=== PATIENT | female | born 1995 | race Caucasian/White ===

== ENCOUNTER 2020-07-07 15:47 | Emergency (ER) | payer BC, MEDICAID, SELFPAY ==
[2020-07-07] VITALS (8 sets, daily range): BP systolic 118–209; BP diastolic 83–124; PULSE 107–139; RESP 14–20; TEMP 36.2; O2SAT 93–100
--- NOTE | 2020-07-07 16:00 | ED.NAVMDI ---
HPI - Nausea/Vomiting/Diarrhea General Chief complaint: Nausea/Vomiting/Diarrhea Stated complaint: n/v Source: patient, EMS and RN notes reviewed Mode of arrival: EMS Limitations: no limitations History of Present Illness HPI Narrative: Patient is 25 years old white female presents with nausea, vomiting, stomach pain started yesterday. Patient had recurrent similar symptoms secondary to cyclic vomiting syndrome. Patient usually gets better on Haldol, Benadryl and morphine. Patient denies any fever, chills. History of type 1 diabetes, gastroparesis and cyclic vomiting syndrome Patient's mother told me that patient lost her job 1 week ago, been to 4 emergency room in the last 4 days for the same symptoms, sleeps on a mattress on the floor because no rooms available, severely depressed. Related Data Allergies Allergy/AdvReac Type Severity Reaction Status Date / Time hydralazine Allergy Hives Verified 07/07/20 15:51 Review of Systems Review of Systems: Narrative: CONSTITUTIONAL: Denies fever, chills, or sweats. EYES: Denies visual changes, redness, or discharge. ENT: Denies rhinorrhea, congestion, sore throat, or otalgia. CARDIOVASCULAR: Denies chest pain, palpitations, or edema. RESPIRATORY: Denies cough or dyspnea. GASTROINTESTINAL: Patient complaining of abdominal pain, nausea and vomiting GENITOURINARY: Denies dysuria or hematuria. SKIN: Denies rash or itching. MUSCULOSKELETAL: Denies back pain, joint pain, or myalgia. NEUROLOGIC: Denies headache, numbness, or weakness. PSYCHIATRIC: Denies anxiety or depression. PMFSH Family History Family History Other Family history of cardiovascular disease Social History Social History Smoking status: Never smoker Alcohol intake: never Exam Narrative: Exam Narrative: General appearance: Well-developed, well-nourished Skin: Normal color, right chest Port-A-Cath in place Head: Normocephalic, nontraumatic Eyes: Clear conjunctiva ENT: Oropharynx normal, ears normal, nose normal Neck: Supple, nontender Chest and respiratory: Airway patent, no respiratory distress, no accessory muscle use Heart: Regular rate/rhythm Abdomen: Soft, mild diffuse tenderness, no organomegaly, quiet bowel sounds Vascular: Normal peripheral pulses, normal capillary refill. Neurologic: Alert and oriented ?3, JAVA TECHNICAL MANAGER is normal as tested, no gross motor deficit Course Course Emergency Course: Stable, improving Vital Signs Vital signs: Vital Signs Temperature 36.2 C L 07/07/20 15:43 Pulse Rate 134 H 07/07/20 15:43 Respiratory Rate 20 07/07/20 15:43 Blood Pressure 209/124 H 07/07/20 15:43 Pulse Oximetry 93 07/07/20 15:43 Temperature 36.2 C L 07/07/20 16:35 Pulse Rate 109 H 07/07/20 17:53 Respiratory Rate 15 07/07/20 17:53 Blood Pressure 118/83 07/07/20 17:53 Pulse Oximetry 100 07/07/20 17:53 MDM - Nausea/Vomiting/Diarrhea MDM Narrative Medical decision making narrative: Cyclic vomiting syndrome is my concern Lab Data Result diagrams: 07/07/20 16:00 07/07/20 16:00 Labs: Lab Results 07/07/20 07/07/20 07/07/20 Range/Units 16:00 16:00 17:11 WBC 13.6 H (4.5-10.0) K/mm3 RBC 4.25 (4.2-5.4) M/mm3 Hgb 11.3 L (12.0-15.0) g/dL Hct 34.5 L (37.0-47.0) % MCV 81.2 (80-100) fl MCH 26.6 (26-34) pg MCHC 32.8 (32-36) g/dl RDW 13.1 (11.5-14.5) % Plt Count 435 H (150-375) k/mm3 MPV 10.1 (7.4-10.4) fl Immature Gran % (Auto) 0.2 (0-0.5) % Neut % (Auto) 70.0 (45.5-73.1) % Lymph % (Auto) 22.7 (18.3-44.2) %
[2020-07-07] MEDS: ONDANSETRON INJ 4 MG/2 ML VIAL IV PUSH (16:02)
[2020-07-07] MEDS: diphenhydrAMINE HCl INJ 50 MG/ML VIAL IV PUSH (16:03)
[2020-07-07] MEDS: MORPHINE SULFATE (*CRX) 4 MG/ML INJ IV PUSH (16:05)
[2020-07-07] MEDS: HALOPERIDOL LACTATE 5 MG/ML VIAL IM (16:05)
[2020-07-07 16:06] LABS: Basophils Percent Auto 0.3 % (0.2-1.2); Eosinophils Absolute Auto 0.1 K/mm3 (0-0.3); Eosinophils Percent Auto 0.5 % (0-4.4); Hematocrit 34.5 % (37.0-47.0); Hemoglobin 11.3 g/dL (12.0-15.0); Immature Granulocyte Absolute 0.03 K/mm3 (0.00-0.031); Immature Granulocyte Percent A 0.2 % (0-0.5); Lymphocytes Absolute Auto 3.09 K/mm3 (0.9-3.2); Lymphocytes Percent Auto 22.7 % (18.3-44.2); Mean Corpuscular HGB Conc 32.8 g/dl (32-36); Mean Corpuscular Hemoglobin 26.6 pg (26-34); Mean Corpuscular Volume 81.2 fl (80-100); Mean Platelet Volume 10.1 fl (7.4-10.4); Monocytes Absolute Auto 0.9 K/mm3 (0.1-0.6); Monocytes Percent Auto 6.3 % (2.6-8.5); Neutrophils Absolute Auto 9.5 K/mm3 (1.3-6.7); Platelet Count Result 435 k/mm3 (150-375); Red Blood Count 4.25 M/mm3 (4.2-5.4); Red Cell Distribution Width 13.1 % (11.5-14.5); White Blood Count 13.6 K/mm3 (4.5-10.0)
[2020-07-07] MEDS: SODIUM CHLORIDE 0.9% IV 1,000 ML 999 ML IV CONT (16:07)
[2020-07-07 16:19] LABS: Alanine Aminotransferase 14 U/L (4-35); Albumin Level 3.3 g/dL (3.5-5.1); Alkaline Phosphatase 104 U/L (38-126); Anion Gap 16 mmol/L (8-16); Aspartate Amino Transferase 16 U/L (14-36); Bilirubin,Total 0.5 mg/dL (0.2-1.3); Blood Urea Nitrogen 11 mg/dL (7-17); Calcium 8.8 mg/dL (8.4-10.2); Carbon Dioxide 17 mmol/L (22-30); Chloride 102 mmol/L (98-107); Estimated CRCL calculation 55 ml/min; Estimated Glomerular Filt Rate 55; Glucose 441 mg/dL (65-105); Lipase 65 U/L (23-300); Sodium 135 mmol/L (137-145)
[2020-07-07 17:23] LABS: Add Urine Microscopic? YES; Appearance Urine Clear (Clear); Bacteria Urine Trace /hpf; Bilirubin Urine Negative (Negative); Blood Urine 1+ (Negative); Color Urine Straw (Yellow); Glucose Urine UA 3+ mg/dL (Negative); Ketones Urine 2+ mg/dL (Negative); Leukocyte Esterase Ur Negative LEU/UL (Negative); Mucus Urine Rare /lpf; Nitrate Urine Negative (Negative); Protein Urine 3+ mg/dL (Negative); RBC Urine 0-2 /hpf (0-2); Specific Grav Ur 1.017 (1.001-1.035); Squamous Epithelial Cell Urine Moderate /hpf (Few); Urobilinogen Urine Negative mg/dL (<2.0); WBC Urine 0-3 /hpf
[2020-07-07] MEDS: INSULIN HUMAN REGULAR (*BKC) 100 UNITS/ML 6 UNITS SUB-Q (18:40)
--- NOTE | 2020-07-07 18:58 | PC.NURSE ---
Patient tolerated PO challenge well at this time.
== END 2020-07-07 19:27 | disposition home or self-care (01) ==
PROVIDERS: Emergency Provider Emergency Medicine; PCP Family Medicine
DX: R11.15 Cyclical vomiting syndrome unrelated to migraine (principal); E10.43 Type 1 diabetes mellitus with diabetic autonomic (poly)neuropathy; K31.84 Gastroparesis; E10.65 Type 1 diabetes mellitus with hyperglycemia; F32.9 Major depressive disorder, single episode, unspecified
CPT/HCPCS: 36415; 80053; 81001; 83690; 85025; 96361; 96372; 96374; 96375; 99284; J1200; J1630; J1815; J2270; J2405; J7030

== ENCOUNTER 2021-08-12 06:56 | Emergency (ER) | payer OTHER, SELFPAY ==
[2021-08-12] VITALS (8 sets, daily range): BP systolic 144–208; BP diastolic 86–122; PULSE 106–134; RESP 13–29; TEMP 36.8; O2SAT 98–100
[2021-08-12 07:08] LABS: Glucose Point of Care 408 mg/dl (65-105)
[2021-08-12] MEDS: INSULIN HUMAN REGULAR (*BKC) 100 UNITS/ML IV PUSH (07:43)
[2021-08-12] MEDS: METOCLOPRAMIDE HCL INJ 10 MG/2 ML VIAL IV PUSH (07:44)
[2021-08-12] MEDS: SODIUM CHLORIDE 0.9% IV 1,000 ML 999 ML IV CONT ×2 (07:44→09:43)
[2021-08-12] MEDS: diphenhydrAMINE HCl INJ 50 MG/ML VIAL IV PUSH (07:44)
[2021-08-12] MEDS: MORPHINE SULFATE (*CRX) 4 MG/ML INJ IV PUSH (07:44)
--- NOTE | 2021-08-12 07:48 | ED.NAVMDI ---
HPI - Nausea/Vomiting/Diarrhea General Chief complaint: Nausea/Vomiting/Diarrhea Stated complaint: nausea/vomiting Time Seen by Provider: 08/12/21 07:13 Source: patient Mode of arrival: ambulatory Limitations: no limitations History of Present Illness HPI Narrative: Patient is 26 years old white female presented to the ED with intractable vomiting. History of type 1 diabetes since 9 years old, cyclic vomiting syndrome. Patient was hospitalized at [facility] for 4 days and was discharged 2 days ago for cyclic vomiting syndrome. Patient reports that her symptoms did not get better at the time of discharge. Brought to the emergency room by private car. Patient lives with her mom with a lot of stress. She denies any fever, chills, chest pain or headache. She is telling me that usually Haldol and morphine usually gets the vomiting to quit Related Data Allergies Allergy/AdvReac Type Severity Reaction Status Date / Time hydralazine Allergy Hives Verified 08/12/21 06:59 Review of Systems Review of Systems: All systems reviewed & are unremarkable except as noted in HPI and below PMFSH Family History Family History Other Family history of cardiovascular disease Social History Social History Smoking status: Never smoker Alcohol intake: never Gender identity (if verbalized by the patient): Female Exam Narrative: General appearance: Well-developed, well-nourished, sick looking Skin: Pale Head: Normocephalic, nontraumatic Eyes: Clear conjunctiva ENT: Oropharynx normal, ears normal, nose normal Neck: Supple, nontender Chest and respiratory: Airway patent, no respiratory distress, no accessory muscle use Heart: Regular rate/rhythm Abdomen: Soft, mild diffuse abdominal tenderness, no guarding or rebound, no organomegaly, quiet bowel sounds Vascular: Normal peripheral pulses, normal capillary refill. Musculoskeletal: Normal range of motion, nontender back Neurologic: Alert and oriented ?3, BOTTLING LINE ATTENDANT is normal as tested, no gross motor deficit Course Course Emergency Course: Work-up today showed hyperglycemia, Diagnosis anxiety/inducing vomiting, cyclic vomiting syndrome, gastroparesis. Patient received 2 L of normal saline IV, 5 mg of Haldol IM, 10 mg of Reglan IV, 50 mg of Benadryl IV. Prior to discharge, Patient was able to keep fluids and crackers down prior to discharge Vital Signs Vital signs: Vital Signs Temperature 36.8 C 08/12/21 07:03 Pulse Rate 127 H 08/12/21 07:03 Respiratory Rate 20 08/12/21 07:03 Blood Pressure 170/114 H 08/12/21 07:03 Pulse Oximetry 100 08/12/21 07:03 Temperature 36.8 C 08/12/21 07:03 Pulse Rate 106 H 08/12/21 09:30 Respiratory Rate 13 08/12/21 09:30 Blood Pressure 144/86 H 08/12/21 09:30 Pulse Oximetry 98 08/12/21 09:30 MDM - Nausea/Vomiting/Diarrhea Differential Diagnosis Differential diagnosis: Likely other (Cyclic vomiting syndrome, gastroparesis, electrolyte imbalance, stress/depression) Lab Data Result diagrams: 08/12/21 08:13 08/12/21 08:13 Labs: Lab Results 08/12/21 08/12/21 08/12/21 Range/Units 07:06 08:13 08:13 WBC 10.6 H (4.5-10.0) K/mm3 RBC 4.41 (4.2-5.4) M/mm3 Hgb 10.5 L (12.0-15.0) g/dL Hct 33.7 L (37.0-47.0) % MCV 76.4 L (80-100) fl MCH 23.8 L (26-34) pg MCHC 31.2 L (32-36) g/dl RDW 16.8 H (11.5-14.5) % Plt Count 584 H (150-375) k/mm3 MPV 9.6 (7.4-10.4) fl Immature Gran % (Auto) 0.4 (0-0.5) % Neut % (Auto) 84.8 H (45.5-73.1) % Lymph % (Auto) 13.6 L
[2021-08-12] MEDS: HALOPERIDOL LACTATE 5 MG/ML VIAL IM (07:49)
[2021-08-12] MEDS: INSULIN HUMAN REGULAR (*BKC) 100 UNITS in SODIUM CHLORIDE 0.9% IV 99 ML 7 UNITS IV CONT (08:24)
[2021-08-12 08:25] LABS: Basophils Percent Auto 0.1 % (0.2-1.2); Eosinophils Percent Auto 0.2 % (0-4.4); Hematocrit 33.7 % (37.0-47.0); Hemoglobin 10.5 g/dL (12.0-15.0); Immature Granulocyte Absolute 0.04 K/mm3 (0.00-0.031); Immature Granulocyte Percent A 0.4 % (0-0.5); Lymphocytes Absolute Auto 1.44 K/mm3 (0.9-3.2); Lymphocytes Percent Auto 13.6 % (18.3-44.2); Mean Corpuscular HGB Conc 31.2 g/dl (32-36); Mean Corpuscular Hemoglobin 23.8 pg (26-34); Mean Corpuscular Volume 76.4 fl (80-100); Mean Platelet Volume 9.6 fl (7.4-10.4); Monocytes Absolute Auto 0.1 K/mm3 (0.1-0.6); Monocytes Percent Auto 0.9 % (2.6-8.5); Neutrophils Percent Auto 84.8 % (45.5-73.1); Platelet Count Result 584 k/mm3 (150-375); Red Blood Count 4.41 M/mm3 (4.2-5.4); Red Cell Distribution Width 16.8 % (11.5-14.5); White Blood Count 10.6 K/mm3 (4.5-10.0)
[2021-08-12 08:28] LABS: Glucose Point of Care 418 mg/dl (65-105)
[2021-08-12 08:29] LABS: Add Urine Microscopic? YES; Appearance Urine Cloudy (Clear); Bilirubin Urine Negative (Negative); Blood Urine 1+ (Negative); Color Urine Straw (Yellow); Glucose Urine UA 3+ mg/dL (Negative); Ketones Urine 1+ mg/dL (Negative); Leukocyte Esterase Ur Negative LEU/UL (Negative); Mucus Urine Rare /lpf; Nitrate Urine Negative (Negative); Protein Urine 3+ mg/dL (Negative); Specific Grav Ur 1.017 (1.001-1.035); Squamous Epithelial Cell Urine Many /hpf (Few); Urobilinogen Urine Negative mg/dL (<2.0)
[2021-08-12 08:35] LABS: Alanine Aminotransferase 18 U/L (4-35); Albumin Level 3.3 g/dL (3.5-5.1); Alkaline Phosphatase 121 U/L (38-126); Anion Gap 14 mmol/L (8-16); Aspartate Amino Transferase 22 U/L (14-36); Bilirubin,Total 0.2 mg/dL (0.2-1.3); Blood Urea Nitrogen 20 mg/dL (7-17); Calcium 8.6 mg/dL (8.4-10.2); Carbon Dioxide 18 mmol/L (22-30); Chloride 108 mmol/L (98-107); Estimated CRCL calculation 50 ml/min; Estimated Glomerular Filt Rate 50; Glucose 436 mg/dL (65-110); Phosphorus 4.2 mg/dL (2.5-4.5); Potassium 3.9 mmol/L (3.4-5.0); Sodium 140 mmol/L (137-145)
[2021-08-12 08:39] LABS: Beta-Hydroxybutyrate/Acetoacetate 4.14 mmol/L (0.02-0.27)
[2021-08-12 08:41] LABS: Alveolar/Arterial O2 Gradient 12.4 mmHg; Carboxyhemoglobin 0.3 % THb (0-2.0); Fractional Inspired Oxygen 21 %; HCO3 ABG 18.8 mEq/l (22.0-26.0); Methemoglobin ABG 0.3 %THb (0-1.5); Oxygen Content ABG 14.3 %vol (16.0-22.0); Oxygen Saturation ABG 97.8 % (95.0-100.0); Oxyhemoglobin 96.7 % THb (90.0-100.0); PCO2 ABG 30.2 mmHg (35.0-45.0); PO2 ABG 101.2 mmHg (80.0-100.0); PO2 FiO2 Ratio Arterial Blood 4.82 %; Reduced Hemoglobin 2.7 %THb (0-5.0); Total Hemoglobin 10.4 g/dL (12.0-18.0); pH ABG 7.411 (7.350-7.450)
[2021-08-12 08:43] LABS: Modified Allen's Test Pass; Site Drawn LEFT RADIAL
--- NOTE | 2021-08-12 08:58 | PC.NURSE ---
Per Dr. Babin, discontinuing insulin drip
[2021-08-12 09:36] LABS: Glucose Point of Care 301 mg/dl (65-105)
[2021-08-12] MEDS: HEPARIN SODIUM LOCK FLUSH 500 UNITS/5 ML VIAL IV PUSH (12:03)
== END 2021-08-12 12:04 | disposition home or self-care (01) ==
PROVIDERS: Emergency Provider Emergency Medicine; PCP Family Medicine
DX: R11.15 Cyclical vomiting syndrome unrelated to migraine (principal); E10.43 Type 1 diabetes mellitus with diabetic autonomic (poly)neuropathy; K31.84 Gastroparesis
CPT/HCPCS: 36415; 36600; 80053; 81001; 81025; 82010; 82375; 82805; 82948; 83050; 83735; 84100; 85025; 87086; 87088; 96361; 96365; 96372; 96375; 96376; 99284; J1200; J1630; J1642; J1815; J2270; J2765; J7030

== ENCOUNTER 2021-08-13 18:05 | Emergency (ER) | payer OTHER, SELFPAY ==
[2021-08-13] VITALS (7 sets, daily range): BP systolic 102–183; BP diastolic 88–110; PULSE 109–128; RESP 18; TEMP 37.1; O2SAT 98–100
[2021-08-13 18:12] LABS: Glucose Point of Care 218 mg/dl (65-105)
[2021-08-13] MEDS: METOCLOPRAMIDE HCL INJ 10 MG/2 ML VIAL IV PUSH (18:59)
[2021-08-13] MEDS: diphenhydrAMINE HCl INJ 50 MG/ML VIAL 25 MG IV PUSH (18:59)
[2021-08-13] MEDS: SODIUM CHLORIDE 0.9% IV 1,000 ML 999 ML IV CONT ×2 (18:59→21:26)
--- NOTE | 2021-08-13 19:00 | PC.NURSE ---
Port A cath accessed by RN. Unable to get blood return. This RN and ED phleb attempted x 1. Unable to obtain. Lab called for blood draw attempt.
[2021-08-13 19:47] LABS: Basophils Percent Auto 0.4 % (0.2-1.2); Eosinophils Absolute Auto 0.1 K/mm3 (0-0.3); Eosinophils Percent Auto 0.8 % (0-4.4); Hematocrit 33.6 % (37.0-47.0); Hemoglobin 10.4 g/dL (12.0-15.0); Immature Granulocyte Absolute 0.03 K/mm3 (0.00-0.031); Immature Granulocyte Percent A 0.4 % (0-0.5); Lymphocytes Absolute Auto 2.75 K/mm3 (0.9-3.2); Lymphocytes Percent Auto 33.2 % (18.3-44.2); Mean Corpuscular Volume 77.6 fl (80-100); Monocytes Absolute Auto 0.6 K/mm3 (0.1-0.6); Monocytes Percent Auto 6.9 % (2.6-8.5); Neutrophils Absolute Auto 4.8 K/mm3 (1.3-6.7); Neutrophils Percent Auto 58.3 % (45.5-73.1); Platelet Count Result 519 k/mm3 (150-375); Red Blood Count 4.33 M/mm3 (4.2-5.4); Red Cell Distribution Width 16.6 % (11.5-14.5); White Blood Count 8.3 K/mm3 (4.5-10.0)
[2021-08-13 19:59] LABS: Alanine Aminotransferase 14 U/L (4-35); Albumin Level 3.1 g/dL (3.5-5.1); Alkaline Phosphatase 113 U/L (38-126); Anion Gap 12 mmol/L (8-16); Aspartate Amino Transferase 23 U/L (14-36); Bilirubin,Total 0.4 mg/dL (0.2-1.3); Blood Urea Nitrogen 13 mg/dL (7-17); Calcium 8.3 mg/dL (8.4-10.2); Carbon Dioxide 18 mmol/L (22-30); Chloride 106 mmol/L (98-107); Estimated CRCL calculation 51 ml/min; Estimated Glomerular Filt Rate 50; Glucose 234 mg/dL (65-110); Lipase 17 U/L (23-300); Potassium 3.3 mmol/L (3.4-5.0); Sodium 136 mmol/L (137-145)
--- NOTE | 2021-08-13 19:59 | PC.NURSE ---
Pt reports abdominal pain. ALTON Reyes made aware.
[2021-08-13 20:08] LABS: Add Urine Microscopic? YES; Appearance Urine Cloudy (Clear); Bilirubin Urine Negative (Negative); Blood Urine 1+ (Negative); Color Urine Yellow (Yellow); Glucose Urine UA 3+ mg/dL (Negative); Ketones Urine 1+ mg/dL (Negative); Leukocyte Esterase Ur Negative LEU/UL (Negative); Mucus Urine Rare /lpf; Nitrate Urine Negative (Negative); Protein Urine 3+ mg/dL (Negative); Specific Grav Ur 1.011 (1.001-1.035); Squamous Epithelial Cell Urine Many /hpf (Few); Urobilinogen Urine Negative mg/dL (<2.0)
--- NOTE | 2021-08-13 21:14 | PC.NURSE ---
Pt up to [facility] . States she took a few sips of diet rafa mist and was unable to tolerate liquids at this time, no nausea or vomiting.
[2021-08-13] MEDS: MORPHINE SULFATE (*CRX) 4 MG/ML INJ IV PUSH (21:26)
--- NOTE | 2021-08-13 21:36 | ED.NAVMDI ---
HPI - Nausea/Vomiting/Diarrhea General Chief complaint: Nausea/Vomiting/Diarrhea Stated complaint: nausea, lightheaded Time Seen by Provider: 08/13/21 18:21 History of Present Illness HPI Narrative: Patient is a 26-year-old female with history of type 1 diabetes and gastroparesis who presents ER with nausea and vomiting. Patient reports that she is currently in town from [place] visiting her mother. Her underwriting support manager is located in [place]. Patient reports that she receives a cocktail of Reglan, morphine, and Benadryl and this helps her symptoms. Blood sugars have been running in the 200s. She has been able to give herself medication. She just reports her vomiting has been intense and she cannot control at home with Zofran. Related Data Allergies Allergy/AdvReac Type Severity Reaction Status Date / Time hydralazine Allergy Hives Verified 08/12/21 06:59 Review of Systems Review of Systems: All systems reviewed & are unremarkable except as noted in HPI and below Constitutional: Constitutional: Denies chills, Reports fatigue, Denies fever(s) and Reports weakness ENT: Denies nasal congestion and Denies sore throat Cardiovascular: Cardiovascular: Denies chest pain, Denies rapid heart rate and Denies radiating jaw, neck or arm pain Respiratory: Respiratory: Denies cough and Denies dyspnea Gastrointestinal: Gastrointestinal: Reports abdominal pain, Denies diarrhea, Reports nausea and Reports vomiting PMFSH Past Medical History Medical History (Updated 08/14/21 @ 00:00 by Background Daemon) Depression Diabetic gastroparesis Port-A-Cath in place Type 1 diabetes Surgical History Surgical History (Updated 08/13/21 @ 21:42 by Leo Reyes MD) History of cholecystectomy Family History Family History Other Family history of cardiovascular disease Social History Social History Smoking status: Never smoker Alcohol intake: never Gender identity (if verbalized by the patient): Female Exam Narrative: GENERAL: Chronically ill-appearing, well-nourished, and in no acute distress. HEAD: Normocephalic, atraumatic. EYES: PERRL and EOMI. NECK: Supple. CHEST: Clear to auscultation. No respiratory distress. Port-A-Cath in right chest wall. HEART: Regular rate and rhythm. Normal peripheral pulses. ABDOMEN: Soft, mild diffuse discomfort worse in the epigastrium, nondistended. EXTREMITIES: Normal range of motion. No edema. SKIN: Warm, dry, no rash. NEURO: Alert and oriented x3. PSYCH: Normal mood and affect. Course Course Emergency Course: Patient hydrated. She received some Reglan and Benadryl and she was not vomiting in the room. She was accusing the nurse of leaking some of her medications. Patient had persistent tachycardia. However her symptoms significantly improved after she received her morphine. Suspect that patient is having issues with narcotic withdrawal as opposed to gastroparesis. She will be discharged. Vital Signs Vital signs: Vital Signs Temperature 98.7 F 08/13/21 18:12 Pulse Rate 120 H 08/13/21 18:12 Respiratory Rate 18 08/13/21 18:12 Blood Pressure 174/100 H 08/13/21 18:12 Pulse Oximetry 100 08/13/21 18:12 Temperature 98.7 F 08/13/21 18:12 Pulse Rate 110 H 08/13/21 22:30 Respiratory Rate 18 08/13/21 22:30 Blood Pressure 168/98 H 08/13/21 22:30 Pulse Oximetry 98 08/13/21 22:30 MDM - Nausea/Vomiting/Diarrhea Lab Data Result diagrams: 08/13/21 19:43 08/13/21 19:43 Labs: Lab Results 08/13/21 08/13/21 08/13/21 Range/Units 18:09 19:43 19:43 WBC 8.3 (4.5-10.0) K/mm3 RBC 4.33 (4.2-5.4) M/mm3 Hgb 10.4 L (12.0-15.0) g/dL Hct 33.6 L (37.0-47.0) % MCV 77.6 L (80-100) fl MCH 24.0 L (26-34) pg MCHC 31.0 L (32-36) g/dl RDW 16.6 H (11.5-14.5) % Plt Count 519 H (150-375)
--- NOTE | 2021-08-13 21:54 | PC.NURSE ---
Pt laying on stretcher, reports relief of s/s.
== END 2021-08-13 22:31 | disposition home or self-care (01) ==
PROVIDERS: Emergency Provider Emergency Medicine; PCP Family Medicine
DX: E10.43 Type 1 diabetes mellitus with diabetic autonomic (poly)neuropathy (principal); K31.84 Gastroparesis; Z76.5 Malingerer [conscious simulation]
CPT/HCPCS: 36415; 80053; 81001; 81025; 82948; 83690; 85025; 87086; 87088; 96361; 96374; 96375; 99284; J1200; J2270; J2765; J7030

== ENCOUNTER 2022-02-23 10:51 | Emergency (ER) | payer OTHER, SELFPAY ==
[2022-02-23 11:22] VITALS: BP 155/100; PULSE 115; RESP 16; TEMP 36.8; O2SAT 100
[2022-02-23 12:26] LABS: Basophils Percent Auto 0.3 % (0.2-1.2); Eosinophils Absolute Auto 0.1 K/mm3 (0-0.3); Eosinophils Percent Auto 1.8 % (0-4.4); Hemoglobin 12.5 g/dL (12.0-15.0); Immature Granulocyte Absolute 0.01 K/mm3 (0.00-0.031); Immature Granulocyte Percent A 0.1 % (0-0.5); Lymphocytes Absolute Auto 2.36 K/mm3 (0.9-3.2); Lymphocytes Percent Auto 30.3 % (18.3-44.2); Mean Corpuscular HGB Conc 32.9 g/dl (32-36); Mean Corpuscular Hemoglobin 25.9 pg (26-34); Mean Corpuscular Volume 78.7 fl (80-100); Mean Platelet Volume 10.1 fl (7.4-10.4); Monocytes Absolute Auto 0.4 K/mm3 (0.1-0.6); Monocytes Percent Auto 4.9 % (2.6-8.5); Neutrophils Absolute Auto 4.9 K/mm3 (1.3-6.7); Neutrophils Percent Auto 62.6 % (45.5-73.1); Platelet Count Result 451 k/mm3 (150-375); Red Blood Count 4.83 M/mm3 (4.2-5.4); Red Cell Distribution Width 13.6 % (11.5-14.5); White Blood Count 7.8 K/mm3 (4.5-10.0)
[2022-02-23 12:27] LABS: Appearance Urine Clear (Clear); Bilirubin Urine Negative (Negative); Blood Urine 1+ (Negative); Glucose Urine UA 2+ mg/dL (Negative); Ketones Urine Trace mg/dL (Negative); Leukocyte Esterase Ur Negative LEU/UL (Negative); Nitrate Urine Negative (Negative); Protein Urine 3+ mg/dL (Negative); Specific Grav Ur 1.015 (1.001-1.035); Urobilinogen Urine 0.2 mg/dL (<2.0); pH Urine 5.5 (5.0-9.0)
[2022-02-23 12:36] LABS: Alanine Aminotransferase 26 U/L (6-35); Albumin Level 3.8 g/dL (3.5-5.1); Alkaline Phosphatase 221 U/L (38-126); Anion Gap 12 mmol/L (8-16); Aspartate Amino Transferase 20 U/L (14-36); Bilirubin,Total 0.5 mg/dL (0.2-1.3); Blood Urea Nitrogen 25 mg/dL (7-17); Calcium 8.7 mg/dL (8.4-10.2); Carbon Dioxide 20 mmol/L (22-30); Chloride 102 mmol/L (98-107); Estimated CRCL calculation 30 ml/min; Estimated Glomerular Filt Rate 28; Glucose 433 mg/dL (65-110); Lipase 90 U/L (23-300); Potassium 4.7 mmol/L (3.4-5.0); Sodium 134 mmol/L (137-145)
[2022-02-23 12:47] LABS: Add Urine Microscopic? YES; Color Urine Light Yellow (Yellow)
[2022-02-23 12:50] LABS: Bacteria Urine Trace /hpf; Mucus Urine Rare /lpf; RBC Urine 0-2 /hpf (0-2); Squamous Epithelial Cell Urine Rare /hpf (Few)
[2022-02-23] MEDS: SODIUM CHLORIDE 0.9% IV 1,000 ML 999 ML IV CONT (12:53)
[2022-02-23] MEDS: METOCLOPRAMIDE HCL INJ 10 MG/2 ML VIAL 5 MG IV PUSH (12:53)
[2022-02-23] MEDS: MORPHINE SULFATE (*CRX) 4 MG/ML INJ IV PUSH (12:54)
[2022-02-23 14:22] VITALS: BP 139/94; PULSE 112; RESP 16; O2SAT 98
[2022-02-23] MEDS: INSULIN HUMAN REGULAR (*BKC) 100 UNITS/ML 10 UNITS IV PUSH (14:27)
[2022-02-23] MEDS: SODIUM CHLORIDE 0.9% IV 1,000 ML 999 ML (14:59)
[2022-02-23 16:42] VITALS: BP 139/92; PULSE 89; RESP 16; O2SAT 98
--- NOTE | 2022-03-16 17:12 | ED.GENADULT ---
HPI - General Adult General Chief complaint: Abdominal Pain Stated complaint: abd pain, vomiting Time Seen by Provider: 02/23/22 12:19 Source: patient Mode of arrival: ambulatory Limitations: no limitations History of Present Illness HPI narrative: 26-year-old with a history of diabetic gastroparesis here with complaints of nausea, vomiting and abdominal pain Onset (ago): day(s) (2) Radiation: non-radiation and proximal Quality: aching Pain Consistency: constant Exacerbating factors: none Associated symptoms: nausea/vomiting Treatments prior to arrival: none Related Data Allergies Allergy/AdvReac Type Severity Reaction Status Date / Time hydralazine Allergy Hives Verified 02/23/22 11:21 Review of Systems Review of Systems: All systems reviewed & are unremarkable except as noted in HPI and below Constitutional: Constitutional: Reports no additional constitutional complaints Eyes: Eyes: Reports no additional eye complaints ENT: Reports system reviewed and no additional complaints, except as documented Cardiovascular: Cardiovascular: Reports no additional cardiovascular complaints Respiratory: Respiratory: Reports no additional respiratory complaints Gastrointestinal: Gastrointestinal: Reports as per HPI Musculoskeletal: Musculoskeletal: Reports no additional musculoskeletal complaints [facility] Past Medical History Medical History (Updated 08/14/21 @ 00:00 by [facility] Nelsy) Depression Diabetic gastroparesis Port-A-Cath in place Type 1 diabetes Surgical History Surgical History (Updated 08/13/21 @ 21:42 by Leo Reyes MD) History of cholecystectomy Family History Family History Other Family history of cardiovascular disease Social History Social History Smoking status: Never smoker Alcohol intake: never Gender identity (if verbalized by the patient): Female Exam Narrative: GENERAL: Well-appearing, well-nourished, and in no acute distress. HEAD: Normocephalic, atraumatic. EYES: PERRLA and EOMI.. NECK: Supple. CHEST: Clear to auscultation. No respiratory distress. HEART: Regular rate and rhythm. No murmur heard. Normal peripheral pulses. ABDOMEN: Soft, nontender, nondistended, normal active bowel sounds. EXTREMITIES: Normal range of motion. No edema. SKIN: Warm, dry, no rash. NEURO: No focal deficits. Alert and oriented x3. PSYCH: Normal mood and affect. Course Course Emergency Course: pt left AMA Vital Signs Vital signs: Vital Signs Temperature 36.8 C 02/23/22 11:22 Pulse Rate 115 H 02/23/22 11:22 Respiratory Rate 16 02/23/22 11:22 Blood Pressure 155/100 H 02/23/22 11:22 Pulse Oximetry 100 02/23/22 11:22 Temperature 36.8 C 02/23/22 11:22 Pulse Rate 89 02/23/22 16:42 Respiratory Rate 16 02/23/22 16:42 Blood Pressure 139/92 H 02/23/22 16:42 Pulse Oximetry 98 02/23/22 16:42 Medical Decision Making Vital Signs Vital Signs: Vital Signs Temperature 36.8 C 02/23/22 11: Pulse Rate 115 H 02/23/22 11:22 Respiratory Rate 16 02/23/22 11:22 Blood Pressure 155/100 H 02/23/22 11:22 Pulse Oximetry 100 02/23/22 11:22 Temperature 36.8 C 02/23/22 11:22 Pulse Rate 89 02/23/22 16:42 Respiratory Rate 16 02/23/22 16:42 Blood Pressure 139/92 H 02/23/22 16:42 Pulse Oximetry 98 02/23/22 16:42 Lab Data Result diagrams: 02/23/22 12:16 02/23/22 12:16 Labs: Lab Results 02/23/22 02/23/22 02/23/22 Range/Units 12:16 12:16 12:16 WBC 7.8 (4.5-10.0) K/mm3 RBC 4.83 (4.2-5.4) M/mm3 Hgb 12.5 (12.0-15.0) g/dL Hct 38.0 (37.0-47.0) % MCV 78.7 L (80-100) fl MCH 25.9 L (26-34) pg MCHC 32.9 (32-36) g/dl RDW 13.6 (11.5-14.5) % Plt Count 451 H (150-375) k/mm3 MPV 10.1 (7.4-10.4) fl Immature Gran % (Auto) 0.1 (0-0.5) % Ne
== END 2022-02-23 16:45 | disposition left against medical advice (07) ==
PROVIDERS: Emergency Medicine; Emergency Provider Family Medicine; PCP Family Medicine
DX: E10.43 Type 1 diabetes mellitus with diabetic autonomic (poly)neuropathy (principal); K31.84 Gastroparesis
CPT/HCPCS: 36415; 80053; 81001; 81025; 83690; 85025; 96361; 96374; 96375; 99284; J1642; J1815; J2270; J2765; J7030

== ENCOUNTER 2022-06-02 07:21 | Emergency (ER) | payer OTHER, SELFPAY ==
[2022-06-02 07:25] VITALS: BP 211/133; PULSE 114; RESP 18; TEMP 36.7; O2SAT 99
[2022-06-02 07:28] LABS: Glucose Point of Care > 500 mg/dl (65-105)
--- NOTE | 2022-06-02 07:32 | ED.GENADULT ---
HPI - General Adult General Chief complaint: Recheck/Abnormal Lab/Rx Stated complaint: stomach pain, DM type 1 Time Seen by Provider: 06/02/22 07:23 History of Present Illness HPI narrative: 26-year-old female with history of type 1 diabetes and gastroparesis presenting to the emergency department for evaluation of persistent upper abdominal pain that she suspects is a gastroparesis flare. Patient states for the last 5 days she has had upper abdominal pain and poorly controlled blood sugars. Patient states her blood sugars have been running greater than 500 at home. Patient does report associated nausea and vomiting. Patient denies any fevers. Related Data Home Medications Medication Instructions Recorded Confirmed diazepam 10 mg tablet mg PRN Nausea And Vomiting 06/02/22 fluconazole 150 mg tablet mg 06/02/22 hydroxyzine HCl 25 mg tablet mg 06/02/22 insulin glargine 100 unit/mL (3 27 unit subcut HS 06/02/22 mL) subcutaneous pen (Lantus Solostar U-100 Insulin) insulin lispro 100 unit/mL subcut 06/02/22 subcutaneous pen losartan 25 mg tablet mg 06/02/22 ondansetron 4 mg disintegrating 4 mg PO Q4H PRN Nausea And Vomiting 06/02/22 tablet promethazine 25 mg tablet 25 mg PRN Nausea And Vomiting 06/02/22 Allergies Allergy/AdvReac Type Severity Reaction Status Date / Time hydralazine Allergy Hives Verified 06/02/22 07:31 Review of Systems Review of Systems: CONSTITUTIONAL: Denies fever, chills, or sweats. EYES: Denies visual changes, redness, or discharge. ENT: Denies rhinorrhea, congestion, sore throat, or otalgia. CARDIOVASCULAR: Denies chest pain, palpitations, or edema. RESPIRATORY: Denies cough or dyspnea. GASTROINTESTINAL: See HPI GENITOURINARY: Denies dysuria or hematuria. SKIN: Denies rash or itching. MUSCULOSKELETAL: Denies back pain, joint pain, or myalgia. NEUROLOGIC: Denies headache, numbness, or weakness. [facility] Past Medical History Medical History (Updated 06/02/22 @ 10:39 by Darwin Roman MD) Depression Diabetic gastroparesis Port-A-Cath in place Type 1 diabetes Surgical History Surgical History (Updated 08/13/21 @ 21:42 by Leo Reyes MD) History of cholecystectomy Family History Family History Other Family history of cardiovascular disease Social History Social History Smoking status: Never smoker Alcohol intake: never Gender identity (if verbalized by the patient): Female Exam Narrative: APPEARANCE: Well appearing, no pain, no distress, well-nourished. HEAD: normocephalic, atraumatic. EYES: PERRLA/EOMI, conjunctivae clear. NOSE: Normal no drainage NECK: Supple. No adenopathy, no masses. RESPIRATORY: Airway patent, respirations nonlabored. Clear to auscultation bilaterally, no rales, rhonchi, wheezing. CARDIOVASCULAR: Regular rate and rhythm without murmurs rubs or gallops. ABDOMINAL: Soft, nontender, nondistended, normal bowel sounds MUSCULOSKELETAL: Moves all extremities. Strength/ROM intact, No edema, No calf tenderness. NEURO: Alert. Cranial nerves II through XII intact. Grossly intact SKIN: Warm, dry. Normal Color Course Course Emergency Course: Patient states that Haldol morphine and Benadryl typically help with her gastroparesis flares. Patient was treated with 2 L of IV saline in addition to IM Haldol, IV morphine and IV Benadryl. Beta hydroxybutyrate and lactic acid were ordered to evaluate for possible DKA. 8:40 AM patient's blood sugar was 535 on the CMP. Patient does not have an anion gap and patient does not have an elevated lactic acid or beta hydroxybutyrate. No concern for DKA. Patient's sliding scale for a blood sugar of 530 is approximately 8 units per patient's recollection. Patient will be treated with 6 units of IV insulin along with the 2 L of normal saline. On reevaluation patient states she does feel improved and pat
[2022-06-02 07:48] LABS: Basophils Percent Auto 0.3 % (0.2-1.2); Eosinophils Absolute Auto 0.2 K/mm3 (0-0.3); Eosinophils Percent Auto 2.5 % (0-4.4); Hematocrit 32.7 % (37.0-47.0); Immature Granulocyte Absolute 0.03 K/mm3 (0.00-0.031); Immature Granulocyte Percent A 0.4 % (0-0.5); Lymphocytes Absolute Auto 2.43 K/mm3 (0.9-3.2); Lymphocytes Percent Auto 31.5 % (18.3-44.2); Mean Corpuscular HGB Conc 33.6 g/dl (32-36); Mean Corpuscular Hemoglobin 26.5 pg (26-34); Mean Corpuscular Volume 78.8 fl (80-100); Mean Platelet Volume 10.2 fl (7.4-10.4); Monocytes Absolute Auto 0.5 K/mm3 (0.1-0.6); Monocytes Percent Auto 6.7 % (2.6-8.5); Neutrophils Absolute Auto 4.5 K/mm3 (1.3-6.7); Neutrophils Percent Auto 58.6 % (45.5-73.1); Platelet Count Result 418 k/mm3 (150-375); Red Blood Count 4.15 M/mm3 (4.2-5.4); White Blood Count 7.7 K/mm3 (4.5-10.0)
[2022-06-02] MEDS: SODIUM CHLORIDE 0.9% IV 1,000 ML 999 ML IV CONT ×2 (07:55→07:56)
[2022-06-02] MEDS: MORPHINE SULFATE (*CRX) 4 MG/ML INJ IV PUSH (07:56)
[2022-06-02] MEDS: diphenhydrAMINE HCl INJ 50 MG/ML VIAL 25 MG IV PUSH (07:56)
[2022-06-02] MEDS: HALOPERIDOL LACTATE 5 MG/ML VIAL IM (08:01)
[2022-06-02 08:03] LABS: Beta-Hydroxybutyrate/Acetoacetate 0.27 mmol/L (0.02-0.27)
[2022-06-02 08:04] LABS: Alanine Aminotransferase 42 U/L (6-35); Albumin Level 3.3 g/dL (3.5-5.1); Alkaline Phosphatase 277 U/L (38-126); Anion Gap 7 mmol/L (8-16); Aspartate Amino Transferase 37 U/L (14-36); Bilirubin,Total 0.3 mg/dL (0.2-1.3); Blood Urea Nitrogen 26 mg/dL (7-17); Calcium 7.6 mg/dL (8.4-10.2); Carbon Dioxide 23 mmol/L (22-30); Chloride 100 mmol/L (98-107); Estimated CRCL calculation 28 ml/min; Estimated Glomerular Filt Rate 26; Glucose 535 mg/dL (65-110); Potassium 4.1 mmol/L (3.4-5.0); Sodium 130 mmol/L (137-145)
[2022-06-02 08:31] LABS: Appearance Urine Clear (Clear); Bilirubin Urine Negative (Negative); Blood Urine Trace-intact (Negative); Color Urine Yellow (Yellow); Glucose Urine UA 2+ mg/dL (Negative); Ketones Urine Negative (Negative); Leukocyte Esterase Ur Negative LEU/UL (Negative); Nitrate Urine Negative (Negative); Protein Urine 3+ mg/dL (Negative); Urobilinogen Urine 0.2 mg/dL (<2.0)
[2022-06-02 08:33] LABS: Mucus Urine Rare /lpf; RBC Urine 0-2 /hpf (0-2); Squamous Epithelial Cell Urine Rare /hpf (Few); WBC Urine 0-3 /hpf
[2022-06-02 08:35] LABS: Add Urine Microscopic? YES
[2022-06-02 08:39] VITALS: BP 152/103; PULSE 87; RESP 18; O2SAT 100
[2022-06-02 08:45] VITALS: BP 140/94; PULSE 84; RESP 14; O2SAT 100
[2022-06-02] MEDS: INSULIN HUMAN REGULAR (*BKC) 100 UNITS/ML 6 UNITS IV PUSH (08:57)
[2022-06-02 09:15] VITALS: BP 117/82; PULSE 80; RESP 16; O2SAT 100
[2022-06-02 09:56] LABS: Glucose Point of Care 288 mg/dl (65-105)
[2022-06-02 10:07] VITALS: BP 113/82; PULSE 77; RESP 14; O2SAT 100
[2022-06-02 10:48] VITALS: BP 114/82; PULSE 90; RESP 16; O2SAT 96
== END 2022-06-02 10:49 | disposition home or self-care (01) ==
PROVIDERS: Emergency Provider Emergency Medicine
DX: E10.65 Type 1 diabetes mellitus with hyperglycemia (principal); E10.43 Type 1 diabetes mellitus with diabetic autonomic (poly)neuropathy; K31.84 Gastroparesis; Z79.4 Long term (current) use of insulin
CPT/HCPCS: 36415; 80053; 81001; 81025; 82010; 82948; 83605; 85025; 96361; 96372; 96374; 96375; 99284; J1200; J1630; J1642; J1815; J2270; J7030

== ENCOUNTER 2024-12-22 18:03 | Emergency (ER) | payer MEDICARE, MEDICAID, SELFPAY ==
--- NOTE | ~2024-12-22 | XR_ITS ---
EXAMINATION: XR chest 2V 12/22/2024 19:15 INDICATION: Chest pain with vomiting PROCEDURE: 2 view chest COMPARISON: No prior studies for comparison. FINDINGS: The lungs are clear. The cardiomediastinal silhouette is within normal limits. There are no pleural effusions. There is no pneumothorax suspected. Portacatheter tip in the SVC. Right IJ central line tip in the right atrium. IMPRESSION: 1: NO ACUTE CARDIOPULMONARY DISEASE. Reviewed, dictated and finalized at location O.
--- NOTE | ~2024-12-22 | CT_ITS ---
EXAMINATION: CTA chest PE abdomen pel DATE: 12/22/2024 23:15 INDICATION: Chest pain TECHNIQUE: Computed tomography (CT) pulmonary angiogram of the chest was performed with 100 mL Omnipaque-350 intravenous contrast. Additional 3D reconstructions utilizing coronal maximum intensity projection (MIP) were performed. CT of the abdomen and pelvis was performed with intravenous contrast utilizing the same contrast bolus following a short delay. Automated exposure control and iterative reconstruction technique were employed. The dose-length product was 584.84 mGy-cm. COMPARISON: None FINDINGS: Chest: No pulmonary embolism. Consolidation in the superior segment and posterior basilar segment of the left lower lobe with some intervening tree-in-bud opacities consistent with pneumonia. No pulmonary edema, pleural effusion or pneumothorax. Heart size is normal. No pericardial effusion. Thoracic aorta is normal in caliber with no dissection. Diffuse wall thickening with the distal esophagus.. Large bore tunneled right internal jugular central venous catheter with distal tip at the level of the tricuspid valve plane. There is a second left internal jugular central venous port catheter with distal tip at the caudal superior vena cava. Bones are unremarkable. Abdomen/pelvis: Cholecystectomy clips at the gallbladder fossa. Liver, spleen, pancreas, bilateral adrenal glands and kidneys are normal. Bowels are normal. The appendix is not visualized. No pericecal inflammatory change to suggest acute appendicitis. Bladder, anteverted uterus and and bilateral adnexa are unremarkab le. Small amount of likely physiologic free fluid in the cul-de-sac. No abscess or free intraperitoneal gas. Stimulator leads likely for treatment of reported gastroparesis terminate along the greater curvature of the stomach with prominent supply located in the subcutaneous fat at the anterior left abdomen. There are extensive vascular calcifications along many of the arteries in the abdomen and pelvis extending to the proximal thighs chronic appearing L3 compression fracture with 20% anterior vertebral body height loss with additional Schmorl's node along the anterior superior endplate of L3. IMPRESSION: 1. No pulmonary embolism or acute intra-abdominal/pelvic process. 2. Left lower lobe pneumonia. 3. Distal esophageal wall thickening suggestive of esophagitis such as in the setting of reflux. Reviewed, dictated and finalized at location A. IMPRESSION: 1. No pulmonary embolism or acute intra-abdominal/pelvic process. 2. Left lower lobe pneumonia. 3. Distal esophageal wall thickening suggestive of esophagitis such as in the s etting of reflux.
[2024-12-22 18:03] VITALS: BP 217/129; PULSE 119; RESP 18; O2SAT 99
[2024-12-22 18:14] VITALS: RESP 17; O2SAT 100
--- NOTE | 2024-12-22 18:29 | ECG_ITS ---
Test Date: 2024-12-22 18:46:47 Measurements Intervals [place] Rate: 112 P: 38 IA: 148 QRS: -10 QRSD: 85 T: 50 QT: 351 QTc: 481 Interpretive Statements SINUS RHYTHM WITH BASELINE ARTIFACT No previous ECG available for comparison Electronically Signed On 12-23-2024 10:49:04 CDT by Shaq Pretty M.D.
[2024-12-22 19:17] VITALS: PULSE 113; RESP 18; O2SAT 99
--- NOTE | 2024-12-22 19:59 | ED.GENADULT ---
HPI - General Adult General Chief complaint: Unspecified <Jacob Izaguirre MD - Last Filed: 12/23/24 01:36> Stated complaint: CP w/ N/V <Jacob Izaguirre MD - Last Filed: 12/23/24 01:36> Time Seen by Provider: 12/22/24 19:42 <Jacob Izaguirre MD - Last Filed: 12/23/24 01:36> History of Present Illness HPI narrative: Patient is a 29-year-old female who presents to the emergency department this evening complaining of chest pain in her mid chest radiating to her back. Also complaining of abdominal pain. States that this is a chronic condition for her and initially they thought it was due to gastroparesis, however, she is currently pending in upper and lower endoscopy as they are trying to rule out Crohn's disease. Patient is a dialysis patient and she has her dialysis sessions on Tuesdays, and Saturdays but she missed her session secondary to a doctor's appointment. <Jacob Izaguirre MD - Last Filed: 12/23/24 01:36> Related Data Home medications: Home Medications ?Medication ?Instructions ?Recorded ?Confirmed ?Last Taken ?Type diazepam 10 mg tablet mg PRN Nausea And Vomiting 06/02/22 Unknown History fluconazole 150 mg tablet mg 06/02/22 Unknown History hydroxyzine HCl 25 mg tablet mg 06/02/22 Unknown History insulin glargine 100 unit/mL (3 27 unit subcut HS 06/02/22 Unknown History mL) subcutaneous pen (Lantus Solostar U-100 Insulin) insulin lispro 100 unit/mL subcut 06/02/22 Unknown History subcutaneous pen losartan 25 mg tablet mg 06/02/22 Unknown History ondansetron 4 mg disintegrating 4 mg PO Q4H PRN Nausea And Vomiting 06/02/22 Unknown History tablet promethazine 25 mg tablet 25 mg PRN Nausea And Vomiting 06/02/22 Unknown History <Jacob Izaguirre MD - Last Filed: 12/23/24 01:36> Allergies/adverse reactions: Allergies Allergy/AdvReac Type Severity Reaction Status Date / Time metoclopramide (From Reglan) Allergy Intermediate Muscle Verified 12/22/24 18:17 Spasms hydralazine Allergy Hives Verified 12/22/24 18:17 <Jacob Izaguirre MD - Last Filed: 12/23/24 01:36> Review of Systems Review of Systems: All systems are reviewed and are negative unless stated otherwise in the HPI. <Jacob Izaguirre MD - Last Filed: 12/23/24 01:36> PMFSH Past Medical History Medical History: Medical History Port-A-Cath in place Type 1 diabetes Diabetic gastroparesis Depression <Jacob Izaguirre MD - Last Filed: 12/23/24 01:36> Surgical History Surgical History: Surgical History History of cholecystectomy <Jacob Izaguirre MD - Last Filed: 12/23/24 01:36> Family History Family History: Family History Other Family history of cardiovascular disease <Jacob Izaguirre MD - Last Filed: 12/23/24 01:36> Social History Social History: Social History Smoking status: Never smoker Alcohol intake: never Gender identity (if verbalized by the patient): Female <Jacob Izaguirre MD - Last Filed: 12/23/24 01:36> Exam Narrative: General: Alert, awake, afebrile, in no acute distress. HEENT: PERRL, no rhinorrhea, no post nasal drip, oropharynx clear. Neck: Trachea midline, no JVD, no lymphadenopathy. Cardiovascular: Regular rate and rhythm, no murmurs, rubs or gallops, no peripheral edema, hemodialysis catheter to the right upper chest, Port-A-Cath left upper chest. Respiratory: Clear to auscultation bilaterally, no tachypnea, no wheezing, no rhonchi, no rubs, no respiratory distress. Abdomen: Soft, nontender, nondistended, no rebound, no guarding, no peritoneal signs. Musculoskeletal: No joint swelling or deformity, normal muscle tone. Skin: No rashes or petechia, no signs of infection. Psychiatric: Alert and oriented, normal behavior and judgment for situation. Neurological: Alert and oriented to person, place, and time. Follows all commands. No focal deficits, speech is clear and fluent. <Jacob Izaguirre MD - Last Filed: 12/23/24 01:36> Course Vital Signs Vital signs: Vital Signs Pulse Rate 119 H 12/22/24 18:03 Respiratory Rate 18 12/22/24 18:03 Blood Pressure 217/129 H 12/22/24 18:03 Pulse Oximetry 99 12/22/24 18:03 Pulse Rate 113 H 12/22/24 19:17 Respiratory Rate 18 12/22/24 19:17 Blood Pressure 217/129 H 12/22/24 18:03 Pulse Oximetry 99 12/22/24 19:17 <Jacob Izaguirre MD - Last Filed: 12/23/24 01:36> Vital Signs Pulse Rate 119 H 12/22/24 18:03 Respiratory Rate 18 12/22/24 18:03 Blood Pressure 217/129 H 12/22/24 18:03 Pulse Oximetry 99 12/22/24 18:03 Pulse Rate 113 H 12/22/24 19:17 Respiratory Rate 18 12/22/24 19:17 Blood Pressure 217/129 H 12/22/24 18:03 Pulse Oximetry 99 12/22/24 19:17 <Samanta Gasca MD - Last Filed: 12/22/24 22:14> Procedures Other Procedure Procedure 1: Other Procedure: Procedure Note: Ultrasound-guided peripheral venous catheter insertion performed by Dr Samanta Gasca on 12/22/24 at 22:05. An ultrasound-guided peripheral venous catheter is required in order to obtain vascular access in this patient. Prep pad is used to sterilize the area and a 20 gauge catheter was successfully inserted into the Left AC under ultrasound visualization. The catheter flushes and draws back without difficulty or signs of extravasation. Catheter secured in place with Tegaderm. <Samanta Gasca MD - Last Filed: 12/22/24 22:14> Medical Decision Making MDM Narrative Medical decision making narrative: The patient was evaluated by myself in the emergency department. History is obtained from patient who is an independent historian and physical exam was performed. External medical records were reviewed at this time. IV was established and pertinent tests were ordered. Patient refused IV fluids, she was administered 20 mg of IV labetalol for her hypertension with improvement of her blood pressure to 170 systolic. She was also administered a total dose of 6 mg of IV morphine and 4 mg of IV Zofran with improvement of her symptoms. EKG was obtained which revealed sinus tachycardia rate of 112 beats per minute, no evidence of acute ischemia. EKG was independently interpreted by me and is currently pending official cardiology read. Laboratory results obtained revealing a BUN of 43 and a creatinine of 10.29. Patient did miss her dialysis session on but has a session scheduled this morning. Imaging studies obtained included CXR which was independently interpreted by me revealing no acute cardiopulmonary process, which is pending final radiology interpretation. CT angio chest abdomen pelvis was also obtained at this time and include interpreted by me revealing left lower lobe atelectasis otherwise no acute process. Differential diagnosis considerations include oil well services superintendent, dehydration, electrolyte derangements. Comorbidities impacting this visit include history of chronic abdominal pain. I have evaluated and discussed social determinants of health with the patient that could potentially impact subsequent diagnosis and treatment plans. On repeat assessment of the patient, reevaluation revealed that the patient is doing well and is in no acute distress. Patient symptoms have improved since she arrived to our emergency department. Currently denying any nausea vomiting or abdominal pain, states the morphine has helped with her symptoms. Patient has not had any vomiting episodes in the emergency department during her 6 hour ED stay. Repeat vital signs were all reviewed and noted to be stable. Differential diagnosis and treatment plan were discussed with the patient at bedside. Patient agrees with discussion and after shared medical decision making agrees with discharge. All questions were answered to the patient's satisfaction. Patient will follow up with GI as scheduled for her upcoming appointment next week. Was also instructed that she cannot miss her dialysis session this morning and patient is in agreement. Patient was provided with strict return precautions and instructed to return to the emergency department if any new or worsening symptoms develop. The patient was discharged in stable condition. <Jacob Izaguirre MD - Last Filed: 12/23/24 01:36> Vital Signs Vital Signs: Vital Signs Pulse Rate 119 H 12/22/24 18:03 Respiratory Rate 18 12/22/24 18:03 Blood Pressure 217/129 H 12/22/24 18:03 Pulse Oximetry 99 12/22/24 18:03 Pulse Rate 113 H 12/22/24 19:17 Respiratory Rate 18 12/22/24 19:17 Blood Pressure 217/129 H 12/22/24 18:03 Pulse Oximetry 99 12/22/24 19:17 <Jacob Izaguirre MD - Last Filed: 12/23/24 01:36> Vital Signs Pulse Rate 119 H 12/22/24 18:03 Respiratory Rate 18 12/22/24 18:03 Blood Pressure 217/129 H 12/22/24 18:03 Pulse Oximetry 99 12/22/24 18:03 Pulse Rate 113 H 12/22/24 19:17 Respiratory Rate 18 12/22/24 19:17 Blood Pressure 217/129 H 12/22/24 18:03 Pulse Oximetry 99 12/22/24 19:17 <Samanta Gasca MD - Last Filed: 12/22/24 22:14> Lab Data Result diagrams: 12/22/24 22:13 12/22/24 22:13 <Jacob Izaguirre MD - Last Filed: 12/23/24 01:36> Labs: Lab Results 12/22/24 12/22/24 Range/Units 18:27 22:13 WBC 6.4 (4.5-10.0) K/mm3 RBC 3.95 L (4.2-5.4) M/mm3 Hgb 11.0 L (12.0-15.0) g/dL Hct 35.5 L (37.0-47.0) % MCV 89.9 (80-100) fl MCH 27.8 (26-34) pg MCHC 31.0 L (32-36) g/dl RDW 14.9 H (11.5-14.5) % Plt Count 278 (150-375) k/mm3 MPV 10.9 H (7.4-10.4) fl Immature Gran % (Auto) 0.2 (0-0.5) % Neut % (Auto) 59.5 (45.5-73.1) % Lymph % (Auto) 29.6 (18.3-44.2) % [place] % (Auto) 7.6 (2.6-8.5) % Eos % (Auto) 2.8 (0-4.4) % Baso % (Auto) 0.3 (0.2-1.2) % Lymph # (Auto) 1.88 (0.9-3.2) K/mm3 [place] # (Auto) 0.5 (0.1-0.6) K/mm3 Eos # (Auto) 0.2 (0-0.3) K/mm3 Baso # (Auto) 0.0 (0.0-0.1) K/mm3 Abs Immat Gran (auto) 0.01 (0.00-0.031) K/mm3 Absolute Neuts (auto) 3.8 (1.3-6.7) K/mm3 Absolute Nucleated RBC 0.000 (0.0-0.012) K/mm3 Nucleated RBC % 0.0 (0.0-0.2) % PT 15.2 H (11.1-14.7) Seconds INR 1.2 APTT 29.3 (22.3-36.8) Seconds Sodium 133 L (137-145) mmol/L Potassium 5.4 H (3.4-5.0) mmol/L Chloride 101 (98-107) mmol/L Carbon Dioxide 13 L (22-30) mmol/L Anion Gap 19 H (4-12) mmol/L BUN 43 H D (7-17) mg/dL Creatinine 10.29 H (0.7-1.0) mg/dL Estim Creat Clear Calc 7 ml/min Estimated GFR 4 L (59 - ) Glucose 384 H (65-110) mg/dL POC Capillary Glucose 319 H (65-105) mg/dl Lactic Acid 0.8 (0.7-2.0) mmol/L Calcium 7.8 L (8.4-10.2) mg/dL Magnesium 2.2 (1.6-2.3) mg/dL Total Bilirubin 0.6 (0.2-1.3) mg/dL AST 25 (14-36) U/L ALT 17 (6-35) U/L Alkaline Phosphatase 134 H (38-126) U/L Troponin I 0.015 (0.000-0.034) ng/mL Total Protein 8.1 (6.3-8.2) g/dL Albumin 4.2 (3.5-5.1) g/dL Lipase 149 (23-300) U/L Beta-Hydroxybutyrate/Acetoacetate 4.16 H (0.02-0.27) mmol/L Serum HCG, Qual Negative <Jacob Izaguirre MD - Last Filed: 12/23/24 01:36> Lab Results 12/22/24 12/22/24 Range/Units 18:27 22:13 WBC 6.4 (4.5-10.0) K/mm3 RBC 3.95 L (4.2-5.4) M/mm3 Hgb 11.0 L (12.0-15.0) g/dL Hct 35.5 L (37.0-47.0) % MCV 89.9 (80-100) fl MCH 27.8 (26-34) pg MCHC 31.0 L (32-36) g/dl RDW 14.9 H (11.5-14.5) % Plt Count 278 (150-375) k/mm3 MPV 10.9 H (7.4-10.4) fl Immature Gran % (Auto) 0.2 (0-0.5) % Neut % (Auto) 59.5 (45.5-73.1) % Lymph % (Auto) 29.6 (18.3-44.2) % [place] % (Auto) 7.6 (2.6-8.5) % Eos % (Auto) 2.8 (0-4.4) % Baso % (Auto) 0.3 (0.2-1.2) % Lymph # (Auto) 1.88 (0.9-3.2) K/mm3 [place] # (Auto) 0.5 (0.1-0.6) K/mm3 Eos # (Auto) 0.2 (0-0.3) K/mm3 Baso # (Auto) 0.0 (0.0-0.1) K/mm3 Abs Immat Gran (auto) 0.01 (0.00-0.031) K/mm3 Absolute Neuts (auto) 3.8 (1.3-6.7) K/mm3 Absolute Nucleated RBC 0.000 (0.0-0.012) K/mm3 Nucleated RBC % 0.0 (0.0-0.2) % PT 15.2 H (11.1-14.7) Seconds INR 1.2 APTT 29.3 (22.3-36.8) Seconds Sodium 133 L (137-145) mmol/L Potassium 5.4 H (3.4-5.0) mmol/L Chloride 101 (98-107) mmol/L Carbon Dioxide 13 L (22-30) mmol/L Anion Gap 19 H (4-12) mmol/L BUN 43 H D (7-17) mg/dL Creatinine 10.29 H (0.7-1.0) mg/dL Estim Creat Clear Calc 7 ml/min Estimated GFR 4 L (59 - ) Glucose 384 H (65-110) mg/dL POC Capillary Glucose 319 H (65-105) mg/dl Lactic Acid 0.8 (0.7-2.0) mmol/L Calcium 7.8 L (8.4-10.2) mg/dL Magnesium 2.2 (1.6-2.3) mg/dL Total Bilirubin 0.6 (0.2-1.3) mg/dL AST 25 (14-36) U/L ALT 17 (6-35) U/L Alkaline Phosphatase 134 H (38-126) U/L Troponin I 0.015 (0.000-0.034) ng/mL Total Protein 8.1 (6.3-8.2) g/dL Albumin 4.2 (3.5-5.1) g/dL Lipase 149 (23-300) U/L Beta-Hydroxybutyrate/Acetoacetate 4.16 H (0.02-0.27) mmol/L Serum HCG, Qual Negative <Samanta Gasca MD - Last Filed: 12/22/24 22:14> Discharge Plan Discharge Clinical Impression: Chronic abdominal pain <Jacob Izaguirre MD - Last Filed: 12/23/24 01:36> Patient Disposition: Home <Jacob Izaguirre MD - Last Filed: 12/23/24 01:36> Condition: Improved <Jacob Izaguirre MD - Last Filed: 12/23/24 01:36> Instructions: Antibiotic Form, Abdominal Pain (ED) <Jacob Izaguirre MD - Last Filed: 12/23/24 01:36> Additional Instructions: Please follow-up with year oil well services superintendent as scheduled for upcoming appointment next week regarding chronic abdominal pain. Return to the ED if any new or worsening symptoms develop. <Jacob Izaguirre MD - Last Filed: 12/23/24 01:36> Patient Language: Indian <Jacob Izaguirre MD - Last Filed: 12/23/24 01:36> Prescriptions: No Action insulin glargine [Lantus Solostar U-100 Insulin] 100 unit/mL (3 mL) insulin pen 27 unit SUBCUT HS fluconazole 150 mg tablet promethazine 25 mg tablet 25 mg PRN (Reason: Nausea And Vomiting) losartan 25 mg tablet hydroxyzine HCl 25 mg tablet diazepam 10 mg tablet PRN (Reason: Nausea And Vomiting) insulin lispro 100 unit/mL insulin pen SUBCUT ondansetron 4 mg tablet,disintegrating 4 mg PO Q4H PRN (Reason: Nausea And Vomiting) Rx Instructions: 1st dose 1-2 hr before radiation clonazepam 0.5 mg tablet 0.5 mg PO BID Qty: 14 0RF promethazine 25 mg suppository 25 mg RECTAL Q6H PRN (Reason: nausea and vomiting) Qty: 12 0RF <Jacob Izaguirre MD - Last Filed: 12/23/24 01:36> Follow-up/Referrals: PHYSICIAN NOT ON STAFF,NONSTAFF [Non-Staff] - 3 Days <Jacob Izaguirre MD - Last Filed: 12/23/24 01:36> Time of Disposition: 01:31 <Jacob Izaguirre MD - Last Filed: 12/23/24 01:36> 01:31 <Samanta Gasca MD - Last Filed: 12/22/24 22:14>
[2024-12-22] MEDS: MORPHINE SULFATE (*CRX) 2 MG/ML INJ IV PUSH ×2 (20:15→22:22)
--- NOTE | 2024-12-22 20:15 | PC.NURSE ---
This RN called to pt's room to assess port that was just placed by KADY Townsend. Pt states that it was last accessed approx 1 week ago, that it was a little sluggish to flush at that time, but with positive blood return. At this time, unable to obtain blood and port is sluggish. Discussed options with pt and my hesitation to use port as is. Pt agreeable to having port replaced by myself. Port replaced under sterile conditions. Still unable to obtain blood and port remains sluggish. Pt also reports that she missed her dialysis d/t a dr wasserman. States that she is hesitant to take the fluids ordered by ERP d/t missing dialysis. Discussed with provider who cancelled fluids for now. Provider requesting straight stick for blood at this time. Pt states that she is just really wanting her medication first.
[2024-12-22] MEDS: ONDANSETRON INJ 4 MG/2 ML VIAL IV PUSH (20:17)
--- NOTE | 2024-12-22 21:15 | PC.NURSE ---
Unsuccessful IV attempt x 1 by this RN. Pt has already be stuck x 4 for IV/labs by two other staff members. Discussed with Dr Gasca the necessity for possible US IV.
[2024-12-22 22:19] LABS: Hematocrit 35.5 % (37.0-47.0); Hemoglobin 11.0 g/dL (12.0-15.0); Immature Granulocyte Percent A 0.2 % (0-0.5); Lymphocytes Absolute Auto 1.88 K/mm3 (0.9-3.2); Mean Corpuscular HGB Conc 31.0 g/dl (32-36); Mean Corpuscular Hemoglobin 27.8 pg (26-34); Mean Corpuscular Volume 89.9 fl (80-100); Nucleated Red Blood Cells Absolute Auto 0.000 K/mm3 (0.0-0.012); Nucleated Red Blood Cells Perc 0.0 % (0.0-0.2); Platelet Count Result 278 k/mm3 (150-375); Red Blood Count 3.95 M/mm3 (4.2-5.4); White Blood Count 6.4 K/mm3 (4.5-10.0)
[2024-12-22 22:27] LABS: SPREG INTERNAL CONTROL Positive; Serum Qual hCG Negative
[2024-12-22 22:30] LABS: INR 1.2; Prothrombin Time 15.2 Seconds (11.1-14.7)
[2024-12-22 22:31] LABS: Partial Thromboplastin Time 29.3 Seconds (22.3-36.8)
[2024-12-22 22:34] LABS: Alanine Aminotransferase 17 U/L (6-35); Albumin Level 4.2 g/dL (3.5-5.1); Alkaline Phosphatase 134 U/L (38-126); Anion Gap 19 mmol/L (4-12); Aspartate Amino Transferase 25 U/L (14-36); Bilirubin,Total 0.6 mg/dL (0.2-1.3); Blood Urea Nitrogen 43 mg/dL (7-17); Calcium 7.8 mg/dL (8.4-10.2); Carbon Dioxide 13 mmol/L (22-30); Chloride 101 mmol/L (98-107); Estimated CRCL calculation 7 ml/min; Estimated Glomerular Filt Rate 4; Glucose 384 mg/dL (65-110); Lipase 149 U/L (23-300); Magnesium 2.2 mg/dL (1.6-2.3); Potassium 5.4 mmol/L (3.4-5.0); Sodium 133 mmol/L (137-145); Total Protein 8.1 g/dL (6.3-8.2)
[2024-12-22 22:38] LABS: Beta-Hydroxybutyrate/Acetoacetate 4.16 mmol/L (0.02-0.27)
[2024-12-22 22:45] LABS: Troponin I 0.015 ng/mL (0.000-0.034)
--- NOTE | 2024-12-23 00:52 | PC.NURSE ---
Phlebotomy notified for repeat troponin.
[2024-12-23] MEDS: MORPHINE SULFATE (*CRX) 2 MG/ML INJ IV PUSH (01:16)
== END 2024-12-23 02:09 | disposition home or self-care (01) ==
PROVIDERS: Student in an Organized Health Care Education/Training Program; Emergency Provider Emergency Medicine; PCP Family Medicine
DX: R10.9 Unspecified abdominal pain (principal); G89.29 Other chronic pain; E10.22 Type 1 diabetes mellitus with diabetic chronic kidney disease; N18.6 End stage renal disease; Z99.2 Dependence on renal dialysis; F32.A Depression, unspecified; Z90.49 Acquired absence of other specified parts of digestive tract; Z79.4 Long term (current) use of insulin; Z79.899 Other long term (current) drug therapy
CPT/HCPCS: 36415; 71046; 71275; 74177; 80053; 82010; 82948; 83605; 83690; 83735; 84484; 84703; 85025; 85610; 85730; 93005; 96361; 96374; 96375; 96376; 99284; J1642; J2270; J2405; Q9967

== ENCOUNTER 2025-01-01 11:22 | Inpatient (IN) | payer MEDICARE, MEDICAID, SELFPAY ==
[2025-01-01] VITALS (9 sets, daily range): BP systolic 164–197; BP diastolic 95–115; PULSE 96–109; RESP 14–24; TEMP 36.8–37.1; O2SAT 96–100; BMI 24.5
--- NOTE | ~2025-01-01 | CT_ITS ---
CTA CHEST ABDOMEN PELVIS CLINICAL HISTORY: chest and abd pain . COMPARISON: X-rays the same day CTA chest and CT abdomen and pelvis 12/22/2024 TECHNIQUE: Helical CT performed from thoracic inlet to symphysis pubis 100 mL Omnipaque 350 Coronal, sagittal reformats. Multiplanar MIPS CT images acquired with automatic exposure control for dose reduction DLP: 325 mGy-cm FINDINGS: CHEST- Thoracic Aorta: No dissection. No aneurysm. Pulmonary arteries: Normal caliber. No PE. Lungs/Pleura: Left lower lobe airspace disease. Heart: Unremarkable. Tracheobronchial tree: Patent. Nodes: Small mediastinal nodes. Bones: No acute bony abnormality. Soft tissues: Patulous esophagus. ABDOMEN/PELVIS- CTA Abdominal aorta: No aneurysm or dissection. Common iliac arteries: Patent. External iliac arteries: Patent. Hypogastric arteries: Patent. CFAs: Patent. Atherosclerotic disease. Proximal visualized SFAs and profundas: Patent. Atherosclerotic disease. Celiac: Patent. SMA: Patent. EDILSON: Patent. Renal arteries: Patent. NON-CTA Liver: Enlarged. Gallbladder: Removed. Spleen: Unremarkable. Pancreas: Unremarkable. Adrenal glands: Unremarkable. Kidneys: Right kidney- No hydronephrosis. Small stones. Right lower lobe cortical mass suspected. Left kidney- No hydronephrosis. Small stones. Distal esophagus/stomach: Unremarkable. Small bowel loops: Normal caliber and wall thickness. Colon: Normal caliber and wall thickness. Normal RLQ appendix. Nodes: Small retroperitoneal lymph nodes. Small inguinal nodes. Peritoneum: Trace ascites. No free air. Urinary bladder: Unremarkable. Uterus: Unremarkable. Adnexa: No masses. Bones: No acute bony abnormality. Soft tissues: Unremarkable. Case discussed via telephone by myself with Dr. Babin at 9:37 AM EST on 01/02/2025. IMPRESSION: CHEST- 1. Left lower lobe atelectasis, aspiration, and/or airspace disease. Improving but persists. 2. Patulous esophagus with wall thickening. Consider endoscopy. 3. Small mediastinal nodes persist. 4. No other acute abnormality. ABDOMEN/PELVIS- 1. Right kidney mass not excluded. Recommend ultrasound and/or MRI. 2. Small scattered nonspecific lymph nodes. Recommend surveillance. 3. No other acute abnormality. Reviewed, dictated and finalized at location R.
--- NOTE | ~2025-01-01 | XR_ITS ---
EXAMINATION: XR abdomen/kub 1V DATE: 01/03/2025 14:20 INDICATION: Nausea and vomiting. Assess for fecal impaction. TECHNIQUE: A supine view of the abdomen on 2 radiographs was obtained. COMPARISON: CT dated 01/01/2025 FINDINGS: Interval advancement of some residual oral contrast material in the colon, now seen in the descending and sigmoid colon. No dilated loops of gas-filled bowel to suggest obstruction. Cholecystectomy clips in right upper quadrant. A pair of stimulator leads extend from a power supply projecting over the left lower quadrant with lead tips projecting over the distal gastric body. IMPRESSION: 1. There is small amount of residual oral contrast material in the distal colon. No dilated loops of gas-filled bowel to suggest obstruction. Reviewed, dictated and finalized at location A. IMPRESSION: 1. There is small amount of residual oral contrast material in the distal colon . No dilated loops of gas-filled bowel to suggest obstruction.
--- NOTE | ~2025-01-01 | XR_ITS ---
EXAMINATION: XR chest 2V, 01/01/2025 12:15 CDT HISTORY: NAUSEA/SOB COMPARISON: No comparisons available. Technique: 2 views obtained. Findings: The lungs are clear, no effusion. No pneumothorax. Heart is normal size. Mediastinal and hilar contours are within normal limits. Bony thorax no acute abnormality. Right central line SVC, left central line in the SVC Impression: No acute cardiopulmonary abnormality. Reviewed, dictated and finalized at location A. Impression: No acute cardiopulmonary abnormality.
--- NOTE | ~2025-01-01 | US_ITS ---
EXAMINATION: US renal BI DATE: 01/04/2025 17:43 INDICATION: Renal mass TECHNIQUE: Multiple ultrasound grayscale images of the kidneys were obtained. COMPARISON: CT dated 01/01/2025 FINDINGS: The right kidney measures 8.7 x 3.9 x 5.3 cm. The left kidney measures 9.3 x 4.9 x 5.1 cm. Kidneys demonstrate diffuse increased cortical echogenicity consistent with medical renal disease. 1.6 cm anechoic cyst at the lower pole the right kidney which appears to correspond in size and location to the lesion on prior CT suggesting this represents a proteinaceous/hemorrhagic cyst.. There is an additional 6 mm anechoic cyst at the lower pole the left kidney. There is no hydronephrosis in either kidney. No stones identified. The bladder is normal. IMPRESSION: 1. Bilateral renal cysts including a 1.6 cm cyst at the lower pole the right kidney which appear to correspond in size and location to the soft tissue density lesion on prior CT consistent with a proteinaceous/hemorrhagic cyst. 2. Bilateral diffuse increased renal cortical echogenicity consistent with medical renal disease. Reviewed, dictated and finalized at location A. IMPRESSION: 1. Bilateral renal cysts including a 1.6 cm cyst at the lower pole the right ki dney which appear to correspond in size and location to the soft tissue density lesion on prior CT consistent with a proteinaceous/hemorrhagic cyst. 2. Bilateral diffuse increased renal cortical echogenicity consistent with medi amy renal disease.
--- NOTE | 2025-01-01 11:33 | ECG_ITS ---
Test Date: 2025-01-01 11:38:12 Measurements Intervals [place] Rate: 102 P: 32 RI: 145 QRS: 3 QRSD: 87 T: 47 QT: 373 QTc: 488 Interpretive Statements NORMAL SINUS RHYTHM PROLONGED QT INTERVAL ARTIFACT ABNORMAL ECG Electronically Signed On 01-01-2025 12:53:20 CDT by Odilon Gilman M.D.
--- NOTE | 2025-01-01 12:11 | PC.NURSE ---
Pt. vomiting in room. Pt. asked for time alone before accessing port.
[2025-01-01] MEDS: ONDANSETRON INJ 4 MG/2 ML VIAL IM (12:18)
--- NOTE | 2025-01-01 12:23 | PC.NURSE ---
Pt. to x-ray.
[2025-01-01 13:17] LABS: Hematocrit 35.4 % (37.0-47.0); Hemoglobin 11.1 g/dL (12.0-15.0); Immature Granulocyte Percent A 0.5 % (0-0.5); Lymphocytes Absolute Auto 1.11 K/mm3 (0.9-3.2); Mean Corpuscular HGB Conc 31.4 g/dl (32-36); Mean Corpuscular Hemoglobin 27.5 pg (26-34); Mean Corpuscular Volume 87.6 fl (80-100); Nucleated Red Blood Cells Absolute Auto 0.000 K/mm3 (0.0-0.012); Nucleated Red Blood Cells Perc 0.0 % (0.0-0.2); Platelet Count Result 195 k/mm3 (150-375); Red Blood Count 4.04 M/mm3 (4.2-5.4); White Blood Count 5.6 K/mm3 (4.5-10.0)
[2025-01-01] MEDS: FAMOTIDINE 20 MG/2 ML VIAL IV PUSH (13:19)
[2025-01-01] MEDS: PROCHLORPERAZINE EDISYLATE 10 MG/2 ML VIAL IV PUSH (13:19)
[2025-01-01] MEDS: MORPHINE SULFATE (*CRX) 4 MG/ML INJ IV PUSH ×2 (13:19→15:52)
[2025-01-01 13:33] LABS: Alanine Aminotransferase 22 U/L (6-35); Albumin Level 4.0 g/dL (3.5-5.1); Alkaline Phosphatase 179 U/L (38-126); Anion Gap 18 mmol/L (4-12); Aspartate Amino Transferase 22 U/L (14-36); Bilirubin,Total 0.5 mg/dL (0.2-1.3); Blood Urea Nitrogen 24 mg/dL (7-17); Calcium 7.2 mg/dL (8.4-10.2); Carbon Dioxide 17 mmol/L (22-30); Chloride 97 mmol/L (98-107); Estimated CRCL calculation 9 ml/min; Estimated Glomerular Filt Rate 6; Glucose 433 mg/dL (65-110); Lipase 65 U/L (23-300); Potassium 4.5 mmol/L (3.4-5.0); Sodium 132 mmol/L (137-145); Total Protein 7.6 g/dL (6.3-8.2)
--- OUTSIDE RECORDS SUMMARY | 2025-01-01 13:38 | XMS_ITS | Patient Health Record ---
Author Organization [facility] Address [address] [place] [address] Care Team Providers Care Axminster Weaver Name Role Phone Daxa Hill Unavailable [phone] Reason For Referral No Information Plan Of Treatment No Information
--- OUTSIDE RECORDS SUMMARY | 2025-01-01 13:38 | XMS_ITS ---
Author Organization [facility] Address [address] [place] [address] Phone Care Team Providers Care Control Operator Flow Coat Name Role Phone Eun Camacho Primary Care Provider Lindsey Chronic Condition Monitoring Status:Enrolled (Active) Start date:03/08/2024 Enrollment date:03/08/2024 Related social drivers of health:Intimate Partner Violence, Social Connections, Financial Resource Strain, Depression, Stress, Physical Activity, Food Insecurity, Transportation Needs, Housing Stability, Utilities Continued Care and Services Coordination
--- OUTSIDE RECORDS SUMMARY | 2025-01-01 13:38 | XMS_ITS | Encounter Summary ---
Author Organization [facility] Facility Care Team Providers Care Commodity Analyst Name Role Phone Unknown, Notinfile Primary Care Provider Unavail able Lay Villalta MD Primary Care Provider [phone] Tremayne Kebede MD Unavailable [phone] Georgia Mcbride AGRICULTURAL INSPECTOR Unavailable [phone] Miscellaneous, Not In File Unavailable Unava ilable Eun Camacho Primary Care Provider + Cony Pemberton BALLING HEAD TENDER Unavailable [phone] Antonette Vernon RN Unavailable [phone] Andrei Chaves MD PhD Unavailable [phone] Olivia Phelps MD Unavailable [phone] Edgardo Aldridge MD Primary Care Provider [phone] Odilon Tellez MD Unavailable [phone] Miscellaneous, Not In File Unavailable Unava ilable Ct Boggs BALLING HEAD TENDER Unavailable [phone] Odilon Tellez MD Unavailable [phone] Tracey Felix RN Unavailable [phone] Ayaka Thomas MD Unavailable [phone] Yumi Jones NP Unavailable [phone] TosinRuthy wilder BALLING HEAD TENDER Unavailable Unavaila Feli Dominguez RN Unavailable [phone] Mendel Bowling RN Unavailable [phone] Leslie Baptiste [facility] Unavailable Mendel Bowling RN Unavailable [phone] Odilon Tellez MD Unavailable [phone] Mavis Barahona RN Unavailable [phone] Encounter Details Date Type Department Care Team (Latest Contact Info) Description 04/07/2016 Orders Only [facility] CLINCONV ProviderSotero MD [address] [place] [address] Social History Tobacco Use Types Packs/Day Years Used Date Smoking Tobacco: Never Comments Unknown Sex and Gender Information Value Date Recorded Sex Assigned at Not on file Legal Sex Female 9:16 AM EXPELLER OPERATOR Gender Identity Not on file Sexual Orientation Not on file documented as of this encounter Plan of Treatment Not on file documented as of this encounter Procedures Procedure Name Priority Date/Time Associated Diagnosis Comments CARDIOLOGY REPORT 04/07/2016 12: 00 AM EXPELLER OPERATOR documented in this encounter Results * CARDIOLOGY REPORT (04/07/2016 12:00 AM EXPELLER OPERATOR) Anatomical Region Laterality Modality Other Narrative 04/07/2016 12:00 AM EXPELLER OPERATOR Ordered by an unspecified provider. Historical Provider [facility]O SENIOR Final Result documented in this encounter Visit Diagnoses Not on filedocumented in this encounter Additional Health Concerns Infection Onset Date Last Indicated Resolved Time COVID: Suspected 12/21/2019 12/21/2019 12/22/2019 6:21 AM CDT Respiratory Infection (JASEN), contact + droplet Comment:Automatically added due to negative COVID-19 result. 12/22/2019 12/22/2019 01/05/2020 3:0 5 AM CDT COVID: Suspected 12/23/2019 12/24/2019 12/24/2019 11:10 PM CDT COVID19 02/02/2020 02/02/2020 02/19/2020 3:05 AM EXPELLER OPERATOR COVID: Recovered Comment:Added based on recent COVID infection. 02/19/2020 03/15/2020 06/18/2020 3:[address] COVID19 Comment:02/0504/22/2020 04/21/2020 07/15/2021 12:04 PM CDT COVID: Recovered 07/14/2021 07/14/2021 11/11/2021 3:05 AM CDT COVID: Suspected 07/28/2021 07/28/2021 07/28/2021 5:46 PM CDT COVID: Suspected 02/05/2022 02/05/2022 02/05/2022 8:29 AM CDT COVID: Suspected 02/05/2022 02/05/2022 02/05/2022 5:17 PM CDT Tuberculosis (rule out) Comment:02/16/2023 IP Review: 12/04 BAL negative. Zuleyka Morrison RN 12/02/2022 12/02/202202/16 1:05 PM CDT COVID: Suspected 12/02/2022 12/03/2022 12/03/2022 2:08 AM CDT COVID: Suspected 06/15/2023 06/15/2023 06/15/2023 5:53 PM EXPELLER OPERATOR C. difficile suspected 06/24/2023 06/24/202306/26 6:03 AM CDT COVID: Suspected 06/27/2023 06/27/2023 06/27/2023 7:07 PM CDT COVID: Suspected 07/10/2023 07/10/2023 07/10/2023 6:50 AM CDT COVID: Suspected 07/13/2023 07/13/2023 07/13/2023 9:45 PM CDT MRSA Comment:MRSA Isolation Assisted 06/21/24 10/23/2023 02/09/2024 06/21/2024 6:[address] C. 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 Source: [facility]. 08/20/2024 Carbapenemase, Unspecified Comment:Added from external infection. Source: [facility]. Kleb pneumo KPC 09/23/2024 10/31/2024 3:07 PM C DT CP-ENGRAVER COPPERPLATE Comment:Added from external infection. Source: [facility]. Kleb pneumo KPC 10/31/2024 10/31/2024 documented as of this encounter Care Teams Commodity Analyst Relationship Specialty Start Date End Date Unknown, Notinfile PCP - General 12/28/16 08/23/18 Lay Villalta MD PCP - General Family Medicine 08/24/18 07/17/21 Eun Camacho PA PCP - General Family Medicine 07/18/21 03/08/23 Edgardo Aldridge MD [address] [facility] [address] 4 [place] [address] PCP - General Family Medicine 04/02/23 Tremayne Kebede MD Consulting Physician Gastroenterology 02/05/20 3 Georgia Mcbride LPN [address] [facility] [address] [place] [address] ACO Care Cannery Tender Engineer 11/28/20 12/19/20 Miscellaneous, Not In File 07/17/21 03/16/23 Cony Pemberton, BALLING HEAD TENDER [address] [facility] ([facility] Mailstop [phone] [place] [address] SHOP Outpatient Molding Supervisor 12/07/22 12/07/22 Antonette Vernon, KADY [address] [place] [address] SHOP Outpatient Molding Supervisor 12/08/22 01/05/23 Andrei Chaves MD PhD [address] [facility] [address] [place] [address] Referring Physician General Surgery 03/17/23 Olivia Phelps MD [address] [facility] [address] [place], [place] [address] Consulting Physician Nephrology 03/17/23 Odilon Tellez MD [address] [facility] [address] 4 [place], [place] [address] Consulting Physician Nephrology 05/01/23 12/04/24 Miscellaneous, Not In File 07/08/23 01/24/24 Ct Boggs, [facility] [address] [facility] ([facility] Mailstop [phone] [place] [address] [facility] Outpatient Molding Supervisor 07/09/23 08/05/23 Odilon Tellez MD [address] [facility] [address] [place] [address] Referring Physician Nephrology 11/12/23 Tracey Felix, KADY [address] [place] [address] Continuous Process Machine Operator 11/12/23 11/17/23 Ayaka Thomas MD [address] [place] [address] Fellow Internal Medicine 12/17/23 Yumi Jones NP [address] [facility] [address] [place] [address] Nurse Practitioner Hospice and Palliative Medicine 08/16/23 Ruthy Leahy LCSW Coke Worker 12/31/23 02/22/24 Feli Boggs RN [address] [place] [address] [address] [place] [address] Client Specialist 12/31/23 01/02/24 Mendel Bowling, KADY [address] [place] [address] [address] [place] [address] Client Specialist 01/03/24 03/23/24 Leslie Baptiste [address] [place] [address] Pharmacist Pharmacy 01/13/24 02/03/24 Mendel Bowling, KADY [address] [place] [address] [address] [place] [address] Client Specialist 11/07/24 Odilon Tellez MD [address] [facility] [address] [place] [address] Consulting Physician Nephrology 12/05/24 Mavis Barahona, RN [address] [facility] [address] [place] [address] Continuous Process Machine Operator 12/20/24 documented as of this encounter
--- OUTSIDE RECORDS SUMMARY | 2025-01-01 13:38 | XMS_ITS | Encounter Summary ---
Author Organization [facility] Facility Care Team Providers Care Putty Glazer Name Role Phone Unknown, Notinfile Primary Care Provider Unavail able Lay Villalta MD Primary Care Provider [phone] Tremayne Kebede MD Unavailable [phone] Georgia Mcbride CIGARETTE MAKING MACHINE OPERATOR Unavailable [phone] Miscellaneous, Not In File Unavailable Unava ilable Eun Camacho Primary Care Provider + Cony Pemberton SPANNER OPERATOR Unavailable [phone] Antonette Vernon RN Unavailable [phone] Andrei Chaves MD PhD Unavailable [phone] Olivia Phelps MD Unavailable [phone] Edgardo Aldridge MD Primary Care Provider [phone] Odilon Tellez MD Unavailable [phone] Miscellaneous, Not In File Unavailable Unava ilable Ct Boggs SPANNER OPERATOR Unavailable [phone] Odilon Tellez MD Unavailable [phone] Tracey Felix RN Unavailable [phone] Ayaka Thomas MD Unavailable [phone] Yumi Jones NP Unavailable Ruthy Leahy SPANNER OPERATOR Unavailable Unavaila Feli Dominguez RN Unavailable [phone] Mendel Bowling RN Unavailable [phone] Leslie Baptiste [facility] Unavailable Mendel Bowling RN Unavailable [phone] Odilon Tellez MD Unavailable [phone] Mavis Barahona RN Unavailable [phone] Encounter Details Date Type Department Care Team (Latest Contact Info) Description 09/13/2016 Orders Only [facility] CLINCONV Provider, MD Sotero [address] [place] [address] Social History Tobacco Use Types Packs/Day Years Used Date Smoking Tobacco: Never Comments Unknown Sex and Gender Information Value Date Recorded Sex Assigned at Not on file Legal Sex Female 9:16 AM BI DEVELOPER Gender Identity Not on file Sexual Orientation Not on file documented as of this encounter Plan of Treatment Not on file documented as of this encounter Procedures Procedure Name Priority Date/Time Associated Diagnosis Comments SCAN - LABS 09/22/2016 12:00 AM CDT documented in this encounter Results * SCAN - LABS (09/22/2016 12:00 AM CDT) Narrative 09/22/2016 12:00 AM CDT Ordered by an unspecified provider. Historical Provider Final Res ult documented in this encounter Visit Diagnoses Not [...] CDT COVID19 02/02/2020 02/02/2020 02/19/2020 3:05 AM BI DEVELOPER COVID: Recovered Comment:Added based on recent COVID [...] COVID: Suspected 06/15/2023 06/15/2023 06/15/2023 5:53 PM BI DEVELOPER C. difficile suspected 06/24/2023 06/24/202306/26 6:03 AM CDT COVID: Suspected 06/27/2023 06/27/2023 06/27/2023 7:07 PM CDT COVID: Suspected 07/10/2023 07/10/2023 07/10/2023 6:50 AM CDT COVID: Suspected 07/13/2023 07/13/2023 07/13/2023 9:45 PM CDT MRSA Comment:MRSA Isolation Long-Term 06/21/24 10/23/2023 02/09/2024 06/21/2024 6:[address] C. 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 Source: [facility]. 08/20/2024 Carbapenemase, Unspecified Comment:Added from external infection. Source: [facility]. Kleb pneumo KPC 09/23/2024 10/31/2024 3:07 PM C DT CP-ORTHODONTIST ASSISTANT Comment:Added from external infection. Source: [facility]. Kleb pneumo KPC 10/31/2024 10/31/2024 documented as of this encounter Care Teams Putty Glazer Relationship Specialty Start Date End Date Unknown, Notinfile PCP - General 12/28/16 08/23/18 Lay Villalta MD PCP - General Family Medicine 08/24/18 07/17/21 Eun Camacho PA PCP - General Family Medicine 07/18/21 03/08/23 Edgardo Aldridge MD [address] [facility] [address] [place] [address] PCP - General Family Medicine 04/02/23 Tremayne Kebede MD Consulting Physician Gastroenterology 02/05/20 3 Georgia Mcbride LPN [address] [facility] [place] [facility] [address] [place] [address] ACO Care Flour Broker 11/28/20 12/19/20 Miscellaneous, Not In File 07/17/21 03/16/23 Cony Pemberton, SPANNER OPERATOR [address] [facility] ([facility] Mailstop [phone] [place] [address] SHOP Outpatient Gold Miner 12/07/22 12/07/22 Antonette Vernon, KADY [address] [place] [address] SHOP Outpatient Gold Miner 12/08/22 01/05/23 Andrei Chaves MD PhD [address] [facility] [address] [place] [address] Referring Physician General Surgery 03/17/23 Olivia Phelps MD [address] [place], [place] [address] Consulting Physician Nephrology 03/17/23 Odilon Tellez MD [address] [facility] [address] [place] [address] Consulting Physician Nephrology 05/01/23 12/04/24 Miscellaneous, Not In File 07/08/23 01/24/24 Ct Boggs, [facility] [address] [facility] ([facility]) Mailstop [phone] [place] [address] SHOP Outpatient Gold Miner 07/09/23 08/05/23 Odilon Tellez MD [address] [facility] [address] [place] [address] Referring Physician Nephrology 11/12/23 Tracey Felix, RN [address] [place] [address] Wheel Grinder 11/12/23 11/17/23 Ayaka Thomas MD [address] [place] [address] Fellow Internal Medicine 12/17/23 Yumi Jones NP [address] [facility] [address] [place] [address] Nurse Practitioner Hospice and Palliative Medicine 08/16/23 Ruthy Leahy LCSW Heating And Blending Supervisor 12/31/23 02/22/24 Feli Boggs RN [address] [place] [address] [address] [place] [address] Cowlman 12/31/23 01/02/24 Mendel Bowling, KADY [address] [place] [address] [address] [place] [address] Cowlman 01/03/24 03/23/24 Leslie Baptiste [address] [place] [address] Pharmacist Pharmacy 01/13/24 02/03/24 Mendel Bowling, KADY [address] [place] [address] [address] [place] [address] Cowlman 11/07/24 Odilon Tellez MD [address] [facility] [address] [place] [address] Consulting Physician Nephrology 12/05/24 Mavis Barahona, RN [address] [facility] [address] [place] [address] Wheel Grinder 12/20/24 documented as of this encounter
--- OUTSIDE RECORDS SUMMARY | 2025-01-01 13:38 | XMS_ITS | Encounter Summary ---
Author Organization [facility] Address [address] [place] [address] Care Team Providers Care Special Warfare Operator Name Role Phone Lay Villalta MD Primary Care Provider [phone] Edgardo Aldridge MD Primary Care Provider [phone] Encounter Details Date Type Department Care Team (Late st Contact Info) Description 07/17/2019 Lab Requisition [facility] [address] [place] [address] Unknown, Provider Social History Tobacco Use Types Packs/Day Years Used Date Smoking Tobacco: Never Smokeless Tobacco: Never Alcohol Use Standard Drinks/Week Comments No 0 (1 standard drink = 0.6 oz pur e alcohol) Comments Unknown Sex and Gender Information Value Date Recorded Sex Assigned at Not on file Legal Sex Female 5:44 AM THERMOSTAT MECHANIC Gender Identity Not on file Sexual Orientation Not on file 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 Answer Date of Assessment Author No 06/08/2018 6:53 AM Gilbert Guadalupe RN * Is person blind or have serious difficulty seeing? Answer Date of Assessment Author No 06/08/2018 6:53 AM Gilbert Guadalupe RN * Does person have serious difficulty walking/climbing stairs? Answer Date of Assessment Author No 06/08/2018 6:53 AM Gilbert Guadalupe RN * Does person have difficulty dressing/bathing? Answer Date of Assessment Author No 06/08/2018 6:53 AM Gilbert Guadalupe RN * Does person have difficulty doing errands alone? Answer Date of Assessment Author No 06/08/2018 6:53 AM Gilbert Guadalupe RN documented as of this encounter Mental Status * Does person have difficulty concentrating/remembering/making decisions? Answer Entry Date Author No 06/08/2018 6:53 AM Gilbert Guadalupe RN documented in this encounter Plan of Treatment Not on file documented as of this encounter Procedures Procedure Name Priority Date/Time Associated Diagnosis Comments SARS-COV-2 (COVID-19) IN HOUSE Routine 07/16/2019 3:17 PM CDT documented in this encounter Results * SARS-COV-2 (COVID-19) IN HOUSE (07/16/2019 3:17 PM CDT) COVID-19 PCR Not detected Not detected, Invalid 07/17/2019 11:51 PM CDT [facility] Microbiology SPECIMEN FROM NASOPHARYNGEAL STRUCTURE / Unknown Collection / Unknown 07/16/2019 3:17 PM CDT 07/17/2019 11:09 AM CDT Narrative [facility] - 07/17/2019 11:51 PM CDT This Real Time RT-PCR assay was developed and its performance characteristics determined by [facility]. This test has been authorized by the Food and Drug administration (FDA)under an Emergency Use Authorization (EUA). This test has been validated in accordance with the FDA's guidance document Policy for Diagnostic Testing in Laboratories Certified to perform High Complexity Testing under CLIA prior to Emergency Use Authorization for Coronavirus Disease-2019 during the Public Health Emergency issued on 2019. FDA independent review of this validation is pending. This test is only authorized for the duration of time the declaration that circumstances exist justifying the authorization of emergency use of in vitro diagnostic tests for detection of SARS-CoV-2 virus and/or diagnosis of COVID-19 infection under section 564(b)(1) of the Act, 21 U.S.C 360bbb-3 (b)(1), unless the authorization is terminated or revoked sooner. us Provider Unknown LAB - MICROBIOLOGY ORDERABLES F inal Result [facility] [address] [place] [address], [facility] [[email or web address]] [phone] documented in this encounter Visit Diagnoses Not on filedocumented in this encounter Care Teams Special Warfare Operator Relationship Specialty Start Date End Date Lay Villalta MD [address] [facility] [address] [place] [phone] PCP - General Family Medicine 07/07/15 12/27/23 Edgardo Aldridge MD [address] [facility] [address] [place] [address] PCP - General Family Medicine 12/28/23 documented as of this encounter
--- OUTSIDE RECORDS SUMMARY | 2025-01-01 13:38 | XMS_ITS | Encounter Summary ---
Author Organization [facility] Address [address] [place] [address] Phone Care Team Providers Care Sales Representative Facility Services Name Role Phone Lay Villalta MD Primary Care Provider [phone] Eun Camacho Primary Care Provider [phone] Encounter Details Date Type Department Care Team (Late st Contact Info) Description 07/30/2021 Telephone [facility] Med Surg [address] [phone] Kyleigh Thornton, RN [place] Social History Tobacco Use Types Packs/Day Years Used Date Smoking Tobacco: Never Smokeless Tobacco: Never Alcohol Use Standard Drinks/Week Comments Not Currently 0 (1 standard drink = 0.6 oz pur e alcohol) rarely AUDIT-C Answer Date Recorded Q1: How often do you have a drink containing alc ohol? Never 02/15/2020 Average Number of Drinks Not on file 020 Frequency of Binge Drinking Not on file 01/18 Sexually Active Control Partners Comments Not Currently Comments No Sex and Gender Information Value Date Recorded Sex Assigned at Not on file Legal Sex Female 8:47 PM CDT Gender Identity Not on file Sexual Orientation Not on file COVID-19 Exposure Response Date Recorded In the last 10 days, have yo u been in contact with someone who was confirmed or suspected to have Coronavirus/COVID-19? No / Unsure 07/10/2021 6:28 AM CDT documented as of this encounter Plan of Treatment Not on file documented as of this encounter Visit Diagnoses Not on filedocumented in this encounter Care Teams Sales Representative Facility Services Relationship Specialty Start Date End Date Lay Villalta MD [address] [facility] [address] [place] [address] PCP - General Family Medicine 07/10/21 06/27/22 Eun Camacho PAC [address] [facility] [address] [place] [address] PCP - General Family Medicine 06/28/22 documented as of this encounter
--- OUTSIDE RECORDS SUMMARY | 2025-01-01 13:39 | XMS_ITS ---
Author Organization [facility] Address [address] [place] [address] Care Team Providers Care C++ Professor Name Role Phone Andrei Chaves MD PhD Unavailable [phone] Olivia Phelps MD Unavailable [phone] Edgardo Aldridge MD Primary Care Provider Odilon Tellez MD Unavailable Ayaka Thomas MD Unavailable Yumi Jones NP Unavailable [phone] Mendel Bowling RN Unavailable [phone] Odilon Tellez MD Unavailable [phone] Mavis Barahona RN Unavailable [phone] Dialysis Access Sites Type Status Location Placement Date Removal Da te Hemodialysis Cath Double 11/03/23 Right Internal Jugular Active Right Neck (side) - Anterior 11/03/2023 Hemodialysis Cath Triple 10/27/23 Right Femoral Inactive Right Thigh - Anterior 10/27/2023 Hemodialysis Cath Double 09/17/22 Left Subclavian Inactive Left Breast - Upper 09/17/202201/2024 Hemodialysis AV Access 09/17/22 Subclavian Inactive Left Breast - Upper 09/17/2022 11/22/19 Procedures Procedure Name Priority Date/Time Associated Diagnosis Comments POCT GLUCOSE DEVICE Routine 12/26/2024 9:47 AM CDT COLONOSCOPY 12/26/2024 9:16 AM CDT ND AN PROCEDURE PLACEHOLDER Routine 12/2024 9:02 AM CDT ND AN ELECTIVE ENDOTRACHEAL AIRWAY Routine 12/26/2024 9:02 AM CDT SURGICAL PATHOLOGY Routine 12/26/2024 9:00 AM CDT Perirectal fistula Gastroparesis EGD 12/26/2024 8:55 AM CDT ESOPHAGOGASTRODUODENOSCOPY BIOPSY 12/26/2024 8:47 AM CDT Perirectal fistula Gastroparesis Special Needs POTASSIUM LEVEL 3RD FLOOR PRIOR TO COMING UP COLON BIOPSY 12/26/2024 8:47 AM CDT Perirectal fistula Gastroparesis Special Needs POTASSIUM LEVEL 3RD FLOOR PRIOR TO COMING UP POCT HCG, URINE Routine 12/26/2024 8:43 AM CDT POCT GLUCOSE DEVICE Routine 12/26/2024 8:41 AM CDT POCT GLUCOSE DEVICE Routine 12/26/2024 7:53 AM CDT EGFR Routine 12/26/2024 7:03 AM CDT Dialysis patient Pre-procedure lab exam COMPREHENSIVE METABOLIC PANEL Routine 7:03 AM CDT Dialysis patient Pre-procedure lab exam CT ENTEROGRAPHY W CONTRAST Schedule Routine, Read Routine (OP Routine) 12/25/2024 1:21 PM CDT Perirectal fistula CT ANKLE RIGHT WO CONTRAST Schedule Routine, Read Routine (OP Routine) 12/22/2024 12:45 PM CDT Closed displaced trimalleolar fracture of right ankle, initial encounter Acute right ankle pain Flat foot (pes planus) (acquired), right foot CT FOOT RIGHT WO CONTRAST Schedule Routine, Read Routine (OP Routine) 12/22/2024 12:45 PM CDT Lisfranc dislocation, right, initial encounter Acute pain of right foot Flat foot (pes planus) (acquired), right foot SCAN - RADIOLOGY/IMAGING 12/22/2024 XR ANKLE RIGHT 3 OR MORE VIEWS Schedule Routine, Read Routine (OP Routine) 12/07/2024 1:00 PM CDT Right ankle pain, unspecified chronicity XR FOOT RIGHT 3 OR MORE VIEWS Schedule Routine, Read Routine (OP Routine) 12/07/2024 1:00 PM CDT Right ankle pain, unspecified chronicity XR ANKLE RIGHT 3 OR MORE VIEWS Schedule Routine, Read Routine (OP Routine) 11/21/2024 5:34 PM CDT Crushing injury of right foot and ankle, subsequent encounter XR TRANSFER OF OUTSIDE FILMS Routine 12:05 AM CDT XR TRANSFER OF OUTSIDE FILMS Routine 12:00 AM CDT SCAN - RADIOLOGY/IMAGING 11/16/2024 CT CHEST WO CONTRAST Schedule Routine, Read Routine (OP Routine) 11/11/2024 POCT GLUCOSE DEVICE Routine 11/05/2024 7:20 AM CDT POCT GLUCOSE DEVICE Routine 11/05/2024 2:37 AM CDT EGFR Routine 11/04/2024 9:18 PM CDT DIFFERENTIAL AUTO Routine 11/04/2024 9:18 PM CDT CBC WITH AUTO DIFFERENTIAL Routine 11/04 9:18 PM CDT BASIC METABOLIC PANEL Routine 11/04/2024 9:18 PM CDT POCT GLUCOSE DEVICE Routine 11/04/2024 9:16 PM CDT POCT GLUCOSE DEVICE Routine 11/04/2024 6:50 PM CDT POCT GLUCOSE DEVICE Routine 11/04/2024 3:55 PM CDT POCT GLUCOSE DEVICE Routine 11/04/2024 12:51 PM CDT POCT GLUCOSE DEVICE Routine 11/04/2024 7:16 AM CDT POCT GLUCOSE DEVICE Routine 11/04/2024 2:03 AM CDT EGFR Routine 11/03/2024 10:59 PM CDT DIFFERENTIAL AUTO Routine 11/03/2024 10:59 PM CDT CBC WITH AUTO DIFFERENTIAL Routine 11/03 10:59 PM CDT BASIC METABOLIC PANEL Routine 11/03/2024 10:59 PM CDT POCT GLUCOSE DEVICE Routine 11/03/2024 8:37 PM CDT HEMODIALYSIS Routine 11/03/2024 6:43 PM CDT POCT GLUCOSE DEVICE Routine 11/03/2024 4:17 PM CDT POCT GLUCOSE DEVICE Routine 11/03/2024 11:20 AM CDT POCT GLUCOSE DEVICE Routine 11/03/2024 9:35 AM CDT POCT GLUCOSE DEVICE Routine 11/03/2024 8:21 AM CDT POCT GLUCOSE DEVICE Routine 11/03/2024 7:21 AM CDT POCT GLUCOSE DEVICE Routine 11/03/2024 6:49 AM CDT POCT GLUCOSE DEVICE Routine 11/03/2024 5:37 AM CDT POCT GLUCOSE DEVICE Routine 11/03/2024 3:39 AM CDT CRITICAL RESULT CALLBACK CHEMISTRY Routine 11/03/2024 2:25 AM CDT EGFR Routine 11/03/2024 2:25 AM CDT DIFFERENTIAL AUTO Routine 11/03/2024 2:25 AM CDT CBC WITH AUTO DIFFERENTIAL Routine 11/03 2:25 AM CDT BASIC METABOLIC PANEL Routine 11/03/2024 2:25 AM CDT POCT GLUCOSE DEVICE Routine 11/03/2024 2:03 AM CDT POCT GLUCOSE DEVICE Routine 11/02/2024 8:42 PM CDT POCT GLUCOSE DEVICE Routine 11/02/2024 6:19 PM CDT POCT GLUCOSE DEVICE Routine 11/02/2024 12:54 PM CDT POST-DIALYSIS BUN STAT 11/02/2024 11:27 AM CDT PRE-DIALYSIS BUN STAT 11/02/2024 8:37 AM CDT HEMODIALYSIS Routine 11/02/2024 8:35 AM CDT POCT GLUCOSE DEVICE Routine 11/02/2024 7:39 AM CDT POCT GLUCOSE DEVICE Routine 11/02/2024 3:12 AM CDT EGFR Routine 11/01/2024 9:45 PM CDT DIFFERENTIAL AUTO Routine 11/01/2024 9:45 PM CDT CBC WITH AUTO DIFFERENTIAL Routine 11/01 9:45 PM CDT BASIC METABOLIC PANEL Routine 11/01/2024 9:45 PM CDT POCT GLUCOSE DEVICE Routine 11/01/2024 9:30 PM CDT POCT GLUCOSE DEVICE Routine 11/01/2024 4:50 PM CDT POCT GLUCOSE DEVICE Routine 11/01/2024 11:49 AM CDT POCT GLUCOSE DEVICE Routine 11/01/2024 8:12 AM CDT POCT GLUCOSE DEVICE Routine 11/01/2024 1:38 AM CDT EGFR Routine 10/31/2024 11:30 PM CDT DIFFERENTIAL AUTO Routine 10/31/2024 11:30 PM CDT CBC WITH AUTO DIFFERENTIAL Routine 10/31 11:30 PM CDT BASIC METABOLIC PANEL Routine 10/31/2024 11:30 PM CDT POCT GLUCOSE DEVICE Routine 10/31/2024 8:07 PM CDT POCT GLUCOSE DEVICE Routine 10/31/2024 5:26 PM CDT POCT GLUCOSE DEVICE Routine 10/31/2024 1:18 PM CDT HEPATITIS B SURFACE ANTIGEN STAT 10/17 9:31 AM CDT POCT GLUCOSE DEVICE Routine 10/31/2024 7:50 AM CDT POCT GLUCOSE DEVICE Routine 10/31/2024 1:56 AM CDT EGFR Routine 10/30/2024 9:57 PM CDT DIFFERENTIAL AUTO Routine 10/30/2024 9:57 PM CDT CBC WITH AUTO DIFFERENTIAL Routine 10/30 9:57 PM CDT BASIC METABOLIC PANEL Routine 10/30/2024 9:57 PM CDT BETA-HYDROXYBUTYRATE Routine 10/30/2024 9:57 PM CDT POCT GLUCOSE DEVICE Routine 10/30/2024 8:29 PM CDT HEMODIALYSIS Routine 10/30/2024 7:33 PM CDT POCT GLUCOSE DEVICE Routine 10/30/2024 5:10 PM CDT POCT GLUCOSE DEVICE Routine 10/30/2024 1:08 PM CDT POCT GLUCOSE DEVICE Routine 10/30/2024 11:19 AM CDT EGFR Routine 10/30/2024 9:10 AM CDT BETA-HYDROXYBUTYRATE Timed 10/30/2024 9:10 AM CDT BASIC METABOLIC PANEL Routine 10/30/2024 9:10 AM CDT POCT GLUCOSE DEVICE Routine 10/30/2024 8:07 AM CDT POCT GLUCOSE DEVICE Routine 10/30/2024 6:31 AM CDT POCT GLUCOSE DEVICE Routine 10/30/2024 4:02 AM CDT POCT GLUCOSE DEVICE Routine 10/30/2024 2:30 AM CDT HEMOGLOBIN A1C Routine 10/30/2024 2:24 AM CDT EGFR Routine 10/30/2024 2:24 AM CDT DIFFERENTIAL AUTO Routine 10/30/2024 2:24 AM CDT BLOOD GAS, VENOUS Routine 10/30/2024 2:24 AM CDT BASIC METABOLIC PANEL Routine 10/30/2024 2:24 AM CDT CBC WITH AUTO DIFFERENTIAL Routine 10/30 2:24 AM CDT POCT GLUCOSE DEVICE Routine 10/30/2024 12:01 AM CDT POCT GLUCOSE DEVICE Routine 10/29/2024 10:01 PM CDT POCT GLUCOSE DEVICE Routine 10/29/2024 8:26 PM CDT LIPID PANEL STAT 10/29/2024 8:13 PM CDT EGFR STAT 10/29/2024 8:13 PM CDT BASIC METABOLIC PANEL STAT 10/29/2024 8:13 PM CDT POCT GLUCOSE DEVICE Routine 10/29/2024 4:00 PM CDT POCT GLUCOSE DEVICE Routine 10/29/2024 12:58 PM CDT POCT GLUCOSE DEVICE Routine 10/29/2024 11:55 AM CDT XR CHEST PA LATERAL 2 VIEWS ED 10/17 11:49 AM CDT POCT LACTATE - DEVICE Routine 10/29/2024 11:14 AM CDT HEMOGLOBIN A1C STAT 10/29/2024 11:03 AM CDT EGFR STAT 10/29/2024 11:03 AM CDT DIFFERENTIAL AUTO STAT 10/29/2024 11:03 AM CDT POTASSIUM, WHOLE BLOOD STAT 11:03 AM CDT LIPASE STAT 10/29/2024 11:03 AM CDT BLOOD GAS, VENOUS STAT 10/29/2024 11:03 AM CDT HEPATIC FUNCTION PANEL STAT 11:03 AM CDT BASIC METABOLIC PANEL STAT 10/29/2024 11:03 AM CDT CBC WITH AUTO DIFFERENTIAL STAT 10/29 11:03 AM CDT POCT KETONE, BLOOD Routine 10/29/2024 10:22 AM CDT POCT GLUCOSE DEVICE Routine 10/29/2024 10:21 AM CDT XR ABDOMEN AP 1 VIEW Schedule RED, Read RED (Appt Today, Awaiting Results) 10/27/2024 9:35 AM CDT Gastroparesis due to secondary diabetes (HCC) Presence of neurostimulator Encounter for adjustment and management of neurostimulator TSH Routine 01/09/2024 3:52 PM CDT HEPATITIS PANEL, ACUTE Routine 7:26 AM CDT from Last 3 Months or Most Recently Relevant to Health Maintenance Allergies Active Allergy Reactions Criticality Noted Date Comments Adhesive Unknown,Rash Medium 03/11/2017 Adhesive Tape-Silicones Rash Medium 03/11/2017 Hydralazine Anaphylaxis,Hives ,Urticaria High 06/29/2018 Hives on face and was not able to swallow Other reaction(s): Hives Hives on face and was not able to swallow Hives on face and was not able to swallow Hives on face and was not able to swallow Other reaction(s): Hives Hives on face and was not able to swallow Other reaction(s): Hives Hives on face and was not able to swallow Latex Rash Medium 06/07/2018 Patient states that she has NO latex allergy Metoclopramide Other (See comments),Unknown Low 03/29/2020 Uncontrolled movements Extrapyramidal symptoms Uncontrolled movements Uncontrolled movements Extrapyramidal symptoms Extrapyramidal symptoms Uncontrolled movements Extrapyramidal symptoms Uncontrolled movements Uncontrolled movements Extrapyramidal symptoms Extrapyramidal symptoms Uncontrolled movements Extrapyramidal symptoms Uncontrolled movements Extrapyramidal symptoms Uncontrolled movements Uncontrolled movements Extrapyramidal symptoms Extrapyramidal symptoms Uncontrolled movements Extrapyramidal symptoms Trimethobenzamide Swelling Medium 01/11/2024 Medications blood-glucose meter,continuous (Dexcom G6 Head Of Design) miscIndications:U ncontrolled type 1 diabetes mellitus with hyperglycemia, with long-term current use of insulin (HCC) 1 Dexcom G6 Head Of Design 1 each 023 Active OneTouch Delica Plus Lancet 33 gauge misc Use to test BG 4x/day 100 each 11 024 Active OneTouch Verio Flex meter misc Use as directed to check BG 1 each 024 Active insulin syringe-needle U-100 (BD Insulin Syringe Ultra-Fine) 0.3 mL 31 gauge x 5/16 syringe Use to inject insulin 4 times per day as back up to insulin pump. 100 each 11 Active insulin syr/ndl U100 half sharlene 0.3 mL 31 gauge x 15/64 syringe Use as directed 3 times a day 50 each 1 024 Active alcohol swabs (Alcohol Wipes) pads, medicated Use as directed. 100 each 024 Active escitalopram (LEXAPRO) 10 mg tablet Take 1 tablet (10 mg total) by mouth daily 90 tablet 3 2024 Active gabapentin (NEURONTIN) 100 mg capsule Take 1 capsule (100 mg total) by mouth 3 (three) times a day 270 capsule 3 2024 Active losartan (COZAAR) 100 mg tablet Take 1 tablet (100 mg total) by mouth daily 90 tablet 3 2024 Active Omnipod 5 G6-G7 Pods, Gen 5, cartridge USE DIRECTED AND CHANGE POD EVERY 3 DAYS Active OLANZapine (ZyPREXA) 5 mg tablet Take 1 tablet (5 mg total) by mouth nightly Active loperamide (IMODIUM) 2 mg capsule Take 1 capsule (2 mg total) by mouth 4 (four) times a day as needed for diarrhea 15 capsule Active blood-glucose sensor (Dexcom G6 Sensor) deviceIndications :Uncontrolled type 1 diabetes mellitus with hyperglycemia, with long-term current use of insulin ([facility]) Will use 1 sensor every 10 days. 1 box = 3 sensors. 3 each Active blood-glucose transmitter (Dexcom G6 Transmitter) deviceIndications :Uncontrolled type 1 diabetes mellitus with hyperglycemia, with long-term current use of insulin ([facility]) Will use 1 transmitter every 90 days 1 each 3 Active amLODIPine (NORVASC) 10 mg tablet Take 1 tablet (10 mg total) by mouth daily 30 tablet Active Additional Information Patient taking differently: 5 mgoral2 times daily, Reported on 12/26/2024 lidocaine (LIDODERM) 5 % Place 3 patches on the skin daily for 12 hours Remove & discard patch within 12 hours or as directed by . 30 patch Active Additional Information Patient not taking.Reported on 11/07/[address] (PROTONIX) 40 mg EC tablet Take 1 tablet (40 mg total) by mouth 2 (two) times a day 60 tablet Active doxazosin (CARDURA) 8 mg tablet Take 1 tablet (8 mg total) by mouth nightly 30 tablet Active insulin lispro (HumaLOG, ADMELOG) 100 unit/mL pen for injection Inject 10 Units under the skin 3 (three) times a day with meals 9 mL Active Additional Information Patient taking differently:10 Units subcutaneous 3 times daily with meals, Inject 0-7 Units into the skin 4 (four) times daily with meals and nightly. [Less than 70: Initiate Hypoglycemia Standing Orders][71-180: 0 units][181-220: 2 units][221-260: 3 units][261-300: 4 units][301-350: 5 units][351-400: 6 units][Greater than 400: 7 units and Call Physician], Reported on 11/28/2024 insulin glargine 100 unit/mL (3 mL) pen for injection Inject 20 Units under the skin daily 6 mL 025 Active metoprolol XL (TOPROL-XL) 200 mg extended release tablet Take 1 tablet (200 mg total) by mouth daily 30 tablet Active Saccharomyces boulardii (FLORASTOR) 250 mg capsule Take 1 capsule (250 mg total) by mouth 2 (two) times a day Active cholestyramine (QUESTRAN) 4 gram packet Take 1 packet by mouth daily Active L.acidoph-B.anima lis-B.longum 15 billion cell capsule Take 1 capsule by mouth navigation officer before breakfast Active albuterol 2.5 mg /3 mL (0.083 %) nebulizer solution Take 3 mL (2.5 mg total) by nebulization every 4 (four) hours as needed for wheezing Active diphenhydrAMINE 25 mg capsule Take 1 tablet/capsule (25 mg total) by mouth every 6 (six) hours as needed for itching or other (nausea) Active furosemide (LASIX) 40 mg tablet Take 1 tablet (40 mg total) by mouth 2 (two) times a day Indications: Fluid Overload Two times daily on Wednesday Active insulin NPH (HumuLIN N, NovoLIN N) 100 unit/mL vial for injection Inject 10 Units under the skin with evening meal Inject 10 Units into the skin daily with supper. Indications: Diabetes Active insulin NPH (HumuLIN N, NovoLIN N) 100 unit/mL vial for injection Inject 15 Units under the skin every morning Inject 15 Units into the skin every morning. Indications: Diabetes Active isosorbide mononitrate ER (IMDUR) 30 mg 24 hr tablet Take 1 tablet (30 mg total) by mouth daily Active ondansetron ODT (ZOFRAN-ODT) 4 mg disintegrating tablet Take 1 tablet (4 mg total) by mouth every 8 (eight) hours as needed for nausea or vomiting Active ramelteon (ROZEREM) 8 mg tabletIndications :Sleep-Onset Insomnia Take 1 tablet (8 mg total) by mouth nightly as needed for sleep Active buprenorphine (SUBUTEX) 2 mg tablet, sublingual Place 0.5 tablets (1 mg total) under the tongue every 8 (eight) hours as needed Active insulin glargine 100 unit/mL (3 mL) pen for injection Inject under the skin 3 times daily Active naloxone (NARCAN) 4 mg/actuation spray,non-aerosol Administer 1 spray into affected nostril(s) as needed 2025 Active NovoLIN N 100 unit/mL (3 mL) pen for injection TAKE 15 UNITS OF NPH IN THE MORNING WITH BREAKFAST AND 10 UNITS IN THE EVENING WITH DINNER Active oxyCODONE (ROXICODONE) solution 5 mg/5 mL TAKE 5 MLS BY MOUTH EVERY 6 (SIX) HOURS NEEDED FOR ACUTE PAIN < 3 DAY SUPPLY Active prochlorperazine (COMPAZINE) 5 mg tablet Active prochlorperazine (COMPAZINE) 10 mg tablet Take 1 tablet (10 mg total) by mouth 3 (three) times a day as needed for nausea 60 tablet 2024 Discontinued oxyCODONE (ROXICODONE) 5 mg immediate release tabletIndications :Pain Take 1 tablet (5 mg total) by mouth every 6 (six) hours as needed for pain 2024 Discontinued Active Problems Problem Noted Date Diagnosed Date 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 States that no pain medication other than iv dilaudid works. I have offered her alternative pain medications and she has refused all of them. In addition, compazine has been working well for her nausea but she consistently requests for iv benadryl. In addition consistently refuses any dietary recommendations or other medical management Assessment & Plan (11/04/2024 10:48 AM CDT): Patient has consistently been asking for iv dilaudid and iv benadryl. States that no pain medication other than iv dilaudid works. I have offered her alternative pain medications and she has refused all of them. In addition, compazine has been working well for her nausea but she consistently requests for iv benadryl. In addition consistently refuses any dietary recommendations or other medical management Assessment & Plan (11/03/2024 10:15 AM CDT): Patient has consistently been asking for iv dilaudid and iv benadryl. States that no pain medication other than iv dilaudid works. I have offered her alternative pain medications and she has refused all of them. In addition, compazine has been working well for her nausea but she consistently requests for iv benadryl. In addition consistently refuses any dietary recommendations or other medical management Assessment & Plan (11/02/2024 2:47 PM CDT): Patient has consistently been asking for iv dilaudid and iv benadryl. States that no pain medication other than iv dilaudid works. I have offered her alternative pain medications and she has refused all of them. In addition, compazine has been working well for her nausea but she consistently requests for iv benadryl. In addition consistently refuses any dietary recommendations or other medical management Nausea and vomiting, unspecified vomiting type 0 10/29/2024 Assessment & Plan (11/05/2024 8:57 AM CDT): Patient continues to have bouts of recurrent nausea/vomiting associated with abdominal pain since her diagnosis of gastroparesis. Patient underwent gastric stimulator and pyloromyotomy in the past but seems like her symptoms is persistent. This current episode started over a week ago since her hospitalization for DKA patient has not been able to eat or keep anything down per patient's report. Patient says she usually gets these sxs when in DKA, previously given IV benadryl and dilaudid. - continue Scopolamine patch q72h, Tylenol 650 q6h, we will DC scopolamine patch on discharge - can continue with just iv compazine 10 mg q6h prn for nausea - s/p iv fluids - Patient underwent her stimulator setting change; 11/04 - strict glycemic control Assessment & Plan (11/04/2024 10:48 AM CDT): Patient continues to have bouts of recurrent nausea/vomiting associated with abdominal pain since her diagnosis of gastroparesis. Patient underwent gastric stimulator and pyloromyotomy in the past but seems like her symptoms is persistent. This current episode started over a week ago since her hospitalization for DKA patient has not been able to eat or keep anything down per patient's report. Patient says she usually gets these sxs when in DKA, previously given IV benadryl and dilaudid. - continue Scopolamine patch q72h, Tylenol 650 q6h, we will DC scopolamine patch - can continue with just iv compazine 10 mg q6h prn for nausea - s/p iv fluids - Patient underwent her stimulator setting change yesterday; 11/04 - strict glycemic control Assessment & Plan (11/03/2024 11:57 AM CDT): Patient continues to have bouts of recurrent nausea/vomiting associated with abdominal pain since her diagnosis of gastroparesis. Patient underwent gastric stimulator and pyloromyotomy in the past but seems like her symptoms is persistent. This current episode started over a week ago since her hospitalization for DKA patient has not been able to eat or keep anything down per patient's report. Patient says she usually gets these sxs when in DKA, previously given IV benadryl and dilaudid. - continue Scopolamine patch q72h, Tylenol 650 q6h - can continue with just iv compazine 10 mg q6h prn for nausea - s/p iv fluids - awaiting MIS for setting change in her stimulator - strict glycemic control Assessment & Plan (11/02/2024 12:11 PM CDT): Patient continues to have bouts of recurrent nausea/vomiting associated with abdominal pain since her diagnosis of gastroparesis. Patient underwent gastric stimulator and pyloromyotomy in the past but seems like her symptoms is persistent. This current episode started over a week ago since her hospitalization for DKA patient has not been able to eat or keep anything down per patient's report. Patient says she usually gets these sxs when in DKA, previously given IV benadryl and dilaudid. - continue Scopolamine patch q72h, Tylenol 650 q6h - can continue with just iv compazine for nausea - s/p iv fluids - consult MIS for setting change in her stimulator - strict glycemic control Assessment & Plan (11/01/2024 11:12 AM CDT): Patient continues to have bouts of recurrent nausea/vomiting associated with abdominal pain since her diagnosis of gastroparesis. Patient underwent gastric stimulator and pyloromyotomy in the past but seems like her symptoms is persistent. This current episode started over a week ago since her hospitalization for DKA patient has not been able to eat or keep anything down per patient's report. Patient says she usually gets these sxs when in DKA, previously given IV benadryl and dilaudid. - continue Scopolamine patch q72h, Tylenol 650 q6h - benadryl iv x1 on 11/01 for Nausea - dc iv fluids - consult MIS for setting change in her stimulator - strict glycemic control Assessment & Plan (10/31/2024 12:24 PM CDT): Patient continues to have bouts of recurrent nausea/vomiting associated with abdominal pain since her diagnosis of gastroparesis. Patient underwent gastric stimulator and pyloromyotomy in the past but seems like her symptoms is persistent. This current episode started over a week ago since her hospitalization for DKA patient has not been able to eat or keep anything down per patient's report. Patient says she usually gets these sxs when in DKA, previously given IV benadryl and dilaudid. - continue Scopolamine patch q72h, Tylenol 650 q6h - dc iv fluids - consult MIS for setting change in her stimulator - strict glycemic control Assessment & Plan (10/30/2024 3:21 PM CDT): Patient continues to have bouts of recurrent nausea/vomiting associated with abdominal pain since her diagnosis of gastroparesis. Patient underwent gastric stimulator and pyloromyotomy in the past but seems like her symptoms is persistent. This current episode started over a week ago since her hospitalization for DKA patient has not been able to eat or keep anything down per patient's report. Patient says she usually gets these sxs when in DKA, previously given IV benadryl and dilaudid. - Will manage conservatively with IV fluids and Scopolamine patch q72h, Tylenol 650 q6h - Control blood sugars and we will make sure it is below 180 Assessment & Plan (10/29/2024 8:35 PM CDT): Patient continues to have bouts of recurrent nausea/vomiting associated with abdominal pain since her diagnosis of gastroparesis. Patient underwent gastric stimulator and pyloromyotomy in the past but seems like her symptoms is persistent. This current episode started over a week ago since her hospitalization for DKA patient has not been able to eat or keep anything down per patient's report. - Will manage conservatively with IV fluids and Zofran/Compazine - Control blood sugars and we will make sure it is below 180 DKA (diabetic ketoacidosis) 10/29/2024 Assessment & Plan (11/05/2024 8:57 AM CDT): Patient takes insulin NPH 15 units in the morning and 10 units at night in addition to sliding scale. Patient stated that he is compliant with her medications. Blood sugar initially noted to be elevated over 358 status post multiple doses of insulin lispro. Her beta hydroxy butyrate was slightly elevated at 1.2 now 0.6, anion gap was also elevated at 18 now at 13 with normal bicarbonate. - Insulin glargine 12 U +lispro 5 U+ slide scale-> increased to 20 units with 10 units TID with meals - on reg carb diet, counseled regarding strict adherence to diet - continuing to monitor POCT glucose and adjust insulin as warranted Assessment & Plan (11/04/2024 10:48 AM CDT): Patient takes insulin NPH 15 units in the morning and 10 units at night in addition to sliding scale. Patient stated that he is compliant with her medications. Blood sugar initially noted to be elevated over 358 status post multiple doses of insulin lispro. Her beta hydroxy butyrate was slightly elevated at 1.2 now 0.6, anion gap was also elevated at 18 now at 13 with normal bicarbonate. - Insulin glargine 12 U +lispro 5 U+ slide scale - on reg carb diet - continuing to monitor POCT glucose and adjust insulin as warranted Assessment & Plan (11/03/2024 10:15 AM CDT): Patient takes insulin NPH 15 units in the morning and 10 units at night in addition to sliding scale. Patient stated that he is compliant with her medications. Blood sugar initially noted to be elevated over 358 status post multiple doses of insulin lispro. Her beta hydroxy butyrate was slightly elevated at 1.2 now 0.6, anion gap was also elevated at 18 now at 13 with normal bicarbonate. - Insulin glargine 12 U +lispro 5 U+ slide scale - on reg carb diet - continuing to monitor POCT glucose and adjust insulin as warranted Assessment & Plan (11/02/2024 10:52 AM CDT): Patient takes insulin NPH 15 units in the morning and 10 units at night in addition to sliding scale. Patient stated that he is compliant with her medications. Blood sugar initially noted to be elevated over 358 status post multiple doses of insulin lispro. Her beta hydroxy butyrate was slightly elevated at 1.2 now 0.6, anion gap was also elevated at 18 now at 13 with normal bicarbonate. - Insulin glargine 12 U +lispro 5 U+ slide scale - on reg carb diet - continuing to monitor POCT glucose and adjust insulin as warranted Assessment & Plan (11/01/2024 11:12 AM CDT): Patient takes insulin NPH 15 units in the morning and 10 units at night in addition to sliding scale. Patient stated that he is compliant with her medications. Blood sugar initially noted to be elevated over 358 status post multiple doses of insulin lispro. Her beta hydroxy butyrate was slightly elevated at 1.2 now 0.6, anion gap was also elevated at 18 now at 13 with normal bicarbonate. - Insulin glargine 12 U +lispro 5 U+ slide scale - on reg carb diet - continuing to monitor POCT glucose and adjust insulin as warranted Assessment & Plan (10/31/2024 12:24 PM CDT): Patient takes insulin NPH 15 units in the morning and 10 units at night in addition to sliding scale. Patient stated that he is compliant with her medications. Blood sugar initially noted to be elevated over 358 status post multiple doses of insulin lispro. Her beta hydroxy butyrate was slightly elevated at 1.2 now 0.6, anion gap was also elevated at 18 now at 13 with normal bicarbonate. - Insulin glargine 12 U +lispro 5 U+ slide scale - on reg carb diet - continuing to monitor POCT glucose; currently well controlled Assessment & Plan (10/30/2024 3:21 PM CDT): Patient takes insulin NPH 15 units in the morning and 10 units at night in addition to sliding scale. Patient stated that he is compliant with her medications. Blood sugar initially noted to be elevated over 358 status post multiple doses of insulin lispro. Her beta hydroxy butyrate was slightly elevated at 1.2 now 0.6, anion gap was also elevated at 18 now at 13 with normal bicarbonate. - Insulin glargine 12 +lispro 5 + slide - on reg carb diet Assessment & Plan (10/29/2024 8:35 PM CDT): Patient takes insulin NPH 15 units in the morning and 10 units at night in addition to sliding scale. Patient stated that he is compliant with her medications. Blood sugar initially noted to be elevated over 358 status post multiple doses of insulin lispro. Her beta hydroxy butyrate was slightly elevated at 1.2, anion gap also elevated at 18 with normal bicarbonate. - Will treat with squid protocol for now - IV fluids Hypoglycemia, unspecified 09/16/2024 Chronic respiratory failure with hypoxia 025 Type 1 diabetes mellitus with hyperglycemia 10/2024 Anemia due to chronic kidney disease, on chronic dialysis 06/23/2024 Abnormal finding on GI tract imaging 06/20/2024 Hypoglycemia 2024 Abnormal gait 06/08/2024 Asthenia 06/08/2024 Eustachian tube disorder 06/07/2024 Acute sinusitis 06/07/2024 Esophagitis 06/07/2024 Gastroparesis 06/02/2024 Essential hypertension 06/02/2024 Bronchitis 06/02/2024 Gastroesophageal reflux disease without esophagi tis 06/02/2024 Hyperlipidemia 06/02/2024 Hypertensive heart and chronic kidney disease Moderate protein-calorie mal nutrition (weight for age 60-74% of standard) 06/02/2024 Pulmonary embolism 06/02/2024 Hydronephrosis 06/02/2024 Type 2 diabetes mellitus wit h diabetic chronic kidney disease 05/27/2024 Sepsis 03/12/2024 Nausea 02/16/2024 Diabetic ketoacidosis withou t coma associated with type 1 diabetes mellitus 02/09/2024 Fluid overload, unspecified 02/07/2024 Headache, unspecified 01/07/2024 Gastroparesis 12/23/2023 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 - Nephrology on board for dialysis Assessment & Plan (11/04/2024 10:48 AM CDT): On hemodialysis Wednesday, Wednesday and most recently had hemodialysis done yesterday. - Nephrology on board for dialysis Assessment & Plan (11/03/2024 10:15 AM CDT): On hemodialysis Wednesday, Wednesday and most recently had hemodialysis done yesterday. - Nephrology on board for dialysis Assessment & Plan (11/02/2024 10:52 AM CDT): On hemodialysis Wednesday, Wednesday and most recently had hemodialysis done yesterday. - Nephrology on board for dialysis Assessment & Plan (11/01/2024 11:12 AM CDT): On hemodialysis Wednesday, Wednesday and most recently had hemodialysis done yesterday. - Nephrology on board for dialysis Assessment & Plan (10/31/2024 12:24 PM CDT): On hemodialysis Wednesday, Wednesday and most recently had hemodialysis done yesterday. - Nephrology on board for dialysis Assessment & Plan (10/30/2024 3:21 PM CDT): On hemodialysis Wednesday, Wednesday and most recently had hemodialysis done yesterday. - Consult nephrology for HD on Wednesday-done - No indication for urgent HD at this time Assessment & Plan (10/29/2024 8:35 PM CDT): On hemodialysis Wednesday, Wednesday and most recently had hemodialysis done yesterday. - Consult nephrology for HD on Wednesday - No indication for urgent HD at this time Nausea 09/15/2023 End-stage renal disease 08/10/2023 Mild protein-calorie malnutrition 07/20/2023 Pain, unspecified 07/16/2023 Thompson's esophagus without dysplasia 07/10/2023 Type 1 diabetes mellitus wit h diabetic chronic kidney disease 07/09/2023 Old myocardial infarction 06/16/2023 Chronic kidney disease 06/16/2023 Hypertensive chronic kidney disease with stage 5 chronic kidney disease or end stage renal disease 06/16/2023 Recurrent major depression 06/16/2023 Candidal esophagitis 06/15/2023 Assessment & Plan (07/07/2023 12:17 PM CDT): Recent OP EGD on 06/09/23 with esophageal plaques biopsy consistent with candidal esophagitis. Completed 2 weeks of fluconazole RESOLVED. Multiple fractures of ribs, left side, subsequent encounter for fracture with routine healing 02/17/2023 Compression fracture of L3 l umbar vertebra, closed, initial encounter 10/27/2022 Hypertensive heart and chron ic kidney disease without heart failure, with stage 5 chronic kidney disease, or end stage renal disease 10/27/2022 Dependence on renal dialysis 10/26/2022 Retention of urine, unspecified 04/19/2022 Diabetic nephropathy associa tin with type 1 diabetes mellitus 08/07/2021 Assessment & Plan (05/13/2022 9:19 AM [employer]'): Glucose overall improved Continue current regimen Given info for endo referral to call for appointment. Assessment & Plan (08/07/2021 9:58 AM CDT): Pt presented w/ an RODRIGUEZ and was tx w/ IVF NS that resolved the matter. She has a h/o insulin non-compliance and has had proteinuria on multiple occasions. Per nephrology, she likely has DM nephropathy and will follow up as an OP. Status post laparoscopic cholecystectomy 022 Depressive disorder 06/03/2021 Generalized anxiety disorder 05/13/2020 Assessment & Plan (07/08/2023 11:25 AM CDT): Used to take Atarax at home for anxiety. Currently on Benadryl for nausea and abdominal pain (?), see weaning plan. Spot atarax during admit. Continue lexapro 5mg/d and advance to 10mg 07/07. F/u with PCP for ongoing management and further titration as needed. Assessment & Plan (08/09/2021 2:13 PM CDT): Pt is obviously uncomfortable and anxious, though difficult to assess whether this is Munchausen's or true discomfort. Has been seen at times to be completely fine but will change her persona in the presence of staff. Was given 1mg of ativan in the ED, states that she takes ativan on a daily basis. Her UDS was neg though here in the hospital. - will continue to monitor - discussed f/u w/ pcp for further management and proper care of her anxiety - started Zoloft on 08/09 and will d/c on Lexapro 20mg Assessment & Plan (08/04/2020 4:14 PM CDT): Chronic Cont klonopin rather than xanx Assessment & Plan (05/15/2020 6:30 AM [employer]'): Uncontrolled Start cymbalta, xanax Odynophagia 04/09/2020 DKA (diabetic ketoacidosis) 02/05/2020 Iron deficiency anemia, unspecified 08/09/2019 Microcytic anemia 08/06/2019 Assessment & Plan (07/08/2023 11:24 AM CDT): Progressive anemia with bL 7-8, down to 6.7 on 06/16. No bleeding seen, likely related to ESRD and VELVET based on iron labs from 05/19 (folate/b12 normal 04/2023). Transfused 1 unit PRBC 06/16 and iron low. Transfused 2nd PRBC 06/17 with f/u hgb 8.8. Received IV iron with 6 dialysis sessions per nephro (first 06/17). Not given in dialysis 07/05, so given on floor and completed course. Monitored serial counts. Keep Hb>7 goal. Remains hemodynamically stable. Hb 8.5 prior to discharge. F/u with renal clinic and PCP as OP. Assessment & Plan (08/07/2021 7:25 AM CDT): Stable. Nothing to do Assessment & Plan (07/16/2021 8:38 AM CDT): Will monitor with daily CBC. On admission, Hgb 9.7. Assessment & Plan (07/14/2021 6:24 PM CDT): Will monitor with daily CBC. On admission, Hgb 9.7. Assessment & Plan (08/06/2019 6:17 AM CDT): Appears to be intermittent. Patient's hemoglobin was 9.8 2 months ago, 12.2 1 month ago and 10.4 a month ago. Currently it is at 10.4. Patient is not menstruating. She has a history of gastritis and has not had an EGD in 4 years. Will check a guaiac. Review of chart shows patient had a CT of the abdomen last month which showed distal esophagus thickened. Will order IV Protonix. 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 Continue to monitor. Hold any anticoagulation for now. Moderate malnutrition 04/26/2019 Assessment & Plan (11/05/2024 8:57 AM CDT): RD consult Assessment & Plan (11/04/2024 10:48 AM CDT): RD consult Assessment & Plan (11/03/2024 10:15 AM CDT): RD consult Assessment & Plan (11/02/2024 10:52 AM CDT): RD consult Assessment & Plan (11/01/2024 11:12 AM CDT): RD consult Assessment & Plan (10/31/2024 12:24 PM CDT): RD consult Assessment & Plan (10/30/2024 3:21 PM CDT): RD consult Assessment & Plan (10/29/2024 8:35 PM CDT): RD consult Assessment & Plan (05/15/2020 6:30 AM [employer]'): PICC line in place because of need for recurrent IVF Assessment & Plan (06/27/2019 8:49 AM CDT): - 2/2 diabeters and chronic poor control and long standing cyclic vomiting and gastroperesis. Diet as tolerated, diabetic diet. Assessment & Plan (06/12/2019 12:12 PM [employer]'): -Continue supplements as tolerated Diabetic gastroparalysis 11/08/2018 Major depression, recurrent, chronic 07/07/2018 Assessment & Plan (11/05/2024 8:57 AM CDT): Continue home Lexapro Assessment & Plan (11/04/2024 10:48 AM CDT): Continue home Lexapro Assessment & Plan (11/03/2024 10:15 AM CDT): Continue home Lexapro Assessment & Plan (11/02/2024 10:52 AM CDT): Continue home Lexapro Assessment & Plan (11/01/2024 11:12 AM CDT): Continue home Lexapro Assessment & Plan (10/31/2024 12:24 PM CDT): Continue home Lexapro Assessment & Plan (10/30/2024 3:21 PM CDT): Continue home Lexapro Assessment & Plan (10/29/2024 8:35 PM CDT): Continue home Lexapro GERD (gastroesophageal reflux disease) Assessment & Plan (11/05/2024 8:57 AM CDT): Continue home PPI Assessment & Plan (11/04/2024 10:48 AM CDT): Continue home PPI Assessment & Plan (11/03/2024 10:15 AM CDT): Continue home PPI Assessment & Plan (11/02/2024 10:52 AM CDT): Continue home PPI Assessment & Plan (11/01/2024 11:12 AM CDT): Continue home PPI Assessment & Plan (10/31/2024 12:24 PM CDT): Continue home PPI Assessment & Plan (10/30/2024 3:21 PM CDT): Continue home PPI Assessment & Plan (10/29/2024 8:35 PM CDT): Continue home PPI Gastroparesis due to secondary diabetes 10/27/19 18 Assessment & Plan (11/05/2024 8:57 AM CDT): Patient continues to have bouts of recurrent nausea/vomiting associated with abdominal pain since her diagnosis of gastroparesis. Patient underwent gastric stimulator and pyloromyotomy in the past but seems like her symptoms is persistent. This current episode started over a week ago since her hospitalization for DKA patient has not been able to eat or keep anything down per patient's report. Patient says she usually gets these sxs when in DKA, previously given IV benadryl and dilaudid. - continue Scopolamine patch q72h, Tylenol 650 q6h, we will DC scopolamine patch on discharge - can continue with just iv compazine 10 mg q6h prn for nausea - s/p iv fluids - Patient underwent her stimulator setting change; 11/04 - strict glycemic control Assessment & Plan (11/04/2024 10:48 AM CDT): Patient continues to have bouts of recurrent nausea/vomiting associated with abdominal pain since her diagnosis of gastroparesis. Patient underwent gastric stimulator and pyloromyotomy in the past but seems like her symptoms is persistent. This current episode started over a week ago since her hospitalization for DKA patient has not been able to eat or keep anything down per patient's report. Patient says she usually gets these sxs when in DKA, previously given IV benadryl and dilaudid. - continue Scopolamine patch q72h, Tylenol 650 q6h, we will DC scopolamine patch - can continue with just iv compazine 10 mg q6h prn for nausea - s/p iv fluids - Patient underwent her stimulator setting change yesterday; 11/04 - strict glycemic control Assessment & Plan (11/03/2024 11:57 AM CDT): Patient continues to have bouts of recurrent nausea/vomiting associated with abdominal pain since her diagnosis of gastroparesis. Patient underwent gastric stimulator and pyloromyotomy in the past but seems like her symptoms is persistent. This current episode started over a week ago since her hospitalization for DKA patient has not been able to eat or keep anything down per patient's report. Patient says she usually gets these sxs when in DKA, previously given IV benadryl and dilaudid. - continue Scopolamine patch q72h, Tylenol 650 q6h - can continue with just iv compazine 10 mg q6h prn for nausea - s/p iv fluids - awaiting MIS for setting change in her stimulator - strict glycemic control Assessment & Plan (11/02/2024 12:11 PM CDT): Patient continues to have bouts of recurrent nausea/vomiting associated with abdominal pain since her diagnosis of gastroparesis. Patient underwent gastric stimulator and pyloromyotomy in the past but seems like her symptoms is persistent. This current episode started over a week ago since her hospitalization for DKA patient has not been able to eat or keep anything down per patient's report. Patient says she usually gets these sxs when in DKA, previously given IV benadryl and dilaudid. - continue Scopolamine patch q72h, Tylenol 650 q6h - can continue with just iv compazine for nausea - s/p iv fluids - consult MIS for setting change in her stimulator - strict glycemic control Assessment & Plan (11/01/2024 11:12 AM CDT): Patient continues to have bouts of recurrent nausea/vomiting associated with abdominal pain since her diagnosis of gastroparesis. Patient underwent gastric stimulator and pyloromyotomy in the past but seems like her symptoms is persistent. This current episode started over a week ago since her hospitalization for DKA patient has not been able to eat or keep anything down per patient's report. Patient says she usually gets these sxs when in DKA, previously given IV benadryl and dilaudid. - continue Scopolamine patch q72h, Tylenol 650 q6h - benadryl iv x1 on 11/01 for Nausea - dc iv fluids - consult MIS for setting change in her stimulator - strict glycemic control Assessment & Plan (10/31/2024 12:24 PM CDT): Patient continues to have bouts of recurrent nausea/vomiting associated with abdominal pain since her diagnosis of gastroparesis. Patient underwent gastric stimulator and pyloromyotomy in the past but seems like her symptoms is persistent. This current episode started over a week ago since her hospitalization for DKA patient has not been able to eat or keep anything down per patient's report. Patient says she usually gets these sxs when in DKA, previously given IV benadryl and dilaudid. - continue Scopolamine patch q72h, Tylenol 650 q6h - dc iv fluids - consult MIS for setting change in her stimulator - strict glycemic control Assessment & Plan (10/30/2024 3:21 PM CDT): Patient continues to have bouts of recurrent nausea/vomiting associated with abdominal pain since her diagnosis of gastroparesis. Patient underwent gastric stimulator and pyloromyotomy in the past but seems like her symptoms is persistent. This current episode started over a week ago since her hospitalization for DKA patient has not been able to eat or keep anything down per patient's report. Patient says she usually gets these sxs when in DKA, previously given IV benadryl and dilaudid. - Will manage conservatively with IV fluids and Scopolamine patch q72h, Tylenol 650 q6h - Control blood sugars and we will make sure it is below 180 Assessment & Plan (10/29/2024 8:35 PM CDT): Patient continues to have bouts of recurrent nausea/vomiting associated with abdominal pain since her diagnosis of gastroparesis. Patient underwent gastric stimulator and pyloromyotomy in the past but seems like her symptoms is persistent. This current episode started over a week ago since her hospitalization for DKA patient has not been able to eat or keep anything down per patient's report. - Will manage conservatively with IV fluids and Zofran/Compazine - Control blood sugars and we will make sure it is below 180 Assessment & Plan (07/08/2023 11:21 AM CDT): Severe gastroparesis, failed several antiemetics, erythromycin and gastric stimulator placement (10/05/22). Admitted to OSH with worsening pain and nausea vomiting, gastric stimular increased without improvement prior to transfer. EGD on 06/09 showed large amount of food in the stomach and biopsy with candidal esophagitis as below. Transferred for MIS evaluation given refractory gastroparesis. Had been followed by palliative care at OSH, pain managed with mostly IV dilaudid and was on a REGULATOR OPERATOR briefly. - continues to have severe abdominal pain, currently dilaudid IV PRN , Lyrica po. She has attempted other agents such as erythromycin, Carafate, Doxycycline, Rifaximin, Montegrity (prucalopride),, Bentyl, PPis/ H2B, TCAs, Domperidone, B12, CoQ10, L-carnitine, alpha lipoic acid as per GI note without improvement - Initially she was able to eat although reported regular vomiting which subsequently improved. Initially was on benadryl 50mg IV as reports this is the only option for control, reports acute dystonic reaction or EPS relating to antiemetics such as zofran, compazine, reglan, or tigan and has refused further attempts regarding these. Zyprexa increased to 10mg nightly 06/16. She was able to consistently eat and weight has been stable so no indication for feeding tube .She was recommended a diet by Dr. Chaves which she does not adhere to including a diabetic diet Underwent G POEMS with MIS on 06/23. MIS explained that she might be having ongoing pain for 2-4 weeks post procedure, they signed off. MIS recommended pureed diet as tolerated x 2 weeks, then can advance to esophageal soft diet 07/07 for another 2 weeks. They Counseled on adherence to this diet. She requested to advance the diet multiple times across multiple providers and ongoing explanations for the need for adherence, requested to speak with surgeons, they came and reiterated the same. Plan change to esophageal diet today. Lace Winder to review prior to dc Plan f/u with Dr Chaves in GI as OP Assessment & Plan (03/31/2022 5:47 PM [employer]'): Type 1 diabetic Cyclical vomiting, gastroparesis - undergoing eval for possible device placement by surgeon for gastroparesis. Uncontrolled nausea/vomiting currently. Restart valium PRN - helps with muscle spasms and relaxes GI. IV fluids given today for dehydration. Follow up 1 week. Labs ordered Assessment & Plan (08/08/2021 1:29 PM CDT): Pt has a h/o uncontrolled DM1, A1c has never been <10 for the last 6yrs, and has developed gastroparesis for the last year. Has an appointment for GI in [place] next month. Currently is on SSI, but BG are not well controlled. Her NV is likely 2/2 her gastroparesis due to her uncontrolled DM. In the past, she has requested IV benadryl and morphine, saying that those medications are the ones that work for her. Did seem to improve w/ administration of Haldol. - will continue w/ current management - avoid narcotics - Endocrinology consulted due to alternating hypo[heyper]glycemic events - daily BMP and CBC - glucose monitoring q1hr Assessment & Plan (05/15/2020 2:56 PM [employer]'): Needs letter for another 2 weeks off and when returns needs intermittent restrictions on return with no more than 3 days per week, but not consecutive 3 days Assessment & Plan (05/15/2020 6:29 AM [employer]'): Uncontrolled Cont treatment per GI Cont reglan Has PICC line Assessment & Plan (06/27/2019 8:44 AM CDT): - Chronic emesis which triggers DKA. No active symptoms now. - PCP follow up. - Glucose control as above. Assessment & Plan (04/21/2019 1:24 PM [employer]'): -Patient reports h/o positive gastric emptying study as well as retained food on EGDs -GI consulted for further recs. D/w GI fellow, there may be component of [facility] as well. They recommend starting amitriptyline 25mg QHS and prucalopride 2mg daily -Patient reports extrapyramidal side effects (jerking, restless leg) on high dose reglan but is willing to retry a lower dose 5mg TID. Will assess response today -Continue PRN zofran and phenergan -N/V will be chronic issue for patient so I don't plan on keeping her hospitalized for further inpatient evaluation of this. D/c home if tolerating some clears or solids -I had discussion with patient regarding pain control. senior living opioids would be a very poor choice for her, given her gastroparesis, young age, and potential for developing dependence/addiction. Will not discharge on opioids. Assessment & Plan (04/20/2019 6:16 PM [employer]'): -Patient reports h/o positive gastric emptying study as well as retained food on EGDs -GI consulted for further recs -Patient reports extrapyramidal side effects (jerking, restless leg) on high dose reglan but is willing to retry a lower dose 5mg TID -Continue PRN zofran and phenergan Assessment & Plan (08/24/2018 2:42 PM CDT): Diabetes is worsening. Medication changes per orders. Diabetes will be reassessed in 6 months. Restart Reglan Type 1 diabetes mellitus wit h stage 5 chronic kidney disease not on chronic dialysis 05/22/2017 Overview (01/08/2020): Last Assessment & Plan: -Brittle DM1 -Home regimen Lantus 25 units, humalog carb count with sliding scale -Received lantus 25 units yesterday AM and 2 units with lunch and had some hypoglycemia (53) yesterday Lantus dose reduced to 22 Units now with elevated BG 388. -NPO this am while BG improved now 180s Will advance diet, increase Lantus, continue prandial and SSI Last Assessment & Plan: Not in DKA at the moment Start SSI and follow glucose levels with frequent accuchecks Glucose is improving compared to earlier Last Assessment & Plan: - Chronic emesis which triggers DKA. No active symptoms now. - PCP follow up. - Glucose control as above. Assessment & Plan (11/05/2024 8:57 AM CDT): Patient takes insulin NPH 15 units in the morning and 10 units at night in addition to sliding scale. Patient stated that he is compliant with her medications. Blood sugar initially noted to be elevated over 358 status post multiple doses of insulin lispro. Her beta hydroxy butyrate was slightly elevated at 1.2 now 0.6, anion gap was also elevated at 18 now at 13 with normal bicarbonate. - Insulin glargine 12 U +lispro 5 U+ slide scale-> increased to 20 units with 10 units TID with meals - on reg carb diet, counseled regarding strict adherence to diet - continuing to monitor POCT glucose and adjust insulin as warranted Assessment & Plan (11/04/2024 10:48 AM CDT): Patient takes insulin NPH 15 units in the morning and 10 units at night in addition to sliding scale. Patient stated that he is compliant with her medications. Blood sugar initially noted to be elevated over 358 status post multiple doses of insulin lispro. Her beta hydroxy butyrate was slightly elevated at 1.2 now 0.6, anion gap was also elevated at 18 now at 13 with normal bicarbonate. - Insulin glargine 12 U +lispro 5 U+ slide scale - on reg carb diet - continuing to monitor POCT glucose and adjust insulin as warranted Assessment & Plan (11/03/2024 10:15 AM CDT): Patient takes insulin NPH 15 units in the morning and 10 units at night in addition to sliding scale. Patient stated that he is compliant with her medications. Blood sugar initially noted to be elevated over 358 status post multiple doses of insulin lispro. Her beta hydroxy butyrate was slightly elevated at 1.2 now 0.6, anion gap was also elevated at 18 now at 13 with normal bicarbonate. - Insulin glargine 12 U +lispro 5 U+ slide scale - on reg carb diet - continuing to monitor POCT glucose and adjust insulin as warranted Assessment & Plan (11/02/2024 10:52 AM CDT): Patient takes insulin NPH 15 units in the morning and 10 units at night in addition to sliding scale. Patient stated that he is compliant with her medications. Blood sugar initially noted to be elevated over 358 status post multiple doses of insulin lispro. Her beta hydroxy butyrate was slightly elevated at 1.2 now 0.6, anion gap was also elevated at 18 now at 13 with normal bicarbonate. - Insulin glargine 12 U +lispro 5 U+ slide scale - on reg carb diet - continuing to monitor POCT glucose and adjust insulin as warranted Assessment & Plan (11/01/2024 11:12 AM CDT): Patient takes insulin NPH 15 units in the morning and 10 units at night in addition to sliding scale. Patient stated that he is compliant with her medications. Blood sugar initially noted to be elevated over 358 status post multiple doses of insulin lispro. Her beta hydroxy butyrate was slightly elevated at 1.2 now 0.6, anion gap was also elevated at 18 now at 13 with normal bicarbonate. - Insulin glargine 12 U +lispro 5 U+ slide scale - on reg carb diet - continuing to monitor POCT glucose and adjust insulin as warranted Assessment & Plan (10/31/2024 12:24 PM CDT): Patient takes insulin NPH 15 units in the morning and 10 units at night in addition to sliding scale. Patient stated that he is compliant with her medications. Blood sugar initially noted to be elevated over 358 status post multiple doses of insulin lispro. Her beta hydroxy butyrate was slightly elevated at 1.2 now 0.6, anion gap was also elevated at 18 now at 13 with normal bicarbonate. - Insulin glargine 12 U +lispro 5 U+ slide scale - on reg carb diet - continuing to monitor POCT glucose; currently well controlled Assessment & Plan (10/30/2024 3:21 PM CDT): Patient takes insulin NPH 15 units in the morning and 10 units at night in addition to sliding scale. Patient stated that he is compliant with her medications. Blood sugar initially noted to be elevated over 358 status post multiple doses of insulin lispro. Her beta hydroxy butyrate was slightly elevated at 1.2 now 0.6, anion gap was also elevated at 18 now at 13 with normal bicarbonate. - Insulin glargine 12 +lispro 5 + slide - on reg carb diet Assessment & Plan (10/29/2024 8:35 PM CDT): Patient takes insulin NPH 15 units in the morning and 10 units at night in addition to sliding scale. Patient stated that he is compliant with her medications. Blood sugar initially noted to be elevated over 358 status post multiple doses of insulin lispro. Her beta hydroxy butyrate was slightly elevated at 1.2, anion gap also elevated at 18 with normal bicarbonate. 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 - We will continue home meds including doxazosin, metoprolol and losartan - uncontrolled on 11/01 as she was refusing oral medications; added iv labetalol. - Coreg was dc'd as she is also on metoprolol - switched lopressor to Toprol 200 mg - increased doxazosin to 8 mg Assessment & Plan (11/04/2024 10:48 AM CDT): Blood pressure was noted to be elevated initially in the ED likely secondary to abdominal pain and nausea/vomiting. - We will continue home meds including Coreg, doxazosin, metoprolol and losartan - uncontrolled on 11/01 as she was refusing oral medications; added iv labetalol. -Patient's blood pressure stays controlled if she continues to take her medications Assessment & Plan (11/03/2024 10:15 AM CDT): Blood pressure was noted to be elevated initially in the ED likely secondary to abdominal pain and nausea/vomiting. - We will continue home meds including Coreg, doxazosin, metoprolol and losartan - uncontrolled on 11/01 as she was refusing oral medications; added iv labetalol Assessment & Plan (11/02/2024 10:52 AM CDT): Blood pressure was noted to be elevated initially in the ED likely secondary to abdominal pain and nausea/vomiting. - We will continue home meds including Coreg, doxazosin, metoprolol and losartan - uncontrolled on 11/01 as she was refusing oral medications; added iv labetalol Assessment & Plan (11/01/2024 11:12 AM CDT): Blood pressure was noted to be elevated initially in the ED likely secondary to abdominal pain and nausea/vomiting. - We will continue home meds including Coreg, doxazosin, metoprolol and losartan - uncontrolled on 11/01 as she was refusing oral medications; added iv labetalol Assessment & Plan (10/31/2024 12:24 PM CDT): Blood pressure was noted to be elevated initially in the ED likely secondary to abdominal pain and nausea/vomiting. - We will continue home meds including Coreg, doxazosin, metoprolol and losartan Assessment & Plan (10/30/2024 3:21 PM CDT): Blood pressure was noted to be elevated initially in the ED likely secondary to abdominal pain and nausea/vomiting. - We will continue home meds including Coreg, doxazosin, metoprolol and losartan Assessment & Plan (10/29/2024 8:35 PM CDT): Blood pressure was noted to be elevated initially in the ED likely secondary to abdominal pain and nausea/vomiting. - We will continue home meds including Coreg, doxazosin, metoprolol and losartan Assessment & Plan (03/31/2022 5:47 PM [employer]'): Not at goal Pt left office today before BP recheck could be completed. F/u 1 week Assessment & Plan (08/07/2021 10:01 AM CDT): Pt has a h/o uncontrolled HTN. Has been SBP >200 at times during admission. She was restarted on home metoprolol and norvasc but has continued to be elevated. This could be 2/2 uncontrolled DM. - clonidine 1x given on 08/07 - continue home medications Assessment & Plan (07/16/2021 8:39 AM CDT): Patient with elevated BPs since admission. Blood pressure controlled with prn meds, still fluctuating. Home meds reordered. - continue labetalol (increased to 20mg), clonidine prn - home med metoprolol XL increased to 50mg on 07/16/2021 - home med lisinopril increased to 20mg on 07/16/2021 Assessment & Plan (07/15/2021 8:27 AM CDT): Patient with elevated BPs since admission. As high as 209/115. Blood pressure controlled with prn meds, still fluctuating. Home meds reordered. - continue labetalol, clonidine prn - home med metoprolol XL - home med lisinopril increased to 10mg Assessment & Plan (03/29/2020 5:24 AM [employer]'): Stable Cont lisinopril, amlodipine Assessment & Plan (08/06/2019 6:15 AM CDT): Blood pressures were elevated on presentation, likely secondary to discomfort. Continue metoprolol on lisinopril with hold parameters. Patient states normally her blood pressures are 140s over 90s. Assessment & Plan (07/04/2019 12:56 PM CDT): -Clonidine patch and metoprolol XL 25mg -Home lisinopril 5mg held, BP stable so will resume on discharge Assessment & Plan (07/03/2019 6:07 PM CDT): -Clonidine patch and metoprolol XL 25mg -Home lisinopril 5mg held, BP stable so will resume on discharge Assessment & Plan (06/27/2019 8:48 AM CDT): - BP stable with home clonidine, lisinopril. Assessment & Plan (06/12/2019 12:12 PM [employer]'): continue lisinopril and toprol xl , clonidine patch Assessment & Plan (06/11/2019 1:52 PM [employer]'): _BP better today , continue lisinopril and toprol xl Assessment & Plan (05/07/2019 2:03 PM [employer]'): On clonidine, metoprolol and lisinopril at home. - continue home clonidine and metoprolol - hold lisinopril for now (? EUGENIE related intestinal angioedema). May need to consider alternative anti-hypertensive if needed as a trial. Assessment & Plan (04/28/2019 4:43 PM [employer]'): - Cont home meds Assessment & Plan (04/27/2019 2:59 PM [employer]'): - Cont home meds Assessment & Plan (04/21/2019 12:59 PM [employer]'): Clonidine patch and metoprolol XL -BP stable Assessment & Plan (04/11/2019 12:43 PM [employer]'): Cont lisinopril and Toprol XL, and due for change of clonidine patch Assessment & Plan (04/10/2019 11:29 AM [employer]'): BP elevated this am but improved after receiving home meds. Also has a clonidine patch which is due to be changed on Assessment & Plan (02/03/2019 9:53 AM CDT): Stable Assessment & Plan (08/24/2018 2:44 PM CDT): Hypertension is stable. Continue current medications. Blood pressure will be reassessed at the next regular appointment Cont lisinopril. Acute respiratory failure 11/30/2011 Immunizations Immunization Administration Dates Next Due DTP / HiB 07/10/1996, 6,1995,09/14 DTaP 12/03/2000,01/17/1998 Hep B, Unspecified 1995,1995, 996 Heplisav-b (Hepatitis B) 09/02/2023,07/20/2023 Hib (PRP-T) 01/17/1998 Influenza, Quadrivalent, Spl it, Preservative Free, Intramuscular 02/16/2023,02/14/2021 Influenza, Trivalent, Cell Culture-based MDCK, Preservative Free, Antibiotic Free, Intramuscular 02/02/2024 Influenza, Unspecified 01/17/2022(Deferr ed: Patient decision),01/17/2022(Deferred: Patient decision),02/27/2020,02/28/2019 MMR 12/03/2000,10/12/1996 OPV 01/21/1996,1995 PPD TEST 05/22/2016 Polio, Unspecified 01/17/1998,07/10/1996, 996 Varicella 10/12/1996 Social History Tobacco Use Types Packs/Day Years Used Date Smoking Tobacco: Never Smokeless Tobacco: Never Tobacco Cessation:Counseling Given: Not Answered Alcohol Use Standard Drinks/Week Comments Not Currently 0 (1 standard drink = 0.6 oz pur e alcohol) [facility] Utilities Answer Date Recorded In the past 12 months has e electric, gas, oil, or water [employer] threatened to shut off services in your home? No 11/07/2024 Social Connection and Isolation Panel Answer Date Recorded In a typical week, how many times do you talk on the phone with family, friends, or neighbors? More than three times a week 11/07/2024 How often do you get togethe r with friends or relatives? More than three times a week 11/07/2024 How often do you attend chur ch or anabaptism services? Never 11/07/2024 Do you belong to any clubs o r organizations such as voodoo groups, unions, fraternal or athletic groups, or school groups? No 11/07/2024 How often do you attend meet ings of the clubs or organizations you belong to? Never 11/07/2024 Are you , , di vorced, , never , or living with a partner? Never 11/07/2024 Overall Financial Resource Strain (CARDIA) Answe r Date Recorded How hard is it for you to pa y for the very basics like food, housing, medical care, and heating? Not hard at all 11/07/2024 PHQ-2 Answer Date Recorded PHQ-2 Total Score 0 11/01/2024 [facility] Occupat ional Health - Occupational Stress Questionnaire Answer Date Recorded Do you feel stress - tense, restless, nervous, or anxious, or unable to sleep at night because your mind is troubled all the time - these days? Very much 11/07/2024 Hunger Vital Sign Answer Date Recorded Within the past 12 months, y ou worried that your food would run out before you got the money to buy more. Never true 11/08/19 25 Within the past 12 months, t he food you bought just didn't last and you didn't have money to get more. Never true 11/07/2024 PRAPARE - Transportation Answer Date Re corded In the past 12 months, has l ack of transportation kept you from medical appointments or from getting medications? No 10/18 In the past 12 months, has l ack of transportation kept you from meetings, work, or from getting things needed for daily living? No 11/07/2024 Housing Stability Vital Sign Answer Pablo e Recorded In the last 12 months, was t here a time when you were not able to pay the mortgage or rent on time? No 08/30/2023 In the last 12 months, how many places have you lived? 2 08/30/2023 In the last 12 months, was t here a time when you did not have a steady place to sleep or slept in a long-term (including now)? No 08/30/2023 PHQ-9 Answer Date Recorded PHQ-9 Total Score 3 06/19/2024 Housing Stability Vital Sign Answer Pablo e Recorded In the last 12 months, was t here a time when you were not able to pay the mortgage or rent on time? No 11/07/2024 In the past 12 months, how m any times have you moved where you were living? 0 11/07/2024 At any time in the past 12 m [facility], were you homeless or living in a long-term (including now)? No 11/07/2024 AUDIT-C Answer Date Recorded Q1: How often do you have a drink containing alc ohol? Never 12/26/2024 Average Number of Drinks Not on file 025 Frequency of Binge Drinking Not on file 12/2024 Personal Safety Answer Date Recorded Have you ever been in or are you currently in a harmful physical or emotional relationship or is someone making you feel afraid or unsafe? Denies 12/26/2024 Comments Unknown Sex and Gender Information Value Date Recorded Sex Assigned at Not on file Legal Sex Female 9:16 AM [employer]' Gender Identity Not on file Sexual Orientation Not on file Last Filed Vital Signs Vital Sign Reading Time Taken Comments Blood Pressure 148/90 12/26/2024 11:03 AM CDT Pulse 84 12/26/2024 11:03 AM CDT Temperature 36 C (96.8 F) 12/26/2024 9:43 AM CDT Respiratory Rate 20 12/26/2024 11:03 AM CDT Oxygen Saturation 98% 12/26/2024 11:03 AM CDT Inhaled Oxygen Concentration - - Weight 61.2 kg (135 lb) 12/26/2024 8:17 AM CDT Height 162.6 cm (5' 4) 12/26/2024 8:17 AM CDT Body Mass Index 23.17 12/26/2024 8:17 AM CDT Results * POCT glucose (12/26/2024 9:47 AM CDT) Glucose, POC 197 70 - 199 mg/dL Blood 12/26/2024 9:47 AM CDT 12/26/2024 9:47 AM CDT us Young Vasquez MD LAB POCT ORDERABLES - DEVICE Final Result [facility] [place] [address] * Colonoscopy (12/26/2024 9:16 AM CDT) Anatomical Region Laterality Modality Other Narrative Procedure Note Young Vasquez MD - 12/26/2024 9:16 AM CDT [facility]OS[facility] Patient Name: Brissa Angela Procedure Date: 12/26/2024 9:16 AM Date of : 1995 Admit Type: Outpatient Age: 29 Gender: Female Attending MD: Young Vasquez M.D., Room: [facility] ENDOSCOPY ROOM 8 Note Status: Finalized Procedure: Colonoscopy Indications: Epigastric abdominal pain, Chronic diarrhea,Crohn's disease? Referring MD: Young Vasquez M.D. Providers: Young Vasquez M.D. Medicines: Monitored Anesthesia Care Complications: No immediate complications. Estimated Blood Loss: Estimated blood loss: none. Procedure: Pre-Anesthesia Assessment: - Immediately prior to administration ofmedications, the patient was re-assessed for adequacy to receive sedatives. - The risks and benefits of the procedure and the sedation options and risks were discussed with the patient. All questions were answered and informed consent was obtained. The benefits, risks and alternatives of theprocedure and sedation were discussed and informed consentwas obtained. All questions were answered. Please referto the signed informed consent document in the medical record. The scope was passed under direct vision.The PCF [id number] endoscope was introduced through the anus and advanced to the terminal ileum. The colonoscopy was performed without difficulty. The patient tolerated the procedure well. The qualityof the bowel preparation was adequate to identifypolyps 6 mm and larger in size. The bowel preparation used was GoLYTELY. Findings: The perianal and digital rectal examinations were normal. The terminal ileum appeared normal. Biopsies were taken with a cold forceps for histology. The colon (entire examined portion) appeared normal. Biopsies weretaken with a cold forceps for histology. Impression: - No evidence of ileal or colonic inflammation to suggest Crohn's disaease Recommendation: - Await pathology results. Attending Participation: I was present and participated during the entire procedure, including non-trammell portions. Electronically Signed by Young Vasquez M.D. Young Vasquez M.D. 12/26/2024 9:29:59 AM . Number of Addenda: 0 Note Initiated On: 12/26/2024 9:16 AM Young Vasquez MD ENDOSCOPY PROCEDURES F inal Result * ND AN ELECTIVE ENDOTRACHEAL AIRWAY, ND AN PROCEDURE PLACEHOLDER (12/26/2024 9:02 AM CDT) Narrative Federico Beltran CRNA - 12/26/2024 9:02 AM CDT Federico Beltran CRNA 12/26/2024 9:03 AM Airway Patient location: OR Urgency: elective Indications for airway management: anesthesia Difficult airway: no Staff: Supervising provider: Dylan Frias MD Placed by: LINK TRAINER MAINTENANCE WORKER: Federico Beltran CRNA Emergent airway documentation: Risks and benefits discussed: yes Consent obtained: yes Consent given by: patient Airway prep: Preoxygenated: yes Patient position: sniffing MILS maintained throughout: yes Mask difficulty assessment: 0 - not attempted Sedation level during airway: GA Final airway details: Final airway type: endotracheal airway Tube type: ETT ETT size: 7.0 mm Cuffed: yes Technique used for successful ETT placement: video laryngoscopy Devices/Methods used in placement: stylet Insertion site: oral Blade type: Mari Video blade type: Carbone Blade size: 3 Cormack-Lehane (video): grade IIa - partial view of glottis Initial cuff pressure: 25 cm H2O Cuff volume: 7 mL Cuff inflated with: air ETT to lips: 20 cm Placement verified by: auscultation and CO2 detection Airway secured with: silk tape Number of attempts: 1 us Dylan Frias MD ANESTHESIA ORDERABLES Final Resu lt * Surgical pathology (12/26/2024 9:00 AM CDT) Tissue (Gastric/Stomach biopsy) 12/26/2024 9:00 AM CDT Tissue specimen (specimen) (Gastric/Stomach biopsy) 12/26/2024 9:01 AM CDT Tissue specimen (specimen) (Colon, Biopsy) 12/26/2024 9:23 AM CDT Tissue specimen (specimen) (Colon, Biopsy) 12/26/2024 9:24 AM CDT Tissue specimen (specimen) (Colon, Biopsy) 12/26/2024 9:25 AM CDT Narrative [facility] - 12/27/2024 6:13 PM CDT EPIC results best viewed via link to PDF [facility] [place] [address] Note to Patients: This report may contain a detailed description of human tissue sent by a health care provider to the laboratory for pathologic evaluation. The content of this report is essential for diagnosis and may provide important critical findings. This information may be unfamiliar to patients to review without a medical professional present. It is advised that the patient review this report in the presence of a health care provider who can answer questions and explain the details. SURGICAL PATHOLOGY REPORT FINAL Patient Name: BRISSA ANGELA Gender: F : 1995 (Age: 29) Address: [address] [place] [address] Hospital #: [id number] Taken:12/26/2024 Received:12/26/2024 Reported: 12/27/2024 Patient Type: [facility] Service: Gastro Location: Physician(s): Caesar Ruff M.D. Diagnosis: A. Small intestine, biopsy: - Duodenal mucosa with no significant abnormality. - Negative for intraepithelial lymphocytosis, villous blunting and crypt hyperplasia. B. Stomach, random biopsy: - Antral mucosa with chemical gastritis. - No Helicobacter pylori is seen on H&E stained slides. C. Small intestine, terminal ileum, biopsy: - Ileal mucosa with no significant abnormality. D. Colon, right, biopsy: - Colonic mucosa with no significant abnormality. E. Colon, left, biopsy: - Colonic mucosa with no significant abnormality. 12/27/2024 07:29 By this signature, I attest that the above diagnosis is based upon my personal examination of the slides(and/or other material indicated in the diagnosis). Boyd Magdaleno MD, PHD Report Electronically Reviewed and Signed Out By Boyd Magdaleno MD, PHD 12/27/2024 18:13:20 Kristen Casanova M.D. History: The patient is a 29-year-old woman with T1DM, complicated by ESRD and gastroparesis, and concern for Crohn's disease after she developed a perianal fistula/abscess, prompting endoscopy. Operative procedure: Colonoscopy and upper endoscopy with biopsy. Specimen(s) Received: A: Small bowel biopsies B: Random gastric biopsies C: Terminal ileum biopsies D: Right colon biopsies E: Left colon biopsies Gross Description: Received in five formalin jars labeled with the patient's identifiers. A. Labeled small bowel biopsies and consists of multiple soliman-pink go forward with an aggregate measurement of 0.9 x 0.5 x 0.1 cm fragment(s) of soft tissue measuring. Labeled A1. Jar 0. B. Labeled random gastric biopsies and consists of one soliman-pink fragment(s) of soft tissue measuring 0.5 cm in greatest dimension. Labeled B1. Jar 0. C. Labeled terminal ileum biopsies and consists of two yellow fragment(s) of soft tissue measuring 0.5 cm each in greatest dimension. Labeled C1. Jar 0. D. Labeled right colon biopsies and consists of multiple soliman-yellow fragment(s) of soft tissue with an aggregate measurement of 0.9 x 0.4 x 0.1 cm. Labeled D1. Jar 0. E. Labeled left colon biopsies and consists of two soliman fragment(s) of soft tissue each measuring 0.5 cm in greatest dimension. Labeled E1. Jar 0. [facility]12/26/2024 11:42 PA(s): Samia Gtz By this signature, I attest that the above diagnosis is based upon my personal examination of the slides(and/or other material). Addenda/Procedures The performance characteristics of some immunohistochemical stains, fluorescence in-situ hybridization tests and immunophenotyping by flow cytometry cited in this report (if any) were determined by the Surgical Pathology and Flow Cytometry Departments at [facility] as part of an ongoing quality assurance manager program and in compliance with federally mandated regulations drawn from the Clinical Laboratory Improvement Act of 1988 (CLIA '88). Some of these tests rely on the use of analyte specific reagents and are subject to specific labeling requirements by the US Food and Drug Administration. Such diagnostic tests may only be performed in a facility that is certified by the Department of Health and Human Services as a high complexity laboratory under CLIA '88. The FDA has determined that such clearance or approval is not necessary. This test is used for clinical purposes. It should not be regarded as investigational or for research. Nevertheless, federal rules concerning the medical use of analyte specific reagents require that the following disclaimer be attached to the report: This test was developed and its performance characteristics determined by the Surgical Pathology and Flow Cytometry Departments of [facility]. It has not been cleared or approved by the U. S. Food and Drug Administration. IMAGES AND SCANNED DOCUMENTS, IF INCLUDED, ONLY VIEWABLE IN PDF VERSION OF REPORT us Young Vasquez MD LAB PATHOLOGY ORDERABL ES Final Result PATHOLOGY [facility] 3rd Floor [place], [place] [phone] * EGD (12/26/2024 8:55 AM CDT) Anatomical Region Laterality Modality Other Narrative Procedure Note Young Vasquez MD - 12/26/2024 8:55 AM CDT GI ENDOSCOPY [facility] Patient Name: Brissa Angela Procedure Date: 12/26/2024 8:55 AM Date of : 1995 Admit Type: Outpatient Age: 29 Gender: Female Attending MD: Young Vasquez M.D., Room: [facility] ENDOSCOPY ROOM 8 Note Status: Finalized Procedure: Upper GI endoscopy Indications: Epigastric abdominal pain Referring MD: Young Vasquez M.D. Providers: Young Vasquez M.D., Ethan Blair M.D. Medicines: Monitored Anesthesia Care Complications: No immediate complications. Estimated Blood Loss: Estimated blood loss: none. Procedure: Pre-Anesthesia Assessment: - Immediately prior to administration ofmedications, the patient was re-assessed for adequacy to receive sedatives. The benefits, risks, and alternatives to theprocedure and sedation were discussed and informed consentwas obtained. The scope was passed under direct vision. The [id number] endoscope was introduced through the mouth, and advanced to the second partof duodenum. The upper GI endoscopy was accomplished without difficulty. The patient tolerated the procedure well. Findings: The duodenal bulb, first portion of the duodenum and second portionof the duodenum were normal. Biopsies were taken with a cold forceps for histology. Localized mildly erythematous mucosa without bleeding was found inthe gastric fundus and on the greater curvature of the gastric body. Biopsies were taken with a cold forceps for histology. LA Grade A (one or more mucosal breaks less than 5 mm, not extending between tops of 2 mucosal folds) esophagitis with no bleeding wasfound in the distal esophagus. Impression: - Mild esophagitis - Gastric erythema, biopsied - Normal duodenum, biopsied Recommendation: - Await pathology results. Attending Participation: I was present and participated during the entire procedure, including non-trammell portions. Electronically Signed by Young Vasquez M.D. Young Vasquez M.D. 12/26/2024 9:31:40 AM . Number of Addenda: 0 Note Initiated On: 12/26/2024 8:55 AM us Young Vasquez MD ENDOSCOPY PROCEDURES F inal Result * (ABNORMAL) POCT hCG, urine (12/26/2024 8:43 AM CDT) HCG, ur, POC Negative Negative Lot Number [id number] QC Backgroud Clear Acceptable QC Control Line Acceptable Urine 12/26/2024 8:43 AM CDT Young Vasquez MD POINT OF CARE TEST ORD ERABLES Final Result * POCT glucose (12/26/2024 8:41 AM CDT) Glucose, POC 102 70 - 199 mg/dL Blood 12/26/2024 8:41 AM CDT 12/26/2024 8:41 AM CDT Young Vasquez MD LAB POCT ORDERABLES - DEVICE Final Result Performing Organization Address [facility] Co de Phone Number [facility] [place] [address] * (ABNORMAL) POCT glucose (12/26/2024 7:53 AM CDT) Glucose, POC 67(L) 70 - 199 mg/dL Blood 12/26/2024 7:53 AM CDT 12/26/2024 7:53 AM CDT us Young Vasquez MD LAB POCT ORDERABLES - DEVICE Final Result Performing Organization Address [facility] Co de Phone Number [facility] [place] [address] * (ABNORMAL) eGFR (12/26/2024 7:03 AM CDT) eGFR 8(L) >=60 mL/min/1. 73 m2 Comment: Interpretive Data Reference Interval Normal >/= 90 mL/min/1.73m2 Mildly decreased* 60 - 89 mL/min/1.73m2 Mildly to moderately decreased 45 - 59 mL/min/1.73m2 Moderately to severely decreased 30 - 44 mL/min/1.73m2 Severely decreased 15 - 29 mL/min/1.73m2 Kidney Failure < 15 mL/min/1.73m2 *Relative to young adult level Estimated glomerular filtration rate is determined by the 2020 CKD-EPI equation recommended by the National Kidney [employer] (A Unifying Approach to GFR Estimation: Recommendations of the NKF-ASK Task Force on Reassessing the Inclusion of Race in Diagnosing Kidney Disease, JASN 2020). The CKD-EPI equation should not be used for patients with unstable renal function and has not been validated in children and those over 70. Current interpretive data was last reviewed 2021. Blood 12/26/2024 7:03 AM CDT 12/26/2024 7:04 AM CDT us Young Vasquez MD LAB BLOOD ORDERABLES F inal Result [facility] [place] [address] * (ABNORMAL) Comprehensive metabolic panel (12/26/2024 7:03 AM CDT) Sodium 129(L) 135 - 145 mmol/L Potassium, pl 4.8 3.3 - 4.9 mmol/L [facility] Comment:Hemolyzed; Potassium value may be falsely elevated by as much as 0.6-1.0 mmol/L. Suggest redraw and reanalysis. Chloride 94(L) 97 - 110 mmol/L [facility] CO2 25 22 - 32 mmol/L [facility] Anion gap 10 2 - 15 mmol/L [facility] BUN 18 6 - 25 mg/dL [facility] Creatinine 6.44(H) 0.60 - 1.10 mg/dL [facility] Glucose 110 70 - 199 mg/dL [facility] Comment: Interpretive Data Fasting glucose >/= 126 mg/dl is diagnostic for diabetes. Fasting is defined as no caloric intake for at least 8 hours. Fasting glucose between 100 mg/dl to 125 mg/dl is diagnostic of prediabetes. In a patient with classic symptoms of hyperglycemia or hyperglycemic crisis, a random glucose >/= 200 mg/dl is diagnostic for diabetes. In the absence of unequivocal hyperglycemia, results should be confirmed by repeat testing. The classification and Diagnosis of Diabetes Diabetes Care 202; 46: S19-S40. Current interpretive data was last revised 2022. Calcium 8.2(L) 8.5 - 10.3 mg/dL [facility] Bilirubin, total 0.4 0.1 - 1.2 mg/dL [facility] Protein, pl 7.9 6.5 - 8.5 g/dL [facility] Albumin 3.7 3.5 - 5.0 g/dL [facility] Alk phos 181(H) 40 - 130 Units/L [facility] ALT 18 7 - 45 Units/L [facility] AST 31 10 - 45 Units/L [facility] Comment:Hemolyzed; result ma y be falsely elevated Blood 12/26/2024 7:03 AM CDT 12/26/2024 7:04 AM CDT Young Vasquez MD LAB BLOOD ORDERABLES F inal Result [facility] [place] [address] * CT Abdomen and Pelvis Enterography W Contrast (12/25/2024 1:21 PM CDT) Anatomical Region Laterality Modality Abdomen N/A Computed Tomogra phy 12/25/2024 2:14 PM CDT Impressions 12/25/2024 2:14 PM CDT 1. Distal esophageal thickening consistent with esophagitis. 2. Tree-in-bud nodularity and mild patchy groundglass opacity in the left lower lobe, likely infectious or inflammatory, such as related to aspiration. 3. No evidence of active inflammatory bowel disease within the limitations of suboptimal distention of portions of the small bowel. 4. Suspected splenic infarct. 5. Subcentimeter hepatic and splenic lesions are noted, some of which in the spleen are stable, and some of which are new/more conspicuous. The findings are nonspecific, this could potentially be related to granulomatous disease. If clinically indicated, an MRI could be considered for further evaluation. 6. No perianal abscess. Linear areas of soft tissue thickening in the perianal region likely reflects sequelae of reported perianal fistula. Electronically signed by: Arielle Sharpe M.D. 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 Patient was only able to tolerate one bottle of Citra select due to nausea. COMPARISON: 12/07/2023 FINDINGS: There is tree-in-bud nodularity in the left lower lobe with a small area of volume loss likely related to aspiration. The tip of a central venous catheter terminates low in the right atrium near the level of the tricuspid valve. The heart is normal in size. There is no pericardial effusion. There is distal esophageal thickening circumferentially. There are subcentimeter hypoattenuating foci in hepatic segments 2 and 4 which are too small to characterize, though are new from prior CT August 2023. There are postoperative changes of cholecystectomy. There is mild intrahepatic biliary ductal dilation which is similar to the prior examination. The portal and hepatic veins are patent. There are multiple hypoattenuating foci in the spleen which are subcentimeter and incompletely characterized, some of these is stable from prior and consistent with a benign etiology and some of which are new. There is a wedge-shaped/bandlike area of hypoenhancement within the central aspect of the spleen suspicious for infarct. Adrenal glands and pancreas are normal. Symmetric renal enhancement. Hypoattenuating focus in the left superior kidney too small to characterize. No hydronephrosis. Urinary bladder contains hyperdense fluid, which may be related to delayed excretion of IV contrast from recent prior CT the setting of impaired renal function. The uterus and adnexa are normal. There is trace pelvic free fluid. There is no pneumoperitoneum. There is a gastric stimulator device in place. There is atherosclerosis of the branch visceral vessels as well as external iliac and femoral arteries. Mildly prominent though subcentimeter in short axis pelvic lymph nodes are unchanged from prior. Colon contains hyperdense contrast material. The colon is normal in course and caliber. The terminal ileum is normal. Portions of the small bowel are incompletely distended, though no specific areas of bowel wall thickening or perienteric inflammatory changes noted. There is no bowel obstruction. No suspicious osseous lesion. Diffuse sclerosis of the bones may be related to renal osteodystrophy. There is no drainable perianal collection. There is linear enhancing soft tissue thickening in the right aspect of the perianal region which could reflect sequelae of reported perianal fistula. 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 Patient was only able to tolerate one bottle of Citra select due to nausea. COMPARISON: 12/07/2023 FINDINGS: There is tree-in-bud nodularity in the left lower lobe with a small area of volume loss likely related to aspiration. The tip of a central venous catheter terminates low in the right atrium near the level of the tricuspid valve. The heart is normal in size. There is no pericardial effusion. There is distal esophageal thickening circumferentially. There are subcentimeter hypoattenuating foci in hepatic segments 2 and 4 which are too small to characterize, though are new from prior CT August 2023. There are postoperative changes of cholecystectomy. There is mild intrahepatic biliary ductal dilation which is similar to the prior examination. The portal and hepatic veins are patent. There are multiple hypoattenuating foci in the spleen which are subcentimeter and incompletely characterized, some of these is stable from prior and consistent with a benign etiology and some of which are new. There is a wedge-shaped/bandlike area of hypoenhancement within the central aspect of the spleen suspicious for infarct. Adrenal glands and pancreas are normal. Symmetric renal enhancement. Hypoattenuating focus in the left superior kidney too small to characterize. No hydronephrosis. Urinary bladder contains hyperdense fluid, which may be related to delayed excretion of IV contrast from recent prior CT the setting of impaired renal function. The uterus and adnexa are normal. There is trace pelvic free fluid. There is no pneumoperitoneum. There is a gastric stimulator device in place. There is atherosclerosis of the branch visceral vessels as well as external iliac and femoral arteries. Mildly prominent though subcentimeter in short axis pelvic lymph nodes are unchanged from prior. Colon contains hyperdense contrast material. The colon is normal in course and caliber. The terminal ileum is normal. Portions of the small bowel are incompletely distended, though no specific areas of bowel wall thickening or perienteric inflammatory changes noted. There is no bowel obstruction. No suspicious osseous lesion. Diffuse sclerosis of the bones may be related to renal osteodystrophy. There is no drainable perianal collection. There is linear enhancing soft tissue thickening in the right aspect of the perianal region which could reflect sequelae of reported perianal fistula. IMPRESSION: 1. Distal esophageal thickening consistent with esophagitis. 2. Tree-in-bud nodularity and mild patchy groundglass opacity in the left lower lobe, likely infectious or inflammatory, such as related to aspiration. 3. No evidence of active inflammatory bowel disease within the limitations of suboptimal distention of portions of the small bowel. 4. Suspected splenic infarct. 5. Subcentimeter hepatic and splenic lesions are noted, some of which in the spleen are stable, and some of which are new/more conspicuous. The findings are nonspecific, this could potentially be related to granulomatous disease. If clinically indicated, an MRI could be considered for further evaluation. 6. No perianal abscess. Linear areas of soft tissue thickening in the perianal region likely reflects sequelae of reported perianal fistula. Electronically signed by: Arielle Sharpe M.D. Young Vasquez MD IMG CT PROCEDURES Marli l Result * CT Ankle Right WO Contrast (12/22/2024 12:45 PM CDT) Anatomical Region Laterality Modality Ankle Right Computed Tomogra phy 12/22/2024 1:55 PM CDT Narrative 12/22/2024 2:09 PM CDT EXAM DESCRIPTION: CT ANKLE RIGHT WO CONTRAST; CT FOOT RIGHT WO CONTRAST REASON FOR STUDY: Ankle trauma, fracture, xray done (Age >= 5y), triamalleolar ankle fracture Trimalleolar ankle fracture 1.5 yr. Ago. Flat foot. No sx hx ; Fracture, foot, missed lisfranc fracture/injury, acquired flat foot Trimalleolar ankle fracture 1.5 yr. Ago. Flat foot. No sx hx TECHNIQUE: Multidetector CT scan of the right ankle and right foot was performed. coronal and sagittal images were reconstructed. Dose modulation adjustment of the mA and/or kV has been performed per [facility] protocols according to patient size and indication. COMPARISON: Radiograph dated December 07, 2024 FINDINGS: Bones: There is evidence of a prior distal fibular shaft fracture. There is a old posterior malleolar fracture. Several well corticated fragments are seen adjacent to lateral malleolus. Moderate arthritic changes of the tibiotalar articulation is seen. There is diffuse hindfoot valgus deformity. Moderate arthritic changes of the midfoot is seen most pronounced at the tarsometatarsal articulations. Question old fracture deformity medial navicular Soft Tissues: No soft tissue swelling or foreign body. No fluid collection. Other: No other finding. IMPRESSION: 1. Evidence of prior distal fibular shaft fracture. 2. Old posterior malleolar fracture. 3. Several well corticated fragments adjacent to lateral malleolus. 4. Moderate arthritic changes of the tibiotalar articulation. 5. Diffuse hindfoot valgus deformity. 6. Moderate arthritic changes of the midfoot most pronounced at the tarsometatarsal articulations. 7. Question old fracture deformity medial navicular. THIS IS AN ELECTRONICALLY VERIFIED FINAL REPORT 12/22/2024 2:09 PM - Electronically signed by Mahin CORDOVA T: Report ID: [id number] Reading Location: [id number] Procedure Note Mahin Balderrama MD - 12/22/2024 EXAM DESCRIPTION: CT ANKLE RIGHT WO CONTRAST; CT FOOT RIGHT WO CONTRAST REASON FOR STUDY: Ankle trauma, fracture, xray done (Age >= 5y), triamalleolar ankle fracture Trimalleolar ankle fracture 1.5 yr. Ago. Flat foot. No sx hx ;Fracture, foot, missed lisfranc fracture/injury, acquired flat foot Trimalleolar ankle fracture 1.5 yr. Ago. Flat foot. No sx hx TECHNIQUE: Multidetector CT scan of the right ankle and right foot was performed. coronal and sagittal images were reconstructed. Dose modulation adjustment of the mA and/or kV has been performed per [facility] protocols according to patient size and indication. COMPARISON: Radiograph dated December 07, 2024 FINDINGS: Bones: There is evidence of a prior distal fibular shaftfracture. There is a old posterior malleolar fracture. Several well corticated fragments are seen adjacent to lateral malleolus. Moderate arthriticchanges of the tibiotalar articulation is seen. There is diffuse hindfoot valgus deformity. Moderate arthritic changes of the midfoot is seen mostpronounced at the tarsometatarsal articulations. Question old fracture deformitymedial navicular Soft Tissues: No soft tissue swelling or foreign body. No fluidcollection. Other: No other finding. IMPRESSION: 1. Evidence of prior distal fibular shaft fracture. 2. Old posterior malleolar fracture. 3. Several well corticated fragments adjacent to lateral malleolus. 4. Moderate arthritic changes of the tibiotalar articulation. 5. Diffuse hindfoot valgus deformity. 6. Moderate arthritic changes of the midfoot most pronounced at the tarsometatarsal articulations. 7. Question old fracture deformity medial navicular. THIS IS AN ELECTRONICALLY VERIFIED FINAL REPORT 12/22/2024 2:09 PM - Electronically signed by Mahin CORDOVA T: Report ID: [id number] Reading Location: [place] [address] Raul Clark DO IMG CT PROCEDURES Final Result * CT Foot Right WO Contrast (12/22/2024 12:45 PM CDT) Anatomical Region Laterality Modality Lower Extremities Right Computed Tomog quentin 12/22/2024 1:55 PM CDT Narrative 12/22/2024 2:09 PM CDT EXAM DESCRIPTION: CT ANKLE RIGHT WO CONTRAST; CT FOOT RIGHT WO CONTRAST REASON FOR STUDY: Ankle trauma, fracture, xray done (Age >= 5y), triamalleolar ankle fracture Trimalleolar ankle fracture 1.5 yr. Ago. Flat foot. No sx hx ; Fracture, foot, missed lisfranc fracture/injury, acquired flat foot Trimalleolar ankle fracture 1.5 yr. Ago. Flat foot. No sx hx TECHNIQUE: Multidetector CT scan of the right ankle and right foot was performed. coronal and sagittal images were reconstructed. Dose modulation adjustment of the mA and/or kV has been performed per [facility] protocols according to patient size and indication. COMPARISON: Radiograph dated December 07, 2024 FINDINGS: Bones: There is evidence of a prior distal fibular shaft fracture. There is a old posterior malleolar fracture. Several well corticated fragments are seen adjacent to lateral malleolus. Moderate arthritic changes of the tibiotalar articulation is seen. There is diffuse hindfoot valgus deformity. Moderate arthritic changes of the midfoot is seen most pronounced at the tarsometatarsal articulations. Question old fracture deformity medial navicular Soft Tissues: No soft tissue swelling or foreign body. No fluid collection. Other: No other finding. IMPRESSION: 1. Evidence of prior distal fibular shaft fracture. 2. Old posterior malleolar fracture. 3. Several well corticated fragments adjacent to lateral malleolus. 4. Moderate arthritic changes of the tibiotalar articulation. 5. Diffuse hindfoot valgus deformity. 6. Moderate arthritic changes of the midfoot most pronounced at the tarsometatarsal articulations. 7. Question old fracture deformity medial navicular. THIS IS AN ELECTRONICALLY VERIFIED FINAL REPORT 12/22/2024 2:09 PM - Electronically signed by Mahin CORDOVA T: Report ID: [id number] Reading Location: [id number] Procedure Note Mahin Balderrama MD - 12/22/2024 EXAM DESCRIPTION: CT ANKLE RIGHT WO CONTRAST; CT FOOT RIGHT WO CONTRAST REASON FOR STUDY: Ankle trauma, fracture, xray done (Age >= 5y), triamalleolar ankle fracture Trimalleolar ankle fracture 1.5 yr. Ago. Flat foot. No sx hx ;Fracture, foot, missed lisfranc fracture/injury, acquired flat foot Trimalleolar ankle fracture 1.5 yr. Ago. Flat foot. No sx hx TECHNIQUE: Multidetector CT scan of the right ankle and right foot was performed. coronal and sagittal images were reconstructed. Dose modulation adjustment of the mA and/or kV has been performed per [facility] protocols according to patient size and indication. COMPARISON: Radiograph dated December 07, 2024 FINDINGS: Bones: There is evidence of a prior distal fibular shaftfracture. There is a old posterior malleolar fracture. Several well corticated fragments are seen adjacent to lateral malleolus. Moderate arthriticchanges of the tibiotalar articulation is seen. There is diffuse hindfoot valgus deformity. Moderate arthritic changes of the midfoot is seen mostpronounced at the tarsometatarsal articulations. Question old fracture deformitymedial navicular Soft Tissues: No soft tissue swelling or foreign body. No fluidcollection. Other: No other finding. IMPRESSION: 1. Evidence of prior distal fibular shaft fracture. 2. Old posterior malleolar fracture. 3. Several well corticated fragments adjacent to lateral malleolus. 4. Moderate arthritic changes of the tibiotalar articulation. 5. Diffuse hindfoot valgus deformity. 6. Moderate arthritic changes of the midfoot most pronounced at the tarsometatarsal articulations. 7. Question old fracture deformity medial navicular. THIS IS AN ELECTRONICALLY VERIFIED FINAL REPORT 12/22/2024 2:09 PM - Electronically signed by Mahin CORDOVA T: Report ID: [id number] Reading Location: [place] [address] Raul Clark DO IMG CT PROCEDURES Final Result * SCAN - RADIOLOGY/IMAGING (12/22/2024) Anatomical Region Laterality Modality Other us Edgardo Aldridge MD Edited Result - Final * XR Foot Right 3 or More Views (12/07/2024 1:00 PM CDT) Anatomical Region Laterality Modality Lower Extremities, Foot Right Computed Radiography 12/10/2024 8:38 AM CDT Narrative 12/10/2024 8:43 AM CDT EXAM DESCRIPTION: 1. XR FOOT RIGHT 3 OR MORE VIEWS; 2. XR ANKLE RIGHT 3 OR MORE VIEWS REASON FOR STUDY: pain General pain rt foot and ankle with rt foot turning outward since trimalleolar fx 1 yr ago FINDINGS: Three views right foot and three views right ankle submitted with comparison 11/16/2024. Old healed right ankle fracture. No acute fracture identified. Mild right ankle osteoarthritis. Genu valgus alignment is present. Ankle effusion is present. Polyarticular midfoot osteoarthritis, greatest at the 1st and 2nd tarsometatarsal joints, with dorsal fragmentation at the medial cuneiform. Pes planus alignment is present. Mild hallux valgus with 1st metatarsophalangeal joint osteoarthritis. Arterial atherosclerosis noted. IMPRESSION: 1. Old healed right ankle fracture. No acute fracture identified. 2. Mild right ankle osteoarthritis with genu valgus and an ankle effusion. 3. 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 Findings can be associated with neuropathic arthropathy. 4. Right pes planus alignment. 5. Arterial atherosclerosis, greater than expected for age. This can be correlated with patient medical history. THIS IS AN ELECTRONICALLY VERIFIED FINAL REPORT 12/10/2024 8:43 AM - Electronically signed by Andrei Nguyen M.D. T: Report ID: [id number] Reading Location: [id number] Procedure Note Andrei Nguyen MD - 12/10/2024 EXAM DESCRIPTION: 1. XR FOOT RIGHT 3 OR MORE VIEWS; 2. XR ANKLE RIGHT 3 OR MORE VIEWS REASON FOR STUDY: pain General pain rt foot and ankle with rt foot turning outward sincetrimalleolar fx 1 yr ago FINDINGS: Three views right foot and three views right ankle submittedwith comparison 11/16/2024. Old healed right ankle fracture. No acute fracture identified. Mildright ankle osteoarthritis. Genu valgus alignment is present. Ankle effusionis present. 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 Pes planus alignment is present. Mild hallux valgus with 1st metatarsophalangeal joint osteoarthritis. Arterial atherosclerosis noted. IMPRESSION: 1. Old healed right ankle fracture. No acute fracture identified. 2. Mild right ankle osteoarthritis with genu valgus and an ankleeffusion. 3. 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 Findings can be associated with neuropathic arthropathy. 4. Right pes planus alignment. 5. Arterial atherosclerosis, greater than expected for age. This can be correlated with patient medical history. THIS IS AN ELECTRONICALLY VERIFIED FINAL REPORT 12/10/2024 8:43 AM - Electronically signed by Andrei Nguyen M.D. T: Report ID: [id number] Reading Location: [id number] Raul Clark DO IMG XR PROCEDURES Final Result * XR Ankle Right 3 or More Views (12/07/2024 1:00 PM CDT) Anatomical Region Laterality Modality Lower Extremities, Ankle Right Compute d Radiography 12/10/2024 8:38 AM CDT Narrative 12/10/2024 8:43 AM CDT EXAM DESCRIPTION: 1. XR FOOT RIGHT 3 OR MORE VIEWS; 2. XR ANKLE RIGHT 3 OR MORE VIEWS REASON FOR STUDY: pain General pain rt foot and ankle with rt foot turning outward since trimalleolar fx 1 yr ago FINDINGS: Three views right foot and three views right ankle submitted with comparison 11/16/2024. Old healed right ankle fracture. No acute fracture identified. Mild right ankle osteoarthritis. Genu valgus alignment is present. Ankle effusion is present. Polyarticular midfoot osteoarthritis, greatest at the 1st and 2nd tarsometatarsal joints, with dorsal fragmentation at the medial cuneiform. Pes planus alignment is present. Mild hallux valgus with 1st metatarsophalangeal joint osteoarthritis. Arterial atherosclerosis noted. IMPRESSION: 1. Old healed right ankle fracture. No acute fracture identified. 2. Mild right ankle osteoarthritis with genu valgus and an ankle effusion. 3. 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 Findings can be associated with neuropathic arthropathy. 4. Right pes planus alignment. 5. Arterial atherosclerosis, greater than expected for age. This can be correlated with patient medical history. THIS IS AN ELECTRONICALLY VERIFIED FINAL REPORT 12/10/2024 8:43 AM - Electronically signed by Andrei Nguyen M.D. T: Report ID: [id number] Reading Location: [id number] Procedure Note Andrei Nguyen MD - 12/10/2024 EXAM DESCRIPTION: 1. XR FOOT RIGHT 3 OR MORE VIEWS; 2. XR ANKLE RIGHT 3 OR MORE VIEWS REASON FOR STUDY: pain General pain rt foot and ankle with rt foot turning outward sincetrimalleolar fx 1 yr ago FINDINGS: Three views right foot and three views right ankle submittedwith comparison 11/16/2024. Old healed right ankle fracture. No acute fracture identified. Mildright ankle osteoarthritis. Genu valgus alignment is present. Ankle effusionis present. 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 Pes planus alignment is present. Mild hallux valgus with 1st metatarsophalangeal joint osteoarthritis. Arterial atherosclerosis noted. IMPRESSION: 1. Old healed right ankle fracture. No acute fracture identified. 2. Mild right ankle osteoarthritis with genu valgus and an ankleeffusion. 3. 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 Findings can be associated with neuropathic arthropathy. 4. Right pes planus alignment. 5. Arterial atherosclerosis, greater than expected for age. This can be correlated with patient medical history. THIS IS AN ELECTRONICALLY VERIFIED FINAL REPORT 12/10/2024 8:43 AM - Electronically signed by Andrei Nguyen M.D. T: Report ID: [id number] Reading Location: [id number] Raul Clark DO IMG XR PROCEDURES Final Result * XR Ankle Right 3+ Vw (11/21/2024 5:34 PM CDT) Anatomical Region Laterality Modality Lower Extremities, Ankle Right Radiogr aphic Imaging Edgardo Aldridge MD IMG XR PROCEDURES Final Resul t * XR Outside Reference (11/16/2024 12:05 AM CDT) Narrative RADPAT_MARKELLE - 12/07/2024 1:05 PM CDT This order has been auto-finalized and does not contain a result. Provider Transcribed Order IMG XR PROCEDURES Fin al Result Performing Organization Address City/[facility]/ZIP Co de Phone Number [email or web address] * SCAN - RADIOLOGY/IMAGING (11/16/2024) Anatomical Region Laterality Modality Other Edgardo Aldridge MD Final Result * XR Outside Reference (11/16/2024 12:00 AM CDT) Narrative RADSONJA_[email or web address]_MHE - 12/07/2024 1:05 PM CDT This order has been auto-finalized and does not contain a result. Provider Transcribed Order IMG XR PROCEDURES Fin al Result Performing Organization Address City/[facility]/ZIP Co de Phone Number [email or web address] * CT Chest WO Contrast (11/11/2024) Anatomical Region Laterality Modality Body N/A Computed Tomogra phy [facility] Provider IMG CT PROCEDURES Final R esult * (ABNORMAL) POCT glucose (11/05/2024 7:20 AM CDT) Glucose, POC 366(H) 70 - 199 mg/dL Blood 11/05/2024 7:20 AM CDT 11/05/2024 7:20 AM CDT Dutch Blake MD LAB POCT ORDERABLES - DEVICE Final Result [facility] [place] [address] * POCT glucose (11/05/2024 2:37 AM CDT) Glucose, POC 175 70 - 199 mg/dL Blood 11/05/2024 2:37 AM CDT 11/05/2024 2:37 AM CDT Dutch Blake MD LAB POCT ORDERABLES - DEVICE Final Result Performing Organization Address [facility] de Phone Number [facility] [place] [address] * (ABNORMAL) eGFR (11/04/2024 9:18 PM CDT) eGFR 19(L) >=60 mL/min/1. 73 m2 Comment: Interpretive Data Reference Interval Normal >/= 90 mL/min/1.73m2 Mildly decreased* 60 - 89 mL/min/1.73m2 Mildly to moderately decreased 45 - 59 mL/min/1.73m2 Moderately to severely decreased 30 - 44 mL/min/1.73m2 Severely decreased 15 - 29 mL/min/1.73m2 Kidney Failure < 15 mL/min/1.73m2 *Relative to young adult level Estimated glomerular filtration rate is determined by the 2020 CKD-EPI equation recommended by the National Kidney Foundation (A Unifying Approach to GFR Estimation: Recommendations of the NKF-ASK Task Force on Reassessing the Inclusion of Race in Diagnosing Kidney Disease, JASN 2020). The CKD-EPI equation should not be used for patients with unstable renal function and has not been validated in children and those over 70. Current interpretive data was last reviewed 2021. Blood 11/04/2024 9:18 PM CDT 11/04/2024 10:06 PM CDT us Luciano Hayes MD PhD LAB BLOOD ORDERABLES Final Result [facility] [place] [address] * Differential, auto (11/04/2024 9:18 PM CDT) Neutrophil abs 5.81 1.50 - 6.50 K/cumm Imm gran abs 0.04 0.00 - 0.10 K/cumm [facility] Lymphocyte abs 1.45 0.80 - 3.30 K/cumm [facility] Monocyte abs 0.63 0.20 - 0.80 K/cumm [facility] Eosinophil abs 0.33 0.00 - 0.50 K/cumm [facility] Basophil abs 0.02 0.00 - 0.10 K/cumm [facility] Neutrophil pct 70.2 % [facility] Comment: Interpretive Data Percent cell count reference ranges are not reported, since discordance with absolute values may lead to misinterpretation of CBC data. Current Interpretive Data was last revised on 2017. Imm gran pct 0.5 % [facility] Comment: Interpretive Data Percent cell count reference ranges are not reported, since discordance with absolute values may lead to misinterpretation of CBC data. Current Interpretive Data was last revised on 2017. Lymphocyte pct 17.5 % [facility] Comment: Interpretive Data Percent cell count reference ranges are not reported, since discordance with absolute values may lead to misinterpretation of CBC data. Current Interpretive Data was last revised on 2017. Monocyte pct 7.6 % [facility] Comment: Interpretive Data Percent cell count reference ranges are not reported, since discordance with absolute values may lead to misinterpretation of CBC data. Current Interpretive Data was last revised on 2017. Eosinophil pct 4.0 % [facility] Comment: Interpretive Data Percent cell count reference ranges are not reported, since discordance with absolute values may lead to misinterpretation of CBC data. Current Interpretive Data was last revised on 2017. Basophil pct 0.2 % [facility] Comment: Interpretive Data Percent cell count reference ranges are not reported, since discordance with absolute values may lead to misinterpretation of CBC data. Current Interpretive Data was last revised on 2017. Blood 11/04/2024 9:18 PM CDT 11/04/2024 10:29 PM CDT Luciano Hayes MD PhD LAB BLOOD ORDERABLES Final Result Performing Organization Address City/[facility]/ZIP Co de Phone Number [facility] [place] [address] * (ABNORMAL) CBC with auto differential (11/04/2024 9:18 PM CDT) Pathologist [facility] WBC 8.28 3.80 - 9.90 K/cumm Hgb 8.8(L) 11.9 - 15.5 g/dL [facility] Hct 27.1(L) 35.6 - 45.5 % [facility] Plt 218 150 - 400 K/cumm [facility] MPV 11.1 9.1 - 12.3 fL [facility] RBC 3.15(L) 3.90 - 5.20 M/cumm [facility] MCV 86.0 81.3 - 96.4 fL [facility] MCH 27.9 27.1 - 33.3 pg [facility] MCHC 32.5 32.3 - 35.7 g/dL [facility] RDW CV 16.2(H) 11.1 - 14.9 % [facility] RDW SD 51.3(H) 35.7 - 48.1 fL [facility] NRBC abs 0.00 0.00 - 0.01 K/cumm [facility] Blood 11/04/2024 9:18 PM CDT 11/04/2024 10:29 PM CDT Luciano Hayes MD PhD LAB BLOOD ORDERABLES Final Result Performing Organization Address City/[facility]/ZIP Co de Phone Number [facility] [place] [address] * (ABNORMAL) Basic metabolic panel (11/04/2024 9:18 PM CDT) Sodium 141 135 - 145 mmol/L Potassium, pl 4.2 3.3 - 4.9 mmol/L [facility] Chloride 100 97 - 110 mmol/L [facility] CO2 30 22 - 32 mmol/L [facility] Anion gap 11 2 - 15 mmol/L [facility] BUN 13 6 - 25 mg/dL [facility] Creatinine 3.27(H) 0.60 - 1.10 mg/dL [facility] Glucose 241(H) 70 - 199 mg/dL [facility] Comment: Interpretive Data Fasting glucose >/= 126 mg/dl is diagnostic for diabetes. Fasting is defined as no caloric intake for at least 8 hours. Fasting glucose between 100 mg/dl to 125 mg/dl is diagnostic of prediabetes. In a patient with classic symptoms of hyperglycemia or hyperglycemic crisis, a random glucose >/= 200 mg/dl is diagnostic for diabetes. In the absence of unequivocal hyperglycemia, results should be confirmed by repeat testing. The classification and Diagnosis of Diabetes Diabetes Care 2021; 46: S19-S40. Current interpretive data was last revised 2022. Calcium 8.2(L) 8.5 - 10.3 mg/dL [facility] Blood 11/04/2024 9:18 PM CDT 11/04/2024 10:06 PM CDT us Luciano Hayes MD PhD LAB BLOOD ORDERABLES Final Result [facility] [place] [address] * (ABNORMAL) POCT glucose (11/04/2024 9:16 PM CDT) Glucose, POC 231(H) 70 - 199 mg/dL Blood 11/04/2024 9:16 PM CDT 11/04/2024 9:16 PM CDT us Dutch Blake MD LAB POCT ORDERABLES - DEVICE Final Result [facility] [place] [address] * (ABNORMAL) POCT glucose (11/04/2024 6:50 PM CDT) Glucose, POC 380(H) 70 - 199 mg/dL Blood 11/04/2024 6:50 PM CDT 11/04/2024 6:50 PM CDT us Dutch Blake MD LAB POCT ORDERABLES - DEVICE Final Result Performing Organization Address [facility] [place] [place] [address] * POCT glucose (11/04/2024 3:55 PM CDT) Glucose, POC 184 70 - 199 mg/dL Blood 11/04/2024 3:55 PM CDT 11/04/2024 3:55 PM CDT us Dutch Blake MD LAB POCT ORDERABLES - DEVICE Final Result Performing Organization Address [facility] Co de Phone Number [facility] [place] [address] * POCT glucose (11/04/2024 12:51 PM CDT) Glucose, POC 122 70 - 199 mg/dL Blood 11/04/2024 12:5 1 PM CDT 11/04/2024 12:51 PM CDT us Dutch Blake MD LAB POCT ORDERABLES - DEVICE Final Result Performing Organization Address [facility] Co de Phone Number [facility] [place] [address] * POCT glucose (11/04/2024 7:16 AM CDT) Glucose, POC 107 70 - 199 mg/dL Blood 11/04/2024 7:16 AM CDT 11/04/2024 7:16 AM CDT Dutch Blake MD LAB POCT ORDERABLES - DEVICE Final Result Performing Organization Address City/[facility] Co de Phone Number [facility] [place] [address] * POCT glucose (11/04/2024 2:03 AM CDT) Glucose, POC 145 70 - 199 mg/dL Comment:Glu2: RN/MD Notified Glucose comment 1 Glu2: RN/MD Notified [facility] Blood 11/04/2024 2:03 AM CDT 11/04/2024 2:03 AM CDT us Dutch Blake MD LAB POCT ORDERABLES - DEVICE Final Result Performing Organization Address [facility] Co de Phone Number [facility] [place] [address] * (ABNORMAL) eGFR (11/03/2024 10:59 PM CDT) eGFR 9(L) >=60 mL/min/1. 73 m2 Comment: Interpretive Data Reference Interval Normal >/= 90 mL/min/1.73m2 Mildly decreased* 60 - 89 mL/min/1.73m2 Mildly to moderately decreased 45 - 59 mL/min/1.73m2 Moderately to severely decreased 30 - 44 mL/min/1.73m2 Severely decreased 15 - 29 mL/min/1.73m2 Kidney Failure < 15 mL/min/1.73m2 *Relative to young adult level Estimated glomerular filtration rate is determined by the 2020 CKD-EPI equation recommended by the National Kidney Foundation (A Unifying Approach to GFR Estimation: Recommendations of the NKF-ASK Task Force on Reassessing the Inclusion of Race in Diagnosing Kidney Disease, JASN 2020). The CKD-EPI equation should not be used for patients with unstable renal function and has not been validated in children and those over 70. Current interpretive data was last reviewed 2021. Blood 11/03/2024 10:5 9 PM CDT 11/04/2024 12:06 AM CDT Luciano Hayes MD PhD LAB BLOOD ORDERABLES Final Result [facility] [place] [address] * Differential, auto (11/03/2024 10:59 PM CDT) Neutrophil abs 3.37 1.50 - 6.50 K/cumm Imm gran abs 0.01 0.00 - 0.10 K/cumm [facility] Lymphocyte abs 2.13 0.80 - 3.30 K/cumm [facility] Monocyte abs 0.62 0.20 - 0.80 K/cumm [facility] Eosinophil abs 0.34 0.00 - 0.50 K/cumm [facility] Basophil abs 0.02 0.00 - 0.10 K/cumm [facility] Neutrophil pct 51.9 % [facility] Comment: Interpretive Data Percent cell count reference ranges are not reported, since discordance with absolute values may lead to misinterpretation of CBC data. Current Interpretive Data was last revised on 2017. Imm gran pct 0.2 % [facility] Comment: Interpretive Data Percent cell count reference ranges are not reported, since discordance with absolute values may lead to misinterpretation of CBC data. Current Interpretive Data was last revised on 2017. Lymphocyte pct 32.8 % [facility] Comment: Interpretive Data Percent cell count reference ranges are not reported, since discordance with absolute values may lead to misinterpretation of CBC data. Current Interpretive Data was last revised on 2017. Monocyte pct 9.6 % [facility] Comment: Interpretive Data Percent cell count reference ranges are not reported, since discordance with absolute values may lead to misinterpretation of CBC data. Current Interpretive Data was last revised on 2017. Eosinophil pct 5.2 % [facility] Comment: Interpretive Data Percent cell count reference ranges are not reported, since discordance with absolute values may lead to misinterpretation of CBC data. Current Interpretive Data was last revised on 2017. Basophil pct 0.3 % [facility] Comment: Interpretive Data Percent cell count reference ranges are not reported, since discordance with absolute values may lead to misinterpretation of CBC data. Current Interpretive Data was last revised on 2017. Blood 11/03/2024 10:5 9 PM CDT 11/04/2024 12:07 AM CDT Luciano Hayes MD PhD LAB BLOOD ORDERABLES Final Result [facility] [place] [address] * (ABNORMAL) CBC with auto differential (11/03/2024 10:59 PM CDT) Pathologist [facility] WBC 6.49 3.80 - 9.90 K/cumm Hgb 8.5(L) 11.9 - 15.5 g/dL [facility] Hct 27.2(L) 35.6 - 45.5 % [facility] Plt 219 150 - 400 K/cumm [facility] MPV 11.1 9.1 - 12.3 fL [facility] RBC 3.04(L) 3.90 - 5.20 M/cumm [facility] MCV 89.5 81.3 - 96.4 fL [facility] MCH 28.0 27.1 - 33.3 pg [facility] MCHC 31.3(L) 32.3 - 35.7 g/dL [facility] RDW CV 16.4(H) 11.1 - 14.9 % [facility] RDW SD 53.7(H) 35.7 - 48.1 fL [facility] NRBC abs 0.00 0.00 - 0.01 K/cumm [facility] Blood 11/03/2024 10:5 9 PM CDT 11/04/2024 12:07 AM CDT Luciano Hayes MD PhD LAB BLOOD ORDERABLES Final Result Performing Organization Address City/[facility]/ZIP Co de Phone Number [facility] [place] [address] * (ABNORMAL) Basic metabolic panel (11/03/2024 10:59 PM CDT) Pathologist [facility] Sodium 141 135 - 145 mmol/L Potassium, pl 4.3 3.3 - 4.9 mmol/L [facility] Chloride 103 97 - 110 mmol/L [facility] CO2 28 22 - 32 mmol/L [facility] Anion gap 10 2 - 15 mmol/L [facility] BUN 38(H) 6 - 25 mg/dL [facility] Creatinine 6.03(H) 0.60 - 1.10 mg/dL [facility] Glucose 224(H) 70 - 199 mg/dL [facility] Comment: Interpretive Data Fasting glucose >/= 126 mg/dl is diagnostic for diabetes. Fasting is defined as no caloric intake for at least 8 hours. Fasting glucose between 100 mg/dl to 125 mg/dl is diagnostic of prediabetes. In a patient with classic symptoms of hyperglycemia or hyperglycemic crisis, a random glucose >/= 200 mg/dl is diagnostic for diabetes. In the absence of unequivocal hyperglycemia, results should be confirmed by repeat testing. The classification and Diagnosis of Diabetes Diabetes Care 2021; 46: S19-S40. Current interpretive data was last revised 2022. Calcium 7.9(L) 8.5 - 10.3 mg/dL [facility] Blood 11/03/2024 10:5 9 PM CDT 11/04/2024 12:06 AM CDT us Luciano Hayes MD PhD LAB BLOOD ORDERABLES Final Result Performing Organization Address [facility]/ZIP Co de Phone Number [facility] [place] [address] * (ABNORMAL) POCT glucose (11/03/2024 8:37 PM CDT) Glucose, POC 254(H) 70 - 199 mg/dL Comment:Glu2: RN/MD Notified Glucose comment 1 Glu2: RN/MD Notified [facility] Blood 11/03/2024 8:37 PM CDT 11/03/2024 8:37 PM CDT us Dutch Blake MD LAB POCT ORDERABLES - DEVICE Final Result Performing Organization Address City/[facility] Co de Phone Number [facility] [place] [address] * (ABNORMAL) POCT glucose (11/03/2024 4:17 PM CDT) Glucose, POC 290(H) 70 - 199 mg/dL Blood 11/03/2024 4:17 PM CDT 11/03/2024 4:17 PM CDT Dutch Blake MD LAB POCT ORDERABLES - DEVICE Final Result Performing Organization Address [facility] de Phone Number [facility] [address] * (ABNORMAL) POCT glucose (11/03/2024 11:20 AM CDT) Glucose, POC 222(H) 70 - 199 mg/dL Comment:Glu2: RN/ Notified Glucose comment 1 Glu2: RN/MD Notified [facility] Blood 11/03/2024 11:2 0 AM CDT 11/03/2024 11:20 AM CDT us Dutch Blake MD LAB POCT ORDERABLES - DEVICE Final Result Performing Organization Address City/[facility] Co de Phone Number [facility] [place] [address] * (ABNORMAL) POCT glucose (11/03/2024 9:35 AM CDT) Glucose, POC 224(H) 70 - 199 mg/dL Blood 11/03/2024 9:35 AM CDT 11/03/2024 9:35 AM CDT Dutch Blake MD LAB POCT ORDERABLES - DEVICE Final Result Performing Organization Address City/[facility] Co de Phone Number [facility] [place] [address] * (ABNORMAL) POCT glucose (11/03/2024 8:21 AM CDT) Glucose, POC 64(L) 70 - 199 mg/dL Blood 11/03/2024 8:21 AM CDT 11/03/2024 8:21 AM CDT Dutch Blake MD LAB POCT ORDERABLES - DEVICE Final Result Performing Organization Address [facility] de Phone Number [facility] [place] [address] * POCT glucose (11/03/2024 7:21 AM CDT) Glucose, POC 125 70 - 199 mg/dL Blood 11/03/2024 7:21 AM CDT 11/03/2024 7:21 AM CDT Dutch Blake MD LAB POCT ORDERABLES - DEVICE Final Result Performing Organization Address [facility] de Phone Number [facility] [place] [address] * (ABNORMAL) POCT glucose (11/03/2024 6:49 AM CDT) Glucose, POC 231(H) 70 - 199 mg/dL Blood 11/03/2024 6:49 AM CDT 11/03/2024 6:49 AM CDT Dutch Blake MD LAB POCT ORDERABLES - DEVICE Final Result Performing Organization Address [facility] Co de Phone Number [facility] [place] [address] * (ABNORMAL) POCT glucose (11/03/2024 5:37 AM CDT) Glucose, POC 467(C) 70 - 199 mg/dL Comment: Glu2: RN/MD Notified Critical Value Noted Glucose comment 1 Glu2: RN/MD Notified [facility] Glucose comment 2 Critical Value Noted [facility] Blood 11/03/2024 5:37 AM CDT 11/03/2024 5:37 AM CDT Dutch Blake MD LAB POCT ORDERABLES - DEVICE Final Result Performing Organization Address [facility] Co de Phone Number [facility] [place] [address] * (ABNORMAL) POCT glucose (11/03/2024 3:39 AM CDT) Glucose, POC 536(C) 70 - 199 mg/dL Comment: Glu2: Critical Value Noted RN/MD Notified Glucose comment 2 RN/MD Notified [facility] Blood 11/03/2024 3:39 AM CDT 11/03/2024 3:39 AM CDT Dutch Blake MD LAB POCT ORDERABLES - DEVICE Final Result Performing Organization Address [facility] Co de Phone Number [facility] [place] [address] * (ABNORMAL) eGFR (11/03/2024 2:25 AM CDT) eGFR 14(L) >=60 mL/min/1. 73 m2 Comment: Interpretive Data Reference Interval Normal >/= 90 mL/min/1.73m2 Mildly decreased* 60 - 89 mL/min/1.73m2 Mildly to moderately decreased 45 - 59 mL/min/1.73m2 Moderately to severely decreased 30 - 44 mL/min/1.73m2 Severely decreased 15 - 29 mL/min/1.73m2 Kidney Failure < 15 mL/min/1.73m2 *Relative to young adult level Estimated glomerular filtration rate is determined by the 2020 CKD-EPI equation recommended by the National Kidney Foundation (A Unifying Approach to GFR Estimation: Recommendations of the NKF-ASK Task Force on Reassessing the Inclusion of Race in Diagnosing Kidney Disease, JASN 2020). The CKD-EPI equation should not be used for patients with unstable renal function and has not been validated in children and those over 70. Current interpretive data was last reviewed 2021. Blood 11/03/2024 2:25 AM CDT 11/03/2024 4:02 AM CDT Luciano Hayes MD PhD LAB BLOOD ORDERABLES Final Result [facility] [place] [address] * Differential, auto (11/03/2024 2:25 AM CDT) Pathologist [facility] Neutrophil abs 3.18 1.50 - 6.50 K/cumm Imm gran abs 0.02 0.00 - 0.10 K/cumm [facility] Lymphocyte abs 1.48 0.80 - 3.30 K/cumm [facility] Monocyte abs 0.57 0.20 - 0.80 K/cumm [facility] Eosinophil abs 0.21 0.00 - 0.50 K/cumm [facility] Basophil abs 0.01 0.00 - 0.10 K/cumm [facility] Neutrophil pct 58.1 % [facility] Comment: Interpretive Data Percent cell count reference ranges are not reported, since discordance with absolute values may lead to misinterpretation of CBC data. Current Interpretive Data was last revised on 2017. Imm gran pct 0.4 % [facility] Comment: Interpretive Data Percent cell count reference ranges are not reported, since discordance with absolute values may lead to misinterpretation of CBC data. Current Interpretive Data was last revised on 2017. Lymphocyte pct 27.1 % [facility] Comment: Interpretive Data Percent cell count reference ranges are not reported, since discordance with absolute values may lead to misinterpretation of CBC data. Current Interpretive Data was last revised on 2017. Monocyte pct 10.4 % [facility] Comment: Interpretive Data Percent cell count reference ranges are not reported, since discordance with absolute values may lead to misinterpretation of CBC data. Current Interpretive Data was last revised on 2017. Eosinophil pct 3.8 % [facility] Comment: Interpretive Data Percent cell count reference ranges are not reported, since discordance with absolute values may lead to misinterpretation of CBC data. Current Interpretive Data was last revised on 2017. Basophil pct 0.2 % [facility] Comment: Interpretive Data Percent cell count reference ranges are not reported, since discordance with absolute values may lead to misinterpretation of CBC data. Current Interpretive Data was last revised on 2017. Blood 11/03/2024 2:25 AM CDT 11/03/2024 4:01 AM CDT Luciano Hayes MD PhD LAB BLOOD ORDERABLES Final Result [facility] [place] [address] * Critical Result Callback Chemistry (11/03/2024 2:25 AM CDT) Pathologist [facility] Date Notified [id number] Time Notified 435 HERBER JIMENEZ TestName Glucose HERBER JIMENEZ Called/Read Back Aaron JIMENEZ Credentials RN HERBER JIM[facility]Z Called By [email or web address] JIMENEZ Blood 11/03/2024 2:25 AM CDT 11/03/2024 4:02 AM CDT Luciano Hayes MD PhD LAB BLOOD ORDERABLES Final Result Performing Organization Address [facility] Co de Phone Number [facility] [place] [address] * (ABNORMAL) CBC with auto differential (11/03/2024 2:25 AM CDT) [facility] WBC 5.47 3.80 - 9.90 K/cumm Hgb 8.9(L) 11.9 - 15.5 g/dL [facility] Hct 28.5(L) 35.6 - 45.5 % [facility] Plt 233 150 - 400 K/cumm [facility] MPV 10.9 9.1 - 12.3 fL [facility] RBC 3.23(L) 3.90 - 5.20 M/cumm [facility] MCV 88.2 81.3 - 96.4 fL [facility] MCH 27.6 27.1 - 33.3 pg [facility] MCHC 31.2(L) 32.3 - 35.7 g/dL [facility] RDW CV 16.4(H) 11.1 - 14.9 % [facility] RDW SD 53.1(H) 35.7 - 48.1 fL [facility] NRBC abs 0.00 0.00 - 0.01 K/cumm [facility] Blood 11/03/2024 2:25 AM CDT 11/03/2024 4:01 AM CDT Luciano Hayes MD PhD LAB BLOOD ORDERABLES Final Result Performing Organization Address [facility] Co de Phone Number [facility] [place] [address] * (ABNORMAL) Basic metabolic panel (11/03/2024 2:25 AM CDT) Pathologist [facility] Sodium 135 135 - 145 mmol/L Comment:Sample investigated and found to be analytically accurate. If results do not match clinical presentation, improper collection (e.g., IV fluid contamination, improper tube type, mislabel) should be considered and re-collection recommended. Potassium, pl 4.7 3.3 - 4.9 mmol/L [facility] Comment:Sample investigated and found to be analytically accurate. If results do not match clinical presentation, improper collection (e.g., IV fluid contamination, improper tube type, mislabel) should be considered and re-collection recommended. Chloride 95(L) 97 - 110 mmol/L [facility] Comment:Sample investigated and found to be analytically accurate. If results do not match clinical presentation, improper collection (e.g., IV fluid contamination, improper tube type, mislabel) should be considered and re-collection recommended. CO2 29 22 - 32 mmol/L [facility] Comment:Sample investigated and found to be analytically accurate. If results do not match clinical presentation, improper collection (e.g., IV fluid contamination, improper tube type, mislabel) should be considered and re-collection recommended. Anion gap 11 2 - 15 mmol/L [facility] Comment:Sample investigated and found to be analytically accurate. If results do not match clinical presentation, improper collection (e.g., IV fluid contamination, improper tube type, mislabel) should be considered and re-collection recommended. BUN 21 6 - 25 mg/dL [facility] Comment:Sample investigated and found to be analytically accurate. If results do not match clinical presentation, improper collection (e.g., IV fluid contamination, improper tube type, mislabel) should be considered and re-collection recommended. Creatinine 4.22(H) 0.60 - 1.10 mg/dL [facility] Comment:Sample investigated and found to be analytically accurate. If results do not match clinical presentation, improper collection (e.g., IV fluid contamination, improper tube type, mislabel) should be considered and re-collection recommended. Glucose 700(C) 70 - 199 mg/dL [facility] Comment: Sample investigated and found to be analytically accurate. If results do not match clinical presentation, improper collection (e.g., IV fluid contamination, improper tube type, mislabel) should be considered and re-collection recommended. Reviewed Interpretive Data Fasting glucose >/= 126 mg/dl is diagnostic for diabetes. Fasting is defined as no caloric intake for at least 8 hours. Fasting glucose between 100 mg/dl to 125 mg/dl is diagnostic of prediabetes. In a patient with classic symptoms of hyperglycemia or hyperglycemic crisis, a random glucose >/= 200 mg/dl is diagnostic for diabetes. In the absence of unequivocal hyperglycemia, results should be confirmed by repeat testing. The classification and Diagnosis of Diabetes Diabetes Care 2021; 46: S19-S40. Current interpretive data was last revised 2022. Calcium 7.4(L) 8.5 - 10.3 mg/dL [facility] Comment:Sample investigated and found to be analytically accurate. If results do not match clinical presentation, improper collection (e.g., IV fluid contamination, improper tube type, mislabel) should be considered and re-collection recommended. Blood 11/03/2024 2:25 AM CDT 11/03/2024 4:02 AM CDT us Luciano Hayes MD PhD LAB BLOOD ORDERABLES Final Result Performing Organization Address [facility] Co de Phone Number [facility] [place] [address] * (ABNORMAL) POCT glucose (11/03/2024 2:03 AM CDT) Glucose, POC >600(C) 70 - 199 mg/dL Comment:Glu2: KADY/ Notified Glucose comment 1 Glu2: RN/ Notified [facility] Blood 11/03/2024 2:03 AM CDT 11/03/2024 2:03 AM CDT Dutch Blake MD LAB POCT ORDERABLES - DEVICE Final Result Performing Organization Address [facility] Co de Phone Number [facility] [place] [address] * (ABNORMAL) POCT glucose (11/02/2024 8:42 PM CDT) Glucose, POC 204(H) 70 - 199 mg/dL Comment:Glu2: RN/MD Notified Glucose comment 1 Glu2: RN/MD Notified [facility] Blood 11/02/2024 8:42 PM CDT 11/02/2024 8:42 PM CDT us Dutch Blake MD LAB POCT ORDERABLES - DEVICE Final Result Performing Organization Address [facility] Co de Phone Number [facility] [address] * (ABNORMAL) POCT glucose (11/02/2024 6:19 PM CDT) Glucose, POC 236(H) 70 - 199 mg/dL Blood 11/02/2024 6:19 PM CDT 11/02/2024 6:19 PM CDT us Dutch Blake MD LAB POCT ORDERABLES - DEVICE Final Result Performing Organization Address [facility] Co de Phone Number [facility] [place] [address] * (ABNORMAL) POCT glucose (11/02/2024 12:54 PM CDT) Glucose, POC 281(H) 70 - 199 mg/dL Blood 11/02/2024 12:5 4 PM CDT 11/02/2024 12:54 PM CDT Dutch Blake MD LAB POCT ORDERABLES - DEVICE Final Result Performing Organization Address [facility] Co de Phone Number [facility] [place] [address] * Post Dialysis BUN (11/02/2024 11:27 AM CDT) BUN Post 9 6 - 25 mg/dL Blood 11/02/2024 11:2 7 AM CDT 11/02/2024 12:06 PM CDT [facility] LAB BLOOD ORDERABLES Marli l Result Performing Organization Address [facility] de Phone Number [facility] [place] [address] * (ABNORMAL) Pre Dialysis BUN (11/02/2024 8:37 AM CDT) BUN Pre 37(H) 6 - 25 mg/dL Blood 11/02/2024 8:37 AM CDT 11/02/2024 8:49 AM CDT [facility] LAB BLOOD ORDERABLES Marli l Result Performing Organization Address [facility] de Phone Number [facility] [address] * POCT glucose (11/02/2024 7:39 AM CDT) Glucose, POC 198 70 - 199 mg/dL Blood 11/02/2024 7:39 AM CDT 11/02/2024 7:39 AM CDT Dutch Blake MD LAB POCT ORDERABLES - DEVICE Final Result Performing Organization Address [facility] de Phone Number [facility] [place] [address] * (ABNORMAL) POCT glucose (11/02/2024 3:12 AM CDT) Glucose, POC 268(H) 70 - 199 mg/dL Blood 11/02/2024 3:12 AM CDT 11/02/2024 3:12 AM CDT Dutch Blake MD LAB POCT ORDERABLES - DEVICE Final Result Performing Organization Address [facility] de Phone Number [facility] [place] [address] * (ABNORMAL) eGFR (11/01/2024 9:45 PM CDT) Pathologist [facility] eGFR 9(L) >=60 mL/min/1. 73 m2 Comment: Interpretive Data Reference Interval Normal >/= 90 mL/min/1.73m2 Mildly decreased* 60 - 89 mL/min/1.73m2 Mildly to moderately decreased 45 - 59 mL/min/1.73m2 Moderately to severely decreased 30 - 44 mL/min/1.73m2 Severely decreased 15 - 29 mL/min/1.73m2 Kidney Failure < 15 mL/min/1.73m2 *Relative to young adult level Estimated glomerular filtration rate is determined by the 2020 CKD-EPI equation recommended by the National Kidney Foundation (A Unifying Approach to GFR Estimation: Recommendations of the NKF-ASK Task Force on Reassessing the Inclusion of Race in Diagnosing Kidney Disease, JASN 2020). The CKD-EPI equation should not be used for patients with unstable renal function and has not been validated in children and those over 70. Current interpretive data was last reviewed 2021. Blood 11/01/2024 9:45 PM CDT 11/01/2024 10:31 PM CDT Luciano Hayes MD PhD LAB BLOOD ORDERABLES Final Result Performing Organization Address [facility] Co de Phone Number [facility] [place] [address] * Differential, auto (11/01/2024 9:45 PM CDT) Neutrophil abs 2.74 1.50 - 6.50 K/cumm Imm gran abs 0.01 0.00 - 0.10 K/cumm [facility] Lymphocyte abs 1.86 0.80 - 3.30 K/cumm [facility] Monocyte abs 0.71 0.20 - 0.80 K/cumm [facility] Eosinophil abs 0.17 0.00 - 0.50 K/cumm [facility] Basophil abs 0.02 0.00 - 0.10 K/cumm [facility] Neutrophil pct 49.6 % [facility] Comment: Interpretive Data Percent cell count reference ranges are not reported, since discordance with absolute values may lead to misinterpretation of CBC data. Current Interpretive Data was last revised on 2017. Imm gran pct 0.2 % [facility] Comment: Interpretive Data Percent cell count reference ranges are not reported, since discordance with absolute values may lead to misinterpretation of CBC data. Current Interpretive Data was last revised on 2017. Lymphocyte pct 33.8 % [facility] Comment: Interpretive Data Percent cell count reference ranges are not reported, since discordance with absolute values may lead to misinterpretation of CBC data. Current Interpretive Data was last revised on 2017. Monocyte pct 12.9 % [facility] Comment: Interpretive Data Percent cell count reference ranges are not reported, since discordance with absolute values may lead to misinterpretation of CBC data. Current Interpretive Data was last revised on 2017. Eosinophil pct 3.1 % [facility] Comment: Interpretive Data Percent cell count reference ranges are not reported, since discordance with absolute values may lead to misinterpretation of CBC data. Current Interpretive Data was last revised on 2017. Basophil pct 0.4 % [facility] Comment: Interpretive Data Percent cell count reference ranges are not reported, since discordance with absolute values may lead to misinterpretation of CBC data. Current Interpretive Data was last revised on 2017. Blood 11/01/2024 9:45 PM CDT 11/01/2024 10:31 PM CDT us Luciano Hayes MD PhD LAB BLOOD ORDERABLES Final Result HER[facility] JIMENE[facility] [place] [address] * (ABNORMAL) CBC with auto differential (11/01/2024 9:45 PM CDT) WBC 5.51 3.80 - 9.90 K/cumm Hgb 9.0(L) 11.9 - 15.5 g/dL [facility] Hct 28.1(L) 35.6 - 45.5 % [facility] Plt 286 150 - 400 K/cumm [facility] MPV 11.0 9.1 - 12.3 fL [facility] RBC 3.28(L) 3.90 - 5.20 M/cumm [facility] MCV 85.7 81.3 - 96.4 fL [facility] MCH 27.4 27.1 - 33.3 pg [facility] MCHC 32.0(L) 32.3 - 35.7 g/dL [facility] RDW CV 16.4(H) 11.1 - 14.9 % [facility] RDW SD 50.9(H) 35.7 - 48.1 fL [facility] NRBC abs 0.00 0.00 - 0.01 K/cumm [facility] Blood 11/01/2024 9:45 PM CDT 11/01/2024 10:31 PM CDT Luciano Hayes MD PhD LAB BLOOD ORDERABLES Final Result [facility] [place] [address] * (ABNORMAL) Basic metabolic panel (11/01/2024 9:45 PM CDT) Sodium 142 135 - 145 mmol/L Potassium, pl 3.9 3.3 - 4.9 mmol/L [facility] Chloride 102 97 - 110 mmol/L [facility] CO2 27 22 - 32 mmol/L [facility] Anion gap 13 2 - 15 mmol/L [facility] BUN 36(H) 6 - 25 mg/dL [facility] Creatinine 6.00(H) 0.60 - 1.10 mg/dL [facility] Glucose 197 70 - 199 mg/dL [facility] Comment: Interpretive Data Fasting glucose >/= 126 mg/dl is diagnostic for diabetes. Fasting is defined as no caloric intake for at least 8 hours. Fasting glucose between 100 mg/dl to 125 mg/dl is diagnostic of prediabetes. In a patient with classic symptoms of hyperglycemia or hyperglycemic crisis, a random glucose >/= 200 mg/dl is diagnostic for diabetes. In the absence of unequivocal hyperglycemia, results should be confirmed by repeat testing. The classification and Diagnosis of Diabetes Diabetes Care 2021; 46: S19-S40. Current interpretive data was last revised 2022. Calcium 6.9(L) 8.5 - 10.3 mg/dL [facility] Blood 11/01/2024 9:45 PM CDT 11/01/2024 10:31 PM CDT us Luciano Hayes MD PhD LAB BLOOD ORDERABLES Final Result Performing Organization Address [facility] de Phone Number [facility] [place] [address] * POCT glucose (11/01/2024 9:30 PM CDT) Glucose, POC 184 70 - 199 mg/dL Blood 11/01/2024 9:30 PM CDT 11/01/2024 9:30 PM CDT Dutch Blake MD LAB POCT ORDERABLES - DEVICE Final Result Performing Organization Address [facility] de Phone Number [facility] [place] [address] * POCT glucose (11/01/2024 4:50 PM CDT) Glucose, POC 130 70 - 199 mg/dL Comment:Glu2: RN/MD Notified Glucose comment 1 Glu2: RN/MD Notified [facility] Blood 11/01/2024 4:50 PM CDT 11/01/2024 4:50 PM CDT Dutch Blake MD LAB POCT ORDERABLES - DEVICE Final Result Performing Organization Address [facility]/State/ZIP Co de Phone Number [facility] [address] * (ABNORMAL) POCT glucose (11/01/2024 11:49 AM CDT) Glucose, POC 201(H) 70 - 199 mg/dL Comment:Glu2: RN/ Notified Glucose comment 1 Glu2: RN/MD Notified [facility] Blood 11/01/2024 11:4 9 AM CDT 11/01/2024 11:49 AM CDT us Dutch Blake MD LAB POCT ORDERABLES - DEVICE Final Result Performing Organization Address [facility] Co de Phone Number [facility] [place] [address] * (ABNORMAL) POCT glucose (11/01/2024 8:12 AM CDT) Glucose, POC 338(H) 70 - 199 mg/dL Comment:Glu2: KADY/ Notified Glucose comment 1 Glu2: RN/ Notified [facility] Blood 11/01/2024 8:12 AM CDT 11/01/2024 8:12 AM CDT us Dutch Blake MD LAB POCT ORDERABLES - DEVICE Final Result Performing Organization Address [facility] Co de Phone Number [facility] [address] * (ABNORMAL) POCT glucose (11/01/2024 1:38 AM CDT) Glucose, POC 232(H) 70 - 199 mg/dL Comment:Glu2: RN/ Notified Glucose comment 1 Glu2: RN/ Notified [facility] Blood 11/01/2024 1:38 AM CDT 11/01/2024 1:38 AM CDT Dutch Blake MD LAB POCT ORDERABLES - DEVICE Final Result Performing Organization Address [facility] Co de Phone Number [facility] [place] [address] * (ABNORMAL) eGFR (10/31/2024 11:30 PM CDT) eGFR 14(L) >=60 mL/min/1. 73 m2 Comment: Interpretive Data Reference Interval Normal >/= 90 mL/min/1.73m2 Mildly decreased* 60 - 89 mL/min/1.73m2 Mildly to moderately decreased 45 - 59 mL/min/1.73m2 Moderately to severely decreased 30 - 44 mL/min/1.73m2 Severely decreased 15 - 29 mL/min/1.73m2 Kidney Failure < 15 mL/min/1.73m2 *Relative to young adult level Estimated glomerular filtration rate is determined by the 2020 CKD-EPI equation recommended by the National Kidney Foundation (A Unifying Approach to GFR Estimation: Recommendations of the NKF-ASK Task Force on Reassessing the Inclusion of Race in Diagnosing Kidney Disease, JASN 2020). The CKD-EPI equation should not be used for patients with unstable renal function and has not been validated in children and those over 70. Current interpretive data was last reviewed 2021. Blood 10/31/2024 11:3 0 PM CDT 10/31/2024 11:56 PM CDT us Luciano Hayes MD PhD LAB BLOOD ORDERABLES Final Result Performing Organization Address [facility]/ZIP Co de Phone Number [facility] [place] [address] * (ABNORMAL) Differential, auto (10/31/2024 11:30 PM CDT) Neutrophil abs 7.04(H) 1.50 - 6.50 K/cumm Imm gran abs 0.03 0.00 - 0.10 K/cumm [facility] Lymphocyte abs 0.83 0.80 - 3.30 K/cumm [facility] Monocyte abs 0.28 0.20 - 0.80 K/cumm [facility] Eosinophil abs 0.09 0.00 - 0.50 K/cumm [facility] Basophil abs 0.02 0.00 - 0.10 K/cumm [facility] Neutrophil pct 84.9 % [facility] Comment: Interpretive Data Percent cell count reference ranges are not reported, since discordance with absolute values may lead to misinterpretation of CBC data. Current Interpretive Data was last revised on 2017. Imm gran pct 0.4 % [facility] Comment: Interpretive Data Percent cell count reference ranges are not reported, since discordance with absolute values may lead to misinterpretation of CBC data. Current Interpretive Data was last revised on 2017. Lymphocyte pct 10.0 % [facility] Comment: Interpretive Data Percent cell count reference ranges are not reported, since discordance with absolute values may lead to misinterpretation of CBC data. Current Interpretive Data was last revised on 2017. Monocyte pct 3.4 % [facility] Comment: Interpretive Data Percent cell count reference ranges are not reported, since discordance with absolute values may lead to misinterpretation of CBC data. Current Interpretive Data was last revised on 2017. Eosinophil pct 1.1 % [facility] Comment: Interpretive Data Percent cell count reference ranges are not reported, since discordance with absolute values may lead to misinterpretation of CBC data. Current Interpretive Data was last revised on 2017. Basophil pct 0.2 % [facility] Comment: Interpretive Data Percent cell count reference ranges are not reported, since discordance with absolute values may lead to misinterpretation of CBC data. Current Interpretive Data was last revised on 2017. Blood 10/31/2024 11:3 0 PM CDT 10/31/2024 11:57 PM CDT Luciano Hayes MD PhD LAB BLOOD ORDERABLES Final Result [facility] [place] [address] * (ABNORMAL) CBC with auto differential (10/31/2024 11:30 PM CDT) [facility] WBC 8.29 3.80 - 9.90 K/cumm Hgb 10.4(L) 11.9 - 15.5 g/dL [facility] Hct 31.4(L) 35.6 - 45.5 % [facility] Plt 304 150 - 400 K/cumm [facility] MPV 11.2 9.1 - 12.3 fL [facility] RBC 3.72(L) 3.90 - 5.20 M/cumm [facility] MCV 84.4 81.3 - 96.4 fL [facility] MCH 28.0 27.1 - 33.3 pg [facility] MCHC 33.1 32.3 - 35.7 g/dL [facility] RDW CV 16.2(H) 11.1 - 14.9 % [facility] RDW SD 50.7(H) 35.7 - 48.1 fL [facility] NRBC abs 0.00 0.00 - 0.01 K/cumm [facility] Blood 10/31/2024 11:3 0 PM CDT 10/31/2024 11:57 PM CDT Luciano Hayes MD PhD LAB BLOOD ORDERABLES Final Result [facility] [place] [address] * (ABNORMAL) Basic metabolic panel (10/31/2024 11:30 PM CDT) [facility] Sodium 137 135 - 145 mmol/L Potassium, pl 3.8 3.3 - 4.9 mmol/L [facility] Chloride 97 97 - 110 mmol/L [facility] CO2 25 22 - 32 mmol/L [facility] Anion gap 15 2 - 15 mmol/L [facility] BUN 20 6 - 25 mg/dL [facility] Creatinine 4.28(H) 0.60 - 1.10 mg/dL [facility] Glucose 230(H) 70 - 199 mg/dL [facility] Comment: Interpretive Data Fasting glucose >/= 126 mg/dl is diagnostic for diabetes. Fasting is defined as no caloric intake for at least 8 hours. Fasting glucose between 100 mg/dl to 125 mg/dl is diagnostic of prediabetes. In a patient with classic symptoms of hyperglycemia or hyperglycemic crisis, a random glucose >/= 200 mg/dl is diagnostic for diabetes. In the absence of unequivocal hyperglycemia, results should be confirmed by repeat testing. The classification and Diagnosis of Diabetes Diabetes Care 2021; 46: S19-S40. Current interpretive data was last revised 2022. Calcium 7.8(L) 8.5 - 10.3 mg/dL [facility] Blood 10/31/2024 11:3 0 PM CDT 10/31/2024 11:56 PM CDT Luciano Hayes MD PhD LAB BLOOD ORDERABLES Final Result Performing Organization Address [facility] Co de Phone Number [facility] [place] [address] * POCT glucose (10/31/2024 8:07 PM CDT) Glucose, POC 191 70 - 199 mg/dL Blood 10/31/2024 8:07 PM CDT 10/31/2024 8:07 PM CDT Dutch Blake MD LAB POCT ORDERABLES - DEVICE Final Result Performing Organization Address [facility] Co de Phone Number [facility] [place] [address] * POCT glucose (10/31/2024 5:26 PM CDT) Glucose, POC 108 70 - 199 mg/dL Blood 10/31/2024 5:26 PM CDT 10/31/2024 5:26 PM CDT Dutch Blake MD LAB POCT ORDERABLES - DEVICE Final Result Performing Organization Address [facility]/ZIP Co de Phone Number [facility] [place] [address] * POCT glucose (10/31/2024 1:18 PM CDT) Glucose, POC 96 70 - 199 mg/dL Blood 10/31/2024 1:18 PM CDT 10/31/2024 1:18 PM CDT us Dutch Blake MD LAB POCT ORDERABLES - DEVICE Final Result Performing Organization Address [facility] Co de Phone Number [facility] [place] [address] * Hepatitis B Surface Antigen Blood (10/31/2024 9:31 AM CDT) HepBsAg Nonreactive Nonreactive Blood 10/31/2024 9:31 AM CDT 10/31/2024 9:57 AM CDT us Francisco Middleton DO LAB MICROBIOLOGY - GENERA L ORDERABLES Final Result Performing Organization Address [facility] Co de Phone Number [facility] [place] [address] * POCT glucose (10/31/2024 7:50 AM CDT) Glucose, POC 79 70 - 199 mg/dL Comment:Glu2: RN/MD Notified Glucose comment 1 Glu2: RN/MD Notified [facility] Blood 10/31/2024 7:50 AM CDT 10/31/2024 7:50 AM CDT us Dutch Blake MD LAB POCT ORDERABLES - DEVICE Final Result Performing Organization Address City/[facility]/ZIP Co de Phone Number [facility] [place] [address] * POCT glucose (10/31/2024 1:56 AM CDT) Glucose, POC 87 70 - 199 mg/dL Blood 10/31/2024 1:56 AM CDT 10/31/2024 1:56 AM CDT Dutch Blake MD LAB POCT ORDERABLES - DEVICE Final Result Performing Organization Address City/[facility] Co de Phone Number [facility] [place] [address] * (ABNORMAL) eGFR (10/30/2024 9:57 PM CDT) Pathologist [facility] eGFR 8(L) >=60 mL/min/1. 73 m2 Comment: Interpretive Data Reference Interval Normal >/= 90 mL/min/1.73m2 Mildly decreased* 60 - 89 mL/min/1.73m2 Mildly to moderately decreased 45 - 59 mL/min/1.73m2 Moderately to severely decreased 30 - 44 mL/min/1.73m2 Severely decreased 15 - 29 mL/min/1.73m2 Kidney Failure < 15 mL/min/1.73m2 *Relative to young adult level Estimated glomerular filtration rate is determined by the 2020 CKD-EPI equation recommended by the National Kidney Foundation (A Unifying Approach to GFR Estimation: Recommendations of the NKF-ASK Task Force on Reassessing the Inclusion of Race in Diagnosing Kidney Disease, JASN 2020). The CKD-EPI equation should not be used for patients with unstable renal function and has not been validated in children and those over 70. Current interpretive data was last reviewed 2021. Blood 10/30/2024 9:57 PM CDT 10/30/2024 10:39 PM CDT us Luciano Hayes MD PhD LAB BLOOD ORDERABLES Final Result Performing Organization Address City/[facility]/ZIP Co de Phone Number [facility] [place] [address] * Differential, auto (10/30/2024 9:57 PM CDT) Neutrophil abs 2.96 1.50 - 6.50 K/cumm Imm gran abs 0.02 0.00 - 0.10 K/cumm [facility] Lymphocyte abs 2.18 0.80 - 3.30 K/cumm [facility] Monocyte abs 0.55 0.20 - 0.80 K/cumm [facility] Eosinophil abs 0.29 0.00 - 0.50 K/cumm [facility] Basophil abs 0.03 0.00 - 0.10 K[facility] Neutrophil pct 49.1 % [facility] Comment: Interpretive Data Percent cell count reference ranges are not reported, since discordance with absolute values may lead to misinterpretation of CBC data. Current Interpretive Data was last revised on 2017. Imm gran pct 0.3 % [facility] Comment: Interpretive Data Percent cell count reference ranges are not reported, since discordance with absolute values may lead to misinterpretation of CBC data. Current Interpretive Data was last revised on 2017. Lymphocyte pct 36.2 % [facility] Comment: Interpretive Data Percent cell count reference ranges are not reported, since discordance with absolute values may lead to misinterpretation of CBC data. Current Interpretive Data was last revised on 2017. Monocyte pct 9.1 % [facility] Comment: Interpretive Data Percent cell count reference ranges are not reported, since discordance with absolute values may lead to misinterpretation of CBC data. Current Interpretive Data was last revised on 2017. Eosinophil pct 4.8 % [facility] Comment: Interpretive Data Percent cell count reference ranges are not reported, since discordance with absolute values may lead to misinterpretation of CBC data. Current Interpretive Data was last revised on 2017. Basophil pct 0.5 % [facility] Comment: Interpretive Data Percent cell count reference ranges are not reported, since discordance with absolute values may lead to misinterpretation of CBC data. Current Interpretive Data was last revised on 2017. Blood 10/30/2024 9:57 PM CDT 10/30/2024 10:39 PM CDT Luciano Hayes MD PhD LAB BLOOD ORDERABLES Final Result [facility] [place] [address] * Beta-hydroxybutyrate (10/30/2024 9:57 PM CDT) [facility] Beta-Hydroxybut yrate 0.1 0.0 - 0.5 mmol/L Blood 10/30/2024 9:57 PM CDT 10/30/2024 10:28 PM CDT Luciano Hayes MD PhD LAB BLOOD ORDERABLES Edited Result - Final Performing Organization Address City/[facility]/ZIP Co de Phone Number [facility] [place] [address] * (ABNORMAL) CBC with auto differential (10/30/2024 9:57 PM CDT) [facility] WBC 6.03 3.80 - 9.90 K/cumm Hgb 8.9(L) 11.9 - 15.5 g/dL [facility] Hct 27.6(L) 35.6 - 45.5 % [facility] Plt 277 150 - 400 K/cumm [facility] MPV 11.0 9.1 - 12.3 fL [facility] RBC 3.17(L) 3.90 - 5.20 M/cumm [facility] MCV 87.1 81.3 - 96.4 fL [facility] MCH 28.1 27.1 - 33.3 pg [facility] MCHC 32.2(L) 32.3 - 35.7 g/dL [facility] RDW CV 16.4(H) 11.1 - 14.9 % [facility] RDW SD 52.3(H) 35.7 - 48.1 fL [facility] NRBC abs 0.00 0.00 - 0.01 K/cumm [facility] Blood 10/30/2024 9:57 PM CDT 10/30/2024 10:39 PM CDT Luciano Hayes MD PhD LAB BLOOD ORDERABLES Final Result Performing Organization Address City/[facility]/ZIP Co de Phone Number [facility] [place] [address] * (ABNORMAL) Basic metabolic panel (10/30/2024 9:57 PM CDT) [facility] Sodium 138 135 - 145 mmol/L Potassium, pl 4.2 3.3 - 4.9 mmol/L [facility] Chloride 100 97 - 110 mmol/L [facility] CO2 26 22 - 32 mmol/L [facility] Anion gap 12 2 - 15 mmol/L [facility] BUN 45(H) 6 - 25 mg/dL [facility] Creatinine 6.91(H) 0.60 - 1.10 mg/dL [facility] Glucose 252(H) 70 - 199 mg/dL [facility] Comment: Interpretive Data Fasting glucose >/= 126 mg/dl is diagnostic for diabetes. Fasting is defined as no caloric intake for at least 8 hours. Fasting glucose between 100 mg/dl to 125 mg/dl is diagnostic of prediabetes. In a patient with classic symptoms of hyperglycemia or hyperglycemic crisis, a random glucose >/= 200 mg/dl is diagnostic for diabetes. In the absence of unequivocal hyperglycemia, results should be confirmed by repeat testing. The classification and Diagnosis of Diabetes Diabetes Care 2021; 46: S19-S40. Current interpretive data was last revised 2022. Calcium 8.1(L) 8.5 - 10.3 mg/dL [facility] Blood 10/30/2024 9:57 PM CDT 10/30/2024 10:39 PM CDT us Luciano Hayes MD PhD LAB BLOOD ORDERABLES Final Result Performing Organization Address [facility]/ZIP Co de Phone Number [facility] [place] [address] * (ABNORMAL) POCT glucose (10/30/2024 8:29 PM CDT) Glucose, POC 361(H) 70 - 199 mg/dL Comment:Glu2: RN/MD Notified Glucose comment 1 Glu2: RN/MD Notified [facility] Blood 10/30/2024 8:29 PM CDT 10/30/2024 8:29 PM CDT Dennis Cadet MD LAB POCT ORDERABLES - DEV ICE Final Result [facility] [place] [address] * (ABNORMAL) POCT glucose (10/30/2024 5:10 PM CDT) Glucose, POC 292(H) 70 - 199 mg/dL Blood 10/30/2024 5:10 PM CDT 10/30/2024 5:10 PM CDT Dennis Cadet MD LAB POCT ORDERABLES - DEV ICE Final Result Performing Organization Address City/[facility] Co de Phone Number [facility] [place] [address] * (ABNORMAL) POCT glucose (10/30/2024 1:08 PM CDT) Glucose, POC 251(H) 70 - 199 mg/dL Blood 10/30/2024 1:08 PM CDT 10/30/2024 1:08 PM CDT Luciano Hayes MD PhD LAB POCT ORDERABLES - DEVIC E Final Result Performing Organization Address City/[facility] Co de Phone Number [facility] [place] [address] * (ABNORMAL) POCT glucose (10/30/2024 11:19 AM CDT) Glucose, POC 270(H) 70 - 199 mg/dL Blood 10/30/2024 11:1 9 AM CDT 10/30/2024 11:19 AM CDT Luciano Hayes MD PhD LAB POCT ORDERABLES - DEVIC E Final Result Performing Organization Address City/[facility]/ZIP Co de Phone Number [facility] [place] [address] * (ABNORMAL) eGFR (10/30/2024 9:10 AM CDT) Pathologist [facility] eGFR 10(L) >=60 mL/min/1. 73 m2 Comment: Interpretive Data Reference Interval Normal >/= 90 mL/min/1.73m2 Mildly decreased* 60 - 89 mL/min/1.73m2 Mildly to moderately decreased 45 - 59 mL/min/1.73m2 Moderately to severely decreased 30 - 44 mL/min/1.73m2 Severely decreased 15 - 29 mL/min/1.73m2 Kidney Failure < 15 mL/min/1.73m2 *Relative to young adult level Estimated glomerular filtration rate is determined by the 2020 CKD-EPI equation recommended by the National Kidney Foundation (A Unifying Approach to GFR Estimation: Recommendations of the NKF-ASK Task Force on Reassessing the Inclusion of Race in Diagnosing Kidney Disease, JASN 2020). The CKD-EPI equation should not be used for patients with unstable renal function and has not been validated in children and those over 70. Current interpretive data was last reviewed 2021. Blood 10/30/2024 9:10 AM CDT 10/30/2024 9:27 AM CDT us Crystal Schuster MD LAB BLOOD ORDERABLES Fi nal Result Performing Organization Address City/[facility]/ZIP Co de Phone Number [facility] [place] [address] * (ABNORMAL) Beta-hydroxybutyrate (10/30/2024 9:10 AM CDT) Pathologist [facility] Beta-Hydroxybut yrate 0.6(H) 0.0 - 0.5 mmol/L Blood 10/30/2024 9:10 AM CDT 10/30/2024 9:23 AM CDT us Dennis Cadet MD LAB BLOOD ORDERABLES Marli l Result [facility] [place] [address] * (ABNORMAL) Basic metabolic panel (10/30/2024 9:10 AM CDT) [facility] Sodium 139 135 - 145 mmol/L Potassium, pl 4.7 3.3 - 4.9 mmol/L [facility] Comment:Hemolyzed; Potassium value may be falsely elevated by as much as 0.6-1.0 mmol/L. Suggest redraw and reanalysis. Chloride 102 97 - 110 mmol/L [facility] CO2 24 22 - 32 mmol/L [facility] Anion gap 13 2 - 15 mmol/L [facility] BUN 37(H) 6 - 25 mg/dL [facility] Creatinine 5.68(H) 0.60 - 1.10 mg/dL [facility] Glucose 214(H) 70 - 199 mg/dL [facility] Comment: Interpretive Data Fasting glucose >/= 126 mg/dl is diagnostic for diabetes. Fasting is defined as no caloric intake for at least 8 hours. Fasting glucose between 100 mg/dl to 125 mg/dl is diagnostic of prediabetes. In a patient with classic symptoms of hyperglycemia or hyperglycemic crisis, a random glucose >/= 200 mg/dl is diagnostic for diabetes. In the absence of unequivocal hyperglycemia, results should be confirmed by repeat testing. The classification and Diagnosis of Diabetes Diabetes Care 202; 46: S19-S40. Current interpretive data was last revised 2022. Calcium 7.9(L) 8.5 - 10.3 mg/dL [facility] Blood 10/30/2024 9:10 AM CDT 10/30/2024 9:27 AM CDT Crystal Schuster MD LAB BLOOD ORDERABLES Fi nal Result Performing Organization Address City/[facility] Co de Phone Number [facility] [address] * POCT glucose (10/30/2024 8:07 AM CDT) Glucose, POC 172 70 - 199 mg/dL Blood 10/30/2024 8:07 AM CDT 10/30/2024 8:07 AM CDT Luciano Hayes MD PhD LAB POCT ORDERABLES - DEVIC E Final Result Performing Organization Address [facility] Co de Phone Number [facility] [place] [address] * POCT glucose (10/30/2024 6:31 AM CDT) Glucose, POC 173 70 - 199 mg/dL Blood 10/30/2024 6:31 AM CDT 10/30/2024 6:31 AM CDT Dennis Cadet MD LAB POCT ORDERABLES - DEV ICE Final Result Performing Organization Address [facility] Co de Phone Number [facility] [place] [address] * POCT glucose (10/30/2024 4:02 AM CDT) Glucose, POC 88 70 - 199 mg/dL Blood 10/30/2024 4:02 AM CDT 10/30/2024 4:02 AM CDT Dennis Cadet MD LAB POCT ORDERABLES - DEV ICE Final Result Performing Organization Address [facility] Co de Phone Number [facility] [place] [address] * POCT glucose (10/30/2024 2:30 AM CDT) Glucose, POC 95 70 - 199 mg/dL Blood 10/30/2024 2:30 AM CDT 10/30/2024 2:30 AM CDT us Dennis Cadet MD LAB POCT ORDERABLES - DEV ICE Final Result [facility] [place] [address] * (ABNORMAL) eGFR (10/30/2024 2:24 AM CDT) eGFR 10(L) >=60 mL/min/1. 73 m2 Comment: Interpretive Data Reference Interval Normal >/= 90 mL/min/1.73m2 Mildly decreased* 60 - 89 mL/min/1.73m2 Mildly to moderately decreased 45 - 59 mL/min/1.73m2 Moderately to severely decreased 30 - 44 mL/min/1.73m2 Severely decreased 15 - 29 mL/min/1.73m2 Kidney Failure < 15 mL/min/1.73m2 *Relative to young adult level Estimated glomerular filtration rate is determined by the 2020 CKD-EPI equation recommended by the National Kidney Foundation (A Unifying Approach to GFR Estimation: Recommendations of the NKF-ASK Task Force on Reassessing the Inclusion of Race in Diagnosing Kidney Disease, JASN 2020). The CKD-EPI equation should not be used for patients with unstable renal function and has not been validated in children and those over 70. Current interpretive data was last reviewed 2021. Blood 10/30/2024 2:24 AM CDT 10/30/2024 2:43 AM CDT us Crystal Schuster MD LAB BLOOD ORDERABLES Fi nal Result Performing Organization Address City/[facility]/ZIP Co de Phone Number [facility] [place] [address] * (ABNORMAL) Differential, auto (10/30/2024 2:24 AM CDT) Neutrophil abs 7.45(H) 1.50 - 6.50 K/cumm Imm gran abs 0.03 0.00 - 0.10 K/cumm [facility] Lymphocyte abs 2.30 0.80 - 3.30 K/cumm [facility] Monocyte abs 0.93(H) 0.20 - 0.80 K/cumm [facility] Eosinophil abs 0.09 0.00 - 0.50 K/cumm [facility] Basophil abs 0.03 0.00 - 0.10 K/cumm [facility] Neutrophil pct 68.8 % [facility] Comment: Interpretive Data Percent cell count reference ranges are not reported, since discordance with absolute values may lead to misinterpretation of CBC data. Current Interpretive Data was last revised on 2017. Imm gran pct 0.3 % [facility] Comment: Interpretive Data Percent cell count reference ranges are not reported, since discordance with absolute values may lead to misinterpretation of CBC data. Current Interpretive Data was last revised on 2017. Lymphocyte pct 21.2 % [facility] Comment: Interpretive Data Percent cell count reference ranges are not reported, since discordance with absolute values may lead to misinterpretation of CBC data. Current Interpretive Data was last revised on 2017. Monocyte pct 8.6 % [facility] Comment: Interpretive Data Percent cell count reference ranges are not reported, since discordance with absolute values may lead to misinterpretation of CBC data. Current Interpretive Data was last revised on 2017. Eosinophil pct 0.8 % [facility] Comment: Interpretive Data Percent cell count reference ranges are not reported, since discordance with absolute values may lead to misinterpretation of CBC data. Current Interpretive Data was last revised on 2017. Basophil pct 0.3 % [facility] Comment: Interpretive Data Percent cell count reference ranges are not reported, since discordance with absolute values may lead to misinterpretation of CBC data. Current Interpretive Data was last revised on 2017. Blood 10/30/2024 2:24 AM CDT 10/30/2024 2:44 AM CDT Sandra Eddy MD LAB BLOOD ORDERABLES Final Resul t Performing Organization Address [facility] de Phone Number [facility] [place] [address] * (ABNORMAL) CBC with auto differential (10/30/2024 2:24 AM CDT) WBC 10.83(H) 3.80 - 9.90 K/cumm Hgb 9.3(L) 11.9 - 15.5 g/dL [facility] Hct 28.7(L) 35.6 - 45.5 % [facility] Plt 292 150 - 400 K/cumm [facility] MPV 11.0 9.1 - 12.3 fL [facility] RBC 3.34(L) 3.90 - 5.20 M/cumm [facility] MCV 85.9 81.3 - 96.4 fL [facility] MCH 27.8 27.1 - 33.3 pg [facility] MCHC 32.4 32.3 - 35.7 g/dL [facility] RDW CV 16.9(H) 11.1 - 14.9 % [facility] RDW SD 52.8(H) 35.7 - 48.1 fL [facility] NRBC abs 0.00 0.00 - 0.01 K/cumm [facility] Blood 10/30/2024 2:24 AM CDT 10/30/2024 2:44 AM CDT us Sandra Eddy MD LAB BLOOD ORDERABLES Final Resul t Performing Organization Address [facility] Co de Phone Number [facility] [place] [address] * (ABNORMAL) Hemoglobin A1c (10/30/2024 2:24 AM CDT) Hgb A1C 8.8(H) 4.0 - 5.6 % Estimated Average Glucose 206 mg/dL [facility] Comment: The ADA recommends reporting an estimated Average Glucose (eAG) with all Hemoglobin A1c results using the equation derived from a study of 507 normal and diabetic adults. Minority populations were underrepresented and children were not included. (Diabetes Care 2020; 43(S1): S66-S76). The eAG is not equivalent to a fasting glucose. Blood 10/30/2024 2:24 AM CDT 10/30/2024 2:48 AM CDT Dennis Cadet MD LAB BLOOD ORDERABLES Marli l Result Performing Organization Address City/[facility]/ZIP Co de Phone Number [facility] [employer] [place], [place] [id number] * Blood gas, venous (10/30/2024 2:24 AM CDT) pH, Venous 7.34 7.32 - 7.43 PCO2, Venous 50 40 - 50 mmHg [facility] PO2, Venous 41 mmHg [facility] Comment: Interpretive Data No Reference Range Established Current Interpretive Data was last revised on 2017. HCO3 Venous, Calculated 28 20 - 30 mmol/L [facility] BE, venous 1 mmol/L [facility] Comment: Interpretive Data No Reference Range Established Current Interpretive Data was last revised on 2017. Blood 10/30/2024 2:24 AM CDT 10/30/2024 2:31 AM CDT Crystal Schuster MD LAB BLOOD ORDERABLES Fi nal Result Performing Organization Address [facility]/ZIP Co de Phone Number [facility] [place] [address] * (ABNORMAL) Basic metabolic panel (10/30/2024 2:24 AM CDT) Sodium 143 135 - 145 mmol/L Potassium, pl 3.6 3.3 - 4.9 mmol/L [facility] Chloride 106 97 - 110 mmol/L [facility] CO2 28 22 - 32 mmol/L [facility] Anion gap 9 2 - 15 mmol/L [facility] BUN 35(H) 6 - 25 mg/dL [facility] Creatinine 5.56(H) 0.60 - 1.10 mg/dL [facility] Glucose 112 70 - 199 mg/dL [facility] Comment: Interpretive Data Fasting glucose >/= 126 mg/dl is diagnostic for diabetes. Fasting is defined as no caloric intake for at least 8 hours. Fasting glucose between 100 mg/dl to 125 mg/dl is diagnostic of prediabetes. In a patient with classic symptoms of hyperglycemia or hyperglycemic crisis, a random glucose >/= 200 mg/dl is diagnostic for diabetes. In the absence of unequivocal hyperglycemia, results should be confirmed by repeat testing. The classification and Diagnosis of Diabetes Diabetes Care 2021; 46: S19-S40. Current interpretive data was last revised 2022. Calcium 7.8(L) 8.5 - 10.3 mg/dL [facility] Blood 10/30/2024 2:24 AM CDT 10/30/2024 2:43 AM CDT us Crystal Schuster MD LAB BLOOD ORDERABLES Fi nal Result Performing Organization Address City/[facility]/ZIP Co de Phone Number [facility] [place] [address] * POCT glucose (10/30/2024 12:01 AM CDT) [facility] Glucose, POC 181 70 - 199 mg/dL Blood 10/30/2024 12:0 1 AM CDT 10/30/2024 12:01 AM CDT us Dennis Cadet MD LAB POCT ORDERABLES - DEV ICE Final Result Performing Organization Address City/[facility]/ZIP Co de Phone Number [facility] [place] [address] * (ABNORMAL) POCT glucose (10/29/2024 10:01 PM CDT) Glucose, POC 297(H) 70 - 199 mg/dL Blood 10/29/2024 10:0 1 PM CDT 10/29/2024 10:01 PM CDT Dennis Cadet MD LAB POCT ORDERABLES - DEV ICE Final Result Performing Organization Address City/[facility] Co de Phone Number [facility] [place] [address] * (ABNORMAL) POCT glucose (10/29/2024 8:26 PM CDT) Glucose, POC 290(H) 70 - 199 mg/dL Blood 10/29/2024 8:26 PM CDT 10/29/2024 8:26 PM CDT Dennis Cadet MD LAB POCT ORDERABLES - DEV ICE Final Result Performing Organization Address City/[facility] Co de Phone Number [facility] [place] [address] * (ABNORMAL) eGFR (10/29/2024 8:13 PM CDT) eGFR 11(L) >=60 mL/min/1. 73 m2 Comment: Interpretive Data Reference Interval Normal >/= 90 mL/min/1.73m2 Mildly decreased* 60 - 89 mL/min/1.73m2 Mildly to moderately decreased 45 - 59 mL/min/1.73m2 Moderately to severely decreased 30 - 44 mL/min/1.73m2 Severely decreased 15 - 29 mL/min/1.73m2 Kidney Failure < 15 mL/min/1.73m2 *Relative to young adult level Estimated glomerular filtration rate is determined by the 2020 CKD-EPI equation recommended by the National Kidney Foundation (A Unifying Approach to GFR Estimation: Recommendations of the NKF-ASK Task Force on Reassessing the Inclusion of Race in Diagnosing Kidney Disease, JASN 2020). The CKD-EPI equation should not be used for patients with unstable renal function and has not been validated in children and those over 70. Current interpretive data was last reviewed 2021. Blood 10/29/2024 8:13 PM CDT 10/29/2024 8:27 PM CDT us Ari Us MD LAB BLOOD ORDERABLES Final R esult [facility] [place] [address] * Lipid panel (10/29/2024 8:13 PM CDT) Cholesterol 124 30 - 199 mg/dL Comment: Interpretive Data Ages < or = 19 years Acceptable: <170 mg/dL Borderline high: 170-199 mg/dL High: >or= 200 mg/dL Ages > or = 20 years Desirable: <200 mg/dL Borderline high: 200-239 mg/dL High: >or= 240 mg/dL Literature References: 1. Expert Panel on Integrated Guidelines for Cardiovascular Health and Risk Reduction in Children and Adolescents. Pediatrics 2011;128:S213 2. NCEP Expert Panel. Circulation 2004;110:227 Current Interpretive Data was last revised on 2017. Triglycerides 92 <=149 mg/dL [facility] Comment: Interpretive Data Ages < or = 9 years Acceptable: <75 mg/dL Borderline high: 75-99 mg/dL High: >or= 100 mg/dL Ages 10 to 20 years Acceptable: <90 mg/dL Borderline high: 90-129 mg/dL High: >or= 130 mg/dL Ages > or = 20 years Desirable: <150 mg/dL Borderline high: 150-199 mg/dL High: 200-499 mg/dL Very high: >or= 499 mg/dL Literature References: 1. Expert Panel on Integrated Guidelines for Cardiovascular Health and Risk Reduction in Children and Adolescents. Pediatrics 2011;128:S213 2. NCEP Expert Panel. Circulation 2004;110:227 Current Interpretive Data was last revised on 2017. HDL 49 >=40 mg/dL [facility] Comment: Interpretive Data Ages < or = 19 years Acceptable: >45 mg/dL Borderline low: 40-45 mg/dL Low: <40 mg/dL Ages > or = 20 years Desirable: >or= 60 mg/dL Low: <40 mg/dL Literature References: 1. Expert Panel on Integrated Guidelines for Cardiovascular Health and Risk Reduction in Children and Adolescents. Pediatrics 2011;128:S213 2. NCEP Expert Panel. Circulation 2004;110:227 Current Interpretive Data was last revised on 2017. LDL, calculated 58 <=129 mg/dL [facility] Comment: Interpretive Data Ages < or = 19 years Acceptable: <110 mg/dL Borderline high: 110-129 mg/dL High: >or= 130 mg/dL Ages > or = 20 years Optimal: <100 mg/dL Near optimal: 100-129 mg/dL Borderline high: 130-159 mg/dL High: >160 mg/dL Calculated using the Giovanni LDL-C estimating equation. This equation was implemented on 2023. Prior to this date LDL-C was estimated using the Friedewald equation. Literature References: 1. Expert Panel on Integrated Guidelines for Cardiovascular Health and Risk Reduction in Children and Adolescents. Pediatrics 2011;128:S213 2. NCEP Expert Panel. Circulation 2004;110:227 3. Giovanni Lucas et al. CARLOS Cardiol. 2020 August 17;5(5):540-548. doi: 10.1001/[email or web address] Current Interpretive Data was last revised on 2023. Non-HDL Cholesterol 75 mg/dL [facility] Comment: Interpretive Data Ages < or = 19 years Acceptable: <120 mg/dL Borderline high: 120-144 mg/dL High: >145 mg/dL Ages > or = 20 years When triglycerides are >200 mg/dL, Non-HDL cholesterol is a secondary target of therapy with treatment goals that are 30 mg/dL greater than the LDL cholesterol target. Literature References: 1. Expert Panel on Integrated Guidelines for Cardiovascular Health and Risk Reduction in Children and Adolescents. Pediatrics 2011;128:S213 2. NCEP Expert Panel. Circulation 2004;110:227 Current Interpretive Data was last revised on 2017. Chol/HDL ratio 3 [facility] Blood 10/29/2024 8:13 PM CDT 10/29/2024 8:27 PM CDT us Dennis Cadet MD LAB BLOOD ORDERABLES Marli l Result [facility] [place] [address] * (ABNORMAL) Basic metabolic panel (10/29/2024 8:13 PM CDT) Pathologist [facility] Sodium 143 135 - 145 mmol/L Potassium, pl 4.1 3.3 - 4.9 mmol/L [facility] Chloride 102 97 - 110 mmol/L [facility] CO2 23 22 - 32 mmol/L [facility] Anion gap 18(H) 2 - 15 mmol/L [facility] BUN 31(H) 6 - 25 mg/dL [facility] Creatinine 5.00(H) 0.60 - 1.10 mg/dL [facility] Glucose 266(H) 70 - 199 mg/dL [facility] Comment: Interpretive Data Fasting glucose >/= 126 mg/dl is diagnostic for diabetes. Fasting is defined as no caloric intake for at least 8 hours. Fasting glucose between 100 mg/dl to 125 mg/dl is diagnostic of prediabetes. In a patient with classic symptoms of hyperglycemia or hyperglycemic crisis, a random glucose >/= 200 mg/dl is diagnostic for diabetes. In the absence of unequivocal hyperglycemia, results should be confirmed by repeat testing. The classification and Diagnosis of Diabetes Diabetes Care 2021; 46: S19-S40. Current interpretive data was last revised 2022. Calcium 7.7(L) 8.5 - 10.3 mg/dL [facility] Blood 10/29/2024 8:13 PM CDT 10/29/2024 8:27 PM CDT us Ari Us MD LAB BLOOD ORDERABLES Final R esult Performing Organization Address [facility]/ZIP Co de Phone Number [facility] [place] [address] * (ABNORMAL) POCT glucose (10/29/2024 4:00 PM CDT) Glucose, POC 290(H) 70 - 199 mg/dL Comment:Glu2: RN/MD Notified Glucose comment 1 Glu2: RN/MD Notified [facility] Blood 10/29/2024 4:00 PM CDT 10/29/2024 4:00 PM CDT us Ciaran Medina MD LAB POCT ORDERABLES - DEVICE Final Result Performing Organization Address City/[facility]/ZIP Co de Phone Number [facility] [place] [address] * (ABNORMAL) POCT glucose (10/29/2024 12:58 PM CDT) Glucose, POC 299(H) 70 - 199 mg/dL Blood 10/29/2024 12:5 8 PM CDT 10/29/2024 12:58 PM CDT us Nathan Moore MD LAB POCT ORDERABLES - DE VICE Final Result Performing Organization Address [facility] Co de Phone Number [facility] [place] [address] * (ABNORMAL) POCT glucose (10/29/2024 11:55 AM CDT) Glucose, POC 309(H) 70 - 199 mg/dL Comment:Glu2: RN/ Notified Glucose comment 1 Glu2: RN/MD Notified [facility] Blood 10/29/2024 11:5 5 AM CDT 10/29/2024 11:55 AM CDT us Nathan Moore MD LAB POCT ORDERABLES - DE VICE Final Result Performing Organization Address City/[facility] Co de Phone Number [facility] [place] [address] * XR Chest PA Lateral 2 Views (If patient hemodynamically stable and ambulatory) (10/29/2024 11:49 AMCDT) Anatomical Region Laterality Modality Body, Chest N/A Computed Radiogr aphy 10/29/2024 12:0 7 PM CDT Impressions 10/29/2024 12:09 PM CDT Comparison is made to chest radiograph of 06/24/2024. There is a right internal jugular approach central venous catheter with tip projecting over the right atrium. There is a left internal jugular approach chest wall port in place with tip projecting over the superior vena cava. Patient is rotated. No pulmonary consolidation or edema. No pleural effusion or pneumothorax. Cardiac mediastinal silhouette is within normal limits. Dictated by: Kevin Richardson M.D. The radiology attending physician has personally reviewed this study, and had reviewed and/or edited this written report and agrees with it. Electronically signed by: Damon Crook M.D. Narrative 10/29/2024 12:09 PM CDT EXAMINATION: 2 view chest radiograph Procedure Note Damon Crook MD - 10/29/2024 EXAMINATION: 2 view chest radiograph IMPRESSION: Comparison is made to chest radiograph of 06/24/2024. There is a right internal jugular approach central venous catheter with tip projecting over the right atrium. There is a left internal jugular approach chest wall port in place with tip projecting over the superior vena cava. Patient is rotated. No pulmonary consolidation or edema. No pleural effusion or pneumothorax. Cardiac mediastinal silhouette is within normal limits. Dictated by: Kevin Richardson M.D. The radiology attending physician has personally reviewed this study, and had reviewed and/or edited this written report and agrees with it. Electronically signed by: Damon Crook M.D. us Nathan Moore MD IMG XR PROCEDURES Final Result * POCT lactate (10/29/2024 11:14 AM CDT) Lactate POC i-STAT 1.6 0.7 - 2.0 mmol/L Blood 10/29/2024 11:1 4 AM CDT 10/29/2024 11:14 AM CDT us Nathan Moore MD LAB POCT ORDERABLES - DE VICE Final Result Performing Organization Address City/[facility]/ZIP Co de Phone Number [facility] [address] * Potassium, whole blood (10/29/2024 11:03 AM CDT) Potassium, bld 4.2 3.3 - 4.9 mmol/L Blood 10/29/2024 11:0 3 AM CDT 10/29/2024 11:15 AM CDT us Ari Us MD LAB BLOOD ORDERABLES Final R esult Performing Organization Address [facility] Co de Phone Number [facility] [place] [address] * (ABNORMAL) eGFR (10/29/2024 11:03 AM CDT) eGFR 12(L) >=60 mL/min/1. 73 m2 Comment: Interpretive Data Reference Interval Normal >/= 90 mL/min/1.73m2 Mildly decreased* 60 - 89 mL/min/1.73m2 Mildly to moderately decreased 45 - 59 mL/min/1.73m2 Moderately to severely decreased 30 - 44 mL/min/1.73m2 Severely decreased 15 - 29 mL/min/1.73m2 Kidney Failure < 15 mL/min/1.73m2 *Relative to young adult level Estimated glomerular filtration rate is determined by the 2020 CKD-EPI equation recommended by the National Kidney Foundation (A Unifying Approach to GFR Estimation: Recommendations of the NKF-ASK Task Force on Reassessing the Inclusion of Race in Diagnosing Kidney Disease, JASN 2020). The CKD-EPI equation should not be used for patients with unstable renal function and has not been validated in children and those over 70. Current interpretive data was last reviewed 2021. Blood 10/29/2024 11:0 3 AM CDT 10/29/2024 11:21 AM CDT us Ari Us MD LAB BLOOD ORDERABLES Final R esult [facility] [place] [address] * (ABNORMAL) Differential, auto (10/29/2024 11:03 AM CDT) Neutrophil abs 8.42(H) 1.50 - 6.50 K/cumm Imm gran abs 0.04 0.00 - 0.10 K/cumm [facility] Lymphocyte abs 1.17 0.80 - 3.30 K/cumm [facility] Monocyte abs 0.52 0.20 - 0.80 K/cumm [facility] Eosinophil abs 0.17 0.00 - 0.50 K/cumm [facility] Basophil abs 0.04 0.00 - 0.10 K/cumm [facility] Neutrophil pct 81.3 % [facility] Comment: Interpretive Data Percent cell count reference ranges are not reported, since discordance with absolute values may lead to misinterpretation of CBC data. Current Interpretive Data was last revised on 2017. Imm gran pct 0.4 % [facility] Comment: Interpretive Data Percent cell count reference ranges are not reported, since discordance with absolute values may lead to misinterpretation of CBC data. Current Interpretive Data was last revised on 2017. Lymphocyte pct 11.3 % [facility] Comment: Interpretive Data Percent cell count reference ranges are not reported, since discordance with absolute values may lead to misinterpretation of CBC data. Current Interpretive Data was last revised on 2017. Monocyte pct 5.0 % [facility] Comment: Interpretive Data Percent cell count reference ranges are not reported, since discordance with absolute values may lead to misinterpretation of CBC data. Current Interpretive Data was last revised on 2017. Eosinophil pct 1.6 % [facility] Comment: Interpretive Data Percent cell count reference ranges are not reported, since discordance with absolute values may lead to misinterpretation of CBC data. Current Interpretive Data was last revised on 2017. Basophil pct 0.4 % [facility] Comment: Interpretive Data Percent cell count reference ranges are not reported, since discordance with absolute values may lead to misinterpretation of CBC data. Current Interpretive Data was last revised on 2017. Blood 10/29/2024 11:0 3 AM CDT 10/29/2024 11:21 AM CDT Nathan Moore MD LAB BLOOD ORDERABLES Fin al Result Performing Organization Address City/[facility]/ZIP Co de Phone Number [facility] [place] [address] * (ABNORMAL) CBC with auto differential (10/29/2024 11:03 AM CDT) WBC 10.36(H) 3.80 - 9.90 K/cumm Hgb 11.5(L) 11.9 - 15.5 g/dL [facility] Hct 35.0(L) 35.6 - 45.5 % [facility] Plt 345 150 - 400 K/cumm [facility] MPV 11.2 9.1 - 12.3 fL [facility] RBC 4.14 3.90 - 5.20 M/cumm [facility] MCV 84.5 81.3 - 96.4 fL [facility] MCH 27.8 27.1 - 33.3 pg [facility] MCHC 32.9 32.3 - 35.7 g/dL [facility] RDW CV 16.6(H) 11.1 - 14.9 % [facility] RDW SD 50.8(H) 35.7 - 48.1 fL [facility] NRBC abs 0.00 0.00 - 0.01 K/cumm [facility] Blood 10/29/2024 11:0 3 AM CDT 10/29/2024 11:21 AM CDT Nathan Moore MD LAB BLOOD ORDERABLES Fin al Result Performing Organization Address City/[facility]/ZIP Co de Phone Number [facility] [place] [address] * Lipase (10/29/2024 11:03 AM CDT) [facility] Lipase 49 10 - 99 Units/L Blood 10/29/2024 11:0 3 AM CDT 10/29/2024 11:21 AM CDT Ari Us MD LAB BLOOD ORDERABLES Final R esult Performing Organization Address [facility] de Phone Number [facility] [place] [address] * (ABNORMAL) Hemoglobin A1c (10/29/2024 11:03 AM CDT) [facility] Hgb A1C 9.1(H) 4.0 - 5.6 % Estimated Average Glucose 214 mg/dL [facility] Comment: The ADA recommends reporting an estimated Average Glucose (eAG) with all Hemoglobin A1c results using the equation derived from a study of 507 normal and diabetic adults. Minority populations were underrepresented and children were not included. (Diabetes Care 2020; 43(S1): S66-S76). The eAG is not equivalent to a fasting glucose. Blood 10/29/2024 11:0 3 AM CDT 10/29/2024 11:24 AM CDT Dennis Cadet MD LAB BLOOD ORDERABLES Marli l Result Performing Organization Address [facility] Co de Phone Number [facility] [place] [address] * Blood gas, venous (10/29/2024 11:03 AM CDT) [facility] pH, Venous 7.35 7.32 - 7.43 PCO2, Venous 50 40 - 50 mmHg [facility] PO2, Venous 41 mmHg [facility] Comment: Interpretive Data No Reference Range Established Current Interpretive Data was last revised on 2017. HCO3 Venous, Calculated 28 20 - 30 mmol/L [facility] BE, venous 1 mmol/L [facility] Comment: Interpretive Data No Reference Range Established Current Interpretive Data was last revised on 2017. Blood 10/29/2024 11:0 3 AM CDT 10/29/2024 11:15 AM CDT Ari Us MD LAB BLOOD ORDERABLES Final R esult Performing Organization Address [facility] de Phone Number [facility] [place] [address] * (ABNORMAL) Hepatic function panel (10/29/2024 11:03 AM CDT) [facility] Bilirubin, total 0.4 0.1 - 1.2 mg/dL Bilirubin, direct <0.2 0.1 - 0.3 mg/dL [facility] Protein, pl 8.5 6.5 - 8.5 g/dL [facility] Albumin 4.4 3.5 - 5.0 g/dL [facility] Alk phos 336(H) 40 - 130 Units/L [facility] ALT 42 7 - 45 Units/L [facility] AST 39 10 - 45 Units/L [facility] Blood 10/29/2024 11:0 3 AM CDT 10/29/2024 11:21 AM CDT us Ari Us MD LAB BLOOD ORDERABLES Final R esult Performing Organization Address [facility] Co de Phone Number [facility] [place] [address] * (ABNORMAL) Basic metabolic panel (10/29/2024 11:03 AM CDT) [facility] Sodium 138 135 - 145 mmol/L Potassium, pl 4.0 3.3 - 4.9 mmol/L [facility] Chloride 94(L) 97 - 110 mmol/L [facility] CO2 26 22 - 32 mmol/L [facility] Anion gap 18(H) 2 - 15 mmol/L [facility] BUN 28(H) 6 - 25 mg/dL [facility] Creatinine 4.75(H) 0.60 - 1.10 mg/dL [facility] Glucose 358(H) 70 - 199 mg/dL [facility] Comment: Interpretive Data Fasting glucose >/= 126 mg/dl is diagnostic for diabetes. Fasting is defined as no caloric intake for at least 8 hours. Fasting glucose between 100 mg/dl to 125 mg/dl is diagnostic of prediabetes. In a patient with classic symptoms of hyperglycemia or hyperglycemic crisis, a random glucose >/= 200 mg/dl is diagnostic for diabetes. In the absence of unequivocal hyperglycemia, results should be confirmed by repeat testing. The classification and Diagnosis of Diabetes Diabetes Care 2021; 46: S19-S40. Current interpretive data was last revised 2022. Calcium 8.5 8.5 - 10.3 mg/dL [facility] Blood 10/29/2024 11:0 3 AM CDT 10/29/2024 11:21 AM CDT us Ari Us MD LAB BLOOD ORDERABLES Final R esult [facility] [place] [address] * (ABNORMAL) POCT ketone, blood (10/29/2024 10:22 AM CDT) [facility] Beta-Hydroxybut yrate, POC 1.2(H) 0.0 - 0.5 mmol/L Blood 10/29/2024 10:2 2 AM CDT 10/29/2024 10:22 AM CDT us Nathan Moore MD LAB POCT ORDERABLES - DE VICE Final Result [facility] [place] [address] * (ABNORMAL) POCT glucose (10/29/2024 10:21 AM CDT) Glucose, POC 274(H) 70 - 199 mg/dL Blood 10/29/2024 10:2 1 AM CDT 10/29/2024 10:21 AM CDT us Nathan Moore MD LAB POCT ORDERABLES - DE VICE Final Result [facility] [place] [address] * XR Abdomen 1 View AP (10/27/2024 9:35 AM CDT) Anatomical Region Laterality Modality Body, Abdomen N/A Computed Radiogr aphy 10/27/2024 10:1 6 AM CDT Impressions 10/27/2024 10:26 AM CDT Gastric stimulator leads projected over the left upper quadrant. Gastric stimulator device projected over the left lower quadrant. Intact appearance gastric stimulator leads with no discontinuity. Normal bowel gas pattern. Cholecystectomy clips projected in the right upper quadrant. Bibasilar airspace opacities. A right internal jugular hemodialysis catheter tip projected over the midline. Dictated by: Juliana Rome M.D. The radiology attending physician has personally reviewed this study, and had reviewed and/or edited this written report and agrees with it. Electronically signed by: Rony Rodriguez M.D. Narrative 10/27/2024 10:26 AM CDT EXAMINATION: Abdomen, one view. HISTORY: Abdominal pain. COMPARISON: None Procedure Note Rony Rodriguez MD - 10/27/2024 EXAMINATION: Abdomen, one view. HISTORY: Abdominal pain. COMPARISON: None IMPRESSION: Gastric stimulator leads projected over the left upper quadrant. Gastric stimulator device projected over the left lower quadrant. Intact appearance gastric stimulator leads with no discontinuity. Normal bowel gas pattern. Cholecystectomy clips projected in the right upper quadrant. Bibasilar airspace opacities. A right internal jugular hemodialysis catheter tip projected over the midline. Dictated by: Juliana Rome M.D. The radiology attending physician has personally reviewed this study, and had reviewed and/or edited this written report and agrees with it. Electronically signed by: Rony Rodriguez M.D. us Micaela Suero [facility] IMG XR PROCEDURES Final Re sult * TSH (01/09/2024 3:52 PM CDT) Thyroid Stimulating Hormone 2.46 0.30 - 4.20 mcIUnit/mL Blood 01/09/2024 3:52 PM CDT 01/09/2024 4:46 PM CDT us Sailaja Ramos MD LAB BLOOD ORDERABLES Final Result [facility] [place] [address] * Hepatitis panel, acute Blood (12/24/2023 7:26 AM CDT) Hep A IgM Nonreactive Nonreactive Comment: Interpretive Data: If Hep A IgM Ab is reported as Equivocal, a new sample should be drawn in two weeks for testing. Current interpretive data was last revised on 19. Hep B core IgM Nonreactive Nonreactive [facility] Comment: Interpretive Data If HepB Core IgM Ab is reported as Equivocal, a new sample should be drawn in two weeks for testing. Current interpretive data was last revised on 19. Hep C Ab Nonreactive Nonreactive [facility] Comment: Antibodies to HCV not detected. Does NOT exclude the possibility of recent exposure to HCV. Current interpretive data was last revised on 21 Interpretive Data Nonreactive: Antibodies to HCV not detected. Does NOT exclude the possibility of recent exposure to HCV. Equivocal: Equivocal for HCV antibodies. Supplemental molecular testing will be automatically performed to determine infection status in accordance with current CDC screening recommendations. Reactive: Positive for HCV antibodies. This may represent current or past HCV infection. Supplemental molecular testing will be automatically performed to determine current infection status in accordance with current CDC screening recommendations. Interpretive data was last revised on 2019. HepBsAg Nonreactive Nonreactive [facility] Blood 12/24/2023 7:26 AM CDT 12/24/2023 10:33 AM CDT us Odilon Tellez MD LAB MICROBIOLOGY - GENERAL OR DERABLES Final Result [facility] [id number] [facility] Department [place] [address] from Last 3 Months or Most Recently Relevant to Health Maintenance
--- OUTSIDE RECORDS SUMMARY | 2025-01-01 13:39 | XMS_ITS | Clinical Summary ---
Author Organization [facility] Address [address] [place] [address] Care Team Providers Care Exhibits Coordinator Name Role Phone Andrei Chaves MD PhD Unavailable [phone] Olivia Phelps MD Unavailable [phone] Edgardo Aldridge MD Primary Care Provider Odilon Tellez MD Unavailable [phone] Ayaka Thomas MD Unavailable [phone] Yumi Jones NP Unavailable [phone] Mendel Bowling RN Unavailable [phone] Odilon Tellez MD Unavailable [phone] Mavis Barahona RN Unavailable [phone] Allergies Active Allergy Reactions Criticality Noted Date [...] Medium 01/11/2024 Medications blood-glucose meter,continuous (Dexcom G6 Machine Builder) miscIndications:U ncontrolled type 1 diabetes mellitus with hyperglycemia, with long-term current use of insulin (HCC) 1 Dexcom G6 Machine Builder 1 each 023 Active OneTouch Delica Plus Lancet 33 gauge misc Use to test BG 4x/day 100 each Active OneTouch Verio Flex meter misc Use as directed to check BG 1 each Active insulin syringe-needle U-100 (BD Insulin Syringe Ultra-Fine) 0.3 mL 31 gauge x 5/16 syringe Use to inject insulin 4 times per day as back up to insulin pump. 100 each 11 Active insulin syr/ndl U100 half sharlene 0.3 mL 31 gauge x 15/64 syringe Use as directed 3 times a day 50 each 1 Active alcohol swabs (Alcohol Wipes) pads, medicated Use as directed. 100 each Active escitalopram (LEXAPRO) 10 mg tablet Take 1 tablet (10 mg total) by mouth daily 90 tablet 3 024 2024 Active gabapentin (NEURONTIN) 100 mg capsule Take 1 capsule (100 mg total) by mouth 3 (three) times a day 270 capsule 3 2024 Active losartan (COZAAR) 100 mg tablet Take 1 tablet (100 mg total) by mouth daily 90 tablet 3 024 2024 Active Omnipod 5 G6-G7 Pods, Gen [...] hyperglycemia, with long-term current use of insulin ([facility]) Will use 1 sensor every 10 days. 1 box = 3 sensors. 3 each Active blood-glucose transmitter (Dexcom G6 Transmitter) deviceIndications :Uncontrolled type 1 diabetes mellitus with hyperglycemia, with long-term current use of insulin ([facility]) Will use 1 transmitter every 90 days [...] within 12 hours or as directed by MD. 30 patch Active Additional Information Patient not [...] Units under the skin daily 6 mL Active metoprolol XL (TOPROL-XL) 200 mg extended [...] cell capsule Take 1 capsule by mouth bi specialist before breakfast Active albuterol 2.5 mg /3 [...] 08/07/2021 Assessment & Plan (05/13/2022 9:19 AM HISTOLOGY TECHNOLOGIST): Glucose overall improved Continue current regimen Given [...] xanx Assessment & Plan (05/15/2020 6:30 AM HISTOLOGY TECHNOLOGIST): Uncontrolled Start cymbalta, xanax Odynophagia 04/09/2020 DKA [...] not be able to see her own human resources associate until September. Continue to monitor. Hold any [...] consult Assessment & Plan (05/15/2020 6:30 AM HISTOLOGY TECHNOLOGIST): PICC line in place because of need for recurrent IVF Assessment & Plan (06/27/2019 8:49 AM CDT): - 2/2 diabeters and chronic poor control and long standing cyclic vomiting and gastroperesis. Diet as tolerated, diabetic diet. Assessment & Plan (06/12/2019 12:12 PM HISTOLOGY TECHNOLOGIST): -Continue supplements as tolerated Diabetic gastroparalysis 11/08/2018 [...] mostly IV dilaudid and was on a INVENTORY CONTROL COORDINATOR briefly. - continues to have severe abdominal [...] same. Plan change to esophageal diet today. Facility Maintenance Mechanic to review prior to dc Plan f/u with Dr Chaves in GI as OP Assessment & Plan (03/31/2022 5:47 PM HISTOLOGY TECHNOLOGIST): Type 1 diabetic Cyclical vomiting, gastroparesis - [...] year. Has an appointment for GI in [place] next month. Currently is on SSI, but [...] q1hr Assessment & Plan (05/15/2020 2:56 PM HISTOLOGY TECHNOLOGIST): Needs letter for another 2 weeks off and when returns needs intermittent restrictions on return with no more than 3 days per week, but not consecutive 3 days Assessment & Plan (05/15/2020 6:29 AM HISTOLOGY TECHNOLOGIST): Uncontrolled Cont treatment per GI Cont reglan Has PICC line Assessment & Plan (06/27/2019 8:44 AM CDT): - Chronic emesis which triggers DKA. No active symptoms now. - PCP follow up. - Glucose control as above. Assessment & Plan (04/21/2019 1:24 PM HISTOLOGY TECHNOLOGIST): -Patient reports h/o positive gastric emptying study [...] had discussion with patient regarding pain control. watermelon inspector opioids would be a very poor choice for her, given her gastroparesis, young age, and potential for developing dependence/addiction. Will not discharge on opioids. Assessment & Plan (04/20/2019 6:16 PM HISTOLOGY TECHNOLOGIST): -Patient reports h/o positive gastric emptying study [...] fluids Assessment & Plan (03/29/2020 5:23 AM HISTOLOGY TECHNOLOGIST): Uncontrolled Cont long acting insulin with SSI F/u with penetration tester Assessment & Plan (03/20/2020 5:26 AM HISTOLOGY TECHNOLOGIST): Uncontrolled Cont insulin pump per endocrinology Vitamin [...] losartan Assessment & Plan (03/31/2022 5:47 PM HISTOLOGY TECHNOLOGIST): Not at goal Pt left office today [...] 10mg Assessment & Plan (03/29/2020 5:24 AM HISTOLOGY TECHNOLOGIST): Stable Cont lisinopril, amlodipine Assessment & Plan [...] lisinopril. Assessment & Plan (06/12/2019 12:12 PM HISTOLOGY TECHNOLOGIST): continue lisinopril and toprol xl , clonidine patch Assessment & Plan (06/11/2019 1:52 PM HISTOLOGY TECHNOLOGIST): _BP better today , continue lisinopril and toprol xl Assessment & Plan (05/07/2019 2:03 PM HISTOLOGY TECHNOLOGIST): On clonidine, metoprolol and lisinopril at home. - continue home clonidine and metoprolol - hold lisinopril for now (? EUGENIE related intestinal angioedema). May need to consider alternative anti-hypertensive if needed as a trial. Assessment & Plan (04/28/2019 4:43 PM HISTOLOGY TECHNOLOGIST): - Cont home meds Assessment & Plan (04/27/2019 2:59 PM HISTOLOGY TECHNOLOGIST): - Cont home meds Assessment & Plan (04/21/2019 12:59 PM HISTOLOGY TECHNOLOGIST): Clonidine patch and metoprolol XL -BP stable Assessment & Plan (04/11/2019 12:43 PM HISTOLOGY TECHNOLOGIST): Cont lisinopril and Toprol XL, and due for change of clonidine patch Assessment & Plan (04/10/2019 11:29 AM HISTOLOGY TECHNOLOGIST): BP elevated this am but improved after receiving home meds. Also has a clonidine patch which is due to be changed on Assessment & Plan (02/03/2019 9:53 AM CDT): Stable Assessment & Plan (08/24/2018 2:44 PM CDT): Hypertension is stable. Continue current medications. Blood pressure will be reassessed at the next regular appointment Cont lisinopril. Acute respiratory failure 11/30/2011 Resolved Problems Problem Noted Date Diagnosed Date Resolved Date Nonintractable headache, uns pecified chronicity pattern, unspecified headache type 01/08/2024 02/16/2024 Hypoxia 11/29/2023 02/16/2024 Gastroparesis due to DM 11/22/2023 07/0 12/2024 Abdominal pain 11/10/2023 02/16/2024 MRSA bacteremia 10/27/2023 02/16/2024 Shortness of breath 10/23/2023 02/16/20 Perirectal abscess 10/23/2023 Anemia 10/23/2023 02/16/2024 ESRD (end stage renal disease) 10/23/2023 02/16/2024 Type 1 diabetes mellitus wit h ketoacidosis without coma 09/23/2023 10/19/2023 Disorder of phosphorus metab olism, unspecified 09/03/2023 02/16/2024 Hyperglycemia due to diabetes mellitus 08/28/2023 10/19/2023 Diarrhea, unspecified 08/19/20232023 Gastroparesis due to DM 07/31/2023 07/0 05/2023 Hypocalcemia 07/25/2023 10/19/2023 Hyponatremia 07/25/2023 10/19/2023 Abdominal pain 07/25/2023 10/19/2023 Nausea and vomiting 07/25/2023 10/19/19 24 Uncontrolled hypertension 07/25/2023 Hyperglycemia 07/25/2023 10/19/[address] 07/19/2023 07/0 05/2023 Shortness of breath 07/14/2023 07/19/19 24 Allergy, unspecified, initial encounter 07/09/2023 02/16/2024 Counseling regarding advance care planning and goals of care 2023 02/16/2024 Assessment & Plan (07/08/2023 11:29 AM CDT): Patient refused dialysis , wanting to consider hospice care and having further conversations with her mother. She has considered hospice in the past, including at OSH prior to transfer with palliative care. Options including a home IV pump were discussed by OSH palliative care, not likely to be an option per palliative consult at [facility]. She is no longer wishing for hospice, remains FULL CODE, but continues to consider this as an option if she were wishing to not undergo further dialysis. Palliative care following & updated MD 07/05, 07/06. Plan OP follow up for ongoing support. Fever 06/16/2023 07/19/2023 Assessment & Plan (07/08/2023 11:30 AM CDT): 06/15 pt with worsening tachcyardia and new fever, not much other symptoms at the time other than cough. RVP negative, blood cultures NGTD, but XR with possible pneumonia vs aspiration which is subtle. Received IV vancomycin/cefepime 06/15. Repeat fever on 06/25 and 06/26. Repeat blood culture negative, cxr clear, RVP neg, UA c/f infection->CTX 06/26-06/27 but urine culture was negative. RESOLVED. Palliative care by specialist 06/07/2023 07/19/2023 Acute hyperkalemia 05/16/2023 Intractable cyclical vomiting with nausea 05/15/2023 06/15/2023 Nausea and vomiting, unspeci fied vomiting type 05/03/2023 06/15/2023 Chest pain, unspecified type 04/29/2023 07/19/2023 Abdominal pain, generalized 04/05/2023 07/19/2023 Assessment & Plan (07/08/2023 11:30 AM CDT): Patient has been on IV opiates with IV Benadryl for long time. Multiple ongoing discussions about weaning down IV opiates, she was not receptive to the idea for a long time and finally agreed for weaning process. In the past she said that she has not able to keep p.o. meds down and that she will throw up, although she did not have any episodes of vomiting for couple of days at the time. -started suboxone on 06/24 and discontinued on 07/02 -Dilaudid wean started on 06/29. Decreased Dilaudid from 1q3 to 1Q4 along with IV Benadryl on 06/29. Her pain is worse after Dilaudid is decreased from 1Q3 to 1q4, pt requested dose decrease rather than frequency. So decreased the dose from 1q3 to 0.5 q3 .Then patient requested to keep her Benadryl at her previous dose of 25 mg q.3. When I brought up decreasing the frequency of IV Benadryl from 25 mg q.3 to q.4 patient became tearful and wanted to speak to palliative care to seek for hospice as she can not bear the pain without the current regime of IV medications. She refused decreasing the frequency or decreasing the dose of IV narcotics further. Palliative recommended obtaining pain management consult for weaning IV narcotics. Had a long conversation with pain management, initially they suggested palliative or toxicology to be involved but later agreed to help with weaning IV Dilaudid. Toxicology consulted for Suboxone management and IV Benadryl dependence. - Patient said that Suboxone is helping her to toxicology and that it has not helping her to hospitalist & pain management MD, given inconsistency arranged team meeting with Toxicology & pain management 07/02 with patient and set up goals for weaning IV Dilaudid, Benadryl and Suboxone management. Patient expressed her main concern that she will not absorb p.o. medications which is addressed by all the teams that since she is tolerating diet and is requesting to advance diet and also having regular bowel movements, everyone explained to her that she will absorb medications well . Since Suboxone is not helping the patient as per her, it was discontinued. She agreed to decrease the frequency of IV Dilaudid and Benadryl slowly. I spoke with patient's mother and explained the plan. She is agreeable. Further complicated by recurrent severe urinary retention, likely adding to abdominal pain. PVR 1400mL 07/06, but pt refusing catheterization. On FUEL INJECTION SERVICER already, but at risk for bladder perforation. See below. Cont narcotic wean. PLAN -decreasing the frequency of IV Dilaudid everyday from Q 3 to Q 4-> Q 5-> q.6 -> currently 0.2mg IV q8h PRN -> q12h vs spot dose -Add one time toradol dose 07/06 -Add lidocaine patch 07/06 -decrease the frequency of IV Benadryl everyday from Q 3 to q.4-> Q 5-> q.6=>q8h ->currently 12.5mg q12h PRN (once it is q.12 can change to p.o.) If patient withdraws from Benadryl like increased salivation which is unlikely with the current dose, can use scopolamine patch. -Advanced Lyrica 25=>50mg (07/06), Continue Flexeril 10 mg -coordinating multiple disciplines for consistent plan and messaging, discussed with nursing in [facility] 07/05, 07/06 & 07/07. Also coordinating [facility], as well. -Consulted urology for bladder decompression options & hess placed. Pt wishes to go home today, BG now controlled. Plan dc home today with [facility], orders placed 07/07. Transition meds to PO at discharge, as pt tolerating diet. Discharge Planning I have spent 30 minutes on discharge planning activities. Time spent was on Coordination of care, Follow up , Counselling with patient/family, discharge exam, parent/patient education, PCP communication, and Other provider communication. Assessment & Plan (06/15/2023 3:17 AM HISTOLOGY TECHNOLOGIST): Related with gastroparesis. See gastroparesis section Type 1 diabetes mellitus wit h other specified complication 04/05/2023 10/19/2023 Assessment & Plan (07/08/2023 11:28 AM CDT): Brittle diabetic in setting of T1D, Hemodialysis, and gastroparesis. Initially the diet has been variable and pt refusing consistent carbs so DM management has been challenging. Continues to have large swings in sugars, denies additional snacking, but food at bedside being consumed day to day. Adjust insulin and close monitoring. Encourage diet and med compliance, with poor results. Diabetes team following and titrating further PRN. Gastroparesis likely related to underlying diabetes and concern for neurogenic bladder as well, related to diabetes. Counseled on exterminator helper termite effects of poorly controlled diabetes by multiple providers this admit. Anticipate poor prognosis without significant changes in habits. Plan OP follow up. Esophageal dysphagia 04/05/2023 024 End stage chronic kidney disease 03/27/2023 07/19/2023 Assessment & Plan (07/08/2023 11:29 AM CDT): On MWF HD via tunneled catheter. Nephrology following for dialysis needs. Hyperkalemia in setting of hyperglycemia 07/05, emergent dialysis with resolution. Persistent hyperphosphatemia, resolved with ongoing treatments. Patient Volume appropriate on exam. Given large urine losses 07/06 post obstruction, routine dialysis held 07/07 per renal. Nausea & vomiting 03/26/2023 06/15/2023 Anaphylactic shock, unspecif ied, initial encounter 02/01/2023 03/15/2023 Pneumonia 12/02/2022 07/19/2023 Overview (03/15/2023): 27YO w hx T1DM (A1c 11.5%) c/b gastroparesis s/p gastric pacemaker, ESRD newly on HD (M/W/F), HTN admitted with N/V on 11/21. More recently new fevers and CT 12/01 with focal consolidation in LLL with tree in bud nodules, mediastinal and axillary lymphadenopathy . Consult for possible bronchoscopy. Per review of her imaging, there is a chest x-ray available in our system from September which shows hilar lymphadenopathy/opacity adjacent to the descending aorta as well as LLL opacity. Does not appear she was treated for pneumonia normal bulk tone mood per outside hospital report only, she had a chest CT in October 18 with left lower lobe opacity read as atelectasis versus pneumonia. She received azithromycin and ceftriaxone for CT treatment at that time. Repeat imaging outside hospital with CT PE October 29 negative for PE but showed persistent consolidation in the superior left lower lobe with hilar lymphadenopathy. ASSESSMENT: Patient's history is notable for night sweats, intermittent fevers/chills at home as well as a 15 lb weight loss. Given the presence of abnormal imaging findings since at least September or earlier, concern for motor subacute or atypical infectious process contributing to patient's presentation. Endemic fungal or less likely mycobacterial infection is on the differential. Lymphoma should be considered but is less likely. Would expect bacterial infection to behave differently however patient is at risk for ongoing aspiration. PLAN: -continue antibiotics, agree with broad-spectrum -please check RVP, MRSA swab, pneumonia PCR, sputum fungal culture, sputum mycobacterial culture -follow fungal serologies, ensure urine histo also sent -Obtain TTE given elevated PASP on OSH study -if possible please obtain outside hospital CT scan images from 10/18 and CTA 10/29 -Continuous pulse ox -Aspiration precautions Assessment & Plan (12/07/2022 3:28 PM CDT): 27YO w hx T1DM (A1c 11.5%) c/b gastroparesis s/p gastric pacemaker, ESRD newly on HD (M/W/F), admitted with N/V on 11/21. More recently new fevers and CT 12/01 with focal consolidation in LLL with tree in bud nodules, mediastinal and axillary lymphadenopathy. Left hilar lymphadenopathy/opacity adjacent to the descending aorta as well as LLL opacity present for a few months, with resolving infiltrates but some persistent adenopathy. Had azithromycin and ceftriaxone for CAP treatment in October. +night sweats, intermittent fevers/chills, 15 lb weight loss. 12/04 bronch BAL cloudy, 183 nucs 39% macrophages, 33% ruddy, PNA Pcr with too many squamous cells, RVP negative, fungal and AFB cultures NGTD; LN with no orgs, polymoprhonuclear leuks, cyto negative for monoclonal B cell population, TB PCR negative Blood crypto, legionella, aspergillus and urine histo Ag all negative PLAN: -Finish 7 day course of cefepime (or similar Abx) -today is day 6 -Aspiration precautions. -Continue to follow cultures. -Oxygen assessment w exertion prior to discharge. -Repeat imaging and PFT as outpatient, pulmonary follow-up, will arrange Assessment & Plan (12/06/2022 10:19 PM CDT): 27YO w hx T1DM (A1c 11.5%) c/b gastroparesis s/p gastric pacemaker, ESRD newly on HD (M/W/F), admitted with N/V on 11/21. More recently new fevers and CT 12/01 with focal consolidation in LLL with tree in bud nodules, mediastinal and axillary lymphadenopathy. Left hilar lymphadenopathy/opacity adjacent to the descending aorta as well as LLL opacity present for a few months, with resolving infiltrates but some persistent adenopathy. Had azithromycin and ceftriaxone for CAP treatment in October. +night sweats, intermittent fevers/chills, 15 lb weight loss. 12/04 bronch BAL cloudy, 183 nucs 39% macrophages, 33% ruddy, PNA Pcr with too many squamous cells, RVP negative, fungal and AFB cultures pending; LN with no orgs, polymoprhonuclear leuks, cyto pending Blood crypto, legionella, aspergillus and urine histo Ag all negative PLAN: Finish 7 day course of cefepime (or similar Abx). Aspiration precautions. Call cytology for results on Wednesday. Follow cultures. Oxygen assessment w exertion prior to discharge. Repeat imaging and PFT as outpatient, pulmonary followup. Type 1 diabetes mellitus wit h neurological complications 10/26/2022 10/19/2023 ESRD on hemodialysis 10/26/2022 024 Pulmonary hypertension, unspecified 10/26/2022 10/19/2023 Unspecified hydronephrosis 10/26/2022 0 10/19/2023 Gastroparesis 10/05/2022 10/19/2023 Uncontrolled type 1 diabetes mellitus with hyperglycemia 09/18/2022 10/19/2023 Acute kidney injury superimposed on CKD 07/11/2022 07/19/2023 Chronic kidney disease 05/29/202207/18 Personal history of COVID-19 04/19/2022 02/16/2024 Hypoglycemia 08/08/2021 10/19/2023 Assessment & Plan (08/09/2021 2:13 PM CDT): Pt had a significant episode on 08/08 at 0630 where her glucose was 31 and a rapid response was called. Two bolus pushes were given of dextrose via IV were given and mentation normalized. Her last witness normal was at 0430. Overnight pt received 18u of lispro from the time of 1700 and 2130, and lantus 20u at 2130. Lantus last only about 4hrs in duration, so it is unlikely this was the culprit of her hypoglycemia. Pt was under 24hr 1:1 observation, were able to r/o [place]unch[place]en. Per endocrinology she likely has delayed gastric emptying 2/2 gastroparesis, such delaying administration of insulin after meals and to decrease Lantus dose. She continues to have dips of her glucose into the 60's. - Psych eval placed - endocrinology consulted - continue to follow hypoglycemia protocol - will continue to monitor Hypertensive urgency 07/31/2021 024 Assessment & Plan (07/31/2021 11:02 AM CDT): Likely due to patient being unable to take her HTN meds at home as she was nauseated/ vomiting Presented with BP of 185/123, received labetalol 20 mg iv X 2 and enalaprilat 1.25 mg iv X 1 in the ED Now able to take po, BP is much improved with home meds resumed If patient continues to be hemodynamically stable then anticipate discharge later today. Other chest pain 07/30/2021 03/31/2022 Assessment & Plan (07/31/2021 10:55 AM CDT): Musculoskeletal pain due to hitting chest on edge of bath tub when pt passed out No skin tears/ bruises noted. CT chest negative for rib fractures. EKG done yesterday was negative for any acute ST/T changes Lidocaine patch ordered, along with po Tylenol Pain is currently well controlled Cyclic vomiting syndrome 07/14/2021 Assessment & Plan (07/31/2021 10:58 AM CDT): Pt has h/o gastroparesis, again presents with severe nausea and vomiting She even has a tequila cath on her chest for iv fluids due to difficult veins Treated with antiemetics and iv fluids Symptoms now almost resolved, tolerating food Will dc iv fluids, continue prn anti- emetics If continues to do well, anticipate discharge later today Assessment & Plan (07/16/2021 8:40 AM CDT): Patient had been recently seen at [facility] for same complaints. Was admitted 07/02- 07/06. Returned to [facility] again on 07/10, where she was discharged from ED. Came to [facility] ED on 07/12, again discharged from ED. Returned to [facility] on 07/13 with same symptoms and admitted for nausea/vomiting, pain control. Patient reported repetitive movements c/w tardive dyskinesia with Reglan. - Zofran, compazine for prn nausea control - GI soft, avoiding dairy; advance as tolerated - IVF discontinued Assessment & Plan (07/15/2021 8:28 AM CDT): Patient had been recently seen at [facility] for same complaints. Was admitted 07/02- 07/06. Returned to [facility] again on 07/10, where she was discharged from ED. Came to [facility] ED on 07/12, again discharged from ED. Returned to [facility] on 07/13 with same symptoms and admitted for nausea/vomiting, pain control. Patient reported repetitive movements c/w tardive dyskinesia with Reglan. - Zofran, Benadryl, Haldol, and Morphine for prn nausea control. Per patient, combination of these medications works for her - continue IVNS - NPO, will eat ice chips, hold down meds; advance as tolerated HLD (hyperlipidemia) 06/03/2021 023 Anxiety 06/03/2021 02/16/2024 Intractable vomiting with nausea 07/04/2020 03/31/2022 PICC (peripherally inserted central catheter) in place 05/15/2020 12/22/2022 Assessment & Plan (05/15/2020 6:30 AM HISTOLOGY TECHNOLOGIST): Will need to get flushed Weight loss 04/09/2020 12/22/2022 Chronic cough 04/09/2020 12/22/2022 Elevated d-dimer 02/05/2020 03/31/2022 Leg wound, left 02/05/2020 03/31/2022 COVID-19 virus infection 01/18/202012/2024 Assessment & Plan (01/26/2020 9:28 AM CDT): New Having patient go to the ER because of respiratory symptoms, especially because she has uncontrolled diabetes Abscess or cellulitis of scalp 11/26/2019 03/31/2022 Type 1 diabetes mellitus 08/09/2019 Assessment & Plan (08/07/2021 9:55 AM CDT): Last HbA1c: 2 years ago was 13; BG has been high 313 - Pt placed on SSI - DM educator consulted - diet and nutrition discused w/ pt. Stressed importance of exercise - DM complications present on admission: gastroparesis and DM nephropathy Assessment & Plan (01/09/2020 7:57 PM CDT): Uncontrolled diabetic with A1c>18 when hospitalized. Feeling improved now. Urged patient to re-establish with previous penetration tester for management. Need back on insulin pump Hypokalemia 08/09/2019 12/22/2022 Assessment & Plan (07/16/2021 8:37 AM CDT): Patient with K 3.2 on admission. Secondary to vomiting. - monitor with daily CMP Assessment & Plan (07/15/2021 8:25 AM CDT): Patient with K 3.2 on admission. Secondary to vomiting. - monitor with daily CMP Respiratory alkalosis 08/06/20192021 Assessment & Plan (08/06/2019 6:18 AM CDT): Likely secondary to hyperventilation. Patient's ABG on presentation was 7.66/16/121. Currently resolved. Sinus tachycardia 08/06/2019 08/07/2021 Assessment & Plan (08/06/2021 11:33 AM CDT): Likely 2/2 gastroparesis Assessment & Plan (07/16/2021 8:37 AM CDT): Patient has been consistently in sinus tach since admission. Continue home meds. - Metoprolol XL 25mg daily increased to 50mg on 07/16/2021 Assessment & Plan (07/14/2021 6:22 PM CDT): Patient has been consistently in sinus tach since admission. Continue home meds. - Metoprolol XL 25mg daily Assessment & Plan (08/06/2019 6:20 AM CDT): Patient has chronic tachycardia that she is aware of. She is on metoprolol which has been resumed. Patient has been referred to Cardiology by her PCP but has not had her appointment yet. Her baseline heart rate is in the low 100s. Will continue to monitor. Severe malnutrition (CMS/HCC) 05/19/2019 08/08/2021 Assessment & Plan (07/31/2021 3:08 PM CDT): Dietitian recx appreciated Assessment & Plan (06/07/2020 3:17 PM HISTOLOGY TECHNOLOGIST): Persistent Cont regjonny martinez, compazine Refer to new gi Nausea & vomiting 05/07/2019 06/15/2023 Assessment & Plan (03/29/2020 5:23 AM HISTOLOGY TECHNOLOGIST): Uncontrolled Secondary to severe gastroparesis Will try scopolamine patch Cont perla fullerazine prn Assessment & Plan (06/12/2019 12:13 PM HISTOLOGY TECHNOLOGIST): -resolved -continue home meds, tolerating diet -has h/o cyclical vomiting and follows with GI -Reports benefit from recently added Motegrity and amitriptyline. She is on a low dose amitriptyline 25mg QHS. Will increase to 50mg QHS. Pt reports some restless leg side effects, advised her to watch carefully and reduce dose if RLS worsens. Assessment & Plan (06/11/2019 1:55 PM HISTOLOGY TECHNOLOGIST): -resolved -continue home meds, tolerating diet -has h/o cyclical vomiting and follows with GI Assessment & Plan (05/07/2019 1:59 PM HISTOLOGY TECHNOLOGIST): Previously seen by GI and felt to be due to cyclic vomiting syndrome (history of attacks q6 months which have now escalated in frequency) with likely component of delayed gastric emptying in the setting of poorly controlled diabetes as well as element of constipation. Last gastric emptying study 07/2017 [facility] ([facility]) was normal. Previous admissions for DKA likely contributing to nausea/vomiting however she does not currently appear to be in DKA. May need to consider evaluating for hereditary angioedema or medication induced intestinal angioedema given that she is on an EUGENIE-I. - will attempt symptomatic control with scheduled antiemetics, IVF, NPO until able to tolerate PO intake - continue home TCA - may need to consider adding IV ativan for acute management of nausea/vomiting - low stimulation environment - pain control with IV toradol for now - send complement levels, consider sending C1 esterase inhibitor - notify GI in AM Cyclical vomiting syndrome 04/27/2019 0 07/19/2023 Assessment & Plan (03/31/2022 5:48 PM HISTOLOGY TECHNOLOGIST): Seen by GI Fluids given Assessment & Plan (08/06/2021 11:38 AM CDT): Likely 2/2 gastroparesis and uncontrolled DM. Though there might be a kidney component to this due to he worsening GFR and persistently having elevated protein in her UA over the last few months. - due to the worsening GFR, nephrology was consulted from the ED, will follow their recs - will continue to monitor Assessment & Plan (08/04/2020 4:13 PM CDT): Chronic Cont klonopin, zofran Has f/u with GI Assessment & Plan (06/07/2020 3:17 PM HISTOLOGY TECHNOLOGIST): Persistent Cont reglan, zofran, compazine Refer to new gi Assessment & Plan (05/31/2020 2:18 PM HISTOLOGY TECHNOLOGIST): Uncontrolled Cont treatment per GI Has PICC line Assessment & Plan (05/15/2020 6:29 AM HISTOLOGY TECHNOLOGIST): Uncontrolled Cont treatment per GI Has PICC line Assessment & Plan (03/20/2020 5:26 AM HISTOLOGY TECHNOLOGIST): Uncontrolled Cont treatment per GI To refer to [facility] to get port placed for recurrent, incessant nausea/vomiting causing dehydration Assessment & Plan (08/06/2019 6:14 AM CDT): Patient follows with Dr. Moura and next has an appointment in September. She is not currently on any medications other than p.r.n. Compazine. Amitriptyline stopped working for her so that was discontinued. Continue with p.r.n. Compazine. Patient states Haldol helps with her nausea as well, will order p.r.n. Haldol. Continue to monitor. Assessment & Plan (07/04/2019 12:57 PM CDT): -Currently tolerating diet with some nausea, but no vomiting, which is about baseline for patient -continue Motegrity (home meds) -Discussed increasing amitriptyline to 75mg QHS, patient agreeable. Follow up with Dr Moura as scheduled. Appears to be plans for emptying study as outpatient Assessment & Plan (07/03/2019 6:03 PM CDT): -Currently tolerating diet with some nausea, but no vomiting, which is about baseline for patient -Will see if we can continue patient's motegrity, as she has her own pills -Discussed increasing amitriptyline to 75mg QHS, patient agreeable. Assessment & Plan (06/27/2019 8:51 AM CDT): - Possible trigger for current DKA. Symptoms resolved now. - PRN conservative therapy. PCP follow up. Assessment & Plan (04/28/2019 4:43 PM HISTOLOGY TECHNOLOGIST): - Seen by GI last admission. Thought that available data and history more consistent with CVS. - Started on low dose amitriptyline, will increase to 50mg - Uses promethazine for N/V Assessment & Plan (04/27/2019 2:53 PM HISTOLOGY TECHNOLOGIST): - Seen by GI last admission. Thought that available data and history more consistent with [facility]. - Started on low dose amitriptyline, will increase to 50mg - Uses promethazine for N/V Constipation by delayed colonic transit 04/27/2019 07/19/2023 Assessment & Plan (06/27/2019 8:50 AM CDT): - Chronic. - Mild colitis noted on CT, but no diarrhea, and abdominal pain and other symptoms have resolved. - Possibly from chronic constipation. Start miralax daily. - Added on ESR, CRP, though inflammatory bowel is less likely. PCP follow up. If symptoms persist, an outpatient colonoscopy can be considered. Assessment & Plan (05/07/2019 2:02 PM HISTOLOGY TECHNOLOGIST): Has not yet started Motegrity at home due to issues with pharmacy. No BM in 3 days per patient. - start motegrity 2mg qd Assessment & Plan (04/28/2019 4:43 PM HISTOLOGY TECHNOLOGIST): - Had BM after none for 5 days. Rx'd prucalopride last admission, just today arrived to pharmacy so not taken. She reports that she received opioids for the first time last admission - Will hold for now as she says she alternates with diarreha. Assessment & Plan (04/27/2019 3:00 PM HISTOLOGY TECHNOLOGIST): - Had BM after none for 5 days. Rx'd prucalopride last admission, just today arrived to pharmacy so not taken. She reports that she received opioids for the first time last admission - Will hold for now as she says she alternates with diarreha. Dehydration 04/25/2019 07/19/2023 Assessment & Plan (07/31/2021 11:05 AM CDT): Secondary to nausea and vomiting Presented with HR 139, treated with iv fluids and anti emetics HR now improved to normal. Nausea and vomiting resolved, pt is taking po diet well. Will dc iv fluids. Severe malnutrition 04/11/2019 07/19/19 Assessment & Plan (08/07/2021 7:24 AM CDT): Nutrition consulted, will follow recs Assessment & Plan (04/21/2019 12:59 PM HISTOLOGY TECHNOLOGIST): -Facility Maintenance Mechanic consult, supplements as recommended. Patient doesn't like taste of many supplements Assessment & Plan (04/11/2019 12:43 PM HISTOLOGY TECHNOLOGIST): Treating nausea and encourage more regular food intake DKA (diabetic ketoacidoses) 04/10/2019 03/31/2022 Assessment & Plan (08/06/2019 6:15 AM CDT): Likely secondary to cyclic vomiting. Currently resolved. Patient was transitioned off the insulin drip earlier in the evening. She was given 10 units of Lantus. Normally patient takes 25 units in the morning, will resume at 12 units tomorrow morning as patient is NPO due to nausea and vomiting. Continue mid dose sliding scale. Continue to monitor. Sugars are controlled at this time. Assessment & Plan (07/04/2019 12:56 PM CDT): -Resolved after IV insulin and aggressive IVF per DKA protocol Assessment & Plan (07/03/2019 6:02 PM CDT): -Resolved after IV insulin and aggressive IVF per DKA protocol Assessment & Plan (06/27/2019 8:47 AM CDT): - Frequent admissions for DKA. This ICU stay was short with a gap of 20, elevated ketones that closed with insulin gtt. - Now on lantus 25 units and lispro 3 units plus slide. Glucose well controlled. - Resume carb counting at home. Follows with Dr. Mcfarland in clinic. - DM education ordered, but they have seen her many times. - Trigger is often cyclic vomiting, gastroparesis. Assessment & Plan (06/12/2019 12:11 PM HISTOLOGY TECHNOLOGIST): - weaned off isulin drip , now on subQ - home dose of lantus 25 units qam, sliding scale of 1 unit for every 50 over 150, and mealtime insulin 1 unit for 5 gm carb. - seen by endocrine last admission, has brittle diabetes and fluctuating sugars. Reduced lantus to 20 units due to hypoglycemia, added LDSSI and mealtime of 4 units- adjust as needed. -BG high in middle of night on BMP, but no gap, and improved by 7AM fasting BG. -Likely discharge home today Assessment & Plan (06/11/2019 1:55 PM HISTOLOGY TECHNOLOGIST): - weaned off onsulin drip , now on sub , home dose of lantus 25 units qam, sliding scale of 1 unit for every 50 over 150, and mealtime insulin 1 unit for 5 gm carb. - seen by endocrine last admission , , has brittle diabetes and fluctuating sugars. Hypoglycemic last evening. Reduced lantus to 20 units, added LDSSI and mealtime of 4 units- adjust as needed. If sugars remain high , repeat BMP to ensure gap hasnt opened up . Assessment & Plan (04/28/2019 4:43 PM HISTOLOGY TECHNOLOGIST): - Recurrent admissions, seem to be brought on by CVS episodes, though occurring more frequently than to be expected - Mild AG and acidosis on arrival, resolved in ICU on insulin drip - Now back on basal/bolus Lantus 30U, lispro 10 TIDAC. Appetite and PO intake not very consistent, expects to restart carb counting at home - Endocrine following, appreciate recs. Will be followed by them as outpatient - Encourage PO fluid intake Assessment & Plan (04/27/2019 2:59 PM HISTOLOGY TECHNOLOGIST): - Recurrent admissions, seem to be brought on by CVS episodes, though occurring more frequently than to be expected - Mild AG and acidosis on arrival, resolved in ICU on insulin drip - Now back on basal/bolus Lantus 30U, lispro 10 TIDAC. Appetite and PO intake not very consistent - Endocrine following, appreciate recs. Will be followed by them as outpatient Assessment & Plan (04/21/2019 1:02 PM HISTOLOGY TECHNOLOGIST): -DKA resolved after IV insulin, IVF and electrolyte repletion in ICU Assessment & Plan (04/20/2019 6:13 PM HISTOLOGY TECHNOLOGIST): -DKA resolved after IV insulin, IVF and electrolyte repletion in ICU Assessment & Plan (04/11/2019 12:48 PM HISTOLOGY TECHNOLOGIST): Presented with N/V which she felt was due to gastroparesis flare, in DKA on admission. Anion gap closed, and remained normal at 10 yesterday evening despite hyperglycemia Poor control overnight due to inadequate short-acting insulin dosing earlier in the day as well as her eating frequent meals yesterday evening Cont Lantus 20 Units, she takes 24 units at home but didn't want extra today given her nausea Cont Lispro 4 Units with meals, or more if she is eating more with carb counting Cont to monitor sugars closely Assessment & Plan (04/10/2019 11:28 AM HISTOLOGY TECHNOLOGIST): Presented with N/V which she felt was due to gastroparesis flare, in DKA on admission. Anion gap closed, received 18 Units Lantus before midnight. Cont present SQ insulin orders, monitor sugars closely Diabetes education ordered Discharge home once tolerating po later today or tomorrow Concussion with loss of consciousness 11/08/2018 03/31/2022 Polyneuropathy 11/08/2018 12/22/2022 Diabetes mellitus 11/08/2018 03/31/2022 Diabetes mellitus with gastr oparesis ([facility]) 07/07/2018 03/31/2022 Assessment & Plan (07/31/2021 11:00 AM CDT): Pt wears an insulin pump at home, had removed it as she was sick Started on basal and SSI per hospital protocol Sugars were low in 60s this morning, but now eating well, sugars improved Continue to monitor accuchecks Assessment & Plan (07/16/2021 8:38 AM CDT): Patient had been on insulin pump but stopped using it once she was admitted to [facility] on 07/02. Was previously on Reglan but discontinued due to repetitive movements c/w tardive dyskinesia. - nurse educator - Stenotype Operator - on sliding scale only for now, will add on basal+bolus regimen if necessary - follow POC glucose checks Assessment & Plan (07/14/2021 6:35 PM CDT): Patient had been on insulin pump but stopped using it once she was admitted to [facility] on 07/02. Was previously on Reglan but discontinued due to repetitive movements c/w tardive dyskinesia. - nurse educator - Stenotype Operator - on sliding scale only for now, will add on basal+bolus regimen if necessary - follow POC glucose checks Assessment & Plan (04/11/2019 12:42 PM HISTOLOGY TECHNOLOGIST): Longstanding gastroparesis per patient. Recently admitted at [facility] but left 2-3 days prior to admission here as she says she was unhappy with her care. Nausea recurred this am but no vomiting. Will resume IVF if she doesn't tolerate lunch. I reviewed some records from [facility] and found a gastric emptying study done in [place] which was normal, though this doesn't exclude gastroparesis I wonder if there is a functional component as well Regardless, cont supportive care with prn Zofran and added prn Compazine Assessment & Plan (04/10/2019 11:29 AM HISTOLOGY TECHNOLOGIST): Longstanding gastroparesis per patient. Recently admitted at [facility] but left 2-3 days prior to admission here as she says she was unhappy with her care. Cont prn antiemetics, she says Reglan didn't help in the past Outpatient GI F/U Resume IVF if she starts vomiting again Assessment & Plan (02/03/2019 9:53 AM CDT): Well controlled now since seeing penetration tester and using OmniPod. She is cleared to drive RODRIGUEZ (acute kidney injury) 10/26/2017 Assessment & Plan (08/06/2021 11:41 AM CDT): Has had worsenign GFR over the last 6mo and has a h/o proteinuria. Per Dr. Sanchez, likely RODRIGUEZ 2/2 volume depletion but could be from DM nephropathy. Assessment & Plan (07/31/2021 3:10 PM CDT): Cr 1.56 (improved from 1.85 three days ago), but still not at her baseline Likely pre renal from the nausea/ vomiting, which has now subsided S/p iv fluids, pt encouraged to drink adequate water Assessment & Plan (07/16/2021 8:40 AM CDT): Baseline creatinine 0.87. On admission, 1.12. Mild RODRIGUEZ. 0.98 on 07/15. - IVF discontinued - monitor with daily CMP Assessment & Plan (07/15/2021 8:27 AM CDT): Baseline creatinine 0.87. On admission, 1.12. Mild RODRIGUEZ. 0.98 today. - continue IVF hydration - monitor with daily CMP Urinary tract infection with hematuria 10/26/2017 03/31/2022 Diabetes mellitus type I 10/18/2017 Assessment & Plan (07/04/2019 12:56 PM CDT): -Brittle DM1 -Home regimen Lantus 25 units, humalog carb count with sliding scale -Received lantus 25 units yesterday AM and 2 units with lunch and had some hypoglycemia (53) yesterday Lantus dose reduced to 22 Units now with elevated BG 388. -NPO this am while BG improved now 180s Will advance diet, increase Lantus, continue prandial and SSI Assessment & Plan (07/03/2019 6:06 PM CDT): -Brittle DM1 -Home regimen Lantus 25 units, humalog carb count with sliding scale -Received lantus 25 units this AM and 2 units with lunch and had some hypoglycemia -Will decrease lantus to 22 units, continue humalog 2 units TID with meals, mid dose SSI Assessment & Plan (06/27/2019 8:47 AM CDT): - As above, resume carb counting and basal bolus home regimen at discharge, no planned change to current regimen. - Good control this AM. Assessment & Plan (05/07/2019 1:58 PM HISTOLOGY TECHNOLOGIST): History of brittle diabetes with multiple recent and past admissions for DKA. Does not appear to be in DKA currently though has an elevated anion gap. Previously followed by endocrine and at last discharge was on lantus 30qhs and lispro sliding scale with meals. - dose reduce lantus to 20qhs as will be NPO and already low blood sugars - QID accuchecks - notify endocrine in AM Assessment & Plan (04/21/2019 1:21 PM HISTOLOGY TECHNOLOGIST): -Home regimen lantus 24u QAM, humalog 1 unit per 5 gram carb, SSI -Hospital regimen lantus 30units QAM, lispro 5 unit TID, Mid dose SSI -Discussed above insulin regimen with Dr. Chambers of endocrine today -BG are in 200's. Her A1c of 12.4% suggests an average of 300, so she is doing better -Her diet intake has been very unpredictable 2/2 gastroparesis. -I suspect she can actually achieve tighter control at home using a carb count (which we do not do at [facility]) -D/c home, close f/u as outpatient Assessment & Plan (04/20/2019 6:14 PM HISTOLOGY TECHNOLOGIST): -Home regimen lantus 24u QAM, humalog 1 unit per 5 gram carb, SSI -Hospital regimen lantus 15units QAM, lispro 3 unit TID, Mid dose SSI -Her diet intake has been very unpredictable 2/2 gastroparesis, so I am intentionally underdosing mealtime insulin to avoid hypoglycemia. Assessment & Plan (08/24/2018 2:44 PM CDT): Diabetes is unchanged. cont long acting insulin until sees penetration tester ETD (Eustachian tube dysfunction), bilateral 8 07/19/2023 Diabetic gastroparesis (CMS/HCC) 05/22/2017 03/31/2022 Overview (01/08/2020): Last Assessment & Plan: Longstanding gastroparesis per patient. Recently admitted at [facility] but left 2-3 days prior to admission here as she says she was unhappy with her care. Nausea recurred this am but no vomiting. Will resume IVF if she doesn't tolerate lunch. I reviewed some records from [facility] and found a gastric emptying study done in [place] which was normal, though this doesn't exclude gastroparesis I wonder if there is a functional component as well Regardless, cont supportive care with prn Zofran and added prn Compazine Assessment & Plan (08/04/2020 4:13 PM CDT): Chronic Cont regjonny martinez Has f/u with GI Assessment & Plan (06/07/2020 3:16 PM HISTOLOGY TECHNOLOGIST): Persistent Cont reglan, zofran, compazine Refer to new gi Assessment & Plan (03/29/2020 5:22 AM HISTOLOGY TECHNOLOGIST): Severely uncontrolled To f/u with Gi Recommended patient d/w GI about tube feedings She agrees to do so Assessment & Plan (03/20/2020 5:26 AM HISTOLOGY TECHNOLOGIST): Uncontrolled Cont treatment per GI To refer to GS to get port placed for recurrent, incessant nausea/vomiting causing dehydration Diabetic ketoacidosis withou t coma associated with type 1 diabetes mellitus 02/02/2017 03/31/2022 Overview (01/08/2020): Last Assessment & Plan: Likely secondary to cyclic vomiting. Currently resolved. Patient was transitioned off the insulin drip earlier in the evening. She was given 10 units of Lantus. Normally patient takes 25 units in the morning, will resume at 12 units tomorrow morning as patient is NPO due to nausea and vomiting. Continue mid dose sliding scale. Continue to monitor. Sugars are controlled at this time. Myopia 10/28/2010 02/16/2024 Encounters Date Type Department Care Team Description 12/29/2024 Results Follow-Up [facility] Family Medicine at [address] [place] [address] Edgardo Aldridge MD SCAN - RADIOLOGY/IMAGING 12/28/2024 Documentation [facility] Gastroenterology [address] [facility] Medical Office Building [address] [place] [phone] Jaimie Manriquez, KADY Consult from Peg-[facility] 12/28/2024 Results Follow-Up [facility] Gastroenterology [address] [place] [address] 12th [place] [address] [place] [phone] Young Vasquez MD Surgical pathology 12/26/2024 8:46 AM CDT Anesthesia Event [facility] Digestive [address] [address] Dylan Frias MD Kandachar, Suman Subbaraya, MD 12/26/2024 8:45 AM CDT - 12/26/2024 9:45 AM CDT Surgery [facility] Digestive Disease [address] [address] Young Vasquez MD COLON BIOPSY 12/26/2024 6:53 AM CDT - 12/26/2024 11:18 AM CDT Hospital Encounter [address] [address] Young Vasquez MD Perirectal fistula; Gastroparesis Discharge Disposition: Discharge to home or self care 12/26/2024 6:40 AM CDT Lab [facility] [address] [place] [phone] Dialysis patient; Pre-procedure lab exam 12/26/2024 Results Follow-Up [facility] Gastroenterology [address] [place] [address] 12th [place] [address] [place] [address] Abdomen and Pelvis Enterography W Contrast 12/25/2024 11:57 AM CDT - 12/25/2024 11:59 PM CDT Hospital Encounter [facility] [address] [place] [address] Perirectal fistula Discharge Disposition: Discharge to home or self care 12/22/2024 12:28 PM CDT - 12/22/2024 11:59 PM CDT Hospital Encounter [address] [address] Closed displaced trimalleolar fracture of right ankle, initial encounter; Acute right ankle pain; Flat foot (pes planus) (acquired), right foot Discharge Disposition: Discharge to home or self care 12/22/2024 12:27 PM CDT - 12/22/2024 11:59 PM CDT Hospital Encounter [address] [address] Lisfranc dislocation, right, initial encounter; Acute pain of right foot; Flat foot (pes planus) (acquired), right foot Discharge Disposition: Discharge to home or self care 12/22/2024 Orders Only [facility] Health Information Management [address] [place] [address] Edgardo Aldridge MD 12/20/2024 Telephone [facility] Transplant Kidney [address] [facility] [address] Mailstop [phone] [place] [address] Julissa Urban Referral - Kidney Txp 12/19/2024 Telephone [facility] Specialty Services [address] [place] [phone] Bri Anton RN GI PROCEDURE 7 DAY PRE CALL 12/07/2024 1:00 PM CDT Office Visit [facility] Orthopedics and Sports Medicine [address] [place] [address] [address] [place] [phone] Raul Clark DO Acute pain of right foot (Primary Dx); Right ankle pain, unspecified chronicity; Lisfranc dislocation, right, initial encounter; Closed displaced trimalleolar fracture of right ankle, initial encounter; Acute right ankle pain; Flat foot (pes planus) (acquired), right foot 12/07/2024 12:51 PM CDT - 12/07/2024 11:59 PM CDT Hospital Encounter [facility] Di[facility] Imaging [address] [place] [address] Right ankle pain, unspecified chronicity Discharge Disposition: Discharge to home or self care 12/05/2024 Telephone [facility] Transplant Kidney [address] [facility] [address] Mailstop [phone] [place] [address] Julissa Urban Referral - Kidney Txp 11/28/2024 Telephone [facility] Nephrology at [address] [place] [address] Odilon Tellez MD 11/23/2024 Results Follow-Up [facility] Family Medicine at [address] [place] [address] Edgardo Aldridge MD SCAN - RADIOLOGY/IMAGING 11/22/2024 Results Follow-Up [facility] Family Medicine at [address] [place] [address] Edgardo Aldridge MD XR Ankle Right 3+ Vw 11/21/2024 Orders Only [facility] Family Medicine at [address] [place] [address] Edgardo Aldridge MD Crushing injury of right foot and ankle, subsequent encounter 11/16/2024 12:05 AM CDT - 11/16/2024 11:59 PM CDT Hospital Encounter [facility] [address] [place] [address] Discharge Disposition: Discharge to home or self care 11/16/2024 - 11/16/2024 11:59 PM CDT Hospital Encounter [facility] [address] [place] [address] Discharge Disposition: Discharge to home or self care 11/16/2024 Orders Only [facility] Health Information Management [address] [place] [address] Edgardo Aldridge MD 11/14/2024 Telephone [facility] at [address] [place] [address] Edgardo Aldridge MD 11/13/2024 Telephone [facility] Medicine at [address] [place] [phone] Edgardo Aldridge MD 3rd No Show Letter sent to patient 11/13/2024 Results Follow-Up [facility] at [address] [place] [address] Chest WO Contrast 11/09/2024 Telephone [facility] at [address] [place] [phone] Edgardo Aldridge MD Additional Services Or Orders 11/09/2024 Telephone [facility] at [address] [place] [phone] Edgardo Aldridge MD Medical Question/Miscellaneou s 11/08/2024 Orders Only [facility] [address] 12th [place] [address] [place] [address] Yareli Jones CMA Perirectal fistula (Primary Dx) 11/06/2024 9:00 AM CDT Office Visit [facility] [address] 12th [place] [address] [place] [address] Young Vasquez MD Gastroparesis (Primary Dx); Perirectal fistula; Diabetic gastroparesis (HCC); Diarrhea, unspecified type 11/03/2024 Telephone [facility] at [address] [place] [phone] Edgardo Aldridge MD Medical Question/Miscellaneou s 11/02/2024 Telephone [facility] at [address] [place] [phone] Edgardo Aldridge MD JACKELYN Questions 10/29/2024 10:16 AM CDT - 11/05/2024 10:34 AM CDT Hospital Encounter [facility] [address] [facility] [place] [address] Nathan Moore MD Griffey, MD Helio Guevara, MD Freddy Villagran Edward, MD PhD Dutch Blake MD Nausea and vomiting, unspecified vomiting type (Primary Dx); Gastroparesis; Type 1 diabetes mellitus with other specified complication (HCC) Discharge Disposition: Discharge to home or self care 10/27/2024 9:15 AM CDT - 10/27/2024 11:59 PM CDT Hospital Encounter [facility] [address] [place] [address] Gastroparesis due to secondary diabetes (HCC); Presence of neurostimulator; Encounter for adjustment and management of neurostimulator Discharge Disposition: Discharge to home or self care 10/27/2024 8:45 AM CDT Office Visit [facility] - [facility] [address] [place] [address] 12th Floor, [place] [address] Micaela Suero NP Gastroparesis due to secondary diabetes (HCC) (Primary Dx); Presence of neurostimulator; Encounter for adjustment and management of neurostimulator 10/27/2024 Telephone [facility] - [facility] [address] [place] [address] 12th Floor, [place] [address] Micaela Suero NP 10/26/2024 Telephone [facility]) - [facility] [address] [place] [address] 12th Floor, [place] [address] Andrei Chaves MD PhD Medical Question/Miscellaneou s 10/25/2024 10:45 AM CDT Office Visit [facility] at [address] [place] [address] Edgardo Aldridge MD Diabetic ketoacidosis without coma associated with type 1 diabetes mellitus (HCC) (Primary Dx); ESRD on dialysis (HCC); Gastroparesis; Crushing injury of right foot and ankle, subsequent encounter; Osteoporosis without current pathological fracture, unspecified osteoporosis type; Exocrine pancreatic insufficiency 10/13/2024 Telephone [facility] Medicine at [address] [place] [address] Edgardo Aldridge MD JACKELYN Questions 10/05/2024 Telephone [facility] Metabolism and Lipid [address] 13th [place] [address] [place] [phone] 10/05/2024 Telephone [facility] at [address] [place] [phone] Edgardo Aldridge MD Medical Question/Miscellaneou s 10/03/2024 Orders Only [facility] - [facility] [address] 12th [address], [place] [address] Tonia Ramos RMA from Last 3 Months Immunizations Immunization Administration Dates Next Due DTP [...] 05/22/2016 Polio, Unspecified 01/17/1998,07/10/1996, 996 Varicella 10/12/1996 Surgical History Surgery Date Site/Laterality Comments PORTACATH PLACEMENT PORTACATH PLACEMENT 04/22/2020 [employer] CHOLECYSTECTOMY TUNNELED VENOUS CATHETER PLACEMENT 11/03/2023 Right RIJ permacath - Dr. Skip Huddleston US GUIDED THORACENTESIS 10/19/2022 N/A Medical History Medical History Date Comments Insulin dependent diabetes mellitus Gastroparesis Irritable bowel syndrome Tachycardia Hypertension History of transfusion Covid-19 01/26/2020 Concussion with loss of consciousness 11/08/2018 Anemia Chronic kidney disease Nausea & vomiting 05/07/2019 Abdominal pain, generalized 04/05/2023 Nausea and vomiting, unspecified vomiting type 0 05/03/2023 Intractable cyclical vomiting with nausea 2023 Nausea & vomiting 03/26/2023 Nausea and vomiting 07/25/2023 Acute respiratory failure 11/30/2011 GERD (gastroesophageal reflux disease) Thompson esophagus Family History Medical History Relation Name Comments Epilepsy Brother 1 No Known Problems Brother 2 Hypertension Father's Brother Heart disease Maternal Grandmother Molly Hypertension Mother's Sister Diabetes Paternal Grandmother Heart disease Paternal Grandmother Hypertension Paternal Grandmother Anesthesia problems Neg Hx Relation Name Status Comments Brother 1 Alive Brother 2 Alive Father Alive Father's Brother Maternal Grandmother Molly Mother Alive Mother's Sister Paternal Grandmother Social History Tobacco Use Types Packs/Day Years Used Date Smoking Tobacco: Never Smokeless Tobacco: Never Tobacco Cessation:Counseling Given: Not Answered Alcohol Use Standard Drinks/Week Comments Not Currently 0 (1 standard drink = 0.6 oz pur e alcohol) [facility] Utilities Answer Date Recorded In the past 12 months has [employer] electric, gas, oil, or water company threatened to shut off services in your [...] often do you attend chur ch or roman catholic services? Never 11/07/2024 Do you belong to any clubs o r organizations such as denominational groups, unions, fraternal or athletic groups, or [...] Date Recorded PHQ-2 Total Score 0 11/01/2024 [facility] - Occupational Stress [...] place to sleep or slept in a skilled nursing (including now)? No 08/30/2023 PHQ-9 Answer Date [...] any time in the past 12 m [facility], were you homeless or living in a skilled nursing (including now)? 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 Gender Identity Not on file Sexual Orientation Not on file Obstetrics History Para Term AB IAB SAB Ectopic Multiple Livin g Live Births 0 0 0 0 0 0 0 0 0 0 0 Last Filed Vital Signs Vital Sign Reading [...] Mass Index 23.17 12/26/2024 8:17 AM CDT Plan of Treatment Health Maintenance Due Date Last Done Comments Albumin Creatinine Ratio, Urine 1995 Cervical Cancer Screening 1995 Foot Exam 1995 Varicella Vaccines (2 of 2 - 2-dose childhood series) 12/31/2000 10/12/1996 Dilated Eye Exam 06/16/2005 DTaP/Tdap/Td Vaccine (6 - Tdap) 06/16/2006 12/03/2000, 01/17/1998, 07/10/1996, Additional history exists Regular Well Visit/Exam 18-64 06/16/2013 Pneumococcal vaccine <65 (1 of 2 - PCV) 06/16/2014 HPV Vaccines (1 - 3-dose SCD M series) 06/16/2022 Covid-19 Vaccine (2 - 2024-2 6 season) 2024 01/24/2021 Influenza Vaccine (#1) 2024 , 02/16/2023, 02/14/2021, Additional history exists Hemoglobin A1C 05/02/2025 10/30/2024, 10/17, 07/28/2024, Additional history exists Depression Screening 10/29/2025 10/29/2024, 2024, 2024, Additional history exists Lipid Panel 12/04/2025 12/04/2024, 10/17, 09/23/2023, Additional history exists TSH Level 12/10/2025 12/10/2024, 07/0 05/2024, 08/20/2024, Additional history exists eGFR 12/26/2025 12/26/2024, 10/17, 11/03/2024, Additional history exists Hepatitis C Screening Completed 12/24/2023 , 11/29/2023, 05/25/2023, Additional history exists Hepatitis B Screening Completed 10/31/2024 , 09/02/2023, 07/20/2023, Additional history exists Goals Goal Patient Goal Type Associated Problems Recent Progress Patient-Stated? Author JACKELYN General Goal - Patient schedules and keeps appointments with all recommended providers ACO Care Management On track(2024 9:00 AM CDT) Mendel Jerez, KADY Note: Problem: Potential for medical complications and readmission if follow-up appointments are not scheduled Interventions: - Ensure all follow-up appointments are scheduled, all prescribed medications have been received. - Address any barriers for keeping scheduled appointment. - Coordinate with patient/caregiver(s) to ensure patient is able to keep scheduled appointment. - Emphasize importance of keeping scheduled appointments. - Identify and discuss questions for next provider visit. - Follow up with patient after scheduled appointment(s) to review any new orders or changes made to medication regimen. JACKELYN General Goal - Patient will have no medication-related complications due to new high risk medication usage (narcotics) ACO Care Management On track(2024 9:00 AM CDT) Mendel Jerez, RN Note: Problem: High Risk medication - Narcotics Interventions: - Review narcotic order with patient in detail and ensure patient is taking the medication correctly. - Assess pain level compared to narcotic pain medication administration. - Report any significant pain or medication side effects to physician for recommendations. - Provide education on potential side effects of narcotic usage: unsteady gait, falls, decreased respiratory rate, decreased oxygen levels, confusion, lightheadedness and drowsiness. - Common side effect is constipation; ensure patient is taking a stool softener/laxative to prevent bowel issues. Medical Devices Implanted Type Area Internet Developer Device Identifier Shelf Expiration Date Model / Serial / Lot Raquel Lyric Trialysis 13fr 24cm Dialysis Tray Catheter Sterile Short Term [id number] - [id number] Implanted:Qty: 1 on 10/27/2023 by Juan Long MD at [facility] Catheter Right: Groin Raquel Yuba [id number] 07/17/2024 [id number] / / [id number] [employer] Symmetry Vesolock Large Clip Internal [id number] - Sn/A - [id number] Implanted:Qty: 1 on 10/05/2022 by Andrei Chaves MD PhD at [facility] Clip N/A: Abdomen [employer] 04/19/2025 [id number] / N/A / [employer] Enterra 35cm Lead Unipolar Kit Stimulator 4351-35 - [id number] - [id number] Implanted:Qty: 1 on 10/05/2022 by Andrei Chaves MD PhD at [facility] Stimulator N/A: Abdomen [employer] 06/04/2024 4351-35 / [id number] / [employer] Enterra 35cm Lead Unipolar Kit Stimulator 4351-35 - [id number] - [id number] Implanted:Qty: 1 on 10/05/2022 by Andrei Chaves MD PhD at [facility] Stimulator N/A: Abdomen [employer] 08/10/2024 4351-35 / [id number] 2V / [employer] Inc Neurostimulator Implantable 2.4inx2.2in Enterra Ii Gastric 24798 - [id number] - [id number] Implanted:Qty: 1 on 10/05/2022 by Andrei Chaves MD PhD at [facility] Stimulator N/A: Abdomen [employer] 11/30/2022 [id number] / [id number] / N/A [employer] Dur[employer]low Embosafe 15.5fr 24cm Basic 2 Lumen Kit Catheter [id number] - [id number] Implanted:Qty: 1 on 11/03/2023 by Skip Huddleston MD at [facility] [employer] 01/16/2026 [id number] / / Procedures Procedure Name Priority Date/Time Associated Diagnosis Comments POCT GLUCOSE DEVICE Routine 12/26/2024 9:47 AM CDT COLONOSCOPY 12/26/2024 9:16 AM CDT OK AN PROCEDURE PLACEHOLDER Routine 12/2024 9:02 AM CDT OK AN ELECTIVE ENDOTRACHEAL AIRWAY Routine 12/26/2024 9:02 [...] PM CDT CBC WITH AUTO DIFFERENTIAL Routine 07/18 /2025 10:59 PM CDT BASIC METABOLIC PANEL Routine [...] or Most Recently Relevant to Health Maintenance Results * POCT glucose (12/26/2024 9:47 AM CDT) Glucose, POC 197 70 - 199 mg/dL Blood 12/26/2024 9:47 AM CDT 12/26/2024 9:47 AM CDT Young Vasquez MD LAB POCT ORDERABLES - DEVICE Final Result [facility] Department [place] [address] * Colonoscopy (12/26/2024 9:16 AM CDT) Anatomical Region Laterality Modality Other Narrative Procedure Note Young Vasquez MD - 12/26/2024 9:16 AM CDT [facility] ENDOSCOPY [facility] Patient Name: Brissa Angela Procedure Date: 12/26/2024 9:16 AM Date of : 1995 Admit Type: Outpatient Age: 29 Gender: Female Attending MD: Young Vasquez M.D., Room: [facility] ENDOSCOPY ROOM 8 Note Status: Finalized Procedure: [...] was passed under direct vision.The PCF [id number] endoscope was introduced through the anus and [...] 0 Note Initiated On: 12/26/2024 9:16 AM us Young Vasquez MD ENDOSCOPY PROCEDURES F inal Result * OK AN ELECTIVE ENDOTRACHEAL AIRWAY, OK AN PROCEDURE PLACEHOLDER (12/26/2024 9:02 AM CDT) Narrative Federico Beltran CRNA - 12/26/2024 9:02 AM CDT Federico Beltran CRNA 12/26/2024 9:03 AM Airway Patient location: OR Urgency: elective Indications for airway management: anesthesia Difficult airway: no Staff: Supervising provider: Dylan Frias MD Placed by: STAINED GLASS ARTIST: Federico Beltran CRNA Emergent airway documentation: Risks [...] Biopsy) 12/26/2024 9:25 AM CDT Narrative [facility] - 12/27/2024 6:13 PM CDT EPIC results best viewed via link to PDF [facility] [place] [address] Note to Patients: This report may contain [...] Gender: F : 1995 (Age: 29) Address: [address] [place] [address] Hospital #: [id number] Taken:12/26/2024 Received:12/26/2024 Reported: 12/27/2024 Patient Type: [facility] Service: Gastro Location: Physician(s): Young Vasquez M.D. Edgardo Aldridge M.D. Diagnosis: A. Small intestine, biopsy: - [...] - Colonic mucosa with no significant abnormality. talia12/27/2024 07:29 By this signature, I attest that [...] in greatest dimension. Labeled E1. Jar 0. elsw12/26/2024 11:42 PA(s): Saima Gtz By this signature, I attest that the above diagnosis is based upon my personal examination of the slides(and/or other material). Addenda/Procedures The performance characteristics of some immunohistochemical stains, fluorescence in-situ hybridization tests and immunophenotyping by flow cytometry cited in this report (if any) were determined by the Surgical Pathology and Flow Cytometry Departments at [facility] as part of an ongoing quality control technician program and in compliance with federally mandated [...] Surgical Pathology and Flow Cytometry Departments of [facility]. It has not been cleared or approved by the U. S. Food and Drug Administration. IMAGES AND SCANNED DOCUMENTS, IF INCLUDED, ONLY VIEWABLE IN PDF VERSION OF REPORT Young Vasquez MD LAB PATHOLOGY ORDERABL ES Final Result PATHOLOGY [facility] 3rd Floor [place], [place] [phone] * EGD (12/26/2024 8:55 AM CDT) Anatomical Region Laterality Modality Other Narrative Procedure Note Young Vasquez MD - 12/26/2024 8:55 AM CDT GI [facility] Patient Name: Brissa Angela Procedure Date: 12/26/2024 8:55 AM Date of : 1995 Admit Type: Outpatient Age: 29 Gender: Female Attending MD: Young Vasquez M.D., Room: [facility] ENDOSCOPY ROOM 8 Note Status: Finalized Procedure: [...] 0 Note Initiated On: 12/26/2024 8:55 AM Young Vasquez MD ENDOSCOPY PROCEDURES F inal Result * (ABNORMAL) POCT hCG, urine (12/26/2024 8:43 AM CDT) HCG, ur, POC Negative Negative Lot Number [id number] QC Backgroud Clear Acceptable QC Control Line Acceptable Urine 12/26/2024 8:43 AM CDT Young Vasquez MD POINT OF CARE TEST ORD ERABLES Final Result * POCT glucose (12/26/2024 8:41 AM CDT) Glucose, POC 102 70 - 199 mg/dL Blood 12/26/2024 8:41 AM CDT 12/26/2024 8:41 AM CDT Young Vasquez MD LAB POCT ORDERABLES - DEVICE Final Result Performing Organization Address City/State/[facility] de Phone Number [facility] Department [place] [address] * (ABNORMAL) POCT glucose (12/26/2024 7:53 AM CDT) Glucose, POC 67(L) 70 - 199 mg/dL Blood 12/26/2024 7:53 AM CDT 12/26/2024 7:53 AM CDT Young Vasquez MD LAB POCT ORDERABLES - DEVICE Final Result Performing Organization Address City/[facility] Co de Phone Number [facility] Department [place] [address] * (ABNORMAL) eGFR (12/26/2024 7:03 AM CDT) [...] MD LAB BLOOD ORDERABLES F inal Result Performing Organization Address City/[facility]/ZIP Co de Phone Number [facility] Department [place] [address] * (ABNORMAL) Comprehensive metabolic panel (12/26/2024 7:03 AM CDT) Sodium 129(L) 135 - 145 mmol/L Potassium, pl 4.8 3.3 - 4.9 mmol/L [facility] Comment:Hemolyzed; Potassium value may be falsely elevated by as much as 0.6-1.0 mmol/L. Suggest redraw and reanalysis. Chloride 94(L) 97 - 110 mmol/L [facility] CO2 25 22 - 32 mmol/L [facility] Anion gap 10 2 - 15 mmol/L [facility] BUN 18 6 - 25 mg/dL [facility] Creatinine 6.44(H) 0.60 - 1.10 mg/dL [facility] Glucose 110 70 - 199 mg/dL [facility] Comment: Interpretive Data Fasting glucose >/= 126 [...] 2022. Calcium 8.2(L) 8.5 - 10.3 mg/dL [facility] Bilirubin, total 0.4 0.1 - 1.2 mg/dL [facility] Protein, pl 7.9 6.5 - 8.5 g/dL [facility] Albumin 3.7 3.5 - 5.0 g/dL [facility] Alk phos 181(H) 40 - 130 Units/L [facility] ALT 18 7 - 45 Units/L [facility] AST 31 10 - 45 Units/L [facility] Comment:Hemolyzed; result ma y be falsely elevated Blood 12/26/2024 7:03 AM CDT 12/26/2024 7:04 AM CDT us Young Vasquez MD LAB BLOOD ORDERABLES F inal Result [facility] Department [place] [address] * CT Abdomen and Pelvis Enterography W [...] 2:09 PM - Electronically signed by Mahin WalkerD. JA T: Report ID: [id number] Reading Location: [place] [address] Procedure Note Mahin Balderrama MD - 12/22/2024 [...] signed by Mahin CORDOVA T: Report ID: [id number] Reading Location: [place] [address] Raul Clark DO IMG CT PROCEDURES Final [...] 2:09 PM - Electronically signed by Mahin Balderrama M.D. JA T: Report ID: [id number] Reading Location: [id number] Procedure Note Mahin Balderrama MD - 12/22/2024 [...] signed by Mahin CORDOVA T: Report ID: [id number] Reading Location: [id number] Raul Clark DO IMG CT PROCEDURES Final Result * SCAN - RADIOLOGY/IMAGING (12/22/2024) Anatomical Region Laterality Modality Other Edgardo Aldridge MD Edited Result - Final [...] by Andrei Nguyen M.D. T: Report ID: [id number] Reading Location: [id number] Procedure Note Andrei Nguyen MD - 12/10/2024 [...] by Andrei Nguyen M.D. T: Report ID: [id number] Reading Location: [place] [address] Raul Clark DO IMG XR PROCEDURES Final [...] by Andrei Nguyen M.D. T: Report ID: [id number] Reading Location: [id number] Procedure Note Anderi Nguyen MD - 12/10/2024 EXAM DESCRIPTION: 1. [...] by Andrei Nguyen M.D. T: Report ID: [id number] Reading Location: [id number] Raul Silvanoyani DO IMG XR PROCEDURES Final Result * XR Ankle Right 3+ Vw (11/21/2024 5:34 PM CDT) Anatomical Region Laterality Modality Lower Extremities, Ankle Right Radiogr aphic Imaging Edgardo Aldridge MD IMG XR PROCEDURES Final Resul t * XR Outside Reference (11/16/2024 12:05 AM CDT) Narrative RAD_CLARTAMAR_[email or web address]_MHE - 12/07/2024 1:05 PM CDT This order has been auto-finalized and does not contain a result. Provider Transcribed Order IMG XR PROCEDURES Fin al Result Performing Organization Address [facility] Co de Phone Number [email or web address] * SCAN - RADIOLOGY/IMAGING (11/16/2024) Anatomical Region Laterality Modality Other Edgardo Aldridge MD Final Result * XR Outside Reference (11/16/2024 12:00 AM CDT) Narrative RAD_MELISSA_MARKELLB_MHE - 12/07/2024 1:05 PM CDT This order has been auto-finalized and does not contain a result. us Provider Transcribed Order IMG XR PROCEDURES Fin al Result Performing Organization Address [facility]/ZIP Co de Phone Number [email or web address] * CT Chest WO Contrast (11/11/2024) Anatomical Region Laterality Modality Body N/A Computed Tomogra phy Sotero Jarvis MD IMG CT PROCEDURES Final R esult * (ABNORMAL) POCT glucose (11/05/2024 7:20 AM CDT) Glucose, POC 366(H) 70 - 199 mg/dL Blood 11/05/2024 7:20 AM CDT 11/05/2024 7:20 AM CDT Dutch Blake MD LAB POCT ORDERABLES - DEVICE Final Result Performing Organization Address City/[facility] Co de Phone Number [facility] [place] [address] * POCT glucose (11/05/2024 2:37 AM CDT) Glucose, POC 175 70 - 199 mg/dL Blood 11/05/2024 2:37 AM CDT 11/05/2024 2:37 AM CDT Dutch Blake MD LAB POCT ORDERABLES - DEVICE Final Result Performing Organization Address [facility] de Phone Number [facility] Department [place] [employer] [place] [place] [address] * (ABNORMAL) eGFR (11/04/2024 9:18 PM CDT) [...] 9:18 PM CDT 11/04/2024 10:06 PM CDT Luciano Hayes MD PhD LAB BLOOD ORDERABLES Final Result [facility] [place] [address] * Differential, auto (11/04/2024 9:18 PM CDT) Neutrophil abs 5.81 1.50 - 6.50 K/cumm Imm gran abs 0.04 0.00 - 0.10 K/cumm [facility] Lymphocyte abs 1.45 0.80 - 3.30 K/cumm [facility] Monocyte abs 0.63 0.20 - 0.80 K/cumm [facility] Eosinophil abs 0.33 0.00 - 0.50 K/cumm [facility] Basophil abs 0.02 0.00 - 0.10 K/cumm [facility] Neutrophil pct 70.2 % [facility] Comment: Interpretive Data Percent cell count reference ranges are not reported, since discordance with absolute values may lead to misinterpretation of CBC data. Current Interpretive Data was last revised on 2017. Imm gran pct 0.5 % [facility] Comment: Interpretive Data Percent cell count reference ranges are not reported, since discordance with absolute values may lead to misinterpretation of CBC data. Current Interpretive Data was last revised on 2017. Lymphocyte pct 17.5 % [facility] Comment: Interpretive Data Percent cell count reference ranges are not reported, since discordance with absolute values may lead to misinterpretation of CBC data. Current Interpretive Data was last revised on 2017. Monocyte pct 7.6 % [facility] Comment: Interpretive Data Percent cell count reference ranges are not reported, since discordance with absolute values may lead to misinterpretation of CBC data. Current Interpretive Data was last revised on 2017. Eosinophil pct 4.0 % [facility] Comment: Interpretive Data Percent cell count reference ranges are not reported, since discordance with absolute values may lead to misinterpretation of CBC data. Current Interpretive Data was last revised on 2017. Basophil pct 0.2 % [facility] Comment: Interpretive Data Percent cell count reference ranges are not reported, since discordance with absolute values may lead to misinterpretation of CBC data. Current Interpretive Data was last revised on 2017. Blood 11/04/2024 9:18 PM CDT 11/04/2024 10:29 PM CDT us Luciano Hayes MD PhD LAB BLOOD ORDERABLES Final Result Performing Organization Address City/[facility]/ZIP Co de Phone Number [facility] [place] [address] * (ABNORMAL) CBC with auto differential (11/04/2024 9:18 PM CDT) WBC 8.28 3.80 - 9.90 K/cumm Hgb 8.8(L) 11.9 - 15.5 g/dL [facility] Hct 27.1(L) 35.6 - 45.5 % [facility] Plt 218 150 - 400 K/cumm [facility] MPV 11.1 9.1 - 12.3 fL [facility] RBC 3.15(L) 3.90 - 5.20 M/cumm [facility] MCV 86.0 81.3 - 96.4 fL [facility] MCH 27.9 27.1 - 33.3 pg [facility] MCHC 32.5 32.3 - 35.7 g/dL [facility] RDW CV 16.2(H) 11.1 - 14.9 % [facility] RDW SD 51.3(H) 35.7 - 48.1 fL [facility] NRBC abs 0.00 0.00 - 0.01 K/cumm [facility] Blood 11/04/2024 9:18 PM CDT 11/04/2024 10:29 PM CDT Luciano Hayes MD PhD LAB BLOOD ORDERABLES Final Result [facility] [place] [address] * (ABNORMAL) Basic metabolic panel (11/04/2024 9:18 PM CDT) Pathologist [facility] Sodium 141 135 - 145 mmol/L Potassium, pl 4.2 3.3 - 4.9 mmol/L [facility] Chloride 100 97 - 110 mmol/L [facility] CO2 30 22 - 32 mmol/L [facility] Anion gap 11 2 - 15 mmol/L [facility] BUN 13 6 - 25 mg/dL [facility] Creatinine 3.27(H) 0.60 - 1.10 mg/dL [facility] Glucose 241(H) 70 - 199 mg/dL [facility] Comment: Interpretive Data Fasting glucose >/= 126 [...] 2022. Calcium 8.2(L) 8.5 - 10.3 mg/dL [facility] Blood 11/04/2024 9:18 PM CDT 11/04/2024 10:06 PM CDT Luciano Hayes MD PhD LAB BLOOD ORDERABLES Final Result [facility] Department [place] [address] * (ABNORMAL) POCT glucose (11/04/2024 9:16 PM CDT) Glucose, POC 231(H) 70 - 199 mg/dL Blood 11/04/2024 9:16 PM CDT 11/04/2024 9:16 PM CDT Dutch Blake MD LAB POCT ORDERABLES - DEVICE Final Result Performing Organization Address [facility] de Phone Number [facility] [place] [address] * (ABNORMAL) POCT glucose (11/04/2024 6:50 PM CDT) Glucose, POC 380(H) 70 - 199 mg/dL Blood 11/04/2024 6:50 PM CDT 11/04/2024 6:50 PM CDT Dutch Blake MD LAB POCT ORDERABLES - DEVICE Final Result Performing Organization Address [facility] Phone Number [facility] [place] [address] * POCT glucose (11/04/2024 3:55 PM CDT) Glucose, POC 184 70 - 199 mg/dL Blood 11/04/2024 3:55 PM CDT 11/04/2024 3:55 PM CDT Dutch Blake MD LAB POCT ORDERABLES - DEVICE Final Result Performing Organization Address [facility] Phone Number [facility] [place] [place] [address] * POCT glucose (11/04/2024 12:51 PM CDT) Glucose, POC 122 70 - 199 mg/dL Blood 11/04/2024 12:5 1 PM CDT 11/04/2024 12:51 PM CDT Dutch Blake MD LAB POCT ORDERABLES - DEVICE Final Result Performing Organization Address [facility]/ZIP Co de Phone Number [facility] Department [place] [address] * POCT glucose (11/04/2024 7:16 AM CDT) [facility] Glucose, POC 107 70 - 199 mg/dL Blood 11/04/2024 7:16 AM CDT 11/04/2024 7:16 AM CDT Dutch Blake MD LAB POCT ORDERABLES - DEVICE Final Result Performing Organization Address City/[facility]/ZIP Co de Phone Number [facility] [place] [address] * POCT glucose (11/04/2024 2:03 AM CDT) [facility] Glucose, POC 145 70 - 199 mg/dL Comment:Glu2: RN/MD Notified Glucose comment 1 Glu2: RN/MD Notified [facility] Blood 11/04/2024 2:03 AM CDT 11/04/2024 2:03 AM CDT Dutch Blake MD LAB POCT ORDERABLES - DEVICE Final Result Performing Organization Address City/[facility] Co de Phone Number [facility] [place] [address] * (ABNORMAL) eGFR (11/03/2024 10:59 PM CDT) [facility] eGFR 9(L) >=60 mL/min/1. 73 m2 Comment: [...] of Race in Diagnosing Kidney Disease, JASN 202). The CKD-EPI equation should not be used for patients with unstable renal function and has not been validated in children and those over 70. Current interpretive data was last reviewed 2021. Blood 11/03/2024 10:5 9 PM CDT 11/04/2024 12:06 AM CDT us Luciano Hayes MD PhD LAB BLOOD ORDERABLES Final Result [facility] [place] [address] * Differential, auto (11/03/2024 10:59 PM CDT) Neutrophil abs 3.37 1.50 - 6.50 K/cumm Imm gran abs 0.01 0.00 - 0.10 K/cumm [facility] Lymphocyte abs 2.13 0.80 - 3.30 K/cumm [facility] Monocyte abs 0.62 0.20 - 0.80 K/cumm [facility] Eosinophil abs 0.34 0.00 - 0.50 K/cumm [facility] Basophil abs 0.02 0.00 - 0.10 K/cumm [facility] Neutrophil pct 51.9 % [facility] Comment: Interpretive Data Percent cell count reference ranges are not reported, since discordance with absolute values may lead to misinterpretation of CBC data. Current Interpretive Data was last revised on 2017. Imm gran pct 0.2 % [facility] Comment: Interpretive Data Percent cell count reference ranges are not reported, since discordance with absolute values may lead to misinterpretation of CBC data. Current Interpretive Data was last revised on 2017. Lymphocyte pct 32.8 % [facility] Comment: Interpretive Data Percent cell count reference ranges are not reported, since discordance with absolute values may lead to misinterpretation of CBC data. Current Interpretive Data was last revised on 2017. Monocyte pct 9.6 % [facility] Comment: Interpretive Data Percent cell count reference ranges are not reported, since discordance with absolute values may lead to misinterpretation of CBC data. Current Interpretive Data was last revised on 2017. Eosinophil pct 5.2 % [facility] Comment: Interpretive Data Percent cell count reference ranges are not reported, since discordance with absolute values may lead to misinterpretation of CBC data. Current Interpretive Data was last revised on 2017. Basophil pct 0.3 % [facility] Comment: Interpretive Data Percent cell count reference ranges are not reported, since discordance with absolute values may lead to misinterpretation of CBC data. Current Interpretive Data was last revised on 2017. Blood 11/03/2024 10:5 9 PM CDT 11/04/2024 12:07 AM CDT us Luciano Hayes MD PhD LAB BLOOD ORDERABLES Final Result [facility] [place] [address] * (ABNORMAL) CBC with auto differential (11/03/2024 10:59 PM CDT) WBC 6.49 3.80 - 9.90 K/cumm Hgb 8.5(L) 11.9 - 15.5 g/dL [facility] Hct 27.2(L) 35.6 - 45.5 % [facility] Plt 219 150 - 400 K/cumm [facility] MPV 11.1 9.1 - 12.3 fL [facility] RBC 3.04(L) 3.90 - 5.20 M/cumm [facility] MCV 89.5 81.3 - 96.4 fL [facility] MCH 28.0 27.1 - 33.3 pg [facility] MCHC 31.3(L) 32.3 - 35.7 g/dL [facility] RDW CV 16.4(H) 11.1 - 14.9 % [facility] RDW SD 53.7(H) 35.7 - 48.1 fL [facility] NRBC abs 0.00 0.00 - 0.01 K/cumm [facility] Blood 11/03/2024 10:5 9 PM CDT 11/04/2024 12:07 AM CDT us Luciano Hayes MD PhD LAB BLOOD ORDERABLES Final Result [facility] Department [place] [address] * (ABNORMAL) Basic metabolic panel (11/03/2024 10:59 PM CDT) [facility] Sodium 141 135 - 145 mmol/L Potassium, pl 4.3 3.3 - 4.9 mmol/L [facility] Chloride 103 97 - 110 mmol/L [facility] CO2 28 22 - 32 mmol/L [facility] Anion gap 10 2 - 15 mmol/L [facility] BUN 38(H) 6 - 25 mg/dL [facility] Creatinine 6.03(H) 0.60 - 1.10 mg/dL [facility] Glucose 224(H) 70 - 199 mg/dL [facility] Comment: Interpretive Data Fasting glucose >/= 126 [...] 2022. Calcium 7.9(L) 8.5 - 10.3 mg/dL [facility] Blood 11/03/2024 10:5 9 PM CDT 11/04/2024 12:06 AM CDT us Luciano Hayes MD PhD LAB BLOOD ORDERABLES Final Result [facility] [place] [address] * (ABNORMAL) POCT glucose (11/03/2024 8:37 PM CDT) Glucose, POC 254(H) 70 - 199 mg/dL Comment:Glu2: RN/ Notified Glucose comment 1 Glu2: RN/MD Notified [facility] Blood 11/03/2024 8:37 PM CDT 11/03/2024 8:37 PM CDT Dutch Blake MD LAB POCT ORDERABLES - DEVICE Final Result Performing Organization Address [facility] Co de Phone Number [facility] [place] [address] * (ABNORMAL) POCT glucose (11/03/2024 4:17 PM CDT) Glucose, POC 290(H) 70 - 199 mg/dL Blood 11/03/2024 4:17 PM CDT 11/03/2024 4:17 PM CDT Dutch Blake MD LAB POCT ORDERABLES - DEVICE Final Result Performing Organization Address [facility] Co de Phone Number [facility] Department [place] [address] * (ABNORMAL) POCT glucose (11/03/2024 11:20 AM CDT) Glucose, POC 222(H) 70 - 199 mg/dL Comment:Glu2: RN/ Notified Glucose comment 1 Glu2: RN/ Notified [facility] Blood 11/03/2024 11:2 0 AM CDT 11/03/2024 11:20 AM CDT Dutch Blake MD LAB POCT ORDERABLES - DEVICE Final Result [facility] [place] [address] * (ABNORMAL) POCT glucose (11/03/2024 9:35 AM CDT) Glucose, POC 224(H) 70 - 199 mg/dL Blood 11/03/2024 9:35 AM CDT 11/03/2024 9:35 AM CDT us Dutch Blake MD LAB POCT ORDERABLES - DEVICE Final Result Performing Organization Address [facility] [place] [address] * (ABNORMAL) POCT glucose (11/03/2024 8:21 AM CDT) Glucose, POC 64(L) 70 - 199 mg/dL Blood 11/03/2024 8:21 AM CDT 11/03/2024 8:21 AM CDT us Dutch Blake MD LAB POCT ORDERABLES - DEVICE Final Result Performing Organization Address [facility] Co de Phone Number [facility] [place] [address] * POCT glucose (11/03/2024 7:21 AM CDT) Glucose, POC 125 70 - 199 mg/dL Blood 11/03/2024 7:21 AM CDT 11/03/2024 7:21 AM CDT us Dutch Blake MD LAB POCT ORDERABLES - DEVICE Final Result Performing Organization Address City/[facility] Co de Phone Number [facility] [place] [address] * (ABNORMAL) POCT glucose (11/03/2024 6:49 AM CDT) Glucose, POC 231(H) 70 - 199 mg/dL Blood 11/03/2024 6:49 AM CDT 11/03/2024 6:49 AM CDT Dutch Blake MD LAB POCT ORDERABLES - DEVICE Final Result Performing Organization Address [facility] Co de Phone Number [facility] [place] [address] * (ABNORMAL) POCT glucose (11/03/2024 5:37 AM CDT) Glucose, POC 467(C) 70 - 199 mg/dL Comment: Glu2: RN/MD Notified Critical Value Noted Glucose comment 1 Glu2: RN/MD Notified [facility] Glucose comment 2 Critical Value Noted [facility] Blood 11/03/2024 5:37 AM CDT 11/03/2024 5:37 AM CDT us Dutch Blake MD LAB POCT ORDERABLES - DEVICE Final Result Performing Organization Address [facility] de Phone Number [facility] [place] [address] * (ABNORMAL) POCT glucose (11/03/2024 3:39 AM CDT) Glucose, POC 536(C) 70 - 199 mg/dL Comment: Glu2: Critical Value Noted RN/MD Notified Glucose comment 2 RN/MD Notified [facility] Blood 11/03/2024 3:39 AM CDT 11/03/2024 3:39 AM CDT us Dutch Blake MD LAB POCT ORDERABLES - DEVICE Final Result Performing Organization Address City/[facility] Co de Phone Number [facility] [place] [address] * (ABNORMAL) eGFR (11/03/2024 2:25 AM CDT) Pathologist [facility] eGFR 14(L) >=60 mL/min/1. 73 m2 Comment: [...] MD PhD LAB BLOOD ORDERABLES Final Result [facility] [place] [address] * Differential, auto (11/03/2024 2:25 AM CDT) Pathologist [facility] Neutrophil abs 3.18 1.50 - 6.50 K/cumm Imm gran abs 0.02 0.00 - 0.10 K/cumm [facility] Lymphocyte abs 1.48 0.80 - 3.30 K/cumm [facility] Monocyte abs 0.57 0.20 - 0.80 K/cumm [facility] Eosinophil abs 0.21 0.00 - 0.50 K/cumm [facility] Basophil abs 0.01 0.00 - 0.10 K/cumm [facility] Neutrophil pct 58.1 % [facility] Comment: Interpretive Data Percent cell count reference ranges are not reported, since discordance with absolute values may lead to misinterpretation of CBC data. Current Interpretive Data was last revised on 2017. Imm gran pct 0.4 % [facility] Comment: Interpretive Data Percent cell count reference ranges are not reported, since discordance with absolute values may lead to misinterpretation of CBC data. Current Interpretive Data was last revised on 2017. Lymphocyte pct 27.1 % [facility] Comment: Interpretive Data Percent cell count reference ranges are not reported, since discordance with absolute values may lead to misinterpretation of CBC data. Current Interpretive Data was last revised on 2017. Monocyte pct 10.4 % [facility] Comment: Interpretive Data Percent cell count reference ranges are not reported, since discordance with absolute values may lead to misinterpretation of CBC data. Current Interpretive Data was last revised on 2017. Eosinophil pct 3.8 % [facility] Comment: Interpretive Data Percent cell count reference ranges are not reported, since discordance with absolute values may lead to misinterpretation of CBC data. Current Interpretive Data was last revised on 2017. Basophil pct 0.2 % [facility] Comment: Interpretive Data Percent cell count reference ranges are not reported, since discordance with absolute values may lead to misinterpretation of CBC data. Current Interpretive Data was last revised on 2017. Blood 11/03/2024 2:25 AM CDT 11/03/2024 4:01 AM CDT Luciano Hayes MD PhD LAB BLOOD ORDERABLES Final Result [facility] [place] [address] * Critical Result Callback Chemistry (11/03/2024 2:25 AM CDT) Date Notified [id number] Time Notified 435 HERBER JIMENEZ TestName Glucose [facility] JIMENEZ Called/Read Back Aaron JIMENEZ Credentials RN [facility] Called By [email or web address] [facility] Blood 11/03/2024 2:25 AM CDT 11/03/2024 4:02 AM CDT Luciano Hayes MD PhD LAB BLOOD ORDERABLES Final Result Performing Organization Address [facility] Co de Phone Number [facility] [place] [address] * (ABNORMAL) CBC with auto differential (11/03/2024 2:25 AM CDT) Pathologist [facility] WBC 5.47 3.80 - 9.90 K/cumm Hgb 8.9(L) 11.9 - 15.5 g/dL [facility] Hct 28.5(L) 35.6 - 45.5 % [facility] Plt 233 150 - 400 K/cumm [facility] MPV 10.9 9.1 - 12.3 fL [facility] RBC 3.23(L) 3.90 - 5.20 M/cumm [facility] MCV 88.2 81.3 - 96.4 fL [facility] MCH 27.6 27.1 - 33.3 pg [facility] MCHC 31.2(L) 32.3 - 35.7 g/dL [facility] RDW CV 16.4(H) 11.1 - 14.9 % [facility] RDW SD 53.1(H) 35.7 - 48.1 fL [facility] NRBC abs 0.00 0.00 - 0.01 K/cumm [facility] Blood 11/03/2024 2:25 AM CDT 11/03/2024 4:01 AM CDT Luciano Hayes MD PhD LAB BLOOD ORDERABLES Final Result Performing Organization Address City/[facility]/ZIP Co de Phone Number [facility] [place] [place] [address] * (ABNORMAL) Basic metabolic panel (11/03/2024 2:25 AM CDT) Sodium 135 135 - 145 mmol/L Comment:Sample investigated and found to be analytically accurate. If results do not match clinical presentation, improper collection (e.g., IV fluid contamination, improper tube type, mislabel) should be considered and re-collection recommended. Potassium, pl 4.7 3.3 - 4.9 mmol/L [facility] Comment:Sample investigated and found to be analytically accurate. If results do not match clinical presentation, improper collection (e.g., IV fluid contamination, improper tube type, mislabel) should be considered and re-collection recommended. Chloride 95(L) 97 - 110 mmol/L [facility] Comment:Sample investigated and found to be analytically accurate. If results do not match clinical presentation, improper collection (e.g., IV fluid contamination, improper tube type, mislabel) should be considered and re-collection recommended. CO2 29 22 - 32 mmol/L [facility] Comment:Sample investigated and found to be analytically accurate. If results do not match clinical presentation, improper collection (e.g., IV fluid contamination, improper tube type, mislabel) should be considered and re-collection recommended. Anion gap 11 2 - 15 mmol/L [facility] Comment:Sample investigated and found to be analytically accurate. If results do not match clinical presentation, improper collection (e.g., IV fluid contamination, improper tube type, mislabel) should be considered and re-collection recommended. BUN 21 6 - 25 mg/dL [facility] Comment:Sample investigated and found to be analytically accurate. If results do not match clinical presentation, improper collection (e.g., IV fluid contamination, improper tube type, mislabel) should be considered and re-collection recommended. Creatinine 4.22(H) 0.60 - 1.10 mg/dL [facility] Comment:Sample investigated and found to be analytically accurate. If results do not match clinical presentation, improper collection (e.g., IV fluid contamination, improper tube type, mislabel) should be considered and re-collection recommended. Glucose 700(C) 70 - 199 mg/dL [facility] Comment: Sample investigated and found to be [...] 2022. Calcium 7.4(L) 8.5 - 10.3 mg/dL [facility] Comment:Sample investigated and found to be analytically accurate. If results do not match clinical presentation, improper collection (e.g., IV fluid contamination, improper tube type, mislabel) should be considered and re-collection recommended. Blood 11/03/2024 2:25 AM CDT 11/03/2024 4:02 AM CDT Luciano Hayes MD PhD LAB BLOOD ORDERABLES Final Result Performing Organization Address City/[facility]/ZIP Co de Phone Number [facility] [place] [address] * (ABNORMAL) POCT glucose (11/03/2024 2:03 AM CDT) [facility] Glucose, POC >600(C) 70 - 199 mg/dL Comment:Glu2: RN/MD Notified Glucose comment 1 Glu2: RN/MD Notified [facility] Blood 11/03/2024 2:03 AM CDT 11/03/2024 2:03 AM CDT Dutch Blake MD LAB POCT ORDERABLES - DEVICE Final Result Performing Organization Address City/[facility]/ZIP Co de Phone Number [facility] [place] [employer] [place] [place] [address] * (ABNORMAL) POCT glucose (11/02/2024 8:42 PM CDT) Glucose, POC 204(H) 70 - 199 mg/dL Comment:Glu2: RN/MD Notified Glucose comment 1 Glu2: RN/MD Notified [facility] Blood 11/02/2024 8:42 PM CDT 11/02/2024 8:42 PM CDT us Dutch Blake MD LAB POCT ORDERABLES - DEVICE Final Result Performing Organization Address City/[facility]/ZIP Co de Phone Number [facility] [place] [address] * (ABNORMAL) POCT glucose (11/02/2024 6:19 PM CDT) Glucose, POC 236(H) 70 - 199 mg/dL Blood 11/02/2024 6:19 PM CDT 11/02/2024 6:19 PM CDT Dutch Blake MD LAB POCT ORDERABLES - DEVICE Final Result Performing Organization Address City/[facility] Co de Phone Number [facility] [place] [address] * (ABNORMAL) POCT glucose (11/02/2024 12:54 PM CDT) Glucose, POC 281(H) 70 - 199 mg/dL Blood 11/02/2024 12:5 4 PM CDT 11/02/2024 12:54 PM CDT Dutch Blake MD LAB POCT ORDERABLES - DEVICE Final Result Performing Organization Address City/[facility]/ZIP Co de Phone Number [facility] [place] [address] * Post Dialysis BUN (11/02/2024 11:27 AM CDT) BUN Post 9 6 - 25 mg/dL Blood 11/02/2024 11:2 7 AM CDT 11/02/2024 12:06 PM CDT [facility] LAB BLOOD ORDERABLES Marli l Result Performing Organization Address City/[facility] Co de Phone Number [facility] [place] [employer] [place] [place] [address] * (ABNORMAL) Pre Dialysis BUN (11/02/2024 8:37 AM CDT) BUN Pre 37(H) 6 - 25 mg/dL Blood 11/02/2024 8:37 AM CDT 11/02/2024 8:49 AM CDT [facility] LAB BLOOD ORDERABLES Marli l Result Performing Organization Address [facility] Co de Phone Number [facility] [place] [address] * POCT glucose (11/02/2024 7:39 AM CDT) Glucose, POC 198 70 - 199 mg/dL Blood 11/02/2024 7:39 AM CDT 11/02/2024 7:39 AM CDT Dutch Blake MD LAB POCT ORDERABLES - DEVICE Final Result Performing Organization Address City/[facility] [place] [address] * (ABNORMAL) POCT glucose (11/02/2024 3:12 AM CDT) Glucose, POC 268(H) 70 - 199 mg/dL Blood 11/02/2024 3:12 AM CDT 11/02/2024 3:12 AM CDT Dutch Blake MD LAB POCT ORDERABLES - DEVICE Final Result Performing Organization Address [facility] Co de Phone Number [facility] [place] [address] * (ABNORMAL) eGFR (11/01/2024 9:45 PM CDT) Pathologist [facility] eGFR 9(L) >=60 mL/min/1. 73 m2 Comment: [...] BLOOD ORDERABLES Final Result Performing Organization Address City/[facility]/ZIP Co de Phone Number [facility] [place] [address] * Differential, auto (11/01/2024 9:45 PM CDT) [facility] Neutrophil abs 2.74 1.50 - 6.50 K/cumm Imm gran abs 0.01 0.00 - 0.10 K/cumm [facility] Lymphocyte abs 1.86 0.80 - 3.30 K/cumm [facility] Monocyte abs 0.71 0.20 - 0.80 K/cumm [facility] Eosinophil abs 0.17 0.00 - 0.50 K/cumm [facility] Basophil abs 0.02 0.00 - 0.10 K/cumm [facility] Neutrophil pct 49.6 % [facility] Comment: Interpretive Data Percent cell count reference ranges are not reported, since discordance with absolute values may lead to misinterpretation of CBC data. Current Interpretive Data was last revised on 2017. Imm gran pct 0.2 % [facility] Comment: Interpretive Data Percent cell count reference ranges are not reported, since discordance with absolute values may lead to misinterpretation of CBC data. Current Interpretive Data was last revised on 2017. Lymphocyte pct 33.8 % [facility] Comment: Interpretive Data Percent cell count reference ranges are not reported, since discordance with absolute values may lead to misinterpretation of CBC data. Current Interpretive Data was last revised on 2017. Monocyte pct 12.9 % [facility] Comment: Interpretive Data Percent cell count reference ranges are not reported, since discordance with absolute values may lead to misinterpretation of CBC data. Current Interpretive Data was last revised on 2017. Eosinophil pct 3.1 % [facility] Comment: Interpretive Data Percent cell count reference ranges are not reported, since discordance with absolute values may lead to misinterpretation of CBC data. Current Interpretive Data was last revised on 2017. Basophil pct 0.4 % [facility] Comment: Interpretive Data Percent cell count reference ranges are not reported, since discordance with absolute values may lead to misinterpretation of CBC data. Current Interpretive Data was last revised on 2017. Blood 11/01/2024 9:45 PM CDT 11/01/2024 10:31 PM CDT us Luciano Hayes MD PhD LAB BLOOD ORDERABLES Final Result [facility] [place] [address] * (ABNORMAL) CBC with auto differential (11/01/2024 9:45 PM CDT) [facility] WBC 5.51 3.80 - 9.90 K/cumm Hgb 9.0(L) 11.9 - 15.5 g/dL [facility] Hct 28.1(L) 35.6 - 45.5 % [facility] Plt 286 150 - 400 K/cumm [facility] MPV 11.0 9.1 - 12.3 fL [facility] RBC 3.28(L) 3.90 - 5.20 M/cumm [facility] MCV 85.7 81.3 - 96.4 fL [facility] MCH 27.4 27.1 - 33.3 pg [facility] MCHC 32.0(L) 32.3 - 35.7 g/dL [facility] RDW CV 16.4(H) 11.1 - 14.9 % [facility] RDW SD 50.9(H) 35.7 - 48.1 fL [facility] NRBC abs 0.00 0.00 - 0.01 K/cumm [facility] Blood 11/01/2024 9:45 PM CDT 11/01/2024 10:31 PM CDT Luciano Hayes MD PhD LAB BLOOD ORDERABLES Final Result [facility] [place] [address] * (ABNORMAL) Basic metabolic panel (11/01/2024 9:45 PM CDT) [facility] Sodium 142 135 - 145 mmol/L Potassium, pl 3.9 3.3 - 4.9 mmol/L [facility] Chloride 102 97 - 110 mmol/L [facility] CO2 27 22 - 32 mmol/L [facility] Anion gap 13 2 - 15 mmol/L [facility] BUN 36(H) 6 - 25 mg/dL [facility] Creatinine 6.00(H) 0.60 - 1.10 mg/dL [facility] Glucose 197 70 - 199 mg/dL [facility] Comment: Interpretive Data Fasting glucose >/= 126 [...] 2022. Calcium 6.9(L) 8.5 - 10.3 mg/dL [facility] Blood 11/01/2024 9:45 PM CDT 11/01/2024 10:31 PM CDT us Luciano Hayes MD PhD LAB BLOOD ORDERABLES Final Result Performing Organization Address [facility]/ZIP Co de Phone Number [facility] Department [place] [place] [address] * POCT glucose (11/01/2024 9:30 PM CDT) Glucose, POC 184 70 - 199 mg/dL Blood 11/01/2024 9:30 PM CDT 11/01/2024 9:30 PM CDT Dutch Blake MD LAB POCT ORDERABLES - DEVICE Final Result Performing Organization Address City/[facility]/ZIP Co de Phone Number [facility] Department [place] [place] [address] * POCT glucose (11/01/2024 4:50 PM CDT) Glucose, POC 130 70 - 199 mg/dL Comment:Glu2: RN/MD Notified Glucose comment 1 Glu2: RN/MD Notified [facility] Blood 11/01/2024 4:50 PM CDT 11/01/2024 4:50 PM CDT Dutch Blake MD LAB POCT ORDERABLES - DEVICE Final Result Performing Organization Address [facility] Co de Phone Number [facility] [place] [address] * (ABNORMAL) POCT glucose (11/01/2024 11:49 AM CDT) Glucose, POC 201(H) 70 - 199 mg/dL Comment:Glu2: RN/ Notified Glucose comment 1 Glu2: RN/ Notified [facility] Blood 11/01/2024 11:4 9 AM CDT 11/01/2024 11:49 AM CDT Dutch Blake MD LAB POCT ORDERABLES - DEVICE Final Result Performing Organization Address [facility] de Phone Number [facility] [place] [address] * (ABNORMAL) POCT glucose (11/01/2024 8:12 AM CDT) Glucose, POC 338(H) 70 - 199 mg/dL Comment:Glu2: RN/ Notified Glucose comment 1 Glu2: RN/ Notified [facility] Blood 11/01/2024 8:12 AM CDT 11/01/2024 8:12 AM CDT Dutch Blake MD LAB POCT ORDERABLES - DEVICE Final Result Performing Organization Address [facility] Co de Phone Number [facility] [place] [address] * (ABNORMAL) POCT glucose (11/01/2024 1:38 AM CDT) Glucose, POC 232(H) 70 - 199 mg/dL Comment:Glu2: KADY/ Notified Glucose comment 1 Glu2: RN/ Notified [facility] Blood 11/01/2024 1:38 AM CDT 11/01/2024 1:38 AM CDT Dutch Blake MD LAB POCT ORDERABLES - DEVICE Final Result Performing Organization Address [facility] Co de Phone Number [facility] [place] [address] * (ABNORMAL) eGFR (10/31/2024 11:30 PM CDT) [...] BLOOD ORDERABLES Final Result Performing Organization Address City/[facility]/ZIP Co de Phone Number [facility] [place] [address] * (ABNORMAL) Differential, auto (10/31/2024 11:30 PM CDT) Neutrophil abs 7.04(H) 1.50 - 6.50 K/cumm Imm gran abs 0.03 0.00 - 0.10 K/cumm [facility] Lymphocyte abs 0.83 0.80 - 3.30 K/cumm [facility] Monocyte abs 0.28 0.20 - 0.80 K/cumm [facility] Eosinophil abs 0.09 0.00 - 0.50 K/cumm [facility] Basophil abs 0.02 0.00 - 0.10 K/cumm [facility] Neutrophil pct 84.9 % [facility] Comment: Interpretive Data Percent cell count reference ranges are not reported, since discordance with absolute values may lead to misinterpretation of CBC data. Current Interpretive Data was last revised on 2017. Imm gran pct 0.4 % [facility] Comment: Interpretive Data Percent cell count reference ranges are not reported, since discordance with absolute values may lead to misinterpretation of CBC data. Current Interpretive Data was last revised on 2017. Lymphocyte pct 10.0 % [facility] Comment: Interpretive Data Percent cell count reference ranges are not reported, since discordance with absolute values may lead to misinterpretation of CBC data. Current Interpretive Data was last revised on 2017. Monocyte pct 3.4 % [facility] Comment: Interpretive Data Percent cell count reference ranges are not reported, since discordance with absolute values may lead to misinterpretation of CBC data. Current Interpretive Data was last revised on 2017. Eosinophil pct 1.1 % [facility] Comment: Interpretive Data Percent cell count reference ranges are not reported, since discordance with absolute values may lead to misinterpretation of CBC data. Current Interpretive Data was last revised on 2017. Basophil pct 0.2 % [facility] Comment: Interpretive Data Percent cell count reference ranges are not reported, since discordance with absolute values may lead to misinterpretation of CBC data. Current Interpretive Data was last revised on 2017. Blood 10/31/2024 11:3 0 PM CDT 10/31/2024 11:57 PM CDT Luciano Hayes MD PhD LAB BLOOD ORDERABLES Final Result [facility] Department [place] [address] * (ABNORMAL) CBC with auto differential (10/31/2024 11:30 PM CDT) [facility] WBC 8.29 3.80 - 9.90 K/cumm Hgb 10.4(L) 11.9 - 15.5 g/dL [facility] Hct 31.4(L) 35.6 - 45.5 % [facility] Plt 304 150 - 400 K/cumm [facility] MPV 11.2 9.1 - 12.3 fL [facility] RBC 3.72(L) 3.90 - 5.20 M/cumm [facility] MCV 84.4 81.3 - 96.4 fL [facility] MCH 28.0 27.1 - 33.3 pg [facility] MCHC 33.1 32.3 - 35.7 g/dL [facility] RDW CV 16.2(H) 11.1 - 14.9 % [facility] RDW SD 50.7(H) 35.7 - 48.1 fL [facility] NRBC abs 0.00 0.00 - 0.01 K/cumm [facility] Blood 10/31/2024 11:3 0 PM CDT 10/31/2024 11:57 PM CDT Luciano Hayes MD PhD LAB BLOOD ORDERABLES Final Result [facility] [place] [address] * (ABNORMAL) Basic metabolic panel (10/31/2024 11:30 PM CDT) [facility] Sodium 137 135 - 145 mmol/L Potassium, pl 3.8 3.3 - 4.9 mmol/L [facility] Chloride 97 97 - 110 mmol/L [facility] CO2 25 22 - 32 mmol/L [facility] Anion gap 15 2 - 15 mmol/L [facility] BUN 20 6 - 25 mg/dL [facility] Creatinine 4.28(H) 0.60 - 1.10 mg/dL [facility] Glucose 230(H) 70 - 199 mg/dL [facility] Comment: Interpretive Data Fasting glucose >/= 126 [...] 2022. Calcium 7.8(L) 8.5 - 10.3 mg/dL [facility] Blood 10/31/2024 11:3 0 PM CDT 10/31/2024 11:56 PM CDT us Luciano Hayes MD PhD LAB BLOOD ORDERABLES Final Result [facility] [place] [address] * POCT glucose (10/31/2024 8:07 PM CDT) Glucose, POC 191 70 - 199 mg/dL Blood 10/31/2024 8:07 PM CDT 10/31/2024 8:07 PM CDT us Dutch Blake MD LAB POCT ORDERABLES - DEVICE Final Result [facility] [place] [address] * POCT glucose (10/31/2024 5:26 PM CDT) Glucose, POC 108 70 - 199 mg/dL Blood 10/31/2024 5:26 PM CDT 10/31/2024 5:26 PM CDT us Dutch Blake MD LAB POCT ORDERABLES - DEVICE Final Result Performing Organization Address [facility] Co de Phone Number [facility] [place] [address] * POCT glucose (10/31/2024 1:18 PM CDT) Glucose, POC 96 70 - 199 mg/dL Blood 10/31/2024 1:18 PM CDT 10/31/2024 1:18 PM CDT us Dutch Blake MD LAB POCT ORDERABLES - DEVICE Final Result Performing Organization Address [facility] de Phone Number [facility] [place] [address] * Hepatitis B Surface Antigen Blood (10/31/2024 9:31 AM CDT) HepBsAg Nonreactive Nonreactive Blood 10/31/2024 9:31 AM CDT 10/31/2024 9:57 AM CDT us Francisco Middleton DO LAB MICROBIOLOGY - GENERA L ORDERABLES Final Result Performing Organization Address [facility] [place] [address] * POCT glucose (10/31/2024 7:50 AM CDT) Glucose, POC 79 70 - 199 mg/dL Comment:Glu2: RN/MD Notified Glucose comment 1 Glu2: RN/MD Notified [facility] Blood 10/31/2024 7:50 AM CDT 10/31/2024 7:50 AM CDT us Dutch Blake MD LAB POCT ORDERABLES - DEVICE Final Result [facility] [place] [employer] [place] [address] * POCT glucose (10/31/2024 1:56 AM CDT) Glucose, POC 87 70 - 199 mg/dL Blood 10/31/2024 1:56 AM CDT 10/31/2024 1:56 AM CDT us Dutch Blake MD LAB POCT ORDERABLES - DEVICE Final Result Performing Organization Address [facility] de Phone Number HERBER [facility] [place] [employer] [place] [address] * (ABNORMAL) eGFR (10/30/2024 9:57 PM CDT) eGFR 8(L) >=60 mL/min/1. 73 m2 [...] PhD LAB BLOOD ORDERABLES Final Result [facility] [place] [address] * Differential, auto (10/30/2024 9:57 PM CDT) Neutrophil abs 2.96 1.50 - 6.50 K/cumm Imm gran abs 0.02 0.00 - 0.10 K/cumm [facility] Lymphocyte abs 2.18 0.80 - 3.30 K/cumm [facility] Monocyte abs 0.55 0.20 - 0.80 K/cumm [facility] Eosinophil abs 0.29 0.00 - 0.50 K/cumm [facility] Basophil abs 0.03 0.00 - 0.10 K/cumm [facility] Neutrophil pct 49.1 % [facility] Comment: Interpretive Data Percent cell count reference ranges are not reported, since discordance with absolute values may lead to misinterpretation of CBC data. Current Interpretive Data was last revised on 2017. Imm gran pct 0.3 % [facility] Comment: Interpretive Data Percent cell count reference ranges are not reported, since discordance with absolute values may lead to misinterpretation of CBC data. Current Interpretive Data was last revised on 2017. Lymphocyte pct 36.2 % [facility] Comment: Interpretive Data Percent cell count reference ranges are not reported, since discordance with absolute values may lead to misinterpretation of CBC data. Current Interpretive Data was last revised on 2017. Monocyte pct 9.1 % [facility] Comment: Interpretive Data Percent cell count reference ranges are not reported, since discordance with absolute values may lead to misinterpretation of CBC data. Current Interpretive Data was last revised on 2017. Eosinophil pct 4.8 % [facility] Comment: Interpretive Data Percent cell count reference ranges are not reported, since discordance with absolute values may lead to misinterpretation of CBC data. Current Interpretive Data was last revised on 2017. Basophil pct 0.5 % [facility] Comment: Interpretive Data Percent cell count reference ranges are not reported, since discordance with absolute values may lead to misinterpretation of CBC data. Current Interpretive Data was last revised on 2017. Blood 10/30/2024 9:57 PM CDT 10/30/2024 10:39 PM CDT Luciano Hayes MD PhD LAB BLOOD ORDERABLES Final Result Performing Organization Address City/[facility]/ZIP Co de Phone Number [facility] [place] [address] * Beta-hydroxybutyrate (10/30/2024 9:57 PM CDT) [facility] Beta-Hydroxybut yrate 0.1 0.0 - 0.5 mmol/L Blood 10/30/2024 9:57 PM CDT 10/30/2024 10:28 PM CDT Luciano Hayes MD PhD LAB BLOOD ORDERABLES Edited Result - Final Performing Organization Address City/[facility] Co de Phone Number [facility] [place] [address] * (ABNORMAL) CBC with auto differential (10/30/2024 9:57 PM CDT) [facility] WBC 6.03 3.80 - 9.90 K/cumm Hgb 8.9(L) 11.9 - 15.5 g/dL [facility] Hct 27.6(L) 35.6 - 45.5 % [facility] Plt 277 150 - 400 K/cumm [facility] MPV 11.0 9.1 - 12.3 fL [facility] RBC 3.17(L) 3.90 - 5.20 M/cumm [facility] MCV 87.1 81.3 - 96.4 fL [facility] MCH 28.1 27.1 - 33.3 pg [facility] MCHC 32.2(L) 32.3 - 35.7 g/dL [facility] RDW CV 16.4(H) 11.1 - 14.9 % [facility] RDW SD 52.3(H) 35.7 - 48.1 fL [facility] NRBC abs 0.00 0.00 - 0.01 K/cumm [facility] Blood 10/30/2024 9:57 PM CDT 10/30/2024 10:39 PM CDT us Luciano Hayes MD PhD LAB BLOOD ORDERABLES Final Result [facility] [place] [address] * (ABNORMAL) Basic metabolic panel (10/30/2024 9:57 PM CDT) Pathologist [facility] Sodium 138 135 - 145 mmol/L Potassium, pl 4.2 3.3 - 4.9 mmol/L [facility] Chloride 100 97 - 110 mmol/L [facility] CO2 26 22 - 32 mmol/L [facility] Anion gap 12 2 - 15 mmol/L [facility] BUN 45(H) 6 - 25 mg/dL [facility] Creatinine 6.91(H) 0.60 - 1.10 mg/dL [facility] Glucose 252(H) 70 - 199 mg/dL [facility] Comment: Interpretive Data Fasting glucose >/= 126 [...] 2022. Calcium 8.1(L) 8.5 - 10.3 mg/dL [facility] Blood 10/30/2024 9:57 PM CDT 10/30/2024 10:39 PM CDT us Luciano Hayes MD PhD LAB BLOOD ORDERABLES Final Result [facility] [place] [address] * (ABNORMAL) POCT glucose (10/30/2024 8:29 PM CDT) Glucose, POC 361(H) 70 - 199 mg/dL Comment:Glu2: RN/MD Notified Glucose comment 1 Glu2: RN/MD Notified [facility] Blood 10/30/2024 8:29 PM CDT 10/30/2024 8:29 PM CDT us Dennis Cadet MD LAB POCT ORDERABLES - DEV ICE Final Result Performing Organization Address [facility] [place] [address] * (ABNORMAL) POCT glucose (10/30/2024 5:10 PM CDT) Glucose, POC 292(H) 70 - 199 mg/dL Blood 10/30/2024 5:10 PM CDT 10/30/2024 5:10 PM CDT us Dennis Cadet MD LAB POCT ORDERABLES - DEV ICE Final Result Performing Organization Address [facility] Co de Phone Number [facility] [place] [address] * (ABNORMAL) POCT glucose (10/30/2024 1:08 PM CDT) Glucose, POC 251(H) 70 - 199 mg/dL Blood 10/30/2024 1:08 PM CDT 10/30/2024 1:08 PM CDT us Luciano Hayes MD PhD LAB POCT ORDERABLES - DEVIC E Final Result Performing Organization Address City/[facility]/ZIP Co de Phone Number [facility] [place] [address] * (ABNORMAL) POCT glucose (10/30/2024 11:19 AM CDT) Glucose, POC 270(H) 70 - 199 mg/dL Blood 10/30/2024 11:1 9 AM CDT 10/30/2024 11:19 AM CDT Luciano Hayes MD PhD LAB POCT ORDERABLES - DEVIC E Final Result Performing Organization Address City/[facility]/ZIP Co de Phone Number HERBER [facility] [place] [address] * (ABNORMAL) eGFR (10/30/2024 9:10 AM CDT) eGFR 10(L) >=60 mL/min/1. 73 [...] MD LAB BLOOD ORDERABLES Fi nal Result HERBER [facility] [place] [address] * (ABNORMAL) Beta-hydroxybutyrate (10/30/2024 9:10 AM CDT) [facility] Beta-Hydroxybut yrate 0.6(H) 0.0 - 0.5 mmol/L Blood 10/30/2024 9:10 AM CDT 10/30/2024 9:23 AM CDT us Dennis Cadet MD LAB BLOOD ORDERABLES Marli l Result [facility] [place] [address] * (ABNORMAL) Basic metabolic panel (10/30/2024 9:10 AM CDT) [facility] Sodium 139 135 - 145 mmol/L Potassium, pl 4.7 3.3 - 4.9 mmol/L [facility] Comment:Hemolyzed; Potassium value may be falsely elevated by as much as 0.6-1.0 mmol/L. Suggest redraw and reanalysis. Chloride 102 97 - 110 mmol/L [facility] CO2 24 22 - 32 mmol/L [facility] Anion gap 13 2 - 15 mmol/L [facility] BUN 37(H) 6 - 25 mg/dL [facility] Creatinine 5.68(H) 0.60 - 1.10 mg/dL [facility] Glucose 214(H) 70 - 199 mg/dL [facility] Comment: Interpretive Data Fasting glucose >/= 126 [...] 2022. Calcium 7.9(L) 8.5 - 10.3 mg/dL [facility] Blood 10/30/2024 9:10 AM CDT 10/30/2024 9:27 AM CDT Crystal Schuster MD LAB BLOOD ORDERABLES Fi nal Result Performing Organization Address City/[facility] Co de Phone Number [facility] [place] [address] * POCT glucose (10/30/2024 8:07 AM CDT) Glucose, POC 172 70 - 199 mg/dL Blood 10/30/2024 8:07 AM CDT 10/30/2024 8:07 AM CDT Luciano Hayes MD PhD LAB POCT ORDERABLES - DEVIC E Final Result Performing Organization Address City/[facility] Co de Phone Number [facility] [place] [place] [address] * POCT glucose (10/30/2024 6:31 AM CDT) Glucose, POC 173 70 - 199 mg/dL Blood 10/30/2024 6:31 AM CDT 10/30/2024 6:31 AM CDT Dennis Cadet MD LAB POCT ORDERABLES - DEV ICE Final Result [facility] [place] [address] * POCT glucose (10/30/2024 4:02 AM CDT) Glucose, POC 88 70 - 199 mg/dL Blood 10/30/2024 4:02 AM CDT 10/30/2024 4:02 AM CDT us Dennis Cadet MD LAB POCT ORDERABLES - DEV ICE Final Result HERBER JIMENE[facility] [place] [address] * POCT glucose (10/30/2024 2:30 AM CDT) Glucose, POC 95 70 - 199 mg/dL Blood 10/30/2024 2:30 AM CDT 10/30/2024 2:30 AM CDT Dennis Cadet MD LAB POCT ORDERABLES - DEV ICE Final Result Performing Organization Address [facility] Co de Phone Number [facility] [place] [address] * (ABNORMAL) eGFR (10/30/2024 2:24 AM CDT) [...] of Race in Diagnosing Kidney Disease, JASN 202). The CKD-EPI equation should not be used for patients with unstable renal function and has not been validated in children and those over 70. Current interpretive data was last reviewed 2021. Blood 10/30/2024 2:24 AM CDT 10/30/2024 2:43 AM CDT Crystal Schuster MD LAB BLOOD ORDERABLES Fi nal Result [facility] [place] [address] * (ABNORMAL) Differential, auto (10/30/2024 2:24 AM CDT) Neutrophil abs 7.45(H) 1.50 - 6.50 K/cumm Imm gran abs 0.03 0.00 - 0.10 K/cumm [facility] Lymphocyte abs 2.30 0.80 - 3.30 K/cumm [facility] Monocyte abs 0.93(H) 0.20 - 0.80 K/cumm [facility] Eosinophil abs 0.09 0.00 - 0.50 K[facility]umm [facility] Basophil abs 0.03 0.00 - 0.10 K/cumm [facility] Neutrophil pct 68.8 % [facility] Comment: Interpretive Data Percent cell count reference ranges are not reported, since discordance with absolute values may lead to misinterpretation of CBC data. Current Interpretive Data was last revised on 2017. Imm gran pct 0.3 % [facility] Comment: Interpretive Data Percent cell count reference ranges are not reported, since discordance with absolute values may lead to misinterpretation of CBC data. Current Interpretive Data was last revised on 2017. Lymphocyte pct 21.2 % [facility] Comment: Interpretive Data Percent cell count reference ranges are not reported, since discordance with absolute values may lead to misinterpretation of CBC data. Current Interpretive Data was last revised on 2017. Monocyte pct 8.6 % [facility] Comment: Interpretive Data Percent cell count reference ranges are not reported, since discordance with absolute values may lead to misinterpretation of CBC data. Current Interpretive Data was last revised on 2017. Eosinophil pct 0.8 % [facility] Comment: Interpretive Data Percent cell count reference ranges are not reported, since discordance with absolute values may lead to misinterpretation of CBC data. Current Interpretive Data was last revised on 2017. Basophil pct 0.3 % [facility] Comment: Interpretive Data Percent cell count reference ranges are not reported, since discordance with absolute values may lead to misinterpretation of CBC data. Current Interpretive Data was last revised on 2017. Blood 10/30/2024 2:24 AM CDT 10/30/2024 2:44 AM CDT Sandra Eddy MD LAB BLOOD ORDERABLES Final Resul t Performing Organization Address [facility] Co de Phone Number [facility] Department [place] [address] * (ABNORMAL) CBC with auto differential (10/30/2024 2:24 AM CDT) WBC 10.83(H) 3.80 - 9.90 K/cumm Hgb 9.3(L) 11.9 - 15.5 g/dL [facility] Hct 28.7(L) 35.6 - 45.5 % [facility] Plt 292 150 - 400 K/cumm [facility] MPV 11.0 9.1 - 12.3 fL [facility] RBC 3.34(L) 3.90 - 5.20 M/cumm [facility] MCV 85.9 81.3 - 96.4 fL [facility] MCH 27.8 27.1 - 33.3 pg [facility] MCHC 32.4 32.3 - 35.7 g/dL [facility] RDW CV 16.9(H) 11.1 - 14.9 % [facility] RDW SD 52.8(H) 35.7 - 48.1 fL [facility] NRBC abs 0.00 0.00 - 0.01 K/cumm [facility] Blood 10/30/2024 2:24 AM CDT 10/30/2024 2:44 AM CDT Sandra Eddy MD LAB BLOOD ORDERABLES Final Resul t Performing Organization Address [facility] Co de Phone Number [facility] [place] [address] * (ABNORMAL) Hemoglobin A1c (10/30/2024 2:24 AM CDT) Hgb A1C 8.8(H) 4.0 - 5.6 % Estimated Average Glucose 206 mg/dL [facility] Comment: The ADA recommends reporting an estimated [...] ORDERABLES Marli l Result Performing Organization Address [facility] de Phone Number [facility] [place] [address] * Blood gas, venous (10/30/2024 2:24 AM CDT) pH, Venous 7.34 7.32 - 7.43 PCO2, Venous 50 40 - 50 mmHg [facility] PO2, Venous 41 mmHg [facility] Comment: Interpretive Data No Reference Range Established Current Interpretive Data was last revised on 2017. HCO3 Venous, Calculated 28 20 - 30 mmol/L [facility] BE, venous 1 mmol/L [facility] Comment: Interpretive Data No Reference Range Established Current Interpretive Data was last revised on 2017. Blood 10/30/2024 2:24 AM CDT 10/30/2024 2:31 AM CDT Crystal Schuster MD LAB BLOOD ORDERABLES Fi nal Result Performing Organization Address [facility] Co de Phone Number [facility] [place] [address] * (ABNORMAL) Basic metabolic panel (10/30/2024 2:24 AM CDT) Sodium 143 135 - 145 mmol/L Potassium, pl 3.6 3.3 - 4.9 mmol/L [facility] Chloride 106 97 - 110 mmol/L [facility] CO2 28 22 - 32 mmol/L [facility] Anion gap 9 2 - 15 mmol/L [facility] BUN 35(H) 6 - 25 mg/dL [facility] Creatinine 5.56(H) 0.60 - 1.10 mg/dL [facility] Glucose 112 70 - 199 mg/dL [facility] Comment: Interpretive Data Fasting glucose >/= 126 [...] 2022. Calcium 7.8(L) 8.5 - 10.3 mg/dL [facility] Blood 10/30/2024 2:24 AM CDT 10/30/2024 2:43 AM CDT us Crystal Schuster MD LAB BLOOD ORDERABLES Fi nal Result Performing Organization Address City/[facility]/ZIP Co de Phone Number [facility] [place] [address] * POCT glucose (10/30/2024 12:01 AM CDT) Glucose, POC 181 70 - 199 mg/dL Blood 10/30/2024 12:0 1 AM CDT 10/30/2024 12:01 AM CDT us Dennis Cadet MD LAB POCT ORDERABLES - DEV ICE Final Result Performing Organization Address [facility]/ZIP Co de Phone Number [facility] [place] [address] * (ABNORMAL) POCT glucose (10/29/2024 10:01 PM CDT) Glucose, POC 297(H) 70 - 199 mg/dL Blood 10/29/2024 10:0 1 PM CDT 10/29/2024 10:01 PM CDT Dennis Cadet MD LAB POCT ORDERABLES - DEV ICE Final Result [facility] [place] [address] * (ABNORMAL) POCT glucose (10/29/2024 8:26 PM CDT) [facility] Glucose, POC 290(H) 70 - 199 mg/dL Blood 10/29/2024 8:26 PM CDT 10/29/2024 8:26 PM CDT Dennis Cadet MD LAB POCT ORDERABLES - DEV ICE Final Result [facility] [place] [address] * (ABNORMAL) eGFR (10/29/2024 8:13 PM CDT) [facility] eGFR 11(L) >=60 mL/min/1. 73 m2 Comment: [...] of Race in Diagnosing Kidney Disease, JASN 202). The CKD-EPI equation should not be used for patients with unstable renal function and has not been validated in children and those over 70. Current interpretive data was last reviewed 2021. Blood 10/29/2024 8:13 PM CDT 10/29/2024 8:27 PM CDT us Ari Us MD LAB BLOOD ORDERABLES Final R esult [facility] [place] [address] * Lipid panel (10/29/2024 8:13 PM CDT) [...] on 2017. Triglycerides 92 <=149 mg/dL [facility] Comment: Interpretive Data Ages < or = [...] revised on 2017. HDL 49 >=40 mg/dL [facility] Comment: Interpretive Data Ages < or = [...] on 2017. LDL, calculated 58 <=129 mg/dL [facility] Comment: Interpretive Data Ages < or = [...] revised on 2023. Non-HDL Cholesterol 75 mg/dL [facility] Comment: Interpretive Data Ages < or = [...] last revised on 2017. Chol/HDL ratio 3 [facility] Blood 10/29/2024 8:13 PM CDT 10/29/2024 8:27 PM CDT us Dennis Cadet MD LAB BLOOD ORDERABLES Marli l Result Performing Organization Address City/[facility]/ZIP Co de Phone Number [facility] Department [place] [address] * (ABNORMAL) Basic metabolic panel (10/29/2024 8:13 PM CDT) Pathologist [facility] Sodium 143 135 - 145 mmol/L Potassium, pl 4.1 3.3 - 4.9 mmol/L [facility] Chloride 102 97 - 110 mmol/L [facility] CO2 23 22 - 32 mmol/L [facility] Anion gap 18(H) 2 - 15 mmol/L [facility] BUN 31(H) 6 - 25 mg/dL [facility] Creatinine 5.00(H) 0.60 - 1.10 mg/dL [facility] Glucose 266(H) 70 - 199 mg/dL [facility] Comment: Interpretive Data Fasting glucose >/= 126 [...] 2022. Calcium 7.7(L) 8.5 - 10.3 mg/dL [facility] Blood 10/29/2024 8:13 PM CDT 10/29/2024 8:27 PM CDT us Ari Us MD LAB BLOOD ORDERABLES Final R esult Performing Organization Address [facility]/ZIP Co de Phone Number [facility] [place] [address] * (ABNORMAL) POCT glucose (10/29/2024 4:00 PM CDT) Glucose, POC 290(H) 70 - 199 mg/dL Comment:Glu2: RN/ Notified Glucose comment 1 Glu2: RN/MD Notified [facility] Blood 10/29/2024 4:00 PM CDT 10/29/2024 4:00 PM CDT us Ciaran Medina MD LAB POCT ORDERABLES - DEVICE Final Result Performing Organization Address [facility] Co de Phone Number [facility] [place] [address] * (ABNORMAL) POCT glucose (10/29/2024 12:58 PM CDT) Glucose, POC 299(H) 70 - 199 mg/dL Blood 10/29/2024 12:5 8 PM CDT 10/29/2024 12:58 PM CDT us Nathan Moore MD LAB POCT ORDERABLES - DE VICE Final Result Performing Organization Address [facility] Co de Phone Number [facility] [place] [address] * (ABNORMAL) POCT glucose (10/29/2024 11:55 AM CDT) Glucose, POC 309(H) 70 - 199 mg/dL Comment:Glu2: RN/ Notified Glucose comment 1 Glu2: RN/ Notified [facility] Blood 10/29/2024 11:5 5 AM CDT 10/29/2024 11:55 AM CDT us Nathan Moore MD LAB POCT ORDERABLES - DE VICE Final Result [facility] [place] [address] * XR Chest PA Lateral 2 Views [...] silhouette is within normal limits. Dictated by: Kvein Richardson M.D. The radiology attending physician has personally reviewed this study, and had reviewed and/or edited this written report and agrees with it. Electronically signed by: Damon Crook M.D. us Nathan Moore MD IMG XR PROCEDURES Final Result * POCT lactate (10/29/2024 11:14 AM CDT) [facility] Lactate POC i-STAT 1.6 0.7 - 2.0 mmol/L Blood 10/29/2024 11:1 4 AM CDT 10/29/2024 11:14 AM CDT us Nathan Moore MD LAB POCT ORDERABLES - DE VICE Final Result Performing Organization Address City/[facility]/ZIP Co de Phone Number [facility] [place] [address] * Potassium, whole blood (10/29/2024 11:03 AM CDT) [facility] Potassium, bld 4.2 3.3 - 4.9 mmol/L Blood 10/29/2024 11:0 3 AM CDT 10/29/2024 11:15 AM CDT us Ari Us MD LAB BLOOD ORDERABLES Final R esult Performing Organization Address City/[facility]/ZIP Co de Phone Number [facility] [place] [address] * (ABNORMAL) eGFR (10/29/2024 11:03 AM CDT) [facility] eGFR 12(L) >=60 mL/min/1. 73 m2 Comment: [...] MD LAB BLOOD ORDERABLES Final R esult [facility] [place] [address] * (ABNORMAL) Differential, auto (10/29/2024 11:03 AM CDT) Neutrophil abs 8.42(H) 1.50 - 6.50 K/cumm Imm gran abs 0.04 0.00 - 0.10 K/cumm [facility] Lymphocyte abs 1.17 0.80 - 3.30 K/cumm [facility] Monocyte abs 0.52 0.20 - 0.80 K/cumm [facility] Eosinophil abs 0.17 0.00 - 0.50 K/cumm [facility] Basophil abs 0.04 0.00 - 0.10 K/cumm [facility] Neutrophil pct 81.3 % [facility] Comment: Interpretive Data Percent cell count reference ranges are not reported, since discordance with absolute values may lead to misinterpretation of CBC data. Current Interpretive Data was last revised on 2017. Imm gran pct 0.4 % [facility] Comment: Interpretive Data Percent cell count reference ranges are not reported, since discordance with absolute values may lead to misinterpretation of CBC data. Current Interpretive Data was last revised on 2017. Lymphocyte pct 11.3 % [facility] Comment: Interpretive Data Percent cell count reference ranges are not reported, since discordance with absolute values may lead to misinterpretation of CBC data. Current Interpretive Data was last revised on 2017. Monocyte pct 5.0 % [facility] Comment: Interpretive Data Percent cell count reference ranges are not reported, since discordance with absolute values may lead to misinterpretation of CBC data. Current Interpretive Data was last revised on 2017. Eosinophil pct 1.6 % [facility] Comment: Interpretive Data Percent cell count reference ranges are not reported, since discordance with absolute values may lead to misinterpretation of CBC data. Current Interpretive Data was last revised on 2017. Basophil pct 0.4 % [facility] Comment: Interpretive Data Percent cell count reference ranges are not reported, since discordance with absolute values may lead to misinterpretation of CBC data. Current Interpretive Data was last revised on 2017. Blood 10/29/2024 11:0 3 AM CDT 10/29/2024 11:21 AM CDT us Nathan Moore MD LAB BLOOD ORDERABLES Fin al Result [facility] [place] [address] * (ABNORMAL) CBC with auto differential (10/29/2024 11:03 AM CDT) WBC 10.36(H) 3.80 - 9.90 K/cumm Hgb 11.5(L) 11.9 - 15.5 g/dL [facility] Hct 35.0(L) 35.6 - 45.5 % [facility] Plt 345 150 - 400 K/cumm [facility] MPV 11.2 9.1 - 12.3 fL [facility] RBC 4.14 3.90 - 5.20 M/cumm [facility] MCV 84.5 81.3 - 96.4 fL [facility] MCH 27.8 27.1 - 33.3 pg [facility] MCHC 32.9 32.3 - 35.7 g/dL [facility] RDW CV 16.6(H) 11.1 - 14.9 % [facility] RDW SD 50.8(H) 35.7 - 48.1 fL [facility] NRBC abs 0.00 0.00 - 0.01 K/cumm [facility] Blood 10/29/2024 11:0 3 AM CDT 10/29/2024 11:21 AM CDT Nathan Moore MD LAB BLOOD ORDERABLES Fin al Result Performing Organization Address City/[facility] Co de Phone Number [facility] [place] [address] * Lipase (10/29/2024 11:03 AM CDT) Pathologist [facility] Lipase 49 10 - 99 Units/L Blood 10/29/2024 11:0 3 AM CDT 10/29/2024 11:21 AM CDT Ari Us MD LAB BLOOD ORDERABLES Final R esult Performing Organization Address [facility] [place] [address] * (ABNORMAL) Hemoglobin A1c (10/29/2024 11:03 AM CDT) [facility] Hgb A1C 9.1(H) 4.0 - 5.6 % Estimated Average Glucose 214 mg/dL [facility] Comment: The ADA recommends reporting an estimated [...] ORDERABLES Marli l Result Performing Organization Address [facility] Co de Phone Number [facility] [place] [address] * Blood gas, venous (10/29/2024 11:03 AM CDT) [facility] pH, Venous 7.35 7.32 - 7.43 PCO2, Venous 50 40 - 50 mmHg [facility] PO2, Venous 41 mmHg [facility] Comment: Interpretive Data No Reference Range Established Current Interpretive Data was last revised on 2017. HCO3 Venous, Calculated 28 20 - 30 mmol/L [facility] BE, venous 1 mmol/L [facility] Comment: Interpretive Data No Reference Range Established Current Interpretive Data was last revised on 2017. Blood 10/29/2024 11:0 3 AM CDT 10/29/2024 11:15 AM CDT us Ari Us MD LAB BLOOD ORDERABLES Final R esult [facility] [place] [address] * (ABNORMAL) Hepatic function panel (10/29/2024 11:03 AM CDT) Bilirubin, total 0.4 0.1 - 1.2 mg/dL Bilirubin, direct <0.2 0.1 - 0.3 mg/dL [facility] Protein, pl 8.5 6.5 - 8.5 g/dL [facility] Albumin 4.4 3.5 - 5.0 g/dL [facility] Alk phos 336(H) 40 - 130 Units/L [facility] ALT 42 7 - 45 Units/L [facility] AST 39 10 - 45 Units/L [facility] Blood 10/29/2024 11:0 3 AM CDT 10/29/2024 11:21 AM CDT us Ari Us MD LAB BLOOD ORDERABLES Final R esult [facility] [place] [address] * (ABNORMAL) Basic metabolic panel (10/29/2024 11:03 AM CDT) Sodium 138 135 - 145 mmol/L Potassium, pl 4.0 3.3 - 4.9 mmol/L [facility] Chloride 94(L) 97 - 110 mmol/L [facility] CO2 26 22 - 32 mmol/L [facility] Anion gap 18(H) 2 - 15 mmol/L [facility] BUN 28(H) 6 - 25 mg/dL [facility] Creatinine 4.75(H) 0.60 - 1.10 mg/dL [facility] Glucose 358(H) 70 - 199 mg/dL [facility] Comment: Interpretive Data Fasting glucose >/= 126 [...] 2022. Calcium 8.5 8.5 - 10.3 mg/dL [facility] Blood 10/29/2024 11:0 3 AM CDT 10/29/2024 11:21 AM CDT us Ari Us MD LAB BLOOD ORDERABLES Final R esult [facility] [place] [address] * (ABNORMAL) POCT ketone, blood (10/29/2024 10:22 AM CDT) Beta-Hydroxybut yrate, POC 1.2(H) 0.0 - 0.5 mmol/L Blood 10/29/2024 10:2 2 AM CDT 10/29/2024 10:22 AM CDT us Nathan Moore MD LAB POCT ORDERABLES - DE VICE Final Result [facility] [place] [address] * (ABNORMAL) POCT glucose (10/29/2024 10:21 AM CDT) Glucose, POC 274(H) 70 - 199 mg/dL Blood 10/29/2024 10:2 1 AM CDT 10/29/2024 10:21 AM CDT us Nathan Moore MD LAB POCT ORDERABLES - DE VICE Final Result [facility] [place] [address] * XR Abdomen 1 View AP (10/27/2024 [...] by: Rony Rodriguez M.D. us Micaela Suero [employer]OCK [employer]SE WORK[employer] IMG XR PROCEDURES Final Re sult * TSH (01/09/2024 3:52 PM CDT) Thyroid Stimulating Hormone 2.46 0.30 - 4.20 mcIUnit/mL Blood 01/09/2024 3:52 PM CDT 01/09/2024 4:46 PM CDT us Sailaja Ramos MD LAB BLOOD ORDERABLES Final Result Performing Organization Address City/State/[facility] Co de Phone Number [facility] [place] [address] * Hepatitis panel, acute Blood (12/24/2023 7:26 AM CDT) Pathologist [facility] Hep A IgM Nonreactive Nonreactive Comment: Interpretive Data: If Hep A IgM Ab is reported as Equivocal, a new sample should be drawn in two weeks for testing. Current interpretive data was last revised on 19. Hep B core IgM Nonreactive Nonreactive [facility] Comment: Interpretive Data If HepB Core IgM Ab is reported as Equivocal, a new sample should be drawn in two weeks for testing. Current interpretive data was last revised on 19. Hep C Ab Nonreactive [facility]reactive [facility] Comment: Antibodies to HCV not detected. Does [...] last revised on 2019. 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 Source: [facility]. 08/20/2024 [facility] Comment:Added from external infection. Source: [facility]. [facility] 10/31/2024 10/31/2024 Insurance MEDICARE [facility] Address: [address] [address] [place] [address] [place] Advance Directives For more information, please contact: [phone] * Full Code (Latest Code Status on File) Date Activated Date Inactivated Comments 12/26/2024 8:03 AM 12/26/2024 3:18 PM * Full Code Date Activated Date Inactivated Comments 10/29/2024 8:40 PM 11/05/2024 2:34 PM * Full Code Date Activated Date Inactivated Comments 2024 2:03 PM 06/28/2024 7:52 PM * Full Code Date Activated Date Inactivated Comments 2024 1:44 PM 2024 2:03 PM * Full Code Date Activated Date Inactivated Comments 02/09/2024 4:42 PM 02/14/2024 8:55 PM Care Teams Exhibits Coordinator Relationship Specialty Start Date End Date Edgardo Aldridge MD [address] [facility] [address] [place] [address] PCP - General Family Medicine 04/02/23 Andrei Chaves MD PhD [address] [address] Referring Physician General Surgery 03/17/23 Olivia Phelps MD [address] [facility] [address] [place] [address] Consulting Physician Nephrology 03/17/23 Odilon Tellez MD [address] [facility] [address] [place] [address] Referring Physician Nephrology 11/12/23 Ayaka Thomas MD [address] [facility] [address] [place] [address] Fellow Internal Medicine 12/17/23 Yumi Jones NP [address] [facility] [address] [place] [address] Nurse Practitioner Hospice and Palliative Medicine 08/16/23 Mendel Bowling RN [address] [facility] [address] [place] [address] Stock Puller 11/07/24 Odilon Tellez MD [address] [facility] [address] [place] [address] Consulting Physician Nephrology 12/05/24 Mavis Barahona, RN [address] [facility] [address] [place] [address] Dress Designer 12/20/24
[2025-01-01 13:40] LABS: Troponin I < 0.012 ng/mL (0.000-0.034)
--- OUTSIDE RECORDS SUMMARY | 2025-01-01 13:40 | XMS_ITS | Encounter Summary ---
Author Organization [facility] Facility Care Team Providers Care Manager Wireless Name Role Phone Unknown, Notinfile Primary Care Provider Unavail able Lay Villalta MD Primary Care Provider [phone] Tremayne Kebede MD Unavailable [phone] Georgia Mcbride CARBON LAMP CLEANER Unavailable [phone] Miscellaneous, Not In File Unavailable Unava ilable Eun Camacho Primary Care Provider + Cony Pemberton GETTER OPERATOR Unavailable [phone] Antonette Vernon RN Unavailable [phone] Andrei Chaves MD PhD Unavailable [phone] Olivia Phelps MD Unavailable [phone] Edgardo Aldridge MD Primary Care Provider [phone] Odilon Tellez MD Unavailable [phone] Miscellaneous, Not In File Unavailable Unava ilable Ct Boggs GETTER OPERATOR Unavailable [phone] Odilon Tellez MD Unavailable [phone] Tracey Felix RN Unavailable [phone] Ayaka Thomas MD Unavailable [phone] Yumi Jones NP Unavailable [phone] Ruthy Leahy GETTER OPERATOR Unavailable Unavaila ble Feli Boggs RN Unavailable [phone] Mendel Bowling RN Unavailable [phone] Leslie Baptiste [facility] Unavailable [phone] Mendel Bowling RN Unavailable [phone] Odilon Tellez MD Unavailable [phone] Mavis Barahona RN Unavailable [phone] Encounter Details Date Type Department Care Team (Latest Contact Info) Description 06/07/2018 Orders Only [facility] CLINCONV ProviderSotero MD [address] [place] [id number] Social History Tobacco Use Types Packs/Day Years Used Date Smoking Tobacco: Never Comments Unknown Sex and Gender Information Value Date Recorded Sex Assigned at Not on file Legal Sex Female 9:16 AM ATHLETIC INSTRUCTOR Gender Identity Not on file Sexual Orientation Not on file documented as of this encounter Plan of Treatment Not on file documented as of this encounter Procedures Procedure Name Priority Date/Time Associated Diagnosis Comments SCAN - LABS 2018 12:00 AM ATHLETIC INSTRUCTOR SCAN - LABS 06/13/2018 12:00 AM ATHLETIC INSTRUCTOR SCAN - LABS 06/08/2018 12:00 AM ATHLETIC INSTRUCTOR documented in this encounter Results * SCAN - LABS (2018 12:00 AM ATHLETIC INSTRUCTOR) Narrative 2018 12:00 AM ATHLETIC INSTRUCTOR Ordered by an unspecified provider. Historical Provider Final Res ult * SCAN - LABS (06/13/2018 12:00 AM ATHLETIC INSTRUCTOR) Narrative 06/13/2018 12:00 AM ATHLETIC INSTRUCTOR Ordered by an unspecified provider. Historical Provider Final Res ult * SCAN - LABS (06/08/2018 12:00 AM ATHLETIC INSTRUCTOR) Narrative 06/08/2018 12:00 AM ATHLETIC INSTRUCTOR Ordered by an unspecified provider. us Historical Provider MD Final Res ult documented in this encounter [...] CDT COVID19 02/02/2020 02/02/2020 02/19/2020 3:05 AM ATHLETIC INSTRUCTOR COVID: Recovered Comment:Added based on recent COVID [...] COVID: Suspected 06/15/2023 06/15/2023 06/15/2023 5:53 PM ATHLETIC INSTRUCTOR C. difficile suspected 06/24/2023 06/24/202306/26 6:03 AM CDT COVID: Suspected 06/27/2023 06/27/202306/2606/27/2023 7:07 PM CDT COVID: Suspected 07/10/2023 07/10/2023 07/10/2023 6:50 AM CDT COVID: Suspected 07/13/2023 07/13/2023 07/13/2023 9:45 PM CDT MRSA Comment:MRSA Isolation Residential 06/21/24 10/23/2023 02/09/2024 06/21/2024 6:[address] C. 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 Source: [facility]. 08/20/2024 Carbapenemase, Unspecified Comment:Added from external infection. Source: [facility]. Kleb pneumo KPC 09/23/2024 10/31/2024 3:07 PM C DT CP-DECORATING MACHINE TENDER Comment:Added from external infection. Source: [facility]. Kleb pneumo KPC 10/31/2024 10/31/2024 documented as of this encounter Care Teams Manager Wireless Relationship Specialty Start Date End Date Unknown, Notinfile PCP - General 12/28/16 08/23/18 Lay Villalta MD PCP - General Family Medicine 08/24/18 07/17/21 Eun Camacho PA PCP - General Family Medicine 07/18/21 03/08/23 Edgardo Aldridge MD [address] [facility] [address] [place] [address] PCP - General Family Medicine 04/02/23 Tremayne Kebede MD Consulting Physician Gastroenterology 02/05/20 3 Georgia Mcbride LPN [address] [place] [address] DR [facility] [address] [place] [address] ACO Care Retail Commission Sales Associate 11/28/20 12/19/20 Miscellaneous, Not In File 07/17/21 03/16/23 Cony Pemberton, GETTER OPERATOR [address] [facility] ([facility]) Mailstop [phone] [place] [address] SHOP Outpatient Assistant Basketball Coach 12/07/22 12/07/22 Antonette Vernon, RN [address] [facility] [address] [place] [address] SHOP Outpatient Assistant Basketball Coach 12/08/22 01/05/23 [place] [address] [place] [address] [address] [place] [address] Referring Physician General Surgery 03/17/23 Olivia Phelps MD [address] [facility] [address] [place] [address] Consulting Physician Nephrology 03/17/23 Odilon Tellez MD [address] [facility] [address] 4 [place] [id number] Consulting Physician Nephrology 05/01/23 12/04/24 Miscellaneous, Not In File 07/08/23 01/24/24 Ct Boggs, GETTER OPERATOR [address] [facility] ([facility]) Mailstop [phone] [place] [address] SHOP Outpatient Assistant Basketball Coach 07/09/23 08/05/23 Odilon Tellez MD [address] [facility] [address] [place] [address] Referring Physician Nephrology 11/12/23 Tracey Felix, RN [address] [place] [address] Material Flow Analyst 11/12/23 11/17/23 Ayaka Thomas MD [address] [place] [address] Fellow Internal Medicine 12/17/23 Yumi Jones NP [address] [facility] [address] [place] [address] Nurse Practitioner Hospice and Palliative Medicine 08/16/23 Ruthy Leahy LCSW Stock Feeder 12/31/23 02/22/24 Feli Boggs RN [address] [place] [address] [facility] [address] [place] [address] Salesforce Specialist 12/31/23 01/02/24 Mendel Bowling, KADY [address] [place] [address] [facility] [address] [place] [address] Salesforce Specialist 01/03/24 03/23/24 Leslie Baptiste [address] [facility] [address] [place] [address] Pharmacist Pharmacy 01/13/24 02/03/24 Mendel Bowling RN [address] [place] [address] [address] [place] [address] Salesforce Specialist 11/07/24 Odilon Tellez MD [address] [facility] [address] [place] [address] Consulting Physician Nephrology 12/05/24 Mavis Barahona, RN [address] [address] Material Flow Analyst 12/20/24 documented as of this encounter
--- OUTSIDE RECORDS SUMMARY | 2025-01-01 13:40 | XMS_ITS ---
Author Organization [facility] ([facility]) Address [facility] [address] [address] Care Team Providers Care Stripping Shovel Operator Name Role Phone Unavailable Unavailable Unavailable Allergies, Adverse Reactions, Alerts Allergy Name Allergy Type Status Severity Reaction(s) Onset Date Inactive Date Treating Clinician Comments Metoclopramide Allergy Active Unknown 10-13 18:34: 20 hydrALAZINE Allergy Active Moderate Allergy Hives 4 05:00: 00 Latex Allergy Active Mild Allergy Rash 302 06:00: 00 Medications Ordered Medication Name Filled Medication Name Start Date Stop Date Current Medication? Ordering Clinician Indication Dosage Frequency Signature (SIG) Comments Components Normal Saline Solution 0.9% NaCl 10-16 05:00: 00 Yes [id number] Number of Repeats Allowed: Frequency: Pre-dialys isDosesOrd ered: Arterial Lumen 10 mL Route: Intracathe terDosesOr dered: Venous Lumen 10 mL Route: Intracathe ter diphenhydra mine hydrochlori de 10-16 05:00: 00 Yes [id number] Number of Repeats Allowed: Frequency: Every 4 hours as needed acetaminoph en 10-16 05:00: 00 Yes [id number] Number of Repeats Allowed: Frequency: Every 4 hours as needed Insta-Gluco se 10-16 05:00: 00 Yes [id number] Number of Repeats Allowed: Frequency: Every 30 minutes as needed Tubersol 10-16 05:00: 00 Yes [id number] Number of Repeats Allowed: Frequency: One Time Only on Admission Nitrostat 10-16 05:00: 00 Yes [id number] Number of Repeats Allowed: Frequency: Every 5 minutes as needed loperamide hydrochlori de 10-16 05:00: 00 Yes [id number] Number of Repeats Allowed: Frequency: Every 4 hours as needed ondansetron hydrochlori de 10-16 05:00: 00 Yes [id number] Number of Repeats Allowed: Frequency: Every 4 hours as needed Oxygen 10-16 05:00: 00 Yes [id number] Number of Repeats Allowed: Frequency: As needed Normal Saline Solution 0.9% NaCl 10-13 18:37: 01 Yes [id number] Number of Repeats Allowed: Frequency: Post-dialy sisDosesOr dered: Arterial Lumen 10 mL Route: Intracathe terDosesOr dered: Venous Lumen 10 mL Route: Intracathe ter heparin sodium, porcine 10-13 18:36: 13 Yes [id number] Number of Repeats Allowed: Frequency: Every Dialysis TreatmentD osesOrdere d: Hourly Dose 500 Units/Hr 1:1000 Units/mLRo shinnecock: Intravenou s heparin sodium, porcine 10-13 18:36: 13 Yes [id number] Number of Repeats Allowed: Frequency: Every Dialysis TreatmentD osesOrdere d: Loading Dose 1000 Units 1:1000 Units/mLRo shinnecock: Intravenou s Problems This patient has no known problems. Procedures Procedure Date / Time Performed Performing Clinician Genevieve ce Details Central Venous Catheter (CVC) 2024-09-18 05:00:00 Access Site Chest (Right) DIALYSIS TREATMENT INFORMATION Conventional Hemodialysis Date Type Treatment Start Date Treatment End Date Pre-Treatment Vitals Post-Treatment Vitals Weight Gain BFR DFR Actual UF Dialysis Access October 16, 2024 In-Ce nter Hemod ialys is Treat ment 400 mL/min 800 mL/min DIALYSIS ORDER Dialysis Procedure Orders Type of Dialysis Procedure Order Order Date/Time Observations In-Center Hemodialysis Treatment September Target Weight 69.5 kg Dialysate Flow Rate 800 mL/min Blood Flow Rate 400 mL/min Treatment Time 180 min(total) Max UF Rate 13 mL/kg/hr Base Sodium Dialysate Base Sodium 137 mE q/L dialysate_temp 37 C BiCarb Dialysate BiCarbonate 35 mEq/L Access Concurrent No Arterial Access Central Venous [address] ter (CVC) (Chest (Right)) Venous Access Central Venous [address] ter (CVC) (Chest (Right)) Dialyzer [employer] Optiflux F 180NRe 1218 treatment_bath_code_id Dialysate Bath Potassium Potassium 2 mEq /L Dialysate Bath Calcium Calcium 2.5 mEq/L Encounters No encounter information to report Plan of Treatment Planned Activity Provider Planned Date Details Commen ts Diagnostic Test Pending Odilon Tellez 2024-10-16 05:00:00 Potassium [Moles/volume] in Serum or Plasma [code = 2823-3] Diagnostic Test Pending Odilon Tellez 2024-10-16 05:00:00 Parathyrin.intact [Mass/volume] in Serum or Plasma [code = 2731-8] Diagnostic Test Pending Odilon Tellez 2024-10-16 05:00:00 Sodium [Moles/volume] in Serum or Plasma [code = 2951-2] Diagnostic Test Pending Odilon Tellez 2024-10-17 06:29:41 Hemoglobin [Mass/volume] in Blood [code = 718-7] Diagnostic Test Pending Odilon Tellez 2024-10-16 06:13:15 Ferritin [Mass/volume] in Serum or Plasma [code = 2276-4] Diagnostic Test Pending Odilon Tellez 2024-10-16 06:13:22 Alanine aminotransferase [Enzymatic activity/volume] in Serum or Plasma [code = 1742-6] Diagnostic Test Pending Odilon Tellez 2024-10-16 06:13:22 Parathyrin.intact [Mass/volume] in Serum or Plasma [code = 2731-8] Diagnostic Test Pending Odilon Tellez 2024-10-16 05:00:00 Creatinine [Mass/volume] in Serum or Plasma [code = 2160-0] Diagnostic Test Pending Odilon Tellez 2024-10-16 05:00:00 Ferritin [Mass/volume] in Serum or Plasma [code = 2276-4] Diagnostic Test Pending Odilon Tellez 2024-10-16 05:00:00 Aluminum [Mass/volume] in Serum or Plasma [code = 5574-9] Diagnostic Test Pending Odilon Tellez 2024-10-16 05:00:00 Alanine aminotransferase [Enzymatic activity/volume] in Serum or Plasma [code = 1742-6] Diagnostic Test Pending Odilon Gerber [facility] 2024-10-16 05:00:00 In-Center Hemodialysis Treatment [code = WCO730]
--- OUTSIDE RECORDS SUMMARY | 2025-01-01 13:40 | XMS_ITS | Clinical Summary ---
Author Organization [facility] Address [address] [place] [address] Care Team Providers Care Ecg Technician Name Role Phone Edgardo Aldridge MD Primary Care Provider [phone] Source Comments [facility],non-owned Affiliates and Associated Physician Practices is amultiple site organization consisting of ambulatory clinics and hospital sitesin [place], [place], [place] and [place]. This disclosure is being madepursuant to the Care Everywhere program and may not contain all information available regarding this patient. Last updated 18.[facility] Allergies Active Allergy Reactions Criticality Noted Date Comments Adhesive Sensitivity Rash Medium 03/11/2017 Hydralazine Anaphylaxis,Urticaria High 06/29/2018 Other reaction(s): Hives Hives on face and was not able to swallow Hydroxyzine Anaphylaxis High 09/08/2021 Latex Rash Medium 06/07/2018 Metoclopramide Other,Unknown Low 03/29/2020 Uncontrolled movements Extrapyramidal symptoms Trimethobenzamide Swelling Medium 01/11/2024 Medications * Be aware that medications may not be up to date on this document. Alwaysverify current medications with the patient. insulin glargine (LANTUS) vial Inject 37 Units subcutaneously at bedtime 1 vial 9 Active acetaminophen (TYLENOL) 500 MG tabletIndicati ons:Pain Take 2 (two) tablets by mouth every 6 hours as needed for Pain Reasons: Pain Active carvedilol (Coreg) 6.25 MG tabletIndicati ons:Hypertensi on Take 2 (two) tablets by mouth 2 times daily with morning and evening meal Reasons: High Blood Pressure Active hydrOXYzine HCl (Atarax) 25 MG tabletIndicati ons:Pruritus Take 1 (one) tablet by mouth 3 times daily as needed for Itching Reasons: Itching Active insulin glargine (Lantus SoloStar) penIndications :Type 2 Diabetes Mellitus Inject 15 (fifteen) Units subcutaneously 2 times daily When pt is off insulin pump Reasons: Type 2 Diabetes Active insulin lispro (HumaLOG) 100 UNIT/ML vialIndication s:Type 1 Diabetes Mellitus Inject 1 (one) Units to 3 (three) Units subcutaneously 4 times daily - before meals & nightly 1 unit for every 50 mg/dl blood glucose greater than 200 mg/dl up to max 3 units. 2 units for snack >30g carbs. Reasons: Insulin-Dependent Diabetes Active losartan (Cozaar) 25 MG tabletIndicati ons:Hypertensi on Take 4 (four) tablets by mouth once daily Reasons: High Blood Pressure Active ondansetron (Zofran) 4 MG tabletIndicati ons:Nausea and Vomiting Take 1 (one) tablet by mouth every 6 hours as needed for Nausea/Vomiting Reasons: Nausea and Vomiting Active prochlorperazi ne (Compazine) 10 MG tabletIndicati ons:Nausea and Vomiting Take 1 (one) tablet by mouth every 6 hours as needed for Nausea/Vomiting Reasons: Nausea and Vomiting Active promethazine (Phenergan) 25 MG tabletIndicati ons:Nausea and Vomiting Take 1 (one) tablet by mouth 2 times daily as needed for Nausea/Vomiting Reasons: Nausea and Vomiting Active amLODIPine (Norvasc) 10 MG tablet Take 1 (one) tablet by mouth once daily 4 Active calcitriol (Rocaltrol) 0.5 MCG capsule Take 1 (one) capsule by mouth SEE ADMIN INSTRUCTIONS 3 times per week 4 Active Continuous Glucose Sensor (Dexcom G6 Sensor) MISC USE ONE transmitter FOR 90 DAYS 4 Active Continuous Glucose Sensor (Dexcom G6 Sensor) MISC CHANGE EVERY 10 DAYS 4 Active Continuous Glucose Telephone Operators Supervisor (Dexcom G6 Telephone Operators Supervisor) MARIANNA as directed 3 Active escitalopram (Lexapro) 10 MG tablet Take 1 (one) tablet by mouth once daily 4 Active gabapentin (Neurontin) 100 MG capsule Take 1 (one) capsule by mouth 3 times daily 4 Active Gvoke HypoPen 2-Pack 1 MG/0.2ML SOAJ 4 Active OneTouch Verio test strip TEST FOUR TIMES DAILY BEFORE MEALS AND AT BEDTIME Active Glucose 4-6 GM-MG Take 16 g by mouth as needed 4 025 Active insulin aspart (NovoLOG) vial Inject subcutaneously continuous Active Insulin Disposable Pump (Omnipod 5 G6 Intro, Gen 5,) KIT CHANGE EVERY 3 DAYS 3 Active Insulin Disposable Pump (Omnipod 5 G6 Pods, Gen 5,) MISC To change POD every 3 days. 4 Active insulin lispro Protamine & lispro (HumaLOG Mix 50/50) pen insulin lispro protamin-lispro 100 unit/mL (50-50) 3 Active BD Pen Needle Diandra U/F 32G X 4 MM MISC 4 Active TRUEplus 5-Bevel Pen Mershon 31G X 5 MM needle USE TO INJECT 5 TIMES PER DAY 3 Active BD Veo Insulin Syr U/F /Unit 31G X 15/64 0.3 ML syringe 3 times daily as needed DIRECTED 4 Active Isopropyl Alcohol Wipes (RA Isopropyl Alcohol Wipes) 70 % MISC as directed 4 Active Lancets (ONETOUCH DELICA PLUS 33G EXTRA FINE LANCET) USE THREE TIMES DAILY AND AT BEDTIME 3 Active scopolamine (Transderm-Sco p) 1 MG patch Apply 1 (one) patch to skin every 72 hours as needed Active omeprazole (PriLOSEC) 40 MG capsuleIndicat ions:Ulcer of esophagus without bleeding TAKE 1 CAPSULE BY MOUTH TWICE A DAY - BEFORE BREAKFAST AND SUPPER 180 capsule 1 4 Active Active Problems Problem Noted Date Diagnosed Date Intractable vomiting without nausea 06/09/2018 Diabetic ketoacidosis withou t coma associated with type 1 diabetes mellitus 02/02/2017 Metabolic acidosis 10/07/2015 Assessment & Plan (10/07/2015 7:44 AM CDT): Correct ketosis as outlined above Resolved Problems Problem Noted Date Diagnosed Date Resolved Date DKA (diabetic ketoacidoses) 10/07/2015 10/21/2015 Overview (01/17/2021): IMO 2020 Assessment & Plan (10/07/2015 7:43 AM CDT): Insulin drip IVF Serial electrolytes DKA (diabetic ketoacidoses) 02/26/2015 03/12/2015 Overview (01/17/2021): IMO 2020 Family History Medical History Relation Name Comments Seizures Brother CAD (Coronary Artery Disease) Maternal Grandmother Cancer Mother Relation Name Status Comments Brother Maternal Grandmother Mother Other Social History Tobacco Use Types Packs/Day Years Used Date Smoking Tobacco: Never Smokeless Tobacco: Never Tobacco Cessation:Counseling Given: Not Answered Alcohol Use Standard Drinks/Week Comments Yes 0 (1 standard drink = 0.6 oz pur e alcohol) very seldom OASIS D0700: Social Isolation Answer Da te Recorded Frequency of experiencing loneliness or isolatio n Sometimes 12/15/2022 OASIS A1250: Transportation Answer Date Recorded Lack of Transportation (Medical) No 12/15/2022 Lack of Transportation (Non-Medical) No 12/15/2022 Patient Unable or Declines to Respond No 12/15/2022 OASIS B1300: Health Literacy Answer Pablo e Recorded Frequency of needing help to read materials from doctor or pharmacy Never 12/15/2022 Comments No Sex and Gender Information Value Date Recorded Sex Assigned at Not on file Legal Sex Female 5:44 AM IT ASSOCIATE Gender Identity Not on file Sexual Orientation Not on file 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 Not on file Not on file Not o n file Last Filed Vital Signs Vital Sign Reading Time Taken Comments Blood Pressure 118/75 02/03/2024 10:30 AM CDT Pulse 45 02/03/2024 10:30 AM CDT Temperature 35.9 C (96.6 F) 02/03/2024 10:18 AM CDT Respiratory Rate 11 02/03/2024 10:30 AM CDT Oxygen Saturation 94% 02/03/2024 10:30 AM CDT Inhaled Oxygen Concentration - - Weight 67.2 kg (148 lb 1.6 oz) 02/03/2024 7:23 A M CDT Height 162.6 cm (5' 4) 02/03/2024 7:23 AM CDT Body Mass Index 25.42 02/03/2024 7:23 AM CDT Plan of Treatment Health Maintenance Due Date Last Done Comments MEDICARE AWV 12 MONTHS 1995 HIV SCREENING 06/16/2010 DTAP/TDAP/TD VACCINES (1 - Tdap) 06/16/2014 PNEUMOCOCCAL VACCINE (1 of 2 - PCV) 06/16/2014 HEPATITIS B VACCINE (1 of 3 - Risk Dialysis 4-dose series) 2015 PAP SMEAR 06/16/2016 DIABETES RETINOPATHY SCREENING 06/07/2018 DIABETES-FOOT EXAM WITH MONOFILAMENT 06/07/2018 HPV VACCINE (1 - 3-dose SCDM series) 06/16/2022 DEPRESSION SCREENING 04/19/2024 DIABETES - URINE PROTEIN SCREENING 04/19/2024 10/17/2022, 09/18/2022, 02/12/2021, Additional history exists DIABETES-HGB A1C 06/21/2024 12/23/2023, 09/2023, 09/23/2023, Additional history exists COVID-19 VACCINE (2 - season) 2024 01/24/2021 INFLUENZA VACCINE (#1) 2024 , 02/16/2023, 02/14/2021, Additional history exists DIABETES-SERUM CREATININE 01/31/20252023, 02/26/2023, 02/26/2023, Additional history exists ZOSTER VACCINE (1 of 2) 06/16/2045 HEPATITIS C SCREENING Completed 01/22/2024 , 09/23/2023, 02/09/2023, Additional history exists HIB VACCINE Aged Out No longer eligi ble based on patient's age to complete this topic MENINGOCOCCAL (Group B) VACCINE SHARED DECISION-MAKING Aged Out No longer eligible based on patient's age to complete this topic MENINGOCOCCAL GROUPS A/C/Y/W VACCINE Aged Out No longer eligible based on patient's age to complete this topic Goals Goal Patient Goal Type Associated Problems Recent Progress Patient-Stated? Author Medication Management General On track( 024 12:22 PM CDT) Ari Chow, KADY Note: Expected end date: ongoing Interventions: Take all medications as prescribed Let your doctor know right away about any changes in your medications Make sure to request a refill of your medication at least one week prior to your last dose Procedures Procedure Name Priority Date/Time Associated Diagnosis Comments BASIC METABOLIC PANEL (CALCIUM TOTAL) STAT 02/01/2024 9:01 AM CDT Preop examination HEMOGLOBIN A1C Routine 06/08/2018 7:21 AM IT ASSOCIATE from Last 3 Months or Most Recently Relevant to Health Maintenance Results * (ABNORMAL) BASIC METABOLIC PANEL (CALCIUM TOTAL) (02/01/2024 9:01 AM CDT) BUN 54(H) 7 - 26 mg/dL 02/01/2024 9:58 AM [facility] Creatinine 6.37(H) 0.56 - 0.96 mg/dL 02/01/2024 9:58 AM [facility] Sodium 136 136 - 145 mmol/L 02/01/2024 9:58 AM [facility] Potassium 5.8(H) 3.5 - 4.5 mmol/L 02/01/2024 9:58 AM [facility] Chloride 106 98 - 107 mmol/L 02/01/2024 9:58 AM [facility] CO2 20(L) 22 - 29 mmol/L 02/01/2024 9:58 AM [facility] Glucose 35(LL) 70 - 115 mg/dL 02/01/2024 9:58 AM [facility] Calcium 8.4 8.4 - 10.2 mg/dL 02/01/2024 9:58 AM [facility] Anion Gap 10 6 - 16 02/01/2024 9:58 AM [facility] BUN/Creatinine Ratio 8 7 - 23 02/01/2024 9:58 AM [facility] Osmolality Calculated 293 275 - 295 mOsm/kg 02/01/2024 9:58 AM CDT [facility] eGFR by CKD-EPI 9(L) >=90 mL/min/1.7 3 m2 02/01/2024 9:58 AM CDT [facility] Blood BLOOD SPECIMEN / Unknown Venipuncture / Unknown 02/01/2024 9:01 AM CDT 02/01/2024 9:08 AM CDT Tess Dunham MD LAB - CHEMISTRY ORDERABLES Final Result [facility] [address] [place] [address], [facility] [phone] * (ABNORMAL) HEMOGLOBIN A1C (06/08/2018 7:21 AM IT ASSOCIATE) [facility] Hemoglobin A1c 14.5(H) 4.2 - 6.3 % 06/08/2018 8:06 AM IT ASSOCIATE [facility] Estimated Average Glucose 369 mg/dL 06/08/2018 8:06 AM IT ASSOCIATE [facility] Blood BLOOD SPECIMEN / Unknown Lab Venipuncture / Unknown 06/08/2018 7:21 AM IT ASSOCIATE 06/08/2018 7:37 AM IT ASSOCIATE Corina Simmons MD LAB - CHEMISTRY ORDERABLES Final Result [facility] [address] [place] [address] from Last 3 Months or Most Recently Relevant to Health [place] [address] [place] [address] MEDICAID [place] [facility] MEDICAID - [place] MEDICARE MEDICAID [facility] Advance Directives * Full Code (Latest Code Status on File) Date Activated Date Inactivated Comments 06/08/2018 12:18 AM 06/10/2018 6:03 PM * Full Code Date Activated Date Inactivated Comments 06/07/2018 11:35 PM 06/08/2018 12:18 AM * Full Code Date Activated Date Inactivated Comments 02/02/2017 3:16 AM 02/08/2017 3:21 PM * Full Code Date Activated Date Inactivated Comments 10/07/2015 12:58 AM 10/08/2015 8:27 AM * Full Code Date Activated Date Inactivated Comments 07/07/2015 10:29 AM 07/09/2015 1:11 PM Care Teams Ecg Technician Relationship Specialty Start Date End Date Edgardo Aldridge MD [address] [place] [address] PCP - General Family Medicine 12/28/23
--- OUTSIDE RECORDS SUMMARY | 2025-01-01 13:40 | XMS_ITS ---
Author Organization [facility] Address [address] [place] [address] Care Team Providers Care Exchange Operator Name Role Phone Andrei Chaves MD PhD Unavailable [phone] Olivia Phelps MD Unavailable [phone] Edgardo Aldridge MD Primary Care Provider [phone] Odilon Tellez MD Unavailable [phone] Ayaka Thomas MD Unavailable [phone] Yumi Jones NP Unavailable [phone] Mendel Bowling RN Unavailable [phone] Odilon Tellez MD Unavailable [phone] Mavis Barahona RN Unavailable [phone] Transplant Episode Kidney Candidate [facility] ([place], [place]) - [facility] Referred on 12/05/2024 Marked as Active on 12/28/2024 Reason: Finance Approved Ready for Evaluation Kidney CoordinatorMavis Barahona RN Fax: N/A Email: N/A Scores Score Value Updated Exceptions/Reas ons CPRA Not available EPTS (Calc) 24 01/01/2025 Care Team Name Role Phone Fax Email Mavis Barahona RN Kidney Coordinator [phone] N/A N/A Kristine Leyva Miniature Train Driver [phone] N/A N/A Gely Bates Primary Wheel Worker N/A N/A N/A Odilon Tellez MD Referring Physician [phone] N/A Events Pre-Transplant Referred: 12/05/2024 Dialysis History Dialysis History Start End Type Comments Center 10/23/[address] [facility] - [facility] Dialysis Center Information Center Phone Fax Address [facility] [phone] [place] [id number]
--- OUTSIDE RECORDS SUMMARY | 2025-01-01 13:40 | XMS_ITS | Encounter Summary ---
Author Organization [facility] Address [address] [place] [address] Care Team Providers Care Manual Equipment Mechanic Name Role Phone Andrei Chaves MD PhD Unavailable [phone] Olivia Phelps MD Unavailable [phone] Edgardo Aldridge MD Primary Care Provider Odilon Tellez MD Unavailable [phone] Odilon Tellez MD Unavailable [phone] Ayaka Thomas MD Unavailable Yumi Jones NP Unavailable [phone] Mendel Bowling RN Unavailable [phone] Odilon Tellez MD Unavailable [phone] Mavis Barahona RN Unavailable [phone] Encounter Details Date Type Department Care Team (Late st Contact Info) Description 11/23/2024 Results Follow-Up [facility] Family Medicine at [address] [place] [address] Edgardo Aldridge MD [address] [place] [address] [address] [place] [address] SCAN - RADIOLOGY/IMAGING Social History Tobacco Use Types Packs/Day Years Used Date Smoking Tobacco: Never Smokeless Tobacco: Never Alcohol Use Standard Drinks/Week Comments Not Currently 0 (1 standard drink = 0.6 oz pur e alcohol) [facility] Utilities Answer Date Recorded In the past 12 months has th e electric, gas, oil, or water company threatened [...] often do you attend chur ch or yazidism services? Never 11/07/2024 Do you belong to any clubs o r organizations such as uatsdin groups, unions, fraternal or athletic groups, or school groups? No 11/07/2024 How often do you attend meet ings of the clubs or organizations you belong to? Never 11/07/2024 Are you , , di vorced, , never , or living with a partner? Never 11/07/2024 AUDIT-C Answer Date Recorded Q1: How often do you have a drink containing alcohol? Never 10/25/2024 Q2: How many drinks containi ng alcohol do you have on a typical day when you are drinking? Patient does not drink Q3: How often do you have si x or more drinks on one occasion? Never 10/25/2024 Overall Financial Resource Strain (CARDIA) Answe r Date Recorded How hard is it for you to pa y for the very basics like food, housing, medical care, and heating? Not hard at all 11/07/2024 PHQ-2 Answer Date Recorded PHQ-2 Total Score 0 11/01/2024 [facility] [place] [facility] Occupat ional Health - Occupational Stress [...] the money to buy more. Never true 07/22/20 25 Within the past 12 months, t [...] place to sleep or slept in a penitentiary (including now)? No 08/30/2023 PHQ-9 Answer Date [...] any time in the past 12 m [facility], were you homeless or living in a penitentiary (including now)? No 11/07/2024 Personal Safety Answer Date Recorded Have you ever been in or are you currently in a harmful physical or emotional relationship or is someone making you feel afraid or unsafe? Denies 10/30/2024 Comments Unknown Sex and Gender Information Value Date Recorded Sex Assigned at Not on file Legal Sex Female 9:16 AM COMMERCIAL LINES MANAGER Gender Identity Not on file Sexual Orientation Not on file documented as of this encounter Plan of Treatment Not on file documented as of this encounter Goals Goal Patient Goal Type Associated Problems Recent Progress Patient-Stated? Author JACKELYN General Goal - Patient schedules and keeps appointments with all recommended providers ACO Care Management On track(2024 9:00 AM CDT) No Mendel Bowling, KADY Note: Problem: Potential for medical complications [...] Management On track(2024 9:00 AM CDT) Mendel Jerez RN Note: Problem: High Risk medication - [...] a stool softener/laxative to prevent bowel issues. 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 Source: [facility]. 08/20/2024 CP-MOTION PICTURE DIRECTOR Comment:Added from external infection. Source: [facility]. Kleb pneumo [facility] 10/31/2024 10/31/2024 documented as of this encounter Care Teams Manual Equipment Mechanic Relationship Specialty Start Date End Date Edgardo Aldridge MD [address] [facility] [address] [place] [address] PCP - General Family Medicine 04/02/23 Andrei Chaves MD PhD [address] [place] [address] Referring Physician General Surgery 03/17/23 Olivia Phelps MD [address] [facility] [address] [place] [address] Consulting Physician Nephrology 03/17/23 Odilon Tellez MD [address] [facility] [address] [place] [address] Consulting Physician Nephrology 05/01/23 12/04/24 Odilon Tellez MD [address] [facility] [address] [place] [address] Referring Physician Nephrology 11/12/23 Ayaka Thomas MD [address] [facility] [address] [place] [address] Fellow Internal Medicine 12/17/23 Yumi Jones NP [address] [place] [address] Nurse Practitioner Hospice and Palliative Medicine 08/16/23 Mendel Bowling, KADY [address] [place] [address] Metal Casket Assembler 11/07/24 Odilon Tellez MD [address] [place] [address] Consulting Physician Nephrology 12/05/24 Mavis Barahona, RN [address] [facility] [address] [place] [address] Leadership Development Manager 12/20/24 documented as of this encounter
--- OUTSIDE RECORDS SUMMARY | 2025-01-01 13:40 | XMS_ITS | Encounter Summary ---
Author Organization [facility] Facility Care Team Providers Care Social Science Teacher Name Role Phone Unknown, Notinfile Primary Care Provider Unavail able Lay Villalta MD Primary Care Provider [phone] Tremayne Kebede MD Unavailable [phone] Georgia Mcbride WIND FARM ELECTRICAL SYSTEMS DESIGNER Unavailable [phone] Miscellaneous, Not In File Unavailable Unava ilable Eun Camacho Primary Care Provider + Cony Pemberton LINE MAINTAINER Unavailable [phone] Antonette Vernon RN Unavailable [phone] Andrei Chaves MD PhD Unavailable [phone] Olivia Phelps MD Unavailable [phone] Edgardo Aldridge MD Primary Care Provider [phone] Odilon Tellez MD Unavailable [phone] Miscellaneous, Not In File Unavailable Unava ilable Ct Boggs LINE MAINTAINER Unavailable [phone] Odilon Tellez MD Unavailable [phone] Tracey Felix RN Unavailable [phone] Ayaka Thomas MD Unavailable [phone] Yumi Jones NP Unavailable [phone] Ruthy Leahy LINE MAINTAINER Unavailable Unavaila Feli Dominguez RN Unavailable Mendel Bowling RN Unavailable [phone] Leslie Baptiste [facility] Unavailable Mendel Bowling RN Unavailable [phone] Odilon Tellez MD Unavailable [phone] Mavis Barahona RN Unavailable [phone] Encounter Details Date Type Department Care Team (Latest Contact Info) Description 06/10/2018 Orders Only [facility] CLINCONV Provider, MD Sotero [address] [place] [id number] Social History Tobacco Use Types Packs/Day Years Used Date Smoking Tobacco: Never Comments Unknown Sex and Gender Information Value Date Recorded Sex Assigned at Not on file Legal Sex Female 9:16 AM MACHINE HAND Gender Identity Not on file Sexual Orientation Not on file documented as of this encounter Plan of Treatment Not on file documented as of this encounter Procedures Procedure Name Priority Date/Time Associated Diagnosis Comments SCAN - LABS 06/15/2018 12:00 AM MACHINE HAND documented in this encounter Results * SCAN - LABS (06/15/2018 12:00 AM MACHINE HAND) Narrative 06/15/2018 12:00 AM MACHINE HAND Ordered by an unspecified provider. Historical Provider [...] CDT COVID19 02/02/2020 02/02/2020 02/19/2020 3:05 AM MACHINE HAND COVID: Recovered Comment:Added based on recent COVID [...] COVID: Suspected 06/15/2023 06/15/2023 06/15/2023 5:53 PM MACHINE HAND C. difficile suspected 06/24/2023 06/24/202306/26 6:03 AM CDT COVID: Suspected 06/27/2023 06/27/2023 06/27/2023 7:07 PM CDT COVID: Suspected 07/10/2023 07/10/2023 07/10/2023 6:50 AM CDT COVID: Suspected 07/13/2023 07/13/2023 07/13/2023 9:45 PM CDT MRSA Comment:MRSA Isolation Longterm 06/21/24 10/23/2023 02/09/2024 06/21/2024 6:[address] C. 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 Source: [facility]. 08/20/2024 Carbapenemase, Unspecified Comment:Added from external infection. Source: [facility]. Kleb pneumo [facility] 09/23/2024 10/31/2024 3:07 PM C DT CP-TOLL TEST WORKER Comment:Added from external infection. Source: [facility]. Kleb pneumo [facility] 10/31/2024 10/31/2024 documented as of this encounter Care Teams Social Science Teacher Relationship Specialty Start Date End Date Unknown, Notinfile PCP - General 12/28/16 08/23/18 Lay Villalta MD PCP - General Family Medicine 08/24/18 07/17/21 Eun Camacho PA PCP - General Family Medicine 07/18/21 03/08/23 Edgardo Aldridge MD [address] [facility] [address] or [address] [place] [address] PCP - General Family Medicine 04/02/23 Tremayne Kebede MD Consulting Physician Gastroenterology 02/05/20 3 Georgia Mcbride LPN [address] [place] [address] ACO Care Envelope Machine Operator 11/28/20 12/19/20 Miscellaneous, Not In File 07/17/21 03/16/23 Cony Pemberton, LINE MAINTAINER [address] [facility] ([facility] Mailstop [phone] [place] [address] SHOP Outpatient Application Architect 12/07/22 12/07/22 Antonette Vernon, KADY [address] [place] [address] SHOP Outpatient Application Architect 12/08/22 01/05/23 Andrei Chaves MD PhD [address] [place] [address] Referring Physician General Surgery 03/17/23 Olviia Phelps MD [address] [place], [place] [address] Consulting Physician Nephrology 03/17/23 Odilon Tellez MD [address] [place], [place] [id number] Consulting Physician Nephrology 05/01/23 12/04/24 Miscellaneous, Not In File 07/08/23 01/24/24 Ct Boggs, [facility] [address] [facility] ([facility]) Mailstop [phone] [place] [address] SHOP Outpatient Application Architect 07/09/23 08/05/23 Odilon Tellez MD [address] [place] [address] Referring Physician Nephrology 11/12/23 Tracey Felix, KADY [address] [place] [address] Quality Tech 11/12/23 11/17/23 Ayaka Thomas MD [address] [place] [address] Fellow Internal Medicine 12/17/23 Yumi Jones NP [address] [place] [address] Nurse Practitioner Hospice and Palliative Medicine 08/16/23 Ruthy Leahy LCSW Spray Machine Tender 12/31/23 02/22/24 Feli Boggs, RN [address] [place] [address] Cook Frozen Dessert 12/31/23 01/02/24 Mendel Bowling, KADY [address] [place] [address] Cook Frozen Dessert 01/03/24 03/23/24 Leslie Baptiste [address] [place] [address] Pharmacist Pharmacy 01/13/24 02/03/24 Mendel Bowling, KADY [address] [place] [address] Cook Frozen Dessert 11/07/24 Odilon Tellez MD [address] [place] [address] Consulting Physician Nephrology 12/05/24 Mavis Barahona, RN [address] [facility] [address] [place] [address] Quality Tech 12/20/24 documented as of this encounter
--- OUTSIDE RECORDS SUMMARY | 2025-01-01 13:40 | XMS_ITS | Encounter Summary ---
Author Organization [facility] Address [address] [place] [address] Phone Care Team Providers Care High School Assistant Principal Name Role Phone Andrei Chaves MD PhD Unavailable [phone] Olivia Phelps MD Unavailable [phone] Edgardo Aldridge MD Primary Care Provider Odilon Tellez MD Unavailable [phone] Ayaka Thomas MD Unavailable [phone] Yumi Jones NP Unavailable [phone] Mendel Bowling RN Unavailable [phone] Odilon Tellez MD Unavailable [phone] Mavis Barahona RN Unavailable [phone] Encounter Details Date Type Department Care Team (Late st Contact Info) Description 12/28/2024 Results Follow-Up [facility] Medicine Gastroenterology [address] [facility] 12th [place] [address] [place] [id number] Young Vasquez MD [address] [facility] [address] [address] [place] [address] Surgical pathology Social History Tobacco Use Types Packs/Day Years Used Date Smoking Tobacco: Never Smokeless Tobacco: Never Alcohol Use Standard Drinks/Week Comments Not Currently 0 (1 standard drink = 0.6 oz pur e alcohol) [facility] Utilities Answer Date Recorded In the past [...] often do you attend chur ch or nondenominational services? Never 11/07/2024 Do you belong to any clubs o r organizations such as zoroastrianism groups, unions, fraternal or athletic groups, or [...] Date Recorded PHQ-2 Total Score 0 11/01/2024 [facility] - Occupational Stress Questionnaire Answer Date Recorded [...] place to sleep or slept in a senior living (including now)? No 08/30/2023 PHQ-9 Answer Date [...] any time in the past [address] [facility], were you homeless or living in a senior living (including now)? 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 The plan for PEG-J documented in this encounter Plan of Treatment Not on file documented as of this encounter Goals Goal Patient Goal Type Associated Problems Recent Progress Patient-Stated? Author JACKELYN General Goal - Patient schedules and keeps appointments with all recommended providers ACO Care Management On track(2024 9:00 AM CDT) No Mendel Bowling, RN Note: Problem: Potential for medical complications and [...] On track(2024 9:00 AM CDT) No Mendel Bowling RN Note: Problem: High Risk medication - [...] Time 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 Source: [facility]. 08/20/2024 CP-PROCESS COACH Comment:Added from external infection. Source: [facility]. Kleb pneumo [facility] 10/31/2024 10/31/2024 documented as of this encounter Care Teams High School Assistant Principal Relationship Specialty Start Date End Date Edgardo Aldridge MD [address] [facility] [address] [place] [address] PCP - General Family Medicine 04/02/23 Andrei Chaves MD PhD [address] [facility] [address] [place] [address] Referring Physician General Surgery 03/17/23 Olivia Phelps MD [address] [facility] [address] [place] [address] Consulting Physician Nephrology 03/17/23 Odilon Tellez MD [address] [facility] [address] [place] [address] Referring Physician Nephrology 11/12/23 Ayaka Thomas MD [address] [facility] [address] [place] [address] Fellow Internal Medicine 12/17/23 Yumi Jones NP [address] [place] [address] Nurse Practitioner Hospice and Palliative Medicine 08/16/23 Mendel Bowling RN [address] [address] [place] [address] Welding Instructor 11/07/24 Odilon Tellez MD [address] [place] [address] Consulting Physician Nephrology 12/05/24 Mavis Barahona, RN [address] [facility] [address] [place] [address] Building Supervisor 12/20/24 documented as of this encounter
--- OUTSIDE RECORDS SUMMARY | 2025-01-01 13:40 | XMS_ITS | Clinical Summary ---
Author Organization [facility] Address [address] [place] [address] Phone Care Team Providers Care Printer Slotter Operator Name Role Phone Eun Camacho Primary Care Provider [phone] Allergies Active Allergy Reactions Criticality Noted Date Comments Hydralazine Hives 02/14/2020 Metoclopramide Other (see Comments) 07/06/2021 Extrapyramidal symptoms Medications clonazePAM (KlonoPIN) 0.5 MG Tablet Take 0.5 mg by mouth 2 times daily. Active promethazine (PHENERGAN) 25 MG Tablet Take 25 mg by mouth every 6 hours as needed. Active ondansetron (Zofran) 4 MG Tablet Take 1 Tablet by mouth every 8 hours as needed for Nausea - 1st line. 15 Tablet 2 Active insulin glargine (LANTUS) 100 UNIT/ML Solution 25 Units by Subcutaneous route nightly. 10 mL 2 Active losartan (COZAAR) 50 MG Tablet Take 1 Tablet by mouth daily. 90 Tablet 2 Active prochlorperazin e (COMPAZINE) 10 MG Tablet Take 1 Tablet by mouth every 6 hours as needed for Nausea - 1st line. 10 Tablet 2 Active traMADol (ULTRAM) 50 MG TabletIndicatio ns:Musculoskele carolyn pain Take 1 Tablet by mouth every 8 hours as needed for Severe pain. 12 Tablet 2 Active Insulin Aspart (NovoLOG) 100 UNIT/ML Solution 0-15 Units by Subcutaneous route 3 times daily (after meals). Sliding Scale 1 unit for every 25 carbs eaten +1 unit for every 50 for sugar over 150 2 Active diazePAM (VALIUM) 10 MG Tablet Take 10 mg by mouth every 6 hours as needed for Muscle spasms (helps me stop vomiting). Active hydrOXYzine (ATARAX) 25 MG Tablet 3 Active amLODIPine (NORVASC) 5 MG Tablet Take 1 Tablet by mouth daily. 90 Tablet 3 Active Active Problems Problem Noted Date Diagnosed Date Hyperglycemia 08/24/2022 Dehydration 08/24/2022 Acute kidney injury superimposed on CKD 07/12/19 Diabetic ketosis without coma 07/11/2022 Intractable vomiting with nausea 07/03/2021 Leukocytosis 2021 Chronic anemia 2021 Thrombocytosis 2021 Epigastric pain 2021 Status post laparoscopic cholecystectomy 022 HLD (hyperlipidemia) 06/03/2021 Gastroparesis 06/03/2021 Anxiety 06/03/2021 Depression 06/03/2021 Malnutrition 06/03/2021 Exhausted vascular access 03/11/2020 Cyclic vomiting syndrome 03/11/2020 GERD (gastroesophageal reflux disease) 0 HTN (hypertension) 03/11/2020 Diabetic ketoacidosis withou t coma associated with type 1 diabetes mellitus 02/14/2020 Nausea & vomiting 02/14/2020 Wound of left ankle 02/14/2020 COVID-19 virus infection 01/18/2020 Diabetes mellitus type 1 Resolved Problems Problem Noted Date Diagnosed Date Resolved Date Cyclical vomiting 06/03/2021 06/08/2021 Diabetic ketoacidosis withou t coma associated with type 1 diabetes mellitus 04/02/2020 04/04/2020 Family History Medical History Relation Name Comments Seizures Brother 1 No Known Problems Brother 2 No Known Problems Father No Known Problems Mother Hypertension Other Aunt Hypertension Paternal Grandmother Relation Name Status Comments Brother 1 Alive Brother 2 Alive Father Alive Mother Alive Other Paternal Grandmother Social History Tobacco Use Types [...] Sign Reading Time Taken Comments Blood Pressure 177/124 09/04/2022 6:00 PM CDT Pulse 107 09/04/2022 6:00 PM CDT Temperature 36.1 C (97 F) 09/04/2022 7:04 AM CDT Respiratory Rate 16 09/04/2022 3:00 PM CDT Oxygen Saturation 100% 09/04/2022 6:00 PM CDT Inhaled Oxygen Concentration - - Weight 54.4 kg (120 lb) 09/04/2022 7:04 AM CDT Height 162.6 cm (5' 4) 09/04/2022 7:04 AM CDT Body Mass Index 20.6 09/04/2022 7:04 AM CDT Plan of Treatment Health Maintenance Due Date Last Done Comments Diabetes: Eye Exam 1995 Diabetes: Foot Exam 1995 TdaP Immunization 1995 Pneumococcal Immunization Combined (1 of 2 - PCV) 06/16/2014 Pap Smear 06/16/2016 Human Papillomavirus (HPV) Immunization (1 - 3-dose SCDM series) 06/16/2022 Diabetes: Nephropathy Screening 09/05/2023 09/04/2022, 08/25/2022, 07/15/2022, Additional history exists Diabetes: Hemoglobin A1c 09/10/202403/13/2 024, 03/07/2024, 02/09/2024, Additional history exists Influenza Immunization (#1) 12/18/202401/17, 02/16/2023, 02/14/2021, Additional history exists SARS-COV-2 Immunization (2 - 2024- season) 2024 01/24/2021 Respiratory Syncytial Virus (RSV) Immunization (Adult) (1 - 1-dose 75+ series) 06/16/2070 DTaP/Tdap/Td Immunization Discontinued 2000, 01/17/1998, 07/10/1996, Additional history exists Hepatitis C Virus (HCV) Screening Completed 08/10/2020 Hepatitis B Immunization Completed 024, 07/20/2023, 1995, Additional history exists Meningococcal Immunization (ACWY) Aged Out No longer eligible based on patient's age to complete this topic Rotavirus Immunization Aged Out No lo nger eligible based on patient's age to complete this topic Procedures Procedure Name Priority Date/Time Associated Diagnosis Comments CMP (COMPREHENSIVE METABOLIC PANEL) STAT 09/04/2022 8:08 AM CDT HEMOGLOBIN A1C W/ ESTIMATED GLUCOSE STAT 08/23/2022 9:39 PM CDT from Last 3 Months or Most Recently Relevant to Health Maintenance Results * (ABNORMAL) CMP (Comprehensive Metabolic Panel) (09/04/2022 8:08 AM CDT) SODIUM 139 136 - 144 mmol/L 09/04/2022 9:18 AM CDT [facility] POTASSIUM 4.7 3.5 - 5.1 mmol/L 09/04/2022 9:18 AM CDT [facility] CHLORIDE 96(L) 100 - 110 mmol/L 09/04/2022 9:18 AM CDT [facility] CO2, VENOUS 24 22 - 32 mmol/L 09/04/2022 9:18 AM CDT [facility] ANION GAP 23.7(H) 8.0 - 20.0 mmol/L 09/04/2022 9:18 AM CDT [facility] GLUCOSE 443(HH) 70 - 99 mg/dL 09/04/2022 9:18 AM CDT [facility] BUN 28(H) 6 - 20 mg/dL 09/04/2022 9:18 AM CDT [facility] CREATININE, BLOOD 2.94(H) 0.60 - 1.10 mg/dL 09/04/2022 9:18 AM CDT [facility] BUN/CREATININE RATIO 10(L) 12 - 20 ratio 09/04/2022 9:18 AM CDT [facility] TOTAL PROTEIN 8.9(H) 6.0 - 8.3 g/dL 09/04/2022 9:18 AM [facility] ALBUMIN 3.9 3.5 - 5.2 g/dL 09/04/2022 9:18 AM [facility] Comment: The colormetric methods used for the determination of Albumin may lead to falsely elevated test results in patients suffering from renal failure or insufficiency due to interference with other proteins. A/G RATIO 0.8(L) 1.0 - 2.0 09/04/2022 9:18 AM CDT [facility] CALCIUM 9.7 8.9 - 10.3 mg/dL 09/04/2022 9:18 AM [facility] T BILI 0.3 <=1.2 mg/dL 09/04/2022 9:18 AM [facility] SGOT (AST) 11 <=32 U/L 09/04/2022 9:18 AM [facility] SGPT (ALT) 18 <=41 U/L 09/04/2022 9:18 AM [facility] ALKALINE PHOSPHATASE 196(H) 35 - 105 U/L 09/04/2022 9:18 AM [facility] GFR, ESTIMATED 22(L) >=60 09/04/2022 9:18 AM [facility] Comment: Creatinine Clearance is the preferred criteria for selecting drug dose adjustments in renally impaired patients. The GFR is provided as additional pertinent clinical information. GFR is reported in mL/min/1.73 sq m. Calculation based on the Chronic Kidney Disease Epidemiology Collaboration (CKD- EPI) equation refit without adjustment for race. GFR, EST. 23(L) >=60 023 9:18 AM [facility] GFR, EST. NONAFRICAN 19(L) >=60 09/04/2022 9:18 AM [facility] Blood Venipuncture / Unknown 09/04/2022 8:08 AM CDT 09/04/2022 8:39 AM CDT us Giovanni Faith DO CHEMISTRY ORDERABLES Fi nal Result Performing Organization Address City/[facility]/ZIP Co de Phone Number [facility] [place] [address] * (ABNORMAL) Hemoglobin A1C (08/23/2022 9:39 PM CDT) HGB-A1C 9.0(H) 4.0 - 6.0 % 08/23/2022 10:04 PM CDT [facility] Est Average Glucose 211.6 mg/dL 08/23/2022 10:04 PM CDT [facility] Blood Venipuncture / Unknown 08/23/2022 9:39 PM CDT 08/23/2022 9:45 PM CDT Narrative [facility] - 08/23/2022 10:04 PM CDT HEMOGLOBIN A1C: DIABETIC PATIENTS: WELL-CONTROLLED: 6.2 - 7.0 INTERMEDIATE WELL-CONTROLLED: 7.0 - 9.0 POORLY-CONTROLLED: >9.0 us Celia Samuels APRN, PIERCING MACHINE OPERATOR CHEMISTRY ORDERABLES Final Result Performing Organization Address [facility] Co de Phone Number [facility] [place] [address] from Last 3 Months or Most Recently Relevant to Health Maintenance Insurance MEDICAID [place] Advance Directives * Full Code (Latest Code Status on File) Date Activated Date Inactivated Comments 08/24/2022 12:07 AM 08/25/2022 5:21 PM CPR-Full Deepa tment: FULL ARREST: Attempt Resuscitation/CPR wit intubation and mechanical ventilation. PRE-ARREST: Use entire range of life support measures to stabilize the patient. * Full Code Date Activated Date Inactivated Comments 07/11/2022 1:50 PM 07/12/2022 6:16 PM CPR-Full Donavan atment: FULL ARREST: Attempt Resuscitation/CPR wit intubation and mechanical ventilation. PRE-ARREST: Use entire range of life support measures to stabilize the patient. * Full Code Date Activated Date Inactivated Comments 07/03/2021 1:17 AM 07/06/2021 2:17 PM CPR-Full Donavan atment: FULL ARREST: Attempt Resuscitation/CPR wit intubation and mechanical ventilation. PRE-ARREST: Use entire range of life support measures to stabilize the patient. * Full Code Date Activated Date Inactivated Comments 06/16/2021 8:40 PM 06/19/2021 3:02 PM CPR-Full Deepa tment: FULL ARREST: Attempt Resuscitation/CPR wit intubation and mechanical ventilation. PRE-ARREST: Use entire range of life support measures to stabilize the patient. * Full Code Date Activated Date Inactivated Comments 06/03/2021 9:30 PM 06/08/2021 3:30 PM CPR-Full Donavan atment: FULL ARREST: Attempt Resuscitation/CPR wit intubation and mechanical ventilation. PRE-ARREST: Use entire range of life support measures to stabilize the patient. Care Teams Printer Slotter Operator Relationship Specialty Start Date End Date Eun Camacho PAC [address] [place] [address] PCP - General Family Medicine 06/28/22
--- OUTSIDE RECORDS SUMMARY | 2025-01-01 13:40 | XMS_ITS | Encounter Summary ---
Author Organization [facility] Healthcare Address [address] [place] [address] Care Team Providers Care Plug Cutting Machine Operator Name Role Phone Andrei Chaves MD PhD Unavailable [phone] Olivia Phelps MD Unavailable [phone] Edgardo Aldridge MD Primary Care Provider Odilon Tellez MD Unavailable [phone] Odilon Tellez MD Unavailable [phone] Ayaka Thomas MD Unavailable [phone] Yumi Jones NP Unavailable [phone] Mendel Bowling RN Unavailable [phone] Odilon Tellez MD Unavailable [phone] Mavis Barahona RN Unavailable [phone] Encounter Details Date Type Department Care Team (Late st Contact Info) Description 11/13/2024 Results Follow-Up [facility] Medical Group Family Medicine at [address] [place] [address] Edgardo Aldridge MD [address] [place] [address] [address] [place] [address] CT Chest WO Contrast Social History Tobacco Use Types Packs/Day Years Used Date Smoking Tobacco: Never Smokeless Tobacco: Never Alcohol Use Standard Drinks/Week Comments Not Currently 0 (1 standard drink = 0.6 oz pur e alcohol) [facility] Utilities Answer Date Recorded In the [...] often do you attend chur ch or religion services? Never 11/07/2024 Do you belong to any clubs o r organizations such as mu-ism groups, unions, fraternal or athletic groups, or [...] Date Recorded PHQ-2 Total Score 0 11/01/2024 [facility] [place] of Occupat ional Health - Occupational Stress [...] place to sleep or slept in a prison (including now)? No 08/30/2023 PHQ-9 Answer Date [...] any time in the past 12 m onths, were you homeless or living in a prison (including now)? No 11/07/2024 Personal Safety Answer Date Recorded Have you ever been in or are you currently in a harmful physical or emotional relationship or is someone making you feel afraid or unsafe? 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 Source: [facility]. 08/20/2024 CP-CHIEF PETROLEUM ENGINEER Comment:Added from external infection. Source: [facility]. Kleb pneumo [facility] 10/31/2024 10/31/2024 documented as of this encounter Care Teams Plug Cutting Machine Operator Relationship Specialty Start Date End Date Edgardo Aldridge MD [address] [facility] 2 or 4 [place] [address] PCP - General Family Medicine 04/02/23 Andrei Chaves MD PhD [address] [facility] [address] [place] [address] Referring Physician General Surgery 03/17/23 Olivia Phelps MD [address] [facility] 2 or 4 [place] [address] Consulting Physician Nephrology 03/17/23 Odilon Tellez MD [address] [facility] 2 or 4 [place] [address] Consulting Physician Nephrology 05/01/23 12/04/24 Odilon Tellez MD [address] [facility] 2 or 4 [place] [address] Referring Physician Nephrology 11/12/23 Ayaka Thomas MD [address] [facility] 2 or 4 [place] [address] Fellow Internal Medicine 12/17/23 Yumi Jones NP [address] [facility] [address] [place] [address] Nurse Practitioner Hospice and Palliative Medicine 08/16/23 Mendel Bowling RN [address] [facility] [address] [place] [address] Yarn Weight And Strength Tester 11/07/24 Odilon Tellez MD [address] [facility] [address] [place] [address] Consulting Physician Nephrology 12/05/24 Mavis Barahona, RN 45[address] [facility] [address]01 [place] [address] Market Superintendent 12/20/24 documented as of this encounter
--- OUTSIDE RECORDS SUMMARY | 2025-01-01 13:40 | XMS_ITS | Encounter Summary ---
Author Organization [facility] Healthcare Address [address] [place] [address] Care Team Providers Care Athletic Events Scorer Name Role Phone Andrei Chaves MD PhD Unavailable [phone] Olivia Phelps MD Unavailable [phone] Edgardo Aldridge MD Primary Care Provider [phone] Odilon Tellez MD Unavailable [phone] Odilon Tellez MD Unavailable [phone] Ayaka Thomas MD Unavailable [phone] Yumi Jones NP Unavailable [phone] Mendel Bowling RN Unavailable [phone] Odilon Tellez MD Unavailable [phone] Mavis Barahona RN Unavailable [phone] Encounter Details Date Type Department Care Team (Late st Contact Info) Description 11/22/2024 Results Follow-Up [facility] Medical Group Family Medicine at [address] [place] [address] Edgardo Aldridge MD [address] [place] [address] [address] [place] [address] XR Ankle Right 3+ Vw Social History Tobacco Use Types Packs/Day Years Used Date Smoking Tobacco: Never Smokeless Tobacco: Never Alcohol Use Standard Drinks/Week Comments Not Currently 0 (1 standard drink = 0.6 oz pur e alcohol) [facility] Utilities Answer Date Recorded In the [...] often do you attend chur ch or congregation services? Never 11/07/2024 Do you belong to any clubs o r organizations such as anabaptist groups, unions, fraternal or athletic groups, or [...] Date Recorded PHQ-2 Total Score 0 11/01/2024 [facility] of Occupat ional Health - Occupational Stress [...] place to sleep or slept in a half-way (including now)? No 08/30/2023 PHQ-9 Answer Date [...] any time in the past 12 m [facility], were you homeless or living in a half-way (including now)? No 11/07/2024 Personal Safety Answer Date Recorded Have you ever been in or are you currently in a harmful physical or emotional relationship or is someone making you feel afraid or unsafe? 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 Source: [facility]. 08/20/2024 CP-WARP DOFFER Comment:Added from external infection. Source: [facility]. Kleb pneumo [facility] 10/31/2024 10/31/2024 documented as of this encounter Care Teams Athletic Events Scorer Relationship Specialty Start Date End Date Edgardo Aldridge MD [address] [facility] 2 or 4 [place] [address] PCP - General Family Medicine 04/02/23 Andrei Chaves MD PhD [address] [facility] [address] [place] [address] Referring Physician General Surgery 03/17/23 Olivia Phelps MD [address] [facility] 2 or 4 [place] [address] Consulting Physician Nephrology 03/17/23 Odilon Tellez MD [address] [facility] 2 or 4 [place] [address] Consulting Physician Nephrology 05/01/23 12/04/24 Odilon Tellez MD [address] [facility] 2 or 4 [place] [address] Referring Physician Nephrology 11/12/23 Ayaka Thomas MD [address] [facility] 2 or 4 [place] [address] Fellow Internal Medicine 12/17/23 Yumi Jones NP [address] [facility] [address] [place] [address] Nurse Practitioner Hospice and Palliative Medicine 08/16/23 Mendel Bowling RN [address] [facility] [address] [place] [address] Mri Assistant 11/07/24 Odilon Tellez MD [address] [facility] [address] [place] [address] Consulting Physician Nephrology 12/05/24 Mavis Barahona, RN [address] [facility] [address] [place] [address] Back End Engineer 12/20/24 documented as of this encounter
--- OUTSIDE RECORDS SUMMARY | 2025-01-01 13:40 | XMS_ITS | Encounter Summary ---
Author Organization [facility] Facility Care Team Providers Care Business Dean Name Role Phone Unknown, Notinfile Primary Care Provider Unavail able Lay Villalta MD Primary Care Provider [phone] Tremayne Kebede MD Unavailable [phone] Georgia Mcbride SURVEYOR INSTRUMENT ASSISTANT Unavailable [phone] Miscellaneous, Not In File Unavailable Unava ilable Eun Camacho Primary Care Provider + Cony Pemberton CORONER TECHNICIAN Unavailable [phone] Antonette Vernon RN Unavailable [phone] Andrei Chaves MD PhD Unavailable [phone] Olivia Phelps MD Unavailable [phone] Edgardo Aldridge MD Primary Care Provider [phone] Odilon Tellez MD Unavailable [phone] Miscellaneous, Not In File Unavailable Unava ilable Ct Boggs CORONER TECHNICIAN Unavailable [phone] Odilon Tellez MD Unavailable [phone] Tracey Felix RN Unavailable [phone] Ayaka Thomas MD Unavailable [phone] Yumi Jones NP Unavailable [phone] Ruthy Leahy CORONER TECHNICIAN Unavailable Unavaila Feli Dominguez RN Unavailable Mendel Bowling RN Unavailable [phone] Leslie Baptiste [facility] Unavailable Mendel Bowling RN Unavailable [phone] Odilon Tellez MD Unavailable [phone] Mavis Barahona RN Unavailable [phone] Encounter Details Date Type Department Care Team (Latest Contact Info) Description 02/01/2017 Orders Only [facility]INCONV Provider, MD Sotero [address] [place] [address] Social History Tobacco Use Types Packs/Day Years Used Date Smoking Tobacco: Never Comments Unknown Sex and Gender Information Value Date Recorded Sex Assigned at Not on file 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 Gender Identity Not on file Sexual Orientation Not on file documented as of this encounter Plan of Treatment Not on file documented as of this encounter Procedures Procedure Name Priority Date/Time Associated Diagnosis Comments SCAN - LABS 02/01/2017 12:00 AM CDT documented in this encounter Results * SCAN - LABS (02/01/2017 12:00 AM CDT) Narrative 02/01/2017 12:00 AM CDT Ordered by an unspecified [...] CDT COVID19 02/02/2020 02/02/2020 02/19/2020 3:05 AM OXYGEN EQUIPMENT PREPARER COVID: Recovered Comment:Added based on recent COVID [...] COVID: Suspected 06/15/2023 06/15/2023 06/15/2023 5:53 PM OXYGEN EQUIPMENT PREPARER C. difficile suspected 06/24/2023 06/24/202306/26 6:03 AM CDT COVID: Suspected 06/27/2023 06/27/2023 06/27/2023 7:07 PM CDT COVID: Suspected 07/10/2023 07/10/2023 07/10/2023 6:50 AM CDT COVID: Suspected 07/13/2023 07/13/2023 07/13/2023 9:45 PM CDT MRSA Comment:MRSA Isolation Custodial 06/21/24 10/23/2023 02/09/2024 06/21/2024 6:[address] C. 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 Source: [facility]. 08/20/2024 Carbapenemase, Unspecified Comment:Added from external infection. Source: [facility]. Kleb pneumo [facility] 09/23/2024 10/31/2024 3:07 PM C DT CP-SET OFF PRESS OPERATOR Comment:Added from external infection. Source: [facility]. Kleb pneumo [facility] 10/31/2024 10/31/2024 documented as of this encounter Care Teams Business Dean Relationship Specialty Start Date End Date Unknown, Notinfile PCP - General 12/28/16 08/23/18 Lay Villalta MD PCP - General Family Medicine 08/24/18 07/17/21 Eun Camacho PA PCP - General Family Medicine 07/18/21 03/08/23 Edgardo Aldridge MD [address] [facility] 2 or 4 [place] [address] PCP - General Family Medicine 04/02/23 Tremayne Kebede MD Consulting Physician Gastroenterology 02/05/20 3 Georgia Mcbride LPN [address] [facility] [address] [place] [address] ACO Care Bad Work Gatherer 11/28/20 12/19/20 Miscellaneous, Not In File 07/17/21 03/16/23 Cony Pemberton, CORONER TECHNICIAN 0[address] [facility] Mailstop [phone] [place] [address] SHOP Outpatient Package Car Driver 12/07/22 12/07/22 Antonette Vernon, KADY [address] [place] [address] SHOP Outpatient Package Car Driver 12/08/22 01/05/23 Andrei Chaves MD PhD [address] [facility] [address] [place] [address] Referring Physician General Surgery 03/17/23 Olivia Phelps MD [address] [employer] [facility] [address] [place], [place] [address] Consulting Physician Nephrology 03/17/23 Odilon Tellez MD 9515 [facility] [address] or 4 [place] [address] Consulting Physician Nephrology 05/01/23 12/04/24 Miscellaneous, Not In File 07/08/23 01/24/24 Ct Boggs, [facility] 45[address] [facility] ([facility] Mailstop [phone] [place] [address] SHOP Outpatient Package Car Driver 07/09/23 08/05/23 Odilon Tellez MD 9515 [facility] [address] or 4 [place] [address] Referring Physician Nephrology 11/12/23 Tracey Felix, RN [address] [place] [address] Fruit Shipper 11/12/23 11/17/23 Ayaka Thomas MD [address] [place] [address] Fellow Internal Medicine 12/17/23 Yumi Jones NP [address] [facility] [address] [place] [address] Nurse Practitioner Hospice and Palliative Medicine 08/16/23 Ruthy Leahy LCSW Portable Sawyer 12/31/23 02/22/24 Feli Boggs RN [address] [place] [address] [address] [place] [address] Automobile Body Repairer Helper 12/31/23 01/02/24 Mendel Bowling, KADY [address] [place] [address] [address] [place] [address] Automobile Body Repairer Helper 01/03/24 03/23/24 Leslie Baptiste [address] [place] [address] Pharmacist Pharmacy 01/13/24 02/03/24 Mendel Bowling, KADY [address] [place] [address] [address] [place] [address] Automobile Body Repairer Helper 11/07/24 Odilon Tellez MD [address] [facility] [address] [place] [address] Consulting Physician Nephrology 12/05/24 Mavis Barahona, RN 45[address] [facility] 3401 [place] [address] Fruit Shipper 12/20/24 documented as of this encounter
--- OUTSIDE RECORDS SUMMARY | 2025-01-01 13:40 | XMS_ITS | Encounter Summary ---
Author Organization [facility] Healthcare Address [address] [place] [address] Care Team Providers Care Program Management Professional Name Role Phone Andrei Chaves MD PhD Unavailable [phone] Olivia Phelps MD Unavailable [phone] Edgardo Aldridge MD Primary Care Provider [phone] Odilon Tellez MD Unavailable [phone] Ayaka Thomas MD Unavailable [phone] Yumi Jones NP Unavailable [phone] Mendel Bowling RN Unavailable [phone] Odilon Tellez MD Unavailable [phone] Mavis Barahona RN Unavailable [phone] Encounter Details Date Type Department Care Team (Late st Contact Info) Description 12/29/2024 Results Follow-Up [facility] Medical Group Family Medicine at [address] [place] [address] Edgardo Aldridge MD [address] [place] [address] [address] [place] [address] SCAN - RADIOLOGY/IMAGING Social History Tobacco Use Types Packs/Day Years Used Date Smoking Tobacco: Never Smokeless Tobacco: Never Alcohol Use Standard Drinks/Week Comments Not Currently 0 (1 standard drink = 0.6 oz pur e alcohol) [facility] Utilities Answer Date Recorded In the [...] often do you attend chur ch or faith services? Never 11/07/2024 Do you belong to [...] place to sleep or slept in a fpc (including now)? No 08/30/2023 PHQ-9 Answer Date [...] any time in the past 12 m [facility], were you homeless or living in a fpc (including now)? 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 Source: [facility]. 08/20/2024 CP-FREIGHT CAR CLEANER DELTA SYSTEM Comment:Added from external infection. Source: [facility]. Kleb pneumo [facility] 10/31/2024 10/31/2024 documented as of this encounter Care Teams Program Management Professional Relationship Specialty Start Date End Date Edgardo Aldridge MD [address] [facility] 2 or 4 [place] [address] PCP - General Family Medicine 04/02/23 Andrei Chaves MD PhD [address] [place] [address] Referring Physician General Surgery 03/17/23 Olivia Phelps MD [address] [facility] 2 or 4 [place] [address] Consulting Physician Nephrology 03/17/23 Odilon Tellez MD [address] [facility] [address] 4 [place] [address] Referring Physician Nephrology 11/12/23 Ayaka Thomas MD [address] [facility] 2 or 4 [place] [address] Fellow Internal Medicine 12/17/23 Yumi Jones NP [address] [facility] [address] [place] [address] Nurse Practitioner Hospice and Palliative Medicine 08/16/23 Mendel Bowling RN [address] [facility] [address] [place] [address] Pig Furnace Operator 11/07/24 Odilon Tellez MD [address] [facility] [address] [place] [address] Consulting Physician Nephrology 12/05/24 Mavis Barahona, RN 4590 [facility] [address] [place] [address] Echometer Engineer 12/20/24 documented as of this encounter
--- OUTSIDE RECORDS SUMMARY | 2025-01-01 13:40 | XMS_ITS | Encounter Summary ---
Author Organization [facility] Address [address] [place] [address] Phone Care Team Providers Care Cdc Associate Name Role Phone Andrei Chaves MD PhD Unavailable [phone] Olivia Phelps MD Unavailable [phone] Edgardo Aldridge MD Primary Care Provider [phone] Odilon Tellez MD Unavailable [phone] Ayaka Thomas MD Unavailable [phone] Yumi Jones NP Unavailable [phone] Mendel Bowling RN Unavailable [phone] Odilon Tellez MD Unavailable [phone] Mavis Barahona RN Unavailable [phone] Encounter Details Date Type Department Care Team (Late st Contact Info) Description 12/26/2024 Results Follow-Up [facility] Medicine Gastroenterology [address] [facility] 12th [place] [address] [place] [address] Young Vasquez MD [address] [facility] [address] [place] [address] CT Abdomen and Pelvis Enterography W Contrast Social History Tobacco Use Types Packs/Day Years Used Date Smoking Tobacco: Never Smokeless Tobacco: Never Alcohol Use Standard Drinks/Week Comments Not Currently 0 (1 standard drink = 0.6 oz pur e alcohol) [facility] Utilities Answer Date Recorded In the [...] often do you attend chur ch or christianity services? Never 11/07/2024 Do you belong to any clubs o r organizations such as buddhism groups, unions, fraternal or athletic groups, or [...] Date Recorded PHQ-2 Total Score 0 11/01/2024 [facility] of Occupat ional [facility] - Occupational Stress Questionnaire Answer Date Recorded [...] place to sleep or slept in a detention (including now)? No 08/30/2023 PHQ-9 Answer Date [...] time in the past 12 m [facility], were you homeless or living in a detention (including now)? 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 No evidence of Crohn's disease documented in this encounter Plan of Treatment Not on file documented as of this encounter Goals Goal Patient Goal Type Associated Problems Recent Progress Patient-Stated? Author JACKELYN General Goal - Patient schedules and keeps appointments with all recommended providers ACO Care Management On track(2024 9:00 AM CDT) Mendel Jerez RN Note: Problem: Potential for medical complications [...] Time 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 Source: [facility]. 08/20/2024 CP-TRACK CAR OPERATOR Comment:Added from external infection. Source: [facility]. Kleb pneumo [facility] 10/31/2024 10/31/2024 documented as of this encounter Care Teams Cdc Associate Relationship Specialty Start Date End Date Edgardo Aldridge MD 95[address] [facility] [address] or 4 [place] [address] PCP - General Family Medicine 04/02/23 Andrei Chaves MD PhD [address] [facility] [address] [place] [address] Referring Physician General Surgery 03/17/23 Olivia Phelps MD 9515 [facility] [address] or 4 [place] [address] Consulting Physician Nephrology 03/17/23 Odilon Tellez MD [address] [facility] 2 or 4 [place] [address] Referring Physician Nephrology 11/12/23 Ayaka Thomas MD [address] [facility] [address] or 4 [place] [address] Fellow Internal Medicine 12/17/23 Yumi Jones NP [address] [facility] [address] [place] [address] Nurse Practitioner Hospice and Palliative Medicine 08/16/23 eMndel Bowling RN [address] [place] [address] [address] [place] [address] Stem Teacher 11/07/24 Odilon Tellez MD [address] [facility] [address] [place] [address] Consulting Physician Nephrology 12/05/24 Mavis Barahona, RN 45[address] [facility] [address] [place] [address] Sealing And Canceling Machine Operator 12/20/24 documented as of this encounter
[2025-01-01] MEDS: CENTRAL LINE FLUSH 10 ML IV PUSH ×2 (14:00→21:05)
--- NOTE | 2025-01-01 14:00 | ED.GENADULT ---
HPI - General Adult General Chief complaint: Chest Pain Stated complaint: chest pain Time Seen by Provider: 01/01/25 12:20 History of Present Illness HPI narrative: Lynette Bellamy is a 29-year-old female who presents today with past medical history end-stage renal disease receives her dialysis Wednesday she is due tomorrow, also reports of having a history of severe gastroparesis cyclic vomiting syndrome Related Data Home Medications ?Medication ?Instructions ?Recorded ?Confirmed ?Last Taken ?Type insulin glargine 100 unit/mL (3 15 unit subcut HS 06/02/22 01/01/25 12/31/24 History mL) subcutaneous pen (Lantus Solostar U-100 Insulin) insulin lispro 100 unit/mL 1 sliding scale dose subcut PRN 06/02/22 01/01/25 01/01/25 History subcutaneous pen losartan 25 mg tablet 25 mg PO DAILY 06/02/22 01/01/25 12/31/24 History ondansetron 4 mg disintegrating 4 mg PO Q4H PRN Nausea And Vomiting 06/02/22 01/01/25 Unknown History tablet amlodipine 10 mg tablet 10 mg PO DAILY 01/01/25 01/01/25 Unknown History carvedilol 12.5 mg tablet 12.5 mg PO Q12H 01/01/25 01/01/25 12/31/24 History diphenhydramine HCl 25 mg capsule 25 mg PO Q8H PRN nausea and 01/01/25 01/01/25 Unknown History (Banophen) vomiting escitalopram oxalate 10 mg tablet 10 mg PO DAILY 01/01/25 01/01/25 12/31/24 History gabapentin 100 mg capsule 100 mg PO TID 01/01/25 01/01/25 01/01/25 History glucagon 0.5 mg/0.1 mL 0.5 mg subcut PRN PRN hypoglycemia 01/01/25 01/01/25 Unknown History subcutaneous auto-injector (Gvoke HypoPen 2-Pack) metoprolol succinate 200 mg 200 mg PO DAILY 01/01/25 01/01/25 Unknown History tablet,extended release 24 hr Allergies Allergy/AdvReac Type Severity Reaction Status Date / Time metoclopramide (From Reglan) Allergy Intermediate Muscle Verified 01/01/25 16:47 Spasms hydralazine Allergy Hives Verified 01/01/25 16:47 Review of Systems Review of Systems: All systems reviewed & are unremarkable except as noted in HPI and below PMFSH Past Medical History Medical History Diabetic gastroparesis Port-A-Cath in place Type 1 diabetes Depression Surgical History Surgical History History of cholecystectomy Family History Family History Other Family history of cardiovascular disease Social History Social History Smoking status: Never smoker Alcohol intake: never Substance use: never Lack of Transportation: No Lack of Food: Never True Current Housing: I Have Housing Concerned About Future Housing: No Difficulty Paying Gas/Electric Bills: No Difficulty Paying for Meds: No Currently Unemployed: YES Education: High School Diploma/GED Difficulty w/ Childcare or Family Care: No Gender identity (if verbalized by the patient): Female Spiritual care concerns: No Exam Narrative: GENERAL: no acute distress, but appears to not feel well HEAD: Normocephalic, atraumatic. EYES: PERRLA and EOMI. ENT: Nares clear, no rhinorrhea or epistaxis. Mucous membranes moist. Oropharynx without tonsillar hypertrophy exudate or other lesions. NECK: Supple. No adenopathy or masses. No carotid bruits or JVD CHEST: Clear to auscultation. No respiratory distress. No wheezes rales or rhonchi HEART: Regular rate and rhythm. No murmur heard. Normal peripheral pulses. ABDOMEN: Soft,nondistended, normal active bowel sounds. EXTREMITIES: Normal range of motion. No edema. SKIN: Warm, dry, no rash. NEURO: No focal deficits. Alert and oriented x3. PSYCH: Normal mood and affect. Course Vital Signs Vital signs: Vital Signs Temperature 36.8 C 01/01/25 11:47 Pulse Rate 101 H 01/01/25 11:47 Respiratory Rate 16 01/01/25 11:47 Blood Pressure 197/112 H 01/01/25 11:47 Pulse Oximetry 100 01/01/25 11:47 Oxygen Delivery Room Air 01/01/25 11:47 Temperature 36.8 C 01/01/25 11:47 Pulse Rate 99 01/01/25 16:05 Respiratory Rate 24 H 01/01/25 16:05 Blood Pressure 197/107 H 01/01/25 16:05 Pulse Oximetry 97 01/01/25 16:05 Oxygen Delivery Room Air 01/01/25 11:55 Medical Decision Making MDM Narrative Medical decision making narrative: 29-year-old female with past medical history of type 1 diabetes, hemodialysis patient her received dialysis Wednesday and is due tomorrow, history of cyclic vomiting, gastroparesis. She presents today with complaints of having increased nausea vomiting that started a couple days ago. She states that she has not been able to keep anything down for the past day or so. She states this feels just like her usual cyclic vomiting any gastroparesis and typically if she is given medications she gets better he can go home. Based on her history I am concerned for DKA, dehydration, cyclic vomiting Labs resulted showing concern for DKA with an elevated anion gap, low bicarb, blood glucose in 400s so we added on that a beta hydroxybutyrate that is elevated at 5.1 with a VBG with a pH is 7.2 With patient being on hemodialysis and having DKA consulted with screen making technician , keira regarding treatment recommend giving 1 L of normal saline and started on insulin drip and admit to the ICU here. This was ordered and I discussed admission with hospitalist Celia who accepts admission to the ICU as well. I updated patient the concerns and need for admission for DKA she is agreeable to this and states that she has been through this several times and is aware. Medical Records Medical records reviewed: Yes I reviewed the external patient's medical records. Vital Signs Vital Signs: Vital Signs Temperature 36.8 C 01/01/25 11:47 Pulse Rate 101 H 01/01/25 11:47 Respiratory Rate 16 01/01/25 11:47 Blood Pressure 197/112 H 01/01/25 11:47 Pulse Oximetry 100 01/01/25 11:47 Oxygen Delivery Room Air 01/01/25 11:47 Temperature 36.8 C 01/01/25 11:47 Pulse Rate 99 01/01/25 16:05 Respiratory Rate 24 H 01/01/25 16:05 Blood Pressure 197/107 H 01/01/25 16:05 Pulse Oximetry 97 01/01/25 16:05 Oxygen Delivery Room Air 01/01/25 11:55 Vitals reviewed Lab Data Lab results reviewed: Yes I reviewed the patient's lab results. 01/01/25 13:06 01/01/25 15:47 Labs: Lab Results 01/01/25 01/01/25 01/01/25 Range/Units 13:06 14:04 14:33 WBC 5.6 (4.5-10.0) K/mm3 RBC 4.04 L (4.2-5.4) M/mm3 Hgb 11.1 L (12.0-15.0) g/dL Hct 35.4 L (37.0-47.0) % MCV 87.6 (80-100) fl MCH 27.5 (26-34) pg MCHC 31.4 L (32-36) g/dl RDW 14.0 (11.5-14.5) % Plt Count 195 (150-375) k/mm3 MPV 11.3 H (7.4-10.4) fl Immature Gran % (Auto) 0.5 (0-0.5) % Neut % (Auto) 72.0 (45.5-73.1) % Lymph % (Auto) 19.8 (18.3-44.2) % Eaton % (Auto) 5.5 (2.6-8.5) % Eos % (Auto) 2.0 (0-4.4) % Baso % (Auto) 0.2 (0.2-1.2) % Lymph # (Auto) 1.11 (0.9-3.2) K/mm3 Eaton # (Auto) 0.3 (0.1-0.6) K/mm3 Eos # (Auto) 0.1 (0-0.3) K/mm3 Baso # (Auto) 0.0 (0.0-0.1) K/mm3 Abs Immat Gran (auto) 0.03 (0.00-0.031) K/mm3 Absolute Neuts (auto) 4.0 (1.3-6.7) K/mm3 Absolute Nucleated RBC 0.000 (0.0-0.012) K/mm3 Nucleated RBC % 0.0 (0.0-0.2) % PT 15.3 H (11.1-14.7) Seconds INR 1.2 APTT 28.5 (22.3-36.8) Seconds Sodium 132 L (137-145) mmol/L Potassium 4.5 (3.4-5.0) mmol/L Chloride 97 L (98-107) mmol/L Carbon Dioxide 17 L (22-30) mmol/L Anion Gap 18 H (4-12) mmol/L BUN 24 H D (7-17) mg/dL Creatinine 7.71 H (0.7-1.0) mg/dL Estim Creat Clear Calc 9 ml/min Estimated GFR 6 L (59 - ) Glucose 433 H (65-110) mg/dL Lactic Acid 1.0 (0.7-2.0) mmol/L Calcium 7.2 L (8.4-10.2) mg/dL Total Bilirubin 0.5 (0.2-1.3) mg/dL AST 22 (14-36) U/L ALT 22 (6-35) U/L Alkaline Phosphatase 179 H (38-126) U/L Troponin I < 0.012 (0.000-0.034) ng/mL Total Protein 7.6 (6.3-8.2) g/dL Albumin 4.0 (3.5-5.1) g/dL Lipase 65 (23-300) U/L Beta-Hydroxybutyrate/Acetoacetate 5.16 H (0.02-0.27) mmol/L ABG Data ABG results: 01/01/25 14:33 VBG pH 7.272 L VBG pCO2 35.6 L VBG pO2 46.3 H VBG HCO3 16.1 L O2 Delivery Device Room air O2 Liters/Min Not Reportable FiO2 21 Imaging Data Radiologist's impression: Impressions Chest X-Ray 01/01/25 12:30 Impression: No acute cardiopulmonary abnormality. Discharge Plan Discharge Clinical Impression: End stage renal disease on dialysis Type 1 diabetes Qualifiers: Diabetes mellitus complication status: with hyperglycemia Qualified Code(s): E10.65 - Type 1 diabetes mellitus with hyperglycemia DKA (diabetic ketoacidosis) Qualifiers: Diabetes mellitus type: type 1 Diabetes mellitus complication detail: without coma Qualified Code(s): E10.10 - Type 1 diabetes mellitus with ketoacidosis without coma Nausea & vomiting Qualifiers: Vomiting type: unspecified Qualified Code(s): R11.2 - Nausea with vomiting, unspecified Patient Disposition: Still a Patient Condition: Serious Time of Disposition: 18:32
[2025-01-01 14:40] LABS: INR 1.2; Prothrombin Time 15.3 Seconds (11.1-14.7)
--- NOTE | 2025-01-01 14:40 | PC.NURSE ---
No episodes of vomiting since medication administration. Pt. reports improvement in nausea and pain. Now rates pain 7/10.
[2025-01-01 14:41] LABS: Partial Thromboplastin Time 28.5 Seconds (22.3-36.8)
[2025-01-01 14:42] LABS: Fractional Inspired Oxygen 21 %; HCO3 VBG 16.1 mEq/l (24.0-30.0); PCO2 VBG 35.6 mmHg (42.0-48.0); PO2 VBG 46.3 mmHg (35.0-45.0); pH VBG 7.272 (7.300-7.400)
[2025-01-01 15:07] LABS: Beta-Hydroxybutyrate/Acetoace. 5.16 mmol/L (0.02-0.27)
--- NOTE | 2025-01-01 15:38 | P.HP_ITS ---
H&P: HPI History of Present Illness Date/Time: 01/01/25 15:38 Chief Complaint: Cyclical vomiting and malaise Narrative: 29-year-old female with type 1 diabetes, end-stage renal disease on dialysis presents the hospital with cyclical vomiting. Patient also complains of chest pain belly pain. Patient states that this is not her usual pain from cyclical vomiting. She states that she was surprised when she was told she was in DKA. Chest pain is n not reproducible. She describes abdominal pain as stabbing sharp like and constant. Patient states that she did have diarrhea few days ago but also did a bowel prep for at colonoscopy. She denies fever chills. Lab work in the ED shows hemoglobin 11.1 which is baseline, VBG 7.27, pCO2 35, PO2 46, bicarb 16, on room air sodium 132, chloride 97, carbon dioxide 17, anion gap 18, BUN 24, creatinine 7.72 glucose 433, calcium 7.2, beta hydroxybutyrate 5.6, chest x-ray with no acute findings. UA pending. EKG shows sinus rhythm with prolonged QT interval. Insulin drip ordered with antiemetics, and 1 L normal saline. Patient will be admitted to the ICU for DKA. Review of Systems Review of Systems: 12 systems were reviewed and are negativ e except for as per HPI. [facility] Past Medical History Medical History Diabetic gastroparesis Port-A-Cath in place Type 1 diabetes Depression Surgical History Surgical History History of cholecystectomy Family History Family History Other Family history of cardiovascular disease Social History Social History Smoking status: Never smoker Alcohol intake: never Substance use: never Lack of Transportation: No Lack of Food: Never True Current Housing: I Have Housing Concerned About Future Housing: No Difficulty Paying Gas/Electric Bills: No Difficulty Paying for Meds: No Currently Unemployed: YES Education: High School Diploma/GED Difficulty w/ Childcare or Family Care: No Gender identity (if verbalized by the patient): Female Spiritual care concerns: No Meds Home Medications and Allergies Home Medications ?Medication ?Instructions ?Recorded ?Confirmed ?Type insulin glargine 100 unit/mL (3 15 unit subcut HS 05/2001/01/25 History mL) subcutaneous pen (Lantus Solostar U-100 Insulin) insulin lispro 100 unit/mL 1 sliding scale dose subcut PRN 06/02/22 01/01/25 History subcutaneous pen losartan 25 mg tablet 25 mg PO DAILY 06/02/2212/18 History ondansetron 4 mg disintegrating 4 mg PO Q4H PRN Nausea And Vomiting 06/02/22 01/01/25 History tablet amlodipine 10 mg tablet 10 mg PO DAILY 01/01/2512/18 History carvedilol 12.5 mg tablet 12.5 mg PO Q12H 01/01/25 History diphenhydramine HCl 25 mg capsule 25 mg PO Q8H PRN [place] and 01/01/25 01/01/25 History (Banophen) vomiting escitalopram oxalate 10 mg tablet 10 mg PO DAILY 01/0101/01/25 History gabapentin 100 mg capsule 100 mg PO TID 01/01/2501/01 History glucagon 0.5 mg/0.1 mL 0.5 mg subcut PRN PRN hypogl ycemia 01/01/25 01/01/25 History subcutaneous auto-injector (Gvoke HypoPen 2-Pack) metoprolol succinate 200 mg 200 mg PO DAILY 01/01/25 0 01/01/25 History tablet,extended release 24 hr Allergies Allergy/AdvReac Type Severity Reaction Status Date / Time metoclopramide (From Reglan) Allergy Intermediate Muscle Verified 01/01/25 16:47 Spasms hydralazine Allergy Hives Verified 01/01/25 16:47 Vital Signs Vital Signs - 24 hr 01/01/25 11:47 01/01/25 11:55 01/01/25 13:31 Temperature 98.3 F Pulse Rate 101 H 109 H Respiratory Rate 16 16 Blood Pressure 197/112 H 195/115 H Pulse Oximetry 100 100 Oxygen Delivery Room Air Room Air 01/01/25 13:59 01/01/25 14:40 Temperature Pulse Rate 97 96 Respiratory Rate 14 16 Blood Pressure 176/98 H 164/101 H Pulse Oximetry 100 98 Oxygen Delivery Exam Narrative: General: well appearing, appears stated age. HEENT: normocephalic, atraumatic. Mucous membranes moist. EOMI, PERRLA, bilateral sclera anicteric, no conjunctival injection. Neck supple without JVD, lymphadenopathy, or bruit. Respiratory: clear to ascultation bilaterally. No rales/rhonic/wheezes. Cardiovascular: Regular rate and rhythm, normal S1-S2 upon ascultation. No murmurs, rubs, or clicks. PMI is nondisplaced, capillary refill less than 3 second. Abdomen: Soft, round, no pulsatile masses, nondistended and nontender. No rebound, no guarding. No CVA tenderness, no hepatosplenomegaly. Bowel sounds present to all four quadrants. No high pitch or tinkling sounds, resonant to percussion. Extremities: No cyanosis, clubbing, or edema present. Pulses are palpable 2/2. Active ROM to all four extremities. Neuro: Alert and orientated x 4. PERRLA. Cranial nerves 2-12 intact without focal deficit. Skin: Warm, dry, and intact, without rash, erythema, or lesion. Psych: pleasant, cooperative, normal speech, normal affect, no hallucinations, no dysarthia H&P: Results Labs Labs: Short CBC 01/01/25 Range/Units 13:06 WBC 5.6 (4.5-10.0) K/mm3 Hgb 11.1 L (12.0-15.0) g/dL Hct 35.4 L (37.0-47.0) % Plt Count 195 (150-375) k/mm3 BMP 01/01/25 13:06 Sodium 132 L Potassium 4.5 Chloride 97 L Carbon Dioxide 17 L BUN 24 H D Creatinine 7.71 H Glucose 433 H Calcium 7.2 L Cardiac Enzymes 01/01/25 Range/Units 13:06 Troponin I < 0.012 (0.000-0.034) ng/mL Liver Function 01/01/25 Range/Units 13:06 Total Bilirubin 0.5 (0.2-1.3) mg/dL AST 22 (14-36) U/L ALT 22 (6-35) U/L Alkaline Phosphatase 179 H (38-126) U/L Albumin 4.0 (3.5-5.1) g/dL Assessment and Plan Assessment and plan (1) DKA (diabetic ketoacidosis): Code(s): E11.10 - Type 2 diabetes mellitus with ketoacidosis without coma Status: Acute Assessment and Plan: Secondary to cyclical vomiting in a type 1 diabetic DKA protocol ICU admission Due to patient being a hemodialysis patient not being able to receive dialysis tomorrow will do 1 L bolus and IVF at 75 mL monitor for fluid overload BMP Q 4 (2) Diabetic gastroparesis: Code(s): E11.43 - Type 2 diabetes mellitus with diabetic autonomic (poly)neuropathy; K31.84 - Gastroparesis Status: Acute Assessment and Plan: Unable to do schedule Reglan at this time due to prolonged QTC Compazine and Benadryl (3) Type 1 diabetes: Code(s): E10.9 - Type 1 diabetes mellitus without complications Status: Acute Assessment and Plan: Currently holding home meds (4) End stage renal disease on dialysis: Code(s): N18.6 - End stage renal disease; Z99.2 - Dependence on renal dialysis Status: Acute Assessment and Plan: Nephrology consulted Hemodialysis on Wednesday, Wednesday (5) Hypocalcemia: Code(s): E83.51 - Hypocalcemia Status: Acute Assessment and Plan: 2 g calcium BMP q.4 (6) Acute abdominal pain: Code(s): R10.9 - Unspecified abdominal pain Status: Acute Assessment and Plan: CT chest abdomen and pelvis pending Quality VTE Prophylaxis VTE prophylaxis: mechanical ordered Hospitalist MIPS Advance Care Plan I have confirmed that the patient's Advanced Care Plan is present, code status is documented, or surrogate decision maker is listed in patient medical record.: Yes Medication Reconciliation I have utilized all available resources to obtain, update and review the patients current medications (includes all prescriptions, OTC, herbals, cannabis, and nutritional supplements).: Yes
--- OUTSIDE RECORDS SUMMARY | 2025-01-01 15:39 | XMS_ITS | Encounter Summary ---
Author Organization [facility] Facility Care Team Providers Care Athletic Events Scorer Name Role Phone Unknown, Notinfile Primary Care Provider Unavail able Lay Villalta MD Primary Care Provider [phone] Tremayne Kebede MD Unavailable [phone] Georgia Mcbride [employer] BLOCKS PRESS OPERATOR Unavailable [phone] Miscellaneous, Not In File Unavailable Unava ilable Eun Camacho Primary Care Provider + Cony Pemberton CHESS INSTRUCTOR Unavailable [phone] Antonette Vernon RN Unavailable [phone] Andrei Chaves MD PhD Unavailable [phone] Olivia Phelps MD Unavailable [phone] Edgardo Aldridge MD Primary Care Provider [phone] Odilon Tellez MD Unavailable [phone] Miscellaneous, Not In File Unavailable Unava ilable Ct Boggs CHESS INSTRUCTOR Unavailable [phone] Odilon Tellez MD Unavailable [phone] Tracey Felix RN Unavailable [phone] Ayaka Thomas MD Unavailable [phone] Yumi Jones NP Unavailable [phone] Ruthy Leahy CHESS INSTRUCTOR Unavailable Unavaila Feli Dominguez RN Unavailable [phone] Mendel Bowling RN Unavailable [phone] Leslie Baptiste [facility] Unavailable [phone] Mendel Bowling RN Unavailable [phone] Odilon Tellez MD Unavailable [phone] Mavis Barahona RN Unavailable [phone] Encounter Details Date Type Department Care Team (Latest Contact Info) Description 09/13/2016 Orders Only [facility] CLINCONV Provider, MD [facility] [address] [place] [id number] Social History Tobacco Use Types Packs/Day Years Used Date Smoking Tobacco: Never Comments Unknown Sex and Gender Information Value Date Recorded Sex Assigned at Not on file Legal Sex Female 9:16 AM ACCOUNTS PAYABLE OR RECEIVABLE CLERK Gender Identity Not on file Sexual Orientation [...] CDT COVID19 02/02/2020 02/02/2020 02/19/2020 3:05 AM ACCOUNTS PAYABLE OR RECEIVABLE CLERK COVID: Recovered Comment:Added based on recent COVID [...] COVID: Suspected 06/15/2023 06/15/2023 06/15/2023 5:53 PM ACCOUNTS PAYABLE OR RECEIVABLE CLERK C. difficile suspected 06/24/2023 06/24/202306/26 6:03 AM CDT COVID: Suspected 06/27/2023 06/27/2023 06/27/2023 7:07 PM CDT COVID: Suspected 07/10/2023 07/10/2023 07/10/2023 6:50 AM CDT COVID: Suspected 07/13/2023 07/13/2023 07/13/2023 9:45 PM CDT MRSA Comment:MRSA Isolation Half-Way 06/21/24 10/23/2023 02/09/2024 06/21/2024 6:[address] C. 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 Source: [facility]. 08/20/2024 Carbapenemase, Unspecified Comment:Added from external infection. Source: [facility]. Kleb pneumo KPC 09/23/2024 10/31/2024 3:07 PM C DT CP-TRAY CASTING MACHINE OPERATOR Comment:Added from external infection. Source: [facility]. Kleb pneumo KPC 10/31/2024 10/31/2024 documented as of this encounter Care Teams Athletic Events Scorer Relationship Specialty Start Date End Date Unknown, Notinfile PCP - General 12/28/16 08/23/18 Lay Villalta MD PCP - General Family Medicine 08/24/18 07/17/21 Eun Camacho PA PCP - General Family Medicine 07/18/21 03/08/23 Edgardo Aldridge MD [address] [facility] [address] [place] [address] PCP - General Family Medicine 04/02/23 Tremayne Kebede MD Consulting Physician Gastroenterology 02/05/20 3 Georgia Mcbride LPN [address] [place] [address] ACO Care Certified Medical Transcriptionist 11/28/20 12/19/20 Miscellaneous, Not In File 07/17/21 03/16/23 Cony Pemberton, CHESS INSTRUCTOR [address] [facility] ([facility] Mailstop [phone] [place] [address] SHOP Outpatient Osteopathic Physician 12/07/22 12/07/22 Antonette Vernon, KADY [address] [place] [address] SHOP Outpatient Osteopathic Physician 12/08/22 01/05/23 Andrei Chaves MD PhD [address] [facility] [address] [place] [address] Referring Physician General Surgery 03/17/23 Olivia Phelps MD [address] [place], [place] [address] Consulting Physician Nephrology 03/17/23 Odilon Tellez MD [address] [facility] [address] [place] [address] Consulting Physician Nephrology 05/01/23 12/04/24 Miscellaneous, Not In File 07/08/23 01/24/24 Ct Bog[address], [facility] [address] [facility] ([facility] Mailstop [phone] [place] [address] SHOP Outpatient Osteopathic Physician 07/09/23 08/05/23 dOilon Tellez MD [address] [facility] [address] [place] [address] Referring Physician Nephrology 11/12/23 Tracey Felix, RN [address] [place] [address] Donor Relations Manager 11/12/23 11/17/23 Ayaka Thomas MD [address] [place] [address] Fellow Internal Medicine 12/17/23 Yumi Jones NP [address] [facility] [address] [place] [address] Nurse Practitioner Hospice and Palliative Medicine 08/16/23 Ruthy Leahy LCSW [place] Machine Operator 12/31/23 02/22/24 Feli Boggs RN [address] [place] [address] [address] [place] [address] Sand Blaster 12/31/23 01/02/24 Mendel Bowling, KADY [address] [place] [address] [address] [place] [address] Sand Blaster 01/03/24 03/23/24 Leslie Baptiste [address] [place] [address] Pharmacist Pharmacy 01/13/24 02/03/24 Mendel Bowling, KADY [address] [place] [address] [address] [place] [address] Sand Blaster 11/07/24 Odilon Tellez MD [address] [facility] [address] [place] [address] Consulting Physician Nephrology 12/05/24 Mavis Barahona, RN [address] [facility] [address] [place] [address] Donor Relations Manager 12/20/24 documented as of this encounter
--- OUTSIDE RECORDS SUMMARY | 2025-01-01 15:39 | XMS_ITS | Encounter Summary ---
Author Organization [facility] Address [address] [place] [address] Care Team Providers Care Manufacturing Support Engineer Name Role Phone Lay Villalta MD Primary Care Provider [phone] Edgardo Aldridge MD Primary Care Provider [phone] Encounter Details Date Type Department Care Team (Late st Contact Info) Description 07/17/2019 Lab Requisition [facility] [address] [place] [address] Unknown, Provider Social History Tobacco Use Types Packs/Day Years Used Date Smoking Tobacco: Never Smokeless Tobacco: Never Alcohol Use Standard Drinks/Week Comments No 0 (1 standard drink = 0.6 oz pur e alcohol) Comments Unknown Sex and Gender Information Value Date Recorded Sex Assigned at Not on file Legal Sex Female 5:44 AM PRODUCTION BORING MACHINE OPERATOR Gender Identity Not on file Sexual Orientation Not on file 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 This test has been authorized [...] LAB - MICROBIOLOGY ORDERABLES F inal Result [facility] [address] [place] [address], [facility] [phone] documented in this encounter Visit Diagnoses Not on filedocumented in this encounter Care Teams Manufacturing Support Engineer Relationship Specialty Start Date End Date Lay Villalta MD [address] [facility] [address] [place] [phone] PCP - General Family Medicine 07/07/15 12/27/23 Edgardo Aldridge MD [address] [facility] [address] [place] [id number] PCP - General Family Medicine 12/28/23 documented as of this encounter
--- OUTSIDE RECORDS SUMMARY | 2025-01-01 15:39 | XMS_ITS | Encounter Summary ---
Author Organization [facility] Address [address] [address] Phone Care Team Providers Care Developer Evangelist Name Role Phone Lay Villalta MD Primary Care Provider [phone] Eun Camacho Primary Care Provider [phone] Encounter Details Date Type Department Care Team (Late st Contact Info) Description 07/30/2021 Telephone [facility] Med Surg [address] [phone] Kyleigh Thornton, RN [place] Social History Tobacco [...] on filedocumented in this encounter Care Teams Developer Evangelist Relationship Specialty Start Date End Date Lay Villalta MD [address]ONY [address] [place] [id number] PCP - General Family Medicine 07/10/21 06/27/22 Eun Camacho PAC [address] ANTHONY [address] [place] [address] PCP - General Family Medicine 06/28/22 documented as of this encounter
--- OUTSIDE RECORDS SUMMARY | 2025-01-01 15:39 | XMS_ITS | Encounter Summary ---
Author Organization [facility] Facility Care Team Providers Care Clerical Dentist Assistant Name Role Phone Unknown, Notinfile Primary Care Provider Unavail able Lay Villalta MD Primary Care Provider [phone] Tremayne Kebede MD Unavailable [phone] Georgia Mcbride PROFILING MACHINE SETUP OPERATOR Unavailable [phone] Miscellaneous, Not In File Unavailable Unava ilable Eun Camacho Primary Care Provider + Cony Pemberton RETAIL LEADER Unavailable [phone] Antonette Vernon RN Unavailable [phone] Andrei Chaves MD PhD Unavailable [phone] Olivia Phelps MD Unavailable [phone] Edgardo Aldridge MD Primary Care Provider [phone] Odilon Tellez MD Unavailable [phone] Miscellaneous, Not In File Unavailable Unava ilable Ct Boggs RETAIL LEADER Unavailable [phone] Odilon Tellez MD Unavailable [phone] Tracey Felix RN Unavailable [phone] Ayaka Thomas MD Unavailable [phone] Yumi Jones NP Unavailable [phone] TosinRuthy wilder RETAIL LEADER Unavailable Unavaila Feli Dominguez RN Unavailable [phone] Mendel Bowling RN Unavailable [phone] Leslie Baptiste [facility] Unavailable Mendel Bowling RN Unavailable [phone] Odilon Tellez MD Unavailable [phone] Mavis Barahona RN Unavailable [phone] Encounter Details Date Type Department Care Team (Latest Contact Info) Description 04/07/2016 Orders Only [facility] ProviderSotero MD [address] [place] [address] Social History Tobacco Use Types Packs/Day Years Used Date Smoking Tobacco: Never Comments Unknown Sex and Gender Information Value Date Recorded Sex Assigned at Not on file Legal Sex Female 9:16 AM FUNERAL HOME DIRECTOR Gender Identity Not on file Sexual Orientation Not on file documented as of this encounter Plan of Treatment Not on file documented as of this encounter Procedures Procedure Name Priority Date/Time Associated Diagnosis Comments CARDIOLOGY REPORT 04/07/2016 12: 00 AM FUNERAL HOME DIRECTOR documented in this encounter Results * CARDIOLOGY REPORT (04/07/2016 12:00 AM FUNERAL HOME DIRECTOR) Anatomical Region Laterality Modality Other Narrative 04/07/2016 12:00 AM FUNERAL HOME DIRECTOR Ordered by an unspecified provider. Historical Provider [...] CDT COVID19 02/02/2020 02/02/2020 02/19/2020 3:05 AM FUNERAL HOME DIRECTOR COVID: Recovered Comment:Added based on recent COVID [...] COVID: Suspected 06/15/2023 06/15/2023 06/15/2023 5:53 PM FUNERAL HOME DIRECTOR C. difficile suspected 06/24/2023 06/24/202306/26 6:03 AM CDT COVID: Suspected 06/27/2023 06/27/2023 06/27/2023 7:07 PM CDT COVID: Suspected 07/10/2023 07/10/2023 07/10/2023 6:50 AM CDT COVID: Suspected 07/13/2023 07/13/2023 07/13/2023 9:45 PM CDT MRSA Comment:MRSA Isolation Fdc 06/21/24 10/23/2023 02/09/2024 06/21/2024 6:[address] C. 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 Source: [facility]. 08/20/2024 Carbapenemase, Unspecified Comment:Added from external infection. Source: [facility]. Kleb pneumo KPC 09/23/2024 10/31/2024 3:07 PM C DT CP-PRODUCTION LINE ASSEMBLER Comment:Added from external infection. Source: [facility]. Kleb pneumo KPC 10/31/2024 10/31/2024 documented as of this encounter Care Teams Clerical Dentist Assistant Relationship Specialty Start Date End Date Unknown, Notinfile PCP - General 12/28/16 08/23/18 Lay Villalta MD PCP - General Family Medicine 08/24/18 07/17/21 Eun Camacho PA PCP - General Family Medicine 07/18/21 03/08/23 Edgardo Aldridge MD [address] [facility] [address] [place] [address] PCP - General Family Medicine 04/02/23 Tremayne Kebede MD Consulting Physician Gastroenterology 02/05/20 3 Georgia Mcbride LPN [address] [place] [address] ACO Care Senior Enterprise Architect 11/28/20 12/19/20 Miscellaneous, Not In File 07/17/21 03/16/23 Cony Pemberton, RETAIL LEADER [address] [facility] [place] Mailstop [phone] [place] [address] SHOP Outpatient Heading Up Machine Operator 12/07/22 12/07/22 Antonette Vernon, KADY [address] [place] [address] SHOP Outpatient Heading Up Machine Operator 12/08/22 01/05/23 Andrei Chaves MD PhD [address] [place] [address] Referring Physician General Surgery 03/17/23 Olivia Phelps MD [address] [facility] [address] [place], [place] [address] Consulting Physician Nephrology 03/17/23 Odilon Tellez MD [address] [facility] [address] [place], [place] [id number] Consulting Physician Nephrology 05/01/23 12/04/24 Miscellaneous, Not In File 07/08/23 01/24/24 Ct Boggs, [facility] [address] [facility] [place] Mailstop [phone] [place] [address] [facility] Outpatient Heading Up Machine Operator 07/09/23 08/05/23 Odilon Tellez MD [address] [facility] [address] [place] [address] Referring Physician Nephrology 11/12/23 Tracey Felix, KADY [address] [place] [address] Regional Forester 11/12/23 11/17/23 Ayaka Thomas MD [address] [place] [address] Fellow Internal Medicine 12/17/23 Yumi Jones NP [address] [facility] [address] [place] [address] Nurse Practitioner Hospice and Palliative Medicine 08/16/23 Ruthy Leahy LCSW Retinal Surgeon 12/31/23 02/22/24 Feli Boggs RN [address] [place] [address] [address] [place] [address] [employer] Inspector 12/31/23 01/02/24 Mendel Bowling, KADY [address] [place] [address] [address] [place] [address] [employer] Inspector 01/03/24 03/23/24 Leslie Baptiste [address] [place] [address] Pharmacist Pharmacy 01/13/24 02/03/24 Mendel Bowling, KADY [address] [place] [address] [address] [place] [address] [employer] Inspector 11/07/24 Odilon Tellez MD [address] [facility] [address] [place] [address] Consulting Physician Nephrology 12/05/24 Mavis Barahona, RN [address] [facility] [address] [place] [address] Regional Forester 12/20/24 documented as of this encounter
--- OUTSIDE RECORDS SUMMARY | 2025-01-01 15:39 | XMS_ITS | Clinical Summary ---
Author Organization [facility] Address [address] [place] [address] Care Team Providers Care Medical Technologist Chief Name Role Phone Andrei Chaves MD PhD Unavailable [phone] Olivia Phelps MD Unavailable [phone] Edgardo Aldridge MD Primary Care Provider Odilon Tellez MD Unavailable [phone] Ayaka Thomas MD Unavailable [phone] Yumi Jones NP Unavailable [phone] Mendel Bowling RN Unavailable [phone] Odilon Tellez MD Unavailable [phone] Mavis Barahona RN Unavailable [phone] Allergies Active Allergy Reactions Criticality Noted [...] Medium 01/11/2024 Medications blood-glucose meter,continuous (Dexcom G6 Skoog Patching Machine Operator) miscIndications:U ncontrolled type 1 diabetes mellitus with hyperglycemia, with long-term current use of insulin (HCC) 1 Dexcom G6 Skoog Patching Machine Operator 1 each 023 Active OneTouch Delica Plus [...] hyperglycemia, with long-term current use of insulin ([facility]) Will use 1 sensor every 10 days. 1 box = 3 sensors. 3 each Active blood-glucose transmitter (Dexcom G6 Transmitter) deviceIndications :Uncontrolled type 1 diabetes mellitus with hyperglycemia, with long-term current use of insulin ([facility]) Will use 1 transmitter every 90 days [...] cell capsule Take 1 capsule by mouth wire weaver before breakfast Active albuterol 2.5 mg /3 [...] 08/07/2021 Assessment & Plan (05/13/2022 9:19 AM ELECTRICAL APPLIANCE SERVICER): Glucose overall improved Continue current regimen Given [...] xanx Assessment & Plan (05/15/2020 6:30 AM ELECTRICAL APPLIANCE SERVICER): Uncontrolled Start cymbalta, xanax Odynophagia 04/09/2020 DKA [...] not be able to see her own yard switch operator until September. Continue to monitor. Hold any [...] consult Assessment & Plan (05/15/2020 6:30 AM ELECTRICAL APPLIANCE SERVICER): PICC line in place because of need for recurrent IVF Assessment & Plan (06/27/2019 8:49 AM CDT): - 2/2 diabeters and chronic poor control and long standing cyclic vomiting and gastroperesis. Diet as tolerated, diabetic diet. Assessment & Plan (06/12/2019 12:12 PM ELECTRICAL APPLIANCE SERVICER): -Continue supplements as tolerated Diabetic gastroparalysis 11/08/2018 [...] mostly IV dilaudid and was on a SCORING MACHINE OPERATOR briefly. - continues to have severe [...] same. Plan change to esophageal diet today. Ux Researcher to review prior to dc Plan f/u with Dr Chaves in GI as OP Assessment & Plan (03/31/2022 5:47 PM ELECTRICAL APPLIANCE SERVICER): Type 1 diabetic Cyclical vomiting, gastroparesis - [...] year. Has an appointment for GI in [place] next month. Currently is on SSI, but [...] q1hr Assessment & Plan (05/15/2020 2:56 PM ELECTRICAL APPLIANCE SERVICER): Needs letter for another 2 weeks off and when returns needs intermittent restrictions on return with no more than 3 days per week, but not consecutive 3 days Assessment & Plan (05/15/2020 6:29 AM ELECTRICAL APPLIANCE SERVICER): Uncontrolled Cont treatment per GI Cont reglan Has PICC line Assessment & Plan (06/27/2019 8:44 AM CDT): - Chronic emesis which triggers DKA. No active symptoms now. - PCP follow up. - Glucose control as above. Assessment & Plan (04/21/2019 1:24 PM ELECTRICAL APPLIANCE SERVICER): -Patient reports h/o positive gastric emptying study [...] had discussion with patient regarding pain control. parts counterman opioids would be a very poor choice for her, given her gastroparesis, young age, and potential for developing dependence/addiction. Will not discharge on opioids. Assessment & Plan (04/20/2019 6:16 PM ELECTRICAL APPLIANCE SERVICER): -Patient reports h/o positive gastric emptying study [...] fluids Assessment & Plan (03/29/2020 5:23 AM ELECTRICAL APPLIANCE SERVICER): Uncontrolled Cont long acting insulin with SSI F/u with yard switch operator Assessment & Plan (03/20/2020 5:26 AM ELECTRICAL APPLIANCE SERVICER): Uncontrolled Cont insulin pump per endocrinology Vitamin [...] losartan Assessment & Plan (03/31/2022 5:47 PM ELECTRICAL APPLIANCE SERVICER): Not at goal Pt left office today [...] 10mg Assessment & Plan (03/29/2020 5:24 AM ELECTRICAL APPLIANCE SERVICER): Stable Cont lisinopril, amlodipine Assessment & Plan [...] lisinopril. Assessment & Plan (06/12/2019 12:12 PM ELECTRICAL APPLIANCE SERVICER): continue lisinopril and toprol xl , clonidine patch Assessment & Plan (06/11/2019 1:52 PM ELECTRICAL APPLIANCE SERVICER): _BP better today , continue lisinopril and toprol xl Assessment & Plan (05/07/2019 2:03 PM ELECTRICAL APPLIANCE SERVICER): On clonidine, metoprolol and lisinopril at home. - continue home clonidine and metoprolol - hold lisinopril for now (? EUGENIE related intestinal angioedema). May need to consider alternative anti-hypertensive if needed as a trial. Assessment & Plan (04/28/2019 4:43 PM ELECTRICAL APPLIANCE SERVICER): - Cont home meds Assessment & Plan (04/27/2019 2:59 PM ELECTRICAL APPLIANCE SERVICER): - Cont home meds Assessment & Plan (04/21/2019 12:59 PM ELECTRICAL APPLIANCE SERVICER): Clonidine patch and metoprolol XL -BP stable Assessment & Plan (04/11/2019 12:43 PM ELECTRICAL APPLIANCE SERVICER): Cont lisinopril and Toprol XL, and due for change of clonidine patch Assessment & Plan (04/10/2019 11:29 AM ELECTRICAL APPLIANCE SERVICER): BP elevated this am but improved after [...] be an option per palliative consult at [facility]. She is no longer wishing for hospice, [...] 1400mL 07/06, but pt refusing catheterization. On PLEXIGLAS FORMER already, but at risk for bladder perforation. [...] 07/05, 07/06 & 07/07. [facility], as well. -Consulted urology for bladder decompression options & hess placed. Pt wishes to go home today, BG now controlled. Plan dc home today with [facility], orders placed 07/07. Transition meds to PO at discharge, as pt tolerating diet. Discharge Planning I have spent 30 minutes on discharge planning activities. Time spent was on Coordination of care, Follow up , Counselling with patient/family, discharge exam, parent/patient education, PCP communication, and Other provider communication. Assessment & Plan (06/15/2023 3:17 AM ELECTRICAL APPLIANCE SERVICER): Related with gastroparesis. See gastroparesis section Type [...] as well, related to diabetes. Counseled on terminal superintendent effects of poorly controlled diabetes by multiple [...] she was discharged from ED. Came to [facility] ED on 07/12, again discharged from ED. Returned to [facility] on 07/13 with same symptoms and admitted [...] she was discharged from ED. Came to [facility] ED on 07/12, again discharged from ED. Returned to [facility] on 07/13 with same symptoms and admitted [...] 12/22/2022 Assessment & Plan (05/15/2020 6:30 AM ELECTRICAL APPLIANCE SERVICER): Will need to get flushed Weight loss [...] now. Urged patient to re-establish with previous yard switch operator for management. Need back on insulin pump [...] appreciated Assessment & Plan (06/07/2020 3:17 PM ELECTRICAL APPLIANCE SERVICER): Persistent Cont regjonny martinez, compazine Refer to new gi Nausea & vomiting 05/07/2019 06/15/2023 Assessment & Plan (03/29/2020 5:23 AM ELECTRICAL APPLIANCE SERVICER): Uncontrolled Secondary to severe gastroparesis Will try scopolamine patch Cont perla fullerazine prn Assessment & Plan (06/12/2019 12:13 PM ELECTRICAL APPLIANCE SERVICER): -resolved -continue home meds, tolerating diet -has h/o cyclical vomiting and follows with GI -Reports benefit from recently added Motegrity and amitriptyline. She is on a low dose amitriptyline 25mg QHS. Will increase to 50mg QHS. Pt reports some restless leg side effects, advised her to watch carefully and reduce dose if RLS worsens. Assessment & Plan (06/11/2019 1:55 PM ELECTRICAL APPLIANCE SERVICER): -resolved -continue home meds, tolerating diet -has h/o cyclical vomiting and follows with GI Assessment & Plan (05/07/2019 1:59 PM ELECTRICAL APPLIANCE SERVICER): Previously seen by GI and felt to [...] 07/19/2023 Assessment & Plan (03/31/2022 5:48 PM ELECTRICAL APPLIANCE SERVICER): Seen by GI Fluids given Assessment & [...] GI Assessment & Plan (06/07/2020 3:17 PM ELECTRICAL APPLIANCE SERVICER): Persistent Cont reglan, zofran, compazine Refer to new gi Assessment & Plan (05/31/2020 2:18 PM ELECTRICAL APPLIANCE SERVICER): Uncontrolled Cont treatment per GI Has PICC line Assessment & Plan (05/15/2020 6:29 AM ELECTRICAL APPLIANCE SERVICER): Uncontrolled Cont treatment per GI Has PICC line Assessment & Plan (03/20/2020 5:26 AM ELECTRICAL APPLIANCE SERVICER): Uncontrolled Cont treatment per GI To refer [...] up. Assessment & Plan (04/28/2019 4:43 PM ELECTRICAL APPLIANCE SERVICER): - Seen by GI last admission. Thought that available data and history more consistent with [facility]. - Started on low dose amitriptyline, will increase to 50mg - Uses promethazine for N/V Assessment & Plan (04/27/2019 2:53 PM ELECTRICAL APPLIANCE SERVICER): - Seen by GI last admission. Thought [...] considered. Assessment & Plan (05/07/2019 2:02 PM ELECTRICAL APPLIANCE SERVICER): Has not yet started Motegrity at home due to issues with pharmacy. No BM in 3 days per patient. - start motegrity 2mg qd Assessment & Plan (04/28/2019 4:43 PM ELECTRICAL APPLIANCE SERVICER): - Had BM after none for 5 days. Rx'd prucalopride last admission, just today arrived to pharmacy so not taken. She reports that she received opioids for the first time last admission - Will hold for now as she says she alternates with diarreha. Assessment & Plan (04/27/2019 3:00 PM ELECTRICAL APPLIANCE SERVICER): - Had BM after none for 5 [...] recs Assessment & Plan (04/21/2019 12:59 PM ELECTRICAL APPLIANCE SERVICER): -Ux Researcher consult, supplements as recommended. Patient doesn't like taste of many supplements Assessment & Plan (04/11/2019 12:43 PM ELECTRICAL APPLIANCE SERVICER): Treating nausea and encourage more regular food [...] gastroparesis. Assessment & Plan (06/12/2019 12:11 PM ELECTRICAL APPLIANCE SERVICER): - weaned off isulin drip , now [...] today Assessment & Plan (06/11/2019 1:55 PM ELECTRICAL APPLIANCE SERVICER): - weaned off onsulin drip , now [...] . Assessment & Plan (04/28/2019 4:43 PM ELECTRICAL APPLIANCE SERVICER): - Recurrent admissions, seem to be brought [...] intake Assessment & Plan (04/27/2019 2:59 PM ELECTRICAL APPLIANCE SERVICER): - Recurrent admissions, seem to be brought [...] outpatient Assessment & Plan (04/21/2019 1:02 PM ELECTRICAL APPLIANCE SERVICER): -DKA resolved after IV insulin, IVF and electrolyte repletion in ICU Assessment & Plan (04/20/2019 6:13 PM ELECTRICAL APPLIANCE SERVICER): -DKA resolved after IV insulin, IVF and electrolyte repletion in ICU Assessment & Plan (04/11/2019 12:48 PM ELECTRICAL APPLIANCE SERVICER): Presented with N/V which she felt was [...] closely Assessment & Plan (04/10/2019 11:28 AM ELECTRICAL APPLIANCE SERVICER): Presented with N/V which she felt was due to gastroparesis flare, in DKA on admission. Anion gap closed, received 18 Units Lantus before midnight. Cont present SQ insulin orders, monitor sugars closely Diabetes education ordered Discharge home once tolerating po later today or tomorrow Concussion with loss of consciousness 11/08/2018 03/31/2022 Polyneuropathy 11/08/2018 12/22/2022 Diabetes mellitus 11/08/2018 03/31/2022 Diabetes mellitus with gastr oparesis ([facility]) 07/07/2018 03/31/2022 Assessment & Plan (07/31/2021 11:00 [...] to repetitive movements c/w tardive dyskinesia. 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 Was previously on Reglan but discontinued due to repetitive movements c/w tardive dyskinesia. - unit educator - Fish Bait Processing Supervisor - on sliding scale only for now, will add on basal+bolus regimen if necessary - follow POC glucose checks Assessment & Plan (04/11/2019 12:42 PM ELECTRICAL APPLIANCE SERVICER): Longstanding gastroparesis per patient. Recently admitted at [facility] but left 2-3 days prior to admission here as she says she was unhappy with her care. Nausea recurred this am but no vomiting. Will resume IVF if she doesn't tolerate lunch. I reviewed some records from [facility] and found a gastric emptying study done in [place] which was normal, though this doesn't exclude gastroparesis I wonder if there is a functional component as well Regardless, cont supportive care with prn Zofran and added prn Compazine Assessment & Plan (04/10/2019 11:29 AM ELECTRICAL APPLIANCE SERVICER): Longstanding gastroparesis per patient. Recently admitted at [facility] but left 2-3 days prior to admission here as she says she was unhappy with her care. Cont prn antiemetics, she says Reglan didn't help in the past Outpatient GI F/U Resume IVF if she starts vomiting again Assessment & Plan (02/03/2019 9:53 AM CDT): Well controlled now since seeing yard switch operator and using OmniPod. She is cleared to [...] AM. Assessment & Plan (05/07/2019 1:58 PM ELECTRICAL APPLIANCE SERVICER): History of brittle diabetes with multiple recent [...] AM Assessment & Plan (04/21/2019 1:21 PM ELECTRICAL APPLIANCE SERVICER): -Home regimen lantus 24u QAM, humalog 1 [...] count (which we do not do at [facility]) -D/c home, close f/u as outpatient Assessment & Plan (04/20/2019 6:14 PM ELECTRICAL APPLIANCE SERVICER): -Home regimen lantus 24u QAM, humalog 1 unit per 5 gram carb, SSI -Hospital regimen lantus 15units QAM, lispro 3 unit TID, Mid dose SSI -Her diet intake has been very unpredictable 2/2 gastroparesis, so I am intentionally underdosing mealtime insulin to avoid hypoglycemia. Assessment & Plan (08/24/2018 2:44 PM CDT): Diabetes is unchanged. cont long acting insulin until sees yard switch operator ETD (Eustachian tube dysfunction), bilateral 8 07/19/2023 Diabetic gastroparesis (CMS/HCC) 05/22/2017 03/31/2022 Overview (01/08/2020): Last Assessment & Plan: Longstanding gastroparesis per patient. Recently admitted at [facility] but left 2-3 days prior to admission here as she says she was unhappy with her care. Nausea recurred this am but no vomiting. Will resume IVF if she doesn't tolerate lunch. I reviewed some records from [facility] and found a gastric emptying study done in [place] which was normal, though this doesn't exclude gastroparesis I wonder if there is a functional component as well Regardless, cont supportive care with prn Zofran and added prn Compazine Assessment & Plan (08/04/2020 4:13 PM CDT): Chronic Cont regjnony martinez Has f/u with GI Assessment & Plan (06/07/2020 3:16 PM ELECTRICAL APPLIANCE SERVICER): Persistent Cont reglan, zofran, compazine Refer to new gi Assessment & Plan (03/29/2020 5:22 AM ELECTRICAL APPLIANCE SERVICER): Severely uncontrolled To f/u with Gi Recommended patient d/w GI about tube feedings She agrees to do so Assessment & Plan (03/20/2020 5:26 AM ELECTRICAL APPLIANCE SERVICER): Uncontrolled Cont treatment per GI To refer [...] Department Care Team Description 12/29/2024 Results Follow-Up [facility] Family Medicine at [address] [place] [address] Edgardo Aldridge MD SCAN - RADIOLOGY/IMAGING 12/28/2024 Documentation [facility] Medicine Gastroenterology [address] [facility] [address] [place] [phone] Jaimie Manriquez, KADY Consult from Peg-J 12/28/2024 Results Follow-Up [facility] Medicine Gastroenterology [address] [place] [address] [address]th [place] [address] [place] [phone] Young Vasquez MD Surgical pathology 12/26/2024 8:46 AM CDT Anesthesia Event [facility] Digestive [address] [address] Dylan Frias MD Kandachar, Suman Subbaraya, MD 12/26/2024 8:45 AM CDT - 12/26/2024 9:45 AM CDT Surgery [facility]estive Disease [address] [address] Young Vasquez MD COLON BIOPSY 12/26/2024 6:53 AM CDT - 12/26/2024 11:18 AM CDT Hospital Encounter [address] [address] Young Vasquez MD Perirectal fistula; Gastroparesis Discharge Disposition: Discharge to home or self care 12/26/2024 6:40 AM CDT Lab [facility] [address] [place] [phone] Dialysis patient; Pre-procedure lab exam 12/26/2024 Results Follow-Up [facility] Medicine Gastroenterology [address] [place] [address] [address]th [place] [address] [place] [address] Abdomen and Pelvis Enterography W Contrast 12/25/2024 11:57 AM CDT - 12/25/2024 11:59 PM CDT Hospital Encounter [facility] [address] [place] [address] Perirectal fistula Discharge Disposition: Discharge to home or self care 12/22/2024 12:28 PM CDT - 12/22/2024 11:59 PM CDT Hospital Encounter [address] [address] Closed displaced trimalleolar fracture of right ankle, initial encounter; Acute right ankle pain; Flat foot (pes planus) (acquired), right foot Discharge Disposition: Discharge to home or self care 12/22/2024 12:27 PM CDT - 12/22/2024 11:59 PM CDT Hospital Encounter [address] [address] Lisfranc dislocation, right, initial encounter; Acute pain of right foot; Flat foot (pes planus) (acquired), right foot Discharge Disposition: Discharge to home or self care 12/22/2024 Orders Only [facility] Health Information Management [address] [place] [address] Edgardo Aldridge MD 12/20/2024 Telephone [facility] Transplant Kidney [address] [facility] [address] Mailstop [phone] [place] [address] Julissa Urban Referral - Kidney Txp 12/19/[address] [facility] Specialty Services [address] [place] [phone] Bri Anton RN GI PROCEDURE 7 DAY PRE CALL 12/07/2024 1:00 PM CDT Office Visit [facility] Orthopedics and Sports Medicine [address] [place] [address] [address] [place] [phone] Raul Clark DO Acute pain of right foot (Primary Dx); Right ankle pain, unspecified chronicity; Lisfranc dislocation, right, initial encounter; Closed displaced trimalleolar fracture of right ankle, initial encounter; Acute right ankle pain; Flat foot (pes planus) (acquired), right foot 12/07/2024 12:51 PM CDT - 12/07/2024 11:59 PM CDT Hospital Encounter [facility] Diag Imaging [address] [place] [address] Right ankle pain, unspecified chronicity Discharge Disposition: Discharge to home or self care 12/05/2024 Telephone [facility] Transplant Kidney [address] [facility] [address] Mailstop [phone] [place] [address] Julissa Urban Referral - Kidney Txp 11/28/2024 Telephone [facility] Nephrology at [address] [place] [address] Odilon Tellez MD 11/23/2024 Results Follow-Up [facility] Family Medicine at [address] [place] [address] Egdardo Aldridge MD SCAN - RADIOLOGY/IMAGING 11/22/2024 Results Follow-Up [facility] Family Medicine at [address] [place] [address] Edgardo Aldridge MD XR Ankle Right 3+ Vw 11/21/2024 Orders Only [facility] at [address] [place] [address] Edgardo Aldridge MD Crushing injury of right foot and ankle, subsequent encounter 11/16/2024 12:05 AM CDT - 11/16/2024 11:59 PM CDT Hospital Encounter [facility] [employer] [address] [facility] [place] [address] Discharge Disposition: Discharge to home or self care 11/16/2024 - 11/16/2024 11:59 PM CDT Hospital Encounter [facility] [employer] [address] [facility] [place] [address] Discharge Disposition: Discharge to home or self care 11/16/2024 Orders Only [facility] Health Information Management [address] [place] [address] Edgardo Aldridge MD 11/14/2024 Telephone [facility] Family Medicine at [address] [place] [address] Edgardo Aldridge MD 11/13/2024 Telephone [facility] Medicine at [address] [place] [phone] Edgardo Aldridge MD 3rd No Show Letter sent to patient 11/13/2024 Results Follow-Up [facility] Medicine at [address] [place] [address] Chest WO Contrast 11/09/2024 Telephone [facility] at [address] [place] [address] Edgardo Aldridge MD Additional Services Or Orders 11/09/2024 Telephone [facility] at [address] [place] [phone] Edgardo Aldridge MD Medical Question/Miscellaneou s 11/08/[address] [facility] Gastroenterology [address] [facility] 12th [place] [address] [place] [address] Yareli Jones CMA Perirectal fistula (Primary Dx) 11/06/2024 9:00 AM CDT Office Visit [facility] Gastroenterology [address] [facility] [address]th [place] [address] [place] [address] Young Vasquez MD Gastroparesis (Primary Dx); Perirectal fistula; Diabetic gastroparesis (HCC); Diarrhea, unspecified type 11/03/2024 Telephone [facility] Family Medicine at [address] [place] [phone] Edgardo Aldridge MD Medical Question/Miscellaneou s 11/02/2024 Telephone [facility] at [address] [place] [phone] Edgardo Aldridge MD JACKELYN Questions 10/29/2024 10:16 AM CDT - 11/05/2024 10:34 AM CDT Hospital Encounter [facility] [address] [facility] [place] [address] Nathan Moore MD Griffey, MD Helio Guevara, MD Freddy Villagran Edward, MD PhD Dutch Blake MD Nausea and vomiting, unspecified vomiting type (Primary Dx); Gastroparesis; Type 1 diabetes mellitus with other specified complication (HCC) Discharge Disposition: Discharge to home or self care 10/27/2024 9:15 AM CDT - 10/27/2024 11:59 PM CDT Hospital Encounter [facility] [address] [place] [address] Gastroparesis due to secondary diabetes (HCC); Presence of neurostimulator; Encounter for adjustment and management of neurostimulator Discharge Disposition: Discharge to home or self care 10/27/2024 8:45 AM CDT Office Visit [facility] Minimally Invasive Surgery [address] [place] [address] [address]th [address], [place] [address] Micaela Suero NP Gastroparesis due to secondary diabetes (HCC) (Primary Dx); Presence of neurostimulator; Encounter for adjustment and management of neurostimulator 10/27/2024 Telephone [facility] Minimally Invasive Surgery [address] [place] [address] [address]th [address], [place] [address] Micaela Suero NP 10/26/2024 Telephone [facility]) - [facility] Minimally Invasive Surgery [address] [place] [address] 12th Floor, [place] [address] Andrei Chaves MD PhD Medical Question/Miscellaneou s 10/25/2024 10:45 AM CDT Office Visit [facility] Family Medicine at [address] [address] [place] [address] Edgardo Aldridge MD Diabetic ketoacidosis without coma associated with type 1 diabetes mellitus (HCC) (Primary Dx); ESRD on dialysis (HCC); Gastroparesis; Crushing injury of right foot and ankle, subsequent encounter; Osteoporosis without current pathological fracture, unspecified osteoporosis type; Exocrine pancreatic insufficiency 10/13/2024 Telephone [facility] Medicine at [address] [place] [address] Edgardo Aldridge MD JACKELYN Questions 10/05/[address] [facility] Endocrinology Metabolism and Lipid [address] 13th [place] [address] [place] [id number] 10/05/2024 Telephone [facility] at [address] [place] [phone] Edgardo Aldridge MD Medical Question/Miscellaneou s 10/03/2024 Orders Only [facility] - [facility] Minimally Invasive Surgery [address], [place] [address] Tonia Ramos RMA from Last 3 Months [...] drink = 0.6 oz pur e alcohol) [facility] Utilities Answer Date Recorded In the past 12 months has [employer] electric, gas, oil, or water company threatened [...] often do you attend chur ch or zoroastrian services? Never 11/07/2024 Do you belong to any clubs o r organizations such as yarsani groups, unions, fraternal or athletic groups, or [...] Date Recorded PHQ-2 Total Score 0 11/01/2024 [employer] [facility] Occupat ional Health - Occupational Stress [...] any time in the past 12 m [facility], were you homeless or living in a prison (including now)? No 11/07/2024 AUDIT-C Answer Date [...] on file Legal Sex Female 9:16 AM ELECTRICAL APPLIANCE SERVICER Gender Identity Not on file Sexual Orientation [...] bowel issues. Medical Devices Implanted Type Area Asset Management Analyst Device Identifier Shelf Expiration Date Model / Serial / Lot Raquel Lyric Trialysis 13fr 24cm Dialysis Tray Catheter Sterile Short Term [id number] - [id number] Implanted:Qty: 1 on 10/27/2023 by Juan Long MD at [facility] Catheter Right: Groin Raquel [facility] [id number] 07/17/2024 [id number] / / [id number] [employer] Symmetry Vesolock Large Clip Internal 14308m - Sn/A - [id number] Implanted:Qty: 1 on 10/05/2022 by Andrei Chaves MD PhD at [facility] Clip N/A: Abdomen [employer] 04/19/2025 [id number] / N/A / Med[employer] Enterra 35cm Lead Unipolar Kit Stimulator 4351-35 - [id number] - [id number] Implanted:Qty: 1 on 10/05/2022 by Andrei Chaves MD PhD at [facility] Stimulator N/A: Abdomen [employer] 06/04/2024 4351-35 / [id number] / [employer] Enterra 35cm Lead Unipolar Kit Stimulator 4351-35 - [id number] - [id number] Implanted:Qty: 1 on 10/05/2022 by Andrei Chaves MD PhD at [facility] Stimulator N/A: Abdomen [employer] 08/10/2024 4351-35 / [id number] 2V / Medtronic Inc Neurostimulator Implantable 2.4inx2.2in Enterra Ii Gastric 31534 - [id number] - [id number] Implanted:Qty: 1 on 10/05/2022 by Andrei Chaves MD PhD at [facility] Stimulator N/A: Abdomen [employer] 11/30/2022 [id number] / [id number] / N/A [employer] Embosafe 15.5fr 24cm Basic 2 Lumen Kit Catheter [id number] - [id number] Implanted:Qty: 1 on 11/03/2023 by Skip Huddleston MD at [facility] [employer] 01/16/2026 [id number] / / Procedures Procedure Name Priority Date/Time Associated Diagnosis Comments POCT GLUCOSE DEVICE Routine 12/26/2024 9:47 AM CDT COLONOSCOPY 12/26/2024 9:16 AM CDT AK AN PROCEDURE PLACEHOLDER Routine 12/2024 9:02 AM CDT AK AN ELECTIVE ENDOTRACHEAL AIRWAY Routine 12/26/2024 9:02 [...] LAB POCT ORDERABLES - DEVICE Final Result [facility] Department [place] [address] * Colonoscopy (12/26/2024 9:16 AM CDT) Anatomical Region Laterality Modality Other Narrative Procedure Note Young Vasquez MD - 12/26/2024 9:16 AM CDT [facility] ENDOSCOPY [facility] Patient Name: Brissa Angela Procedure Date: 12/26/2024 9:16 AM Date of : 1995 Admit Type: Outpatient Age: 29 Gender: Female Attending MD: Young Vasquez M.D., Room: [facility] ENDOSCOPY ROOM 8 Note Status: Finalized [...] was passed under direct vision.The PCF [id number] endoscope was introduced through the anus and [...] MD ENDOSCOPY PROCEDURES F inal Result * AK AN ELECTIVE ENDOTRACHEAL AIRWAY, AK AN PROCEDURE PLACEHOLDER (12/26/2024 9:02 AM CDT) Narrative Federico Beltran CRNA - 12/26/2024 9:02 AM CDT Federico Beltran CRNA 12/26/2024 9:03 AM Airway Patient location: OR Urgency: elective Indications for airway management: anesthesia Difficult airway: no Staff: Supervising provider: Dylan Frias MD Placed by: ASSEMBLER MECHANICAL ORDNANCE: Federico Beltran CRNA Emergent airway documentation: Risks [...] Biopsy) 12/26/2024 9:25 AM CDT Narrative PATHOLOGY [facility] - 12/27/2024 6:13 PM CDT EPIC results best viewed via link to PDF [facility] [place] [address] Note to Patients: This report may contain [...] Gender: F : 1995 (Age: 29) Address: [address] [place] [address] Hospital #: [id number] Taken:12/26/2024 Received:12/26/2024 Reported: 12/27/2024 Patient Type: [facility] Service: Gastro Location: Physician(s): Young Vasquez [...] Labeled E1. Jar 0. elsw12/26/2024 11:42 PA(s): Samia Gtz By this signature, I attest that the above diagnosis is based upon my personal examination of the slides(and/or other material). Addenda/Procedures The performance characteristics of some immunohistochemical stains, fluorescence in-situ hybridization tests and immunophenotyping by flow cytometry cited in this report (if any) were determined by the Surgical Pathology and Flow Cytometry Departments at [facility] as part of an ongoing supplier quality program and in compliance with federally mandated [...] Surgical Pathology and Flow Cytometry Departments of [facility]. It has not been cleared or approved by the U. S. Food and Drug Administration. IMAGES AND SCANNED DOCUMENTS, IF INCLUDED, ONLY VIEWABLE IN PDF VERSION OF REPORT Young Vasquez MD LAB PATHOLOGY ORDERABL ES Final Result PATHOLOGY [facility] 3rd Floor [place], [place] [phone] * EGD (12/26/2024 8:55 AM CDT) Anatomical Region Laterality Modality Other Narrative Procedure Note Young Vasquez MD - 12/26/2024 8:55 AM CDT [facility] Patient Name: Brissa Angela Procedure Date: 12/26/2024 8:55 AM Date of : 1995 Admit Type: Outpatient Age: 29 Gender: Female Attending MD: Young Vasquez M.D., Room: [facility] ENDOSCOPY ROOM 8 Note Status: Finalized [...] HCG, ur, POC Negative Negative Lot Number \[id number] QC Backgroud Clear Acceptable QC Control Line Acceptable Urine 12/26/2024 8:43 AM CDT Young Vasquez MD POINT OF CARE TEST ORD ERABLES Final Result * POCT glucose (12/26/2024 8:41 AM CDT) Glucose, POC 102 70 - 199 mg/dL Blood 12/26/2024 8:41 AM CDT 12/26/2024 8:41 AM CDT Young Vasquez MD LAB POCT ORDERABLES - DEVICE Final Result Performing Organization Address City/State/[facility] de Phone Number [facility] Department [place] [address] * (ABNORMAL) POCT glucose (12/26/2024 7:53 AM CDT) Glucose, POC 67(L) 70 - 199 mg/dL Blood 12/26/2024 7:53 AM CDT 12/26/2024 7:53 AM CDT Young Vasquez MD LAB POCT ORDERABLES - DEVICE Final Result Performing Organization Address City/[facility] Co de Phone Number [facility] Department [place] [address] * (ABNORMAL) eGFR (12/26/2024 7:03 AM CDT) [...] ORDERABLES F inal Result Performing Organization Address City/[facility]/ZIP Co de Phone Number [facility] Department [place] [address] * (ABNORMAL) Comprehensive metabolic panel (12/26/2024 7:03 AM CDT) Sodium 129(L) 135 - 145 mmol/L Potassium, pl 4.8 3.3 - 4.9 mmol/L [facility] Comment:Hemolyzed; Potassium value may be falsely elevated by as much as 0.6-1.0 mmol/L. Suggest redraw and reanalysis. Chloride 94(L) 97 - 110 mmol/L [facility] CO2 25 22 - 32 mmol/L [facility] Anion gap 10 2 - 15 mmol/L [facility] BUN 18 6 - 25 mg/dL [facility] Creatinine 6.44(H) 0.60 - 1.10 mg/dL [facility] Glucose 110 70 - 199 mg/dL [facility] Comment: Interpretive Data Fasting glucose >/= [...] 2022. Calcium 8.2(L) 8.5 - 10.3 mg/dL [facility] Bilirubin, total 0.4 0.1 - 1.2 mg/dL [facility] Protein, pl 7.9 6.5 - 8.5 g/dL [facility] Albumin 3.7 3.5 - 5.0 g/dL [facility] Alk phos 181(H) 40 - 130 Units/L [facility] ALT 18 7 - 45 Units/L [facility] AST 31 10 - 45 Units/L [facility] Comment:Hemolyzed; result ma y be falsely elevated Blood 12/26/2024 7:03 AM CDT 12/26/2024 7:04 AM CDT us Young Vasquez MD LAB BLOOD ORDERABLES F inal Result [facility] Department [place] [address] * CT Abdomen and Pelvis Enterography W [...] by Mahin WalkerD. JA T: Report ID: [id number] Reading Location: [place] [address] Procedure Note Mahin Balderrama MD - 12/22/2024 [...] signed by Mahin CORDOVA T: Report ID: [id number] Reading Location: [place] [address] Raul Clark DO IMG CT PROCEDURES Final [...] Mahin Balderrama M.D. JA T: Report ID: [id number] Reading Location: [id number] Procedure Note Mahin Balderrama MD - 12/22/2024 [...] signed by Mahin CORDOVA T: Report ID: [id number] Reading Location: [id number] Raul Clark DO IMG CT PROCEDURES Final [...] by Andrei Nguyen M.D. T: Report ID: [id number] Reading Location: [id number] Procedure Note Andrei Nguyen MD - 12/10/2024 [...] 12/10/2024 8:43 AM - Electronically signed by Adnrei Nguyen M.D. T: Report ID: [id number] Reading Location: [place] [address] Raul Clark DO IMG XR PROCEDURES Final [...] by Andrei Nguyen M.D. T: Report ID: [id number] Reading Location: [id number] Procedure Note Andrei Nguyen MD - 12/10/2024 [...] by Andrei Nguyen M.D. T: Report ID: [id number] Reading Location: [id number] Raul Silvanoyani DO IMG XR PROCEDURES Final [...] PROCEDURES Fin al Result Performing Organization Address [facility] Co de Phone Number [email or web address] * SCAN - RADIOLOGY/IMAGING (11/16/2024) Anatomical Region Laterality Modality Other Edgardo Aldridge MD Final Result * XR Outside Reference (11/16/2024 12:00 AM CDT) Narrative RAD_MELISSA_[email or web address] - 12/07/2024 1:05 PM CDT This order has been auto-finalized and does not contain a result. us Provider Transcribed Order IMG XR PROCEDURES Fin al Result Performing Organization Address [facility]/ZIP Co de Phone Number [email or web address] * [...] - DEVICE Final Result Performing Organization Address City/[facility] Co de Phone Number [facility] [place] [address] * POCT glucose (11/05/2024 2:37 AM CDT) Glucose, POC 175 70 - 199 mg/dL Blood 11/05/2024 2:37 AM CDT 11/05/2024 2:37 AM CDT Dutch Blake MD LAB POCT ORDERABLES - DEVICE Final Result Performing Organization Address [facility] de Phone Number [facility] Department [place] [facility] [place] [address] * (ABNORMAL) eGFR (11/04/2024 9:18 PM CDT) [...] PM CDT 11/04/2024 10:06 PM CDT Luciano Hyaes MD PhD LAB BLOOD ORDERABLES Final Result [facility] [place] [address] * Differential, auto (11/04/2024 9:18 PM CDT) Neutrophil abs 5.81 1.50 - 6.50 K/cumm Imm gran abs 0.04 0.00 - 0.10 K/cumm [facility] Lymphocyte abs 1.45 0.80 - 3.30 K/cumm [facility] Monocyte abs 0.63 0.20 - 0.80 K/cumm [facility] Eosinophil abs 0.33 0.00 - 0.50 K/cumm [facility] Basophil abs 0.02 0.00 - 0.10 K/cumm [facility] Neutrophil pct 70.2 % [facility] Comment: Interpretive Data Percent cell count reference ranges are not reported, since discordance with absolute values may lead to misinterpretation of CBC data. Current Interpretive Data was last revised on 2017. Imm gran pct 0.5 % [facility] Comment: Interpretive Data Percent cell count reference ranges are not reported, since discordance with absolute values may lead to misinterpretation of CBC data. Current Interpretive Data was last revised on 2017. Lymphocyte pct 17.5 % [facility] Comment: Interpretive Data Percent cell count reference ranges are not reported, since discordance with absolute values may lead to misinterpretation of CBC data. Current Interpretive Data was last revised on 2017. Monocyte pct 7.6 % [facility] Comment: Interpretive Data Percent cell count reference ranges are not reported, since discordance with absolute values may lead to misinterpretation of CBC data. Current Interpretive Data was last revised on 2017. Eosinophil pct 4.0 % [facility] Comment: Interpretive Data Percent cell count reference ranges are not reported, since discordance with absolute values may lead to misinterpretation of CBC data. Current Interpretive Data was last revised on 2017. Basophil pct 0.2 % [facility] Comment: Interpretive Data Percent cell count reference ranges are not reported, since discordance with absolute values may lead to misinterpretation of CBC data. Current Interpretive Data was last revised on 2017. Blood 11/04/2024 9:18 PM CDT 11/04/2024 10:29 PM CDT us Luciano Hayes MD PhD LAB BLOOD ORDERABLES Final Result Performing Organization Address City/[facility]/ZIP Co de Phone Number [facility] [place] [address] * (ABNORMAL) CBC with auto differential (11/04/2024 9:18 PM CDT) WBC 8.28 3.80 - 9.90 K/cumm Hgb 8.8(L) 11.9 - 15.5 g/dL [facility] Hct 27.1(L) 35.6 - 45.5 % [facility] Plt 218 150 - 400 K/cumm [facility] MPV 11.1 9.1 - 12.3 fL [facility] RBC 3.15(L) 3.90 - 5.20 M/cumm [facility] MCV 86.0 81.3 - 96.4 fL [facility] MCH 27.9 27.1 - 33.3 pg [facility] MCHC 32.5 32.3 - 35.7 g/dL [facility] RDW CV 16.2(H) 11.1 - 14.9 % [facility] RDW SD 51.3(H) 35.7 - 48.1 fL [facility] NRBC abs 0.00 0.00 - 0.01 K/cumm [facility] Blood 11/04/2024 9:18 PM CDT 11/04/2024 10:29 PM CDT Luciano Hayes MD PhD LAB BLOOD ORDERABLES Final Result [facility] Department [place] [address] * (ABNORMAL) Basic metabolic panel (11/04/2024 9:18 PM CDT) Pathologist [facility] Sodium 141 135 - 145 mmol/L Potassium, pl 4.2 3.3 - 4.9 mmol/L [facility] Chloride 100 97 - 110 mmol/L [facility] CO2 30 22 - 32 mmol/L [facility] Anion gap 11 2 - 15 mmol/L [facility] BUN 13 6 - 25 mg/dL [facility] Creatinine 3.27(H) 0.60 - 1.10 mg/dL [facility] Glucose 241(H) 70 - 199 mg/dL [facility] Comment: Interpretive Data Fasting glucose >/= [...] 2022. Calcium 8.2(L) 8.5 - 10.3 mg/dL [facility] Blood 11/04/2024 9:18 PM CDT 11/04/2024 10:06 PM CDT Luciano Hayes MD PhD LAB BLOOD ORDERABLES Final Result [facility] Department [place] [address] * (ABNORMAL) POCT glucose (11/04/2024 9:16 PM CDT) Glucose, POC 231(H) 70 - 199 mg/dL Blood 11/04/2024 9:16 PM CDT 11/04/2024 9:16 PM CDT Dutch Blake MD LAB POCT ORDERABLES - DEVICE Final Result Performing Organization Address [facility] de Phone Number [facility] [place] [address] * (ABNORMAL) POCT glucose (11/04/2024 6:50 PM CDT) Glucose, POC 380(H) 70 - 199 mg/dL Blood 11/04/2024 6:50 PM CDT 11/04/2024 6:50 PM CDT Dutch Blake MD LAB POCT ORDERABLES - DEVICE Final Result Performing Organization Address [facility] Phone Number [facility] [place] [address] * POCT glucose (11/04/2024 3:55 PM CDT) Glucose, POC 184 70 - 199 mg/dL Blood 11/04/2024 3:55 PM CDT 11/04/2024 3:55 PM CDT Dutch Blake MD LAB POCT ORDERABLES - DEVICE Final Result Performing Organization Address [facility] Phone Number [facility] [place] [address] * POCT glucose (11/04/2024 12:51 PM CDT) Glucose, POC 122 70 - 199 mg/dL Blood 11/04/2024 12:5 1 PM CDT 11/04/2024 12:51 PM CDT Dutch Blake MD LAB POCT ORDERABLES - DEVICE Final Result Performing Organization Address [facility]/ZIP Co de Phone Number [facility] Department [place] [address] * POCT glucose (11/04/2024 7:16 AM CDT) [facility] Glucose, POC 107 70 - 199 mg/dL Blood 11/04/2024 7:16 AM CDT 11/04/2024 7:16 AM CDT Dutch Blake MD LAB POCT ORDERABLES - DEVICE Final Result Performing Organization Address City/[facility]/ZIP Co de Phone Number [facility] [place] [address] * POCT glucose (11/04/2024 2:03 AM CDT) [facility] Glucose, POC 145 70 - 199 mg/dL Comment:Glu2: RN/MD Notified Glucose comment 1 Glu2: RN/MD Notified [facility] Blood 11/04/2024 2:03 AM CDT 11/04/2024 2:03 AM CDT Dutch Blake MD LAB POCT ORDERABLES - DEVICE Final Result Performing Organization Address City/[facility] Co de Phone Number [facility] Department [place] [address] * (ABNORMAL) eGFR (11/03/2024 10:59 PM CDT) [facility] eGFR 9(L) >=60 mL/min/1. 73 m2 Comment: [...] MD PhD LAB BLOOD ORDERABLES Final Result [facility] [place] [address] * Differential, auto (11/03/2024 10:59 PM CDT) Neutrophil abs 3.37 1.50 - 6.50 K/cumm Imm gran abs 0.01 0.00 - 0.10 K/cumm [facility] Lymphocyte abs 2.13 0.80 - 3.30 K/cumm [facility] Monocyte abs 0.62 0.20 - 0.80 K/cumm [facility] Eosinophil abs 0.34 0.00 - 0.50 K/cumm [facility] Basophil abs 0.02 0.00 - 0.10 K/cumm [facility] Neutrophil pct 51.9 % [facility] Comment: Interpretive Data Percent cell count reference ranges are not reported, since discordance with absolute values may lead to misinterpretation of CBC data. Current Interpretive Data was last revised on 2017. Imm gran pct 0.2 % [facility] Comment: Interpretive Data Percent cell count reference ranges are not reported, since discordance with absolute values may lead to misinterpretation of CBC data. Current Interpretive Data was last revised on 2017. Lymphocyte pct 32.8 % [facility] Comment: Interpretive Data Percent cell count reference ranges are not reported, since discordance with absolute values may lead to misinterpretation of CBC data. Current Interpretive Data was last revised on 2017. Monocyte pct 9.6 % [facility] Comment: Interpretive Data Percent cell count reference ranges are not reported, since discordance with absolute values may lead to misinterpretation of CBC data. Current Interpretive Data was last revised on 2017. Eosinophil pct 5.2 % [facility] Comment: Interpretive Data Percent cell count reference ranges are not reported, since discordance with absolute values may lead to misinterpretation of CBC data. Current Interpretive Data was last revised on 2017. Basophil pct 0.3 % [facility] Comment: Interpretive Data Percent cell count reference ranges are not reported, since discordance with absolute values may lead to misinterpretation of CBC data. Current Interpretive Data was last revised on 2017. Blood 11/03/2024 10:5 9 PM CDT 11/04/2024 12:07 AM CDT us Luciano Hayes MD PhD LAB BLOOD ORDERABLES Final Result [facility] [place] [address] * (ABNORMAL) CBC with auto differential (11/03/2024 10:59 PM CDT) WBC 6.49 3.80 - 9.90 K/cumm Hgb 8.5(L) 11.9 - 15.5 g/dL [facility] Hct 27.2(L) 35.6 - 45.5 % [facility] Plt 219 150 - 400 K/cumm [facility] MPV 11.1 9.1 - 12.3 fL [facility] RBC 3.04(L) 3.90 - 5.20 M/cumm [facility] MCV 89.5 81.3 - 96.4 fL [facility] MCH 28.0 27.1 - 33.3 pg [facility] MCHC 31.3(L) 32.3 - 35.7 g/dL [facility] RDW CV 16.4(H) 11.1 - 14.9 % [facility] RDW SD 53.7(H) 35.7 - 48.1 fL [facility] NRBC abs 0.00 0.00 - 0.01 K/cumm [facility] Blood 11/03/2024 10:5 9 PM CDT 11/04/2024 12:07 AM CDT us Luciano Hayes MD PhD LAB BLOOD ORDERABLES Final Result [facility] [place] [address] * (ABNORMAL) Basic metabolic panel (11/03/2024 10:59 PM CDT) [facility] Sodium 141 135 - 145 mmol/L Potassium, pl 4.3 3.3 - 4.9 mmol/L [facility] Chloride 103 97 - 110 mmol/L [facility] CO2 28 22 - 32 mmol/L [facility] Anion gap 10 2 - 15 mmol/L [facility] BUN 38(H) 6 - 25 mg/dL [facility] Creatinine 6.03(H) 0.60 - 1.10 mg/dL [facility] Glucose 224(H) 70 - 199 mg/dL [facility] Comment: Interpretive Data Fasting glucose >/= [...] 2022. Calcium 7.9(L) 8.5 - 10.3 mg/dL [facility] Blood 11/03/2024 10:5 9 PM CDT 11/04/2024 12:06 AM CDT us Luciano Hayes MD PhD LAB BLOOD ORDERABLES Final Result [facility] [place] [address] * (ABNORMAL) POCT glucose (11/03/2024 8:37 PM CDT) Glucose, POC 254(H) 70 - 199 mg/dL Comment:Glu2: RN/ Notified Glucose comment 1 Glu2: RN/MD Notified [facility] Blood 11/03/2024 8:37 PM CDT 11/03/2024 8:37 PM CDT Dutch Blake MD LAB POCT ORDERABLES - DEVICE Final Result Performing Organization Address [facility] Co de Phone Number [facility] [place] [address] * (ABNORMAL) POCT glucose (11/03/2024 4:17 PM CDT) Glucose, POC 290(H) 70 - 199 mg/dL Blood 11/03/2024 4:17 PM CDT 11/03/2024 4:17 PM CDT Dutch Blake MD LAB POCT ORDERABLES - DEVICE Final Result Performing Organization Address [facility] Co de Phone Number [facility] [place] [address] * (ABNORMAL) POCT glucose (11/03/2024 11:20 AM CDT) Glucose, POC 222(H) 70 - 199 mg/dL Comment:Glu2: RN/ Notified Glucose comment 1 Glu2: RN/ Notified [facility] Blood 11/03/2024 11:2 0 AM CDT 11/03/2024 11:20 AM CDT Dutch Blake MD LAB POCT ORDERABLES - DEVICE Final Result [facility] [place] [address] * (ABNORMAL) POCT glucose (11/03/2024 9:35 AM CDT) Glucose, POC 224(H) 70 - 199 mg/dL Blood 11/03/2024 9:35 AM CDT 11/03/2024 9:35 AM CDT us Dutch Blake MD LAB POCT ORDERABLES - DEVICE Final Result Performing Organization Address [facility] [place] [address] * (ABNORMAL) POCT glucose (11/03/2024 8:21 AM CDT) Glucose, POC 64(L) 70 - 199 mg/dL Blood 11/03/2024 8:21 AM CDT 11/03/2024 8:21 AM CDT us Dutch Blake MD LAB POCT ORDERABLES - DEVICE Final Result Performing Organization Address [facility] Co de Phone Number [facility] [place] [address] * POCT glucose (11/03/2024 7:21 AM CDT) Glucose, POC 125 70 - 199 mg/dL Blood 11/03/2024 7:21 AM CDT 11/03/2024 7:21 AM CDT us Dutch Blake MD LAB POCT ORDERABLES - DEVICE Final Result Performing Organization Address City/[facility] Co de Phone Number [facility] [address] * (ABNORMAL) POCT glucose (11/03/2024 6:49 AM CDT) Glucose, POC 231(H) 70 - 199 mg/dL Blood 11/03/2024 6:49 AM CDT 11/03/2024 6:49 AM CDT Dutch Blake MD LAB POCT ORDERABLES - DEVICE Final Result Performing Organization Address [facility] Co de Phone Number [facility] [place] [address] * (ABNORMAL) POCT glucose (11/03/2024 5:37 AM CDT) Glucose, POC 467(C) 70 - 199 mg/dL Comment: Glu2: RN/MD Notified Critical Value Noted Glucose comment 1 Glu2: RN/MD Notified [facility] Glucose comment 2 Critical Value Noted [facility] Blood 11/03/2024 5:37 AM CDT 11/03/2024 5:37 AM CDT us Dutch Blake MD LAB POCT ORDERABLES - DEVICE Final Result Performing Organization Address [facility] de Phone Number [facility] [place] [address] * (ABNORMAL) POCT glucose (11/03/2024 3:39 AM CDT) Glucose, POC 536(C) 70 - 199 mg/dL Comment: Glu2: Critical Value Noted RN/MD Notified Glucose comment 2 RN/MD Notified [facility] Blood 11/03/2024 3:39 AM CDT 11/03/2024 3:39 AM CDT us Dutch Blake MD LAB POCT ORDERABLES - DEVICE Final Result Performing Organization Address City/[facility] Co de Phone Number [facility] Department [place] [address] * (ABNORMAL) eGFR (11/03/2024 2:25 AM CDT) Pathologist [facility] eGFR 14(L) >=60 mL/min/1. 73 m2 Comment: [...] MD PhD LAB BLOOD ORDERABLES Final Result [facility] Department [place] [address] * Differential, auto (11/03/2024 2:25 AM CDT) Pathologist [facility] Neutrophil abs 3.18 1.50 - 6.50 K/cumm Imm gran abs 0.02 0.00 - 0.10 K/cumm [facility] Lymphocyte abs 1.48 0.80 - 3.30 K/cumm [facility] Monocyte abs 0.57 0.20 - 0.80 K/cumm [facility] Eosinophil abs 0.21 0.00 - 0.50 K/cumm [facility] Basophil abs 0.01 0.00 - 0.10 K/cumm [facility] Neutrophil pct 58.1 % [facility] Comment: Interpretive Data Percent cell count reference ranges are not reported, since discordance with absolute values may lead to misinterpretation of CBC data. Current Interpretive Data was last revised on 2017. Imm gran pct 0.4 % [facility] Comment: Interpretive Data Percent cell count reference ranges are not reported, since discordance with absolute values may lead to misinterpretation of CBC data. Current Interpretive Data was last revised on 2017. Lymphocyte pct 27.1 % [facility] Comment: Interpretive Data Percent cell count reference ranges are not reported, since discordance with absolute values may lead to misinterpretation of CBC data. Current Interpretive Data was last revised on 2017. Monocyte pct 10.4 % [facility] Comment: Interpretive Data Percent cell count reference ranges are not reported, since discordance with absolute values may lead to misinterpretation of CBC data. Current Interpretive Data was last revised on 2017. Eosinophil pct 3.8 % [facility] Comment: Interpretive Data Percent cell count reference ranges are not reported, since discordance with absolute values may lead to misinterpretation of CBC data. Current Interpretive Data was last revised on 2017. Basophil pct 0.2 % [facility] Comment: Interpretive Data Percent cell count reference ranges are not reported, since discordance with absolute values may lead to misinterpretation of CBC data. Current Interpretive Data was last revised on 2017. Blood 11/03/2024 2:25 AM CDT 11/03/2024 4:01 AM CDT Luciano Hayes MD PhD LAB BLOOD ORDERABLES Final Result [facility] Department [place] [address] * Critical Result Callback Chemistry (11/03/2024 2:25 AM CDT) Date Notified [id number] Time Notified 435 HERBER JIMENEZ TestName Glucose [facility] JIMENEZ Called/Read Back Aaron JIMENEZ Credentials RN [facility] Called By [email or web address] [facility] Blood 11/03/2024 2:25 AM CDT 11/03/2024 4:02 AM CDT Luciano Hayes MD PhD LAB BLOOD ORDERABLES Final Result Performing Organization Address [facility] Co de Phone Number [facility] Department [place] [address] * (ABNORMAL) CBC with auto differential (11/03/2024 2:25 AM CDT) Pathologist [facility] WBC 5.47 3.80 - 9.90 K/cumm Hgb 8.9(L) 11.9 - 15.5 g/dL [facility] Hct 28.5(L) 35.6 - 45.5 % [facility] Plt 233 150 - 400 K/cumm [facility] MPV 10.9 9.1 - 12.3 fL [facility] RBC 3.23(L) 3.90 - 5.20 M/cumm [facility] MCV 88.2 81.3 - 96.4 fL [facility] MCH 27.6 27.1 - 33.3 pg [facility] MCHC 31.2(L) 32.3 - 35.7 g/dL [facility] RDW CV 16.4(H) 11.1 - 14.9 % [facility] RDW SD 53.1(H) 35.7 - 48.1 fL [facility] NRBC abs 0.00 0.00 - 0.01 K/cumm [facility] Blood 11/03/2024 2:25 AM CDT 11/03/2024 4:01 AM CDT Luciano Hayes MD PhD LAB BLOOD ORDERABLES Final Result Performing Organization Address City/[facility]/ZIP Co de Phone Number [facility] Department [place] [address] * (ABNORMAL) Basic metabolic panel (11/03/2024 2:25 AM CDT) Sodium 135 135 - 145 mmol/L Comment:Sample investigated and found to be analytically accurate. If results do not match clinical presentation, improper collection (e.g., IV fluid contamination, improper tube type, mislabel) should be considered and re-collection recommended. Potassium, pl 4.7 3.3 - 4.9 mmol/L [facility] Comment:Sample investigated and found to be analytically accurate. If results do not match clinical presentation, improper collection (e.g., IV fluid contamination, improper tube type, mislabel) should be considered and re-collection recommended. Chloride 95(L) 97 - 110 mmol/L [facility] Comment:Sample investigated and found to be analytically accurate. If results do not match clinical presentation, improper collection (e.g., IV fluid contamination, improper tube type, mislabel) should be considered and re-collection recommended. CO2 29 22 - 32 mmol/L [facility] Comment:Sample investigated and found to be analytically accurate. If results do not match clinical presentation, improper collection (e.g., IV fluid contamination, improper tube type, mislabel) should be considered and re-collection recommended. Anion gap 11 2 - 15 mmol/L [facility] Comment:Sample investigated and found to be analytically accurate. If results do not match clinical presentation, improper collection (e.g., IV fluid contamination, improper tube type, mislabel) should be considered and re-collection recommended. BUN 21 6 - 25 mg/dL [facility] Comment:Sample investigated and found to be analytically accurate. If results do not match clinical presentation, improper collection (e.g., IV fluid contamination, improper tube type, mislabel) should be considered and re-collection recommended. Creatinine 4.22(H) 0.60 - 1.10 mg/dL [facility] Comment:Sample investigated and found to be analytically accurate. If results do not match clinical presentation, improper collection (e.g., IV fluid contamination, improper tube type, mislabel) should be considered and re-collection recommended. Glucose 700(C) 70 - 199 mg/dL [facility] Comment: Sample investigated and found to be [...] 2022. Calcium 7.4(L) 8.5 - 10.3 mg/dL [facility] Comment:Sample investigated and found to be analytically accurate. If results do not match clinical presentation, improper collection (e.g., IV fluid contamination, improper tube type, mislabel) should be considered and re-collection recommended. Blood 11/03/2024 2:25 AM CDT 11/03/2024 4:02 AM CDT Luciano Hayes MD PhD LAB BLOOD ORDERABLES Final Result Performing Organization Address City/[facility]/ZIP Co de Phone Number [facility] [place] [address] * (ABNORMAL) POCT glucose (11/03/2024 2:03 AM CDT) [facility] Glucose, POC >600(C) 70 - 199 mg/dL Comment:Glu2: RN/MD Notified Glucose comment 1 Glu2: RN/MD Notified [facility] Blood 11/03/2024 2:03 AM CDT 11/03/2024 2:03 AM CDT Dutch Blake MD LAB POCT ORDERABLES - DEVICE Final Result Performing Organization Address City/[facility]/ZIP Co de Phone Number [facility] [place] [address] * (ABNORMAL) POCT glucose (11/02/2024 8:42 PM CDT) Glucose, POC 204(H) 70 - 199 mg/dL Comment:Glu2: RN/MD Notified Glucose comment 1 Glu2: RN/MD Notified [facility] Blood 11/02/2024 8:42 PM CDT 11/02/2024 8:42 PM CDT us Dutch Blake MD LAB POCT ORDERABLES - DEVICE Final Result Performing Organization Address City/[facility]/ZIP Co de Phone Number [facility] [address] * (ABNORMAL) POCT glucose (11/02/2024 6:19 PM CDT) Glucose, POC 236(H) 70 - 199 mg/dL Blood 11/02/2024 6:19 PM CDT 11/02/2024 6:19 PM CDT Dutch Blake MD LAB POCT ORDERABLES - DEVICE Final Result Performing Organization Address City/[facility] Co de Phone Number [facility] [place] [address] * (ABNORMAL) POCT glucose (11/02/2024 12:54 PM CDT) Glucose, POC 281(H) 70 - 199 mg/dL Blood 11/02/2024 12:5 4 PM CDT 11/02/2024 12:54 PM CDT Dutch Blake MD LAB POCT ORDERABLES - DEVICE Final Result Performing Organization Address City/[facility]/ZIP Co de Phone Number [facility] [place] [address] * Post Dialysis BUN (11/02/2024 11:27 AM CDT) BUN Post 9 6 - 25 mg/dL Blood 11/02/2024 11:2 7 AM CDT 11/02/2024 12:06 PM CDT [facility] LAB BLOOD ORDERABLES Marli l Result Performing Organization Address City/[facility] Co de Phone Number [facility] [place] [address] * (ABNORMAL) Pre Dialysis BUN (11/02/2024 8:37 AM CDT) BUN Pre 37(H) 6 - 25 mg/dL Blood 11/02/2024 8:37 AM CDT 11/02/2024 8:49 AM CDT [facility] LAB BLOOD ORDERABLES Marli l Result Performing Organization Address [facility] Co de Phone Number [facility] [place] [address] * POCT glucose (11/02/2024 7:39 AM CDT) Glucose, POC 198 70 - 199 mg/dL Blood 11/02/2024 7:39 AM CDT 11/02/2024 7:39 AM CDT Dutch Blake MD LAB POCT ORDERABLES - DEVICE Final Result Performing Organization Address City/[facility] [place] [address] * (ABNORMAL) POCT glucose (11/02/2024 3:12 AM CDT) Glucose, POC 268(H) 70 - 199 mg/dL Blood 11/02/2024 3:12 AM CDT 11/02/2024 3:12 AM CDT Dutch Blake MD LAB POCT ORDERABLES - DEVICE Final Result Performing Organization Address [facility] Co de Phone Number [facility] Department [place] [address] * (ABNORMAL) eGFR (11/01/2024 9:45 PM CDT) Pathologist [facility] eGFR 9(L) >=60 mL/min/1. 73 m2 Comment: [...] BLOOD ORDERABLES Final Result Performing Organization Address City/[facility]/ZIP Co de Phone Number [facility] Department [place] [address] * Differential, auto (11/01/2024 9:45 PM CDT) [facility] Neutrophil abs 2.74 1.50 - 6.50 K/cumm Imm gran abs 0.01 0.00 - 0.10 K/cumm [facility] Lymphocyte abs 1.86 0.80 - 3.30 K/cumm [facility] Monocyte abs 0.71 0.20 - 0.80 K/cumm [facility] Eosinophil abs 0.17 0.00 - 0.50 K/cumm [facility] Basophil abs 0.02 0.00 - 0.10 K/cumm [facility] Neutrophil pct 49.6 % [facility] Comment: Interpretive Data Percent cell count reference ranges are not reported, since discordance with absolute values may lead to misinterpretation of CBC data. Current Interpretive Data was last revised on 2017. Imm gran pct 0.2 % [facility] Comment: Interpretive Data Percent cell count reference ranges are not reported, since discordance with absolute values may lead to misinterpretation of CBC data. Current Interpretive Data was last revised on 2017. Lymphocyte pct 33.8 % [facility] Comment: Interpretive Data Percent cell count reference ranges are not reported, since discordance with absolute values may lead to misinterpretation of CBC data. Current Interpretive Data was last revised on 2017. Monocyte pct 12.9 % [facility] Comment: Interpretive Data Percent cell count reference ranges are not reported, since discordance with absolute values may lead to misinterpretation of CBC data. Current Interpretive Data was last revised on 2017. Eosinophil pct 3.1 % [facility] Comment: Interpretive Data Percent cell count reference ranges are not reported, since discordance with absolute values may lead to misinterpretation of CBC data. Current Interpretive Data was last revised on 2017. Basophil pct 0.4 % [facility] Comment: Interpretive Data Percent cell count reference ranges are not reported, since discordance with absolute values may lead to misinterpretation of CBC data. Current Interpretive Data was last revised on 2017. Blood 11/01/2024 9:45 PM CDT 11/01/2024 10:31 PM CDT us Luciano Hayes MD PhD LAB BLOOD ORDERABLES Final Result [facility] [place] [address] * (ABNORMAL) CBC with auto differential (11/01/2024 9:45 PM CDT) [facility] WBC 5.51 3.80 - 9.90 K/cumm Hgb 9.0(L) 11.9 - 15.5 g/dL [facility] Hct 28.1(L) 35.6 - 45.5 % [facility] Plt 286 150 - 400 K/cumm [facility] MPV 11.0 9.1 - 12.3 fL [facility] RBC 3.28(L) 3.90 - 5.20 M/cumm [facility] MCV 85.7 81.3 - 96.4 fL [facility] MCH 27.4 27.1 - 33.3 pg [facility] MCHC 32.0(L) 32.3 - 35.7 g/dL [facility] RDW CV 16.4(H) 11.1 - 14.9 % [facility] RDW SD 50.9(H) 35.7 - 48.1 fL [facility] NRBC abs 0.00 0.00 - 0.01 K/cumm [facility] Blood 11/01/2024 9:45 PM CDT 11/01/2024 10:31 PM CDT Luciano Hayes MD PhD LAB BLOOD ORDERABLES Final Result [facility] [place] [address] * (ABNORMAL) Basic metabolic panel (11/01/2024 9:45 PM CDT) [facility] Sodium 142 135 - 145 mmol/L Potassium, pl 3.9 3.3 - 4.9 mmol/L [facility] Chloride 102 97 - 110 mmol/L [facility] CO2 27 22 - 32 mmol/L [facility] Anion gap 13 2 - 15 mmol/L [facility] BUN 36(H) 6 - 25 mg/dL [facility] Creatinine 6.00(H) 0.60 - 1.10 mg/dL [facility] Glucose 197 70 - 199 mg/dL [facility] Comment: Interpretive Data Fasting glucose >/= [...] 2022. Calcium 6.9(L) 8.5 - 10.3 mg/dL [facility] Blood 11/01/2024 9:45 PM CDT 11/01/2024 10:31 PM CDT us Luciano Hayes MD PhD LAB BLOOD ORDERABLES Final Result Performing Organization Address [facility]/ZIP Co de Phone Number [facility] Department [place] [address] * POCT glucose (11/01/2024 9:30 PM CDT) Glucose, POC 184 70 - 199 mg/dL Blood 11/01/2024 9:30 PM CDT 11/01/2024 9:30 PM CDT Dutch Blake MD LAB POCT ORDERABLES - DEVICE Final Result Performing Organization Address City/[facility]/ZIP Co de Phone Number [facility] Department [place] [address] * POCT glucose (11/01/2024 4:50 PM CDT) Glucose, POC 130 70 - 199 mg/dL Comment:Glu2: RN/MD Notified Glucose comment 1 Glu2: RN/MD Notified [facility] Blood 11/01/2024 4:50 PM CDT 11/01/2024 4:50 PM CDT Dutch Blake MD LAB POCT ORDERABLES - DEVICE Final Result Performing Organization Address [facility] Co de Phone Number [facility] [place] [address] * (ABNORMAL) POCT glucose (11/01/2024 11:49 AM CDT) Glucose, POC 201(H) 70 - 199 mg/dL Comment:Glu2: RN/ Notified Glucose comment 1 Glu2: RN/ Notified [facility] Blood 11/01/2024 11:4 9 AM CDT 11/01/2024 11:49 AM CDT Dutch Blake MD LAB POCT ORDERABLES - DEVICE Final Result Performing Organization Address [facility] de Phone Number [facility] [place] [address] * (ABNORMAL) POCT glucose (11/01/2024 8:12 AM CDT) Glucose, POC 338(H) 70 - 199 mg/dL Comment:Glu2: RN/ Notified Glucose comment 1 Glu2: RN/ Notified [facility] Blood 11/01/2024 8:12 AM CDT 11/01/2024 8:12 AM CDT Dutch Blake MD LAB POCT ORDERABLES - DEVICE Final Result Performing Organization Address [facility] Co de Phone Number [facility] [address] * (ABNORMAL) POCT glucose (11/01/2024 1:38 AM CDT) Glucose, POC 232(H) 70 - 199 mg/dL Comment:Glu2: KADY/ Notified Glucose comment 1 Glu2: RN/ Notified [facility] Blood 11/01/2024 1:38 AM CDT 11/01/2024 1:38 AM CDT Dutch Blake MD LAB POCT ORDERABLES - DEVICE Final Result Performing Organization Address [facility] Co de Phone Number [facility] [place] [address] * (ABNORMAL) eGFR (10/31/2024 11:30 PM CDT) [...] BLOOD ORDERABLES Final Result Performing Organization Address City/[facility]/ZIP Co de Phone Number [facility] [place] [address] * (ABNORMAL) Differential, auto (10/31/2024 11:30 PM CDT) Neutrophil abs 7.04(H) 1.50 - 6.50 K/cumm Imm gran abs 0.03 0.00 - 0.10 K/cumm [facility] Lymphocyte abs 0.83 0.80 - 3.30 K/cumm [facility] Monocyte abs 0.28 0.20 - 0.80 K/cumm [facility] Eosinophil abs 0.09 0.00 - 0.50 K/cumm [facility] Basophil abs 0.02 0.00 - 0.10 K/cumm [facility] Neutrophil pct 84.9 % [facility] Comment: Interpretive Data Percent cell count reference ranges are not reported, since discordance with absolute values may lead to misinterpretation of CBC data. Current Interpretive Data was last revised on 2017. Imm gran pct 0.4 % [facility] Comment: Interpretive Data Percent cell count reference ranges are not reported, since discordance with absolute values may lead to misinterpretation of CBC data. Current Interpretive Data was last revised on 2017. Lymphocyte pct 10.0 % [facility] Comment: Interpretive Data Percent cell count reference ranges are not reported, since discordance with absolute values may lead to misinterpretation of CBC data. Current Interpretive Data was last revised on 2017. Monocyte pct 3.4 % [facility] Comment: Interpretive Data Percent cell count reference ranges are not reported, since discordance with absolute values may lead to misinterpretation of CBC data. Current Interpretive Data was last revised on 2017. Eosinophil pct 1.1 % [facility] Comment: Interpretive Data Percent cell count reference ranges are not reported, since discordance with absolute values may lead to misinterpretation of CBC data. Current Interpretive Data was last revised on 2017. Basophil pct 0.2 % [facility] Comment: Interpretive Data Percent cell count reference ranges are not reported, since discordance with absolute values may lead to misinterpretation of CBC data. Current Interpretive Data was last revised on 2017. Blood 10/31/2024 11:3 0 PM CDT 10/31/2024 11:57 PM CDT Luciano Hayes MD PhD LAB BLOOD ORDERABLES Final Result [facility] [place] [address] * (ABNORMAL) CBC with auto differential (10/31/2024 11:30 PM CDT) [facility] WBC 8.29 3.80 - 9.90 K/cumm Hgb 10.4(L) 11.9 - 15.5 g/dL [facility] Hct 31.4(L) 35.6 - 45.5 % [facility] Plt 304 150 - 400 K/cumm [facility] MPV 11.2 9.1 - 12.3 fL [facility] RBC 3.72(L) 3.90 - 5.20 M/cumm [facility] MCV 84.4 81.3 - 96.4 fL [facility] [facility] MCH 28.0 27.1 - 33.3 pg [facility] MCHC 33.1 32.3 - 35.7 g/dL [facility] RDW CV 16.2(H) 11.1 - 14.9 % [facility] RDW SD 50.7(H) 35.7 - 48.1 fL [facility] NRBC abs 0.00 0.00 - 0.01 K/cumm [facility] Blood 10/31/2024 11:3 0 PM CDT 10/31/2024 11:57 PM CDT Luciano Hayes MD PhD LAB BLOOD ORDERABLES Final Result [facility] Department [place] [address] * (ABNORMAL) Basic metabolic panel (10/31/2024 11:30 PM CDT) [facility] Sodium 137 135 - 145 mmol/L Potassium, pl 3.8 3.3 - 4.9 mmol/L [facility] Chloride 97 97 - 110 mmol/L [facility] CO2 25 22 - 32 mmol/L [facility] Anion gap 15 2 - 15 mmol/L [facility] BUN 20 6 - 25 mg/dL [facility] Creatinine 4.28(H) 0.60 - 1.10 mg/dL [facility] Glucose 230(H) 70 - 199 mg/dL [facility] Comment: Interpretive Data Fasting glucose >/= [...] 2022. Calcium 7.8(L) 8.5 - 10.3 mg/dL [facility] Blood 10/31/2024 11:3 0 PM CDT 10/31/2024 11:56 PM CDT us Luciano Hayes MD PhD LAB BLOOD ORDERABLES Final Result [facility] Department [place] [facility] [place] [address] * POCT glucose (10/31/2024 8:07 PM CDT) Glucose, POC 191 70 - 199 mg/dL Blood 10/31/2024 8:07 PM CDT 10/31/2024 8:07 PM CDT us Dutch Blake MD LAB POCT ORDERABLES - DEVICE Final Result [facility] [place] [address] * POCT glucose (10/31/2024 5:26 PM CDT) Glucose, POC 108 70 - 199 mg/dL Blood 10/31/2024 5:26 PM CDT 10/31/2024 5:26 PM CDT us Dutch Blake MD LAB POCT ORDERABLES - DEVICE Final Result Performing Organization Address [facility] Co de Phone Number [facility] [place] [address] * POCT glucose (10/31/2024 1:18 PM CDT) Glucose, POC 96 70 - 199 mg/dL Blood 10/31/2024 1:18 PM CDT 10/31/2024 1:18 PM CDT us Dutch Blake MD LAB POCT ORDERABLES - DEVICE Final Result Performing Organization Address [facility] de Phone Number [facility] [place] [address] * Hepatitis B Surface Antigen Blood (10/31/2024 9:31 AM CDT) HepBsAg Nonreactive Nonreactive Blood 10/31/2024 9:31 AM CDT 10/31/2024 9:57 AM CDT us Francisco Middleton DO LAB MICROBIOLOGY - GENERA L ORDERABLES Final Result Performing Organization Address [facility] [place] [address] * POCT glucose (10/31/2024 7:50 AM CDT) Glucose, POC 79 70 - 199 mg/dL Comment:Glu2: RN/MD Notified Glucose comment 1 Glu2: RN/MD Notified [facility] Blood 10/31/2024 7:50 AM CDT 10/31/2024 7:50 AM CDT us Dutch Blake MD LAB POCT ORDERABLES - DEVICE Final Result [facility] [place] [address] * POCT glucose (10/31/2024 1:56 AM CDT) Glucose, POC 87 70 - 199 mg/dL Blood 10/31/2024 1:56 AM CDT 10/31/2024 1:56 AM CDT us Dutch Blake MD LAB POCT ORDERABLES - DEVICE Final Result Performing Organization Address [facility] de Phone Number [facility] [place] [address] * (ABNORMAL) eGFR (10/30/2024 9:57 PM CDT) [...] PhD LAB BLOOD ORDERABLES Final Result [facility] [place] [address] * Differential, auto (10/30/2024 9:57 PM CDT) Neutrophil abs 2.96 1.50 - 6.50 K/cumm Imm gran abs 0.02 0.00 - 0.10 K/cumm [facility] Lymphocyte abs 2.18 0.80 - 3.30 K/cumm [facility] Monocyte abs 0.55 0.20 - 0.80 K/cumm [facility] Eosinophil abs 0.29 0.00 - 0.50 K/cumm [facility] Basophil abs 0.03 0.00 - 0.10 K/cumm [facility] Neutrophil pct 49.1 % [facility] Comment: Interpretive Data Percent cell count reference ranges are not reported, since discordance with absolute values may lead to misinterpretation of CBC data. Current Interpretive Data was last revised on 2017. Imm gran pct 0.3 % [facility] Comment: Interpretive Data Percent cell count reference ranges are not reported, since discordance with absolute values may lead to misinterpretation of CBC data. Current Interpretive Data was last revised on 2017. Lymphocyte pct 36.2 % [facility] Comment: Interpretive Data Percent cell count reference ranges are not reported, since discordance with absolute values may lead to misinterpretation of CBC data. Current Interpretive Data was last revised on 2017. Monocyte pct 9.1 % [facility] Comment: Interpretive Data Percent cell count reference ranges are not reported, since discordance with absolute values may lead to misinterpretation of CBC data. Current Interpretive Data was last revised on 2017. Eosinophil pct 4.8 % [facility] Comment: Interpretive Data Percent cell count reference ranges are not reported, since discordance with absolute values may lead to misinterpretation of CBC data. Current Interpretive Data was last revised on 2017. Basophil pct 0.5 % [facility] Comment: Interpretive Data Percent cell count reference ranges are not reported, since discordance with absolute values may lead to misinterpretation of CBC data. Current Interpretive Data was last revised on 2017. Blood 10/30/2024 9:57 PM CDT 10/30/2024 10:39 PM CDT Luciano Hayes MD PhD LAB BLOOD ORDERABLES Final Result Performing Organization Address City/[facility]/ZIP Co de Phone Number [facility] [place] [address] * Beta-hydroxybutyrate (10/30/2024 9:57 PM CDT) [facility] Beta-Hydroxybut yrate 0.1 0.0 - 0.5 mmol/L Blood 10/30/2024 9:57 PM CDT 10/30/2024 10:28 PM CDT Luciano Hayes MD PhD LAB BLOOD ORDERABLES Edited Result - Final Performing Organization Address City/[facility] Co de Phone Number [facility] [place] [address] * (ABNORMAL) CBC with auto differential (10/30/2024 9:57 PM CDT) [facility] WBC 6.03 3.80 - 9.90 K/cumm Hgb 8.9(L) 11.9 - 15.5 g/dL [facility] Hct 27.6(L) 35.6 - 45.5 % [facility] Plt 277 150 - 400 K/cumm [facility] MPV 11.0 9.1 - 12.3 fL [facility] RBC 3.17(L) 3.90 - 5.20 M/cumm [facility] MCV 87.1 81.3 - 96.4 fL [facility] MCH 28.1 27.1 - 33.3 pg [facility] MCHC 32.2(L) 32.3 - 35.7 g/dL [facility] RDW CV 16.4(H) 11.1 - 14.9 % [facility] RDW SD 52.3(H) 35.7 - 48.1 fL [facility] NRBC abs 0.00 0.00 - 0.01 K/cumm [facility] Blood 10/30/2024 9:57 PM CDT 10/30/2024 10:39 PM CDT us Luciano Hayes MD PhD LAB BLOOD ORDERABLES Final Result [facility] Department [place] [address] * (ABNORMAL) Basic metabolic panel (10/30/2024 9:57 PM CDT) Pathologist [facility] Sodium 138 135 - 145 mmol/L Potassium, pl 4.2 3.3 - 4.9 mmol/L [facility] Chloride 100 97 - 110 mmol/L [facility] CO2 26 22 - 32 mmol/L [facility] Anion gap 12 2 - 15 mmol/L [facility] BUN 45(H) 6 - 25 mg/dL [facility] Creatinine 6.91(H) 0.60 - 1.10 mg/dL [facility] Glucose 252(H) 70 - 199 mg/dL [facility] Comment: Interpretive Data Fasting glucose >/= [...] 2022. Calcium 8.1(L) 8.5 - 10.3 mg/dL [facility] Blood 10/30/2024 9:57 PM CDT 10/30/2024 10:39 PM CDT us Luciano Hayes MD PhD LAB BLOOD ORDERABLES Final Result [facility] [place] [address] * (ABNORMAL) POCT glucose (10/30/2024 8:29 PM CDT) Glucose, POC 361(H) 70 - 199 mg/dL Comment:Glu2: RN/MD Notified Glucose comment 1 Glu2: RN/MD Notified [facility] Blood 10/30/2024 8:29 PM CDT 10/30/2024 8:29 PM CDT us Dennis Cadet MD LAB POCT ORDERABLES - DEV ICE Final Result Performing Organization Address [facility] [place] [address] * (ABNORMAL) POCT glucose (10/30/2024 5:10 PM CDT) Glucose, POC 292(H) 70 - 199 mg/dL Blood 10/30/2024 5:10 PM CDT 10/30/2024 5:10 PM CDT us Dennis Cadet MD LAB POCT ORDERABLES - DEV ICE Final Result Performing Organization Address [facility] Co de Phone Number [facility] [place] [address] * (ABNORMAL) POCT glucose (10/30/2024 1:08 PM CDT) Glucose, POC 251(H) 70 - 199 mg/dL Blood 10/30/2024 1:08 PM CDT 10/30/2024 1:08 PM CDT us Luciano Hayes MD PhD LAB POCT ORDERABLES - DEVIC E Final Result Performing Organization Address City/[facility]/ZIP Co de Phone Number [facility] [place] [address] * (ABNORMAL) POCT glucose (10/30/2024 11:19 AM CDT) Glucose, POC 270(H) 70 - 199 mg/dL Blood 10/30/2024 11:1 9 AM CDT 10/30/2024 11:19 AM CDT Luciano Hayes MD PhD LAB POCT ORDERABLES - DEVIC E Final Result Performing Organization Address City/[facility]/ZIP Co de Phone Number [facility] [place] [address] * (ABNORMAL) eGFR (10/30/2024 9:10 AM CDT) [...] LAB BLOOD ORDERABLES Fi nal Result [facility] Department [place] [address] * (ABNORMAL) Beta-hydroxybutyrate (10/30/2024 9:10 AM CDT) [facility] Beta-Hydroxybut yrate 0.6(H) 0.0 - 0.5 mmol/L Blood 10/30/2024 9:10 AM CDT 10/30/2024 9:23 AM CDT us Dennis Cadet MD LAB BLOOD ORDERABLES Marli l Result [facility] [place] [address] * (ABNORMAL) Basic metabolic panel (10/30/2024 9:10 AM CDT) [facility] Sodium 139 135 - 145 mmol/L Potassium, pl 4.7 3.3 - 4.9 mmol/L [facility] Comment:Hemolyzed; Potassium value may be falsely elevated by as much as 0.6-1.0 mmol/L. Suggest redraw and reanalysis. Chloride 102 97 - 110 mmol/L [facility] CO2 24 22 - 32 mmol/L [facility] Anion gap 13 2 - 15 mmol/L [facility] BUN 37(H) 6 - 25 mg/dL [facility] Creatinine 5.68(H) 0.60 - 1.10 mg/dL [facility] Glucose 214(H) 70 - 199 mg/dL [facility] Comment: Interpretive Data Fasting glucose >/= [...] 2022. Calcium 7.9(L) 8.5 - 10.3 mg/dL [facility] Blood 10/30/2024 9:10 AM CDT 10/30/2024 9:27 AM CDT Crystal Schuster MD LAB BLOOD ORDERABLES Fi nal Result Performing Organization Address City/[facility] Co de Phone Number [facility] [place] [address] * POCT glucose (10/30/2024 8:07 AM CDT) Glucose, POC 172 70 - 199 mg/dL Blood 10/30/2024 8:07 AM CDT 10/30/2024 8:07 AM CDT Luciano Hayes MD PhD LAB POCT ORDERABLES - DEVIC E Final Result Performing Organization Address City/[facility] Co de Phone Number [facility] [place] [address] * POCT glucose (10/30/2024 6:31 AM CDT) Glucose, POC 173 70 - 199 mg/dL Blood 10/30/2024 6:31 AM CDT 10/30/2024 6:31 AM CDT Dennis Cadet MD LAB POCT ORDERABLES - DEV ICE Final Result [facility] [address] * POCT glucose (10/30/2024 4:02 AM CDT) Glucose, POC 88 70 - 199 mg/dL Blood 10/30/2024 4:02 AM CDT 10/30/2024 4:02 AM CDT us Dennis Cadet MD LAB POCT ORDERABLES - DEV ICE Final Result [facility] [place] [address] * POCT glucose (10/30/2024 2:30 AM CDT) Glucose, POC 95 70 - 199 mg/dL Blood 10/30/2024 2:30 AM CDT 10/30/2024 2:30 AM CDT Dennis Cadet MD LAB POCT ORDERABLES - DEV ICE Final Result Performing Organization Address [facility] Co de Phone Number [facility] [place] [address] * (ABNORMAL) eGFR (10/30/2024 2:24 AM CDT) [...] MD LAB BLOOD ORDERABLES Fi nal Result [facility] [place] [address] * (ABNORMAL) Differential, auto (10/30/2024 2:24 AM CDT) Neutrophil abs 7.45(H) 1.50 - 6.50 K/cumm Imm gran abs 0.03 0.00 - 0.10 K/cumm [facility] Lymphocyte abs 2.30 0.80 - 3.30 K/cumm [facility] Monocyte abs 0.93(H) 0.20 - 0.80 K/cumm [facility] Eosinophil abs 0.09 0.00 - 0.50 K/cumm [facility] Basophil abs 0.03 0.00 - 0.10 K/cumm [facility] Neutrophil pct 68.8 % [facility] Comment: Interpretive Data Percent cell count reference ranges are not reported, since discordance with absolute values may lead to misinterpretation of CBC data. Current Interpretive Data was last revised on 2017. Imm gran pct 0.3 % [facility] Comment: Interpretive Data Percent cell count reference ranges are not reported, since discordance with absolute values may lead to misinterpretation of CBC data. Current Interpretive Data was last revised on 2017. Lymphocyte pct 21.2 % [facility] Comment: Interpretive Data Percent cell count reference ranges are not reported, since discordance with absolute values may lead to misinterpretation of CBC data. Current Interpretive Data was last revised on 2017. Monocyte pct 8.6 % [facility] Comment: Interpretive Data Percent cell count reference ranges are not reported, since discordance with absolute values may lead to misinterpretation of CBC data. Current Interpretive Data was last revised on 2017. Eosinophil pct 0.8 % [facility] Comment: Interpretive Data Percent cell count reference ranges are not reported, since discordance with absolute values may lead to misinterpretation of CBC data. Current Interpretive Data was last revised on 2017. Basophil pct 0.3 % [facility] Comment: Interpretive Data Percent cell count reference ranges are not reported, since discordance with absolute values may lead to misinterpretation of CBC data. Current Interpretive Data was last revised on 2017. Blood 10/30/2024 2:24 AM CDT 10/30/2024 2:44 AM CDT Sandra Eddy MD LAB BLOOD ORDERABLES Final Resul t Performing Organization Address [facility] Co de Phone Number [facility] Department [place] [address] * (ABNORMAL) CBC with auto differential (10/30/2024 2:24 AM CDT) WBC 10.83(H) 3.80 - 9.90 K/cumm Hgb 9.3(L) 11.9 - 15.5 g/dL [facility] Hct 28.7(L) 35.6 - 45.5 % [facility] Plt 292 150 - 400 K/cumm [facility] MPV 11.0 9.1 - 12.3 fL [facility] RBC 3.34(L) 3.90 - 5.20 M/cumm [facility] MCV 85.9 81.3 - 96.4 fL [facility] MCH 27.8 27.1 - 33.3 pg [facility] MCHC 32.4 32.3 - 35.7 g/dL [facility] RDW CV 16.9(H) 11.1 - 14.9 % [facility] RDW SD 52.8(H) 35.7 - 48.1 fL [facility] NRBC abs 0.00 0.00 - 0.01 K/cumm [facility] Blood 10/30/2024 2:24 AM CDT 10/30/2024 2:44 AM CDT Sandra Eddy MD LAB BLOOD ORDERABLES Final Resul t Performing Organization Address [facility] Co de Phone Number [facility] Department [place] [address] * (ABNORMAL) Hemoglobin A1c (10/30/2024 2:24 AM CDT) Hgb A1C 8.8(H) 4.0 - 5.6 % Estimated Average Glucose 206 mg/dL [facility] Comment: The ADA recommends reporting an [...] ORDERABLES Marli l Result Performing Organization Address [facility] de Phone Number [facility] Department [place] [address] * Blood gas, venous (10/30/2024 2:24 AM CDT) pH, Venous 7.34 7.32 - 7.43 PCO2, Venous 50 40 - 50 mmHg [facility] PO2, Venous 41 mmHg [facility] Comment: Interpretive Data No Reference Range Established Current Interpretive Data was last revised on 2017. HCO3 Venous, Calculated 28 20 - 30 mmol/L [facility] BE, venous 1 mmol/L [facility] Comment: Interpretive Data No Reference Range Established Current Interpretive Data was last revised on 2017. Blood 10/30/2024 2:24 AM CDT 10/30/2024 2:31 AM CDT Crystal Schuster MD LAB BLOOD ORDERABLES Fi nal Result Performing Organization Address [facility] Co de Phone Number [facility] Department [place] [address] * (ABNORMAL) Basic metabolic panel (10/30/2024 2:24 AM CDT) Sodium 143 135 - 145 mmol/L Potassium, pl 3.6 3.3 - 4.9 mmol/L [facility] Chloride 106 97 - 110 mmol/L [facility] CO2 28 22 - 32 mmol/L [facility] Anion gap 9 2 - 15 mmol/L [facility] BUN 35(H) 6 - 25 mg/dL [facility] Creatinine 5.56(H) 0.60 - 1.10 mg/dL [facility] Glucose 112 70 - 199 mg/dL [facility] Comment: Interpretive Data Fasting glucose >/= [...] 2022. Calcium 7.8(L) 8.5 - 10.3 mg/dL [facility] Blood 10/30/2024 2:24 AM CDT 10/30/2024 2:43 AM CDT us Crystal Schuster MD LAB BLOOD ORDERABLES Fi nal Result Performing Organization Address City/[facility]/ZIP Co de Phone Number [facility] [place] [address] * POCT glucose (10/30/2024 12:01 AM CDT) Glucose, POC 181 70 - 199 mg/dL Blood 10/30/2024 12:0 1 AM CDT 10/30/2024 12:01 AM CDT us Dennis Cadet MD LAB POCT ORDERABLES - DEV ICE Final Result Performing Organization Address [facility]/ZIP Co de Phone Number [facility] [place] [address] * (ABNORMAL) POCT glucose (10/29/2024 10:01 PM CDT) Glucose, POC 297(H) 70 - 199 mg/dL Blood 10/29/2024 10:0 1 PM CDT 10/29/2024 10:01 PM CDT Dennis Cadet MD LAB POCT ORDERABLES - DEV ICE Final Result [facility] [place] [address] * (ABNORMAL) POCT glucose (10/29/2024 8:26 PM CDT) [facility] Glucose, POC 290(H) 70 - 199 mg/dL Blood 10/29/2024 8:26 PM CDT 10/29/2024 8:26 PM CDT Dennis Cadet MD LAB POCT ORDERABLES - DEV ICE Final Result [facility] [place] [address] * (ABNORMAL) eGFR (10/29/2024 8:13 PM CDT) [facility] eGFR 11(L) >=60 mL/min/1. 73 m2 Comment: [...] MD LAB BLOOD ORDERABLES Final R esult [facility] [place] [address] * Lipid panel (10/29/2024 8:13 PM CDT) [...] revised on 2017. HDL 49 >=40 mg/dL [facility] Comment: Interpretive Data Ages < or [...] on 2017. LDL, calculated 58 <=129 mg/dL [facility] Comment: Interpretive Data Ages < or = [...] revised on 2023. Non-HDL Cholesterol 75 mg/dL [facility] Comment: Interpretive Data Ages < or [...] last revised on 2017. Chol/HDL ratio 3 [facility] Blood 10/29/2024 8:13 PM CDT 10/29/2024 8:27 PM CDT us Dennis Cadet MD LAB BLOOD ORDERABLES Marli l Result Performing Organization Address City/[facility]/ZIP Co de Phone Number [facility] [place] [address] * (ABNORMAL) Basic metabolic panel (10/29/2024 8:13 PM CDT) Pathologist [facility] Sodium 143 135 - 145 mmol/L Potassium, pl 4.1 3.3 - 4.9 mmol/L [facility] Chloride 102 97 - 110 mmol/L [facility] CO2 23 22 - 32 mmol/L [facility] Anion gap 18(H) 2 - 15 mmol/L [facility] BUN 31(H) 6 - 25 mg/dL [facility] Creatinine 5.00(H) 0.60 - 1.10 mg/dL [facility] Glucose 266(H) 70 - 199 mg/dL [facility] Comment: Interpretive Data Fasting glucose >/= [...] 2022. Calcium 7.7(L) 8.5 - 10.3 mg/dL [facility] Blood 10/29/2024 8:13 PM CDT 10/29/2024 8:27 PM CDT us Ari Us MD LAB BLOOD ORDERABLES Final R esult Performing Organization Address [facility]/ZIP Co de Phone Number [facility] [place] [address] * (ABNORMAL) POCT glucose (10/29/2024 4:00 PM CDT) Glucose, POC 290(H) 70 - 199 mg/dL Comment:Glu2: RN/ Notified Glucose comment 1 Glu2: RN/MD Notified [facility] Blood 10/29/2024 4:00 PM CDT 10/29/2024 4:00 PM CDT us Ciaran Medina MD LAB POCT ORDERABLES - DEVICE Final Result Performing Organization Address [facility] Co de Phone Number [facility] [place] [address] * (ABNORMAL) POCT glucose (10/29/2024 12:58 PM CDT) Glucose, POC 299(H) 70 - 199 mg/dL Blood 10/29/2024 12:5 8 PM CDT 10/29/2024 12:58 PM CDT us Nathan Moore MD LAB POCT ORDERABLES - DE VICE Final Result Performing Organization Address [facility] Co de Phone Number [facility] [place] [address] * (ABNORMAL) POCT glucose (10/29/2024 11:55 AM CDT) Glucose, POC 309(H) 70 - 199 mg/dL Comment:Glu2: RN/ Notified Glucose comment 1 Glu2: RN/ Notified [facility] Blood 10/29/2024 11:5 5 AM CDT 10/29/2024 11:55 AM CDT us Nathan Moore MD LAB POCT ORDERABLES - DE VICE Final Result [facility] [place] [address] * XR Chest PA Lateral 2 Views [...] * POCT lactate (10/29/2024 11:14 AM CDT) [facility] Lactate POC i-STAT 1.6 0.7 - 2.0 mmol/L Blood 10/29/2024 11:1 4 AM CDT 10/29/2024 11:14 AM CDT us Nathan Moore MD LAB POCT ORDERABLES - DE VICE Final Result Performing Organization Address City/[facility]/ZIP Co de Phone Number [facility] [place] [address] * Potassium, whole blood (10/29/2024 11:03 AM CDT) [facility] Potassium, bld 4.2 3.3 - 4.9 mmol/L Blood 10/29/2024 11:0 3 AM CDT 10/29/2024 11:15 AM CDT us Ari Us MD LAB BLOOD ORDERABLES Final R esult Performing Organization Address City/[facility]/ZIP Co de Phone Number [facility] [place] [address] * (ABNORMAL) eGFR (10/29/2024 11:03 AM CDT) [facility] eGFR 12(L) >=60 mL/min/1. 73 m2 Comment: [...] MD LAB BLOOD ORDERABLES Final R esult [facility] [place] [address] * (ABNORMAL) Differential, auto (10/29/2024 11:03 AM CDT) Neutrophil abs 8.42(H) 1.50 - 6.50 K/cumm Imm gran abs 0.04 0.00 - 0.10 K/cumm [facility] Lymphocyte abs 1.17 0.80 - 3.30 K/cumm [facility] Monocyte abs 0.52 0.20 - 0.80 K/cumm [facility] Eosinophil abs 0.17 0.00 - 0.50 K/cumm [facility] Basophil abs 0.04 0.00 - 0.10 K/cumm [facility] Neutrophil pct 81.3 % [facility] Comment: Interpretive Data Percent cell count reference ranges are not reported, since discordance with absolute values may lead to misinterpretation of CBC data. Current Interpretive Data was last revised on 2017. Imm gran pct 0.4 % [facility] Comment: Interpretive Data Percent cell count reference ranges are not reported, since discordance with absolute values may lead to misinterpretation of CBC data. Current Interpretive Data was last revised on 2017. Lymphocyte pct 11.3 % [facility] Comment: Interpretive Data Percent cell count reference ranges are not reported, since discordance with absolute values may lead to misinterpretation of CBC data. Current Interpretive Data was last revised on 2017. Monocyte pct 5.0 % [facility] Comment: Interpretive Data Percent cell count reference ranges are not reported, since discordance with absolute values may lead to misinterpretation of CBC data. Current Interpretive Data was last revised on 2017. Eosinophil pct 1.6 % [facility] Comment: Interpretive Data Percent cell count reference ranges are not reported, since discordance with absolute values may lead to misinterpretation of CBC data. Current Interpretive Data was last revised on 2017. Basophil pct 0.4 % [facility] Comment: Interpretive Data Percent cell count reference ranges are not reported, since discordance with absolute values may lead to misinterpretation of CBC data. Current Interpretive Data was last revised on 2017. Blood 10/29/2024 11:0 3 AM CDT 10/29/2024 11:21 AM CDT us Nathan Moore MD LAB BLOOD ORDERABLES Fin al Result [facility] [place] [address] * (ABNORMAL) CBC with auto differential (10/29/2024 11:03 AM CDT) WBC 10.36(H) 3.80 - 9.90 K/cumm Hgb 11.5(L) 11.9 - 15.5 g/dL [facility] Hct 35.0(L) 35.6 - 45.5 % [facility] Plt 345 150 - 400 K/cumm [facility] MPV 11.2 9.1 - 12.3 fL [facility] RBC 4.14 3.90 - 5.20 M/cumm [facility] MCV 84.5 81.3 - 96.4 fL [facility] MCH 27.8 27.1 - 33.3 pg [facility] MCHC 32.9 32.3 - 35.7 g/dL [facility] RDW CV 16.6(H) 11.1 - 14.9 % [facility] RDW SD 50.8(H) 35.7 - 48.1 fL [facility] NRBC abs 0.00 0.00 - 0.01 K/cumm [facility] Blood 10/29/2024 11:0 3 AM CDT 10/29/2024 11:21 AM CDT Nathan Moore MD LAB BLOOD ORDERABLES Fin al Result Performing Organization Address City/[facility] Co de Phone Number [facility] [place] [address] * Lipase (10/29/2024 11:03 AM CDT) Pathologist [facility] Lipase 49 10 - 99 Units/L Blood 10/29/2024 11:0 3 AM CDT 10/29/2024 11:21 AM CDT Ari Us MD LAB BLOOD ORDERABLES Final R esult Performing Organization Address [facility] [place] [address] * (ABNORMAL) Hemoglobin A1c (10/29/2024 11:03 AM CDT) [facility] Hgb A1C 9.1(H) 4.0 - 5.6 % Estimated Average Glucose 214 mg/dL [facility] Comment: The ADA recommends reporting an [...] ORDERABLES Marli l Result Performing Organization Address [facility] Co de Phone Number [facility] [place] [address] * Blood gas, venous (10/29/2024 11:03 AM CDT) [facility] pH, Venous 7.35 7.32 - 7.43 PCO2, Venous 50 40 - 50 mmHg [facility] PO2, Venous 41 mmHg [facility] Comment: Interpretive Data No Reference Range Established Current Interpretive Data was last revised on 2017. HCO3 Venous, Calculated 28 20 - 30 mmol/L [facility] BE, venous 1 mmol/L [facility] Comment: Interpretive Data No Reference Range Established Current Interpretive Data was last revised on 2017. Blood 10/29/2024 11:0 3 AM CDT 10/29/2024 11:15 AM CDT us Ari Us MD LAB BLOOD ORDERABLES Final R esult [facility] [place] [address] * (ABNORMAL) Hepatic function panel (10/29/2024 11:03 AM CDT) Bilirubin, total 0.4 0.1 - 1.2 mg/dL Bilirubin, direct <0.2 0.1 - 0.3 mg/dL [facility] Protein, pl 8.5 6.5 - 8.5 g/dL [facility] Albumin 4.4 3.5 - 5.0 g/dL [facility] Alk phos 336(H) 40 - 130 Units/L [facility] ALT 42 7 - 45 Units/L [facility] AST 39 10 - 45 Units/L [facility] Blood 10/29/2024 11:0 3 AM CDT 10/29/2024 11:21 AM CDT us Ari Us MD LAB BLOOD ORDERABLES Final R esult [facility] Department [place] [address] * (ABNORMAL) Basic metabolic panel (10/29/2024 11:03 AM CDT) Sodium 138 135 - 145 mmol/L Potassium, pl 4.0 3.3 - 4.9 mmol/L [facility] Chloride 94(L) 97 - 110 mmol/L [facility] CO2 26 22 - 32 mmol/L [facility] Anion gap 18(H) 2 - 15 mmol/L [facility] BUN 28(H) 6 - 25 mg/dL [facility] Creatinine 4.75(H) 0.60 - 1.10 mg/dL [facility] Glucose 358(H) 70 - 199 mg/dL [facility] Comment: Interpretive Data Fasting glucose >/= [...] 2022. Calcium 8.5 8.5 - 10.3 mg/dL [facility] Blood 10/29/2024 11:0 3 AM CDT 10/29/2024 11:21 AM CDT us Ari Us MD LAB BLOOD ORDERABLES Final R esult [facility] [place] [address] * (ABNORMAL) POCT ketone, blood (10/29/2024 10:22 AM CDT) Beta-Hydroxybut yrate, POC 1.2(H) 0.0 - 0.5 mmol/L Blood 10/29/2024 10:2 2 AM CDT 10/29/2024 10:22 AM CDT us Nathan Moore MD LAB POCT ORDERABLES - DE VICE Final Result [facility] [place] [address] * (ABNORMAL) POCT glucose (10/29/2024 10:21 AM CDT) Glucose, POC 274(H) 70 - 199 mg/dL Blood 10/29/2024 10:2 1 AM CDT 10/29/2024 10:21 AM CDT us Nathan Moore MD LAB POCT ORDERABLES - DE VICE Final Result [facility] [place] [address] * XR Abdomen 1 View AP (10/27/2024 [...] by: Rony Rodriguez M.D. us Micaela Suero ROCK BREAKER IMG XR PROCEDURES Final Re sult * TSH (01/09/2024 3:52 PM CDT) Thyroid Stimulating Hormone 2.46 0.30 - 4.20 mcIUnit/mL Blood 01/09/2024 3:52 PM CDT 01/09/2024 4:46 PM CDT us Sailaja Ramos MD LAB BLOOD ORDERABLES Final Result Performing Organization Address City/State/[facility] Co de Phone Number [facility] Department [place] [address] * Hepatitis panel, acute Blood (12/24/2023 7:26 AM CDT) Pathologist [facility] Hep A IgM Nonreactive Nonreactive Comment: Interpretive Data: If Hep A IgM Ab is reported as Equivocal, a new sample should be drawn in two weeks for testing. Current interpretive data was last revised on 19. Hep B core IgM Nonreactive Nonreactive [facility] Comment: Interpretive Data If HepB Core IgM Ab is reported as Equivocal, a new sample should be drawn in two weeks for testing. Current interpretive data was last revised on 19. Hep C Ab Nonreactive Nonreactive [facility] Comment: Antibodies to HCV not detected. 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 Source: [facility]. 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 Source: [facility]. Kleb pneumo [facility] 10/31/2024 10/31/2024 Insurance MEDICARE [facility] Address: [address] [address] [place] [address] [employer] MED[employer] [address] Advance Directives For more information, please contact: [phone] * Full Code (Latest Code Status on [...] 4:42 PM 02/14/2024 8:55 PM Care Teams Medical Technologist Chief Relationship Specialty Start Date End Date Edgardo Aldridge MD [address] [facility] [address] or [address] [place] [address] PCP - General Family Medicine 04/02/23 Andrei Chaves MD PhD [address] [address] Referring Physician General Surgery 03/17/23 Olivia Phelps MD [address] [facility] [address] [place] [address] Consulting Physician Nephrology 03/17/23 Odilon Tellez MD [address] [facility] [address] [place] [address] Referring Physician Nephrology 11/12/23 Ayaka Thomas MD [address] [facility] [address] [place] [address] Fellow Internal Medicine 12/17/23 Yumi Jones NP [address] [place] [address] Nurse Practitioner Hospice and Palliative Medicine 08/16/23 Mendel Bowling RN [address] [facility] [place] [address] Forestry Technician 11/07/24 Odilon Tellez MD [address] [place] [address] Consulting Physician Nephrology 12/05/24 Mavis Barahona, RN [address] [facility] [address] [place] [address] Erector Operator 12/20/24
--- OUTSIDE RECORDS SUMMARY | 2025-01-01 15:39 | XMS_ITS ---
Author Organization [facility] Address [address] [place] [address] Phone Care Team Providers Care Landcare Officer Name Role Phone Eun Camacho Primary Care Provider [phone] Lindsey Chronic Condition Monitoring Status:Enrolled (Active) Start date:03/08/2024 Enrollment date:03/08/2024 Related social drivers of health:Intimate Partner Violence, Social Connections, Financial Resource Strain, Depression, Stress, Physical Activity, Food Insecurity, Transportation Needs, Housing Stability, Utilities Continued Care and Services Coordination
--- OUTSIDE RECORDS SUMMARY | 2025-01-01 15:40 | XMS_ITS | Encounter Summary ---
Author Organization [facility] Healthcare Address [address] [place] [address] Care Team Providers Care It Help Desk Manager Name Role Phone Andrei Chaves MD PhD Unavailable [phone] Olivia Phelps MD Unavailable [phone] Edgardo Aldridge MD Primary Care Provider [phone] Odilon Tellez MD Unavailable [phone] Odilon Tellez MD Unavailable [phone] Ayaka Thomas MD Unavailable Yumi Jones NP Unavailable [phone] Mendel Bowling RN Unavailable [phone] Odilon Tellez MD Unavailable [phone] Mavis Barahona RN Unavailable [phone] Encounter Details Date Type Department Care Team (Late st Contact Info) Description 11/23/2024 Results Follow-Up [facility] Family Medicine at [address] [place] [address] Edgardo Aldridge MD [address] [place] [address] [address] [place] [address] SCAN - RADIOLOGY/IMAGING Social History Tobacco Use Types Packs/Day Years Used Date Smoking Tobacco: Never Smokeless Tobacco: Never Alcohol Use Standard Drinks/Week Comments Not Currently 0 (1 standard drink = 0.6 oz pur e alcohol) [facility] Utilities Answer Date Recorded In the past [...] often do you attend chur ch or jehovah's witness services? Never 11/07/2024 Do you belong to any clubs o r organizations such as pentecostal groups, unions, fraternal or athletic groups, or [...] Date Recorded PHQ-2 Total Score 0 11/01/2024 [facility] [place] [facility] Occupat ional [facility] - Occupational Stress [...] place to sleep or slept in a custodial (including now)? No 08/30/2023 PHQ-9 Answer Date [...] any time in the past 12 m [facility], were you homeless or living in a custodial (including now)? No 11/07/2024 Personal Safety Answer Date Recorded Have you ever been in or are you currently in a harmful physical or emotional relationship or is someone making you feel afraid or unsafe? 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 Source: [facility]. 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 Source: [facility]. Kleb pneumo [facility] 10/31/2024 10/31/2024 documented as of this encounter Care Teams It Help Desk Manager Relationship Specialty Start Date End Date Edgardo Aldridge MD [address] [facility] [address] [place] [address] PCP - General Family Medicine 04/02/23 Andrei Chaves MD PhD [address] [facility] [address] [place] [address] Referring Physician General Surgery 03/17/23 Olivia Phelps MD [address] [facility] [address] [place] [address] Consulting Physician Nephrology 03/17/23 Odilon Tellez MD [address] [facility] [address] [place] [address] Consulting Physician Nephrology 05/01/23 12/04/24 Odilon Tellez MD [address] [facility] [address] [place] [address] Referring Physician Nephrology 11/12/23 Ayaka Thomas MD [address] [facility] [address] [place] [address] Fellow Internal Medicine 12/17/23 Yumi Jones NP [address] [facility] [address] [place] [address] Nurse Practitioner Hospice and Palliative Medicine 08/16/23 Mendel Bowling, KADY [address] [facility] [address] [place] [address] Deputy Of Counter Intelligence 11/07/24 Odilon Tellez MD [address] [facility] [address] [place] [address] Consulting Physician Nephrology 12/05/24 Mavis Barahona, RN [address] [facility] [address] [place] [address] [employer] Executive Director 12/20/24 documented as of this encounter
--- OUTSIDE RECORDS SUMMARY | 2025-01-01 15:40 | XMS_ITS | Clinical Summary ---
Author Organization [facility] Address [address] [facility] [address] Phone Care Team Providers Care Industrial Waste Treatment Technician Name Role Phone Unavailable Primary Care Provider Unavailabl e Allergies Active Allergy Reactions Criticality Noted Date Comments Adhesive Tape-Silicones 03/11/2017 Hydralazine 06/29/2018 Hives on face and was not able to swallow Latex Rash Medium 06/07/2018 Medications * This document contains information received from the source organization and may not represent a complete record from that organization. medroxyPROGESTERo ne (DEPO-PROVERA) 150 mg/mL IM injection Inject 150 mg into the muscle Active clonazePAM (KLONOPIN) 0.5 MG tabletIndications :Generalized anxiety disorder Take one tablet (0.5 mg total) by mouth 2 (two) times a day 60 tablet 5 1 Active lisinopriL (PRINIVIL) 10 MG tabletIndications :Essential hypertension Take one tablet (10 mg total) by mouth one (1) time a day 30 tablet 1 1 Active buPROPion (WELLBUTRIN) 75 MG tablet Take one tablet (75 mg total) by mouth one (1) time a day 2 Active carvediloL (COREG) 25 MG tablet Take one tablet (25 mg total) by mouth 2 (two) times a day 2 Active FEROSUL 325 mg (65 mg iron) tablet Take one tablet (325 mg total) by mouth one (1) time a day 2 Active SUMAtriptan (IMITREX) 50 MG tablet SMARTSIG:By Mouth 2 Active insulin aspart U-100 (NOVOLOG) 100 unit/mL SC injectionIndicati ons:Type 1 diabetes mellitus with diabetic neuropathy (HCC ) Sliding Scale as directed 10 mL 2 2 Active pantoprazole (PROTONIX) [address] tabletIndications :Gastroparesis due to secondary diabetes (HCC ) Take one tablet (40 mg total) by mouth 2 (two) times a day 60 tablet 5 2 Active scopolamine patch (TRANSDERM-SCOP 1.5 MG;DELIVERS) 1 mg over 3 days (72 hr patch)Indications :Gastroparesis due to secondary diabetes (HCC ) Place one patch onto the skin every third day 10 patch 2 Active amLODIPine (NORVASC) 10 MG tabletIndications :Essential hypertension Take one tablet (10 mg total) by mouth one (1) time a day 30 tablet 2 2 Active prochlorperazine (COMPAZINE) 5 MG tabletIndications :Gastroparesis due to secondary diabetes (HCC ) TAKE 1 TABLET(5 MG) BY MOUTH EVERY 6 HOURS NEEDED FOR NAUSEA 90 tablet 2 Active insulin glargine (LANTUS) 100 unit/mL (3 mL) SC pen Inject twenty Units under the skin every evening 18 mL 2 Active Active Problems Problem Noted Date Diagnosed Date Chronic idiopathic constipation 02/12/2021 Generalized anxiety disorder 05/13/2020 Overview (11/12/2020): Last Assessment & Plan: Chronic Cont klonopin rather than xanx Hypokalemia 08/09/2019 Iron deficiency anemia 08/09/2019 Cyclic vomiting syndrome 04/27/2019 Overview (11/12/2020): Last Assessment & Plan: Chronic Cont klonopinjonny Has f/u with GI Last Assessment & Plan: Patient follows with Dr. Moura and next has an appointment in September. She is not currently on any medications other than p.r.n. Compazine. Amitriptyline stopped working for her so that was discontinued. Continue with p.r.n. Compazine. Patient states Haldol helps with her nausea as well, will order p.r.n. Haldol. Continue to monitor. Polyneuropathy 11/08/2018 Major depression, recurrent, chronic 07/07/2018 Gastroparesis due to secondary diabetes 10/27/19 Overview (11/12/2020): Last Assessment & Plan: Needs letter for another 2 weeks off and when returns needs intermittent restrictions on return with no more than 3 days per week, but not consecutive 3 days Type 1 diabetes mellitus 05/22/2017 Overview (11/12/2020): Last Assessment & Plan: -Brittle DM1 -Home [...] prandial and SSI Last Assessment & Plan: Uncontrolled diabetic with A1c>18 when hospitalized. Feeling improved now. Urged patient to re-establish with previous upper cutter for management. Need back on insulin pump Last Assessment & Plan: -Brittle DM1 -Home [...] follow up. - Glucose control as above. Last Assessment & Plan: Uncontrolled Cont long acting insulin with SSI F/u with upper cutter Last Assessment & Plan: -Brittle DM1 -Home [...] follow up. - Glucose control as above. Essential hypertension 03/20/2016 Overview (11/12/2020): Last Assessment & Plan: Titrate her Metoprolol to help her BP and HR. Last Assessment & Plan: Stable Cont lisinopril, amlodipine Last Assessment & Plan: Hypotensive earlier likely from dehydration Will only order prn meds for now, hold scheduled meds Last Assessment & Plan: Blood pressures were elevated on presentation, likely secondary to discomfort. Continue metoprolol on lisinopril with hold parameters. Patient states normally her blood pressures are 140s over 90s. Last Assessment & Plan: Hypotensive earlier likely from dehydration Will only order prn meds for now, hold scheduled meds Last Assessment & Plan: Titrate her Metoprolol to help her BP and HR. Resolved Problems Problem Noted Date Diagnosed Date Resolved Date Diabetes insipidus 06/30/2018 2 Intractable vomiting with na usea, unspecified vomiting type 06/29/2018 11/12/2020 Dehydration 06/29/2018 07/01/2018 DKA (diabetic ketoacidoses) 03/11/2017 11/12/2020 Immunizations Immunization Administration Dates Next Due DTP/HiB 07/10/1996, 6,1995,1995 DTaP 12/03/2000,01/17/1998 Hep B (Historical) 1995,1995, 996 HiB PRP-T 01/17/1998 Influenza (Historical) 02/27/2020,02/28/2019 Influenza Inj. QIV (PF) 02/14/2021 MMR 12/03/2000,10/12/1996 PPD Test 05/22/2016 Snapette COVID-19 Vaccine 01/24/2021 Poliovirus Trivalent Vaccine , Live (PO) 01/21/1996,1995 Poliovirus Vaccine (Historical) 01/17/1998,07/10,1995 Varicella 10/12/1996 Family History Medical History Relation Name Comments Heart disease Maternal Grandmother No Known Problems Mother Relation Name Status Comments Maternal Grandmother Alive Mother Alive Social History Tobacco Use Types Packs/Day Years Used Date Smoking Tobacco: Never Smokeless Tobacco: Never Tobacco Cessation:Counseling Given: Yes Alcohol Use Standard Drinks/Week Comments No 0 (1 standard drink = 0.6 oz pur e alcohol) Comments No Sex and Gender Information Value Date Recorded Sex Assigned at Female 11/05/2020 3:34 PM CDT Legal Sex Female 12:26 PM PICK UP OPERATOR Gender Identity Female 11/05/2020 3:34 PM CDT Sexual Orientation Straight 11/05/2020 3: 34 PM CDT Last Filed Vital Signs Vital Sign Reading Time Taken Comments Blood Pressure 138/78 06/24/2022 7:47 PM PICK UP OPERATOR Pulse 95 06/24/2022 7:47 PM PICK UP OPERATOR Temperature 37 C (98.6 F) 06/24/2022 6:25 PM PICK UP OPERATOR Respiratory Rate 22 06/24/2022 7:47 PM PICK UP OPERATOR Oxygen Saturation 100% 06/24/2022 7:47 PM PICK UP OPERATOR Inhaled Oxygen Concentration - - Weight 54.4 kg (120 lb) 06/24/2022 4:51 PM PICK UP OPERATOR Height 162.6 cm (5' 4) 12/03/2021 10:40 AM CDT Body Mass Index 20.6 12/03/2021 10:40 AM CDT Plan of Treatment Health Maintenance Due Date Last Done Comments DTap/Tdap/Td Vaccines (6 - Tdap) 06/16/2006 12/03/2000, 01/17/1998, 07/10/1996, Additional history exists Diabetic Eye Exam WITHOUT Retinopathy 06/16/2013 Cervical Cancer Screening 06/16/2016 Diabetic Foot Exam 03/11/2017 Glycosylated Hemoglobin 01/16/2022 01/16/2021, 08/12 Annual Depression Screening 02/12/2022 02/12/2021 Kidney Health Eval - uACR 02/12/2022 02/12/2021 Annual Physical 02/25/2022 02/25/2021 Kidney Health Eval - eGFR 06/25/20232022, 02/25/2022, 08/26/2021, Additional history exists COVID-19 Vaccine (2 - 2024-2 6 season) 2024 01/24/2021 Flu Vaccine (#1) 12/18/2024 02/14/2021, 01/2020, 02/28/2019 Influenza Vaccine 12/18/2024 02/14/2021, , 02/28/2019 Hepatitis C Antibody Screen Completed 08/10/2020 Diabetic Annual Microalbumin Discontinued 02/12/2021 Procedures Procedure Name Priority Date/Time Associated Diagnosis Comments COMPREHENSIVE METABOLIC PANEL STAT 06/24/2022 5:05 PM PICK UP OPERATOR MICROALBUMIN/CREATININ E URINE RANDOM Routine 02/12/2021 3:35 PM CDT Type 1 diabetes mellitus with diabetic neuropathy (HCC ) HEMOGLOBIN A1C Routine 01/16/2021 3:32 AM CDT HEPATITIS PANEL, ACUTE STAT 8:38 PM CDT from Last 3 Months or Most Recently Relevant to Health Maintenance Results * (ABNORMAL) Comprehensive metabolic panel (06/24/2022 5:05 PM PICK UP OPERATOR) Sodium 139 135 - 145 mmol/L 06/24/2022 5:38 PM PICK UP OPERATOR [facility] Potassium 4.4 3.5 - 5.0 mmol/L 06/24/2022 5:38 PM [facility] Chloride 108(H) 98 - 107 mmol/L 06/24/2022 5:38 PM [facility] Carbon Dioxide 23 21 - 32 mmol/L 06/24/2022 5:38 PM [facility] Anion Gap 8 6 - 16 mmol/L 06/24/2022 5:38 PM [facility] Glucose 421(HH) 70 - 110 mg/dL 06/24/2022 5:38 PM [facility] BUN 33(H) 7 - 18 mg/dL 06/24/2022 5:38 PM [facility] Creatinine 2.70(H) 0.60 - 1.30 mg/dL 06/24/2022 5:38 PM [facility] BUN/Creatinine Ratio 12.2 11.7 - 13.9 06/24/2022 5:38 PM [facility] Calcium 8.9 8.5 - 10.1 mg/dL 06/24/2022 5:38 PM [facility] Comment:Calcium measurements are adversely affected by the use of Omniscan during MRI. Analysis of calcium is not recommended for 12 to 24 hours after the use of the contrast agent. Protein total 7.5 6.4 - 8.2 g/dL 06/24/2022 5:38 PM [facility] Albumin 2.8(L) 3.4 - 5.0 g/dL 06/24/2022 5:38 PM [facility] Bilirubin Total 0.2 0.0 - 1.0 mg/dL 06/24/2022 5:38 PM [facility] Comment:Use of this assay is not recommended for patients undergoing treatment with eltrombopag due to the potential for falsely elevated results. AST 39(H) 7 - 34 U/L 06/24/2022 5:38 PM [facility] ALT 77(H) 16 - 62 U/L 06/24/2022 5:38 PM [facility] ALP 224(H) 50 - 136 U/L 06/24/2022 5:38 PM [facility] eGFR non- 21.1(L) >=60.0 mL/min/1.7 3m2 06/24/2022 5:38 PM [facility] eGFR 25.6(L) >=60.0 mL/min/1.7 3m2 06/24/2022 5:38 PM [facility] Comment:The estimated GFR is based on the Modification of Diet in Renal Disease Study (MDRD) equation using average adult body surface area. This equation has not been validated for use with age groups below 18 or over 70, women, patients with serious co-morbid conditions, or persons with extremes of body size, muscle mass or nutritional status. Blood 06/24/2022 5:05 PM PICK UP OPERATOR 06/24/2022 5:05 PM PICK UP OPERATOR us Cony Alexander DO LAB BLOOD ORDERABLES Fin al Result Performing Organization Address City/[facility]/ZIP Co de Phone Number [facility] [address] [address] * (ABNORMAL) Microalbumin/Creatinine Urine (02/12/2021 3:35 PM CDT) Pathologist [facility] Creatinine Urine 10.00 10.00 - 300.00 mg/dL 02/13/2021 11:03 AM CDT [facility] Microalbumin urine 150(H) <=20 mg/L 02/13/2021 11:03 AM CDT [facility] Microalbumin/cre atinine urine >300 mg/g creatinine 02/13/2021 11:03 AM CDT [facility] Urine URINE SPECIMEN / Unknown Collection / Unknown 02/12/2021 3:35 PM CDT 02/12/2021 3:35 PM CDT us Devang Fan DO URINE ORDERABLES Final Re sult [facility] [address] [address] * (ABNORMAL) Hemoglobin A1c (01/16/2021 3:32 AM CDT) Hemoglobin A1c >14.0(H) 4.5 - 6.2 % 01/16/2021 7:05 AM CDT [facility] Blood Venipuncture / Unknown 01/16/2021 3:32 AM CDT 01/16/2021 3:34 AM CDT us Betty Johansen MD LAB BLOOD ORDERABLES Fin al Result [facility] [address] [place] [address] * Hepatitis Panel, Acute (08/10/2020 8:38 PM CDT) Hepatitis A Virus IgM Antibody Negative Negative 08/11/2020 10:54 PM CDT [facility] Hepatitis B Virus Surface Antigen Negative Negative 08/11/2020 10:54 PM CDT [facility] Hepatitis B Virus Core IgM Antibody Negative Negative 08/11/2020 10:54 PM CDT [facility] Hepatitis C Virus Antibody Negative Negative 08/11/2020 10:54 PM CDT [facility] Comment: Unless otherwise indicated, all testing performed at: [facility] [address] [place] [address] [employer] Department Supervisor: IZA GILES [facility]# [id number] Blood Venipuncture / Unknown 08/10/2020 8:38 PM CDT 08/10/2020 8:44 PM CDT us Xin Alejandre MD LAB BLOOD ORDERABLES Final Result [address] [address] from Last 3 Months or Most Recently Relevant to Health Maintenance Insurance MEDICAID [place] Advance Directives For more information, please contact: [phone] (7AM - 5PM [facility], 7 days a week) * Full Code (Latest Code Status on File) Date Activated Date Inactivated Comments 01/13/2021 1:53 PM 01/17/2021 3:33 PM * Full Code Date Activated Date Inactivated Comments 09/03/2020 2:49 PM 09/05/2020 5:25 PM * Full Code Date Activated Date Inactivated Comments 08/10/2020 8:20 PM 08/12/2020 12:03 PM * Full Code Date Activated Date Inactivated Comments 06/29/2018 6:47 PM 07/01/2018 3:09 PM * Full Code Date Activated Date Inactivated Comments 03/11/2017 4:42 PM 03/15/2017 3:09 PM
--- OUTSIDE RECORDS SUMMARY | 2025-01-01 15:40 | XMS_ITS | Encounter Summary ---
Author Organization [facility] Address [address] [place] [address] Phone Care Team Providers Care Lime Spreader Name Role Phone Andrei Chaves MD PhD Unavailable [phone] Olivia Phelps MD Unavailable [phone] Edgardo Aldridge MD Primary Care Provider [phone] Odilon Tellez MD Unavailable [phone] Ayaka Thomas MD Unavailable Yumi Jones NP Unavailable [phone] Mendel Bowling RN Unavailable [phone] Odilon Tellez MD Unavailable [phone] Mavis Barahona RN Unavailable [phone] Encounter Details Date Type Department Care Team (Late st Contact Info) Description 12/28/2024 Results Follow-Up [facility] Medicine Gastroenterology [address] [facility] 12th [place] [address] [place] [id number] Young Vasquez MD [address] [facility] [address] [place] [address] Surgical pathology Social History Tobacco Use Types Packs/Day Years Used Date Smoking Tobacco: Never Smokeless Tobacco: Never Alcohol Use Standard Drinks/Week Comments Not Currently 0 (1 standard drink = 0.6 oz pur e alcohol) [facility] Utilities Answer Date Recorded In the [...] often do you attend chur ch or hinduism services? 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 Source: [facility]. 08/20/2024 CP-RESEARCH PROFESSIONAL Comment:Added from external infection. Source: [facility]. Kleb pneumo [facility] 10/31/2024 10/31/2024 documented as of this encounter Care Teams Lime Spreader Relationship Specialty Start Date End Date Edgardo Aldridge MD [address] [facility] [address] [place] [address] PCP - General Family Medicine 04/02/23 Andrei Chaves MD PhD [address] [facility] [address] [place] [address] Referring Physician General Surgery 03/17/23 Olivia Phelps MD [address] [facility] [address] [place] [address] Consulting Physician Nephrology 03/17/23 Odilon Tellez MD [address] [facility] [address] [place] [address] Referring Physician Nephrology 11/12/23 Ayaka Thomas MD [address] [facility] [address] [place] [address] Fellow Internal Medicine 12/17/23 Yumi Jones NP [address] [facility] [address] [place] [address] Nurse Practitioner Hospice and Palliative Medicine 08/16/23 Mendel Bowling RN [address] [facility] [address] [place] [address] Special Delivery Clerk 11/07/24 Odilon Tellez MD [address] [facility] [address] [place] [address] Consulting Physician Nephrology 12/05/24 Mavis Barahona, RN [address] [facility] [address] [place] [address] Repair Electric Motor Assembler 12/20/24 documented as of this encounter
--- OUTSIDE RECORDS SUMMARY | 2025-01-01 15:40 | XMS_ITS | Encounter Summary ---
Author Organization [facility] Address [address] [place] [address] Phone Care Team Providers Care Orchestra Teacher Name Role Phone Andrei Chaves MD PhD Unavailable [phone] Olivia Phelps MD Unavailable [phone] Edgardo Aldridge MD Primary Care Provider Odilon Tellez MD Unavailable [phone] Ayaka Thomas MD Unavailable [phone] Yumi Jones NP Unavailable [phone] Mendel Bowling RN Unavailable [phone] Odilon Tellez MD Unavailable [phone] Mavis Barahona RN Unavailable [phone] Encounter Details Date Type Department Care Team (Late st Contact Info) Description 12/26/2024 Results Follow-Up [facility] Medicine Gastroenterology [address] [facility] 12th [place] [address] [place] [address] Young Vasquez MD [address] [facility] [address] [place] [address] CT Abdomen and Pelvis Enterography [...] often do you attend chur ch or methodist services? Never 11/07/2024 Do you belong to any clubs o r organizations such as christian groups, unions, fraternal or athletic groups, or [...] Date Recorded PHQ-2 Total Score 0 11/01/2024 [facility] - Occupational Stress Questionnaire Answer Date Recorded [...] in the past 12 m [facility], were you homeless or living in a custodial (including now)? 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 Source: [facility]. 08/20/2024 CP-REGULATORY COMPLIANCE COORDINATOR Comment:Added from external infection. Source: [facility]. Kleb pneumo [facility] 10/31/2024 10/31/2024 documented as of this encounter Care Teams Orchestra Teacher Relationship Specialty Start Date End Date Edgardo Aldridge MD [address] [facility] [address] [place] [address] PCP - General Family Medicine 04/02/23 Andrei Chaves MD PhD [address] [facility] [address] [place] [address] Referring Physician General Surgery 03/17/23 Olivia Phelps MD [address] [facility] [address] [place] [address] Consulting Physician Nephrology 03/17/23 Odilon Tellez MD [address] [facility] [address] [place] [address] Referring Physician Nephrology 11/12/23 Ayaka Thomas MD [address] [facility] [address] [place] [address] Fellow Internal Medicine 12/17/23 Yumi Jones NP [address] [facility] [address] [place] [address] Nurse Practitioner Hospice and Palliative Medicine 08/16/23 Mendel Bowling RN [address] [place] [address] [address] [place] [address] Livestock Counter 11/07/24 Odilon Tellez MD [address] [facility] [address] [place] [address] Consulting Physician Nephrology 12/05/24 Mavis Barahona, RN [address] [facility] [address] [place] [address] Grounds And Nursery Specialist 12/20/24 documented as of this encounter
--- OUTSIDE RECORDS SUMMARY | 2025-01-01 15:40 | XMS_ITS ---
Author Organization [facility] Address [address] [place] [address] Care Team Providers Care Eight Section Blower Name Role Phone Andrei Chaves MD PhD Unavailable [phone] Olivia Phelps MD Unavailable [phone] Edgardo Aldridge MD Primary Care Provider Odilon Tellez MD Unavailable [phone] Ayaka Thomas MD Unavailable [phone] Yumi Jones NP Unavailable [phone] Mendel Bowling RN Unavailable [phone] Odilon Tellez MD Unavailable [phone] Mavis Barahona RN Unavailable [phone] Dialysis Access Sites Type Status Location [...] AM CDT COLONOSCOPY 12/26/2024 9:16 AM CDT MI AN PROCEDURE PLACEHOLDER Routine 12/2024 9:02 AM CDT MI AN ELECTIVE ENDOTRACHEAL AIRWAY Routine 12/26/2024 9:02 [...] CDT XR ABDOMEN AP 1 VIEW Schedule RDE, Read RED (Appt Today, Awaiting Results) 10/27/2024 [...] Medium 01/11/2024 Medications blood-glucose meter,continuous (Dexcom G6 Call Out Clerk) miscIndications:U ncontrolled type 1 diabetes mellitus with hyperglycemia, with long-term current use of insulin (HCC) 1 Dexcom G6 Call Out Clerk 1 each 023 Active OneTouch Delica Plus [...] hyperglycemia, with long-term current use of insulin ([facility]) Will use 1 sensor every 10 days. 1 box = 3 sensors. 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 Continue to monitor. Hold any [...] consult Assessment & Plan (05/15/2020 6:30 AM POLE INCISOR OPERATOR): PICC line in place because of need for recurrent IVF Assessment & Plan (06/27/2019 8:49 AM CDT): - 2/2 diabeters and chronic poor control and long standing cyclic vomiting and gastroperesis. Diet as tolerated, diabetic diet. Assessment & Plan (06/12/2019 12:12 PM POLE INCISOR OPERATOR): -Continue supplements as tolerated Diabetic gastroparalysis 11/08/2018 [...] mostly IV dilaudid and was on a COMMUNICATIONS ANALYST briefly. - continues to have severe abdominal [...] same. Plan change to esophageal diet today. Rn Pediatric to review prior to dc Plan f/u with Dr Chaves in GI as OP Assessment & Plan (03/31/2022 5:47 PM POLE INCISOR OPERATOR): Type 1 diabetic Cyclical vomiting, gastroparesis - [...] year. Has an appointment for GI in [place] next month. Currently is on SSI, but [...] q1hr Assessment & Plan (05/15/2020 2:56 PM POLE INCISOR OPERATOR): Needs letter for another 2 weeks off and when returns needs intermittent restrictions on return with no more than 3 days per week, but not consecutive 3 days Assessment & Plan (05/15/2020 6:29 AM POLE INCISOR OPERATOR): Uncontrolled Cont treatment per GI Cont reglan Has PICC line Assessment & Plan (06/27/2019 8:44 AM CDT): - Chronic emesis which triggers DKA. No active symptoms now. - PCP follow up. - Glucose control as above. Assessment & Plan (04/21/2019 1:24 PM POLE INCISOR OPERATOR): -Patient reports h/o positive gastric emptying study [...] had discussion with patient regarding pain control. snf opioids would be a very poor choice for her, given her gastroparesis, young age, and potential for developing dependence/addiction. Will not discharge on opioids. 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 Assessment & Plan (06/12/2019 12:12 PM POLE INCISOR OPERATOR): continue lisinopril and toprol xl , clonidine patch Assessment & Plan (06/11/2019 1:52 PM POLE INCISOR OPERATOR): _BP better today , continue lisinopril and toprol xl Assessment & Plan (05/07/2019 2:03 PM POLE INCISOR OPERATOR): On clonidine, metoprolol and lisinopril at home. - continue home clonidine and metoprolol - hold lisinopril for now (? EUGENIE related intestinal angioedema). May need to consider alternative anti-hypertensive if needed as a trial. Assessment & Plan (04/28/2019 4:43 PM POLE INCISOR OPERATOR): - Cont home meds Assessment & Plan (04/27/2019 2:59 PM POLE INCISOR OPERATOR): - Cont home meds Assessment & Plan (04/21/2019 12:59 PM POLE INCISOR OPERATOR): Clonidine patch and metoprolol XL -BP stable Assessment & Plan (04/11/2019 12:43 PM POLE INCISOR OPERATOR): Cont lisinopril and Toprol XL, and due for change of clonidine patch Assessment & Plan (04/10/2019 11:29 AM POLE INCISOR OPERATOR): BP elevated this am but improved after [...] drink = 0.6 oz pur e alcohol) [facility] Utilities Answer Date Recorded In the past 12 months has e electric, gas, oil, or water [employer] threatened to shut off services in your [...] Date Recorded PHQ-2 Total Score 0 11/01/2024 [facility] [place] of Occupat ional Health - Occupational Stress [...] place to sleep or slept in a group home (including now)? No 08/30/2023 PHQ-9 Answer Date [...] [facility] the [facility] or living in a group home (including now)? No 11/07/2024 AUDIT-C Answer Date [...] on file Legal Sex Female 9:16 AM POLE INCISOR OPERATOR Gender Identity Not on file Sexual [...] LAB POCT ORDERABLES - DEVICE Final Result [facility] Department [place] [address] * Colonoscopy (12/26/2024 9:16 AM CDT) Anatomical Region Laterality Modality Other Narrative Procedure Note Young Vasquez MD - 12/26/2024 9:16 AM CDT GI ENDOS[facility] Patient Name: Brissa Angela Procedure Date: 12/26/2024 9:16 AM Date of : 1995 Admit Type: Outpatient Age: 29 Gender: Female Attending MD: Young Vasquez M.D., Room: [facility] ENDOSCOPY ROOM 8 Note Status: Finalized Procedure: [...] was passed under direct vision.The PCF [id number] endoscope was introduced through the anus and [...] MD ENDOSCOPY PROCEDURES F inal Result * MI AN ELECTIVE ENDOTRACHEAL AIRWAY, MI AN PROCEDURE PLACEHOLDER (12/26/2024 9:02 AM CDT) Narrative Federico Beltran CRNA - 12/26/2024 9:02 AM CDT Federico Beltran CRNA 12/26/2024 9:03 AM Airway Patient location: OR Urgency: elective Indications for airway management: anesthesia Difficult airway: no Staff: Supervising provider: Dylan Frias MD Placed by: BUSINESS PRACTICES OFFICER: Federico Beltran CRNA Emergent airway documentation: Risks [...] Biopsy) 12/26/2024 9:25 AM CDT Narrative PATHOLOGY [facility] - 12/27/2024 6:13 PM CDT EPIC results best viewed via link to PDF [facility] Gud[facility] [place] [address] Note to Patients: This report may contain [...] Gender: F : 1995 (Age: 29) Address: [address] [place] [address] Hospital #: [id number] Taken:12/26/2024 Received:12/26/2024 Reported: 12/27/2024 Patient Type: [facility] Service: Gastro Location: Physician(s): Caesar Ruff [...] in greatest dimension. Labeled E1. Jar [facility]. [facility]12/26/2024 11:42 PA(s): Samia Gtz By this signature, I attest that the above diagnosis is based upon my personal examination of the slides(and/or other material). Addenda/Procedures The performance characteristics of some immunohistochemical stains, fluorescence in-situ hybridization tests and immunophenotyping by flow cytometry cited in this report (if any) were determined by the Surgical Pathology and Flow Cytometry Departments at [facility] as part of an ongoing quality control tech program and in compliance with federally mandated [...] Surgical Pathology and Flow Cytometry Departments of [facility]. It has not been cleared or approved by the U. S. Food and Drug Administration. IMAGES AND SCANNED DOCUMENTS, IF INCLUDED, ONLY VIEWABLE IN PDF VERSION OF REPORT us Young Vasquez MD LAB PATHOLOGY ORDERABL ES Final Result PATHOLOGY [facility] [address]rd Floor [place], [place] [phone] * EGD (12/26/2024 8:55 AM CDT) Anatomical Region Laterality Modality Other Narrative Procedure Note Young Vasquez MD - 12/26/2024 8:55 AM CDT [facility] Patient Name: Brissa Angela Procedure Date: 12/26/2024 8:55 AM Date of : 1995 Admit Type: Outpatient Age: 29 Gender: Female Attending MD: Young Vasquez M.D., Room: [facility] ENDOSCOPY ROOM 8 Note Status: Finalized Procedure: [...] HCG, ur, POC Negative Negative Lot Number [id number] QC Backgroud Clear Acceptable QC Control Line Acceptable Urine 12/26/2024 8:43 AM CDT Young Vasquez MD POINT OF CARE TEST ORD ERABLES Final Result * POCT glucose (12/26/2024 8:41 AM CDT) Glucose, POC 102 70 - 199 mg/dL Blood 12/26/2024 8:41 AM CDT 12/26/2024 8:41 AM CDT Young Vasquez MD LAB POCT ORDERABLES - DEVICE Final Result Performing Organization Address [facility] Co de Phone Number [facility] Department [place] [address] [place] [address] * (ABNORMAL) POCT glucose (12/26/2024 7:53 AM CDT) Glucose, POC 67(L) 70 - 199 mg/dL Blood 12/26/2024 7:53 AM CDT 12/26/2024 7:53 AM CDT us Young Vasquez MD LAB POCT ORDERABLES - DEVICE Final Result Performing Organization Address [facility] Co de Phone Number [facility] Department [place] [address] * (ABNORMAL) eGFR (12/26/2024 7:03 AM CDT) [...] MD LAB BLOOD ORDERABLES F inal Result [facility] Department [place] [address] * (ABNORMAL) Comprehensive metabolic panel (12/26/2024 7:03 AM CDT) Sodium 129(L) 135 - 145 mmol/L Potassium, pl 4.8 3.3 - 4.9 mmol/L [facility] Comment:Hemolyzed; Potassium value may be falsely elevated by as much as 0.6-1.0 mmol/L. Suggest redraw and reanalysis. Chloride 94(L) 97 - 110 mmol/L [facility] CO2 25 22 - 32 mmol/L [facility] Anion gap 10 2 - 15 mmol/L [facility] BUN 18 6 - 25 mg/dL [facility] Creatinine 6.44(H) 0.60 - 1.10 mg/dL [facility] Glucose 110 70 - 199 mg/dL [facility] Comment: Interpretive Data Fasting glucose >/= [...] 2022. Calcium 8.2(L) 8.5 - 10.3 mg/dL [facility] Bilirubin, total 0.4 0.1 - 1.2 mg/dL [facility] Protein, pl 7.9 6.5 - 8.5 g/dL [facility] Albumin 3.7 3.5 - 5.0 g/dL [facility] Alk phos 181(H) 40 - 130 Units/L [facility] ALT 18 7 - 45 Units/L [facility] AST 31 10 - 45 Units/L [facility] Comment:Hemolyzed; result ma y be falsely elevated Blood 12/26/2024 7:03 AM CDT 12/26/2024 7:04 AM CDT Young Vasquez MD LAB BLOOD ORDERABLES F inal Result [facility] [place] [address] * CT Abdomen and Pelvis Enterography W [...] signed by Mahin CORDOVA T: Report ID: [id number] Reading Location: [id number] Procedure Note Mahin Balderrama MD - 12/22/2024 [...] signed by Mahin CORDOVA T: Report ID: [id number] Reading Location: [place] [address] Raul Clark DO IMG CT PROCEDURES Final [...] signed by Mahin CORDOVA T: Report ID: [id number] Reading Location: [id number] Procedure Note Mahin Balderrama MD - 12/22/2024 [...] signed by Mahin CORDOVA T: Report ID: [id number] Reading Location: [place] [address] Raul Clark DO IMG CT PROCEDURES Final [...] by Andrei Nguyen M.D. T: Report ID: [id number] Reading Location: [id number] Procedure Note Andrei Nguyen MD - 12/10/2024 [...] by Andrei Nguyen M.D. T: Report ID: [id number] Reading Location: [id number] Raul Clark DO IMG XR PROCEDURES Final [...] by Andrei Nguyen M.D. T: Report ID: [id number] Reading Location: [id number] Procedure Note Andrei Nguyen MD - 12/10/2024 [...] by Andrei Nguyen M.D. T: Report ID: [id number] Reading Location: [id number] Raul Clark DO IMG XR PROCEDURES Final [...] PROCEDURES Fin al Result Performing Organization Address City/[facility]/ZIP Co de Phone Number RAD_[email or web address] * SCAN - RADIOLOGY/IMAGING (11/16/2024) Anatomical Region Laterality Modality Other Edgardo Aldridge MD Final Result * XR Outside Reference (11/16/2024 12:00 AM CDT) Narrative RADSONJA_MARKELLB_MHE - 12/07/2024 1:05 PM CDT This order has been auto-finalized and does not contain a result. Provider Transcribed Order IMG XR PROCEDURES Fin al Result Performing Organization Address City/[facility]/ZIP Co de Phone Number RAD_[email or web address] * CT Chest WO Contrast (11/11/2024) Anatomical Region Laterality Modality Body N/A Computed Tomogra phy [employer] Provider IMG CT PROCEDURES Final R esult * (ABNORMAL) POCT glucose (11/05/2024 7:20 AM CDT) Glucose, POC 366(H) 70 - 199 mg/dL Blood 11/05/2024 7:20 AM CDT 11/05/2024 7:20 AM CDT Dutch Blake MD LAB POCT ORDERABLES - DEVICE Final Result [facility] Department [place] [address] * POCT glucose (11/05/2024 2:37 AM CDT) Glucose, POC 175 70 - 199 mg/dL Blood 11/05/2024 2:37 AM CDT 11/05/2024 2:37 AM CDT Dutch Blake MD LAB POCT ORDERABLES - DEVICE Final Result Performing Organization Address [facility] de Phone Number [facility] Department [place] [address] * (ABNORMAL) eGFR (11/04/2024 9:18 PM CDT) [...] MD PhD LAB BLOOD ORDERABLES Final Result [facility] Department [place] [address] * Differential, auto (11/04/2024 9:18 PM CDT) Neutrophil abs 5.81 1.50 - 6.50 K/cumm Imm gran abs 0.04 0.00 - 0.10 K/cumm [facility] Lymphocyte abs 1.45 0.80 - 3.30 K/cumm [facility] Monocyte abs 0.63 0.20 - 0.80 K/cumm [facility] Eosinophil abs 0.33 0.00 - 0.50 K/cumm [facility] Basophil abs 0.02 0.00 - 0.10 K/cumm [facility] Neutrophil pct 70.2 % [facility] Comment: Interpretive Data Percent cell count reference ranges are not reported, since discordance with absolute values may lead to misinterpretation of CBC data. Current Interpretive Data was last revised on 2017. Imm gran pct 0.5 % [facility] Comment: Interpretive Data Percent cell count reference ranges are not reported, since discordance with absolute values may lead to misinterpretation of CBC data. Current Interpretive Data was last revised on 2017. Lymphocyte pct 17.5 % [facility] Comment: Interpretive Data Percent cell count reference ranges are not reported, since discordance with absolute values may lead to misinterpretation of CBC data. Current Interpretive Data was last revised on 2017. Monocyte pct 7.6 % [facility] Comment: Interpretive Data Percent cell count reference ranges are not reported, since discordance with absolute values may lead to misinterpretation of CBC data. Current Interpretive Data was last revised on 2017. Eosinophil pct 4.0 % [facility] Comment: Interpretive Data Percent cell count reference ranges are not reported, since discordance with absolute values may lead to misinterpretation of CBC data. Current Interpretive Data was last revised on 2017. Basophil pct 0.2 % [facility] Comment: Interpretive Data Percent cell count reference ranges are not reported, since discordance with absolute values may lead to misinterpretation of CBC data. Current Interpretive Data was last revised on 2017. Blood 11/04/2024 9:18 PM CDT 11/04/2024 10:29 PM CDT Luciano Hayes MD PhD LAB BLOOD ORDERABLES Final Result Performing Organization Address City/[facility]/ZIP Co de Phone Number [facility] Department [place] [address] * (ABNORMAL) CBC with auto differential (11/04/2024 9:18 PM CDT) Pathologist [facility] WBC 8.28 3.80 - 9.90 K/cumm Hgb 8.8(L) 11.9 - 15.5 g/dL [facility] Hct 27.1(L) 35.6 - 45.5 % [facility] Plt 218 150 - 400 K/cumm [facility] MPV 11.1 9.1 - 12.3 fL [facility] RBC 3.15(L) 3.90 - 5.20 M/cumm [facility] MCV 86.0 81.3 - 96.4 fL [facility] MCH 27.9 27.1 - 33.3 pg [facility] MCHC 32.5 32.3 - 35.7 g/dL [facility] RDW CV 16.2(H) 11.1 - 14.9 % [facility] RDW SD 51.3(H) 35.7 - 48.1 fL [facility] NRBC abs 0.00 0.00 - 0.01 K/cumm [facility] Blood 11/04/2024 9:18 PM CDT 11/04/2024 10:29 PM CDT Luciano Hayes MD PhD LAB BLOOD ORDERABLES Final Result Performing Organization Address City/[facility]/ZIP Co de Phone Number [facility] Department [place] [address] * (ABNORMAL) Basic metabolic panel (11/04/2024 9:18 PM CDT) Sodium 141 135 - 145 mmol/L Potassium, pl 4.2 3.3 - 4.9 mmol/L [facility] Chloride 100 97 - 110 mmol/L [facility] CO2 30 22 - 32 mmol/L [facility] Anion gap 11 2 - 15 mmol/L [facility] BUN 13 6 - 25 mg/dL [facility] Creatinine 3.27(H) 0.60 - 1.10 mg/dL [facility] Glucose 241(H) 70 - 199 mg/dL [facility] Comment: Interpretive Data Fasting glucose >/= [...] 2022. Calcium 8.2(L) 8.5 - 10.3 mg/dL [facility] Blood 11/04/2024 9:18 PM CDT 11/04/2024 10:06 PM CDT us Luciano Hayes MD PhD LAB BLOOD ORDERABLES Final Result [facility] Department [place] [address] * (ABNORMAL) POCT glucose (11/04/2024 9:16 PM CDT) Glucose, POC 231(H) 70 - 199 mg/dL Blood 11/04/2024 9:16 PM CDT 11/04/2024 9:16 PM CDT us Dutch Blake MD LAB POCT ORDERABLES - DEVICE Final Result [facility] [address] [place] [address] * (ABNORMAL) POCT glucose (11/04/2024 6:50 PM CDT) Glucose, POC 380(H) 70 - 199 mg/dL Blood 11/04/2024 6:50 PM CDT 11/04/2024 6:50 PM CDT us Dutch Blake MD LAB POCT ORDERABLES - DEVICE Final Result Performing Organization Address [facility] [place] [address] * POCT glucose (11/04/2024 3:55 PM CDT) Glucose, POC 184 70 - 199 mg/dL Blood 11/04/2024 3:55 PM CDT 11/04/2024 3:55 PM CDT us Dutch Blake MD LAB POCT ORDERABLES - DEVICE Final Result Performing Organization Address [facility] Co de Phone Number [facility] [address] [place] [address] * POCT glucose (11/04/2024 12:51 PM CDT) Glucose, POC 122 70 - 199 mg/dL Blood 11/04/2024 12:5 1 PM CDT 11/04/2024 12:51 PM CDT us Dutch Blake MD LAB POCT ORDERABLES - DEVICE Final Result Performing Organization Address [facility] Co de Phone Number [facility] [place] [address] * POCT glucose (11/04/2024 7:16 AM CDT) Glucose, POC 107 70 - 199 mg/dL Blood 11/04/2024 7:16 AM CDT 11/04/2024 7:16 AM CDT Dutch Blake MD LAB POCT ORDERABLES - DEVICE Final Result Performing Organization Address City/[facility] Co de Phone Number [facility] [address] [place] [address] * POCT glucose (11/04/2024 2:03 AM CDT) Glucose, POC 145 70 - 199 mg/dL Comment:Glu2: RN/MD Notified Glucose comment 1 Glu2: RN/MD Notified [facility] Blood 11/04/2024 2:03 AM CDT 11/04/2024 2:03 AM CDT us Dutch Blake MD LAB POCT ORDERABLES - DEVICE Final Result Performing Organization Address [facility] Co de Phone Number [facility] [address] [place] [address] * (ABNORMAL) eGFR (11/03/2024 10:59 PM CDT) [...] MD PhD LAB BLOOD ORDERABLES Final Result [facility] Department [place] [address] * Differential, auto (11/03/2024 10:59 PM CDT) Neutrophil abs 3.37 1.50 - 6.50 K/cumm Imm gran abs 0.01 0.00 - 0.10 K/cumm [facility] Lymphocyte abs 2.13 0.80 - 3.30 K/cumm [facility] Monocyte abs 0.62 0.20 - 0.80 K/cumm [facility] Eosinophil abs 0.34 0.00 - 0.50 K/cumm [facility] Basophil abs 0.02 0.00 - 0.10 K/cumm [facility] Neutrophil pct 51.9 % [facility] Comment: Interpretive Data Percent cell count reference ranges are not reported, since discordance with absolute values may lead to misinterpretation of CBC data. Current Interpretive Data was last revised on 2017. Imm gran pct 0.2 % [facility] Comment: Interpretive Data Percent cell count reference ranges are not reported, since discordance with absolute values may lead to misinterpretation of CBC data. Current Interpretive Data was last revised on 2017. Lymphocyte pct 32.8 % [facility] Comment: Interpretive Data Percent cell count reference ranges are not reported, since discordance with absolute values may lead to misinterpretation of CBC data. Current Interpretive Data was last revised on 2017. Monocyte pct 9.6 % [facility] Comment: Interpretive Data Percent cell count reference ranges are not reported, since discordance with absolute values may lead to misinterpretation of CBC data. Current Interpretive Data was last revised on 2017. Eosinophil pct 5.2 % [facility] Comment: Interpretive Data Percent cell count reference ranges are not reported, since discordance with absolute values may lead to misinterpretation of CBC data. Current Interpretive Data was last revised on 2017. Basophil pct 0.3 % [facility] Comment: Interpretive Data Percent cell count reference ranges are not reported, since discordance with absolute values may lead to misinterpretation of CBC data. Current Interpretive Data was last revised on 2017. Blood 11/03/2024 10:5 9 PM CDT 11/04/2024 12:07 AM CDT Luciano Hayes MD PhD LAB BLOOD ORDERABLES Final Result [facility] Department [place] [address] * (ABNORMAL) CBC with auto differential (11/03/2024 10:59 PM CDT) Pathologist [facility] WBC 6.49 3.80 - 9.90 K/cumm Hgb 8.5(L) 11.9 - 15.5 g/dL [facility] Hct 27.2(L) 35.6 - 45.5 % [facility] Plt 219 150 - 400 K/cumm [facility] MPV 11.1 9.1 - 12.3 fL [facility] RBC 3.04(L) 3.90 - 5.20 M/cumm [facility] MCV 89.5 81.3 - 96.4 fL [facility] MCH 28.0 27.1 - 33.3 pg [facility] MCHC 31.3(L) 32.3 - 35.7 g/dL [facility] RDW CV 16.4(H) 11.1 - 14.9 % [facility] RDW SD 53.7(H) 35.7 - 48.1 fL [facility] NRBC abs 0.00 0.00 - 0.01 K/cumm [facility] Blood 11/03/2024 10:5 9 PM CDT 11/04/2024 12:07 AM CDT Luciano Hayes MD PhD LAB BLOOD ORDERABLES Final Result Performing Organization Address City/[facility]/ZIP Co de Phone Number HERBER [facility] Department [place] [address] * (ABNORMAL) Basic metabolic panel (11/03/2024 10:59 PM CDT) Pathologist [facility] Sodium 141 135 - 145 mmol/L Potassium, pl 4.3 3.3 - 4.9 mmol/L [facility] Chloride 103 97 - 110 mmol/L [facility] CO2 28 22 - 32 mmol/L [facility] Anion gap 10 2 - 15 mmol/L [facility] BUN 38(H) 6 - 25 mg/dL [facility] Creatinine 6.03(H) 0.60 - 1.10 mg/dL [facility] Glucose 224(H) 70 - 199 mg/dL [facility] Comment: Interpretive Data Fasting glucose >/= [...] 2022. Calcium 7.9(L) 8.5 - 10.3 mg/dL [facility] Blood 11/03/2024 10:5 9 PM CDT 11/04/2024 12:06 AM CDT us Luciano Hayes MD PhD LAB BLOOD ORDERABLES Final Result Performing Organization Address [facility]/ZIP Co de Phone Number HERBER [facility] Renate [facility] Department [place] [address] * (ABNORMAL) POCT glucose (11/03/2024 8:37 PM CDT) Glucose, POC 254(H) 70 - 199 mg/dL Comment:Glu2: RN/MD Notified Glucose comment 1 Glu2: RN/MD Notified [facility] Blood 11/03/2024 8:37 PM CDT 11/03/2024 8:37 PM CDT us Dutch Blake MD LAB POCT ORDERABLES - DEVICE Final Result Performing Organization Address City/[facility] Co de Phone Number [facility] [place] [address] * (ABNORMAL) POCT glucose (11/03/2024 4:17 PM CDT) Glucose, POC 290(H) 70 - 199 mg/dL Blood 11/03/2024 4:17 PM CDT 11/03/2024 4:17 PM CDT Dutch Blake MD LAB POCT ORDERABLES - DEVICE Final Result Performing Organization Address [facility] de Phone Number [facility] of [address] [place] [address] * (ABNORMAL) POCT glucose (11/03/2024 11:20 AM CDT) Glucose, POC 222(H) 70 - 199 mg/dL Comment:Glu2: RN/ Notified Glucose comment 1 Glu2: RN/MD Notified [facility] Blood 11/03/2024 11:2 0 AM CDT 11/03/2024 11:20 AM CDT us Dutch Blake MD LAB POCT ORDERABLES - DEVICE Final Result Performing Organization Address City/[facility] Co de Phone Number [facility] [place] [address] * (ABNORMAL) POCT glucose (11/03/2024 9:35 AM CDT) Glucose, POC 224(H) 70 - 199 mg/dL Blood 11/03/2024 9:35 AM CDT 11/03/2024 9:35 AM CDT Dutch Blake MD LAB POCT ORDERABLES - DEVICE Final Result Performing Organization Address City/[facility] Co de Phone Number [facility] [address] [place] [address] * (ABNORMAL) POCT glucose (11/03/2024 8:21 AM CDT) Glucose, POC 64(L) 70 - 199 mg/dL Blood 11/03/2024 8:21 AM CDT 11/03/2024 8:21 AM CDT Dutch Blake MD LAB POCT ORDERABLES - DEVICE Final Result Performing Organization Address [facility] de Phone Number [facility] [address] [place] [address] * POCT glucose (11/03/2024 7:21 AM CDT) Glucose, POC 125 70 - 199 mg/dL Blood 11/03/2024 7:21 AM CDT 11/03/2024 7:21 AM CDT Dutch Blake MD LAB POCT ORDERABLES - DEVICE Final Result Performing Organization Address [facility] de Phone Number [facility] [address] [place] [address] * (ABNORMAL) POCT glucose (11/03/2024 6:49 AM CDT) Glucose, POC 231(H) 70 - 199 mg/dL Blood 11/03/2024 6:49 AM CDT 11/03/2024 6:49 AM CDT Dutch Blake MD LAB POCT ORDERABLES - DEVICE Final Result Performing Organization Address [facility] Co de Phone Number [facility] [place] [address] * (ABNORMAL) POCT glucose (11/03/2024 5:37 AM CDT) Glucose, POC 467(C) 70 - 199 mg/dL Comment: Glu2: RN/MD Notified Critical Value Noted Glucose comment 1 Glu2: RN/MD Notified [facility] Glucose comment 2 Critical Value Noted [facility] Blood 11/03/2024 5:37 AM CDT 11/03/2024 5:37 AM CDT Dutch Blake MD LAB POCT ORDERABLES - DEVICE Final Result Performing Organization Address [facility] Co de Phone Number [facility] [place] [address] * (ABNORMAL) POCT glucose (11/03/2024 3:39 AM CDT) Glucose, POC 536(C) 70 - 199 mg/dL Comment: Glu2: Critical Value Noted RN/MD Notified Glucose comment 2 RN/MD Notified [facility] Blood 11/03/2024 3:39 AM CDT 11/03/2024 3:39 AM CDT Dutch Blake MD LAB POCT ORDERABLES - DEVICE Final Result Performing Organization Address [facility] Co de Phone Number [facility] [place] [address] * (ABNORMAL) eGFR (11/03/2024 2:25 AM CDT) [...] MD PhD LAB BLOOD ORDERABLES Final Result [facility] One [facility] Department [place] [address] * Differential, auto (11/03/2024 2:25 AM CDT) Pathologist [facility] Neutrophil abs 3.18 1.50 - 6.50 K/cumm Imm gran abs 0.02 0.00 - 0.10 K/cumm [facility] Lymphocyte abs 1.48 0.80 - 3.30 K/cumm [facility] Monocyte abs 0.57 0.20 - 0.80 K/cumm [facility] Eosinophil abs 0.21 0.00 - 0.50 K/cumm [facility] Basophil abs 0.01 0.00 - 0.10 K/cumm [facility] Neutrophil pct 58.1 % [facility] Comment: Interpretive Data Percent cell count reference ranges are not reported, since discordance with absolute values may lead to misinterpretation of CBC data. Current Interpretive Data was last revised on 2017. Imm gran pct 0.4 % [facility] Comment: Interpretive Data Percent cell count reference ranges are not reported, since discordance with absolute values may lead to misinterpretation of CBC data. Current Interpretive Data was last revised on 2017. Lymphocyte pct 27.1 % [facility] Comment: Interpretive Data Percent cell count reference ranges are not reported, since discordance with absolute values may lead to misinterpretation of CBC data. Current Interpretive Data was last revised on 2017. Monocyte pct 10.4 % [facility] Comment: Interpretive Data Percent cell count reference ranges are not reported, since discordance with absolute values may lead to misinterpretation of CBC data. Current Interpretive Data was last revised on 2017. Eosinophil pct 3.8 % [facility] Comment: Interpretive Data Percent cell count reference ranges are not reported, since discordance with absolute values may lead to misinterpretation of CBC data. Current Interpretive Data was last revised on 2017. Basophil pct 0.2 % [facility] Comment: Interpretive Data Percent cell count reference ranges are not reported, since discordance with absolute values may lead to misinterpretation of CBC data. Current Interpretive Data was last revised on 2017. Blood 11/03/2024 2:25 AM CDT 11/03/2024 4:01 AM CDT Luciano Hayes MD PhD LAB BLOOD ORDERABLES Final Result [facility] One [facility] Department [place] [address] * Critical Result Callback Chemistry (11/03/2024 2:25 AM CDT) Pathologist [facility] Date Notified [id number] Time Notified 435 HERBER JIMENEZ TestName Glucose HERBER JIMENEZ Called/Read Back Aaron JIMENEZ Credentials RN HERBER JIMENEZ Called By [email or web address] JIMENEZ Blood 11/03/2024 2:25 AM CDT 11/03/2024 4:02 AM CDT Luciano Hayes MD PhD LAB BLOOD ORDERABLES Final Result Performing Organization Address [facility] Co de Phone Number [facility] Department of [address] [place] [address] * (ABNORMAL) CBC with auto differential (11/03/2024 2:25 AM CDT) [facility] WBC 5.47 3.80 - 9.90 K/cumm Hgb 8.9(L) 11.9 - 15.5 g/dL [facility] Hct 28.5(L) 35.6 - 45.5 % [facility] Plt 233 150 - 400 K/cumm [facility] MPV 10.9 9.1 - 12.3 fL [facility] RBC 3.23(L) 3.90 - 5.20 M/cumm [facility] MCV 88.2 81.3 - 96.4 fL [facility] MCH 27.6 27.1 - 33.3 pg [facility] MCHC 31.2(L) 32.3 - 35.7 g/dL [facility] RDW CV 16.4(H) 11.1 - 14.9 % [facility] RDW SD 53.1(H) 35.7 - 48.1 fL [facility] NRBC abs 0.00 0.00 - 0.01 K/cumm [facility] Blood 11/03/2024 2:25 AM CDT 11/03/2024 4:01 AM CDT Luciano Hayes MD PhD LAB BLOOD ORDERABLES Final Result Performing Organization Address [facility] Co de Phone Number [facility] Department of [address] [place] [address] * (ABNORMAL) Basic metabolic panel (11/03/2024 2:25 AM CDT) Pathologist [facility] Sodium 135 135 - 145 mmol/L Comment:Sample investigated and found to be analytically accurate. If results do not match clinical presentation, improper collection (e.g., IV fluid contamination, improper tube type, mislabel) should be considered and re-collection recommended. Potassium, pl 4.7 3.3 - 4.9 mmol/L [facility] Comment:Sample investigated and found to be analytically accurate. If results do not match clinical presentation, improper collection (e.g., IV fluid contamination, improper tube type, mislabel) should be considered and re-collection recommended. Chloride 95(L) 97 - 110 mmol/L [facility] Comment:Sample investigated and found to be analytically accurate. If results do not match clinical presentation, improper collection (e.g., IV fluid contamination, improper tube type, mislabel) should be considered and re-collection recommended. CO2 29 22 - 32 mmol/L [facility] Comment:Sample investigated and found to be analytically accurate. If results do not match clinical presentation, improper collection (e.g., IV fluid contamination, improper tube type, mislabel) should be considered and re-collection recommended. Anion gap 11 2 - 15 mmol/L [facility] Comment:Sample investigated and found to be analytically accurate. If results do not match clinical presentation, improper collection (e.g., IV fluid contamination, improper tube type, mislabel) should be considered and re-collection recommended. BUN 21 6 - 25 mg/dL [facility] Comment:Sample investigated and found to be analytically accurate. If results do not match clinical presentation, improper collection (e.g., IV fluid contamination, improper tube type, mislabel) should be considered and re-collection recommended. Creatinine 4.22(H) 0.60 - 1.10 mg/dL [facility] Comment:Sample investigated and found to be analytically accurate. If results do not match clinical presentation, improper collection (e.g., IV fluid contamination, improper tube type, mislabel) should be considered and re-collection recommended. Glucose 700(C) 70 - 199 mg/dL [facility] Comment: Sample investigated and found to [...] 2022. Calcium 7.4(L) 8.5 - 10.3 mg/dL [facility] Comment:Sample investigated and found to be analytically accurate. If results do not match clinical presentation, improper collection (e.g., IV fluid contamination, improper tube type, mislabel) should be considered and re-collection recommended. Blood 11/03/2024 2:25 AM CDT 11/03/2024 4:02 AM CDT us Luciano Hayes MD PhD LAB BLOOD ORDERABLES Final Result Performing Organization Address City/[facility] Co de Phone Number [facility] Department [place] [address] * (ABNORMAL) POCT glucose (11/03/2024 2:03 AM CDT) Glucose, POC >600(C) 70 - 199 mg/dL Comment:Glu2: KADY/ Notified Glucose comment 1 Glu2: RN/ Notified [facility] Blood 11/03/2024 2:03 AM CDT 11/03/2024 2:03 AM CDT Dutch Blake MD LAB POCT ORDERABLES - DEVICE Final Result Performing Organization Address City/[facility] Co de Phone Number [facility] Department [place] [address] * (ABNORMAL) POCT glucose (11/02/2024 8:42 PM CDT) Glucose, POC 204(H) 70 - 199 mg/dL Comment:Glu2: RN/MD Notified Glucose comment 1 Glu2: RN/MD Notified [facility] Blood 11/02/2024 8:42 PM CDT 11/02/2024 8:42 PM CDT us Dutch Blake MD LAB POCT ORDERABLES - DEVICE Final Result Performing Organization Address City/[facility] Co de Phone Number [facility] of [address] [place] [address] * (ABNORMAL) POCT glucose (11/02/2024 6:19 PM CDT) Glucose, POC 236(H) 70 - 199 mg/dL Blood 11/02/2024 6:19 PM CDT 11/02/2024 6:19 PM CDT us Dutch Blake MD LAB POCT ORDERABLES - DEVICE Final Result Performing Organization Address [facility] Co de Phone Number [facility] [address] [place] [address] * (ABNORMAL) POCT glucose (11/02/2024 12:54 PM CDT) Glucose, POC 281(H) 70 - 199 mg/dL Blood 11/02/2024 12:5 4 PM CDT 11/02/2024 12:54 PM CDT Dutch Blake MD LAB POCT ORDERABLES - DEVICE Final Result Performing Organization Address [facility] Co de Phone Number [facility] [address] [place] [address] * Post Dialysis BUN (11/02/2024 11:27 AM CDT) BUN Post 9 6 - 25 mg/dL Blood 11/02/2024 11:2 7 AM CDT 11/02/2024 12:06 PM CDT [facility] LAB BLOOD ORDERABLES Marli l Result Performing Organization Address [facility] de Phone Number [facility] [place] [address] * (ABNORMAL) Pre Dialysis BUN (11/02/2024 8:37 AM CDT) BUN Pre 37(H) 6 - 25 mg/dL Blood 11/02/2024 8:37 AM CDT 11/02/2024 8:49 AM CDT [facility] LAB BLOOD ORDERABLES Marli l Result Performing Organization Address [facility] de Phone Number [facility] [place] [address] * POCT glucose (11/02/2024 7:39 AM CDT) Glucose, POC 198 70 - 199 mg/dL Blood 11/02/2024 7:39 AM CDT 11/02/2024 7:39 AM CDT Dutch Blake MD LAB POCT ORDERABLES - DEVICE Final Result Performing Organization Address [facility] de Phone Number [facility] [address] [place] [address] * (ABNORMAL) POCT glucose (11/02/2024 3:12 AM CDT) Glucose, POC 268(H) 70 - 199 mg/dL Blood 11/02/2024 3:12 AM CDT 11/02/2024 3:12 AM CDT Dutch Blake MD LAB POCT ORDERABLES - DEVICE Final Result Performing Organization Address [facility] de Phone Number [facility] Department [place] [address] * (ABNORMAL) eGFR (11/01/2024 9:45 PM CDT) [...] BLOOD ORDERABLES Final Result Performing Organization Address [facility] Co de Phone Number [facility] Department [place] [address] * Differential, auto (11/01/2024 9:45 PM CDT) Neutrophil abs 2.74 1.50 - 6.50 K/cumm Imm gran abs 0.01 0.00 - 0.10 K/cumm [facility] Lymphocyte abs 1.86 0.80 - 3.30 K/cumm [facility] Monocyte abs 0.71 0.20 - 0.80 K/cumm [facility] Eosinophil abs 0.17 0.00 - 0.50 K/cumm [facility] Basophil abs 0.02 0.00 - 0.10 K/cumm [facility] Neutrophil pct 49.6 % [facility] Comment: Interpretive Data Percent cell count reference ranges are not reported, since discordance with absolute values may lead to misinterpretation of CBC data. Current Interpretive Data was last revised on 2017. Imm gran pct 0.2 % [facility] Comment: Interpretive Data Percent cell count reference ranges are not reported, since discordance with absolute values may lead to misinterpretation of CBC data. Current Interpretive Data was last revised on 2017. Lymphocyte pct 33.8 % [facility] Comment: Interpretive Data Percent cell count reference ranges are not reported, since discordance with absolute values may lead to misinterpretation of CBC data. Current Interpretive Data was last revised on 2017. Monocyte pct 12.9 % [facility] Comment: Interpretive Data Percent cell count reference ranges are not reported, since discordance with absolute values may lead to misinterpretation of CBC data. Current Interpretive Data was last revised on 2017. Eosinophil pct 3.1 % [facility] Comment: Interpretive Data Percent cell count reference ranges are not reported, since discordance with absolute values may lead to misinterpretation of CBC data. Current Interpretive Data was last revised on 2017. Basophil pct 0.4 % [facility] Comment: Interpretive Data Percent cell count reference ranges are not reported, since discordance with absolute values may lead to misinterpretation of CBC data. Current Interpretive Data was last revised on 2017. Blood 11/01/2024 9:45 PM CDT 11/01/2024 10:31 PM CDT us Luciano Hayes MD PhD LAB BLOOD ORDERABLES Final Result HERBER JIMENEZ One [facility] [place] [address] * (ABNORMAL) CBC with auto differential (11/01/2024 9:45 PM CDT) WBC 5.51 3.80 - 9.90 K/cumm Hgb 9.0(L) 11.9 - 15.5 g/dL [facility] Hct 28.1(L) 35.6 - 45.5 % [facility] Plt 286 150 - 400 K/cumm [facility] MPV 11.0 9.1 - 12.3 fL [facility] RBC 3.28(L) 3.90 - 5.20 M/cumm [facility] MCV 85.7 81.3 - 96.4 fL [facility] MCH 27.4 27.1 - 33.3 pg [facility] MCHC 32.0(L) 32.3 - 35.7 g/dL [facility] RDW CV 16.4(H) 11.1 - 14.9 % [facility] RDW SD 50.9(H) 35.7 - 48.1 fL [facility] NRBC abs 0.00 0.00 - 0.01 K/cumm [facility] Blood 11/01/2024 9:45 PM CDT 11/01/2024 10:31 PM CDT Luciano Hayes MD PhD LAB BLOOD ORDERABLES Final Result [facility] One [facility] Department [place] [address] * (ABNORMAL) Basic metabolic panel (11/01/2024 9:45 PM CDT) Sodium 142 135 - 145 mmol/L Potassium, pl 3.9 3.3 - 4.9 mmol/L [facility] Chloride 102 97 - 110 mmol/L [facility] CO2 27 22 - 32 mmol/L [facility] Anion gap 13 2 - 15 mmol/L [facility] BUN 36(H) 6 - 25 mg/dL [facility] Creatinine 6.00(H) 0.60 - 1.10 mg/dL [facility] Glucose 197 70 - 199 mg/dL [facility] Comment: Interpretive Data Fasting glucose >/= [...] 2022. Calcium 6.9(L) 8.5 - 10.3 mg/dL [facility] Blood 11/01/2024 9:45 PM CDT 11/01/2024 10:31 PM CDT us Luciano Hayes MD PhD LAB BLOOD ORDERABLES Final Result Performing Organization Address [facility] de Phone Number [facility] [place] [address] * POCT glucose (11/01/2024 9:30 PM CDT) Glucose, POC 184 70 - 199 mg/dL Blood 11/01/2024 9:30 PM CDT 11/01/2024 9:30 PM CDT Dutch Blake MD LAB POCT ORDERABLES - DEVICE Final Result Performing Organization Address [facility] de Phone Number [facility] Department [place] [address] * POCT glucose (11/01/2024 4:50 PM CDT) Glucose, POC 130 70 - 199 mg/dL Comment:Glu2: RN/MD Notified Glucose comment 1 Glu2: RN/MD Notified [facility] Blood 11/01/2024 4:50 PM CDT 11/01/2024 4:50 PM CDT Dutch Blake MD LAB POCT ORDERABLES - DEVICE Final Result Performing Organization Address [facility]/State/ZIP Co de Phone Number [facility] [place] [address] * (ABNORMAL) POCT glucose (11/01/2024 11:49 AM CDT) Glucose, POC 201(H) 70 - 199 mg/dL Comment:Glu2: RN/ Notified Glucose comment 1 Glu2: RN/MD Notified [facility] Blood 11/01/2024 11:4 9 AM CDT 11/01/2024 11:49 AM CDT us Dutch Blake MD LAB POCT ORDERABLES - DEVICE Final Result Performing Organization Address [facility] Co de Phone Number [facility] [place] [address] * (ABNORMAL) POCT glucose (11/01/2024 8:12 AM CDT) Glucose, POC 338(H) 70 - 199 mg/dL Comment:Glu2: KADY/ Notified Glucose comment 1 Glu2: RN/ Notified [facility] Blood 11/01/2024 8:12 AM CDT 11/01/2024 8:12 AM CDT us Dutch Blake MD LAB POCT ORDERABLES - DEVICE Final Result Performing Organization Address [facility] Co de Phone Number [facility] [place] [address] * (ABNORMAL) POCT glucose (11/01/2024 1:38 AM CDT) Glucose, POC 232(H) 70 - 199 mg/dL Comment:Glu2: RN/ Notified Glucose comment 1 Glu2: RN/ Notified [facility] Blood 11/01/2024 1:38 AM CDT 11/01/2024 1:38 AM CDT Dutch Blake MD LAB POCT ORDERABLES - DEVICE Final Result Performing Organization Address [facility] Co de Phone Number [facility] Department [place] [address] * (ABNORMAL) eGFR (10/31/2024 11:30 PM CDT) [...] BLOOD ORDERABLES Final Result Performing Organization Address City/[facility]/ZIP Co de Phone Number [facility] One [facility] [place] [address] * (ABNORMAL) Differential, auto (10/31/2024 11:30 PM CDT) Neutrophil abs 7.04(H) 1.50 - 6.50 K/cumm Imm gran abs 0.03 0.00 - 0.10 K/cumm [facility] Lymphocyte abs 0.83 0.80 - 3.30 K/cumm [facility] Monocyte abs 0.28 0.20 - 0.80 K/cumm [facility] Eosinophil abs 0.09 0.00 - 0.50 K/cumm [facility] Basophil abs 0.02 0.00 - 0.10 K/cumm [facility] Neutrophil pct 84.9 % [facility] Comment: Interpretive Data Percent cell count reference ranges are not reported, since discordance with absolute values may lead to misinterpretation of CBC data. Current Interpretive Data was last revised on 2017. Imm gran pct 0.4 % [facility] Comment: Interpretive Data Percent cell count reference ranges are not reported, since discordance with absolute values may lead to misinterpretation of CBC data. Current Interpretive Data was last revised on 2017. Lymphocyte pct 10.0 % [facility] Comment: Interpretive Data Percent cell count reference ranges are not reported, since discordance with absolute values may lead to misinterpretation of CBC data. Current Interpretive Data was last revised on 2017. Monocyte pct 3.4 % [facility] Comment: Interpretive Data Percent cell count reference ranges are not reported, since discordance with absolute values may lead to misinterpretation of CBC data. Current Interpretive Data was last revised on 2017. Eosinophil pct 1.1 % [facility] Comment: Interpretive Data Percent cell count reference ranges are not reported, since discordance with absolute values may lead to misinterpretation of CBC data. Current Interpretive Data was last revised on 2017. Basophil pct 0.2 % [facility] Comment: Interpretive Data Percent cell count reference ranges are not reported, since discordance with absolute values may lead to misinterpretation of CBC data. Current Interpretive Data was last revised on 2017. Blood 10/31/2024 11:3 0 PM CDT 10/31/2024 11:57 PM CDT Luciano Hayes MD PhD LAB BLOOD ORDERABLES Final Result [facility] Department [place] [address] * (ABNORMAL) CBC with auto differential (10/31/2024 11:30 PM CDT) [facility] WBC 8.29 3.80 - 9.90 K/cumm Hgb 10.4(L) 11.9 - 15.5 g/dL [facility] Hct 31.4(L) 35.6 - 45.5 % [facility] Plt 304 150 - 400 K/cumm [facility] MPV 11.2 9.1 - 12.3 fL [facility] RBC 3.72(L) 3.90 - 5.20 M/cumm [facility] MCV 84.4 81.3 - 96.4 fL [facility] MCH 28.0 27.1 - 33.3 pg [facility] MCHC 33.1 32.3 - 35.7 g/dL [facility] RDW CV 16.2(H) 11.1 - 14.9 % [facility] RDW SD 50.7(H) 35.7 - 48.1 fL [facility] NRBC abs 0.00 0.00 - 0.01 K/cumm [facility] Blood 10/31/2024 11:3 0 PM CDT 10/31/2024 11:57 PM CDT Luciano Hayes MD PhD LAB BLOOD ORDERABLES Final Result [facility] Department [place] [address] * (ABNORMAL) Basic metabolic panel (10/31/2024 11:30 PM CDT) [facility] Sodium 137 135 - 145 mmol/L Potassium, pl 3.8 3.3 - 4.9 mmol/L [facility] Chloride 97 97 - 110 mmol/L [facility] CO2 25 22 - 32 mmol/L [facility] Anion gap 15 2 - 15 mmol/L [facility] BUN 20 6 - 25 mg/dL [facility] Creatinine 4.28(H) 0.60 - 1.10 mg/dL [facility] Glucose 230(H) 70 - 199 mg/dL [facility] Comment: Interpretive Data Fasting glucose >/= [...] 2022. Calcium 7.8(L) 8.5 - 10.3 mg/dL [facility] Blood 10/31/2024 11:3 0 PM CDT 10/31/2024 11:56 PM CDT Luciano Hayes MD PhD LAB BLOOD ORDERABLES Final Result Performing Organization Address [facility] Co de Phone Number [facility] Department [place] [address] * POCT glucose (10/31/2024 8:07 PM CDT) Glucose, POC 191 70 - 199 mg/dL Blood 10/31/2024 8:07 PM CDT 10/31/2024 8:07 PM CDT Dutch Blake MD LAB POCT ORDERABLES - DEVICE Final Result Performing Organization Address [facility] Co de Phone Number [facility] Department of [address] [place] [address] * POCT glucose (10/31/2024 5:26 PM CDT) Glucose, POC 108 70 - 199 mg/dL Blood 10/31/2024 5:26 PM CDT 10/31/2024 5:26 PM CDT Dutch Blake MD LAB POCT ORDERABLES - DEVICE Final Result Performing Organization Address [facility]/ZIP Co de Phone Number [facility] [place] [address] * POCT glucose (10/31/2024 1:18 PM CDT) Glucose, POC 96 70 - 199 mg/dL Blood 10/31/2024 1:18 PM CDT 10/31/2024 1:18 PM CDT us Dutch Blake MD LAB POCT ORDERABLES - DEVICE Final Result Performing Organization Address [facility] Co de Phone Number [facility] [place] [address] * Hepatitis B Surface Antigen Blood (10/31/2024 9:31 AM CDT) HepBsAg Nonreactive Nonreactive Blood 10/31/2024 9:31 AM CDT 10/31/2024 9:57 AM CDT us Francisco Middleton DO LAB MICROBIOLOGY - GENERA L ORDERABLES Final Result Performing Organization Address [facility] Co de Phone Number [facility] [place] [address] * POCT glucose (10/31/2024 7:50 AM CDT) Glucose, POC 79 70 - 199 mg/dL Comment:Glu2: RN/MD Notified Glucose comment 1 Glu2: RN/MD Notified [facility] Blood 10/31/2024 7:50 AM CDT 10/31/2024 7:50 AM CDT us Dutch Blake MD LAB POCT ORDERABLES - DEVICE Final Result Performing Organization Address City/[facility]/ZIP Co de Phone Number [facility] [place] [address] * POCT glucose (10/31/2024 1:56 AM CDT) Glucose, POC 87 70 - 199 mg/dL Blood 10/31/2024 1:56 AM CDT 10/31/2024 1:56 AM CDT Dutch Blake MD LAB POCT ORDERABLES - DEVICE Final Result Performing Organization Address City/[facility] Co de Phone Number [facility] [place] [address] * (ABNORMAL) eGFR (10/30/2024 9:57 PM CDT) Pathologist [facility] eGFR 8(L) >=60 mL/min/1. 73 m2 Comment: [...] BLOOD ORDERABLES Final Result Performing Organization Address City/[facility]/ZIP Co de Phone Number [facility] [place] [address] * Differential, auto (10/30/2024 9:57 PM CDT) Neutrophil abs 2.96 1.50 - 6.50 K/cumm Imm gran abs 0.02 0.00 - 0.10 K/cumm [facility] Lymphocyte abs 2.18 0.80 - 3.30 K/cumm [facility] Monocyte abs 0.55 0.20 - 0.80 K/cumm [facility] Eosinophil abs 0.29 0.00 - 0.50 K/cumm [facility] Basophil abs 0.03 0.00 - 0.10 K/cumm [facility] Neutrophil pct 49.1 % [facility] Comment: Interpretive Data Percent cell count reference ranges are not reported, since discordance with absolute values may lead to misinterpretation of CBC data. Current Interpretive Data was last revised on 2017. Imm gran pct 0.3 % [facility] Comment: Interpretive Data Percent cell count reference ranges are not reported, since discordance with absolute values may lead to misinterpretation of CBC data. Current Interpretive Data was last revised on 2017. Lymphocyte pct 36.2 % [facility] Comment: Interpretive Data Percent cell count reference ranges are not reported, since discordance with absolute values may lead to misinterpretation of CBC data. Current Interpretive Data was last revised on 2017. Monocyte pct 9.1 % [facility] Comment: Interpretive Data Percent cell count reference ranges are not reported, since discordance with absolute values may lead to misinterpretation of CBC data. Current Interpretive Data was last revised on 2017. Eosinophil pct 4.8 % [facility] Comment: Interpretive Data Percent cell count reference ranges are not reported, since discordance with absolute values may lead to misinterpretation of CBC data. Current Interpretive Data was last revised on 2017. Basophil pct 0.5 % [facility] Comment: Interpretive Data Percent cell count reference ranges are not reported, since discordance with absolute values may lead to misinterpretation of CBC data. Current Interpretive Data was last revised on 2017. Blood 10/30/2024 9:57 PM CDT 10/30/2024 10:39 PM CDT Luciano Hayes MD PhD LAB BLOOD ORDERABLES Final Result [facility] Department [place] [address] * Beta-hydroxybutyrate (10/30/2024 9:57 PM CDT) [facility] Beta-Hydroxybut yrate 0.1 0.0 - 0.5 mmol/L Blood 10/30/2024 9:57 PM CDT 10/30/2024 10:28 PM CDT Luciano Hayes MD PhD LAB BLOOD ORDERABLES Edited Result - Final Performing Organization Address City/[facility]/ZIP Co de Phone Number [facility] [place] [address] * (ABNORMAL) CBC with auto differential (10/30/2024 9:57 PM CDT) [facility] WBC 6.03 3.80 - 9.90 K/cumm Hgb 8.9(L) 11.9 - 15.5 g/dL [facility] Hct 27.6(L) 35.6 - 45.5 % [facility] Plt 277 150 - 400 K/cumm [facility] MPV 11.0 9.1 - 12.3 fL [facility] RBC 3.17(L) 3.90 - 5.20 M/cumm [facility] MCV 87.1 81.3 - 96.4 fL [facility] MCH 28.1 27.1 - 33.3 pg [facility] MCHC 32.2(L) 32.3 - 35.7 g/dL [facility] RDW CV 16.4(H) 11.1 - 14.9 % [facility] RDW SD 52.3(H) 35.7 - 48.1 fL [facility] NRBC abs 0.00 0.00 - 0.01 K/cumm [facility] Blood 10/30/2024 9:57 PM CDT 10/30/2024 10:39 PM CDT Luciano Hayes MD PhD LAB BLOOD ORDERABLES Final Result Performing Organization Address City/[facility]/ZIP Co de Phone Number [facility] Department [place] [address] * (ABNORMAL) Basic metabolic panel (10/30/2024 9:57 PM CDT) [facility] Sodium 138 135 - 145 mmol/L Potassium, pl 4.2 3.3 - 4.9 mmol/L [facility] Chloride 100 97 - 110 mmol/L [facility] CO2 26 22 - 32 mmol/L [facility] Anion gap 12 2 - 15 mmol/L [facility] BUN 45(H) 6 - 25 mg/dL [facility] Creatinine 6.91(H) 0.60 - 1.10 mg/dL [facility] Glucose 252(H) 70 - 199 mg/dL [facility] Comment: Interpretive Data Fasting glucose >/= [...] 2022. Calcium 8.1(L) 8.5 - 10.3 mg/dL [facility] Blood 10/30/2024 9:57 PM CDT 10/30/2024 10:39 PM CDT us Luciano Hayes MD PhD LAB BLOOD ORDERABLES Final Result Performing Organization Address [facility]/ZIP Co de Phone Number [facility] Department [place] [address] * (ABNORMAL) POCT glucose (10/30/2024 8:29 PM CDT) Glucose, POC 361(H) 70 - 199 mg/dL Comment:Glu2: RN/MD Notified Glucose comment 1 Glu2: RN/MD Notified [facility] Blood 10/30/2024 8:29 PM CDT 10/30/2024 8:29 PM CDT Dennis Cadet MD LAB POCT ORDERABLES - DEV ICE Final Result [facility] [place] [address] * (ABNORMAL) POCT glucose (10/30/2024 5:10 PM CDT) Glucose, POC 292(H) 70 - 199 mg/dL Blood 10/30/2024 5:10 PM CDT 10/30/2024 5:10 PM CDT Dennis Cadet MD LAB POCT ORDERABLES - DEV ICE Final Result Performing Organization Address City/[facility] Co de Phone Number [facility] Department [place] [address] * (ABNORMAL) POCT glucose (10/30/2024 1:08 PM CDT) Glucose, POC 251(H) 70 - 199 mg/dL Blood 10/30/2024 1:08 PM CDT 10/30/2024 1:08 PM CDT Luciano Hayes MD PhD LAB POCT ORDERABLES - DEVIC E Final Result Performing Organization Address City/[facility] Co de Phone Number [facility] [place] [address] * (ABNORMAL) POCT glucose (10/30/2024 11:19 AM CDT) Glucose, POC 270(H) 70 - 199 mg/dL Blood 10/30/2024 11:1 9 AM CDT 10/30/2024 11:19 AM CDT Luciano Hayes MD PhD LAB POCT ORDERABLES - DEVIC E Final Result Performing Organization Address City/[facility]/ZIP Co de Phone Number [facility] Department [place] [address] [place] [address] * (ABNORMAL) eGFR (10/30/2024 9:10 AM CDT) Pathologist [facility] eGFR 10(L) >=60 mL/min/1. 73 m2 Comment: [...] ORDERABLES Fi nal Result Performing Organization Address City/[facility]/ZIP Co de Phone Number [facility] Department [place] [address] * (ABNORMAL) Beta-hydroxybutyrate (10/30/2024 9:10 AM CDT) Pathologist [facility] Beta-Hydroxybut yrate 0.6(H) 0.0 - 0.5 mmol/L Blood 10/30/2024 9:10 AM CDT 10/30/2024 9:23 AM CDT us Dennis Cadet MD LAB BLOOD ORDERABLES Marli l Result [facility] Department [place] [address] * (ABNORMAL) Basic metabolic panel (10/30/2024 9:10 AM CDT) [facility] Sodium 139 135 - 145 mmol/L Potassium, pl 4.7 3.3 - 4.9 mmol/L [facility] Comment:Hemolyzed; Potassium value may be falsely elevated by as much as 0.6-1.0 mmol/L. Suggest redraw and reanalysis. Chloride 102 97 - 110 mmol/L [facility] CO2 24 22 - 32 mmol/L [facility] Anion gap 13 2 - 15 mmol/L [facility] BUN 37(H) 6 - 25 mg/dL [facility] Creatinine 5.68(H) 0.60 - 1.10 mg/dL [facility] Glucose 214(H) 70 - 199 mg/dL [facility] Comment: Interpretive Data Fasting glucose >/= [...] 2022. Calcium 7.9(L) 8.5 - 10.3 mg/dL [facility] Blood 10/30/2024 9:10 AM CDT 10/30/2024 9:27 AM CDT Crystal Schuster MD LAB BLOOD ORDERABLES Fi nal Result Performing Organization Address City/[facility] Co de Phone Number [facility] [place] [address] [place] [address] * POCT glucose (10/30/2024 8:07 AM CDT) Glucose, POC 172 70 - 199 mg/dL Blood 10/30/2024 8:07 AM CDT 10/30/2024 8:07 AM CDT Luciano Hayes MD PhD LAB POCT ORDERABLES - DEVIC E Final Result Performing Organization Address [facility] Co de Phone Number [facility] [address] [place] [address] * POCT glucose (10/30/2024 6:31 AM CDT) Glucose, POC 173 70 - 199 mg/dL Blood 10/30/2024 6:31 AM CDT 10/30/2024 6:31 AM CDT Dennis Cadet MD LAB POCT ORDERABLES - DEV ICE Final Result Performing Organization Address [facility] Co de Phone Number [facility] of [address] [place] [address] * POCT glucose (10/30/2024 4:02 AM CDT) Glucose, POC 88 70 - 199 mg/dL Blood 10/30/2024 4:02 AM CDT 10/30/2024 4:02 AM CDT Dennis Cadet MD LAB POCT ORDERABLES - DEV ICE Final Result Performing Organization Address [facility] Co de Phone Number [facility] Department [place] [address] * POCT glucose (10/30/2024 2:30 AM CDT) Glucose, POC 95 70 - 199 mg/dL Blood 10/30/2024 2:30 AM CDT 10/30/2024 2:30 AM CDT us Dennis Cadet MD LAB POCT ORDERABLES - DEV ICE Final Result [facility] [address] [place] [address] * (ABNORMAL) eGFR (10/30/2024 2:24 AM CDT) [...] ORDERABLES Fi nal Result Performing Organization Address City/[facility]/ZIP Co de Phone Number [facility] Department [place] [address] * (ABNORMAL) Differential, auto (10/30/2024 2:24 AM [...] 2017. Imm gran pct 0.3 % [facility] Comment: Interpretive Data Percent cell count reference ranges are not reported, since discordance with absolute values may lead to misinterpretation of CBC data. Current Interpretive Data was last revised on 2017. Lymphocyte pct 21.2 % [facility] Comment: Interpretive Data Percent cell count [...] on 2017. Eosinophil pct 0.8 % [facility] Comment: Interpretive Data Percent cell count [...] ORDERABLES Final Resul t Performing Organization Address [facility] de Phone Number [facility] Department [place] [address] * (ABNORMAL) CBC with auto differential (10/30/2024 2:24 AM CDT) WBC 10.83(H) 3.80 - 9.90 K/cumm Hgb 9.3(L) 11.9 - 15.5 g/dL [facility] Hct 28.7(L) 35.6 - 45.5 % [facility] Plt 292 150 - 400 K/cumm [facility] MPV 11.0 9.1 - 12.3 fL [facility] RBC 3.34(L) 3.90 - 5.20 M/cumm [facility] MCV 85.9 81.3 - 96.4 fL [facility] MCH 27.8 27.1 - 33.3 pg [facility] MCHC 32.4 32.3 - 35.7 g/dL [facility] RDW CV 16.9(H) 11.1 - 14.9 % [facility] RDW SD 52.8(H) 35.7 - 48.1 fL [facility] NRBC abs 0.00 0.00 - 0.01 K/cumm [facility] Blood 10/30/2024 2:24 AM CDT 10/30/2024 2:44 AM CDT us Sandra Eddy MD LAB BLOOD ORDERABLES Final Resul t Performing Organization Address [facility] Co de Phone Number [facility] Department [place] [address] * (ABNORMAL) Hemoglobin A1c (10/30/2024 2:24 AM CDT) Hgb A1C 8.8(H) 4.0 - 5.6 % Estimated Average Glucose 206 mg/dL [facility] Comment: The ADA recommends reporting an [...] ORDERABLES Marli l Result Performing Organization Address City/[facility]/ZIP Co de Phone Number [facility] [employer] [place], [place] [id number] * Blood gas, venous (10/30/2024 2:24 AM CDT) pH, Venous 7.34 7.32 - 7.43 PCO2, Venous 50 40 - 50 mmHg [facility] PO2, Venous 41 mmHg [facility] Comment: Interpretive Data No Reference Range Established Current Interpretive Data was last revised on 2017. HCO3 Venous, Calculated 28 20 - 30 mmol/L [facility] BE, venous 1 mmol/L [facility] Comment: Interpretive Data No Reference Range Established Current Interpretive Data was last revised on 2017. Blood 10/30/2024 2:24 AM CDT 10/30/2024 2:31 AM CDT Crystal Schuster MD LAB BLOOD ORDERABLES Fi nal Result Performing Organization Address [facility]/ZIP Co de Phone Number [facility] [place] [place] [address] * (ABNORMAL) Basic metabolic panel (10/30/2024 2:24 AM CDT) Sodium 143 135 - 145 mmol/L Potassium, pl 3.6 3.3 - 4.9 mmol/L [facility] Chloride 106 97 - 110 mmol/L [facility] CO2 28 22 - 32 mmol/L [facility] Anion gap 9 2 - 15 mmol/L [facility] BUN 35(H) 6 - 25 mg/dL [facility] Creatinine 5.56(H) 0.60 - 1.10 mg/dL [facility] Glucose 112 70 - 199 mg/dL [facility] Comment: Interpretive Data Fasting glucose >/= [...] 2022. Calcium 7.8(L) 8.5 - 10.3 mg/dL [facility] Blood 10/30/2024 2:24 AM CDT 10/30/2024 2:43 AM CDT us Crystal Schuster MD LAB BLOOD ORDERABLES Fi nal Result Performing Organization Address City/[facility]/ZIP Co de Phone Number [facility] Department [place] [address] * POCT glucose (10/30/2024 12:01 AM CDT) [facility] Glucose, POC 181 70 - 199 mg/dL Blood 10/30/2024 12:0 1 AM CDT 10/30/2024 12:01 AM CDT us Dennis Cadet MD LAB POCT ORDERABLES - DEV ICE Final Result Performing Organization Address City/[facility]/ZIP Co de Phone Number [facility] Department [place] [address] * (ABNORMAL) POCT glucose (10/29/2024 10:01 PM CDT) Glucose, POC 297(H) 70 - 199 mg/dL Blood 10/29/2024 10:0 1 PM CDT 10/29/2024 10:01 PM CDT Dennis Cadet MD LAB POCT ORDERABLES - DEV ICE Final Result Performing Organization Address City/[facility] Co de Phone Number [facility] Department [place] [address] * (ABNORMAL) POCT glucose (10/29/2024 8:26 PM CDT) Glucose, POC 290(H) 70 - 199 mg/dL Blood 10/29/2024 8:26 PM CDT 10/29/2024 8:26 PM CDT Dennis Cadet MD LAB POCT ORDERABLES - DEV ICE Final Result Performing Organization Address City/[facility] Co de Phone Number [facility] [place] [address] * (ABNORMAL) eGFR (10/29/2024 8:13 PM CDT) [...] MD LAB BLOOD ORDERABLES Final R esult [facility] [place] [address] * Lipid panel (10/29/2024 8:13 PM CDT) [...] on 2017. Triglycerides 92 <=149 mg/dL [facility] Comment: Interpretive Data Ages < or [...] on 2017. LDL, calculated 58 <=129 mg/dL [facility] Comment: Interpretive Data Ages < or [...] revised on 2023. Non-HDL Cholesterol 75 mg/dL [facility] Comment: Interpretive Data Ages < or [...] last revised on 2017. Chol/HDL ratio 3 [facility] Blood 10/29/2024 8:13 PM CDT 10/29/2024 8:27 PM CDT us Dennis Cadet MD LAB BLOOD ORDERABLES Marli l Result [facility] Department [place] [address] * (ABNORMAL) Basic metabolic panel (10/29/2024 8:13 PM CDT) Pathologist [facility] Sodium 143 135 - 145 mmol/L Potassium, pl 4.1 3.3 - 4.9 mmol/L [facility] Chloride 102 97 - 110 mmol/L [facility] CO2 23 22 - 32 mmol/L [facility] Anion gap 18(H) 2 - 15 mmol/L [facility] BUN 31(H) 6 - 25 mg/dL [facility] Creatinine 5.00(H) 0.60 - 1.10 mg/dL [facility] Glucose 266(H) 70 - 199 mg/dL [facility] Comment: Interpretive Data Fasting glucose >/= [...] 2022. Calcium 7.7(L) 8.5 - 10.3 mg/dL [facility] Blood 10/29/2024 8:13 PM CDT 10/29/2024 8:27 PM CDT us Ari Us MD LAB BLOOD ORDERABLES Final R esult Performing Organization Address [facility]/ZIP Co de Phone Number [facility] Department [place] [address] * (ABNORMAL) POCT glucose (10/29/2024 4:00 PM CDT) Glucose, POC 290(H) 70 - 199 mg/dL Comment:Glu2: RN/MD Notified Glucose comment 1 Glu2: RN/MD Notified [facility] Blood 10/29/2024 4:00 PM CDT 10/29/2024 4:00 PM CDT us Ciaran Medina MD LAB POCT ORDERABLES - DEVICE Final Result Performing Organization Address City/[facility]/ZIP Co de Phone Number [facility] [place] [address] * (ABNORMAL) POCT glucose (10/29/2024 12:58 PM CDT) Glucose, POC 299(H) 70 - 199 mg/dL Blood 10/29/2024 12:5 8 PM CDT 10/29/2024 12:58 PM CDT us Nathan Moore MD LAB POCT ORDERABLES - DE VICE Final Result Performing Organization Address [facility] Co de Phone Number [facility] [address] [place] [address] * (ABNORMAL) POCT glucose (10/29/2024 11:55 AM CDT) Glucose, POC 309(H) 70 - 199 mg/dL Comment:Glu2: RN/ Notified Glucose comment 1 Glu2: RN/MD Notified [facility] Blood 10/29/2024 11:5 5 AM CDT 10/29/2024 11:55 AM CDT us Nathan Moore MD LAB POCT ORDERABLES - DE VICE Final Result Performing Organization Address City/[facility] Co de Phone Number [facility] [address] [place] [address] * XR Chest PA Lateral 2 Views [...] DE VICE Final Result Performing Organization Address City/[facility]/ZIP Co de Phone Number [facility] [address] [place] [address] * Potassium, whole blood (10/29/2024 11:03 AM CDT) Potassium, bld 4.2 3.3 - 4.9 mmol/L Blood 10/29/2024 11:0 3 AM CDT 10/29/2024 11:15 AM CDT us Ari Us MD LAB BLOOD ORDERABLES Final R esult Performing Organization Address [facility] Co de Phone Number [facility] [place] [address] * (ABNORMAL) eGFR (10/29/2024 11:03 AM CDT) [...] MD LAB BLOOD ORDERABLES Final R esult [facility] Department [place] [address] * (ABNORMAL) Differential, auto (10/29/2024 11:03 AM CDT) Neutrophil abs 8.42(H) 1.50 - 6.50 K/cumm Imm gran abs 0.04 0.00 - 0.10 K/cumm [facility] Lymphocyte abs 1.17 0.80 - 3.30 K/cumm [facility] Monocyte abs 0.52 0.20 - 0.80 K/cumm [facility] Eosinophil abs 0.17 0.00 - 0.50 K/cumm [facility] Basophil abs 0.04 0.00 - 0.10 K/cumm [facility] Neutrophil pct 81.3 % [facility] Comment: Interpretive Data Percent cell count reference ranges are not reported, since discordance with absolute values may lead to misinterpretation of CBC data. Current Interpretive Data was last revised on 2017. Imm gran pct 0.4 % [facility] Comment: Interpretive Data Percent cell count reference ranges are not reported, since discordance with absolute values may lead to misinterpretation of CBC data. Current Interpretive Data was last revised on 2017. Lymphocyte pct 11.3 % [facility] Comment: Interpretive Data Percent cell count reference ranges are not reported, since discordance with absolute values may lead to misinterpretation of CBC data. Current Interpretive Data was last revised on 2017. Monocyte pct 5.0 % [facility] Comment: Interpretive Data Percent cell count reference ranges are not reported, since discordance with absolute values may lead to misinterpretation of CBC data. Current Interpretive Data was last revised on 2017. Eosinophil pct 1.6 % [facility] Comment: Interpretive Data Percent cell count reference ranges are not reported, since discordance with absolute values may lead to misinterpretation of CBC data. Current Interpretive Data was last revised on 2017. Basophil pct 0.4 % [facility] Comment: Interpretive Data Percent cell count reference ranges are not reported, since discordance with absolute values may lead to misinterpretation of CBC data. Current Interpretive Data was last revised on 2017. Blood 10/29/2024 11:0 3 AM CDT 10/29/2024 11:21 AM CDT Nathan Moore MD LAB BLOOD ORDERABLES Fin al Result Performing Organization Address City/[facility]/ZIP Co de Phone Number [facility] Department [place] [address] * (ABNORMAL) CBC with auto differential (10/29/2024 11:03 AM CDT) WBC 10.36(H) 3.80 - 9.90 K/cumm Hgb 11.5(L) 11.9 - 15.5 g/dL [facility] Hct 35.0(L) 35.6 - 45.5 % [facility] Plt 345 150 - 400 K/cumm [facility] MPV 11.2 9.1 - 12.3 fL [facility] RBC 4.14 3.90 - 5.20 M/cumm [facility] MCV 84.5 81.3 - 96.4 fL [facility] MCH 27.8 27.1 - 33.3 pg [facility] MCHC 32.9 32.3 - 35.7 g/dL [facility] RDW CV 16.6(H) 11.1 - 14.9 % [facility] RDW SD 50.8(H) 35.7 - 48.1 fL [facility] NRBC abs 0.00 0.00 - 0.01 K/cumm [facility] Blood 10/29/2024 11:0 3 AM CDT 10/29/2024 11:21 AM CDT Nathan Moore MD LAB BLOOD ORDERABLES Fin al Result Performing Organization Address City/[facility]/ZIP Co de Phone Number [facility] Department [place] [address] * Lipase (10/29/2024 11:03 AM CDT) [facility] Lipase 49 10 - 99 Units/L Blood 10/29/2024 11:0 3 AM CDT 10/29/2024 11:21 AM CDT Ari Us MD LAB BLOOD ORDERABLES Final R esult Performing Organization Address [facility] de Phone Number [facility] [place] [address] * (ABNORMAL) Hemoglobin A1c (10/29/2024 11:03 AM CDT) [facility] Hgb A1C 9.1(H) 4.0 - 5.6 % Estimated Average Glucose 214 mg/dL [facility] Comment: The ADA recommends reporting an [...] ORDERABLES Marli l Result Performing Organization Address [facility] Co de Phone Number [facility] Department [place] [address] * Blood gas, venous (10/29/2024 11:03 AM CDT) [facility] pH, Venous 7.35 7.32 - 7.43 PCO2, Venous 50 40 - 50 mmHg [facility] PO2, Venous 41 mmHg [facility] Comment: Interpretive Data No Reference Range Established Current Interpretive Data was last revised on 2017. HCO3 Venous, Calculated 28 20 - 30 mmol/L [facility] BE, venous 1 mmol/L [facility] Comment: Interpretive Data No Reference Range Established Current Interpretive Data was last revised on 2017. Blood 10/29/2024 11:0 3 AM CDT 10/29/2024 11:15 AM CDT Ari Us MD LAB BLOOD ORDERABLES Final R esult Performing Organization Address [facility] de Phone Number [facility] Department [place] [address] * (ABNORMAL) Hepatic function panel (10/29/2024 11:03 AM CDT) [facility] Bilirubin, total 0.4 0.1 - 1.2 mg/dL Bilirubin, direct <0.2 0.1 - 0.3 mg/dL [facility] Protein, pl 8.5 6.5 - 8.5 g/dL [facility] Albumin 4.4 3.5 - 5.0 g/dL [facility] Alk phos 336(H) 40 - 130 Units/L [facility] ALT 42 7 - 45 Units/L [facility] AST 39 10 - 45 Units/L [facility] Blood 10/29/2024 11:0 3 AM CDT 10/29/2024 11:21 AM CDT us Ari Us MD LAB BLOOD ORDERABLES Final R esult Performing Organization Address [facility] Co de Phone Number [facility] Department [place] [address] * (ABNORMAL) Basic metabolic panel (10/29/2024 11:03 AM CDT) [facility] Sodium 138 135 - 145 mmol/L Potassium, pl 4.0 3.3 - 4.9 mmol/L [facility] Chloride 94(L) 97 - 110 mmol/L [facility] CO2 26 22 - 32 mmol/L [facility] Anion gap 18(H) 2 - 15 mmol/L [facility] BUN 28(H) 6 - 25 mg/dL [facility] Creatinine 4.75(H) 0.60 - 1.10 mg/dL [facility] Glucose 358(H) 70 - 199 mg/dL [facility] Comment: Interpretive Data Fasting glucose >/= [...] 2022. Calcium 8.5 8.5 - 10.3 mg/dL [facility] Blood 10/29/2024 11:0 3 AM CDT 10/29/2024 11:21 AM CDT us Ari Us MD LAB BLOOD ORDERABLES Final R esult [facility] Department [place] [address] [place] [address] * (ABNORMAL) POCT ketone, blood (10/29/2024 10:22 AM CDT) [facility] Beta-Hydroxybut yrate, POC 1.2(H) 0.0 - 0.5 mmol/L Blood 10/29/2024 10:2 2 AM CDT 10/29/2024 10:22 AM CDT us Nahtan Moore MD LAB POCT ORDERABLES - DE VICE Final Result [facility] [place] [address] * (ABNORMAL) POCT glucose (10/29/2024 10:21 AM CDT) Glucose, POC 274(H) 70 - 199 mg/dL Blood 10/29/2024 10:2 1 AM CDT 10/29/2024 10:21 AM CDT us Nathan Moore MD LAB POCT ORDERABLES - DE VICE Final Result [facility] [place] [address] * XR Abdomen 1 View AP (10/27/2024 [...] by: Rony Rodriguez M.D. us Micaela Suero FURNITURE RESTORER IMG XR PROCEDURES Final Re sult * TSH (01/09/2024 3:52 PM CDT) Thyroid Stimulating Hormone 2.46 0.30 - 4.20 mcIUnit/mL Blood 01/09/2024 3:52 PM CDT 01/09/2024 4:46 PM CDT us Sailaja Ramos MD LAB BLOOD ORDERABLES Final Result [facility] [place] [address] * Hepatitis panel, acute Blood (12/24/2023 7:26 AM CDT) Hep A IgM Nonreactive Nonreactive Comment: Interpretive Data: If Hep A IgM Ab is reported as Equivocal, a new sample should be drawn in two weeks for testing. Current interpretive data was last revised on 19. Hep B core IgM Nonreactive Nonreactive [facility] Comment: Interpretive Data If HepB Core IgM Ab is reported as Equivocal, a new sample should be drawn in two weeks for testing. Current interpretive data was last revised on 19. Hep C Ab Nonreactive Nonreactive [facility] Comment: Antibodies to HCV not detected. Does [...] last revised on 2019. HepBsAg Nonreactive Nonreactive [facility] Blood 12/24/2023 7:26 AM CDT 12/24/2023 10:33 AM CDT us Odilon Tellez MD LAB MICROBIOLOGY - GENERAL OR DERABLES Final Result [facility] [address] [facility] [place] [address] from Last 3 Months or Most Recently Relevant to Health Maintenance
--- OUTSIDE RECORDS SUMMARY | 2025-01-01 15:40 | XMS_ITS | Encounter Summary ---
Author Organization [facility] Healthcare Address [address] [place] [address] Care Team Providers Care Automotive Instructor Name Role Phone Andrei Chaves MD PhD Unavailable [phone] Olivia Phelps MD Unavailable [phone] Edgardo Aldridge MD Primary Care Provider Odilon Tellez MD Unavailable [phone] Ayaka Thomas MD Unavailable [phone] Yumi Jones NP Unavailable [phone] Mendel Bowling RN Unavailable [phone] Odilon Tellez MD Unavailable [phone] Mavis Barahona RN Unavailable [phone] Encounter Details Date Type Department Care Team (Late st Contact Info) Description 12/29/2024 Results Follow-Up [facility] Family Medicine at [address] [place] [address] Edgardo Aldridge MD [address] [place] [address] [address] [place] [address] SCAN - RADIOLOGY/IMAGING Social History Tobacco Use Types Packs/Day Years Used Date Smoking Tobacco: Never Smokeless Tobacco: Never Alcohol Use Standard Drinks/Week Comments Not Currently 0 (1 standard drink = 0.6 oz pur e alcohol) [facility] Utilities Answer Date Recorded In the [...] often do you attend chur ch or church services? 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 Source: [facility]. 08/20/2024 CP-OVERHEAD DISTRIBUTION ENGINEER Comment:Added from external infection. Source: [facility]. Kleb pneumo [facility] 10/31/2024 10/31/2024 documented as of this encounter Care Teams Automotive Instructor Relationship Specialty Start Date End Date Edagrdo Aldridge MD [address] [facility] [address] [place] [address] PCP - General Family Medicine 04/02/23 Andrei Chaves MD PhD [address] [place] [address] Referring Physician General Surgery 03/17/23 Olivia Phelps MD [address] [facility] [address] [place] [address] Consulting Physician Nephrology 03/17/23 Odilon Tellez MD [address] [facility] [address] [place] [address] Referring Physician Nephrology 11/12/23 Ayaka Thomas MD [address] [facility] [address] [place] [address] Fellow Internal Medicine 12/17/23 Yumi Jones NP [address] [facility] [place] [address] Nurse Practitioner Hospice and Palliative Medicine 08/16/23 Mendel Bowling RN [address] [place] [address] Cigarette And Filter Chief Inspector 11/07/24 Odilon Tellez MD [address] [facility] [address] [place] [address] Consulting Physician Nephrology 12/05/24 Mavis Barahona, RN [address] [facility] [address] [place] [address] Art Objects Supervisor 12/20/24 documented as of this encounter
--- OUTSIDE RECORDS SUMMARY | 2025-01-01 15:40 | XMS_ITS ---
Author Organization [facility] Address [address] [place] [address] Care Team Providers Care Boring Mill Operator Name Role Phone Andrei Chaves MD PhD Unavailable [phone] Olivia Phelps MD Unavailable [phone] Edgardo Aldridge MD Primary Care Provider [phone] Odilon Tellez MD Unavailable [phone] Ayaka Thomas MD Unavailable [phone] Yumi Jones NP Unavailable [phone] Mendel Bowling RN Unavailable [phone] Odilon Tellez MD Unavailable [phone] Mavis Barahona RN Unavailable [phone] Transplant Episode Kidney Candidate [facility] ([place], [place]) - [facility] Referred on 12/05/2024 Marked as Active on 12/28/2024 Reason: Finance Approved Ready for Evaluation Kidney CoordinatorMavis Barahona RN Fax: N/A Email: N/A Scores Score Value Updated Exceptions/Reas ons CPRA Not available EPTS (Calc) 24 01/01/2025 Care Team Name Role Phone Fax Email Mavis Barahona RN Kidney Coordinator [phone] N/A N/A Kristine Leyva School Child Care Attendant [phone] N/A N/A Gely Bates Primary Mica Builder N/A N/A N/A Odilon Tellez MD Referring Physician [phone] N/A Events Pre-Transplant Referred: 12/05/2024 Dialysis History Dialysis History Start End Type Comments Center 10/23/[address] Vera - [facility] Dialysis Center Information Center Phone Fax Address [facility] [phone] [place] [id number]
--- OUTSIDE RECORDS SUMMARY | 2025-01-01 15:40 | XMS_ITS | Encounter Summary ---
Author Organization [facility] Care Team Providers Care Denitrator Operator Name Role Phone Unknown, Notinfile Primary Care Provider Unavail able Lay Villalta MD Primary Care Provider [phone] Tremayne Kebede MD Unavailable [phone] Georgia Mcbride INTERSTATE BUS DRIVER Unavailable [phone] Miscellaneous, Not In File Unavailable Unava ilable Eun Camacho Primary Care Provider + Cony Pemberton POCKET MAKER Unavailable [phone] Antonette Vernon RN Unavailable [phone] Andrei Chaves MD PhD Unavailable [phone] Olivia Phelps MD Unavailable [phone] Edgardo Aldridge MD Primary Care Provider [phone] Odilon Tellez MD Unavailable [phone] Miscellaneous, Not In File Unavailable Unava ilable Ct Bog[address] POCKET MAKER Unavailable [phone] Odilon Tellez MD Unavailable [phone] Tracey Felix RN Unavailable [phone] Ayaka Thomas MD Unavailable [phone] Yumi Jones NP Unavailable [phone] Ruthy Leahy POCKET MAKER Unavailable Unavaila Feli Dominguez RN Unavailable [phone] Mendel Bowling RN Unavailable [phone] Leslie Baptiste [facility] Unavailable [phone] Mendel Bowling RN Unavailable [phone] Odilon Tellez MD Unavailable Mavis Barahona RN Unavailable [phone] Encounter Details Date Type Department Care Team (Latest Contact Info) Description 06/10/2018 Orders Only [facility] CLINCONV Provider, MD [facility] [address] [place] [address] Social History Tobacco Use Types Packs/Day Years Used Date Smoking Tobacco: Never Comments Unknown Sex and Gender Information Value Date Recorded Sex Assigned at Not on file Legal Sex Female 9:16 AM CLINICAL UNIT COORDINATOR Gender Identity Not on file Sexual Orientation Not on file documented as of this encounter Plan of Treatment Not on file documented as of this encounter Procedures Procedure Name Priority Date/Time Associated Diagnosis Comments SCAN - LABS 06/15/2018 12:00 AM CLINICAL UNIT COORDINATOR documented in this encounter Results * SCAN - LABS (06/15/2018 12:00 AM CLINICAL UNIT COORDINATOR) Narrative 06/15/2018 12:00 AM CLINICAL UNIT COORDINATOR Ordered by an unspecified provider. Historical Provider [...] CDT COVID19 02/02/2020 02/02/2020 02/19/2020 3:05 AM CLINICAL UNIT COORDINATOR COVID: Recovered Comment:Added based on recent COVID [...] COVID: Suspected 06/15/2023 06/15/2023 06/15/2023 5:53 PM CLINICAL UNIT COORDINATOR C. difficile suspected 06/24/2023 06/24/202306/26 6:03 AM CDT COVID: Suspected 06/27/2023 06/27/2023 06/27/2023 7:07 PM CDT COVID: Suspected 07/10/2023 07/10/2023 07/10/2023 6:50 AM CDT COVID: Suspected 07/13/2023 07/13/2023 07/13/2023 9:45 PM CDT MRSA Comment:[facility] 06/21/24 10/23/2023 02/09/2024 06/21/2024 6:[address] C. 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 Source: [facility]. 08/20/2024 Carbapenemase, Unspecified Comment:Added from external infection. Source[facility] Kleb pneumo [facility] 09/23/2024 10/31/2024 3:07 PM C DT CP-MACHINE ICER Comment:Added from external infection. Source: [facility]. Kleb pneumo [facility] 10/31/2024 10/31/2024 documented as of this encounter Care Teams Denitrator Operator Relationship Specialty Start Date End Date Unknown, Notinfile PCP - General 12/28/16 08/23/18 Lay Villalta MD PCP - General Family Medicine 08/24/18 07/17/21 Eun Camacho PA PCP - General Family Medicine 07/18/21 03/08/23 Edgardo Aldridge MD [address] [facility] [address] [place] [address] PCP - General Family Medicine 04/02/23 Tremayne Kebede MD Consulting Physician Gastroenterology 02/05/20 3 Georgia Mcbride LPN [address] [facility] [address] [place] [address] ACO Care Tuberculosis Specialist 11/28/20 12/19/20 Miscellaneous, Not In File 07/17/21 03/16/23 Cony Pemberton, POCKET MAKER [address] [facility] ([facility] Mailstop [phone] [place] [address] SHOP Outpatient Hand Trucker 12/07/22 12/07/22 Antonette Vernon, KADY [address] [place] [address] SHOP Outpatient Hand Trucker 12/08/22 01/05/23 Andrei Chaves MD PhD [address] [facility] [address] [place] [address] Referring Physician General Surgery 03/17/23 Olivia Phelps MD [address] [place], [place] [address] Consulting Physician Nephrology 03/17/23 Odilon Tellez MD [address] [place], [place] [address] Consulting Physician Nephrology 05/01/23 12/04/24 Miscellaneous, Not In File 07/08/23 01/24/24 Ct [place], [facility] [address] [facility] ([facility]) Mailstop [phone] [place] [address] SHOP Outpatient Hand Trucker 07/09/23 08/05/23 Odilon Tellez MD [address] [place] [address] Referring Physician Nephrology 11/12/23 Tracey Felix, KADY [address] [place] [address] Historic Interpreter 11/12/23 11/17/23 Ayaka Thomas MD [address] [place] [address] Fellow Internal Medicine 12/17/23 Yumi Jones NP [address] [facility] [address] [place] [address] Nurse Practitioner Hospice and Palliative Medicine 08/16/23 Ruthy Leahy LCSW Border Measurer And Cutter 12/31/23 02/22/24 Feli Boggs, RN [address] [facility] [address] [place] [address] Senior Java J2Ee Developer 12/31/23 01/02/24 Mendel Bowling, KADY [address] [place] [address] Senior Java J2Ee Developer 01/03/24 03/23/24 Leslie Baptiste [address] [place] [address] Pharmacist Pharmacy 01/13/24 02/03/24 Mendel Bowling, KADY [address] [place] [address] Senior Java J2Ee Developer 11/07/24 Odilon Tellez MD [address] [facility] [address] [place] [address] Consulting Physician Nephrology 12/05/24 Mavis Barahona, RN [address] [facility] [address] [place] [address] Historic Interpreter 12/20/24 documented as of this encounter
--- OUTSIDE RECORDS SUMMARY | 2025-01-01 15:40 | XMS_ITS | Clinical Summary ---
Author Organization [facility] Address [address] [address] Phone Care Team Providers Care Composer Teaching Artist Name Role Phone Eun Camacho Primary Care Provider Allergies Active Allergy Reactions Criticality Noted Date [...] - 144 mmol/L 09/04/2022 9:18 AM CDT [facility] POTASSIUM 4.7 3.5 - 5.1 mmol/L 09/04/2022 9:18 AM CDT [facility] CHLORIDE 96(L) 100 - 110 mmol/L 09/04/2022 9:18 AM CDT [facility] CO2, VENOUS 24 22 - 32 mmol/L 09/04/2022 9:18 AM CDT [facility] ANION GAP 23.7(H) 8.0 - 20.0 mmol/L 09/04/2022 9:18 AM CDT [facility] GLUCOSE 443(HH) 70 - 99 mg/dL 09/04/2022 9:18 AM CDT [facility] BUN 28(H) 6 - 20 mg/dL 09/04/2022 9:18 AM CDT [facility] CREATININE, BLOOD 2.94(H) 0.60 - 1.10 mg/dL 09/04/2022 9:18 AM CDT [facility] BUN/CREATININE RATIO 10(L) 12 - 20 ratio 09/04/2022 9:18 AM CDT [facility] TOTAL PROTEIN 8.9(H) 6.0 - 8.3 g/dL 09/04/2022 9:18 AM [facility] ALBUMIN 3.9 3.5 - 5.2 g/dL 09/04/2022 9:18 AM [facility] Comment: The colormetric methods used for the determination of Albumin may lead to falsely elevated test results in patients suffering from renal failure or insufficiency due to interference with other proteins. A/G RATIO 0.8(L) 1.0 - 2.0 09/04/2022 9:18 AM CDT [facility] CALCIUM 9.7 8.9 - 10.3 mg/dL 09/04/2022 9:18 AM [facility] T BILI 0.3 <=1.2 mg/dL 09/04/2022 9:18 AM [facility] SGOT (AST) 11 <=32 U/L 09/04/2022 9:18 AM [facility] SGPT (ALT) 18 <=41 U/L 09/04/2022 9:18 AM [facility] ALKALINE PHOSPHATASE 196(H) 35 - 105 U/L 09/04/2022 9:18 AM [facility] GFR, ESTIMATED 22(L) >=60 09/04/2022 9:18 AM [facility] Comment: Creatinine Clearance is the preferred criteria for selecting drug dose adjustments in renally impaired patients. The GFR is provided as additional pertinent clinical information. GFR is reported in mL/min/1.73 sq m. Calculation based on the Chronic Kidney Disease Epidemiology Collaboration (CKD- EPI) equation refit without adjustment for race. GFR, EST. 23(L) >=60 023 9:18 AM [facility] GFR, EST. NONAFRICAN 19(L) >=60 09/04/2022 9:18 AM [facility] Blood Venipuncture / Unknown 09/04/2022 8:08 AM CDT 09/04/2022 8:39 AM CDT us Giovanni Faith DO CHEMISTRY ORDERABLES Fi nal Result Performing Organization Address City/[facility]/ZIP Co de Phone Number [facility] [address] [place] [address] * (ABNORMAL) Hemoglobin A1C (08/23/2022 9:39 PM CDT) HGB-A1C 9.0(H) 4.0 - 6.0 % 08/23/2022 10:04 PM CDT [facility] Est Average Glucose 211.6 mg/dL 08/23/2022 10:04 PM CDT [facility] Blood Venipuncture / Unknown 08/23/2022 9:39 PM CDT 08/23/2022 9:45 PM CDT Narrative [facility] - 08/23/2022 10:04 PM CDT HEMOGLOBIN A1C: DIABETIC PATIENTS: WELL-CONTROLLED: 6.2 - 7.0 INTERMEDIATE WELL-CONTROLLED: 7.0 - 9.0 POORLY-CONTROLLED: >9.0 us Celia Samuels APRN, TESTING COORDINATOR CHEMISTRY ORDERABLES Final Result Performing Organization Address [facility] Co de Phone Number [facility] [address] [place] [address] from Last 3 Months or Most Recently [...] measures to stabilize the patient. Care Teams Composer Teaching Artist Relationship Specialty Start Date End Date Eun Camacho PAC [address] [facility] [address] [address] ANTHONY [address] [place] [address] PCP - General Family Medicine 06/28/22
--- OUTSIDE RECORDS SUMMARY | 2025-01-01 15:40 | XMS_ITS | Encounter Summary ---
Author Organization [facility] Healthcare Address [address] [place] [address] Care Team Providers Care Grants Director Name Role Phone Andrei Chaves MD PhD Unavailable [phone] Olivia Phelps MD Unavailable [phone] Edgardo Aldridge MD Primary Care Provider Odilon Tellez MD Unavailable [phone] Odilon Tellez MD Unavailable [phone] Ayaka Thomas MD Unavailable Yumi Jones NP Unavailable [phone] Mendel Bowling RN Unavailable [phone] Odilon Tellez MD Unavailable [phone] Mavis Barahona RN Unavailable [phone] Encounter Details Date Type Department Care Team (Late st Contact Info) Description 11/13/2024 Results Follow-Up [facility] Family Medicine at [address] [place] [address] Edgardo Aldridge MD [address] [place] [address] [address] [place] [address] CT Chest WO Contrast Social History Tobacco Use Types Packs/Day Years Used Date Smoking Tobacco: Never Smokeless Tobacco: Never Alcohol Use Standard Drinks/Week Comments Not Currently 0 (1 standard drink = 0.6 oz pur e alcohol) [facility] Utilities Answer Date Recorded In the past [...] often do you attend chur ch or mosque services? Never 11/07/2024 Do you belong to any clubs o r organizations such as restorationist groups, unions, fraternal or athletic groups, or [...] Date Recorded PHQ-2 Total Score 0 11/01/2024 [facility] [place] of Occupat ional Health - Occupational Stress [...] on file Legal Sex Female 9:16 AM BEEF LUGGER Gender Identity Not on file Sexual Orientation [...] 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 Source: [facility]. 08/20/2024 CP-MEDIA LAW FACULTY MEMBER Comment:Added from external infection. Source: [facility]. Kleb pneumo [facility] 10/31/2024 10/31/2024 documented as of this encounter Care Teams Grants Director Relationship Specialty Start Date End Date Edgardo Aldridge MD [address] [facility] [address] 4 [place] [address] PCP - General Family Medicine 04/02/23 Andrei Chaves MD PhD [address] [facility] [address] [place] [address] Referring Physician General Surgery 03/17/23 Olivia Phelps MD [address] [facility] [address] 4 [place] [address] Consulting Physician Nephrology 03/17/23 Odilon Tellez MD [address] [facility] [address] or 4 [place] [address] Consulting Physician Nephrology 05/01/23 12/04/24 Odilon Tellez MD [address] [facility] 2 or 4 [place] [address] Referring Physician Nephrology 11/12/23 Ayaka Thomas MD [address] [facility] [address] or 4 [place] [address] Fellow Internal Medicine 12/17/23 Yumi Jones NP [address] [facility] [address] [place] [address] Nurse Practitioner Hospice and Palliative Medicine 08/16/23 Mendel Bowling RN [address] [facility] [address] [place] [address] Metal Turner 11/07/24 Odilon Tellez MD [address] [facility] [address] [place] [address] Consulting Physician Nephrology 12/05/24 Mavis Barahona, RN [address] [facility] [address] [place] [address] Director Of Emergency Nursing 12/20/24 documented as of this encounter
--- OUTSIDE RECORDS SUMMARY | 2025-01-01 15:40 | XMS_ITS | Encounter Summary ---
Author Organization [facility] Healthcare Address [address] [place] [address] Care Team Providers Care Bakery Worker Name Role Phone Andrei Chaves MD PhD Unavailable [phone] Olivia Phelps MD Unavailable [phone] Edgardo Aldridge MD Primary Care Provider Odilon Tellez MD Unavailable [phone] Odilon Tellez MD Unavailable [phone] Ayaka Thomas MD Unavailable [phone] Yumi Jones NP Unavailable [phone] Mendel Bowling RN Unavailable [phone] Odilon Tellez MD Unavailable [phone] Mavis Barahona RN Unavailable [phone] Encounter Details Date Type Department Care Team (Late st Contact Info) Description 11/22/2024 Results Follow-Up [facility] Family Medicine at [address] [place] [address] Edgardo Aldridge MD [address] [place] [address] [address] [place] [address] XR Ankle Right 3+ Vw Social History Tobacco Use Types Packs/Day Years Used Date Smoking Tobacco: Never Smokeless Tobacco: Never Alcohol Use Standard Drinks/Week Comments Not Currently 0 (1 standard drink = 0.6 oz pur e alcohol) [facility] Utilities Answer Date Recorded In [...] any clubs o r organizations such as quaker groups, unions, fraternal or athletic groups, or [...] Date Recorded PHQ-2 Total Score 0 11/01/2024 [facility] [place] of Occupat ional Health - Occupational Stress [...] place to sleep or slept in a alf (including now)? No 08/30/2023 PHQ-9 Answer Date [...] any time in the past 12 m [facility], were you homeless or living in a alf (including now)? No 11/07/2024 Personal Safety Answer Date Recorded Have you ever been in or are you currently in a harmful physical or emotional relationship or is someone making you feel afraid or unsafe? Denies 10/30/2024 Comments Unknown Sex and Gender Information Value Date Recorded Sex Assigned at Not on file Legal Sex Female 9:16 AM ENGINEERING INSTRUCTOR Gender Identity Not on file Sexual [...] infection. Source: [facility]. 08/20/2024 CP-SHOT CORE DRILL OPERATOR Comment:Added from external infection. Source: [facility]. Kleb pneumo [facility] 10/31/2024 10/31/2024 documented as of this encounter Care Teams Bakery Worker Relationship Specialty Start Date End Date Edgardo Aldridge MD [address] [facility] [address] or 4 [place] [address] PCP - General Family Medicine 04/02/23 Andrei Chaves MD PhD [address] [facility] [address] [place] [address] Referring Physician General Surgery 03/17/23 Olivia Phelps MD [address] [facility] 2 [address] 4 [place] [address] Consulting Physician Nephrology 03/17/23 Odilon Tellez MD [address] [facility] 2 or 4 [place] [address] Consulting Physician Nephrology 05/01/23 12/04/24 Odilon Tellez MD [address] [facility] 2 or 4 [place] [address] Referring Physician Nephrology 11/12/23 Ayaka Thomas MD [address] [facility] 2 or 4 [place] [address] Fellow Internal Medicine 12/17/23 Yumi Jones NP [address] [facility] [address] [place] [address] Nurse Practitioner Hospice and Palliative Medicine 08/16/23 Mendel Bowling RN [address] [facility] [address] [place] [address] Banking Specialist 11/07/24 Odilon Tellez MD [address] [facility] [address] [place] [address] Consulting Physician Nephrology 12/05/24 Mavis Barahona, RN [address] [facility] [address] [place] [address] Entry Level Marketing Representative 12/20/24 documented as of this encounter
--- OUTSIDE RECORDS SUMMARY | 2025-01-01 15:40 | XMS_ITS | Encounter Summary ---
Author Organization [facility] Facility Care Team Providers Care Veterinary Nurse Name Role Phone Unknown, Notinfile Primary Care Provider Unavail able Lay Villalta MD Primary Care Provider [phone] Tremayne Kebede MD Unavailable [phone] Georgia Mcbride SPOOLER Unavailable [phone] Miscellaneous, Not In File Unavailable Unava ilable Eun Camacho Primary Care Provider + Cony Pemberton OIL HEATER INSTALLER Unavailable [phone] Antonette Vernon RN Unavailable [phone] Andrei Chaves MD PhD Unavailable [phone] Olivia Phelps MD Unavailable [phone] Edgardo Aldridge MD Primary Care Provider [phone] Odilon Tellez MD Unavailable [phone] Miscellaneous, Not In File Unavailable Unava ilable Ct Boggs OIL HEATER INSTALLER Unavailable [phone] Odilon Tellez MD Unavailable [phone] Tracey Felix RN Unavailable [phone] Ayaka Thomas MD Unavailable [phone] Yumi Jones NP Unavailable [phone] Ruthy Leahy OIL HEATER INSTALLER Unavailable Unavaila ble Feli Boggs RN Unavailable [phone] Mendel Bowling RN Unavailable [phone] Leslie Baptiste [facility] Unavailable Mendel Bowling RN Unavailable [phone] Odilon Tellez MD Unavailable [phone] Maivs Barahona RN Unavailable [phone] Encounter Details Date Type Department Care Team (Latest Contact Info) Description 06/07/2018 Orders Only [facility]INCON[facility] ProviderSotero MD [address] [place] [address] Social History Tobacco Use Types Packs/Day Years Used Date Smoking Tobacco: Never Comments Unknown Sex and Gender Information Value Date Recorded Sex Assigned at Not on file Legal Sex Female 9:16 AM HAND TUBE WINDER Gender Identity Not on file Sexual Orientation Not on file documented as of this encounter Plan of Treatment Not on file documented as of this encounter Procedures Procedure Name Priority Date/Time Associated Diagnosis Comments SCAN - LABS 2018 12:00 AM HAND TUBE WINDER SCAN - LABS 06/13/2018 12:00 AM HAND TUBE WINDER SCAN - LABS 06/08/2018 12:00 AM HAND TUBE WINDER documented in this encounter Results * SCAN - LABS (2018 12:00 AM HAND TUBE WINDER) Narrative 2018 12:00 AM HAND TUBE WINDER Ordered by an unspecified provider. Historical Provider Final Res ult * SCAN - LABS (06/13/2018 12:00 AM HAND TUBE WINDER) Narrative 06/13/2018 12:00 AM HAND TUBE WINDER Ordered by an unspecified provider. Historical Provider Final Res ult * SCAN - LABS (06/08/2018 12:00 AM HAND TUBE WINDER) Narrative 06/08/2018 12:00 AM HAND TUBE WINDER Ordered by an unspecified provider. us Historical [...] CDT COVID19 02/02/2020 02/02/2020 02/19/2020 3:05 AM HAND TUBE WINDER COVID: Recovered Comment:Added based on recent COVID [...] COVID: Suspected 06/15/2023 06/15/2023 06/15/2023 5:53 PM HAND TUBE WINDER C. difficile suspected 06/24/2023 06/24/202306/26 6:03 AM CDT COVID: Suspected 06/27/2023 06/27/202306/2606/27/2023 7:07 PM CDT COVID: Suspected 07/10/2023 07/10/2023 07/10/2023 6:50 AM CDT COVID: Suspected 07/13/2023 07/13/2023 07/13/2023 9:45 PM CDT MRSA Comment:MRSA Isolation Alf 06/21/24 10/23/2023 02/09/2024 06/21/2024 6:[address] C. 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 Source: [facility]. 08/20/2024 Carbapenemase, Unspecified Comment:Added from external infection. Source: [facility]. Kleb pneumo [facility] 09/23/2024 10/31/2024 3:07 PM C DT CP-AIRDOX FITTER Comment:Added from external infection. Source: [facility]. Kleb pneumo [facility] 10/31/2024 10/31/2024 documented as of this encounter Care Teams Veterinary Nurse Relationship Specialty Start Date End Date Unknown, Notinfile PCP - General 12/28/16 08/23/18 Lay Villalta MD PCP - General Family Medicine 08/24/18 07/17/21 Eun Camacho PA PCP - General Family Medicine 07/18/21 03/08/23 Edgardo Aldridge MD [address] [facility] [place] [address] or 4 [place] [address] PCP - General Family Medicine 04/02/23 Tremayne Kebede MD Consulting Physician Gastroenterology 02/05/20 3 Georgia Mcbride LPN [address] [place] [address] [address] [facility] [address] [place] [address] ACO Care Inserter Promotional Item 11/28/20 12/19/20 Miscellaneous, Not In File 07/17/21 03/16/23 Cony Pemberton, OIL HEATER INSTALLER [address] [facility] ([facility] Mailstop [phone] [place] [address] SHOP Outpatient Integration Developer 12/07/22 12/07/22 Antonette Vernon, RN [address] [facility] [address] [place] [address] SHOP Outpatient Integration Developer 12/08/22 01/05/23 [place] PhD [address] [place] [address] [address] [place] [address] Referring Physician General Surgery 03/17/23 Olivia Phelps MD [address] [facility] [place] [address] or 4 [place] [address] Consulting Physician Nephrology 03/17/23 Odilon Tellez MD [address] [facility] [place] 2 or 4 [place] [id number] Consulting Physician Nephrology 05/01/23 12/04/24 Miscellaneous, Not In File 07/08/23 01/24/24 Ct Boggs, OIL HEATER INSTALLER [address] [facility] ([facility] Mailstop [phone] [place] [address] SHOP Outpatient Integration Developer 07/09/23 08/05/23 Odilon Tellez MD [address] [facility] [place] 2 or 4 [place] [address] Referring Physician Nephrology 11/12/23 Tracey Felix, RN [address] [facility] [address] [place] [address] Missile Facilities Repairer 11/12/23 11/17/23 Ayaka Thomas MD [address] [facility] [address] [place] [address] Fellow Internal Medicine 12/17/23 Yumi Jones NP [address] [facility] [address] [place] [address] Nurse Practitioner Hospice and Palliative Medicine 08/16/23 Ruthy Leahy LCSW Optometrist 12/31/23 02/22/24 Feli Boggs RN [address] [place] [address] [facility] [address] [place] [address] Marketing Outreach Coordinator 12/31/23 01/02/24 Mendel Bowling, KADY [address] [place] [address] [facility] [address] [place] [address] Marketing Outreach Coordinator 01/03/24 03/23/24 Leslie Baptiste [address] [facility] [address] [place] [address] Pharmacist Pharmacy 01/13/24 02/03/24 Mendel Bowling RN [address] [place] [address] [facility] [address] [place] [address] Marketing Outreach Coordinator 11/07/24 Oidlon Tellez MD [address] [facility] [address] [place] [address] Consulting Physician Nephrology 12/05/24 Mavis Barahona, RN [address] [address] Missile Facilities Repairer 12/20/24 documented as of this encounter
--- OUTSIDE RECORDS SUMMARY | 2025-01-01 15:40 | XMS_ITS | Clinical Summary ---
Author Organization [facility] [employer] Address [address] [facility] [place] [address] Care Team Providers Care Elastic Assembler Name Role Phone Edgardo Aldridge MD Primary Care Provider [phone] Source Comments [facility],non-owned Affiliates and Associated Physician Practices is amultiple site organization consisting of ambulatory clinics and hospital sitesin [place]. This disclosure is being madepursuant to the Care Everywhere program and may not contain all information available regarding this patient. 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 Not on file Not on file [...] examination HEMOGLOBIN A1C Routine 06/08/2018 7:21 AM APPARATUS OPERATOR from Last 3 Months or Most Recently Relevant to Health Maintenance Results * (ABNORMAL) BASIC METABOLIC PANEL (CALCIUM TOTAL) (02/01/2024 9:01 AM CDT) BUN 54(H) 7 - 26 mg/dL 02/01/2024 9:58 AM [facility] Creatinine 6.37(H) 0.56 - 0.96 mg/dL 02/01/2024 9:58 AM [facility] Sodium 136 136 - 145 mmol/L 02/01/2024 9:58 AM [facility] Potassium 5.8(H) 3.5 - 4.5 mmol/L 02/01/2024 9:58 AM [facility] Chloride 106 98 - 107 mmol/L 02/01/2024 9:58 AM [facility] CO2 20(L) 22 - 29 mmol/L 02/01/2024 9:58 AM [facility] Glucose 35(LL) 70 - 115 mg/dL 02/01/2024 9:58 AM [facility] Calcium 8.4 8.4 - 10.2 mg/dL 02/01/2024 9:58 AM [facility] Anion Gap 10 6 - 16 02/01/2024 9:58 AM [facility] BUN/Creatinine Ratio 8 7 - 23 02/01/2024 9:58 AM [facility] Osmolality Calculated 293 275 - 295 mOsm/kg 02/01/2024 9:58 AM CDT [facility] eGFR by CKD-EPI 9(L) >=90 mL/min/1.7 3 m2 02/01/2024 9:58 AM CDT [facility] Blood BLOOD SPECIMEN / Unknown Venipuncture / Unknown 02/01/2024 9:01 AM CDT 02/01/2024 9:08 AM CDT Tess Dunham MD LAB - CHEMISTRY ORDERABLES Final Result [facility] [address] [place] [address], [facility] [phone] * (ABNORMAL) HEMOGLOBIN A1C (06/08/2018 7:21 AM APPARATUS OPERATOR) [facility] Hemoglobin A1c 14.5(H) 4.2 - 6.3 % 06/08/2018 8:06 AM APPARATUS OPERATOR [facility] Estimated Average Glucose 369 mg/dL 06/08/2018 8:06 AM APPARATUS OPERATOR [facility] Blood BLOOD SPECIMEN / Unknown Lab Venipuncture / Unknown 06/08/2018 7:21 AM APPARATUS OPERATOR 06/08/2018 7:37 AM APPARATUS OPERATOR Corina Simmons MD LAB - CHEMISTRY ORDERABLES Final Result [facility] [address] [place] [address] from Last 3 Months or Most Recently Relevant to Health [place] [address] MEDICAID - [place] [facility] MEDICAID - [place] MEDICARE MEDICAID [facility] Advance Directives * Full Code (Latest [...] 10:29 AM 07/09/2015 1:11 PM Care Teams Elastic Assembler Relationship Specialty Start Date End Date Edgardo Aldridge MD [address] [facility] [place] [address] PCP - General Family Medicine 12/28/23
--- OUTSIDE RECORDS SUMMARY | 2025-01-01 15:40 | XMS_ITS | Encounter Summary ---
Author Organization [facility] Facility Care Team Providers Care Workers Compensation Paralegal Name Role Phone Unknown, Notinfile Primary Care Provider Unavail able Lay Villalta MD Primary Care Provider [phone] Tremayne Kebede MD Unavailable [phone] Georgia Mcbride [place] Unavailable [phone] Miscellaneous, Not In File Unavailable Unava ilable Eun Camacho Primary Care Provider + Cony Pemberton LOADER UNLOADER Unavailable [phone] Antonette Vernon RN Unavailable [phone] Andrei Chaves MD PhD Unavailable [phone] Olivia Phelps MD Unavailable [phone] Edgardo Aldridge MD Primary Care Provider [phone] Odilon Tellez MD Unavailable [phone] Miscellaneous, Not In File Unavailable Unava ilable Ct Boggs LOADER UNLOADER Unavailable [phone] Odilon Tellez MD Unavailable [phone] Tracey Felix RN Unavailable [phone] Ayaka Thomas MD Unavailable [phone] Yumi Jones NP Unavailable [phone] Ruthy Leahy LOADER UNLOADER Unavailable Unavaila Feli Dominguez RN Unavailable Mendel Bowling RN Unavailable [phone] Leslie Baptiste [facility] Unavailable [phone] Mendel Bowling RN Unavailable [phone] Odilon Tellez MD Unavailable [phone] Mavis Barahona RN Unavailable [phone] Encounter Details Date Type Department Care Team (Latest Contact Info) Description 02/01/2017 Orders Only [facility] CLINCONV Provider, MD [facility] [address] [place] [id number] Social History Tobacco Use Types Packs/Day Years Used Date Smoking Tobacco: Never Comments Unknown Sex and Gender Information Value Date Recorded Sex Assigned at Not on file Legal Sex Female 9:16 AM WASTEWATER DESIGN ENGINEER Gender Identity Not on file Sexual Orientation [...] CDT COVID19 02/02/2020 02/02/2020 02/19/2020 3:05 AM WASTEWATER DESIGN ENGINEER COVID: Recovered Comment:Added based on recent COVID [...] COVID: Suspected 06/15/2023 06/15/2023 06/15/2023 5:53 PM WASTEWATER DESIGN ENGINEER C. 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 Source: [facility]. 08/20/2024 Carbapenemase, Unspecified Comment:Added from external infection. Source: [facility]. Kleb pneumo KPC 09/23/2024 10/31/2024 3:07 PM C DT CP-MANAGER GALLERY Comment:Added from external infection. Source: [facility]. Kleb pneumo KPC 10/31/2024 10/31/2024 documented as of this encounter Care Teams Workers Compensation Paralegal Relationship Specialty Start Date End Date Unknown, Notinfile PCP - General 12/28/16 08/23/18 Lay Villalta MD PCP - General Family Medicine 08/24/18 07/17/21 Eun Camacho PA PCP - General Family Medicine 07/18/21 03/08/23 Edgardo Aldridge MD [address] [facility] [address] [place] [address] PCP - General Family Medicine 04/02/23 Tremayne Kebede MD Consulting Physician Gastroenterology 02/05/20 3 Georgia Mcbride LPN [address] [facility] [address] [place] [address] ACO Care Wood Heel Flap Trimmer 11/28/20 12/19/20 Miscellaneous, Not In File 07/17/21 03/16/23 Cony Pemberton, LOADER UNLOADER [address] [facility] ([facility]) Mailstop [id number] [place] [address] SHOP Outpatient After School Program Director 12/07/22 12/07/22 Antonette Vernon, KADY [address] [place] [address] SHOP Outpatient After School Program Director 12/08/22 01/05/23 Andrei Chaves MD PhD [address] [facility] [address] [place] [address] Referring Physician General Surgery 03/17/23 Olivia Phelps MD [address] [employer] [address] [place], [place] [address] Consulting Physician Nephrology 03/17/23 Odilon Tellez MD [address] [facility] [address] [place] [address] Consulting Physician Nephrology 05/01/23 12/04/24 Miscellaneous, Not In File 07/08/23 01/24/24 Ct Bog[address], [facility] [address] [facility] ([facility]) Mailstop [phone] [place] [address] SHOP Outpatient After School Program Director 07/09/23 08/05/23 Odilon Tellez MD [address] [facility] [address] [place] [address] Referring Physician Nephrology 11/12/23 Tracey Felix, RN [address] [place] [address] Income Tax Consultant 11/12/23 11/17/23 Ayaka Thomas MD [address] [place] [address] Fellow Internal Medicine 12/17/23 Yumi Jones NP [address] [facility] [address] [place] [address] Nurse Practitioner Hospice and Palliative Medicine 08/16/23 Ruthy Leahy LCSW Fishing Vessel Captain 12/31/23 02/22/24 Feli Boggs RN [address] [place] [address] [address] [place] [address] Machine Sorter 12/31/23 01/02/24 Mendel Bowling, KADY [address] [place] [address] [address] [place] [address] Machine Sorter 01/03/24 03/23/24 Leslie Baptiste [address] [place] [address] Pharmacist Pharmacy 01/13/24 02/03/24 Mendel Bowling, KADY [address] [place] [address] [address] [place] [address] Machine Sorter 11/07/24 Odilon Tellez MD [address] [facility] [address] [place] [address] Consulting Physician Nephrology 12/05/24 Mavis Barahona, RN [address] [facility] [address] [place] [address] Income Tax Consultant 12/20/24 documented as of this encounter
--- OUTSIDE RECORDS SUMMARY | 2025-01-01 15:40 | XMS_ITS | Encounter Summary ---
Author Organization [facility] Address [address] [place] [address] Phone Care Team Providers Care Extension Worker Name Role Phone Shown, Devang Alegre DO Primary Care Provider [phone] Encounter Details Date Type Department Care Team (Late st Contact Info) Description 12/03/2021 Telephone [place] [id number] [place] [id number] Leslie Pruitt Social History Tobacco Use Types Packs/Day Years Used Date Smoking Tobacco: Never Smokeless Tobacco: Never Alcohol Use Standard Drinks/Week Comments No 0 (1 standard drink = 0.6 oz pur e alcohol) Comments No Sex and Gender Information Value Date Recorded Sex Assigned at Female 11/05/2020 3:34 PM CDT Legal Sex Female 12:26 PM CREATIVE DESIGNER Gender Identity Female 11/05/2020 3:34 PM CDT Sexual Orientation Straight 11/05/2020 3: 34 PM CDT COVID-19 Exposure Response Date Recorded In the last 10 days, have yo u been in contact with someone who was confirmed or suspected to have Coronavirus/COVID-19? No / Unsure 12/03/2021 10:01 AM CDT documented as of this encounter Plan of Treatment Not on file documented as of this encounter Visit Diagnoses Not on filedocumented in this encounter Additional Health Concerns Assessment Noted Time A fall risk assessment has been complete d for the patient 03/29/2021 7:04 AM CREATIVE DESIGNER documented as of this encounter Care Teams Extension Worker Relationship Specialty Start Date End Date Shown, Devang Alegre DO [address] [address] PCP - General Family Medicine 09/11/21 12/06/24 documented as of this encounter
[2025-01-01] MEDS: SODIUM CHLORIDE 0.9% IV 1,000 ML 999 ML IV CONT (16:00)
--- NOTE | 2025-01-01 16:00 | PC.NURSE ---
Pt. denies any current CP.
--- NOTE | 2025-01-01 16:01 | ECG_ITS ---
Test Date: 2025-01-01 16:06:48 Measurements Intervals Hailey Rate: 98 P: 23 MO: 164 QRS: 4 QRSD: 86 T: 40 QT: 386 QTc: 494 Interpretive Statements SINUS RHYTHM PROLONGED QT INTERVAL ABNORMAL ECG Compared to ECG 01/01/2025 11:38:12 Prolonged QT interval no longer present Electronically Signed On 01-02-2025 08:05:36 CDT by Odilon Gilman M.D.
[2025-01-01 16:12] LABS: Anion Gap 20 mmol/L (4-12); Blood Urea Nitrogen 26 mg/dL (7-17); Calcium 7.0 mg/dL (8.4-10.2); Carbon Dioxide 15 mmol/L (22-30); Chloride 97 mmol/L (98-107); Estimated CRCL calculation 9 ml/min; Estimated Glomerular Filt Rate 6; Glucose 512 mg/dL (65-110); Magnesium 1.9 mg/dL (1.6-2.3); Potassium 4.5 mmol/L (3.4-5.0); Sodium 132 mmol/L (137-145)
[2025-01-01 16:14] LABS: Hemoglobin A1C 8.4 % (<5.7)
[2025-01-01 16:23] LABS: Troponin I < 0.012 ng/mL (0.000-0.034)
[2025-01-01] MEDS: CALCIUM GLUC 2,000 MG/NS 100ML 2,000 MG/100 ML BAG 100 MG IVPB (16:23)
[2025-01-01] MEDS: INSULIN HUMAN REGULAR (*BKC) 100 UNITS/ML 9.7 UNITS IV PUSH (17:17)
[2025-01-01] MEDS: INSULIN HUMAN REGULAR (*BKC) 100 UNITS in SODIUM CHLORIDE 0.9% IV 99 ML 6.5 UNITS IV CONT (17:18)
[2025-01-01 17:59] LABS: MRSA (PCR) NOT DETECTED (NOT DETECTE)
[2025-01-01] MEDS: HYDROmorphone HCL INJ (*CRX) 1 MG/ML SYR IV PUSH ×2 (18:09→21:04)
[2025-01-01] MEDS: SODIUM CHLORIDE 0.9% IV 1,000 ML 75 ML IV CONT (18:16)
--- NOTE | 2025-01-01 18:37 | P.CONNP_ITS ---
Assessment and Plan Assessment and plan (1) End stage renal disease: Code(s): N18.6 - End stage renal disease Status: Chronic Assessment and Plan: * HD tomorrow * continue //Wednesday dialyis schedule while hospitalized * follow electrolytes, volume status, and clearance * outpatient dialysis clinic = [facility] in * primary operational trainer = Dr. Odilon Tellez (2) DKA (diabetic ketoacidosis): Qualifiers: Diabetes mellitus complication detail: without coma Diabetes mellitus type: type 1 Qualified Code(s): E10.10 - Type 1 diabetes mellitus with ketoacidosis without coma Code(s): E11.10 - Type 2 diabetes mellitus with ketoacidosis without coma Status: Acute Assessment and Plan: * as noted by evaluation in ER * recurrent and multiple ER visits/hospitalizations for this use (usually gets most of her care at [facility]) * 1L IVFs in ER and initiated on insulin gtt * dialysis should help correct this as well (3) Hypertension: Code(s): I10 - Essential (primary) hypertension Status: Chronic Assessment and Plan: * quite elevated on admission * resume home medications * follow trend of hemodyanmics (4) Anemia: Code(s): D64.9 - Anemia, unspecified Status: Chronic Assessment and Plan: * due to ESRD * may drop with IVFs given * Epogen with HD * follow trend of H/H (5) Abdominal pain: Code(s): R10.9 - Unspecified abdominal pain Status: Acute Assessment and Plan: * presumably related to nausea/vomiting and gastroparesis * CT of C/A/P ordered * previous CTA of C/A/P noted (done on 12/22/24) (6) Nausea & vomiting: Qualifiers: Vomiting type: unspecified Qualified Code(s): R11.2 - Nausea with vomiting, unspecified Code(s): R11.2 - Nausea with vomiting, unspecified Status: Acute Assessment and Plan: * chronic and long standing issue (per patient and review of records) * cyclic in nature * thought to be secondary to diabetic gastroparesis * apparently, there was some discussion about placing J-tube to ensure adequate nutrition given this issue (7) Diabetic gastroparesis: Code(s): E11.43 - Type 2 diabetes mellitus with diabetic autonomic (poly)neuropathy; K31.84 - Gastroparesis Status: Acute Assessment and Plan: * known and long standing issue * likely precipiting factor for admission symptoms (8) Type 1 diabetes: Qualifiers: Diabetes mellitus complication status: with hyperglycemia Qualified Code(s): E10.65 - Type 1 diabetes mellitus with hyperglycemia Code(s): E10.9 - Type 1 diabetes mellitus without complications Status: Chronic Assessment and Plan: * follow accu-chek * plan transition to SSI and Lantus once DKA resolved * glycemic control per can filling and closing machine tender/hospitalist I will continue to follow the patient with you while she remains hospitalized and make further recommendations as deemed necessary. Thank you for allowing me to participate in the care of this patient. L History of Present Illness Reason for Consult Consult date: 01/01/25 Reason for consult: end stage renal disease Chief Complaint Chief complaint: dka History of Present Illness Narrative: The patient is a 29-year-old female with extensive past medical history as outlined below who presented to [facility] Emergency Room with nausea and vomiting. Apparently, the patient has a chronic history of nausea and cyclical vomiting complicated by diabetic gastroparesis and has been seen in the emergency room of several different hospitals including [facility] in [place] and [facility] in [place] for similar symptoms. Some of these ER visits resulted admission due to her recurrent episodes of DKA as well. From what I can tell in reviewing the electronic medical records from these to hospitals, along with 3 ER visits, as well as her hospitalizations, she also has several episodes of leaving the hospital against medical advice as well. She was last seen at [facility] ER on 12/28 and left AMA; she was apparently found to have DKA during that ER visit as well. Her nausea and vomiting seem to worsen in the last couple of days although has been present for longer than this. She reports that she has been unable to tolerate any oral intake for the past 24-48 hours and her symptoms seem to be somewhat consistent with her usual cyclic vomiting and gastroparesis symptoms. Apparently, it has been recommended that she get a J-tube placement for adequate nutrition given her recurrent bouts of DKA, nausea, and vomiting but I am unclear on the status of this intervention. Along with these GI symptoms she also described some nonspecific chest pain as well. As the symptoms continued to progress she presented to the emergency room for further assessment. Workup and evaluation emergency room demonstrated the patient be hemodynamically stable if not hypertensive with a systolic BP in the 190s, slightly tachycardic, but afebrile. Routine testing demonstrated a white blood count of 5.6, hemoglobin 11.1, platelet count 195, sodium 132, potassium 4.5, bicarb 15, BUN 26 creatinine 7.81 with a glucose of 512 and a calcium of 7.2. Beta hydroxybutyrate was 5.6 and VBG showed a pH of 7.27, pCO2 of 35 and PO2 of 46 with a bicarb of 16 on room air. Given these findings suggestive of DKA, the patient received 1 L normal saline bolus and was subsequently instituted on insulin drip. She was subsequently transferred to the ICU for further evaluation therapy. Renal consultation was requested due to her end-stage renal disease. The patient normally dialyzes on a Wednesday, , Wednesday schedule at [facility] [place] under the care of Dr. Odilon Tellez. She states that she has been on dialysis for about a year or so and that her kidney disease is secondary to her type 1 diabetes. As far as I am aware, she received her last dialysis treatment on Wednesday but have been unable to confirm this. As already mentioned above, she has had multiple admissions for nausea and cyclic vomiting in association with a diabetic gastroparesis as well as diabetic ketoacidosis. She usually gets most of her care at [facility] and not entirely clear why she presented to [facility] this time. Her ER visits and hospitalizations are somewhat complicated by her leaving against medical advice on numerous occasions and there has been some concern that she exhibits drug- seeking behavior for some of her symptoms as well. In spite of her known history of end-stage renal disease, she has no critical electrolyte abnormalities and her volume status appears to be stable although of course she has an acidosis secondary to her DKA. She is due for dialysis tomorrow. Currently, the time my evaluation, she does not appear to be in any acute distress. Review of Systems 2 Review of Systems: As per HPI. [facility] Past Medical History Medical History Diabetic gastroparesis Port-A-Cath in place Type 1 diabetes Depression Surgical History Surgical History History of cholecystectomy Family History Family History Other Family history of cardiovascular disease Social History Social History Smoking status: Never smoker Alcohol intake: never Substance use: never Lack of Transportation: No Lack of Food: Never True Current Housing: I Have Housing Concerned About Future Housing: No Difficulty Paying Gas/Electric Bills: No Difficulty Paying for Meds: No Currently Unemployed: YES Education: High School Diploma/GED Difficulty w/ Childcare or Family Care: No Gender identity (if verbalized by the patient): Female Spiritual care concerns: No Meds Home Medications and Allergies Home Medications ?Medication ?Instructions ?Recorded ?Confirmed ?Type insulin glargine 100 unit/mL (3 15 unit subcut HS 05/2001/01/25 History mL) subcutaneous pen (Lantus Solostar U-100 Insulin) insulin lispro 100 unit/mL 1 sliding scale dose subcut PRN 06/02/22 01/01/25 History subcutaneous pen losartan 25 mg tablet 25 mg PO DAILY 06/02/2212/18 History ondansetron 4 mg disintegrating 4 mg PO Q4H PRN Nausea And Vomiting 06/02/22 01/01/25 History tablet amlodipine 10 mg tablet 10 mg PO DAILY 01/01/2512/18 History carvedilol 12.5 mg tablet 12.5 mg PO Q12H 01/01/25 History diphenhydramine HCl 25 mg capsule 25 mg PO Q8H PRN [place] and 01/01/25 01/01/25 History (Banophen) vomiting escitalopram oxalate 10 mg tablet 10 mg PO DAILY 01/0101/01/25 History gabapentin 100 mg capsule 100 mg PO TID 01/01/2501/01 History glucagon 0.5 mg/0.1 mL 0.5 mg subcut PRN PRN hypogl ycemia 01/01/25 01/01/25 History subcutaneous auto-injector (Gvoke HypoPen 2-Pack) metoprolol succinate 200 mg 200 mg PO DAILY 01/01/25 0 01/01/25 History tablet,extended release 24 hr Allergies Allergy/AdvReac Type Severity Reaction Status Date / Time metoclopramide (From Reglan) Allergy Intermediate Muscle Verified 01/01/25 16:47 Spasms hydralazine Allergy Hives Verified 01/01/25 16:47 Vital Signs Vital Signs Temp Pulse Resp BP Pulse Ox O2 Del Method 01/01/25 18:00 98 18 165/97 H 96 01/01/25 16:05 99 24 H 197/107 H 97 01/01/25 14:40 96 16 164/101 H 98 01/01/25 13:59 97 14 176/98 H 100 01/01/25 13:31 109 H 16 195/115 H 100 01/01/25 11:55 Room Air 01/01/25 11:47 98.3 F 101 H 16 197/112 H 100 Room Air Exam 2 Narrative: GENERAL APPEARANCE: well developed well nourished female in no acute distress HEENT: normocephalic, atraumatic, normal conjunctiva and sclera, nares patient NECK: no lymphadenopathy, thyromegaly, or JVD MOUTH: normal lips, teeth, and gums CARDIOVASCULAR: RRR, normal S1 and S2, no rub RESPIRATORY: clear to auscultation bilaterally ABDOMEN: soft, nontender, nondistended, positive bowel sounds present EXTREMITIES: no evidence of cyanosis, clubbing, or edema NEUROLOGICAL: alert and oriented x 3; CN II - XII intact bilaterally; no focal deficits noted Results Lab Results 01/02/25 05:50 01/02/25 05:50 Lab results: Most recent lab results Calcium 7.4 mg/dL (8.4-10.2) L 01/01/25 23:50 Phosphorus 6.3 mg/dL (2.5-4.5) H 01/01/25 15:47 Phosphorus Cancelled 01/01/25 15:47 Magnesium 1.9 mg/dL (1.6-2.3) 01/01/25 15:47 Magnesium Cancelled 01/01/25 15:47
[2025-01-01 20:11] LABS: Add Urine Microscopic? YES; Appearance Urine Cloudy (Clear); Glucose Urine UA 3+ mg/dL (Negative); Leukocyte Esterase Ur Negative LEU/UL (Negative); Need Manual Microscopic Reviewed; Nitrate Urine Negative (Negative); Specific Grav Ur 1.019 (1.001-1.035)
[2025-01-01 20:13] LABS: Pregnancy On Board Control Positive
[2025-01-01 20:23] LABS: Anion Gap 16 mmol/L (4-12); Blood Urea Nitrogen 27 mg/dL (7-17); Calcium 7.1 mg/dL (8.4-10.2); Carbon Dioxide 17 mmol/L (22-30); Chloride 103 mmol/L (98-107); Estimated CRCL calculation 9 ml/min; Estimated Glomerular Filt Rate 7; Glucose 320 mg/dL (65-110); Potassium 3.3 mmol/L (3.4-5.0); Sodium 136 mmol/L (137-145)
[2025-01-01 20:36] LABS: Troponin I < 0.012 ng/mL (0.000-0.034)
[2025-01-01] MEDS: GABAPENTIN 100 MG CAPSULE PO (21:04)
[2025-01-01] MEDS: KCL 20 MEQ/D5/0.45% SOD CHL 1,000 ML 75 ML IV CONT (21:12)
[2025-01-01] MEDS: DEXTROSE 50% 25 GM/50 ML SYRINGE IV PUSH (23:33)
[2025-01-02] VITALS (26 sets, daily range): BP systolic 116–194; BP diastolic 72–107; PULSE 82–103; RESP 11–25; TEMP 36.4–37.1; O2SAT 93–100; BMI 24.3
[2025-01-02 00:12] LABS: Anion Gap 11 mmol/L (4-12); Blood Urea Nitrogen 30 mg/dL (7-17); Calcium 7.4 mg/dL (8.4-10.2); Carbon Dioxide 22 mmol/L (22-30); Chloride 102 mmol/L (98-107); Estimated CRCL calculation 9 ml/min; Estimated Glomerular Filt Rate 6; Glucose 89 mg/dL (65-110); Potassium 3.9 mmol/L (3.4-5.0); Sodium 135 mmol/L (137-145)
[2025-01-02] MEDS: DEXTROSE 50% 25 GM/50 ML SYRINGE IV PUSH (00:30)
[2025-01-02] MEDS: CALCIUM GLUC 2,000 MG/NS 100ML 2,000 MG/100 ML BAG 100 MG IVPB (01:03)
[2025-01-02] MEDS: INSULIN GLARGINE (*BKC) 100 UNITS/ML 15 UNITS SUB-Q ×2 (01:14→20:12)
[2025-01-02] MEDS: HYDROmorphone HCL INJ (*CRX) 1 MG/ML SYR IV PUSH ×5 (01:17→21:56)
[2025-01-02] MEDS: PROCHLORPERAZINE EDISYLATE 10 MG/2 ML VIAL IV PUSH (04:14)
[2025-01-02 06:07] LABS: Hematocrit 29.4 % (37.0-47.0); Hemoglobin 9.1 g/dL (12.0-15.0); Immature Granulocyte Percent A 0.4 % (0-0.5); Lymphocytes Absolute Auto 1.43 K/mm3 (0.9-3.2); Mean Corpuscular HGB Conc 31.0 g/dl (32-36); Mean Corpuscular Hemoglobin 27.7 pg (26-34); Mean Corpuscular Volume 89.4 fl (80-100); Nucleated Red Blood Cells Absolute Auto 0.000 K/mm3 (0.0-0.012); Nucleated Red Blood Cells Perc 0.0 % (0.0-0.2); Platelet Count Result 178 k/mm3 (150-375); Red Blood Count 3.29 M/mm3 (4.2-5.4); White Blood Count 5.5 K/mm3 (4.5-10.0)
[2025-01-02] MEDS: CENTRAL LINE FLUSH 10 ML IV PUSH ×3 (06:22→20:22)
[2025-01-02 06:29] LABS: Alanine Aminotransferase 21 U/L (6-35); Albumin Level 3.4 g/dL (3.5-5.1); Alkaline Phosphatase 127 U/L (38-126); Anion Gap 12 mmol/L (4-12); Aspartate Amino Transferase 18 U/L (14-36); Bilirubin,Total 0.4 mg/dL (0.2-1.3); Blood Urea Nitrogen 30 mg/dL (7-17); Calcium 7.7 mg/dL (8.4-10.2); Carbon Dioxide 22 mmol/L (22-30); Chloride 101 mmol/L (98-107); Estimated CRCL calculation 8 ml/min; Estimated Glomerular Filt Rate 6; Glucose 109 mg/dL (65-110); Magnesium 1.9 mg/dL (1.6-2.3); Potassium 4.4 mmol/L (3.4-5.0); Sodium 135 mmol/L (137-145); Total Protein 6.5 g/dL (6.3-8.2)
[2025-01-02 06:59] LABS: Hepatitis B Surface Antigen Negative (Negative)
[2025-01-02 07:18] LABS: Hepatitis B Surface Anti Res Positive
[2025-01-02] MEDS: GABAPENTIN 100 MG CAPSULE PO ×2 (08:09→20:17)
[2025-01-02] MEDS: cefTRIAXone 1 GM in SODIUM CHLORIDE 0.9% IV 50 ML 100 ML IVPB (08:10)
--- NOTE | 2025-01-02 09:00 | P.CONIN_ITS ---
Assessment and Plan Assessment and plan (1) DKA (diabetic ketoacidosis): Qualifiers: Diabetes mellitus complication detail: without coma Diabetes mellitus type: type 1 Qualified Code(s): E10.10 - Type 1 diabetes mellitus with ketoacidosis without coma Code(s): E11.10 - Type 2 diabetes mellitus with ketoacidosis without coma Status: Acute Assessment and Plan: Pt was given cautious IVF bolus and started on infusion due to her history of end-stage renal disease Insulin infusion started and Q1H glucose monitoring was done Serial labs were ordered Patient's anion gap has closed and symptoms have improved. Patient has been transition to subcutaneous insulin. Diet has been ordered and patient is tolerating p.o. diet I will continue subcutaneous Lantus along with sliding scale. Patient does have a Dexcom on for continuous glucose monitoring (2) Hypertension: Code(s): I10 - Essential (primary) hypertension Status: Chronic Assessment and Plan: Continue amlodipine Coreg and losartan (3) Abdominal pain: Code(s): R10.9 - Unspecified abdominal pain Status: Acute Assessment and Plan: Patient presented with abdominal pain which is likely secondary to combination of gastroparesis and DKA Her lipase was normal CT scan was negative except suggestion of esophagitis. I will start her on Protonix She had a recent EGD and colonoscopy at [facility]. I will request records from [facility] Pain control (4) Nausea & vomiting: Qualifiers: Vomiting type: unspecified Qualified Code(s): R11.2 - Nausea with vomiting, unspecified Code(s): R11.2 - Nausea with vomiting, unspecified Status: Acute Assessment and Plan: Appears to have resolved as patient is now eating breakfast (5) End stage renal disease on dialysis: Code(s): N18.6 - End stage renal disease; Z99.2 - Dependence on renal dialysis Status: Acute Assessment and Plan: Nephrology consulted for initiation of dialysis (6) Diabetic gastroparesis: Code(s): E11.43 - Type 2 diabetes mellitus with diabetic autonomic (poly)neuropathy; K31.84 - Gastroparesis Status: Acute Plan DVT prophylaxis -anticipate patient will ambulate today. Stress ulcer prophylaxis -Protonix Nutrition -diabetic diet Code Status - Full Code Transfer out of ICU today [employer] Consult Note Consult date: 01/02/25 Reason for consult: DKA HPI: Lynette Bellamy is a 29 year old female with past medical history of end-stage renal disease on dialysis Wednesday and type 1 diabetes presented with abdominal pain nausea and vomiting that started 2 days ago. Patient had EGD and colonoscopy a week ago but 2 days ago she started having nausea vomiting abdominal pain and chest pain. Abdominal pain was epigastric in location and chest pain was on the left side of chest and worse with deep breathing and coughing. She denies any fever hematochezia melena dysuria hematuria. She does have history of UTIs in the past but has not had UTI recently. She denies eating anything out of ordinary. All other systems were reviewed and were negative Workup in the ER showed shows hemoglobin 11.1 which is baseline, VBG 7.27, pCO2 35, PO2 46, bicarb 16, on room air sodium 132, chloride 97, carbon dioxide 17, anion gap 18, BUN 24, creatinine 7.72 glucose 433, calcium 7.2, beta hydroxybutyrate 5.6, chest x-ray with no acute findings. UA was pending but later was showed evidence of UTI EKG shows sinus rhythm with prolonged QT interval. Patient was started insulin drip IV fluids and admitted to ICU Overnight anion gap was closed and she was transition to subcutaneous insulin. This morning she states she feels better. Abdominal pain is better along with the chest pain. Her nausea vomiting has resolved. She is eating breakfast this morning. All other systems were reviewed and were negative. Review of Systems 2 Review of Systems: All systems reviewed & are unremarkable except as noted in HPI and below (HPI) [facility] Past Medical History Medical History Diabetic gastroparesis Port-A-Cath in place Type 1 diabetes Depression Surgical History Surgical History History of cholecystectomy Family History Family History Other Family history of cardiovascular disease Social History Social History Smoking status: Never smoker Alcohol intake: never Substance use: never Lack of Transportation: No Lack of Food: Never True Current Housing: I Have Housing Concerned About Future Housing: No Difficulty Paying Gas/Electric Bills: No Difficulty Paying for Meds: No Currently Unemployed: YES Education: High School Diploma/GED Difficulty w/ Childcare or Family Care: No Gender identity (if verbalized by the patient): Female Spiritual care concerns: No Meds Home Medications and Allergies Home Medications ?Medication ?Instructions ?Recorded ?Confirmed ?Type insulin glargine 100 unit/mL (3 15 unit subcut HS 05/2001/01/25 History mL) subcutaneous pen (Lantus Solostar U-100 Insulin) insulin lispro 100 unit/mL 1 sliding scale dose subcut PRN 06/02/22 01/01/25 History subcutaneous pen losartan 25 mg tablet 25 mg PO DAILY 06/02/2212/18 History ondansetron 4 mg disintegrating 4 mg PO Q4H PRN Nausea And Vomiting 06/02/22 01/01/25 History tablet amlodipine 10 mg tablet 10 mg PO DAILY 01/01/2512/18 History carvedilol 12.5 mg tablet 12.5 mg PO Q12H 01/01/25 History diphenhydramine HCl 25 mg capsule 25 mg PO Q8H PRN [place] and 01/01/25 01/01/25 History (Banophen) vomiting escitalopram oxalate 10 mg tablet 10 mg PO DAILY 01/0101/01/25 History gabapentin 100 mg capsule 100 mg PO TID 01/01/2501/01 History glucagon 0.5 mg/0.1 mL 0.5 mg subcut PRN PRN hypogl ycemia 01/01/25 01/01/25 History subcutaneous auto-injector (Gvoke HypoPen 2-Pack) metoprolol succinate 200 mg 200 mg PO DAILY 01/01/25 0 01/01/25 History tablet,extended release 24 hr Allergies Allergy/AdvReac Type Severity Reaction Status Date / Time metoclopramide (From Reglan) Allergy Intermediate Muscle Verified 01/01/25 16:47 Spasms hydralazine Allergy Hives Verified 01/01/25 16:47 Vital Signs Vital Signs - 24 hr 01/01/25 11:47 01/01/25 11:55 01/01/25 13:31 Temperature 36.8 C Pulse Rate 101 H 109 H Respiratory Rate 16 16 Blood Pressure 197/112 H 195/115 H Pulse Oximetry 100 100 Oxygen Delivery Room Air Room Air 01/01/25 13:59 01/01/25 14:40 01/01/25 16:05 Temperature Pulse Rate 97 96 99 Respiratory Rate 14 16 24 H Blood Pressure 176/98 H 164/101 H 197/107 H Pulse Oximetry 100 98 97 Oxygen Delivery 01/01/25 18:00 01/01/25 18:00 01/01/25 20:00 Temperature Pulse Rate 100 98 Respiratory Rate 18 Blood Pressure 165/97 H Pulse Oximetry 96 Oxygen Delivery Room Air 01/01/25 20:00 01/01/25 20:00 01/01/25 21:04 Temperature 37.1 C Pulse Rate 100 100 98 Respiratory Rate 18 Blood Pressure 176/97 H Pulse Oximetry 98 Oxygen Delivery 01/01/25 22:00 01/01/25 22:00 01/02/25 00:00 Temperature Pulse Rate 97 97 Respiratory Rate 20 Blood Pressure 175/95 H Pulse Oximetry 97 Oxygen Delivery Room Air 01/02/25 00:00 01/02/25 00:00 01/02/25 01:48 Temperature 36.9 C Pulse Rate 87 87 82 Respiratory Rate 20 18 Blood Pressure 138/94 H 138/94 H Pulse Oximetry 93 97 Oxygen Delivery 01/02/25 03:54 01/02/25 04:00 01/02/25 04:00 Temperature 37.1 C Pulse Rate 83 86 Respiratory Rate 25 H Blood Pressure 117/77 Pulse Oximetry 97 Oxygen Delivery Room Air 01/02/25 06:00 01/02/25 08:00 01/02/25 08:00 Temperature 36.4 C Pulse Rate 87 92 92 Respiratory Rate 25 H 12 Blood Pressure 116/79 Pulse Oximetry 95 100 Oxygen Delivery Room Air 01/02/25 08:00 Temperature 36.7 C Pulse Rate 92 Respiratory Rate 12 Blood Pressure 147/93 H Pulse Oximetry 100 Oxygen Delivery Exam 2 Narrative: General: Pt is alert awake and in NAD Lungs/Chest: Trachea central Clear BS B/L, No crackles or wheezing. Right Chest Tunnelled Cath Cardiac: RRR. Normal S1 S2. No murmurs, Left Anterior Chest Tender on Ribs Circulation: Pedal pulses are intact and symmetrical. Abdomen: Normal bowel sounds.. Soft.Mild TTP Epigastric, Non distended Extremities: No clubbing, cyanosis or edema. Warm : [place] in place Neurologic: Follows commands. Moves all 4 extremities PERRL AO x 3 Skin: No Rash Results Labs 01/02/25 05:50 01/02/25 05:50 Labs: Short CBC 01/01/25 01/02/25 Range/Units 13:06 05:50 WBC 5.6 5.5 (4.5-10.0) K/mm3 Hgb 11.1 L 9.1 L (12.0-15.0) g/dL Hct 35.4 L 29.4 L (37.0-47.0) % Plt Count 195 178 (150-375) k/mm3 BMP 01/01/25 01/01/25 01/01/25 13:06 15:47 20:01 Sodium 132 L 132 L 136 L Potassium 4.5 4.5 3.3 L Chloride 97 L 97 L 103 Carbon Dioxide 17 L 15 L 17 L BUN 24 H D 26 H 27 H Creatinine 7.71 H 7.81 H 7.33 H Glucose 433 H 512 H* 320 H Calcium 7.2 L 7.0 L 7.1 L 01/01/25 01/02/25 23:50 05:50 Sodium 135 L 135 L Potassium 3.9 4.4 Chloride 102 101 Carbon Dioxide 22 22 BUN 30 H 30 H Creatinine 7.51 H 7.96 H Glucose 89 109 Calcium 7.4 L 7.7 L Cardiac Enzymes 01/01/25 01/01/25 01/01/25 Range/Units 13:06 15:47 20:01 Troponin I < 0.012 < 0.012 < 0.012 (0.000-0.034) ng/mL Liver Function 01/01/25 01/02/25 Range/Units 13:06 05:50 Total Bilirubin 0.5 0.4 (0.2-1.3) mg/dL AST 22 18 (14-36) U/L ALT 22 21 (6-35) U/L Alkaline Phosphatase 179 H 127 H (38-126) U/L Albumin 4.0 3.4 L (3.5-5.1) g/dL Urine 01/01/25 Range/Units 19:33 Urine Color Yellow (Yellow) Urine Appearance Cloudy H (Clear) Urine pH 7.0 (5.0-9.0) Ur Specific [place] 1.019 (1.001-1.035) Urine Protein 4+ H (Negative) mg/dL Urine Glucose (UA) 3+ H (Negative) mg/dL
--- NOTE | 2025-01-02 10:30 | P.PNNP_ITS ---
Progress Note: A&P Assessment and Plan (1) End stage renal disease: Code(s): N18.6 - End stage renal disease Status: Chronic Assessment and Plan: * HD today * continue //Wednesday dialyis schedule while hospitalized * follow electrolytes, volume status, and clearance * outpatient dialysis clinic = [facility] in [place] * primary account strategist = Dr. Odilon Tellez (2) DKA (diabetic ketoacidosis): Qualifiers: Diabetes mellitus complication detail: without coma Diabetes mellitus type: type 1 Qualified Code(s): E10.10 - Type 1 diabetes mellitus with ketoacidosis without coma Code(s): E11.10 - Type 2 diabetes mellitus with ketoacidosis without coma Status: Acute Assessment and Plan: * resolved * as noted by evaluation in ER * recurrent and multiple ER visits/hospitalizations for this use (usually gets most of her care at [facility]) * s/p 1L IVFs in ER and insulin gtt * transitioned to Lantus and SSI (3) Hypertension: Code(s): I10 - Essential (primary) hypertension Status: Chronic Assessment and Plan: * better control at this time * resumed on home medications * follow trend of hemodynamics (4) Anemia: Code(s): D64.9 - Anemia, unspecified Status: Chronic Assessment and Plan: * due to ESRD * Epogen with HD * follow trend of H/H (5) Abdominal pain: Code(s): R10.9 - Unspecified abdominal pain Status: Acute Assessment and Plan: * clinically better * presumably related to nausea/vomiting and gastroparesis * CT of C/A/P results noted (6) Nausea & vomiting: Qualifiers: Vomiting type: unspecified Qualified Code(s): R11.2 - Nausea with vomiting, unspecified Code(s): R11.2 - Nausea with vomiting, unspecified Status: Acute Assessment and Plan: * improvement noted * chronic and long standing issue (per patient and review of records) * cyclic in nature * thought to be secondary to diabetic gastroparesis * apparently, there was some discussion about placing J-tube to ensure adequate nutrition given this issue (7) Diabetic gastroparesis: Code(s): E11.43 - Type 2 diabetes mellitus with diabetic autonomic (poly)neuropathy; K31.84 - Gastroparesis Status: Acute Assessment and Plan: * known and long standing issue * likely precipiting factor for admission symptoms (8) Type 1 diabetes: Qualifiers: Diabetes mellitus complication status: with hyperglycemia Qualified Code(s): E10.65 - Type 1 diabetes mellitus with hyperglycemia Code(s): E10.9 - Type 1 diabetes mellitus without complications Status: Chronic Assessment and Plan: * follow accu-cheks * transitioned to SSI and Lantus * glycemic control per health insurance assessor/hospitalist Will continue to follow. L Subjective Date/time seen: 01/02/25 10:30 Interval history: Follow-up for end stage renal disease on hemodialysis. Tolerating dialysis treatment at the time of my visit (seen on HD at 10:20AM); no apparent distress noted when seen; off insulin gtt at this time and transitioned to Lantus and SSI; chest and abdominal pain doing better; no other issues/events overnight or earlier this morning. Exam 2 Narrative: General: WD/WN female in NAD Heart: normal S1 and S2; no rub Lungs: clear to auscultation Abdomen: soft, nontender, nondistended, positive bowel sounds Extremities: no cyanosis or clubbing; no edema Skin: warm and dry Objective Data Vital Signs Vital Signs: Vital Signs Temp Pulse Resp BP Pulse Ox O2 Del Method 01/02/25 10:30 93 151/87 H 01/02/25 10:15 91 153/90 H 01/02/25 10:00 91 15 151/87 H 01/02/25 10:00 91 01/02/25 10:00 90 153/90 H 01/02/25 09:50 89 148/93 H 01/02/25 09:30 98.1 F 90 19 145/93 H 95 01/02/25 08:00 98.1 F 92 12 147/93 H 100 01/02/25 08:00 92 01/02/25 08:00 92 12 100 Room Air 01/02/25 06:00 97.6 F 87 25 H 116/79 95 01/02/25 04:00 86 01/02/25 04:00 98.7 F 83 25 H 117/77 97 01/02/25 03:54 Room Air 01/02/25 01:48 82 18 138/94 H 97 01/02/25 00:00 98.5 F 87 20 138/94 H 93 01/02/25 00:00 87 01/02/25 00:00 Room Air 01/01/25 22:00 97 20 175/95 H 97 01/01/25 22:00 97 01/01/25 21:04 98 01/01/25 20:00 98.8 F 100 18 176/97 H 98 01/01/25 20:00 100 01/01/25 20:00 Room Air 01/01/25 18:00 98 18 165/97 H 96 01/01/25 18:00 100 01/01/25 16:05 99 24 H 197/107 H 97 01/01/25 14:40 96 16 164/101 H 98 Intake/Output Intake/Output: Intake & Output 12/30/24 12/31/24 01/01/25 01/02/25 23:59 23:59 23:59 23:59 Intake Total 442.4 390.5 Output Total 150 1900 Balance 292.4 -1509.5 Meds/Results Medications: Active Medications Generic Name Dose Route Start Last Admin Trade Name Freq PRN Reason Stop Dose Admin Amlodipine Besylate 10 mg 01/01/25 17:40 01/02/25 13:21 Amlodipine Besylate 10 Mg Tablet PO 10 mg DAILY JAYME Administration Carvedilol 12.5 mg 01/01/25 21:00 01/02/25 13:20 Carvedilol 12.5 Mg Tablet PO 12.5 mg Q12H JAYME Administration Dextrose 12.5 gm 01/01/25 15:42 01/02/25 00:30 Dextrose 50% 25 Gm/50 Ml Syringe IV PUSH 12.5 gm PRN PRN Administration Hypoglycemia Protocol Diphenhydramine HCl 25 mg 01/01/25 15:46 01/02/25 11:53 Diphenhydramine Hcl Inj 50 Mg/Ml Vial IV PUSH 25 mg Q6HR PRN Administration Vomiting Epoetin Live-epbx 10,000 units 01/02/25 18:00 01/02/25 11:27 Epoetin Live-Epbx 10,000 Units/Ml Vial IV PUSH 01/02/25 18:01 10,000 units ONCE ONE Administration Gabapentin 100 mg 01/01/25 22:00 01/02/25 08:09 Gabapentin 100 Mg Capsule PO 100 mg Q8HR JAYME Administration Glucagon 1 mg 01/01/25 15:42 Glucagon For Inj 1 Mg Vial IM PRN PRN Hypoglycemia Protocol Glucose 15 gm 01/01/25 15:42 Glucose Oral Gel 15 Gm Of Glucse In 37.5 Gm Tube PO PRN PRN Hypoglycemia Protocol Heparin Sodium (Beef Lung) 50 units 01/02/25 09:00 01/02/25 13:21 Heparin Flush 50 Units/5 Ml Syringe IV PUSH 50 units QAM JAYME Administration Heparin Sodium (Beef Lung) 50 units 01/01/25 13:14 Heparin Flush 50 Units/5 Ml Syringe IV PUSH PRN PRN after intermittent infusion Heparin Sodium (Beef Lung) 50 units 01/01/25 13:14 Heparin Flush 50 Units/5 Ml Syringe IV PUSH PRN PRN after blood draws Heparin Sodium (Porcine) 500 units 01/01/25 13:14 Heparin Sodium Lock Flush 500 Units/5 Ml Syringe IV PUSH PRN PRN see comments below Hydromorphone HCl 1 mg 01/01/25 18:02 01/02/25 13:35 Hydromorphone Hcl Inj (*Crx) 1 Mg/Ml Syr IV PUSH 1 mg Q3H PRN Administration Pain Rated 7-10 Dextrose 1,000 mls @ 100 mls/hr 01/01/25 15:42 Dextrose 5% 1,000 Ml IVPB PRN PRN Hypoglycemia Protocol Albumin Human 50 mls @ 999 mls/hr 01/02/25 05:35 Albutein IVPB 01/03/25 05:34 Q10M PRN HYPOTENSION Ceftriaxone Sodium 1 gm/ 50 mls @ 100 mls/hr 01/02/25 08:00 01/02/25 08:40 Sodium Chloride IVPB Infused Q24H JAMYE Infusion Insulin Aspart 3 - 6 units 01/02/25 08:00 01/02/25 13:31 Insulin Aspart (*Bkc) 100 Units/Ml SUB-Q Not Given TIDWM [facility] Protocol Insulin Aspart 1 - 3 units 01/02/25 21:00 Insulin Aspart (*Bkc) 100 Units/Ml SUB-Q HS [facility] Protocol Insulin Glargine 15 units 01/02/25 21:00 Insulin Glargine (*Bkc) 100 Units/Ml SUB-Q HS [facility] Labetalol HCl 20 mg 01/01/25 17:40 Labetalol Hcl Inj 100 Mg/20 Ml Vial IV PUSH Q6HR PRN Blood Pressure - High Losartan Potassium 25 mg 01/02/25 09:00 01/02/25 13:21 Losartan Potassium 25 Mg Tablet PO 25 mg DAILY JAYME Administration Metoprolol Succinate 200 mg 01/02/25 09:00 01/02/25 13:20 Metoprolol Succinate Ext Rel 100 Mg Tabcr PO 200 mg DAILY JAYME Administration Pantoprazole Sodium 40 mg 01/02/25 09:00 01/02/25 13:21 Pantoprazole 40 Mg Tablet PO 40 mg QAM JAYME Administration Prochlorperazine Edisylate 10 mg 01/01/25 15:46 01/02/25 04:14 Prochlorperazine Edisylate 10 Mg/2 Ml Vial IV PUSH 10 mg Q6H PRN Administration Nausea And Vomiting Sodium Chloride 10 ml 01/01/25 14:00 01/02/25 06:22 Central Line Flush IV PUSH 10 ml Q8HR JAYME Administration Radiology Results: ITS Impressions Chest X-Ray 01/01/25 12:30 Impression: No acute cardiopulmonary abnormality. Chest/Abdomen/Pelvis CTA 01/02/25 08:21 IMPRESSION: CHEST- 1. Left lower lobe atelectasis, aspiration, and/or airspace disease. Improving but persists. 2. Patulous esophagus with wall thickening. Consider endoscopy. 3. Small mediastinal nodes persist. 4. No other acute abnormality. ABDOMEN/PELVIS- 1. Right kidney mass not excluded. Recommend ultrasound and/or MRI. 2. Small scattered nonspecific lymph nodes. Recommend surveillance. 3. No other acute abnormality. Labs Labs: Laboratory Tests 01/02/25 05:50 01/02/25 05:50 Calcium 7.7 L Phosphorus 7.0 H Magnesium 1.9 Total Bilirubin 0.4 AST 18 ALT 21 Alkaline Phosphatase 127 H Total Protein 6.5 Albumin 3.4 L Hep Bs Antigen Negative Hep Bs Antibody Positive
[2025-01-02] MEDS: EPOETIN ALFA-EPBX 10,000 UNITS/ML VIAL 10000 UNITS IV PUSH (11:27)
[2025-01-02] MEDS: METOPROLOL SUCCINATE EXT REL 100 MG TABCR 200 MG PO (13:20)
[2025-01-02] MEDS: LOSARTAN POTASSIUM 25 MG TABLET PO (13:21)
[2025-01-02] MEDS: PANTOPRAZOLE 40 MG TABLET PO (13:21)
--- NOTE | 2025-01-02 15:14 | P.PNIM_ITS ---
Progress Note: A&P Assessment and Plan (1) DKA (diabetic ketoacidosis): Qualifiers: Diabetes mellitus complication detail: without coma Diabetes mellitus type: type 1 Qualified Code(s): E10.10 - Type 1 diabetes mellitus with ketoacidosis without coma Code(s): E11.10 - Type 2 diabetes mellitus with ketoacidosis without coma Status: Acute Assessment and Plan: S/p IVF and insulin infusion Now on lantus 15 units, continue SSI with accucheks (2) Hypertension: Code(s): I10 - Essential (primary) hypertension Status: Chronic Assessment and Plan: Continue amlodipine Coreg and losartan (3) Abdominal pain: Code(s): R10.9 - Unspecified abdominal pain Status: Acute Assessment and Plan: Patient presented with abdominal pain which is likely secondary to combination of gastroparesis and DKA Her lipase was normal CT scan was negative except suggestion of esophagitis. I will start her on Protonix She had a recent EGD and colonoscopy at [facility]. I will request records from [facility] Pain control (4) Nausea & vomiting: Qualifiers: Vomiting type: unspecified Qualified Code(s): R11.2 - Nausea with vomiting, unspecified Code(s): R11.2 - Nausea with vomiting, unspecified Status: Acute Assessment and Plan: Appears to have resolved as patient is now eating breakfast (5) End stage renal disease on dialysis: Code(s): N18.6 - End stage renal disease; Z99.2 - Dependence on renal dialysis Status: Acute Assessment and Plan: Nephrology consulted for initiation of dialysis (6) Diabetic gastroparesis: Code(s): E11.43 - Type 2 diabetes mellitus with diabetic autonomic (poly)neuropathy; K31.84 - Gastroparesis Status: Acute Plan DVT prophylaxis - Sq Heparin Stress ulcer prophylaxis -Protonix Nutrition -diabetic diet Code Status - Full Code Subjective Date/time seen: 01/02/25 15:14 Interval history: Follow-up for end stage renal disease on hemodialysis. Tolerating dialysis treatment at the time of my visit Review of Systems Review of Systems: 12 systems were reviewed and are negativ e except for as per HPI. All systems reviewed & are unremarkable except as noted in HPI and below (HPI) Exam Narrative: General: Pt is alert awake and in NAD Lungs/Chest: Trachea central Clear BS B/L, No crackles or wheezing. Right Chest Tunnelled Cath Cardiac: RRR. Normal S1 S2. No murmurs, Left Anterior Chest Tender on Ribs Circulation: Pedal pulses are intact and symmetrical. Abdomen: Normal bowel sounds.. Soft.Mild TTP Epigastric, Non distended Extremities: No clubbing, cyanosis or edema. Warm : [place] in place Neurologic: Follows commands. Moves all 4 extremities PERRL AO x 3 Skin: No Rash Objective Data Vital Signs Vital Signs: Vital Signs - 24 hr 01/01/25 16:05 01/01/25 18:00 01/01/25 18:00 Temperature Pulse Rate 99 100 98 Respiratory Rate 24 H 18 Blood Pressure 197/107 H 165/97 H Pulse Oximetry 97 96 Oxygen Delivery 01/01/25 20:00 01/01/25 20:00 01/01/25 20:00 Temperature 98.8 F Pulse Rate 100 100 Respiratory Rate 18 Blood Pressure 176/97 H Pulse Oximetry 98 Oxygen Delivery Room Air 01/01/25 21:04 01/01/25 22:00 01/01/25 22:00 Temperature Pulse Rate 98 97 97 Respiratory Rate 20 Blood Pressure 175/95 H Pulse Oximetry 97 Oxygen Delivery 01/02/25 00:00 01/02/25 00:00 01/02/25 00:00 Temperature 98.5 F Pulse Rate 87 87 Respiratory Rate 20 Blood Pressure 138/94 H Pulse Oximetry 93 Oxygen Delivery Room Air 01/02/25 01:48 01/02/25 03:54 01/02/25 04:00 Temperature 98.7 F Pulse Rate 82 83 Respiratory Rate 18 25 H Blood Pressure 138/94 H 117/77 Pulse Oximetry 97 97 Oxygen Delivery Room Air 01/02/25 04:00 01/02/25 06:00 01/02/25 08:00 Temperature 97.6 F Pulse Rate 86 87 92 Respiratory Rate 25 H 12 Blood Pressure 116/79 Pulse Oximetry 95 100 Oxygen Delivery Room Air 01/02/25 08:00 01/02/25 08:00 01/02/25 09:30 Temperature 98.1 F 98.1 F Pulse Rate 92 92 90 Respiratory Rate 12 19 Blood Pressure 147/93 H 145/93 H Pulse Oximetry 100 95 Oxygen Delivery 01/02/25 09:50 01/02/25 10:00 01/02/25 10:00 Temperature Pulse Rate 89 90 91 Respiratory Rate Blood Pressure 148/93 H 153/90 H Pulse Oximetry Oxygen Delivery 01/02/25 10:00 01/02/25 10:15 01/02/25 10:30 Temperature Pulse Rate 91 91 93 Respiratory Rate 15 Blood Pressure 151/87 H 153/90 H 151/87 H Pulse Oximetry Oxygen Delivery 01/02/25 10:46 01/02/25 11:00 01/02/25 11:17 Temperature Pulse Rate 92 94 94 Respiratory Rate Blood Pressure 157/92 H 151/87 H 155/96 H Pulse Oximetry Oxygen Delivery 01/02/25 11:29 01/02/25 11:44 01/02/25 12:00 Temperature Pulse Rate 94 94 92 Respiratory Rate Blood Pressure 151/94 H 154/89 H 162/99 H Pulse Oximetry Oxygen Delivery 01/02/25 12:00 01/02/25 12:00 01/02/25 12:00 Temperature Pulse Rate 94 93 93 Respiratory Rate 16 Blood Pressure 178/101 H Pulse Oximetry Oxygen Delivery Room Air 01/02/25 12:00 01/02/25 12:16 01/02/25 12:31 Temperature Pulse Rate 93 92 93 Respiratory Rate 16 Blood Pressure 162/99 H 160/101 H 167/104 H Pulse Oximetry Oxygen Delivery 01/02/25 12:55 01/02/25 13:01 01/02/25 13:20 Temperature 98.1 F Pulse Rate 94 98 103 H Respiratory Rate 11 L Blood Pressure 181/101 H 194/107 H Pulse Oximetry Oxygen Delivery 01/02/25 13:20 01/02/25 14:00 01/02/25 14:00 Temperature Pulse Rate 103 H 100 100 Respiratory Rate 13 Blood Pressure 184/101 H Pulse Oximetry Oxygen Delivery Intake/Output Intake/Output: Intake & Output 12/30/24 12/31/24 01/01/25 01/02/25 23:59 23:59 23:59 23:59 Intake Total 442.4 490.5 Output Total 150 1900 Balance 292.4 -1409.5 Meds/Results Medications: Active Medications Generic Name Dose Route Start Last Admin Trade Name Freq PRN Reason Stop Dose Admin Amlodipine Besylate 10 mg 01/01/25 17:40 01/02/25 13:21 Amlodipine Besylate 10 Mg Tablet PO 10 mg DAILY JAYME Administration Carvedilol 12.5 mg 01/01/25 21:00 01/02/25 13:20 Carvedilol 12.5 Mg Tablet PO 12.5 mg Q12H JAYME Administration Dextrose 12.5 gm 01/01/25 15:42 01/02/25 00:30 Dextrose 50% 25 Gm/50 Ml Syringe IV PUSH 12.5 gm PRN PRN Administration Hypoglycemia Protocol Diphenhydramine HCl 25 mg 01/01/25 15:46 01/02/25 11:53 Diphenhydramine Hcl Inj 50 Mg/Ml Vial IV PUSH 25 mg Q6HR PRN Administration Vomiting Epoetin Live-epbx 10,000 units 01/02/25 18:00 01/02/25 11:27 Epoetin Live-Epbx 10,000 Units/Ml Vial IV PUSH 01/02/25 18:01 10,000 units ONCE ONE Administration Gabapentin 100 mg 01/01/25 22:00 01/02/25 08:09 Gabapentin 100 Mg Capsule PO 100 mg Q8HR JAYME Administration Glucagon 1 mg 01/01/25 15:42 Glucagon For Inj 1 Mg Vial IM PRN PRN Hypoglycemia Protocol Glucose 15 gm 01/01/25 15:42 Glucose Oral Gel 15 Gm Of Glucse In 37.5 Gm Tube PO PRN PRN Hypoglycemia Protocol Heparin Sodium (Beef Lung) 50 units 01/02/25 09:00 01/02/25 13:21 Heparin Flush 50 Units/5 Ml Syringe IV PUSH 50 units QAM JAYME Administration Heparin Sodium (Beef Lung) 50 units 01/01/25 13:14 Heparin Flush 50 Units/5 Ml Syringe IV PUSH PRN PRN after intermittent infusion Heparin Sodium (Beef Lung) 50 units 01/01/25 13:14 Heparin Flush 50 Units/5 Ml Syringe IV PUSH PRN PRN after blood draws Heparin Sodium (Porcine) 500 units 01/01/25 13:14 Heparin Sodium Lock Flush 500 Units/5 Ml Syringe IV PUSH PRN PRN see comments below Hydromorphone HCl 1 mg 01/01/25 18:02 01/02/25 13:35 Hydromorphone Hcl Inj (*Crx) 1 Mg/Ml Syr IV PUSH 1 mg Q3H PRN Administration Pain Rated 7-10 Dextrose 1,000 mls @ 100 mls/hr 01/01/25 15:42 Dextrose 5% 1,000 Ml IVPB PRN PRN Hypoglycemia Protocol Ceftriaxone Sodium 1 gm/ 50 mls @ 100 mls/hr 01/02/25 08:00 01/02/25 08:40 Sodium Chloride IVPB Infused Q24H JAYME Infusion Insulin Aspart 3 - 6 units 01/02/25 08:00 01/02/25 13:31 Insulin Aspart (*Bkc) 100 Units/Ml SUB-Q Not Given [facility] Protocol Insulin Aspart 1 - 3 units 01/02/25 21:00 Insulin Aspart (*Bkc) 100 Units/Ml SUB-Q HS [facility] Protocol Insulin Glargine 15 units 01/02/25 21:00 Insulin Glargine (*Bkc) 100 Units/Ml SUB-Q HS [facility] Labetalol HCl 20 mg 01/01/25 17:40 Labetalol Hcl Inj 100 Mg/20 Ml Vial IV PUSH Q6HR PRN Blood Pressure - High Losartan Potassium 25 mg 01/02/25 09:00 01/02/25 13:21 Losartan Potassium 25 Mg Tablet PO 25 mg DAILY JAYME Administration Metoprolol Succinate 200 mg 01/02/25 09:00 01/02/25 13:20 Metoprolol Succinate Ext Rel 100 Mg Tabcr PO 200 mg DAILY JAYME Administration Pantoprazole Sodium 40 mg 01/02/25 09:00 01/02/25 13:21 Pantoprazole 40 Mg Tablet PO 40 mg QAM JAYME Administration Prochlorperazine Edisylate 10 mg 01/01/25 15:46 01/02/25 04:14 Prochlorperazine Edisylate 10 Mg/2 Ml Vial IV PUSH 10 mg Q6H PRN Administration Nausea And Vomiting Sodium Chloride 10 ml 01/01/25 14:00 01/02/25 06:22 Central Line Flush IV PUSH 10 ml Q8HR JAYME Administration Radiology Results: ITS Impressions Chest X-Ray 01/01/25 12:30 Impression: No acute cardiopulmonary abnormality. Chest/Abdomen/Pelvis CTA 01/02/25 08:21 IMPRESSION: CHEST- 1. Left lower lobe atelectasis, aspiration, and/or airspace disease. Improving but persists. 2. Patulous esophagus with wall thickening. Consider endoscopy. 3. Small mediastinal nodes persist. 4. No other acute abnormality. ABDOMEN/PELVIS- 1. Right kidney mass not excluded. Recommend ultrasound and/or MRI. 2. Small scattered nonspecific lymph nodes. Recommend surveillance. 3. No other acute abnormality. Labs Labs: Laboratory Results - last 24 hr 01/01/25 01/01/25 01/01/25 15:36 15:47 15:47 WBC RBC Hgb Hct MCV MCH MCHC RDW Plt Count MPV Immature Gran % (Auto) Neut % (Auto) Lymph % (Auto) [place] % (Auto) Eos % (Auto) Baso % (Auto) Lymph # (Auto) [place] # (Auto) Eos # (Auto) Baso # (Auto) Abs Immat Gran (auto) Absolute Neuts (auto) Absolute Nucleated RBC Nucleated RBC % Sodium 132 L Potassium 4.5 Chloride 97 L Carbon Dioxide 15 L Anion Gap 20 H BUN 26 H Creatinine 7.81 H Estim Creat Clear Calc 9 Estimated GFR 6 L Glucose 512 H* POC Capillary Glucose 468 H Hemoglobin A1c 8.4 H Calcium 7.0 L Phosphorus Cancelled 6.3 H Magnesium Cancelled Total Bilirubin AST ALT Alkaline Phosphatase Troponin I Total Protein Albumin Urine Color Urine Appearance Urine pH Ur Specific [place] Urine Protein Urine Glucose (UA) Urine Ketones Ur Blood (Man) Urine Nitrate Urine Bilirubin Urine Urobilinogen Add Ur Microanalysis Leukocyte Esterase Rfl Urine RBC Urine WBC Ur Squamous Epith Cells Urine Bacteria Urine Casts Urine Test Nasal MRSA (PCR) Hep Bs Antigen Hep Bs Antibody 01/01/25 01/01/25 01/01/25 15:47 16:05 16:41 WBC RBC Hgb Hct MCV MCH MCHC RDW Plt Count MPV Immature Gran % (Auto) Neut % (Auto) Lymph % (Auto) [place] % (Auto) Eos % (Auto) Baso % (Auto) Lymph # (Auto) [place] # (Auto) Eos # (Auto) Baso # (Auto) Abs Immat Gran (auto) Absolute Neuts (auto) Absolute Nucleated RBC Nucleated RBC % Sodium Potassium Chloride Carbon Dioxide Anion Gap BUN Creatinine Estim Creat Clear Calc Estimated GFR Glucose POC Capillary Glucose > 500 H* Hemoglobin A1c Calcium Phosphorus Magnesium 1.9 Total Bilirubin AST ALT Alkaline Phosphatase Troponin I < 0.012 Total Protein Albumin Urine Color Urine Appearance Urine pH Ur Specific [place] Urine Protein Urine Glucose (UA) Urine Ketones Ur Blood (Man) Urine Nitrate Urine Bilirubin Urine Urobilinogen Add Ur Microanalysis Leukocyte Esterase Rfl Urine RBC Urine WBC Ur Squamous Epith Cells Urine Bacteria Urine Casts Urine Test Nasal MRSA (PCR) Not detected Hep Bs Antigen Hep Bs Antibody 01/01/25 01/01/25 01/01/25 17:07 18:03 19:12 WBC RBC Hgb Hct MCV MCH MCHC RDW Plt Count MPV Immature Gran % (Auto) Neut % (Auto) Lymph % (Auto) [place] % (Auto) Eos % (Auto) Baso % (Auto) Lymph # (Auto) [place] # (Auto) Eos # (Auto) Baso # (Auto) Abs Immat Gran (auto) Absolute Neuts (auto) Absolute Nucleated RBC Nucleated RBC % Sodium Potassium Chloride Carbon Dioxide Anion Gap BUN Creatinine Estim Creat Clear Calc Estimated GFR Glucose POC Capillary Glucose 499 H 498 H 380 H Hemoglobin A1c Calcium Phosphorus Magnesium Total Bilirubin AST ALT Alkaline Phosphatase Troponin I Total Protein Albumin Urine Color Urine Appearance Urine pH Ur Specific [place] Urine Protein Urine Glucose (UA) Urine Ketones Ur Blood (Man) Urine Nitrate Urine Bilirubin Urine Urobilinogen Add Ur Microanalysis Leukocyte Esterase Rfl Urine RBC Urine WBC Ur Squamous Epith Cells Urine Bacteria Urine Casts Urine Test Nasal MRSA (PCR) Hep Bs Antigen Hep Bs Antibody 01/01/25 01/01/25 01/01/25 19:33 20:01 21:10 WBC RBC Hgb Hct MCV MCH MCHC RDW Plt Count MPV Immature Gran % (Auto) Neut % (Auto) Lymph % (Auto) [place] % (Auto) Eos % (Auto) Baso % (Auto) Lymph # (Auto) [place] # (Auto) Eos # (Auto) Baso # (Auto) Abs Immat Gran (auto) Absolute Neuts (auto) Absolute Nucleated RBC Nucleated RBC % Sodium 136 L Potassium 3.3 L Chloride 103 Carbon Dioxide 17 L Anion Gap 16 H BUN 27 H Creatinine 7.33 H Estim Creat Clear Calc 9 Estimated GFR 7 L Glucose 320 H POC Capillary Glucose 235 H Hemoglobin A1c Calcium 7.1 L Phosphorus Magnesium Total Bilirubin AST ALT Alkaline Phosphatase Troponin I < 0.012 Total Protein Albumin Urine Color Yellow Urine Appearance Cloudy H Urine pH 7.0 Ur Specific [place] 1.019 Urine Protein 4+ H Urine Glucose (UA) 3+ H Urine Ketones 1+ H Ur Blood (Man) 1+ H Urine Nitrate Negative Urine Bilirubin Negative Urine Urobilinogen 0.2 Add Ur Microanalysis Reviewed Leukocyte Esterase Rfl Negative Urine RBC 6-10 H Urine WBC 21-50 H Ur Squamous Epith Cells Few Urine Bacteria 2+ H Urine Casts 6-10 Urine Test Negative Nasal MRSA (PCR) Hep Bs Antigen Hep Bs Antibody 01/01/25 01/01/25 01/01/25 22:27 23:25 23:48 WBC RBC Hgb Hct MCV MCH MCHC RDW Plt Count MPV Immature Gran % (Auto) Neut % (Auto) Lymph % (Auto) [place] % (Auto) Eos % (Auto) Baso % (Auto) Lymph # (Auto) [place] # (Auto) Eos # (Auto) Baso # (Auto) Abs Immat Gran (auto) Absolute Neuts (auto) Absolute Nucleated RBC Nucleated RBC % Sodium Potassium Chloride Carbon Dioxide Anion Gap BUN Creatinine Estim Creat Clear Calc Estimated GFR Glucose POC Capillary Glucose 121 H 54 L* 103 Hemoglobin A1c Calcium Phosphorus Magnesium Total Bilirubin AST ALT Alkaline Phosphatase Troponin I Total Protein Albumin Urine Color Urine Appearance Urine pH Ur Specific [place] Urine Protein Urine Glucose (UA) Urine Ketones Ur Blood (Man) Urine Nitrate Urine Bilirubin Urine Urobilinogen Add Ur Microanalysis Leukocyte Esterase Rfl Urine RBC Urine WBC Ur Squamous Epith Cells Urine Bacteria Urine Casts Urine Test Nasal MRSA (PCR) Hep Bs Antigen Hep Bs Antibody 01/01/25 01/02/25 01/02/25 23:50 00:25 00:49 WBC RBC Hgb Hct MCV MCH MCHC RDW Plt Count MPV Immature Gran % (Auto) Neut % (Auto) Lymph % (Auto) [place] % (Auto) Eos % (Auto) Baso % (Auto) Lymph # (Auto) [place] # (Auto) Eos # (Auto) Baso # (Auto) Abs Immat Gran (auto) Absolute Neuts (auto) Absolute Nucleated RBC Nucleated RBC % Sodium 135 L Potassium 3.9 Chloride 102 Carbon Dioxide 22 Anion Gap 11 BUN 30 H Creatinine 7.51 H Estim Creat Clear Calc 9 Estimated GFR 6 L Glucose 89 POC Capillary Glucose 64 L 148 H Hemoglobin A1c Calcium 7.4 L Phosphorus Magnesium Total Bilirubin AST ALT Alkaline Phosphatase Troponin I Total Protein Albumin Urine Color Urine Appearance Urine pH Ur Specific [place] Urine Protein Urine Glucose (UA) Urine Ketones Ur Blood (Man) Urine Nitrate Urine Bilirubin Urine Urobilinogen Add Ur Microanalysis Leukocyte Esterase Rfl Urine RBC Urine WBC Ur Squamous Epith Cells Urine Bacteria Urine Casts Urine Test Nasal MRSA (PCR) Hep Bs Antigen Hep Bs Antibody 01/02/25 05:50 WBC 5.5 RBC 3.29 L Hgb 9.1 L Hct 29.4 L MCV 89.4 MCH 27.7 MCHC 31.0 L RDW 14.3 Plt Count 178 MPV 11.6 H Immature Gran % (Auto) 0.4 Neut % (Auto) 60.0 Lymph % (Auto) 26.0 [place] % (Auto) 10.5 H Eos % (Auto) 2.9 Baso % (Auto) 0.2 Lymph # (Auto) 1.43 [place] # (Auto) 0.6 Eos # (Auto) 0.2 Baso # (Auto) 0.0 Abs Immat Gran (auto) 0.02 Absolute Neuts (auto) 3.3 Absolute Nucleated RBC 0.000 Nucleated RBC % 0.0 Sodium 135 L Potassium 4.4 Chloride 101 Carbon Dioxide 22 Anion Gap 12 BUN 30 H Creatinine 7.96 H Estim Creat Clear Calc 8 Estimated GFR 6 L Glucose 109 POC Capillary Glucose Hemoglobin A1c Calcium 7.7 L Phosphorus 7.0 H Magnesium 1.9 Total Bilirubin 0.4 AST 18 ALT 21 Alkaline Phosphatase 127 H Troponin I Total Protein 6.5 Albumin 3.4 L Urine Color Urine Appearance Urine pH Ur Specific [place] Urine Protein Urine Glucose (UA) Urine Ketones Ur Blood (Man) Urine Nitrate Urine Bilirubin Urine Urobilinogen Add Ur Microanalysis Leukocyte Esterase Rfl Urine RBC Urine WBC Ur Squamous Epith Cells Urine Bacteria Urine Casts Urine Test Nasal MRSA (PCR) Hep Bs Antigen Negative Hep Bs Antibody Positive Quality VTE Prophylaxis VTE prophylaxis: mechanical ordered
--- NOTE | 2025-01-02 17:16 | PC.NURSE ---
Patient transfered to room 300. Report called to KADY Feliz. All questions answered. Belongings sent with patient.
--- NOTE | 2025-01-02 17:24 | PC.NURSE ---
This patient, Lynette Bellamy, was received from ICU on 01/02/25 at 1724. Patient/family oriented to unit policies and routines
[2025-01-02] MEDS: INSULIN ASPART (*BKC) 100 UNITS/ML SUB-Q (20:16)
[2025-01-03] VITALS (12 sets, daily range): BP systolic 120–143; BP diastolic 75–89; PULSE 75–91; RESP 15–18; TEMP 35.6–35.9; O2SAT 98–100; BMI 25.1
[2025-01-03] MEDS: HYDROmorphone HCL INJ (*CRX) 1 MG/ML SYR IV PUSH ×3 (00:29→07:39)
[2025-01-03 05:37] LABS: Hematocrit 31.2 % (37.0-47.0); Hemoglobin 9.5 g/dL (12.0-15.0); Mean Corpuscular HGB Conc 30.4 g/dl (32-36); Mean Corpuscular Hemoglobin 27.9 pg (26-34); Mean Corpuscular Volume 91.5 fl (80-100); Platelet Count Result 182 k/mm3 (150-375); Red Blood Count 3.41 M/mm3 (4.2-5.4); White Blood Count 4.7 K/mm3 (4.5-10.0)
[2025-01-03] MEDS: CENTRAL LINE FLUSH 10 ML IV PUSH ×3 (05:48→20:52)
[2025-01-03] MEDS: GABAPENTIN 100 MG CAPSULE PO ×3 (05:48→20:04)
[2025-01-03 06:20] LABS: Alanine Aminotransferase 24 U/L (6-35); Albumin Level 3.5 g/dL (3.5-5.1); Alkaline Phosphatase 147 U/L (38-126); Anion Gap 10 mmol/L (4-12); Aspartate Amino Transferase 25 U/L (14-36); Bilirubin,Total 0.3 mg/dL (0.2-1.3); Blood Urea Nitrogen 13 mg/dL (7-17); Calcium 7.8 mg/dL (8.4-10.2); Carbon Dioxide 26 mmol/L (22-30); Chloride 101 mmol/L (98-107); Estimated CRCL calculation 14 ml/min; Estimated Glomerular Filt Rate 10; Glucose 294 mg/dL (65-110); Magnesium 2.1 mg/dL (1.6-2.3); Potassium 4.2 mmol/L (3.4-5.0); Sodium 137 mmol/L (137-145); Total Protein 6.8 g/dL (6.3-8.2)
[2025-01-03] MEDS: cefTRIAXone 1 GM in SODIUM CHLORIDE 0.9% IV 50 ML 100 ML IVPB (07:39)
--- NOTE | 2025-01-03 08:46 | P.PNIM_ITS ---
Progress Note: A&P Assessment and Plan (1) DKA (diabetic ketoacidosis): Qualifiers: Diabetes mellitus complication detail: without coma Diabetes mellitus type: type 1 Qualified Code(s): E10.10 - Type 1 diabetes mellitus with ketoacidosis without coma Code(s): E11.10 - Type 2 diabetes mellitus with ketoacidosis without coma Status: Acute Assessment and Plan: Glucose > 500 on admission, likely secondary to cyclical vomiting in the setting of type 1 diabetic Admitted to the ICU where she recieved cautious IVF bolus and started on infusion due to her history of end-stage renal disease Insulin infusion started and Q1H glucose monitoring was done Patient's anion gap has closed and symptoms improved before transitioning back to subcutaneous insulin. - hypoglycemia protocol - POC blood glucose ACHS - correct regimen ordered - SSI and lantus - A1C 8.4 Dicussed diabetes regimen with patient and she states that she has not been on lantus for quite some time. She then pulled up her MyChart with [facility] and showed that she is on NPH 15 units in the am and 10 units in the pm per her insulation power unit tender Dr. Saucedo She states that glucose has been well controlled on this regimen. Will transition patient to the NPH lowering the dose by 20% given hospitalizati on. NPH 12 units AM and 8 units HS Continue to closely monitor glucose levels. Patient has continuous dexcom (2) Abdominal pain: Code(s): R10.9 - Unspecified abdominal pain Status: Acute Assessment and Plan: Patient presented with abdominal pain which is likely secondary to combination of gastroparesis and DKA CT scan showed small mediastinal nodes persisting, atelectasis and possible right kidney mass otherwise unremarkable Continues to endorse epigastric pain wrapping to the back Her lipase was normal History of gastroparesis, no BM for past 2-3 days and decreased flatus KUB ordered Encouraged adequate hydration Started on Protonix She had a recent EGD and colonoscopy at [facility]. Requested records from [facility] (3) Hypertension: Code(s): I10 - Essential (primary) hypertension Status: Chronic Assessment and Plan: Chronic, continue home medications - amlodipine 10 mg daily - coreg 12.5 mg BID - losartan 25 mg daily - metoprolol 200 mg daialy - blood pressures stable, continue to monitor (4) End stage renal disease on dialysis: Code(s): N18.6 - End stage renal disease; Z99.2 - Dependence on renal dialysis Status: Acute Assessment and Plan: Nephrology consulted * continue //Wednesday dialyis schedule while hospitalized * follow electrolytes, volume status, and clearance * outpatient dialysis clinic = [facility] in [place] * primary land leveler = Dr. Odilon Tellez Time Spent With Patient Time with patient: 25 - 35 minutes Subjective Date/time seen: 01/03/25 08:46 Interval history: 29-year-old female with type 1 diabetes, end-stage renal disease on dialysis presents to the hospital with cyclical vomiting. Patient is pleasant sitting up comfortably in bed. She continues to endorse epigastric pain that wraps around his her mid back. She had associated nausea but no vomiting. She states she has not had a bowel movement in 2-3 days and does note decreased fullness. Will obtain a KUB to reassess for any fecal impaction. [facility] home patient is current diabetes regimen when she noted that she has been off Lantus for some time. She then pulled up her MyChart with [facility] and show that she has been taking NPH 15 units in the am and 10 units in the pm per her insulation power unit tender Dr. Saucedo. She states that glucose has been well controlled on this regimen. Patient has no other complaints denying chest pain, shortness a breath, palpitations. Review of Systems Review of Systems: All systems reviewed & are unremarkable except as noted in HPI and below (HPI) Exam Narrative: AF HR 91 RR 18 Spo2 98 BP 122/75 General: female in no acute respiratory distress who is nontoxic appearing, sitting up in bed HEENT: Normocephalic. Atraumatic. Extraocular movement intact. Sclera clear and anicteric. No facial asymmetry. Chest: Lungs are clear to auscultation bilaterally. No wheezes or crackles. CV: Heart was regular rate and rhythm. S1-S2. No murmurs, gallops, or rubs. Abd: Abdomen was soft. Tender to epigastric region. Nondistended. Positive bowel sounds. Ext: No clubbing, cyanosis, or edema. DP pulses bilaterally. Neuro: Patient is alert and oriented x4. Speech is clear. Objective Data Vital Signs Vital Signs: Vital Signs - 24 hr 01/02/25 09:30 01/02/25 09:50 01/02/25 10:00 Temperature 98.1 F Pulse Rate 90 89 90 Respiratory Rate 19 Blood Pressure 145/93 H 148/93 H 153/90 H Pulse Oximetry 95 Oxygen Delivery 01/02/25 10:00 01/02/25 10:00 01/02/25 10:15 Temperature Pulse Rate 91 91 91 Respiratory Rate 15 Blood Pressure 151/87 H 153/90 H Pulse Oximetry Oxygen Delivery 01/02/25 10:30 01/02/25 10:46 01/02/25 11:00 Temperature Pulse Rate 93 92 94 Respiratory Rate Blood Pressure 151/87 H 157/92 H 151/87 H Pulse Oximetry Oxygen Delivery 01/02/25 11:17 01/02/25 11:29 01/02/25 11:44 Temperature Pulse Rate 94 94 94 Respiratory Rate Blood Pressure 155/96 H 151/94 H 154/89 H Pulse Oximetry Oxygen Delivery 01/02/25 12:00 01/02/25 12:00 01/02/25 12:00 Temperature Pulse Rate 92 94 93 Respiratory Rate 16 Blood Pressure 162/99 H 178/101 H Pulse Oximetry Oxygen Delivery Room Air 01/02/25 12:00 01/02/25 12:00 01/02/25 12:16 Temperature Pulse Rate 93 93 92 Respiratory Rate 16 Blood Pressure 162/99 H 160/101 H Pulse Oximetry Oxygen Delivery 01/02/25 12:31 01/02/25 12:55 01/02/25 13:01 Temperature 98.1 F Pulse Rate 93 94 98 Respiratory Rate 11 L Blood Pressure 167/104 H 181/101 H 194/107 H Pulse Oximetry Oxygen Delivery 01/02/25 13:20 01/02/25 13:20 01/02/25 14:00 Temperature Pulse Rate 103 H 103 H 100 Respiratory Rate Blood Pressure Pulse Oximetry Oxygen Delivery 01/02/25 14:00 01/02/25 16:00 01/02/25 16:00 Temperature Pulse Rate 100 91 91 Respiratory Rate 13 15 Blood Pressure 184/101 H 172/99 H Pulse Oximetry 100 Oxygen Delivery 01/02/25 20:00 01/02/25 20:11 01/02/25 20:22 Temperature Pulse Rate 87 86 Respiratory Rate Blood Pressure Pulse Oximetry Oxygen Delivery Room Air 01/02/25 20:55 01/03/25 00:00 01/03/25 04:00 Temperature 97.6 F Pulse Rate 87 82 80 Respiratory Rate 16 Blood Pressure 119/72 Pulse Oximetry 98 Oxygen Delivery 01/03/25 05:31 01/03/25 08:00 Temperature 96.1 F L Pulse Rate 91 Respiratory Rate 18 Blood Pressure 122/75 Pulse Oximetry 98 Oxygen Delivery Room Air Intake/Output Intake/Output: Intake & Output 12/31/24 01/01/25 01/02/25 01/03/25 23:59 23:59 23:59 23:59 Intake Total 442.4 490.5 Output Total 150 1900 Balance 292.4 -1409.5 Meds/Results Medications: Active Medications Generic Name Dose Route Start Last Admin Trade Name Freq PRN Reason Stop Dose Admin Amlodipine Besylate 10 mg 01/01/25 17:40 01/02/25 13:21 Amlodipine Besylate 10 Mg Tablet PO 10 mg DAILY JAYME Administration Carvedilol 12.5 mg 01/01/25 21:00 01/02/25 20:11 Carvedilol 12.5 Mg Tablet PO 12.5 mg Q12H JAYME Administration Dextrose 12.5 gm 01/01/25 15:42 01/02/25 00:30 Dextrose 50% 25 Gm/50 Ml Syringe IV PUSH 12.5 gm PRN PRN Administration Hypoglycemia Protocol Diphenhydramine HCl 25 mg 01/01/25 15:46 01/03/25 05:51 Diphenhydramine Hcl Inj 50 Mg/Ml Vial IV PUSH 25 mg Q6HR PRN Administration Vomiting Gabapentin 100 mg 01/01/25 22:00 01/03/25 05:48 Gabapentin 100 Mg Capsule PO 100 mg Q8HR JAYME Administration Glucagon 1 mg 01/01/25 15:42 Glucagon For Inj 1 Mg Vial IM PRN PRN Hypoglycemia Protocol Glucose 15 gm 01/01/25 15:42 Glucose Oral Gel 15 Gm Of Glucse In 37.5 Gm Tube PO PRN PRN Hypoglycemia Protocol Heparin Sodium (Beef Lung) 50 units 01/02/25 09:00 01/03/25 07:40 Heparin Flush 50 Units/5 Ml Syringe IV PUSH 50 units QAM JAYME Administration Heparin Sodium (Beef Lung) 50 units 01/01/25 13:14 Heparin Flush 50 Units/5 Ml Syringe IV PUSH PRN PRN after intermittent infusion Heparin Sodium (Beef Lung) 50 units 01/01/25 13:14 Heparin Flush 50 Units/5 Ml Syringe IV PUSH PRN PRN after blood draws Heparin Sodium (Porcine) 500 units 01/01/25 13:14 Heparin Sodium Lock Flush 500 Units/5 Ml Syringe IV PUSH PRN PRN see comments below Hydromorphone HCl 1 mg 01/01/25 18:02 01/03/25 07:39 Hydromorphone Hcl Inj (*Crx) 1 Mg/Ml Syr IV PUSH 1 mg Q3H PRN Administration Pain Rated 7-10 Dextrose 1,000 mls @ 100 mls/hr 01/01/25 15:42 Dextrose 5% 1,000 Ml IVPB PRN PRN Hypoglycemia Protocol Ceftriaxone Sodium 1 gm/ 50 mls @ 100 mls/hr 01/02/25 08:00 01/03/25 07:39 Sodium Chloride IVPB 100 mls/hr Q24H JAYME Administration Insulin Aspart 3 - 6 units 01/02/25 08:00 01/02/25 17:31 Insulin Aspart (*Bkc) 100 Units/Ml SUB-Q Not Given TIDWM JAYME Protocol Insulin Aspart 1 - 3 units 01/02/25 21:00 01/02/25 20:16 Insulin Aspart (*Bkc) 100 Units/Ml SUB-Q 1 units HS JAYME Administration Protocol Insulin Glargine 15 units 01/02/25 21:00 01/02/25 20:12 Insulin Glargine (*Bkc) 100 Units/Ml SUB-Q 15 units HS JAYME Administration Labetalol HCl 20 mg 01/01/25 17:40 Labetalol Hcl Inj 100 Mg/20 Ml Vial IV PUSH Q6HR PRN Blood Pressure - High Losartan Potassium 25 mg 01/02/25 09:00 01/02/25 13:21 Losartan Potassium 25 Mg Tablet PO 25 mg DAILY JAYME Administration Metoprolol Succinate 200 mg 01/02/25 09:00 01/02/25 13:20 Metoprolol Succinate Ext Rel 100 Mg Tabcr PO 200 mg DAILY JAYME Administration Pantoprazole Sodium 40 mg 01/02/25 09:00 01/02/25 13:21 Pantoprazole 40 Mg Tablet PO 40 mg QAM JAYME Administration Prochlorperazine Edisylate 10 mg 01/01/25 15:46 01/02/25 04:14 Prochlorperazine Edisylate 10 Mg/2 Ml Vial IV PUSH 10 mg Q6H PRN Administration Nausea And Vomiting Sodium Chloride 10 ml 01/01/25 14:00 01/03/25 05:48 Central Line Flush IV PUSH 10 ml Q8HR JAYME Administration Radiology Results: ITS Impressions Chest X-Ray 01/01/25 12:30 Impression: No acute cardiopulmonary abnormality. Chest/Abdomen/Pelvis CTA 01/02/25 08:21 IMPRESSION: CHEST- 1. Left lower lobe atelectasis, aspiration, and/or airspace disease. Improving but persists. 2. Patulous esophagus with wall thickening. Consider endoscopy. 3. Small mediastinal nodes persist. 4. No other acute abnormality. ABDOMEN/PELVIS- 1. Right kidney mass not excluded. Recommend ultrasound and/or MRI. 2. Small scattered nonspecific lymph nodes. Recommend surveillance. 3. No other acute abnormality. Labs Labs: Laboratory Results - last 24 hr 01/02/25 01/02/25 01/03/25 17:30 19:27 04:47 WBC RBC Hgb Hct MCV MCH MCHC RDW Plt Count MPV Sodium Potassium Chloride Carbon Dioxide Anion Gap BUN Creatinine Estim Creat Clear Calc Estimated GFR Glucose POC Capillary Glucose 173 H 245 H 257 H Calcium Phosphorus Magnesium Total Bilirubin AST ALT Alkaline Phosphatase Total Protein Albumin 01/03/25 01/03/25 05:29 07:44 WBC 4.7 RBC 3.41 L Hgb 9.5 L Hct 31.2 L MCV 91.5 MCH 27.9 MCHC 30.4 L RDW 14.6 H Plt Count 182 MPV 11.5 H Sodium 137 Potassium 4.2 Chloride 101 Carbon Dioxide 26 Anion Gap 10 BUN 13 D Creatinine 4.90 H Estim Creat Clear Calc 14 Estimated GFR 10 L Glucose 294 H POC Capillary Glucose 285 H Calcium 7.8 L Phosphorus 5.4 H Magnesium 2.1 Total Bilirubin 0.3 AST 25 ALT 24 Alkaline Phosphatase 147 H Total Protein 6.8 Albumin 3.5 Quality VTE Prophylaxis VTE prophylaxis: mechanical ordered
[2025-01-03] MEDS: INSULIN ASPART (*BKC) 100 UNITS/ML SUB-Q ×2 (09:10→11:51)
[2025-01-03] MEDS: PANTOPRAZOLE 40 MG TABLET PO (09:13)
[2025-01-03] MEDS: METOPROLOL SUCCINATE EXT REL 100 MG TABCR 200 MG PO (09:13)
[2025-01-03] MEDS: LOSARTAN POTASSIUM 25 MG TABLET PO (09:14)
[2025-01-03] MEDS: HYDROmorphone HCL INJ (*CRX) 1 MG/ML SYR 0.5 MG IV PUSH ×4 (11:50→23:17)
--- NOTE | 2025-01-03 12:30 | P.PNNP_ITS ---
Progress Note: A&P Assessment and Plan (1) End stage renal disease: Code(s): N18.6 - End stage renal disease Status: Chronic Assessment and Plan: * HD tomorrow * continue //Wednesday dialyis schedule while hospitalized * follow electrolytes, volume status, and clearance * outpatient dialysis clinic = [facility] in [place] * primary assembling fabricator = Dr. Odilon Tellez (2) DKA (diabetic ketoacidosis): Qualifiers: Diabetes mellitus complication detail: without coma Diabetes mellitus type: type 1 Qualified Code(s): E10.10 - Type 1 diabetes mellitus with ketoacidosis without coma Code(s): E11.10 - Type 2 diabetes mellitus with ketoacidosis without coma Status: Acute Assessment and Plan: * resolved * as noted by evaluation in ER * recurrent and multiple ER visits/hospitalizations for this issue (usually gets most of her care at [facility]) * s/p 1L IVFs in ER and insulin gtt * transitioned to Lantus and SSI (3) Hypertension: Code(s): I10 - Essential (primary) hypertension Status: Chronic Assessment and Plan: * better control at this time * resumed on home medications * follow trend of hemodynamics (4) Anemia: Code(s): D64.9 - Anemia, unspecified Status: Chronic Assessment and Plan: * due to ESRD * Epogen with HD * follow trend of H/H (5) Abdominal pain: Code(s): R10.9 - Unspecified abdominal pain Status: Acute Assessment and Plan: * clinically better * however, apparently a chronic issue/problem * presumably related to nausea/vomiting and gastroparesis * CT of C/A/P results noted (6) Nausea & vomiting: Qualifiers: Vomiting type: unspecified Qualified Code(s): R11.2 - Nausea with vomiting, unspecified Code(s): R11.2 - Nausea with vomiting, unspecified Status: Acute Assessment and Plan: * improvement noted * chronic and long standing issue (per patient and review of records) * cyclic in nature * thought to be secondary to diabetic gastroparesis * apparently, there was some discussion about placing J-tube to ensure adequate nutrition given this issue in the past... (7) Diabetic gastroparesis: Code(s): E11.43 - Type 2 diabetes mellitus with diabetic autonomic (poly)neuropathy; K31.84 - Gastroparesis Status: Acute Assessment and Plan: * known and long standing issue * likely precipiting factor for admission symptoms (8) Type 1 diabetes: Qualifiers: Diabetes mellitus complication status: with hyperglycemia Qualified Code(s): E10.65 - Type 1 diabetes mellitus with hyperglycemia Code(s): E10.9 - Type 1 diabetes mellitus without complications Status: Chronic Assessment and Plan: * follow accu-cheks * transitioned to SSI and Lantus * glycemic control per hospitalist Will continue to follow. L Subjective Date/time seen: 01/03/25 12:30 Interval history: Follow-up for end stage renal disease on hemodialysis. Tolerated dialysis treatment yesterday without any issue or problems; no apparent distress noted at this time although still has on/off mid epigastric pain that comes and goes; no other issues/events overnight or earlier this morning. Exam 2 Narrative: General: WD/WN female in NAD Heart: normal S1 and S2; no rub Lungs: clear to auscultation Abdomen: soft, nontender, nondistended, positive bowel sounds Extremities: no cyanosis or clubbing; no edema Skin: warm and intact Objective Data Vital Signs Vital Signs: Vital Signs Temp Pulse Resp BP Pulse Ox O2 Del Method 01/03/25 12:00 96.7 F L 79 16 120/80 98 01/03/25 09:14 81 01/03/25 09:13 81 01/03/25 08:00 81 01/03/25 08:00 Room Air 01/03/25 05:31 96.1 F L 91 18 122/75 98 01/03/25 04:00 80 01/03/25 00:00 82 01/02/25 20:55 97.6 F 87 16 119/72 98 01/02/25 20:22 Room Air 01/02/25 20:11 86 01/02/25 20:00 87 Intake/Output Intake/Output: Intake & Output 12/31/24 01/01/25 01/02/25 01/03/25 23:59 23:59 23:59 23:59 Intake Total 442.4 490.5 418 Output Total 150 1900 Balance 292.4 -1409.5 418 Meds/Results Medications: Active Medications Generic Name Dose Route Start Last Admin Trade Name Freq PRN Reason Stop Dose Admin Hydrocodone Bitart/Acetaminophen 1 tab 01/03/25 13:28 Hydrocodone/Acetaminophen (*Crx) 5-325 Mg Tablet PO Q6H PRN Pain Rated 4-6 Amlodipine Besylate 10 mg 01/01/25 17:40 01/03/25 09:14 Amlodipine Besylate 10 Mg Tablet PO 10 mg DAILY JAYME Administration Carvedilol 12.5 mg 01/01/25 21:00 01/03/25 09:14 Carvedilol 12.5 Mg Tablet PO 12.5 mg Q12H JAYME Administration Dextrose 12.5 gm 01/01/25 15:42 01/02/25 00:30 Dextrose 50% 25 Gm/50 Ml Syringe IV PUSH 12.5 gm PRN PRN Administration Hypoglycemia Protocol Diphenhydramine HCl 25 mg 01/01/25 15:46 01/03/25 10:53 Diphenhydramine Hcl Inj 50 Mg/Ml Vial IV PUSH 25 mg Q6HR PRN Administration Vomiting Gabapentin 100 mg 01/01/25 22:00 01/03/25 13:30 Gabapentin 100 Mg Capsule PO 100 mg Q8HR JAYME Administration Glucagon 1 mg 01/01/25 15:42 Glucagon For Inj 1 Mg Vial IM PRN PRN Hypoglycemia Protocol Glucose 15 gm 01/01/25 15:42 Glucose Oral Gel 15 Gm Of Glucse In 37.5 Gm Tube PO PRN PRN Hypoglycemia Protocol Heparin Sodium (Beef Lung) 50 units 01/02/25 09:00 01/03/25 07:40 Heparin Flush 50 Units/5 Ml Syringe IV PUSH 50 units QAM JAYME Administration Heparin Sodium (Beef Lung) 50 units 01/01/25 13:14 Heparin Flush 50 Units/5 Ml Syringe IV PUSH PRN PRN after intermittent infusion Heparin Sodium (Beef Lung) 50 units 01/01/25 13:14 Heparin Flush 50 Units/5 Ml Syringe IV PUSH PRN PRN after blood draws Heparin Sodium (Porcine) 500 units 01/01/25 13:14 Heparin Sodium Lock Flush 500 Units/5 Ml Syringe IV PUSH PRN PRN see comments below Hydromorphone HCl 0.5 mg 01/03/25 11:03 01/03/25 14:57 Hydromorphone Hcl Inj (*Crx) 1 Mg/Ml Syr IV PUSH 0.5 mg Q3H PRN Administration Pain Rated 7-10 Dextrose 1,000 mls @ 100 mls/hr 01/01/25 15:42 Dextrose 5% 1,000 Ml IVPB PRN PRN Hypoglycemia Protocol Insulin Aspart 3 - 6 units 01/02/25 08:00 01/03/25 15:43 Insulin Aspart (*Bkc) 100 Units/Ml SUB-Q Not Given TIDWM [facility] Protocol Insulin Aspart 2 - 5 units 01/03/25 17:00 01/03/25 16:32 Insulin Aspart (*Bkc) 100 Units/Ml SUB-Q Not Given TIDWM [facility] Protocol Insulin Human NPH 12 units 01/04/25 06:30 Insulin Human Nph (*Bkc) 100 Units/Ml SUB-Q DAILY@0630 [facility] Insulin Human NPH 8 units 01/03/25 21:00 Insulin Human Nph (*Bkc) 100 Units/Ml SUB-Q HS [facility] Labetalol HCl 20 mg 01/01/25 17:40 Labetalol Hcl Inj 100 Mg/20 Ml Vial IV PUSH Q6HR PRN Blood Pressure - High Losartan Potassium 25 mg 01/02/25 09:00 01/03/25 09:14 Losartan Potassium 25 Mg Tablet PO 25 mg DAILY JAYME Administration Metoprolol Succinate 200 mg 01/02/25 09:00 01/03/25 09:13 Metoprolol Succinate Ext Rel 100 Mg Tabcr PO 200 mg DAILY JAYME Administration Pantoprazole Sodium 40 mg 01/02/25 09:00 01/03/25 09:13 Pantoprazole 40 Mg Tablet PO 40 mg QAM JAYME Administration Prochlorperazine Edisylate 10 mg 01/01/25 15:46 01/02/25 04:14 Prochlorperazine Edisylate 10 Mg/2 Ml Vial IV PUSH 10 mg Q6H PRN Administration Nausea And Vomiting Sodium Chloride 10 ml 01/01/25 14:00 01/03/25 11:54 Central Line Flush IV PUSH 10 ml Q8HR JAYME Administration Radiology Results: ITS Impressions Chest X-Ray 01/01/25 12:30 Impression: No acute cardiopulmonary abnormality. Chest/Abdomen/Pelvis CTA 01/02/25 08:21 IMPRESSION: CHEST- 1. Left lower lobe atelectasis, aspiration, and/or airspace disease. Improving but persists. 2. Patulous esophagus with wall thickening. Consider endoscopy. 3. Small mediastinal nodes persist. 4. No other acute abnormality. ABDOMEN/PELVIS- 1. Right kidney mass not excluded. Recommend ultrasound and/or MRI. 2. Small scattered nonspecific lymph nodes. Recommend surveillance. 3. No other acute abnormality. Labs Labs: Laboratory Tests 01/03/25 05:29 01/03/25 05:29 Calcium 7.8 L Phosphorus 5.4 H Magnesium 2.1 Total Bilirubin 0.3 AST 25 ALT 24 Alkaline Phosphatase 147 H Total Protein 6.8 Albumin 3.5 Microbiology 01/02/25 06:02 Blood Blood Culture - Preliminary 01/02/25 06:04 Blood Blood Culture - Preliminary
[2025-01-03] MEDS: INSULIN HUMAN NPH (*BKC) 100 UNITS/ML 8 UNITS SUB-Q (21:09)
[2025-01-04] VITALS (27 sets, daily range): BP systolic 127–177; BP diastolic 73–103; PULSE 73–94; RESP 12–16; TEMP 35.8–37.5; O2SAT 95–97
[2025-01-04] MEDS: HYDROmorphone HCL INJ (*CRX) 1 MG/ML SYR 0.5 MG IV PUSH ×7 (02:49→22:07)
[2025-01-04] MEDS: GABAPENTIN 100 MG CAPSULE PO ×3 (06:06→20:55)
[2025-01-04] MEDS: CENTRAL LINE FLUSH 10 ML IV PUSH ×3 (06:07→20:55)
[2025-01-04] MEDS: INSULIN HUMAN NPH (*BKC) 100 UNITS/ML 12 UNITS SUB-Q (06:23)
[2025-01-04 06:39] LABS: Hematocrit 30.9 % (37.0-47.0); Hemoglobin 9.3 g/dL (12.0-15.0); Mean Corpuscular HGB Conc 30.1 g/dl (32-36); Mean Corpuscular Hemoglobin 27.8 pg (26-34); Mean Corpuscular Volume 92.2 fl (80-100); Platelet Count Result 203 k/mm3 (150-375); Red Blood Count 3.35 M/mm3 (4.2-5.4); White Blood Count 6.3 K/mm3 (4.5-10.0)
[2025-01-04 07:07] LABS: Alanine Aminotransferase 24 U/L (6-35); Albumin Level 3.3 g/dL (3.5-5.1); Alkaline Phosphatase 158 U/L (38-126); Anion Gap 8 mmol/L (4-12); Aspartate Amino Transferase 26 U/L (14-36); Bilirubin,Total 0.3 mg/dL (0.2-1.3); Blood Urea Nitrogen 19 mg/dL (7-17); Calcium 7.6 mg/dL (8.4-10.2); Carbon Dioxide 28 mmol/L (22-30); Chloride 101 mmol/L (98-107); Estimated CRCL calculation 10 ml/min; Estimated Glomerular Filt Rate 7; Glucose 319 mg/dL (65-110); Magnesium 2.3 mg/dL (1.6-2.3); Potassium 4.3 mmol/L (3.4-5.0); Sodium 137 mmol/L (137-145); Total Protein 6.6 g/dL (6.3-8.2)
[2025-01-04] MEDS: INSULIN ASPART (*BKC) 100 UNITS/ML SUB-Q (08:39)
[2025-01-04] MEDS: METOPROLOL SUCCINATE EXT REL 100 MG TABCR 200 MG PO (08:40)
[2025-01-04] MEDS: PANTOPRAZOLE 40 MG TABLET PO (08:40)
[2025-01-04] MEDS: LOSARTAN POTASSIUM 25 MG TABLET PO (08:41)
--- NOTE | 2025-01-04 13:05 | PC.NURSE ---
to dialysis per hospital bed.
--- NOTE | 2025-01-04 14:07 | P.PNNP_ITS ---
Progress Note: A&P Assessment and Plan (1) End stage renal disease: Code(s): N18.6 - End stage renal disease Status: Chronic Assessment and Plan: * HD today * continue //Wednesday dialyis schedule while hospitalized * follow electrolytes, volume status, and clearance * outpatient dialysis clinic = [facility] in [place] * primary municipal court magistrate = Dr. Odilon Tellez (2) DKA (diabetic ketoacidosis): Qualifiers: Diabetes mellitus complication detail: without coma Diabetes mellitus type: type 1 Qualified Code(s): E10.10 - Type 1 diabetes mellitus with ketoacidosis without coma Code(s): E11.10 - Type 2 diabetes mellitus with ketoacidosis without coma Status: Acute Assessment and Plan: * resolved * as noted by evaluation in ER * recurrent and multiple ER visits/hospitalizations for this issue (usually gets most of her care at [facility]) * s/p 1L IVFs in ER and insulin gtt * transitioned to Lantus and SSI (3) Hypertension: Code(s): I10 - Essential (primary) hypertension Status: Chronic Assessment and Plan: * somewhat erratic * resumed on home medications * consider titrating losartan * may improve with dialysis * follow trend of hemodynamics (4) Anemia: Code(s): D64.9 - Anemia, unspecified Status: Chronic Assessment and Plan: * due to ESRD * Epogen with HD * follow trend of H/H (5) Abdominal pain: Code(s): R10.9 - Unspecified abdominal pain Status: Acute Assessment and Plan: * clinically better * however, apparently a chronic issue/problem * presumably related to nausea/vomiting and gastroparesis * CT of C/A/P results noted (6) Nausea & vomiting: Qualifiers: Vomiting type: unspecified Qualified Code(s): R11.2 - Nausea with vomiting, unspecified Code(s): R11.2 - Nausea with vomiting, unspecified Status: Acute Assessment and Plan: * improvement noted * chronic and long standing issue (per patient and review of records) * cyclic in nature * thought to be secondary to diabetic gastroparesis * apparently, there was some discussion about placing J-tube to ensure adequate nutrition given this issue in the past... (7) Diabetic gastroparesis: Code(s): E11.43 - Type 2 diabetes mellitus with diabetic autonomic (poly)neuropathy; K31.84 - Gastroparesis Status: Acute Assessment and Plan: * known and long standing issue * likely precipiting factor for admission symptoms (8) Type 1 diabetes: Qualifiers: Diabetes mellitus complication status: with hyperglycemia Qualified Code(s): E10.65 - Type 1 diabetes mellitus with hyperglycemia Code(s): E10.9 - Type 1 diabetes mellitus without complications Status: Chronic Assessment and Plan: * follow accu-cheks * transitioned to SSI and Lantus * glycemic control per hospitalist Will continue to follow. L Subjective Date/time seen: 01/04/25 13:55 Interval history: Follow-up for end stage renal disease on hemodialysis. Tolerating dialysis treatment at the time of my visit (seen on HD at 1:45pm - just started treatment); no apparent distress voiced when seen; no apparent abdominal pain but does state some on/off nausea; erratic BP noted but asymptomatic. Exam 2 Narrative: General: WD/WN female in NAD Heart: normal S1 and S2; no rub Lungs: clear to auscultation Abdomen: soft, nontender, nondistended, positive bowel sounds Extremities: no cyanosis or clubbing; no edema Skin: no rash Objective Data Vital Signs Vital Signs: Vital Signs Temp Pulse Resp BP Pulse Ox O2 Del Method 01/04/25 13:45 85 161/94 H 01/04/25 13:41 84 150/96 H 01/04/25 13:09 98.6 F 86 16 177/101 H 97 01/04/25 12:00 83 01/04/25 08:41 73 01/04/25 08:40 73 01/04/25 08:10 Room Air 01/04/25 08:00 78 01/04/25 04:25 96.5 F L 73 15 127/76 95 01/04/25 04:00 88 01/04/25 00:00 77 01/03/25 21:42 96.5 F L 77 15 143/89 H 100 01/03/25 20:03 80 01/03/25 20:00 Room Air 01/03/25 20:00 78 Intake/Output Intake/Output: Intake & Output 01/01/25 01/02/25 01/03/25 01/04/25 23:59 23:59 23:59 23:59 Intake Total 442.4 490.5 778 1200 Output Total 150 1900 Balance 292.4 -1409.5 778 1200 Meds/Results Medications: Active Medications Generic Name Dose Route Start Last Admin Trade Name Freq PRN Reason Stop Dose Admin Hydrocodone Bitart/Acetaminophen 1 tab 01/03/25 13:28 Hydrocodone/Acetaminophen (*Crx) 5-325 Mg Tablet PO Q6H PRN Pain Rated 4-6 Amlodipine Besylate 10 mg 01/01/25 17:40 01/04/25 08:41 Amlodipine Besylate 10 Mg Tablet PO 10 mg DAILY JAYME Administration Carvedilol 12.5 mg 01/01/25 21:00 01/04/25 08:41 Carvedilol 12.5 Mg Tablet PO 12.5 mg Q12H JAYME Administration Dextrose 12.5 gm 01/01/25 15:42 01/02/25 00:30 Dextrose 50% 25 Gm/50 Ml Syringe IV PUSH 12.5 gm PRN PRN Administration Hypoglycemia Protocol Diphenhydramine HCl 25 mg 01/01/25 15:46 01/04/25 14:27 Diphenhydramine Hcl Inj 50 Mg/Ml Vial IV PUSH 25 mg Q6HR PRN Administration Vomiting Epoetin Live-epbx 10,000 units 01/04/25 18:16 01/04/25 15:43 Epoetin Live-Epbx 10,000 Units/Ml Vial IV PUSH 01/04/25 18:17 10,000 units ONCE ONE Administration Gabapentin 100 mg 01/01/25 22:00 01/04/25 14:27 Gabapentin 100 Mg Capsule PO 100 mg Q8HR JAYME Administration Glucagon 1 mg 01/01/25 15:42 Glucagon For Inj 1 Mg Vial IM PRN PRN Hypoglycemia Protocol Glucose 15 gm 01/01/25 15:42 Glucose Oral Gel 15 Gm Of Glucse In 37.5 Gm Tube PO PRN PRN Hypoglycemia Protocol Heparin Sodium (Beef Lung) 50 units 01/02/25 09:00 01/04/25 08:41 Heparin Flush 50 Units/5 Ml Syringe IV PUSH Not Given QAM JAYME Heparin Sodium (Beef Lung) 50 units 01/01/25 13:14 Heparin Flush 50 Units/5 Ml Syringe IV PUSH PRN PRN after intermittent infusion Heparin Sodium (Beef Lung) 50 units 01/01/25 13:14 Heparin Flush 50 Units/5 Ml Syringe IV PUSH PRN PRN after blood draws Heparin Sodium (Porcine) 500 units 01/01/25 13:14 Heparin Sodium Lock Flush 500 Units/5 Ml Syringe IV PUSH PRN PRN see comments below Hydromorphone HCl 0.5 mg 01/03/25 11:03 01/04/25 15:38 Hydromorphone Hcl Inj (*Crx) 1 Mg/Ml Syr IV PUSH 0.5 mg Q3H PRN Administration Pain Rated 7-10 Dextrose 1,000 mls @ 100 mls/hr 01/01/25 15:42 Dextrose 5% 1,000 Ml IVPB PRN PRN Hypoglycemia Protocol Albumin Human 50 mls @ 999 mls/hr 01/04/25 06:16 Albutein IVPB 02/03/25 06:15 Q10M PRN HYPOTENSION Insulin Aspart 2 - 5 units 01/03/25 17:00 01/04/25 11:58 Insulin Aspart (*Bkc) 100 Units/Ml SUB-Q Not Given TIDWM JAYME Protocol Insulin Human NPH 12 units 01/04/25 06:30 01/04/25 06:23 Insulin Human Nph (*Bkc) 100 Units/Ml SUB-Q 12 units DAILY@0630 JAYME Administration Insulin Human NPH 8 units 01/03/25 21:00 01/03/25 21:09 Insulin Human Nph (*Bkc) 100 Units/Ml SUB-Q 8 units HS JAYME Administration Isosorbide Mononitrate 30 mg 01/04/25 15:40 Isosorbide Mononitrate 30 Mg Tab.Er.24h PO QAM JAYME Labetalol HCl 20 mg 01/01/25 17:40 Labetalol Hcl Inj 100 Mg/20 Ml Vial IV PUSH Q6HR PRN Blood Pressure - High Losartan Potassium 25 mg 01/02/25 09:00 01/04/25 08:41 Losartan Potassium 25 Mg Tablet PO 25 mg DAILY JAYME Administration Metoprolol Succinate 200 mg 01/02/25 09:00 01/04/25 08:40 Metoprolol Succinate Ext Rel 100 Mg Tabcr PO 200 mg DAILY JAYEM Administration Pantoprazole Sodium 40 mg 01/02/25 09:00 01/04/25 08:40 Pantoprazole 40 Mg Tablet PO 40 mg QAM JAYME Administration Prochlorperazine Edisylate 10 mg 01/01/25 15:46 01/02/25 04:14 Prochlorperazine Edisylate 10 Mg/2 Ml Vial IV PUSH 10 mg Q6H PRN Administration Nausea And Vomiting Sodium Chloride 10 ml 01/01/25 14:00 01/04/25 14:00 Central Line Flush IV PUSH 10 ml Q8HR JAYME Administration Radiology Results: ITS Impressions Chest X-Ray 01/01/25 12:30 Impression: No acute cardiopulmonary abnormality. Chest/Abdomen/Pelvis CTA 01/02/25 08:21 IMPRESSION: CHEST- 1. Left lower lobe atelectasis, aspiration, and/or airspace disease. Improving but persists. 2. Patulous esophagus with wall thickening. Consider endoscopy. 3. Small mediastinal nodes persist. 4. No other acute abnormality. ABDOMEN/PELVIS- 1. Right kidney mass not excluded. Recommend ultrasound and/or MRI. 2. Small scattered nonspecific lymph nodes. Recommend surveillance. 3. No other acute abnormality. Abdomen X-Ray 01/03/25 20:54 IMPRESSION: 1. There is small amount of residual oral contrast material in the distal colon. No dilated loops of gas-filled bowel to suggest obstruction. Labs Labs: Laboratory Tests 01/04/25 06:06 01/04/25 06:06 Calcium 7.6 L Phosphorus 6.1 H Magnesium 2.3 Total Bilirubin 0.3 AST 26 ALT 24 Alkaline Phosphatase 158 H Total Protein 6.6 Albumin 3.3 L Microbiology 01/02/25 06:02 Blood Blood Culture - Preliminary 01/02/25 06:04 Blood Blood Culture - Preliminary
--- NOTE | 2025-01-04 15:40 | PM.IMPN ---
Progress Note: A&P Assessment and Plan (1) DKA (diabetic ketoacidosis): Qualifiers: Diabetes mellitus complication detail: without coma Diabetes mellitus type: type 1 Qualified Code(s): E10.10 - Type 1 diabetes mellitus with ketoacidosis without coma Code(s): E11.10 - Type 2 diabetes mellitus with ketoacidosis without coma Status: Acute Assessment and Plan: Glucose > 500 on admission, likely secondary to cyclical vomiting in the setting of type 1 diabetic Admitted to the ICU where she recieved cautious IVF bolus and started on infusion due to her history of end-stage renal disease Insulin infusion started and Q1H glucose monitoring was done Patient's anion gap has closed and symptoms improved before transitioning back to subcutaneous insulin. - hypoglycemia protocol - POC blood glucose ACHS - correct regimen ordered - SSI and lantus - A1C 8.4 Dicussed diabetes regimen with patient and she states that she has not been on lantus for quite some time. She then pulled up her MyChart with [facility] and showed that she is on NPH 15 units in the am and 10 units in the pm per her director of spa and guest experience Dr. Saucedo She states that glucose has been well controlled on this regimen. Will transition patient to the NPH lowering the dose by 20% given hospitalization. NPH 12 units AM and 8 units HS Continue to closely monitor glucose levels. Patient has continuous dexcom (2) Abdominal pain: Code(s): R10.9 - Unspecified abdominal pain Status: Acute Assessment and Plan: Patient presented with abdominal pain which is likely secondary to combination of gastroparesis and DKA CT scan showed small mediastinal nodes persisting, atelectasis and possible right kidney mass otherwise unremarkable Continues to endorse epigastric pain wrapping to the back Her lipase was normal History of gastroparesis, no BM for past 2-3 days and decreased flatus KUB ordered Encouraged adequate hydration Started on Protonix She had a recent EGD and colonoscopy at [facility]. Requested records from [facility] (3) Hypertension: Code(s): I10 - Essential (primary) hypertension Status: Chronic Assessment and Plan: Chronic, continue home medications BP still 171/96 today - amlodipine 10 mg daily - coreg 12.5 mg BID - losartan 25 mg daily - metoprolol 200 mg daialy - added isosorbide mononitrate monitor ine more day (4) End stage renal disease on dialysis: Code(s): N18.6 - End stage renal disease; Z99.2 - Dependence on renal dialysis Status: Acute Assessment and Plan: Nephrology consulted continue //Wednesday dialyis schedule while hospitalized follow electrolytes, volume status, and clearance outpatient dialysis clinic = [facility] in [place] primary heel lift gouger = Dr. Odilon Tellez Plan Right Renal mass US renal ordered monitor DVT prophylaxis on Sq Heparin Subjective Date/time seen: 01/04/25 15:40 Interval history: Patient comfortable at bedside althought she did report nausea Today Blood pressure 171/96, added Isosorbide mononitrate monitor one more day Review of Systems Review of Systems: 12 systems were reviewed and are negative except for as per HPI. All systems reviewed & are unremarkable except as noted in HPI and below (HPI) Exam Narrative: AF HR 91 RR 18 Spo2 98 BP 122/75 General: female in no acute respiratory distress who is nontoxic appearing, sitting up in bed HEENT: Normocephalic. Atraumatic. Extraocular movement intact. Sclera clear and anicteric. No facial asymmetry. Chest: Lungs are clear to auscultation bilaterally. No wheezes or crackles. CV: Heart was regular rate and rhythm. S1-S2. No murmurs, gallops, or rubs. Abd: Abdomen was soft. Tender to epigastric region. Nondistended. Positive bowel sounds. Ext: No clubbing, cyanosis, or edema. DP pulses bilaterally. Neuro: Patient is alert and oriented x4. Speech is clear. Objective Data Vital Signs Vital Signs: Vital Signs - 24 hr 01/03/25 16:00 01/03/25 20:00 01/03/25 20:00 Temperature Pulse Rate 75 78 Respiratory Rate Blood Pressure Pulse Oximetry Oxygen Delivery Room Air 01/03/25 20:03 01/03/25 21:42 01/04/25 00:00 Temperature 96.5 F L Pulse Rate 80 77 77 Respiratory Rate 15 Blood Pressure 143/89 H Pulse Oximetry 100 Oxygen Delivery 01/04/25 04:00 01/04/25 04:25 01/04/25 08:00 Temperature 96.5 F L Pulse Rate 88 73 78 Respiratory Rate 15 Blood Pressure 127/76 Pulse Oximetry 95 Oxygen Delivery 01/04/25 08:10 01/04/25 08:40 01/04/25 08:41 Temperature Pulse Rate 73 73 Respiratory Rate Blood Pressure Pulse Oximetry Oxygen Delivery Room Air 01/04/25 13:09 01/04/25 13:41 01/04/25 13:45 Temperature 98.6 F Pulse Rate 86 84 85 Respiratory Rate 16 Blood Pressure 177/101 H 150/96 H 161/94 H Pulse Oximetry 97 Oxygen Delivery 01/04/25 14:00 01/04/25 14:15 01/04/25 14:30 Temperature Pulse Rate 88 87 87 Respiratory Rate Blood Pressure 153/103 H 163/95 H 167/98 H Pulse Oximetry Oxygen Delivery 01/04/25 14:45 01/04/25 15:00 01/04/25 15:15 Temperature Pulse Rate 87 87 87 Respiratory Rate Blood Pressure 167/99 H 167/96 H 173/92 H Pulse Oximetry Oxygen Delivery 01/04/25 15:30 Temperature Pulse Rate 89 Respiratory Rate Blood Pressure 171/96 H Pulse Oximetry Oxygen Delivery Intake/Output Intake/Output: Intake & Output 01/01/25 01/02/25 01/03/25 01/04/25 23:59 23:59 23:59 23:59 Intake Total 442.4 490.5 778 720 Output Total 150 1900 Balance 292.4 -1409.5 778 720 Meds/Results Medications: Active Medications Generic Name Dose Route Start Last Admin Trade Name Freq PRN Reason Stop Dose Admin Hydrocodone Bitart/Acetaminophen 1 tab 01/03/25 13:28 Hydrocodone/Acetaminophen (*Crx) 5-325 Mg Tablet PO Q6H PRN Pain Rated 4-6 Amlodipine Besylate 10 mg 01/01/25 17:40 01/04/25 08:41 Amlodipine Besylate 10 Mg Tablet PO 10 mg DAILY JAYME Administration Carvedilol 12.5 mg 01/01/25 21:00 01/04/25 08:41 Carvedilol 12.5 Mg Tablet PO 12.5 mg Q12H JAYME Administration Dextrose 12.5 gm 01/01/25 15:42 01/02/25 00:30 Dextrose 50% 25 Gm/50 Ml Syringe IV PUSH 12.5 gm PRN PRN Administration Hypoglycemia Protocol Diphenhydramine HCl 25 mg 01/01/25 15:46 01/04/25 14:27 Diphenhydramine Hcl Inj 50 Mg/Ml Vial IV PUSH 25 mg Q6HR PRN Administration Vomiting Epoetin Live-epbx 10,000 units 01/04/25 18:16 Epoetin Live-Epbx 10,000 Units/Ml Vial IV PUSH 01/04/25 18:17 ONCE ONE Gabapentin 100 mg 01/01/25 22:00 01/04/25 14:27 Gabapentin 100 Mg Capsule PO 100 mg Q8HR JAYME Administration Glucagon 1 mg 01/01/25 15:42 Glucagon For Inj 1 Mg Vial IM PRN PRN Hypoglycemia Protocol Glucose 15 gm 01/01/25 15:42 Glucose Oral Gel 15 Gm Of Glucse In 37.5 Gm Tube PO PRN PRN Hypoglycemia Protocol Heparin Sodium (Beef Lung) 50 units 01/02/25 09:00 01/04/25 08:41 Heparin Flush 50 Units/5 Ml Syringe IV PUSH Not Given QAM JAYME Heparin Sodium (Beef Lung) 50 units 01/01/25 13:14 Heparin Flush 50 Units/5 Ml Syringe IV PUSH PRN PRN after intermittent infusion Heparin Sodium (Beef Lung) 50 units 01/01/25 13:14 Heparin Flush 50 Units/5 Ml Syringe IV PUSH PRN PRN after blood draws Heparin Sodium (Porcine) 500 units 01/01/25 13:14 Heparin Sodium Lock Flush 500 Units/5 Ml Syringe IV PUSH PRN PRN see comments below Hydromorphone HCl 0.5 mg 01/03/25 11:03 01/04/25 15:38 Hydromorphone Hcl Inj (*Crx) 1 Mg/Ml Syr IV PUSH 0.5 mg Q3H PRN Administration Pain Rated 7-10 Dextrose 1,000 mls @ 100 mls/hr 01/01/25 15:42 Dextrose 5% 1,000 Ml IVPB PRN PRN Hypoglycemia Protocol Albumin Human 50 mls @ 999 mls/hr 01/04/25 06:16 Albutein IVPB 02/03/25 06:15 Q10M PRN HYPOTENSION Insulin Aspart 2 - 5 units 01/03/25 17:00 01/04/25 11:58 Insulin Aspart (*Bkc) 100 Units/Ml SUB-Q Not Given TIDWM JAYME Protocol Insulin Human NPH 12 units 01/04/25 06:30 01/04/25 06:23 Insulin Human Nph (*Bkc) 100 Units/Ml SUB-Q 12 units DAILY@0630 JAYME Administration Insulin Human NPH 8 units 01/03/25 21:00 01/03/25 21:09 Insulin Human Nph (*Bkc) 100 Units/Ml SUB-Q 8 units HS JAYME Administration Labetalol HCl 20 mg 01/01/25 17:40 Labetalol Hcl Inj 100 Mg/20 Ml Vial IV PUSH Q6HR PRN Blood Pressure - High Losartan Potassium 25 mg 01/02/25 09:00 01/04/25 08:41 Losartan Potassium 25 Mg Tablet PO 25 mg DAILY JAYME Administration Metoprolol Succinate 200 mg 01/02/25 09:00 01/04/25 08:40 Metoprolol Succinate Ext Rel 100 Mg Tabcr PO 200 mg DAILY JAYME Administration Pantoprazole Sodium 40 mg 01/02/25 09:00 01/04/25 08:40 Pantoprazole 40 Mg Tablet PO 40 mg QAM JAYME Administration Prochlorperazine Edisylate 10 mg 01/01/25 15:46 01/02/25 04:14 Prochlorperazine Edisylate 10 Mg/2 Ml Vial IV PUSH 10 mg Q6H PRN Administration Nausea And Vomiting Sodium Chloride 10 ml 01/01/25 14:00 01/04/25 06:07 Central Line Flush IV PUSH 10 ml Q8HR JAYME Administration Radiology Results: ITS Impressions Chest X-Ray 01/01/25 12:30 Impression: No acute cardiopulmonary abnormality. Chest/Abdomen/Pelvis CTA 01/02/25 08:21 IMPRESSION: CHEST- 1. Left lower lobe atelectasis, aspiration, and/or airspace disease. Improving but persists. 2. Patulous esophagus with wall thickening. Consider endoscopy. 3. Small mediastinal nodes persist. 4. No other acute abnormality. ABDOMEN/PELVIS- 1. Right kidney mass not excluded. Recommend ultrasound and/or MRI. 2. Small scattered nonspecific lymph nodes. Recommend surveillance. 3. No other acute abnormality. Abdomen X-Ray 01/03/25 20:54 IMPRESSION: 1. There is small amount of residual oral contrast material in the distal colon. No dilated loops of gas-filled bowel to suggest obstruction. Labs Labs: Laboratory Results - last 24 hr 01/03/25 01/03/25 01/04/25 16:23 20:34 06:06 WBC 6.3 RBC 3.35 L Hgb 9.3 L Hct 30.9 L MCV 92.2 MCH 27.8 MCHC 30.1 L RDW 14.6 H Plt Count 203 MPV 11.7 H Sodium 137 Potassium 4.3 Chloride 101 Carbon Dioxide 28 Anion Gap 8 BUN 19 H Creatinine 6.77 H Estim Creat Clear Calc 10 Estimated GFR 7 L Glucose 319 H POC Capillary Glucose 133 H 166 H Calcium 7.6 L Phosphorus 6.1 H Magnesium 2.3 Total Bilirubin 0.3 AST 26 ALT 24 Alkaline Phosphatase 158 H Total Protein 6.6 Albumin 3.3 L 01/04/25 01/04/25 01/04/25 06:25 08:00 11:23 WBC RBC Hgb Hct MCV MCH MCHC RDW Plt Count MPV Sodium Potassium Chloride Carbon Dioxide Anion Gap BUN Creatinine Estim Creat Clear Calc Estimated GFR Glucose POC Capillary Glucose 296 H 294 H 191 H Calcium Phosphorus Magnesium Total Bilirubin AST ALT Alkaline Phosphatase Total Protein Albumin Quality VTE Prophylaxis VTE prophylaxis: mechanical ordered
[2025-01-04] MEDS: EPOETIN ALFA-EPBX 10,000 UNITS/ML VIAL 10000 UNITS IV PUSH (15:43)
[2025-01-04] MEDS: ISOSORBIDE MONONITRATE 30 MG TAB.ER.24H PO (17:07)
[2025-01-04] MEDS: INSULIN HUMAN NPH (*BKC) 100 UNITS/ML 8 UNITS SUB-Q (20:54)
[2025-01-05] VITALS: PULSE 88
[2025-01-05] MEDS: HYDROmorphone HCL INJ (*CRX) 1 MG/ML SYR 0.5 MG IV PUSH ×3 (01:38→08:09)
[2025-01-05 04:00] VITALS: PULSE 85
[2025-01-05] MEDS: GLUCOSE ORAL GEL 15 GM OF GLUCSE IN 37.5 GM TUBE PO (04:08)
[2025-01-05 04:10] VITALS: BP 126/76; PULSE 84; RESP 16; TEMP 36.2; O2SAT 100
[2025-01-05] MEDS: GABAPENTIN 100 MG CAPSULE PO (06:01)
[2025-01-05] MEDS: CENTRAL LINE FLUSH 10 ML IV PUSH ×2 (06:01→12:59)
[2025-01-05 06:23] LABS: Hematocrit 28.0 % (37.0-47.0); Hemoglobin 8.4 g/dL (12.0-15.0); Immature Granulocyte Percent A 0.3 % (0-0.5); Lymphocytes Absolute Auto 2.22 K/mm3 (0.9-3.2); Mean Corpuscular HGB Conc 30.0 g/dl (32-36); Mean Corpuscular Hemoglobin 27.6 pg (26-34); Mean Corpuscular Volume 92.1 fl (80-100); Nucleated Red Blood Cells Absolute Auto 0.000 K/mm3 (0.0-0.012); Nucleated Red Blood Cells Perc 0.0 % (0.0-0.2); Platelet Count Result 207 k/mm3 (150-375); Red Blood Count 3.04 M/mm3 (4.2-5.4); White Blood Count 6.2 K/mm3 (4.5-10.0)
[2025-01-05] MEDS: INSULIN HUMAN NPH (*BKC) 100 UNITS/ML 12 UNITS SUB-Q (06:24)
[2025-01-05 06:53] LABS: Alanine Aminotransferase 25 U/L (6-35); Albumin Level 3.2 g/dL (3.5-5.1); Alkaline Phosphatase 121 U/L (38-126); Anion Gap 2 mmol/L (4-12); Aspartate Amino Transferase 27 U/L (14-36); Bilirubin,Total 0.1 mg/dL (0.2-1.3); Blood Urea Nitrogen 9 mg/dL (7-17); Calcium 8.0 mg/dL (8.4-10.2); Carbon Dioxide 33 mmol/L (22-30); Chloride 101 mmol/L (98-107); Estimated CRCL calculation 16 ml/min; Estimated Glomerular Filt Rate 13; Glucose 93 mg/dL (65-110); Magnesium 2.0 mg/dL (1.6-2.3); Potassium 3.7 mmol/L (3.4-5.0); Sodium 136 mmol/L (137-145); Total Protein 6.4 g/dL (6.3-8.2)
[2025-01-05 08:13] VITALS: PULSE 78
[2025-01-05] MEDS: PANTOPRAZOLE 40 MG TABLET PO (08:13)
[2025-01-05] MEDS: METOPROLOL SUCCINATE EXT REL 100 MG TABCR 200 MG PO (08:13)
[2025-01-05 08:15] VITALS: BP 135/70; PULSE 78; PULSE 80; O2SAT 97
[2025-01-05] MEDS: ISOSORBIDE MONONITRATE 30 MG TAB.ER.24H PO (08:15)
[2025-01-05] MEDS: LOSARTAN POTASSIUM 25 MG TABLET PO (08:15)
--- NOTE | 2025-01-05 09:50 | PM.PNNEP ---
Progress Note: A&P Assessment and Plan (1) End stage renal disease: Code(s): N18.6 - End stage renal disease Status: Chronic Assessment and Plan: HD tomorrow continue //Wednesday dialyis schedule while hospitalized follow electrolytes, volume status, and clearance outpatient dialysis clinic = [facility] primary paper conservator = Dr. Odilon Tellez (2) DKA (diabetic ketoacidosis): Qualifiers: Diabetes mellitus complication detail: without coma Diabetes mellitus type: type 1 Qualified Code(s): E10.10 - Type 1 diabetes mellitus with ketoacidosis without coma Code(s): E11.10 - Type 2 diabetes mellitus with ketoacidosis without coma Status: Acute Assessment and Plan: resolved as noted by evaluation in ER recurrent and multiple ER visits/hospitalizations for this issue (usually gets most of her care at [facility]) s/p 1L IVFs in ER and insulin gtt transitioned to Lantus and SSI (3) Hypertension: Code(s): I10 - Essential (primary) hypertension Status: Chronic Assessment and Plan: somewhat erratic resumed on home medications consider titrating losartan may improve with dialysis follow trend of hemodynamics (4) Anemia: Code(s): D64.9 - Anemia, unspecified Status: Chronic Assessment and Plan: due to ESRD Epogen with HD follow trend of H/H (5) Abdominal pain: Code(s): R10.9 - Unspecified abdominal pain Status: Acute Assessment and Plan: clinically better however, apparently a chronic issue/problem presumably related to nausea/vomiting and gastroparesis CT of C/A/P results noted (6) Nausea & vomiting: Qualifiers: Vomiting type: unspecified Qualified Code(s): R11.2 - Nausea with vomiting, unspecified Code(s): R11.2 - Nausea with vomiting, unspecified Status: Acute Assessment and Plan: improvement noted chronic and long standing issue (per patient and review of records) cyclic in nature thought to be secondary to diabetic gastroparesis apparently, there was some discussion about placing J-tube to ensure adequate nutrition given this issue in the past... (7) Diabetic gastroparesis: Code(s): E11.43 - Type 2 diabetes mellitus with diabetic autonomic (poly)neuropathy; K31.84 - Gastroparesis Status: Acute Assessment and Plan: known and long standing issue likely precipiting factor for admission symptoms (8) Type 1 diabetes: Qualifiers: Diabetes mellitus complication status: with hyperglycemia Qualified Code(s): E10.65 - Type 1 diabetes mellitus with hyperglycemia Code(s): E10.9 - Type 1 diabetes mellitus without complications Status: Chronic Assessment and Plan: follow accu-cheks transitioned to SSI and Lantus glycemic control per hospitalist Not opposed to discharge from renal perspective if otherwise medically stable -- she can follow-up with her primary paper conservator at her outpatient dialysis center for ongoing management of her ESRD. Will continue to follow. Subjective Date/time seen: 01/05/25 09:50 Interval history: Follow-up for end stage renal disease on hemodialysis. Tolerated dialysis treatment yesterday without any issue or problems; BP seems to be doing better at this time; no other issues/events overnight or earlier this morning; no further nausea/vomiting or abdominal pain voiced when seen. Exam Narrative: General: WD/WN female in NAD Heart: normal S1 and S2; no rub Lungs: clear to auscultation Abdomen: soft, nontender, nondistended, positive bowel sounds Extremities: no cyanosis or clubbing; no edema Skin: no nodules Objective Data Vital Signs Vital Signs: Vital Signs Temp Pulse Resp BP Pulse Ox O2 Del Method 01/05/25 08:15 78 135/70 97 01/05/25 08:15 80 01/05/25 08:15 78 97 Room Air 01/05/25 08:15 78 01/05/25 08:13 78 01/05/25 04:10 97.2 F L 84 16 126/76 100 01/05/25 04:00 85 01/05/25 00:00 88 01/04/25 20:55 94 01/04/25 20:00 94 16 96 Room Air 01/04/25 20:00 91 01/04/25 19:23 98.1 F 91 16 143/73 H 96 01/04/25 16:51 98.8 F 89 12 143/86 H 95 01/04/25 16:45 89 143/86 H 01/04/25 16:30 88 158/86 H 01/04/25 16:15 88 161/94 H 01/04/25 16:00 86 01/04/25 16:00 88 168/90 H 01/04/25 15:45 88 166/93 H 01/04/25 15:30 89 171/96 H 01/04/25 15:15 87 173/92 H 01/04/25 15:00 87 167/96 H 01/04/25 14:45 87 167/99 H Intake/Output Intake/Output: Intake & Output 01/02/25 01/03/25 01/04/25 01/05/25 23:59 23:59 23:59 23:59 Intake Total 490.5 778 2380 700 Output Total 1900 1500 Balance -1409.5 778 880 700 Meds/Results Medications: Active Medications Generic Name Dose Route Start Trade Name Freq PRN Reason Stop Hydrocodone Bitart/Acetaminophen 1 tab 01/03/25 13:28 Hydrocodone/Acetaminophen (*Crx) 5-325 Mg Tablet PO Q6H PRN Pain Rated 4-6 Amlodipine Besylate 10 mg 01/01/25 17:40 Amlodipine Besylate 10 Mg Tablet PO DAILY [facility] Carvedilol 12.5 mg 01/01/25 21:00 Carvedilol 12.5 Mg Tablet PO Q12H [facility] Dextrose 12.5 gm 01/01/25 15:42 Dextrose 50% 25 Gm/50 Ml Syringe IV PUSH PRN PRN Hypoglycemia Protocol Diphenhydramine HCl 25 mg 01/01/25 15:46 Diphenhydramine Hcl Inj 50 Mg/Ml Vial IV PUSH Q6HR PRN Vomiting Epoetin Live-epbx 10,000 units 01/04/25 18:16 Epoetin Live-Epbx 10,000 Units/Ml Vial IV PUSH 01/04/25 18:17 ONCE ONE Gabapentin 100 mg 01/01/25 22:00 Gabapentin 100 Mg Capsule PO Q8HR [facility] Glucagon 1 mg 01/01/25 15:42 Glucagon For Inj 1 Mg Vial IM PRN PRN Hypoglycemia Protocol Glucose 15 gm 01/01/25 15:42 Glucose Oral Gel 15 Gm Of Glucse In 37.5 Gm Tube PO PRN PRN Hypoglycemia Protocol Heparin Sodium (Beef Lung) 50 units 01/02/25 09:00 Heparin Flush 50 Units/5 Ml Syringe IV PUSH QAM JAYME Heparin Sodium (Beef Lung) 50 units 01/01/25 13:14 Heparin Flush 50 Units/5 Ml Syringe IV PUSH PRN PRN after intermittent infusion Heparin Sodium (Beef Lung) 50 units 01/01/25 13:14 Heparin Flush 50 Units/5 Ml Syringe IV PUSH PRN PRN after blood draws Heparin Sodium (Porcine) 500 units 01/01/25 13:14 Heparin Sodium Lock Flush 500 Units/5 Ml Syringe IV PUSH PRN PRN see comments below Hydromorphone HCl 0.5 mg 01/03/25 11:03 Hydromorphone Hcl Inj (*Crx) 1 Mg/Ml Syr IV PUSH Q3H PRN Pain Rated 7-10 Dextrose 1,000 mls @ 100 mls/hr 01/01/25 15:42 Dextrose 5% 1,000 Ml IVPB PRN PRN Hypoglycemia Protocol Albumin Human 50 mls @ 999 mls/hr 01/04/25 06:16 Albutein IVPB 02/03/25 06:15 Q10M PRN HYPOTENSION Insulin Aspart 2 - 5 units 01/03/25 17:00 Insulin Aspart (*Bkc) 100 Units/Ml SUB-Q TIDWM [facility] Protocol Insulin Human NPH 12 units 01/04/25 06:30 Insulin Human Nph (*Bkc) 100 Units/Ml SUB-Q DAILY@0630 [facility] Insulin Human NPH 8 units 01/03/25 21:00 Insulin Human Nph (*Bkc) 100 Units/Ml SUB-Q HS [facility] Isosorbide Mononitrate 30 mg 01/04/25 15:40 Isosorbide Mononitrate 30 Mg Tab.Er.24h PO QAM [facility] Labetalol HCl 20 mg 01/01/25 17:40 Labetalol Hcl Inj 100 Mg/20 Ml Vial IV PUSH Q6HR PRN Blood Pressure - High Losartan Potassium 25 mg 01/02/25 09:00 Losartan Potassium 25 Mg Tablet PO DAILY [facility] Metoprolol Succinate 200 mg 01/02/25 09:00 Metoprolol Succinate Ext Rel 100 Mg Tabcr PO DAILY [facility] Pantoprazole Sodium 40 mg 01/02/25 09:00 Pantoprazole 40 Mg Tablet PO QAM [facility] Prochlorperazine Edisylate 10 mg 01/01/25 15:46 Prochlorperazine Edisylate 10 Mg/2 Ml Vial IV PUSH Q6H PRN Nausea And Vomiting Sodium Chloride 10 ml 01/01/25 14:00 Central Line Flush IV PUSH Q8HR [facility] Radiology Results: ITS Impressions Chest X-Ray 01/01/25 12:30 Impression: No acute cardiopulmonary abnormality. Chest/Abdomen/Pelvis CTA 01/02/25 08:21 IMPRESSION: CHEST- 1. Left lower lobe atelectasis, aspiration, and/or airspace disease. Improving but persists. 2. Patulous esophagus with wall thickening. Consider endoscopy. 3. Small mediastinal nodes persist. 4. No other acute abnormality. ABDOMEN/PELVIS- 1. Right kidney mass not excluded. Recommend ultrasound and/or MRI. 2. Small scattered nonspecific lymph nodes. Recommend surveillance. 3. No other acute abnormality. Abdomen X-Ray 01/03/25 20:54 IMPRESSION: 1. There is small amount of residual oral contrast material in the distal colon. No dilated loops of gas-filled bowel to suggest obstruction. Renal Ultrasound 01/04/25 18:08 IMPRESSION: 1. Bilateral renal cysts including a 1.6 cm cyst at the lower pole the right kidney which appear to correspond in size and location to the soft tissue density lesion on prior CT consistent with a proteinaceous/hemorrhagic cyst. 2. Bilateral diffuse increased renal cortical echogenicity consistent with medical renal disease. Labs Labs: Laboratory Tests 01/05/25 06:13 01/05/25 06:13 Calcium 8.0 L Phosphorus 3.8 Magnesium 2.0 Total Bilirubin 0.1 L AST 27 ALT 25 Alkaline Phosphatase 121 Total Protein 6.4 Albumin 3.2 L Microbiology 01/02/25 06:02 Blood Blood Culture - Preliminary 01/02/25 06:04 Blood Blood Culture - Preliminary 01/01/25 19:33 Urine Catheterized - Preliminary
[2025-01-05 12:00] VITALS: PULSE 82
[2025-01-05] MEDS: INSULIN ASPART (*BKC) 100 UNITS/ML SUB-Q (12:16)
--- NOTE | 2025-01-05 12:39 | PM.DS ---
DS: Admitting Diagnosis Discharge Date 01/05/2025 Admitting Diagnosis Cyclical vomiting and malaise DS: Discharge Diagnosis Discharge Diagnosis (1) DKA (diabetic ketoacidosis): Qualifiers: Diabetes mellitus complication detail: without coma Diabetes mellitus type: type 1 Qualified Code(s): E10.10 - Type 1 diabetes mellitus with ketoacidosis without coma Code(s): E11.10 - Type 2 diabetes mellitus with ketoacidosis without coma Status: Acute (2) Acute abdominal pain: Code(s): R10.9 - Unspecified abdominal pain Status: Acute DS: Summary Hospital Course Hospital Course: HPI per Admitting provider: 29-year-old female with type 1 diabetes, end-stage renal disease on dialysis presents the hospital with cyclical vomiting. Patient also complains of chest pain belly pain. Patient states that this is not her usual pain from cyclical vomiting. She states that she was surprised when she was told she was in DKA. Chest pain is n not reproducible. She describes abdominal pain as stabbing sharp like and constant. Patient states that she did have diarrhea few days ago but also did a bowel prep for at colonoscopy. She denies fever chills. Lab work in the ED shows hemoglobin 11.1 which is baseline, VBG 7.27, pCO2 35, PO2 46, bicarb 16, on room air sodium 132, chloride 97, carbon dioxide 17, anion gap 18, BUN 24, creatinine 7.72 glucose 433, calcium 7.2, beta hydroxybutyrate 5.6, chest x-ray with no acute findings. UA pending. EKG shows sinus rhythm with prolonged QT interval. Insulin drip ordered with antiemetics, and 1 L normal saline. Patient will be admitted to the ICU for DKA. Patient was managed for DKA in the ICU and and eventually transitioned to her home insulin regimen. Vomiting resolved. However she complained of abd pain and has been on IV Dilaudid. Discussed with Nephrology who noted that he received information patient has a pattern of drug seeking behaviour and has been declined admission to hospital in her vicinity which prompted her to present to our facility. Also while here she has been insisted on IV dilaudid. Patient was counseled today and discharged to [place] 5/325mg [address] AP showed rihgt renal mass, US renal showed bilateral cysts and no CVA tenderness. No evidence for abd pain from imaging, however amado was discharged on Protonix and norco as noted above. Patient will continue her home insulin regimen, due to elevated Blood pressure Isosorbide mononitrate 30mg which controlled her BP. Nephrology was consulted and patient was on dialysis while admitted Continue other home meds F/u with PCP in 3-5 day, F/u with Nephrology as instructed Time Spent with Patient Time attestation: Total time spent providing and/or coordinating discharge services: DS: Data Data Completed and Pending Labs on day of discharge: Labs from last 24 hours 01/05/25 01/05/25 01/05/25 11:27 07:22 06:22 WBC RBC Hgb Hct MCV MCH MCHC RDW Plt Count MPV Immature Gran % (Auto) Neut % (Auto) Lymph % (Auto) [place] % (Auto) Eos % (Auto) Baso % (Auto) Lymph # (Auto) [place] # (Auto) Eos # (Auto) Baso # (Auto) Abs Immat Gran (auto) Absolute Neuts (auto) Absolute Nucleated RBC Nucleated RBC % Sodium Potassium Chloride Carbon Dioxide Anion Gap BUN Creatinine Estim Creat Clear Calc Estimated GFR Glucose POC Capillary Glucose 304 H 137 H 93 Calcium Phosphorus Magnesium Total Bilirubin AST ALT Alkaline Phosphatase Total Protein Albumin Renin Activity Aldosterone Aldosterone/Renin Ratio 01/05/25 01/05/25 01/05/25 06:13 06:13 04:37 WBC 6.2 RBC 3.04 L Hgb 8.4 L Hct 28.0 L MCV 92.1 MCH 27.6 MCHC 30.0 L RDW 14.8 H Plt Count 207 MPV 10.9 H Immature Gran % (Auto) 0.3 Neut % (Auto) 49.4 Lymph % (Auto) 36.0 [place] % (Auto) 12.0 H Eos % (Auto) 2.1 Baso % (Auto) 0.2 Lymph # (Auto) 2.22 [place] # (Auto) 0.7 H Eos # (Auto) 0.1 Baso # (Auto) 0.0 Abs Immat Gran (auto) 0.02 Absolute Neuts (auto) 3.1 Absolute Nucleated RBC 0.000 Nucleated RBC % 0.0 Sodium 136 L Potassium 3.7 Chloride 101 Carbon Dioxide 33 H Anion Gap 2 L BUN 9 D Creatinine 4.16 H Estim Creat Clear Calc 16 Estimated GFR 13 L Glucose 93 POC Capillary Glucose 91 Calcium 8.0 L Phosphorus 3.8 Magnesium 2.0 Total Bilirubin 0.1 L AST 27 ALT 25 Alkaline Phosphatase 121 Total Protein 6.4 Albumin 3.2 L Renin Activity Pending Pending Aldosterone Pending Aldosterone/Renin Ratio Pending 01/05/25 01/05/25 01/04/25 03:51 03:28 19:21 WBC RBC Hgb Hct MCV MCH MCHC RDW Plt Count MPV Immature Gran % (Auto) Neut % (Auto) Lymph % (Auto) [place] % (Auto) Eos % (Auto) Baso % (Auto) Lymph # (Auto) [place] # (Auto) Eos # (Auto) Baso # (Auto) Abs Immat Gran (auto) Absolute Neuts (auto) Absolute Nucleated RBC Nucleated RBC % Sodium Potassium Chloride Carbon Dioxide Anion Gap BUN Creatinine Estim Creat Clear Calc Estimated GFR Glucose POC Capillary Glucose 47 L* 62 L 82 Calcium Phosphorus Magnesium Total Bilirubin AST ALT Alkaline Phosphatase Total Protein Albumin Renin Activity Aldosterone Aldosterone/Renin Ratio 01/04/25 17:06 WBC RBC Hgb Hct MCV MCH MCHC RDW Plt Count MPV Immature Gran % (Auto) Neut % (Auto) Lymph % (Auto) [place] % (Auto) Eos % (Auto) Baso % (Auto) Lymph # (Auto) [place] # (Auto) Eos # (Auto) Baso # (Auto) Abs Immat Gran (auto) Absolute Neuts (auto) Absolute Nucleated RBC Nucleated RBC % Sodium Potassium Chloride Carbon Dioxide Anion Gap BUN Creatinine Estim Creat Clear Calc Estimated GFR Glucose POC Capillary Glucose 103 Calcium Phosphorus Magnesium Total Bilirubin AST ALT Alkaline Phosphatase Total Protein Albumin Renin Activity Aldosterone Aldosterone/Renin Ratio Preliminary micro results at discharge 01/01/25 19:33 - Preliminary Urine Catheterized 01/02/25 06:02 Blood Culture - Preliminary Blood 01/02/25 06:04 Blood Culture - Preliminary Blood Discharge Plan Discharge Attending physician on discharge: Zach Delcid Consulting providers: Deangelo Romeo; Lisa Franks; Saba Huber Discharging Clinician: Zach Delcid Anticipated Discharge Date/Time: 01/05/25 11:58 Patient Disposition: Home Activity: as tolerated Diet: as tolerated and diabetic Patient Instructions: Antibiotic Form, Isosorbide Mononitrate (By mouth), Pain Management (DC), Diabetic Ketoacidosis (DC), End Stage Kidney Disease (DC), Diabetes Type 1: Management (DC) Patient Language: Yakut Stand Alone Forms: General Discharge Information Follow-up/Referrals: Lisa Franks MD [Physician, Nephrology] Referral Note: F/u with Nephrology as instructed Luis Carlos,Edgardo Mak MD [Primary Care Provider, Unknown] Referral Note: F?u with PCP in 3-5 days Discharge Medications: New hydrocodone-acetaminophen 5-325 mg Tablet 1 tablet PO Q6H PRN (Reason: Pain Rated 4-6) 5 Days Qty: 8 0RF isosorbide mononitrate 30 mg Tablet Extended Release 24 Hr 30 mg PO QAM 30 Days Qty: 30 1RF pantoprazole 40 mg Tablet,Delayed Release (Dr/Ec) 40 mg PO QAM 30 Days Qty: 30 0RF ondansetron 4 mg tablet,disintegrating 4 mg PO Q8H PRN (Reason: nausea and vomiting) Qty: 14 0RF Continued insulin glargine [Lantus Solostar U-100 Insulin] 100 unit/mL (3 mL) insulin pen 15 unit SUBCUT HS losartan 25 mg tablet 25 mg PO DAILY insulin lispro 100 unit/mL insulin pen 1 sliding scale dose SUBCUT PRN ondansetron 4 mg tablet,disintegrating 4 mg PO Q4H PRN (Reason: Nausea And Vomiting) Rx Instructions: 1st dose 1-2 hr before radiation carvedilol 12.5 mg tablet 12.5 mg PO Q12H amlodipine 10 mg tablet 10 mg PO DAILY diphenhydramine HCl [Banophen] 25 mg capsule 25 mg PO Q8H PRN (Reason: nausea and vomiting) escitalopram oxalate 10 mg tablet 10 mg PO DAILY gabapentin 100 mg capsule 100 mg PO TID Gvoke HypoPen 2-Pack 0.5 mg/0.1 mL auto-injector 0.5 mg SUBCUT PRN PRN (Reason: hypoglycemia) metoprolol succinate 200 mg tablet extended release 24 hr 200 mg PO DAILY Date of admission: 01/01/25 15:33 Primary Care Provider: Luis Carlos,Edgardo Mak Admitting Provider: Jaciel Haley Attending physician on admission: Jaciel Haley Condition: Serious
[2025-01-05] MEDS: HEPARIN SODIUM LOCK FLUSH 500 UNITS/5 ML SYRINGE IV PUSH (12:59)
--- NOTE | 2025-01-08 15:06 | PCCDE ---
01/08/25: Courtesy DM educator message left including call back number.
[2025-01-09 11:09] LABS: Renin Activity, Plasma 0.349 ng/mL/hr (0.167-5.380); Renin Activity, Plasma 0.400 ng/mL/hr (0.167-5.380)
== END 2025-01-05 13:25 | disposition home or self-care (01) | DRG 637 ==
LOC: ANHED 13:09 → ANHICU 16:30 → ANH3MEDSUR 01-03 06:53 → ANHICU 01-08 11:01
PROVIDERS: Internal Medicine; Internal Medicine Nephrology; Nurse Practitioner Gerontology; Student in an Organized Health Care Education/Training Program; Admitting Provider Family Medicine; Emergency Provider Nurse Practitioner Family; PCP Family Medicine; Visit Provider Internal Medicine
DX: E10.10 Type 1 diabetes mellitus with ketoacidosis without coma (principal); N18.6 End stage renal disease; I12.0 Hypertensive chronic kidney disease with stage 5 chronic kidney disease or end stage renal disease; E83.51 Hypocalcemia; E10.43 Type 1 diabetes mellitus with diabetic autonomic (poly)neuropathy; E10.22 Type 1 diabetes mellitus with diabetic chronic kidney disease; K31.84 Gastroparesis; Z99.2 Dependence on renal dialysis; Z79.4 Long term (current) use of insulin; Z90.49 Acquired absence of other specified parts of digestive tract; Z76.5 Malingerer [conscious simulation]
CPT/HCPCS: 36415; 71046; 71275; 74018; 74174; 76770; 80048; 80053; 81001; 81025; 82010; 82088; 82803; 82948; 83036; 83605; 83690; 83735; 84100; 84244; 84484; 85025; 85027; 85610; 85730; 86706; 87040; 87086; 87186; 87340; 87641; 93005; 96372; 96374; 96375; 99285; A9270; G0257; J0613; J0696; J0780; J1171; J1200; J1642; J1644; J1815; J2270; J2405; J3480; J7030; Q5105; Q9967

== ENCOUNTER 2025-01-29 14:14 | Inpatient (IN) | payer MEDICARE, MEDICAID, SELFPAY ==
[2025-01-29] VITALS (22 sets, daily range): BP systolic 134–194; BP diastolic 65–106; PULSE 89–116; RESP 14–26; TEMP 36.7–37; O2SAT 93–100; BMI 26.2
--- NOTE | ~2025-01-29 | CT_ITS ---
EXAMINATION: CT chest abdomen pelvis wo con DATE: 02/04/2025 13:13 INDICATION: Chest pain. Abdominal pain. TECHNIQUE: Computed tomography (CT) of the chest, abdomen, and pelvis was performed without intravenous contrast. Automated exposure control and iterative reconstruction technique were employed. The dose-length product was 422.90 mGy-cm. COMPARISON: CT 01/01/2025, kidney ultrasound 01/04/2025 FINDINGS: CHEST CT: The lungs demonstrate mild atelectasis. There are airspace and groundglass opacities in left lower lobe with volume loss. No pleural effusion. The heart size is normal. No pericardial effusion. There is material in the esophagus. There is mild mediastinal lymphadenopathy. A real estate representative node measures 11 x 19 mm. There is a left internal jugular port with tip at superior cavoatrial junction. A right internal jugular central venous catheter is seen with tip in the right atrium. ABDOMEN/PELVIS CT: The liver is normal. There are changes of cholecystectomy. There is a gastrojejunostomy tube in expected position. The spleen, pancreas, and adrenal glands are normal. There is a 1.7 cm hemorrhagic cyst in right kidney. There are no dilated loops of bowel. The appendix is normal. There is physiologic fluid in the pelvis. Vascular calcifications are noted. There is mild right external iliac, left common iliac, and aortocaval lymphadenopathy. There are electrodes in the stomach. There is a chronic compression fracture of L3. IMPRESSION: 1. Persistent airspace and groundglass opacities in left lung lower lobe with volume loss, consistent with pneumonia versus atelectasis/scarring. 2. Mild mediastinal, retroperitoneal, and pelvic lymphadenopathy, likely reactive. Reviewed, dictated and finalized at location E. IMPRESSION: 1. Persistent airspace and groundglass opacities in left lung lower lobe with v olume loss, consistent with pneumonia versus atelectasis/scarring. 2. Mild mediastinal, retroperitoneal, and pelvic lymphadenopathy, likely reacti ve.
--- NOTE | ~2025-01-29 | XR_ITS ---
XR chest 1V portable INDICATION:CHF . REFERENCE: None FINDINGS: A single AP of the chest demonstrates normal heart size. The lungs are clear. There is no evidence of pneumothorax or pleural effusion. Right dialysis catheter and left Port-A-Cath are in place. IMPRESSION: No acute pulmonary findings. Reviewed, dictated and finalized at location S.
--- NOTE | ~2025-01-29 | XR_ITS ---
EXAMINATION: XR chest 1V portable COMPARISON: No comparisons available. HISTORY: SOB FINDINGS: Mild pulmonary venous congestion. No pneumothorax. Mild cardiomegaly. Mediastinal and hilar contours are within normal limits. Bony thorax no acute abnormality. Miscellaneous: Right central line in the SVC, left central line in the SVC. Impression: CHF Reviewed, dictated and finalized at location P. Impression: CHF
--- NOTE | ~2025-01-29 | XR_ITS ---
EXAMINATION: XR chest 2V, 01/29/2025 15:30 CDT HISTORY: CP COMPARISON: No comparisons available. Technique: 2 views obtained. Findings: The lungs are clear, no effusion. No pneumothorax. Heart is normal size. Mediastinal and hilar contours are within normal limits. Bony thorax no acute abnormality. Right central line in the SVC, left central line in the SVC Impression: No acute cardiopulmonary abnormality. Reviewed, dictated and finalized at location P. Impression: No acute cardiopulmonary abnormality.
--- NOTE | 2025-01-29 14:17 | ECG_ITS ---
Test Date: 2025-01-29 14:34:09 Measurements Intervals [place] Rate: 101 P: 52 OK: 132 QRS: 3 QRSD: 97 T: 56 QT: 369 QTc: 480 Interpretive Statements SINUS TACHYCARDIA INCOMPLETE RIGHT BUNDLE BRANCH BLOCK PROLONGED QT INTERVAL BASELINE ARTIFACT- I, II, III, AVR, AVL, AVF, V1-V6 Compared to ECG 01/01/2025 16:06:48 NO SIGNIFICANT CHANGE Electronically Signed On 01-29-2025 15:37:50 CDT by Davy Torres D.O.
--- OUTSIDE RECORDS SUMMARY | 2025-01-29 15:18 | XMS_ITS | Clinical Summary ---
Author Organization [facility] Address [address] [place] [address] Phone Care Team Providers Care Photogravure Press Operator Name Role Phone Eun Camacho Primary [...] 6.0 - 8.3 g/dL 09/04/2022 9:[address] [facility] ALBUMIN 3.9 3.5 - 5.2 g/dL 09/04/2022 9:[address] [facility] Comment: The colormetric methods used for the determination of Albumin may lead to falsely elevated test results in patients suffering from renal failure or insufficiency due to interference with other proteins. A/G RATIO 0.8(L) 1.0 - 2.0 09/04/2022 9:18 AM CDT [facility] CALCIUM 9.7 8.9 - 10.3 mg/dL 09/04/2022 9:[address] [facility] T BILI 0.3 <=1.2 mg/dL 09/04/2022 9:[address] [facility] SGOT (AST) 11 <=32 U/L 09/04/2022 9:[address] [facility] SGPT (ALT) 18 <=41 U/L 09/04/2022 9:[address] [facility] ALKALINE PHOSPHATASE 196(H) 35 - 105 U/L 09/04/2022 9:[address] [facility] GFR, ESTIMATED 22(L) >=60 09/04/2022 9:[address] [facility] Comment: Creatinine Clearance is the preferred criteria for selecting drug dose adjustments in renally impaired patients. The GFR is provided as additional pertinent clinical information. GFR is reported in mL/min/1.73 sq m. Calculation based on the Chronic Kidney Disease Epidemiology Collaboration (CKD- EPI) equation refit without adjustment for race. GFR, EST. 23(L) >=60 023 9:[address] [facility] GFR, EST. NONAFRICAN 19(L) >=60 09/04/2022 9:[address] [facility] Blood Venipuncture / Unknown 09/04/2022 8:08 AM CDT 09/04/2022 8:39 AM CDT us Giovanni Faith DO CHEMISTRY ORDERABLES Fi nal Result Performing Organization Address City/[facility]/ZIP Co de Phone Number [facility] [place] [address] * (ABNORMAL) Hemoglobin A1C (08/23/2022 9:39 PM [...] 9.0 POORLY-CONTROLLED: >9.0 us Celia Samuels APRN, GEOSCIENCE PROFESSOR CHEMISTRY ORDERABLES Final Result Performing Organization Address [facility] Co de Phone Number [facility] [place] [address] from Last 3 Months or Most Recently [...] measures to stabilize the patient. Care Teams Photogravure Press Operator Relationship Specialty Start Date End Date Eun Camacho PAC [address] [place] [address] [place] [phone] PCP - General Family Medicine 06/28/22
--- OUTSIDE RECORDS SUMMARY | 2025-01-29 15:18 | XMS_ITS ---
Author Organization [facility] Address [address] [place] [address] Phone Care Team Providers Care Casino Gaming Inspector Name Role Phone Eun Camacho Primary Care Provider Lindsey Chronic Condition Monitoring Status:Enrolled (Active) Start date:03/08/2024 Enrollment date:03/08/2024 Related social drivers of health:Intimate Partner Violence, Social Connections, Financial Resource Strain, Depression, Stress, Physical Activity, Food Insecurity, Transportation Needs, Housing Stability, Utilities Continued Care and Services Coordination
--- OUTSIDE RECORDS SUMMARY | 2025-01-29 15:18 | XMS_ITS | Encounter Summary ---
Author Organization [facility] Address [address] [address] Phone Care Team Providers Care Music Video Producer Name Role Phone Lay Villalta MD Primary Care Provider [phone] Eun Camacho Primary Care Provider [phone] Encounter Details Date Type Department Care Team (Late st Contact Info) Description 07/30/[address] [facility] Med Surg [address] [phone] Kyleigh Thornton, RN [place] Social History Tobacco [...] on filedocumented in this encounter Care Teams Music Video Producer Relationship Specialty Start Date End Date Lay Villalta MD [address] [place] [address] [place] [phone] PCP - General Family Medicine 07/10/21 06/27/22 Eun Camacho PAC [address] [place] [address] [place] [phone] PCP - General Family Medicine 06/28/22 documented as of this encounter
--- OUTSIDE RECORDS SUMMARY | 2025-01-29 15:18 | XMS_ITS | Encounter Summary ---
Author Organization [facility] Address [address] [place] [address] Care Team Providers Care Video Control Engineer Name Role Phone Lay Villalta MD Primary Care Provider [phone] Edgardo Aldridge MD Primary Care Provider [phone] Encounter Details Date Type Department Care Team (Late st Contact Info) Description 07/17/2019 Lab Requisition [facility] [address] [place] [address] Unknown, Provider Social History Tobacco Use Types Packs/Day Years Used Date Smoking Tobacco: Never Smokeless Tobacco: Never Alcohol Use Standard Drinks/Week Comments No 0 (1 standard drink = 0.6 oz pur e alcohol) Comments Unknown Sex and Gender Information Value Date Recorded Sex Assigned at Not on file Legal Sex Female 5:44 AM FIRE DEPARTMENT BATTALION 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 Gender Identity Not on file Sexual Orientation Not on file 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 Not on file [...] Entry Date Author No 06/08/2018 6:53 AM Gilbetr Guadalupe RN documented in this encounter Plan of Treatment Not on file documented as of this encounter Procedures Procedure Name Priority Date/Time Associated Diagnosis Comments SARS-COV-2 (COVID-19) IN HOUSE Routine 07/16/2019 3:17 PM CDT documented in this encounter Results * SARS-COV-2 (COVID-19) IN HOUSE (07/16/2019 3:17 PM CDT) COVID-19 PCR Not detected Not detected, Invalid 07/17/2019 11:51 PM CDT [facility] Microbiology SPECIMEN FROM NASOPHARYNGEAL STRUCTURE / Unknown Collection / Unknown 07/16/2019 3:17 PM CDT 07/17/2019 11:09 AM CDT Narrative [facility] - 07/17/2019 11:51 PM CDT This Real Time RT-PCR assay was developed and its performance characteristics determined by [facility]. This test has been [...] LAB - MICROBIOLOGY ORDERABLES F inal Result [facility] [address] [place] [address], [facility] [phone] documented in this encounter Visit Diagnoses Not on filedocumented in this encounter Care Teams Video Control Engineer Relationship Specialty Start Date End Date Lay Villalta MD [address] [place] [phone] PCP - General Family Medicine 07/07/15 12/27/23 Edgardo Aldridge MD [address] [place] [id number] PCP - General Family Medicine 12/28/23 documented as of this encounter
--- OUTSIDE RECORDS SUMMARY | 2025-01-29 15:18 | XMS_ITS | Encounter Summary ---
Author Organization [facility] Address [facility] [place] [address] Care Team Providers Care Park Landscape Architect Name Role Phone Lay Cota MD Primary Care Provider [phone] Eun Camacho Primary Care Provider [phone] None, Provider Primary Care Provider [facility] Lay Cota MD Primary Care Provider [phone] Edgardo Aldridge MD Primary Care Provider [phone] Keely Ugalde ORACLE FINANCIAL APPLICATION DEVELOPER Unavailable [phone] Keely Ugalde ORACLE FINANCIAL APPLICATION DEVELOPER Unavailable [phone] Odilon Tellez MD Unavailable [phone] Leonardo Washburn MD Unavailable [phone] Young Vasquez MD Unavailable [phone] Andrei Chaves MD Unavailable [phone] Encounter Details Date Type Department Care Team (Late st Contact Info) Description 01/03/2020 Telephone [facility] [address] [place] [address] Re Yeager CNA Social History Tobacco Use Types Packs/Day Years Used Date Smoking Tobacco: Never Smokeless Tobacco: Never Alcohol Use Standard Drinks/Week Comments Yes 0 (1 standard drink = 0.6 oz pur e alcohol) occasionally AUDIT-C Answer Date Recorded Frequency of Alcohol Consumption Never 11/16/2018 Average Number of Drinks Not on file 019 Frequency of Binge Drinking Not on file 10/19 PHQ-2 Answer Date Recorded PHQ-2 Score - If the patient scores above 3, please move on to questions 3-9 0 11/16/2019 Comments No Sex and Gender Information Value Date Recorded Sex Assigned at Female 11/16/2019 8:56 AM CDT Legal Sex Female 5:15 PM CDT Gender Identity Female 11/16/2019 8:56 AM CDT Sexual Orientation Straight 11/16/2019 8: 56 AM CDT COVID-19 Exposure Response Date Recorded In the last month, have you been in contact with someone who was confirmed or suspected to have Coronavirus / COVID-19? No / Unsure 01/05/2020 1:01 PM CDT documented as of this encounter Functional Status * RETIRED Are you deaf or do you have serious difficulty hearing Answer Date of Assessment Author Status No 12/31/2019 10:45 AM CDT Acti ve * RETIRED Are you blind or do you have serious difficulty seeing, even when wearing glasses? Answer Date of Assessment Author Status No 12/31/2019 10:45 AM CDT Acti ve * Do you have serious difficulty walking or climbing stairs? Answer Date of Assessment Author Status No 12/31/2019 10:45 AM CDT Vidya Bautista RN Active * Do you have difficulty dressing or bathing? Answer Date of Assessment Author Status No 12/31/2019 10:45 AM CDT Vidya Bautista RN Active * Because of a physical, mental, or emotional condition, do you have difficulty doing errands alone such as visiting a doctor's office or shopping? Answer Date of Assessment Author Status No 12/31/2019 10:45 AM CDT Vidya Bautista RN Active documented as of this encounter Mental Status * Because of a physical, mental, or emotional condition, do you have serious difficulty concentrating, remembering, or making decisions? Answer Entry Date Author Status No 12/31/2019 10:45 AM CDT Vidya Bautista RN Active documented in this encounter Plan of Treatment Upcoming Encounters Date Type Department Care Team (Late st Contact Info) Description 05/24/2025 10:20 AM ROLLER STRUCTURAL MILL Office Visit [facility] [address] [place] [address] Leonardo Washburn MD [address] [place] [address] documented as of this encounter Goals Goal Patient Goal Type Associated Problems Recent Progress Patient-Stated? Author HOME TO INDEPENDENT [facility]IV[facility]. General No Chiquis Alicia RN documented as of this encounter Visit Diagnoses Not on filedocumented in this encounter Additional Health Concerns Infection Onset Date Last Indicated Resolved Time MRSA Comment:First MRSA negative 09/28/2022 (and 09/29/22-which is not 72 hours apart), 2nd MRSA negative on 10/16/22 (JJ) 01/19/2020 01/23/2020 10/19/2022 8:10 AM CDT COVID-19 Rule Out 10/24/2022 10/24/2022 10/25/2022 7:31 AM CDT COVID-19 Rule Out 01/06/2023 01/06/2023 01/06/2023 4:51 PM CDT COVID-19 Rule Out 02/21/2023 02/21/2023 02/21/2023 11:06 AM ROLLER STRUCTURAL MILL MRSA Comment:04/27/23 +MRSA Urine 10/23/23 +MRSA from [facility]. Added from external infection. Source: [facility]. 02/09/24 +MRSA Nares from [facility]. 05/08/24 +MRSA Nares 10/23/2023 12/04/2024 COVID-19 Rule Out 03/12/2024 03/12/2024 03/12/2024 3:51 PM ROLLER STRUCT[employer] MILL COVID-19 Rule Out 04/04/2024 04/04/2024 04/04/2024 5:10 PM ROLLER STRUCT[employer] MILL COVID-19 Rule Out 04/24/2024 04/24/2024 04/24/2024 8:24 PM ROLLER STRUCTURAL MILL RSV 04/24/2024 04/24/2024 05/04/2024 12:3 2 AM ROLLER STRU[employer]URAL MILL COVID-19 Rule Out 05/08/2024 05/08/2024 05/08/2024 4:15 PM [employer]LLER STRU[employer] MILL Tuberculosis Rule-Out 05/09/2024 05/09/20242024 10:09 AM ROLLER STRU[employer] MILL COVID-19 Rule Out 05/17/2024 05/17/2024 05/17/2024 4:44 PM ROLLER STRU[employer] MILL Respiratory Rule Out 07/05/2024 07/05/2024 025 10:03 AM CDT Respiratory Rule Out 08/11/2024 08/11/2024 025 5:18 PM CDT VRE Comment:08/20/24 +VRE Perirectal abscess 09/23/24 +VRE Perirectal wound 08/20/2024 09/23/2024 Respiratory Rule Out 09/18/2024 09/18/2024 025 7:41 AM CDT Respiratory Rule Out 09/18/2024 09/18/2024 025 8:23 AM CDT 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 +CRE perirectal wound 09/23/2024 09/23/2024 Tuberculosis Rule-Out 11/21/2024 11/21/20242024 12:48 PM CDT Respiratory Rule Out 11/23/2024 11/23/2024 025 1:39 PM CDT COVID-19 Rule Out 12/17/2024 12/17/2024 12/17/2024 6:37 PM CDT Respiratory Rule Out 12/17/2024 12/17/2024 025 6:38 PM CDT documented as of this encounter Care Teams Park Landscape Architect Relationship Specialty Start Date End Date Lay Cota MD PCP - General FAMILY PRACTICE 02/19/19 10/26/22 Eun Camacho PA PCP - General PHYSICIAN DEMONSTRATOR SALES 10/27/22 11/18/22 None, Simona, PCP - General UNKNOWN PHYSICIAN SPECIALTY 11/19/22 12/09/22 Lay Cota MD PCP - General FAMILY PRACTICE 12/10/22 07/02/24 Edgardo Aldridge MD [address] [facility] [address] [place] [address] PCP - General FAMILY PRACTICE 07/03/24 Keely Ugalde APRN [address] [place] [address] PCP - Hospice Attending 10/06/24 Keely Ugalde APRN [address] [place] [address] Nurse Practitioner PALLIATIVE CARE 10/09/24 Odilon Tellez MD [address] [address] Consulting Physician NEPHROLOGY 11/17/24 Leonardo Washburn MD [address] [address] Consulting Physician Internal Medicine Pulmonary Disease 11/17/24 Young Vasquez MD [address] [facility] [address] [place] [address] GASTROENTEROLOGY 11/17/24 Andrei Chaves MD [address] [facility] [address] [place] [address] SURGERY 11/17/24 documented as of this encounter
--- OUTSIDE RECORDS SUMMARY | 2025-01-29 15:18 | XMS_ITS | Patient Health Record ---
Author Organization [facility] Address [address] [facility] [address] [place] [address] Care Team Providers Care Maintenance Shop Laborer Name Role Phone Daxa Hill Unavailable [phone] Reason For Referral No Information Plan Of Treatment No Information
--- OUTSIDE RECORDS SUMMARY | 2025-01-29 15:19 | XMS_ITS | Clinical Summary ---
Author Organization [facility] Address [address] [place] [address] Phone Care Team Providers Care Rn Endocrinology Name Role Phone Unavailable Primary Care Provider [...] now. 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 Need back on insulin pump [...] long acting insulin with SSI F/u with cullet trucker Last Assessment & Plan: -Brittle DM1 -Home [...] (PF) 02/14/2021 MMR 12/03/2000,10/12/1996 PPD Test 05/22/2016 Osurv COVID-19 Vaccine 01/24/2021 Poliovirus Trivalent Vaccine , [...] PM CDT Legal Sex Female 12:26 PM SENIOR ENGINEERING MANAGER Gender Identity Female 11/05/2020 3:34 PM CDT Sexual Orientation Straight 11/05/2020 3: 34 PM CDT Last Filed Vital Signs Vital Sign Reading Time Taken Comments Blood Pressure 138/78 06/24/2022 7:47 PM SENIOR ENGINEERING MANAGER Pulse 95 06/24/2022 7:47 PM SENIOR ENGINEERING MANAGER Temperature 37 C (98.6 F) 06/24/2022 6:25 PM SENIOR ENGINEERING MANAGER Respiratory Rate 22 06/24/2022 7:47 PM SENIOR ENGINEERING MANAGER Oxygen Saturation 100% 06/24/2022 7:47 PM SENIOR ENGINEERING MANAGER Inhaled Oxygen Concentration - - Weight 54.4 kg (120 lb) 06/24/2022 4:51 PM SENIOR ENGINEERING MANAGER Height 162.6 cm (5' 4) 12/03/2021 10:40 [...] COMPREHENSIVE METABOLIC PANEL STAT 06/24/2022 5:05 PM SENIOR ENGINEERING MANAGER MICROALBUMIN/CREATININ E URINE RANDOM Routine 02/12/2021 3:35 PM CDT Type 1 diabetes mellitus with diabetic neuropathy (HCC ) HEMOGLOBIN A1C Routine 01/16/2021 3:32 AM CDT HEPATITIS PANEL, ACUTE STAT 8:38 PM CDT from Last 3 Months or Most Recently Relevant to Health Maintenance Results * (ABNORMAL) Comprehensive metabolic panel (06/24/2022 5:05 PM SENIOR ENGINEERING MANAGER) Sodium 139 135 - 145 mmol/L 06/24/2022 5:38 PM SENIOR ENGINEERING MANAGER [facility] Potassium 4.4 3.5 - 5.0 mmol/L 06/24/2022 5:38 PM [facility] Chloride 108(H) 98 - 107 mmol/L 06/24/2022 5:38 PM [facility] Carbon Dioxide 23 21 - 32 mmol/L 06/24/2022 5:38 PM [facility] Anion Gap 8 6 - 16 mmol/L 06/24/2022 5:38 PM [facility] Glucose 421(HH) 70 - 110 mg/dL 06/24/2022 5:38 PM [facility] BUN 33(H) 7 - 18 mg/dL 06/24/2022 5:38 PM [facility] Creatinine 2.70(H) 0.60 - 1.30 mg/dL 06/24/2022 5:38 PM [facility] BUN/Creatinine Ratio 12.2 11.7 - 13.9 06/24/2022 5:38 PM [facility] Calcium 8.9 8.5 - 10.1 mg/dL 06/24/2022 5:38 PM [facility] Comment:Calcium measurements are adversely affected by the use of Omniscan during MRI. Analysis of calcium is not recommended for 12 to 24 hours after the use of the contrast agent. Protein total 7.5 6.4 - 8.2 g/dL 06/24/2022 5:38 PM [facility] Albumin 2.8(L) 3.4 - 5.0 g/dL 06/24/2022 5:38 PM [facility] Bilirubin Total 0.2 0.0 - 1.0 mg/dL 06/24/2022 5:38 PM [facility] Comment:Use of this assay is not recommended for patients undergoing treatment with eltrombopag due to the potential for falsely elevated results. AST 39(H) 7 - 34 U/L 06/24/2022 5:38 PM [facility] ALT 77(H) 16 - 62 U/L 06/24/2022 5:38 PM [facility] ALP 224(H) 50 - 136 U/L 06/24/2022 5:38 PM [facility] eGFR non- 21.1(L) >=60.0 mL/min/1.7 3m2 06/24/2022 5:38 PM [facility] eGFR 25.6(L) >=60.0 mL/min/1.7 3m2 06/24/2022 5:38 PM [facility] Comment:The estimated GFR is based on the Modification of Diet in Renal Disease Study (MDRD) equation using average adult body surface area. This equation has not been validated for use with age groups below 18 or over 70, women, patients with serious co-morbid conditions, or persons with extremes of body size, muscle mass or nutritional status. Blood 06/24/2022 5:05 PM SENIOR ENGINEERING MANAGER 06/24/2022 5:05 PM SENIOR ENGINEERING MANAGER us Cony Alexander DO LAB BLOOD ORDERABLES Fin al Result Performing Organization Address City/[facility]/ZIP Co de Phone Number [facility] [address] [address] * (ABNORMAL) Microalbumin/Creatinine Urine (02/12/2021 3:35 PM CDT) Pathologist [facility] Creatinine Urine 10.00 10.00 - 300.00 mg/dL 02/13/2021 11:03 AM CDT [facility] Microalbumin urine 150(H) <=20 mg/L 02/13/2021 11:03 AM CDT [facility] Microalbumin/cre atinine urine >300 mg/g creatinine 02/13/2021 11:03 AM CDT [facility] Urine URINE SPECIMEN / Unknown Collection / Unknown 02/12/2021 3:35 PM CDT 02/12/2021 3:35 PM CDT us Devang Fan DO URINE ORDERABLES Final Re sult [facility] [address] [address] * (ABNORMAL) Hemoglobin A1c (01/16/2021 3:32 AM CDT) Hemoglobin A1c >14.0(H) 4.5 - 6.2 % 01/16/2021 7:05 AM CDT [facility] Blood Venipuncture / Unknown 01/16/2021 3:32 AM CDT 01/16/2021 3:34 AM CDT us Betty Johansen MD LAB BLOOD ORDERABLES Fin al Result [facility] [address] [place] [address] * Hepatitis Panel, Acute (08/10/2020 8:38 PM [...] Unless otherwise indicated, all testing performed at: [facility] [address] [place] [address] [place] Specialist: IZA GILES M.D. [facility]# [id number] Blood Venipuncture / Unknown 08/10/2020 8:38 PM CDT 08/10/2020 8:44 PM CDT us Xin Alejandre MD LAB BLOOD ORDERABLES Final Result [address] [address] from Last 3 Months or Most Recently Relevant to Health Maintenance Insurance MEDICAID [place] Advance Directives For more information, please contact: [phone] (7AM - 5PM [facility], 7 days a week) * Full [...]
--- OUTSIDE RECORDS SUMMARY | 2025-01-29 15:19 | XMS_ITS | Encounter Summary ---
Author Organization [facility] Address [address] [place] [address] Phone Care Team Providers Care Automobile Mechanic Name Role Phone Shown, Devang Alegre DO Primary Care Provider [phone] Encounter Details Date Type Department Care Team (Late st Contact Info) Description 12/03/[address] [facility] [address] [place] [phone] Leslie Pruitt Social History Tobacco Use Types Packs/Day Years Used Date Smoking Tobacco: Never Smokeless Tobacco: Never Alcohol Use Standard Drinks/Week Comments No 0 (1 standard drink = 0.6 oz pur e alcohol) Comments No Sex and Gender Information Value Date Recorded Sex Assigned at Female 11/05/2020 3:34 PM CDT Legal Sex Female 12:26 PM SALES CLERK Gender Identity Female 11/05/2020 3:34 PM CDT [...] d for the patient 03/29/2021 7:04 AM SALES CLERK documented as of this encounter Care Teams Automobile Mechanic Relationship Specialty Start Date End Date Shown, Devang Alegre DO [address] [address] PCP - General Family Medicine 09/11/21 12/06/24 documented as of this encounter
--- OUTSIDE RECORDS SUMMARY | 2025-01-29 15:19 | XMS_ITS | Encounter Summary ---
Author Organization [facility] Address [address] [place] [address] Care Team Providers Care Moving Worker Name Role Phone Edgardo Aldridge MD Primary Care Provider [phone] Keely Ugalde JOINT CREASER Unavailable [phone] Keely Ugalde JOINT CREASER Unavailable [phone] Odilon Tellez MD Unavailable [phone] Leonardo Washburn MD Unavailable [phone] Young Vasquez MD Unavailable [phone] Andrei Chaves MD Unavailable [phone] Encounter Details Date Type Department Care Team (Latest Contact Info) Description 12/13/2024 Results Follow-Up [facility] - [address], [address] [place] [phone] Leonardo Washburn MD [address] [facility] [address] [place] [address] Complete PFT (pre/post Daljit, Lung Vol, Diff Capacity) (34461, 20137, 70014, 76862) Social History Tobacco Use Types Packs/Day Years Used Date Smoking Tobacco: Never Smokeless Tobacco: Never Alcohol Use Standard Drinks/Week Comments Not Currently 0 (1 standard drink = 0.6 oz pur e alcohol) occasionally B1300 Health Literacy Answer Date Recor ded How often do you need to hav e someone help you when you read instructions, pamphlets, or other written material from your doctor or pharmacy? Never 11/23/2024 [facility] Utilities Answer Date Recorded In the past 12 months has th e electric, gas, oil, or water company threatened to shut off services in your home? No 12/10/2024 Humiliation, Afraid, Rape, and Kick questionnair e Answer Date Recorded Within the last year, have y ou been afraid of your partner or ex-partner? No 12/10/2024 Within the last year, have y ou been humiliated or emotionally abused in other ways by your partner or ex-partner? No Within the last year, have y ou been kicked, hit, slapped, or otherwise physically hurt by your partner or ex-partner? No 12/10/2024 Within the last year, have y ou been raped or forced to have any kind of sexual activity by your partner or ex-partner? No 12/10/2024 Social Connection and Isolation Panel Answer Date Recorded In a typical week, how many times do you talk on the phone with family, friends, or neighbors? More than three times a week 11/23/2024 How often do you get togethe r with friends or relatives? More than three times a week 11/23/2024 How often do you attend [facility] or episcopal services? Never 11/23/2024 Do you belong to any clubs o r organizations such as temple groups, unions, fraternal or athletic groups, or school groups? No 11/23/2024 How often do you attend meet ings of the clubs or organizations you belong to? Never 11/23/2024 Are you , , di vorced, , never , or living with a partner? Never 11/23/2024 AUDIT-C Answer Date Recorded Q1: How often do you have a drink containing alcohol? Never 11/23/2024 Q2: How many drinks containi ng alcohol do you have on a typical day when you are drinking? Patient does not drink Q3: How often do you have si x or more drinks on one occasion? Never 11/23/2024 Overall Financial Resource Strain (CARDIA) Answe r Date Recorded How hard is it for you to pa y for the very basics like food, housing, medical care, and heating? Not hard at all 12/10/2024 PHQ-2 Answer Date Recorded Patient Health Questionnaire-2 Score 0 11/23/2024 [facility] [place] of Occupat ional Health - Occupational Stress Questionnaire Answer Date Recorded Do you feel stress - tense, restless, nervous, or anxious, or unable to sleep at night because your mind is troubled all the time - these days? Only a little 11/23/2024 Exercise Vital Sign Answer Date Recorde d On average, how many days pe r week do you engage in moderate to strenuous exercise (like a brisk walk)? 3 days 11/23/2024 On average, how many minutes do you engage in exercise at this level? 60 min 11/23/2024 Hunger Vital Sign Answer Date Recorded Within the past 12 months, y ou worried that your food would run out before you got the money to buy more. Never true 12/11/19 25 Within the past 12 months, t he food you bought just didn't last and you didn't have money to get more. Never true 12/10/2024 PRAPARE - Transportation Answer Date Re corded In the past 12 months, has l ack of transportation kept you from medical appointments or from getting medications? No 11/18 In the past 12 months, has l ack of transportation kept you from meetings, work, or from getting things needed for daily living? No 12/10/2024 Housing Stability Vital Sign Answer Pablo e Recorded In the last 12 months, was t here a time when you were not able to pay the mortgage or rent on time? No 03/20/2023 In the last 12 months, how many places have you lived? 1 03/20/2023 In the last 12 months, was t here a time when you did not have a steady place to sleep or slept in a fpc (including now)? No 03/20/2023 Housing Stability Vital Sign Answer Pablo e Recorded In the last 12 months, was t here a time when you were not able to pay the mortgage or rent on time? No 12/10/2024 In the past 12 months, how m any times have you moved where you were living? 0 12/10/2024 At any time in the past 12 m [facility], were you homeless or living in a fpc (including now)? No 12/10/2024 Comments No Sex and Gender Information Value Date Recorded Sex Assigned at Female 11/16/2019 8:56 AM CDT Legal Sex Female 5:15 PM CDT Gender Identity Female 11/16/2019 8:56 AM CDT Sexual Orientation Straight 11/16/2019 8: 56 AM CDT documented as of this encounter Functional Status * Are you deaf or do you have serious difficulty hearing Answer Date of Assessment Author Status No 12/10/2024 9:26 PM CDT Elidia Harry R N Active * Are you blind or do you have serious difficulty seeing, even when wearing glasses? Answer Date of Assessment Author Status No 12/10/2024 9:26 PM CDT Elidia Harry R N Active * Do you have serious difficulty walking or climbing stairs? Answer Date of Assessment Author Status No 12/10/2024 9:26 PM CDT Elidia Harry R N Active * Do you have difficulty dressing or bathing? Answer Date of Assessment Author Status No 12/10/2024 9:26 PM CDT Elidia Harry R N Active * Because of a physical, mental, or emotional condition, do you have difficulty doing errands alone such as visiting a doctor's office or shopping? Answer Date of Assessment Author Status No 12/10/2024 9:26 PM CDT Elidia Harry R N Active documented as of this encounter Mental Status * Because of a physical, mental, or emotional condition, do you have serious difficulty concentrating, remembering, or making decisions? Answer Entry Date Author Status No 12/10/2024 9:26 PM CDT Elidia Harry R N Active documented in this encounter Progress Notes * Leonardo Washburn MD - 12/13/2024 10:15 AM CDT Ms. Bellamy, I reviewed your lung function testing. It does show that your lung volumes are lower than expected,this is not surprising given that your left lower lobe is not fully expanded. There is nothing we need to do different right now, we will likely repeat this at some point in the future. When you follow-up with me we can go over this in more detail. Leonardo Washburn MD documented in this encounter Plan of Treatment Upcoming Encounters Date Type Department Care Team (Late st Contact Info) Description 05/24/2025 10:20 AM SITECORE DEVELOPER Office Visit [facility] - [facility] [address] [place] [address] Leonardo Washburn MD [address] [place] [address] documented as of this encounter Goals Goal Patient Goal Type Associated Problems Recent Progress Patient-Stated? Author HOME TO INDEPENDENT LIVING. General No Chiquis Alicia RN Patient will return to prior living situation and remain independent in ADLs upon discharge from hospital Lifestyle No Jeri Lara LSW Health - patient able to perform ADLs independently Lifestyle No Latrice Marie BOAT PAINTER Health - patient able to perform ADLs independently Lifestyle No Latrice Marie BOAT PAINTER Patient will return to prior living situation and remain independent in ADLs upon discharge from hospital Lifestyle No Joanne Luu transportation logistics internship - family caregiver with be involved in care transitions and discharge planning Lifestyle No Latrice Marie BOAT PAINTER documented as of this encounter Visit Diagnoses Not on filedocumented in this encounter Additional Health Concerns Infection Onset Date Last Indicated Resolved Time MRSA Comment:04/27/23 +MRSA Urine 10/23/23 +MRSA from [facility]. Added from external infection. Source: [facility]. 02/09/24 +MRSA Nares from [facility]. 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 09/23/2024 09/23/2024 COVID-19 Rule Out 12/17/2024 12/17/2024 12/17/2024 6:37 PM CDT Respiratory Rule Out 12/17/2024 12/17/2024 025 6:38 PM CDT documented as of this encounter Care Teams Moving Worker Relationship Specialty Start Date End Date Edgardo Aldridge MD [address] [address] PCP - General FAMILY PRACTICE 07/03/24 Keely Ugalde APRN [address] [place] [address] PCP - Hospice Attending 10/06/24 Keely Ugalde APRN [address] [place] [address] Nurse Practitioner PALLIATIVE CARE 10/09/24 Odilon Tellez MD [address] [address] Consulting Physician NEPHROLOGY 11/17/24 Leonardo Washburn MD [address] [address] Consulting Physician Internal Medicine Pulmonary Disease 11/17/24 [place] [address] [place] [address] GASTROENTEROLOGY 11/17/24 Andrei Chaves MD [address] [facility] [address] [place], [place] [address] SURGERY 11/17/24 documented as of this encounter
--- OUTSIDE RECORDS SUMMARY | 2025-01-29 15:19 | XMS_ITS | Encounter Summary ---
Author Organization [facility] Care Team Providers Care Filling Station Equipment Mechanic Name Role Phone Unknown, Notinfile Primary Care Provider Unavail able Lay Villalta MD Primary Care Provider [phone] Tremayne Kebede MD Unavailable [phone] Georgia Mcbride RADIO TOWER TECHNICIAN Unavailable [phone] Miscellaneous, Not In File Unavailable Unava ilable Eun Camacho Primary Care Provider + Cony Pemberton DIAPER FOLDER Unavailable [phone] Antonette Vernon RN Unavailable [phone] Andrei Chaves MD PhD Unavailable [phone] Olivia Phelps MD Unavailable [phone] Edgardo Aldridge MD Primary Care Provider [phone] Odilon Tellez MD Unavailable [phone] Miscellaneous, Not In File Unavailable Unava ilable Ct Boggs DIAPER FOLDER Unavailable [phone] Odilon Tellez MD Unavailable [phone] Tracey Felix RN Unavailable [phone] Ayaka Thomas MD Unavailable [phone] Yumi Jones NP Unavailable [phone] TosinRogersRuthy DIAPER FOLDER Unavailable Unavaila ble Feli Boggs RN Unavailable [phone] Mendel Bowling RN Unavailable [phone] Leslie Baptiste [facility] Unavailable Mendel Bowling RN Unavailable [phone] Odilon Tellez MD Unavailable [phone] Mavis Barahona RN Unavailable [phone] Mahnaz Garcia RN Unavailable [phone] Jaimie Glez RN Unavailable [phone] Encounter Details Date Type Department Care Team (Latest Contact Info) Description 09/13/2016 Orders Only [facility]INCONV Provider, MD [facility] [address] [place] [address] Social History Tobacco Use Types Packs/Day Years Used Date Smoking Tobacco: Never Comments Unknown Sex and Gender Information Value Date Recorded Sex Assigned at Not on file Legal Sex Female 9:16 AM PULMONOLOGY TECHNICIAN Gender Identity Not on file Sexual [...] CDT COVID19 02/02/2020 02/02/2020 02/19/2020 3:05 AM PULMONOLOGY TECHNICIAN COVID: Recovered Comment:Added based on recent COVID [...] COVID: Suspected 06/15/2023 06/15/2023 06/15/2023 5:53 PM PULMONOLOGY TECHNICIAN C. 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 Source: [facility]. 08/20/2024 Carbapenemase, Unspecified Comment:Added from external infection. Source: [facility]. Kleb pneumo KPC 09/23/2024 10/31/2024 3:07 PM C DT CP-ATHLETIC INSTRUCTOR Comment:Added from external infection. Source: [facility]. Kleb pneumo KPC 10/31/2024 10/31/2024 documented as of this encounter Care Teams Filling Station Equipment Mechanic Relationship Specialty Start Date End Date Unknown, Notinfile PCP - General 12/28/16 08/23/18 Lay Villalta MD PCP - General Family Medicine 08/24/18 07/17/21 Eun Camacho PA PCP - General Family Medicine 07/18/21 03/08/23 Edgardo Aldridge MD [address] [facility] [address] [place] [address] PCP - General Family Medicine 04/02/23 Tremayne Kebede MD Consulting Physician Gastroenterology 02/05/20 3 Georgia Mcbride LPN [address] [place] [address] [address] [place] [address] ACO Care Garbage Collector 11/28/20 12/19/20 Miscellaneous, Not In File 07/17/21 03/16/23 Cony Pemberton, DIAPER FOLDER [address] [facility] ([facility] Mailstop [phone] [place] [address] SHOP Outpatient Wine Blender 12/07/22 12/07/22 Antonette Vernon, KADY [address] [place] [address] SHOP Outpatient Wine Blender 12/08/22 01/05/23 Andrei Chaves MD PhD [address] [facility] [address] [place] [address] Referring Physician General Surgery 03/17/23 Olivia Phelps MD [address] [employer] [address] [place], [place] [address] Consulting Physician Nephrology 03/17/23 Odilon Tellez MD [address] [facility] [address] [place], [place] [address] Consulting Physician Nephrology 05/01/23 12/04/24 Miscellaneous, Not In File 07/08/23 01/24/24 Ct Boggs, [facility] [address] [facility] ([facility]) Mailstop [phone] [place] [address] SHOP Outpatient Wine Blender 07/09/23 08/05/23 Odilon Tellez MD [address] [employer] [address] [place] [address] Referring Physician Nephrology 11/12/23 Tracye Felix, KADY [address] [place] [address] Photovoltaic Installation Technician 11/12/23 11/17/23 Ayaka Thomas MD [address] [facility] [address] [place] [address] Fellow Internal Medicine 12/17/23 Yumi Jones NP [address] [facility] [address] [place] [address] Nurse Practitioner Hospice and Palliative Medicine 08/16/23 Ruthy Leahy LCSW Medical Billing Manager 12/31/23 02/22/24 Feli Boggs, RN [address] [place] [address] [address] [place] [address] Principal Biostatistician 12/31/23 01/02/24 Mendel Bowling, KADY [address] [place] [address] [address] [place] [address] Principal Biostatistician 01/03/24 03/23/24 Leslie Baptiste, [address] [place] [address] Pharmacist Pharmacy 01/13/24 02/03/24 Mendel Bowling, KADY [address] [place] [address] [address] [place] [address] Principal Biostatistician 11/07/24 01/04/25 Odilon Tellez MD [address] [facility] [address] [place] [address] Consulting Physician Nephrology 12/05/24 Mavis Barahona, RN [address] [facility] [address] [place] [address] Photovoltaic Installation Technician 12/20/24 01/08/25 Mahnaz Garcia, KADY [address] [place] [address] [address] [place] [address] Principal Biostatistician 01/15/25 01/15/25 Jaimie Glez RN [address] [place] [address] [address] [place] [address] Principal Biostatistician 01/29/25 documented as of this encounter
--- OUTSIDE RECORDS SUMMARY | 2025-01-29 15:19 | XMS_ITS | Encounter Summary ---
Author Organization [facility] Address [facility] [place] [address] Care Team Providers Care Tool And Die Engineer Name Role Phone Edgardo Aldridge MD Primary Care Provider [phone] Keely Ugalde REMOVABLE PROSTHODONTIST Unavailable [phone] Keely Ugalde REMOVABLE PROSTHODONTIST Unavailable [phone] Odilon Tellez MD Unavailable [phone] Leonardo Washburn MD Unavailable [phone] Young Vasquez MD Unavailable [phone] Andrei Chaves MD Unavailable [phone] Encounter Details Date Type Department Care Team (Late st Contact Info) Description 11/30/2024 Results Follow-Up [facility] Endo/GI [place], [place] [id number] Leonardo Washburn MD [address] [facility] [address] [place], [place] [id number] Pathology, CYTOLOGY GENERIC, CULTURE, TISSUE W/GRAM STAIN, Additional followed-up results: 8 Social History Tobacco Use Types Packs/Day Years [...] from your doctor or pharmacy? Never 11/23/[address] [facility] Utilities Answer Date Recorded In the past 12 months has e [employer], gas, oil, or water [employer] threatened to shut off services in your home? No 12/04/2024 Humiliation, Afraid, Rape, and Kick questionnair e Answer Date Recorded Within the last year, have y ou been afraid of your partner or ex-partner? No 12/04/2024 Within the last year, have y ou been humiliated or emotionally abused in other ways by your partner or ex-partner? No Within the last year, have y ou been kicked, hit, slapped, or otherwise physically hurt by your partner or ex-partner? No 12/04/2024 Within the last year, have y ou been raped or forced to have any kind of sexual activity by your partner or ex-partner? No 12/04/2024 Social Connection and Isolation Panel Answer Date Recorded In a typical week, how many times do you talk on the phone with family, friends, or neighbors? More than three times a week 11/23/2024 How often do you get togethe r with friends or relatives? More than three times a week 11/23/2024 How often do you attend chur ch or confucianism services? Never 11/23/2024 Do you belong to any clubs o r organizations such as buddhist groups, unions, fraternal or athletic groups, or [...] care, and heating? Not hard at all 12/04/2024 PHQ-2 Answer Date Recorded Patient Health Questionnaire-2 Score 0 11/23/2024 [facility] of Occupat ional Health - Occupational Stress [...] the money to buy more. Never true 12/05/19 25 Within the past 12 months, t he food you bought just didn't last and you didn't have money to get more. Never true 12/04/2024 PRAPARE - Transportation Answer Date Re corded In the past 12 months, has l ack of transportation kept you from medical appointments or from getting medications? No 11/17 In the past 12 months, has l ack of transportation kept you from meetings, work, or from getting things needed for daily living? No 12/04/2024 Housing Stability Vital Sign Answer Pablo e [...] place to sleep or slept in a long term (including now)? No 03/20/2023 Housing Stability Vital Sign Answer Pablo e Recorded In the last 12 months, was t here a time when you were not able to pay the mortgage or rent on time? No 12/04/2024 In the past 12 months, how m any times have you moved where you were living? 0 12/04/2024 At any time in the past 12 m [facility], were you homeless or living in a long term (including now)? No 12/04/2024 Comments No Sex and Gender Information Value Date Recorded Sex Assigned at Female 11/16/2019 8:56 AM CDT Legal Sex Female 5:15 PM CDT Gender Identity Female 11/16/2019 8:56 AM CDT Sexual Orientation Straight 11/16/2019 8: 56 AM CDT documented as of this encounter Functional Status * Question Answer Date of Assessment Author Status Do you have serious difficulty walking or climbing stairs? No 11/30/2024 2:00 PM Gladys Stephen RN A ctive * Question Answer Date of Assessment Author Status Do you have difficulty dressing or bathing? No 11/30/2024 2:00 PM Gladys Stephen RN Active Because of a physical, mental, or emotional condition, do you have difficulty doing errands alone such as visiting a doctor's office or shopping? No 11/30/2024 2:00 PM Gladys Stephen RN Ac tive * Are you deaf or do you have serious difficulty hearing Answer Date of Assessment Author Status No 11/30/2024 2:00 PM Gladys Stephen RN Active * Are you blind or do you have serious difficulty seeing, even when wearing glasses? Answer Date of Assessment Author Status No 11/30/2024 2:00 PM Gladys Stephen RN Active * Do you have serious difficulty walking or climbing stairs? Answer Date of Assessment Author Status No 11/30/2024 2:00 PM Gladys Stephen RN Active * Do you have difficulty dressing or bathing? Answer Date of Assessment Author Status No 11/30/2024 2:00 PM Gladys Stephen RN Active * Because of a physical, mental, or emotional condition, do you have difficulty doing errands alone such as visiting a doctor's office or shopping? Answer Date of Assessment Author Status No 11/30/2024 2:00 PM Gladys Stephen RN Active * Question Answer Date of Assessment Author Status Are you deaf or do you have serious difficulty hearing No 11/30/2024 2:00 PM Gladys Stephen RN Ac tive Are you blind or do you have serious difficulty seeing, even when wearing glasses? No 11/30/2024 2:00 PM CDT Gladys Jesus RN Ac tive * Calculated C-SSRS Risk Score (Lifetime/Recent) Answer Date of Assessment Author Status No Risk Indicated 12/03/2024 10:58 PM CDT Celina Lara RN Active * [place] Suicide Severity Rating Scale (Screener/Recent Self-Report) Question Answer Date of Assessment Author Status 1. Wish to be (Past 1 Month) No 12/03/2024 10:58 PM CDT Sudha Lara, RN Himanshu esqueda 2. Non-Specific Active Suicidal Thoughts (Past 1 Month) No 12/03/2024 10:58 PM CDT Sudha Lara, RN Himanshu esqueda 6. Suicidal Behavior (Lifetime) No 12/03/2024 10:58 PM CDT Sudha Lara, KADY esqueda documented as of this encounter Mental Status * Question Answer Entry Date Author Status Because of a physical, mental, or emotional condition, do you have serious difficulty concentrating, remembering, or making decisions? No 11/30/2024 2:00 PM CDT Gladys Jesus RN Active * Because of a physical, mental, or emotional condition, do you have serious difficulty concentrating, remembering, or making decisions? Answer Entry Date Author Status No 11/30/2024 2:00 PM Gladys Stephen RN Active documented in this encounter Progress Notes * Leonardo Washburn MD - 11/30/2024 10:42 AM CDT Mrs. Ojeda, The fungal culture from your bronchoscopy was identified as Ju. This organism, when present, is almost always a contaminant, and not an actual infection. We can discuss further during your next visit. Leonardo Washburn MD documented in this encounter Plan of Treatment Upcoming Encounters Date Type Department Care Team (Late st Contact Info) Description 05/24/2025 10:20 AM NEONATAL SURGEON Office Visit [facility] Multispecialty Care - [facility] [address] [facility] [place] [address] Leonardo Washburn MD [address] [place] [address] documented as of this encounter Goals Goal Patient Goal Type Associated Problems Recent Progress Patient-Stated? Author HOME TO INDEPENDENT LIVING. General No Chiquis Alicia RN Patient will return to prior living situation and remain independent in ADLs upon discharge from hospital Lifestyle No Jeri Lara LSW Health - patient able to perform ADLs independently Lifestyle No Latrice Marie CASH APPLICATION CLERK Health - patient able to perform ADLs independently Lifestyle No Latrice Maire CASH APPLICATION CLERK Patient will return to prior living situation and remain independent in ADLs upon discharge from hospital Lifestyle No Joanne Luu RN Family - family caregiver with be involved in care transitions and discharge planning Lifestyle No Latrice Marie CASH APPLICATION CLERK documented as of this encounter Visit Diagnoses Not on filedocumented in this encounter Additional Health Concerns Infection Onset Date Last Indicated Resolved Time MRSA Comment:04/27/23 +MRSA Urine 10/23/23 +MRSA from [facility]. Added from external infection. Source: [facility]. 02/09/24 +MRSA Nares from [facility]. 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 09/23/2024 09/23/2024 COVID-19 Rule Out 12/17/2024 12/17/2024 12/17/2024 6:37 PM CDT Respiratory Rule Out 12/17/2024 12/17/2024 025 6:38 PM CDT documented as of this encounter Care Teams Tool And Die Engineer Relationship Specialty Start Date End Date Edgardo Aldridge MD [address] [facility] [address] [place] [address] PCP - General FAMILY PRACTICE 07/03/24 Keely Ugalde APRN [address] [place] [address] PCP - Hospice Attending 10/06/24 Keely Ugalde APRN [address] [place] [id number] Nurse Practitioner PALLIATIVE CARE 10/09/24 Odilon Tellez MD [address] [address] Consulting Physician NEPHROLOGY 11/17/24 Leonardo Washburn MD [address] [address] Consulting Physician Internal Medicine Pulmonary Disease 11/17/24 Young Vasquez MD [address] [facility] [address] [place] [address] GASTROENTEROLOGY 11/17/24 Andrei Chaves MD [facility] [address] [place] [address] SURGERY 11/17/24 documented as of this encounter
--- OUTSIDE RECORDS SUMMARY | 2025-01-29 15:19 | XMS_ITS | Clinical Summary ---
Author Organization [facility] Address [address] [place] [address] Care Team Providers Care Hogshead Filler Name Role Phone Edgardo Aldridge MD Primary Care Provider [phone] Keely Ugalde MANAGER BRAND Unavailable [phone] Keely Ugalde MANAGER BRAND Unavailable [phone] Odilon Tellez MD Unavailable [phone] Sahra Dominguez MD Unavailable [phone] Young Vasquez MD Unavailable [phone] Andrei Chaves MD Unavailable [phone] Allergies Active Allergy Reactions Criticality Noted Date Comments Diphenhydramine Other (see comment) 12/11/2024 IV contraindicated Patient reports not allergic too Hydromorphone Other (see comment) 12/11/2024 Contraindicated with gastroparesis Patient reports no allergy Hydralazine Anaphylaxis,Hives High 06/29/2018 Hives on face and was not able to swallow Latex Rash Medium 06/07/2018 Metoclopramide Other (see comment) Low 03/29/2020 Extrapyramidal symptoms Tape Rash,Unknown Medium 03/11/2017 Trimethobenzamide Swelling Medium 01/11/2024 Medications GVOKE HYPOPEN 2-PACK 1 MG/0.2ML Solution Auto-injectorInd ications:Hypogly cemia Inject 1 mg into the skin as needed. Indications: Disorder with Low Blood Sugar 0.2 mL 2024 Active ondansetron (ZOFRAN-ODT) 4 MG disintegrating tabletIndication s:Nausea Take 1 tablet (4 mg total) by mouth every 8 (eight) hours as needed for Nausea. Indications: Nausea 20 tablet 2024 Active amLODIPine (NORVASC) 5 MG tabletIndication s:Hypertension Take 1 tablet (5 mg total) by mouth 2 (two) times daily. Indications: High Blood Pressure 60 tablet 2024 Active diphenhydrAMINE (BENADRYL) 25 MG tabletIndication s:Urticaria Take 1 tablet (25 mg total) by mouth every 6 (six) hours as needed (Nausea). Indications: Hives 30 tablet 2024 Active Additional Information Patient taking differently: 50 mgOral Every 6 hours PRN, Nausea, Indications: Urticaria, Reported on 12/28/2024 escitalopram (LEXAPRO) 10 MG tabletIndication s:Depression Take 1 tablet (10 mg total) by mouth daily. Indications: Depression 30 tablet 2024 Active gabapentin (NEURONTIN) 100 MG capsuleIndicatio ns:Neuropathy Take 1 capsule (100 mg total) by mouth 3 (three) times daily. Indications: Nerve Disease 90 capsule 2024 Active insulin lispro (HUMALOG/ADMELOG ) 100 UNIT/ML injection (VIAL)Indication s:Diabetes Mellitus Inject 0-7 Units into the skin 4 (four) times daily with meals and nightly. [Less than 70: Initiate Hypoglycemia Standing Orders] [71-180: 0 units] [181-220: 2 units] [221-260: 3 units] [261-300: 4 units] [301-350: 5 units] [351-400: 6 units] [Greater than 400: 7 units and Call Physician] 10 mL 2024 Active insulin NPH (HUMULIN N) 100 UNIT/ML injectionIndicat ions:Diabetes Mellitus Inject 10 Units into the skin daily with supper. Indications: Diabetes 3 mL 2024 Active Additional Information Patient taking differently: 12 UnitsSubcutaneousNightly at bedtime, Indications: Diabetes Mellitus, Reported on 12/28/2024 insulin NPH (HUMULIN N) 100 UNIT/ML injectionIndicat ions:Diabetes Mellitus Inject 15 Units into the skin every morning. Indications: Diabetes 3 mL 2024 Active pantoprazole EC (PROTONIX) 40 MG tabletIndication s:Gastroesophage al Reflux Disease Take 1 tablet (40 mg total) by mouth daily. Indications: Gastroesophageal Reflux Disease 30 tablet 2024 Active metoprolol succinate ER (TOPROL-XL) 200 MG 24 hr tablet Take 1 tablet (200 mg total) by mouth daily. Ac tive prochlorperazine (COMPAZINE) 5 MG tabletIndication s:Nausea Take 1 tablet (5 mg total) by mouth every 6 (six) hours as needed for Nausea. Indications: Nausea 20 tablet 2024 Active naloxone (NARCAN) 4 MG/0.1ML nasal sprayIndications :Reversal of Opioid Effects 1 spray by Nasal route as needed for Opioid reversal. Indications: Reversal of Opioid Drug Effects may repeat every 2 to 3 minutes in alternating nostrils until medical assistance becomes available 1 each 12/06 Active Active Problems Problem Noted Date Diagnosed Date Chest pain 11/30/2024 Acute respiratory failure 09/18/2024 Hypoglycemia 09/11/2024 Intractable nausea and vomiting 08/07/2024 Perirectal abscess 08/07/2024 Acute hypoxic respiratory failure 07/04/2024 DKA (diabetic ketoacidosis) 05/26/2024 Nausea and vomiting 04/24/2024 Sepsis 03/12/2024 End stage chronic kidney disease 03/27/2023 Nausea & vomiting 03/26/2023 Pneumonia 02/21/2023 Gastroparesis due to DM 02/08/2023 Severe pain 12/10/2022 Gastroparesis 12/09/2022 Vomiting 11/20/2022 ESRD (end stage renal disease) 11/20/2022 Compression fracture of L3 l umbar vertebra, closed, initial encounter 10/27/2022 Hypertensive heart and chron ic kidney disease without heart failure, with stage 5 chronic kidney disease, or end stage renal disease 10/27/2022 Anemia in chronic kidney disease 10/26/2022 Unspecified hydronephrosis 10/26/2022 Pulmonary hypertension, unspecified 10/26/2022 terminologist (current) use of insulin 10/26/2022 End stage renal disease 10/26/2022 Dependence on renal dialysis 10/26/2022 RODRIGUEZ (acute kidney injury) 10/13/2022 Uncontrolled type 1 diabetes mellitus with hyperglycemia, with long-term current use of insulin 09/18/2022 Hemoglobin A1C greater than 9%, indicating poor diabetic control 09/18/2022 CKD (chronic kidney disease) stage 3, GFR 30-59 ml/min 05/29/2022 Esophagitis determined by endoscopy 09/08/2021 Diabetic nephropathy associa tin with type 1 diabetes mellitus 08/07/2021 Overview (11/20/2022): Last Assessment & Plan: Glucose overall improved Continue current regimen Given info for endo referral to call for appointment. Chronic anemia 2021 Status post laparoscopic cholecystectomy 022 HLD (hyperlipidemia) 06/03/2021 Depression 06/03/2021 Anxiety 06/03/2021 Chronic idiopathic constipation 02/12/2021 PICC (peripherally inserted central catheter) in place 05/15/2020 Overview (11/20/2022): Last Assessment & Plan: Will need to get flushed Generalized anxiety disorder 05/13/2020 Overview (11/20/2022): Last Assessment & Plan: Pt is obviously uncomfortable and anxious, though [...] 08/09 and will d/c on Lexapro 20mg Last Assessment & Plan: Chronic Cont klonopin rather than xanx Chronic cough 04/09/2020 GERD (gastroesophageal reflux disease) 0 Exhausted vascular access 03/11/2020 COVID-19 virus infection 01/18/2020 Abscess or cellulitis of scalp 11/26/2019 Iron deficiency anemia 08/09/2019 Microcytic anemia 08/06/2019 Overview (11/20/2022): Last Assessment & Plan: Stable. Nothing to do Cyclical vomiting syndrome 04/27/2019 Overview (12/29/2019): Last Assessment & Plan: Patient follows with Dr. Moura and next has an appointment in September. She is not currently on any medications other than p.r.n. Compazine. Amitriptyline stopped working for her so that was discontinued. Continue with p.r.n. Compazine. Patient states Haldol helps with her nausea as well, will order p.r.n. Haldol. Continue to monitor. Constipation 04/27/2019 Overview (12/29/2019): Last Assessment & Plan: - Chronic. - Mild colitis noted on CT, but no diarrhea, and abdominal pain and other symptoms have resolved. - Possibly from chronic constipation. Start miralax daily. - Added on ESR, CRP, though inflammatory bowel is less likely. PCP follow up. If symptoms persist, an outpatient colonoscopy can be considered. Moderate malnutrition 04/26/2019 Overview (11/20/2022): Last Assessment & Plan: PICC line in place because of need for recurrent IVF Concussion with loss of consciousness 11/08/2018 Major depression, recurrent, chronic 07/07/2018 Bronchitis 03/02/2018 Acute renal failure 10/26/2017 Urinary tract infection with hematuria 8 Gastroparesis due to secondary diabetes 10/27/19 18 Overview (11/20/2022): Last Assessment & Plan: Type 1 diabetic Cyclical vomiting, gastroparesis - undergoing eval for possible device placement by surgeon for gastroparesis. Uncontrolled nausea/vomiting currently. Restart valium PRN - helps with muscle spasms and relaxes GI. IV fluids given today for dehydration. Follow up 1 week. Labs ordered Last Assessment & Plan: Needs letter for another 2 weeks off and when returns needs intermittent restrictions on return with no more than 3 days per week, but not consecutive 3 days ETD (Eustachian tube dysfunction), bilateral 05/2017 Uncontrolled type 1 diabetes mellitus with compl ication 05/22/2017 Overview (12/29/2019): Last Assessment & Plan: -Brittle DM1 -Home [...] follow up. - Glucose control as above. Diabetic gastroparesis 05/22/2017 Overview (12/29/2019): Last Assessment & Plan: Longstanding gastroparesis per patient. Recently admitted at [facility] but left 2-3 days prior to admission here as she says she was unhappy with her care. Nausea recurred this am but no vomiting. Will resume IVF if she doesn't tolerate lunch. I reviewed some records from [facility] and found a gastric emptying study done in [place] which was normal, though this doesn't exclude gastroparesis I wonder if there is a functional component as well Regardless, cont supportive care with prn Zofran and added prn Compazine Diabetic ketoacidosis withou t coma associated with type 1 diabetes mellitus 02/02/2017 Overview (12/29/2019): Last Assessment & Plan: Likely secondary to [...] monitor. Sugars are controlled at this time. Essential hypertension 03/20/2016 Overview (12/29/2019): Last Assessment & Plan: Blood pressures were elevated on presentation, likely secondary to discomfort. Continue metoprolol on lisinopril with hold parameters. Patient states normally her blood pressures are 140s over 90s. Last Assessment & Plan: Hypotensive earlier likely from dehydration Will only order prn meds for now, hold scheduled meds Last Assessment & Plan: Titrate her Metoprolol to help her BP and HR. Acute sinusitis 11/30/2011 Resolved Problems Problem Noted Date Diagnosed Date Resolved Date DKA (diabetic ketoacidosis) 09/24/2022 03/20/2023 Encounters Date Type Department Care Team Description 12/28/2024 2:12 PM CDT - 12/28/2024 7:12 PM CDT [facility] [place] [address] Gregory Diaz MD Abdominal Pain Discharge Disposition: Left Against Medical Advice 12/28/2024 Travel 12/24/2024 6:48 PM CDT - 12/24/2024 8:50 PM CDT Emergency [facility] Emergency Room [address] [place] [id number] Starr Porter MD Chest Pain; Abdominal Pain (Patient walked into ED for complaints of chest pain, abdominal pain. Patient reports chest pain started yesterday while lying down and progressively gotten worse. Patient reports generalized abdominal pain has been going on for about a week now. Patient is scheduled for an endoscopy and colonoscopy Wednesday. ) Discharge Disposition: Left Against Medical Advice 12/24/2024 Travel 12/18/2024 1:35 PM CDT - 12/18/2024 5:34 PM CDT Emergency [facility] Emergency Room [address] [place] [address] Cristine Rey MD Vomiting; Nausea Discharge Disposition: Home or Self Care (Routine Discharge) 12/18/2024 Travel 12/17/2024 4:22 PM CDT - 12/17/2024 9:17 PM CDT [facility] [place] [address] Devyn Guadarrama DO Chest Pain; Vomiting Discharge Disposition: Left Against Medical Advice 12/17/2024 Travel 12/13/2024 Results Follow-Up [facility] Multispecialty Care - [facility] [address], [address] [place] [address] Sahra Dominguez MD Complete PFT (pre/post Hyder, Lung Vol, Diff Capacity) (12078, 76820, 54411, 62502) 12/10/2024 1:20 PM CDT - 12/14/2024 4:45 PM CDT Hospital Encounter [facility] Med/Surg 3rd [place] [address] Hung Healy MD Lamonica, Kandace C, MD Suresh, MD Charlie Alamo, MD Gilson Gipson, Kristen Pierson, EDILMA Borja, Catherine Lipscomb, COMPANY MANAGER Vomiting; Chest Pain Discharge Disposition: Home or Self Care (Routine Discharge) 12/10/2024 Travel 12/08/2024 1:35 PM CDT - 12/08/2024 11:59 PM CDT [facility] [place] [address] Sahra Dominguez MD Discharge Disposition: Home or Self Care (Routine Discharge) 12/08/2024 11:00 AM CDT Office Visit [facility] [address] [place] [address] Kya Arias, PT Edgardo Aldridge MD Leach, Danielle N, PIER MASTER Weakness (10/04) 12/08/2024 Scan HEALTH INFO SRVCS Scanned, Doc Med [facility] PFT (SCAN) 12/08/2024 Hospital Follow[facility]up Call [facility] [place] [address] Reva Campbell, DILSHAD Follow Up Call (WYATT 12/03-12/06/24) 12/08/2024 Travel 12/04/2024 Hospital [place] [address] Reva Campbell VOCATIONAL COUNSELOR Follow Up Call (WYATT 11/30-12/01/24) 12/03/2024 11:04 PM CDT - 12/06/2024 1:56 PM CDT Hospital Encounter [facility]urg 3rd [place] [address] Raul Cartagena MD,PHD Nadine Ayala, Lily Ji MD Tran, Isaac T, MD Vomiting Discharge Disposition: Home or Self Care (Routine Discharge) 12/03/2024 Travel 11/30/2024 7:24 AM CDT - 12/01/2024 3:10 PM CDT [facility] [place] [address] Julissa Lawson MD Bismack, Gregory T, MD Chest Pain; Vomiting Discharge Disposition: Home or Self Care (Routine Discharge) 11/30/2024 Results Follow-Up [facility] Endo/[place] [address] Sahra Dominguez MD Pathology, CYTOLOGY GENERIC, CULTURE, TISSUE W/GRAM STAIN, Additional followed-up results: 8 11/29/2024 9:54 AM CDT - 11/29/2024 2:06 PM CDT Emergency [facility] Emergency [place] [address] Julissa Lawson MD Abdominal Pain Discharge Disposition: Home or Self Care (Routine Discharge) 11/29/2024 Travel 11/28/2024 Hospital Follow-[facility] [place] [address] Reva Campbell LPN Follow Up Call (WYATT 11/23-11/25/24) 11/27/2024 9:45 AM CDT Office Visit [facility] [address] [place], [place] [id number] Kya Arias, PT Shellie Sanchez, COMPANY MANAGER Edgardo Aldridge MD Leach, Yareli Anna, PIER MASTER Weakness (09/03) 11/27/2024 Telephone [facility] Medical [facility] Multispecialty Care - [facility] [address] [place] [id number] Sahra Dominguez MD Results 11/27/2024 Travel 11/23/2024 5:12 AM CDT - 11/25/2024 3:56 PM CDT Hospital Encounter [facility] Med/Surg 5th [place] [address] Julissa Lawson MD Jerkovich, Adria, MD Islam, Maaroof, MD Chest Pain; Hyperglycemia Symptomatic Discharge Disposition: Home or Self Care (Routine Discharge) 11/23/2024 Travel 11/21/2024 9:10 AM CDT Anesthesia Event [facility] [address] Silverio Hill MD Jarvis, Brittany L, AUDITING SPECIALIST 11/21/2024 9:00 AM CDT - 11/21/2024 10:00 AM CDT Surgery [facility] [address] Sahra Dominguez MD BRONCHOSCOPY WITH LAVAGE (BAL)-LEFT LOWER LOBE WITH RADIAL PROBE 11/21/2024 7:20 AM CDT - 11/21/2024 11:42 AM CDT Hospital En[facility] [place] [address] Sahra Dominguez MD Discharge Disposition: Home or Self Care (Routine Discharge) 11/20/2024 2:00 PM CDT Office Visit [facility] [address] [place] [address] Kya Arias, PT Shellie Sanchez, COMPANY MANAGER Edgardo Aldridge MD Leach, Danielle N, PIER MASTER Weakness (08/04) 11/20/2024 Travel 11/17/2024 11:00 AM CDT Office Visit [facility] [address] [place] [address] Edgardo Aldridge MD Daniels, Darcy L, COMPANY MANAGER Yareli Barron, PIER MASTER Weakness (07/04) 11/17/2024 Prep for Procedure [facility] [place] [address] Mehnaz Boogie, AUDITING SPECIALIST 11/17/2024 Travel 11/16/2024 11:20 AM CDT Office Visit [facility] Medical Group Multispecialty Care - [facility] [address] [place] [phone] Sahra Dominguez MD Follow Up (Increased SOB and coughing. ) 11/16/2024 10:18 AM CDT - 11/16/2024 11:59 PM CDT Hospital Encounter [facility] [address] [place] [address] Edgardo Aldridge MD Discharge Disposition: Home or Self Care (Routine Discharge) 11/16/2024 Scan HEALTH INFO SRVCS Scanned, Doc Med Group 11/16/2024 [facility]phone [facility] [address], [address] [place] [address] Sahra Dominguez MD Orders 11/16/2024 Travel 11/13/2024 11:00 AM CDT Office Visit [facility] [address] [place] [address] Edgardo Aldridge MD Daniels, Darcy L, COMPANY MANAGER Yareli Barron, PIER MASTER Weakness (06/06) 11/13/2024 Travel 11/13/2024 [facility] [address] [place] [address] CHEST WO CON 11/11/2024 11:03 AM CDT - 11/11/2024 11:59 PM CDT [facility] [place] [address] Sahra Dominguez MD Discharge Disposition: Home or Self Care (Routine Discharge) 11/11/2024 Travel 11/08/2024 2:30 PM CDT Office Visit [facility] [address] [place] [address] Kya Arias, PT Shellie Sanchez, COMPANY MANAGER Edgardo Aldridge MD Weakness (05/06 IE) 11/08/2024 Travel from Last 3 Months Immunizations Immunization Administration Dates Next Due Dtap (Acel-Immune) 12/03/2000,01/17/1998 Dtp/Hib (Tetramune) 07/10/1996, 6,1995,1995 FLUCELVAX (ccIIV3, TRIVALENT, 0.5mL) 02/02/2024 Fluzone 6 Months+ Quad (0.5 mL Prefilled Syringe) 02/16/2023,02/16/2023() Hepatitis B 1995,1995,1995 Hepatitis B Vac Recomb Adj 2 0 Mcg/0.5ml Im Sosy 09/02/2023,07/20/2023 Hib (Omni-Hib) 01/17/1998 Influenza (Generic) 02/27/2020,02/28/2019 Influenza Adult (Generic) 02/14/2021 MMR (MMRII) 12/03/2000,10/12/1996 Polio Opv (Generic) 01/17/1998, 7,01/21/1996,1995,1995 Varicella (Varivax) 10/12/1996 Family History Medical History Relation Comments Seizures Brother None Father Cancer Maternal Aunt Heart Disease Maternal Grandmother Hypertension Maternal Grandmother Hypertension Mother None Mother Relation Status Comments Brother Alive Father Alive Maternal Aunt Alive Maternal Grandmother Alive Mother Alive Social History Tobacco Use Types Packs/Day Years Used Date Smoking Tobacco: Never Smokeless Tobacco: Never Tobacco Cessation:Counseling Given: Yes Alcohol Use Standard Drinks/Week Comments Not Currently 0 (1 standard drink = 0.6 oz pur e alcohol) occasionally B1300 Health Literacy Answer Date Recor ded How often do you need to hav e someone help you when you read instructions, pamphlets, or other written material from your doctor or pharmacy? Never 11/23/2024 24/7 Card Utilities Answer Date Recorded In the past 12 months has [facility] [employer], [employer], or water [employer] threatened to shut off services in your [...] 11/23/2024 How often do you attend chur or tenriism services? Never 11/23/2024 Do you belong to [...] Recorded Patient Health Questionnaire-2 Score 0 11/23/2024 [facility] - [...] slept in a alf (including now)? No 03/20/2023 Housing Stability Vital [...] time in the past 12 m [facility], were you homeless or living in a alf (including now)? No 12/10/2024 Comments No Sex and Gender Information Value Date Recorded Sex Assigned at Female 11/16/2019 8:56 AM CDT Legal Sex Female 5:15 PM CDT Gender Identity Female 11/16/2019 8:56 AM CDT Sexual Orientation Straight 11/16/2019 8: 56 AM CDT Last Filed Vital Signs Vital Sign Reading Time Taken Comments Blood Pressure 171/97 12/28/2024 6:00 PM CDT Pulse 103 12/28/2024 2:17 PM CDT Temperature 36.4 C (97.6 F) 12/24/2024 6:58 PM CDT Respiratory Rate 20 12/28/2024 2:17 PM CDT Oxygen Saturation 96% 12/28/2024 6:00 PM CDT Inhaled Oxygen Concentration - - Weight 65.2 kg (143 lb 11.8 oz) 12/28/2024 2:17 PM CDT Height 162.6 cm (5' 4) 12/28/2024 2:17 PM CDT Body Mass Index 24.67 12/28/2024 2:17 PM CDT Plan of Treatment Upcoming Encounters Date Type Department Care Team (Late st Contact Info) Description 05/24/2025 10:[address] VENDOR Office Visit [facility] Multispecialty Care - [facility] [address] [place] [address] Sahra Dominguez MD [address] [place] [address] Health Maintenance Due Date Last Done Comments Cervical Cancer Screening Pap Smear (Age 21 to 29) Every 3 Years 1995 Cervical Cancer Screening 1995 Annual Physical 06/16/1998 Diabetes: Retinopathy Eye Exam 06/16/2013 DTaP, Tdap and Td Vaccines (3 - Tdap) 06/16/2014 12/03/2000, 01/17/1998, 07/10/1996, Additional history exists Pneumococcal Vaccine: Pediatrics (0 to 5 Years) and At-Risk Patients (6 to 49 Years) (1 of 2 - PCV) 06/16/2014 HPV Vaccines (1 - 3-dose SCDM series) 06/16/2022 COVID-19 Vaccine (2 - season) 2024 01/24/2021 Influenza Adult (#1) 2025 02/02/2024, 02/16/2023, 02/14/2021, Additional history exists Hemoglobin A1C 02/24/2025 11/24/2024, 10/17, 10/29/2024, Additional history exists Lipid Panel 12/04/2025 12/04/2024, 09/19, 02/25/2021, Additional history exists Hepatitis B Vaccines Completed 09/02/2023, 07/20/2023, 1995, Additional history exists Hepatitis C Completed 10/31/2024, 08/17, 06/19/2024, Additional history exists PHQ-2 (Physician [place]) Completed 11/23/2024 Hepatitis A Vaccines Aged Out No long er eligible based on patient's age to complete this topic Meningococcal B Vaccine Aged Out No l onger eligible based on patient's age to complete this topic Meningococcal Vaccine Aged Out No kirk yosef eligible based on patient's age to complete this topic RSV Immunizations Under 20 Months Aged Out No longer eligible based on [...] able to perform ADLs independently Lifestyle No Latriec Marie ROUGHING MILL OPERATOR Health - patient able to perform ADLs independently Lifestyle No Latrice Marie ROUGHING MILL OPERATOR Patient will return to prior living situation and remain independent in ADLs upon discharge from hospital Lifestyle No Joanne Luu asset specialist - family caregiver with be involved in care transitions and discharge planning Lifestyle No Latrice Marie ROUGHING MILL OPERATORbatt machine operator Devices Implanted Type Area Manager Dental Device Identifier Shelf Expiration Date Model / Serial / Lot Catheter Power Port Mri Implanted 8fr - [id number] Implanted:Qty: 1 on 03/07/2024 by Juan Long MD at [facility] Port Left: Chest [employer] - [employer] [id number] 09/16/2025 [id number] / / [id number] Gastric Neurostimulator Implant Stimulator Implant Procedures Procedure Name Priority Date/Time Associated Diagnosis Comments ELECTROCARDIOGRAM REPORT Routine 025 7:14 PM CDT COMPREHENSIVE METABOLIC PANEL STAT 12/28/2024 6:22 PM CDT HC URINALYSIS AUTO W/O MICRO STAT 12/28/2024 6:22 PM CDT XR CHEST PORTABLE STAT 12/28/2024 5:3 7 PM CDT ECG 12-LEAD Routine 12/28/2024 3:18 PM CDT PHOSPHORUS, INORGANIC PHOSPHATE Routine 12/28/2024 2:34 PM CDT MAGNESIUM Routine 12/28/2024 2:34 PM CDT CHORIONIC GONADOTROPIN HCG QL STAT 12/28/2024 2:34 PM CDT LIPASE STAT 12/28/2024 2:34 PM CDT TROPONIN, QUANT STAT 12/28/2024 2:34 PM CDT COMPREHENSIVE METABOLIC PANEL STAT 12/28/2024 2:34 PM CDT CBC W/DIFF AUTOMATED STAT 12/28/2024 2:34 PM CDT CRITICAL CARE Routine 12/24/2024 8:38 PM CDT CBC W/DIFF AUTOMATED STAT 12/24/2024 8:06 PM CDT BLOOD GAS, ARTERIAL LAB STAT 12/25/19 8:04 PM CDT BETA-HYDROXYBUTYRATE STAT 12/24/2024 7:10 PM CDT COMPREHENSIVE METABOLIC PANEL STAT 12/24/2024 7:10 PM CDT ECG 12-LEAD Routine 12/24/2024 6:57 PM CDT XR ABD FLAT+UPRIGHT STAT 12/18/2024 4 :28 PM CDT BETA-HYDROXYBUTYRATE STAT 12/18/2024 3:10 PM CDT BLOOD GAS, VENOUS STAT 12/18/2024 3:1 0 PM CDT TROPONIN, QUANT STAT 12/18/2024 3:10 PM CDT COMPREHENSIVE METABOLIC PANEL STAT 12/18/2024 3:10 PM CDT LACTIC ACID STAT 12/18/2024 3:10 PM CDT MAGNESIUM STAT 12/18/2024 3:10 PM CDT LIPASE STAT 12/18/2024 3:10 PM CDT CBC W/DIFF AUTOMATED STAT 12/18/2024 3:10 PM CDT ECG 12-LEAD Routine 12/18/2024 1:35 PM CDT CORONAVIRUS (COVID 19) STAT 6:02 PM CDT INFLUENZA A & B STAT 12/17/2024 6:01 PM CDT CTA CHEST+ABD+PEL STAT 12/17/2024 5:5 7 PM CDT CHORIONIC GONADOTROPIN HCG QL STAT 12/17/2024 5:22 PM CDT LIPASE STAT 12/17/2024 5:22 PM CDT TROPONIN, QUANT STAT 12/17/2024 5:22 PM CDT COMPREHENSIVE METABOLIC PANEL STAT 12/17/2024 5:22 PM CDT CBC W/DIFF AUTOMATED STAT 12/17/2024 5:22 PM CDT ECG 12-LEAD Routine 12/17/2024 3:28 PM CDT POCT GLUCOSE - DOCKED DEVICE Routine 12/14/2024 3:45 PM CDT BASIC METABOLIC PANEL STAT 12/14/2024 3:18 PM CDT POCT GLUCOSE - DOCKED DEVICE Routine 12/14/2024 10:34 AM CDT CBC W/DIFF AUTOMATED Routine 12/14/2024 8:58 AM CDT BASIC METABOLIC PANEL Routine 12/14/2024 8:58 AM CDT POCT GLUCOSE - DOCKED DEVICE Routine 12/14/2024 7:33 AM CDT POCT GLUCOSE - DOCKED DEVICE Routine 12/13/2024 7:45 PM CDT POCT GLUCOSE - DOCKED DEVICE Routine 12/13/2024 3:23 PM CDT BASIC METABOLIC PANEL Routine 12/13/2024 1:29 PM CDT CBC W/DIFF AUTOMATED Routine 12/13/2024 1:29 PM CDT POCT GLUCOSE - DOCKED DEVICE Routine 12/13/2024 11:31 AM CDT POCT GLUCOSE - DOCKED DEVICE Routine 12/13/2024 8:12 AM CDT POCT GLUCOSE - DOCKED DEVICE Routine 12/12/2024 6:38 PM CDT BASIC METABOLIC PANEL TIMED 12/12/2024 2:29 PM CDT POCT GLUCOSE - DOCKED DEVICE Routine 12/12/2024 11:15 AM CDT POCT GLUCOSE - DOCKED DEVICE Routine 12/12/2024 8:22 AM CDT BASIC METABOLIC PANEL Routine 12/12/2024 6:50 AM CDT CBC W/DIFF AUTOMATED Routine 12/12/2024 6:50 AM CDT POCT GLUCOSE - DOCKED DEVICE Routine 12/12/2024 1:51 AM CDT POCT GLUCOSE - DOCKED DEVICE Routine 12/11/2024 7:25 PM CDT POCT GLUCOSE - DOCKED DEVICE Routine 12/11/2024 4:43 PM CDT HC URINALYSIS AUTO W/O MICRO STAT 12/11/2024 12:[address] ABD+PEL W CON Today 12/11/2024 12:0 7 PM CDT POCT GLUCOSE - DOCKED DEVICE Routine 12/11/2024 10:53 AM CDT POCT GLUCOSE - DOCKED DEVICE Routine 12/11/2024 6:24 AM CDT BASIC METABOLIC PANEL Routine 12/11/2024 5:15 AM CDT CBC W/DIFF AUTOMATED Routine 12/11/2024 5:15 AM CDT POCT GLUCOSE - DOCKED DEVICE Routine 12/11/2024 1:13 AM CDT BASIC METABOLIC PANEL STAT 12/10/2024 10:29 PM CDT POCT GLUCOSE - DOCKED DEVICE Routine 12/10/2024 10:18 PM CDT POCT GLUCOSE - DOCKED DEVICE Routine 12/10/2024 9:12 PM CDT XR CHEST PORTABLE STAT 12/10/2024 4:4 4 PM CDT THYROXINE, FREE (FT4) STAT 12/10/2024 2:03 PM CDT BETA-HYDROXYBUTYRATE STAT 12/10/2024 2:03 PM CDT LACTIC ACID W REFLEX (SEPSIS) STAT 12/10/2024 2:03 PM CDT PHOSPHORUS, INORGANIC PHOSPHATE STAT 12/10/2024 2:03 PM CDT MAGNESIUM STAT 12/10/2024 2:03 PM CDT TSH W/REFLEX STAT 12/10/2024 2:03 PM CDT LIPASE STAT 12/10/2024 2:03 PM CDT TROPONIN, QUANT STAT 12/10/2024 2:03 PM CDT COMPREHENSIVE METABOLIC PANEL STAT 12/10/2024 2:03 PM CDT PARTIAL THROMBOPLASTIN TIME,PTT STAT 12/10/2024 2:03 PM CDT PROTHROMBIN TIME, VENOUS STAT 2:03 PM CDT CBC W/DIFF AUTOMATED STAT 12/10/2024 2:03 PM CDT BLOOD GAS, VENOUS STAT 12/10/2024 2:0 0 PM CDT ECG 12-LEAD Routine 12/10/2024 1:32 PM CDT PULMONARY FUNCTION TEST Routine 12/09/19 2:00 PM CDT Shortness of breath HOME O2 EVAL Routine 12/08/2024 2:00 PM CDT SIX MINUTE WALK Routine 12/08/2024 1:36 PM CDT Shortness of breath PFT GENERIC (SCAN ORDER) 12/08/2024 CBC W/DIFF AUTOMATED Routine 12/06/2024 6:39 AM CDT BASIC METABOLIC PANEL Routine 12/06/2024 6:39 AM CDT POCT GLUCOSE - DOCKED DEVICE Routine 12/05/2024 10:23 PM CDT POCT GLUCOSE - DOCKED DEVICE Routine 12/05/2024 9:51 PM CDT POCT GLUCOSE - DOCKED DEVICE Routine 12/05/2024 8:00 PM CDT POCT GLUCOSE - DOCKED DEVICE Routine 12/05/2024 3:21 PM CDT POCT GLUCOSE - DOCKED DEVICE Routine 12/05/2024 12:13 PM CDT BASIC METABOLIC PANEL STAT 12/05/2024 8:15 AM CDT POCT GLUCOSE - DOCKED DEVICE Routine 12/05/2024 6:53 AM CDT POCT GLUCOSE - DOCKED DEVICE Routine 12/04/2024 7:55 PM CDT POCT GLUCOSE - DOCKED DEVICE Routine 12/04/2024 4:11 PM CDT LIPID PANEL Routine 12/04/2024 11:58 AM CDT BASIC METABOLIC PANEL Routine 12/04/2024 11:58 AM CDT POCT GLUCOSE - DOCKED DEVICE Routine 12/04/2024 10:52 AM CDT POCT GLUCOSE - DOCKED DEVICE Routine 12/04/2024 9:58 AM CDT POCT GLUCOSE - DOCKED DEVICE Routine 12/04/2024 9:01 AM CDT BASIC METABOLIC PANEL STAT 12/04/2024 9:00 AM CDT POCT GLUCOSE - DOCKED DEVICE Routine 12/04/2024 8:03 AM CDT POCT GLUCOSE - DOCKED DEVICE Routine 12/04/2024 7:06 AM CDT POCT GLUCOSE - DOCKED DEVICE Routine 12/04/2024 6:00 AM CDT POCT GLUCOSE - DOCKED DEVICE Routine 12/04/2024 5:08 AM CDT POCT GLUCOSE - DOCKED DEVICE Routine 12/04/2024 4:38 AM CDT CULTURE, BACTERIA, BLOOD STAT 025 4:00 AM CDT BASIC METABOLIC PANEL STAT 12/04/2024 4:00 AM CDT POCT GLUCOSE - DOCKED DEVICE Routine 12/04/2024 3:57 AM CDT CULTURE, BACTERIA, BLOOD STAT 025 3:10 AM CDT LACTIC ACID W REFLEX (SEPSIS) TIMED 12/04/2024 3:10 AM CDT POCT GLUCOSE - DOCKED DEVICE Routine 12/04/2024 3:01 AM CDT MRSA SCREENING Routine 12/04/2024 2:30 AM CDT POCT GLUCOSE - DOCKED DEVICE Routine 12/04/2024 1:57 AM CDT ECG 12-LEAD STAT 12/03/2024 11:52 PM CDT URINE BACTERIA CULTURE Routine 11:50 PM CDT HC URINALYSIS AUTO W/O MICRO STAT 12/03/2024 11:50 PM CDT CHORIONIC GONADOTROPIN HCG QL STAT 12/03/2024 11:48 PM CDT LACTIC ACID W REFLEX (SEPSIS) STAT 12/03/2024 11:48 PM CDT BETA-HYDROXYBUTYRATE STAT 12/03/2024 11:48 PM CDT PHOSPHORUS, INORGANIC PHOSPHATE STAT 12/03/2024 11:48 PM CDT MAGNESIUM STAT 12/03/2024 11:48 PM CDT LIPASE STAT 12/03/2024 11:48 PM CDT TROPONIN, QUANT STAT 12/03/2024 11:48 PM CDT COMPREHENSIVE METABOLIC PANEL STAT 12/03/2024 11:48 PM CDT CBC W/DIFF AUTOMATED STAT 12/03/2024 11:48 PM CDT XR CHEST PORTABLE STAT 12/03/2024 11: 16 PM CDT POCT GLUCOSE - DOCKED DEVICE Routine 12/03/2024 11:00 PM CDT BLOOD GAS, VENOUS STAT 12/03/2024 10: 58 PM CDT POCT GLUCOSE - DOCKED DEVICE Routine 12/01/2024 1:33 PM CDT POCT GLUCOSE - DOCKED DEVICE Routine 12/01/2024 11:11 AM CDT MAGNESIUM Routine 12/01/2024 9:14 AM CDT COMPREHENSIVE METABOLIC PANEL Routine 12/01/2024 9:14 AM CDT CBC W/DIFF AUTOMATED Routine 12/01/2024 9:14 AM CDT POCT GLUCOSE - DOCKED DEVICE Routine 12/01/2024 6:07 AM CDT POCT GLUCOSE - DOCKED DEVICE Routine 11/30/2024 8:53 PM CDT BASIC METABOLIC PANEL STAT 11/30/2024 5:11 PM CDT POCT GLUCOSE - DOCKED DEVICE Routine 11/30/2024 3:14 PM CDT POCT GLUCOSE - DOCKED DEVICE Routine 11/30/2024 9:50 AM CDT CTA CHEST+ABD+PEL STAT 11/30/2024 8:5 7 AM CDT XR CHEST PORTABLE STAT 11/30/2024 8:2 1 AM CDT BLOOD GAS, VENOUS STAT 11/30/2024 8:0 0 AM CDT LIPASE STAT 11/30/2024 7:46 AM CDT TROPONIN, QUANT STAT 11/30/2024 7:46 AM CDT COMPREHENSIVE METABOLIC PANEL STAT 11/30/2024 7:46 AM CDT CBC W/DIFF AUTOMATED STAT 11/30/2024 7:46 AM CDT ECG 12-LEAD STAT 11/30/2024 7:19 AM CDT BETA-HYDROXYBUTYRATE STAT 11/29/2024 10:34 AM CDT LIPASE STAT 11/29/2024 10:34 AM CDT COMPREHENSIVE METABOLIC PANEL STAT 11/29/2024 10:34 AM CDT CBC W/DIFF AUTOMATED STAT 11/29/2024 10:34 AM CDT BLOOD GAS, VENOUS STAT 11/29/2024 9:5 7 AM CDT POCT GLUCOSE - DOCKED DEVICE Routine 11/25/2024 12:22 PM CDT BASIC METABOLIC PANEL Routine 11/25/2024 11:22 AM CDT CBC W/DIFF AUTOMATED Routine 11/25/2024 10:55 AM CDT POCT GLUCOSE - DOCKED DEVICE Routine 11/25/2024 6:32 AM CDT POCT GLUCOSE - DOCKED DEVICE Routine 11/25/2024 12:43 AM CDT POCT GLUCOSE - DOCKED DEVICE Routine 11/24/2024 7:27 PM CDT POCT GLUCOSE - DOCKED DEVICE Routine 11/24/2024 4:49 PM CDT POCT GLUCOSE - DOCKED DEVICE Routine 11/24/2024 1:00 PM CDT BASIC METABOLIC PANEL TIMED 11/24/2024 8:11 AM CDT CBC W/DIFF AUTOMATED Routine 11/24/2024 3:50 AM CDT HEMOGLOBIN, GLYCOSYLATED Routine 025 3:50 AM CDT COMPREHENSIVE METABOLIC PANEL Routine 11/24/2024 3:50 AM CDT MAGNESIUM Routine 11/24/2024 3:50 AM CDT BASIC METABOLIC PANEL STAT 11/24/2024 12:30 AM CDT BASIC METABOLIC PANEL STAT 11/23/2024 9:20 PM CDT POCT GLUCOSE - DOCKED DEVICE Routine 11/23/2024 7:12 PM CDT BASIC METABOLIC PANEL STAT 11/23/2024 5:20 PM CDT POCT GLUCOSE - DOCKED DEVICE Routine 11/23/2024 5:16 PM CDT POCT GLUCOSE - DOCKED DEVICE Routine 11/23/2024 4:19 PM CDT POCT GLUCOSE - DOCKED DEVICE Routine 11/23/2024 3:52 PM CDT POCT GLUCOSE - DOCKED DEVICE Routine 11/23/2024 3:14 PM CDT TROPONIN, QUANT STAT 11/23/2024 3:00 PM CDT BASIC METABOLIC PANEL STAT 11/23/2024 3:00 PM CDT POCT GLUCOSE - DOCKED DEVICE Routine 11/23/2024 2:43 PM CDT POCT GLUCOSE - DOCKED DEVICE Routine 11/23/2024 1:54 PM CDT POCT GLUCOSE - DOCKED DEVICE Routine 11/23/2024 1:24 PM CDT HC URINALYSIS AUTO W/O MICRO STAT 11/23/2024 12:30 PM CDT POCT GLUCOSE - DOCKED DEVICE Routine 11/23/2024 12:16 PM CDT MRSA SCREENING Routine 11/23/2024 12:15 PM CDT RESPIRATORY PCR PANEL 2 STAT 11/24/19 12:15 PM CDT POCT GLUCOSE - DOCKED DEVICE Routine 11/23/2024 11:27 AM CDT POCT GLUCOSE - DOCKED DEVICE Routine 11/23/2024 10:28 AM CDT POCT GLUCOSE - DOCKED DEVICE Routine 11/23/2024 9:31 AM CDT CULTURE, BACTERIA, BLOOD STAT 025 8:43 AM CDT TROPONIN, QUANT STAT 11/23/2024 8:43 AM CDT PROCALCITONIN (PCT) Routine 11/23/2024 8 :43 AM CDT PHOSPHORUS, INORGANIC PHOSPHATE Routine 11/23/2024 8:43 AM CDT MAGNESIUM STAT 11/23/2024 8:43 AM CDT COMPREHENSIVE METABOLIC PANEL STAT 11/23/2024 8:43 AM CDT CBC W/DIFF AUTOMATED STAT 11/23/2024 8:43 AM CDT CULTURE, BACTERIA, BLOOD STAT 025 8:33 AM CDT POCT GLUCOSE - DOCKED DEVICE Routine 11/23/2024 8:11 AM CDT POCT GLUCOSE - DOCKED DEVICE Routine 11/23/2024 6:50 AM CDT CRITICAL CARE Routine 11/23/2024 6:32 AM CDT XR CHEST PORTABLE STAT 11/23/2024 5:4 8 AM CDT BLOOD GAS, VENOUS STAT 11/23/2024 5:4 2 AM CDT TROPONIN, QUANT STAT 11/23/2024 5:37 AM CDT COMPREHENSIVE METABOLIC PANEL STAT 11/23/2024 5:37 AM CDT CBC W/DIFF AUTOMATED STAT 11/23/2024 5:37 AM CDT BETA-HYDROXYBUTYRATE STAT 11/23/2024 5:36 AM CDT POCT GLUCOSE - DOCKED DEVICE Routine 11/23/2024 5:23 AM CDT ECG 12-LEAD Routine 11/23/2024 5:16 AM CDT POCT GLUCOSE - DOCKED DEVICE Routine 11/21/2024 10:20 AM CDT XR CHEST PORTABLE STAT 11/21/2024 10: 16 AM CDT SURG XR BRONCHOSCOPY Routine 11/21/2024 10:01 AM CDT BRONCHOSCOPY PFT Routine 11/21/2024 9:52 AM CDT CULTURE, TB/AFB W/ STAIN Routine 025 9:42 AM CDT CULTURE, FUNGUS W/ STAIN Routine 025 9:42 AM CDT CULTURE, TISSUE W/GRAM STAIN Routine 11/21/2024 9:42 AM CDT CULTURE, TB/AFB W/ STAIN Routine 025 9:30 AM CDT CULTURE LOWER RESPIRATORY W/GRAM STAIN Routine 11/21/2024 9:30 AM CDT CULTURE, FUNGUS W/ STAIN Routine 025 9:30 AM CDT CULTURE, TB/AFB W/ STAIN Routine 025 9:27 AM CDT CULTURE LOWER RESPIRATORY W/GRAM STAIN Routine 11/21/2024 9:27 AM CDT CULTURE, FUNGUS W/ STAIN Routine 025 9:27 AM CDT CELL COUNT W/ DIFF BODY FLUID Routine 11/21/2024 9:27 AM CDT BRONCHOSCOPY,BIOPSY 11/21/2024 9 :10 AM CDT LLL consolidation BRONCHOSCOPY,DIAGNOSTIC W BRUSH 11/21/2024 9:10 AM CDT LLL consolidation BRONCHOSCOPY,DIAGNOSTIC W LAVAGE 11/21/2024 9:10 AM CDT LLL consolidation POCT GLUCOSE - DOCKED DEVICE Routine 11/21/2024 9:05 AM CDT POCT GLUCOSE - DOCKED DEVICE Routine 11/21/2024 8:27 AM CDT CHORIONIC GONADOTROPIN HCG QL Routine 11/21/2024 8:07 AM CDT BASIC METABOLIC PANEL STAT 11/21/2024 8:07 AM CDT Preop examination CBC W/DIFF AUTOMATED STAT 11/21/2024 8:07 AM CDT Preop examination CYTOLOGY GENERIC Routine 11/21/2024 12:0 0 AM CDT PATHOLOGY Routine 11/21/2024 12:00 AM CDT XR FOOT RT 3V Routine 11/16/2024 10:59 AM CDT Crushing injury of foot and ankle, right, subsequent encounter XR ANKLE RT M3V Routine 11/16/2024 10:59 AM CDT Crushing injury of foot and ankle, right, subsequent encounter CT CHEST WO CON Routine 11/11/2024 11:16 AM CDT Pneumonia of left upper lobe due to infectious organism HEPATITIS PANEL,ACUTE Routine 08/27/2024 9:41 AM CDT from Last 3 Months or Most Recently Relevant to Health Maintenance Results * EKG Reading (12/28/2024 7:14 PM CDT) Gregory Oconnor MD - 12/28/2024 7:14 PM CDT Gregory Diaz MD 12/28/2024 7:15 PM EKG Reading Date/Time: 12/28/2024 7:14 PM Performed by: Gregory Diaz MD Authorized by: Gregory Diaz MD Interpreted by ED physician Comparison: compared with previous ECG from 12/24/2024 Rhythm: sinus rhythm Rate: normal BPM: 91 Comments: Normal sinus rhythm. Heart rate 91. Normal axis Norval narrow QRS nonspecific ST-T wave changes compared to EKG from 12/24/2024 Rhythm strip ordered interpreted 1518 Normal sinus rhythm. Heart rate 91. No ectopy us Gregory Diaz MD [place] [facility] Final Result * (ABNORMAL) URINALYSIS (12/28/2024 6:22 PM CDT) Only the most recent of4 resultswithin the time period is included. SPECIMEN TYPE URINE CLEAN CATCH 12/28/2024 6:24 PM CDT [facility] COLOR (U) COLORLESS 12/28/2024 6:55 PM CDT [facility] TRANSPARENCY CLEAR 12/28/2024 6:55 PM CDT [facility] SPECIFIC GRAVITY (U) 1.020 1.001 - 1.030 12/28/2024 6:55 PM CDT [facility] U PH 7.0 5.0 - 9.0 12/28/2024 6:55 PM CDT [facility] LEUKOCYTES (U) NEGATIVE NEGATIVE 12/28/2024 6:55 PM CDT [facility] NITRITES NEGATIVE NEGATIVE 12/28/2024 6:55 PM CDT [facility] PROTEIN RANDOM (U) 300(H) <30 MG/DL 12/28/2024 6:55 PM CDT [facility] GLUCOSE (U) >1000(A) NORMAL MG/DL 12/28/2024 6:55 PM CDT [facility] KETONES MG/DL (U) 20(A) NEGATIVE MG/DL 12/28/2024 6:55 PM T [facility] Comment: Successful Call: DANIEL called 12/28/2024 06:56 PM to EMERGENCY ROOM ([id number]/DAY, JD) by [id number]. UROBILINOGEN NORMAL NORMAL MG/DL 12/28/2024 6:55 PM CDT [facility] BILIRUBIN (U) NEGATIVE NEGATIVE MG/DL 12/28/2024 6:55 PM CDT [facility] BLOOD (U) 3+(A) NEGATIVE 12/28/2024 6:55 PM CDT [facility] MUCUS RARE /LPF 12/28/2024 6:55 PM CDT [facility] WBC/HPF 26(H) <6 /HPF 12/28/2024 6:55 PM CDT [facility] RBC/HPF >100(H) <6 /HPF 12/28/2024 6:55 PM CDT [facility] BACTERIA (U) RARE(A) NONE /HPF 12/28/2024 6:55 PM CDT [facility] SQUAMOUS EPITHELIALS RARE /HPF 12/28/2024 6:55 PM CDT [facility] URINE SPECIMEN OBTAINED BY CLEAN CATCH PROCEDURE / Unknown 12/28/2024 6:22 PM CDT Gregory Diaz MD URINE ORDERABLES Final Result [facility] [address] [place] [address], [place] [phone] * (ABNORMAL) COMPREHENSIVE METABOLIC PANEL (12/28/2024 6:22 PM CDT) Only the most recent of13 resultswithin the time period is included. GLUCOSE 228(H) 70 - 99 MG/DL 12/28/2024 7:15 PM CDT [facility] BUN 29(H) 7 - 18 MG/DL 12/28/2024 7:15 PM CDT [facility] CREATININE S/P/B 9.14(HH) 0.55 - 1.02 MG/DL 12/28/2024 7:15 PM CDT [facility] Comment: Critical Result(s) Called at: 19:14:15 on 12/28/2024 by: MARION CAPONE to and read back by:DESIREE INMAN SODIUM S/P/B 137 136 - 145 MMOL/L 12/28/2024 7:15 PM CDT [facility] POTASSIUM S/P/B 3.3(L) 3.5 - 5.1 MMOL/L 12/28/2024 7:15 PM CDT [facility] CHLORIDE S/P/B 105 97 - 115 MMOL/L 12/28/2024 7:15 PM CDT [facility] CO2 20.5(L) 21 - 32 MMOL/L 12/28/2024 7:15 PM CDT [facility] CALCIUM S/P/B 7.5(L) 8.5 - 10.1 MG/DL 12/28/2024 7:15 PM CDT [facility] BILIRUBIN TOTAL S/P/B 0.4 0.2 - 1.2 MG/DL 12/28/2024 7:15 PM CDT [facility] Comment: THIS ASSAY IS NOT RECOMMENDED FOR PATIENTS UNDERGOING TREATMENT WITH ELTROMBOPAG DUE TO THE POTENTIAL FOR FALSELY ELEVATED RESULTS. TOTAL PROTEIN S/P/B 6.7 6.4 - 8.2 G/DL 12/28/2024 7:15 PM CDT [facility] ALBUMIN S/P/B 2.9(L) 3.4 - 5.0 G/DL 12/28/2024 7:15 PM CDT [facility] AST 28 15 - 37 U/L 12/28/2024 7:15 PM CDT [facility] ALT 16 14 - 55 U/L 12/28/2024 7:15 PM CDT [facility] ALKALINE PHOSPHATASE S/P/B 159(H) 50 - 136 U/L 12/28/2024 7:15 PM CDT [facility] ANION GAP 11.5(H) 2 - 10 MMOL/L 12/28/2024 7:15 PM CDT [facility] BUN CREATININE RATIO 3.2(L) 6 - 26 12/28/2024 7:15 PM CDT [facility] A/G RATIO 0.8(L) 1.0 - 2.0 RATIO 12/28/2024 7:15 PM CDT [facility] GFR ESTIMATE 5(L) >90 ML/MIN/1.7 3 M2 12/28/2024 7:15 PM CDT [facility] Comment: NOTE: eGFR is not calculated for patients <18 years of age or gender unknown. This is an estimated GFR calculation using the new CKD EPI creatinine equation without race and so does not require a correction factor for race. This estimated GFR should not be used for calculating drug doses. 12/28/2024 6:22 PM CDT Gregory Diaz MD LABORATORY Final Result [facility] [address] [place] [address], * XR CHEST PORTABLE (12/28/2024 5:37 PM CDT) Only the most recent of6 resultswithin the time period is included. Anatomical Region Laterality Modality Chest Radiographic Michelle ging 12/28/2024 6:30 PM CDT Impressions 12/28/2024 6:30 PM CDT IMPRESSION: No acute cardiopulmonary process. Referred By: Interpreted By: Aaron Michele MD, 12/28/2024 6:30 PM Narrative 12/28/2024 6:30 PM CDT [facility] [address] [address] EXAM: XR CHEST PORTABLE INDICATION: Chest pain abdominal pain COMPARISON: Chest/abdomen/pelvis CTA, 17 Dec 2024 TECHNIQUE: Single frontal radiographic image of the chest FINDINGS: Infusion port in left chest wall, currently accessed, with IJ catheter tip near the superior cavoatrial junction. Right IJ tunneled dialysis catheter with tip in the right atrium. No pneumothorax, pleural effusion, or focal airspace consolidation. Pulmonary vasculature and cardiomediastinal silhouette within normal limits. No acute osseous abnormality. Cholecystectomy clips. Partially visualized gastric stimulator leads. Procedure Note Aaron Michele MD - 12/28/[address] [address] EXAM: XR CHEST PORTABLE INDICATION: Chest pain abdominal pain COMPARISON: Chest/abdomen/pelvis CTA, 17 Dec 2024 TECHNIQUE: Single frontal radiographic image of the chest FINDINGS: Infusion port in left chest wall, currently accessed, with IJ catheter tipnear the superior cavoatrial junction. Right IJ tunneled dialysis catheterwith tip in the right atrium. No pneumothorax, pleural effusion, or focalairspace consolidation. Pulmonary vasculature and cardiomediastinalsilhouette within normal limits. No acute osseous abnormality.Cholecystectomy clips. Partially visualized gastric stimulator leads. IMPRESSION: No acute cardiopulmonary process. Referred By: Interpreted By: Aaron Michele MD, 12/28/2024 6:30 PM Gregoyr Diaz MD GENERAL IMAGING Final Result * ECG 12 lead (12/28/2024 3:18 PM CDT) Only the most recent of8 resultswithin the time period is included. 12/28/2024 3:18 PM CDT Narrative [facility] - 12/29/2024 9:24 AM CDT [address] Test Date: 2024-12-28 Pat Name: LYNETTE ANGELA Department: 41 Room: RENZO Gender: Female [place] Lead: [id number] : 1995 Requested By: GREGORY DIAZ Order Number: [id number] Reading BEN Delacruz Measurements Intervals [place] Rate: 91 P: 20 VT: 169 QRS: 14 QRSD: 86 T: 41 QT: 397 QTc: 490 Interpretive Statements SINUS RHYTHM MODERATE VOLTAGE CRITERIA FOR LVH, CONSIDER NORMAL VARIANT [MEETS CRITERIA IN ONE OF: R(aVL), S(V1), R(V5), R(V5/V6)+S(V1)].prolonged QTc Compared to ECG 12/24/2024 18:57:55 Sinus tachycardia no longer present Preliminary EKG Interpretation by Gregory Diaz M.D. Procedure Note Dennis Delacruz MD - 12/29/[address] Test Date: 2024-12-28 Pat Name: LYNETTE ANGELA Department: 41 Room: RENZO Gender: Female [place] Lead: [id number] : 1995 Requested By: GREGORY DIAZ Order Number: [id number] Reading : Dennis Delacruz Measurements Intervals [place] Rate: 91 P: 20 VT: 169 QRS: 14 QRSD: 86 T: 41 QT: 397 QTc: 490 Interpretive Statements SINUS RHYTHM MODERATE VOLTAGE CRITERIA FOR LVH, CONSIDER NORMAL VARIANT [MEETSCRITERIA IN ONE OF: R(aVL), S(V1), R(V5), R(V5/V6)+S(V1)].prolonged QTc Compared to ECG 12/24/2024 18:57:55 Sinus tachycardia no longer present Preliminary EKG Interpretation by Gregory Diaz M.D. us Gregory Diaz MD ECG ORDERABLES Final Result [facility] * Qualitative HCG (12/28/2024 2:34 PM CDT) Only the most recent of4 resultswithin the time period is included. Pathologist [facility] PREG SCREEN-SERUM NEGATIVE 12/28/2024 5:10 PM CDT [facility] 12/28/2024 2:34 PM CDT Gregory Diaz MD LABORATORY Final Result [facility] [address] [place] [address], [place] [phone] * (ABNORMAL) CBC W/DIFF AUTOMATED (12/28/2024 2:34 PM CDT) Only the most recent of19 resultswithin the time period is included. [facility] WBC 5.75 4.5 - 11.0 x10'3/uL 12/28/2024 3:24 PM CDT [facility] RBC 3.92(L) 4.20 - 5.40 x10'6/uL 12/28/2024 3:24 PM CDT [facility] HGB 10.7(L) 12.0 - 16.0 G/DL 12/28/2024 3:24 PM CDT [facility] HCT 33.3(L) 38.0 - 48.0 % 12/28/2024 3:24 PM CDT [facility] MCV 84.9 81.0 - 99.0 FL 12/28/2024 3:24 PM CDT [facility] MCH 27.3 27.0 - 31.0 PG 12/28/2024 3:24 PM CDT [facility] MCHC 32.1 32.0 - 36.0 G/DL 12/28/2024 3:24 PM CDT [facility] RDW 14.0 11.5 - 14.5 % 12/28/2024 3:24 PM CDT [facility] PLT 258 130 - 400 x10'3/uL 12/28/2024 3:24 PM CDT [facility] MPV 10.7 9.3 - 12.2 FL 12/28/2024 3:24 PM CDT [facility] DIFFERENTIAL TYPE AUTOMATED DIFFERENTIAL 12/28/2024 3:24 PM CDT [facility] NEUTROPHILS % 70.2 % 12/28/2024 3:24 PM CDT [facility] LYMPHOCYTES % 22.3 % 12/28/2024 3:24 PM CDT [facility] MONOCYTES % 4.2 % 12/28/2024 3:24 PM CDT [facility] EOSINOPHILS 2.8 % 12/28/2024 3:24 PM CDT [facility] BASOPHILS 0.3 % 12/28/2024 3:24 PM CDT [facility] IMMATURE GRANS % 0.2 % 12/29/19 3:24 PM CDT [facility] ABS. NEUTROPHILS 4.04 1.80 - 7.70 x10'3/uL 12/28/2024 3:24 PM CDT [facility] ABS. LYMPHOCYTES 1.28 1.00 - 4.80 x10'3/uL 12/28/2024 3:24 PM CDT [facility] ABS. MONOCYTES 0.24 0.24 - 0.86 x10'3/uL 12/28/2024 3:24 PM CDT [facility] ABS. EOSINOPHILS 0.16 0.04 - 0.36 x10'3/uL 12/28/2024 3:24 PM CDT [facility] ABS. BASOPHILS 0.02 0.01 - 0.08 x10'3/uL 12/28/2024 3:24 PM CDT [facility] ABS. IMMATURE GRANULOCYTES 0.01 0.00 - 0.49 x10'3/uL 12/28/2024 3:24 PM CDT [facility] 12/28/2024 2:34 PM CDT us Gregory Diaz MD LABORATORY Final Result [facility] [address] [place] [address], [place] [phone] * TROPONIN, QUANT (12/28/2024 2:34 PM CDT) Only the most recent of9 resultswithin the time period is included. TROPONIN I HIGH SENSITIVITY 13 <54 ng/L 12/28/2024 3:17 PM CDT [facility] Comment: HIGH DOSES OF BIOTIN, TROPONIN-SPECIFIC AUTOANTIBODIES, AND ANTIBODY THERAPY CONTAINING HAMA MAY INTERFERE WITH THIS TEST RESULT. CORRELATION TO CLINICAL HISTORY AND PRESENTATION RECOMMENDED. 12/28/2024 2:34 PM CDT us Gregory Diaz MD LABORATORY Final Result Performing Organization Address City/[facility]/ZIP Co de Phone Number [facility] [address] [place] [address], [place] [phone] * (ABNORMAL) PHOSPHORUS, INORGANIC PHOSPHATE (12/28/2024 2:34 PM CDT) Only the most recent of4 resultswithin the time period is included. PHOSPHORUS 5.9(H) 2.5 - 4.9 MG/DL 12/28/2024 5:11 PM CDT [facility] 12/28/2024 2:34 PM CDT Gregory Diaz MD LABORATORY Final Result Performing Organization Address City/[facility] Co de Phone Number [facility] [address] [place] [address], [place] [phone] * MAGNESIUM (12/28/2024 2:34 PM CDT) Only the most recent of7 resultswithin the time period is included. MAGNESIUM 2.4 1.8 - 2.4 MG/DL 12/28/2024 5:11 PM CDT [facility] 12/28/2024 2:34 PM CDT Gregory Diaz MD LABORATORY Final Result Performing Organization Address [facility] Co de Phone Number [facility] [address] [place] [address], [place] [phone] * LIPASE (12/28/2024 2:34 PM CDT) Only the most recent of7 resultswithin the time period is included. LIPASE 34 13 - 75 UNITS/L 12/28/2024 3:17 PM CDT [facility] 12/28/2024 2:34 PM CDT us Gregory Diaz MD LABORATORY Final Result Performing Organization Address City/[facility] Co de Phone Number [facility] [address] [place] [address], [place] [phone] * Critical Care (12/24/2024 8:38 PM CDT) Narrative Starr Porter MD - 12/24/2024 8:38 PM CDT Starr Porter MD 12/24/2024 8:50 PM Critical Care Performed by: Starr Porter MD Authorized by: Starr Porter MD Critical care provider statement: Critical care time (minutes): 35 Critical care time was exclusive of: Separately billable procedures and treating other patients and teaching time Critical care was necessary to treat or prevent imminent or life-threatening deterioration of the following conditions: Renal failure (hyperglycemia, hypertensive urgency, esrd) Critical care was time spent personally by me on the following activities: Development of treatment plan with patient or surrogate, evaluation of patient's response to treatment, examination of patient, obtaining history from patient or surrogate, ordering and review of laboratory studies, ordering and performing treatments and interventions, re-evaluation of patient's condition and review of old charts I assumed direction of critical care for this patient from another provider in my specialty: no Comments: I attempted to address the patient's critically elevated hyperglycemia and hypertension. She has a complicated past medical history. However she is refusing treatment and is leaving AGAINST MEDICAL ADVICE. Starr Porter MD PROCEDURE/MINOR SURGI NICOLE ORDERABLES Final Result * (ABNORMAL) ARTERIAL BLOOD GAS (12/24/2024 8:04 PM CDT) PH ARTERIAL 7.41 7.35 - 7.45 12/24/2024 8:13 PM CDT [facility] PCO2 40.0 35 - 45 MMHG 12/24/2024 8:13 PM CDT [facility] PO2 94.0 83 - 108 MMHG 12/24/2024 8:13 PM CDT [facility] TOTAL CO2 ARTERIAL 26.6(H) 19.0 - 24.0 MMOL/L 12/24/2024 8:13 PM CDT [facility] BASE EXCESS 0.7 0.0 - 3.0 MMOL/L 12/24/2024 8:13 PM CDT [facility] O2 SATURATION 97 94.0 - 98.0 % 12/24/2024 8:13 PM CDT [facility] BICARB ARTERIAL 25.4 21.0 - 28.0 MMOL/L 12/24/2024 8:13 PM CDT [facility] RAJAN TEST POSITIVE 12/24/2024 8:10 PM CDT [facility] O2 ADMIN ARTERIAL 21 12/24/2024 8:10 PM CDT [facility] DRAW SITE ARTERIAL RT BRACH 12/24/2024 8:10 PM CDT [facility] 12/24/2024 8:04 PM CDT Starr Porter MD LABORATORY Final Result Performing Organization Address City/[facility]/ZIP Co de Phone Number [facility] [address] [place] [address], [place] [phone] * (ABNORMAL) BETA-HYDROXYBUTYRATE (12/24/2024 7:10 PM CDT) Only the most recent of6 resultswithin the time period is included. BETA-HYDROXYBU TYRATE 0.8(H) <0.6 MMOL/L 12/24/2024 7:55 PM CDT [facility] 12/24/2024 7:10 PM CDT Starr Porter MD LABORATORY Final Result Performing Organization Address City/[facility]/ZIP Co de Phone Number [facility] [address] [place] [address], [place] [phone] * XR ABD FLAT+UPRIGHT (12/18/2024 4:28 PM CDT) Anatomical Region Laterality Modality Abdomen Radiographic Michelle ging 12/18/2024 4:55 PM CDT Impressions 12/18/2024 4:58 PM CDT IMPRESSION: Nonobstructed gas pattern. No free air. Referred By: Interpreted By: Sampson Gustafson MD, 12/18/2024 4:55 PM Narrative 12/18/2024 4:58 [place] [address] EXAMINATION: XR ABD FLAT+UPRIGHT HISTORY: Vomiting, pain DATE: 12/18/2024 4:14 PM COMPARISON: September 28, 2022 TECHNIQUE: Supine and upright AP views of the abdomen. 3 images. FINDINGS: Nonobstructed gas pattern. Gastric stimulator device is noted. Mild gaseous distention of the stomach. Moderate amount of stool density. No acute osseous abnormality. No free air. Procedure Note Sampson Gustafson MD - 12/18/2024 [facility] [address] [place], [place] [id number] EXAMINATION: XR ABD FLAT+UPRIGHT HISTORY: Vomiting, pain DATE: 12/18/2024 4:14 PM COMPARISON: September 28, 2022 TECHNIQUE: Supine and upright AP views of the abdomen. 3 images. FINDINGS: Nonobstructed gas pattern. Gastric stimulator device is noted.Mild gaseous distention of the stomach. Moderate amount of stool density.No acute osseous abnormality. No free air. IMPRESSION: Nonobstructed gas pattern. No free air. Referred By: Interpreted By: Sampson Gustafson MD, 12/18/2024 4:55 PM Cristine Rey MD GENERAL IMAGING Final Result * (ABNORMAL) Blood gas, venous (12/18/2024 3:10 PM CDT) Only the most recent of6 resultswithin the time period is included. PH VENOUS 7.42 7.32 - 7.43 12/18/2024 3:21 PM CDT [facility] PCO2 VENOUS 33.0 MMHG 12/18/2024 3:21 PM CDT [facility] Comment:NO REFERENCE RANGE H BEEN ESTABLISHED PO2 VENOUS 75.0 MM HG 12/18/2024 3:21 PM CDT [facility] Comment:NO REFERENCE RANGE H BEEN ESTABLISHED TOTAL CO2 VENOUS 22.4 22.0 - 26.0 MMOL/L 12/18/2024 3:21 PM CDT [facility] BASE DEFICIT VENOUS 2.4 MMOL/L 12/18/2024 3:21 PM CDT [facility] Comment:NO REFERENCE RANGE H BEEN ESTABLISHED O2 SAT VENOUS 95 % 12/18/2024 3:21 PM CDT [facility] Comment:NO REFERENCE RANGE H BEEN ESTABLISHED BICARB VENOUS 21.4(L) 22.0 - 29.0 MMOL/L 12/18/2024 3:21 PM CDT [facility] O2 ADMIN VENOUS 21 3:21 PM CDT [facility] 12/18/2024 3:10 PM CDT Cristine Rey MD LABORATORY Final Result [facility] [address] [place] [address], * LACTIC ACID (12/18/2024 3:10 PM CDT) LACTIC ACID VENOUS 0.6 0.4 - 2.0 MMOL/L 12/18/2024 3:38 PM CDT [facility] 12/18/2024 3:10 PM CDT us Cristine Rey MD LABORATORY Final Result [facility] [address] [place] [address], [place] [phone] * CORONAVIRUS (COVID 19) (12/17/2024 6:02 PM CDT) CORONAVIRUS SARS COV 2 RNA NEGATIVE NEGATIVE 12/17/2024 6:37 PM CDT [facility] Comment: NEGATIVE RESULTS DO NOT RULE OUT COVID 19 AND SHOULD NOT BE USED THE SOLE BASIS FOR TREATMENT OR PATIENT MANAGEMENT DECISIONS, INCLUDING INFECTION CONTROL DECISIONS. NEGATIVE RESULTS SHOULD BE CONSIDERED IN THE CONTEXT OF A PATIENT'S RECENT EXPOSURES, HISTORY AND THE PRESENCE OF CLINICAL SIGNS AND SYMPTOMS CONSISTENT WITH COVID 19. THE ID NOW COVID-19 2.0 TEST HAS BEEN AUTHORIZED BY THE FDA UNDER EAU FOR USE BY AUTHORIZED LABORATORIES. PERFORMED BY NUCLEIC ACID AMPLIFICATION FOR MOLECULAR QUALITATIVE DETECTION OF SARS-COV-2. SPECIMEN TYPE NASAL 12/17/2024 6:05 PM CDT [facility] NASAL STRUCTURE / Unknown 12/17/2024 6:02 PM CDT Devyn Guadarrama DO MICROBIOLOGY - GENERAL ORDERAB LES Final Result [facility] [address] [place] [address], * INFLUENZA A & B (12/17/2024 6:01 PM CDT) [facility] SPECIMEN TYPE NASAL 12/17/2024 6:15 PM CDT [facility] INFLUENZA A NEGATIVE NEGATIVE 12/17/2024 6:38 PM CDT [facility] INFLUENZA B NEGATIVE NEGATIVE 12/17/2024 6:38 PM CDT [facility] Comment: Interpretation: Negative for Influenza A and B. A negative result does not exclude influenza virus infection. If influenza is circulating in your community, a diagnosis of influenza should be considered based on a patient's clinical presentation and empiric antiviral treatment should be considered, if indicated. If more conclusive testing is needed for hospitalized inpatients, follow-up confirmatory testing with RT-PCR requires a separate order. NASOPHARYNGEAL SWAB / Unknown 12/17/2024 6:01 PM CDT us Devyn Pelon Guadarrama DO MICROBIOLOGY - GENERAL ORDERAB LES Final Result [facility] [address] [place] [address], [place] [phone] * CTA CHEST+ABD+PEL (12/17/2024 5:57 PM CDT) Only the most recent of2 resultswithin the time period is included. Anatomical Region Laterality Modality Chest, Abdomen, Pelvis Computed Tomography 12/17/2024 7:19 PM CDT Impressions 12/17/2024 7:34 PM CDT IMPRESSION: 1. No evidence of aortic dissection or aneurysm. No evidence of pulmonary embolism. 2. Mildly improved consolidation in the left lower lobe compared to 11/30/2024 likely representing pneumonia. 3. Prominent mediastinal lymph nodes, decreased compared to 11/30/2024, likely reactive. 4. Additional findings as above. Referred By: Interpreted By: Porter Rolle MD, 12/17/2024 7:19 PM Narrative 12/17/2024 7:34 PM CDT [facility] [address] [place], [place] [address] EXAMINATION: CTA Chest, Abdomen and Pelvis with contrast EXAM DATE/TIME: 12/17/2024 5:19 PM REASON FOR EXAM: 29-year-old female, chest pain, radiates to back, hypertensive, shortness of breath, nausea and vomiting COMPARISON: CT abdomen pelvis 12/11/2024, chest x-ray 12/10/2024, chest abdomen pelvis CT 11/30/2024 TECHNIQUE: Axial CT images of the chest abdomen and pelvis were obtained following uneventful intravenous administration of 100 cc Isovue-370. Subsequent coronal and sagittal reformatted sequences are created for evaluation. In addition 3-D rotational MIP imaging of the thoracic, abdominal, and pelvic arterial vasculature was created on separate workstation for review. Automated exposure control was utilized for dose reduction. FINDINGS: No evidence of aortic dissection or aneurysm. No evidence of pulmonary embolism. Additional findings: Chest: Heart: No cardiomegaly. No pericardial effusion. Mediastinal/Lymph nodes: Prominent mediastinal lymph nodes, decreased compared to 11/30/2024. Lungs/Pleura: Mildly improved consolidation in the left lower lobe compared to CTA 11/30/2024. No pleural effusion. No pneumothorax. Musculoskeletal: No acute osseous findings. Abdomen/pelvis: Liver/biliary: The liver is mildly enlarged and smooth in surface contour. No focal liver lesion is seen. Gallbladder is absent. No biliary dilatation is seen. Pancreas/adrenals/spleen: Mild splenomegaly. Genitourinary: No hydronephrosis is seen. No renal mass lesion is seen. Urinary bladder is within normal limits. The uterus is unremarkable. Bowel: No bowel obstruction or inflammatory change is seen. No evidence of appendicitis. Peritoneum: No free air or free fluid is seen. Lymph nodes: No lymphadenopathy is seen. Musculoskeletal: No acute osseous findings. Stable mild height loss of the L3 superior endplate secondary to degenerative Schmorl's node. Procedure Note Porter Rolle MD - 12/17/[address] [address] EXAMINATION: CTA Chest, Abdomen and Pelvis with contrast EXAM DATE/TIME: 12/17/2024 5:19 PM REASON FOR EXAM: 29-year-old female, chest pain, radiates to back,hypertensive, shortness of breath, nausea and vomiting COMPARISON: CT abdomen pelvis 12/11/2024, chest x-ray 12/10/2024, chestabdomen pelvis CT 11/30/[address]: [address] images of the chest abdomen and pelvis were obtainedfollowing uneventful intravenous administration of 100 cc Isovue-370.Subsequent coronal and sagittal reformatted sequences are created forevaluation. In addition 3-D rotational MIP imaging of the thoracic,abdominal, and pelvic arterial vasculature was created on separateworkstation for review. Automated exposure control was utilized for dosereduction. FINDINGS: No evidence of aortic dissection or aneurysm. No evidence of pulmonaryembolism. Additional findings: Chest: Heart: No cardiomegaly. No pericardial effusion. Mediastinal/Lymph nodes: Prominent mediastinal lymph nodes, decreasedcompared to 11/30/2024. Lungs/Pleura: Mildly improved consolidation in the left lower lobecompared to CTA 11/30/2024. No pleural effusion. No pneumothorax. Musculoskeletal: No acute osseous findings. Abdomen/pelvis: Liver/biliary: The liver is mildly enlarged and smooth in surface contour.No focal liver lesion is seen. Gallbladder is absent. No biliarydilatation is seen. Pancreas/adrenals/spleen: Mild splenomegaly. Genitourinary: No hydronephrosis is seen. No renal mass lesion is seen.Urinary bladder is within normal limits. The uterus is unremarkable. Bowel: No bowel obstruction or inflammatory change is seen. No evidenceof appendicitis. Peritoneum: No free air or free fluid is seen. Lymph nodes: No lymphadenopathy is seen. Musculoskeletal: No acute osseous findings. Stable mild height loss ofthe L3 superior endplate secondary to degenerative Schmorl's node. IMPRESSION: 1. No evidence of aortic dissection or aneurysm. No evidence of pulmonaryembolism. 2. Mildly improved consolidation in the left lower lobe compared to11/30/2024 likely representing pneumonia. 3. Prominent mediastinal lymph nodes, decreased compared to 11/30/2024,likely reactive. 4. Additional findings as above. Referred By: Interpreted By: Porter Rolle MD, 12/17/2024 7:[address] Final Resul t * (ABNORMAL) POCT glucose (12/14/2024 3:45 PM CDT) Only the most recent of68 resultswithin the time period is included. GLUCOSE POC 256(H) 70 - 99 mg/dL 12/14/2024 4:01 PM CDT [facility] 12/14/2024 3:45 PM CDT Catherine Borja NP POCT ORDERABLES - DEVICE Marli lipscomb Result [facility] [address] [place] [address], [place] [phone] * (ABNORMAL) BASIC METABOLIC PANEL (12/14/2024 3:18 PM CDT) Only the most recent of20 resultswithin the time period is included. GLUCOSE 247(H) 70 - 99 MG/DL 12/14/2024 4:13 PM CDT [facility] BUN 18 7 - 18 MG/DL 12/14/2024 4:13 PM CDT [facility] CREATININE S/P/B 5.19(HH) 0.55 - 1.02 MG/DL 12/14/2024 4:13 PM CDT [facility] Comment:NOT CALLED PER CRITI NICOLE VALUE POLICY SODIUM S/P/B 135(L) 136 - 145 MMOL/L 12/14/2024 4:13 PM CDT [facility] POTASSIUM S/P/B 4.3 3.5 - 5.1 MMOL/L 12/14/2024 4:13 PM CDT [facility] CHLORIDE S/P/B 104 97 - 115 MMOL/L 12/14/2024 4:13 PM CDT [facility] CO2 25.1 21 - 32 MMOL/L 12/14/2024 4:13 PM CDT [facility] CALCIUM S/P/B 8.2(L) 8.5 - 10.1 MG/DL 12/14/2024 4:13 PM CDT [facility] ANION GAP 5.9 2 - 10 MMOL/L 12/14/2024 4:13 PM CDT [facility] BUN CREATININE RATIO 3.5(L) 6 - 26 12/14/2024 4:13 PM CDT [facility] GFR ESTIMATE 11(L) >90 ML/MIN/1.7 3 M2 12/14/2024 4:13 PM CDT [facility] Comment: NOTE: eGFR is not calculated for patients <18 years of age or gender unknown. This is an estimated GFR calculation using the new CKD EPI creatinine equation without race and so does not require a correction factor for race. This estimated GFR should not be used for calculating drug doses. 12/14/2024 3:18 PM CDT Catherine Borja NP LABORATORY Final Result [facility] [address] [place] [address], [place] [phone] * CT ABD+PEL W CON (12/11/2024 12:07 PM CDT) Anatomical Region Laterality Modality Abdomen Computed Tomogra phy 12/11/2024 12:2 8 PM CDT Impressions 12/11/2024 12:50 PM CDT Impression: 1. No convincing acute other significant localizing abdominal pelvic process, findings seen to provide a potential explanation for the patient's symptoms. 2. Nonspecific mild hepatomegaly 3. Left renal lower pole 1.6 cm indeterminate cortical lesion, potentially enhancing concerning for neoplasm, as discussed above. Recommend further evaluation with renal mass protocol CT or MRI. 4. Stable medial left lower lobe irregular opacity suggesting resolving consolidation. 5. Diffuse medium and small vessel arterial calcinosis. 6. Other nonemergent, incidental, stable and potential chronic findings as discussed in the report body above. Ordered By: BEVERLY WRIGHT Interpreted By: Lilo Scott MD, 12/11/2024 12:28 PM Narrative 12/11/2024 12:50 PM CDT [facility] [address] [place], [place] [address] Examination: CT abdomen and pelvis with IV contrast. Exam Date/Time: 12/11/2024 11:59 AM Indication: 29 female. Abdominal pain . History of perirectal abscess Comparison: CTA chest abdomen pelvis 11/30/2024. CT chest abdomen pelvis 09/21/2024 and multiple prior studies. Technique: Computed tomography of the abdomen and pelvis performed following uneventful intravenous administration of 100 mL Isovue-370 contrast. A dose lowering technique was used for this procedure, which may include, but is not limited to, dose reduction technique, automated exposure control, the use of iterative reconstruction, and ALARA (As Low As Reasonably Achievable) / Image Gently techniques. CT Findings: LOWER CHEST Normal cardiac size. No pericardial or pleural effusion. Stable medial left lower lobe irregular opacity that may represent resolving consolidation. No new lung base finding. UPPER ABDOMEN Liver and bile ducts: Stable nonspecific mild hepatomegaly. Left hepatic lobe hypertrophy. Left hepatic lobe subcentimeter hypodensity too small to characterize. No definite suspicious focal lesion. Hepatic and portal venous systems are patent. No intra or extra hepatic biliary tree dilatation. Gallbladder: Cholecystectomy Pancreas: Stable mild volume loss. No acute finding.. Spleen: Normal. RETROPERITONEUM Adrenals: Normal. Kidneys: Normal size contour and enhancement. Left renal anterior lower pole 1.6 cm cortically based lesion within attenuation of 43 Hounsfield units, potential enhancing on retrospective review of the prior study noncontrast images. 3 mm nonobstructing right renal stone. No other focal findings, collecting system obstruction or perinephric stranding Lymph nodes: No lymphadenopathy in the abdomen or pelvis. BOWEL AND PERITONEUM Bowel: Gastric stimulator leads present. Battery pack in the left anterior abdominal wall subcutaneous fat. Normal bowel caliber and thickness. Free air or fluid: None. VASCULATURE Unremarkable abdominal aorta without atherosclerosis or aneurysm. Mesenteric and visceral branches are patent. Diffuse medium and small vessel arterial calcinosis. PELVIS Nonenlarged anteverted uterus. Adnexa are within normal limits. Partially distended unremarkable urinary bladder. BONES/SOFT TISSUES L3 superior endplate degenerative Schmorl's node. Normal bone density. No concerning osteolytic or blastic lesion. Procedure Note Lilo Scott MD - 12/11/[address] [place], [place] [address] Examination: CT abdomen and pelvis with IV contrast. Exam Date/Time: 12/11/2024 11:59 AM Indication: 29 female. Abdominal pain . History of perirectal abscess Comparison: CTA chest abdomen pelvis 11/30/2024. CT chest abdomen pelvis09/21/2024 and multiple prior studies. Technique: Computed tomography of the abdomen and pelvis performedfollowing uneventful intravenous administration of 100 mL Isovue-370contrast. A dose lowering technique was used for this procedure, which mayinclude, but is not limited to, dose reduction technique, automatedexposure control, the use of iterative reconstruction, and ALARA (As LowAs Reasonably Achievable) / Image Gently techniques. CT Findings: LOWER CHEST Normal cardiac size. No pericardial or pleural effusion. Stable medialleft lower lobe irregular opacity that may represent resolvingconsolidation. No new lung base finding. UPPER ABDOMEN Liver and bile ducts: Stable nonspecific mild hepatomegaly. Left hepaticlobe hypertrophy. Left hepatic lobe subcentimeter hypodensity too small tocharacterize. No definite suspicious focal lesion. Hepatic and portalvenous systems are patent. No intra or extra hepatic biliary treedilatation. Gallbladder: Cholecystectomy Pancreas: Stable mild volume loss. No acute finding.. Spleen: Normal. RETROPERITONEUM Adrenals: Normal. Kidneys: Normal size contour and enhancement. Left renal anterior lowerpole 1.6 cm cortically based lesion within attenuation of 43 Hounsfieldunits, potential enhancing on retrospective review of the prior studynoncontrast images. 3 mm nonobstructing right renal stone. No other focalfindings, collecting system obstruction or perinephric stranding Lymph nodes: No lymphadenopathy in the abdomen or pelvis. BOWEL AND PERITONEUM Bowel: Gastric stimulator leads present. Battery pack in the left anteriorabdominal wall subcutaneous fat. Normal bowel caliber and thickness. Free air or fluid: None. VASCULATURE Unremarkable abdominal aorta without atherosclerosis or aneurysm.Mesenteric and visceral branches are patent. Diffuse medium and smallvessel arterial calcinosis. PELVIS Nonenlarged anteverted uterus. Adnexa are within normal limits. Partiallydistended unremarkable urinary bladder. BONES/SOFT TISSUES L3 superior endplate degenerative Schmorl's node. Normal bone density. Noconcerning osteolytic or blastic lesion. Impression: 1. No convincing acute other significant localizing abdominal pelvicprocess, findings seen to provide a potential explanation for thepatient's symptoms. 2. Nonspecific mild hepatomegaly 3. Left renal lower pole 1.6 cm indeterminate cortical lesion,potentially enhancing concerning for neoplasm, as discussed above.Recommend further evaluation with renal mass protocol CT or MRI. 4. Stable medial left lower lobe irregular opacity suggesting resolvingconsolidation. 5. Diffuse medium and small vessel arterial calcinosis. 6. Other nonemergent, incidental, stable and potential chronic findingsas discussed in the report body above. Ordered By: BEVERLY WRIGHT Interpreted By: Lilo Scott MD, 12/11/2024 12:28 PM Beverly Wright MD CT Final R esult * LACTIC ACID W REFLEX (SEPSIS) (12/10/2024 2:03 PM CDT) Only the most recent of3 resultswithin the time period is included. LACTIC ACID VENOUS 1.6 0.4 - 2.0 MMOL/L 12/10/2024 3:27 PM CDT [facility] 12/10/2024 2:03 PM CDT Parag Michaels PA-C LABORATORY Final Resul t [facility] [address] [place] [address], [place] [phone] * (ABNORMAL) TSH W/REFLEX (12/10/2024 2:03 PM CDT) TSH 7.600(H) 0.358 - 3.74 uIU/ML 12/10/2024 3:13 PM CDT [facility] Comment: HIGH DOSES OF BIOTIN MAY INTERFERE WITH THIS TEST RESULT. CORRELATION TO CLINICAL HISTORY AND PRESENTATION RECOMMENDED. 12/10/2024 2:03 PM CDT us Parag Michaels PA-C LABORATORY Final Resul t Performing Organization Address City/[facility] Co de Phone Number [facility] [address] [place] [address], [place] [phone] * PARTIAL THROMBOPLASTIN TIME,PTT (12/10/2024 2:03 PM CDT) PTT 34.8 25.1 - 36.5 SEC 12/10/2024 2:44 PM CDT [facility] 12/10/2024 2:03 PM CDT us Parag Michaels PA-C LABORATORY Final Resul t Performing Organization Address [facility] Co de Phone Number [facility] [address] [place] [address], [place] [phone] * PROTIME/INR, VENOUS (12/10/2024 2:03 PM CDT) PROTIME 11.3 10.2 - 12.9 SEC 12/10/2024 2:44 PM CDT [facility] INR 1.0 12/10/2024 2:44 PM CDT [facility] Comment: Recommended INR Therapeutic Goals: 2.0-3.0 Routine Therapy 2.5-3.5 Mechanical Prosthetic Valves (High Risk) 12/10/2024 2:03 PM CDT us Parag Michaels PA-C LABORATORY Final Resul t Performing Organization Address [facility] Co de Phone Number [facility] [address] [place] [address], [place] [phone] * THYROXINE, FREE (FT4) (12/10/2024 2:03 PM CDT) FREE T4 1.17 0.76 - 1.46 NG/DL 12/10/2024 3:28 PM CDT [facility] 12/10/2024 2:03 PM CDT Parag Michaels PA-C LABORATORY Final Resul t [facility] [address] [place] [address], * Complete PFT (pre/post Daljit, Lung Vol, Diff Capacity) ([id number], [id number], [id number], [id number]) (12/08/2024 2:00 PM CDT) Narrative [facility] - 12/08/2024 2:00 PM CDT Sahra Dominguez MD 12/13/2024 10:14 AM [facility] PULMONARY FUNCTION TESTS Lynette Angela 29-year-old Height 64 inches Weight 145 Lbs 12/13/2024 INTERPRETATION Please see technologist's comments. SPIROMETRY: Prebronchodilator FEV1 2.20 L, 68% predicted. FVC 2.55 L, 67% predicted. FEV1/FVC ratio 86% Postbronchodilator FEV1 2.23 L, 69% predicted. FVC 2.51 L, 66% predicted. FEV1/FVC ratio 89% There is No significant response to bronchodilator administration. Inspection of the patient's flow-volume loops shows normal configuration of the inspiratory and expiratory limbs LUNG VOLUMES: TLC 3.28 L, 64% predicted. RV 0.74 L, 64% predicted. DLCO: Diffusing capacity unadjusted for Hb and COHb is 50% 6-minute walk test: At rest on room air oxygen saturation was 99%. She walked 210 feet. Her lowest oxygen saturation was 96% IMPRESSION: Moderate restrictive ventilatory limitation Moderately reduced unadjusted DLCO There is no significant response to bronchodilator. This does not preclude the use of inhaled bronchodilator if clinically indicated 6-minute walk test without the need for supplemental oxygen Sahra Dominguez MD Sahra Dominguez MD PFT ORDERABLES Final Result Performing Organization Address [facility] Co de Phone Number [facility] [address] [place] [address], * Home O2 eval (12/08/2024 2:00 PM CDT) Narrative [facility] - 12/08/2024 2:00 PM CDT Sahra Dominguez MD 12/13/2024 10:14 AM [facility] PULMONARY FUNCTION TESTS Lynette Angela 29-year-old Height 64 inches Weight 145 Lbs 12/13/2024 INTERPRETATION Please see technologist's comments. SPIROMETRY: Prebronchodilator FEV1 2.20 L, 68% predicted. FVC 2.55 L, 67% predicted. FEV1/FVC ratio 86% Postbronchodilator FEV1 2.23 L, 69% predicted. FVC 2.51 L, 66% predicted. FEV1/FVC ratio 89% There is No significant response to bronchodilator administration. Inspection of the patient's flow-volume loops shows normal configuration of the inspiratory and expiratory limbs LUNG VOLUMES: TLC 3.28 L, 64% predicted. RV 0.74 L, 64% predicted. DLCO: Diffusing capacity unadjusted for Hb and COHb is 50% 6-minute walk test: At rest on room air oxygen saturation was 99%. She walked 210 feet. Her lowest oxygen saturation was 96% IMPRESSION: Moderate restrictive ventilatory limitation Moderately reduced unadjusted DLCO There is no significant response to bronchodilator. This does not preclude the use of inhaled bronchodilator if clinically indicated 6-minute walk test without the need for supplemental oxygen Sahra Dominguez MD Shellie Sanchez NP PFT ORDERABLES Final Result Performing Organization Address [facility] Co de Phone Number [facility] [address] [place] [address], [place] [phone] * PFT GENERIC (SCAN ORDER) (12/08/2024) 12/08/2024 [facility] Scanned SCANNING Final Resu lt * (ABNORMAL) LIPID PANEL (12/04/2024 11:58 AM CDT) CHOLESTEROL 109 <200 MG/DL 12/04/2024 12:39 PM CDT [facility] TRIGLYCERIDES 133 <150 MG/DL 12/04/2024 12:39 PM CDT [facility] HDL 31(L) >40.0 MG/DL 12/04/2024 12:39 PM CDT [facility] LDL (CALCULATED) 51 <100 MG/DL 12/05/19 25 12:39 PM CDT [facility] Comment:CALCULATED USING THE FRIEDEWALD EQUATION NON HDL CHOLESTEROL 78 <130 MG/DL 12/04 12:39 PM CDT [facility] CHOL/HDL RATIO 3.5 0.0 - 4.5 12/04/2024 12:39 PM CDT [facility] VLDL CALCULATION 27 5 - 55 MG/DL 12/04/2024 12:39 PM CDT [facility] LIPID INTERPRETATION 12/04/2024 12:39 PM CDT [facility] Comment: NIH CONCENSUS REPORT RECOMMENDATIONS: ADULT CHILD LOW RISK: CHOLESTEROL <200 <170 TRIGLYCERIDE <150 --- HDL >=60 --- LDL <100 <110 BORDERLINE: CHOLESTEROL 200-239 170-199 TRIGLYCERIDE 150-199 --- HDL 40-59 --- LDL 100-159 110-129 HIGH RISK: CHOLESTEROL >=240 >=200 TRIGLYCERIDE >=200 --- HDL <40 --- LDL >=160 >=130 12/04/2024 11:5 8 AM CDT us Magda Madsen DO LABORATORY Fin al Result [facility] [address] [place] [address], * CULTURE, BACTERIA, BLOOD (12/04/2024 4:00 AM CDT) Only the most recent of4 resultswithin the time period is included. SPEC DESCRIPTION BLOOD 12/04/2024 2:13 AM CDT [facility] SPECIAL REQUESTS NO SPECIAL REQUEST 12/04/2024 2:13 AM CDT [facility] CULTURE RESULT NO GROWTH 5 DAYS 12/09/2024 4:45 AM CDT [facility] BLOOD SPECIMEN OBTAINED FOR BLOOD CULTURE / Unknown 12/04/2024 4:00 AM CDT 12/04/2024 4:28 AM CDT Vee Buckner MD MICROBIOLOGY - GENERAL O RDERABLES Final Result Performing Organization Address City/[facility] Co de Phone Number [facility] [address] [place] [address], * (ABNORMAL) MRSA SCREENING (12/04/2024 2:30 AM CDT) Only the most recent of2 resultswithin the time period is included. SPEC DESCRIPTION NASAL 12/04/2024 2:36 AM CDT [facility] SPECIAL REQUESTS NO SPECIAL REQUEST 12/04/2024 2:36 AM CDT [facility] CULTURE RESULT METHICILLIN RESISTANT STAPHYLOCOCCUS AUREUS ISOLATED(AA) 12/05/2024 6:49 AM CDT [facility] CULTURE RESULT CALLED MRSA RESULT TO AND REPEATED BACK BY LYNETTE MIX RN AT [phone] DY 12/05/2024 6:49 AM CDT [facility] SPECIMEN FROM INTERNAL NOSE / Unknown 12/04/2024 2:30 AM CDT 12/04/2024 2:46 AM CDT Nadine Ayala DO MICROBIOLOGY - GENERAL ORDER SHABNAM Final Result Performing Organization Address [facility] Co de Phone Number [facility] [address] [place] [address], * URINE BACTERIA CULTURE (12/03/2024 11:50 PM CDT) SPEC DESCRIPTION URINE CLEAN CATCH 12/04/2024 2:12 AM CDT [facility] SPECIAL REQUESTS NO SPECIAL REQUEST 12/04/2024 2:12 AM CDT [facility] CULTURE RESULT POLYMICROBIAL GROWTH CONSISTENT WITH NORMAL GENITAL STEPHANIE. SUSCEPTIBILITIES NOT ROUTINELY PERFORMED. 12/05/2024 8:34 AM CDT [facility] URINE SPECIMEN OBTAINED BY CLEAN CATCH PROCEDURE / Unknown 12/03/2024 11:50 PM CDT 12/04/2024 2:49 AM CDT Vee Buckner MD MICROBIOLOGY - GENERAL O RDERABLES Final Result Performing Organization Address [facility] Co de Phone Number [facility] [address] [place] [address], * (ABNORMAL) HEMOGLOBIN, GLYCOSYLATED (11/24/2024 3:50 AM CDT) HGB A1C 9.2(H) <5.7 % 11/24/2024 4:47 AM CDT [facility] Comment: ADA GUIDELINES 2010 5.7 TO 6.4% INCREASED RISK OF DIABETES > OR = 6.5% CONSISTENT WITH DIABETES ESTIMATED AVG GLUCOSE 217 mg/dL 11/24/2024 4:47 AM CDT [facility] 11/24/2024 3:50 AM CDT Diaz Anthony MD LABORATORY Final Result [facility] [address] [place] [address], * RESPIRATORY PCR PANEL 2 (11/23/2024 12:15 PM CDT) ADENOVIRUS PCR (RESP) NOT DETECTED NOT DETECTED 11/23/2024 1:38 PM CDT [facility] CORONAVIRUS 229E PCR (RESP) NOT DETECTED NOT DETECTED 11/23/2024 1:38 PM CDT [facility] CORONAVIRUS HKU1 PCR (RESP) NOT DETECTED NOT DETECTED 11/23/2024 1:38 PM CDT [facility] CORONAVIRUS NL63 PCR (RESP) NOT DETECTED NOT DETECTED 11/23/2024 1:38 PM CDT [facility] CORONAVIRUS OC43 PCR (RESP) NOT DETECTED NOT DETECTED 11/23/2024 1:38 PM CDT [facility] METAPNEUMOVIRUS PCR (RESP) NOT DETECTED NOT DETECTED 11/23/2024 1:38 PM CDT [facility] RHINOVIRUS/ENTEROV IRUS PCR (RESP) NOT DETECTED NOT DETECTED 11/23/2024 1:38 PM CDT [facility] INFLUENZA A PCR (RESP) NOT DETECTED NOT DETECTED 11/23/2024 1:38 PM CDT [facility] INFLUENZA B PCR (RESP) NOT DETECTED NOT DETECTED 11/23/2024 1:38 PM CDT [facility] PARAINFLUENZA 1 PCR (RESP) NOT DETECTED NOT DETECTED 11/23/2024 1:38 PM CDT [facility] PARAINFLUENZA 2 PCR (RESP) NOT DETECTED NOT DETECTED 11/23/2024 1:38 PM CDT [facility] PARAINFLUENZA 3 PCR (RESP) NOT DETECTED NOT DETECTED 11/23/2024 1:38 PM CDT [facility] PARAINFLUENZA 4 PCR (RESP) NOT DETECTED NOT DETECTED 11/23/2024 1:38 PM CDT [facility] RSV PCR (RESP) NOT DETECTED NOT DETECTED 11/23/2024 1:38 PM CDT [facility] B PARAPERTUSIS PCR (RESP) NOT DETECTED NOT DETECTED 11/23/2024 1:38 PM CDT [facility] BORDETELLA PERTUSSIS PCR (RESP) NOT DETECTED NOT DETECTED 11/23/2024 1:38 PM CDT [facility] CHLAMYDOPHILA PNEUMONIAE PCR (RESP) NOT DETECTED NOT DETECTED 11/23/2024 1:38 PM CDT [facility] MYCOPLASMA PNEUMONIAE PCR (RESP) NOT DETECTED NOT DETECTED 11/23/2024 1:38 PM CDT [facility] CORONAVIRUS SARS COV 2 PCR (RESP) NOT DETECTED NOT DETECTED 11/23/2024 1:38 PM CDT [facility] NASOPHARYNGEAL SWAB / Unknown 11/23/2024 12:15 PM CDT Dania LEVINE MICROBIOLOGY - GENERAL OR DERABLES Final Result [facility] [address] [place] [address], [place] [phone] * (ABNORMAL) PROCALCITONIN (PCT) (11/23/2024 8:43 AM CDT) PROCALCITONIN 19.39(H) 0.00 - 0.49 NG/ML 11/23/2024 10:19 AM CDT [facility] 11/23/2024 8:43 AM CDT Dania Ram [facility] LABORATORY Final Res ult [facility] [address] [place] [address], [place] [phone] * Critical Care (11/23/2024 6:32 AM CDT) Narrative Julissa Lawson MD - 11/23/2024 6:32 AM CDT Julissa Lawson MD 11/23/2024 7:23 AM Critical Care Performed by: Julissa Lawson MD Authorized by: Julissa Lawson MD Critical care provider statement: Critical care time (minutes): 35 Critical care time was exclusive of: Separately billable procedures and treating other patients and teaching time Critical care was necessary to treat or prevent imminent or life-threatening deterioration of the following conditions: Endocrine crisis Critical care was time spent personally by me on the following activities: Development of treatment plan with patient or surrogate, discussions with consultants, evaluation of patient's response to treatment, examination of patient, obtaining history from patient or surrogate, ordering and performing treatments and interventions, ordering and review of laboratory studies, pulse oximetry, re-evaluation of patient's condition, review of old charts and ordering and review of radiographic studies Care discussed with: admitting provider Julissa Lawson MD PROCEDURE/MINOR SURGICAL ORDE RABLES Final Result * SURG XR BRONCHOSCOPY (11/21/2024 10:01 AM CDT) Narrative Radiology, Technologist - 11/21/2024 10:01 AM CDT This report does not contain a radiologist's interpretation. Please review associated procedure and/or operative report. Sahra Dominguez MD IMAGES ONLY Final Result * Bronchoscopy (11/21/2024 9:52 AM CDT) Narrative [facility] - 11/21/2024 9:52 AM CDT Sahra Dominguez MD 11/21/2024 9:55 AM [facility] Pulmonary Medicine Bronchoscopy Procedure Note: PreOp Diagnosis: LLL consolidation PostOp Diagnosis: LLL consolidation Pre-procedure verification: Prior to the procedure, the patient's identity was verified by full name, date of and medical record number. The patient's identity was verified on all pertinent medical records. Also prior to the procedure, a History and Physical was performed, and patient medications, allergies and sensitivities were reviewed. The patient's tolerance of previous anesthesia was reviewed. The risks and benefits of the procedure and the sedation options and risks were discussed with the patient. All questions were answered and informed consent was obtained. Time-out: Prior to the start of the procedure, the patient's identification, proposed procedure, accurate signed consent, correctly labeled images and records, and need for prophylactic antibiotics were verified by the physician, the nurse, the anesthesiologist and the locker attendant in the procedure room. Procedure(s): -Radial endobronchial ultrasound -Flexible fiberoptic bronchoscopy with bronchoalveolar lavage within the LLL -Flexible fiberoptic bronchoscopy with cytology brushing and microbrushing within the LLL -Flexible fiberoptic bronchoscopy with transbronchial forceps biopsy within the LLL Description: After obtaning informed consent, calling universal time out, and achieving adequate sedation with an 8.[address] the Olympus bronchoscope was introduced into the airway via the existing existing ETT. Airway surveillance was notable for no secretions. There were no endobronchial lesions observed. Within the superior segment of the left lower lobe there was significant edema/swelling of the airway wall which was causing stenosis of the airway. Radial EBUS was then introduced into the airways. Consolidated lung was confirmed via radial EBUS in both the superior segment of the left lower lobe as well as the posterior basal segment. Next, bronchoalveolar lavage was performed within the superior segment of the left lower lobe. 120 mL instilled with good return Next, micro brushing and cytology brushing both carried out within the superior segment of the left lower lobe. Microbrush was sent for aerobic, AFB, and fungal culture. Cytology were sent for cytology Lastly, transbronchial lung biopsies performed via forcep within the posterior basal segment of the left lower lobe. Sample sent for pathology as well as tissue culture. SNOMED CT(R) 1. Left lower lobe consolidation LUNG CONSOLIDATION 2. Preop examination PREPROCEDURAL EXAMINATION DONE Procedure: Equipment: Olympus Route: existing ETT Medications: Other General Findings: As above Outcome: Complications: None noted at time of procedures conclusion EBL: Scant Patient tolerated procedure well? Yes Sahra Dominguez MD Sahra Dominguez MD PFT ORDERABLES Final Result [facility] [address] [place] [address], * CULTURE, TB/AFB W/ STAIN (11/21/2024 9:42 AM CDT) Only the most recent of3 resultswithin the time period is included. SPECIMEN SOURCE LEFT LOWER LUNG 01/29/2025 11:58 AM CDT [facility] RESULT REPORT 11/23/2024 6:47 PM CDT [employer] [facility] Comment: Mycobacteria, Culture, with Fluorochrome Smear Mycobacteria Stn,AF,Fluor SOURCE : LLL LUNG BIOPSY Result/Comment: No acid-fast bacilli seen. Mycobacteria smear result should be used as an adjunct to culture in diagnosing mycobacterial disease (e.g. tuberculosis). If intended, please ensure an order for Mycobacteria (Rvim-Yyff-Ihxgcmk) culture has also been submitted. Acid Fast Culture SOURCE : LLL LUNG BIOPSY Result/Comment: No Mycobacterium species isolated after 6 weeks incubation. Test Performed by [employer] [employer] [employer] [facility] [place], [address] [place], [place] Tessa Fried M.D., Ph.D., Director of Laboratories , [place] [id number] REPORT STATUS FINAL 01/10/2025 9:06 AM CDT [employer] [facility] TISSUE LEFT LUNG STRUCTURE / Unknown 11/21/2024 9:42 AM CDT Sahra Dominguez MD MICROBIOLOGY - GENERAL ORDERAB LES Final Result Performing Organization Address City/[facility]/ZIP Co de Phone Number [employer] ELIJAH [address] [place], [place] , [place] [phone] [facility] [address] [place] [address], [place] [phone] * CULTURE, FUNGUS W/ STAIN (11/21/2024 9:42 AM CDT) Only the most recent of3 resultswithin the time period is included. SPEC DESCRIPTION LUNG,LEFT 11/21/2024 9:52 AM CDT [facility] SPECIAL REQUESTS NO SPECIAL REQUEST 11/21/2024 9:52 AM CDT [facility] STAIN RESULT: NO YEAST OR FUNGAL ELEMENTS SEEN 11/21/2024 2:45 PM CDT [facility] CULTURE RESULT NO FUNGUS ISOLATED AT 4 WEEKS. 12/23/2024 5:34 PM CDT [facility] TISSUE LEFT LUNG STRUCTURE / Unknown 11/21/2024 9:42 AM CDT Sahra Dominguez MD MICROBIOLOGY - GENERAL ORDERAB LES Final Result [facility] [address] [place] [address], [place] [phone] * CULTURE, TISSUE W/GRAM STAIN (11/21/2024 9:42 AM CDT) SPEC DESCRIPTION LUNG,LEFT 11/21/2024 9:52 AM CDT [facility] SPECIAL REQUESTS NO SPECIAL REQUEST 11/21/2024 9:52 AM CDT [facility] GRAM STAIN RESULT NO WHITE BLOOD CELLS SEEN 11/21/2024 2:44 PM CDT [facility] GRAM STAIN RESULT NO ORGANISMS SEEN 11/21/2024 2:44 PM CDT [facility] CULTURE RESULT NO GROWTH 3 DAYS 11/24/2024 7:39 AM CDT [facility] TISSUE LEFT LUNG STRUCTURE / Unknown 11/21/2024 9:42 AM CDT Sahra Dominguez MD MICROBIOLOGY - GENERAL ORDERAB LES Final Result Performing Organization Address City/[facility]/ZIP Co de Phone Number [facility] [address] [place] [address], [place] [phone] * CULTURE LOWER RESPIRATORY W/GRAM STAIN (11/21/2024 9:30 AM CDT) Only the most recent of2 resultswithin the time period is included. SPEC DESCRIPTION BRONCHIAL BRUSHING,LT 11/21/2024 9:52 AM CDT [facility] SPECIAL REQUESTS NO SPECIAL REQUEST 11/21/2024 9:52 AM CDT [facility] GRAM STAIN RESULT NO WHITE BLOOD CELLS SEEN 11/21/2024 2:44 PM CDT [facility] GRAM STAIN RESULT NO ORGANISMS SEEN 11/21/2024 2:44 PM CDT [facility] CULTURE RESULT NO GROWTH 2 DAYS 11/23/2024 12:16 PM CDT [facility] RESPIRATORY (BRONCHIAL BRUSHING, LT) 11/21/2024 9:30 AM CDT Sahra Dominguez MD MICROBIOLOGY - GENERAL ORDERAB LES Final Result [facility] [address] [place] [address], [place] [phone] * CELL COUNT W/ DIFF BODY FLUID (11/21/2024 9:27 AM CDT) SOURCE (FLUID) BRONCHOALVEO LAVAGE,LT 11/21/2024 9:52 AM CDT [facility] VOLUME (FLUID) 40.0 mL 11/21/2024 11:25 AM CDT [facility] COLOR (FLUID) CLEAR 11/21/2024 11:25 AM CDT [facility] TURBIDITY COLORLESS 11/21/2024 11:25 AM CDT [facility] RBC (FLUID) 19 CELLS/UL 11/21/2024 11:25 AM CDT [facility] Comment: The reference range and other method performance specifications have not been established for this assay on body fluids. The test result should be integrated into the clinical context for interpretation and utilized in comparison to blood concentrations of the analyte as appropriate. TOTAL NUCLEATED CELL COUNT 0 CELLS/UL 11/21/2024 11:25 AM CDT [facility] Comment: The reference range and other method performance specifications have not been established for this assay on body fluids. The test result should be integrated into the clinical context for interpretation and utilized in comparison to blood concentrations of the analyte as appropriate. RESPIRATORY (BRONCHOALVEO LAVAGE, LT) 11/21/2024 9:27 AM CDT us Sahra Dominguez MD BODY FLUIDS AND STOOLS ORDERAB LES Final Result [facility] [address] [place] [address], * CYTOLOGY GENERIC (11/21/2024 12:00 AM CDT) CYTOLOGY OTHER [facility] Department of Laboratory Medicine [address] [place] [address] , extension [phone] Pathology Report Non-gynecologic Cytology Report Name: LYNETTE ANGELA Specimen #: [id number] Age: 2 1995 (Age: 29) Location: [facility] Sex: F Procedure Date: 11/21/2024 [facility] #: [id number] Date Received: 11/22/2024 Date Reported: 11/23/2024 Provider: SAHRA DOMINGUEZ MD Source: A: LUNG, LEFT LOWER LOBE, BRONCHOALVEOLAR LAVAGE B: LUNG, LEFT LOWER LOBE, BRONCHIAL BRUSHING Clinical History: LLL Lung consolidation. Correlate with [id number] FINAL DIAGNOSIS: A. Lung, left lower lobe, bronchoalveolar lavage, cytologic preparation: - Satisfactory for evaluation. - Negative for malignant cells. B. Lung, left lower lobe, bronchial brushing, cytologic preparation: - Satisfactory for evaluation. - Negative for malignant cells. Gross Description: A. LLL BAL SPECIMEN RECEIVED: 28 cc's of clear mucoid fluid SLIDES PREPARED: 1 ThinPrep, all slides were microscopically examined by a pathologist. STAINS: Papanicolaou B. LLL Bronchial brush SPECIMEN RECEIVED: 1 unsheathed brush in cytology fixative SLIDES PREPARED: 1 ThinPrep, all slides were microscopically examined by a pathologist. STAINS: Papanicolaou Initial cytologic screening, interpretation, and sign out were performed at [facility], [address] [place] [address]. Electronically Signed Out TESSA REARDON MD [facility] RESPIRATORY (BRONCHOALVEO LAVAGE, LT) 11/21/2024 9:27 AM CDT Specimen from respiratory system (specimen) (BRONCHIAL BRUSHING, LT) 11/21/2024 9:33 AM CDT us Sahra Dominguez MD PATHOLOGY/CYTOLOGY ORDERABLES Final Result [facility] [address] [place] [address], [phone] * Pathology (11/21/2024 12:00 AM CDT) PATHOLOGY [facility] Department of Laboratory Medicine [address] [place] [address] , extension [phone] Pathology Report Surgical Pathology Report Name: LYNETTE ANGELA Specimen #: [id number] Age: 2 1995 (Age: 29) Location: [facility] Sex: F Procedure Date: 11/21/2024 Hospital #: [id number] Date Received: 11/22/2024 Date Reported: 11/24/2024 Provider: SAHRA DOMINGUEZ MD Source: Lung, left lower lobe, biopsy Clinical History: Left lower lobe consolidation. FINAL DIAGNOSIS: Lung, left lower lobe, transbronchial biopsy: - Nonnecrotizing granulomatous inflammation. Diagnosis Comment: The biopsy contains a focal nonnecrotizing granuloma. There is no malignancy identified. GMS stain is negative for fungal organisms. AFB stain is negative for acid-fast organisms. The finding raises the possibility of sarcoidosis. An underlying infectious etiology cannot be excluded. Clinical correlation is required. Gross Description: Received in formalin, labeled with a patient label and as transbronchial left lower lobe biopsies are 4 pieces of pink-soliman tissue ranging from 0.1 to 0.2 cm. The specimen is entirely submitted in cassette 1. Gross examination (when applicable), interpretation, and sign out were performed at [facility], [address] [place] [address]. All immunohistochemical and histochemical tests were developed by and performed at [facility], [address] [place] [address]. All tests reported here have not been cleared or approved by the U.S. Food and Drug Administration (FDA). This laboratory is regulated under CLIA as qualified to perform high-complexity testing. These tests are used for clinical purposes. They should not be regarded as investigational or for research. Positive and negative controls show appropriate reactivity. Electronically Signed Out TESSA REARDON MD [facility] TISSUE LEFT LUNG STRUCTURE / Unknown 11/21/2024 9:40 AM CDT us Sahra Dominguez MD PATHOLOGY/CYTOLOGY ORDERABLES Final Result [facility] [address] [place] [address], [phone] * XR FOOT RT 3V (11/16/2024 10:59 AM CDT) Anatomical Region Laterality Modality Foot Radiographic Michelle ging 11/21/2024 3:54 PM CDT Impressions 11/21/2024 3:58 PM CDT IMPRESSION: 1. No acute osseous abnormality. 2. 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 CT could be considered for more definitive evaluation of preoperative planning. Referred By: Interpreted By: Abel Cisneros MD, 11/21/2024 3:54 PM Narrative 11/21/2024 3:58 PM [address]T [address] [address] Examination: XR ANKLE RT M3V, XR FOOT RT 3V Exam time: 11/16/2024 10:34 AM Indication: Crushing injury to the right foot and ankle about 1.5 years ago. Evaluation for possible corrective surgery. Comparison: None available. Technique: 3 views of the foot and ankle, 6 images. Findings: No evidence of acute fracture or dislocation. There are chronic appearing fracture deformities of the distal tibia and fibula with resultant degenerative changes of the tibiotalar joint. There is a small ankle joint effusion. Arterial vascular calcifications can be seen throughout the foot, atypical for a patient of this age. Probable old fracture deformity of the first proximal phalanx. There is also significant abnormalities involving the distal ends of the medial and intermediate cuneiforms with deficiency of the distal articular surface which appears notably irregular suggestive of significant posttraumatic osteoarthritis. There is also a prominent dorsal ossification at this location suggestive of a possibly partially fused fracture fragment. Procedure Note Abel Cisneros MD - 11/21/[address] [address] Examination: XR ANKLE RT M3V, XR FOOT RT 3V Exam time: 11/16/2024 10:34 AM Indication: Crushing injury to the right foot and ankle about 1.5 yearsago. Evaluation for possible corrective surgery. Comparison: None available. Technique: 3 views of the foot and ankle, 6 images. Findings: No evidence of acute fracture or dislocation. There are chronicappearing fracture deformities of the distal tibia and fibula withresultant degenerative changes of the tibiotalar joint. There is a smallankle joint effusion. Arterial vascular calcifications can be seenthroughout the foot, atypical for a patient of this age. Probable oldfracture deformity of the first proximal phalanx. There is alsosignificant abnormalities involving the distal ends of the medial andintermediate cuneiforms with deficiency of the distal articular surfacewhich appears notably irregular suggestive of significant posttraumaticosteoarthritis. There is also a prominent dorsal ossification at thislocation suggestive of a possibly partially fused fracture fragment. IMPRESSION: 1. No acute osseous abnormality. 2. Chronic appearing fracture deformities involving the distal fibula,distal tibia, distal aspect of the first proximal phalanx, and the distalaspects of the medial and intermediate cuneiforms with findings suggestiveof associated posttraumatic osteoarthritis. CT could be considered formore definitive evaluation of preoperative planning. Referred By: Interpreted By: Abel Cisneros MD, 11/21/2024 3:54 PM Edgardo Aldridge MD GENERAL IMAGING Final Result * XR ANKLE RT M3V (11/16/2024 10:59 AM CDT) Anatomical Region Laterality Modality Ankle Radiographic Michelle ging 11/21/2024 3:54 PM CDT Impressions 11/21/2024 3:58 PM CDT IMPRESSION: 1. No acute osseous abnormality. 2. 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 CT could be considered for more definitive evaluation of preoperative planning. Referred By: Interpreted By: Abel Cisneros MD, 11/21/2024 3:54 PM Narrative 11/21/2024 3:58 PM [address]T [address] [address] Examination: XR ANKLE RT M3V, XR FOOT RT 3V Exam time: 11/16/2024 10:34 AM Indication: Crushing injury to the right foot and ankle about 1.5 years ago. Evaluation for possible corrective surgery. Comparison: None available. Technique: 3 views of the foot and ankle, 6 images. Findings: No evidence of acute fracture or dislocation. There are chronic appearing fracture deformities of the distal tibia and fibula with resultant degenerative changes of the tibiotalar joint. There is a small ankle joint effusion. Arterial vascular calcifications can be seen throughout the foot, atypical for a patient of this age. Probable old fracture deformity of the first proximal phalanx. There is also significant abnormalities involving the distal ends of the medial and intermediate cuneiforms with deficiency of the distal articular surface which appears notably irregular suggestive of significant posttraumatic osteoarthritis. There is also a prominent dorsal ossification at this location suggestive of a possibly partially fused fracture fragment. Procedure Note Abel Cisneros MD - 11/21/[address] [address] Examination: XR ANKLE RT M3V, XR FOOT RT 3V Exam time: 11/16/2024 10:34 AM Indication: Crushing injury to the right foot and ankle about 1.5 yearsago. Evaluation for possible corrective surgery. Comparison: None available. Technique: 3 views of the foot and ankle, 6 images. Findings: No evidence of acute fracture or dislocation. There are chronicappearing fracture deformities of the distal tibia and fibula withresultant degenerative changes of the tibiotalar joint. There is a smallankle joint effusion. Arterial vascular calcifications can be seenthroughout the foot, atypical for a patient of this age. Probable oldfracture deformity of the first proximal phalanx. There is alsosignificant abnormalities involving the distal ends of the medial andintermediate cuneiforms with deficiency of the distal articular surfacewhich appears notably irregular suggestive of significant posttraumaticosteoarthritis. There is also a prominent dorsal ossification at thislocation suggestive of a possibly partially fused fracture fragment. IMPRESSION: 1. No acute osseous abnormality. 2. Chronic appearing fracture deformities involving the distal fibula,distal tibia, distal aspect of the first proximal phalanx, and the distalaspects of the medial and intermediate cuneiforms with findings suggestiveof associated posttraumatic osteoarthritis. CT could be considered formore definitive evaluation of preoperative planning. Referred By: Interpreted By: Abel Cisneros MD, 11/21/2024 3:54 PM Edgardo Aldridge MD GENERAL IMAGING Final Result * CT CHEST WO CON (11/11/2024 11:16 AM CDT) Anatomical Region Laterality Modality Chest Computed Tomogra phy 11/12/2024 8:15 AM CDT Impressions 11/12/2024 8:22 AM CDT IMPRESSION: 1. Minimally decreased prominence of consolidative opacity in the superior and medial basilar left lower lobe segments. Reticular opacities in the lower lobes are also decreased in prominence compared to the prior examination. Findings are compatible with improving pneumonia. Would consider ongoing follow-up until resolution or stability has been achieved. 2. Mediastinal adenopathy that is likely reactive. 3. Atherosclerotic calcifications of the visualized visceral arteries. Referred By: SAHRA DOMINGUEZ Interpreted By: Broderick Blue DO, 11/12/2024 8:15 AM Narrative 11/12/2024 8:22 AM CDT [address] [address] EXAMINATION: CT CHEST WO CON EXAM DATE: 11/11/2024 11:07 AM CLINICAL HISTORY: Left upper lobe pneumonia. COMPARISON: CTA chest 10/19/2024, CT chest, abdomen, and pelvis 09/21/2024, and chest radiographs 10/17/2024 and 09/24/2024. TECHNIQUE: Axial unenhanced CT of the chest was performed. Coronal and sagittal reformatted images were obtained and reviewed. A radiation dose lowering technique was used for this procedure, which may include, but is not limited to, dose reduction technique, automated exposure control, the use of iterative reconstruction, ALARA (As Low As Reasonably Achievable) techniques, and Image Gently techniques. FINDINGS: MEDIASTINUM: The heart is normal in size without pericardial effusion. The thoracic aorta is normal in caliber. There is a left anterior chest wall internal jugular approach port with the distal tip in the upper superior vena cava. There is also a right internal jugular approach central venous catheter with the tip in the right atrium. There are prominent lymph nodes in the superior mediastinum, predominantly on the left, measuring up to 12 mm short axis appearing similar to the prior examination. No internal mammary chain or axillary adenopathy is seen. PLEURAL SPACES: There is no pleural effusion or pneumothorax. LUNGS: There is persistent consolidative opacity in the superior segment and medial basilar segment of the left lower lobe that appears minimally decreased in prominence compared to the prior examination. Reticular opacities in the basilar left lower lobe and medial basilar right lower lobe are also decreased in prominence compared to the prior examination. ABDOMEN: The gallbladder is surgically absent. There are atherosclerotic calcifications of the visualized visceral arteries. MUSCULOSKELETAL: There is no destructive osseous lesion. Procedure Note Broderick Blue DO - 11/12/[address] [address] EXAMINATION: CT CHEST WO CON EXAM DATE: 11/11/2024 11:07 AM CLINICAL HISTORY: Left upper lobe pneumonia. COMPARISON: CTA chest 10/19/2024, CT chest, abdomen, and pelvis 09/21/2024,and chest radiographs 10/17/2024 and 09/24/2024. TECHNIQUE: Axial unenhanced CT of the chest was performed. Coronal andsagittal reformatted images were obtained and reviewed. A radiation doselowering technique was used for this procedure, which may include, but isnot limited to, dose reduction technique, automated exposure control, theuse of iterative reconstruction, ALARA (As Low As Reasonably Achievable)techniques, and Image Gently techniques. FINDINGS: MEDIASTINUM: The heart is normal in size without pericardial effusion. The thoracicaorta is normal in caliber. There is a left anterior chest wall internaljugular approach port with the distal tip in the upper superior vena cava.There is also a right internal jugular approach central venous catheterwith the tip in the right atrium. There are prominent lymph nodes in thesuperior mediastinum, predominantly on the left, measuring up to 12 mmshort axis appearing similar to the prior examination. No internalmammary chain or axillary adenopathy is seen. PLEURAL SPACES: There is no pleural effusion or pneumothorax. LUNGS: There is persistent consolidative opacity in the superior segment andmedial basilar segment of the left lower lobe that appears minimallydecreased in prominence compared to the prior examination. Reticularopacities in the basilar left lower lobe and medial basilar right lowerlobe are also decreased in prominence compared to the prior examination. ABDOMEN: The gallbladder is surgically absent. There are atheroscleroticcalcifications of the visualized visceral arteries. MUSCULOSKELETAL: There is no destructive osseous lesion. IMPRESSION: 1. Minimally decreased prominence of consolidative opacity in thesuperior and medial basilar left lower lobe segments. Reticular opacitiesin the lower lobes are also decreased in prominence compared to the priorexamination. Findings are compatible with improving pneumonia. Wouldconsider ongoing follow-up until resolution or stability has beenachieved. 2. Mediastinal adenopathy that is likely reactive. 3. Atherosclerotic calcifications of the visualized visceral arteries. Referred By: SAHRA DOMINGUEZ Interpreted By: Broderick Blue DO, 11/12/2024 8:15 AM Sahra Dominguez MD CT Final Result * HEPATITIS PANEL,ACUTE (08/27/2024 9:41 AM CDT) HEPATITIS B SURFACE AG NON-REACTI VE NON-REACTI VE 08/27/2024 12:38 PM CDT [facility] HEP B CORE IGM NON-REACTI VE NON-REACTI VE 08/27/2024 12:38 PM CDT [facility] HAV IGM NON-REACTI VE NON-REACTI VE 08/27/2024 12:38 PM CDT [facility] HEPATITIS C AB NON-REACTI VE NON-REACTI VE 08/27/2024 12:38 PM CDT [facility] 08/27/2024 9:41 AM CDT Lily Louis MD LABORATORY Final Result [facility] [address] [place] [address], from Last 3 Months or Most Recently Relevant to Health Maintenance Additional Health Concerns Infection Onset Date Last Indicated MRSA Comment:04/27/23 +MRSA Urine 10/23/23 +MRSA from [facility]. Added from external infection. Source: [facility]. 02/09/24 +MRSA Nares from [facility]. 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 09/23/2024 09/23/2024 Insurance MEDICARE MEDICAID Advance Directives Documents on File Type Date Recorded Patient General Surgery Physician Assistant Expl anation DNR (Do Not Resuscitate) Documentation 09/13/2024 9:32 AM * Full Code (Latest Code Status on File) Date Activated Date Inactivated Comments 12/10/2024 7:42 PM 12/14/2024 6:56 PM * Full Code Date Activated Date Inactivated Comments 12/04/2024 2:10 AM 12/06/2024 4:07 PM * Full Code Date Activated Date Inactivated Comments 11/30/2024 11:54 AM 12/01/2024 5:15 PM * Full Code Date Activated Date Inactivated Comments 10/19/2024 1:36 AM 10/24/2024 5:04 PM * Full Code Date Activated Date Inactivated Comments 09/18/2024 8:32 AM 10/16/2024 6:48 PM Care Teams Hogshead Filler Relationship Specialty Start Date End Date Edgardo Aldridge MD [address] [facility] [address] [place] [address] PCP - General FAMILY PRACTICE 07/03/24 Keely Ugalde, MANAGER BRAND [address] [place] [address] PCP - Hospice Attending 10/06/24 Keely Ugalde, TAMARA [address] [place] [address] Nurse Practitioner PALLIATIVE CARE 10/09/24 Odilon Tellez MD [address] [facility] [address] [address] Consulting Physician NEPHROLOGY 11/17/24 Sahra Dominguez MD [address] [address] Consulting Physician Internal Medicine Pulmonary Disease 11/17/24 Young Vasquez MD [address] [facility] [address] [place] [address] GASTROENTEROLOGY 11/17/24 Andrei Chaves MD [address] [place] [address] SURGERY 11/17/24
--- OUTSIDE RECORDS SUMMARY | 2025-01-29 15:19 | XMS_ITS | Encounter Summary ---
Author Organization [facility] Facility Care Team Providers Care Hydrochloric Acid Operator Name Role Phone Unknown, Notinfile Primary Care Provider Unavail able Lay Villalta MD Primary Care Provider [phone] Tremayne Kebede MD Unavailable [phone] Georgia Mcbride BURNER MACHINE OPERATOR Unavailable [phone] Miscellaneous, Not In File Unavailable Unava ilable Eun Camacho Primary Care Provider + Cony Pemberton GRANULIZING MACHINE OPERATOR Unavailable [phone] Antonette Vernon RN Unavailable [phone] Andrei Chaves MD PhD Unavailable [phone] Olivia Phelps MD Unavailable [phone] Edgardo Aldridge MD Primary Care Provider [phone] Odilon Tellez MD Unavailable [phone] Miscellaneous, Not In File Unavailable Unava ilable Ct Boggs GRANULIZING MACHINE OPERATOR Unavailable [phone] Odilon Tellez MD Unavailable [phone] Tracey Felix RN Unavailable [phone] Ayaka Thomas MD Unavailable [phone] Yumi Jones NP Unavailable [phone] TosinRogersRuthy GRANULIZING MACHINE OPERATOR Unavailable Unavaila ble Feli Boggs RN Unavailable [phone] Mendel Bowling RN Unavailable [phone] [facility] Unavailable Mendel Bowling RN Unavailable [phone] Odilon Tellez MD Unavailable [phone] Mavis Barahona RN Unavailable [phone] Mahnaz Garcia RN Unavailable [phone] Jaimie Glez RN Unavailable [phone] Encounter Details Date Type Department Care Team (Latest Contact Info) Description 04/07/2016 Orders Only [facility] CLINCONV Provider, MD [facility] [address] [place] [address] Social History Tobacco Use Types Packs/Day Years Used Date Smoking Tobacco: Never Comments Unknown Sex and Gender Information Value Date Recorded Sex Assigned at Not on file Legal Sex Female 9:16 AM POWER BENDER OPERATOR Gender Identity Not on file Sexual Orientation Not on file documented as of this encounter Plan of Treatment Not on file documented as of this encounter Procedures Procedure Name Priority Date/Time Associated Diagnosis Comments CARDIOLOGY REPORT 04/07/2016 12: 00 AM POWER BENDER OPERATOR documented in this encounter Results * CARDIOLOGY REPORT (04/07/2016 12:00 AM POWER BENDER OPERATOR) Anatomical Region Laterality Modality Other Narrative 04/07/2016 12:00 AM POWER BENDER OPERATOR Ordered by an unspecified provider. Historical [...] CDT COVID19 02/02/2020 02/02/2020 02/19/2020 3:05 AM POWER BENDER OPERATOR COVID: Recovered Comment:Added based on recent [...] COVID: Suspected 06/15/2023 06/15/2023 06/15/2023 5:53 PM POWER BENDER OPERATOR C. difficile suspected 06/24/2023 06/24/202306/26 6:03 AM CDT COVID: Suspected 06/27/2023 06/27/2023 06/27/2023 7:07 PM CDT COVID: Suspected 07/10/2023 07/10/2023 07/10/2023 6:50 AM CDT COVID: Suspected 07/13/2023 07/13/2023 07/13/2023 9:45 PM CDT MRSA Comment:MRSA Isolation Intermediate 06/21/24 10/23/2023 02/09/2024 06/21/2024 6:[address] C. 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 Source: [facility]. 08/20/2024 Carbapenemase, Unspecified Comment:Added from external infection. Source: [facility]. Kleb pneumo KPC 09/23/2024 10/31/2024 3:07 PM C DT CP-PRINTING WORKER SUPERVISOR Comment:Added from external infection. Source: [facility]. Kleb pneumo KPC 10/31/2024 10/31/2024 documented as of this encounter Care Teams Hydrochloric Acid Operator Relationship Specialty Start Date End Date Unknown, Notinfile PCP - General 12/28/16 08/23/18 Lay Villalta MD PCP - General Family Medicine 08/24/18 07/17/21 Eun Camacho PA PCP - General Family Medicine 07/18/21 03/08/23 Edgardo Aldridge MD [address] [facility] [address] [place] [address] PCP - General Family Medicine 04/02/23 Tremayne Kebede MD Consulting Physician Gastroenterology 02/05/20 3 Georgia Mcbride LPN [address] [place] [address] [address] [place] [address] ACO Care Tool Engineer 11/28/20 12/19/20 Miscellaneous, Not In File 07/17/21 03/16/23 Cony Pemberton, [facility] [address] [facility] ([facility] Mailstop [phone] [place] [address] SHOP Outpatient Chemist Intern 12/07/22 12/07/22 Antonette Vernon, KADY [address] [place] [address] SHOP Outpatient Chemist Intern 12/08/22 01/05/23 Andrei Chaves MD PhD [address] [facility] [address] [place] [address] Referring Physician General Surgery 03/17/23 Olivia Phelps MD [address] [place], [place] [address] Consulting Physician Nephrology 03/17/23 Odilon Tellez MD [address] [place], [place] [address] Consulting Physician Nephrology 05/01/23 12/04/24 Miscellaneous, Not In File 07/08/23 01/24/24 Ct Boggs, [facility] [address] [facility] ([facility]) Mailstop [phone] [place] [address] SHOP Outpatient Chemist Intern 07/09/23 08/05/23 Odilon Tellez MD [address] [place], [place] [address] Referring Physician Nephrology 11/12/23 Tracey Felix, KADY [address] [place] [address] Night Monitor 11/12/23 11/17/23 Ayaka Thomas MD [address] [facility] [address] [place] [address] Fellow Internal Medicine 12/17/23 Yumi Jones NP [address] [facility] [address] [place] [address] Nurse Practitioner Hospice and Palliative Medicine 08/16/23 Ruthy Leahy LCSW Chief Executive 12/31/23 02/22/24 Feli Boggs, KADY [address] [place] [address] [address] [place] [address] All Around Presser 12/31/23 01/02/24 Mendel Bowling, KADY [address] [place] [address] [address] [place] [address] All Around Presser 01/03/24 03/23/24 Leslie Baptiste, [address] [place] [address] Pharmacist Pharmacy 01/13/24 02/03/24 Mendel Bowling, KADY [address] [place] [address] [address] [place] [address] All Around Presser 11/07/24 01/04/25 Odilon Tellez MD [address] [facility] [address] [place] [address] Consulting Physician Nephrology 12/05/24 Mavis Barahona, KADY [address] [facility] [address] [place] [address] Night Monitor 12/20/24 01/08/25 Mahnaz Garcia, KADY [address] [place] [address] [address] [place] [address] All Around Presser 01/15/25 01/15/25 Jaimie Glez RN [address] [place] [address] [address] [place] [address] All Around Presser 01/29/25 documented as of this encounter
--- OUTSIDE RECORDS SUMMARY | 2025-01-29 15:20 | XMS_ITS | Clinical Summary ---
Author Organization [facility] Address [address] [place] [address] Care Team Providers [facility] Name Role Phone Andrei Chaves MD PhD Unavailable [phone] Olivia Phelps MD Unavailable [phone] Edgardo Aldridge MD Primary Care Provider [phone] Odilon Tellez MD Unavailable [phone] Ayaka Thomas MD Unavailable [phone] Yumi Jones NP Unavailable [phone] Odilon Tellez MD Unavailable [phone] Jaimie Glez RN Unavailable [phone] Allergies Active Allergy Reactions Criticality Noted Date Comments Adhesive Rash Medium 03/11/2017 Adhesive Tape-Silicones Rash Medium 03/11/2017 Hydralazine Anaphylaxis,Hives ,Swelling,Angioed gauri,Urticaria High 06/29/2018 Hives on face and was not able to swallow Metoclopramide Other (See comments),Muscle pain High 03/29/2020 Uncontrolled movements; Extrapyramidal symptoms Trimethobenzamide Swelling Medium 01/11/2024 Medications blood-glucose meter,continuous (Dexcom G6 Bill Adjuster) miscIndications:Unc ontrolled type 1 diabetes mellitus with hyperglycemia, with long-term current use of insulin ([facility]) 1 Dexcom G6 Bill Adjuster 1 each 023 Active OneTouch Delica Plus Lancet 33 gauge misc Use to test BG 4x/day 100 each Active OneTouch Verio Flex meter misc Use as directed to check BG 1 each Active insulin syringe-needle U-100 (BD Insulin Syringe Ultra-Fine) 0.3 mL 31 gauge x 5/16 syringe Use to inject insulin 4 times per day as back up to insulin pump. 100 each Active insulin syr/ndl U100 half sharlene 0.3 mL 31 gauge x 15/64 syringe Use as directed 3 times a day 50 each 1 Active alcohol swabs (Alcohol Wipes) pads, medicated Use as directed. 100 each 024 Active escitalopram (LEXAPRO) 10 mg tablet Take 1 tablet (10 mg total) by mouth daily 90 tablet 3 024 2024 Active losartan (COZAAR) 100 mg tablet [...] capsule Active blood-glucose sensor (Dexcom G6 Sensor) deviceIndications:U ncontrolled type 1 diabetes mellitus with hyperglycemia, with long-term current use of insulin (HCC) Will use 1 sensor every 10 days. 1 box = 3 sensors. 3 each Active blood-glucose transmitter (Dexcom G6 Transmitter) deviceIndications:U ncontrolled type 1 diabetes mellitus with hyperglycemia, with long-term current use of insulin (HCC) Will use 1 transmitter every 90 days 1 each 3 Active amLODIPine (NORVASC) 10 mg tablet Take 1 tablet (10 mg total) by mouth daily 30 tablet Active diphenhydrAMINE 25 mg capsule Take 1 tablet/capsule (25 mg total) by mouth every 6 (six) hours as needed for itching or other (nausea) Active isosorbide mononitrate ER (IMDUR) 30 mg 24 hr tablet Take 1 tablet (30 mg total) by mouth daily Active ondansetron ODT (ZOFRAN-ODT) 4 mg disintegrating tablet Take 1 tablet (4 mg total) by mouth every 8 (eight) hours as needed for nausea or vomiting Active ramelteon (ROZEREM) 8 mg tablet Take 1 tablet (8 mg total) by mouth nightly as needed for sleep Active prochlorperazine (COMPAZINE) 5 mg tablet Take 1 tablet (5 mg total) by mouth every 6 (six) hours as needed for nausea or vomiting Active OneTouch Verio test strips strip Use as directed up to four times a day. 100 each Active acetaminophen 500 mg capsule Take 1 capsule (500 mg total) by mouth every 6 (six) hours as needed for pain or fever Active polyethylene glycol (MIRALAX) 17 gram packet Take 1 packet (17 g total) by mouth daily as needed for constipation Active ammonium lactate (LAC-HYDRIN) 12 % lotion Apply topically 2 (two) times a day 400 g 1 Active insulin lispro (HumaLOG, ADMELOG) 100 unit/mL vial for injection Inject 0-4 Units under the skin nightly 2025 Active pen needle, diabetic (Pen Needle) 32 gauge x 5/32 needle Use as directed once a day. 100 each Active OneTouch Verio test strips strip Use as directed up to four times a day. 100 each Active glucagon (Gvoke HypoPen 2-Pack) 1 mg/0.2 mL auto-injector Inject 1 mg under the skin as directed by provider for low blood sugar. Active insulin lispro (HumaLOG, ADMELOG) 100 unit/mL vial for injectionIndication s:Diabetes Mellitus Inject 3 Units under the skin every 4 (four) hours 10 mL 2025 Active gabapentin (NEURONTIN) solution 250 mg/5 mL Administer 2 mL (100 mg total) per tube 3 (three) times a day 180 mL 2025 Active pantoprazole (PROTONIX) [address] for susp in packet Administer 1 packet (40 mg total) per feeding tube 2 (two) times a day 60 packet Active metoprolol tartrate (LOPRESSOR) 100 mg tablet Take 1 tablet (100 mg total) by mouth 2 (two) times a day 60 tablet 2025 Active sevelamer (RENVELA) 800 mg tabletIndications:R enal Osteodystrophy with Hyperphosphatemia Take 1 tablet (800 mg total) by mouth 3 (three) times a day with meals 90 tablet 2025 Active insulin lispro (HumaLOG, ADMELOG) 100 unit/mL vial for injectionIndication s:Diabetes Mellitus Inject 2 Units under the skin every 4 (four) hours Starting with tube feeds until 4 hours before tube feeds end 3.6 mL Active insulin lispro (HumaLOG, ADMELOG) 100 unit/mL vial for injection Inject 0-5 Units under the skin 3 (three) times a day with meals Inject 1 unit for every 15 grams carbohydrate eaten 10 mL 2025 Active insulin glargine (LANTUS) 100 unit/mL (3 mL) pen for injection Inject 18 Units under the skin daily 15 mL 2 Active gabapentin (NEURONTIN) 100 mg capsule Take 1 capsule (100 mg total) by mouth 3 (three) times a day 270 capsule 3 024 2024 Discontinued( Stop Taking at Discharge) lidocaine (LIDODERM) 5 % Place 3 patches on the skin daily for 12 hours Remove & discard patch within 12 hours or as directed by . 30 patch 2024 Discontinued( Therapy completed) pantoprazole DR (PROTONIX) 40 mg EC tablet Take 1 tablet (40 mg total) by mouth 2 (two) times a day 60 tablet 025 2024 Discontinued( Duplicate order) doxazosin (CARDURA) 8 mg tablet Take 1 tablet (8 mg total) by mouth nightly 30 tablet 025 2024 Discontinued( Therapy completed) insulin lispro (HumaLOG, ADMELOG) 100 unit/mL pen for injection Inject 10 Units under the skin 3 (three) times a day with meals 9 mL 025 2024 Discontinued( Stop Taking at Discharge) insulin glargine 100 unit/mL (3 mL) pen for injection Inject 20 Units under the skin daily 6 mL 2024 Discontinued( Stop Taking at Discharge) metoprolol XL (TOPROL-XL) 200 mg extended release tablet Take 1 tablet (200 mg total) by mouth daily 30 tablet 2024 Discontinued( Duplicate order) Saccharomyces boulardii (FLORASTOR) 250 mg capsule Take 1 capsule (250 mg total) by mouth 2 (two) times a day 2024 Discontinued( Therapy completed) cholestyramine (QUESTRAN) 4 gram packet Take 1 packet by mouth daily 2024 Discontinued( Therapy completed) L.acidoph-B.animali s-B.longum 15 billion cell capsule Take 1 capsule by mouth claims account manager before breakfast 2024 Discontinued( Therapy completed) albuterol 2.5 mg /3 mL (0.083 %) nebulizer solution Take 3 mL (2.5 mg total) by nebulization every 4 (four) hours as needed for wheezing 2024 Discontinued( Therapy completed) furosemide (LASIX) 40 mg tablet Take 1 tablet (40 mg total) by mouth 2 (two) times a day Indications: Fluid Overload Two times daily on Wednesday Discontinued( Therapy completed) insulin NPH (HumuLIN N, NovoLIN N) 100 unit/mL vial for injection Inject 15 Units under the skin with evening meal 2024 Discontinued( Stop Taking at Discharge) insulin NPH (HumuLIN N, NovoLIN N) 100 unit/mL vial for injection Inject 12 Units under the skin every morning 2024 Discontinued( Stop Taking at Discharge) buprenorphine (SUBUTEX) 2 mg tablet, sublingual Place 0.5 tablets (1 mg total) under the tongue every 8 (eight) hours as needed 2024 Discontinued insulin glargine 100 unit/mL (3 mL) pen for injection Inject under the skin 3 times daily 2024 Discontinued( Duplicate order) naloxone (NARCAN) 4 mg/actuation spray,non-aerosol Administer 1 spray into affected nostril(s) as needed 2024 Discontinued NovoLIN N 100 unit/mL (3 mL) pen for injection TAKE 15 UNITS OF NPH IN THE MORNING WITH BREAKFAST AND 10 UNITS IN THE EVENING WITH DINNER 2024 Discontinued( Duplicate order) oxyCODONE (ROXICODONE) solution 5 mg/5 mL TAKE 5 MLS BY MOUTH EVERY 6 (SIX) HOURS NEEDED FOR ACUTE PAIN < 3 DAY SUPPLY 2024 Discontinued( Therapy completed) buprenorphine-nalox one (SUBOXONE) 2-0.5 mg [address] tablet Place 1 mg under the tongue every 8 hours 2024 Discontinued( Therapy completed) HYDROcodone-acetami nophen (NORCO) 5-325 mg per tablet Take 1 tablet by mouth 2024 Discontinued( Therapy completed) pantoprazole DR (PROTONIX) 40 mg EC tablet Take 1 tablet (40 mg total) by mouth 2 (two) times a day 2024 Discontinued( Stop Taking at Discharge) metoprolol XL (TOPROL-XL) 200 mg extended release tablet Take 1 tablet (200 mg total) by mouth daily 2024 Discontinued( Stop Taking at Discharge) insulin lispro (HumaLOG, ADMELOG) 100 unit/mL vial for injection Inject 0-5 Units under the skin 3 (three) times a day with meals 2024 Discontinued insulin lispro (HumaLOG, ADMELOG) 100 unit/mL vial for injectionIndication s:Diabetes Mellitus Inject 6 Units under the skin every 4 (four) hours 2024 Discontinued insulin glargine (LANTUS) 100 unit/mL (3 mL) pen for injection Inject 30 Units under the skin daily 15 mL 2 2024 Discontinued insulin glargine (LANTUS) 100 unit/mL (3 mL) pen for injection Inject 20 Units under the skin daily 15 mL 2 025 2024 Discontinued insulin glargine (LANTUS) 100 unit/mL (3 mL) pen for injection Inject 20 Units under the skin daily 15 mL 2 025 2024 Discontinued Active Problems Problem Noted Date Diagnosed Date Malingering 01/20/2025 Assessment & Plan (01/26/2025 7:31 AM CDT): Concern for secondary gain based on interaction 01/19/2025. Patient was informed of goal to escalate TF from 20 -> 45ml/hr overnight and discharge. Patient says that someone from her outpatient GI team saw her, told her to stay at 30ml/hr for 2+ days (through weekend) and escalate to 45ml/hr on Wednesday. No documentation exists of this interaction. If this interaction occurred, it would have been unprofessional for an outpatient provider to drive inpatient care without documentation. Patient also has said she pushed meds through her tube (her jejunal tube has an order for no crushed meds as they would be ineffective). Would clarify, but taken together, there is some concern for secondary gain amidst expedited outpatient titration of current tube feeds (she has some oral intake by mouth, tube feeds are supposed to be supplement, not definitive nutrition). - patient appealing discharge (favored medically ready 01/21). Assessment & Plan (01/25/2025 12:34 PM CDT): Concern for secondary gain based on interaction 01/19/2025. Patient was informed of goal to escalate TF from 20 -> 45ml/hr overnight and discharge. Patient says that someone from her outpatient GI team saw her, told her to stay at 30ml/hr for 2+ days (through weekend) and escalate to 45ml/hr on Wednesday. No documentation exists of this interaction. If this interaction occurred, it would have been unprofessional for an outpatient provider to drive inpatient care without documentation. Patient also has said she pushed meds through her tube (her jejunal tube has an order for no crushed meds as they would be ineffective). Would clarify, but taken together, there is some concern for secondary gain amidst expedited outpatient titration of current tube feeds (she has some oral intake by mouth, tube feeds are supposed to be supplement, not definitive nutrition). - patient appealing discharge (favored medically ready 01/21). Assessment & Plan (01/24/2025 8:48 AM CDT): Concern for secondary gain based on interaction 01/19/2025. Patient was informed of goal to escalate TF from 20 -> 45ml/hr overnight and discharge. Patient says that someone from her outpatient GI team saw her, told her to stay at 30ml/hr for 2+ days (through weekend) and escalate to 45ml/hr on Wednesday. No documentation exists of this interaction. If this interaction occurred, it would have been unprofessional for an outpatient provider to drive inpatient care without documentation. Patient also has said she pushed meds through her tube (her jejunal tube has an order for no crushed meds as they would be ineffective). Would clarify, but taken together, there is some concern for secondary gain amidst expedited outpatient titration of current tube feeds (she has some oral intake by mouth, tube feeds are supposed to be supplement, not definitive nutrition). - patient appealing discharge (favored medically ready 01/21). Assessment & Plan (01/23/2025 3:57 PM CDT): Concern for secondary gain based on interaction 01/19/2025. Patient was informed of goal to escalate TF from 20 -> 45ml/hr overnight and discharge. Patient says that someone from her outpatient GI team saw her, told her to stay at 30ml/hr for 2+ days (through weekend) and escalate to 45ml/hr on Wednesday. No documentation exists of this interaction. If this interaction occurred, it would have been unprofessional for an outpatient provider to drive inpatient care without documentation. Patient also has said she pushed meds through her tube (her jejunal tube has an order for no crushed meds as they would be ineffective). Would clarify, but taken together, there is some concern for secondary gain amidst expedited outpatient titration of current tube feeds (she has some oral intake by mouth, tube feeds are supposed to be supplement, not definitive nutrition). - patient appealing discharge (favored medically ready 01/21). Assessment & Plan (01/22/2025 3:45 PM CDT): Concern for secondary gain based on interaction 01/19/2025. Patient was informed of goal to escalate TF from 20 -> 45ml/hr overnight and discharge. Patient says that someone from her outpatient GI team saw her, told her to stay at 30ml/hr for 2+ days (through weekend) and escalate to 45ml/hr on Wednesday. No documentation exists of this interaction. If this interaction occurred, it would have been unprofessional for an outpatient provider to drive inpatient care without documentation. Patient also has said she pushed meds through her tube (her jejunal tube has an order for no crushed meds as they would be ineffective). Would clarify, but taken together, there is some concern for secondary gain amidst expedited outpatient titration of current tube feeds (she has some oral intake by mouth, tube feeds are supposed to be supplement, not definitive nutrition). - patient appealing discharge (favored medically ready 01/21). Unclear if patient's insurance allows appeals as she has reached her Medicare limit for the year (unclear if going into lifetime coverage or of other insurance coverage). Assessment & Plan (01/21/2025 12:36 PM CDT): Concern for secondary gain based on interaction 01/19/2025. Patient was informed of goal to escalate TF from 20 -> 45ml/hr overnight and discharge. Patient says that someone from her outpatient GI team saw her, told her to stay at 30ml/hr for 2+ days (through weekend) and escalate to 45ml/hr on Wednesday. No documentation exists of this interaction. If this interaction occurred, it would have been unprofessional for an outpatient provider to drive inpatient care without documentation. Patient also has said she pushed meds through her tube (her jejunal tube has an order for no crushed meds as they would be ineffective). Would clarify, but taken together, there is some concern for secondary gain amidst expedited outpatient titration of current tube feeds (she has some oral intake by mouth, tube feeds are supposed to be supplement, not definitive nutrition). - patient appealing discharge 01/21 Assessment & Plan (01/20/2025 11:11 AM CDT): Concern for secondary gain based on interaction 01/19/2025. Patient was informed of goal to escalate TF from 20 -> 45ml/hr overnight and discharge. Patient says that someone from her outpatient GI team saw her, told her to stay at 30ml/hr for 2+ days (through ) and escalate to 45ml/hr on Wednesday. No documentation exists of this interaction. If this interaction occurred, it would have been unprofessional for an outpatient provider to drive inpatient care without documentation. Patient also has said she pushed meds through her tube (her jejunal tube has an order for no crushed meds as they would be ineffective). Would clarify, but taken together, there is some concern for secondary gain amidst expedited outpatient titration of current tube feeds (she has some oral intake by mouth, tube feeds are supposed to be supplement, not definitive nutrition). Gastrojejunal (GJ) tube in place 01/20/2025 Assessment & Plan (01/26/2025 7:31 AM CDT): Hx GJ tube (G for venting, J for feeds). Per pharmacist consult, extended release meds are absolutely not ok via J-tube, but some meds may be safe with careful consideration listed below. Based on frequency of tube clogging while inpatient, suspect patient should avoid meds via tube, but technically may consider below adjustments in the outpatient setting. - amlodipine, escitalopram, losartan, metoprolol tartrate can be crushed and given to J-tube ONLY IF CRUSHED TO FINE POWDER + SUSPENDED IN AT LEAST 1 OZ WATER, with thorough tube flush after. - sevelamer has powder form, consider at discharge - protonix has powder packets and oral suspension, consider at discharge Assessment & Plan (01/25/2025 12:34 PM CDT): Hx GJ tube (G for venting, J for feeds). Per pharmacist consult, extended release meds are absolutely not ok via J-tube, but some meds may be safe with careful consideration listed below. Based on frequency of tube clogging while inpatient, suspect patient should avoid meds via tube, but technically may consider below adjustments in the outpatient setting. - amlodipine, escitalopram, losartan, metoprolol tartrate can be crushed and given to J-tube ONLY IF CRUSHED TO FINE POWDER + SUSPENDED IN AT LEAST 1 OZ WATER, with thorough tube flush after. - sevelamer has powder form, consider at discharge - protonix has powder packets and oral suspension, consider at discharge Assessment & Plan (01/24/2025 8:48 AM CDT): Hx GJ tube (G for venting, J for feeds). Per pharmacist consult, extended release meds are absolutely not ok via J-tube, but some meds may be safe with careful consideration listed below. Based on frequency of tube clogging while inpatient, suspect patient should avoid meds via tube, but technically may consider below adjustments in the outpatient setting. - amlodipine, escitalopram, losartan, metoprolol tartrate can be crushed and given to J-tube ONLY IF CRUSHED TO FINE POWDER + SUSPENDED IN AT LEAST 1 OZ WATER, with thorough tube flush after. - sevelamer has powder form, consider at discharge - protonix has powder packets and oral suspension, consider at discharge Assessment & Plan (01/23/2025 3:57 PM CDT): Hx GJ tube (G for venting, J for feeds). Per pharmacist consult, extended release meds are absolutely not ok via J-tube, but some meds may be safe with careful consideration listed below. Based on frequency of tube clogging while inpatient, suspect patient should avoid meds via tube, but technically may consider below adjustments in the outpatient setting. - amlodipine, escitalopram, losartan, metoprolol tartrate can be crushed and given to J-tube ONLY IF CRUSHED TO FINE POWDER + SUSPENDED IN AT LEAST 1 OZ WATER, with thorough tube flush after. - sevelamer has powder form, consider at discharge - protonix has powder packets and oral suspension, consider at discharge Assessment & Plan (01/22/2025 3:45 PM CDT): Hx GJ tube (G for venting, J for feeds). Per pharmacist consult, extended release meds are absolutely not ok via J-tube, but some meds may be safe with careful consideration listed below. Based on frequency of tube clogging while inpatient, suspect patient should avoid meds via tube, but technically may consider below adjustments in the outpatient setting. - amlodipine, escitalopram, losartan, metoprolol tartrate can be crushed and given to J-tube ONLY IF CRUSHED TO FINE POWDER + SUSPENDED IN AT LEAST 1 OZ WATER, with thorough tube flush after. - sevelamer has powder form, consider at discharge - protonix has powder packets and oral suspension, consider at discharge Assessment & Plan (01/21/2025 12:36 PM CDT): Hx GJ tube (G for venting, J for feeds). Per pharmacist consult, extended release meds are absolutely not ok via J-tube, but some meds may be safe with careful consideration listed below. May consider on an outpatient basis. - amlodipine, escitalopram, losartan, metoprolol tartrate can be crushed and given to J-tube ONLY IF CRUSHED TO FINE POWDER + SUSPENDED IN AT LEAST 1 OZ WATER, with thorough tube flush after. - sevelamer has powder form, consider at discharge - protonix has powder packets and oral suspension, consider at discharge Assessment & Plan (01/20/2025 6:39 PM CDT): Hx GJ tube (G for venting, J for feeds). Per pharmacist consult, extended release meds are absolutely not ok via J-tube, but some meds may be safe with careful consideration listed below. May consider on an outpatient basis. - amlodipine, escitalopram, losartan, metoprolol tartrate can be crushed and given to J-tube ONLY IF CRUSHED TO FINE POWDER + SUSPENDED IN AT LEAST 1 OZ WATER, with thorough tube flush after. - sevelamer has powder form - protonix has powder packets and oral suspension Renal cyst 01/16/2025 Assessment & Plan (01/26/2025 7:31 AM CDT): Incidental CT finding of increased size and possible hemorrhage of prior cyst in R kidney, consider outpatient followup (e.g. renal US). Assessment & Plan (01/25/2025 12:34 PM CDT): Incidental CT finding of increased size and possible hemorrhage of prior cyst in R kidney, consider outpatient followup (e.g. renal US). Assessment & Plan (01/24/2025 8:48 AM CDT): Incidental CT finding of increased size and possible hemorrhage of prior cyst in R kidney, consider outpatient followup (e.g. renal US). Assessment & Plan (01/23/2025 3:57 PM CDT): Incidental CT finding of increased size and possible hemorrhage of prior cyst in R kidney, consider outpatient followup (e.g. renal US). Assessment & Plan (01/22/2025 3:45 PM CDT): Incidental CT finding of increased size and possible hemorrhage of prior cyst in R kidney, consider outpatient followup (e.g. renal US). Assessment & Plan (01/21/2025 12:36 PM CDT): Incidental CT finding of increased size and possible hemorrhage of prior cyst in R kidney, consider outpatient followup (e.g. renal US). Assessment & Plan (01/20/2025 11:11 AM CDT): Incidental CT finding of increased size and possible hemorrhage of prior cyst in R kidney, consider outpatient followup (e.g. renal US). Assessment & Plan (01/19/2025 1:46 PM CDT): Incidental CT finding of increased size and possible hemorrhage of prior cyst in R kidney, consider outpatient followup (e.g. renal US). Assessment & Plan (01/18/2025 1:59 PM CDT): Incidental CT finding of increased size and possible hemorrhage of prior cyst in R kidney, consider outpatient followup (e.g. renal US). Assessment & Plan (01/17/2025 11:49 AM CDT): Incidental CT finding of increased size and possible hemorrhage of prior cyst in R kidney, consider outpatient followup (e.g. renal US). Assessment & Plan (01/16/2025 1:57 PM CDT): Incidental CT finding of increased size and possible hemorrhage of prior cyst in R kidney, consider outpatient followup (e.g. renal US). 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 Dialyzed 01/09 and resumed usual TTS schedule on 01/11 Assessment & Plan (01/11/2025 1:26 PM CDT): Missed last outpatient session of HD because she was out of town. Dialyzed 01/09 and will resumed usual TTS schedule on 01/11 Assessment & Plan (01/10/2025 12:09 PM CDT): Missed last outpatient session of HD because she was out of town. Dialyzed 01/09 and will resume usual TTS schedule. Assessment & Plan (01/09/2025 2:15 PM CDT): Missed last session of HD because she was out of town. Last dialysis was 01/04/25. -Nephrology consult for HD Assessment & Plan (01/08/2025 8:34 PM CDT): Missed last session of HD because she was out of town. Last dialysis was 01/04/25. -BMP now -Nephrology consult for HD Diabetes mellitus with gastroparesis 01/08/2025 Hypocalcemia 01/08/2025 Diabetes mellitus 01/08/2025 Encounter for feeding tube placement 01/08/2025 Assessment & Plan (01/12/2025 11:21 AM CDT): Patient with severe gastroparesis with prior gastric stimulator and G poem procedure with continued symptoms. Seeing Dr. Vasquez with GI who noted that she has fluctuating oral intake leading to highly variable blood glucose levels with episodes of hypo and hyperglycemia and recommended G-J tube placement. Dr. Vasquez discussed with Dr. Arenas with IR and she was directly admitted today with plans for nutrition consult and G-J placement (per notes placement planned 01/10). -G-J tube placed 01/09, tolerating feeds thus far -Nutrition consult, appreciate assistance Assessment & Plan (01/11/2025 1:26 PM CDT): Patient with severe gastroparesis with prior gastric stimulator and G poem procedure with continued symptoms. Seeing Dr. Vasquez with GI who noted that she has fluctuating oral intake leading to highly variable blood glucose levels with episodes of hypo and hyperglycemia and recommended G-J tube placement. Dr. Vasquez discussed with Dr. Arenas with IR and she was directly admitted today with plans for nutrition consult and G-J placement (per notes placement planned 01/10). -G-J tube placed 01/09, tolerating feeds thus far -Nutrition consult, appreciate assistance Assessment & Plan (01/10/2025 12:09 PM CDT): Patient with severe gastroparesis with prior gastric stimulator and G poem procedure with continued symptoms. Seeing Dr. Vasquez with GI who noted that she has fluctuating oral intake leading to highly variable blood glucose levels with episodes of hypo and hyperglycemia and recommended G-J tube placement. Dr. Vasquez discussed with Dr. rAenas with IR and she was directly admitted today with plans for nutrition consult and G-J placement (per notes placement planned 01/10). -G-J tube placed 01/09, tolerating feeds thus far -Nutrition consult Assessment & Plan (01/09/2025 2:15 PM CDT): Patient with severe gastroparesis with prior gastric stimulator and G poem procedure with continued symptoms. Seeing Dr. Vasquez with GI who noted that she has fluctuating oral intake leading to highly variable blood glucose levels with episodes of hypo and hyperglycemia and recommended G-J tube placement. Dr. Vasquez discussed with Dr. Arenas with IR and she was directly admitted today with plans for nutrition consult and G-J placement (per notes placement planned 01/10). -G-J tube placed 01/09 -GI consult -Nutrition consult Assessment & Plan (01/08/2025 8:34 PM CDT): Patient with severe gastroparesis with prior gastric stimulator and G poem procedure with continued symptoms. Seeing Dr. Vasquez with GI who noted that she has fluctuating oral intake leading to highly variable blood glucose levels with episodes of hypo and hyperglycemia and recommended G-J tube placement. Dr. Vasquez discussed with Dr. Arenas with IR and she was directly admitted today with plans for nutrition consult and G-J placement (per notes placement planned 01/10). 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 Recent GJ tube (01/09/25), with increased output and n/v, likely gastroparesis flare. CT negative for obstruction. Improving, though course c/b tube clog (10 PM). Patient wants to try advancing TF as much as possible while inpatient. Tolerating diet and tube feeds. At this point, with negative CT and ultrasound as well as tolerance of tube feeds and medications, and thorough education with good demonstration by the patient, no further inpatient testing or intervention appears indicated. - ADAT: tolerating some solid food, TF (4- PM) at goal 45ml/hr - if tube is clogged, can try viokace + bicarbonate given response 10/2 AM and 105 PM. - prn antiemetics - RD aware Assessment & Plan (01/25/2025 12:34 PM CDT): Hx of gastroparesis s/p gastric stimulator + G-POEM, likely some cyclic N/V as well. Recent GJ tube (01/09/25), with increased output and n/v, likely gastroparesis flare. CT negative for obstruction. Improving, though course c/b tube clog (01/17 PM). Patient wants to try advancing TF as much as possible while inpatient. Tolerating diet and tube feeds. At this point, with negative CT and ultrasound as well as tolerance of tube feeds and medications, and thorough education with good demonstration by the patient, no further inpatient testing or intervention appears indicated. - ADAT: tolerating some solid food, TF ( PM) at goal 45ml/hr - if tube is clogged, can try viokace + bicarbonate given response 10/2 AM and 10/5 PM. - prn antiemetics - RD aware Assessment & Plan (01/24/2025 1:33 PM CDT): Hx of gastroparesis s/p gastric stimulator + G-POEM, likely some cyclic N/V as well. Recent GJ tube (01/09/25), with increased output and n/v, likely gastroparesis flare. CT negative for obstruction. Improving, though course c/b tube clog (01/17). Patient wants to try advancing TF as much as possible while inpatient. Tolerating diet and tube feeds. At this point, with negative CT and ultrasound as well as tolerance of tube feeds and medications, and thorough education with good demonstration by the patient, no further inpatient testing or intervention appears indicated. - ADAT: tolerating some solid food, TF ( PM) at goal 45ml/hr - if tube is clogged, can try viokace + bicarbonate given response 10/2 AM and 10/5 PM. - prn antiemetics - RD aware Assessment & Plan (01/23/2025 3:57 PM CDT): Hx of gastroparesis s/p gastric stimulator + G-POEM, likely some cyclic N/V as well. Recent GJ tube (01/09/25), with increased output and n/v, likely gastroparesis flare. CT negative for obstruction. Improving, though course c/b tube clog (01/17). Patient wants to try advancing TF as much as possible while inpatient. Tolerating diet and tube feeds. - Will get abdominal ultrasound - ADAT: tolerating some solid food, TF (01/20- PM) at goal 45ml/hr - if tube is clogged, can try viokace + bicarbonate given response 10/2 AM and 10/5 PM. - prn antiemetics - RD aware Assessment & Plan (01/22/2025 3:45 PM CDT): Hx of gastroparesis s/p gastric stimulator + G-POEM, likely some cyclic N/V as well. Recent GJ tube (01/09/25), with increased output and n/v, likely gastroparesis flare. CT negative for obstruction. Improving, though course c/b tube clog (01/17 PM). Patient wants to try advancing TF as much as possible while inpatient. - ADAT: tolerating some solid food, TF ( PM) at goal 45ml/hr - if tube is clogged, can try viokace + bicarbonate given response 10/2 AM and 10/5 PM. - prn antiemetics - RD aware - CT AP (01/15): interval GJ tube without complication, diffuse bladder wall thickening with possible cystitis, diffuse thickening of distal esophageal wall with possible esophagitis, interval increase 1.6cm lesion in R kidney (?hemorrhagic cyst), ?hepatic fibrosis, CVC terminates around tricuspid valve. Assessment & Plan (01/21/2025 12:36 PM CDT): Hx of gastroparesis s/p gastric stimulator + G-POEM, likely some cyclic N/V as well. Recent GJ tube (01/09/25), with increased output and n/v, likely gastroparesis flare. CT negative for obstruction. Improving, though course c/b tube clog (01/17 PM). Patient wants to try advancing TF as much as possible while inpatient. - ADAT: tolerating some solid food, TF ( PM) at goal 45ml/hr - if tube is clogged, can try viokace + bicarbonate given response 10/2 AM. - prn antiemetics - RD aware - CT AP (01/15): interval GJ tube without complication, diffuse bladder wall thickening with possible cystitis, diffuse thickening of distal esophageal wall with possible esophagitis, interval increase 1.6cm lesion in R kidney (?hemorrhagic cyst), ?hepatic fibrosis, CVC terminates around tricuspid valve. Assessment & Plan (01/20/2025 11:11 AM CDT): Hx of gastroparesis s/p gastric stimulator + G-POEM, likely some cyclic N/V as well. Recent GJ tube (01/09/25), with increased output and n/v, likely gastroparesis flare. CT negative for obstruction. Improving, though course c/b tube clog (01/17 PM). Patient wants to try advancing TF as much as possible while inpatient. - ADAT: tolerating some solid food, TF (01/20 PM) at goal 45ml/hr - if tube is clogged, can try viokace + bicarbonate given response 10/2 AM. - prn antiemetics - RD aware - CT AP (01/15): interval GJ tube without complication, diffuse bladder wall thickening with possible cystitis, diffuse thickening of distal esophageal wall with possible esophagitis, interval increase 1.6cm lesion in R kidney (?hemorrhagic cyst), ?hepatic fibrosis, CVC terminates around tricuspid valve. Assessment & Plan (01/19/2025 1:46 PM CDT): Hx of gastroparesis s/p gastric stimulator + G-POEM, likely some cyclic N/V as well. Recent GJ tube (01/09/25), with increased output and n/v, likely gastroparesis flare. CT negative for obstruction. Improving, though course c/b tube clog (01/17 PM). Patient wants to try advancing TF as much as possible while inpatient. - ADAT: tolerating some solid food, TF (01/19 PM) at goal 45ml/hr - if tube is clogged, can try viokace + bicarbonate given response 10/2 AM. - prn antiemetics - RD aware - CT AP (01/15): interval GJ tube without complication, diffuse bladder wall thickening with possible cystitis, diffuse thickening of distal esophageal wall with possible esophagitis, interval increase 1.6cm lesion in R kidney (?hemorrhagic cyst), ?hepatic fibrosis, CVC terminates around tricuspid valve. Assessment & Plan (01/18/2025 1:59 PM CDT): Hx of gastroparesis s/p gastric stimulator + G-POEM, likely some cyclic N/V as well. Recent GJ tube (01/09/25), with increased output and n/v, likely gastroparesis flare. CT negative for obstruction. Improving, though course c/b tube clog (01/17 PM). Patient wants to try advancing TF as much as possible while inpatient. - ADAT: tolerating some solid food, TF (01/18 PM) at 20ml/hr (prior 45ml/hr) - if tube is clogged, can try viokace + bicarbonate given response 01/18 AM. - prn antiemetics - RD aware: nepro 20ml/hr, can escalate to 45ml/hr the following day - CT AP (01/15): interval GJ tube without complication, diffuse bladder wall thickening with possible cystitis, diffuse thickening of distal esophageal wall with possible esophagitis, interval increase 1.6cm lesion in R kidney (?hemorrhagic cyst), ?hepatic fibrosis, CVC terminates around tricuspid valve. Assessment & Plan (01/17/2025 11:49 AM CDT): Hx of gastroparesis s/p gastric stimulator + G-POEM, likely some cyclic N/V as well. Recent GJ tube (01/09/25), was tolerating tube feeds but then went home and decreased N/V. Still nauseated but not vomiting with G tube hooked to drainage. Now with copious G tube output. CT negative for obstruction. Likely her known gastroparesis is contributing to slow transit time. - ADAT: tolerating some solid food, TF at 20ml/hr (prior 45ml/hr) with some nausea, likely can titrate as outpatient - prn antiemetics - RD aware: nepro 20ml/hr - CT AP (01/15): interval GJ tube without complication, diffuse bladder wall thickening with possible cystitis, diffuse thickening of distal esophageal wall with possible esophagitis, interval increase 1.6cm lesion in R kidney (?hemorrhagic cyst), ?hepatic fibrosis, CVC terminates around tricuspid valve. Assessment & Plan (01/16/2025 1:57 PM CDT): Hx of gastroparesis s/p gastric stimulator + G-POEM, likely some cyclic N/V as well. Recent GJ tube (01/09/25), was tolerating tube feeds but then went home and decreased N/V. Still nauseated but not vomiting with G tube hooked to drainage. Now with copious G tube output. CT negative for obstruction. Likely her known gastroparesis is contributing to slow transit time. - ADAT: Plan to try solid food 01/16 AM and tube feeds 01/16 PM - prn antiemetics - RD aware - CT AP (01/15): interval GJ tube without complication, diffuse bladder wall thickening with possible cystitis, diffuse thickening of distal esophageal wall with possible esophagitis, interval increase 1.6cm lesion in R kidney (?hemorrhagic cyst), ?hepatic fibrosis, CVC terminates around tricuspid valve. Assessment & Plan (01/15/2025 6:51 PM CDT): Hx of gastroparesis, likely some cyclic N/V as well. G-J tube placed last week, was tolerating tube feeds but then went home and decreased N/V. Still nauseated but not vomiting with G tube hooked to drainage. Now with copious G tube output. CT negative for obstruction. Likely her known gastroparesis is contributing to slow transit time. - prn antiemetics and IVF - hold tube feeds and make NPO for now - monitor G tube output - consult dietitian and GI in the am Assessment & Plan (11/05/2024 8:57 AM CDT): [...] Type 1 diabetes mellitus with hyperglycemia 10/2024 Assessment & Plan (01/12/2025 11:21 AM CDT): -She reports current home regimen is NPH 12 units AM and 15 units PM plus Novolog SSI -Glucose on arrival 320, 4 units IV insulin ordered -Sugars remain labile - current regimen here Lantus 30 Units in the am + Lispro 6 Units q 4 hrs while receiving feeds + SSI during the day -Monitor glucose and adjust as tolerated -Endocrine consult, appreciate recs Assessment & Plan (01/11/2025 1:26 PM CDT): -She reports current home regimen is NPH 12 units AM and 15 units PM plus Novolog SSI -Glucose on arrival 320, 4 units IV insulin ordered -Sugars remain labile - current regimen here Lantus 30 Units in the am + Lispro 6 Units q 4 hrs while receiving feeds + SSI during the day -Monitor glucose and adjust as tolerated -Endocrine consult, appreciate recs Assessment & Plan (01/10/2025 12:09 PM CDT): -She reports current home regimen is NPH 12 units AM and 15 units PM plus Novolog SSI -Glucose on arrival 320, 4 units IV insulin ordered -Sugars remain labile - current regimen here Lantus 25 Units in the am + Lispro 4 Units with meals -Monitor glucose and adjust as tolerated -Endocrine consult Assessment & Plan (01/09/2025 2:15 PM CDT): -She reports current home regimen is NPH 12 units AM and 15 units PM plus Novolog SSI -Glucose on arrival 320, 4 units IV insulin ordered -Decreased home regimen to NPH 10 units BID + insulin sensitive SSI -Monitor glucose and adjust as tolerated -Endocrine consult Assessment & Plan (01/08/2025 8:34 PM CDT): -She reports current home regimen is NPH 12 units AM and 15 units PM plus Novolog SSI -Glucose on arrival 320, 4 units IV insulin ordered -Decrease home regimen to NPH 10 units BID + insulin sensitive SSI -Monitor glucose and adjust as tolerated -BMP now to r/o DKA Anemia due to chronic kidney disease, on [...] diabetes mellitus 02/09/2024 Fluid overload, unspecified 02/07/2024 Headache 01/07/2024 Assessment & Plan (01/26/2025 7:31 AM CDT): Likely tension type with paraspinal cervical tenderness. - Acetaminophen, oxycodone, ketorolac available for pain - Ondansetron, prochlorperazine available for nausea Assessment & Plan (01/25/2025 12:34 PM CDT): Likely tension type with paraspinal cervical tenderness. - Acetaminophen, oxycodone, ketorolac available for pain - Ondansetron, prochlorperazine available for nausea Gastroparesis 12/23/2023 Autonomic neuropathy due to type 2 diabetes rachid itus 12/20/2023 Pulmonary nodule 11/29/2023 Sepsis due to methicillin resistant Staphylococc us aureus 11/08/2023 ESRD (end stage renal disease) 10/23/2023 Assessment & Plan (01/26/2025 7:31 AM CDT): iHD T/Th/Sat through tunneled line. No symptoms, but position of line appears close to tricuspid valve. Line placed by vascular surgery. - renal c/s: aware - would consider outpatient vascular surgery followup for line close to tricuspid valve Assessment & Plan (01/25/2025 12:34 PM CDT): iHD T/Th/Sat through tunneled line. No symptoms, but position of line appears close to tricuspid valve. Line placed by vascular surgery. - renal c/s: aware - would consider outpatient vascular surgery followup for line close to tricuspid valve Assessment & Plan (01/24/2025 8:48 AM CDT): iHD T/Th/Sat through tunneled line. No symptoms, but position of line appears close to tricuspid valve. Line placed by vascular surgery. - renal c/s: aware - would consider outpatient vascular surgery followup for line close to tricuspid valve Assessment & Plan (01/23/2025 3:57 PM CDT): iHD T/Th/Sat through tunneled line. No symptoms, but position of line appears close to tricuspid valve. Line placed by vascular surgery. - renal c/s: aware - would consider outpatient vascular surgery followup for line close to tricuspid valve Assessment & Plan (01/22/2025 3:45 PM CDT): iHD T/Th/Sat through tunneled line. No symptoms, but position of line appears close to tricuspid valve. Line placed by vascular surgery. - renal c/s: aware - would consider outpatient vascular surgery followup for line close to tricuspid valve Assessment & Plan (01/21/2025 12:36 PM CDT): iHD T/Th/Sat through tunneled line. No symptoms, but position of line appears close to tricuspid valve. Line placed by vascular surgery. - renal c/s: aware - would consider outpatient vascular surgery followup for line close to tricuspid valve Assessment & Plan (01/20/2025 11:11 AM CDT): iHD T/Th/Sat through tunneled line. No symptoms, but position of line appears close to tricuspid valve. Line placed by vascular surgery. - renal c/s: aware - would consider outpatient vascular surgery followup for line close to tricuspid valve Assessment & Plan (01/19/2025 1:46 PM CDT): iHD T/Th/Sat through tunneled line. No symptoms, but position of line appears close to tricuspid valve. Line placed by vascular surgery. - renal c/s: aware - would consider outpatient vascular surgery followup for line close to tricuspid valve Assessment & Plan (01/18/2025 1:59 PM CDT): iHD T/Th/Sat through tunneled line. No symptoms, but position of line appears close to tricuspid valve. Line placed by vascular surgery. - renal c/s: aware - would consider outpatient vascular surgery followup for line close to tricuspid valve Assessment & Plan (01/17/2025 11:49 AM CDT): iHD T/Th/Sat through tunneled line. No symptoms, but position of line appears close to tricuspid valve. Line placed by vascular surgery. - renal c/s: aware - would consider outpatient vascular surgery followup for line close to tricuspid valve Assessment & Plan (01/16/2025 1:57 PM CDT): iHD T/Th/Sat through tunneled line. No symptoms, but position of line appears close to tricuspid valve. Line placed by vascular surgery. - renal c/s: aware - would consider outpatient vascular surgery followup for line. Assessment & Plan (01/15/2025 6:51 PM CDT): Due for HD tomorrow. TTS outpatient schedule. Discussed with Dr. Goff. Secondary hyperparathyroidism of renal origin Coagulation defect, [...] dialysis 10/26/2022 Retention of urine, unspecified 04/19/2022 Type 1 diabetes mellitus with kidney complicatio n 08/07/2021 Assessment & Plan (01/26/2025 12:09 PM CDT): She reports good control at home over the weekend. At last hospitalization endocrinology followed her, discharged on lantus 30u qAM + lispro 6u q4 while on tube feeds (nepro 45ml/hr 6PM-10AM). - lantus 18u qAM - endo c/s: lantus qAM + low-dose slide 5 times a day (1800, 2200, 0200, 0600, 1200) + lispro q4 while on tube feeds (1800, 2200, 0200, 0600) - lispro will be 2 units q4 - Has a POCT check around 1000 that will not have associated sliding-scale insulin order Assessment & Plan (01/25/2025 12:34 PM CDT): She reports good control at home over the weekend. At last hospitalization endocrinology followed her, discharged on lantus 30u qAM + lispro 6u q4 while on tube feeds (nepro 45ml/hr 6PM-10AM). - lantus 20u qAM - endo c/s: lantus qAM + low-dose slide 5 times a day (1800, 2200, 0200, 0600, 1200) + lispro q4 while on tube feeds (1800, 2200, 0200, 0600) - lispro will be 3 units q4 - Has a POCT check around 1000 that will not have associated sliding-scale insulin order Assessment & Plan (01/24/2025 1:33 PM CDT): She reports good control at home over the weekend. At last hospitalization endocrinology followed her, discharged on lantus 30u qAM + lispro 6u q4 while on tube feeds (nepro 45ml/hr 6PM-10AM). - lantus 20u qAM - endo c/s: lantus qAM + low-dose slide 5 times a day (1800, 2200, 0200, 0600, 1200) + lispro q4 while on tube feeds (1800, 2200, 0200, 0600) - lispro will be 3 units q4 - Has a POCT check around 1000 that will not have associated sliding-scale insulin order Assessment & Plan (01/23/2025 3:57 PM CDT): She reports good control at home over the weekend. At last hospitalization endocrinology followed her, discharged on lantus 30u qAM + lispro 6u q4 while on tube feeds (nepro 45ml/hr 6PM-10AM). - lantus 20u qAM - endo c/s: lantus qAM + low-dose slide 5 times a day (1800, 2200, 0200, 0600, 1200) + lispro q4 while on tube feeds (1800, 2200, 0200, 0600) - lispro will be 3 units q4 - Has a POCT check around 1000 that will not have associated sliding-scale insulin order Assessment & Plan (01/22/2025 3:45 PM CDT): She reports good control at home over the weekend. At last hospitalization endocrinology followed her, discharged on lantus 30u qAM + lispro 6u q4 while on tube feeds (nepro 45ml/hr 6PM-10AM). - lantus 20u qAM - endo c/s: lantus qAM + low-dose slide 5 times a day (1800, 2200, 0200, 0600, 1200) + lispro q4 while on tube feeds (1800, 2200, 0200, 0600) - lispro will be 2 units q4 when on nepro 45ml/hr. - Has a POCT check around 1000 that will not have associated sliding-scale insulin order Assessment & Plan (01/21/2025 12:36 PM CDT): She reports good control at home over the weekend. At last hospitalization endocrinology followed her, discharged on lantus 30u qAM + lispro 6u q4 while on tube feeds (nepro 45ml/hr 6PM-10AM). - lantus 20u qAM - endo c/s: lantus qAM + low-dose slide 5 times a day (1800, 2200, 0200, 0600, 1200) + lispro q4 while on tube feeds (1800, 2200, 0200, 0600) - lispro will be 2 units q4 when on nepro 45ml/hr. - Has a POCT check around 1000 that will not have associated sliding-scale insulin order Assessment & Plan (01/20/2025 11:11 AM CDT): She reports good control at home over the weekend. At last hospitalization endocrinology followed her, discharged on lantus 30u qAM + lispro 6u q4 while on tube feeds (nepro 45ml/hr 6PM-10AM). - 01/20: lantus made 20u qAM given hypoglycemia. - endo c/s: lantus qAM + low-dose slide 5 times a day (1800, 2200, 0200, 0600, 1200) + lispro q4 while on tube feeds (1800, 2200, 0200, 0600) - lispro will be 2 units q4 when on nepro 45ml/hr. - Has a POCT check around 1000 that will not have associated sliding-scale insulin order Assessment & Plan (01/19/2025 1:46 PM CDT): She reports good control at home over the weekend. At last hospitalization endocrinology followed her, discharged on lantus 30u qAM + lispro 6u q4 while on tube feeds (nepro 45ml/hr 6PM-10AM). - endo c/s: lantus 23u qAM + low-dose slide 5 times a day (1800, 2200, 0200, 0600, 1200) + lispro q4 while on tube feeds (1800, 2200, 0200, 0600) - lispro will be 2 units q4 when on nepro 45ml/hr. - Has a POCT check around 1000 that will not have associated sliding-scale insulin order Assessment & Plan (01/18/2025 4:43 PM CDT): She reports good control at home over the weekend. At last hospitalization endocrinology followed her, discharged on lantus 30u qAM + lispro 6u q4 while on tube feeds (nepro 45ml/hr 6PM-10AM). - endo c/s: lantus 23u qAM + low-dose slide 5 times a day (1800, 2200, 0200, 0600, 1200) + lispro q4 while on tube feeds (1800, 2200, 0200, 0600) - lispro should be 3 units q4 when on nepro 20ml/hr. (For nepro 45ml/hr would be 6u q4) - Has a POCT check around 1000 that will not have associated sliding-scale insulin order Assessment & Plan (01/17/2025 3:20 PM CDT): She reports good control at home over the weekend. At last hospitalization endocrinology followed her, discharged on lantus 30u qAM + lispro 6u q4 while on tube feeds (nepro 45ml/hr 6PM-10AM). - endo c/s: lantus 25u qAM + low-dose slide 5 times a day (1800, 2200, 0200, 0600, 1200) + lispro q4 while on tube feeds (1800, 2200, 0200, 0600) - lispro should be 3 units q4 when on nepro 20ml/hr. (For nepro 45ml/hr would be 6u q4) - Has a POCT check around 1000 that will not have associated sliding-scale insulin order Assessment & Plan (01/16/2025 1:59 PM CDT): She reports good control at home over the weekend. At last hospitalization endocrinology followed her, discharged on lantus 30u qAM + lispro 6u q4 while on tube feeds (6PM-10AM). - lantus 25u qAM + LDSSI q4 + lispro 6u q4 while on tube feeds (6PM-10AM). - if worse sugar control 01/17 would consult endo Assessment & Plan (01/15/2025 6:51 PM CDT): She reports good control at home over the weekend. Will dose reduce Lantus slightly to 25 Units q am. SSI q 4 hrs, monitor sugars closely. Endocrine consult as needed, they followed her last admission. Assessment & Plan (05/13/2022 9:19 AM ACOUSTICAL LOGGING ENGINEER): Glucose overall improved Continue current regimen Given [...] xanx Assessment & Plan (05/15/2020 6:30 AM ACOUSTICAL LOGGING ENGINEER): Uncontrolled Start cymbalta, xanax Odynophagia 04/09/2020 DKA [...] not be able to see her own field administrator until September. Continue to monitor. Hold any anticoagulation for now. 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 - continues to have severe abdominal [...] same. Plan change to esophageal diet today. Sales Engineer Account Manager to review prior to dc Plan f/u with Dr Chaves in GI as OP Assessment & Plan (03/31/2022 5:47 PM ACOUSTICAL LOGGING ENGINEER): Type 1 diabetic Cyclical vomiting, gastroparesis - [...] q1hr Assessment & Plan (05/15/2020 2:56 PM ACOUSTICAL LOGGING ENGINEER): Needs letter for another 2 weeks off and when returns needs intermittent restrictions on return with no more than 3 days per week, but not consecutive 3 days Assessment & Plan (05/15/2020 6:29 AM ACOUSTICAL LOGGING ENGINEER): Uncontrolled Cont treatment per GI Cont reglan Has PICC line Assessment & Plan (06/27/2019 8:44 AM CDT): - Chronic emesis which triggers DKA. No active symptoms now. - PCP follow up. - Glucose control as above. Assessment & Plan (04/21/2019 1:24 PM ACOUSTICAL LOGGING ENGINEER): -Patient reports h/o positive gastric emptying study [...] had discussion with patient regarding pain control. residential opioids would be a very poor choice for her, given her gastroparesis, young age, and potential for developing dependence/addiction. Will not discharge on opioids. Assessment & Plan (04/20/2019 6:16 PM ACOUSTICAL LOGGING ENGINEER): -Patient reports h/o positive gastric emptying study [...] fluids Assessment & Plan (03/29/2020 5:23 AM ACOUSTICAL LOGGING ENGINEER): Uncontrolled Cont long acting insulin with SSI F/u with professor of biological sciences Assessment & Plan (03/20/2020 5:26 AM ACOUSTICAL LOGGING ENGINEER): Uncontrolled Cont insulin pump per endocrinology Vitamin D deficiency 05/25/2016 Assessment & Plan (02/03/2019 9:53 AM CDT): Will recheck Assessment & Plan (08/24/2018 2:45 PM CDT): Cont vitamin d supplement HTN (hypertension) 03/20/2016 Assessment & Plan (01/26/2025 7:31 AM CDT): Elevated systolic likely secondary to discomfort (with hospitalization) +/- nausea. Imdur XR cannot be crushed for tube. - amlo 10, imdur 30 daily, losartan 100 - metop 200mg XL -> 100mg bid as tartrate theoretically can be crushed for j- tube. Assessment & Plan (01/25/2025 12:34 PM CDT): Elevated systolic likely secondary to discomfort (with hospitalization) +/- nausea. Imdur XR cannot be crushed for tube. - amlo 10, imdur 30 daily, losartan 100 - metop 200mg XL -> 100mg bid as tartrate theoretically can be crushed for j- tube. Assessment & Plan (01/24/2025 8:48 AM CDT): Elevated systolic likely secondary to discomfort (with hospitalization) +/- nausea. Imdur XR cannot be crushed for tube. - amlo 10, imdur 30 daily, losartan 100 - metop 200mg XL -> 100mg bid as tartrate theoretically can be crushed for j- tube. Assessment & Plan (01/23/2025 3:57 PM CDT): Elevated systolic likely secondary to discomfort (with hospitalization) +/- nausea. Imdur XR cannot be crushed for tube. - amlo 10, imdur 30 daily, losartan 100 - metop 200mg XL -> 100mg bid as tartrate theoretically can be crushed for j- tube. Assessment & Plan (01/22/2025 3:45 PM CDT): Elevated systolic likely secondary to discomfort (with hospitalization) +/- nausea. Imdur XR cannot be crushed for tube. - amlo 10, imdur 30 daily, losartan 100 - metop 200mg XL -> 100mg bid as tartrate theoretically can be crushed for j- tube. Assessment & Plan (01/21/2025 12:36 PM CDT): Elevated systolic likely nausea/discomfort and difficulty with keeping down home meds. Imdur XR cannot be crushed for tube. - amlo 10, imdur 30 daily, losartan 100 - metop 200mg XL -> 100mg bid as tartrate can be crushed for j-tube. Assessment & Plan (01/20/2025 6:39 PM CDT): Elevated systolic likely nausea/discomfort and difficulty with keeping down home meds - amlo 10, imdur 30 daily, losartan 100 - metop 200mg XL -> 100mg bid as tartrate can be crushed for j-tube. Assessment & Plan (01/19/2025 1:46 PM CDT): Elevated systolic likely nausea/discomfort and difficulty with keeping down home meds - amlo 10, imdur 30 daily, losartan 100, metop XL 200 daily Assessment & Plan (01/18/2025 1:59 PM CDT): Elevated systolic likely nausea/discomfort and difficulty with keeping down home meds - amlo 10, imdur 30 daily, losartan 100, metop XL 200 daily Assessment & Plan (01/17/2025 11:49 AM CDT): Elevated systolic likely nausea/discomfort and difficulty with keeping down home meds - amlo 10, imdur 30 daily, losartan 100, metop XL 200 daily Assessment & Plan (01/16/2025 1:57 PM CDT): Elevated systolic likely nausea/discomfort and difficulty with keeping down home meds - amlo 10, imdur 30 daily, losartan 100, metop XL 200 daily Assessment & Plan (01/15/2025 6:51 PM CDT): BP elevated in the ER likely due to nausea and not being able to keep down her home meds. Cont home meds, monitor BP closely. Assessment & Plan (01/12/2025 11:21 AM CDT): -Continue home meds Assessment & Plan (01/11/2025 1:26 PM CDT): -Continue home meds Assessment & Plan (01/10/2025 12:09 PM CDT): -Continue home meds Assessment & Plan (01/09/2025 2:15 PM CDT): -Continue home meds Assessment & Plan (01/08/2025 8:34 PM CDT): -Continue home meds Assessment & Plan (11/05/2024 8:57 AM CDT): [...] losartan Assessment & Plan (03/31/2022 5:47 PM ACOUSTICAL LOGGING ENGINEER): Not at goal Pt left office today [...] 10mg Assessment & Plan (03/29/2020 5:24 AM ACOUSTICAL LOGGING ENGINEER): Stable Cont lisinopril, amlodipine Assessment & Plan [...] lisinopril. Assessment & Plan (06/12/2019 12:12 PM ACOUSTICAL LOGGING ENGINEER): continue lisinopril and toprol xl , clonidine patch Assessment & Plan (06/11/2019 1:52 PM ACOUSTICAL LOGGING ENGINEER): _BP better today , continue lisinopril and toprol xl Assessment & Plan (05/07/2019 2:03 PM ACOUSTICAL LOGGING ENGINEER): On clonidine, metoprolol and lisinopril at home. - continue home clonidine and metoprolol - hold lisinopril for now (? EUGENIE related intestinal angioedema). May need to consider alternative anti-hypertensive if needed as a trial. Assessment & Plan (04/28/2019 4:43 PM ACOUSTICAL LOGGING ENGINEER): - Cont home meds Assessment & Plan (04/27/2019 2:59 PM ACOUSTICAL LOGGING ENGINEER): - Cont home meds Assessment & Plan (04/21/2019 12:59 PM ACOUSTICAL LOGGING ENGINEER): Clonidine patch and metoprolol XL -BP stable Assessment & Plan (04/11/2019 12:43 PM ACOUSTICAL LOGGING ENGINEER): Cont lisinopril and Toprol XL, and due for change of clonidine patch Assessment & Plan (04/10/2019 11:29 AM ACOUSTICAL LOGGING ENGINEER): BP elevated this am but improved after [...] 10/27/2023 02/16/2024 Shortness of breath 10/23/2023 02/16/20 24 Perirectal abscess 10/23/2023 Anemia 10/23/2023 02/16/2024 Type 1 diabetes mellitus wit h ketoacidosis without coma 09/23/2023 10/19/2023 Disorder of phosphorus metab olism, unspecified 09/03/2023 02/16/2024 Hyperglycemia due to diabetes mellitus 08/28/2023 10/19/2023 Diarrhea, unspecified 08/19/20232023 Gastroparesis due to DM 07/31/2023 07/0 05/2023 Hypocalcemia 07/25/2023 10/19/2023 Hyponatremia 07/25/2023 10/19/2023 Abdominal pain 07/25/2023 10/19/2023 Nausea and vomiting 07/25/2023 10/19/19 24 Uncontrolled hypertension 07/25/2023 Hyperglycemia 07/25/2023 10/19/[address] 07/19/2023 070 05/2023 Shortness of breath 07/14/2023 07/19/19 24 [...] be an option per palliative consult at [facility]. She is no longer wishing for hospice, [...] 1400mL 07/06, but pt refusing catheterization. On PARK ACTIVITIES COORDINATOR already, but at risk for bladder perforation. [...] 07/05, 07/06 & 07/07. Also coordinating with [employer], as well. -Consulted urology for bladder decompression options & ferris placed. Pt wishes to go home today, BG now controlled. Plan dc home today with [facility], orders placed 07/07. Transition meds to PO at discharge, as pt tolerating diet. Discharge Planning I have spent 30 minutes on discharge planning activities. Time spent was on Coordination of care, Follow up , Counselling with patient/family, discharge exam, parent/patient education, PCP communication, and Other provider communication. Assessment & Plan (06/15/2023 3:17 AM ACOUSTICAL LOGGING ENGINEER): Related with gastroparesis. See gastroparesis section Type [...] as well, related to diabetes. Counseled on termite control servicer effects of poorly controlled diabetes by multiple [...] s/p gastric pacemaker, ESRD newly on HD (M/W/), admitted with N/V on 11/21. More recently [...] she was discharged from ED. Came to [facility] ED on 07/12, again discharged from ED. Returned to [facility] on 07/13 with same symptoms and admitted [...] she was discharged from ED. Came to [facility] ED on 07/12, again discharged from ED. Returned to [facility] on 07/13 with same symptoms and admitted [...] 12/22/2022 Assessment & Plan (05/15/2020 6:30 AM ACOUSTICAL LOGGING ENGINEER): Will need to get flushed Weight loss [...] now. Urged patient to re-establish with previous professor of biological sciences for management. Need back on insulin pump [...] & Plan (07/31/2021 3:08 PM CDT): Dietitian recgely appreciated Assessment & Plan (06/07/2020 3:17 PM ACOUSTICAL LOGGING ENGINEER): Persistent Cont reglan, zofran, compazine Refer to new gi Nausea & vomiting 05/07/2019 06/15/2023 Assessment & Plan (03/29/2020 5:23 AM ACOUSTICAL LOGGING ENGINEER): Uncontrolled Secondary to severe gastroparesis Will try scopolamine patch Cont zofran, compazine prn Assessment & Plan (06/12/2019 12:13 PM ACOUSTICAL LOGGING ENGINEER): -resolved -continue home meds, tolerating diet -has h/o cyclical vomiting and follows with GI -Reports benefit from recently added Motegrity and amitriptyline. She is on a low dose amitriptyline 25mg QHS. Will increase to 50mg QHS. Pt reports some restless leg side effects, advised her to watch carefully and reduce dose if RLS worsens. Assessment & Plan (06/11/2019 1:55 PM ACOUSTICAL LOGGING ENGINEER): -resolved -continue home meds, tolerating diet -has h/o cyclical vomiting and follows with GI Assessment & Plan (05/07/2019 1:59 PM ACOUSTICAL LOGGING ENGINEER): Previously seen by GI and felt to [...] 07/19/2023 Assessment & Plan (03/31/2022 5:48 PM ACOUSTICAL LOGGING ENGINEER): Seen by GI Fluids given Assessment & [...] Plan (08/04/2020 4:13 PM CDT): Chronic Cont jonny kaur Has f/u with GI Assessment & Plan (06/07/2020 3:17 PM ACOUSTICAL LOGGING ENGINEER): Persistent Cont jonny rodriguez, compazine Refer to new gi Assessment & Plan (05/31/2020 2:18 PM ACOUSTICAL LOGGING ENGINEER): Uncontrolled Cont treatment per GI Has PICC line Assessment & Plan (05/15/2020 6:29 AM ACOUSTICAL LOGGING ENGINEER): Uncontrolled Cont treatment per GI Has PICC line Assessment & Plan (03/20/2020 5:26 AM ACOUSTICAL LOGGING ENGINEER): Uncontrolled Cont treatment per GI To refer [...] up. Assessment & Plan (04/28/2019 4:43 PM ACOUSTICAL LOGGING ENGINEER): - Seen by GI last admission. Thought that available data and history more consistent with [facility]. - Started on low dose amitriptyline, will increase to 50mg - Uses promethazine for N/V Assessment & Plan (04/27/2019 2:53 PM ACOUSTICAL LOGGING ENGINEER): - Seen by GI last admission. Thought [...] considered. Assessment & Plan (05/07/2019 2:02 PM ACOUSTICAL LOGGING ENGINEER): Has not yet started Motegrity at home due to issues with pharmacy. No BM in 3 days per patient. - start motegrity 2mg qd Assessment & Plan (04/28/2019 4:43 PM ACOUSTICAL LOGGING ENGINEER): - Had BM after none for 5 days. Rx'd prucalopride last admission, just today arrived to pharmacy so not taken. She reports that she received opioids for the first time last admission - Will hold for now as she says she alternates with diarreha. Assessment & Plan (04/27/2019 3:00 PM ACOUSTICAL LOGGING ENGINEER): - Had BM after none for 5 days. Rx'd prucalopride last admission, just today arrived to pharmacy so not taken. She reports that she received opioids for the first time last admission - Will hold for now as she says she alternates with diarreha. Moderate malnutrition 04/26/20192024 Assessment & Plan (11/05/2024 8:57 AM CDT): [...] consult Assessment & Plan (05/15/2020 6:30 AM ACOUSTICAL LOGGING ENGINEER): PICC line in place because of need for recurrent IVF Assessment & Plan (06/27/2019 8:49 AM CDT): - 2/2 diabeters and chronic poor control and long standing cyclic vomiting and gastroperesis. Diet as tolerated, diabetic diet. Assessment & Plan (06/12/2019 12:12 PM ACOUSTICAL LOGGING ENGINEER): -Continue supplements as tolerated Dehydration 04/25/2019 07/19/2023 Assessment & Plan (07/31/2021 [...] recs Assessment & Plan (04/21/2019 12:59 PM ACOUSTICAL LOGGING ENGINEER): -Sales Engineer Account Manager consult, supplements as recommended. Patient doesn't like taste of many supplements Assessment & Plan (04/11/2019 12:43 PM ACOUSTICAL LOGGING ENGINEER): Treating nausea and encourage more regular food [...] gastroparesis. Assessment & Plan (06/12/2019 12:11 PM ACOUSTICAL LOGGING ENGINEER): - weaned off isulin drip , now [...] today Assessment & Plan (06/11/2019 1:55 PM ACOUSTICAL LOGGING ENGINEER): - weaned off onsulin drip , now [...] . Assessment & Plan (04/28/2019 4:43 PM ACOUSTICAL LOGGING ENGINEER): - Recurrent admissions, seem to be brought [...] intake Assessment & Plan (04/27/2019 2:59 PM ACOUSTICAL LOGGING ENGINEER): - Recurrent admissions, seem to be brought [...] outpatient Assessment & Plan (04/21/2019 1:02 PM ACOUSTICAL LOGGING ENGINEER): -DKA resolved after IV insulin, IVF and electrolyte repletion in ICU Assessment & Plan (04/20/2019 6:13 PM ACOUSTICAL LOGGING ENGINEER): -DKA resolved after IV insulin, IVF and electrolyte repletion in ICU Assessment & Plan (04/11/2019 12:48 PM ACOUSTICAL LOGGING ENGINEER): Presented with N/V which she felt was [...] closely Assessment & Plan (04/10/2019 11:28 AM ACOUSTICAL LOGGING ENGINEER): Presented with N/V which she felt was [...] with gastr oparesis ([facility] 07/07/2018 03/31/2022 Assessment & Plan (07/31/2021 11:00 [...] to repetitive movements c/w tardive dyskinesia. - religious educator - Stress Analyst - on sliding scale only for now, will add on basal+bolus regimen if necessary - follow POC glucose checks Assessment & Plan (07/14/2021 6:35 PM CDT): Patient had been on insulin pump but stopped using it once she was admitted to [facility] on 07/02. Was previously on Reglan but discontinued due to repetitive movements c/w tardive dyskinesia. - religious educator - Stress Analyst - on sliding scale only for now, will add on basal+bolus regimen if necessary - follow POC glucose checks Assessment & Plan (04/11/2019 12:42 PM ACOUSTICAL LOGGING ENGINEER): Longstanding gastroparesis per patient. Recently admitted at [facility] but left 2-3 days prior to admission here as she says she was unhappy with her care. Nausea recurred this am but no vomiting. Will resume IVF if she doesn't tolerate lunch. I reviewed some records from [facility] and found a gastric emptying study done in [place] which was normal, though this doesn't exclude gastroparesis I wonder if there is a functional component as well Regardless, cont supportive care with prn Zofran and added prn Compazine Assessment & Plan (04/10/2019 11:29 AM ACOUSTICAL LOGGING ENGINEER): Longstanding gastroparesis per patient. Recently admitted at [facility] but left 2-3 days prior to admission here as she says she was unhappy with her care. Cont prn antiemetics, she says Reglan didn't help in the past Outpatient GI F/U Resume IVF if she starts vomiting again Assessment & Plan (02/03/2019 9:53 AM CDT): Well controlled now since seeing professor of biological sciences and using OmniPod. She is cleared to [...] AM. Assessment & Plan (05/07/2019 1:58 PM ACOUSTICAL LOGGING ENGINEER): History of brittle diabetes with multiple recent [...] AM Assessment & Plan (04/21/2019 1:21 PM ACOUSTICAL LOGGING ENGINEER): -Home regimen lantus 24u QAM, humalog 1 [...] count (which we do not do at [facility]) -D/c home, close f/u as outpatient Assessment & Plan (04/20/2019 6:14 PM ACOUSTICAL LOGGING ENGINEER): -Home regimen lantus 24u QAM, humalog 1 unit per 5 gram carb, SSI -Hospital regimen lantus 15units QAM, lispro 3 unit TID, Mid dose SSI -Her diet intake has been very unpredictable 2/2 gastroparesis, so I am intentionally underdosing mealtime insulin to avoid hypoglycemia. Assessment & Plan (08/24/2018 2:44 PM CDT): Diabetes is unchanged. cont long acting insulin until sees professor of biological sciences ETD (Eustachian tube dysfunction), bilateral 8 07/19/2023 Diabetic gastroparesis ([facility]) 05/22/2017 03/31/2022 Overview (01/08/2020): Last Assessment & [...] found a gastric emptying study done in [place] which was normal, though this doesn't exclude gastroparesis I wonder if there is a functional component as well Regardless, cont supportive care with prn Zofran and added prn Compazine Assessment & Plan (08/04/2020 4:13 PM CDT): Chronic Cont regjonny martinez Has f/u with GI Assessment & Plan (06/07/2020 3:16 PM ACOUSTICAL LOGGING ENGINEER): Persistent Cont reglanmarbellafran, compazine Refer to new gi Assessment & Plan (03/29/2020 5:22 AM ACOUSTICAL LOGGING ENGINEER): Severely uncontrolled To f/u with Gi Recommended patient d/w GI about tube feedings She agrees to do so Assessment & Plan (03/20/2020 5:26 AM ACOUSTICAL LOGGING ENGINEER): Uncontrolled Cont treatment per GI To refer [...] Encounters Date Type Department Care Team Description 01/29/2025 Telephone [facility] Family Medicine at [address] [place] [address] Edgardo Aldridge MD 01/29/2025 [facility]phone [facility] [address] [place] [address] Outpatient Health 3rd Floor [address] [place] [address] Chyna Kay MA Scheduling Appointments 01/24/2025 Telephone [facility] Orthopedics and Sports Medicine [address] [place] [address] [address] [place] [address] Sussy Garcia PA req a cb about surg; FYI 01/15/2025 3:03 PM CDT - 01/26/2025 11:15 AM CDT Hospital Encounter [facility] [id number] [facility] [place] [address] Odilon Correa MD PhD Anne-Marie, MD Jo Kennedy Jerry, MD PhD Juvencio, Devang Childers MD Nausea and vomiting, unspecified vomiting type (Primary Dx); History of gastrostomy; Abdominal pain; High anion gap Discharge Disposition: Discharge to home, home health skilled care 01/14/2025 3:48 PM CDT - 01/14/2025 5:25 PM CDT Emergency [facility] Emergency Department [address] [place] [address] Leo August DO Encounter for attention to gastrostomy (HCC) (Primary Dx) Discharge Disposition: Discharge to home or self care 01/12/2025 Telephone [facility] Transplant Kidney [address] [facility] [address] [id number] [place] [address] Mavis Barahona RN 01/09/2025 9:27 AM CDT Anesthesia Event [facility] Imaging [address] [place] [address] Jeferson Pascal MD 01/09/2025 Orders Only Radiology [address] [place] [address] Jamie Bell MD 01/08/2025 5:49 PM CDT - 01/12/2025 2:21 PM CDT Hospital Encounter [facility] [address] [place] [address] Viraj Olivo MD Heath, MD Anne-Marie Hernández, MD Paula Kennedy, Yareli Nelson MD Gastroparesis due to secondary diabetes (HCC) (Primary Dx); Diabetes mellitus with gastroparesis (HCC) Discharge Disposition: Discharge to home or self care 01/08/2025 10:30 AM CDT Office Visit [facility] Orthopedics and Sports Medicine [address] [place] [phone] Raul Clark DO Right ankle pain, unspecified chronicity (Primary Dx); Lisfranc dislocation, left, subsequent encounter; Arthritis of right midfoot; Acquired pes planovalgus of right foot; Arthrosis of right ankle 01/08/2025 10:10 AM CDT - 01/08/2025 11:59 PM CDT Hospital Encounter [facility] Diag Imaging [address] [place] [id number] Right ankle pain, unspecified chronicity; Lisfranc dislocation, left, subsequent encounter Discharge Disposition: Discharge to home or self care 01/08/2025 Telephone [facility] Gastroenterology [address] [facility] 12th [place] [address] [place] [address] Yodit Ayers RN 01/04/2025 Documentation [facility] Medicine Gastroenterology [address] [facility] 12th [place] [address] [place] [address] Young Vasquez MD 01/02/2025 Telephone [facility] Radiology [address] [place] [address] Jaimie Foster RN 12/29/2024 Results Follow-Up [facility] Family Medicine at [address] [place] [address] Edgardo Aldridge MD SCAN - RADIOLOGY/IMAGING 12/28/2024 Documentation [facility] Medicine Gastroenterology [address] [facility] Medical Office Building [address] [place] [phone] Jaimie Manriquez, KADY Consult from [facility] 12/28/2024 Results Follow-Up [facility] Medicine Gastroenterology [address] [facility] 12th [place] [address] [place] [address] Young Vasquez MD Surgical pathology 12/26/2024 8:46 AM CDT Anesthesia Event [facility] Digestive Disease [address] [place] [id number] Dylan Frias MD Kandachar, Suman Subbaraya, MD 12/26/2024 8:45 AM CDT - 12/26/2024 9:45 AM CDT Surgery [facility] [address] [place] [address] Young Vasquez MD COLON BIOPSY 12/26/2024 6:53 AM CDT - 12/26/2024 11:18 AM CDT Hospital Encounter [facility] [place] [address] [facility] [address] [place] [id number] Young Vasquez MD Perirectal fistula; Gastroparesis Discharge Disposition: Discharge to home or self care 12/26/2024 6:40 AM CDT Lab [facility] [address] [place] [address] Dialysis patient; Pre-procedure lab exam 12/26/2024 Results Follow-Up [facility] Medicine Gastroenterology [address] [facility] Advanced Medicine 12th [place] [address] [place] [address] Abdomen and Pelvis Enterography W Contrast 12/25/2024 11:57 AM CDT - 12/25/2024 11:59 PM CDT Hospital Encounter [facility] Radiology [facility] [address] [place] [address] Perirectal fistula Discharge Disposition: Discharge to home or self care 12/22/2024 12:28 PM CDT - 12/22/2024 11:59 PM CDT [place] [address] Closed displaced trimalleolar fracture of right ankle, initial encounter; Acute right ankle pain; Flat foot (pes planus) (acquired), right foot Discharge Disposition: Discharge to home or self care 12/22/2024 12:27 PM CDT - 12/22/2024 11:59 PM CDT [place] [address] Lisfranc dislocation, right, initial encounter; Acute pain of right foot; Flat foot (pes planus) (acquired), right foot Discharge Disposition: Discharge to home or self care 12/22/2024 Orders Only [facility] Health Information Management [address] [place] [address] Edgardo Aldridge MD 12/20/2024 Telephone [facility] Transplant Kidney [address] [facility] 340 Mailstop [phone] [place] [address] Julissa Urban Referral - Kidney Txp 12/19/2024 Telephone [facility] Specialty Services [address] [place] [address] Bir Anton RN GI PROCEDURE 7 DAY PRE CALL 12/07/2024 1:00 PM CDT Office Visit [facility] Medical Group Orthopedics and Sports Medicine [address] [place] [address] [address] [place] [address] Raul Clark DO Acute pain of right foot (Primary Dx); Right ankle pain, unspecified chronicity; Lisfranc dislocation, right, initial encounter; Closed displaced trimalleolar fracture of right ankle, initial encounter; Acute right ankle pain; Flat foot (pes planus) (acquired), right foot 12/07/2024 12:51 PM CDT - 12/07/2024 11:59 PM CDT Hospital Encounter [facility] Diag Imaging [address] [place] [phone] Right ankle pain, unspecified chronicity Discharge Disposition: Discharge to home or self care 12/05/2024 Telephone [facility] Transplant Kidney [address] [facility] [address] [phone] [place] [address] Julissa Urban Referral - Kidney Txp 11/28/2024 Telephone [facility] Medical [facility] Nephrology at [address] [place] [address] Odilon Tellez MD 11/23/2024 Results Follow-Up [facility] Family Medicine at [address] [place] [address] Edgardo Aldridge MD SCAN - RADIOLOGY/IMAGING 11/22/2024 Results Follow-Up [facility] Medical Group Family Medicine at [address] [place] [address] Edgardo Aldridge MD XR Ankle Right 3+ Vw 11/21/2024 Orders Only [facility] Medical Group Family Medicine at [address] [place] [address] Edgardo Aldridge MD Crushing injury of right foot and ankle, subsequent encounter 11/16/2024 12:05 AM CDT - 11/16/2024 11:59 PM CDT Hospital Encounter [facility] [employer] [address] [facility] [place] [address] Discharge Disposition: Discharge to home or self care 11/16/2024 - 11/16/2024 11:59 PM CDT Hospital Encounter [facility] [employer] [facility] [address] [facility] [place] [address] Discharge Disposition: Discharge to home or self care 11/16/2024 Orders Only [facility] Health Information Management [address] [place] [address] Edgardo Aldridge MD 11/14/2024 Telephone [facility] Medical [facility] Family Medicine at [address] [place] [phone] Edgardo Aldridge MD 11/13/2024 Telephone [facility] Family Medicine at [address] [place] [phone] Edgardo Aldridge MD 3rd No Show Letter sent to patient 11/13/2024 Results Follow-Up [facility] Medical [facility] Family Medicine at [address] [place] [phone] Chest WO Contrast 11/09/2024 Telephone [facility] Medical [facility] Family Medicine at [address] [place] [phone] Edgardo Aldridge MD Additional Services Or Orders 11/09/2024 Telephone [facility] Medical [facility] Family Medicine at [address] [place] [phone] Edgardo Aldridge MD Medical Question/Miscellaneo us 11/08/2024 Orders Only [facility] Medicine Gastroenterology [address] [facility] 12th [place] [address] [place] [address] Yareli Jones CMA Perirectal fistula (Primary Dx) 11/06/2024 9:00 AM CDT Office Visit [facility] Medicine Gastroenterology [address] [facility] 12th [place] [address] [place] [address] Young Vasquez MD Gastroparesis (Primary Dx); Perirectal fistula; Diabetic gastroparesis (HCC); Diarrhea, unspecified type 11/03/2024 Telephone [facility] Family Medicine at [address] [place] [phone] Edgardo Aldridge MD Medical Question/Miscellaneo us 11/02/2024 Telephone [facility] Medicine at [address] [place] [phone] Edgardo Aldridge MD JACKELYN Questions 10/29/2024 10:16 AM CDT - 11/05/2024 10:34 AM CDT Hospital Encounter [address] [phone] Nathan Moore MD Griffey, Richard Thomas, MD Hoyt, Thomas William, MD Daniel, Edward, MD PhD Dutch Blake MD Nausea and vomiting, unspecified vomiting type (Primary Dx); Gastroparesis; Type 1 diabetes mellitus with other specified complication (HCC) Discharge Disposition: Discharge to home or self care from Last 3 Months Immunizations Immunization Administration Dates Next Due DTP / HiB 07/10/1996, 6,1995,09/14 DTaP 12/03/2000,01/17/1998 Hep B, Unspecified 1995,1995, 996 Heplisav-b (Hepatitis B) 09/02/2023,07/20/2023 Hib (PRP-T) 01/17/1998 Influenza, Quadrivalent, Spl it, Preservative Free, Intramuscular 02/16/2023,02/14/2021 Influenza, Trivalent, Cell Culture-based MDCK, Preservative Free, Antibiotic Free, Intramuscular 02/02/2024 Influenza, Trivalent, Preser vative Free, Intramuscular 01/18/2025 Influenza, Unspecified 01/17/2022(Deferr ed: Patient decision),01/17/2022(Deferred: Patient decision),02/27/2020,02/28/2019 MMR 12/03/2000,10/12/1996 OPV 01/21/1996,1995 PPD TEST 05/22/2016 Polio, Unspecified 01/17/1998,07/10/1996, 996 Varicella 10/12/1996 Surgical History Surgery Date Site/Laterality Comments PORTACATH PLACEMENT PORTACATH PLACEMENT 04/22/2020 [employer] CHOLECYSTECTOMY TUNNELED VENOUS CATHETER PLACEMENT 11/03/2023 Right RIJ permacath - Dr. Skip Huddleston US GUIDED THORACENTESIS 10/19/2022 N/A G TO GJ-TUBE REPLACEMENT 01/09/2025 N/A Medical History Medical History Date Comments [...] 11/30/2011 GERD (gastroesophageal reflux disease) Thompson esophagus Moderate malnutrition 04/26/2019 Family History Medical History Relation Name Comments [...] drink = 0.6 oz pur e alcohol) Social Connection and Isolation Panel Answer Date Recorded In a typical week, how many times do you talk on the phone with family, friends, or neighbors? More than three times a week 11/07/2024 How often do you get togethe r with friends or relatives? More than three times a week 11/07/2024 How often do you attend chur ch or worship services? Never 11/07/2024 Do you belong to [...] Answer Date Recorded PHQ-2 Total Score 0 01/09/2025 [facility] - Occupational Stress Questionnaire Answer Date Recorded Do you feel stress - tense, restless, nervous, or anxious, or unable to sleep at night because your mind is troubled all the time - these days? Very much 11/07/2024 PRAPARE - Transportation Answer Date Re [...] any time in the past 12 m [facility], were you homeless or living in a detention (including now)? No 11/07/2024 Social Connection and Isolation Panel Answer Date Recorded In a typical week, how many times do you talk on the phone with family, friends, or neighbors? More than three times a week 01/17/2025 How often do you get togethe r with friends or relatives? More than three times a week 01/17/2025 How often do you attend chur ch or worship services? Never 01/17/2025 Do you belong to any clubs o r organizations such as mosque groups, unions, fraternal or athletic groups, or school groups? No 01/17/2025 How often do you attend meet ings of the clubs or organizations you belong to? Never 01/17/2025 Are you , , di vorced, , never , or living with a partner? Never 01/17/2025 AUDIT-C Answer Date Recorded Q1: How often do you have a drink containing alcohol? Never 01/08/2025 Q2: How many drinks containi ng alcohol do you have on a typical day when you are drinking? Patient does not drink Q3: How often do you have si x or more drinks on one occasion? Never 01/08/2025 Overall Financial Resource Strain (CARDIA) Answe r Date Recorded How hard is it for you to pa y for the very basics like food, housing, medical care, and heating? Not very hard 01/17/2025 Hunger Vital Sign Answer Date Recorded Within the past 12 months, y ou worried that your food would run out before you got the money to buy more. Never true 01/18/20 25 Within the past 12 months, t he food you bought just didn't last and you didn't have money to get more. Never true 01/17/2025 PRAPARE - Transportation Answer Date Re corded In the past 12 months, has l ack of transportation kept you from medical appointments or from getting medications? No 04/2024 In the past 12 months, has l ack of transportation kept you from meetings, work, or from getting things needed for daily living? No 01/17/2025 Housing Stability Vital Sign Answer Pablo e Recorded In the last 12 months, was t here a time when you were not able to pay the mortgage or rent on time? No 01/17/2025 In the past 12 months, how m any times have you moved where you were living? 0 01/17/2025 At any time in the past 12 m [facility], were you homeless or living in a detention (including now)? No 01/17/2025 [facility] Utilities Answer Date Recorded In the past 12 months has th e [place], gas, oil, or water [employer] threatened to shut off services in your home? No 01/17/2025 Personal Safety Answer Date Recorded Have you ever been in or are you currently in a harmful physical or emotional relationship or is someone making you feel afraid or unsafe? Denies 01/15/2025 Comments Unknown Sex and Gender Information Value Date Recorded Sex Assigned at Not on file Legal Sex Female 9:16 AM [employer]ING [employer] Gender Identity Not on file Sexual Orientation Not on file Obstetrics History Para Term AB IAB SAB Ectopic Multiple Livin g Live Births 0 0 0 0 0 0 0 0 0 0 0 Last Filed Vital Signs Vital Sign Reading Time Taken Comments Blood Pressure 176/88 01/26/2025 8:18 AM CDT Pulse 79 01/26/2025 8:18 AM CDT Temperature 36.9 C (98.4 F) 01/26/2025 8:18 AM CDT Respiratory Rate 18 01/26/2025 8:18 AM CDT Oxygen Saturation 100% 01/26/2025 8:18 AM CDT Inhaled Oxygen Concentration - - Weight 78.1 kg (172 lb 2.9 oz) 01/23/2025 7:16 A M CDT Height 162.6 cm (5' 4) 01/15/2025 6:11 PM CDT Body Mass Index 29.55 01/15/2025 6:11 PM CDT Plan of Treatment Health Maintenance Due Date Last Done Comments Cervical Cancer Screening 1995 Foot Exam 1995 [...] (2 - 2024-2 6 season) 2024 01/24/2021 Hemoglobin A1C 05/02/2025 10/30/2024, 10/17, 07/28/2024, Additional history exists Lipid Panel 12/04/2025 12/04/2024, 10/17, 09/23/2023, Additional history exists TSH Level 12/10/2025 12/10/2024, 05/2024, 08/20/2024, Additional history exists Depression Screening 01/08/2026 01/08/2025, 10/29/2024, 2024, Additional history exists eGFR 01/25/2026 01/25/2025, 11/2024, 01/23/2025, Additional history exists Hepatitis C Screening Completed 12/24/2023 , 11/29/2023, 05/25/2023, Additional history exists Hepatitis B Screening Completed 01/09/2025 , 09/02/2023, 07/20/2023, Additional history exists Influenza Vaccine Completed 01/18/2025, , 02/16/2023, Additional history exists Albumin Creatinine Ratio, Urine Discontinued Medical Devices Implanted Type Area Time Checker Device Identifier Shelf Expiration Date Model / Serial / Lot Raquel Lyric Trialysis 13fr 24cm Dialysis Tray Catheter Sterile Short Term [id number] - [id number] Implanted:Qty: 1 on 10/27/2023 by Juan Long MD at [facility] Catheter Right: Groin Raquel [employer]ric [id number] 07/17/2024 [id number] / / [id number] [employer] Symmetry Vesolock Large Clip Internal 72480y - Sn/A - [id number] Implanted:Qty: 1 on 10/05/2022 by Andrei Chaves MD PhD at [facility] Clip N/A: Abdomen [employer] 04/19/2025 [id number] / N/A / [employer] Enterra 35cm Lead Unipolar Kit Stimulator 4351-35 - [id number] - [id number] Implanted:Qty: 1 on 10/05/2022 by Andrei Chaves MD PhD at [facility] Stimulator N/A: Abdomen [employer] 06/04/2024 4351-35 / [id number] / [employer] Enterra 35cm Lead Unipolar Kit Stimulator 4351-35 - [id number] - [id number] Implanted:Qty: 1 on 10/05/2022 by Andrei Chaves MD PhD at [facility] Stimulator N/A: Abdomen [employer] 08/10/2024 4351-35 / [id number] / [employer] Inc Neurostimulator Implantable 2.4inx2.2in Enterra Ii Gastric [id number] - [id number] - [id number] Implanted:Qty: 1 on 10/05/2022 by Andrei Chaves MD PhD at [facility] Stimulator N/A: Abdomen [employer] 11/30/2022 [id number] / [id number] / N/A [employer] Embosa[employer] 15.5fr 24cm Basic 2 Lumen Kit Catheter [id number] - [id number] Implanted:Qty: 1 on 11/03/2023 by Skip Huddleston MD at [facility] [employer] 01/16/2026 [id number] / / Procedures Procedure Name Priority Date/Time Associated Diagnosis Comments POCT GLUCOSE DEVICE Routine 01/26/2025 10:36 AM CDT POCT GLUCOSE DEVICE Routine 01/26/2025 8:22 AM CDT POCT GLUCOSE DEVICE Routine 01/26/2025 5:50 AM CDT POCT GLUCOSE DEVICE Routine 01/26/2025 1:53 AM CDT POCT GLUCOSE DEVICE Routine 01/25/2025 9:55 PM CDT POCT GLUCOSE DEVICE Routine 01/25/2025 5:42 PM CDT POCT GLUCOSE DEVICE Routine 01/25/2025 12:57 PM CDT POCT GLUCOSE DEVICE Routine 01/25/2025 12:39 PM CDT POCT GLUCOSE DEVICE Routine 01/25/2025 10:43 AM CDT POCT GLUCOSE DEVICE Routine 01/25/2025 9:08 AM CDT POCT GLUCOSE DEVICE Routine 01/25/2025 7:51 AM CDT POCT GLUCOSE DEVICE Routine 01/25/2025 5:21 AM CDT MAGNESIUM Timed 01/25/2025 5:18 AM CDT EGFR Timed 01/25/2025 5:18 AM CDT RENAL FUNCTION PANEL Timed 01/25/2025 5:18 AM CDT POCT GLUCOSE DEVICE Routine 01/25/2025 2:02 AM CDT POCT GLUCOSE DEVICE Routine 01/24/2025 10:05 PM CDT POCT GLUCOSE DEVICE Routine 01/24/2025 6:13 PM CDT POCT GLUCOSE DEVICE Routine 01/24/2025 12:59 PM CDT POCT GLUCOSE DEVICE Routine 01/24/2025 9:32 AM CDT EGFR Routine 01/24/2025 5:56 AM CDT MAGNESIUM Routine 01/24/2025 5:56 AM CDT RENAL FUNCTION PANEL Routine 01/24/2025 5:56 AM CDT POCT GLUCOSE DEVICE Routine 01/24/2025 5:43 AM CDT POCT GLUCOSE DEVICE Routine 01/24/2025 1:53 AM CDT POCT GLUCOSE DEVICE Routine 01/23/2025 9:51 PM CDT US ABDOMEN COMPLETE IP Routine 01/23/2025 9:18 PM CDT POCT GLUCOSE DEVICE Routine 01/23/2025 4:58 PM CDT POCT GLUCOSE DEVICE Routine 01/23/2025 12:15 PM CDT EGFR Timed 01/23/2025 6:36 AM CDT RENAL FUNCTION PANEL Timed 01/23/2025 6:36 AM CDT POCT GLUCOSE DEVICE Routine 01/23/2025 6:17 AM CDT POCT GLUCOSE DEVICE Routine 01/23/2025 2:08 AM CDT POCT GLUCOSE DEVICE Routine 01/22/2025 11:38 PM CDT POCT GLUCOSE DEVICE Routine 01/22/2025 8:14 PM CDT POCT GLUCOSE DEVICE Routine 01/22/2025 5:25 PM CDT POCT GLUCOSE DEVICE Routine 01/22/2025 2:24 PM CDT POCT GLUCOSE DEVICE Routine 01/22/2025 10:26 AM CDT POCT GLUCOSE DEVICE Routine 01/22/2025 6:07 AM CDT POCT GLUCOSE DEVICE Routine 01/22/2025 2:15 AM CDT POCT GLUCOSE DEVICE Routine 01/21/2025 10:28 PM CDT POCT GLUCOSE DEVICE Routine 01/21/2025 5:23 PM CDT POCT GLUCOSE DEVICE Routine 01/21/2025 12:29 PM CDT POCT GLUCOSE DEVICE Routine 01/21/2025 8:02 AM CDT POCT GLUCOSE DEVICE Routine 01/21/2025 6:05 AM CDT POCT GLUCOSE DEVICE Routine 01/21/2025 1:50 AM CDT POCT GLUCOSE DEVICE Routine 01/20/2025 9:49 PM CDT POCT GLUCOSE DEVICE Routine 01/20/2025 4:28 PM CDT POCT GLUCOSE DEVICE Routine 01/20/2025 1:07 PM CDT EGFR Timed 01/20/2025 10:23 AM CDT DIFFERENTIAL AUTO Timed 01/20/2025 10:23 AM CDT RENAL FUNCTION PANEL Timed 01/20/2025 10:23 AM CDT CBC WITH AUTO DIFFERENTIAL Timed 01/20 10:23 AM CDT POCT GLUCOSE DEVICE Routine 01/20/2025 9:51 AM CDT POCT GLUCOSE DEVICE Routine 01/20/2025 8:45 AM CDT POCT GLUCOSE DEVICE Routine 01/20/2025 8:02 AM CDT POCT GLUCOSE DEVICE Routine 01/20/2025 5:49 AM CDT POCT GLUCOSE DEVICE Routine 01/20/2025 1:57 AM CDT POCT GLUCOSE DEVICE Routine 01/19/2025 10:01 PM CDT POCT GLUCOSE DEVICE Routine 01/19/2025 6:01 PM CDT POCT GLUCOSE DEVICE Routine 01/19/2025 4:18 PM CDT POCT GLUCOSE DEVICE Routine 01/19/2025 11:51 AM CDT POCT GLUCOSE DEVICE Routine 01/19/2025 10:04 AM CDT POCT GLUCOSE DEVICE Routine 01/19/2025 6:33 AM CDT POCT GLUCOSE DEVICE Routine 01/19/2025 2:13 AM CDT POCT GLUCOSE DEVICE Routine 01/18/2025 9:50 PM CDT POCT GLUCOSE DEVICE Routine 01/18/2025 5:59 PM CDT POCT GLUCOSE DEVICE Routine 01/18/2025 12:15 PM CDT POCT GLUCOSE DEVICE Routine 01/18/2025 6:08 AM CDT POCT GLUCOSE DEVICE Routine 01/18/2025 2:09 AM CDT POCT GLUCOSE DEVICE Routine 01/17/2025 7:36 PM CDT POCT GLUCOSE DEVICE Routine 01/17/2025 5:40 PM CDT POCT GLUCOSE DEVICE Routine 01/17/2025 12:02 PM CDT POCT GLUCOSE DEVICE Routine 01/17/2025 8:19 AM CDT POCT GLUCOSE DEVICE Routine 01/17/2025 3:39 AM CDT POCT GLUCOSE DEVICE Routine 01/17/2025 1:03 AM CDT POCT GLUCOSE DEVICE Routine 01/16/2025 11:58 PM CDT POCT GLUCOSE DEVICE Routine 01/16/2025 11:40 PM CDT POCT GLUCOSE DEVICE Routine 01/16/2025 11:23 PM CDT POCT GLUCOSE DEVICE Routine 01/16/2025 11:04 PM CDT POCT GLUCOSE DEVICE Routine 01/16/2025 10:46 PM CDT POCT GLUCOSE DEVICE Routine 01/16/2025 7:48 PM CDT POCT GLUCOSE DEVICE Routine 01/16/2025 4:32 PM CDT POCT GLUCOSE DEVICE Routine 01/16/2025 12:40 PM CDT POCT GLUCOSE DEVICE Routine 01/16/2025 9:13 AM CDT EGFR Routine 01/16/2025 6:49 AM CDT CBC WITHOUT DIFFERENTIAL Routine 025 6:49 AM CDT BASIC METABOLIC PANEL Routine 01/16/2025 6:49 AM CDT POCT GLUCOSE DEVICE Routine 01/16/2025 3:16 AM CDT POCT GLUCOSE DEVICE Routine 01/15/2025 11:41 PM CDT POCT GLUCOSE DEVICE Routine 01/15/2025 8:45 PM CDT POCT GLUCOSE DEVICE Routine 01/15/2025 7:01 PM CDT POCT HCG, URINE Routine 01/15/2025 4:[address] ABDOMEN PELVIS W CONTRAST ED 4:14 PM CDT URINALYSIS, MICROSCOPIC ONLY STAT 4:12 PM CDT URINALYSIS AND REFLEX TO MICROSCOPIC AND CULTURE STAT 01/15/2025 4:12 PM CDT EGFR STAT 01/15/2025 3:18 PM CDT DIFFERENTIAL AUTO STAT 01/15/2025 3:18 PM CDT COMPREHENSIVE METABOLIC PANEL STAT 3:18 PM CDT CBC WITH AUTO DIFFERENTIAL STAT 01/15 3:18 PM CDT POCT GLUCOSE DEVICE Routine 01/12/2025 10:49 AM CDT POCT GLUCOSE DEVICE Routine 01/12/2025 8:11 AM CDT POCT GLUCOSE DEVICE Routine 01/11/2025 11:44 PM CDT POCT GLUCOSE DEVICE Routine 01/11/2025 10:23 PM CDT POCT GLUCOSE DEVICE Routine 01/11/2025 8:33 PM CDT POCT GLUCOSE DEVICE Routine 01/11/2025 7:01 PM CDT POCT GLUCOSE DEVICE Routine 01/11/2025 5:03 PM CDT POCT GLUCOSE DEVICE Routine 01/11/2025 12:02 PM CDT POCT GLUCOSE DEVICE Routine 01/11/2025 9:14 AM CDT EGFR Timed 01/11/2025 8:27 AM CDT PHOSPHORUS Timed 01/11/2025 8:27 AM CDT MAGNESIUM Timed 01/11/2025 8:27 AM CDT BASIC METABOLIC PANEL Timed 01/11/2025 8:27 AM CDT POCT GLUCOSE DEVICE Routine 01/11/2025 7:52 AM CDT POCT GLUCOSE DEVICE Routine 01/11/2025 4:35 AM CDT POCT GLUCOSE DEVICE Routine 01/10/2025 11:36 PM CDT POCT GLUCOSE DEVICE Routine 01/10/2025 9:11 PM CDT POCT GLUCOSE DEVICE Routine 01/10/2025 7:44 PM CDT POCT GLUCOSE DEVICE Routine 01/10/2025 5:29 PM CDT POCT GLUCOSE DEVICE Routine 01/10/2025 1:56 PM CDT POCT GLUCOSE DEVICE Routine 01/10/2025 12:01 PM CDT POCT GLUCOSE DEVICE Routine 01/10/2025 10:22 AM CDT POCT GLUCOSE DEVICE Routine 01/10/2025 7:57 AM CDT POCT GLUCOSE DEVICE Routine 01/10/2025 4:07 AM CDT EGFR Routine 01/10/2025 4:02 AM CDT BASIC METABOLIC PANEL Routine 01/10/2025 4:02 AM CDT CBC WITHOUT DIFFERENTIAL Routine 025 4:02 AM CDT POCT GLUCOSE DEVICE Routine 01/09/2025 11:05 PM CDT POCT GLUCOSE DEVICE Routine 01/09/2025 10:22 PM CDT POCT GLUCOSE DEVICE Routine 01/09/2025 8:46 PM CDT POCT GLUCOSE DEVICE Routine 01/09/2025 6:06 PM CDT POCT GLUCOSE DEVICE Routine 01/09/2025 5:41 PM CDT POCT GLUCOSE DEVICE Routine 01/09/2025 5:05 PM CDT POCT GLUCOSE DEVICE Routine 01/09/2025 2:05 PM CDT HEPATITIS B SURFACE ANTIGEN Routine 12/19 1:16 PM CDT POCT GLUCOSE DEVICE Routine 01/09/2025 12:44 PM CDT POCT GLUCOSE DEVICE Routine 01/09/2025 12:00 PM CDT POCT GLUCOSE DEVICE Routine 01/09/2025 10:55 AM CDT IR GASTROJEJUNOSTOMY TUBE PLACEMENT IP Routine 01/09/2025 10:32 AM CDT [place] AN PROCEDURE PLACEHOLDER Routine 12/19 9:43 AM CDT [place] AN ELECTIVE ENDOTRACHEAL AIRWAY Routine 01/09/2025 9:43 AM CDT POCT GLUCOSE DEVICE Routine 01/09/2025 9:02 AM CDT POCT HCG, URINE Routine 01/09/2025 8:59 AM CDT POCT GLUCOSE DEVICE Routine 01/09/2025 7:09 AM CDT POCT GLUCOSE DEVICE Routine 01/09/2025 4:11 AM CDT BETA-HYDROXYBUTYRATE Timed 01/09/2025 12:50 AM CDT EGFR Timed 01/09/2025 12:49 AM CDT BLOOD GAS, VENOUS Timed 01/09/2025 12:49 AM CDT BASIC METABOLIC PANEL Timed 01/09/2025 12:49 AM CDT POCT GLUCOSE DEVICE Routine 01/09/2025 12:16 AM CDT POCT GLUCOSE DEVICE Routine 01/08/2025 10:21 PM CDT XR CHEST 1 VIEW IP Routine 01/08/2025 9:59 PM CDT BETA-HYDROXYBUTYRATE STAT 01/08/2025 8:57 PM CDT EGFR STAT 01/08/2025 8:57 PM CDT DIFFERENTIAL AUTO STAT 01/08/2025 8:57 PM CDT PROTIME-INR STAT 01/08/2025 8:57 PM CDT CBC WITH AUTO DIFFERENTIAL STAT 01/08 8:57 PM CDT RENAL FUNCTION PANEL STAT 01/08/2025 8:57 PM CDT POCT GLUCOSE DEVICE Routine 01/08/2025 7:44 PM CDT POCT GLUCOSE DEVICE Routine 01/08/2025 6:43 PM CDT XR FOOT RIGHT 3 OR MORE VIEWS Schedule Routine, Read Routine (OP Routine) 01/08/2025 10:22 AM CDT Right ankle pain, unspecified chronicity Lisfranc dislocation, left, subsequent encounter XR ANKLE RIGHT 3 OR MORE VIEWS Schedule Routine, Read Routine (OP Routine) 01/08/2025 10:22 AM CDT Right ankle pain, unspecified chronicity Lisfranc dislocation, left, subsequent encounter POCT GLUCOSE DEVICE Routine 12/26/2024 9:47 AM CDT COLONOSCOPY 12/26/2024 9:16 AM CDT [place] AN PROCEDURE PLACEHOLDER Routine 12/2024 9:02 AM CDT [place] AN ELECTIVE ENDOTRACHEAL AIRWAY Routine 12/26/2024 9:02 [...] GLUCOSE DEVICE Routine 10/29/2024 10:21 AM CDT TSH Routine 01/09/2024 3:52 PM CDT HEPATITIS PANEL, ACUTE Routine 7:26 AM CDT from Last 3 Months or Most Recently Relevant to Health Maintenance Results * POCT glucose (01/26/2025 10:36 AM CDT) [facility] Signature Glucose, POC 135 70 - 199 mg/dL Comment: Interpretive Data Glucose is assumed to be non-fasting. Fasting Glucose reference ranges are: 0 - 150 years: 70 mg/dL - 99 mg/dL Current interpretive data was last revised on 2013. POC Device Number [id number] HERBER MARCANO Blood 01/26/2025 10:3 6 AM CDT 01/26/2025 10:36 AM CDT Devang Henning MD LAB POCT ORDERABLES - DEVICE Final Result Performing Organization Address [facility] Phone Number [facility] [address] [place] [address] * POCT glucose (01/26/2025 8:22 AM CDT) Glucose, POC 81 70 - 199 mg/dL Comment: Interpretive Data Glucose is assumed to be non-fasting. Fasting Glucose reference ranges are: 0 - 150 years: 70 mg/dL - 99 mg/dL Current interpretive data was last revised on 2013. POC Device Number [id number] 1 HERBER MARCANO Blood 01/26/2025 8:22 AM CDT 01/26/2025 8:22 AM CDT Devang Henning MD LAB POCT ORDERABLES - DEVICE Final Result Performing Organization Address [facility] Phone Number [facility] [address] [place] [address] * POCT glucose (01/26/2025 5:50 AM CDT) Glucose, POC 81 70 - 199 mg/dL Comment: Interpretive Data Glucose is assumed to be non-fasting. Fasting Glucose reference ranges are: 0 - 150 years: 70 mg/dL - 99 mg/dL Current interpretive data was last revised on 2013. POC Device Number [id number] 1 HERBER MARCANO Blood 01/26/2025 5:50 AM CDT 01/26/2025 5:50 AM CDT Devang Henning MD LAB POCT ORDERABLES - DEVICE Final Result Performing Organization Address [facility] de Phone Number HERBER JIMENEZCH [address] [facility]. [facility] [employer] [place], [place] [id number] * POCT glucose (01/26/2025 1:53 AM CDT) Glucose, POC 144 70 - 199 mg/dL Comment: Interpretive Data Glucose is assumed to be non-fasting. Fasting Glucose reference ranges are: 0 - 150 years: 70 mg/dL - 99 mg/dL Current interpretive data was last revised on 2013. POC Device Number [id number] 1 HERBER MARCANO Blood 01/26/2025 1:53 AM CDT 01/26/2025 1:53 AM CDT Devang Henning MD LAB POCT ORDERABLES - DEVICE Final Result Performing Organization Address [facility] de Phone Number HERBER JIMENEZCH [address] [facility]. [facility] [place] [address] * POCT glucose (01/25/2025 9:55 PM CDT) Glucose, POC 172 70 - 199 mg/dL Comment: Interpretive Data Glucose is assumed to be non-fasting. Fasting Glucose reference ranges are: 0 - 150 years: 70 mg/dL - 99 mg/dL Current interpretive data was last revised on 2013. POC Device Number [id number] 1 HERBER MARCANO Blood 01/25/2025 9:55 PM CDT 01/25/2025 9:55 PM CDT Devang Henning MD LAB POCT ORDERABLES - DEVICE Final Result Performing Organization Address [facility] de Phone Number HERBER BJWCH [address] [facility]. [facility] [place] [address] * POCT glucose (01/25/2025 5:42 PM CDT) Glucose, POC 110 70 - 199 mg/dL Comment: Interpretive Data Glucose is assumed to be non-fasting. Fasting Glucose reference ranges are: 0 - 150 years: 70 mg/dL - 99 mg/dL Current interpretive data was last revised on 2013. POC Device Number [id number] 1 HERBER MARCANO Blood 01/25/2025 5:42 PM CDT 01/25/2025 5:42 PM CDT Devang Henning MD LAB POCT ORDERABLES - DEVICE Final Result Performing Organization Address [facility] de Phone Number HERBER REINACH [address] [facility] [employer] [place], [place] [id number] * POCT glucose (01/25/2025 12:57 PM CDT) Glucose, POC 81 70 - 199 mg/dL Comment: Interpretive Data Glucose is assumed to be non-fasting. Fasting Glucose reference ranges are: 0 - 150 years: 70 mg/dL - 99 mg/dL Current interpretive data was last revised on 2013. POC Device Number [id number] 1 HERBER MARCANO Blood 01/25/2025 12:5 7 PM CDT 01/25/2025 12:57 PM CDT Devang Henning MD LAB POCT ORDERABLES - DEVICE Final Result Performing Organization Address [facility] de Phone Number HERBER JIMENEZWCH [address] [facility] [place] [address] * (ABNORMAL) POCT glucose (01/25/2025 12:39 PM CDT) Glucose, POC 64(L) 70 - 199 mg/dL Comment: Interpretive Data Glucose is assumed to be non-fasting. Fasting Glucose reference ranges are: 0 - 150 years: 70 mg/dL - 99 mg/dL Current interpretive data was last revised on 2013. POC Device Number [id number] HERBER MARCANO Glucose comment 1 RN/MD Notified HERBER MARCANO Blood 01/25/2025 12:3 9 PM CDT 01/25/2025 12:39 PM CDT Devang Henning MD LAB POCT ORDERABLES - DEVICE Final Result Performing Organization Address [facility] Phone Number HERBER JIMENEZCH [address] [place] [address] * POCT glucose (01/25/2025 10:43 AM CDT) Glucose, POC 84 70 - 199 mg/dL Comment: Interpretive Data Glucose is assumed to be non-fasting. Fasting Glucose reference ranges are: 0 - 150 years: 70 mg/dL - 99 mg/dL Current interpretive data was last revised on 2013. POC Device Number [id number] 3 HERBER MARCANO Blood 01/25/2025 10:4 3 AM CDT 01/25/2025 10:43 AM CDT Devang Henning MD LAB POCT ORDERABLES - DEVICE Final Result Performing Organization Address [facility] Phone Number [facility] [address] [place] [address] * POCT glucose (01/25/2025 9:08 AM CDT) Glucose, POC 90 70 - 199 mg/dL Comment: Interpretive Data Glucose is assumed to be non-fasting. Fasting Glucose reference ranges are: 0 - 150 years: 70 mg/dL - 99 mg/dL Current interpretive data was last revised on 2013. POC Device Number [id number] 3 HERBER MARCANO Blood 01/25/2025 9:08 AM CDT 01/25/2025 9:08 AM CDT Devang Henning MD LAB POCT ORDERABLES - DEVICE Final Result Performing Organization Address [facility]/ZIP Co de Phone Number [facility] [phone] [address] [facility]. [facility] [employer] [place], [place] [id number] * POCT glucose (01/25/2025 7:51 AM CDT) Glucose, POC 99 70 - 199 mg/dL Comment: Interpretive Data Glucose is assumed to be non-fasting. Fasting Glucose reference ranges are: 0 - 150 years: 70 mg/dL - 99 mg/dL Current interpretive data was last revised on 2013. POC Device Number [id number] 3 HERBER MARCANO Blood 01/25/2025 7:51 AM CDT 01/25/2025 7:51 AM CDT Devang Henning MD LAB POCT ORDERABLES - DEVICE Final Result Performing Organization Address [facility] de Phone Number [facility] [address] [facility] [place] [address] * POCT glucose (01/25/2025 5:21 AM CDT) Glucose, POC 129 70 - 199 mg/dL Comment: Interpretive Data Glucose is assumed to be non-fasting. Fasting Glucose reference ranges are: 0 - 150 years: 70 mg/dL - 99 mg/dL Current interpretive data was last revised on 2013. POC Device Number [id number] 3 HERBER MARCANO Blood 01/25/2025 5:21 AM CDT 01/25/2025 5:21 AM CDT Devang Henning MD LAB POCT ORDERABLES - DEVICE Final Result Performing Organization Address [facility] de Phone Number HERBER JIMENEZCH [address] [facility]. [facility] [employer] [place], [place] [id number] * (ABNORMAL) eGFR (01/25/2025 5:18 AM CDT) eGFR 10(L) >=60 mL/min/1. 73 [...] interpretive data was last reviewed 2021. Blood 01/25/2025 5:18 AM CDT 01/25/2025 5:54 AM CDT us Jeffrey Osorio MD PhD LAB BLOOD ORDERABLES Final Res ult Performing Organization Address [facility] Co de Phone Number [facility] [phone] [place] [address] * Magnesium (01/25/2025 5:18 AM CDT) Magnesium 2.4 1.4 - 2.5 mg/dL Comment: Reference Data. Reference values for Labor and Delivery patients: < or = 0.7 mg/dL to > or = 7.3 mg/dL Current reference data last reviewd on 01/16/2015. Blood 01/25/2025 5:18 AM CDT 01/25/2025 5:54 AM CDT Devang Henning MD LAB BLOOD ORDERABLES Final Result Performing Organization Address City/[facility] Co de Phone Number [facility] [phone] [place] [address] * (ABNORMAL) Renal function panel (01/25/2025 5:18 AM CDT) Sodium 137 135 - 145 mmol/L Potassium, pl 5.5(H) 3.3 - 4.9 mmol/L [facility] Chloride 98 97 - 110 mmol/L [facility] CO2 27 22 - 32 mmol/L [facility] B[facility] Anion gap 12 2 - 15 mmol/L [facility] W BUN 50(H) 6 - 25 mg/dL [facility] Creatinine 5.75(H) 0.60 - 1.10 mg/dL [facility] Glucose 112 70 - 199 mg/dL [facility] Comment: Interpretive Data Fasting glucose >/= [...] interpretive data was last revised 2022. Calcium 9.3 8.5 - 10.3 mg/dL [facility] Phosphorus, pl 4.5 2.3 - 4.5 mg/dL [facility] Albumin 4.0 3.5 - 5.0 g/dL [facility] Blood 01/25/2025 5:18 AM CDT 01/25/2025 5:54 AM CDT us Jeffrey Osorio MD PhD LAB BLOOD ORDERABLES Final Res ult [facility] [address] [facility] [place] [address] * POCT glucose (01/25/2025 2:02 AM CDT) Glucose, POC 181 70 - 199 mg/dL Comment: Interpretive Data Glucose is assumed to be non-fasting. Fasting Glucose reference ranges are: 0 - 150 years: 70 mg/dL - 99 mg/dL Current interpretive data was last revised on 2013. POC Device Number [id number] 3 HERBER MARCANO Blood 01/25/2025 2:02 AM CDT 01/25/2025 2:02 AM CDT Devang Henning MD LAB POCT ORDERABLES - DEVICE Final Result Performing Organization Address [facility] de Phone Number HERBER JIMENEZWCH [address] [facility] [place] [address] * (ABNORMAL) POCT glucose (01/24/2025 10:05 PM CDT) Glucose, POC 243(H) 70 - 199 mg/dL Comment: Interpretive Data Glucose is assumed to be non-fasting. Fasting Glucose reference ranges are: 0 - 150 years: 70 mg/dL - 99 mg/dL Current interpretive data was last revised on 2013. POC Device Number [id number] 3 HERBER MARCANO Blood 01/24/2025 10:0 5 PM CDT 01/24/2025 10:05 PM CDT Devang Henning MD LAB POCT ORDERABLES - DEVICE Final Result Performing Organization Address [facility] de Phone Number HERBER BJWCH [address] [facility] [place] [address] * POCT glucose (01/24/2025 6:13 PM CDT) Glucose, POC 134 70 - 199 mg/dL Comment: Interpretive Data Glucose is assumed to be non-fasting. Fasting Glucose reference ranges are: 0 - 150 years: 70 mg/dL - 99 mg/dL Current interpretive data was last revised on 2013. POC Device Number [id number] 3 BERLINNER BARBARAWCH Blood 01/24/2025 6:13 PM CDT 01/24/2025 6:13 PM CDT Devang Henning MD LAB POCT ORDERABLES - DEVICE Final Result Performing Organization Address [facility] Co de Phone Number HERBER REINA [address] [facility]. [facility] [place] [address] * POCT glucose (01/24/2025 12:59 PM CDT) Glucose, POC 110 70 - 199 mg/dL Comment: Interpretive Data Glucose is assumed to be non-fasting. Fasting Glucose reference ranges are: 0 - 150 years: 70 mg/dL - 99 mg/dL Current interpretive data was last revised on 2013. POC Device Number [id number] 3 HERBER MARCANO Blood 01/24/2025 12:5 9 PM CDT 01/24/2025 12:59 PM CDT Devang Henning MD LAB POCT ORDERABLES - DEVICE Final Result Performing Organization Address [facility] Co de Phone Number HERBER JIMENEZCH [address] [facility]. [facility] [place] [address] * POCT glucose (01/24/2025 9:32 AM CDT) Glucose, POC 111 70 - 199 mg/dL Comment: Interpretive Data Glucose is assumed to be non-fasting. Fasting Glucose reference ranges are: 0 - 150 years: 70 mg/dL - 99 mg/dL Current interpretive data was last revised on 2013. POC Device Number [id number] 3 HERBER MARCANO Blood 01/24/2025 9:32 AM CDT 01/24/2025 9:32 AM CDT Devang Henning MD LAB POCT ORDERABLES - DEVICE Final Result Performing Organization Address [facility] Co de Phone Number HERBER JIMENEZCH [address] [facility]. [facility] [place] [address] * (ABNORMAL) eGFR (01/24/2025 5:56 AM CDT) eGFR 13(L) >=60 mL/min/1. 73 m2 Comment: Interpretive Data [...] interpretive data was last reviewed 2021. Blood 01/24/2025 5:56 AM CDT 01/24/2025 6:25 AM CDT Devang Henning MD LAB BLOOD ORDERABLES Final Result Performing Organization Address [facility] de Phone Number HERBER BJWCH [address] [facility]. [place] [address] * Magnesium (01/24/2025 5:56 AM CDT) Magnesium 2.0 1.4 - 2.5 mg/dL Comment: Reference Data. Reference values for Labor and Delivery patients: < or = 0.7 mg/dL to > or = 7.3 mg/dL Current reference data last reviewd on 01/16/2015. Blood 01/24/2025 5:56 AM CDT 01/24/2025 6:25 AM CDT Devang Henning MD LAB BLOOD ORDERABLES Final Result HERBER MARCANO [address] [address] [facility]. [place] [address] * (ABNORMAL) Renal function panel (01/24/2025 5:56 AM CDT) Sodium 134(L) 135 - 145 mmol/L Potassium, pl 4.8 3.3 - 4.9 mmol/L [facility] Chloride 96(L) 97 - 110 mmol/L [facility] CO2 30 22 - 32 mmol/L [facility] Anion gap 8 2 - 15 mmol/L [facility] BUN 34(H) 6 - 25 mg/dL [facility] Creatinine 4.40(H) 0.60 - 1.10 mg/dL [facility] Glucose 115 70 - 199 mg/dL [facility] Comment: Interpretive Data Fasting glucose >/= 126 [...] interpretive data was last revised 2022. Calcium 9.1 8.5 - 10.3 mg/dL [facility] Phosphorus, pl 3.8 2.3 - 4.5 mg/dL [facility] Albumin 3.7 3.5 - 5.0 g/dL [facility] Blood 01/24/2025 5:56 AM CDT 01/24/2025 6:25 AM CDT Devang Henning MD LAB BLOOD ORDERABLES Final Result Performing Organization Address [facility] Co de Phone Number HERBER JIMENEZWCH [phone] [address] [facility]. [place] [address] * POCT glucose (01/24/2025 5:43 AM CDT) Glucose, POC 115 70 - 199 mg/dL Comment: Interpretive Data Glucose is assumed to be non-fasting. Fasting Glucose reference ranges are: 0 - 150 years: 70 mg/dL - 99 mg/dL Current interpretive data was last revised on 2013. POC Device Number [id number] 3 HERBER MARCANO Blood 01/24/2025 5:43 AM CDT 01/24/2025 5:43 AM CDT Devang Henning MD LAB POCT ORDERABLES - DEVICE Final Result Performing Organization Address [facility] de Phone Number [facility] [address] [facility] [employer] [place], [place] [id number] * POCT glucose (01/24/2025 1:53 AM CDT) Glucose, POC 120 70 - 199 mg/dL Comment: Interpretive Data Glucose is assumed to be non-fasting. Fasting Glucose reference ranges are: 0 - 150 years: 70 mg/dL - 99 mg/dL Current interpretive data was last revised on 2013. POC Device Number [id number] 3 HERBER MARCANO Blood 01/24/2025 1:53 AM CDT 01/24/2025 1:53 AM CDT Devang Henning MD LAB POCT ORDERABLES - DEVICE Final Result Performing Organization Address [facility] de Phone Number HERE[facility] B[facility] [address] [facility] [employer] [place], [place] [id number] * POCT glucose (01/23/2025 9:51 PM CDT) Glucose, POC 134 70 - 199 mg/dL Comment: Interpretive Data Glucose is assumed to be non-fasting. Fasting Glucose reference ranges are: 0 - 150 years: 70 mg/dL - 99 mg/dL Current interpretive data was last revised on 2013. POC Device Number [id number] 3 HERBER REINACH Blood 01/23/2025 9:51 PM CDT 01/23/2025 9:51 PM CDT Devang Henning MD LAB POCT ORDERABLES - DEVICE Final Result Performing Organization Address City/State/ZIP Co me Phone Number HERBER REINACH [phone] [facility]. [place] [address] * US Abdomen Complete (01/23/2025 9:18 PM CDT) Anatomical Region Laterality Modality Abdomen N/A Ultrasound 01/24/2025 7:47 AM CDT Impressions 01/24/2025 7:49 AM CDT 1. Echogenic kidneys in keeping with medical renal disease. 2. Simple cyst along the inferior pole of the right kidney. 3. Small volume ascites. Dictated by: Starr Riggs MD, PhD The radiology attending physician has personally reviewed this study, and had reviewed and/or edited this written report and agrees with it. Electronically signed by: Femi Tuttle M.D. Narrative 01/24/2025 7:49 AM CDT EXAMINATION: COMPLETE ABDOMINAL SONOGRAM HISTORY: 29-year-old with abdominal pain of unknown cause COMPARISON: CT abdomen and pelvis dated 01/15/2025 FINDINGS: Liver: The liver is normal in size. The echotexture is normal. The echogenicity is normal. There is no surface nodularity. No focal solid lesions are visualized. Gallbladder: The gallbladder is surgically absent. Bile Duct: There is no intrahepatic bile duct dilatation. The diameter of the common duct is 5 mm in the proximal segment and 4 mm in the mid segment and 4 mm in the distal segment. Kidneys: Bilateral kidneys are echogenic. There is no hydronephrosis in the visualized portions of the kidneys. Within the lower pole of the right kidney is simple cyst measuring 1.5 x 1.7 cm. Pancreas: The pancreas is obscured by overlying bowel gas. Spleen: The spleen is normal in size. Aorta: The proximal aorta is normal. Inferior vena cava: The proximal IVC is normal. Other Findings: There is small volume ascites along the right inferior aspect of the liver. Procedure Note Femi Tuttle MD - 01/24/2025 EXAMINATION: COMPLETE ABDOMINAL SONOGRAM HISTORY: 29-year-old with abdominal pain of unknown cause COMPARISON: CT abdomen and pelvis dated 01/15/2025 FINDINGS: Liver: The liver is normal in size. The echotexture is normal. The echogenicity is normal. There is no surface nodularity. No focal solid lesions are visualized. Gallbladder: The gallbladder is surgically absent. Bile Duct: There is no intrahepatic bile duct dilatation. The diameter of the common duct is 5 mm in the proximal segment and 4 mm in the mid segment and 4 mm in the distal segment. Kidneys: Bilateral kidneys are echogenic. There is no hydronephrosis in the visualized portions of the kidneys. Within the lower pole of the right kidney is simple cyst measuring 1.5 x 1.7 cm. Pancreas: The pancreas is obscured by overlying bowel gas. Spleen: The spleen is normal in size. Aorta: The proximal aorta is normal. Inferior vena cava: The proximal IVC is normal. Other Findings: There is small volume ascites along the right inferior aspect of the liver. IMPRESSION: 1. Echogenic kidneys in keeping with medical renal disease. 2. Simple cyst along the inferior pole of the right kidney. 3. Small volume ascites. Dictated by: Starr Riggs MD, PhD The radiology attending physician has personally reviewed this study, and had reviewed and/or edited this written report and agrees with it. Electronically signed by: Femi Tuttle M.D. us Devang Henning MD IMG US PROCEDURES Fi nal Result * (ABNORMAL) POCT glucose (01/23/2025 4:58 PM CDT) Glucose, POC 219(H) 70 - 199 mg/dL Comment: Interpretive Data Glucose is assumed to be non-fasting. Fasting Glucose reference ranges are: 0 - 150 years: 70 mg/dL - 99 mg/dL Current interpretive data was last revised on 2013. POC Device Number [id number] 3 [facility] Blood 01/23/2025 4:58 PM CDT 01/23/2025 4:58 PM CDT Devang Henning MD LAB POCT ORDERABLES - DEVICE Final Result Performing Organization Address [facility] Co de Phone Number HERBER BJWCH [address] [facility] [place] [address] * POCT glucose (01/23/2025 12:15 PM CDT) Glucose, POC 107 70 - 199 mg/dL Comment: Interpretive Data Glucose is assumed to be non-fasting. Fasting Glucose reference ranges are: 0 - 150 years: 70 mg/dL - 99 mg/dL Current interpretive data was last revised on 2013. POC Device Number [id number] 3 [facility] Blood 01/23/2025 12:1 5 PM CDT 01/23/2025 12:15 PM CDT Devang Henning MD LAB POCT ORDERABLES - DEVICE Final Result Performing Organization Address [facility] de Phone Number HERBER BJWCH [address] [facility] [place] [address] * (ABNORMAL) eGFR (01/23/2025 6:36 AM CDT) eGFR 7(L) >=60 mL/min/1. 73 m2 Comment: Interpretive Data [...] interpretive data was last reviewed 2021. Blood 01/23/2025 6:36 AM CDT 01/23/2025 6:41 AM CDT us Jeffrey Osorio MD PhD LAB BLOOD ORDERABLES Final Res ult [facility] [address] [facility]. [place] [address] * (ABNORMAL) Renal function panel (01/23/2025 6:36 AM CDT) Sodium 136 135 - 145 mmol/L Potassium, pl 6.1(H) 3.3 - 4.9 mmol/L [facility] Chloride 97 97 - 110 mmol/L [facility] CO2 27 22 - 32 mmol/L [facility] Anion gap 12 2 - 15 mmol/L [facility] BUN 76(H) 6 - 25 mg/dL [facility] Creatinine 7.40(H) 0.60 - 1.10 mg/dL [facility] Glucose 190 70 - 199 mg/dL [facility] Comment: Interpretive Data Fasting glucose >/= 126 [...] interpretive data was last revised 2022. Calcium 9.2 8.5 - 10.3 mg/dL [facility] Phosphorus, pl 5.0(H) 2.3 - 4.5 mg/dL [facility] Albumin 3.7 3.5 - 5.0 g/dL [facility] Blood 01/23/2025 6:36 AM CDT 01/23/2025 6:41 AM CDT Jeffrey Osorio MD PhD LAB BLOOD ORDERABLES Final Res ult Performing Organization Address [facility] Co de Phone Number HERBER JIMENEZCH [address] [facility]. [facility] [place] [address] * (ABNORMAL) POCT glucose (01/23/2025 6:17 AM CDT) Glucose, POC 217(H) 70 - 199 mg/dL Comment: Interpretive Data Glucose is assumed to be non-fasting. Fasting Glucose reference ranges are: 0 - 150 years: 70 mg/dL - 99 mg/dL Current interpretive data was last revised on 2013. POC Device Number [id number] 1 HERBER MARCANO Blood 01/23/2025 6:17 AM CDT 01/23/2025 6:17 AM CDT Devang Henning MD LAB POCT ORDERABLES - DEVICE Final Result Performing Organization Address [facility] de Phone Number [facility] [address] [facility] [place] [address] * (ABNORMAL) POCT glucose (01/23/2025 2:08 AM CDT) Glucose, POC 229(H) 70 - 199 mg/dL Comment: Interpretive Data Glucose is assumed to be non-fasting. Fasting Glucose reference ranges are: 0 - 150 years: 70 mg/dL - 99 mg/dL Current interpretive data was last revised on 2013. POC Device Number [id number] 3 CERNER BARBARAWCH Blood 01/23/2025 2:08 AM CDT 01/23/2025 2:08 AM CDT us Jeffrey Osorio MD PhD LAB POCT ORDERABLES - DEVICE F inal Result Performing Organization Address [facility] Co de Phone Number HERBER [facility] [address] [facility]. [facility] [place] [address] * POCT glucose (01/22/2025 11:38 PM CDT) Glucose, POC 195 70 - 199 mg/dL Comment: Interpretive Data Glucose is assumed to be non-fasting. Fasting Glucose reference ranges are: 0 - 150 years: 70 mg/dL - 99 mg/dL Current interpretive data was last revised on 2013. POC Device Number [id number] 3 HERBER MARCANO Blood 01/22/2025 11:3 8 PM CDT 01/22/2025 11:38 PM CDT Jeffrey Osorio MD PhD LAB POCT ORDERABLES - DEVICE F inal Result Performing Organization Address [facility] Co de Phone Number [facility] [phone] [address] [facility] [place] [address] * POCT glucose (01/22/2025 8:14 PM CDT) Glucose, POC 125 70 - 199 mg/dL Comment: Interpretive Data Glucose is assumed to be non-fasting. Fasting Glucose reference ranges are: 0 - 150 years: 70 mg/dL - 99 mg/dL Current interpretive data was last revised on 2013. POC Device Number [id number] 3 HERBER MARCANO Blood 01/22/2025 8:14 PM CDT 01/22/2025 8:14 PM CDT Jeffrey Osorio MD PhD LAB POCT ORDERABLES - DEVICE F inal Result Performing Organization Address [facility]/ZIP Co de Phone Number [facility] [address] [facility] Hospital[facility]. [facility] [place] [address] * POCT glucose (01/22/2025 5:25 PM CDT) Glucose, POC 112 70 - 199 mg/dL Comment: Interpretive Data Glucose is assumed to be non-fasting. Fasting Glucose reference ranges are: 0 - 150 years: 70 mg/dL - 99 mg/dL Current interpretive data was last revised on 2013. POC Device Number [id number] 4 HERBER REINACH Blood 01/22/2025 5:25 PM CDT 01/22/2025 5:25 PM CDT us Jeffrey Osorio MD PhD LAB POCT ORDERABLES - DEVICE F inal Result Performing Organization Address [facility] Phone Number [facility] [address] [facility] [place] [address] * POCT glucose (01/22/2025 2:24 PM CDT) Glucose, POC 129 70 - 199 mg/dL Comment: Interpretive Data Glucose is assumed to be non-fasting. Fasting Glucose reference ranges are: 0 - 150 years: 70 mg/dL - 99 mg/dL Current interpretive data was last revised on 2013. POC Device Number [id number] 4 HERBER MARCANO Blood 01/22/2025 2:24 PM CDT 01/22/2025 2:24 PM CDT us Jeffrey Osorio MD PhD LAB POCT ORDERABLES - DEVICE F inal Result Performing Organization Address [facility] de Phone Number [facility] [address] [facility] [place] [address] * POCT glucose (01/22/2025 10:26 AM CDT) Glucose, POC 133 70 - 199 mg/dL Comment: Interpretive Data Glucose is assumed to be non-fasting. Fasting Glucose reference ranges are: 0 - 150 years: 70 mg/dL - 99 mg/dL Current interpretive data was last revised on 2013. POC Device Number [id number] 3 BERLINNER BARBARAWCH Blood 01/22/2025 10:2 6 AM CDT 01/22/2025 10:26 AM CDT us Jeffrey Osorio MD PhD LAB POCT ORDERABLES - DEVICE F inal Result Performing Organization Address [facility] de Phone Number HERBER JIMENEZCH [address] [facility]. [facility] [place] [address] * POCT glucose (01/22/2025 6:07 AM CDT) Glucose, POC 109 70 - 199 mg/dL Comment: Interpretive Data Glucose is assumed to be non-fasting. Fasting Glucose reference ranges are: 0 - 150 years: 70 mg/dL - 99 mg/dL Current interpretive data was last revised on 2013. POC Device Number [id number] 4 CERLULY JIMENEZWCH Blood 01/22/2025 6:07 AM CDT 01/22/2025 6:07 AM CDT Jeffrey Osorio MD PhD LAB POCT ORDERABLES - DEVICE F inal Result Performing Organization Address [facility] de Phone Number [facility]BER [facility] [address] [facility]. [facility] [place] [address] * POCT glucose (01/22/2025 2:15 AM CDT) Glucose, POC 190 70 - 199 mg/dL Comment: Interpretive Data Glucose is assumed to be non-fasting. Fasting Glucose reference ranges are: 0 - 150 years: 70 mg/dL - 99 mg/dL Current interpretive data was last revised on 2013. POC Device Number [id number] 3 HERBER JIMENEZWCH Blood 01/22/2025 2:15 AM CDT 01/22/2025 2:15 AM CDT us Jeffrey Osorio MD PhD LAB POCT ORDERABLES - DEVICE F inal Result Performing Organization Address [facility] Co de Phone Number HERBER BJWCH [address] [facility]. [facility] [place] [address] * (ABNORMAL) POCT glucose (01/21/2025 10:28 PM CDT) Glucose, POC 340(H) 70 - 199 mg/dL Comment: Interpretive Data Glucose is assumed to be non-fasting. Fasting Glucose reference ranges are: 0 - 150 years: 70 mg/dL - 99 mg/dL Current interpretive data was last revised on 2013. POC Device Number [id number] 4 HERBER MARCANO Blood 01/21/2025 10:2 8 PM CDT 01/21/2025 10:28 PM CDT Jeffrey Osorio MD PhD LAB POCT ORDERABLES - DEVICE F inal Result Performing Organization Address [facility] de Phone Number [facility] [address] [facility] [employer] [place], [place] [id number] * POCT glucose (01/21/2025 5:23 PM CDT) Glucose, POC 195 70 - 199 mg/dL Comment: Interpretive Data Glucose is assumed to be non-fasting. Fasting Glucose reference ranges are: 0 - 150 years: 70 mg/dL - 99 mg/dL Current interpretive data was last revised on 2013. POC Device Number [id number] 4 HERBER MARCANO Blood 01/21/2025 5:23 PM CDT 01/21/2025 5:23 PM CDT Jeffrey Osorio MD PhD LAB POCT ORDERABLES - DEVICE F inal Result Performing Organization Address [facility] de Phone Number [facility] [address] [facility] HospitalnetFactor[facility] [employer] [place], [place] [id number] * POCT glucose (01/21/2025 12:29 PM CDT) Glucose, POC 194 70 - 199 mg/dL Comment: Interpretive Data Glucose is assumed to be non-fasting. Fasting Glucose reference ranges are: 0 - 150 years: 70 mg/dL - 99 mg/dL Current interpretive data was last revised on 2013. POC Device Number [id number] 3 HERBER MARCANO Blood 01/21/2025 12:2 9 PM CDT 01/21/2025 12:29 PM CDT us Jeffrey Osorio MD PhD LAB POCT ORDERABLES - DEVICE F inal Result Performing Organization Address [facility] Phone Number HERBER JIMENEZCH [address] [place] [address] * POCT glucose (01/21/2025 8:02 AM CDT) Glucose, POC 160 70 - 199 mg/dL Comment: Interpretive Data Glucose is assumed to be non-fasting. Fasting Glucose reference ranges are: 0 - 150 years: 70 mg/dL - 99 mg/dL Current interpretive data was last revised on 2013. POC Device Number [id number] 3 HERBER MARCANO Blood 01/21/2025 8:02 AM CDT 01/21/2025 8:02 AM CDT us Jeffrey Osorio MD PhD LAB POCT ORDERABLES - DEVICE F inal Result Performing Organization Address [facility] Phone Number HERBER JIMENEZCH [address] [place] [address] * POCT glucose (01/21/2025 6:05 AM CDT) Glucose, POC 184 70 - 199 mg/dL Comment: Interpretive Data Glucose is assumed to be non-fasting. Fasting Glucose reference ranges are: 0 - 150 years: 70 mg/dL - 99 mg/dL Current interpretive data was last revised on 2013. POC Device Number [id number] 3 HERBER MARCANO Blood 01/21/2025 6:05 AM CDT 01/21/2025 6:05 AM CDT us Jeffrey Osorio MD PhD LAB POCT ORDERABLES - DEVICE F inal Result Performing Organization Address [facility]/ZIP Co de Phone Number HERBER JIMENEZWCH [address] [facility] Hospital[facility] [employer] [place], [place] [id number] * POCT glucose (01/21/2025 1:50 AM CDT) Glucose, POC 78 70 - 199 mg/dL Comment: Interpretive Data Glucose is assumed to be non-fasting. Fasting Glucose reference ranges are: 0 - 150 years: 70 mg/dL - 99 mg/dL Current interpretive data was last revised on 2013. POC Device Number [id number] 3 HERBER MARCANO Blood 01/21/2025 1:50 AM CDT 01/21/2025 1:50 AM CDT us Jeffrey Osorio MD PhD LAB POCT ORDERABLES - DEVICE F inal Result Performing Organization Address [facility] de Phone Number [facility] [address] [facility]. [facility] [employer] [place], [place] [id number] * POCT glucose (01/20/2025 9:49 PM CDT) Glucose, POC 138 70 - 199 mg/dL Comment: Interpretive Data Glucose is assumed to be non-fasting. Fasting Glucose reference ranges are: 0 - 150 years: 70 mg/dL - 99 mg/dL Current interpretive data was last revised on 2013. POC Device Number [id number] 3 HERBER MARCANO Blood 01/20/2025 9:49 PM CDT 01/20/2025 9:49 PM CDT us Jeffrey Osorio MD PhD LAB POCT ORDERABLES - DEVICE F inal Result Performing Organization Address [facility] Co de Phone Number [facility] [address] [facility] [employer] [place], [place] [id number] * POCT glucose (01/20/2025 4:28 PM CDT) Glucose, POC 129 70 - 199 mg/dL Comment: Interpretive Data Glucose is assumed to be non-fasting. Fasting Glucose reference ranges are: 0 - 150 years: 70 mg/dL - 99 mg/dL Current interpretive data was last revised on 2013. POC Device Number [id number] 3 CERLULY REINALumenergi Blood 01/20/2025 4:28 PM CDT 01/20/2025 4:28 PM CDT Jeffrey Osorio MD PhD LAB POCT ORDERABLES - DEVICE F inal Result Performing Organization Address [facility] de Phone Number [facility] [address] [facility] [employer] [place], [place] [id number] * POCT glucose (01/20/2025 1:07 PM CDT) [facility] Glucose, POC 102 70 - 199 mg/dL Comment: Interpretive Data Glucose is assumed to be non-fasting. Fasting Glucose reference ranges are: 0 - 150 years: 70 mg/dL - 99 mg/dL Current interpretive data was last revised on 2013. POC Device Number [id number] 3 BERLINNER BARBARAWCH Blood 01/20/2025 1:07 PM CDT 01/20/2025 1:07 PM CDT us Jeffrey Osorio MD PhD LAB POCT ORDERABLES - DEVICE F inal Result Performing Organization Address [facility] de Phone Number [facility] [address] [facility] netFactorEn[facility] [place] [address] * (ABNORMAL) eGFR (01/20/2025 10:23 AM CDT) eGFR 11(L) >=60 mL/min/1. 73 m2 [...] interpretive data was last reviewed 2021. Blood 01/20/2025 10:2 3 AM CDT 01/20/2025 10:26 AM CDT us Jeffrey Osorio MD PhD LAB BLOOD ORDERABLES Final Res ult [facility] [address] [facility]. [place] [address] * Differential, auto (01/20/2025 10:23 AM CDT) Neutrophil abs 2.98 1.50 - 6.50 K/cumm Imm gran abs 0.01 0.00 - 0.10 K/cumm CERNER B[facility] Lymphocyte abs 1.16 0.80 - 3.30 K/cumm CERNER [facility] Monocyte abs 0.34 0.20 - 0.80 K/cumm CERNER [facility] Eosinophil abs 0.12 0.00 - 0.50 K/cumm CERNER [facility] Basophil abs 0.00 0.00 - 0.10 K/cumm CERNER B[facility] Neutrophil pct 64.6 % CERLULY BJW Comment: Interpretive Data Percent cell count reference ranges are not reported, since discordance with absolute values may lead to misinterpretation of CBC data. Current Interpretive Data was last revised on 2017. Imm gran pct 0.2 % HERBER REINA Comment: Interpretive Data Percent cell count reference ranges are not reported, since discordance with absolute values may lead to misinterpretation of CBC data. Current Interpretive Data was last revised on 2017. Lymphocyte pct 25.2 % [facility] Comment: Interpretive Data Percent cell count reference ranges are not reported, since discordance with absolute values may lead to misinterpretation of CBC data. Current Interpretive Data was last revised on 2017. Monocyte pct 7.4 % [facility] Comment: Interpretive Data Percent cell count reference ranges are not reported, since discordance with absolute values may lead to misinterpretation of CBC data. Current Interpretive Data was last revised on 2017. Eosinophil pct 2.6 % CERNER [facility] Comment: Interpretive Data Percent cell count reference ranges are not reported, since discordance with absolute values may lead to misinterpretation of CBC data. Current Interpretive Data was last revised on 2017. Basophil pct 0.0 % HERBER [facility] Comment: Interpretive Data Percent cell count reference ranges are not reported, since discordance with absolute values may lead to misinterpretation of CBC data. Current Interpretive Data was last revised on 2017. Blood 01/20/2025 10:2 3 AM CDT 01/20/2025 10:26 AM CDT us Jeffrey Osorio MD PhD LAB BLOOD ORDERABLES Final Res ult [facility] [address] [facility]. Department of Laboratories [place], [place] [id number] * (ABNORMAL) CBC with auto differential (01/20/2025 10:23 AM CDT) WBC 4.61 3.80 - 9.90 K/cumm Hgb 8.2(L) 11.9 - 15.5 g/dL [facility] Hct 26.9(L) 35.6 - 45.5 % [facility] Plt 309 150 - 400 K/cumm [facility] MPV 10.8 9.1 - 12.3 fL [facility] RBC 2.89(L) 3.90 - 5.20 M/cumm [facility] MCV 93.1 81.3 - 96.4 fL [facility] MCH 28.4 27.1 - 33.3 pg [facility] MCHC 30.5(L) 32.3 - 35.7 g/dL CERNER [facility] RDW CV 15.2(H) 11.1 - 14.9 % CERNER [facility] RDW SD 51.6(H) 35.7 - 48.1 fL [facility] NRBC abs 0.00 0.00 - 0.01 K/cumm [facility] Blood 01/20/2025 10:2 3 AM CDT 01/20/2025 10:26 AM CDT us Jeffrey Osorio MD PhD LAB BLOOD ORDERABLES Final Res ult [facility] [address] [facility]. [place] [address] * (ABNORMAL) Renal function panel (01/20/2025 10:23 AM CDT) Sodium 137 135 - 145 mmol/L Potassium, pl 5.0(H) 3.3 - 4.9 mmol/L CERNER W Chloride 100 97 - 110 mmol/L [facility] CO2 28 22 - 32 mmol/L CERNER [facility] Anion gap 9 2 - 15 mmol/L [facility] BUN 42(H) 6 - 25 mg/dL [facility] Creatinine 4.95(H) 0.60 - 1.10 mg/dL CERNER [facility] Glucose 110 70 - 199 mg/dL [facility] Comment: Interpretive Data Fasting glucose >/= 126 [...] 2022. Calcium 8.2(L) 8.5 - 10.3 mg/dL CERNER [facility] Phosphorus, pl 3.7 2.3 - 4.5 mg/dL [facility] Albumin 3.6 3.5 - 5.0 g/dL HERBER MARCANO Blood 01/20/2025 10:2 3 AM CDT 01/20/2025 10:26 AM CDT us Jeffrey Osorio MD PhD LAB BLOOD ORDERABLES Final Res ult Performing Organization Address [facility] de Phone Number [facility] [address] [facility] [place] [address] * POCT glucose (01/20/2025 9:51 AM CDT) Glucose, POC 111 70 - 199 mg/dL Comment: Interpretive Data Glucose is assumed to be non-fasting. Fasting Glucose reference ranges are: 0 - 150 years: 70 mg/dL - 99 mg/dL Current interpretive data was last revised on 2013. POC Device Number [id number] 3 HERBER MARCANO Blood 01/20/2025 9:51 AM CDT 01/20/2025 9:51 AM CDT us Jeffrey Osorio MD PhD LAB POCT ORDERABLES - DEVICE F inal Result Performing Organization Address [facility] Phone Number [facility] [address] [facility] [place] [address] * POCT glucose (01/20/2025 8:45 AM CDT) Glucose, POC 115 70 - 199 mg/dL Comment: Interpretive Data Glucose is assumed to be non-fasting. Fasting Glucose reference ranges are: 0 - 150 years: 70 mg/dL - 99 mg/dL Current interpretive data was last revised on 2013. POC Device Number [id number] 3 HERBER MARCANO Blood 01/20/2025 8:45 AM CDT 01/20/2025 8:45 AM CDT us Jeffrey Osorio MD PhD LAB POCT ORDERABLES - DEVICE F inal Result Performing Organization Address [facility] de Phone Number HERBER JIMENEZCH [address] [facility]. [facility] [place] [address] * (ABNORMAL) POCT glucose (01/20/2025 8:02 AM CDT) Glucose, POC 67(L) 70 - 199 mg/dL Comment: Interpretive Data Glucose is assumed to be non-fasting. Fasting Glucose reference ranges are: 0 - 150 years: 70 mg/dL - 99 mg/dL Current interpretive data was last revised on 2013. POC Device Number [id number] 3 HERBER MARCANO Blood 01/20/2025 8:02 AM CDT 01/20/2025 8:02 AM CDT Jeffrey Osorio MD PhD LAB POCT ORDERABLES - DEVICE F inal Result Performing Organization Address [facility] de Phone Number [facility] [address] [facility]. [facility] [place] [address] * POCT glucose (01/20/2025 5:49 AM CDT) Glucose, POC 122 70 - 199 mg/dL Comment: Interpretive Data Glucose is assumed to be non-fasting. Fasting Glucose reference ranges are: 0 - 150 years: 70 mg/dL - 99 mg/dL Current interpretive data was last revised on 2013. POC Device Number [id number] 3 HERBER MARCANO Blood 01/20/2025 5:49 AM CDT 01/20/2025 5:49 AM CDT us Jeffrey Osorio MD PhD LAB POCT ORDERABLES - DEVICE F inal Result Performing Organization Address [facility] de Phone Number [facility] [address] [facility]. [facility] [place] [address] * POCT glucose (01/20/2025 1:57 AM CDT) Glucose, POC 127 70 - 199 mg/dL Comment: Interpretive Data Glucose is assumed to be non-fasting. Fasting Glucose reference ranges are: 0 - 150 years: 70 mg/dL - 99 mg/dL Current interpretive data was last revised on 2013. POC Device Number [id number] 4 HERBER MARCANO Blood 01/20/2025 1:57 AM CDT 01/20/2025 1:57 AM CDT us Jeffrey Osorio MD PhD LAB POCT ORDERABLES - DEVICE F inal Result Performing Organization Address [facility] de Phone Number HERBER iovationWCH [address] [employer]. [facility] [place] [address] * (ABNORMAL) POCT glucose (01/19/2025 10:01 PM CDT) Glucose, POC 243(H) 70 - 199 mg/dL Comment: Interpretive Data Glucose is assumed to be non-fasting. Fasting Glucose reference ranges are: 0 - 150 years: 70 mg/dL - 99 mg/dL Current interpretive data was last revised on 2013. POC Device Number [id number] HERBER JIMENEZWCH Glucose comment 1 RN/MD Notified HERBER MARCANO Blood 01/19/2025 10:0 1 PM CDT 01/19/2025 10:01 PM CDT us Jeffrey Osorio MD PhD LAB POCT ORDERABLES - DEVICE F inal Result Performing Organization Address [facility] de Phone Number HERBER BJW[facility] [phone] [employer]. [facility] [place] [address] * POCT glucose (01/19/2025 6:01 PM CDT) Glucose, POC 98 70 - 199 mg/dL Comment: Interpretive Data Glucose is assumed to be non-fasting. Fasting Glucose reference ranges are: 0 - 150 years: 70 mg/dL - 99 mg/dL Current interpretive data was last revised on 2013. POC Device Number [id number] 4 HERBER MARCANO Blood 01/19/2025 6:01 PM CDT 01/19/2025 6:01 PM CDT us Jeffrey Osorio MD PhD LAB POCT ORDERABLES - DEVICE F inal Result Performing Organization Address [facility] de Phone Number [facility] [address] [facility] [place] [address] * POCT glucose (01/19/2025 4:18 PM CDT) Glucose, POC 75 70 - 199 mg/dL Comment: Interpretive Data Glucose is assumed to be non-fasting. Fasting Glucose reference ranges are: 0 - 150 years: 70 mg/dL - 99 mg/dL Current interpretive data was last revised on 2013. POC Device Number [id number] 4 HERBER MARCANO Blood 01/19/2025 4:18 PM CDT 01/19/2025 4:18 PM CDT us Jeffrey Osorio MD PhD LAB POCT ORDERABLES - DEVICE F inal Result Performing Organization Address [facility] Phone Number [facility]BER [facility] [address] [place] [address] * POCT glucose (01/19/2025 11:51 AM CDT) Glucose, POC 114 70 - 199 mg/dL Comment: Interpretive Data Glucose is assumed to be non-fasting. Fasting Glucose reference ranges are: 0 - 150 years: 70 mg/dL - 99 mg/dL Current interpretive data was last revised on 2013. POC Device Number [id number] 4 HERBER MARCANO Blood 01/19/2025 11:5 1 AM CDT 01/19/2025 11:51 AM CDT us Jeffrey Osorio MD PhD LAB POCT ORDERABLES - DEVICE F inal Result Performing Organization Address [facility]/ZIP Co de Phone Number HERBER REINACH [address] [facility]. [facility] [place] [address] * POCT glucose (01/19/2025 10:04 AM CDT) Glucose, POC 137 70 - 199 mg/dL Comment: Interpretive Data Glucose is assumed to be non-fasting. Fasting Glucose reference ranges are: 0 - 150 years: 70 mg/dL - 99 mg/dL Current interpretive data was last revised on 2013. POC Device Number [id number] 4 HERBER JIMENEZWCYDNEY Blood 01/19/2025 10:0 4 AM CDT 01/19/2025 10:04 AM CDT us Jeffrey Osorio MD PhD LAB POCT ORDERABLES - DEVICE F inal Result Performing Organization Address [facility] Co de Phone Number [facility] [address] [facility]. [facility] [place] [address] * POCT glucose (01/19/2025 6:33 AM CDT) Glucose, POC 71 70 - 199 mg/dL Comment: Interpretive Data Glucose is assumed to be non-fasting. Fasting Glucose reference ranges are: 0 - 150 years: 70 mg/dL - 99 mg/dL Current interpretive data was last revised on 2013. POC Device Number [id number] 3 HERBER MARCANO Blood 01/19/2025 6:33 AM CDT 01/19/2025 6:33 AM CDT us Jeffrey Osorio MD PhD LAB POCT ORDERABLES - DEVICE F inal Result Performing Organization Address [facility] Co de Phone Number [facility] B[facility] [address] [facility]. [facility] [place] [address] * POCT glucose (01/19/2025 2:13 AM CDT) Glucose, POC 104 70 - 199 mg/dL Comment: Interpretive Data Glucose is assumed to be non-fasting. Fasting Glucose reference ranges are: 0 - 150 years: 70 mg/dL - 99 mg/dL Current interpretive data was last revised on 2013. POC Device Number [id number] 3 HERBER REINACH Blood 01/19/2025 2:13 AM CDT 01/19/2025 2:13 AM CDT Jeffrey Osorio MD PhD LAB POCT ORDERABLES - DEVICE F inal Result Performing Organization Address [facility] de Phone Number [facility] [address] [facility] [place] [address] * POCT glucose (01/18/2025 9:50 PM CDT) Glucose, POC 97 70 - 199 mg/dL Comment: Interpretive Data Glucose is assumed to be non-fasting. Fasting Glucose reference ranges are: 0 - 150 years: 70 mg/dL - 99 mg/dL Current interpretive data was last revised on 2013. POC Device Number [id number] 3 HERBER JIMENEZWCH Blood 01/18/2025 9:50 PM CDT 01/18/2025 9:50 PM CDT us Jeffrey Osorio MD PhD LAB POCT ORDERABLES - DEVICE F inal Result Performing Organization Address [facility] de Phone Number [facility] [address] [facility] [place] [address] * POCT glucose (01/18/2025 5:59 PM CDT) Glucose, POC 171 70 - 199 mg/dL Comment: Interpretive Data Glucose is assumed to be non-fasting. Fasting Glucose reference ranges are: 0 - 150 years: 70 mg/dL - 99 mg/dL Current interpretive data was last revised on 2013. POC Device Number [id number] 1 CERNER BARBARAWCH Blood 01/18/2025 5:59 PM CDT 01/18/2025 5:59 PM CDT us Jeffrey Osorio MD PhD LAB POCT ORDERABLES - DEVICE F inal Result Performing Organization Address [facility] Co de Phone Number HERBER REINA [address] [facility]. [facility] [place] [address] * POCT glucose (01/18/2025 12:15 PM CDT) Glucose, POC 143 70 - 199 mg/dL Comment: Interpretive Data Glucose is assumed to be non-fasting. Fasting Glucose reference ranges are: 0 - 150 years: 70 mg/dL - 99 mg/dL Current interpretive data was last revised on 2013. POC Device Number [id number] 3 HERBER MARCANO Blood 01/18/2025 12:1 5 PM CDT 01/18/2025 12:15 PM CDT Jeffrey Osorio MD PhD LAB POCT ORDERABLES - DEVICE F inal Result Performing Organization Address [facility] de Phone Number HERBER JIMENEZCH [phone] [facility]. [facility] [place] [address] * POCT glucose (01/18/2025 6:08 AM CDT) Glucose, POC 92 70 - 199 mg/dL Comment: Interpretive Data Glucose is assumed to be non-fasting. Fasting Glucose reference ranges are: 0 - 150 years: 70 mg/dL - 99 mg/dL Current interpretive data was last revised on 2013. POC Device Number [id number] 1 HERBER MARCANO Blood 01/18/2025 6:08 AM CDT 01/18/2025 6:08 AM CDT us Jeffrey Osorio MD PhD LAB POCT ORDERABLES - DEVICE F inal Result Performing Organization Address [facility] Co de Phone Number HERBER BJCH [address] [facility] [place] [address] * POCT glucose (01/18/2025 2:09 AM CDT) Glucose, POC 107 70 - 199 mg/dL Comment: Interpretive Data Glucose is assumed to be non-fasting. Fasting Glucose reference ranges are: 0 - 150 years: 70 mg/dL - 99 mg/dL Current interpretive data was last revised on 2013. POC Device Number [id number] 4 HERBER MARCANO Blood 01/18/2025 2:09 AM CDT 01/18/2025 2:09 AM CDT Jeffrey Osorio MD PhD LAB POCT ORDERABLES - DEVICE F inal Result Performing Organization Address [facility] de Phone Number [facility] [address] [facility] [place] [address] * POCT glucose (01/17/2025 7:36 PM CDT) Glucose, POC 131 70 - 199 mg/dL Comment: Interpretive Data Glucose is assumed to be non-fasting. Fasting Glucose reference ranges are: 0 - 150 years: 70 mg/dL - 99 mg/dL Current interpretive data was last revised on 2013. POC Device Number [id number] 4 HERBER MARCANO Blood 01/17/2025 7:36 PM CDT 01/17/2025 7:36 PM CDT Jeffrey Osorio MD PhD LAB POCT ORDERABLES - DEVICE F inal Result Performing Organization Address [facility] de Phone Number [facility] BJWCH [address] [facility] [place] [address] * POCT glucose (01/17/2025 5:40 PM CDT) Glucose, POC 161 70 - 199 mg/dL Comment: Interpretive Data Glucose is assumed to be non-fasting. Fasting Glucose reference ranges are: 0 - 150 years: 70 mg/dL - 99 mg/dL Current interpretive data was last revised on 2013. POC Device Number [id number] 3 BERLINNER BARBARAWCH Blood 01/17/2025 5:40 PM CDT 01/17/2025 5:40 PM CDT us Jeffrey Osorio MD PhD LAB POCT ORDERABLES - DEVICE F inal Result Performing Organization Address [facility] de Phone Number [facility] [address] [place] [address] * POCT glucose (01/17/2025 12:02 PM CDT) Glucose, POC 149 70 - 199 mg/dL Comment: Interpretive Data Glucose is assumed to be non-fasting. Fasting Glucose reference ranges are: 0 - 150 years: 70 mg/dL - 99 mg/dL Current interpretive data was last revised on 2013. POC Device Number [id number] 4 BERLINNER BARBARAWCH Blood 01/17/2025 12:0 2 PM CDT 01/17/2025 12:02 PM CDT us Jeffrey Osorio MD PhD LAB POCT ORDERABLES - DEVICE F inal Result Performing Organization Address [facility] Phone Number [facility] [address] [place] [address] * POCT glucose (01/17/2025 8:19 AM CDT) Glucose, POC 198 70 - 199 mg/dL Comment: Interpretive Data Glucose is assumed to be non-fasting. Fasting Glucose reference ranges are: 0 - 150 years: 70 mg/dL - 99 mg/dL Current interpretive data was last revised on 2013. POC Device Number [id number] 1 CERNER BARBARAWCH Blood 01/17/2025 8:19 AM CDT 01/17/2025 8:19 AM CDT us Jeffrey Osorio MD PhD LAB POCT ORDERABLES - DEVICE F inal Result Performing Organization Address [facility] de Phone Number HERBER JIMENEZCH [address] [facility] [employer] [place], [place] [id number] * POCT glucose (01/17/2025 3:39 AM CDT) Glucose, POC 98 70 - 199 mg/dL Comment: Interpretive Data Glucose is assumed to be non-fasting. Fasting Glucose reference ranges are: 0 - 150 years: 70 mg/dL - 99 mg/dL Current interpretive data was last revised on 2013. POC Device Number [id number] 1 HERBER MARCANO Blood 01/17/2025 3:39 AM CDT 01/17/2025 3:39 AM CDT Jeffrey Osorio MD PhD LAB POCT ORDERABLES - DEVICE F inal Result Performing Organization Address [facility] de Phone Number HERBER JIMENEZCH [address] [facility]. [facility] [place] [address] * POCT glucose (01/17/2025 1:03 AM CDT) Glucose, POC 101 70 - 199 mg/dL Comment: Interpretive Data Glucose is assumed to be non-fasting. Fasting Glucose reference ranges are: 0 - 150 years: 70 mg/dL - 99 mg/dL Current interpretive data was last revised on 2013. POC Device Number [id number] 4 HERBER JIMENEZWCYDNEY Blood 01/17/2025 1:03 AM CDT 01/17/2025 1:03 AM CDT us Jeffrey Osorio MD PhD LAB POCT ORDERABLES - DEVICE F inal Result Performing Organization Address [facility] de Phone Number HERBER BJWCH [address] [facility]. [facility] [place] [address] * POCT glucose (01/16/2025 11:58 PM CDT) Glucose, POC 110 70 - 199 mg/dL Comment: Interpretive Data Glucose is assumed to be non-fasting. Fasting Glucose reference ranges are: 0 - 150 years: 70 mg/dL - 99 mg/dL Current interpretive data was last revised on 2013. POC Device Number [id number] 4 HERBER REINACH Blood 01/16/2025 11:5 8 PM CDT 01/16/2025 11:58 PM CDT Jeffrey Osorio MD PhD LAB POCT ORDERABLES - DEVICE F inal Result Performing Organization Address [facility] de Phone Number [facility] [address] [facility] [employer] [place], [place] [id number] * POCT glucose (01/16/2025 11:40 PM CDT) Glucose, POC 98 70 - 199 mg/dL Comment: Interpretive Data Glucose is assumed to be non-fasting. Fasting Glucose reference ranges are: 0 - 150 years: 70 mg/dL - 99 mg/dL Current interpretive data was last revised on 2013. POC Device Number [id number] 4 HERBER JIMENEZWCH Blood 01/16/2025 11:4 0 PM CDT 01/16/2025 11:40 PM CDT Jeffrey Osorio MD PhD LAB POCT ORDERABLES - DEVICE F inal Result Performing Organization Address [facility] de Phone Number [facility] [address] [facility] [place] [address] * POCT glucose (01/16/2025 11:23 PM CDT) Glucose, POC 93 70 - 199 mg/dL Comment: Interpretive Data Glucose is assumed to be non-fasting. Fasting Glucose reference ranges are: 0 - 150 years: 70 mg/dL - 99 mg/dL Current interpretive data was last revised on 2013. POC Device Number [id number] 4 BERLINNER BARBARAWCH Blood 01/16/2025 11:2 3 PM CDT 01/16/2025 11:23 PM CDT us Jeffrey Osorio MD PhD LAB POCT ORDERABLES - DEVICE F inal Result Performing Organization Address [facility] Co de Phone Number [facility] [address] [facility] [place] [address] * (ABNORMAL) POCT glucose (01/16/2025 11:04 PM CDT) Glucose, POC 57(L) 70 - 199 mg/dL Comment: Interpretive Data Glucose is assumed to be non-fasting. Fasting Glucose reference ranges are: 0 - 150 years: 70 mg/dL - 99 mg/dL Current interpretive data was last revised on 2013. POC Device Number [id number] 4 BERLINNER BARBARAWCH Blood 01/16/2025 11:0 4 PM CDT 01/16/2025 11:04 PM CDT us Jeffrey Osorio MD PhD LAB POCT ORDERABLES - DEVICE F inal Result Performing Organization Address [facility] de Phone Number HERBER [facility] [address] [facility] [place] [address] * (ABNORMAL) POCT glucose (01/16/2025 10:46 PM CDT) Glucose, POC 58(L) 70 - 199 mg/dL Comment: Interpretive Data Glucose is assumed to be non-fasting. Fasting Glucose reference ranges are: 0 - 150 years: 70 mg/dL - 99 mg/dL Current interpretive data was last revised on 2013. POC Device Number [id number] 4 HERBER JIMENEZWCH Blood 01/16/2025 10:4 6 PM CDT 01/16/2025 10:46 PM CDT us Jeffrey Osorio MD PhD LAB POCT ORDERABLES - DEVICE F inal Result Performing Organization Address [facility] Co de Phone Number HERBER [facility] [address] [facility]. [facility] [place] [address] * POCT glucose (01/16/2025 7:48 PM CDT) Glucose, POC 186 70 - 199 mg/dL Comment: Interpretive Data Glucose is assumed to be non-fasting. Fasting Glucose reference ranges are: 0 - 150 years: 70 mg/dL - 99 mg/dL Current interpretive data was last revised on 2013. POC Device Number [id number] 4 HERBER REINA Blood 01/16/2025 7:48 PM CDT 01/16/2025 7:48 PM CDT Jeffrey Osorio MD PhD LAB POCT ORDERABLES - DEVICE F inal Result Performing Organization Address [facility] Co de Phone Number [facility] [address] [facility]. [facility] [place] [address] * POCT glucose (01/16/2025 4:32 PM CDT) Glucose, POC 134 70 - 199 mg/dL Comment: Interpretive Data Glucose is assumed to be non-fasting. Fasting Glucose reference ranges are: 0 - 150 years: 70 mg/dL - 99 mg/dL Current interpretive data was last revised on 2013. POC Device Number [id number] 4 [facility] Blood 01/16/2025 4:32 PM CDT 01/16/2025 4:32 PM CDT Jeffrey Osorio MD PhD LAB POCT ORDERABLES - DEVICE F inal Result Performing Organization Address City/[facility]/ZIP Co de Phone Number [facility] [address] [facility] [place] [address] * POCT glucose (01/16/2025 12:40 PM CDT) Glucose, POC 195 70 - 199 mg/dL Comment: Interpretive Data Glucose is assumed to be non-fasting. Fasting Glucose reference ranges are: 0 - 150 years: 70 mg/dL - 99 mg/dL Current interpretive data was last revised on 2013. POC Device Number [id number] 4 CERNER BARBARAWCH Blood 01/16/2025 12:4 0 PM CDT 01/16/2025 12:40 PM CDT us Jeffrey Osorio MD PhD LAB POCT ORDERABLES - DEVICE F inal Result Performing Organization Address [facility] de Phone Number [facility] [address] [facility] [employer] [place], [place] [id number] * (ABNORMAL) POCT glucose (01/16/2025 9:13 AM CDT) Pathologist [facility] Glucose, POC 210(H) 70 - 199 mg/dL Comment: Interpretive Data Glucose is assumed to be non-fasting. Fasting Glucose reference ranges are: 0 - 150 years: 70 mg/dL - 99 mg/dL Current interpretive data was last revised on 2013. POC Device Number [id number] 4 Le CicogneWLumenergi Blood 01/16/2025 9:13 AM CDT 01/16/2025 9:13 AM CDT us Jeffrey Osorio MD PhD LAB POCT ORDERABLES - DEVICE F inal Result Performing Organization Address [facility] Phone Number [facility] B[facility]WCH [address] [facility] [employer] [place], [place] [id number] * (ABNORMAL) eGFR (01/16/2025 6:49 AM CDT) eGFR 7(L) >=60 mL/min/1. 73 m2 Comment: Interpretive Data [...] interpretive data was last reviewed 2021. Blood 01/16/2025 6:49 AM CDT 01/16/2025 7:02 AM CDT us Parag Xie MD LAB BLOOD ORDERABLES Marli lipscomb Result HERBER REINA [address] [facility] [address] * (ABNORMAL) CBC without differential (01/16/2025 6:49 AM CDT) WBC 5.02 3.80 - 9.90 K/cumm Hgb 10.1(L) 11.9 - 15.5 g/dL [facility] BJW Hct 32.7(L) 35.6 - 45.5 % [facility] Plt 396 150 - 400 K/cumm [facility] BJW MPV 10.3 9.1 - 12.3 fL [facility] RBC 3.61(L) 3.90 - 5.20 M/cumm [facility] MCV 90.6 81.3 - 96.4 fL [facility] MCH 28.0 27.1 - 33.3 pg [facility] MCHC 30.9(L) 32.3 - 35.7 g/dL [facility] RDW CV 15.4(H) 11.1 - 14.9 % CERNER [facility] RDW SD 50.6(H) 35.7 - 48.1 fL [facility] B[facility] NRBC abs 0.00 0.00 - 0.01 K/cumm [facility] Blood 01/16/2025 6:49 AM CDT 01/16/2025 7:01 AM CDT Parag Xie MD LAB BLOOD ORDERABLES Marli lipscomb Result Performing Organization Address [facility]/ZIP Co de Phone Number HERBER MARCANO [address] [facility] [place] [address] * (ABNORMAL) Basic metabolic panel (01/16/2025 6:49 AM CDT) [facility] Sodium 137 135 - 145 mmol/L Potassium, pl 4.5 3.3 - 4.9 mmol/L CERNER BJW Chloride 97 97 - 110 mmol/L C[facility]ER [facility] CO2 26 22 - 32 mmol/L [facility] Anion gap 14 2 - 15 mmol/L [facility] BUN 68(H) 6 - 25 mg/dL CERNER [facility] Creatinine 7.90(H) 0.60 - 1.10 mg/dL [facility] Glucose 126 70 - 199 mg/dL [facility] Comment: Interpretive Data Fasting glucose >/= [...] interpretive data was last revised 2022. Calcium 8.7 8.5 - 10.3 mg/dL [facility] Blood 01/16/2025 6:49 AM CDT 01/16/2025 7:01 AM CDT Parag Xie MD LAB BLOOD ORDERABLES Marli lipscomb Result Performing Organization Address [facility] Co de Phone Number HERBER JIMENEZWCH [address] [facility] [place] [address] * POCT glucose (01/16/2025 3:16 AM CDT) Glucose, POC 112 70 - 199 mg/dL Comment: Interpretive Data Glucose is assumed to be non-fasting. Fasting Glucose reference ranges are: 0 - 150 years: 70 mg/dL - 99 mg/dL Current interpretive data was last revised on 2013. POC Device Number [id number] 1 HERBER MARCANO Blood 01/16/2025 3:16 AM CDT 01/16/2025 3:16 AM CDT Parag Xie MD LAB POCT ORDERABLES - DEV ICE Final Result Performing Organization Address [facility] de Phone Number [facility] [address] [facility] [employer] [place], [place] [id number] * POCT glucose (01/15/2025 11:41 PM CDT) Glucose, POC 72 70 - 199 mg/dL Comment: Interpretive Data Glucose is assumed to be non-fasting. Fasting Glucose reference ranges are: 0 - 150 years: 70 mg/dL - 99 mg/dL Current interpretive data was last revised on 2013. POC Device Number [id number] 1 HERBER MARCANO Blood 01/15/2025 11:4 1 PM CDT 01/15/2025 11:41 PM CDT Parag Xie MD LAB POCT ORDERABLES - DEV ICE Final Result Performing Organization Address [facility] de Phone Number [facility] [address] [facility] [employer] [place], [place] [id number] * POCT glucose (01/15/2025 8:45 PM CDT) Glucose, POC 85 70 - 199 mg/dL Comment: Interpretive Data Glucose is assumed to be non-fasting. Fasting Glucose reference ranges are: 0 - 150 years: 70 mg/dL - 99 mg/dL Current interpretive data was last revised on 2013. POC Device Number [id number] 1 HERBER MARCANO Blood 01/15/2025 8:45 PM CDT 01/15/2025 8:45 PM CDT Parag Xie MD LAB POCT ORDERABLES - DEV ICE Final Result Performing Organization Address [facility] Phone Number HERBER JIMENEZCH [address] [facility] [place] [address] * POCT glucose (01/15/2025 7:01 PM CDT) Glucose, POC 121 70 - 199 mg/dL Comment: Interpretive Data Glucose is assumed to be non-fasting. Fasting Glucose reference ranges are: 0 - 150 years: 70 mg/dL - 99 mg/dL Current interpretive data was last revised on 2013. POC Device Number [id number] 1 HERBER MARCANO Blood 01/15/2025 7:01 PM CDT 01/15/2025 7:01 PM CDT Parag Xie MD LAB POCT ORDERABLES - DEV ICE Final Result Performing Organization Address [facility] Phone Number HERBER JIMENEZCH [address] [facility] [place] [address] * POCT hCG, urine (01/15/2025 4:15 PM CDT) HCG, ur, POC Negative Negative Lot Number [id number] QC Backgroud Clear Acceptable QC Control Line Acceptable Urine 01/15/2025 4:15 PM CDT Odilon Correa MD PhD POINT OF CARE TEST ORDERABLES Final Result * CT Abdomen Pelvis W Contrast (01/15/2025 4:14 PM CDT) Anatomical Region Laterality Modality Body N/A Computed Tomogra phy 01/15/2025 5:02 PM CDT Impressions 01/16/2025 8:34 PM CDT 1. Interval placement of a percutaneous gastrojejunostomy without CT evidence of complication. 2. Diffuse bladder wall thickening, suggestive of cystitis. 3. Diffuse thickening of the distal esophageal wall, suggestive of esophagitis. 4. Interval increased density of a 1.6 cm lesion at the inferior pole of the right kidney, likely representing a hemorrhagic cyst, although indeterminate. Nonemergent/outpatient ultrasound can be obtained for further evaluation, if clinically indicated. 5. Heterogenous liver parenchyma, which is non-specific. 6. Superior approach central venous catheter terminates in the region of the tricuspid valve. Dictated by: Francisco Mendoza MD The radiology attending physician has personally reviewed this study, and had reviewed and/or edited this written report and agrees with it. Electronically signed by: Arielle Sharpe M.D. Narrative 01/16/2025 8:34 PM CDT EXAMINATION: Computed tomography of the abdomen and pelvis with intravenous contrast HISTORY: Patient is 29 years old and Female. Provided reason for study is epigastric abdominal pain s/p G-tube placement 1 week prior. TECHNIQUE: Transaxial computed tomographic images of the abdomen and pelvis were obtained with intravenous contrast according to the standard protocol after the administration of 100 mL Opti-Ray 350 intravenous contrast. COMPARISON: 01/09/2025 IR study and 12/25/2024 CT FINDINGS: There is a small cyst nodule in the L3 superior endplate. A left abdominal wall gastric stimulator generator is present with leads in similar position along the anterior stomach wall. There is interval placement of a percutaneous gastro-jejunostomy tube terminating in the jejunum with cuff inflated in the lumen of the stomach. A superior approach catheter terminates in the region of the tricuspid valve. There is similar scarring along the medial left lower lobe. There is persistent diffuse circumferential thickening of the distal esophagus. There are similar few tiny hypodense lesions in the liver, too small to further characterize. Mild diffuse heterogenous enhancement of the liver is present, as well as mild periportal space widening. Cholecystectomy clips are present. There is similar minimal prominence of the bile ducts, likely reservoir effect. The pancreas is normal. 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 A tiny hypodensities present in the left kidney, too small to further characterize. There is interval development of a 1.6 cm intermediate density lesion at the inferior pole of the right kidney. There is mild diffuse bladder wall thickening. The uterus is normal. Trace free fluid is present in the pelvis. There are mildly prominent retroperitoneal and bilateral iliac lymph nodes measuring up to 1.2 cm in short axis at the right external iliac chain. Prominent atherosclerotic calcifications are present in the peripheral arteries. Procedure Note Arielle Sharpe MD - 01/16/2025 EXAMINATION: Computed tomography of the abdomen and pelvis with intravenous contrast HISTORY: Patient is 29 years old and Female. Provided reason for study is epigastric abdominal pain s/p G-tube placement 1 week prior. TECHNIQUE: Transaxial computed tomographic images of the abdomen and pelvis were obtained with intravenous contrast according to the standard protocol after the administration of 100 mL Opti-Ray 350 intravenous contrast. COMPARISON: 01/09/2025 IR study and 12/25/2024 CT FINDINGS: There is a small cyst nodule in the L3 superior endplate. A left abdominal wall gastric stimulator generator is present with leads in similar position along the anterior stomach wall. There is interval placement of a percutaneous gastro-jejunostomy tube terminating in the jejunum with cuff inflated in the lumen of the stomach. A superior approach catheter terminates in the region of the tricuspid valve. There is similar scarring along the medial left lower lobe. There is persistent diffuse circumferential thickening of the distal esophagus. There are similar few tiny hypodense lesions in the liver, too small to further characterize. Mild diffuse heterogenous enhancement of the liver is present, as well as mild periportal space widening. Cholecystectomy clips are present. There is similar minimal prominence of the bile ducts, likely reservoir effect. The pancreas is normal. 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 A tiny hypodensities present in the left kidney, too small to further characterize. There is interval development of a 1.6 cm intermediate density lesion at the inferior pole of the right kidney. There is mild diffuse bladder wall thickening. The uterus is normal. Trace free fluid is present in the pelvis. There are mildly prominent retroperitoneal and bilateral iliac lymph nodes measuring up to 1.2 cm in short axis at the right external iliac chain. Prominent atherosclerotic calcifications are present in the peripheral arteries. IMPRESSION: 1. Interval placement of a percutaneous gastrojejunostomy without CT evidence of complication. 2. Diffuse bladder wall thickening, suggestive of cystitis. 3. Diffuse thickening of the distal esophageal wall, suggestive of esophagitis. 4. Interval increased density of a 1.6 cm lesion at the inferior pole of the right kidney, likely representing a hemorrhagic cyst, although indeterminate. Nonemergent/outpatient ultrasound can be obtained for further evaluation, if clinically indicated. 5. Heterogenous liver parenchyma, which is non-specific. 6. Superior approach central venous catheter terminates in the region of the tricuspid valve. Dictated by: Francisco Mendoza MD The radiology attending physician has personally reviewed this study, and had reviewed and/or edited this written report and agrees with it. Electronically signed by: Arielle Sharpe M.D. us Odilon Correa MD PhD IMG CT PROCEDURES F inal Result * (ABNORMAL) Urinalysis reflex to microscopic and culture Urine (01/15/2025 4:12 PM CDT) Color, ur Straw Yellow Clarity, ur Clear Clear [facility] Specific gravity, ur 1.013 1.003 - 1.030 [facility] pH, urine 8.0 [facility] Comment: Interpretive Data U rine pH is affected by diet, medications, systemic acid-base disturbances, and renal tubular function. pH may affect urinary stone formation. For example, urine pH below 6.0 may help reduce the tendency for calcium phosphate stones and pH greater than 6.0 may reduce the tendency for uric acid stone formation. Source: [employer] Current Interpretive Data was last revised on 2017 Protein, ur ql 3+(A) Negative [facility] Glucose, ur ql 3+(A) Negative [facility] Ketones, ur Negative Negative [facility] Bilirubin, ur Negative Negative [facility] Blood, ur Trace(A) Negative [facility] Urobilinogen, ur <2.0 <2.0 mg/dL [facility] Nitrite, ur Negative Negative [facility] Leukocyte esterase, ur Negative Negative [facility] UA reflex comment Reflex to microscopic UA will be performed. [facility] Urine 01/15/2025 4:12 PM CDT 01/15/2025 4:14 PM CDT Odilon Correa MD PhD LAB MICROBIOLOGY - GENERAL ORDERABLES Final Result Performing Organization Address [facility] de Phone Number HERBER REINACH [address] [facility] [place] [address] * (ABNORMAL) Urinalysis, microscopic only (01/15/2025 4:12 PM CDT) WBC, ur 0-5 0 - 5 /HPF RBC, ur 6-10(A) 0 - 2 /HPF [facility] Epithelial cells, squamous, ur 6-10(A) 0 - 5 /HPF [facility] Bacteria, ur 3+(A) [facility] Mucous, ur Present(A) [facility] Culture Reflex Comment Reflex conditions for urine culture (WBC >10) not met. [facility] Urine 01/15/2025 4:12 PM CDT 01/15/2025 4:14 PM CDT Odilon Correa MD PhD LAB URINE ORDERABLE S Final Result Performing Organization Address [facility] de Phone Number [facility] [address] [facility] [place] [address] * (ABNORMAL) eGFR (01/15/2025 3:18 PM CDT) eGFR 7(L) >=60 mL/min/1. 73 m2 Comment: Interpretive Data [...] interpretive data was last reviewed 2021. Blood 01/15/2025 3:18 PM CDT 01/15/2025 3:21 PM CDT us Ashlee FRANCE LAB BLOOD ORDERABLES Fin al Result [facility] [id number] [facility]. [place] [address] * Differential, auto (01/15/2025 3:18 PM CDT) Neutrophil abs 2.90 1.50 - 6.50 K/cumm Imm gran abs 0.02 0.00 - 0.10 K/cumm [facility] Lymphocyte abs 1.39 0.80 - 3.30 K/cumm [facility] Monocyte abs 0.37 0.20 - 0.80 K/cumm [facility] Eosinophil abs 0.07 0.00 - 0.50 K/cumm [facility] Basophil abs 0.01 0.00 - 0.10 K/cumm [facility] Neutrophil pct 60.9 % [facility] Comment: Interpretive Data Percent cell count reference ranges are not reported, since discordance with absolute values may lead to misinterpretation of CBC data. Current Interpretive Data was last revised on 2017. Imm gran pct 0.4 % [facility] Comment: Interpretive Data Percent cell count reference ranges are not reported, since discordance with absolute values may lead to misinterpretation of CBC data. Current Interpretive Data was last revised on 2017. Lymphocyte pct 29.2 % [facility] Comment: Interpretive Data Percent cell count reference ranges are not reported, since discordance with absolute values may lead to misinterpretation of CBC data. Current Interpretive Data was last revised on 2017. Monocyte pct 7.8 % [facility] Comment: Interpretive Data Percent cell count reference ranges are not reported, since discordance with absolute values may lead to misinterpretation of CBC data. Current Interpretive Data was last revised on 2017. Eosinophil pct 1.5 % [facility] Comment: Interpretive Data Percent cell count reference ranges are not reported, since discordance with absolute values may lead to misinterpretation of CBC data. Current Interpretive Data was last revised on 2017. Basophil pct 0.2 % [facility] Comment: Interpretive Data Percent cell count reference ranges are not reported, since discordance with absolute values may lead to misinterpretation of CBC data. Current Interpretive Data was last revised on 2017. Blood 01/15/2025 3:18 PM CDT 01/15/2025 3:21 PM CDT Ashlee FRANCE LAB BLOOD ORDERABLES Fin al Result [facility] [address] [facility]. Department [place] [address] * (ABNORMAL) CBC with auto differential (01/15/2025 3:18 PM CDT) WBC 4.76 3.80 - 9.90 K/cumm Hgb 9.5(L) 11.9 - 15.5 g/dL [facility] Hct 30.9(L) 35.6 - 45.5 % [facility] Plt 372 150 - 400 K/cumm [facility] MPV 10.4 9.1 - 12.3 fL [facility] RBC 3.40(L) 3.90 - 5.20 M/cumm [facility] MCV 90.9 81.3 - 96.4 fL [facility] MCH 27.9 27.1 - 33.3 pg [facility] MCHC 30.7(L) 32.3 - 35.7 g/dL [facility] RDW CV 15.5(H) 11.1 - 14.9 % [facility] RDW SD 50.7(H) 35.7 - 48.1 fL [facility] NRBC abs 0.00 0.00 - 0.01 K/cumm [facility] Blood Venous blood specimen / Unknown 01/15/2025 3:18 PM CDT 01/15/2025 3:21 PM CDT us Odilon Correa MD PhD LAB BLOOD ORDERABLE S Final Result HERBER REINA [address] [facility]. Department [place] [address] * (ABNORMAL) Comprehensive metabolic panel (01/15/2025 3:18 PM CDT) Sodium 139 135 - 145 mmol/L Potassium, pl 4.8 3.3 - 4.9 mmol/L [facility] Chloride 98 97 - 110 mmol/L [facility] CO2 23 22 - 32 mmol/L [facility] Anion gap 18(H) 2 - 15 mmol/L [facility] BUN 67(H) 6 - 25 mg/dL [facility] Creatinine 7.31(H) 0.60 - 1.10 mg/dL [facility] Glucose 176 70 - 199 mg/dL [facility] Comment: Interpretive Data Fasting glucose >/= 126 [...] interpretive data was last revised 2022. Calcium 8.9 8.5 - 10.3 mg/dL [facility] Bilirubin, total 0.3 0.1 - 1.2 mg/dL [facility] Protein, pl 7.0 6.5 - 8.5 g/dL [facility] Albumin 3.8 3.5 - 5.0 g/dL [facility] Alk phos 147(H) 40 - 130 Units/L [facility] ALT 36 7 - 45 Units/L [facility] AST 21 10 - 45 Units/L [facility]BER JIM[facility]W Blood Venous blood specimen / Unknown 01/15/2025 3:18 PM CDT 01/15/2025 3:21 PM CDT Odilon Correa MD PhD LAB BLOOD ORDERABLE S Final Result Performing Organization Address [facility] de Phone Number [facility] [address] [facility] [place] [address] * (ABNORMAL) POCT glucose (01/12/2025 10:49 AM CDT) Glucose, POC 270(H) 70 - 199 mg/dL Comment: Interpretive Data Glucose is assumed to be non-fasting. Fasting Glucose reference ranges are: 0 - 150 years: 70 mg/dL - 99 mg/dL Current interpretive data was last revised on 2013. POC Device Number [id number] HERBER MARCANO Blood 01/12/2025 10:4 9 AM CDT 01/12/2025 10:49 AM CDT Parag Xie MD LAB POCT ORDERABLES - DEV ICE Final Result Performing Organization Address [facility] de Phone Number [facility] [address] [facility] [place] [address] * (ABNORMAL) POCT glucose (01/12/2025 8:11 AM CDT) Glucose, POC 343(H) 70 - 199 mg/dL Comment: Interpretive Data Glucose is assumed to be non-fasting. Fasting Glucose reference ranges are: 0 - 150 years: 70 mg/dL - 99 mg/dL Current interpretive data was last revised on 2013. POC Device Number [id number] HERBER MARCANO Blood 01/12/2025 8:11 AM CDT 01/12/2025 8:11 AM CDT Parag Xie MD LAB POCT ORDERABLES - DEV ICE Final Result Performing Organization Address [facility] Co de Phone Number HERBER REINACH [address] [facility]. [facility] [place] [address] * POCT glucose (01/11/2025 11:44 PM CDT) Glucose, POC 129 70 - 199 mg/dL Comment: Interpretive Data Glucose is assumed to be non-fasting. Fasting Glucose reference ranges are: 0 - 150 years: 70 mg/dL - 99 mg/dL Current interpretive data was last revised on 2013. POC Device Number [id number] HERBER MARCANO Blood 01/11/2025 11:4 4 PM CDT 01/11/2025 11:44 PM CDT Parag Xie MD LAB POCT ORDERABLES - DEV ICE Final Result Performing Organization Address [facility] de Phone Number [facility] [address] [facility] [place] [address] * POCT glucose (01/11/2025 10:23 PM CDT) Glucose, POC 170 70 - 199 mg/dL Comment: Interpretive Data Glucose is assumed to be non-fasting. Fasting Glucose reference ranges are: 0 - 150 years: 70 mg/dL - 99 mg/dL Current interpretive data was last revised on 2013. POC Device Number [id number] HERBER MARCANO Blood 01/11/2025 10:2 3 PM CDT 01/11/2025 10:23 PM CDT Parag Xie MD LAB POCT ORDERABLES - DEV ICE Final Result Performing Organization Address City/[facility] Co de Phone Number [facility] [address] [facility]. [facility] [place] [address] * (ABNORMAL) POCT glucose (01/11/2025 8:33 PM CDT) Glucose, POC 225(H) 70 - 199 mg/dL Comment: Interpretive Data Glucose is assumed to be non-fasting. Fasting Glucose reference ranges are: 0 - 150 years: 70 mg/dL - 99 mg/dL Current interpretive data was last revised on 2013. POC Device Number [id number] 4 HERBER MARCANO Blood 01/11/2025 8:33 PM CDT 01/11/2025 8:33 PM CDT Parag Xie MD LAB POCT ORDERABLES - DEV ICE Final Result Performing Organization Address [facility] de Phone Number [facility] [address] [facility] [place] [address] * (ABNORMAL) POCT glucose (01/11/2025 7:01 PM CDT) Glucose, POC 203(H) 70 - 199 mg/dL Comment: Interpretive Data Glucose is assumed to be non-fasting. Fasting Glucose reference ranges are: 0 - 150 years: 70 mg/dL - 99 mg/dL Current interpretive data was last revised on 2013. POC Device Number [id number] 4 HERBER REINA Blood 01/11/2025 7:01 PM CDT 01/11/2025 7:01 PM CDT Parag Xie MD LAB POCT ORDERABLES - DEV ICE Final Result Performing Organization Address [facility] Co de Phone Number [facility] [address] [facility] [place] [address] * POCT glucose (01/11/2025 5:03 PM CDT) Glucose, POC 142 70 - 199 mg/dL Comment: Interpretive Data Glucose is assumed to be non-fasting. Fasting Glucose reference ranges are: 0 - 150 years: 70 mg/dL - 99 mg/dL Current interpretive data was last revised on 2013. POC Device Number [id number] 4 HERBER MARCANO Blood 01/11/2025 5:03 PM CDT 01/11/2025 5:03 PM CDT Parag Xie MD LAB POCT ORDERABLES - DEV ICE Final Result Performing Organization Address [facility] de Phone Number [facility] [address] [facility] [place] [address] * POCT glucose (01/11/2025 12:02 PM CDT) Glucose, POC 87 70 - 199 mg/dL Comment: Interpretive Data Glucose is assumed to be non-fasting. Fasting Glucose reference ranges are: 0 - 150 years: 70 mg/dL - 99 mg/dL Current interpretive data was last revised on 2013. POC Device Number [id number] 9 HERBER MARCANO Blood 01/11/2025 12:0 2 PM CDT 01/11/2025 12:02 PM CDT Parag Xie MD LAB POCT ORDERABLES - DEV ICE Final Result Performing Organization Address [facility] de Phone Number [facility] [address] [facility] [place] [address] * POCT glucose (01/11/2025 9:14 AM CDT) Glucose, POC 194 70 - 199 mg/dL Comment: Interpretive Data Glucose is assumed to be non-fasting. Fasting Glucose reference ranges are: 0 - 150 years: 70 mg/dL - 99 mg/dL Current interpretive data was last revised on 2013. POC Device Number [id number] 9 HERBER MARCANO Blood 01/11/2025 9:14 AM CDT 01/11/2025 9:14 AM CDT Parag Xie MD LAB POCT ORDERABLES - DEV ICE Final Result Performing Organization Address [facility] Co de Phone Number HERBER IJMENEZWCH [phone] [address] [facility] [employer] [place], [place] [id number] * (ABNORMAL) eGFR (01/11/2025 8:27 AM CDT) eGFR 8(L) >=60 mL/min/1. 73 [...] interpretive data was last reviewed 2021. Blood 01/11/2025 8:27 AM CDT 01/11/2025 8:35 AM CDT Lisbet Franz MD LAB BLOOD ORDERABLES Final Re sult Performing Organization Address [facility]/ZIP Co de Phone Number [facility] [phone] [address] [place] [address] * (ABNORMAL) Phosphorus (01/11/2025 8:27 AM CDT) Phosphorus, pl 6.9(H) 2.3 - 4.5 mg/dL Blood 01/11/2025 8:27 AM CDT 01/11/2025 8:35 AM CDT Narrative HERBER MARCANO - 01/11/2025 8:53 AM CDT Please draw with dialysis Lisbet Franz MD LAB BLOOD ORDERABLES Final Re sult Performing Organization Address [facility] Co de Phone Number HERBER REINACH [address] [facility] [place] [address] * Magnesium (01/11/2025 8:27 AM CDT) Pathologist [facility] Magnesium 2.4 1.4 - 2.5 mg/dL Comment: Reference Data. Reference values for Labor and Delivery patients: < or = 0.7 mg/dL to > or = 7.3 mg/dL Current reference data last reviewd on 01/16/2015. Blood 01/11/2025 8:27 AM CDT 01/11/2025 8:35 AM CDT Narrative BERLINLULY JIMENEZIramCYDNEY - 01/11/2025 8:53 AM CDT Please draw with dialysis Lisbet Franz MD LAB BLOOD ORDERABLES Final Re sult Performing Organization Address [facility] de Phone Number HERBER REINACH [address] [facility] [place] [address] * (ABNORMAL) Basic metabolic panel (01/11/2025 8:27 AM CDT) Pathologist [facility] Sodium 139 135 - 145 mmol/L Potassium, pl 4.1 3.3 - 4.9 mmol/L [facility] Chloride 103 97 - 110 mmol/L [facility] CO2 23 22 - 32 mmol/L [facility] Anion gap 13 2 - 15 mmol/L [facility] BUN 45(H) 6 - 25 mg/dL [facility] Creatinine 6.97(H) 0.60 - 1.10 mg/dL [facility] Glucose 237(H) 70 - 199 mg/dL [facility] Comment: Interpretive Data Fasting glucose >/= [...] interpretive data was last revised 2022. Calcium 7.1(L) 8.5 - 10.3 mg/dL [facility] Blood 01/11/2025 8:27 AM CDT 01/11/2025 8:35 AM CDT Narrative [facility] - 01/11/2025 8:53 AM CDT Please draw with dialysis us Lisbet Franz MD LAB BLOOD ORDERABLES Final Re sult Performing Organization Address [facility] Co de Phone Number [facility] [phone] [place] [address] * (ABNORMAL) POCT glucose (01/11/2025 7:52 AM CDT) Glucose, POC 249(H) 70 - 199 mg/dL Comment: Interpretive Data Glucose is assumed to be non-fasting. Fasting Glucose reference ranges are: 0 - 150 years: 70 mg/dL - 99 mg/dL Current interpretive data was last revised on 2013. POC Device Number [id number] 9 [facility] Blood 01/11/2025 7:52 AM CDT 01/11/2025 7:52 AM CDT us Parag Xie MD LAB POCT ORDERABLES - DEV ICE Final Result Performing Organization Address City/[facility]/ZIP Co de Phone Number [facility] [address] [facility] [place] [address] * (ABNORMAL) POCT glucose (01/11/2025 4:35 AM CDT) Glucose, POC 267(H) 70 - 199 mg/dL Comment: Interpretive Data Glucose is assumed to be non-fasting. Fasting Glucose reference ranges are: 0 - 150 years: 70 mg/dL - 99 mg/dL Current interpretive data was last revised on 2013. POC Device Number [id number] HERBER MARCANO Glucose comment 1 RN/ Notified HERBER MARCANO Blood 01/11/2025 4:35 AM CDT 01/11/2025 4:35 AM CDT Parag Xie MD LAB POCT ORDERABLES - DEV ICE Final Result Performing Organization Address [facility] de Phone Number HERBER JIMENEZWCH [phone] [facility] [employer] [place], [place] [id number] * (ABNORMAL) POCT glucose (01/10/2025 11:36 PM CDT) Glucose, POC 220(H) 70 - 199 mg/dL Comment: Interpretive Data Glucose is assumed to be non-fasting. Fasting Glucose reference ranges are: 0 - 150 years: 70 mg/dL - 99 mg/dL Current interpretive data was last revised on 2013. POC Device Number [id number] HERBER MARCANO Glucose comment 1 RN/ Notified HERBER MARCANO Blood 01/10/2025 11:3 6 PM CDT 01/10/2025 11:36 PM CDT Parag Xie MD LAB POCT ORDERABLES - DEV ICE Final Result Performing Organization Address [facility] de Phone Number HERBER JIMENEZWCH [address] [facility] [place] [address] * POCT glucose (01/10/2025 9:11 PM CDT) Glucose, POC 142 70 - 199 mg/dL Comment: Interpretive Data Glucose is assumed to be non-fasting. Fasting Glucose reference ranges are: 0 - 150 years: 70 mg/dL - 99 mg/dL Current interpretive data was last revised on 2013. POC Device Number [id number] 9 HERBER MARCANO Blood 01/10/2025 9:11 PM CDT 01/10/2025 9:11 PM CDT Parag Xie MD LAB POCT ORDERABLES - DEV ICE Final Result Performing Organization Address [facility] Co de Phone Number [facility] [address] [facility] [place] [address] * POCT glucose (01/10/2025 7:44 PM CDT) Glucose, POC 159 70 - 199 mg/dL Comment: Interpretive Data Glucose is assumed to be non-fasting. Fasting Glucose reference ranges are: 0 - 150 years: 70 mg/dL - 99 mg/dL Current interpretive data was last revised on 2013. POC Device Number [id number] 9 HERBER MARCANO Blood 01/10/2025 7:44 PM CDT 01/10/2025 7:44 PM CDT Parag Xie MD LAB POCT ORDERABLES - DEV ICE Final Result Performing Organization Address [facility] Phone Number HERBER JIMENEZCH [address] [facility] [place] [address] * (ABNORMAL) POCT glucose (01/10/2025 5:29 PM CDT) Glucose, POC 230(H) 70 - 199 mg/dL Comment: Interpretive Data Glucose is assumed to be non-fasting. Fasting Glucose reference ranges are: 0 - 150 years: 70 mg/dL - 99 mg/dL Current interpretive data was last revised on 2013. POC Device Number [id number] 9 HERBER MARCANO Blood 01/10/2025 5:29 PM CDT 01/10/2025 5:29 PM CDT Parag Xie MD LAB POCT ORDERABLES - DEV ICE Final Result Performing Organization Address [facility] Co de Phone Number [facility] [address] [facility]. [facility] [place] [address] * (ABNORMAL) POCT glucose (01/10/2025 1:56 PM CDT) Glucose, POC 233(H) 70 - 199 mg/dL Comment: Interpretive Data Glucose is assumed to be non-fasting. Fasting Glucose reference ranges are: 0 - 150 years: 70 mg/dL - 99 mg/dL Current interpretive data was last revised on 2013. POC Device Number [id number] 9 HERBER MARCANO Blood 01/10/2025 1:56 PM CDT 01/10/2025 1:56 PM CDT Parag Xie MD LAB POCT ORDERABLES - DEV ICE Final Result Performing Organization Address [facility] de Phone Number [facility] [address] [facility]. [facility] [place] [address] * (ABNORMAL) POCT glucose (01/10/2025 12:01 PM CDT) Glucose, POC 331(H) 70 - 199 mg/dL Comment: Interpretive Data Glucose is assumed to be non-fasting. Fasting Glucose reference ranges are: 0 - 150 years: 70 mg/dL - 99 mg/dL Current interpretive data was last revised on 2013. POC Device Number [id number] 4 HERBER MARCANO Blood 01/10/2025 12:0 1 PM CDT 01/10/2025 12:01 PM CDT Parag Xie MD LAB POCT ORDERABLES - DEV ICE Final Result Performing Organization Address [facility] de Phone Number [facility] [address] [facility]. [facility] [place] [address] * (ABNORMAL) POCT glucose (01/10/2025 10:22 AM CDT) Glucose, POC 335(H) 70 - 199 mg/dL Comment: Interpretive Data Glucose is assumed to be non-fasting. Fasting Glucose reference ranges are: 0 - 150 years: 70 mg/dL - 99 mg/dL Current interpretive data was last revised on 2013. POC Device Number [id number] HERBER MARCANO Glucose comment 1 RN/MD Notified HERBER MARCANO Blood 01/10/2025 10:2 2 AM CDT 01/10/2025 10:22 AM CDT Parag Xie MD LAB POCT ORDERABLES - DEV ICE Final Result Performing Organization Address [facility] de Phone Number [facility] [address] [facility] [employer] [place], [place] [id number] * POCT glucose (01/10/2025 7:57 AM CDT) Glucose, POC 185 70 - 199 mg/dL Comment: Interpretive Data Glucose is assumed to be non-fasting. Fasting Glucose reference ranges are: 0 - 150 years: 70 mg/dL - 99 mg/dL Current interpretive data was last revised on 2013. POC Device Number [id number] 4 HERBER MARCANO Blood 01/10/2025 7:57 AM CDT 01/10/2025 7:57 AM CDT Parag Xie MD LAB POCT ORDERABLES - DEV ICE Final Result Performing Organization Address [facility] de Phone Number [facility] [address] [facility] [place] [address] * POCT glucose (01/10/2025 4:07 AM CDT) Glucose, POC 114 70 - 199 mg/dL Comment: Interpretive Data Glucose is assumed to be non-fasting. Fasting Glucose reference ranges are: 0 - 150 years: 70 mg/dL - 99 mg/dL Current interpretive data was last revised on 2013. POC Device Number [id number] 4 HERBER MARCANO Blood 01/10/2025 4:07 AM CDT 01/10/2025 4:07 AM CDT Parag Xie MD LAB POCT ORDERABLES - DEV ICE Final Result Performing Organization Address [facility] Co de Phone Number HERBER REINACH [address] [address] [facility] [employer] [place], [place] [id number] * (ABNORMAL) eGFR (01/10/2025 4:02 AM CDT) eGFR 11(L) >=60 mL/min/1. 73 m2 [...] interpretive data was last reviewed 2021. Blood 01/10/2025 4:02 AM CDT 01/10/2025 4:20 AM CDT Parag Xie MD LAB BLOOD ORDERABLES Marli l Result Performing Organization Address City/[facility]/ZIP Co de Phone Number HERBER REINACH [phone] [facility] [employer] [place], [place] [id number] * (ABNORMAL) CBC without differential (01/10/2025 4:02 AM CDT) WBC 4.58 3.80 - 9.90 K/cumm Hgb 9.0(L) 11.9 - 15.5 g/dL [facility] Hct 28.2(L) 35.6 - 45.5 % [facility] Plt 274 150 - 400 K/cumm [facility] MPV 10.6 9.1 - 12.3 fL [facility] RBC 3.18(L) 3.90 - 5.20 M/cumm [facility] MCV 88.7 81.3 - 96.4 fL [facility] MCH 28.3 27.1 - 33.3 pg [facility] MCHC 31.9(L) 32.3 - 35.7 g/dL [facility] RDW CV 15.2(H) 11.1 - 14.9 % [facility] RDW SD 48.3(H) 35.7 - 48.1 fL [facility] NRBC abs 0.00 0.00 - 0.01 K/cumm [facility] Blood 01/10/2025 4:02 AM CDT 01/10/2025 4:20 AM CDT us Parag Xie MD LAB BLOOD ORDERABLES Marli lipscomb Result [facility] [address] [facility]. [place] [address] * (ABNORMAL) Basic metabolic panel (01/10/2025 4:02 AM CDT) [facility] Sodium 136 135 - 145 mmol/L Potassium, pl 3.5 3.3 - 4.9 mmol/L [facility] Chloride 98 97 - 110 mmol/L [facility] CO2 24 22 - 32 mmol/L [facility] Anion gap 14 2 - 15 mmol/L [facility] BUN 22 6 - 25 mg/dL [facility] Creatinine 5.00(H) 0.60 - 1.10 mg/dL [facility] Glucose 109 70 - 199 mg/dL [facility] Comment: Interpretive Data Fasting glucose >/= [...] 2022. Calcium 7.7(L) 8.5 - 10.3 mg/dL HERBER REINA Blood 01/10/2025 4:02 AM CDT 01/10/2025 4:20 AM CDT Parag Xie MD LAB BLOOD ORDERABLES Marli l Result Performing Organization Address [facility] Co de Phone Number [facility] [phone] [place] [address] * POCT glucose (01/09/2025 11:05 PM CDT) Glucose, POC 159 70 - 199 mg/dL Comment: Interpretive Data Glucose is assumed to be non-fasting. Fasting Glucose reference ranges are: 0 - 150 years: 70 mg/dL - 99 mg/dL Current interpretive data was last revised on 2013. POC Device Number [id number] HERBER REINA Blood 01/09/2025 11:0 5 PM CDT 01/09/2025 11:05 PM CDT Parag Xie MD LAB POCT ORDERABLES - DEV ICE Final Result Performing Organization Address [facility] Co de Phone Number [facility] [phone] [facility] [place] [address] * (ABNORMAL) POCT glucose (01/09/2025 10:22 PM CDT) Glucose, POC 60(L) 70 - 199 mg/dL Comment: Interpretive Data Glucose is assumed to be non-fasting. Fasting Glucose reference ranges are: 0 - 150 years: 70 mg/dL - 99 mg/dL Current interpretive data was last revised on 2013. POC Device Number [id number] HERBER MARCANO Blood 01/09/2025 10:2 2 PM CDT 01/09/2025 10:22 PM CDT Parag Xie MD LAB POCT ORDERABLES - DEV ICE Final Result Performing Organization Address [facility] Phone Number [facility] [phone] [facility] [place] [address] * POCT glucose (01/09/2025 8:46 PM CDT) Glucose, POC 80 70 - 199 mg/dL Comment: Interpretive Data Glucose is assumed to be non-fasting. Fasting Glucose reference ranges are: 0 - 150 years: 70 mg/dL - 99 mg/dL Current interpretive data was last revised on 2013. POC Device Number [id number] HERBER MARCANO Blood 01/09/2025 8:46 PM CDT 01/09/2025 8:46 PM CDT Parag Xie MD LAB POCT ORDERABLES - DEV ICE Final Result Performing Organization Address [facility] Phone Number [facility] [phone] [facility] [place] [address] * POCT glucose (01/09/2025 6:06 PM CDT) Glucose, POC 193 70 - 199 mg/dL Comment: Interpretive Data Glucose is assumed to be non-fasting. Fasting Glucose reference ranges are: 0 - 150 years: 70 mg/dL - 99 mg/dL Current interpretive data was last revised on 2013. POC Device Number [id number] CERNER BARBARAWCH Blood 01/09/2025 6:06 PM CDT 01/09/2025 6:06 PM CDT Parag Xie MD LAB POCT ORDERABLES - DEV ICE Final Result Performing Organization Address [facility] de Phone Number HERBER JIMENEZCH [phone] [facility]. [facility] [place] [address] * (ABNORMAL) POCT glucose (01/09/2025 5:41 PM CDT) Glucose, POC 64(L) 70 - 199 mg/dL Comment: Interpretive Data Glucose is assumed to be non-fasting. Fasting Glucose reference ranges are: 0 - 150 years: 70 mg/dL - 99 mg/dL Current interpretive data was last revised on 2013. POC Device Number [id number] HERBER MARCANO Blood 01/09/2025 5:41 PM CDT 01/09/2025 5:41 PM CDT Parag Xie MD LAB POCT ORDERABLES - DEV ICE Final Result Performing Organization Address [facility] de Phone Number HERBER [facility] [phone] [facility]. [facility] [place] [address] * POCT glucose (01/09/2025 5:05 PM CDT) Glucose, POC 100 70 - 199 mg/dL Comment: Interpretive Data Glucose is assumed to be non-fasting. Fasting Glucose reference ranges are: 0 - 150 years: 70 mg/dL - 99 mg/dL Current interpretive data was last revised on 2013. POC Device Number [id number] 4 HERBER REINA Blood 01/09/2025 5:05 PM CDT 01/09/2025 5:05 PM CDT Parag Xie MD LAB POCT ORDERABLES - DEV ICE Final Result Performing Organization Address [facility] Co de Phone Number HERBER [facility] [phone] [facility]. [facility] [place] [address] * (ABNORMAL) POCT glucose (01/09/2025 2:05 PM CDT) Glucose, POC 228(H) 70 - 199 mg/dL Comment: Interpretive Data Glucose is assumed to be non-fasting. Fasting Glucose reference ranges are: 0 - 150 years: 70 mg/dL - 99 mg/dL Current interpretive data was last revised on 2013. POC Device Number [id number] CERNER BARBARAW Blood 01/09/2025 2:05 PM CDT 01/09/2025 2:05 PM CDT us Parag Xie MD LAB POCT ORDERABLES - DEV ICE Final Result Performing Organization Address City/[facility]/ZIP Co de Phone Number [facility] [phone] [address] [employer] [place], [place] [id number] * Hepatitis B Surface Antigen Blood (01/09/2025 1:16 PM CDT) [facility] HepBsAg Nonreactive Nonreactive Comment:Testing performed by : [facility], [facility] [facility], [place]., [address] Blood 01/09/2025 1:16 PM CDT 01/09/2025 2:13 PM CDT us Russell Weller MD LAB MICROBIOLOGY - GENER AL ORDERABLES Final Result Performing Organization Address City/[facility]/ZIP Co de Phone Number [facility] [phone] [address] [employer] [place], [place] [id number] * (ABNORMAL) POCT glucose (01/09/2025 12:44 PM CDT) Glucose, POC 298(H) 70 - 199 mg/dL Comment: Interpretive Data Glucose is assumed to be non-fasting. Fasting Glucose reference ranges are: 0 - 150 years: 70 mg/dL - 99 mg/dL Current interpretive data was last revised on 2013. POC Device Number [id number] 4 CERNER BJWCH Blood 01/09/2025 12:4 4 PM CDT 01/09/2025 12:44 PM CDT Parag Xie MD LAB POCT ORDERABLES - DEV ICE Final Result Performing Organization Address [facility] de Phone Number HERBER REINA [phone] [facility] [place] [address] * (ABNORMAL) POCT glucose (01/09/2025 12:00 PM CDT) Glucose, POC 342(H) 70 - 199 mg/dL Comment: Interpretive Data Glucose is assumed to be non-fasting. Fasting Glucose reference ranges are: 0 - 150 years: 70 mg/dL - 99 mg/dL Current interpretive data was last revised on 2013. POC Device Number [id number] HERBER JIMENEZWCH Blood 01/09/2025 12:0 0 PM CDT 01/09/2025 12:00 PM CDT Parag Xie MD LAB POCT ORDERABLES - DEV ICE Final Result Performing Organization Address [facility] de Phone Number HERBER JIMENEZCH [phone] [facility]. [facility] [place] [address] * (ABNORMAL) POCT glucose (01/09/2025 10:55 AM CDT) Glucose, POC 358(H) 70 - 199 mg/dL Comment: Interpretive Data Glucose is assumed to be non-fasting. Fasting Glucose reference ranges are: 0 - 150 years: 70 mg/dL - 99 mg/dL Current interpretive data was last revised on 2013. POC Device Number [id number] 4 HERBER JIMENEZWCH Blood 01/09/2025 10:5 5 AM CDT 01/09/2025 10:55 AM CDT Parag Xie MD LAB POCT ORDERABLES - DEV ICE Final Result Performing Organization Address [facility] de Phone Number HERBER JIMENEZCH [phone] [facility]. [place] [address] * IR Gastrojejunostomy Tube Placement (01/09/2025 10:32 AM CDT) Anatomical Region Laterality Modality Body N/A X-Ray Angiograph y 01/09/2025 4:17 PM CDT Impressions 01/09/2025 4:17 PM CDT Successful placement of a 18 Trinidadian Arlene single lumen gastrojejunostomy catheter. PLAN: The catheter is ready for feeding immediately through the jejunal port. Please flush the catheter with 20 cc of water after every feed and once each shift. Never attempt to administer crushed pills through the jejunal lumen. Electronically signed by: Jamie Bell M.D. Narrative 01/09/2025 4:17 PM CDT EXAMINATION: SINGLE LUMEN PERCUTANEOUS GASTROJEJUNOSTOMY TUBE PLACEMENT HISTORY/INDICATION: 29 year old with gastroparesis who needs jejunal access ATTENDING PRESENCE: Jamie Bell M.D., the attending radiologist was present from the beginning to the end of the procedure. SEDATION: The procedure was performed under general anesthesia TECHNIQUE: The risks, benefits and alternatives were discussed and informed consent was obtained. Prior to beginning the procedure, [place] Protocol was performed to confirm the patient's identity and the planned procedure. For procedures that utilize fluoroscopy, the fluoroscopy time has been recorded in the electronic medical record. Maximum sterile barriers including cap, mask, hand hygiene, sterile gloves, sterile gown, large sterile drape and 2% chlorhexidine for cutaneous antisepsis were used. The skin over the stomach was sterilely prepped, draped and infiltrated with 1% lidocaine and 1 mg of intravenous glucagon was administered. A nasogastric tube was advanced into the stomach under fluoroscopic control and was used to inject air to distend the stomach and fluoroscopy was used to determine a safe tract to the stomach. The stomach was then accessed under fluoroscopic guidance and 2 T-tacs deployed and sutured to the skin. The stomach was then accessed with a 18 gauge needle and a guidewire passed into the stomach. Using fluoroscopic guidance an angiographic catheter was then advanced over the guidewire and manipulated through the pylorus into the proximal jejunum. Over the guidewire the tract was then dilated and a peel away sheath placed into the stomach. A 18fr 45 cm Arlene dual lumen gastrojejunostomy catheter was then advanced into the proximal jejunum under fluoroscopic guidance. The gastric balloon of the Arlene catheter was filled with saline and the catheter was secured to the skin. The dermatotomy was closed with 4-0 Monocryl. ESTIMATED BLOOD LOSS: Minimal. CONDITION: Stable DISCHARGED TO:patient care division FINDINGS: Final fluoroscopic image demonstrates the gastrojejunostomy catheter with its tip in the proximal jejunum. Procedure Note Jamie Bell MD - 01/09/2025 EXAMINATION: SINGLE LUMEN PERCUTANEOUS GASTROJEJUNOSTOMY TUBE PLACEMENT HISTORY/INDICATION: 29 year old with gastroparesis who needs jejunal access ATTENDING PRESENCE: Jamie Bell M.D., the attending radiologist was present from the beginning to the end of the procedure. SEDATION: The procedure was performed under general anesthesia TECHNIQUE: The risks, benefits and alternatives were discussed and informed consent was obtained. Prior to beginning the procedure, [place] Protocol was performed to confirm the patient's identity and the planned procedure. For procedures that utilize fluoroscopy, the fluoroscopy time has been recorded in the electronic medical record. Maximum sterile barriers including cap, mask, hand hygiene, sterile gloves, sterile gown, large sterile drape and 2% chlorhexidine for cutaneous antisepsis were used. The skin over the stomach was sterilely prepped, draped and infiltrated with 1% lidocaine and 1 mg of intravenous glucagon was administered. A nasogastric tube was advanced into the stomach under fluoroscopic control and was used to inject air to distend the stomach and fluoroscopy was used to determine a safe tract to the stomach. The stomach was then accessed under fluoroscopic guidance and 2 T-tacs deployed and sutured to the skin. The stomach was then accessed with a 18 gauge needle and a guidewire passed into the stomach. Using fluoroscopic guidance an angiographic catheter was then advanced over the guidewire and manipulated through the pylorus into the proximal jejunum. Over the guidewire the tract was then dilated and a peel away sheath placed into the stomach. A 18fr 45 cm Arlene dual lumen gastrojejunostomy catheter was then advanced into the proximal jejunum under fluoroscopic guidance. The gastric balloon of the Arlene catheter was filled with saline and the catheter was secured to the skin. The dermatotomy was closed with 4-0 Monocryl. ESTIMATED BLOOD LOSS: Minimal. CONDITION: Stable DISCHARGED TO:patient care division FINDINGS: Final fluoroscopic image demonstrates the gastrojejunostomy catheter with its tip in the proximal jejunum. IMPRESSION: Successful placement of a 18 Trinid[place] Arlene single lumen gastrojejunostomy catheter. PLAN: The catheter is ready for feeding immediately through the jejunal port. Please flush the catheter with 20 cc of water after every feed and once each shift. Never attempt to administer crushed pills through the jejunal lumen. Electronically signed by: Jamie Bell M.D. Yessenia Dominguez MD IMG IR PROCEDURES Final Res ult * [place] AN ELECTIVE ENDOTRACHEAL AIRWAY, [place] AN PROCEDURE PLACEHOLDER (01/09/2025 9:43 AM CDT) Narrative Emily Sousa CRNA - 01/09/2025 9:43 AM CDT Emily Sousa CRNA 01/09/2025 9:44 AM Airway Patient location: OR Urgency: elective Date/time: 01/09/2025 9:43 AM Indications for airway management: anesthesia Difficult airway: no Emergent airway documentation: Risks and benefits discussed: yes Consent obtained: yes Consent given by: patient Airway prep: Preoxygenated: yes Patient position: sniffing Mask difficulty assessment: 0 - not attempted Spontaneous ventilation during airway: absent Sedation level during airway: GA Final airway details: Final airway type: endotracheal airway Tube type: ETT ETT size: 6.0 mm Cuffed: yes Technique used for successful ETT placement: video laryngoscopy Devices/Methods used in placement: intubating stylet Blade type: Mari Video blade type: Carbone Blade size: 3 Cormack-Lehane (video): grade I - full view of glottis Cuff volume: 7 mL Cuff inflated with: air ETT to teeth: 22 cm Placement verified by: auscultation Airway secured with: silk tape Number of attempts: 1 Additional comments: Lips,teeth, braces,and tongue remain unchanged from preop assessment. Jeferson Pascal MD ANESTHESIA ORDERABLES F inal Result * POCT glucose (01/09/2025 9:02 AM CDT) [facility] Signature Glucose, POC 120 70 - 199 mg/dL Comment: Interpretive Data Glucose is assumed to be non-fasting. Fasting Glucose reference ranges are: 0 - 150 years: 70 mg/dL - 99 mg/dL Current interpretive data was last revised on 2013. POC Device Number [id number] HERBER MARCANO Blood 01/09/2025 9:02 AM CDT 01/09/2025 9:02 AM CDT Parag Xie MD LAB POCT ORDERABLES - DEV ICE Final Result Performing Organization Address [facility] Co de Phone Number [facility] [phone] [address] [facility] [place] [address] * POCT hCG, urine (01/09/2025 8:59 AM CDT) HCG, ur, POC Negative Negative Lot Number [id number] QC Backgroud Clear Acceptable QC Control Line Acceptable Urine 01/09/2025 8:59 AM CDT Jamie Bell MD POINT OF CARE TEST ORDERAB LES Final Result * POCT glucose (01/09/2025 7:09 AM CDT) Glucose, POC 92 70 - 199 mg/dL Comment: Interpretive Data Glucose is assumed to be non-fasting. Fasting Glucose reference ranges are: 0 - 150 years: 70 mg/dL - 99 mg/dL Current interpretive data was last revised on 2013. POC Device Number [id number] HERBER MARCANO Blood 01/09/2025 7:09 AM CDT 01/09/2025 7:09 AM CDT Parag Xie MD LAB POCT ORDERABLES - DEV ICE Final Result Performing Organization Address City/[facility]/ZIP Co de Phone Number [facility] [phone] [address] [facility] [employer] [place], [place] [phone] * POCT glucose (01/09/2025 4:11 AM CDT) Pathologist [facility] Glucose, POC 130 70 - 199 mg/dL Comment: Interpretive Data Glucose is assumed to be non-fasting. Fasting Glucose reference ranges are: 0 - 150 years: 70 mg/dL - 99 mg/dL Current interpretive data was last revised on 2013. POC Device Number [id number] [facility] Blood 01/09/2025 4:11 AM CDT 01/09/2025 4:11 AM CDT Yessenia Dominguez MD LAB POCT ORDERABLES - DEVIC E Final Result Performing Organization Address [facility]/ZIP Co de Phone Number [facility] [phone] [address] [employer] [place], [place] [phone] * Beta-hydroxybutyrate (01/09/2025 12:50 AM CDT) [facility] Beta-Hydroxybut yrate <0.5 0.0 - 0.5 mmol/L Blood 01/09/2025 12:5 0 AM CDT 01/09/2025 12:57 AM CDT Yessenia Dominguez MD LAB BLOOD ORDERABLES Edited Result - Final Performing Organization Address [facility] Co de Phone Number [facility] [phone] [facility] [place] [address] * (ABNORMAL) eGFR (01/09/2025 12:49 AM CDT) Pathologist [facility] eGFR 5(L) >=60 mL/min/1. 73 m2 Comment: Interpretive Data [...] interpretive data was last reviewed 2021. Blood 01/09/2025 12:4 9 AM CDT 01/09/2025 12:57 AM CDT Yessenia Dominguez MD LAB BLOOD ORDERABLES Final Result Performing Organization Address [facility] Co de Phone Number HERBER REINA [phone] [address] [employer] [place], [place] [id number] * Blood gas, venous (01/09/2025 12:49 AM CDT) pH, Venous 7.34 7.32 - 7.43 PCO2, Venous 42 40 - [address] [facility] PO2, Venous 60 mmHg C[facility]ER [facility] Comment: Interpretive Data No reference range established. Current interpretive data was last revised 2019. HCO3 Venous, Calculated 23 20 - 30 mmol/L [facility] BE, venous -3 mmol/L CERNER [facility] Comment: Interpretive Data No Reference Range Established Current Interpretive Data was last revised on 2017. Blood 01/09/2025 12:4 9 AM CDT 01/09/2025 12:57 AM CDT Yessenia Dominguez MD LAB BLOOD ORDERABLES Final Result Performing Organization Address [facility] Co de Phone Number [facility] [phone] [facility] [employer] [place], [place] [phone] * (ABNORMAL) Basic metabolic panel (01/09/2025 12:49 AM CDT) Sodium 138 135 - 145 mmol/L Potassium, pl 4.4 3.3 - 4.9 mmol/L [facility] Chloride 101 97 - 110 mmol/L [facility] CO2 22 22 - 32 mmol/L [facility] Anion gap 15 2 - 15 mmol/L [facility] BUN 55(H) 6 - 25 mg/dL [facility] Creatinine 9.20(H) 0.60 - 1.10 mg/dL [facility] Glucose 292(H) 70 - 199 mg/dL [facility] Comment: Interpretive Data Fasting glucose >/= [...] interpretive data was last revised 2022. Calcium 7.2(L) 8.5 - 10.3 mg/dL [facility] Blood 01/09/2025 12:4 9 AM CDT 01/09/2025 12:57 AM CDT Yessenia Dominguez MD LAB BLOOD ORDERABLES Final Result Performing Organization Address City/State/[facility] Phone Number [facility] [phone] [facility] [place] [address] * (ABNORMAL) POCT glucose (01/09/2025 12:16 AM CDT) [facility] Glucose, POC 322(H) 70 - 199 mg/dL Comment: Interpretive Data Glucose is assumed to be non-fasting. Fasting Glucose reference ranges are: 0 - 150 years: 70 mg/dL - 99 mg/dL Current interpretive data was last revised on 2013. POC Device Number [id number] CERNER [facility] Blood 01/09/2025 12:1 6 AM CDT 01/09/2025 12:16 AM CDT Yessenia Dominguez MD LAB POCT ORDERABLES - DEVIC E Final Result Performing Organization Address [facility] de Phone Number HER[facility] [address] [facility] [place] [address] * (ABNORMAL) POCT glucose (01/08/2025 10:21 PM CDT) [facility] Glucose, POC 399(H) 70 - 199 mg/dL Comment: Interpretive Data Glucose is assumed to be non-fasting. Fasting Glucose reference ranges are: 0 - 150 years: 70 mg/dL - 99 mg/dL Current interpretive data was last revised on 2013. POC Device Number [id number] 9 HERBER [facility] Blood 01/08/2025 10:2 1 PM CDT 01/08/2025 10:21 PM CDT Yessenia Dominguez MD LAB POCT ORDERABLES - DEVIC E Final Result Performing Organization Address [facility] Phone Number [facility] [address] [facility] [place] [address] * XR Chest 1 View (01/08/2025 9:59 PM CDT) Anatomical Region Laterality Modality Body, Chest N/A Computed Radiogr aphy 01/09/2025 8:09 AM CDT Impressions 01/09/2025 8:25 AM CDT Comparison 10/29/2024. Left chest port catheter tip overlies the superior vena cava. Right internal jugular central venous catheter tip overlies the right atrium. Small lung volumes. No consolidation, pleural effusion, or pneumothorax. Normal heart size and mediastinal contours. Dictated by: Jemal Ha MD PHD The radiology attending physician has personally reviewed this study, and had reviewed and/or edited this written report and agrees with it. Electronically signed by: Femi Tuttle M.D. Narrative 01/09/2025 8:25 AM CDT EXAMINATION: 1 view chest radiograph Procedure Note Femi Tuttle MD - 01/09/2025 EXAMINATION: 1 view chest radiograph IMPRESSION: Comparison 10/29/2024. Left chest port catheter tip overlies the superior vena cava. Right internal jugular central venous catheter tip overlies the right atrium. Small lung volumes. No consolidation, pleural effusion, or pneumothorax. Normal heart size and mediastinal contours. Dictated by: Jemal Ha MD PHD The radiology attending physician has personally reviewed this study, and had reviewed and/or edited this written report and agrees with it. Electronically signed by: Femi Tuttle M.D. us Yessenia Dominguez MD IMG XR PROCEDURES Final Res ult * (ABNORMAL) eGFR (01/08/2025 8:57 PM CDT) eGFR 6(L) >=60 mL/min/1. 73 m2 Comment: Interpretive Data [...] interpretive data was last reviewed 2021. Blood 01/08/2025 8:57 PM CDT 01/08/2025 9:02 PM CDT us Yareli Mitchell MD LAB BLOOD ORDERABLES F inal Result [facility] [address] [facility]. [place] [address] * Differential, auto (01/08/2025 8:57 PM CDT) Neutrophil abs 3.57 1.50 - 6.50 K/cumm Imm gran abs 0.02 0.00 - 0.10 K/cumm [facility] Lymphocyte abs 1.68 0.80 - 3.30 K/cumm [facility] Monocyte abs 0.66 0.20 - 0.80 K/cumm [facility] Eosinophil abs 0.22 0.00 - 0.50 K/cumm [facility] Basophil abs 0.01 0.00 - 0.10 K/cumm [facility] Neutrophil pct 57.9 % [facility] Comment: Interpretive Data Percent cell count reference ranges are not reported, since discordance with absolute values may lead to misinterpretation of CBC data. Current Interpretive Data was last revised on 2017. Imm gran pct 0.3 % [facility] Comment: Interpretive Data Percent cell count reference ranges are not reported, since discordance with absolute values may lead to misinterpretation of CBC data. Current Interpretive Data was last revised on 2017. Lymphocyte pct 27.3 % [facility] Comment: Interpretive Data Percent cell count reference ranges are not reported, since discordance with absolute values may lead to misinterpretation of CBC data. Current Interpretive Data was last revised on 2017. Monocyte pct 10.7 % [facility] Comment: Interpretive Data Percent cell count reference ranges are not reported, since discordance with absolute values may lead to misinterpretation of CBC data. Current Interpretive Data was last revised on 2017. Eosinophil pct 3.6 % [facility] Comment: Interpretive Data Percent cell count reference ranges are not reported, since discordance with absolute values may lead to misinterpretation of CBC data. Current Interpretive Data was last revised on 2017. Basophil pct 0.2 % [facility] Comment: Interpretive Data Percent cell count reference ranges are not reported, since discordance with absolute values may lead to misinterpretation of CBC data. Current Interpretive Data was last revised on 2017. Blood 01/08/2025 8:57 PM CDT 01/08/2025 9:02 PM CDT Yareli Mitchell MD LAB BLOOD ORDERABLES F inal Result Performing Organization Address [facility] Co de Phone Number [facility] [address] [facility] [employer] [place], [place] [phone] * Beta-hydroxybutyrate (01/08/2025 8:57 PM CDT) [facility] Beta-Hydroxybut yrate <0.5 0.0 - 0.5 mmol/L Blood 01/08/2025 8:57 PM CDT 01/08/2025 9:02 PM CDT Yessenia Dominguez MD LAB BLOOD ORDERABLES Final Result Performing Organization Address [facility] de Phone Number [facility] [address] [facility] [place] [address] * (ABNORMAL) CBC with auto differential (01/08/2025 8:57 PM CDT) [facility] WBC 6.16 3.80 - 9.90 K/cumm Hgb 9.2(L) 11.9 - 15.5 g/dL [facility] Hct 29.0(L) 35.6 - 45.5 % [facility] Plt 320 150 - 400 K/cumm [facility] MPV 10.6 9.1 - 12.3 fL [facility] RBC 3.25(L) 3.90 - 5.20 M/cumm [facility] MCV 89.2 81.3 - 96.4 fL [facility] MCH 28.3 27.1 - 33.3 pg [facility] MCHC 31.7(L) 32.3 - 35.7 g/dL [facility] RDW CV 14.9 11.1 - 14.9 % [facility] RDW SD 48.1 35.7 - 48.1 fL [facility] NRBC abs 0.00 0.00 - 0.01 K/cumm [facility] Blood 01/08/2025 8:57 PM CDT 01/08/2025 9:02 PM CDT Yareli Mitchell MD LAB BLOOD ORDERABLES F inal Result Performing Organization Address [facility]/ZIP Co de Phone Number [facility] [address] [facility] [place] [address] * Protime-INR (01/08/2025 8:57 PM CDT) PT 11.7 10.2 - 13.5 sec INR 1.04 0.90 - 1.20 [facility] Comment: Interpretive data Oral anticoagulant therapeutic ranges: Venous thromboembolism prophylaxis or treatment: 2.0-3.0 CARDIOLOGY Standard range: 2.0-3.0 High-intensity range: 2.5-3.5 Refer to indication-specific guidelines for appropriate target ranges for prosthetic heart valve replacement. Current interpretive data was last revised on 2019. Blood 01/08/2025 8:57 PM CDT 01/08/2025 9:02 PM CDT Yareli Mitchell MD LAB BLOOD ORDERABLES F inal Result Performing Organization Address [facility] Co de Phone Number [facility] [address] [facility] [place] [address] * (ABNORMAL) Renal function panel (01/08/2025 8:57 PM CDT) Sodium 136 135 - 145 mmol/L Potassium, pl 5.1(H) 3.3 - 4.9 mmol/L [facility] Chloride 99 97 - 110 mmol/L [facility] CO2 19(L) 22 - 32 mmol/L [facility] Anion gap 19(H) 2 - 15 mmol/L [facility] BUN 50(H) 6 - 25 mg/dL [facility] Creatinine 8.90(H) 0.60 - 1.10 mg/dL [facility] Glucose 420(H) 70 - 199 mg/dL [facility] Comment: Interpretive Data Fasting glucose >/= [...] 2022. Calcium 7.7(L) 8.5 - 10.3 mg/dL [facility] Phosphorus, pl 6.6(H) 2.3 - 4.5 mg/dL [facility] Albumin 4.0 3.5 - 5.0 g/dL [facility] Blood 01/08/2025 8:57 PM CDT 01/08/2025 9:02 PM CDT Yareli Mitchell MD LAB BLOOD ORDERABLES F inal Result [facility] [address] [facility] Department [place] [address] * (ABNORMAL) POCT glucose (01/08/2025 7:44 PM CDT) [facility] Glucose, POC 320(H) 70 - 199 mg/dL Comment: Interpretive Data Glucose is assumed to be non-fasting. Fasting Glucose reference ranges are: 0 - 150 years: 70 mg/dL - 99 mg/dL Current interpretive data was last revised on 2013. POC Device Number [id number] Blood 01/08/2025 7:44 PM CDT 01/08/2025 7:44 PM CDT Yessenia Dominguez MD LAB POCT ORDERABLES - DEVIC E Final Result Performing Organization Address [facility] de Phone Number [facility] [address] [facility] [place] [address] * (ABNORMAL) POCT glucose (01/08/2025 6:43 PM CDT) Glucose, POC 320(H) 70 - 199 mg/dL Comment: Interpretive Data Glucose is assumed to be non-fasting. Fasting Glucose reference ranges are: 0 - 150 years: 70 mg/dL - 99 mg/dL Current interpretive data was last revised on 2013. POC Device Number [id number] [facility] Blood 01/08/2025 6:43 PM CDT 01/08/2025 6:43 PM CDT Viraj Olivo MD LAB POCT ORDERABLES - DEVICE Fin al Result Performing Organization Address [facility] de Phone Number [facility] [address] [facility] [place] [address] * XR Foot Right 3 or More Views (01/08/2025 10:22 AM CDT) Anatomical Region Laterality Modality Lower Extremities, Foot Right Computed Radiography 01/09/2025 4:24 PM CDT Narrative 01/09/2025 4:28 PM CDT EXAM DESCRIPTION: 1. XR ANKLE RIGHT 3 OR MORE VIEWS; 2. XR FOOT RIGHT 3 OR MORE VIEWS REASON FOR STUDY: Right ankle and foot pain. Scheduled for total reconstruction rt foot/ankle per patient, general pain x 2 yrs, NRI FINDINGS: Three views right ankle and three views right foot submitted with comparison 12/07/2024. No acute fracture. Old healed distal tibia and fibular fractures are present with hindfoot valgus. Moderate to severe secondary right ankle osteoarthritis. Small effusion. Sggt-lr-ybmowubm pes planus with old healed midfoot fractures, polyarticular midfoot osteoarthritis and fragmentation. Soft tissue swelling is present. Arterial atherosclerosis is noted. Mild 1st metatarsophalangeal joint osteoarthritis. IMPRESSION: 1. Old healed distal right tibia and fibular fractures with hindfoot valgus and moderate to severe secondary right ankle osteoarthritis. 2. Qlnh-pd-aqbqupnw right pes planus with old healed midfoot fractures, polyarticular midfoot osteoarthritis and fragmentation. THIS IS AN ELECTRONICALLY VERIFIED FINAL REPORT 01/09/2025 4:28 PM - Electronically signed by Andrei Nguyen M.D. T: Report ID: [id number] Reading Location: [id number] Procedure Note Andrei Nguyen MD - 01/09/2025 EXAM DESCRIPTION: 1. XR ANKLE RIGHT 3 OR MORE VIEWS; 2. XR FOOT RIGHT 3 OR MORE VIEWS REASON FOR STUDY: Right ankle and foot pain. Scheduled for total reconstruction rt foot/ankle per patient, general painx 2 yrs, NRI FINDINGS: Three views right ankle and three views right foot submittedwith comparison 12/07/2024. No acute fracture. Old healed distal tibia and fibular fractures arepresent with hindfoot valgus. Moderate to severe secondary right ankle osteoarthritis. Small effusion. Hdxw-ws-vtacetix pes planus with oldhealed midfoot fractures, polyarticular midfoot osteoarthritis and fragmentation. Soft tissue swelling is present. Arterial atherosclerosis is noted. [id number] metatarsophalangeal joint osteoarthritis. IMPRESSION: 1. Old healed distal right tibia and fibular fractures with hindfootvalgus and moderate to severe secondary right ankle osteoarthritis. 2. Zgru-mq-zjfbvsky right pes planus with old healed midfoot fractures, polyarticular midfoot osteoarthritis and fragmentation. THIS IS AN ELECTRONICALLY VERIFIED FINAL REPORT 01/09/2025 4:28 PM - Electronically signed by Andrei Nguyen M.D. T: Report ID: [id number] Reading Location: [id number] us Raul Clark DO IMG XR PROCEDURES Final Result * XR Ankle Right 3 or More Views (01/08/2025 10:22 AM CDT) Anatomical Region Laterality Modality Lower Extremities, Ankle Right Compute d Radiography 01/09/2025 4:24 PM CDT Narrative 01/09/2025 4:28 PM CDT EXAM DESCRIPTION: 1. XR ANKLE RIGHT 3 OR MORE VIEWS; 2. XR FOOT RIGHT 3 OR MORE VIEWS REASON FOR STUDY: Right ankle and foot pain. Scheduled for total reconstruction rt foot/ankle per patient, general pain x 2 yrs, NRI FINDINGS: Three views right ankle and three views right foot submitted with comparison 12/07/2024. No acute fracture. Old healed distal tibia and fibular fractures are present with hindfoot valgus. Moderate to severe secondary right ankle osteoarthritis. Small effusion. Dwkh-rn-mfryuyvz pes planus with old healed midfoot fractures, polyarticular midfoot osteoarthritis and fragmentation. Soft tissue swelling is present. Arterial atherosclerosis is noted. Mild 1st metatarsophalangeal joint osteoarthritis. IMPRESSION: 1. Old healed distal right tibia and fibular fractures with hindfoot valgus and moderate to severe secondary right ankle osteoarthritis. 2. Ddjw-zf-fkoczoot right pes planus with old healed midfoot fractures, polyarticular midfoot osteoarthritis and fragmentation. THIS IS AN ELECTRONICALLY VERIFIED FINAL REPORT 01/09/2025 4:28 PM - Electronically signed by Andrei Nguyen M.D. T: Report ID: [id number] Reading Location: [id number] Procedure Note Andrei Nguyen MD - 01/09/2025 EXAM DESCRIPTION: 1. XR ANKLE RIGHT 3 OR MORE VIEWS; 2. XR FOOT RIGHT 3 OR MORE VIEWS REASON FOR STUDY: Right ankle and foot pain. Scheduled for total reconstruction rt foot/ankle per patient, general painx 2 yrs, NRI FINDINGS: Three views right ankle and three views right foot submittedwith comparison 12/07/2024. No acute fracture. Old healed distal tibia and fibular fractures arepresent with hindfoot valgus. Moderate to severe secondary right ankle osteoarthritis. Small effusion. Ngyj-pi-guerxbim pes planus with oldhealed midfoot fractures, polyarticular midfoot osteoarthritis and fragmentation. Soft tissue swelling is present. Arterial atherosclerosis is noted. Qmww9fz metatarsophalangeal joint osteoarthritis. IMPRESSION: 1. Old healed distal right tibia and fibular fractures with hindfootvalgus and moderate to severe secondary right ankle osteoarthritis. 2. Kejw-zr-wbgqhqur right pes planus with old healed midfoot fractures, polyarticular midfoot osteoarthritis and fragmentation. THIS IS AN ELECTRONICALLY VERIFIED FINAL REPORT 01/09/2025 4:28 PM - Electronically signed by Andrei Nguyen M.D. T: Report ID: [id number] Reading Location: [id number] us Raul Floresaceyani DO IMG XR PROCEDURES Final Result * POCT glucose (12/26/2024 9:47 AM CDT) Glucose, POC 197 70 - 199 mg/dL Blood 12/26/2024 9:47 AM CDT 12/26/2024 9:47 AM CDT us Young Vasquez MD LAB POCT ORDERABLES - DEVICE Final Result [facility] Department [place] [address] * Colonoscopy (12/26/2024 9:16 AM CDT) Anatomical Region Laterality Modality Other Narrative Procedure Note Young Vasquez MD - 12/26/2024 9:16 AM CDT [facility]OS[facility] Patient Name: Brissa Angela Procedure Date: 12/26/2024 9:16 AM Date of : 1995 Admit Type: Outpatient Age: 29 Gender: Female Attending MD: Young Vasquez M.D., Room: [facility] ENDOSCOPY ROOM 8 Note Status: Finalized [...] was passed under direct vision.The PCF [id number] endoscope was introduced through the anus and [...] MD ENDOSCOPY PROCEDURES F inal Result * [place] AN ELECTIVE ENDOTRACHEAL AIRWAY, [place] AN PROCEDURE PLACEHOLDER (12/26/2024 9:02 AM CDT) Narrative Federico Beltran CRNA - 12/26/2024 9:02 AM CDT Federico Beltran CRNA 12/26/2024 9:03 AM Airway Patient location: OR Urgency: elective Indications for airway management: anesthesia Difficult airway: no Staff: Supervising provider: Dylan Frias MD Placed by: MANAGER PLAN: Federico Beltran CRNA Emergent airway documentation: Risks [...] with: silk tape Number of attempts: 1 Dylan Frias MD ANESTHESIA ORDERABLES Final Resu lt * Surgical pathology (12/26/2024 9:00 AM CDT) Tissue (Gastric/Stomach biopsy) 12/26/2024 9:00 AM CDT Tissue specimen (specimen) (Gastric/Stomach biopsy) 12/26/2024 9:01 AM CDT Tissue specimen (specimen) (Colon, Biopsy) 12/26/2024 9:23 AM CDT Tissue specimen (specimen) (Colon, Biopsy) 12/26/2024 9:24 AM CDT Tissue specimen (specimen) (Colon, Biopsy) 12/26/2024 9:25 AM CDT Narrative PATHOLOGY [facility] - 12/27/2024 6:13 PM CDT EPIC results best viewed via link to PDF [facility] Gud[facility] [place] [address] Note to Patients: This report may contain [...] Gender: F : 1995 (Age: 29) Address: [address] [place], [place] [id number] Hospital #: [id number] Taken:12/26/2024 Received:12/26/2024 Reported: 12/27/2024 Patient Type: [facility] Service: Gastro Location: Physician(s): Caesar Ruff M.D. [...] in greatest dimension. Labeled E1. Jar 0. els/12/26/2024 11:42 PA(s): Samia Gtz By this signature, I attest that the above diagnosis is based upon my personal examination of the slides(and/or other material). Addenda/Procedures The performance characteristics of some immunohistochemical stains, fluorescence in-situ hybridization tests and immunophenotyping by flow cytometry cited in this report (if any) were determined by the Surgical Pathology and Flow Cytometry Departments at [facility] as part of an ongoing water quality manager program and in compliance with federally [...] Surgical Pathology and Flow Cytometry Departments of [facility]. It has not been cleared or approved by the U. S. Food and Drug Administration. IMAGES AND SCANNED DOCUMENTS, IF INCLUDED, ONLY VIEWABLE IN PDF VERSION OF REPORT us Young Vasquez MD LAB PATHOLOGY ORDERABL ES Final Result PATHOLOGY [facility] 3rd Floor [place], [place] [phone] * EGD (12/26/2024 8:55 AM CDT) Anatomical Region Laterality Modality Other Narrative Procedure Note Young Vasquez MD - 12/26/2024 8:55 AM CDT [facility] Patient Name: Brissa Angela Procedure Date: 12/26/2024 8:55 AM Date of : 1995 Admit Type: Outpatient Age: 29 Gender: Female Attending MD: Young Vasquez M.D., Room: [facility] ENDOSCOPY ROOM 8 Note Status: Finalized [...] HCG, ur, POC Negative Negative Lot Number \[id number] QC Backgroud Clear Acceptable QC Control Line Acceptable Urine 12/26/2024 8:43 AM CDT Young Vasquez MD POINT OF CARE TEST ORD ERABLES Final Result * POCT glucose (12/26/2024 8:41 AM CDT) Glucose, POC 102 70 - 199 mg/dL Blood 12/26/2024 8:41 AM CDT 12/26/2024 8:41 AM CDT Young Vasquez MD LAB POCT ORDERABLES - DEVICE Final Result Performing Organization Address City/[facility] Co de Phone Number [facility] [place] [address] * (ABNORMAL) POCT glucose (12/26/2024 7:53 AM CDT) Glucose, POC 67(L) 70 - 199 mg/dL Blood 12/26/2024 7:53 AM CDT 12/26/2024 7:53 AM CDT Young Vasquez MD LAB POCT ORDERABLES - DEVICE Final Result [facility] Department [place] [address] * (ABNORMAL) eGFR (12/26/2024 7:03 AM CDT) Pathologist [facility] eGFR 8(L) >=60 mL/min/1. [...] LAB BLOOD ORDERABLES F inal Result [facility] Department [place] [address] * (ABNORMAL) Comprehensive metabolic panel (12/26/2024 7:03 AM CDT) Pathologist [facility] Sodium 129(L) 135 - 145 mmol/L Potassium, pl 4.8 3.3 - 4.9 mmol/L [facility] Comment:Hemolyzed; Potassium value may be falsely elevated by as much as 0.6-1.0 mmol/L. Suggest redraw and reanalysis. Chloride 94(L) 97 - 110 mmol/L [facility] CO2 25 22 - 32 mmol/L [facility] Anion gap 10 2 - 15 mmol/L [facility] BUN 18 6 - 25 mg/dL [facility] Creatinine 6.44(H) 0.60 - 1.10 mg/dL [facility] Glucose 110 70 - 199 mg/dL [facility] Comment: Interpretive Data Fasting glucose [...] Calcium 8.2(L) 8.5 - 10.3 mg/dL [facility] Bilirubin, total 0.4 0.1 - 1.2 mg/dL [facility] Protein, pl 7.9 6.5 - 8.5 g/dL [facility] Albumin 3.7 3.5 - 5.0 g/dL [facility] Alk phos 181(H) 40 - 130 Units/L [facility] ALT 18 7 - 45 Units/L [facility] AST 31 10 - 45 Units/L [facility] Comment:Hemolyzed; result ma y be falsely elevated Blood 12/26/2024 7:03 AM CDT 12/26/2024 7:04 AM CDT Young Vasquez MD LAB BLOOD ORDERABLES F inal Result [facility] Department [place] [address] * CT Abdomen and Pelvis Enterography W [...] fistula. Electronically signed by: Arielle Sharpe M.D. us Young Vasquez MD IMG CT PROCEDURES Marli [...] signed by Mahin CORDOVA T: Report ID: [id number] Reading Location: [id number] Procedure Note Mahin Balderrama MD - 12/22/2024 [...] signed by Mahin CORDOVA T: Report ID: [id number] Reading Location: [id number] us Raul Clark DO IMG CT PROCEDURES Final [...] signed by Mahin CORDOVA T: Report ID: [id number] Reading Location: [id number] Procedure Note Mahin Balderrama MD - 12/22/2024 [...] signed by Mahin CORDOVA T: Report ID: [id number] Reading Location: [id number] Raul Clark DO IMG CT PROCEDURES Final [...] by Andrei Nguyen M.D. T: Report ID: [id number] Reading Location: [id number] Procedure Note Andrei Nguyen MD - 12/10/2024 [...] by Andrei Nguyen M.D. T: Report ID: [id number] Reading Location: [place] [address] Raul Clark DO IMG XR PROCEDURES Final [...] by Andrei Nguyen M.D. T: Report ID: [id number] Reading Location: [id number] Procedure Note Andrei Nguyen MD - 12/10/2024 [...] by Andrei Nguyen M.D. T: Report ID: [id number] Reading Location: [id number] us Raul Clark DO IMG XR PROCEDURES Final Result * XR Ankle Right 3+ Vw (11/21/2024 5:34 PM CDT) Anatomical Region Laterality Modality Lower Extremities, Ankle Right Radiogr aphic Imaging Edgardo Aldridge MD IMG XR PROCEDURES Final Resul t * XR Outside Reference (11/16/2024 12:05 AM CDT) Narrative RAD_MELISSA_MARKELLB_MHE - 12/07/2024 1:05 PM CDT This order has been auto-finalized and does not contain a result. us Provider Transcribed Order IMG XR PROCEDURES Fin al Result Performing Organization Address [facility]/ZIP Co de Phone Number [email or web address] * SCAN - RADIOLOGY/IMAGING (11/16/2024) Anatomical Region Laterality Modality Other Edgardo Aldridge MD Final Result * XR Outside Reference (11/16/2024 12:00 AM CDT) Narrative RAD_MELISSA_ARABELAL_MHE - 12/07/2024 1:05 PM CDT This order has been auto-finalized and does not contain a result. us Provider Transcribed Order IMG XR PROCEDURES Fin al Result Performing Organization Address [facility]/ZIP Co de Phone Number [email or web address] * CT Chest WO Contrast (11/11/2024) Anatomical Region Laterality Modality Body N/A Computed Tomogra phy Historical Provider IMG CT PROCEDURES Final R esult * (ABNORMAL) POCT glucose (11/05/2024 7:20 AM CDT) Glucose, POC 366(H) 70 - 199 mg/dL Blood 11/05/2024 7:20 AM CDT 11/05/2024 7:20 AM CDT Dutch Blake MD LAB POCT ORDERABLES - DEVICE Final Result [facility] [place] [address] * POCT glucose (11/05/2024 2:37 AM CDT) Glucose, POC 175 70 - 199 mg/dL Blood 11/05/2024 2:37 AM CDT 11/05/2024 2:37 AM CDT Dutch Blake MD LAB POCT ORDERABLES - DEVICE Final Result Performing Organization Address [facility] Co de Phone Number [facility] [place] [address] * (ABNORMAL) eGFR (11/04/2024 9:18 PM CDT) [...] PhD LAB BLOOD ORDERABLES Final Result [facility] Department [place] [address] * Differential, auto (11/04/2024 9:18 PM CDT) Neutrophil abs 5.81 1.50 - 6.50 K/cumm Imm gran abs 0.04 0.00 - 0.10 K/cumm [facility] Lymphocyte abs 1.45 0.80 - 3.30 K/cumm [facility] Monocyte abs 0.63 0.20 - 0.80 K/cumm [facility] Eosinophil abs 0.33 0.00 - 0.50 K/cumm [facility] Basophil abs 0.02 0.00 - 0.10 K/cumm [facility] Neutrophil pct 70.2 % [facility] Comment: Interpretive Data Percent cell count reference ranges are not reported, since discordance with absolute values may lead to misinterpretation of CBC data. Current Interpretive Data was last revised on 2017. Imm gran pct 0.5 % [facility] Comment: Interpretive Data Percent cell count reference ranges are not reported, since discordance with absolute values may lead to misinterpretation of CBC data. Current Interpretive Data was last revised on 2017. Lymphocyte pct 17.5 % [facility] Comment: Interpretive Data Percent cell count reference ranges are not reported, since discordance with absolute values may lead to misinterpretation of CBC data. Current Interpretive Data was last revised on 2017. Monocyte pct 7.6 % [facility] Comment: Interpretive Data Percent cell count reference ranges are not reported, since discordance with absolute values may lead to misinterpretation of CBC data. Current Interpretive Data was last revised on 2017. Eosinophil pct 4.0 % [facility] Comment: Interpretive Data Percent cell count reference ranges are not reported, since discordance with absolute values may lead to misinterpretation of CBC data. Current Interpretive Data was last revised on 2017. Basophil pct 0.2 % [facility] Comment: Interpretive Data Percent cell count reference ranges are not reported, since discordance with absolute values may lead to misinterpretation of CBC data. Current Interpretive Data was last revised on 2017. Blood 11/04/2024 9:18 PM CDT 11/04/2024 10:29 PM CDT Luciano Hayes MD PhD LAB BLOOD ORDERABLES Final Result Performing Organization Address City/[facility] Co de Phone Number [facility] Department [place] [address] * (ABNORMAL) CBC with auto differential (11/04/2024 9:18 PM CDT) [facility] WBC 8.28 3.80 - 9.90 K/cumm Hgb 8.8(L) 11.9 - 15.5 g/dL [facility] Hct 27.1(L) 35.6 - 45.5 % [facility] Plt 218 150 - 400 K/cumm [facility] MPV 11.1 9.1 - 12.3 fL [facility] RBC 3.15(L) 3.90 - 5.20 M/cumm [facility] MCV 86.0 81.3 - 96.4 fL [facility] MCH 27.9 27.1 - 33.3 pg [facility] MCHC 32.5 32.3 - 35.7 g/dL [facility] RDW CV 16.2(H) 11.1 - 14.9 % [facility] RDW SD 51.3(H) 35.7 - 48.1 fL [facility] NRBC abs 0.00 0.00 - 0.01 K/cumm [facility] Blood 11/04/2024 9:18 PM CDT 11/04/2024 10:29 PM CDT Luciano Hayes MD PhD LAB BLOOD ORDERABLES Final Result Performing Organization Address City/[facility]/ZIP Co de Phone Number [facility] Department [place] [address] * (ABNORMAL) Basic metabolic panel (11/04/2024 9:18 PM CDT) Pathologist [facility] Sodium 141 135 - 145 mmol/L Potassium, pl 4.2 3.3 - 4.9 mmol/L [facility] Chloride 100 97 - 110 mmol/L [facility] CO2 30 22 - 32 mmol/L [facility] Anion gap 11 2 - 15 mmol/L [facility] BUN 13 6 - 25 mg/dL [facility] Creatinine 3.27(H) 0.60 - 1.10 mg/dL [facility] Glucose 241(H) 70 - 199 mg/dL [facility] Comment: Interpretive Data Fasting glucose [...] Calcium 8.2(L) 8.5 - 10.3 mg/dL [facility] Blood 11/04/2024 9:18 PM CDT 11/04/2024 10:06 PM CDT us Luciano Hayes MD PhD LAB BLOOD ORDERABLES Final Result Performing Organization Address [facility]/ZIP Co de Phone Number [facility] Department [place] [address] * (ABNORMAL) POCT glucose (11/04/2024 9:16 PM CDT) Pathologist [facility] Glucose, POC 231(H) 70 - 199 mg/dL Blood 11/04/2024 9:16 PM CDT 11/04/2024 9:16 PM CDT Dutch Blake MD LAB POCT ORDERABLES - DEVICE Final Result Performing Organization Address City/[facility]/[place]IP [place] [address] * (ABNORMAL) POCT glucose (11/04/2024 6:50 PM CDT) Glucose, POC 380(H) 70 - 199 mg/dL Blood 11/04/2024 6:50 PM CDT 11/04/2024 6:50 PM CDT Dutch Blake MD LAB POCT ORDERABLES - DEVICE Final Result Performing Organization Address City/[facility] [place] [address] * POCT glucose (11/04/2024 3:55 PM CDT) Glucose, POC 184 70 - 199 mg/dL Blood 11/04/2024 3:55 PM CDT 11/04/2024 3:55 PM CDT us Dutch Blake MD LAB POCT ORDERABLES - DEVICE Final Result Performing Organization Address City/[facility] [place] [address] * POCT glucose (11/04/2024 12:51 PM CDT) Glucose, POC 122 70 - 199 mg/dL Blood 11/04/2024 12:5 1 PM CDT 11/04/2024 12:51 PM CDT Dutch Blake MD LAB POCT ORDERABLES - DEVICE Final Result Performing Organization Address City/[facility] [place] [address] * POCT glucose (11/04/2024 7:16 AM CDT) Glucose, POC 107 70 - 199 mg/dL Blood 11/04/2024 7:16 AM CDT 11/04/2024 7:16 AM CDT Dutch Blake MD LAB POCT ORDERABLES - DEVICE Final Result Performing Organization Address City/[facility]/ZIP Co de Phone Number [facility] [place] [address] * POCT glucose (11/04/2024 2:03 AM CDT) Glucose, POC 145 70 - 199 mg/dL Comment:Glu2: RN/MD Notified Glucose comment 1 Glu2: RN/MD Notified [facility] Blood 11/04/2024 2:03 AM CDT 11/04/2024 2:03 AM CDT Dutch Blake MD LAB POCT ORDERABLES - DEVICE Final Result Performing Organization Address City/[facility] Co de Phone Number [facility] [place] [address] * (ABNORMAL) eGFR (11/03/2024 10:59 PM CDT) Pathologist [facility] eGFR 9(L) >=60 [...] PhD LAB BLOOD ORDERABLES Final Result [facility] Department [place] [address] * Differential, auto (11/03/2024 10:59 PM CDT) Pathologist [facility] Neutrophil abs 3.37 1.50 - 6.50 K/cumm Imm gran abs 0.01 0.00 - 0.10 K/cumm [facility] Lymphocyte abs 2.13 0.80 - 3.30 K/cumm [facility] Monocyte abs 0.62 0.20 - 0.80 K/cumm [facility] Eosinophil abs 0.34 0.00 - 0.50 K/cumm [facility] Basophil abs 0.02 0.00 - 0.10 K/cumm [facility] Neutrophil pct 51.9 % [facility] Comment: Interpretive Data Percent cell count reference ranges are not reported, since discordance with absolute values may lead to misinterpretation of CBC data. Current Interpretive Data was last revised on 2017. Imm gran pct 0.2 % [facility] Comment: Interpretive Data Percent cell count reference ranges are not reported, since discordance with absolute values may lead to misinterpretation of CBC data. Current Interpretive Data was last revised on 2017. Lymphocyte pct 32.8 % [facility] Comment: Interpretive Data Percent cell count reference ranges are not reported, since discordance with absolute values may lead to misinterpretation of CBC data. Current Interpretive Data was last revised on 2017. Monocyte pct 9.6 % [facility] Comment: Interpretive Data Percent cell count reference ranges are not reported, since discordance with absolute values may lead to misinterpretation of CBC data. Current Interpretive Data was last revised on 2017. Eosinophil pct 5.2 % [facility] Comment: Interpretive Data Percent cell count reference ranges are not reported, since discordance with absolute values may lead to misinterpretation of CBC data. Current Interpretive Data was last revised on 2017. Basophil pct 0.3 % [facility] Comment: Interpretive Data Percent cell count reference ranges are not reported, since discordance with absolute values may lead to misinterpretation of CBC data. Current Interpretive Data was last revised on 2017. Blood 11/03/2024 10:5 9 PM CDT 11/04/2024 12:07 AM CDT us Luciano Hayes MD PhD LAB BLOOD ORDERABLES Final Result [facility] Department [place] [address] * (ABNORMAL) CBC with auto differential (11/03/2024 10:59 PM CDT) WBC 6.49 3.80 - 9.90 K/cumm Hgb 8.5(L) 11.9 - 15.5 g/dL [facility] Hct 27.2(L) 35.6 - 45.5 % [facility] Plt 219 150 - 400 K/cumm [facility] MPV 11.1 9.1 - 12.3 fL [facility] RBC 3.04(L) 3.90 - 5.20 M/cumm [facility] MCV 89.5 81.3 - 96.4 fL [facility] MCH 28.0 27.1 - 33.3 pg [facility] MCHC 31.3(L) 32.3 - 35.7 g/dL [facility] RDW CV 16.4(H) 11.1 - 14.9 % [facility] RDW SD 53.7(H) 35.7 - 48.1 fL [facility] NRBC abs 0.00 0.00 - 0.01 K/cumm [facility] Blood 11/03/2024 10:5 9 PM CDT 11/04/2024 12:07 AM CDT Luciano Hayes MD PhD LAB BLOOD ORDERABLES Final Result [facility] Department [place] [address] * (ABNORMAL) Basic metabolic panel (11/03/2024 10:59 PM CDT) [facility] Sodium 141 135 - 145 mmol/L Potassium, pl 4.3 3.3 - 4.9 mmol/L [facility] Chloride 103 97 - 110 mmol/L [facility] CO2 28 22 - 32 mmol/L [facility] Anion gap 10 2 - 15 mmol/L [facility] BUN 38(H) 6 - 25 mg/dL [facility] Creatinine 6.03(H) 0.60 - 1.10 mg/dL [facility] Glucose 224(H) 70 - 199 mg/dL [facility] Comment: Interpretive Data Fasting glucose [...] Calcium 7.9(L) 8.5 - 10.3 mg/dL [facility] Blood 11/03/2024 10:5 9 PM CDT 11/04/2024 12:06 AM CDT Luciano Hayes MD PhD LAB BLOOD ORDERABLES Final Result Performing Organization Address City/[facility]/ZIP Co de Phone [facility] [place] [address] * (ABNORMAL) POCT glucose (11/03/2024 8:37 PM CDT) Glucose, POC 254(H) 70 - 199 mg/dL Comment:Glu2: RN/MD Notified Glucose comment 1 Glu2: RN/MD Notified [facility] Blood 11/03/2024 8:37 PM CDT 11/03/2024 8:37 PM CDT Dutch Blake MD LAB POCT ORDERABLES - DEVICE Final Result Performing Organization Address [facility] Co de Phone Number [facility] [place] [address] * (ABNORMAL) POCT glucose (11/03/2024 4:17 PM CDT) Glucose, POC 290(H) 70 - 199 mg/dL Blood 11/03/2024 4:17 PM CDT 11/03/2024 4:17 PM CDT us Dutch Blake MD LAB POCT ORDERABLES - DEVICE Final Result Performing Organization Address [facility] de Phone Number [facility] [place] [address] * (ABNORMAL) POCT glucose (11/03/2024 11:20 AM CDT) Glucose, POC 222(H) 70 - 199 mg/dL Comment:Glu2: RN/ Notified Glucose comment 1 Glu2: RN/MD Notified [facility] Blood 11/03/2024 11:2 0 AM CDT 11/03/2024 11:20 AM CDT us Dutch Blake MD LAB POCT ORDERABLES - DEVICE Final Result Performing Organization Address City/[facility] Co de Phone Number [facility] [place] [address] * (ABNORMAL) POCT glucose (11/03/2024 9:35 AM CDT) Glucose, POC 224(H) 70 - 199 mg/dL Blood 11/03/2024 9:35 AM CDT 11/03/2024 9:35 AM CDT Dutch Blake MD LAB POCT ORDERABLES - DEVICE Final Result Performing Organization Address [facility] Co de Phone Number [facility] [place] [address] * (ABNORMAL) POCT glucose (11/03/2024 8:21 AM CDT) Glucose, POC 64(L) 70 - 199 mg/dL Blood 11/03/2024 8:21 AM CDT 11/03/2024 8:21 AM CDT Dutch Blake MD LAB POCT ORDERABLES - DEVICE Final Result Performing Organization Address [facility] Co de Phone Number [facility] [place] [address] * POCT glucose (11/03/2024 7:21 AM CDT) Glucose, POC 125 70 - 199 mg/dL Blood 11/03/2024 7:21 AM CDT 11/03/2024 7:21 AM CDT Dutch Blake MD LAB POCT ORDERABLES - DEVICE Final Result Performing Organization Address [facility] de Phone Number [facility] [place] [address] * (ABNORMAL) POCT glucose (11/03/2024 6:49 AM CDT) Glucose, POC 231(H) 70 - 199 mg/dL Blood 11/03/2024 6:49 AM CDT 11/03/2024 6:49 AM CDT Dutch Blake MD LAB POCT ORDERABLES - DEVICE Final Result Performing Organization Address [facility] de Phone Number [facility] [place] [address] * (ABNORMAL) POCT glucose (11/03/2024 5:37 AM CDT) Glucose, POC 467(C) 70 - 199 mg/dL Comment: Glu2: RN/MD Notified Critical Value Noted Glucose comment 1 Glu2: RN/MD Notified [facility] Glucose comment 2 Critical Value Noted [facility] Blood 11/03/2024 5:37 AM CDT 11/03/2024 5:37 AM CDT us Dutch Blake MD LAB POCT ORDERABLES - DEVICE Final Result Performing Organization Address [facility] de Phone Number [facility] [place] [address] * (ABNORMAL) POCT glucose (11/03/2024 3:39 AM CDT) Glucose, POC 536(C) 70 - 199 mg/dL Comment: Glu2: Critical Value Noted RN/MD Notified Glucose comment 2 RN/MD Notified [facility] Blood 11/03/2024 3:39 AM CDT 11/03/2024 3:39 AM CDT Dutch Blake MD LAB POCT ORDERABLES - DEVICE Final Result Performing Organization Address [facility] Co de Phone Number [facility] [place] [address] * (ABNORMAL) eGFR (11/03/2024 2:25 AM CDT) [...] PhD LAB BLOOD ORDERABLES Final Result [facility] Department [place] [address] * Differential, auto (11/03/2024 2:25 AM CDT) Neutrophil abs 3.18 1.50 - 6.50 K/cumm Imm gran abs 0.02 0.00 - 0.10 K/cumm [facility] Lymphocyte abs 1.48 0.80 - 3.30 K/cumm [facility] Monocyte abs 0.57 0.20 - 0.80 K/cumm [facility] Eosinophil abs 0.21 0.00 - 0.50 K/cumm [facility] Basophil abs 0.01 0.00 - 0.10 K/cumm [facility] Neutrophil pct 58.1 % [facility] Comment: Interpretive Data Percent cell count reference ranges are not reported, since discordance with absolute values may lead to misinterpretation of CBC data. Current Interpretive Data was last revised on 2017. Imm gran pct 0.4 % [facility] Comment: Interpretive Data Percent cell count reference ranges are not reported, since discordance with absolute values may lead to misinterpretation of CBC data. Current Interpretive Data was last revised on 2017. Lymphocyte pct 27.1 % [facility] Comment: Interpretive Data Percent cell count reference ranges are not reported, since discordance with absolute values may lead to misinterpretation of CBC data. Current Interpretive Data was last revised on 2017. Monocyte pct 10.4 % [facility] Comment: Interpretive Data Percent cell count reference ranges are not reported, since discordance with absolute values may lead to misinterpretation of CBC data. Current Interpretive Data was last revised on 2017. Eosinophil pct 3.8 % [facility] Comment: Interpretive Data Percent cell count reference ranges are not reported, since discordance with absolute values may lead to misinterpretation of CBC data. Current Interpretive Data was last revised on 2017. Basophil pct 0.2 % [facility] Comment: Interpretive Data Percent cell count reference ranges are not reported, since discordance with absolute values may lead to misinterpretation of CBC data. Current Interpretive Data was last revised on 2017. Blood 11/03/2024 2:25 AM CDT 11/03/2024 4:01 AM CDT Luciano Hayes MD PhD LAB BLOOD ORDERABLES Final Result [facility] Department [place] [address] * Critical Result Callback Chemistry (11/03/2024 2:25 AM CDT) Date Notified [id number] Time Notified 435 HERBER JIMENEZ TestName Glucose HERBER KENNEDY Called/Read Back Aaron JIMENEZ Credentials RN HERBER JIMENEZ Called By abdulkadir JIMENEZ Blood 11/03/2024 2:25 AM CDT 11/03/2024 4:02 AM CDT Luciano Hayes MD PhD LAB BLOOD ORDERABLES Final Result Performing Organization Address [facility] Co de Phone Number [facility] [place] [address] * (ABNORMAL) CBC with auto differential (11/03/2024 2:25 AM CDT) [facility] WBC 5.47 3.80 - 9.90 K/cumm Hgb 8.9(L) 11.9 - 15.5 g/dL [facility] Hct 28.5(L) 35.6 - 45.5 % [facility] Plt 233 150 - 400 K/cumm [facility] MPV 10.9 9.1 - 12.3 fL [facility] RBC 3.23(L) 3.90 - 5.20 M/cumm [facility] MCV 88.2 81.3 - 96.4 fL [facility] MCH 27.6 27.1 - 33.3 pg [facility] MCHC 31.2(L) 32.3 - 35.7 g/dL [facility] RDW CV 16.4(H) 11.1 - 14.9 % [facility] RDW SD 53.1(H) 35.7 - 48.1 fL [facility] NRBC abs 0.00 0.00 - 0.01 K/cumm [facility] Blood 11/03/2024 2:25 AM CDT 11/03/2024 4:01 AM CDT Luciano Hayes MD PhD LAB BLOOD ORDERABLES Final Result Performing Organization Address City/[facility]/ZIP Co de Phone Number [facility] [place] [address] * (ABNORMAL) Basic metabolic panel (11/03/2024 2:25 AM CDT) [facility] Sodium 135 135 - 145 mmol/L Comment:Sample investigated and found to be analytically accurate. If results do not match clinical presentation, improper collection (e.g., IV fluid contamination, improper tube type, mislabel) should be considered and re-collection recommended. Potassium, pl 4.7 3.3 - 4.9 mmol/L [facility] Comment:Sample investigated and found to be analytically accurate. If results do not match clinical presentation, improper collection (e.g., IV fluid contamination, improper tube type, mislabel) should be considered and re-collection recommended. Chloride 95(L) 97 - 110 mmol/L [facility] Comment:Sample investigated and found to be analytically accurate. If results do not match clinical presentation, improper collection (e.g., IV fluid contamination, improper tube type, mislabel) should be considered and re-collection recommended. CO2 29 22 - 32 mmol/L [facility] Comment:Sample investigated and found to be analytically accurate. If results do not match clinical presentation, improper collection (e.g., IV fluid contamination, improper tube type, mislabel) should be considered and re-collection recommended. Anion gap 11 2 - 15 mmol/L [facility] Comment:Sample investigated and found to be analytically accurate. If results do not match clinical presentation, improper collection (e.g., IV fluid contamination, improper tube type, mislabel) should be considered and re-collection recommended. BUN 21 6 - 25 mg/dL [facility] Comment:Sample investigated and found to be analytically accurate. If results do not match clinical presentation, improper collection (e.g., IV fluid contamination, improper tube type, mislabel) should be considered and re-collection recommended. Creatinine 4.22(H) 0.60 - 1.10 mg/dL [facility] Comment:Sample investigated and found to be analytically accurate. If results do not match clinical presentation, improper collection (e.g., IV fluid contamination, improper tube type, mislabel) should be considered and re-collection recommended. Glucose 700(C) 70 - 199 mg/dL [facility] Comment: Sample investigated and found to be [...] Calcium 7.4(L) 8.5 - 10.3 mg/dL [facility] Comment:Sample investigated and found to be analytically accurate. If results do not match clinical presentation, improper collection (e.g., IV fluid contamination, improper tube type, mislabel) should be considered and re-collection recommended. Blood 11/03/2024 2:25 AM CDT 11/03/2024 4:02 AM CDT us Luciano Hayes MD PhD LAB BLOOD ORDERABLES Final Result Performing Organization Address City/[facility]/ZIP Co de Phone Number [facility] Department [place] [address] * (ABNORMAL) POCT glucose (11/03/2024 2:03 AM CDT) Glucose, POC >600(C) 70 - 199 mg/dL Comment:Glu2: KADY/ Notified Glucose comment 1 Glu2: KADY/ Notified [facility] Blood 11/03/2024 2:03 AM CDT 11/03/2024 2:03 AM CDT us Dutch Blake MD LAB POCT ORDERABLES - DEVICE Final Result [facility] [place] [address] * (ABNORMAL) POCT glucose (11/02/2024 8:42 PM CDT) Glucose, POC 204(H) 70 - 199 mg/dL Comment:Glu2: KADY/ Notified Glucose comment 1 Glu2: RN/MD Notified [facility] Blood 11/02/2024 8:42 PM CDT 11/02/2024 8:42 PM CDT Dutch Blake MD LAB POCT ORDERABLES - DEVICE Final Result Performing Organization Address [facility] de Phone Number [facility] [place] [address] * (ABNORMAL) POCT glucose (11/02/2024 6:19 PM CDT) Glucose, POC 236(H) 70 - 199 mg/dL Blood 11/02/2024 6:19 PM CDT 11/02/2024 6:19 PM CDT Dutch Blake MD LAB POCT ORDERABLES - DEVICE Final Result Performing Organization Address [facility] de Phone Number [facility] [place] [address] * (ABNORMAL) POCT glucose (11/02/2024 12:54 PM CDT) Glucose, POC 281(H) 70 - 199 mg/dL Blood 11/02/2024 12:5 4 PM CDT 11/02/2024 12:54 PM CDT Dutch Blake MD LAB POCT ORDERABLES - DEVICE Final Result Performing Organization Address [facility] [place] [address] * Post Dialysis BUN (11/02/2024 11:27 AM CDT) BUN Post 9 6 - 25 mg/dL Blood 11/02/2024 11:2 7 AM CDT 11/02/2024 12:06 PM CDT Patel-Cathy Rodri Middleton LAB BLOOD ORDERABLES Marli l Result Performing Organization Address [facility] Co de Phone Number [facility] [place] [address] * (ABNORMAL) Pre Dialysis BUN (11/02/2024 8:37 AM CDT) BUN Pre 37(H) 6 - 25 mg/dL Blood 11/02/2024 8:37 AM CDT 11/02/2024 8:49 AM CDT Replaced by [facility] LAB BLOOD ORDERABLES Marli l Result Performing Organization Address [facility] de Phone Number [facility] [place] [address] * POCT glucose (11/02/2024 7:39 AM CDT) Glucose, POC 198 70 - 199 mg/dL Blood 11/02/2024 7:39 AM CDT 11/02/2024 7:39 AM CDT Duthc Blake MD LAB POCT ORDERABLES - DEVICE Final Result Performing Organization Address [facility] de Phone Number [facility] Department [place] [address] * (ABNORMAL) POCT glucose (11/02/2024 3:12 AM CDT) Glucose, POC 268(H) 70 - 199 mg/dL Blood 11/02/2024 3:12 AM CDT 11/02/2024 3:12 AM CDT Dutch Blake MD LAB POCT ORDERABLES - DEVICE Final Result Performing Organization Address [facility] Co de Phone Number [facility] [place] [address] * (ABNORMAL) eGFR (11/01/2024 9:45 PM CDT) [...] LAB BLOOD ORDERABLES Final Result HERBER JIMENEZ [facility] Department [place] [address] * Differential, auto (11/01/2024 9:45 PM CDT) Pathologist [facility] Neutrophil abs 2.74 1.50 - 6.50 K/cumm Imm gran abs 0.01 0.00 - 0.10 K/cumm [facility] Lymphocyte abs 1.86 0.80 - 3.30 K/cumm [facility] Monocyte abs 0.71 0.20 - 0.80 K/cumm [facility] Eosinophil abs 0.17 0.00 - 0.50 K/cumm [facility] Basophil abs 0.02 0.00 - 0.10 K/cumm [facility] Neutrophil pct 49.6 % [facility] Comment: Interpretive Data Percent cell count reference ranges are not reported, since discordance with absolute values may lead to misinterpretation of CBC data. Current Interpretive Data was last revised on 2017. Imm gran pct 0.2 % [facility] Comment: Interpretive Data Percent cell count reference ranges are not reported, since discordance with absolute values may lead to misinterpretation of CBC data. Current Interpretive Data was last revised on 2017. Lymphocyte pct 33.8 % [facility] Comment: Interpretive Data Percent cell count reference ranges are not reported, since discordance with absolute values may lead to misinterpretation of CBC data. Current Interpretive Data was last revised on 2017. Monocyte pct 12.9 % [facility] Comment: Interpretive Data Percent cell count reference ranges are not reported, since discordance with absolute values may lead to misinterpretation of CBC data. Current Interpretive Data was last revised on 2017. Eosinophil pct 3.1 % [facility] Comment: Interpretive Data Percent cell count reference ranges are not reported, since discordance with absolute values may lead to misinterpretation of CBC data. Current Interpretive Data was last revised on 2017. Basophil pct 0.4 % [facility] Comment: Interpretive Data Percent cell count reference ranges are not reported, since discordance with absolute values may lead to misinterpretation of CBC data. Current Interpretive Data was last revised on 2017. Blood 11/01/2024 9:45 PM CDT 11/01/2024 10:31 PM CDT us Luciano Hayes MD PhD LAB BLOOD ORDERABLES Final Result [facility] Department [place] [address] * (ABNORMAL) CBC with auto differential (11/01/2024 9:45 PM CDT) WBC 5.51 3.80 - 9.90 K/cumm Hgb 9.0(L) 11.9 - 15.5 g/dL [facility] Hct 28.1(L) 35.6 - 45.5 % [facility] Plt 286 150 - 400 K/cumm [facility] MPV 11.0 9.1 - 12.3 fL [facility] RBC 3.28(L) 3.90 - 5.20 M/cumm [facility] MCV 85.7 81.3 - 96.4 fL [facility] MCH 27.4 27.1 - 33.3 pg [facility] MCHC 32.0(L) 32.3 - 35.7 g/dL [facility] RDW CV 16.4(H) 11.1 - 14.9 % [facility] RDW SD 50.9(H) 35.7 - 48.1 fL [facility] NRBC abs 0.00 0.00 - 0.01 K/cumm [facility] Blood 11/01/2024 9:45 PM CDT 11/01/2024 10:31 PM CDT Luciano Hayes MD PhD LAB BLOOD ORDERABLES Final Result [facility] [place] [address] * (ABNORMAL) Basic metabolic panel (11/01/2024 9:45 PM CDT) Sodium 142 135 - 145 mmol/L Potassium, pl 3.9 3.3 - 4.9 mmol/L [facility] Chloride 102 97 - 110 mmol/L [facility] CO2 27 22 - 32 mmol/L [facility] Anion gap 13 2 - 15 mmol/L [facility] BUN 36(H) 6 - 25 mg/dL [facility] Creatinine 6.00(H) 0.60 - 1.10 mg/dL [facility] Glucose 197 70 - 199 mg/dL [facility] Comment: Interpretive Data Fasting glucose [...] Calcium 6.9(L) 8.5 - 10.3 mg/dL [facility] Blood 11/01/2024 9:45 PM CDT 11/01/2024 10:31 PM CDT us Luciano Hayes MD PhD LAB BLOOD ORDERABLES Final Result Performing Organization Address [facility] Co de Phone Number [facility] [place] [address] * POCT glucose (11/01/2024 9:30 PM CDT) Glucose, POC 184 70 - 199 mg/dL Blood 11/01/2024 9:30 PM CDT 11/01/2024 9:30 PM CDT Dutch Blake MD LAB POCT ORDERABLES - DEVICE Final Result Performing Organization Address [facility] de Phone Number [facility] [place] [address] * POCT glucose (11/01/2024 4:50 PM CDT) Glucose, POC 130 70 - 199 mg/dL Comment:Glu2: RN/MD Notified Glucose comment 1 Glu2: RN/MD Notified [facility] Blood 11/01/2024 4:50 PM CDT 11/01/2024 4:50 PM CDT Dutch Blake MD LAB POCT ORDERABLES - DEVICE Final Result Performing Organization Address [facility] Co de Phone Number [facility] Department [place] [address] * (ABNORMAL) POCT glucose (11/01/2024 11:49 AM CDT) Glucose, POC 201(H) 70 - 199 mg/dL Comment:Glu2: KADY/ Notified Glucose comment 1 Glu2: KADY/ Notified [facility] Blood 11/01/2024 11:4 9 AM CDT 11/01/2024 11:49 AM CDT us Dutch Blake MD LAB POCT ORDERABLES - DEVICE Final Result Performing Organization Address City/[facility]/ZIP Co de Phone Number [facility] [place] [address] * (ABNORMAL) POCT glucose (11/01/2024 8:12 AM CDT) Glucose, POC 338(H) 70 - 199 mg/dL Comment:Glu2: ARIANA Notified Glucose comment 1 Glu2: KADY/ Notified [facility] Blood 11/01/2024 8:12 AM CDT 11/01/2024 8:12 AM CDT us Dutch Blake MD LAB POCT ORDERABLES - DEVICE Final Result Performing Organization Address City/[facility]/ZIP Co de Phone Number [facility] [place] [address] * (ABNORMAL) POCT glucose (11/01/2024 1:38 AM CDT) Glucose, POC 232(H) 70 - 199 mg/dL Comment:Glu2: ARIANA Notified Glucose comment 1 Glu2: KADY/ Notified [facility] Blood 11/01/2024 1:38 AM CDT 11/01/2024 1:38 AM CDT us Dutch Blake MD LAB POCT ORDERABLES - DEVICE Final Result Performing Organization Address [facility] Co de Phone Number [facility] Department [place] [address] * (ABNORMAL) eGFR (10/31/2024 11:30 PM CDT) Pathologist [facility] eGFR 14(L) >=60 mL/min/1. [...] BLOOD ORDERABLES Final Result Performing Organization Address City/[facility] Co de Phone Number [facility] [place] [address] * (ABNORMAL) Differential, auto (10/31/2024 11:30 PM CDT) Pathologist [facility] Neutrophil abs 7.04(H) 1.50 - 6.50 K/cumm Imm gran abs 0.03 0.00 - 0.10 K/cumm [facility] Lymphocyte abs 0.83 0.80 - 3.30 K/cumm [facility] Monocyte abs 0.28 0.20 - 0.80 K/cumm [facility] Eosinophil abs 0.09 0.00 - 0.50 K/cumm [facility] Basophil abs 0.02 0.00 - 0.10 K/cumm [facility] Neutrophil pct 84.9 % [facility] Comment: Interpretive Data Percent cell count reference ranges are not reported, since discordance with absolute values may lead to misinterpretation of CBC data. Current Interpretive Data was last revised on 2017. Imm gran pct 0.4 % [facility] Comment: Interpretive Data Percent cell count reference ranges are not reported, since discordance with absolute values may lead to misinterpretation of CBC data. Current Interpretive Data was last revised on 2017. Lymphocyte pct 10.0 % [facility] Comment: Interpretive Data Percent cell count reference ranges are not reported, since discordance with absolute values may lead to misinterpretation of CBC data. Current Interpretive Data was last revised on 2017. Monocyte pct 3.4 % [facility] Comment: Interpretive Data Percent cell count reference ranges are not reported, since discordance with absolute values may lead to misinterpretation of CBC data. Current Interpretive Data was last revised on 2017. Eosinophil pct 1.1 % [facility] Comment: Interpretive Data Percent cell count reference ranges are not reported, since discordance with absolute values may lead to misinterpretation of CBC data. Current Interpretive Data was last revised on 2017. Basophil pct 0.2 % [facility] Comment: Interpretive Data Percent cell count reference ranges are not reported, since discordance with absolute values may lead to misinterpretation of CBC data. Current Interpretive Data was last revised on 2017. Blood 10/31/2024 11:3 0 PM CDT 10/31/2024 11:57 PM CDT Luciano Hayes MD PhD LAB BLOOD ORDERABLES Final Result [facility] Department [place] [address] * (ABNORMAL) CBC with auto differential (10/31/2024 11:30 PM CDT) [facility] WBC 8.29 3.80 - 9.90 K/cumm Hgb 10.4(L) 11.9 - 15.5 g/dL [facility] Hct 31.4(L) 35.6 - 45.5 % [facility] Plt 304 150 - 400 K/cumm [facility] MPV 11.2 9.1 - 12.3 fL [facility] RBC 3.72(L) 3.90 - 5.20 M/cumm [facility] MCV 84.4 81.3 - 96.4 fL [facility] MCH 28.0 27.1 - 33.3 pg [facility] MCHC 33.1 32.3 - 35.7 g/dL [facility] RDW CV 16.2(H) 11.1 - 14.9 % [facility] RDW SD 50.7(H) 35.7 - 48.1 fL [facility] NRBC abs 0.00 0.00 - 0.01 K/cumm [facility] Blood 10/31/2024 11:3 0 PM CDT 10/31/2024 11:57 PM CDT Luciano Hayes MD PhD LAB BLOOD ORDERABLES Final Result [facility] Department [place] [address] * (ABNORMAL) Basic metabolic panel (10/31/2024 11:30 PM CDT) [facility] Sodium 137 135 - 145 mmol/L Potassium, pl 3.8 3.3 - 4.9 mmol/L [facility] Chloride 97 97 - 110 mmol/L [facility] CO2 25 22 - 32 mmol/L [facility] Anion gap 15 2 - 15 mmol/L [facility] BUN 20 6 - 25 mg/dL [facility] Creatinine 4.28(H) 0.60 - 1.10 mg/dL [facility] Glucose 230(H) 70 - 199 mg/dL [facility] Comment: Interpretive Data Fasting glucose [...] Calcium 7.8(L) 8.5 - 10.3 mg/dL [facility] Blood 10/31/2024 11:3 0 PM CDT 10/31/2024 11:56 PM CDT Luciano Hayes MD PhD LAB BLOOD ORDERABLES Final Result Performing Organization Address [facility] de Phone Number [facility] Department [place] [address] * POCT glucose (10/31/2024 8:07 PM CDT) Glucose, POC 191 70 - 199 mg/dL Blood 10/31/2024 8:07 PM CDT 10/31/2024 8:07 PM CDT Dutch Blake MD LAB POCT ORDERABLES - DEVICE Final Result Performing Organization Address [facility] de Phone Number [facility] Department [place] [address] * POCT glucose (10/31/2024 5:26 PM CDT) Glucose, POC 108 70 - 199 mg/dL Blood 10/31/2024 5:26 PM CDT 10/31/2024 5:26 PM CDT Dutch Blake MD LAB POCT ORDERABLES - DEVICE Final Result Performing Organization Address [facility]/ZIP Co de Phone Number [facility] [place] [address] * POCT glucose (10/31/2024 1:18 PM CDT) Glucose, POC 96 70 - 199 mg/dL Blood 10/31/2024 1:18 PM CDT 10/31/2024 1:18 PM CDT Dutch Blake MD LAB POCT ORDERABLES - DEVICE Final Result Performing Organization Address City/[facility] Co de Phone Number [facility] [place] [address] * Hepatitis B Surface Antigen Blood (10/31/2024 9:31 AM CDT) [facility] HepBsAg Nonreactive Nonreactive Blood 10/31/2024 9:31 AM CDT 10/31/2024 9:57 AM CDT Francisco Middleton DO LAB MICROBIOLOGY - GENERA L ORDERABLES Final Result Performing Organization Address [facility] [place] [address] * POCT glucose (10/31/2024 7:50 AM CDT) Glucose, POC 79 70 - 199 mg/dL Comment:Glu2: RN/MD Notified Glucose comment 1 Glu2: RN/MD Notified [facility] Blood 10/31/2024 7:50 AM CDT 10/31/2024 7:50 AM CDT Dutch Blake MD LAB POCT ORDERABLES - DEVICE Final Result Performing Organization Address City/[facility]/ZIP Co de Phone Number [facility] [place] [address] * POCT glucose (10/31/2024 1:56 AM CDT) Glucose, POC 87 70 - 199 mg/dL Blood 10/31/2024 1:56 AM CDT 10/31/2024 1:56 AM CDT Dutch Blake MD LAB POCT ORDERABLES - DEVICE Final Result Performing Organization Address City/[facility]/ZIP Co de Phone Number [facility] [place] [address] * (ABNORMAL) eGFR (10/30/2024 9:57 PM CDT) [...] BLOOD ORDERABLES Final Result Performing Organization Address City/[facility]/ZIP Co de Phone Number [facility] Department [place] [address] * Differential, auto (10/30/2024 9:57 PM CDT) Neutrophil abs 2.96 1.50 - 6.50 K/cumm Imm gran abs 0.02 0.00 - 0.10 K/cumm [facility] Lymphocyte abs 2.18 0.80 - 3.30 K/cumm [facility] Monocyte abs 0.55 0.20 - 0.80 K/cumm [facility] Eosinophil abs 0.29 0.00 - 0.50 K/cumm [facility] Basophil abs 0.03 0.00 - 0.10 K/cumm [facility] Neutrophil pct 49.1 % [facility] Comment: Interpretive Data Percent cell count reference ranges are not reported, since discordance with absolute values may lead to misinterpretation of CBC data. Current Interpretive Data was last revised on 2017. Imm gran pct 0.3 % [facility] Comment: Interpretive Data Percent cell count reference ranges are not reported, since discordance with absolute values may lead to misinterpretation of CBC data. Current Interpretive Data was last revised on 2017. Lymphocyte pct 36.2 % [facility] Comment: Interpretive Data Percent cell count reference ranges are not reported, since discordance with absolute values may lead to misinterpretation of CBC data. Current Interpretive Data was last revised on 2017. Monocyte pct 9.1 % [facility] Comment: Interpretive Data Percent cell count reference ranges are not reported, since discordance with absolute values may lead to misinterpretation of CBC data. Current Interpretive Data was last revised on 2017. Eosinophil pct 4.8 % [facility] Comment: Interpretive Data Percent cell count reference ranges are not reported, since discordance with absolute values may lead to misinterpretation of CBC data. Current Interpretive Data was last revised on 2017. Basophil pct 0.5 % [facility] Comment: Interpretive Data Percent cell count reference ranges are not reported, since discordance with absolute values may lead to misinterpretation of CBC data. Current Interpretive Data was last revised on 2017. Blood 10/30/2024 9:57 PM CDT 10/30/2024 10:39 PM CDT Luciano Hayes MD PhD LAB BLOOD ORDERABLES Final Result [facility] Department [place] [address] * Beta-hydroxybutyrate (10/30/2024 9:57 PM CDT) [facility] Beta-Hydroxybut yrate 0.1 0.0 - 0.5 mmol/L Blood 10/30/2024 9:57 PM CDT 10/30/2024 10:28 PM CDT Luciano Hayes MD PhD LAB BLOOD ORDERABLES Edited Result - Final Performing Organization Address City/[facility] Co de Phone Number [facility] [place] [address] * (ABNORMAL) CBC with auto differential (10/30/2024 9:57 PM CDT) [facility] WBC 6.03 3.80 - 9.90 K/cumm Hgb 8.9(L) 11.9 - 15.5 g/dL [facility] Hct 27.6(L) 35.6 - 45.5 % [facility] Plt 277 150 - 400 K/cumm [facility] MPV 11.0 9.1 - 12.3 fL [facility] RBC 3.17(L) 3.90 - 5.20 M/cumm [facility] MCV 87.1 81.3 - 96.4 fL [facility] MCH 28.1 27.1 - 33.3 pg [facility] MCHC 32.2(L) 32.3 - 35.7 g/dL [facility] RDW CV 16.4(H) 11.1 - 14.9 % [facility] RDW SD 52.3(H) 35.7 - 48.1 fL [facility] NRBC abs 0.00 0.00 - 0.01 K/cumm [facility] Blood 10/30/2024 9:57 PM CDT 10/30/2024 10:39 PM CDT Luciano Hayes MD PhD LAB BLOOD ORDERABLES Final Result [facility] Department [place] [address] * (ABNORMAL) Basic metabolic panel (10/30/2024 9:57 PM CDT) [facility] Sodium 138 135 - 145 mmol/L Potassium, pl 4.2 3.3 - 4.9 mmol/L [facility] Chloride 100 97 - 110 mmol/L [facility] CO2 26 22 - 32 mmol/L [facility] Anion gap 12 2 - 15 mmol/L [facility] BUN 45(H) 6 - 25 mg/dL [facility] Creatinine 6.91(H) 0.60 - 1.10 mg/dL [facility] Glucose 252(H) 70 - 199 mg/dL [facility] Comment: Interpretive Data Fasting glucose [...] Calcium 8.1(L) 8.5 - 10.3 mg/dL [facility] Blood 10/30/2024 9:57 PM CDT 10/30/2024 10:39 PM CDT Luciano Hayes MD PhD LAB BLOOD ORDERABLES Final Result Performing Organization Address [facility]/ZIP Co de Phone Number [facility] Department [place] [address] * (ABNORMAL) POCT glucose (10/30/2024 8:29 PM CDT) Glucose, POC 361(H) 70 - 199 mg/dL Comment:Glu2: RN/MD Notified Glucose comment 1 Glu2: RN/MD Notified [facility] Blood 10/30/2024 8:29 PM CDT 10/30/2024 8:29 PM CDT Dennis Cadet MD LAB POCT ORDERABLES - DEV ICE Final Result Performing Organization Address City/[facility]/ZIP Co de Phone Number [facility] [place] [address] * (ABNORMAL) POCT glucose (10/30/2024 5:10 PM CDT) Glucose, POC 292(H) 70 - 199 mg/dL Blood 10/30/2024 5:10 PM CDT 10/30/2024 5:10 PM CDT Dennis Cadet MD LAB POCT ORDERABLES - DEV ICE Final Result Performing Organization Address [facility] Co de Phone Number [facility] [place] [address] * (ABNORMAL) POCT glucose (10/30/2024 1:08 PM CDT) Glucose, POC 251(H) 70 - 199 mg/dL Blood 10/30/2024 1:08 PM CDT 10/30/2024 1:08 PM CDT Luciano Hayes MD PhD LAB POCT ORDERABLES - DEVIC E Final Result Performing Organization Address City/[facility] Co de Phone Number [facility] [place] [address] * (ABNORMAL) POCT glucose (10/30/2024 11:19 AM CDT) Glucose, POC 270(H) 70 - 199 mg/dL Blood 10/30/2024 11:1 9 AM CDT 10/30/2024 11:19 AM CDT Luciano Hayes MD PhD LAB POCT ORDERABLES - DEVIC E Final Result Performing Organization Address [facility] Co de Phone Number [facility] [place] [address] * (ABNORMAL) eGFR (10/30/2024 9:10 AM CDT) [...] ORDERABLES Fi nal Result Performing Organization Address [facility]/ZIP Co de Phone Number [facility] Department [place] [address] * (ABNORMAL) Beta-hydroxybutyrate (10/30/2024 9:10 AM CDT) Beta-Hydroxybut yrate 0.6(H) 0.0 - 0.5 mmol/L Blood 10/30/2024 9:10 AM CDT 10/30/2024 9:23 AM CDT Dennis Cadet MD LAB BLOOD ORDERABLES Marli l Result [facility] Department [place] [address] * (ABNORMAL) Basic metabolic panel (10/30/2024 9:10 AM CDT) [facility] Sodium 139 135 - 145 mmol/L Potassium, pl 4.7 3.3 - 4.9 mmol/L [facility] Comment:Hemolyzed; Potassium value may be falsely elevated by as much as 0.6-1.0 mmol/L. Suggest redraw and reanalysis. Chloride 102 97 - 110 mmol/L [facility] CO2 24 22 - 32 mmol/L [facility] Anion gap 13 2 - 15 mmol/L [facility] BUN 37(H) 6 - 25 mg/dL [facility] Creatinine 5.68(H) 0.60 - 1.10 mg/dL [facility] Glucose 214(H) 70 - 199 mg/dL [facility] Comment: Interpretive Data Fasting glucose [...] Calcium 7.9(L) 8.5 - 10.3 mg/dL [facility] Blood 10/30/2024 9:10 AM CDT 10/30/2024 9:27 AM CDT Crystal Schuster MD LAB BLOOD ORDERABLES Fi nal Result Performing Organization Address City/[facility]/ZIP Co de Phone Number [facility] [place] [address] * POCT glucose (10/30/2024 8:07 AM CDT) Glucose, POC 172 70 - 199 mg/dL Blood 10/30/2024 8:07 AM CDT 10/30/2024 8:07 AM CDT Luciano Hayes MD PhD LAB POCT ORDERABLES - DEVIC E Final Result Performing Organization Address [facility] Co de Phone Number [facility] [place] [address] * POCT glucose (10/30/2024 6:31 AM CDT) Glucose, POC 173 70 - 199 mg/dL Blood 10/30/2024 6:31 AM CDT 10/30/2024 6:31 AM CDT Dennis Cadet MD LAB POCT ORDERABLES - DEV ICE Final Result Performing Organization Address City/[facility]/ZIP Co de Phone Number [facility] [place] [address] * POCT glucose (10/30/2024 4:02 AM CDT) Glucose, POC 88 70 - 199 mg/dL Blood 10/30/2024 4:02 AM CDT 10/30/2024 4:02 AM CDT Dennis Cadet MD LAB POCT ORDERABLES - DEV ICE Final Result Performing Organization Address City/[facility]/ZIP Co de Phone Number [facility] [place] [address] * POCT glucose (10/30/2024 2:30 AM CDT) Glucose, POC 95 70 - 199 mg/dL Blood 10/30/2024 2:30 AM CDT 10/30/2024 2:30 AM CDT Dennis Cadet MD LAB POCT ORDERABLES - DEV ICE Final Result Performing Organization Address City/[facility]/ZIP Co de Phone Number [facility] [place] [address] * (ABNORMAL) eGFR (10/30/2024 2:24 AM CDT) Pathologist [facility] eGFR 10(L) >=60 [...] ORDERABLES Fi nal Result Performing Organization Address City/[facility]/ZIP Co de Phone Number [facility] Department [place] [address] * (ABNORMAL) Differential, auto (10/30/2024 2:24 AM CDT) Neutrophil abs 7.45(H) 1.50 - 6.50 K/cumm Imm gran abs 0.03 0.00 - 0.10 K/cumm [facility] Lymphocyte abs 2.30 0.80 - 3.30 K/cumm [facility] Monocyte abs 0.93(H) 0.20 - 0.80 K/cumm [facility] Eosinophil abs 0.09 0.00 - 0.50 K/cumm [facility] Basophil abs 0.03 0.00 - 0.10 K/cumm [facility] Neutrophil pct 68.8 % [facility] Comment: Interpretive Data Percent cell count reference ranges are not reported, since discordance with absolute values may lead to misinterpretation of CBC data. Current Interpretive Data was last revised on 2017. Imm gran pct 0.3 % [facility] Comment: Interpretive Data Percent cell count reference ranges are not reported, since discordance with absolute values may lead to misinterpretation of CBC data. Current Interpretive Data was last revised on 2017. Lymphocyte pct 21.2 % [facility] Comment: Interpretive Data Percent cell count reference ranges are not reported, since discordance with absolute values may lead to misinterpretation of CBC data. Current Interpretive Data was last revised on 2017. Monocyte pct 8.6 % [facility] Comment: Interpretive Data Percent cell count reference ranges are not reported, since discordance with absolute values may lead to misinterpretation of CBC data. Current Interpretive Data was last revised on 2017. Eosinophil pct 0.8 % [facility] Comment: Interpretive Data Percent cell count reference ranges are not reported, since discordance with absolute values may lead to misinterpretation of CBC data. Current Interpretive Data was last revised on 2017. Basophil pct 0.3 % [facility] Comment: Interpretive Data Percent cell count reference ranges are not reported, since discordance with absolute values may lead to misinterpretation of CBC data. Current Interpretive Data was last revised on 2017. Blood 10/30/2024 2:24 AM CDT 10/30/2024 2:44 AM CDT Sandra Eddy MD LAB BLOOD ORDERABLES Final Resul t Performing Organization Address [facility] Co de Phone Number [facility] [place] [address] * (ABNORMAL) CBC with auto differential (10/30/2024 2:24 AM CDT) WBC 10.83(H) 3.80 - 9.90 K/cumm Hgb 9.3(L) 11.9 - 15.5 g/dL [facility] Hct 28.7(L) 35.6 - 45.5 % [facility] Plt 292 150 - 400 K/cumm [facility] MPV 11.0 9.1 - 12.3 fL [facility] RBC 3.34(L) 3.90 - 5.20 M/cumm [facility] MCV 85.9 81.3 - 96.4 fL [facility] MCH 27.8 27.1 - 33.3 pg [facility] MCHC 32.4 32.3 - 35.7 g/dL [facility] RDW CV 16.9(H) 11.1 - 14.9 % [facility] RDW SD 52.8(H) 35.7 - 48.1 fL [facility] NRBC abs 0.00 0.00 - 0.01 K/cumm [facility] Blood 10/30/2024 2:24 AM CDT 10/30/2024 2:44 AM CDT us Sandra Eddy MD LAB BLOOD ORDERABLES Final Resul t Performing Organization Address [facility]/ZIP Co de Phone Number [facility] [place] [address] * (ABNORMAL) Hemoglobin A1c (10/30/2024 2:24 AM CDT) Hgb A1C 8.8(H) 4.0 - 5.6 % Estimated Average Glucose 206 mg/dL [facility] Comment: The ADA recommends reporting [...] ORDERABLES Marli l Result Performing Organization Address [facility] Co de Phone Number [facility] [place] [address] * Blood gas, venous (10/30/2024 2:24 AM CDT) pH, Venous 7.34 7.32 - 7.43 PCO2, Venous 50 40 - 50 mmHg [facility] PO2, Venous 41 mmHg [facility] Comment: Interpretive Data No Reference Range Established Current Interpretive Data was last revised on 2017. HCO3 Venous, Calculated 28 20 - 30 mmol/L [facility] BE, venous 1 mmol/L [facility] Comment: Interpretive Data No Reference Range Established Current Interpretive Data was last revised on 2017. Blood 10/30/2024 2:24 AM CDT 10/30/2024 2:31 AM CDT Crystal Schuster MD LAB BLOOD ORDERABLES Fi nal Result Performing Organization Address City/[facility]/ZIP Co de Phone Number [facility] [place] [address] * (ABNORMAL) Basic metabolic panel (10/30/2024 2:24 AM CDT) Sodium 143 135 - 145 mmol/L Potassium, pl 3.6 3.3 - 4.9 mmol/L [facility] Chloride 106 97 - 110 mmol/L [facility] CO2 28 22 - 32 mmol/L [facility] Anion gap 9 2 - 15 mmol/L [facility] BUN 35(H) 6 - 25 mg/dL [facility] Creatinine 5.56(H) 0.60 - 1.10 mg/dL [facility] Glucose 112 70 - 199 mg/dL [facility] Comment: Interpretive Data Fasting glucose [...] Calcium 7.8(L) 8.5 - 10.3 mg/dL [facility] Blood 10/30/2024 2:24 AM CDT 10/30/2024 2:43 AM CDT Crystal Schuster MD LAB BLOOD ORDERABLES Fi nal Result [facility] Department [place] [address] * POCT glucose (10/30/2024 12:01 AM CDT) Glucose, POC 181 70 - 199 mg/dL Blood 10/30/2024 12:0 1 AM CDT 10/30/2024 12:01 AM CDT us Dennis Cadet MD LAB POCT ORDERABLES - DEV ICE Final Result Performing Organization Address [facility]/ZIP Co de Phone Number [facility] Department [place] [address] * (ABNORMAL) POCT glucose (10/29/2024 10:01 PM CDT) Glucose, POC 297(H) 70 - 199 mg/dL Blood 10/29/2024 10:0 1 PM CDT 10/29/2024 10:01 PM CDT Dennis Cadet MD LAB POCT ORDERABLES - DEV ICE Final Result Performing Organization Address City/[facility] Co de Phone Number [facility] Department [place] [address] * (ABNORMAL) POCT glucose (10/29/2024 8:26 PM CDT) Pathologist [facility] Glucose, POC 290(H) 70 - 199 mg/dL Blood 10/29/2024 8:26 PM CDT 10/29/2024 8:26 PM CDT Dennis Cadet MD LAB POCT ORDERABLES - DEV ICE Final Result Performing Organization Address [facility] de Phone Number [facility] Department [place] [address] * (ABNORMAL) eGFR (10/29/2024 8:13 PM CDT) [facility] eGFR 11(L) >=60 mL/min/1. 73 m2 [...] LAB BLOOD ORDERABLES Final R esult [facility] Department [place] [address] * Lipid panel (10/29/2024 8:13 PM CDT) [...] revised on 2017. Triglycerides 92 <=149 mg/dL [facility] Comment: Interpretive Data Ages < or = [...] on 2017. HDL 49 >=40 mg/dL [facility] Comment: Interpretive Data Ages < or = [...] on 2017. LDL, calculated 58 <=129 mg/dL [facility] Comment: Interpretive Data Ages < or = [...] on 2023. Non-HDL Cholesterol 75 mg/dL [facility] Comment: Interpretive Data Ages < [...] revised on 2017. Chol/HDL ratio 3 [facility] Blood 10/29/2024 8:13 PM CDT 10/29/2024 8:27 PM CDT Dennis aCdet MD LAB BLOOD ORDERABLES Marli l Result [facility] Department [place] [address] * (ABNORMAL) Basic metabolic panel (10/29/2024 8:13 PM CDT) Sodium 143 135 - 145 mmol/L Potassium, pl 4.1 3.3 - 4.9 mmol/L [facility] Chloride 102 97 - 110 mmol/L [facility] CO2 23 22 - 32 mmol/L [facility] Anion gap 18(H) 2 - 15 mmol/L [facility] BUN 31(H) 6 - 25 mg/dL [facility] Creatinine 5.00(H) 0.60 - 1.10 mg/dL [facility] Glucose 266(H) 70 - 199 mg/dL [facility] Comment: Interpretive Data Fasting glucose [...] Calcium 7.7(L) 8.5 - 10.3 mg/dL [facility] Blood 10/29/2024 8:13 PM CDT 10/29/2024 8:27 PM CDT us Ari Us MD LAB BLOOD ORDERABLES Final R esult [facility] Department [place] [address] * (ABNORMAL) POCT glucose (10/29/2024 4:00 PM CDT) Glucose, POC 290(H) 70 - 199 mg/dL Comment:Glu2: RN/ Notified Glucose comment 1 Glu2: RN/MD Notified [facility] Blood 10/29/2024 4:00 PM CDT 10/29/2024 4:00 PM CDT us Ciaran Medina MD LAB POCT ORDERABLES - DEVICE Final Result Performing Organization Address [facility] Co de Phone Number [facility] [place] [address] * (ABNORMAL) POCT glucose (10/29/2024 12:58 PM CDT) Glucose, POC 299(H) 70 - 199 mg/dL Blood 10/29/2024 12:5 8 PM CDT 10/29/2024 12:58 PM CDT us Nathan Moore MD LAB POCT ORDERABLES - DE VICE Final Result Performing Organization Address [facility] de Phone Number [facility] [place] [address] * (ABNORMAL) POCT glucose (10/29/2024 11:55 AM CDT) Glucose, POC 309(H) 70 - 199 mg/dL Comment:Glu2: RN/ Notified Glucose comment 1 Glu2: RN/MD Notified [facility] Blood 10/29/2024 11:5 5 AM CDT 10/29/2024 11:55 AM CDT us Nathan Moore MD LAB POCT ORDERABLES - DE VICE Final Result Performing Organization Address [facility] Co de Phone Number [facility] [place] [address] * XR Chest PA Lateral 2 Views [...] DE VICE Final Result Performing Organization Address City/[facility]/ZIP Co de Phone Number [facility] Department [place] [address] * Potassium, whole blood (10/29/2024 11:03 AM CDT) Potassium, bld 4.2 3.3 - 4.9 mmol/L Blood 10/29/2024 11:0 3 AM CDT 10/29/2024 11:15 AM CDT us Ari Us MD LAB BLOOD ORDERABLES Final R esult Performing Organization Address [facility] Co de Phone Number [facility] [place] [address] * (ABNORMAL) eGFR (10/29/2024 11:03 AM CDT) [...] MD LAB BLOOD ORDERABLES Final R esult [facility] Department [place] [address] * (ABNORMAL) Differential, auto (10/29/2024 11:03 AM CDT) Neutrophil abs 8.42(H) 1.50 - 6.50 K/cumm Imm gran abs 0.04 0.00 - 0.10 K/cumm [facility] Lymphocyte abs 1.17 0.80 - 3.30 K/cumm [facility] Monocyte abs 0.52 0.20 - 0.80 K/cumm [facility] Eosinophil abs 0.17 0.00 - 0.50 K/cumm [facility] Basophil abs 0.04 0.00 - 0.10 K/cumm [facility] Neutrophil pct 81.3 % [facility] Comment: Interpretive Data Percent cell count reference ranges are not reported, since discordance with absolute values may lead to misinterpretation of CBC data. Current Interpretive Data was last revised on 2017. Imm gran pct 0.4 % [facility] Comment: Interpretive Data Percent cell count reference ranges are not reported, since discordance with absolute values may lead to misinterpretation of CBC data. Current Interpretive Data was last revised on 2017. Lymphocyte pct 11.3 % [facility] Comment: Interpretive Data Percent cell count reference ranges are not reported, since discordance with absolute values may lead to misinterpretation of CBC data. Current Interpretive Data was last revised on 2017. Monocyte pct 5.0 % [facility] Comment: Interpretive Data Percent cell count reference ranges are not reported, since discordance with absolute values may lead to misinterpretation of CBC data. Current Interpretive Data was last revised on 2017. Eosinophil pct 1.6 % [facility] Comment: Interpretive Data Percent cell count reference ranges are not reported, since discordance with absolute values may lead to misinterpretation of CBC data. Current Interpretive Data was last revised on 2017. Basophil pct 0.4 % [facility] Comment: Interpretive Data Percent cell count reference ranges are not reported, since discordance with absolute values may lead to misinterpretation of CBC data. Current Interpretive Data was last revised on 2017. Blood 10/29/2024 11:0 3 AM CDT 10/29/2024 11:21 AM CDT Nathan Moore MD LAB BLOOD ORDERABLES Fin al Result Performing Organization Address City/[facility]/ZIP Co de Phone Number [facility] Department [place] [address] * (ABNORMAL) CBC with auto differential (10/29/2024 11:03 AM CDT) WBC 10.36(H) 3.80 - 9.90 K/cumm Hgb 11.5(L) 11.9 - 15.5 g/dL [facility] Hct 35.0(L) 35.6 - 45.5 % [facility] Plt 345 150 - 400 K/cumm [facility] MPV 11.2 9.1 - 12.3 fL [facility] RBC 4.14 3.90 - 5.20 M/cumm [facility] MCV 84.5 81.3 - 96.4 fL [facility] MCH 27.8 27.1 - 33.3 pg [facility] MCHC 32.9 32.3 - 35.7 g/dL [facility] RDW CV 16.6(H) 11.1 - 14.9 % [facility] RDW SD 50.8(H) 35.7 - 48.1 fL [facility] NRBC abs 0.00 0.00 - 0.01 K/cumm [facility] Blood 10/29/2024 11:0 3 AM CDT 10/29/2024 11:21 AM CDT Nathan Moore MD LAB BLOOD ORDERABLES Fin al Result Performing Organization Address City/[facility]/ZIP Co de Phone Number [facility] Department [place] [address] * Lipase (10/29/2024 11:03 AM CDT) Pathologist [facility] Lipase 49 10 - 99 Units/L Blood 10/29/2024 11:0 3 AM CDT 10/29/2024 11:21 AM CDT Ari Us MD LAB BLOOD ORDERABLES Final R esult Performing Organization Address [facility] [place] [address] * (ABNORMAL) Hemoglobin A1c (10/29/2024 11:03 AM CDT) [facility] Hgb A1C 9.1(H) 4.0 - 5.6 % Estimated Average Glucose 214 mg/dL [facility] Comment: The ADA recommends reporting [...] ORDERABLES Marli l Result Performing Organization Address [facility] [place] [address] * Blood gas, venous (10/29/2024 11:03 AM CDT) [facility] pH, Venous 7.35 7.32 - 7.43 PCO2, Venous 50 40 - 50 mmHg [facility] PO2, Venous 41 mmHg [facility] Comment: Interpretive Data No Reference Range Established Current Interpretive Data was last revised on 2017. HCO3 Venous, Calculated 28 20 - 30 mmol/L [facility] BE, venous 1 mmol/L [facility] Comment: Interpretive Data No Reference Range Established Current Interpretive Data was last revised on 2017. Blood 10/29/2024 11:0 3 AM CDT 10/29/2024 11:15 AM CDT Ari Us MD LAB BLOOD ORDERABLES Final R esult Performing Organization Address [facility] de Phone Number [facility] [place] [address] * (ABNORMAL) Hepatic function panel (10/29/2024 11:03 AM CDT) Pathologist [facility] Bilirubin, total 0.4 0.1 - 1.2 mg/dL Bilirubin, direct <0.2 0.1 - 0.3 mg/dL [facility] Protein, pl 8.5 6.5 - 8.5 g/dL [facility] Albumin 4.4 3.5 - 5.0 g/dL [facility] Alk phos 336(H) 40 - 130 Units/L [facility] ALT 42 7 - 45 Units/L [facility] AST 39 10 - 45 Units/L [facility] Blood 10/29/2024 11:0 3 AM CDT 10/29/2024 11:21 AM CDT us Ari Us MD LAB BLOOD ORDERABLES Final R esult Performing Organization Address [facility] de Phone Number [facility] [place] [address] * (ABNORMAL) Basic metabolic panel (10/29/2024 11:03 AM CDT) Pathologist [facility] Sodium 138 135 - 145 mmol/L Potassium, pl 4.0 3.3 - 4.9 mmol/L [facility] Chloride 94(L) 97 - 110 mmol/L [facility] CO2 26 22 - 32 mmol/L [facility] Anion gap 18(H) 2 - 15 mmol/L [facility] BUN 28(H) 6 - 25 mg/dL [facility] Creatinine 4.75(H) 0.60 - 1.10 mg/dL [facility] Glucose 358(H) 70 - 199 mg/dL [facility] Comment: Interpretive Data Fasting glucose [...] Calcium 8.5 8.5 - 10.3 mg/dL [facility] Blood 10/29/2024 11:0 3 AM CDT 10/29/2024 11:21 AM CDT us Ari Us MD LAB BLOOD ORDERABLES Final R esult [facility] [place] [address] * (ABNORMAL) POCT ketone, blood (10/29/2024 10:22 AM CDT) Beta-Hydroxybut yrate, POC 1.2(H) 0.0 - 0.5 mmol/L Blood 10/29/2024 10:2 2 AM CDT 10/29/2024 10:22 AM CDT us Nathan Moore MD LAB POCT ORDERABLES - DE VICE Final Result [facility] [place] [address] * (ABNORMAL) POCT glucose (10/29/2024 10:21 AM CDT) Glucose, POC 274(H) 70 - 199 mg/dL Blood 10/29/2024 10:2 1 AM CDT 10/29/2024 10:21 AM CDT Nathan Moore MD LAB POCT ORDERABLES - DE VICE Final Result Performing Organization Address [facility] Co de Phone Number [facility] [place] [address] * TSH (01/09/2024 3:52 PM CDT) Thyroid Stimulating Hormone 2.46 0.30 - 4.20 mcIUnit/mL Blood 01/09/2024 3:52 PM CDT 01/09/2024 4:46 PM CDT Sailaja Ramos MD LAB BLOOD ORDERABLES Final Result Performing Organization Address [facility] Co me Phone Number [facility] [place] [address] * Hepatitis panel, acute Blood (12/24/2023 7:26 AM CDT) [facility] Hep A IgM Nonreactive Nonreactive Comment: Interpretive Data: If Hep A IgM Ab is reported as Equivocal, a new sample should be drawn in two weeks for testing. Current interpretive data was last revised on 19. Hep B core IgM Nonreactive Nonreactive [facility] Comment: Interpretive Data If HepB Core IgM Ab is reported as Equivocal, a new sample should be drawn in two weeks for testing. Current interpretive data was last revised on 19. Hep C Ab Nonreactive Nonreactive [facility] Comment: Antibodies to HCV not detected. Does [...] GENERAL OR DERABLES Final Result [facility] [address] 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 Source: [facility] [place]. 08/20/2024 [employer] Comment:Added from external infection. Source: [facility]. [facility]b pneumo [facility] 10/31/2024 10/31/2024 Insurance MEDICARE [facility] Address: [facility] [address] [place] [address] [facility] MEDICARE [employer] MEDICARE IDPA Advance Directives For more information, please contact: [phone] * Full Code (Latest Code Status on File) Date Activated Date Inactivated Comments 01/15/2025 6:38 PM 01/26/2025 3:20 PM * Full Code Date Activated Date Inactivated Comments 01/08/2025 5:57 PM 01/12/2025 6:22 PM * Full Code Date Activated Date Inactivated Comments 12/26/2024 8:03 AM 12/26/2024 3:18 PM * Full Code Date Activated Date Inactivated Comments 10/29/2024 8:40 PM 11/05/2024 2:34 PM * Full Code Date Activated Date Inactivated Comments 2024 2:03 PM 06/28/2024 7:52 PM Care Teams Psychiatric Lpn Relationship Specialty Start Date End Date Edgardo Aldridge MD [address] [facility] [address] [place] [address] PCP - General Family Medicine 04/02/23 Andrei Chaves MD PhD [address] [address] Referring Physician General Surgery 03/17/23 Olivia Phelps MD [address] [facility] [address] [place] [address] Consulting Physician Nephrology 03/17/23 Odilon Tellez MD [address] [facility] [address] [place] [address] Referring Physician Nephrology 11/12/23 Ayaka Thomas [facility] [address] [facility] [address] [place] [address] Fellow Internal Medicine 12/17/23 Yumi Jones NP [address] [place] [address] Nurse Practitioner Hospice and Palliative Medicine 08/16/23 Odilon Tellez MD [address] [place] [address] Consulting Physician Nephrology 12/05/24 Jaimie Glez, RN [address] [place] [address] [address] [place] [address] [facility] Pricing Consultant 01/29/25
--- OUTSIDE RECORDS SUMMARY | 2025-01-29 15:21 | XMS_ITS ---
Author Organization [facility] Address [address] [place] [address] Care Team Providers Care Fruit Or Nut Grower Name Role Phone Andrei Chaves MD PhD Unavailable [phone] Olivia Phelps MD Unavailable [phone] Edgardo Aldridge MD Primary Care Provider [phone] Odilon Tellez MD Unavailable [phone] Ayaka Thomas MD Unavailable [phone] Yumi Jones NP Unavailable [phone] Odilon Tellez MD Unavailable [phone] Jaimie Glez RN Unavailable [phone] Dialysis Access Sites Type Status Location Placement Date Removal Da te Hemodialysis Cath Double 11/03/23 Right Internal Jugular Active Right Neck (side) - Anterior 11/03/2023 Hemodialysis Cath Triple 10/27/23 Right Femoral Inactive Right Thigh - Anterior 10/27/2023 Hemodialysis Cath Double 09/17/22 Left Subclavian Inactive Left Breast - Upper 09/17/202201/2024 Hemodialysis AV Access 09/17/22 Subclavian Inactive Left Breast - Upper 09/17/2022 11/22/19 Historical Dialysis Procedures Date BP Pre BP Post Weight Pre Weight Post Treatment Duration Start Time End Time Achieved BFR Vascular Access from Last 30 Days Procedures Procedure Name Priority Date/Time Associated Diagnosis [...] 6:49 AM CDT CBC WITHOUT DIFFERENTIAL Routine 6:49 AM CDT BASIC METABOLIC PANEL Routine [...] PLACEMENT IP Routine 01/09/2025 10:32 AM CDT MN AN PROCEDURE PLACEHOLDER Routine 12/19 9:43 AM CDT MN AN ELECTIVE ENDOTRACHEAL AIRWAY Routine 01/09/2025 9:43 [...] AM CDT COLONOSCOPY 12/26/2024 9:16 AM CDT MN AN PROCEDURE PLACEHOLDER Routine 12/2024 9:02 AM CDT MN AN ELECTIVE ENDOTRACHEAL AIRWAY Routine 12/26/2024 9:02 [...] Medium 01/11/2024 Medications blood-glucose meter,continuous (Dexcom G6 Facility Manager) miscIndications:Unc ontrolled type 1 diabetes mellitus with hyperglycemia, with long-term current use of insulin (HCC) 1 Dexcom G6 Facility Manager 1 each 023 Active OneTouch Delica Plus Lancet 33 gauge misc Use to test BG 4x/day 100 each 11 Active OneTouch Verio Flex meter misc Use [...] mouth daily 90 tablet 3 2024 Active losartan (COZAAR) 100 mg tablet Take 1 tablet (100 mg total) by mouth daily 90 tablet 3 024 2024 Active Omnipod 5 G6-G7 Pods, Gen 5, cartridge USE DIRECTED AND CHANGE POD EVERY 3 DAYS 11/06/2 024 Active OLANZapine (ZyPREXA) 5 mg tablet Take 1 tablet (5 mg total) by mouth nightly Active loperamide (IMODIUM) 2 mg capsule Take 1 capsule (2 mg total) by mouth 4 (four) times a day as needed for diarrhea 15 capsule 025 Active blood-glucose sensor (Dexcom G6 Sensor) deviceIndications:U ncontrolled type 1 diabetes mellitus with hyperglycemia, with long-term current use of insulin ([facility]) Will use 1 sensor every 10 days. 1 box = 3 sensors. 3 each 11 025 Active blood-glucose transmitter (Dexcom G6 Transmitter) deviceIndications:U ncontrolled type 1 diabetes mellitus with hyperglycemia, with long-term current use of insulin ([facility]) Will use 1 transmitter every 90 days 1 each 3 025 Active amLODIPine (NORVASC) 10 mg tablet Take 1 tablet (10 mg total) by mouth daily 30 tablet 025 Active diphenhydrAMINE 25 mg capsule Take 1 [...] hours as needed for nausea or vomiting 025 Active OneTouch Verio test strips strip Use as directed up to four times a day. 100 each 1 025 Active acetaminophen 500 mg capsule Take 1 capsule (500 mg total) by mouth every 6 (six) hours as needed for pain or fever 025 Active polyethylene glycol (MIRALAX) 17 gram packet Take 1 packet (17 g total) by mouth daily as needed for constipation 025 Active ammonium lactate (LAC-HYDRIN) 12 % lotion [...] to four times a day. 100 each 1 Active glucagon (Gvoke HypoPen 2-Pack) 1 mg/0.2 mL auto-injector Inject 1 mg under the skin as directed by provider for low blood sugar. Active insulin lispro (HumaLOG, ADMELOG) 100 unit/mL vial for injectionIndication s:Diabetes Mellitus Inject 3 Units under the skin every 4 (four) hours 10 mL 025 2025 Active gabapentin (NEURONTIN) solution 250 mg/5 [...] times a day with meals 90 tablet 025 2025 Active insulin lispro (HumaLOG, ADMELOG) 100 [...] every 15 grams carbohydrate eaten 10 mL 025 2025 Active insulin glargine (LANTUS) 100 unit/mL [...] or as directed by MD. 30 patch 2024 Discontinued( Therapy completed) pantoprazole DR (PROTONIX) 40 mg EC tablet Take 1 tablet (40 mg total) by mouth 2 (two) times a day 60 tablet 2024 Discontinued( Duplicate order) doxazosin (CARDURA) 8 mg tablet Take 1 tablet (8 mg total) by mouth nightly 30 tablet 2024 Discontinued( Therapy completed) insulin lispro (HumaLOG, ADMELOG) 100 unit/mL pen for injection Inject 10 Units under the skin 3 (three) times a day with meals 9 mL 2024 Discontinued( Stop Taking at Discharge) insulin glargine 100 unit/mL (3 mL) pen for injection Inject 20 Units under the skin daily 6 mL 025 2024 Discontinued( Stop Taking at Discharge) metoprolol XL (TOPROL-XL) 200 mg extended release tablet Take 1 tablet (200 mg total) by mouth daily 30 tablet 025 2024 Discontinued( Duplicate order) Saccharomyces boulardii (FLORASTOR) 250 mg capsule Take 1 capsule (250 mg total) by mouth 2 (two) times a day 2024 Discontinued( Therapy completed) cholestyramine (QUESTRAN) 4 gram packet Take 1 packet by mouth daily 025 2024 Discontinued( Therapy completed) L.acidoph-B.animali s-B.longum 15 billion cell capsule Take 1 capsule by mouth early education teacher before breakfast 2024 Discontinued( Therapy completed) albuterol [...] 3 (three) times a day with meals 025 2024 Discontinued insulin lispro (HumaLOG, ADMELOG) 100 unit/mL vial for injectionIndication s:Diabetes Mellitus Inject 6 Units under the skin every 4 (four) hours 025 2024 Discontinued insulin glargine (LANTUS) 100 [...] kidney, consider outpatient followup (e.g. renal US). 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 - prn antiemetics - RD aware: [...] - ADAT: Plan to try solid food 30 AM and tube feeds 01/16 PM - [...] admission. Assessment & Plan (05/13/2022 9:19 AM POLE SANDER OPERATOR): Glucose overall improved Continue current regimen [...] Assessment & Plan (05/15/2020 6:30 AM POLE SANDER OPERATOR): Uncontrolled Start cymbalta, xanax Odynophagia 04/09/2020 [...] not be able to see her own bottom polisher until September. Continue to monitor. 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 - continues to have severe abdominal [...] a diabetic diet Underwent G POEMS with DINESH on 06/23. MIS explained that she might [...] same. Plan change to esophageal diet today. Inclusion Manager to review prior to dc Plan f/u with Dr Chaves in GI as OP Assessment & Plan (03/31/2022 5:47 PM POLE SANDER OPERATOR): Type 1 diabetic Cyclical vomiting, gastroparesis [...] year. Has an appointment for GI in [place] next month. Currently is on SSI, but [...] Assessment & Plan (05/15/2020 2:56 PM POLE SANDER OPERATOR): Needs letter for another 2 weeks off and when returns needs intermittent restrictions on return with no more than 3 days per week, but not consecutive 3 days Assessment & Plan (05/15/2020 6:29 AM POLE SANDER OPERATOR): Uncontrolled Cont treatment per GI Cont reglan Has PICC line Assessment & Plan (06/27/2019 8:44 AM CDT): - Chronic emesis which triggers DKA. No active symptoms now. - PCP follow up. - Glucose control as above. Assessment & Plan (04/21/2019 1:24 PM POLE SANDER OPERATOR): -Patient reports h/o positive gastric emptying [...] had discussion with patient regarding pain control. shelter opioids would be a very poor choice for her, given her gastroparesis, young age, and potential for developing dependence/addiction. Will not discharge on opioids. 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 Assessment & Plan (03/20/2020 5:26 AM POLE SANDER OPERATOR): Uncontrolled Cont insulin pump per endocrinology [...] Assessment & Plan (03/31/2022 5:47 PM POLE SANDER OPERATOR): Not at goal Pt left office [...] Assessment & Plan (03/29/2020 5:24 AM POLE SANDER OPERATOR): Stable Cont lisinopril, amlodipine Assessment & [...] Assessment & Plan (06/12/2019 12:12 PM POLE SANDER OPERATOR): continue lisinopril and toprol xl , clonidine patch Assessment & Plan (06/11/2019 1:52 PM POLE SANDER OPERATOR): _BP better today , continue lisinopril and toprol xl Assessment & Plan (05/07/2019 2:03 PM POLE SANDER OPERATOR): On clonidine, metoprolol and lisinopril at home. - continue home clonidine and metoprolol - hold lisinopril for now (? EUGENIE related intestinal angioedema). May need to consider alternative anti-hypertensive if needed as a trial. Assessment & Plan (04/28/2019 4:43 PM POLE SANDER OPERATOR): - Cont home meds Assessment & Plan (04/27/2019 2:59 PM POLE SANDER OPERATOR): - Cont home meds Assessment & Plan (04/21/2019 12:59 PM POLE SANDER OPERATOR): Clonidine patch and metoprolol XL -BP stable Assessment & Plan (04/11/2019 12:43 PM POLE SANDER OPERATOR): Cont lisinopril and Toprol XL, and due for change of clonidine patch Assessment & Plan (04/10/2019 11:29 AM POLE SANDER OPERATOR): BP elevated this am but improved [...] often do you attend chur ch or episcopal services? Never 11/07/2024 Do you belong to any clubs o r organizations such as bahai groups, unions, fraternal or athletic groups, or [...] Date Recorded PHQ-2 Total Score 0 01/09/2025 [facility] [place] of Occupat ional Health - Occupational Stress [...] place to sleep or slept in a snf (including now)? No 08/30/2023 PHQ-9 Answer Date [...] any time in the past 12 m [facility], were you homeless or living in a snf (including now)? No 11/07/2024 Social Connection and Isolation Panel Answer Date Recorded In a typical week, how many times do you talk on the phone with family, friends, or neighbors? More than three times a week 01/17/2025 How often do you get togethe r with friends or relatives? More than three times a week 01/17/2025 How often do you attend chur ch or episcopal services? Never 01/17/2025 Do you belong to any clubs o r organizations such as bahai groups, unions, fraternal or athletic groups, or [...] any time in the past 12 m [facility], were you homeless or living in a snf (including now)? No 01/17/2025 [facility] Utilities Answer Date Recorded In the past [...] file Legal Sex Female 9:16 AM POLE SANDER OPERATOR Gender Identity Not on file Sexual [...] Mass Index 29.55 01/15/2025 6:11 PM CDT Results * POCT glucose (01/26/2025 10:36 AM CDT) Glucose, POC 135 70 - 199 mg/dL Comment: Interpretive Data Glucose is assumed to be non-fasting. Fasting Glucose reference ranges are: 0 - 150 years: 70 mg/dL - 99 mg/dL Current interpretive data was last revised on 2013. POC Device Number [id number] 1 HERBER MARCANO Blood 01/26/2025 10:3 6 AM CDT 01/26/2025 10:36 AM CDT Devang Henning MD LAB POCT ORDERABLES - DEVICE Final Result Performing Organization Address [facility] Co de Phone Number [facility] [address] [facility] [place] [address] * POCT glucose (01/26/2025 8:22 AM CDT) Glucose, POC 81 70 - 199 mg/dL Comment: Interpretive Data Glucose is assumed to be non-fasting. Fasting Glucose reference ranges are: 0 - 150 years: 70 mg/dL - 99 mg/dL Current interpretive data was last revised on 2013. POC Device Number [id number] 1 HERBER MARCANO Blood 01/26/2025 8:22 AM CDT 01/26/2025 8:22 AM CDT Devang Henning MD LAB POCT ORDERABLES - DEVICE Final Result Performing Organization Address [facility] Co de Phone Number [facility] [address] [employer]. [facility] [address] [place], [place] [id number] * POCT glucose (01/26/2025 5:50 AM CDT) Glucose, POC 81 70 - 199 mg/dL Comment: Interpretive Data Glucose is assumed to be non-fasting. Fasting Glucose reference ranges are: 0 - 150 years: 70 mg/dL - 99 mg/dL Current interpretive data was last revised on 2013. POC Device Number [id number] 1 HERBER MARCANO Blood 01/26/2025 5:50 AM CDT 01/26/2025 5:50 AM CDT Devang Henning MD LAB POCT ORDERABLES - DEVICE Final Result Performing Organization Address [facility] de Phone Number [facility] [address] [facility] [address] [place], [place] [phone] * POCT glucose (01/26/2025 1:53 AM CDT) Glucose, POC 144 70 - 199 mg/dL Comment: Interpretive Data Glucose is assumed to be non-fasting. Fasting Glucose reference ranges are: 0 - 150 years: 70 mg/dL - 99 mg/dL Current interpretive data was last revised on 2013. POC Device Number [id number] 1 HERBER MARCANO Blood 01/26/2025 1:53 AM CDT 01/26/2025 1:53 AM CDT Devang Henning MD LAB POCT ORDERABLES - DEVICE Final Result Performing Organization Address [facility] de Phone Number [facility] [address] [facility] [address] [place], [place] [phone] * POCT glucose (01/25/2025 9:55 PM CDT) Glucose, POC 172 70 - 199 mg/dL Comment: Interpretive Data Glucose is assumed to be non-fasting. Fasting Glucose reference ranges are: 0 - 150 years: 70 mg/dL - 99 mg/dL Current interpretive data was last revised on 2013. POC Device Number [id number] 1 HERBER MARCANO Blood 01/25/2025 9:55 PM CDT 01/25/2025 9:55 PM CDT Devang Henning MD LAB POCT ORDERABLES - DEVICE Final Result Performing Organization Address [facility] Phone Number [facility] [address] [facility] [place] [address] * POCT glucose (01/25/2025 5:42 PM CDT) Glucose, POC 110 70 - 199 mg/dL Comment: Interpretive Data Glucose is assumed to be non-fasting. Fasting Glucose reference ranges are: 0 - 150 years: 70 mg/dL - 99 mg/dL Current interpretive data was last revised on 2013. POC Device Number [id number] 1 HERBER MARCANO Blood 01/25/2025 5:42 PM CDT 01/25/2025 5:42 PM CDT Devang Henning MD LAB POCT ORDERABLES - DEVICE Final Result Performing Organization Address [facility] Phone Number HERBER [facility] [address] [place] [address] * POCT glucose (01/25/2025 12:57 PM CDT) Glucose, POC 81 70 - 199 mg/dL Comment: Interpretive Data Glucose is assumed to be non-fasting. Fasting Glucose reference ranges are: 0 - 150 years: 70 mg/dL - 99 mg/dL Current interpretive data was last revised on 2013. POC Device Number [id number] 1 HERBER MARCANO Blood 01/25/2025 12:5 7 PM CDT 01/25/2025 12:57 PM CDT Devang Henning MD LAB POCT ORDERABLES - DEVICE Final Result Performing Organization Address [facility] de Phone Number HERBER [facility] [address] [facility]. [facility] [place] [address] * (ABNORMAL) POCT glucose (01/25/2025 12:39 PM CDT) Glucose, POC 64(L) 70 - 199 mg/dL Comment: Interpretive Data Glucose is assumed to be non-fasting. Fasting Glucose reference ranges are: 0 - 150 years: 70 mg/dL - 99 mg/dL Current interpretive data was last revised on 2013. POC Device Number [id number] [facility] Glucose comment 1 RN/MD Notified [facility] Blood 01/25/2025 12:3 9 PM CDT 01/25/2025 12:39 PM CDT Devang Henning MD LAB POCT ORDERABLES - DEVICE Final Result Performing Organization Address [facility] Phone Number [facility] [phone] [facility] [place] [address] * POCT glucose (01/25/2025 10:43 AM CDT) Glucose, POC 84 70 - 199 mg/dL Comment: Interpretive Data Glucose is assumed to be non-fasting. Fasting Glucose reference ranges are: 0 - 150 years: 70 mg/dL - 99 mg/dL Current interpretive data was last revised on 2013. POC Device Number [id number] 3 HERBER JIMENEZWCH Blood 01/25/2025 10:4 3 AM CDT 01/25/2025 10:43 AM CDT Devang Henning MD LAB POCT ORDERABLES - DEVICE Final Result Performing Organization Address [facility] Co de Phone Number [facility] [address] [facility]. [facility] [place] [address] * POCT glucose (01/25/2025 9:08 AM CDT) Glucose, POC 90 70 - 199 mg/dL Comment: Interpretive Data Glucose is assumed to be non-fasting. Fasting Glucose reference ranges are: 0 - 150 years: 70 mg/dL - 99 mg/dL Current interpretive data was last revised on 2013. POC Device Number [id number] 3 HERBER MARCANO Blood 01/25/2025 9:08 AM CDT 01/25/2025 9:08 AM CDT Devang Henning MD LAB POCT ORDERABLES - DEVICE Final Result Performing Organization Address [facility] de Phone Number HERBER [facility] [address] [facility] [address] [place], [place] [phone] * POCT glucose (01/25/2025 7:51 AM CDT) Glucose, POC 99 70 - 199 mg/dL Comment: Interpretive Data Glucose is assumed to be non-fasting. Fasting Glucose reference ranges are: 0 - 150 years: 70 mg/dL - 99 mg/dL Current interpretive data was last revised on 2013. POC Device Number [id number] 3 HERBER MARCANO Blood 01/25/2025 7:51 AM CDT 01/25/2025 7:51 AM CDT Devang Henning MD LAB POCT ORDERABLES - DEVICE Final Result Performing Organization Address [facility] de Phone Number [facility] [address] [facility] [address] [place], [place] [phone] * POCT glucose (01/25/2025 5:21 AM CDT) Glucose, POC 129 70 - 199 mg/dL Comment: Interpretive Data Glucose is assumed to be non-fasting. Fasting Glucose reference ranges are: 0 - 150 years: 70 mg/dL - 99 mg/dL Current interpretive data was last revised on 2013. POC Device Number [id number] 3 [facility]BER [facility] Blood 01/25/2025 5:21 AM CDT 01/25/2025 5:21 AM CDT us Devang Henning MD LAB POCT ORDERABLES - DEVICE Final Result Performing Organization Address [facility] Co de Phone Number [facility] [address] [facility] [employer] [place], [place] [phone] * (ABNORMAL) eGFR (01/25/2025 5:18 AM CDT) [...] ORDERABLES Final Res ult Performing Organization Address [facility]/ZIP Co de Phone Number [facility] [phone] [facility] [place] [address] * Magnesium (01/25/2025 5:18 AM CDT) Magnesium 2.4 1.4 - 2.5 mg/dL Comment: Reference Data. Reference values for Labor and Delivery patients: < or = 0.7 mg/dL to > or = 7.3 mg/dL Current reference data last reviewd on 01/16/2015. Blood 01/25/2025 5:18 AM CDT 01/25/2025 5:54 AM CDT Devang Henning MD LAB BLOOD ORDERABLES Final Result [facility] [address] [facility]. [place] [address] * (ABNORMAL) Renal function panel (01/25/2025 5:18 AM CDT) Sodium 137 135 - 145 mmol/L Potassium, pl 5.5(H) 3.3 - 4.9 mmol/L [facility] Chloride 98 97 - 110 mmol/L [facility] CO2 27 22 - 32 mmol/L [facility] Anion gap 12 2 - 15 mmol/L [facility] BUN 50(H) 6 - 25 mg/dL [facility] Creatinine 5.75(H) 0.60 - 1.10 mg/dL [facility] Glucose 112 70 - 199 mg/dL [facility] Comment: Interpretive Data Fasting glucose >/= 126 [...] 2022. Calcium 9.3 8.5 - 10.3 mg/dL [facility] Phosphorus, pl 4.5 2.3 - 4.5 mg/dL [facility] Albumin 4.0 3.5 - 5.0 g/dL [facility] Blood 01/25/2025 5:18 AM CDT 01/25/2025 5:54 AM CDT Jeffrey Osorio MD PhD LAB BLOOD ORDERABLES Final Res ult Performing Organization Address [facility] Co de Phone Number [facility] [address] [facility] [place] [address] * POCT glucose (01/25/2025 2:02 AM CDT) Glucose, POC 181 70 - 199 mg/dL Comment: Interpretive Data Glucose is assumed to be non-fasting. Fasting Glucose reference ranges are: 0 - 150 years: 70 mg/dL - 99 mg/dL Current interpretive data was last revised on 2013. POC Device Number [id number] 3 HERBER MARCANO Blood 01/25/2025 2:02 AM CDT 01/25/2025 2:02 AM CDT Devang Henning MD LAB POCT ORDERABLES - DEVICE Final Result Performing Organization Address [facility] Phone Number [facility] J[facility]ENEZ[facility] [address] [facility] [place] [address] * (ABNORMAL) POCT glucose (01/24/2025 10:05 PM CDT) Glucose, POC 243(H) 70 - 199 mg/dL Comment: Interpretive Data Glucose is assumed to be non-fasting. Fasting Glucose reference ranges are: 0 - 150 years: 70 mg/dL - 99 mg/dL Current interpretive data was last revised on 2013. POC Device Number [id number] 3 HERBER MARCANO Blood 01/24/2025 10:0 5 PM CDT 01/24/2025 10:05 PM CDT Devang Henning MD LAB POCT ORDERABLES - DEVICE Final Result Performing Organization Address [facility] Co de Phone Number [facility] [phone] [employer]. [facility] [place] [address] * POCT glucose (01/24/2025 6:13 PM CDT) Glucose, POC 134 70 - 199 mg/dL Comment: Interpretive Data Glucose is assumed to be non-fasting. Fasting Glucose reference ranges are: 0 - 150 years: 70 mg/dL - 99 mg/dL Current interpretive data was last revised on 2013. POC Device Number [id number] 3 HERBER MARCANO Blood 01/24/2025 6:13 PM CDT 01/24/2025 6:13 PM CDT Devang Henning MD LAB POCT ORDERABLES - DEVICE Final Result Performing Organization Address [facility] de Phone Number [facility] [address] [facility] [employer] [place] [address] * POCT glucose (01/24/2025 12:59 PM CDT) Glucose, POC 110 70 - 199 mg/dL Comment: Interpretive Data Glucose is assumed to be non-fasting. Fasting Glucose reference ranges are: 0 - 150 years: 70 mg/dL - 99 mg/dL Current interpretive data was last revised on 2013. POC Device Number [id number] 3 HERBER MARCANO Blood 01/24/2025 12:5 9 PM CDT 01/24/2025 12:59 PM CDT Devang Henning MD LAB POCT ORDERABLES - DEVICE Final Result Performing Organization Address [facility] de Phone Number [facility] [address] [facility]. [facility] [place] [address] * POCT glucose (01/24/2025 9:32 AM CDT) Glucose, POC 111 70 - 199 mg/dL Comment: Interpretive Data Glucose is assumed to be non-fasting. Fasting Glucose reference ranges are: 0 - 150 years: 70 mg/dL - 99 mg/dL Current interpretive data was last revised on 2013. POC Device Number [id number] 3 BERLINLULY BARBARASIGRID Blood 01/24/2025 9:32 AM CDT 01/24/2025 9:32 AM CDT Devang Henning MD LAB POCT ORDERABLES - DEVICE Final Result Performing Organization Address [facility] Co de Phone Number [facility] [phone] [employer] [place] [address] * (ABNORMAL) eGFR (01/24/2025 5:56 AM CDT) [...] BLOOD ORDERABLES Final Result Performing Organization Address City/[facility]/ZIP Co de Phone Number [facility] [phone] [employer] [place] [address] * Magnesium (01/24/2025 5:56 AM CDT) Magnesium 2.0 1.4 - 2.5 mg/dL Comment: Reference Data. Reference values for Labor and Delivery patients: < or = 0.7 mg/dL to > or = 7.3 mg/dL Current reference data last reviewd on 01/16/2015. Blood 01/24/2025 5:56 AM CDT 01/24/2025 6:25 AM CDT Devang Henning MD LAB BLOOD ORDERABLES Final Result [facility] [address] [facility]. [place] [address] * (ABNORMAL) Renal function panel (01/24/2025 5:56 AM CDT) Pathologist [facility] Sodium 134(L) 135 - 145 mmol/L Potassium, pl 4.8 3.3 - 4.9 mmol/L [place] [facility] Chloride 96(L) 97 - 110 mmol/L [facility] CO2 30 22 - 32 mmol/L [facility] Anion gap 8 2 - 15 mmol/L [facility] BUN 34(H) 6 - 25 mg/dL [facility] Creatinine 4.40(H) 0.60 - 1.10 mg/dL [facility] Glucose 115 70 - 199 mg/dL [facility] Comment: Interpretive Data Fasting glucose >/= [...] 2022. Calcium 9.1 8.5 - 10.3 mg/dL [facility] Phosphorus, pl 3.8 2.3 - 4.5 mg/dL CERNER W Albumin 3.7 3.5 - 5.0 g/dL [facility] Blood 01/24/2025 5:56 AM CDT 01/24/2025 6:25 AM CDT Devang Henning MD LAB BLOOD ORDERABLES Final Result Performing Organization Address [facility] de Phone Number HERBER JIMENEZCH [address] [facility] [place] [address] * POCT glucose (01/24/2025 5:43 AM CDT) Glucose, POC 115 70 - 199 mg/dL Comment: Interpretive Data Glucose is assumed to be non-fasting. Fasting Glucose reference ranges are: 0 - 150 years: 70 mg/dL - 99 mg/dL Current interpretive data was last revised on 2013. POC Device Number [id number] 3 [facility] Blood 01/24/2025 5:43 AM CDT 01/24/2025 5:43 AM CDT Devang Henning MD LAB POCT ORDERABLES - DEVICE Final Result Performing Organization Address [facility] de Phone Number HERBER WCH [address] [facility] [place] [address] * POCT glucose (01/24/2025 1:53 AM CDT) Glucose, POC 120 70 - 199 mg/dL Comment: Interpretive Data Glucose is assumed to be non-fasting. Fasting Glucose reference ranges are: 0 - 150 years: 70 mg/dL - 99 mg/dL Current interpretive data was last revised on 2013. POC Device Number [id number] 3 HERBER REINA Blood 01/24/2025 1:53 AM CDT 01/24/2025 1:53 AM CDT Devang Henning MD LAB POCT ORDERABLES - DEVICE Final Result Performing Organization Address [facility] de Phone Number HERBER BJWCH [address] [facility] [place] [address] * POCT glucose (01/23/2025 9:51 PM CDT) [facility] Glucose, POC 134 70 - 199 mg/dL Comment: Interpretive Data Glucose is assumed to be non-fasting. Fasting Glucose reference ranges are: 0 - 150 years: 70 mg/dL - 99 mg/dL Current interpretive data was last revised on 2013. POC Device Number [id number] 3 BERLINLULY BJWCH Blood 01/23/2025 9:51 PM CDT 01/23/2025 9:51 PM CDT Dveang Henning MD LAB POCT ORDERABLES - DEVICE Final Result Performing Organization Address [facility] Phone Number HERBER BJWCH [address] [facility] [place] [address] * US Abdomen Complete (01/23/2025 9:18 PM [...] agrees with it. Electronically signed by: Femi P. Parag, M.D. Devang Henning MD IMG US PROCEDURES Fi nal Result * (ABNORMAL) POCT glucose (01/23/2025 4:58 PM CDT) Glucose, POC 219(H) 70 - 199 mg/dL Comment: Interpretive Data Glucose is assumed to be non-fasting. Fasting Glucose reference ranges are: 0 - 150 years: 70 mg/dL - 99 mg/dL Current interpretive data was last revised on 2013. POC Device Number [id number] 3 HERBER JIMENEZWCYDNEY Blood 01/23/2025 4:58 PM CDT 01/23/2025 4:58 PM CDT Devang Henning MD LAB POCT ORDERABLES - DEVICE Final Result Performing Organization Address [facility] de Phone Number [facility] [address] [employer] [place] [address] * POCT glucose (01/23/2025 12:15 PM CDT) Glucose, POC 107 70 - 199 mg/dL Comment: Interpretive Data Glucose is assumed to be non-fasting. Fasting Glucose reference ranges are: 0 - 150 years: 70 mg/dL - 99 mg/dL Current interpretive data was last revised on 2013. POC Device Number [id number] 3 HERBER JIMENEZWCH Blood 01/23/2025 12:1 5 PM CDT 01/23/2025 12:15 PM CDT Devang Henning MD LAB POCT ORDERABLES - DEVICE Final Result Performing Organization Address [facility] Co de Phone Number [facility] [employer] [address] [employer] [place] [address] * (ABNORMAL) eGFR (01/23/2025 6:36 AM CDT) [...] PhD LAB BLOOD ORDERABLES Final Res ult [facility] [address] [facility]. [place] [address] * (ABNORMAL) Renal function panel (01/23/2025 6:36 AM CDT) Sodium 136 135 - 145 mmol/L Potassium, pl 6.1(H) 3.3 - 4.9 mmol/L [facility] Chloride 97 97 - 110 mmol/L [facility] CO[facility] 27 22 - 32 mmol/L CERNER W Anion gap 12 2 - 15 mmol/L [facility] BUN 76(H) 6 - 25 mg/dL [facility] Creatinine 7.40(H) 0.60 - 1.10 mg/dL [facility]ER [facility] Glucose 190 70 - 199 mg/dL [facility] Comment: Interpretive Data Fasting glucose >/= [...] Albumin 3.7 3.5 - 5.0 g/dL CERNER W Blood 01/23/2025 6:36 AM CDT 01/23/2025 6:41 AM CDT Jeffrey Osorio MD PhD LAB BLOOD ORDERABLES Final Res ult Performing Organization Address [facility] Co de Phone Number [facility] [address] [facility] [employer] [place], [place] [id number] * (ABNORMAL) POCT glucose (01/23/2025 6:17 AM CDT) Glucose, POC 217(H) 70 - 199 mg/dL Comment: Interpretive Data Glucose is assumed to be non-fasting. Fasting Glucose reference ranges are: 0 - 150 years: 70 mg/dL - 99 mg/dL Current interpretive data was last revised on 2013. POC Device Number [id number] 1 [facility] Blood 01/23/2025 6:17 AM CDT 01/23/2025 6:17 AM CDT Devang Henning MD LAB POCT ORDERABLES - DEVICE Final Result Performing Organization Address [facility] Co de Phone Number [facility] [address] [facility] [employer] [place], [place] [phone] * (ABNORMAL) POCT glucose (01/23/2025 2:08 AM CDT) Glucose, POC 229(H) 70 - 199 mg/dL Comment: Interpretive Data Glucose is assumed to be non-fasting. Fasting Glucose reference ranges are: 0 - 150 years: 70 mg/dL - 99 mg/dL Current interpretive data was last revised on 2013. POC Device Number [id number] 3 HERBER MARCANO Blood 01/23/2025 2:08 AM CDT 01/23/2025 2:08 AM CDT Jeffrey Osorio MD PhD LAB POCT ORDERABLES - DEVICE F inal Result Performing Organization Address [facility] de Phone Number [facility] [address] [facility] [place] [address] * POCT glucose (01/22/2025 11:38 PM CDT) Glucose, POC 195 70 - 199 mg/dL Comment: Interpretive Data Glucose is assumed to be non-fasting. Fasting Glucose reference ranges are: 0 - 150 years: 70 mg/dL - 99 mg/dL Current interpretive data was last revised on 2013. POC Device Number [id number] 3 HERBER MARCANO Blood 01/22/2025 11:3 8 PM CDT 01/22/2025 11:38 PM CDT Jeffrey Osorio MD PhD LAB POCT ORDERABLES - DEVICE F inal Result Performing Organization Address [facility] de Phone Number [facility] [address] [facility] [address] [place], [place] [phone] * POCT glucose (01/22/2025 8:14 PM CDT) Glucose, POC 125 70 - 199 mg/dL Comment: Interpretive Data Glucose is assumed to be non-fasting. Fasting Glucose reference ranges are: 0 - 150 years: 70 mg/dL - 99 mg/dL Current interpretive data was last revised on 2013. POC Device Number [id number] 3 HERBER REINACH Blood 01/22/2025 8:14 PM CDT 01/22/2025 8:14 PM CDT us Jeffrey Osorio MD PhD LAB POCT ORDERABLES - DEVICE F inal Result Performing Organization Address [facility] Co de Phone Number HERBER JIMENEZCH [address] [facility]. [facility] [place] [address] * POCT glucose (01/22/2025 5:25 PM CDT) Glucose, POC 112 70 - 199 mg/dL Comment: Interpretive Data Glucose is assumed to be non-fasting. Fasting Glucose reference ranges are: 0 - 150 years: 70 mg/dL - 99 mg/dL Current interpretive data was last revised on 2013. POC Device Number [id number] 4 HERBER JIMENEZWCH Blood 01/22/2025 5:25 PM CDT 01/22/2025 5:25 PM CDT us Jeffrey Osorio MD PhD LAB POCT ORDERABLES - DEVICE F inal Result Performing Organization Address [facility] de Phone Number HERBER JIMENEZCH [address] [facility] [address] * POCT glucose (01/22/2025 2:24 PM CDT) Glucose, POC 129 70 - 199 mg/dL Comment: Interpretive Data Glucose is assumed to be non-fasting. Fasting Glucose reference ranges are: 0 - 150 years: 70 mg/dL - 99 mg/dL Current interpretive data was last revised on 2013. POC Device Number [id number] 4 BERLINNER BARBARAWCH Blood 01/22/2025 2:24 PM CDT 01/22/2025 2:24 PM CDT us Jeffrey Osorio MD PhD LAB POCT ORDERABLES - DEVICE F inal Result Performing Organization Address [facility] Co de Phone Number HERBER JIMENEZCH [address] [facility]. [facility] [place] [address] * POCT glucose (01/22/2025 10:26 AM CDT) Glucose, POC 133 70 - 199 mg/dL Comment: Interpretive Data Glucose is assumed to be non-fasting. Fasting Glucose reference ranges are: 0 - 150 years: 70 mg/dL - 99 mg/dL Current interpretive data was last revised on 2013. POC Device Number [id number] 3 HERBER MARCANO Blood 01/22/2025 10:2 6 AM CDT 01/22/2025 10:26 AM CDT Jeffrey Osoiro MD PhD LAB POCT ORDERABLES - DEVICE F inal Result Performing Organization Address [facility] Co de Phone Number [facility] [address] [facility] [place] [address] * POCT glucose (01/22/2025 6:07 AM CDT) Glucose, POC 109 70 - 199 mg/dL Comment: Interpretive Data Glucose is assumed to be non-fasting. Fasting Glucose reference ranges are: 0 - 150 years: 70 mg/dL - 99 mg/dL Current interpretive data was last revised on 2013. POC Device Number [id number] 4 HERBER MARCANO Blood 01/22/2025 6:07 AM CDT 01/22/2025 6:07 AM CDT Jeffrey Osorio MD PhD LAB POCT ORDERABLES - DEVICE F inal Result Performing Organization Address [facility]/ZIP Co de Phone Number [facility] [address] [facility] [place] [address] * POCT glucose (01/22/2025 2:15 AM CDT) Glucose, POC 190 70 - 199 mg/dL Comment: Interpretive Data Glucose is assumed to be non-fasting. Fasting Glucose reference ranges are: 0 - 150 years: 70 mg/dL - 99 mg/dL Current interpretive data was last revised on 2013. POC Device Number [id number] 3 CERNER BARBARAWCH Blood 01/22/2025 2:15 AM CDT 01/22/2025 2:15 AM CDT Jeffrey Osorio MD PhD LAB POCT ORDERABLES - DEVICE F inal Result Performing Organization Address [facility] Phone Number [facility] [address] [facility] [place] [address] * (ABNORMAL) POCT glucose (01/21/2025 10:28 PM CDT) Glucose, POC 340(H) 70 - 199 mg/dL Comment: Interpretive Data Glucose is assumed to be non-fasting. Fasting Glucose reference ranges are: 0 - 150 years: 70 mg/dL - 99 mg/dL Current interpretive data was last revised on 2013. POC Device Number [id number] 4 CERNER BARBARAWCH Blood 01/21/2025 10:2 8 PM CDT 01/21/2025 10:28 PM CDT Jeffrey Osorio MD PhD LAB POCT ORDERABLES - DEVICE F inal Result Performing Organization Address [facility] Phone Number [facility] [address] [facility] [place] [address] * POCT glucose (01/21/2025 5:23 PM CDT) Glucose, POC 195 70 - 199 mg/dL Comment: Interpretive Data Glucose is assumed to be non-fasting. Fasting Glucose reference ranges are: 0 - 150 years: 70 mg/dL - 99 mg/dL Current interpretive data was last revised on 2013. POC Device Number [id number] 4 CERNER BJWCH Blood 01/21/2025 5:23 PM CDT 01/21/2025 5:23 PM CDT us Jeffrey Osorio MD PhD LAB POCT ORDERABLES - DEVICE F inal Result Performing Organization Address [facility] Phone Number [facility] [address] [facility]. [facility] [place] [address] * POCT glucose (01/21/2025 12:29 PM CDT) Glucose, POC 194 70 - 199 mg/dL Comment: Interpretive Data Glucose is assumed to be non-fasting. Fasting Glucose reference ranges are: 0 - 150 years: 70 mg/dL - 99 mg/dL Current interpretive data was last revised on 2013. POC Device Number [id number] 3 HERBER REINAJag.ag Blood 01/21/2025 12:2 9 PM CDT 01/21/2025 12:29 PM CDT us Jeffrey Osorio MD PhD LAB POCT ORDERABLES - DEVICE F inal Result Performing Organization Address [facility] de Phone Number [facility] [address] [facility]. [facility] [place] [address] * POCT glucose (01/21/2025 8:02 AM CDT) Glucose, POC 160 70 - 199 mg/dL Comment: Interpretive Data Glucose is assumed to be non-fasting. Fasting Glucose reference ranges are: 0 - 150 years: 70 mg/dL - 99 mg/dL Current interpretive data was last revised on 2013. POC Device Number [id number] 3 HERBER JIMENEZSpark CRMCYDNEY Blood 01/21/2025 8:02 AM CDT 01/21/2025 8:02 AM CDT us Jeffrey Osorio MD PhD LAB POCT ORDERABLES - DEVICE F inal Result Performing Organization Address [facility] Co de Phone Number [facility] BJWCH [address] [facility]. [facility] [place] [address] * POCT glucose (01/21/2025 6:05 AM CDT) Glucose, POC 184 70 - 199 mg/dL Comment: Interpretive Data Glucose is assumed to be non-fasting. Fasting Glucose reference ranges are: 0 - 150 years: 70 mg/dL - 99 mg/dL Current interpretive data was last revised on 2013. POC Device Number [id number] 3 HERBER MARCANO Blood 01/21/2025 6:05 AM CDT 01/21/2025 6:05 AM CDT Jeffrey Osorio MD PhD LAB POCT ORDERABLES - DEVICE F inal Result Performing Organization Address [facility] de Phone Number [facility] [address] [facility] [address] [place], [place] [id number] * POCT glucose (01/21/2025 1:50 AM CDT) Glucose, POC 78 70 - 199 mg/dL Comment: Interpretive Data Glucose is assumed to be non-fasting. Fasting Glucose reference ranges are: 0 - 150 years: 70 mg/dL - 99 mg/dL Current interpretive data was last revised on 2013. POC Device Number [id number] 3 HERBER MARCANO Blood 01/21/2025 1:50 AM CDT 01/21/2025 1:50 AM CDT Jeffrey Osorio MD PhD LAB POCT ORDERABLES - DEVICE F inal Result Performing Organization Address [facility] Phone Number [facility] [address] [facility] [address] [place], [place] [phone] * POCT glucose (01/20/2025 9:49 PM CDT) Glucose, POC 138 70 - 199 mg/dL Comment: Interpretive Data Glucose is assumed to be non-fasting. Fasting Glucose reference ranges are: 0 - 150 years: 70 mg/dL - 99 mg/dL Current interpretive data was last revised on 2013. POC Device Number [id number] 3 HERBER MARCANO Blood 01/20/2025 9:49 PM CDT 01/20/2025 9:49 PM CDT us Jeffrey Osorio MD PhD LAB POCT ORDERABLES - DEVICE F inal Result Performing Organization Address [facility] Phone Number HERBER REINACH [address] [facility] [place] [address] * POCT glucose (01/20/2025 4:28 PM CDT) Glucose, POC 129 70 - 199 mg/dL Comment: Interpretive Data Glucose is assumed to be non-fasting. Fasting Glucose reference ranges are: 0 - 150 years: 70 mg/dL - 99 mg/dL Current interpretive data was last revised on 2013. POC Device Number [id number] 3 HERBER MARCANO Blood 01/20/2025 4:28 PM CDT 01/20/2025 4:28 PM CDT us Jeffrey Osorio MD PhD LAB POCT ORDERABLES - DEVICE F inal Result Performing Organization Address [facility] Phone Number HERBER JIMENEZWCH [address] [facility] [place] [address] * POCT glucose (01/20/2025 1:07 PM CDT) Glucose, POC 102 70 - 199 mg/dL Comment: Interpretive Data Glucose is assumed to be non-fasting. Fasting Glucose reference ranges are: 0 - 150 years: 70 mg/dL - 99 mg/dL Current interpretive data was last revised on 2013. POC Device Number [id number] 3 HERBER MARCANO Blood 01/20/2025 1:07 PM CDT 01/20/2025 1:07 PM CDT us Jeffrey Osorio MD PhD LAB POCT ORDERABLES - DEVICE F inal Result Performing Organization Address [facility]/ZIP Co de Phone Number HERBER REINACH [address] [employer]. [place] [address] * (ABNORMAL) eGFR (01/20/2025 10:23 AM CDT) [...] LAB BLOOD ORDERABLES Final Res ult HERBER MARCANO [address] [employer]. [place] [address] * Differential, auto (01/20/2025 10:23 AM CDT) Neutrophil abs 2.98 1.50 - 6.50 K/cumm Imm gran abs 0.01 0.00 - 0.10 K/cumm [facility] Lymphocyte abs 1.16 0.80 - 3.30 K/cumm [facility] Monocyte abs 0.34 0.20 - 0.80 K/cumm BANNERNER [facility] Eosinophil abs 0.12 0.00 - 0.50 K/cumm HERBER MARCANO Basophil abs 0.00 0.00 - 0.10 K/cumm HERBER MARCANO Neutrophil pct 64.6 % [facility] Comment: Interpretive Data Percent cell count reference ranges are not reported, since discordance with absolute values may lead to misinterpretation of CBC data. Current Interpretive Data was last revised on 2017. Imm gran pct 0.2 % HERBER MARCANO Comment: Interpretive Data Percent cell count reference ranges are not reported, since discordance with absolute values may lead to misinterpretation of CBC data. Current Interpretive Data was last revised on 2017. Lymphocyte pct 25.2 % HERBER MARCANO Comment: Interpretive Data Percent cell count reference ranges are not reported, since discordance with absolute values may lead to misinterpretation of CBC data. Current Interpretive Data was last revised on 2017. Monocyte pct 7.4 % HERBER REINA Comment: Interpretive Data Percent cell count reference ranges are not reported, since discordance with absolute values may lead to misinterpretation of CBC data. Current Interpretive Data was last revised on 2017. Eosinophil pct 2.6 % HERBER REINA Comment: Interpretive Data Percent cell count reference ranges are not reported, since discordance with absolute values may lead to misinterpretation of CBC data. Current Interpretive Data was last revised on 2017. Basophil pct 0.0 % [facility] Comment: Interpretive Data Percent cell count reference ranges are not reported, since discordance with absolute values may lead to misinterpretation of CBC data. Current Interpretive Data was last revised on 2017. Blood 01/20/2025 10:2 3 AM CDT 01/20/2025 10:26 AM CDT us Jeffrey Osorio MD PhD LAB BLOOD ORDERABLES Final Res ult HERBER JIMENEZWCH [address] [facility]. [place] [address] * (ABNORMAL) CBC with auto differential (01/20/2025 10:23 AM CDT) WBC 4.61 3.80 - 9.90 K/cumm Hgb 8.2(L) 11.9 - 15.5 g/dL [facility] Hct 26.9(L) 35.6 - 45.5 % [facility] Plt 309 150 - 400 K/cumm [facility] MPV 10.8 9.1 - 12.3 fL [facility] RBC 2.89(L) 3.90 - 5.20 M/cumm [facility] MCV 93.1 81.3 - 96.4 fL [facility] MCH 28.4 27.1 - 33.3 pg [facility] MCHC 30.5(L) 32.3 - 35.7 g/dL [facility] RDW CV 15.2(H) 11.1 - 14.9 % [facility] RDW SD 51.6(H) 35.7 - 48.1 fL [facility] NRBC abs 0.00 0.00 - 0.01 K/cumm [facility] Blood 01/20/2025 10:2 3 AM CDT 01/20/2025 10:26 AM CDT us Jeffrey Osorio MD PhD LAB BLOOD ORDERABLES Final Res ult [facility] [address] [facility]. [place] [address] * (ABNORMAL) Renal function panel (01/20/2025 10:23 AM CDT) [facility] Sodium 137 135 - 145 mmol/L Potassium, pl 5.0(H) 3.3 - 4.9 mmol/L [facility] Chloride 100 97 - 110 mmol/L [facility] CO2 28 22 - 32 mmol/L [facility] Anion gap 9 2 - 15 mmol/L [facility] BUN 42(H) 6 - 25 mg/dL [facility] Creatinine 4.95(H) 0.60 - 1.10 mg/dL [facility] Glucose 110 70 - 199 mg/dL [facility] Comment: Interpretive Data Fasting glucose >/= [...] Calcium 8.2(L) 8.5 - 10.3 mg/dL [facility] Phosphorus, pl 3.7 2.3 - 4.5 mg/dL CERNER [facility] Albumin 3.6 3.5 - 5.0 g/dL CERNER [facility] Blood 01/20/2025 10:2 3 AM CDT 01/20/2025 10:26 AM CDT Jeffrey Osorio MD PhD LAB BLOOD ORDERABLES Final Res ult Performing Organization Address [facility] Co de Phone Number [facility] [address] [employer] [place] [address] * POCT glucose (01/20/2025 9:51 AM CDT) [facility] Glucose, POC 111 70 - 199 mg/dL Comment: Interpretive Data Glucose is assumed to be non-fasting. Fasting Glucose reference ranges are: 0 - 150 years: 70 mg/dL - 99 mg/dL Current interpretive data was last revised on 2013. POC Device Number [id number] 3 [facility] Blood 01/20/2025 9:51 AM CDT 01/20/2025 9:51 AM CDT us Jeffrey Osorio MD PhD LAB POCT ORDERABLES - DEVICE F inal Result Performing Organization Address [facility] Co de Phone Number [facility] [address] [facility] [employer] [place], [place] [id number] * POCT glucose (01/20/2025 8:45 AM CDT) Glucose, POC 115 70 - 199 mg/dL Comment: Interpretive Data Glucose is assumed to be non-fasting. Fasting Glucose reference ranges are: 0 - 150 years: 70 mg/dL - 99 mg/dL Current interpretive data was last revised on 2013. POC Device Number [id number] 3 HERBER MARCANO Blood 01/20/2025 8:45 AM CDT 01/20/2025 8:45 AM CDT Jeffrey Osorio MD PhD LAB POCT ORDERABLES - DEVICE F inal Result Performing Organization Address [facility] de Phone Number [facility] [address] [address] [employer] [facility] [place] [address] * (ABNORMAL) POCT glucose (01/20/2025 8:02 AM CDT) Glucose, POC 67(L) 70 - 199 mg/dL Comment: Interpretive Data Glucose is assumed to be non-fasting. Fasting Glucose reference ranges are: 0 - 150 years: 70 mg/dL - 99 mg/dL Current interpretive data was last revised on 2013. POC Device Number [id number] 3 HERBER MARCANO Blood 01/20/2025 8:02 AM CDT 01/20/2025 8:02 AM CDT Jeffrey Osorio MD PhD LAB POCT ORDERABLES - DEVICE F inal Result Performing Organization Address [facility] de Phone Number [facility] [address] [facility] Hospital[facility] Power[facility] [place] [address] * POCT glucose (01/20/2025 5:49 AM CDT) Glucose, POC 122 70 - 199 mg/dL Comment: Interpretive Data Glucose is assumed to be non-fasting. Fasting Glucose reference ranges are: 0 - 150 years: 70 mg/dL - 99 mg/dL Current interpretive data was last revised on 2013. POC Device Number [id number] 3 HERBER MARCANO Blood 01/20/2025 5:49 AM CDT 01/20/2025 5:49 AM CDT Jeffrey Osorio MD PhD LAB POCT ORDERABLES - DEVICE F inal Result Performing Organization Address [facility] Phone Number HERBER JIMENEZCH [address] [facility] [place] [address] * POCT glucose (01/20/2025 1:57 AM CDT) Glucose, POC 127 70 - 199 mg/dL Comment: Interpretive Data Glucose is assumed to be non-fasting. Fasting Glucose reference ranges are: 0 - 150 years: 70 mg/dL - 99 mg/dL Current interpretive data was last revised on 2013. POC Device Number [id number] 4 HERBER MARCANO Blood 01/20/2025 1:57 AM CDT 01/20/2025 1:57 AM CDT Jeffrey Osorio MD PhD LAB POCT ORDERABLES - DEVICE F inal Result Performing Organization Address [facility] Phone Number HERBER JIMENEZWCH [address] [place] [address] * (ABNORMAL) POCT glucose (01/19/2025 10:01 PM CDT) Glucose, POC 243(H) 70 - 199 mg/dL Comment: Interpretive Data Glucose is assumed to be non-fasting. Fasting Glucose reference ranges are: 0 - 150 years: 70 mg/dL - 99 mg/dL Current interpretive data was last revised on 2013. POC Device Number [id number] HERBER JIMENEZWCH Glucose comment 1 RN/MD Notified HERBER MARCANO Blood 01/19/2025 10:0 1 PM CDT 01/19/2025 10:01 PM CDT Jeffrey Osorio MD PhD LAB POCT ORDERABLES - DEVICE F inal Result Performing Organization Address [facility] de Phone Number HERBER JIMENEZCH [address] [facility]. [facility] [place] [address] * POCT glucose (01/19/2025 6:01 PM CDT) Glucose, POC 98 70 - 199 mg/dL Comment: Interpretive Data Glucose is assumed to be non-fasting. Fasting Glucose reference ranges are: 0 - 150 years: 70 mg/dL - 99 mg/dL Current interpretive data was last revised on 2013. POC Device Number [id number] 4 HERBER REINAJag.ag Blood 01/19/2025 6:01 PM CDT 01/19/2025 6:01 PM CDT Jeffrey Osorio MD PhD LAB POCT ORDERABLES - DEVICE F inal Result Performing Organization Address [facility] de Phone Number [facility] [address] [facility]. [facility] [place] [address] * POCT glucose (01/19/2025 4:18 PM CDT) Glucose, POC 75 70 - 199 mg/dL Comment: Interpretive Data Glucose is assumed to be non-fasting. Fasting Glucose reference ranges are: 0 - 150 years: 70 mg/dL - 99 mg/dL Current interpretive data was last revised on 2013. POC Device Number [id number] 4 HERBER MARCANO Blood 01/19/2025 4:18 PM CDT 01/19/2025 4:18 PM CDT us Jeffrey Osorio MD PhD LAB POCT ORDERABLES - DEVICE F inal Result Performing Organization Address [facility] de Phone Number HERBER BJWCH [address] [facility]. [facility] [place] [address] * POCT glucose (01/19/2025 11:51 AM CDT) Glucose, POC 114 70 - 199 mg/dL Comment: Interpretive Data Glucose is assumed to be non-fasting. Fasting Glucose reference ranges are: 0 - 150 years: 70 mg/dL - 99 mg/dL Current interpretive data was last revised on 2013. POC Device Number [id number] 4 HERBER MARCANO Blood 01/19/2025 11:5 1 AM CDT 01/19/2025 11:51 AM CDT Jeffrey Osorio MD PhD LAB POCT ORDERABLES - DEVICE F inal Result Performing Organization Address [facility] de Phone Number [facility] [address] [facility] [address] [place], [place] [id number] * POCT glucose (01/19/2025 10:04 AM CDT) Glucose, POC 137 70 - 199 mg/dL Comment: Interpretive Data Glucose is assumed to be non-fasting. Fasting Glucose reference ranges are: 0 - 150 years: 70 mg/dL - 99 mg/dL Current interpretive data was last revised on 2013. POC Device Number [id number] 4 HERBER MARCANO Blood 01/19/2025 10:0 4 AM CDT 01/19/2025 10:04 AM CDT Jeffrey Osorio MD PhD LAB POCT ORDERABLES - DEVICE F inal Result Performing Organization Address [facility] Phone [facility] [address] [facility] [address] [place], [place] [phone] * POCT glucose (01/19/2025 6:33 AM CDT) Glucose, POC 71 70 - 199 mg/dL Comment: Interpretive Data Glucose is assumed to be non-fasting. Fasting Glucose reference ranges are: 0 - 150 years: 70 mg/dL - 99 mg/dL Current interpretive data was last revised on 2013. POC Device Number [id number] 3 HERBER MARCANO Blood 01/19/2025 6:33 AM CDT 01/19/2025 6:33 AM CDT us Jeffrey Osorio MD PhD LAB POCT ORDERABLES - DEVICE F inal Result Performing Organization Address [facility] Phone Number HERBER JIMENEZCH [address] [place] [address] * POCT glucose (01/19/2025 2:13 AM CDT) Glucose, POC 104 70 - 199 mg/dL Comment: Interpretive Data Glucose is assumed to be non-fasting. Fasting Glucose reference ranges are: 0 - 150 years: 70 mg/dL - 99 mg/dL Current interpretive data was last revised on 2013. POC Device Number [id number] 3 HERBER MARCANO Blood 01/19/2025 2:13 AM CDT 01/19/2025 2:13 AM CDT us Jeffrey Osorio MD PhD LAB POCT ORDERABLES - DEVICE F inal Result Performing Organization Address [facility] Phone Number HERBER JIMENEZCH [address] [facility] [place] [address] * POCT glucose (01/18/2025 9:50 PM CDT) Glucose, POC 97 70 - 199 mg/dL Comment: Interpretive Data Glucose is assumed to be non-fasting. Fasting Glucose reference ranges are: 0 - 150 years: 70 mg/dL - 99 mg/dL Current interpretive data was last revised on 2013. POC Device Number [id number] 3 HERBER MARCANO Blood 01/18/2025 9:50 PM CDT 01/18/2025 9:50 PM CDT us Jeffrey Osorio MD PhD LAB POCT ORDERABLES - DEVICE F inal Result Performing Organization Address [facility]/ZIP Co de Phone Number HERBER JIMENEZCH [address] [facility]. [facility] [address] [place], [place] [id number] * POCT glucose (01/18/2025 5:59 PM CDT) Glucose, POC 171 70 - 199 mg/dL Comment: Interpretive Data Glucose is assumed to be non-fasting. Fasting Glucose reference ranges are: 0 - 150 years: 70 mg/dL - 99 mg/dL Current interpretive data was last revised on 2013. POC Device Number [id number] 1 HERBER JIMENEZWCYDNEY Blood 01/18/2025 5:59 PM CDT 01/18/2025 5:59 PM CDT us Jeffrey Osorio MD PhD LAB POCT ORDERABLES - DEVICE F inal Result Performing Organization Address [facility] de Phone Number [facility] [address] [facility]. [facility] [address] [place], [place] [id number] * POCT glucose (01/18/2025 12:15 PM CDT) Glucose, POC 143 70 - 199 mg/dL Comment: Interpretive Data Glucose is assumed to be non-fasting. Fasting Glucose reference ranges are: 0 - 150 years: 70 mg/dL - 99 mg/dL Current interpretive data was last revised on 2013. POC Device Number [id number] 3 HERBER MARCANO Blood 01/18/2025 12:1 5 PM CDT 01/18/2025 12:15 PM CDT us Jeffrey Osorio MD PhD LAB POCT ORDERABLES - DEVICE F inal Result Performing Organization Address [facility] de Phone Number HERBER JIMENEZWCH [address] [facility]. [facility] [address] [place], [place] [phone] * POCT glucose (01/18/2025 6:08 AM CDT) Glucose, POC 92 70 - 199 mg/dL Comment: Interpretive Data Glucose is assumed to be non-fasting. Fasting Glucose reference ranges are: 0 - 150 years: 70 mg/dL - 99 mg/dL Current interpretive data was last revised on 2013. POC Device Number [id number] 1 HERBER MARCANO Blood 01/18/2025 6:08 AM CDT 01/18/2025 6:08 AM CDT Jeffrey Osorio MD PhD LAB POCT ORDERABLES - DEVICE F inal Result Performing Organization Address [facility] de Phone Number [facility] [address] [facility] [address] [place], [place] [id number] * POCT glucose (01/18/2025 2:09 AM CDT) Glucose, POC 107 70 - 199 mg/dL Comment: Interpretive Data Glucose is assumed to be non-fasting. Fasting Glucose reference ranges are: 0 - 150 years: 70 mg/dL - 99 mg/dL Current interpretive data was last revised on 2013. POC Device Number [id number] 4 HERBER MARCANO Blood 01/18/2025 2:09 AM CDT 01/18/2025 2:09 AM CDT Jeffrey Osorio MD PhD LAB POCT ORDERABLES - DEVICE F inal Result Performing Organization Address [facility] de Phone Number [facility] [address] [facility] [place] [address] * POCT glucose (01/17/2025 7:36 PM CDT) Glucose, POC 131 70 - 199 mg/dL Comment: Interpretive Data Glucose is assumed to be non-fasting. Fasting Glucose reference ranges are: 0 - 150 years: 70 mg/dL - 99 mg/dL Current interpretive data was last revised on 2013. POC Device Number [id number] 4 BERLINNER BARBARAWCH Blood 01/17/2025 7:36 PM CDT 01/17/2025 7:36 PM CDT us Jeffrey Osorio MD PhD LAB POCT ORDERABLES - DEVICE F inal Result Performing Organization Address [facility] Co de Phone Number HERBER JIMENEZCH [address] [facility]. [facility] [place] [address] * POCT glucose (01/17/2025 5:40 PM CDT) Glucose, POC 161 70 - 199 mg/dL Comment: Interpretive Data Glucose is assumed to be non-fasting. Fasting Glucose reference ranges are: 0 - 150 years: 70 mg/dL - 99 mg/dL Current interpretive data was last revised on 2013. POC Device Number [id number] 3 BERLINNER BARBARAWCH Blood 01/17/2025 5:40 PM CDT 01/17/2025 5:40 PM CDT us Jeffrey Osorio MD PhD LAB POCT ORDERABLES - DEVICE F inal Result Performing Organization Address [facility] de Phone Number HERBER JIMENEZWCH [address] [facility] [address] * POCT glucose (01/17/2025 12:02 PM CDT) Glucose, POC 149 70 - 199 mg/dL Comment: Interpretive Data Glucose is assumed to be non-fasting. Fasting Glucose reference ranges are: 0 - 150 years: 70 mg/dL - 99 mg/dL Current interpretive data was last revised on 2013. POC Device Number [id number] 4 HERBER JIMENEZWCH Blood 01/17/2025 12:0 2 PM CDT 01/17/2025 12:02 PM CDT us Jeffrey Osorio MD PhD LAB POCT ORDERABLES - DEVICE F inal Result Performing Organization Address [facility] Co de Phone Number HERBER JIMENEZCH [address] [facility] [address] * POCT glucose (01/17/2025 8:19 AM CDT) Glucose, POC 198 70 - 199 mg/dL Comment: Interpretive Data Glucose is assumed to be non-fasting. Fasting Glucose reference ranges are: 0 - 150 years: 70 mg/dL - 99 mg/dL Current interpretive data was last revised on 2013. POC Device Number [id number] 1 HERBER MARCANO Blood 01/17/2025 8:19 AM CDT 01/17/2025 8:19 AM CDT Jeffrey Osorio MD PhD LAB POCT ORDERABLES - DEVICE F inal Result Performing Organization Address [facility] de Phone Number [facility] [address] [facility] [address] [place], [place] [phone] * POCT glucose (01/17/2025 3:39 AM CDT) Glucose, POC 98 70 - 199 mg/dL Comment: Interpretive Data Glucose is assumed to be non-fasting. Fasting Glucose reference ranges are: 0 - 150 years: 70 mg/dL - 99 mg/dL Current interpretive data was last revised on 2013. POC Device Number [id number] 1 HERBER MARCANO Blood 01/17/2025 3:39 AM CDT 01/17/2025 3:39 AM CDT Jeffrey Osorio MD PhD LAB POCT ORDERABLES - DEVICE F inal Result Performing Organization Address [facility] Co de Phone Number [facility] [address] [facility] [address] [place], [place] [phone] * POCT glucose (01/17/2025 1:03 AM CDT) Glucose, POC 101 70 - 199 mg/dL Comment: Interpretive Data Glucose is assumed to be non-fasting. Fasting Glucose reference ranges are: 0 - 150 years: 70 mg/dL - 99 mg/dL Current interpretive data was last revised on 2013. POC Device Number [id number] 4 HERBER MARCANO Blood 01/17/2025 1:03 AM CDT 01/17/2025 1:03 AM CDT Jeffrey Osorio MD PhD LAB POCT ORDERABLES - DEVICE F inal Result Performing Organization Address [facility] Phone Number [facility] [address] [facility] [place] [address] * POCT glucose (01/16/2025 11:58 PM CDT) Glucose, POC 110 70 - 199 mg/dL Comment: Interpretive Data Glucose is assumed to be non-fasting. Fasting Glucose reference ranges are: 0 - 150 years: 70 mg/dL - 99 mg/dL Current interpretive data was last revised on 2013. POC Device Number [id number] 4 HERBER MARCANO Blood 01/16/2025 11:5 8 PM CDT 01/16/2025 11:58 PM CDT Jeffrey Osorio MD PhD LAB POCT ORDERABLES - DEVICE F inal Result Performing Organization Address [facility] Phone Number [facility] [address] [place] [address] * POCT glucose (01/16/2025 11:40 PM CDT) Glucose, POC 98 70 - 199 mg/dL Comment: Interpretive Data Glucose is assumed to be non-fasting. Fasting Glucose reference ranges are: 0 - 150 years: 70 mg/dL - 99 mg/dL Current interpretive data was last revised on 2013. POC Device Number [id number] 4 BERLINNER LATOSHACH Blood 01/16/2025 11:4 0 PM CDT 01/16/2025 11:40 PM CDT us Jeffrey Osorio MD PhD LAB POCT ORDERABLES - DEVICE F inal Result Performing Organization Address [facility] de Phone Number HERBER JIMENEZCH [address] [facility]. [facility] [place] [address] * POCT glucose (01/16/2025 11:23 PM CDT) Glucose, POC 93 70 - 199 mg/dL Comment: Interpretive Data Glucose is assumed to be non-fasting. Fasting Glucose reference ranges are: 0 - 150 years: 70 mg/dL - 99 mg/dL Current interpretive data was last revised on 2013. POC Device Number [id number] 4 CERNER BARBARAWCH Blood 01/16/2025 11:2 3 PM CDT 01/16/2025 11:23 PM CDT Jeffrey Osorio MD PhD LAB POCT ORDERABLES - DEVICE F inal Result Performing Organization Address [facility] de Phone Number [facility] [address] [facility]. [facility] [place] [address] * (ABNORMAL) POCT glucose (01/16/2025 11:04 PM CDT) Glucose, POC 57(L) 70 - 199 mg/dL Comment: Interpretive Data Glucose is assumed to be non-fasting. Fasting Glucose reference ranges are: 0 - 150 years: 70 mg/dL - 99 mg/dL Current interpretive data was last revised on 2013. POC Device Number [id number] 4 CERNER BARBARAWCH Blood 01/16/2025 11:0 4 PM CDT 01/16/2025 11:04 PM CDT us Jeffrey Osorio MD PhD LAB POCT ORDERABLES - DEVICE F inal Result Performing Organization Address [facility] de Phone Number HERBER BJWCH [address] [facility]. [facility] [place] [address] * (ABNORMAL) POCT glucose (01/16/2025 10:46 PM CDT) Glucose, POC 58(L) 70 - 199 mg/dL Comment: Interpretive Data Glucose is assumed to be non-fasting. Fasting Glucose reference ranges are: 0 - 150 years: 70 mg/dL - 99 mg/dL Current interpretive data was last revised on 2013. POC Device Number [id number] 4 HERBER MARCANO Blood 01/16/2025 10:4 6 PM CDT 01/16/2025 10:46 PM CDT Jeffrey Osorio MD PhD LAB POCT ORDERABLES - DEVICE F inal Result Performing Organization Address [facility] Co de Phone Number [facility] [address] [facility] [place] [address] * POCT glucose (01/16/2025 7:48 PM CDT) Glucose, POC 186 70 - 199 mg/dL Comment: Interpretive Data Glucose is assumed to be non-fasting. Fasting Glucose reference ranges are: 0 - 150 years: 70 mg/dL - 99 mg/dL Current interpretive data was last revised on 2013. POC Device Number [id number] 4 HERBER MARCANO Blood 01/16/2025 7:48 PM CDT 01/16/2025 7:48 PM CDT Jeffrey Osorio MD PhD LAB POCT ORDERABLES - DEVICE F inal Result Performing Organization Address [facility] de Phone Number [facility] [address] [facility] [address] [place], [place] [phone] * POCT glucose (01/16/2025 4:32 PM CDT) Glucose, POC 134 70 - 199 mg/dL Comment: Interpretive Data Glucose is assumed to be non-fasting. Fasting Glucose reference ranges are: 0 - 150 years: 70 mg/dL - 99 mg/dL Current interpretive data was last revised on 2013. POC Device Number [id number] 4 HERBER MARCANO Blood 01/16/2025 4:32 PM CDT 01/16/2025 4:32 PM CDT us Jeffrey Osorio MD PhD LAB POCT ORDERABLES - DEVICE F inal Result Performing Organization Address [facility] Co de Phone Number [facility] [address] [place] [address] * POCT glucose (01/16/2025 12:40 PM CDT) Glucose, POC 195 70 - 199 mg/dL Comment: Interpretive Data Glucose is assumed to be non-fasting. Fasting Glucose reference ranges are: 0 - 150 years: 70 mg/dL - 99 mg/dL Current interpretive data was last revised on 2013. POC Device Number [id number] 4 HERBER MARCANO Blood 01/16/2025 12:4 0 PM CDT 01/16/2025 12:40 PM CDT us Jeffrey Osorio MD PhD LAB POCT ORDERABLES - DEVICE F inal Result Performing Organization Address [facility] Phone Number HERBER JIMENEZCH [address] [place] [address] * (ABNORMAL) POCT glucose (01/16/2025 9:13 AM CDT) Glucose, POC 210(H) 70 - 199 mg/dL Comment: Interpretive Data Glucose is assumed to be non-fasting. Fasting Glucose reference ranges are: 0 - 150 years: 70 mg/dL - 99 mg/dL Current interpretive data was last revised on 2013. POC Device Number [id number] 4 HERBER MARCANO Blood 01/16/2025 9:13 AM CDT 01/16/2025 9:13 AM CDT us Jeffrey Osorio MD PhD LAB POCT ORDERABLES - DEVICE F inal Result Performing Organization Address [facility]/ZIP Co de Phone Number HERBER JIMENEZWCH [address] [employer] [address] * (ABNORMAL) eGFR (01/16/2025 6:49 AM CDT) Pathologist [facility] eGFR 7(L) >=60 mL/min/1. 73 m2 Comment: [...] 6:49 AM CDT 01/16/2025 7:02 AM CDT Parag Xie MD LAB BLOOD ORDERABLES Marli lipscomb Result HERBER JIMENEZWCH [address] [employer] [address] * (ABNORMAL) CBC without differential (01/16/2025 6:49 AM CDT) WBC 5.02 3.80 - 9.90 K/cumm Hgb 10.1(L) 11.9 - 15.5 g/dL [facility] Hct 32.7(L) 35.6 - 45.5 % [facility] Plt 396 150 - 400 K/cumm [facility] MPV 10.3 9.1 - 12.3 fL [facility] RBC 3.61(L) 3.90 - 5.20 M/cumm [facility] MCV 90.6 81.3 - 96.4 fL [facility] MCH 28.0 27.1 - 33.3 pg [facility] MCHC 30.9(L) 32.3 - 35.7 g/dL [facility] RDW CV 15.4(H) 11.1 - 14.9 % [facility] RDW SD 50.6(H) 35.7 - 48.1 fL [facility] NRBC abs 0.00 0.00 - 0.01 K/cumm [facility] Blood 01/16/2025 6:49 AM CDT 01/16/2025 7:01 AM CDT Parag Xie MD LAB BLOOD ORDERABLES Marli l Result [facility] [address] [facility] [place] [address] * (ABNORMAL) Basic metabolic panel (01/16/2025 6:49 AM CDT) Sodium 137 135 - 145 mmol/L Potassium, pl 4.5 3.3 - 4.9 mmol/L [facility] Chloride 97 97 - 110 mmol/L [facility] CO2 26 22 - 32 mmol/L [facility] Anion gap 14 2 - 15 mmol/L [facility] BUN 68(H) 6 - 25 mg/dL [facility] Creatinine 7.90(H) 0.60 - 1.10 mg/dL [facility] Glucose 126 70 - 199 mg/dL [facility] Comment: Interpretive Data Fasting glucose >/= [...] 2022. Calcium 8.7 8.5 - 10.3 mg/dL HERBER MARCANO Blood 01/16/2025 6:49 AM CDT 01/16/2025 7:01 AM CDT Parag Xie MD LAB BLOOD ORDERABLES Marli l Result Performing Organization Address [facility] de Phone Number [facility] [address] [facility] [place] [address] * POCT glucose (01/16/2025 3:16 AM CDT) Glucose, POC 112 70 - 199 mg/dL Comment: Interpretive Data Glucose is assumed to be non-fasting. Fasting Glucose reference ranges are: 0 - 150 years: 70 mg/dL - 99 mg/dL Current interpretive data was last revised on 2013. POC Device Number [id number] 1 HERBER MARCANO Blood 01/16/2025 3:16 AM CDT 01/16/2025 3:16 AM CDT Parag Xie MD LAB POCT ORDERABLES - DEV ICE Final Result Performing Organization Address [facility] de Phone Number [facility] [address] [facility] [place] [address] * POCT glucose (01/15/2025 11:41 PM CDT) Glucose, POC 72 70 - 199 mg/dL Comment: Interpretive Data Glucose is assumed to be non-fasting. Fasting Glucose reference ranges are: 0 - 150 years: 70 mg/dL - 99 mg/dL Current interpretive data was last revised on 2013. POC Device Number [id number] 1 HERBER JIMENEZWCYDNEY Blood 01/15/2025 11:4 1 PM CDT 01/15/2025 11:41 PM CDT Parag Xie MD LAB POCT ORDERABLES - DEV ICE Final Result Performing Organization Address [facility] de Phone Number [facility] [address] [facility]. [facility] [place] [address] * POCT glucose (01/15/2025 8:45 PM CDT) Glucose, POC 85 70 - 199 mg/dL Comment: Interpretive Data Glucose is assumed to be non-fasting. Fasting Glucose reference ranges are: 0 - 150 years: 70 mg/dL - 99 mg/dL Current interpretive data was last revised on 2013. POC Device Number [id number] 1 HERBER MARCANO Blood 01/15/2025 8:45 PM CDT 01/15/2025 8:45 PM CDT Parag Xie MD LAB POCT ORDERABLES - DEV ICE Final Result Performing Organization Address [facility] de Phone Number [facility] [address] [facility]. [facility] [place] [address] * POCT glucose (01/15/2025 7:01 PM CDT) Glucose, POC 121 70 - 199 mg/dL Comment: Interpretive Data Glucose is assumed to be non-fasting. Fasting Glucose reference ranges are: 0 - 150 years: 70 mg/dL - 99 mg/dL Current interpretive data was last revised on 2013. POC Device Number [id number] 1 HERBER MARCANO Blood 01/15/2025 7:01 PM CDT 01/15/2025 7:01 PM CDT Parag Xie MD LAB POCT ORDERABLES - DEV ICE Final Result Performing Organization Address [facility] de Phone Number [facility] [address] [facility]. [facility] [place] [address] * POCT hCG, urine (01/15/2025 4:15 PM [...] it. Electronically signed by: Arielle Sharpe M.D. Odilon Correa MD PhD IMG CT PROCEDURES [...] tendency for uric acid stone formation. Source: [facility] Current Interpretive Data was last revised on [...] GENERAL ORDERABLES Final Result Performing Organization Address [facility] de Phone Number [facility] [address] [place] [address] * (ABNORMAL) Urinalysis, microscopic only (01/15/2025 4:12 PM CDT) WBC, ur 0-5 0 - 5 /HPF RBC, ur 6-10(A) 0 - 2 /HPF [facility] Epithelial cells, squamous, ur 6-10(A) 0 - 5 /HPF [facility] Bacteria, ur 3+(A) [facility] Mucous, ur Present(A) [facility] Culture Reflex Comment Reflex conditions for urine culture (WBC >10) not met. [facility] Urine 01/15/2025 4:12 PM CDT 01/15/2025 4:14 PM CDT Odilon Correa MD PhD LAB URINE ORDERABLE S Final Result Performing Organization Address [facility] Co de Phone Number HERBER JMIENEZCH [address] [employer] [place] [address] * (ABNORMAL) eGFR (01/15/2025 3:18 PM CDT) Pathologist [facility] eGFR 7(L) >=60 mL/min/1. 73 m2 Comment: [...] LAB BLOOD ORDERABLES Fin al Result [facility] [address] [facility]. [place] [address] * Differential, auto (01/15/2025 3:18 PM CDT) Pathologist [facility] Neutrophil abs 2.90 1.50 - 6.50 K/cumm [...] 2017. Imm gran pct 0.4 % HERBER MARCANO Comment: Interpretive Data Percent cell count reference ranges are not reported, since discordance with absolute values may lead to misinterpretation of CBC data. Current Interpretive Data was last revised on 2017. Lymphocyte pct 29.2 % HERBER MARCANO Comment: Interpretive Data Percent cell count reference ranges are not reported, since discordance with absolute values may lead to misinterpretation of CBC data. Current Interpretive Data was last revised on 2017. Monocyte pct 7.8 % HERBER MARCANO Comment: Interpretive Data Percent cell count reference ranges are not reported, since discordance with absolute values may lead to misinterpretation of CBC data. Current Interpretive Data was last revised on 2017. Eosinophil pct 1.5 % HERBER MARCANO Comment: Interpretive Data Percent cell count reference ranges are not reported, since discordance with absolute values may lead to misinterpretation of CBC data. Current Interpretive Data was last revised on 2017. Basophil pct 0.2 % HERBER MARCANO Comment: Interpretive Data Percent cell count reference ranges are not reported, since discordance with absolute values may lead to misinterpretation of CBC data. Current Interpretive Data was last revised on 2017. Blood 01/15/2025 3:18 PM CDT 01/15/2025 3:21 PM CDT Ashlee FRANCE LAB BLOOD ORDERABLES Fin al Result [facility] [address] [facility]. [place] [address] * (ABNORMAL) CBC with auto differential (01/15/2025 3:18 PM CDT) WBC 4.76 3.80 - 9.90 K/cumm Hgb 9.5(L) 11.9 - 15.5 g/dL HERBER MARCANO Hct 30.9(L) 35.6 - 45.5 % [facility] Plt 372 150 - 400 K/cumm [facility] MPV 10.4 9.1 - 12.3 fL [facility] RBC 3.40(L) 3.90 - 5.20 M/cumm [facility] MCV 90.9 81.3 - 96.4 fL [facility] MCH 27.9 27.1 - 33.3 pg [facility] MCHC 30.7(L) 32.3 - 35.7 g/dL [facility] RDW CV 15.5(H) 11.1 - 14.9 % [facility] RDW SD 50.7(H) 35.7 - 48.1 fL [facility] NRBC abs 0.00 0.00 - 0.01 K/cumm [facility] Blood Venous blood specimen / Unknown 01/15/2025 3:18 PM CDT 01/15/2025 3:21 PM CDT us Odilon Correa MD PhD LAB BLOOD ORDERABLE S Final Result [facility] [address] [facility] Department [place] [address] * (ABNORMAL) Comprehensive metabolic panel (01/15/2025 3:18 PM CDT) Sodium 139 135 - 145 mmol/L Potassium, pl 4.8 3.3 - 4.9 mmol/L [facility] Chloride 98 97 - 110 mmol/L [facility] CO2 23 22 - 32 mmol/L [facility] Anion gap 18(H) 2 - 15 mmol/L [facility] BUN 67(H) 6 - 25 mg/dL [facility] Creatinine 7.31(H) 0.60 - 1.10 mg/dL [facility] Glucose 176 70 - 199 mg/dL [facility] Comment: Interpretive Data Fasting glucose >/= [...] Alk phos 147(H) 40 - 130 Units/L [facility] ALT 36 7 - 45 Units/L [facility] AST 21 10 - 45 Units/L [facility] Blood Venous blood specimen / Unknown 01/15/2025 3:18 PM CDT 01/15/2025 3:21 PM CDT us Odilon Correa MD PhD LAB BLOOD ORDERABLE S Final Result Performing Organization Address City/State/[facility] Co de Phone Number HERBER REINACH [address] [facility]. [place] [address] * (ABNORMAL) POCT glucose (01/12/2025 10:49 AM CDT) [facility] Signature Glucose, POC 270(H) 70 - 199 mg/dL Comment: Interpretive Data Glucose is assumed to be non-fasting. Fasting Glucose reference ranges are: 0 - 150 years: 70 mg/dL - 99 mg/dL Current interpretive data was last revised on 2013. POC Device Number [id number] [facility] Blood 01/12/2025 10:4 9 AM CDT 01/12/2025 10:49 AM CDT us Parag Xie MD LAB POCT ORDERABLES - DEV ICE Final Result HERBER REINACH [address] [facility]. [facility] [place] [address] * (ABNORMAL) POCT glucose (01/12/2025 8:11 AM CDT) Glucose, POC 343(H) 70 - 199 mg/dL Comment: Interpretive Data Glucose is assumed to be non-fasting. Fasting Glucose reference ranges are: 0 - 150 years: 70 mg/dL - 99 mg/dL Current interpretive data was last revised on 2013. POC Device Number [id number] 1 HERBER MARCANO Blood 01/12/2025 8:11 AM CDT 01/12/2025 8:11 AM CDT us Parag Xie MD LAB POCT ORDERABLES - DEV ICE Final Result Performing Organization Address [facility] de Phone Number HERBER JIMENEZWCH [address] [facility]. [facility] [place] [address] * POCT glucose (01/11/2025 11:44 PM CDT) Glucose, POC 129 70 - 199 mg/dL Comment: Interpretive Data Glucose is assumed to be non-fasting. Fasting Glucose reference ranges are: 0 - 150 years: 70 mg/dL - 99 mg/dL Current interpretive data was last revised on 2013. POC Device Number [id number] 1 HERBER MARCANO Blood 01/11/2025 11:4 4 PM CDT 01/11/2025 11:44 PM CDT Parag Xie MD LAB POCT ORDERABLES - DEV ICE Final Result Performing Organization Address [facility] de Phone Number HERBER BJWCH [address] [facility]. [facility] [place] [address] * POCT glucose (01/11/2025 10:23 PM CDT) Glucose, POC 170 70 - 199 mg/dL Comment: Interpretive Data Glucose is assumed to be non-fasting. Fasting Glucose reference ranges are: 0 - 150 years: 70 mg/dL - 99 mg/dL Current interpretive data was last revised on 2013. POC Device Number [id number] 1 HERBER MARCANO Blood 01/11/2025 10:2 3 PM CDT 01/11/2025 10:23 PM CDT Parag Xie MD LAB POCT ORDERABLES - DEV ICE Final Result Performing Organization Address [facility] de Phone Number [facility] [address] [facility] [address] [place], [place] [id number] * (ABNORMAL) POCT glucose (01/11/2025 8:33 PM CDT) Glucose, POC 225(H) 70 - 199 mg/dL Comment: Interpretive Data Glucose is assumed to be non-fasting. Fasting Glucose reference ranges are: 0 - 150 years: 70 mg/dL - 99 mg/dL Current interpretive data was last revised on 2013. POC Device Number [id number] HERBER MARCANO Blood 01/11/2025 8:33 PM CDT 01/11/2025 8:33 PM CDT Parag Xie MD LAB POCT ORDERABLES - DEV ICE Final Result Performing Organization Address [facility] de Phone Number HERBER JIMENEZWCH [address] [employer]. [facility] [place] [address] * (ABNORMAL) POCT glucose (01/11/2025 7:01 PM CDT) Glucose, POC 203(H) 70 - 199 mg/dL Comment: Interpretive Data Glucose is assumed to be non-fasting. Fasting Glucose reference ranges are: 0 - 150 years: 70 mg/dL - 99 mg/dL Current interpretive data was last revised on 2013. POC Device Number [id number] HERBER MARCANO Blood 01/11/2025 7:01 PM CDT 01/11/2025 7:01 PM CDT Parag Xie MD LAB POCT ORDERABLES - DEV ICE Final Result Performing Organization Address [facility] Co de Phone Number HERBER REINACH [address] [facility]. [facility] [place] [address] * POCT glucose (01/11/2025 5:03 PM CDT) Glucose, POC 142 70 - 199 mg/dL Comment: Interpretive Data Glucose is assumed to be non-fasting. Fasting Glucose reference ranges are: 0 - 150 years: 70 mg/dL - 99 mg/dL Current interpretive data was last revised on 2013. POC Device Number [id number] HERBER JIMENEZWCH Blood 01/11/2025 5:03 PM CDT 01/11/2025 5:03 PM CDT Parag Xie MD LAB POCT ORDERABLES - DEV ICE Final Result Performing Organization Address [facility] de Phone Number HERBER JIMENEZCH [phone] [facility] [address] * POCT glucose (01/11/2025 12:02 PM CDT) Glucose, POC 87 70 - 199 mg/dL Comment: Interpretive Data Glucose is assumed to be non-fasting. Fasting Glucose reference ranges are: 0 - 150 years: 70 mg/dL - 99 mg/dL Current interpretive data was last revised on 2013. POC Device Number [id number] CERNER BARBARAWCH Blood 01/11/2025 12:0 2 PM CDT 01/11/2025 12:02 PM CDT Parag Xie MD LAB POCT ORDERABLES - DEV ICE Final Result Performing Organization Address [facility] de Phone Number [facility] [address] [facility]. [place] [address] * POCT glucose (01/11/2025 9:14 AM CDT) Glucose, POC 194 70 - 199 mg/dL Comment: Interpretive Data Glucose is assumed to be non-fasting. Fasting Glucose reference ranges are: 0 - 150 years: 70 mg/dL - 99 mg/dL Current interpretive data was last revised on 2013. POC Device Number [id number] 9 HERBER REINACH Blood 01/11/2025 9:14 AM CDT 01/11/2025 9:14 AM CDT us Parag Xie MD LAB POCT ORDERABLES - DEV ICE Final Result [facility] [address] [facility] [place] [address] * (ABNORMAL) eGFR (01/11/2025 8:27 AM CDT) [facility] eGFR 8(L) >=60 mL/min/1. 73 m2 Comment: [...] ORDERABLES Final Re sult Performing Organization Address [facility] Co de Phone Number HERBER JIMENEZCH [address] [address] [facility] [place] [address] * (ABNORMAL) Phosphorus (01/11/2025 8:27 AM CDT) Phosphorus, pl 6.9(H) 2.3 - 4.5 mg/dL Blood 01/11/2025 8:27 AM CDT 01/11/2025 8:35 AM CDT Narrative HERBER MARCANO - 01/11/2025 8:53 AM CDT Please draw with dialysis Lisbet Franz MD LAB BLOOD ORDERABLES Final Re sult Performing Organization Address [facility] de Phone Number HERBER BJCH [phone] [employer]. [facility] [place] [address] * Magnesium (01/11/2025 8:27 AM CDT) Magnesium 2.4 1.4 - 2.5 mg/dL Comment: Reference Data. Reference values for Labor and Delivery patients: < or = 0.7 mg/dL to > or = 7.3 mg/dL Current reference data last reviewd on 01/16/2015. Blood 01/11/2025 8:2 7 AM CDT 01/11/2025 8:35 AM CDT Narrative HERBER MARCANO - 01/11/2025 8:53 AM CDT Please draw with dialysis Lisbet Franz MD LAB BLOOD ORDERABLES Final Re sult Performing Organization Address [facility] Co de Phone Number HERBER JIMENEZWCH [phone] [facility] [employer] [facility] [place] [address] * (ABNORMAL) Basic metabolic panel (01/11/2025 8:27 AM CDT) Sodium 139 135 - 145 mmol/L Potassium, pl 4.1 3.3 - 4.9 mmol/L [facility] Chloride 103 97 - 110 mmol/L [facility] CO2 23 22 - 32 mmol/L [facility] Anion gap 13 2 - 15 mmol/L [facility] BUN 45(H) 6 - 25 mg/dL [facility] Creatinine 6.97(H) 0.60 - 1.10 mg/dL [facility] Glucose 237(H) 70 - 199 mg/dL [facility] Comment: Interpretive Data Fasting glucose >/= [...] 2022. Calcium 7.1(L) 8.5 - 10.3 mg/dL [facility] Blood 01/11/2025 8:27 AM CDT 01/11/2025 8:35 AM CDT Narrative [facility] - 01/11/2025 8:53 AM CDT Please draw with dialysis us Lisbet Franz MD LAB BLOOD ORDERABLES Final Re sult [facility] [address] [facility]. Department of Laboratories [place], [place] [id number] * (ABNORMAL) POCT glucose (01/11/2025 7:52 AM CDT) [facility] Glucose, POC 249(H) 70 - 199 mg/dL Comment: Interpretive Data Glucose is assumed to be non-fasting. Fasting Glucose reference ranges are: 0 - 150 years: 70 mg/dL - 99 mg/dL Current interpretive data was last revised on 2013. POC Device Number [id number] HERBER MARCANO Blood 01/11/2025 7:52 AM CDT 01/11/2025 7:52 AM CDT Parag Xie MD LAB POCT ORDERABLES - DEV ICE Final Result Performing Organization Address [facility] Phone Number HERBER JIMENEZCH [address] [facility] [place] [address] * (ABNORMAL) POCT glucose (01/11/2025 4:35 AM CDT) Glucose, POC 267(H) 70 - 199 mg/dL Comment: Interpretive Data Glucose is assumed to be non-fasting. Fasting Glucose reference ranges are: 0 - 150 years: 70 mg/dL - 99 mg/dL Current interpretive data was last revised on 2013. POC Device Number [id number] BERLINLULY JIMENEZWCH Glucose comment 1 RN/MD Notified HERBER MARCANO Blood 01/11/2025 4:35 AM CDT 01/11/2025 4:35 AM CDT Parag Xie MD LAB POCT ORDERABLES - DEV ICE Final Result Performing Organization Address [facility] Phone Number HERBER REINACH [address] [place] [address] * (ABNORMAL) POCT glucose (01/10/2025 11:36 PM CDT) Glucose, POC 220(H) 70 - 199 mg/dL Comment: Interpretive Data Glucose is assumed to be non-fasting. Fasting Glucose reference ranges are: 0 - 150 years: 70 mg/dL - 99 mg/dL Current interpretive data was last revised on 2013. POC Device Number [id number] BERLINNER BARBARAWCH Glucose comment 1 RN/MD Notified HERBER MARCANO Blood 01/10/2025 11:3 6 PM CDT 01/10/2025 11:36 PM CDT Parag Xie MD LAB POCT ORDERABLES - DEV ICE Final Result Performing Organization Address [facility] de Phone Number [facility] [address] [facility] [address] [place], [place] [id number] * POCT glucose (01/10/2025 9:11 PM CDT) Glucose, POC 142 70 - 199 mg/dL Comment: Interpretive Data Glucose is assumed to be non-fasting. Fasting Glucose reference ranges are: 0 - 150 years: 70 mg/dL - 99 mg/dL Current interpretive data was last revised on 2013. POC Device Number [id number] 9 HERBER MARCANO Blood 01/10/2025 9:11 PM CDT 01/10/2025 9:11 PM CDT Parag Xie MD LAB POCT ORDERABLES - DEV ICE Final Result Performing Organization Address [facility] de Phone Number HERBER JIMENEZCH [address] [facility]. [facility] [place] [address] * POCT glucose (01/10/2025 7:44 PM CDT) Glucose, POC 159 70 - 199 mg/dL Comment: Interpretive Data Glucose is assumed to be non-fasting. Fasting Glucose reference ranges are: 0 - 150 years: 70 mg/dL - 99 mg/dL Current interpretive data was last revised on 2013. POC Device Number [id number] 9 HERBER MARCANO Blood 01/10/2025 7:44 PM CDT 01/10/2025 7:44 PM CDT Parag Xie MD LAB POCT ORDERABLES - DEV ICE Final Result Performing Organization Address [facility] de Phone Number HERBER BJW[facility] [address] [facility]. [facility] [place] [address] * (ABNORMAL) POCT glucose (01/10/2025 5:29 PM CDT) Glucose, POC 230(H) 70 - 199 mg/dL Comment: Interpretive Data Glucose is assumed to be non-fasting. Fasting Glucose reference ranges are: 0 - 150 years: 70 mg/dL - 99 mg/dL Current interpretive data was last revised on 2013. POC Device Number [id number] 9 HERBER MARCANO Blood 01/10/2025 5:29 PM CDT 01/10/2025 5:29 PM CDT Parag Xie MD LAB POCT ORDERABLES - DEV ICE Final Result Performing Organization Address [facility] de Phone Number [facility] [address] [facility] [address] [place], [place] [id number] * (ABNORMAL) POCT glucose (01/10/2025 1:56 PM CDT) Glucose, POC 233(H) 70 - 199 mg/dL Comment: Interpretive Data Glucose is assumed to be non-fasting. Fasting Glucose reference ranges are: 0 - 150 years: 70 mg/dL - 99 mg/dL Current interpretive data was last revised on 2013. POC Device Number [id number] 9 HERBER REINA Blood 01/10/2025 1:56 PM CDT 01/10/2025 1:56 PM CDT Parag Xie MD LAB POCT ORDERABLES - DEV ICE Final Result Performing Organization Address [facility] de Phone Number [facility] [address] [facility] [address] [place], [place] [address] * (ABNORMAL) POCT glucose (01/10/2025 12:01 PM CDT) Glucose, POC 331(H) 70 - 199 mg/dL Comment: Interpretive Data Glucose is assumed to be non-fasting. Fasting Glucose reference ranges are: 0 - 150 years: 70 mg/dL - 99 mg/dL Current interpretive data was last revised on 2013. POC Device Number [id number] HERBER MARCANO Blood 01/10/2025 12:0 1 PM CDT 01/10/2025 12:01 PM CDT Parag Xie MD LAB POCT ORDERABLES - DEV ICE Final Result Performing Organization Address [facility] Phone Number HERBER JIMENEZWCH [address] [facility] [place] [address] * (ABNORMAL) POCT glucose (01/10/2025 10:22 AM CDT) Glucose, POC 335(H) 70 - 199 mg/dL Comment: Interpretive Data Glucose is assumed to be non-fasting. Fasting Glucose reference ranges are: 0 - 150 years: 70 mg/dL - 99 mg/dL Current interpretive data was last revised on 2013. POC Device Number [id number] HERBER JIMENEZWCH Glucose comment 1 RN/MD Notified HERBER MARCANO Blood 01/10/2025 10:2 2 AM CDT 01/10/2025 10:22 AM CDT Parag Xie MD LAB POCT ORDERABLES - DEV ICE Final Result Performing Organization Address [facility] Phone Number HERBER BJWCH [address] [place] [address] * POCT glucose (01/10/2025 7:57 AM CDT) Glucose, POC 185 70 - 199 mg/dL Comment: Interpretive Data Glucose is assumed to be non-fasting. Fasting Glucose reference ranges are: 0 - 150 years: 70 mg/dL - 99 mg/dL Current interpretive data was last revised on 2013. POC Device Number [id number] 4 HERBER MARCANO Blood 01/10/2025 7:57 AM CDT 01/10/2025 7:57 AM CDT Parag Xie MD LAB POCT ORDERABLES - DEV ICE Final Result Performing Organization Address [facility] de Phone Number HERBER B[facility] [address] [facility] [place] [address] * POCT glucose (01/10/2025 4:07 AM CDT) Glucose, POC 114 70 - 199 mg/dL Comment: Interpretive Data Glucose is assumed to be non-fasting. Fasting Glucose reference ranges are: 0 - 150 years: 70 mg/dL - 99 mg/dL Current interpretive data was last revised on 2013. POC Device Number [id number] [facility] Blood 01/10/2025 4:07 AM CDT 01/10/2025 4:07 AM CDT Parag Xie MD LAB POCT ORDERABLES - DEV ICE Final Result Performing Organization Address [facility] de Phone Number HERBER BJW[facility] [address] [facility] [place] [address] * (ABNORMAL) eGFR (01/10/2025 4:02 AM CDT) [...] ORDERABLES Marli lipscomb Result Performing Organization Address [facility] Co de Phone Number HERBER MARCANO [address] [facility] [place] [address] * (ABNORMAL) CBC without differential (01/10/2025 4:02 AM CDT) WBC 4.58 3.80 - 9.90 K/cumm Hgb 9.0(L) 11.9 - 15.5 g/dL [facility] Hct 28.2(L) 35.6 - 45.5 % [facility] Plt 274 150 - 400 K/cumm [facility] MPV 10.6 9.1 - 12.3 fL [facility] RBC 3.18(L) 3.90 - 5.20 M/cumm [facility] MCV 88.7 81.3 - 96.4 fL [facility] MCH 28.3 27.1 - 33.3 pg [facility] MCHC 31.9(L) 32.3 - 35.7 g/dL [facility] RDW CV 15.2(H) 11.1 - 14.9 % [facility] RDW SD 48.3(H) 35.7 - 48.1 fL [facility] NRBC abs 0.00 0.00 - 0.01 K/cumm [facility] Blood 01/10/2025 4:02 AM CDT 01/10/2025 4:20 AM CDT Parag Xie MD LAB BLOOD ORDERABLES Marli lipscomb Result Performing Organization Address [facility] Co de Phone Number HERBER MARCANO [phone] [employer]. [facility] [place] [address] * (ABNORMAL) Basic metabolic panel (01/10/2025 4:02 AM CDT) Sodium 136 135 - 145 mmol/L Potassium, pl 3.5 3.3 - 4.9 mmol/L [facility] Chloride 98 97 - 110 mmol/L [facility] CO2 24 22 - 32 mmol/L [facility] Anion gap 14 2 - 15 mmol/L [facility] BUN 22 6 - 25 mg/dL [facility] Creatinine 5.00(H) 0.60 - 1.10 mg/dL [facility] Glucose 109 70 - 199 mg/dL [facility] Comment: Interpretive Data Fasting glucose >/= [...] 2022. Calcium 7.7(L) 8.5 - 10.3 mg/dL [facility] Blood 01/10/2025 4:02 AM CDT 01/10/2025 4:20 AM CDT Parag Xie MD LAB BLOOD ORDERABLES Marli l Result [facility] J[facility]ENEZWCH [address] [facility]. [place] [address] * POCT glucose (01/09/2025 11:05 PM CDT) Glucose, POC 159 70 - 199 mg/dL Comment: Interpretive Data Glucose is assumed to be non-fasting. Fasting Glucose reference ranges are: 0 - 150 years: 70 mg/dL - 99 mg/dL Current interpretive data was last revised on 2013. POC Device Number [id number] [facility] Blood 01/09/2025 11:0 5 PM CDT 01/09/2025 11:05 PM CDT Parag Xie MD LAB POCT ORDERABLES - DEV ICE Final Result Performing Organization Address [facility] Co de Phone Number HERBER MARCANO [address] [facility] [place] [address] * (ABNORMAL) POCT glucose (01/09/2025 10:22 PM CDT) Glucose, POC 60(L) 70 - 199 mg/dL Comment: Interpretive Data Glucose is assumed to be non-fasting. Fasting Glucose reference ranges are: 0 - 150 years: 70 mg/dL - 99 mg/dL Current interpretive data was last revised on 2013. POC Device Number [id number] HERBER MARCANO Blood 01/09/2025 10:2 2 PM CDT 01/09/2025 10:22 PM CDT Parag Xie MD LAB POCT ORDERABLES - DEV ICE Final Result Performing Organization Address [facility] de Phone Number HERBER JIMENEZCH [address] [facility] [place] [address] * POCT glucose (01/09/2025 8:46 PM CDT) Glucose, POC 80 70 - 199 mg/dL Comment: Interpretive Data Glucose is assumed to be non-fasting. Fasting Glucose reference ranges are: 0 - 150 years: 70 mg/dL - 99 mg/dL Current interpretive data was last revised on 2013. POC Device Number [id number] 1 HERBER MARCANO Blood 01/09/2025 8:46 PM CDT 01/09/2025 8:46 PM CDT Parag Xie MD LAB POCT ORDERABLES - DEV ICE Final Result Performing Organization Address City/[facility] Co de Phone Number HERBER JIMENEZCH [address] [facility] [place] [address] * POCT glucose (01/09/2025 6:06 PM CDT) Glucose, POC 193 70 - 199 mg/dL Comment: Interpretive Data Glucose is assumed to be non-fasting. Fasting Glucose reference ranges are: 0 - 150 years: 70 mg/dL - 99 mg/dL Current interpretive data was last revised on 2013. POC Device Number [id number] HERBER REINA Blood 01/09/2025 6:06 PM CDT 01/09/2025 6:06 PM CDT Parag Xie MD LAB POCT ORDERABLES - DEV ICE Final Result Performing Organization Address [facility] de Phone Number [facility] [address] [facility]. [facility] [place] [address] * (ABNORMAL) POCT glucose (01/09/2025 5:41 PM CDT) Glucose, POC 64(L) 70 - 199 mg/dL Comment: Interpretive Data Glucose is assumed to be non-fasting. Fasting Glucose reference ranges are: 0 - 150 years: 70 mg/dL - 99 mg/dL Current interpretive data was last revised on 2013. POC Device Number [id number] [facility] Blood 01/09/2025 5:41 PM CDT 01/09/2025 5:41 PM CDT Parag Xie MD LAB POCT ORDERABLES - DEV ICE Final Result Performing Organization Address [facility] Co de Phone Number [facility] [address] [facility]. [facility] [place] [address] * POCT glucose (01/09/2025 5:05 PM CDT) Glucose, POC 100 70 - 199 mg/dL Comment: Interpretive Data Glucose is assumed to be non-fasting. Fasting Glucose reference ranges are: 0 - 150 years: 70 mg/dL - 99 mg/dL Current interpretive data was last revised on 2013. POC Device Number [id number] HERBER REINACH Blood 01/09/2025 5:05 PM CDT 01/09/2025 5:05 PM CDT us Parag Xie MD LAB POCT ORDERABLES - DEV ICE Final Result Performing Organization Address [facility] de Phone Number [facility] [address] [place] [address] * (ABNORMAL) POCT glucose (01/09/2025 2:05 PM CDT) Pathologist [facility] Glucose, POC 228(H) 70 - 199 mg/dL Comment: Interpretive Data Glucose is assumed to be non-fasting. Fasting Glucose reference ranges are: 0 - 150 years: 70 mg/dL - 99 mg/dL Current interpretive data was last revised on 2013. POC Device Number [id number] [facility] Blood 01/09/2025 2:05 PM CDT 01/09/2025 2:05 PM CDT us Parag Xie MD LAB POCT ORDERABLES - DEV ICE Final Result Performing Organization Address [facility] de Phone Number [facility] [address] [facility] [employer] [address] * Hepatitis B Surface Antigen Blood (01/09/2025 1:16 PM CDT) Pathologist [facility] HepBsAg Nonreactive Nonreactive Comment:Testing performed by : [facility], [facility] [facility], [place]., [address] Blood 01/09/2025 1:16 PM CDT 01/09/2025 2:13 PM CDT us Russell Weller MD LAB MICROBIOLOGY - GENER AL ORDERABLES Final Result Performing Organization Address [facility] de Phone Number [facility] [address] [facility]. [facility] [place] [address] * (ABNORMAL) POCT glucose (01/09/2025 12:44 PM CDT) Glucose, POC 298(H) 70 - 199 mg/dL Comment: Interpretive Data Glucose is assumed to be non-fasting. Fasting Glucose reference ranges are: 0 - 150 years: 70 mg/dL - 99 mg/dL Current interpretive data was last revised on 2013. POC Device Number [id number] [facility] Blood 01/09/2025 12:4 4 PM CDT 01/09/2025 12:44 PM CDT Parag Xie MD LAB POCT ORDERABLES - DEV ICE Final Result Performing Organization Address [facility] Phone Number [facility] [address] [facility]. [facility] [place] [address] * (ABNORMAL) POCT glucose (01/09/2025 12:00 PM CDT) Glucose, POC 342(H) 70 - 199 mg/dL Comment: Interpretive Data Glucose is assumed to be non-fasting. Fasting Glucose reference ranges are: 0 - 150 years: 70 mg/dL - 99 mg/dL Current interpretive data was last revised on 2013. POC Device Number [id number] CERNER BARBARAW Blood 01/09/2025 12:0 0 PM CDT 01/09/2025 12:00 PM CDT Parag Xie MD LAB POCT ORDERABLES - DEV ICE Final Result Performing Organization Address [facility] de Phone Number [facility] [address] [facility]. [facility] [place] [address] * (ABNORMAL) POCT glucose (01/09/2025 10:55 AM CDT) Glucose, POC 358(H) 70 - 199 mg/dL Comment: Interpretive Data Glucose is assumed to be non-fasting. Fasting Glucose reference ranges are: 0 - 150 years: 70 mg/dL - 99 mg/dL Current interpretive data was last revised on 2013. POC Device Number [id number] [facility] Blood 01/09/2025 10:5 5 AM CDT 01/09/2025 10:55 AM CDT us Parag Xie MD LAB POCT ORDERABLES - DEV ICE Final Result HERBER REINACH [id number] [facility]. [place] [address] * IR Gastrojejunostomy Tube Placement (01/09/2025 10:32 AM CDT) Anatomical Region Laterality Modality Body N/A X-Ray Angiograph y 01/09/2025 4:17 PM CDT Impressions 01/09/2025 4:17 PM CDT Successful placement of a 18 Mongol[place] Arlene single lumen gastrojejunostomy catheter. PLAN: The [...] was obtained. Prior to beginning the procedure, [place] Protocol was performed to confirm the patient's [...] was obtained. Prior to beginning the procedure, [place] Protocol was performed to confirm the patient's [...] jejunum. IMPRESSION: Successful placement of a 18 Mongol[place] Arlene single lumen gastrojejunostomy catheter. PLAN: The catheter is ready for feeding immediately through the jejunal port. Please flush the catheter with 20 cc of water after every feed and once each shift. Never attempt to administer crushed pills through the jejunal lumen. Electronically signed by: Jamie Bell M.D. Yessenia Dominguez MD [facility] IR PROCEDURES Final Res ult * MN AN ELECTIVE ENDOTRACHEAL AIRWAY, MN AN PROCEDURE PLACEHOLDER (01/09/2025 9:43 AM CDT) [...] * POCT glucose (01/09/2025 9:02 AM CDT) Glucose, POC 120 70 - 199 mg/dL Comment: Interpretive Data Glucose is assumed to be non-fasting. Fasting Glucose reference ranges are: 0 - 150 years: 70 mg/dL - 99 mg/dL Current interpretive data was last revised on 2013. POC Device Number [id number] [facility] Blood 01/09/2025 9:02 AM CDT 01/09/2025 9:02 AM CDT Parag Xie MD LAB POCT ORDERABLES - DEV ICE Final Result [facility] [id number] [facility]. [place] [address] * POCT hCG, urine (01/09/2025 8:59 AM [...] last revised on 2013. POC Device Number [id number] HERBER MARCANO Blood 01/09/2025 7:09 AM CDT 01/09/2025 7:09 AM CDT Parag Xie MD LAB POCT ORDERABLES - DEV ICE Final Result Performing Organization Address [facility] de Phone Number [facility] [phone] [employer]. [facility] [place] [address] * POCT glucose (01/09/2025 4:11 AM CDT) Glucose, POC 130 70 - 199 mg/dL Comment: Interpretive Data Glucose is assumed to be non-fasting. Fasting Glucose reference ranges are: 0 - 150 years: 70 mg/dL - 99 mg/dL Current interpretive data was last revised on 2013. POC Device Number [id number] [facility]BER JIMENEZW[facility] Blood 01/09/2025 4:11 AM CDT 01/09/2025 4:11 AM CDT Yessenia Dominguez MD LAB POCT ORDERABLES - DEVIC E Final Result Performing Organization Address [facility] de Phone Number [facility] [phone] [employer] [place] [address] * Beta-hydroxybutyrate (01/09/2025 12:50 AM CDT) Beta-Hydroxybut yrate <0.5 0.0 - 0.5 mmol/L Blood 01/09/2025 12:5 0 AM CDT 01/09/2025 12:57 AM CDT Yessenia Dominguez MD LAB BLOOD ORDERABLES Edited Result - Final Performing Organization Address [facility] de Phone Number [facility] [address] [facility]. [place] [address] * (ABNORMAL) eGFR (01/09/2025 12:49 AM CDT) eGFR 5(L) >=60 mL/min/1. 73 m2 Comment: [...] 9 AM CDT 01/09/2025 12:57 AM CDT us Yessenia Dominguez MD LAB BLOOD ORDERABLES Final Result Performing Organization Address City/State/ZIP Co id Phone Number [facility] [phone] [facility]. [facility] [place] [address] * Blood gas, venous (01/09/2025 12:49 AM CDT) pH, Venous 7.34 7.32 - 7.43 PCO2, Venous 42 40 - 50 mmHg [facility] PO2, Venous 60 mmHg [facility] Comment: Interpretive Data No reference range established. Current interpretive data was last revised 2019. HCO3 Venous, Calculated 23 20 - 30 mmol/L [facility] BE, venous -3 mmol/L [facility] Comment: Interpretive Data No Reference Range Established Current Interpretive Data was last revised on 2017. Blood 01/09/2025 12:4 9 AM CDT 01/09/2025 12:57 AM CDT Yessenia Dominguez MD LAB BLOOD ORDERABLES Final Result [facility] [address] [facility] [place] [address] * (ABNORMAL) Basic metabolic panel (01/09/2025 12:49 AM CDT) Pathologist [facility] Sodium 138 135 - 145 mmol/L Potassium, pl 4.4 3.3 - 4.9 mmol/L [facility] Chloride 101 97 - 110 mmol/L [facility] CO2 22 22 - 32 mmol/L [facility] Anion gap 15 2 - 15 mmol/L [facility] BUN 55(H) 6 - 25 mg/dL [facility] Creatinine 9.20(H) 0.60 - 1.10 mg/dL [facility] Glucose 292(H) 70 - 199 mg/dL [facility] Comment: Interpretive Data Fasting glucose >/= 126 [...] 2022. Calcium 7.2(L) 8.5 - 10.3 mg/dL [facility] Blood 01/09/2025 12:4 9 AM CDT 01/09/2025 12:57 AM CDT Yessenia Dominguez MD LAB BLOOD ORDERABLES Final Result HERBER REINACH [address] [facility]. [facility] [place] [address] * (ABNORMAL) POCT glucose (01/09/2025 12:16 AM CDT) Glucose, POC 322(H) 70 - 199 mg/dL Comment: Interpretive Data Glucose is assumed to be non-fasting. Fasting Glucose reference ranges are: 0 - 150 years: 70 mg/dL - 99 mg/dL Current interpretive data was last revised on 2013. POC Device Number [id number] HERBER MARCANO Blood 01/09/2025 12:1 6 AM CDT 01/09/2025 12:16 AM CDT Yessenia Dominguez MD LAB POCT ORDERABLES - DEVIC E Final Result Performing Organization Address [facility] Co de Phone Number [facility] [address] [facility]. [facility] [place] [address] * (ABNORMAL) POCT glucose (01/08/2025 10:21 PM CDT) Glucose, POC 399(H) 70 - 199 mg/dL Comment: Interpretive Data Glucose is assumed to be non-fasting. Fasting Glucose reference ranges are: 0 - 150 years: 70 mg/dL - 99 mg/dL Current interpretive data was last revised on 2013. POC Device Number [id number] HERBER MARCANO Blood 01/08/2025 10:2 1 PM CDT 01/08/2025 10:21 PM CDT Yessenia Dominguez MD LAB POCT ORDERABLES - DEVIC E Final Result Performing Organization Address City/[facility] Co de Phone Number [facility] J[facility]ZW[facility] [address] [facility]. [facility] [place] [address] * XR Chest 1 View (01/08/2025 9:59 [...] MD LAB BLOOD ORDERABLES F inal Result [facility] [address] [facility]. [place] [address] * Differential, auto (01/08/2025 8:57 PM CDT) [...] 2017. Imm gran pct 0.3 % [facility] Comment: Interpretive Data Percent cell count reference ranges are not reported, since discordance with absolute values may lead to misinterpretation of CBC data. Current Interpretive Data was last revised on 2017. Lymphocyte pct 27.3 % [facility] Comment: Interpretive Data Percent cell count reference ranges are not reported, since discordance with absolute values may lead to misinterpretation of CBC data. Current Interpretive Data was last revised on 2017. Monocyte pct 10.7 % [facility] Comment: Interpretive Data Percent cell count reference ranges are not reported, since discordance with absolute values may lead to misinterpretation of CBC data. Current Interpretive Data was last revised on 2017. Eosinophil pct 3.6 % [facility] Comment: Interpretive Data Percent cell count reference ranges are not reported, since discordance with absolute values may lead to misinterpretation of CBC data. Current Interpretive Data was last revised on 2017. Basophil pct 0.2 % [facility] Comment: Interpretive Data Percent cell count reference ranges are not reported, since discordance with absolute values may lead to misinterpretation of CBC data. Current Interpretive Data was last revised on 2017. Blood 01/08/2025 8:57 PM CDT 01/08/2025 9:02 PM CDT Yareli Mitchell MD LAB BLOOD ORDERABLES F inal Result Performing Organization Address [facility]/ZIP Co de Phone Number [facility] [address] [employer] [place] [place] [address] * Beta-hydroxybutyrate (01/08/2025 8:57 PM CDT) Pathologist [facility] Beta-Hydroxybut yrate <0.5 0.0 - 0.5 mmol/L Blood 01/08/2025 8:57 PM CDT 01/08/2025 9:02 PM CDT Yessenia Dominguez MD LAB BLOOD ORDERABLES Final Result Performing Organization Address City/[facility]/ZIP Co de Phone Number [facility] [address] [facility] [place] [address] * (ABNORMAL) CBC with auto differential (01/08/2025 8:57 PM CDT) WBC 6.16 3.80 - 9.90 K/cumm Hgb 9.2(L) 11.9 - 15.5 g/dL [facility] Hct 29.0(L) 35.6 - 45.5 % [facility] Plt 320 150 - 400 K/cumm [facility] MPV 10.6 9.1 - 12.3 fL [facility] RBC 3.25(L) 3.90 - 5.20 M/cumm [facility] MCV 89.2 81.3 - 96.4 fL [facility] MCH 28.3 27.1 - 33.3 pg [facility] MCHC 31.7(L) 32.3 - 35.7 g/dL [facility] RDW CV 14.9 11.1 - 14.9 % [facility] RDW SD 48.1 35.7 - 48.1 fL [facility] NRBC abs 0.00 0.00 - 0.01 K/cumm [facility] Blood 01/08/2025 8:57 PM CDT 01/08/2025 9:02 PM CDT Yareli Mitchell MD LAB BLOOD ORDERABLES F inal Result Performing Organization Address [facility] de Phone Number [facility] [address] [facility] [address] [place], [place] [id number] * Protime-INR (01/08/2025 8:57 PM CDT) PT 11.7 10.2 - 13.5 sec INR 1.04 0.90 - 1.20 [facility] Comment: Interpretive data Oral anticoagulant therapeutic ranges: Venous thromboembolism prophylaxis or treatment: 2.0-3.0 CARDIOLOGY Standard range: 2.0-3.0 High-intensity range: 2.5-3.5 Refer to indication-specific guidelines for appropriate target ranges for prosthetic heart valve replacement. Current interpretive data was last revised on 2019. Blood 01/08/2025 8:57 PM CDT 01/08/2025 9:02 PM CDT Yareli Mitchell MD LAB BLOOD ORDERABLES F inal Result Performing Organization Address [facility] Co de Phone Number [facility] [address] [address] [employer]. [place] [address] * (ABNORMAL) Renal function panel (01/08/2025 8:57 PM CDT) Sodium 136 135 - 145 mmol/L Potassium, pl 5.1(H) 3.3 - 4.9 mmol/L [facility] Chloride 99 97 - 110 mmol/L [facility] CO2 19(L) 22 - 32 mmol/L [facility] Anion gap 19(H) 2 - 15 mmol/L [facility] BUN 50(H) 6 - 25 mg/dL [facility] Creatinine 8.90(H) 0.60 - 1.10 mg/dL [facility] Glucose 420(H) 70 - 199 mg/dL [facility] Comment: [...] 2022. Calcium 7.7(L) 8.5 - 10.3 mg/dL [facility] Phosphorus, pl 6.6(H) 2.3 - 4.5 mg/dL [facility] Albumin 4.0 3.5 - 5.0 g/dL [facility] Blood 01/08/2025 8:57 PM CDT 01/08/2025 9:02 PM CDT us Yareli Mitchell MD LAB BLOOD ORDERABLES F inal Result Performing Organization Address [facility] Co de Phone Number [facility] [phone] [employer]. [place] [address] * (ABNORMAL) POCT glucose (01/08/2025 7:44 PM CDT) Glucose, POC 320(H) 70 - 199 mg/dL Comment: Interpretive Data Glucose is assumed to be non-fasting. Fasting Glucose reference ranges are: 0 - 150 years: 70 mg/dL - 99 mg/dL Current interpretive data was last revised on 2013. POC Device Number [id number] 9 [facility] Blood 01/08/2025 7:44 PM CDT 01/08/2025 7:44 PM CDT Yessenia Dominguez MD LAB POCT ORDERABLES - DEVIC E Final Result Performing Organization Address [facility] de Phone Number [facility] [address] [employer] [place], [place] [id number] * (ABNORMAL) POCT glucose (01/08/2025 6:43 PM CDT) Glucose, POC 320(H) 70 - 199 mg/dL Comment: Interpretive Data Glucose is assumed to be non-fasting. Fasting Glucose reference ranges are: 0 - 150 years: 70 mg/dL - 99 mg/dL Current interpretive data was last revised on 2013. POC Device Number [id number] [facility] Blood 01/08/2025 6:43 PM CDT 01/08/2025 6:43 PM CDT Viraj Olivo MD LAB POCT ORDERABLES - DEVICE Fin al Result Performing Organization Address [facility] Co de Phone Number [facility] [address] [facility] [address] [place], [place] [id number] * XR Foot Right 3 or More [...] severe secondary right ankle osteoarthritis. Small effusion. Pgdm-fp-ugbyhftp pes planus with old healed midfoot fractures, polyarticular midfoot osteoarthritis and fragmentation. Soft tissue swelling is present. Arterial atherosclerosis is noted. Mild 1st metatarsophalangeal joint osteoarthritis. IMPRESSION: 1. Old healed distal right tibia and fibular fractures with hindfoot valgus and moderate to severe secondary right ankle osteoarthritis. 2. Bqxh-xn-mjwxbqis right pes planus with old healed midfoot fractures, polyarticular midfoot osteoarthritis and fragmentation. THIS IS AN ELECTRONICALLY VERIFIED FINAL REPORT 01/09/2025 4:28 PM - Electronically signed by Andrei Nguyen M.D. T: Report ID: [id number] Reading Location: [id number] Procedure Note Andrei Nguyen MD - 01/09/2025 [...] severe secondary right ankle osteoarthritis. Small effusion. Nuia-zm-pyluuozk pes planus with oldhealed midfoot fractures, polyarticular midfoot osteoarthritis and fragmentation. Soft tissue swelling is present. Arterial atherosclerosis is noted. Lxsc9hp metatarsophalangeal joint osteoarthritis. IMPRESSION: 1. Old healed distal right tibia and fibular fractures with hindfootvalgus and moderate to severe secondary right ankle osteoarthritis. 2. Eedc-zd-pkvsfnnq right pes planus with old healed midfoot fractures, polyarticular midfoot osteoarthritis and fragmentation. THIS IS AN ELECTRONICALLY VERIFIED FINAL REPORT 01/09/2025 4:28 PM - Electronically signed by Andrei Nguyen M.D. T: Report ID: [id number] Reading Location: [id number] us Raul Clark DO IMG XR PROCEDURES [...] severe secondary right ankle osteoarthritis. Small effusion. Qmvv-ts-shqqeofp pes planus with old healed midfoot fractures, polyarticular midfoot osteoarthritis and fragmentation. Soft tissue swelling is present. Arterial atherosclerosis is noted. Mild 1st metatarsophalangeal joint osteoarthritis. IMPRESSION: 1. Old healed distal right tibia and fibular fractures with hindfoot valgus and moderate to severe secondary right ankle osteoarthritis. 2. Uiuc-zp-jzlpspgs right pes planus with old healed midfoot fractures, polyarticular midfoot osteoarthritis and fragmentation. THIS IS AN ELECTRONICALLY VERIFIED FINAL REPORT 01/09/2025 4:28 PM - Electronically signed by Andrei Nguyen M.D. T: Report ID: [id number] Reading Location: [id number] Procedure Note Andrei Nguyen MD - 01/09/2025 [...] severe secondary right ankle osteoarthritis. Small effusion. Cnju-ak-davbjtro pes planus with oldhealed midfoot fractures, polyarticular midfoot osteoarthritis and fragmentation. Soft tissue swelling is present. Arterial atherosclerosis is noted. Oduv3ez metatarsophalangeal joint osteoarthritis. IMPRESSION: 1. Old healed distal right tibia and fibular fractures with hindfootvalgus and moderate to severe secondary right ankle osteoarthritis. 2. Kqbn-rz-klvkdmvo right pes planus with old healed midfoot fractures, polyarticular midfoot osteoarthritis and fragmentation. THIS IS AN ELECTRONICALLY VERIFIED FINAL REPORT 01/09/2025 4:28 PM - Electronically signed by Andrei Nguyen M.D. T: Report ID: [id number] Reading Location: [id number] us Raul Clark DO IMG XR PROCEDURES Final Result * POCT glucose (12/26/2024 9:47 AM CDT) Glucose, POC 197 70 - 199 mg/dL Blood 12/26/2024 9:47 AM CDT 12/26/2024 9:47 AM CDT us Young Vasquez MD LAB POCT ORDERABLES - DEVICE Final Result Performing Organization Address City/State/[facility] Co de Phone Number [facility] [place] [address] * Colonoscopy (12/26/2024 9:16 AM CDT) Anatomical Region Laterality Modality Other Narrative Procedure Note Young Vasquez MD - 12/26/2024 9:16 AM CDT [facility] ENDOSCOPY [facility] Patient Name: Brissa Angela Procedure Date: 12/26/2024 9:16 AM Date of : 1995 Admit Type: Outpatient Age: 29 Gender: Female Attending MD: Young Vasquez M.D., Room: [facility] ENDOSCOPY ROOM 8 Note Status: [...] The scope was passed under direct vision.The [facility] [id number] endoscope was introduced through the anus and [...] MD ENDOSCOPY PROCEDURES F inal Result * MN AN ELECTIVE ENDOTRACHEAL AIRWAY, MN AN PROCEDURE PLACEHOLDER (12/26/2024 9:02 AM CDT) Narrative Federico Beltran CRNA - 12/26/2024 9:02 AM CDT Federico Beltran CRNA 12/26/2024 9:03 AM Airway Patient location: OR Urgency: elective Indications for airway management: anesthesia Difficult airway: no Staff: Supervising provider: Dylan Frias MD Placed by: LOG WASHER: Federico Beltran CRNA Emergent airway documentation: Risks [...] Biopsy) 12/26/2024 9:25 AM CDT Narrative PATHOLOGY [facility] - 12/27/2024 6:13 PM CDT EPIC results best viewed via link to PDF [facility] [place] [address] Note to Patients: This report may contain [...] Gender: F : 1995 (Age: 29) Address: [address] [place], [place] [id number] Hospital #: [id number] Taken:12/26/2024 Received:12/26/2024 Reported: 12/27/2024 Patient Type: [facility] Service: Gastro Location: Physician(s): Young Vasquez [...] in greatest dimension. Labeled E1. Jar 0. elsw/12/26/2024 11:42 PA(s): Samia Gtz By this signature, I attest that the above diagnosis is based upon my personal examination of the slides(and/or other material). Addenda/Procedures The performance characteristics of some immunohistochemical stains, fluorescence in-situ hybridization tests and immunophenotyping by flow cytometry cited in this report (if any) were determined by the Surgical Pathology and Flow Cytometry Departments at [facility] as part of an ongoing manufacturing quality engineer program and in compliance with federally mandated [...] Surgical Pathology and Flow Cytometry Departments of [facility]. It has not been cleared or approved by the U. S. Food and Drug Administration. IMAGES AND SCANNED DOCUMENTS, IF INCLUDED, ONLY VIEWABLE IN PDF VERSION OF REPORT Young Vasquez MD LAB PATHOLOGY ORDERABL ES Final Result PATHOLOGY [facility] 3rd Floor [place], [place] [phone] * EGD (12/26/2024 8:55 AM CDT) Anatomical Region Laterality Modality Other Narrative Procedure Note Young Vasquez MD - 12/26/2024 8:55 AM CDT [facility] Patient Name: Brissa Angela Procedure Date: 12/26/2024 8:55 AM Date of : 1995 Admit Type: Outpatient Age: 29 Gender: Female Attending MD: Young Vasquez M.D., Room: [facility] ENDOSCOPY ROOM 8 Note Status: [...] passed under direct vision. The GIF [id number] endoscope was introduced through the mouth, and [...] HCG, ur, POC Negative Negative Lot Number [id number] QC Backgroud Clear Acceptable QC Control Line Acceptable Urine 12/26/2024 8:43 AM CDT Young Vasquez MD POINT OF CARE TEST ORD ERABLES Final Result * POCT glucose (12/26/2024 8:41 AM CDT) Glucose, POC 102 70 - 199 mg/dL Blood 12/26/2024 8:41 AM CDT 12/26/2024 8:41 AM CDT Young Vasquez MD LAB POCT ORDERABLES - DEVICE Final Result [facility] [place] [address] * (ABNORMAL) POCT glucose (12/26/2024 7:53 AM CDT) Glucose, POC 67(L) 70 - 199 mg/dL Blood 12/26/2024 7:53 AM CDT 12/26/2024 7:53 AM CDT Young Vasquez MD LAB POCT ORDERABLES - DEVICE Final Result Performing Organization Address [facility] Co de Phone Number [facility] [place] [address] * (ABNORMAL) eGFR (12/26/2024 7:03 AM CDT) Pathologist [facility] eGFR 8(L) >=60 mL/min/1. 73 m2 Comment: [...] ORDERABLES F inal Result Performing Organization Address City/[facility]/ZIP Co de Phone Number [facility] [place] [address] * (ABNORMAL) Comprehensive metabolic panel (12/26/2024 7:03 AM CDT) Sodium 129(L) 135 - 145 mmol/L Potassium, pl 4.8 3.3 - 4.9 mmol/L [facility] Comment:Hemolyzed; Potassium value may be falsely elevated by as much as 0.6-1.0 mmol/L. Suggest redraw and reanalysis. Chloride 94(L) 97 - 110 mmol/L [facility] CO2 25 22 - 32 mmol/L [facility] Anion gap 10 2 - 15 mmol/L [facility] BUN 18 6 - 25 mg/dL [facility] Creatinine 6.44(H) 0.60 - 1.10 mg/dL [facility] Glucose 110 70 - 199 mg/dL [facility] Comment: Interpretive Data Fasting glucose >/= [...] Calcium 8.2(L) 8.5 - 10.3 mg/dL [facility] Bilirubin, total 0.4 0.1 - 1.2 mg/dL [facility] Protein, pl 7.9 6.5 - 8.5 g/dL [facility] Albumin 3.7 3.5 - 5.0 g/dL [facility] Alk phos 181(H) 40 - 130 Units/L [facility] ALT 18 7 - 45 Units/L [facility] AST 31 10 - 45 Units/L [facility] Comment:Hemolyzed; result ma y be falsely elevated Blood 12/26/2024 7:03 AM CDT 12/26/2024 7:04 AM CDT Young Vasquez MD LAB BLOOD ORDERABLES F inal Result [facility] [place] [address] * CT Abdomen and Pelvis Enterography W [...] signed by Mahin CORDOVA T: Report ID: [id number] Reading Location: [id number] Procedure Note Mahin Balderrama MD - 12/22/2024 [...] signed by Mahin CORDOVA T: Report ID: [id number] Reading Location: [id number] Raul Clark DO IMG CT PROCEDURES Final [...] signed by Mahin CORDOVA T: Report ID: [id number] Reading Location: [id number] Procedure Note Mahin Balderrama MD - 12/22/2024 [...] signed by Mahin CORDOVA T: Report ID: [id number] Reading Location: [id number] Raul Clark DO IMG CT PROCEDURES Final [...] by Andrei Nguyen M.D. T: Report ID: [id number] Reading Location: [id number] Procedure Note Andrei Nguyen MD - 12/10/2024 [...] by Andrei Nguyen M.D. T: Report ID: [id number] Reading Location: [id number] us Raul Clark DO IMG XR PROCEDURES [...] by Andrei Nguyen M.D. T: Report ID: [id number] Reading Location: [id number] Procedure Note Andrei Nguyen MD - 12/10/2024 [...] by Andrei Nguyen M.D. T: Report ID: [id number] Reading Location: [id number] Raul Clark DO IMG XR PROCEDURES Final Result * XR Ankle Right 3+ Vw (11/21/2024 5:34 PM CDT) Anatomical Region Laterality Modality Lower Extremities, Ankle Right Radiogr aphic Imaging Edgardo Aldridge MD IMG XR PROCEDURES Final Resul t * XR Outside Reference (11/16/2024 12:05 AM CDT) Narrative RAD_CLARIO_MHB_MHE - 12/07/2024 1:05 PM CDT This order has been auto-finalized and does not contain a result. Provider Transcribed Order IMG XR PROCEDURES Fin al Result Performing Organization Address [facility] Co de Phone Number [email or web address] * SCAN - RADIOLOGY/IMAGING (11/16/2024) Anatomical Region Laterality Modality Other Edgardo Aldridge MD Final Result * XR Outside Reference (11/16/2024 12:00 AM CDT) Narrative RAD_CLARIO_MHB_MHE - 12/07/2024 1:05 PM CDT This order has been auto-finalized and does not contain a result. us Provider Transcribed Order IMG XR PROCEDURES Fin al Result Performing Organization Address [facility]/ZIP Co de Phone Number [email or web address] * CT Chest WO Contrast (11/11/2024) Anatomical Region Laterality Modality Body N/A Computed Tomogra phy Historical Provider IMG CT PROCEDURES Final R esult * (ABNORMAL) POCT glucose (11/05/2024 7:20 AM CDT) Glucose, POC 366(H) 70 - 199 mg/dL Blood 11/05/2024 7:20 AM CDT 11/05/2024 7:20 AM CDT Dutch Blake MD LAB POCT ORDERABLES - DEVICE Final Result [facility] [place] [address] * POCT glucose (11/05/2024 2:37 AM CDT) Glucose, POC 175 70 - 199 mg/dL Blood 11/05/2024 2:37 AM CDT 11/05/2024 2:37 AM CDT Dutch Blake MD LAB POCT ORDERABLES - DEVICE Final Result Performing Organization Address City/[facility]/ZIP Co de Phone Number [facility] [place] [address] * (ABNORMAL) eGFR (11/04/2024 9:18 PM CDT) [...] MD PhD LAB BLOOD ORDERABLES Final Result [facility] [place] [address] * Differential, auto (11/04/2024 9:18 PM CDT) Neutrophil abs 5.81 1.50 - 6.50 K/cumm Imm gran abs 0.04 0.00 - 0.10 K/cumm [facility] Lymphocyte abs 1.45 0.80 - 3.30 K/cumm [facility] Monocyte abs 0.63 0.20 - 0.80 K/cumm [facility] Eosinophil abs 0.33 0.00 - 0.50 K/cumm [facility] Basophil abs 0.02 0.00 - 0.10 K/cumm [facility] Neutrophil pct 70.2 % [facility] Comment: Interpretive Data Percent cell count reference ranges are not reported, since discordance with absolute values may lead to misinterpretation of CBC data. Current Interpretive Data was last revised on 2017. Imm gran pct 0.5 % [facility] Comment: Interpretive Data Percent cell count reference ranges are not reported, since discordance with absolute values may lead to misinterpretation of CBC data. Current Interpretive Data was last revised on 2017. Lymphocyte pct 17.5 % [facility] Comment: Interpretive Data Percent cell count reference ranges are not reported, since discordance with absolute values may lead to misinterpretation of CBC data. Current Interpretive Data was last revised on 2017. Monocyte pct 7.6 % [facility] Comment: Interpretive Data Percent cell count reference ranges are not reported, since discordance with absolute values may lead to misinterpretation of CBC data. Current Interpretive Data was last revised on 2017. Eosinophil pct 4.0 % [facility] Comment: Interpretive Data Percent cell count reference ranges are not reported, since discordance with absolute values may lead to misinterpretation of CBC data. Current Interpretive Data was last revised on 2017. Basophil pct 0.2 % [facility] Comment: Interpretive Data Percent cell count reference ranges are not reported, since discordance with absolute values may lead to misinterpretation of CBC data. Current Interpretive Data was last revised on 2017. Blood 11/04/2024 9:18 PM CDT 11/04/2024 10:29 PM CDT Luciano Hayes MD PhD LAB BLOOD ORDERABLES Final Result [facility] [place] [address] * (ABNORMAL) CBC with auto differential (11/04/2024 9:18 PM CDT) WBC 8.28 3.80 - 9.90 K/cumm Hgb 8.8(L) 11.9 - 15.5 g/dL [facility] Hct 27.1(L) 35.6 - 45.5 % [facility] Plt 218 150 - 400 K/cumm [facility] MPV 11.1 9.1 - 12.3 fL [facility] RBC 3.15(L) 3.90 - 5.20 M/cumm [facility] MCV 86.0 81.3 - 96.4 fL [facility] MCH 27.9 27.1 - 33.3 pg [facility] MCHC 32.5 32.3 - 35.7 g/dL [facility] RDW CV 16.2(H) 11.1 - 14.9 % [facility] RDW SD 51.3(H) 35.7 - 48.1 fL [facility] NRBC abs 0.00 0.00 - 0.01 K/cumm [facility] Blood 11/04/2024 9:18 PM CDT 11/04/2024 10:29 PM CDT Luciano Hayes MD PhD LAB BLOOD ORDERABLES Final Result Performing Organization Address City/[facility]/ZIP Co de Phone Number [facility] [place] [address] * (ABNORMAL) Basic metabolic panel (11/04/2024 9:18 PM CDT) Sodium 141 135 - 145 mmol/L Potassium, pl 4.2 3.3 - 4.9 mmol/L [facility] Chloride 100 97 - 110 mmol/L [facility] CO2 30 22 - 32 mmol/L [facility] Anion gap 11 2 - 15 mmol/L [facility] BUN 13 6 - 25 mg/dL [facility] Creatinine 3.27(H) 0.60 - 1.10 mg/dL [facility] Glucose 241(H) 70 - 199 mg/dL [facility] Comment: Interpretive Data Fasting glucose >/= 126 [...] 2022. Calcium 8.2(L) 8.5 - 10.3 mg/dL [facility] Blood 11/04/2024 9:18 PM CDT 11/04/2024 10:06 PM CDT Luciano Hayes MD PhD LAB BLOOD ORDERABLES Final Result Performing Organization Address City/[facility] Co de Phone Number [facility] [place] [address] * (ABNORMAL) POCT glucose (11/04/2024 9:16 PM CDT) Glucose, POC 231(H) 70 - 199 mg/dL Blood 11/04/2024 9:16 PM CDT 11/04/2024 9:16 PM CDT Dutch Blake MD LAB POCT ORDERABLES - DEVICE Final Result Performing Organization Address [facility] [place] [address] * (ABNORMAL) POCT glucose (11/04/2024 6:50 PM CDT) Glucose, POC 380(H) 70 - 199 mg/dL Blood 11/04/2024 6:50 PM CDT 11/04/2024 6:50 PM CDT Dutch Blake MD LAB POCT ORDERABLES - DEVICE Final Result Performing Organization Address [facility] Co de Phone Number [facility] [place] [address] * POCT glucose (11/04/2024 3:55 PM CDT) Glucose, POC 184 70 - 199 mg/dL Blood 11/04/2024 3:55 PM CDT 11/04/2024 3:55 PM CDT Dutch Blake MD LAB POCT ORDERABLES - DEVICE Final Result Performing Organization Address City/[facility] Co de Phone Number [facility] [place] [address] * POCT glucose (11/04/2024 12:51 PM CDT) Glucose, POC 122 70 - 199 mg/dL Blood 11/04/2024 12:5 1 PM CDT 11/04/2024 12:51 PM CDT Dutch Blake MD LAB POCT ORDERABLES - DEVICE Final Result Performing Organization Address [facility] de Phone Number [facility] [place] [address] * POCT glucose (11/04/2024 7:16 AM CDT) Glucose, POC 107 70 - 199 mg/dL Blood 11/04/2024 7:16 AM CDT 11/04/2024 7:16 AM CDT Dutch Blake MD LAB POCT ORDERABLES - DEVICE Final Result Performing Organization Address [facility] de Phone Number [facility] [place] [address] * POCT glucose (11/04/2024 2:03 AM CDT) Glucose, POC 145 70 - 199 mg/dL Comment:Glu2: RN/MD Notified Glucose comment 1 Glu2: RN/MD Notified [facility] Blood 11/04/2024 2:03 AM CDT 11/04/2024 2:03 AM CDT Dutch Blake MD LAB POCT ORDERABLES - DEVICE Final Result Performing Organization Address [facility] de Phone Number [facility] [place] [address] * (ABNORMAL) eGFR (11/03/2024 10:59 PM CDT) Pathologist [facility] eGFR 9(L) >=60 mL/min/1. 73 m2 [...] MD PhD LAB BLOOD ORDERABLES Final Result [facility] [place] [address] * Differential, auto (11/03/2024 10:59 PM CDT) Neutrophil abs 3.37 1.50 - 6.50 K/cumm Imm gran abs 0.01 0.00 - 0.10 K/cumm [facility] Lymphocyte abs 2.13 0.80 - 3.30 K/cumm [facility] Monocyte abs 0.62 0.20 - 0.80 K/cumm [facility] Eosinophil abs 0.34 0.00 - 0.50 K/cumm [facility] Basophil abs 0.02 0.00 - 0.10 K/cumm [facility] Neutrophil pct 51.9 % [facility] Comment: Interpretive Data Percent cell count reference ranges are not reported, since discordance with absolute values may lead to misinterpretation of CBC data. Current Interpretive Data was last revised on 2017. Imm gran pct 0.2 % [facility] Comment: Interpretive Data Percent cell count reference ranges are not reported, since discordance with absolute values may lead to misinterpretation of CBC data. Current Interpretive Data was last revised on 2017. Lymphocyte pct 32.8 % [facility] Comment: Interpretive Data Percent cell count reference ranges are not reported, since discordance with absolute values may lead to misinterpretation of CBC data. Current Interpretive Data was last revised on 2017. Monocyte pct 9.6 % [facility] Comment: Interpretive Data Percent cell count reference ranges are not reported, since discordance with absolute values may lead to misinterpretation of CBC data. Current Interpretive Data was last revised on 2017. Eosinophil pct 5.2 % [facility] Comment: Interpretive Data Percent cell count reference ranges are not reported, since discordance with absolute values may lead to misinterpretation of CBC data. Current Interpretive Data was last revised on 2017. Basophil pct 0.3 % [facility] Comment: Interpretive Data Percent cell count reference ranges are not reported, since discordance with absolute values may lead to misinterpretation of CBC data. Current Interpretive Data was last revised on 2017. Blood 11/03/2024 10:5 9 PM CDT 11/04/2024 12:07 AM CDT us Luciano Hayes MD PhD LAB BLOOD ORDERABLES Final Result [facility] [place] [address] * (ABNORMAL) CBC with auto differential (11/03/2024 10:59 PM CDT) WBC 6.49 3.80 - 9.90 K/cumm Hgb 8.5(L) 11.9 - 15.5 g/dL [facility] Hct 27.2(L) 35.6 - 45.5 % [facility] Plt 219 150 - 400 K/cumm [facility] MPV 11.1 9.1 - 12.3 fL [facility] RBC 3.04(L) 3.90 - 5.20 M/cumm [facility] MCV 89.5 81.3 - 96.4 fL [facility] MCH 28.0 27.1 - 33.3 pg [facility] MCHC 31.3(L) 32.3 - 35.7 g/dL [facility] RDW CV 16.4(H) 11.1 - 14.9 % [facility] RDW SD 53.7(H) 35.7 - 48.1 fL [facility] NRBC abs 0.00 0.00 - 0.01 K/cumm [facility] Blood 11/03/2024 10:5 9 PM CDT 11/04/2024 12:07 AM CDT Luciano Hayes MD PhD LAB BLOOD ORDERABLES Final Result [facility] [place] [address] * (ABNORMAL) Basic metabolic panel (11/03/2024 10:59 PM CDT) Sodium 141 135 - 145 mmol/L Potassium, pl 4.3 3.3 - 4.9 mmol/L [facility] Chloride 103 97 - 110 mmol/L [facility] CO2 28 22 - 32 mmol/L [facility] Anion gap 10 2 - 15 mmol/L [facility] BUN 38(H) 6 - 25 mg/dL [facility] Creatinine 6.03(H) 0.60 - 1.10 mg/dL [facility] Glucose 224(H) 70 - 199 mg/dL [facility] Comment: Interpretive Data Fasting glucose >/= 126 [...] 2022. Calcium 7.9(L) 8.5 - 10.3 mg/dL [facility] Blood 11/03/2024 10:5 9 PM CDT 11/04/2024 12:06 AM CDT us Luciano Hayes MD PhD LAB BLOOD ORDERABLES Final Result Performing Organization Address City/[facility] Co de Phone Number [facility] [place] [address] * (ABNORMAL) POCT glucose (11/03/2024 8:37 PM CDT) Glucose, POC 254(H) 70 - 199 mg/dL Comment:Glu2: RN/MD Notified Glucose comment 1 Glu2: RN/MD Notified [facility] Blood 11/03/2024 8:37 PM CDT 11/03/2024 8:37 PM CDT us Dutch Blake MD LAB POCT ORDERABLES - DEVICE Final Result Performing Organization Address [facility] de Phone Number [facility] [place] [address] * (ABNORMAL) POCT glucose (11/03/2024 4:17 PM CDT) Glucose, POC 290(H) 70 - 199 mg/dL Blood 11/03/2024 4:17 PM CDT 11/03/2024 4:17 PM CDT Dutch Blake MD LAB POCT ORDERABLES - DEVICE Final Result Performing Organization Address [facility] de Phone Number [facility] [place] [address] * (ABNORMAL) POCT glucose (11/03/2024 11:20 AM CDT) Glucose, POC 222(H) 70 - 199 mg/dL Comment:Glu2: RN/MD Notified Glucose comment 1 Glu2: RN/MD Notified [facility] Blood 11/03/2024 11:2 0 AM CDT 11/03/2024 11:20 AM CDT Dutch Blake MD LAB POCT ORDERABLES - DEVICE Final Result Performing Organization Address City/[facility] Co de Phone Number [facility] [place] [address] * (ABNORMAL) POCT glucose (11/03/2024 9:35 AM CDT) Glucose, POC 224(H) 70 - 199 mg/dL Blood 11/03/2024 9:35 AM CDT 11/03/2024 9:35 AM CDT Dutch Blake MD LAB POCT ORDERABLES - DEVICE Final Result Performing Organization Address [facility] de Phone Number [facility] [place] [address] * (ABNORMAL) POCT glucose (11/03/2024 8:21 AM CDT) Glucose, POC 64(L) 70 - 199 mg/dL Blood 11/03/2024 8:21 AM CDT 11/03/2024 8:21 AM CDT Dutch Blake MD LAB POCT ORDERABLES - DEVICE Final Result Performing Organization Address [facility] de Phone Number [facility] [place] [address] * POCT glucose (11/03/2024 7:21 AM CDT) Glucose, POC 125 70 - 199 mg/dL Blood 11/03/2024 7:21 AM CDT 11/03/2024 7:21 AM CDT us Dutch Blake MD LAB POCT ORDERABLES - DEVICE Final Result Performing Organization Address [facility] Co de Phone Number [facility] [place] [address] * (ABNORMAL) POCT glucose (11/03/2024 6:49 AM CDT) Glucose, POC 231(H) 70 - 199 mg/dL Blood 11/03/2024 6:49 AM CDT 11/03/2024 6:49 AM CDT us Dutch Blake MD LAB POCT ORDERABLES - DEVICE Final Result Performing Organization Address [facility] Co de Phone Number [facility] [place] [address] * (ABNORMAL) POCT glucose (11/03/2024 5:37 AM CDT) Glucose, POC 467(C) 70 - 199 mg/dL Comment: Glu2: RN/MD Notified Critical Value Noted Glucose comment 1 Glu2: RN/MD Notified [facility] Glucose comment 2 Critical Value Noted [facility] Blood 11/03/2024 5:37 AM CDT 11/03/2024 5:37 AM CDT us Dutch Blake MD LAB POCT ORDERABLES - DEVICE Final Result Performing Organization Address [facility] [place] [address] * (ABNORMAL) POCT glucose (11/03/2024 3:39 AM CDT) Glucose, POC 536(C) 70 - 199 mg/dL Comment: Glu2: Critical Value Noted RN/MD Notified Glucose comment 2 RN/MD Notified [facility] Blood 11/03/2024 3:39 AM CDT 11/03/2024 3:39 AM CDT Dutch Blake MD LAB POCT ORDERABLES - DEVICE Final Result Performing Organization Address City/[facility]/ZIP Co de Phone Number [facility] [place] [address] * (ABNORMAL) eGFR (11/03/2024 2:25 AM CDT) [facility] eGFR 14(L) >=60 mL/min/1. 73 m2 Comment: [...] BLOOD ORDERABLES Final Result Performing Organization Address City/[facility]/ZIP Co de Phone Number [facility] [place] [address] * Differential, auto (11/03/2024 2:25 AM CDT) Neutrophil abs 3.18 1.50 - 6.50 K/cumm Imm gran abs 0.02 0.00 - 0.10 K/cumm [facility] Lymphocyte abs 1.48 0.80 - 3.30 K/cumm [facility] Monocyte abs 0.57 0.20 - 0.80 K/cumm [facility] Eosinophil abs 0.21 0.00 - 0.50 K/cumm [facility] Basophil abs 0.01 0.00 - 0.10 K/cumm [facility] Neutrophil pct 58.1 % [facility] Comment: Interpretive Data Percent cell count reference ranges are not reported, since discordance with absolute values may lead to misinterpretation of CBC data. Current Interpretive Data was last revised on 2017. Imm gran pct 0.4 % [facility] Comment: Interpretive Data Percent cell count reference ranges are not reported, since discordance with absolute values may lead to misinterpretation of CBC data. Current Interpretive Data was last revised on 2017. Lymphocyte pct 27.1 % [facility] Comment: Interpretive Data Percent cell count reference ranges are not reported, since discordance with absolute values may lead to misinterpretation of CBC data. Current Interpretive Data was last revised on 2017. Monocyte pct 10.4 % [facility] Comment: Interpretive Data Percent cell count reference ranges are not reported, since discordance with absolute values may lead to misinterpretation of CBC data. Current Interpretive Data was last revised on 2017. Eosinophil pct 3.8 % [facility] Comment: Interpretive Data Percent cell count reference ranges are not reported, since discordance with absolute values may lead to misinterpretation of CBC data. Current Interpretive Data was last revised on 2017. Basophil pct 0.2 % [facility] Comment: Interpretive Data Percent cell count reference ranges are not reported, since discordance with absolute values may lead to misinterpretation of CBC data. Current Interpretive Data was last revised on 2017. Blood 11/03/2024 2:25 AM CDT 11/03/2024 4:01 AM CDT Luciano Hayes MD PhD LAB BLOOD ORDERABLES Final Result [facility] [place] [address] * Critical Result Callback Chemistry (11/03/2024 2:25 AM CDT) Date Notified [id number] Time Notified 435 [facility] TestName Glucose [facility] Called/Read Back Araon Baker [facility] Credentials RN [facility] Called By laurieg [facility] Blood 11/03/2024 2:25 AM CDT 11/03/2024 4:02 AM CDT Luciano Hayes MD PhD LAB BLOOD ORDERABLES Final Result Performing Organization Address [facility] Co de Phone Number [facility] [place] [address] * (ABNORMAL) CBC with auto differential (11/03/2024 2:25 AM CDT) WBC 5.47 3.80 - 9.90 K/cumm Hgb 8.9(L) 11.9 - 15.5 g/dL [facility] Hct 28.5(L) 35.6 - 45.5 % [facility] Plt 233 150 - 400 K/cumm [facility] MPV 10.9 9.1 - 12.3 fL [facility] RBC 3.23(L) 3.90 - 5.20 M/cumm [facility] MCV 88.2 81.3 - 96.4 fL [facility] MCH 27.6 27.1 - 33.3 pg [facility] MCHC 31.2(L) 32.3 - 35.7 g/dL [facility] RDW CV 16.4(H) 11.1 - 14.9 % [facility] RDW SD 53.1(H) 35.7 - 48.1 fL [facility] NRBC abs 0.00 0.00 - 0.01 K/cumm [facility] Blood 11/03/2024 2:25 AM CDT 11/03/2024 4:01 AM CDT Luciano Hayes MD PhD LAB BLOOD ORDERABLES Final Result [facility] [place] [address] * (ABNORMAL) Basic metabolic panel (11/03/2024 2:25 AM CDT) Sodium 135 135 - 145 mmol/L Comment:Sample investigated and found to be analytically accurate. If results do not match clinical presentation, improper collection (e.g., IV fluid contamination, improper tube type, mislabel) should be considered and re-collection recommended. Potassium, pl 4.7 3.3 - 4.9 mmol/L [facility] Comment:Sample investigated and found to be analytically accurate. If results do not match clinical presentation, improper collection (e.g., IV fluid contamination, improper tube type, mislabel) should be considered and re-collection recommended. Chloride 95(L) 97 - 110 mmol/L [facility] Comment:Sample investigated and found to be analytically accurate. If results do not match clinical presentation, improper collection (e.g., IV fluid contamination, improper tube type, mislabel) should be considered and re-collection recommended. CO2 29 22 - 32 mmol/L [facility] Comment:Sample investigated and found to be analytically accurate. If results do not match clinical presentation, improper collection (e.g., IV fluid contamination, improper tube type, mislabel) should be considered and re-collection recommended. Anion gap 11 2 - 15 mmol/L [facility] Comment:Sample investigated and found to be analytically accurate. If results do not match clinical presentation, improper collection (e.g., IV fluid contamination, improper tube type, mislabel) should be considered and re-collection recommended. BUN 21 6 - 25 mg/dL [facility] Comment:Sample investigated and found to be analytically accurate. If results do not match clinical presentation, improper collection (e.g., IV fluid contamination, improper tube type, mislabel) should be considered and re-collection recommended. Creatinine 4.22(H) 0.60 - 1.10 mg/dL [facility] Comment:Sample investigated and found to be analytically accurate. If results do not match clinical presentation, improper collection (e.g., IV fluid contamination, improper tube type, mislabel) should be considered and re-collection recommended. Glucose 700(C) 70 - 199 mg/dL [facility] Comment: Sample investigated and found to be [...] 2022. Calcium 7.4(L) 8.5 - 10.3 mg/dL [facility] Comment:Sample investigated and found to be analytically accurate. If results do not match clinical presentation, improper collection (e.g., IV fluid contamination, improper tube type, mislabel) should be considered and re-collection recommended. Blood 11/03/2024 2:25 AM CDT 11/03/2024 4:02 AM CDT us Luciano Hayes MD PhD LAB BLOOD ORDERABLES Final Result [facility] [place] [address] * (ABNORMAL) POCT glucose (11/03/2024 2:03 AM CDT) Glucose, POC >600(C) 70 - 199 mg/dL Comment:Glu2: RN/ Notified Glucose comment 1 Glu2: RN/ Notified [facility] Blood 11/03/2024 2:03 AM CDT 11/03/2024 2:03 AM CDT us Dutch Blake MD LAB POCT ORDERABLES - DEVICE Final Result Performing Organization Address [facility] Co de Phone Number [facility] [place] [address] * (ABNORMAL) POCT glucose (11/02/2024 8:42 PM CDT) Glucose, POC 204(H) 70 - 199 mg/dL Comment:Glu2: RN/MD Notified Glucose comment 1 Glu2: RN/MD Notified [facility] Blood 11/02/2024 8:42 PM CDT 11/02/2024 8:42 PM CDT us Dutch Blake MD LAB POCT ORDERABLES - DEVICE Final Result Performing Organization Address [facility] Co de Phone Number [facility] [place] [address] * (ABNORMAL) POCT glucose (11/02/2024 6:19 PM CDT) Glucose, POC 236(H) 70 - 199 mg/dL Blood 11/02/2024 6:19 PM CDT 11/02/2024 6:19 PM CDT us Dutch Blake MD LAB POCT ORDERABLES - DEVICE Final Result Performing Organization Address City/[facility] Co de Phone Number [facility] [place] [address] * (ABNORMAL) POCT glucose (11/02/2024 12:54 PM CDT) Glucose, POC 281(H) 70 - 199 mg/dL Blood 11/02/2024 12:5 4 PM CDT 11/02/2024 12:54 PM CDT Dutch Blake MD LAB POCT ORDERABLES - DEVICE Final Result Performing Organization Address [facility] de Phone Number [facility] [place] [address] * Post Dialysis BUN (11/02/2024 11:27 AM CDT) BUN Post 9 6 - 25 mg/dL Blood 11/02/2024 11:2 7 AM CDT 11/02/2024 12:06 PM CDT Francisco Middleton DO LAB BLOOD ORDERABLES Marli l Result Performing Organization Address [facility] de Phone Number [facility] [place] [address] * (ABNORMAL) Pre Dialysis BUN (11/02/2024 8:37 AM CDT) BUN Pre 37(H) 6 - 25 mg/dL Blood 11/02/2024 8:37 AM CDT 11/02/2024 8:49 AM CDT Francisco Middleton DO LAB BLOOD ORDERABLES Marli l Result Performing Organization Address [facility] de Phone Number [facility] [place] [address] * POCT glucose (11/02/2024 7:39 AM CDT) Glucose, POC 198 70 - 199 mg/dL Blood 11/02/2024 7:39 AM CDT 11/02/2024 7:39 AM CDT Dutch Blake MD LAB POCT ORDERABLES - DEVICE Final Result Performing Organization Address [facility] Co de Phone Number [facility] [place] [address] * (ABNORMAL) POCT glucose (11/02/2024 3:12 AM CDT) Glucose, POC 268(H) 70 - 199 mg/dL Blood 11/02/2024 3:12 AM CDT 11/02/2024 3:12 AM CDT us Dutch Blake MD LAB POCT ORDERABLES - DEVICE Final Result Performing Organization Address [facility] Co de Phone Number [facility] [place] [address] * (ABNORMAL) eGFR (11/01/2024 9:45 PM CDT) [facility] eGFR 9(L) >=60 mL/min/1. 73 m2 Comment: [...] PhD LAB BLOOD ORDERABLES Final Result [facility] [place] [address] * Differential, auto (11/01/2024 9:45 PM CDT) Neutrophil abs 2.74 1.50 - 6.50 K/cumm Imm gran abs 0.01 0.00 - 0.10 K/cumm [facility] Lymphocyte abs 1.86 0.80 - 3.30 K/cumm [facility] Monocyte abs 0.71 0.20 - 0.80 K/cumm [facility] Eosinophil abs 0.17 0.00 - 0.50 K/cumm [facility] Basophil abs 0.02 0.00 - 0.10 K/cumm [facility] Neutrophil pct 49.6 % [facility] Comment: Interpretive Data Percent cell count reference ranges are not reported, since discordance with absolute values may lead to misinterpretation of CBC data. Current Interpretive Data was last revised on 2017. Imm gran pct 0.2 % [facility] Comment: Interpretive Data Percent cell count reference ranges are not reported, since discordance with absolute values may lead to misinterpretation of CBC data. Current Interpretive Data was last revised on 2017. Lymphocyte pct 33.8 % [facility] Comment: Interpretive Data Percent cell count reference ranges are not reported, since discordance with absolute values may lead to misinterpretation of CBC data. Current Interpretive Data was last revised on 2017. Monocyte pct 12.9 % [facility] Comment: Interpretive Data Percent cell count reference ranges are not reported, since discordance with absolute values may lead to misinterpretation of CBC data. Current Interpretive Data was last revised on 2017. Eosinophil pct 3.1 % [facility] Comment: Interpretive Data Percent cell count reference ranges are not reported, since discordance with absolute values may lead to misinterpretation of CBC data. Current Interpretive Data was last revised on 2017. Basophil pct 0.4 % [facility] Comment: Interpretive Data Percent cell count reference ranges are not reported, since discordance with absolute values may lead to misinterpretation of CBC data. Current Interpretive Data was last revised on 2017. Blood 11/01/2024 9:45 PM CDT 11/01/2024 10:31 PM CDT Luciano Hayes MD PhD LAB BLOOD ORDERABLES Final Result Performing Organization Address [facility] Co de Phone Number [facility] Department [place] [address] * (ABNORMAL) CBC with auto differential (11/01/2024 9:45 PM CDT) Pathologist [facility] WBC 5.51 3.80 - 9.90 K/cumm Hgb 9.0(L) 11.9 - 15.5 g/dL [facility] Hct 28.1(L) 35.6 - 45.5 % [facility] Plt 286 150 - 400 K/cumm [facility] MPV 11.0 9.1 - 12.3 fL [facility] RBC 3.28(L) 3.90 - 5.20 M/cumm [facility] MCV 85.7 81.3 - 96.4 fL [facility] MCH 27.4 27.1 - 33.3 pg [facility] MCHC 32.0(L) 32.3 - 35.7 g/dL [facility] RDW CV 16.4(H) 11.1 - 14.9 % [facility] RDW SD 50.9(H) 35.7 - 48.1 fL [facility] NRBC abs 0.00 0.00 - 0.01 K/cumm [facility] Blood 11/01/2024 9:45 PM CDT 11/01/2024 10:31 PM CDT Luciano Hayes MD PhD LAB BLOOD ORDERABLES Final Result Performing Organization Address City/[facility]/ZIP Co de Phone Number [facility] [place] [address] * (ABNORMAL) Basic metabolic panel (11/01/2024 9:45 PM CDT) Sodium 142 135 - 145 mmol/L Potassium, pl 3.9 3.3 - 4.9 mmol/L [facility] Chloride 102 97 - 110 mmol/L [facility] CO2 27 22 - 32 mmol/L [facility] Anion gap 13 2 - 15 mmol/L [facility] BUN 36(H) 6 - 25 mg/dL [facility] Creatinine 6.00(H) 0.60 - 1.10 mg/dL [facility] Glucose 197 70 - 199 mg/dL [facility] Comment: Interpretive Data Fasting glucose >/= 126 [...] 2022. Calcium 6.9(L) 8.5 - 10.3 mg/dL [facility] Blood 11/01/2024 9:45 PM CDT 11/01/2024 10:31 PM CDT us Luciano Hayes MD PhD LAB BLOOD ORDERABLES Final Result Performing Organization Address City/[facility]/ZIP Co de Phone Number [facility] [place] [address] * POCT glucose (11/01/2024 9:30 PM CDT) Glucose, POC 184 70 - 199 mg/dL Blood 11/01/2024 9:30 PM CDT 11/01/2024 9:30 PM CDT Dutch Blake MD LAB POCT ORDERABLES - DEVICE Final Result Performing Organization Address City/[facility]/ZIP Co de Phone Number [facility] Department [place] [address] * POCT glucose (11/01/2024 4:50 PM CDT) Glucose, POC 130 70 - 199 mg/dL Comment:Glu2: RN/ Notified Glucose comment 1 Glu2: KADY/ Notified [facility] Blood 11/01/2024 4:50 PM CDT 11/01/2024 4:50 PM CDT us Dutch Blake MD LAB POCT ORDERABLES - DEVICE Final Result Performing Organization Address [facility] Co de Phone Number [facility] [place] [address] * (ABNORMAL) POCT glucose (11/01/2024 11:49 AM CDT) Glucose, POC 201(H) 70 - 199 mg/dL Comment:Glu2: ARIANA Notified Glucose comment 1 Glu2: ARIANA Notified [facility] Blood 11/01/2024 11:4 9 AM CDT 11/01/2024 11:49 AM CDT us Dutch Blake MD LAB POCT ORDERABLES - DEVICE Final Result Performing Organization Address [facility] Co de Phone Number [facility] [place] [address] * (ABNORMAL) POCT glucose (11/01/2024 8:12 AM CDT) Glucose, POC 338(H) 70 - 199 mg/dL Comment:Glu2: ARIANA Notified Glucose comment 1 Glu2: KADY/ Notified [facility] Blood 11/01/2024 8:12 AM CDT 11/01/2024 8:12 AM CDT Dutch Blake MD LAB POCT ORDERABLES - DEVICE Final Result Performing Organization Address [facility] Co de Phone Number [facility] [place] [address] * (ABNORMAL) POCT glucose (11/01/2024 1:38 AM CDT) [facility] Glucose, POC 232(H) 70 - 199 mg/dL Comment:Glu2: RN/MD Notified Glucose comment 1 Glu2: RN/MD Notified [facility] Blood 11/01/2024 1:38 AM CDT 11/01/2024 1:38 AM CDT Dutch Blake MD LAB POCT ORDERABLES - DEVICE Final Result Performing Organization Address [facility] de Phone Number [facility] [place] [address] * (ABNORMAL) eGFR (10/31/2024 11:30 PM CDT) [facility] eGFR 14(L) >=60 mL/min/1. 73 m2 Comment: [...] MD PhD LAB BLOOD ORDERABLES Final Result [facility] [place] [address] * (ABNORMAL) Differential, auto (10/31/2024 11:30 PM CDT) Neutrophil abs 7.04(H) 1.50 - 6.50 K/cumm Imm gran abs 0.03 0.00 - 0.10 K/cumm [facility] Lymphocyte abs 0.83 0.80 - 3.30 K/cumm [facility] Monocyte abs 0.28 0.20 - 0.80 K/cumm [facility] Eosinophil abs 0.09 0.00 - 0.50 K/cumm [facility] Basophil abs 0.02 0.00 - 0.10 K/cumm [facility] Neutrophil pct 84.9 % [facility] Comment: Interpretive Data Percent cell count reference ranges are not reported, since discordance with absolute values may lead to misinterpretation of CBC data. Current Interpretive Data was last revised on 2017. Imm gran pct 0.4 % [facility] Comment: Interpretive Data Percent cell count reference ranges are not reported, since discordance with absolute values may lead to misinterpretation of CBC data. Current Interpretive Data was last revised on 2017. Lymphocyte pct 10.0 % [facility] Comment: Interpretive Data Percent cell count reference ranges are not reported, since discordance with absolute values may lead to misinterpretation of CBC data. Current Interpretive Data was last revised on 2017. Monocyte pct 3.4 % [facility] Comment: Interpretive Data Percent cell count reference ranges are not reported, since discordance with absolute values may lead to misinterpretation of CBC data. Current Interpretive Data was last revised on 2017. Eosinophil pct 1.1 % [facility] Comment: Interpretive Data Percent cell count reference ranges are not reported, since discordance with absolute values may lead to misinterpretation of CBC data. Current Interpretive Data was last revised on 2017. Basophil pct 0.2 % [facility] Comment: Interpretive Data Percent cell count reference ranges are not reported, since discordance with absolute values may lead to misinterpretation of CBC data. Current Interpretive Data was last revised on 2017. Blood 10/31/2024 11:3 0 PM CDT 10/31/2024 11:57 PM CDT Luciano Hayes MD PhD LAB BLOOD ORDERABLES Final Result Performing Organization Address City/[facility]/ZIP Co de Phone Number [facility] [place] [address] * (ABNORMAL) CBC with auto differential (10/31/2024 11:30 PM CDT) WBC 8.29 3.80 - 9.90 K/cumm Hgb 10.4(L) 11.9 - 15.5 g/dL [facility] Hct 31.4(L) 35.6 - 45.5 % [facility] Plt 304 150 - 400 K/cumm [facility] MPV 11.2 9.1 - 12.3 fL [facility] RBC 3.72(L) 3.90 - 5.20 M/cumm [facility] MCV 84.4 81.3 - 96.4 fL [facility] MCH 28.0 27.1 - 33.3 pg [facility] MCHC 33.1 32.3 - 35.7 g/dL [facility] RDW CV 16.2(H) 11.1 - 14.9 % [facility] RDW SD 50.7(H) 35.7 - 48.1 fL [facility] NRBC abs 0.00 0.00 - 0.01 K/cumm [facility] Blood 10/31/2024 11:3 0 PM CDT 10/31/2024 11:57 PM CDT Luciano Hayes MD PhD LAB BLOOD ORDERABLES Final Result Performing Organization Address City/[facility]/ZIP Co de Phone Number [facility] [place] [address] * (ABNORMAL) Basic metabolic panel (10/31/2024 11:30 PM CDT) Pathologist [facility] Sodium 137 135 - 145 mmol/L Potassium, pl 3.8 3.3 - 4.9 mmol/L [facility] Chloride 97 97 - 110 mmol/L [facility] CO2 25 22 - 32 mmol/L [facility] Anion gap 15 2 - 15 mmol/L [facility] BUN 20 6 - 25 mg/dL [facility] Creatinine 4.28(H) 0.60 - 1.10 mg/dL [facility] Glucose 230(H) 70 - 199 mg/dL [facility] Comment: Interpretive Data Fasting glucose >/= 126 [...] 2022. Calcium 7.8(L) 8.5 - 10.3 mg/dL [facility] Blood 10/31/2024 11:3 0 PM CDT 10/31/2024 11:56 PM CDT us Luciano Hayes MD PhD LAB BLOOD ORDERABLES Final Result [facility] [place] [address] * POCT glucose (10/31/2024 8:07 PM CDT) Pathologist [facility] Glucose, POC 191 70 - 199 mg/dL Blood 10/31/2024 8:07 PM CDT 10/31/2024 8:07 PM CDT us Dutch Blake MD LAB POCT ORDERABLES - DEVICE Final Result Performing Organization Address [facility] Co de Phone Number [facility] [place] [address] * POCT glucose (10/31/2024 5:26 PM CDT) Glucose, POC 108 70 - 199 mg/dL Blood 10/31/2024 5:26 PM CDT 10/31/2024 5:26 PM CDT us Dutch Blake MD LAB POCT ORDERABLES - DEVICE Final Result Performing Organization Address [facility] Co de Phone Number [facility] [place] [address] * POCT glucose (10/31/2024 1:18 PM CDT) Glucose, POC 96 70 - 199 mg/dL Blood 10/31/2024 1:18 PM CDT 10/31/2024 1:18 PM CDT us Dutch Blake MD LAB POCT ORDERABLES - DEVICE Final Result Performing Organization Address [facility] Co de Phone Number [facility] [place] [address] * Hepatitis B Surface Antigen Blood (10/31/2024 9:31 AM CDT) HepBsAg Nonreactive Nonreactive Blood 10/31/2024 9:31 AM CDT 10/31/2024 9:57 AM CDT us Francisco Middleton DO LAB MICROBIOLOGY - GENERA L ORDERABLES Final Result Performing Organization Address City/[facility] Co de Phone Number [facility] [place] [address] * POCT glucose (10/31/2024 7:50 AM CDT) Glucose, POC 79 70 - 199 mg/dL Comment:Glu2: RN/MD Notified Glucose comment 1 Glu2: RN/MD Notified [facility] Blood 10/31/2024 7:50 AM CDT 10/31/2024 7:50 AM CDT Dutch Blake MD LAB POCT ORDERABLES - DEVICE Final Result [facility] [place] [address] * POCT glucose (10/31/2024 1:56 AM CDT) Glucose, POC 87 70 - 199 mg/dL Blood 10/31/2024 1:56 AM CDT 10/31/2024 1:56 AM CDT Dutch Blake MD LAB POCT ORDERABLES - DEVICE Final Result Performing Organization Address [facility] Co de Phone Number [facility] [place] [address] * (ABNORMAL) eGFR (10/30/2024 9:57 PM CDT) [...] MD PhD LAB BLOOD ORDERABLES Final Result [facility] [place] [address] * Differential, auto (10/30/2024 9:57 PM CDT) Neutrophil abs 2.96 1.50 - 6.50 K/cumm Imm gran abs 0.02 0.00 - 0.10 K/cumm [facility] Lymphocyte abs 2.18 0.80 - 3.30 K/cumm [facility] Monocyte abs 0.55 0.20 - 0.80 K/cumm [facility] Eosinophil abs 0.29 0.00 - 0.50 K/cumm [facility] Basophil abs 0.03 0.00 - 0.10 K/cumm [facility] Neutrophil pct 49.1 % [facility] Comment: Interpretive Data Percent cell count reference ranges are not reported, since discordance with absolute values may lead to misinterpretation of CBC data. Current Interpretive Data was last revised on 2017. Imm gran pct 0.3 % [facility] Comment: Interpretive Data Percent cell count reference ranges are not reported, since discordance with absolute values may lead to misinterpretation of CBC data. Current Interpretive Data was last revised on 2017. Lymphocyte pct 36.2 % [facility] Comment: Interpretive Data Percent cell count reference ranges are not reported, since discordance with absolute values may lead to misinterpretation of CBC data. Current Interpretive Data was last revised on 2017. Monocyte pct 9.1 % [facility] Comment: Interpretive Data Percent cell count reference ranges are not reported, since discordance with absolute values may lead to misinterpretation of CBC data. Current Interpretive Data was last revised on 2017. Eosinophil pct 4.8 % [facility] Comment: Interpretive Data Percent cell count reference ranges are not reported, since discordance with absolute values may lead to misinterpretation of CBC data. Current Interpretive Data was last revised on 2017. Basophil pct 0.5 % [facility] Comment: Interpretive Data Percent cell count reference ranges are not reported, since discordance with absolute values may lead to misinterpretation of CBC data. Current Interpretive Data was last revised on 2017. Blood 10/30/2024 9:57 PM CDT 10/30/2024 10:39 PM CDT Luciano Hayes MD PhD LAB BLOOD ORDERABLES Final Result Performing Organization Address City/[facility]/ZIP Co de Phone Number [facility] [place] [address] * Beta-hydroxybutyrate (10/30/2024 9:57 PM CDT) Pathologist [facility] Beta-Hydroxybut yrate 0.1 0.0 - 0.5 mmol/L Blood 10/30/2024 9:57 PM CDT 10/30/2024 10:28 PM CDT Luciano Hayes MD PhD LAB BLOOD ORDERABLES Edited Result - Final Performing Organization Address City/[facility]/ZIP Co de Phone Number [facility] [place] [address] * (ABNORMAL) CBC with auto differential (10/30/2024 9:57 PM CDT) Pathologist [facility] WBC 6.03 3.80 - 9.90 K/cumm Hgb 8.9(L) 11.9 - 15.5 g/dL [facility] Hct 27.6(L) 35.6 - 45.5 % [facility] Plt 277 150 - 400 K/cumm [facility] MPV 11.0 9.1 - 12.3 fL [facility] RBC 3.17(L) 3.90 - 5.20 M/cumm [facility] MCV 87.1 81.3 - 96.4 fL [facility] MCH 28.1 27.1 - 33.3 pg [facility] MCHC 32.2(L) 32.3 - 35.7 g/dL [facility] RDW CV 16.4(H) 11.1 - 14.9 % [facility] RDW SD 52.3(H) 35.7 - 48.1 fL [facility] NRBC abs 0.00 0.00 - 0.01 K/cumm [facility] Blood 10/30/2024 9:57 PM CDT 10/30/2024 10:39 PM CDT Luciano Hayes MD PhD LAB BLOOD ORDERABLES Final Result [facility] [place] [address] * (ABNORMAL) Basic metabolic panel (10/30/2024 9:57 PM CDT) Sodium 138 135 - 145 mmol/L Potassium, pl 4.2 3.3 - 4.9 mmol/L [facility] Chloride 100 97 - 110 mmol/L [facility] CO2 26 22 - 32 mmol/L [facility] Anion gap 12 2 - 15 mmol/L [facility] BUN 45(H) 6 - 25 mg/dL [facility] Creatinine 6.91(H) 0.60 - 1.10 mg/dL [facility] Glucose 252(H) 70 - 199 mg/dL [facility] Comment: Interpretive Data Fasting glucose >/= 126 [...] 2022. Calcium 8.1(L) 8.5 - 10.3 mg/dL [facility] Blood 10/30/2024 9:57 PM CDT 10/30/2024 10:39 PM CDT us Luciano Hayes MD PhD LAB BLOOD ORDERABLES Final Result Performing Organization Address City/[facility]/ZIP Co de Phone Number [facility] [place] [address] * (ABNORMAL) POCT glucose (10/30/2024 8:29 PM CDT) Glucose, POC 361(H) 70 - 199 mg/dL Comment:Glu2: RN/MD Notified Glucose comment 1 Glu2: RN/MD Notified [facility] Blood 10/30/2024 8:29 PM CDT 10/30/2024 8:29 PM CDT us Dennis Cadet MD LAB POCT ORDERABLES - DEV ICE Final Result Performing Organization Address [facility] Co de Phone Number [facility] [place] [address] * (ABNORMAL) POCT glucose (10/30/2024 5:10 PM CDT) Glucose, POC 292(H) 70 - 199 mg/dL Blood 10/30/2024 5:10 PM CDT 10/30/2024 5:10 PM CDT Dennis Cadet MD LAB POCT ORDERABLES - DEV ICE Final Result Performing Organization Address [facility] Co de Phone Number [facility] [place] [address] * (ABNORMAL) POCT glucose (10/30/2024 1:08 PM CDT) Glucose, POC 251(H) 70 - 199 mg/dL Blood 10/30/2024 1:08 PM CDT 10/30/2024 1:08 PM CDT Luciano Hayes MD PhD LAB POCT ORDERABLES - DEVIC E Final Result Performing Organization Address City/[facility] Co de Phone Number [facility] [place] [address] * (ABNORMAL) POCT glucose (10/30/2024 11:19 AM CDT) Glucose, POC 270(H) 70 - 199 mg/dL Blood 10/30/2024 11:1 9 AM CDT 10/30/2024 11:19 AM CDT Luciano Hayes MD PhD LAB POCT ORDERABLES - DEVIC E Final Result Performing Organization Address [facility] de Phone Number [facility] [place] [address] * (ABNORMAL) eGFR (10/30/2024 9:10 AM CDT) Pathologist [facility] eGFR 10(L) >=60 mL/min/1. 73 m2 Comment: [...] ORDERABLES Fi nal Result Performing Organization Address City/[facility]/ZIP Co de Phone Number [facility] [place] [address] * (ABNORMAL) Beta-hydroxybutyrate (10/30/2024 9:10 AM CDT) Pathologist [facility] Beta-Hydroxybut yrate 0.6(H) 0.0 - 0.5 mmol/L Blood 10/30/2024 9:10 AM CDT 10/30/2024 9:23 AM CDT Dennis Cadet MD LAB BLOOD ORDERABLES Marli l Result Performing Organization Address [facility] Co de Phone Number [facility] [place] [address] * (ABNORMAL) Basic metabolic panel (10/30/2024 9:10 AM CDT) Sodium 139 135 - 145 mmol/L Potassium, pl 4.7 3.3 - 4.9 mmol/L [facility] Comment:Hemolyzed; Potassium value may be falsely elevated by as much as 0.6-1.0 mmol/L. Suggest redraw and reanalysis. Chloride 102 97 - 110 mmol/L [facility] CO2 24 22 - 32 mmol/L [facility] Anion gap 13 2 - 15 mmol/L [facility] BUN 37(H) 6 - 25 mg/dL [facility] Creatinine 5.68(H) 0.60 - 1.10 mg/dL [facility] Glucose 214(H) 70 - 199 mg/dL [facility] Comment: Interpretive Data Fasting glucose >/= 126 [...] 2022. Calcium 7.9(L) 8.5 - 10.3 mg/dL [facility] Blood 10/30/2024 9:10 AM CDT 10/30/2024 9:27 AM CDT Crystal Schuster MD LAB BLOOD ORDERABLES Fi nal Result Performing Organization Address [facility] de Phone Number [facility] [place] [address] * POCT glucose (10/30/2024 8:07 AM CDT) Glucose, POC 172 70 - 199 mg/dL Blood 10/30/2024 8:07 AM CDT 10/30/2024 8:07 AM CDT Luciano Hayes MD PhD LAB POCT ORDERABLES - DEVIC E Final Result Performing Organization Address [facility] de Phone Number [facility] Department [place] [address] * POCT glucose (10/30/2024 6:31 AM CDT) Glucose, POC 173 70 - 199 mg/dL Blood 10/30/2024 6:31 AM CDT 10/30/2024 6:31 AM CDT Dennis Cadet MD LAB POCT ORDERABLES - DEV ICE Final Result Performing Organization Address [facility] de Phone Number CERNER [facility] [place] [address] * POCT glucose (10/30/2024 4:02 AM CDT) Glucose, POC 88 70 - 199 mg/dL Blood 10/30/2024 4:02 AM CDT 10/30/2024 4:02 AM CDT Dennis Cadet MD LAB POCT ORDERABLES - DEV ICE Final Result [facility] [place] [address] * POCT glucose (10/30/2024 2:30 AM CDT) Glucose, POC 95 70 - 199 mg/dL Blood 10/30/2024 2:30 AM CDT 10/30/2024 2:30 AM CDT Dennis Cadet MD LAB POCT ORDERABLES - DEV ICE Final Result Performing Organization Address City/[facility] Co de Phone Number BANNERLULY [facility] [place] [address] * (ABNORMAL) eGFR (10/30/2024 2:24 AM CDT) [...] CDT Crystal Schuster MD LAB BLOOD ORDERABLES nal Result [facility] [place] [address] * (ABNORMAL) Differential, auto (10/30/2024 2:24 AM CDT) Neutrophil abs 7.45(H) 1.50 - 6.50 K/cumm Imm gran abs 0.03 0.00 - 0.10 K/cumm [facility]ER [facility] Lymphocyte abs 2.30 0.80 - 3.30 K/cumm [facility] Monocyte abs 0.93(H) 0.20 - 0.80 K/cumm [facility] Eosinophil abs 0.09 0.00 - 0.50 K/cumm [facility] Basophil abs 0.03 0.00 - 0.10 K/cumm BANNERNER [facility] Neutrophil pct 68.8 % [facility] Comment: Interpretive Data Percent cell count reference ranges are not reported, since discordance with absolute values may lead to misinterpretation of CBC data. Current Interpretive Data was last revised on 2017. Imm gran pct 0.3 % [facility] Comment: Interpretive Data Percent cell count reference ranges are not reported, since discordance with absolute values may lead to misinterpretation of CBC data. Current Interpretive Data was last revised on 2017. Lymphocyte pct 21.2 % [facility] Comment: Interpretive Data Percent cell count reference ranges are not reported, since discordance with absolute values may lead to misinterpretation of CBC data. Current Interpretive Data was last revised on 2017. Monocyte pct 8.6 % [facility] Comment: Interpretive Data Percent cell count reference ranges are not reported, since discordance with absolute values may lead to misinterpretation of CBC data. Current Interpretive Data was last revised on 2017. Eosinophil pct 0.8 % [facility] Comment: Interpretive Data Percent cell count reference ranges are not reported, since discordance with absolute values may lead to misinterpretation of CBC data. Current Interpretive Data was last revised on 2017. Basophil pct 0.3 % [facility] Comment: Interpretive Data Percent cell count reference ranges are not reported, since discordance with absolute values may lead to misinterpretation of CBC data. Current Interpretive Data was last revised on 2017. Blood 10/30/2024 2:24 AM CDT 10/30/2024 2:44 AM CDT us Sandra Eddy MD LAB BLOOD ORDERABLES Final Resul t [facility] Department [place] [address] * (ABNORMAL) CBC with auto differential (10/30/2024 2:24 AM CDT) WBC 10.83(H) 3.80 - 9.90 K/cumm Hgb 9.3(L) 11.9 - 15.5 g/dL [facility] Hct 28.7(L) 35.6 - 45.5 % [facility] Plt 292 150 - 400 K/cumm [facility] MPV 11.0 9.1 - 12.3 fL [facility] RBC 3.34(L) 3.90 - 5.20 M/cumm [facility] MCV 85.9 81.3 - 96.4 fL [facility] MCH 27.8 27.1 - 33.3 pg [facility] MCHC 32.4 32.3 - 35.7 g/dL [facility] RDW CV 16.9(H) 11.1 - 14.9 % [facility] RDW SD 52.8(H) 35.7 - 48.1 fL [facility] NRBC abs 0.00 0.00 - 0.01 K/cumm [facility] Blood 10/30/2024 2:24 AM CDT 10/30/2024 2:44 AM CDT Sandra Eddy MD LAB BLOOD ORDERABLES Final Resul t Performing Organization Address [facility] [place] [address] * (ABNORMAL) Hemoglobin A1c (10/30/2024 2:24 AM CDT) Hgb A1C 8.8(H) 4.0 - 5.6 % Estimated Average Glucose 206 mg/dL [facility] Comment: The ADA recommends reporting an estimated [...] ORDERABLES Marli l Result Performing Organization Address [facility] [place] [address] * Blood gas, venous (10/30/2024 2:24 AM CDT) pH, Venous 7.34 7.32 - 7.43 PCO2, Venous 50 40 - 50 mmHg [facility] PO2, Venous 41 mmHg [facility] Comment: Interpretive Data No Reference Range Established Current Interpretive Data was last revised on 2017. HCO3 Venous, Calculated 28 20 - 30 mmol/L [facility] BE, venous 1 mmol/L [facility] Comment: Interpretive Data No Reference Range Established Current Interpretive Data was last revised on 2017. Blood 10/30/2024 2:24 AM CDT 10/30/2024 2:31 AM CDT Crystal Schuster MD LAB BLOOD ORDERABLES Fi nal Result Performing Organization Address [facility]/ZIP Co de Phone Number [facility] Department [place] [address] * (ABNORMAL) Basic metabolic panel (10/30/2024 2:24 AM CDT) [facility] Sodium 143 135 - 145 mmol/L Potassium, pl 3.6 3.3 - 4.9 mmol/L [facility] Chloride 106 97 - 110 mmol/L [facility] CO2 28 22 - 32 mmol/L [facility] Anion gap 9 2 - 15 mmol/L [facility] BUN 35(H) 6 - 25 mg/dL [facility] Creatinine 5.56(H) 0.60 - 1.10 mg/dL [facility] Glucose 112 70 - 199 mg/dL [facility] Comment: Interpretive Data Fasting glucose >/= 126 [...] 2022. Calcium 7.8(L) 8.5 - 10.3 mg/dL [facility] Blood 10/30/2024 2:24 AM CDT 10/30/2024 2:43 AM CDT Crystal Schuster MD LAB BLOOD ORDERABLES Fi nal Result Performing Organization Address [facility]/ZIP Co de Phone Number [facility] Department [place] [address] * POCT glucose (10/30/2024 12:01 AM CDT) Glucose, POC 181 70 - 199 mg/dL Blood 10/30/2024 12:0 1 AM CDT 10/30/2024 12:01 AM CDT Dennis Cadet MD LAB POCT ORDERABLES - DEV ICE Final Result Performing Organization Address [facility] Co de Phone Number HERBER [facility] [place] [address] * (ABNORMAL) POCT glucose (10/29/2024 10:01 PM CDT) Glucose, POC 297(H) 70 - 199 mg/dL Blood 10/29/2024 10:0 1 PM CDT 10/29/2024 10:01 PM CDT Dennis Cadet MD LAB POCT ORDERABLES - DEV ICE Final Result Performing Organization Address [facility] de Phone Number [facility] [place] [address] * (ABNORMAL) POCT glucose (10/29/2024 8:26 PM CDT) Glucose, POC 290(H) 70 - 199 mg/dL Blood 10/29/2024 8:26 PM CDT 10/29/2024 8:26 PM CDT Dennis Cadet MD LAB POCT ORDERABLES - DEV ICE Final Result Performing Organization Address [facility] de Phone Number HERBER [facility] [place] [address] * (ABNORMAL) eGFR (10/29/2024 8:13 PM CDT) [...] MD LAB BLOOD ORDERABLES Final R esult [facility] [place] [address] * Lipid panel (10/29/2024 8:13 PM CDT) [...] on 2017. Triglycerides 92 <=149 mg/dL [facility] Comment: Interpretive Data Ages [...] revised on 2017. HDL 49 >=40 mg/dL [facility] Comment: Interpretive Data Ages < or [...] on 2017. LDL, calculated 58 <=129 mg/dL [facility] Comment: Interpretive Data Ages < or [...] NCEP Expert Panel. Circulation 2004;110:227 3. Giovanni Pereira al. CARLOS Cardiol. 2020 August 17;5(5):540-548. doi: 10.1001/jamacardio.2020.0013 Current Interpretive Data was last revised on 2023. Non-HDL Cholesterol 75 mg/dL [facility] Comment: Interpretive Data Ages < or = [...] last revised on 2017. Chol/HDL ratio 3 [facility] Blood 10/29/2024 8:13 PM CDT 10/29/2024 8:27 PM CDT us Dennis Cadet MD LAB BLOOD ORDERABLES Marli lipscomb Result [facility] Department [place] [address] * (ABNORMAL) Basic metabolic panel (10/29/2024 8:13 PM CDT) Pathologist [facility] Sodium 143 135 - 145 mmol/L Potassium, pl 4.1 3.3 - 4.9 mmol/L [facility] Chloride 102 97 - 110 mmol/L [facility] CO2 23 22 - 32 mmol/L [facility] Anion gap 18(H) 2 - 15 mmol/L [facility] BUN 31(H) 6 - 25 mg/dL [facility] Creatinine 5.00(H) 0.60 - 1.10 mg/dL [facility] Glucose 266(H) 70 - 199 mg/dL [facility] Comment: Interpretive Data Fasting glucose >/= 126 [...] 2022. Calcium 7.7(L) 8.5 - 10.3 mg/dL [facility] Blood 10/29/2024 8:13 PM CDT 10/29/2024 8:27 PM CDT us Ari Us MD LAB BLOOD ORDERABLES Final R esult Performing Organization Address City/[facility]/ZIP Co de Phone Number [facility] [place] [address] * (ABNORMAL) POCT glucose (10/29/2024 4:00 PM CDT) Glucose, POC 290(H) 70 - 199 mg/dL Comment:Glu2: RN/MD Notified Glucose comment 1 Glu2: RN/MD Notified [facility] Blood 10/29/2024 4:00 PM CDT 10/29/2024 4:00 PM CDT us Ciaran Medina MD LAB POCT ORDERABLES - DEVICE Final Result Performing Organization Address [facility]/ZIP Co de Phone Number [facility] [place] [address] * (ABNORMAL) POCT glucose (10/29/2024 12:58 PM CDT) Glucose, POC 299(H) 70 - 199 mg/dL Blood 10/29/2024 12:5 8 PM CDT 10/29/2024 12:58 PM CDT us Nathan Moore MD LAB POCT ORDERABLES - DE VICE Final Result Performing Organization Address City/[facility]/ZIP Co de Phone Number [facility] [place] [address] * (ABNORMAL) POCT glucose (10/29/2024 11:55 AM CDT) Glucose, POC 309(H) 70 - 199 mg/dL Comment:Glu2: RN/MD Notified Glucose comment 1 Glu2: RN/ Notified [facility] Blood 10/29/2024 11:5 5 AM CDT 10/29/2024 11:55 AM CDT us Nathan Moore MD LAB POCT ORDERABLES - DE VICE Final Result [facility] [place] [address] * XR Chest PA Lateral 2 Views [...] is within normal limits. Dictated by: Kevin Richardosn M.D. The radiology attending physician has personally reviewed this study, and had reviewed and/or edited this written report and agrees with it. Electronically signed by: Damon Crook M.D. us Nathan Moore MD IMG XR PROCEDURES Final Result * POCT lactate (10/29/2024 11:14 AM CDT) [facility] Lactate POC i-STAT 1.6 0.7 - 2.0 mmol/L Blood 10/29/2024 11:1 4 AM CDT 10/29/2024 11:14 AM CDT us Nathan Moore MD LAB POCT ORDERABLES - DE VICE Final Result Performing Organization Address [facility] Co de Phone Number [facility] [place] [address] * Potassium, whole blood (10/29/2024 11:03 AM CDT) [facility] Potassium, bld 4.2 3.3 - 4.9 mmol/L Blood 10/29/2024 11:0 3 AM CDT 10/29/2024 11:15 AM CDT Ari Us MD LAB BLOOD ORDERABLES Final R esult Performing Organization Address [facility]/ZIP Co de Phone Number [facility] [place] [address] * (ABNORMAL) eGFR (10/29/2024 11:03 AM CDT) [facility] eGFR 12(L) >=60 mL/min/1. 73 m2 Comment: [...] MD LAB BLOOD ORDERABLES Final R esult [facility] [place] [address] * (ABNORMAL) Differential, auto (10/29/2024 11:03 AM CDT) Neutrophil abs 8.42(H) 1.50 - 6.50 K/cumm Imm gran abs 0.04 0.00 - 0.10 K/cumm [facility] Lymphocyte abs 1.17 0.80 - 3.30 K/cumm [facility] Monocyte abs 0.52 0.20 - 0.80 K/cumm [facility] Eosinophil abs 0.17 0.00 - 0.50 K/cumm [facility] Basophil abs 0.04 0.00 - 0.10 K/cumm [facility] Neutrophil pct 81.3 % [facility] Comment: Interpretive Data Percent cell count reference ranges are not reported, since discordance with absolute values may lead to misinterpretation of CBC data. Current Interpretive Data was last revised on 2017. Imm gran pct 0.4 % [facility] Comment: Interpretive Data Percent cell count reference ranges are not reported, since discordance with absolute values may lead to misinterpretation of CBC data. Current Interpretive Data was last revised on 2017. Lymphocyte pct 11.3 % [facility] Comment: Interpretive Data Percent cell count reference ranges are not reported, since discordance with absolute values may lead to misinterpretation of CBC data. Current Interpretive Data was last revised on 2017. Monocyte pct 5.0 % [facility] Comment: Interpretive Data Percent cell count reference ranges are not reported, since discordance with absolute values may lead to misinterpretation of CBC data. Current Interpretive Data was last revised on 2017. Eosinophil pct 1.6 % [facility] Comment: Interpretive Data Percent cell count reference ranges are not reported, since discordance with absolute values may lead to misinterpretation of CBC data. Current Interpretive Data was last revised on 2017. Basophil pct 0.4 % [facility] Comment: Interpretive Data Percent cell count reference ranges are not reported, since discordance with absolute values may lead to misinterpretation of CBC data. Current Interpretive Data was last revised on 2017. Blood 10/29/2024 11:0 3 AM CDT 10/29/2024 11:21 AM CDT us Nathan Moore MD LAB BLOOD ORDERABLES Fin al Result [facility] [place] [address] * (ABNORMAL) CBC with auto differential (10/29/2024 11:03 AM CDT) WBC 10.36(H) 3.80 - 9.90 K/cumm Hgb 11.5(L) 11.9 - 15.5 g/dL [facility] Hct 35.0(L) 35.6 - 45.5 % [facility] Plt 345 150 - 400 K/cumm [facility] MPV 11.2 9.1 - 12.3 fL [facility] RBC 4.14 3.90 - 5.20 M/cumm [facility] MCV 84.5 81.3 - 96.4 fL [facility] MCH 27.8 27.1 - 33.3 pg [facility] MCHC 32.9 32.3 - 35.7 g/dL [facility] RDW CV 16.6(H) 11.1 - 14.9 % [facility] RDW SD 50.8(H) 35.7 - 48.1 fL [facility] NRBC abs 0.00 0.00 - 0.01 K/cumm [facility] Blood 10/29/2024 11:0 3 AM CDT 10/29/2024 11:21 AM CDT Nathan Moore MD LAB BLOOD ORDERABLES Fin al Result Performing Organization Address City/[facility] Co de Phone Number [facility] [place] [address] * Lipase (10/29/2024 11:03 AM CDT) Pathologist [facility] Lipase 49 10 - 99 Units/L Blood 10/29/2024 11:0 3 AM CDT 10/29/2024 11:21 AM CDT Result [facility] Ari Us MD LAB BLOOD ORDERABLES Final R esult Performing Organization Address [facility] de Phone Number [facility] [place] [address] * (ABNORMAL) Hemoglobin A1c (10/29/2024 11:03 AM CDT) Hgb A1C 9.1(H) 4.0 - 5.6 % Estimated Average Glucose 214 mg/dL [facility] Comment: The ADA recommends reporting an estimated [...] ORDERABLES Marli l Result Performing Organization Address [facility] Co de Phone Number [facility] [place] [address] * Blood gas, venous (10/29/2024 11:03 AM CDT) pH, Venous 7.35 7.32 - 7.43 PCO2, Venous 50 40 - 50 mmHg [facility] PO2, Venous 41 mmHg [facility] Comment: Interpretive Data No Reference Range Established Current Interpretive Data was last revised on 2017. HCO3 Venous, Calculated 28 20 - 30 mmol/L [facility] BE, venous 1 mmol/L [facility] Comment: Interpretive Data No Reference Range Established Current Interpretive Data was last revised on 2017. Blood 10/29/2024 11:0 3 AM CDT 10/29/2024 11:15 AM CDT us Ari Us MD LAB BLOOD ORDERABLES Final R esult Performing Organization Address [facility] Co de Phone Number [facility] [place] [address] * (ABNORMAL) Hepatic function panel (10/29/2024 11:03 AM CDT) Bilirubin, total 0.4 0.1 - 1.2 mg/dL Bilirubin, direct <0.2 0.1 - 0.3 mg/dL [facility] Protein, pl 8.5 6.5 - 8.5 g/dL [facility] Albumin 4.4 3.5 - 5.0 g/dL [facility] Alk phos 336(H) 40 - 130 Units/L [facility] ALT 42 7 - 45 Units/L [facility] AST 39 10 - 45 Units/L [facility] Blood 10/29/2024 11:0 3 AM CDT 10/29/2024 11:21 AM CDT Ari Us MD LAB BLOOD ORDERABLES Final R esult [facility] Department [place] [address] * (ABNORMAL) Basic metabolic panel (10/29/2024 11:03 AM CDT) Pathologist [facility] Sodium 138 135 - 145 mmol/L Potassium, pl 4.0 3.3 - 4.9 mmol/L [facility] Chloride 94(L) 97 - 110 mmol/L [facility] CO2 26 22 - 32 mmol/L [facility] Anion gap 18(H) 2 - 15 mmol/L [facility] BUN 28(H) 6 - 25 mg/dL [facility] Creatinine 4.75(H) 0.60 - 1.10 mg/dL [facility] Glucose 358(H) 70 - 199 mg/dL [facility] Comment: Interpretive Data Fasting glucose >/= 126 [...] 2022. Calcium 8.5 8.5 - 10.3 mg/dL [facility] Blood 10/29/2024 11:0 3 AM CDT 10/29/2024 11:21 AM CDT us Ari Us MD LAB BLOOD ORDERABLES Final R esult [facility] [place] [address] * (ABNORMAL) POCT ketone, blood (10/29/2024 10:22 AM CDT) Pathologist [facility] Beta-Hydroxybut yrate, POC 1.2(H) 0.0 - 0.5 mmol/L Blood 10/29/2024 10:2 2 AM CDT 10/29/2024 10:22 AM CDT Nathan Moore MD LAB POCT ORDERABLES - DE VICE Final Result Performing Organization Address [facility] Co de Phone Number [facility] [place] [address] * (ABNORMAL) POCT glucose (10/29/2024 10:21 AM CDT) Pathologist [facility] Glucose, POC 274(H) 70 - 199 mg/dL Blood 10/29/2024 10:2 1 AM CDT 10/29/2024 10:21 AM CDT Nathan Moore MD LAB POCT ORDERABLES - DE VICE Final Result Performing Organization Address [facility] Co de Phone Number [facility] [place] [address] * TSH (01/09/2024 3:52 PM CDT) Pathologist [facility] Thyroid Stimulating Hormone 2.46 0.30 - 4.20 mcIUnit/mL Blood 01/09/2024 3:52 PM CDT 01/09/2024 4:46 PM CDT Sailaja Ramos MD LAB BLOOD ORDERABLES Final Result Performing Organization Address [facility] Co de Phone Number [facility] [place] [address] * Hepatitis panel, acute Blood (12/24/2023 7:26 AM CDT) Pathologist [facility] Hep A IgM Nonreactive Nonreactive Comment: Interpretive Data: If Hep A IgM Ab is reported as Equivocal, a new sample should be drawn in two weeks for testing. Current interpretive data was last revised on 19. Hep B core IgM Nonreactive Nonreactive [facility] Comment: Interpretive Data If HepB Core IgM Ab is reported as Equivocal, a new sample should be drawn in two weeks for testing. Current interpretive data was last revised on 19. Hep C Ab Nonreactive Nonreactive [facility] Comment: Antibodies to HCV not detected. Does [...] GENERAL OR DERABLES Final Result [facility] [address]LL[address] [facility] Department of Laboratories [place], [place] [id number] from Last 3 Months or Most Recently Relevant to Health Maintenance
--- OUTSIDE RECORDS SUMMARY | 2025-01-29 15:21 | XMS_ITS | Encounter Summary ---
Author Organization [facility] Facility Care Team Providers Care Director Oncology Name Role Phone Unknown, Notinfile Primary Care Provider Unavail able Lay Villalta MD Primary Care Provider [phone] Tremayne Kebede MD Unavailable [phone] Georgia Mcbride VIDEO LIBRARY ASSISTANT Unavailable [phone] Miscellaneous, Not In File Unavailable Unava ilable Eun Camacho Primary Care Provider + Cony Pemberton HOUSING COORDINATOR Unavailable [phone] Antonette Vernon RN Unavailable [phone] Andrei Chaves MD PhD Unavailable [phone] Olivia Phelps MD Unavailable [phone] Edgardo Aldridge MD Primary Care Provider [phone] Odilon Tellez MD Unavailable [phone] Miscellaneous, Not In File Unavailable Unava ilable Ct Boggs HOUSING COORDINATOR Unavailable [phone] Odilon Tellez MD Unavailable [phone] Tracey Felix RN Unavailable [phone] Ayaka Thomas MD Unavailable [phone] Yumi Jones NP Unavailable [phone] T[employer]ut[employer] HOUSING COORDINATOR Unavailable Unavaila ble Feli Boggs RN Unavailable [phone] Mendel Bowling RN Unavailable [phone] Leslie Baptiste [facility] Unavailable Mendel Bowling RN Unavailable [phone] Odilon Tellez MD Unavailable [phone] Mavis Barahona RN Unavailable [phone] Mahnaz Garcia RN Unavailable [phone] Jaimie Glez RN Unavailable [phone] Encounter Details Date Type Department Care Team (Latest Contact Info) Description 02/01/2017 Orders Only [facility] CLINCONV Provider, MD [facility] [address] [place] [id number] Social History Tobacco Use Types Packs/Day Years Used Date Smoking Tobacco: Never Comments Unknown Sex and Gender Information Value Date Recorded Sex Assigned at Not on file Legal Sex Female 9:16 AM CATH LAB Gender Identity Not on file Sexual Orientation [...] CDT COVID19 02/02/2020 02/02/2020 02/19/2020 3:05 AM CATH LAB COVID: Recovered Comment:Added based on recent COVID [...] COVID: Suspected 06/15/2023 06/15/2023 06/15/2023 5:53 PM CATH LAB C. difficile suspected 06/24/2023 06/24/202306/26 6:03 AM CDT COVID: Suspected 06/27/2023 06/27/2023 06/27/2023 7:07 PM CDT COVID: Suspected 07/10/2023 07/10/2023 07/10/2023 6:50 AM CDT COVID: Suspected 07/13/2023 07/13/2023 07/13/2023 9:45 PM CDT MRSA Comment:MRSA Isolation Shelter 06/21/24 10/23/2023 02/09/2024 06/21/2024 6:[address] C. 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 Source: [facility]. 08/20/2024 Carbapenemase, Unspecified Comment:Added from external infection. Source: [facility]. Kleb pneumo [facility]PC 09/23/2024 10/31/2024 3:07 PM C DT CP-BLOOD BANK COORDINATOR Comment:Added from external infection. Source: [facility]. Kleb pneumo KPC 10/31/2024 10/31/2024 documented as of this encounter Care Teams Director Oncology Relationship Specialty Start Date End Date Unknown, Notinfile PCP - General 12/28/16 08/23/18 Lay Villalta MD PCP - General Family Medicine 08/24/18 07/17/21 Eun Camacho PA PCP - General Family Medicine 07/18/21 03/08/23 Edgardo Aldridge MD [address] [facility] [address] or 4 [place] [id number] PCP - General Family Medicine 04/02/23 Tremayne Kebede MD Consulting Physician Gastroenterology 02/05/20 3 Georgia Mcbride LPN [address] [place] [address] [address] [place] [address] ACO Care Merchandise Complaint Adjuster 11/28/20 12/19/20 Miscellaneous, Not In File 07/17/21 03/16/23 Cony Pemberton, HOUSING COORDINATOR [address] [facility] ([facility] Mailstop [phone] [place] [address] SHOP Outpatient Counterintelligence Specialist 12/07/22 12/07/22 Antonette Vernon, KADY [address] [place] [address] SHOP Outpatient Counterintelligence Specialist 12/08/22 01/05/23 Andrei Chaves MD PhD [address] [facility] [address] [place] [address] Referring Physician General Surgery 03/17/23 Olivia Phelps MD [address] [place], [place] [address] Consulting Physician Nephrology 03/17/23 Odilon Tellez MD [address] [facility] [address] [place], [place] [address] Consulting Physician Nephrology 05/01/23 12/04/24 Miscellaneous, Not In File 07/08/23 01/24/24 Ct Boggs, [facility] [address] [facility] ([facility] Mailstop [phone] [place] [address] SHOP Outpatient Counterintelligence Specialist 07/09/23 08/05/23 Odilon Tellez MD [address] [place] [address] Referring Physician Nephrology 11/12/23 Tracey Felix, KADY [address] [place] [address] Retirement Consultant 11/12/23 11/17/23 Ayaka Thomas MD [address] [facility] [address] [place] [address] Fellow Internal Medicine 12/17/23 Yumi Jones NP [address] [facility] [address] [place] [address] Nurse Practitioner Hospice and Palliative Medicine 08/16/23 Ruthy Leahy LCSW Church Worker 12/31/23 02/22/24 Feli Boggs, RN [address] [place] [address] [address] [place] [address] Record Changer Assembler 12/31/23 01/02/24 Mendel Bowling, KADY [address] [place] [address] [address] [place] [address] Record Changer Assembler 01/03/24 03/23/24 Leslie Baptiste, [address] [place] [address] Pharmacist Pharmacy 01/13/24 02/03/24 Mendel Bowling, KADY [address] [place] [address] [address] [place] [address] Record Changer Assembler 11/07/24 01/04/25 Odilon Tellez MD [address] [facility] [address] [place] [address] Consulting Physician Nephrology 12/05/24 Mavis Barahona, RN [address] [facility] [address] [place] [address] Retirement Consultant 12/20/24 01/08/25 Mahnaz Garcia, KADY [address] [place] [address] [address] [place] [address] Record Changer Assembler 01/15/25 01/15/25 Jaimie Glez RN [address] [place] [address] [address] [place] [address] Record Changer Assembler 01/29/25 documented as of this encounter
--- OUTSIDE RECORDS SUMMARY | 2025-01-29 15:21 | XMS_ITS | Clinical Summary ---
Author Organization [facility] Address [address] [facility] [place] [address] Care Team Providers Care Athletic Director Name Role Phone Edgardo Aldridge MD Primary Care Provider [phone] Source Comments [facility],non-owned Affiliates and Associated Physician Practices is amultiple site organization consisting of ambulatory clinics and hospital sitesin [place], [place], [place] and [place]. This disclosure is being madepursuant to the Care Everywhere program and may not contain all information available regarding this patient. Last updated 18.[facility] Allergies Active Allergy Reactions Criticality Noted Date [...] EVERY 10 DAYS 4 Active Continuous Glucose Receiving Operator (Dexcom G6 Receiving Operator) MARIANNA as directed 3 Active escitalopram (Lexapro) [...] 16 g by mouth as needed 4 Active insulin aspart (NovoLOG) vial Inject subcutaneously [...] MM MISC 4 Active TRUEplus 5-Bevel Pen [place] 31G X 5 MM needle USE TO INJECT 5 TIMES PER DAY 3 Active BD Veo Insulin Syr U/F 1/2Unit 31G X 15/64 0.3 ML syringe 3 [...] on file Legal Sex Female 5:44 AM [facility] Gender Identity Not on file Sexual Orientation Not on file 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 Not on file Not [...] 04/19/2024 10/17/2022, 09/18/2022, 02/12/2021, Additional history exists COVID-19 VACCINE (2 - season) 2024 01/24/2021 INFLUENZA VACCINE (#1) 2024 , 02/16/2023, 02/14/2021, Additional history exists DIABETES-HGB A1C 05/27/2025 11/24/2024, , 10/29/2024, Additional history exists DIABETES-SERUM CREATININE 12/28/20252024, 12/28/2024, 12/24/2024, Additional history exists ZOSTER VACCINE (1 of 2) 06/16/2045 HEPATITIS C SCREENING Completed 10/31/2024 , 10/06/2024, 10/06/2024, Additional history exists HIB VACCINE Aged Out [...] track( 024 12:22 PM CDT) Ari Chow, RN Note: Expected end date: ongoing Interventions: Take [...] examination HEMOGLOBIN A1C Routine 06/08/2018 7:21 AM M[facility] from Last 3 Months or Most Recently Relevant to Health Maintenance Results * (ABNORMAL) BASIC METABOLIC PANEL (CALCIUM TOTAL) (02/01/2024 9:01 AM CDT) BUN 54(H) 7 - 26 mg/dL 02/01/2024 9:58 AM [facility] Creatinine 6.37(H) 0.56 - 0.96 mg/dL 02/01/2024 9:58 AM [facility] Sodium 136 136 - 145 mmol/L 02/01/2024 9:58 AM [facility] Potassium 5.8(H) 3.5 - 4.5 mmol/L 02/01/2024 9:58 AM [facility] Chloride 106 98 - 107 mmol/L 02/01/2024 9:58 AM [facility] CO2 20(L) 22 - 29 mmol/L 02/01/2024 9:58 AM [facility] Glucose 35(LL) 70 - 115 mg/dL 02/01/2024 9:58 AM [facility] Calcium 8.4 8.4 - 10.2 mg/dL 02/01/2024 9:58 AM [facility] Anion Gap 10 6 - 16 02/01/2024 9:58 AM [facility] BUN/Creatinine Ratio 8 7 - 23 02/01/2024 9:58 AM [facility] Osmolality Calculated 293 275 - 295 mOsm/kg 02/01/2024 9:58 AM CDT [facility] eGFR by CKD-EPI 9(L) >=90 mL/min/1.7 3 m2 02/01/2024 9:58 AM CDT [facility] Blood BLOOD SPECIMEN / Unknown Venipuncture / Unknown 02/01/2024 9:01 AM CDT 02/01/2024 9:08 AM CDT Tess Dunham MD LAB - CHEMISTRY ORDERABLES Final Result [facility] [address] [place] [address], [facility] [phone] * (ABNORMAL) HEMOGLOBIN A1C (06/08/2018 7:21 AM M[facility]) Hemoglobin A1c 14.5(H) 4.2 - 6.3 % 06/08/2018 8:06 AM [facility] Estimated Average Glucose 369 mg/dL 06/08/2018 8:06 AM [facility] Blood BLOOD SPECIMEN / Unknown Lab Venipuncture / Unknown 06/08/2018 7:21 AM [facility] 06/08/2018 7:37 AM [facility] Corina Simmons MD LAB - CHEMISTRY ORDERABLES Final Result [facility] [address] [place] [address] from Last 3 Months or Most Recently Relevant to [place] [address] MEDICAID - [place] [place]ICAID - [place] MED[place] MEDICAID [facility] Advance Directives * Full Code (Latest [...] 10:29 AM 07/09/2015 1:11 PM Care Teams Athletic Director Relationship Specialty Start Date End Date Edgardo Aldridge MD [address] [facility] [address] [place] [id number] PCP - General Family Medicine 12/28/23
--- OUTSIDE RECORDS SUMMARY | 2025-01-29 15:21 | XMS_ITS | Encounter Summary ---
Author Organization [facility] Address Formerly [facility] [place] [address] Care Team Providers Care Airplane Pilot Crop Dusting Name Role Phone Lay Cota MD Primary Care Provider [phone] Edgardo Aldridge MD Primary Care Provider [phone] Keely Ugalde JANITORIAL SERVICES SUPERVISOR Unavailable [phone] Keely Ugalde JANITORIAL SERVICES SUPERVISOR Unavailable [phone] Odilon Tellez MD Unavailable [phone] Leonardo Washburn MD Unavailable [phone] Young Vasquez MD Unavailable [phone] Andrei Chaves MD Unavailable [phone] Encounter Details Date Type Department Care Team (Late st Contact Info) Description 03/07/2024 Prep for Procedure [facility] [place], [place] [id number] Juan Long MD [address] [place] [address] Social History Tobacco Use Types Packs/Day Years Used Date Smoking Tobacco: Never Smokeless Tobacco: Never Alcohol Use Standard Drinks/Week Comments Not Currently 0 (1 standard drink = 0.6 oz pur e alcohol) occasionally [facility] Utilities Answer Date Recorded In the past 12 months has [place] electric, gas, oil, or water company threatened to shut off services in your home? No 03/20/2023 Humiliation, Afraid, Rape, and Kick questionnair e Answer Date Recorded Within the last year, have y ou been afraid of your partner or ex-partner? No 03/20/2023 Within the last year, have y ou been humiliated or emotionally abused in other ways by your partner or ex-partner? No Within the last year, have y ou been kicked, hit, slapped, or otherwise physically hurt by your partner or ex-partner? No 03/20/2023 Within the last year, have y ou been raped or forced to have any kind of sexual activity by your partner or ex-partner? No 03/20/2023 Social Connection and Isolation Panel Answer Date Recorded In a typical week, how many times do you talk on the phone with family, friends, or neighbors? More than three times a week 12/31/2022 How often do you get togethe r with friends or relatives? More than three times a week 12/31/2022 How often do you attend chur or spiritism services? Never 12/31/2022 Do you belong to any clubs o r organizations such as anabaptist groups, unions, fraternal or athletic groups, or school groups? No 12/31/2022 How often do you attend meet ings of the clubs or organizations you belong to? Never 12/31/2022 Are you , , di vorced, , never , or living with a partner? Never 12/31/2022 AUDIT-C Answer Date Recorded Q1: How often do you have a drink containing alcohol? Never 12/31/2022 Q2: How many drinks containi ng alcohol do you have on a typical day when you are drinking? Patient does not drink Q3: How often do you have si x or more drinks on one occasion? Never 12/31/2022 Overall Financial Resource Strain (CARDIA) Answe r Date Recorded How hard is it for you to pa y for the very basics like food, housing, medical care, and heating? Not hard at all 03/20/2023 PHQ-2 Answer Date Recorded Patient Health Questionnaire-2 Score 0 12/31/2022 [facility] of Occupat ional Health - Occupational Stress Questionnaire Answer Date Recorded Do you feel stress - tense, restless, nervous, or anxious, or unable to sleep at night because your mind is troubled all the time - these days? Only a little 12/31/2022 Exercise Vital Sign Answer Date Recorde d On average, how many days pe r week do you engage in moderate to strenuous exercise (like a brisk walk)? 2 days 12/31/2022 On average, how many minutes do you engage in exercise at this level? 30 min 12/31/2022 Hunger Vital Sign Answer Date Recorded Within the past 12 months, y ou worried that your food would run out before you got the money to buy more. Never true 03/20/20 23 Within the past 12 months, t he food you bought just didn't last and you didn't have money to get more. Never true 03/20/2023 PRAPARE - Transportation Answer Date Re corded In the past 12 months, has l ack of transportation kept you from medical appointments or from getting medications? No 05/2022 In the past 12 months, has l ack of transportation kept you from meetings, work, or from getting things needed for daily living? No 03/20/2023 Housing Stability Vital Sign Answer [...] place to sleep or slept in a fdc (including now)? No 03/20/2023 Housing Stability Vital Sign Answer Pablo e Recorded In the last 12 months, was t here a time when you were not able to pay the mortgage or rent on time? No 03/20/2023 Number of Times Moved in the Last Year Not on fi le 03/20/2023 Homeless in the Last Year Not on file 2022 Comments No Sex and Gender Information Value Date Recorded Sex Assigned at Female 11/16/2019 8:56 AM CDT Legal Sex Female 5:15 PM CDT Gender Identity Female 11/16/2019 8:56 AM CDT Sexual Orientation Straight 11/16/2019 8: 56 AM CDT documented as of this encounter Functional Status * Are you deaf or do you have serious difficulty hearing Answer Date of Assessment Author Status No 03/26/2023 2:44 PM Michael Leal RN Active * Are you blind or do you have serious difficulty seeing, even when wearing glasses? Answer Date of Assessment Author Status No 03/26/2023 2:44 PM Michael Leal RN Active * Do you have serious difficulty walking or climbing stairs? Answer Date of Assessment Author Status No 03/26/2023 2:44 PM Michael Leal RN Active * Do you have difficulty dressing or bathing? Answer Date of Assessment Author Status No 03/26/2023 2:44 PM Michael Leal RN Active * Because of a physical, mental, or emotional condition, do you have difficulty doing errands alone such as visiting a doctor's office or shopping? Answer Date of Assessment Author Status No 03/26/2023 2:44 PM Michael Leal RN Active * Calculated C-SSRS Risk Score (Lifetime/Recent) Answer Date of Assessment Author Status No Risk Indicated 03/07/2024 1:51 PM Dunia Wilson RN Active * [place] Suicide Severity Rating Scale (Screener/Recent Self-Report) Question Answer Date of Assessment Author Status 1. Wish to be (Past 1 Month) No 03/07/2024 1:51 PM Dunia Wilson RN Activ e 2. Non-Specific Active Suicidal Thoughts (Past 1 Month) No 03/07/2024 1:51 PM Dunia Wilson RN Activ e 6. Suicidal Behavior (Lifetime) No 03/07/2024 1:51 PM Dunia Wilson RN Activ e documented as of this encounter Mental Status * Because of a physical, mental, or emotional condition, do you have serious difficulty concentrating, remembering, or making decisions? Answer Entry Date Author Status No 03/26/2023 2:44 PM Michael Leal RN Active documented in this encounter Plan of Treatment Upcoming Encounters Date Type Department Care Team (Late st Contact Info) Description 05/24/2025 10:20 AM BENEFITS TECHNICIAN Office Visit [facility] Medical Group Multispecialty Care - [facility] [address] [facility] [place] [phone] Leonardo Washburn MD [address] [facility] [address] [place], [place] [id number] documented as of this encounter Goals Goal Patient Goal Type Associated Problems Recent Progress Patient-Stated? Author HOME TO INDEPENDENT LIVING. General No Chiquis Alicia, RN Patient will return to prior living situation and remain independent in ADLs upon discharge from hospital Lifestyle No Jeri Lara LSW Health - patient able to perform ADLs independently Lifestyle No Latrice Marie, TURN DOWN MAN Health - patient able to perform ADLs independently Lifestyle No Latrice Marie, TURN DOWN MAN documented as of this encounter Results * (ABNORMAL) BASIC METABOLIC PANEL (03/07/2024 11:47 AM BENEFITS TECHNICIAN) GLUCOSE 121(H) 70 - 99 MG/DL 03/07/2024 1:[address] [facility] BUN 36(H) 7 - 18 MG/DL 03/07/2024 1:[address] [facility] CREATININE S/P/B 5.63(HH) 0.55 - 1.02 MG/DL 03/07/2024 1:[address] [facility] Comment: Critical Result(s) Called at: 13:22:32 on 03/07/2024 by: ADRIANA WALLACE to and read back by:BILL HAQUE SODIUM S/P/B 138 136 - 145 MMOL/L 03/07/2024 1:[address] [facility] POTASSIUM S/P/B 3.9 3.5 - 5.1 MMOL/L 03/07/2024 1:[address] [facility] CHLORIDE S/P/B 108 97 - 115 MMOL/L 03/07/2024 1:[address] [facility] CO2 22.3 21 - 32 MMOL/L 03/07/2024 1:23 PM [facility] CALCIUM S/P/B 7.7(L) 8.5 - 10.1 MG/DL 03/07/2024 1:23 PM [facility] ANION GAP 7.7 2 - 10 MMOL/L 03/07/2024 1:23 PM [facility] BUN CREATININE RATIO 6.4 6 - 26 03/07/2024 1:23 PM [facility] GFR ESTIMATE 10(L) >90 ML/MIN/1.7 3 M2 03/07/2024 1:23 PM [facility] Comment: NOTE: eGFR is not calculated for patients <18 years of age or gender unknown. This is an estimated GFR calculation using the new CKD EPI creatinine equation without race and so does not require a correction factor for race. This estimated GFR should not be used for calculating drug doses. 03/07/2024 11:4 7 AM BENEFITS TECHNICIAN Mehnaz Boogie [facility] Final Resu lt [facility] [address] [place] [address], * (ABNORMAL) CBC W/DIFF AUTOMATED (03/07/2024 11:47 AM BENEFITS TECHNICIAN) WBC 7.02 4.5 - 11.0 x10'3/uL 03/07/2024 12:00 PM [facility] RBC 4.76 4.20 - 5.40 x10'6/uL 03/07/2024 12:00 PM [facility] HGB 11.6(L) 12.0 - 16.0 G/DL 03/07/2024 12:00 PM [facility] HCT 37.7(L) 38.0 - 48.0 % 03/07/2024 12:00 PM [facility] MCV 79.2(L) 81.0 - 99.0 FL 03/07/2024 12:00 PM [facility] MCH 24.4(L) 27.0 - 31.0 PG 03/07/2024 12:00 PM [facility] MCHC 30.8(L) 32.0 - 36.0 G/DL 03/07/2024 12:00 PM [facility] RDW 16.5(H) 11.5 - 14.5 % 03/07/2024 12:00 PM [facility] PLT 369 130 - 400 x10'3/uL 03/07/2024 12:00 PM [facility] MPV 10.1 9.3 - 12.2 FL 03/07/2024 12:00 PM [facility] DIFFERENTIAL TYPE AUTOMATED DIFFERENTIAL 03/07/2024 12:00 PM [facility] NEUTROPHILS % 55.0 % 03/07/2024 12:00 PM [facility] LYMPHOCYTES % 29.6 % 03/07/2024 12:00 PM [facility] MONOCYTES % 7.5 % 03/07/2024 12:00 PM [facility] EOSINOPHILS 7.3 % 03/07/2024 12:00 PM [facility] BASOPHILS 0.3 % 03/07/2024 12:00 PM [facility] IMMATURE GRANS % 0.3 % 03/07/20 12:00 PM [facility] ABS. NEUTROPHILS 3.86 1.80 - 7.70 x10'3/uL 03/07/2024 12:[address] [facility] ABS. LYMPHOCYTES 2.08 1.00 - 4.80 x10'3/uL 03/07/2024 12:[address] [facility] ABS. MONOCYTES 0.53 0.24 - 0.86 x10'3/uL 03/07/2024 12:[address] [facility] ABS. EOSINOPHILS 0.51(H) 0.04 - 0.36 x10'3/uL 03/07/2024 12:[address] [facility] ABS. BASOPHILS 0.02 0.01 - 0.08 x10'3/uL 03/07/2024 12:[address] [facility] ABS. IMMATURE GRANULOCYTES 0.02 0.00 - 0.49 x10'3/uL 03/07/2024 12:[address] [facility] 03/07/2024 11:4 7 AM BENEFITS TECHNICIAN Mehnaz Boogie [facility] Final Resu lt [facility] [address] [place] [address], * (ABNORMAL) HEMOGLOBIN, GLYCOSYLATED (03/07/2024 11:47 AM BENEFITS TECHNICIAN) HGB A1C 13.5(H) <5.7 % 03/07/2024 1:[address] [facility] Comment: ADA GUIDELINES 2010 5.7 TO 6.4% INCREASED RISK OF DIABETES > OR = 6.5% CONSISTENT WITH DIABETES ESTIMATED AVG GLUCOSE 341 mg/dL 03/07/2024 1:[address] [facility] 03/07/2024 11:4 7 AM BENEFITS TECHNICIAN us Juan Long MD LABORATORY Final Result [facility] [address] [place] [address], [place] [phone] documented in this encounter Visit Diagnoses Diagnosis Encounter for adjustment and management of vascular access device- Primary Gastroparesis Diabetes mellitus ([facility]) Type II or unspecified type diabetes mellitus without mention of complication, not stated as uncontrolled Uncontrolled type 1 diabetes mellitus with hyperglycemia, with long-term current use of insulin ([facility]) custodial (current) use of insulin ([facility]) documented in this encounter Additional Health Concerns Infection Onset Date Last Indicated Resolved Time MRSA Comment:04/27/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 Added from external infection. Source: [facility]. 02/09/24 +MRSA Nares from [facility]. 05/08/24 +MRSA Nares 10/23/2023 12/04/2024 COVID-19 Rule Out 03/12/2024 03/12/2024 03/12/2024 3:51 PM BENEFITS TECHNICIAN COVID-19 Rule Out 04/04/2024 04/04/2024 04/04/2024 5:10 PM BENEFITS TECHNICIAN COVID-19 Rule Out 04/24/2024 04/24/2024 04/24/2024 8:24 PM BENEFITS TECHNICIAN RSV 04/24/2024 04/24/2024 05/04/2024 12:3 2 AM BENEFITS TECHNICIAN COVID-19 Rule Out 05/08/2024 05/08/2024 05/08/2024 4:15 PM BENEFITS TECHNICIAN Tuberculosis Rule-Out 05/09/2024 05/09/20242024 10:09 AM BENEFITS TECHNICIAN COVID-19 Rule Out 05/17/2024 05/17/2024 05/17/2024 4:44 PM BENEFITS TECHNICIAN Respiratory Rule Out 07/05/2024 07/05/2024 025 10:03 [...] documented as of this encounter Care Teams Airplane Pilot Crop Dusting Relationship Specialty Start Date End Date Lay Cota MD PCP - General FAMILY PRACTICE 12/10/22 07/02/24 Edgardo Aldridge MD [address] [facility] [address] [address] PCP - General FAMILY PRACTICE 07/03/24 Keely Ugalde APRN [address] [place] [address] PCP - Hospice Attending 10/06/24 Keely Ugalde APRN [address] [place] [address] Nurse Practitioner PALLIATIVE CARE 10/09/24 Odilon Tellez MD [address] [address] Consulting Physician NEPHROLOGY 11/17/24 Leonardo Washburn MD [address] [address] Consulting Physician Internal Medicine Pulmonary Disease 11/17/24 Young Vasquez MD [address] [facility] [address] [place] [address] GASTROENTEROLOGY 11/17/24 Andrei Chaves MD [address] [place] [address] SURGERY 11/17/24 documented as of this encounter
--- OUTSIDE RECORDS SUMMARY | 2025-01-29 15:21 | XMS_ITS | Encounter Summary ---
Author Organization [facility] Healthcare Address [address] [place] [address] Care Team Providers Care Manager Community Relations Name Role Phone Andrei Chaves MD PhD Unavailable [phone] Olivia Phelps MD Unavailable Edgardo Aldridge MD Primary Care Provider [phone] Odilon Tellez MD Unavailable [phone] Ayaka Thomas MD Unavailable [phone] Yumi Jones NP Unavailable [phone] Odilon Tellez MD Unavailable [phone] Jaimie Glez RN Unavailable [phone] Reason for Visit * Reason Onset Date Comments req a cb about surg 01/24/2025 FYI 01/24/2025 Encounter Details Date Type Department Care Team (Late st Contact Info) Description 01/24/2025 Telephone [facility] Medical Group Orthopedics and Sports Medicine [address] [facility] [address] [place] [address] Sussy Garcia PA [address] [place] [address] req a cb about surg; FYI Social History Tobacco Use Types Packs/Day Years [...] often do you attend chur ch or anabaptist services? Never 11/07/2024 Do you belong to any clubs o r organizations such as rastafari groups, unions, fraternal or athletic groups, or [...] Date Recorded PHQ-2 Total Score 0 01/09/2025 [facility] of Occupat ional Health - Occupational Stress [...] place to sleep or slept in a mcfp (including now)? No 08/30/2023 PHQ-9 Answer Date [...] any time in the past 12 m [facility], were you homeless or living in a mcfp (including now)? No 11/07/2024 Social Connection and Isolation Panel Answer Date Recorded In a typical week, how many times do you talk on the phone with family, friends, or neighbors? More than three times a week 01/17/2025 How often do you get togethe r with friends or relatives? More than three times a week 01/17/2025 How often do you attend chur ch or anabaptist services? Never 01/17/2025 Do you belong to any clubs o r organizations such as rastafari groups, unions, fraternal or athletic groups, or [...] any time in the past 12 m [facility], were you homeless or living in a mcfp (including now)? 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 States she has been admitted to [facility] since 01/15/25 and they were going to d/c her later today so she could have her surgery tomorrow, not she is not sure when she will be d/c'd since surgery was cx'd. 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 Source: [facility]. 08/20/2024 CP-CAN INTAKE WORKER Comment:Added from external infection. Source: [facility]. Kleb pneumo [facility] 10/31/2024 10/31/2024 documented as of this encounter Care Teams Manager Community Relations Relationship Specialty Start Date End Date Edgardo Aldridge MD [address] [employer] [facility] [address] [place] [address] PCP - General Family Medicine 04/02/23 Andrei Chaves MD PhD [address] [address] Referring Physician General Surgery 03/17/23 Olivia Phelps MD [address] [employer] [facility] [address] 4 [place] [address] Consulting Physician Nephrology 03/17/23 Odilon Tellez MD [address] [facility] [address] 4 [place] [address] Referring Physician Nephrology 11/12/23 Ayaka Thomas MD [address] [facility] [address] 4 [place] [address] Fellow Internal Medicine 12/17/23 Yumi Jones NUCLEAR MEDICINE CHIEF TECHNOLOGIST [address] [facility] [address] [place] [address] Nurse Practitioner Hospice and Palliative Medicine 08/16/23 Odilon Tellez MD [address] [facility] [address] [place] [address] Consulting Physician Nephrology 12/05/24 Jaimie Glez, KADY [address] [place] [address] [address] [place] [address] Automotive Parts Person 01/29/25 documented as of this encounter
--- OUTSIDE RECORDS SUMMARY | 2025-01-29 15:21 | XMS_ITS | Encounter Summary ---
Author Organization [facility] Healthcare Address [address] [place] [address] Care Team Providers Care Automatic Riveting Machine Operator Name Role Phone Andrei Chaves MD PhD Unavailable [phone] Olivia Phelps MD Unavailable [phone] Edgardo Aldridge MD Primary Care Provider [phone] Odilon Tellez MD Unavailable [phone] Ayaka Thomas MD Unavailable Yumi Jones NP Unavailable [phone] Mendel Bowling RN Unavailable [phone] Odilon Tellez MD Unavailable [phone] Mavis Barahona RN Unavailable [phone] Mahnaz Garcia RN Unavailable Jaimie Glez RN Unavailable Encounter Details Date Type Department Care Team (Late st Contact Info) Description 12/29/2024 Results Follow-Up [facility] Medical Group Family Medicine at [address] [place] [address] Edgardo Aldridge MD [address] [place] [address] [address] [place] [address] SCAN - RADIOLOGY/IMAGING Social History Tobacco Use Types Packs/Day Years Used Date Smoking Tobacco: Never Smokeless Tobacco: Never Alcohol Use Standard Drinks/Week Comments Not Currently 0 (1 standard drink = 0.6 oz pur e alcohol) [facility] Utilities Answer Date Recorded In the [...] any clubs o r organizations such as congregational groups, unions, fraternal or athletic groups, or [...] Date Recorded PHQ-2 Total Score 0 11/01/2024 [facility] of Occupat ional Health - Occupational Stress [...] to sleep or slept in a senior care (including now)? No 08/30/2023 PHQ-9 Answer Date [...] any time in the past 12 m [facility], were you homeless or living in a senior care (including now)? 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 Source: [facility]. 08/20/2024 CP-RESTAURANT AND BAR MANAGER Comment:Added from external infection. Source: [facility]. Kleb pneumo C 10/31/2024 10/31/2024 documented as of this encounter Care Teams Automatic Riveting Machine Operator Relationship Specialty Start Date End Date Edgardo Aldridge MD [address] [facility] [address] [place] [address] PCP - General Family Medicine 04/02/23 Andrei Chaves MD PhD [address] [facility] [address] [place] [address] Referring Physician General Surgery 03/17/23 Olivia Phelps MD [address] [facility] [address] [place] [address] Consulting Physician Nephrology 03/17/23 Odilon Tellez MD [address] [facility] [address] [place] [address] Referring Physician Nephrology 11/12/23 Ayaka Thomas MD [address] [facility] [address] [place] [address] Fellow Internal Medicine 12/17/23 Yumi Jones PLANT MANAGER [address] [facility] [address] [place] [address] Nurse Practitioner Hospice and Palliative Medicine 08/16/23 Mendel Bowling, KADY [address] [place] [address] [address] [place] [address] Assistant Corporation Counsel 11/07/24 01/04/25 Odilon Tellez MD [address] [facility] [address] [place] [address] Consulting Physician Nephrology 12/05/24 Mavis Barahona, RN [address] [facility] [address] [place] [address] Management Engineer 12/20/24 Mahnaz Garcia RN [address] [place] [address] [address] [place] [address] Assistant Corporation Counsel 01/15/25 01/15/25 Jaimie Glez RN [address] [place] [address] [address] [place] [address] Assistant Corporation Counsel 01/29/25 documented as of this encounter
--- OUTSIDE RECORDS SUMMARY | 2025-01-29 15:21 | XMS_ITS | Encounter Summary ---
Author Organization [facility] Facility Care Team Providers Care Pharmacy Stock Clerk Name Role Phone Unknown, Notinfile Primary Care Provider Unavail able Lay Villalta MD Primary Care Provider [phone] Tremayne Kebede MD Unavailable [phone] Georgia Mcbride DOG AND CAT FOOD COOK Unavailable [phone] Miscellaneous, Not In File Unavailable Unava ilable Eun Camacho Primary Care Provider + Cony Pemberton GROUND SUPPORT EQUIPMENT ASSEMBLER Unavailable [phone] Antonette Vernon RN Unavailable [phone] Andrei Chaves MD PhD Unavailable [phone] Olivia Phelps MD Unavailable [phone] Edgardo Aldridge MD Primary Care Provider [phone] Odilon Tellez MD Unavailable [phone] Miscellaneous, Not In File Unavailable Unava ilable Ct Boggs GROUND SUPPORT EQUIPMENT ASSEMBLER Unavailable [phone] Odilon Tellez MD Unavailable [phone] Tracey Felix RN Unavailable [phone] Ayaka Thomas MD Unavailable [phone] Yumi Jones NP Unavailable [phone] Ruthy Leahy GROUND SUPPORT EQUIPMENT ASSEMBLER Unavailable Unavaila ble Feli Boggs RN Unavailable [phone] Mendel Bowling RN Unavailable [phone] Leslie Baptiste [facility] Unavailable [phone] Mendel Bowling RN Unavailable [phone] Odilon Tellez MD Unavailable [phone] Mavis Barahona RN Unavailable [phone] Mahnaz Garcia RN Unavailable [phone] Jaimie Glez RN Unavailable [phone] Encounter Details Date Type Department Care Team (Latest Contact Info) Description 06/07/2018 Orders Only [facility] CLINCONV ProviderSotero MD [address] [place] [address] Social History Tobacco Use Types Packs/Day Years Used Date Smoking Tobacco: Never Comments Unknown Sex and Gender Information Value Date Recorded Sex Assigned at Not on file Legal Sex Female 9:16 AM BONE GRINDER Gender Identity Not on file Sexual Orientation Not on file documented as of this encounter Plan of Treatment Not on file documented as of this encounter Procedures Procedure Name Priority Date/Time Associated Diagnosis Comments SCAN - LABS 2018 12:00 AM BONE GRINDER SCAN - LABS 06/13/2018 12:00 AM BONE GRINDER SCAN - LABS 06/08/2018 12:00 AM BONE GRINDER documented in this encounter Results * SCAN - LABS (2018 12:00 AM BONE GRINDER) Narrative 2018 12:00 AM BONE GRINDER Ordered by an unspecified provider. Historical Provider Final Res ult * SCAN - LABS (06/13/2018 12:00 AM BONE GRINDER) Narrative 06/13/2018 12:00 AM BONE GRINDER Ordered by an unspecified provider. Historical Provider Final Res ult * SCAN - LABS (06/08/2018 12:00 AM BONE GRINDER) Narrative 06/08/2018 12:00 AM BONE GRINDER Ordered by an unspecified provider. Historical Provider [...] CDT COVID19 02/02/2020 02/02/2020 02/19/2020 3:05 AM BONE GRINDER COVID: Recovered Comment:Added based on recent COVID [...] COVID: Suspected 06/15/2023 06/15/2023 06/15/2023 5:53 PM BONE GRINDER C. difficile suspected 06/24/2023 06/24/202306/26 6:03 AM CDT COVID: Suspected 06/27/2023 06/27/2023 06/27/2023 7:07 PM CDT COVID: Suspected 07/10/2023 07/10/2023 07/10/2023 6:50 AM CDT COVID: Suspected 07/13/2023 07/13/2023 07/13/2023 9:45 PM CDT MRSA Comment:[facility] 06/21/24 10/23/2023 02/09/2024 06/21/2024 6:[address] C. 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 Source: [facility]. 08/20/2024 Carbapenemase, Unspecified Comment:Added from external infection. Source: [facility]. Kleb pneumo [facility] 09/23/2024 10/31/2024 3:07 PM C DT CP-OFFICER LIEUTENANT Comment:Added from external infection. Source: [facility]. Kleb pneumo [facility] 10/31/2024 10/31/2024 documented as of this encounter Care Teams Pharmacy Stock Clerk Relationship Specialty Start Date End Date Unknown, Notinfile PCP - General 12/28/16 08/23/18 Lay Villalta MD PCP - General Family Medicine 08/24/18 07/17/21 Eun Camacho PA PCP - General Family Medicine 07/18/21 03/08/23 Edgardo Aldridge MD [address] [facility] [address] or 4 [place] [address] PCP - General Family Medicine 04/02/23 Tremayne Kebede MD Consulting Physician Gastroenterology 02/05/20 3 Georgia Mcbride DOG AND CAT FOOD COOK [address] [facility] [address] [place] [address] ACO Care Water Softener Servicer 11/28/20 12/19/20 Miscellaneous, Not In File 07/17/21 03/16/23 Cony Pemberton LCSW 4554 [facility] ([facility]) Mailstop [phone] [place] [address] SHOP Outpatient Clearance Diver 12/07/22 12/07/22 Antonette Vernon RN [address] [facility] [address] [place] [address] SHOP Outpatient Clearance Diver 12/08/22 01/05/23 [place] [address] [place] [address] [address] [place] [address] Referring Physician General Surgery 03/17/23 Olivia Phelps MD [address] [facility] [address] 4 [place] [address] Consulting Physician Nephrology 03/17/23 Odilon Tellez MD [address] [facility] [address] [place], [place] [address] Consulting Physician Nephrology 05/01/23 12/04/24 Miscellaneous, Not In File 07/08/23 01/24/24 Ct Boggs GROUND SUPPORT EQUIPMENT ASSEMBLER [address] [place] [address] ([facility]) Mailstop [phone] [place] [address] SHOP Outpatient Clearance Diver 07/09/23 08/05/23 Odilon Tellez MD [address] [facility] [address] 4 [place] [address] Referring Physician Nephrology 11/12/23 Tracey Felix, KADY [address] [facility] [address] [place] [address] Activated Sludge Attendant 11/12/23 11/17/23 Ayaka Thomas MD [address] [facility] [address] [place] [address] Fellow Internal Medicine 12/17/23 Yumi Jones NP [address] [place] [address] [facility] [address] [place] [address] Nurse Practitioner Hospice and Palliative Medicine 08/16/23 Ruthy Leahy LCSW Cardiac Catheterization Technician 12/31/23 02/22/24 Feli Boggs RN [address] [place] [address] [address] [place] [address] Lockstitch Zipper Setter 12/31/23 01/02/24 Mendel Bowling RN [address] [place] [address] [address] [place] [address] Lockstitch Zipper Setter 01/03/24 03/23/24 Leslie Baptiste [address] [place] [address] Pharmacist Pharmacy 01/13/24 02/03/24 Mendel Bowling RN [address] [place] [address] [address] [place] [address] Lockstitch Zipper Setter 11/07/24 01/04/25 Odilon Tellez MD [address] [facility] [address] [place] [address] Consulting Physician Nephrology 12/05/24 Mavis Barahona, RN [address] [facility] [address] [place] [address] Activated Sludge Attendant 12/20/24 01/08/25 Mahnaz Garcia, KADY [address] [place] [address] [address] [place] [address] Lockstitch Zipper Setter 01/15/25 01/15/25 Jaimie Glez, KADY [address] [place] [address] [address] [place] [address] Lockstitch Zipper Setter 01/29/25 documented as of this encounter
--- OUTSIDE RECORDS SUMMARY | 2025-01-29 15:21 | XMS_ITS | Encounter Summary ---
Author Organization [facility] Address [address] [place] [address] Phone Care Team Providers Care Editor Greeting Card Name Role Phone Andrei Chaves MD PhD Unavailable [phone] Olivia Phelps MD Unavailable [phone] Edgardo Aldridge MD Primary Care Provider [phone] Odilon Tellez MD Unavailable [phone] Ayaka Thomas MD Unavailable [phone] Yumi Jones NP Unavailable [phone] Mendel Bowling RN Unavailable [phone] Odilon Tellez MD Unavailable [phone] Mavis Barahona RN Unavailable [phone] Mahnaz Garcia RN Unavailable [phone] Jaimie Glez RN Unavailable [phone] Encounter Details Date Type Department Care Team (Late st Contact Info) Description 12/28/2024 Results Follow-Up [facility] Medicine Gastroenterology [address] [facility] Advanced Medicine 12th [place] [address] [place] [address] Young Vasquez MD 1 [facility] [address] [place] [address] Surgical pathology Social History Tobacco Use Types Packs/Day Years Used Date Smoking Tobacco: Never Smokeless Tobacco: Never Alcohol Use Standard Drinks/Week Comments Not Currently 0 (1 standard drink = 0.6 oz pur e alcohol) [facility] Utilities Answer Date Recorded In the past 12 months has e electric, gas, oil, or water company [...] often do you attend chur ch or protestant services? 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 Source: [facility]. 08/20/2024 CP-DATA SUPPORT ANALYST Comment:Added from external infection. Source: [facility]. Kleb pneumo [facility] 10/31/2024 10/31/2024 documented as of this encounter Care Teams Editor Greeting Card Relationship Specialty Start Date End Date Edgardo Aldridge MD [address] [facility] [address] 4 [place] [address] PCP - General Family Medicine 04/02/23 Andrei Chaves MD PhD [address] [facility] [address] [address] Referring Physician General Surgery 03/17/23 Olivia Phelps MD [address] [facility] [address] [place] [address] Consulting Physician Nephrology 03/17/23 Odilon Tellez MD [address] [facility] [address] [place] [address] Referring Physician Nephrology 11/12/23 Ayaka Thomas MD [address] [facility] [address] [place] [address] Fellow Internal Medicine 12/17/23 Yumi Jones NP [address] [place] [address] [address] [place] [address] Nurse Practitioner Hospice and Palliative Medicine 08/16/23 Mendel Bowling, RN [address] [place] [address] [address] [place] [address] Computer Game Tester 11/07/24 01/04/25 Odilon Tellez MD [address] [facility] [address] [place] [address] Consulting Physician Nephrology 12/05/24 Mavis Barahona, RN 45[address] [facility] [address] [place] [address] Chair Car Driver 12/20/24 Mahnaz Garcia RN [address] [place] [address] [address] [place] [address] Computer Game Tester 01/15/25 01/15/25 Jaimie Glez RN [address] [place] [address] [address] [place] [address] Computer Game Tester 01/29/25 documented as of this encounter
--- OUTSIDE RECORDS SUMMARY | 2025-01-29 15:21 | XMS_ITS | Encounter Summary ---
Author Organization [facility] Facility Care Team Providers Care Typewriter Assembler Name Role Phone Unknown, Notinfile Primary Care Provider Unavail able Lay Villalta MD Primary Care Provider [phone] Tremayne Kebede MD Unavailable [phone] Georgia Mcbride THREAD TWISTER Unavailable [phone] Miscellaneous, Not In File Unavailable Unava ilable Eun Camacho Primary Care Provider + Cony Pemberton CORPORATE SPECIALIST Unavailable [phone] Antonette Vernon RN Unavailable [phone] Andrei Chaves MD PhD Unavailable [phone] Olivia Phelps MD Unavailable [phone] Edgardo Aldridge MD Primary Care Provider [phone] Odilon Tellez MD Unavailable [phone] Miscellaneous, Not In File Unavailable Unava ilable Ct Boggs CORPORATE SPECIALIST Unavailable [phone] Odilon Tellez MD Unavailable [phone] Tracey Felix RN Unavailable [phone] Ayaka Thomas MD Unavailable [phone] Yumi Jones NP Unavailable [phone] TosinRuthy wilder CORPORATE SPECIALIST Unavailable Unavaila ble Feli Boggs RN Unavailable [phone] Mendel Bowling RN Unavailable [phone] Leslie Baptiste [facility] Unavailable Mendel Bowling RN Unavailable [phone] Odilon Tellez MD Unavailable [phone] Mavis Barahona RN Unavailable [phone] Mahnaz Garcia RN Unavailable [phone] Jaimie Glez RN Unavailable [phone] Encounter Details Date Type Department Care Team (Latest Contact Info) Description 06/10/2018 Orders Only MMG CLINCONV Provider, MD Sotero [address] [place] [address] Social History Tobacco Use Types Packs/Day Years Used Date Smoking Tobacco: Never Comments Unknown Sex and Gender Information Value Date Recorded Sex Assigned at Not on file Legal Sex Female 9:16 AM DIRECTOR MATERNAL CHILD Gender Identity Not on file Sexual Orientation Not on file documented as of this encounter Plan of Treatment Not on file documented as of this encounter Procedures Procedure Name Priority Date/Time Associated Diagnosis Comments SCAN - LABS 06/15/2018 12:00 AM DIRECTOR MATERNAL CHILD documented in this encounter Results * SCAN - LABS (06/15/2018 12:00 AM DIRECTOR MATERNAL CHILD) Narrative 06/15/2018 12:00 AM DIRECTOR MATERNAL CHILD Ordered by an unspecified provider. Historical Provider [...] CDT COVID19 02/02/2020 02/02/2020 02/19/2020 3:05 AM DIRECTOR MATERNAL CHILD COVID: Recovered Comment:Added based on recent COVID [...] COVID: Suspected 06/15/2023 06/15/2023 06/15/2023 5:53 PM DIRECTOR MATERNAL CHILD C. difficile suspected 06/24/2023 06/24/202306/26 6:03 AM CDT COVID: Suspected 06/27/2023 06/27/2023 06/27/2023 7:07 PM CDT COVID: Suspected 07/10/2023 07/10/2023 07/10/2023 6:50 AM CDT COVID: Suspected 07/13/2023 07/13/2023 07/13/2023 9:45 PM CDT MRSA Comment:MRSA Isolation [facility] 06/21/24 10/23/2023 02/09/2024 06/21/2024 6:[address] C. 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 Source: [facility]. 08/20/2024 Carbapenemase, Unspecified Comment:Added from external infection. Source: [facility]. Kleb pneumo [facility] 09/23/2024 10/31/2024 3:07 PM C DT CP-PRESSROOM FOREMAN Comment:Added from external infection. Source: [facility]. Kleb pneumo [facility] 10/31/2024 10/31/2024 documented as of this encounter Care Teams Typewriter Assembler Relationship Specialty Start Date End Date Unknown, Notinfile PCP - General 12/28/16 08/23/18 Lay Villalta MD PCP - General Family Medicine 08/24/18 07/17/21 Eun Camacho PA PCP - General Family Medicine 07/18/21 03/08/23 Edgardo Aldridge MD [address] [facility] [address] 4 [place] [address] PCP - General Family Medicine 04/02/23 Tremayne Kebede MD Consulting Physician Gastroenterology 02/05/20 3 Georgia Mcbride LPN [address] [facility] [address] [place] [address] ACO Care Smutter 11/28/20 12/19/20 Miscellaneous, Not In File 07/17/21 03/16/23 Cony Pemberton LCSW [address] [facility] ([facility]) Mailstop [phone] [place] [address] SHOP Outpatient University Controller 12/07/22 12/07/22 Antonette Vernon, KADY [address] [facility] [address] [place] [address] SHOP Outpatient University Controller 12/08/22 01/05/23 Andrei Chaves MD PhD [address] [facility] [address] [place] [address] Referring Physician General Surgery 03/17/23 Olivia Phelps MD [address] [facility] [address] [place], [place] [address] Consulting Physician Nephrology 03/17/23 Odilon Tellez MD [address] [facility] [facility] [address] [place], [place] [address] Consulting Physician Nephrology 05/01/23 12/04/24 Miscellaneous, Not In File 07/08/23 01/24/24 Ct Boggs, [facility] [address] [facility] ([facility]) Mailstop [phone] [place] [address] SHOP Outpatient University Controller 07/09/23 08/05/23 Odilon Tellez MD [address] [facility] [facility] [place], [place] [address] Referring Physician Nephrology 11/12/23 Tracey Felix, KADY [address] [place] [address] Senior Budget Analyst 11/12/23 11/17/23 Ayaka Thomas MD [address] [facility] [address] [place] [address] Fellow Internal Medicine 12/17/23 Yumi Jones NP 1 [facility] [address] [place] [address] Nurse Practitioner Hospice and Palliative Medicine 08/16/23 Ruthy Leahy LCSW Field Organizer 12/31/23 02/22/24 Feli Boggs, RN [address] [place] [address] [address] [place] [address] Body Coverer 12/31/23 01/02/24 Mendel Bowling, KADY [address] [place] [address] [address] [place] [address] Body Coverer 01/03/24 03/23/24 Leslie Baptiste, [address] [place] [address] Pharmacist Pharmacy 01/13/24 02/03/24 Mendel Bowling, KADY [address] [place] [address] [address] [place] [address] Body Coverer 11/07/24 01/04/25 Odilon Tellez MD [address] [facility] [address] [place] [address] Consulting Physician Nephrology 12/05/24 Mavis Barahona, RN [address] [facility] [address] [place] [address] Senior Budget Analyst 12/20/24 01/08/25 Mahnaz Garcia, RN [address] [place] [address] [address] [place] [address] Body Coverer 01/15/25 01/15/25 Jaimie Glez RN [address] [place] [address] [address] [place] [address] Body Coverer 01/29/25 documented as of this encounter
--- OUTSIDE RECORDS SUMMARY | 2025-01-29 15:21 | XMS_ITS | Encounter Summary ---
Author Organization [facility] Address [address] [place] [address] Phone Care Team Providers Care Milk Collector Name Role Phone Andrei Chaves MD PhD Unavailable [phone] Olivia Phelps MD Unavailable [phone] Edgardo Aldridge MD Primary Care Provider Odilon Tellez MD Unavailable [phone] Ayaka Thomas MD Unavailable Yumi Jones NP Unavailable [phone] Mendel Bowling RN Unavailable [phone] Odilon Tellez MD Unavailable [phone] Mavis Barahona RN Unavailable [phone] Mahnaz Garcia RN Unavailable [phone] Jaimie Glez RN Unavailable [phone] Encounter Details Date Type Department Care Team (Late st Contact Info) Description 12/26/2024 Results Follow-Up [facility] Medicine Gastroenterology [address] [facility] Advanced Medicine 12th [place] [address] [place] [address] Young Vasquez MD 1 [facility] [address] [place] [address] CT Abdomen and Pelvis Enterography W Contrast Social History Tobacco Use Types Packs/Day Years Used Date Smoking Tobacco: Never Smokeless Tobacco: Never Alcohol Use Standard Drinks/Week Comments Not Currently 0 (1 standard drink = 0.6 oz pur e alcohol) [facility] Utilities Answer Date Recorded In the past 12 months has e electric, gas, oil, or water [employer] threatened to shut off services in your [...] often do you attend chur ch or quaker services? Never 11/07/2024 Do you belong to any clubs o r organizations such as hindu groups, unions, fraternal or athletic groups, or [...] Date Recorded PHQ-2 Total Score 0 11/01/2024 [facility] of Occupat ional Health - [...] any time in the past 12 m [facility], were you homeless or living in a half-way (including now)? 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 Source: [facility]. 08/20/2024 CP-OPERATIONS LIAISON Comment:Added from external infection. Source: [facility]. Kleb pneumo [facility] 10/31/2024 10/31/2024 documented as of this encounter Care Teams Milk Collector Relationship Specialty Start Date End Date Edgardo Aldridge MD [address] [facility] [address] 4 [place] [address] PCP - General Family Medicine 04/02/23 Andrei Chaves MD PhD [address] [facility] [address] [address] Referring Physician General Surgery 03/17/23 Olivia Phelps MD [address] [facility] [address] [place] [address] Consulting Physician Nephrology 03/17/23 Odilon Tellez MD [address] [facility] [address] 4 [place] [address] Referring Physician Nephrology 11/12/23 Ayaka Thomas MD [address] [facility] [address] [place] [address] Fellow Internal Medicine 12/17/23 Yumi Jones ASSISTANT SALES MANAGER [address] [place] [address] [address] [place] [address] Nurse Practitioner Hospice and Palliative Medicine 08/16/23 Mendel Bowling, RN [address] [place] [address] [address] [place] [address] Information Security Director 11/07/24 01/04/25 Odilon Tellez MD [address] [facility] [address] [place] [address] Consulting Physician Nephrology 12/05/24 Mavis Barahona, RN 4590 [facility] 3401 [place] [address] Pourer 12/20/24 Mahnaz Garcia, KADY [address] [place] [address] [address] [place] [address] Information Security Director 01/15/25 01/15/25 Jaimie Glez, KADY [address] [place] [address] [address] [place] [address] Information Security Director 01/29/25 documented as of this encounter
--- OUTSIDE RECORDS SUMMARY | 2025-01-29 15:21 | XMS_ITS | Encounter Summary ---
Author Organization [facility] Address [facility] [place] [address] Care Team Providers Care Immunopathologist Name Role Phone Lay Cota MD Primary Care Provider [phone] Edgardo Aldridge MD Primary Care Provider [phone] Keely Ugalde SHERIFF'S SERGEANT Unavailable [phone] Keely Ugalde SHERIFF'S SERGEANT Unavailable [phone] Odilon Tellez MD Unavailable [phone] Leonardo Washburn MD Unavailable [phone] Young Vasquez MD Unavailable [phone] Andrei Chaves MD Unavailable [phone] Encounter Details Date Type Department Care Team (Late st Contact Info) Description 03/07/2024 Prep for Procedure [place] [facility] Pre-Admission Testing [facility] [place] [address] Juan Long MD [address] [place] [id number] Social History Tobacco Use Types Packs/Day Years Used Date Smoking Tobacco: Never Smokeless Tobacco: Never Alcohol Use Standard Drinks/Week Comments Not Currently 0 (1 standard drink = 0.6 oz pur e alcohol) occasionally [facility] Utilities Answer Date Recorded In the past 12 months has [employer] gas, oil, or water Status [employer] threatened to shut off services in your [...] How often do you attend chur or latter-day services? Never 12/31/2022 Do you belong to any clubs o r organizations such as mormon groups, unions, fraternal or athletic groups, or [...] Recorded Patient Health Questionnaire-2 Score 0 12/31/2022 [facility] Occup[facility] ional Health - Occupational Stress [...] 1:51 PM Dunia Wilson RN Active * [place] Suicide Severity Rating Scale (Screener/Recent Self-Report) Question [...] st Contact Info) Description 05/24/2025 10:20 AM INVENTORY MANAGEMENT SPECIALIST Office Visit [facility] Multispecialty Care - [facility] [address] [place] [id number] Leonardo Washburn MD [address] [place] [address] documented as of this encounter Goals Goal Patient Goal Type Associated Problems Recent Progress Patient-Stated? Author HOME TO INDEPENDENT LIVING. General No Chiquis Alicia, RN Patient will return to prior living situation and remain independent in ADLs upon discharge from hospital Lifestyle No Jeri Lara LSW Health - patient able to perform ADLs independently Lifestyle No Latrice Marie, ROD PULLER AND COILER Health - patient able to perform ADLs independently Lifestyle No Latrice Marie, ROD PULLER AND COILER documented as of this encounter Visit Diagnoses Not on filedocumented in this encounter Additional Health Concerns Infection Onset Date Last Indicated Resolved Time MRSA Comment:04/27/23 +MRSA Urine 10/23/23 +MRSA from [facility]. Added from external infection. Source: [facility] Physicians. 02/09/24 +MRSA Nares from [facility]. 05/08/24 +MRSA Nares 10/23/2023 12/04/2024 COVID-19 Rule Out 03/12/2024 03/12/2024 03/12/2024 3:51 PM INVENTORY MANAGEMENT SPECIALIST COVID-19 Rule Out 04/04/2024 04/04/2024 04/04/2024 5:10 PM INVENTORY MANAGEMENT SPECIALIST COVID-19 Rule Out 04/24/2024 04/24/2024 04/24/2024 8:24 PM INVENTORY MANAGEMENT SPECIALIST RSV 04/24/2024 04/24/2024 05/04/2024 12:3 2 AM INVENTORY MANAGEMENT SPECIALIST COVID-19 Rule Out 05/08/2024 05/08/2024 05/08/2024 4:15 PM INVENTORY MANAGEMENT SPECIALIST Tuberculosis Rule-Out 05/09/2024 05/09/20242024 10:09 AM INVENTORY MANAGEMENT SPECIALIST COVID-19 Rule Out 05/17/2024 05/17/2024 05/17/2024 4:44 PM INVENTORY MANAGEMENT SPECIALIST Respiratory Rule Out 07/05/2024 07/05/2024 025 10:03 [...] documented as of this encounter Care Teams Immunopathologist Relationship Specialty Start Date End Date Lay Cota MD PCP - General FAMILY PRACTICE 12/10/22 07/02/24 Edgardo Aldridge MD [address] [address] PCP - General FAMILY PRACTICE 07/03/24 Keely Ugalde, SHERIFF'S SERGEANT [address] [place] [address] PCP - Hospice Attending 10/06/24 Keely Ugalde, SHERIFF'S SERGEANT 1 [place] [address] Nurse Practitioner PALLIATIVE CARE 10/09/24 Odilon Tellez MD [address] [address] Consulting Physician NEPHROLOGY 11/17/24 Leonardo Washburn MD [address] [address] [place] [address] Consulting Physician Internal Medicine Pulmonary Disease 11/17/24 Young Vasquez MD [address] [facility] 8 [place] [address] GASTROENTEROLOGY 11/17/24 Andrei Chaves MD [address] [place] [address] SURGERY 11/17/24 documented as of this encounter
--- OUTSIDE RECORDS SUMMARY | 2025-01-29 15:21 | XMS_ITS | Encounter Summary ---
Author Organization [facility] Healthcare Address [address] [place] [address] Care Team Providers Care Public Affairs Specialist Name Role Phone Andrei Chaves MD PhD Unavailable [phone] Olivia Phelps MD Unavailable [phone] Edgardo Aldridge MD Primary Care Provider [phone] Odilon Tellez MD Unavailable [phone] Ayaka Thomas MD Unavailable [phone] Yumi Jones NP Unavailable [phone] Odilon Tellez MD Unavailable [phone] Jaimie Glez RN Unavailable [phone] Reason for Visit * Reason Onset Date Comments Scheduling Appointments 01/29/2025 Encounter Details Date Type Department Care Team (Late st Contact Info) Description 01/29/2025 Telephone [facility] [address] [facility] Health 3rd Floor [address] [place] [address] Chyna Kay MA Scheduling Appointments Social History Tobacco Use Types Packs/Day Years [...] often do you attend chur ch or jainism services? Never 11/07/2024 Do you belong to [...] Date Recorded PHQ-2 Total Score 0 01/09/2025 [facility] of Occupat ional [facility] - Occupational Stress Questionnaire Answer [...] any time in the past 12 m [facility], were you homeless or living in a penitentiary (including now)? No 11/07/2024 Social Connection and Isolation Panel Answer Date Recorded In a typical week, how many times do you talk on the phone with family, friends, or neighbors? More than three times a week 01/17/2025 How often do you get togethe r with friends or relatives? More than three times a week 01/17/2025 How often do you attend chur ch or jainism services? Never 01/17/2025 Do you belong to [...] any time in the past 12 m [facility], were you homeless or living in a penitentiary (including now)? No 01/17/2025 [facility] Utilities Answer Date Recorded In the [...] on file Legal Sex Female 9:16 AM RECORDS SECTION SUPERVISOR Gender Identity Not on file Sexual Orientation Not on file documented as of this encounter Miscellaneous Notes * Telephone Encounter - Chyna Kay MA - 01/29/2025 10:23 AM CDT I called and LVM for Lynette to call for wound care appt/dmm documented in this encounter Plan of Treatment Not on file documented as of this encounter Visit Diagnoses Not on filedocumented in this encounter Additional Health Concerns Infection Onset Date Last Indicated 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 Source: [facility]. 08/20/2024 CP-BACK SHOE OPERATOR Comment:Added from external infection. Source: [facility]. Kleb pneumo [facility] 10/31/2024 10/31/2024 documented as of this encounter Care Teams Public Affairs Specialist Relationship Specialty Start Date End Date Edgardo Aldridge MD [address] [facility] [address] or 4 [place] [address] PCP - General Family Medicine 04/02/23 Andrei Chaves MD PhD [address] [facility] [address] [place] [address] Referring Physician General Surgery 03/17/23 Olivia Phelps MD [address] [facility] [address] or 4 [place] [address] Consulting Physician Nephrology 03/17/23 Odilon Tellez MD [address] [facility] [address] or 4 [place] [address] Referring Physician Nephrology 11/12/23 Ayaka Thomas MD [address] [facility] [address] or 4 [place] [address] Fellow Internal Medicine 12/17/23 Yumi Jones ACCOUNTANT AUDITOR [address] [facility] [address] [place] [address] Nurse Practitioner Hospice and Palliative Medicine 08/16/23 Odilon Tellez MD [address] [facility] [address] [place] [address] Consulting Physician Nephrology 12/05/24 Jaimie Glez, KADY [address] [place] [address] [address] [place] [address] Manager Contract 01/29/25 documented as of this encounter
--- OUTSIDE RECORDS SUMMARY | 2025-01-29 15:21 | XMS_ITS | Encounter Summary ---
Author Organization [facility] Healthcare Address [address] [place] [address] Care Team Providers Care Rn Physician Office Name Role Phone Andrei Chaves MD PhD Unavailable [phone] Olivia Phelps MD Unavailable [phone] Edgardo Aldridge MD Primary Care Provider Odilon Tellez MD Unavailable [phone] Ayaka Thomas MD Unavailable [phone] Yumi Jones NP Unavailable [phone] Odilon Tellez MD Unavailable [phone] Jaimie Glez RN Unavailable [phone] Encounter Details Date Type Department Care Team (Late st Contact Info) Description 01/29/2025 Telephone [facility] Medical Group Family Medicine at [address] [place] [phone] Edgardo Aldridge MD [address] [place] [address] [address] [place] [address] Social History Tobacco Use Types Packs/Day Years [...] often do you attend chur ch or adventist services? Never 11/07/2024 Do you belong to any clubs o r organizations such as jain groups, unions, fraternal or athletic groups, or [...] Date Recorded PHQ-2 Total Score 0 01/09/2025 [facility] Occupat ional Health [...] in a long term (including now)? No 08/30/2023 PHQ-9 Answer Date [...] any time in the past 12 m [facility], were you homeless or living in a long term (including now)? No 11/07/2024 Social Connection and Isolation Panel Answer Date Recorded In a typical week, how many times do you talk on the phone with family, friends, or neighbors? More than three times a week 01/17/2025 How often do you get togethe r with friends or relatives? More than three times a week 01/17/2025 How often do you attend chur ch or adventist services? Never 01/17/2025 Do you belong to any clubs o r organizations such as jain groups, unions, fraternal or athletic groups, or [...] in a long term (including now)? No 01/17/2025 [facility] Utilities Answer Date Recorded In the [...] on file Legal Sex Female 9:16 AM INTERNATIONAL BANKER Gender Identity Not on file Sexual Orientation Not on file documented as of this encounter Miscellaneous Notes * Telephone Encounter - Jodi Boggs - 01/29/2025 12:13 PM CDT Patient No Showed her appt on 01/29/2025 It would have been her Fired Letter Per Dr Aldridge no Fired is to be sent documented in this encounter Plan of Treatment Not on file documented as of this encounter Visit Diagnoses Not on filedocumented in this encounter Additional Health Concerns Infection Onset Date Last Indicated 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 Source: [facility]. 08/20/2024 CP-CLOTHING DESIGNER Comment:Added from external infection. Source: [facility]. Kleb pneumo C 10/31/2024 10/31/2024 documented as of this encounter Care Teams Rn Physician Office Relationship Specialty Start Date End Date Edgardo Aldridge MD [address] [facility] [address] or [address] [place] [address] PCP - General Family Medicine 04/02/23 Andrei Chaves MD PhD [address] [facility] [address] [place] [address] Referring Physician General Surgery 03/17/23 Olivia Phelps MD [address] [facility] [address] [place] [address] Consulting Physician Nephrology 03/17/23 Odilon Tellez MD [address] [facility] [address] [place] [address] Referring Physician Nephrology 11/12/23 Ayaka Thomas MD [address] [facility] [address] or 4 [place] [address] Fellow Internal Medicine 12/17/23 Yumi Jones CROWN ASSEMBLY MACHINE SET UP MECHANIC 1 [facility] [address] [place] [address] Nurse Practitioner Hospice and Palliative Medicine 08/16/23 Odilon Tellez MD [address] [facility] [address] [place] [address] Consulting Physician Nephrology 12/05/24 Jaimie Glez, KADY [address] [place] [address] [address] [place] [address] Manager Of Internal 01/29/25 documented as of this encounter
[2025-01-29 16:17] LABS: Hematocrit 28.1 % (37.0-47.0); Hemoglobin 8.9 g/dL (12.0-15.0); Immature Granulocyte Percent A 0.4 % (0-0.5); Lymphocytes Absolute Auto 0.97 K/mm3 (0.9-3.2); Mean Corpuscular HGB Conc 31.7 g/dl (32-36); Mean Corpuscular Hemoglobin 28.4 pg (26-34); Mean Corpuscular Volume 89.8 fl (80-100); Nucleated Red Blood Cells Absolute Auto 0.000 K/mm3 (0.0-0.012); Nucleated Red Blood Cells Perc 0.0 % (0.0-0.2); Platelet Count Result 278 k/mm3 (150-375); Red Blood Count 3.13 M/mm3 (4.2-5.4); White Blood Count 13.7 K/mm3 (4.5-10.0)
--- NOTE | 2025-01-29 16:26 | PC.NURSE ---
Pt refused IV fluids said she is on Dialysis and can not fluids
[2025-01-29 16:28] LABS: INR 1.3; Partial Thromboplastin Time 27.6 Seconds (22.3-36.8); Prothrombin Time 15.6 Seconds (11.1-14.7)
[2025-01-29 16:33] LABS: Alanine Aminotransferase 48 U/L (6-35); Albumin Level 4.5 g/dL (3.5-5.1); Alkaline Phosphatase 375 U/L (38-126); Anion Gap 29 mmol/L (4-12); Aspartate Amino Transferase 27 U/L (14-36); Bilirubin,Total 0.8 mg/dL (0.2-1.3); Blood Urea Nitrogen 78 mg/dL (7-17); Calcium 9.1 mg/dL (8.4-10.2); Carbon Dioxide 14 mmol/L (22-30); Chloride 90 mmol/L (98-107); Estimated CRCL calculation 7 ml/min; Estimated Glomerular Filt Rate 4; Glucose 497 mg/dL (65-110); Potassium 5.9 mmol/L (3.4-5.0); Sodium 133 mmol/L (137-145); Total Protein 7.9 g/dL (6.3-8.2)
--- OUTSIDE RECORDS SUMMARY | 2025-01-29 16:39 | XMS_ITS ---
Author Organization [facility] Address [address] [place] [address] Phone Care Team Providers Care Installer Technician Name Role Phone Eun Camacho Primary Care Provider [phone] Lindsey Chronic Condition Monitoring Status:Enrolled (Active) Start date:03/08/2024 Enrollment date:03/08/2024 Related social drivers of health:Intimate Partner Violence, Social Connections, Financial Resource Strain, Depression, Stress, Physical Activity, Food Insecurity, Transportation Needs, Housing Stability, Utilities Continued Care and Services Coordination
--- OUTSIDE RECORDS SUMMARY | 2025-01-29 16:39 | XMS_ITS | Encounter Summary ---
Author Organization [facility] Address [address] [place] [address] Care Team Providers Care Obgyn Nurse Name Role Phone Lay Villalta MD Primary Care Provider [phone] Edgardo Aldridge MD Primary Care Provider [phone] Encounter Details Date Type Department Care Team (Late st Contact Info) Description 07/17/2019 Lab Requisition [facility] [address] [place] [address] Unknown, Provider Social History Tobacco Use Types Packs/Day Years Used Date Smoking Tobacco: Never Smokeless Tobacco: Never Alcohol Use Standard Drinks/Week Comments No 0 (1 standard drink = 0.6 oz pur e alcohol) Comments Unknown Sex and Gender Information Value Date Recorded Sex Assigned at Not on file Legal Sex Female 5:44 AM PIEROGI MAKER Gender Identity Not on file Sexual Orientation Not on file 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 This test has been authorized [...] LAB - MICROBIOLOGY ORDERABLES F inal Result [facility] [address] [place] [address], [facility] [phone] documented in this encounter Visit Diagnoses Not on filedocumented in this encounter Care Teams Obgyn Nurse Relationship Specialty Start Date End Date Lay Villalta MD [address] [facility] [address] [place] [phone] PCP - General Family Medicine 07/07/15 12/27/23 Edgardo Aldridge MD [address] [facility] [address] [place] [phone] PCP - General Family Medicine 12/28/23 documented as of this encounter
[2025-01-29 16:40] LABS: Troponin I < 0.012 ng/mL (0.000-0.034)
--- OUTSIDE RECORDS SUMMARY | 2025-01-29 16:40 | XMS_ITS | Clinical Summary ---
Author Organization [facility] Address [address] [facility] [place] [address] Phone Care Team Providers Care Rug Weaver Name Role Phone Eun Camacho Primary Care [...] - 144 mmol/L 09/04/2022 9:18 AM CDT [facility] POTASSIUM 4.7 3.5 - 5.1 mmol/L 09/04/2022 9:18 AM CDT [facility] CHLORIDE 96(L) 100 - 110 mmol/L 09/04/2022 9:18 AM CDT [facility] CO2, VENOUS 24 22 - 32 mmol/L 09/04/2022 9:18 AM CDT [facility] ANION GAP 23.7(H) 8.0 - 20.0 mmol/L 09/04/2022 9:18 AM CDT [facility] GLUCOSE 443(HH) 70 - 99 mg/dL 09/04/2022 9:18 AM CDT [facility] BUN 28(H) 6 - 20 mg/dL 09/04/2022 9:18 AM CDT [facility] CREATININE, BLOOD 2.94(H) 0.60 - 1.10 mg/dL 09/04/2022 9:18 AM CDT [facility] BUN/CREATININE RATIO 10(L) 12 - 20 ratio 09/04/2022 9:18 AM CDT [facility] TOTAL PROTEIN 8.9(H) 6.0 - 8.3 g/dL 09/04/2022 9:18 AM [facility] ALBUMIN 3.9 3.5 - 5.2 g/dL 09/04/2022 9:18 AM [facility] Comment: The colormetric methods used for the determination of Albumin may lead to falsely elevated test results in patients suffering from renal failure or insufficiency due to interference with other proteins. A/G RATIO 0.8(L) 1.0 - 2.0 09/04/2022 9:18 AM CDT [facility] CALCIUM 9.7 8.9 - 10.3 mg/dL 09/04/2022 9:18 AM [facility] T BILI 0.3 <=1.2 mg/dL 09/04/2022 9:18 AM [facility] SGOT (AST) 11 <=32 U/L 09/04/2022 9:18 AM [facility] SGPT (ALT) 18 <=41 U/L 09/04/2022 9:18 AM [facility] ALKALINE PHOSPHATASE 196(H) 35 - 105 U/L 09/04/2022 9:18 AM [facility] GFR, ESTIMATED 22(L) >=60 09/04/2022 9:18 AM [facility] Comment: Creatinine Clearance is the preferred criteria for selecting drug dose adjustments in renally impaired patients. The GFR is provided as additional pertinent clinical information. GFR is reported in mL/min/1.73 sq m. Calculation based on the Chronic Kidney Disease Epidemiology Collaboration (CKD- EPI) equation refit without adjustment for race. GFR, EST. 23(L) >=60 023 9:18 AM [facility] GFR, EST. NONAFRICAN 19(L) >=60 09/04/2022 9:18 AM [facility] Blood Venipuncture / Unknown 09/04/2022 8:08 AM CDT 09/04/2022 8:39 AM CDT us Giovanni Faith DO CHEMISTRY ORDERABLES Fi nal Result Performing Organization Address City/[facility]/ZIP Co de Phone Number [facility] [address] [place] [address] * (ABNORMAL) Hemoglobin A1C (08/23/2022 9:39 PM CDT) HGB-A1C 9.0(H) 4.0 - 6.0 % 08/23/2022 10:04 PM CDT [facility] Est Average Glucose 211.6 mg/dL 08/23/2022 10:04 PM CDT [facility] Blood Venipuncture / Unknown 08/23/2022 9:39 PM CDT 08/23/2022 9:45 PM CDT Narrative [facility] - 08/23/2022 10:04 PM CDT HEMOGLOBIN A1C: DIABETIC PATIENTS: WELL-CONTROLLED: 6.2 - 7.0 INTERMEDIATE WELL-CONTROLLED: 7.0 - 9.0 POORLY-CONTROLLED: >9.0 us Celia Samuels APRN, FURNISHINGS CONSERVATOR CHEMISTRY ORDERABLES Final Result Performing Organization Address [facility] Co de Phone Number [facility] [address] [place] [address] from Last 3 Months or Most Recently [...] measures to stabilize the patient. Care Teams Rug Weaver Relationship Specialty Start Date End Date Eun Camacho PAC [address] [facility] [address] [place] [address] PCP - General Family Medicine 06/28/22
--- OUTSIDE RECORDS SUMMARY | 2025-01-29 16:40 | XMS_ITS | Clinical Summary ---
Author Organization [facility] Address [address] [facility] [place] [address] Phone Care Team Providers Care Community Development Director Name Role Phone Unavailable Primary Care Provider [...] now. Urged patient to re-establish with previous general assistant for management. Need back on insulin pump [...] long acting insulin with SSI F/u with general assistant Last Assessment & Plan: -Brittle DM1 -Home [...] (PF) 02/14/2021 MMR 12/03/2000,10/12/1996 PPD Test 05/22/2016 [email or web address] COVID-19 Vaccine 01/24/2021 Poliovirus Trivalent Vaccine , [...] PM CDT Legal Sex Female 12:26 PM BUNCHER MACHINE Gender Identity Female 11/05/2020 3:34 PM CDT Sexual Orientation Straight 11/05/2020 3: 34 PM CDT Last Filed Vital Signs Vital Sign Reading Time Taken Comments Blood Pressure 138/78 06/24/2022 7:47 PM BUNCHER MACHINE Pulse 95 06/24/2022 7:47 PM BUNCHER MACHINE Temperature 37 C (98.6 F) 06/24/2022 6:25 PM BUNCHER MACHINE Respiratory Rate 22 06/24/2022 7:47 PM BUNCHER MACHINE Oxygen Saturation 100% 06/24/2022 7:47 PM BUNCHER MACHINE Inhaled Oxygen Concentration - - Weight 54.4 kg (120 lb) 06/24/2022 4:51 PM BUNCHER MACHINE Height 162.6 cm (5' 4) 12/03/2021 10:40 [...] COMPREHENSIVE METABOLIC PANEL STAT 06/24/2022 5:05 PM BUNCHER MACHINE MICROALBUMIN/CREATININ E URINE RANDOM Routine 02/12/2021 3:35 PM CDT Type 1 diabetes mellitus with diabetic neuropathy (HCC ) HEMOGLOBIN A1C Routine 01/16/2021 3:32 AM CDT HEPATITIS PANEL, ACUTE STAT 8:38 PM CDT from Last 3 Months or Most Recently Relevant to Health Maintenance Results * (ABNORMAL) Comprehensive metabolic panel (06/24/2022 5:05 PM BUNCHER MACHINE) Sodium 139 135 - 145 mmol/L 06/24/2022 5:[address] [facility] Potassium 4.4 3.5 - 5.0 mmol/L 06/24/2022 5:38 PM [facility] Chloride 108(H) 98 - 107 mmol/L 06/24/2022 5:38 PM [facility] Carbon Dioxide 23 21 - 32 mmol/L 06/24/2022 5:38 PM [facility] Anion Gap 8 6 - 16 mmol/L 06/24/2022 5:38 PM [facility] Glucose 421(HH) 70 - 110 mg/dL 06/24/2022 5:38 PM [facility] BUN 33(H) 7 - 18 mg/dL 06/24/2022 5:38 PM [facility] Creatinine 2.70(H) 0.60 - 1.30 mg/dL 06/24/2022 5:38 PM [facility] BUN/Creatinine Ratio 12.2 11.7 - 13.9 06/24/2022 5:38 PM [facility] Calcium 8.9 8.5 - 10.1 mg/dL 06/24/2022 5:38 PM [facility] Comment:Calcium measurements are adversely affected by the use of Omniscan during MRI. Analysis of calcium is not recommended for 12 to 24 hours after the use of the contrast agent. Protein total 7.5 6.4 - 8.2 g/dL 06/24/2022 5:38 PM [facility] Albumin 2.8(L) 3.4 - 5.0 g/dL 06/24/2022 5:38 PM [facility] Bilirubin Total 0.2 0.0 - 1.0 mg/dL 06/24/2022 5:38 PM [facility] Comment:Use of this assay is not recommended for patients undergoing treatment with eltrombopag due to the potential for falsely elevated results. AST 39(H) 7 - 34 U/L 06/24/2022 5:38 PM [facility] ALT 77(H) 16 - 62 U/L 06/24/2022 5:38 PM [facility] ALP 224(H) 50 - 136 U/L 06/24/2022 5:38 PM [facility] eGFR non- 21.1(L) >=60.0 mL/min/1.7 3m2 06/24/2022 5:38 PM [facility] eGFR 25.6(L) >=60.0 mL/min/1.7 3m2 06/24/2022 5:38 PM [facility] Comment:The estimated GFR is based on the Modification of Diet in Renal Disease Study (MDRD) equation using average adult body surface area. This equation has not been validated for use with age groups below 18 or over 70, women, patients with serious co-morbid conditions, or persons with extremes of body size, muscle mass or nutritional status. Blood 06/24/2022 5:05 PM BUNCHER MACHINE 06/24/2022 5:05 PM BUNCHER MACHINE us Cony Alexander DO LAB BLOOD ORDERABLES Fin al Result Performing Organization Address City/[facility]/ZIP Co de Phone Number [facility] [address] [address] * (ABNORMAL) Microalbumin/Creatinine Urine (02/12/2021 3:35 PM CDT) Pathologist [facility] Creatinine Urine 10.00 10.00 - 300.00 mg/dL 02/13/2021 11:03 AM CDT [facility] Microalbumin urine 150(H) <=20 mg/L 02/13/2021 11:03 AM CDT [facility] Microalbumin/cre atinine urine >300 mg/g creatinine 02/13/2021 11:03 AM CDT [facility] Urine URINE SPECIMEN / Unknown Collection / Unknown 02/12/2021 3:35 PM CDT 02/12/2021 3:35 PM CDT us Devang Fan DO URINE ORDERABLES Final Re sult [facility] [address] [address] * (ABNORMAL) Hemoglobin A1c (01/16/2021 3:32 AM CDT) Hemoglobin A1c >14.0(H) 4.5 - 6.2 % 01/16/2021 7:[address] [facility] Blood Venipuncture / Unknown 01/16/2021 3:32 AM CDT 01/16/2021 3:34 AM CDT us Betty Johansen MD LAB BLOOD ORDERABLES Fin al Result [facility] [address] [place] [address] * Hepatitis Panel, Acute (08/10/2020 8:38 PM [...] Unless otherwise indicated, all testing performed at: [employer] [address] [place] [id number] Sewing Machinist: IZA GILES M.D. [facility]# [id number] Blood Venipuncture / Unknown 08/10/2020 8:38 PM CDT 08/10/2020 8:44 PM CDT us Xin Alejandre MD LAB BLOOD ORDERABLES Final Result [address] [address] from Last 3 Months or Most Recently Relevant to Health Maintenance Insurance MEDICAID [place] Advance Directives For more information, please contact: [phone] (7AM - 5PM [facility], 7 days a week) * Full Code [...]
--- OUTSIDE RECORDS SUMMARY | 2025-01-29 16:40 | XMS_ITS | Encounter Summary ---
Author Organization [facility] Address [address] [place] [address] Phone Care Team Providers Care Facility Operations Manager Name Role Phone Shown, Devang Alegre DO Primary Care Provider [phone] Encounter Details Date Type Department Care Team (Late st Contact Info) Description 12/03/2021 Telephone [facility] [address] [place] [phone] Leslie Pruitt Social History Tobacco Use Types Packs/Day Years Used Date Smoking Tobacco: Never Smokeless Tobacco: Never Alcohol Use Standard Drinks/Week Comments No 0 (1 standard drink = 0.6 oz pur e alcohol) Comments No Sex and Gender Information Value Date Recorded Sex Assigned at Female 11/05/2020 3:34 PM CDT Legal Sex Female 12:26 PM TIMBER SUPERVISOR Gender Identity Female 11/05/2020 3:34 PM CDT [...] d for the patient 03/29/2021 7:04 AM TIMBER SUPERVISOR documented as of this encounter Care Teams Facility Operations Manager Relationship Specialty Start Date End Date Shown, Devang Alegre DO [address] [address] PCP - General Family Medicine 09/11/21 12/06/24 documented as of this encounter
--- OUTSIDE RECORDS SUMMARY | 2025-01-29 16:40 | XMS_ITS | Encounter Summary ---
Author Organization [facility] Address [address] [address] Phone Care Team Providers Care Ore Trimmer Name Role Phone Lay Villalta MD Primary Care Provider [phone] Eun Camacho Primary Care Provider [phone] Encounter Details Date Type Department Care Team (Late st Contact Info) Description 07/30/2021 Telephone [facility] Med Surg [address] [phone] Kyleigh Thornton, RN [place] Social History Tobacco [...] on filedocumented in this encounter Care Teams Ore Trimmer Relationship Specialty Start Date End Date Lay Villalta MD [address] [place] [address] [place] [id number] PCP - General Family Medicine 07/10/21 06/27/22 Eun Camacho PAC [address] [place] [address] PCP - General Family Medicine 06/28/22 documented as of this encounter
--- OUTSIDE RECORDS SUMMARY | 2025-01-29 16:40 | XMS_ITS | Clinical Summary ---
Author Organization [facility] Address [address] [place] [address] Care Team Providers Care Gluing Machine Offbearer Name Role Phone Edgardo Aldridge MD Primary Care Provider [phone] Keely Ugalde COAL SHOVELER Unavailable [phone] Keely Ugalde COAL SHOVELER Unavailable [phone] Odilon Tellez MD Unavailable [phone] Sahra Dominguez MD Unavailable [phone] Young Vasquez MD Unavailable [phone] Andrei Chaves MD Unavailable [phone] Allergies Active Allergy Reactions Criticality Noted Date [...] Unspecified hydronephrosis 10/26/2022 Pulmonary hypertension, unspecified 10/26/2022 long term (current) use of insulin 10/26/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 Recently admitted at [facility] but left 2-3 days prior to admission here as she says she was unhappy with her care. Nausea recurred this am but no vomiting. Will resume IVF if she doesn't tolerate lunch. I reviewed some records from [facility] Everywhere and found a gastric emptying study done in [place] which was normal, though this doesn't exclude [...] CDT - 12/28/2024 7:12 PM CDT Emergency [facility] [place] [address] Gregory Diaz MD Abdominal Pain Discharge Disposition: Left Against Medical Advice 12/28/2024 Travel 12/24/2024 6:48 PM CDT - 12/24/2024 8:50 PM CDT Emergency [facility] Emergency Room [address] [place] [address] Starr Porter MD Chest Pain; Abdominal Pain [...] CDT - 12/18/2024 5:34 PM CDT Emergency [facility] Emergency Room [address] [place] [address] Cristine Rey MD Vomiting; Nausea Discharge Disposition: Home or Self Care (Routine Discharge) 12/18/2024 Travel 12/17/2024 4:22 PM CDT - 12/17/2024 9:17 PM CDT Emergency [facility] [place] [address] Devyn Guadarrama DO Chest Pain; Vomiting Discharge Disposition: Left Against Medical Advice 12/17/2024 Travel 12/13/2024 Results Follow-Up [facility] - [facility] [address], [address] [place] [address] Sahra Dominguez MD Complete PFT (pre/post [place], Lung Vol, Diff Capacity) ([id number], [id number], [id number], [id number]) 12/10/2024 1:20 PM CDT - 12/14/2024 4:45 PM CDT Hospital Encounter [facility] Med/Surg 3rd [place] [address] Hung Healy MD Lamonica, Kandace C, MD Suresh, MD Charlie Alamo, MD Gilson Gipson, Kristen Pierson, EDILMA Borja, Catherine Lipscomb, WOODS SUPERINTENDENT Vomiting; Chest Pain Discharge Disposition: Home or Self Care (Routine Discharge) 12/10/2024 Travel 12/08/2024 1:35 PM CDT - 12/08/2024 11:59 PM CDT Hospital Encounter [facility] [place] [address] Sahra Dominguez MD Discharge Disposition: Home or Self Care (Routine Discharge) 12/08/2024 11:00 AM CDT Office Visit [facility] Physical Therapy [address] [place] [address] Kya Arias, PT Edgardo Aldridge MD Leach, Danielle N, MATERIALS INTERN Weakness (10/04) 12/08/2024 Scan HEALTH INFO SRVCS Scanned, [facility] PFT (SCAN) 12/08/2024 Hospital [facility] [place] [address] Reva Campbell, DILSHAD Follow Up Call ([facility] 12/03-12/06/24) 12/08/2024 Travel 12/04/2024 Hospital [place] [address] Reva Campbell DESK DIRECTOR Follow Up Call ([facility] 11/30-12/01/24) 12/03/2024 11:04 PM CDT - 12/06/2024 1:56 PM CDT Hospital Encounter [facility] Med/Surg 3rd [place] [address] Raul Cartagena MD,PHD Nadine Ayala, Lily Ji MD Tran, Isaac T, MD Vomiting Discharge Disposition: Home or Self Care (Routine Discharge) 12/03/2024 Travel 11/30/2024 7:24 AM CDT - 12/01/2024 3:10 PM CDT Hospital Encounter [facility] [place] [address] Julissa Lawson MD Bismack, Gregory T, MD Chest Pain; Vomiting Discharge Disposition: Home or Self Care (Routine Discharge) 11/30/2024 Results [facility]-Up [facility] Endo/[place] [address] Sahra Dominguez MD Pathology, CYTOLOGY GENERIC, CULTURE, TISSUE W/GRAM STAIN, Additional followed-up results: 8 11/29/2024 9:54 AM CDT - 11/29/2024 2:06 PM CDT Emergency [facility] [place] [address] Julissa Lawson MD Abdominal Pain Discharge Disposition: Home or Self Care (Routine Discharge) 11/29/2024 Travel 11/28/2024 Hospital Follow-up Call [facility] [place] [address] Reva Campbell LPN Follow Up Call ([facility] 11/23-11/25/24) 11/27/2024 9:45 AM CDT Office Visit [facility] Physical Therapy [address] [place], [place] [id number] Kya Arias, PT Shellie Sanchez, WOODS SUPERINTENDENT Edgardo Aldridge MD Leach, Yareli Anna, MATERIALS INTERN Weakness (09/03) 11/27/[address] [facility] - [facility] [address] [place] [id number] Sahra Dominguez MD Results 11/27/2024 Travel 11/23/2024 5:12 AM CDT - 11/25/2024 3:56 PM CDT Hospital Encounter [facility] Med/Surg 5th [place] [address] Julissa Lawson MD Jerkovich, Adria, MD Islam, Maaroof, MD Chest Pain; Hyperglycemia Symptomatic Discharge Disposition: Home or Self Care (Routine Discharge) 11/23/2024 Travel 11/21/2024 9:10 AM CDT Anesthesia Event [facility] Endo/[place] [address] Silverio Hill MD Jarvis, Brittany L, CONCRETE ROD BUSTER 11/21/2024 9:00 AM CDT - 11/21/2024 10:00 AM CDT Surgery [facility] [place] [address] Sahra Dominguez MD BRONCHOSCOPY WITH LAVAGE (BAL)-LEFT LOWER LOBE WITH RADIAL PROBE 11/21/2024 7:20 AM CDT - 11/21/2024 11:42 AM CDT Hospital Encounter [facility] [place] [address] Sahra Dominguez MD Discharge Disposition: Home or Self Care (Routine Discharge) 11/20/2024 2:00 PM CDT Office Visit [facility] Physical Therapy [address] [place] [address] Kya Arias, PT Shellie Sanchez, WOODS SUPERINTENDENT Edgardo Aldridge MD Leach, Danielle N, MATERIALS INTERN Weakness (08/04) 11/20/2024 Travel 11/17/2024 11:00 AM CDT Office Visit [facility] Physical Therapy [address] [place] [address] Edgardo Aldridge MD Daniels, Darcy L, WOODS SUPERINTENDENT Yareli Barron, MATERIALS INTERN Weakness (07/04) 11/17/2024 Prep for Procedure [facility] [place] [address] Mehnaz Boogie, CONCRETE ROD BUSTER 11/17/2024 Travel 11/16/2024 11:20 AM CDT Office Visit [facility] - [facility] [address] [place] [phone] Sahra Dominguez MD Follow Up (Increased SOB and coughing. ) 11/16/2024 10:18 AM CDT - 11/16/2024 11:59 PM CDT Hospital Encounter [facility] Diagnostic Imaging [address] [place] [address] Edgardo Aldridge MD Discharge Disposition: Home or Self Care (Routine Discharge) 11/16/2024 Scan HEALTH INFO SRVCS Scanned, [facility] 11/16/2024 [facility] [address], [address] [place] [address] Sahra Dominguez MD Orders 11/16/2024 Travel 11/13/2024 11:00 AM CDT Office Visit [facility] Physical Therapy [address] [place] [address] Edgardo Aldridge MD Daniels, Darcy L, WOODS SUPERINTENDENT Yareli Barron, MATERIALS INTERN Weakness (06/06) 11/13/2024 Travel 11/13/2024 [facility] [address] [place] [address] CHEST WO CON 11/11/2024 11:03 AM CDT - 11/11/2024 11:59 PM CDT Hospital Encounter [facility] [place] [address] Sahra Dominguez MD Discharge Disposition: Home or Self Care (Routine Discharge) 11/11/2024 Travel 11/08/2024 2:30 PM CDT Office Visit [facility] Physical Therapy [address] [place] [address] Kya Arias, PT Shellie Sanchez, WOODS SUPERINTENDENT Edgardo Aldridge MD Weakness (05/06 IE) 11/08/2024 [...] from your doctor or pharmacy? Never 11/23/2024 [employer] Util[employer] Answer Date Recorded In the past 12 months has [facility] PaeDae, Mesitis, or water Enabled Employment threatened to shut off services in your [...] How often do you attend chur or protestant services? Never 11/23/2024 Do you belong to [...] Recorded Patient Health Questionnaire-2 Score 0 11/23/2024 [facility] - [...] slept in a long-term (including now)? No 03/20/2023 Housing Stability Vital [...] in the past 12 m [facility], were you homeless or living in a long-term (including now)? 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 - [facility] [address] [place] [address] Sahra Dominguez MD [address] [place] [address] Health Maintenance Due Date Last Done Comments [...] 08/17, 06/19/2024, Additional history exists PHQ-2 (Physician [place]) Completed 11/23/2024 Hepatitis A Vaccines Aged Out [...] perform ADLs independently Lifestyle No Latrice Marie RN HEMATOLOGY Health - patient able to perform ADLs independently Lifestyle No Latrice Marie RN HEMATOLOGY Patient will return to prior living situation and remain independent in ADLs upon discharge from hospital Lifestyle No 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 No ectopy us Gregory Diaz MD [facility] Final Result * (ABNORMAL) URINALYSIS (12/28/2024 6:22 PM CDT) Only the most recent of4 resultswithin the time period is included. SPECIMEN TYPE URINE CLEAN CATCH 12/28/2024 6:24 PM CDT [facility] COLOR (U) COLORLESS 12/28/2024 6:55 PM CDT [facility] TRANSPARENCY CLEAR 12/28/2024 6:55 PM CDT [facility] SPECIFIC GRAVITY (U) 1.020 1.001 - 1.030 12/28/2024 6:55 PM CDT [facility] U PH 7.0 5.0 - 9.0 12/28/2024 6:55 PM CDT [facility] LEUKOCYTES (U) NEGATIVE NEGATIVE 12/28/2024 6:55 PM CDT [facility] NITRITES NEGATIVE NEGATIVE 12/28/2024 6:55 PM CDT [facility] PROTEIN RANDOM (U) 300(H) <30 MG/DL 12/28/2024 6:55 PM CDT [facility] GLUCOSE (U) >1000(A) NORMAL MG/DL 12/28/2024 6:55 PM CDT [facility] KETONES MG/DL (U) 20(A) NEGATIVE MG/DL 12/28/2024 6:55 PM T [facility] Comment: Successful Call: DANIEL called 12/28/2024 06:56 PM to EMERGENCY ROOM ([id number]/DAY, JD) by [id number]. UROBILINOGEN NORMAL NORMAL MG/DL 12/28/2024 6:55 PM CDT [facility] BILIRUBIN (U) NEGATIVE NEGATIVE MG/DL 12/28/2024 6:55 PM CDT [facility] BLOOD (U) 3+(A) NEGATIVE 12/28/2024 6:55 PM CDT [facility] MUCUS RARE /LPF 12/28/2024 6:55 PM CDT [facility] WBC/HPF 26(H) <6 /HPF 12/28/2024 6:55 PM CDT [facility] RBC/HPF >100(H) <6 /HPF 12/28/2024 6:55 PM CDT [facility] BACTERIA (U) RARE(A) NONE /HPF 12/28/2024 6:55 PM CDT [facility] SQUAMOUS EPITHELIALS RARE /HPF 12/28/2024 6:55 PM CDT [facility] URINE SPECIMEN OBTAINED BY CLEAN CATCH PROCEDURE / Unknown 12/28/2024 6:22 PM CDT Gregory Diaz MD URINE ORDERABLES Final Result [facility] [address] [place] [address], [place] [phone] * (ABNORMAL) COMPREHENSIVE METABOLIC PANEL (12/28/2024 6:22 PM CDT) Only the most recent of13 resultswithin the time period is included. GLUCOSE 228(H) 70 - 99 MG/DL 12/28/2024 7:15 PM CDT [facility] BUN 29(H) 7 - 18 MG/DL 12/28/2024 7:15 PM CDT [facility] CREATININE S/P/B 9.14(HH) 0.55 - 1.02 MG/DL 12/28/2024 7:15 PM CDT [facility] Comment: Critical Result(s) Called at: 19:14:15 on 12/28/2024 by: MARION CAPONE to and read back by:DESIREE INMAN SODIUM S/P/B 137 136 - 145 MMOL/L 12/28/2024 7:15 PM CDT [facility] POTASSIUM S/P/B 3.3(L) 3.5 - 5.1 MMOL/L 12/28/2024 7:15 PM CDT [facility] CHLORIDE S/P/B 105 97 - 115 MMOL/L 12/28/2024 7:15 PM CDT [facility] CO2 20.5(L) 21 - 32 MMOL/L 12/28/2024 7:15 PM CDT [facility] CALCIUM S/P/B 7.5(L) 8.5 - 10.1 MG/DL 12/28/2024 7:15 PM CDT [facility] BILIRUBIN TOTAL S/P/B 0.4 0.2 - 1.2 MG/DL 12/28/2024 7:15 PM CDT [facility] Comment: THIS ASSAY IS NOT RECOMMENDED FOR PATIENTS UNDERGOING TREATMENT WITH ELTROMBOPAG DUE TO THE POTENTIAL FOR FALSELY ELEVATED RESULTS. TOTAL PROTEIN S/P/B 6.7 6.4 - 8.2 G/DL 12/28/2024 7:15 PM CDT [facility] ALBUMIN S/P/B 2.9(L) 3.4 - 5.0 G/DL 12/28/2024 7:15 PM CDT [facility] AST 28 15 - 37 U/L 12/28/2024 7:15 PM CDT [facility] ALT 16 14 - 55 U/L 12/28/2024 7:15 PM CDT [facility] ALKALINE PHOSPHATASE S/P/B 159(H) 50 - 136 U/L 12/28/2024 7:15 PM CDT [facility] ANION GAP 11.5(H) 2 - 10 MMOL/L 12/28/2024 7:15 PM CDT [facility] BUN CREATININE RATIO 3.2(L) 6 - 26 12/28/2024 7:15 PM CDT [facility] A/G RATIO 0.8(L) 1.0 - 2.0 RATIO 12/28/2024 7:15 PM CDT [facility] GFR ESTIMATE 5(L) >90 ML/MIN/1.7 3 M2 12/28/2024 7:15 PM CDT [facility] Comment: NOTE: eGFR is [...] CDT Gregory Diaz MD LABORATORY Final Result [facility] [address] [place] [address], * XR CHEST PORTABLE (12/28/2024 5:37 PM CDT) Only the most recent of6 resultswithin the time period is included. Anatomical Region Laterality Modality Chest Radiographic Michelle ging 12/28/2024 6:30 PM CDT Impressions 12/28/2024 6:30 PM CDT IMPRESSION: No acute cardiopulmonary process. Referred By: Interpreted By: Aaron Michele MD, 12/28/2024 6:30 PM Narrative 12/28/2024 6:30 PM CDT [facility] [address] [address] EXAM: XR CHEST PORTABLE INDICATION: Chest pain [...] Procedure Note Aaron Michele MD - 12/28/[address] [address] EXAM: XR CHEST PORTABLE INDICATION: Chest pain [...] By: Aaron Michele MD, 12/28/2024 6:30 PM Gregory Diaz MD GENERAL IMAGING Final Result * ECG 12 lead (12/28/2024 3:18 PM CDT) Only the most recent of8 resultswithin the time period is included. 12/28/2024 3:[address] 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 Procedure Note Dennis Delacruz MD - 12/29/[address] Test Date: 2024-12-28 Pat Name: LYNETTE ANGELA Department: 41 Room: RENZO Gender: Female Second Class Welder: [id number] : 1995 Requested By: GREGORY DIAZ Order Number: [id number] Reading : Dennis Delacruz Measurements Intervals Post Rate: 91 P: 20 UT: 169 QRS: 14 QRSD: 86 T: 41 QT: 397 QTc: 490 Interpretive Statements SINUS RHYTHM MODERATE VOLTAGE CRITERIA FOR LVH, CONSIDER NORMAL VARIANT [MEETSCRITERIA IN ONE OF: R(aVL), S(V1), R(V5), R(V5/V6)+S(V1)].prolonged QTc Compared to ECG 12/24/2024 18:57:55 Sinus tachycardia no longer present Preliminary EKG Interpretation by Gregory Diaz M.D. us Gregory Diaz MD ECG ORDERABLES Final Result [facility] ([facility] * Qualitative HCG (12/28/2024 2:34 PM CDT) Only the most recent of4 resultswithin the time period is included. Pathologist [facility] PREG SCREEN-SERUM NEGATIVE 12/28/2024 5:10 PM CDT [facility] 12/28/2024 2:34 PM CDT Gregory Diaz MD LABORATORY Final Result [facility] [address] [place] [address], [place] [phone] * (ABNORMAL) CBC W/DIFF AUTOMATED (12/28/2024 2:34 PM CDT) Only the most recent of19 resultswithin the time period is included. [facility] WBC 5.75 4.5 - 11.0 x10'3/uL 12/28/2024 3:24 PM CDT [facility] RBC 3.92(L) 4.20 - 5.40 x10'6/uL 12/28/2024 3:24 PM CDT [facility] HGB 10.7(L) 12.0 - 16.0 G/DL 12/28/2024 3:24 PM CDT [facility] HCT 33.3(L) 38.0 - 48.0 % 12/28/2024 3:24 PM CDT [facility] MCV 84.9 81.0 - 99.0 FL 12/28/2024 3:24 PM CDT [facility] MCH 27.3 27.0 - 31.0 PG 12/28/2024 3:24 PM CDT [facility] MCHC 32.1 32.0 - 36.0 G/DL 12/28/2024 3:24 PM CDT [facility] RDW 14.0 11.5 - 14.5 % 12/28/2024 3:24 PM CDT [facility] PLT 258 130 - 400 x10'3/uL 12/28/2024 3:24 PM CDT [facility] MPV 10.7 9.3 - 12.2 FL 12/28/2024 3:24 PM CDT [facility] DIFFERENTIAL TYPE AUTOMATED DIFFERENTIAL 12/28/2024 3:24 PM CDT [facility] NEUTROPHILS % 70.2 % 12/28/2024 3:24 PM CDT [facility] LYMPHOCYTES % 22.3 % 12/28/2024 3:24 PM CDT [facility] MONOCYTES % 4.2 % 12/28/2024 3:24 PM CDT [facility] EOSINOPHILS 2.8 % 12/28/2024 3:24 PM CDT [facility] BASOPHILS 0.3 % 12/28/2024 3:24 PM CDT [facility] IMMATURE GRANS % 0.2 % 12/29/19 3:24 PM CDT [facility] ABS. NEUTROPHILS 4.04 1.80 - 7.70 x10'3/uL 12/28/2024 3:24 PM CDT [facility] ABS. LYMPHOCYTES 1.28 1.00 - 4.80 x10'3/uL 12/28/2024 3:24 PM CDT [facility] ABS. MONOCYTES 0.24 0.24 - 0.86 x10'3/uL 12/28/2024 3:24 PM CDT [facility] ABS. EOSINOPHILS 0.16 0.04 - 0.36 x10'3/uL 12/28/2024 3:24 PM CDT [facility] ABS. BASOPHILS 0.02 0.01 - 0.08 x10'3/uL 12/28/2024 3:24 PM CDT [facility] ABS. IMMATURE GRANULOCYTES 0.01 0.00 - 0.49 x10'3/uL 12/28/2024 3:24 PM CDT [facility] 12/28/2024 2:34 PM CDT us Gregory Diaz MD LABORATORY Final Result [facility] [address] [place] [address], [place] [phone] * TROPONIN, QUANT (12/28/2024 2:34 PM CDT) Only the most recent of9 resultswithin the time period is included. TROPONIN I HIGH SENSITIVITY 13 <54 ng/L 12/28/2024 3:17 PM CDT [facility] Comment: HIGH DOSES OF BIOTIN, TROPONIN-SPECIFIC AUTOANTIBODIES, AND ANTIBODY THERAPY CONTAINING HAMA MAY INTERFERE WITH THIS TEST RESULT. CORRELATION TO CLINICAL HISTORY AND PRESENTATION RECOMMENDED. 12/28/2024 2:34 PM CDT us Gregory Diaz MD LABORATORY Final Result Performing Organization Address City/[facility]/ZIP Co de Phone Number [facility] [address] [place] [address], [place] [phone] * (ABNORMAL) PHOSPHORUS, INORGANIC PHOSPHATE (12/28/2024 2:34 PM CDT) Only the most recent of4 resultswithin the time period is included. PHOSPHORUS 5.9(H) 2.5 - 4.9 MG/DL 12/28/2024 5:11 PM CDT [facility] 12/28/2024 2:34 PM CDT Gregory Diaz MD LABORATORY Final Result Performing Organization Address City/[facility] Co de Phone Number [facility] [address] [place] [address], [place] [phone] * MAGNESIUM (12/28/2024 2:34 PM CDT) Only the most recent of7 resultswithin the time period is included. MAGNESIUM 2.4 1.8 - 2.4 MG/DL 12/28/2024 5:11 PM CDT [facility] 12/28/2024 2:34 PM CDT Gregory Diaz MD LABORATORY Final Result Performing Organization Address [facility] Co de Phone Number [facility] [address] [place] [address], [place] [phone] * LIPASE (12/28/2024 2:34 PM CDT) Only the most recent of7 resultswithin the time period is included. LIPASE 34 13 - 75 UNITS/L 12/28/2024 3:17 PM CDT [facility] 12/28/2024 2:34 PM CDT us Gregory Diaz MD LABORATORY Final Result Performing Organization Address City/[facility] Co de Phone Number [facility] [address] [place] [address], [place] [phone] * Critical Care (12/24/2024 8:38 PM CDT) [...] 7.35 - 7.45 12/24/2024 8:13 PM CDT [facility] PCO2 40.0 35 - 45 MMHG 12/24/2024 8:13 PM CDT [facility] PO2 94.0 83 - 108 MMHG 12/24/2024 8:13 PM CDT [facility] TOTAL CO2 ARTERIAL 26.6(H) 19.0 - 24.0 MMOL/L 12/24/2024 8:13 PM CDT [facility] BASE EXCESS 0.7 0.0 - 3.0 MMOL/L 12/24/2024 8:13 PM CDT [facility] O2 SATURATION 97 94.0 - 98.0 % 12/24/2024 8:13 PM CDT [facility] BICARB ARTERIAL 25.4 21.0 - 28.0 MMOL/L 12/24/2024 8:13 PM CDT [facility] RAJAN TEST POSITIVE 12/24/2024 8:10 PM CDT [facility] O2 ADMIN ARTERIAL 21 12/24/2024 8:10 PM CDT [facility] DRAW SITE ARTERIAL RT BRACH 12/24/2024 8:10 PM CDT [facility] 12/24/2024 8:04 PM CDT Starr Porter MD LABORATORY Final Result Performing Organization Address City/[facility]/ZIP Co de Phone Number [facility] [address] [place] [address], [place] [phone] * (ABNORMAL) BETA-HYDROXYBUTYRATE (12/24/2024 7:10 PM CDT) Only the most recent of6 resultswithin the time period is included. BETA-HYDROXYBU TYRATE 0.8(H) <0.6 MMOL/L 12/24/2024 7:55 PM CDT [facility] 12/24/2024 7:10 PM CDT Starr Porter MD LABORATORY Final Result Performing Organization Address City/[facility]/ZIP Co de Phone Number [facility] [address] [place] [address], [place] [phone] * XR ABD FLAT+UPRIGHT (12/18/2024 4:28 PM CDT) Anatomical Region Laterality Modality Abdomen Radiographic Michelle ging 12/18/2024 4:55 PM CDT Impressions 12/18/2024 4:58 PM CDT IMPRESSION: Nonobstructed gas pattern. No free air. Referred By: Interpreted By: Sampson Gustafson MD, 12/18/2024 4:55 PM Narrative 12/18/2024 4:58 [place] [address] EXAMINATION: XR ABD FLAT+UPRIGHT HISTORY: Vomiting, pain DATE: 12/18/2024 4:14 PM COMPARISON: September 28, 2022 TECHNIQUE: Supine and upright AP views of the abdomen. 3 images. FINDINGS: Nonobstructed gas pattern. Gastric stimulator device is noted. Mild gaseous distention of the stomach. Moderate amount of stool density. No acute osseous abnormality. No free air. Procedure Note Sampson Gustafson MD - 12/18/2024 [facility] [address] [place], [place] [id number] EXAMINATION: XR ABD FLAT+UPRIGHT HISTORY: Vomiting, pain [...] 7.32 - 7.43 12/18/2024 3:21 PM CDT [facility] PCO2 VENOUS 33.0 MMHG 12/18/2024 3:21 PM CDT [facility] Comment:NO REFERENCE RANGE H BEEN ESTABLISHED PO2 VENOUS 75.0 MM HG 12/18/2024 3:21 PM CDT [facility] [facility] Comment:NO REFERENCE RANGE H BEEN ESTABLISHED TOTAL CO2 VENOUS 22.4 22.0 - 26.0 MMOL/L 12/18/2024 3:21 PM CDT [facility] BASE DEFICIT VENOUS 2.4 MMOL/L 12/18/2024 3:21 PM CDT [facility] Comment:NO REFERENCE RANGE H BEEN ESTABLISHED O2 SAT VENOUS 95 % 12/18/2024 3:21 PM CDT [facility] Comment:NO REFERENCE RANGE H BEEN ESTABLISHED BICARB VENOUS 21.4(L) 22.0 - 29.0 MMOL/L 12/18/2024 3:21 PM CDT [facility] O2 ADMIN VENOUS 21 3:21 PM CDT [facility] 12/18/2024 3:10 PM CDT Cristine Rey MD LABORATORY Final Result [facility] [address] [place] [address], * LACTIC ACID (12/18/2024 3:10 PM CDT) LACTIC ACID VENOUS 0.6 0.4 - 2.0 MMOL/L 12/18/2024 3:38 PM CDT [facility] 12/18/2024 3:10 PM CDT us Cristine Rey MD LABORATORY Final Result [facility] [address] [place] [address], [place] [phone] * CORONAVIRUS (COVID 19) (12/17/2024 6:02 PM CDT) CORONAVIRUS SARS COV 2 RNA NEGATIVE NEGATIVE 12/17/2024 6:37 PM CDT [facility] Comment: NEGATIVE RESULTS DO NOT [...] SPECIMEN TYPE NASAL 12/17/2024 6:05 PM CDT [facility] NASAL STRUCTURE / Unknown 12/17/2024 6:02 PM CDT Devyn Guadarrama DO MICROBIOLOGY - GENERAL ORDERAB LES Final Result [facility] [address] [place] [address], * INFLUENZA A & B (12/17/2024 6:01 PM CDT) [facility] SPECIMEN TYPE NASAL 12/17/2024 6:15 PM CDT [facility] INFLUENZA A NEGATIVE NEGATIVE 12/17/2024 6:38 PM CDT [facility] INFLUENZA B NEGATIVE NEGATIVE 12/17/2024 6:38 PM CDT [facility] Comment: Interpretation: Negative for Influenza [...] MICROBIOLOGY - GENERAL ORDERAB LES Final Result [facility] [address] [place] [address], [place] [phone] * CTA CHEST+ABD+PEL (12/17/2024 5:57 PM CDT) [...] 7:19 PM Narrative 12/17/2024 7:34 PM CDT [facility] [address] [place], [place] [address] EXAMINATION: CTA Chest, Abdomen and Pelvis with [...] Procedure Note Porter Rolle MD - 12/17/[address] [address] EXAMINATION: CTA Chest, Abdomen and Pelvis with [...] - 99 mg/dL 12/14/2024 4:01 PM CDT [facility] 12/14/2024 3:45 PM CDT Catherine Borja NP POCT ORDERABLES - DEVICE Marli lipscomb Result [facility] [address] [place] [address], [place] [phone] * (ABNORMAL) BASIC METABOLIC PANEL (12/14/2024 3:18 PM CDT) Only the most recent of20 resultswithin the time period is included. GLUCOSE 247(H) 70 - 99 MG/DL 12/14/2024 4:13 PM CDT [facility] BUN 18 7 - 18 MG/DL 12/14/2024 4:13 PM CDT [facility] CREATININE S/P/B 5.19(HH) 0.55 - 1.02 MG/DL 12/14/2024 4:13 PM CDT [facility] Comment:NOT CALLED PER CRITI NICOLE VALUE POLICY SODIUM S/P/B 135(L) 136 - 145 MMOL/L 12/14/2024 4:13 PM CDT [facility] POTASSIUM S/P/B 4.3 3.5 - 5.1 MMOL/L 12/14/2024 4:13 PM CDT [facility] CHLORIDE S/P/B 104 97 - 115 MMOL/L 12/14/2024 4:13 PM CDT [facility] CO2 25.1 21 - 32 MMOL/L 12/14/2024 4:13 PM CDT [facility] CALCIUM S/P/B 8.2(L) 8.5 - 10.1 MG/DL 12/14/2024 4:13 PM CDT [facility] ANION GAP 5.9 2 - 10 MMOL/L 12/14/2024 4:13 PM CDT [facility] BUN CREATININE RATIO 3.5(L) 6 - 26 12/14/2024 4:13 PM CDT [facility] GFR ESTIMATE 11(L) >90 ML/MIN/1.7 3 M2 12/14/2024 4:[address] [facility] Comment: NOTE: eGFR is not calculated for patients <18 years of age or gender unknown. This is an estimated GFR calculation using the new CKD EPI creatinine equation without race and so does not require a correction factor for race. This estimated GFR should not be used for calculating drug doses. 12/14/2024 3:18 PM CDT Catherine Borja NP LABORATORY Final Result [facility] [address] [place] [address], [place] [phone] * CT ABD+PEL W CON (12/11/2024 12:07 [...] 12:28 PM Narrative 12/11/2024 12:50 PM CDT [facility] [address] [place], [place] [address] Examination: CT abdomen and pelvis with IV [...] Procedure Note Lilo Scott MD - 12/11/[address] [place], [place] [address] Examination: CT abdomen and pelvis with IV [...] - 2.0 MMOL/L 12/10/2024 3:27 PM CDT [facility] 12/10/2024 2:03 PM CDT Parag Michaels PA-C LABORATORY Final Resul t [facility] [address] [place] [address], [place] [phone] * (ABNORMAL) TSH W/REFLEX (12/10/2024 2:03 PM CDT) TSH 7.600(H) 0.358 - 3.74 uIU/ML 12/10/2024 3:13 PM CDT [facility] Comment: HIGH DOSES OF BIOTIN MAY INTERFERE WITH THIS TEST RESULT. CORRELATION TO CLINICAL HISTORY AND PRESENTATION RECOMMENDED. 12/10/2024 2:03 PM CDT us Parag Michaels PA-C LABORATORY Final Resul t Performing Organization Address City/[facility] Co de Phone Number [facility] [address] [place] [address], [place] [phone] * PARTIAL THROMBOPLASTIN TIME,PTT (12/10/2024 2:03 PM CDT) PTT 34.8 25.1 - 36.5 SEC 12/10/2024 2:44 PM CDT [facility] 12/10/2024 2:03 PM CDT us Parag Michaels PA-C LABORATORY Final Resul t Performing Organization Address [facility] Co de Phone Number [facility] [address] [place] [address], [place] [phone] * PROTIME/INR, VENOUS (12/10/2024 2:03 PM CDT) PROTIME 11.3 10.2 - 12.9 SEC 12/10/2024 2:44 PM CDT [facility] INR 1.0 12/10/2024 2:44 PM CDT [facility] Comment: Recommended INR Therapeutic Goals: 2.0-3.0 Routine Therapy 2.5-3.5 Mechanical Prosthetic Valves (High Risk) 12/10/2024 2:03 PM CDT us Parag Michaels PA-C LABORATORY Final Resul t Performing Organization Address [facility] Co de Phone Number [facility] [address] [place] [address], [place] [phone] * THYROXINE, FREE (FT4) (12/10/2024 2:03 PM CDT) FREE T4 1.17 0.76 - 1.46 NG/DL 12/10/2024 3:28 PM CDT [facility] 12/10/2024 2:03 PM CDT Parag Michaels PA-C LABORATORY Final Resul t [facility] [address] [place] [address], * Complete PFT (pre/post Daljit, Lung Vol, Diff Capacity) (10030, [id number], [id number], [id number]) (12/08/2024 2:00 PM CDT) Narrative [facility] - 12/08/2024 2:00 PM CDT Sahra Dominguez MD 12/13/2024 10:[address] [facility] Lynette Angela 29-year-old Height [...] PFT ORDERABLES Final Result Performing Organization Address [facility] Co de Phone Number [facility] [address] [place] [address], * Home O2 eval (12/08/2024 2:00 PM CDT) Narrative [facility] - 12/08/2024 2:00 PM CDT Sahra Dominguez MD 12/13/2024 10:[address] [facility] Lynette Angela 29-year-old Height [...] PFT ORDERABLES Final Result Performing Organization Address [facility] Co de Phone Number [facility] [address] [place] [address], [place] [phone] * PFT GENERIC (SCAN ORDER) (12/08/2024) 12/08/2024 [facility] Scanned SCANNING Final Resu lt * (ABNORMAL) LIPID PANEL (12/04/2024 11:58 AM CDT) CHOLESTEROL 109 <200 MG/DL 12/04/2024 12:39 PM CDT [facility] TRIGLYCERIDES 133 <150 MG/DL 12/04/2024 12:39 PM CDT [facility] HDL 31(L) >40.0 MG/DL 12/04/2024 12:39 PM CDT [facility] LDL (CALCULATED) 51 <100 MG/DL 12/05/19 25 12:39 PM CDT [facility] Comment:CALCULATED USING THE FRIEDEWALD EQUATION NON HDL CHOLESTEROL 78 <130 MG/DL 12/04 12:39 PM CDT [facility] CHOL/HDL RATIO 3.5 0.0 - 4.5 12/04/2024 12:39 PM CDT [facility] VLDL CALCULATION 27 5 - 55 MG/DL 12/04/2024 12:39 PM CDT [facility] LIPID INTERPRETATION 12/04/2024 12:39 PM CDT [facility] Comment: [facility] CON[facility] REPORT RECOMMENDATIONS: ADULT CHILD LOW RISK: CHOLESTEROL <200 <170 TRIGLYCERIDE <150 --- HDL >=60 --- LDL <100 <110 BORDERLINE: CHOLESTEROL 200-239 170-199 TRIGLYCERIDE 150-199 --- HDL 40-59 --- LDL 100-159 110-129 HIGH RISK: CHOLESTEROL >=240 >=200 TRIGLYCERIDE >=200 --- HDL <40 --- LDL >=160 >=130 12/04/2024 11:5 8 AM CDT us Magda Madsen DO LABORATORY Fin al Result [facility] [address] [place] [address], * CULTURE, BACTERIA, BLOOD (12/04/2024 4:00 AM CDT) Only the most recent of4 resultswithin the time period is included. SPEC DESCRIPTION BLOOD 12/04/2024 2:13 AM CDT [facility] SPECIAL REQUESTS NO SPECIAL REQUEST 12/04/2024 2:13 AM CDT [facility] CULTURE RESULT NO GROWTH 5 DAYS 12/09/2024 4:45 AM CDT [facility] BLOOD SPECIMEN OBTAINED FOR BLOOD CULTURE / Unknown 12/04/2024 4:00 AM CDT 12/04/2024 4:28 AM CDT Vee Buckner MD MICROBIOLOGY - GENERAL O RDERABLES Final Result Performing Organization Address City/[facility] Co de Phone Number [facility] [address] [place] [address], * (ABNORMAL) MRSA SCREENING (12/04/2024 2:30 AM CDT) Only the most recent of2 resultswithin the time period is included. SPEC DESCRIPTION NASAL 12/04/2024 2:36 AM CDT [facility] SPECIAL REQUESTS NO SPECIAL REQUEST 12/04/2024 2:36 AM CDT [facility] CULTURE RESULT METHICILLIN RESISTANT STAPHYLOCOCCUS AUREUS ISOLATED(AA) 12/05/2024 6:49 AM CDT [facility] CULTURE RESULT CALLED MRSA RESULT TO AND REPEATED BACK BY LYNETTE MIX RN AT [phone] DY 12/05/2024 6:49 AM CDT [facility] SPECIMEN FROM INTERNAL NOSE / Unknown 12/04/2024 2:30 AM CDT 12/04/2024 2:46 AM CDT Nadine Ayala DO MICROBIOLOGY - GENERAL ORDER SHABNAM Final Result Performing Organization Address [facility] Co de Phone Number [facility] [address] [place] [address], * URINE BACTERIA CULTURE (12/03/2024 11:50 PM CDT) SPEC DESCRIPTION URINE CLEAN CATCH 12/04/2024 2:12 AM CDT [facility] SPECIAL REQUESTS NO SPECIAL REQUEST 12/04/2024 2:12 AM CDT [facility] CULTURE RESULT POLYMICROBIAL GROWTH CONSISTENT WITH NORMAL GENITAL STEPHANIE. SUSCEPTIBILITIES NOT ROUTINELY PERFORMED. 12/05/2024 8:34 AM CDT [facility] URINE SPECIMEN OBTAINED BY CLEAN CATCH PROCEDURE / Unknown 12/03/2024 11:50 PM CDT 12/04/2024 2:49 AM CDT Vee Buckner MD MICROBIOLOGY - GENERAL O RDERABLES Final Result Performing Organization Address [facility] Co de Phone Number [facility] [address] [place] [address], * (ABNORMAL) HEMOGLOBIN, GLYCOSYLATED (11/24/2024 3:50 AM CDT) HGB A1C 9.2(H) <5.7 % 11/24/2024 4:47 AM CDT [facility] Comment: ADA GUIDELINES 2010 5.7 TO 6.4% INCREASED RISK OF DIABETES > OR = 6.5% CONSISTENT WITH DIABETES ESTIMATED AVG GLUCOSE 217 mg/dL 11/24/2024 4:47 AM CDT [facility] 11/24/2024 3:50 AM CDT Diaz Anthony MD LABORATORY Final Result [facility] [address] [place] [address], * RESPIRATORY PCR PANEL 2 (11/23/2024 12:15 PM CDT) ADENOVIRUS PCR (RESP) NOT DETECTED NOT DETECTED 11/23/2024 1:38 PM CDT [facility] CORONAVIRUS 229E PCR (RESP) NOT DETECTED NOT DETECTED 11/23/2024 1:38 PM CDT [facility] CORONAVIRUS HKU1 PCR (RESP) NOT DETECTED NOT DETECTED 11/23/2024 1:38 PM CDT [facility] CORONAVIRUS NL63 PCR (RESP) NOT DETECTED NOT DETECTED 11/23/2024 1:38 PM CDT [facility] CORONAVIRUS OC43 PCR (RESP) NOT DETECTED NOT DETECTED 11/23/2024 1:38 PM CDT [facility] METAPNEUMOVIRUS PCR (RESP) NOT DETECTED NOT DETECTED 11/23/2024 1:38 PM CDT [facility] RHINOVIRUS/ENTEROV IRUS PCR (RESP) NOT DETECTED NOT DETECTED 11/23/2024 1:38 PM CDT [facility] INFLUENZA A PCR (RESP) NOT DETECTED NOT DETECTED 11/23/2024 1:38 PM CDT [facility] INFLUENZA B PCR (RESP) NOT DETECTED NOT DETECTED 11/23/2024 1:38 PM CDT [facility] PARAINFLUENZA 1 PCR (RESP) NOT DETECTED NOT DETECTED 11/23/2024 1:38 PM CDT [facility] PARAINFLUENZA 2 PCR (RESP) NOT DETECTED NOT DETECTED 11/23/2024 1:38 PM CDT [facility] PARAINFLUENZA 3 PCR (RESP) NOT DETECTED NOT DETECTED 11/23/2024 1:38 PM CDT [facility] PARAINFLUENZA 4 PCR (RESP) NOT DETECTED NOT DETECTED 11/23/2024 1:38 PM CDT [facility] RSV PCR (RESP) NOT DETECTED NOT DETECTED 11/23/2024 1:38 PM CDT [facility] B PARAPERTUSIS PCR (RESP) NOT DETECTED NOT DETECTED 11/23/2024 1:38 PM CDT [facility] BORDETELLA PERTUSSIS PCR (RESP) NOT DETECTED NOT DETECTED 11/23/2024 1:38 PM CDT [facility] CHLAMYDOPHILA PNEUMONIAE PCR (RESP) NOT DETECTED NOT DETECTED 11/23/2024 1:38 PM CDT [facility] MYCOPLASMA PNEUMONIAE PCR (RESP) NOT DETECTED NOT DETECTED 11/23/2024 1:38 PM CDT [facility] CORONAVIRUS SARS COV 2 PCR (RESP) NOT DETECTED NOT DETECTED 11/23/2024 1:38 PM CDT [facility] NASOPHARYNGEAL SWAB / Unknown 11/23/2024 12:15 PM CDT Dania LEVINE MICROBIOLOGY - GENERAL OR DERABLES Final Result [facility] [address] [place] [address], [place] [phone] * (ABNORMAL) PROCALCITONIN (PCT) (11/23/2024 8:43 AM CDT) PROCALCITONIN 19.39(H) 0.00 - 0.49 NG/ML 11/23/2024 10:19 AM CDT [facility] 11/23/2024 8:43 AM CDT Daina Ram ROSITANP LABORATORY Final Res ult [facility] [address] [place] [address], [place] [phone] * Critical Care (11/23/2024 6:32 AM CDT) [...] * Bronchoscopy (11/21/2024 9:52 AM CDT) Narrative [facility] - 11/21/2024 9:52 AM CDT Sahra Dominguez MD 11/21/2024 9:[address] [facility] Bronchoscopy Procedure Note: PreOp Diagnosis: [...] physician, the nurse, the anesthesiologist and the general office clerk in the procedure room. Procedure(s): -Radial endobronchial [...] Sahra Dominguez MD PFT ORDERABLES Final Result [facility] [address] [place] [address], * CULTURE, TB/AFB W/ STAIN (11/21/2024 9:42 AM CDT) Only the most recent of3 resultswithin the time period is included. SPECIMEN SOURCE LEFT LOWER LUNG 01/29/2025 11:58 AM CDT [facility] RESULT REPORT 11/23/2024 6:47 PM CDT [employer] Comment: Mycobacteria, Culture, with Fluorochrome Smear Mycobacteria Stn,AF,Fluor SOURCE : LLL LUNG BIOPSY Result/Comment: No acid-fast bacilli seen. Mycobacteria smear result should be used as an adjunct to culture in diagnosing mycobacterial disease (e.g. tuberculosis). If intended, please ensure an order for Mycobacteria (Tomh-Iaib-Tyjcfcu) culture has also been submitted. Acid Fast Culture SOURCE : LLL LUNG BIOPSY Result/Comment: No Mycobacterium species isolated after 6 weeks incubation. Test Performed by [facility] [address], [address] [place], [place] Tessa Fried M.D., Ph.D., Director of Laboratories , [place] [id number] REPORT STATUS FINAL 01/10/2025 9:06 AM CDT [facility] TISSUE LEFT LUNG STRUCTURE / Unknown 11/21/2024 9:42 AM CDT Sahra Dominguez MD MICROBIOLOGY - GENERAL ORDERAB LES Final Result Performing Organization Address City/[facility]/ZIP Co de Phone Number [employer] [place]AH [address] [place], [place] , [place] [phone] [facility] [address] [place] [address], [place] [phone] * CULTURE, FUNGUS W/ STAIN (11/21/2024 9:42 AM CDT) Only the most recent of3 resultswithin the time period is included. SPEC DESCRIPTION LUNG,LEFT 11/21/2024 9:52 AM CDT [facility] SPECIAL REQUESTS NO SPECIAL REQUEST 11/21/2024 9:52 AM CDT [facility] STAIN RESULT: NO YEAST OR FUNGAL ELEMENTS SEEN 11/21/2024 2:45 PM CDT [facility] CULTURE RESULT NO FUNGUS ISOLATED AT 4 WEEKS. 12/23/2024 5:34 PM CDT [facility] TISSUE LEFT LUNG STRUCTURE / Unknown 11/21/2024 9:42 AM CDT Sahra Dominguez MD MICROBIOLOGY - GENERAL ORDERAB LES Final Result [facility] [address] [place] [address], [place] [phone] * CULTURE, TISSUE W/GRAM STAIN (11/21/2024 9:42 AM CDT) SPEC DESCRIPTION LUNG,LEFT 11/21/2024 9:52 AM CDT [facility] SPECIAL REQUESTS NO SPECIAL REQUEST 11/21/2024 9:52 AM CDT [facility] GRAM STAIN RESULT NO WHITE BLOOD CELLS SEEN 11/21/2024 2:44 PM CDT [facility] GRAM STAIN RESULT NO ORGANISMS SEEN 11/21/2024 2:44 PM CDT [facility] CULTURE RESULT NO GROWTH 3 DAYS 11/24/2024 7:39 AM CDT [facility] TISSUE LEFT LUNG STRUCTURE / Unknown 11/21/2024 9:42 AM CDT Sahra Dominguez MD MICROBIOLOGY - GENERAL ORDERAB LES Final Result Performing Organization Address City/[facility]/ZIP Co de Phone Number [facility] [address] [place] [address], [place] [phone] * CULTURE LOWER RESPIRATORY W/GRAM STAIN (11/21/2024 9:30 AM CDT) Only the most recent of2 resultswithin the time period is included. SPEC DESCRIPTION BRONCHIAL BRUSHING,LT 11/21/2024 9:52 AM CDT [facility] SPECIAL REQUESTS NO SPECIAL REQUEST 11/21/2024 9:52 AM CDT [facility] GRAM STAIN RESULT NO WHITE BLOOD CELLS SEEN 11/21/2024 2:44 PM CDT [facility] GRAM STAIN RESULT NO ORGANISMS SEEN 11/21/2024 2:44 PM CDT [facility] CULTURE RESULT NO GROWTH 2 DAYS 11/23/2024 12:16 PM CDT [facility] RESPIRATORY (BRONCHIAL BRUSHING, LT) 11/21/2024 9:30 AM CDT Sahra Dominguez MD MICROBIOLOGY - GENERAL ORDERAB LES Final Result [facility] [address] [place] [address], [place] [phone] * CELL COUNT W/ DIFF BODY FLUID (11/21/2024 9:27 AM CDT) SOURCE (FLUID) BRONCHOALVEO LAVAGE,LT 11/21/2024 9:52 AM CDT [facility] VOLUME (FLUID) 40.0 mL 11/21/2024 11:25 AM CDT [facility] COLOR (FLUID) CLEAR 11/21/2024 11:25 AM CDT [facility] TURBIDITY COLORLESS 11/21/2024 11:25 AM CDT [facility] RBC (FLUID) 19 CELLS/UL 11/21/2024 11:25 AM CDT [facility] Comment: The reference range and other method performance specifications have not been established for this assay on body fluids. The test result should be integrated into the clinical context for interpretation and utilized in comparison to blood concentrations of the analyte as appropriate. TOTAL NUCLEATED CELL COUNT 0 CELLS/UL 11/21/2024 11:25 AM CDT [facility] Comment: The reference range and [...] FLUIDS AND STOOLS ORDERAB LES Final Result [facility] [address] [place] [address], * CYTOLOGY GENERIC (11/21/2024 12:00 AM CDT) CYTOLOGY OTHER [facility] Department of Laboratory Medicine [address] [place] [address] , extension [phone] Pathology Report Non-gynecologic Cytology Report Name: LYNETTE ANGELA Specimen #: [id number] Age: 2 1995 (Age: 29) Location: [facility] Sex: F Procedure Date: 11/21/2024 [facility] #: [id number] Date Received: 11/22/2024 Date Reported: 11/23/2024 Provider: SAHRA DOMINGUEZ MD Source: A: LUNG, LEFT LOWER LOBE, BRONCHOALVEOLAR LAVAGE B: LUNG, LEFT LOWER LOBE, BRONCHIAL BRUSHING Clinical History: LLL Lung consolidation. Correlate with [id number] FINAL DIAGNOSIS: A. Lung, left lower lobe, [...] interpretation, and sign out were performed at [facility], [address] [place] [address]. Electronically Signed Out TESSA REARDON MD [facility] RESPIRATORY (BRONCHOALVEO LAVAGE, LT) 11/21/2024 9:27 AM CDT Specimen from respiratory system (specimen) (BRONCHIAL BRUSHING, LT) 11/21/2024 9:33 AM CDT us Sahra Dominguez MD PATHOLOGY/CYTOLOGY ORDERABLES Final Result [facility] [address] [place] [address], [id number] * Pathology (11/21/2024 12:00 AM CDT) PATHOLOGY [facility] Department of Laboratory Medicine [address] [place] [address] , extension [phone] Pathology Report Surgical Pathology Report Name: LYNETTE ANGELA Specimen #: [id number] Age: 2 1995 (Age: 29) Location: [facility] Sex: F Procedure Date: 11/21/2024 Hospital #: [id number] Date Received: 11/22/2024 Date Reported: 11/24/2024 Provider: [...] interpretation, and sign out were performed at [facility], [address] [place] [address]. All immunohistochemical and histochemical tests were developed by and performed at [facility], [address] [place] [address]. All tests reported here have not been cleared or approved by the U.S. Food and Drug Administration (FDA). This laboratory is regulated under CLIA as qualified to perform high-complexity testing. These tests are used for clinical purposes. They should not be regarded as investigational or for research. Positive and negative controls show appropriate reactivity. Electronically Signed Out TESSA REARDON MD [facility] TISSUE LEFT LUNG STRUCTURE / Unknown 11/21/2024 9:40 AM CDT us Sahra Dominguez MD PATHOLOGY/CYTOLOGY ORDERABLES Final Result [facility] [address] [place] [address], [id number] * XR FOOT RT 3V (11/16/2024 10:59 [...] 3:54 PM Narrative 11/21/2024 3:58 PM CDT [address] [address] Examination: XR ANKLE RT M3V, XR FOOT [...] Procedure Note Abel Cisneros MD - 11/21/[address] [address] Examination: XR ANKLE RT M3V, XR FOOT [...] 3:54 PM Narrative 11/21/2024 3:58 PM CDT [address] [address] Examination: XR ANKLE RT M3V, XR FOOT [...] Procedure Note Abel Cisneros MD - 11/21/[address] [address] Examination: XR ANKLE RT M3V, XR FOOT [...] 8:15 AM Narrative 11/12/2024 8:22 AM CDT [address] [address] EXAMINATION: CT CHEST WO CON EXAM DATE: [...] Procedure Note Broderick Blue DO - 11/12/[address] [address] EXAMINATION: CT CHEST WO CON EXAM DATE: [...] VE NON-REACTI VE 08/27/2024 12:38 PM CDT [facility] HEP B CORE IGM NON-REACTI VE NON-REACTI VE 08/27/2024 12:38 PM CDT [facility] HAV IGM NON-REACTI VE NON-REACTI VE 08/27/2024 12:38 PM CDT [facility] HEPATITIS C AB NON-REACTI VE NON-REACTI VE 08/27/2024 12:38 PM CDT [facility] 08/27/2024 9:41 AM CDT Lily Louis MD LABORATORY Final Result [facility] [address] [place] [address], from Last 3 Months or Most Recently Relevant to Health Maintenance Additional Health Concerns Infection Onset Date Last Indicated MRSA Comment:04/27/23 +MRSA Urine 10/23/23 +MRSA from [facility]. Added from external infection. Source: [facility]. 02/09/24 +MRSA Nares from [facility]. 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 09/23/2024 09/23/2024 Insurance MEDICARE MEDICAID Advance Directives Documents on File Type Date Recorded Patient Frame Operator Expl anation DNR (Do Not Resuscitate) Documentation [...] 8:32 AM 10/16/2024 6:48 PM Care Teams Gluing Machine Offbearer Relationship Specialty Start Date End Date Edgardo Aldridge MD [address] [facility] [address] w[place]ens [address] [place] [id number] PCP - General FAMILY PRACTICE 07/03/24 Keely Ugalde, COAL SHOVELER [address] [place] [address] PCP - Hospice Attending 10/06/24 Keely Ugalde, TAMARA [address] [place] [address] Nurse Practitioner PALLIATIVE CARE 10/09/24 Odilon Tellez MD 4550 [facility] [address] [address] Consulting Physician NEPHROLOGY 11/17/24 Sahra Dominguez MD [address] [address] Consulting Physician Internal Medicine Pulmonary Disease 11/17/24 Young Vasquez MD 4921 [facility] 8 [place] [address] GASTROENTEROLOGY 11/17/24 Andrei Chaves MD [address] [place] [address] SURGERY 11/17/24
--- OUTSIDE RECORDS SUMMARY | 2025-01-29 16:40 | XMS_ITS | Encounter Summary ---
Author Organization [facility] Address Count includes the [facility]6 [place] [address] Care Team Providers Care Wood Borer Name Role Phone Edgardo Aldridge MD Primary Care Provider [phone] Keely Ugalde DATA SECURITY COORDINATOR Unavailable [phone] Keely Ugalde DATA SECURITY COORDINATOR Unavailable [phone] Odilon Tellez MD Unavailable [phone] Leonardo Washburn MD Unavailable [phone] Young Vasquez MD Unavailable [phone] Andrei Chaves MD Unavailable [phone] Encounter Details Date Type Department Care Team (Late st Contact Info) Description 11/30/2024 Results Follow-Up [facility] Endo/GI [place], [place] [id number] Leonardo Washburn MD 3 [facility] [address] [place], [place] [id number] Pathology, CYTOLOGY GENERIC, CULTURE, TISSUE W/GRAM STAIN, [...] doctor or pharmacy? Never 11/23/2024 [facility] Utilities Answer Date Recorded In the past 12 months has e Tut[employer], gas, oil, or water Payoff threatened to shut off services in your [...] often do you attend chur ch or jain services? Never 11/23/2024 Do you belong to [...] Recorded Patient Health Questionnaire-2 Score 0 11/23/2024 [facility] [place] of Occupat ional Health - Occupational Stress [...] place to sleep or slept in a jail (including now)? No 03/20/2023 Housing Stability Vital Sign Answer Pablo e Recorded In the last 12 months, was t here a time when you were not able to pay the mortgage or rent on time? No 12/04/2024 In the past 12 months, how m any times have you moved where you were living? 0 12/04/2024 At any time in the past 12 m [facility], were you homeless or living in a jail (including now)? No 12/04/2024 Comments No Sex [...] PM CDT Celina Lara RN Active * [place] Suicide Severity Rating Scale (Screener/Recent Self-Report) Question [...] st Contact Info) Description 05/24/2025 10:20 AM WORD PROCESSING SPECIALIST Office Visit [facility] Multispecialty Care - [facility] [address] [facility] [address] [place] [address] Leonardo Washburn MD [address] [place] [address] documented as of this encounter Goals Goal Patient Goal Type Associated Problems Recent Progress Patient-Stated? Author HOME TO INDEPENDENT LIVING. General No Chiquis Alicia RN Patient will return to prior living situation and remain independent in ADLs upon discharge from hospital Lifestyle No Jeri Lara LSW Health - patient able to perform ADLs independently Lifestyle No Latrice Marie BROKE BEATER OPERATOR Health - patient able to perform ADLs independently Lifestyle No Latrice Marie BROKE BEATER OPERATOR Patient will return to prior living situation and remain independent in ADLs upon discharge from hospital Lifestyle No Joanne Luu RN Family - family caregiver with be involved in care transitions and discharge planning Lifestyle No Latrice Marie BROKE BEATER OPERATOR documented as of this encounter Visit Diagnoses Not on filedocumented in this encounter Additional Health Concerns Infection Onset Date Last Indicated Resolved Time MRSA Comment:04/27/23 +MRSA Urine 10/23/23 +MRSA from [facility]. Added from external infection. Source: [facility] Physicians. 02/09/24 +MRSA Nares from [facility]. 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 09/23/2024 09/23/2024 COVID-19 Rule Out 12/17/2024 12/17/2024 12/17/2024 6:37 PM CDT Respiratory Rule Out 12/17/2024 12/17/2024 025 6:38 PM CDT documented as of this encounter Care Teams Wood Borer Relationship Specialty Start Date End Date Edgardo Aldridge MD 5600 [facility] [address] [place] [address] PCP - General FAMILY PRACTICE 07/03/24 Keely Ugalde APRN [address] [place] [address] PCP - Hospice Attending 10/06/24 Keely Ugalde APRN [address] [place] [address] Nurse Practitioner PALLIATIVE CARE 10/09/24 Odilno Tellez MD [address] [address] Consulting Physician NEPHROLOGY 11/17/24 Leonardo Washburn MD [address] [address] Consulting Physician Internal Medicine Pulmonary Disease 11/17/24 Young Vasquez MD 4921 [facility] 8 [place] [address] GASTROENTEROLOGY 11/17/[address] [facility] [address] [place] [address] SURGERY 11/17/24 documented as of this encounter
--- OUTSIDE RECORDS SUMMARY | 2025-01-29 16:40 | XMS_ITS | Encounter Summary ---
Author Organization [facility] Address [facility]6 [place] [address] Care Team Providers Care Meter Tester Polyphase Name Role Phone Lay Cota MD Primary Care Provider [phone] Eun Camacho Primary Care Provider [phone] None, Provider Primary Care Provider [facility] Lay Cota MD Primary Care Provider [phone] Edgardo Aldridge MD Primary Care Provider [phone] Keely Ugalde BATH TESTER Unavailable [phone] Keely Ugalde BATH TESTER Unavailable [phone] Odilon Tellez MD Unavailable [phone] Leonardo Washburn MD Unavailable [phone] Young Vasquez MD Unavailable [phone] Andrei Chaves MD Unavailable [phone] Encounter Details Date Type Department Care Team (Late st Contact Info) Description 01/03/2020 Telephone [facility] [address] [place] [address] Re Yeager CNA Social History [...] st Contact Info) Description 05/24/2025 10:20 AM PRESS SMITH HELPER Office Visit [facility] Medical Group Multispecialty Care [address] [place] [address] Leonardo Washburn MD [address] [place] [address] documented as of this encounter Goals Goal [...] Rule Out 02/21/2023 02/21/2023 02/21/2023 11:06 AM PRESS SMITH HELPER MRSA Comment:04/27/23 +MRSA Urine 10/23/23 +MRSA from [facility]. Added from external infection. Source: [facility] Physicians. 02/09/24 +MRSA Nares from [facility]. 05/08/24 +MRSA Nares 10/23/2023 12/04/2024 COVID-19 Rule Out 03/12/2024 03/12/2024 03/12/2024 3:51 PM PRESS SMITH HELPER COVID-19 Rule Out 04/04/2024 04/04/2024 04/04/2024 5:10 PM PRESS SMITH HELPER COVID-19 Rule Out 04/24/2024 04/24/2024 04/24/2024 8:24 PM PRESS SMITH HELPER RSV 04/24/2024 04/24/2024 05/04/2024 12:3 2 AM PRESS SMITH HELPER COVID-19 Rule Out 05/08/2024 05/08/2024 05/08/2024 4:15 PM PRESS SMITH HELPER Tuberculosis Rule-Out 05/09/2024 05/09/20242024 10:09 AM PRESS SMITH HELPER COVID-19 Rule Out 05/17/2024 05/17/2024 05/17/2024 4:44 PM PRESS SMITH HELPER Respiratory Rule Out 07/05/2024 07/05/2024 025 10:03 [...] documented as of this encounter Care Teams Meter Tester Polyphase Relationship Specialty Start Date End Date Lay Cota MD PCP - General FAMILY PRACTICE 02/19/19 10/26/22 Eun Camacho PA PCP - General PHYSICIAN FORENSIC SCIENCE TECHNICIAN 10/27/22 11/18/22 None, Simona, PCP - General UNKNOWN PHYSICIAN SPECIALTY 11/19/22 12/09/22 Lay Cota MD PCP - General FAMILY PRACTICE 12/10/22 07/02/24 Edgardo Aldridge MD [address] [facility] [address] [place] [address] PCP - General FAMILY PRACTICE 07/03/24 Keely Ugalde APRN [address] [place] [address] PCP - Hospice Attending 10/06/24 Keely Ugalde APRN 1 [place] [address] Nurse Practitioner PALLIATIVE CARE 10/09/24 Odilon Tellez MD [address] [address] Consulting Physician NEPHROLOGY 11/17/24 Leonardo Washburn MD [address] [address] Consulting Physician Internal Medicine Pulmonary Disease 11/17/24 Young Vasquez MD 4921 [facility] 8 [place] [address] GASTROENTEROLOGY 11/17/24 Andrei Chaves MD [address] [facility] 8106 [place] [address] SURGERY 11/17/24 documented as of this encounter
--- OUTSIDE RECORDS SUMMARY | 2025-01-29 16:41 | XMS_ITS | Encounter Summary ---
Author Organization [facility] Care Team Providers Care Sales Recruiting Coordinator Name Role Phone Unknown, Notinfile Primary Care Provider Unavail able Lay Villalta MD Primary Care Provider [phone] Tremayne Kebede MD Unavailable [phone] Georgia Mcbride FISHERY BIOLOGIST Unavailable [phone] Miscellaneous, Not In File Unavailable Unava ilable Eun Camacho Primary Care Provider + Cony Pemberton KARATE INSTRUCTOR Unavailable [phone] Antonette Vernon RN Unavailable [phone] Andrei Chaves MD PhD Unavailable [phone] Olivia Phelps MD Unavailable [phone] Edgardo Aldridge MD Primary Care Provider [phone] Odilon Tellez MD Unavailable [phone] Miscellaneous, Not In File Unavailable Unava ilable Ct Boggs KARATE INSTRUCTOR Unavailable [phone] Odilon Tellez MD Unavailable [phone] Tracey Felix RN Unavailable [phone] Ayaka Thomas MD Unavailable [phone] Yumi Jones NP Unavailable [phone] TosinRogersRuthy KARATE INSTRUCTOR Unavailable Unavaila ble Feli Boggs RN Unavailable [phone] Mendel Bowling RN Unavailable [phone] Leslie Baptiste [facility] Unavailable Mendel Bowling RN Unavailable [phone] Odilon Tellez MD Unavailable [phone] Mavis Barahona RN Unavailable [phone] Mahnaz Garcia RN Unavailable [phone] Jaimie Glez RN Unavailable [phone] Encounter Details Date Type Department Care Team (Latest Contact Info) Description 04/07/2016 Orders Only [facility] CLINCONV Provider, MD S[facility] [address] [place] [address] Social History Tobacco Use Types Packs/Day Years Used Date Smoking Tobacco: Never Comments Unknown Sex and Gender Information Value Date Recorded Sex Assigned at Not on file Legal Sex Female 9:16 AM RECEIVER SETTER Gender Identity Not on file Sexual Orientation Not on file documented as of this encounter Plan of Treatment Not on file documented as of this encounter Procedures Procedure Name Priority Date/Time Associated Diagnosis Comments CARDIOLOGY REPORT 04/07/2016 12: 00 AM RECEIVER SETTER documented in this encounter Results * CARDIOLOGY REPORT (04/07/2016 12:00 AM RECEIVER SETTER) Anatomical Region Laterality Modality Other Narrative 04/07/2016 12:00 AM RECEIVER SETTER Ordered by an unspecified provider. Historical Provider [...] CDT COVID19 02/02/2020 02/02/2020 02/19/2020 3:05 AM RECEIVER SETTER COVID: Recovered Comment:Added based on recent COVID [...] COVID: Suspected 06/15/2023 06/15/2023 06/15/2023 5:53 PM RECEIVER SETTER C. 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 Source: [facility]. 08/20/2024 Carbapenemase, Unspecified Comment:Added from external infection. Source: [facility]. Kleb pneumo KPC 09/23/2024 10/31/2024 3:07 PM C DT CP-FEED INSPECTION SUPERVISOR Comment:Added from external infection. Source: [facility]. Kleb pneumo KPC 10/31/2024 10/31/2024 documented as of this encounter Care Teams Sales Recruiting Coordinator Relationship Specialty Start Date End Date Unknown, Notinfile PCP - General 12/28/16 08/23/18 Lay Villalta MD PCP - General Family Medicine 08/24/18 07/17/21 Eun Camacho PA PCP - General Family Medicine 07/18/21 03/08/23 Edgardo Aldridge MD 9515 [facility] 2 or 4 [place] [address] PCP - General Family Medicine 04/02/23 Tremayne Kebede MD Consulting Physician Gastroenterology 02/05/20 3 Georgia Mcbride LPN [address] [place] [address] [address] [place] [address] ACO Care Rfid Systems Engineer 11/28/20 12/19/20 Miscellaneous, Not In File 07/17/21 03/16/23 Cnoy Pemberton, [facility] 4518 [facility] Mailstop [phone] [place] [address] SHOP Outpatient Nick Setter 12/07/22 12/07/22 Antonette Vernon, KADY [address] [place] [address] SHOP Outpatient Nick Setter 12/08/22 01/05/23 Andrei Chaves MD PhD 4921 [facility] [address] [place] [address] Referring Physician General Surgery 03/17/23 Olivia Pehlps MD [address] [place], [place] [address] Consulting Physician Nephrology 03/17/23 Odilon Tellez MD [address] [place], [place] [address] Consulting Physician Nephrology 05/01/23 12/04/24 Miscellaneous, Not In File 07/08/23 01/24/24 Ct Boggs, [facility] 4590 [facility] Mailstop [phone] [place] [address] SHOP Outpatient Nick Setter 07/09/23 08/05/23 Odilon Tellez MD [address] [place], [place] [address] Referring Physician Nephrology 11/12/23 Tracey Felix, KADY [address] [place] [address] Draw End Hand 11/12/23 11/17/23 Ayaka Thomas MD [address] [facility] [address] [place] [address] Fellow Internal Medicine 12/17/23 Yumi Jones NP [address] [facility] [address] [place] [address] Nurse Practitioner Hospice and Palliative Medicine 08/16/23 Ruthy Leahy LCSW Cherry Dipper 12/31/23 02/22/24 Feli Boggs, KADY [address] [place] [address] [address] [place] [address] Commercial Painter 12/31/23 01/02/24 Mendel Bowling, KADY [address] [place] [address] [address] [place] [address] Commercial Painter 01/03/24 03/23/24 Leslie Baptiste, [address] [place] [address] Pharmacist Pharmacy 01/13/24 02/03/24 Mendel Bowling, KADY [address] [place] [address] [address] [place] [address] Commercial Painter 11/07/24 01/04/25 Odilon Tellez MD [address] [facility] [address] [place] [address] Consulting Physician Nephrology 12/05/24 Mavis Barahona, KADY [address] [facility] [address] [place] [address] Draw End Hand 12/20/24 01/08/25 Mahnaz Garcia, KADY [address] [place] [address] [address] [place] [address] Commercial Painter 01/15/25 01/15/25 Jaimie Glez RN [address] [place] [address] [address] [place] [address] Commercial Painter 01/29/25 documented as of this encounter
--- OUTSIDE RECORDS SUMMARY | 2025-01-29 16:41 | XMS_ITS | Encounter Summary ---
Author Organization [facility] Address [address] [place] [address] Care Team Providers Care Developer Programmer Analyst Name Role Phone Edgardo Aldridge MD Primary Care Provider [phone] Keely Ugalde RN STARS Unavailable [phone] Keely Ugalde RN STARS Unavailable [phone] Odilon Tellez MD Unavailable [phone] Leonardo Washburn MD Unavailable [phone] Young Vasquez MD Unavailable [phone] Andrei Chaves MD Unavailable [phone] Encounter Details Date Type Department Care Team (Latest Contact Info) Description 12/13/2024 Results Follow-Up [facility] Medical Group Multispecialty Care - [address], [address] [place] [phone] Leonardo Washburn MD 3 [facility] [address] [place] [address] Complete PFT (pre/post Daljit, Lung Vol, Diff Capacity) (18[address], 65279, [address]64[address], [address]) Social History Tobacco Use Types Packs/Day Years [...] from your doctor or pharmacy? Never 11/23/2024 [facility] Utilities Answer Date Recorded In the [...] week 11/23/2024 How often do you attend [facility] or oriental orthodox services? Never 11/23/2024 Do you belong to [...] Recorded Patient Health Questionnaire-2 Score 0 11/23/2024 [facility] of Occupat ional Health - Occupational Stress [...] any time in the past 12 m [facility], were you homeless or living in a [...] st Contact Info) Description 05/24/2025 10:20 AM SUPERVISOR EDUCATION Office Visit [facility] Medical Group Multispecialty Care - [facility] [address] [facility] [address] [place] [address] Leonardo Washburn MD [address] [facility] [address] [place] [address] documented as of this encounter Goals Goal Patient Goal Type Associated Problems Recent Progress Patient-Stated? Author HOME TO INDEPENDENT LIVING. General No Chiquis Alicia RN Patient will return to prior living situation and remain independent in ADLs upon discharge from hospital Lifestyle No Jeri Lara LSW Health - patient able to perform ADLs independently Lifestyle No Latrice Marie PHYSICAL THERAPY AID Health - patient able to perform ADLs independently Lifestyle No Latrice Marie PHYSICAL THERAPY AID Patient will return to prior living situation and remain independent in ADLs upon discharge from hospital Lifestyle No Joanne Luu casting machine control board operator - family caregiver with be involved in care transitions and discharge planning Lifestyle No Latrice Marie PHYSICAL THERAPY AID documented as of this encounter Visit Diagnoses Not on filedocumented in this encounter Additional Health Concerns Infection Onset Date Last Indicated Resolved Time MRSA Comment:04/27/23 +MRSA Urine 10/23/23 +MRSA from [facility]. Added from external infection. Source: [facility] Physicians. 02/09/24 +MRSA Nares from [facility]. 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 09/23/2024 09/23/2024 COVID-19 Rule Out 12/17/2024 12/17/2024 12/17/2024 6:37 PM CDT Respiratory Rule Out 12/17/2024 12/17/2024 025 6:38 PM CDT documented as of this encounter Care Teams Developer Programmer Analyst Relationship Specialty Start Date End Date Edgardo Aldridge MD [address] [address] PCP - General FAMILY PRACTICE 07/03/24 Keely Ugalde APRN [address] [place] [address] PCP - Hospice Attending 10/06/24 Keely Ugalde APRN [address] [place] [address] Nurse Practitioner PALLIATIVE CARE 10/09/24 Odilon Tellez MD [address] [address] Consulting Physician NEPHROLOGY 11/17/24 Leonardo Washburn MD [address] [address] Consulting Physician Internal Medicine Pulmonary Disease 11/17/24 [place] [address] [place] [address] GASTROENTEROLOGY 11/17/24 Andrei Chaves MD [address] [facility] [address] [place], [place] [address] SURGERY 11/17/24 documented as of this encounter
--- OUTSIDE RECORDS SUMMARY | 2025-01-29 16:41 | XMS_ITS | Encounter Summary ---
Author Organization [facility] Facility Care Team Providers Care Sheet Metal Contractor Name Role Phone Unknown, Notinfile Primary Care Provider Unavail able Lay Villalta MD Primary Care Provider [phone] Tremayne Kebede MD Unavailable [phone] Georgia Mcbride MEDICAL LEADER Unavailable [phone] Miscellaneous, Not In File Unavailable Unava ilable Eun Camacho Primary Care Provider + Cony Pemberton TIRE REGROOVING MACHINE OPERATOR Unavailable [phone] Antonette Vernon RN Unavailable [phone] Andrei Chaves MD PhD Unavailable [phone] Olivia Phelps MD Unavailable [phone] Edgardo Aldridge MD Primary Care Provider [phone] Odilon Tellez MD Unavailable [phone] Miscellaneous, Not In File Unavailable Unava ilable Ct Boggs TIRE REGROOVING MACHINE OPERATOR Unavailable [phone] Odilon Tellez MD Unavailable [phone] Tracey Felix RN Unavailable [phone] Ayaka Thomas MD Unavailable [phone] Yumi Jones NP Unavailable [phone] TosinRogersRuthy TIRE REGROOVING MACHINE OPERATOR Unavailable Unavaila ble Feli Boggs RN Unavailable Mendel Bowling RN Unavailable [phone] Leslie Baptiste [facility] Unavailable [phone] Mendel Bowling RN Unavailable [phone] Odilon Tellez MD Unavailable [phone] Mavis Barahona RN Unavailable [phone] Mahnaz Garcia RN Unavailable [phone] Jaimie Glez RN Unavailable [phone] Encounter Details Date Type Department Care Team (Latest Contact Info) Description 09/13/2016 Orders Only [facility] CLINCONV Provider, MD [facility] [address] [place] [id number] Social History Tobacco Use Types Packs/Day Years Used Date Smoking Tobacco: Never Comments Unknown Sex and Gender Information Value Date Recorded Sex Assigned at Not on file Legal Sex Female 9:16 AM FLIGHT TEACHER Gender Identity Not on file Sexual Orientation [...] CDT COVID19 02/02/2020 02/02/2020 02/19/2020 3:05 AM FLIGHT TEACHER COVID: Recovered Comment:Added based on recent COVID [...] COVID: Suspected 06/15/2023 06/15/2023 06/15/2023 5:53 PM FLIGHT TEACHER C. difficile suspected 06/24/2023 06/24/202306/26 6:03 AM CDT COVID: Suspected 06/27/2023 06/27/2023 06/27/2023 7:07 PM CDT COVID: Suspected 07/10/2023 07/10/2023 07/10/2023 6:50 AM CDT COVID: Suspected 07/13/2023 07/13/2023 07/13/2023 9:45 PM CDT MRSA Comment:MRSA [facility] 06/21/24 10/23/2023 02/09/2024 06/21/2024 6:[address] C. 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 Source: [facility]. 08/20/2024 Carbapenemase, Unspecified Comment:Added from external infection. Source: [facility]. Kleb pneumo [facility]PC 09/23/2024 10/31/2024 3:07 PM C DT CP-CRA OFFICER Comment:Added from external infection. Source: [facility]. Kleb pneumo [facility]PC 10/31/2024 10/31/2024 documented as of this encounter Care Teams Sheet Metal Contractor Relationship Specialty Start Date End Date Unknown, Notinfile PCP - General 12/28/16 08/23/18 Lay Villalta MD PCP - General Family Medicine 08/24/18 07/17/21 Eun Camacho PA PCP - General Family Medicine 07/18/21 03/08/23 Edgardo Aldridge MD [address] [facility] [address] [place] [id number] PCP - General Family Medicine 04/02/23 Tremayne Kebede MD Consulting Physician Gastroenterology 02/05/20 3 Georgia Mcbride LPN [address] [place] [address] [address] [place] [address] ACO Care Manager Diversity 11/28/20 12/19/20 Miscellaneous, Not In File 07/17/21 03/16/23 Cony Pemberton, TIRE REGROOVING MACHINE OPERATOR [address] [facility] [place] Mailstop [phone] [place] [address] SHOP Outpatient Control Systems Technician 12/07/22 12/07/22 Antonette Vernon, KADY [address] [place] [address] SHOP Outpatient Control Systems Technician 12/08/22 01/05/23 Andrei Chaves MD PhD [address] [facility] [address] [place] [address] Referring Physician General Surgery 03/17/23 Olivia Phelps MD [address] [employer] [address] [place], [place] [address] Consulting Physician Nephrology 03/17/23 Odilon Tellez MD [address] [facility] [address] [place], [place] [address] Consulting Physician Nephrology 05/01/23 12/04/24 Miscellaneous, Not In File 07/08/23 01/24/24 Ct Bog[address], [facility] [address] [facility] [place] Mailstop [phone] [place] [address] SHOP Outpatient Control Systems Technician 07/09/23 08/05/23 Odilon Tellez MD [address] [employer] [address] [place] [address] Referring Physician Nephrology 11/12/23 Tracey Felix, KADY [address] [place] [address] Cone Machine Feeder 11/12/23 11/17/23 Ayaka Thomas MD [address] [facility] [address] [place] [address] Fellow Internal Medicine 12/17/23 Yumi Jones NP [address] [facility] [address] [place] [address] Nurse Practitioner Hospice and Palliative Medicine 08/16/23 Ruthy Leahy LCSW Java Technical Architect 12/31/23 02/22/24 Feli Boggs, RN [address] [place] [address] [address] [place] [address] Electric Plater 12/31/23 01/02/24 Mendel Bowling, KADY [address] [place] [address] [address] [place] [address] Electric Plater 01/03/24 03/23/24 Leslie Baptiste, [address] [place] [address] Pharmacist Pharmacy 01/13/24 02/03/24 Mendel Bowling, KADY [address] [place] [address] [address] [place] [address] Electric Plater 11/07/24 01/04/25 Odilon Tellez MD [address] [facility] [address] [place] [address] Consulting Physician Nephrology 12/05/24 Mavis Barahona, RN [address] [facility] [address] [place] [address] Cone Machine Feeder 12/20/24 01/08/25 Mahnaz Garcia, KADY [address] [place] [address] [address] [place] [address] Electric Plater 01/15/25 01/15/25 Jaimie Glez RN [address] [place] [address] [address] [place] [address] Electric Plater 01/29/25 documented as of this encounter
--- OUTSIDE RECORDS SUMMARY | 2025-01-29 16:42 | XMS_ITS | Clinical Summary ---
Author Organization [facility] Address [address] [place] [address] Care Team Providers Care Air Support Operations Operator Name Role Phone Andrei Chaves MD PhD Unavailable [phone] [place] Phelps MD Unavailable [phone] Edgardo Aldridge MD Primary Care Provider Odilon Tellez MD Unavailable [phone] Ayaka Thomas MD Unavailable [phone] Yumi Jones NP Unavailable [phone] Odilon Tellez MD Unavailable [phone] Jaimie Glez RN Unavailable [phone] Allergies Active Allergy Reactions Criticality Noted Date Comments Adhesive Rash Medium 03/11/2017 Adhesive Tape-Silicones Rash Medium 03/11/2017 Hydralazine Anaphylaxis,Hives ,Swelling,Angioed gauri,Urticaria High 06/29/2018 Hives on face and was not able to swallow Metoclopramide Other (See comments),Muscle pain High 03/29/2020 Uncontrolled movements; Extrapyramidal symptoms Trimethobenzamide Swelling Medium 01/11/2024 Medications blood-glucose meter,continuous (Dexcom G6 Pyrometallurgical Engineer) miscIndications:Unc ontrolled type 1 diabetes mellitus with hyperglycemia, with long-term current use of insulin ([facility]) 1 Dexcom G6 Pyrometallurgical Engineer 1 each 023 Active OneTouch Delica Plus [...] cell capsule Take 1 capsule by mouth ethics instructor before breakfast 2024 Discontinued( Therapy completed) albuterol [...] kidney, consider outpatient followup (e.g. renal US). 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 Continue to monitor. Hold any [...] mostly IV dilaudid and was on a GARNISHER briefly. - continues to have severe abdominal [...] same. Plan change to esophageal diet today. Cleaner And Presser to review prior to dc Plan f/u with Dr Chaves in GI as OP Assessment & Plan (03/31/2022 5:47 PM ELECTROMAGNET CRANE OPERATOR): Type 1 diabetic Cyclical vomiting, gastroparesis [...] year. Has an appointment for GI in [place] next month. Currently is on SSI, but [...] q1hr Assessment & Plan (05/15/2020 2:56 PM ELECTROMAGNET CRANE OPERATOR): Needs letter for another 2 weeks off and when returns needs intermittent restrictions on return with no more than 3 days per week, but not consecutive 3 days Assessment & Plan (05/15/2020 6:29 AM ELECTROMAGNET CRANE OPERATOR): Uncontrolled Cont treatment per GI Cont reglan Has PICC line Assessment & Plan (06/27/2019 8:44 AM CDT): - Chronic emesis which triggers DKA. No active symptoms now. - PCP follow up. - Glucose control as above. Assessment & Plan (04/21/2019 1:24 PM ELECTROMAGNET CRANE OPERATOR): -Patient reports h/o positive gastric emptying [...] had discussion with patient regarding pain control. custodial opioids would be a very poor choice for her, given her gastroparesis, young age, and potential for developing dependence/addiction. Will not discharge on opioids. Assessment & Plan (04/20/2019 6:16 PM ELECTROMAGNET CRANE OPERATOR): -Patient reports h/o positive gastric emptying [...] fluids Assessment & Plan (03/29/2020 5:23 AM ELECTROMAGNET CRANE OPERATOR): Uncontrolled Cont long acting insulin with SSI F/u with subcontract administrator Assessment & Plan (03/20/2020 5:26 AM ELECTROMAGNET CRANE OPERATOR): Uncontrolled Cont insulin pump per endocrinology [...] losartan Assessment & Plan (03/31/2022 5:47 PM ELECTROMAGNET CRANE OPERATOR): Not at goal Pt left office [...] 10mg Assessment & Plan (03/29/2020 5:24 AM ELECTROMAGNET CRANE OPERATOR): Stable Cont lisinopril, amlodipine Assessment & [...] lisinopril. Assessment & Plan (06/12/2019 12:12 PM ELECTROMAGNET CRANE OPERATOR): continue lisinopril and toprol xl , clonidine patch Assessment & Plan (06/11/2019 1:52 PM ELECTROMAGNET CRANE OPERATOR): _BP better today , continue lisinopril and toprol xl Assessment & Plan (05/07/2019 2:03 PM ELECTROMAGNET CRANE OPERATOR): On clonidine, metoprolol and lisinopril at home. - continue home clonidine and metoprolol - hold lisinopril for now (? EUGENIE related intestinal angioedema). May need to consider alternative anti-hypertensive if needed as a trial. Assessment & Plan (04/28/2019 4:43 PM ELECTROMAGNET CRANE OPERATOR): - Cont home meds Assessment & Plan (04/27/2019 2:59 PM ELECTROMAGNET CRANE OPERATOR): - Cont home meds Assessment & Plan (04/21/2019 12:59 PM ELECTROMAGNET CRANE OPERATOR): Clonidine patch and metoprolol XL -BP stable Assessment & Plan (04/11/2019 12:43 PM ELECTROMAGNET CRANE OPERATOR): Cont lisinopril and Toprol XL, and due for change of clonidine patch Assessment & Plan (04/10/2019 11:29 AM ELECTROMAGNET CRANE OPERATOR): BP elevated this am but improved [...] be an option per palliative consult at [facility]. She is no longer wishing for [...] 1400mL 07/06, but pt refusing catheterization. On MEDIA SPECIALIST already, but at risk for bladder perforation. [...] now controlled. Plan dc home today with [facility], orders placed 07/07. Transition meds to PO at discharge, as pt tolerating diet. Discharge Planning I have spent 30 minutes on discharge planning activities. Time spent was on Coordination of care, Follow up , Counselling with patient/family, discharge exam, parent/patient education, PCP communication, and Other provider communication. Assessment & Plan (06/15/2023 3:17 AM ELECTROMAGNET CRANE OPERATOR): Related with gastroparesis. See gastroparesis section Type [...] well, related to diabetes. Counseled on exterminator termite effects of poorly controlled diabetes by [...] discharged from ED. Came to [facility] ED on 07/12, again discharged from ED. Returned to [facility] on 07/13 with same symptoms and admitted [...] discharged from ED. Came to [facility] ED on 07/12, again discharged from ED. Returned to [facility] on 07/13 with same symptoms and admitted [...] 12/22/2022 Assessment & Plan (05/15/2020 6:30 AM ELECTROMAGNET CRANE OPERATOR): Will need to get flushed Weight loss [...] now. Urged patient to re-establish with previous subcontract administrator for management. Need back on insulin pump [...] appreciated Assessment & Plan (06/07/2020 3:17 PM ELECTROMAGNET CRANE OPERATOR): Persistent Cont reglan, zofran, compazine Refer to new gi Nausea & vomiting 05/07/2019 06/15/2023 Assessment & Plan (03/29/2020 5:23 AM ELECTROMAGNET CRANE OPERATOR): Uncontrolled Secondary to severe gastroparesis Will try scopolamine patch Cont zofran, compazine prn Assessment & Plan (06/12/2019 12:13 PM ELECTROMAGNET CRANE OPERATOR): -resolved -continue home meds, tolerating diet -has h/o cyclical vomiting and follows with GI -Reports benefit from recently added Motegrity and amitriptyline. She is on a low dose amitriptyline 25mg QHS. Will increase to 50mg QHS. Pt reports some restless leg side effects, advised her to watch carefully and reduce dose if RLS worsens. Assessment & Plan (06/11/2019 1:55 PM ELECTROMAGNET CRANE OPERATOR): -resolved -continue home meds, tolerating diet -has h/o cyclical vomiting and follows with GI Assessment & Plan (05/07/2019 1:59 PM ELECTROMAGNET CRANE OPERATOR): Previously seen by GI and felt to [...] 07/19/2023 Assessment & Plan (03/31/2022 5:48 PM ELECTROMAGNET CRANE OPERATOR): Seen by GI Fluids given Assessment & [...] GI Assessment & Plan (06/07/2020 3:17 PM ELECTROMAGNET CRANE OPERATOR): Persistent Cont jonny rodriguez, compazine Refer to new gi Assessment & Plan (05/31/2020 2:18 PM ELECTROMAGNET CRANE OPERATOR): Uncontrolled Cont treatment per GI Has PICC line Assessment & Plan (05/15/2020 6:29 AM ELECTROMAGNET CRANE OPERATOR): Uncontrolled Cont treatment per GI Has PICC line Assessment & Plan (03/20/2020 5:26 AM ELECTROMAGNET CRANE OPERATOR): Uncontrolled Cont treatment per GI To refer [...] up. Assessment & Plan (04/28/2019 4:43 PM ELECTROMAGNET CRANE OPERATOR): - Seen by GI last admission. Thought that available data and history more consistent with [facility]. - Started on low dose amitriptyline, will increase to 50mg - Uses promethazine for N/V Assessment & Plan (04/27/2019 2:53 PM ELECTROMAGNET CRANE OPERATOR): - Seen by GI last admission. Thought [...] considered. Assessment & Plan (05/07/2019 2:02 PM ELECTROMAGNET CRANE OPERATOR): Has not yet started Motegrity at home due to issues with pharmacy. No BM in 3 days per patient. - start motegrity 2mg qd Assessment & Plan (04/28/2019 4:43 PM ELECTROMAGNET CRANE OPERATOR): - Had BM after none for 5 days. Rx'd prucalopride last admission, just today arrived to pharmacy so not taken. She reports that she received opioids for the first time last admission - Will hold for now as she says she alternates with diarreha. Assessment & Plan (04/27/2019 3:00 PM ELECTROMAGNET CRANE OPERATOR): - Had BM after none for 5 [...] consult Assessment & Plan (05/15/2020 6:30 AM ELECTROMAGNET CRANE OPERATOR): PICC line in place because of need for recurrent IVF Assessment & Plan (06/27/2019 8:49 AM CDT): - 2/2 diabeters and chronic poor control and long standing cyclic vomiting and gastroperesis. Diet as tolerated, diabetic diet. Assessment & Plan (06/12/2019 12:12 PM ELECTROMAGNET CRANE OPERATOR): -Continue supplements as tolerated Dehydration 04/25/2019 07/19/2023 [...] recs Assessment & Plan (04/21/2019 12:59 PM ELECTROMAGNET CRANE OPERATOR): -Cleaner And Presser consult, supplements as recommended. Patient doesn't like taste of many supplements Assessment & Plan (04/11/2019 12:43 PM ELECTROMAGNET CRANE OPERATOR): Treating nausea and encourage more regular food [...] gastroparesis. Assessment & Plan (06/12/2019 12:11 PM ELECTROMAGNET CRANE OPERATOR): - weaned off isulin drip , now [...] today Assessment & Plan (06/11/2019 1:55 PM ELECTROMAGNET CRANE OPERATOR): - weaned off onsulin drip , now [...] . Assessment & Plan (04/28/2019 4:43 PM ELECTROMAGNET CRANE OPERATOR): - Recurrent admissions, seem to be brought [...] intake Assessment & Plan (04/27/2019 2:59 PM ELECTROMAGNET CRANE OPERATOR): - Recurrent admissions, seem to be brought [...] outpatient Assessment & Plan (04/21/2019 1:02 PM ELECTROMAGNET CRANE OPERATOR): -DKA resolved after IV insulin, IVF and electrolyte repletion in ICU Assessment & Plan (04/20/2019 6:13 PM ELECTROMAGNET CRANE OPERATOR): -DKA resolved after IV insulin, IVF and electrolyte repletion in ICU Assessment & Plan (04/11/2019 12:48 PM ELECTROMAGNET CRANE OPERATOR): Presented with N/V which she felt was [...] closely Assessment & Plan (04/10/2019 11:28 AM ELECTROMAGNET CRANE OPERATOR): Presented with N/V which she felt was due to gastroparesis flare, in DKA on admission. Anion gap closed, received 18 Units Lantus before midnight. Cont present SQ insulin orders, monitor sugars closely Diabetes education ordered Discharge home once tolerating po later today or tomorrow Concussion with loss of consciousness 11/08/2018 03/31/2022 Polyneuropathy 11/08/2018 12/22/2022 Diabetes mellitus 11/08/2018 03/31/2022 Diabetes mellitus with gastr oparesis ([facility]) 07/07/2018 03/31/2022 Assessment & Plan (07/31/2021 11:00 [...] to repetitive movements c/w tardive dyskinesia. 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 Was previously on Reglan but discontinued due to repetitive movements c/w tardive dyskinesia. 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 Recently admitted at [facility] but left 2-3 days prior to admission here as she says she was unhappy with her care. Nausea recurred this am but no vomiting. Will resume IVF if she doesn't tolerate lunch. I reviewed some records from [facility] and found a gastric emptying study done in [place] which was normal, though this doesn't exclude gastroparesis I wonder if there is a functional component as well Regardless, cont supportive care with prn Zofran and added prn Compazine Assessment & Plan (04/10/2019 11:29 AM ELECTROMAGNET CRANE OPERATOR): Longstanding gastroparesis per patient. Recently admitted at [facility] but left 2-3 days prior to admission here as she says she was unhappy with her care. Cont prn antiemetics, she says Reglan didn't help in the past Outpatient GI F/U Resume IVF if she starts vomiting again Assessment & Plan (02/03/2019 9:53 AM CDT): Well controlled now since seeing subcontract administrator and using OmniPod. She is cleared to [...] AM. Assessment & Plan (05/07/2019 1:58 PM ELECTROMAGNET CRANE OPERATOR): History of brittle diabetes with multiple recent [...] AM Assessment & Plan (04/21/2019 1:21 PM ELECTROMAGNET CRANE OPERATOR): -Home regimen lantus 24u QAM, humalog 1 [...] (which we do not do at [facility]) -D/c home, close f/u as outpatient Assessment & Plan (04/20/2019 6:14 PM ELECTROMAGNET CRANE OPERATOR): -Home regimen lantus 24u QAM, humalog 1 unit per 5 gram carb, SSI -Hospital regimen lantus 15units QAM, lispro 3 unit TID, Mid dose SSI -Her diet intake has been very unpredictable 2/2 gastroparesis, so I am intentionally underdosing mealtime insulin to avoid hypoglycemia. Assessment & Plan (08/24/2018 2:44 PM CDT): Diabetes is unchanged. cont long acting insulin until sees subcontract administrator ETD (Eustachian tube dysfunction), bilateral 8 07/19/2023 Diabetic gastroparesis ([facility]) 05/22/2017 03/31/2022 Overview (01/08/2020): Last Assessment & Plan: Longstanding gastroparesis per patient. Recently admitted at [facility] but left 2-3 days prior to admission here as she says she was unhappy with her care. Nausea recurred this am but no vomiting. Will resume IVF if she doesn't tolerate lunch. I reviewed some records from [facility] and found a gastric emptying study done in [place] which was normal, though this doesn't exclude gastroparesis I wonder if there is a functional component as well Regardless, cont supportive care with prn Zofran and added prn Compazine Assessment & Plan (08/04/2020 4:13 PM CDT): Chronic Cont regjonny martinez Has f/u with GI Assessment & Plan (06/07/2020 3:16 PM ELECTROMAGNET CRANE OPERATOR): Persistent Cont reglanmarbellafran, compazine Refer to new gi Assessment & Plan (03/29/2020 5:22 AM ELECTROMAGNET CRANE OPERATOR): Severely uncontrolled To f/u with Gi Recommended patient d/w GI about tube feedings She agrees to do so Assessment & Plan (03/20/2020 5:26 AM ELECTROMAGNET CRANE OPERATOR): Uncontrolled Cont treatment per GI To refer [...] Type Department Care Team Description 01/29/2025 Telephone [facility] Family Medicine at [address] [place] [address] Edgardo Aldridge MD 01/29/2025 Telephone [facility] [address] [place] [address] Outpatient Health 3rd Floor [address] [place] [address] Chyna Kay MA Scheduling Appointments 01/24/2025 Telephone [facility] Orthopedics and Sports Medicine [address] [place] [address] [address] [place] [address] Sussy Garcia PA req a cb about surg; FYI 01/15/2025 3:03 PM CDT - 01/26/2025 11:15 AM CDT Hospital Encounter [facility] [address] [place] [address] Odilon Correa MD PhD Anne-Marie, MD Jo Kennedy Jerry, MD PhD Juvencio, Devang Childers MD Nausea and vomiting, unspecified vomiting type (Primary Dx); History of gastrostomy; Abdominal pain; High anion gap Discharge Disposition: Discharge to home, home health skilled care 01/14/2025 3:48 PM CDT - 01/14/2025 5:25 PM CDT Emergency [facility] Emergency Department [address] [place] [address] Leo August DO Encounter for attention to gastrostomy (HCC) (Primary Dx) Discharge Disposition: Discharge to home or self care 01/12/2025 Telephone [facility] Transplant Kidney [address] [facility][1] [address] [phone] [place] [address] Mavis Barahona RN 01/09/2025 9:27 AM CDT Anesthesia Event [facility] [address] [place] [address] Jeferson Pascal MD 01/09/2025 Orders Only Radiology 1 [place] [address] Jamie Bell MD 01/08/2025 5:49 PM CDT - 01/12/2025 2:21 PM CDT Hospital Encounter [facility] [address] [place] [address] Viraj Olivo MD Heath, MD Anne-Marie Hernández, MD Paula Kennedy, Yareli Nelson MD Gastroparesis due to secondary diabetes (HCC) (Primary Dx); Diabetes mellitus with gastroparesis (HCC) Discharge Disposition: Discharge to home or self care 01/08/2025 10:30 AM CDT Office Visit [facility] Orthopedics and Sports Medicine [address] [place] [phone] Raul Clark DO Right ankle pain, unspecified chronicity (Primary Dx); Lisfranc dislocation, left, subsequent encounter; Arthritis of right midfoot; Acquired pes planovalgus of right foot; Arthrosis of right ankle 01/08/2025 10:10 AM CDT - 01/08/2025 11:59 PM CDT Hospital Encounter [facility] Diag Imaging [address] [place] [address] Right ankle pain, unspecified chronicity; Lisfranc dislocation, left, subsequent encounter Discharge Disposition: Discharge to home or self care 01/08/2025 Telephone [facility] Gastroenterology [address] [facility] [address] [place] [address] [place] [address] Yodit Ayers RN 01/04/2025 Documentation [facility] Medicine Gastroenterology [address] [facility] [address] [place] [address] [place] [address] Young Vasquez MD 01/02/2025 Telephone [facility] Radiology [address] [place] [address] Jaimie Foster RN 12/29/2024 Results Follow-Up [facility] Family Medicine at [address] [place] [address] Edgardo Aldridge MD SCAN - RADIOLOGY/IMAGING 12/28/2024 Documentation [facility] Medicine Gastroenterology [address] [facility] Medical Office Building [address] [place] [phone] Jaimie Manriquez, KADY Consult from Peg-[facility] 12/28/2024 Results Follow-Up [facility] Medicine Gastroenterology [address] [facility] [address]th [place] [address] [place] [address] Young Vasquez MD Surgical pathology 12/26/2024 8:46 AM CDT Anesthesia Event [facility] Digestive Disease [address] [place] [address] Dylan Frias MD Kandachar, Suman Subbaraya, MD 12/26/2024 8:45 AM CDT - 12/26/2024 9:45 AM CDT Surgery [facility] Digestive Disease [address] [place] [address] Young Vasquez MD COLON BIOPSY 12/26/2024 6:53 AM CDT - 12/26/2024 11:18 AM CDT Hospital Encounter [facility] Digestive Disease [place] [address] [facility] [address] [place] [address] Young Vasquez MD Perirectal fistula; Gastroparesis Discharge Disposition: Discharge to home or self care 12/26/2024 6:40 AM CDT Lab [facility] [address] [place] [address] Dialysis patient; Pre-procedure lab exam 12/26/2024 Results Follow-Up [facility] Medicine Gastroenterology [address] [facility] Advanced Medicine 12th [place] [address] [place] [address] Abdomen and Pelvis Enterography W Contrast 12/25/2024 11:57 AM CDT - 12/25/2024 11:59 PM CDT Hospital Encounter [facility] Radiology [place] [facility] [address] [place] [address] Perirectal fistula Discharge Disposition: Discharge to home or self care 12/22/2024 12:28 PM CDT - 12/22/2024 11:59 PM [place] [address] Closed displaced trimalleolar fracture of right ankle, initial encounter; Acute right ankle pain; Flat foot (pes planus) (acquired), right foot Discharge Disposition: Discharge to home or self care 12/22/2024 12:27 PM CDT - 12/22/2024 11:59 PM [place] [address] Lisfranc dislocation, right, initial encounter; Acute pain of right foot; Flat foot (pes planus) (acquired), right foot Discharge Disposition: Discharge to home or self care 12/22/2024 Orders Only [facility] Information Management [address] [place] [address] Edgardo Aldridge MD 12/20/2024 Telephone [facility] Transplant Kidney [address] [facility][1] [address] [phone] [place] [address] Julissa Urban Referral - Kidney Txp 12/19/2024 Telephone [facility] Specialty Services [address] [place] [address] Bri Anton RN GI PROCEDURE 7 DAY PRE CALL 12/07/2024 1:00 PM CDT Office Visit [facility] Orthopedics and Sports Medicine [address] [place] [address] [address] [place] [address] Raul Clark DO Acute pain of right foot (Primary Dx); Right ankle pain, unspecified chronicity; Lisfranc dislocation, right, initial encounter; Closed displaced trimalleolar fracture of right ankle, initial encounter; Acute right ankle pain; Flat foot (pes planus) (acquired), right foot 12/07/2024 12:51 PM CDT - 12/07/2024 11:59 PM CDT Hospital Encounter [facility] Diag Imaging [address] [place] [address] Right ankle pain, unspecified chronicity Discharge Disposition: Discharge to home or self care 12/05/2024 Telephone [facility] Transplant Kidney [address] [facility][1] [address] [phone] [place] [address] Julissa Urban Referral - Kidney Txp 11/28/2024 Telephone [facility] Nephrology at [address] [place] [address] Odilon Tellez MD 11/23/2024 Results Follow-Up [facility] Family Medicine at [address] [place] [address] Edgardo Aldridge MD SCAN - RADIOLOGY/IMAGING 11/22/2024 Results Follow-Up [facility] Family Medicine at [address] [place] [address] Edgardo Aldridge MD XR Ankle Right 3+ Vw 11/21/2024 Orders Only [facility] Family Medicine at [address] [place] [address] Edgardo Aldridge MD Crushing injury of right foot and ankle, subsequent encounter 11/16/2024 12:05 AM CDT - 11/16/2024 11:59 PM CDT Hospital Encounter [facility] [employer] [address] [facility] [place] [address] Discharge Disposition: Discharge to home or self care 11/16/2024 - 11/16/2024 11:59 PM CDT Hospital Encounter [facility] [employer] [address] [facility] [address] Discharge Disposition: Discharge to home or self care 11/16/2024 Orders Only [facility] Information Management [address] [place] [address] Edgardo Aldridge MD 11/14/2024 Telephone [facility] Medical [facility] Family Medicine at [address] [place] [address] Edgardo Aldridge MD 11/13/2024 Telephone [facility] Family Medicine at [address] [place] [address] Edgardo Aldridge MD 3rd No Show Letter sent to patient 11/13/2024 Results Follow-Up [facility] Family Medicine at [address] [place] [phone] Chest WO Contrast 11/09/2024 Telephone [facility] Family Medicine at [address] [place] [phone] Edgardo Aldridge MD Additional Services Or Orders 11/09/2024 Telephone [facility] Family Medicine at [address] [place] [phone] Edgardo Aldridge MD Medical Question/Miscellaneo us 11/08/2024 Orders Only [facility] Medicine Gastroenterology [address] [place] [address] [place] [address] Yareli Jones CMA Perirectal fistula (Primary Dx) 11/06/2024 9:00 AM CDT Office Visit [facility] Medicine Gastroenterology [address] [place] [address] [place] [address] Young Vasquez MD Gastroparesis (Primary Dx); Perirectal fistula; Diabetic gastroparesis (HCC); Diarrhea, unspecified type 11/03/2024 Telephone [facility] Family Medicine at [address] [place] [phone] Edgardo Aldridge MD Medical Question/Miscellaneo us 11/02/2024 Telephone [facility] Medicine at [address] [place] [phone] Edgardo Aldridge MD JACKELYN Questions 10/29/2024 10:16 AM CDT - 11/05/2024 10:34 AM CDT Hospital Encounter [address] [phone] Nathan Moore MD Griffey, Richard Thomas, MD [...] often do you attend chur ch or mu-ism services? Never 11/07/2024 Do you belong to any clubs o r organizations such as alevism groups, unions, fraternal or athletic groups, or [...] Date Recorded PHQ-2 Total Score 0 01/09/2025 [facility] - [...] any time in the past 12 m [facility], were you homeless or living in a [...] often do you attend chur ch or mu-ism services? Never 01/17/2025 Do you belong to any clubs o r organizations such as alevism groups, unions, fraternal or athletic groups, or [...] any time in the past 12 m [facility], were you homeless or living in a [facility] (including now)? No 01/17/2025 [facility] Utilities Answer Date Recorded In the past 12 months has th e [employer], gas, oil, or water [employer] threatened to shut off services in your home? No 01/17/2025 Personal Safety Answer Date Recorded Have you ever been in or are you currently in a harmful physical or emotional relationship or is someone making you feel afraid or unsafe? 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 Gender Identity Not on file Sexual [...] Urine Discontinued Medical Devices Implanted Type Area [place] Device Identifier Shelf Expiration Date Model / Serial / Lot Raquel Lyric Trialysis 13fr 24cm Dialysis Tray Catheter Sterile Short Term [id number] - [id number] Implanted:Qty: 1 on 10/27/2023 by Juan Long MD at [facility] Catheter Right: Groin Raquel Lyric [id number] 07/17/2024 [id number] / / [id number] [employer] Symmetry Vesolock Large Clip Internal 03305d - Sn/A - [id number] Implanted:Qty: 1 on 10/05/2022 by Andrei Chaves MD PhD at [facility] Clip N/A: Abdomen [employer] 04/19/2025 [id number] / N/A / Medtr[employer] Inc Enterra 35cm Lead Unipolar Kit Stimulator 4351-35 - [id number] - [id number] Implanted:Qty: 1 on 10/05/2022 by Andrei Chaves MD PhD at [facility] Stimulator N/A: Abdomen [employer] 06/04/2024 4351-35 / [id number] / [employer] Enterra 35cm Lead Unipolar Kit Stimulator 4351-35 - [id number] - [id number] Implanted:Qty: 1 on 10/05/2022 by Andrei Chaves MD PhD at [facility] Stimulator N/A: Abdomen [employer] 08/10/2024 4351-35 / [id number] 2V / Medtronic Inc Neurostimulator Implantable 2.4inx2.2in Enterra Ii Gastric 01423 - [id number] - [id number] Implanted:Qty: 1 on 10/05/2022 by Andrei Chaves MD PhD at [facility] Stimulator N/A: Abdomen [employer] 11/30/2022 [id number] / [id number] 2H / N/A [employer] Duraflow Embosafe 15.5fr 24cm Basic 2 Lumen Kit Catheter [id number] - [id number] Implanted:Qty: 1 on 11/03/2023 by Skip Huddleston MD at [facility] [employer] 01/16/2026 [id number] / / Procedures Procedure Name Priority Date/Time [...] PLACEMENT IP Routine 01/09/2025 10:32 AM CDT MO AN PROCEDURE PLACEHOLDER Routine 12/19 9:43 AM CDT MO AN ELECTIVE ENDOTRACHEAL AIRWAY Routine 01/09/2025 9:43 [...] AM CDT COLONOSCOPY 12/26/2024 9:16 AM CDT MO AN PROCEDURE PLACEHOLDER Routine 12/2024 9:02 AM CDT MO AN ELECTIVE ENDOTRACHEAL AIRWAY Routine 12/26/2024 9:02 [...] * POCT glucose (01/26/2025 10:36 AM CDT) [facility] Signature Glucose, POC 135 70 - 199 mg/dL Comment: Interpretive Data Glucose is assumed to be non-fasting. Fasting Glucose reference ranges are: 0 - 150 years: 70 mg/dL - 99 mg/dL Current interpretive data was last revised on 2013. POC Device Number [id number] 1 HERBER MARCANO Blood 01/26/2025 10:3 6 AM CDT 01/26/2025 10:36 AM CDT Devang Henning MD LAB POCT ORDERABLES - DEVICE Final Result Performing Organization Address [facility] Phone Number [facility] [address] [place] [address] * POCT glucose (01/26/2025 8:22 AM CDT) Glucose, POC 81 70 - 199 mg/dL Comment: Interpretive Data Glucose is assumed to be non-fasting. Fasting Glucose reference ranges are: 0 - 150 years: 70 mg/dL - 99 mg/dL Current interpretive data was last revised on 2013. POC Device Number [id number] 1 HERBER MARCANO Blood 01/26/2025 8:22 AM CDT 01/26/2025 8:22 AM CDT Devang Henning MD LAB POCT ORDERABLES - DEVICE Final Result Performing Organization Address [facility] Phone Number [facility] [address] [place] [address] * POCT glucose (01/26/2025 5:50 AM CDT) Glucose, POC 81 70 - 199 mg/dL Comment: Interpretive Data Glucose is assumed to be non-fasting. Fasting Glucose reference ranges are: 0 - 150 years: 70 mg/dL - 99 mg/dL Current interpretive data was last revised on 2013. POC Device Number [id number] 1 HERBER MARCANO Blood 01/26/2025 5:50 AM CDT 01/26/2025 5:50 AM CDT Devang Henning MD LAB POCT ORDERABLES - DEVICE Final Result Performing Organization Address [facility] de Phone Number HERBER JIMENEZCH [address] [facility]. [facility] [employer] [place], [place] [phone] * POCT glucose (01/26/2025 1:53 AM CDT) Glucose, POC 144 70 - 199 mg/dL Comment: Interpretive Data Glucose is assumed to be non-fasting. Fasting Glucose reference ranges are: 0 - 150 years: 70 mg/dL - 99 mg/dL Current interpretive data was last revised on 2013. POC Device Number [id number] 1 HERBER MARCANO Blood 01/26/2025 1:53 AM CDT 01/26/2025 1:53 AM CDT Devang Henning MD LAB POCT ORDERABLES - DEVICE Final Result Performing Organization Address [facility] de Phone Number HERBER JIMENEZCH [address] [facility]. [facility] [place] [employer] [address] * POCT glucose (01/25/2025 9:55 PM CDT) Glucose, POC 172 70 - 199 mg/dL Comment: Interpretive Data Glucose is assumed to be non-fasting. Fasting Glucose reference ranges are: 0 - 150 years: 70 mg/dL - 99 mg/dL Current interpretive data was last revised on 2013. POC Device Number [id number] 1 HERBER MARCANO Blood 01/25/2025 9:55 PM CDT 01/25/2025 9:55 PM CDT Devang Henning MD LAB POCT ORDERABLES - DEVICE Final Result Performing Organization Address [facility] de Phone Number HERBER BJWCH [address] [facility]. [facility] [place] [employer] [address] * POCT glucose (01/25/2025 5:42 PM CDT) Glucose, POC 110 70 - 199 mg/dL Comment: Interpretive Data Glucose is assumed to be non-fasting. Fasting Glucose reference ranges are: 0 - 150 years: 70 mg/dL - 99 mg/dL Current interpretive data was last revised on 2013. POC Device Number [id number] 1 HERBER MARCANO Blood 01/25/2025 5:42 PM CDT 01/25/2025 5:42 PM CDT Devang Henning MD LAB POCT ORDERABLES - DEVICE Final Result Performing Organization Address [facility] de Phone Number HERBER REINACH [address] [facility] [employer] [place], [place] [id number] * POCT glucose (01/25/2025 12:57 PM CDT) Glucose, POC 81 70 - 199 mg/dL Comment: Interpretive Data Glucose is assumed to be non-fasting. Fasting Glucose reference ranges are: 0 - 150 years: 70 mg/dL - 99 mg/dL Current interpretive data was last revised on 2013. POC Device Number [id number] 1 HERBER MARCANO Blood 01/25/2025 12:5 7 PM CDT 01/25/2025 12:57 PM CDT Devang Henning MD LAB POCT ORDERABLES - DEVICE Final Result Performing Organization Address [facility] de Phone Number HERBER JIMENEZWCH [address] [facility] [place] [address] * (ABNORMAL) POCT glucose (01/25/2025 12:39 PM CDT) Glucose, POC 64(L) 70 - 199 mg/dL Comment: Interpretive Data Glucose is assumed to be non-fasting. Fasting Glucose reference ranges are: 0 - 150 years: 70 mg/dL - 99 mg/dL Current interpretive data was last revised on 2013. POC Device Number [id number] HERBER MARCANO Glucose comment 1 RN/MD Notified HERBER MARCANO Blood 01/25/2025 12:3 9 PM CDT 01/25/2025 12:39 PM CDT Devang Henning MD LAB POCT ORDERABLES - DEVICE Final Result Performing Organization Address [facility] Phone Number HERBER JIMENEZCH [address] [place] [address] * POCT glucose (01/25/2025 10:43 AM CDT) Glucose, POC 84 70 - 199 mg/dL Comment: Interpretive Data Glucose is assumed to be non-fasting. Fasting Glucose reference ranges are: 0 - 150 years: 70 mg/dL - 99 mg/dL Current interpretive data was last revised on 2013. POC Device Number [id number] 3 HERBER MARCANO Blood 01/25/2025 10:4 3 AM CDT 01/25/2025 10:43 AM CDT Devang Henning MD LAB POCT ORDERABLES - DEVICE Final Result Performing Organization Address [facility] Phone Number [facility] [address] [place] [address] * POCT glucose (01/25/2025 9:08 AM CDT) Glucose, POC 90 70 - 199 mg/dL Comment: Interpretive Data Glucose is assumed to be non-fasting. Fasting Glucose reference ranges are: 0 - 150 years: 70 mg/dL - 99 mg/dL Current interpretive data was last revised on 2013. POC Device Number [id number] 3 HERBER MARCANO Blood 01/25/2025 9:08 AM CDT 01/25/2025 9:08 AM CDT Devang Henning MD LAB POCT ORDERABLES - DEVICE Final Result Performing Organization Address [facility]/ZIP Co de Phone Number [facility] [address] [place] [employer]. [facility] [employer] [place], [place] [phone] * POCT glucose (01/25/2025 7:51 AM CDT) Glucose, POC 99 70 - 199 mg/dL Comment: Interpretive Data Glucose is assumed to be non-fasting. Fasting Glucose reference ranges are: 0 - 150 years: 70 mg/dL - 99 mg/dL Current interpretive data was last revised on 2013. POC Device Number [id number] 3 HERBER MARCANO Blood 01/25/2025 7:51 AM CDT 01/25/2025 7:51 AM CDT Devang Henning MD LAB POCT ORDERABLES - DEVICE Final Result Performing Organization Address [facility] de Phone Number [facility] [address] [facility] [place] [address] * POCT glucose (01/25/2025 5:21 AM CDT) Glucose, POC 129 70 - 199 mg/dL Comment: Interpretive Data Glucose is assumed to be non-fasting. Fasting Glucose reference ranges are: 0 - 150 years: 70 mg/dL - 99 mg/dL Current interpretive data was last revised on 2013. POC Device Number [id number] 3 HERBER MARCANO Blood 01/25/2025 5:21 AM CDT 01/25/2025 5:21 AM CDT Devang Henning MD LAB POCT ORDERABLES - DEVICE Final Result Performing Organization Address [facility] de Phone Number HERBER JIMENEZCH [address] [facility]. [facility] [employer] [place], [place] [phone] * (ABNORMAL) eGFR (01/25/2025 5:18 AM CDT) [...] ORDERABLES Final Res ult Performing Organization Address [facility] Co de Phone Number [facility] [address] [place] [place] [address] * Magnesium (01/25/2025 5:18 AM CDT) Magnesium 2.4 1.4 - 2.5 mg/dL Comment: Reference Data. Reference values for Labor and Delivery patients: < or = 0.7 mg/dL to > or = 7.3 mg/dL Current reference data last reviewd on 01/16/2015. Blood 01/25/2025 5:18 AM CDT 01/25/2025 5:54 AM CDT Devang Henning MD LAB BLOOD ORDERABLES Final Result Performing Organization Address [facility] Co de Phone Number [facility] [address] [place] [place] [address] * (ABNORMAL) Renal function panel (01/25/2025 5:18 AM CDT) Sodium 137 135 - 145 mmol/L Potassium, pl 5.5(H) 3.3 - 4.9 mmol/L [facility] Chloride 98 97 - 110 mmol/L [facility] CO2 27 22 - 32 mmol/L CERNER BJW Anion gap 12 2 - 15 mmol/L CERNER W BUN 50(H) 6 - 25 mg/dL CERNER BJWCH Creatinine 5.75(H) 0.60 - 1.10 mg/dL CERNER BJWCH Glucose 112 70 - 199 mg/dL [facility] Comment: Interpretive Data Fasting glucose >/= 126 [...] 2022. Calcium 9.3 8.5 - 10.3 mg/dL [facility] Phosphorus, pl 4.5 2.3 - 4.5 mg/dL [facility] Albumin 4.0 3.5 - 5.0 g/dL [facility] Blood 01/25/2025 5:18 AM CDT 01/25/2025 5:54 AM CDT us Jeffrey Osorio MD PhD LAB BLOOD ORDERABLES Final Res ult [facility] [address] [facility] Department [place] [employer] [place] [address] * POCT glucose (01/25/2025 2:02 AM CDT) Glucose, POC 181 70 - 199 mg/dL Comment: Interpretive Data Glucose is assumed to be non-fasting. Fasting Glucose reference ranges are: 0 - 150 years: 70 mg/dL - 99 mg/dL Current interpretive data was last revised on 2013. POC Device Number [id number] 3 HERBER MARCANO Blood 01/25/2025 2:02 AM CDT 01/25/2025 2:02 AM CDT Devang Henning MD LAB POCT ORDERABLES - DEVICE Final Result Performing Organization Address [facility] de Phone Number HERBER JIMENEZWCH [address] [facility] [employer] [address] * (ABNORMAL) POCT glucose (01/24/2025 10:05 PM CDT) Glucose, POC 243(H) 70 - 199 mg/dL Comment: Interpretive Data Glucose is assumed to be non-fasting. Fasting Glucose reference ranges are: 0 - 150 years: 70 mg/dL - 99 mg/dL Current interpretive data was last revised on 2013. POC Device Number [id number] 3 HERBER MARCANO Blood 01/24/2025 10:0 5 PM CDT 01/24/2025 10:05 PM CDT Devang Henning MD LAB POCT ORDERABLES - DEVICE Final Result Performing Organization Address [facility] de Phone Number HERBER BJWCH [address] [facility] [place] [address] * POCT glucose (01/24/2025 6:13 PM CDT) Glucose, POC 134 70 - 199 mg/dL Comment: Interpretive Data Glucose is assumed to be non-fasting. Fasting Glucose reference ranges are: 0 - 150 years: 70 mg/dL - 99 mg/dL Current interpretive data was last revised on 2013. POC Device Number [id number] 3 BERLINNER BARBARAWCH Blood 01/24/2025 6:13 PM CDT 01/24/2025 6:13 PM CDT Devang Henning MD LAB POCT ORDERABLES - DEVICE Final Result Performing Organization Address [facility] Co de Phone Number HERBER REINA [address] [facility]. [facility] [place] [employer] [address] * POCT glucose (01/24/2025 12:59 PM CDT) Glucose, POC 110 70 - 199 mg/dL Comment: Interpretive Data Glucose is assumed to be non-fasting. Fasting Glucose reference ranges are: 0 - 150 years: 70 mg/dL - 99 mg/dL Current interpretive data was last revised on 2013. POC Device Number [id number] 3 HERBER MARCANO Blood 01/24/2025 12:5 9 PM CDT 01/24/2025 12:59 PM CDT Devang Henning MD LAB POCT ORDERABLES - DEVICE Final Result Performing Organization Address [facility] Co de Phone Number HERBER JIMENEZCH [address] [facility]. [facility] [place] [address] * POCT glucose (01/24/2025 9:32 AM CDT) Glucose, POC 111 70 - 199 mg/dL Comment: Interpretive Data Glucose is assumed to be non-fasting. Fasting Glucose reference ranges are: 0 - 150 years: 70 mg/dL - 99 mg/dL Current interpretive data was last revised on 2013. POC Device Number [id number] 3 HERBER MARCANO Blood 01/24/2025 9:32 AM CDT 01/24/2025 9:32 AM CDT Devang Henning MD LAB POCT ORDERABLES - DEVICE Final Result Performing Organization Address [facility] Co de Phone Number HERBER JIMENEZCH [address] [facility]. [facility] [place] [address] * (ABNORMAL) eGFR (01/24/2025 5:56 AM CDT) [...] BLOOD ORDERABLES Final Result Performing Organization Address [facility] de Phone Number HERBER BJWCH [address] [facility]. [place] [address] * Magnesium (01/24/2025 5:56 AM CDT) Magnesium 2.0 1.4 - 2.5 mg/dL Comment: Reference Data. Reference values for Labor and Delivery patients: < or = 0.7 mg/dL to > or = 7.3 mg/dL Current reference data last reviewd on 01/16/2015. Blood 01/24/2025 5:56 AM CDT 01/24/2025 6:25 AM CDT Devang Henning MD LAB BLOOD ORDERABLES Final Result HERBER MARCANO [address] [place] [employer] Department [place] [employer] [address] * (ABNORMAL) Renal function panel (01/24/2025 5:56 [...] BJWCH Albumin 3.7 3.5 - 5.0 g/dL [facility] Blood 01/24/2025 5:56 AM CDT 01/24/2025 6:25 AM CDT Devang Henning MD LAB BLOOD ORDERABLES Final Result Performing Organization Address [facility] Co de Phone Number HERBER JIMENEZWCH [address] [place] [facility]. [employer] [place] [employer] [place] [address] * POCT glucose (01/24/2025 5:43 AM CDT) Glucose, POC 115 70 - 199 mg/dL Comment: Interpretive Data Glucose is assumed to be non-fasting. Fasting Glucose reference ranges are: 0 - 150 years: 70 mg/dL - 99 mg/dL Current interpretive data was last revised on 2013. POC Device Number [id number] 3 HERBER MARCANO Blood 01/24/2025 5:43 AM CDT 01/24/2025 5:43 AM CDT Devang Henning MD LAB POCT ORDERABLES - DEVICE Final Result Performing Organization Address [facility] de Phone Number [facility] [address] [facility] [employer] [place], [place] [phone] * POCT glucose (01/24/2025 1:53 AM CDT) Glucose, POC 120 70 - 199 mg/dL Comment: Interpretive Data Glucose is assumed to be non-fasting. Fasting Glucose reference ranges are: 0 - 150 years: 70 mg/dL - 99 mg/dL Current interpretive data was last revised on 2013. POC Device Number [id number] 3 HERBER MARCANO Blood 01/24/2025 1:53 AM CDT 01/24/2025 1:53 AM CDT Devang Henning MD LAB POCT ORDERABLES - DEVICE Final Result Performing Organization Address [facility] de Phone Number HERBER BJWCH [address] [facility] [employer] [place], [place] [phone] * POCT glucose (01/23/2025 9:51 PM CDT) Glucose, POC 134 70 - 199 mg/dL Comment: Interpretive Data Glucose is assumed to be non-fasting. Fasting Glucose reference ranges are: 0 - 150 years: 70 mg/dL - 99 mg/dL Current interpretive data was last revised on 2013. POC Device Number [id number] 3 HERBER REINACH Blood 01/23/2025 9:51 PM CDT 01/23/2025 9:51 PM CDT Devang Henning MD LAB POCT ORDERABLES - DEVICE Final Result Performing Organization Address City/State/ZIP Co az Phone Number HERBER REINACH [address] [facility]. Department [place] [employer] [place] [address] * US Abdomen Complete (01/23/2025 9:18 PM [...] last revised on 2013. POC Device Number [id number] 3 [facility] Blood 01/23/2025 4:58 PM CDT 01/23/2025 4:58 PM CDT Devang Henning MD LAB POCT ORDERABLES - DEVICE Final Result Performing Organization Address [facility] Co de Phone Number HERBER BJWCH [address] [facility] [place] [address] * POCT glucose (01/23/2025 12:15 PM CDT) Glucose, POC 107 70 - 199 mg/dL Comment: Interpretive Data Glucose is assumed to be non-fasting. Fasting Glucose reference ranges are: 0 - 150 years: 70 mg/dL - 99 mg/dL Current interpretive data was last revised on 2013. POC Device Number [id number] 3 BERLINLULY BJWCH Blood 01/23/2025 12:1 5 PM CDT 01/23/2025 12:15 PM CDT Devang Henning MD LAB POCT ORDERABLES - DEVICE Final Result Performing Organization Address [facility] de Phone Number HERBER BJWCH [address] [facility] [place] [address] * (ABNORMAL) eGFR (01/23/2025 6:36 AM CDT) [...] PhD LAB BLOOD ORDERABLES Final Res ult [facility] [address] [facility]. [place] [address] * (ABNORMAL) Renal function panel (01/23/2025 6:36 [...] BJWCH Glucose 190 70 - 199 mg/dL [facility] Comment: Interpretive Data Fasting glucose >/= [...] ORDERABLES Final Res ult Performing Organization Address [facility] Co de Phone Number HERBER JIMENEZCH [address] [facility]. [facility] [place] [address] * (ABNORMAL) POCT glucose (01/23/2025 6:17 AM CDT) Glucose, POC 217(H) 70 - 199 mg/dL Comment: Interpretive Data Glucose is assumed to be non-fasting. Fasting Glucose reference ranges are: 0 - 150 years: 70 mg/dL - 99 mg/dL Current interpretive data was last revised on 2013. POC Device Number [id number] 1 HERBER MARCANO Blood 01/23/2025 6:17 AM CDT 01/23/2025 6:17 AM CDT Devang Henning MD LAB POCT ORDERABLES - DEVICE Final Result Performing Organization Address [facility] de Phone Number [facility] [address] [facility] [place] [address] * (ABNORMAL) POCT glucose (01/23/2025 2:08 AM CDT) Glucose, POC 229(H) 70 - 199 mg/dL Comment: Interpretive Data Glucose is assumed to be non-fasting. Fasting Glucose reference ranges are: 0 - 150 years: 70 mg/dL - 99 mg/dL Current interpretive data was last revised on 2013. POC Device Number [id number] 3 CERNER BARBARAWCH Blood 01/23/2025 2:08 AM CDT 01/23/2025 2:08 AM CDT us Jeffrey Osorio MD PhD LAB POCT ORDERABLES - DEVICE F inal Result Performing Organization Address [facility] Co de Phone Number HERBER [facility] [address] [facility]. [facility] [place] [address] * POCT glucose (01/22/2025 11:38 PM CDT) Glucose, POC 195 70 - 199 mg/dL Comment: Interpretive Data Glucose is assumed to be non-fasting. Fasting Glucose reference ranges are: 0 - 150 years: 70 mg/dL - 99 mg/dL Current interpretive data was last revised on 2013. POC Device Number [id number] 3 HERBER MARCANO Blood 01/22/2025 11:3 8 PM CDT 01/22/2025 11:38 PM CDT Jeffrey Osorio MD PhD LAB POCT ORDERABLES - DEVICE F inal Result Performing Organization Address [facility] Co de Phone Number [facility] [address] [address]. [facility] [place] [address] * POCT glucose (01/22/2025 8:14 PM CDT) Glucose, POC 125 70 - 199 mg/dL Comment: Interpretive Data Glucose is assumed to be non-fasting. Fasting Glucose reference ranges are: 0 - 150 years: 70 mg/dL - 99 mg/dL Current interpretive data was last revised on 2013. POC Device Number [id number] 3 HERBER MARCANO Blood 01/22/2025 8:14 PM CDT 01/22/2025 8:14 PM CDT Jeffrey Osorio MD PhD LAB POCT ORDERABLES - DEVICE F inal Result Performing Organization Address [facility]/ZIP Co de Phone Number [facility] [address] [employer] [facility] [place] [employer] [address] * POCT glucose (01/22/2025 5:25 PM CDT) Glucose, POC 112 70 - 199 mg/dL Comment: Interpretive Data Glucose is assumed to be non-fasting. Fasting Glucose reference ranges are: 0 - 150 years: 70 mg/dL - 99 mg/dL Current interpretive data was last revised on 2013. POC Device Number [id number] 4 HERBER REINACH Blood 01/22/2025 5:25 PM CDT 01/22/2025 5:25 PM CDT us Jeffrey Osorio MD PhD LAB POCT ORDERABLES - DEVICE F inal Result Performing Organization Address [facility] Phone Number [facility] [address] [facility] [employer] [place] [address] * POCT glucose (01/22/2025 2:24 PM CDT) Glucose, POC 129 70 - 199 mg/dL Comment: Interpretive Data Glucose is assumed to be non-fasting. Fasting Glucose reference ranges are: 0 - 150 years: 70 mg/dL - 99 mg/dL Current interpretive data was last revised on 2013. POC Device Number [id number] 4 HERBER MARCANO Blood 01/22/2025 2:24 PM CDT 01/22/2025 2:24 PM CDT us Jeffrey Osorio MD PhD LAB POCT ORDERABLES - DEVICE F inal Result Performing Organization Address [facility] de Phone Number [facility] [address] [facility] [employer] [place] [address] * POCT glucose (01/22/2025 10:26 AM CDT) Glucose, POC 133 70 - 199 mg/dL Comment: Interpretive Data Glucose is assumed to be non-fasting. Fasting Glucose reference ranges are: 0 - 150 years: 70 mg/dL - 99 mg/dL Current interpretive data was last revised on 2013. POC Device Number [id number] 3 BERLINNER BARBARAWCH Blood 01/22/2025 10:2 6 AM CDT 01/22/2025 10:26 AM CDT us Jeffrey Osorio MD PhD LAB POCT ORDERABLES - DEVICE F inal Result Performing Organization Address [facility] de Phone Number HERBER JIMENEZCH [address] [facility]. [facility] [place] [employer] [place] [address] * POCT glucose (01/22/2025 6:07 AM CDT) Glucose, POC 109 70 - 199 mg/dL Comment: Interpretive Data Glucose is assumed to be non-fasting. Fasting Glucose reference ranges are: 0 - 150 years: 70 mg/dL - 99 mg/dL Current interpretive data was last revised on 2013. POC Device Number [id number] 4 CERLULY JIMENEZWCH Blood 01/22/2025 6:07 AM CDT 01/22/2025 6:07 AM CDT Jeffrey Osorio MD PhD LAB POCT ORDERABLES - DEVICE F inal Result Performing Organization Address [facility] de Phone Number [facility] [address] [facility]. [facility] [place] [employer] [place] [address] * POCT glucose (01/22/2025 2:15 AM CDT) Glucose, POC 190 70 - 199 mg/dL Comment: Interpretive Data Glucose is assumed to be non-fasting. Fasting Glucose reference ranges are: 0 - 150 years: 70 mg/dL - 99 mg/dL Current interpretive data was last revised on 2013. POC Device Number [id number] 3 HERBER JIMENEZWCH Blood 01/22/2025 2:15 AM CDT 01/22/2025 2:15 AM CDT us Jeffrey Osorio MD PhD LAB POCT ORDERABLES - DEVICE F inal Result Performing Organization Address [facility] Co de Phone Number HERBER BJWCH [address] [facility]. [facility] [place] [employer] [place] [address] * (ABNORMAL) POCT glucose (01/21/2025 10:28 PM CDT) Glucose, POC 340(H) 70 - 199 mg/dL Comment: Interpretive Data Glucose is assumed to be non-fasting. Fasting Glucose reference ranges are: 0 - 150 years: 70 mg/dL - 99 mg/dL Current interpretive data was last revised on 2013. POC Device Number [id number] 4 HERBER MARCANO Blood 01/21/2025 10:2 8 PM CDT 01/21/2025 10:28 PM CDT Jeffrey Osorio MD PhD LAB POCT ORDERABLES - DEVICE F inal Result Performing Organization Address [facility] de Phone Number [facility] [address] [facility] [employer] [place], [place] [id number] * POCT glucose (01/21/2025 5:23 PM CDT) Glucose, POC 195 70 - 199 mg/dL Comment: Interpretive Data Glucose is assumed to be non-fasting. Fasting Glucose reference ranges are: 0 - 150 years: 70 mg/dL - 99 mg/dL Current interpretive data was last revised on 2013. POC Device Number [id number] 4 HERBER MARCANO Blood 01/21/2025 5:23 PM CDT 01/21/2025 5:23 PM CDT Jeffrey Osorio MD PhD LAB POCT ORDERABLES - DEVICE F inal Result Performing Organization Address [facility] de Phone Number [facility] [address] [employer] [employer] [place], [place] [address] * POCT glucose (01/21/2025 12:29 PM CDT) Glucose, POC 194 70 - 199 mg/dL Comment: Interpretive Data Glucose is assumed to be non-fasting. Fasting Glucose reference ranges are: 0 - 150 years: 70 mg/dL - 99 mg/dL Current interpretive data was last revised on 2013. POC Device Number [id number] 3 HERBER MARCANO Blood 01/21/2025 12:2 9 PM CDT 01/21/2025 12:29 PM CDT us Jeffrey Osorio MD PhD LAB POCT ORDERABLES - DEVICE F inal Result Performing Organization Address [facility] Phone Number HERBER JIMENEZCH [address] [place] [address] * POCT glucose (01/21/2025 8:02 AM CDT) Glucose, POC 160 70 - 199 mg/dL Comment: Interpretive Data Glucose is assumed to be non-fasting. Fasting Glucose reference ranges are: 0 - 150 years: 70 mg/dL - 99 mg/dL Current interpretive data was last revised on 2013. POC Device Number [id number] 3 HERBER MARCANO Blood 01/21/2025 8:02 AM CDT 01/21/2025 8:02 AM CDT us Jeffrey Osorio MD PhD LAB POCT ORDERABLES - DEVICE F inal Result Performing Organization Address [facility] Phone Number HERBER JIMENEZCH [address] [place] [address] * POCT glucose (01/21/2025 6:05 AM CDT) Glucose, POC 184 70 - 199 mg/dL Comment: Interpretive Data Glucose is assumed to be non-fasting. Fasting Glucose reference ranges are: 0 - 150 years: 70 mg/dL - 99 mg/dL Current interpretive data was last revised on 2013. POC Device Number [id number] 3 HERBER MARCANO Blood 01/21/2025 6:05 AM CDT 01/21/2025 6:05 AM CDT us Jeffrey Osorio MD PhD LAB POCT ORDERABLES - DEVICE F inal Result Performing Organization Address [facility]/ZIP Co de Phone Number HERBER JIMENEZWCH [address] [employer] [employer] [place], [place] [id number] * POCT glucose (01/21/2025 1:50 AM CDT) Glucose, POC 78 70 - 199 mg/dL Comment: Interpretive Data Glucose is assumed to be non-fasting. Fasting Glucose reference ranges are: 0 - 150 years: 70 mg/dL - 99 mg/dL Current interpretive data was last revised on 2013. POC Device Number [id number] 3 HERBER MARCANO Blood 01/21/2025 1:50 AM CDT 01/21/2025 1:50 AM CDT us Jeffrey Osorio MD PhD LAB POCT ORDERABLES - DEVICE F inal Result Performing Organization Address [facility] de Phone Number [facility] [address] [facility]. [facility] [employer] [place], [place] [phone] * POCT glucose (01/20/2025 9:49 PM CDT) Glucose, POC 138 70 - 199 mg/dL Comment: Interpretive Data Glucose is assumed to be non-fasting. Fasting Glucose reference ranges are: 0 - 150 years: 70 mg/dL - 99 mg/dL Current interpretive data was last revised on 2013. POC Device Number [id number] 3 HERBER MARCANO Blood 01/20/2025 9:49 PM CDT 01/20/2025 9:49 PM CDT us Jeffrey Osorio MD PhD LAB POCT ORDERABLES - DEVICE F inal Result Performing Organization Address [facility] Co de Phone Number [facility] [address] [facility] [employer] [place], [place] [phone] * POCT glucose (01/20/2025 4:28 PM CDT) Glucose, POC 129 70 - 199 mg/dL Comment: Interpretive Data Glucose is assumed to be non-fasting. Fasting Glucose reference ranges are: 0 - 150 years: 70 mg/dL - 99 mg/dL Current interpretive data was last revised on 2013. POC Device Number [id number] 3 CERLULY REINASolar Flow-Through Blood 01/20/2025 4:28 PM CDT 01/20/2025 4:28 PM CDT Jeffrey Osorio MD PhD LAB POCT ORDERABLES - DEVICE F inal Result Performing Organization Address [facility] de Phone Number [facility] [address] [facility] [employer] [place], [place] [phone] * POCT glucose (01/20/2025 1:07 PM CDT) [facility] Glucose, POC 102 70 - 199 mg/dL Comment: Interpretive Data Glucose is assumed to be non-fasting. Fasting Glucose reference ranges are: 0 - 150 years: 70 mg/dL - 99 mg/dL Current interpretive data was last revised on 2013. POC Device Number [id number] 3 BERLINNER BARBARAWCH Blood 01/20/2025 1:07 PM CDT 01/20/2025 1:07 PM CDT us Jeffrey Osorio MD PhD LAB POCT ORDERABLES - DEVICE F inal Result Performing Organization Address [facility] de Phone Number [facility] [address] [address] [place] [address] * (ABNORMAL) eGFR (01/20/2025 10:23 AM CDT) [...] LAB BLOOD ORDERABLES Final Res ult [facility] [address] [facility]. [place] [address] * Differential, auto (01/20/2025 10:23 AM CDT) [...] on 2017. Lymphocyte pct 25.2 % [facility] Comment: Interpretive Data Percent cell count reference ranges are not reported, since discordance with absolute values may lead to misinterpretation of CBC data. Current Interpretive Data was last revised on 2017. Monocyte pct 7.4 % [facility] Comment: Interpretive Data Percent cell count reference ranges are not reported, since discordance with absolute values may lead to misinterpretation of CBC data. Current Interpretive Data was last revised on 2017. Eosinophil pct 2.6 % CERNER [facility] Comment: Interpretive Data Percent cell count reference ranges are not reported, since discordance with absolute values may lead to misinterpretation of CBC data. Current Interpretive Data was last revised on 2017. Basophil pct 0.0 % HERBER [facility] Comment: Interpretive Data Percent cell count reference ranges are not reported, since discordance with absolute values may lead to misinterpretation of CBC data. Current Interpretive Data was last revised on 2017. Blood 01/20/2025 10:2 3 AM CDT 01/20/2025 10:26 AM CDT us Jeffrey Osorio MD PhD LAB BLOOD ORDERABLES Final Res ult [facility] [address] [facility]. Department of Laboratories [place], [place] [phone] * (ABNORMAL) CBC with auto differential (01/20/2025 10:23 AM CDT) WBC 4.61 3.80 - 9.90 K/cumm Hgb 8.2(L) 11.9 - 15.5 g/dL [facility] Hct 26.9(L) 35.6 - 45.5 % [facility] Plt 309 150 - 400 K/cumm [facility] MPV 10.8 9.1 - 12.[address] [facility] RBC 2.89(L) 3.90 - 5.20 M/cumm [facility] MCV 93.1 81.3 - 96.[address] [facility] MCH 28.4 27.1 - 33.[address] [facility] MCHC 30.5(L) 32.3 - 35.7 g/dL CERNER [facility] RDW CV 15.2(H) 11.1 - 14.9 % CERNER [facility] RDW SD 51.6(H) 35.7 - 48.1 fL [facility] NRBC abs 0.00 0.00 - 0.01 K/cumm [facility] Blood 01/20/2025 10:2 3 AM CDT 01/20/2025 10:26 AM CDT us Jeffrey Osorio MD PhD LAB BLOOD ORDERABLES Final Res ult [facility] [address] [facility]. Department [place] [employer] [place] [address] * (ABNORMAL) Renal function panel (01/20/2025 10:23 AM CDT) Sodium 137 135 - 145 mmol/L Potassium, pl 5.0(H) 3.3 - 4.9 mmol/L CERNER W Chloride 100 97 - 110 mmol/L [facility] CO2 28 22 - 32 mmol/L CERNER W[facility] Anion gap 9 2 - 15 mmol/L [facility] BUN 42(H) 6 - 25 mg/dL [facility] Creatinine 4.95(H) 0.60 - 1.10 mg/dL CERNER [facility] Glucose 110 70 - 199 mg/dL [facility] Comment: Interpretive Data Fasting glucose >/= [...] Phosphorus, pl 3.7 2.3 - 4.5 mg/dL [facility] Albumin 3.6 3.5 - 5.0 g/dL HERBER MARCANO Blood 01/20/2025 10:2 3 AM CDT 01/20/2025 10:26 AM CDT us Jeffrey Osorio MD PhD LAB BLOOD ORDERABLES Final Res ult Performing Organization Address [facility] de Phone Number [facility] [address] [facility] [employer] [place] [address] * POCT glucose (01/20/2025 9:51 AM CDT) Glucose, POC 111 70 - 199 mg/dL Comment: Interpretive Data Glucose is assumed to be non-fasting. Fasting Glucose reference ranges are: 0 - 150 years: 70 mg/dL - 99 mg/dL Current interpretive data was last revised on 2013. POC Device Number [id number] 3 HERBER MARCANO Blood 01/20/2025 9:51 AM CDT 01/20/2025 9:51 AM CDT us Jeffrey Osorio MD PhD LAB POCT ORDERABLES - DEVICE F inal Result Performing Organization Address [facility] Phone Number [facility] [address] [facility] [employer] [place] [address] * POCT glucose (01/20/2025 8:45 AM CDT) Glucose, POC 115 70 - 199 mg/dL Comment: Interpretive Data Glucose is assumed to be non-fasting. Fasting Glucose reference ranges are: 0 - 150 years: 70 mg/dL - 99 mg/dL Current interpretive data was last revised on 2013. POC Device Number [id number] 3 HERBER MARCANO Blood 01/20/2025 8:45 AM CDT 01/20/2025 8:45 AM CDT us Jeffrey Osorio MD PhD LAB POCT ORDERABLES - DEVICE F inal Result Performing Organization Address [facility] de Phone Number HERBER JIMENEZCH [address] [facility]. [facility] [place] [employer] [place] [address] * (ABNORMAL) POCT glucose (01/20/2025 8:02 AM CDT) Glucose, POC 67(L) 70 - 199 mg/dL Comment: Interpretive Data Glucose is assumed to be non-fasting. Fasting Glucose reference ranges are: 0 - 150 years: 70 mg/dL - 99 mg/dL Current interpretive data was last revised on 2013. POC Device Number [id number] 3 HERBER MARCANO Blood 01/20/2025 8:02 AM CDT 01/20/2025 8:02 AM CDT Jeffrey Osorio MD PhD LAB POCT ORDERABLES - DEVICE F inal Result Performing Organization Address [facility] de Phone Number [facility] [address] [facility]. [facility] [place] [employer] [place] [address] * POCT glucose (01/20/2025 5:49 AM CDT) Glucose, POC 122 70 - 199 mg/dL Comment: Interpretive Data Glucose is assumed to be non-fasting. Fasting Glucose reference ranges are: 0 - 150 years: 70 mg/dL - 99 mg/dL Current interpretive data was last revised on 2013. POC Device Number [id number] 3 HERBER MARCANO Blood 01/20/2025 5:49 AM CDT 01/20/2025 5:49 AM CDT us Jeffrey Osorio MD PhD LAB POCT ORDERABLES - DEVICE F inal Result Performing Organization Address [facility] de Phone Number [facility] [address] [facility]. [facility] [place] [employer] [place] [address] * POCT glucose (01/20/2025 1:57 AM CDT) Glucose, POC 127 70 - 199 mg/dL Comment: Interpretive Data Glucose is assumed to be non-fasting. Fasting Glucose reference ranges are: 0 - 150 years: 70 mg/dL - 99 mg/dL Current interpretive data was last revised on 2013. POC Device Number [id number] 4 HERBER MARCANO Blood 01/20/2025 1:57 AM CDT 01/20/2025 1:57 AM CDT us Jeffrey Osorio MD PhD LAB POCT ORDERABLES - DEVICE F inal Result Performing Organization Address [facility] de Phone Number HERBER [facility] [address] meets. [facility] [place] [employer] [place] [address] * (ABNORMAL) POCT glucose (01/19/2025 10:01 PM CDT) Glucose, POC 243(H) 70 - 199 mg/dL Comment: Interpretive Data Glucose is assumed to be non-fasting. Fasting Glucose reference ranges are: 0 - 150 years: 70 mg/dL - 99 mg/dL Current interpretive data was last revised on 2013. POC Device Number [id number] HERBER JIMENEZWCH Glucose comment 1 RN/MD Notified HERBER MARCANO Blood 01/19/2025 10:0 1 PM CDT 01/19/2025 10:01 PM CDT us Jeffrey Osorio MD PhD LAB POCT ORDERABLES - DEVICE F inal Result Performing Organization Address [facility] de Phone Number HERBER [facility] [phone] meets. [facility] [place] [address] * POCT glucose (01/19/2025 6:01 PM CDT) Glucose, POC 98 70 - 199 mg/dL Comment: Interpretive Data Glucose is assumed to be non-fasting. Fasting Glucose reference ranges are: 0 - 150 years: 70 mg/dL - 99 mg/dL Current interpretive data was last revised on 2013. POC Device Number [id number] 4 HERBER MARCANO Blood 01/19/2025 6:01 PM CDT 01/19/2025 6:01 PM CDT us Jeffrey Osorio MD PhD LAB POCT ORDERABLES - DEVICE F inal Result Performing Organization Address [facility] de Phone Number [facility] [address] [facility] [place] [address] * POCT glucose (01/19/2025 4:18 PM CDT) Glucose, POC 75 70 - 199 mg/dL Comment: Interpretive Data Glucose is assumed to be non-fasting. Fasting Glucose reference ranges are: 0 - 150 years: 70 mg/dL - 99 mg/dL Current interpretive data was last revised on 2013. POC Device Number [id number] 4 HERBER MARCANO Blood 01/19/2025 4:18 PM CDT 01/19/2025 4:18 PM CDT us Jeffrey Osorio MD PhD LAB POCT ORDERABLES - DEVICE F inal Result Performing Organization Address [facility] Phone Number [facility] [address] [place] [address] * POCT glucose (01/19/2025 11:51 AM CDT) Glucose, POC 114 70 - 199 mg/dL Comment: Interpretive Data Glucose is assumed to be non-fasting. Fasting Glucose reference ranges are: 0 - 150 years: 70 mg/dL - 99 mg/dL Current interpretive data was last revised on 2013. POC Device Number [id number] 4 HERBER MARCANO Blood 01/19/2025 11:5 1 AM CDT 01/19/2025 11:51 AM CDT us Jeffrey Osorio MD PhD LAB POCT ORDERABLES - DEVICE F inal Result Performing Organization Address [facility]/ZIP Co de Phone Number HERBER REINACH [address] [facility]. [facility] [place] [employer] [address] * POCT glucose (01/19/2025 10:04 AM CDT) Glucose, POC 137 70 - 199 mg/dL Comment: Interpretive Data Glucose is assumed to be non-fasting. Fasting Glucose reference ranges are: 0 - 150 years: 70 mg/dL - 99 mg/dL Current interpretive data was last revised on 2013. POC Device Number [id number] 4 HERBER JIMENEZWCYDNEY Blood 01/19/2025 10:0 4 AM CDT 01/19/2025 10:04 AM CDT us Jeffrey Osorio MD PhD LAB POCT ORDERABLES - DEVICE F inal Result Performing Organization Address [facility] Co de Phone Number [facility] [address] [facility]. [facility] [place] [employer] [place] [address] * POCT glucose (01/19/2025 6:33 AM CDT) Glucose, POC 71 70 - 199 mg/dL Comment: Interpretive Data Glucose is assumed to be non-fasting. Fasting Glucose reference ranges are: 0 - 150 years: 70 mg/dL - 99 mg/dL Current interpretive data was last revised on 2013. POC Device Number [id number] 3 HERBER MARCANO Blood 01/19/2025 6:33 AM CDT 01/19/2025 6:33 AM CDT us Jeffrey Osorio MD PhD LAB POCT ORDERABLES - DEVICE F inal Result Performing Organization Address [facility] Co de Phone Number [facility] BJW[facility] [address] [facility]. [facility] [place] [employer] [address] * POCT glucose (01/19/2025 2:13 AM CDT) Glucose, POC 104 70 - 199 mg/dL Comment: Interpretive Data Glucose is assumed to be non-fasting. Fasting Glucose reference ranges are: 0 - 150 years: 70 mg/dL - 99 mg/dL Current interpretive data was last revised on 2013. POC Device Number [id number] 3 HERBER REINACH Blood 01/19/2025 2:13 AM CDT 01/19/2025 2:13 AM CDT Jeffrey Osorio MD PhD LAB POCT ORDERABLES - DEVICE F inal Result Performing Organization Address [facility] de Phone Number [facility] [address] [facility] [place] [address] * POCT glucose (01/18/2025 9:50 PM CDT) Glucose, POC 97 70 - 199 mg/dL Comment: Interpretive Data Glucose is assumed to be non-fasting. Fasting Glucose reference ranges are: 0 - 150 years: 70 mg/dL - 99 mg/dL Current interpretive data was last revised on 2013. POC Device Number [id number] 3 HERBER JIMENEZWCH Blood 01/18/2025 9:50 PM CDT 01/18/2025 9:50 PM CDT us Jeffrey Osorio MD PhD LAB POCT ORDERABLES - DEVICE F inal Result Performing Organization Address [facility] de Phone Number [facility] [address] [facility] [place] [address] * POCT glucose (01/18/2025 5:59 PM CDT) Glucose, POC 171 70 - 199 mg/dL Comment: Interpretive Data Glucose is assumed to be non-fasting. Fasting Glucose reference ranges are: 0 - 150 years: 70 mg/dL - 99 mg/dL Current interpretive data was last revised on 2013. POC Device Number [id number] 1 CERNER BARBARAWCH Blood 01/18/2025 5:59 PM CDT 01/18/2025 5:59 PM CDT us Jeffrey Osorio MD PhD LAB POCT ORDERABLES - DEVICE F inal Result Performing Organization Address [facility] Co de Phone Number HERBER REINA [address] [facility]. [facility] [place] [employer] [address] * POCT glucose (01/18/2025 12:15 PM CDT) Glucose, POC 143 70 - 199 mg/dL Comment: Interpretive Data Glucose is assumed to be non-fasting. Fasting Glucose reference ranges are: 0 - 150 years: 70 mg/dL - 99 mg/dL Current interpretive data was last revised on 2013. POC Device Number [id number] 3 HERBER MARCANO Blood 01/18/2025 12:1 5 PM CDT 01/18/2025 12:15 PM CDT Jeffrey Osorio MD PhD LAB POCT ORDERABLES - DEVICE F inal Result Performing Organization Address [facility] de Phone Number HERBER JIMENEZCH [address] [facility]. [facility] [place] [employer] [address] * POCT glucose (01/18/2025 6:08 AM CDT) Glucose, POC 92 70 - 199 mg/dL Comment: Interpretive Data Glucose is assumed to be non-fasting. Fasting Glucose reference ranges are: 0 - 150 years: 70 mg/dL - 99 mg/dL Current interpretive data was last revised on 2013. POC Device Number [id number] 1 HERBER MARCANO Blood 01/18/2025 6:08 AM CDT 01/18/2025 6:08 AM CDT us Jeffrey Osorio MD PhD LAB POCT ORDERABLES - DEVICE F inal Result Performing Organization Address [facility] Co de Phone Number HERBER BJ[facility] [address] [facility] [place] [address] * POCT glucose (01/18/2025 2:09 AM CDT) Glucose, POC 107 70 - 199 mg/dL Comment: Interpretive Data Glucose is assumed to be non-fasting. Fasting Glucose reference ranges are: 0 - 150 years: 70 mg/dL - 99 mg/dL Current interpretive data was last revised on 2013. POC Device Number [id number] 4 HERBER MARCANO Blood 01/18/2025 2:09 AM CDT 01/18/2025 2:09 AM CDT Jeffrey Osorio MD PhD LAB POCT ORDERABLES - DEVICE F inal Result Performing Organization Address [facility] de Phone Number [facility] [address] [facility] [place] [employer] [address] * POCT glucose (01/17/2025 7:36 PM CDT) Glucose, POC 131 70 - 199 mg/dL Comment: Interpretive Data Glucose is assumed to be non-fasting. Fasting Glucose reference ranges are: 0 - 150 years: 70 mg/dL - 99 mg/dL Current interpretive data was last revised on 2013. POC Device Number [id number] 4 HERBER MARCANO Blood 01/17/2025 7:36 PM CDT 01/17/2025 7:36 PM CDT Jeffrey Osorio MD PhD LAB POCT ORDERABLES - DEVICE F inal Result Performing Organization Address [facility] de Phone Number [facility] BJWCH [address] [facility] [employer] [address] * POCT glucose (01/17/2025 5:40 PM CDT) Glucose, POC 161 70 - 199 mg/dL Comment: Interpretive Data Glucose is assumed to be non-fasting. Fasting Glucose reference ranges are: 0 - 150 years: 70 mg/dL - 99 mg/dL Current interpretive data was last revised on 2013. POC Device Number [id number] 3 BERLINNER BARBARAWCH Blood 01/17/2025 5:40 PM CDT 01/17/2025 5:40 PM CDT us Jeffrey Osorio MD PhD LAB POCT ORDERABLES - DEVICE F inal Result Performing Organization Address [facility] de Phone Number [facility] [address] [place] [address] * POCT glucose (01/17/2025 12:02 PM CDT) Glucose, POC 149 70 - 199 mg/dL Comment: Interpretive Data Glucose is assumed to be non-fasting. Fasting Glucose reference ranges are: 0 - 150 years: 70 mg/dL - 99 mg/dL Current interpretive data was last revised on 2013. POC Device Number [id number] 4 BERLINNER BARBARAWCH Blood 01/17/2025 12:0 2 PM CDT 01/17/2025 12:02 PM CDT us Jeffrey Osorio MD PhD LAB POCT ORDERABLES - DEVICE F inal Result Performing Organization Address [facility] Phone Number [facility] [address] [place] [address] * POCT glucose (01/17/2025 8:19 AM CDT) Glucose, POC 198 70 - 199 mg/dL Comment: Interpretive Data Glucose is assumed to be non-fasting. Fasting Glucose reference ranges are: 0 - 150 years: 70 mg/dL - 99 mg/dL Current interpretive data was last revised on 2013. POC Device Number [id number] 1 CERNER BARBARAWCH Blood 01/17/2025 8:19 AM CDT 01/17/2025 8:19 AM CDT us Jeffrey Osorio MD PhD LAB POCT ORDERABLES - DEVICE F inal Result Performing Organization Address [facility] de Phone Number HERBER JIMENEZCH [address] [facility] [employer] [place], [place] [id number] * POCT glucose (01/17/2025 3:39 AM CDT) Glucose, POC 98 70 - 199 mg/dL Comment: Interpretive Data Glucose is assumed to be non-fasting. Fasting Glucose reference ranges are: 0 - 150 years: 70 mg/dL - 99 mg/dL Current interpretive data was last revised on 2013. POC Device Number [id number] 1 HERBER MARCANO Blood 01/17/2025 3:39 AM CDT 01/17/2025 3:39 AM CDT Jeffrey Osorio MD PhD LAB POCT ORDERABLES - DEVICE F inal Result Performing Organization Address [facility] de Phone Number HERBER JIMENEZCH [address] [facility]. [facility] [place] [employer] [place] [address] * POCT glucose (01/17/2025 1:03 AM CDT) Glucose, POC 101 70 - 199 mg/dL Comment: Interpretive Data Glucose is assumed to be non-fasting. Fasting Glucose reference ranges are: 0 - 150 years: 70 mg/dL - 99 mg/dL Current interpretive data was last revised on 2013. POC Device Number [id number] 4 HERBER JIMENEZWCYDNEY Blood 01/17/2025 1:03 AM CDT 01/17/2025 1:03 AM CDT us Jeffrey Osorio MD PhD LAB POCT ORDERABLES - DEVICE F inal Result Performing Organization Address [facility] de Phone Number HERBER BJWCH [address] [facility]. [facility] [place] [employer] [place] [address] * POCT glucose (01/16/2025 11:58 PM CDT) Glucose, POC 110 70 - 199 mg/dL Comment: Interpretive Data Glucose is assumed to be non-fasting. Fasting Glucose reference ranges are: 0 - 150 years: 70 mg/dL - 99 mg/dL Current interpretive data was last revised on 2013. POC Device Number [id number] 4 HERBER REINACH Blood 01/16/2025 11:5 8 PM CDT 01/16/2025 11:58 PM CDT Jeffrey Osorio MD PhD LAB POCT ORDERABLES - DEVICE F inal Result Performing Organization Address [facility] de Phone Number [facility] [address] [employer] [employer] [place], [place] [id number] * POCT glucose (01/16/2025 11:40 PM CDT) Glucose, POC 98 70 - 199 mg/dL Comment: Interpretive Data Glucose is assumed to be non-fasting. Fasting Glucose reference ranges are: 0 - 150 years: 70 mg/dL - 99 mg/dL Current interpretive data was last revised on 2013. POC Device Number [id number] 4 HERBER JIMENEZWCH Blood 01/16/2025 11:4 0 PM CDT 01/16/2025 11:40 PM CDT Jeffrey Osorio MD PhD LAB POCT ORDERABLES - DEVICE F inal Result Performing Organization Address [facility] de Phone Number [facility] [address] [employer] [place] [address] * POCT glucose (01/16/2025 11:23 PM CDT) Glucose, POC 93 70 - 199 mg/dL Comment: Interpretive Data Glucose is assumed to be non-fasting. Fasting Glucose reference ranges are: 0 - 150 years: 70 mg/dL - 99 mg/dL Current interpretive data was last revised on 2013. POC Device Number [id number] 4 BERLINNER BARBARAWCH Blood 01/16/2025 11:2 3 PM CDT 01/16/2025 11:23 PM CDT us Jeffrey Osorio MD PhD LAB POCT ORDERABLES - DEVICE F inal Result Performing Organization Address [facility] Co de Phone Number [facility] [address] [facility] [place] [employer] [place] [address] * (ABNORMAL) POCT glucose (01/16/2025 11:04 PM CDT) Glucose, POC 57(L) 70 - 199 mg/dL Comment: Interpretive Data Glucose is assumed to be non-fasting. Fasting Glucose reference ranges are: 0 - 150 years: 70 mg/dL - 99 mg/dL Current interpretive data was last revised on 2013. POC Device Number [id number] 4 BERLINNER BARBARAWCH Blood 01/16/2025 11:0 4 PM CDT 01/16/2025 11:04 PM CDT us Jeffrey Osorio MD PhD LAB POCT ORDERABLES - DEVICE F inal Result Performing Organization Address [facility] de Phone Number HERBER [facility] [address] [facility] [place] [address] * (ABNORMAL) POCT glucose (01/16/2025 10:46 PM CDT) Glucose, POC 58(L) 70 - 199 mg/dL Comment: Interpretive Data Glucose is assumed to be non-fasting. Fasting Glucose reference ranges are: 0 - 150 years: 70 mg/dL - 99 mg/dL Current interpretive data was last revised on 2013. POC Device Number [id number] 4 HERBER JIMENEZWCH Blood 01/16/2025 10:4 6 PM CDT 01/16/2025 10:46 PM CDT us Jeffrey Osorio MD PhD LAB POCT ORDERABLES - DEVICE F inal Result Performing Organization Address [facility] Co de Phone Number HERBER [facility] [address] [facility]. [facility] [place] [employer] [place] [address] * POCT glucose (01/16/2025 7:48 PM CDT) Glucose, POC 186 70 - 199 mg/dL Comment: Interpretive Data Glucose is assumed to be non-fasting. Fasting Glucose reference ranges are: 0 - 150 years: 70 mg/dL - 99 mg/dL Current interpretive data was last revised on 2013. POC Device Number [id number] 4 HERBER REINA Blood 01/16/2025 7:48 PM CDT 01/16/2025 7:48 PM CDT Jeffrey Osorio MD PhD LAB POCT ORDERABLES - DEVICE F inal Result Performing Organization Address [facility] Co de Phone Number [facility] [address] [facility]. [facility] [place] [employer] [address] * POCT glucose (01/16/2025 4:32 PM CDT) Glucose, POC 134 70 - 199 mg/dL Comment: Interpretive Data Glucose is assumed to be non-fasting. Fasting Glucose reference ranges are: 0 - 150 years: 70 mg/dL - 99 mg/dL Current interpretive data was last revised on 2013. POC Device Number [id number] [address] [facility] Blood 01/16/2025 4:32 PM CDT 01/16/2025 4:32 PM CDT Jeffrey Osorio MD PhD LAB POCT ORDERABLES - DEVICE F inal Result Performing Organization Address [facility]/ZIP Co de Phone Number [facility] [address] [facility] [place] [address] * POCT glucose (01/16/2025 12:40 PM CDT) Glucose, POC 195 70 - 199 mg/dL Comment: Interpretive Data Glucose is assumed to be non-fasting. Fasting Glucose reference ranges are: 0 - 150 years: 70 mg/dL - 99 mg/dL Current interpretive data was last revised on 2013. POC Device Number [id number] 4 CERNER BARBARAWCH Blood 01/16/2025 12:4 0 PM CDT 01/16/2025 12:40 PM CDT us Jeffrey Osorio MD PhD LAB POCT ORDERABLES - DEVICE F inal Result Performing Organization Address [facility] de Phone Number [facility] [address] [facility] [employer] [place], [place] [phone] * (ABNORMAL) POCT glucose (01/16/2025 9:13 AM CDT) Pathologist [facility] [place] Glucose, POC 210(H) 70 - 199 mg/dL Comment: Interpretive Data Glucose is assumed to be non-fasting. Fasting Glucose reference ranges are: 0 - 150 years: 70 mg/dL - 99 mg/dL Current interpretive data was last revised on 2013. POC Device Number [id number] 4 [employer] Blood 01/16/2025 9:13 AM CDT 01/16/2025 9:13 AM CDT us Jeffrey Osorio MD PhD LAB POCT ORDERABLES - DEVICE F inal Result Performing Organization Address [facility] Phone Number [facility] B[facility] [address] [facility] [employer] [place], [place] [phone] * (ABNORMAL) eGFR (01/16/2025 6:49 AM CDT) [...] BLOOD ORDERABLES Marli lipscomb Result HERBER REINA [address] [facility]. [place] [address] * (ABNORMAL) CBC without differential (01/16/2025 6:49 AM CDT) WBC 5.02 3.80 - 9.90 K/cumm Hgb 10.1(L) 11.9 - 15.5 g/dL [facility] BJW Hct 32.7(L) 35.6 - 45.5 % [facility] Plt 396 150 - 400 K/cumm [facility] BJW MPV 10.3 9.1 - 12.3 fL [facility] RBC 3.61(L) 3.90 - 5.20 M/cumm [facility] MCV 90.6 81.3 - 96.4 fL [facility] MCH 28.0 27.1 - 33.3 pg [facility] MCHC 30.9(L) 32.3 - 35.7 g/dL [facility] RDW CV 15.4(H) 11.1 - 14.9 % CERNER BJW[facility] RDW SD 50.6(H) 35.7 - 48.1 fL [facility] BJW[facility] NRBC abs 0.00 0.00 - 0.01 K/cumm [facility] Blood 01/16/2025 6:49 AM CDT 01/16/2025 7:01 AM CDT Parag Xie MD LAB BLOOD ORDERABLES Marli lipscomb Result Performing Organization Address [facility]/ZIP Co de Phone Number HERBER MARCANO [address] [facility] [address] * (ABNORMAL) Basic metabolic panel (01/16/2025 6:49 AM CDT) [facility] Sodium 137 135 - 145 mmol/L Potassium, pl 4.5 3.3 - 4.9 mmol/L CERNER BJW Chloride 97 97 - 110 mmol/L CERNER B[facility] CO2 26 22 - 32 mmol/L CERNER B[facility] Anion gap 14 2 - 15 mmol/L [facility] BUN 68(H) 6 - 25 mg/dL CERNER [facility] Creatinine 7.90(H) 0.60 - 1.10 mg/dL [facility] Glucose 126 70 - 199 mg/dL [facility] Comment: Interpretive Data Fasting glucose >/= 126 [...] 2022. Calcium 8.7 8.5 - 10.3 mg/dL [facility] Blood 01/16/2025 6:49 AM CDT 01/16/2025 7:01 AM CDT Parag Xie MD LAB BLOOD ORDERABLES Marli lipscomb Result Performing Organization Address [facility] Co de Phone Number HERBER JIMENEZWCH [address] [facility] [place] [address] * POCT glucose (01/16/2025 3:16 AM CDT) Glucose, POC 112 70 - 199 mg/dL Comment: Interpretive Data Glucose is assumed to be non-fasting. Fasting Glucose reference ranges are: 0 - 150 years: 70 mg/dL - 99 mg/dL Current interpretive data was last revised on 2013. POC Device Number [id number] 1 HERBER MARCANO Blood 01/16/2025 3:16 AM CDT 01/16/2025 3:16 AM CDT Parag Xie MD LAB POCT ORDERABLES - DEV ICE Final Result Performing Organization Address [facility] de Phone Number [facility] [address] [facility] [employer] [place], [place] [address] * POCT glucose (01/15/2025 11:41 PM CDT) Glucose, POC 72 70 - 199 mg/dL Comment: Interpretive Data Glucose is assumed to be non-fasting. Fasting Glucose reference ranges are: 0 - 150 years: 70 mg/dL - 99 mg/dL Current interpretive data was last revised on 2013. POC Device Number [id number] 1 HERBER MARCANO Blood 01/15/2025 11:4 1 PM CDT 01/15/2025 11:41 PM CDT Parag Xie MD LAB POCT ORDERABLES - DEV ICE Final Result Performing Organization Address [facility] de Phone Number [facility] [address] [facility] [employer] [place], [place] [address] * POCT glucose (01/15/2025 8:45 PM CDT) Glucose, POC 85 70 - 199 mg/dL Comment: Interpretive Data Glucose is assumed to be non-fasting. Fasting Glucose reference ranges are: 0 - 150 years: 70 mg/dL - 99 mg/dL Current interpretive data was last revised on 2013. POC Device Number [id number] 1 HERBER MARCANO Blood 01/15/2025 8:45 PM CDT 01/15/2025 8:45 PM CDT Parag Xie MD LAB POCT ORDERABLES - DEV ICE Final Result Performing Organization Address [facility] Phone Number HERBER JIMENEZCH [address] [facility] [place] [address] * POCT glucose (01/15/2025 7:01 PM CDT) Glucose, POC 121 70 - 199 mg/dL Comment: Interpretive Data Glucose is assumed to be non-fasting. Fasting Glucose reference ranges are: 0 - 150 years: 70 mg/dL - 99 mg/dL Current interpretive data was last revised on 2013. POC Device Number [id number] 1 HERBER MARCANO Blood 01/15/2025 7:01 PM CDT 01/15/2025 7:01 PM CDT Parag Xie MD LAB POCT ORDERABLES - DEV ICE Final Result Performing Organization Address [facility] Phone Number HERBER JIMENEZCH [address] [facility] [place] [employer] [address] * POCT hCG, urine (01/15/2025 4:15 PM [...] for uric acid stone formation. Source: [employer] Current Interpretive Data was last revised on [...] GENERAL ORDERABLES Final Result Performing Organization Address [facility] de Phone Number HERBER REINACH [address] [facility] [place] [address] * (ABNORMAL) Urinalysis, microscopic only (01/15/2025 4:12 PM CDT) WBC, ur 0-5 0 - 5 /HPF RBC, ur 6-10(A) 0 - 2 /HPF CERNER [facility] Epithelial cells, squamous, ur 6-10(A) 0 - 5 /HPF CERNER B[facility] Bacteria, ur 3+(A) CERNER B[facility] Mucous, ur Present(A) CERNER B[facility] Culture Reflex Comment Reflex conditions for urine culture (WBC >10) not met. [facility] Urine 01/15/2025 4:12 PM CDT 01/15/2025 4:14 PM CDT Odilon Correa MD PhD LAB URINE ORDERABLE S Final Result Performing Organization Address [facility] de Phone Number HERBER JIMENEZWCH [address] [facility] [place] [address] * (ABNORMAL) eGFR (01/15/2025 3:18 PM CDT) [...] LAB BLOOD ORDERABLES Fin al Result HERBER [facility] [address] [facility]. [place] [address] * Differential, auto (01/15/2025 3:18 [...] revised on 2017. Eosinophil pct 1.5 % [facility] Comment: Interpretive Data Percent cell count reference ranges are not reported, since discordance with absolute values may lead to misinterpretation of CBC data. Current Interpretive Data was last revised on 2017. Basophil pct 0.2 % [facility] Comment: Interpretive Data Percent cell count reference ranges are not reported, since discordance with absolute values may lead to misinterpretation of CBC data. Current Interpretive Data was last revised on 2017. Blood 01/15/2025 3:18 PM CDT 01/15/2025 3:21 PM CDT Ashlee FRANCE LAB BLOOD ORDERABLES Fin al Result [facility] [address] [facility]. [place] [address] * (ABNORMAL) CBC with auto differential (01/15/2025 3:18 PM CDT) WBC 4.76 3.80 - 9.90 K/cumm Hgb 9.5(L) 11.9 - 15.5 g/dL [facility] Hct 30.9(L) 35.6 - 45.5 % [facility] Plt 372 150 - 400 K/cumm [facility] MPV 10.4 9.1 - 12.[address] [facility] RBC 3.40(L) 3.90 - 5.20 M/cumm [facility] MCV 90.9 81.3 - 96.[address] [facility] MCH 27.9 27.1 - 33.[address] [facility] MCHC 30.7(L) 32.3 - 35.7 g/dL [facility] RDW CV 15.5(H) 11.1 - 14.9 % [facility] RDW SD 50.7(H) 35.7 - 48.1 fL CERNER BJWCH NRBC abs 0.00 0.00 - 0.01 K/cumm CERNER [facility] Blood Venous blood specimen / Unknown 01/15/2025 3:18 PM CDT 01/15/2025 3:21 PM CDT us Odilon Correa MD PhD LAB BLOOD ORDERABLE S Final Result HERBER REINA [address] [facility]. [place] [address] * (ABNORMAL) Comprehensive metabolic panel (01/15/2025 3:18 [...] Alk phos 147(H) 40 - 130 Units/L [facility] ALT 36 7 - 45 Units/L HERBER JIMENEZWCH AST 21 10 - 45 Units/L HERBER JIMENEZW Blood Venous blood specimen / Unknown 01/15/2025 3:18 PM CDT 01/15/2025 3:21 PM CDT Odilon Correa MD PhD LAB BLOOD ORDERABLE S Final Result Performing Organization Address [facility] de Phone Number [facility] [address] [facility] [place] [address] * (ABNORMAL) POCT glucose (01/12/2025 10:49 AM CDT) Glucose, POC 270(H) 70 - 199 mg/dL Comment: Interpretive Data Glucose is assumed to be non-fasting. Fasting Glucose reference ranges are: 0 - 150 years: 70 mg/dL - 99 mg/dL Current interpretive data was last revised on 2013. POC Device Number [id number] 4 HERBER MARCANO Blood 01/12/2025 10:4 9 AM CDT 01/12/2025 10:49 AM CDT Parag Xie MD LAB POCT ORDERABLES - DEV ICE Final Result Performing Organization Address [facility] de Phone Number [facility] [address] [facility] [place] [address] * (ABNORMAL) POCT glucose (01/12/2025 8:11 AM CDT) Glucose, POC 343(H) 70 - 199 mg/dL Comment: Interpretive Data Glucose is assumed to be non-fasting. Fasting Glucose reference ranges are: 0 - 150 years: 70 mg/dL - 99 mg/dL Current interpretive data was last revised on 2013. POC Device Number [id number] 1 HERBER MARCANO Blood 01/12/2025 8:11 AM CDT 01/12/2025 8:11 AM CDT Parag Xie MD LAB POCT ORDERABLES - DEV ICE Final Result Performing Organization Address [facility] Co de Phone Number HERBER REINACH [address] [facility]. [facility] [place] [employer] [place] [address] * POCT glucose (01/11/2025 11:44 PM CDT) Glucose, POC 129 70 - 199 mg/dL Comment: Interpretive Data Glucose is assumed to be non-fasting. Fasting Glucose reference ranges are: 0 - 150 years: 70 mg/dL - 99 mg/dL Current interpretive data was last revised on 2013. POC Device Number [id number] 1 HERBER MARCANO Blood 01/11/2025 11:4 4 PM CDT 01/11/2025 11:44 PM CDT Parag Xie MD LAB POCT ORDERABLES - DEV ICE Final Result Performing Organization Address [facility] de Phone Number HERBER JIMENEZCH [address] [facility] [place] [address] * POCT glucose (01/11/2025 10:23 PM CDT) Glucose, POC 170 70 - 199 mg/dL Comment: Interpretive Data Glucose is assumed to be non-fasting. Fasting Glucose reference ranges are: 0 - 150 years: 70 mg/dL - 99 mg/dL Current interpretive data was last revised on 2013. POC Device Number [id number] 1 HERBER MARCANO Blood 01/11/2025 10:2 3 PM CDT 01/11/2025 10:23 PM CDT Parag Xie MD LAB POCT ORDERABLES - DEV ICE Final Result Performing Organization Address [facility] Co de Phone Number HERBER JIMENEZCH [address] [facility]. [facility] [place] [employer] [place] [address] * (ABNORMAL) POCT glucose (01/11/2025 8:33 PM CDT) Glucose, POC 225(H) 70 - 199 mg/dL Comment: Interpretive Data Glucose is assumed to be non-fasting. Fasting Glucose reference ranges are: 0 - 150 years: 70 mg/dL - 99 mg/dL Current interpretive data was last revised on 2013. POC Device Number [id number] 4 HERBER MARCANO Blood 01/11/2025 8:33 PM CDT 01/11/2025 8:33 PM CDT Parag Xie MD LAB POCT ORDERABLES - DEV ICE Final Result Performing Organization Address [facility] de Phone Number [facility] [address] [facility] [place] [address] * (ABNORMAL) POCT glucose (01/11/2025 7:01 PM CDT) Glucose, POC 203(H) 70 - 199 mg/dL Comment: Interpretive Data Glucose is assumed to be non-fasting. Fasting Glucose reference ranges are: 0 - 150 years: 70 mg/dL - 99 mg/dL Current interpretive data was last revised on 2013. POC Device Number [id number] 4 HERBER REINA Blood 01/11/2025 7:01 PM CDT 01/11/2025 7:01 PM CDT Parag Xie MD LAB POCT ORDERABLES - DEV ICE Final Result Performing Organization Address [facility] Co de Phone Number [facility] [address] [facility] [place] [address] * POCT glucose (01/11/2025 5:03 PM CDT) Glucose, POC 142 70 - 199 mg/dL Comment: Interpretive Data Glucose is assumed to be non-fasting. Fasting Glucose reference ranges are: 0 - 150 years: 70 mg/dL - 99 mg/dL Current interpretive data was last revised on 2013. POC Device Number [id number] 4 HERBER MARCANO Blood 01/11/2025 5:03 PM CDT 01/11/2025 5:03 PM CDT Parag Xie MD LAB POCT ORDERABLES - DEV ICE Final Result Performing Organization Address [facility] de Phone Number [facility] [address] [facility] [place] [address] * POCT glucose (01/11/2025 12:02 PM CDT) Glucose, POC 87 70 - 199 mg/dL Comment: Interpretive Data Glucose is assumed to be non-fasting. Fasting Glucose reference ranges are: 0 - 150 years: 70 mg/dL - 99 mg/dL Current interpretive data was last revised on 2013. POC Device Number [id number] 9 HERBER MARCANO Blood 01/11/2025 12:0 2 PM CDT 01/11/2025 12:02 PM CDT Parag Xie MD LAB POCT ORDERABLES - DEV ICE Final Result Performing Organization Address [facility] de Phone Number [facility] [address] [facility] [place] [address] * POCT glucose (01/11/2025 9:14 AM CDT) Glucose, POC 194 70 - 199 mg/dL Comment: Interpretive Data Glucose is assumed to be non-fasting. Fasting Glucose reference ranges are: 0 - 150 years: 70 mg/dL - 99 mg/dL Current interpretive data was last revised on 2013. POC Device Number [id number] 9 HERBER MARCANO Blood 01/11/2025 9:14 AM CDT 01/11/2025 9:14 AM CDT Parag Xie MD LAB POCT ORDERABLES - DEV ICE Final Result Performing Organization Address [facility] Co de Phone Number HERBER JIMENEZWCH [address] [address] [employer] [place], [place] [phone] * (ABNORMAL) eGFR (01/11/2025 8:27 AM CDT) [...] ORDERABLES Final Re sult Performing Organization Address [facility]/ZIP Co de Phone Number HERBER B[facility] [address] [address] [employer] [address] * (ABNORMAL) Phosphorus (01/11/2025 8:27 AM CDT) Phosphorus, pl 6.9(H) 2.3 - 4.5 mg/dL Blood 01/11/2025 8:27 AM CDT 01/11/2025 8:35 AM CDT Narrative HERBER MARCANO - 01/11/2025 8:53 AM CDT Please draw with dialysis Lisbet Franz MD LAB BLOOD ORDERABLES Final Re sult Performing Organization Address [facility] Co de Phone Number HERBER REINACH [address] [facility] [employer] [place], [place] [address] * Magnesium (01/11/2025 8:27 AM CDT) Pathologist [facility] [place] Magnesium 2.4 1.4 - 2.5 mg/dL Comment: [...] ORDERABLES Final Re sult Performing Organization Address [facility] de Phone Number HERBER REINACH [address] [facility] [place] [address] * (ABNORMAL) Basic metabolic panel (01/11/2025 8:27 AM CDT) Pathologist [facility] [place] Sodium 139 135 - 145 mmol/L Potassium, pl 4.1 3.3 - 4.9 mmol/L [facility] Chloride 103 97 - 110 mmol/L [facility] CO2 23 22 - 32 mmol/L [facility] Anion gap 13 2 - 15 mmol/L [facility] BUN 45(H) 6 - 25 mg/dL [facility] Creatinine 6.97(H) 0.60 - 1.10 mg/dL [facility] Glucose 237(H) 70 - 199 mg/dL [facility] Comment: Interpretive Data Fasting glucose >/= 126 [...] Calcium 7.1(L) 8.5 - 10.3 mg/dL [facility] Blood 01/11/2025 8:27 AM CDT 01/11/2025 8:35 AM CDT Narrative [facility] 01/11/2025 8:53 AM CDT Please draw with dialysis us Lisbet Franz MD LAB BLOOD ORDERABLES Final Re sult Performing Organization Address [facility] Co de Phone Number [facility] [address] [place] [address] * (ABNORMAL) POCT glucose (01/11/2025 7:52 AM CDT) Glucose, POC 249(H) 70 - 199 mg/dL Comment: Interpretive Data Glucose is assumed to be non-fasting. Fasting Glucose reference ranges are: 0 - 150 years: 70 mg/dL - 99 mg/dL Current interpretive data was last revised on 2013. POC Device Number [id number] [facility] Blood 01/11/2025 7:52 AM CDT 01/11/2025 7:52 AM CDT us Parag Xie MD LAB POCT ORDERABLES - DEV ICE Final Result Performing Organization Address City/[facility]/ZIP Co de Phone Number [facility] [address] [facility] [place] [address] * (ABNORMAL) POCT glucose (01/11/2025 4:35 AM CDT) Glucose, POC 267(H) 70 - 199 mg/dL Comment: Interpretive Data Glucose is assumed to be non-fasting. Fasting Glucose reference ranges are: 0 - 150 years: 70 mg/dL - 99 mg/dL Current interpretive data was last revised on 2013. POC Device Number [id number] HERBER MARCANO Glucose comment 1 RN/ Notified HERBER MARCANO Blood 01/11/2025 4:35 AM CDT 01/11/2025 4:35 AM CDT Parag Xie MD LAB POCT ORDERABLES - DEV ICE Final Result Performing Organization Address [facility] de Phone Number HERBER JIMENEZWCH [phone] [facility] [employer] [place], [place] [phone] * (ABNORMAL) POCT glucose (01/10/2025 11:36 PM CDT) Glucose, POC 220(H) 70 - 199 mg/dL Comment: Interpretive Data Glucose is assumed to be non-fasting. Fasting Glucose reference ranges are: 0 - 150 years: 70 mg/dL - 99 mg/dL Current interpretive data was last revised on 2013. POC Device Number [id number] HERBER MARCANO Glucose comment 1 RN/ Notified HERBER MARCANO Blood 01/10/2025 11:3 6 PM CDT 01/10/2025 11:36 PM CDT Parag Xie MD LAB POCT ORDERABLES - DEV ICE Final Result Performing Organization Address [facility] de Phone Number HERBER JIMENEZWCH [address] [facility] [place] [address] * POCT glucose (01/10/2025 9:11 PM CDT) Glucose, POC 142 70 - 199 mg/dL Comment: Interpretive Data Glucose is assumed to be non-fasting. Fasting Glucose reference ranges are: 0 - 150 years: 70 mg/dL - 99 mg/dL Current interpretive data was last revised on 2013. POC Device Number [id number] 9 HERBER MARCANO Blood 01/10/2025 9:11 PM CDT 01/10/2025 9:11 PM CDT Parag Xie MD LAB POCT ORDERABLES - DEV ICE Final Result Performing Organization Address [facility] Co de Phone Number [facility] [address] [facility] [place] [employer] [address] * POCT glucose (01/10/2025 7:44 PM CDT) Glucose, POC 159 70 - 199 mg/dL Comment: Interpretive Data Glucose is assumed to be non-fasting. Fasting Glucose reference ranges are: 0 - 150 years: 70 mg/dL - 99 mg/dL Current interpretive data was last revised on 2013. POC Device Number [id number] 9 HERBER MARCANO Blood 01/10/2025 7:44 PM CDT 01/10/2025 7:44 PM CDT Parag Xie MD LAB POCT ORDERABLES - DEV ICE Final Result Performing Organization Address [facility] Phone Number HERBER JIMENEZCH [address] [facility] [place] [employer] [address] * (ABNORMAL) POCT glucose (01/10/2025 5:29 PM CDT) Glucose, POC 230(H) 70 - 199 mg/dL Comment: Interpretive Data Glucose is assumed to be non-fasting. Fasting Glucose reference ranges are: 0 - 150 years: 70 mg/dL - 99 mg/dL Current interpretive data was last revised on 2013. POC Device Number [id number] 9 HERBER MARCANO Blood 01/10/2025 5:29 PM CDT 01/10/2025 5:29 PM CDT Parag Xie MD LAB POCT ORDERABLES - DEV ICE Final Result Performing Organization Address [facility] Co de Phone Number [facility] [address] [facility]. [facility] [place] [employer] [place] [address] * (ABNORMAL) POCT glucose (01/10/2025 1:56 PM CDT) Glucose, POC 233(H) 70 - 199 mg/dL Comment: Interpretive Data Glucose is assumed to be non-fasting. Fasting Glucose reference ranges are: 0 - 150 years: 70 mg/dL - 99 mg/dL Current interpretive data was last revised on 2013. POC Device Number [id number] 9 HERBER MARCANO Blood 01/10/2025 1:56 PM CDT 01/10/2025 1:56 PM CDT Parag Xie MD LAB POCT ORDERABLES - DEV ICE Final Result Performing Organization Address [facility] de Phone Number [facility] [address] [facility]. [facility] [place] [employer] [place] [address] * (ABNORMAL) POCT glucose (01/10/2025 12:01 PM CDT) Glucose, POC 331(H) 70 - 199 mg/dL Comment: Interpretive Data Glucose is assumed to be non-fasting. Fasting Glucose reference ranges are: 0 - 150 years: 70 mg/dL - 99 mg/dL Current interpretive data was last revised on 2013. POC Device Number [id number] 4 HERBER MARCANO Blood 01/10/2025 12:0 1 PM CDT 01/10/2025 12:01 PM CDT Parag Xie MD LAB POCT ORDERABLES - DEV ICE Final Result Performing Organization Address [facility] de Phone Number [facility] [address] [facility]. [facility] [place] [employer] [place] [address] * (ABNORMAL) POCT glucose (01/10/2025 10:22 AM CDT) Glucose, POC 335(H) 70 - 199 mg/dL Comment: Interpretive Data Glucose is assumed to be non-fasting. Fasting Glucose reference ranges are: 0 - 150 years: 70 mg/dL - 99 mg/dL Current interpretive data was last revised on 2013. POC Device Number [id number] HERBER MARCANO Glucose comment 1 RN/MD Notified HERBER MARCANO Blood 01/10/2025 10:2 2 AM CDT 01/10/2025 10:22 AM CDT Parag Xie MD LAB POCT ORDERABLES - DEV ICE Final Result Performing Organization Address [facility] de Phone Number [facility] [address] [facility] [employer] [place], [place] [phone] * POCT glucose (01/10/2025 7:57 AM CDT) Glucose, POC 185 70 - 199 mg/dL Comment: Interpretive Data Glucose is assumed to be non-fasting. Fasting Glucose reference ranges are: 0 - 150 years: 70 mg/dL - 99 mg/dL Current interpretive data was last revised on 2013. POC Device Number [id number] 4 HERBER MARCANO Blood 01/10/2025 7:57 AM CDT 01/10/2025 7:57 AM CDT Parag Xie MD LAB POCT ORDERABLES - DEV ICE Final Result Performing Organization Address [facility] de Phone Number [facility] [address] [facility] [place] [employer] [place] [address] * POCT glucose (01/10/2025 4:07 AM CDT) Glucose, POC 114 70 - 199 mg/dL Comment: Interpretive Data Glucose is assumed to be non-fasting. Fasting Glucose reference ranges are: 0 - 150 years: 70 mg/dL - 99 mg/dL Current interpretive data was last revised on 2013. POC Device Number [id number] 4 HERBER MARCANO Blood 01/10/2025 4:07 AM CDT 01/10/2025 4:07 AM CDT Parag Xie MD LAB POCT ORDERABLES - DEV ICE Final Result Performing Organization Address [facility] Co de Phone Number HERBER REINACH [address] [address] [employer] [place], [place] [phone] * (ABNORMAL) eGFR (01/10/2025 4:02 AM CDT) [...] ORDERABLES Marli l Result Performing Organization Address City/[facility]/ZIP Co de Phone Number HERBER REINACH [phone] [facility] [employer] [place], [place] [phone] * (ABNORMAL) CBC without differential (01/10/2025 4:02 AM CDT) WBC 4.58 3.80 - 9.90 K/cumm Hgb 9.0(L) 11.9 - 15.5 g/dL [facility] Hct 28.2(L) 35.6 - 45.5 % [facility] Plt 274 150 - 400 K/cumm [facility] MPV 10.6 9.1 - 12.[address] [facility] RBC 3.18(L) 3.90 - 5.20 M/cumm [facility] MCV 88.7 81.3 - 96.[address] [facility] MCH 28.3 27.1 - 33.[address] [facility] MCHC 31.9(L) 32.3 - 35.7 g/dL [facility] RDW CV 15.2(H) 11.1 - 14.9 % [facility] RDW SD 48.3(H) 35.7 - 48.[address] [facility] NRBC abs 0.00 0.00 - 0.01 K/cumm [facility] Blood 01/10/2025 4:02 AM CDT 01/10/2025 4:20 AM CDT us Parag Xie MD LAB BLOOD ORDERABLES Marli lipscomb Result [facility] [address] [facility]. Department [place] [address] * (ABNORMAL) Basic metabolic panel (01/10/2025 4:02 AM CDT) [facility] Sodium 136 135 - 145 mmol/L Potassium, pl 3.5 3.3 - 4.9 mmol/L [facility] Chloride 98 97 - 110 mmol/L [facility] CO2 24 22 - 32 mmol/L [facility] Anion gap 14 2 - 15 mmol/L [facility] BUN 22 6 - 25 mg/dL [facility] Creatinine 5.00(H) 0.60 - 1.10 mg/dL [facility] Glucose 109 70 - 199 mg/dL [facility] Comment: Interpretive Data Fasting glucose >/= 126 [...] Calcium 7.7(L) 8.5 - 10.3 mg/dL HERBER REIAN Blood 01/10/2025 4:02 AM CDT 01/10/2025 4:20 AM CDT Parag Xie MD LAB BLOOD ORDERABLES Marli l Result Performing Organization Address [facility] Co de Phone Number [facility] [address] [place] [address] * POCT glucose (01/09/2025 11:05 PM CDT) Glucose, POC 159 70 - 199 mg/dL Comment: Interpretive Data Glucose is assumed to be non-fasting. Fasting Glucose reference ranges are: 0 - 150 years: 70 mg/dL - 99 mg/dL Current interpretive data was last revised on 2013. POC Device Number [id number] 1 HERBER REINA Blood 01/09/2025 11:0 5 PM CDT 01/09/2025 11:05 PM CDT Parag Xie MD LAB POCT ORDERABLES - DEV ICE Final Result Performing Organization Address [facility] Co de Phone Number [facility] [address] [facility] [place] [address] * (ABNORMAL) POCT glucose (01/09/2025 10:22 PM CDT) Glucose, POC 60(L) 70 - 199 mg/dL Comment: Interpretive Data Glucose is assumed to be non-fasting. Fasting Glucose reference ranges are: 0 - 150 years: 70 mg/dL - 99 mg/dL Current interpretive data was last revised on 2013. POC Device Number [id number] 1 HERBER MARCANO Blood 01/09/2025 10:2 2 PM CDT 01/09/2025 10:22 PM CDT Parag Xie MD LAB POCT ORDERABLES - DEV ICE Final Result Performing Organization Address [facility] Phone Number [facility] [address] [facility] [place] [employer] [place] [address] * POCT glucose (01/09/2025 8:46 PM CDT) Glucose, POC 80 70 - 199 mg/dL Comment: Interpretive Data Glucose is assumed to be non-fasting. Fasting Glucose reference ranges are: 0 - 150 years: 70 mg/dL - 99 mg/dL Current interpretive data was last revised on 2013. POC Device Number [id number] 1 HERBER MARCANO Blood 01/09/2025 8:46 PM CDT 01/09/2025 8:46 PM CDT Parag Xie MD LAB POCT ORDERABLES - DEV ICE Final Result Performing Organization Address [facility] Phone Number [facility] [address] [facility] [place] [employer] [place] [address] * POCT glucose (01/09/2025 6:06 PM CDT) Glucose, POC 193 70 - 199 mg/dL Comment: Interpretive Data Glucose is assumed to be non-fasting. Fasting Glucose reference ranges are: 0 - 150 years: 70 mg/dL - 99 mg/dL Current interpretive data was last revised on 2013. POC Device Number [id number] 4 [facility] Blood 01/09/2025 6:06 PM CDT 01/09/2025 6:06 PM CDT Parag Xie MD LAB POCT ORDERABLES - DEV ICE Final Result Performing Organization Address [facility] de Phone Number HERBER JIMENEZCH [address] [facility]. [facility] [place] [employer] [place] [address] * (ABNORMAL) POCT glucose (01/09/2025 5:41 PM CDT) Glucose, POC 64(L) 70 - 199 mg/dL Comment: Interpretive Data Glucose is assumed to be non-fasting. Fasting Glucose reference ranges are: 0 - 150 years: 70 mg/dL - 99 mg/dL Current interpretive data was last revised on 2013. POC Device Number [id number] 4 HERBER MARCANO Blood 01/09/2025 5:41 PM CDT 01/09/2025 5:41 PM CDT Parag Xie MD LAB POCT ORDERABLES - DEV ICE Final Result Performing Organization Address [facility] de Phone Number HERBER BJWCH [address] [facility]. [facility] [place] [employer] [place] [address] * POCT glucose (01/09/2025 5:05 PM CDT) Glucose, POC 100 70 - 199 mg/dL Comment: Interpretive Data Glucose is assumed to be non-fasting. Fasting Glucose reference ranges are: 0 - 150 years: 70 mg/dL - 99 mg/dL Current interpretive data was last revised on 2013. POC Device Number [id number] 4 HERBER REINA Blood 01/09/2025 5:05 PM CDT 01/09/2025 5:05 PM CDT Parag Xie MD LAB POCT ORDERABLES - DEV ICE Final Result Performing Organization Address [facility] Co de Phone Number HERBER BJWCH [address] [facility]. [facility] [place] [employer] [place] [address] * (ABNORMAL) POCT glucose (01/09/2025 2:05 PM CDT) Glucose, POC 228(H) 70 - 199 mg/dL Comment: Interpretive Data Glucose is assumed to be non-fasting. Fasting Glucose reference ranges are: 0 - 150 years: 70 mg/dL - 99 mg/dL Current interpretive data was last revised on 2013. POC Device Number [id number] 4 CERNER BARBARAW Blood 01/09/2025 2:05 PM CDT 01/09/2025 2:05 PM CDT us Parag Xie MD LAB POCT ORDERABLES - DEV ICE Final Result Performing Organization Address City[facility]/ZIP Co de Phone Number [facility] [address] meets. [employer] [place], [place] [phone] * Hepatitis B Surface Antigen Blood (01/09/2025 1:16 PM CDT) [facility] HepBsAg Nonreactive Nonreactive Comment:Testing performed by : [facility], [facility], [place]., [address] Blood 01/09/2025 1:16 PM CDT 01/09/2025 2:13 PM CDT us Russell Weller MD LAB MICROBIOLOGY - GENER AL ORDERABLES Final Result Performing Organization Address City/[facility]/ZIP Co de Phone Number [facility] BJWCH [phone] [address]. [employer] [place], [place] [phone] * (ABNORMAL) POCT glucose (01/09/2025 12:44 PM CDT) Glucose, POC 298(H) 70 - 199 mg/dL Comment: Interpretive Data Glucose is assumed to be non-fasting. Fasting Glucose reference ranges are: 0 - 150 years: 70 mg/dL - 99 mg/dL Current interpretive data was last revised on 2013. POC Device Number [id number] 4 CERNER [facility] Blood 01/09/2025 12:4 4 PM CDT 01/09/2025 12:44 PM CDT Parag Xie MD LAB POCT ORDERABLES - DEV ICE Final Result Performing Organization Address [facility] de Phone Number HERBER REINA [address] [facility] [place] [employer] [address] * (ABNORMAL) POCT glucose (01/09/2025 12:00 PM CDT) Glucose, POC 342(H) 70 - 199 mg/dL Comment: Interpretive Data Glucose is assumed to be non-fasting. Fasting Glucose reference ranges are: 0 - 150 years: 70 mg/dL - 99 mg/dL Current interpretive data was last revised on 2013. POC Device Number [id number] 4 HERBER JIMENEZWCH Blood 01/09/2025 12:0 0 PM CDT 01/09/2025 12:00 PM CDT Parag Xie MD LAB POCT ORDERABLES - DEV ICE Final Result Performing Organization Address [facility] de Phone Number HERBER JIMENEZCH [address] [facility]. [facility] [place] [employer] [place] [address] * (ABNORMAL) POCT glucose (01/09/2025 10:55 AM CDT) Glucose, POC 358(H) 70 - 199 mg/dL Comment: Interpretive Data Glucose is assumed to be non-fasting. Fasting Glucose reference ranges are: 0 - 150 years: 70 mg/dL - 99 mg/dL Current interpretive data was last revised on 2013. POC Device Number [id number] 4 HERBER JIMENEZWCH Blood 01/09/2025 10:5 5 AM CDT 01/09/2025 10:55 AM CDT Parag Xie MD LAB POCT ORDERABLES - DEV ICE Final Result Performing Organization Address [facility] de Phone Number HERBER JIMENEZCH [address] [facility]. Department [place] [employer] [place] [address] * IR Gastrojejunostomy Tube Placement (01/09/2025 10:32 AM CDT) Anatomical Region Laterality Modality Body N/A X-Ray Angiograph y 01/09/2025 4:17 PM CDT Impressions 01/09/2025 4:17 PM CDT Successful placement of a 18 Cameroonian Arlene single lumen gastrojejunostomy catheter. PLAN: The [...] was obtained. Prior to beginning the procedure, Hamlin Protocol was performed to confirm the patient's [...] was obtained. Prior to beginning the procedure, Hamlin Protocol was performed to confirm the patient's [...] jejunum. IMPRESSION: Successful placement of a 18 Cameroonian Arlene single lumen gastrojejunostomy catheter. PLAN: The catheter is ready for feeding immediately through the jejunal port. Please flush the catheter with 20 cc of water after every feed and once each shift. Never attempt to administer crushed pills through the jejunal lumen. Electronically signed by: Jamie Bell M.D. Yessenia Dominguez MD IMG IR PROCEDURES Final Res ult * MO AN ELECTIVE ENDOTRACHEAL AIRWAY, MO AN PROCEDURE PLACEHOLDER (01/09/2025 9:43 AM CDT) [...] * POCT glucose (01/09/2025 9:02 AM CDT) [facility] Signature Glucose, POC 120 70 - 199 mg/dL Comment: Interpretive Data Glucose is assumed to be non-fasting. Fasting Glucose reference ranges are: 0 - 150 years: 70 mg/dL - 99 mg/dL Current interpretive data was last revised on 2013. POC Device Number [id number] 9 HERBER MARCANO Blood 01/09/2025 9:02 AM CDT 01/09/2025 9:02 AM CDT Parag Xie MD LAB POCT ORDERABLES - DEV ICE Final Result Performing Organization Address [facility] Co de Phone Number [facility] [address] meets. [facility] [place] [address] * POCT hCG, urine (01/09/2025 [...] last revised on 2013. POC Device Number [id number] 1 HERBER MARCANO Blood 01/09/2025 7:09 AM CDT 01/09/2025 7:09 AM CDT Parag Xie MD LAB POCT ORDERABLES - DEV ICE Final Result Performing Organization Address City/[facility]/ZIP Co de Phone Number [facility] [address] meets. [facility] [employer] [place], [place] [phone] * POCT glucose (01/09/2025 4:11 AM CDT) Pathologist [facility] [place] Glucose, POC 130 70 - 199 mg/dL Comment: Interpretive Data Glucose is assumed to be non-fasting. Fasting Glucose reference ranges are: 0 - 150 years: 70 mg/dL - 99 mg/dL Current interpretive data was last revised on 2013. POC Device Number [id number] 4 [facility] Blood 01/09/2025 4:11 AM CDT 01/09/2025 4:11 AM CDT Yessenia Dominguez MD LAB POCT ORDERABLES - DEVIC E Final Result Performing Organization Address [facility]/ZIP Co de Phone Number [facility] [address] meets [employer] [place], [place] [phone] * Beta-hydroxybutyrate (01/09/2025 12:50 AM CDT) [facility] Beta-Hydroxybut yrate <0.5 0.0 - 0.5 mmol/L Blood 01/09/2025 12:5 0 AM CDT 01/09/2025 12:57 AM CDT Yessenia Dominguez MD LAB BLOOD ORDERABLES Edited Result - Final Performing Organization Address [facility] Co de Phone Number [facility] [address] [facility] [place] [address] * (ABNORMAL) eGFR (01/09/2025 12:49 AM CDT) Pathologist [facility] [place] eGFR 5(L) >=60 mL/min/1. 73 m2 Comment: [...] BLOOD ORDERABLES Final Result Performing Organization Address [facility] Co de Phone Number HERBER REINA [address] [address] [employer] [employer] [place], [place] [phone] * Blood gas, venous (01/09/2025 12:49 AM CDT) pH, Venous 7.34 7.32 - 7.43 PCO2, Venous 42 40 - 50 mmHg [facility] PO2, Venous 60 mmHg CERNER [facility] Comment: Interpretive Data No reference range established. Current interpretive data was last revised 2019. HCO3 Venous, Calculated 23 20 - 30 mmol/L [facility] BE, venous -3 mmol/L CERNER [facility] Comment: Interpretive Data No Reference Range Established Current Interpretive Data was last revised on 2017. Blood 01/09/2025 12:4 9 AM CDT 01/09/2025 12:57 AM CDT Yessenia Dominguez MD LAB BLOOD ORDERABLES Final Result Performing Organization Address [facility] Co de Phone Number [facility] J[facility] [address] [facility] [employer] [place], [place] [phone] * (ABNORMAL) Basic metabolic panel (01/09/2025 12:49 AM CDT) Sodium 138 135 - 145 mmol/L Potassium, pl 4.4 3.3 - 4.9 mmol/L [facility] Chloride 101 97 - 110 mmol/L [facility] CO2 22 22 - 32 mmol/L [facility] Anion gap 15 2 - 15 mmol/L [facility] BUN 55(H) 6 - 25 mg/dL [facility] Creatinine 9.20(H) 0.60 - 1.10 mg/dL [facility] Glucose 292(H) 70 - 199 mg/dL [facility] Comment: Interpretive Data Fasting glucose >/= 126 [...] 2022. Calcium 7.2(L) 8.5 - 10.3 mg/dL [facility] Blood 01/09/2025 12:4 9 AM CDT 01/09/2025 12:57 AM CDT Yessenia Dominguez MD LAB BLOOD ORDERABLES Final Result Performing Organization Address City/State/[facility] Phone Number [facility] [address] [facility] Department [place] [address] * (ABNORMAL) POCT glucose (01/09/2025 12:16 AM CDT) [facility] Glucose, POC 322(H) 70 - 199 mg/dL Comment: Interpretive Data Glucose is assumed to be non-fasting. Fasting Glucose reference ranges are: 0 - 150 years: 70 mg/dL - 99 mg/dL Current interpretive data was last revised on 2013. POC Device Number [id number] 1 CERNER [facility] Blood 01/09/2025 12:1 6 AM CDT 01/09/2025 12:16 AM CDT Yessenia Dominguez MD LAB POCT ORDERABLES - DEVIC E Final Result Performing Organization Address [facility] de Phone Number HERBER BJ[facility] [address] [facility] [place] [address] * (ABNORMAL) POCT glucose (01/08/2025 10:21 PM CDT) [facility] [facility] Glucose, POC 399(H) 70 - 199 mg/dL Comment: Interpretive Data Glucose is assumed to be non-fasting. Fasting Glucose reference ranges are: 0 - 150 years: 70 mg/dL - 99 mg/dL Current interpretive data was last revised on 2013. POC Device Number [id number] HERBER BJW[facility] Blood 01/08/2025 10:2 1 PM CDT 01/08/2025 10:21 PM CDT Yessenia Dominguez MD LAB POCT ORDERABLES - DEVIC E Final Result Performing Organization Address [facility] Phone Number HERBER BJWCH [address] [facility] [employer] [place] [address] * XR Chest 1 View (01/08/2025 9:59 [...] MD LAB BLOOD ORDERABLES F inal Result CERJUL BJWCH [id number] [facility]. Department [place] [address] * Differential, auto (01/08/2025 8:57 PM CDT) [...] ORDERABLES F inal Result Performing Organization Address [facility] Co de Phone Number [facility] [address] [facility] [employer] [place], [place] [id number] * Beta-hydroxybutyrate (01/08/2025 8:57 PM CDT) [facility] Beta-Hydroxybut yrate <0.5 0.0 - 0.5 mmol/L Blood 01/08/2025 8:57 PM CDT 01/08/2025 9:02 PM CDT Yessenia Dominguez MD LAB BLOOD ORDERABLES Final Result Performing Organization Address [facility] de Phone Number [facility] [address] [facility] [place] [employer] [place] [address] * (ABNORMAL) CBC with auto differential (01/08/2025 8:57 PM CDT) [facility] WBC 6.16 3.80 - 9.90 K/cumm Hgb 9.2(L) 11.9 - 15.5 g/dL [facility] Hct 29.0(L) 35.6 - 45.5 % [facility] Plt 320 150 - 400 K/cumm [facility] MPV 10.6 9.1 - 12.[address] [facility] RBC 3.25(L) 3.90 - 5.20 M/cumm [facility] MCV 89.2 81.3 - 96.[address] [facility] MCH 28.3 27.1 - 33.[address] [facility] MCHC 31.7(L) 32.3 - 35.7 g/dL [facility] RDW CV 14.9 11.1 - 14.9 % [facility] RDW SD 48.1 35.7 - 48.[address] [facility] NRBC abs 0.00 0.00 - 0.01 K/cumm [facility] Blood 01/08/2025 8:57 PM CDT 01/08/2025 9:02 PM CDT Yareli Mitchell MD LAB BLOOD ORDERABLES F inal Result Performing Organization Address [facility]/ZIP Co de Phone Number [facility] [address] [facility] [place] [address] * Protime-INR (01/08/2025 8:57 PM CDT) PT 11.7 10.2 - 13.5 sec INR 1.04 0.90 - 1.20 [facility] Comment: Interpretive data Oral anticoagulant therapeutic ranges: Venous thromboembolism prophylaxis or treatment: 2.0-3.0 CARDIOLOGY Standard range: 2.0-3.0 High-intensity range: 2.5-3.5 Refer to indication-specific guidelines for appropriate target ranges for prosthetic heart valve replacement. Current interpretive data was last revised on 2019. Blood 01/08/2025 8:57 PM CDT 01/08/2025 9:02 PM CDT Yareli Mitchell MD LAB BLOOD ORDERABLES F inal Result Performing Organization Address [facility] Co de Phone Number [facility] [address] [facility] [place] [address] * (ABNORMAL) Renal function panel (01/08/2025 8:57 PM CDT) Sodium 136 135 - 145 mmol/L Potassium, pl 5.1(H) 3.3 - 4.9 mmol/L [facility] Chloride 99 97 - 110 mmol/L [facility] CO2 19(L) 22 - 32 mmol/L [facility] Anion gap 19(H) 2 - 15 mmol/L [facility] BUN 50(H) 6 - 25 mg/dL [facility] Creatinine 8.90(H) 0.60 - 1.10 mg/dL [facility] Glucose 420(H) 70 - 199 mg/dL [facility] Comment: Interpretive Data Fasting glucose >/= 126 [...] 2022. Calcium 7.7(L) 8.5 - 10.3 mg/dL [facility] Phosphorus, pl 6.6(H) 2.3 - 4.5 mg/dL [facility] Albumin 4.0 3.5 - 5.0 g/dL [facility] Blood 01/08/2025 8:57 PM CDT 01/08/2025 9:02 PM CDT Yareli Mitchell MD LAB BLOOD ORDERABLES F inal Result [facility] [address] [facility] Department [place] [address] * (ABNORMAL) POCT glucose (01/08/2025 7:44 PM CDT) [facility] Glucose, POC 320(H) 70 - 199 mg/dL Comment: Interpretive Data Glucose is assumed to be non-fasting. Fasting Glucose reference ranges are: 0 - 150 years: 70 mg/dL - 99 mg/dL Current interpretive data was last revised on 2013. POC Device Number [id number] [facility] Blood 01/08/2025 7:44 PM CDT 01/08/2025 7:44 PM CDT Yessenia Dominguez MD LAB POCT ORDERABLES - DEVIC E Final Result Performing Organization Address [facility] de Phone Number CERNER [facility] [address] [facility] [place] [address] * (ABNORMAL) POCT glucose (01/08/2025 6:43 PM CDT) Glucose, POC 320(H) 70 - 199 mg/dL Comment: Interpretive Data Glucose is assumed to be non-fasting. Fasting Glucose reference ranges are: 0 - 150 years: 70 mg/dL - 99 mg/dL Current interpretive data was last revised on 2013. POC Device Number [id number] CERNER [facility]JW[facility] Blood 01/08/2025 6:43 PM CDT 01/08/2025 6:43 PM CDT Viraj Olivo MD LAB POCT ORDERABLES - DEVICE Fin al Result Performing Organization Address [facility] de Phone Number HERBER BJW[facility] [address] [facility] [place] [address] * XR Foot Right 3 or More [...] severe secondary right ankle osteoarthritis. Small effusion. Dkxt-uq-onvcesdy pes planus with old healed midfoot fractures, polyarticular midfoot osteoarthritis and fragmentation. Soft tissue swelling is present. Arterial atherosclerosis is noted. Mild 1st metatarsophalangeal joint osteoarthritis. IMPRESSION: 1. Old healed distal right tibia and fibular fractures with hindfoot valgus and moderate to severe secondary right ankle osteoarthritis. 2. Odxc-qj-xztkolek right pes planus with old healed midfoot fractures, polyarticular midfoot osteoarthritis and fragmentation. THIS IS AN ELECTRONICALLY VERIFIED FINAL REPORT 01/09/2025 4:28 PM - Electronically signed by Andrei Nguyen M.D. T: Report ID: [id number] Reading Location: [id number] Procedure Note Andrei Nguyen MD - 01/09/2025 [...] severe secondary right ankle osteoarthritis. Small effusion. Yirf-wr-sicgliso pes planus with oldhealed midfoot fractures, polyarticular midfoot osteoarthritis and fragmentation. Soft tissue swelling is present. Arterial atherosclerosis is noted. Ohfq4lk metatarsophalangeal joint osteoarthritis. IMPRESSION: 1. Old healed distal right tibia and fibular fractures with hindfootvalgus and moderate to severe secondary right ankle osteoarthritis. 2. Efes-vv-orwakawv right pes planus with old healed midfoot fractures, polyarticular midfoot osteoarthritis and fragmentation. THIS IS AN ELECTRONICALLY VERIFIED FINAL REPORT 01/09/2025 4:28 PM - Electronically signed by Andrei Nguyen M.D. T: Report ID: [id number] Reading Location: [id number] us Raul Clark DO IMG XR PROCEDURES [...] severe secondary right ankle osteoarthritis. Small effusion. Lbot-hu-wpbicvqj pes planus with old healed midfoot fractures, polyarticular midfoot osteoarthritis and fragmentation. Soft tissue swelling is present. Arterial atherosclerosis is noted. Mild 1st metatarsophalangeal joint osteoarthritis. IMPRESSION: 1. Old healed distal right tibia and fibular fractures with hindfoot valgus and moderate to severe secondary right ankle osteoarthritis. 2. Vnvm-xa-rspytnsv right pes planus with old healed midfoot fractures, polyarticular midfoot osteoarthritis and fragmentation. THIS IS AN ELECTRONICALLY VERIFIED FINAL REPORT 01/09/2025 4:28 PM - Electronically signed by Andrei Nguyen M.D. T: Report ID: [id number] Reading Location: [id number] Procedure Note Andrei Nguyen MD - 01/09/2025 [...] severe secondary right ankle osteoarthritis. Small effusion. Smgd-di-zndsrfuw pes planus with oldhealed midfoot fractures, polyarticular midfoot osteoarthritis and fragmentation. Soft tissue swelling is present. Arterial atherosclerosis is noted. Bckf9fs metatarsophalangeal joint osteoarthritis. IMPRESSION: 1. Old healed distal right tibia and fibular fractures with hindfootvalgus and moderate to severe secondary right ankle osteoarthritis. 2. Gwlb-sj-jtpgxmji right pes planus with old healed midfoot fractures, polyarticular midfoot osteoarthritis and fragmentation. THIS IS AN ELECTRONICALLY VERIFIED FINAL REPORT 01/09/2025 4:28 PM - Electronically signed by Andrei Nguyen M.D. T: Report ID: [id number] Reading Location: [id number] us Raul Floresaceyani DO IMG XR PROCEDURES Final Result * POCT glucose (12/26/2024 9:47 AM CDT) Glucose, POC 197 70 - 199 mg/dL Blood 12/26/2024 9:47 AM CDT 12/26/2024 9:47 AM CDT us Young Vasquez MD LAB POCT ORDERABLES - DEVICE Final Result [facility] Department [place] [address] * Colonoscopy (12/26/2024 9:16 AM CDT) Anatomical Region Laterality Modality Other Narrative Procedure Note Young Vasquez MD - 12/26/2024 9:16 AM CDT [facility] Patient Name: Brissa Angela Procedure Date: 12/26/2024 9:16 AM Date of : 1995 Admit Type: Outpatient Age: 29 Gender: Female Attending MD: Young Vasquez M.D., Room: [facility] ENDOSCOPY ROOM 8 Note Status: Finalized [...] was passed under direct vision.The PCF [id number] endoscope was introduced through the anus and [...] MD ENDOSCOPY PROCEDURES F inal Result * MO AN ELECTIVE ENDOTRACHEAL AIRWAY, MO AN PROCEDURE PLACEHOLDER (12/26/2024 9:02 AM CDT) Narrative Federico Beltran CRNA - 12/26/2024 9:02 AM CDT Federico Beltran CRNA 12/26/2024 9:03 AM Airway Patient location: OR Urgency: elective Indications for airway management: anesthesia Difficult airway: no Staff: Supervising provider: Dylan Frias MD Placed by: LAMP TESTER AND INSPECTOR: Federico Beltran CRNA Emergent airway documentation: Risks [...] Biopsy) 12/26/2024 9:25 AM CDT Narrative PATHOLOGY [facility] - 12/27/2024 6:13 PM CDT EPIC results best viewed via link to PDF [facility] [place] [address] Note to Patients: This report may contain [...] Gender: F : 1995 (Age: 29) Address: [address] [place], [place] [id number] Hospital #: [id number] Taken:12/26/2024 Received:12/26/2024 Reported: 12/27/2024 Patient Type: [facility] Service: Gastro Location: Physician(s): Caesar Ruff M.D. [...] Surgical Pathology and Flow Cytometry Departments at [facility] as part of an ongoing food quality tester program and in compliance with federally mandated [...] Surgical Pathology and Flow Cytometry Departments of [facility]. It has not been cleared or approved by the U. S. Food and Drug Administration. IMAGES AND SCANNED DOCUMENTS, IF INCLUDED, ONLY VIEWABLE IN PDF VERSION OF REPORT us Young Vasquez MD LAB PATHOLOGY ORDERABL ES Final Result PATHOLOGY [facility] 3rd Floor [place], [place] [phone] * EGD (12/26/2024 8:55 AM CDT) Anatomical Region Laterality Modality Other Narrative Procedure Note Young Vasquez MD - 12/26/2024 8:55 AM CDT [facility] Patient Name: Brissa Angela Procedure Date: 12/26/2024 8:55 AM Date of : 1995 Admit Type: Outpatient Age: 29 Gender: Female Attending MD: Young Vasquez M.D., Room: [facility] ENDOSCOPY ROOM 8 Note Status: Finalized [...] HCG, ur, POC Negative Negative Lot Number [id number] QC Backgroud Clear Acceptable QC Control Line Acceptable Urine 12/26/2024 8:43 AM CDT Young Vasquez MD POINT OF CARE TEST ORD ERABLES Final Result * POCT glucose (12/26/2024 8:41 AM CDT) Glucose, POC 102 70 - 199 mg/dL Blood 12/26/2024 8:41 AM CDT 12/26/2024 8:41 AM CDT Young Vasquez MD LAB POCT ORDERABLES - DEVICE Final Result Performing Organization Address [facility] Co de Phone Number [facility] Department [place] [employer] [place] [address] * (ABNORMAL) POCT glucose (12/26/2024 7:53 AM CDT) Glucose, POC 67(L) 70 - 199 mg/dL Blood 12/26/2024 7:53 AM CDT 12/26/2024 7:53 AM CDT Young Vasquez MD LAB POCT ORDERABLES - DEVICE Final Result [facility] [place] [address] * (ABNORMAL) eGFR (12/26/2024 7:03 AM CDT) Pathologist [facility] [place] eGFR 8(L) >=60 mL/min/1. 73 m2 Comment: [...] MD LAB BLOOD ORDERABLES F inal Result [facility] Department [place] [address] * (ABNORMAL) Comprehensive metabolic panel (12/26/2024 7:03 AM CDT) Pathologist [facility] Sodium 129(L) 135 - 145 mmol/L Potassium, pl 4.8 3.3 - 4.9 mmol/L [facility] Comment:Hemolyzed; Potassium value may be falsely elevated by as much as 0.6-1.0 mmol/L. Suggest redraw and reanalysis. Chloride 94(L) 97 - 110 mmol/L [facility] CO2 25 22 - 32 mmol/L [facility] Anion gap 10 2 - 15 mmol/L [facility] BUN 18 6 - 25 mg/dL [facility] Creatinine 6.44(H) 0.60 - 1.10 mg/dL [facility] Glucose 110 70 - 199 mg/dL [facility] Comment: Interpretive Data Fasting glucose [...] 2022. Calcium 8.2(L) 8.5 - 10.3 mg/dL [facility] Bilirubin, total 0.4 0.1 - 1.2 mg/dL [facility] Protein, pl 7.9 6.5 - 8.5 g/dL [facility] Albumin 3.7 3.5 - 5.0 g/dL [facility] Alk phos 181(H) 40 - 130 Units/L [facility] ALT 18 7 - 45 Units/L [facility] AST 31 10 - 45 Units/L [facility] Comment:Hemolyzed; result ma y be falsely elevated Blood 12/26/2024 7:03 AM CDT 12/26/2024 7:04 AM CDT Young Vasquez MD LAB BLOOD ORDERABLES F inal Result [facility] Department [place] [address] * CT Abdomen and Pelvis Enterography W [...] signed by Mahin CORDOVA T: Report ID: [id number] Reading Location: [id number] Procedure Note Mahin Balderrama MD - 12/22/2024 [...] signed by Mahin CORDOVA T: Report ID: [id number] Reading Location: [id number] us Raul Clark DO IMG CT PROCEDURES [...] signed by Mahin CORDOVA T: Report ID: [id number] Reading Location: [id number] Procedure Note Mahin Balderrama MD - 12/22/2024 [...] signed by Mahin CORDOVA T: Report ID: [id number] Reading Location: [id number] Raul Clark DO IMG CT PROCEDURES Final [...] by Andrei Nguyen M.D. T: Report ID: [id number] Reading Location: [id number] Procedure Note Andrei Nguyen MD - 12/10/2024 [...] by Andrei Nguyen M.D. T: Report ID: [id number] Reading Location: [place] [address] Raul Clark DO IMG XR PROCEDURES Final [...] by Andrei Nguyen M.D. T: Report ID: [id number] Reading Location: [id number] Procedure Note Andrei Nguyen MD - 12/10/2024 [...] by Andrei Nguyen M.D. T: Report ID: [id number] Reading Location: [id number] us Raul Clark DO IMG XR PROCEDURES [...] PROCEDURES Fin al Result Performing Organization Address [facility]/ZIP Co de Phone Number [email or web address] * SCAN - RADIOLOGY/IMAGING (11/16/2024) Anatomical Region Laterality Modality Other Edgardo Aldridge MD Final Result * XR Outside Reference (11/16/2024 12:00 AM CDT) Narrative RAD_MELISSA_ARABELLA_MHE - 12/07/2024 1:05 PM CDT This order has been auto-finalized and does not contain a result. us Provider Transcribed Order IMG XR PROCEDURES Fin al Result Performing Organization Address [facility]/ZIP Co de Phone Number [email or web address] * CT Chest WO Contrast (11/11/2024) Anatomical Region Laterality Modality Body N/A Computed Tomogra phy Historical Provider IMG CT PROCEDURES Final R esult * (ABNORMAL) POCT glucose (11/05/2024 7:20 AM CDT) Glucose, POC 366(H) 70 - 199 mg/dL Blood 11/05/2024 7:20 AM CDT 11/05/2024 7:20 AM CDT Dutch Blake MD LAB POCT ORDERABLES - DEVICE Final Result [facility] [employer] [address] * POCT glucose (11/05/2024 2:37 AM CDT) Glucose, POC 175 70 - 199 mg/dL Blood 11/05/2024 2:37 AM CDT 11/05/2024 2:37 AM CDT Dutch Blake MD LAB POCT ORDERABLES - DEVICE Final Result Performing Organization Address [facility] Co de Phone Number HERBER [facility] [place] [employer] [place] [address] * (ABNORMAL) eGFR (11/04/2024 9:18 PM CDT) [...] PhD LAB BLOOD ORDERABLES Final Result [facility] [place] [address] * Differential, auto (11/04/2024 9:18 PM CDT) [...] K/cumm CERNER BJ Neutrophil pct 70.2 % [facility] Comment: Interpretive Data Percent cell count reference ranges are not reported, since discordance with absolute values may lead to misinterpretation of CBC data. Current Interpretive Data was last revised on 2017. Imm gran pct 0.5 % [facility] Comment: Interpretive Data Percent cell count reference ranges are not reported, since discordance with absolute values may lead to misinterpretation of CBC data. Current Interpretive Data was last revised on 2017. Lymphocyte pct 17.5 % [facility] Comment: Interpretive Data Percent cell count reference ranges are not reported, since discordance with absolute values may lead to misinterpretation of CBC data. Current Interpretive Data was last revised on 2017. Monocyte pct 7.6 % [facility] Comment: Interpretive Data Percent cell count reference ranges are not reported, since discordance with absolute values may lead to misinterpretation of CBC data. Current Interpretive Data was last revised on 2017. Eosinophil pct 4.0 % [facility] Comment: Interpretive Data Percent cell count reference ranges are not reported, since discordance with absolute values may lead to misinterpretation of CBC data. Current Interpretive Data was last revised on 2017. Basophil pct 0.2 % [facility] Comment: Interpretive Data Percent cell count reference ranges are not reported, since discordance with absolute values may lead to misinterpretation of CBC data. Current Interpretive Data was last revised on 2017. Blood 11/04/2024 9:18 PM CDT 11/04/2024 10:29 PM CDT Luciano Hayes MD PhD LAB BLOOD ORDERABLES Final Result Performing Organization Address [facility] Co de Phone Number [facility] [place] [address] * (ABNORMAL) CBC with auto differential (11/04/2024 9:18 PM CDT) [facility] WBC 8.28 3.80 - 9.90 K/cumm Hgb 8.8(L) 11.9 - 15.5 g/dL [facility] Hct 27.1(L) 35.6 - 45.5 % [facility] Plt 218 150 - 400 K/cumm [facility] MPV 11.1 9.1 - 12.3 fL [facility] RBC 3.15(L) 3.90 - 5.20 M/cumm [facility] MCV 86.0 81.3 - 96.4 fL [facility] MCH 27.9 27.1 - 33.3 pg [facility] MCHC 32.5 32.3 - 35.7 g/dL [facility] RDW CV 16.2(H) 11.1 - 14.9 % [facility] RDW SD 51.3(H) 35.7 - 48.1 fL [facility] NRBC abs 0.00 0.00 - 0.01 K/cumm [facility] Blood 11/04/2024 9:18 PM CDT 11/04/2024 10:29 PM CDT Luciano Hayes MD PhD LAB BLOOD ORDERABLES Final Result Performing Organization Address [facility]/ZIP Co de Phone Number [facility] [place] [address] * (ABNORMAL) Basic metabolic panel (11/04/2024 9:18 PM CDT) Pathologist [facility] [place] Sodium 141 135 - 145 mmol/L Potassium, pl 4.2 3.3 - 4.9 mmol/L [facility] Chloride 100 97 - 110 mmol/L [facility] CO2 30 22 - 32 mmol/L [facility] Anion gap 11 2 - 15 mmol/L [facility] BUN 13 6 - 25 mg/dL [facility] Creatinine 3.27(H) 0.60 - 1.10 mg/dL [facility] Glucose 241(H) 70 - 199 mg/dL [facility] Comment: Interpretive Data Fasting glucose [...] 2022. Calcium 8.2(L) 8.5 - 10.3 mg/dL [facility] Blood 11/04/2024 9:18 PM CDT 11/04/2024 10:06 PM CDT us Luciano Hayes MD PhD LAB BLOOD ORDERABLES Final Result Performing Organization Address [facility]/ZIP Co de Phone Number [facility] [place] [address] * (ABNORMAL) POCT glucose (11/04/2024 9:16 PM CDT) Pathologist [facility] [place] Glucose, POC 231(H) 70 - 199 mg/dL Blood 11/04/2024 9:16 PM CDT 11/04/2024 9:16 PM CDT Dutch Blake MD LAB POCT ORDERABLES - DEVICE Final Result Performing Organization Address [facility]/ZIP [place] [address] * (ABNORMAL) POCT glucose (11/04/2024 6:50 PM CDT) Glucose, POC 380(H) 70 - 199 mg/dL Blood 11/04/2024 6:50 PM CDT 11/04/2024 6:50 PM CDT Dutch Blake MD LAB POCT ORDERABLES - DEVICE Final Result Performing Organization Address [facility] [place] [address] * POCT glucose (11/04/2024 3:55 PM CDT) Glucose, POC 184 70 - 199 mg/dL Blood 11/04/2024 3:55 PM CDT 11/04/2024 3:55 PM CDT us Dutch Blake MD LAB POCT ORDERABLES - DEVICE Final Result Performing Organization Address [facility] [place] [address] * POCT glucose (11/04/2024 12:51 PM CDT) Glucose, POC 122 70 - 199 mg/dL Blood 11/04/2024 12:5 1 PM CDT 11/04/2024 12:51 PM CDT Dutch Blake MD LAB POCT ORDERABLES - DEVICE Final Result Performing Organization Address [facility] [place] [address] * POCT glucose (11/04/2024 7:16 AM CDT) Glucose, POC 107 70 - 199 mg/dL Blood 11/04/2024 7:16 AM CDT 11/04/2024 7:16 AM CDT Dutch Blake MD LAB POCT ORDERABLES - DEVICE Final Result Performing Organization Address [facility]/ZIP Co de Phone Number [facility] Department [place] [employer] [place] [address] * POCT glucose (11/04/2024 2:03 AM CDT) Glucose, POC 145 70 - 199 mg/dL Comment:Glu2: RN/MD Notified Glucose comment 1 Glu2: RN/MD Notified [facility] Blood 11/04/2024 2:03 AM CDT 11/04/2024 2:03 AM CDT Dutch Blake MD LAB POCT ORDERABLES - DEVICE Final Result Performing Organization Address [facility] Co de Phone Number [facility] [place] [address] * (ABNORMAL) eGFR (11/03/2024 10:59 PM CDT) Pathologist [facility] [place] eGFR 9(L) >=60 mL/min/1. 73 m2 Comment: [...] MD PhD LAB BLOOD ORDERABLES Final Result [facility] [place] [address] * Differential, auto (11/03/2024 10:59 PM CDT) Pathologist [facility] [place] Neutrophil abs 3.37 1.50 - 6.50 K/cumm Imm gran abs 0.01 0.00 - 0.10 K/cumm [facility] Lymphocyte abs 2.13 0.80 - 3.30 K/cumm [facility] Monocyte abs 0.62 0.20 - 0.80 K/cumm [facility] Eosinophil abs 0.34 0.00 - 0.50 K/cumm [facility] Basophil abs 0.02 0.00 - 0.10 K/cumm [facility] Neutrophil pct 51.9 % [facility] Comment: Interpretive Data Percent cell count reference ranges are not reported, since discordance with absolute values may lead to misinterpretation of CBC data. Current Interpretive Data was last revised on 2017. Imm gran pct 0.2 % [facility] Comment: Interpretive Data Percent cell count reference ranges are not reported, since discordance with absolute values may lead to misinterpretation of CBC data. Current Interpretive Data was last revised on 2017. Lymphocyte pct 32.8 % [facility] Comment: Interpretive Data Percent cell count reference ranges are not reported, since discordance with absolute values may lead to misinterpretation of CBC data. Current Interpretive Data was last revised on 2017. Monocyte pct 9.6 % [facility] Comment: Interpretive Data Percent cell count reference ranges are not reported, since discordance with absolute values may lead to misinterpretation of CBC data. Current Interpretive Data was last revised on 2017. Eosinophil pct 5.2 % [facility] Comment: Interpretive Data Percent cell count reference ranges are not reported, since discordance with absolute values may lead to misinterpretation of CBC data. Current Interpretive Data was last revised on 2017. Basophil pct 0.3 % [facility] Comment: Interpretive Data Percent cell count reference ranges are not reported, since discordance with absolute values may lead to misinterpretation of CBC data. Current Interpretive Data was last revised on 2017. Blood 11/03/2024 10:5 9 PM CDT 11/04/2024 12:07 AM CDT us Luciano Hayes MD PhD LAB BLOOD ORDERABLES Final Result [facility] Department [place] [address] * (ABNORMAL) CBC with auto differential (11/03/2024 10:59 PM CDT) WBC 6.49 3.80 - 9.90 K/cumm Hgb 8.5(L) 11.9 - 15.5 g/dL [facility] Hct 27.2(L) 35.6 - 45.5 % [facility] Plt 219 150 - 400 K/cumm [facility] MPV 11.1 9.1 - 12.3 fL [facility] RBC 3.04(L) 3.90 - 5.20 M/cumm [facility] MCV 89.5 81.3 - 96.4 fL [facility] MCH 28.0 27.1 - 33.3 pg [facility] MCHC 31.3(L) 32.3 - 35.7 g/dL [facility] RDW CV 16.4(H) 11.1 - 14.9 % [facility] RDW SD 53.7(H) 35.7 - 48.1 fL [facility] NRBC abs 0.00 0.00 - 0.01 K/cumm [facility] Blood 11/03/2024 10:5 9 PM CDT 11/04/2024 12:07 AM CDT Luciano Hayes MD PhD LAB BLOOD ORDERABLES Final Result HERBER [facility] Department [place] [address] * (ABNORMAL) Basic metabolic panel (11/03/2024 10:59 PM CDT) [facility] Sodium 141 135 - 145 mmol/L Potassium, pl 4.3 3.3 - 4.9 mmol/L [facility] Chloride 103 97 - 110 mmol/L [facility] CO2 28 22 - 32 mmol/L [facility] Anion gap 10 2 - 15 mmol/L [facility] BUN 38(H) 6 - 25 mg/dL [facility] Creatinine 6.03(H) 0.60 - 1.10 mg/dL [facility] Glucose 224(H) 70 - 199 mg/dL [facility] Comment: Interpretive Data Fasting glucose [...] 2022. Calcium 7.9(L) 8.5 - 10.3 mg/dL [facility] Blood 11/03/2024 10:5 9 PM CDT 11/04/2024 12:06 AM CDT Luciano Hayes MD PhD LAB BLOOD ORDERABLES Final Result Performing Organization Address City/[facility]/ZIP Co de Phone Number [facility] Department [place] [address] * (ABNORMAL) POCT glucose (11/03/2024 8:37 PM CDT) Glucose, POC 254(H) 70 - 199 mg/dL Comment:Glu2: RN/MD Notified Glucose comment 1 Glu2: RN/MD Notified [facility] Blood 11/03/2024 8:37 PM CDT 11/03/2024 8:37 PM CDT Dutch Blake MD LAB POCT ORDERABLES - DEVICE Final Result Performing Organization Address [facility] Co de Phone Number [facility] [place] [address] * (ABNORMAL) POCT glucose (11/03/2024 4:17 PM CDT) Glucose, POC 290(H) 70 - 199 mg/dL Blood 11/03/2024 4:17 PM CDT 11/03/2024 4:17 PM CDT us Dutch Blake MD LAB POCT ORDERABLES - DEVICE Final Result Performing Organization Address [facility] de Phone Number [facility] [place] [address] * (ABNORMAL) POCT glucose (11/03/2024 11:20 AM CDT) Glucose, POC 222(H) 70 - 199 mg/dL Comment:Glu2: RN/ Notified Glucose comment 1 Glu2: RN/MD Notified [facility] Blood 11/03/2024 11:2 0 AM CDT 11/03/2024 11:20 AM CDT us Dutch Blake MD LAB POCT ORDERABLES - DEVICE Final Result Performing Organization Address City/[facility] Co de Phone Number [facility] [place] [address] * (ABNORMAL) POCT glucose (11/03/2024 9:35 AM CDT) Glucose, POC 224(H) 70 - 199 mg/dL Blood 11/03/2024 9:35 AM CDT 11/03/2024 9:35 AM CDT Dutch Blake MD LAB POCT ORDERABLES - DEVICE Final Result Performing Organization Address [facility] Co de Phone Number [facility] [place] [employer] [place] [address] * (ABNORMAL) POCT glucose (11/03/2024 8:21 AM CDT) Glucose, POC 64(L) 70 - 199 mg/dL Blood 11/03/2024 8:21 AM CDT 11/03/2024 8:21 AM CDT Dutch Blake MD LAB POCT ORDERABLES - DEVICE Final Result Performing Organization Address [facility] Co de Phone Number [facility] [place] [address] * POCT glucose (11/03/2024 7:21 AM CDT) Glucose, POC 125 70 - 199 mg/dL Blood 11/03/2024 7:21 AM CDT 11/03/2024 7:21 AM CDT Dutch Blake MD LAB POCT ORDERABLES - DEVICE Final Result Performing Organization Address [facility] de Phone Number [facility] [place] [address] * (ABNORMAL) POCT glucose (11/03/2024 6:49 AM CDT) Glucose, POC 231(H) 70 - 199 mg/dL Blood 11/03/2024 6:49 AM CDT 11/03/2024 6:49 AM CDT Dutch Blake MD LAB POCT ORDERABLES - DEVICE Final Result Performing Organization Address [facility] de Phone Number [facility] [place] [address] * (ABNORMAL) POCT glucose (11/03/2024 5:37 AM CDT) Glucose, POC 467(C) 70 - 199 mg/dL Comment: Glu2: RN/MD Notified Critical Value Noted Glucose comment 1 Glu2: RN/MD Notified [facility] Glucose comment 2 Critical Value Noted [facility] Blood 11/03/2024 5:37 AM CDT 11/03/2024 5:37 AM CDT us Dutch Blake MD LAB POCT ORDERABLES - DEVICE Final Result Performing Organization Address [facility] de Phone Number [facility] [place] [address] * (ABNORMAL) POCT glucose (11/03/2024 3:39 AM CDT) Glucose, POC 536(C) 70 - 199 mg/dL Comment: Glu2: Critical Value Noted RN/MD Notified Glucose comment 2 RN/MD Notified [facility] Blood 11/03/2024 3:39 AM CDT 11/03/2024 3:39 AM CDT Dutch Blake MD LAB POCT ORDERABLES - DEVICE Final Result Performing Organization Address [facility] Co de Phone Number [facility] [place] [address] * (ABNORMAL) eGFR (11/03/2024 2:25 AM CDT) [...] MD PhD LAB BLOOD ORDERABLES Final Result [facility] Department [place] [address] * Differential, auto (11/03/2024 2:25 AM CDT) Neutrophil abs 3.18 1.50 - 6.50 K/cumm Imm gran abs 0.02 0.00 - 0.10 K/cumm [facility] Lymphocyte abs 1.48 0.80 - 3.30 K/cumm [facility] Monocyte abs 0.57 0.20 - 0.80 K/cumm [facility] Eosinophil abs 0.21 0.00 - 0.50 K/cumm [facility] Basophil abs 0.01 0.00 - 0.10 K/cumm [facility] Neutrophil pct 58.1 % [facility] Comment: Interpretive Data Percent cell count reference ranges are not reported, since discordance with absolute values may lead to misinterpretation of CBC data. Current Interpretive Data was last revised on 2017. Imm gran pct 0.4 % [facility] Comment: Interpretive Data Percent cell count reference ranges are not reported, since discordance with absolute values may lead to misinterpretation of CBC data. Current Interpretive Data was last revised on 2017. Lymphocyte pct 27.1 % [facility] Comment: Interpretive Data Percent cell count reference ranges are not reported, since discordance with absolute values may lead to misinterpretation of CBC data. Current Interpretive Data was last revised on 2017. Monocyte pct 10.4 % [facility] Comment: Interpretive Data Percent cell count reference ranges are not reported, since discordance with absolute values may lead to misinterpretation of CBC data. Current Interpretive Data was last revised on 2017. Eosinophil pct 3.8 % [facility] Comment: Interpretive Data Percent cell count reference ranges are not reported, since discordance with absolute values may lead to misinterpretation of CBC data. Current Interpretive Data was last revised on 2017. Basophil pct 0.2 % [facility] Comment: Interpretive Data Percent cell count reference ranges are not reported, since discordance with absolute values may lead to misinterpretation of CBC data. Current Interpretive Data was last revised on 2017. Blood 11/03/2024 2:25 AM CDT 11/03/2024 4:01 AM CDT Luciano Hayes MD PhD LAB BLOOD ORDERABLES Final Result [facility] Department [place] [address] * Critical Result Callback Chemistry (11/03/2024 2:25 AM CDT) Date Notified [id number] Time Notified 435 HERBER JIMEENZ TestName Glucose HERBER KENNEDY Called/Read Back Aaron JIMENEZ Credentials RN HERBER JIMENEZ Called By abdulkadir JIMENEZ Blood 11/03/2024 2:25 AM CDT 11/03/2024 4:02 AM CDT Luciano Hayes MD PhD LAB BLOOD ORDERABLES Final Result Performing Organization Address [facility] Co de Phone Number [facility] [place] [employer] [place] [address] * (ABNORMAL) CBC with auto differential (11/03/2024 2:25 AM CDT) [facility] WBC 5.47 3.80 - 9.90 K/cumm Hgb 8.9(L) 11.9 - 15.5 g/dL [facility] Hct 28.5(L) 35.6 - 45.5 % [facility] Plt 233 150 - 400 K/cumm [facility] MPV 10.9 9.1 - 12.3 fL [facility] RBC 3.23(L) 3.90 - 5.20 M/cumm [facility] MCV 88.2 81.3 - 96.4 fL [facility] MCH 27.6 27.1 - 33.3 pg [facility] MCHC 31.2(L) 32.3 - 35.7 g/dL [facility] RDW CV 16.4(H) 11.1 - 14.9 % [facility] RDW SD 53.1(H) 35.7 - 48.1 fL [facility] NRBC abs 0.00 0.00 - 0.01 K/cumm [facility] Blood 11/03/2024 2:25 AM CDT 11/03/2024 4:01 AM CDT Luciano Hayes MD PhD LAB BLOOD ORDERABLES Final Result Performing Organization Address City/[facility]/ZIP Co de Phone Number [facility] Department [place] [employer] [place] [address] * (ABNORMAL) Basic metabolic panel (11/03/2024 2:25 AM CDT) [facility] Sodium 135 135 - 145 mmol/L Comment:Sample investigated and found to be analytically accurate. If results do not match clinical presentation, improper collection (e.g., IV fluid contamination, improper tube type, mislabel) should be considered and re-collection recommended. Potassium, pl 4.7 3.3 - 4.9 mmol/L [facility] Comment:Sample investigated and found to be analytically accurate. If results do not match clinical presentation, improper collection (e.g., IV fluid contamination, improper tube type, mislabel) should be considered and re-collection recommended. Chloride 95(L) 97 - 110 mmol/L [facility] Comment:Sample investigated and found to be analytically accurate. If results do not match clinical presentation, improper collection (e.g., IV fluid contamination, improper tube type, mislabel) should be considered and re-collection recommended. CO2 29 22 - 32 mmol/L [facility] Comment:Sample investigated and found to be analytically accurate. If results do not match clinical presentation, improper collection (e.g., IV fluid contamination, improper tube type, mislabel) should be considered and re-collection recommended. Anion gap 11 2 - 15 mmol/L [facility] Comment:Sample investigated and found to be analytically accurate. If results do not match clinical presentation, improper collection (e.g., IV fluid contamination, improper tube type, mislabel) should be considered and re-collection recommended. BUN 21 6 - 25 mg/dL [facility] Comment:Sample investigated and found to be analytically accurate. If results do not match clinical presentation, improper collection (e.g., IV fluid contamination, improper tube type, mislabel) should be considered and re-collection recommended. Creatinine 4.22(H) 0.60 - 1.10 mg/dL [facility] Comment:Sample investigated and found to be [...] 2022. Calcium 7.4(L) 8.5 - 10.3 mg/dL [facility] Comment:Sample investigated and found to be analytically accurate. If results do not match clinical presentation, improper collection (e.g., IV fluid contamination, improper tube type, mislabel) should be considered and re-collection recommended. Blood 11/03/2024 2:25 AM CDT 11/03/2024 4:02 AM CDT us Luciano Hayes MD PhD LAB BLOOD ORDERABLES Final Result Performing Organization Address City/[facility]/ZIP Co de Phone Number [facility] Department [place] [address] * (ABNORMAL) POCT glucose (11/03/2024 2:03 AM CDT) Glucose, POC >600(C) 70 - 199 mg/dL Comment:Glu2: KADY/ Notified Glucose comment 1 Glu2: KADY/ Notified [facility] Blood 11/03/2024 2:03 AM CDT 11/03/2024 2:03 AM CDT us Dutch Blake MD LAB POCT ORDERABLES - DEVICE Final Result [facility] Department [place] [employer] [place] [address] * (ABNORMAL) POCT glucose (11/02/2024 8:42 PM CDT) Glucose, POC 204(H) 70 - 199 mg/dL Comment:Glu2: KADY/ Notified Glucose comment 1 Glu2: RN/MD Notified [facility] Blood 11/02/2024 8:42 PM CDT 11/02/2024 8:42 PM CDT Dutch Blake MD LAB POCT ORDERABLES - DEVICE Final Result Performing Organization Address [facility] de Phone Number [facility] [place] [address] * (ABNORMAL) POCT glucose (11/02/2024 6:19 PM CDT) Glucose, POC 236(H) 70 - 199 mg/dL Blood 11/02/2024 6:19 PM CDT 11/02/2024 6:19 PM CDT Dutch Blake MD LAB POCT ORDERABLES - DEVICE Final Result Performing Organization Address [facility] de Phone Number [facility] [place] [address] * (ABNORMAL) POCT glucose (11/02/2024 12:54 PM CDT) Glucose, POC 281(H) 70 - 199 mg/dL Blood 11/02/2024 12:5 4 PM CDT 11/02/2024 12:54 PM CDT Dutch Blake MD LAB POCT ORDERABLES - DEVICE Final Result Performing Organization Address [facility] [place] [address] * Post Dialysis BUN (11/02/2024 11:27 AM CDT) BUN Post 9 6 - 25 mg/dL Blood 11/02/2024 11:2 7 AM CDT 11/02/2024 12:06 PM CDT Patel-Cathy Rodri Middleton LAB BLOOD ORDERABLES Marli l Result Performing Organization Address [facility] Co de Phone Number [facility] [place] [address] * (ABNORMAL) Pre Dialysis BUN (11/02/2024 8:37 AM CDT) BUN Pre 37(H) 6 - 25 mg/dL Blood 11/02/2024 8:37 AM CDT 11/02/2024 8:49 AM CDT [facility] LAB BLOOD ORDERABLES Marli l Result Performing Organization Address [facility] de Phone Number [facility] [place] [address] * POCT glucose (11/02/2024 7:39 AM CDT) Glucose, POC 198 70 - 199 mg/dL Blood 11/02/2024 7:39 AM CDT 11/02/2024 7:39 AM CDT Dutch Blake MD LAB POCT ORDERABLES - DEVICE Final Result Performing Organization Address [facility] de Phone Number [facility] Department [place] [address] * (ABNORMAL) POCT glucose (11/02/2024 3:12 AM CDT) Glucose, POC 268(H) 70 - 199 mg/dL Blood 11/02/2024 3:12 AM CDT 11/02/2024 3:12 AM CDT Dutch Blake MD LAB POCT ORDERABLES - DEVICE Final Result Performing Organization Address [facility] Co de Phone Number [facility] Department [place] [address] * (ABNORMAL) eGFR (11/01/2024 9:45 PM CDT) Pathologist [facility] [place] eGFR 9(L) >=60 mL/min/1. 73 m2 Comment: [...] BLOOD ORDERABLES Final Result HERBER JIMENEZ [facility] Department [place] [address] * Differential, auto (11/01/2024 9:45 PM CDT) Pathologist [facility] [place] Neutrophil abs 2.74 1.50 - 6.50 K/cumm Imm gran abs 0.01 0.00 - 0.10 K/cumm [facility] Lymphocyte abs 1.86 0.80 - 3.30 K/cumm [facility] Monocyte abs 0.71 0.20 - 0.80 K/cumm [facility] Eosinophil abs 0.17 0.00 - 0.50 K/cumm [facility] Basophil abs 0.02 0.00 - 0.10 K/cumm [facility] Neutrophil pct 49.6 % [facility] Comment: Interpretive Data Percent cell count reference ranges are not reported, since discordance with absolute values may lead to misinterpretation of CBC data. Current Interpretive Data was last revised on 2017. Imm gran pct 0.2 % [facility] Comment: Interpretive Data Percent cell count reference ranges are not reported, since discordance with absolute values may lead to misinterpretation of CBC data. Current Interpretive Data was last revised on 2017. Lymphocyte pct 33.8 % [facility] Comment: Interpretive Data Percent cell count reference ranges are not reported, since discordance with absolute values may lead to misinterpretation of CBC data. Current Interpretive Data was last revised on 2017. Monocyte pct 12.9 % [facility] Comment: Interpretive Data Percent cell count reference ranges are not reported, since discordance with absolute values may lead to misinterpretation of CBC data. Current Interpretive Data was last revised on 2017. Eosinophil pct 3.1 % [facility] Comment: Interpretive Data Percent cell count reference ranges are not reported, since discordance with absolute values may lead to misinterpretation of CBC data. Current Interpretive Data was last revised on 2017. Basophil pct 0.4 % [facility] Comment: Interpretive Data Percent cell count reference ranges are not reported, since discordance with absolute values may lead to misinterpretation of CBC data. Current Interpretive Data was last revised on 2017. Blood 11/01/2024 9:45 PM CDT 11/01/2024 10:31 PM CDT us Luciano Hayes MD PhD LAB BLOOD ORDERABLES Final Result [facility] [place] [address] * (ABNORMAL) CBC with auto differential (11/01/2024 9:45 PM CDT) WBC 5.51 3.80 - 9.90 K/cumm Hgb 9.0(L) 11.9 - 15.5 g/dL [facility] Hct 28.1(L) 35.6 - 45.5 % [facility] Plt 286 150 - 400 K/cumm [facility] MPV 11.0 9.1 - 12.3 fL [facility] RBC 3.28(L) 3.90 - 5.20 M/cumm [facility] MCV 85.7 81.3 - 96.4 fL [facility] MCH 27.4 27.1 - 33.3 pg [facility] MCHC 32.0(L) 32.3 - 35.7 g/dL [facility] RDW CV 16.4(H) 11.1 - 14.9 % [facility] RDW SD 50.9(H) 35.7 - 48.1 fL [facility] NRBC abs 0.00 0.00 - 0.01 K/cumm [facility] Blood 11/01/2024 9:45 PM CDT 11/01/2024 10:31 PM CDT Luciano Hayes MD PhD LAB BLOOD ORDERABLES Final Result [facility] Department [place] [address] * (ABNORMAL) Basic metabolic panel (11/01/2024 9:45 PM CDT) Sodium 142 135 - 145 mmol/L Potassium, pl 3.9 3.3 - 4.9 mmol/L [facility] Chloride 102 97 - 110 mmol/L [facility] CO2 27 22 - 32 mmol/L [facility] Anion gap 13 2 - 15 mmol/L [facility] BUN 36(H) 6 - 25 mg/dL [facility] Creatinine 6.00(H) 0.60 - 1.10 mg/dL [facility] Glucose 197 70 - 199 mg/dL [facility] Comment: Interpretive Data Fasting glucose [...] 2022. Calcium 6.9(L) 8.5 - 10.3 mg/dL [facility] Blood 11/01/2024 9:45 PM CDT 11/01/2024 10:31 PM CDT us Luciano Hayes MD PhD LAB BLOOD ORDERABLES Final Result Performing Organization Address [facility] Co de Phone Number [facility] Department [place] [employer] [place] [address] * POCT glucose (11/01/2024 9:30 PM CDT) Glucose, POC 184 70 - 199 mg/dL Blood 11/01/2024 9:30 PM CDT 11/01/2024 9:30 PM CDT Dutch Blake MD LAB POCT ORDERABLES - DEVICE Final Result Performing Organization Address [facility] de Phone Number [facility] Department [place] [employer] [place] [address] * POCT glucose (11/01/2024 4:50 PM CDT) Glucose, POC 130 70 - 199 mg/dL Comment:Glu2: RN/MD Notified Glucose comment 1 Glu2: RN/MD Notified [facility] Blood 11/01/2024 4:50 PM CDT 11/01/2024 4:50 PM CDT Dutch Blake MD LAB POCT ORDERABLES - DEVICE Final Result Performing Organization Address [facility] Co de Phone Number [facility] [place] [address] * (ABNORMAL) POCT glucose (11/01/2024 11:49 AM CDT) Glucose, POC 201(H) 70 - 199 mg/dL Comment:Glu2: KADY/ Notified Glucose comment 1 Glu2: KADY/ Notified [facility] Blood 11/01/2024 11:4 9 AM CDT 11/01/2024 11:49 AM CDT us Dutch Blake MD LAB POCT ORDERABLES - DEVICE Final Result Performing Organization Address City/[facility]/ZIP Co de Phone Number [facility] [place] [address] * (ABNORMAL) POCT glucose (11/01/2024 8:12 AM CDT) Glucose, POC 338(H) 70 - 199 mg/dL Comment:Glu2: ARIANA Notified Glucose comment 1 Glu2: KADY/ Notified [facility] Blood 11/01/2024 8:12 AM CDT 11/01/2024 8:12 AM CDT us Dutch Blake MD LAB POCT ORDERABLES - DEVICE Final Result Performing Organization Address City/[facility]/ZIP Co de Phone Number [facility] [place] [address] * (ABNORMAL) POCT glucose (11/01/2024 1:38 AM CDT) Glucose, POC 232(H) 70 - 199 mg/dL Comment:Glu2: ARIANA Notified Glucose comment 1 Glu2: KADY/ Notified [facility] Blood 11/01/2024 1:38 AM CDT 11/01/2024 1:38 AM CDT us Dutch Blake MD LAB POCT ORDERABLES - DEVICE Final Result Performing Organization Address [facility] Co de Phone Number HERBER [facility] Department [place] [address] * (ABNORMAL) eGFR (10/31/2024 11:30 PM CDT) Pathologist [facility] [place] eGFR 14(L) >=60 mL/min/1. 73 m2 Comment: [...] BLOOD ORDERABLES Final Result Performing Organization Address City/[facility] Co de Phone Number [facility] [place] [address] * (ABNORMAL) Differential, auto (10/31/2024 11:30 PM CDT) Pathologist [facility] [place] Neutrophil abs 7.04(H) 1.50 - 6.50 K/cumm Imm gran abs 0.03 0.00 - 0.10 K/cumm [facility] Lymphocyte abs 0.83 0.80 - 3.30 K/cumm [facility] Monocyte abs 0.28 0.20 - 0.80 K/cumm [facility] Eosinophil abs 0.09 0.00 - 0.50 K/cumm [facility] Basophil abs 0.02 0.00 - 0.10 K/cumm [facility] Neutrophil pct 84.9 % [facility] Comment: Interpretive Data Percent cell count reference ranges are not reported, since discordance with absolute values may lead to misinterpretation of CBC data. Current Interpretive Data was last revised on 2017. Imm gran pct 0.4 % [facility] Comment: Interpretive Data Percent cell count reference ranges are not reported, since discordance with absolute values may lead to misinterpretation of CBC data. Current Interpretive Data was last revised on 2017. Lymphocyte pct 10.0 % [facility] Comment: Interpretive Data Percent cell count reference ranges are not reported, since discordance with absolute values may lead to misinterpretation of CBC data. Current Interpretive Data was last revised on 2017. Monocyte pct 3.4 % [facility] Comment: Interpretive Data Percent cell count reference ranges are not reported, since discordance with absolute values may lead to misinterpretation of CBC data. Current Interpretive Data was last revised on 2017. Eosinophil pct 1.1 % [facility] Comment: Interpretive Data Percent cell count reference ranges are not reported, since discordance with absolute values may lead to misinterpretation of CBC data. Current Interpretive Data was last revised on 2017. Basophil pct 0.2 % [facility] Comment: Interpretive Data Percent cell count reference ranges are not reported, since discordance with absolute values may lead to misinterpretation of CBC data. Current Interpretive Data was last revised on 2017. Blood 10/31/2024 11:3 0 PM CDT 10/31/2024 11:57 PM CDT Luciano Hayes MD PhD LAB BLOOD ORDERABLES Final Result [facility] Department [place] [address] * (ABNORMAL) CBC with auto differential (10/31/2024 11:30 PM CDT) [facility] WBC 8.29 3.80 - 9.90 K/cumm Hgb 10.4(L) 11.9 - 15.5 g/dL [facility] Hct 31.4(L) 35.6 - 45.5 % [facility] Plt 304 150 - 400 K/cumm [facility] MPV 11.2 9.1 - 12.3 fL [facility] RBC 3.72(L) 3.90 - 5.20 M/cumm [facility] MCV 84.4 81.3 - 96.4 fL [facility] MCH 28.0 27.1 - 33.3 pg [facility] MCHC 33.1 32.3 - 35.7 g/dL [facility] RDW CV 16.2(H) 11.1 - 14.9 % [facility] RDW SD 50.7(H) 35.7 - 48.1 fL [facility] NRBC abs 0.00 0.00 - 0.01 K/cumm [facility] Blood 10/31/2024 11:3 0 PM CDT 10/31/2024 11:57 PM CDT Luciano Hayes MD PhD LAB BLOOD ORDERABLES Final Result [facility] Department [place] [address] * (ABNORMAL) Basic metabolic panel (10/31/2024 11:30 PM CDT) [facility] Sodium 137 135 - 145 mmol/L Potassium, pl 3.8 3.3 - 4.9 mmol/L [facility] Chloride 97 97 - 110 mmol/L [facility] CO2 25 22 - 32 mmol/L [facility] Anion gap 15 2 - 15 mmol/L [facility] BUN 20 6 - 25 mg/dL [facility] Creatinine 4.28(H) 0.60 - 1.10 mg/dL [facility] Glucose 230(H) 70 - 199 mg/dL [facility] Comment: Interpretive Data Fasting glucose [...] 2022. Calcium 7.8(L) 8.5 - 10.3 mg/dL [facility] Blood 10/31/2024 11:3 0 PM CDT 10/31/2024 11:56 PM CDT Luciano Hayes MD PhD LAB BLOOD ORDERABLES Final Result Performing Organization Address [facility] de Phone Number [facility] Department [place] [address] * POCT glucose (10/31/2024 8:07 PM CDT) Glucose, POC 191 70 - 199 mg/dL Blood 10/31/2024 8:07 PM CDT 10/31/2024 8:07 PM CDT Dutch Blake MD LAB POCT ORDERABLES - DEVICE Final Result Performing Organization Address [facility] de Phone Number [facility] [place] [address] * POCT glucose (10/31/2024 5:26 PM CDT) Glucose, POC 108 70 - 199 mg/dL Blood 10/31/2024 5:26 PM CDT 10/31/2024 5:26 PM CDT Dutch Blake MD LAB POCT ORDERABLES - DEVICE Final Result Performing Organization Address [facility]/ZIP Co de Phone Number [facility] [place] [address] * POCT glucose (10/31/2024 1:18 PM CDT) Glucose, POC 96 70 - 199 mg/dL Blood 10/31/2024 1:18 PM CDT 10/31/2024 1:18 PM CDT Dutch Blake MD LAB POCT ORDERABLES - DEVICE Final Result Performing Organization Address [facility] Co de Phone Number [facility] [place] [address] * Hepatitis B Surface Antigen Blood (10/31/2024 9:31 AM CDT) [facility] HepBsAg Nonreactive Nonreactive Blood 10/31/2024 9:31 AM CDT 10/31/2024 9:57 AM CDT Francisco Middleton DO LAB MICROBIOLOGY - GENERA L ORDERABLES Final Result Performing Organization Address [facility] [place] [address] * POCT glucose (10/31/2024 7:50 AM CDT) Glucose, POC 79 70 - 199 mg/dL Comment:Glu2: RN/MD Notified Glucose comment 1 Glu2: RN/MD Notified [facility] Blood 10/31/2024 7:50 AM CDT 10/31/2024 7:50 AM CDT Dutch Blake MD LAB POCT ORDERABLES - DEVICE Final Result Performing Organization Address [facility]/ZIP Co de Phone Number [facility] [place] [address] * POCT glucose (10/31/2024 1:56 AM CDT) Glucose, POC 87 70 - 199 mg/dL Blood 10/31/2024 1:56 AM CDT 10/31/2024 1:56 AM CDT Dutch Blake MD LAB POCT ORDERABLES - DEVICE Final Result Performing Organization Address [facility]/ZIP Co de Phone Number [facility] Department [place] [employer] [place] [address] * (ABNORMAL) eGFR (10/30/2024 9:57 PM CDT) Pathologist [facility] [place] eGFR 8(L) >=60 mL/min/1. 73 m2 Comment: [...] BLOOD ORDERABLES Final Result Performing Organization Address [facility]/ZIP Co de Phone Number [facility] Department [place] [address] * Differential, auto (10/30/2024 9:57 PM CDT) Neutrophil abs 2.96 1.50 - 6.50 K/cumm Imm gran abs 0.02 0.00 - 0.10 K/cumm [facility] Lymphocyte abs 2.18 0.80 - 3.30 K/cumm [facility] Monocyte abs 0.55 0.20 - 0.80 K/cumm [facility] Eosinophil abs 0.29 0.00 - 0.50 K/cumm [facility] Basophil abs 0.03 0.00 - 0.10 K/cumm [facility] Neutrophil pct 49.1 % [facility] Comment: Interpretive Data Percent cell count reference ranges are not reported, since discordance with absolute values may lead to misinterpretation of CBC data. Current Interpretive Data was last revised on 2017. Imm gran pct 0.3 % [facility] Comment: Interpretive Data Percent cell count reference ranges are not reported, since discordance with absolute values may lead to misinterpretation of CBC data. Current Interpretive Data was last revised on 2017. Lymphocyte pct 36.2 % [facility] Comment: Interpretive Data Percent cell count reference ranges are not reported, since discordance with absolute values may lead to misinterpretation of CBC data. Current Interpretive Data was last revised on 2017. Monocyte pct 9.1 % [facility] Comment: Interpretive Data Percent cell count reference ranges are not reported, since discordance with absolute values may lead to misinterpretation of CBC data. Current Interpretive Data was last revised on 2017. Eosinophil pct 4.8 % [facility] Comment: Interpretive Data Percent cell count reference ranges are not reported, since discordance with absolute values may lead to misinterpretation of CBC data. Current Interpretive Data was last revised on 2017. Basophil pct 0.5 % [facility] Comment: Interpretive Data Percent cell count reference ranges are not reported, since discordance with absolute values may lead to misinterpretation of CBC data. Current Interpretive Data was last revised on 2017. Blood 10/30/2024 9:57 PM CDT 10/30/2024 10:39 PM CDT Luciano Hayes MD PhD LAB BLOOD ORDERABLES Final Result [facility] Department [place] [address] * Beta-hydroxybutyrate (10/30/2024 9:57 PM CDT) [facility] Beta-Hydroxybut yrate 0.1 0.0 - 0.5 mmol/L Blood 10/30/2024 9:57 PM CDT 10/30/2024 10:28 PM CDT Luciano Hayes MD PhD LAB BLOOD ORDERABLES Edited Result - Final Performing Organization Address [facility] Co de Phone Number [facility] [place] [address] * (ABNORMAL) CBC with auto differential (10/30/2024 9:57 PM CDT) [facility] WBC 6.03 3.80 - 9.90 K/cumm Hgb 8.9(L) 11.9 - 15.5 g/dL [facility] Hct 27.6(L) 35.6 - 45.5 % [facility] Plt 277 150 - 400 K/cumm [facility] MPV 11.0 9.1 - 12.3 fL [facility] RBC 3.17(L) 3.90 - 5.20 M/cumm [facility] MCV 87.1 81.3 - 96.4 fL [facility] MCH 28.1 27.1 - 33.3 pg [facility] MCHC 32.2(L) 32.3 - 35.7 g/dL [facility] RDW CV 16.4(H) 11.1 - 14.9 % [facility] RDW SD 52.3(H) 35.7 - 48.1 fL [facility] NRBC abs 0.00 0.00 - 0.01 K/cumm [facility] Blood 10/30/2024 9:57 PM CDT 10/30/2024 10:39 PM CDT Luciano Hayes MD PhD LAB BLOOD ORDERABLES Final Result [facility] Department [place] [address] * (ABNORMAL) Basic metabolic panel (10/30/2024 9:57 PM CDT) [facility] Sodium 138 135 - 145 mmol/L Potassium, pl 4.2 3.3 - 4.9 mmol/L [facility] Chloride 100 97 - 110 mmol/L [facility] CO2 26 22 - 32 mmol/L [facility] Anion gap 12 2 - 15 mmol/L [facility] BUN 45(H) 6 - 25 mg/dL [facility] Creatinine 6.91(H) 0.60 - 1.10 mg/dL [facility] Glucose 252(H) 70 - 199 mg/dL [facility] Comment: Interpretive Data Fasting glucose [...] 2022. Calcium 8.1(L) 8.5 - 10.3 mg/dL [facility] Blood 10/30/2024 9:57 PM CDT 10/30/2024 10:39 PM CDT Luciano Hayes MD PhD LAB BLOOD ORDERABLES Final Result Performing Organization Address [facility]/ZIP Co de Phone Number [facility] Department [place] [address] * (ABNORMAL) POCT glucose (10/30/2024 8:29 PM CDT) Glucose, POC 361(H) 70 - 199 mg/dL Comment:Glu2: RN/MD Notified Glucose comment 1 Glu2: RN/MD Notified [facility] Blood 10/30/2024 8:29 PM CDT 10/30/2024 8:29 PM CDT Dennis Cadet MD LAB POCT ORDERABLES - DEV ICE Final Result Performing Organization Address [facility]/ZIP Co de Phone Number [facility] [place] [address] * (ABNORMAL) POCT glucose (10/30/2024 5:10 PM CDT) Glucose, POC 292(H) 70 - 199 mg/dL Blood 10/30/2024 5:10 PM CDT 10/30/2024 5:10 PM CDT Dennis Cadet MD LAB POCT ORDERABLES - DEV ICE Final Result Performing Organization Address [facility] Co de Phone Number [facility] [place] [employer] [place] [address] * (ABNORMAL) POCT glucose (10/30/2024 1:08 PM CDT) Glucose, POC 251(H) 70 - 199 mg/dL Blood 10/30/2024 1:08 PM CDT 10/30/2024 1:08 PM CDT Luciano Hayes MD PhD LAB POCT ORDERABLES - DEVIC E Final Result Performing Organization Address [facility] Co de Phone Number [facility] [place] [address] * (ABNORMAL) POCT glucose (10/30/2024 11:19 AM CDT) Glucose, POC 270(H) 70 - 199 mg/dL Blood 10/30/2024 11:1 9 AM CDT 10/30/2024 11:19 AM CDT Luciano Hayes MD PhD LAB POCT ORDERABLES - DEVIC E Final Result Performing Organization Address [facility] Co de Phone Number [facility] [place] [address] * (ABNORMAL) eGFR (10/30/2024 9:10 AM CDT) [...] ORDERABLES Fi nal Result Performing Organization Address [facility]/ZIP Co de Phone Number [facility] Department [place] [address] * (ABNORMAL) Beta-hydroxybutyrate (10/30/2024 9:10 AM CDT) Beta-Hydroxybut yrate 0.6(H) 0.0 - 0.5 mmol/L Blood 10/30/2024 9:10 AM CDT 10/30/2024 9:23 AM CDT Dennis Cadet MD LAB BLOOD ORDERABLES Marli l Result [facility] Department [place] [address] * (ABNORMAL) Basic metabolic panel (10/30/2024 9:10 AM CDT) [facility] Sodium 139 135 - 145 mmol/L Potassium, pl 4.7 3.3 - 4.9 mmol/L [facility] Comment:Hemolyzed; Potassium value may be falsely elevated by as much as 0.6-1.0 mmol/L. Suggest redraw and reanalysis. Chloride 102 97 - 110 mmol/L [facility] CO2 24 22 - 32 mmol/L [facility] Anion gap 13 2 - 15 mmol/L [facility] BUN 37(H) 6 - 25 mg/dL [facility] Creatinine 5.68(H) 0.60 - 1.10 mg/dL [facility] Glucose 214(H) 70 - 199 mg/dL [facility] Comment: Interpretive Data Fasting glucose [...] 2022. Calcium 7.9(L) 8.5 - 10.3 mg/dL [facility] Blood 10/30/2024 9:10 AM CDT 10/30/2024 9:27 AM CDT Crystal Schuster MD LAB BLOOD ORDERABLES Fi nal Result Performing Organization Address [facility]/ZIP Co de Phone Number [facility] [place] [address] * POCT glucose (10/30/2024 8:07 AM CDT) Glucose, POC 172 70 - 199 mg/dL Blood 10/30/2024 8:07 AM CDT 10/30/2024 8:07 AM CDT Luciano Hayes MD PhD LAB POCT ORDERABLES - DEVIC E Final Result Performing Organization Address [facility] Co de Phone Number [facility] [place] [address] * POCT glucose (10/30/2024 6:31 AM CDT) Glucose, POC 173 70 - 199 mg/dL Blood 10/30/2024 6:31 AM CDT 10/30/2024 6:31 AM CDT Dennis Cadet MD LAB POCT ORDERABLES - DEV ICE Final Result Performing Organization Address [facility]/ZIP Co de Phone Number [facility] [place] [address] * POCT glucose (10/30/2024 4:02 AM CDT) Glucose, POC 88 70 - 199 mg/dL Blood 10/30/2024 4:02 AM CDT 10/30/2024 4:02 AM CDT Dennis Cadet MD LAB POCT ORDERABLES - DEV ICE Final Result Performing Organization Address [facility]/ZIP Co de Phone Number [facility] [place] [employer] [place] [address] * POCT glucose (10/30/2024 2:30 AM CDT) Glucose, POC 95 70 - 199 mg/dL Blood 10/30/2024 2:30 AM CDT 10/30/2024 2:30 AM CDT Dennis Cadet MD LAB POCT ORDERABLES - DEV ICE Final Result Performing Organization Address [facility]/ZIP Co de Phone Number [facility] [place] [address] * (ABNORMAL) eGFR (10/30/2024 2:24 AM CDT) Pathologist [facility] [place] eGFR 10(L) >=60 mL/min/1. 73 m2 Comment: [...] ORDERABLES Fi nal Result Performing Organization Address [facility]/ZIP Co de Phone Number [facility] Department [place] [address] * (ABNORMAL) Differential, auto (10/30/2024 2:24 AM [...] [facility] Neutrophil pct 68.8 % [facility] Comment: Interpretive Data Percent cell count reference ranges are not reported, since discordance with absolute values may lead to misinterpretation of CBC data. Current Interpretive Data was last revised on 2017. Imm gran pct 0.3 % [facility] Comment: Interpretive Data Percent cell count reference ranges are not reported, since discordance with absolute values may lead to misinterpretation of CBC data. Current Interpretive Data was last revised on 2017. Lymphocyte pct 21.2 % [facility] Comment: Interpretive Data Percent cell count reference ranges are not reported, since discordance with absolute values may lead to misinterpretation of CBC data. Current Interpretive Data was last revised on 2017. Monocyte pct 8.6 % [facility] Comment: Interpretive Data Percent cell count reference ranges are not reported, since discordance with absolute values may lead to misinterpretation of CBC data. Current Interpretive Data was last revised on 2017. Eosinophil pct 0.8 % [facility] Comment: Interpretive Data Percent cell count reference ranges are not reported, since discordance with absolute values may lead to misinterpretation of CBC data. Current Interpretive Data was last revised on 2017. Basophil pct 0.3 % [facility] Comment: Interpretive Data Percent cell count reference ranges are not reported, since discordance with absolute values may lead to misinterpretation of CBC data. Current Interpretive Data was last revised on 2017. Blood 10/30/2024 2:24 AM CDT 10/30/2024 2:44 AM CDT Sandra Eddy MD LAB BLOOD ORDERABLES Final Resul t Performing Organization Address [facility] Co de Phone Number [facility] Department [place] [employer] [place] [address] * (ABNORMAL) CBC with auto differential (10/30/2024 2:24 AM CDT) WBC 10.83(H) 3.80 - 9.90 K/cumm Hgb 9.3(L) 11.9 - 15.5 g/dL [facility] Hct 28.7(L) 35.6 - 45.5 % [facility] Plt 292 150 - 400 K/cumm [facility] MPV 11.0 9.1 - 12.3 fL [facility] RBC 3.34(L) 3.90 - 5.20 M/cumm [facility] MCV 85.9 81.3 - 96.4 fL [facility] MCH 27.8 27.1 - 33.3 pg [facility] MCHC 32.4 32.3 - 35.7 g/dL [facility] RDW CV 16.9(H) 11.1 - 14.9 % [facility] RDW SD 52.8(H) 35.7 - 48.1 fL [facility] NRBC abs 0.00 0.00 - 0.01 K/cumm [facility] Blood 10/30/2024 2:24 AM CDT 10/30/2024 2:44 AM CDT us Sandra Eddy MD LAB BLOOD ORDERABLES Final Resul t Performing Organization Address [facility]/ZIP Co de Phone Number [facility] [place] [address] * (ABNORMAL) Hemoglobin A1c (10/30/2024 2:24 AM CDT) Hgb A1C 8.8(H) 4.0 - 5.6 % Estimated Average Glucose 206 mg/dL [facility] Comment: The ADA recommends reporting [...] ORDERABLES Marli l Result Performing Organization Address [facility] Co de Phone Number [facility] [place] [address] * Blood gas, venous (10/30/2024 2:24 AM CDT) pH, Venous 7.34 7.32 - 7.43 PCO2, Venous 50 40 - 50 mmHg [facility] PO2, Venous 41 mmHg [facility] Comment: Interpretive Data No Reference Range Established Current Interpretive Data was last revised on 2017. HCO3 Venous, Calculated 28 20 - 30 mmol/L [facility] BE, venous 1 mmol/L [facility] Comment: Interpretive Data No Reference Range Established Current Interpretive Data was last revised on 2017. Blood 10/30/2024 2:24 AM CDT 10/30/2024 2:31 AM CDT Crystal Schuster MD LAB BLOOD ORDERABLES Fi nal Result Performing Organization Address [facility]/ZIP Co de Phone Number [facility] Department [place] [employer] [place] [address] * (ABNORMAL) Basic metabolic panel (10/30/2024 2:24 AM CDT) Sodium 143 135 - 145 mmol/L Potassium, pl 3.6 3.3 - 4.9 mmol/L [facility] Chloride 106 97 - 110 mmol/L [facility] CO2 28 22 - 32 mmol/L [facility] Anion gap 9 2 - 15 mmol/L [facility] BUN 35(H) 6 - 25 mg/dL [facility] Creatinine 5.56(H) 0.60 - 1.10 mg/dL [facility] Glucose 112 70 - 199 mg/dL [facility] Comment: Interpretive Data Fasting glucose [...] 2022. Calcium 7.8(L) 8.5 - 10.3 mg/dL [facility] Blood 10/30/2024 2:24 AM CDT 10/30/2024 2:43 AM CDT Crystal Schuster MD LAB BLOOD ORDERABLES Fi nal Result [facility] Department [place] [address] * POCT glucose (10/30/2024 12:01 AM CDT) Glucose, POC 181 70 - 199 mg/dL Blood 10/30/2024 12:0 1 AM CDT 10/30/2024 12:01 AM CDT us Dennis Cadet MD LAB POCT ORDERABLES - DEV ICE Final Result Performing Organization Address [facility]/ZIP Co de Phone Number [facility] [place] [address] * (ABNORMAL) POCT glucose (10/29/2024 10:01 PM CDT) Glucose, POC 297(H) 70 - 199 mg/dL Blood 10/29/2024 10:0 1 PM CDT 10/29/2024 10:01 PM CDT Dennis Cadet MD LAB POCT ORDERABLES - DEV ICE Final Result Performing Organization Address [facility] Co de Phone Number [facility] Department [place] [address] * (ABNORMAL) POCT glucose (10/29/2024 8:26 PM CDT) Pathologist [facility] [place] Glucose, POC 290(H) 70 - 199 mg/dL Blood 10/29/2024 8:26 PM CDT 10/29/2024 8:26 PM CDT Dennis Cadet MD LAB POCT ORDERABLES - DEV ICE Final Result Performing Organization Address [facility] de Phone Number [facility] Department [place] [address] * (ABNORMAL) eGFR (10/29/2024 8:13 PM CDT) [facility] eGFR 11(L) >=60 mL/min/1. 73 m2 Comment: [...] MD LAB BLOOD ORDERABLES Final R esult [facility] [place] [address] * Lipid panel (10/29/2024 8:13 PM CDT) [...] revised on 2017. Triglycerides 92 <=149 mg/dL [facility] Comment: Interpretive Data Ages < or [...] on 2017. HDL 49 >=40 mg/dL [facility] Comment: Interpretive Data Ages < or [...] 2017. LDL, calculated 58 <=129 mg/dL [facility] Comment: Interpretive Data Ages < or [...] revised on 2023. Non-HDL Cholesterol 75 mg/dL [facility] Comment: Interpretive Data Ages < [...] last revised on 2017. Chol/HDL ratio 3 [facility] Blood 10/29/2024 8:13 PM CDT 10/29/2024 8:27 PM CDT Dennis Cadet MD LAB BLOOD ORDERABLES Marli l Result [facility] Department [place] [address] * (ABNORMAL) Basic metabolic panel (10/29/2024 8:13 PM CDT) Sodium 143 135 - 145 mmol/L Potassium, pl 4.1 3.3 - 4.9 mmol/L [facility] Chloride 102 97 - 110 mmol/L [facility] CO2 23 22 - 32 mmol/L [facility] Anion gap 18(H) 2 - 15 mmol/L [facility] BUN 31(H) 6 - 25 mg/dL [facility] Creatinine 5.00(H) 0.60 - 1.10 mg/dL [facility] Glucose 266(H) 70 - 199 mg/dL [facility] Comment: Interpretive Data Fasting glucose [...] 2022. Calcium 7.7(L) 8.5 - 10.3 mg/dL [facility] Blood 10/29/2024 8:13 PM CDT 10/29/2024 8:27 PM CDT us Ari Us MD LAB BLOOD ORDERABLES Final R esult [facility] [place] [address] * (ABNORMAL) POCT glucose (10/29/2024 4:00 PM CDT) Glucose, POC 290(H) 70 - 199 mg/dL Comment:Glu2: RN/ Notified Glucose comment 1 Glu2: RN/MD Notified [facility] Blood 10/29/2024 4:00 PM CDT 10/29/2024 4:00 PM CDT us Ciaran Medina MD LAB POCT ORDERABLES - DEVICE Final Result Performing Organization Address [facility] Co de Phone Number [facility] [place] [employer] [place] [address] * (ABNORMAL) POCT glucose (10/29/2024 12:58 PM CDT) Glucose, POC 299(H) 70 - 199 mg/dL Blood 10/29/2024 12:5 8 PM CDT 10/29/2024 12:58 PM CDT us Nathan Moore MD LAB POCT ORDERABLES - DE VICE Final Result Performing Organization Address [facility] de Phone Number [facility] [employer] [place] [address] * (ABNORMAL) POCT glucose (10/29/2024 11:55 AM CDT) Glucose, POC 309(H) 70 - 199 mg/dL Comment:Glu2: RN/ Notified Glucose comment 1 Glu2: RN/MD Notified [facility] Blood 10/29/2024 11:5 5 AM CDT 10/29/2024 11:55 AM CDT us Nathan Moore MD LAB POCT ORDERABLES - DE VICE Final Result Performing Organization Address [facility] Co de Phone Number [facility] [place] [employer] [place] [address] * XR Chest PA Lateral 2 Views [...] DE VICE Final Result Performing Organization Address City/[facility]/ZIP Co de Phone Number [facility] [place] [address] * Potassium, whole blood (10/29/2024 11:03 AM CDT) Potassium, bld 4.2 3.3 - 4.9 mmol/L Blood 10/29/2024 11:0 3 AM CDT 10/29/2024 11:15 AM CDT us Ari Us MD LAB BLOOD ORDERABLES Final R esult Performing Organization Address [facility] Co de Phone Number [facility] [place] [address] * (ABNORMAL) eGFR (10/29/2024 11:03 AM CDT) [...] LAB BLOOD ORDERABLES Final R esult [facility] [place] [address] * (ABNORMAL) Differential, auto (10/29/2024 11:03 AM CDT) Neutrophil abs 8.42(H) 1.50 - 6.50 K/cumm Imm gran abs 0.04 0.00 - 0.10 K/cumm [facility] Lymphocyte abs 1.17 0.80 - 3.30 K/cumm [facility] Monocyte abs 0.52 0.20 - 0.80 K/cumm [facility] Eosinophil abs 0.17 0.00 - 0.50 K/cumm [facility] Basophil abs 0.04 0.00 - 0.10 K/cumm [facility] Neutrophil pct 81.3 % [facility] Comment: Interpretive Data Percent cell count reference ranges are not reported, since discordance with absolute values may lead to misinterpretation of CBC data. Current Interpretive Data was last revised on 2017. Imm gran pct 0.4 % [facility] Comment: Interpretive Data Percent cell count reference ranges are not reported, since discordance with absolute values may lead to misinterpretation of CBC data. Current Interpretive Data was last revised on 2017. Lymphocyte pct 11.3 % [facility] Comment: Interpretive Data Percent cell count reference ranges are not reported, since discordance with absolute values may lead to misinterpretation of CBC data. Current Interpretive Data was last revised on 2017. Monocyte pct 5.0 % [facility] Comment: Interpretive Data Percent cell count reference ranges are not reported, since discordance with absolute values may lead to misinterpretation of CBC data. Current Interpretive Data was last revised on 2017. Eosinophil pct 1.6 % [facility] Comment: Interpretive Data Percent cell count reference ranges are not reported, since discordance with absolute values may lead to misinterpretation of CBC data. Current Interpretive Data was last revised on 2017. Basophil pct 0.4 % [facility] Comment: Interpretive Data Percent cell count reference ranges are not reported, since discordance with absolute values may lead to misinterpretation of CBC data. Current Interpretive Data was last revised on 2017. Blood 10/29/2024 11:0 3 AM CDT 10/29/2024 11:21 AM CDT Nathan Moore MD LAB BLOOD ORDERABLES Fin al Result Performing Organization Address [facility]/ZIP Co de Phone Number [facility] [place] [address] * (ABNORMAL) CBC with auto differential (10/29/2024 11:03 AM CDT) WBC 10.36(H) 3.80 - 9.90 K/cumm Hgb 11.5(L) 11.9 - 15.5 g/dL [facility] Hct 35.0(L) 35.6 - 45.5 % [facility] Plt 345 150 - 400 K/cumm [facility] MPV 11.2 9.1 - 12.3 fL [facility] RBC 4.14 3.90 - 5.20 M/cumm [facility] MCV 84.5 81.3 - 96.4 fL [facility] MCH 27.8 27.1 - 33.3 pg [facility] MCHC 32.9 32.3 - 35.7 g/dL [facility] RDW CV 16.6(H) 11.1 - 14.9 % [facility] RDW SD 50.8(H) 35.7 - 48.1 fL [facility] NRBC abs 0.00 0.00 - 0.01 K/cumm [facility] Blood 10/29/2024 11:0 3 AM CDT 10/29/2024 11:21 AM CDT Nathan Moore MD LAB BLOOD ORDERABLES Fin al Result Performing Organization Address [facility]/ZIP Co de Phone Number [facility] [place] [address] * Lipase (10/29/2024 11:03 AM CDT) Pathologist [facility] Lipase 49 10 - 99 Units/L Blood 10/29/2024 11:0 3 AM CDT 10/29/2024 11:21 AM CDT Ari Us MD LAB BLOOD ORDERABLES Final R esult Performing Organization Address [facility] [place] [address] * (ABNORMAL) Hemoglobin A1c (10/29/2024 11:03 AM CDT) [facility] Hgb A1C 9.1(H) 4.0 - 5.6 % Estimated Average Glucose 214 mg/dL [facility] Comment: The ADA recommends reporting [...] ORDERABLES Marli l Result Performing Organization Address [facility] [place] [address] * Blood gas, venous (10/29/2024 11:03 AM CDT) [facility] pH, Venous 7.35 7.32 - 7.43 PCO2, Venous 50 40 - 50 mmHg [facility] PO2, Venous 41 mmHg [facility] Comment: Interpretive Data No Reference Range Established Current Interpretive Data was last revised on 2017. HCO3 Venous, Calculated 28 20 - 30 mmol/L [facility] BE, venous 1 mmol/L [facility] Comment: Interpretive Data No Reference Range Established Current Interpretive Data was last revised on 2017. Blood 10/29/2024 11:0 3 AM CDT 10/29/2024 11:15 AM CDT Air Us MD LAB BLOOD ORDERABLES Final R esult Performing Organization Address [facility] de Phone Number [facility] [place] [address] * (ABNORMAL) Hepatic function panel (10/29/2024 11:03 AM CDT) Pathologist [facility] Bilirubin, total 0.4 0.1 - 1.2 mg/dL Bilirubin, direct <0.2 0.1 - 0.3 mg/dL [facility] Protein, pl 8.5 6.5 - 8.5 g/dL [facility] Albumin 4.4 3.5 - 5.0 g/dL [facility] Alk phos 336(H) 40 - 130 Units/L [facility] ALT 42 7 - 45 Units/L [facility] AST 39 10 - 45 Units/L [facility] Blood 10/29/2024 11:0 3 AM CDT 10/29/2024 11:21 AM CDT us Ari Us MD LAB BLOOD ORDERABLES Final R esult Performing Organization Address [facility] de Phone Number [facility] [place] [address] * (ABNORMAL) Basic metabolic panel (10/29/2024 11:03 AM CDT) Pathologist [facility] Sodium 138 135 - 145 mmol/L Potassium, pl 4.0 3.3 - 4.9 mmol/L [facility] Chloride 94(L) 97 - 110 mmol/L [facility] CO2 26 22 - 32 mmol/L [facility] Anion gap 18(H) 2 - 15 mmol/L [facility] BUN 28(H) 6 - 25 mg/dL [facility] Creatinine 4.75(H) 0.60 - 1.10 mg/dL [facility] Glucose 358(H) 70 - 199 mg/dL [facility] Comment: Interpretive Data Fasting glucose [...] 2022. Calcium 8.5 8.5 - 10.3 mg/dL [facility] Blood 10/29/2024 11:0 3 AM CDT 10/29/2024 11:21 AM CDT us Ari Us MD LAB BLOOD ORDERABLES Final R esult [facility] Department [place] [employer] [place] [address] * (ABNORMAL) POCT ketone, blood (10/29/2024 10:22 AM CDT) Beta-Hydroxybut yrate, POC 1.2(H) 0.0 - 0.5 mmol/L Blood 10/29/2024 10:2 2 AM CDT 10/29/2024 10:22 AM CDT us Nathan Moore MD LAB POCT ORDERABLES - DE VICE Final Result [facility] [place] [employer] [place] [address] * (ABNORMAL) POCT glucose (10/29/2024 10:21 AM CDT) Glucose, POC 274(H) 70 - 199 mg/dL Blood 10/29/2024 10:2 1 AM CDT 10/29/2024 10:21 AM CDT Nathan Moore MD LAB POCT ORDERABLES - DE VICE Final Result Performing Organization Address [facility] Co de Phone Number [facility] [place] [address] * TSH (01/09/2024 3:52 PM CDT) Thyroid Stimulating Hormone 2.46 0.30 - 4.20 mcIUnit/mL Blood 01/09/2024 3:52 PM CDT 01/09/2024 4:46 PM CDT Sailaja Ramos MD LAB BLOOD ORDERABLES Final Result Performing Organization Address [facility] Co az Phone Number [facility] [place] [address] * Hepatitis panel, acute Blood (12/24/2023 7:26 AM CDT) [facility] Hep A IgM Nonreactive Nonreactive Comment: Interpretive Data: If Hep A IgM Ab is reported as Equivocal, a new sample should be drawn in two weeks for testing. Current interpretive data was last revised on 19. Hep B core IgM Nonreactive Nonreactive [facility] Comment: Interpretive Data If HepB Core IgM Ab is reported as Equivocal, a new sample should be drawn in two weeks for testing. Current interpretive data was last revised on 19. Hep C Ab Nonreactive Nonreactive [facility] Comment: Antibodies to HCV not detected. [...] GENERAL OR DERABLES Final Result [facility] GUILLAUME [address] 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 Source: [facility]. 08/20/2024 CP-CUTTER FIRST Comment:Added from external infection. Source: [facility]. Kleb pneumo [employer] 10/31/2024 10/31/2024 [place] [address] [facility] MEDICARE [place] MEDICARE IDPA Advance Directives For more information, please contact: [phone] * Full Code (Latest Code Status on [...] 2:03 PM 06/28/2024 7:52 PM Care Teams Air Support Operations Operator Relationship Specialty Start Date End Date Edgardo Aldridge MD [address] [facility] 2 [address] 4 [place] [address] PCP - General Family Medicine 04/02/23 Andrei hCaves MD PhD [address] [address] Referring Physician General Surgery 03/17/23 Olivia Phelps MD [address] [facility] 2 [address] 4 [place] [address] Consulting Physician Nephrology 03/17/23 Odilon Tellez MD [address] [facility] 2 or 4 [place] [address] Referring Physician Nephrology 11/12/23 Ayaka Thomas MD [address] [facility] [address] [place] [address] Fellow Internal Medicine 12/17/23 Yumi Jones NP [address] [facility] [address] [place] [address] Nurse Practitioner Hospice and Palliative Medicine 08/16/23 Odilon Tellez MD [address] [facility] [address] [place] [address] Consulting Physician Nephrology 12/05/24 Jaimie Glez, RN [address] [place] [address] [address] [place] [address] Risk Control Manager 01/29/25
--- OUTSIDE RECORDS SUMMARY | 2025-01-29 16:43 | XMS_ITS | Encounter Summary ---
Author Organization [facility] Healthcare Address [address] [place] [address] Care Team Providers Care Incinerator Attendant Name Role Phone Andrei Chaves MD PhD Unavailable [phone] Olivia Phelps MD Unavailable [phone] Edgardo Aldridge MD Primary Care Provider [phone] Odilon Tellez MD Unavailable [phone] Ayaka Thomas MD Unavailable [phone] Yumi Jones NP Unavailable [phone] Odilon Tellez MD Unavailable [phone] Jaimie Glez RN Unavailable [phone] Reason for Visit * Reason Onset Date Comments Scheduling Appointments 01/29/2025 Encounter Details Date Type Department Care Team (Late st Contact Info) Description 01/29/2025 Telephone [facility] [address] [facility] 3rd Floor [address] [place] [address] Chyna Kay MA Scheduling Appointments [...] any clubs o r organizations such as protestant groups, unions, fraternal or athletic groups, or [...] Date Recorded PHQ-2 Total Score 0 01/09/2025 [facility] Occupat ional [facility] - Occupational Stress Questionnaire Answer Date [...] any time in the past 12 m [facility], were you homeless or living in a fpc (including now)? No 11/07/2024 Social Connection and [...] any clubs o r organizations such as protestant groups, unions, fraternal or athletic groups, or [...] any time in the past 12 m [facility], were you homeless or living in a fpc (including now)? 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 Source: [facility]. 08/20/2024 CP-MACHINE TAPER Comment:Added from external infection. Source: [facility]. Kleb pneumo [facility] 10/31/2024 10/31/2024 documented as of this encounter Care Teams Incinerator Attendant Relationship Specialty Start Date End Date Edgardo Aldridge MD [address] [facility] 2 [address] 4 [place] [address] PCP - General Family Medicine 04/02/23 Andrei Chaves MD PhD [address] [facility] [address] [place] [address] Referring Physician General Surgery 03/17/23 Olivia Phelps MD [address] [facility] 2 [address] 4 [place] [address] Consulting Physician Nephrology 03/17/23 Odilon Tellez MD [address] [facility] 2 [address] 4 [place] [address] Referring Physician Nephrology 11/12/23 Ayaka Thomas MD [address] [facility] 2 [address] 4 [place] [address] Fellow Internal Medicine 12/17/23 Yumi Jones COMIC ARTIST [address] [facility] [address] [place] [address] Nurse Practitioner Hospice and Palliative Medicine 08/16/23 Odilon Tellez MD [address] [facility] [address] [place] [address] Consulting Physician Nephrology 12/05/24 Jaimie Glez, KADY [address] [place] [address] [address] [place] [address] Broker 01/29/25 documented as of this encounter
--- OUTSIDE RECORDS SUMMARY | 2025-01-29 16:43 | XMS_ITS | Encounter Summary ---
Author Organization [facility] Healthcare Address [address] [place] [address] Care Team Providers Care Bookseamer Blindstitch Name Role Phone Andrei Chaves MD PhD Unavailable [phone] Olivia Phelps MD Unavailable [phone] Edgardo Aldridge MD Primary Care Provider Odilon Tellez MD Unavailable [phone] Ayaka Thomas MD Unavailable [phone] Yumi Jones NP Unavailable [phone] Odilon Tellez MD Unavailable [phone] Jaimie Glez RN Unavailable [phone] Encounter Details Date Type Department Care Team (Late st Contact Info) Description 01/29/2025 Telephone [facility] Medical Group Family Medicine at [address] [place] [phone] Edgardo Aldridge MD [address] [place] [address] [address] [place] [address] Social History Tobacco Use Types [...] any clubs o r organizations such as tenriism groups, unions, fraternal or athletic groups, or [...] 01/09/2025 [facility]at ional Health - [...] place to sleep or slept in a care home (including now)? No 08/30/2023 PHQ-9 Answer [...] in the past 12 m [facility], were you homeless or living in a care home (including now)? No 11/07/2024 Social Connection and [...] attend chur ch or quaker services? Never 01/17/2025 Do you belong to any clubs o r organizations such as tenriism groups, unions, fraternal or athletic groups, or [...] were you homeless or living in a care home (including now)? 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 Source: [facility]. 08/20/2024 CP-PALEOLOGIST Comment:Added from external infection. Source: [facility]. Kleb pneumo C 10/31/2024 10/31/2024 documented as of this encounter Care Teams Bookseamer Blindstitch Relationship Specialty Start Date End Date Edgardo Aldridge MD [address] [facility] 2 or 4 [place] [address] PCP - General Family Medicine 04/02/23 Andrei Chaves MD PhD [address] [facility] [address] [place] [address] Referring Physician General Surgery 03/17/23 Olivia Phelps MD [address] [facility] [address] 4 [place] [address] Consulting Physician Nephrology 03/17/23 Odilon Tellez MD [address] [facility] [address] 4 [place] [address] Referring Physician Nephrology 11/12/23 Ayaka Thomas MD [address] [facility] [address] [place] [address] Fellow Internal Medicine 12/17/23 Yumi Jones THIRD OFFICER [address] [facility] [address] [place] [address] Nurse Practitioner Hospice and Palliative Medicine 08/16/23 Odilon Tellez MD [address] [facility] [address] [place] [address] Consulting Physician Nephrology 12/05/24 Jaimie Glez, KADY [address] [place] [address] [address] [place] [address] Supervisor Engine Assembly 01/29/25 documented as of this encounter
--- OUTSIDE RECORDS SUMMARY | 2025-01-29 16:43 | XMS_ITS | Encounter Summary ---
Author Organization [facility] Address [address] [place] [address] Phone Care Team Providers Care Box Nailer Name Role Phone Andrei Chaves MD PhD Unavailable [phone] Olivia Phelps MD Unavailable [phone] Edgardo Aldridge MD Primary Care Provider Odilon Tellez MD Unavailable [phone] Ayaka Thomas MD Unavailable [phone] Yumi Jones NP Unavailable [phone] Mendel Bowling RN Unavailable [phone] Odilon Tellez MD Unavailable [phone] Mavis Barahona RN Unavailable [phone] Mahnaz Garcia RN Unavailable Jaimie Glez RN Unavailable [phone] Encounter Details Date Type Department Care Team (Late st Contact Info) Description 12/28/2024 Results Follow-Up [facility] Medicine Gastroenterology [address] [facility] Advanced Medicine 12th [place] [address] [place] [phone] Young Vasquez MD 1 [facility] [address] [place] [address] Surgical pathology Social History Tobacco Use Types Packs/Day Years Used Date Smoking Tobacco: Never Smokeless Tobacco: Never Alcohol Use Standard Drinks/Week Comments Not Currently 0 (1 standard drink = 0.6 oz pur e alcohol) [facility] Utilities Answer Date Recorded In [...] often do you attend chur ch or advent services? Never 11/07/2024 Do you belong to [...] Date Recorded PHQ-2 Total Score 0 11/01/2024 [facility] of Occupat ional Health - Occupational Stress [...] No 11/07/2024 Housing Stability Vital Sign Answer Pabol e Recorded In the last 12 months, [...] in the past [address] 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 Source: [facility]. 08/20/2024 CP-MULTIPLE COIL WINDER Comment:Added from external infection. Source: [facility]. Kleb pneumo [facility] 10/31/2024 10/31/2024 documented as of this encounter Care Teams Box Nailer Relationship Specialty Start Date End Date Edgardo Aldridge MD [address] [facility] [address] 4 [place] [address] PCP - General Family Medicine 04/02/23 Andrei Chaves MD PhD [address] [facility] [address] [place] [address] Referring Physician General Surgery 03/17/23 Olivia Phelps MD [address] [facility] [address] [place] [address] Consulting Physician Nephrology 03/17/23 Odilon Tellez MD [address] [facility] [address] 4 [place] [address] Referring Physician Nephrology 11/12/23 Ayaka Thomas MD [address] [facility] [address] or 4 [place] [address] Fellow Internal Medicine 12/17/23 Yumi Jones NP [address] [place] [address] [address] [place] [address] Nurse Practitioner Hospice and Palliative Medicine 08/16/23 Mendel Bowling, RN [address] [place] [address] [address] [place] [address] Senior Clerk 11/07/24 01/04/25 Odilon Tellez MD [address] [facility] [address] [place] [address] Consulting Physician Nephrology 12/05/24 Mavis Barahona, RN [address] [facility] [address] [place] [address] Trade Mark Examiner 12/20/24 Mahnaz Garcia RN [address] [place] [address] [address] [place] [address] Senior Clerk 01/15/25 01/15/25 Jaimie Glez RN [address] [place] [address] [address] [place] [address] Senior Clerk 01/29/25 documented as of this encounter
--- OUTSIDE RECORDS SUMMARY | 2025-01-29 16:43 | XMS_ITS | Encounter Summary ---
Author Organization [facility] Facility Care Team Providers Care Supervisor Engraving Name Role Phone Unknown, Notinfile Primary Care Provider Unavail able Lay Villalta MD Primary Care Provider [phone] Tremayne Kebede MD Unavailable [phone] Georgia Mcbride MERCHANDISE EXECUTIVE Unavailable [phone] Miscellaneous, Not In File Unavailable Unava ilable Eun Camacho Primary Care Provider + Cony Pemberton FULL FASHIONED GARMENT KNITTER Unavailable [phone] Antonette Vernon RN Unavailable [phone] Andrei Chaves MD PhD Unavailable [phone] Olivia Phelps MD Unavailable [phone] Edgardo Aldridge MD Primary Care Provider [phone] Odilon Tellez MD Unavailable [phone] Miscellaneous, Not In File Unavailable Unava ilable Ct Boggs FULL FASHIONED GARMENT KNITTER Unavailable [phone] Odilon Tellez MD Unavailable [phone] Tracey Felix RN Unavailable [phone] Ayaka Thomas MD Unavailable [phone] Yumi Jones NP Unavailable [phone] TosinRogersRuthy FULL FASHIONED GARMENT KNITTER Unavailable Unavaila ble Feli Boggs RN Unavailable [phone] Mendel Bowling RN Unavailable [phone] Leslie Baptiste [facility] Unavailable Mendel Bowling RN Unavailable [phone] Odilon Tellez MD Unavailable [phone] Mavis Barahona RN Unavailable [phone] Mahnaz Garcia RN Unavailable [phone] Jaimie Glez RN Unavailable [phone] Encounter Details Date Type Department Care Team (Latest Contact Info) Description 02/01/2017 Orders Only [facility] CLINCONV Provider, MD Sotero [address] [place] [address] Social History Tobacco Use Types Packs/Day Years Used Date Smoking Tobacco: Never Comments Unknown Sex and Gender Information Value Date Recorded Sex Assigned at Not on file 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 difficile suspected 06/24/2023 06/24/202306/26 6:03 AM CDT COVID: Suspected 06/27/2023 06/27/2023 06/27/2023 7:07 PM CDT COVID: Suspected 07/10/2023 07/10/2023 07/10/2023 6:50 AM CDT COVID: Suspected 07/13/2023 07/13/2023 07/13/2023 9:45 PM CDT MRSA Comment:MRSA Isolation Detention 06/21/24 10/23/2023 02/09/2024 06/21/2024 6:[address] C. 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 Source: [facility]. 08/20/2024 Carbapenemase, Unspecified Comment:Added from external infection. Source: [facility]. Kleb pneumo KPC 09/23/2024 10/31/2024 3:07 PM C DT CP-SOUND DESIGNER Comment:Added from external infection. Source: [facility]. Kleb pneumo KPC 10/31/2024 10/31/2024 documented as of this encounter Care Teams Supervisor Engraving Relationship Specialty Start Date End Date Unknown, Notinfile PCP - General 12/28/16 08/23/18 Lay Villalta MD PCP - General Family Medicine 08/24/18 07/17/21 Eun Camacho PA PCP - General Family Medicine 07/18/21 03/08/23 Edgardo Aldridge MD [address] [facility] 2 or 4 [place] [id number] PCP - General Family Medicine 04/02/23 Tremayne Kebede MD Consulting Physician Gastroenterology 02/05/20 3 Georgia Mcbride LPN [address] [place] [address] [address] [place] [address] ACO Care Rare/Endangered Species Specialist 11/28/20 12/19/20 Miscellaneous, Not In File 07/17/21 03/16/23 Cony Pemberton, FULL FASHIONED GARMENT KNITTER [address] [facility] ([facility]) Mailstop [phone] [place] [address] SHOP Outpatient Brooch Maker Novelty 12/07/22 12/07/22 Antonette Vernon, KADY [address] [place] [address] SHOP Outpatient Brooch Maker Novelty 12/08/22 01/05/23 Andrei Chaves MD PhD [address] [facility] [address] [place] [address] Referring Physician General Surgery 03/17/23 Olivia Phelps MD [address] [employer] [facility] [address] 2 or 4 [place], [place] [address] Consulting Physician Nephrology 03/17/23 Odilon Tellez MD [address]15 [facility] [address] or 4 [place], [place] [address] Consulting Physician Nephrology 05/01/23 12/04/24 Miscellaneous, Not In File 07/08/23 01/24/24 Ct Boggs, [facility] [address] [facility] ([facility]) Mailstop [phone] [place] [address] SHOP Outpatient Brooch Maker Novelty 07/09/23 08/05/23 Odilon Tellez MD [address] [employer] [address] 4 [place] [address] Referring Physician Nephrology 11/12/23 Tracey Felix, KADY [address] [place] [address] Leather Seasoner 11/12/23 11/17/23 Ayaka Thomas MD [address] [facility] [address] [place] [address] Fellow Internal Medicine 12/17/23 Yumi Jones NP 1 [facility] [address] [place] [address] Nurse Practitioner Hospice and Palliative Medicine 08/16/23 Ruthy Lehay LCSW Cooperative Manager 12/31/23 02/22/24 Feli Boggs, RN [address] [place] [address] [address] [place] [address] Dental Service Technician 12/31/23 01/02/24 Mendel Bowling, KADY [address] [place] [address] [address] [place] [address] Dental Service Technician 01/03/24 03/23/24 Leslie Baptiste, [address] [place] [address] Pharmacist Pharmacy 01/13/24 02/03/24 Mendel Bowling, KADY [address] [place] [address] [address] [place] [address] Dental Service Technician 11/07/24 01/04/25 Odilon Tellez MD [address] [facility] [address] [place] [address] Consulting Physician Nephrology 12/05/24 Mavis Barahona, RN [address] [facility] [address] [place] [address] Leather Seasoner 12/20/24 01/08/25 Mahnaz Garcia, KADY [address] [place] [address] [address] [place] [address] Dental Service Technician 01/15/25 01/15/25 Jaimie Glez RN [address] [place] [address] [address] [place] [address] Dental Service Technician 01/29/25 documented as of this encounter
--- OUTSIDE RECORDS SUMMARY | 2025-01-29 16:43 | XMS_ITS | Encounter Summary ---
Author Organization [facility] Facility Care Team Providers Care Senior Digital Designer Name Role Phone Unknown, Notinfile Primary Care Provider Unavail able Lay Villalta MD Primary Care Provider [phone] Tremayne Kebede MD Unavailable [phone] Georgia Mcbride FEED CRUSHER Unavailable [phone] Miscellaneous, Not In File Unavailable Unava ilable Eun Camacho Primary Care Provider + Cony Pemberton BUN MACHINE OPERATOR Unavailable [phone] Antonette Vernon RN Unavailable [phone] Andrei Chaves MD PhD Unavailable [phone] Olivia Phelps MD Unavailable [phone] Edgardo Aldridge MD Primary Care Provider [phone] Odilon Tellez MD Unavailable [phone] Miscellaneous, Not In File Unavailable Unava ilable Ct Boggs BUN MACHINE OPERATOR Unavailable [phone] Odilon Tellez MD Unavailable [phone] Tracey Felix RN Unavailable [phone] Ayaka Thomas MD Unavailable [phone] Yumi Jones NP Unavailable [phone] TosinRuthy wilder BUN MACHINE OPERATOR Unavailable Unavaila ble Feli Boggs RN Unavailable [phone] Mendel Bowling RN Unavailable [phone] Leslie Baptiste [facility] Unavailable Mendel Bowling RN Unavailable [phone] Odilon Tellez MD Unavailable [phone] Mavis Barahona RN Unavailable [phone] Mahnaz Garcia RN Unavailable [phone] Jaimie Glez RN Unavailable [phone] Encounter Details Date Type Department Care Team (Latest Contact Info) Description 06/10/2018 Orders Only MMG CLINCONV Provider, MD Sotero [address] [place] [address] Social History Tobacco Use Types Packs/Day Years Used Date Smoking Tobacco: Never Comments Unknown Sex and Gender Information Value Date Recorded Sex Assigned at Not on file Legal Sex Female 9:16 AM CULLET CRUSHER AND WASHER Gender Identity Not on file Sexual Orientation Not on file documented as of this encounter Plan of Treatment Not on file documented as of this encounter Procedures Procedure Name Priority Date/Time Associated Diagnosis Comments SCAN - LABS 06/15/2018 12:00 AM CULLET CRUSHER AND WASHER documented in this encounter Results * SCAN - LABS (06/15/2018 12:00 AM CULLET CRUSHER AND WASHER) Narrative 06/15/2018 12:00 AM CULLET CRUSHER AND WASHER Ordered by an unspecified provider. Historical Provider [...] CDT COVID19 02/02/2020 02/02/2020 02/19/2020 3:05 AM CULLET CRUSHER AND WASHER COVID: Recovered Comment:Added based on recent COVID [...] COVID: Suspected 06/15/2023 06/15/2023 06/15/2023 5:53 PM CULLET CRUSHER AND WASHER C. difficile suspected 06/24/2023 06/24/202306/26 6:03 AM CDT COVID: Suspected 06/27/2023 06/27/2023 06/27/2023 7:07 PM CDT COVID: Suspected 07/10/2023 07/10/2023 07/10/2023 6:50 AM CDT COVID: Suspected 07/13/2023 07/13/2023 07/13/2023 9:45 PM CDT MRSA Comment:MRSA Isolation Skilled Nursing 06/21/24 10/23/2023 02/09/2024 06/21/2024 6:[address] C. 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 Source: [facility]. 08/20/2024 Carbapenemase, Unspecified Comment:Added from external infection. Source: [facility]. Kleb pneumo KPC 09/23/2024 10/31/2024 3:07 PM C DT CP-FLAVORING OIL FILTERER Comment:Added from external infection. Source: [facility]. Kleb pneumo KPC 10/31/2024 10/31/2024 documented as of this encounter Care Teams Senior Digital Designer Relationship Specialty Start Date End Date Unknown, Notinfile PCP - General 12/28/16 08/23/18 Lay Villalta MD PCP - General Family Medicine 08/24/18 07/17/21 Eun Camacho PA PCP - General Family Medicine 07/18/21 03/08/23 Edgardo Aldridge MD 9515 [facility] 2 or 4 [place] [address] PCP - General Family Medicine 04/02/23 Tremayne Kebede MD Consulting Physician Gastroenterology 02/05/20 3 Georgia Mcbride LPN [address] [facility] [address] [place] [address] ACO Care Singe Winder 11/28/20 12/19/20 Miscellaneous, Not In File 07/17/21 03/16/23 Cony Pemberton LCSW 7[address] [facility] ([facility]) Mailstop [phone] [place] [address] SHOP Outpatient Strategy Intern 12/07/22 12/07/22 Antonette Vernon, KADY [address] [place] [address] SHOP Outpatient Strategy Intern 12/08/22 01/05/23 Andrei Chaves MD PhD [address] [facility] [address] [place] [address] Referring Physician General Surgery 03/17/23 Olivia Phelps MD [address] [employer] [address] [place], [place] [address] Consulting Physician Nephrology 03/17/23 Odilon Tellez MD [address] [employer] [address] [place], [place] [address] Consulting Physician Nephrology 05/01/23 12/04/24 Miscellaneous, Not In File 07/08/23 01/24/24 Ct Boggs, [facility] 45[address] [facility] ([facility] Mailstop [phone] [place] [address] SHOP Outpatient Strategy Intern 07/09/23 08/05/23 Odilon Tellez MD [address] [employer] [address] 4 [place], [place] [address] Referring Physician Nephrology 11/12/23 Tracey Felix, KADY [address] [place] [address] Electronic Masking System Operator 11/12/23 11/17/23 Ayaka Thomas MD [address] [facility] [address] [place] [address] Fellow Internal Medicine 12/17/23 Yumi Jones NP [address] [facility] [address] [place] [address] Nurse Practitioner Hospice and Palliative Medicine 08/16/23 Ruthy Leahy LCSW Gem Setter 12/31/23 02/22/24 Feli Boggs, RN [address] [place] [address] [address] [place] [address] Logger Driving Horses 12/31/23 01/02/24 Mendel Bowling, KADY [address] [place] [address] [address] [place] [address] Logger Driving Horses 01/03/24 03/23/24 Leslie Baptiste, [address] [place] [address] Pharmacist Pharmacy 01/13/24 02/03/24 Mendel Bowling, KADY [address] [place] [address] DR [address]ONY [address] [place] [address] Logger Driving Horses 11/07/24 01/04/25 Odilon Tellez MD [address] [facility] [address] [place] [address] Consulting Physician Nephrology 12/05/24 Mavis Barahona, RN [address] [facility] [address] [place] [address] Electronic Masking System Operator 12/20/24 01/08/25 Mahnaz Garcia, RN [address] [place] [address] [address] [place] [address] Logger Driving Horses 01/15/25 01/15/25 Jaimie Glez RN [address] [place] [address] [address] [place] [address] Logger Driving Horses 01/29/25 documented as of this encounter
--- OUTSIDE RECORDS SUMMARY | 2025-01-29 16:43 | XMS_ITS | Encounter Summary ---
Author Organization [facility] Healthcare Address [address] [place] [address] Care Team Providers Care Field Director Name Role Phone Andrei Chaves MD PhD Unavailable [phone] Olivia Phelps MD Unavailable [phone] Edgardo Aldridge MD Primary Care Provider [phone] Odilon Tellez MD Unavailable [phone] Ayaak Thomas MD Unavailable Yumi Jones NP Unavailable [phone] Mendel Bowling RN Unavailable [phone] Odilon Tellez MD Unavailable [phone] Mavis Barahona RN Unavailable [phone] Mahnaz Garcia RN Unavailable Jaimie Glez RN Unavailable Encounter Details Date Type Department Care Team (Late st Contact Info) Description 12/29/2024 Results Follow-Up [facility] Family Medicine at [address] [place] [address] Edgardo Aldridge MD [address] [place] [address] [address] [place] [address] SCAN - RADIOLOGY/IMAGING Social History [...] often do you attend chur ch or synagogue services? Never 11/07/2024 Do you belong to any clubs o r organizations such as worship groups, unions, fraternal or athletic groups, or [...] Recorded PHQ-2 Total Score 0 11/01/2024 [facility] [...] any time in the past 12 m [facility], were you homeless or living in [...] on file Legal Sex Female 9:16 AM BILINGUAL COUNTER SALES RETAIL Gender Identity Not on file Sexual Orientation Not on file documented as of this encounter Plan of Treatment Not on file documented as of this encounter Visit Diagnoses Not on filedocumented in this encounter Additional Health Concerns Infection Onset Date Last Indicated 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 Source: [facility]. 08/20/2024 CP-VACCINE KEY CUSTOMER LEADER Comment:Added from external infection. Source: [facility]. Kleb pneumo C 10/31/2024 10/31/2024 documented as of this encounter Care Teams Field Director Relationship Specialty Start Date End Date Edgardo Aldridge MD 9515 [facility] [address] or 4 [place] [address] PCP - General Family Medicine 04/02/23 Andrei Chaves MD PhD [address] [facility] [address] [place] [address] Referring Physician General Surgery 03/17/23 Olivia Phelps MD [address] [facility] [address] 4 [place] [address] Consulting Physician Nephrology 03/17/23 Odilon Tellez MD [address] [facility] [address] 4 [place] [address] Referring Physician Nephrology 11/12/23 Ayaka Thomas MD [address] [facility] [address] 4 [place] [address] Fellow Internal Medicine 12/17/23 Yumi Jones INVESTMENT BANKING ANALYST [address] [facility] [address] [place] [address] Nurse Practitioner Hospice and Palliative Medicine 08/16/23 Mendel Bowling, KADY [address] [place] [address] [address] [place] [address] Lieutenant Fire Fighter 11/07/24 01/04/25 Odilon Tellez MD [address] [facility] [address] [place] [address] Consulting Physician Nephrology 12/05/24 Mavis Barahona, RN 45[address] [facility] [address] [place] [address] Pin Drafter 12/20/24 Mahnaz Garcia RN [address] [place] [address] [address] [place] [address] Lieutenant Fire Fighter 01/15/25 01/15/25 Jaimie Glez RN [address] [place] [address] [address] [place] [address] Lieutenant Fire Fighter 01/29/25 documented as of this encounter
--- OUTSIDE RECORDS SUMMARY | 2025-01-29 16:43 | XMS_ITS | Encounter Summary ---
Author Organization [facility] Address [address] [place] [address] Phone Care Team Providers Care Radio Survey Worker Name Role Phone Andrei Chaves MD PhD Unavailable [phone] Olivia Phelps MD Unavailable [phone] Edgardo Aldridge MD Primary Care Provider [phone] Odilon Tellez MD Unavailable [phone] Ayaka Thomas MD Unavailable [phone] Yumi Jones NP Unavailable [phone] Mendel Bowling RN Unavailable [phone] Odilon Tellez MD Unavailable [phone] Mavis Barahona RN Unavailable [phone] Mahnaz Garcia RN Unavailable Jaimie Glez RN Unavailable [phone] Encounter Details Date Type Department Care Team (Late st Contact Info) Description 12/26/2024 Results Follow-Up [facility] Medicine Gastroenterology [address] [facility] 12th [place] [address] [place] [address] Young Vasquez MD 1 [facility] [address] [place] [address] CT Abdomen and Pelvis Enterography W Contrast Social History Tobacco Use Types Packs/Day Years Used Date Smoking Tobacco: Never Smokeless Tobacco: Never Alcohol Use Standard Drinks/Week Comments Not Currently 0 (1 standard drink = 0.6 oz pur e alcohol) [facility] Utilities Answer Date Recorded In the past 12 months has e electric, gas, oil, or water [employer] threatened to shut off services in your [...] Recorded PHQ-2 Total Score 0 11/01/2024 [facility]at [facility] [...] any time in the past 12 m [facility], were you homeless or living in a long term (including now)? 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 Source: [facility]. 08/20/2024 CP-ICE CREAM VENDOR Comment:Added from external infection. Source: [facility]. Kleb pneumo [facility] 10/31/2024 10/31/2024 documented as of this encounter Care Teams Radio Survey Worker Relationship Specialty Start Date End Date Edgardo Aldridge MD [address] [facility] [address] or 4 [place] [address] PCP - General Family Medicine 04/02/23 Andrei Chaves MD PhD [address] [facility] [address] [address] Referring Physician General Surgery 03/17/23 Olivia Phelps MD [address] [facility] [address] or 4 [place] [address] Consulting Physician Nephrology 03/17/23 Odilon Tellez MD [address] [facility] [address] or 4 [place] [address] Referring Physician Nephrology 11/12/23 Ayaka Thomas MD [address] [facility] [address] or 4 [place] [address] Fellow Internal Medicine 12/17/23 Yumi Jones BLOCK INSPECTOR [address] [place] [address] [address] [place] [address] Nurse Practitioner Hospice and Palliative Medicine 08/16/23 Mendel Bowling, RN [address] [place] [address] [address] [place] [address] Sheet Metal Technician 11/07/24 01/04/25 Odilon Tellez MD [address] [facility] [address] [place] [address] Consulting Physician Nephrology 12/05/24 Mavis Barahona, RN 4590 [facility] [address] [place] [address] Retort Kiln Burner 12/20/24 Mahnaz Garcia, KADY [address] [place] [address] [address] [place] [address] Sheet Metal Technician 01/15/25 01/15/25 Jaimie Glez, KADY [address] [place] [address] [address] [place] [address] Sheet Metal Technician 01/29/25 documented as of this encounter
--- OUTSIDE RECORDS SUMMARY | 2025-01-29 16:43 | XMS_ITS | Encounter Summary ---
Author Organization [facility] Address [facility] [place] [address] Care Team Providers Care Oil Scout Name Role Phone Lay Cota MD Primary Care Provider [phone] Edgardo Aldridge MD Primary Care Provider [phone] Keely Ugalde STEEL FINISHER Unavailable [phone] Keely Ugalde STEEL FINISHER Unavailable [phone] Odilon Tellez MD Unavailable [phone] Leonardo Washburn MD Unavailable [phone] Young Vasquez MD Unavailable [phone] Andrei Chaves MD Unavailable [phone] Encounter Details Date Type Department Care Team (Late st Contact Info) Description 03/07/2024 Prep for Procedure [facility] [place], [place] [id number] Juan Long MD [address] [place] [id number] Social History Tobacco Use Types Packs/Day Years Used Date Smoking Tobacco: Never Smokeless Tobacco: Never Alcohol Use Standard Drinks/Week Comments Not Currently 0 (1 standard drink = 0.6 oz pur e alcohol) occasionally [facility] Utilities Answer Date Recorded In the past 12 months has [employer] electric, gas, oil, or water company threatened [...] How often do you attend chur or orthodoxy services? Never 12/31/2022 Do you belong to any clubs o r organizations such as lutheran groups, unions, fraternal or athletic groups, or [...] Recorded Patient Health Questionnaire-2 Score 0 12/31/2022 [facility] [...] place to sleep or slept in a chcf (including now)? No 03/20/2023 Housing Stability Vital [...] 1:51 PM Dunia Wilson RN Active * [place] Suicide Severity Rating Scale (Screener/Recent Self-Report) Question [...] st Contact Info) Description 05/24/2025 10:20 AM PLASTIC PRESS MOLDER Office Visit [facility] - [facility] [address] [facility] [place] [phone] Leonardo Washburn MD [address] [facility] [address] [place], [place] [id number] documented as of this encounter Goals Goal Patient Goal Type Associated Problems Recent Progress Patient-Stated? Author HOME TO INDEPENDENT LIVING. General No Chiquis Alicia, RN Patient will return to prior living situation and remain independent in ADLs upon discharge from hospital Lifestyle No Jeri Lara LSW Health - patient able to perform ADLs independently Lifestyle No Latrice Marie, NARCOTICS DETECTIVE Health - patient able to perform ADLs independently Lifestyle No Latrice Marie, NARCOTICS DETECTIVE documented as of this encounter Results * (ABNORMAL) BASIC METABOLIC PANEL (03/07/2024 11:47 AM PLASTIC PRESS MOLDER) GLUCOSE 121(H) 70 - 99 MG/DL 03/07/2024 1:[address] [facility] BUN 36(H) 7 - 18 MG/DL 03/07/2024 1:[address] [facility] CREATININE S/P/B 5.63(HH) 0.55 - 1.02 MG/DL 03/07/2024 1:[address] [facility] Comment: Critical Result(s) Called at: 13:22:32 on 03/07/2024 by: ADRIANA WALLACE to and read back by:BILL HAQUE SODIUM S/P/B 138 136 - 145 MMOL/L 03/07/2024 1:[address] [facility] POTASSIUM S/P/B 3.9 3.5 - 5.1 MMOL/L 03/07/2024 1:[address] [facility] CHLORIDE S/P/B 108 97 - 115 MMOL/L 03/07/2024 1:[address] [facility] CO2 22.3 21 - 32 MMOL/L 03/07/2024 1:23 PM [facility] CALCIUM S/P/B 7.7(L) 8.5 - 10.1 MG/DL 03/07/2024 1:23 PM [facility] ANION GAP 7.7 2 - 10 MMOL/L 03/07/2024 1:23 PM [facility] BUN CREATININE RATIO 6.4 6 - 26 03/07/2024 1:23 PM [facility] GFR ESTIMATE 10(L) >90 ML/MIN/1.7 3 M2 03/07/2024 1:23 PM [facility] Comment: NOTE: eGFR is not calculated for patients <18 years of age or gender unknown. This is an estimated GFR calculation using the new CKD EPI creatinine equation without race and so does not require a correction factor for race. This estimated GFR should not be used for calculating drug doses. 03/07/2024 11:4 7 AM PLASTIC PRESS MOLDER Mehnaz Boogie [facility] Final Resu lt [facility] [address] [place] [address], * (ABNORMAL) CBC W/DIFF AUTOMATED (03/07/2024 11:47 AM PLASTIC PRESS MOLDER) WBC 7.02 4.5 - 11.0 x10'3/uL 03/07/2024 12:00 PM [facility] RBC 4.76 4.20 - 5.40 x10'6/uL 03/07/2024 12:00 PM [facility] HGB 11.6(L) 12.0 - 16.0 G/DL 03/07/2024 12:00 PM [facility] HCT 37.7(L) 38.0 - 48.0 % 03/07/2024 12:00 PM [facility] MCV 79.2(L) 81.0 - 99.0 FL 03/07/2024 12:00 PM [facility] MCH 24.4(L) 27.0 - 31.0 PG 03/07/2024 12:00 PM [facility] MCHC 30.8(L) 32.0 - 36.0 G/DL 03/07/2024 12:00 PM [facility] RDW 16.5(H) 11.5 - 14.5 % 03/07/2024 12:00 PM [facility] PLT 369 130 - 400 x10'3/uL 03/07/2024 12:00 PM [facility] MPV 10.1 9.3 - 12.2 FL 03/07/2024 12:00 PM [facility] DIFFERENTIAL TYPE AUTOMATED DIFFERENTIAL 03/07/2024 12:00 PM [facility] NEUTROPHILS % 55.0 % 03/07/2024 12:00 PM [facility] LYMPHOCYTES % 29.6 % 03/07/2024 12:00 PM [facility] MONOCYTES % 7.5 % 03/07/2024 12:00 PM [facility] EOSINOPHILS 7.3 % 03/07/2024 12:00 PM [facility] BASOPHILS 0.3 % 03/07/2024 12:00 PM [facility] IMMATURE GRANS % 0.3 % 03/07/20 12:00 PM [facility] ABS. NEUTROPHILS 3.86 1.80 - 7.70 x10'3/uL 03/07/2024 12:[address] [facility] ABS. LYMPHOCYTES 2.08 1.00 - 4.80 x10'3/uL 03/07/2024 12:[address] [facility] ABS. MONOCYTES 0.53 0.24 - 0.86 x10'3/uL 03/07/2024 12:[address] [facility] ABS. EOSINOPHILS 0.51(H) 0.04 - 0.36 x10'3/uL 03/07/2024 12:[address] [facility] ABS. BASOPHILS 0.02 0.01 - 0.08 x10'3/uL 03/07/2024 12:[address] [facility] ABS. IMMATURE GRANULOCYTES 0.02 0.00 - 0.49 x10'3/uL 03/07/2024 12:[address] [facility] 03/07/2024 11:4 7 AM PLASTIC PRESS MOLDER Mehnaz Boogie [facility] Final Resu lt [facility] [address] [place] [address], * (ABNORMAL) HEMOGLOBIN, GLYCOSYLATED (03/07/2024 11:47 AM PLASTIC PRESS MOLDER) HGB A1C 13.5(H) <5.7 % 03/07/2024 1:55 [address] [facility] Comment: ADA GUIDELINES 2010 5.7 TO 6.4% INCREASED RISK OF DIABETES > OR = 6.5% CONSISTENT WITH DIABETES ESTIMATED AVG GLUCOSE 341 mg/dL 03/07/2024 1:55 [address] [facility] 03/07/2024 11:4 7 AM PLASTIC PRESS MOLDER us Juan Long MD LABORATORY Final Result [facility] [address] [place] [address], [place] [phone] documented in this encounter Visit Diagnoses Diagnosis Encounter for adjustment and management of vascular access device- Primary Gastroparesis Diabetes mellitus ([facility]) Type II or unspecified type diabetes mellitus without mention of complication, not stated as uncontrolled Uncontrolled type 1 diabetes mellitus with hyperglycemia, with long-term current use of insulin ([facility]) shelter (current) use of insulin ([facility]) documented in this encounter Additional Health Concerns Infection Onset Date Last Indicated Resolved Time MRSA Comment:04/27/23 +MRSA Urine 10/23/23 +MRSA from [facility]. Added from external infection. Source: [facility]. 02/09/24 +MRSA Nares from [facility]. 05/08/24 +MRSA Nares 10/23/2023 12/04/2024 COVID-19 Rule Out 03/12/2024 03/12/2024 03/12/2024 3:51 PM PLASTIC PRESS MOLDER COVID-19 Rule Out 04/04/2024 04/04/2024 04/04/2024 5:10 PM PLASTIC PRESS MOLDER COVID-19 Rule Out 04/24/2024 04/24/2024 04/24/2024 8:24 PM PLASTIC PRESS MOLDER RSV 04/24/2024 04/24/2024 05/04/2024 12:3 2 AM PLASTIC PRESS MOLDER COVID-19 Rule Out 05/08/2024 05/08/2024 05/08/2024 4:15 PM PLASTIC PRESS MOLDER Tuberculosis Rule-Out 05/09/2024 05/09/20242024 10:09 AM PLASTIC PRESS MOLDER COVID-19 Rule Out 05/17/2024 05/17/2024 05/17/2024 4:44 PM PLASTIC PRESS MOLDER Respiratory Rule Out 07/05/2024 07/05/2024 025 10:03 [...] documented as of this encounter Care Teams Oil Scout Relationship Specialty Start Date End Date Lay Cota MD PCP - General FAMILY PRACTICE 12/10/22 07/02/24 Edgardo Aldridge MD [address] [facility] [address] [address] PCP - General FAMILY PRACTICE 07/03/24 Keely Ugalde APRN [address] [place] [address] PCP - Hospice Attending 10/06/24 Keely Ugalde APRN [address] [place] [address] Nurse Practitioner PALLIATIVE CARE 10/09/24 Odilon Tellez MD [address] [address] Consulting Physician NEPHROLOGY 11/17/24 Leonardo Washburn MD [address] [address] Consulting Physician Internal Medicine Pulmonary Disease 11/17/24 Young Vasquez MD [address] [facility] [address] [place] [address] GASTROENTEROLOGY 11/17/24 Andrei Chaves MD [address] [place] [address] SURGERY 11/17/24 documented as of this encounter
--- OUTSIDE RECORDS SUMMARY | 2025-01-29 16:43 | XMS_ITS | Clinical Summary ---
Author Organization [facility] Address [address] [facility] [place] [address] Care Team Providers Care Fusing Machine Feeder Name Role Phone Edgardo Aldridge MD Primary Care Provider [phone] Source Comments [facility],non-owned Affiliates and Associated Physician Practices is amultiple site organization consisting of ambulatory clinics and hospital sitesin [place], [place], [place] and [place]. This disclosure is being madepursuant to the Care Everywhere program and may not contain all information available regarding this patient. 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 Not on file [...] examination HEMOGLOBIN A1C Routine 06/08/2018 7:21 AM PODIATRY TEACHER from Last 3 Months or Most Recently Relevant to Health Maintenance Results * (ABNORMAL) BASIC METABOLIC PANEL (CALCIUM TOTAL) (02/01/2024 9:01 AM CDT) BUN 54(H) 7 - 26 mg/dL 02/01/2024 9:58 AM [facility] Creatinine 6.37(H) 0.56 - 0.96 mg/dL 02/01/2024 9:58 AM [facility] Sodium 136 136 - 145 mmol/L 02/01/2024 9:58 AM [facility] Potassium 5.8(H) 3.5 - 4.5 mmol/L 02/01/2024 9:58 AM [facility] Chloride 106 98 - 107 mmol/L 02/01/2024 9:58 AM [facility] CO2 20(L) 22 - 29 mmol/L 02/01/2024 9:58 AM [facility] Glucose 35(LL) 70 - 115 mg/dL 02/01/2024 9:58 AM [facility] Calcium 8.4 8.4 - 10.2 mg/dL 02/01/2024 9:58 AM [facility] Anion Gap 10 6 - 16 02/01/2024 9:58 AM [facility] BUN/Creatinine Ratio 8 7 - 23 02/01/2024 9:58 AM [facility] Osmolality Calculated 293 275 - 295 mOsm/kg 02/01/2024 9:58 AM CDT [facility] eGFR by CKD-EPI 9(L) >=90 mL/min/1.7 3 m2 02/01/2024 9:58 AM CDT [facility] Blood BLOOD SPECIMEN / Unknown Venipuncture / Unknown 02/01/2024 9:01 AM CDT 02/01/2024 9:08 AM CDT Tess Dunham MD LAB - CHEMISTRY ORDERABLES Final Result [facility] [address] [place] [address], [facility] [phone] * (ABNORMAL) HEMOGLOBIN A1C (06/08/2018 7:21 AM PODIATRY TEACHER) Hemoglobin A1c 14.5(H) 4.2 - 6.3 % 06/08/2018 8:06 AM PODIATRY TEACHER [facility] Estimated Average Glucose 369 mg/dL 06/08/2018 8:06 AM PODIATRY TEACHER [facility] Blood BLOOD SPECIMEN / Unknown Lab Venipuncture / Unknown 06/08/2018 7:21 AM PODIATRY TEACHER 06/08/2018 7:37 AM PODIATRY TEACHER Corina Simmons MD LAB - CHEMISTRY ORDERABLES Final Result [facility] [address] [place] [address] from Last 3 Months or Most Recently Relevant to Health [place] [address] [place] [address] MEDICAID - [place] [facility] MEDICAID - [place] MEDICARE MEDICAID [facility] Advance Directives * Full Code (Latest Code [...] 10:29 AM 07/09/2015 1:11 PM Care Teams Fusing Machine Feeder Relationship Specialty Start Date End Date Edgardo Aldridge MD [address] [facility] [address] M[address] [place] [phone] PCP - General Family Medicine 12/28/23
--- OUTSIDE RECORDS SUMMARY | 2025-01-29 16:43 | XMS_ITS | Encounter Summary ---
Author Organization [facility] Facility Care Team Providers Care College Recruiter Name Role Phone Unknown, Notinfile Primary Care Provider Unavail able Lay Villalta MD Primary Care Provider [phone] Tremayne Kebede MD Unavailable [phone] Georgia Mcbride CHARGER TESTER Unavailable [phone] Miscellaneous, Not In File Unavailable Unava ilable Eun Camacho Primary Care Provider + Cony Pemberton SPONGE PRESS OPERATOR Unavailable [phone] Antonette Vernon RN Unavailable [phone] Andrei Chaves MD PhD Unavailable [phone] Olivia Phelps MD Unavailable [phone] Edgardo Aldridge MD Primary Care Provider [phone] Odilon Tellez MD Unavailable [phone] Miscellaneous, Not In File Unavailable Unava ilable Ct Boggs SPONGE PRESS OPERATOR Unavailable [phone] Odilon Tellez MD Unavailable [phone] Tracey Felix RN Unavailable [phone] Ayaka Thomas MD Unavailable [phone] Yumi Jones NP Unavailable [phone] Ruthy Leahy SPONGE PRESS OPERATOR Unavailable Unavaila ble Feli Boggs RN Unavailable Mendel Bowling RN Unavailable [phone] Leslie Baptiste [facility] Unavailable [phone] Mendel Bowling RN Unavailable [phone] Odilon Tellez MD Unavailable [phone] Mavis Barahona RN Unavailable [phone] Mahnaz Garcia RN Unavailable [phone] Jaimie Glez RN Unavailable [phone] Encounter Details Date Type Department Care Team (Latest Contact Info) Description 06/07/2018 Orders Only [facility] CLINCONV ProviderSotero MD [address] [place] [address] Social History Tobacco Use Types Packs/Day Years Used Date Smoking Tobacco: Never Comments Unknown Sex and Gender Information Value Date Recorded Sex Assigned at Not on file 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 Historical Provider Final Res ult * SCAN - LABS (06/13/2018 12:00 AM FORK LIFT TECHNICIAN) Narrative 06/13/2018 12:00 AM FORK LIFT TECHNICIAN Ordered by an unspecified provider. Historical Provider Final Res ult * SCAN - LABS (06/08/2018 12:00 AM FORK LIFT TECHNICIAN) Narrative 06/08/2018 12:00 AM FORK LIFT TECHNICIAN Ordered by an unspecified provider. Historical Provider [...] CDT COVID19 02/02/2020 02/02/2020 02/19/2020 3:05 AM FORK LIFT TECHNICIAN COVID: Recovered Comment:Added based on recent [...] COVID: Suspected 06/15/2023 06/15/2023 06/15/2023 5:53 PM FORK LIFT TECHNICIAN C. difficile suspected 06/24/2023 06/24/202306/26 6:03 AM CDT COVID: Suspected 06/27/2023 06/27/2023 06/27/2023 7:07 PM CDT COVID: Suspected 07/10/2023 07/10/2023 07/10/2023 6:50 AM CDT COVID: Suspected 07/13/2023 07/13/2023 07/13/2023 9:45 PM CDT MRSA Comment:MRSA Isolation Usp 06/21/24 10/23/2023 02/09/2024 06/21/2024 6:[address] C. 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 Source: [facility]. 08/20/2024 Carbapenemase, Unspecified Comment:Added from external infection. Source: [facility]. Kleb pneumo KPC 09/23/2024 10/31/2024 3:07 PM C DT CP-HOUSE CARPENTER Comment:Added from external infection. Source: [facility]. Kleb pneumo KPC 10/31/2024 10/31/2024 documented as of this encounter Care Teams College Recruiter Relationship Specialty Start Date End Date Unknown, Notinfile PCP - General 12/28/16 08/23/18 Lay Villalta MD PCP - General Family Medicine 08/24/18 07/17/21 Eun Camacho PA PCP - General Family Medicine 07/18/21 03/08/23 Edgardo Aldridge MD [address] [facility] [address] [place] [address] PCP - General Family Medicine 04/02/23 Tremayne Kebede MD Consulting Physician Gastroenterology 02/05/20 3 Georgia Mcbride CHARGER TESTER [address] [facility] [address] [place] [address] ACO Care Molded Parts Inspector 11/28/20 12/19/20 Miscellaneous, Not In File 07/17/21 03/16/23 Cony Pemberton LCSW [address] [facility] ([facility] Mailstop [phone] [place] [address] [facility] Outpatient Software Validation Technician 12/07/22 12/07/22 Antonette Vernon RN [address] [facility] [address] [place] [address] SHOP Outpatient Software Validation Technician 12/08/22 01/05/23 [place] [address] [place] [address] [address] [place] [address] Referring Physician General Surgery 03/17/23 Olivia Phelps MD [address] [facility] [address] [place] [address] Consulting Physician Nephrology 03/17/23 Odilon Tellez MD [address] [facility] [address] or [address] [place], [place] [address] Consulting Physician Nephrology 05/01/23 12/04/24 Miscellaneous, Not In File 07/08/23 01/24/24 Ct Boggs SPONGE PRESS OPERATOR [address] [place] [address] ([facility]) Mailstop [phone] [place] [address] SHOP Outpatient Software Validation Technician 07/09/23 08/05/23 Odilon Tellez MD [address] [facility] [address] [place] [address] Referring Physician Nephrology 11/12/23 Tracey Felix, KADY [address] [facility] [address] [place] [address] Machine Chain Maker 11/12/23 11/17/23 Ayaka Thomas MD [address] [facility] [address] [place] [address] Fellow Internal Medicine 12/17/23 Yumi Jones NP [address] [place] [address] [facility] [address] [place] [address] Nurse Practitioner Hospice and Palliative Medicine 08/16/23 Ruthy Leahy LCSW Avionics Manager 12/31/23 02/22/24 Feli Boggs RN [address] [place] [address] [address] [place] [address] Post Anesthesia Nurse 12/31/23 01/02/24 Mendel Bowling RN [address] [place] [address] [address] [place] [address] Post Anesthesia Nurse 01/03/24 03/23/24 Leslie Baptiste [address] [place] [address] Pharmacist Pharmacy 01/13/24 02/03/24 Mendel Bowling RN [address] [place] [address] [address] [place] [address] Post Anesthesia Nurse 11/07/24 01/04/25 Odilon Tellez MD [address] [facility] [address] [place] [address] Consulting Physician Nephrology 12/05/24 Mavis Barahona, RN [address] [facility] [address] [place] [address] Machine Chain Maker 12/20/24 01/08/25 Mahnaz Garcia, KADY [address] [place] [address] [address] [place] [address] Post Anesthesia Nurse 01/15/25 01/15/25 Jaimie Glez, KADY [address] [place] [address] [address] [place] [address] Post Anesthesia Nurse 01/29/25 documented as of this encounter
--- OUTSIDE RECORDS SUMMARY | 2025-01-29 16:43 | XMS_ITS | Encounter Summary ---
Author Organization [facility] Address [facility] [place] [address] Care Team Providers Care Cloth Measurer Machine Name Role Phone Lay Cota MD Primary Care Provider [phone] Edgardo Aldridge MD Primary Care Provider [phone] Keely Ugalde HOME AND SCHOOL VISITOR Unavailable [phone] Keely Ugalde HOME AND SCHOOL VISITOR Unavailable [phone] Odilon Tellez MD Unavailable [phone] Leonardo Washburn MD Unavailable [phone] Young Vasquez MD Unavailable [phone] Andrei Chaves MD Unavailable [phone] Encounter Details Date Type Department Care Team (Late st Contact Info) Description 03/07/2024 Prep for Procedure Caro's Pre-Admission Testing [facility] [place] [address] Juan Long MD [address] [place] [id number] Social History Tobacco Use Types Packs/Day Years Used Date Smoking Tobacco: Never Smokeless Tobacco: Never Alcohol Use Standard Drinks/Week Comments Not Currently 0 (1 standard drink = 0.6 oz pur e alcohol) occasionally [facility] Utilities Answer Date Recorded In the past 12 months has [employer] gas, oil, or water [place] threatened to shut off services in your [...] How often do you attend chur or adventist services? Never 12/31/2022 Do you belong to any clubs o r organizations such as jewish groups, unions, fraternal or athletic groups, or [...] Recorded Patient Health Questionnaire-2 Score 0 12/31/2022 [facility] of Occupat ional Health - Occupational Stress [...] place to sleep or slept in a assisted (including now)? No 03/20/2023 Housing Stability Vital [...] 1:51 PM Dunia Wilson RN Active * [place] Suicide Severity Rating Scale (Screener/Recent Self-Report) Question [...] st Contact Info) Description 05/24/2025 10:20 AM PROJECT PROGRAM MANAGER Office Visit [facility] - [facility] [address] [place] [id number] Leonardo Washburn MD [address] [place] [address] documented as of this encounter Goals Goal Patient Goal Type Associated Problems Recent Progress Patient-Stated? Author HOME TO INDEPENDENT LIVING. General No Chiquis Alicia, RN Patient will return to prior living situation and remain independent in ADLs upon discharge from hospital Lifestyle No Jeri Lara LSW Health - patient able to perform ADLs independently Lifestyle No Latrice Marie, MACHINE I COREMAKER Health - patient able to perform ADLs independently Lifestyle No Latrice Marie, MACHINE I COREMAKER documented as of this encounter Visit Diagnoses Not on filedocumented in this encounter Additional Health Concerns Infection Onset Date Last Indicated Resolved Time MRSA Comment:04/27/23 +MRSA Urine 10/23/23 +MRSA from [facility]. Added from external infection. Source: [facility]. 02/09/24 +MRSA Nares from [facility]. 05/08/24 +MRSA Nares 10/23/2023 12/04/2024 COVID-19 Rule Out 03/12/2024 03/12/2024 03/12/2024 3:51 PM PROJECT PROGRAM MANAGER COVID-19 Rule Out 04/04/2024 04/04/2024 04/04/2024 5:10 PM PROJECT PROGRAM MANAGER COVID-19 Rule Out 04/24/2024 04/24/2024 04/24/2024 8:24 PM PROJECT PROGRAM MANAGER RSV 04/24/2024 04/24/2024 05/04/2024 12:3 2 AM PROJECT PROGRAM MANAGER COVID-19 Rule Out 05/08/2024 05/08/2024 05/08/2024 4:15 PM PROJECT PROGRAM MANAGER Tuberculosis Rule-Out 05/09/2024 05/09/20242024 10:09 AM PROJECT PROGRAM MANAGER COVID-19 Rule Out 05/17/2024 05/17/2024 05/17/2024 4:44 PM PROJECT PROGRAM MANAGER Respiratory Rule Out 07/05/2024 07/05/2024 025 10:03 [...] documented as of this encounter Care Teams Cloth Measurer Machine Relationship Specialty Start Date End Date Lay Cota MD PCP - General FAMILY PRACTICE 12/10/22 07/02/24 Edgardo Aldridge MD [address] [address] PCP - General FAMILY PRACTICE 07/03/24 Keely Ugalde, HOME AND SCHOOL VISITOR [address] [place] [address] PCP - Hospice Attending 10/06/24 Keely Ugalde, HOME AND SCHOOL VISITOR [address] [place] [address] Nurse Practitioner PALLIATIVE CARE 10/09/24 Odilon Tellez MD [address] [address] Consulting Physician NEPHROLOGY 11/17/24 Leonardo Washburn MD [address] [address] [place] [address] Consulting Physician Internal Medicine Pulmonary Disease 11/17/24 Young Vasquez MD [address] [facility] [address] [place] [address] GASTROENTEROLOGY 11/17/24 Andrei Chaves MD [address] [place] [address] SURGERY 11/17/24 documented as of this encounter
--- OUTSIDE RECORDS SUMMARY | 2025-01-29 16:43 | XMS_ITS | Encounter Summary ---
Author Organization [facility] Healthcare Address [address] [place] [address] Care Team Providers Care Dermatology Procedural Physician Name Role Phone Andrei Chaves MD PhD Unavailable [phone] Olivia Phelps MD Unavailable [phone] Edgardo Aldridge MD Primary Care Provider [phone] Odilon Tellez MD Unavailable [phone] Ayaka Thomas MD Unavailable [phone] Yumi Jones NP Unavailable [phone] Odilon Tellez MD Unavailable [phone] Jaimie Glez RN Unavailable [phone] Reason for Visit * Reason Onset Date Comments req a cb about surg 01/24/2025 FYI 01/24/2025 Encounter Details Date Type Department Care Team (Late st Contact Info) Description 01/24/2025 Telephone [facility] Medical Group Orthopedics and Sports Medicine [address] [facility] [address] [place] [address] Sussy Garcia PA [address] [place] [id number] req a cb about surg; FYI [...] often do you attend chur ch or latter-day services? Never 11/07/2024 Do you belong to any clubs o r organizations such as roman catholic groups, unions, fraternal or athletic groups, or [...] Date Recorded PHQ-2 Total Score 0 01/09/2025 [facility] of Occupat ional Health - Occupational Stress [...] any time in the past [facility], were you homeless or living in a group home (including now)? No 11/07/2024 Social Connection [...] often do you attend chur ch or latter-day services? Never 01/17/2025 Do you belong to any clubs o r organizations such as roman catholic groups, unions, fraternal or athletic groups, or [...] any time in the past 12 [facility], were you homeless or living in a group home (including now)? 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 States she has been admitted to [facility] since 01/15/25 and they were going to d/c her later today so she could have her surgery tomorrow, not she is not sure when she will be d/c'd since surgery was cx'd. [facility] * Telephone [...] Time 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 Source: [facility]. 08/20/2024 CP-FLOOR SANDER Comment:Added from external infection. Source: [facility]. Kleb pneumo [facility] 10/31/2024 10/31/2024 documented as of this encounter Care Teams Dermatology Procedural Physician Relationship Specialty Start Date End Date Edgardo Aldridge MD [address] [facility] [address] [place] [address] PCP - General Family Medicine 04/02/23 Andrei Chaves MD PhD [address] [address] Referring Physician General Surgery 03/17/23 Olivia Phelps MD [address] [facility] [address] 4 [place] [address] Consulting Physician Nephrology 03/17/23 Odilon Tellez MD [address] [facility] [address] [place] [address] Referring Physician Nephrology 11/12/23 Ayaka Thomas MD [address] [facility] [address] [place] [address] Fellow Internal Medicine 12/17/23 Yumi Jones MESS ATTENDANT [address] [place] [address] Nurse Practitioner Hospice and Palliative Medicine 08/16/23 Odilon Tellez MD [address] [place] [address] Consulting Physician Nephrology 12/05/24 Jaimie Glez, KADY [address] [place] [address] [address] [place] [address] Program Evaluation Consultant 01/29/25 documented as of this encounter
--- OUTSIDE RECORDS SUMMARY | 2025-01-29 16:43 | XMS_ITS ---
Author Organization [facility] Address [address] [place] [address] Care Team Providers Care Operations Team Leader Name Role Phone Andrei Chaves MD PhD Unavailable [phone] Olivia Phelps MD Unavailable [phone] Edgardo Aldridge MD Primary Care Provider Odilon Tellez MD Unavailable [phone] Ayaka Thomas MD Unavailable [phone] Yumi Jones NP Unavailable [phone] Odilon Tellez MD Unavailable [phone] Jaimie Glez RN Unavailable [phone] Dialysis Access Sites Type Status Location Placement [...] PLACEMENT IP Routine 01/09/2025 10:32 AM CDT TX AN PROCEDURE PLACEHOLDER Routine 12/19 9:43 AM CDT TX AN ELECTIVE ENDOTRACHEAL AIRWAY Routine 01/09/2025 9:43 [...] AM CDT COLONOSCOPY 12/26/2024 9:16 AM CDT TX AN PROCEDURE PLACEHOLDER Routine 12/2024 9:02 AM CDT TX AN ELECTIVE ENDOTRACHEAL AIRWAY Routine 12/26/2024 9:02 [...] Medium 01/11/2024 Medications blood-glucose meter,continuous (Dexcom G6 Resistor Tester) miscIndications:Unc ontrolled type 1 diabetes mellitus with hyperglycemia, with long-term current use of insulin (HCC) 1 Dexcom G6 Resistor Tester 1 each 023 Active OneTouch Delica Plus [...] hyperglycemia, with long-term current use of insulin ([facility]) Will use 1 sensor every 10 days. 1 box = 3 sensors. 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 renal US). 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 Continue to monitor. Hold [...] mostly IV dilaudid and was on a MANUFACTURERS SERVICE REPRESENTATIVE briefly. - continues to have severe abdominal [...] same. Plan change to esophageal diet today. 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 Has an appointment for GI in [place] next month. Currently is on SSI, but [...] q1hr Assessment & Plan (05/15/2020 2:56 PM FINANCIAL SUPERVISOR): Needs letter for another 2 weeks off and when returns needs intermittent restrictions on return with no more than 3 days per week, but not consecutive 3 days Assessment & Plan (05/15/2020 6:29 AM FINANCIAL SUPERVISOR): Uncontrolled Cont treatment per GI Cont reglan Has PICC line Assessment & Plan (06/27/2019 8:44 AM CDT): - Chronic emesis which triggers DKA. No active symptoms now. - PCP follow up. - Glucose control as above. Assessment & Plan (04/21/2019 1:24 PM FINANCIAL SUPERVISOR): -Patient reports h/o positive gastric emptying study [...] had discussion with patient regarding pain control. halfway opioids would be a very poor choice for her, given her gastroparesis, young age, and potential for developing dependence/addiction. Will not discharge on opioids. Assessment & Plan (04/20/2019 6:16 PM FINANCIAL SUPERVISOR): -Patient reports h/o positive gastric emptying study [...] fluids Assessment & Plan (03/29/2020 5:23 AM FINANCIAL SUPERVISOR): Uncontrolled Cont long acting insulin with SSI F/u with customer field representative Assessment & Plan (03/20/2020 5:26 AM FINANCIAL SUPERVISOR): Uncontrolled Cont insulin pump per endocrinology Vitamin [...] losartan Assessment & Plan (03/31/2022 5:47 PM FINANCIAL SUPERVISOR): Not at goal Pt left office today [...] 10mg Assessment & Plan (03/29/2020 5:24 AM FINANCIAL SUPERVISOR): Stable Cont lisinopril, amlodipine Assessment & Plan [...] lisinopril. Assessment & Plan (06/12/2019 12:12 PM FINANCIAL SUPERVISOR): continue lisinopril and toprol xl , clonidine patch Assessment & Plan (06/11/2019 1:52 PM FINANCIAL SUPERVISOR): _BP better today , continue lisinopril and toprol xl Assessment & Plan (05/07/2019 2:03 PM FINANCIAL SUPERVISOR): On clonidine, metoprolol and lisinopril at home. - continue home clonidine and metoprolol - hold lisinopril for now (? EUGENIE related intestinal angioedema). May need to consider alternative anti-hypertensive if needed as a trial. Assessment & Plan (04/28/2019 4:43 PM FINANCIAL SUPERVISOR): - Cont home meds Assessment & Plan (04/27/2019 2:59 PM FINANCIAL SUPERVISOR): - Cont home meds Assessment & Plan (04/21/2019 12:59 PM FINANCIAL SUPERVISOR): Clonidine patch and metoprolol XL -BP stable Assessment & Plan (04/11/2019 12:43 PM FINANCIAL SUPERVISOR): Cont lisinopril and Toprol XL, and due for change of clonidine patch Assessment & Plan (04/10/2019 11:29 AM FINANCIAL SUPERVISOR): BP elevated this am but improved after [...] often do you attend chur ch or sabianist services? Never 11/07/2024 Do you belong to any clubs o r organizations such as adventism groups, unions, fraternal or athletic groups, or [...] Date Recorded PHQ-2 Total Score 0 01/09/2025 [facility] of Occupat ional Health - Occupational Stress [...] place to sleep or slept in a [place] facility (including now)? No 08/30/2023 PHQ-9 Answer Date [...] any time in the past [address] [facility], were you homeless or living in a [place] facility (including now)? No 11/07/2024 Social Connection and Isolation Panel Answer Date Recorded In a typical week, how many times do you talk on the phone with family, friends, or neighbors? More than three times a week 01/17/2025 How often do you get togethe r with friends or relatives? More than three times a week 01/17/2025 How often do you attend chur ch or sabianist services? Never 01/17/2025 Do you belong to any clubs o r organizations such as adventism groups, unions, fraternal or athletic groups, or [...] any time in the past [address] [facility], were you homeless or living in a [place] facility (including now)? No 01/17/2025 [facility] Utilities Answer Date Recorded In the [...] on file Legal Sex Female 9:16 AM FINANCIAL SUPERVISOR Gender Identity Not on file Sexual [...] last revised on 2013. POC Device Number [id number] 1 HERBER MARCANO Blood 01/26/2025 10:3 6 AM CDT 01/26/2025 10:36 AM CDT Devang Henning MD LAB POCT ORDERABLES - DEVICE Final Result Performing Organization Address [facility] Co de Phone Number [facility] [address] [facility] [place] [address] * POCT glucose (01/26/2025 8:22 AM CDT) Glucose, POC 81 70 - 199 mg/dL Comment: Interpretive Data Glucose is assumed to be non-fasting. Fasting Glucose reference ranges are: 0 - 150 years: 70 mg/dL - 99 mg/dL Current interpretive data was last revised on 2013. POC Device Number [id number] 1 HERBER MARCANO Blood 01/26/2025 8:22 AM CDT 01/26/2025 8:22 AM CDT Devang Henning MD LAB POCT ORDERABLES - DEVICE Final Result Performing Organization Address [facility] Co de Phone Number [facility] [address] [address] [employer] [facility] [employer] [place], [place] [id number] * POCT glucose (01/26/2025 5:50 AM CDT) Glucose, POC 81 70 - 199 mg/dL Comment: Interpretive Data Glucose is assumed to be non-fasting. Fasting Glucose reference ranges are: 0 - 150 years: 70 mg/dL - 99 mg/dL Current interpretive data was last revised on 2013. POC Device Number [id number] 1 HERBER MARCANO Blood 01/26/2025 5:50 AM CDT 01/26/2025 5:50 AM CDT Devang Henning MD LAB POCT ORDERABLES - DEVICE Final Result Performing Organization Address [facility] de Phone Number [facility] [address] [facility] [employer] [place], [place] [id number] * POCT glucose (01/26/2025 1:53 AM CDT) Glucose, POC 144 70 - 199 mg/dL Comment: Interpretive Data Glucose is assumed to be non-fasting. Fasting Glucose reference ranges are: 0 - 150 years: 70 mg/dL - 99 mg/dL Current interpretive data was last revised on 2013. POC Device Number [id number] 1 HERBER MARCANO Blood 01/26/2025 1:53 AM CDT 01/26/2025 1:53 AM CDT Devang Henning MD LAB POCT ORDERABLES - DEVICE Final Result Performing Organization Address [facility] de Phone Number [facility] BJW[facility] [address] [facility] [employer] [place], [place] [phone] * POCT glucose (01/25/2025 9:55 PM CDT) Glucose, POC 172 70 - 199 mg/dL Comment: Interpretive Data Glucose is assumed to be non-fasting. Fasting Glucose reference ranges are: 0 - 150 years: 70 mg/dL - 99 mg/dL Current interpretive data was last revised on 2013. POC Device Number [id number] 1 HERBER MARCANO Blood 01/25/2025 9:55 PM CDT 01/25/2025 9:55 PM CDT Devang Henning MD LAB POCT ORDERABLES - DEVICE Final Result Performing Organization Address [facility] Phone Number [facility] [address] [facility] [place] [address] * POCT glucose (01/25/2025 5:42 PM CDT) Glucose, POC 110 70 - 199 mg/dL Comment: Interpretive Data Glucose is assumed to be non-fasting. Fasting Glucose reference ranges are: 0 - 150 years: 70 mg/dL - 99 mg/dL Current interpretive data was last revised on 2013. POC Device Number [id number] 1 HERBER MARCANO Blood 01/25/2025 5:42 PM CDT 01/25/2025 5:42 PM CDT Devang Henning MD LAB POCT ORDERABLES - DEVICE Final Result Performing Organization Address [facility] Phone Number HERBER [facility] [address] [place] [address] * POCT glucose (01/25/2025 12:57 PM CDT) Glucose, POC 81 70 - 199 mg/dL Comment: Interpretive Data Glucose is assumed to be non-fasting. Fasting Glucose reference ranges are: 0 - 150 years: 70 mg/dL - 99 mg/dL Current interpretive data was last revised on 2013. POC Device Number [id number] 1 HERBER MARCANO Blood 01/25/2025 12:5 7 PM CDT 01/25/2025 12:57 PM CDT Devang Henning MD LAB POCT ORDERABLES - DEVICE Final Result Performing Organization Address [facility] de Phone Number HERBER JIMENEZW[facility] [address] [facility] [facility] [place] [address] * (ABNORMAL) POCT glucose (01/25/2025 12:39 PM CDT) Glucose, POC 64(L) 70 - 199 mg/dL Comment: Interpretive Data Glucose is assumed to be non-fasting. Fasting Glucose reference ranges are: 0 - 150 years: 70 mg/dL - 99 mg/dL Current interpretive data was last revised on 2013. POC Device Number [id number] HERBER JIMENEZWCH Glucose comment 1 RN/MD Notified HERBER JIMENEZWCH Blood 01/25/2025 12:3 9 PM CDT 01/25/2025 12:39 PM CDT Devang Henning MD LAB POCT ORDERABLES - DEVICE Final Result Performing Organization Address [facility] Phone Number HERBER [facility] [address] [facility] [place] [address] * POCT glucose (01/25/2025 10:43 AM CDT) Glucose, POC 84 70 - 199 mg/dL Comment: Interpretive Data Glucose is assumed to be non-fasting. Fasting Glucose reference ranges are: 0 - 150 years: 70 mg/dL - 99 mg/dL Current interpretive data was last revised on 2013. POC Device Number [id number] 3 HERBER JIMENEZWCH Blood 01/25/2025 10:4 3 AM CDT 01/25/2025 10:43 AM CDT Dveang Henning MD LAB POCT ORDERABLES - DEVICE Final Result Performing Organization Address [facility] Co de Phone Number HERBER [facility] [address] [facility] [facility] [place] [address] * POCT glucose (01/25/2025 9:08 AM CDT) Glucose, POC 90 70 - 199 mg/dL Comment: Interpretive Data Glucose is assumed to be non-fasting. Fasting Glucose reference ranges are: 0 - 150 years: 70 mg/dL - 99 mg/dL Current interpretive data was last revised on 2013. POC Device Number [id number] 3 HERBER MARCANO Blood 01/25/2025 9:08 AM CDT 01/25/2025 9:08 AM CDT Devang Henning MD LAB POCT ORDERABLES - DEVICE Final Result Performing Organization Address [facility] de Phone Number HERBER W[facility] [address] [facility] [employer] [place], [place] [phone] * POCT glucose (01/25/2025 7:51 AM CDT) Glucose, POC 99 70 - 199 mg/dL Comment: Interpretive Data Glucose is assumed to be non-fasting. Fasting Glucose reference ranges are: 0 - 150 years: 70 mg/dL - 99 mg/dL Current interpretive data was last revised on 2013. POC Device Number [id number] 3 HERBER MARCANO Blood 01/25/2025 7:51 AM CDT 01/25/2025 7:51 AM CDT Devang Henning MD LAB POCT ORDERABLES - DEVICE Final Result Performing Organization Address [facility] de Phone Number [facility] [address] [facility] [employer] [place], [place] [phone] * POCT glucose (01/25/2025 5:21 AM CDT) Glucose, POC 129 70 - 199 mg/dL Comment: Interpretive Data Glucose is assumed to be non-fasting. Fasting Glucose reference ranges are: 0 - 150 years: 70 mg/dL - 99 mg/dL Current interpretive data was last revised on 2013. POC Device Number [id number] 3 HERBER B[facility] Blood 01/25/2025 5:21 AM CDT 01/25/2025 5:21 AM CDT us Devang Henning MD LAB POCT ORDERABLES - DEVICE Final Result Performing Organization Address [facility] Co de Phone Number HERBER JIMENEZWCH [address] [facility] [employer] [place], [place] [phone] * (ABNORMAL) eGFR (01/25/2025 5:18 AM CDT) [...] ORDERABLES Final Res ult Performing Organization Address [facility]/ZIP Co de Phone Number HERBER JIMENEZWCH [address] [facility] [place] [address] * Magnesium (01/25/2025 5:18 AM CDT) Magnesium 2.4 1.4 - 2.5 mg/dL Comment: Reference Data. Reference values for Labor and Delivery patients: < or = 0.7 mg/dL to > or = 7.3 mg/dL Current reference data last reviewd on 01/16/2015. Blood 01/25/2025 5:18 AM CDT 01/25/2025 5:54 AM CDT Devang Henning MD LAB BLOOD ORDERABLES Final Result [facility] [address] [facility] [place] [address] * (ABNORMAL) Renal function panel (01/25/2025 5:18 [...] Glucose 112 70 - 199 mg/dL [facility] Comment: Interpretive Data Fasting glucose [...] ORDERABLES Final Res ult Performing Organization Address [facility] Co de Phone Number HERBER JIMENEZCH [address] [facility] [place] [address] * POCT glucose (01/25/2025 2:02 AM CDT) Glucose, POC 181 70 - 199 mg/dL Comment: Interpretive Data Glucose is assumed to be non-fasting. Fasting Glucose reference ranges are: 0 - 150 years: 70 mg/dL - 99 mg/dL Current interpretive data was last revised on 2013. POC Device Number [id number] 3 HERBER MARCANO Blood 01/25/2025 2:02 AM CDT 01/25/2025 2:02 AM CDT Devang Henning MD LAB POCT ORDERABLES - DEVICE Final Result Performing Organization Address [facility] Phone Number HERBER JIMENEZCH [address] [facility] [place] [address] * (ABNORMAL) POCT glucose (01/24/2025 10:05 PM CDT) Glucose, POC 243(H) 70 - 199 mg/dL Comment: Interpretive Data Glucose is assumed to be non-fasting. Fasting Glucose reference ranges are: 0 - 150 years: 70 mg/dL - 99 mg/dL Current interpretive data was last revised on 2013. POC Device Number [id number] 3 HERBER MARCANO Blood 01/24/2025 10:0 5 PM CDT 01/24/2025 10:05 PM CDT Devang Henning MD LAB POCT ORDERABLES - DEVICE Final Result Performing Organization Address [facility] Co de Phone Number HERBER JIMENEZW[facility] [address] [employer] [facility] [place] [address] * POCT glucose (01/24/2025 6:13 PM CDT) Glucose, POC 134 70 - 199 mg/dL Comment: Interpretive Data Glucose is assumed to be non-fasting. Fasting Glucose reference ranges are: 0 - 150 years: 70 mg/dL - 99 mg/dL Current interpretive data was last revised on 2013. POC Device Number [id number] 3 HERBER MARCANO Blood 01/24/2025 6:13 PM CDT 01/24/2025 6:13 PM CDT Devang Henning MD LAB POCT ORDERABLES - DEVICE Final Result Performing Organization Address [facility] de Phone Number HERBER JIM[facility]ZW[facility] [address] [facility] [place] [address] * POCT glucose (01/24/2025 12:59 PM CDT) Glucose, POC 110 70 - 199 mg/dL Comment: Interpretive Data Glucose is assumed to be non-fasting. Fasting Glucose reference ranges are: 0 - 150 years: 70 mg/dL - 99 mg/dL Current interpretive data was last revised on 2013. POC Device Number [id number] 3 HERBER MARCANO Blood 01/24/2025 12:5 9 PM CDT 01/24/2025 12:59 PM CDT Devang Henning MD LAB POCT ORDERABLES - DEVICE Final Result Performing Organization Address [facility] de Phone Number HERBER [facility] [address] [facility] [place] [address] * POCT glucose (01/24/2025 9:32 AM CDT) Glucose, POC 111 70 - 199 mg/dL Comment: Interpretive Data Glucose is assumed to be non-fasting. Fasting Glucose reference ranges are: 0 - 150 years: 70 mg/dL - 99 mg/dL Current interpretive data was last revised on 2013. POC Device Number [id number] 3 BERLINLULY BARBARASIGRID Blood 01/24/2025 9:32 AM CDT 01/24/2025 9:32 AM CDT Devang Henning MD LAB POCT ORDERABLES - DEVICE Final Result Performing Organization Address [facility] Co de Phone Number HERBER JIMENEZWCH [address] [employer] [place] [address] * (ABNORMAL) eGFR (01/24/2025 5:56 [...] BLOOD ORDERABLES Final Result Performing Organization Address City/[facility]/ZIP Co de Phone Number HERBER JIMENEZWCH [address] [employer] [place] [address] * Magnesium (01/24/2025 5:56 AM CDT) Magnesium 2.0 1.4 - 2.5 mg/dL Comment: Reference Data. Reference values for Labor and Delivery patients: < or = 0.7 mg/dL to > or = 7.3 mg/dL Current reference data last reviewd on 01/16/2015. Blood 01/24/2025 5:56 AM CDT 01/24/2025 6:25 AM CDT Devang Henning MD LAB BLOOD ORDERABLES Final Result [facility] [address] [facility] [place] [address] * (ABNORMAL) Renal function panel (01/24/2025 5:56 AM CDT) Pathologist [facility] Sodium 134(L) 135 - 145 mmol/L Potassium, pl 4.8 3.3 - 4.9 mmol/L [facility] Chloride 96(L) 97 - 110 mmol/L [facility] CO2 30 22 - 32 mmol/L [facility] Anion gap 8 2 - 15 mmol/L [facility] BUN 34(H) 6 - 25 mg/dL [facility] Creatinine 4.40(H) 0.60 - 1.10 mg/dL [facility] Glucose 115 70 - 199 mg/dL [facility] Comment: Interpretive Data Fasting glucose >/= [...] 2022. Calcium 9.1 8.5 - 10.3 mg/dL [facility] Phosphorus, pl 3.8 2.3 - 4.5 mg/dL C[facility]ER W Albumin 3.7 3.5 - 5.0 g/dL [facility] Blood 01/24/2025 5:56 AM CDT 01/24/2025 6:25 AM CDT Devang Henning MD LAB BLOOD ORDERABLES Final Result Performing Organization Address [facility] de Phone Number HERBER JIMENEZCH [address] [facility] [place] [address] * POCT glucose (01/24/2025 5:43 AM CDT) Glucose, POC 115 70 - 199 mg/dL Comment: Interpretive Data Glucose is assumed to be non-fasting. Fasting Glucose reference ranges are: 0 - 150 years: 70 mg/dL - 99 mg/dL Current interpretive data was last revised on 2013. POC Device Number [id number] 3 [facility] Blood 01/24/2025 5:43 AM CDT 01/24/2025 5:43 AM CDT Devang Henning MD LAB POCT ORDERABLES - DEVICE Final Result Performing Organization Address [facility] de Phone Number HERBER WCH [address] [facility] [place] [address] * POCT glucose (01/24/2025 1:53 AM CDT) Glucose, POC 120 70 - 199 mg/dL Comment: Interpretive Data Glucose is assumed to be non-fasting. Fasting Glucose reference ranges are: 0 - 150 years: 70 mg/dL - 99 mg/dL Current interpretive data was last revised on 2013. POC Device Number [id number] 3 HERBER REINA Blood 01/24/2025 1:53 AM CDT 01/24/2025 1:53 AM CDT Devang Henning MD LAB POCT ORDERABLES - DEVICE Final Result Performing Organization Address [facility] de Phone Number HERBER B[facility] [address] [facility] [place] [address] * POCT glucose (01/23/2025 9:51 PM CDT) [facility] Glucose, POC 134 70 - 199 mg/dL Comment: Interpretive Data Glucose is assumed to be non-fasting. Fasting Glucose reference ranges are: 0 - 150 years: 70 mg/dL - 99 mg/dL Current interpretive data was last revised on 2013. POC Device Number [id number] 3 BERLINLULY [facility] Blood 01/23/2025 9:51 PM CDT 01/23/2025 9:51 PM CDT Devang Henning MD LAB POCT ORDERABLES - DEVICE Final Result Performing Organization Address [facility] Phone Number HERBER [facility] [address] [facility] [place] [address] * US Abdomen Complete (01/23/2025 9:18 PM [...] last revised on 2013. POC Device Number [id number] 3 HERBER JIMENEZWCYDNEY Blood 01/23/2025 4:58 PM CDT 01/23/2025 4:58 PM CDT Devang Henning MD LAB POCT ORDERABLES - DEVICE Final Result Performing Organization Address [facility] de Phone Number [facility] [address] [place] [address] * POCT glucose (01/23/2025 12:15 PM CDT) Glucose, POC 107 70 - 199 mg/dL Comment: Interpretive Data Glucose is assumed to be non-fasting. Fasting Glucose reference ranges are: 0 - 150 years: 70 mg/dL - 99 mg/dL Current interpretive data was last revised on 2013. POC Device Number [id number] 3 HERBER JIMENEZWCH Blood 01/23/2025 12:1 5 PM CDT 01/23/2025 12:15 PM CDT Devang Henning MD LAB POCT ORDERABLES - DEVICE Final Result Performing Organization Address [facility] Co de Phone Number [facility] [address] [employer] [place] [address] * (ABNORMAL) eGFR (01/23/2025 6:36 [...] PhD LAB BLOOD ORDERABLES Final Res ult [facility] [address] [facility] [place] [address] * (ABNORMAL) Renal function panel (01/23/2025 6:36 AM CDT) Sodium 136 135 - 145 mmol/L Potassium, pl 6.1(H) 3.3 - 4.9 mmol/L [facility] Chloride 97 97 - 110 mmol/L [facility] CO2 27 22 - 32 mmol/L [facility] W Anion gap 12 2 - 15 mmol/L [facility] BUN 76(H) 6 - 25 mg/dL [facility] Creatinine 7.40(H) 0.60 - 1.10 mg/dL [facility] Glucose 190 70 - 199 mg/dL [facility] Comment: Interpretive Data Fasting glucose >/= [...] ORDERABLES Final Res ult Performing Organization Address [facility] Co de Phone Number [facility] [address] [facility] [employer] [place], [place] [id number] * (ABNORMAL) POCT glucose (01/23/2025 6:17 AM CDT) Glucose, POC 217(H) 70 - 199 mg/dL Comment: Interpretive Data Glucose is assumed to be non-fasting. Fasting Glucose reference ranges are: 0 - 150 years: 70 mg/dL - 99 mg/dL Current interpretive data was last revised on 2013. POC Device Number [id number] [facility] Blood 01/23/2025 6:17 AM CDT 01/23/2025 6:17 AM CDT Devang Henning MD LAB POCT ORDERABLES - DEVICE Final Result Performing Organization Address [facility] Co de Phone Number [facility] [address] [facility] [employer] [place], [place] [id number] * (ABNORMAL) POCT glucose (01/23/2025 2:08 AM CDT) Glucose, POC 229(H) 70 - 199 mg/dL Comment: Interpretive Data Glucose is assumed to be non-fasting. Fasting Glucose reference ranges are: 0 - 150 years: 70 mg/dL - 99 mg/dL Current interpretive data was last revised on 2013. POC Device Number [id number] 3 HERBER MARCANO Blood 01/23/2025 2:08 AM CDT 01/23/2025 2:08 AM CDT Jeffrey Osorio MD PhD LAB POCT ORDERABLES - DEVICE F inal Result Performing Organization Address [facility] de Phone Number [facility] [address] [facility] [place] [address] * POCT glucose (01/22/2025 11:38 PM CDT) Glucose, POC 195 70 - 199 mg/dL Comment: Interpretive Data Glucose is assumed to be non-fasting. Fasting Glucose reference ranges are: 0 - 150 years: 70 mg/dL - 99 mg/dL Current interpretive data was last revised on 2013. POC Device Number [id number] 3 HERBER MARCANO Blood 01/22/2025 11:3 8 PM CDT 01/22/2025 11:38 PM CDT Jeffrey Osorio MD PhD LAB POCT ORDERABLES - DEVICE F inal Result Performing Organization Address [facility] de Phone Number [facility] [address] [facility] [employer] [place], [place] [id number] * POCT glucose (01/22/2025 8:14 PM CDT) Glucose, POC 125 70 - 199 mg/dL Comment: Interpretive Data Glucose is assumed to be non-fasting. Fasting Glucose reference ranges are: 0 - 150 years: 70 mg/dL - 99 mg/dL Current interpretive data was last revised on 2013. POC Device Number [id number] 3 HERBER REINACH Blood 01/22/2025 8:14 PM CDT 01/22/2025 8:14 PM CDT us Jeffrey Osorio MD PhD LAB POCT ORDERABLES - DEVICE F inal Result Performing Organization Address [facility] Co de Phone Number HERBER JIMENEZCH [address] [facility] [place] [address] * POCT glucose (01/22/2025 5:25 PM CDT) Glucose, POC 112 70 - 199 mg/dL Comment: Interpretive Data Glucose is assumed to be non-fasting. Fasting Glucose reference ranges are: 0 - 150 years: 70 mg/dL - 99 mg/dL Current interpretive data was last revised on 2013. POC Device Number [id number] 4 HERBER JIMENEZWCH Blood 01/22/2025 5:25 PM CDT 01/22/2025 5:25 PM CDT us Jeffrey Osorio MD PhD LAB POCT ORDERABLES - DEVICE F inal Result Performing Organization Address [facility] de Phone Number HERBER JIMENEZCH [address] [place] [address] * POCT glucose (01/22/2025 2:24 PM CDT) Glucose, POC 129 70 - 199 mg/dL Comment: Interpretive Data Glucose is assumed to be non-fasting. Fasting Glucose reference ranges are: 0 - 150 years: 70 mg/dL - 99 mg/dL Current interpretive data was last revised on 2013. POC Device Number [id number] 4 BERLINNER BARBARAWCH Blood 01/22/2025 2:24 PM CDT 01/22/2025 2:24 PM CDT us Jeffrey Osorio MD PhD LAB POCT ORDERABLES - DEVICE F inal Result Performing Organization Address [facility] Co de Phone Number HERBER JIMENEZCH [address] [facility] [place] [address] * POCT glucose (01/22/2025 10:26 AM CDT) Glucose, POC 133 70 - 199 mg/dL Comment: Interpretive Data Glucose is assumed to be non-fasting. Fasting Glucose reference ranges are: 0 - 150 years: 70 mg/dL - 99 mg/dL Current interpretive data was last revised on 2013. POC Device Number [id number] 3 HERBER MARCANO Blood 01/22/2025 10:2 6 AM CDT 01/22/2025 10:26 AM CDT Jeffrey Osorio MD PhD LAB POCT ORDERABLES - DEVICE F inal Result Performing Organization Address [facility] Co de Phone Number [facility] [address] [facility] [place] [address] * POCT glucose (01/22/2025 6:07 AM CDT) Glucose, POC 109 70 - 199 mg/dL Comment: Interpretive Data Glucose is assumed to be non-fasting. Fasting Glucose reference ranges are: 0 - 150 years: 70 mg/dL - 99 mg/dL Current interpretive data was last revised on 2013. POC Device Number [id number] 4 HERBER MARCANO Blood 01/22/2025 6:07 AM CDT 01/22/2025 6:07 AM CDT Jeffrey Osorio MD PhD LAB POCT ORDERABLES - DEVICE F inal Result Performing Organization Address [facility]/ZIP Co de Phone Number [facility] [address] [facility] [place] [address] * POCT glucose (01/22/2025 2:15 AM CDT) Glucose, POC 190 70 - 199 mg/dL Comment: Interpretive Data Glucose is assumed to be non-fasting. Fasting Glucose reference ranges are: 0 - 150 years: 70 mg/dL - 99 mg/dL Current interpretive data was last revised on 2013. POC Device Number [id number] 3 CERNER BARBARAWCH Blood 01/22/2025 2:15 AM CDT 01/22/2025 2:15 AM CDT Jeffrey Osorio MD PhD LAB POCT ORDERABLES - DEVICE F inal Result Performing Organization Address [facility] Phone Number [facility] [address] [facility] [place] [address] * (ABNORMAL) POCT glucose (01/21/2025 10:28 PM CDT) Glucose, POC 340(H) 70 - 199 mg/dL Comment: Interpretive Data Glucose is assumed to be non-fasting. Fasting Glucose reference ranges are: 0 - 150 years: 70 mg/dL - 99 mg/dL Current interpretive data was last revised on 2013. POC Device Number [id number] 4 CERNER BARBARAWCH Blood 01/21/2025 10:2 8 PM CDT 01/21/2025 10:28 PM CDT Jeffrey Osorio MD PhD LAB POCT ORDERABLES - DEVICE F inal Result Performing Organization Address [facility] Phone Number [facility] [address] [facility] [place] [address] * POCT glucose (01/21/2025 5:23 PM CDT) Glucose, POC 195 70 - 199 mg/dL Comment: Interpretive Data Glucose is assumed to be non-fasting. Fasting Glucose reference ranges are: 0 - 150 years: 70 mg/dL - 99 mg/dL Current interpretive data was last revised on 2013. POC Device Number [id number] 4 CERNER [facility] Blood 01/21/2025 5:23 PM CDT 01/21/2025 5:23 PM CDT us Jeffrey Osorio MD PhD LAB POCT ORDERABLES - DEVICE F inal Result Performing Organization Address [facility] Phone Number [facility] [address] [facility] [place] [address] * POCT glucose (01/21/2025 12:29 PM CDT) Glucose, POC 194 70 - 199 mg/dL Comment: Interpretive Data Glucose is assumed to be non-fasting. Fasting Glucose reference ranges are: 0 - 150 years: 70 mg/dL - 99 mg/dL Current interpretive data was last revised on 2013. POC Device Number [id number] 3 HERBER [employer]AH[employer] Blood 01/21/2025 12:2 9 PM CDT 01/21/2025 12:29 PM CDT us Jeffrey Osorio MD PhD LAB POCT ORDERABLES - DEVICE F inal Result Performing Organization Address [facility] de Phone Number [facility] [address] [facility] [place] [address] * POCT glucose (01/21/2025 8:02 AM CDT) Glucose, POC 160 70 - 199 mg/dL Comment: Interpretive Data Glucose is assumed to be non-fasting. Fasting Glucose reference ranges are: 0 - 150 years: 70 mg/dL - 99 mg/dL Current interpretive data was last revised on 2013. POC Device Number [id number] 3 HERBER JIMENEZeYekaCYDNEY Blood 01/21/2025 8:02 AM CDT 01/21/2025 8:02 AM CDT us Jeffrey Osorio MD PhD LAB POCT ORDERABLES - DEVICE F inal Result Performing Organization Address [facility] Co de Phone Number [facility] [address] [facility] [place] [address] * POCT glucose (01/21/2025 6:05 AM CDT) Glucose, POC 184 70 - 199 mg/dL Comment: Interpretive Data Glucose is assumed to be non-fasting. Fasting Glucose reference ranges are: 0 - 150 years: 70 mg/dL - 99 mg/dL Current interpretive data was last revised on 2013. POC Device Number [id number] 3 HERBER MARCANO Blood 01/21/2025 6:05 AM CDT 01/21/2025 6:05 AM CDT Jeffrey Osorio MD PhD LAB POCT ORDERABLES - DEVICE F inal Result Performing Organization Address [facility] de Phone Number [facility] [address] [facility] [employer] [place], [place] [id number] * POCT glucose (01/21/2025 1:50 AM CDT) Glucose, POC 78 70 - 199 mg/dL Comment: Interpretive Data Glucose is assumed to be non-fasting. Fasting Glucose reference ranges are: 0 - 150 years: 70 mg/dL - 99 mg/dL Current interpretive data was last revised on 2013. POC Device Number [id number] 3 HERBER MARCANO Blood 01/21/2025 1:50 AM CDT 01/21/2025 1:50 AM CDT Jeffrey Osorio MD PhD LAB POCT ORDERABLES - DEVICE F inal Result Performing Organization Address [facility] Phone Number [facility] [address] [facility] [employer] [place], [place] [id number] * POCT glucose (01/20/2025 9:49 PM CDT) Glucose, POC 138 70 - 199 mg/dL Comment: Interpretive Data Glucose is assumed to be non-fasting. Fasting Glucose reference ranges are: 0 - 150 years: 70 mg/dL - 99 mg/dL Current interpretive data was last revised on 2013. POC Device Number [id number] 3 HERBER MARCANO Blood 01/20/2025 9:49 PM CDT 01/20/2025 9:49 PM CDT us Jeffrey Osorio MD PhD LAB POCT ORDERABLES - DEVICE F inal Result Performing Organization Address [facility] Phone Number HERBER REINACH [address] [facility] [place] [address] * POCT glucose (01/20/2025 4:28 PM CDT) Glucose, POC 129 70 - 199 mg/dL Comment: Interpretive Data Glucose is assumed to be non-fasting. Fasting Glucose reference ranges are: 0 - 150 years: 70 mg/dL - 99 mg/dL Current interpretive data was last revised on 2013. POC Device Number [id number] 3 HERBER MARCANO Blood 01/20/2025 4:28 PM CDT 01/20/2025 4:28 PM CDT us Jeffrey Osorio MD PhD LAB POCT ORDERABLES - DEVICE F inal Result Performing Organization Address [facility] Phone Number HERBER JIMENEZWCH [address] [facility] [place] [address] * POCT glucose (01/20/2025 1:07 PM CDT) Glucose, POC 102 70 - 199 mg/dL Comment: Interpretive Data Glucose is assumed to be non-fasting. Fasting Glucose reference ranges are: 0 - 150 years: 70 mg/dL - 99 mg/dL Current interpretive data was last revised on 2013. POC Device Number [id number] 3 HERBER MARCANO Blood 01/20/2025 1:07 PM CDT 01/20/2025 1:07 PM CDT us Jeffrey Osorio MD PhD LAB POCT ORDERABLES - DEVICE F inal Result Performing Organization Address [facility]/ZIP Co de Phone Number HERBER REINACH [address] [employer] [place] [address] * (ABNORMAL) eGFR (01/20/2025 10:23 AM CDT) [...] BLOOD ORDERABLES Final Res ult HERBER MARCANO [address] [employer] [place] [address] * Differential, auto (01/20/2025 10:23 AM CDT) Neutrophil abs 2.98 1.50 - 6.50 K/cumm Imm gran abs 0.01 0.00 - 0.10 K/cumm [facility] Lymphocyte abs 1.16 0.80 - 3.30 K/cumm [facility] Monocyte abs 0.34 0.20 - 0.80 K/cumm [facility] Eosinophil abs 0.12 0.00 - 0.50 K/cumm HERBER MARCANO Basophil abs 0.00 0.00 - 0.10 K/cumm HERBER MARCANO Neutrophil pct 64.6 % [facility] Comment: Interpretive Data Percent cell count [...] on 2017. Basophil pct 0.0 % [facility] Comment: Interpretive Data Percent cell count reference ranges are not reported, since discordance with absolute values may lead to misinterpretation of CBC data. Current Interpretive Data was last revised on 2017. Blood 01/20/2025 10:2 3 AM CDT 01/20/2025 10:26 AM CDT us Jeffrey Osorio MD PhD LAB BLOOD ORDERABLES Final Res ult HERBER JIMENEZWCH [address] [facility] [place] [address] * (ABNORMAL) CBC with auto differential (01/20/2025 10:23 AM CDT) WBC 4.61 3.80 - 9.90 K/cumm Hgb 8.2(L) 11.9 - 15.5 g/dL [facility] Hct 26.9(L) 35.6 - 45.5 % [facility] Plt 309 150 - 400 K/cumm [facility] MPV 10.8 9.1 - 12.3 fL [facility] RBC 2.89(L) 3.90 - 5.20 M/cumm [facility] MCV 93.1 81.3 - 96.4 fL [facility] MCH 28.4 27.1 - 33.3 pg [facility] MCHC 30.5(L) 32.3 - 35.7 g/dL [facility] RDW CV 15.2(H) 11.1 - 14.9 % [facility] RDW SD 51.6(H) 35.7 - 48.1 fL [facility] NRBC abs 0.00 0.00 - 0.01 K/cumm [facility] Blood 01/20/2025 10:2 3 AM CDT 01/20/2025 10:26 AM CDT us Jeffrey Osorio MD PhD LAB BLOOD ORDERABLES Final Res ult [facility] [address] [facility] [place] [address] * (ABNORMAL) Renal function panel (01/20/2025 10:23 AM CDT) [facility] Sodium 137 135 - 145 mmol/L Potassium, pl 5.0(H) 3.3 - 4.9 mmol/L [facility] Chloride 100 97 - 110 mmol/L [facility] CO2 28 22 - 32 mmol/L [facility] Anion gap 9 2 - 15 mmol/L [facility] BUN 42(H) 6 - 25 mg/dL [facility] Creatinine 4.95(H) 0.60 - 1.10 mg/dL [facility] Glucose 110 70 - 199 mg/dL [facility] Comment: Interpretive Data Fasting glucose >/= [...] ORDERABLES Final Res ult Performing Organization Address [facility] Co de Phone Number [facility] [address] [employer] [place] [address] * POCT glucose (01/20/2025 9:51 AM CDT) [facility] Glucose, POC 111 70 - 199 mg/dL Comment: Interpretive Data Glucose is assumed to be non-fasting. Fasting Glucose reference ranges are: 0 - 150 years: 70 mg/dL - 99 mg/dL Current interpretive data was last revised on 2013. POC Device Number [id number] 3 [facility] Blood 01/20/2025 9:51 AM CDT 01/20/2025 9:51 AM CDT us Jeffrey Osorio MD PhD LAB POCT ORDERABLES - DEVICE F inal Result Performing Organization Address [facility] Co de Phone Number [facility] [address] [facility] [employer] [place], [place] [id number] * POCT glucose (01/20/2025 8:45 AM CDT) Glucose, POC 115 70 - 199 mg/dL Comment: Interpretive Data Glucose is assumed to be non-fasting. Fasting Glucose reference ranges are: 0 - 150 years: 70 mg/dL - 99 mg/dL Current interpretive data was last revised on 2013. POC Device Number [id number] 3 HERBER MARCANO Blood 01/20/2025 8:45 AM CDT 01/20/2025 8:45 AM CDT Jeffrey Osorio MD PhD LAB POCT ORDERABLES - DEVICE F inal Result Performing Organization Address [facility] de Phone Number [facility] [address] [address] [employer] [facility] [place] [address] * (ABNORMAL) POCT glucose (01/20/2025 8:02 AM CDT) Glucose, POC 67(L) 70 - 199 mg/dL Comment: Interpretive Data Glucose is assumed to be non-fasting. Fasting Glucose reference ranges are: 0 - 150 years: 70 mg/dL - 99 mg/dL Current interpretive data was last revised on 2013. POC Device Number [id number] 3 HERBER MARCANO Blood 01/20/2025 8:02 AM CDT 01/20/2025 8:02 AM CDT Jeffrey Osorio MD PhD LAB POCT ORDERABLES - DEVICE F inal Result Performing Organization Address [facility] de Phone Number [facility] [address] [facility] [place] [address] * POCT glucose (01/20/2025 5:49 AM CDT) Glucose, POC 122 70 - 199 mg/dL Comment: Interpretive Data Glucose is assumed to be non-fasting. Fasting Glucose reference ranges are: 0 - 150 years: 70 mg/dL - 99 mg/dL Current interpretive data was last revised on 2013. POC Device Number [id number] 3 HERBER MARCANO Blood 01/20/2025 5:49 AM CDT 01/20/2025 5:49 AM CDT Jeffrey Osorio MD PhD LAB POCT ORDERABLES - DEVICE F inal Result Performing Organization Address [facility] Phone Number HERBER JIMENEZCH [address] [facility] [place] [address] * POCT glucose (01/20/2025 1:57 AM CDT) Glucose, POC 127 70 - 199 mg/dL Comment: Interpretive Data Glucose is assumed to be non-fasting. Fasting Glucose reference ranges are: 0 - 150 years: 70 mg/dL - 99 mg/dL Current interpretive data was last revised on 2013. POC Device Number [id number] 4 HERBER MARCANO Blood 01/20/2025 1:57 AM CDT 01/20/2025 1:57 AM CDT Jeffrey Osorio MD PhD LAB POCT ORDERABLES - DEVICE F inal Result Performing Organization Address [facility] Phone Number HERBER JIMENEZWCH [address] [place] [address] * (ABNORMAL) POCT glucose (01/19/2025 10:01 PM CDT) Glucose, POC 243(H) 70 - 199 mg/dL Comment: Interpretive Data Glucose is assumed to be non-fasting. Fasting Glucose reference ranges are: 0 - 150 years: 70 mg/dL - 99 mg/dL Current interpretive data was last revised on 2013. POC Device Number [id number] HERBER JIMENEZWCH Glucose comment 1 RN/MD Notified HERBER MARCANO Blood 01/19/2025 10:0 1 PM CDT 01/19/2025 10:01 PM CDT Jeffrey Osorio MD PhD LAB POCT ORDERABLES - DEVICE F inal Result Performing Organization Address [facility] de Phone Number HERBER JIMENEZCH [address] [facility] [place] [address] * POCT glucose (01/19/2025 6:01 PM CDT) Glucose, POC 98 70 - 199 mg/dL Comment: Interpretive Data Glucose is assumed to be non-fasting. Fasting Glucose reference ranges are: 0 - 150 years: 70 mg/dL - 99 mg/dL Current interpretive data was last revised on 2013. POC Device Number [id number] 4 HERBER [employer]AH[employer] Blood 01/19/2025 6:01 PM CDT 01/19/2025 6:01 PM CDT Jeffrey Osorio MD PhD LAB POCT ORDERABLES - DEVICE F inal Result Performing Organization Address [facility] de Phone Number [facility] [address] [facility] [place] [address] * POCT glucose (01/19/2025 4:18 PM CDT) Glucose, POC 75 70 - 199 mg/dL Comment: Interpretive Data Glucose is assumed to be non-fasting. Fasting Glucose reference ranges are: 0 - 150 years: 70 mg/dL - 99 mg/dL Current interpretive data was last revised on 2013. POC Device Number [id number] 4 HERBER MARCANO Blood 01/19/2025 4:18 PM CDT 01/19/2025 4:18 PM CDT us Jeffrey Osorio MD PhD LAB POCT ORDERABLES - DEVICE F inal Result Performing Organization Address [facility] de Phone Number HERBER [facility] [address] [facility] [place] [address] * POCT glucose (01/19/2025 11:51 AM CDT) Glucose, POC 114 70 - 199 mg/dL Comment: Interpretive Data Glucose is assumed to be non-fasting. Fasting Glucose reference ranges are: 0 - 150 years: 70 mg/dL - 99 mg/dL Current interpretive data was last revised on 2013. POC Device Number [id number] 4 HERBER MARCANO Blood 01/19/2025 11:5 1 AM CDT 01/19/2025 11:51 AM CDT Jeffrey Osroio MD PhD LAB POCT ORDERABLES - DEVICE F inal Result Performing Organization Address [facility] de Phone Number [facility] [address] [facility] [employer] [place], [place] [phone] * POCT glucose (01/19/2025 10:04 AM CDT) Glucose, POC 137 70 - 199 mg/dL Comment: Interpretive Data Glucose is assumed to be non-fasting. Fasting Glucose reference ranges are: 0 - 150 years: 70 mg/dL - 99 mg/dL Current interpretive data was last revised on 2013. POC Device Number [id number] 4 HERBER MARCANO Blood 01/19/2025 10:0 4 AM CDT 01/19/2025 10:04 AM CDT Jeffrey Osorio MD PhD LAB POCT ORDERABLES - DEVICE F inal Result Performing Organization Address [facility] Phone Number [facility] [address] [facility] [employer] [place], [place] [id number] * POCT glucose (01/19/2025 6:33 AM CDT) Glucose, POC 71 70 - 199 mg/dL Comment: Interpretive Data Glucose is assumed to be non-fasting. Fasting Glucose reference ranges are: 0 - 150 years: 70 mg/dL - 99 mg/dL Current interpretive data was last revised on 2013. POC Device Number [id number] 3 HERBER MARCANO Blood 01/19/2025 6:33 AM CDT 01/19/2025 6:33 AM CDT us Jeffrey Osorio MD PhD LAB POCT ORDERABLES - DEVICE F inal Result Performing Organization Address [facility] Phone Number HERBER JIMENEZCH [address] [place] [address] * POCT glucose (01/19/2025 2:13 AM CDT) Glucose, POC 104 70 - 199 mg/dL Comment: Interpretive Data Glucose is assumed to be non-fasting. Fasting Glucose reference ranges are: 0 - 150 years: 70 mg/dL - 99 mg/dL Current interpretive data was last revised on 2013. POC Device Number [id number] 3 HERBER MARCANO Blood 01/19/2025 2:13 AM CDT 01/19/2025 2:13 AM CDT us Jeffrey Osorio MD PhD LAB POCT ORDERABLES - DEVICE F inal Result Performing Organization Address [facility] Phone Number HERBER JIMENEZCH [address] [facility] [place] [address] * POCT glucose (01/18/2025 9:50 PM CDT) Glucose, POC 97 70 - 199 mg/dL Comment: Interpretive Data Glucose is assumed to be non-fasting. Fasting Glucose reference ranges are: 0 - 150 years: 70 mg/dL - 99 mg/dL Current interpretive data was last revised on 2013. POC Device Number [id number] 3 HERBER MARCANO Blood 01/18/2025 9:50 PM CDT 01/18/2025 9:50 PM CDT us Jeffrey Osorio MD PhD LAB POCT ORDERABLES - DEVICE F inal Result Performing Organization Address [facility]/ZIP Co de Phone Number HERBER JIMENEZCH [address] [facility] [employer] [place], [place] [id number] * POCT glucose (01/18/2025 5:59 PM CDT) Glucose, POC 171 70 - 199 mg/dL Comment: Interpretive Data Glucose is assumed to be non-fasting. Fasting Glucose reference ranges are: 0 - 150 years: 70 mg/dL - 99 mg/dL Current interpretive data was last revised on 2013. POC Device Number [id number] HERBER JIMENEZWCYDNEY Blood 01/18/2025 5:59 PM CDT 01/18/2025 5:59 PM CDT us Jeffrey Osorio MD PhD LAB POCT ORDERABLES - DEVICE F inal Result Performing Organization Address [facility] de Phone Number [facility] [address] [facility] [employer] [place], [place] [id number] * POCT glucose (01/18/2025 12:15 PM CDT) Glucose, POC 143 70 - 199 mg/dL Comment: Interpretive Data Glucose is assumed to be non-fasting. Fasting Glucose reference ranges are: 0 - 150 years: 70 mg/dL - 99 mg/dL Current interpretive data was last revised on 2013. POC Device Number [id number] 3 HERBER MARCANO Blood 01/18/2025 12:1 5 PM CDT 01/18/2025 12:15 PM CDT us Jeffrey Osorio MD PhD LAB POCT ORDERABLES - DEVICE F inal Result Performing Organization Address [facility] de Phone Number HERBER JIMENEZWCH [address] [facility] [employer] [place], [place] [id number] * POCT glucose (01/18/2025 6:08 AM CDT) Glucose, POC 92 70 - 199 mg/dL Comment: Interpretive Data Glucose is assumed to be non-fasting. Fasting Glucose reference ranges are: 0 - 150 years: 70 mg/dL - 99 mg/dL Current interpretive data was last revised on 2013. POC Device Number [id number] 1 HERBER MARCANO Blood 01/18/2025 6:08 AM CDT 01/18/2025 6:08 AM CDT Jeffrey Osorio MD PhD LAB POCT ORDERABLES - DEVICE F inal Result Performing Organization Address [facility] de Phone Number [facility] [address] [facility] [employer] [place], [place] [id number] * POCT glucose (01/18/2025 2:09 AM CDT) Glucose, POC 107 70 - 199 mg/dL Comment: Interpretive Data Glucose is assumed to be non-fasting. Fasting Glucose reference ranges are: 0 - 150 years: 70 mg/dL - 99 mg/dL Current interpretive data was last revised on 2013. POC Device Number [id number] 4 HERBER MARCANO Blood 01/18/2025 2:09 AM CDT 01/18/2025 2:09 AM CDT Jeffrey Osorio MD PhD LAB POCT ORDERABLES - DEVICE F inal Result Performing Organization Address [facility] de Phone Number [facility] [address] [facility] [place] [address] * POCT glucose (01/17/2025 7:36 PM CDT) Glucose, POC 131 70 - 199 mg/dL Comment: Interpretive Data Glucose is assumed to be non-fasting. Fasting Glucose reference ranges are: 0 - 150 years: 70 mg/dL - 99 mg/dL Current interpretive data was last revised on 2013. POC Device Number [id number] 4 BERLINNER BARBARAWCH Blood 01/17/2025 7:36 PM CDT 01/17/2025 7:36 PM CDT us Jeffrey Osorio MD PhD LAB POCT ORDERABLES - DEVICE F inal Result Performing Organization Address [facility] Co de Phone Number HERBER JIMENEZCH [address] [facility] [place] [address] * POCT glucose (01/17/2025 5:40 PM CDT) Glucose, POC 161 70 - 199 mg/dL Comment: Interpretive Data Glucose is assumed to be non-fasting. Fasting Glucose reference ranges are: 0 - 150 years: 70 mg/dL - 99 mg/dL Current interpretive data was last revised on 2013. POC Device Number [id number] BERLINNER BARBARAWCH Blood 01/17/2025 5:40 PM CDT 01/17/2025 5:40 PM CDT us Jeffrey Osorio MD PhD LAB POCT ORDERABLES - DEVICE F inal Result Performing Organization Address [facility] de Phone Number HERBER JIMENEZWCH [address] [place] [address] * POCT glucose (01/17/2025 12:02 PM CDT) Glucose, POC 149 70 - 199 mg/dL Comment: Interpretive Data Glucose is assumed to be non-fasting. Fasting Glucose reference ranges are: 0 - 150 years: 70 mg/dL - 99 mg/dL Current interpretive data was last revised on 2013. POC Device Number [id number] 4 HERBER JIMENEZWCH Blood 01/17/2025 12:0 2 PM CDT 01/17/2025 12:02 PM CDT us Jeffrey Oosrio MD PhD LAB POCT ORDERABLES - DEVICE F inal Result Performing Organization Address [facility] Co de Phone Number HERBER JIMENEZCH [address] [place] [address] * POCT glucose (01/17/2025 8:19 AM CDT) Glucose, POC 198 70 - 199 mg/dL Comment: Interpretive Data Glucose is assumed to be non-fasting. Fasting Glucose reference ranges are: 0 - 150 years: 70 mg/dL - 99 mg/dL Current interpretive data was last revised on 2013. POC Device Number [id number] 1 HERBER MARCANO Blood 01/17/2025 8:19 AM CDT 01/17/2025 8:19 AM CDT Jeffrey Osorio MD PhD LAB POCT ORDERABLES - DEVICE F inal Result Performing Organization Address [facility] de Phone Number [facility] [address] [facility] [employer] [place], [place] [id number] * POCT glucose (01/17/2025 3:39 AM CDT) Glucose, POC 98 70 - 199 mg/dL Comment: Interpretive Data Glucose is assumed to be non-fasting. Fasting Glucose reference ranges are: 0 - 150 years: 70 mg/dL - 99 mg/dL Current interpretive data was last revised on 2013. POC Device Number [id number] 1 HERBER MARCANO Blood 01/17/2025 3:39 AM CDT 01/17/2025 3:39 AM CDT Jeffrey Osorio MD PhD LAB POCT ORDERABLES - DEVICE F inal Result Performing Organization Address [facility] Co de Phone Number [facility] [address] [facility] [employer] [place], [place] [id number] * POCT glucose (01/17/2025 1:03 AM CDT) Glucose, POC 101 70 - 199 mg/dL Comment: Interpretive Data Glucose is assumed to be non-fasting. Fasting Glucose reference ranges are: 0 - 150 years: 70 mg/dL - 99 mg/dL Current interpretive data was last revised on 2013. POC Device Number [id number] 4 HERBER MARCANO Blood 01/17/2025 1:03 AM CDT 01/17/2025 1:03 AM CDT Jeffrey Osorio MD PhD LAB POCT ORDERABLES - DEVICE F inal Result Performing Organization Address [facility] Phone Number [facility] [address] [facility] [place] [address] * POCT glucose (01/16/2025 11:58 PM CDT) Glucose, POC 110 70 - 199 mg/dL Comment: Interpretive Data Glucose is assumed to be non-fasting. Fasting Glucose reference ranges are: 0 - 150 years: 70 mg/dL - 99 mg/dL Current interpretive data was last revised on 2013. POC Device Number [id number] 4 HERBER MARCANO Blood 01/16/2025 11:5 8 PM CDT 01/16/2025 11:58 PM CDT Jeffrey Osorio MD PhD LAB POCT ORDERABLES - DEVICE F inal Result Performing Organization Address [facility] Phone Number [facility] [address] [place] [address] * POCT glucose (01/16/2025 11:40 PM CDT) Glucose, POC 98 70 - 199 mg/dL Comment: Interpretive Data Glucose is assumed to be non-fasting. Fasting Glucose reference ranges are: 0 - 150 years: 70 mg/dL - 99 mg/dL Current interpretive data was last revised on 2013. POC Device Number [id number] 4 BERLINNER LATOSHACH Blood 01/16/2025 11:4 0 PM CDT 01/16/2025 11:40 PM CDT us Jeffrey Osorio MD PhD LAB POCT ORDERABLES - DEVICE F inal Result Performing Organization Address [facility] de Phone Number HERBER JIMENEZCH [address] [facility] [place] [address] * POCT glucose (01/16/2025 11:23 PM CDT) Glucose, POC 93 70 - 199 mg/dL Comment: Interpretive Data Glucose is assumed to be non-fasting. Fasting Glucose reference ranges are: 0 - 150 years: 70 mg/dL - 99 mg/dL Current interpretive data was last revised on 2013. POC Device Number [id number] 4 CERNER BARBARAWCH Blood 01/16/2025 11:2 3 PM CDT 01/16/2025 11:23 PM CDT Jeffrey Osorio MD PhD LAB POCT ORDERABLES - DEVICE F inal Result Performing Organization Address [facility] de Phone Number [facility] [address] [facility] [place] [address] * (ABNORMAL) POCT glucose (01/16/2025 11:04 PM CDT) Glucose, POC 57(L) 70 - 199 mg/dL Comment: Interpretive Data Glucose is assumed to be non-fasting. Fasting Glucose reference ranges are: 0 - 150 years: 70 mg/dL - 99 mg/dL Current interpretive data was last revised on 2013. POC Device Number [id number] 4 CERNER BARBARAWCH Blood 01/16/2025 11:0 4 PM CDT 01/16/2025 11:04 PM CDT us Jeffrey Osorio MD PhD LAB POCT ORDERABLES - DEVICE F inal Result Performing Organization Address [facility] de Phone Number HERBER B[facility] [address] [facility] [place] [address] * (ABNORMAL) POCT glucose (01/16/2025 10:46 PM CDT) Glucose, POC 58(L) 70 - 199 mg/dL Comment: Interpretive Data Glucose is assumed to be non-fasting. Fasting Glucose reference ranges are: 0 - 150 years: 70 mg/dL - 99 mg/dL Current interpretive data was last revised on 2013. POC Device Number [id number] 4 HERBER MARCANO Blood 01/16/2025 10:4 6 PM CDT 01/16/2025 10:46 PM CDT Jeffrey Osorio MD PhD LAB POCT ORDERABLES - DEVICE F inal Result Performing Organization Address [facility] Co de Phone Number [facility] [address] [facility] [place] [address] * POCT glucose (01/16/2025 7:48 PM CDT) Glucose, POC 186 70 - 199 mg/dL Comment: Interpretive Data Glucose is assumed to be non-fasting. Fasting Glucose reference ranges are: 0 - 150 years: 70 mg/dL - 99 mg/dL Current interpretive data was last revised on 2013. POC Device Number [id number] 4 HERBER MARCANO Blood 01/16/2025 7:48 PM CDT 01/16/2025 7:48 PM CDT Jeffrey Osorio MD PhD LAB POCT ORDERABLES - DEVICE F inal Result Performing Organization Address [facility] de Phone Number [facility] [address] [facility] [employer] [place], [place] [id number] * POCT glucose (01/16/2025 4:32 PM CDT) Glucose, POC 134 70 - 199 mg/dL Comment: Interpretive Data Glucose is assumed to be non-fasting. Fasting Glucose reference ranges are: 0 - 150 years: 70 mg/dL - 99 mg/dL Current interpretive data was last revised on 2013. POC Device Number [id number] 4 HERBER MARCANO Blood 01/16/2025 4:32 PM CDT 01/16/2025 4:32 PM CDT us Jeffrey Osorio MD PhD LAB POCT ORDERABLES - DEVICE F inal Result Performing Organization Address [facility] Co de Phone Number [facility] [address] [place] [address] * POCT glucose (01/16/2025 12:40 PM CDT) Glucose, POC 195 70 - 199 mg/dL Comment: Interpretive Data Glucose is assumed to be non-fasting. Fasting Glucose reference ranges are: 0 - 150 years: 70 mg/dL - 99 mg/dL Current interpretive data was last revised on 2013. POC Device Number [id number] 4 HERBER MARCANO Blood 01/16/2025 12:4 0 PM CDT 01/16/2025 12:40 PM CDT us Jeffrey Osorio MD PhD LAB POCT ORDERABLES - DEVICE F inal Result Performing Organization Address [facility] Phone Number HERBER JIMENEZCH [address] [place] [address] * (ABNORMAL) POCT glucose (01/16/2025 9:13 AM CDT) Glucose, POC 210(H) 70 - 199 mg/dL Comment: Interpretive Data Glucose is assumed to be non-fasting. Fasting Glucose reference ranges are: 0 - 150 years: 70 mg/dL - 99 mg/dL Current interpretive data was last revised on 2013. POC Device Number [id number] 4 HERBER MARCANO Blood 01/16/2025 9:13 AM CDT 01/16/2025 9:13 AM CDT us Jeffrey Osorio MD PhD LAB POCT ORDERABLES - DEVICE F inal Result Performing Organization Address [facility]/ZIP Co de Phone Number [facility]BER J[facility]ENEZWCH [address] [employer] Department [place] [address] * (ABNORMAL) eGFR (01/16/2025 6:49 AM CDT) Pathologist [facility] eGFR 7(L) >=60 mL/min/1. 73 m2 Comment: [...] BLOOD ORDERABLES Marli lipscomb Result HERBER JIMENEZWCH [address] [employer] Department [place] [address] * (ABNORMAL) CBC without differential (01/16/2025 6:49 AM CDT) WBC 5.02 3.80 - 9.90 K/cumm Hgb 10.1(L) 11.9 - 15.5 g/dL [facility] Hct 32.7(L) 35.6 - 45.5 % [facility] Plt 396 150 - 400 K/cumm [facility] MPV 10.3 9.1 - 12.3 fL [facility] RBC 3.61(L) 3.90 - 5.20 M/cumm [facility] MCV 90.6 81.3 - 96.4 fL [facility] MCH 28.0 27.1 - 33.3 pg [facility] MCHC 30.9(L) 32.3 - 35.7 g/dL [facility] RDW CV 15.4(H) 11.1 - 14.9 % [facility] RDW SD 50.6(H) 35.7 - 48.1 fL [facility] NRBC abs 0.00 0.00 - 0.01 K/cumm [facility] Blood 01/16/2025 6:49 AM CDT 01/16/2025 7:01 AM CDT Parag Xie MD LAB BLOOD ORDERABLES Marli l Result [facility] [address] [facility] Department [place] [address] * (ABNORMAL) Basic metabolic panel (01/16/2025 6:49 AM CDT) Sodium 137 135 - 145 mmol/L Potassium, pl 4.5 3.3 - 4.9 mmol/L [facility] Chloride 97 97 - 110 mmol/L [facility] CO2 26 22 - 32 mmol/L [facility] Anion gap 14 2 - 15 mmol/L [facility] BUN 68(H) 6 - 25 mg/dL [facility] Creatinine 7.90(H) 0.60 - 1.10 mg/dL [facility] Glucose 126 70 - 199 mg/dL [facility] Comment: Interpretive Data Fasting glucose >/= [...] ORDERABLES Marli l Result Performing Organization Address [facility] de Phone Number [facility] [address] [facility] [place] [address] * POCT glucose (01/16/2025 3:16 AM CDT) Glucose, POC 112 70 - 199 mg/dL Comment: Interpretive Data Glucose is assumed to be non-fasting. Fasting Glucose reference ranges are: 0 - 150 years: 70 mg/dL - 99 mg/dL Current interpretive data was last revised on 2013. POC Device Number [id number] 1 HERBER MARCANO Blood 01/16/2025 3:16 AM CDT 01/16/2025 3:16 AM CDT Parag Xie MD LAB POCT ORDERABLES - DEV ICE Final Result Performing Organization Address [facility] de Phone Number [facility] [address] [facility] [place] [address] * POCT glucose (01/15/2025 11:41 PM CDT) Glucose, POC 72 70 - 199 mg/dL Comment: Interpretive Data Glucose is assumed to be non-fasting. Fasting Glucose reference ranges are: 0 - 150 years: 70 mg/dL - 99 mg/dL Current interpretive data was last revised on 2013. POC Device Number [id number] 1 HERBER JIMENEZWCYDNEY Blood 01/15/2025 11:4 1 PM CDT 01/15/2025 11:41 PM CDT Parag Xie MD LAB POCT ORDERABLES - DEV ICE Final Result Performing Organization Address [facility] de Phone Number [facility] [address] [facility] [place] [address] * POCT glucose (01/15/2025 8:45 PM CDT) Glucose, POC 85 70 - 199 mg/dL Comment: Interpretive Data Glucose is assumed to be non-fasting. Fasting Glucose reference ranges are: 0 - 150 years: 70 mg/dL - 99 mg/dL Current interpretive data was last revised on 2013. POC Device Number [id number] 1 HERBER MARCANO Blood 01/15/2025 8:45 PM CDT 01/15/2025 8:45 PM CDT Parag Xie MD LAB POCT ORDERABLES - DEV ICE Final Result Performing Organization Address [facility] de Phone Number [facility] JIMENEZWCH [address] [facility] [place] [address] * POCT glucose (01/15/2025 7:01 PM CDT) Glucose, POC 121 70 - 199 mg/dL Comment: Interpretive Data Glucose is assumed to be non-fasting. Fasting Glucose reference ranges are: 0 - 150 years: 70 mg/dL - 99 mg/dL Current interpretive data was last revised on 2013. POC Device Number [id number] 1 HERBER MARCANO Blood 01/15/2025 7:01 PM CDT 01/15/2025 7:01 PM CDT Parag Xie MD LAB POCT ORDERABLES - DEV ICE Final Result Performing Organization Address [facility] de Phone Number [facility]BER [facility] [address] [facility] [place] [address] * POCT hCG, urine (01/15/2025 4:15 PM [...] it. Electronically signed by: Arielle Sharpe M.D. Oidlon Correa MD PhD IMG CT PROCEDURES F [...] tendency for uric acid stone formation. Source: [facility] Current Interpretive Data was last revised [...] GENERAL ORDERABLES Final Result Performing Organization Address [facility] de Phone Number [facility] [address] [place] [address] * (ABNORMAL) Urinalysis, microscopic only [...] ORDERABLE S Final Result Performing Organization Address [facility] Co de Phone Number HERBER JIMENEZCH [address] [place] [address] * (ABNORMAL) eGFR (01/15/2025 3:18 PM CDT) Pathologist [facility] eGFR 7(L) >=60 mL/min/1. 73 m2 Comment: [...] LAB BLOOD ORDERABLES Fin al Result [facility] [address] [facility] Department [place] [address] * Differential, auto (01/15/2025 3:18 PM CDT) Pathologist [facility] Neutrophil abs 2.90 1.50 - 6.50 K/cumm [...] LAB BLOOD ORDERABLES Fin al Result [facility] [address] [facility] Department [place] [address] * (ABNORMAL) CBC with auto differential (01/15/2025 3:18 PM CDT) WBC 4.76 3.80 - 9.90 K/cumm Hgb 9.5(L) 11.9 - 15.5 g/dL HERBER MARCANO Hct 30.9(L) 35.6 - 45.5 % [facility] Plt 372 150 - 400 K/cumm [facility] MPV 10.4 9.1 - 12.3 fL [facility] RBC 3.40(L) 3.90 - 5.20 M/cumm [facility] MCV 90.9 81.3 - 96.4 fL [facility] MCH 27.9 27.1 - 33.3 pg [facility] MCHC 30.7(L) 32.3 - 35.7 g/dL [facility] RDW CV 15.5(H) 11.1 - 14.9 % [facility] RDW SD 50.7(H) 35.7 - 48.1 fL [facility] NRBC abs 0.00 0.00 - 0.01 K/cumm [facility] Blood Venous blood specimen / Unknown 01/15/2025 3:18 PM CDT 01/15/2025 3:21 PM CDT us Odilon Correa MD PhD LAB BLOOD ORDERABLE S Final Result [facility] [address] [facility] Department [place] [address] * (ABNORMAL) Comprehensive metabolic panel (01/15/2025 3:18 PM CDT) Sodium 139 135 - 145 mmol/L Potassium, pl 4.8 3.3 - 4.9 mmol/L [facility] Chloride 98 97 - 110 mmol/L [facility] CO2 23 22 - 32 mmol/L [facility] Anion gap 18(H) 2 - 15 mmol/L [facility] BUN 67(H) 6 - 25 mg/dL [facility] Creatinine 7.31(H) 0.60 - 1.10 mg/dL [facility] Glucose 176 70 - 199 mg/dL [facility] Comment: Interpretive Data Fasting glucose >/= [...] ORDERABLE S Final Result Performing Organization Address City/State/[facility] Co de Phone Number HERBER REINACH [address] [facility] Department [place] [address] * (ABNORMAL) POCT glucose (01/12/2025 10:49 AM CDT) [facility] Signature Glucose, POC 270(H) 70 - 199 mg/dL Comment: Interpretive Data Glucose is assumed to be non-fasting. Fasting Glucose reference ranges are: 0 - 150 years: 70 mg/dL - 99 mg/dL Current interpretive data was last revised on 2013. POC Device Number [id number] 4 CERLULY JIMENEZWCH Blood 01/12/2025 10:4 9 AM CDT 01/12/2025 10:49 AM CDT us Parga Xie MD LAB POCT ORDERABLES - DEV ICE Final Result [facility] REIN[facility] [address] [facility] [place] [address] * (ABNORMAL) POCT glucose (01/12/2025 8:11 AM CDT) Glucose, POC 343(H) 70 - 199 mg/dL Comment: Interpretive Data Glucose is assumed to be non-fasting. Fasting Glucose reference ranges are: 0 - 150 years: 70 mg/dL - 99 mg/dL Current interpretive data was last revised on 2013. POC Device Number [id number] 1 HERBER MARCANO Blood 01/12/2025 8:11 AM CDT 01/12/2025 8:11 AM CDT us Parag Xie MD LAB POCT ORDERABLES - DEV ICE Final Result Performing Organization Address [facility] de Phone Number HER[facility] JIMENEZWCH [address] [facility] [place] [address] * POCT glucose (01/11/2025 11:44 PM CDT) Glucose, POC 129 70 - 199 mg/dL Comment: Interpretive Data Glucose is assumed to be non-fasting. Fasting Glucose reference ranges are: 0 - 150 years: 70 mg/dL - 99 mg/dL Current interpretive data was last revised on 2013. POC Device Number [id number] 1 HERBER MARCANO Blood 01/11/2025 11:4 4 PM CDT 01/11/2025 11:44 PM CDT Parag Xie MD LAB POCT ORDERABLES - DEV ICE Final Result Performing Organization Address [facility] de Phone Number HERBER [facility] [address] [facility] [place] [address] * POCT glucose (01/11/2025 10:23 PM CDT) Glucose, POC 170 70 - 199 mg/dL Comment: Interpretive Data Glucose is assumed to be non-fasting. Fasting Glucose reference ranges are: 0 - 150 years: 70 mg/dL - 99 mg/dL Current interpretive data was last revised on 2013. POC Device Number [id number] 1 HERBER MARCANO Blood 01/11/2025 10:2 3 PM CDT 01/11/2025 10:23 PM CDT Parag Xie MD LAB POCT ORDERABLES - DEV ICE Final Result Performing Organization Address [facility] de Phone Number [facility] [address] [facility] [employer] [place], [place] [address] * (ABNORMAL) POCT glucose (01/11/2025 8:33 PM CDT) Glucose, POC 225(H) 70 - 199 mg/dL Comment: Interpretive Data Glucose is assumed to be non-fasting. Fasting Glucose reference ranges are: 0 - 150 years: 70 mg/dL - 99 mg/dL Current interpretive data was last revised on 2013. POC Device Number [id number] 4 HERBER MARCANO Blood 01/11/2025 8:33 PM CDT 01/11/2025 8:33 PM CDT Parag Xie MD LAB POCT ORDERABLES - DEV ICE Final Result Performing Organization Address [facility] de Phone Number [facility] [address] [address] [employer] [facility] [place] [address] * (ABNORMAL) POCT glucose (01/11/2025 7:01 PM CDT) Glucose, POC 203(H) 70 - 199 mg/dL Comment: Interpretive Data Glucose is assumed to be non-fasting. Fasting Glucose reference ranges are: 0 - 150 years: 70 mg/dL - 99 mg/dL Current interpretive data was last revised on 2013. POC Device Number [id number] 4 HERBER MARCANO Blood 01/11/2025 7:01 PM CDT 01/11/2025 7:01 PM CDT Parag Xie MD LAB POCT ORDERABLES - DEV ICE Final Result Performing Organization Address [facility] Co de Phone Number HERBER REINACH [address] [facility] [place] [address] * POCT glucose (01/11/2025 5:03 PM CDT) Glucose, POC 142 70 - 199 mg/dL Comment: Interpretive Data Glucose is assumed to be non-fasting. Fasting Glucose reference ranges are: 0 - 150 years: 70 mg/dL - 99 mg/dL Current interpretive data was last revised on 2013. POC Device Number [id number] 4 HERBER JIMENEZWCH Blood 01/11/2025 5:03 PM CDT 01/11/2025 5:03 PM CDT Parag Xie MD LAB POCT ORDERABLES - DEV ICE Final Result Performing Organization Address [facility] de Phone Number HERBER JIMENEZ[facility] [address] [place] [address] * POCT glucose (01/11/2025 12:02 PM CDT) Glucose, POC 87 70 - 199 mg/dL Comment: Interpretive Data Glucose is assumed to be non-fasting. Fasting Glucose reference ranges are: 0 - 150 years: 70 mg/dL - 99 mg/dL Current interpretive data was last revised on 2013. POC Device Number [id number] 9 CERNER BARBARAWCH Blood 01/11/2025 12:0 2 PM CDT 01/11/2025 12:02 PM CDT Parag Xie MD LAB POCT ORDERABLES - DEV ICE Final Result Performing Organization Address [facility] de Phone Number [facility] [address] [facility] Department [place] [address] * POCT glucose (01/11/2025 9:14 AM CDT) Glucose, POC 194 70 - 199 mg/dL Comment: Interpretive Data Glucose is assumed to be non-fasting. Fasting Glucose reference ranges are: 0 - 150 years: 70 mg/dL - 99 mg/dL Current interpretive data was last revised on 2013. POC Device Number [id number] 9 HERBER REINACH Blood 01/11/2025 9:14 AM CDT 01/11/2025 9:14 AM CDT us Parag Xie MD LAB POCT ORDERABLES - DEV ICE Final Result [facility] [address] [facility] [place] [address] * (ABNORMAL) eGFR (01/11/2025 8:27 AM CDT) [facility] eGFR 8(L) >=60 mL/min/1. 73 m2 Comment: [...] ORDERABLES Final Re sult Performing Organization Address [facility] Co de Phone Number HERBER JIMENEZCH [address] [facility] [place] [address] * (ABNORMAL) Phosphorus (01/11/2025 8:27 AM CDT) Phosphorus, pl 6.9(H) 2.3 - 4.5 mg/dL Blood 01/11/2025 8:27 AM CDT 01/11/2025 8:35 AM CDT Narrative HERBER MARCANO - 01/11/2025 8:53 AM CDT Please draw with dialysis Lisbet Franz MD LAB BLOOD ORDERABLES Final Re sult Performing Organization Address [facility] de Phone Number HERBER BJCH [phone] [employer] [facility] [place] [address] * Magnesium (01/11/2025 8:27 AM CDT) Magnesium [...] ORDERABLES Final Re sult Performing Organization Address [facility] Co de Phone Number HERBER JIMENEZWCH [address] [facility] [place] [address] * (ABNORMAL) Basic metabolic panel (01/11/2025 8:27 AM CDT) Sodium 139 135 - 145 mmol/L Potassium, pl 4.1 3.3 - 4.9 mmol/L [facility] Chloride 103 97 - 110 mmol/L [facility] CO2 23 22 - 32 mmol/L [facility] Anion gap 13 2 - 15 mmol/L [facility] BUN 45(H) 6 - 25 mg/dL [facility] Creatinine 6.97(H) 0.60 - 1.10 mg/dL [facility] Glucose 237(H) 70 - 199 mg/dL [facility] Comment: Interpretive Data Fasting glucose >/= [...] 2022. Calcium 7.1(L) 8.5 - 10.3 mg/dL [facility] Blood 01/11/2025 8:27 AM CDT 01/11/2025 8:35 AM CDT Narrative [facility] - 01/11/2025 8:53 AM CDT Please draw with dialysis us Lisbet Franz MD LAB BLOOD ORDERABLES Final Re sult [facility] [address] [facility]. Department of Laboratories [place], [place] [id number] * (ABNORMAL) POCT glucose (01/11/2025 7:52 AM CDT) [facility] Glucose, POC 249(H) 70 - 199 mg/dL Comment: Interpretive Data Glucose is assumed to be non-fasting. Fasting Glucose reference ranges are: 0 - 150 years: 70 mg/dL - 99 mg/dL Current interpretive data was last revised on 2013. POC Device Number [id number] 9 HERBER MARCANO Blood 01/11/2025 7:52 AM CDT 01/11/2025 7:52 AM CDT Parag Xie MD LAB POCT ORDERABLES - DEV ICE Final Result Performing Organization Address [facility] Phone Number HERBRE JIMENEZCH [address] [facility] [place] [address] * (ABNORMAL) POCT glucose (01/11/2025 4:35 AM CDT) Glucose, POC 267(H) 70 - 199 mg/dL Comment: Interpretive Data Glucose is assumed to be non-fasting. Fasting Glucose reference ranges are: 0 - 150 years: 70 mg/dL - 99 mg/dL Current interpretive data was last revised on 2013. POC Device Number [id number] BERLINLULY JIMENEZWCH Glucose comment 1 RN/MD Notified HERBER MARCANO Blood 01/11/2025 4:35 AM CDT 01/11/2025 4:35 AM CDT Parag Xie MD LAB POCT ORDERABLES - DEV ICE Final Result Performing Organization Address [facility] Phone Number HERBER REINACH [address] [place] [address] * (ABNORMAL) POCT glucose (01/10/2025 11:36 PM CDT) Glucose, POC 220(H) 70 - 199 mg/dL Comment: Interpretive Data Glucose is assumed to be non-fasting. Fasting Glucose reference ranges are: 0 - 150 years: 70 mg/dL - 99 mg/dL Current interpretive data was last revised on 2013. POC Device Number [id number] BERLINNER BARBARAWCH Glucose comment 1 RN/MD Notified HERBER MARCANO Blood 01/10/2025 11:3 6 PM CDT 01/10/2025 11:36 PM CDT Parag Xie MD LAB POCT ORDERABLES - DEV ICE Final Result Performing Organization Address [facility] de Phone Number [facility] [address] [facility] [employer] [place], [place] [id number] * POCT glucose (01/10/2025 9:11 PM CDT) Glucose, POC 142 70 - 199 mg/dL Comment: Interpretive Data Glucose is assumed to be non-fasting. Fasting Glucose reference ranges are: 0 - 150 years: 70 mg/dL - 99 mg/dL Current interpretive data was last revised on 2013. POC Device Number [id number] 9 HERBER MARCANO Blood 01/10/2025 9:11 PM CDT 01/10/2025 9:11 PM CDT Parag Xie MD LAB POCT ORDERABLES - DEV ICE Final Result Performing Organization Address [facility] de Phone Number HERBER JIMENEZCH [address] [facility] [place] [address] * POCT glucose (01/10/2025 7:44 PM CDT) Glucose, POC 159 70 - 199 mg/dL Comment: Interpretive Data Glucose is assumed to be non-fasting. Fasting Glucose reference ranges are: 0 - 150 years: 70 mg/dL - 99 mg/dL Current interpretive data was last revised on 2013. POC Device Number [id number] 9 HERBER MARCANO Blood 01/10/2025 7:44 PM CDT 01/10/2025 7:44 PM CDT Parag Xie MD LAB POCT ORDERABLES - DEV ICE Final Result Performing Organization Address [facility] de Phone Number HERBER BJWCH [address] [facility] [place] [address] * (ABNORMAL) POCT glucose (01/10/2025 5:29 PM CDT) Glucose, POC 230(H) 70 - 199 mg/dL Comment: Interpretive Data Glucose is assumed to be non-fasting. Fasting Glucose reference ranges are: 0 - 150 years: 70 mg/dL - 99 mg/dL Current interpretive data was last revised on 2013. POC Device Number [id number] 9 HERBER MARCANO Blood 01/10/2025 5:29 PM CDT 01/10/2025 5:29 PM CDT Parag Xie MD LAB POCT ORDERABLES - DEV ICE Final Result Performing Organization Address [facility] de Phone Number [facility] [address] [facility] [employer] [place], [place] [id number] * (ABNORMAL) POCT glucose (01/10/2025 1:56 PM CDT) Glucose, POC 233(H) 70 - 199 mg/dL Comment: Interpretive Data Glucose is assumed to be non-fasting. Fasting Glucose reference ranges are: 0 - 150 years: 70 mg/dL - 99 mg/dL Current interpretive data was last revised on 2013. POC Device Number [id number] 9 HERBER REINA Blood 01/10/2025 1:56 PM CDT 01/10/2025 1:56 PM CDT Parag Xie MD LAB POCT ORDERABLES - DEV ICE Final Result Performing Organization Address [facility] de Phone Number [facility] BJW[facility] [address] [facility] [employer] [place], [place] [id number] * (ABNORMAL) POCT glucose (01/10/2025 12:01 PM CDT) Glucose, POC 331(H) 70 - 199 mg/dL Comment: Interpretive Data Glucose is assumed to be non-fasting. Fasting Glucose reference ranges are: 0 - 150 years: 70 mg/dL - 99 mg/dL Current interpretive data was last revised on 2013. POC Device Number [id number] 4 HERBER MARCANO Blood 01/10/2025 12:0 1 PM CDT 01/10/2025 12:01 PM CDT Parag Xie MD LAB POCT ORDERABLES - DEV ICE Final Result Performing Organization Address [facility] Phone Number HERBER JIMENEZWCH [address] [facility] [place] [address] * (ABNORMAL) POCT glucose (01/10/2025 10:22 AM CDT) Glucose, POC 335(H) 70 - 199 mg/dL Comment: Interpretive Data Glucose is assumed to be non-fasting. Fasting Glucose reference ranges are: 0 - 150 years: 70 mg/dL - 99 mg/dL Current interpretive data was last revised on 2013. POC Device Number [id number] HERBER JIMENEZWCH Glucose comment 1 RN/MD Notified HERBER MARCANO Blood 01/10/2025 10:2 2 AM CDT 01/10/2025 10:22 AM CDT Parag Xie MD LAB POCT ORDERABLES - DEV ICE Final Result Performing Organization Address [facility] Phone Number HERBER BJWCH [address] [place] [address] * POCT glucose (01/10/2025 7:57 AM CDT) Glucose, POC 185 70 - 199 mg/dL Comment: Interpretive Data Glucose is assumed to be non-fasting. Fasting Glucose reference ranges are: 0 - 150 years: 70 mg/dL - 99 mg/dL Current interpretive data was last revised on 2013. POC Device Number [id number] 4 HERBER MARCANO Blood 01/10/2025 7:57 AM CDT 01/10/2025 7:57 AM CDT Parag Xie MD LAB POCT ORDERABLES - DEV ICE Final Result Performing Organization Address [facility] de Phone Number HERBER BJWCH [address] [facility] [place] [address] * POCT glucose (01/10/2025 4:07 AM CDT) Glucose, POC 114 70 - 199 mg/dL Comment: Interpretive Data Glucose is assumed to be non-fasting. Fasting Glucose reference ranges are: 0 - 150 years: 70 mg/dL - 99 mg/dL Current interpretive data was last revised on 2013. POC Device Number [id number] 4 [facility] BJW[facility] Blood 01/10/2025 4:07 AM CDT 01/10/2025 4:07 AM CDT Parag Xie MD LAB POCT ORDERABLES - DEV ICE Final Result Performing Organization Address [facility] de Phone Number HERBER BJWCH [phone] [facility] [place] [address] * (ABNORMAL) eGFR (01/10/2025 4:02 AM CDT) [...] ORDERABLES Marli lipscomb Result Performing Organization Address [facility] Co de Phone Number HERBER MARCANO [address] [facility] [place] [address] * (ABNORMAL) CBC without differential (01/10/2025 4:02 AM CDT) WBC 4.58 3.80 - 9.90 K/cumm Hgb 9.0(L) 11.9 - 15.5 g/dL CERNER BJW[facility] Hct 28.2(L) 35.6 - 45.5 % CERNER BJW[facility] Plt 274 150 - 400 K/cumm CERNER B[facility] MPV 10.6 9.1 - 12.3 fL [facility] RBC 3.18(L) 3.90 - 5.20 M/cumm CERNER [facility] MCV 88.7 81.3 - 96.4 fL CERNER B[facility] MCH 28.3 27.1 - 33.3 pg C[facility]ER [facility] MCHC 31.9(L) 32.3 - 35.7 g/dL CERNER [facility] RDW CV 15.2(H) 11.1 - 14.9 % [facility] RDW SD 48.3(H) 35.7 - 48.1 fL [facility] NRBC abs 0.00 0.00 - 0.01 K/cumm [facility] Blood 01/10/2025 4:02 AM CDT 01/10/2025 4:20 AM CDT Parag Xie MD LAB BLOOD ORDERABLES Marli lipscomb Result Performing Organization Address [facility] Co de Phone Number HERBER MARCANO [address] [employer] [facility] [place] [address] * (ABNORMAL) Basic metabolic panel (01/10/2025 4:02 AM CDT) Sodium 136 135 - 145 mmol/L Potassium, pl 3.5 3.3 - 4.9 mmol/L [facility] Chloride 98 97 - 110 mmol/L [facility] CO2 24 22 - 32 mmol/L [facility] Anion gap 14 2 - 15 mmol/L [facility] BUN 22 6 - 25 mg/dL [facility] Creatinine 5.00(H) 0.60 - 1.10 mg/dL [facility] Glucose 109 70 - 199 mg/dL [facility] Comment: Interpretive Data Fasting glucose >/= [...] 2022. Calcium 7.7(L) 8.5 - 10.3 mg/dL [facility] Blood 01/10/2025 4:02 AM CDT 01/10/2025 4:20 AM CDT Parag Xie MD LAB BLOOD ORDERABLES Marli l Result HERBER JIMENEZWCH [address] [facility] [place] [address] * POCT glucose (01/09/2025 11:05 PM CDT) Glucose, POC 159 70 - 199 mg/dL Comment: Interpretive Data Glucose is assumed to be non-fasting. Fasting Glucose reference ranges are: 0 - 150 years: 70 mg/dL - 99 mg/dL Current interpretive data was last revised on 2013. POC Device Number [id number] 1 [facility] Blood 01/09/2025 11:0 5 PM CDT 01/09/2025 11:05 PM CDT Parag Xie MD LAB POCT ORDERABLES - DEV ICE Final Result Performing Organization Address [facility] Co de Phone Number HERBER MARCANO [address] [facility] [place] [address] * (ABNORMAL) POCT glucose (01/09/2025 10:22 PM CDT) Glucose, POC 60(L) 70 - 199 mg/dL Comment: Interpretive Data Glucose is assumed to be non-fasting. Fasting Glucose reference ranges are: 0 - 150 years: 70 mg/dL - 99 mg/dL Current interpretive data was last revised on 2013. POC Device Number [id number] 1 HERBER MARCANO Blood 01/09/2025 10:2 2 PM CDT 01/09/2025 10:22 PM CDT Parag Xie MD LAB POCT ORDERABLES - DEV ICE Final Result Performing Organization Address [facility] de Phone Number HERBER JIMENEZCH [address] [facility] [place] [address] * POCT glucose (01/09/2025 8:46 PM CDT) Glucose, POC 80 70 - 199 mg/dL Comment: Interpretive Data Glucose is assumed to be non-fasting. Fasting Glucose reference ranges are: 0 - 150 years: 70 mg/dL - 99 mg/dL Current interpretive data was last revised on 2013. POC Device Number [id number] 1 HERBER MARCANO Blood 01/09/2025 8:46 PM CDT 01/09/2025 8:46 PM CDT Parag Xie MD LAB POCT ORDERABLES - DEV ICE Final Result Performing Organization Address City/[facility] Co de Phone Number HERBER JIMENEZCH [address] [facility] [place] [address] * POCT glucose (01/09/2025 6:06 PM CDT) Glucose, POC 193 70 - 199 mg/dL Comment: Interpretive Data Glucose is assumed to be non-fasting. Fasting Glucose reference ranges are: 0 - 150 years: 70 mg/dL - 99 mg/dL Current interpretive data was last revised on 2013. POC Device Number [id number] 4 HERBER REINA Blood 01/09/2025 6:06 PM CDT 01/09/2025 6:06 PM CDT Parag Xie MD LAB POCT ORDERABLES - DEV ICE Final Result Performing Organization Address [facility] de Phone Number [facility] [address] [facility] [place] [address] * (ABNORMAL) POCT glucose (01/09/2025 5:41 PM CDT) Glucose, POC 64(L) 70 - 199 mg/dL Comment: Interpretive Data Glucose is assumed to be non-fasting. Fasting Glucose reference ranges are: 0 - 150 years: 70 mg/dL - 99 mg/dL Current interpretive data was last revised on 2013. POC Device Number [id number] 4 [facility] Blood 01/09/2025 5:41 PM CDT 01/09/2025 5:41 PM CDT Parag Xie MD LAB POCT ORDERABLES - DEV ICE Final Result Performing Organization Address [facility] Co de Phone Number [facility] [address] [facility] [place] [address] * POCT glucose (01/09/2025 5:05 PM CDT) Glucose, POC 100 70 - 199 mg/dL Comment: Interpretive Data Glucose is assumed to be non-fasting. Fasting Glucose reference ranges are: 0 - 150 years: 70 mg/dL - 99 mg/dL Current interpretive data was last revised on 2013. POC Device Number [id number] 4 HERBER REINACH Blood 01/09/2025 5:05 PM CDT 01/09/2025 5:05 PM CDT us Parag Xie MD LAB POCT ORDERABLES - DEV ICE Final Result Performing Organization Address [facility] de Phone Number [facility] BJWCH [address] [employer] [place] [address] * (ABNORMAL) POCT glucose (01/09/2025 2:05 PM CDT) Pathologist [facility] Glucose, POC 228(H) 70 - 199 mg/dL Comment: Interpretive Data Glucose is assumed to be non-fasting. Fasting Glucose reference ranges are: 0 - 150 years: 70 mg/dL - 99 mg/dL Current interpretive data was last revised on 2013. POC Device Number [id number] 4 HERBER BJWCH Blood 01/09/2025 2:05 PM CDT 01/09/2025 2:05 PM CDT us Parag Xie MD LAB POCT ORDERABLES - DEV ICE Final Result Performing Organization Address [facility] de Phone Number [facility] BJW[facility] [address] [facility] [place] [address] * Hepatitis B Surface Antigen Blood (01/09/2025 1:16 PM CDT) Pathologist [facility] HepBsAg Nonreactive Nonreactive Comment:Testing performed by : [facility], [facility] [facility], [place]., [address] Blood 01/09/2025 1:16 PM CDT 01/09/2025 2:13 PM CDT us Russell Weller MD LAB MICROBIOLOGY - GENER AL ORDERABLES Final Result Performing Organization Address [facility] de Phone Number HERBER JIMENEZCH [address] [facility] [place] [address] * (ABNORMAL) POCT glucose (01/09/2025 12:44 PM CDT) Glucose, POC 298(H) 70 - 199 mg/dL Comment: Interpretive Data Glucose is assumed to be non-fasting. Fasting Glucose reference ranges are: 0 - 150 years: 70 mg/dL - 99 mg/dL Current interpretive data was last revised on 2013. POC Device Number [id number] 4 CERLULY JIMENEZWCH Blood 01/09/2025 12:4 4 PM CDT 01/09/2025 12:44 PM CDT Parag Xie MD LAB POCT ORDERABLES - DEV ICE Final Result Performing Organization Address [facility] Phone Number [facility] [address] [facility] [place] [address] * (ABNORMAL) POCT glucose (01/09/2025 12:00 PM CDT) Glucose, POC 342(H) 70 - 199 mg/dL Comment: Interpretive Data Glucose is assumed to be non-fasting. Fasting Glucose reference ranges are: 0 - 150 years: 70 mg/dL - 99 mg/dL Current interpretive data was last revised on 2013. POC Device Number [id number] 4 CERNER BARBARAW Blood 01/09/2025 12:0 0 PM CDT 01/09/2025 12:00 PM CDT Parag Xie MD LAB POCT ORDERABLES - DEV ICE Final Result Performing Organization Address [facility] de Phone Number [facility] [address] [facility] [place] [address] * (ABNORMAL) POCT glucose (01/09/2025 10:55 AM CDT) Glucose, POC 358(H) 70 - 199 mg/dL Comment: Interpretive Data Glucose is assumed to be non-fasting. Fasting Glucose reference ranges are: 0 - 150 years: 70 mg/dL - 99 mg/dL Current interpretive data was last revised on 2013. POC Device Number [id number] 4 HERBER BJW[facility] Blood 01/09/2025 10:5 5 AM CDT 01/09/2025 10:55 AM CDT us Parag Xie MD LAB POCT ORDERABLES - DEV ICE Final Result HERBER REINACH [address] [facility]. [place] [address] * IR Gastrojejunostomy Tube Placement (01/09/2025 10:32 AM CDT) Anatomical Region Laterality Modality Body N/A X-Ray Angiograph y 01/09/2025 4:17 PM CDT Impressions 01/09/2025 4:17 PM CDT Successful placement of a 18 Arabic Arlene single lumen gastrojejunostomy catheter. PLAN: The [...] was obtained. Prior to beginning the procedure, [place] Protocol was performed to confirm the patient's [...] was obtained. Prior to beginning the procedure, [place] Protocol was performed to confirm the patient's [...] jejunum. IMPRESSION: Successful placement of a 18 Arabic Arlene single lumen gastrojejunostomy catheter. PLAN: The catheter is ready for feeding immediately through the jejunal port. Please flush the catheter with 20 cc of water after every feed and once each shift. Never attempt to administer crushed pills through the jejunal lumen. Electronically signed by: Jamie Bell M.D. Yessenia Dominguez MD [facility] IR PROCEDURES Final Res ult * TX AN ELECTIVE ENDOTRACHEAL AIRWAY, TX AN PROCEDURE PLACEHOLDER (01/09/2025 9:43 AM CDT) [...] last revised on 2013. POC Device Number [id number] 9 HERBER B[facility] Blood 01/09/2025 9:02 AM CDT 01/09/2025 9:02 AM CDT Parag Xie MD LAB POCT ORDERABLES - DEV ICE Final Result HERBER BJW[facility] [address] [facility] [place] [address] * POCT hCG, urine (01/09/2025 8:59 AM [...] last revised on 2013. POC Device Number [id number] HERBER MARCANO Blood 01/09/2025 7:09 AM CDT 01/09/2025 7:09 AM CDT Parag Xie MD LAB POCT ORDERABLES - DEV ICE Final Result Performing Organization Address [facility] de Phone Number HERBER JIMENEZCH [address] [employer] [facility] [place] [address] * POCT glucose (01/09/2025 4:11 AM CDT) Glucose, POC 130 70 - 199 mg/dL Comment: Interpretive Data Glucose is assumed to be non-fasting. Fasting Glucose reference ranges are: 0 - 150 years: 70 mg/dL - 99 mg/dL Current interpretive data was last revised on 2013. POC Device Number [id number] 4 HERBRE JIMENEZWCH Blood 01/09/2025 4:11 AM CDT 01/09/2025 4:11 AM CDT Yessenia Dominguez MD LAB POCT ORDERABLES - DEVIC E Final Result Performing Organization Address [facility] de Phone Number HERBER BJWCH [address] [employer]. [place] [address] * Beta-hydroxybutyrate (01/09/2025 12:50 AM CDT) Beta-Hydroxybut yrate <0.5 0.0 - 0.5 mmol/L Blood 01/09/2025 12:5 0 AM CDT 01/09/2025 12:57 AM CDT Yessenia Dominguez MD LAB BLOOD ORDERABLES Edited Result - Final Performing Organization Address [facility] de Phone Number HERBER BJWCH [address] [facility] [place] [address] * (ABNORMAL) eGFR (01/09/2025 12:49 AM CDT) [...] Final Result Performing Organization Address City/State/ZIP Co ok Phone Number HERBER BJWCH [address] [facility] [place] [address] * Blood gas, venous (01/09/2025 12:49 AM CDT) pH, Venous 7.34 7.32 - 7.43 PCO2, Venous 42 40 - 50 mmHg [facility] PO2, Venous 60 mmHg [facility] Comment: Interpretive Data No reference range established. Current interpretive data was last revised 2019. HCO3 Venous, Calculated 23 20 - 30 mmol/L HERBER [facility] BE, venous -3 mmol/L [facility] Comment: Interpretive Data No Reference Range Established Current Interpretive Data was last revised on 2017. Blood 01/09/2025 12:4 9 AM CDT 01/09/2025 12:57 AM CDT Yessenia Dominguez MD LAB BLOOD ORDERABLES Final Result HERBER [facility] [address] [facility] Department [place] [address] * (ABNORMAL) Basic metabolic panel (01/09/2025 12:49 AM CDT) Pathologist [facility] Sodium 138 135 - 145 mmol/L Potassium, pl 4.4 3.3 - 4.9 mmol/L [facility] Chloride 101 97 - 110 mmol/L [facility] CO2 22 22 - 32 mmol/L [facility] Anion gap 15 2 - 15 mmol/L [facility] BUN 55(H) 6 - 25 mg/dL [facility] Creatinine 9.20(H) 0.60 - 1.10 mg/dL [facility] Glucose 292(H) 70 - 199 mg/dL [facility] Comment: Interpretive Data Fasting glucose [...] 2022. Calcium 7.2(L) 8.5 - 10.3 mg/dL [facility] Blood 01/09/2025 12:4 9 AM CDT 01/09/2025 12:57 AM CDT Yessenia Dominguez MD LAB BLOOD ORDERABLES Final Result HERBER REINACH [address] [facility] [place] [address] * (ABNORMAL) POCT glucose (01/09/2025 12:16 AM CDT) Glucose, POC 322(H) 70 - 199 mg/dL Comment: Interpretive Data Glucose is assumed to be non-fasting. Fasting Glucose reference ranges are: 0 - 150 years: 70 mg/dL - 99 mg/dL Current interpretive data was last revised on 2013. POC Device Number [id number] HERBER MARCANO Blood 01/09/2025 12:1 6 AM CDT 01/09/2025 12:16 AM CDT Yessenia Dominguez MD LAB POCT ORDERABLES - DEVIC E Final Result Performing Organization Address [facility] Co de Phone Number [facility] [address] [facility] [place] [address] * (ABNORMAL) POCT glucose (01/08/2025 10:21 PM CDT) Glucose, POC 399(H) 70 - 199 mg/dL Comment: Interpretive Data Glucose is assumed to be non-fasting. Fasting Glucose reference ranges are: 0 - 150 years: 70 mg/dL - 99 mg/dL Current interpretive data was last revised on 2013. POC Device Number [id number] HERBER MARCANO Blood 01/08/2025 10:2 1 PM CDT 01/08/2025 10:21 PM CDT Yessenia Dominguez MD LAB POCT ORDERABLES - DEVIC E Final Result Performing Organization Address City/[facility] Co de Phone Number HERBER JIMENEZWCH [address] [facility] [place] [address] * XR Chest 1 View (01/08/2025 9:59 [...] MD LAB BLOOD ORDERABLES F inal Result [facility] [address] [facility] Department [place] [address] * Differential, auto (01/08/2025 8:57 PM CDT) [...] on 2017. Monocyte pct 10.7 % [facility] Comment: Interpretive Data Percent cell count reference ranges are not reported, since discordance with absolute values may lead to misinterpretation of CBC data. Current Interpretive Data was last revised on 2017. Eosinophil pct 3.6 % [facility] Comment: Interpretive Data Percent cell count reference ranges are not reported, since discordance with absolute values may lead to misinterpretation of CBC data. Current Interpretive Data was last revised on 2017. Basophil pct 0.2 % [facility] Comment: Interpretive Data Percent cell count reference ranges are not reported, since discordance with absolute values may lead to misinterpretation of CBC data. Current Interpretive Data was last revised on 2017. Blood 01/08/2025 8:57 PM CDT 01/08/2025 9:02 PM CDT Yareli Mitchell MD LAB BLOOD ORDERABLES F inal Result Performing Organization Address [facility]/ZIP Co de Phone Number [facility] [phone] [employer] [place] [address] * Beta-hydroxybutyrate (01/08/2025 8:57 PM CDT) Pathologist [facility] Beta-Hydroxybut yrate <0.5 0.0 - 0.5 mmol/L Blood 01/08/2025 8:57 PM CDT 01/08/2025 9:02 PM CDT Yessenia Dominguez MD LAB BLOOD ORDERABLES Final Result Performing Organization Address City/[facility]/ZIP Co de Phone Number [facility] [address] [address] [facility] [place] [address] * (ABNORMAL) CBC with auto differential (01/08/2025 8:57 PM CDT) WBC 6.16 3.80 - 9.90 K/cumm Hgb 9.2(L) 11.9 - 15.5 g/dL [facility] Hct 29.0(L) 35.6 - 45.5 % [facility] Plt 320 150 - 400 K/cumm [facility] MPV 10.6 9.1 - 12.3 fL [facility] RBC 3.25(L) 3.90 - 5.20 M/cumm [facility] MCV 89.2 81.3 - 96.4 fL [facility] MCH 28.3 27.1 - 33.3 pg [facility] MCHC 31.7(L) 32.3 - 35.7 g/dL [facility] RDW CV 14.9 11.1 - 14.9 % [facility] RDW SD 48.1 35.7 - 48.1 fL [facility] NRBC abs 0.00 0.00 - 0.01 K/cumm [facility] Blood 01/08/2025 8:57 PM CDT 01/08/2025 9:02 PM CDT Yareli Mitchell MD LAB BLOOD ORDERABLES F inal Result Performing Organization Address [facility] de Phone Number [facility] [phone] [facility] [employer] [place], [place] [phone] * Protime-INR (01/08/2025 8:57 PM CDT) PT 11.7 10.2 - 13.5 sec INR 1.04 0.90 - 1.20 [facility] Comment: Interpretive data Oral anticoagulant therapeutic ranges: Venous thromboembolism prophylaxis or treatment: 2.0-3.0 CARDIOLOGY Standard range: 2.0-3.0 High-intensity range: 2.5-3.5 Refer to indication-specific guidelines for appropriate target ranges for prosthetic heart valve replacement. Current interpretive data was last revised on 2019. Blood 01/08/2025 8:57 PM CDT 01/08/2025 9:02 PM CDT Yareli Mitchell MD LAB BLOOD ORDERABLES F inal Result Performing Organization Address [facility] Co de Phone Number [facility] [address] [employer] [employer] [place] [address] * (ABNORMAL) Renal function panel (01/08/2025 8:57 [...] CDT 01/08/2025 9:02 PM CDT us Yareli Mitchlel MD LAB BLOOD ORDERABLES F inal Result Performing Organization Address [facility] Co de Phone Number [facility] [address] [employer] [place] [address] * (ABNORMAL) POCT glucose (01/08/2025 7:44 PM CDT) Glucose, POC 320(H) 70 - 199 mg/dL Comment: Interpretive Data Glucose is assumed to be non-fasting. Fasting Glucose reference ranges are: 0 - 150 years: 70 mg/dL - 99 mg/dL Current interpretive data was last revised on 2013. POC Device Number [id number] [facility] Blood 01/08/2025 7:44 PM CDT 01/08/2025 7:44 PM CDT Yessenia Dominguez MD LAB POCT ORDERABLES - DEVIC E Final Result Performing Organization Address [facility] de Phone Number [facility] [address] [employer] [place], [place] [id number] * (ABNORMAL) POCT glucose (01/08/2025 6:43 PM CDT) Glucose, POC 320(H) 70 - 199 mg/dL Comment: Interpretive Data Glucose is assumed to be non-fasting. Fasting Glucose reference ranges are: 0 - 150 years: 70 mg/dL - 99 mg/dL Current interpretive data was last revised on 2013. POC Device Number [id number] [facility] Blood 01/08/2025 6:43 PM CDT 01/08/2025 6:43 PM CDT Viraj Olivo MD LAB POCT ORDERABLES - DEVICE Fin al Result Performing Organization Address [facility] Co de Phone Number [facility] [address] [address] [facility] [employer] [place], [place] [id number] * XR Foot Right 3 or More [...] severe secondary right ankle osteoarthritis. Small effusion. Mliy-lq-bzuhbmyo pes planus with old healed midfoot fractures, polyarticular midfoot osteoarthritis and fragmentation. Soft tissue swelling is present. Arterial atherosclerosis is noted. Mild 1st metatarsophalangeal joint osteoarthritis. IMPRESSION: 1. Old healed distal right tibia and fibular fractures with hindfoot valgus and moderate to severe secondary right ankle osteoarthritis. 2. Qjlo-pd-xmzdrumr right pes planus with old healed midfoot fractures, polyarticular midfoot osteoarthritis and fragmentation. THIS IS AN ELECTRONICALLY VERIFIED FINAL REPORT 01/09/2025 4:28 PM - Electronically signed by Andrei Nguyen M.D. T: Report ID: [id number] Reading Location: [id number] Procedure Note Andrei Nguyen MD - 01/09/2025 [...] severe secondary right ankle osteoarthritis. Small effusion. Gjaj-cz-zgaeuqvi pes planus with oldhealed midfoot fractures, polyarticular midfoot osteoarthritis and fragmentation. Soft tissue swelling is present. Arterial atherosclerosis is noted. Snhk8vx metatarsophalangeal joint osteoarthritis. IMPRESSION: 1. Old healed distal right tibia and fibular fractures with hindfootvalgus and moderate to severe secondary right ankle osteoarthritis. 2. Duqi-ej-gfaleprs right pes planus with old healed midfoot fractures, polyarticular midfoot osteoarthritis and fragmentation. THIS IS AN ELECTRONICALLY VERIFIED FINAL REPORT 01/09/2025 4:28 PM - Electronically signed by Andrei Nguyen M.D. T: Report ID: [id number] Reading Location: [id number] us Raul Clark DO IMG XR PROCEDURES [...] severe secondary right ankle osteoarthritis. Small effusion. Knbl-ev-gzezmjpb pes planus with old healed midfoot fractures, polyarticular midfoot osteoarthritis and fragmentation. Soft tissue swelling is present. Arterial atherosclerosis is noted. Mild 1st metatarsophalangeal joint osteoarthritis. IMPRESSION: 1. Old healed distal right tibia and fibular fractures with hindfoot valgus and moderate to severe secondary right ankle osteoarthritis. 2. Qtbt-yo-osthrqha right pes planus with old healed midfoot fractures, polyarticular midfoot osteoarthritis and fragmentation. THIS IS AN ELECTRONICALLY VERIFIED FINAL REPORT 01/09/2025 4:28 PM - Electronically signed by Andrei Nguyen M.D. T: Report ID: [id number] Reading Location: [id number] Procedure Note Andrei Nguyen MD - 01/09/2025 [...] severe secondary right ankle osteoarthritis. Small effusion. Firl-jb-gedmrtdw pes planus with oldhealed midfoot fractures, polyarticular midfoot osteoarthritis and fragmentation. Soft tissue swelling is present. Arterial atherosclerosis is noted. Odno0xr metatarsophalangeal joint osteoarthritis. IMPRESSION: 1. Old healed distal right tibia and fibular fractures with hindfootvalgus and moderate to severe secondary right ankle osteoarthritis. 2. Uozj-om-mypmmeaj right pes planus with old healed midfoot fractures, polyarticular midfoot osteoarthritis and fragmentation. THIS IS AN ELECTRONICALLY VERIFIED FINAL REPORT 01/09/2025 4:28 PM - Electronically signed by Andrei Nguyen M.D. T: Report ID: [id number] Reading Location: [id number] us Raul Clark DO IMG XR PROCEDURES Final Result * POCT glucose (12/26/2024 9:47 AM CDT) Glucose, POC 197 70 - 199 mg/dL Blood 12/26/2024 9:47 AM CDT 12/26/2024 9:47 AM CDT us Young Vasquez MD LAB POCT ORDERABLES - DEVICE Final Result Performing Organization Address City/State/[facility] Co de Phone Number [facility] Department [place] [address] * Colonoscopy (12/26/2024 9:16 AM CDT) Anatomical Region Laterality Modality Other Narrative Procedure Note Young Vasquez MD - 12/26/2024 9:16 AM CDT [facility] ENDOSCOPY [facility] Patient Name: Brissa Angela Procedure Date: 12/26/2024 9:16 AM Date of : 1995 Admit Type: Outpatient Age: 29 Gender: Female Attending MD: Young Vasquez M.D., Room: [facility] ENDOSCOPY ROOM 8 Note Status: Finalized Procedure: [...] The scope was passed under direct vision.The [facility] [id number] endoscope was introduced through the anus and [...] MD ENDOSCOPY PROCEDURES F inal Result * TX AN ELECTIVE ENDOTRACHEAL AIRWAY, TX AN PROCEDURE PLACEHOLDER (12/26/2024 9:02 AM CDT) Narrative Federico Beltran CRNA - 12/26/2024 9:02 AM CDT Federico Beltran CRNA 12/26/2024 9:03 AM Airway Patient location: OR Urgency: elective Indications for airway management: anesthesia Difficult airway: no Staff: Supervising provider: Dylan Frias MD Placed by: DUB ROOM ENGINEER: Federico Beltran CRNA Emergent airway documentation: Risks [...] Biopsy) 12/26/2024 9:25 AM CDT Narrative PATHOLOGY [facility] - 12/27/2024 6:13 PM CDT EPIC results best viewed via link to PDF [facility] [place] [address] Note to Patients: This report may contain [...] Gender: F : 1995 (Age: 29) Address: [address] [place], [place] [id number] Hospital #: [id number] Taken:12/26/2024 Received:12/26/2024 Reported: 12/27/2024 Patient Type: [facility] Service: Gastro Location: Physician(s): Young Vasquez M.D. [...] Surgical Pathology and Flow Cytometry Departments at [facility] as part of an ongoing manager quality program and in compliance with federally [...] Surgical Pathology and Flow Cytometry Departments of [facility]. It has not been cleared or approved by the U. S. Food and Drug Administration. IMAGES AND SCANNED DOCUMENTS, IF INCLUDED, ONLY VIEWABLE IN PDF VERSION OF REPORT Young Vasquez MD LAB PATHOLOGY ORDERABL ES Final Result PATHOLOGY [facility] 3rd Floor [place], [place] [phone] * EGD (12/26/2024 8:55 AM CDT) Anatomical Region Laterality Modality Other Narrative Procedure Note Young Vasquez MD - 12/26/2024 8:55 AM CDT [facility] ENDOSCOPY [facility] Patient Name: Brissa Angela Procedure Date: 12/26/2024 8:55 AM Date of : 1995 Admit Type: Outpatient Age: 29 Gender: Female Attending MD: Young Vasquez M.D., Room: [facility] END[facility]COPY [facility] 8 Note Status: Finalized Procedure: Upper GI endoscopy Indications: Epigastric abdominal pain Referring MD: Young Vasquez M.D. Providers: Young Vasquez M.D., Ethan lBair M.D. Medicines: Monitored Anesthesia Care Complications: No immediate complications. Estimated Blood Loss: Estimated blood loss: none. Procedure: Pre-Anesthesia Assessment: - Immediately prior to administration ofmedications, the patient was re-assessed for adequacy to receive sedatives. The benefits, risks, and alternatives to theprocedure and sedation were discussed and informed consentwas obtained. The scope was passed under direct vision. The GIF [id number] endoscope was introduced through the mouth, and [...] HCG, ur, POC Negative Negative Lot Number [id number] QC Backgroud Clear Acceptable QC Control Line Acceptable Urine 12/26/2024 8:43 AM CDT Young Vasquez MD POINT OF CARE TEST ORD ERABLES Final Result * POCT glucose (12/26/2024 8:41 AM CDT) Glucose, POC 102 70 - 199 mg/dL Blood 12/26/2024 8:41 AM CDT 12/26/2024 8:41 AM CDT Young Vsaquez MD LAB POCT ORDERABLES - DEVICE Final Result [facility] Department [place] [address] * (ABNORMAL) POCT glucose (12/26/2024 7:53 AM CDT) Glucose, POC 67(L) 70 - 199 mg/dL Blood 12/26/2024 7:53 AM CDT 12/26/2024 7:53 AM CDT Young Vasquez MD LAB POCT ORDERABLES - DEVICE Final Result Performing Organization Address [facility] Co de Phone Number [facility] Department [place] [address] * (ABNORMAL) eGFR (12/26/2024 7:03 AM CDT) Pathologist [facility] eGFR 8(L) >=60 mL/min/1. 73 m2 Comment: [...] ORDERABLES F inal Result Performing Organization Address City/[facility]/ZIP Co de Phone Number [facility] [employer] [place] [address] * (ABNORMAL) Comprehensive metabolic panel (12/26/2024 7:03 [...] Glucose 110 70 - 199 mg/dL [facility] Comment: Interpretive Data Fasting glucose >/= 126 [...] ORDERABLES F inal Result [facility] Department [place] [address] * CT Abdomen and Pelvis Enterography W [...] signed by Mahin CORDOVA T: Report ID: [id number] Reading Location: [id number] Procedure Note Mahin Balderrama MD - 12/22/2024 [...] signed by Mahin CORDOVA T: Report ID: [id number] Reading Location: [id number] Raul Clark DO IMG CT PROCEDURES Final [...] signed by Mahin CORDOVA T: Report ID: [id number] Reading Location: [id number] Procedure Note Mahin Balderrama MD - 12/22/2024 [...] signed by Mahin CORDOVA T: Report ID: [id number] Reading Location: [id number] Raul Clark DO IMG CT PROCEDURES Final [...] by Andrei Nguyen M.D. T: Report ID: [id number] Reading Location: [id number] Procedure Note Andrei Nguyen MD - 12/10/2024 [...] by Andrei Nguyen M.D. T: Report ID: [id number] Reading Location: [id number] us Raul Clark DO IMG XR PROCEDURES [...] by Andrei Nguyen M.D. T: Report ID: [id number] Reading Location: [id number] Procedure Note Andrei Nguyen MD - 12/10/2024 [...] by Andrei Nguyen M.D. T: Report ID: [id number] Reading Location: [id number] Raul Clark DO IMG XR PROCEDURES Final [...] PROCEDURES Fin al Result Performing Organization Address [facility] Co de Phone Number [email or web address] * SCAN - RADIOLOGY/IMAGING (11/16/2024) Anatomical Region Laterality Modality Other Edgardo Aldridge MD Final Result * XR Outside Reference (11/16/2024 12:00 AM CDT) Narrative [facility]IO_[facility] - 12/07/2024 1:05 PM CDT This order has been auto-finalized and does not contain a result. us Provider Transcribed Order IMG XR PROCEDURES Fin al Result Performing Organization Address [facility]/ZIP Co de Phone Number [email or web address] * CT Chest WO Contrast (11/11/2024) Anatomical Region Laterality Modality Body N/A Computed Tomogra phy Historical Provider IMG CT PROCEDURES Final R esult * (ABNORMAL) POCT glucose (11/05/2024 7:20 AM CDT) Glucose, POC 366(H) 70 - 199 mg/dL Blood 11/05/2024 7:20 AM CDT 11/05/2024 7:20 AM CDT Dutch Blake MD LAB POCT ORDERABLES - DEVICE Final Result [facility] Department [place] [address] * POCT glucose (11/05/2024 2:37 AM CDT) Glucose, POC 175 70 - 199 mg/dL Blood 11/05/2024 2:37 AM CDT 11/05/2024 2:37 AM CDT Dutch Blake MD LAB POCT ORDERABLES - DEVICE Final Result Performing Organization Address City/[facility]/ZIP Co de Phone Number [facility] Department [place] [address] * (ABNORMAL) eGFR (11/04/2024 9:18 PM CDT) [...] MD PhD LAB BLOOD ORDERABLES Final Result [facility] Department [place] [address] * Differential, auto (11/04/2024 9:18 PM CDT) Neutrophil abs 5.81 1.50 - 6.50 K/cumm Imm gran abs 0.04 0.00 - 0.10 K/cumm [facility] Lymphocyte abs 1.45 0.80 - 3.30 K/cumm [facility] Monocyte abs 0.63 0.20 - 0.80 K/cumm [facility] Eosinophil abs 0.33 0.00 - 0.50 K/cumm [facility] Basophil abs 0.02 0.00 - 0.10 K/cumm [facility] Neutrophil pct 70.2 % [facility] Comment: Interpretive Data Percent cell count reference ranges are not reported, since discordance with absolute values may lead to misinterpretation of CBC data. Current Interpretive Data was last revised on 2017. Imm gran pct 0.5 % [facility] Comment: Interpretive Data Percent cell count reference ranges are not reported, since discordance with absolute values may lead to misinterpretation of CBC data. Current Interpretive Data was last revised on 2017. Lymphocyte pct 17.5 % [facility] Comment: Interpretive Data Percent cell count reference ranges are not reported, since discordance with absolute values may lead to misinterpretation of CBC data. Current Interpretive Data was last revised on 2017. Monocyte pct 7.6 % [facility] Comment: Interpretive Data Percent cell count reference ranges are not reported, since discordance with absolute values may lead to misinterpretation of CBC data. Current Interpretive Data was last revised on 2017. Eosinophil pct 4.0 % [facility] Comment: Interpretive Data Percent cell count reference ranges are not reported, since discordance with absolute values may lead to misinterpretation of CBC data. Current Interpretive Data was last revised on 2017. Basophil pct 0.2 % [facility] Comment: Interpretive Data Percent cell count reference ranges are not reported, since discordance with absolute values may lead to misinterpretation of CBC data. Current Interpretive Data was last revised on 2017. Blood 11/04/2024 9:18 PM CDT 11/04/2024 10:29 PM CDT Luciano Hayes MD PhD LAB BLOOD ORDERABLES Final Result [facility] Department [place] [address] * (ABNORMAL) CBC with auto differential (11/04/2024 9:18 PM CDT) WBC 8.28 3.80 - 9.90 K/cumm Hgb 8.8(L) 11.9 - 15.5 g/dL [facility] Hct 27.1(L) 35.6 - 45.5 % [facility] Plt 218 150 - 400 K/cumm [facility] MPV 11.1 9.1 - 12.3 fL [facility] RBC 3.15(L) 3.90 - 5.20 M/cumm [facility] MCV 86.0 81.3 - 96.4 fL [facility] MCH 27.9 27.1 - 33.3 pg [facility] MCHC 32.5 32.3 - 35.7 g/dL [facility] RDW CV 16.2(H) 11.1 - 14.9 % [facility] RDW SD 51.3(H) 35.7 - 48.1 fL [facility] NRBC abs 0.00 0.00 - 0.01 K/cumm [facility] Blood 11/04/2024 9:18 PM CDT 11/04/2024 10:29 PM CDT Luciano Hayes MD PhD LAB BLOOD ORDERABLES Final Result Performing Organization Address City/[facility]/ZIP Co de Phone Number [facility] Department [place] [address] * (ABNORMAL) Basic metabolic panel (11/04/2024 9:18 PM CDT) Sodium 141 135 - 145 mmol/L Potassium, pl 4.2 3.3 - 4.9 mmol/L [facility] Chloride 100 97 - 110 mmol/L [facility] CO2 30 22 - 32 mmol/L [facility] Anion gap 11 2 - 15 mmol/L [facility] BUN 13 6 - 25 mg/dL [facility] Creatinine 3.27(H) 0.60 - 1.10 mg/dL [facility] Glucose 241(H) 70 - 199 mg/dL [facility] Comment: Interpretive Data Fasting glucose >/= [...] 2022. Calcium 8.2(L) 8.5 - 10.3 mg/dL [facility] Blood 11/04/2024 9:18 PM CDT 11/04/2024 10:06 PM CDT Luciano Hayes MD PhD LAB BLOOD ORDERABLES Final Result Performing Organization Address City/[facility] Co de Phone Number [facility] [place] [address] * (ABNORMAL) POCT glucose (11/04/2024 9:16 PM CDT) Glucose, POC 231(H) 70 - 199 mg/dL Blood 11/04/2024 9:16 PM CDT 11/04/2024 9:16 PM CDT Dutch Blake MD LAB POCT ORDERABLES - DEVICE Final Result Performing Organization Address [facility] [place] [address] * (ABNORMAL) POCT glucose (11/04/2024 6:50 PM CDT) Glucose, POC 380(H) 70 - 199 mg/dL Blood 11/04/2024 6:50 PM CDT 11/04/2024 6:50 PM CDT Dutch Blake MD LAB POCT ORDERABLES - DEVICE Final Result Performing Organization Address [facility] Co de Phone Number [facility] [place] [address] * POCT glucose (11/04/2024 3:55 PM CDT) Glucose, POC 184 70 - 199 mg/dL Blood 11/04/2024 3:55 PM CDT 11/04/2024 3:55 PM CDT Dutch Blake MD LAB POCT ORDERABLES - DEVICE Final Result Performing Organization Address City/[facility] Co de Phone Number [facility] [place] [address] * POCT glucose (11/04/2024 12:51 PM CDT) Glucose, POC 122 70 - 199 mg/dL Blood 11/04/2024 12:5 1 PM CDT 11/04/2024 12:51 PM CDT Dutch Blake MD LAB POCT ORDERABLES - DEVICE Final Result Performing Organization Address [facility] de Phone Number [facility] [place] [address] * POCT glucose (11/04/2024 7:16 AM CDT) Glucose, POC 107 70 - 199 mg/dL Blood 11/04/2024 7:16 AM CDT 11/04/2024 7:16 AM CDT Dutch Blake MD LAB POCT ORDERABLES - DEVICE Final Result Performing Organization Address [facility] de Phone Number [facility] [place] [address] * POCT glucose (11/04/2024 2:03 AM CDT) Glucose, POC 145 70 - 199 mg/dL Comment:Glu2: RN/MD Notified Glucose comment 1 Glu2: RN/MD Notified [facility] Blood 11/04/2024 2:03 AM CDT 11/04/2024 2:03 AM CDT Dutch Blake MD LAB POCT ORDERABLES - DEVICE Final Result Performing Organization Address [facility] de Phone Number [facility] [place] [address] * (ABNORMAL) eGFR (11/03/2024 10:59 PM CDT) Pathologist [facility] eGFR 9(L) >=60 mL/min/1. 73 m2 Comment: [...] MD PhD LAB BLOOD ORDERABLES Final Result [facility] Department [place] [address] * Differential, auto (11/03/2024 10:59 PM CDT) Neutrophil abs 3.37 1.50 - 6.50 K/cumm Imm gran abs 0.01 0.00 - 0.10 K/cumm [facility] Lymphocyte abs 2.13 0.80 - 3.30 K/cumm [facility] Monocyte abs 0.62 0.20 - 0.80 K/cumm [facility] Eosinophil abs 0.34 0.00 - 0.50 K/cumm [facility] Basophil abs 0.02 0.00 - 0.10 K/cumm [facility] Neutrophil pct 51.9 % [facility] Comment: Interpretive Data Percent cell count reference ranges are not reported, since discordance with absolute values may lead to misinterpretation of CBC data. Current Interpretive Data was last revised on 2017. Imm gran pct 0.2 % [facility] Comment: Interpretive Data Percent cell count reference ranges are not reported, since discordance with absolute values may lead to misinterpretation of CBC data. Current Interpretive Data was last revised on 2017. Lymphocyte pct 32.8 % [facility] Comment: Interpretive Data Percent cell count [...] revised on 2017. Eosinophil pct 5.2 % [facility] Comment: Interpretive Data Percent cell count reference ranges are not reported, since discordance with absolute values may lead to misinterpretation of CBC data. Current Interpretive Data was last revised on 2017. Basophil pct 0.3 % [facility] Comment: Interpretive Data Percent cell count reference ranges are not reported, since discordance with absolute values may lead to misinterpretation of CBC data. Current Interpretive Data was last revised on 2017. Blood 11/03/2024 10:5 9 PM CDT 11/04/2024 12:07 AM CDT us Luciano Hayes MD PhD LAB BLOOD ORDERABLES Final Result [facility] Department [place] [address] * (ABNORMAL) CBC with auto differential (11/03/2024 10:59 PM CDT) WBC 6.49 3.80 - 9.90 K/cumm Hgb 8.5(L) 11.9 - 15.5 g/dL [facility] Hct 27.2(L) 35.6 - 45.5 % [facility] Plt 219 150 - 400 K/cumm [facility] MPV 11.1 9.1 - 12.3 fL [facility] RBC 3.04(L) 3.90 - 5.20 M/cumm [facility] MCV 89.5 81.3 - 96.4 fL [facility] MCH 28.0 27.1 - 33.3 pg [facility] MCHC 31.3(L) 32.3 - 35.7 g/dL [facility] RDW CV 16.4(H) 11.1 - 14.9 % [facility] RDW SD 53.7(H) 35.7 - 48.1 fL [facility] NRBC abs 0.00 0.00 - 0.01 K/cumm [facility] Blood 11/03/2024 10:5 9 PM CDT 11/04/2024 12:07 AM CDT Luciano Hayes MD PhD LAB BLOOD ORDERABLES Final Result [facility] Department [place] [address] * (ABNORMAL) Basic metabolic panel (11/03/2024 10:59 PM CDT) Sodium 141 135 - 145 mmol/L Potassium, pl 4.3 3.3 - 4.9 mmol/L [facility] Chloride 103 97 - 110 mmol/L [facility] CO2 28 22 - 32 mmol/L [facility] Anion gap 10 2 - 15 mmol/L [facility] BUN 38(H) 6 - 25 mg/dL [facility] Creatinine 6.03(H) 0.60 - 1.10 mg/dL [facility] Glucose 224(H) 70 - 199 mg/dL [facility] Comment: Interpretive Data Fasting glucose >/= [...] 2022. Calcium 7.9(L) 8.5 - 10.3 mg/dL [facility] Blood 11/03/2024 10:5 9 PM CDT 11/04/2024 12:06 AM CDT us Luciano Hayes MD PhD LAB BLOOD ORDERABLES Final Result Performing Organization Address City/[facility] Co de Phone Number [facility] [place] [place] [address] * (ABNORMAL) POCT glucose (11/03/2024 8:37 PM CDT) Glucose, POC 254(H) 70 - 199 mg/dL Comment:Glu2: RN/MD Notified Glucose comment 1 Glu2: RN/MD Notified [facility] Blood 11/03/2024 8:37 PM CDT 11/03/2024 8:37 PM CDT us Dutch Blake MD LAB POCT ORDERABLES - DEVICE Final Result Performing Organization Address [facility] de Phone Number [facility] [place] [address] * (ABNORMAL) POCT glucose (11/03/2024 4:17 PM CDT) Glucose, POC 290(H) 70 - 199 mg/dL Blood 11/03/2024 4:17 PM CDT 11/03/2024 4:17 PM CDT Dutch Blake MD LAB POCT ORDERABLES - DEVICE Final Result Performing Organization Address [facility] de Phone Number [facility] [place] [place] [address] * (ABNORMAL) POCT glucose (11/03/2024 11:20 AM CDT) Glucose, POC 222(H) 70 - 199 mg/dL Comment:Glu2: RN/MD Notified Glucose comment 1 Glu2: RN/MD Notified [facility] Blood 11/03/2024 11:2 0 AM CDT 11/03/2024 11:20 AM CDT Dutch Blake MD LAB POCT ORDERABLES - DEVICE Final Result Performing Organization Address City/[facility] Co de Phone Number [facility] [place] [address] * (ABNORMAL) POCT glucose (11/03/2024 9:35 AM CDT) Glucose, POC 224(H) 70 - 199 mg/dL Blood 11/03/2024 9:35 AM CDT 11/03/2024 9:35 AM CDT Dutch Blake MD LAB POCT ORDERABLES - DEVICE Final Result Performing Organization Address [facility] de Phone Number [facility] [place] [address] * (ABNORMAL) POCT glucose (11/03/2024 8:21 AM CDT) Glucose, POC 64(L) 70 - 199 mg/dL Blood 11/03/2024 8:21 AM CDT 11/03/2024 8:21 AM CDT Dutch Blake MD LAB POCT ORDERABLES - DEVICE Final Result Performing Organization Address [facility] de Phone Number [facility] [place] [address] * POCT glucose (11/03/2024 7:21 AM CDT) Glucose, POC 125 70 - 199 mg/dL Blood 11/03/2024 7:21 AM CDT 11/03/2024 7:21 AM CDT us Dutch Blake MD LAB POCT ORDERABLES - DEVICE Final Result Performing Organization Address [facility] Co de Phone Number [facility] [place] [address] * (ABNORMAL) POCT glucose (11/03/2024 6:49 AM CDT) Glucose, POC 231(H) 70 - 199 mg/dL Blood 11/03/2024 6:49 AM CDT 11/03/2024 6:49 AM CDT us Dutch Blake MD LAB POCT ORDERABLES - DEVICE Final Result Performing Organization Address [facility] Co de Phone Number [facility] [place] [address] * (ABNORMAL) POCT glucose (11/03/2024 5:37 AM CDT) Glucose, POC 467(C) 70 - 199 mg/dL Comment: Glu2: RN/MD Notified Critical Value Noted Glucose comment 1 Glu2: RN/MD Notified [facility] Glucose comment 2 Critical Value Noted [facility] Blood 11/03/2024 5:37 AM CDT 11/03/2024 5:37 AM CDT us Dutch Blake MD LAB POCT ORDERABLES - DEVICE Final Result Performing Organization Address [facility] [place] [address] * (ABNORMAL) POCT glucose (11/03/2024 3:39 AM CDT) Glucose, POC 536(C) 70 - 199 mg/dL Comment: Glu2: Critical Value Noted RN/MD Notified Glucose comment 2 RN/MD Notified [facility] Blood 11/03/2024 3:39 AM CDT 11/03/2024 3:39 AM CDT Dutch Blake MD LAB POCT ORDERABLES - DEVICE Final Result Performing Organization Address City/[facility]/ZIP Co de Phone Number [facility] Department [place] [address] * (ABNORMAL) eGFR (11/03/2024 2:25 AM CDT) [facility] eGFR 14(L) >=60 mL/min/1. 73 m2 Comment: [...] BLOOD ORDERABLES Final Result Performing Organization Address City/[facility]/ZIP Co de Phone Number [facility] Department [place] [address] * Differential, auto (11/03/2024 2:25 AM CDT) Neutrophil abs 3.18 1.50 - 6.50 K/cumm Imm gran abs 0.02 0.00 - 0.10 K/cumm [facility] Lymphocyte abs 1.48 0.80 - 3.30 K/cumm [facility] Monocyte abs 0.57 0.20 - 0.80 K/cumm [facility] Eosinophil abs 0.21 0.00 - 0.50 K/cumm [facility] Basophil abs 0.01 0.00 - 0.10 K/cumm [facility] Neutrophil pct 58.1 % [facility] Comment: Interpretive Data Percent cell count reference ranges are not reported, since discordance with absolute values may lead to misinterpretation of CBC data. Current Interpretive Data was last revised on 2017. Imm gran pct 0.4 % [facility] Comment: Interpretive Data Percent cell count reference ranges are not reported, since discordance with absolute values may lead to misinterpretation of CBC data. Current Interpretive Data was last revised on 2017. Lymphocyte pct 27.1 % [facility] Comment: Interpretive Data Percent cell count reference ranges are not reported, since discordance with absolute values may lead to misinterpretation of CBC data. Current Interpretive Data was last revised on 2017. Monocyte pct 10.4 % [facility] Comment: Interpretive Data Percent cell count reference ranges are not reported, since discordance with absolute values may lead to misinterpretation of CBC data. Current Interpretive Data was last revised on 2017. Eosinophil pct 3.8 % [facility] Comment: Interpretive Data Percent cell count reference ranges are not reported, since discordance with absolute values may lead to misinterpretation of CBC data. Current Interpretive Data was last revised on 2017. Basophil pct 0.2 % [facility] Comment: Interpretive Data Percent cell count reference ranges are not reported, since discordance with absolute values may lead to misinterpretation of CBC data. Current Interpretive Data was last revised on 2017. Blood 11/03/2024 2:25 AM CDT 11/03/2024 4:01 AM CDT Luciano Hayes MD PhD LAB BLOOD ORDERABLES Final Result [facility] Department [place] [address] * Critical Result Callback Chemistry (11/03/2024 2:25 AM CDT) Date Notified [id number] Time Notified 435 [facility] TestName Glucose [facility] Called/Read Back Aaron Baker [facility] Credentials RN [facility] Called By laurieg [facility] Blood 11/03/2024 2:25 AM CDT 11/03/2024 4:02 AM CDT Luciano Hayes MD PhD LAB BLOOD ORDERABLES Final Result Performing Organization Address [facility] Co de Phone Number [facility] Department [place] [address] * (ABNORMAL) CBC with auto differential (11/03/2024 2:25 AM CDT) WBC 5.47 3.80 - 9.90 K/cumm Hgb 8.9(L) 11.9 - 15.5 g/dL [facility] Hct 28.5(L) 35.6 - 45.5 % [facility] Plt 233 150 - 400 K/cumm [facility] MPV 10.9 9.1 - 12.3 fL [facility] RBC 3.23(L) 3.90 - 5.20 M/cumm [facility] MCV 88.2 81.3 - 96.4 fL [facility] MCH 27.6 27.1 - 33.3 pg [facility] MCHC 31.2(L) 32.3 - 35.7 g/dL [facility] RDW CV 16.4(H) 11.1 - 14.9 % [facility] RDW SD 53.1(H) 35.7 - 48.1 fL [facility] NRBC abs 0.00 0.00 - 0.01 K/cumm [facility] Blood 11/03/2024 2:25 AM CDT 11/03/2024 4:01 AM CDT Luciano Hayes MD PhD LAB BLOOD ORDERABLES Final Result [facility] Department [place] [address] * (ABNORMAL) Basic metabolic panel (11/03/2024 2:25 AM CDT) Sodium 135 135 - 145 mmol/L Comment:Sample investigated and found to be analytically accurate. If results do not match clinical presentation, improper collection (e.g., IV fluid contamination, improper tube type, mislabel) should be considered and re-collection recommended. Potassium, pl 4.7 3.3 - 4.9 mmol/L [facility] Comment:Sample investigated and found to be analytically accurate. If results do not match clinical presentation, improper collection (e.g., IV fluid contamination, improper tube type, mislabel) should be considered and re-collection recommended. Chloride 95(L) 97 - 110 mmol/L [facility] Comment:Sample investigated and found to be analytically accurate. If results do not match clinical presentation, improper collection (e.g., IV fluid contamination, improper tube type, mislabel) should be considered and re-collection recommended. CO2 29 22 - 32 mmol/L [facility] Comment:Sample investigated and found to be [...] recommended. BUN 21 6 - 25 mg/dL [facility] Comment:Sample investigated and found to be analytically accurate. If results do not match clinical presentation, improper collection (e.g., IV fluid contamination, improper tube type, mislabel) should be considered and re-collection recommended. Creatinine 4.22(H) 0.60 - 1.10 mg/dL [facility] Comment:Sample investigated and found to be analytically accurate. If results do not match clinical presentation, improper collection (e.g., IV fluid contamination, improper tube type, mislabel) should be considered and re-collection recommended. Glucose 700(C) 70 - 199 mg/dL [facility] Comment: Sample investigated and found to [...] 2022. Calcium 7.4(L) 8.5 - 10.3 mg/dL [facility] Comment:Sample investigated and found to be analytically accurate. If results do not match clinical presentation, improper collection (e.g., IV fluid contamination, improper tube type, mislabel) should be considered and re-collection recommended. Blood 11/03/2024 2:25 AM CDT 11/03/2024 4:02 AM CDT us Luciano Hayes MD PhD LAB BLOOD ORDERABLES Final Result [facility] Department [place] [address] * (ABNORMAL) POCT glucose (11/03/2024 2:03 AM CDT) Glucose, POC >600(C) 70 - 199 mg/dL Comment:Glu2: RN/ Notified Glucose comment 1 Glu2: RN/ Notified [facility] Blood 11/03/2024 2:03 AM CDT 11/03/2024 2:03 AM CDT us Dutch Blake MD LAB POCT ORDERABLES - DEVICE Final Result Performing Organization Address [facility] Co de Phone Number [facility] [place] [address] * (ABNORMAL) POCT glucose (11/02/2024 8:42 PM CDT) Glucose, POC 204(H) 70 - 199 mg/dL Comment:Glu2: RN/MD Notified Glucose comment 1 Glu2: RN/MD Notified [facility] Blood 11/02/2024 8:42 PM CDT 11/02/2024 8:42 PM CDT us Dutch Blake MD LAB POCT ORDERABLES - DEVICE Final Result Performing Organization Address [facility] Co de Phone Number [facility] [place] [address] * (ABNORMAL) POCT glucose (11/02/2024 6:19 PM CDT) Glucose, POC 236(H) 70 - 199 mg/dL Blood 11/02/2024 6:19 PM CDT 11/02/2024 6:19 PM CDT us Dutch Blake MD LAB POCT ORDERABLES - DEVICE Final Result Performing Organization Address City/[facility] Co de Phone Number [facility] [place] [address] * (ABNORMAL) POCT glucose (11/02/2024 12:54 PM CDT) Glucose, POC 281(H) 70 - 199 mg/dL Blood 11/02/2024 12:5 4 PM CDT 11/02/2024 12:54 PM CDT Dutch Blake MD LAB POCT ORDERABLES - DEVICE Final Result Performing Organization Address [facility] de Phone Number [facility] [place] [address] * Post Dialysis BUN (11/02/2024 11:27 AM CDT) BUN Post 9 6 - 25 mg/dL Blood 11/02/2024 11:2 7 AM CDT 11/02/2024 12:06 PM CDT Francisco Middleton DO LAB BLOOD ORDERABLES Marli l Result Performing Organization Address [facility] de Phone Number [facility] Department [place] [address] * (ABNORMAL) Pre Dialysis BUN (11/02/2024 8:37 AM CDT) BUN Pre 37(H) 6 - 25 mg/dL Blood 11/02/2024 8:37 AM CDT 11/02/2024 8:49 AM CDT Francisco Middleton DO LAB BLOOD ORDERABLES Marli l Result Performing Organization Address [facility] de Phone Number [facility] [place] [address] * POCT glucose (11/02/2024 7:39 AM CDT) Glucose, POC 198 70 - 199 mg/dL Blood 11/02/2024 7:39 AM CDT 11/02/2024 7:39 AM CDT Dutch Blake MD LAB POCT ORDERABLES - DEVICE Final Result Performing Organization Address [facility] Co de Phone Number [facility] Department [place] [address] * (ABNORMAL) POCT glucose (11/02/2024 3:12 AM CDT) Glucose, POC 268(H) 70 - 199 mg/dL Blood 11/02/2024 3:12 AM CDT 11/02/2024 3:12 AM CDT us Dutch Blake MD LAB POCT ORDERABLES - DEVICE Final Result Performing Organization Address [facility] Co de Phone Number [facility] [place] [address] * (ABNORMAL) eGFR (11/01/2024 9:45 PM CDT) [facility] eGFR 9(L) >=60 mL/min/1. 73 m2 Comment: [...] PhD LAB BLOOD ORDERABLES Final Result [facility] Department [place] [address] * Differential, auto (11/01/2024 9:45 PM CDT) Neutrophil abs 2.74 1.50 - 6.50 K/cumm Imm gran abs 0.01 0.00 - 0.10 K/cumm [facility] Lymphocyte abs 1.86 0.80 - 3.30 K/cumm [facility] Monocyte abs 0.71 0.20 - 0.80 K/cumm [facility] Eosinophil abs 0.17 0.00 - 0.50 K/cumm [facility] Basophil abs 0.02 0.00 - 0.10 K/cumm [facility] Neutrophil pct 49.6 % [facility] Comment: Interpretive Data Percent cell count reference ranges are not reported, since discordance with absolute values may lead to misinterpretation of CBC data. Current Interpretive Data was last revised on 2017. Imm gran pct 0.2 % [facility] Comment: Interpretive Data Percent cell count reference ranges are not reported, since discordance with absolute values may lead to misinterpretation of CBC data. Current Interpretive Data was last revised on 2017. Lymphocyte pct 33.8 % [facility] Comment: Interpretive Data Percent cell count [...] on 2017. Basophil pct 0.4 % [facility] Comment: Interpretive Data Percent cell count reference ranges are not reported, since discordance with absolute values may lead to misinterpretation of CBC data. Current Interpretive Data was last revised on 2017. Blood 11/01/2024 9:45 PM CDT 11/01/2024 10:31 PM CDT Luciano Hayes MD PhD LAB BLOOD ORDERABLES Final Result Performing Organization Address [facility] Co de Phone Number [facility] Department [place] [address] * (ABNORMAL) CBC with auto differential (11/01/2024 9:45 PM CDT) Pathologist [facility] WBC 5.51 3.80 - 9.90 K/cumm Hgb 9.0(L) 11.9 - 15.5 g/dL [facility] Hct 28.1(L) 35.6 - 45.5 % [facility] Plt 286 150 - 400 K/cumm [facility] MPV 11.0 9.1 - 12.3 fL [facility] RBC 3.28(L) 3.90 - 5.20 M/cumm [facility] MCV 85.7 81.3 - 96.4 fL [facility] MCH 27.4 27.1 - 33.3 pg [facility] MCHC 32.0(L) 32.3 - 35.7 g/dL [facility] RDW CV 16.4(H) 11.1 - 14.9 % [facility] RDW SD 50.9(H) 35.7 - 48.1 fL [facility] NRBC abs 0.00 0.00 - 0.01 K/cumm [facility] Blood 11/01/2024 9:45 PM CDT 11/01/2024 10:31 PM CDT Luciano Hayes MD PhD LAB BLOOD ORDERABLES Final Result Performing Organization Address City/[facility]/ZIP Co de Phone Number [facility] Department [place] [address] * (ABNORMAL) Basic metabolic panel (11/01/2024 9:45 PM CDT) Sodium 142 135 - 145 mmol/L Potassium, pl 3.9 3.3 - 4.9 mmol/L [facility] Chloride 102 97 - 110 mmol/L [facility] CO2 27 22 - 32 mmol/L [facility] Anion gap 13 2 - 15 mmol/L [facility] BUN 36(H) 6 - 25 mg/dL [facility] Creatinine 6.00(H) 0.60 - 1.10 mg/dL [facility] Glucose 197 70 - 199 mg/dL [facility] Comment: Interpretive Data Fasting glucose >/= [...] 2022. Calcium 6.9(L) 8.5 - 10.3 mg/dL [facility] Blood 11/01/2024 9:45 PM CDT 11/01/2024 10:31 PM CDT us Luciano Hayes MD PhD LAB BLOOD ORDERABLES Final Result Performing Organization Address City/[facility]/ZIP Co de Phone Number [facility] Department [place] [address] * POCT glucose (11/01/2024 9:30 PM CDT) Glucose, POC 184 70 - 199 mg/dL Blood 11/01/2024 9:30 PM CDT 11/01/2024 9:30 PM CDT Dutch Blake MD LAB POCT ORDERABLES - DEVICE Final Result Performing Organization Address City/[facility]/ZIP Co de Phone Number [facility] Department [place] [address] * POCT glucose (11/01/2024 4:50 PM CDT) Glucose, POC 130 70 - 199 mg/dL Comment:Glu2: RN/ Notified Glucose comment 1 Glu2: KADY/ Notified [facility] Blood 11/01/2024 4:50 PM CDT 11/01/2024 4:50 PM CDT us Dutch Blake MD LAB POCT ORDERABLES - DEVICE Final Result Performing Organization Address [facility] Co de Phone Number [facility] [place] [address] * (ABNORMAL) POCT glucose (11/01/2024 11:49 AM CDT) Glucose, POC 201(H) 70 - 199 mg/dL Comment:Glu2: ARIANA Notified Glucose comment 1 Glu2: ARIANA Notified [facility] Blood 11/01/2024 11:4 9 AM CDT 11/01/2024 11:49 AM CDT us Dutch Blake MD LAB POCT ORDERABLES - DEVICE Final Result Performing Organization Address [facility] Co de Phone Number [facility] [place] [address] * (ABNORMAL) POCT glucose (11/01/2024 8:12 AM CDT) Glucose, POC 338(H) 70 - 199 mg/dL Comment:Glu2: ARIANA Notified Glucose comment 1 Glu2: KADY/ Notified [facility] Blood 11/01/2024 8:12 AM CDT 11/01/2024 8:12 AM CDT Dutch Blake MD LAB POCT ORDERABLES - DEVICE Final Result Performing Organization Address [facility] Co de Phone Number [facility] Department of [place] [address] * (ABNORMAL) POCT glucose (11/01/2024 1:38 AM CDT) [facility] Glucose, POC 232(H) 70 - 199 mg/dL Comment:Glu2: RN/MD Notified Glucose comment 1 Glu2: RN/MD Notified [facility] Blood 11/01/2024 1:38 AM CDT 11/01/2024 1:38 AM CDT Dutch Blake MD LAB POCT ORDERABLES - DEVICE Final Result Performing Organization Address [facility] de Phone Number [facility] Department [place] [address] * (ABNORMAL) eGFR (10/31/2024 11:30 PM CDT) [facility] eGFR 14(L) >=60 mL/min/1. 73 m2 Comment: [...] Result [facility] Department [place] [address] * (ABNORMAL) Differential, auto (10/31/2024 11:30 PM CDT) Neutrophil abs 7.04(H) 1.50 - 6.50 K/cumm Imm gran abs 0.03 0.00 - 0.10 K/cumm [facility] Lymphocyte abs 0.83 0.80 - 3.30 K/cumm [facility] Monocyte abs 0.28 0.20 - 0.80 K/cumm [facility] Eosinophil abs 0.09 0.00 - 0.50 K/cumm [facility] Basophil abs 0.02 0.00 - 0.10 K/cumm [facility] Neutrophil pct 84.9 % [facility] Comment: Interpretive Data Percent cell count reference ranges are not reported, since discordance with absolute values may lead to misinterpretation of CBC data. Current Interpretive Data was last revised on 2017. Imm gran pct 0.4 % [facility] Comment: Interpretive Data Percent cell count reference ranges are not reported, since discordance with absolute values may lead to misinterpretation of CBC data. Current Interpretive Data was last revised on 2017. Lymphocyte pct 10.0 % [facility] Comment: Interpretive Data Percent cell count [...] BLOOD ORDERABLES Final Result Performing Organization Address City/[facility]/ZIP Co de Phone Number [facility] Department [place] [place] [address] * (ABNORMAL) CBC with auto differential (10/31/2024 11:30 PM CDT) WBC 8.29 3.80 - 9.90 K/cumm Hgb 10.4(L) 11.9 - 15.5 g/dL [facility] Hct 31.4(L) 35.6 - 45.5 % [facility] Plt 304 150 - 400 K/cumm [facility] MPV 11.2 9.1 - 12.3 fL [facility] RBC 3.72(L) 3.90 - 5.20 M/cumm [facility] MCV 84.4 81.3 - 96.4 fL [facility] MCH 28.0 27.1 - 33.3 pg [facility] MCHC 33.1 32.3 - 35.7 g/dL [facility] RDW CV 16.2(H) 11.1 - 14.9 % [facility] RDW SD 50.7(H) 35.7 - 48.1 fL [facility] NRBC abs 0.00 0.00 - 0.01 K/cumm [facility] Blood 10/31/2024 11:3 0 PM CDT 10/31/2024 11:57 PM CDT Luciano Hayes MD PhD LAB BLOOD ORDERABLES Final Result Performing Organization Address City/[facility]/ZIP Co de Phone Number [facility] Department [place] [address] * (ABNORMAL) Basic metabolic panel (10/31/2024 11:30 PM CDT) Pathologist [facility] Sodium 137 135 - 145 mmol/L Potassium, pl 3.8 3.3 - 4.9 mmol/L [facility] Chloride 97 97 - 110 mmol/L [facility] CO2 25 22 - 32 mmol/L [facility] Anion gap 15 2 - 15 mmol/L [facility] BUN 20 6 - 25 mg/dL [facility] Creatinine 4.28(H) 0.60 - 1.10 mg/dL [facility] Glucose 230(H) 70 - 199 mg/dL [facility] Comment: Interpretive Data Fasting glucose >/= [...] 2022. Calcium 7.8(L) 8.5 - 10.3 mg/dL [facility] Blood 10/31/2024 11:3 0 PM CDT 10/31/2024 11:56 PM CDT us Luciano Hayes MD PhD LAB BLOOD ORDERABLES Final Result [facility] Department [place] [address] * POCT glucose (10/31/2024 8:07 PM CDT) Pathologist [facility] Glucose, POC 191 70 - 199 mg/dL Blood 10/31/2024 8:07 PM CDT 10/31/2024 8:07 PM CDT us Dutch Blake MD LAB POCT ORDERABLES - DEVICE Final Result Performing Organization Address [facility] Co de Phone Number [facility] [place] [address] * POCT glucose (10/31/2024 5:26 PM CDT) Glucose, POC 108 70 - 199 mg/dL Blood 10/31/2024 5:26 PM CDT 10/31/2024 5:26 PM CDT us Dutch Blake MD LAB POCT ORDERABLES - DEVICE Final Result Performing Organization Address [facility] Co de Phone Number [facility] [place] [address] * POCT glucose (10/31/2024 1:18 PM CDT) Glucose, POC 96 70 - 199 mg/dL Blood 10/31/2024 1:18 PM CDT 10/31/2024 1:18 PM CDT us Dutch Blake MD LAB POCT ORDERABLES - DEVICE Final Result Performing Organization Address [facility] Co de Phone Number [facility] Department [place] [address] * Hepatitis B Surface Antigen Blood (10/31/2024 9:31 AM CDT) HepBsAg Nonreactive Nonreactive Blood 10/31/2024 9:31 AM CDT 10/31/2024 9:57 AM CDT us Francisco Middleton DO LAB MICROBIOLOGY - GENERA L ORDERABLES Final Result Performing Organization Address City/[facility] Co de Phone Number [facility] [place] [address] * POCT glucose (10/31/2024 7:50 AM CDT) Glucose, POC 79 70 - 199 mg/dL Comment:Glu2: RN/MD Notified Glucose comment 1 Glu2: RN/MD Notified [facility] Blood 10/31/2024 7:50 AM CDT 10/31/2024 7:50 AM CDT Dutch Blake MD LAB POCT ORDERABLES - DEVICE Final Result [facility] Department [place] [address] * POCT glucose (10/31/2024 1:56 AM CDT) Glucose, POC 87 70 - 199 mg/dL Blood 10/31/2024 1:56 AM CDT 10/31/2024 1:56 AM CDT Dutch Blake MD LAB POCT ORDERABLES - DEVICE Final Result Performing Organization Address City/[facility] Co de Phone Number [facility] Department [place] [address] * (ABNORMAL) eGFR (10/30/2024 9:57 PM CDT) [...] MD PhD LAB BLOOD ORDERABLES Final Result [facility] Department [place] [address] * Differential, auto (10/30/2024 9:57 PM CDT) Neutrophil abs 2.96 1.50 - 6.50 K/cumm Imm gran abs 0.02 0.00 - 0.10 K/cumm [facility] Lymphocyte abs 2.18 0.80 - 3.30 K/cumm [facility] Monocyte abs 0.55 0.20 - 0.80 K/cumm [facility] Eosinophil abs 0.29 0.00 - 0.50 K/cumm [facility] Basophil abs 0.03 0.00 - 0.10 K/cumm [facility] Neutrophil pct 49.1 % [facility] Comment: Interpretive Data Percent cell count reference ranges are not reported, since discordance with absolute values may lead to misinterpretation of CBC data. Current Interpretive Data was last revised on 2017. Imm gran pct 0.3 % [facility] Comment: Interpretive Data Percent cell count reference ranges are not reported, since discordance with absolute values may lead to misinterpretation of CBC data. Current Interpretive Data was last revised on 2017. Lymphocyte pct 36.2 % [facility] Comment: Interpretive Data Percent cell count reference ranges are not reported, since discordance with absolute values may lead to misinterpretation of CBC data. Current Interpretive Data was last revised on 2017. Monocyte pct 9.1 % [facility] Comment: Interpretive Data Percent cell count reference ranges are not reported, since discordance with absolute values may lead to misinterpretation of CBC data. Current Interpretive Data was last revised on 2017. Eosinophil pct 4.8 % [facility] Comment: Interpretive Data Percent cell count reference ranges are not reported, since discordance with absolute values may lead to misinterpretation of CBC data. Current Interpretive Data was last revised on 2017. Basophil pct 0.5 % [facility] Comment: Interpretive Data Percent cell count reference ranges are not reported, since discordance with absolute values may lead to misinterpretation of CBC data. Current Interpretive Data was last revised on 2017. Blood 10/30/2024 9:57 PM CDT 10/30/2024 10:39 PM CDT Luciano Hayes MD PhD LAB BLOOD ORDERABLES Final Result Performing Organization Address City/[facility]/ZIP Co de Phone Number [facility] Department [place] [address] * Beta-hydroxybutyrate (10/30/2024 9:57 PM CDT) Pathologist [facility] Beta-Hydroxybut yrate 0.1 0.0 - 0.5 mmol/L Blood 10/30/2024 9:57 PM CDT 10/30/2024 10:28 PM CDT Luciano Hayes MD PhD LAB BLOOD ORDERABLES Edited Result - Final Performing Organization Address City/[facility]/ZIP Co de Phone Number [facility] Department [place] [address] * (ABNORMAL) CBC with auto differential (10/30/2024 9:57 PM CDT) Pathologist [facility] WBC 6.03 3.80 - 9.90 K/cumm Hgb 8.9(L) 11.9 - 15.5 g/dL [facility] Hct 27.6(L) 35.6 - 45.5 % [facility] Plt 277 150 - 400 K/cumm [facility] MPV 11.0 9.1 - 12.3 fL [facility] RBC 3.17(L) 3.90 - 5.20 M/cumm [facility] MCV 87.1 81.3 - 96.4 fL [facility] MCH 28.1 27.1 - 33.3 pg [facility] MCHC 32.2(L) 32.3 - 35.7 g/dL [facility] RDW CV 16.4(H) 11.1 - 14.9 % [facility] RDW SD 52.3(H) 35.7 - 48.1 fL [facility] NRBC abs 0.00 0.00 - 0.01 K/cumm [facility] Blood 10/30/2024 9:57 PM CDT 10/30/2024 10:39 PM CDT Luciano Hayes MD PhD LAB BLOOD ORDERABLES Final Result [facility] Department [place] [address] * (ABNORMAL) Basic metabolic panel (10/30/2024 9:57 PM CDT) Sodium 138 135 - 145 mmol/L Potassium, pl 4.2 3.3 - 4.9 mmol/L [facility] Chloride 100 97 - 110 mmol/L [facility] CO2 26 22 - 32 mmol/L [facility] Anion gap 12 2 - 15 mmol/L [facility] BUN 45(H) 6 - 25 mg/dL [facility] Creatinine 6.91(H) 0.60 - 1.10 mg/dL [facility] Glucose 252(H) 70 - 199 mg/dL [facility] Comment: Interpretive Data Fasting glucose >/= [...] 2022. Calcium 8.1(L) 8.5 - 10.3 mg/dL [facility] Blood 10/30/2024 9:57 PM CDT 10/30/2024 10:39 PM CDT us Luciano Hayes MD PhD LAB BLOOD ORDERABLES Final Result Performing Organization Address City/[facility]/ZIP Co de Phone Number [facility] Department [place] [address] * (ABNORMAL) POCT glucose (10/30/2024 8:29 PM CDT) Glucose, POC 361(H) 70 - 199 mg/dL Comment:Glu2: RN/MD Notified Glucose comment 1 Glu2: RN/MD Notified [facility] Blood 10/30/2024 8:29 PM CDT 10/30/2024 8:29 PM CDT us Dennis Cadet MD LAB POCT ORDERABLES - DEV ICE Final Result Performing Organization Address [facility] Co de Phone Number [facility] Department [place] [address] * (ABNORMAL) POCT glucose (10/30/2024 5:10 PM CDT) Glucose, POC 292(H) 70 - 199 mg/dL Blood 10/30/2024 5:10 PM CDT 10/30/2024 5:10 PM CDT Dennis Cadet MD LAB POCT ORDERABLES - DEV ICE Final Result Performing Organization Address [facility] Co de Phone Number [facility] [place] [address] * (ABNORMAL) POCT glucose (10/30/2024 1:08 PM CDT) Glucose, POC 251(H) 70 - 199 mg/dL Blood 10/30/2024 1:08 PM CDT 10/30/2024 1:08 PM CDT Luciano Hayes MD PhD LAB POCT ORDERABLES - DEVIC E Final Result Performing Organization Address City/[facility] Co de Phone Number [facility] Department [place] [place] [address] * (ABNORMAL) POCT glucose (10/30/2024 11:19 AM CDT) Glucose, POC 270(H) 70 - 199 mg/dL Blood 10/30/2024 11:1 9 AM CDT 10/30/2024 11:19 AM CDT Luciano Hayes MD PhD LAB POCT ORDERABLES - DEVIC E Final Result Performing Organization Address [facility] de Phone Number [facility] [place] [place] [address] * (ABNORMAL) eGFR (10/30/2024 9:10 AM CDT) Pathologist [facility] eGFR 10(L) >=60 mL/min/1. 73 m2 Comment: [...] ORDERABLES Fi nal Result Performing Organization Address City/[facility]/ZIP Co de Phone Number [facility] [place] [address] * (ABNORMAL) Beta-hydroxybutyrate (10/30/2024 9:10 AM CDT) Pathologist [facility] Beta-Hydroxybut yrate 0.6(H) 0.0 - 0.5 mmol/L Blood 10/30/2024 9:10 AM CDT 10/30/2024 9:23 AM CDT Dennis Cadet MD LAB BLOOD ORDERABLES Marli l Result Performing Organization Address [facility] Co de Phone Number [facility] [place] [address] * (ABNORMAL) Basic metabolic panel (10/30/2024 9:10 AM CDT) Sodium 139 135 - 145 mmol/L Potassium, pl 4.7 3.3 - 4.9 mmol/L [facility] Comment:Hemolyzed; Potassium value may be falsely elevated by as much as 0.6-1.0 mmol/L. Suggest redraw and reanalysis. Chloride 102 97 - 110 mmol/L [facility] CO2 24 22 - 32 mmol/L [facility] Anion gap 13 2 - 15 mmol/L [facility] BUN 37(H) 6 - 25 mg/dL [facility] Creatinine 5.68(H) 0.60 - 1.10 mg/dL [facility] Glucose 214(H) 70 - 199 mg/dL [facility] Comment: Interpretive Data Fasting glucose >/= [...] 2022. Calcium 7.9(L) 8.5 - 10.3 mg/dL [facility] Blood 10/30/2024 9:10 AM CDT 10/30/2024 9:27 AM CDT Crystal Schuster MD LAB BLOOD ORDERABLES Fi nal Result Performing Organization Address [facility] de Phone Number [facility] Department [place] [address] * POCT glucose (10/30/2024 8:07 AM CDT) Glucose, POC 172 70 - 199 mg/dL Blood 10/30/2024 8:07 AM CDT 10/30/2024 8:07 AM CDT Luciano Hayes MD PhD LAB POCT ORDERABLES - DEVIC E Final Result Performing Organization Address [facility] de Phone Number [facility] Department [place] [address] * POCT glucose (10/30/2024 6:31 AM CDT) Glucose, POC 173 70 - 199 mg/dL Blood 10/30/2024 6:31 AM CDT 10/30/2024 6:31 AM CDT Dennis Cadet MD LAB POCT ORDERABLES - DEV ICE Final Result Performing Organization Address [facility] de Phone Number [facility] [place] [address] * POCT glucose (10/30/2024 4:02 AM CDT) Glucose, POC 88 70 - 199 mg/dL Blood 10/30/2024 4:02 AM CDT 10/30/2024 4:02 AM CDT Dennis Cadet MD LAB POCT ORDERABLES - DEV ICE Final Result [facility] [place] [address] * POCT glucose (10/30/2024 2:30 AM CDT) Glucose, POC 95 70 - 199 mg/dL Blood 10/30/2024 2:30 AM CDT 10/30/2024 2:30 AM CDT Dennis Cadet MD LAB POCT ORDERABLES - DEV ICE Final Result Performing Organization Address City/[facility] Co de Phone Number [facility] [place] [address] * (ABNORMAL) eGFR (10/30/2024 2:24 AM CDT) [...] Schuster MD LAB BLOOD ORDERABLES nal Result [facility] Department [place] [address] * (ABNORMAL) Differential, auto (10/30/2024 2:24 AM CDT) Neutrophil abs 7.45(H) 1.50 - 6.50 K/cumm Imm gran abs 0.03 0.00 - 0.10 K/cumm [facility] Lymphocyte abs 2.30 0.80 - 3.30 K/cumm [facility] Monocyte abs 0.93(H) 0.20 - 0.80 K/cumm [facility] Eosinophil abs 0.09 0.00 - 0.50 K/cumm [facility] Basophil abs 0.03 0.00 - 0.10 K/cumm [facility] Neutrophil pct 68.8 % [facility] Comment: Interpretive Data Percent cell count reference ranges are not reported, since discordance with absolute values may lead to misinterpretation of CBC data. Current Interpretive Data was last revised on 2017. Imm gran pct 0.3 % [facility] Comment: Interpretive Data Percent cell count reference ranges are not reported, since discordance with absolute values may lead to misinterpretation of CBC data. Current Interpretive Data was last revised on 2017. Lymphocyte pct 21.2 % [facility] Comment: Interpretive Data Percent cell count reference ranges are not reported, since discordance with absolute values may lead to misinterpretation of CBC data. Current Interpretive Data was last revised on 2017. Monocyte pct 8.6 % [facility] Comment: Interpretive Data Percent cell count reference ranges are not reported, since discordance with absolute values may lead to misinterpretation of CBC data. Current Interpretive Data was last revised on 2017. Eosinophil pct 0.8 % [facility] Comment: Interpretive Data Percent cell count reference ranges are not reported, since discordance with absolute values may lead to misinterpretation of CBC data. Current Interpretive Data was last revised on 2017. Basophil pct 0.3 % [facility] Comment: Interpretive Data Percent cell count reference ranges are not reported, since discordance with absolute values may lead to misinterpretation of CBC data. Current Interpretive Data was last revised on 2017. Blood 10/30/2024 2:24 AM CDT 10/30/2024 2:44 AM CDT us Sandra Eddy MD LAB BLOOD ORDERABLES Final Resul t [facility] Department [place] [address] * (ABNORMAL) CBC with auto differential (10/30/2024 2:24 AM CDT) WBC 10.83(H) 3.80 - 9.90 K/cumm Hgb 9.3(L) 11.9 - 15.5 g/dL [facility] Hct 28.7(L) 35.6 - 45.5 % [facility] Plt 292 150 - 400 K/cumm [facility] MPV 11.0 9.1 - 12.3 fL [facility] RBC 3.34(L) 3.90 - 5.20 M/cumm [facility] MCV 85.9 81.3 - 96.4 fL [facility] MCH 27.8 27.1 - 33.3 pg [facility] MCHC 32.4 32.3 - 35.7 g/dL [facility] RDW CV 16.9(H) 11.1 - 14.9 % [facility] RDW SD 52.8(H) 35.7 - 48.1 fL [facility] NRBC abs 0.00 0.00 - 0.01 K/cumm [facility] Blood 10/30/2024 2:24 AM CDT 10/30/2024 2:44 AM CDT Sandra Eddy MD LAB BLOOD ORDERABLES Final Resul t Performing Organization Address [facility] [place] [address] * (ABNORMAL) Hemoglobin A1c (10/30/2024 2:24 AM CDT) Hgb A1C 8.8(H) 4.0 - 5.6 % Estimated Average Glucose 206 mg/dL [facility] Comment: The ADA recommends reporting an [...] ORDERABLES Marli l Result Performing Organization Address [facility] [place] [address] * Blood gas, venous (10/30/2024 2:24 AM CDT) pH, Venous 7.34 7.32 - 7.43 PCO2, Venous 50 40 - 50 mmHg [facility] PO2, Venous 41 mmHg [facility] Comment: Interpretive Data No Reference Range Established Current Interpretive Data was last revised on 2017. HCO3 Venous, Calculated 28 20 - 30 mmol/L [facility] BE, venous 1 mmol/L [facility] Comment: Interpretive Data No Reference Range Established Current Interpretive Data was last revised on 2017. Blood 10/30/2024 2:24 AM CDT 10/30/2024 2:31 AM CDT Crystal Schuster MD LAB BLOOD ORDERABLES Fi nal Result Performing Organization Address [facility]/ZIP Co de Phone Number [facility] Department [place] [address] * (ABNORMAL) Basic metabolic panel (10/30/2024 2:24 AM CDT) [facility] Sodium 143 135 - 145 mmol/L Potassium, pl 3.6 3.3 - 4.9 mmol/L [facility] Chloride 106 97 - 110 mmol/L [facility] CO2 28 22 - 32 mmol/L [facility] Anion gap 9 2 - 15 mmol/L [facility] BUN 35(H) 6 - 25 mg/dL [facility] Creatinine 5.56(H) 0.60 - 1.10 mg/dL [facility] Glucose 112 70 - 199 mg/dL [facility] Comment: Interpretive Data Fasting glucose >/= [...] 2022. Calcium 7.8(L) 8.5 - 10.3 mg/dL [facility] Blood 10/30/2024 2:24 AM CDT 10/30/2024 2:43 AM CDT Crystal Schuster MD LAB BLOOD ORDERABLES Fi nal Result Performing Organization Address [facility]/ZIP Co de Phone Number [facility] Department [place] [address] * POCT glucose (10/30/2024 12:01 AM CDT) Glucose, POC 181 70 - 199 mg/dL Blood 10/30/2024 12:0 1 AM CDT 10/30/2024 12:01 AM CDT Dennis Cadet MD LAB POCT ORDERABLES - DEV ICE Final Result Performing Organization Address City/[facility] Co de Phone Number [facility] [place] [place] [address] * (ABNORMAL) POCT glucose (10/29/2024 10:01 PM CDT) Glucose, POC 297(H) 70 - 199 mg/dL Blood 10/29/2024 10:0 1 PM CDT 10/29/2024 10:01 PM CDT Dennis Cadet MD LAB POCT ORDERABLES - DEV ICE Final Result Performing Organization Address [facility] de Phone Number [facility] [place] [place] [address] * (ABNORMAL) POCT glucose (10/29/2024 8:26 PM CDT) Glucose, POC 290(H) 70 - 199 mg/dL Blood 10/29/2024 8:26 PM CDT 10/29/2024 8:26 PM CDT Dennis Cadet MD LAB POCT ORDERABLES - DEV ICE Final Result Performing Organization Address City/[facility] de Phone Number HERBER [facility] [place] [place] [address] * (ABNORMAL) eGFR (10/29/2024 8:13 PM CDT) [...] MD LAB BLOOD ORDERABLES Final R esult [facility] Department [place] [address] * Lipid panel (10/29/2024 8:13 PM CDT) [...] on 2017. Triglycerides 92 <=149 mg/dL HERBER JMIENEZ Comment: Interpretive Data Ages < or = [...] revised on 2017. HDL 49 >=40 mg/dL [facility] Comment: Interpretive Data Ages < or [...] on 2017. LDL, calculated 58 <=129 mg/dL [facility] Comment: Interpretive Data Ages < or [...] last revised on 2017. Chol/HDL ratio 3 [facility] Blood 10/29/2024 8:13 PM CDT 10/29/2024 8:27 PM CDT us Dennis Cadet MD LAB BLOOD ORDERABLES Marli lipscomb Result [facility] Department [place] [address] * (ABNORMAL) Basic metabolic panel (10/29/2024 8:13 PM CDT) Pathologist [facility] Sodium 143 135 - 145 mmol/L Potassium, pl 4.1 3.3 - 4.9 mmol/L [facility] Chloride 102 97 - 110 mmol/L [facility] CO2 23 22 - 32 mmol/L [facility] Anion gap 18(H) 2 - 15 mmol/L [facility] BUN 31(H) 6 - 25 mg/dL [facility] Creatinine 5.00(H) 0.60 - 1.10 mg/dL [facility] Glucose 266(H) 70 - 199 mg/dL [facility] Comment: Interpretive Data Fasting glucose >/= [...] 2022. Calcium 7.7(L) 8.5 - 10.3 mg/dL [facility] Blood 10/29/2024 8:13 PM CDT 10/29/2024 8:27 PM CDT us Ari Us MD LAB BLOOD ORDERABLES Final R esult Performing Organization Address City/[facility]/ZIP Co de Phone Number [facility] [place] [address] * (ABNORMAL) POCT glucose (10/29/2024 4:00 PM CDT) Glucose, POC 290(H) 70 - 199 mg/dL Comment:Glu2: RN/MD Notified Glucose comment 1 Glu2: RN/MD Notified [facility] Blood 10/29/2024 4:00 PM CDT 10/29/2024 4:00 PM CDT us Ciaran Medina MD LAB POCT ORDERABLES - DEVICE Final Result Performing Organization Address [facility]/ZIP Co de Phone Number [facility] [place] [place] [address] * (ABNORMAL) POCT glucose (10/29/2024 12:58 PM CDT) Glucose, POC 299(H) 70 - 199 mg/dL Blood 10/29/2024 12:5 8 PM CDT 10/29/2024 12:58 PM CDT us Nathan Moore MD LAB POCT ORDERABLES - DE VICE Final Result Performing Organization Address City/[facility]/ZIP Co de Phone Number [facility] [place] [place] [address] * (ABNORMAL) POCT glucose (10/29/2024 11:55 AM CDT) Glucose, POC 309(H) 70 - 199 mg/dL Comment:Glu2: RN/MD Notified Glucose comment 1 Glu2: RN/ Notified [facility]BER KENNEDY Blood 10/29/2024 11:5 5 AM CDT 10/29/2024 11:55 AM CDT us Nathan Moore MD LAB POCT ORDERABLES - DE VICE Final Result HERBER [facility] Department [place] [address] * XR Chest PA Lateral 2 Views [...] * POCT lactate (10/29/2024 11:14 AM CDT) [facility] Lactate POC i-STAT 1.6 0.7 - 2.0 mmol/L Blood 10/29/2024 11:1 4 AM CDT 10/29/2024 11:14 AM CDT us Nathan Moore MD LAB POCT ORDERABLES - DE VICE Final Result Performing Organization Address [facility] Co de Phone Number [facility] Department [place] [address] * Potassium, whole blood (10/29/2024 11:03 AM CDT) [facility] Potassium, bld 4.2 3.3 - 4.9 mmol/L Blood 10/29/2024 11:0 3 AM CDT 10/29/2024 11:15 AM CDT Ari Us MD LAB BLOOD ORDERABLES Final R esult Performing Organization Address [facility]/ZIP Co de Phone Number [facility] [place] [address] * (ABNORMAL) eGFR (10/29/2024 11:03 AM CDT) [facility] eGFR 12(L) >=60 mL/min/1. 73 m2 Comment: [...] MD LAB BLOOD ORDERABLES Final R esult [facility] Department [place] [address] * (ABNORMAL) Differential, auto (10/29/2024 11:03 AM CDT) Neutrophil abs 8.42(H) 1.50 - 6.50 K/cumm Imm gran abs 0.04 0.00 - 0.10 K/cumm [facility] Lymphocyte abs 1.17 0.80 - 3.30 K/cumm [facility] Monocyte abs 0.52 0.20 - 0.80 K/cumm [facility] Eosinophil abs 0.17 0.00 - 0.50 K/cumm [facility] Basophil abs 0.04 0.00 - 0.10 K/cumm [facility] Neutrophil pct 81.3 % [facility] Comment: Interpretive Data Percent cell count reference ranges are not reported, since discordance with absolute values may lead to misinterpretation of CBC data. Current Interpretive Data was last revised on 2017. Imm gran pct 0.4 % [facility] Comment: Interpretive Data Percent cell count reference ranges are not reported, since discordance with absolute values may lead to misinterpretation of CBC data. Current Interpretive Data was last revised on 2017. Lymphocyte pct 11.3 % [facility] Comment: Interpretive Data Percent cell count reference ranges are not reported, since discordance with absolute values may lead to misinterpretation of CBC data. Current Interpretive Data was last revised on 2017. Monocyte pct 5.0 % [facility] Comment: Interpretive Data Percent cell count reference ranges are not reported, since discordance with absolute values may lead to misinterpretation of CBC data. Current Interpretive Data was last revised on 2017. Eosinophil pct 1.6 % [facility] Comment: Interpretive Data Percent cell count reference ranges are not reported, since discordance with absolute values may lead to misinterpretation of CBC data. Current Interpretive Data was last revised on 2017. Basophil pct 0.4 % [facility] Comment: Interpretive Data Percent cell count reference ranges are not reported, since discordance with absolute values may lead to misinterpretation of CBC data. Current Interpretive Data was last revised on 2017. Blood 10/29/2024 11:0 3 AM CDT 10/29/2024 11:21 AM CDT us Nathan Moore MD LAB BLOOD ORDERABLES Fin al Result [facility] Department [place] [address] * (ABNORMAL) CBC with auto differential (10/29/2024 11:03 AM CDT) WBC 10.36(H) 3.80 - 9.90 K/cumm Hgb 11.5(L) 11.9 - 15.5 g/dL [facility] Hct 35.0(L) 35.6 - 45.5 % [facility] Plt 345 150 - 400 K/cumm [facility] MPV 11.2 9.1 - 12.3 fL [facility] RBC 4.14 3.90 - 5.20 M/cumm [facility] MCV 84.5 81.3 - 96.4 fL [facility] MCH 27.8 27.1 - 33.3 pg [facility] MCHC 32.9 32.3 - 35.7 g/dL [facility] RDW CV 16.6(H) 11.1 - 14.9 % [facility] RDW SD 50.8(H) 35.7 - 48.1 fL [facility] NRBC abs 0.00 0.00 - 0.01 K/cumm [facility] Blood 10/29/2024 11:0 3 AM CDT 10/29/2024 11:21 AM CDT Nathan Moore MD LAB BLOOD ORDERABLES Fin al Result Performing Organization Address City/[facility] Co de Phone Number [facility] [place] [address] * Lipase (10/29/2024 11:03 AM CDT) Pathologist [facility] Lipase 49 10 - 99 Units/L Blood 10/29/2024 11:0 3 AM CDT 10/29/2024 11:21 AM CDT Result [facility] Ari Us MD LAB BLOOD ORDERABLES Final R esult Performing Organization Address [facility] de Phone Number [facility] Department [place] [address] * (ABNORMAL) Hemoglobin A1c (10/29/2024 11:03 AM CDT) Hgb A1C 9.1(H) 4.0 - 5.6 % Estimated Average Glucose 214 mg/dL [facility] Comment: The ADA recommends reporting an [...] ORDERABLES Marli l Result Performing Organization Address [facility] Co de Phone Number [facility] [place] [address] * Blood gas, venous (10/29/2024 11:03 AM CDT) pH, Venous 7.35 7.32 - 7.43 PCO2, Venous 50 40 - 50 mmHg [facility] PO2, Venous 41 mmHg [facility] Comment: Interpretive Data No Reference Range Established Current Interpretive Data was last revised on 2017. HCO3 Venous, Calculated 28 20 - 30 mmol/L [facility] BE, venous 1 mmol/L [facility] Comment: Interpretive Data No Reference Range Established Current Interpretive Data was last revised on 2017. Blood 10/29/2024 11:0 3 AM CDT 10/29/2024 11:15 AM CDT us Ari Us MD LAB BLOOD ORDERABLES Final R esult Performing Organization Address [facility] Co de Phone Number [facility] [place] [address] * (ABNORMAL) Hepatic function panel (10/29/2024 11:03 AM CDT) Bilirubin, total 0.4 0.1 - 1.2 mg/dL Bilirubin, direct <0.2 0.1 - 0.3 mg/dL [facility] Protein, pl 8.5 6.5 - 8.5 g/dL [facility] Albumin 4.4 3.5 - 5.0 g/dL [facility] Alk phos 336(H) 40 - 130 Units/L [facility] ALT 42 7 - 45 Units/L [facility] AST 39 10 - 45 Units/L [facility] Blood 10/29/2024 11:0 3 AM CDT 10/29/2024 11:21 AM CDT Ari Us MD LAB BLOOD ORDERABLES Final R esult [facility] Department [place] [address] * (ABNORMAL) Basic metabolic panel (10/29/2024 11:03 AM CDT) Pathologist [facility] Sodium 138 135 - 145 mmol/L Potassium, pl 4.0 3.3 - 4.9 mmol/L [facility] Chloride 94(L) 97 - 110 mmol/L [facility] CO2 26 22 - 32 mmol/L [facility] Anion gap 18(H) 2 - 15 mmol/L [facility] BUN 28(H) 6 - 25 mg/dL [facility] Creatinine 4.75(H) 0.60 - 1.10 mg/dL [facility] Glucose 358(H) 70 - 199 mg/dL [facility] Comment: Interpretive Data Fasting glucose >/= [...] 2022. Calcium 8.5 8.5 - 10.3 mg/dL [facility] Blood 10/29/2024 11:0 3 AM CDT 10/29/2024 11:21 AM CDT us Ari Us MD LAB BLOOD ORDERABLES Final R esult HER[facility] Department [place] [address] * (ABNORMAL) POCT ketone, blood (10/29/2024 10:22 AM CDT) Pathologist [facility] Beta-Hydroxybut yrate, POC 1.2(H) 0.0 - 0.5 mmol/L Blood 10/29/2024 10:2 2 AM CDT 10/29/2024 10:22 AM CDT Nathan Moore MD LAB POCT ORDERABLES - DE VICE Final Result Performing Organization Address [facility] Co de Phone Number [facility] [place] [address] * (ABNORMAL) POCT glucose (10/29/2024 10:21 AM CDT) Pathologist [facility] Glucose, POC 274(H) 70 - 199 mg/dL Blood 10/29/2024 10:2 1 AM CDT 10/29/2024 10:21 AM CDT Nathan Moore MD LAB POCT ORDERABLES - DE VICE Final Result Performing Organization Address [facility] Co de Phone Number [facility] [place] [place] [address] * TSH (01/09/2024 3:52 PM CDT) Pathologist [facility] Thyroid Stimulating Hormone 2.46 0.30 - 4.20 mcIUnit/mL Blood 01/09/2024 3:52 PM CDT 01/09/2024 4:46 PM CDT Sailaja Ramos MD LAB BLOOD ORDERABLES Final Result Performing Organization Address [facility] Co de Phone Number [facility] [place] [place] [address] * Hepatitis panel, acute Blood (12/24/2023 7:26 AM CDT) Pathologist [facility] Hep A IgM Nonreactive Nonreactive Comment: Interpretive [...] GENERAL OR DERABLES Final Result HERBER GUILLAUME [address] [facility] Department of Laboratories [place], [place] [id number] from Last 3 Months or Most Recently Relevant to Health Maintenance
--- NOTE | 2025-01-29 17:13 | ED.GENADULT ---
HPI - General Adult General Chief complaint: Chest Pain Stated complaint: cp, high BS Time Seen by Provider: 01/29/25 15:02 History of Present Illness HPI narrative: Patient is a 29-year-old female who presents ER with nausea and vomiting. Has history of gastroparesis and type 1 diabetes. The patient underwent JG tube placement at [facility] and was discharged 10 days ago. She has been vomiting for last 2 days and has not been giving herself tube feeds. She has mild discomfort in her central chest. No history of MD. No fevers chills or sweats. She is passing gas. No pain at the stoma site. Patient last had dialysis 2 days ago. She is due for tomorrow. Related Data Home Medications ?Medication ?Instructions ?Recorded ?Confirmed ?Last Taken ?Type insulin glargine 100 unit/mL (3 15 unit subcut HS 06/02/22 01/01/25 12/31/24 History mL) subcutaneous pen (Lantus Solostar U-100 Insulin) insulin lispro 100 unit/mL 1 sliding scale dose subcut PRN 06/02/22 01/01/25 01/01/25 History subcutaneous pen losartan 25 mg tablet 25 mg PO DAILY 06/02/22 01/01/25 12/31/24 History ondansetron 4 mg disintegrating 4 mg PO Q4H PRN Nausea And Vomiting 06/02/22 01/01/25 Unknown History tablet amlodipine 10 mg tablet 10 mg PO DAILY 01/01/25 01/01/25 Unknown History carvedilol 12.5 mg tablet 12.5 mg PO Q12H 01/01/25 01/01/25 12/31/24 History diphenhydramine HCl 25 mg capsule 25 mg PO Q8H PRN nausea and 01/01/25 01/01/25 Unknown History (Banophen) vomiting escitalopram oxalate 10 mg tablet 10 mg PO DAILY 01/01/25 01/01/25 12/31/24 History gabapentin 100 mg capsule 100 mg PO TID 01/01/25 01/01/25 01/01/25 History glucagon 0.5 mg/0.1 mL 0.5 mg subcut PRN PRN hypoglycemia 01/01/25 01/01/25 Unknown History subcutaneous auto-injector (Gvoke HypoPen 2-Pack) metoprolol succinate 200 mg 200 mg PO DAILY 01/01/25 01/01/25 Unknown History tablet,extended release 24 hr Allergies Allergy/AdvReac Type Severity Reaction Status Date / Time metoclopramide (From Reglan) Allergy Intermediate Muscle Verified 01/29/25 14:35 Spasms hydralazine Allergy Hives Verified 01/29/25 14:35 Review of Systems Review of Systems: All systems reviewed & are unremarkable except as noted in HPI and below Constitutional: Constitutional: Reports no additional constitutional complaints Cardiovascular: Cardiovascular: Reports no additional cardiovascular complaints Respiratory: Respiratory: Reports no additional respiratory complaints Gastrointestinal: Gastrointestinal: Reports no additional gastrointestinal complaints Genitourinary: Genitourinary: Reports no additional female genitourinary complaints [facility] Past Medical History Medical History Diabetic gastroparesis Port-A-Cath in place Type 1 diabetes Depression Surgical History Surgical History History of cholecystectomy Family History Family History Other Family history of cardiovascular disease Social History Social History Smoking status: Never smoker Alcohol intake: never Substance use: never Lack of Transportation: No Lack of Food: Never True Current Housing: I Have Housing Concerned About Future Housing: No Difficulty Paying Gas/Electric Bills: No Difficulty Paying for Meds: No Currently Unemployed: YES Education: High School Diploma/GED Difficulty w/ Childcare or Family Care: No Gender identity (if verbalized by the patient): Female Spiritual care concerns: No Exam Narrative: GENERAL: Chronically ill-appearing, well-nourished, and in no acute distress. HEAD: Normocephalic, atraumatic. ENT: Mucous membranes moist. NECK: Supple. CHEST: Clear to auscultation. No respiratory distress. Right chest dialysis catheter. HEART: Regular rate and rhythm. Normal peripheral pulses. ABDOMEN: Soft, nontender, nondistendeds. Feeding tube stoma site appears normal without infection or drainage. EXTREMITIES: Normal range of motion. No edema. SKIN: Warm, dry, no rash. NEURO: Alert and oriented x3. PSYCH: Normal mood and affect. Course Course Emergency Course: Nausea improving with Haldol and Benadryl. 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 Patient will go to the ICU on insulin drip and will also get dialysis tomorrow. Vital Signs Vital signs: Vital Signs Temperature 98.1 F 01/29/25 14:30 Pulse Rate 102 H 01/29/25 14:30 Respiratory Rate 20 01/29/25 14:30 Blood Pressure 187/86 H 01/29/25 14:30 Pulse Oximetry 95 01/29/25 14:30 Oxygen Delivery Room Air 01/29/25 14:30 Temperature 98.1 F 01/29/25 14:30 Pulse Rate 98 01/29/25 21:36 Respiratory Rate 15 01/29/25 21:36 Blood Pressure 157/70 H 01/29/25 21:36 Pulse Oximetry 95 01/29/25 21:36 Oxygen Delivery Room Air 01/29/25 15:09 Medical Decision Making Vital Signs Vital Signs: Vital Signs Temperature 98.1 F 01/29/25 14:30 Pulse Rate 102 H 01/29/25 14:30 Respiratory Rate 20 01/29/25 14:30 Blood Pressure 187/86 H 01/29/25 14:30 Pulse Oximetry 95 01/29/25 14:30 Oxygen Delivery Room Air 01/29/25 14:30 Temperature 98.1 F 01/29/25 14:30 Pulse Rate 98 01/29/25 21:36 Respiratory Rate 15 01/29/25 21:36 Blood Pressure 157/70 H 01/29/25 21:36 Pulse Oximetry 95 01/29/25 21:36 Oxygen Delivery Room Air 01/29/25 15:09 Lab Data 01/29/25 16:06 01/29/25 16:06 Labs: Lab Results 01/29/25 01/29/25 01/29/25 Range/Units 14:17 16:06 17:39 WBC 13.7 H (4.5-10.0) K/mm3 RBC 3.13 L (4.2-5.4) M/mm3 Hgb 8.9 L (12.0-15.0) g/dL Hct 28.1 L (37.0-47.0) % MCV 89.8 (80-100) fl MCH 28.4 (26-34) pg MCHC 31.7 L (32-36) g/dl RDW 15.4 H (11.5-14.5) % Plt Count 278 (150-375) k/mm3 MPV 10.8 H (7.4-10.4) fl Immature Gran % (Auto) 0.4 (0-0.5) % Neut % (Auto) 86.1 H (45.5-73.1) % Lymph % (Auto) 7.1 L (18.3-44.2) % [place] % (Auto) 4.7 (2.6-8.5) % Eos % (Auto) 1.5 (0-4.4) % Baso % (Auto) 0.2 (0.2-1.2) % Lymph # (Auto) 0.97 (0.9-3.2) K/mm3 [place] # (Auto) 0.6 (0.1-0.6) K/mm3 Eos # (Auto) 0.2 (0-0.3) K/mm3 Baso # (Auto) 0.0 (0.0-0.1) K/mm3 Abs Immat Gran (auto) 0.06 H (0.00-0.031) K/mm3 Absolute Neuts (auto) 11.8 H (1.3-6.7) K/mm3 Absolute Nucleated RBC 0.000 (0.0-0.012) K/mm3 Nucleated RBC % 0.0 (0.0-0.2) % PT 15.6 H (11.1-14.7) Seconds INR 1.3 APTT 27.6 (22.3-36.8) Seconds Methemoglobin 0.2 (0-1.5) %THb Sodium 133 L (137-145) mmol/L Potassium 5.9 H (3.4-5.0) mmol/L Chloride 90 L (98-107) mmol/L Carbon Dioxide 14 L (22-30) mmol/L Anion Gap 29 H (4-12) mmol/L BUN 78 H D (7-17) mg/dL Creatinine 10.23 H (0.7-1.0) mg/dL Estim Creat Clear Calc 7 ml/min Estimated GFR 4 L (59 - ) Glucose 497 H (65-110) mg/dL POC Capillary Glucose 394 H (65-105) mg/dl Calcium 9.1 (8.4-10.2) mg/dL Total Bilirubin 0.8 (0.2-1.3) mg/dL AST 27 (14-36) U/L ALT 48 H (6-35) U/L Alkaline Phosphatase 375 H (38-126) U/L Troponin I < 0.012 (0.000-0.034) ng/mL Total Protein 7.9 (6.3-8.2) g/dL Albumin 4.5 (3.5-5.1) g/dL 01/29/25 01/29/25 01/29/25 Range/Units 18:24 19:33 20:39 WBC (4.5-10.0) K/mm3 RBC (4.2-5.4) M/mm3 Hgb (12.0-15.0) g/dL Hct (37.0-47.0) % MCV (80-100) fl MCH (26-34) pg MCHC (32-36) g/dl RDW (11.5-14.5) % Plt Count (150-375) k/mm3 MPV (7.4-10.4) fl Immature Gran % (Auto) (0-0.5) % Neut % (Auto) (45.5-73.1) % Lymph % (Auto) (18.3-44.2) % [place] % (Auto) (2.6-8.5) % Eos % (Auto) (0-4.4) % Baso % (Auto) (0.2-1.2) % Lymph # (Auto) (0.9-3.2) K/mm3 [place] # (Auto) (0.1-0.6) K/mm3 Eos # (Auto) (0-0.3) K/mm3 Baso # (Auto) (0.0-0.1) K/mm3 Abs Immat Gran (auto) (0.00-0.031) K/mm3 Absolute Neuts (auto) (1.3-6.7) K/mm3 Absolute Nucleated RBC (0.0-0.012) K/mm3 Nucleated RBC % (0.0-0.2) % PT (11.1-14.7) Seconds INR APTT (22.3-36.8) Seconds Methemoglobin (0-1.5) %THb Sodium (137-145) mmol/L Potassium (3.4-5.0) mmol/L Chloride (98-107) mmol/L Carbon Dioxide (22-30) mmol/L Anion Gap (4-12) mmol/L BUN (7-17) mg/dL Creatinine (0.7-1.0) mg/dL Estim Creat Clear Calc ml/min Estimated GFR (59 - ) Glucose (65-110) mg/dL POC Capillary Glucose 489 H > 500 H* (65-105) mg/dl Calcium (8.4-10.2) mg/dL Total Bilirubin (0.2-1.3) mg/dL AST (14-36) U/L ALT (6-35) U/L Alkaline Phosphatase (38-126) U/L Troponin I < 0.012 (0.000-0.034) ng/mL Total Protein (6.3-8.2) g/dL Albumin (3.5-5.1) g/dL ABG Data ABG results: 01/29/25 17:39 Puncture Site Left radial ABG pH 7.324 L ABG pCO2 26.3 L ABG pO2 76.8 L ABG PO2/FiO2 Ratio 3.66 ABG HCO3 13.4 L ABG O2 Saturation 94.7 L ABG O2 Content 13.3 L ABG Base Excess -11.3 A-a Gradient 41.4 Oxyhemoglobin 92.7 Carboxyhemoglobin 0.6 Reduced Hemoglobin 6.5 H Total Hemoglobin 10.1 L O2 Delivery Device Room air O2 Liters/Min 0.0 FiO2 21 Imaging Data Radiologist's impression: ITS Impressions Chest X-Ray 01/29/25 15:40 Impression: No acute cardiopulmonary abnormality. Discharge Plan Discharge Clinical Impression: DKA, type 1 Patient Disposition: Still a Patient Condition: Stable
[2025-01-29 17:40] LABS: Alveolar/Arterial O2 Gradient 41.4 mmHg; Carboxyhemoglobin 0.6 % THb (0-2.0); Fractional Inspired Oxygen 21 %; HCO3 ABG 13.4 mEq/l (22.0-26.0); Methemoglobin ABG 0.2 %THb (0-1.5); Oxygen Content ABG 13.3 %vol (16.0-22.0); Oxygen Saturation ABG 94.7 % (95.0-100.0); PCO2 ABG 26.3 mmHg (35.0-45.0); PO2 ABG 76.8 mmHg (80.0-100.0); PO2 FiO2 Ratio Arterial Blood 3.66 %; Reduced Hemoglobin 6.5 %THb (0-5.0)
[2025-01-29] MEDS: HALOPERIDOL LACTATE 5 MG/ML VIAL IV PUSH ×2 (17:43→22:31)
[2025-01-29 17:58] LABS: Modified Allen's Test Pass; Site Drawn LEFT RADIAL
[2025-01-29 17:59] LABS: Liters per Minute 0.0 LPM
--- NOTE | 2025-01-29 18:28 | ECG_ITS ---
Test Date: 2025-01-29 18:41:41 Measurements Intervals [place] Rate: 109 P: 0 [place]: 0 QRS: 22 QRSD: 104 T: 43 QT: 371 QTc: 501 Interpretive Statements SINUS TACHYCARDIA INCOMPLETE RIGHT BUNDLE BRANCH BLOCK PEAKED T WAVES- CONSIDER HYPERKALEMIA PROLONGED QT INTERVAL BASELINE ARTIFACT- I, II, III, AVL, V1-V3 ABNORMAL ECG Compared to ECG 01/29/2025 14:34:09 HEART RATE HAS INCREASED Electronically Signed On 01-29-2025 19:01:55 CDT by Davy Torres D.O.
[2025-01-29 18:51] LABS: Troponin I < 0.012 ng/mL (0.000-0.034)
[2025-01-29] MEDS: INSULIN HUMAN REGULAR (*BKC) 100 UNITS in SODIUM CHLORIDE 0.9% IV 99 ML 6.5 UNITS IV CONT (19:35)
[2025-01-29 22:25] LABS: MRSA (PCR) NOT DETECTED (NOT DETECTE)
[2025-01-29] MEDS: SODIUM BICARBONATE 8.4% 50 MEQ/50 ML SYRINGE IV PUSH (22:35)
--- NOTE | 2025-01-29 22:49 | ADMGEN ---
This patient, Lynette Bellamy, was admitted to Intensive Care Unit-9. Patient/family oriented to hospital policies and general routines including ID bracelet, bed and alarms, visiting hours, pain management, procedures, bathroom and other care routines, personal items, smoking policy, room service/diet, and visiting hours. Information on how to activate the Rapid Response Team has been discussed. Patient/Family are encouraged to report perceived risks to care and to ask questions if they do not understand what they are told or what they should do. Received report from KADY Ballard at [phone], patient arrived via stretcher at 2200 without issue.
[2025-01-29] MEDS: CALCIUM GLUCONATE 1,000 MG/10 ML VIAL 1000 MG IV PUSH (23:16)
--- NOTE | 2025-01-29 23:45 | P.HP_ITS ---
H&P: HPI History of Present Illness Date/Time: 01/29/25 23:45 Chief Complaint: Nausea vomiting for 3 days, left-sided chest pain for a couple of hours, ?I think I am in DKA again? Narrative: 29-year-old female with a past medical history of end-stage renal disease due to type 1 diabetes mellitus with complications including diabetic peripheral neuropathy and gastroparesis status post recent G-tube placement for decompression in J-tube placement for enteral feeds who presented to the ER with 3 days of nausea vomiting and couple of hours of left-sided chest pain. Patient reports that she has not been able to tolerate any tube feeds for the last 3 days. She has continued to give herself her home insulin but her glucoses have continued to climb. She reports that she did not have the appropriate supplies for her G-tube in was unable to aspirate air from her G button for the last 3 days. She has kept her drain bag in place in she did have a proximally 250 mL of drainage. She denied having any fevers or chills. She has been having more dry heaves. She reports that she has been taking her Lantus as directed and has been monitoring her glucoses with her CGM. She has been trying to take p.r.n. doses of insulin but her glucoses were still climbing. She reports that she has been and uric for over a year. She has been on dialysis for 1.5 years in goes to dialysis Wednesday. Her last dialysis session was on Wednesday she has not missed any dialysis. He she denies any hematemesis, coffee-ground emesis or melenic stools. She reports that her stools have been normal. She reports that she has been having some left lower chest pain that is been constant for the last 3 days. She denies any eliciting or relieving factors. Her most recent hemoglobin A1c is 8.4% on January 01, 2025 She reports that the only thing that ever helped with her nausea is Benadryl. She does not tolerate Reglan due to muscle spasms. She does have a history of QT prolongation on prior EKGs. Initial EKG on presentation to the ER demonstrated normal QT interval. Patient received Haldol and Benadryl in the ER. Repeat EKG demonstrated QT prolongation with QTC of 501. She receives all of her care at [facility]. Review of Systems 2 Review of Systems: 12 systems were reviewed with pertinent positives and negatives per HPI. Except as documented in the HPI, all other systems were reviewed and are negative. [facility] Past Medical History Medical History (Updated 01/30/25 @ 03:55 by Yanique Campbell DO) Anemia in chronic kidney disease Diabetic gastroparesis Port-A-Cath in place Type 1 diabetes Diagnosed at age 7 Depression Surgical History Surgical History (Updated 01/30/25 @ 03:49 by Yanique Campbell DO) S/P dialysis catheter insertion (~2022) Status post insertion of percutaneous endoscopic gastrostomy (PEG) tube For gastric drainage Status post jejunostomy (12/2024) For feeds History of cholecystectomy Family History Family History Other Family history of cardiovascular disease Social History Social History (Updated 01/30/25 @ 03:53 by Yanique Campbell DO) Social History: She is not and does not have any children. She lives with her mother and is on disability. She is a lifelong nonsmoker and does not drink alcohol or use illicit substances. Code status: Full code Surrogate decision maker: Mother Smoking status: Never smoker Alcohol intake: never Substance use: never Substance use type: does not use Lack of Transportation: No Lack of Food: Never True Current Housing: I Have Housing Concerned About Future Housing: No Difficulty Paying Gas/Electric Bills: No Difficulty Paying for Meds: No Currently Unemployed: YES Education: High School Diploma/GED Difficulty w/ Childcare or Family Care: No Gender identity (if verbalized by the patient): Female Spiritual care concerns: No Meds Home Medications and Allergies Home Medications ?Medication ?Instructions ?Recorded ?Confirmed ?Type insulin glargine 100 unit/mL (3 15 unit subcut .AM 01/29/25 History mL) subcutaneous pen (Lantus Solostar U-100 Insulin) insulin lispro 100 unit/mL 1 sliding scale dose subcut PRN 06/02/22 01/29/25 History subcutaneous pen losartan 25 mg tablet 25 mg PO DAILY 06/02/2201/17 History amlodipine 10 mg tablet 10 mg PO DAILY 01/01/2501/17 History carvedilol 12.5 mg tablet 12.5 mg PO Q12H 01/01/25 History escitalopram oxalate 10 mg tablet 10 mg PO DAILY 01/0101/29/25 History gabapentin 100 mg capsule 100 mg PO TID 01/01/2501/29 History glucagon 0.5 mg/0.1 mL 0.5 mg subcut PRN PRN hypogl ycemia 01/01/25 01/29/25 History subcutaneous auto-injector (Gvoke HypoPen 2-Pack) metoprolol succinate 200 mg 200 mg PO DAILY 01/01/25 1 History tablet,extended release 24 hr isosorbide mononitrate 30 mg 30 mg PO QAM 30 days #30 tabs 01/05/25 01/29/25 Rx tablet,extended release 24 hr pantoprazole 40 mg tablet,delayed 40 mg PO QAM 30 days #30 tabs 01/05/25 01/29/25 Rx release Allergies Allergy/AdvReac Type Severity Reaction Status Date / Time metoclopramide (From [facility]) Allergy Intermediate Muscle Verified 01/29/25 14:35 Spasms hydralazine Allergy Hives Verified 01/29/25 14:35 Vital Signs Vital Signs - 24 hr 01/29/25 14:30 01/29/25 14:48 01/29/25 15:00 Temperature 98.1 F Pulse Rate 102 H 104 H 113 H Respiratory Rate 20 19 18 Blood Pressure 187/86 H Pulse Oximetry 95 93 99 Oxygen Delivery Room Air 01/29/25 15:05 01/29/25 15:09 01/29/25 15:09 Temperature Pulse Rate 116 H 107 H Respiratory Rate 20 17 Blood Pressure 174/100 H 174/100 H Pulse Oximetry 99 98 100 Oxygen Delivery Room Air Room Air 01/29/25 15:15 01/29/25 15:16 01/29/25 15:37 Temperature Pulse Rate Respiratory Rate Blood Pressure 194/106 H Pulse Oximetry 100 100 100 Oxygen Delivery 01/29/25 15:45 01/29/25 16:00 01/29/25 16:15 Temperature Pulse Rate 112 H Respiratory Rate 26 H Blood Pressure Pulse Oximetry 98 99 97 Oxygen Delivery 01/29/25 17:31 01/29/25 17:45 01/29/25 18:00 Temperature Pulse Rate 106 H 104 H Respiratory Rate 18 19 Blood Pressure Pulse Oximetry 98 100 98 Oxygen Delivery 01/29/25 18:15 01/29/25 18:30 01/29/25 18:45 Temperature Pulse Rate 107 H 113 H 101 H Respiratory Rate 15 20 15 Blood Pressure 162/83 H Pulse Oximetry 99 100 97 Oxygen Delivery 01/29/25 19:55 01/29/25 21:36 01/29/25 22:10 Temperature Pulse Rate 103 H 98 98 Respiratory Rate 14 15 15 Blood Pressure 171/87 H 157/70 H 157/70 H Pulse Oximetry 99 95 95 Oxygen Delivery Exam 2 Narrative: Weight 67.2 kg BMI 25.4 Const: Other: Well-developed well-nourished, mildly ill-appearing HENMT: Other: Mucous membranes are dry, no oral pharyngeal erythema, fair dentition Eyes: Other: Pupils are equal and reactive, no scleral icterus, positive conjunctival pallor Neck: Other: Palpable thyroid, no lymphadenopathy Resp: Other: Clear to auscultation bilaterally, no increased work of breathing Cardio: Other: Regular rate, regular rhythm, 2+ bilateral radial pedal pulses GI: Other: Straight mildly tender to palpation, nondistended, G-button in J-tube in place Skin: Other: He is sharp mild pallor, non jaundice Neuro: Other: Lethargic but arouses easily to verbal stimuli, no localizing neurologic deficits noted during conversation Extrem: Other: Trace edema to all extremities Psych: Other: He flat affect, cooperative H&P: Results Labs Labs: Laboratory Tests 01/29/25 16:06 01/29/25 16:06 01/29/25 01/29/25 01/29/25 14:17 16:06 17:39 WBC 13.7 H RBC 3.13 L Hgb 8.9 L Hct 28.1 L MCV 89.8 MCH 28.4 MCHC 31.7 L RDW 15.4 H Plt Count 278 MPV 10.8 H Immature Gran % (Auto) 0.4 Neut % (Auto) 86.1 H Lymph % (Auto) 7.1 L [place] % (Auto) 4.7 Eos % (Auto) 1.5 Baso % (Auto) 0.2 Lymph # (Auto) 0.97 [place] # (Auto) 0.6 Eos # (Auto) 0.2 Baso # (Auto) 0.0 Abs Immat Gran (auto) 0.06 H Absolute Neuts (auto) 11.8 H Absolute Nucleated RBC 0.000 Nucleated RBC % 0.0 PT 15.6 H INR 1.3 APTT 27.6 Puncture Site Left radial ABG pH 7.324 L ABG pCO2 26.3 L ABG pO2 76.8 L ABG PO2/FiO2 Ratio 3.66 ABG HCO3 13.4 L ABG O2 Saturation 94.7 L ABG O2 Content 13.3 L ABG Base Excess -11.3 A-a Gradient 41.4 Oxyhemoglobin 92.7 Carboxyhemoglobin 0.6 Methemoglobin 0.2 Reduced Hemoglobin 6.5 H Total Hemoglobin 10.1 L O2 Delivery Device Room air O2 Liters/Min 0.0 FiO2 21 Sodium 133 L Potassium 5.9 H Chloride 90 L Carbon Dioxide 14 L Anion Gap 29 H BUN 78 H D Creatinine 10.23 H Estim Creat Clear Calc 7 Estimated GFR 4 L Glucose 497 H POC Capillary Glucose 394 H Calcium 9.1 Total Bilirubin 0.8 AST 27 ALT 48 H Alkaline Phosphatase 375 H Troponin I < 0.012 Total Protein 7.9 Albumin 4.5 Nasal MRSA (PCR) 01/29/25 01/29/25 01/29/25 18:24 19:33 20:39 WBC RBC Hgb Hct MCV MCH MCHC RDW Plt Count MPV Immature Gran % (Auto) Neut % (Auto) Lymph % (Auto) [place] % (Auto) Eos % (Auto) Baso % (Auto) Lymph # (Auto) [place] # (Auto) Eos # (Auto) Baso # (Auto) Abs Immat Gran (auto) Absolute Neuts (auto) Absolute Nucleated RBC Nucleated RBC % PT INR APTT Puncture Site ABG pH ABG pCO2 ABG pO2 ABG PO2/FiO2 Ratio ABG HCO3 ABG O2 Saturation ABG O2 Content ABG Base Excess A-a Gradient Oxyhemoglobin Carboxyhemoglobin Methemoglobin Reduced Hemoglobin Total Hemoglobin O2 Delivery Device O2 Liters/Min FiO2 Sodium Potassium Chloride Carbon Dioxide Anion Gap BUN Creatinine Estim Creat Clear Calc Estimated GFR Glucose POC Capillary Glucose 489 H > 500 H* Calcium Total Bilirubin AST ALT Alkaline Phosphatase Troponin I < 0.012 Total Protein Albumin Nasal MRSA (PCR) 01/29/25 01/29/25 21:05 21:39 WBC RBC Hgb Hct MCV MCH MCHC RDW Plt Count MPV Immature Gran % (Auto) Neut % (Auto) Lymph % (Auto) [place] % (Auto) Eos % (Auto) Baso % (Auto) Lymph # (Auto) [place] # (Auto) Eos # (Auto) Baso # (Auto) Abs Immat Gran (auto) Absolute Neuts (auto) Absolute Nucleated RBC Nucleated RBC % PT INR APTT Puncture Site ABG pH ABG pCO2 ABG pO2 ABG PO2/FiO2 Ratio ABG HCO3 ABG O2 Saturation ABG O2 Content ABG Base Excess A-a Gradient Oxyhemoglobin Carboxyhemoglobin Methemoglobin Reduced Hemoglobin Total Hemoglobin O2 Delivery Device O2 Liters/Min FiO2 Sodium Potassium Chloride Carbon Dioxide Anion Gap BUN Creatinine Estim Creat Clear Calc Estimated GFR Glucose POC Capillary Glucose 470 H Calcium Total Bilirubin AST ALT Alkaline Phosphatase Troponin I Total Protein Albumin Nasal MRSA (PCR) Not detected Impressions Chest X-Ray 01/29/25 15:40 Impression: No acute cardiopulmonary abnormality. EKG:Test Date: 2025-01-29 18:41:41 Measurements Intervals [place] Rate: 109 P: 0 NV: 0 QRS: 22 QRSD: 104 T: 43 QT: 371 QTc: 501 Interpretive Statements SINUS TACHYCARDIA INCOMPLETE RIGHT BUNDLE BRANCH BLOCK PEAKED T WAVES- CONSIDER HYPERKALEMIA PROLONGED QT INTERVAL BASELINE ARTIFACT- I, II, III, AVL, V1-V3 ABNORMAL ECG Compared to ECG 01/29/2025 14:34:09 HEART RATE HAS INCREASED Assessment and Plan Assessment and plan (1) DKA, type 1: Qualifiers: Diabetes mellitus complication detail: without coma Qualified Code(s): E10.10 - Type 1 diabetes mellitus with ketoacidosis without coma Code(s): E10.10 - Type 1 diabetes mellitus with ketoacidosis without coma Status: Acute (2) Diabetic gastroparesis: Code(s): E11.43 - Type 2 diabetes mellitus with diabetic autonomic (poly)neuropathy; K31.84 - Gastroparesis Status: Acute (3) End stage renal disease on dialysis: Code(s): N18.6 - End stage renal disease; Z99.2 - Dependence on renal dialysis Status: Acute Plan Patient presents with DKA the setting of intolerance of G-tube feeds and vomiting. Likely some component of starvation ketosis complicating DKA. There is no evidence of underlying acute infection provoking DKA. Patient been started on insulin drip. The patient is not been started on IV fluids due to status is end-stage renal disease patient who this does not produce urine. Nausea medications have been ordered Benadryl which patient reports is the only medication that works for her. However patient does have a mild prolongation of QTC. Will monitor closely on cafeteria monitor. Will avoid additional QT prolonging medications. The risks benefits of medications including affect dysuria QT prolongation were discussed with patient and she understands risks. Will also provide Ativan as needed for intractable nausea vomiting. The patient reports that she does not feel much improvement compared to admission. Gate Shear Operator and Nephrology have been consulted. Patient is due for hemodialysis 01/30/2025. Her potassium is stable. Patient is being monitored with Q 4 hour BMPs. Will continue insulin drip into the patient is able to tolerate jejunostomy feeds. 40 minutes spent in critical care activities. Due to a high probability of clinically significant, life threatening deterioration, the patient required my highest level of preparedness to intervene emergently and I personally spent this critical care time directly and personally managing the patient. This critical care time included obtaining a history; examining the patient; pulse oximetry; ordering and review of studies; arranging urgent treatment with development of a management plan; evaluation of patient's response to treatment; frequent reassessment; and discussions with other providers. It was exclusive of separately billable procedures and treating other patients and teaching time. Please see Assessment and Plan section and the rest of the note for further information on patient assessment and treatment. Quality VTE Prophylaxis VTE prophylaxis: pharmacologic ordered (Heparin 5000 units subQ q.12 hours.) Hospitalist MIPS Advance Care Plan I have confirmed that the patient's Advanced Care Plan is present, code status is documented, or surrogate decision maker is listed in patient medical record.: Yes Medication Reconciliation I have utilized all available resources to obtain, update and review the patients current medications (includes all prescriptions, OTC, herbals, cannabis, and nutritional supplements).: Yes
[2025-01-29 23:52] LABS: Anion Gap 25 mmol/L (4-12); Blood Urea Nitrogen 84 mg/dL (7-17); Calcium 8.7 mg/dL (8.4-10.2); Carbon Dioxide 19 mmol/L (22-30); Chloride 90 mmol/L (98-107); Estimated CRCL calculation 6 ml/min; Estimated Glomerular Filt Rate 4; Glucose 361 mg/dL (65-110); Magnesium 2.9 mg/dL (1.6-2.3); Potassium 4.6 mmol/L (3.4-5.0); Sodium 134 mmol/L (137-145)
[2025-01-30] VITALS (33 sets, daily range): BP systolic 109–189; BP diastolic 51–105; PULSE 82–109; RESP 12–20; TEMP 36.7–37.1; O2SAT 91–100; BMI 26.4
[2025-01-30] MEDS: INSULIN HUMAN REGULAR (*BKC) 100 UNITS in SODIUM CHLORIDE 0.9% IV 99 ML 12.5 UNITS IV CONT (02:29)
[2025-01-30 02:54] LABS: Anion Gap 16 mmol/L (4-12); Blood Urea Nitrogen 95 mg/dL (7-17); Calcium 9.1 mg/dL (8.4-10.2); Carbon Dioxide 28 mmol/L (22-30); Chloride 92 mmol/L (98-107); Estimated CRCL calculation 7 ml/min; Estimated Glomerular Filt Rate 5; Glucose 141 mg/dL (65-110); Potassium 4.4 mmol/L (3.4-5.0); Sodium 136 mmol/L (137-145)
[2025-01-30] MEDS: DEXTROSE 50% 25 GM/50 ML SYRINGE IV PUSH ×2 (04:15→23:20)
[2025-01-30] MEDS: DEXTROSE 5% IN WATER 500 ML 25 ML IV CONT (05:05)
[2025-01-30 06:24] LABS: Hematocrit 28.0 % (37.0-47.0); Hemoglobin 9.0 g/dL (12.0-15.0); Immature Granulocyte Percent A 0.4 % (0-0.5); Lymphocytes Absolute Auto 2.43 K/mm3 (0.9-3.2); Mean Corpuscular HGB Conc 32.1 g/dl (32-36); Mean Corpuscular Hemoglobin 28.3 pg (26-34); Mean Corpuscular Volume 88.1 fl (80-100); Nucleated Red Blood Cells Absolute Auto 0.000 K/mm3 (0.0-0.012); Nucleated Red Blood Cells Perc 0.0 % (0.0-0.2); Platelet Count Result 287 k/mm3 (150-375); Red Blood Count 3.18 M/mm3 (4.2-5.4); White Blood Count 10.5 K/mm3 (4.5-10.0)
[2025-01-30 06:51] LABS: Anion Gap 14 mmol/L (4-12); Blood Urea Nitrogen 90 mg/dL (7-17); Calcium 9.2 mg/dL (8.4-10.2); Carbon Dioxide 32 mmol/L (22-30); Chloride 90 mmol/L (98-107); Estimated CRCL calculation 7 ml/min; Estimated Glomerular Filt Rate 5; Glucose 125 mg/dL (65-110); Magnesium 2.9 mg/dL (1.6-2.3); Potassium 5.2 mmol/L (3.4-5.0); Sodium 136 mmol/L (137-145)
--- NOTE | 2025-01-30 09:35 | PM.CNNEP ---
Assessment and Plan Assessment and plan (1) End stage renal disease: Code(s): N18.6 - End stage renal disease Status: Chronic Assessment and Plan: HD today continue //Wednesday dialyis schedule while hospitalized follow electrolytes, volume status, and clearance outpatient dialysis clinic = [facility] in [place] primary dairy bar manager = Dr. Odilon Tellez (2) DKA (diabetic ketoacidosis): Qualifiers: Diabetes mellitus complication detail: without coma Diabetes mellitus type: type 1 Qualified Code(s): E10.10 - Type 1 diabetes mellitus with ketoacidosis without coma Code(s): E11.10 - Type 2 diabetes mellitus with ketoacidosis without coma Status: Resolved Assessment and Plan: as noted by evaluation in ER recurrent and multiple ER visits/hospitalizations for this use (usually gets most of her care at [facility] and more recently at [facility]) initiated on insulin gtt dialysis should help correct this as well (3) Nausea & vomiting: Qualifiers: Vomiting type: unspecified Qualified Code(s): R11.2 - Nausea with vomiting, unspecified Code(s): R11.2 - Nausea with vomiting, unspecified Status: Acute Assessment and Plan: chronic and long standing issue (per patient and review of records) cyclic in nature thought to be secondary to diabetic gastroparesis s/p recent G-J-tube placement to ensure adequate/supplemental nutrition given this issue (4) Hyperkalemia: Code(s): E87.5 - Hyperkalemia Status: Acute Assessment and Plan: as noted by admission labs and this AM should correct with dialysis follow trend (5) Diabetic gastroparesis: Code(s): E11.43 - Type 2 diabetes mellitus with diabetic autonomic (poly)neuropathy; K31.84 - Gastroparesis Status: Acute Assessment and Plan: known and long standing issue likely precipiting factor for admission symptoms (6) Anemia: Code(s): D64.9 - Anemia, unspecified Status: Chronic Assessment and Plan: due to ESRD Epogen with HD follow trend of H/H (7) Hypertension: Code(s): I10 - Essential (primary) hypertension Status: Chronic Assessment and Plan: quite elevated on admission resume home medications follow trend of hemodyanmics (8) Type 1 diabetes: Qualifiers: Diabetes mellitus complication status: with hyperglycemia Qualified Code(s): E10.65 - Type 1 diabetes mellitus with hyperglycemia Code(s): E10.9 - Type 1 diabetes mellitus without complications Status: Chronic Assessment and Plan: follow accu-chek plan transition to SSI and Lantus once DKA resolved glycemic control per helper chicken farm/hospitalist I will continue to follow the patient with you while she remains hospitalized and make further recommendations as deemed necessary. Thank you for allowing me to participate in the care of this patient. History of Present Illness Reason for Consult Consult date: 01/30/25 Reason for consult: end stage renal disease Chief Complaint Chief complaint: DKA, Vomiting, ESRD History of Present Illness Narrative: The patient is a 29-year-old female with extensive past medical history as outlined below who presented to [facility] Emergency Room with nausea and vomiting. The patient reports that she has not been able to tolerate any tube feeds for the last 3 days. In spite of her diminished oral intake and lack of tube feeds, she continued her home insulin therapy but her blood sugars have continued to run high. She states that she did not have the appropriate supplies for her G-J tube and had difficulty aspirating for her G-J tube for the last 3 days. Despite the inability to aspirate, she had noted drainage from her G-J tube with she connected a drain bag. She denies any fevers, chills, hematemesis, melena, shortness of breath, palpitations, dizziness, or lightheadedness but does admit to some dry heaves and nausea along with left lower chest discomfort. She has attempted to supplement her chronic insulin therapy with p.r.n. doses in effort to control her blood sugars but this apparently did not help. Given these ongoing constellation of symptoms as mentioned, she presented to the emergency room for further assessment. Workup and evaluation emergency room demonstrated the patient to be hemodynamically stable if not a bit hypertensive and slightly tachycardic but afebrile. Routine blood work demonstrated a white blood cell count of 13.7, hemoglobin 8.9, platelet count 278, sodium 133, potassium 5.9, chloride 90, bicarb 14 BUN 78, creatinine 10.23, with a glucose of 497, calcium 9.9, ALT of 48, alkaline phosphatase of 375, negative troponin, and albumin of 4.5. Her ABG showed a pH of 7.32, pCO2 of 26, PO2 of 76.8 on room air. Given her end-stage renal disease, IV fluids were not initiated but she was started on insulin drip for DKA in the context of her intolerance of GJ tube feedings, nausea, and vomiting. She was given IV Benadryl in effort to alleviate her nausea as reportedly this is the only medication that seems to help her. She was subsequently admitted to the intensive care unit for further evaluation and therapy. She was recently at [facility] where she had a G-J tube placement (done 01/09/25) with subsequent hospitalization there again on 01/11 - 01/26 for nausea/vomiting (with a similar presentation as noted here) although she was not in DKA and she improvement with supportive therapy although there was a concern for malingering per discharge summary. From review of her extensive electronic records, she has had several ER visits and hospitalizations are somewhat complicated by her leaving against medical advice on numerous occasions along with some concern that she exhibits drug-seeking behavior (IV benadryl and IV narcotics) for some of her symptoms as well. Renal consultation was requested due to her end-stage renal disease. The patient normally dialyzes on a Wednesday, , Wednesday schedule at [facility] [place] under the care of Dr. Odilon Tellez. She states that she has been on dialysis for about a year or so and that her kidney disease is secondary to her type 1 diabetes. Her last dialysis treatment was on Wednesday (01/27) by report. As already mentioned above, she has had multiple admissions for nausea and cyclic vomiting in association with a diabetic gastroparesis as well as diabetic ketoacidosis -- he usually gets most of her care at [facility] and more recently at [facility] as mentioned above. Currently, the time my evaluation, she is resting comfortably and tolerating her dialysis treatment (seen on HD at 9:25am) Review of Systems Review of Systems: As per HPI. [facility] Past Medical History Medical History Anemia in chronic kidney disease Diabetic gastroparesis Port-A-Cath in place Type 1 diabetes Diagnosed at age 7 Depression Surgical History Surgical History S/P dialysis catheter insertion (~2022) Status post insertion of percutaneous endoscopic gastrostomy (PEG) tube For gastric drainage Status post jejunostomy (12/2024) For feeds History of cholecystectomy Family History Family History Other Family history of cardiovascular disease Social History Social History Social History: She is not and does not have any children. She lives with her mother and is on disability. She is a lifelong nonsmoker and does not drink alcohol or use illicit substances. Code status: Full code Surrogate decision maker: Mother Smoking status: Never smoker Alcohol intake: never Substance use: never Substance use type: does not use Lack of Transportation: No Lack of Food: Never True Current Housing: I Have Housing Concerned About Future Housing: No Difficulty Paying Gas/Electric Bills: No Difficulty Paying for Meds: No Currently Unemployed: YES Education: High School Diploma/GED Difficulty w/ Childcare or Family Care: No Gender identity (if verbalized by the patient): Female Spiritual care concerns: No Meds Home Medications and Allergies Home Medications ?Medication ?Instructions ?Recorded ?Confirmed ?Type insulin glargine 100 unit/mL (3 15 unit subcut .AM 06/02/22 01/29/25 History mL) subcutaneous pen (Lantus Solostar U-100 Insulin) insulin lispro 100 unit/mL 1 sliding scale dose subcut PRN 06/02/22 01/29/25 History subcutaneous pen losartan 25 mg tablet 25 mg PO DAILY 06/02/22 01/29/25 History amlodipine 10 mg tablet 10 mg PO DAILY 01/01/25 01/29/25 History carvedilol 12.5 mg tablet 12.5 mg PO Q12H 01/01/25 01/29/25 History escitalopram oxalate 10 mg tablet 10 mg PO DAILY 01/01/25 01/29/25 History gabapentin 100 mg capsule 100 mg PO TID 01/01/25 01/29/25 History glucagon 0.5 mg/0.1 mL 0.5 mg subcut PRN PRN hypoglycemia 01/01/25 01/29/25 History subcutaneous auto-injector (Gvoke HypoPen 2-Pack) metoprolol succinate 200 mg 200 mg PO DAILY 01/01/25 01/29/25 History tablet,extended release 24 hr isosorbide mononitrate 30 mg 30 mg PO QAM 30 days #30 tabs 01/05/25 01/29/25 Rx tablet,extended release 24 hr pantoprazole 40 mg tablet,delayed 40 mg PO QAM 30 days #30 tabs 01/05/25 01/29/25 Rx release Allergies Allergy/AdvReac Type Severity Reaction Status Date / Time metoclopramide (From Reglan) Allergy Intermediate Muscle Verified 01/29/25 14:35 Spasms hydralazine Allergy Hives Verified 01/29/25 14:35 Vital Signs Vital Signs Temp Pulse Resp BP Pulse Ox O2 Del Method 01/30/25 09:30 95 166/86 H 01/30/25 09:15 91 169/90 H 01/30/25 09:00 91 15 160/63 H 94 01/30/25 09:00 92 175/91 H 01/30/25 08:57 93 181/90 H 01/30/25 08:48 98.2 F 96 14 186/93 H 94 01/30/25 08:00 87 01/30/25 08:00 87 13 93 Room Air 01/30/25 08:00 85 13 162/87 H 93 01/30/25 07:00 89 13 184/97 H 91 01/30/25 06:00 109 H 19 182/105 H 95 01/30/25 06:00 109 H 01/30/25 05:00 82 13 153/81 H 99 01/30/25 04:00 83 01/30/25 04:00 98.5 F 84 15 154/85 H 97 01/30/25 03:00 86 12 146/86 H 92 01/30/25 02:00 87 01/30/25 02:00 87 13 154/81 H 94 01/30/25 01:00 85 14 134/71 94 01/30/25 00:00 90 01/30/25 00:00 98.7 F 90 18 144/69 H 96 01/29/25 23:00 89 19 134/65 93 01/29/25 22:10 98 15 157/70 H 95 01/29/25 22:00 98 01/29/25 22:00 98.6 F 97 20 148/71 H 97 01/29/25 21:36 98 15 157/70 H 95 01/29/25 19:55 103 H 14 171/87 H 99 01/29/25 18:45 101 H 15 97 01/29/25 18:30 113 H 20 162/83 H 100 01/29/25 18:15 107 H 15 99 01/29/25 18:00 104 H 19 98 01/29/25 17:45 100 01/29/25 17:31 106 H 18 98 01/29/25 16:15 112 H 26 H 97 01/29/25 16:00 99 01/29/25 15:45 98 01/29/25 15:37 100 01/29/25 15:16 100 01/29/25 15:15 194/106 H 100 01/29/25 15:09 107 H 17 174/100 H 100 01/29/25 15:09 98 Room Air 01/29/25 15:05 116 H 20 174/100 H 99 Room Air 01/29/25 15:00 113 H 18 99 01/29/25 14:48 104 H 19 93 01/29/25 14:30 98.1 F 102 H 20 187/86 H 95 Room Air Exam Narrative: GENERAL APPEARANCE: well developed well nourished female in no acute distress HEENT: normocephalic, atraumatic, normal conjunctiva and sclera, nares patient NECK: no lymphadenopathy, thyromegaly, or JVD MOUTH: normal lips, teeth, and gums CARDIOVASCULAR: RRR, normal S1 and S2, no rub RESPIRATORY: clear to auscultation bilaterally ABDOMEN: soft, nontender, nondistended, positive bowel sounds present EXTREMITIES: no evidence of cyanosis, clubbing, or edema NEUROLOGICAL: alert and oriented x 3; CN II - XII intact bilaterally; no focal deficits noted Results Lab Results 01/30/25 06:18 01/30/25 06:18 Lab results: Most recent lab results ABG pH 7.324 (7.350-7.450) L 01/29/25 17:39 ABG pCO2 26.3 mmHg (35.0-45.0) L 01/29/25 17:39 ABG pO2 76.8 mmHg (80.0-100.0) L 01/29/25 17:39 ABG HCO3 13.4 mEq/l (22.0-26.0) L 01/29/25 17:39 ABG O2 Saturation 94.7 % (95.0-100.0) L 01/29/25 17:39 Calcium 9.2 mg/dL (8.4-10.2) 01/30/25 06:18 Phosphorus 4.1 mg/dL (2.5-4.5) 01/30/25 06:18 Magnesium 2.9 mg/dL (1.6-2.3) H 01/30/25 06:18
[2025-01-30] MEDS: EPOETIN ALFA-EPBX 10,000 UNITS/ML VIAL 10000 UNITS IV PUSH (10:17)
[2025-01-30] MEDS: ONDANSETRON INJ 4 MG/2 ML VIAL ×2 (10:39→18:35)
--- NOTE | 2025-01-30 11:13 | WPDCNINT ---
Assessment and Plan Assessment and plan (1) DKA, type 1: Qualifiers: Diabetes mellitus complication detail: without coma Qualified Code(s): E10.10 - Type 1 diabetes mellitus with ketoacidosis without coma Code(s): E10.10 - Type 1 diabetes mellitus with ketoacidosis without coma Status: Acute Assessment and Plan: Pt was not given given IVF due to answer when disease Insulin infusion was started and Q1H glucose monitoring is being done. Currently off due to drop in blood sugars Serial labs are being done Patient is also getting dialyzed Replace electrolytes as needed Her metabolic acidosis anion gap was complicated by history of end-stage renal disease. I will check labs after dialysis and will try to transition her to to subcutaneous insulin after dialysis (2) Nausea & vomiting: Qualifiers: Vomiting type: unspecified Qualified Code(s): R11.2 - Nausea with vomiting, unspecified Code(s): R11.2 - Nausea with vomiting, unspecified Status: Acute Assessment and Plan: History of chronic nausea vomiting. Currently feels better (3) End stage renal disease on dialysis: Code(s): N18.6 - End stage renal disease; Z99.2 - Dependence on renal dialysis Status: Acute Assessment and Plan: Patient is getting dialyzed at this time I have discussed with nephrology regarding not removing additional fluid as patient has had limited p.o. intake over last few days (4) SIRS (systemic inflammatory response syndrome): Code(s): R65.10 - Systemic inflammatory response syndrome (SIRS) of non-infectious origin without acute organ dysfunction Status: Acute Assessment and Plan: Findings suggestive of sirs likely from DKA although blood cultures have been sent and are pending. I will also check procalcitonin level and UA (5) Hypertension: Code(s): I10 - Essential (primary) hypertension Status: Chronic Assessment and Plan: Continue Coreg amlodipine Imdur and Cozaar Plan DVT prophylaxis -heparin subQ Stress ulcer prophylaxis -protonic Nutrition -start Tube Feeds Code Status - Full Code Total Critical Care Time - 30 minutes Due to a high probability of clinically significant, life threatening deterioration, the patient required my highest level of preparedness to intervene emergently and I personally spent this critical care time directly and personally managing the patient. This critical care time included obtaining a history; examining the patient; pulse oximetry; ordering and review of studies; arranging urgent treatment with development of a management plan; evaluation of patient's response to treatment; frequent reassessment; and discussions with other providers. It was exclusive of separately billable procedures and treating other patients and teaching time. Please see Assessment and Plan section and the rest of the note for further information on patient assessment and treatment [employer] Consult Note Consult date: 01/30/25 Reason for consult: DKA, and stated in disease HPI: Lynette Bellamy is a 29 year old female with a past medical history of end-stage renal disease due to type 1 diabetes mellitus with complications including diabetic peripheral neuropathy and gastroparesis status post recent GJ-tube placement for decompression and J-tube placement for enteral feeds who presented to the ER with 3 days of nausea vomiting and couple of hours of left-sided chest pain. Patient reports that she has not been able to tolerate any tube feeds for the last 3 days. She normally is on Nepro at night. She claims she was taking her Lantus and with meals sliding scale during the day regularly. She reported that she did not have the appropriate supplies for her G-tube and was unable to aspirate air from her G button for the last 3 days. She has kept her drain bag in place in she did have a proximally 250 mL of drainage. She denied having any fevers or chills. She has been having nausea and dry heaves. She states her blood glucose was running high. She came she had dialysis on Wednesday and has not missed any session. She is on Wednesday schedule. She denied any hematemesis, coffee-ground emesis or melenic stools. She reports that her stools have been normal. She reports that she has been having some left lower chest pain upper abdominal that is been constant for the last 3 days but has not result. She denied any eliciting or relieving factors. Her most recent hemoglobin A1c is 8.4% on January 01, 2025 Workup in the ER showed elevated blood glucose WBC 13.7, metabolic acidosis on the ABG BUN 78 creatinine 10.23 blood glucose 497 potassium 5.9 CO2 14 She does have a history of QT prolongation on prior EKGs. Initial EKG on presentation to the ER demonstrated normal QT interval. Patient received Haldol and Benadryl in the ER. Repeat EKG demonstrated QT prolongation with QTC of 501. Patient was started on IV insulin infusion admitted to ICU for DKA. Nephrology consulted for dialysis. She was not given sitting on a fluids due to her answering disease overnight her blood sugars improved and insulin drip was turned off. She was hypoglycemic and was started on D5 water at 25 mL/hour This morning she states she feels better and would like to try food. She denies any new complaints and all the systems were reviewed and were negative Review of Systems Review of Systems: All systems reviewed & are unremarkable except as noted in HPI and below (HPI) [facility] Past Medical History Medical History Anemia in chronic kidney disease Diabetic gastroparesis Port-A-Cath in place Type 1 diabetes Diagnosed at age 7 Depression Surgical History Surgical History S/P dialysis catheter insertion (~2022) Status post insertion of percutaneous endoscopic gastrostomy (PEG) tube For gastric drainage Status post jejunostomy (12/2024) For feeds History of cholecystectomy Family History Family History Other Family history of cardiovascular disease Social History Social History Social History: She is not and does not have any children. She lives with her mother and is on disability. She is a lifelong nonsmoker and does not drink alcohol or use illicit substances. Code status: Full code Surrogate decision maker: Mother Smoking status: Never smoker Alcohol intake: never Substance use: never Substance use type: does not use Lack of Transportation: No Lack of Food: Never True Current Housing: I Have Housing Concerned About Future Housing: No Difficulty Paying Gas/Electric Bills: No Difficulty Paying for Meds: No Currently Unemployed: YES Education: High School Diploma/GED Difficulty w/ Childcare or Family Care: No Gender identity (if verbalized by the patient): Female Spiritual care concerns: No Meds Home Medications and Allergies Home Medications ?Medication ?Instructions ?Recorded ?Confirmed ?Type insulin glargine 100 unit/mL (3 15 unit subcut .AM 06/02/22 01/29/25 History mL) subcutaneous pen (Lantus Solostar U-100 Insulin) insulin lispro 100 unit/mL 1 sliding scale dose subcut PRN 06/02/22 01/29/25 History subcutaneous pen losartan 25 mg tablet 25 mg PO DAILY 06/02/22 01/29/25 History amlodipine 10 mg tablet 10 mg PO DAILY 01/01/25 01/29/25 History carvedilol 12.5 mg tablet 12.5 mg PO Q12H 01/01/25 01/29/25 History escitalopram oxalate 10 mg tablet 10 mg PO DAILY 01/01/25 01/29/25 History gabapentin 100 mg capsule 100 mg PO TID 01/01/25 01/29/25 History glucagon 0.5 mg/0.1 mL 0.5 mg subcut PRN PRN hypoglycemia 01/01/25 01/29/25 History subcutaneous auto-injector (Gvoke HypoPen 2-Pack) metoprolol succinate 200 mg 200 mg PO DAILY 01/01/25 01/29/25 History tablet,extended release 24 hr isosorbide mononitrate 30 mg 30 mg PO QAM 30 days #30 tabs 01/05/25 01/29/25 Rx tablet,extended release 24 hr pantoprazole 40 mg tablet,delayed 40 mg PO QAM 30 days #30 tabs 01/05/25 01/29/25 Rx release Allergies Allergy/AdvReac Type Severity Reaction Status Date / Time metoclopramide (From [employer] 1 [employer]) Allergy Intermediate Muscle Verified 01/29/25 14:35 Spasms hydralazine Allergy Hives Verified 01/29/25 14:35 Vital Signs Vital Signs - 24 hr 01/29/25 14:30 01/29/25 14:48 01/29/25 15:00 Temperature 36.7 C Pulse Rate 102 H 104 H 113 H Respiratory Rate 20 19 18 Blood Pressure 187/86 H Pulse Oximetry 95 93 99 Oxygen Delivery Room Air 01/29/25 15:05 01/29/25 15:09 01/29/25 15:09 Temperature Pulse Rate 116 H 107 H Respiratory Rate 20 17 Blood Pressure 174/100 H 174/100 H Pulse Oximetry 99 98 100 Oxygen Delivery Room Air Room Air 01/29/25 15:15 01/29/25 15:16 01/29/25 15:37 Temperature Pulse Rate Respiratory Rate Blood Pressure 194/106 H Pulse Oximetry 100 100 100 Oxygen Delivery 01/29/25 15:45 01/29/25 16:00 01/29/25 16:15 Temperature Pulse Rate 112 H Respiratory Rate 26 H Blood Pressure Pulse Oximetry 98 99 97 Oxygen Delivery 01/29/25 17:31 01/29/25 17:45 01/29/25 18:00 Temperature Pulse Rate 106 H 104 H Respiratory Rate 18 19 Blood Pressure Pulse Oximetry 98 100 98 Oxygen Delivery 01/29/25 18:15 01/29/25 18:30 01/29/25 18:45 Temperature Pulse Rate 107 H 113 H 101 H Respiratory Rate 15 20 15 Blood Pressure 162/83 H Pulse Oximetry 99 100 97 Oxygen Delivery 01/29/25 19:55 01/29/25 21:36 01/29/25 22:00 Temperature 37.0 C Pulse Rate 103 H 98 97 Respiratory Rate 14 15 20 Blood Pressure 171/87 H 157/70 H 148/71 H Pulse Oximetry 99 95 97 Oxygen Delivery 01/29/25 22:00 01/29/25 22:10 01/29/25 23:00 Temperature Pulse Rate 98 98 89 Respiratory Rate 15 19 Blood Pressure 157/70 H 134/65 Pulse Oximetry 95 93 Oxygen Delivery 01/30/25 00:00 01/30/25 00:00 01/30/25 01:00 Temperature 37.1 C Pulse Rate 90 90 85 Respiratory Rate 18 14 Blood Pressure 144/69 H 134/71 Pulse Oximetry 96 94 Oxygen Delivery 01/30/25 02:00 01/30/25 02:00 01/30/25 03:00 Temperature Pulse Rate 87 87 86 Respiratory Rate 13 12 Blood Pressure 154/81 H 146/86 H Pulse Oximetry 94 92 Oxygen Delivery 01/30/25 04:00 01/30/25 04:00 01/30/25 05:00 Temperature 36.9 C Pulse Rate 84 83 82 Respiratory Rate 15 13 Blood Pressure 154/85 H 153/81 H Pulse Oximetry 97 99 Oxygen Delivery 01/30/25 06:00 01/30/25 06:00 01/30/25 07:00 Temperature Pulse Rate 109 H 109 H 89 Respiratory Rate 19 13 Blood Pressure 182/105 H 184/97 H Pulse Oximetry 95 91 Oxygen Delivery 01/30/25 08:00 01/30/25 08:00 01/30/25 08:00 Temperature Pulse Rate 85 87 87 Respiratory Rate 13 13 Blood Pressure 162/87 H Pulse Oximetry 93 93 Oxygen Delivery Room Air 01/30/25 08:48 01/30/25 08:57 01/30/25 09:00 Temperature 36.8 C Pulse Rate 96 93 92 Respiratory Rate 14 Blood Pressure 186/93 H 181/90 H 175/91 H Pulse Oximetry 94 Oxygen Delivery 01/30/25 09:00 01/30/25 09:15 01/30/25 09:30 Temperature Pulse Rate 91 91 95 Respiratory Rate 15 Blood Pressure 160/63 H 169/90 H 166/86 H Pulse Oximetry 94 Oxygen Delivery 01/30/25 09:45 01/30/25 10:00 01/30/25 10:00 Temperature Pulse Rate 91 91 90 Respiratory Rate Blood Pressure 160/80 H 149/78 H Pulse Oximetry Oxygen Delivery 01/30/25 10:00 01/30/25 10:15 01/30/25 10:30 Temperature Pulse Rate 90 90 97 Respiratory Rate 16 Blood Pressure 149/79 H 162/80 H 175/86 H Pulse Oximetry 94 Oxygen Delivery 01/30/25 10:45 01/30/25 11:00 Temperature Pulse Rate 92 92 Respiratory Rate Blood Pressure 175/88 H 183/93 H Pulse Oximetry Oxygen Delivery Exam Narrative: General: Pt is alert awake and in NAD Lungs/Chest: Trachea central Clear BS B/L, No crackles or wheezing. Port-A-Cath in left anterior chest, dialysis catheter in right anterior chest. Cardiac: RRR. Normal S1 S2. No murmurs Circulation: Pedal pulses are intact and symmetrical. Abdomen: Normal bowel sounds.. Soft. NT. ND. Gastric tube in place Extremities: No clubbing, cyanosis or edema. Warm : [place] in place Neurologic: Follows commands. Moves all 4 extremities PERRL Skin: No Rash Results Labs 01/30/25 06:18 01/30/25 06:18 Labs: Short CBC 01/29/25 01/30/25 Range/Units 16:06 06:18 WBC 13.7 H 10.5 H (4.5-10.0) K/mm3 Hgb 8.9 L 9.0 L (12.0-15.0) g/dL Hct 28.1 L 28.0 L (37.0-47.0) % Plt Count 278 287 (150-375) k/mm3 BMP 01/29/25 01/29/25 01/30/25 16:06 23:30 02:28 Sodium 133 L 134 L 136 L Potassium 5.9 H 4.6 4.4 Chloride 90 L 90 L 92 L Carbon Dioxide 14 L 19 L 28 BUN 78 H D 84 H 95 H D Creatinine 10.23 H 10.32 H 10.15 H Glucose 497 H 361 H 141 H Calcium 9.1 8.7 9.1 01/30/25 06:18 Sodium 136 L Potassium 5.2 H Chloride 90 L Carbon Dioxide 32 H BUN 90 H Creatinine 9.98 H Glucose 125 H Calcium 9.2 Cardiac Enzymes 01/29/25 01/29/25 Range/Units 16:06 18:24 Troponin I < 0.012 < 0.012 (0.000-0.034) ng/mL Liver Function 01/29/25 Range/Units 16:06 Total Bilirubin 0.8 (0.2-1.3) mg/dL AST 27 (14-36) U/L ALT 48 H (6-35) U/L Alkaline Phosphatase 375 H (38-126) U/L Albumin 4.5 (3.5-5.1) g/dL
[2025-01-30] MEDS: HYDROmorphone HCL INJ (*CRX) 1 MG/ML SYR 0.5 MG IV PUSH ×3 (11:41→22:50)
[2025-01-30] MEDS: PANTOPRAZOLE SODIUM IV 40 MG VIAL IV PUSH ×2 (12:51→21:09)
[2025-01-30] MEDS: GABAPENTIN 100 MG CAPSULE PO (12:51)
[2025-01-30] MEDS: ESCITALOPRAM OXALATE 10 MG TABLET PO (12:51)
[2025-01-30] MEDS: LOSARTAN POTASSIUM 25 MG TABLET PO (12:52)
[2025-01-30] MEDS: ISOSORBIDE MONONITRATE 30 MG TAB.ER.24H PO (12:52)
--- NOTE | 2025-01-30 12:54 | ECG_ITS ---
Test Date: 2025-01-30 13:02:06 Measurements Intervals [place] Rate: 96 P: 37 [place]: 144 QRS: 13 QRSD: 90 T: 54 QT: 387 QTc: 490 Interpretive Statements SINUS RHYTHM DELAYED PRECORDIAL R/S TRANSITION BORDERLINE ST-T WAVE ABNORMALITY- HIGH LATERAL LEADS BASELINE ARTIFACT- I, II, III, AVR, AVL, AVF, V1-V6 BORDERLINE ECG Compared to ECG 01/29/2025 18:41:41 HEART RATE HAS DECREASED Electronically Signed On 01-30-2025 14:15:57 CDT by Davy Torres D.O.
[2025-01-30 13:15] LABS: Anion Gap 9 mmol/L (4-12); Blood Urea Nitrogen 24 mg/dL (7-17); Calcium 8.7 mg/dL (8.4-10.2); Carbon Dioxide 31 mmol/L (22-30); Chloride 99 mmol/L (98-107); Estimated CRCL calculation 18 ml/min; Estimated Glomerular Filt Rate 15; Glucose 56 mg/dL (65-110); Potassium 3.4 mmol/L (3.4-5.0); Sodium 139 mmol/L (137-145)
[2025-01-30] MEDS: CENTRAL LINE FLUSH 10 ML IV PUSH ×2 (13:31→21:09)
[2025-01-30] MEDS: DEXTROSE 50% 25 GM/50 ML SYRINGE (13:38)
[2025-01-30] MEDS: diazePAM INJ (*CRX) 10 MG/2 ML SYRINGE 5 MG IV PUSH (14:04)
[2025-01-30] MEDS: INSULIN GLARGINE (*BKC) 100 UNITS/ML 20 UNITS SUB-Q (15:39)
[2025-01-30] MEDS: INSULIN ASPART (*BKC) 100 UNITS/ML SUB-Q (17:41)
[2025-01-31] VITALS (9 sets, daily range): BP systolic 131–171; BP diastolic 75–88; PULSE 79–98; RESP 13–19; TEMP 36.4–37.1; O2SAT 92–100
[2025-01-31] MEDS: diazePAM INJ (*CRX) 10 MG/2 ML SYRINGE 5 MG IV PUSH (00:48)
[2025-01-31] MEDS: HYDROmorphone HCL INJ (*CRX) 1 MG/ML SYR 0.5 MG IV PUSH ×5 (04:42→21:11)
[2025-01-31 06:16] LABS: Hematocrit 27.8 % (37.0-47.0); Hemoglobin 8.6 g/dL (12.0-15.0); Mean Corpuscular HGB Conc 30.9 g/dl (32-36); Mean Corpuscular Hemoglobin 28.5 pg (26-34); Mean Corpuscular Volume 92.1 fl (80-100); Platelet Count Result 214 k/mm3 (150-375); Red Blood Count 3.02 M/mm3 (4.2-5.4); White Blood Count 4.9 K/mm3 (4.5-10.0)
[2025-01-31] MEDS: CENTRAL LINE FLUSH 10 ML IV PUSH ×3 (06:21→20:09)
[2025-01-31 06:40] LABS: Alanine Aminotransferase 41 U/L (6-35); Albumin Level 3.7 g/dL (3.5-5.1); Alkaline Phosphatase 247 U/L (38-126); Anion Gap 12 mmol/L (4-12); Aspartate Amino Transferase 31 U/L (14-36); Bilirubin,Total 0.4 mg/dL (0.2-1.3); Blood Urea Nitrogen 35 mg/dL (7-17); Calcium 8.4 mg/dL (8.4-10.2); Carbon Dioxide 30 mmol/L (22-30); Chloride 99 mmol/L (98-107); Estimated CRCL calculation 13 ml/min; Estimated Glomerular Filt Rate 9; Glucose 39 mg/dL (65-110); Magnesium 2.4 mg/dL (1.6-2.3); Potassium 3.9 mmol/L (3.4-5.0); Sodium 141 mmol/L (137-145); Total Protein 6.8 g/dL (6.3-8.2)
[2025-01-31] MEDS: DEXTROSE 50% 25 GM/50 ML SYRINGE IV PUSH (06:45)
[2025-01-31 06:56] LABS: Procalcitonin 2.8 ng/mL
[2025-01-31] MEDS: ISOSORBIDE MONONITRATE 30 MG TAB.ER.24H PO (08:19)
[2025-01-31] MEDS: GABAPENTIN 100 MG CAPSULE PO ×3 (08:19→16:12)
[2025-01-31] MEDS: ESCITALOPRAM OXALATE 10 MG TABLET PO (08:20)
[2025-01-31] MEDS: PANTOPRAZOLE SODIUM IV 40 MG VIAL IV PUSH ×2 (08:20→20:06)
[2025-01-31] MEDS: LOSARTAN POTASSIUM 25 MG TABLET PO (08:20)
--- NOTE | 2025-01-31 09:31 | PM.IMPN ---
Progress Note: A&P Assessment and Plan (1) DKA, type 1: Qualifiers: Diabetes mellitus complication detail: without coma Qualified Code(s): E10.10 - Type 1 diabetes mellitus with ketoacidosis without coma Code(s): E10.10 - Type 1 diabetes mellitus with ketoacidosis without coma Status: Acute Assessment and Plan: Pt was not given given IVF due to ESRD Insulin infusion was started and Q1H glucose monitoring is being done. Currently off due to drop in blood sugars Anion gap has now closed and patient has been transition to subcutaneous insulin Her metabolic acidosis anion gap was complicated by history of end-stage renal disease. I will check labs after dialysis and will try to transition her to to subcutaneous insulin after dialysis (2) Nausea & vomiting: Qualifiers: Vomiting type: unspecified Qualified Code(s): R11.2 - Nausea with vomiting, unspecified Code(s): R11.2 - Nausea with vomiting, unspecified Status: Acute Assessment and Plan: History of chronic nausea vomiting. Currently feels better (3) End stage renal disease on dialysis: Code(s): N18.6 - End stage renal disease; Z99.2 - Dependence on renal dialysis Status: Acute Assessment and Plan: Patient was [id number] and will be dialyzed by Nephrology (4) SIRS (systemic inflammatory response syndrome): Code(s): R65.10 - Systemic inflammatory response syndrome (SIRS) of non-infectious origin without acute organ dysfunction Status: Acute Assessment and Plan: Findings suggestive of sirs likely from DKA although blood cultures have been sent and are pending. Procalcitonin level is 2.5 but patient is afebrile with normal WBC count. Hold any antibiotics and monitor this time UA is pending (5) Hypertension: Code(s): I10 - Essential (primary) hypertension Status: Chronic Assessment and Plan: Continue Coreg amlodipine Imdur and Cozaar (6) Type 1 diabetes: Qualifiers: Diabetes mellitus complication status: with hyperglycemia Qualified Code(s): E10.65 - Type 1 diabetes mellitus with hyperglycemia Code(s): E10.9 - Type 1 diabetes mellitus without complications Status: Chronic Assessment and Plan: Patient was started Lantus and sliding scale and on tube feeds. She had episode of hypoglycemia. I will increase the tube feed rate to 50 mL/hour. She takes 20 units of Lantus at home which will be continued but next dose will be tonight. Continue blood glucose monitoring I anticipate by increasing tube feeds she will not need dextrose infusion. She has not been eating much due to nausea. Plan DVT prophylaxis -heparin subQ Stress ulcer prophylaxis -protonix Nutrition -continue Tube Feeds Code Status - Full Code Subjective Date/time seen: 01/31/25 Overnight events reviewed. Patient had episode of hypoglycemia required D50 administration. She is on tube feeds at 20 mL/hour. She is afebrile. She states she has some pain in epigastric area. She also has had some nausea but no vomiting. She had dialysis yesterday. Vital signs have been stable. All other systems were reviewed and were negative. Review of Systems Review of Systems: All systems reviewed & are unremarkable except as noted in HPI and below (HPI) Exam Narrative: General: Pt is alert awake and in NAD Lungs/Chest: Trachea central Clear BS B/L, No crackles or wheezing. Port-A-Cath in left anterior chest, dialysis catheter in right anterior chest. Cardiac: RRR. Normal S1 S2. No murmurs Circulation: Pedal pulses are intact and symmetrical. Abdomen: Normal bowel sounds.. Soft. Mild tenderness to palpation are on abdomen ND. Gastric tube in place Extremities: No clubbing, cyanosis or edema. Warm : Ferris in place Neurologic: Follows commands. Moves all 4 extremities PERRL Skin: No Rash Objective Data Vital Signs Vital Signs: Vital Signs - 24 hr 01/30/25 09:45 01/30/25 10:00 01/30/25 10:00 Temperature Pulse Rate 91 91 90 Respiratory Rate Blood Pressure 160/80 H 149/78 H Pulse Oximetry Oxygen Delivery 01/30/25 10:00 01/30/25 10:15 01/30/25 10:30 Temperature Pulse Rate 90 90 97 Respiratory Rate 16 Blood Pressure 149/79 H 162/80 H 175/86 H Pulse Oximetry 94 Oxygen Delivery 01/30/25 10:45 01/30/25 11:00 01/30/25 11:00 Temperature Pulse Rate 92 92 92 Respiratory Rate 15 Blood Pressure 175/88 H 183/93 H 183/93 H Pulse Oximetry 94 Oxygen Delivery 01/30/25 11:15 01/30/25 11:30 01/30/25 11:45 Temperature Pulse Rate 92 97 94 Respiratory Rate Blood Pressure 180/86 H 170/90 H 175/89 H Pulse Oximetry Oxygen Delivery 01/30/25 12:00 01/30/25 12:00 01/30/25 12:00 Temperature Pulse Rate 107 H 98 98 Respiratory Rate 20 Blood Pressure 182/92 H Pulse Oximetry 97 Oxygen Delivery Room Air 01/30/25 12:00 01/30/25 12:15 01/30/25 12:51 Temperature 36.7 C 37.1 C Pulse Rate 98 104 H 100 Respiratory Rate 20 18 Blood Pressure 182/92 H 181/99 H Pulse Oximetry 97 100 Oxygen Delivery 01/30/25 13:00 01/30/25 14:00 01/30/25 14:00 Temperature Pulse Rate 98 85 85 Respiratory Rate 20 13 Blood Pressure 189/94 H Pulse Oximetry 97 Oxygen Delivery 01/30/25 14:00 01/30/25 15:00 01/30/25 16:00 Temperature 36.8 C Pulse Rate 83 84 Respiratory Rate 19 15 Blood Pressure 166/90 H 113/57 L 109/51 L Pulse Oximetry Oxygen Delivery 01/30/25 17:53 01/30/25 20:00 01/30/25 20:00 Temperature Pulse Rate 99 Respiratory Rate Blood Pressure Pulse Oximetry 97 Oxygen Delivery Room Air Room Air 01/30/25 21:08 01/31/25 00:00 01/31/25 00:00 Temperature 37.1 C Pulse Rate 97 79 80 Respiratory Rate 13 Blood Pressure 131/77 Pulse Oximetry 92 Oxygen Delivery 01/31/25 04:00 01/31/25 08:00 01/31/25 08:19 Temperature 36.8 C Pulse Rate 80 91 90 Respiratory Rate 19 Blood Pressure 171/88 H Pulse Oximetry 98 Oxygen Delivery Intake/Output Intake/Output: Intake & Output 01/28/25 01/29/25 01/30/25 01/31/25 23:59 23:59 23:59 23:59 Intake Total 37.7 173.7 542 Output Total 300 450 50 Balance -262.3 -276.3 492 Meds/Results Medications: Active Medications Generic Name Dose Route Start Last Admin Trade Name Freq PRN Reason Stop Dose Admin Acetaminophen 650 mg 01/29/25 20:44 Acetaminophen 325 Mg Tablet PO Q4H PRN Mild Pain (1-3) or Fever Amlodipine Besylate 10 mg 01/30/25 09:00 01/31/25 08:20 Amlodipine Besylate 10 Mg Tablet PO 10 mg DAILY JAYME Administration Carvedilol 12.5 mg 01/30/25 09:00 01/31/25 08:19 Carvedilol 12.5 Mg Tablet PO 12.5 mg Q12H JAYME Administration Dextrose 12.5 gm 01/30/25 14:22 01/31/25 06:45 Dextrose 50% 25 Gm/50 Ml Syringe IV PUSH 12.5 gm PRN PRN Administration Hypoglycemia Protocol Diazepam 5 mg 01/29/25 22:29 01/31/25 00:48 Diazepam Inj (*Crx) 10 Mg/2 Ml Syringe IV PUSH 5 mg Q6H PRN Administration Intractable nausea vomiting Diphenhydramine HCl 50 mg 01/29/25 22:10 01/31/25 06:51 Diphenhydramine Hcl Inj 50 Mg/Ml Vial IV PUSH 50 mg Q4H PRN Administration Itching Escitalopram Oxalate 10 mg 01/30/25 09:00 01/31/25 08:20 Escitalopram Oxalate 10 Mg Tablet PO 10 mg DAILY JAYME Administration Gabapentin 100 mg 01/30/25 09:00 01/31/25 08:19 Gabapentin 100 Mg Capsule PO 100 mg TID JAYME Administration Glucagon 1 mg 01/30/25 14:22 Glucagon For Inj 1 Mg Vial IM PRN PRN Hypoglycemia Protocol Glucose 15 gm 01/30/25 14:22 Glucose Oral Gel 15 Gm Of Glucse In 37.5 Gm Tube PO PRN PRN Hypoglycemia Protocol Heparin Sodium (Beef Lung) 50 units 01/31/25 09:00 01/31/25 08:21 Heparin Flush 50 Units/5 Ml Syringe IV PUSH 50 units QAM JAYME Administration Heparin Sodium (Beef Lung) 50 units 01/30/25 10:15 Heparin Flush 50 Units/5 Ml Syringe IV PUSH PRN PRN after intermittent infusion Heparin Sodium (Beef Lung) 50 units 01/30/25 10:15 Heparin Flush 50 Units/5 Ml Syringe IV PUSH PRN PRN after blood draws Heparin Sodium (Porcine) 5,000 units 01/30/25 09:00 01/31/25 08:21 Heparin Sodium 5,000 Units/Ml Vial SUB-Q Not Given Q12HR JAYME Heparin Sodium (Porcine) 500 units 01/30/25 10:15 Heparin Sodium Lock Flush 500 Units/5 Ml Syringe IV PUSH PRN PRN see comments below Hydromorphone HCl 0.5 mg 01/30/25 11:31 01/31/25 08:41 Hydromorphone Hcl Inj (*Crx) 1 Mg/Ml Syr IV PUSH 0.5 mg Q2H PRN Administration Pain Rated 7-10 Albumin Human 50 mls @ 999 mls/hr 01/30/25 05:27 Albutein IVPB 03/01/25 05:26 Q10M PRN HYPOTENSION Dextrose 1,000 mls @ 100 mls/hr 01/30/25 14:22 Dextrose 5% 1,000 Ml IVPB PRN PRN Hypoglycemia Protocol Insulin Aspart 4 - 8 units 01/30/25 17:00 01/31/25 08:21 Insulin Aspart (*Bkc) 100 Units/Ml SUB-Q Not Given Q4HR JAYME Protocol Insulin Glargine 20 units 01/30/25 21:00 01/30/25 15:39 Insulin Glargine (*Bkc) 100 Units/Ml SUB-Q 20 units HS JAYME Administration Isosorbide Mononitrate 30 mg 01/30/25 09:00 01/31/25 08:19 Isosorbide Mononitrate 30 Mg Tab.Er.24h PO 30 mg QAM JAYME Administration Losartan Potassium 25 mg 01/30/25 09:00 01/31/25 08:20 Losartan Potassium 25 Mg Tablet PO 25 mg DAILY JAYME Administration Ondansetron HCl 4 mg 01/30/25 18:35 Ondansetron Inj 4 Mg/2 Ml Vial IV PUSH Q4H PRN Nausea And Vomiting Pantoprazole Sodium 40 mg 01/30/25 09:00 01/31/25 08:20 Pantoprazole Sodium Iv 40 Mg Vial IV PUSH 40 mg Q12HR JAYME Administration Sodium Chloride 10 ml 01/30/25 14:00 01/31/25 06:21 Central Line Flush IV PUSH 10 ml Q8HR JAYME Administration Radiology Results: ITS Impressions Chest X-Ray 01/29/25 15:40 Impression: No acute cardiopulmonary abnormality. Labs Labs: Laboratory Results - last 24 hr 01/30/25 01/30/25 01/30/25 09:32 10:28 11:24 WBC RBC Hgb Hct MCV MCH MCHC RDW Plt Count MPV Sodium Potassium Chloride Carbon Dioxide Anion Gap BUN Creatinine Estim Creat Clear Calc Estimated GFR Glucose POC Capillary Glucose 186 H 163 H 108 H Calcium Magnesium Total Bilirubin AST ALT Alkaline Phosphatase Total Protein Albumin Procalcitonin 01/30/25 01/30/25 01/30/25 12:42 14:02 15:11 WBC RBC Hgb Hct MCV MCH MCHC RDW Plt Count MPV Sodium 139 Potassium 3.4 Chloride 99 Carbon Dioxide 31 H Anion Gap 9 BUN 24 H D Creatinine 3.64 H Estim Creat Clear Calc 18 Estimated GFR 15 L Glucose 56 L* POC Capillary Glucose 156 H 291 H Calcium 8.7 Magnesium Total Bilirubin AST ALT Alkaline Phosphatase Total Protein Albumin Procalcitonin 01/30/25 01/30/25 01/30/25 17:01 21:05 23:14 WBC RBC Hgb Hct MCV MCH MCHC RDW Plt Count MPV Sodium Potassium Chloride Carbon Dioxide Anion Gap BUN Creatinine Estim Creat Clear Calc Estimated GFR Glucose POC Capillary Glucose 340 H 107 H 66 Calcium Magnesium Total Bilirubin AST ALT Alkaline Phosphatase Total Protein Albumin Procalcitonin 01/31/25 01/31/25 01/31/25 00:04 00:45 04:39 WBC 4.9 RBC 3.02 L Hgb 8.6 L Hct 27.8 L MCV 92.1 MCH 28.5 MCHC 30.9 L RDW 15.9 H Plt Count 214 MPV 10.9 H Sodium 141 Potassium 3.9 Chloride 99 Carbon Dioxide 30 Anion Gap 12 BUN 35 H D Creatinine 5.68 H Estim Creat Clear Calc 13 Estimated GFR 9 L Glucose 39 L* POC Capillary Glucose 139 H 94 Calcium 8.4 Magnesium 2.4 H Total Bilirubin 0.4 AST 31 ALT 41 H Alkaline Phosphatase 247 H Total Protein 6.8 Albumin 3.7 Procalcitonin 2.8 01/31/25 01/31/25 06:41 07:04 WBC RBC Hgb Hct MCV MCH MCHC RDW Plt Count MPV Sodium Potassium Chloride Carbon Dioxide Anion Gap BUN Creatinine Estim Creat Clear Calc Estimated GFR Glucose POC Capillary Glucose 47 L* 178 H Calcium Magnesium Total Bilirubin AST ALT Alkaline Phosphatase Total Protein Albumin Procalcitonin Quality VTE Prophylaxis VTE prophylaxis: pharmacologic ordered (Heparin 5000 units subQ q.12 hours.)
[2025-01-31 09:41] LABS: Add Urine Microscopic? YES; Appearance Urine Clear (Clear); Glucose Urine UA 2+ mg/dL (Negative); Leukocyte Esterase Ur Negative LEU/UL (Negative); Need Manual Microscopic Reviewed; Nitrate Urine Negative (Negative); Non Pathogenic Casts 0-2; Specific Grav Ur 1.015 (1.001-1.035)
--- NOTE | 2025-01-31 09:53 | PC.NURSE ---
This patient, Lynette Bellamy, was received from IMU on 01/31/25 at 0953. Patient/family oriented to unit policies and routines
[2025-01-31] MEDS: INSULIN ASPART (*BKC) 100 UNITS/ML SUB-Q ×2 (12:55→21:02)
--- NOTE | 2025-01-31 13:11 | P.PNNP_ITS ---
Progress Note: A&P Assessment and Plan (1) End stage renal disease: Code(s): N18.6 - End stage renal disease Status: Chronic Assessment and Plan: * HD tomorrow * continue //Wednesday dialysis schedule while hospitalized * follow electrolytes, volume status, and clearance * outpatient dialysis clinic = [facility] in * primary ski molder = Dr. Odilon Tellez (2) DKA (diabetic ketoacidosis): Qualifiers: Diabetes mellitus complication detail: without coma Diabetes mellitus type: type 1 Qualified Code(s): E10.10 - Type 1 diabetes mellitus with ketoacidosis without coma Code(s): E11.10 - Type 2 diabetes mellitus with ketoacidosis without coma Status: Resolved Assessment and Plan: * as noted by evaluation in ER * recurrent and multiple ER visits/hospitalizations for this problems (usually gets most of her care at [facility] and more recently at [facility]) * s/p insulin gtt * transitioned to SQ insulin (3) Nausea & vomiting: Qualifiers: Vomiting type: unspecified Qualified Code(s): R11.2 - Nausea with vomiting, unspecified Code(s): R11.2 - Nausea with vomiting, unspecified Status: Acute Assessment and Plan: * chronic and long standing issue (per patient and review of records) * cyclic in nature * thought to be secondary to diabetic gastroparesis * s/p recent G-J-tube placement to ensure adequate/supplemental nutrition given this issue * vomiting better but still with intermittent nausea (4) Hyperkalemia: Code(s): E87.5 - Hyperkalemia Status: Acute Assessment and Plan: * resolved * as noted by admission labs and AM labs on 01/30 * corrected with dialysis * follow trend (5) Diabetic gastroparesis: Code(s): E11.43 - Type 2 diabetes mellitus with diabetic autonomic (poly)neuropathy; K31.84 - Gastroparesis Status: Acute Assessment and Plan: * known and long standing issue * likely precipiting factor for admission symptoms (6) Anemia: Code(s): D64.9 - Anemia, unspecified Status: Chronic Assessment and Plan: * due to ESRD * Epogen with HD * follow trend of H/H (7) Hypertension: Code(s): I10 - Essential (primary) hypertension Status: Chronic Assessment and Plan: * quite elevated on admission * better at this time * resumed on home medications * follow trend of hemodynamics (8) Type 1 diabetes: Qualifiers: Diabetes mellitus complication status: with hyperglycemia Qualified Code(s): E10.65 - Type 1 diabetes mellitus with hyperglycemia Code(s): E10.9 - Type 1 diabetes mellitus without complications Status: Chronic Assessment and Plan: * follow accu-chek * transitioned to SQ insulin (SSI and Lantus) * glycemic control per hospitalist Will continue to follow. L Subjective Date/time seen: 01/31/25 13:11 Interval history: Follow-up for end stage renal disease on hemodialysis. Tolerated dialysis treatment yesterday without any issue or problems; issues with hypoglycemia yesterday/overnight/earlier today requiring IV dextrose administration; some mild nausea but no vomiting; transferred out of ICU earlier today since off insulin gtt; no apparent distress noted at the time of my visit. Exam 2 Narrative: General: WD/WN female in NAD Heart: normal S1 and S2; no rub Lungs: clear to auscultation Abdomen: soft, nontender, nondistended, positive bowel sounds Extremities: no cyanosis or clubbing; no edema Skin: warm and dry Objective Data Vital Signs Vital Signs: Vital Signs Temp Pulse Resp BP Pulse Ox O2 Del Method 01/31/25 12:00 90 01/31/25 10:15 97.6 F 85 16 145/75 H 100 01/31/25 08:19 90 01/31/25 08:00 88 01/31/25 08:00 98.2 F 91 19 171/88 H 98 01/31/25 04:00 80 01/31/25 00:00 80 01/31/25 00:00 98.8 F 79 13 131/77 92 01/30/25 21:08 97 01/30/25 20:00 99 01/30/25 20:00 Room Air 01/30/25 17:53 97 Room Air 01/30/25 16:00 98.3 F 84 15 109/51 L Intake/Output Intake/Output: Intake & Output 01/28/25 01/29/25 01/30/25 01/31/25 23:59 23:59 23:59 23:59 Intake Total 37.7 173.7 542 Output Total 300 450 50 Balance -262.3 -276.3 492 Meds/Results Medications: Active Medications Generic Name Dose Route Start Last Admin Trade Name Freq PRN Reason Stop Dose Admin Acetaminophen 650 mg 01/29/25 20:44 Acetaminophen 325 Mg Tablet PO Q4H PRN Mild Pain (1-3) or Fever Amlodipine Besylate 10 mg 01/30/25 09:00 01/31/25 08:20 Amlodipine Besylate 10 Mg Tablet PO 10 mg DAILY JAYME Administration Carvedilol 12.5 mg 01/30/25 09:00 01/31/25 08:19 Carvedilol 12.5 Mg Tablet PO 12.5 mg Q12H JAYME Administration Dextrose 12.5 gm 01/30/25 14:22 01/31/25 06:45 Dextrose 50% 25 Gm/50 Ml Syringe IV PUSH 12.5 gm PRN PRN Administration Hypoglycemia Protocol Diazepam 5 mg 01/29/25 22:29 01/31/25 00:48 Diazepam Inj (*Crx) 10 Mg/2 Ml Syringe IV PUSH 5 mg Q6H PRN Administration Intractable nausea vomiting Diphenhydramine HCl 50 mg 01/29/25 22:10 01/31/25 11:42 Diphenhydramine Hcl Inj 50 Mg/Ml Vial IV PUSH 50 mg Q4H PRN Administration Itching Escitalopram Oxalate 10 mg 01/30/25 09:00 01/31/25 08:20 Escitalopram Oxalate 10 Mg Tablet PO 10 mg DAILY JAYME Administration Gabapentin 100 mg 01/30/25 09:00 01/31/25 11:42 Gabapentin 100 Mg Capsule PO 100 mg TID JAYME Administration Glucagon 1 mg 01/30/25 14:22 Glucagon For Inj 1 Mg Vial IM PRN PRN Hypoglycemia Protocol Glucose 15 gm 01/30/25 14:22 Glucose Oral Gel 15 Gm Of Glucse In 37.5 Gm Tube PO PRN PRN Hypoglycemia Protocol Heparin Sodium (Beef Lung) 50 units 01/31/25 09:00 01/31/25 08:21 Heparin Flush 50 Units/5 Ml Syringe IV PUSH 50 units QAM JAYME Administration Heparin Sodium (Beef Lung) 50 units 01/30/25 10:15 Heparin Flush 50 Units/5 Ml Syringe IV PUSH PRN PRN after intermittent infusion Heparin Sodium (Beef Lung) 50 units 01/30/25 10:15 Heparin Flush 50 Units/5 Ml Syringe IV PUSH PRN PRN after blood draws Heparin Sodium (Porcine) 5,000 units 01/30/25 09:00 01/31/25 08:21 Heparin Sodium 5,000 Units/Ml Vial SUB-Q Not Given Q12HR JAYME Heparin Sodium (Porcine) 500 units 01/30/25 10:15 Heparin Sodium Lock Flush 500 Units/5 Ml Syringe IV PUSH PRN PRN see comments below Hydromorphone HCl 0.5 mg 01/30/25 11:31 01/31/25 12:55 Hydromorphone Hcl Inj (*Crx) 1 Mg/Ml Syr IV PUSH 0.5 mg Q2H PRN Administration Pain Rated 7-10 Albumin Human 50 mls @ 999 mls/hr 01/30/25 05:27 Albutein IVPB 03/01/25 05:26 Q10M PRN HYPOTENSION Dextrose 1,000 mls @ 100 mls/hr 01/30/25 14:22 Dextrose 5% 1,000 Ml IVPB PRN PRN Hypoglycemia Protocol Insulin Aspart 4 - 8 units 01/31/25 13:00 01/31/25 12:55 Insulin Aspart (*Bkc) 100 Units/Ml SUB-Q 4 units ACHS JAYME Administration Protocol Insulin Glargine 20 units 01/30/25 21:00 01/30/25 15:39 Insulin Glargine (*Bkc) 100 Units/Ml SUB-Q 20 units HS JAYME Administration Isosorbide Mononitrate 30 mg 01/30/25 09:00 01/31/25 08:19 Isosorbide Mononitrate 30 Mg Tab.Er.24h PO 30 mg QAM JAYME Administration Losartan Potassium 25 mg 01/30/25 09:00 01/31/25 08:20 Losartan Potassium 25 Mg Tablet PO 25 mg DAILY JAYME Administration Ondansetron HCl 4 mg 01/30/25 18:35 Ondansetron Inj 4 Mg/2 Ml Vial IV PUSH Q4H PRN Nausea And Vomiting Pantoprazole Sodium 40 mg 01/30/25 09:00 01/31/25 08:20 Pantoprazole Sodium Iv 40 Mg Vial IV PUSH 40 mg Q12HR JAYME Administration Sodium Chloride 10 ml 01/30/25 14:00 01/31/25 11:42 Central Line Flush IV PUSH 10 ml Q8HR JAYME Administration Radiology Results: ITS Impressions Chest X-Ray 01/29/25 15:40 Impression: No acute cardiopulmonary abnormality. Labs Labs: Laboratory Tests 01/31/25 04:39 01/31/25 04:39 Calcium 8.4 Magnesium 2.4 H Total Bilirubin 0.4 AST 31 ALT 41 H Alkaline Phosphatase 247 H Total Protein 6.8 Albumin 3.7 Procalcitonin 2.8
[2025-01-31] MEDS: INSULIN GLARGINE (*BKC) 100 UNITS/ML 20 UNITS SUB-Q (21:02)
[2025-01-31 21:19] LABS: Glucose 670 mg/dL (65-110)
[2025-01-31 21:52] LABS: Anion Gap 17 mmol/L (4-12); Blood Urea Nitrogen 43 mg/dL (7-17); Calcium 7.8 mg/dL (8.4-10.2); Carbon Dioxide 22 mmol/L (22-30); Chloride 95 mmol/L (98-107); Estimated CRCL calculation 12 ml/min; Estimated Glomerular Filt Rate 8; Potassium 4.6 mmol/L (3.4-5.0); Sodium 134 mmol/L (137-145)
[2025-02-01] VITALS (27 sets, daily range): BP systolic 175–212; BP diastolic 88–117; PULSE 82–99; RESP 14–18; TEMP 36.2–37; O2SAT 90–100; BMI 27.1
[2025-02-01] MEDS: HYDROmorphone HCL INJ (*CRX) 1 MG/ML SYR 0.5 MG IV PUSH ×9 (00:17→22:27)
[2025-02-01] MEDS: INSULIN ASPART (*BKC) 100 UNITS/ML SUB-Q ×2 (00:47→18:43)
--- NOTE | 2025-02-01 00:53 | P.PNCROSS_ITS ---
Event Note Event Note Event Note: This is a 29-year-old female patient with diabetes type 1. She also is end-sta ge renal disease and is on hemodialysis. Her blood sugars have been 500-600 today and she has a anion gap of 17. She was given long-acting and short-acting insulin and her blood sugar remains in the 500s. I have a call out to the shredding machine operator Dr. Gonzalez Repeat blood sugars were in the 200s. The patient stated that she does not want to go back to ICU. Her tube feedings are on hold at this time. 0700 blood sugars are now low and i spoke with her, she stated that she did not want to move to another floor, she declined d5 iv fluids and she declined to have her tube feeding restarted. she stated that she would try to eat this am. tube feeding is on hold at this time as well as lantus
[2025-02-01 01:33] LABS: Alveolar/Arterial O2 Gradient 37.8 mmHg; Fractional Inspired Oxygen 21 %; HCO3 ABG 27.3 mEq/l (22.0-26.0); Oxygen Content ABG 12.0 %vol (16.0-22.0); Oxygen Saturation ABG 87.9 % (95.0-100.0); PCO2 ABG 47.4 mmHg (35.0-45.0); PO2 ABG 55.2 mmHg (80.0-100.0); PO2 FiO2 Ratio Arterial Blood 2.63 %
[2025-02-01 01:42] LABS: Modified Allen's Test Pass; Site Drawn RIGHT RADIAL
[2025-02-01] MEDS: DEXTROSE 50% 25 GM/50 ML SYRINGE IV PUSH ×2 (04:39→07:01)
[2025-02-01] MEDS: diazePAM INJ (*CRX) 10 MG/2 ML SYRINGE 5 MG IV PUSH (04:48)
[2025-02-01 04:51] LABS: Hematocrit 28.0 % (37.0-47.0); Hemoglobin 8.7 g/dL (12.0-15.0); Mean Corpuscular HGB Conc 31.1 g/dl (32-36); Mean Corpuscular Hemoglobin 28.3 pg (26-34); Mean Corpuscular Volume 91.2 fl (80-100); Platelet Count Result 184 k/mm3 (150-375); Red Blood Count 3.07 M/mm3 (4.2-5.4); White Blood Count 5.7 K/mm3 (4.5-10.0)
[2025-02-01] MEDS: CENTRAL LINE FLUSH 10 ML IV PUSH ×3 (04:54→21:05)
[2025-02-01 05:24] LABS: Alanine Aminotransferase 45 U/L (6-35); Albumin Level 3.9 g/dL (3.5-5.1); Alkaline Phosphatase 268 U/L (38-126); Anion Gap 12 mmol/L (4-12); Aspartate Amino Transferase 29 U/L (14-36); Bilirubin,Total 0.4 mg/dL (0.2-1.3); Blood Urea Nitrogen 49 mg/dL (7-17); Calcium 8.4 mg/dL (8.4-10.2); Carbon Dioxide 28 mmol/L (22-30); Chloride 97 mmol/L (98-107); Estimated CRCL calculation 11 ml/min; Estimated Glomerular Filt Rate 7; Glucose 63 mg/dL (65-110); Magnesium 2.3 mg/dL (1.6-2.3); Potassium 4.2 mmol/L (3.4-5.0); Sodium 137 mmol/L (137-145); Total Protein 7.3 g/dL (6.3-8.2)
[2025-02-01] MEDS: PANTOPRAZOLE SODIUM IV 40 MG VIAL IV PUSH ×2 (08:33→21:06)
--- NOTE | 2025-02-01 10:20 | P.PNNP_ITS ---
Progress Note: A&P Assessment and Plan (1) End stage renal disease: Code(s): N18.6 - End stage renal disease Status: Chronic Assessment and Plan: * HD today * continue //Wednesday dialysis schedule while hospitalized * follow electrolytes, volume status, and clearance * outpatient dialysis clinic = [facility] in * primary lens blank gauger = Dr. Odilon Tellez (2) DKA (diabetic ketoacidosis): Qualifiers: Diabetes mellitus complication detail: without coma Diabetes mellitus type: type 1 Qualified Code(s): E10.10 - Type 1 diabetes mellitus with ketoacidosis without coma Code(s): E11.10 - Type 2 diabetes mellitus with ketoacidosis without coma Status: Resolved Assessment and Plan: * resolved * as noted by evaluation in ER * recurrent and multiple ER visits/hospitalizations for this problems (usually gets most of her care at [facility] and more recently at [facility]) * s/p insulin gtt and weaned off * transitioned to SQ insulin (3) Nausea & vomiting: Qualifiers: Vomiting type: unspecified Qualified Code(s): R11.2 - Nausea with vomiting, unspecified Code(s): R11.2 - Nausea with vomiting, unspecified Status: Acute Assessment and Plan: * chronic and long standing issue (per patient and review of records) * cyclic in nature * thought to be secondary to diabetic gastroparesis * s/p recent G-J-tube placement to ensure adequate/supplemental nutrition given this issue * continue oral intake and supplement tube feeds as needed (4) Hyperkalemia: Code(s): E87.5 - Hyperkalemia Status: Acute Assessment and Plan: * resolved * as noted by admission labs and AM labs on 01/30 * corrected with dialysis * follow trend (5) Diabetic gastroparesis: Code(s): E11.43 - Type 2 diabetes mellitus with diabetic autonomic (poly)neuropathy; K31.84 - Gastroparesis Status: Acute Assessment and Plan: * known and long standing issue * likely precipiting factor for admission symptoms (6) Anemia: Code(s): D64.9 - Anemia, unspecified Status: Chronic Assessment and Plan: * due to ESRD * Epogen with HD * follow trend of H/H (7) Hypertension: Code(s): I10 - Essential (primary) hypertension Status: Chronic Assessment and Plan: * quite elevated on admission * high this AM (BP medications not given in anticipation of dialysis today) * on home medications * follow trend of hemodynamics (8) Type 1 diabetes: Qualifiers: Diabetes mellitus complication status: with hyperglycemia Qualified Code(s): E10.65 - Type 1 diabetes mellitus with hyperglycemia Code(s): E10.9 - Type 1 diabetes mellitus without complications Status: Chronic Assessment and Plan: * follow accu-chek * transitioned to SQ insulin (SSI and Lantus) * glycemic control per hospitalist Will continue to follow. L Subjective Date/time seen: 02/01/25 10:20 Interval history: Follow-up for end stage renal disease on hemodialysis. Tolerating dialysis treatment at the time of my visit (seen on HD at 10:10am); no acute distress noted when seen; issues with erratic blood sugars noted overnight/earlier this morning; BP quite elevated as well but is getting ultrafiltration with dialysis today; no othe acute complaints when seen. Exam 2 Narrative: General: WD/WN female in NAD Heart: normal S1 and S2; no rub Lungs: decreased at bases Abdomen: soft, nontender, nondistended, positive bowel sounds Extremities: no cyanosis or clubbing; no edema Skin: warm and intact Objective Data Vital Signs Vital Signs: Vital Signs Temp Pulse Resp BP Pulse Ox O2 Del Method O2 Flow Rate 02/01/25 10:15 83 194/101 H 02/01/25 10:00 86 199/111 H 02/01/25 09:45 88 199/105 H 02/01/25 09:30 86 212/110 H 02/01/25 09:15 85 186/103 H 02/01/25 08:56 84 179/99 H 02/01/25 08:45 2 02/01/25 08:45 97.5 F L 85 18 188/102 H 95 02/01/25 08:00 82 02/01/25 08:00 98 Nasal Cannula 2 02/01/25 06:04 97.8 F 96 18 180/93 H 100 02/01/25 04:00 88 02/01/25 01:40 90 Nasal Cannula 2 02/01/25 00:00 97 02/01/25 00:00 97.7 F 92 18 175/88 H 95 01/31/25 20:06 91 01/31/25 20:00 98 01/31/25 20:00 92 18 95 Room Air 01/31/25 16:00 97.6 F 91 17 141/75 H 95 01/31/25 16:00 87 01/31/25 12:00 90 Intake/Output Intake/Output: Intake & Output 01/29/25 01/30/25 01/31/25 02/01/25 23:59 23:59 23:59 23:59 Intake Total 37.7 173.7 1022 Output Total 300 450 50 Balance -262.3 -276.3 972 Meds/Results Medications: Active Medications Generic Name Dose Route Start Last Admin Trade Name Freq PRN Reason Stop Dose Admin Acetaminophen 650 mg 01/29/25 20:44 Acetaminophen 325 Mg Tablet PO Q4H PRN Mild Pain (1-3) or Fever Amlodipine Besylate 10 mg 01/30/25 09:00 02/01/25 10:03 Amlodipine Besylate 10 Mg Tablet PO Not Given DAILY JAYME Carvedilol 12.5 mg 01/30/25 09:00 02/01/25 10:03 Carvedilol 12.5 Mg Tablet PO Not Given Q12H JAYME Dextrose 12.5 gm 01/30/25 14:22 02/01/25 04:39 Dextrose 50% 25 Gm/50 Ml Syringe IV PUSH 12.5 gm PRN PRN Administration Hypoglycemia Protocol Diazepam 5 mg 01/29/25 22:29 02/01/25 04:48 Diazepam Inj (*Crx) 10 Mg/2 Ml Syringe IV PUSH 5 mg Q6H PRN Administration Intractable nausea vomiting Diphenhydramine HCl 50 mg 01/29/25 22:10 02/01/25 08:33 Diphenhydramine Hcl Inj 50 Mg/Ml Vial IV PUSH 50 mg Q4H PRN Administration Itching Epoetin Live-epbx 10,000 units 02/01/25 18:06 Epoetin Live-Epbx 10,000 Units/Ml Vial IV PUSH 02/01/25 18:07 ONCE ONE Escitalopram Oxalate 10 mg 01/30/25 09:00 02/01/25 10:03 Escitalopram Oxalate 10 Mg Tablet PO Not Given DAILY JAYME Gabapentin 100 mg 01/30/25 09:00 02/01/25 10:03 Gabapentin 100 Mg Capsule PO Not Given TID JAYME Glucagon 1 mg 01/30/25 14:22 Glucagon For Inj 1 Mg Vial IM PRN PRN Hypoglycemia Protocol Glucose 15 gm 01/30/25 14:22 Glucose Oral Gel 15 Gm Of Glucse In 37.5 Gm Tube PO PRN PRN Hypoglycemia Protocol Heparin Sodium (Beef Lung) 50 units 01/31/25 09:00 02/01/25 10:04 Heparin Flush 50 Units/5 Ml Syringe IV PUSH Not Given QAM [facility] Heparin Sodium (Beef Lung) 50 units 01/30/25 10:15 Heparin Flush 50 Units/5 Ml Syringe IV PUSH PRN PRN after intermittent infusion Heparin Sodium (Beef Lung) 50 units 01/30/25 10:15 Heparin Flush 50 Units/5 Ml Syringe IV PUSH PRN PRN after blood draws Heparin Sodium (Porcine) 5,000 units 01/30/25 09:00 02/01/25 10:03 Heparin Sodium 5,000 Units/Ml Vial SUB-Q Not Given Q12HR [facility] Heparin Sodium (Porcine) 500 units 01/30/25 10:15 Heparin Sodium Lock Flush 500 Units/5 Ml Syringe IV PUSH PRN PRN see comments below Hydromorphone HCl 0.5 mg 01/30/25 11:31 02/01/25 06:59 Hydromorphone Hcl Inj (*Crx) 1 Mg/Ml Syr IV PUSH 0.5 mg Q2H PRN Administration Pain Rated 7-10 Albumin Human 50 mls @ 999 mls/hr 01/30/25 05:27 Albutein IVPB 03/01/25 05:26 Q10M PRN HYPOTENSION Dextrose 1,000 mls @ 100 mls/hr 01/30/25 14:22 Dextrose 5% 1,000 Ml IVPB PRN PRN Hypoglycemia Protocol Insulin Aspart 4 - 8 units 01/31/25 21:00 02/01/25 07:52 Insulin Aspart (*Bkc) 100 Units/Ml SUB-Q Not Given Q4H [facility] Protocol Insulin Glargine 20 units 01/30/25 21:00 01/31/25 21:02 Insulin Glargine (*Bkc) 100 Units/Ml SUB-Q 20 units HS JAYME Administration Isosorbide Mononitrate 30 mg 01/30/25 09:00 02/01/25 10:04 Isosorbide Mononitrate 30 Mg Tab.Er.24h PO Not Given QAM JAYME Losartan Potassium 25 mg 01/30/25 09:00 02/01/25 10:04 Losartan Potassium 25 Mg Tablet PO Not Given DAILY JAYME Ondansetron HCl 4 mg 01/30/25 18:35 Ondansetron Inj 4 Mg/2 Ml Vial IV PUSH Q4H PRN Nausea And Vomiting Pantoprazole Sodium 40 mg 01/30/25 09:00 02/01/25 08:33 Pantoprazole Sodium Iv 40 Mg Vial IV PUSH 40 mg Q12HR JAYME Administration Sodium Chloride 10 ml 01/30/25 14:00 02/01/25 04:54 Central Line Flush IV PUSH 10 ml Q8HR JAYME Administration Radiology Results: ITS Impressions Chest X-Ray 02/01/25 08:19 Impression: CHF Labs Labs: Laboratory Tests 02/01/25 04:32 02/01/25 04:32 Calcium 8.4 Magnesium 2.3 Total Bilirubin 0.4 AST 29 ALT 45 H Alkaline Phosphatase 268 H Total Protein 7.3 Albumin 3.9
[2025-02-01] MEDS: EPOETIN ALFA-EPBX 10,000 UNITS/ML VIAL 10000 UNITS IV PUSH (10:23)
[2025-02-01] MEDS: SODIUM CHLORIDE 0.9% IV 1,000 ML 999 ML IV CONT (10:24)
--- NOTE | 2025-02-01 10:42 | PCDIET ---
Nutrition consult for tube feeding rate adjustments. Spoke with patient, tube feedings at home reported of [place] at 6pm-10am. Total Nutrition: 1134 kcal/43 gm protein/458 ml water. Flush 100 ml q 4 hours. Providing 65% kcal needs at 25 kcal/kg and 61% protein needs at 1.0 kcal/kg. Patient is able to tolerate a regular diet. Breakfast reported eggs and schumacher. Currently in Dialysis. Ordnance Engineering Technician consult for insulin recommendations. Agree with diet orders at this time.
--- NOTE | 2025-02-01 12:30 | PC.NURSE ---
Patient returned to floor via bed from dialysis. AM meds given at this time. All needs met and no patient complaints at this time.
[2025-02-01] MEDS: LOSARTAN POTASSIUM 25 MG TABLET PO (12:31)
[2025-02-01] MEDS: GABAPENTIN 100 MG CAPSULE PO ×2 (12:31→16:51)
--- NOTE | 2025-02-01 14:56 | PM.IMPN ---
Progress Note: A&P Assessment and Plan (1) DKA, type 1: Qualifiers: Diabetes mellitus complication detail: without coma Qualified Code(s): E10.10 - Type 1 diabetes mellitus with ketoacidosis without coma Code(s): E10.10 - Type 1 diabetes mellitus with ketoacidosis without coma Status: Acute Assessment and Plan: Pt was not given given IVF due to ESRD Insulin infusion was started and Q1H glucose monitoring is being done. Currently off due to drop in blood sugars Anion gap has now closed and patient has been transition to subcutaneous insulin Her metabolic acidosis anion gap was complicated by history of end-stage renal disease. I will check labs after dialysis and will try to transition her to to subcutaneous insulin after dialysis (2) Nausea & vomiting: Qualifiers: Vomiting type: unspecified Qualified Code(s): R11.2 - Nausea with vomiting, unspecified Code(s): R11.2 - Nausea with vomiting, unspecified Status: Acute Assessment and Plan: History of chronic nausea vomiting. Currently feels better (3) End stage renal disease on dialysis: Code(s): N18.6 - End stage renal disease; Z99.2 - Dependence on renal dialysis Status: Acute Assessment and Plan: Patient was [id number] and will be dialyzed by Nephrology (4) SIRS (systemic inflammatory response syndrome): Code(s): R65.10 - Systemic inflammatory response syndrome (SIRS) of non-infectious origin without acute organ dysfunction Status: Acute Assessment and Plan: Findings suggestive of sirs likely from DKA although blood cultures have been sent and are pending. Procalcitonin level is 2.5 but patient is afebrile with normal WBC count. Hold any antibiotics and monitor this time UA is pending (5) Hypertension: Code(s): I10 - Essential (primary) hypertension Status: Chronic Assessment and Plan: Continue Coreg amlodipine Imdur and Cozaar (6) Type 1 diabetes: Qualifiers: Diabetes mellitus complication status: with hyperglycemia Qualified Code(s): E10.65 - Type 1 diabetes mellitus with hyperglycemia Code(s): E10.9 - Type 1 diabetes mellitus without complications Status: Chronic Assessment and Plan: Patient was started Lantus and sliding scale and on tube feeds. She had episode of hypoglycemia. I will increase the tube feed rate to 50 mL/hour. She takes 20 units of Lantus at home which will be continued but next dose will be tonight. Continue blood glucose monitoring I anticipate by increasing tube feeds she will not need dextrose infusion. She has not been eating much due to nausea. Plan 29 y/o female with Type I DM since age of 7, presented with DKA and was admitted in ICU, and was treated with IV insulin and fluids, patient blood sugars fluctuate, we have consulted boarder machine and dobby loom chain pegger help with insulin management, patient is clinically stable, had her dialysis today and was seen by dobby loom chain pegger, will follow her recommendation and patient is instructed to follow boarder machine recommendation avoid fast food. will monitor. DVT prophylaxis -heparin subQ Stress ulcer prophylaxis -protonix Nutrition -continue Tube Feeds Code Status - Full Code Subjective Date/time seen: 02/01/25 14:56 Interval history: Nausea vomiting for 3 days, left-sided chest pain for a couple of hours, ?I think I am in DKA again? H&P-Narrative: 29-year-old female with a past medical history of end-stage renal disease due to type 1 diabetes mellitus with complications including diabetic peripheral neuropathy and gastroparesis status post recent G-tube placement for decompression in J-tube placement for enteral feeds who presented to the ER with 3 days of nausea vomiting and couple of hours of left-sided chest pain. Patient reports that she has not been able to tolerate any tube feeds for the last 3 days. She has continued to give herself her home insulin but her glucoses have continued to climb. She reports that she did not have the appropriate supplies for her G-tube in was unable to aspirate air from her G button for the last 3 days. She has kept her drain bag in place in she did have a proximally 250 mL of drainage. She denied having any fevers or chills. She has been having more dry heaves. She reports that she has been taking her Lantus as directed and has been monitoring her glucoses with her CGM. She has been trying to take p.r.n. doses of insulin but her glucoses were still climbing. She reports that she has been and uric for over a year. She has been on dialysis for 1.5 years in goes to dialysis Wednesday. Her last dialysis session was on Wednesday she has not missed any dialysis. He she denies any hematemesis, coffee-ground emesis or melenic stools. She reports that her stools have been normal. She reports that she has been having some left lower chest pain that is been constant for the last 3 days. She denies any eliciting or relieving factors. Her most recent hemoglobin A1c is 8.4% on January 01, 2025 She reports that the only thing that ever helped with her nausea is Benadryl. She does not tolerate Reglan due to muscle spasms. She does have a history of QT prolongation on prior EKGs. Initial EKG on presentation to the ER demonstrated normal QT interval. Patient received Haldol and Benadryl in the ER. Repeat EKG demonstrated QT prolongation with QTC of 501. 29 y/o female with Type I DM since age of 7, presented with DKA and was admitted in ICU, and was treated with IV insulin and fluids, patient blood sugars fluctuate, we have consulted boarder machine and dobby loom chain pegger help with insulin management, patient is clinically stable, had her dialysis today and was seen by dobby loom chain pegger, will follow her recommendation and patient is instructed to follow boarder machine recommendation avoid fast food. will monitor. Review of Systems Review of Systems: All systems reviewed & are unremarkable except as noted in HPI and below (HPI) Exam Narrative: Patient is comfortable, NAD HEENT: eyes are clear and none icteric LUNGS:CTA HEART: RR S1S2 ABD: BS+, Soft and nontender Lower extremities: no edema SKIN: nonjaundiced Neuro: grossly intact. Objective Data Vital Signs Vital Signs: Vital Signs - 24 hr 01/31/25 16:00 01/31/25 16:00 01/31/25 20:00 Temperature 36.4 C Pulse Rate 87 91 92 Respiratory Rate 17 18 Blood Pressure 141/75 H Pulse Oximetry 95 95 Oxygen Delivery Room Air Oxygen Flow Rate Fraction of Inspired Oxygen 01/31/25 20:00 01/31/25 20:06 02/01/25 00:00 Temperature 36.5 C Pulse Rate 98 91 92 Respiratory Rate 18 Blood Pressure 175/88 H Pulse Oximetry 95 Oxygen Delivery Oxygen Flow Rate Fraction of Inspired Oxygen 02/01/25 00:00 02/01/25 01:40 02/01/25 04:00 Temperature Pulse Rate 97 88 Respiratory Rate Blood Pressure Pulse Oximetry 90 Oxygen Delivery Nasal Cannula Oxygen Flow Rate 2 Fraction of Inspired Oxygen 28 02/01/25 06:04 02/01/25 08:00 02/01/25 08:00 Temperature 36.6 C Pulse Rate 96 82 Respiratory Rate 18 Blood Pressure 180/93 H Pulse Oximetry 100 98 Oxygen Delivery Nasal Cannula Oxygen Flow Rate 2 Fraction of Inspired Oxygen 02/01/25 08:45 02/01/25 08:45 02/01/25 08:56 Temperature 36.4 C L Pulse Rate 85 84 Respiratory Rate 18 Blood Pressure 188/102 H 179/99 H Pulse Oximetry 95 Oxygen Delivery Oxygen Flow Rate 2 Fraction of Inspired Oxygen 02/01/25 09:15 02/01/25 09:30 02/01/25 09:45 Temperature Pulse Rate 85 86 88 Respiratory Rate Blood Pressure 186/103 H 212/110 H 199/105 H Pulse Oximetry Oxygen Delivery Oxygen Flow Rate Fraction of Inspired Oxygen 02/01/25 10:00 02/01/25 10:15 02/01/25 10:30 Temperature Pulse Rate 86 83 84 Respiratory Rate Blood Pressure 199/111 H 194/101 H 195/102 H Pulse Oximetry Oxygen Delivery Oxygen Flow Rate Fraction of Inspired Oxygen 02/01/25 10:45 02/01/25 11:00 02/01/25 11:15 Temperature Pulse Rate 84 85 86 Respiratory Rate Blood Pressure 190/110 H 193/108 H 200/108 H Pulse Oximetry Oxygen Delivery Oxygen Flow Rate Fraction of Inspired Oxygen 02/01/25 11:30 02/01/25 11:45 02/01/25 11:59 Temperature Pulse Rate 87 89 90 Respiratory Rate Blood Pressure 202/112 H 198/111 H 200/107 H Pulse Oximetry Oxygen Delivery Oxygen Flow Rate Fraction of Inspired Oxygen 02/01/25 12:00 02/01/25 12:08 Temperature 36.2 C L Pulse Rate 93 92 Respiratory Rate 18 Blood Pressure 207/117 H Pulse Oximetry 97 Oxygen Delivery Oxygen Flow Rate Fraction of Inspired Oxygen Intake/Output Intake/Output: Intake & Output 01/29/25 01/30/25 01/31/25 02/01/25 23:59 23:59 23:59 23:59 Intake Total 37.7 173.7 1022 240 Output Total 300 648 07 2381 Balance -262.3 -276.3 972 -1810 Meds/Results Medications: Active Medications Generic Name Dose Route Start Last Admin Trade Name Freq PRN Reason Stop Dose Admin Acetaminophen 650 mg 01/29/25 20:44 Acetaminophen 325 Mg Tablet PO Q4H PRN Mild Pain (1-3) or Fever Amlodipine Besylate 10 mg 01/30/25 09:00 02/01/25 12:31 Amlodipine Besylate 10 Mg Tablet PO 10 mg DAILY JAYME Administration Carvedilol 12.5 mg 01/30/25 09:00 02/01/25 10:03 Carvedilol 12.5 Mg Tablet PO Not Given Q12H JAYME Dextrose 12.5 gm 01/30/25 14:22 02/01/25 04:39 Dextrose 50% 25 Gm/50 Ml Syringe IV PUSH 12.5 gm PRN PRN Administration Hypoglycemia Protocol Diazepam 5 mg 01/29/25 22:29 02/01/25 04:48 Diazepam Inj (*Crx) 10 Mg/2 Ml Syringe IV PUSH 5 mg Q6H PRN Administration Intractable nausea vomiting Diphenhydramine HCl 50 mg 01/29/25 22:10 02/01/25 12:31 Diphenhydramine Hcl Inj 50 Mg/Ml Vial IV PUSH 50 mg Q4H PRN Administration Itching Epoetin Live-epbx 10,000 units 02/01/25 18:06 02/01/25 10:23 Epoetin Live-Epbx 10,000 Units/Ml Vial IV PUSH 02/01/25 18:07 10,000 units ONCE ONE Administration Escitalopram Oxalate 10 mg 01/30/25 09:00 02/01/25 10:03 Escitalopram Oxalate 10 Mg Tablet PO Not Given DAILY JAYME Gabapentin 100 mg 01/30/25 09:00 02/01/25 12:31 Gabapentin 100 Mg Capsule PO 100 mg TID JAYME Administration Glucagon 1 mg 01/30/25 14:22 Glucagon For Inj 1 Mg Vial IM PRN PRN Hypoglycemia Protocol Glucose 15 gm 01/30/25 14:22 Glucose Oral Gel 15 Gm Of Glucse In 37.5 Gm Tube PO PRN PRN Hypoglycemia Protocol Heparin Sodium (Beef Lung) 50 units 01/31/25 09:00 02/01/25 10:04 Heparin Flush 50 Units/5 Ml Syringe IV PUSH Not Given QAM JAYME Heparin Sodium (Beef Lung) 50 units 01/30/25 10:15 Heparin Flush 50 Units/5 Ml Syringe IV PUSH PRN PRN after intermittent infusion Heparin Sodium (Beef Lung) 50 units 01/30/25 10:15 Heparin Flush 50 Units/5 Ml Syringe IV PUSH PRN PRN after blood draws Heparin Sodium (Porcine) 5,000 units 01/30/25 09:00 02/01/25 10:03 Heparin Sodium 5,000 Units/Ml Vial SUB-Q Not Given Q12HR JAYME Heparin Sodium (Porcine) 500 units 01/30/25 10:15 Heparin Sodium Lock Flush 500 Units/5 Ml Syringe IV PUSH PRN PRN see comments below Hydromorphone HCl 0.5 mg 01/30/25 11:31 02/01/25 14:39 Hydromorphone Hcl Inj (*Crx) 1 Mg/Ml Syr IV PUSH 0.5 mg Q2H PRN Administration Pain Rated 7-10 Albumin Human 50 mls @ 999 mls/hr 01/30/25 05:27 Albutein IVPB 03/01/25 05:26 Q10M PRN HYPOTENSION Dextrose 1,000 mls @ 100 mls/hr 01/30/25 14:22 Dextrose 5% 1,000 Ml IVPB PRN PRN Hypoglycemia Protocol Insulin Aspart 4 - 8 units 01/31/25 21:00 02/01/25 12:18 Insulin Aspart (*Bkc) 100 Units/Ml SUB-Q Not Given Q4H [facility] Protocol Insulin Glargine 20 units 01/30/25 21:00 01/31/25 21:02 Insulin Glargine (*Bkc) 100 Units/Ml SUB-Q 20 units HS JAYME Administration Isosorbide Mononitrate 30 mg 01/30/25 09:00 02/01/25 10:04 Isosorbide Mononitrate 30 Mg Tab.Er.24h PO Not Given QAM JAYME Losartan Potassium 25 mg 01/30/25 09:00 02/01/25 12:31 Losartan Potassium 25 Mg Tablet PO 25 mg DAILY JAYME Administration Ondansetron HCl 4 mg 01/30/25 18:35 Ondansetron Inj 4 Mg/2 Ml Vial IV PUSH Q4H PRN Nausea And Vomiting Pantoprazole Sodium 40 mg 01/30/25 09:00 02/01/25 08:33 Pantoprazole Sodium Iv 40 Mg Vial IV PUSH 40 mg Q12HR JAYME Administration Sodium Chloride 10 ml 01/30/25 14:00 02/01/25 12:32 Central Line Flush IV PUSH 10 ml Q8HR JAYME Administration Radiology Results: ITS Impressions Chest X-Ray 02/01/25 08:19 Impression: CHF Labs Labs: Laboratory Results - last 24 hr 01/31/25 01/31/25 01/31/25 16:21 20:05 20:39 WBC RBC Hgb Hct MCV MCH MCHC RDW Plt Count MPV Puncture Site ABG pH ABG pCO2 ABG pO2 ABG PO2/FiO2 Ratio ABG HCO3 ABG O2 Saturation ABG O2 Content ABG Base Excess A-a Gradient Oxyhemoglobin Total Hemoglobin O2 Delivery Device O2 Liters/Min FiO2 Sodium 134 L Potassium 4.6 Chloride 95 L Carbon Dioxide 22 Anion Gap 17 H BUN 43 H Creatinine 6.23 H Estim Creat Clear Calc 12 Estimated GFR 8 L Glucose 670 H* POC Capillary Glucose 182 H > 500 H* Calcium 7.8 L Magnesium Total Bilirubin AST ALT Alkaline Phosphatase Total Protein Albumin 02/01/25 02/01/25 02/01/25 00:28 01:29 02:15 WBC RBC Hgb Hct MCV MCH MCHC RDW Plt Count MPV Puncture Site Right radial ABG pH 7.379 ABG pCO2 47.4 H ABG pO2 55.2 L ABG PO2/FiO2 Ratio 2.63 ABG HCO3 27.3 H ABG O2 Saturation 87.9 L ABG O2 Content 12.0 L ABG Base Excess 1.8 A-a Gradient 37.8 Oxyhemoglobin 87.8 L* Total Hemoglobin 9.7 L O2 Delivery Device Room air O2 Liters/Min Not Reportable FiO2 21 Sodium Potassium Chloride Carbon Dioxide Anion Gap BUN Creatinine Estim Creat Clear Calc Estimated GFR Glucose POC Capillary Glucose > 500 H* 276 H Calcium Magnesium Total Bilirubin AST ALT Alkaline Phosphatase Total Protein Albumin 02/01/25 02/01/25 02/01/25 04:07 04:30 04:32 WBC 5.7 RBC 3.07 L Hgb 8.7 L Hct 28.0 L MCV 91.2 MCH 28.3 MCHC 31.1 L RDW 15.6 H Plt Count 184 MPV 9.8 Puncture Site ABG pH ABG pCO2 ABG pO2 ABG PO2/FiO2 Ratio ABG HCO3 ABG O2 Saturation ABG O2 Content ABG Base Excess A-a Gradient Oxyhemoglobin Total Hemoglobin O2 Delivery Device O2 Liters/Min FiO2 Sodium 137 Potassium 4.2 Chloride 97 L Carbon Dioxide 28 Anion Gap 12 BUN 49 H Creatinine 6.85 H Estim Creat Clear Calc 11 Estimated GFR 7 L Glucose 63 L POC Capillary Glucose 60 L 71 Calcium 8.4 Magnesium 2.3 Total Bilirubin 0.4 AST 29 ALT 45 H Alkaline Phosphatase 268 H Total Protein 7.3 Albumin 3.9 02/01/25 02/01/25 02/01/25 05:05 06:46 07:28 WBC RBC Hgb Hct MCV MCH MCHC RDW Plt Count MPV Puncture Site ABG pH ABG pCO2 ABG pO2 ABG PO2/FiO2 Ratio ABG HCO3 ABG O2 Saturation ABG O2 Content ABG Base Excess A-a Gradient Oxyhemoglobin Total Hemoglobin O2 Delivery Device O2 Liters/Min FiO2 Sodium Potassium Chloride Carbon Dioxide Anion Gap BUN Creatinine Estim Creat Clear Calc Estimated GFR Glucose POC Capillary Glucose 105 66 150 H Calcium Magnesium Total Bilirubin AST ALT Alkaline Phosphatase Total Protein Albumin 02/01/25 11:52 WBC RBC Hgb Hct MCV MCH MCHC RDW Plt Count MPV Puncture Site ABG pH ABG pCO2 ABG pO2 ABG PO2/FiO2 Ratio ABG HCO3 ABG O2 Saturation ABG O2 Content ABG Base Excess A-a Gradient Oxyhemoglobin Total Hemoglobin O2 Delivery Device O2 Liters/Min FiO2 Sodium Potassium Chloride Carbon Dioxide Anion Gap BUN Creatinine Estim Creat Clear Calc Estimated GFR Glucose POC Capillary Glucose 121 H Calcium Magnesium Total Bilirubin AST ALT Alkaline Phosphatase Total Protein Albumin Quality VTE Prophylaxis VTE prophylaxis: pharmacologic ordered (Heparin 5000 units subQ q.12 hours.)
[2025-02-01] MEDS: INSULIN GLARGINE (*BKC) 100 UNITS/ML 9 UNITS SUB-Q (21:02)
[2025-02-02] VITALS (11 sets, daily range): BP systolic 148–170; BP diastolic 79–95; PULSE 84–95; RESP 14–18; TEMP 36.2–36.5; O2SAT 92–100; BMI 26.3
[2025-02-02] MEDS: INSULIN ASPART (*BKC) 100 UNITS/ML SUB-Q ×5 (00:05→23:43)
[2025-02-02] MEDS: HYDROmorphone HCL INJ (*CRX) 1 MG/ML SYR 0.5 MG IV PUSH ×8 (01:12→23:38)
[2025-02-02 05:42] LABS: Hematocrit 31.8 % (37.0-47.0); Hemoglobin 9.7 g/dL (12.0-15.0); Mean Corpuscular HGB Conc 30.5 g/dl (32-36); Mean Corpuscular Hemoglobin 28.3 pg (26-34); Mean Corpuscular Volume 92.7 fl (80-100); Platelet Count Result 195 k/mm3 (150-375); Red Blood Count 3.43 M/mm3 (4.2-5.4); White Blood Count 5.5 K/mm3 (4.5-10.0)
[2025-02-02 06:09] LABS: Alanine Aminotransferase 37 U/L (6-35); Albumin Level 3.8 g/dL (3.5-5.1); Alkaline Phosphatase 279 U/L (38-126); Anion Gap 7 mmol/L (4-12); Aspartate Amino Transferase 25 U/L (14-36); Bilirubin,Total 0.4 mg/dL (0.2-1.3); Blood Urea Nitrogen 29 mg/dL (7-17); Calcium 8.3 mg/dL (8.4-10.2); Carbon Dioxide 34 mmol/L (22-30); Chloride 98 mmol/L (98-107); Estimated CRCL calculation 16 ml/min; Estimated Glomerular Filt Rate 11; Glucose 178 mg/dL (65-110); Magnesium 2.1 mg/dL (1.6-2.3); Potassium 3.9 mmol/L (3.4-5.0); Sodium 139 mmol/L (137-145); Total Protein 7.2 g/dL (6.3-8.2)
[2025-02-02] MEDS: CENTRAL LINE FLUSH 10 ML IV PUSH ×3 (06:14→20:59)
[2025-02-02] MEDS: GABAPENTIN 100 MG CAPSULE FEED TUBE ×3 (09:40→17:19)
[2025-02-02] MEDS: LOSARTAN POTASSIUM 25 MG TABLET FEED TUBE (09:41)
[2025-02-02] MEDS: PANTOPRAZOLE SODIUM IV 40 MG VIAL IV PUSH ×2 (09:42→20:59)
[2025-02-02] MEDS: ESCITALOPRAM OXALATE 10 MG TABLET FEED TUBE (09:42)
--- NOTE | 2025-02-02 10:27 | PCNFU ---
Nutrition Follow-Up Complete: Inadequate oral intake related to altered GI function as evidenced by need for full tube feeds Goal: Meet estimated nutrition needs Patient is progressing towards goal. We will continue current goal. Pt current nutrition is Regular diet with Nepro at 45 ml/hr. Last recorded weight is 69.6 kg, down from 70 kg on admit. Bowel Motility: Last reported BM 01/31 Labs Reviewed: Glu 178, BUN 29, Cr 4.53 Meds Noted: Lantus, Heparin, NovoLog, Lexapro, Zofran. Skin: WNL Additional Notes: Patient remains on a regular diet. Tube feedings are being tolerated of Nepro at 6pm-10am and providing 1134 kcal/43 gm protein/453 ml water. Meeting 65% kcal needs at 25 kcal/kg and 61% protein needs at 1.0 kcal/kg. Some nausea reported this morning, nursing giving nausea meds. Agree with diet orders. Monitoring tube feeding tolerance, labs, weights, meds, output, plan of care Follow up Wednesday/Wednesday.
--- NOTE | 2025-02-02 11:22 | P.PNNP_ITS ---
Progress Note: A&P Assessment and Plan (1) End stage renal disease: Code(s): N18.6 - End stage renal disease Status: Chronic Assessment and Plan: * HD tomorrow * continue //Wednesday dialysis schedule while hospitalized * follow electrolytes, volume status, and clearance * outpatient dialysis clinic = [facility] in * primary chronometer assembler = Dr. Odilon Tellez (2) DKA (diabetic ketoacidosis): Qualifiers: Diabetes mellitus complication detail: without coma Diabetes mellitus type: type 1 Qualified Code(s): E10.10 - Type 1 diabetes mellitus with ketoacidosis without coma Code(s): E11.10 - Type 2 diabetes mellitus with ketoacidosis without coma Status: Resolved Assessment and Plan: * resolved * as noted by evaluation in ER * recurrent and multiple ER visits/hospitalizations for this problems (usually gets most of her care at [facility] and more recently at [facility]) * s/p insulin gtt and weaned off * transitioned to SQ insulin (3) Nausea & vomiting: Qualifiers: Vomiting type: unspecified Qualified Code(s): R11.2 - Nausea with vomiting, unspecified Code(s): R11.2 - Nausea with vomiting, unspecified Status: Acute Assessment and Plan: * chronic and long standing issue (per patient and review of records) * cyclic in nature * thought to be secondary to diabetic gastroparesis * s/p recent G-J-tube placement to ensure adequate/supplemental nutrition given this issue * continue oral intake and supplement tube feeds as needed (4) Hyperkalemia: Code(s): E87.5 - Hyperkalemia Status: Acute Assessment and Plan: * resolved * as noted by admission labs and AM labs on 01/30 * corrected with dialysis * follow trend (5) Diabetic gastroparesis: Code(s): E11.43 - Type 2 diabetes mellitus with diabetic autonomic (poly)neuropathy; K31.84 - Gastroparesis Status: Acute Assessment and Plan: * known and long standing issue * likely precipiting factor for admission symptoms (6) Anemia: Code(s): D64.9 - Anemia, unspecified Status: Chronic Assessment and Plan: * due to ESRD * Epogen with HD * follow trend of H/H (7) Hypertension: Code(s): I10 - Essential (primary) hypertension Status: Chronic Assessment and Plan: * quite elevated on admission * high this AM (BP medications not given in anticipation of dialysis today) * on home medications * follow trend of hemodynamics (8) Type 1 diabetes: Qualifiers: Diabetes mellitus complication status: with hyperglycemia Qualified Code(s): E10.65 - Type 1 diabetes mellitus with hyperglycemia Code(s): E10.9 - Type 1 diabetes mellitus without complications Status: Chronic Assessment and Plan: * follow accu-chek * transitioned to SQ insulin (SSI and Lantus) * glycemic control per hospitalist As mentioned on initial consultation, she was usually getting all of her care at [facility] in [place] prior to her recent hospitalizations here at [facility] since December 2024 -- review of records from [facility] mention the concern for drug seeking behavior due to her insistence of the use of IV bendaryl and IV dilaudid for symptom control related to her nausea/vomiting and abdominal pain issues, respectively. As a result, these medication administrations have been limited/reduced when she last presented to [facility] ER (for DKA as well) and seemingly resulting in her leaving AMA. Will continue to follow. L Subjective Date/time seen: 02/02/25 11:22 Interval history: Follow-up for end stage renal disease on hemodialysis. Tolerated dialysis treatment yesterday without any issues or problems; no apparent distress voiced at the time of my visit; trend of blood sugars noted in the last 24 hours; no other acute complaints mentioned when seen. Exam 2 Narrative: General: WD/WN female in NAD Heart: normal S1 and S2; no rub Lungs: decreased at bases Abdomen: soft, nontender, nondistended, positive bowel sounds Extremities: no cyanosis or clubbing; no edema Skin: no rash Objective Data Vital Signs Vital Signs: Vital Signs Temp Pulse Resp BP Pulse Ox O2 Del Method 02/02/25 11:15 88 02/02/25 09:41 95 02/02/25 09:05 Room Air 02/02/25 08:00 86 02/02/25 06:12 97.6 F 91 18 161/95 H 100 02/02/25 04:00 88 02/02/25 00:00 88 02/02/25 00:00 97.5 F L 90 18 170/81 H 100 02/01/25 21:04 98 02/01/25 20:00 92 02/01/25 20:00 Room Air Intake/Output Intake/Output: Intake & Output 01/30/25 01/31/25 02/01/25 02/02/25 23:59 23:59 23:59 23:59 Intake Total 173.7 1022 700 610 Output Total 771 66 4192 Balance -276.3 972 -2500 610 Meds/Results Medications: Active Medications Generic Name Dose Route Start Last Admin Trade Name Freq PRN Reason Stop Dose Admin Acetaminophen 650 mg 02/02/25 09:12 Acetaminophen Elixir 325 Mg/10.15 Ml Udc FEED TUBE Q4H PRN Mild Pain (1-3) or Fever Amlodipine Besylate 10 mg 02/02/25 09:00 02/02/25 09:41 Amlodipine Besylate 10 Mg Tablet FEED TUBE 10 mg DAILY JAYME Administration Carvedilol 12.5 mg 02/02/25 09:00 02/02/25 09:41 Carvedilol 12.5 Mg Tablet FEED TUBE 12.5 mg Q12H JAYME Administration Dextrose 12.5 gm 01/30/25 14:22 02/01/25 04:39 Dextrose 50% 25 Gm/50 Ml Syringe IV PUSH 12.5 gm PRN PRN Administration Hypoglycemia Protocol Diazepam 5 mg 01/29/25 22:29 02/01/25 04:48 Diazepam Inj (*Crx) 10 Mg/2 Ml Syringe IV PUSH 5 mg Q6H PRN Administration Intractable nausea vomiting Diphenhydramine HCl 50 mg 01/29/25 22:10 02/02/25 17:20 Diphenhydramine Hcl Inj 50 Mg/Ml Vial IV PUSH 50 mg Q4H PRN Administration Itching Escitalopram Oxalate 10 mg 02/02/25 09:00 02/02/25 09:42 Escitalopram Oxalate 10 Mg Tablet FEED TUBE 10 mg DAILY JAYME Administration Gabapentin 100 mg 02/02/25 09:00 02/02/25 17:19 Gabapentin 100 Mg Capsule FEED TUBE 100 mg TID JAYME Administration Glucagon 1 mg 01/30/25 14:22 Glucagon For Inj 1 Mg Vial IM PRN PRN Hypoglycemia Protocol Glucose 15 gm 01/30/25 14:22 Glucose Oral Gel 15 Gm Of Glucse In 37.5 Gm Tube PO PRN PRN Hypoglycemia Protocol Heparin Sodium (Beef Lung) 50 units 01/31/25 09:00 02/02/25 09:42 Heparin Flush 50 Units/5 Ml Syringe IV PUSH 50 units QAM JAYME Administration Heparin Sodium (Beef Lung) 50 units 01/30/25 10:15 Heparin Flush 50 Units/5 Ml Syringe IV PUSH PRN PRN after intermittent infusion Heparin Sodium (Beef Lung) 50 units 01/30/25 10:15 Heparin Flush 50 Units/5 Ml Syringe IV PUSH PRN PRN after blood draws Heparin Sodium (Porcine) 5,000 units 01/30/25 09:00 02/02/25 11:29 Heparin Sodium 5,000 Units/Ml Vial SUB-Q Not Given Q12HR JAYME Heparin Sodium (Porcine) 500 units 01/30/25 10:15 Heparin Sodium Lock Flush 500 Units/5 Ml Syringe IV PUSH PRN PRN see comments below Hydromorphone HCl 0.5 mg 01/30/25 11:31 02/02/25 17:59 Hydromorphone Hcl Inj (*Crx) 1 Mg/Ml Syr IV PUSH 0.5 mg Q2H PRN Administration Pain Rated 7-10 Albumin Human 50 mls @ 999 mls/hr 01/30/25 05:27 Albutein IVPB 03/01/25 05:26 Q10M PRN HYPOTENSION Dextrose 1,000 mls @ 100 mls/hr 01/30/25 14:22 Dextrose 5% 1,000 Ml IVPB PRN PRN Hypoglycemia Protocol Insulin Aspart 3 units 02/01/25 18:00 02/02/25 17:57 Insulin Aspart (*Bkc) 100 Units/Ml SUB-Q 3 units TID@0000,0600,1800 JAYME Administration Insulin Aspart 2 - 5 units 02/02/25 08:00 02/02/25 17:58 Insulin Aspart (*Bkc) 100 Units/Ml SUB-Q 2 units TIDWM JAYME Administration Protocol Insulin Aspart 3 units 02/02/25 12:00 Insulin Aspart (*Bkc) 100 Units/Ml SUB-Q DAILY@1200 PRN ONLY IF PT EATS LUNCH Insulin Glargine 9 units 02/01/25 21:00 02/01/25 21:02 Insulin Glargine (*Bkc) 100 Units/Ml SUB-Q 9 units HS JAYME Administration Isosorbide Dinitrate 10 mg 02/02/25 11:10 02/02/25 17:19 Isosorbide Dinitrate 10 Mg Tablet FEED TUBE 10 mg TID JAYME Administration Isosorbide Mononitrate 30 mg 01/30/25 09:00 02/02/25 09:46 Isosorbide Mononitrate 30 Mg Tab.Er.24h PO Not Given On Hold: 02/02/25 11:08 QAM JAYME Comment: SEE ISOSORBIDE DIN ORDER PER FT Losartan Potassium 25 mg 02/02/25 09:00 02/02/25 09:41 Losartan Potassium 25 Mg Tablet FEED TUBE 25 mg DAILY JAYME Administration Miscellaneous Information 1 each 02/02/25 08:57 Pharmacist Communication Order XX 03/04/25 08:56 ONCE JAYME Ondansetron HCl 4 mg 01/30/25 18:35 Ondansetron Inj 4 Mg/2 Ml Vial IV PUSH Q4H PRN Nausea And Vomiting Pantoprazole Sodium 40 mg 01/30/25 09:00 02/02/25 09:42 Pantoprazole Sodium Iv 40 Mg Vial IV PUSH 40 mg Q12HR JAYME Administration Sodium Chloride 10 ml 01/30/25 14:00 02/02/25 13:04 Central Line Flush IV PUSH 10 ml Q8HR JAYME Administration Radiology Results: ITS Impressions Chest X-Ray 02/01/25 08:19 Impression: CHF Labs Labs: Laboratory Tests 02/02/25 05:17 02/02/25 05:18 Calcium 8.3 L Magnesium 2.1 Total Bilirubin 0.4 AST 25 ALT 37 H Alkaline Phosphatase 279 H Total Protein 7.2 Albumin 3.8 Microbiology 01/29/25 23:30 Blood Blood Culture - Preliminary 01/29/25 23:31 Blood Blood Culture - Preliminary 01/31/25 09:15 Urine Clean Catch - Final
[2025-02-02] MEDS: ISOSORBIDE DINITRATE 10 MG TABLET FEED TUBE ×2 (13:03→17:19)
--- NOTE | 2025-02-02 17:04 | P.PNIM_ITS ---
Progress Note: A&P Assessment and Plan (1) DKA, type 1: Qualifiers: Diabetes mellitus complication detail: without coma Qualified Code(s): E10.10 - Type 1 diabetes mellitus with ketoacidosis without coma Code(s): E10.10 - Type 1 diabetes mellitus with ketoacidosis without coma Status: Acute Assessment and Plan: Pt was not given given IVF due to ESRD Insulin infusion was started and Q1H glucose monitoring is being done. Currently off due to drop in blood sugars Anion gap has now closed and patient has been transition to subcutaneous insulin Her metabolic acidosis anion gap was complicated by history of end-stage renal disease. fluctuating blood sugar Currently on Lantus 9 units at bedtime with 3 units t.i.d.. She takes 15 units Lantus at (2) Nausea & vomiting: Qualifiers: Vomiting type: unspecified Qualified Code(s): R11.2 - Nausea with vomiting, unspecified Code(s): R11.2 - Nausea with vomiting, unspecified Status: Acute Assessment and Plan: History of chronic nausea vomiting. Currently feels better History of gastroparesis on GJ tube placement (3) End stage renal disease on dialysis: Code(s): N18.6 - End stage renal disease; Z99.2 - Dependence on renal dialysis Status: Acute Assessment and Plan: Inpatient dialysis per Nephrology (4) SIRS (systemic inflammatory response syndrome): Code(s): R65.10 - Systemic inflammatory response syndrome (SIRS) of non-infectious origin without acute organ dysfunction Status: Acute Assessment and Plan: Findings suggestive of sirs likely from DKA although blood cultures have been sent and are pending. Procalcitonin level is 2.5 but patient is afebrile with normal WBC count. Hold any antibiotics and monitor this time UA with 10-20 WBC. Urine culture mixed urogenital lupe 25-50 K (5) Hypertension: Code(s): I10 - Essential (primary) hypertension Status: Chronic Assessment and Plan: Continue Coreg amlodipine Imdur and Cozaar Imdur has been changed to isosorbide dinitrate per PEG (6) Type 1 diabetes: Qualifiers: Diabetes mellitus complication status: with hyperglycemia Qualified Code(s): E10.65 - Type 1 diabetes mellitus with hyperglycemia Code(s): E10.9 - Type 1 diabetes mellitus without complications Status: Chronic Assessment and Plan: Patient was started Lantus and sliding scale and on tube feeds. Adjust as needed Plan DVT prophylaxis -heparin subQ Stress ulcer prophylaxis -protonix Nutrition -continue Tube Feeds Code Status - Full Code Subjective Date/time seen: 02/02/25 17:04 Interval history: No overnight events. No new complaints. Discussed with nursing staff. Blood sugar trend reviewed. Labs reviewed. Review of Systems Review of Systems: All systems reviewed & are unremarkable except as noted in HPI and below (HPI) Exam Narrative: Patient is comfortable, NAD HEENT: eyes are clear and none icteric LUNGS:CTA HEART: RR S1S2 ABD: BS+, Soft and nontender G-tube in-situ Lower extremities: no edema SKIN: nonjaundiced Neuro: grossly intact. Objective Data Vital Signs Vital Signs: Vital Signs - 24 hr 02/01/25 17:31 02/01/25 18:30 02/01/25 20:00 Temperature Pulse Rate 99 Respiratory Rate Blood Pressure 175/89 H Pulse Oximetry Oxygen Delivery Room Air 02/01/25 20:00 02/01/25 21:04 02/02/25 00:00 Temperature 97.5 F L Pulse Rate 92 98 90 Respiratory Rate 18 Blood Pressure 170/81 H Pulse Oximetry 100 Oxygen Delivery 02/02/25 00:00 02/02/25 04:00 02/02/25 06:12 Temperature 97.6 F Pulse Rate 88 88 91 Respiratory Rate 18 Blood Pressure 161/95 H Pulse Oximetry 100 Oxygen Delivery 02/02/25 08:00 02/02/25 09:05 02/02/25 09:41 Temperature Pulse Rate 86 95 Respiratory Rate Blood Pressure Pulse Oximetry Oxygen Delivery Room Air 02/02/25 12:00 02/02/25 13:41 02/02/25 16:00 Temperature 97.2 F L Pulse Rate 88 90 84 Respiratory Rate 18 Blood Pressure 148/84 H Pulse Oximetry 100 Oxygen Delivery Intake/Output Intake/Output: Intake & Output 01/30/25 01/31/25 02/01/25 02/02/25 23:59 23:59 23:59 23:59 Intake Total 173.7 1022 700 360 Output Total 995 57 0176 Balance -276.3 972 -2500 360 Meds/Results Medications: Active Medications Generic Name Dose Route Start Last Admin Trade Name Freq PRN Reason Stop Dose Admin Acetaminophen 650 mg 02/02/25 09:12 Acetaminophen Elixir 325 Mg/10.15 Ml Udc FEED TUBE Q4H PRN Mild Pain (1-3) or Fever Amlodipine Besylate 10 mg 02/02/25 09:00 02/02/25 09:41 Amlodipine Besylate 10 Mg Tablet FEED TUBE 10 mg DAILY JAYME Administration Carvedilol 12.5 mg 02/02/25 09:00 02/02/25 09:41 Carvedilol 12.5 Mg Tablet FEED TUBE 12.5 mg Q12H JAYME Administration Dextrose 12.5 gm 01/30/25 14:22 02/01/25 04:39 Dextrose 50% 25 Gm/50 Ml Syringe IV PUSH 12.5 gm PRN PRN Administration Hypoglycemia Protocol Diazepam 5 mg 01/29/25 22:29 02/01/25 04:48 Diazepam Inj (*Crx) 10 Mg/2 Ml Syringe IV PUSH 5 mg Q6H PRN Administration Intractable nausea vomiting Diphenhydramine HCl 50 mg 01/29/25 22:10 02/02/25 13:03 Diphenhydramine Hcl Inj 50 Mg/Ml Vial IV PUSH 50 mg Q4H PRN Administration Itching Escitalopram Oxalate 10 mg 02/02/25 09:00 02/02/25 09:42 Escitalopram Oxalate 10 Mg Tablet FEED TUBE 10 mg DAILY JAYME Administration Gabapentin 100 mg 02/02/25 09:00 02/02/25 13:03 Gabapentin 100 Mg Capsule FEED TUBE 100 mg TID JAYME Administration Glucagon 1 mg 01/30/25 14:22 Glucagon For Inj 1 Mg Vial IM PRN PRN Hypoglycemia Protocol Glucose 15 gm 01/30/25 14:22 Glucose Oral Gel 15 Gm Of Glucse In 37.5 Gm Tube PO PRN PRN Hypoglycemia Protocol Heparin Sodium (Beef Lung) 50 units 01/31/25 09:00 02/02/25 09:42 Heparin Flush 50 Units/5 Ml Syringe IV PUSH 50 units QAM JAYME Administration Heparin Sodium (Beef Lung) 50 units 01/30/25 10:15 Heparin Flush 50 Units/5 Ml Syringe IV PUSH PRN PRN after intermittent infusion Heparin Sodium (Beef Lung) 50 units 01/30/25 10:15 Heparin Flush 50 Units/5 Ml Syringe IV PUSH PRN PRN after blood draws Heparin Sodium (Porcine) 5,000 units 01/30/25 09:00 02/02/25 11:29 Heparin Sodium 5,000 Units/Ml Vial SUB-Q Not Given Q12HR [facility] Heparin Sodium (Porcine) 500 units 01/30/25 10:15 Heparin Sodium Lock Flush 500 Units/5 Ml Syringe IV PUSH PRN PRN see comments below Hydromorphone HCl 0.5 mg 01/30/25 11:31 02/02/25 15:04 Hydromorphone Hcl Inj (*Crx) 1 Mg/Ml Syr IV PUSH 0.5 mg Q2H PRN Administration Pain Rated 7-10 Albumin Human 50 mls @ 999 mls/hr 01/30/25 05:27 Albutein IVPB 03/01/25 05:26 Q10M PRN HYPOTENSION Dextrose 1,000 mls @ 100 mls/hr 01/30/25 14:22 Dextrose 5% 1,000 Ml IVPB PRN PRN Hypoglycemia Protocol Insulin Aspart 3 units 02/01/25 18:00 02/02/25 06:54 Insulin Aspart (*Bkc) 100 Units/Ml SUB-Q Not Given TID@0000,0600,1800 [facility] Insulin Aspart 2 - 5 units 02/02/25 08:00 02/02/25 12:26 Insulin Aspart (*Bkc) 100 Units/Ml SUB-Q Not Given TIDWM [facility] Protocol Insulin Aspart 3 units 02/02/25 12:00 Insulin Aspart (*Bkc) 100 Units/Ml SUB-Q DAILY@1200 PRN ONLY IF PT EATS LUNCH Insulin Glargine 9 units 02/01/25 21:00 02/01/25 21:02 Insulin Glargine (*Bkc) 100 Units/Ml SUB-Q 9 units HS [facility] Administration Isosorbide Dinitrate 10 mg 02/02/25 11:10 02/02/25 15:00 Isosorbide Dinitrate 10 Mg Tablet FEED TUBE Not Given TID [facility] Isosorbide Mononitrate 30 mg 01/30/25 09:00 02/02/25 09:46 Isosorbide Mononitrate 30 Mg Tab.Er.24h PO Not Given On Hold: 02/02/25 11:08 QAM [facility] Comment: SEE ISOSORBIDE DIN ORDER PER FT Losartan Potassium 25 mg 02/02/25 09:00 02/02/25 09:41 Losartan Potassium 25 Mg Tablet FEED TUBE 25 mg DAILY [facility] Administration Miscellaneous Information 1 each 02/02/25 08:57 Pharmacist Communication Order XX 03/04/25 08:56 ONCE JAYME Ondansetron HCl 4 mg 01/30/25 18:35 Ondansetron Inj 4 Mg/2 Ml Vial IV PUSH Q4H PRN Nausea And Vomiting Pantoprazole Sodium 40 mg 01/30/25 09:00 02/02/25 09:42 Pantoprazole Sodium Iv 40 Mg Vial IV PUSH 40 mg Q12HR JAYME Administration Sodium Chloride 10 ml 01/30/25 14:00 02/02/25 13:04 Central Line Flush IV PUSH 10 ml Q8HR JAYME Administration Radiology Results: ITS Impressions Chest X-Ray 02/01/25 08:19 Impression: CHF Labs Labs: Laboratory Results - last 24 hr 02/01/25 02/01/25 02/02/25 16:59 20:49 00:03 WBC RBC Hgb Hct MCV MCH MCHC RDW Plt Count MPV Sodium Potassium Chloride Carbon Dioxide Anion Gap BUN Creatinine Estim Creat Clear Calc Estimated GFR Glucose POC Capillary Glucose 151 H 247 H 337 H Calcium Magnesium Total Bilirubin AST ALT Alkaline Phosphatase Total Protein Albumin 02/02/25 02/02/25 02/02/25 04:01 05:17 05:18 WBC 5.5 RBC 3.43 L Hgb 9.7 L Hct 31.8 L MCV 92.7 MCH 28.3 MCHC 30.5 L RDW 15.3 H Plt Count 195 MPV 10.5 H Sodium 139 Potassium 3.9 Chloride 98 Carbon Dioxide 34 H Anion Gap 7 BUN 29 H D Creatinine 4.53 H Estim Creat Clear Calc 16 Estimated GFR 11 L Glucose 178 H POC Capillary Glucose 172 H Calcium 8.3 L Magnesium 2.1 Total Bilirubin 0.4 AST 25 ALT 37 H Alkaline Phosphatase 279 H Total Protein 7.2 Albumin 3.8 02/02/25 02/02/25 02/02/25 06:01 06:51 09:00 WBC RBC Hgb Hct MCV MCH MCHC RDW Plt Count MPV Sodium Potassium Chloride Carbon Dioxide Anion Gap BUN Creatinine Estim Creat Clear Calc Estimated GFR Glucose POC Capillary Glucose 211 H 221 H 230 H Calcium Magnesium Total Bilirubin AST ALT Alkaline Phosphatase Total Protein Albumin 02/02/25 12:22 WBC RBC Hgb Hct MCV MCH MCHC RDW Plt Count MPV Sodium Potassium Chloride Carbon Dioxide Anion Gap BUN Creatinine Estim Creat Clear Calc Estimated GFR Glucose POC Capillary Glucose 179 H Calcium Magnesium Total Bilirubin AST ALT Alkaline Phosphatase Total Protein Albumin
[2025-02-02] MEDS: INSULIN GLARGINE (*BKC) 100 UNITS/ML 9 UNITS SUB-Q (22:22)
[2025-02-03] VITALS (27 sets, daily range): BP systolic 150–192; BP diastolic 81–114; PULSE 87–102; RESP 14–20; TEMP 36.3–37; O2SAT 98–100
[2025-02-03] MEDS: HYDROmorphone HCL INJ (*CRX) 1 MG/ML SYR 0.5 MG IV PUSH ×8 (03:13→23:01)
[2025-02-03] MEDS: INSULIN ASPART (*BKC) 100 UNITS/ML SUB-Q ×3 (05:36→17:24)
[2025-02-03 05:50] LABS: Hematocrit 29.2 % (37.0-47.0); Hemoglobin 9.0 g/dL (12.0-15.0); Mean Corpuscular HGB Conc 30.8 g/dl (32-36); Mean Corpuscular Hemoglobin 28.7 pg (26-34); Mean Corpuscular Volume 93.0 fl (80-100); Platelet Count Result 189 k/mm3 (150-375); Red Blood Count 3.14 M/mm3 (4.2-5.4); White Blood Count 5.8 K/mm3 (4.5-10.0)
[2025-02-03] MEDS: CENTRAL LINE FLUSH 10 ML IV PUSH ×3 (05:58→20:39)
[2025-02-03 06:29] LABS: Alanine Aminotransferase 36 U/L (6-35); Albumin Level 3.7 g/dL (3.5-5.1); Alkaline Phosphatase 294 U/L (38-126); Anion Gap 9 mmol/L (4-12); Aspartate Amino Transferase 29 U/L (14-36); Bilirubin,Total 0.3 mg/dL (0.2-1.3); Blood Urea Nitrogen 45 mg/dL (7-17); Calcium 8.1 mg/dL (8.4-10.2); Carbon Dioxide 33 mmol/L (22-30); Chloride 93 mmol/L (98-107); Estimated CRCL calculation 12 ml/min; Estimated Glomerular Filt Rate 8; Glucose 391 mg/dL (65-110); Magnesium 2.3 mg/dL (1.6-2.3); Potassium 4.6 mmol/L (3.4-5.0); Sodium 135 mmol/L (137-145); Total Protein 6.9 g/dL (6.3-8.2)
[2025-02-03] MEDS: LOSARTAN POTASSIUM 25 MG TABLET FEED TUBE (08:54)
[2025-02-03] MEDS: ESCITALOPRAM OXALATE 10 MG TABLET FEED TUBE (08:54)
[2025-02-03] MEDS: ISOSORBIDE DINITRATE 10 MG TABLET FEED TUBE ×3 (08:54→17:18)
[2025-02-03] MEDS: GABAPENTIN 100 MG CAPSULE FEED TUBE ×3 (08:55→17:18)
[2025-02-03] MEDS: PANTOPRAZOLE SODIUM IV 40 MG VIAL IV PUSH ×2 (08:55→20:38)
[2025-02-03] MEDS: SODIUM CHLORIDE 0.9% IV 1,000 ML 999 ML IV CONT (09:45)
[2025-02-03] MEDS: EPOETIN ALFA-EPBX 10,000 UNITS/ML VIAL 10000 UNITS IV PUSH (09:45)
--- NOTE | 2025-02-03 09:50 | P.PNNP_ITS ---
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 Odilon Tellez (2) DKA (diabetic ketoacidosis): Qualifiers: Diabetes mellitus complication detail: without coma Diabetes mellitus type: type 1 Qualified Code(s): E10.10 - Type 1 diabetes mellitus with ketoacidosis without coma Code(s): E11.10 - Type 2 diabetes mellitus with ketoacidosis without coma Status: Resolved Assessment and Plan: * resolved * as noted by evaluation in ER * recurrent and multiple ER visits/hospitalizations for this problems (usually gets most of her care at [facility] and more recently at [facility]) * s/p insulin gtt and weaned off * transitioned to SQ insulin (3) Nausea & vomiting: Qualifiers: Vomiting type: unspecified Qualified Code(s): R11.2 - Nausea with vomiting, unspecified Code(s): R11.2 - Nausea with vomiting, unspecified Status: Acute Assessment and Plan: * chronic and long standing issue (per patient and review of records) * cyclic in nature * thought to be secondary to diabetic gastroparesis * s/p recent G-J-tube placement to ensure adequate/supplemental nutrition given this issue * continue oral intake and supplement tube feeds as needed (4) Hyperkalemia: Code(s): E87.5 - Hyperkalemia Status: Acute Assessment and Plan: * resolved * as noted by admission labs and AM labs on 01/30 * corrected with dialysis * follow trend (5) Diabetic gastroparesis: Code(s): E11.43 - Type 2 diabetes mellitus with diabetic autonomic (poly)neuropathy; K31.84 - Gastroparesis Status: Acute Assessment and Plan: * known and long standing issue * likely precipiting factor for admission symptoms (6) Anemia: Code(s): D64.9 - Anemia, unspecified Status: Chronic Assessment and Plan: * due to ESRD * Epogen with HD * follow trend of H/H (7) Hypertension: Code(s): I10 - Essential (primary) hypertension Status: Chronic Assessment and Plan: * quite elevated on admission * high this AM (BP medications not given in anticipation of dialysis today) * on home medications * follow trend of hemodynamics (8) Type 1 diabetes: Qualifiers: Diabetes mellitus complication status: with hyperglycemia Qualified Code(s): E10.65 - Type 1 diabetes mellitus with hyperglycemia Code(s): E10.9 - Type 1 diabetes mellitus without complications Status: Chronic Assessment and Plan: * follow accu-chek * transitioned to SQ insulin (SSI and Lantus) * glycemic control per hospitalist As mentioned on initial consultation, she was usually getting all of her care at [facility] in [place] prior to her recent hospitalizations here at [facility] since December 2024 -- review of records from [facility] mention the concern for drug seeking behavior due to her insistence of the use of IV bendaryl and IV dilaudid for symptom control related to her nausea/vomiting and abdominal pain issues, respectively. As a result, these medication administrations have been limited/reduced when she last presented to [facility] ER (for DKA as well) and seemingly resulting in her leaving AMA. Will continue to follow. L Subjective Date/time seen: 02/03/25 09:50 Interval history: Follow-up for end stage renal disease on hemodialysis. Tolerating dialysis treatment at the time of my visit (seen on HD at 9:40am); no apparent distress noted when seen; still having issues with abdominal pain and intermittent nausea; requesting her IV benadryl be changed back to every 4 hours. Exam 2 Narrative: General: WD/WN female in NAD Heart: normal S1 and S2; no rub Lungs: decreased at bases Abdomen: soft, nontender, nondistended, positive bowel sounds Extremities: no cyanosis or clubbing; no edema Skin: no nodules Objective Data Vital Signs Vital Signs: Vital Signs Temp Pulse Resp BP Pulse Ox O2 Del Method O2 Flow Rate 02/03/25 09:45 92 167/90 H 02/03/25 09:30 94 165/93 H 02/03/25 09:15 102 H 175/103 H 02/03/25 09:00 94 191/108 H 02/03/25 08:54 93 02/03/25 08:45 94 189/105 H 02/03/25 08:30 93 182/104 H 02/03/25 08:15 93 179/99 H 02/03/25 08:01 96 189/114 H 02/03/25 07:50 1 02/03/25 07:50 98.4 F 96 16 192/111 H 100 02/03/25 05:29 97.7 F 99 14 179/89 H 100 02/03/25 04:00 89 02/03/25 00:00 87 02/02/25 22:00 97.7 F 86 14 155/79 H 92 02/02/25 20:59 91 02/02/25 20:00 92 02/02/25 20:00 Room Air 02/02/25 16:00 84 Intake/Output Intake/Output: Intake & Output 01/31/25 02/01/25 02/02/25 02/03/25 23:59 23:59 23:59 23:59 Intake Total 1022 700 810 300 Output Total 50 3200 2000 Balance 972 -2500 810 -1700 Meds/Results Medications: Active Medications Generic Name Dose Route Start Last Admin Trade Name Freq PRN Reason Stop Dose Admin Acetaminophen 650 mg 02/02/25 09:12 Acetaminophen Elixir 325 Mg/10.15 Ml Udc FEED TUBE Q4H PRN Mild Pain (1-3) or Fever Amlodipine Besylate 10 mg 02/02/25 09:00 02/03/25 08:54 Amlodipine Besylate 10 Mg Tablet FEED TUBE 10 mg DAILY JAYME Administration Carvedilol 12.5 mg 02/02/25 09:00 02/03/25 08:54 Carvedilol 12.5 Mg Tablet FEED TUBE 12.5 mg Q12H JAYME Administration Dextrose 12.5 gm 01/30/25 14:22 02/01/25 04:39 Dextrose 50% 25 Gm/50 Ml Syringe IV PUSH 12.5 gm PRN PRN Administration Hypoglycemia Protocol Diazepam 5 mg 01/29/25 22:29 02/01/25 04:48 Diazepam Inj (*Crx) 10 Mg/2 Ml Syringe IV PUSH 5 mg Q6H PRN Administration Intractable nausea vomiting Diphenhydramine HCl 50 mg 02/03/25 10:47 02/03/25 12:22 Diphenhydramine Hcl Inj 50 Mg/Ml Vial IV PUSH 50 mg Q4H PRN Administration Itching Epoetin Live-epbx 10,000 units 02/03/25 18:40 02/03/25 09:45 Epoetin Live-Epbx 10,000 Units/Ml Vial IV PUSH 02/03/25 18:41 10,000 units ONCE ONE Administration Escitalopram Oxalate 10 mg 02/02/25 09:00 02/03/25 08:54 Escitalopram Oxalate 10 Mg Tablet FEED TUBE 10 mg DAILY JAYME Administration Gabapentin 100 mg 02/02/25 09:00 02/03/25 12:15 Gabapentin 100 Mg Capsule FEED TUBE 100 mg TID JAYME Administration Glucagon 1 mg 01/30/25 14:22 Glucagon For Inj 1 Mg Vial IM PRN PRN Hypoglycemia Protocol Glucose 15 gm 01/30/25 14:22 Glucose Oral Gel 15 Gm Of Glucse In 37.5 Gm Tube PO PRN PRN Hypoglycemia Protocol Heparin Sodium (Beef Lung) 50 units 01/31/25 09:00 02/03/25 12:16 Heparin Flush 50 Units/5 Ml Syringe IV PUSH 50 units QAM JAYME Administration Heparin Sodium (Beef Lung) 50 units 01/30/25 10:15 Heparin Flush 50 Units/5 Ml Syringe IV PUSH PRN PRN after intermittent infusion Heparin Sodium (Beef Lung) 50 units 01/30/25 10:15 Heparin Flush 50 Units/5 Ml Syringe IV PUSH PRN PRN after blood draws Heparin Sodium (Porcine) 5,000 units 01/30/25 09:00 02/03/25 11:45 Heparin Sodium 5,000 Units/Ml Vial SUB-Q Not Given Q12HR JAYME Heparin Sodium (Porcine) 500 units 01/30/25 10:15 Heparin Sodium Lock Flush 500 Units/5 Ml Syringe IV PUSH PRN PRN see comments below Hydromorphone HCl 0.5 mg 01/30/25 11:31 02/03/25 12:22 Hydromorphone Hcl Inj (*Crx) 1 Mg/Ml Syr IV PUSH 0.5 mg Q2H PRN Administration Pain Rated 7-10 Albumin Human 50 mls @ 999 mls/hr 01/30/25 05:27 Albutein IVPB 03/01/25 05:26 Q10M PRN HYPOTENSION Dextrose 1,000 mls @ 100 mls/hr 01/30/25 14:22 Dextrose 5% 1,000 Ml IVPB PRN PRN Hypoglycemia Protocol Insulin Aspart 3 units 02/01/25 18:00 02/03/25 05:36 Insulin Aspart (*Bkc) 100 Units/Ml SUB-Q 3 units TID@0000,0600,1800 JAYME Administration Insulin Aspart 2 - 5 units 02/02/25 08:00 02/03/25 11:54 Insulin Aspart (*Bkc) 100 Units/Ml SUB-Q Not Given TIDWM JAYME Protocol Insulin Aspart 3 units 02/02/25 12:00 Insulin Aspart (*Bkc) 100 Units/Ml SUB-Q DAILY@1200 PRN ONLY IF PT EATS LUNCH Isosorbide Dinitrate 10 mg 02/02/25 11:10 02/03/25 12:15 Isosorbide Dinitrate 10 Mg Tablet FEED TUBE 10 mg TID JAYME Administration Losartan Potassium 25 mg 02/02/25 09:00 02/03/25 08:54 Losartan Potassium 25 Mg Tablet FEED TUBE 25 mg DAILY JAYME Administration Miscellaneous Information 1 each 02/02/25 08:57 Pharmacist Communication Order XX 03/04/25 08:56 ONCE JAYME Ondansetron HCl 4 mg 01/30/25 18:35 Ondansetron Inj 4 Mg/2 Ml Vial IV PUSH Q4H PRN Nausea And Vomiting Pantoprazole Sodium 40 mg 01/30/25 09:00 02/03/25 08:55 Pantoprazole Sodium Iv 40 Mg Vial IV PUSH 40 mg Q12HR JAYME Administration Sodium Chloride 10 ml 01/30/25 14:00 02/03/25 05:58 Central Line Flush IV PUSH 10 ml Q8HR JAYME Administration Radiology Results: ITS Impressions Chest X-Ray 02/02/25 20:02 IMPRESSION: No acute pulmonary findings. Labs Labs: Laboratory Tests 02/03/25 05:45 02/03/25 05:45 Calcium 8.1 L Magnesium 2.3 Total Bilirubin 0.3 AST 29 ALT 36 H Alkaline Phosphatase 294 H Total Protein 6.9 Albumin 3.7 Microbiology 01/29/25 23:30 Blood Blood Culture - Preliminary 01/29/25 23:31 Blood Blood Culture - Preliminary
[2025-02-03] MEDS: INSULIN GLARGINE (*BKC) 100 UNITS/ML 10 UNITS SUB-Q (12:16)
--- NOTE | 2025-02-03 13:03 | PM.IMPN ---
Progress Note: A&P Assessment and Plan (1) DKA, type 1: Qualifiers: Diabetes mellitus complication detail: without coma Qualified Code(s): E10.10 - Type 1 diabetes mellitus with ketoacidosis without coma Code(s): E10.10 - Type 1 diabetes mellitus with ketoacidosis without coma Status: Acute Assessment and Plan: Pt was not given given IVF due to ESRD Insulin infusion was started and Q1H glucose monitoring is being done. Currently off due to drop in blood sugars Anion gap has now closed and patient has been transition to subcutaneous insulin Her metabolic acidosis anion gap was complicated by history of end-stage renal disease. fluctuating blood sugar Currently on Lantus 9 units at bedtime with 3 units t.i.d.. She takes 15 units Lantus at home Blood sugar trending up. Will give extra Lantus this a.m. and adjust dose as needed. (2) Nausea & vomiting: Qualifiers: Vomiting type: unspecified Qualified Code(s): R11.2 - Nausea with vomiting, unspecified Code(s): R11.2 - Nausea with vomiting, unspecified Status: Acute Assessment and Plan: History of chronic nausea vomiting. Currently feels better History of gastroparesis on GJ tube placement (3) End stage renal disease on dialysis: Code(s): N18.6 - End stage renal disease; Z99.2 - Dependence on renal dialysis Status: Acute Assessment and Plan: Inpatient dialysis per Nephrology (4) SIRS (systemic inflammatory response syndrome): Code(s): R65.10 - Systemic inflammatory response syndrome (SIRS) of non-infectious origin without acute organ dysfunction Status: Acute Assessment and Plan: Findings suggestive of sirs likely from DKA although blood cultures have been sent and are pending. Procalcitonin level is 2.5 but patient is afebrile with normal WBC count. Hold any antibiotics and monitor this time UA with 10-20 WBC. Urine culture mixed urogenital lupe 25-50 K (5) Hypertension: Code(s): I10 - Essential (primary) hypertension Status: Chronic Assessment and Plan: Continue Coreg amlodipine Imdur and Cozaar Imdur has been changed to isosorbide dinitrate per PEG (6) Type 1 diabetes: Qualifiers: Diabetes mellitus complication status: with hyperglycemia Qualified Code(s): E10.65 - Type 1 diabetes mellitus with hyperglycemia Code(s): E10.9 - Type 1 diabetes mellitus without complications Status: Chronic Assessment and Plan: Patient was started Lantus and sliding scale and on tube feeds. Adjust as needed Plan DVT prophylaxis -heparin subQ Stress ulcer prophylaxis -protonix Nutrition -continue Tube Feeds Code Status - Full Code Subjective Date/time seen: 02/03/25 13:03 Interval history: Patient reports some abdominal discomfort and some nausea. Blood sugar trend reviewed. Getting her dialysis done today. Review of Systems Review of Systems: All systems reviewed & are unremarkable except as noted in HPI and below (HPI) Exam Narrative: Patient is comfortable, NAD HEENT: eyes are clear and none icteric LUNGS:CTA HEART: RR S1S2 ABD: BS+, Soft and nontender G-tube in-situ Lower extremities: no edema SKIN: nonjaundiced Neuro: grossly intact. Objective Data Vital Signs Vital Signs: Vital Signs - 24 hr 02/02/25 13:41 02/02/25 16:00 02/02/25 20:00 Temperature 97.2 F L Pulse Rate 90 84 Respiratory Rate 18 Blood Pressure 148/84 H Pulse Oximetry 100 Oxygen Delivery Room Air Oxygen Flow Rate 02/02/25 20:00 02/02/25 20:59 02/02/25 22:00 Temperature 97.7 F Pulse Rate 92 91 86 Respiratory Rate 14 Blood Pressure 155/79 H Pulse Oximetry 92 Oxygen Delivery Oxygen Flow Rate 02/03/25 00:00 02/03/25 04:00 02/03/25 05:29 Temperature 97.7 F Pulse Rate 87 89 99 Respiratory Rate 14 Blood Pressure 179/89 H Pulse Oximetry 100 Oxygen Delivery Oxygen Flow Rate 02/03/25 07:50 02/03/25 07:50 02/03/25 08:01 Temperature 98.4 F Pulse Rate 96 96 Respiratory Rate 16 Blood Pressure 192/111 H 189/114 H Pulse Oximetry 100 Oxygen Delivery Oxygen Flow Rate 1 02/03/25 08:15 02/03/25 08:30 02/03/25 08:45 Temperature Pulse Rate 93 93 94 Respiratory Rate Blood Pressure 179/99 H 182/104 H 189/105 H Pulse Oximetry Oxygen Delivery Oxygen Flow Rate 02/03/25 08:54 02/03/25 09:00 02/03/25 09:15 Temperature Pulse Rate 93 94 102 H Respiratory Rate Blood Pressure 191/108 H 175/103 H Pulse Oximetry Oxygen Delivery Oxygen Flow Rate 02/03/25 09:30 02/03/25 09:45 02/03/25 10:00 Temperature Pulse Rate 94 92 93 Respiratory Rate Blood Pressure 165/93 H 167/90 H 150/90 H Pulse Oximetry Oxygen Delivery Oxygen Flow Rate 02/03/25 10:15 02/03/25 10:30 02/03/25 10:45 Temperature Pulse Rate 88 90 90 Respiratory Rate Blood Pressure 166/89 H 154/83 H 159/85 H Pulse Oximetry Oxygen Delivery Oxygen Flow Rate 02/03/25 11:02 02/03/25 11:09 02/03/25 11:34 Temperature 98.4 F 97.4 F L Pulse Rate 90 90 93 Respiratory Rate 16 16 Blood Pressure 165/91 H 169/89 H 176/90 H Pulse Oximetry 100 100 Oxygen Delivery Oxygen Flow Rate Intake/Output Intake/Output: Intake & Output 01/31/25 02/01/25 02/02/25 02/03/25 23:59 23:59 23:59 23:59 Intake Total 1022 700 810 300 Output Total 50 3200 2000 Balance 972 -2500 810 -1700 Meds/Results Medications: Active Medications Generic Name Dose Route Start Last Admin Trade Name Freq PRN Reason Stop Dose Admin Acetaminophen 650 mg 02/02/25 09:12 Acetaminophen Elixir 325 Mg/10.15 Ml Udc FEED TUBE Q4H PRN Mild Pain (1-3) or Fever Amlodipine Besylate 10 mg 02/02/25 09:00 02/03/25 08:54 Amlodipine Besylate 10 Mg Tablet FEED TUBE 10 mg DAILY JAYME Administration Carvedilol 12.5 mg 02/02/25 09:00 02/03/25 08:54 Carvedilol 12.5 Mg Tablet FEED TUBE 12.5 mg Q12H JAYME Administration Dextrose 12.5 gm 01/30/25 14:22 02/01/25 04:39 Dextrose 50% 25 Gm/50 Ml Syringe IV PUSH 12.5 gm PRN PRN Administration Hypoglycemia Protocol Diazepam 5 mg 01/29/25 22:29 02/01/25 04:48 Diazepam Inj (*Crx) 10 Mg/2 Ml Syringe IV PUSH 5 mg Q6H PRN Administration Intractable nausea vomiting Diphenhydramine HCl 50 mg 02/03/25 10:47 02/03/25 12:22 Diphenhydramine Hcl Inj 50 Mg/Ml Vial IV PUSH 50 mg Q4H PRN Administration Itching Epoetin Live-epbx 10,000 units 02/03/25 18:40 02/03/25 09:45 Epoetin Live-Epbx 10,000 Units/Ml Vial IV PUSH 02/03/25 18:41 10,000 units ONCE ONE Administration Escitalopram Oxalate 10 mg 02/02/25 09:00 02/03/25 08:54 Escitalopram Oxalate 10 Mg Tablet FEED TUBE 10 mg DAILY JAYME Administration Gabapentin 100 mg 02/02/25 09:00 02/03/25 12:15 Gabapentin 100 Mg Capsule FEED TUBE 100 mg TID JAYME Administration Glucagon 1 mg 01/30/25 14:22 Glucagon For Inj 1 Mg Vial IM PRN PRN Hypoglycemia Protocol Glucose 15 gm 01/30/25 14:22 Glucose Oral Gel 15 Gm Of Glucse In 37.5 Gm Tube PO PRN PRN Hypoglycemia Protocol Heparin Sodium (Beef Lung) 50 units 01/31/25 09:00 02/03/25 12:16 Heparin Flush 50 Units/5 Ml Syringe IV PUSH 50 units QAM JAYME Administration Heparin Sodium (Beef Lung) 50 units 01/30/25 10:15 Heparin Flush 50 Units/5 Ml Syringe IV PUSH PRN PRN after intermittent infusion Heparin Sodium (Beef Lung) 50 units 01/30/25 10:15 Heparin Flush 50 Units/5 Ml Syringe IV PUSH PRN PRN after blood draws Heparin Sodium (Porcine) 5,000 units 01/30/25 09:00 02/03/25 11:45 Heparin Sodium 5,000 Units/Ml Vial SUB-Q Not Given Q12HR [facility] Heparin Sodium (Porcine) 500 units 01/30/25 10:15 Heparin Sodium Lock Flush 500 Units/5 Ml Syringe IV PUSH PRN PRN see comments below Hydromorphone HCl 0.5 mg 01/30/25 11:31 02/03/25 12:22 Hydromorphone Hcl Inj (*Crx) 1 Mg/Ml Syr IV PUSH 0.5 mg Q2H PRN Administration Pain Rated 7-10 Albumin Human 50 mls @ 999 mls/hr 01/30/25 05:27 Albutein IVPB 03/01/25 05:26 Q10M PRN HYPOTENSION Dextrose 1,000 mls @ 100 mls/hr 01/30/25 14:22 Dextrose 5% 1,000 Ml IVPB PRN PRN Hypoglycemia Protocol Insulin Aspart 3 units 02/01/25 18:00 02/03/25 05:36 Insulin Aspart (*Bkc) 100 Units/Ml SUB-Q 3 units TID@0000,0600,1800 JAYME Administration Insulin Aspart 2 - 5 units 02/02/25 08:00 02/03/25 11:54 Insulin Aspart (*Bkc) 100 Units/Ml SUB-Q Not Given TIDWM [facility] Protocol Insulin Aspart 3 units 02/02/25 12:00 Insulin Aspart (*Bkc) 100 Units/Ml SUB-Q DAILY@1200 PRN ONLY IF PT EATS LUNCH Isosorbide Dinitrate 10 mg 02/02/25 11:10 02/03/25 12:15 Isosorbide Dinitrate 10 Mg Tablet FEED TUBE 10 mg TID JAYME Administration Isosorbide Mononitrate 30 mg 01/30/25 09:00 02/02/25 09:46 Isosorbide Mononitrate 30 Mg Tab.Er.24h PO Not Given On Hold: 02/02/25 11:08 QAM JAYME Comment: SEE ISOSORBIDE DIN ORDER PER FT Losartan Potassium 25 mg 02/02/25 09:00 02/03/25 08:54 Losartan Potassium 25 Mg Tablet FEED TUBE 25 mg DAILY JAYME Administration Miscellaneous Information 1 each 02/02/25 08:57 Pharmacist Communication Order XX 03/04/25 08:56 ONCE JAYME Ondansetron HCl 4 mg 01/30/25 18:35 Ondansetron Inj 4 Mg/2 Ml Vial IV PUSH Q4H PRN Nausea And Vomiting Pantoprazole Sodium 40 mg 01/30/25 09:00 02/03/25 08:55 Pantoprazole Sodium Iv 40 Mg Vial IV PUSH 40 mg Q12HR JAYME Administration Sodium Chloride 10 ml 01/30/25 14:00 02/03/25 05:58 Central Line Flush IV PUSH 10 ml Q8HR JAYME Administration Radiology Results: ITS Impressions Chest X-Ray 02/02/25 20:02 IMPRESSION: No acute pulmonary findings. Labs Labs: Laboratory Results - last 24 hr 02/02/25 02/02/25 02/02/25 12:22 17:02 22:04 WBC RBC Hgb Hct MCV MCH MCHC RDW Plt Count MPV Sodium Potassium Chloride Carbon Dioxide Anion Gap BUN Creatinine Estim Creat Clear Calc Estimated GFR Glucose POC Capillary Glucose 179 H 230 H 258 H Calcium Magnesium Total Bilirubin AST ALT Alkaline Phosphatase Total Protein Albumin 02/02/25 02/03/25 02/03/25 23:42 05:35 05:45 WBC 5.8 RBC 3.14 L Hgb 9.0 L Hct 29.2 L MCV 93.0 MCH 28.7 MCHC 30.8 L RDW 15.2 H Plt Count 189 MPV 10.7 H Sodium 135 L Potassium 4.6 Chloride 93 L Carbon Dioxide 33 H Anion Gap 9 BUN 45 H D Creatinine 6.21 H Estim Creat Clear Calc 12 Estimated GFR 8 L Glucose 391 H POC Capillary Glucose 363 H 345 H Calcium 8.1 L Magnesium 2.3 Total Bilirubin 0.3 AST 29 ALT 36 H Alkaline Phosphatase 294 H Total Protein 6.9 Albumin 3.7 02/03/25 02/03/25 08:48 11:34 WBC RBC Hgb Hct MCV MCH MCHC RDW Plt Count MPV Sodium Potassium Chloride Carbon Dioxide Anion Gap BUN Creatinine Estim Creat Clear Calc Estimated GFR Glucose POC Capillary Glucose 270 H 167 H Calcium Magnesium Total Bilirubin AST ALT Alkaline Phosphatase Total Protein Albumin
[2025-02-04] VITALS (12 sets, daily range): BP systolic 156–191; BP diastolic 77–98; PULSE 85–102; RESP 16–20; TEMP 36.2–36.9; O2SAT 98–99
[2025-02-04] MEDS: INSULIN ASPART (*BKC) 100 UNITS/ML SUB-Q ×5 (00:05→17:59)
[2025-02-04] MEDS: HYDROmorphone HCL INJ (*CRX) 1 MG/ML SYR 0.5 MG IV PUSH ×7 (02:08→21:21)
[2025-02-04 05:48] LABS: Hematocrit 29.6 % (37.0-47.0); Hemoglobin 9.0 g/dL (12.0-15.0); Mean Corpuscular HGB Conc 30.4 g/dl (32-36); Mean Corpuscular Hemoglobin 28.6 pg (26-34); Mean Corpuscular Volume 94.0 fl (80-100); Platelet Count Result 212 k/mm3 (150-375); Red Blood Count 3.15 M/mm3 (4.2-5.4); White Blood Count 5.9 K/mm3 (4.5-10.0)
[2025-02-04] MEDS: CENTRAL LINE FLUSH 10 ML IV PUSH ×3 (06:03→22:00)
[2025-02-04 06:16] LABS: Alanine Aminotransferase 52 U/L (6-35); Albumin Level 3.7 g/dL (3.5-5.1); Alkaline Phosphatase 346 U/L (38-126); Anion Gap 8 mmol/L (4-12); Aspartate Amino Transferase 56 U/L (14-36); Bilirubin,Total 0.2 mg/dL (0.2-1.3); Blood Urea Nitrogen 33 mg/dL (7-17); Calcium 8.5 mg/dL (8.4-10.2); Carbon Dioxide 30 mmol/L (22-30); Chloride 97 mmol/L (98-107); Estimated CRCL calculation 16 ml/min; Estimated Glomerular Filt Rate 13; Glucose 412 mg/dL (65-110); Magnesium 2.1 mg/dL (1.6-2.3); Potassium 4.7 mmol/L (3.4-5.0); Sodium 135 mmol/L (137-145); Total Protein 7.0 g/dL (6.3-8.2)
[2025-02-04] MEDS: GABAPENTIN 100 MG CAPSULE FEED TUBE ×3 (09:02→17:44)
[2025-02-04] MEDS: PANTOPRAZOLE SODIUM IV 40 MG VIAL IV PUSH ×2 (09:02→20:47)
[2025-02-04] MEDS: ISOSORBIDE DINITRATE 10 MG TABLET FEED TUBE ×2 (09:02→12:40)
[2025-02-04] MEDS: LOSARTAN POTASSIUM 25 MG TABLET FEED TUBE (09:02)
[2025-02-04] MEDS: INSULIN GLARGINE (*BKC) 100 UNITS/ML 18 UNITS SUB-Q (09:03)
[2025-02-04] MEDS: ESCITALOPRAM OXALATE 10 MG TABLET FEED TUBE (09:05)
--- NOTE | 2025-02-04 11:42 | P.PNNP_ITS ---
Progress Note: A&P Assessment and Plan (1) End stage renal disease: Code(s): N18.6 - End stage renal disease Status: Chronic Assessment and Plan: * HD yesterday * continue //Wednesday dialysis schedule while hospitalized * follow electrolytes, volume status, and clearance * outpatient dialysis clinic = [facility] in * primary chairman = Dr. Odilon Tellez (2) DKA (diabetic ketoacidosis): Qualifiers: Diabetes mellitus complication detail: without coma Diabetes mellitus type: type 1 Qualified Code(s): E10.10 - Type 1 diabetes mellitus with ketoacidosis without coma Code(s): E11.10 - Type 2 diabetes mellitus with ketoacidosis without coma Status: Resolved Assessment and Plan: * resolved * as noted by evaluation in ER * recurrent and multiple ER visits/hospitalizations for this problems (usually gets most of her care at [facility] and more recently at [facility]) * s/p insulin gtt and weaned off * transitioned to SQ insulin (3) Nausea & vomiting: Qualifiers: Vomiting type: unspecified Qualified Code(s): R11.2 - Nausea with vomiting, unspecified Code(s): R11.2 - Nausea with vomiting, unspecified Status: Acute Assessment and Plan: * chronic and long standing issue (per patient and review of records) * cyclic in nature * thought to be secondary to diabetic gastroparesis * s/p recent G-J-tube placement to ensure adequate/supplemental nutrition given this issue * continue oral intake and supplement tube feeds as needed (4) Hyperkalemia: Code(s): E87.5 - Hyperkalemia Status: Acute Assessment and Plan: * resolved * as noted by admission labs and AM labs on 01/30 * corrected with dialysis * follow trend (5) Diabetic gastroparesis: Code(s): E11.43 - Type 2 diabetes mellitus with diabetic autonomic (poly)neuropathy; K31.84 - Gastroparesis Status: Acute Assessment and Plan: * known and long standing issue * likely precipiting factor for admission symptoms (6) Anemia: Code(s): D64.9 - Anemia, unspecified Status: Chronic Assessment and Plan: * due to ESRD * Epogen with HD * follow trend of H/H (7) Hypertension: Code(s): I10 - Essential (primary) hypertension Status: Chronic Assessment and Plan: * quite elevated on admission * elevated in AM and improves over the day * on home medications * consider titration of losartan versus isosorbide dinitrate as needed * follow trend of hemodynamics (8) Type 1 diabetes: Qualifiers: Diabetes mellitus complication status: with hyperglycemia Qualified Code(s): E10.65 - Type 1 diabetes mellitus with hyperglycemia Code(s): E10.9 - Type 1 diabetes mellitus without complications Status: Chronic Assessment and Plan: * see #1 * follow accu-cheks * on SQ insulin (SSI and Lantus) * glycemic control per hospitalist Will continue to follow. L Subjective Date/time seen: 02/04/25 11:42 Interval history: Follow-up for end stage renal disease on hemodialysis. Tolerated dialysis treatment yesterday without any issues or problems; still with intermittent abdominal pain and nausea but no apparent vomiting; no other apparent issues voiced when seen. Exam 2 Narrative: General: WD/WN female in NAD Heart: normal S1 and S2; no rub Lungs: decreased at bases Abdomen: soft, nontender, nondistended, positive bowel sounds Extremities: no cyanosis or clubbing; no edema Skin: warm and dry Objective Data Vital Signs Vital Signs: Vital Signs Temp Pulse Resp BP Pulse Ox O2 Del Method FiO2 02/04/25 11:00 88 02/04/25 09:29 97.2 F L 96 18 191/98 H 99 02/04/25 09:02 89 02/04/25 09:02 96 18 99 Room Air 28 02/04/25 09:00 97 02/04/25 06:00 97.6 F 90 16 184/97 H 99 02/04/25 04:00 85 02/04/25 00:00 90 02/03/25 21:57 97.5 F L 88 20 158/81 H 98 02/03/25 20:38 92 02/03/25 20:00 Room Air 02/03/25 20:00 93 02/03/25 16:00 88 Intake/Output Intake/Output: Intake & Output 02/01/25 02/02/25 02/03/25 02/04/25 23:59 23:59 23:59 23:59 Intake Total 720 881 9654 450 Output Total 3200 2000 Balance -2500 810 -650 450 Meds/Results Medications: Active Medications Generic Name Dose Route Start Last Admin Trade Name Freq PRN Reason Stop Dose Admin Acetaminophen 650 mg 02/02/25 09:12 Acetaminophen Elixir 325 Mg/10.15 Ml Udc FEED TUBE Q4H PRN Mild Pain (1-3) or Fever Amlodipine Besylate 10 mg 02/02/25 09:00 02/04/25 09:02 Amlodipine Besylate 10 Mg Tablet FEED TUBE 10 mg DAILY JAYME Administration Carvedilol 12.5 mg 02/02/25 09:00 02/04/25 09:00 Carvedilol 12.5 Mg Tablet FEED TUBE 12.5 mg Q12H JAYME Administration Dextrose 12.5 gm 01/30/25 14:22 02/01/25 04:39 Dextrose 50% 25 Gm/50 Ml Syringe IV PUSH 12.5 gm PRN PRN Administration Hypoglycemia Protocol Diazepam 5 mg 01/29/25 22:29 02/01/25 04:48 Diazepam Inj (*Crx) 10 Mg/2 Ml Syringe IV PUSH 5 mg Q6H PRN Administration Intractable nausea vomiting Diphenhydramine HCl 50 mg 02/03/25 10:47 02/04/25 12:46 Diphenhydramine Hcl Inj 50 Mg/Ml Vial IV PUSH 50 mg Q4H PRN Administration Itching Escitalopram Oxalate 10 mg 02/02/25 09:00 02/04/25 09:05 Escitalopram Oxalate 10 Mg Tablet FEED TUBE 10 mg DAILY JAYME Administration Gabapentin 100 mg 02/02/25 09:00 02/04/25 12:39 Gabapentin 100 Mg Capsule FEED TUBE 100 mg TID JAYME Administration Glucagon 1 mg 01/30/25 14:22 Glucagon For Inj 1 Mg Vial IM PRN PRN Hypoglycemia Protocol Glucose 15 gm 01/30/25 14:22 Glucose Oral Gel 15 Gm Of Glucse In 37.5 Gm Tube PO PRN PRN Hypoglycemia Protocol Heparin Sodium (Beef Lung) 50 units 01/31/25 09:00 02/04/25 12:47 Heparin Flush 50 Units/5 Ml Syringe IV PUSH Not Given QAM JAYME Heparin Sodium (Beef Lung) 50 units 01/30/25 10:15 02/04/25 12:47 Heparin Flush 50 Units/5 Ml Syringe IV PUSH 50 units PRN PRN Administration after intermittent infusion Heparin Sodium (Beef Lung) 50 units 01/30/25 10:15 Heparin Flush 50 Units/5 Ml Syringe IV PUSH PRN PRN after blood draws Heparin Sodium (Porcine) 5,000 units 01/30/25 09:00 02/04/25 11:19 Heparin Sodium 5,000 Units/Ml Vial SUB-Q Not Given Q12HR JAYME Heparin Sodium (Porcine) 500 units 01/30/25 10:15 Heparin Sodium Lock Flush 500 Units/5 Ml Syringe IV PUSH PRN PRN see comments below Hydromorphone HCl 0.5 mg 01/30/25 11:31 02/04/25 14:10 Hydromorphone Hcl Inj (*Crx) 1 Mg/Ml Syr IV PUSH 0.5 mg Q2H PRN Administration Pain Rated 7-10 Albumin Human 50 mls @ 999 mls/hr 01/30/25 05:27 Albutein IVPB 03/01/25 05:26 Q10M PRN HYPOTENSION Dextrose 1,000 mls @ 100 mls/hr 01/30/25 14:22 Dextrose 5% 1,000 Ml IVPB PRN PRN Hypoglycemia Protocol Insulin Aspart 3 units 02/01/25 18:00 02/04/25 05:57 Insulin Aspart (*Bkc) 100 Units/Ml SUB-Q 3 units TID@0000,0600,1800 JAYME Administration Insulin Aspart 2 - 5 units 02/02/25 08:00 02/04/25 12:33 Insulin Aspart (*Bkc) 100 Units/Ml SUB-Q 2 units TIDWM JAYME Administration Protocol Insulin Aspart 3 units 02/02/25 12:00 Insulin Aspart (*Bkc) 100 Units/Ml SUB-Q DAILY@1200 PRN ONLY IF PT EATS LUNCH Insulin Glargine 18 units 02/05/25 09:00 Insulin Glargine (*Bkc) 100 Units/Ml SUB-Q DAILY JAYME Isosorbide Dinitrate 20 mg 02/04/25 17:00 Isosorbide Dinitrate 20 Mg Tablet FEED TUBE TID JAYME Losartan Potassium 25 mg 02/02/25 09:00 02/04/25 09:02 Losartan Potassium 25 Mg Tablet FEED TUBE 25 mg DAILY JAYME Administration Miscellaneous Information 1 each 02/02/25 08:57 Pharmacist Communication Order XX 03/04/25 08:56 ONCE JAYME Ondansetron HCl 4 mg 01/30/25 18:35 Ondansetron Inj 4 Mg/2 Ml Vial IV PUSH Q4H PRN Nausea And Vomiting Pantoprazole Sodium 40 mg 01/30/25 09:00 02/04/25 09:02 Pantoprazole Sodium Iv 40 Mg Vial IV PUSH 40 mg Q12HR JAYME Administration Sodium Chloride 10 ml 01/30/25 14:00 02/04/25 06:03 Central Line Flush IV PUSH 10 ml Q8HR JAYME Administration Radiology Results: ITS Impressions Chest X-Ray 02/02/25 20:02 IMPRESSION: No acute pulmonary findings. Labs Labs: Laboratory Tests 02/04/25 05:36 02/04/25 05:36 Calcium 8.5 Magnesium 2.1 Total Bilirubin 0.2 AST 56 H ALT 52 H Alkaline Phosphatase 346 H Total Protein 7.0 Albumin 3.7
--- NOTE | 2025-02-04 13:05 | PM.IMPN ---
Progress Note: A&P Assessment and Plan (1) DKA, type 1: Qualifiers: Diabetes mellitus complication detail: without coma Qualified Code(s): E10.10 - Type 1 diabetes mellitus with ketoacidosis without coma Code(s): E10.10 - Type 1 diabetes mellitus with ketoacidosis without coma Status: Acute Assessment and Plan: Pt was not given given IVF due to ESRD Insulin infusion was started and Q1H glucose monitoring is being done. Now has been switched to basal bolus regimen Anion gap has now closed and patient has been transition to subcutaneous insulin Her metabolic acidosis anion gap was complicated by history of end-stage renal disease. fluctuating blood sugar Currently on Lantus 9 units at bedtime with 3 units t.i.d.. She takes 15 units Lantus at home Blood sugar trending up. Extra Lantus in a.m. 02/03/2025 Transition to a.m. Lantus 02/04/2025 (2) Nausea & vomiting: Qualifiers: Vomiting type: unspecified Qualified Code(s): R11.2 - Nausea with vomiting, unspecified Code(s): R11.2 - Nausea with vomiting, unspecified Status: Acute Assessment and Plan: History of chronic nausea vomiting. Currently feels better History of gastroparesis on GJ tube placement (3) End stage renal disease on dialysis: Code(s): N18.6 - End stage renal disease; Z99.2 - Dependence on renal dialysis Status: Acute Assessment and Plan: Inpatient dialysis per Nephrology (4) SIRS (systemic inflammatory response syndrome): Code(s): R65.10 - Systemic inflammatory response syndrome (SIRS) of non-infectious origin without acute organ dysfunction Status: Acute Assessment and Plan: Findings suggestive of sirs likely from DKA although blood cultures have been sent and are pending. Procalcitonin level is 2.5 but patient is afebrile with normal WBC count. Hold any antibiotics and monitor this time UA with 10-20 WBC. Urine culture mixed urogenital lupe 25-50 K (5) Hypertension: Code(s): I10 - Essential (primary) hypertension Status: Chronic Assessment and Plan: Continue Coreg amlodipine Imdur and Cozaar Imdur has been changed to isosorbide dinitrate per PEG (6) Type 1 diabetes: Qualifiers: Diabetes mellitus complication status: with hyperglycemia Qualified Code(s): E10.65 - Type 1 diabetes mellitus with hyperglycemia Code(s): E10.9 - Type 1 diabetes mellitus without complications Status: Chronic Assessment and Plan: Patient was started Lantus and sliding scale and on tube feeds. Adjust as needed Plan Abdominal pain persistent persistent nausea. Will get CT to further evaluate DVT prophylaxis -heparin subQ Stress ulcer prophylaxis -protonix Nutrition -continue Tube Feeds Code Status - Full Code Subjective Date/time seen: 02/04/25 13:05 Interval history: Patient reported rough night. Continues to have abdominal pain and some nausea. Blood sugar trend reviewed. Review of Systems Review of Systems: All systems reviewed & are unremarkable except as noted in HPI and below (HPI) Exam Narrative: Patient is comfortable, NAD HEENT: eyes are clear and none icteric LUNGS:CTA HEART: RR S1S2 ABD: BS+, Soft and nontender G-tube in-situ Lower extremities: no edema SKIN: nonjaundiced Neuro: grossly intact. Objective Data Vital Signs Vital Signs: Vital Signs - 24 hr 02/03/25 14:18 02/03/25 16:00 02/03/25 20:00 Temperature 97.4 F L Pulse Rate 95 88 93 Respiratory Rate 18 Blood Pressure 161/83 H Pulse Oximetry 100 Oxygen Delivery Fraction of Inspired Oxygen 02/03/25 20:00 02/03/25 20:38 02/03/25 21:57 Temperature 97.5 F L Pulse Rate 92 88 Respiratory Rate 20 Blood Pressure 158/81 H Pulse Oximetry 98 Oxygen Delivery Room Air Fraction of Inspired Oxygen 02/04/25 00:00 02/04/25 04:00 02/04/25 06:00 Temperature 97.6 F Pulse Rate 90 85 90 Respiratory Rate 16 Blood Pressure 184/97 H Pulse Oximetry 99 Oxygen Delivery Fraction of Inspired Oxygen 02/04/25 09:00 02/04/25 09:02 02/04/25 09:02 Temperature Pulse Rate 97 96 89 Respiratory Rate 18 Blood Pressure Pulse Oximetry 99 Oxygen Delivery Room Air Fraction of Inspired Oxygen 28 02/04/25 09:29 Temperature 97.2 F L Pulse Rate 96 Respiratory Rate 18 Blood Pressure 191/98 H Pulse Oximetry 99 Oxygen Delivery Fraction of Inspired Oxygen Intake/Output Intake/Output: Intake & Output 02/01/25 02/02/25 02/03/25 02/04/25 23:59 23:59 23:59 23:59 Intake Total 635 762 9349 330 Output Total 3200 2000 Balance -2500 810 -650 330 Meds/Results Medications: Active Medications Generic Name Dose Route Start Last Admin Trade Name Freq PRN Reason Stop Dose Admin Acetaminophen 650 mg 02/02/25 09:12 Acetaminophen Elixir 325 Mg/10.15 Ml Udc FEED TUBE Q4H PRN Mild Pain (1-3) or Fever Amlodipine Besylate 10 mg 02/02/25 09:00 02/04/25 09:02 Amlodipine Besylate 10 Mg Tablet FEED TUBE 10 mg DAILY JAYME Administration Carvedilol 12.5 mg 02/02/25 09:00 02/04/25 09:00 Carvedilol 12.5 Mg Tablet FEED TUBE 12.5 mg Q12H JAYME Administration Dextrose 12.5 gm 01/30/25 14:22 02/01/25 04:39 Dextrose 50% 25 Gm/50 Ml Syringe IV PUSH 12.5 gm PRN PRN Administration Hypoglycemia Protocol Diazepam 5 mg 01/29/25 22:29 02/01/25 04:48 Diazepam Inj (*Crx) 10 Mg/2 Ml Syringe IV PUSH 5 mg Q6H PRN Administration Intractable nausea vomiting Diphenhydramine HCl 50 mg 02/03/25 10:47 02/04/25 12:46 Diphenhydramine Hcl Inj 50 Mg/Ml Vial IV PUSH 50 mg Q4H PRN Administration Itching Escitalopram Oxalate 10 mg 02/02/25 09:00 02/04/25 09:05 Escitalopram Oxalate 10 Mg Tablet FEED TUBE 10 mg DAILY JAYME Administration Gabapentin 100 mg 02/02/25 09:00 02/04/25 12:39 Gabapentin 100 Mg Capsule FEED TUBE 100 mg TID JAYME Administration Glucagon 1 mg 01/30/25 14:22 Glucagon For Inj 1 Mg Vial IM PRN PRN Hypoglycemia Protocol Glucose 15 gm 01/30/25 14:22 Glucose Oral Gel 15 Gm Of Glucse In 37.5 Gm Tube PO PRN PRN Hypoglycemia Protocol Heparin Sodium (Beef Lung) 50 units 01/31/25 09:00 02/04/25 12:47 Heparin Flush 50 Units/5 Ml Syringe IV PUSH Not Given QAM JAYME Heparin Sodium (Beef Lung) 50 units 01/30/25 10:15 02/04/25 12:47 Heparin Flush 50 Units/5 Ml Syringe IV PUSH 50 units PRN PRN Administration after intermittent infusion Heparin Sodium (Beef Lung) 50 units 01/30/25 10:15 Heparin Flush 50 Units/5 Ml Syringe IV PUSH PRN PRN after blood draws Heparin Sodium (Porcine) 5,000 units 01/30/25 09:00 02/04/25 11:19 Heparin Sodium 5,000 Units/Ml Vial SUB-Q Not Given Q12HR JAYME Heparin Sodium (Porcine) 500 units 01/30/25 10:15 Heparin Sodium Lock Flush 500 Units/5 Ml Syringe IV PUSH PRN PRN see comments below Hydromorphone HCl 0.5 mg 01/30/25 11:31 02/04/25 11:15 Hydromorphone Hcl Inj (*Crx) 1 Mg/Ml Syr IV PUSH 0.5 mg Q2H PRN Administration Pain Rated 7-10 Albumin Human 50 mls @ 999 mls/hr 01/30/25 05:27 Albutein IVPB 03/01/25 05:26 Q10M PRN HYPOTENSION Dextrose 1,000 mls @ 100 mls/hr 01/30/25 14:22 Dextrose 5% 1,000 Ml IVPB PRN PRN Hypoglycemia Protocol Insulin Aspart 3 units 02/01/25 18:00 02/04/25 05:57 Insulin Aspart (*Bkc) 100 Units/Ml SUB-Q 3 units TID@0000,0600,1800 JAYME Administration Insulin Aspart 2 - 5 units 02/02/25 08:00 02/04/25 12:33 Insulin Aspart (*Bkc) 100 Units/Ml SUB-Q 2 units TIDWM JAYME Administration Protocol Insulin Aspart 3 units 02/02/25 12:00 Insulin Aspart (*Bkc) 100 Units/Ml SUB-Q DAILY@1200 PRN ONLY IF PT EATS LUNCH Isosorbide Dinitrate 10 mg 02/02/25 11:10 02/04/25 12:40 Isosorbide Dinitrate 10 Mg Tablet FEED TUBE 10 mg TID JAYME Administration Losartan Potassium 25 mg 02/02/25 09:00 02/04/25 09:02 Losartan Potassium 25 Mg Tablet FEED TUBE 25 mg DAILY JAYME Administration Miscellaneous Information 1 each 02/02/25 08:57 Pharmacist Communication Order XX 03/04/25 08:56 ONCE JAYME Ondansetron HCl 4 mg 01/30/25 18:35 Ondansetron Inj 4 Mg/2 Ml Vial IV PUSH Q4H PRN Nausea And Vomiting Pantoprazole Sodium 40 mg 01/30/25 09:00 02/04/25 09:02 Pantoprazole Sodium Iv 40 Mg Vial IV PUSH 40 mg Q12HR JAYME Administration Sodium Chloride 10 ml 01/30/25 14:00 02/04/25 06:03 Central Line Flush IV PUSH 10 ml Q8HR JAYME Administration Radiology Results: ITS Impressions Chest X-Ray 02/02/25 20:02 IMPRESSION: No acute pulmonary findings. Labs Labs: Laboratory Results - last 24 hr 02/03/25 02/03/25 02/04/25 16:59 21:25 00:04 WBC RBC Hgb Hct MCV MCH MCHC RDW Plt Count MPV Sodium Potassium Chloride Carbon Dioxide Anion Gap BUN Creatinine Estim Creat Clear Calc Estimated GFR Glucose POC Capillary Glucose 192 H 318 H 436 H Calcium Magnesium Total Bilirubin AST ALT Alkaline Phosphatase Total Protein Albumin 02/04/25 02/04/25 02/04/25 02:01 03:00 05:36 WBC 5.9 RBC 3.15 L Hgb 9.0 L Hct 29.6 L MCV 94.0 MCH 28.6 MCHC 30.4 L RDW 15.5 H Plt Count 212 MPV 10.7 H Sodium 135 L Potassium 4.7 Chloride 97 L Carbon Dioxide 30 Anion Gap 8 BUN 33 H D Creatinine 4.17 H Estim Creat Clear Calc 16 Estimated GFR 13 L Glucose 412 H POC Capillary Glucose 379 H 347 H Calcium 8.5 Magnesium 2.1 Total Bilirubin 0.2 AST 56 H ALT 52 H Alkaline Phosphatase 346 H Total Protein 7.0 Albumin 3.7 02/04/25 02/04/25 02/04/25 05:43 08:10 12:09 WBC RBC Hgb Hct MCV MCH MCHC RDW Plt Count MPV Sodium Potassium Chloride Carbon Dioxide Anion Gap BUN Creatinine Estim Creat Clear Calc Estimated GFR Glucose POC Capillary Glucose 400 H 347 H 223 H Calcium Magnesium Total Bilirubin AST ALT Alkaline Phosphatase Total Protein Albumin
[2025-02-04] MEDS: ISOSORBIDE DINITRATE 20 MG TABLET FEED TUBE (17:45)
[2025-02-05] VITALS (11 sets, daily range): BP systolic 159–185; BP diastolic 83–95; PULSE 85–99; RESP 14–18; TEMP 36.4–36.8; O2SAT 95–100
[2025-02-05] MEDS: HYDROmorphone HCL INJ (*CRX) 1 MG/ML SYR 0.5 MG IV PUSH ×8 (01:21→22:30)
[2025-02-05] MEDS: CENTRAL LINE FLUSH 10 ML IV PUSH ×3 (05:25→21:13)
[2025-02-05] MEDS: INSULIN ASPART (*BKC) 100 UNITS/ML SUB-Q ×4 (05:59→18:36)
[2025-02-05] MEDS: ISOSORBIDE DINITRATE 20 MG TABLET FEED TUBE ×3 (08:56→17:05)
[2025-02-05] MEDS: ESCITALOPRAM OXALATE 10 MG TABLET FEED TUBE (08:56)
[2025-02-05] MEDS: LOSARTAN POTASSIUM 25 MG TABLET FEED TUBE (08:56)
[2025-02-05] MEDS: GABAPENTIN 100 MG CAPSULE FEED TUBE ×3 (08:56→17:05)
[2025-02-05] MEDS: PANTOPRAZOLE SODIUM IV 40 MG VIAL IV PUSH ×2 (08:57→21:08)
[2025-02-05] MEDS: INSULIN GLARGINE (*BKC) 100 UNITS/ML 18 UNITS SUB-Q (09:04)
[2025-02-05 09:21] LABS: Hematocrit 28.6 % (37.0-47.0); Hemoglobin 8.8 g/dL (12.0-15.0); Immature Granulocyte Percent A 0.4 % (0-0.5); Lymphocytes Absolute Auto 1.37 K/mm3 (0.9-3.2); Mean Corpuscular HGB Conc 30.8 g/dl (32-36); Mean Corpuscular Hemoglobin 28.9 pg (26-34); Mean Corpuscular Volume 94.1 fl (80-100); Nucleated Red Blood Cells Absolute Auto 0.000 K/mm3 (0.0-0.012); Nucleated Red Blood Cells Perc 0.0 % (0.0-0.2); Platelet Count Result 235 k/mm3 (150-375); Red Blood Count 3.04 M/mm3 (4.2-5.4); White Blood Count 5.6 K/mm3 (4.5-10.0)
[2025-02-05 09:49] LABS: Alanine Aminotransferase 69 U/L (6-35); Albumin Level 3.7 g/dL (3.5-5.1); Alkaline Phosphatase 327 U/L (38-126); Anion Gap 7 mmol/L (4-12); Aspartate Amino Transferase 68 U/L (14-36); Bilirubin,Total 0.3 mg/dL (0.2-1.3); Blood Urea Nitrogen 52 mg/dL (7-17); Calcium 8.6 mg/dL (8.4-10.2); Carbon Dioxide 30 mmol/L (22-30); Chloride 99 mmol/L (98-107); Estimated CRCL calculation 13 ml/min; Estimated Glomerular Filt Rate 9; Glucose 228 mg/dL (65-110); Magnesium 2.4 mg/dL (1.6-2.3); Potassium 5.1 mmol/L (3.4-5.0); Sodium 136 mmol/L (137-145); Total Protein 7.0 g/dL (6.3-8.2)
--- NOTE | 2025-02-05 11:04 | P.PNNP_ITS ---
Progress Note: A&P Assessment and Plan (1) End stage renal disease: Code(s): N18.6 - End stage renal disease Status: Chronic Assessment and Plan: * HD tomorrow * continue //Wednesday dialysis schedule while hospitalized * follow electrolytes, volume status, and clearance * outpatient dialysis clinic = [facility] in * primary recordings librarian = Dr. Odilon Tellez (2) DKA (diabetic ketoacidosis): Qualifiers: Diabetes mellitus complication detail: without coma Diabetes mellitus type: type 1 Qualified Code(s): E10.10 - Type 1 diabetes mellitus with ketoacidosis without coma Code(s): E11.10 - Type 2 diabetes mellitus with ketoacidosis without coma Status: Resolved Assessment and Plan: * resolved * as noted by evaluation in ER * recurrent and multiple ER visits/hospitalizations for this problems (usually gets most of her care at [facility] and more recently at [facility]) * s/p insulin gtt and weaned off * transitioned to SQ insulin (3) Nausea & vomiting: Qualifiers: Vomiting type: unspecified Qualified Code(s): R11.2 - Nausea with vomiting, unspecified Code(s): R11.2 - Nausea with vomiting, unspecified Status: Acute Assessment and Plan: * chronic and long standing issue (per patient and review of records) * cyclic in nature * thought to be secondary to diabetic gastroparesis * s/p recent G-J-tube placement to ensure adequate/supplemental nutrition given this issue * continue oral intake and supplement tube feeds as needed (4) Hyperkalemia: Code(s): E87.5 - Hyperkalemia Status: Acute Assessment and Plan: * resolved * as noted by admission labs and AM labs on 01/30 * corrected with dialysis * follow trend (5) Diabetic gastroparesis: Code(s): E11.43 - Type 2 diabetes mellitus with diabetic autonomic (poly)neuropathy; K31.84 - Gastroparesis Status: Acute Assessment and Plan: * known and long standing issue * likely precipiting factor for admission symptoms (6) Anemia: Code(s): D64.9 - Anemia, unspecified Status: Chronic Assessment and Plan: * due to ESRD * Epogen with HD * follow trend of H/H (7) Hypertension: Code(s): I10 - Essential (primary) hypertension Status: Chronic Assessment and Plan: * quite elevated on admission * elevated in AM and improves over the day * on home medications * consider titration of losartan versus isosorbide dinitrate as needed * follow trend of hemodynamics (8) Type 1 diabetes: Qualifiers: Diabetes mellitus complication status: with hyperglycemia Qualified Code(s): E10.65 - Type 1 diabetes mellitus with hyperglycemia Code(s): E10.9 - Type 1 diabetes mellitus without complications Status: Chronic Assessment and Plan: * see #1 * follow accu-cheks * on SQ insulin (SSI and Lantus) * glycemic control per hospitalist Will continue to follow. L Subjective Date/time seen: 02/05/25 11:04 Interval history: Follow-up for end stage renal disease on hemodialysis. Still with persistent abdominal discomfort with associated nausea; recent CT scan results noted; no other issues/events overnight or earlier this morning; no other acute complaints voiced. Exam 2 Narrative: General: WD/WN female in NAD Heart: normal S1 and S2; no rub Lungs: decreased at bases Abdomen: soft, nontender, nondistended, positive bowel sounds Extremities: no cyanosis or clubbing; no edema Skin: warm and dry Objective Data Vital Signs Vital Signs: Vital Signs Temp Pulse Resp BP Pulse Ox O2 Del Method 02/05/25 10:14 97.5 F L 92 14 174/92 H 100 02/05/25 09:30 Room Air 02/05/25 08:56 92 02/05/25 08:00 92 02/05/25 06:00 98.2 F 93 18 185/95 H 98 02/05/25 04:00 85 02/05/25 00:00 87 02/04/25 21:23 98.5 F 102 H 20 187/96 H 98 02/04/25 20:46 92 02/04/25 20:00 102 H 02/04/25 20:00 Room Air Intake/Output Intake/Output: Intake & Output 02/02/25 02/03/25 02/04/25 02/05/25 23:59 23:59 23:59 23:59 Intake Total 810 1350 1445 960 Output Total 1999 Balance 810 -650 1445 960 Meds/Results Medications: Active Medications Generic Name Dose Route Start Last Admin Trade Name Freq PRN Reason Stop Dose Admin Acetaminophen 650 mg 10/17/25 09:12 Acetaminophen Elixir 325 Mg/10.15 Ml Udc FEED TUBE Q4H PRN Mild Pain (1-3) or Fever Amlodipine Besylate 10 mg 02/02/25 09:00 02/05/25 08:56 Amlodipine Besylate 10 Mg Tablet FEED TUBE 10 mg DAILY JAYME Administration Carvedilol 12.5 mg 02/02/25 09:00 02/05/25 08:56 Carvedilol 12.5 Mg Tablet FEED TUBE 12.5 mg Q12H JAYME Administration Dextrose 12.5 gm 01/30/25 14:22 02/01/25 04:39 Dextrose 50% 25 Gm/50 Ml Syringe IV PUSH 12.5 gm PRN PRN Administration Hypoglycemia Protocol Diazepam 5 mg 01/29/25 22:29 02/01/25 04:48 Diazepam Inj (*Crx) 10 Mg/2 Ml Syringe IV PUSH 5 mg Q6H PRN Administration Intractable nausea vomiting Diphenhydramine HCl 50 mg 02/03/25 10:47 02/05/25 17:04 Diphenhydramine Hcl Inj 50 Mg/Ml Vial IV PUSH 50 mg Q4H PRN Administration Itching Escitalopram Oxalate 10 mg 02/02/25 09:00 02/05/25 08:56 Escitalopram Oxalate 10 Mg Tablet FEED TUBE 10 mg DAILY JAYME Administration Gabapentin 100 mg 02/02/25 09:00 02/05/25 17:05 Gabapentin 100 Mg Capsule FEED TUBE 100 mg TID JAYME Administration Glucagon 1 mg 01/30/25 14:22 Glucagon For Inj 1 Mg Vial IM PRN PRN Hypoglycemia Protocol Glucose 15 gm 01/30/25 14:22 Glucose Oral Gel 15 Gm Of Glucse In 37.5 Gm Tube PO PRN PRN Hypoglycemia Protocol Heparin Sodium (Beef Lung) 50 units 01/31/25 09:00 02/05/25 08:57 Heparin Flush 50 Units/5 Ml Syringe IV PUSH 50 units QAM JAYME Administration Heparin Sodium (Beef Lung) 50 units 01/30/25 10:15 02/04/25 12:47 Heparin Flush 50 Units/5 Ml Syringe IV PUSH 50 units PRN PRN Administration after intermittent infusion Heparin Sodium (Beef Lung) 50 units 01/30/25 10:15 Heparin Flush 50 Units/5 Ml Syringe IV PUSH PRN PRN after blood draws Heparin Sodium (Porcine) 5,000 units 01/30/25 09:00 02/05/25 08:57 Heparin Sodium 5,000 Units/Ml Vial SUB-Q Not Given Q12HR [facility] Heparin Sodium (Porcine) 500 units 01/30/25 10:15 Heparin Sodium Lock Flush 500 Units/5 Ml Syringe IV PUSH PRN PRN see comments below Hydromorphone HCl 0.5 mg 01/30/25 11:31 02/05/25 17:19 Hydromorphone Hcl Inj (*Crx) 1 Mg/Ml Syr IV PUSH 0.5 mg Q2H PRN Administration Pain Rated 7-10 Albumin Human 50 mls @ 999 mls/hr 01/30/25 05:27 Albutein IVPB 03/01/25 05:26 Q10M PRN HYPOTENSION Dextrose 1,000 mls @ 100 mls/hr 01/30/25 14:22 Dextrose 5% 1,000 Ml IVPB PRN PRN Hypoglycemia Protocol Ceftriaxone Sodium 1 gm/ 50 mls @ 100 mls/hr 02/05/25 15:00 02/05/25 15:29 Sodium Chloride IVPB Infused Q24H [facility] Infusion Doxycycline Hyclate 100 mg/ 100 mls @ 100 mls/hr 02/05/25 21:00 Sodium Chloride IVPB Q12HR [facility] Insulin Aspart 3 units 02/01/25 18:00 02/05/25 18:36 Insulin Aspart (*Bkc) 100 Units/Ml SUB-Q 3 units TID@0000,0600,1800 [facility] Administration Insulin Aspart 2 - 5 units 02/02/25 08:00 02/05/25 17:07 Insulin Aspart (*Bkc) 100 Units/Ml SUB-Q Not Given TIDWM [facility] Protocol Insulin Aspart 3 units 02/02/25 12:00 Insulin Aspart (*Bkc) 100 Units/Ml SUB-Q DAILY@1200 PRN ONLY IF PT EATS LUNCH Insulin Glargine 18 units 02/05/25 09:00 02/05/25 09:04 Insulin Glargine (*Bkc) 100 Units/Ml SUB-Q 18 units DAILY JAYME Administration Isosorbide Dinitrate 20 mg 02/04/25 17:00 02/05/25 17:05 Isosorbide Dinitrate 20 Mg Tablet FEED TUBE 20 mg TID [facility] Administration Losartan Potassium 25 mg 02/02/25 09:00 02/05/25 08:56 Losartan Potassium 25 Mg Tablet FEED TUBE 25 mg DAILY JAYME Administration Miscellaneous Information 1 each 02/02/25 08:57 Pharmacist Communication Order XX 03/04/25 08:56 ONCE JAYME Ondansetron HCl 4 mg 01/30/25 18:35 Ondansetron Inj 4 Mg/2 Ml Vial IV PUSH Q4H PRN Nausea And Vomiting Pantoprazole Sodium 40 mg 01/30/25 09:00 02/05/25 08:57 Pantoprazole Sodium Iv 40 Mg Vial IV PUSH 40 mg Q12HR JAYME Administration Sodium Chloride 10 ml 01/30/25 14:00 02/05/25 13:21 Central Line Flush IV PUSH 10 ml Q8HR JAYME Administration Radiology Results: ITS Impressions Chest X-Ray 02/02/25 20:02 IMPRESSION: No acute pulmonary findings. Chest/Abdomen/Pelvis CT 02/05/25 07:39 IMPRESSION: 1. Persistent airspace and groundglass opacities in left lung lower lobe with volume loss, consistent with pneumonia versus atelectasis/scarring. 2. Mild mediastinal, retroperitoneal, and pelvic lymphadenopathy, likely reactive. Labs Labs: Laboratory Tests 02/05/25 09:15 02/05/25 09:15 Calcium 8.6 Magnesium 2.4 H Total Bilirubin 0.3 AST 68 H ALT 69 H Alkaline Phosphatase 327 H Total Protein 7.0 Albumin 3.7 Microbiology 01/29/25 23:30 Blood Blood Culture - Final 01/29/25 23:31 Blood Blood Culture - Final
--- NOTE | 2025-02-05 12:41 | PC.NURSE ---
On 02/05/25, the student, Reynold Adams, provided care and completed [facility] documentation on this patient. I have reviewed the student's documentation and agree with the findings.
[2025-02-05] MEDS: cefTRIAXone 1 GM in SODIUM CHLORIDE 0.9% IV 50 ML 100 ML IVPB (14:59)
--- NOTE | 2025-02-05 15:50 | P.PNIM_ITS ---
Progress Note: A&P Assessment and Plan (1) DKA, type 1: Qualifiers: Diabetes mellitus complication detail: without coma Qualified Code(s): E10.10 - Type 1 diabetes mellitus with ketoacidosis without coma Code(s): E10.10 - Type 1 diabetes mellitus with ketoacidosis without coma Status: Acute Assessment and Plan: Pt was not given given IVF due to ESRD Insulin infusion was started and Q1H glucose monitoring is being done. Now has been switched to basal bolus regimen Anion gap has now closed and patient has been transition to subcutaneous insulin Her metabolic acidosis anion gap was complicated by history of end-stage renal disease. fluctuating blood sugar Currently on Lantus 9 units at bedtime with 3 units t.i.d.. She takes 15 units Lantus at home Blood sugar trending up. Extra Lantus in a.m. 02/03/2025 Transition to a.m. Lantus 02/04/2025 (2) Nausea & vomiting: Qualifiers: Vomiting type: unspecified Qualified Code(s): R11.2 - Nausea with vomiting, unspecified Code(s): R11.2 - Nausea with vomiting, unspecified Status: Acute Assessment and Plan: History of chronic nausea vomiting. Currently feels better History of gastroparesis on GJ tube placement On tube feeds at night (3) End stage renal disease on dialysis: Code(s): N18.6 - End stage renal disease; Z99.2 - Dependence on renal dialysis Status: Acute Assessment and Plan: Inpatient dialysis per Nephrology (4) SIRS (systemic inflammatory response syndrome): Code(s): R65.10 - Systemic inflammatory response syndrome (SIRS) of non-infectious origin without acute organ dysfunction Status: Acute Assessment and Plan: Findings suggestive of sirs likely from DKA although blood cultures have been sent and are pending. Procalcitonin level is 2.5 but patient is afebrile with normal WBC count. Hold any antibiotics and monitor this time UA with 10-20 WBC. Urine culture mixed urogenital lupe 25-[address] with findings of left lower lobe pneumonia. Start ceftriaxone and doxycycline 02/05/25 (5) Hypertension: Code(s): I10 - Essential (primary) hypertension Status: Chronic Assessment and Plan: Continue Coreg amlodipine Imdur and Cozaar Imdur has been changed to isosorbide dinitrate per PEG Increase dose to 20 b.i.d. (6) Type 1 diabetes: Qualifiers: Diabetes mellitus complication status: with hyperglycemia Qualified Code(s): E10.65 - Type 1 diabetes mellitus with hyperglycemia Code(s): E10.9 - Type 1 diabetes mellitus without complications Status: Chronic Assessment and Plan: Patient was started Lantus and sliding scale and on tube feeds. Adjust as needed Plan Abdominal pain persistent persistent nausea. CT with no acute intra-abdominal findings. Does have left lower lobe pneumonia which could be the reason for epigastric pain. DVT prophylaxis -heparin subQ Stress ulcer prophylaxis -protonix Nutrition -continue Tube Feeds Code Status - Full Code Subjective Date/time seen: 02/05/25 15:50 Interval history: No overnight events continues to have some nausea and bloating sensation. Getting tube feed. CT reviewed with the patient. Review of Systems Review of Systems: All systems reviewed & are unremarkable except as noted in HPI and below (HPI) Exam Narrative: Patient is comfortable, NAD HEENT: eyes are clear and none icteric LUNGS:CTA HEART: RR S1S2 ABD: BS+, Soft and nontender G-tube in-situ Lower extremities: no edema SKIN: nonjaundiced Neuro: grossly intact. Objective Data Vital Signs Vital Signs: Vital Signs - 24 hr 02/04/25 16:00 02/04/25 20:00 02/04/25 20:00 Temperature Pulse Rate 86 102 H Respiratory Rate Blood Pressure Pulse Oximetry Oxygen Delivery Room Air 02/04/25 20:46 02/04/25 21:23 02/05/25 00:00 Temperature 98.5 F Pulse Rate 92 102 H 87 Respiratory Rate 20 Blood Pressure 187/96 H Pulse Oximetry 98 Oxygen Delivery 02/05/25 04:00 02/05/25 06:00 02/05/25 08:00 Temperature 98.2 F Pulse Rate 85 93 92 Respiratory Rate 18 Blood Pressure 185/95 H Pulse Oximetry 98 Oxygen Delivery 02/05/25 08:56 02/05/25 09:30 02/05/25 10:14 Temperature 97.5 F L Pulse Rate 92 92 Respiratory Rate 14 Blood Pressure 174/92 H Pulse Oximetry 100 Oxygen Delivery Room Air 02/05/25 12:00 02/05/25 13:40 Temperature 98.1 F Pulse Rate 99 93 Respiratory Rate Blood Pressure 159/83 H Pulse Oximetry 99 Oxygen Delivery Intake/Output Intake/Output: Intake & Output 02/02/25 02/03/25 02/04/25 02/05/25 23:59 23:59 23:59 23:59 Intake Total 810 1350 1445 600 Output Total 1999 Balance 810 -650 1445 600 Meds/Results Medications: Active Medications Generic Name Dose Route Start Last Admin Trade Name Freq PRN Reason Stop Dose Admin Acetaminophen 650 mg 02/02/25 09:12 Acetaminophen Elixir 325 Mg/10.15 Ml Udc FEED TUBE Q4H PRN Mild Pain (1-3) or Fever Amlodipine Besylate 10 mg 02/02/25 09:00 02/05/25 08:56 Amlodipine Besylate 10 Mg Tablet FEED TUBE 10 mg DAILY JAYME Administration Carvedilol 12.5 mg 02/02/25 09:00 02/05/25 08:56 Carvedilol 12.5 Mg Tablet FEED TUBE 12.5 mg Q12H JAYME Administration Dextrose 12.5 gm 01/30/25 14:22 02/01/25 04:39 Dextrose 50% 25 Gm/50 Ml Syringe IV PUSH 12.5 gm PRN PRN Administration Hypoglycemia Protocol Diazepam 5 mg 01/29/25 22:29 02/01/25 04:48 Diazepam Inj (*Crx) 10 Mg/2 Ml Syringe IV PUSH 5 mg Q6H PRN Administration Intractable nausea vomiting Diphenhydramine HCl 50 mg 02/03/25 10:47 02/05/25 13:20 Diphenhydramine Hcl Inj 50 Mg/Ml Vial IV PUSH 50 mg Q4H PRN Administration Itching Escitalopram Oxalate 10 mg 02/02/25 09:00 02/05/25 08:56 Escitalopram Oxalate 10 Mg Tablet FEED TUBE 10 mg DAILY JAYME Administration Gabapentin 100 mg 02/02/25 09:00 02/05/25 12:25 Gabapentin 100 Mg Capsule FEED TUBE 100 mg TID JAYME Administration Glucagon 1 mg 01/30/25 14:22 Glucagon For Inj 1 Mg Vial IM PRN PRN Hypoglycemia Protocol Glucose 15 gm 01/30/25 14:22 Glucose Oral Gel 15 Gm Of Glucse In 37.5 Gm Tube PO PRN PRN Hypoglycemia Protocol Heparin Sodium (Beef Lung) 50 units 01/31/25 09:00 02/05/25 08:57 Heparin Flush 50 Units/5 Ml Syringe IV PUSH 50 units QAM JAYME Administration Heparin Sodium (Beef Lung) 50 units 01/30/25 10:15 02/04/25 12:47 Heparin Flush 50 Units/5 Ml Syringe IV PUSH 50 units PRN PRN Administration after intermittent infusion Heparin Sodium (Beef Lung) 50 units 01/30/25 10:15 Heparin Flush 50 Units/5 Ml Syringe IV PUSH PRN PRN after blood draws Heparin Sodium (Porcine) 5,000 units 01/30/25 09:00 02/05/25 08:57 Heparin Sodium 5,000 Units/Ml Vial SUB-Q Not Given Q12HR [facility] Heparin Sodium (Porcine) 500 units 01/30/25 10:15 Heparin Sodium Lock Flush 500 Units/5 Ml Syringe IV PUSH PRN PRN see comments below Hydromorphone HCl 0.5 mg 01/30/25 11:31 02/05/25 14:03 Hydromorphone Hcl Inj (*Crx) 1 Mg/Ml Syr IV PUSH 0.5 mg Q2H PRN Administration Pain Rated 7-10 Albumin Human 50 mls @ 999 mls/hr 01/30/25 05:27 Albutein IVPB 03/01/25 05:26 Q10M PRN HYPOTENSION Dextrose 1,000 mls @ 100 mls/hr 01/30/25 14:22 Dextrose 5% 1,000 Ml IVPB PRN PRN Hypoglycemia Protocol Ceftriaxone Sodium 1 gm/ 50 mls @ 100 mls/hr 02/05/25 15:00 02/05/25 15:29 Sodium Chloride IVPB Infused Q24H JAYME Infusion Doxycycline Hyclate 100 mg/ 100 mls @ 100 mls/hr 02/05/25 21:00 Sodium Chloride IVPB Q12HR [facility] Insulin Aspart 3 units 02/01/25 18:00 02/05/25 05:59 Insulin Aspart (*Bkc) 100 Units/Ml SUB-Q 3 units TID@0000,0600,1800 JAYME Administration Insulin Aspart 2 - 5 units 02/02/25 08:00 02/05/25 11:30 Insulin Aspart (*Bkc) 100 Units/Ml SUB-Q Not Given TIDWM [facility] Protocol Insulin Aspart 3 units 02/02/25 12:00 Insulin Aspart (*Bkc) 100 Units/Ml SUB-Q DAILY@1200 PRN ONLY IF PT EATS LUNCH Insulin Glargine 18 units 02/05/25 09:00 02/05/25 09:04 Insulin Glargine (*Bkc) 100 Units/Ml SUB-Q 18 units DAILY JAYME Administration Isosorbide Dinitrate 20 mg 02/04/25 17:00 02/05/25 12:25 Isosorbide Dinitrate 20 Mg Tablet FEED TUBE 20 mg TID JAYME Administration Losartan Potassium 25 mg 02/02/25 09:00 02/05/25 08:56 Losartan Potassium 25 Mg Tablet FEED TUBE 25 mg DAILY JAYME Administration Miscellaneous Information 1 each 02/02/25 08:57 Pharmacist Communication Order XX 03/04/25 08:56 ONCE JAYME Ondansetron HCl 4 mg 01/30/25 18:35 Ondansetron Inj 4 Mg/2 Ml Vial IV PUSH Q4H PRN Nausea And Vomiting Pantoprazole Sodium 40 mg 01/30/25 09:00 02/05/25 08:57 Pantoprazole Sodium Iv 40 Mg Vial IV PUSH 40 mg Q12HR JAYME Administration Sodium Chloride 10 ml 01/30/25 14:00 02/05/25 13:21 Central Line Flush IV PUSH 10 ml Q8HR JAYME Administration Radiology Results: ITS Impressions Chest X-Ray 02/02/25 20:02 IMPRESSION: No acute pulmonary findings. Chest/Abdomen/Pelvis CT 02/05/25 07:39 IMPRESSION: 1. Persistent airspace and groundglass opacities in left lung lower lobe with volume loss, consistent with pneumonia versus atelectasis/scarring. 2. Mild mediastinal, retroperitoneal, and pelvic lymphadenopathy, likely reactive. Labs Labs: Laboratory Results - last 24 hr 02/04/25 02/04/25 02/04/25 16:27 17:57 19:46 WBC RBC Hgb Hct MCV MCH MCHC RDW Plt Count MPV Immature Gran % (Auto) Neut % (Auto) Lymph % (Auto) Johnston % (Auto) Eos % (Auto) Baso % (Auto) Lymph # (Auto) Johnston # (Auto) Eos # (Auto) Baso # (Auto) Abs Immat Gran (auto) Absolute Neuts (auto) Absolute Nucleated RBC Nucleated RBC % Sodium Potassium Chloride Carbon Dioxide Anion Gap BUN Creatinine Estim Creat Clear Calc Estimated GFR Glucose POC Capillary Glucose 88 149 H 158 H Calcium Magnesium Total Bilirubin AST ALT Alkaline Phosphatase Total Protein Albumin 02/04/25 02/05/25 02/05/25 23:35 02:08 03:30 WBC RBC Hgb Hct MCV MCH MCHC RDW Plt Count MPV Immature Gran % (Auto) Neut % (Auto) Lymph % (Auto) Johnston % (Auto) Eos % (Auto) Baso % (Auto) Lymph # (Auto) Johnston # (Auto) Eos # (Auto) Baso # (Auto) Abs Immat Gran (auto) Absolute Neuts (auto) Absolute Nucleated RBC Nucleated RBC % Sodium Potassium Chloride Carbon Dioxide Anion Gap BUN Creatinine Estim Creat Clear Calc Estimated GFR Glucose POC Capillary Glucose 247 H 236 H 153 H Calcium Magnesium Total Bilirubin AST ALT Alkaline Phosphatase Total Protein Albumin 02/05/25 02/05/25 02/05/25 06:07 09:03 09:15 WBC 5.6 RBC 3.04 L Hgb 8.8 L Hct 28.6 L MCV 94.1 MCH 28.9 MCHC 30.8 L RDW 16.0 H Plt Count 235 MPV 10.5 H Immature Gran % (Auto) 0.4 Neut % (Auto) 61.4 Lymph % (Auto) 24.7 Johnston % (Auto) 7.7 Eos % (Auto) 5.6 H Baso % (Auto) 0.2 Lymph # (Auto) 1.37 Johnston # (Auto) 0.4 Eos # (Auto) 0.3 Baso # (Auto) 0.0 Abs Immat Gran (auto) 0.02 Absolute Neuts (auto) 3.4 Absolute Nucleated RBC 0.000 Nucleated RBC % 0.0 Sodium 136 L Potassium 5.1 H Chloride 99 Carbon Dioxide 30 Anion Gap 7 BUN 52 H D Creatinine 5.73 H Estim Creat Clear Calc 13 Estimated GFR 9 L Glucose 228 H POC Capillary Glucose 171 H 210 H Calcium 8.6 Magnesium 2.4 H Total Bilirubin 0.3 AST 68 H ALT 69 H Alkaline Phosphatase 327 H Total Protein 7.0 Albumin 3.7 02/05/25 11:30 WBC RBC Hgb Hct MCV MCH MCHC RDW Plt Count MPV Immature Gran % (Auto) Neut % (Auto) Lymph % (Auto) Johnston % (Auto) Eos % (Auto) Baso % (Auto) Lymph # (Auto) Johnston # (Auto) Eos # (Auto) Baso # (Auto) Abs Immat Gran (auto) Absolute Neuts (auto) Absolute Nucleated RBC Nucleated RBC % Sodium Potassium Chloride Carbon Dioxide Anion Gap BUN Creatinine Estim Creat Clear Calc Estimated GFR Glucose POC Capillary Glucose 151 H Calcium Magnesium Total Bilirubin AST ALT Alkaline Phosphatase Total Protein Albumin
[2025-02-05] MEDS: DOXYCYCLINE IV 100 MG in SODIUM CHLORIDE 0.9% IV 100 ML IVPB (21:13)
[2025-02-06] VITALS (25 sets, daily range): BP systolic 158–200; BP diastolic 79–119; PULSE 85–102; RESP 15–18; TEMP 36.4–37.4; O2SAT 97–99
[2025-02-06 00:28] LABS: Glucose 516 mg/dL (65-110)
[2025-02-06] MEDS: INSULIN ASPART (*BKC) 100 UNITS/ML SUB-Q ×4 (00:35→08:17)
[2025-02-06 06:07] LABS: Hematocrit 27.1 % (37.0-47.0); Hemoglobin 8.2 g/dL (12.0-15.0); Immature Granulocyte Percent A 0.5 % (0-0.5); Lymphocytes Absolute Auto 1.14 K/mm3 (0.9-3.2); Mean Corpuscular HGB Conc 30.3 g/dl (32-36); Mean Corpuscular Hemoglobin 28.6 pg (26-34); Mean Corpuscular Volume 94.4 fl (80-100); Nucleated Red Blood Cells Absolute Auto 0.000 K/mm3 (0.0-0.012); Nucleated Red Blood Cells Perc 0.0 % (0.0-0.2); Platelet Count Result 224 k/mm3 (150-375); Red Blood Count 2.87 M/mm3 (4.2-5.4); White Blood Count 3.9 K/mm3 (4.5-10.0)
[2025-02-06] MEDS: HYDROmorphone HCL INJ (*CRX) 1 MG/ML SYR 0.5 MG IV PUSH ×6 (06:10→20:38)
[2025-02-06] MEDS: CENTRAL LINE FLUSH 10 ML IV PUSH ×3 (06:12→22:08)
[2025-02-06 06:28] LABS: Alanine Aminotransferase 133 U/L (6-35); Albumin Level 3.6 g/dL (3.5-5.1); Alkaline Phosphatase 389 U/L (38-126); Anion Gap 8 mmol/L (4-12); Aspartate Amino Transferase 179 U/L (14-36); Bilirubin,Total 0.3 mg/dL (0.2-1.3); Blood Urea Nitrogen 69 mg/dL (7-17); Calcium 8.6 mg/dL (8.4-10.2); Carbon Dioxide 28 mmol/L (22-30); Chloride 98 mmol/L (98-107); Estimated CRCL calculation 11 ml/min; Estimated Glomerular Filt Rate 7; Glucose 251 mg/dL (65-110); Magnesium 2.6 mg/dL (1.6-2.3); Potassium 5.8 mmol/L (3.4-5.0); Sodium 134 mmol/L (137-145); Total Protein 6.7 g/dL (6.3-8.2)
--- NOTE | 2025-02-06 10:48 | PCNFU ---
Nutrition Follow-Up Complete: Inadequate oral intake related to altered GI function as evidenced by need for full tube feeds Goal: Meet estimated nutrition needs Patient will continue current goal. Pt current nutrition is Regular with Nocturnal TF of Nepro at 45 ml/hr 6pm-10am. Last recorded weight is 73 kg, up from 70 kg on admit. Bowel Motility: Last reported BM 01/31 Labs Reviewed: Glu 251, NA 134, K 5.8, BUN 69, Cr 6.68 Meds Noted: Lantus, NovoLog Skin: WNL Additional Notes: Patient is tolerating regular diet. Oral intake has been intermittent with intake. Tube feedings are being tolerating of Nepro at 45 ml/hr from 6pm-10am and providing 1134 kcal/43 gm protein/458 ml water. Meeting 65% kcal needs at 25 kcal/kg and 62% protein needs at 1.0 gm/kg. Flush 100 ml q 4 hours. Nausea still occurring per nursing. Patient in dialysis today for treatment. Agre with diet orders. Monitoring tube feeding tolerance, labs, weights, meds, output, plan of care Follow up Wednesday/Wednesday.
[2025-02-06] MEDS: EPOETIN ALFA-EPBX 10,000 UNITS/ML VIAL 10000 UNITS IV PUSH (11:11)
--- NOTE | 2025-02-06 11:11 | P.PNNP_ITS ---
Progress Note: A&P Assessment and Plan (1) End stage renal disease: Code(s): N18.6 - End stage renal disease Status: Chronic Assessment and Plan: * HD today * continue //Wednesday dialysis schedule while hospitalized * follow electrolytes, volume status, and clearance * outpatient dialysis clinic = [facility] in [place] * primary erp specialist = Dr. Odilon Tellez (2) DKA (diabetic ketoacidosis): Qualifiers: Diabetes mellitus complication detail: without coma Diabetes mellitus type: type 1 Qualified Code(s): E10.10 - Type 1 diabetes mellitus with ketoacidosis without coma Code(s): E11.10 - Type 2 diabetes mellitus with ketoacidosis without coma Status: Resolved Assessment and Plan: * resolved * as noted by evaluation in ER * recurrent and multiple ER visits/hospitalizations for this problems (usually gets most of her care at [facility] and more recently at [facility]) * s/p insulin gtt and weaned off * transitioned to SQ insulin (3) Nausea & vomiting: Qualifiers: Vomiting type: unspecified Qualified Code(s): R11.2 - Nausea with vomiting, unspecified Code(s): R11.2 - Nausea with vomiting, unspecified Status: Acute Assessment and Plan: * chronic and long standing issue (per patient and review of records) * cyclic in nature * thought to be secondary to diabetic gastroparesis * s/p recent G-J-tube placement to ensure adequate/supplemental nutrition given this issue * continue oral intake and supplement tube feeds as needed (4) Hyperkalemia: Code(s): E87.5 - Hyperkalemia Status: Acute Assessment and Plan: * fluctuates - note more so on the two day stretch (from Wednesday -> Wednesday) with regard to dialysis treatments * as noted by admission labs and AM labs on 01/30 * corrected with dialysis * follow trend (5) Diabetic gastroparesis: Code(s): E11.43 - Type 2 diabetes mellitus with diabetic autonomic (poly)neuropathy; K31.84 - Gastroparesis Status: Acute Assessment and Plan: * known and long standing issue * likely precipiting factor for admission symptoms (6) Anemia: Code(s): D64.9 - Anemia, unspecified Status: Chronic Assessment and Plan: * due to ESRD * Epogen with HD * follow trend of H/H (7) Hypertension: Code(s): I10 - Essential (primary) hypertension Status: Chronic Assessment and Plan: * quite elevated on admission * elevated in AM and improves over the day * on home medications * consider titration of losartan versus isosorbide dinitrate as needed * follow trend of hemodynamics (8) Type 1 diabetes: Qualifiers: Diabetes mellitus complication status: with hyperglycemia Qualified Code(s): E10.65 - Type 1 diabetes mellitus with hyperglycemia Code(s): E10.9 - Type 1 diabetes mellitus without complications Status: Chronic Assessment and Plan: * see #1 * follow accu-cheks * on SQ insulin (SSI and Lantus) * glycemic control per hospitalist Will continue to follow. L Subjective Date/time seen: 02/06/25 11:11 Interval history: Follow-up for end stage renal disease on hemodialysis. Tolerating dialysis treatment at the time of my visit (seen on HD at 11:00am); continud to have persistent abdominal pain as well as nausea; high blood sugars overnight noted as well; no acute distress noted when seen. Exam 2 Narrative: General: WD/WN female in NAD Heart: normal S1 and S2; no rub Lungs: decreased at bases Abdomen: soft, nontender, nondistended, positive bowel sounds Extremities: no cyanosis or clubbing; no edema Skin: warm and intact Objective Data Vital Signs Vital Signs: Vital Signs Temp Pulse Resp BP Pulse Ox O2 Del Method 02/06/25 11:00 91 189/99 H 02/06/25 10:45 90 179/105 H 02/06/25 10:30 91 182/100 H 02/06/25 10:15 90 177/100 H 02/06/25 10:00 95 176/87 H 02/06/25 09:45 94 175/102 H 02/06/25 09:30 94 178/108 H 02/06/25 09:15 96 191/108 H 02/06/25 09:08 93 196/111 H 02/06/25 08:53 98.2 F 95 16 200/119 H 97 02/06/25 08:00 94 02/06/25 08:00 Room Air 02/06/25 04:00 87 02/06/25 00:00 85 02/05/25 22:38 98 02/05/25 21:53 98.1 F 88 18 169/89 H 95 02/05/25 20:00 95 Intake/Output Intake/Output: Intake & Output 02/03/25 02/04/25 02/05/25 02/06/25 23:59 23:59 23:59 23:59 Intake Total 1350 1445 1060 910 Output Total 2000 3000 Balance -650 1445 1060 -2090 Meds/Results Medications: Active Medications Generic Name Dose Route Start Last Admin Trade Name Freq PRN Reason Stop Dose Admin Acetaminophen 650 mg 02/02/25 09:12 Acetaminophen Elixir 325 Mg/10.15 Ml Udc FEED TUBE Q4H PRN Mild Pain (1-3) or Fever Amlodipine Besylate 10 mg 02/02/25 09:00 02/06/25 11:45 Amlodipine Besylate 10 Mg Tablet FEED TUBE 10 mg DAILY JAYME Administration Carvedilol 12.5 mg 02/02/25 09:00 02/06/25 11:46 Carvedilol 12.5 Mg Tablet FEED TUBE 12.5 mg Q12H JAYME Administration Dextrose 12.5 gm 01/30/25 14:22 02/06/25 17:11 Dextrose 50% 25 Gm/50 Ml Syringe IV PUSH 12.5 gm PRN PRN Administration Hypoglycemia Protocol Diazepam 5 mg 01/29/25 22:29 02/01/25 04:48 Diazepam Inj (*Crx) 10 Mg/2 Ml Syringe IV PUSH 5 mg Q6H PRN Administration Intractable nausea vomiting Diphenhydramine HCl 50 mg 02/03/25 10:47 02/06/25 17:04 Diphenhydramine Hcl Inj 50 Mg/Ml Vial IV PUSH 50 mg Q4H PRN Administration Itching Epoetin Live-epbx 10,000 units 02/06/25 18:45 02/06/25 11:11 Epoetin Live-Epbx 10,000 Units/Ml Vial IV PUSH 02/06/25 18:46 10,000 units ONCE ONE Administration Escitalopram Oxalate 10 mg 02/02/25 09:00 02/06/25 11:46 Escitalopram Oxalate 10 Mg Tablet FEED TUBE 10 mg DAILY JAYME Administration Gabapentin 100 mg 02/02/25 09:00 02/06/25 16:50 Gabapentin 100 Mg Capsule FEED TUBE 100 mg TID JAYME Administration Glucagon 1 mg 01/30/25 14:22 Glucagon For Inj 1 Mg Vial IM PRN PRN Hypoglycemia Protocol Glucose 15 gm 01/30/25 14:22 Glucose Oral Gel 15 Gm Of Glucse In 37.5 Gm Tube PO PRN PRN Hypoglycemia Protocol Heparin Sodium (Beef Lung) 50 units 01/31/25 09:00 02/06/25 11:47 Heparin Flush 50 Units/5 Ml Syringe IV PUSH 50 units QAM JAYME Administration Heparin Sodium (Beef Lung) 50 units 01/30/25 10:15 02/04/25 12:47 Heparin Flush 50 Units/5 Ml Syringe IV PUSH 50 units PRN PRN Administration after intermittent infusion Heparin Sodium (Beef Lung) 50 units 01/30/25 10:15 02/06/25 01:25 Heparin Flush 50 Units/5 Ml Syringe IV PUSH 50 units PRN PRN Administration after blood draws Heparin Sodium (Porcine) 5,000 units 01/30/25 09:00 02/06/25 11:57 Heparin Sodium 5,000 Units/Ml Vial SUB-Q Not Given Q12HR [facility] Heparin Sodium (Porcine) 500 units 01/30/25 10:15 Heparin Sodium Lock Flush 500 Units/5 Ml Syringe IV PUSH PRN PRN see comments below Hydromorphone HCl 0.5 mg 01/30/25 11:31 02/06/25 17:34 Hydromorphone Hcl Inj (*Crx) 1 Mg/Ml Syr IV PUSH 0.5 mg Q2H PRN Administration Pain Rated 7-10 Albumin Human 50 mls @ 999 mls/hr 01/30/25 05:27 Albutein IVPB 03/01/25 05:26 Q10M PRN HYPOTENSION Dextrose 1,000 mls @ 100 mls/hr 01/30/25 14:22 Dextrose 5% 1,000 Ml IVPB PRN PRN Hypoglycemia Protocol Ceftriaxone Sodium 1 gm/ 50 mls @ 100 mls/hr 02/05/25 15:00 02/06/25 15:20 Sodium Chloride IVPB 100 mls/hr Q24H JAYME Administration Doxycycline Hyclate 100 mg/ 100 mls @ 100 mls/hr 02/05/25 21:00 02/06/25 13:36 Sodium Chloride IVPB 100 mls/hr Q12HR JAYME Administration Insulin Aspart 3 units 02/01/25 18:00 02/06/25 06:56 Insulin Aspart (*Bkc) 100 Units/Ml SUB-Q 3 units TID@0000,0600,1800 JAYME Administration Insulin Aspart 2 - 5 units 02/02/25 08:00 02/06/25 11:53 Insulin Aspart (*Bkc) 100 Units/Ml SUB-Q Not Given TIDWM [facility] Protocol Insulin Aspart 3 units 02/02/25 12:00 Insulin Aspart (*Bkc) 100 Units/Ml SUB-Q DAILY@1200 PRN ONLY IF PT EATS LUNCH Insulin Glargine 18 units 02/05/25 09:00 02/06/25 11:46 Insulin Glargine (*Bkc) 100 Units/Ml SUB-Q 18 units DAILY JAYME Administration Isosorbide Dinitrate 20 mg 02/04/25 17:00 02/06/25 16:50 Isosorbide Dinitrate 20 Mg Tablet FEED TUBE 20 mg TID JAYME Administration Losartan Potassium 25 mg 02/02/25 09:00 02/06/25 11:46 Losartan Potassium 25 Mg Tablet FEED TUBE 25 mg DAILY JAYME Administration Miscellaneous Information 1 each 02/02/25 08:57 Pharmacist Communication Order XX 03/04/25 08:56 ONCE JAYME Ondansetron HCl 4 mg 01/30/25 18:35 Ondansetron Inj 4 Mg/2 Ml Vial IV PUSH Q4H PRN Nausea And Vomiting Pantoprazole Sodium 40 mg 01/30/25 09:00 02/06/25 11:45 Pantoprazole Sodium Iv 40 Mg Vial IV PUSH 40 mg Q12HR JAYME Administration Sodium Chloride 10 ml 01/30/25 14:00 02/06/25 13:37 Central Line Flush IV PUSH 10 ml Q8HR JAYME Administration Radiology Results: ITS Impressions Chest X-Ray 02/02/25 20:02 IMPRESSION: No acute pulmonary findings. Chest/Abdomen/Pelvis CT 02/05/25 07:39 IMPRESSION: 1. Persistent airspace and groundglass opacities in left lung lower lobe with volume loss, consistent with pneumonia versus atelectasis/scarring. 2. Mild mediastinal, retroperitoneal, and pelvic lymphadenopathy, likely reactive. Labs Labs: Laboratory Tests 02/06/25 05:58 02/06/25 05:58 Calcium 8.6 Magnesium 2.6 H Total Bilirubin 0.3 AST 179 H ALT 133 H Alkaline Phosphatase 389 H Total Protein 6.7 Albumin 3.6 Microbiology 01/29/25 23:30 Blood Blood Culture - Final 01/29/25 23:31 Blood Blood Culture - Final
[2025-02-06] MEDS: PANTOPRAZOLE SODIUM IV 40 MG VIAL IV PUSH ×2 (11:45→20:32)
[2025-02-06] MEDS: ISOSORBIDE DINITRATE 20 MG TABLET FEED TUBE ×2 (11:45→16:50)
[2025-02-06] MEDS: GABAPENTIN 100 MG CAPSULE FEED TUBE ×2 (11:46→16:50)
[2025-02-06] MEDS: INSULIN GLARGINE (*BKC) 100 UNITS/ML 18 UNITS SUB-Q (11:46)
[2025-02-06] MEDS: LOSARTAN POTASSIUM 25 MG TABLET FEED TUBE (11:46)
[2025-02-06] MEDS: ESCITALOPRAM OXALATE 10 MG TABLET FEED TUBE (11:46)
[2025-02-06] MEDS: DOXYCYCLINE IV 100 MG in SODIUM CHLORIDE 0.9% IV 100 ML IVPB ×2 (13:36→20:42)
[2025-02-06] MEDS: cefTRIAXone 1 GM in SODIUM CHLORIDE 0.9% IV 50 ML 100 ML IVPB (15:20)
--- NOTE | 2025-02-06 16:34 | PM.IMPN ---
Progress Note: A&P Assessment and Plan (1) DKA, type 1: Qualifiers: Diabetes mellitus complication detail: without coma Qualified Code(s): E10.10 - Type 1 diabetes mellitus with ketoacidosis without coma Code(s): E10.10 - Type 1 diabetes mellitus with ketoacidosis without coma Status: Acute Assessment and Plan: DKA on presentation Pt was not given given IVF due to ESRD Insulin infusion was started and Q1H glucose monitoring is being done. Anion gap has now closed and patient has been transition to subcutaneous insulin Her metabolic acidosis anion gap was complicated by history of end-stage renal disease. fluctuating blood sugar She takes 15 units Lantus at home fluctuating. currently on 18 unit lantus daily. she gets tube feeds overnight. unsure of the uptrend at night 02/05/25. bs down to 100s during daytime. continue correctional insulin and long acting as ordered. (2) Nausea & vomiting: Qualifiers: Vomiting type: unspecified Qualified Code(s): R11.2 - Nausea with vomiting, unspecified Code(s): R11.2 - Nausea with vomiting, unspecified Status: Acute Assessment and Plan: History of chronic nausea vomiting. Currently feels better History of gastroparesis on GJ tube placement On tube feeds at night (3) End stage renal disease on dialysis: Code(s): N18.6 - End stage renal disease; Z99.2 - Dependence on renal dialysis Status: Acute Assessment and Plan: Inpatient dialysis per Nephrology (4) SIRS (systemic inflammatory response syndrome): Code(s): R65.10 - Systemic inflammatory response syndrome (SIRS) of non-infectious origin without acute organ dysfunction Status: Acute Assessment and Plan: Findings suggestive of sirs likely from DKA although blood cultures have been sent and are pending. Procalcitonin level is 2.5 but patient is afebrile with normal WBC count. Hold any antibiotics and monitor this time UA with 10-20 WBC. Urine culture mixed urogenital lupe 25-[address] with findings of left lower lobe pneumonia. Start ceftriaxone and doxycycline 02/05/25 continue current antibiotics. (5) Hypertension: Code(s): I10 - Essential (primary) hypertension Status: Chronic Assessment and Plan: Continue Coreg amlodipine Imdur and Cozaar Imdur has been changed to isosorbide dinitrate per PEG Increase dose to 20 b.i.d. (6) Type 1 diabetes: Qualifiers: Diabetes mellitus complication status: with hyperglycemia Qualified Code(s): E10.65 - Type 1 diabetes mellitus with hyperglycemia Code(s): E10.9 - Type 1 diabetes mellitus without complications Status: Chronic Assessment and Plan: Patient was started Lantus and sliding scale and on tube feeds. Adjust as needed Plan Abdominal pain persistent persistent nausea. CT with no acute intra-abdominal findings. Does have left lower lobe pneumonia which could be the reason for epigastric pain. DVT prophylaxis -heparin subQ Stress ulcer prophylaxis -protonix Nutrition -continue Tube Feeds Code Status - Full Code Subjective Date/time seen: 02/06/25 16:34 Interval history: patient complains of ongoing abdominal discomfort, some cough , ongoing nausea. patient remains afebrile. blood sugar was up all night. Review of Systems Review of Systems: All systems reviewed & are unremarkable except as noted in HPI and below (HPI) Exam Narrative: Patient is comfortable, NAD HEENT: eyes are clear and none icteric LUNGS:CTA HEART: RR S1S2 ABD: BS+, Soft and mildly distended, G-tube in-situ Lower extremities: no edema SKIN: nonjaundiced Neuro: grossly intact. Objective Data Vital Signs Vital Signs: Vital Signs - 24 hr 02/05/25 20:00 02/05/25 21:53 02/05/25 22:38 Temperature 98.1 F Pulse Rate 95 88 98 Respiratory Rate 18 Blood Pressure 169/89 H Pulse Oximetry 95 Oxygen Delivery 02/06/25 00:00 02/06/25 04:00 02/06/25 08:00 Temperature Pulse Rate 85 87 Respiratory Rate Blood Pressure Pulse Oximetry Oxygen Delivery Room Air 02/06/25 08:00 02/06/25 08:53 02/06/25 09:08 Temperature 98.2 F Pulse Rate 94 95 93 Respiratory Rate 16 Blood Pressure 200/119 H 196/111 H Pulse Oximetry 97 Oxygen Delivery 02/06/25 09:15 02/06/25 09:30 02/06/25 09:45 Temperature Pulse Rate 96 94 94 Respiratory Rate Blood Pressure 191/108 H 178/108 H 175/102 H Pulse Oximetry Oxygen Delivery 02/06/25 10:00 02/06/25 10:15 02/06/25 10:30 Temperature Pulse Rate 95 90 91 Respiratory Rate Blood Pressure 176/87 H 177/100 H 182/100 H Pulse Oximetry Oxygen Delivery 02/06/25 10:45 02/06/25 11:00 02/06/25 11:15 Temperature Pulse Rate 90 91 89 Respiratory Rate Blood Pressure 179/105 H 189/99 H 187/104 H Pulse Oximetry Oxygen Delivery 02/06/25 11:30 02/06/25 11:45 02/06/25 12:00 Temperature Pulse Rate 91 93 95 Respiratory Rate Blood Pressure 197/106 H 178/102 H 176/91 H Pulse Oximetry Oxygen Delivery 02/06/25 12:00 02/06/25 12:11 02/06/25 12:17 Temperature 98.2 F Pulse Rate 94 92 91 Respiratory Rate 16 Blood Pressure 165/89 H 177/94 H Pulse Oximetry 98 Oxygen Delivery 02/06/25 14:00 02/06/25 16:00 Temperature 97.6 F Pulse Rate 91 92 Respiratory Rate 15 Blood Pressure 158/79 H Pulse Oximetry 97 Oxygen Delivery Intake/Output Intake/Output: Intake & Output 02/03/25 02/04/25 02/05/25 02/06/25 23:59 23:59 23:59 23:59 Intake Total 1350 1445 1060 610 Output Total 2000 3000 Balance -650 1445 1060 -2390 Meds/Results Medications: Active Medications Generic Name Dose Route Start Last Admin Trade Name Freq PRN Reason Stop Dose Admin Acetaminophen 650 mg 02/02/25 09:12 Acetaminophen Elixir 325 Mg/10.15 Ml Udc FEED TUBE Q4H PRN Mild Pain (1-3) or Fever Amlodipine Besylate 10 mg 02/02/25 09:00 02/06/25 11:45 Amlodipine Besylate 10 Mg Tablet FEED TUBE 10 mg DAILY JAYME Administration Carvedilol 12.5 mg 02/02/25 09:00 02/06/25 11:46 Carvedilol 12.5 Mg Tablet FEED TUBE 12.5 mg Q12H JAYME Administration Dextrose 12.5 gm 01/30/25 14:22 02/01/25 04:39 Dextrose 50% 25 Gm/50 Ml Syringe IV PUSH 12.5 gm PRN PRN Administration Hypoglycemia Protocol Diazepam 5 mg 01/29/25 22:29 02/01/25 04:48 Diazepam Inj (*Crx) 10 Mg/2 Ml Syringe IV PUSH 5 mg Q6H PRN Administration Intractable nausea vomiting Diphenhydramine HCl 50 mg 02/03/25 10:47 02/06/25 13:33 Diphenhydramine Hcl Inj 50 Mg/Ml Vial IV PUSH 50 mg Q4H PRN Administration Itching Epoetin Live-epbx 10,000 units 02/06/25 18:45 02/06/25 11:11 Epoetin Live-Epbx 10,000 Units/Ml Vial IV PUSH 02/06/25 18:46 10,000 units ONCE ONE Administration Escitalopram Oxalate 10 mg 02/02/25 09:00 02/06/25 11:46 Escitalopram Oxalate 10 Mg Tablet FEED TUBE 10 mg DAILY JAYME Administration Gabapentin 100 mg 02/02/25 09:00 02/06/25 13:28 Gabapentin 100 Mg Capsule FEED TUBE Not Given TID JAYME Glucagon 1 mg 01/30/25 14:22 Glucagon For Inj 1 Mg Vial IM PRN PRN Hypoglycemia Protocol Glucose 15 gm 01/30/25 14:22 Glucose Oral Gel 15 Gm Of Glucse In 37.5 Gm Tube PO PRN PRN Hypoglycemia Protocol Heparin Sodium (Beef Lung) 50 units 01/31/25 09:00 02/06/25 11:47 Heparin Flush 50 Units/5 Ml Syringe IV PUSH 50 units QAM JAYME Administration Heparin Sodium (Beef Lung) 50 units 01/30/25 10:15 02/04/25 12:47 Heparin Flush 50 Units/5 Ml Syringe IV PUSH 50 units PRN PRN Administration after intermittent infusion Heparin Sodium (Beef Lung) 50 units 01/30/25 10:15 02/06/25 01:25 Heparin Flush 50 Units/5 Ml Syringe IV PUSH 50 units PRN PRN Administration after blood draws Heparin Sodium (Porcine) 5,000 units 01/30/25 09:00 02/06/25 11:57 Heparin Sodium 5,000 Units/Ml Vial SUB-Q Not Given Q12HR JAYME Heparin Sodium (Porcine) 500 units 01/30/25 10:15 Heparin Sodium Lock Flush 500 Units/5 Ml Syringe IV PUSH PRN PRN see comments below Hydromorphone HCl 0.5 mg 01/30/25 11:31 02/06/25 15:15 Hydromorphone Hcl Inj (*Crx) 1 Mg/Ml Syr IV PUSH 0.5 mg Q2H PRN Administration Pain Rated 7-10 Albumin Human 50 mls @ 999 mls/hr 01/30/25 05:27 Albutein IVPB 03/01/25 05:26 Q10M PRN HYPOTENSION Dextrose 1,000 mls @ 100 mls/hr 01/30/25 14:22 Dextrose 5% 1,000 Ml IVPB PRN PRN Hypoglycemia Protocol Ceftriaxone Sodium 1 gm/ 50 mls @ 100 mls/hr 02/05/25 15:00 02/06/25 15:20 Sodium Chloride IVPB 100 mls/hr Q24H JAYME Administration Doxycycline Hyclate 100 mg/ 100 mls @ 100 mls/hr 02/05/25 21:00 02/06/25 13:36 Sodium Chloride IVPB 100 mls/hr Q12HR JAYME Administration Insulin Aspart 3 units 02/01/25 18:00 02/06/25 06:56 Insulin Aspart (*Bkc) 100 Units/Ml SUB-Q 3 units TID@0000,0600,1800 JAYME Administration Insulin Aspart 2 - 5 units 02/02/25 08:00 02/06/25 11:53 Insulin Aspart (*Bkc) 100 Units/Ml SUB-Q Not Given TIDWM JAYME Protocol Insulin Aspart 3 units 02/02/25 12:00 Insulin Aspart (*Bkc) 100 Units/Ml SUB-Q DAILY@1200 PRN ONLY IF PT EATS LUNCH Insulin Glargine 18 units 02/05/25 09:00 02/06/25 11:46 Insulin Glargine (*Bkc) 100 Units/Ml SUB-Q 18 units DAILY JAYME Administration Isosorbide Dinitrate 20 mg 02/04/25 17:00 02/06/25 13:29 Isosorbide Dinitrate 20 Mg Tablet FEED TUBE Not Given TID JAYME Losartan Potassium 25 mg 02/02/25 09:00 02/06/25 11:46 Losartan Potassium 25 Mg Tablet FEED TUBE 25 mg DAILY JAYME Administration Miscellaneous Information 1 each 02/02/25 08:57 Pharmacist Communication Order XX 03/04/25 08:56 ONCE JAYME Ondansetron HCl 4 mg 01/30/25 18:35 Ondansetron Inj 4 Mg/2 Ml Vial IV PUSH Q4H PRN Nausea And Vomiting Pantoprazole Sodium 40 mg 01/30/25 09:00 02/06/25 11:45 Pantoprazole Sodium Iv 40 Mg Vial IV PUSH 40 mg Q12HR JAYME Administration Sodium Chloride 10 ml 01/30/25 14:00 02/06/25 13:37 Central Line Flush IV PUSH 10 ml Q8HR JAYME Administration Radiology Results: ITS Impressions Chest X-Ray 02/02/25 20:02 IMPRESSION: No acute pulmonary findings. Chest/Abdomen/Pelvis CT 02/05/25 07:39 IMPRESSION: 1. Persistent airspace and groundglass opacities in left lung lower lobe with volume loss, consistent with pneumonia versus atelectasis/scarring. 2. Mild mediastinal, retroperitoneal, and pelvic lymphadenopathy, likely reactive. Labs Labs: Laboratory Results - last 24 hr 02/05/25 02/05/25 02/05/25 16:39 18:32 20:08 WBC RBC Hgb Hct MCV MCH MCHC RDW Plt Count MPV Immature Gran % (Auto) Neut % (Auto) Lymph % (Auto) [place] % (Auto) Eos % (Auto) Baso % (Auto) Lymph # (Auto) [place] # (Auto) Eos # (Auto) Baso # (Auto) Abs Immat Gran (auto) Absolute Neuts (auto) Absolute Nucleated RBC Nucleated RBC % Sodium Potassium Chloride Carbon Dioxide Anion Gap BUN Creatinine Estim Creat Clear Calc Estimated GFR Glucose POC Capillary Glucose 96 213 H 341 H Calcium Magnesium Total Bilirubin AST ALT Alkaline Phosphatase Total Protein Albumin 02/05/25 02/06/25 02/06/25 23:55 00:08 01:36 WBC RBC Hgb Hct MCV MCH MCHC RDW Plt Count MPV Immature Gran % (Auto) Neut % (Auto) Lymph % (Auto) [place] % (Auto) Eos % (Auto) Baso % (Auto) Lymph # (Auto) [place] # (Auto) Eos # (Auto) Baso # (Auto) Abs Immat Gran (auto) Absolute Neuts (auto) Absolute Nucleated RBC Nucleated RBC % Sodium Potassium Chloride Carbon Dioxide Anion Gap BUN Creatinine Estim Creat Clear Calc Estimated GFR Glucose 516 H* POC Capillary Glucose > 500 H* > 500 H* Calcium Magnesium Total Bilirubin AST ALT Alkaline Phosphatase Total Protein Albumin 02/06/25 02/06/25 02/06/25 03:12 05:58 06:47 WBC 3.9 L RBC 2.87 L Hgb 8.2 L Hct 27.1 L MCV 94.4 MCH 28.6 MCHC 30.3 L RDW 16.6 H Plt Count 224 MPV 10.6 H Immature Gran % (Auto) 0.5 Neut % (Auto) 56.0 Lymph % (Auto) 29.5 [place] % (Auto) 9.6 H Eos % (Auto) 4.4 Baso % (Auto) 0.0 L Lymph # (Auto) 1.14 [place] # (Auto) 0.4 Eos # (Auto) 0.2 Baso # (Auto) 0.0 Abs Immat Gran (auto) 0.02 Absolute Neuts (auto) 2.2 Absolute Nucleated RBC 0.000 Nucleated RBC % 0.0 Sodium 134 L Potassium 5.8 H Chloride 98 Carbon Dioxide 28 Anion Gap 8 BUN 69 H D Creatinine 6.68 H Estim Creat Clear Calc 11 Estimated GFR 7 L Glucose 251 H POC Capillary Glucose 358 H 269 H Calcium 8.6 Magnesium 2.6 H Total Bilirubin 0.3 AST 179 H ALT 133 H Alkaline Phosphatase 389 H Total Protein 6.7 Albumin 3.6 02/06/25 02/06/25 08:06 11:27 WBC RBC Hgb Hct MCV MCH MCHC RDW Plt Count MPV Immature Gran % (Auto) Neut % (Auto) Lymph % (Auto) [place] % (Auto) Eos % (Auto) Baso % (Auto) Lymph # (Auto) [place] # (Auto) Eos # (Auto) Baso # (Auto) Abs Immat Gran (auto) Absolute Neuts (auto) Absolute Nucleated RBC Nucleated RBC % Sodium Potassium Chloride Carbon Dioxide Anion Gap BUN Creatinine Estim Creat Clear Calc Estimated GFR Glucose POC Capillary Glucose 285 H 113 H Calcium Magnesium Total Bilirubin AST ALT Alkaline Phosphatase Total Protein Albumin
[2025-02-06] MEDS: DEXTROSE 50% 25 GM/50 ML SYRINGE IV PUSH (17:11)
[2025-02-06] MEDS: diazePAM INJ (*CRX) 10 MG/2 ML SYRINGE 5 MG IV PUSH (18:44)
[2025-02-07] VITALS: PULSE 90
[2025-02-07] MEDS: HYDROmorphone HCL INJ (*CRX) 1 MG/ML SYR 0.5 MG IV PUSH ×6 (00:22→23:23)
[2025-02-07] MEDS: INSULIN ASPART (*BKC) 100 UNITS/ML SUB-Q ×2 (00:28→05:01)
[2025-02-07 04:00] VITALS: PULSE 92
[2025-02-07 04:43] VITALS: BP 182/91; PULSE 93; RESP 20; TEMP 36.5; O2SAT 97
[2025-02-07] MEDS: CENTRAL LINE FLUSH 10 ML IV PUSH ×3 (05:00→20:17)
[2025-02-07] MEDS: diazePAM INJ (*CRX) 10 MG/2 ML SYRINGE 5 MG IV PUSH ×3 (05:08→23:24)
[2025-02-07 05:16] LABS: Hematocrit 29.1 % (37.0-47.0); Hemoglobin 8.9 g/dL (12.0-15.0); Immature Granulocyte Percent A 0.3 % (0-0.5); Lymphocytes Absolute Auto 1.21 K/mm3 (0.9-3.2); Mean Corpuscular HGB Conc 30.6 g/dl (32-36); Mean Corpuscular Hemoglobin 28.4 pg (26-34); Mean Corpuscular Volume 93.0 fl (80-100); Nucleated Red Blood Cells Absolute Auto 0.000 K/mm3 (0.0-0.012); Nucleated Red Blood Cells Perc 0.0 % (0.0-0.2); Platelet Count Result 250 k/mm3 (150-375); Red Blood Count 3.13 M/mm3 (4.2-5.4); White Blood Count 3.7 K/mm3 (4.5-10.0)
[2025-02-07 05:41] LABS: Alanine Aminotransferase 115 U/L (6-35); Albumin Level 3.7 g/dL (3.5-5.1); Alkaline Phosphatase 343 U/L (38-126); Anion Gap 10 mmol/L (4-12); Aspartate Amino Transferase 78 U/L (14-36); Bilirubin,Total 0.4 mg/dL (0.2-1.3); Blood Urea Nitrogen 36 mg/dL (7-17); Calcium 8.8 mg/dL (8.4-10.2); Carbon Dioxide 28 mmol/L (22-30); Chloride 99 mmol/L (98-107); Estimated CRCL calculation 16 ml/min; Estimated Glomerular Filt Rate 13; Glucose 239 mg/dL (65-110); Magnesium 2.2 mg/dL (1.6-2.3); Potassium 4.8 mmol/L (3.4-5.0); Sodium 137 mmol/L (137-145); Total Protein 7.0 g/dL (6.3-8.2)
[2025-02-07 06:04] LABS: Hypochromasia 1+
[2025-02-07 06:05] LABS: Anisocytosis 1+; Target Cells 1+
[2025-02-07 06:06] LABS: Schistocytes None Seen
[2025-02-07 08:00] VITALS: PULSE 104
[2025-02-07] MEDS: PANTOPRAZOLE SODIUM IV 40 MG VIAL IV PUSH (08:22)
[2025-02-07] MEDS: ONDANSETRON INJ 4 MG/2 ML VIAL IV PUSH (09:53)
[2025-02-07] MEDS: INSULIN GLARGINE (*BKC) 100 UNITS/ML 18 UNITS SUB-Q (09:54)
[2025-02-07 12:00] VITALS: PULSE 110
--- NOTE | 2025-02-07 13:43 | P.PNIM_ITS ---
Progress Note: A&P Assessment and Plan (1) DKA, type 1: Qualifiers: Diabetes mellitus complication detail: without coma Qualified Code(s): E10.10 - Type 1 diabetes mellitus with ketoacidosis without coma Code(s): E10.10 - Type 1 diabetes mellitus with ketoacidosis without coma Status: Acute Assessment and Plan: DKA on presentation Pt was not given given IVF due to ESRD Insulin infusion was started and Q1H glucose monitoring is being done. Anion gap closed and patient was transition to subcutaneous insulin Her metabolic acidosis anion gap was complicated by history of end-stage renal disease. She was transitioned to SQ insulin (2) Type 1 diabetes: Qualifiers: Diabetes mellitus complication status: with hyperglycemia Qualified Code(s): E10.65 - Type 1 diabetes mellitus with hyperglycemia Code(s): E10.9 - Type 1 diabetes mellitus without complications Status: Chronic Assessment and Plan: A1c 8.4 last month. She takes 15 units Lantus at home but currently on 18 unit lantus daily. She gets tube feeds overnight and is on Novolog Q6hr (except at noon which is PRN if she eats). The patient's blood glucose was reviewed on 02/07 Glucose remains reasonably well controlled. Continue AccuCheks covering with sliding scale. Hypoglycemia protocol available as needed. Continue current treatment plan (3) Nausea & vomiting: Qualifiers: Vomiting type: unspecified Qualified Code(s): R11.2 - Nausea with vomiting, unspecified Code(s): R11.2 - Nausea with vomiting, unspecified Status: Acute Assessment and Plan: History of chronic nausea and vomiting with known gastroparesis. History of gastroparesis on GJ tube placement Persistent abdominal pain requiring frequent dilaudid use. CT C/A/P showing persistent LLL airspace disease and mild adenopathy. The LLL PNA noted by CT on 12/23/24 but no rior imaging to review. On tube feeds at night. Narcotics may be contributing to her nausea. Discussed with her at length with plans to begin to wean this down. (4) End stage renal disease on dialysis: Code(s): N18.6 - End stage renal disease; Z99.2 - Dependence on renal dialysis Status: Acute Assessment and Plan: Inpatient dialysis per Nephrology Normally on schedule (5) SIRS (systemic inflammatory response syndrome): Code(s): R65.10 - Systemic inflammatory response syndrome (SIRS) of non-infectious origin without acute organ dysfunction Status: Acute Assessment and Plan: Findings suggestive of sirs likely from DKA. Procalcitonin level is 2.5 but patient was afebrile with normal WBC count. Abx were held. BCX negative. Urine culture mixed urogenital lupe 25-50 K. MRSA nasal swab negative. CT with findings of left lower lobe pneumonia. Start ceftriaxone and doxycycline 02/05/25 continue current antibiotics. (6) Hypertension: Code(s): I10 - Essential (primary) hypertension Status: Chronic Assessment and Plan: Patient's blood pressure was reviewed on 02/07 Blood pressure remains poorly controlled. On Coreg amlodipine Imdur and Cozaar Imdur has been changed to isosorbide dinitrate per PEG Increase Cozaar Plan DVT prophylaxis -heparin subQ Nutrition -continue Tube Feeds Code Status - Full Code Subjective Date/time seen: 02/07/25 13:43 Interval history: 29yo female with a past medical history of ESRD due to type 1 DM with complications including diabetic peripheral neuropathy and gastroparesis status post recent G-tube placement for decompression in J-tube placement for enteral feeds who presented to the ER with 3 days of nausea vomiting and couple of hours of left-sided chest pain. Assuming care. Chart reviewed. She is having TF from 6pm-10am and GTube to gravity. She has chronic nausea but states it has been better since JTube placed until this admission. She is requiring dilaudid frequently for abd pain and states no other medications work for her. She Is hvaing normal BMs with constipation or diarrhea. She has a gastric pacemekar. No dysuria. No hematuria. No change she could be . No CP or SOB. She has recently been set up with a palliative care team Exam Narrative: AF 97.7 182/91 104 20 97% ra Gen - NARD Chest - left upper chest port in place that is accessed. Right upper chest HD catheter in place CV - RRR S1/S2; Tele showing no significnat dysrhythmias. Abd - soft, +BS. G/J tube site clean and dry Ext - trace pedal edema. Neuro - nonfocal Psych - depressed mood Skin - left foot with dry dressing that was removed with dime sized shallow ulcer but no surrounding erythema. Old dried eschars and flaky hyperpigmented skin noted about the toes. Objective Data Vital Signs Vital Signs: Vital Signs - 24 hr 02/06/25 14:00 02/06/25 16:00 02/06/25 20:00 Temperature 97.6 F Pulse Rate 91 92 Respiratory Rate 15 Blood Pressure 158/79 H Pulse Oximetry 97 Oxygen Delivery Room Air 02/06/25 20:00 02/06/25 20:32 02/06/25 21:55 Temperature 98.1 F Pulse Rate 91 102 H 102 H Respiratory Rate 18 Blood Pressure 191/96 H Pulse Oximetry 99 Oxygen Delivery 02/07/25 00:00 02/07/25 04:00 02/07/25 04:43 Temperature 97.7 F Pulse Rate 90 92 93 Respiratory Rate 20 Blood Pressure 182/91 H Pulse Oximetry 97 Oxygen Delivery 02/07/25 08:00 02/07/25 08:25 Temperature Pulse Rate 104 H Respiratory Rate Blood Pressure Pulse Oximetry Oxygen Delivery Room Air Intake/Output Intake/Output: Intake & Output 02/04/25 02/05/25 02/06/25 02/07/25 23:59 23:59 23:59 23:59 Intake Total 1445 1060 1110 0 Output Total 3000 Balance 1445 1060 -1890 0 Meds/Results Medications: Active Medications Generic Name Dose Route Start Last Admin Trade Name Freq PRN Reason Stop Dose Admin Acetaminophen 650 mg 02/02/25 09:12 Acetaminophen Elixir 325 Mg/10.15 Ml Udc FEED TUBE Q4H PRN Mild Pain (1-3) or Fever Amlodipine Besylate 10 mg 02/02/25 09:00 02/06/25 11:45 Amlodipine Besylate 10 Mg Tablet FEED TUBE 10 mg DAILY JAYME Administration Carvedilol 12.5 mg 02/02/25 09:00 02/06/25 20:32 Carvedilol 12.5 Mg Tablet FEED TUBE 12.5 mg Q12H JAYME Administration Dextrose 12.5 gm 01/30/25 14:22 02/06/25 17:11 Dextrose 50% 25 Gm/50 Ml Syringe IV PUSH 12.5 gm PRN PRN Administration Hypoglycemia Protocol Diazepam 5 mg 01/29/25 22:29 02/07/25 11:49 Diazepam Inj (*Crx) 10 Mg/2 Ml Syringe IV PUSH 5 mg Q6H PRN Administration Intractable nausea vomiting Diphenhydramine HCl 50 mg 02/03/25 10:47 02/07/25 12:35 Diphenhydramine Hcl Inj 50 Mg/Ml Vial IV PUSH 50 mg Q4H PRN Administration Itching Doxycycline Hyclate 100 mg 02/07/25 09:00 Doxycycline Hyclate 100 Mg Tablet FEED TUBE 02/10/25 09:01 Q12HR [facility] Escitalopram Oxalate 10 mg 02/02/25 09:00 02/06/25 11:46 Escitalopram Oxalate 10 Mg Tablet FEED TUBE 10 mg DAILY JAYME Administration Gabapentin 100 mg 02/02/25 09:00 02/06/25 16:50 Gabapentin 100 Mg Capsule FEED TUBE 100 mg TID JAYME Administration Glucagon 1 mg 01/30/25 14: Glucagon For Inj 1 Mg Vial IM PRN PRN Hypoglycemia Protocol Glucose 15 gm 01/30/25 14:22 Glucose Oral Gel 15 Gm Of Glucse In 37.5 Gm Tube PO PRN PRN Hypoglycemia Protocol Heparin Sodium (Beef Lung) 50 units 01/31/25 09:00 02/07/25 08:24 Heparin Flush 50 Units/5 Ml Syringe IV PUSH Not Given QAM [facility] Heparin Sodium (Beef Lung) 50 units 01/30/25 10:15 02/04/25 12:47 Heparin Flush 50 Units/5 Ml Syringe IV PUSH 50 units PRN PRN Administration after intermittent infusion Heparin Sodium (Beef Lung) 50 units 01/30/25 10:15 02/06/25 01:25 Heparin Flush 50 Units/5 Ml Syringe IV PUSH 50 units PRN PRN Administration after blood draws Heparin Sodium (Porcine) 5,000 units 01/30/25 09:00 02/07/25 09:52 Heparin Sodium 5,000 Units/Ml Vial SUB-Q Not Given Q12HR [facility] Heparin Sodium (Porcine) 500 units 01/30/25 10:15 Heparin Sodium Lock Flush 500 Units/5 Ml Syringe IV PUSH PRN PRN see comments below Hydromorphone HCl 0.5 mg 01/30/25 11:31 02/07/25 10:25 Hydromorphone Hcl Inj (*Crx) 1 Mg/Ml Syr IV PUSH 0.5 mg Q2H PRN Administration Pain Rated 7-10 Albumin Human 50 mls @ 999 mls/hr 01/30/25 05:27 Albutein IVPB 03/01/25 05:26 Q10M PRN HYPOTENSION Dextrose 1,000 mls @ 100 mls/hr 01/30/25 14:22 Dextrose 5% 1,000 Ml IVPB PRN PRN Hypoglycemia Protocol Ceftriaxone Sodium 1 gm/ 50 mls @ 100 mls/hr 02/05/25 15:00 02/06/25 15:20 Sodium Chloride IVPB 02/09/25 15:29 100 mls/hr Q24H JAYME Administration Insulin Aspart 3 units 02/01/25 18:00 02/07/25 05:01 Insulin Aspart (*Bkc) 100 Units/Ml SUB-Q 3 units TID@0000,0600,1800 JAYME Administration Insulin Aspart 2 - 5 units 02/02/25 08:00 02/07/25 13:26 Insulin Aspart (*Bkc) 100 Units/Ml SUB-Q Not Given TIDWM JAYME Protocol Insulin Aspart 3 units 02/02/25 12:00 Insulin Aspart (*Bkc) 100 Units/Ml SUB-Q DAILY@1200 PRN ONLY IF PT EATS LUNCH Insulin Glargine 18 units 02/05/25 09:00 02/07/25 09:54 Insulin Glargine (*Bkc) 100 Units/Ml SUB-Q 18 units DAILY JAYME Administration Isosorbide Dinitrate 20 mg 02/04/25 17:00 02/07/25 13:25 Isosorbide Dinitrate 20 Mg Tablet FEED TUBE Not Given TID JAYME Losartan Potassium 25 mg 02/02/25 09:00 02/06/25 11:46 Losartan Potassium 25 Mg Tablet FEED TUBE 25 mg DAILY JAYME Administration Miscellaneous Information 1 each 02/02/25 08:57 Pharmacist Communication Order XX 03/04/25 08:56 ONCE JAYME Ondansetron HCl 4 mg 01/30/25 18:35 02/07/25 09:53 Ondansetron Inj 4 Mg/2 Ml Vial IV PUSH 4 mg Q4H PRN Administration Nausea And Vomiting Pantoprazole Sodium 40 mg 01/30/25 09:00 02/07/25 08:22 Pantoprazole Sodium Iv 40 Mg Vial IV PUSH 40 mg Q12HR JAYME Administration Sodium Chloride 10 ml 01/30/25 14:00 02/07/25 05:00 Central Line Flush IV PUSH 10 ml Q8HR JAYME Administration Radiology Results: ITS Impressions Chest X-Ray 02/02/25 20:02 IMPRESSION: No acute pulmonary findings. Chest/Abdomen/Pelvis CT 02/05/25 07:39 IMPRESSION: 1. Persistent airspace and groundglass opacities in left lung lower lobe with volume loss, consistent with pneumonia versus atelectasis/scarring. 2. Mild mediastinal, retroperitoneal, and pelvic lymphadenopathy, likely reactive. Labs Labs: Laboratory Results - last 24 hr 02/06/25 02/06/25 02/06/25 17:05 17:33 20:33 WBC RBC Hgb Hct MCV MCH MCHC RDW Plt Count MPV Immature Gran % (Auto) Neut % (Auto) Lymph % (Auto) Baxter % (Auto) Eos % (Auto) Baso % (Auto) Lymph # (Auto) Baxter # (Auto) Eos # (Auto) Baso # (Auto) Abs Immat Gran (auto) Absolute Neuts (auto) Absolute Nucleated RBC Band Neutrophils % Nucleated RBC % Platelet Estimate Hypochromasia Anisocytosis Target Cells Schistocytes Sodium Potassium Chloride Carbon Dioxide Anion Gap BUN Creatinine Estim Creat Clear Calc Estimated GFR Glucose POC Capillary Glucose 64 L 135 H 155 H Calcium Magnesium Total Bilirubin AST ALT Alkaline Phosphatase Total Protein Albumin 02/07/25 02/07/25 02/07/25 00:25 04:40 05:00 WBC 3.7 L RBC 3.13 L Hgb 8.9 L Hct 29.1 L MCV 93.0 MCH 28.4 MCHC 30.6 L RDW 16.6 H Plt Count 250 MPV 10.7 H Immature Gran % (Auto) 0.3 Neut % (Auto) 51.2 Lymph % (Auto) 32.4 Baxter % (Auto) 9.1 H Eos % (Auto) 6.7 H Baso % (Auto) 0.3 Lymph # (Auto) 1.21 Baxter # (Auto) 0.3 Eos # (Auto) 0.3 Baso # (Auto) 0.0 Abs Immat Gran (auto) 0.01 Absolute Neuts (auto) 1.9 Absolute Nucleated RBC 0.000 Band Neutrophils % Not Reportable Nucleated RBC % 0.0 Platelet Estimate Adequate Hypochromasia 1+ Anisocytosis 1+ Target Cells 1+ Schistocytes None seen Sodium 137 Potassium 4.8 Chloride 99 Carbon Dioxide 28 Anion Gap 10 BUN 36 H D Creatinine 4.09 H Estim Creat Clear Calc 16 Estimated GFR 13 L Glucose 239 H POC Capillary Glucose 281 H 225 H Calcium 8.8 Magnesium 2.2 Total Bilirubin 0.4 AST 78 H ALT 115 H Alkaline Phosphatase 343 H Total Protein 7.0 Albumin 3.7 02/07/25 02/07/25 07:51 11:36 WBC RBC Hgb Hct MCV MCH MCHC RDW Plt Count MPV Immature Gran % (Auto) Neut % (Auto) Lymph % (Auto) Baxter % (Auto) Eos % (Auto) Baso % (Auto) Lymph # (Auto) Baxter # (Auto) Eos # (Auto) Baso # (Auto) Abs Immat Gran (auto) Absolute Neuts (auto) Absolute Nucleated RBC Band Neutrophils % Nucleated RBC % Platelet Estimate Hypochromasia Anisocytosis Target Cells Schistocytes Sodium Potassium Chloride Carbon Dioxide Anion Gap BUN Creatinine Estim Creat Clear Calc Estimated GFR Glucose POC Capillary Glucose 160 H 181 H Calcium Magnesium Total Bilirubin AST ALT Alkaline Phosphatase Total Protein Albumin
[2025-02-07] MEDS: cefTRIAXone 1 GM in SODIUM CHLORIDE 0.9% IV 50 ML 100 ML IVPB (15:19)
--- NOTE | 2025-02-07 22:58 | PC.NURSE ---
PT CONTINUES TO REFUSE VITALS, BLOOD SUGARS CHECKS, AND MOST MEDICATIONS OTHER THAN HER PRN'S. PT ALSO NOT ALLOWING ME TO RESTART HER TUBE FEEDINGS DUE TO NAUSEA. PT ALSO DID NOT ALLOW ME TO DO A FULL PHYSICAL ASSESSMENT STATING SHE DID NOT FEEL GOOD. PT DRY HEAVING AND VOMITING BILE. STATES SHE HAS NOT HAD ANY RELIEF FROM BEING NAUSEOUS ALL DAY.
[2025-02-07 23:30] VITALS: BP 204/116; PULSE 116; RESP 16; TEMP 37; O2SAT 93
[2025-02-08] VITALS (22 sets, daily range): BP systolic 136–179; BP diastolic 76–96; PULSE 90–106; RESP 16–18; TEMP 36.3–37; O2SAT 92–100
[2025-02-08] MEDS: HYDROmorphone HCL INJ (*CRX) 1 MG/ML SYR 0.5 MG IV PUSH ×4 (04:35→19:45)
[2025-02-08] MEDS: CENTRAL LINE FLUSH 10 ML IV PUSH ×3 (04:37→21:36)
[2025-02-08 04:48] LABS: Hematocrit 30.2 % (37.0-47.0); Hemoglobin 9.2 g/dL (12.0-15.0); Immature Granulocyte Percent A 0.6 % (0-0.5); Lymphocytes Absolute Auto 0.58 K/mm3 (0.9-3.2); Mean Corpuscular HGB Conc 30.5 g/dl (32-36); Mean Corpuscular Hemoglobin 28.8 pg (26-34); Mean Corpuscular Volume 94.4 fl (80-100); Nucleated Red Blood Cells Absolute Auto 0.000 K/mm3 (0.0-0.012); Nucleated Red Blood Cells Perc 0.0 % (0.0-0.2); Platelet Count Result 273 k/mm3 (150-375); Red Blood Count 3.20 M/mm3 (4.2-5.4); White Blood Count 4.9 K/mm3 (4.5-10.0)
[2025-02-08 04:56] LABS: SPREG INTERNAL CONTROL Positive
[2025-02-08 04:59] LABS: Serum Qual hCG Negative
[2025-02-08 05:03] LABS: Alanine Aminotransferase 77 U/L (6-35); Albumin Level 3.9 g/dL (3.5-5.1); Alkaline Phosphatase 274 U/L (38-126); Anion Gap 16 mmol/L (4-12); Aspartate Amino Transferase 36 U/L (14-36); Bilirubin,Total 0.5 mg/dL (0.2-1.3); Blood Urea Nitrogen 51 mg/dL (7-17); Calcium 8.9 mg/dL (8.4-10.2); Carbon Dioxide 23 mmol/L (22-30); Chloride 97 mmol/L (98-107); Estimated CRCL calculation 11 ml/min; Estimated Glomerular Filt Rate 8; Glucose 422 mg/dL (65-110); Magnesium 2.5 mg/dL (1.6-2.3); Potassium 5.7 mmol/L (3.4-5.0); Sodium 136 mmol/L (137-145); Total Protein 7.1 g/dL (6.3-8.2)
[2025-02-08] MEDS: INSULIN ASPART (*BKC) 100 UNITS/ML SUB-Q ×4 (05:03→17:40)
[2025-02-08] MEDS: INSULIN GLARGINE (*BKC) 100 UNITS/ML 18 UNITS SUB-Q (09:42)
[2025-02-08] MEDS: GABAPENTIN 100 MG CAPSULE FEED TUBE ×2 (11:26→17:34)
[2025-02-08] MEDS: DOXYCYCLINE HYCLATE 100 MG TABLET FEED TUBE ×2 (11:27→21:37)
[2025-02-08] MEDS: ESCITALOPRAM OXALATE 10 MG TABLET FEED TUBE (11:27)
[2025-02-08] MEDS: ISOSORBIDE DINITRATE 20 MG TABLET FEED TUBE ×2 (11:27→17:34)
[2025-02-08] MEDS: PANTOPRAZOLE SODIUM IV 40 MG VIAL IV PUSH ×2 (11:28→21:45)
[2025-02-08] MEDS: LOSARTAN POTASSIUM 50 MG TABLET FEED TUBE (11:28)
[2025-02-08] MEDS: EUCERIN CREAM 120 GM JAR 1 APPLIC TOPICAL (11:29)
--- NOTE | 2025-02-08 11:40 | PM.IMPN ---
Progress Note: A&P Assessment and Plan (1) Nausea & vomiting: Qualifiers: Vomiting type: unspecified Qualified Code(s): R11.2 - Nausea with vomiting, unspecified Code(s): R11.2 - Nausea with vomiting, unspecified Status: Acute Assessment and Plan: History of chronic nausea and vomiting with known gastroparesis. History of gastroparesis on GJ tube placement and gastric pacemaker Persistent abdominal pain requiring frequent dilaudid use. CT C/A/P showing persistent LLL airspace disease and mild adenopathy. The LLL PNA initally noted by CT on 12/23/24 but no prior imaging to review. On tube feeds at night but now refusing. Narcotics may be contributing to her nausea. Consider recurrent DKA but felt less likely. Discussed with her at length about this with plans to wean narcotics off. Contineu Zofran prn. Add phenergan. Repeat BMP after HD. (2) DKA, type 1: Qualifiers: Diabetes mellitus complication detail: without coma Qualified Code(s): E10.10 - Type 1 diabetes mellitus with ketoacidosis without coma Code(s): E10.10 - Type 1 diabetes mellitus with ketoacidosis without coma Status: Acute Assessment and Plan: DKA on presentation Pt was not given given IVF due to ESRD DKA protocol with insulin infusion and Q1H glucose monitoring Anion gap closed and patient was transition to subcutaneous insulin Her anion gap metabolic acidosis was complicated by history of end-stage renal disease. She remains stable on SQ insulin; gap higher today at 16. Follow (3) Type 1 diabetes: Qualifiers: Diabetes mellitus complication status: with hyperglycemia Qualified Code(s): E10.65 - Type 1 diabetes mellitus with hyperglycemia Code(s): E10.9 - Type 1 diabetes mellitus without complications Status: Chronic Assessment and Plan: A1c 8.4 last month. She takes 15 units Lantus at home but currently on 18 unit lantus daily. She gets tube feeds overnight and is on Novolog Q6hr (except at noon which is PRN if she eats). The patient's blood glucose was reviewed on 02/08 Glucose was higher overnight and this morning despite being off her tube feedings. Probably stress response. Continue AccuCheks covering with sliding scale. Hypoglycemia protocol available as needed. Glucose has since trended down so continue current treatment plan (4) End stage renal disease on dialysis: Code(s): N18.6 - End stage renal disease; Z99.2 - Dependence on renal dialysis Status: Acute Assessment and Plan: Inpatient dialysis per Nephrology Normally on schedule HD planned for today. (5) SIRS (systemic inflammatory response syndrome): Code(s): R65.10 - Systemic inflammatory response syndrome (SIRS) of non-infectious origin without acute organ dysfunction Status: Acute Assessment and Plan: Findings suggestive of sirs likely from DKA. Procalcitonin level is 2.5 but patient was afebrile with normal WBC count. Abx were held. BCX negative. Urine culture mixed urogenital lupe 25-50 K. MRSA nasal swab negative. CT with findings of left lower lobe pneumonia but this seems more of a chronic finding and not much change since Dec. Probably more likely scarring. Started ceftriaxone and doxycycline 02/05/25 continue current antibiotics. (6) Hypertension: Code(s): I10 - Essential (primary) hypertension Status: Chronic Assessment and Plan: Patient's blood pressure was reviewed on 02/08 Blood pressure better controlled. On Coreg amlodipine isosorbide and Cozaar Follow Plan DVT prophylaxis -heparin subQ Nutrition -continue Tube Feeds Code Status - Full Code Subjective Date/time seen: 02/08/25 11:40 Interval history: 29yo female with a past medical history of ESRD due to type 1 DM with complications including diabetic peripheral neuropathy and gastroparesis status post recent G-tube placement for decompression in J-tube placement for enteral feeds who presented to the ER with 3 days of nausea vomiting and couple of hours of left-sided chest pain. Patient has keri refusing vital signs, medications and TF due to her nausea and vomiting. Not been out of bed much. Had nausea and vomiting all night last night. RN has not noted as much today. GTube to intermittent suction. Abd pain better today Exam Narrative: AF 98.0 179/96 106 16 92% ra Gen - NARD Chest - left upper chest port in place that is accessed. Right upper chest HD catheter in place. CTA bilaterally. CV - RRR S1/S2 Abd - soft, +BS. G/J tube dressing with yellowish staining. Nontender. Ext - no pedal edema. Neuro - nonfocal Psych - depressed mood Skin - dried eschars to the left and right dorsal foot Objective Data Vital Signs Vital Signs: Vital Signs - 24 hr 02/07/25 12:00 02/07/25 23:30 02/08/25 00:09 Temperature 98.6 F Pulse Rate 110 H 116 H 104 H Respiratory Rate 16 16 Blood Pressure 204/116 H 154/76 H Pulse Oximetry 93 92 Oxygen Delivery 02/08/25 04:41 02/08/25 09:40 02/08/25 11:23 Temperature 98.0 F Pulse Rate 102 H 106 H Respiratory Rate 16 Blood Pressure 178/96 H 179/96 H Pulse Oximetry 92 Oxygen Delivery Room Air Intake/Output Intake/Output: Intake & Output 02/05/25 02/06/25 02/07/25 02/08/25 23:59 23:59 23:59 23:59 Intake Total 1060 1160 600 50 Output Total 3000 100 Balance 1060 -1840 500 50 Meds/Results Medications: Active Medications Generic Name Dose Route Start Last Admin Trade Name Freq PRN Reason Stop Dose Admin Acetaminophen 650 mg 02/02/25 09:12 Acetaminophen Elixir 325 Mg/10.15 Ml Udc FEED TUBE Q4H PRN Mild Pain (1-3) or Fever Amlodipine Besylate 10 mg 02/02/25 09:00 02/07/25 16:07 Amlodipine Besylate 10 Mg Tablet FEED TUBE Not Given DAILY JAYME Carvedilol 12.5 mg 02/02/25 09:00 02/07/25 22:56 Carvedilol 12.5 Mg Tablet FEED TUBE Not Given Q12H JAYME Dextrose 12.5 gm 01/30/25 14:22 02/06/25 17:11 Dextrose 50% 25 Gm/50 Ml Syringe IV PUSH 12.5 gm PRN PRN Administration Hypoglycemia Protocol Diazepam 5 mg 01/29/25 22:29 02/07/25 23:24 Diazepam Inj (*Crx) 10 Mg/2 Ml Syringe IV PUSH 5 mg Q6H PRN Administration Intractable nausea vomiting Diphenhydramine HCl 25 mg 02/08/25 07:02 02/08/25 09:40 Diphenhydramine Hcl Inj 50 Mg/Ml Vial IV PUSH 25 mg Q4H PRN Administration Itching Doxycycline Hyclate 100 mg 02/07/25 09:00 02/07/25 22:57 Doxycycline Hyclate 100 Mg Tablet FEED TUBE 02/10/25 09:01 Not Given Q12HR JAYME Epoetin Live-epbx 10,000 units 02/08/25 18:00 Epoetin Live-Epbx 10,000 Units/Ml Vial IV PUSH 02/08/25 18:01 ONCE ONE Escitalopram Oxalate 10 mg 02/02/25 09:00 02/07/25 16:07 Escitalopram Oxalate 10 Mg Tablet FEED TUBE Not Given DAILY [facility] Gabapentin 100 mg 02/02/25 09:00 02/07/25 17:52 Gabapentin 100 Mg Capsule FEED TUBE Not Given TID [facility] Glucagon 1 mg 01/30/25 14:22 Glucagon For Inj 1 Mg Vial IM PRN PRN Hypoglycemia Protocol Glucose 15 gm 01/30/25 14:22 Glucose Oral Gel 15 Gm Of Glucse In 37.5 Gm Tube PO PRN PRN Hypoglycemia Protocol Heparin Sodium (Beef Lung) 50 units 01/31/25 09:00 02/08/25 09:31 Heparin Flush 50 Units/5 Ml Syringe IV PUSH Not Given QAM [facility] Heparin Sodium (Beef Lung) 50 units 01/30/25 10:15 02/04/25 12:47 Heparin Flush 50 Units/5 Ml Syringe IV PUSH 50 units PRN PRN Administration after intermittent infusion Heparin Sodium (Beef Lung) 50 units 01/30/25 10:15 02/08/25 04:37 Heparin Flush 50 Units/5 Ml Syringe IV PUSH 50 units PRN PRN Administration after blood draws Heparin Sodium (Porcine) 5,000 units 01/30/25 09:00 02/08/25 09:31 Heparin Sodium 5,000 Units/Ml Vial SUB-Q Not Given Q12HR [facility] Heparin Sodium (Porcine) 500 units 01/30/25 10:15 Heparin Sodium Lock Flush 500 Units/5 Ml Syringe IV PUSH PRN PRN see comments below Hydromorphone HCl 0.5 mg 02/07/25 13:46 02/08/25 09:39 Hydromorphone Hcl Inj (*Crx) 1 Mg/Ml Syr IV PUSH 0.5 mg Q4H PRN Administration Pain Rated 7-10 Albumin Human 50 mls @ 999 mls/hr 01/30/25 05:27 Albutein IVPB 03/01/25 05:26 Q10M PRN HYPOTENSION Dextrose 1,000 mls @ 100 mls/hr 01/30/25 14:22 Dextrose 5% 1,000 Ml IVPB PRN PRN Hypoglycemia Protocol Ceftriaxone Sodium 1 gm/ 50 mls @ 100 mls/hr 02/05/25 15:00 02/07/25 15:49 Sodium Chloride IVPB 02/09/25 15:29 Infused Q24H JAYME Infusion Insulin Aspart 3 units 02/01/25 18:00 02/08/25 05:03 Insulin Aspart (*Bkc) 100 Units/Ml SUB-Q 3 units TID@0000,0600,1800 JAYME Administration Insulin Aspart 2 - 5 units 02/02/25 08:00 02/08/25 09:41 Insulin Aspart (*Bkc) 100 Units/Ml SUB-Q 4 units TIDWM JAYME Administration Protocol Insulin Aspart 3 units 02/02/25 12:00 Insulin Aspart (*Bkc) 100 Units/Ml SUB-Q DAILY@1200 PRN ONLY IF PT EATS LUNCH Insulin Glargine 18 units 02/05/25 09:00 02/08/25 09:42 Insulin Glargine (*Bkc) 100 Units/Ml SUB-Q 18 units DAILY JAYME Administration Isosorbide Dinitrate 20 mg 02/04/25 17:00 02/07/25 17:52 Isosorbide Dinitrate 20 Mg Tablet FEED TUBE Not Given TID JAYME Losartan Potassium 50 mg 02/08/25 09:00 Losartan Potassium 50 Mg Tablet FEED TUBE DAILY JAYME Miscellaneous Information 1 each 02/02/25 08:57 Pharmacist Communication Order XX 03/04/25 08:56 ONCE JAYME Miscellaneous Information 1 each 02/07/25 00:01 Please Renew Diazepam. Per [employer] Procedure, It Will Discontinue If Not Renewed. XX 03/09/25 00:00 CLARIFY JAYME Multi-Ingred Cream/Lotion/Oil/Oint 1 applic 02/08/25 09:00 Eucerin Cream 120 Gm Jar TOPICAL DAILY JAYME Ondansetron HCl 4 mg 01/30/25 18:35 02/07/25 09:53 Ondansetron Inj 4 Mg/2 Ml Vial IV PUSH 4 mg Q4H PRN Administration Nausea And Vomiting Oxycodone/Acetaminophen 1 tablet 02/08/25 07:01 Oxycodone/Acetaminophen (*Crx) 5-325 Mg Tablet FEED TUBE Q4H PRN Pain Rated 4-6 Pantoprazole Sodium 40 mg 01/30/25 09:00 02/07/25 22:57 Pantoprazole Sodium Iv 40 Mg Vial IV PUSH Not Given Q12HR JAYME Sodium Chloride 10 ml 01/30/25 14:00 02/08/25 04:37 Central Line Flush IV PUSH 10 ml Q8HR JAYME Administration Radiology Results: ITS Impressions Chest X-Ray 02/02/25 20:02 IMPRESSION: No acute pulmonary findings. Chest/Abdomen/Pelvis CT 02/05/25 07:39 IMPRESSION: 1. Persistent airspace and groundglass opacities in left lung lower lobe with volume loss, consistent with pneumonia versus atelectasis/scarring. 2. Mild mediastinal, retroperitoneal, and pelvic lymphadenopathy, likely reactive. Labs Labs: Laboratory Results - last 24 hr 02/07/25 02/07/25 02/07/25 11:36 16:03 23:21 WBC RBC Hgb Hct MCV MCH MCHC RDW Plt Count MPV Immature Gran % (Auto) Neut % (Auto) Lymph % (Auto) [place]arrard % (Auto) Eos % (Auto) Baso % (Auto) Lymph # (Auto) [place] # (Auto) Eos # (Auto) Baso # (Auto) Abs Immat Gran (auto) Absolute Neuts (auto) Absolute Nucleated RBC Nucleated RBC % Sodium Potassium Chloride Carbon Dioxide Anion Gap BUN Creatinine Estim Creat Clear Calc Estimated GFR Glucose POC Capillary Glucose 181 H 191 H 291 H Calcium Phosphorus Magnesium Total Bilirubin AST ALT Alkaline Phosphatase Total Protein Albumin Serum HCG, Qual 02/08/25 02/08/25 02/08/25 04:34 04:35 07:49 WBC 4.9 RBC 3.20 L Hgb 9.2 L Hct 30.2 L MCV 94.4 MCH 28.8 MCHC 30.5 L RDW 16.8 H Plt Count 273 MPV 10.7 H Immature Gran % (Auto) 0.6 H Neut % (Auto) 82.2 H Lymph % (Auto) 11.9 L [place]ard % (Auto) 4.5 Eos % (Auto) 0.4 Baso % (Auto) 0.4 Lymph # (Auto) 0.58 L [place] # (Auto) 0.2 Eos # (Auto) 0.0 Baso # (Auto) 0.0 Abs Immat Gran (auto) 0.03 Absolute Neuts (auto) 4.0 Absolute Nucleated RBC 0.000 Nucleated RBC % 0.0 Sodium 136 L Potassium 5.7 H Chloride 97 L Carbon Dioxide 23 Anion Gap 16 H BUN 51 H D Creatinine 6.32 H Estim Creat Clear Calc 11 Estimated GFR 8 L Glucose 422 H POC Capillary Glucose 362 H 403 H 348 H Calcium 8.9 Phosphorus 4.6 H Magnesium 2.5 H Total Bilirubin 0.5 AST 36 ALT 77 H Alkaline Phosphatase 274 H Total Protein 7.1 Albumin 3.9 Serum HCG, Qual Negative
--- NOTE | 2025-02-08 14:40 | P.PNNP_ITS ---
Progress Note: A&P Assessment and Plan (1) End stage renal disease: Code(s): N18.6 - End stage renal disease Status: Chronic Assessment and Plan: * HD today * continue //Wednesday dialysis schedule while hospitalized * follow electrolytes, volume status, and clearance * outpatient dialysis clinic = [facility] in [place] * primary an/ssn 2 4 operator = Dr. Odilon Tellez (2) DKA (diabetic ketoacidosis): Qualifiers: Diabetes mellitus complication detail: without coma Diabetes mellitus type: type 1 Qualified Code(s): E10.10 - Type 1 diabetes mellitus with ketoacidosis without coma Code(s): E11.10 - Type 2 diabetes mellitus with ketoacidosis without coma Status: Resolved Assessment and Plan: * resolved * as noted by evaluation in ER * recurrent and multiple ER visits/hospitalizations for this problems (usually gets most of her care at [facility] and more recently at [facility]) * s/p insulin gtt and weaned off * transitioned to SQ insulin (3) Nausea & vomiting: Qualifiers: Vomiting type: unspecified Qualified Code(s): R11.2 - Nausea with vomiting, unspecified Code(s): R11.2 - Nausea with vomiting, unspecified Status: Acute Assessment and Plan: * chronic and long standing issue (per patient and review of records) * cyclic in nature * thought to be secondary to diabetic gastroparesis * s/p recent G-J-tube placement to ensure adequate/supplemental nutrition given this issue * continue oral intake and supplement tube feeds as needed (4) Hyperkalemia: Code(s): E87.5 - Hyperkalemia Status: Acute Assessment and Plan: * fluctuates - note more so on the two day stretch (from Wednesday -> Wednesday) with regard to dialysis treatments * as noted by admission labs and AM labs on 01/30 * corrected with dialysis * follow trend (5) Diabetic gastroparesis: Code(s): E11.43 - Type 2 diabetes mellitus with diabetic autonomic (poly)neuropathy; K31.84 - Gastroparesis Status: Acute Assessment and Plan: * known and long standing issue * likely precipiting factor for admission symptoms (6) Anemia: Code(s): D64.9 - Anemia, unspecified Status: Chronic Assessment and Plan: * due to ESRD * Epogen with HD * follow trend of H/H (7) Hypertension: Code(s): I10 - Essential (primary) hypertension Status: Chronic Assessment and Plan: * quite elevated on admission * elevated in AM and improves over the day * on home medications * consider titration of losartan versus isosorbide dinitrate as needed * follow trend of hemodynamics (8) Type 1 diabetes: Qualifiers: Diabetes mellitus complication status: with hyperglycemia Qualified Code(s): E10.65 - Type 1 diabetes mellitus with hyperglycemia Code(s): E10.9 - Type 1 diabetes mellitus without complications Status: Chronic Assessment and Plan: * see #1 * follow accu-cheks * on SQ insulin (SSI and Lantus) * glycemic control per hospitalist Will continue to follow. Subjective Date/time seen: 02/08/25 14:40 Interval history: Follow-up for end stage renal disease on hemodialysis. Tolerating dialysis treatment at the time of my visit (seen on HD at 2:30pm); according to nursing, has been refusing vital signs, medications, and tube feeds due to persistent nausea and vomiting; mostly bed bound as well; abdominal pain slightly better when seen. Exam Narrative: General: WD/WN female in NAD Heart: normal S1 and S2; no rub Lungs: decreased at bases Abdomen: soft, nontender, nondistended, positive bowel sounds Extremities: no cyanosis or clubbing; no edema Skin: no rash Objective Data Vital Signs Vital Signs: Vital Signs Temp Pulse Resp BP Pulse Ox O2 Del Method 02/08/25 14:30 95 147/83 H 02/08/25 14:15 93 148/92 H 02/08/25 14:02 93 150/86 H 02/08/25 14:01 98.2 F 92 18 146/84 H 98 02/08/25 11:26 101 H 02/08/25 11:23 106 H 179/96 H 02/08/25 09:40 Room Air 02/08/25 04:41 98.0 F 102 H 16 178/96 H 92 02/08/25 00:09 104 H 16 154/76 H 92 02/07/25 23:30 98.6 F 116 H 16 204/116 H 93 Intake/Output Intake/Output: Intake & Output 02/05/25 02/06/25 02/07/25 02/08/25 23:59 23:59 23:59 23:59 Intake Total 1060 1160 600 340 Output Total 3000 100 1942 Balance 1060 -1840 500 -1602 Meds/Results Medications: Active Medications Generic Name Dose Route Start Last Admin Trade Name Freq PRN Reason Stop Dose Admin Acetaminophen 650 mg 02/02/25 09:12 Acetaminophen Elixir 325 Mg/10.15 Ml Udc FEED TUBE Q4H PRN Mild Pain (1-3) or Fever Amlodipine Besylate 10 mg 02/02/25 09:00 02/08/25 11:26 Amlodipine Besylate 10 Mg Tablet FEED TUBE 10 mg DAILY JAYME Administration Carvedilol 12.5 mg 02/02/25 09:00 02/08/25 11:26 Carvedilol 12.5 Mg Tablet FEED TUBE 12.5 mg Q12H JAYME Administration Dextrose 12.5 gm 01/30/25 14:22 02/06/25 17:11 Dextrose 50% 25 Gm/50 Ml Syringe IV PUSH 12.5 gm PRN PRN Administration Hypoglycemia Protocol Diazepam 5 mg 01/29/25 22:29 02/07/25 23:24 Diazepam Inj (*Crx) 10 Mg/2 Ml Syringe IV PUSH 5 mg Q6H PRN Administration Intractable nausea vomiting Diphenhydramine HCl 25 mg 02/08/25 07:02 02/08/25 17:35 Diphenhydramine Hcl Inj 50 Mg/Ml Vial IV PUSH 25 mg Q4H PRN Administration Itching Doxycycline Hyclate 100 mg 02/07/25 09:00 02/08/25 11:27 Doxycycline Hyclate 100 Mg Tablet FEED TUBE 02/10/25 09:01 100 mg Q12HR JAYME Administration Escitalopram Oxalate 10 mg 02/02/25 09:00 02/08/25 11:27 Escitalopram Oxalate 10 Mg Tablet FEED TUBE 10 mg DAILY JAYME Administration Gabapentin 100 mg 02/02/25 09:00 02/08/25 17:34 Gabapentin 100 Mg Capsule FEED TUBE 100 mg TID JAYME Administration Glucagon 1 mg 01/30/25 14:22 Glucagon For Inj 1 Mg Vial IM PRN PRN Hypoglycemia Protocol Glucose 15 gm 01/30/25 14:22 Glucose Oral Gel 15 Gm Of Glucse In 37.5 Gm Tube PO PRN PRN Hypoglycemia Protocol Heparin Sodium (Beef Lung) 50 units 01/31/25 09:00 02/08/25 09:31 Heparin Flush 50 Units/5 Ml Syringe IV PUSH Not Given QAM JAYME Heparin Sodium (Beef Lung) 50 units 01/30/25 10:15 02/04/25 12:47 Heparin Flush 50 Units/5 Ml Syringe IV PUSH 50 units PRN PRN Administration after intermittent infusion Heparin Sodium (Beef Lung) 50 units 01/30/25 10:15 02/08/25 04:37 Heparin Flush 50 Units/5 Ml Syringe IV PUSH 50 units PRN PRN Administration after blood draws Heparin Sodium (Porcine) 5,000 units 01/30/25 09:00 02/08/25 09:31 Heparin Sodium 5,000 Units/Ml Vial SUB-Q Not Given Q12HR [facility] Heparin Sodium (Porcine) 500 units 01/30/25 10:15 Heparin Sodium Lock Flush 500 Units/5 Ml Syringe IV PUSH PRN PRN see comments below Hydromorphone HCl 0.5 mg 02/08/25 11:41 02/08/25 13:23 Hydromorphone Hcl Inj (*Crx) 1 Mg/Ml Syr IV PUSH 0.5 mg Q6H PRN Administration Pain Rated 7-10 Albumin Human 50 mls @ 999 mls/hr 01/30/25 05:27 Albutein IVPB 03/01/25 05:26 Q10M PRN HYPOTENSION Dextrose 1,000 mls @ 100 mls/hr 01/30/25 14:22 Dextrose 5% 1,000 Ml IVPB PRN PRN Hypoglycemia Protocol Ceftriaxone Sodium 1 gm/ 50 mls @ 100 mls/hr 02/05/25 15:00 02/08/25 17:34 Sodium Chloride IVPB 02/09/25 15:29 100 mls/hr Q24H JAYME Administration Insulin Aspart 3 units 02/01/25 18:00 02/08/25 17:40 Insulin Aspart (*Bkc) 100 Units/Ml SUB-Q 3 units TID@0000,0600,1800 JAYME Administration Insulin Aspart 2 - 5 units 02/02/25 08:00 02/08/25 17:27 Insulin Aspart (*Bkc) 100 Units/Ml SUB-Q Not Given TIDWM [facility] Protocol Insulin Aspart 3 units 02/02/25 12:00 Insulin Aspart (*Bkc) 100 Units/Ml SUB-Q DAILY@1200 PRN ONLY IF PT EATS LUNCH Insulin Glargine 18 units 02/05/25 09:00 02/08/25 09:42 Insulin Glargine (*Bkc) 100 Units/Ml SUB-Q 18 units DAILY JAYME Administration Isosorbide Dinitrate 20 mg 02/04/25 17:00 02/08/25 17:34 Isosorbide Dinitrate 20 Mg Tablet FEED TUBE 20 mg TID JAYME Administration Losartan Potassium 50 mg 02/08/25 09:00 02/08/25 11:28 Losartan Potassium 50 Mg Tablet FEED TUBE 50 mg DAILY JAYME Administration Miscellaneous Information 1 each 02/02/25 08:57 Pharmacist Communication Order XX 03/04/25 08:56 ONCE JAYME Miscellaneous Information 1 each 02/07/25 00:01 Please Renew Diazepam. Per [employer] Procedure, It Will Discontinue If Not Renewed. XX 03/09/25 00:00 CLARIFY JAYME Multi-Ingred Cream/Lotion/Oil/Oint 1 applic 02/08/25 09:00 02/08/25 11:29 Eucerin Cream 120 Gm Jar TOPICAL 1 applic DAILY JAYME Administration Ondansetron HCl 4 mg 01/30/25 18:35 02/07/25 09:53 Ondansetron Inj 4 Mg/2 Ml Vial IV PUSH 4 mg Q4H PRN Administration Nausea And Vomiting Oxycodone/Acetaminophen 1 tablet 02/08/25 07:01 Oxycodone/Acetaminophen (*Crx) 5-325 Mg Tablet FEED TUBE Q4H PRN Pain Rated 4-6 Pantoprazole Sodium 40 mg 01/30/25 09:00 02/08/25 11:28 Pantoprazole Sodium Iv 40 Mg Vial IV PUSH 40 mg Q12HR JAYME Administration Promethazine HCl 25 mg 02/08/25 18:01 Promethazine Hcl 25 Mg Tablet FEED TUBE Q4H PRN Nausea And Vomiting Sodium Chloride 10 ml 01/30/25 14:00 02/08/25 13:24 Central Line Flush IV PUSH 10 ml Q8HR JAYME Administration Radiology Results: ITS Impressions Chest X-Ray 02/02/25 20:02 IMPRESSION: No acute pulmonary findings. Chest/Abdomen/Pelvis CT 02/05/25 07:39 IMPRESSION: 1. Persistent airspace and groundglass opacities in left lung lower lobe with volume loss, consistent with pneumonia versus atelectasis/scarring. 2. Mild mediastinal, retroperitoneal, and pelvic lymphadenopathy, likely reactive. Labs Labs: Laboratory Tests 02/08/25 04:35 WBC 4.9 Hgb 9.2 L Hct 30.2 L Plt Count 273 Sodium 136 L Potassium 5.7 H Chloride 97 L Carbon Dioxide 23 Anion Gap 16 H BUN 51 H D Creatinine 6.32 H Estim Creat Clear Calc 11 Estimated GFR 8 L Glucose 422 H POC Capillary Glucose 403 H Calcium 8.9 Phosphorus 4.6 H Magnesium 2.5 H Total Bilirubin 0.5 AST 36 ALT 77 H Alkaline Phosphatase 274 H Total Protein 7.1 Albumin 3.9 Serum HCG, Qual Negative
[2025-02-08] MEDS: EPOETIN ALFA-EPBX 10,000 UNITS/ML VIAL 10000 UNITS IV PUSH (16:45)
[2025-02-08] MEDS: SODIUM CHLORIDE 0.9% IV 1,000 ML 999 ML IV CONT (17:34)
[2025-02-08] MEDS: cefTRIAXone 1 GM in SODIUM CHLORIDE 0.9% IV 50 ML 100 ML IVPB (17:34)
[2025-02-08 19:52] LABS: Anion Gap 10 mmol/L (4-12); Blood Urea Nitrogen 19 mg/dL (7-17); Calcium 8.7 mg/dL (8.4-10.2); Carbon Dioxide 30 mmol/L (22-30); Chloride 96 mmol/L (98-107); Estimated CRCL calculation 23 ml/min; Estimated Glomerular Filt Rate 19; Glucose 106 mg/dL (65-110); Potassium 3.4 mmol/L (3.4-5.0); Sodium 136 mmol/L (137-145)
[2025-02-09] VITALS (7 sets, daily range): BP systolic 153–207; BP diastolic 79–111; PULSE 96–119; RESP 18–20; TEMP 36.1–37; O2SAT 98–100
[2025-02-09] MEDS: HYDROmorphone HCL INJ (*CRX) 1 MG/ML SYR 0.5 MG IV PUSH ×3 (02:07→21:27)
[2025-02-09] MEDS: diazePAM INJ (*CRX) 10 MG/2 ML SYRINGE 5 MG IV PUSH (03:51)
[2025-02-09] MEDS: CENTRAL LINE FLUSH 10 ML IV PUSH ×3 (05:16→21:17)
[2025-02-09] MEDS: INSULIN ASPART (*BKC) 100 UNITS/ML SUB-Q ×3 (05:18→12:11)
[2025-02-09] MEDS: ONDANSETRON INJ 4 MG/2 ML VIAL IV PUSH ×2 (05:21→09:15)
--- NOTE | 2025-02-09 06:52 | PC.NURSE ---
ATTEMPTED MULTIPLE TIMES TO COLLECT PT MORNING BLOOD DRAW EACH TIME SHE REFUSED AND ASKED ME TO COME BACK. PT HAS DONE THE SAME THING WITH THE PCT TRYING TO OBTAIN HER VITALS. PT CONTINUES TO DRY HEAVE AND VOMIT.
[2025-02-09 07:09] LABS: Hematocrit 33.8 % (37.0-47.0); Hemoglobin 10.4 g/dL (12.0-15.0); Immature Granulocyte Percent A 0.4 % (0-0.5); Lymphocytes Absolute Auto 0.84 K/mm3 (0.9-3.2); Mean Corpuscular HGB Conc 30.8 g/dl (32-36); Mean Corpuscular Hemoglobin 28.7 pg (26-34); Mean Corpuscular Volume 93.1 fl (80-100); Nucleated Red Blood Cells Absolute Auto 0.000 K/mm3 (0.0-0.012); Nucleated Red Blood Cells Perc 0.0 % (0.0-0.2); Platelet Count Result 316 k/mm3 (150-375); Red Blood Count 3.63 M/mm3 (4.2-5.4); White Blood Count 7.5 K/mm3 (4.5-10.0)
[2025-02-09 07:46] LABS: Albumin Level 4.0 g/dL (3.5-5.1); Anion Gap 13 mmol/L (4-12); Blood Urea Nitrogen 30 mg/dL (7-17); Calcium 8.8 mg/dL (8.4-10.2); Carbon Dioxide 27 mmol/L (22-30); Chloride 96 mmol/L (98-107); Estimated CRCL calculation 14 ml/min; Estimated Glomerular Filt Rate 11; Glucose 363 mg/dL (65-110); Magnesium 2.2 mg/dL (1.6-2.3); Potassium 4.3 mmol/L (3.4-5.0); Sodium 136 mmol/L (137-145)
[2025-02-09] MEDS: ESCITALOPRAM OXALATE 10 MG TABLET FEED TUBE (09:13)
[2025-02-09] MEDS: ISOSORBIDE DINITRATE 20 MG TABLET FEED TUBE ×3 (09:13→17:07)
[2025-02-09] MEDS: DOXYCYCLINE HYCLATE 100 MG TABLET FEED TUBE ×2 (09:13→21:17)
[2025-02-09] MEDS: GABAPENTIN 100 MG CAPSULE FEED TUBE ×3 (09:13→17:07)
[2025-02-09] MEDS: LOSARTAN POTASSIUM 50 MG TABLET FEED TUBE (09:13)
[2025-02-09] MEDS: PANTOPRAZOLE SODIUM IV 40 MG VIAL IV PUSH ×2 (09:15→21:15)
[2025-02-09] MEDS: INSULIN GLARGINE (*BKC) 100 UNITS/ML 18 UNITS SUB-Q (09:27)
[2025-02-09] MEDS: EUCERIN CREAM 120 GM JAR 1 APPLIC TOPICAL (09:35)
--- NOTE | 2025-02-09 11:20 | PCNFU ---
Nutrition Follow-Up Complete: Inadequate oral intake related to altered GI function as evidenced by need for full tube feeds Goal:Meet estimated nutrition needs Patient has limited progress towards goals. We will continue current goal. Pt current nutrition is Regular with Nocturnal tube feedings of Nepro at 45 ml/hr. Last recorded weight is 66.7 kg, down from 70 kg. Bowel Motility: Last reported BM 02/08 Labs Reviewed:Glu 363, Cr 4.81, BUN 30, GFR 11, Hct 33.8, Hgb 10.4 Meds Noted: Lantus, Heparin, Protonix, NovoLog, Lexapro, Benadryl Skin: WNL Additional Notes: Patient still having nausea and vomiting. Tube feedings of Nepro at 45 ml/hr stopped at 2am this morning due N/V. She ate about 50% of lunch meal yesterday and did take meds. 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 Flush 30 ml q 4 hours. If oral intake does not improve would recommend running tube feedings continuous at 45 ml/hr, which will provide 1782 kcal and 80 gm protein at 22 hours daily. Monitoring tube feeding tolerance, labs, weights, meds, output, plan of care Follow up Wednesday/Wednesday. Daily rounds
--- NOTE | 2025-02-09 12:16 | P.PNIM_ITS ---
Progress Note: A&P Assessment and Plan (1) Nausea & vomiting: Qualifiers: Vomiting type: unspecified Qualified Code(s): R11.2 - Nausea with vomiting, unspecified Code(s): R11.2 - Nausea with vomiting, unspecified Status: Acute Assessment and Plan: History of chronic nausea and vomiting with known gastroparesis s/p GJ tube placement and gastric pacemaker Persistent abdominal pain requiring frequent dilaudid use. CT C/A/P showing persistent LLL airspace disease and mild adenopathy. The LLL PNA initially noted by CT on 12/23/24 but no prior imaging to review. On tube feeds at night but now refusing at times. Narcotics may be contributing to her nausea as a side effect and slowing her gastric motility. Consider recurrent DKA but felt less likely with normal bicarb today. Discussed with her at length about plan to continue to wean narcotics off. Continue Zofran and phenergan prn. (2) DKA, type 1: Qualifiers: Diabetes mellitus complication detail: without coma Qualified Code(s): E10.10 - Type 1 diabetes mellitus with ketoacidosis without coma Code(s): E10.10 - Type 1 diabetes mellitus with ketoacidosis without coma Status: Acute Assessment and Plan: DKA on presentation Pt was not given given IVF due to ESRD DKA protocol with insulin infusion and Q1H glucose monitoring Anion gap closed and patient was transition to subcutaneous insulin Her anion gap metabolic acidosis was complicated by history of end-stage renal disease. She remains stable on SQ insulin; gap better at 13. Follow (3) Type 1 diabetes: Qualifiers: Diabetes mellitus complication status: with hyperglycemia Qualified Code(s): E10.65 - Type 1 diabetes mellitus with hyperglycemia Code(s): E10.9 - Type 1 diabetes mellitus without complications Status: Chronic Assessment and Plan: A1c 8.4 last month. She takes 15 units Lantus at home but currently on 18U lantus daily. She gets tube feeds overnight and is on Novolog Q6hr (except at noon which is PRN if she eats). The patient's blood glucose was reviewed on 02/09 Glucose higher probably related to improved oral intake. Continue AccuCheks covering with sliding scale. Hypoglycemia protocol available as needed. Advance Novolog and Lantus. (4) End stage renal disease on dialysis: Code(s): N18.6 - End stage renal disease; Z99.2 - Dependence on renal dialysis Status: Acute Assessment and Plan: Inpatient dialysis per Nephrology Normally on schedule HD planned for tomorrow (5) SIRS (systemic inflammatory response syndrome): Code(s): R65.10 - Systemic inflammatory response syndrome (SIRS) of non-infectious origin without acute organ dysfunction Status: Acute Assessment and Plan: Findings suggestive of sirs likely from DKA. Procalcitonin level is 2.5 but patient was afebrile with normal WBC count. Abx were held. BCX negative. Urine culture mixed urogenital lupe 25-50 K. MRSA nasal swab negative. CT with findings of left lower lobe pneumonia but this seems more of a chronic finding and not much change since Dec. Probably more likely scarring. Started ceftriaxone and doxycycline 02/05/25 continue current antibiotics. (6) Hypertension: Code(s): I10 - Essential (primary) hypertension Status: Chronic Assessment and Plan: Patient's blood pressure was reviewed on 02/09 Blood pressure worse today but has been taking her anti-HTN meds intermittently On Coreg, amlodipine, isosorbide and Cozaar Will follow for now since she is feeling better Plan DVT prophylaxis -heparin subQ Nutrition -continue Tube Feeds Code Status - Full Code Subjective Date/time seen: 02/09/25 12:16 Interval history: 29yo female with a past medical history of ESRD due to type 1 DM with complications including diabetic peripheral neuropathy and gastroparesis status post recent G-tube placement for decompression in J-tube placement for enteral feeds who presented to the ER with 3 days of nausea vomiting and couple of hours of left-sided chest pain. Feeling better. Was able to be up walking in the room and able to clean up and take a shower. Did develop recurrent nausea/vomiting overnight. She is able to tolerate some oral intake Exam Narrative: AF 98.6 159/79 111 20 99% ra Gen - NARD Chest - left upper chest port in place that is accessed. Right upper chest HD catheter in place. CTA bilaterally. CV - RRR S1/S2 Abd - soft, +BS. G/J tube in place. Nontender. Ext - no pedal edema. Psych - depressed mood Skin - decreased scale to the feet Objective Data Vital Signs Vital Signs: Vital Signs - 24 hr 02/08/25 14:01 02/08/25 14:02 02/08/25 14:15 Temperature 98.2 F Pulse Rate 92 93 93 Respiratory Rate 18 Blood Pressure 146/84 H 150/86 H 148/92 H Pulse Oximetry 98 Oxygen Delivery 02/08/25 14:30 02/08/25 14:45 02/08/25 15:00 Temperature Pulse Rate 95 95 95 Respiratory Rate Blood Pressure 147/83 H 144/83 H 140/90 Pulse Oximetry Oxygen Delivery 02/08/25 15:15 02/08/25 15:30 02/08/25 15:45 Temperature Pulse Rate 92 93 92 Respiratory Rate Blood Pressure 136/81 136/87 136/82 Pulse Oximetry Oxygen Delivery 02/08/25 16:00 02/08/25 16:15 02/08/25 16:30 Temperature Pulse Rate 93 92 91 Respiratory Rate Blood Pressure 143/81 H 143/93 H 142/88 H Pulse Oximetry Oxygen Delivery 02/08/25 16:45 02/08/25 16:59 02/08/25 17:03 Temperature 98.2 F Pulse Rate 93 92 90 Respiratory Rate 18 Blood Pressure 142/83 H 165/93 H 159/89 H Pulse Oximetry 100 Oxygen Delivery 02/08/25 17:30 02/08/25 20:00 02/08/25 21:38 Temperature 97.3 F L Pulse Rate 94 95 Respiratory Rate 16 Blood Pressure 144/79 H Pulse Oximetry 98 Oxygen Delivery Room Air 02/08/25 21:43 02/09/25 09:00 02/09/25 09:01 Temperature 97.6 F 98.6 F Pulse Rate 95 119 H Respiratory Rate 16 20 Blood Pressure 151/87 H 207/111 H 203/94 H Pulse Oximetry 98 99 Oxygen Delivery 02/09/25 09:05 02/09/25 09:13 02/09/25 10:03 Temperature Pulse Rate 119 H 111 H Respiratory Rate Blood Pressure 159/79 H Pulse Oximetry Oxygen Delivery Room Air Intake/Output Intake/Output: Intake & Output 02/06/25 02/07/25 02/08/25 02/09/25 23:59 23:59 23:59 23:59 Intake Total 1160 600 440 50 Output Total 3000 100 1942 Balance -1840 500 -1502 50 Meds/Results Medications: Active Medications Generic Name Dose Route Start Last Admin Trade Name Freq PRN Reason Stop Dose Admin Acetaminophen 650 mg 02/02/25 09:12 Acetaminophen Elixir 325 Mg/10.15 Ml Udc FEED TUBE Q4H PRN Mild Pain (1-3) or Fever Amlodipine Besylate 10 mg 02/02/25 09:00 02/09/25 09:13 Amlodipine Besylate 10 Mg Tablet FEED TUBE 10 mg DAILY JAYME Administration Carvedilol 12.5 mg 02/02/25 09:00 02/09/25 09:13 Carvedilol 12.5 Mg Tablet FEED TUBE 12.5 mg Q12H JAYME Administration Dextrose 12.5 gm 01/30/25 14:22 02/06/25 17:11 Dextrose 50% 25 Gm/50 Ml Syringe IV PUSH 12.5 gm PRN PRN Administration Hypoglycemia Protocol Diazepam 5 mg 01/29/25 22:29 02/09/25 03:51 Diazepam Inj (*Crx) 10 Mg/2 Ml Syringe IV PUSH 5 mg Q6H PRN Administration Intractable nausea vomiting Diphenhydramine HCl 25 mg 02/08/25 07:02 02/09/25 12:13 Diphenhydramine Hcl Inj 50 Mg/Ml Vial IV PUSH 25 mg Q4H PRN Administration Itching Doxycycline Hyclate 100 mg 02/07/25 09:00 02/09/25 09:13 Doxycycline Hyclate 100 Mg Tablet FEED TUBE 02/10/25 09:01 100 mg Q12HR JAYME Administration Escitalopram Oxalate 10 mg 02/02/25 09:00 02/09/25 09:13 Escitalopram Oxalate 10 Mg Tablet FEED TUBE 10 mg DAILY JAYME Administration Gabapentin 100 mg 02/02/25 09:00 02/09/25 12:13 Gabapentin 100 Mg Capsule FEED TUBE 100 mg TID JAYME Administration Glucagon 1 mg 01/30/25 14:22 Glucagon For Inj 1 Mg Vial IM PRN PRN Hypoglycemia Protocol Glucose 15 gm 01/30/25 14:22 Glucose Oral Gel 15 Gm Of Glucse In 37.5 Gm Tube PO PRN PRN Hypoglycemia Protocol Heparin Sodium (Beef Lung) 50 units 01/31/25 09:00 02/09/25 09:26 Heparin Flush 50 Units/5 Ml Syringe IV PUSH Not Given QAM JAYME Heparin Sodium (Beef Lung) 50 units 01/30/25 10:15 02/04/25 12:47 Heparin Flush 50 Units/5 Ml Syringe IV PUSH 50 units PRN PRN Administration after intermittent infusion Heparin Sodium (Beef Lung) 50 units 01/30/25 10:15 02/08/25 04:37 Heparin Flush 50 Units/5 Ml Syringe IV PUSH 50 units PRN PRN Administration after blood draws Heparin Sodium (Porcine) 5,000 units 01/30/25 09:00 02/09/25 09:31 Heparin Sodium 5,000 Units/Ml Vial SUB-Q Not Given Q12HR JAYME Heparin Sodium (Porcine) 500 units 01/30/25 10:15 Heparin Sodium Lock Flush 500 Units/5 Ml Syringe IV PUSH PRN PRN see comments below Hydromorphone HCl 0.5 mg 02/08/25 11:41 02/09/25 09:09 Hydromorphone Hcl Inj (*Crx) 1 Mg/Ml Syr IV PUSH 0.5 mg Q6H PRN Administration Pain Rated 7-10 Albumin Human 50 mls @ 999 mls/hr 01/30/25 05:27 Albutein IVPB 03/01/25 05:26 Q10M PRN HYPOTENSION Dextrose 1,000 mls @ 100 mls/hr 01/30/25 14:22 Dextrose 5% 1,000 Ml IVPB PRN PRN Hypoglycemia Protocol Ceftriaxone Sodium 1 gm/ 50 mls @ 100 mls/hr 02/05/25 15:00 02/08/25 17:34 Sodium Chloride IVPB 02/09/25 15:29 100 mls/hr Q24H JAYME Administration Insulin Aspart 3 units 02/01/25 18:00 02/09/25 05:18 Insulin Aspart (*Bkc) 100 Units/Ml SUB-Q 3 units TID@0000,0600,1800 JAYME Administration Insulin Aspart 2 - 5 units 02/02/25 08:00 02/09/25 12:11 Insulin Aspart (*Bkc) 100 Units/Ml SUB-Q 4 units TIDWM JAYME Administration Protocol Insulin Aspart 3 units 02/02/25 12:00 Insulin Aspart (*Bkc) 100 Units/Ml SUB-Q DAILY@1200 PRN ONLY IF PT EATS LUNCH Insulin Glargine 18 units 02/05/25 09:00 02/09/25 09:27 Insulin Glargine (*Bkc) 100 Units/Ml SUB-Q 18 units DAILY JAYME Administration Isosorbide Dinitrate 20 mg 02/04/25 17:00 02/09/25 12:13 Isosorbide Dinitrate 20 Mg Tablet FEED TUBE 20 mg TID JAYME Administration Losartan Potassium 50 mg 02/08/25 09:00 02/09/25 09:13 Losartan Potassium 50 Mg Tablet FEED TUBE 50 mg DAILY JAYME Administration Miscellaneous Information 1 each 02/02/25 08:57 Pharmacist Communication Order XX 03/04/25 08:56 ONCE JAYME Miscellaneous Information 1 each 02/07/25 00:01 Please Renew Diazepam. Per [employer] Procedure, It Will Discontinue If Not Renewed. XX 03/09/25 00:00 CLARIFY JAYME Multi-Ingred Cream/Lotion/Oil/Oint 1 applic 02/08/25 09:00 02/09/25 09:35 Eucerin Cream 120 Gm Jar TOPICAL 1 applic DAILY JAYME Administration Ondansetron HCl 4 mg 01/30/25 18:35 02/09/25 09:15 Ondansetron Inj 4 Mg/2 Ml Vial IV PUSH 4 mg Q4H PRN Administration Nausea And Vomiting Oxycodone/Acetaminophen 1 tablet 02/08/25 07:01 Oxycodone/Acetaminophen (*Crx) 5-325 Mg Tablet FEED TUBE Q4H PRN Pain Rated 4-6 Pantoprazole Sodium 40 mg 01/30/25 09:00 02/09/25 09:15 Pantoprazole Sodium Iv 40 Mg Vial IV PUSH 40 mg Q12HR JAYME Administration Promethazine HCl 25 mg 02/08/25 18:01 Promethazine Hcl 25 Mg Tablet FEED TUBE Q4H PRN Nausea And Vomiting Sodium Chloride 10 ml 01/30/25 14:00 02/09/25 09:16 Central Line Flush IV PUSH 10 ml Q8HR JAYME Administration Radiology Results: ITS Impressions Chest X-Ray 02/02/25 20:02 IMPRESSION: No acute pulmonary findings. Chest/Abdomen/Pelvis CT 02/05/25 07:39 IMPRESSION: 1. Persistent airspace and groundglass opacities in left lung lower lobe with volume loss, consistent with pneumonia versus atelectasis/scarring. 2. Mild mediastinal, retroperitoneal, and pelvic lymphadenopathy, likely reactive. Labs Labs: Laboratory Results - last 24 hr 02/08/25 02/08/25 02/08/25 17:26 18:59 19:48 WBC RBC Hgb Hct MCV MCH MCHC RDW Plt Count MPV Immature Gran % (Auto) Neut % (Auto) Lymph % (Auto) [place] % (Auto) Eos % (Auto) Baso % (Auto) Lymph # (Auto) [place] # (Auto) Eos # (Auto) Baso # (Auto) Abs Immat Gran (auto) Absolute Neuts (auto) Absolute Nucleated RBC Nucleated RBC % Sodium 136 L Potassium 3.4 Chloride 96 L Carbon Dioxide 30 Anion Gap 10 BUN 19 H D Creatinine 2.92 H Estim Creat Clear Calc 23 Estimated GFR 19 L Glucose 106 POC Capillary Glucose 107 H 102 Calcium 8.7 Phosphorus Magnesium Albumin 02/08/25 02/09/25 02/09/25 23:54 05:16 07:01 WBC 7.5 RBC 3.63 L Hgb 10.4 L Hct 33.8 L MCV 93.1 MCH 28.7 MCHC 30.8 L RDW 17.0 H Plt Count 316 MPV 10.6 H Immature Gran % (Auto) 0.4 Neut % (Auto) 78.1 H Lymph % (Auto) 11.3 L [place] % (Auto) 6.8 Eos % (Auto) 3.1 Baso % (Auto) 0.3 Lymph # (Auto) 0.84 L [place] # (Auto) 0.5 Eos # (Auto) 0.2 Baso # (Auto) 0.0 Abs Immat Gran (auto) 0.03 Absolute Neuts (auto) 5.8 Absolute Nucleated RBC 0.000 Nucleated RBC % 0.0 Sodium 136 L Potassium 4.3 Chloride 96 L Carbon Dioxide 27 Anion Gap 13 H BUN 30 H D Creatinine 4.81 H Estim Creat Clear Calc 14 Estimated GFR 11 L Glucose 363 H POC Capillary Glucose 243 H 416 H Calcium 8.8 Phosphorus 3.8 Magnesium 2.2 Albumin 4.0 02/09/25 02/09/25 08:52 11:58 WBC RBC Hgb Hct MCV MCH MCHC RDW Plt Count MPV Immature Gran % (Auto) Neut % (Auto) Lymph % (Auto) [place] % (Auto) Eos % (Auto) Baso % (Auto) Lymph # (Auto) [place] # (Auto) Eos # (Auto) Baso # (Auto) Abs Immat Gran (auto) Absolute Neuts (auto) Absolute Nucleated RBC Nucleated RBC % Sodium Potassium Chloride Carbon Dioxide Anion Gap BUN Creatinine Estim Creat Clear Calc Estimated GFR Glucose POC Capillary Glucose 409 H 317 H Calcium Phosphorus Magnesium Albumin
--- NOTE | 2025-02-09 12:28 | P.PNNP_ITS ---
Progress Note: A&P Assessment and Plan (1) End stage renal disease: Code(s): N18.6 - End stage renal disease Status: Chronic Assessment and Plan: * HD tomorrow * continue //Wednesday dialysis schedule while hospitalized * follow electrolytes, volume status, and clearance * outpatient dialysis clinic = [facility] in [place] * primary or nurse manager = Dr. Odilon Tellez (2) DKA (diabetic ketoacidosis): Qualifiers: Diabetes mellitus complication detail: without coma Diabetes mellitus type: type 1 Qualified Code(s): E10.10 - Type 1 diabetes mellitus with ketoacidosis without coma Code(s): E11.10 - Type 2 diabetes mellitus with ketoacidosis without coma Status: Resolved Assessment and Plan: * resolved * as noted by evaluation in ER * recurrent and multiple ER visits/hospitalizations for this problems (usually gets most of her care at [facility] and more recently at [facility]) * s/p insulin gtt and weaned off * transitioned to SQ insulin (3) Nausea & vomiting: Qualifiers: Vomiting type: unspecified Qualified Code(s): R11.2 - Nausea with vomiting, unspecified Code(s): R11.2 - Nausea with vomiting, unspecified Status: Acute Assessment and Plan: * chronic and long standing issue (per patient and review of records) * cyclic in nature * thought to be secondary to diabetic gastroparesis * s/p recent G-J-tube placement to ensure adequate/supplemental nutrition given this issue * continue oral intake and supplement tube feeds as needed (4) Hyperkalemia: Code(s): E87.5 - Hyperkalemia Status: Acute Assessment and Plan: * fluctuates - note more so on the two day stretch (from Wednesday -> Wednesday) with regard to dialysis treatments * as noted by admission labs and AM labs on 01/30 * corrected with dialysis * follow trend (5) Diabetic gastroparesis: Code(s): E11.43 - Type 2 diabetes mellitus with diabetic autonomic (poly)neuropathy; K31.84 - Gastroparesis Status: Acute Assessment and Plan: * known and long standing issue * likely precipiting factor for admission symptoms (6) Anemia: Code(s): D64.9 - Anemia, unspecified Status: Chronic Assessment and Plan: * due to ESRD * Epogen with HD * follow trend of H/H (7) Hypertension: Code(s): I10 - Essential (primary) hypertension Status: Chronic Assessment and Plan: * quite elevated on admission * on home medications * titrate losartan, carvedilol, and isosorbide dinitrate as needed * follow trend of hemodynamics (8) Type 1 diabetes: Qualifiers: Diabetes mellitus complication status: with hyperglycemia Qualified Code(s): E10.65 - Type 1 diabetes mellitus with hyperglycemia Code(s): E10.9 - Type 1 diabetes mellitus without complications Status: Chronic Assessment and Plan: * see #1 * follow accu-cheks * on SQ insulin (SSI and Lantus) * glycemic control per hospitalist Will continue to follow. L Subjective Date/time seen: 02/09/25 12:28 Interval history: Follow-up for end stage renal disease on hemodialysis. Tolerated dialysis treatment yesterday without any issue or problems; some improvement in her symptoms but some recurrence of nausea/vomiting overnight but was able to tolerated some oral intake earlier today. Exam 2 Narrative: General: WD/WN female in NAD Heart: normal S1 and S2; no rub Lungs: decreased at bases Abdomen: soft, nontender, nondistended, positive bowel sounds Extremities: no cyanosis or clubbing; no edema Skin: no nodules Objective Data Vital Signs Vital Signs: Vital Signs Temp Pulse Resp BP Pulse Ox O2 Del Method 02/09/25 10:03 111 H 159/79 H 02/09/25 09:13 119 H 02/09/25 09:05 Room Air 02/09/25 09:01 203/94 H 02/09/25 09:00 98.6 F 119 H 20 207/111 H 99 02/08/25 21:43 97.6 F 95 16 151/87 H 98 02/08/25 21:38 95 02/08/25 20:00 Room Air Intake/Output Intake/Output: Intake & Output 02/06/25 02/07/25 02/08/25 02/09/25 23:59 23:59 23:59 23:59 Intake Total 1160 600 490 255 Output Total 3000 100 1942 Balance -1840 500 -1452 255 Meds/Results Medications: Active Medications Generic Name Dose Route Start Last Admin Trade Name Freq PRN Reason Stop Dose Admin Acetaminophen 650 mg 02/02/25 09:12 Acetaminophen Elixir 325 Mg/10.15 Ml Udc FEED TUBE Q4H PRN Mild Pain (1-3) or Fever Amlodipine Besylate 10 mg 02/02/25 09:00 02/09/25 09:13 Amlodipine Besylate 10 Mg Tablet FEED TUBE 10 mg DAILY JAYME Administration Carvedilol 12.5 mg 02/02/25 09:00 02/09/25 09:13 Carvedilol 12.5 Mg Tablet FEED TUBE 12.5 mg Q12H JAYME Administration Dextrose 12.5 gm 01/30/25 14:22 02/06/25 17:11 Dextrose 50% 25 Gm/50 Ml Syringe IV PUSH 12.5 gm PRN PRN Administration Hypoglycemia Protocol Diazepam 5 mg 01/29/25 22:29 02/09/25 03:51 Diazepam Inj (*Crx) 10 Mg/2 Ml Syringe IV PUSH 5 mg Q6H PRN Administration Intractable nausea vomiting Diphenhydramine HCl 25 mg 02/08/25 07:02 02/09/25 17:12 Diphenhydramine Hcl Inj 50 Mg/Ml Vial IV PUSH 25 mg Q4H PRN Administration Itching Doxycycline Hyclate 100 mg 02/07/25 09:00 02/09/25 09:13 Doxycycline Hyclate 100 Mg Tablet FEED TUBE 02/10/25 09:01 100 mg Q12HR JAYME Administration Escitalopram Oxalate 10 mg 02/02/25 09:00 02/09/25 09:13 Escitalopram Oxalate 10 Mg Tablet FEED TUBE 10 mg DAILY JAYME Administration Gabapentin 100 mg 02/02/25 09:00 02/09/25 17:07 Gabapentin 100 Mg Capsule FEED TUBE 100 mg TID JAYME Administration Glucagon 1 mg 01/30/25 14:22 Glucagon For Inj 1 Mg Vial IM PRN PRN Hypoglycemia Protocol Glucose 15 gm 01/30/25 14:22 Glucose Oral Gel 15 Gm Of Glucse In 37.5 Gm Tube PO PRN PRN Hypoglycemia Protocol Heparin Sodium (Beef Lung) 50 units 01/31/25 09:00 02/09/25 09:26 Heparin Flush 50 Units/5 Ml Syringe IV PUSH Not Given QAM JAYME Heparin Sodium (Beef Lung) 50 units 01/30/25 10:15 02/04/25 12:47 Heparin Flush 50 Units/5 Ml Syringe IV PUSH 50 units PRN PRN Administration after intermittent infusion Heparin Sodium (Beef Lung) 50 units 01/30/25 10:15 02/08/25 04:37 Heparin Flush 50 Units/5 Ml Syringe IV PUSH 50 units PRN PRN Administration after blood draws Heparin Sodium (Porcine) 5,000 units 01/30/25 09:00 02/09/25 09:31 Heparin Sodium 5,000 Units/Ml Vial SUB-Q Not Given Q12HR JAYME Heparin Sodium (Porcine) 500 units 01/30/25 10:15 Heparin Sodium Lock Flush 500 Units/5 Ml Syringe IV PUSH PRN PRN see comments below Hydromorphone HCl 0.5 mg 02/09/25 12:20 Hydromorphone Hcl Inj (*Crx) 1 Mg/Ml Syr IV PUSH Q8H PRN Pain Rated 7-10 Albumin Human 50 mls @ 999 mls/hr 01/30/25 05:27 Albutein IVPB 03/01/25 05:26 Q10M PRN HYPOTENSION Dextrose 1,000 mls @ 100 mls/hr 01/30/25 14:22 Dextrose 5% 1,000 Ml IVPB PRN PRN Hypoglycemia Protocol Insulin Aspart 2 - 5 units 02/02/25 08:00 02/09/25 12:11 Insulin Aspart (*Bkc) 100 Units/Ml SUB-Q 4 units TIDWM JAYME Administration Protocol Insulin Aspart 4 units 02/09/25 18:00 Insulin Aspart (*Bkc) 100 Units/Ml SUB-Q TID@0000,0600,1800 JAYME Insulin Aspart 4 units 02/09/25 12:20 Insulin Aspart (*Bkc) 100 Units/Ml SUB-Q DAILY@1200 PRN ONLY IF PT EATS LUNCH Insulin Glargine 20 units 02/10/25 09:00 Insulin Glargine (*Bkc) 100 Units/Ml SUB-Q DAILY JAYME Isosorbide Dinitrate 20 mg 02/04/25 17:00 02/09/25 17:07 Isosorbide Dinitrate 20 Mg Tablet FEED TUBE 20 mg TID JAYME Administration Losartan Potassium 50 mg 02/08/25 09:00 02/09/25 09:13 Losartan Potassium 50 Mg Tablet FEED TUBE 50 mg DAILY JAYME Administration Miscellaneous Information 1 each 02/02/25 08:57 Pharmacist Communication Order XX 03/04/25 08:56 ONCE JAYME Miscellaneous Information 1 each 02/07/25 00:01 02/09/25 12:19 Please Renew Diazepam. Per [employer] Procedure, It Will Discontinue If Not Renewed. XX 03/09/25 00:00 1 each CLARIFY JAYME Administration Multi-Ingred Cream/Lotion/Oil/Oint 1 applic 02/08/25 09:00 02/09/25 09:35 Eucerin Cream 120 Gm Jar TOPICAL 1 applic DAILY JAYME Administration Ondansetron HCl 4 mg 01/30/25 18:35 02/09/25 09:15 Ondansetron Inj 4 Mg/2 Ml Vial IV PUSH 4 mg Q4H PRN Administration Nausea And Vomiting Oxycodone/Acetaminophen 1 tablet 02/08/25 07:01 Oxycodone/Acetaminophen (*Crx) 5-325 Mg Tablet FEED TUBE Q4H PRN Pain Rated 4-6 Pantoprazole Sodium 40 mg 01/30/25 09:00 02/09/25 09:15 Pantoprazole Sodium Iv 40 Mg Vial IV PUSH 40 mg Q12HR JAYME Administration Promethazine HCl 25 mg 02/08/25 18:01 Promethazine Hcl 25 Mg Tablet FEED TUBE Q4H PRN Nausea And Vomiting Sodium Chloride 10 ml 01/30/25 14:00 02/09/25 09:16 Central Line Flush IV PUSH 10 ml Q8HR JAYME Administration Radiology Results: ITS Impressions Chest X-Ray 02/02/25 20:02 IMPRESSION: No acute pulmonary findings. Chest/Abdomen/Pelvis CT 02/05/25 07:39 IMPRESSION: 1. Persistent airspace and groundglass opacities in left lung lower lobe with volume loss, consistent with pneumonia versus atelectasis/scarring. 2. Mild mediastinal, retroperitoneal, and pelvic lymphadenopathy, likely reactive. Labs Labs: Laboratory Tests 02/09/25 07:01 02/09/25 07:01 Calcium 8.8 Phosphorus 3.8 Magnesium 2.2 Albumin 4.0
[2025-02-09] MEDS: cefTRIAXone 1 GM in SODIUM CHLORIDE 0.9% IV 50 ML 100 ML IVPB (17:07)
--- NOTE | 2025-02-09 17:14 | PC.NURSE ---
Patient has refused all feeds in addition to heparin products today.
--- NOTE | 2025-02-09 17:53 | PC.NURSE ---
RN scanned patient's bladder and got above 300 mL of urine. RN explained the orders of straight catheterization and patient refused to allow RN do that.
[2025-02-10] VITALS (21 sets, daily range): BP systolic 123–176; BP diastolic 57–96; PULSE 85–98; RESP 16; TEMP 36.2–37.3; O2SAT 96–100
[2025-02-10] MEDS: CENTRAL LINE FLUSH 10 ML IV PUSH ×3 (05:10→22:02)
[2025-02-10] MEDS: HYDROmorphone HCL INJ (*CRX) 1 MG/ML SYR 0.5 MG IV PUSH ×3 (05:26→21:45)
[2025-02-10 05:59] LABS: Albumin Level 3.8 g/dL (3.5-5.1); Anion Gap 10 mmol/L (4-12); Blood Urea Nitrogen 40 mg/dL (7-17); Calcium 8.6 mg/dL (8.4-10.2); Carbon Dioxide 29 mmol/L (22-30); Chloride 99 mmol/L (98-107); Estimated CRCL calculation 10 ml/min; Estimated Glomerular Filt Rate 7; Glucose 121 mg/dL (65-110); Potassium 3.9 mmol/L (3.4-5.0); Sodium 138 mmol/L (137-145)
[2025-02-10] MEDS: LOSARTAN POTASSIUM 50 MG TABLET FEED TUBE (08:41)
[2025-02-10] MEDS: ESCITALOPRAM OXALATE 10 MG TABLET FEED TUBE (08:41)
[2025-02-10] MEDS: DOXYCYCLINE HYCLATE 100 MG TABLET FEED TUBE (08:41)
[2025-02-10] MEDS: GABAPENTIN 100 MG CAPSULE FEED TUBE ×3 (08:41→17:26)
[2025-02-10] MEDS: ISOSORBIDE DINITRATE 20 MG TABLET FEED TUBE ×3 (08:41→17:26)
[2025-02-10] MEDS: INSULIN GLARGINE (*BKC) 100 UNITS/ML 20 UNITS SUB-Q (08:48)
[2025-02-10] MEDS: PANTOPRAZOLE SODIUM IV 40 MG VIAL IV PUSH ×2 (09:31→21:43)
[2025-02-10] MEDS: oxyCODONE/ACETAMINOPHEN (*CRX) 5-325 MG TABLET 1 TABLET FEED TUBE ×2 (10:23→17:36)
[2025-02-10] MEDS: ACETAMINOPHEN ELIXIR 325 MG/10.15 ML UDC 650 MG FEED TUBE (12:11)
--- NOTE | 2025-02-10 12:15 | P.PNNP_ITS ---
Progress Note: A&P Assessment and Plan (1) End stage renal disease: Code(s): N18.6 - End stage renal disease Status: Chronic Assessment and Plan: * HD will be done later today * continue //Wednesday dialysis schedule while hospitalized * follow electrolytes, volume status, and clearance * outpatient dialysis clinic = [facility] in [place] * primary supervisor bonding = Dr. Odilon Tellez (2) DKA (diabetic ketoacidosis): Qualifiers: Diabetes mellitus complication detail: without coma Diabetes mellitus type: type 1 Qualified Code(s): E10.10 - Type 1 diabetes mellitus with ketoacidosis without coma Code(s): E11.10 - Type 2 diabetes mellitus with ketoacidosis without coma Status: Resolved Assessment and Plan: * resolved * as noted by evaluation in ER * sugars seem to be a little bit better lately. (3) Nausea & vomiting: Qualifiers: Vomiting type: unspecified Qualified Code(s): R11.2 - Nausea with vomiting, unspecified Code(s): R11.2 - Nausea with vomiting, unspecified Status: Acute Assessment and Plan: * chronic and long standing issue (per patient and review of records) * cyclic in nature * thought to be secondary to diabetic gastroparesis * s/p recent G-J-tube placement to ensure adequate/supplemental nutrition given this issue * continue oral intake and supplement tube feeds as needed (4) Hyperkalemia: Code(s): E87.5 - Hyperkalemia Status: Acute Assessment and Plan: * fluctuates - note more so on the two day stretch (from Wednesday -> Wednesday) with regard to dialysis treatments * Potassium is okay today (5) Diabetic gastroparesis: Code(s): E11.43 - Type 2 diabetes mellitus with diabetic autonomic (poly)neuropathy; K 31.84 - Gastroparesis Status: Acute Assessment and Plan: * known and long standing issue * likely precipiting factor for admission symptoms (6) Anemia: Code(s): D64.9 - Anemia, unspecified Status: Chronic Assessment and Plan: * due to ESRD * Epogen with HD * hemoglobin is target as of yesterday's labs. (7) Hypertension: Code(s): I10 - Essential (primary) hypertension Status: Chronic Assessment and Plan: * quite elevated on admission * Still fairly high with systolic between 150 and 207 * on home medications * on losartan 50, carvedilol 25 b.i.d., adjusted just today, and isosorbide dinitrate. * follow trend of hemodynamics (8) Type 1 diabetes: Qualifiers: Diabetes mellitus complication status: with hyperglycemia Qualified Code(s): E10.65 - Type 1 diabetes mellitus with hyperglycemia Code(s): E10.9 - Type 1 diabetes mellitus without complications Status: Chronic Assessment and Plan: * see #1 * follow accu-cheks * on SQ insulin (SSI and Lantus) * glycemic control per hospitalist Subjective Date/time seen: 02/10/25 12:15 Interval history: patient is lying in bed. She is having intermittent emesis. This was going on all day yesterday and today. She is receiving medications for it. Exam Narrative: General: WD/WN female in NAD Heart: normal S1 and S2; no rub or gallop Lungs: decreased at bases Abdomen: soft, nontender, nondistended, positive bowel sounds Extremities: no cyanosis or clubbing; no edema Skin: no nodules or rash Objective Data Vital Signs Vital Signs: Vital Signs - 24 hr 02/09/25 16:48 02/09/25 21:17 02/09/25 21:17 Temperature 98.2 F Pulse Rate 98 96 Respiratory Rate 18 Blood Pressure 166/90 H Pulse Oximetry 98 Oxygen Delivery Room Air 02/09/25 21:48 02/10/25 05:57 02/10/25 08:41 Temperature 97 F L 97.1 F L Pulse Rate 96 85 88 Respiratory Rate 18 16 Blood Pressure 153/85 H 168/83 H Pulse Oximetry 100 99 Oxygen Delivery 02/10/25 08:55 Temperature Pulse Rate Respiratory Rate Blood Pressure Pulse Oximetry Oxygen Delivery Room Air Intake/Output Intake/Output: Intake & Output 02/07/25 02/08/25 02/09/25 02/10/25 23:59 23:59 23:59 23:59 Intake Total 600 490 255 0 Output Total 100 1942 0 Balance 500 -1452 255 0 Meds/Results Medications: Active Medications Generic Name Dose Route Start Last Admin Trade Name Grayson PRN Reason Stop Dose Admin Acetaminophen 650 mg 02/02/25 09:12 02/10/25 12:11 Acetaminophen Elixir 325 Mg/10.15 Ml Udc FEED TUBE 650 mg Q4H PRN Administration Mild Pain (1-3) or Fever Amlodipine Besylate 10 mg 02/02/25 09:00 02/10/25 08:41 Amlodipine Besylate 10 Mg Tablet FEED TUBE 10 mg DAILY JAYEM Administration Carvedilol 25 mg 02/10/25 09:00 02/10/25 08:41 Carvedilol 25 Mg Tablet FEED TUBE 25 mg Q12H JAYME Administration Dextrose 12.5 gm 01/30/25 14:22 02/06/25 17:11 Dextrose 50% 25 Gm/50 Ml Syringe IV PUSH 12.5 gm PRN PRN Administration Hypoglycemia Protocol Diazepam 5 mg 01/29/25 22:29 02/09/25 03:51 Diazepam Inj (*Crx) 10 Mg/2 Ml Syringe IV PUSH 5 mg Q6H PRN Administration Intractable nausea vomiting Diphenhydramine HCl 25 mg 02/08/25 07:02 02/10/25 09:27 Diphenhydramine Hcl Inj 50 Mg/Ml Vial IV PUSH 25 mg Q4H PRN Administration Itching Epoetin Live-epbx 10,000 units 02/10/25 18:08 Epoetin Live-Epbx 10,000 Units/Ml Vial IV PUSH 02/10/25 18:09 ONCE ONE Escitalopram Oxalate 10 mg 02/02/25 09:00 02/10/25 08:41 Escitalopram Oxalate 10 Mg Tablet FEED TUBE 10 mg DAILY JAYME Administration Gabapentin 100 mg 02/02/25 09:00 02/10/25 12:11 Gabapentin 100 Mg Capsule FEED TUBE 100 mg TID JAYME Administration Glucagon 1 mg 01/30/25 14:22 Glucagon For Inj 1 Mg Vial IM PRN PRN Hypoglycemia Protocol Glucose 15 gm 01/30/25 14:22 Glucose Oral Gel 15 Gm Of Glucse In 37.5 Gm Tube PO PRN PRN Hypoglycemia Protocol Heparin Sodium (Beef Lung) 50 units 01/31/25 09:00 02/10/25 07:34 Heparin Flush 50 Units/5 Ml Syringe IV PUSH Not Given QAM JAYME Heparin Sodium (Beef Lung) 50 units 01/30/25 10:15 02/04/25 12:47 Heparin Flush 50 Units/5 Ml Syringe IV PUSH 50 units PRN PRN Administration after intermittent infusion Heparin Sodium (Beef Lung) 50 units 01/30/25 10:15 02/08/25 04:37 Heparin Flush 50 Units/5 Ml Syringe IV PUSH 50 units PRN PRN Administration after blood draws Heparin Sodium (Porcine) 5,000 units 01/30/25 09:00 02/10/25 07:34 Heparin Sodium 5,000 Units/Ml Vial SUB-Q Not Given Q12HR [facility] Heparin Sodium (Porcine) 500 units 01/30/25 10:15 Heparin Sodium Lock Flush 500 Units/5 Ml Syringe IV PUSH PRN PRN see comments below Hydromorphone HCl 0.5 mg 02/09/25 12:20 02/10/25 05:26 Hydromorphone Hcl Inj (*Crx) 1 Mg/Ml Syr IV PUSH 0.5 mg Q8H PRN Administration Pain Rated 7-10 Albumin Human 50 mls @ 999 mls/hr 01/30/25 05:27 Albutein IVPB 03/01/25 05:26 Q10M PRN HYPOTENSION Dextrose 1,000 mls @ 100 mls/hr 01/30/25 14:22 Dextrose 5% 1,000 Ml IVPB PRN PRN Hypoglycemia Protocol Insulin Aspart 2 - 5 units 02/02/25 08:00 02/10/25 08:49 Insulin Aspart (*Bkc) 100 Units/Ml SUB-Q Not Given TIDWM [facility] Protocol Insulin Aspart 4 units 02/09/25 18:00 02/10/25 05:07 Insulin Aspart (*Bkc) 100 Units/Ml SUB-Q Not Given TID@0000,0600,1800 JAYME Insulin Aspart 4 units 02/09/25 12:20 Insulin Aspart (*Bkc) 100 Units/Ml SUB-Q DAILY@1200 PRN ONLY IF PT EATS LUNCH Insulin Glargine 20 units 02/10/25 09:00 02/10/25 08:48 Insulin Glargine (*Bkc) 100 Units/Ml SUB-Q 20 units DAILY JAYME Administration Isosorbide Dinitrate 20 mg 02/04/25 17:00 02/10/25 12:11 Isosorbide Dinitrate 20 Mg Tablet FEED TUBE 20 mg TID JAYME Administration Losartan Potassium 50 mg 02/08/25 09:00 02/10/25 08:41 Losartan Potassium 50 Mg Tablet FEED TUBE 50 mg DAILY JAYME Administration Miscellaneous Information 1 each 02/02/25 08:57 Pharmacist Communication Order XX 03/04/25 08:56 ONCE JAYME Miscellaneous Information 1 each 02/07/25 00:01 02/10/25 08:51 Please Renew Diazepam. Per [employer] Procedure, It Will Discontinue If Not Renewed. XX 03/09/25 00:00 1 each CLARIFY JAYME Administration Multi-Ingred Cream/Lotion/Oil/Oint 1 applic 02/08/25 09:00 02/09/25 09:35 Eucerin Cream 120 Gm Jar TOPICAL 1 applic DAILY JAYME Administration Ondansetron HCl 4 mg 01/30/25 18:35 02/09/25 09:15 Ondansetron Inj 4 Mg/2 Ml Vial IV PUSH 4 mg Q4H PRN Administration Nausea And Vomiting Oxycodone/Acetaminophen 1 tablet 02/08/25 07:01 02/10/25 10:23 Oxycodone/Acetaminophen (*Crx) 5-325 Mg Tablet FEED TUBE 1 tablet Q4H PRN Administration Pain Rated 4-6 Pantoprazole Sodium 40 mg 01/30/25 09:00 02/10/25 09:31 Pantoprazole Sodium Iv 40 Mg Vial IV PUSH 40 mg Q12HR JAYME Administration Promethazine HCl 25 mg 02/08/25 18:01 Promethazine Hcl 25 Mg Tablet FEED TUBE Q4H PRN Nausea And Vomiting Sodium Chloride 10 ml 01/30/25 14:00 02/10/25 05:10 Central Line Flush IV PUSH 10 ml Q8HR JAYME Administration Radiology Results: ITS Impressions Chest X-Ray 02/02/25 20:02 IMPRESSION: No acute pulmonary findings. Chest/Abdomen/Pelvis CT 02/05/25 07:39 IMPRESSION: 1. Persistent airspace and groundglass opacities in left lung lower lobe with volume loss, consistent with pneumonia versus atelectasis/scarring. 2. Mild mediastinal, retroperitoneal, and pelvic lymphadenopathy, likely reactive. Labs Labs: Laboratory Results - last 24 hr 02/09/25 02/09/25 02/10/25 16:44 21:16 05:10 Sodium 138 Potassium 3.9 Chloride 99 Carbon Dioxide 29 Anion Gap 10 BUN 40 H D Creatinine 6.61 H Estim Creat Clear Calc 10 Estimated GFR 7 L Glucose 121 H POC Capillary Glucose 216 H 154 H Calcium 8.6 Phosphorus 5.2 H Albumin 3.8 02/10/25 02/10/25 02/10/25 05:14 08:04 11:59 Sodium Potassium Chloride Carbon Dioxide Anion Gap BUN Creatinine Estim Creat Clear Calc Estimated GFR Glucose POC Capillary Glucose 108 H 126 H 151 H Calcium Phosphorus Albumin
[2025-02-10] MEDS: EUCERIN CREAM 120 GM JAR 1 APPLIC TOPICAL (12:17)
--- NOTE | 2025-02-10 12:18 | P.PNIM_ITS ---
Progress Note: A&P Assessment and Plan (1) Nausea & vomiting: Qualifiers: Vomiting type: unspecified Qualified Code(s): R11.2 - Nausea with vomiting, unspecified Code(s): R11.2 - Nausea with vomiting, unspecified Status: Acute Assessment and Plan: History of chronic nausea and vomiting with known gastroparesis s/p GJ tube placement and gastric pacemaker Persistent abdominal pain requiring frequent dilaudid use. CT C/A/P showing persistent LLL airspace disease and mild adenopathy. The LLL PNA initially noted by CT on 12/23/24 but no prior imaging to review. On tube feeds at night which she allows at times Narcotics may be contributing to her nausea as a side effect and slowing her gastric motility. Consider recurrent DKA but felt less likely with normal bicarb today. Discussed with her at length about plan to continue to wean narcotics off. Continue Zofran and phenergan prn. (2) DKA, type 1: Qualifiers: Diabetes mellitus complication detail: without coma Qualified Code(s): E10.10 - Type 1 diabetes mellitus with ketoacidosis without coma Code(s): E10.10 - Type 1 diabetes mellitus with ketoacidosis without coma Status: Acute Assessment and Plan: DKA on presentation. Her anion gap metabolic acidosis was complicated by history of end-stage renal disease. Pt was not given given IVF due to ESRD DKA protocol with insulin infusion and Q1H glucose monitoring Anion gap closed and patient was transition to subcutaneous insulin She remains stable on SQ insulin; gap better at 10. Follow (3) Type 1 diabetes: Qualifiers: Diabetes mellitus complication status: with hyperglycemia Qualified Code(s): E10.65 - Type 1 diabetes mellitus with hyperglycemia Code(s): E10.9 - Type 1 diabetes mellitus without complications Status: Chronic Assessment and Plan: A1c 8.4 last month. She takes 15 units Lantus at home She gets tube feeds overnight and is on Novolog Q6hr (except at noon which is PRN if she eats). The patient's blood glucose was reviewed on 02/10 Glucose higher probably related to improved oral intake and/or stress response Continue AccuCheks covering with sliding scale. Hypoglycemia protocol available as needed. Novolog and Lantus advanced and glucose better controlled. Follow. (4) End stage renal disease on dialysis: Code(s): N18.6 - End stage renal disease; Z99.2 - Dependence on renal dialysis Status: Acute Assessment and Plan: Inpatient dialysis per Nephrology Normally on schedule HD planned for today (5) SIRS (systemic inflammatory response syndrome): Code(s): R65.10 - Systemic inflammatory response syndrome (SIRS) of non-infectious origin without acute organ dysfunction Status: Acute Assessment and Plan: Findings suggestive of sirs likely from DKA. Procalcitonin level is 2.5 but patient was afebrile with normal WBC count. Abx were held. BCx negative. Urine culture mixed urogenital lupe 25-50 K. MRSA nasal swab negative. CT with findings of left lower lobe pneumonia but this seems more of a chronic finding and not much change since Dec. Probably more likely scarring. Started ceftriaxone and doxycycline 02/05/25 and completed a 5 days course. continue current antibiotics. (6) Hypertension: Code(s): I10 - Essential (primary) hypertension Status: Chronic Assessment and Plan: Patient's blood pressure was reviewed on 02/10 Blood pressure better today On Coreg, amlodipine, isosorbide and Cozaar Continue to advance medications as needed. Plan DVT prophylaxis -heparin subQ (patient refusing most of the time); add SCD Nutrition -continue Tube Feeds at night Code Status - Full Code Subjective Date/time seen: 02/10/25 12:18 Interval history: 29yo female with a past medical history of ESRD due to type 1 DM with complications including diabetic peripheral neuropathy and gastroparesis status post recent G-tube placement for decompression in J-tube placement for enteral feeds who presented to the ER with 3 days of nausea vomiting and couple of hours of left-sided chest pain. Had recurrent nausea and vomiting with dry heaves throughout the day yesterday. This is better today. She does have increased abdominal pain this morning. Hemodialysis scheduled for later today. She overall feels better. Exam Narrative: AF 97.1 168/83 88 16 99% ra Gen - NARD Chest - left upper chest port in place that is accessed. Right upper chest HD catheter in place. CTA bilaterally. CV - RRR S1/S2 Abd - soft, +BS. G/J tube in place. Nontender. Ext - no pedal edema. Psych -mood is improved. Skin -warm and dry Objective Data Vital Signs Vital Signs: Vital Signs - 24 hr 02/09/25 16:48 02/09/25 21:17 02/09/25 21:17 Temperature 98.2 F Pulse Rate 98 96 Respiratory Rate 18 Blood Pressure 166/90 H Pulse Oximetry 98 Oxygen Delivery Room Air 02/09/25 21:48 02/10/25 05:57 02/10/25 08:41 Temperature 97 F L 97.1 F L Pulse Rate 96 85 88 Respiratory Rate 18 16 Blood Pressure 153/85 H 168/83 H Pulse Oximetry 100 99 Oxygen Delivery 02/10/25 08:55 Temperature Pulse Rate Respiratory Rate Blood Pressure Pulse Oximetry Oxygen Delivery Room Air Intake/Output Intake/Output: Intake & Output 02/07/25 02/08/25 02/09/25 02/10/25 23:59 23:59 23:59 23:59 Intake Total 600 490 255 0 Output Total 100 1942 0 Balance 500 -1452 255 0 Meds/Results Medications: Active Medications Generic Name Dose Route Start Last Admin Trade Name Freq PRN Reason Stop Dose Admin Acetaminophen 650 mg 02/02/25 09:12 02/10/25 12:11 Acetaminophen Elixir 325 Mg/10.15 Ml Udc FEED TUBE 650 mg Q4H PRN Administration Mild Pain (1-3) or Fever Amlodipine Besylate 10 mg 02/02/25 09:00 02/10/25 08:41 Amlodipine Besylate 10 Mg Tablet FEED TUBE 10 mg DAILY JAYME Administration Carvedilol 25 mg 02/10/25 09:00 02/10/25 08:41 Carvedilol 25 Mg Tablet FEED TUBE 25 mg Q12H JAYME Administration Dextrose 12.5 gm 01/30/25 14:22 02/06/25 17:11 Dextrose 50% 25 Gm/50 Ml Syringe IV PUSH 12.5 gm PRN PRN Administration Hypoglycemia Protocol Diazepam 5 mg 01/29/25 22:29 02/09/25 03:51 Diazepam Inj (*Crx) 10 Mg/2 Ml Syringe IV PUSH 5 mg Q6H PRN Administration Intractable nausea vomiting Diphenhydramine HCl 25 mg 02/08/25 07:02 02/10/25 09:27 Diphenhydramine Hcl Inj 50 Mg/Ml Vial IV PUSH 25 mg Q4H PRN Administration Itching Epoetin Live-epbx 10,000 units 02/10/25 18:08 Epoetin Live-Epbx 10,000 Units/Ml Vial IV PUSH 02/10/25 18:09 ONCE ONE Escitalopram Oxalate 10 mg 02/02/25 09:00 02/10/25 08:41 Escitalopram Oxalate 10 Mg Tablet FEED TUBE 10 mg DAILY JAYME Administration Gabapentin 100 mg 02/02/25 09:00 02/10/25 12:11 Gabapentin 100 Mg Capsule FEED TUBE 100 mg TID JAYME Administration Glucagon 1 mg 01/30/25 14:22 Glucagon For Inj 1 Mg Vial IM PRN PRN Hypoglycemia Protocol Glucose 15 gm 01/30/25 14:22 Glucose Oral Gel 15 Gm Of Glucse In 37.5 Gm Tube PO PRN PRN Hypoglycemia Protocol Heparin Sodium (Beef Lung) 50 units 01/31/25 09:00 02/10/25 07:34 Heparin Flush 50 Units/5 Ml Syringe IV PUSH Not Given QAM JAYME Heparin Sodium (Beef Lung) 50 units 01/30/25 10:15 02/04/25 12:47 Heparin Flush 50 Units/5 Ml Syringe IV PUSH 50 units PRN PRN Administration after intermittent infusion Heparin Sodium (Beef Lung) 50 units 01/30/25 10:15 02/08/25 04:37 Heparin Flush 50 Units/5 Ml Syringe IV PUSH 50 units PRN PRN Administration after blood draws Heparin Sodium (Porcine) 5,000 units 01/30/25 09:00 02/10/25 07:34 Heparin Sodium 5,000 Units/Ml Vial SUB-Q Not Given Q12HR JAYME Heparin Sodium (Porcine) 500 units 01/30/25 10:15 Heparin Sodium Lock Flush 500 Units/5 Ml Syringe IV PUSH PRN PRN see comments below Hydromorphone HCl 0.5 mg 02/09/25 12:20 02/10/25 05:26 Hydromorphone Hcl Inj (*Crx) 1 Mg/Ml Syr IV PUSH 0.5 mg Q8H PRN Administration Pain Rated 7-10 Albumin Human 50 mls @ 999 mls/hr 01/30/25 05:27 Albutein IVPB 03/01/25 05:26 Q10M PRN HYPOTENSION Dextrose 1,000 mls @ 100 mls/hr 01/30/25 14:22 Dextrose 5% 1,000 Ml IVPB PRN PRN Hypoglycemia Protocol Insulin Aspart 2 - 5 units 02/02/25 08:00 02/10/25 12:17 Insulin Aspart (*Bkc) 100 Units/Ml SUB-Q Not Given TIDWM [facility] Protocol Insulin Aspart 4 units 02/09/25 18:00 02/10/25 05:07 Insulin Aspart (*Bkc) 100 Units/Ml SUB-Q Not Given TID@0000,0600,1800 [facility] Insulin Aspart 4 units 02/09/25 12:20 Insulin Aspart (*Bkc) 100 Units/Ml SUB-Q DAILY@1200 PRN ONLY IF PT EATS LUNCH Insulin Glargine 20 units 02/10/25 09:00 02/10/25 08:48 Insulin Glargine (*Bkc) 100 Units/Ml SUB-Q 20 units DAILY JAYME Administration Isosorbide Dinitrate 20 mg 02/04/25 17:00 02/10/25 12:11 Isosorbide Dinitrate 20 Mg Tablet FEED TUBE 20 mg TID JAYME Administration Losartan Potassium 50 mg 02/08/25 09:00 02/10/25 08:41 Losartan Potassium 50 Mg Tablet FEED TUBE 50 mg DAILY JAYME Administration Miscellaneous Information 1 each 02/02/25 08:57 Pharmacist Communication Order XX 03/04/25 08:56 ONCE JAYME Miscellaneous Information 1 each 02/07/25 00:01 02/10/25 08:51 Please Renew Diazepam. Per [employer] Procedure, It Will Discontinue If Not Renewed. XX 03/09/25 00:00 1 each CLARIFY JAYME Administration Multi-Ingred Cream/Lotion/Oil/Oint 1 applic 02/08/25 09:00 02/10/25 12:17 Eucerin Cream 120 Gm Jar TOPICAL 1 applic DAILY JAYME Administration Ondansetron HCl 4 mg 01/30/25 18:35 02/09/25 09:15 Ondansetron Inj 4 Mg/2 Ml Vial IV PUSH 4 mg Q4H PRN Administration Nausea And Vomiting Oxycodone/Acetaminophen 1 tablet 02/08/25 07:01 02/10/25 10:23 Oxycodone/Acetaminophen (*Crx) 5-325 Mg Tablet FEED TUBE 1 tablet Q4H PRN Administration Pain Rated 4-6 Pantoprazole Sodium 40 mg 01/30/25 09:00 02/10/25 09:31 Pantoprazole Sodium Iv 40 Mg Vial IV PUSH 40 mg Q12HR JAYME Administration Promethazine HCl 25 mg 02/08/25 18:01 Promethazine Hcl 25 Mg Tablet FEED TUBE Q4H PRN Nausea And Vomiting Sodium Chloride 10 ml 01/30/25 14:00 02/10/25 12:16 Central Line Flush IV PUSH 10 ml Q8HR JAYME Administration Radiology Results: ITS Impressions Chest X-Ray 02/02/25 20:02 IMPRESSION: No acute pulmonary findings. Chest/Abdomen/Pelvis CT 02/05/25 07:39 IMPRESSION: 1. Persistent airspace and groundglass opacities in left lung lower lobe with volume loss, consistent with pneumonia versus atelectasis/scarring. 2. Mild mediastinal, retroperitoneal, and pelvic lymphadenopathy, likely reactive. Labs Labs: Laboratory Results - last 24 hr 02/09/25 02/09/25 02/10/25 16:44 21:16 05:10 Sodium 138 Potassium 3.9 Chloride 99 Carbon Dioxide 29 Anion Gap 10 BUN 40 H D Creatinine 6.61 H Estim Creat Clear Calc 10 Estimated GFR 7 L Glucose 121 H POC Capillary Glucose 216 H 154 H Calcium 8.6 Phosphorus 5.2 H Albumin 3.8 02/10/25 02/10/25 02/10/25 05:14 08:04 11:59 Sodium Potassium Chloride Carbon Dioxide Anion Gap BUN Creatinine Estim Creat Clear Calc Estimated GFR Glucose POC Capillary Glucose 108 H 126 H 151 H Calcium Phosphorus Albumin
[2025-02-10] MEDS: EPOETIN ALFA-EPBX 10,000 UNITS/ML VIAL 10000 UNITS IV PUSH (15:50)
[2025-02-10] MEDS: SODIUM CHLORIDE 0.9% IV 1,000 ML 999 ML IV CONT ×2 (18:10→18:11)
[2025-02-11] MEDS: diazePAM INJ (*CRX) 10 MG/2 ML SYRINGE 5 MG IV PUSH (03:19)
[2025-02-11 05:46] VITALS: BP 186/99; PULSE 106; RESP 14; TEMP 36.7; O2SAT 97
[2025-02-11] MEDS: HYDROmorphone HCL INJ (*CRX) 1 MG/ML SYR 0.5 MG IV PUSH ×2 (05:50→13:00)
[2025-02-11 05:57] LABS: Hematocrit 38.6 % (37.0-47.0); Hemoglobin 11.8 g/dL (12.0-15.0); Mean Corpuscular HGB Conc 30.6 g/dl (32-36); Mean Corpuscular Hemoglobin 28.4 pg (26-34); Mean Corpuscular Volume 93.0 fl (80-100); Platelet Count Result 418 k/mm3 (150-375); Red Blood Count 4.15 M/mm3 (4.2-5.4); White Blood Count 5.4 K/mm3 (4.5-10.0)
[2025-02-11 06:22] LABS: Albumin Level 4.3 g/dL (3.5-5.1); Anion Gap 16 mmol/L (4-12); Blood Urea Nitrogen 19 mg/dL (7-17); Calcium 8.8 mg/dL (8.4-10.2); Carbon Dioxide 31 mmol/L (22-30); Chloride 95 mmol/L (98-107); Estimated CRCL calculation 16 ml/min; Estimated Glomerular Filt Rate 13; Glucose 250 mg/dL (65-110); Potassium 4.1 mmol/L (3.4-5.0); Sodium 142 mmol/L (137-145)
[2025-02-11] MEDS: CENTRAL LINE FLUSH 10 ML IV PUSH ×3 (06:57→21:08)
[2025-02-11] MEDS: PANTOPRAZOLE SODIUM IV 40 MG VIAL IV PUSH ×2 (09:24→20:19)
[2025-02-11] MEDS: LOSARTAN POTASSIUM 100 MG TABLET FEED TUBE (09:24)
[2025-02-11 09:25] VITALS: PULSE 111
[2025-02-11] MEDS: GABAPENTIN 100 MG CAPSULE FEED TUBE ×3 (09:25→17:55)
[2025-02-11] MEDS: ESCITALOPRAM OXALATE 10 MG TABLET FEED TUBE (09:25)
[2025-02-11] MEDS: ISOSORBIDE DINITRATE 20 MG TABLET FEED TUBE ×3 (09:25→17:55)
[2025-02-11] MEDS: INSULIN GLARGINE (*BKC) 100 UNITS/ML 20 UNITS SUB-Q (09:30)
--- NOTE | 2025-02-11 11:35 | P.PNNP_ITS ---
Progress Note: A&P Assessment and Plan (1) End stage renal disease: Code(s): N18.6 - End stage renal disease Status: Chronic Assessment and Plan: * HD will be done Wednesday * yesterday's went well * continue //Wednesday dialysis schedule while hospitalized * volume status looks okay * electrolytes okay today * outpatient dialysis clinic = [facility] in [place] * primary launch engineer = Dr. Odilon Tellez (2) DKA (diabetic ketoacidosis): Qualifiers: Diabetes mellitus complication detail: without coma Diabetes mellitus type: type 1 Qualified Code(s): E10.10 - Type 1 diabetes mellitus with ketoacidosis without coma Code(s): E11.10 - Type 2 diabetes mellitus with ketoacidosis without coma Status: Resolved Assessment and Plan: * DKA resolved * as noted by evaluation in ER * sugars seem to be a little bit better lately. (3) Nausea & vomiting: Qualifiers: Vomiting type: unspecified Qualified Code(s): R11.2 - Nausea with vomiting, unspecified Code(s): R11.2 - Nausea with vomiting, unspecified Status: Acute Assessment and Plan: * chronic and long standing issue (per patient and review of records) * cyclic in nature * thought to be secondary to diabetic gastroparesis * s/p recent G-J-tube placement to ensure adequate/supplemental nutrition given this issue * continue oral intake and supplement tube feeds as needed (4) Hyperkalemia: Code(s): E87.5 - Hyperkalemia Status: Acute Assessment and Plan: * fluctuates - note more so on the two day stretch (from Wednesday -> Wednesday) with regard to dialysis treatments * Potassium is okay today. She is eating well. (5) Diabetic gastroparesis: Code(s): E11.43 - Type 2 diabetes mellitus with diabetic autonomic (poly)neuropathy; K31.84 - Gastroparesis Status: Acute Assessment and Plan: * known and long standing issue * likely precipiting factor for admission symptoms (6) Anemia: Code(s): D64.9 - Anemia, unspecified Status: Chronic Assessment and Plan: * due to ESRD * Hemoglobin 11.8. He may not need Epogen on Wednesday. Will check another 1 tomorrow (7) Hypertension: Code(s): I10 - Essential (primary) hypertension Status: Chronic Assessment and Plan: * quite elevated on admission * Still fairly high with systolic between 150 and 207 * on home medications * on losartan 50, carvedilol 25 b.i.d., adjusted just today, and isosorbide dinitrate. * nifedipine cannot be crushed and meds are given per tube. * Will add a clonidine patch (8) Type 1 diabetes: Qualifiers: Diabetes mellitus complication status: with hyperglycemia Qualified Code(s): E10.65 - Type 1 diabetes mellitus with hyperglycemia Code(s): E10.9 - Type 1 diabetes mellitus without complications Status: Chronic Assessment and Plan: * see #1 * follow accu-cheks * on SQ insulin (SSI and Lantus) * glycemic control per hospitalist Subjective Date/time seen: 02/11/25 11:35 Interval history: the patient feels about the same today. Still has intermittent nausea and vomiting. She received ondansetron this morning she said Exam Narrative: General: WD/WN female in NAD Heart: normal S1 and S2; no rub or gallop Lungs: fairly clear today Abdomen: soft, nontender, nondistended, positive bowel sounds Extremities: no edema Skin: no nodules or rash Objective Data Vital Signs Vital Signs: Vital Signs - 24 hr 02/10/25 12:47 02/10/25 12:47 02/10/25 12:54 Temperature 99.1 F Pulse Rate 96 89 Respiratory Rate 16 Blood Pressure 155/83 H 169/94 H Pulse Oximetry 100 Oxygen Delivery Oxygen Flow Rate 0 Fraction of Inspired Oxygen 0 02/10/25 13:00 02/10/25 13:15 02/10/25 13:30 Temperature Pulse Rate 90 90 90 Respiratory Rate Blood Pressure 161/93 H 151/96 H 160/89 H Pulse Oximetry Oxygen Delivery Oxygen Flow Rate Fraction of Inspired Oxygen 02/10/25 13:45 02/10/25 14:00 02/10/25 14:15 Temperature Pulse Rate 92 91 94 Respiratory Rate Blood Pressure 153/88 H 160/91 H 155/89 H Pulse Oximetry Oxygen Delivery Oxygen Flow Rate Fraction of Inspired Oxygen 02/10/25 14:30 02/10/25 14:45 02/10/25 15:00 Temperature Pulse Rate 95 94 96 Respiratory Rate Blood Pressure 157/57 H 156/87 H 157/87 H Pulse Oximetry Oxygen Delivery Oxygen Flow Rate Fraction of Inspired Oxygen 02/10/25 15:15 02/10/25 15:28 02/10/25 15:30 Temperature Pulse Rate 94 98 96 Respiratory Rate Blood Pressure 153/83 H 123/85 131/83 Pulse Oximetry Oxygen Delivery Oxygen Flow Rate Fraction of Inspired Oxygen 02/10/25 15:45 02/10/25 15:56 02/10/25 20:00 Temperature Pulse Rate 94 95 Respiratory Rate Blood Pressure 158/91 H 151/89 H Pulse Oximetry 96 Oxygen Delivery Room Air Oxygen Flow Rate Fraction of Inspired Oxygen 02/10/25 21:43 02/10/25 21:48 02/11/25 05:46 Temperature 97.7 F 98.0 F Pulse Rate 93 90 106 H Respiratory Rate 16 14 Blood Pressure 176/92 H 186/99 H Pulse Oximetry 96 97 Oxygen Delivery Oxygen Flow Rate Fraction of Inspired Oxygen 02/11/25 09:25 02/11/25 09:25 Temperature Pulse Rate 111 H Respiratory Rate Blood Pressure Pulse Oximetry Oxygen Delivery Room Air Oxygen Flow Rate Fraction of Inspired Oxygen Intake/Output Intake/Output: Intake & Output 02/08/25 02/09/25 02/10/25 02/11/25 23:59 23:59 23:59 23:59 Intake Total 490 255 250 100 Output Total 1942 1221 Balance -1452 255 -971 100 Meds/Results Medications: Active Medications Generic Name Dose Route Start Last Admin Trade Name Freq PRN Reason Stop Dose Admin Acetaminophen 650 mg 02/02/25 09:12 02/10/25 12:11 Acetaminophen Elixir 325 Mg/10.15 Ml Udc FEED TUBE 650 mg Q4H PRN Administration Mild Pain (1-3) or Fever Amlodipine Besylate 10 mg 02/02/25 09:00 02/11/25 09:25 Amlodipine Besylate 10 Mg Tablet FEED TUBE 10 mg DAILY JAYME Administration Carvedilol 25 mg 02/10/25 09:00 02/11/25 09:25 Carvedilol 25 Mg Tablet FEED TUBE 25 mg Q12H JAYME Administration Dextrose 12.5 gm 01/30/25 14:22 02/06/25 17:11 Dextrose 50% 25 Gm/50 Ml Syringe IV PUSH 12.5 gm PRN PRN Administration Hypoglycemia Protocol Diazepam 5 mg 01/29/25 22:29 02/11/25 03:19 Diazepam Inj (*Crx) 10 Mg/2 Ml Syringe IV PUSH 5 mg Q6H PRN Administration Intractable nausea vomiting Diphenhydramine HCl 25 mg 02/08/25 07:02 02/11/25 09:35 Diphenhydramine Hcl Inj 50 Mg/Ml Vial IV PUSH 25 mg Q4H PRN Administration Itching Escitalopram Oxalate 10 mg 02/02/25 09:00 02/11/25 09:25 Escitalopram Oxalate 10 Mg Tablet FEED TUBE 10 mg DAILY JAYME Administration Gabapentin 100 mg 02/02/25 09:00 02/11/25 09:25 Gabapentin 100 Mg Capsule FEED TUBE 100 mg TID JAYME Administration Glucagon 1 mg 01/30/25 14:22 Glucagon For Inj 1 Mg Vial IM PRN PRN Hypoglycemia Protocol Glucose 15 gm 01/30/25 14:22 Glucose Oral Gel 15 Gm Of Glucse In 37.5 Gm Tube PO PRN PRN Hypoglycemia Protocol Heparin Sodium (Beef Lung) 50 units 01/31/25 09:00 02/11/25 09:42 Heparin Flush 50 Units/5 Ml Syringe IV PUSH 50 units QAM JAYME Administration Heparin Sodium (Beef Lung) 50 units 01/30/25 10:15 02/10/25 21:49 Heparin Flush 50 Units/5 Ml Syringe IV PUSH 50 units PRN PRN Administration after intermittent infusion Heparin Sodium (Beef Lung) 50 units 01/30/25 10:15 02/08/25 04:37 Heparin Flush 50 Units/5 Ml Syringe IV PUSH 50 units PRN PRN Administration after blood draws Heparin Sodium (Porcine) 5,000 units 01/30/25 09:00 02/11/25 09:24 Heparin Sodium 5,000 Units/Ml Vial SUB-Q Not Given Q12HR JAYME Heparin Sodium (Porcine) 500 units 01/30/25 10:15 Heparin Sodium Lock Flush 500 Units/5 Ml Syringe IV PUSH PRN PRN see comments below Hydromorphone HCl 0.5 mg 02/09/25 12:20 02/11/25 05:50 Hydromorphone Hcl Inj (*Crx) 1 Mg/Ml Syr IV PUSH 0.5 mg Q8H PRN Administration Pain Rated 7-10 Albumin Human 50 mls @ 999 mls/hr 01/30/25 05:27 Albutein IVPB 03/01/25 05:26 Q10M PRN HYPOTENSION Dextrose 1,000 mls @ 100 mls/hr 01/30/25 14:22 Dextrose 5% 1,000 Ml IVPB PRN PRN Hypoglycemia Protocol Insulin Aspart 2 - 5 units 02/02/25 08:00 02/11/25 09:28 Insulin Aspart (*Bkc) 100 Units/Ml SUB-Q Not Given TIDWM JAYME Protocol Insulin Aspart 4 units 02/09/25 18:00 02/11/25 06:56 Insulin Aspart (*Bkc) 100 Units/Ml SUB-Q Not Given TID@0000,0600,1800 JAYEM Insulin Aspart 4 units 02/09/25 12:20 Insulin Aspart (*Bkc) 100 Units/Ml SUB-Q DAILY@1200 PRN ONLY IF PT EATS LUNCH Insulin Glargine 20 units 02/10/25 09:00 02/11/25 09:30 Insulin Glargine (*Bkc) 100 Units/Ml SUB-Q 20 units DAILY JAYME Administration Isosorbide Dinitrate 20 mg 02/04/25 17:00 02/11/25 09:25 Isosorbide Dinitrate 20 Mg Tablet FEED TUBE 20 mg TID JAYME Administration Losartan Potassium 100 mg 02/11/25 09:00 02/11/25 09:24 Losartan Potassium 100 Mg Tablet FEED TUBE 100 mg DAILY JAYME Administration Miscellaneous Information 1 each 02/02/25 08:57 Pharmacist Communication Order XX 03/04/25 08:56 ONCE JAYME Miscellaneous Information 1 each 02/07/25 00:01 02/10/25 08:51 Please Renew Diazepam. Per [employer] Procedure, It Will Discontinue If Not Renewed. XX 03/09/25 00:00 1 each CLARIFY JAYME Administration Multi-Ingred Cream/Lotion/Oil/Oint 1 applic 02/08/25 09:00 02/10/25 12:17 Eucerin Cream 120 Gm Jar TOPICAL 1 applic DAILY JAYME Administration Ondansetron HCl 4 mg 01/30/25 18:35 02/09/25 09:15 Ondansetron Inj 4 Mg/2 Ml Vial IV PUSH 4 mg Q4H PRN Administration Nausea And Vomiting Oxycodone/Acetaminophen 1 tablet 02/08/25 07:01 02/10/25 17:36 Oxycodone/Acetaminophen (*Crx) 5-325 Mg Tablet FEED TUBE 1 tablet Q4H PRN Administration Pain Rated 4-6 Pantoprazole Sodium 40 mg 01/30/25 09:00 02/11/25 09:24 Pantoprazole Sodium Iv 40 Mg Vial IV PUSH 40 mg Q12HR JAYME Administration Promethazine HCl 25 mg 02/08/25 18:01 Promethazine Hcl 25 Mg Tablet FEED TUBE Q4H PRN Nausea And Vomiting Sodium Chloride 10 ml 01/30/25 14:00 02/11/25 06:57 Central Line Flush IV PUSH 10 ml Q8HR JAYME Administration Radiology Results: ITS Impressions Chest X-Ray 02/02/25 20:02 IMPRESSION: No acute pulmonary findings. Chest/Abdomen/Pelvis CT 02/05/25 07:39 IMPRESSION: 1. Persistent airspace and groundglass opacities in left lung lower lobe with volume loss, consistent with pneumonia versus atelectasis/scarring. 2. Mild mediastinal, retroperitoneal, and pelvic lymphadenopathy, likely reactive. Labs Labs: Laboratory Results - last 24 hr 02/10/25 02/10/25 02/10/25 11:59 16:33 21:46 WBC RBC Hgb Hct MCV MCH MCHC RDW Plt Count MPV Sodium Potassium Chloride Carbon Dioxide Anion Gap BUN Creatinine Estim Creat Clear Calc Estimated GFR Glucose POC Capillary Glucose 151 H 129 H 318 H Calcium Phosphorus Albumin 02/11/25 02/11/25 02/11/25 00:32 05:39 05:46 WBC 5.4 RBC 4.15 L Hgb 11.8 L Hct 38.6 MCV 93.0 MCH 28.4 MCHC 30.6 L RDW 17.6 H Plt Count 418 H MPV 10.0 Sodium 142 Potassium 4.1 Chloride 95 L Carbon Dioxide 31 H Anion Gap 16 H BUN 19 H D Creatinine 4.10 H Estim Creat Clear Calc 16 Estimated GFR 13 L Glucose 250 H POC Capillary Glucose 256 H 233 H Calcium 8.8 Phosphorus 3.9 Albumin 4.3 02/11/25 07:53 WBC RBC Hgb Hct MCV MCH MCHC RDW Plt Count MPV Sodium Potassium Chloride Carbon Dioxide Anion Gap BUN Creatinine Estim Creat Clear Calc Estimated GFR Glucose POC Capillary Glucose 247 H Calcium Phosphorus Albumin
--- NOTE | 2025-02-11 12:23 | P.PNIM_ITS ---
Progress Note: A&P Assessment and Plan (1) Nausea & vomiting: Qualifiers: Vomiting type: unspecified Qualified Code(s): R11.2 - Nausea with vomiting, unspecified Code(s): R11.2 - Nausea with vomiting, unspecified Status: Acute Assessment and Plan: History of chronic nausea and vomiting with known gastroparesis s/p GJ tube placement and gastric pacemaker Persistent abdominal pain requiring frequent dilaudid use. CT C/A/P showing persistent LLL airspace disease and mild adenopathy. The LLL PNA initially noted by CT on 12/23/24 but no prior imaging to review. On tube feeds at night which she allows at times Narcotics may be contributing to her nausea as a side effect and slowing her gastric motility. Consider recurrent DKA but felt less likely Continue to back off on narcotics. Spoke with her about transferring her back to [place] Continue Zofran and phenergan prn. (2) DKA, type 1: Qualifiers: Diabetes mellitus complication detail: without coma Qualified Code(s): E10.10 - Type 1 diabetes mellitus with ketoacidosis without coma Code(s): E10.10 - Type 1 diabetes mellitus with ketoacidosis without coma Status: Acute Assessment and Plan: DKA on presentation. Her anion gap metabolic acidosis was complicated by history of end-stage renal disease. Pt was not given given IVF due to ESRD DKA protocol with insulin infusion and Q1H glucose monitoring Anion gap closed and patient was transition to subcutaneous insulin She remains stable on SQ insulin. Follow (3) Type 1 diabetes: Qualifiers: Diabetes mellitus complication status: with hyperglycemia Qualified Code(s): E10.65 - Type 1 diabetes mellitus with hyperglycemia Code(s): E10.9 - Type 1 diabetes mellitus without complications Status: Chronic Assessment and Plan: A1c 8.4 last month. She takes 15 units Lantus at home She gets tube feeds overnight and is on Novolog Q6hr (except at noon which is PRN if she eats). The patient's blood glucose was reviewed on 02/11 Glucose higher probably related to stress response Continue AccuCheks covering with sliding scale. Hypoglycemia protocol available as needed. Advance Novolog. Follow. (4) End stage renal disease on dialysis: Code(s): N18.6 - End stage renal disease; Z99.2 - Dependence on renal dialysis Status: Acute Assessment and Plan: Inpatient dialysis per Nephrology Normally on schedule HD yesterday with 1200mL removed (5) SIRS (systemic inflammatory response syndrome): Code(s): R65.10 - Systemic inflammatory response syndrome (SIRS) of non-infectious origin without acute organ dysfunction Status: Acute Assessment and Plan: Findings suggestive of sirs likely from DKA. Procalcitonin level is 2.5 but patient was afebrile with normal WBC count. Abx were held. BCx negative. Urine culture mixed urogenital lupe 25-50 K. MRSA nasal swab negative. CT with findings of left lower lobe pneumonia but this seems more of a chronic finding and not much change since Dec. Probably more likely scarring. Started ceftriaxone and doxycycline 02/05/25 and completed a 5 day course. Continue to monitor off abx. (6) Hypertension: Code(s): I10 - Essential (primary) hypertension Status: Chronic Assessment and Plan: Patient's blood pressure was reviewed on 02/11 Blood pressure still elevated On Coreg, amlodipine, isosorbide and Cozaar. Cozaar advanced today. Continue to advance medications as needed. Plan DVT prophylaxis -heparin subQ (patient refusing most of the time); SCD added Nutrition -continue Tube Feeds at night Code Status - Full Code Subjective Date/time seen: 02/11/25 12:23 Interval history: 29yo female with a past medical history of ESRD due to type 1 DM with complications including diabetic peripheral neuropathy and gastroparesis status post recent G-tube placement for decompression in J-tube placement for enteral feeds who presented to the ER with 3 days of nausea vomiting and couple of hours of left-sided chest pain. Up again last night with nausea and vomiting with abd pain. Symptoms better this morning. TF were stopped. Exam Narrative: AF 98.0 186/99 111 14 97% ra Gen - NARD Chest - left upper chest port in place that is accessed. Right upper chest HD catheter in place. CTA bilaterally. CV - RRR S1/S2 Abd - soft, +BS. G/J tube in place. Nontender. Stimulator device left upper abdomen. Ext - no pedal edema. Psych -mood stable Skin -warm and dry Objective Data Vital Signs Vital Signs: Vital Signs - 24 hr 02/10/25 12:47 02/10/25 12:47 02/10/25 12:54 Temperature 99.1 F Pulse Rate 96 89 Respiratory Rate 16 Blood Pressure 155/83 H 169/94 H Pulse Oximetry 100 Oxygen Delivery Oxygen Flow Rate 0 Fraction of Inspired Oxygen 0 02/10/25 13:00 02/10/25 13:15 02/10/25 13:30 Temperature Pulse Rate 90 90 90 Respiratory Rate Blood Pressure 161/93 H 151/96 H 160/89 H Pulse Oximetry Oxygen Delivery Oxygen Flow Rate Fraction of Inspired Oxygen 02/10/25 13:45 02/10/25 14:00 02/10/25 14:15 Temperature Pulse Rate 92 91 94 Respiratory Rate Blood Pressure 153/88 H 160/91 H 155/89 H Pulse Oximetry Oxygen Delivery Oxygen Flow Rate Fraction of Inspired Oxygen 02/10/25 14:30 02/10/25 14:45 02/10/25 15:00 Temperature Pulse Rate 95 94 96 Respiratory Rate Blood Pressure 157/57 H 156/87 H 157/87 H Pulse Oximetry Oxygen Delivery Oxygen Flow Rate Fraction of Inspired Oxygen 02/10/25 15:15 02/10/25 15:28 02/10/25 15:30 Temperature Pulse Rate 94 98 96 Respiratory Rate Blood Pressure 153/83 H 123/85 131/83 Pulse Oximetry Oxygen Delivery Oxygen Flow Rate Fraction of Inspired Oxygen 02/10/25 15:45 02/10/25 15:56 02/10/25 20:00 Temperature Pulse Rate 94 95 Respiratory Rate Blood Pressure 158/91 H 151/89 H Pulse Oximetry 96 Oxygen Delivery Room Air Oxygen Flow Rate Fraction of Inspired Oxygen 02/10/25 21:43 02/10/25 21:48 02/11/25 05:46 Temperature 97.7 F 98.0 F Pulse Rate 93 90 106 H Respiratory Rate 16 14 Blood Pressure 176/92 H 186/99 H Pulse Oximetry 96 97 Oxygen Delivery Oxygen Flow Rate Fraction of Inspired Oxygen 02/11/25 09:25 02/11/25 09:25 Temperature Pulse Rate 111 H Respiratory Rate Blood Pressure Pulse Oximetry Oxygen Delivery Room Air Oxygen Flow Rate Fraction of Inspired Oxygen Intake/Output Intake/Output: Intake & Output 02/08/25 02/09/25 02/10/25 02/11/25 23:59 23:59 23:59 23:59 Intake Total 490 255 250 100 Output Total 1942 1221 Balance -1452 255 -971 100 Meds/Results Medications: Active Medications Generic Name Dose Route Start Last Admin Trade Name Freq PRN Reason Stop Dose Admin Acetaminophen 650 mg 02/02/25 09:12 02/10/25 12:11 Acetaminophen Elixir 325 Mg/10.15 Ml Udc FEED TUBE 650 mg Q4H PRN Administration Mild Pain (1-3) or Fever Amlodipine Besylate 10 mg 02/02/25 09:00 02/11/25 09:25 Amlodipine Besylate 10 Mg Tablet FEED TUBE 10 mg DAILY JAYME Administration Carvedilol 25 mg 02/10/25 09:00 02/11/25 09:25 Carvedilol 25 Mg Tablet FEED TUBE 25 mg Q12H JAYME Administration Clonidine HCl 1 patch 02/11/25 09:00 Clonidine 0.1 Mg/24 Hr Patch TRANSDERM WEEKLY JAYME Dextrose 12.5 gm 01/30/25 14:22 02/06/25 17:11 Dextrose 50% 25 Gm/50 Ml Syringe IV PUSH 12.5 gm PRN PRN Administration Hypoglycemia Protocol Diazepam 5 mg 01/29/25 22:29 02/11/25 03:19 Diazepam Inj (*Crx) 10 Mg/2 Ml Syringe IV PUSH 5 mg Q6H PRN Administration Intractable nausea vomiting Diphenhydramine HCl 25 mg 02/08/25 07:02 02/11/25 09:35 Diphenhydramine Hcl Inj 50 Mg/Ml Vial IV PUSH 25 mg Q4H PRN Administration Itching Escitalopram Oxalate 10 mg 02/02/25 09:00 02/11/25 09:25 Escitalopram Oxalate 10 Mg Tablet FEED TUBE 10 mg DAILY JAYME Administration Gabapentin 100 mg 02/02/25 09:00 02/11/25 09:25 Gabapentin 100 Mg Capsule FEED TUBE 100 mg TID JAYME Administration Glucagon 1 mg 01/30/25 14:22 Glucagon For Inj 1 Mg Vial IM PRN PRN Hypoglycemia Protocol Glucose 15 gm 01/30/25 14:22 Glucose Oral Gel 15 Gm Of Glucse In 37.5 Gm Tube PO PRN PRN Hypoglycemia Protocol Heparin Sodium (Beef Lung) 50 units 01/31/25 09:00 02/11/25 09:42 Heparin Flush 50 Units/5 Ml Syringe IV PUSH 50 units QAM JAYME Administration Heparin Sodium (Beef Lung) 50 units 01/30/25 10:15 02/10/25 21:49 Heparin Flush 50 Units/5 Ml Syringe IV PUSH 50 units PRN PRN Administration after intermittent infusion Heparin Sodium (Beef Lung) 50 units 01/30/25 10:15 02/08/25 04:37 Heparin Flush 50 Units/5 Ml Syringe IV PUSH 50 units PRN PRN Administration after blood draws Heparin Sodium (Porcine) 5,000 units 01/30/25 09:00 02/11/25 09:24 Heparin Sodium 5,000 Units/Ml Vial SUB-Q Not Given Q12HR [facility] Heparin Sodium (Porcine) 500 units 01/30/25 10:15 Heparin Sodium Lock Flush 500 Units/5 Ml Syringe IV PUSH PRN PRN see comments below Hydromorphone HCl 0.5 mg 02/09/25 12:20 02/11/25 05:50 Hydromorphone Hcl Inj (*Crx) 1 Mg/Ml Syr IV PUSH 0.5 mg Q8H PRN Administration Pain Rated 7-10 Albumin Human 50 mls @ 999 mls/hr 01/30/25 05:27 Albutein IVPB 03/01/25 05:26 Q10M PRN HYPOTENSION Dextrose 1,000 mls @ 100 mls/hr 01/30/25 14:22 Dextrose 5% 1,000 Ml IVPB PRN PRN Hypoglycemia Protocol Insulin Aspart 2 - 5 units 02/02/25 08:00 02/11/25 11:52 Insulin Aspart (*Bkc) 100 Units/Ml SUB-Q Not Given TIDWM [facility] Protocol Insulin Aspart 4 units 02/09/25 18:00 02/11/25 06:56 Insulin Aspart (*Bkc) 100 Units/Ml SUB-Q Not Given TID@0000,0600,1800 [facility] Insulin Aspart 4 units 02/09/25 12:20 Insulin Aspart (*Bkc) 100 Units/Ml SUB-Q DAILY@1200 PRN ONLY IF PT EATS LUNCH Insulin Glargine 20 units 02/10/25 09:00 02/11/25 09:30 Insulin Glargine (*Bkc) 100 Units/Ml SUB-Q 20 units DAILY JAYME Administration Isosorbide Dinitrate 20 mg 02/04/25 17:00 02/11/25 09:25 Isosorbide Dinitrate 20 Mg Tablet FEED TUBE 20 mg TID JAYME Administration Losartan Potassium 100 mg 02/11/25 09:00 02/11/25 09:24 Losartan Potassium 100 Mg Tablet FEED TUBE 100 mg DAILY JAYME Administration Miscellaneous Information 1 each 02/02/25 08:57 Pharmacist Communication Order XX 03/04/25 08:56 ONCE JAYME Miscellaneous Information 1 each 02/07/25 00:01 02/10/25 08:51 Please Renew Diazepam. Per [employer] Procedure, It Will Discontinue If Not Renewed. XX 03/09/25 00:00 1 each CLARIFY JAYME Administration Multi-Ingred Cream/Lotion/Oil/Oint 1 applic 02/08/25 09:00 02/10/25 12:17 Eucerin Cream 120 Gm Jar TOPICAL 1 applic DAILY JAYME Administration Ondansetron HCl 4 mg 01/30/25 18:35 02/09/25 09:15 Ondansetron Inj 4 Mg/2 Ml Vial IV PUSH 4 mg Q4H PRN Administration Nausea And Vomiting Oxycodone/Acetaminophen 1 tablet 02/08/25 07:01 02/10/25 17:36 Oxycodone/Acetaminophen (*Crx) 5-325 Mg Tablet FEED TUBE 1 tablet Q4H PRN Administration Pain Rated 4-6 Pantoprazole Sodium 40 mg 01/30/25 09:00 02/11/25 09:24 Pantoprazole Sodium Iv 40 Mg Vial IV PUSH 40 mg Q12HR JAYME Administration Promethazine HCl 25 mg 02/08/25 18:01 Promethazine Hcl 25 Mg Tablet FEED TUBE Q4H PRN Nausea And Vomiting Sodium Chloride 10 ml 01/30/25 14:00 02/11/25 06:57 Central Line Flush IV PUSH 10 ml Q8HR JAYME Administration Radiology Results: ITS Impressions Chest X-Ray 02/02/25 20:02 IMPRESSION: No acute pulmonary findings. Chest/Abdomen/Pelvis CT 02/05/25 07:39 IMPRESSION: 1. Persistent airspace and groundglass opacities in left lung lower lobe with volume loss, consistent with pneumonia versus atelectasis/scarring. 2. Mild mediastinal, retroperitoneal, and pelvic lymphadenopathy, likely reactive. Labs Labs: Laboratory Results - last 24 hr 02/10/25 02/10/25 02/11/25 16:33 21:46 00:32 WBC RBC Hgb Hct MCV MCH MCHC RDW Plt Count MPV Sodium Potassium Chloride Carbon Dioxide Anion Gap BUN Creatinine Estim Creat Clear Calc Estimated GFR Glucose POC Capillary Glucose 129 H 318 H 256 H Calcium Phosphorus Albumin 02/11/25 02/11/25 02/11/25 05:39 05:46 07:53 WBC 5.4 RBC 4.15 L Hgb 11.8 L Hct 38.6 MCV 93.0 MCH 28.4 MCHC 30.6 L RDW 17.6 H Plt Count 418 H MPV 10.0 Sodium 142 Potassium 4.1 Chloride 95 L Carbon Dioxide 31 H Anion Gap 16 H BUN 19 H D Creatinine 4.10 H Estim Creat Clear Calc 16 Estimated GFR 13 L Glucose 250 H POC Capillary Glucose 233 H 247 H Calcium 8.8 Phosphorus 3.9 Albumin 4.3 02/11/25 11:46 WBC RBC Hgb Hct MCV MCH MCHC RDW Plt Count MPV Sodium Potassium Chloride Carbon Dioxide Anion Gap BUN Creatinine Estim Creat Clear Calc Estimated GFR Glucose POC Capillary Glucose 243 H Calcium Phosphorus Albumin
[2025-02-11 14:00] VITALS: BP 126/74; PULSE 95; RESP 16; TEMP 36.6; O2SAT 99
--- NOTE | 2025-02-11 21:49 | PC.NURSE ---
pt c/o of pain on scale of 10/10 Dr. Campbell called at this time and will not change time or dose on medication. pt was notified and also this nurse offered to give pt her oxcy she states it makes her sick this nurse suggested taking it with the prn nausea medication and pt refused. will give Dilaudid at next dose available.
[2025-02-11 21:59] VITALS: BP 121/69; PULSE 84; RESP 16; TEMP 36.9; O2SAT 98
[2025-02-12] MEDS: HYDROmorphone HCL INJ (*CRX) 1 MG/ML SYR 0.5 MG IV PUSH ×2 (02:11→14:17)
[2025-02-12 04:53] VITALS: BP 147/79; PULSE 89; RESP 16; TEMP 36.5; O2SAT 99
[2025-02-12] MEDS: INSULIN ASPART (*BKC) 100 UNITS/ML SUB-Q ×4 (05:03→18:23)
[2025-02-12 05:04] LABS: Hematocrit 35.5 % (37.0-47.0); Hemoglobin 10.8 g/dL (12.0-15.0); Mean Corpuscular HGB Conc 30.4 g/dl (32-36); Mean Corpuscular Hemoglobin 28.8 pg (26-34); Mean Corpuscular Volume 94.7 fl (80-100); Platelet Count Result 393 k/mm3 (150-375); Red Blood Count 3.75 M/mm3 (4.2-5.4); White Blood Count 5.7 K/mm3 (4.5-10.0)
[2025-02-12] MEDS: CENTRAL LINE FLUSH 10 ML IV PUSH ×3 (05:06→22:02)
[2025-02-12 05:17] LABS: Albumin Level 3.7 g/dL (3.5-5.1); Anion Gap 10 mmol/L (4-12); Blood Urea Nitrogen 28 mg/dL (7-17); Calcium 8.3 mg/dL (8.4-10.2); Carbon Dioxide 32 mmol/L (22-30); Chloride 96 mmol/L (98-107); Estimated CRCL calculation 11 ml/min; Estimated Glomerular Filt Rate 8; Glucose 305 mg/dL (65-110); Potassium 4.0 mmol/L (3.4-5.0); Sodium 138 mmol/L (137-145)
[2025-02-12] MEDS: ESCITALOPRAM OXALATE 10 MG TABLET FEED TUBE (08:45)
[2025-02-12] MEDS: PANTOPRAZOLE SODIUM IV 40 MG VIAL IV PUSH ×2 (08:45→20:23)
[2025-02-12] MEDS: INSULIN GLARGINE (*BKC) 100 UNITS/ML 20 UNITS SUB-Q (08:45)
[2025-02-12] MEDS: GABAPENTIN 100 MG CAPSULE FEED TUBE ×3 (08:45→18:23)
[2025-02-12] MEDS: LOSARTAN POTASSIUM 100 MG TABLET FEED TUBE (08:45)
[2025-02-12] MEDS: ISOSORBIDE DINITRATE 20 MG TABLET FEED TUBE ×3 (08:45→18:23)
[2025-02-12 08:47] VITALS: PULSE 98
[2025-02-12] MEDS: diazePAM INJ (*CRX) 10 MG/2 ML SYRINGE 5 MG IV PUSH (10:26)
--- NOTE | 2025-02-12 11:23 | P.PNNP_ITS ---
Progress Note: A&P Assessment and Plan (1) End stage renal disease: Code(s): N18.6 - End stage renal disease Status: Chronic Assessment and Plan: * HD tomorrow * continue //Wednesday dialysis schedule while hospitalized * follow electrolytes, volume status, and clearance * outpatient dialysis clinic = [facility] in [place] * primary qualitative field coordinator = Dr. Odilon Tellez (2) DKA (diabetic ketoacidosis): Qualifiers: Diabetes mellitus complication detail: without coma Diabetes mellitus type: type 1 Qualified Code(s): E10.10 - Type 1 diabetes mellitus with ketoacidosis without coma Code(s): E11.10 - Type 2 diabetes mellitus with ketoacidosis without coma Status: Resolved Assessment and Plan: * resolved * as noted by evaluation in ER * recurrent and multiple ER visits/hospitalizations for this problems (usually gets most of her care at [facility] and more recently at [facility]) * s/p insulin gtt and weaned off * transitioned to SQ insulin (3) Nausea & vomiting: Qualifiers: Vomiting type: unspecified Qualified Code(s): R11.2 - Nausea with vomiting, unspecified Code(s): R11.2 - Nausea with vomiting, unspecified Status: Acute Assessment and Plan: * chronic and long standing issue (per patient and review of records) * cyclic in nature * thought to be secondary to diabetic gastroparesis * narcotics playing a role? * s/p recent G-J-tube placement to ensure adequate/supplemental nutrition given this issue * continue oral intake and supplement tube feeds as needed (4) Hyperkalemia: Code(s): E87.5 - Hyperkalemia Status: Acute Assessment and Plan: * fluctuates - note more so on the two day stretch (from Wednesday -> Wednesday) with regard to dialysis treatments * as noted by admission labs and AM labs on 01/30 * corrected with dialysis * follow trend (5) Diabetic gastroparesis: Code(s): E11.43 - Type 2 diabetes mellitus with diabetic autonomic (poly)neuropathy; K31.84 - Gastroparesis Status: Acute Assessment and Plan: * known and long standing issue * likely precipiting factor for admission symptoms (6) Anemia: Code(s): D64.9 - Anemia, unspecified Status: Chronic Assessment and Plan: * due to ESRD * Epogen with HD * follow trend of H/H (7) Hypertension: Code(s): I10 - Essential (primary) hypertension Status: Chronic Assessment and Plan: * quite elevated on admission * on home medications * titrate losartan, carvedilol, and isosorbide dinitrate as needed * follow trend of hemodynamics (8) Type 1 diabetes: Qualifiers: Diabetes mellitus complication status: with hyperglycemia Qualified Code(s): E10.65 - Type 1 diabetes mellitus with hyperglycemia Code(s): E10.9 - Type 1 diabetes mellitus without complications Status: Chronic Assessment and Plan: * see #1 * follow accu-cheks * on SQ insulin (SSI and Lantus) * glycemic control per hospitalist Will continue to follow. L Subjective Date/time seen: 02/12/25 11:23 Interval history: Follow-up for end stage renal disease on hemodialysis. Chart reviewed since last seen; improvement in nausea noted and apparently tolerated tube feeds overnight; abdominal pain seems better as well; no acute distress noted when seen. Exam 2 Narrative: General: WD/WN female in NAD Heart: normal S1 and S2; no rub Lungs: decreased at bases Abdomen: soft, nontender, nondistended, positive bowel sounds Extremities: no cyanosis or clubbing; no edema Skin: no nodules Objective Data Vital Signs Vital Signs: Vital Signs Temp Pulse Resp BP Pulse Ox O2 Del Method 02/12/25 08:47 98 02/12/25 08:00 Room Air 02/12/25 04:53 97.7 F 89 16 147/79 H 99 02/11/25 21:59 98.4 F 84 16 121/69 98 02/11/25 14:00 97.9 F 95 16 126/74 99 Intake/Output Intake/Output: Intake & Output 02/09/25 02/10/25 02/11/25 02/12/25 23:59 23:59 23:59 23:59 Intake Total 255 250 200 150 Output Total 1221 Balance 255 -971 200 150 Meds/Results Medications: Active Medications Generic Name Dose Route Start Last Admin Trade Name Freq PRN Reason Stop Dose Admin Acetaminophen 650 mg 02/02/25 09:12 02/10/25 12:11 Acetaminophen Elixir 325 Mg/10.15 Ml Udc FEED TUBE 650 mg Q4H PRN Administration Mild Pain (1-3) or Fever Amlodipine Besylate 10 mg 02/02/25 09:00 02/12/25 08:45 Amlodipine Besylate 10 Mg Tablet FEED TUBE 10 mg DAILY JAYME Administration Carvedilol 25 mg 02/10/25 09:00 02/12/25 08:47 Carvedilol 25 Mg Tablet FEED TUBE 25 mg Q12H JAYME Administration Clonidine HCl 1 patch 02/11/25 09:00 02/11/25 12:56 Clonidine 0.1 Mg/24 Hr Patch TRANSDERM 1 patch WEEKLY JAYME Administration Dextrose 12.5 gm 01/30/25 14:22 02/06/25 17:11 Dextrose 50% 25 Gm/50 Ml Syringe IV PUSH 12.5 gm PRN PRN Administration Hypoglycemia Protocol Diazepam 5 mg 01/29/25 22:29 02/12/25 10:26 Diazepam Inj (*Crx) 10 Mg/2 Ml Syringe IV PUSH 5 mg Q6H PRN Administration Intractable nausea vomiting Diphenhydramine HCl 50 mg 02/12/25 13:14 Diphenhydramine Hcl Inj 50 Mg/Ml Vial IV PUSH Q6HR PRN Itching Escitalopram Oxalate 10 mg 02/02/25 09:00 02/12/25 08:45 Escitalopram Oxalate 10 Mg Tablet FEED TUBE 10 mg DAILY JAYME Administration Gabapentin 100 mg 02/02/25 09:00 02/12/25 13:01 Gabapentin 100 Mg Capsule FEED TUBE 100 mg TID JAYME Administration Glucagon 1 mg 01/30/25 14:22 Glucagon For Inj 1 Mg Vial IM PRN PRN Hypoglycemia Protocol Glucose 15 gm 01/30/25 14:22 Glucose Oral Gel 15 Gm Of Glucse In 37.5 Gm Tube PO PRN PRN Hypoglycemia Protocol Heparin Sodium (Beef Lung) 50 units 01/31/25 09:00 02/12/25 08:45 Heparin Flush 50 Units/5 Ml Syringe IV PUSH 50 units QAM JAYME Administration Heparin Sodium (Beef Lung) 50 units 01/30/25 10:15 02/10/25 21:49 Heparin Flush 50 Units/5 Ml Syringe IV PUSH 50 units PRN PRN Administration after intermittent infusion Heparin Sodium (Beef Lung) 50 units 01/30/25 10:15 02/08/25 04:37 Heparin Flush 50 Units/5 Ml Syringe IV PUSH 50 units PRN PRN Administration after blood draws Heparin Sodium (Porcine) 5,000 units 01/30/25 09:00 02/12/25 08:47 Heparin Sodium 5,000 Units/Ml Vial SUB-Q Not Given Q12HR JAYME Heparin Sodium (Porcine) 500 units 01/30/25 10:15 Heparin Sodium Lock Flush 500 Units/5 Ml Syringe IV PUSH PRN PRN see comments below Hydromorphone HCl 0.5 mg 02/11/25 12:27 02/12/25 02:11 Hydromorphone Hcl Inj (*Crx) 1 Mg/Ml Syr IV PUSH 0.5 mg Q12H PRN Administration Pain Rated 7-10 Albumin Human 50 mls @ 999 mls/hr 01/30/25 05:27 Albutein IVPB 03/01/25 05:26 Q10M PRN HYPOTENSION Dextrose 1,000 mls @ 100 mls/hr 01/30/25 14:22 Dextrose 5% 1,000 Ml IVPB PRN PRN Hypoglycemia Protocol Insulin Aspart 2 - 5 units 02/02/25 08:00 02/12/25 12:15 Insulin Aspart (*Bkc) 100 Units/Ml SUB-Q Not Given TIDWM [facility] Protocol Insulin Aspart 5 units 02/11/25 18:00 02/12/25 05:03 Insulin Aspart (*Bkc) 100 Units/Ml SUB-Q 5 units TID@0000,0600,1800 JAYME Administration Insulin Aspart 5 units 02/11/25 12:32 Insulin Aspart (*Bkc) 100 Units/Ml SUB-Q DAILY@1200 PRN ONLY IF PT EATS LUNCH Insulin Glargine 20 units 02/10/25 09:00 02/12/25 08:45 Insulin Glargine (*Bkc) 100 Units/Ml SUB-Q 20 units DAILY JAYME Administration Isosorbide Dinitrate 20 mg 02/04/25 17:00 02/12/25 13:01 Isosorbide Dinitrate 20 Mg Tablet FEED TUBE 20 mg TID JAYME Administration Losartan Potassium 100 mg 02/11/25 09:00 02/12/25 08:45 Losartan Potassium 100 Mg Tablet FEED TUBE 100 mg DAILY JAYME Administration Miscellaneous Information 1 each 02/02/25 08:57 Pharmacist Communication Order XX 03/04/25 08:56 ONCE JAYME Miscellaneous Information 1 each 02/07/25 00:01 02/10/25 08:51 Please Renew Diazepam. Per [employer] Procedure, It Will Discontinue If Not Renewed. XX 03/09/25 00:00 1 each CLARIFY AJYME Administration Multi-Ingred Cream/Lotion/Oil/Oint 1 applic 02/08/25 09:00 02/12/25 10:24 Eucerin Cream 120 Gm Jar TOPICAL Not Given DAILY JAYME Ondansetron HCl 4 mg 01/30/25 18:35 02/09/25 09:15 Ondansetron Inj 4 Mg/2 Ml Vial IV PUSH 4 mg Q4H PRN Administration Nausea And Vomiting Oxycodone/Acetaminophen 1 tablet 02/08/25 07:01 02/10/25 17:36 Oxycodone/Acetaminophen (*Crx) 5-325 Mg Tablet FEED TUBE 1 tablet Q4H PRN Administration Pain Rated 4-6 Pantoprazole Sodium 40 mg 01/30/25 09:00 02/12/25 08:45 Pantoprazole Sodium Iv 40 Mg Vial IV PUSH 40 mg Q12HR JAYME Administration Promethazine HCl 25 mg 02/08/25 18:01 Promethazine Hcl 25 Mg Tablet FEED TUBE Q4H PRN Nausea And Vomiting Sodium Chloride 10 ml 01/30/25 14:00 02/12/25 13:02 Central Line Flush IV PUSH 10 ml Q8HR JAYME Administration Radiology Results: ITS Impressions Chest X-Ray 02/02/25 20:02 IMPRESSION: No acute pulmonary findings. Chest/Abdomen/Pelvis CT 02/05/25 07:39 IMPRESSION: 1. Persistent airspace and groundglass opacities in left lung lower lobe with volume loss, consistent with pneumonia versus atelectasis/scarring. 2. Mild mediastinal, retroperitoneal, and pelvic lymphadenopathy, likely reactive. Labs Labs: Laboratory Tests 02/12/25 04:50 02/12/25 04:50 Calcium 8.3 L Phosphorus 5.2 H Albumin 3.7
--- NOTE | 2025-02-12 13:15 | PC.NURSE ---
Patient refusing chest port needle change at this time. Educated patient on importance, and she stated If I tell you I don't want it, you can't do it.
--- NOTE | 2025-02-12 13:27 | P.PNIM_ITS ---
Progress Note: A&P Assessment and Plan (1) Nausea & vomiting: Qualifiers: Vomiting type: unspecified Qualified Code(s): R11.2 - Nausea with vomiting, unspecified Code(s): R11.2 - Nausea with vomiting, unspecified Status: Acute Assessment and Plan: History of chronic nausea and vomiting with known gastroparesis s/p GJ tube placement and gastric pacemaker Was having persistent abdominal pain requiring frequent dilaudid use but able to wean down. CT C/A/P showing persistent LLL airspace disease and mild adenopathy. The LLL PNA initially noted by CT on 12/23/24 but no prior imaging to review. On tube feeds at night which she tolerates at times Narcotics may be contributing to her nausea as a side effect and slowing her gastric motility. Abd soft with minimal pain and nml BMs; doubt obstructive process Continue to back off on narcotics. Hold off on repeating CT. Tolerated TF so GJ tube is functioning. Continue Zofran and phenergan prn. (2) Type 1 diabetes: Qualifiers: Diabetes mellitus complication status: with hyperglycemia Qualified Code(s): E10.65 - Type 1 diabetes mellitus with hyperglycemia Code(s): E10.9 - Type 1 diabetes mellitus without complications Status: Chronic Assessment and Plan: A1c 8.4 last month. She takes 15 units Lantus at home She gets tube feeds overnight and is on Novolog Q6hr (except at noon which is PRN if she eats). The patient's blood glucose was reviewed on 02/12 Glucose higher this morning (305) since she tolerated TF but only 130 at lunch. Patient also refusing scheduled insulin at times Continue AccuCheks covering with sliding scale. Hypoglycemia protocol available as needed. Will follow and encourage compliance. (3) DKA, type 1: Qualifiers: Diabetes mellitus complication detail: without coma Qualified Code(s): E10.10 - Type 1 diabetes mellitus with ketoacidosis without coma Code(s): E10.10 - Type 1 diabetes mellitus with ketoacidosis without coma Status: Acute Assessment and Plan: DKA on presentation. Her anion gap metabolic acidosis was complicated by history of end-stage renal disease. Pt was not given given IVF due to ESRD DKA protocol with insulin infusion and Q1H glucose monitoring Anion gap closed and patient was transition to subcutaneous insulin DKA resolved. Follow (4) End stage renal disease on dialysis: Code(s): N18.6 - End stage renal disease; Z99.2 - Dependence on renal dialysis Status: Acute Assessment and Plan: Inpatient dialysis per Nephrology Normally on schedule HD planned for tomorrow (5) SIRS (systemic inflammatory response syndrome): Code(s): R65.10 - Systemic inflammatory response syndrome (SIRS) of non-infectious origin without acute organ dysfunction Status: Acute Assessment and Plan: Findings suggestive of sirs likely from DKA. Procalcitonin level is 2.5 but patient was afebrile with normal WBC count. Abx were held. BCx negative. Urine culture mixed urogenital lupe 25-50 K. MRSA nasal swab negative. CT with findings of left lower lobe pneumonia but this seems more of a chronic finding and not much change since Dec. Probably more likely scarring. Started ceftriaxone and doxycycline 02/05/25 and completed a 5 day course. Continue to monitor off abx. (6) Hypertension: Code(s): I10 - Essential (primary) hypertension Status: Chronic Assessment and Plan: Patient's blood pressure was reviewed on 02/12 Blood pressure better controlled On Coreg, amlodipine, isosorbide and Cozaar. Clonidine patch ordered as well Continue to advance medications as needed. Plan DVT prophylaxis -heparin subQ (patient refusing most of the time); SCD added Nutrition -continue Tube Feeds at night Code Status - Full Code Subjective Date/time seen: 02/12/25 13:27 Interval history: 29yo female with a past medical history of ESRD due to type 1 DM with complications including diabetic peripheral neuropathy and gastroparesis status post recent G-tube placement for decompression in J-tube placement for enteral feeds who presented to the ER with 3 days of nausea vomiting and couple of hours of left-sided chest pain. Patient states to provider that she feels better today. Nausea still preent but able to tolerate tube feeding overnight. Abdominal pain better. +BMs. Exam Narrative: AF 97.7 147/79 98 16 99% ra Gen - NARD Chest - left upper chest port in place that is accessed. Right upper chest HD catheter in place. CTA bilaterally. CV - RRR S1/S2 Abd - soft, +BS. G/J tube in place. Nontender. Stimulator device left upper abdomen. Ext - no pedal edema. Psych -mood stable Skin -warm and dry Objective Data Vital Signs Vital Signs: Vital Signs - 24 hr 02/11/25 14:00 02/11/25 21:59 02/12/25 04:53 Temperature 97.9 F 98.4 F 97.7 F Pulse Rate 95 84 89 Respiratory Rate 16 16 16 Blood Pressure 126/74 121/69 147/79 H Pulse Oximetry 99 98 99 Oxygen Delivery 02/12/25 08:00 02/12/25 08:47 Temperature Pulse Rate 98 Respiratory Rate Blood Pressure Pulse Oximetry Oxygen Delivery Room Air Intake/Output Intake/Output: Intake & Output 02/09/25 02/10/25 02/11/25 02/12/25 23:59 23:59 23:59 23:59 Intake Total 255 250 200 150 Output Total 1221 Balance 255 -971 200 150 Meds/Results Medications: Active Medications Generic Name Dose Route Start Last Admin Trade Name Freq PRN Reason Stop Dose Admin Acetaminophen 650 mg 02/02/25 09:12 02/10/25 12:11 Acetaminophen Elixir 325 Mg/10.15 Ml Udc FEED TUBE 650 mg Q4H PRN Administration Mild Pain (1-3) or Fever Amlodipine Besylate 10 mg 02/02/25 09:00 02/12/25 08:45 Amlodipine Besylate 10 Mg Tablet FEED TUBE 10 mg DAILY JAYME Administration Carvedilol 25 mg 02/10/25 09:00 02/12/25 08:47 Carvedilol 25 Mg Tablet FEED TUBE 25 mg Q12H JAYME Administration Clonidine HCl 1 patch 02/11/25 09:00 02/11/25 12:56 Clonidine 0.1 Mg/24 Hr Patch TRANSDERM 1 patch WEEKLY JAYME Administration Dextrose 12.5 gm 01/30/25 14:22 02/06/25 17:11 Dextrose 50% 25 Gm/50 Ml Syringe IV PUSH 12.5 gm PRN PRN Administration Hypoglycemia Protocol Diazepam 5 mg 01/29/25 22:29 02/12/25 10:26 Diazepam Inj (*Crx) 10 Mg/2 Ml Syringe IV PUSH 5 mg Q6H PRN Administration Intractable nausea vomiting Diphenhydramine HCl 50 mg 02/12/25 13:14 Diphenhydramine Hcl Inj 50 Mg/Ml Vial IV PUSH Q6HR PRN Itching Escitalopram Oxalate 10 mg 02/02/25 09:00 02/12/25 08:45 Escitalopram Oxalate 10 Mg Tablet FEED TUBE 10 mg DAILY JAYME Administration Gabapentin 100 mg 02/02/25 09:00 02/12/25 13:01 Gabapentin 100 Mg Capsule FEED TUBE 100 mg TID JAYME Administration Glucagon 1 mg 01/30/25 14:22 Glucagon For Inj 1 Mg Vial IM PRN PRN Hypoglycemia Protocol Glucose 15 gm 01/30/25 14:22 Glucose Oral Gel 15 Gm Of Glucse In 37.5 Gm Tube PO PRN PRN Hypoglycemia Protocol Heparin Sodium (Beef Lung) 50 units 01/31/25 09:00 02/12/25 08:45 Heparin Flush 50 Units/5 Ml Syringe IV PUSH 50 units QAM JAYME Administration Heparin Sodium (Beef Lung) 50 units 01/30/25 10:15 02/10/25 21:49 Heparin Flush 50 Units/5 Ml Syringe IV PUSH 50 units PRN PRN Administration after intermittent infusion Heparin Sodium (Beef Lung) 50 units 01/30/25 10:15 02/08/25 04:37 Heparin Flush 50 Units/5 Ml Syringe IV PUSH 50 units PRN PRN Administration after blood draws Heparin Sodium (Porcine) 5,000 units 01/30/25 09:00 02/12/25 08:47 Heparin Sodium 5,000 Units/Ml Vial SUB-Q Not Given Q12HR [facility] Heparin Sodium (Porcine) 500 units 01/30/25 10:15 Heparin Sodium Lock Flush 500 Units/5 Ml Syringe IV PUSH PRN PRN see comments below Hydromorphone HCl 0.5 mg 02/11/25 12:27 02/12/25 02:11 Hydromorphone Hcl Inj (*Crx) 1 Mg/Ml Syr IV PUSH 0.5 mg Q12H PRN Administration Pain Rated 7-10 Albumin Human 50 mls @ 999 mls/hr 01/30/25 05:27 Albutein IVPB 03/01/25 05:26 Q10M PRN HYPOTENSION Dextrose 1,000 mls @ 100 mls/hr 01/30/25 14:22 Dextrose 5% 1,000 Ml IVPB PRN PRN Hypoglycemia Protocol Insulin Aspart 2 - 5 units 02/02/25 08:00 02/12/25 12:15 Insulin Aspart (*Bkc) 100 Units/Ml SUB-Q Not Given TIDWM JAYME Protocol Insulin Aspart 5 units 02/11/25 18:00 02/12/25 05:03 Insulin Aspart (*Bkc) 100 Units/Ml SUB-Q 5 units TID@0000,0600,1800 JAYME Administration Insulin Aspart 5 units 02/11/25 12:32 Insulin Aspart (*Bkc) 100 Units/Ml SUB-Q DAILY@1200 PRN ONLY IF PT EATS LUNCH Insulin Glargine 20 units 02/10/25 09:00 02/12/25 08:45 Insulin Glargine (*Bkc) 100 Units/Ml SUB-Q 20 units DAILY JAYME Administration Isosorbide Dinitrate 20 mg 02/04/25 17:00 02/12/25 13:01 Isosorbide Dinitrate 20 Mg Tablet FEED TUBE 20 mg TID JAYME Administration Losartan Potassium 100 mg 02/11/25 09:00 02/12/25 08:45 Losartan Potassium 100 Mg Tablet FEED TUBE 100 mg DAILY JAYME Administration Miscellaneous Information 1 each 02/02/25 08:57 Pharmacist Communication Order XX 03/04/25 08:56 ONCE JAYME Miscellaneous Information 1 each 02/07/25 00:01 02/10/25 08:51 Please Renew Diazepam. Per [employer] Procedure, It Will Discontinue If Not Renewed. XX 03/09/25 00:00 1 each CLARIFY JAYME Administration Multi-Ingred Cream/Lotion/Oil/Oint 1 applic 02/08/25 09:00 02/12/25 10:24 Eucerin Cream 120 Gm Jar TOPICAL Not Given DAILY JAYME Ondansetron HCl 4 mg 01/30/25 18:35 02/09/25 09:15 Ondansetron Inj 4 Mg/2 Ml Vial IV PUSH 4 mg Q4H PRN Administration Nausea And Vomiting Oxycodone/Acetaminophen 1 tablet 02/08/25 07:01 02/10/25 17:36 Oxycodone/Acetaminophen (*Crx) 5-325 Mg Tablet FEED TUBE 1 tablet Q4H PRN Administration Pain Rated 4-6 Pantoprazole Sodium 40 mg 01/30/25 09:00 02/12/25 08:45 Pantoprazole Sodium Iv 40 Mg Vial IV PUSH 40 mg Q12HR JAYME Administration Promethazine HCl 25 mg 02/08/25 18:01 Promethazine Hcl 25 Mg Tablet FEED TUBE Q4H PRN Nausea And Vomiting Sodium Chloride 10 ml 01/30/25 14:00 02/12/25 13:02 Central Line Flush IV PUSH 10 ml Q8HR JAYME Administration Radiology Results: ITS Impressions Chest X-Ray 02/02/25 20:02 IMPRESSION: No acute pulmonary findings. Chest/Abdomen/Pelvis CT 02/05/25 07:39 IMPRESSION: 1. Persistent airspace and groundglass opacities in left lung lower lobe with volume loss, consistent with pneumonia versus atelectasis/scarring. 2. Mild mediastinal, retroperitoneal, and pelvic lymphadenopathy, likely reactive. Labs Labs: Laboratory Results - last 24 hr 02/11/25 02/11/25 02/12/25 16:58 21:58 00:27 WBC RBC Hgb Hct MCV MCH MCHC RDW Plt Count MPV Sodium Potassium Chloride Carbon Dioxide Anion Gap BUN Creatinine Estim Creat Clear Calc Estimated GFR Glucose POC Capillary Glucose 135 H 162 H 206 H Calcium Phosphorus Albumin 02/12/25 02/12/25 02/12/25 04:50 04:57 07:52 WBC 5.7 RBC 3.75 L Hgb 10.8 L Hct 35.5 L MCV 94.7 MCH 28.8 MCHC 30.4 L RDW 17.6 H Plt Count 393 H MPV 10.2 Sodium 138 Potassium 4.0 Chloride 96 L Carbon Dioxide 32 H Anion Gap 10 BUN 28 H Creatinine 6.17 H Estim Creat Clear Calc 11 Estimated GFR 8 L Glucose 305 H POC Capillary Glucose 297 H 217 H Calcium 8.3 L Phosphorus 5.2 H Albumin 3.7 02/12/25 11:54 WBC RBC Hgb Hct MCV MCH MCHC RDW Plt Count MPV Sodium Potassium Chloride Carbon Dioxide Anion Gap BUN Creatinine Estim Creat Clear Calc Estimated GFR Glucose POC Capillary Glucose 130 H Calcium Phosphorus Albumin
[2025-02-12 14:00] VITALS: BP 97/51; PULSE 101; TEMP 36.3; O2SAT 99
[2025-02-12 20:21] VITALS: BP 119/69; PULSE 76; RESP 16; TEMP 36.5; O2SAT 98
[2025-02-13] VITALS (19 sets, daily range): BP systolic 140–194; BP diastolic 45–114; PULSE 77–93; RESP 14–16; TEMP 35.8–37; O2SAT 95–100
[2025-02-13] MEDS: INSULIN ASPART (*BKC) 100 UNITS/ML SUB-Q ×4 (00:36→23:35)
[2025-02-13] MEDS: HYDROmorphone HCL INJ (*CRX) 1 MG/ML SYR 0.5 MG IV PUSH ×2 (02:13→13:46)
[2025-02-13] MEDS: CENTRAL LINE FLUSH 10 ML IV PUSH ×3 (05:04→21:00)
[2025-02-13 05:11] LABS: Albumin Level 3.6 g/dL (3.5-5.1); Anion Gap 12 mmol/L (4-12); Blood Urea Nitrogen 39 mg/dL (7-17); Calcium 7.7 mg/dL (8.4-10.2); Carbon Dioxide 32 mmol/L (22-30); Chloride 93 mmol/L (98-107); Estimated CRCL calculation 9 ml/min; Estimated Glomerular Filt Rate 6; Glucose 369 mg/dL (65-110); Potassium 4.1 mmol/L (3.4-5.0); Sodium 137 mmol/L (137-145)
[2025-02-13] MEDS: EPOETIN ALFA-EPBX 10,000 UNITS/ML VIAL 10000 UNITS IV PUSH (08:34)
[2025-02-13] MEDS: PANTOPRAZOLE SODIUM IV 40 MG VIAL IV PUSH (09:06)
[2025-02-13] MEDS: EUCERIN CREAM 120 GM JAR 1 APPLIC TOPICAL (09:12)
[2025-02-13] MEDS: INSULIN GLARGINE (*BKC) 100 UNITS/ML 22 UNITS SUB-Q (09:13)
--- NOTE | 2025-02-13 09:55 | P.PNNP_ITS ---
Progress Note: A&P Assessment and Plan (1) End stage renal disease: Code(s): N18.6 - End stage renal disease Status: Chronic Assessment and Plan: * HD today * continue //Wednesday dialysis schedule while hospitalized * follow electrolytes, volume status, and clearance * outpatient dialysis clinic = [facility] in [place] * primary nail making machine setter = Dr. Odilon Tellez (2) DKA (diabetic ketoacidosis): Qualifiers: Diabetes mellitus complication detail: without coma Diabetes mellitus type: type 1 Qualified Code(s): E10.10 - Type 1 diabetes mellitus with ketoacidosis without coma Code(s): E11.10 - Type 2 diabetes mellitus with ketoacidosis without coma Status: Resolved Assessment and Plan: * resolved * as noted by evaluation in ER * recurrent and multiple ER visits/hospitalizations for this problems (usually gets most of her care at [facility] and more recently at [facility]) * s/p insulin gtt and weaned off * transitioned to SQ insulin (3) Nausea & vomiting: Qualifiers: Vomiting type: unspecified Qualified Code(s): R11.2 - Nausea with vomiting, unspecified Code(s): R11.2 - Nausea with vomiting, unspecified Status: Acute Assessment and Plan: * chronic and long standing issue (per patient and review of records) * cyclic in nature * thought to be secondary to diabetic gastroparesis * narcotics playing a role? * s/p recent G-J-tube placement to ensure adequate/supplemental nutrition given this issue * continue oral intake and supplement tube feeds as needed (4) Hyperkalemia: Code(s): E87.5 - Hyperkalemia Status: Acute Assessment and Plan: * fluctuates - note more so on the two day stretch (from Wednesday -> Wednesday) with regard to dialysis treatments * as noted by admission labs and AM labs on 01/30 * corrected with dialysis * follow trend (5) Diabetic gastroparesis: Code(s): E11.43 - Type 2 diabetes mellitus with diabetic autonomic (poly)neuropathy; K31.84 - Gastroparesis Status: Acute Assessment and Plan: * known and long standing issue * likely precipiting factor for admission symptoms (6) Anemia: Code(s): D64.9 - Anemia, unspecified Status: Chronic Assessment and Plan: * due to ESRD * Epogen with HD * follow trend of H/H (7) Hypertension: Code(s): I10 - Essential (primary) hypertension Status: Chronic Assessment and Plan: * quite elevated on admission * on home medications * titrate losartan, carvedilol, and isosorbide dinitrate as needed * follow trend of hemodynamics (8) Type 1 diabetes: Qualifiers: Diabetes mellitus complication status: with hyperglycemia Qualified Code(s): E10.65 - Type 1 diabetes mellitus with hyperglycemia Code(s): E10.9 - Type 1 diabetes mellitus without complications Status: Chronic Assessment and Plan: * see #1 * follow accu-cheks * on SQ insulin (SSI and Lantus) * glycemic control per hospitalist Will continue to follow. L Subjective Date/time seen: 02/13/25 09:55 Interval history: Follow-up for end stage renal disease on hemodialysis. Tolerating dialysis treatment at the time of my visit (seen on HD at 9:45am); resting comfortably when seen and apparently just received some IV benadryl as well; no apparent distress noted. Exam 2 Narrative: General: WD/WN female in NAD Heart: normal S1 and S2; no rub Lungs: decreased at bases Abdomen: soft, nontender, nondistended, positive bowel sounds Extremities: no cyanosis or clubbing; no edema Skin: warm and dry Objective Data Vital Signs Vital Signs: Vital Signs Temp Pulse Resp BP Pulse Ox O2 Del Method 02/13/25 09:45 91 172/105 H 02/13/25 09:30 90 174/111 H 02/13/25 09:15 88 176/99 H 02/13/25 09:00 80 161/98 H 02/13/25 08:45 88 185/114 H 02/13/25 08:30 90 191/112 H 02/13/25 08:15 86 194/113 H 02/13/25 07:59 88 194/111 H 02/13/25 07:50 98.1 F 88 16 184/102 H 100 02/13/25 07:30 Room Air 02/13/25 04:45 97.8 F 77 16 140/84 96 02/12/25 20:21 97.7 F 76 16 119/69 98 02/12/25 14:00 97.4 F L 101 H 97/51 L 99 Intake/Output Intake/Output: Intake & Output 02/10/25 02/11/25 02/12/25 02/13/25 23:59 23:59 23:59 23:59 Intake Total 250 200 730 350 Output Total 1221 Balance -971 200 730 350 Meds/Results Medications: Active Medications Generic Name Dose Route Start Last Admin Trade Name Freq PRN Reason Stop Dose Admin Acetaminophen 650 mg 02/02/25 09:12 02/10/25 12:11 Acetaminophen Elixir 325 Mg/10.15 Ml Udc FEED TUBE 650 mg Q4H PRN Administration Mild Pain (1-3) or Fever Amlodipine Besylate 10 mg 02/02/25 09:00 02/12/25 08:45 Amlodipine Besylate 10 Mg Tablet FEED TUBE 10 mg DAILY JAYME Administration Carvedilol 25 mg 02/10/25 09:00 02/12/25 20:23 Carvedilol 25 Mg Tablet FEED TUBE 25 mg Q12H JAYME Administration Clonidine HCl 1 patch 02/11/25 09:00 02/11/25 12:56 Clonidine 0.1 Mg/24 Hr Patch TRANSDERM 1 patch WEEKLY JAYME Administration Dextrose 12.5 gm 01/30/25 14:22 02/06/25 17:11 Dextrose 50% 25 Gm/50 Ml Syringe IV PUSH 12.5 gm PRN PRN Administration Hypoglycemia Protocol Diazepam 5 mg 01/29/25 22:29 02/12/25 10:26 Diazepam Inj (*Crx) 10 Mg/2 Ml Syringe IV PUSH 5 mg Q6H PRN Administration Intractable nausea vomiting Diphenhydramine HCl 50 mg 02/12/25 13:14 02/13/25 09:06 Diphenhydramine Hcl Inj 50 Mg/Ml Vial IV PUSH 50 mg Q6HR PRN Administration Itching Epoetin Live-epbx 10,000 units 02/13/25 18:41 02/13/25 08:34 Epoetin Live-Epbx 10,000 Units/Ml Vial IV PUSH 02/13/25 18:42 10,000 units ONCE ONE Administration Escitalopram Oxalate 10 mg 02/02/25 09:00 02/12/25 08:45 Escitalopram Oxalate 10 Mg Tablet FEED TUBE 10 mg DAILY JAYME Administration Gabapentin 100 mg 02/02/25 09:00 02/13/25 09:56 Gabapentin 100 Mg Capsule FEED TUBE Not Given TID JAYME Glucagon 1 mg 01/30/25 14:22 Glucagon For Inj 1 Mg Vial IM PRN PRN Hypoglycemia Protocol Glucose 15 gm 01/30/25 14:22 Glucose Oral Gel 15 Gm Of Glucse In 37.5 Gm Tube PO PRN PRN Hypoglycemia Protocol Heparin Sodium (Beef Lung) 50 units 01/31/25 09:00 02/13/25 09:06 Heparin Flush 50 Units/5 Ml Syringe IV PUSH 50 units QAM JAYME Administration Heparin Sodium (Beef Lung) 50 units 01/30/25 10:15 02/10/25 21:49 Heparin Flush 50 Units/5 Ml Syringe IV PUSH 50 units PRN PRN Administration after intermittent infusion Heparin Sodium (Beef Lung) 50 units 01/30/25 10:15 02/08/25 04:37 Heparin Flush 50 Units/5 Ml Syringe IV PUSH 50 units PRN PRN Administration after blood draws Heparin Sodium (Porcine) 5,000 units 01/30/25 09:00 02/13/25 09:12 Heparin Sodium 5,000 Units/Ml Vial SUB-Q Not Given Q12HR [facility] Heparin Sodium (Porcine) 500 units 01/30/25 10:15 Heparin Sodium Lock Flush 500 Units/5 Ml Syringe IV PUSH PRN PRN see comments below Hydromorphone HCl 0.5 mg 02/13/25 07:27 Hydromorphone Hcl Inj (*Crx) 1 Mg/Ml Syr IV PUSH DAILY PRN Pain Rated 7-10 Albumin Human 50 mls @ 999 mls/hr 01/30/25 05:27 Albutein IVPB 03/01/25 05:26 Q10M PRN HYPOTENSION Dextrose 1,000 mls @ 100 mls/hr 01/30/25 14:22 Dextrose 5% 1,000 Ml IVPB PRN PRN Hypoglycemia Protocol Insulin Aspart 2 - 5 units 02/02/25 08:00 02/13/25 09:12 Insulin Aspart (*Bkc) 100 Units/Ml SUB-Q Not Given TIDWM [facility] Protocol Insulin Aspart 5 units 02/11/25 18:00 02/13/25 05:02 Insulin Aspart (*Bkc) 100 Units/Ml SUB-Q 5 units TID@0000,0600,1800 JAYME Administration Insulin Aspart 5 units 02/11/25 12:32 Insulin Aspart (*Bkc) 100 Units/Ml SUB-Q DAILY@1200 PRN ONLY IF PT EATS LUNCH Insulin Glargine 22 units 02/13/25 09:00 02/13/25 09:13 Insulin Glargine (*Bkc) 100 Units/Ml SUB-Q 22 units DAILY JAYME Administration Isosorbide Dinitrate 20 mg 02/04/25 17:00 02/13/25 09:56 Isosorbide Dinitrate 20 Mg Tablet FEED TUBE Not Given TID JAYME Losartan Potassium 100 mg 02/11/25 09:00 02/12/25 08:45 Losartan Potassium 100 Mg Tablet FEED TUBE 100 mg DAILY JAYME Administration Miscellaneous Information 1 each 02/02/25 08:57 Pharmacist Communication Order XX 03/04/25 08:56 ONCE JAYME Miscellaneous Information 1 each 02/07/25 00:01 02/10/25 08:51 Please Renew Diazepam. Per [employer] Procedure, It Will Discontinue If Not Renewed. XX 03/09/25 00:00 1 each CLARIFY JAYME Administration Multi-Ingred Cream/Lotion/Oil/Oint 1 applic 02/08/25 09:00 02/13/25 09:12 Eucerin Cream 120 Gm Jar TOPICAL 1 applic DAILY JAYME Administration Ondansetron HCl 4 mg 01/30/25 18:35 02/09/25 09:15 Ondansetron Inj 4 Mg/2 Ml Vial IV PUSH 4 mg Q4H PRN Administration Nausea And Vomiting Oxycodone/Acetaminophen 1 tablet 02/08/25 07:01 02/10/25 17:36 Oxycodone/Acetaminophen (*Crx) 5-325 Mg Tablet FEED TUBE 1 tablet Q4H PRN Administration Pain Rated 4-6 Pantoprazole Sodium 40 mg 01/30/25 09:00 02/13/25 09:06 Pantoprazole Sodium Iv 40 Mg Vial IV PUSH 40 mg Q12HR JAYME Administration Promethazine HCl 25 mg 02/08/25 18:01 Promethazine Hcl 25 Mg Tablet FEED TUBE Q4H PRN Nausea And Vomiting Sodium Chloride 10 ml 01/30/25 14:00 02/13/25 05:04 Central Line Flush IV PUSH 10 ml Q8HR JAMYE Administration Radiology Results: ITS Impressions Chest X-Ray 02/02/25 20:02 IMPRESSION: No acute pulmonary findings. Chest/Abdomen/Pelvis CT 02/05/25 07:39 IMPRESSION: 1. Persistent airspace and groundglass opacities in left lung lower lobe with volume loss, consistent with pneumonia versus atelectasis/scarring. 2. Mild mediastinal, retroperitoneal, and pelvic lymphadenopathy, likely reactive. Labs Labs: Laboratory Tests 02/12/25 04:50 02/13/25 04:36 Calcium 7.7 L Phosphorus 6.2 H Albumin 3.6
[2025-02-13] MEDS: ESCITALOPRAM OXALATE 10 MG TABLET FEED TUBE (11:34)
[2025-02-13] MEDS: GABAPENTIN 100 MG CAPSULE FEED TUBE (11:34)
[2025-02-13] MEDS: ISOSORBIDE DINITRATE 20 MG TABLET FEED TUBE (11:34)
[2025-02-13] MEDS: LOSARTAN POTASSIUM 100 MG TABLET FEED TUBE (11:35)
[2025-02-13] MEDS: diazePAM INJ (*CRX) 10 MG/2 ML SYRINGE 5 MG IV PUSH (11:36)
--- NOTE | 2025-02-13 12:50 | PCNFU ---
Nutrition Follow-Up Complete: Inadequate oral intake related to altered GI function as evidenced by need for full tube feeds Goal: Meet estimated nutrition needs Patient will continue current goal. Pt current nutrition is Regular with J tube feedings of Nepro at 45 ml/hr. Last recorded weight is 64.8 kg, down from 70 kg on admit. Dialysis patient. Bowel Motility: Last reported BM per EMR 02/10. Spoke with nursing today. Labs Reviewed: PO4 6.2, BUN 39, Cr 7.42, Glu 369, Hgb 10.8, Hct 35.5 Meds Noted: Heparin, Protonix, Benadryl Skin: WNL Additional Notes:Patient remains on a Regular diet. Intakes has been very inconsistent and patient had been reported refusing tube feedings. She is is currently taking her tube feedings of Nepro at 45 ml/hr her J tube (14 hours, 6pm-10am) providing an additional 1134 kcal/43 gm protein/458 ml water. Flush 30 ml q 4 hours. Dialysis today. Discussions regarding palliative care at discharge. Agree with diet orders at this time. Monitoring tube feeding tolerance, labs, weights, meds, output, plan of care Follow up Wednesday/Wednesday. Daily rounds
--- NOTE | 2025-02-13 16:30 | P.PNIM_ITS ---
Progress Note: A&P Assessment and Plan (1) Nausea & vomiting: Qualifiers: Vomiting type: unspecified Qualified Code(s): R11.2 - Nausea with vomiting, unspecified Code(s): R11.2 - Nausea with vomiting, unspecified Status: Acute Assessment and Plan: History of chronic nausea and vomiting with known gastroparesis s/p GJ tube placement and gastric pacemaker Was having persistent abdominal pain requiring frequent dilaudid use but able to wean down. CT C/A/P showing persistent LLL airspace disease and mild adenopathy. The LLL PNA initially noted by CT on 12/23/24 but no prior imaging to review. On tube feeds at night which she tolerates at times Narcotics may be contributing to her nausea as a side effect and slowing her gastric motility. Abd soft with minimal pain and nml BMs; doubt obstructive process. Tolerated TF so GJ tube is functioning. Probably a component of cyclic vomiting syndrome Will stop dilaudid and percocet. Hold off on repeating CT. Continue Zofran and phenergan prn. Change Benadryl to Q8hr (2) Type 1 diabetes: Qualifiers: Diabetes mellitus complication status: with hyperglycemia Qualified Code(s): E10.65 - Type 1 diabetes mellitus with hyperglycemia Code(s): E10.9 - Type 1 diabetes mellitus without complications Status: Chronic Assessment and Plan: A1c 8.4 last month. She takes 15 units Lantus at home She gets tube feeds overnight and is on Novolog Q6hr (except at noon which is PRN if she eats). The patient's blood glucose was reviewed on 02/13 Glucose higher this morning (369) since she tolerated TF Continue AccuCheks covering with sliding scale. Hypoglycemia protocol available as needed. Advance Lantus this morning. (3) DKA, type 1: Qualifiers: Diabetes mellitus complication detail: without coma Qualified Code(s): E10.10 - Type 1 diabetes mellitus with ketoacidosis without coma Code(s): E10.10 - Type 1 diabetes mellitus with ketoacidosis without coma Status: Acute Assessment and Plan: DKA on presentation. Her anion gap metabolic acidosis was complicated by history of ESRD Pt was not given given IVF due to ESRD DKA protocol with insulin infusion and Q1H glucose monitoring Anion gap closed and patient was transition to subcutaneous insulin DKA resolved. Follow (4) End stage renal disease on dialysis: Code(s): N18.6 - End stage renal disease; Z99.2 - Dependence on renal dialysis Status: Acute Assessment and Plan: Inpatient dialysis per Nephrology Normally on schedule Tolerated HD today. (5) SIRS (systemic inflammatory response syndrome): Code(s): R65.10 - Systemic inflammatory response syndrome (SIRS) of non-infectious origin without acute organ dysfunction Status: Acute Assessment and Plan: Findings suggestive of sirs likely from DKA. Procalcitonin level is 2.5 but patient was afebrile with normal WBC count. Abx were held. BCx negative. Urine culture mixed urogenital lupe 25-50 K. MRSA nasal swab negative. CT with findings of left lower lobe pneumonia but this seems more of a chronic finding and not much change since Dec. Probably more likely scarring. Started ceftriaxone and doxycycline 02/05/25 and completed a 5 day course. Continue to monitor off abx. (6) Hypertension: Code(s): I10 - Essential (primary) hypertension Status: Chronic Assessment and Plan: Patient's blood pressure was reviewed on 02/13 Blood pressure was soft yesterday but remains elevated since On Coreg, amlodipine, isosorbide and Cozaar. Clonidine patch ordered as well BP elevated during HD. Continue to advance medications as needed. Plan DVT prophylaxis -heparin subQ (patient refusing most of the time); SCD added Nutrition -continue Tube Feeds at night as she tolerates Code Status - Full Code Dispostion - explained to patient not much more to offer. She supposedly has been set up with palliative care but [facility] declined the patient referral due to previous unsuccessful attempts to contact patient to admit. Subjective Date/time seen: 02/13/25 16:30 Interval history: 29yo female with a past medical history of ESRD due to type 1 DM with complications including diabetic peripheral neuropathy and gastroparesis status post recent G-tube placement for decompression in J-tube placement for enteral feeds who presented to the ER with 3 days of nausea vomiting and couple of hours of left-sided chest pain. Patient with headache and nausea after HD today. She is vomiting as well. Slight LUQ pain. Exam Narrative: AF 98.5 164/81 87 14 98% ra Gen - NARD Chest - left upper chest port. Right upper chest HD catheter in place. CTA bilaterally. CV - RRR S1/S2 Abd - soft, +BS. G/J tube in place. Nontender. Stimulator device left upper abdomen. Ext - no pedal edema. Psych -depressed mood Skin -warm and dry Objective Data Vital Signs Vital Signs: Vital Signs - 24 hr 02/12/25 20:21 02/13/25 04:45 02/13/25 07:30 Temperature 97.7 F 97.8 F Pulse Rate 76 77 Respiratory Rate 16 16 Blood Pressure 119/69 140/84 Pulse Oximetry 98 96 Oxygen Delivery Room Air 02/13/25 07:50 02/13/25 07:59 02/13/25 08:15 Temperature 98.1 F Pulse Rate 88 88 86 Respiratory Rate 16 Blood Pressure 184/102 H 194/111 H 194/113 H Pulse Oximetry 100 Oxygen Delivery 02/13/25 08:30 02/13/25 08:45 02/13/25 09:00 Temperature Pulse Rate 90 88 80 Respiratory Rate Blood Pressure 191/112 H 185/114 H 161/98 H Pulse Oximetry Oxygen Delivery 02/13/25 09:15 02/13/25 09:30 02/13/25 09:45 Temperature Pulse Rate 88 90 91 Respiratory Rate Blood Pressure 176/99 H 174/111 H 172/105 H Pulse Oximetry Oxygen Delivery 02/13/25 10:00 02/13/25 10:15 02/13/25 10:30 Temperature Pulse Rate 89 92 89 Respiratory Rate Blood Pressure 181/45 H 166/101 H 159/96 H Pulse Oximetry Oxygen Delivery 02/13/25 10:45 02/13/25 11:00 02/13/25 11:09 Temperature 98.1 F Pulse Rate 89 89 90 Respiratory Rate 16 Blood Pressure 155/95 H 140/94 H 158/97 H Pulse Oximetry 99 Oxygen Delivery 02/13/25 11:09 02/13/25 11:34 02/13/25 14:00 Temperature 98.1 F 98.5 F Pulse Rate 90 90 87 Respiratory Rate 16 14 Blood Pressure 158/97 H 164/81 H Pulse Oximetry 99 98 Oxygen Delivery Intake/Output Intake/Output: Intake & Output 02/10/25 02/11/25 02/12/25 02/13/25 23:59 23:59 23:59 23:59 Intake Total 250 026 147 0089 Output Total 1221 2000 Balance -971 200 730 -756 Meds/Results Medications: Active Medications Generic Name Dose Route Start Last Admin Trade Name Freq PRN Reason Stop Dose Admin Acetaminophen 650 mg 02/02/25 09:12 02/10/25 12:11 Acetaminophen Elixir 325 Mg/10.15 Ml Udc FEED TUBE 650 mg Q4H PRN Administration Mild Pain (1-3) or Fever Amlodipine Besylate 10 mg 02/02/25 09:00 02/13/25 11:34 Amlodipine Besylate 10 Mg Tablet FEED TUBE 10 mg DAILY JAYME Administration Carvedilol 25 mg 02/10/25 09:00 02/13/25 11:34 Carvedilol 25 Mg Tablet FEED TUBE 25 mg Q12H JAYME Administration Clonidine HCl 1 patch 02/11/25 09:00 02/11/25 12:56 Clonidine 0.1 Mg/24 Hr Patch TRANSDERM 1 patch WEEKLY JAYME Administration Dextrose 12.5 gm 01/30/25 14:22 02/06/25 17:11 Dextrose 50% 25 Gm/50 Ml Syringe IV PUSH 12.5 gm PRN PRN Administration Hypoglycemia Protocol Diazepam 5 mg 01/29/25 22:29 02/13/25 11:36 Diazepam Inj (*Crx) 10 Mg/2 Ml Syringe IV PUSH 5 mg Q6H PRN Administration Intractable nausea vomiting Diphenhydramine HCl 50 mg 02/12/25 13:14 02/13/25 15:28 Diphenhydramine Hcl Inj 50 Mg/Ml Vial IV PUSH 50 mg Q6HR PRN Administration Itching Epoetin Live-epbx 10,000 units 02/13/25 18:41 02/13/25 08:34 Epoetin Live-Epbx 10,000 Units/Ml Vial IV PUSH 02/13/25 18:42 10,000 units ONCE ONE Administration Escitalopram Oxalate 10 mg 02/02/25 09:00 02/13/25 11:34 Escitalopram Oxalate 10 Mg Tablet FEED TUBE 10 mg DAILY JAYME Administration Gabapentin 100 mg 02/02/25 09:00 02/13/25 11:34 Gabapentin 100 Mg Capsule FEED TUBE 100 mg TID JAYME Administration Glucagon 1 mg 01/30/25 14:22 Glucagon For Inj 1 Mg Vial IM PRN PRN Hypoglycemia Protocol Glucose 15 gm 01/30/25 14:22 Glucose Oral Gel 15 Gm Of Glucse In 37.5 Gm Tube PO PRN PRN Hypoglycemia Protocol Heparin Sodium (Beef Lung) 50 units 01/31/25 09:00 02/13/25 09:06 Heparin Flush 50 Units/5 Ml Syringe IV PUSH 50 units QAM JAYME Administration Heparin Sodium (Beef Lung) 50 units 01/30/25 10:15 02/10/25 21:49 Heparin Flush 50 Units/5 Ml Syringe IV PUSH 50 units PRN PRN Administration after intermittent infusion Heparin Sodium (Beef Lung) 50 units 01/30/25 10:15 02/08/25 04:37 Heparin Flush 50 Units/5 Ml Syringe IV PUSH 50 units PRN PRN Administration after blood draws Heparin Sodium (Porcine) 5,000 units 01/30/25 09:00 02/13/25 09:12 Heparin Sodium 5,000 Units/Ml Vial SUB-Q Not Given Q12HR [facility] Heparin Sodium (Porcine) 500 units 01/30/25 10:15 Heparin Sodium Lock Flush 500 Units/5 Ml Syringe IV PUSH PRN PRN see comments below Hydromorphone HCl 0.5 mg 02/13/25 07:27 02/13/25 13:46 Hydromorphone Hcl Inj (*Crx) 1 Mg/Ml Syr IV PUSH 0.5 mg DAILY PRN Administration Pain Rated 7-10 Albumin Human 50 mls @ 999 mls/hr 01/30/25 05:27 Albutein IVPB 03/01/25 05:26 Q10M PRN HYPOTENSION Dextrose 1,000 mls @ 100 mls/hr 01/30/25 14:22 Dextrose 5% 1,000 Ml IVPB PRN PRN Hypoglycemia Protocol Insulin Aspart 2 - 5 units 02/02/25 08:00 02/13/25 11:47 Insulin Aspart (*Bkc) 100 Units/Ml SUB-Q Not Given TIDWM [facility] Protocol Insulin Aspart 5 units 02/11/25 18:00 02/13/25 05:02 Insulin Aspart (*Bkc) 100 Units/Ml SUB-Q 5 units TID@0000,0600,1800 JAYME Administration Insulin Aspart 5 units 02/11/25 12:32 Insulin Aspart (*Bkc) 100 Units/Ml SUB-Q DAILY@1200 PRN ONLY IF PT EATS LUNCH Insulin Glargine 22 units 02/13/25 09:00 02/13/25 09:13 Insulin Glargine (*Bkc) 100 Units/Ml SUB-Q 22 units DAILY JAYME Administration Isosorbide Dinitrate 20 mg 02/04/25 17:00 02/13/25 11:34 Isosorbide Dinitrate 20 Mg Tablet FEED TUBE 20 mg TID JAYME Administration Losartan Potassium 100 mg 02/11/25 09:00 02/13/25 11:35 Losartan Potassium 100 Mg Tablet FEED TUBE 100 mg DAILY JAYME Administration Miscellaneous Information 1 each 02/02/25 08:57 Pharmacist Communication Order XX 03/04/25 08:56 ONCE JAYME Multi-Ingred Cream/Lotion/Oil/Oint 1 applic 02/08/25 09:00 02/13/25 09:12 Eucerin Cream 120 Gm Jar TOPICAL 1 applic DAILY JAYME Administration Ondansetron HCl 4 mg 01/30/25 18:35 02/09/25 09:15 Ondansetron Inj 4 Mg/2 Ml Vial IV PUSH 4 mg Q4H PRN Administration Nausea And Vomiting Oxycodone/Acetaminophen 1 tablet 02/08/25 07:01 02/10/25 17:36 Oxycodone/Acetaminophen (*Crx) 5-325 Mg Tablet FEED TUBE 1 tablet Q4H PRN Administration Pain Rated 4-6 Pantoprazole Sodium 40 mg 01/30/25 09:00 02/13/25 09:06 Pantoprazole Sodium Iv 40 Mg Vial IV PUSH 40 mg Q12HR JAYME Administration Promethazine HCl 25 mg 02/08/25 18:01 Promethazine Hcl 25 Mg Tablet FEED TUBE Q4H PRN Nausea And Vomiting Sodium Chloride 10 ml 01/30/25 14:00 02/13/25 11:42 Central Line Flush IV PUSH 10 ml Q8HR JAYME Administration Radiology Results: ITS Impressions Chest X-Ray 02/02/25 20:02 IMPRESSION: No acute pulmonary findings. Chest/Abdomen/Pelvis CT 02/05/25 07:39 IMPRESSION: 1. Persistent airspace and groundglass opacities in left lung lower lobe with volume loss, consistent with pneumonia versus atelectasis/scarring. 2. Mild mediastinal, retroperitoneal, and pelvic lymphadenopathy, likely reactive. Labs Labs: Laboratory Results - last 24 hr 02/12/25 02/12/25 02/13/25 16:41 20:19 00:28 Sodium Potassium Chloride Carbon Dioxide Anion Gap BUN Creatinine Estim Creat Clear Calc Estimated GFR Glucose POC Capillary Glucose 310 H 232 H 385 H Calcium Phosphorus Albumin 02/13/25 02/13/25 02/13/25 04:34 04:36 09:11 Sodium 137 Potassium 4.1 Chloride 93 L Carbon Dioxide 32 H Anion Gap 12 BUN 39 H D Creatinine 7.42 H Estim Creat Clear Calc 9 Estimated GFR 6 L Glucose 369 H POC Capillary Glucose 314 H 173 H Calcium 7.7 L Phosphorus 6.2 H Albumin 3.6 02/13/25 02/13/25 11:47 16:14 Sodium Potassium Chloride Carbon Dioxide Anion Gap BUN Creatinine Estim Creat Clear Calc Estimated GFR Glucose POC Capillary Glucose 173 H 293 H Calcium Phosphorus Albumin
[2025-02-13] MEDS: ONDANSETRON INJ 4 MG/2 ML VIAL IV PUSH (17:08)
[2025-02-14 05:14] VITALS: BP 158/91; PULSE 89; RESP 17; TEMP 36.8; O2SAT 99
[2025-02-14] MEDS: CENTRAL LINE FLUSH 10 ML IV PUSH ×3 (05:15→21:14)
[2025-02-14] MEDS: ISOSORBIDE DINITRATE 20 MG TABLET FEED TUBE ×3 (09:18→17:07)
[2025-02-14] MEDS: LOSARTAN POTASSIUM 100 MG TABLET FEED TUBE (09:18)
[2025-02-14] MEDS: INSULIN GLARGINE (*BKC) 100 UNITS/ML 22 UNITS SUB-Q (09:18)
[2025-02-14] MEDS: ESCITALOPRAM OXALATE 10 MG TABLET FEED TUBE (09:18)
[2025-02-14] MEDS: GABAPENTIN 100 MG CAPSULE FEED TUBE ×3 (09:18→17:07)
[2025-02-14] MEDS: diazePAM INJ (*CRX) 10 MG/2 ML SYRINGE 5 MG IV PUSH (09:26)
[2025-02-14] MEDS: INSULIN ASPART (*BKC) 100 UNITS/ML SUB-Q ×2 (12:32→17:07)
[2025-02-14] MEDS: HYDROmorphone HCL INJ (*CRX) 1 MG/ML SYR 0.5 MG IV PUSH ×2 (12:33→17:06)
[2025-02-14 14:00] VITALS: BP 132/72; PULSE 88; RESP 16; TEMP 36.4; O2SAT 97
--- NOTE | 2025-02-14 14:00 | PM.IMPN ---
Progress Note: A&P Assessment and Plan (1) Nausea & vomiting: Qualifiers: Vomiting type: unspecified Qualified Code(s): R11.2 - Nausea with vomiting, unspecified Code(s): R11.2 - Nausea with vomiting, unspecified Status: Acute Assessment and Plan: History of chronic nausea and vomiting with known gastroparesis s/p GJ tube placement and gastric pacemaker Was having persistent abdominal pain requiring frequent dilaudid use but able to wean down. CT C/A/P showing persistent LLL airspace disease and mild adenopathy. The LLL PNA initially noted by CT on 12/23/24 but no prior imaging to review. On tube feeds at night which she tolerates at times Narcotics may be contributing to her nausea as a side effect and slowing her gastric motility. Abd soft with minimal pain and nml BMs; doubt obstructive process. Tolerated TF so GJ tube is functioning. Probably a component of cyclic vomiting syndrome Will stop dilaudid and percocet. Hold off on repeating CT. Continue Zofran and phenergan prn. Change Benadryl to Q8hr 02/14: Pt reporting moderate pain and continued nausea. Pt in acute distress due to both of these things. -Ordered Dilaudid 0.5mg once for break through pain as well as changed Benadryl back to 50mg q6, hopeful these will get her through the night with eventual weaning more / discontinuation tomorrow (2) Type 1 diabetes: Qualifiers: Diabetes mellitus complication status: with hyperglycemia Qualified Code(s): E10.65 - Type 1 diabetes mellitus with hyperglycemia Code(s): E10.9 - Type 1 diabetes mellitus without complications Status: Chronic Assessment and Plan: A1c 8.4 last month. She takes 15 units Lantus at home She gets tube feeds overnight and is on Novolog Q6hr (except at noon which is PRN if she eats). The patient's blood glucose was reviewed on 02/13 Glucose higher this morning (369) since she tolerated TF Continue AccuCheks covering with sliding scale. Hypoglycemia protocol available as needed. Advance Lantus this morning. 02/14: Per pt today, takes 25 units of lantus at home in the AM -FBS today 369 even with no tube feed overnight -Increasing Lantus from 22 to home dose of 25 units of lantus starting tomorrow (3) DKA, type 1: Qualifiers: Diabetes mellitus complication detail: without coma Qualified Code(s): E10.10 - Type 1 diabetes mellitus with ketoacidosis without coma Code(s): E10.10 - Type 1 diabetes mellitus with ketoacidosis without coma Status: Acute Assessment and Plan: DKA on presentation. Her anion gap metabolic acidosis was complicated by history of ESRD Pt was not given given IVF due to ESRD DKA protocol with insulin infusion and Q1H glucose monitoring Anion gap closed and patient was transition to subcutaneous insulin DKA resolved. Follow (4) End stage renal disease on dialysis: Code(s): N18.6 - End stage renal disease; Z99.2 - Dependence on renal dialysis Status: Acute Assessment and Plan: Inpatient dialysis per Nephrology Normally on schedule Tolerated HD today. 02/14: HD planned for (5) SIRS (systemic inflammatory response syndrome): Code(s): R65.10 - Systemic inflammatory response syndrome (SIRS) of non-infectious origin without acute organ dysfunction Status: Acute Assessment and Plan: Findings suggestive of sirs likely from DKA. Procalcitonin level is 2.5 but patient was afebrile with normal WBC count. Abx were held. BCx negative. Urine culture mixed urogenital lupe 25-50 K. MRSA nasal swab negative. CT with findings of left lower lobe pneumonia but this seems more of a chronic finding and not much change since Dec. Probably more likely scarring. Started ceftriaxone and doxycycline 02/05/25 and completed a 5 day course. Continue to monitor off abx. (6) Hypertension: Code(s): I10 - Essential (primary) hypertension Status: Chronic Assessment and Plan: Patient's blood pressure was reviewed on 02/14 On Coreg, amlodipine, isosorbide and Cozaar. Clonidine patch ordered as well Continue to advance medications as needed. Plan DVT prophylaxis -heparin subQ (patient refusing most of the time); SCD added Nutrition -continue Tube Feeds at night as she tolerates Code Status - Full Code Dispostion - explained to patient not much more to offer. She supposedly has been set up with palliative care but [facility] declined the patient referral due to previous unsuccessful attempts to contact patient to admit. -->reports today that she has a palliative care [employer]BI[employer]INE[employer] that is coming out to her house next week to set up care. -->Discharge when pain and nausea better controlled and able tolerate tube feeds Subjective Date/time seen: 02/14/25 1129 Interval history: Upon my visit, pt sleeping and hard to awaken. Pt reports that she did not get any sleep last night and was nauseous so she refused her overnight tube feed. Pt reports moderate pain in her epigastric abd that radiates to her back today. Pt requests a break through pain dose as well as more often benadryl for her pain and nausea. Review of Systems Review of Systems: 12 systems were reviewed with pertinent positives and negatives per HPI. Except as documented in the HPI, all other systems were reviewed and are negative. All systems reviewed & are unremarkable except as noted in HPI and below (HPI) Exam Const: Other: Well-developed well-nourished, mildly ill-appearing HENMT: Other: Mucous membranes are tacky, no oral pharyngeal erythema, fair dentition Eyes: Other: Pupils are equal and reactive, no scleral icterus, positive conjunctival pallor Neck: Other: Palpable thyroid, no lymphadenopathy Resp: Other: Clear to auscultation bilaterally, no increased work of breathing Cardio: Other: Regular rate, regular rhythm, 2+ bilateral radial pedal pulses GI: Other: Mild TTP to epigastric abd, nondistended, G-button in J-tube in place Stimulator device left upper abdomen. Skin: Other: Mild pallor, non jaundice L upper chest port. R upper chest HD catheter in place. Stimulator device left upper abdomen. Neuro: Other: Lethargic, hard to awaken today due to. No localizing neurologic deficits noted during conversation Extrem: Other: Trace edema to all extremities and face Psych: Other: Flat affect, cooperative Objective Data Vital Signs Vital Signs: Vital Signs - 24 hr 02/13/25 20:33 02/14/25 05:14 02/14/25 09:15 Temperature 98.2 F 98.3 F Pulse Rate 93 89 Respiratory Rate 16 17 Blood Pressure 146/78 H 158/91 H Pulse Oximetry 95 99 Oxygen Delivery Room Air Intake/Output Intake/Output: Intake & Output 02/11/25 02/12/25 02/13/25 02/14/25 23:59 23:59 23:59 23:59 Intake Total 085 867 0259 170 Output Total 2000 300 Balance 200 730 -726 -130 Meds/Results Medications: Active Medications Generic Name Dose Route Start Last Admin Trade Name Freq PRN Reason Stop Dose Admin Acetaminophen 650 mg 02/02/25 09:12 02/10/25 12:11 Acetaminophen Elixir 325 Mg/10.15 Ml Udc FEED TUBE 650 mg Q4H PRN Administration Mild Pain (1-5) Or Fever Hydrocodone Bitart/Acetaminophen 1 tab 02/13/25 16:31 Hydrocodone/Acetaminophen (*Crx) 5-325 Mg Tablet FEED TUBE Q6H PRN Pain Rated 6 or Greater Amlodipine Besylate 10 mg 02/02/25 09:00 02/14/25 09:18 Amlodipine Besylate 10 Mg Tablet FEED TUBE 10 mg DAILY JAYME Administration Carvedilol 25 mg 02/10/25 09:00 02/14/25 09:18 Carvedilol 25 Mg Tablet FEED TUBE 25 mg Q12H JAYME Administration Clonidine HCl 1 patch 02/11/25 09:00 02/11/25 12:56 Clonidine 0.1 Mg/24 Hr Patch TRANSDERM 1 patch WEEKLY JAYME Administration Dextrose 12.5 gm 01/30/25 14:22 02/06/25 17:11 Dextrose 50% 25 Gm/50 Ml Syringe IV PUSH 12.5 gm PRN PRN Administration Hypoglycemia Protocol Diazepam 5 mg 01/29/25 22:29 02/14/25 09:26 Diazepam Inj (*Crx) 10 Mg/2 Ml Syringe IV PUSH 5 mg Q6H PRN Administration Intractable nausea vomiting Diphenhydramine HCl 50 mg 02/14/25 11:39 02/14/25 12:34 Diphenhydramine Hcl Inj 50 Mg/Ml Vial IV PUSH 50 mg Q6H PRN Administration Itching Escitalopram Oxalate 10 mg 02/02/25 09:00 02/14/25 09:18 Escitalopram Oxalate 10 Mg Tablet FEED TUBE 10 mg DAILY JAYME Administration Gabapentin 100 mg 02/02/25 09:00 02/14/25 12:33 Gabapentin 100 Mg Capsule FEED TUBE 100 mg TID JAYME Administration Glucagon 1 mg 01/30/25 14:22 Glucagon For Inj 1 Mg Vial IM PRN PRN Hypoglycemia Protocol Glucose 15 gm 01/30/25 14:22 Glucose Oral Gel 15 Gm Of Glucse In 37.5 Gm Tube PO PRN PRN Hypoglycemia Protocol Heparin Sodium (Beef Lung) 50 units 01/31/25 09:00 02/14/25 09:19 Heparin Flush 50 Units/5 Ml Syringe IV PUSH 50 units QAM JAYME Administration Heparin Sodium (Beef Lung) 50 units 01/30/25 10:15 02/10/25 21:49 Heparin Flush 50 Units/5 Ml Syringe IV PUSH 50 units PRN PRN Administration after intermittent infusion Heparin Sodium (Beef Lung) 50 units 01/30/25 10:15 02/08/25 04:37 Heparin Flush 50 Units/5 Ml Syringe IV PUSH 50 units PRN PRN Administration after blood draws Heparin Sodium (Porcine) 5,000 units 01/30/25 09:00 02/14/25 09:10 Heparin Sodium 5,000 Units/Ml Vial SUB-Q Not Given Q12HR JAYME Heparin Sodium (Porcine) 500 units 01/30/25 10:15 Heparin Sodium Lock Flush 500 Units/5 Ml Syringe IV PUSH PRN PRN see comments below Albumin Human 50 mls @ 999 mls/hr 01/30/25 05:27 Albutein IVPB 03/01/25 05:26 Q10M PRN HYPOTENSION Dextrose 1,000 mls @ 100 mls/hr 01/30/25 14:22 Dextrose 5% 1,000 Ml IVPB PRN PRN Hypoglycemia Protocol Insulin Aspart 2 - 5 units 02/02/25 08:00 02/14/25 12:32 Insulin Aspart (*Bkc) 100 Units/Ml SUB-Q 2 units TIDWM JAYME Administration Protocol Insulin Aspart 5 units 02/11/25 18:00 02/14/25 05:16 Insulin Aspart (*Bkc) 100 Units/Ml SUB-Q Not Given TID@0000,0600,1800 [facility] Insulin Aspart 5 units 02/11/25 12:32 Insulin Aspart (*Bkc) 100 Units/Ml SUB-Q DAILY@1200 PRN ONLY IF PT EATS LUNCH Insulin Glargine 22 units 02/13/25 09:00 02/14/25 09:18 Insulin Glargine (*Bkc) 100 Units/Ml SUB-Q 22 units DAILY JAYME Administration Isosorbide Dinitrate 20 mg 02/04/25 17:00 02/14/25 12:33 Isosorbide Dinitrate 20 Mg Tablet FEED TUBE 20 mg TID JAYME Administration Losartan Potassium 100 mg 02/11/25 09:00 02/14/25 09:18 Losartan Potassium 100 Mg Tablet FEED TUBE 100 mg DAILY JAYME Administration Miscellaneous Information 1 each 02/02/25 08:57 Pharmacist Communication Order XX 03/04/25 08:56 ONCE JAYME Multi-Ingred Cream/Lotion/Oil/Oint 1 applic 02/08/25 09:00 02/14/25 09:11 Eucerin Cream 120 Gm Jar TOPICAL Not Given DAILY JAYME Ondansetron HCl 4 mg 01/30/25 18:35 02/13/25 17:08 Ondansetron Inj 4 Mg/2 Ml Vial IV PUSH 4 mg Q4H PRN Administration Nausea And Vomiting Pantoprazole Sodium 40 mg 02/14/25 09:00 02/14/25 09:19 Pantoprazole 40 Mg Tablet PO Not Given QAM JAYME Promethazine HCl 25 mg 02/08/25 18:01 Promethazine Hcl 25 Mg Tablet FEED TUBE Q4H PRN Nausea And Vomiting Sodium Chloride 10 ml 01/30/25 14:00 02/14/25 12:33 Central Line Flush IV PUSH 10 ml Q8HR JAYME Administration Radiology Results: ITS Impressions Chest X-Ray 02/02/25 20:02 IMPRESSION: No acute pulmonary findings. Chest/Abdomen/Pelvis CT 02/05/25 07:39 IMPRESSION: 1. Persistent airspace and groundglass opacities in left lung lower lobe with volume loss, consistent with pneumonia versus atelectasis/scarring. 2. Mild mediastinal, retroperitoneal, and pelvic lymphadenopathy, likely reactive. Labs Labs: Laboratory Results - last 24 hr 02/13/25 02/13/25 02/13/25 16:14 20:31 23:31 POC Capillary Glucose 293 H 204 H 300 H 02/14/25 02/14/25 02/14/25 05:11 07:47 11:33 POC Capillary Glucose 170 H 188 H 217 H Quality VTE Prophylaxis VTE prophylaxis: pharmacologic ordered (Heparin 5000 units subQ q.12 hours.)
--- NOTE | 2025-02-14 14:08 | P.PNNP_ITS ---
Progress Note: A&P Assessment and Plan (1) End stage renal disease: Code(s): N18.6 - End stage renal disease Status: Chronic Assessment and Plan: * HD tomorrow * continue //Wednesday dialysis schedule while hospitalized * follow electrolytes, volume status, and clearance * outpatient dialysis clinic = [facility] in [place] * primary buildings and grounds coordinator = Dr. Odilon Tellez (2) DKA (diabetic ketoacidosis): Qualifiers: Diabetes mellitus complication detail: without coma Diabetes mellitus type: type 1 Qualified Code(s): E10.10 - Type 1 diabetes mellitus with ketoacidosis without coma Code(s): E11.10 - Type 2 diabetes mellitus with ketoacidosis without coma Status: Resolved Assessment and Plan: * resolved * as noted by evaluation in ER * recurrent and multiple ER visits/hospitalizations for this problems (usually gets most of her care at [facility] and more recently at [facility]) * s/p insulin gtt and weaned off * transitioned to SQ insulin (3) Nausea & vomiting: Qualifiers: Vomiting type: unspecified Qualified Code(s): R11.2 - Nausea with vomiting, unspecified Code(s): R11.2 - Nausea with vomiting, unspecified Status: Acute Assessment and Plan: * chronic and long standing issue (per patient and review of records) * cyclic in nature * thought to be secondary to diabetic gastroparesis * narcotics playing a role? * s/p recent G-J-tube placement to ensure adequate/supplemental nutrition given this issue * continue oral intake and supplement tube feeds as needed (4) Hyperkalemia: Code(s): E87.5 - Hyperkalemia Status: Acute Assessment and Plan: * fluctuates - note more so on the two day stretch (from Wednesday -> Wednesday) with regard to dialysis treatments * as noted by admission labs and AM labs on 01/30 * corrected with dialysis * follow trend (5) Diabetic gastroparesis: Code(s): E11.43 - Type 2 diabetes mellitus with diabetic autonomic (poly)neuropathy; K31.84 - Gastroparesis Status: Acute Assessment and Plan: * known and long standing issue * likely precipiting factor for admission symptoms (6) Anemia: Code(s): D64.9 - Anemia, unspecified Status: Chronic Assessment and Plan: * due to ESRD * Epogen with HD * follow trend of H/H (7) Hypertension: Code(s): I10 - Essential (primary) hypertension Status: Chronic Assessment and Plan: * quite elevated on admission * on home medications * titrate losartan, carvedilol, and isosorbide dinitrate as needed * follow trend of hemodynamics (8) Type 1 diabetes: Qualifiers: Diabetes mellitus complication status: with hyperglycemia Qualified Code(s): E10.65 - Type 1 diabetes mellitus with hyperglycemia Code(s): E10.9 - Type 1 diabetes mellitus without complications Status: Chronic Assessment and Plan: * see #1 * follow accu-cheks * on SQ insulin (SSI and Lantus) * glycemic control per hospitalist Will continue to follow. Subjective Date/time seen: 02/14/25 14:08 Interval history: Follow-up for end stage renal disease on hemodialysis. Tolerated dialysis treatment yesterday without any issues or problems; ongoing issues with nausea/vomiting as well as abdominal pain despite multiple interventions to date; resting comfortably when seen. Exam Narrative: General: WD/WN female in NAD Heart: normal S1 and S2; no rub Lungs: decreased at bases Abdomen: soft, nontender, nondistended, positive bowel sounds Extremities: no cyanosis or clubbing; no edema Skin: warm and intact Objective Data Vital Signs Vital Signs: Vital Signs Temp Pulse Resp BP Pulse Ox O2 Del Method 02/14/25 09:15 Room Air 02/14/25 05:14 98.3 F 89 17 158/91 H 99 02/13/25 20:33 98.2 F 93 16 146/78 H 95 Intake/Output Intake/Output: Intake & Output 02/11/25 02/12/25 02/13/25 02/14/25 23:59 23:59 23:59 23:59 Intake Total 335 710 0690 408 Output Total 1999 300 Balance 200 730 -726 108 Meds/Results Medications: Active Medications Generic Name Dose Route Start Last Admin Trade Name Freq PRN Reason Stop Dose Admin Acetaminophen 650 mg 02/02/25 09:12 02/10/25 12:11 Acetaminophen Elixir 325 Mg/10.15 Ml Udc FEED TUBE 650 mg Q4H PRN Administration Mild Pain (1-5) Or Fever Hydrocodone Bitart/Acetaminophen 1 tab 02/13/25 16:31 Hydrocodone/Acetaminophen (*Crx) 5-325 Mg Tablet FEED TUBE Q6H PRN Pain Rated 6 or Greater Amlodipine Besylate 10 mg 02/02/25 09:00 02/14/25 09:18 Amlodipine Besylate 10 Mg Tablet FEED TUBE 10 mg DAILY JAYME Administration Carvedilol 25 mg 02/10/25 09:00 02/14/25 09:18 Carvedilol 25 Mg Tablet FEED TUBE 25 mg Q12H JAYME Administration Clonidine HCl 1 patch 02/11/25 09:00 02/11/25 12:56 Clonidine 0.1 Mg/24 Hr Patch TRANSDERM 1 patch WEEKLY JAYME Administration Dextrose 12.5 gm 01/30/25 14:22 02/06/25 17:11 Dextrose 50% 25 Gm/50 Ml Syringe IV PUSH 12.5 gm PRN PRN Administration Hypoglycemia Protocol Diazepam 5 mg 01/29/25 22:29 02/14/25 09:26 Diazepam Inj (*Crx) 10 Mg/2 Ml Syringe IV PUSH 5 mg Q6H PRN Administration Intractable nausea vomiting Diphenhydramine HCl 50 mg 02/14/25 11:39 02/14/25 12:34 Diphenhydramine Hcl Inj 50 Mg/Ml Vial IV PUSH 50 mg Q6H PRN Administration Itching Escitalopram Oxalate 10 mg 02/02/25 09:00 02/14/25 09:18 Escitalopram Oxalate 10 Mg Tablet FEED TUBE 10 mg DAILY JAYME Administration Gabapentin 100 mg 02/02/25 09:00 02/14/25 12:33 Gabapentin 100 Mg Capsule FEED TUBE 100 mg TID JAYME Administration Glucagon 1 mg 01/30/25 14:22 Glucagon For Inj 1 Mg Vial IM PRN PRN Hypoglycemia Protocol Glucose 15 gm 01/30/25 14:22 Glucose Oral Gel 15 Gm Of Glucse In 37.5 Gm Tube PO PRN PRN Hypoglycemia Protocol Heparin Sodium (Beef Lung) 50 units 01/31/25 09:00 02/14/25 09:19 Heparin Flush 50 Units/5 Ml Syringe IV PUSH 50 units QAM JAYME Administration Heparin Sodium (Beef Lung) 50 units 01/30/25 10:15 02/10/25 21:49 Heparin Flush 50 Units/5 Ml Syringe IV PUSH 50 units PRN PRN Administration after intermittent infusion Heparin Sodium (Beef Lung) 50 units 01/30/25 10:15 02/08/25 04:37 Heparin Flush 50 Units/5 Ml Syringe IV PUSH 50 units PRN PRN Administration after blood draws Heparin Sodium (Porcine) 5,000 units 01/30/25 09:00 02/14/25 09:10 Heparin Sodium 5,000 Units/Ml Vial SUB-Q Not Given Q12HR JAYME Heparin Sodium (Porcine) 500 units 01/30/25 10:15 Heparin Sodium Lock Flush 500 Units/5 Ml Syringe IV PUSH PRN PRN see comments below Albumin Human 50 mls @ 999 mls/hr 01/30/25 05:27 Albutein IVPB 03/01/25 05:26 Q10M PRN HYPOTENSION Dextrose 1,000 mls @ 100 mls/hr 01/30/25 14:22 Dextrose 5% 1,000 Ml IVPB PRN PRN Hypoglycemia Protocol Insulin Aspart 2 - 5 units 02/02/25 08:00 02/14/25 12:32 Insulin Aspart (*Bkc) 100 Units/Ml SUB-Q 2 units TIDWM JAYME Administration Protocol Insulin Aspart 5 units 02/11/25 18:00 02/14/25 05:16 Insulin Aspart (*Bkc) 100 Units/Ml SUB-Q Not Given TID@0000,0600,1800 [facility] Insulin Aspart 5 units 02/11/25 12:32 Insulin Aspart (*Bkc) 100 Units/Ml SUB-Q DAILY@1200 PRN ONLY IF PT EATS LUNCH Insulin Glargine 25 units 02/15/25 08:00 Insulin Glargine (*Bkc) 100 Units/Ml SUB-Q DAILY@0800 JAYME Isosorbide Dinitrate 20 mg 02/04/25 17:00 02/14/25 12:33 Isosorbide Dinitrate 20 Mg Tablet FEED TUBE 20 mg TID JAYME Administration Losartan Potassium 100 mg 02/11/25 09:00 02/14/25 09:18 Losartan Potassium 100 Mg Tablet FEED TUBE 100 mg DAILY JAYME Administration Miscellaneous Information 1 each 02/02/25 08:57 Pharmacist Communication Order XX 03/04/25 08:56 ONCE JAYME Multi-Ingred Cream/Lotion/Oil/Oint 1 applic 02/08/25 09:00 02/14/25 09:11 Eucerin Cream 120 Gm Jar TOPICAL Not Given DAILY JAYME Ondansetron HCl 4 mg 01/30/25 18:35 02/13/25 17:08 Ondansetron Inj 4 Mg/2 Ml Vial IV PUSH 4 mg Q4H PRN Administration Nausea And Vomiting Pantoprazole Sodium 40 mg 02/14/25 09:00 02/14/25 09:19 Pantoprazole 40 Mg Tablet PO Not Given QAM JAYME Promethazine HCl 25 mg 02/08/25 18:01 Promethazine Hcl 25 Mg Tablet FEED TUBE Q4H PRN Nausea And Vomiting Sodium Chloride 10 ml 01/30/25 14:00 02/14/25 12:33 Central Line Flush IV PUSH 10 ml Q8HR JAYME Administration Radiology Results: ITS Impressions Chest X-Ray 02/02/25 20:02 IMPRESSION: No acute pulmonary findings. Chest/Abdomen/Pelvis CT 02/05/25 07:39 IMPRESSION: 1. Persistent airspace and groundglass opacities in left lung lower lobe with volume loss, consistent with pneumonia versus atelectasis/scarring. 2. Mild mediastinal, retroperitoneal, and pelvic lymphadenopathy, likely reactive. Labs Labs: Laboratory Results - last 24 hr 02/13/25 02/13/25 02/13/25 16:14 20:31 23:31 POC Capillary Glucose 293 H 204 H 300 H 02/14/25 02/14/25 02/14/25 05:11 07:47 11:33 POC Capillary Glucose 170 H 188 H 217 H
[2025-02-14] MEDS: INSULIN ASPART (*BKC) 100 UNITS/ML 6 UNITS SUB-Q (17:07)
[2025-02-14 19:58] VITALS: BP 138/68; PULSE 97; RESP 17; TEMP 36.7; O2SAT 98
[2025-02-15] VITALS (20 sets, daily range): BP systolic 133–193; BP diastolic 83–114; PULSE 77–92; RESP 16; TEMP 35.4–37; O2SAT 99–100
[2025-02-15] MEDS: INSULIN ASPART (*BKC) 100 UNITS/ML SUB-Q ×2 (00:05→05:44)
--- NOTE | 2025-02-15 00:16 | PC.NURSE ---
PT blood glucose for 12 am was 554 hospitalist building construction professor notified as this time Jasiel and gave order to give 3 additional units to the scheduled 5u and recheck in a hr this order has been completed and currently awaiting to recheck.
[2025-02-15] MEDS: CENTRAL LINE FLUSH 10 ML IV PUSH ×3 (05:44→22:10)
--- NOTE | 2025-02-15 06:43 | PC.NURSE ---
pt scheduled blood glucose was 308 this am with scheduled 5 units given without difficulty.
[2025-02-15 06:58] LABS: Albumin Level 3.9 g/dL (3.5-5.1); Anion Gap 15 mmol/L (4-12); Blood Urea Nitrogen 45 mg/dL (7-17); Calcium 8.6 mg/dL (8.4-10.2); Carbon Dioxide 24 mmol/L (22-30); Chloride 96 mmol/L (98-107); Estimated CRCL calculation 9 ml/min; Estimated Glomerular Filt Rate 7; Glucose 292 mg/dL (65-110); Potassium 5.1 mmol/L (3.4-5.0); Sodium 135 mmol/L (137-145)
--- NOTE | 2025-02-15 08:15 | PM.IMPN ---
Progress Note: A&P Assessment and Plan (1) Nausea & vomiting: Qualifiers: Vomiting type: unspecified Qualified Code(s): R11.2 - Nausea with vomiting, unspecified Code(s): R11.2 - Nausea with vomiting, unspecified Status: Acute Assessment and Plan: History of chronic nausea and vomiting with known gastroparesis s/p GJ tube placement and gastric pacemaker Was having persistent abdominal pain requiring frequent dilaudid use but able to wean down. CT C/A/P showing persistent LLL airspace disease and mild adenopathy. The LLL PNA initially noted by CT on 12/23/24 but no prior imaging to review. On tube feeds at night which she tolerates at times Narcotics may be contributing to her nausea as a side effect and slowing her gastric motility. Abd soft with minimal pain and nml BMs; doubt obstructive process. Tolerated TF so GJ tube is functioning. Probably a component of cyclic vomiting syndrome Will stop dilaudid and percocet. Hold off on repeating CT. Continue Zofran and phenergan prn. Change Benadryl to Q8hr 02/15: Pt reporting moderate pain and continued nausea. Pt in acute distress due to both of these things. Ordered Dilaudid 0.5mg once for break through pain as well as changed Benadryl back to 50mg q6, hopeful these will get her through the night with eventual weaning more / discontinuation tomorrow (2) Type 1 diabetes: Qualifiers: Diabetes mellitus complication status: with hyperglycemia Qualified Code(s): E10.65 - Type 1 diabetes mellitus with hyperglycemia Code(s): E10.9 - Type 1 diabetes mellitus without complications Status: Chronic Assessment and Plan: A1c 8.4 last month. She takes 15 units Lantus at home She gets tube feeds overnight and is on Novolog Q6hr (except at noon which is PRN if she eats). The patient's blood glucose was reviewed on 02/13 Glucose higher this morning (369) since she tolerated TF Continue AccuCheks covering with sliding scale. Hypoglycemia protocol available as needed. Advance Lantus this morning. Increased Lantus from 22 to home dose of 25 units of lantus starting today (3) DKA, type 1: Qualifiers: Diabetes mellitus complication detail: without coma Qualified Code(s): E10.10 - Type 1 diabetes mellitus with ketoacidosis without coma Code(s): E10.10 - Type 1 diabetes mellitus with ketoacidosis without coma Status: Acute Assessment and Plan: DKA on presentation. Her anion gap metabolic acidosis was complicated by history of ESRD Pt was not given given IVF due to ESRD DKA protocol with insulin infusion and Q1H glucose monitoring Anion gap closed and patient was transition to subcutaneous insulin DKA resolved. Follow (4) End stage renal disease on dialysis: Code(s): N18.6 - End stage renal disease; Z99.2 - Dependence on renal dialysis Status: Acute Assessment and Plan: Inpatient dialysis per Nephrology Normally on schedule Tolerated HD today. 02/15: HD Th (5) SIRS (systemic inflammatory response syndrome): Code(s): R65.10 - Systemic inflammatory response syndrome (SIRS) of non-infectious origin without acute organ dysfunction Status: Acute Assessment and Plan: Findings suggestive of sirs likely from DKA. Procalcitonin level is 2.5 but patient was afebrile with normal WBC count. Abx were held. BCx negative. Urine culture mixed urogenital lupe 25-50 K. MRSA nasal swab negative. CT with findings of left lower lobe pneumonia but this seems more of a chronic finding and not much change since Sept. Probably more likely scarring. Started ceftriaxone and doxycycline 02/05/25 and completed a 5 day course. Continue to monitor off abx. (6) Hypertension: Code(s): I10 - Essential (primary) hypertension Status: Chronic Assessment and Plan: Patient's blood pressure was reviewed on 02/14 On Coreg, amlodipine, isosorbide and Cozaar. Clonidine patch ordered as well Continue to advance medications as needed. Plan DVT prophylaxis -heparin subQ (patient refusing most of the time); SCD added Nutrition -continue Tube Feeds at night as she tolerates Code Status - Full Code Dispostion - explained to patient not much more to offer. She supposedly has been set up with palliative care but [facility] declined the patient referral due to previous unsuccessful attempts to contact patient to admit. -->reports today that she has a palliative care [employer] CLERK that is coming out to her house next week to set up care. -->Discharge when pain and nausea better controlled and able tolerate tube feeds Subjective Date/time seen: 02/15/25 08:15 Interval history: Patient observed and examined after dialysis this morning. Patient endorsing significant nausea and epigastric abdominal discomfort. She is requesting a breakthrough IV Dilaudid dose for pain. Discussed with her the need to replace port catheter tip - she continues to decline wanting this replaced. She denies any chest pain, shortness of breath at this time. Review of Systems Review of Systems: 12 systems were reviewed with pertinent positives and negatives per HPI. Except as documented in the HPI, all other systems were reviewed and are negative. All systems reviewed & are unremarkable except as noted in HPI and below (HPI) Exam Narrative: AF 98.5 164/81 87 14 98% ra Gen - NARD Chest - left upper chest port. Right upper chest HD catheter in place. CTA bilaterally. CV - RRR S1/S2 Abd - soft, +BS. G/J tube in place. Nontender. Stimulator device left upper abdomen. Ext - no pedal edema. Psych -depressed mood Skin -warm and dry Const: Other: Well-developed well-nourished, mildly ill-appearing HENMT: Other: Mucous membranes are tacky, no oral pharyngeal erythema, fair dentition Eyes: Other: Pupils are equal and reactive, no scleral icterus, positive conjunctival pallor Neck: Other: Palpable thyroid, no lymphadenopathy Resp: Other: Clear to auscultation bilaterally, no increased work of breathing Cardio: Other: Regular rate, regular rhythm, 2+ bilateral radial pedal pulses GI: Other: Mild TTP to epigastric abd, nondistended, G-button in J-tube in place Stimulator device left upper abdomen. Skin: Other: Mild pallor, non jaundice L upper chest port. R upper chest HD catheter in place. Stimulator device left upper abdomen. Neuro: Other: Lethargic, hard to awaken today due to. No localizing neurologic deficits noted during conversation Extrem: Other: Trace edema to all extremities and face Psych: Other: Flat affect, cooperative Objective Data Vital Signs Vital Signs: Vital Signs - 24 hr 02/14/25 09:15 02/14/25 14:00 02/14/25 19:58 Temperature 97.6 F 98.1 F Pulse Rate 88 97 Respiratory Rate 16 17 Blood Pressure 132/72 138/68 Pulse Oximetry 97 98 Oxygen Delivery Room Air 02/15/25 04:28 Temperature 97.9 F Pulse Rate 77 Respiratory Rate 16 Blood Pressure 150/83 H Pulse Oximetry 99 Oxygen Delivery Intake/Output Intake/Output: Intake & Output 02/12/25 02/13/25 02/14/25 02/15/25 23:59 23:59 23:59 23:59 Intake Total 730 1274 1018 250 Output Total 2000 300 Balance 730 -726 718 250 Meds/Results Medications: Active Medications Generic Name Dose Route Start Last Admin Trade Name Freq PRN Reason Stop Dose Admin Acetaminophen 650 mg 02/02/25 09:12 02/10/25 12:11 Acetaminophen Elixir 325 Mg/10.15 Ml Udc FEED TUBE 650 mg Q4H PRN Administration Mild Pain (1-5) Or Fever Hydrocodone Bitart/Acetaminophen 1 tab 02/13/25 16:31 Hydrocodone/Acetaminophen (*Crx) 5-325 Mg Tablet FEED TUBE Q6H PRN Pain Rated 6 or Greater Amlodipine Besylate 10 mg 02/02/25 09:00 02/14/25 09:18 Amlodipine Besylate 10 Mg Tablet FEED TUBE 10 mg DAILY JAYME Administration Carvedilol 25 mg 02/10/25 09:00 02/14/25 09:18 Carvedilol 25 Mg Tablet FEED TUBE 25 mg Q12H JAYME Administration Clonidine HCl 1 patch 02/11/25 09:00 02/11/25 12:56 Clonidine 0.1 Mg/24 Hr Patch TRANSDERM 1 patch WEEKLY JAYME Administration Dextrose 12.5 gm 01/30/25 14:22 02/06/25 17:11 Dextrose 50% 25 Gm/50 Ml Syringe IV PUSH 12.5 gm PRN PRN Administration Hypoglycemia Protocol Diazepam 5 mg 01/29/25 22:29 02/14/25 09:26 Diazepam Inj (*Crx) 10 Mg/2 Ml Syringe IV PUSH 5 mg Q6H PRN Administration Intractable nausea vomiting Diphenhydramine HCl 50 mg 02/14/25 11:39 02/15/25 05:44 Diphenhydramine Hcl Inj 50 Mg/Ml Vial IV PUSH 50 mg Q6H PRN Administration Itching Escitalopram Oxalate 10 mg 02/02/25 09:00 02/14/25 09:18 Escitalopram Oxalate 10 Mg Tablet FEED TUBE 10 mg DAILY JAYME Administration Gabapentin 100 mg 02/02/25 09:00 02/14/25 17:07 Gabapentin 100 Mg Capsule FEED TUBE 100 mg TID JAYME Administration Glucagon 1 mg 01/30/25 14:22 Glucagon For Inj 1 Mg Vial IM PRN PRN Hypoglycemia Protocol Glucose 15 gm 01/30/25 14:22 Glucose Oral Gel 15 Gm Of Glucse In 37.5 Gm Tube PO PRN PRN Hypoglycemia Protocol Heparin Sodium (Beef Lung) 50 units 01/31/25 09:00 02/14/25 09:19 Heparin Flush 50 Units/5 Ml Syringe IV PUSH 50 units QAM JAYME Administration Heparin Sodium (Beef Lung) 50 units 01/30/25 10:15 02/10/25 21:49 Heparin Flush 50 Units/5 Ml Syringe IV PUSH 50 units PRN PRN Administration after intermittent infusion Heparin Sodium (Beef Lung) 50 units 01/30/25 10:15 02/08/25 04:37 Heparin Flush 50 Units/5 Ml Syringe IV PUSH 50 units PRN PRN Administration after blood draws Heparin Sodium (Porcine) 5,000 units 01/30/25 09:00 02/14/25 20:40 Heparin Sodium 5,000 Units/Ml Vial SUB-Q Not Given Q12HR [facility] Heparin Sodium (Porcine) 500 units 01/30/25 10:15 Heparin Sodium Lock Flush 500 Units/5 Ml Syringe IV PUSH PRN PRN see comments below Albumin Human 50 mls @ 999 mls/hr 01/30/25 05:27 Albutein IVPB 03/01/25 05:26 Q10M PRN HYPOTENSION Dextrose 1,000 mls @ 100 mls/hr 01/30/25 14:22 Dextrose 5% 1,000 Ml IVPB PRN PRN Hypoglycemia Protocol Insulin Aspart 2 - 5 units 02/02/25 08:00 02/14/25 16:54 Insulin Aspart (*Bkc) 100 Units/Ml SUB-Q Not Given TIDWM [facility] Protocol Insulin Aspart 5 units 02/11/25 18:00 02/15/25 05:44 Insulin Aspart (*Bkc) 100 Units/Ml SUB-Q 5 units TID@0000,0600,1800 [facility] Administration Insulin Aspart 5 units 02/11/25 12:32 Insulin Aspart (*Bkc) 100 Units/Ml SUB-Q DAILY@1200 PRN ONLY IF PT EATS LUNCH Insulin Glargine 25 units 02/15/25 08:00 Insulin Glargine (*Bkc) 100 Units/Ml SUB-Q DAILY@0800 [facility] Isosorbide Dinitrate 20 mg 02/04/25 17:00 02/14/25 17:07 Isosorbide Dinitrate 20 Mg Tablet FEED TUBE 20 mg TID JYAME Administration Losartan Potassium 100 mg 02/11/25 09:00 02/14/25 09:18 Losartan Potassium 100 Mg Tablet FEED TUBE 100 mg DAILY JAYME Administration Miscellaneous Information 1 each 02/02/25 08:57 Pharmacist Communication Order XX 03/04/25 08:56 ONCE JAYME Multi-Ingred Cream/Lotion/Oil/Oint 1 applic 02/08/25 09:00 02/14/25 09:11 Eucerin Cream 120 Gm Jar TOPICAL Not Given DAILY [facility] Ondansetron HCl 4 mg 01/30/25 18:35 02/13/25 17:08 Ondansetron Inj 4 Mg/2 Ml Vial IV PUSH 4 mg Q4H PRN Administration Nausea And Vomiting Pantoprazole Sodium 40 mg 02/14/25 09:00 02/14/25 09:19 Pantoprazole 40 Mg Tablet PO Not Given QAM [facility] Promethazine HCl 25 mg 02/08/25 18:01 Promethazine Hcl 25 Mg Tablet FEED TUBE Q4H PRN Nausea And Vomiting Sodium Chloride 10 ml 01/30/25 14:00 02/15/25 05:44 Central Line Flush IV PUSH 10 ml Q8HR JAYME Administration Radiology Results: ITS Impressions Chest X-Ray 02/02/25 20:02 IMPRESSION: No acute pulmonary findings. Chest/Abdomen/Pelvis CT 02/05/25 07:39 IMPRESSION: 1. Persistent airspace and groundglass opacities in left lung lower lobe with volume loss, consistent with pneumonia versus atelectasis/scarring. 2. Mild mediastinal, retroperitoneal, and pelvic lymphadenopathy, likely reactive. Labs Labs: Laboratory Results - last 24 hr 02/14/25 02/14/25 02/14/25 11:33 16:47 19:54 Sodium Potassium Chloride Carbon Dioxide Anion Gap BUN Creatinine Estim Creat Clear Calc Estimated GFR Glucose POC Capillary Glucose 217 H 459 H 367 H Calcium Phosphorus Albumin 02/14/25 02/15/25 02/15/25 23:41 01:09 03:41 Sodium Potassium Chloride Carbon Dioxide Anion Gap BUN Creatinine Estim Creat Clear Calc Estimated GFR Glucose POC Capillary Glucose > 500 H* > 500 H* 342 H Calcium Phosphorus Albumin 10/30/25 10/30/25 05:42 06:34 Sodium 135 L Potassium 5.1 H Chloride 96 L Carbon Dioxide 24 Anion Gap 15 H BUN 45 H Creatinine 7.32 H Estim Creat Clear Calc 9 Estimated GFR 7 L Glucose 292 H POC Capillary Glucose 308 H Calcium 8.6 Phosphorus 5.1 H Albumin 3.9 Quality VTE Prophylaxis VTE prophylaxis: pharmacologic ordered (Heparin 5000 units subQ q.12 hours.)
[2025-02-15] MEDS: INSULIN GLARGINE (*BKC) 100 UNITS/ML 25 UNITS SUB-Q (08:23)
--- NOTE | 2025-02-15 11:06 | P.PNNP_ITS ---
Progress Note: A&P Assessment and Plan (1) End stage renal disease: Code(s): N18.6 - End stage renal disease Status: Chronic Assessment and Plan: * HD today * continue //Wednesday dialysis schedule while hospitalized * follow electrolytes, volume status, and clearance * outpatient dialysis clinic = [facility] in [place] * primary forest officer = Dr. Odilon Tellez (2) DKA (diabetic ketoacidosis): Qualifiers: Diabetes mellitus complication detail: without coma Diabetes mellitus type: type 1 Qualified Code(s): E10.10 - Type 1 diabetes mellitus with ketoacidosis without coma Code(s): E11.10 - Type 2 diabetes mellitus with ketoacidosis without coma Status: Resolved Assessment and Plan: * resolved * as noted by evaluation in ER * recurrent and multiple ER visits/hospitalizations for this problems (usually gets most of her care at [facility] and more recently at [facility]) * s/p insulin gtt and weaned off * transitioned to SQ insulin (3) Nausea & vomiting: Qualifiers: Vomiting type: unspecified Qualified Code(s): R11.2 - Nausea with vomiting, unspecified Code(s): R11.2 - Nausea with vomiting, unspecified Status: Acute Assessment and Plan: * chronic and long standing issue (per patient and review of records) * cyclic in nature * thought to be secondary to diabetic gastroparesis * narcotics playing a role? * s/p recent G-J-tube placement to ensure adequate/supplemental nutrition given this issue * continue oral intake and supplement tube feeds as needed (4) Hyperkalemia: Code(s): E87.5 - Hyperkalemia Status: Acute Assessment and Plan: * fluctuates * as noted by admission labs and AM labs on 01/30 * corrects with dialysis * follow trend (5) Diabetic gastroparesis: Code(s): E11.43 - Type 2 diabetes mellitus with diabetic autonomic (poly)neuropathy; K31.84 - Gastroparesis Status: Acute Assessment and Plan: * known and long standing issue * likely precipiting factor for admission symptoms (6) Anemia: Code(s): D64.9 - Anemia, unspecified Status: Chronic Assessment and Plan: * due to ESRD * Epogen with HD * follow trend of H/H (7) Hypertension: Code(s): I10 - Essential (primary) hypertension Status: Chronic Assessment and Plan: * quite elevated on admission * on home medications * titrate losartan, carvedilol, and isosorbide dinitrate as needed * follow trend of hemodynamics (8) Type 1 diabetes: Qualifiers: Diabetes mellitus complication status: with hyperglycemia Qualified Code(s): E10.65 - Type 1 diabetes mellitus with hyperglycemia Code(s): E10.9 - Type 1 diabetes mellitus without complications Status: Chronic Assessment and Plan: * see #2 * follow accu-cheks * on SQ insulin (SSI and Lantus) * glycemic control per hospitalist Will continue to follow. L Subjective Date/time seen: 02/15/25 11:06 Interval history: Follow-up for end stage renal disease on hemodialysis. Tolerating dialysis treatment at the time of my visit (seen on HD at 10:55am); resting comfortable when seen with no apparent distress noted; erratic blood sugars noted overnight as well. Exam 2 Narrative: General: WD/WN female in NAD Heart: normal S1 and S2; no rub Lungs: decreased at bases Abdomen: soft, nontender, nondistended, positive bowel sounds Extremities: no cyanosis or clubbing; no edema Skin: no rash Objective Data Vital Signs Vital Signs: Vital Signs Temp Pulse Resp BP Pulse Ox O2 Del Method 02/15/25 11:00 85 157/98 H 02/15/25 10:45 83 157/103 H 02/15/25 10:30 85 174/102 H 02/15/25 10:15 88 185/108 H 02/15/25 10:00 92 193/114 H 02/15/25 09:37 90 185/110 H 02/15/25 09:25 98.6 F 92 16 185/112 H 100 02/15/25 08:25 Room Air 02/15/25 04:28 97.9 F 77 16 150/83 H 99 02/14/25 19:58 98.1 F 97 17 138/68 98 02/14/25 14:00 97.6 F 88 16 132/72 97 Intake/Output Intake/Output: Intake & Output 02/12/25 02/13/25 02/14/25 02/15/25 23:59 23:59 23:59 23:59 Intake Total 730 1274 1018 910 Output Total 2000 300 2000 Balance 730 -159 210 -1097 Meds/Results Medications: Active Medications Generic Name Dose Route Start Last Admin Trade Name Freq PRN Reason Stop Dose Admin Acetaminophen 650 mg 02/02/25 09:12 02/10/25 12:11 Acetaminophen Elixir 325 Mg/10.15 Ml Udc FEED TUBE 650 mg Q4H PRN Administration Mild Pain (1-5) Or Fever Hydrocodone Bitart/Acetaminophen 1 tab 02/13/25 16:31 Hydrocodone/Acetaminophen (*Crx) 5-325 Mg Tablet FEED TUBE Q6H PRN Pain Rated 6 or Greater Amlodipine Besylate 10 mg 02/02/25 09:00 02/15/25 13:13 Amlodipine Besylate 10 Mg Tablet FEED TUBE 10 mg DAILY JAYME Administration Carvedilol 25 mg 02/10/25 09:00 02/15/25 13:12 Carvedilol 25 Mg Tablet FEED TUBE 25 mg Q12H JAYME Administration Clonidine HCl 1 patch 02/11/25 09:00 02/11/25 12:56 Clonidine 0.1 Mg/24 Hr Patch TRANSDERM 1 patch WEEKLY JAYME Administration Dextrose 12.5 gm 01/30/25 14:22 02/06/25 17:11 Dextrose 50% 25 Gm/50 Ml Syringe IV PUSH 12.5 gm PRN PRN Administration Hypoglycemia Protocol Diazepam 5 mg 01/29/25 22:29 02/14/25 09:26 Diazepam Inj (*Crx) 10 Mg/2 Ml Syringe IV PUSH 5 mg Q6H PRN Administration Intractable nausea vomiting Diphenhydramine HCl 50 mg 02/14/25 11:39 02/15/25 13:12 Diphenhydramine Hcl Inj 50 Mg/Ml Vial IV PUSH 50 mg Q6H PRN Administration Itching Escitalopram Oxalate 10 mg 02/02/25 09:00 02/15/25 13:12 Escitalopram Oxalate 10 Mg Tablet FEED TUBE 10 mg DAILY JAYME Administration Gabapentin 100 mg 02/02/25 09:00 02/15/25 13:13 Gabapentin 100 Mg Capsule FEED TUBE 100 mg TID JAYME Administration Glucagon 1 mg 01/30/25 14:22 Glucagon For Inj 1 Mg Vial IM PRN PRN Hypoglycemia Protocol Glucose 15 gm 01/30/25 14:22 Glucose Oral Gel 15 Gm Of Glucse In 37.5 Gm Tube PO PRN PRN Hypoglycemia Protocol Heparin Sodium (Beef Lung) 50 units 01/31/25 09:00 02/15/25 08:23 Heparin Flush 50 Units/5 Ml Syringe IV PUSH 50 units QAM JAYME Administration Heparin Sodium (Beef Lung) 50 units 01/30/25 10:15 02/10/25 21:49 Heparin Flush 50 Units/5 Ml Syringe IV PUSH 50 units PRN PRN Administration after intermittent infusion Heparin Sodium (Beef Lung) 50 units 01/30/25 10:15 02/08/25 04:37 Heparin Flush 50 Units/5 Ml Syringe IV PUSH 50 units PRN PRN Administration after blood draws Heparin Sodium (Porcine) 5,000 units 01/30/25 09:00 02/15/25 08:20 Heparin Sodium 5,000 Units/Ml Vial SUB-Q Not Given Q12HR JAYME Heparin Sodium (Porcine) 500 units 01/30/25 10:15 Heparin Sodium Lock Flush 500 Units/5 Ml Syringe IV PUSH PRN PRN see comments below Albumin Human 50 mls @ 999 mls/hr 01/30/25 05:27 Albutein IVPB 03/01/25 05:26 Q10M PRN HYPOTENSION Dextrose 1,000 mls @ 100 mls/hr 01/30/25 14:22 Dextrose 5% 1,000 Ml IVPB PRN PRN Hypoglycemia Protocol Insulin Aspart 2 - 5 units 02/02/25 08:00 02/15/25 13:16 Insulin Aspart (*Bkc) 100 Units/Ml SUB-Q Not Given TIDWM JAYME Protocol Insulin Aspart 5 units 02/11/25 18:00 02/15/25 05:44 Insulin Aspart (*Bkc) 100 Units/Ml SUB-Q 5 units TID@0000,0600,1800 JAYME Administration Insulin Aspart 5 units 02/11/25 12:32 Insulin Aspart (*Bkc) 100 Units/Ml SUB-Q DAILY@1200 PRN ONLY IF PT EATS LUNCH Insulin Glargine 25 units 02/15/25 08:00 02/15/25 08:23 Insulin Glargine (*Bkc) 100 Units/Ml SUB-Q 25 units DAILY@0800 JAYME Administration Isosorbide Dinitrate 20 mg 02/04/25 17:00 02/15/25 13:12 Isosorbide Dinitrate 20 Mg Tablet FEED TUBE 20 mg TID JAYME Administration Losartan Potassium 100 mg 02/11/25 09:00 02/15/25 13:12 Losartan Potassium 100 Mg Tablet FEED TUBE 100 mg DAILY JAYME Administration Miscellaneous Information 1 each 02/02/25 08:57 Pharmacist Communication Order XX 03/04/25 08:56 ONCE JAYME Multi-Ingred Cream/Lotion/Oil/Oint 1 applic 02/08/25 09:00 02/15/25 08:20 Eucerin Cream 120 Gm Jar TOPICAL Not Given DAILY JAYME Ondansetron HCl 4 mg 01/30/25 18:35 02/13/25 17:08 Ondansetron Inj 4 Mg/2 Ml Vial IV PUSH 4 mg Q4H PRN Administration Nausea And Vomiting Pantoprazole Sodium 40 mg 02/14/25 09:00 02/15/25 08:22 Pantoprazole 40 Mg Tablet PO Not Given QAM JAYME Promethazine HCl 25 mg 02/08/25 18:01 Promethazine Hcl 25 Mg Tablet FEED TUBE Q4H PRN Nausea And Vomiting Sodium Chloride 10 ml 01/30/25 14:00 02/15/25 13:15 Central Line Flush IV PUSH 10 ml Q8HR JAYME Administration Radiology Results: ITS Impressions Chest X-Ray 02/02/25 20:02 IMPRESSION: No acute pulmonary findings. Chest/Abdomen/Pelvis CT 02/05/25 07:39 IMPRESSION: 1. Persistent airspace and groundglass opacities in left lung lower lobe with volume loss, consistent with pneumonia versus atelectasis/scarring. 2. Mild mediastinal, retroperitoneal, and pelvic lymphadenopathy, likely reactive. Labs Labs: Laboratory Tests 02/12/25 04:50 02/15/25 06:34 Calcium 8.6 Phosphorus 5.1 H Albumin 3.9
[2025-02-15] MEDS: ESCITALOPRAM OXALATE 10 MG TABLET FEED TUBE (13:12)
[2025-02-15] MEDS: ISOSORBIDE DINITRATE 20 MG TABLET FEED TUBE (13:12)
[2025-02-15] MEDS: LOSARTAN POTASSIUM 100 MG TABLET FEED TUBE (13:12)
[2025-02-15] MEDS: GABAPENTIN 100 MG CAPSULE FEED TUBE (13:13)
[2025-02-15] MEDS: DEXTROSE 50% 25 GM/50 ML SYRINGE IV PUSH (13:20)
[2025-02-15] MEDS: HYDROmorphone HCL INJ (*CRX) 1 MG/ML SYR 0.5 MG IV PUSH (14:57)
[2025-02-15] MEDS: diazePAM INJ (*CRX) 10 MG/2 ML SYRINGE 5 MG IV PUSH (17:22)
[2025-02-15] MEDS: HYDROcodone/acetaminophen (*CRX) 5-325 MG TABLET 1 TAB FEED TUBE (21:30)
[2025-02-16] MEDS: INSULIN ASPART (*BKC) 100 UNITS/ML SUB-Q ×5 (00:10→20:45)
[2025-02-16] MEDS: HYDROmorphone HCL INJ (*CRX) 1 MG/ML SYR 0.2 MG IV PUSH (00:23)
[2025-02-16 04:17] VITALS: BP 138/80; PULSE 81; RESP 16; TEMP 36.5; O2SAT 100
[2025-02-16 05:20] LABS: Hematocrit 37.9 % (37.0-47.0); Hemoglobin 11.6 g/dL (12.0-15.0); Immature Granulocyte Percent A 0.2 % (0-0.5); Lymphocytes Absolute Auto 1.82 K/mm3 (0.9-3.2); Mean Corpuscular HGB Conc 30.6 g/dl (32-36); Mean Corpuscular Hemoglobin 29.2 pg (26-34); Mean Corpuscular Volume 95.5 fl (80-100); Nucleated Red Blood Cells Absolute Auto 0.000 K/mm3 (0.0-0.012); Nucleated Red Blood Cells Perc 0.0 % (0.0-0.2); Platelet Count Result 340 k/mm3 (150-375); Red Blood Count 3.97 M/mm3 (4.2-5.4); White Blood Count 5.4 K/mm3 (4.5-10.0)
[2025-02-16 05:44] LABS: Alanine Aminotransferase 38 U/L (6-35); Albumin Level 4.0 g/dL (3.5-5.1); Alkaline Phosphatase 231 U/L (38-126); Anion Gap 11 mmol/L (4-12); Aspartate Amino Transferase 42 U/L (14-36); Bilirubin,Total 0.3 mg/dL (0.2-1.3); Blood Urea Nitrogen 29 mg/dL (7-17); Calcium 8.9 mg/dL (8.4-10.2); Carbon Dioxide 25 mmol/L (22-30); Chloride 100 mmol/L (98-107); Estimated CRCL calculation 13 ml/min; Estimated Glomerular Filt Rate 10; Glucose 233 mg/dL (65-110); Potassium 4.9 mmol/L (3.4-5.0); Sodium 136 mmol/L (137-145); Total Protein 7.4 g/dL (6.3-8.2)
--- NOTE | 2025-02-16 06:11 | PC.NURSE ---
Notified Yumi Silva regarding pts BS 205 @0600. Advised to hold 0600 order of 5U Novolog.
[2025-02-16] MEDS: CENTRAL LINE FLUSH 10 ML IV PUSH ×3 (06:14→20:40)
--- NOTE | 2025-02-16 07:17 | PM.IMPN ---
Progress Note: A&P Assessment and Plan (1) Nausea & vomiting: Qualifiers: Vomiting type: unspecified Qualified Code(s): R11.2 - Nausea with vomiting, unspecified Code(s): R11.2 - Nausea with vomiting, unspecified Status: Acute Assessment and Plan: History of chronic nausea and vomiting with known gastroparesis s/p GJ tube placement and gastric pacemaker Was having persistent abdominal pain requiring frequent dilaudid use but able to wean down. CT C/A/P showing persistent LLL airspace disease and mild adenopathy. The LLL PNA initially noted by CT on 12/23/24 but no prior imaging to review. On tube feeds at night which she tolerates at times Narcotics may be contributing to her nausea as a side effect and slowing her gastric motility. Abd soft with minimal pain and nml BMs; doubt obstructive process. Tolerated TF so GJ tube is functioning. Probably a component of cyclic vomiting syndrome Will stop dilaudid and percocet. Hold off on repeating CT. Continue Zofran and phenergan prn. Change Benadryl to Q8hr 02/15: Pt reporting moderate pain and continued nausea. Pt in acute distress due to both of these things. Ordered Dilaudid 0.5mg once for break through pain as well as changed Benadryl back to 50mg q6, hopeful these will get her through the night with eventual weaning more / discontinuation tomorrow (2) Type 1 diabetes: Qualifiers: Diabetes mellitus complication status: with hyperglycemia Qualified Code(s): E10.65 - Type 1 diabetes mellitus with hyperglycemia Code(s): E10.9 - Type 1 diabetes mellitus without complications Status: Chronic Assessment and Plan: A1c 8.4 last month. She takes 15 units Lantus at home She gets tube feeds overnight and is on Novolog Q6hr (except at noon which is PRN if she eats). The patient's blood glucose was reviewed on 02/13 Glucose higher this morning (369) since she tolerated TF Continue AccuCheks covering with sliding scale. Hypoglycemia protocol available as needed. Advance Lantus this morning. Increased Lantus from 22 to home dose of 25 units of lantus starting today (3) DKA, type 1: Qualifiers: Diabetes mellitus complication detail: without coma Qualified Code(s): E10.10 - Type 1 diabetes mellitus with ketoacidosis without coma Code(s): E10.10 - Type 1 diabetes mellitus with ketoacidosis without coma Status: Acute Assessment and Plan: DKA on presentation. Her anion gap metabolic acidosis was complicated by history of ESRD Pt was not given given IVF due to ESRD DKA protocol with insulin infusion and Q1H glucose monitoring Anion gap closed and patient was transition to subcutaneous insulin DKA resolved. Follow (4) End stage renal disease on dialysis: Code(s): N18.6 - End stage renal disease; Z99.2 - Dependence on renal dialysis Status: Acute Assessment and Plan: Inpatient dialysis per Nephrology Normally on schedule Tolerated HD today. 02/15: HD Th (5) SIRS (systemic inflammatory response syndrome): Code(s): R65.10 - Systemic inflammatory response syndrome (SIRS) of non-infectious origin without acute organ dysfunction Status: Acute Assessment and Plan: Findings suggestive of sirs likely from DKA. Procalcitonin level is 2.5 but patient was afebrile with normal WBC count. Abx were held. BCx negative. Urine culture mixed urogenital lupe 25-50 K. MRSA nasal swab negative. CT with findings of left lower lobe pneumonia but this seems more of a chronic finding and not much change since Sept. Probably more likely scarring. Started ceftriaxone and doxycycline 02/05/25 and completed a 5 day course. Continue to monitor off abx. (6) Hypertension: Code(s): I10 - Essential (primary) hypertension Status: Chronic Assessment and Plan: Patient's blood pressure was reviewed on 02/14 On Coreg, amlodipine, isosorbide and Cozaar. Clonidine patch ordered as well Continue to advance medications as needed. Plan DVT prophylaxis -heparin subQ (patient refusing most of the time); SCD added Nutrition -continue Tube Feeds at night as she tolerates Code Status - Full Code Dispostion - explained to patient not much more to offer. She supposedly has been set up with palliative care but [facility] declined the patient referral due to previous unsuccessful attempts to contact patient to admit. -->reports today that she has a palliative care SURGICAL RESIDENT that is coming out to her house next week to set up care. -->Discharge when pain and nausea better controlled and able tolerate tube feeds Subjective Date/time seen: 02/16/25 07:17 Review of Systems Review of Systems: 12 systems were reviewed with pertinent positives and negatives per HPI. Except as documented in the HPI, all other systems were reviewed and are negative. All systems reviewed & are unremarkable except as noted in HPI and below (HPI) Exam Narrative: AF 98.5 164/81 87 14 98% ra Gen - NARD Chest - left upper chest port. Right upper chest HD catheter in place. CTA bilaterally. CV - RRR S1/S2 Abd - soft, +BS. G/J tube in place. Nontender. Stimulator device left upper abdomen. Ext - no pedal edema. Psych -depressed mood Skin -warm and dry Const: Other: Well-developed well-nourished, mildly ill-appearing HENMT: Other: Mucous membranes are tacky, no oral pharyngeal erythema, fair dentition Eyes: Other: Pupils are equal and reactive, no scleral icterus, positive conjunctival pallor Neck: Other: Palpable thyroid, no lymphadenopathy Resp: Other: Clear to auscultation bilaterally, no increased work of breathing Cardio: Other: Regular rate, regular rhythm, 2+ bilateral radial pedal pulses GI: Other: Mild TTP to epigastric abd, nondistended, G-button in J-tube in place Stimulator device left upper abdomen. Skin: Other: Mild pallor, non jaundice L upper chest port. R upper chest HD catheter in place. Stimulator device left upper abdomen. Neuro: Other: Lethargic, hard to awaken today due to. No localizing neurologic deficits noted during conversation Extrem: Other: Trace edema to all extremities and face Psych: Other: Flat affect, cooperative Objective Data Vital Signs Vital Signs: Vital Signs - 24 hr 02/15/25 08:25 02/15/25 09:25 02/15/25 09:37 Temperature 98.6 F Pulse Rate 92 90 Respiratory Rate 16 Blood Pressure 185/112 H 185/110 H Pulse Oximetry 100 Oxygen Delivery Room Air Fraction of Inspired Oxygen 02/15/25 10:00 02/15/25 10:15 02/15/25 10:30 Temperature Pulse Rate 92 88 85 Respiratory Rate Blood Pressure 193/114 H 185/108 H 174/102 H Pulse Oximetry Oxygen Delivery Fraction of Inspired Oxygen 02/15/25 10:45 02/15/25 11:00 02/15/25 11:15 Temperature Pulse Rate 83 85 84 Respiratory Rate Blood Pressure 157/103 H 157/98 H 144/92 H Pulse Oximetry Oxygen Delivery Fraction of Inspired Oxygen 10/30/25 11:30 02/15/25 11:45 02/15/25 12:00 Temperature Pulse Rate 85 87 85 Respiratory Rate Blood Pressure 133/95 H 141/96 H 150/97 H Pulse Oximetry Oxygen Delivery Fraction of Inspired Oxygen 02/15/25 12:15 02/15/25 12:30 02/15/25 12:39 Temperature Pulse Rate 84 85 85 Respiratory Rate Blood Pressure 155/104 H 142/91 H 150/100 H Pulse Oximetry Oxygen Delivery Fraction of Inspired Oxygen 02/15/25 12:49 02/15/25 13:12 02/15/25 14:00 Temperature 97.7 F 97 F L Pulse Rate 92 92 83 Respiratory Rate 16 16 Blood Pressure 156/95 H 142/84 H Pulse Oximetry 100 100 Oxygen Delivery Fraction of Inspired Oxygen 02/15/25 20:00 02/15/25 21:03 02/15/25 21:43 Temperature 97.7 F Pulse Rate 82 83 Respiratory Rate 16 Blood Pressure 142/84 H Pulse Oximetry 100 100 Oxygen Delivery Room Air Room Air Fraction of Inspired Oxygen 02/16/25 04:17 Temperature 97.7 F Pulse Rate 81 Respiratory Rate 16 Blood Pressure 138/80 Pulse Oximetry 100 Oxygen Delivery Fraction of Inspired Oxygen Intake/Output Intake/Output: Intake & Output 02/13/25 02/14/25 02/15/25 02/16/25 23:59 23:59 23:59 23:59 Intake Total 1274 1018 1000 200 Output Total 2000 300 2000 Balance -726 718 -1000 200 Meds/Results Medications: Active Medications Generic Name Dose Route Start Last Admin Trade Name Freq PRN Reason Stop Dose Admin Acetaminophen 650 mg 02/02/25 09:12 02/10/25 12:11 Acetaminophen Elixir 325 Mg/10.15 Ml Udc FEED TUBE 650 mg Q4H PRN Administration Mild Pain (1-5) Or Fever Hydrocodone Bitart/Acetaminophen 1 tab 02/13/25 16:31 02/15/25 21:30 Hydrocodone/Acetaminophen (*Crx) 5-325 Mg Tablet FEED TUBE 1 tab Q6H PRN Administration Pain Rated 6 or Greater Amlodipine Besylate 10 mg 02/02/25 09:00 02/15/25 13:13 Amlodipine Besylate 10 Mg Tablet FEED TUBE 10 mg DAILY JAYME Administration Carvedilol 25 mg 02/10/25 09:00 02/15/25 21:31 Carvedilol 25 Mg Tablet FEED TUBE 25 mg Q12H JAYME Administration Clonidine HCl 1 patch 02/11/25 09:00 02/11/25 12:56 Clonidine 0.1 Mg/24 Hr Patch TRANSDERM 1 patch WEEKLY JAYME Administration Dextrose 12.5 gm 01/30/25 14:22 02/15/25 13:20 Dextrose 50% 25 Gm/50 Ml Syringe IV PUSH 12.5 gm PRN PRN Administration Hypoglycemia Protocol Diazepam 5 mg 01/29/25 22:29 02/15/25 17:22 Diazepam Inj (*Crx) 10 Mg/2 Ml Syringe IV PUSH 5 mg Q6H PRN Administration Intractable nausea vomiting Diphenhydramine HCl 50 mg 02/14/25 11:39 02/16/25 02:14 Diphenhydramine Hcl Inj 50 Mg/Ml Vial IV PUSH 50 mg Q6H PRN Administration Itching Escitalopram Oxalate 10 mg 02/02/25 09:00 02/15/25 13:12 Escitalopram Oxalate 10 Mg Tablet FEED TUBE 10 mg DAILY JAYME Administration Gabapentin 100 mg 02/02/25 09:00 02/15/25 16:24 Gabapentin 100 Mg Capsule FEED TUBE Not Given TID JAYME Glucagon 1 mg 01/30/25 14:22 Glucagon For Inj 1 Mg Vial IM PRN PRN Hypoglycemia Protocol Glucose 15 gm 01/30/25 14:22 Glucose Oral Gel 15 Gm Of Glucse In 37.5 Gm Tube PO PRN PRN Hypoglycemia Protocol Heparin Sodium (Beef Lung) 50 units 01/31/25 09:00 02/15/25 08:23 Heparin Flush 50 Units/5 Ml Syringe IV PUSH 50 units QAM JAYME Administration Heparin Sodium (Beef Lung) 50 units 01/30/25 10:15 02/10/25 21:49 Heparin Flush 50 Units/5 Ml Syringe IV PUSH 50 units PRN PRN Administration after intermittent infusion Heparin Sodium (Beef Lung) 50 units 01/30/25 10:15 02/08/25 04:37 Heparin Flush 50 Units/5 Ml Syringe IV PUSH 50 units PRN PRN Administration after blood draws Heparin Sodium (Porcine) 5,000 units 01/30/25 09:00 02/15/25 21:16 Heparin Sodium 5,000 Units/Ml Vial SUB-Q Not Given Q12HR JAYME Heparin Sodium (Porcine) 500 units 01/30/25 10:15 Heparin Sodium Lock Flush 500 Units/5 Ml Syringe IV PUSH PRN PRN see comments below Albumin Human 50 mls @ 999 mls/hr 01/30/25 05:27 Albutein IVPB 03/01/25 05:26 Q10M PRN HYPOTENSION Dextrose 1,000 mls @ 100 mls/hr 01/30/25 14:22 Dextrose 5% 1,000 Ml IVPB PRN PRN Hypoglycemia Protocol Insulin Aspart 2 - 5 units 02/02/25 08:00 02/15/25 16:56 Insulin Aspart (*Bkc) 100 Units/Ml SUB-Q Not Given TIDWM [facility] Protocol Insulin Aspart 5 units 02/11/25 18:00 02/16/25 06:14 Insulin Aspart (*Bkc) 100 Units/Ml SUB-Q Not Given TID@0000,0600,1800 [facility] Insulin Aspart 5 units 02/11/25 12:32 Insulin Aspart (*Bkc) 100 Units/Ml SUB-Q DAILY@1200 PRN ONLY IF PT EATS LUNCH Insulin Glargine 25 units 02/15/25 08:00 02/15/25 08:23 Insulin Glargine (*Bkc) 100 Units/Ml SUB-Q 25 units DAILY@0800 [facility] Administration Isosorbide Dinitrate 20 mg 02/04/25 17:00 02/15/25 16:24 Isosorbide Dinitrate 20 Mg Tablet FEED TUBE Not Given TID [facility] Losartan Potassium 100 mg 02/11/25 09:00 02/15/25 13:12 Losartan Potassium 100 Mg Tablet FEED TUBE 100 mg DAILY JAYME Administration Miscellaneous Information 1 each 02/02/25 08:57 Pharmacist Communication Order XX 03/04/25 08:56 ONCE [facility] Multi-Ingred Cream/Lotion/Oil/Oint 1 applic 02/08/25 09:00 02/15/25 08:20 Eucerin Cream 120 Gm Jar TOPICAL Not Given DAILY [facility] Ondansetron HCl 4 mg 01/30/25 18:35 02/13/25 17:08 Ondansetron Inj 4 Mg/2 Ml Vial IV PUSH 4 mg Q4H PRN Administration Nausea And Vomiting Pantoprazole Sodium 40 mg 02/14/25 09:00 02/15/25 08:22 Pantoprazole 40 Mg Tablet PO Not Given QAM [facility] Promethazine HCl 25 mg 02/08/25 18:01 Promethazine Hcl 25 Mg Tablet FEED TUBE Q4H PRN Nausea And Vomiting Sodium Chloride 10 ml 01/30/25 14:00 02/16/25 06:14 Central Line Flush IV PUSH 10 ml Q8HR JAYME Administration Radiology Results: ITS Impressions Chest X-Ray 02/02/25 20:02 IMPRESSION: No acute pulmonary findings. Chest/Abdomen/Pelvis CT 02/05/25 07:39 IMPRESSION: 1. Persistent airspace and groundglass opacities in left lung lower lobe with volume loss, consistent with pneumonia versus atelectasis/scarring. 2. Mild mediastinal, retroperitoneal, and pelvic lymphadenopathy, likely reactive. Labs Labs: Laboratory Results - last 24 hr 02/15/25 02/15/25 02/15/25 03:41 08:06 13:14 WBC RBC Hgb Hct MCV MCH MCHC RDW Plt Count MPV Immature Gran % (Auto) Neut % (Auto) Lymph % (Auto) [place] % (Auto) Eos % (Auto) Baso % (Auto) Lymph # (Auto) [place] # (Auto) Eos # (Auto) Baso # (Auto) Abs Immat Gran (auto) Absolute Neuts (auto) Absolute Nucleated RBC Nucleated RBC % Sodium Potassium Chloride Carbon Dioxide Anion Gap BUN Creatinine Estim Creat Clear Calc Estimated GFR Glucose POC Capillary Glucose 342 H 178 H 60 L Calcium Total Bilirubin AST ALT Alkaline Phosphatase Total Protein Albumin 02/15/25 02/15/25 02/15/25 13:52 16:55 21:41 WBC RBC Hgb Hct MCV MCH MCHC RDW Plt Count MPV Immature Gran % (Auto) Neut % (Auto) Lymph % (Auto) [place] % (Auto) Eos % (Auto) Baso % (Auto) Lymph # (Auto) [place] # (Auto) Eos # (Auto) Baso # (Auto) Abs Immat Gran (auto) Absolute Neuts (auto) Absolute Nucleated RBC Nucleated RBC % Sodium Potassium Chloride Carbon Dioxide Anion Gap BUN Creatinine Estim Creat Clear Calc Estimated GFR Glucose POC Capillary Glucose 130 H 92 227 H Calcium Total Bilirubin AST ALT Alkaline Phosphatase Total Protein Albumin 02/15/25 02/16/25 02/16/25 23:56 04:16 05:14 WBC 5.4 RBC 3.97 L Hgb 11.6 L Hct 37.9 MCV 95.5 MCH 29.2 MCHC 30.6 L RDW 17.1 H Plt Count 340 MPV 9.5 Immature Gran % (Auto) 0.2 Neut % (Auto) 52.1 Lymph % (Auto) 33.5 [place] % (Auto) 9.0 H Eos % (Auto) 4.8 H Baso % (Auto) 0.4 Lymph # (Auto) 1.82 [place] # (Auto) 0.5 Eos # (Auto) 0.3 Baso # (Auto) 0.0 Abs Immat Gran (auto) 0.01 Absolute Neuts (auto) 2.8 Absolute Nucleated RBC 0.000 Nucleated RBC % 0.0 Sodium 136 L Potassium 4.9 Chloride 100 Carbon Dioxide 25 Anion Gap 11 BUN 29 H D Creatinine 4.94 H Estim Creat Clear Calc 13 Estimated GFR 10 L Glucose 233 H POC Capillary Glucose 394 H 212 H Calcium 8.9 Total Bilirubin 0.3 AST 42 H ALT 38 H Alkaline Phosphatase 231 H Total Protein 7.4 Albumin 4.0 02/16/25 06:04 WBC RBC Hgb Hct MCV MCH MCHC RDW Plt Count MPV Immature Gran % (Auto) Neut % (Auto) Lymph % (Auto) [place] % (Auto) Eos % (Auto) Baso % (Auto) Lymph # (Auto) [place] # (Auto) Eos # (Auto) Baso # (Auto) Abs Immat Gran (auto) Absolute Neuts (auto) Absolute Nucleated RBC Nucleated RBC % Sodium Potassium Chloride Carbon Dioxide Anion Gap BUN Creatinine Estim Creat Clear Calc Estimated GFR Glucose POC Capillary Glucose 205 H Calcium Total Bilirubin AST ALT Alkaline Phosphatase Total Protein Albumin Quality VTE Prophylaxis VTE prophylaxis: pharmacologic ordered (Heparin 5000 units subQ q.12 hours.)
[2025-02-16] MEDS: INSULIN GLARGINE (*BKC) 100 UNITS/ML 25 UNITS SUB-Q (08:28)
--- NOTE | 2025-02-16 08:46 | PC.NURSE ---
pt did not want a.m meds at this time, she requested IV benadryl prior to meds being administered as she states that helps with nausea, administered and I will check with her in aprox 30 minutes
[2025-02-16] MEDS: diazePAM INJ (*CRX) 10 MG/2 ML SYRINGE 5 MG IV PUSH ×2 (09:21→20:48)
--- NOTE | 2025-02-16 12:34 | PCNFU ---
Addendum entered by Keshia Lyon, RD, LDN 02/16/25 12:39: Nutrition Follow-Up Complete: Inadequate oral intake related to altered GI function as evidenced by need for full tube feeds Meet estimated nutrition needs - Progressing with goals. Continue same goals Goal: Pt current nutrition is Regular diet. Nepro @ 45 ml/h from 6 pm-10 am. . Nutrition recommendation: No nutrition recommendations. Continue current nutrition care plan and orders. Agree with orders Last recorded weight is 65.1 kg. Bowel Motility: +BM 02/08 Labs Reviewed: Hgb 11.6, Na 136, BUN 29, Cre 4.94, Glu 233 Meds Noted: Protonix, heparin Skin: o skin issues Additional Notes: Patient remains on a Regular diet. Intakes has been inconsistent. Refused meals all day yesterday. tube feeds did run overnight, tolerating. She is is currently taking her tube feedings of Nepro at 45 ml/hr her J tube (14 hours, 6pm-10am) providing an additional 1134 kcal/43 gm protein/458 ml water. Flush 30 ml q 4 hours. Discussions regarding palliative care at discharge. Agree with diet orders at this time. Monitoring tube feeding tolerance, labs, weights, meds, output, plan of care Follow up . Original Note: Nutrition Follow-Up Complete: Inadequate oral intake related to altered GI function as evidenced by need for full tube feeds Meet estimated nutrition needs - Progressing with goals. Continue same goals Goal: Pt current nutrition is Regular diet. Nepro @ 45 ml/h from 6 pm-10 am. . Nutrition recommendation: Last recorded weight is 65.1 kg. Bowel Motility: Labs Reviewed: Meds Noted: Skin: Additional Notes: Patient remains on a Regular diet. Intakes has been very inconsistent and patient had been reported refusing tube feedings. She is is currently taking her tube feedings of Nepro at 45 ml/hr her J tube (14 hours, 6pm-10am) providing an additional 1134 kcal/43 gm protein/458 ml water. Flush 30 ml q 4 hours. Dialysis today. Discussions regarding palliative care at discharge. Agree with diet orders at this time. Monitoring tube feeding tolerance, labs, weights, meds, output, plan of care Follow up Wednesday/Wednesday. Daily rounds
--- NOTE | 2025-02-16 13:52 | P.DS_ITS ---
DS: Admitting Diagnosis Discharge Date 02/16/2025 Admitting Diagnosis Nausea and vomiting, DKA DS: Discharge Diagnosis Discharge Diagnosis (1) Nausea & vomiting: Qualifiers: Vomiting type: unspecified Qualified Code(s): R11.2 - Nausea with vomiting, unspecified Code(s): R11.2 - Nausea with vomiting, unspecified Status: Acute Assessment and Plan: * History of chronic nausea and vomiting with known gastroparesis s/p GJ tube placement and gastric pacemaker * Was having persistent abdominal pain requiring frequent dilaudid use but able to wean down. * CT C/A/P showing persistent LLL airspace disease and mild adenopathy. The LLL PNA initially noted by CT on 12/23/24 but no prior imaging to review. * On tube feeds at night which she tolerates at times * Narcotics may be contributing to her nausea as a side effect and slowing her gastric motility. * Abd soft with minimal pain and nml BMs; doubt obstructive process. Tolerated TF so GJ tube is functioning. * Probably a component of cyclic vomiting syndrome * Will stop dilaudid and percocet. Hold off on repeating CT. * Continue Zofran and phenergan prn. Change Benadryl to Q8hr 02/15: * Pt reporting moderate pain and continued nausea. Pt in acute distress due to both of these things. * Ordered Dilaudid 0.5mg once for break through pain as well as changed Benadryl back to 50mg q6, hopeful these will get her through the night with eventual weaning more / discontinuation tomorrow (2) Type 1 diabetes: Qualifiers: Diabetes mellitus complication status: with hyperglycemia Qualified Code(s): E10.65 - Type 1 diabetes mellitus with hyperglycemia Code(s): E10.9 - Type 1 diabetes mellitus without complications Status: Chronic Assessment and Plan: * A1c 8.4 last month. She takes 15 units Lantus at home * She gets tube feeds overnight and is on Novolog Q6hr (except at noon which is PRN if she eats). * The patient's blood glucose was reviewed on 02/13 * Glucose higher this morning (369) since she tolerated TF * Continue AccuCheks covering with sliding scale. Hypoglycemia protocol available as needed. * Advance Lantus this morning. * Increased Lantus from 22 to home dose of 25 units of lantus starting today (3) DKA, type 1: Qualifiers: Diabetes mellitus complication detail: without coma Qualified Code(s): E10.10 - Type 1 diabetes mellitus with ketoacidosis without coma Code(s): E10.10 - Type 1 diabetes mellitus with ketoacidosis without coma Status: Acute Assessment and Plan: * DKA on presentation. Her anion gap metabolic acidosis was complicated by history of ESRD * Pt was not given given IVF due to ESRD * DKA protocol with insulin infusion and Q1H glucose monitoring * Anion gap closed and patient was transition to subcutaneous insulin * DKA resolved. Follow (4) End stage renal disease on dialysis: Code(s): N18.6 - End stage renal disease; Z99.2 - Dependence on renal dialysis Status: Acute Assessment and Plan: * Inpatient dialysis per Nephrology * Normally on schedule * Tolerated HD today. 02/15: HD (5) SIRS (systemic inflammatory response syndrome): Code(s): R65.10 - Systemic inflammatory response syndrome (SIRS) of non-infectious origin without acute organ dysfunction Status: Acute Assessment and Plan: * Findings suggestive of sirs likely from DKA. Procalcitonin level is 2.5 but patient was afebrile with normal WBC count. Abx were held. BCx negative. Urine culture mixed urogenital lupe 25-50 K. * MRSA nasal swab negative. * CT with findings of left lower lobe pneumonia but this seems more of a chronic finding and not much change since Dec. Probably more likely scarring. * Started ceftriaxone and doxycycline 02/05/25 and completed a 5 day course. * Continue to monitor off abx. (6) Hypertension: Code(s): I10 - Essential (primary) hypertension Status: Chronic Assessment and Plan: * Patient's blood pressure was reviewed on 02/14 * On Coreg, amlodipine, isosorbide and Cozaar. Clonidine patch ordered as well * Continue to advance medications as needed. Plan DVT prophylaxis -heparin subQ (patient refusing most of the time); SCD added Nutrition -continue Tube Feeds at night as she tolerates Code Status - Full Code Dispostion - explained to patient not much more to offer. She supposedly has been set up with palliative care but [facility] declined the patient referral due to previous unsuccessful attempts to contact patient to admit. -->reports today that she has a palliative care [employer] that is coming out to her house next week to set up care. -->Discharge when pain and nausea better controlled and able tolerate tube feeds DS: Summary Time Spent with Patient Time attestation: Total time spent providing and/or coordinating discharge services: Exam Narrative: AF 98.5 164/81 87 14 98% ra Gen - NARD Chest - left upper chest port. Right upper chest HD catheter in place. CTA bilaterally. CV - RRR S1/S2 Abd - soft, +BS. G/J tube in place. Nontender. Stimulator device left upper abdomen. Ext - no pedal edema. Psych -depressed mood Skin -warm and dry Const: Other: Well-developed well-nourished, mildly ill-appearing HENMT: Other: Mucous membranes are tacky, no oral pharyngeal erythema, fair dentition Eyes: Other: Pupils are equal and reactive, no scleral icterus, positive conjunctival pallor Neck: Other: Palpable thyroid, no lymphadenopathy Resp: Other: Clear to auscultation bilaterally, no increased work of breathing Cardio: Other: Regular rate, regular rhythm, 2+ bilateral radial pedal pulses GI: Other: Mild TTP to epigastric abd, nondistended, G-button in J-tube in place Stimulator device left upper abdomen. Skin: Other: Mild pallor, non jaundice L upper chest port. R upper chest HD catheter in place. Stimulator device left upper abdomen. Neuro: Other: Lethargic, hard to awaken today due to. No localizing neurologic deficits noted during conversation Extrem: Other: Trace edema to all extremities and face Psych: Other: Flat affect, cooperative DS: Data Data Completed and Pending Labs on day of discharge: Labs from last 24 hours 02/16/25 02/16/25 02/16/25 11:45 07:45 06:04 WBC RBC Hgb Hct MCV MCH MCHC RDW Plt Count MPV Immature Gran % (Auto) Neut % (Auto) Lymph % (Auto) [place] % (Auto) Eos % (Auto) Baso % (Auto) Lymph # (Auto) [place] # (Auto) Eos # (Auto) Baso # (Auto) Abs Immat Gran (auto) Absolute Neuts (auto) Absolute Nucleated RBC Nucleated RBC % Sodium Potassium Chloride Carbon Dioxide Anion Gap BUN Creatinine Estim Creat Clear Calc Estimated GFR Glucose POC Capillary Glucose 120 H 218 H 205 H Calcium Total Bilirubin AST ALT Alkaline Phosphatase Total Protein Albumin 02/16/25 02/16/25 02/15/25 05:14 04:16 23:56 WBC 5.4 RBC 3.97 L Hgb 11.6 L Hct 37.9 MCV 95.5 MCH 29.2 MCHC 30.6 L RDW 17.1 H Plt Count 340 MPV 9.5 Immature Gran % (Auto) 0.2 Neut % (Auto) 52.1 Lymph % (Auto) 33.5 [place] % (Auto) 9.0 H Eos % (Auto) 4.8 H Baso % (Auto) 0.4 Lymph # (Auto) 1.82 [place] # (Auto) 0.5 Eos # (Auto) 0.3 Baso # (Auto) 0.0 Abs Immat Gran (auto) 0.01 Absolute Neuts (auto) 2.8 Absolute Nucleated RBC 0.000 Nucleated RBC % 0.0 Sodium 136 L Potassium 4.9 Chloride 100 Carbon Dioxide 25 Anion Gap 11 BUN 29 H D Creatinine 4.94 H Estim Creat Clear Calc 13 Estimated GFR 10 L Glucose 233 H POC Capillary Glucose 212 H 394 H Calcium 8.9 Total Bilirubin 0.3 AST 42 H ALT 38 H Alkaline Phosphatase 231 H Total Protein 7.4 Albumin 4.0 02/15/25 02/15/25 02/15/25 21:41 16:55 13:52 WBC RBC Hgb Hct MCV MCH MCHC RDW Plt Count MPV Immature Gran % (Auto) Neut % (Auto) Lymph % (Auto) [place] % (Auto) Eos % (Auto) Baso % (Auto) Lymph # (Auto) [place] # (Auto) Eos # (Auto) Baso # (Auto) Abs Immat Gran (auto) Absolute Neuts (auto) Absolute Nucleated RBC Nucleated RBC % Sodium Potassium Chloride Carbon Dioxide Anion Gap BUN Creatinine Estim Creat Clear Calc Estimated GFR Glucose POC Capillary Glucose 227 H 92 130 H Calcium Total Bilirubin AST ALT Alkaline Phosphatase Total Protein Albumin Discharge Plan Discharge Attending physician on discharge: Romario Moy Consulting providers: Lisa Franks; Deangelo Romeo; Nori Lord; Mart Leal Discharging Clinician: Mart Leal Anticipated Discharge Date/Time: 02/16/25 13:49 Patient Disposition: Home Activity: as tolerated Diet: tube feeding Discharge Instructions: Discharge disposition: Home Take medications as prescribed Continue Tube feeds per recommendations from Dietary: regular diet, Nepro @ 45mls/hr 6pm-10am Monitor blood pressures Take caution while standing, rising, or moving Change positions slowly taking a break between each position change If you standing feel dizzy sit back down and take a break Encouraged to continue with yearly vaccinations Return to the emergency department if you develop sudden shortness of breath, chest pain, nausea, vomiting, upset stomach or intractable diarrhea Return to the emergency department if you develop fever greater than 101.5 Follow-up with the primary care physician within 1-2 weeks Thank you for [facility] for your healthcare needs Patient Instructions: Antibiotic Form Patient Language: [place]alander Stand Alone Forms: General Discharge Information Follow-up/Referrals: Rene,Edgardo Mak MD [Primary Care Provider, Unknown] Discharge Medications: Continued insulin glargine [Lantus Solostar U-100 Insulin] 100 unit/mL (3 mL) insulin pen 15 unit SUBCUT .AM losartan 25 mg tablet 25 mg PO DAILY insulin lispro 100 unit/mL insulin pen 1 sliding scale dose SUBCUT PRN carvedilol 12.5 mg tablet 12.5 mg PO Q12H amlodipine 10 mg tablet 10 mg PO DAILY escitalopram oxalate 10 mg tablet 10 mg PO DAILY gabapentin 100 mg capsule 100 mg PO TID Gvoke HypoPen 2-Pack 0.5 mg/0.1 mL auto-injector 0.5 mg SUBCUT PRN PRN (Reason: hypoglycemia) metoprolol succinate 200 mg tablet extended release 24 hr 200 mg PO DAILY isosorbide mononitrate 30 mg Tablet Extended Release 24 Hr 30 mg PO QAM 30 Days Qty: 30 1RF pantoprazole 40 mg Tablet,Delayed Release (Dr/Ec) 40 mg PO QAM 30 Days Qty: 30 0RF Date of admission: 01/30/25 17:52 Primary Care Provider: Luis CarlosEdgardo Admitting Provider: Yanique Campbell Attending physician on admission: Yanique Campbell Condition: Stable Quality VTE Prophylaxis VTE prophylaxis: pharmacologic ordered (Heparin 5000 units subQ q.12 hours.)
[2025-02-16 14:00] VITALS: BP 196/100; PULSE 92; RESP 16; TEMP 36.6; O2SAT 100
--- NOTE | 2025-02-16 14:22 | P.PNIM_ITS ---
Progress Note: A&P Assessment and Plan (1) Nausea & vomiting: Qualifiers: Vomiting type: unspecified Qualified Code(s): R11.2 - Nausea with vomiting, unspecified Code(s): R11.2 - Nausea with vomiting, unspecified Status: Acute Assessment and Plan: * History of chronic nausea and vomiting with known gastroparesis s/p GJ tube placement and gastric pacemaker * Was having persistent abdominal pain requiring frequent dilaudid use but able to wean down. * CT C/A/P showing persistent LLL airspace disease and mild adenopathy. The LLL PNA initially noted by CT on 12/23/24 but no prior imaging to review. * On tube feeds at night which she tolerates at times * Narcotics may be contributing to her nausea as a side effect and slowing her gastric motility. * Abd soft with minimal pain and nml BMs; doubt obstructive process. Tolerated TF so GJ tube is functioning. * Probably a component of cyclic vomiting syndrome * Will stop dilaudid and percocet. Hold off on repeating CT. * Continue Zofran and phenergan prn. Change Benadryl to Q8hr 02/16: * Pt reporting moderate pain and continued nausea. Pt in acute distress due to both of these things. * Was given 1 dose of 0.2 mg IV Dilaudid at 2 a.m. * She is stating only IV Benadryl will curb her nausea/vomiting * Had a long discussion with her regarding plan of care - okay with discharge tomorrow if n/v improves and can tolerate food (2) Type 1 diabetes: Qualifiers: Diabetes mellitus complication status: with hyperglycemia Qualified Code(s): E10.65 - Type 1 diabetes mellitus with hyperglycemia Code(s): E10.9 - Type 1 diabetes mellitus without complications Status: Chronic Assessment and Plan: * A1c 8.4 last month. She takes 15 units Lantus at home * She gets tube feeds overnight and is on Novolog Q6hr (except at noon which is PRN if she eats). * The patient's blood glucose was reviewed on 02/13 * Glucose higher this morning (369) since she tolerated TF * Continue AccuCheks covering with sliding scale. Hypoglycemia protocol available as needed. * Advance Lantus this morning. * Increased Lantus from 22 to home dose of 25 units of lantus starting today (3) DKA, type 1: Qualifiers: Diabetes mellitus complication detail: without coma Qualified Code(s): E10.10 - Type 1 diabetes mellitus with ketoacidosis without coma Code(s): E10.10 - Type 1 diabetes mellitus with ketoacidosis without coma Status: Acute Assessment and Plan: * DKA on presentation. Her anion gap metabolic acidosis was complicated by history of ESRD * Pt was not given given IVF due to ESRD * DKA protocol with insulin infusion and Q1H glucose monitoring * Anion gap closed and patient was transition to subcutaneous insulin * DKA resolved. Follow (4) End stage renal disease on dialysis: Code(s): N18.6 - End stage renal disease; Z99.2 - Dependence on renal dialysis Status: Acute Assessment and Plan: * Inpatient dialysis per Nephrology * Normally on schedule * Tolerated HD today. 02/15: HD (5) SIRS (systemic inflammatory response syndrome): Code(s): R65.10 - Systemic inflammatory response syndrome (SIRS) of non-infectious origin without acute organ dysfunction Status: Acute Assessment and Plan: * Findings suggestive of sirs likely from DKA. Procalcitonin level is 2.5 but patient was afebrile with normal WBC count. Abx were held. BCx negative. Urine culture mixed urogenital lupe 25-50 K. * MRSA nasal swab negative. * CT with findings of left lower lobe pneumonia but this seems more of a chronic finding and not much change since Dec. Probably more likely scarring. * Started ceftriaxone and doxycycline 02/05/25 and completed a 5 day course. * Continue to monitor off abx. (6) Hypertension: Code(s): I10 - Essential (primary) hypertension Status: Chronic Assessment and Plan: * Patient's blood pressure was reviewed on 02/14 * On Coreg, amlodipine, isosorbide and Cozaar. Clonidine patch ordered as well * Continue to advance medications as needed. Plan DVT prophylaxis -heparin subQ (patient refusing most of the time); SCD added Nutrition -continue Tube Feeds at night as she tolerates Code Status - Full Code Dispostion - explained to patient not much more to offer. She supposedly has been set up with palliative care but [facility] declined the patient referral due to previous unsuccessful attempts to contact patient to admit. -->reports today that she has a palliative care [employer] that is coming out to her house next week to set up care. -->Discharge when pain and nausea better controlled and able tolerate tube feeds Subjective Date/time seen: 02/16/25 14:22 Interval history: No acute overnight events. Patient did receive 1 dose of IV Dilaudid at 2:00 a.m. this morning. She is endorsing significant nausea and emesis throughout the day. Pain is under control, I had a long discussion with her regarding transitioning from IV to oral pain medications in preparation for discharge and patient is in agreement at this time. Will continue IV Benadryl as patient states that this is the only thing that helps her nausea/vomiting. Will look to discharge tomorrow morning. She states that she has palliative care set taken not to her house early next week. Review of Systems Review of Systems: 12 systems were reviewed with pertinent positives and negatives per HPI. Except as documented in the HPI, all other systems were reviewed and are negative. Exam Narrative: AF 98.5 164/81 87 14 98% ra Gen - NARD Chest - left upper chest port. Right upper chest HD catheter in place. CTA bilaterally. CV - RRR S1/S2 Abd - soft, +BS. G/J tube in place. Nontender. Stimulator device left upper abdomen. Ext - no pedal edema. Psych -depressed mood Skin -warm and dry Const: Other: Well-developed well-nourished, mildly ill-appearing HENMT: Other: Mucous membranes are tacky, no oral pharyngeal erythema, fair dentition Eyes: Other: Pupils are equal and reactive, no scleral icterus, positive conjunctival pallor Neck: Other: Palpable thyroid, no lymphadenopathy Resp: Other: Clear to auscultation bilaterally, no increased work of breathing Cardio: Other: Regular rate, regular rhythm, 2+ bilateral radial pedal pulses GI: Other: Mild TTP to epigastric abd, nondistended, G-button in J-tube in place Stimulator device left upper abdomen. Skin: Other: Mild pallor, non jaundice L upper chest port. R upper chest HD catheter in place. Stimulator device left upper abdomen. Neuro: Other: Lethargic, hard to awaken today due to. No localizing neurologic deficits noted during conversation Extrem: Other: Trace edema to all extremities and face Psych: Other: Flat affect, cooperative Objective Data Vital Signs Vital Signs: Vital Signs - 24 hr 02/15/25 20:00 02/15/25 21:03 02/15/25 21:43 Temperature 97.7 F Pulse Rate 82 83 Respiratory Rate 16 Blood Pressure 142/84 H Pulse Oximetry 100 100 Oxygen Delivery Room Air Room Air Fraction of Inspired Oxygen 02/16/25 04:17 02/16/25 08:20 Temperature 97.7 F Pulse Rate 81 Respiratory Rate 16 Blood Pressure 138/80 Pulse Oximetry 100 Oxygen Delivery Room Air Fraction of Inspired Oxygen Intake/Output Intake/Output: Intake & Output 02/13/25 02/14/25 02/15/25 02/16/25 23:59 23:59 23:59 23:59 Intake Total 1274 1018 1000 200 Output Total 2000 300 2000 Balance -726 718 -1000 200 Meds/Results Medications: Active Medications Generic Name Dose Route Start Last Admin Trade Name Freq PRN Reason Stop Dose Admin Acetaminophen 650 mg 02/02/25 09:12 02/10/25 12:11 Acetaminophen Elixir 325 Mg/10.15 Ml Udc FEED TUBE 650 mg Q4H PRN Administration Mild Pain (1-5) Or Fever Hydrocodone Bitart/Acetaminophen 1 tab 02/13/25 16:31 02/15/25 21:30 Hydrocodone/Acetaminophen (*Crx) 5-325 Mg Tablet FEED TUBE 1 tab Q6H PRN Administration Pain Rated 6 or Greater Amlodipine Besylate 10 mg 02/02/25 09:00 02/15/25 13:13 Amlodipine Besylate 10 Mg Tablet FEED TUBE 10 mg DAILY JAYME Administration Carvedilol 25 mg 02/10/25 09:00 02/15/25 21:31 Carvedilol 25 Mg Tablet FEED TUBE 25 mg Q12H JAYME Administration Clonidine HCl 1 patch 02/11/25 09:00 02/11/25 12:56 Clonidine 0.1 Mg/24 Hr Patch TRANSDERM 1 patch WEEKLY JAYME Administration Dextrose 12.5 gm 01/30/25 14:22 02/15/25 13:20 Dextrose 50% 25 Gm/50 Ml Syringe IV PUSH 12.5 gm PRN PRN Administration Hypoglycemia Protocol Diazepam 5 mg 01/29/25 22:29 02/16/25 09:21 Diazepam Inj (*Crx) 10 Mg/2 Ml Syringe IV PUSH 5 mg Q6H PRN Administration Intractable nausea vomiting Diphenhydramine HCl 50 mg 02/14/25 11:39 02/16/25 08:34 Diphenhydramine Hcl Inj 50 Mg/Ml Vial IV PUSH 50 mg Q6H PRN Administration Itching Escitalopram Oxalate 10 mg 02/02/25 09:00 02/15/25 13:12 Escitalopram Oxalate 10 Mg Tablet FEED TUBE 10 mg DAILY JAYME Administration Gabapentin 100 mg 02/02/25 09:00 02/15/25 16:24 Gabapentin 100 Mg Capsule FEED TUBE Not Given TID JAYME Glucagon 1 mg 01/30/25 14:22 Glucagon For Inj 1 Mg Vial IM PRN PRN Hypoglycemia Protocol Glucose 15 gm 01/30/25 14:22 Glucose Oral Gel 15 Gm Of Glucse In 37.5 Gm Tube PO PRN PRN Hypoglycemia Protocol Heparin Sodium (Beef Lung) 50 units 01/31/25 09:00 02/16/25 08:36 Heparin Flush 50 Units/5 Ml Syringe IV PUSH 50 units QAM JAYME Administration Heparin Sodium (Beef Lung) 50 units 01/30/25 10:15 02/10/25 21:49 Heparin Flush 50 Units/5 Ml Syringe IV PUSH 50 units PRN PRN Administration after intermittent infusion Heparin Sodium (Beef Lung) 50 units 01/30/25 10:15 02/08/25 04:37 Heparin Flush 50 Units/5 Ml Syringe IV PUSH 50 units PRN PRN Administration after blood draws Heparin Sodium (Porcine) 5,000 units 01/30/25 09:00 02/15/25 21:16 Heparin Sodium 5,000 Units/Ml Vial SUB-Q Not Given Q12HR JAYME Heparin Sodium (Porcine) 500 units 01/30/25 10:15 Heparin Sodium Lock Flush 500 Units/5 Ml Syringe IV PUSH PRN PRN see comments below Albumin Human 50 mls @ 999 mls/hr 01/30/25 05:27 Albutein IVPB 03/01/25 05:26 Q10M PRN HYPOTENSION Dextrose 1,000 mls @ 100 mls/hr 01/30/25 14:22 Dextrose 5% 1,000 Ml IVPB PRN PRN Hypoglycemia Protocol Insulin Aspart 2 - 5 units 02/02/25 08:00 02/16/25 12:37 Insulin Aspart (*Bkc) 100 Units/Ml SUB-Q Not Given TIDWM JAYME Protocol Insulin Aspart 5 units 02/11/25 18:00 02/16/25 06:14 Insulin Aspart (*Bkc) 100 Units/Ml SUB-Q Not Given TID@0000,0600,1800 [facility] Insulin Aspart 5 units 02/11/25 12:32 Insulin Aspart (*Bkc) 100 Units/Ml SUB-Q DAILY@1200 PRN ONLY IF PT EATS LUNCH Insulin Glargine 25 units 02/15/25 08:00 02/16/25 08:28 Insulin Glargine (*Bkc) 100 Units/Ml SUB-Q 25 units DAILY@0800 [facility] Administration Isosorbide Dinitrate 20 mg 02/04/25 17:00 02/15/25 16:24 Isosorbide Dinitrate 20 Mg Tablet FEED TUBE Not Given TID [facility] Losartan Potassium 100 mg 02/11/25 09:00 02/15/25 13:12 Losartan Potassium 100 Mg Tablet FEED TUBE 100 mg DAILY JAYME Administration Miscellaneous Information 1 each 02/02/25 08:57 Pharmacist Communication Order XX 03/04/25 08:56 ONCE [facility] Multi-Ingred Cream/Lotion/Oil/Oint 1 applic 02/08/25 09:00 02/15/25 08:20 Eucerin Cream 120 Gm Jar TOPICAL Not Given DAILY [facility] Ondansetron HCl 4 mg 01/30/25 18:35 02/13/25 17:08 Ondansetron Inj 4 Mg/2 Ml Vial IV PUSH 4 mg Q4H PRN Administration Nausea And Vomiting Pantoprazole Sodium 40 mg 02/14/25 09:00 02/15/25 08:22 Pantoprazole 40 Mg Tablet PO Not Given QAM [facility] Promethazine HCl 25 mg 02/08/25 18:01 Promethazine Hcl 25 Mg Tablet FEED TUBE Q4H PRN Nausea And Vomiting Sodium Chloride 10 ml 01/30/25 14:00 02/16/25 06:14 Central Line Flush IV PUSH 10 ml Q8HR JAYME Administration Radiology Results: ITS Impressions Chest X-Ray 02/02/25 20:02 IMPRESSION: No acute pulmonary findings. Chest/Abdomen/Pelvis CT 02/05/25 07:39 IMPRESSION: 1. Persistent airspace and groundglass opacities in left lung lower lobe with volume loss, consistent with pneumonia versus atelectasis/scarring. 2. Mild mediastinal, retroperitoneal, and pelvic lymphadenopathy, likely reactive. Labs Labs: Laboratory Results - last 24 hr 02/15/25 02/15/25 02/15/25 16:55 21:41 23:56 WBC RBC Hgb Hct MCV MCH MCHC RDW Plt Count MPV Immature Gran % (Auto) Neut % (Auto) Lymph % (Auto) [place] % (Auto) Eos % (Auto) Baso % (Auto) Lymph # (Auto) [place] # (Auto) Eos # (Auto) Baso # (Auto) Abs Immat Gran (auto) Absolute Neuts (auto) Absolute Nucleated RBC Nucleated RBC % Sodium Potassium Chloride Carbon Dioxide Anion Gap BUN Creatinine Estim Creat Clear Calc Estimated GFR Glucose POC Capillary Glucose 92 227 H 394 H Calcium Total Bilirubin AST ALT Alkaline Phosphatase Total Protein Albumin 02/16/25 02/16/25 02/16/25 04:16 05:14 06:04 WBC 5.4 RBC 3.97 L Hgb 11.6 L Hct 37.9 MCV 95.5 MCH 29.2 MCHC 30.6 L RDW 17.1 H Plt Count 340 MPV 9.5 Immature Gran % (Auto) 0.2 Neut % (Auto) 52.1 Lymph % (Auto) 33.5 [place] % (Auto) 9.0 H Eos % (Auto) 4.8 H Baso % (Auto) 0.4 Lymph # (Auto) 1.82 [place] # (Auto) 0.5 Eos # (Auto) 0.3 Baso # (Auto) 0.0 Abs Immat Gran (auto) 0.01 Absolute Neuts (auto) 2.8 Absolute Nucleated RBC 0.000 Nucleated RBC % 0.0 Sodium 136 L Potassium 4.9 Chloride 100 Carbon Dioxide 25 Anion Gap 11 BUN 29 H D Creatinine 4.94 H Estim Creat Clear Calc 13 Estimated GFR 10 L Glucose 233 H POC Capillary Glucose 212 H 205 H Calcium 8.9 Total Bilirubin 0.3 AST 42 H ALT 38 H Alkaline Phosphatase 231 H Total Protein 7.4 Albumin 4.0 02/16/25 02/16/25 07:45 11:45 WBC RBC Hgb Hct MCV MCH MCHC RDW Plt Count MPV Immature Gran % (Auto) Neut % (Auto) Lymph % (Auto) [place] % (Auto) Eos % (Auto) Baso % (Auto) Lymph # (Auto) [place] # (Auto) Eos # (Auto) Baso # (Auto) Abs Immat Gran (auto) Absolute Neuts (auto) Absolute Nucleated RBC Nucleated RBC % Sodium Potassium Chloride Carbon Dioxide Anion Gap BUN Creatinine Estim Creat Clear Calc Estimated GFR Glucose POC Capillary Glucose 218 H 120 H Calcium Total Bilirubin AST ALT Alkaline Phosphatase Total Protein Albumin Quality VTE Prophylaxis VTE prophylaxis: pharmacologic ordered (Heparin 5000 units subQ q.12 hours.)
--- NOTE | 2025-02-16 15:58 | PC.NURSE ---
pt ate 90% of late lunch tray, it was a sandwich and chips and drank a lemonade, I reviewed with pt that she did not get a.m meds, she states she will just get caught up tonight with her meds
--- NOTE | 2025-02-16 17:05 | PC.NURSE ---
VS charted at 1400 were actually taken at 1645, I reviewed with pt that she had not had medications and that it is important to get her blood pressure down, she is agreeable to take some of the meds at this time
[2025-02-16 17:15] VITALS: PULSE 92
[2025-02-16] MEDS: ISOSORBIDE DINITRATE 20 MG TABLET FEED TUBE (17:16)
[2025-02-16] MEDS: GABAPENTIN 100 MG CAPSULE FEED TUBE (17:17)
[2025-02-16 20:00] VITALS: BP 134/80; PULSE 84; RESP 16; TEMP 36.4; O2SAT 100
[2025-02-17] MEDS: INSULIN ASPART (*BKC) 100 UNITS/ML SUB-Q ×2 (00:49→08:28)
[2025-02-17 04:59] VITALS: BP 138/75; PULSE 79; RESP 16; TEMP 36.6; O2SAT 100
[2025-02-17] MEDS: CENTRAL LINE FLUSH 10 ML IV PUSH (05:29)
[2025-02-17 05:37] LABS: Hematocrit 36.7 % (37.0-47.0); Hemoglobin 11.3 g/dL (12.0-15.0); Immature Granulocyte Percent A 0.2 % (0-0.5); Lymphocytes Absolute Auto 2.08 K/mm3 (0.9-3.2); Mean Corpuscular HGB Conc 30.8 g/dl (32-36); Mean Corpuscular Hemoglobin 29.0 pg (26-34); Mean Corpuscular Volume 94.1 fl (80-100); Nucleated Red Blood Cells Absolute Auto 0.000 K/mm3 (0.0-0.012); Nucleated Red Blood Cells Perc 0.0 % (0.0-0.2); Platelet Count Result 337 k/mm3 (150-375); Red Blood Count 3.90 M/mm3 (4.2-5.4); White Blood Count 5.6 K/mm3 (4.5-10.0)
[2025-02-17 05:54] LABS: Alanine Aminotransferase 51 U/L (6-35); Albumin Level 3.9 g/dL (3.5-5.1); Alkaline Phosphatase 267 U/L (38-126); Anion Gap 8 mmol/L (4-12); Aspartate Amino Transferase 57 U/L (14-36); Bilirubin,Total 0.3 mg/dL (0.2-1.3); Blood Urea Nitrogen 50 mg/dL (7-17); Calcium 8.6 mg/dL (8.4-10.2); Carbon Dioxide 25 mmol/L (22-30); Chloride 100 mmol/L (98-107); Estimated CRCL calculation 10 ml/min; Estimated Glomerular Filt Rate 8; Glucose 107 mg/dL (65-110); Potassium 5.3 mmol/L (3.4-5.0); Sodium 133 mmol/L (137-145); Total Protein 7.0 g/dL (6.3-8.2)
[2025-02-17] MEDS: INSULIN GLARGINE (*BKC) 100 UNITS/ML 25 UNITS SUB-Q (08:28)
[2025-02-17] MEDS: diazePAM INJ (*CRX) 10 MG/2 ML SYRINGE 5 MG IV PUSH (08:40)
--- NOTE | 2025-02-17 08:43 | PC.NURSE ---
pt wishes to wait until jie dollcks in before taking a.m meds
--- NOTE | 2025-02-17 08:59 | P.DS_ITS ---
DS: Admitting Diagnosis Discharge Date 02/17/2025 Admitting Diagnosis DKA DS: Discharge Diagnosis Discharge Diagnosis (1) Nausea & vomiting: Qualifiers: Vomiting type: unspecified Qualified Code(s): R11.2 - Nausea with vomiting, unspecified Code(s): R11.2 - Nausea with vomiting, unspecified Status: Acute Assessment and Plan: * History of chronic nausea and vomiting with known gastroparesis s/p GJ tube placement and gastric pacemaker * Was having persistent abdominal pain requiring frequent dilaudid use but able to wean down. * CT C/A/P showing persistent LLL airspace disease and mild adenopathy. The LLL PNA initially noted by CT on 12/23/24 but no prior imaging to review. * On tube feeds at night which she tolerates at times * Narcotics may be contributing to her nausea as a side effect and slowing her gastric motility. * Abd soft with minimal pain and nml BMs; doubt obstructive process. Tolerated TF so GJ tube is functioning. * Probably a component of cyclic vomiting syndrome * Will stop dilaudid and percocet. Hold off on repeating CT. * Continue Zofran and phenergan prn. Change Benadryl to Q8hr 02/16: * Pt reporting moderate pain and continued nausea. Pt in acute distress due to both of these things. * Was given 1 dose of 0.2 mg IV Dilaudid at 2 a.m. * She is stating only IV Benadryl will curb her nausea/vomiting * Had a long discussion with her regarding plan of care - okay with discharge tomorrow if n/v improves and can tolerate food 02/17: Pt reporting better nausea control overnight, moderate this AM but agreeable for discharge with refill of her Zofran ODT (takes at home). -Discussion of CP / prolonged QT with risks of Zofran has been discussed with pt prior to discharge. (2) Type 1 diabetes: Qualifiers: Diabetes mellitus complication status: with hyperglycemia Qualified Code(s): E10.65 - Type 1 diabetes mellitus with hyperglycemia Code(s): E10.9 - Type 1 diabetes mellitus without complications Status: Chronic Assessment and Plan: * A1c 8.4 last month. She takes 15 units Lantus at home * She gets tube feeds overnight and is on Novolog Q6hr (except at noon which is PRN if she eats). * The patient's blood glucose was reviewed on 02/13 * Glucose higher this morning (369) since she tolerated TF * Continue AccuCheks covering with sliding scale. Hypoglycemia protocol av ailable as needed. * Advance Lantus this morning. * Increased Lantus from 22 to home dose of 25 units of lantus starting today 02/18: Pt to be discharged with home dose of 25U Lantus, to f/u with PCP / endo (3) DKA, type 1: Qualifiers: Diabetes mellitus complication detail: without coma Qualified Code(s): E10.10 - Type 1 diabetes mellitus with ketoacidosis without coma Code(s): E10.10 - Type 1 diabetes mellitus with ketoacidosis without coma Status: Acute Assessment and Plan: * DKA on presentation. Her anion gap metabolic acidosis was complicated by history of ESRD * Pt was not given given IVF due to ESRD * DKA protocol with insulin infusion and Q1H glucose monitoring * Anion gap closed and patient was transition to subcutaneous insulin * DKA resolved. Follow (4) End stage renal disease on dialysis: Code(s): N18.6 - End stage renal disease; Z99.2 - Dependence on renal dialysis Status: Acute Assessment and Plan: * Inpatient dialysis per Nephrology * Normally on schedule * Tolerated HD today. 02/15: HD 02/17: Pt to be discharged today in time for chair time HD at 1330. (5) SIRS (systemic inflammatory response syndrome): Code(s): R65.10 - Systemic inflammatory response syndrome (SIRS) of non-infectious origin without acute organ dysfunction Status: Acute Assessment and Plan: * Findings suggestive of sirs likely from DKA. Procalcitonin level is 2.5 but patient was afebrile with normal WBC count. Abx were held. BCx negative. Urine culture mixed urogenital lupe 25-50 K. * MRSA nasal swab negative. * CT with findings of left lower lobe pneumonia but this seems more of a chronic finding and not much change since Dec. Probably more likely scarring. * Started ceftriaxone and doxycycline 02/05/25 and completed a 5 day course. * Continue to monitor off abx. * Resolved (6) Hypertension: Code(s): I10 - Essential (primary) hypertension Status: Chronic Assessment and Plan: * Patient's blood pressure was reviewed on 02/14 * On Coreg, amlodipine, isosorbide and Cozaar. Clonidine patch ordered as well * Continue to advance medications as needed. 02/17: BP this AM before meds: 138/75, will continue on home meds. PCP f/u. Plan Discharge today with Zofran ODT. Plan for HD at normal chair time of 1330 this afternoon. Plan for Palliative care team to make a home visit to establish care this upcoming Wednesday02/21/2025. DS: Summary Hospital Course Reason for hospitalization: DKA Hospital Course: Pt initially to the ED on 01/29/2025 with N/V and was found to be in DKA. Hx of DM1 with gastroparesis. Pt had recently underwent JG tube placement at [facility] on 01/19/2025 and was giving herself nocturnal tube feeds but has not for a couple of days due to N/V/epigastric pain. Pt is on an HD schedule of TuThuSat. Pt nausea initially controlled by Haldol and Benadryl in the ED as well as being started on Insulin drip for her DKA, likely due to starvation ketosis. Pt was admitted to the ICU with nephrology consult. Pt moved to medical floor 01/31 - 02/01. Pt blood sugars have fluctuated since admission as well as her nausea and epigastric pain. She remained on her HD schedule during admission. Pt had been started on IV Benadryl for nausea and IV Dilaudid for pain, which were both appropriately weaned down to baseline administration of none the day of discharge. CT of abd with no acute intra abd findings but positive for LLL PNA, pt treated with ceftriaxone and doxy on 02/05 for full course while inpt. Pt also has been having HTN in the inpt setting and treated with her home Coreg, amlodipine, isosorbide and Cozaar (Cozaar increased on 03/14) with a Clonidine patch added 02/12. Come discharge, pt with tolerable nausea and no pain present. Zofran DOT rx refilled. Discussion of CP / prolonged QT with risks of Zofran has been discussed with pt prior to discharge. Pt with plan to have palliative care establish [place] [facility] visit this upcoming 02/21/2025. Pt also to continue her HD schedule with HD today at 1330 outpt. Pt to also f/u with PCP, endo, and neph outpt. Status at Discharge Overall status at discharge: patient is progressing back to baseline Time Spent with Patient Time attestation: Total time spent providing and/or coordinating discharge services: 40 Exam Const: Other: Well-developed well-nourished, mildly ill-appearing HENMT: Other: Mucous membranes are tacky, no oral pharyngeal erythema, fair dentition Eyes: Other: Pupils are equal and reactive, no scleral icterus, positive conjunctival pallor Neck: Other: Palpable thyroid, no lymphadenopathy Resp: Other: Clear to auscultation bilaterally, no increased work of breathing Cardio: Other: Regular rate, regular rhythm GI: Other: G-button in J-tube in place Stimulator device left upper abdomen. Skin: Other: Mild pallor, non jaundice L upper chest port. R upper chest HD catheter in place. Stimulator device left upper abdomen. Neuro: Other: Easily arouseable. No localizing neurologic deficits noted during conversation Extrem: Other: Trace edema to all extremities and face Psych: Other: Flat affect, cooperative DS: Data Data Completed and Pending Completed studies during hospitalization: Labs, urine, imaging Labs on day of discharge: Labs from last 24 hours 02/17/25 02/17/25 02/17/25 07:48 05:27 05:03 WBC 5.6 RBC 3.90 L Hgb 11.3 L Hct 36.7 L MCV 94.1 MCH 29.0 MCHC 30.8 L RDW 16.9 H Plt Count 337 MPV 9.9 Immature Gran % (Auto) 0.2 Neut % (Auto) 47.3 Lymph % (Auto) 37.3 [place] % (Auto) 10.6 H Eos % (Auto) 4.1 Baso % (Auto) 0.5 Lymph # (Auto) 2.08 [place] # (Auto) 0.6 Eos # (Auto) 0.2 Baso # (Auto) 0.0 Abs Immat Gran (auto) 0.01 Absolute Neuts (auto) 2.6 Absolute Nucleated RBC 0.000 Nucleated RBC % 0.0 Sodium 133 L Potassium 5.3 H Chloride 100 Carbon Dioxide 25 Anion Gap 8 BUN 50 H D Creatinine 6.37 H Estim Creat Clear Calc 10 Estimated GFR 8 L Glucose 107 POC Capillary Glucose 206 H 112 H Calcium 8.6 Total Bilirubin 0.3 AST 57 H ALT 51 H Alkaline Phosphatase 267 H Total Protein 7.0 Albumin 3.9 02/17/25 02/16/25 02/16/25 00:44 20:16 16:51 WBC RBC Hgb Hct MCV MCH MCHC RDW Plt Count MPV Immature Gran % (Auto) Neut % (Auto) Lymph % (Auto) [place] % (Auto) Eos % (Auto) Baso % (Auto) Lymph # (Auto) [place] # (Auto) Eos # (Auto) Baso # (Auto) Abs Immat Gran (auto) Absolute Neuts (auto) Absolute Nucleated RBC Nucleated RBC % Sodium Potassium Chloride Carbon Dioxide Anion Gap BUN Creatinine Estim Creat Clear Calc Estimated GFR Glucose POC Capillary Glucose 293 H 418 H 268 H Calcium Total Bilirubin AST ALT Alkaline Phosphatase Total Protein Albumin 02/16/25 11:45 WBC RBC Hgb Hct MCV MCH MCHC RDW Plt Count MPV Immature Gran % (Auto) Neut % (Auto) Lymph % (Auto) [place] % (Auto) Eos % (Auto) Baso % (Auto) Lymph # (Auto) [place] # (Auto) Eos # (Auto) Baso # (Auto) Abs Immat Gran (auto) Absolute Neuts (auto) Absolute Nucleated RBC Nucleated RBC % Sodium Potassium Chloride Carbon Dioxide Anion Gap BUN Creatinine Estim Creat Clear Calc Estimated GFR Glucose POC Capillary Glucose 120 H Calcium Total Bilirubin AST ALT Alkaline Phosphatase Total Protein Albumin Procedures/Treatments: HD Discharge Plan Discharge Attending physician on discharge: Castro Gustafson Consulting providers: Lisa Franks; Deangelo Romeo; Nori Lord; Mart Leal Discharging Clinician: Nori Lord Anticipated Discharge Date/Time: 02/17/25 11:00 Patient Disposition: Home Activity: as tolerated Diet: tube feeding Discharge Instructions: Discharge disposition: Home Take medications as prescribed Continue Tube feeds per recommendations from Dietary: regular diet, Nepro @ 45mls/hr 6pm-10am Continue taking 25 units of your Insulin Glargine. I have refilled your Zofran ODT today. Monitor blood pressures Take caution while standing, rising, or moving Change positions slowly taking a break between each position change If you standing feel dizzy sit back down and take a break Encouraged to continue with yearly vaccinations Return to the emergency department if you develop sudden shortness of breath, chest pain, nausea, vomiting, upset stomach or intractable diarrhea Return to the emergency department if you develop fever greater than 101.5 Follow-up with the primary care physician within 1-2 weeks Thank you for choosing [facility] for your healthcare needs Patient Instructions: Ondansetron (By mouth), Acute Nausea and Vomiting (DC) Patient Language: Barbadian Stand Alone Forms: General Discharge Information Follow-up/Referrals: Rene,Edgardo Mak MD [Primary Care Provider, Unknown] Discharge Medications: New ondansetron 4 mg tablet,disintegrating 4 mg PO Q6H Qty: 60 0RF Continued losartan 25 mg tablet 25 mg PO DAILY insulin lispro 100 unit/mL insulin pen 1 sliding scale dose SUBCUT PRN carvedilol 12.5 mg tablet 12.5 mg PO Q12H amlodipine 10 mg tablet 10 mg PO DAILY escitalopram oxalate 10 mg tablet 10 mg PO DAILY gabapentin 100 mg capsule 100 mg PO TID Gvoke HypoPen 2-Pack 0.5 mg/0.1 mL auto-injector 0.5 mg SUBCUT PRN PRN (Reason: hypoglycemia) metoprolol succinate 200 mg tablet extended release 24 hr 200 mg PO DAILY isosorbide mononitrate 30 mg Tablet Extended Release 24 Hr 30 mg PO QAM 30 Days Qty: 30 1RF pantoprazole 40 mg Tablet,Delayed Release (Dr/Ec) 40 mg PO QAM 30 Days Qty: 30 0RF Changed insulin glargine [Lantus Solostar U-100 Insulin] 100 unit/mL (3 mL) insulin pen 25 unit SUBCUT .AM Qty: 3 0RF Date of admission: 01/30/25 17:52 Primary Care Provider: Luis Carlos,Edgardo Mak Admitting Provider: Yanique Campbell Attending physician on admission: Yanique Campbell Condition: Stable Quality VTE Prophylaxis VTE prophylaxis: pharmacologic ordered (Heparin 5000 units subQ q.12 hours.) Hospitalist MIPS Heart Failure (Exclusion) Patient has history of Heart Transplant or Left Ventricular Assistive Device?: No IF YES, STOP HERE Heart Failure (Qualifier) Patient has current or prior documentation of LVEF less than or equal to 40%, or mod/servere depressed LVSF?: No IF NO, STOP HERE
[2025-02-17] MEDS: HEPARIN SODIUM LOCK FLUSH 500 UNITS/5 ML SYRINGE IV PUSH (10:19)
--- NOTE | 2025-02-19 13:06 | PCCDE ---
02/19/25: DM educator follow up call attempted, - Msg left including call back number.
== END 2025-02-17 11:29 | disposition home or self-care (01) | DRG 637 ==
LOC: ANHED 16:37 → ANHICU 21:23 → ANH2MED 01-31 09:54
PROVIDERS: General Practice; Internal Medicine; Internal Medicine Nephrology; Nurse Practitioner; Physician Assistant; Admitting Provider Internal Medicine; Emergency Provider Emergency Medicine; PCP Family Medicine
DX: E10.10 Type 1 diabetes mellitus with ketoacidosis without coma (principal); J18.9 Pneumonia, unspecified organism; N18.6 End stage renal disease; I12.0 Hypertensive chronic kidney disease with stage 5 chronic kidney disease or end stage renal disease; D63.1 Anemia in chronic kidney disease; E10.22 Type 1 diabetes mellitus with diabetic chronic kidney disease; E10.42 Type 1 diabetes mellitus with diabetic polyneuropathy; E10.43 Type 1 diabetes mellitus with diabetic autonomic (poly)neuropathy; E87.5 Hyperkalemia; F32.A Depression, unspecified; K31.84 Gastroparesis; Z99.2 Dependence on renal dialysis; Z79.85 Long-term (current) use of injectable non-insulin antidiabetic drugs; Z79.4 Long term (current) use of insulin; Z93.1 Gastrostomy status; Z93.4 Other artificial openings of gastrointestinal tract status; Z90.49 Acquired absence of other specified parts of digestive tract
CPT/HCPCS: 36415; 36600; 71045; 71046; 71250; 74176; 80048; 80053; 80069; 81001; 82375; 82805; 82947; 82948; 83050; 83735; 84100; 84145; 84484; 84703; 85018; 85025; 85027; 85610; 85730; 87040; 87086; 87641; 93005; 96366; 96374; 96375; 96376; 99285; A9270; G0257; G0378; J0612; J0696; J1171; J1200; J1630; J1642; J1644; J1815; J2405; J2470; J3360; J7030; J7060; Q5105

== ENCOUNTER 2025-02-22 08:49 | Inpatient (IN) | payer MEDICARE, MEDICAID, SELFPAY ==
--- OUTSIDE RECORDS SUMMARY | 2025-02-21 11:45 | XMS_ITS | Encounter Summary ---
Author Organization [facility] Healthcare Address [address] [place] [address] Care Team Providers Care Health And Safety Advisor Name Role Phone Andrei Chaves MD PhD Unavailable [phone] Olivia Phelps MD Unavailable [phone] Edgardo Aldridge MD Primary Care Provider [phone] Odilon Tellez MD Unavailable [phone] Ayaka Thomas MD Unavailable [phone] Yumi Jones NP Unavailable [phone] Odilon Tellez MD Unavailable [phone] Reason for Visit * Reason Comments Pain Encounter Details Date Type Department Care Team (Late st Contact Info) Description 02/21/2025 11:45 AM FILM EDITOR Office Visit [facility] Medical Group Orthopedics and Sports Medicine [facility] [address] [place] [phone] Sussy Garcia PA [address] [place] [id number] Right ankle pain, unspecified chronicity (Primary Dx); Arthritis of right midfoot; Acquired pes planovalgus of right foot; Arthrosis of right ankle Social History Tobacco Use Types Packs/Day Years [...] often do you attend chur ch or taoism services? Never 11/07/2024 Do you belong to any clubs o r organizations such as oriental orthodox groups, unions, fraternal or athletic groups, or [...] Date Recorded PHQ-2 Total Score 0 01/09/2025 [facility] [...] any time in the past 12 m [facility], were you homeless or living [...] often do you attend chur ch or taoism services? Never 01/17/2025 Do you belong to any clubs o r organizations such as oriental orthodox groups, unions, fraternal or athletic groups, or [...] any time in the past 12 m [facility], were you homeless or living in a snf (including now)? No 01/17/2025 [facility] Utilities Answer Date Recorded In the [...] on file Legal Sex Female 9:16 AM FILM EDITOR Gender Identity Not on file Sexual Orientation Not on file documented as of this encounter Last Filed Vital Signs Vital Sign Reading Time Taken Comments Blood Pressure - - Pulse - - Temperature - - Respiratory Rate - - Oxygen Saturation - - Inhaled Oxygen Concentration - - Weight 68 kg (150 lb) 02/21/2025 11:55 AM FILM EDITOR Height 162.6 cm (5' 4) 02/21/2025 11:55 AM FILM EDITOR Body Mass Index 25.75 02/21/2025 11:55 AM FILM EDITOR documented in this encounter Plan of Treatment Not on file documented as of this encounter Visit Diagnoses Diagnosis Right ankle pain, unspecified chronicity- Primary Arthritis of right midfoot Acquired pes planovalgus of right foot Arthrosis of right ankle documented in this encounter Additional Health Concerns Infection Onset Date Last Indicated 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 Source: [facility] - [facility]. 08/20/2024 CP-NEWBORN PHOTOGRAPHER Comment:Added from external infection. Source: [facility] - [facility]. Kleb pneumo [facility] 10/31/2024 10/31/2024 documented as of this encounter Care Teams Health And Safety Advisor Relationship Specialty Start Date End Date Edgardo Aldridge MD [address] [facility] [place] [id number] PCP - General Family Medicine 04/02/23 Andrei Chaves MD PhD [address] [facility] [address] [place] [address] Referring Physician General Surgery 03/17/23 Olivia Phelps MD [address] [place] [address] Consulting Physician Nephrology 03/17/23 Odilon Tellez MD [address] [place] [address] Referring Physician Nephrology 11/12/23 Ayaka Thomas MD [address] [place] [address] Fellow Internal Medicine 12/17/23 Yumi Jones TRUCK ENGINE ASSEMBLER [address] [facility] [address] [place] [address] Nurse Practitioner Hospice and Palliative Medicine 08/16/23 Odilon Tellez MD [address] [facility] [address] [place] [address] Consulting Physician Nephrology 12/05/24 documented as of this encounter
--- OUTSIDE RECORDS SUMMARY | 2025-02-21 11:45 | XMS_ITS | Encounter Summary ---
Author Organization [facility] Healthcare Address [address] [place] [address] Care Team Providers Care Bridge Crane Operator Name Role Phone Andrei Chaves MD PhD Unavailable [phone] Olivia Phelps MD Unavailable [phone] Edgardo Aldridge MD Primary Care Provider Odilon Tellez MD Unavailable [phone] Ayaka Thomas MD Unavailable [phone] Yumi Jones NP Unavailable [phone] Odilon Tellez MD Unavailable [phone] Reason for Visit * Reason Comments Pain Encounter Details Date Type Department Care Team (Late st Contact Info) Description 02/21/2025 11:45 AM DISK RECOATER Office Visit [facility] Medical Group Orthopedics and Sports Medicine [facility] [address] [place] [phone] Sussy Garcia PA [address] [place] [phone] Right ankle pain, unspecified chronicity (Primary [...] any clubs o r organizations such as methodist groups, unions, fraternal or athletic groups, or [...] Date Recorded PHQ-2 Total Score 0 01/09/2025 [facility] [...] slept in a fdc (including now)? No 08/30/2023 PHQ-9 Answer Date [...] time in the past 12 m [facility], were you homeless or living in a fdc (including now)? No 11/07/2024 Social Connection and [...] any clubs o r organizations such as methodist groups, unions, fraternal or athletic groups, or [...] any time in the past 12 m [facility], were you homeless or living in a fdc (including now)? No 01/17/2025 [facility] Utilities Answer Date Recorded In the [...] on file Legal Sex Female 9:16 AM DISK RECOATER Gender Identity Not on file Sexual Orientation Not on file documented as of this encounter Last Filed Vital Signs Vital Sign Reading Time Taken Comments Blood Pressure - - Pulse - - Temperature - - Respiratory Rate - - Oxygen Saturation - - Inhaled Oxygen Concentration - - Weight 68 kg (150 lb) 02/21/2025 11:55 AM DISK RECOATER Height 162.6 cm (5' 4) 02/21/2025 11:55 AM DISK RECOATER Body Mass Index 25.75 02/21/2025 11:55 AM DISK RECOATER documented in this encounter Plan of Treatment Not on file documented as of this encounter Visit Diagnoses Diagnosis Right ankle pain, unspecified chronicity- Primary Arthritis of right midfoot Acquired pes planovalgus of right foot Arthrosis of right ankle documented in this encounter Additional Health Concerns Infection Onset Date Last Indicated 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 Source: [facility]. 08/20/2024 CP-HORSE RACER Comment:Added from external infection. Source: [facility] - [facility]. Kleb pneumo [facility] 10/31/2024 10/31/2024 documented as of this encounter Care Teams Bridge Crane Operator Relationship Specialty Start Date End Date Edgardo Aldridge MD [address] [facility] [address] [place] [id number] PCP - General Family Medicine 04/02/23 Andrei Chaves MD PhD [address] [facility] [address], [place] [address] Referring Physician General Surgery 03/17/23 Olivia Phelps MD [address] [facility] [address] [place] [address] Consulting Physician Nephrology 03/17/23 Odilon Tellez MD [address] [facility] [address] [place] [address] Referring Physician Nephrology 11/12/23 Ayaka Thomas MD [address] [facility] [address] [place] [address] Fellow Internal Medicine 12/17/23 Yumi Jones HEALTH EQUIPMENT SERVICER [address] [facility] [address] [address] [place] [address] Nurse Practitioner Hospice and Palliative Medicine 08/16/23 Odilon Tellez MD [address] [facility] [address] [place] [address] Consulting Physician Nephrology 12/05/24 documented as of this encounter
[2025-02-22] VITALS (24 sets, daily range): BP systolic 184–223; BP diastolic 101–137; PULSE 91–123; RESP 12–28; TEMP 36.1–36.2; O2SAT 96–100; BMI 25.7
--- NOTE | ~2025-02-22 | CT_ITS ---
EXAM/PROCEDURE: CT abdomen pelvis w con HISTORY: abd pain(initially epigastric, now generalized) COMPARISON: February 04, 2025 TECHNIQUE: Contrast-enhanced CT of the abdomen and pelvis performed. FINDINGS: The bowel gas pattern is not obstructed with no free air or free fluid or pneumatosis seen. Mild diffuse wall thickening appears to be present in the large intestine and possibly some of the loops of small bowel. No drainable fluid collection. Percutaneous gastrojejunostomy tube unchanged. Cholecystectomy clips. Vascular calcification in the kidneys bilaterally and probable 4 mm nonobstructing upper pole right kidney stone. No hydroureteronephrosis. Urinary bladder appears normal though is mildly distended. Anteflex uterus and adnexal regions unremarkable. No bulky lymphadenopathy or mass is seen. Aorta normal in size. Aeration of the left lung base slightly improved with persisting atelectatic and mild consolidative changes. Mild wall thickening in the distal esophagus noted. Partially visualized wire catheter in the right heart. IMPRESSION: 1. Mild wall thickening in the small and large bowel as well as the distal esophagus could be associated with third spacing; early or mild inflammatory or infectious changes may have a similar appearance. Correlate clinically. 2. The urinary bladder is mildly distended. No acute surgical abnormality identified. 3. Slightly improved aeration in the left lung base. Reviewed, dictated and finalized at location A. UM BOTTLE ASSEMBLER IMPRESSION: 1. Mild wall thickening in the small and large bowel as well as the distal esop hagus could be associated with third spacing; early or mild inflammatory or inf ectious changes may have a similar appearance. Correlate clinically. 2. The urinary bladder is mildly distended. No acute surgical abnormality ident ified. 3. Slightly improved aeration in the left lung base.
--- NOTE | ~2025-02-22 | XR_ITS ---
Examination: XR chest 1V portable Clinical History: epigastric abd pain, hypertensive Comparison: 02/02/2025 Technique: Portable AP Findings: Left MediPort, right permacath. Heart size normal. Lungs clear. No acute bony abnormality. IMPRESSION: 1. No acute cardiopulmonary findings given portable technique. Reviewed, dictated and finalized at location R. TRONICS WORKER
--- NOTE | 2025-02-22 10:11 | ED.NAVMDI ---
HPI - Nausea/Vomiting/Diarrhea General Chief complaint: Nausea/Vomiting/Diarrhea Stated complaint: abd pain, n/v Time Seen by Provider: 02/22/25 09:41 Source: patient Mode of arrival: ambulatory Limitations: no limitations History of Present Illness HPI Narrative: Shannan presents with abdominal pain as well as nausea and vomting. Abdominal pain had been epigastric, now diffuse. Symptoms started 3 d ago. No sick contacts. Has a feeding tube due to gastroparesis due to insulin dependent diabetes mellitus. This was placed at [place] approximately 1 month ago. No issues with the feeding tube itself but she is frustrated as she thought having this placed would help her chronic symptoms. Meeting with palliative care Wednesday to discuss symptom control and being able to get pain and other medications like Benadryl at home. DOes not use marijuana. Has a headache. Blood sugars have been in the 300s. LBM this morning; diarrhea but no constipation or blood. Other abdominal surgery includes cholecystectomy. No fevers but chills. DAMIAN 4 days ago. Has a little appetite. Does tube feeds 6-10pm, Nepro 4.5. Her long acting insulin is 25U , last given last night. Short acting is sliding scale, none today; yesterday was last dose. Patient is on hemodialysis for end-stage renal disease. She typically goes on Tuesdays and Saturdays. She missed Wednesday because she did not feel well. They called her and she went in yesterday and had a full run, 3 hours. They noted she did not have to worry about dialysis today as she was below her dry weight. Related Data Home Medications ?Medication ?Instructions ?Recorded ?Confirmed ?Last Taken ?Type insulin lispro 100 unit/mL 1 sliding scale dose subcut PRN 06/02/22 02/22/25 02/21/25 History subcutaneous pen losartan 25 mg tablet 25 mg PO DAILY 06/02/22 02/22/25 02/21/25 History amlodipine 10 mg tablet 10 mg PO DAILY 01/01/25 02/22/25 02/21/25 History carvedilol 12.5 mg tablet 12.5 mg PO Q12H 01/01/25 02/22/25 02/21/25 History escitalopram oxalate 10 mg tablet 10 mg PO DAILY 01/01/25 02/22/25 02/21/25 History gabapentin 100 mg capsule 100 mg PO TID 01/01/25 02/22/25 02/21/25 History glucagon 0.5 mg/0.1 mL 0.5 mg subcut PRN PRN hypoglycemia 01/01/25 02/22/25 02/21/25 History subcutaneous auto-injector (Gvoke HypoPen 2-Pack) metoprolol succinate 200 mg 200 mg PO DAILY 01/01/25 02/22/25 02/21/25 History tablet,extended release 24 hr Allergies Allergy/AdvReac Type Severity Reaction Status Date / Time metoclopramide (From Reglan) Allergy Intermediate Muscle Verified 02/22/25 18:28 Spasms trimethobenzamide (From Allergy Intermediate hives Verified 02/22/25 18:28 Tigan) hydralazine Allergy Hives Verified 02/22/25 18:28 [facility] [place] Past Medical History Medical History (Updated 02/23/25 @ 15:51 by Grace Collins APRN) Anemia in chronic kidney disease Diabetic gastroparesis Port-A-Cath in place Type 1 diabetes Diagnosed at age 7 Depression Surgical History Surgical History S/P dialysis catheter insertion (~2022) Status post insertion of percutaneous endoscopic gastrostomy (PEG) tube For gastric drainage Status post jejunostomy (12/2024) For feeds History of cholecystectomy Family History Family History Other Family history of cardiovascular disease Social History Social History Social History: She is not and does not have any children. She lives with her mother and is on disability. She is a lifelong nonsmoker and does not drink alcohol or use illicit substances. Code status: Full code Surrogate decision maker: Mother Smoking status: Never smoker Alcohol intake: never Substance use: never Substance use type: does not use Lack of Transportation: No Lack of Food: Never True Current Housing: I Have Housing Concerned About Future Housing: No Difficulty Paying Gas/Electric Bills: No Difficulty Paying for Meds: No Currently Unemployed: YES Education: High School Diploma/GED Difficulty w/ Childcare or Family Care: No Gender identity (if verbalized by the patient): Female Spiritual care concerns: No Exam Narrative: GENERAL: Well-appearing, well-nourished, in mild acute distress. HEAD: Normocephalic, atraumatic. EYES: Non injected, non icteric ENT: Nares clear, no rhinorrhea or epistaxis. Gross auditory acuity intact. Moinst mucous membranes NECK: Supple. No meningismus. CHEST: Speaking in full sentences. No respiratory distress. HEART: Regular rate and rhythm. . ABDOMEN: Soft, nondistended. No rigidity or guarding. Not peritoneal. Feeding tube in place, clean/dry/intact. EXTREMITIES: Normal range of motion. No lower extremity edema. SKIN: Warm, dry, no rash. NEURO: No focal deficits. Alert and oriented. Answering questions. Following commands. Normal speech without aphasia or dysarthria. PSYCH: Congruent mood and affect. Course Vital Signs Vital signs: Vital Signs Temperature 97.0 F L 02/22/25 08:54 Pulse Rate 112 H 02/22/25 08:54 Respiratory Rate 16 02/22/25 08:54 Blood Pressure 184/112 H 02/22/25 08:54 Pulse Oximetry 100 02/22/25 08:54 Oxygen Delivery Room Air 02/22/25 08:54 Temperature 98.4 F 02/25/25 15:32 Pulse Rate 84 02/25/25 15:32 Respiratory Rate 16 02/25/25 15:32 Blood Pressure 130/76 02/25/25 15:32 Pulse Oximetry 98 02/25/25 15:32 Oxygen Delivery Room Air 02/25/25 09:00 MDM - Nausea/Vomiting/Diarrhea MDM Narrative Medical decision making narrative: 29yo female patient with insulin dependent diabetes mellitus complicated by gastroparesis now status post feeding tube (1 month ago [facility]). Also with a Portacath on dialysis presents with epigastric followed by diffuse abdominal pain associated with nausea and vomiting and also had some diarrhea. In the emergency department she is afebrile with vital signs notable for hypertension and tachycardia. Patient given 0.5 mg Dilaudid as well as 25 mg diphenhydramine. CBC without marked abnormalities including no leukocytosis anemia thrombocytopenia. Still having pain per the nurse, 1 mg Dilaudid ordered. Chemistry consistent with ESRD for which she is on dialysis. Patient reassessed at 12:20 p.m. and she reports that her pain is slightly improved although still 7/10 in severity. She notes that normally if her pain gets on a 4/10 in severity this is tolerable. Will order a small IV fluid bolus of 500 cc in addition to small dose Haldol and additional 25 mg of diphenhydramine. She has chronic transaminitis although ALT is more elevated today. She is status post cholecystectomy although I did notice that a lipase had accidentally not been ordered as part of protocol so this is ordered now. She has hyperglycemia with an anion gap and although CO2 is slightly abnormal she is not frankly acidotic as it is greater than 15. She has not had her sliding scale insulin today; will give small dose. Sodium corrects of the setting of her hyperglycemia. test negative. Viral swab negative. CT as below. She is given Bentyl based on these nonspecific findings. Urinalysis with rare bacteria. There are some other abnormalities. I suspect this to be due to stasis of urine more than UTI, especially given she denies any dysuria, hematuria, urgency or frequency and only urinates twice in the setting of her kidney function. Urine culture is in process but will defer giving antibiotics at this time. Discussed this with patient she concurs. Heart rate has improved to 103. Patient is reassessed and notes her pain is much better but nausea persists. When patient is reassessed approximately 4:00 p.m. she notes that she is back to having significant pain and nausea. Will admit for pain/nausea /symptom control. Discussed with financial institution branch manager hospitalist KAUSHAL Weathers. Consult order placed for nephrology to place on HD schedule. While patient was still in the ED, I did note that a critical hypoglycemia of 38mg/dL resulted. I immediately went to bedside and patient is awake alert texting on her phone. I discussed with the tech who notes that she immediately informed the nurse about this result and the RN gave 1/2 an amp of D50 and is informing the in-patient nursing team. Hypoglycemia protocol orders are in place. Repeat POC 109mg/dL. Differential Diagnosis Differential diagnosis: Likely traveler's diarrhea, food poisoning, gastroenteritis, clostridium difficile infection, drug-induced nausea and vomiting, dehydration and other (hyperglycemia; DKA/ HHS; considered feeding tube malfunction; pancreatitis; gastritis) Lab Data 02/25/25 04:59 02/25/25 04:59 Labs: Lab Results 11/06/25 11/06/25 11/06/25 Range/Units 10:07 10:08 10:20 WBC 5.5 (4.5-10.0) K/mm3 RBC 4.55 (4.2-5.4) M/mm3 Hgb 12.9 (12.0-15.0) g/dL Hct 40.2 (37.0-47.0) % MCV 88.4 D (80-100) fl MCH 28.4 (26-34) pg MCHC 32.1 (32-36) g/dl RDW 15.7 H (11.5-14.5) % Plt Count 239 (150-375) k/mm3 MPV 10.4 (7.4-10.4) fl Immature Gran % (Auto) 0.2 (0-0.5) % Neut % (Auto) 69.6 (45.5-73.1) % Lymph % (Auto) 22.0 (18.3-44.2) % Pacific % (Auto) 6.6 (2.6-8.5) % Eos % (Auto) 1.1 (0-4.4) % Baso % (Auto) 0.5 (0.2-1.2) % Lymph # (Auto) 1.20 (0.9-3.2) K/mm3 Pacific # (Auto) 0.4 (0.1-0.6) K/mm3 Eos # (Auto) 0.1 (0-0.3) K/mm3 Baso # (Auto) 0.0 (0.0-0.1) K/mm3 Abs Immat Gran (auto) 0.01 (0.00-0.031) K/mm3 Absolute Neuts (auto) 3.8 (1.3-6.7) K/mm3 Absolute Nucleated RBC 0.000 (0.0-0.012) K/mm3 Nucleated RBC % 0.0 (0.0-0.2) % Sodium 136 L (137-145) mmol/L Potassium 5.2 H (3.4-5.0) mmol/L Chloride 98 (98-107) mmol/L Carbon Dioxide 19 L (22-30) mmol/L Anion Gap 19 H (4-12) mmol/L BUN 35 H D (7-17) mg/dL Creatinine 7.61 H (0.7-1.0) mg/dL Estim Creat Clear Calc 9 ml/min Estimated GFR 6 L (59 - ) Glucose 171 H (65-110) mg/dL POC Capillary Glucose (65-105) mg/dl Calcium 8.3 L (8.4-10.2) mg/dL Phosphorus 5.9 H (2.5-4.5) mg/dL Magnesium 2.3 (1.6-2.3) mg/dL Total Bilirubin 1.1 (0.2-1.3) mg/dL AST 49 H (14-36) U/L ALT 119 H (6-35) U/L Alkaline Phosphatase 221 H (38-126) U/L Total Protein 8.4 H (6.3-8.2) g/dL Albumin 4.8 (3.5-5.1) g/dL Lipase 63 (23-300) U/L Beta-Hydroxybutyrate/Acetoacetate 4.02 H (0.02-0.27) mmol/L Serum HCG, Qual Negative Urine Color (Yellow) Urine Appearance (Clear) Urine pH (5.0-9.0) Ur Specific Cobb (1.001-1.035) Urine Protein (Negative) mg/dL Urine Glucose (UA) (Negative) mg/dL Urine Ketones (Negative) mg/dL Ur Blood (Man) (Negative) Urine Nitrate (Negative) Urine Bilirubin (Negative) Urine Urobilinogen (<2.0) mg/dL Add Ur Microanalysis Leukocyte Esterase Rfl (Negative) BETHANY/UL Urine RBC (0-2) /hpf Urine WBC (0-3) /hpf Ur Squamous Epith Cells (Few) /hpf Urine Bacteria /hpf Urine Casts Nasal MRSA (PCR) (NOT DETECTE) Influenza A (RT-PCR) (Negative) Influenza B (RT-PCR) (Negative) SARS-CoV-2 RNA (RT-PCR) (Negative) 02/22/25 02/22/25 02/22/25 Range/Units 12:30 13:51 17:27 WBC (4.5-10.0) K/mm3 RBC (4.2-5.4) M/mm3 Hgb (12.0-15.0) g/dL Hct (37.0-47.0) % MCV (80-100) fl MCH (26-34) pg MCHC (32-36) g/dl RDW (11.5-14.5) % Plt Count (150-375) k/mm3 MPV (7.4-10.4) fl Immature Gran % (Auto) (0-0.5) % Neut % (Auto) (45.5-73.1) % Lymph % (Auto) (18.3-44.2) % Pacific % (Auto) (2.6-8.5) % Eos % (Auto) (0-4.4) % Baso % (Auto) (0.2-1.2) % Lymph # (Auto) (0.9-3.2) K/mm3 Pacific # (Auto) (0.1-0.6) K/mm3 Eos # (Auto) (0-0.3) K/mm3 Baso # (Auto) (0.0-0.1) K/mm3 Abs Immat Gran (auto) (0.00-0.031) K/mm3 Absolute Neuts (auto) (1.3-6.7) K/mm3 Absolute Nucleated RBC (0.0-0.012) K/mm3 Nucleated RBC % (0.0-0.2) % Sodium (137-145) mmol/L Potassium (3.4-5.0) mmol/L Chloride (98-107) mmol/L Carbon Dioxide (22-30) mmol/L Anion Gap (4-12) mmol/L BUN (7-17) mg/dL Creatinine (0.7-1.0) mg/dL Estim Creat Clear Calc ml/min Estimated GFR (59 - ) Glucose (65-110) mg/dL POC Capillary Glucose 38 L* (65-105) mg/dl Calcium (8.4-10.2) mg/dL Phosphorus (2.5-4.5) mg/dL Magnesium (1.6-2.3) mg/dL Total Bilirubin (0.2-1.3) mg/dL AST (14-36) U/L ALT (6-35) U/L Alkaline Phosphatase (38-126) U/L Total Protein (6.3-8.2) g/dL Albumin (3.5-5.1) g/dL Lipase (23-300) U/L Beta-Hydroxybutyrate/Acetoacetate (0.02-0.27) mmol/L Serum HCG, Qual Urine Color Yellow (Yellow) Urine Appearance Clear (Clear) Urine pH 7.5 (5.0-9.0) Ur Specific Cobb 1.017 (1.001-1.035) Urine Protein 4+ H (Negative) mg/dL Urine Glucose (UA) 2+ H (Negative) mg/dL Urine Ketones Trace H (Negative) mg/dL Ur Blood (Man) 1+ H (Negative) Urine Nitrate Negative (Negative) Urine Bilirubin Negative (Negative) Urine Urobilinogen 0.2 (<2.0) mg/dL Add Ur Microanalysis Reviewed Leukocyte Esterase Rfl Trace H (Negative) BETHANY/UL Urine RBC 11-20 H (0-2) /hpf Urine WBC 6-10 H (0-3) /hpf Ur Squamous Epith Cells Few (Few) /hpf Urine Bacteria Rare /hpf Urine Casts >20 Nasal MRSA (PCR) (NOT DETECTE) Influenza A (RT-PCR) Negative (Negative) Influenza B (RT-PCR) Negative (Negative) SARS-CoV-2 RNA (RT-PCR) Negative (Negative) 02/22/25 02/22/25 02/22/25 Range/Units 18:01 18:53 20:46 WBC (4.5-10.0) K/mm3 RBC (4.2-5.4) M/mm3 Hgb (12.0-15.0) g/dL Hct (37.0-47.0) % MCV (80-100) fl MCH (26-34) pg MCHC (32-36) g/dl RDW (11.5-14.5) % Plt Count (150-375) k/mm3 MPV (7.4-10.4) fl Immature Gran % (Auto) (0-0.5) % Neut % (Auto) (45.5-73.1) % Lymph % (Auto) (18.3-44.2) % Pacific % (Auto) (2.6-8.5) % Eos % (Auto) (0-4.4) % Baso % (Auto) (0.2-1.2) % Lymph # (Auto) (0.9-3.2) K/mm3 Pacific # (Auto) (0.1-0.6) K/mm3 Eos # (Auto) (0-0.3) K/mm3 Baso # (Auto) (0.0-0.1) K/mm3 Abs Immat Gran (auto) (0.00-0.031) K/mm3 Absolute Neuts (auto) (1.3-6.7) K/mm3 Absolute Nucleated RBC (0.0-0.012) K/mm3 Nucleated RBC % (0.0-0.2) % Sodium (137-145) mmol/L Potassium (3.4-5.0) mmol/L Chloride (98-107) mmol/L Carbon Dioxide (22-30) mmol/L Anion Gap (4-12) mmol/L BUN (7-17) mg/dL Creatinine (0.7-1.0) mg/dL Estim Creat Clear Calc ml/min Estimated GFR (59 - ) Glucose (65-110) mg/dL POC Capillary Glucose 109 H 45 L* (65-105) mg/dl Calcium (8.4-10.2) mg/dL Phosphorus (2.5-4.5) mg/dL Magnesium (1.6-2.3) mg/dL Total Bilirubin (0.2-1.3) mg/dL AST (14-36) U/L ALT (6-35) U/L Alkaline Phosphatase (38-126) U/L Total Protein (6.3-8.2) g/dL Albumin (3.5-5.1) g/dL Lipase (23-300) U/L Beta-Hydroxybutyrate/Acetoacetate (0.02-0.27) mmol/L Serum HCG, Qual Urine Color (Yellow) Urine Appearance (Clear) Urine pH (5.0-9.0) Ur Specific Cobb (1.001-1.035) Urine Protein (Negative) mg/dL Urine Glucose (UA) (Negative) mg/dL Urine Ketones (Negative) mg/dL Ur Blood (Man) (Negative) Urine Nitrate (Negative) Urine Bilirubin (Negative) Urine Urobilinogen (<2.0) mg/dL Add Ur Microanalysis Leukocyte Esterase Rfl (Negative) BETHANY/UL Urine RBC (0-2) /hpf Urine WBC (0-3) /hpf Ur Squamous Epith Cells (Few) /hpf Urine Bacteria /hpf Urine Casts Nasal MRSA (PCR) Not detected (NOT DETECTE) Influenza A (RT-PCR) (Negative) Influenza B (RT-PCR) (Negative) SARS-CoV-2 RNA (RT-PCR) (Negative) 02/22/25 02/23/25 02/23/25 Range/Units 21:09 00:38 03:35 WBC (4.5-10.0) K/mm3 RBC (4.2-5.4) M/mm3 Hgb (12.0-15.0) g/dL Hct (37.0-47.0) % MCV (80-100) fl MCH (26-34) pg MCHC (32-36) g/dl RDW (11.5-14.5) % Plt Count (150-375) k/mm3 MPV (7.4-10.4) fl Immature Gran % (Auto) (0-0.5) % Neut % (Auto) (45.5-73.1) % Lymph % (Auto) (18.3-44.2) % Pacific % (Auto) (2.6-8.5) % Eos % (Auto) (0-4.4) % Baso % (Auto) (0.2-1.2) % Lymph # (Auto) (0.9-3.2) K/mm3 Pacific # (Auto) (0.1-0.6) K/mm3 Eos # (Auto) (0-0.3) K/mm3 Baso # (Auto) (0.0-0.1) K/mm3 Abs Immat Gran (auto) (0.00-0.031) K/mm3 Absolute Neuts (auto) (1.3-6.7) K/mm3 Absolute Nucleated RBC (0.0-0.012) K/mm3 Nucleated RBC % (0.0-0.2) % Sodium (137-145) mmol/L Potassium (3.4-5.0) mmol/L Chloride (98-107) mmol/L Carbon Dioxide (22-30) mmol/L Anion Gap (4-12) mmol/L BUN (7-17) mg/dL Creatinine (0.7-1.0) mg/dL Estim Creat Clear Calc ml/min Estimated GFR (59 - ) Glucose (65-110) mg/dL POC Capillary Glucose 110 H 185 H 310 H (65-105) mg/dl Calcium (8.4-10.2) mg/dL Phosphorus (2.5-4.5) mg/dL Magnesium (1.6-2.3) mg/dL Total Bilirubin (0.2-1.3) mg/dL AST (14-36) U/L ALT (6-35) U/L Alkaline Phosphatase (38-126) U/L Total Protein (6.3-8.2) g/dL Albumin (3.5-5.1) g/dL Lipase (23-300) U/L Beta-Hydroxybutyrate/Acetoacetate (0.02-0.27) mmol/L Serum HCG, Qual Urine Color (Yellow) Urine Appearance (Clear) Urine pH (5.0-9.0) Ur Specific Cobb (1.001-1.035) Urine Protein (Negative) mg/dL Urine Glucose (UA) (Negative) mg/dL Urine Ketones (Negative) mg/dL Ur Blood (Man) (Negative) Urine Nitrate (Negative) Urine Bilirubin (Negative) Urine Urobilinogen (<2.0) mg/dL Add Ur Microanalysis Leukocyte Esterase Rfl (Negative) BETHANY/UL Urine RBC (0-2) /hpf Urine WBC (0-3) /hpf Ur Squamous Epith Cells (Few) /hpf Urine Bacteria /hpf Urine Casts Nasal MRSA (PCR) (NOT DETECTE) Influenza A (RT-PCR) (Negative) Influenza B (RT-PCR) (Negative) SARS-CoV-2 RNA (RT-PCR) (Negative) 02/23/25 Range/Units 07:46 WBC (4.5-10.0) K/mm3 RBC (4.2-5.4) M/mm3 Hgb (12.0-15.0) g/dL Hct (37.0-47.0) % MCV (80-100) fl MCH (26-34) pg MCHC (32-36) g/dl RDW (11.5-14.5) % Plt Count (150-375) k/mm3 MPV (7.4-10.4) fl Immature Gran % (Auto) (0-0.5) % Neut % (Auto) (45.5-73.1) % Lymph % (Auto) (18.3-44.2) % Pacific % (Auto) (2.6-8.5) % Eos % (Auto) (0-4.4) % Baso % (Auto) (0.2-1.2) % Lymph # (Auto) (0.9-3.2) K/mm3 Pacific # (Auto) (0.1-0.6) K/mm3 Eos # (Auto) (0-0.3) K/mm3 Baso # (Auto) (0.0-0.1) K/mm3 Abs Immat Gran (auto) (0.00-0.031) K/mm3 Absolute Neuts (auto) (1.3-6.7) K/mm3 Absolute Nucleated RBC (0.0-0.012) K/mm3 Nucleated RBC % (0.0-0.2) % Sodium (137-145) mmol/L Potassium (3.4-5.0) mmol/L Chloride (98-107) mmol/L Carbon Dioxide (22-30) mmol/L Anion Gap (4-12) mmol/L BUN (7-17) mg/dL Creatinine (0.7-1.0) mg/dL Estim Creat Clear Calc ml/min Estimated GFR (59 - ) Glucose (65-110) mg/dL POC Capillary Glucose 240 H (65-105) mg/dl Calcium (8.4-10.2) mg/dL Phosphorus (2.5-4.5) mg/dL Magnesium (1.6-2.3) mg/dL Total Bilirubin (0.2-1.3) mg/dL AST (14-36) U/L ALT (6-35) U/L Alkaline Phosphatase (38-126) U/L Total Protein (6.3-8.2) g/dL Albumin (3.5-5.1) g/dL Lipase (23-300) U/L Beta-Hydroxybutyrate/Acetoacetate (0.02-0.27) mmol/L Serum HCG, Qual Urine Color (Yellow) Urine Appearance (Clear) Urine pH (5.0-9.0) Ur Specific Cobb (1.001-1.035) Urine Protein (Negative) mg/dL Urine Glucose (UA) (Negative) mg/dL Urine Ketones (Negative) mg/dL Ur Blood (Man) (Negative) Urine Nitrate (Negative) Urine Bilirubin (Negative) Urine Urobilinogen (<2.0) mg/dL Add Ur Microanalysis Leukocyte Esterase Rfl (Negative) BETHANY/UL Urine RBC (0-2) /hpf Urine WBC (0-3) /hpf Ur Squamous Epith Cells (Few) /hpf Urine Bacteria /hpf Urine Casts Nasal MRSA (PCR) (NOT DETECTE) Influenza A (RT-PCR) (Negative) Influenza B (RT-PCR) (Negative) SARS-CoV-2 RNA (RT-PCR) (Negative) Imaging Data Radiologist's impression: IMPRESSION: 1. No acute cardiopulmonary findings given portable technique. IMPRESSION: 1. Mild wall thickening in the small and large bowel as well as the distal esophagus could be associated with third spacing; early or mild inflammatory or infectious changes may have a similar appearance. Correlate clinically. 2. The urinary bladder is mildly distended. No acute surgical abnormality identified. 3. Slightly improved aeration in the left lung base. Discharge Plan Discharge Clinical Impression: Nausea & vomiting, Abdominal pain, Hyperphosphatemia due to chronic kidney disease, ESRD on hemodialysis, Abnormal urinalysis, Bowel wall thickening Patient Disposition: Still a Patient Condition: Stable Time of Disposition: 16:24
[2025-02-22 10:23] LABS: Hematocrit 40.2 % (37.0-47.0); Hemoglobin 12.9 g/dL (12.0-15.0); Immature Granulocyte Percent A 0.2 % (0-0.5); Lymphocytes Absolute Auto 1.20 K/mm3 (0.9-3.2); Mean Corpuscular HGB Conc 32.1 g/dl (32-36); Mean Corpuscular Hemoglobin 28.4 pg (26-34); Mean Corpuscular Volume 88.4 fl (80-100); Nucleated Red Blood Cells Absolute Auto 0.000 K/mm3 (0.0-0.012); Nucleated Red Blood Cells Perc 0.0 % (0.0-0.2); Platelet Count Result 239 k/mm3 (150-375); Red Blood Count 4.55 M/mm3 (4.2-5.4); White Blood Count 5.5 K/mm3 (4.5-10.0)
[2025-02-22] MEDS: HYDROmorphone HCL INJ (*CRX) 1 MG/ML SYR 0.5 MG IV PUSH ×2 (10:36→16:51)
[2025-02-22 10:46] LABS: Beta-Hydroxybutyrate/Acetoace. 4.02 mmol/L (0.02-0.27)
[2025-02-22 10:48] LABS: Alanine Aminotransferase 119 U/L (6-35); Albumin Level 4.8 g/dL (3.5-5.1); Alkaline Phosphatase 221 U/L (38-126); Anion Gap 19 mmol/L (4-12); Aspartate Amino Transferase 49 U/L (14-36); Bilirubin,Total 1.1 mg/dL (0.2-1.3); Blood Urea Nitrogen 35 mg/dL (7-17); Calcium 8.3 mg/dL (8.4-10.2); Carbon Dioxide 19 mmol/L (22-30); Chloride 98 mmol/L (98-107); Estimated CRCL calculation 9 ml/min; Estimated Glomerular Filt Rate 6; Glucose 171 mg/dL (65-110); Magnesium 2.3 mg/dL (1.6-2.3); Potassium 5.2 mmol/L (3.4-5.0); Sodium 136 mmol/L (137-145); Total Protein 8.4 g/dL (6.3-8.2)
[2025-02-22 11:38] LABS: SPREG INTERNAL CONTROL Positive; Serum Qual hCG Negative
[2025-02-22] MEDS: FAMOTIDINE 20 MG/2 ML VIAL IV PUSH (12:06)
[2025-02-22] MEDS: HYDROmorphone HCL INJ (*CRX) 1 MG/ML SYR IV PUSH ×2 (12:06→19:15)
--- NOTE | 2025-02-22 12:26 | ECG_ITS ---
Test Date: 2025-02-22 17:33:10 Measurements Intervals Zoe Rate: 106 P: 55 VA: 320 QRS: 5 QRSD: 83 T: 55 QT: 367 QTc: 487 Interpretive Statements SINUS RHYTHM ARTIFACT Electronically Signed On 02-22-2025 18:01:31 [employer] by Claudy Natarajan D.O
[2025-02-22 12:39] LABS: Lipase 63 U/L (23-300)
[2025-02-22] MEDS: HALOPERIDOL LACTATE 5 MG/ML VIAL 2.5 MG IV PUSH ×2 (12:44→15:27)
[2025-02-22] MEDS: INSULIN ASPART (*BKC) 100 UNITS/ML SUB-Q (12:44)
[2025-02-22] MEDS: SODIUM CHLORIDE 0.9% IV 500 ML 999 ML IV CONT (12:44)
[2025-02-22 13:12] LABS: Influenza A QL RT-PCR Negative (Negative); Influenza B QL RT-PCR Negative (Negative); SARS-CoV-2 RNA PCR Negative (Negative)
[2025-02-22] MEDS: CENTRAL LINE FLUSH 10 ML IV PUSH ×2 (14:15→19:11)
[2025-02-22 14:23] LABS: Add Urine Microscopic? YES; Appearance Urine Clear (Clear); Glucose Urine UA 2+ mg/dL (Negative); Leukocyte Esterase Ur Trace LEU/UL (Negative); Need Manual Microscopic Reviewed; Nitrate Urine Negative (Negative); Non Pathogenic Casts >20; Specific Grav Ur 1.017 (1.001-1.035)
[2025-02-22] MEDS: DICYCLOMINE HCL 10 MG CAPSULE FEED TUBE (15:02)
[2025-02-22] MEDS: ONDANSETRON INJ 4 MG/2 ML VIAL IV PUSH (15:25)
[2025-02-22] MEDS: DEXTROSE 50% 25 GM/50 ML SYRINGE IV PUSH ×2 (17:30→20:52)
--- NOTE | 2025-02-22 17:30 | PC.NURSE ---
ACCUCHECK WAS 38. 1/2 AMP OF D50 GIVEN PER HYPOGLYCEMIA PROTOCOL. PT ALERT, NOT DIAPHORETIC, STATES HER SUGARS FLUCTUATE BUT NEVER THAT LOW ON A REGULAR BASIS.
--- OUTSIDE RECORDS SUMMARY | 2025-02-22 17:33 | XMS_ITS | Clinical Summary ---
Author Organization [facility] Address [address] [place] [address] Phone Care Team Providers [facility] Director Name Role Phone Eun Camacho Primary Care [...] - 144 mmol/L 09/04/2022 9:18 AM CDT [facility] POTASSIUM 4.7 3.5 - 5.1 mmol/L 09/04/2022 9:18 AM CDT [facility] CHLORIDE 96(L) 100 - 110 mmol/L 09/04/2022 9:18 AM CDT [facility] CO2, VENOUS 24 22 - 32 mmol/L 09/04/2022 9:18 AM CDT [facility] ANION GAP 23.7(H) 8.0 - 20.0 mmol/L 09/04/2022 9:18 AM CDT [facility] GLUCOSE 443(HH) 70 - 99 mg/dL 09/04/2022 9:18 AM CDT [facility] BUN 28(H) 6 - 20 mg/dL 09/04/2022 9:18 AM CDT [facility] CREATININE, BLOOD 2.94(H) 0.60 - 1.10 mg/dL 09/04/2022 9:18 AM CDT [facility] BUN/CREATININE RATIO 10(L) 12 - 20 ratio 09/04/2022 9:18 AM CDT [facility] TOTAL PROTEIN 8.9(H) 6.0 - 8.3 g/dL 09/04/2022 9:18 AM [facility] ALBUMIN 3.9 3.5 - 5.2 g/dL 09/04/2022 9:18 AM [facility] Comment: The colormetric methods used for the determination of Albumin may lead to falsely elevated test results in patients suffering from renal failure or insufficiency due to interference with other proteins. A/G RATIO 0.8(L) 1.0 - 2.0 09/04/2022 9:18 AM CDT [facility] CALCIUM 9.7 8.9 - 10.3 mg/dL 09/04/2022 9:18 AM [facility] T BILI 0.3 <=1.2 mg/dL 09/04/2022 9:18 AM [facility] SGOT (AST) 11 <=32 U/L 09/04/2022 9:18 AM [facility] SGPT (ALT) 18 <=41 U/L 09/04/2022 9:18 AM [facility] ALKALINE PHOSPHATASE 196(H) 35 - 105 U/L 09/04/2022 9:18 AM [facility] GFR, ESTIMATED 22(L) >=60 09/04/2022 9:18 AM [facility] Comment: Creatinine Clearance is the preferred criteria for selecting drug dose adjustments in renally impaired patients. The GFR is provided as additional pertinent clinical information. GFR is reported in mL/min/1.73 sq m. Calculation based on the Chronic Kidney Disease Epidemiology Collaboration (CKD- EPI) equation refit without adjustment for race. GFR, EST. 23(L) >=60 023 9:18 AM [facility] GFR, EST. NONAFRICAN 19(L) >=60 09/04/2022 9:18 AM [facility] Blood Venipuncture / Unknown 09/04/2022 8:08 AM CDT 09/04/2022 8:39 AM CDT us Giovanni Faith DO CHEMISTRY ORDERABLES Fi nal Result Performing Organization Address City/[facility]/ZIP Co de Phone Number [facility] [place] [address] * (ABNORMAL) Hemoglobin A1C (08/23/2022 9:39 PM CDT) HGB-A1C 9.0(H) 4.0 - 6.0 % 08/23/2022 10:04 PM CDT [facility] Est Average Glucose 211.6 mg/dL 08/23/2022 10:04 PM CDT [facility] Blood Venipuncture / Unknown 08/23/2022 9:39 PM CDT 08/23/2022 9:45 PM CDT Narrative [facility] - 08/23/2022 10:04 PM CDT HEMOGLOBIN A1C: DIABETIC PATIENTS: WELL-CONTROLLED: 6.2 - 7.0 INTERMEDIATE WELL-CONTROLLED: 7.0 - 9.0 POORLY-CONTROLLED: >9.0 us Celia Samuels APRN, RADIATION CONTROL TECHNICIAN CHEMISTRY ORDERABLES Final Result Performing Organization Address [facility] Co de Phone Number [facility] [place] [address] from Last 3 Months or Most Recently [...] measures to stabilize the patient. Care Teams [facility] Director Relationship Specialty Start Date End Date Eun Camacho PAC [address] [facility] [address] [place] [address] [place] [id number] PCP - General Family Medicine 06/28/22
--- OUTSIDE RECORDS SUMMARY | 2025-02-22 17:33 | XMS_ITS | Patient Health Record ---
Author Organization [facility] Address [address] [facility] [address] [place] [address] Care Team Providers Care Protection Officer Name Role Phone Daxa Hill Unavailable [phone] Reason For Referral No Information Plan Of Treatment No Information
--- OUTSIDE RECORDS SUMMARY | 2025-02-22 17:33 | XMS_ITS | Encounter Summary ---
Author Organization [facility] Address [facility] [place] [address] Care Team Providers Care Hand Router Operator Name Role Phone Lay Cota MD Primary Care Provider [phone] Eun Camacho Primary Care Provider [phone] None, Provider Primary Care Provider Unavaila [facility] Lay Cota MD Primary Care Provider [phone] Edgardo Aldridge MD Primary Care Provider [phone] Keely Ugalde EDUCATIONAL AUDIOLOGIST Unavailable [phone] Keely Ugalde EDUCATIONAL AUDIOLOGIST Unavailable [phone] Odilon Tellez MD Unavailable [phone] Leonardo Washburn MD Unavailable [phone] Young Vasquez MD Unavailable [phone] Andrei Chaves MD Unavailable [phone] Encounter Details Date Type Department Care Team (Late st Contact Info) Description 01/03/2020 Telephone [facility] [address] [place] [address] eR Yeager CNA Social History Tobacco Use Types [...] st Contact Info) Description 05/24/2025 10:20 AM CITY EDITOR Office Visit [facility] Mult[facility] [address] [place] [address] Leonardo Washburn MD [address] [place] [address] documented as of this encounter Goals Goal [...] Rule Out 02/21/2023 02/21/2023 02/21/2023 11:06 AM CITY EDITOR MRSA Comment:04/27/23 +MRSA Urine 10/23/23 +MRSA from [facility]. Added from external infection. Source: [facility]. 02/09/24 +MRSA Nares from [facility]. 05/08/24 +MRSA Nares 10/23/2023 12/04/2024 COVID-19 Rule Out 03/12/2024 03/12/2024 03/12/2024 3:51 PM CITY EDITOR COVID-19 Rule Out 04/04/2024 04/04/2024 04/04/2024 5:10 PM CITY EDITOR COVID-19 Rule Out 04/24/2024 04/24/2024 04/24/2024 8:24 PM CITY EDITOR RSV 04/24/2024 04/24/2024 05/04/2024 12:3 2 AM CITY EDITOR COVID-19 Rule Out 05/08/2024 05/08/2024 05/08/2024 4:15 PM CITY EDITOR Tuberculosis Rule-Out 05/09/2024 05/09/20242024 10:09 AM CITY EDITOR COVID-19 Rule Out 05/17/2024 05/17/2024 05/17/2024 4:44 PM CITY EDITOR Respiratory Rule Out 07/05/2024 07/05/2024 025 10:03 [...] documented as of this encounter Care Teams Hand Router Operator Relationship Specialty Start Date End Date Lay Cota MD PCP - General FAMILY PRACTICE 02/19/19 10/26/22 Eun Camacho PA PCP - General PHYSICIAN DECORATION CHECKER 10/27/22 11/18/22 None, Simona, PCP - General UNKNOWN PHYSICIAN SPECIALTY 11/19/22 12/09/22 Lay Cota MD PCP - General FAMILY PRACTICE 12/10/22 07/02/24 Edgardo Aldridge MD [address] [facility] [address] [place] [address] PCP - General FAMILY PRACTICE 07/03/24 Keely Ugalde APRN [address] [place] [address] PCP - Hospice Attending 10/06/24 Keely Ugalde APRN 1 [place] [address] Nurse Practitioner PALLIATIVE CARE 10/09/24 Odilon Tellez MD [address] [address] Consulting Physician NEPHROLOGY 11/17/24 Leonardo Washburn MD [address] [address] Consulting Physician Internal Medicine Pulmonary Disease 11/17/24 Young Vasquez MD [address] [facility] [address] [place] [address] GASTROENTEROLOGY 11/17/24 Andrei Chaves MD [address] [facility] [address] [place] [address] SURGERY 11/17/24 documented as of this encounter
--- OUTSIDE RECORDS SUMMARY | 2025-02-22 17:33 | XMS_ITS ---
Author Organization [facility] Address [address] [place] [address] Phone Care Team Providers Care Director Of Recruitment And Admissions Name Role Phone Eun Camacho Primary Care Provider Lindsey Chronic Condition Monitoring Status:Enrolled (Active) Start date:03/08/2024 Enrollment date:03/08/2024 Related social drivers of health:Intimate Partner Violence, Social Connections, Financial Resource Strain, Depression, Stress, Physical Activity, Food Insecurity, Transportation Needs, Housing Stability, Utilities Continued Care and Services Coordination
--- OUTSIDE RECORDS SUMMARY | 2025-02-22 17:33 | XMS_ITS | Encounter Summary ---
Author Organization [facility] Address [address] [place] [address] Care Team Providers Care Boarder Machine Name Role Phone Lay Villalta MD Primary Care Provider [phone] Edgardo Aldridge MD Primary Care Provider [phone] Encounter Details Date Type Department Care Team (Late st Contact Info) Description 07/17/2019 Lab Requisition [facility] [address] [place] [address] Unknown, Provider Social History Tobacco Use Types Packs/Day Years Used Date Smoking Tobacco: Never Smokeless Tobacco: Never Alcohol Use Standard Drinks/Week Comments No 0 (1 standard drink = 0.6 oz pur e alcohol) Comments Unknown Sex and Gender Information Value Date Recorded Sex Assigned at Not on file Legal Sex Female 5:44 AM CHART CHANGER Gender Identity Not on file Sexual Orientation Not on file 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 This test has been [...] LAB - MICROBIOLOGY ORDERABLES F inal Result [facility] [address] [place] [address], [facility] [phone] documented in this encounter Visit Diagnoses Not on filedocumented in this encounter Care Teams Boarder Machine Relationship Specialty Start Date End Date Lay Villalta MD [address] [facility] [address] [place] [phone] PCP - General Family Medicine 07/07/15 12/27/23 Edgardo Aldridge MD [address] [facility] [address] [place] [address] PCP - General Family Medicine 12/28/23 documented as of this encounter
--- OUTSIDE RECORDS SUMMARY | 2025-02-22 17:33 | XMS_ITS | Encounter Summary ---
Author Organization [facility] Address [address] [place] [address] Phone Care Team Providers Care Manager Book Name Role Phone aLy Villalta MD Primary Care Provider [phone] Eun Camacho Primary Care Provider [phone] Encounter Details Date Type Department Care Team (Late st Contact Info) Description 07/30/2021 Telephone [facility] Med Surg [address] [place] [phone] Kyleigh Thornton, RN [place] Social History Tobacco [...] on filedocumented in this encounter Care Teams Manager Book Relationship Specialty Start Date End Date Lay Villalta MD [address] [facility] [address] [place] [address] PCP - General Family Medicine 07/10/21 06/27/22 Eun Camacho PAC [address] [facility] [address] [place] [address] PCP - General Family Medicine 06/28/22 documented as of this encounter
--- OUTSIDE RECORDS SUMMARY | 2025-02-22 17:34 | XMS_ITS | Encounter Summary ---
Author Organization [facility] Care Team Providers Care Ball Warper Tender Name Role Phone Unknown, Notinfile Primary Care Provider Unavail able Lay Villalta MD Primary Care Provider [phone] Tremayne Kebede MD Unavailable [phone] Georgia Mcbride COLLAR SETTER Unavailable [phone] Miscellaneous, Not In File Unavailable Unava ilable Eun Camacho Primary Care Provider + Cony Pemberton STOCK ANALYST Unavailable [phone] Antonette Vernon RN Unavailable [phone] Andrei Chaves MD PhD Unavailable [phone] Olivia Phelps MD Unavailable [phone] Edgardo Aldridge MD Primary Care Provider [phone] Odilon Tellez MD Unavailable [phone] Miscellaneous, Not In File Unavailable Unava ilable Ct Boggs STOCK ANALYST Unavailable [phone] Odilon Tellez MD Unavailable [phone] Tracey Felix RN Unavailable [phone] Ayaka Thomas MD Unavailable [phone] Yumi Jones NP Unavailable [phone] TosinRogersRuthy STOCK ANALYST Unavailable Unavaila ble Feli Boggs RN Unavailable [phone] Mendel Bowling RN Unavailable [phone] Leslie Baptiste [facility] Unavailable Mendel Bowling RN Unavailable [phone] Odilon Tellez MD Unavailable [phone] Mavis Barahona RN Unavailable [phone] Mahnaz Garcia RN Unavailable [phone] Jaimie Glez RN Unavailable [phone] Encounter Details Date Type Department Care Team (Latest Contact Info) Description 04/07/2016 Orders Only [facility] CLINCONV Provider, MD S[facility] [address] [place] [address] Social History Tobacco Use Types Packs/Day Years Used Date Smoking Tobacco: Never Comments Unknown Sex and Gender Information Value Date Recorded Sex Assigned at Not on file Legal Sex Female 9:16 AM NURSING TEACHER Gender Identity Not on file Sexual Orientation Not on file documented as of this encounter Plan of Treatment Not on file documented as of this encounter Procedures Procedure Name Priority Date/Time Associated Diagnosis Comments CARDIOLOGY REPORT 04/07/2016 12: 00 AM NURSING TEACHER documented in this encounter Results * CARDIOLOGY REPORT (04/07/2016 12:00 AM NURSING TEACHER) Anatomical Region Laterality Modality Other Narrative 04/07/2016 12:00 AM NURSING TEACHER Ordered by an unspecified provider. Historical Provider [...] CDT COVID19 02/02/2020 02/02/2020 02/19/2020 3:05 AM NURSING TEACHER COVID: Recovered Comment:Added based on recent [...] COVID: Suspected 06/15/2023 06/15/2023 06/15/2023 5:53 PM NURSING TEACHER C. difficile suspected 06/24/2023 06/24/202306/26 6:03 [...] CDT 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 Source: [facility]. 08/20/2024 Carbapenemase, Unspecified Comment:Added from external infection. Source: [facility]. Kleb pneumo KPC 09/23/2024 10/31/2024 3:07 PM C DT CP-DISASTER RECOVERY MANAGER Comment:Added from external infection. Source: [facility]. Kleb pneumo KPC 10/31/2024 10/31/2024 documented as of this encounter Care Teams Ball Warper Tender Relationship Specialty Start Date End Date Unknown, Notinfile PCP - General 12/28/16 08/23/18 Lay Villalta MD PCP - General Family Medicine 08/24/18 07/17/21 Eun Camacho PA PCP - General Family Medicine 07/18/21 03/08/23 Edgardo Aldridge MD [address] [facility] [address] [place] [address] PCP - General Family Medicine 04/02/23 Tremayne Kebede MD Consulting Physician Gastroenterology 02/05/20 3 Georgia Mcbride LPN [address] [place] [address] [address] [place] [address] ACO Care Sheet Rocker 11/28/20 12/19/20 Miscellaneous, Not In File 07/17/21 03/16/23 Cony Pemberton, [facility] [address] [facility] Mailstop [phone] [place] [address] SHOP Outpatient Holiday Detector Operator 12/07/22 12/07/22 Antonette Vernon, KADY [address] [place] [address] SHOP Outpatient Holiday Detector Operator 12/08/22 01/05/23 Andrei Chaves MD PhD [address] [facility] [address] [place] [address] Referring Physician General Surgery 03/17/23 Olivia Phelps MD [address] [place], [place] [address] Consulting Physician Nephrology 03/17/23 Odilon Tellez MD [address] [place], [place] [address] Consulting Physician Nephrology 05/01/23 12/04/24 Miscellaneous, Not In File 07/08/23 01/24/24 Ct Boggs, [facility] [address] [facility] ([facility] Mailstop [phone] [place] [address] SHOP Outpatient Holiday Detector Operator 07/09/23 08/05/23 Odilon Tellez MD [address] [place], [place] [address] Referring Physician Nephrology 11/12/23 Tracey Felix, KADY [address] [place] [address] Hay Chopper 11/12/23 11/17/23 Ayaka Thomas MD [address] [facility] [address] [place] [address] Fellow Internal Medicine 12/17/23 Yumi Jones NP [address] [facility] [address] [place] [address] Nurse Practitioner Hospice and Palliative Medicine 08/16/23 Ruthy Leahy LCSW Installation & Maintenance Executive 12/31/23 02/22/24 Feli Boggs, KADY [address] [place] [address] [address] [place] [address] Auto Body Repairman 12/31/23 01/02/24 Mendel Bowling, KADY [address] [place] [address] [address] [place] [address] Auto Body Repairman 01/03/24 03/23/24 Leslie Baptiste, [address] [place] [address] Pharmacist Pharmacy 01/13/24 02/03/24 Mendel Bowling, KADY [address] [place] [address] [address] [place] [address] Auto Body Repairman 11/07/24 01/04/25 Odilon Telelz MD [address] [facility] [address] [place] [address] Consulting Physician Nephrology 12/05/24 Mavis Barahona, KADY [address] [facility] [address] [place] [address] Hay Chopper 12/20/24 01/08/25 Mahnaz Garcia, KADY [address] [place] [address] [address] [place] [address] Auto Body Repairman 01/15/25 01/15/25 Jaimie Glez RN [address] [place] [address] [address] [place] [address] Auto Body Repairman 01/29/25 02/07/25 documented as of this encounter
--- OUTSIDE RECORDS SUMMARY | 2025-02-22 17:34 | XMS_ITS | Clinical Summary ---
Author Organization [facility] Address [address] [place] [address] Care Team Providers Care Cooler Conveyor Loader Name Role Phone Edgardo Aldridge MD Primary Care Provider [phone] Keely Ugalde NAIL SPECIALIST Unavailable [phone] Keely Ugalde NAIL SPECIALIST Unavailable [phone] Odilon Tellez MD Unavailable [phone] Leonardo Washburn MD Unavailable [phone] Young Vasquez MD Unavailable [phone] Andrei Chaves MD Unavailable [phone] Allergies Active Allergy Reactions Criticality Noted Date [...] Unspecified hydronephrosis 10/26/2022 Pulmonary hypertension, unspecified 10/26/2022 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 Recently admitted at [facility] but left 2-3 days prior to admission here as she says she was unhappy with her care. Nausea recurred this am but no vomiting. Will resume IVF if she doesn't tolerate lunch. I reviewed some records from Care Everywhere and found a gastric emptying study done in [place] which was normal, though this doesn't exclude [...] CDT - 12/28/2024 7:12 PM CDT Emergency [facility] [place] [address] Gregory Diaz MD Abdominal Pain Discharge Disposition: Left Against Medical Advice 12/28/2024 Travel 12/24/2024 6:48 PM CDT - 12/24/2024 8:50 PM CDT Emergency [facility] Emergency Room [address] [place] [address] Starr Porter MD Chest Pain; Abdominal Pain [...] CDT - 12/18/2024 5:34 PM CDT Emergency [facility] Emergency Room [address] [place] [address] Cristine Rey MD Vomiting; Nausea Discharge Disposition: Home or Self Care (Routine Discharge) 12/18/2024 Travel 12/17/2024 4:22 PM CDT - 12/17/2024 9:17 PM CDT Emergency [facility] [place] [address] Devyn Guadarrama DO Chest Pain; Vomiting Discharge Disposition: Left Against Medical Advice 12/17/2024 Travel 12/13/2024 Results Follow-Up [facility] - [facility] [address], [address] [place] [address] Leonardo Washburn MD Complete PFT (pre/post Daljit, Lung Vol, Diff Capacity) ([id number], [id number], [id number], [id number]) 12/10/2024 1:20 PM CDT - 12/14/2024 4:45 PM CDT Hospital Encounter [facility] Med/Surg 3rd [place] [address] Hung Healy MD Lamonica, Kandace C, MD Suresh, MD Charlie Alamo, MD Gilson Gipson, Kristen Pierson, EDILMA Borja, Catherine Lipscomb, JANITOR AND CLEANER Vomiting; Chest Pain Discharge Disposition: Home or Self Care (Routine Discharge) 12/10/2024 Travel 12/08/2024 1:35 PM CDT - 12/08/2024 11:59 PM CDT Hospital Encounter [facility] [place] [address] Leonardo Washburn MD Discharge Disposition: Home or Self Care (Routine Discharge) 12/08/2024 11:00 AM CDT Office Visit [facility] Physical Therapy [address] [place] [address] Kya Arias, PT Edgardo Aldridge MD Leach, Danielle N, 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 Weakness (10/04) 12/08/2024 Scan HEALTH INFO SRVCS Scanned, Doc [facility] Group PFT (SCAN) 12/08/2024 [facility] [place] [address] Reva Campbell, DILSHAD Follow Up Call ([facility] 12/03-12/06/24) 12/08/2024 Travel 12/04/2024 [place] [address] 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 Campbell 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 Follow Up Call ([place] 11/30-12/01/24) 12/03/2024 11:04 PM CDT - 12/06/2024 1:56 PM CDT Hospital Encounter [facility] Med/Surg 3rd [place] [address] Raul Cartagena MD,PHD Nadine Ayala, Lily Ji MD Tran, Isaac T, MD Vomiting Discharge Disposition: Home or Self Care (Routine Discharge) 12/03/2024 Travel 11/30/2024 7:24 AM CDT - 12/01/2024 3:10 PM CDT Hospital Encounter [facility] [place] [address] Julissa Lawson MD Bismack, Gregory T, MD Chest Pain; Vomiting Discharge Disposition: Home or Self Care (Routine Discharge) 11/30/2024 Results Follow-Up [facility] Endo/[place] [address] Leonardo Washburn MD Pathology, CYTOLOGY GENERIC, CULTURE, TISSUE W/GRAM STAIN, Additional followed-up results: 8 11/29/2024 9:54 AM CDT - 11/29/2024 2:06 PM CDT Emergency [facility] [place] [address] Julissa Lawson MD Abdominal Pain Discharge Disposition: Home or Self Care (Routine Discharge) 11/29/2024 Travel 11/28/2024 Hospital Follow-up Call [facility] [place] [address] Reva Campbell LPN Follow Up Call ([facility] 11/23-11/25/24) 11/27/2024 9:45 AM CDT Office Visit [facility] Physical Therapy [address], [place] [id number] Kya Arias, PT Shellie Sanchez, JANITOR AND CLEANER Edgardo Aldridge MD Leach, Yareli Anna, WIRED SWEATBAND CUTTER Weakness (09/03) 11/27/2024 Telephone [facility] [address] [place] [id number] Leonardo Washburn MD Results 11/27/2024 Travel 11/23/2024 5:12 AM CDT - 11/25/2024 3:56 PM CDT Hospital Encounter [facility] Med/Surg 5th [place] [address] Julissa Lawson MD Jerkovich, Adria, MD Islam, Maaroof, MD Chest Pain; Hyperglycemia Symptomatic Discharge Disposition: Home or Self Care (Routine Discharge) 11/23/2024 Travel from Last 3 Months Immunizations Immunization [...] from your doctor or pharmacy? Never 11/23/2024 [employer] Answer Date Recorded In the past 12 months has e [employer], [employer], oil, or water [employer] threatened to shut off services in your [...] attend chur ch or episcopal services? Never 11/23/2024 Do you belong to any clubs o r organizations such as shinto groups, unions, fraternal or athletic groups, or [...] Recorded Patient Health Questionnaire-2 Score 0 11/23/2024 [facility] - Occupational [...] living in a jail (including now)? No 12/10/2024 Comments No Sex [...] st Contact Info) Description 05/24/2025 10:20 AM NURSE CLINICIAN Office Visit [facility] - [facility] [address] [place] [address] Leonardo Washburn MD [address] [facility] [address] [place] [address] Health Maintenance Due Date Last Done Comments [...] Vaccines (1 - 3-dose SCDM series) 06/16/2022 Hepatitis B Vaccines (3 of 3 - Risk Dialysis 4-dose series) 09/01/2024 09/02/2023, 07/20/2023, 1995, Additional history exists COVID-19 Vaccine (2 - season) 2024 01/24/2021 Hemoglobin A1C 02/24/2025 11/24/2024, 10/17, 10/29/2024, Additional history exists Lipid Panel 12/04/2025 12/04/2024, 09/19, 02/25/2021, Additional history exists Hepatitis C Completed 08/27/2024, 08/10/2020 PHQ-2 (Physician [place]) Completed 11/23/2024 Influenza Adult Completed 01/18/2025, 01/17, 02/16/2023, Additional history exists Hepatitis A Vaccines Aged Out No long [...] perform ADLs independently Lifestyle No Latrice Marie COUNSELOR SUPERVISOR Health - patient able to perform ADLs independently Lifestyle No Latrice Marie COUNSELOR SUPERVISOR Patient will return to prior living situation and remain independent in ADLs upon discharge from hospital Lifestyle No 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 - family caregiver with be involved in care transitions and discharge planning Lifestyle No 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 Marie 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 Devices Implanted Type Area Dead Mail Checker Device Identifier Shelf Expiration Date Model / Serial / Lot Catheter Power Port Mri Implanted 8fr - [id number] Implanted:Qty: 1 on 03/07/2024 by Juan Long MD at [facility] Port Left: Chest [employer] - [employer] [id number] 09/16/2025 [id number] / / [id number] Gastric Neurostimulator Implant Stimulator Implant Procedures Procedure [...] CDT BLOOD GAS, ARTERIAL LAB STAT 12/25/19 25 8:04 PM CDT BETA-HYDROXYBUTYRATE STAT 12/24/2024 7:10 [...] 2:03 PM CDT PROTHROMBIN TIME, VENOUS STAT 025 2:03 PM CDT CBC W/DIFF AUTOMATED STAT [...] ECG 12-LEAD Routine 11/23/2024 5:16 AM CDT HEPATITIS PANEL,ACUTE Routine 08/27/2024 9:41 AM CDT [...] 91. No ectopy us Gregory Diaz MD [place] CARDIOVASCULAR SYSTEM SERVI CRISTAL Final Result * (ABNORMAL) URINALYSIS (12/28/2024 6:22 PM CDT) Only the most recent of4 resultswithin the time period is included. SPECIMEN TYPE URINE CLEAN CATCH 12/28/2024 6:24 PM CDT [facility] COLOR (U) COLORLESS 12/28/2024 6:55 PM CDT [facility] TRANSPARENCY CLEAR 12/28/2024 6:55 PM CDT [facility] SPECIFIC GRAVITY (U) 1.020 1.001 - 1.030 12/28/2024 6:55 PM CDT [facility] U PH 7.0 5.0 - 9.0 12/28/2024 6:55 PM CDT [facility] LEUKOCYTES (U) NEGATIVE NEGATIVE 12/28/2024 6:55 PM CDT [facility] NITRITES NEGATIVE NEGATIVE 12/28/2024 6:55 PM CDT [facility] PROTEIN RANDOM (U) 300(H) <30 MG/DL 12/28/2024 6:55 PM CDT [facility] GLUCOSE (U) >1000(A) NORMAL MG/DL 12/28/2024 6:55 PM CDT [facility] KETONES MG/DL (U) 20(A) NEGATIVE MG/DL 12/28/2024 6:55 PM CDT [facility] Comment: Successful Call: DANIEL called 12/28/2024 06:56 PM to EMERGENCY ROOM ([id number]/DAY, JD) by [id number]. UROBILINOGEN NORMAL NORMAL MG/DL 12/28/2024 6:55 PM CDT [facility] BILIRUBIN (U) NEGATIVE NEGATIVE MG/DL 12/28/2024 6:55 PM CDT [facility] BLOOD (U) 3+(A) NEGATIVE 12/28/2024 6:55 PM CDT [facility] MUCUS RARE /LPF 12/28/2024 6:55 PM CDT [facility] WBC/HPF 26(H) <6 /HPF 12/28/2024 6:55 PM CDT [facility] RBC/HPF >100(H) <6 /HPF 12/28/2024 6:55 PM CDT [facility] BACTERIA (U) RARE(A) NONE /HPF 12/28/2024 6:55 PM CDT [facility] SQUAMOUS EPITHELIALS RARE /HPF 12/28/2024 6:55 PM CDT [facility] URINE SPECIMEN OBTAINED BY CLEAN CATCH PROCEDURE / Unknown 12/28/2024 6:22 PM CDT Gregory Diaz MD URINE ORDERABLES Final Result [facility] [address] [place] [address], [place] [phone] * (ABNORMAL) COMPREHENSIVE METABOLIC PANEL (12/28/2024 6:22 PM CDT) Only the most recent of13 resultswithin the time period is included. GLUCOSE 228(H) 70 - 99 MG/DL 12/28/2024 7:15 PM CDT [facility] BUN 29(H) 7 - 18 MG/DL 12/28/2024 7:15 PM CDT [facility] CREATININE S/P/B 9.14(HH) 0.55 - 1.02 MG/DL 12/28/2024 7:15 PM CDT [facility] Comment: Critical Result(s) Called at: 19:14:15 on 12/28/2024 by: MARION CAPONE to and read back by:DESIREE INMAN SODIUM S/P/B 137 136 - 145 MMOL/L 12/28/2024 7:15 PM CDT [facility] POTASSIUM S/P/B 3.3(L) 3.5 - 5.1 MMOL/L 12/28/2024 7:15 PM CDT [facility] CHLORIDE S/P/B 105 97 - 115 MMOL/L 12/28/2024 7:15 PM CDT [facility] CO2 20.5(L) 21 - 32 MMOL/L 12/28/2024 7:15 PM CDT [facility] CALCIUM S/P/B 7.5(L) 8.5 - 10.1 MG/DL 12/28/2024 7:15 PM CDT [facility] BILIRUBIN TOTAL S/P/B 0.4 0.2 - 1.2 MG/DL 12/28/2024 7:15 PM CDT [facility] Comment: THIS ASSAY IS NOT RECOMMENDED FOR PATIENTS UNDERGOING TREATMENT WITH ELTROMBOPAG DUE TO THE POTENTIAL FOR FALSELY ELEVATED RESULTS. TOTAL PROTEIN S/P/B 6.7 6.4 - 8.2 G/DL 12/28/2024 7:15 PM CDT [facility] ALBUMIN S/P/B 2.9(L) 3.4 - 5.0 G/DL 12/28/2024 7:15 PM CDT [facility] AST 28 15 - 37 U/L 12/28/2024 7:15 PM CDT [facility] ALT 16 14 - 55 U/L 12/28/2024 7:15 PM CDT [facility] ALKALINE PHOSPHATASE S/P/B 159(H) 50 - 136 U/L 12/28/2024 7:15 PM CDT [facility] ANION GAP 11.5(H) 2 - 10 MMOL/L 12/28/2024 7:15 PM CDT [facility] BUN CREATININE RATIO 3.2(L) 6 - 26 12/28/2024 7:15 PM CDT [facility] A/G RATIO 0.8(L) 1.0 - 2.0 RATIO 12/28/2024 7:15 PM CDT [facility] GFR ESTIMATE 5(L) >90 ML/MIN/1.7 3 M2 12/28/2024 7:15 PM CDT [facility] Comment: NOTE: eGFR is not calculated for patients <18 years of age or gender unknown. This is an estimated GFR calculation using the new CKD EPI creatinine equation without race and so does not require a correction factor for race. This estimated GFR should not be used for calculating drug doses. 12/28/2024 6:22 PM CDT us Gregory Diaz MD LABORATORY Final Result [facility] [address] [place] [address], [place] [phone] * XR CHEST PORTABLE (12/28/2024 5:37 PM CDT) Only the most recent of5 resultswithin the time period is included. Anatomical Region Laterality Modality Chest Radiographic Michelle ging 12/28/2024 6:30 PM CDT Impressions 12/28/2024 6:30 PM CDT IMPRESSION: No acute cardiopulmonary process. Referred By: Interpreted By: Aaron Michele MD, 12/28/2024 6:30 PM Narrative 12/28/2024 6:30 PM CDT [place] [id number] EXAM: XR CHEST PORTABLE INDICATION: Chest pain [...] Procedure Note Aaron Michele MD - 12/28/2024 [place] [id number] EXAM: XR CHEST PORTABLE INDICATION: Chest pain [...] By: Aaron Michele MD, 12/28/2024 6:30 PM us Gregory Diaz MD GENERAL IMAGING Final Result * ECG 12 lead (12/28/2024 3:18 PM CDT) Only the most recent of8 resultswithin the time period is included. 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 Procedure Note Dennis Delacruz MD - 12/29/[address] [address] Test Date: 2024-12-28 Pat Name: LYNETTE JULIO CÉSAR Department: 41 Room: RENZO Gender: Female Telephone Service Representative: [id number] : 1995 Requested By: GREGORY DIAZ Order Number: [id number] Reading : Dennis Delacruz Measurements Intervals [place] Rate: 91 P: 20 MO: 169 QRS: 14 QRSD: 86 T: 41 QT: 397 QTc: 490 Interpretive Statements SINUS RHYTHM MODERATE VOLTAGE CRITERIA FOR LVH, CONSIDER NORMAL VARIANT [MEETSCRITERIA IN ONE OF: R(aVL), S(V1), R(V5), R(V5/V6)+S(V1)].prolonged QTc Compared to ECG 12/24/2024 18:57:55 Sinus tachycardia no longer present Preliminary EKG Interpretation by Gregory Diaz M.D. Gregory Diaz MD ECG ORDERABLES Final Result [facility] ([facility]) RAD * Qualitative HCG (12/28/2024 2:34 PM CDT) Only the most recent of3 resultswithin the time period is included. [facility] PREG SCREEN-SERUM NEGATIVE 12/28/2024 5:10 PM CDT [facility] 12/28/2024 2:34 PM CDT us Gregory Diaz MD LABORATORY Final Result Performing Organization Address City/[facility]/ZIP Co de Phone Number [facility] [address] [place] [address], [place] [phone] * (ABNORMAL) CBC W/DIFF AUTOMATED (12/28/2024 2:34 PM CDT) Only the most recent of18 resultswithin the time period is included. [facility] WBC 5.75 4.5 - 11.0 x10'3/uL 12/28/2024 3:24 PM CDT [facility] RBC 3.92(L) 4.20 - 5.40 x10'6/uL 12/28/2024 3:24 PM CDT [facility] HGB 10.7(L) 12.0 - 16.0 G/DL 12/28/2024 3:24 PM CDT [facility] HCT 33.3(L) 38.0 - 48.0 % 12/28/2024 3:24 PM CDT [facility] MCV 84.9 81.0 - 99.0 FL 12/28/2024 3:24 PM CDT [facility] MCH 27.3 27.0 - 31.0 PG 12/28/2024 3:24 PM CDT [facility] MCHC 32.1 32.0 - 36.0 G/DL 12/28/2024 3:24 PM CDT [facility] RDW 14.0 11.5 - 14.5 % 12/28/2024 3:24 PM CDT [facility] PLT 258 130 - 400 x10'3/uL 12/28/2024 3:24 PM CDT [facility] MPV 10.7 9.3 - 12.2 FL 12/28/2024 3:24 PM CDT [facility] DIFFERENTIAL TYPE AUTOMATED DIFFERENTIAL 12/28/2024 3:24 PM CDT [facility] NEUTROPHILS % 70.2 % 12/28/2024 3:24 PM CDT [facility] LYMPHOCYTES % 22.3 % 12/28/2024 3:24 PM CDT [facility] MONOCYTES % 4.2 % 12/28/2024 3:24 PM CDT [facility] EOSINOPHILS 2.8 % 12/28/2024 3:24 PM CDT [facility] BASOPHILS 0.3 % 12/28/2024 3:24 PM CDT [facility] IMMATURE GRANS % 0.2 % 12/29/19 3:24 PM CDT [facility] ABS. NEUTROPHILS 4.04 1.80 - 7.70 x10'3/uL 12/28/2024 3:24 PM CDT [facility] ABS. LYMPHOCYTES 1.28 1.00 - 4.80 x10'3/uL 12/28/2024 3:24 PM CDT [facility] ABS. MONOCYTES 0.24 0.24 - 0.86 x10'3/uL 12/28/2024 3:24 PM CDT [facility] ABS. EOSINOPHILS 0.16 0.04 - 0.36 x10'3/uL 12/28/2024 3:24 PM CDT [facility] ABS. BASOPHILS 0.02 0.01 - 0.08 x10'3/uL 12/28/2024 3:24 PM CDT [facility] ABS. IMMATURE GRANULOCYTES 0.01 0.00 - 0.49 x10'3/uL 12/28/2024 3:24 PM CDT [facility] 12/28/2024 2:34 PM CDT Gregory Diaz MD LABORATORY Final Result [place] [id number], * TROPONIN, QUANT (12/28/2024 2:34 PM CDT) Only the most recent of9 resultswithin the time period is included. TROPONIN I HIGH SENSITIVITY 13 <54 ng/L 12/28/2024 3:17 PM CDT [facility] Comment: HIGH DOSES OF BIOTIN, TROPONIN-SPECIFIC AUTOANTIBODIES, AND ANTIBODY THERAPY CONTAINING HAMA MAY INTERFERE WITH THIS TEST RESULT. CORRELATION TO CLINICAL HISTORY AND PRESENTATION RECOMMENDED. 12/28/2024 2:34 PM CDT Gregory Diaz MD LABORATORY Final Result [facility] [address] [place] [address], [place] [phone] * (ABNORMAL) PHOSPHORUS, INORGANIC PHOSPHATE (12/28/2024 2:34 PM CDT) Only the most recent of4 resultswithin the time period is included. PHOSPHORUS 5.9(H) 2.5 - 4.9 MG/DL 12/28/2024 5:11 PM CDT [facility] 12/28/2024 2:34 PM CDT us Gregory Diaz MD LABORATORY Final Result [facility] [address] [place] [address], [place] [phone] * MAGNESIUM (12/28/2024 2:34 PM CDT) Only the most recent of7 resultswithin the time period is included. MAGNESIUM 2.4 1.8 - 2.4 MG/DL 12/28/2024 5:11 PM CDT [facility] 12/28/2024 2:34 PM CDT us Gregory Diaz MD LABORATORY Final Result [facility] [address] [place] [address], [place] [phone] * LIPASE (12/28/2024 2:34 PM CDT) Only the most recent of7 resultswithin the time period is included. LIPASE 34 13 - 75 UNITS/L 12/28/2024 3:17 PM CDT [facility] 12/28/2024 2:34 PM CDT Gregory Diaz MD LABORATORY Final Result [facility] [address] [place] [address], [place] [phone] * Critical Care (12/24/2024 8:38 PM CDT) [...] 7.35 - 7.45 12/24/2024 8:13 PM CDT [facility] PCO2 40.0 35 - 45 MMHG 12/24/2024 8:13 PM CDT [facility] PO2 94.0 83 - 108 MMHG 12/24/2024 8:13 PM CDT [facility] TOTAL CO2 ARTERIAL 26.6(H) 19.0 - 24.0 MMOL/L 12/24/2024 8:13 PM CDT [facility] BASE EXCESS 0.7 0.0 - 3.0 MMOL/L 12/24/2024 8:13 PM CDT [facility] O2 SATURATION 97 94.0 - 98.0 % 12/24/2024 8:13 PM CDT [facility] BICARB ARTERIAL 25.4 21.0 - 28.0 MMOL/L 12/24/2024 8:13 PM CDT [facility] RAJAN TEST POSITIVE 12/24/2024 8:10 PM CDT [facility] O2 ADMIN ARTERIAL 21 12/24/2024 8:10 PM CDT [facility] DRAW SITE ARTERIAL RT BRACH 12/24/2024 8:10 PM CDT [facility] 12/24/2024 8:04 PM CDT Starr Porter MD LABORATORY Final Result Performing Organization Address City/[facility]/ZIP Co de Phone Number [facility] [address] [place] [id number], [place] [phone] * (ABNORMAL) BETA-HYDROXYBUTYRATE (12/24/2024 7:10 PM CDT) Only the most recent of6 resultswithin the time period is included. BETA-HYDROXYBU TYRATE 0.8(H) <0.6 MMOL/L 12/24/2024 7:55 PM CDT [facility] 12/24/2024 7:10 PM CDT Starr Porter MD LABORATORY Final Result [facility] [address] [place] [address], [place] [phone] * XR ABD FLAT+UPRIGHT (12/18/2024 4:28 PM CDT) Anatomical Region Laterality Modality Abdomen Radiographic Michelle ging 12/18/2024 4:55 PM CDT Impressions 12/18/2024 4:58 PM CDT IMPRESSION: Nonobstructed gas pattern. No free air. Referred By: Interpreted By: Sampson Gustafson MD, 12/18/2024 4:55 PM Narrative 12/18/2024 4:58 [place] [address] EXAMINATION: XR ABD FLAT+UPRIGHT HISTORY: Vomiting, pain DATE: 12/18/2024 4:14 PM COMPARISON: September 28, 2022 TECHNIQUE: Supine and upright AP views of the abdomen. 3 images. FINDINGS: Nonobstructed gas pattern. Gastric stimulator device is noted. Mild gaseous distention of the stomach. Moderate amount of stool density. No acute osseous abnormality. No free air. Procedure Note Sampson Gustafson MD - 12/18/2024 [place] [address] EXAMINATION: XR ABD FLAT+UPRIGHT HISTORY: Vomiting, pain [...] 7.32 - 7.43 12/18/2024 3:21 PM CDT [facility] PCO2 VENOUS 33.0 MMHG 12/18/2024 3:21 PM CDT [facility] Comment:NO REFERENCE RANGE H BEEN ESTABLISHED PO2 VENOUS 75.0 MM HG 12/18/2024 3:21 PM CDT [facility] Comment:NO REFERENCE RANGE H BEEN ESTABLISHED TOTAL CO2 VENOUS 22.4 22.0 - 26.0 MMOL/L 12/18/2024 3:21 PM CDT [facility] BASE DEFICIT VENOUS 2.4 MMOL/L 12/18/2024 3:21 PM CDT [facility] Comment:NO REFERENCE RANGE H BEEN ESTABLISHED O2 SAT VENOUS 95 % 12/18/2024 3:21 PM CDT [facility] Comment:NO REFERENCE RANGE H BEEN ESTABLISHED BICARB VENOUS 21.4(L) 22.0 - 29.0 MMOL/L 12/18/2024 3:21 PM CDT [facility] O2 ADMIN VENOUS 21 3:21 PM T [facility] 12/18/2024 3:10 PM CDT us Cristine Rey MD LABORATORY Final Result [facility] [address] [place] [address], * LACTIC ACID (12/18/2024 3:10 PM CDT) LACTIC ACID VENOUS 0.6 0.4 - 2.0 MMOL/L 12/18/2024 3:38 PM CDT [facility] 12/18/2024 3:10 PM CDT us Cristine Rey MD LABORATORY Final Result Performing Organization Address City/[facility]/ZIP Co de Phone Number [facility] [address] [place] [address], [place] [phone] * CORONAVIRUS (COVID 19) (12/17/2024 6:02 PM CDT) CORONAVIRUS SARS COV 2 RNA NEGATIVE NEGATIVE 12/17/2024 6:37 PM CDT [facility] Comment: NEGATIVE RESULTS DO NOT RULE [...] SPECIMEN TYPE NASAL 12/17/2024 6:05 PM CDT [facility] NASAL STRUCTURE / Unknown 12/17/2024 6:02 PM CDT us Devyn Guadarrama DO MICROBIOLOGY - GENERAL ORDERAB LES Final Result [facility] [address] [place] [address], [place] [phone] * INFLUENZA A & B (12/17/2024 6:01 PM CDT) SPECIMEN TYPE NASAL 12/17/2024 6:15 PM CDT [facility] [facility] INFLUENZA A NEGATIVE NEGATIVE 12/17/2024 6:38 PM CDT [facility] INFLUENZA B NEGATIVE NEGATIVE 12/17/2024 6:38 PM CDT [facility] Comment: Interpretation: Negative for Influenza A [...] Unknown 12/17/2024 6:01 PM CDT us Devyn Guadarrama DO MICROBIOLOGY - GENERAL ORDERAB LES Final Result [facility] [address] [place] [address], [place] [phone] * CTA CHEST+ABD+PEL (12/17/2024 5:57 PM CDT) [...] 7:19 PM Narrative 12/17/2024 7:34 PM CDT [facility] [address] [place], [place] [address] EXAMINATION: CTA Chest, Abdomen and Pelvis with [...] Procedure Note Porter Rolle MD - 12/17/[address] [address] EXAMINATION: CTA Chest, Abdomen and Pelvis with [...] 3:45 PM CDT) Only the most recent of65 resultswithin the time period is included. GLUCOSE POC 256(H) 70 - 99 mg/dL 12/14/2024 4:01 PM CDT [facility] 12/14/2024 3:45 PM CDT Catherine Borja JANITOR AND CLEANER POCT ORDERABLES - DEVICE Marli lipscomb Result [facility] [address] [place] [address], [place] [phone] * (ABNORMAL) BASIC METABOLIC PANEL (12/14/2024 3:18 PM CDT) Only the most recent of19 resultswithin the time period is included. GLUCOSE 247(H) 70 - 99 MG/DL 12/14/2024 4:13 PM CDT [facility] BUN 18 7 - 18 MG/DL 12/14/2024 4:13 PM CDT [facility] CREATININE S/P/B 5.19(HH) 0.55 - 1.02 MG/DL 12/14/2024 4:13 PM CDT [facility] Comment:NOT CALLED PER CRITI NICOLE VALUE POLICY SODIUM S/P/B 135(L) 136 - 145 MMOL/L 12/14/2024 4:13 PM CDT [facility] POTASSIUM S/P/B 4.3 3.5 - 5.1 MMOL/L 12/14/2024 4:13 PM CDT [facility] CHLORIDE S/P/B 104 97 - 115 MMOL/L 12/14/2024 4:13 PM CDT [facility] CO2 25.1 21 - 32 MMOL/L 12/14/2024 4:13 PM CDT [facility] CALCIUM S/P/B 8.2(L) 8.5 - 10.1 MG/DL 12/14/2024 4:13 PM CDT [facility] ANION GAP 5.9 2 - 10 MMOL/L 12/14/2024 4:13 PM CDT [facility] BUN CREATININE RATIO 3.5(L) 6 - 26 12/14/2024 4:13 PM CDT [facility] GFR ESTIMATE 11(L) >90 ML/MIN/1.7 3 M2 12/14/2024 4:13 PM CDT [facility] Comment: NOTE: eGFR is not calculated for patients <18 years of age or gender unknown. This is an estimated GFR calculation using the new CKD EPI creatinine equation without race and so does not require a correction factor for race. This estimated GFR should not be used for calculating drug doses. 12/14/2024 3:18 PM CDT us Catherine Borja NP LABORATORY Final Result [facility] [address] [place] [address], [place] [phone] * CT ABD+PEL W CON (12/11/2024 12:07 [...] the report body above. Ordered By: BEVERLY SARATHRANDAL WRIGHT Interpreted By: Lilo Scott MD, 12/11/2024 12:28 PM Narrative 12/11/2024 12:50 PM [address] [address] Examination: CT abdomen and pelvis with IV [...] Procedure Note Lilo Scott MD - 12/11/2024 [facility] [address] [place], [place] [address] Examination: CT abdomen and pelvis with IV [...] By: Lilo Scott MD, 12/11/2024 12:28 PM us Beverly Wright MD CT Final R esult * LACTIC ACID W REFLEX (SEPSIS) (12/10/2024 2:03 PM CDT) Only the most recent of3 resultswithin the time period is included. LACTIC ACID VENOUS 1.6 0.4 - 2.0 MMOL/L 12/10/2024 3:27 PM CDT [facility] 12/10/2024 2:03 PM CDT us Parag Michaels PA-C LABORATORY Final Resul t [facility] [address] [place] [address], [place] [phone] * (ABNORMAL) TSH W/REFLEX (12/10/2024 2:03 PM CDT) TSH 7.600(H) 0.358 - 3.74 uIU/ML 12/10/2024 3:13 PM CDT [facility] Comment: HIGH DOSES OF BIOTIN MAY INTERFERE WITH THIS TEST RESULT. CORRELATION TO CLINICAL HISTORY AND PRESENTATION RECOMMENDED. 12/10/2024 2:03 PM CDT us Parag Michaels PA-C LABORATORY Final Resul t Performing Organization Address City/[facility]/ZIP Co de Phone Number [facility] [address] [place] [address], [place] [phone] * PARTIAL THROMBOPLASTIN TIME,PTT (12/10/2024 2:03 PM CDT) PTT 34.8 25.1 - 36.5 SEC 12/10/2024 2:44 PM CDT [facility] 12/10/2024 2:03 PM CDT us Parag Michaels PA-C LABORATORY Final Resul t [facility] [address] [place] [address], [place] [phone] * PROTIME/INR, VENOUS (12/10/2024 2:03 PM CDT) PROTIME 11.3 10.2 - 12.9 SEC 12/10/2024 2:44 PM CDT [facility] INR 1.0 12/10/2024 2:44 PM CDT [facility] Comment: Recommended INR Therapeutic Goals: 2.0-3.0 Routine Therapy 2.5-3.5 Mechanical Prosthetic Valves (High Risk) 12/10/2024 2:03 PM CDT Parag Michaels PA-C LABORATORY Final Resul t Performing Organization Address City/[facility] Co de Phone Number [facility] [address] [place] [address], [place] [phone] * THYROXINE, FREE (FT4) (12/10/2024 2:03 PM CDT) FREE T4 1.17 0.76 - 1.46 NG/DL 12/10/2024 3:28 PM CDT [facility] 12/10/2024 2:03 PM CDT Parag Michaels PA-C LABORATORY Final Resul t Performing Organization Address [facility] Co de Phone Number [facility] [address] [place] [address], [place] [phone] * Complete PFT (pre/post [place], Lung Vol, Diff Capacity) ([id number], [id number], [id number], [id number]) (12/08/2024 2:00 PM CDT) Narrative [facility] - 12/08/2024 2:00 PM CDT Leonardo Washburn MD 12/13/2024 10:14 AM [facility] TESTS Lynette Bellamy 29-year-old Height 64 inches Weight 145 Lbs [...] test without the need for supplemental oxygen Leonardo Washburn MD Leonardo Washburn MD PFT ORDERABLES Final Result [facility] [address] [place] [address], * Home O2 eval (12/08/2024 2:00 PM CDT) Narrative [facility] - 12/08/2024 2:00 PM CDT Leonardo Washburn MD 12/13/2024 10:14 AM [facility] PULMONARY FUNCTION TESTS Lynette Bellamy 29-year-old Height 64 inches Weight 145 Lbs [...] test without the need for supplemental oxygen Leonardo Washburn MD Shellie Sanchez JANITOR AND CLEANER PFT ORDERABLES Final Result [facility] [address] [place] [address], * PFT GENERIC (SCAN ORDER) (12/08/2024) 12/08/2024 [facility] Scanned SCANNING Final Resu lt * (ABNORMAL) LIPID PANEL (12/04/2024 11:58 AM CDT) CHOLESTEROL 109 <200 MG/DL 12/04/2024 12:39 PM CDT [facility] TRIGLYCERIDES 133 <150 MG/DL 12/04/2024 12:39 PM CDT [facility] HDL 31(L) >40.0 MG/DL 12/04/2024 12:39 PM CDT [facility] LDL (CALCULATED) 51 <100 MG/DL 12/05/19 25 12:39 PM T [facility] Comment:CALCULATED USING THE FRIEDEWALD EQUATION NON HDL CHOLESTEROL 78 <130 MG/DL 12/04 12:39 PM CDT [facility] CHOL/HDL RATIO 3.5 0.0 - 4.5 12/04/2024 12:39 PM T [facility] VLDL CALCULATION 27 5 - 55 MG/DL 12/04/2024 12:39 PM CDT [facility] LIPID INTERPRETATION 12/04/2024 12:39 PM T [facility] Comment: [facility] CONCENS[facility] REPORT RECOMMENDATIONS: ADULT CHILD LOW RISK: CHOLESTEROL <200 <170 TRIGLYCERIDE <150 --- HDL >=60 --- LDL <100 <110 BORDERLINE: CHOLESTEROL 200-239 170-199 TRIGLYCERIDE 150-199 --- HDL 40-59 --- LDL 100-159 110-129 HIGH RISK: CHOLESTEROL >=240 >=200 TRIGLYCERIDE >=200 --- HDL <40 --- LDL >=160 >=130 12/04/2024 11:5 8 AM CDT Magda Madsen DO LABORATORY Fin al Result Performing Organization Address City/[facility]/ZIP Co de Phone Number [facility] [address] [place] [address], [place] [phone] * CULTURE, BACTERIA, BLOOD (12/04/2024 4:00 AM CDT) Only the most recent of4 resultswithin the time period is included. SPEC DESCRIPTION BLOOD 12/04/2024 2:13 AM CDT [facility] SPECIAL REQUESTS NO SPECIAL REQUEST 12/04/2024 2:13 AM CDT [facility] CULTURE RESULT NO GROWTH 5 DAYS 12/09/2024 4:45 AM CDT [facility] BLOOD SPECIMEN OBTAINED FOR BLOOD CULTURE / Unknown 12/04/2024 4:00 AM CDT 12/04/2024 4:28 AM CDT Vee Buckner MD MICROBIOLOGY - GENERAL O RDERABLES Final Result Performing Organization Address City/[facility]/ZIP Co de Phone Number [facility] [address] [place] [address], [place] [phone] * (ABNORMAL) MRSA SCREENING (12/04/2024 2:30 AM CDT) Only the most recent of2 resultswithin the time period is included. SPEC DESCRIPTION NASAL 12/04/2024 2:36 AM CDT [facility] SPECIAL REQUESTS NO SPECIAL REQUEST 12/04/2024 2:36 AM CDT [facility] CULTURE RESULT METHICILLIN RESISTANT STAPHYLOCOCCUS AUREUS ISOLATED(AA) 12/05/2024 6:49 AM CDT [facility] CULTURE RESULT CALLED MRSA RESULT TO AND REPEATED BACK BY LYNETTE MIX RN AT [phone] DY 12/05/2024 6:49 AM CDT [facility] SPECIMEN FROM INTERNAL NOSE / Unknown 12/04/2024 2:30 AM CDT 12/04/2024 2:46 AM CDT Nadine Ayala DO MICROBIOLOGY - GENERAL ORDER SHABNAM Final Result [facility] [address] [place] [address], [place] [phone] * URINE BACTERIA CULTURE (12/03/2024 11:50 PM CDT) SPEC DESCRIPTION URINE CLEAN CATCH 12/04/2024 2:12 AM CDT [facility] SPECIAL REQUESTS NO SPECIAL REQUEST 12/04/2024 2:12 AM CDT [facility] CULTURE RESULT POLYMICROBIAL GROWTH CONSISTENT WITH NORMAL GENITAL STEPHANIE. SUSCEPTIBILITIES NOT ROUTINELY PERFORMED. 12/05/2024 8:34 AM CDT [facility] URINE SPECIMEN OBTAINED BY CLEAN CATCH PROCEDURE / Unknown 12/03/2024 11:50 PM CDT 12/04/2024 2:49 AM CDT us Vee Buckner MD MICROBIOLOGY - GENERAL O RDERABLES Final Result [facility] [address] [place] [address], * (ABNORMAL) HEMOGLOBIN, GLYCOSYLATED (11/24/2024 3:50 AM CDT) [facility] HGB A1C 9.2(H) <5.7 % 11/24/2024 4:47 AM CDT [facility] Comment: ADA GUIDELINES 2010 5.7 TO 6.4% INCREASED RISK OF DIABETES > OR = 6.5% CONSISTENT WITH DIABETES ESTIMATED AVG GLUCOSE 217 mg/dL 11/24/2024 4:47 AM CDT [facility] 11/24/2024 3:50 AM CDT Diaz Anthony MD LABORATORY Final Result [facility] [address] [place] [address], * RESPIRATORY PCR PANEL 2 (11/23/2024 12:15 PM CDT) [facility] ADENOVIRUS PCR (RESP) NOT DETECTED NOT DETECTED 11/23/2024 1:38 PM CDT [facility] CORONAVIRUS 229E PCR (RESP) NOT DETECTED NOT DETECTED 11/23/2024 1:38 PM CDT [facility] CORONAVIRUS HKU1 PCR (RESP) NOT DETECTED NOT DETECTED 11/23/2024 1:38 PM CDT [facility] CORONAVIRUS NL63 PCR (RESP) NOT DETECTED NOT DETECTED 11/23/2024 1:38 PM CDT [facility] CORONAVIRUS OC43 PCR (RESP) NOT DETECTED NOT DETECTED 11/23/2024 1:38 PM CDT [facility] METAPNEUMOVIRUS PCR (RESP) NOT DETECTED NOT DETECTED 11/23/2024 1:38 PM CDT [facility] RHINOVIRUS/ENTEROV IRUS PCR (RESP) NOT DETECTED NOT DETECTED 11/23/2024 1:38 PM CDT [facility] INFLUENZA A PCR (RESP) NOT DETECTED NOT DETECTED 11/23/2024 1:38 PM CDT [facility] INFLUENZA B PCR (RESP) NOT DETECTED NOT DETECTED 11/23/2024 1:38 PM CDT [facility] PARAINFLUENZA 1 PCR (RESP) NOT DETECTED NOT DETECTED 11/23/2024 1:38 PM CDT [facility] PARAINFLUENZA 2 PCR (RESP) NOT DETECTED NOT DETECTED 11/23/2024 1:38 PM CDT [facility] PARAINFLUENZA 3 PCR (RESP) NOT DETECTED NOT DETECTED 11/23/2024 1:38 PM CDT [facility] PARAINFLUENZA 4 PCR (RESP) NOT DETECTED NOT DETECTED 11/23/2024 1:38 PM CDT [facility] RSV PCR (RESP) NOT DETECTED NOT DETECTED 11/23/2024 1:38 PM CDT [facility] B PARAPERTUSIS PCR (RESP) NOT DETECTED NOT DETECTED 11/23/2024 1:38 PM CDT [facility] BORDETELLA PERTUSSIS PCR (RESP) NOT DETECTED NOT DETECTED 11/23/2024 1:38 PM CDT [facility] CHLAMYDOPHILA PNEUMONIAE PCR (RESP) NOT DETECTED NOT DETECTED 11/23/2024 1:38 PM CDT [facility] MYCOPLASMA PNEUMONIAE PCR (RESP) NOT DETECTED NOT DETECTED 11/23/2024 1:38 PM CDT [facility] CORONAVIRUS SARS COV 2 PCR (RESP) NOT DETECTED NOT DETECTED 11/23/2024 1:38 PM CDT [facility] NASOPHARYNGEAL SWAB / Unknown 11/23/2024 12:15 PM CDT Dania Westyakelin LEVINE MICROBIOLOGY - GENERAL OR DERABLES Final Result Performing Organization Address City/[facility]/ZIP Co de Phone Number [facility] [address] [place] [address], [place] [phone] * (ABNORMAL) PROCALCITONIN (PCT) (11/23/2024 8:43 AM CDT) PROCALCITONIN 19.39(H) 0.00 - 0.49 NG/ML 11/23/2024 10:19 AM CDT [facility] 11/23/2024 8:43 AM CDT Dania Tierney Leanna LEVINE LABORATORY Final Res ult Performing Organization Address [facility] Co de Phone Number [facility] [address] [place] [address], [place] [phone] * Critical Care (11/23/2024 6:32 AM CDT) [...] admitting provider Julissa Lawson MD PROCEDURE/MINOR SURGICAL CUONG HUNTER Final Result * HEPATITIS PANEL,ACUTE (08/27/2024 9:41 AM CDT) HEPATITIS B SURFACE AG NON-REACTI VE NON-REACTI VE 08/27/2024 12:38 PM CDT [facility] HEP B CORE IGM NON-REACTI VE NON-REACTI VE 08/27/2024 12:38 PM CDT [facility] HAV IGM NON-REACTI VE NON-REACTI VE 08/27/2024 12:38 PM CDT [facility] HEPATITIS C AB NON-REACTI VE NON-REACTI VE 08/27/2024 12:38 PM CDT [facility] 08/27/2024 9:41 AM CDT Lily Louis MD LABORATORY Final Result [facility] [address] [place] [address], from Last 3 Months or Most Recently Relevant to Health Maintenance Additional Health Concerns Infection Onset Date Last Indicated MRSA Comment:04/27/23 +MRSA Urine 10/23/23 +MRSA from [facility]. Added from external infection. Source: [facility]. 02/09/24 +MRSA Nares from [facility]. 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 09/23/2024 09/23/2024 Insurance MEDICARE MEDICAID Advance Directives Documents on File Type Date Recorded Patient Wood Turner Expl anation DNR (Do Not Resuscitate) Documentation [...] 8:32 AM 10/16/2024 6:48 PM Care Teams Cooler Conveyor Loader Relationship Specialty Start Date End Date Edgardo Aldridge MD [address] [address] PCP - General FAMILY PRACTICE 07/03/24 Keely Ugalde APRN [address] [place] [address] PCP - Hospice Attending 10/06/24 Keely Ugalde APRN [address] [place] [address] Nurse Practitioner PALLIATIVE CARE 10/09/24 Odilon Tellez MD [address] [address] Consulting Physician NEPHROLOGY 11/17/24 Leonardo Washburn MD 3 [facility] [address] [place] [address] Consulting Physician Internal Medicine Pulmonary Disease 11/17/24 Young Vasquez MD [address] [facility] [address] [place] [address] GASTROENTEROLOGY 11/17/24 Andrei Chaves MD [address] [place] [address] SURGERY 11/17/24
--- OUTSIDE RECORDS SUMMARY | 2025-02-22 17:34 | XMS_ITS | Clinical Summary ---
Author Organization [facility] Address [address] [facility] [place] [address] Phone Care Team Providers Care Sas Administrator Name Role Phone Unavailable Primary Care Provider [...] now. Urged patient to re-establish with previous paving inspector for management. Need back on insulin pump [...] long acting insulin with SSI F/u with paving inspector Last Assessment & Plan: -Brittle DM1 -Home [...] (PF) 02/14/2021 MMR 12/03/2000,10/12/1996 PPD Test 05/22/2016 [employer] COVID-19 Vaccine 01/24/2021 Poliovirus Trivalent Vaccine , [...] PM CDT Legal Sex Female 12:26 PM [employer] Gender Identity Female 11/05/2020 3:34 PM CDT Sexual Orientation Straight 11/05/2020 3: 34 PM CDT Last Filed Vital Signs Vital Sign Reading Time Taken Comments Blood Pressure 138/78 06/24/2022 7:47 PM [employer] Pulse 95 06/24/2022 7:47 PM [employer] Temperature 37 C (98.6 F) 06/24/2022 6:25 PM [employer] Respiratory Rate 22 06/24/2022 7:47 PM [employer] Oxygen Saturation 100% 06/24/2022 7:47 PM [employer] Inhaled Oxygen Concentration - - Weight 54.4 kg (120 lb) 06/24/2022 4:51 PM [employer] Height 162.6 cm (5' 4) 12/03/2021 10:40 [...] COMPREHENSIVE METABOLIC PANEL STAT 06/24/2022 5:05 PM [employer] MICROALBUMIN/CREATININ E URINE RANDOM Routine 02/12/2021 3:35 PM CDT Type 1 diabetes mellitus with diabetic neuropathy (HCC ) HEMOGLOBIN A1C Routine 01/16/2021 3:32 AM CDT HEPATITIS PANEL, ACUTE STAT 8:38 PM CDT from Last 3 Months or Most Recently Relevant to Health Maintenance Results * (ABNORMAL) Comprehensive metabolic panel (06/24/2022 5:05 PM DIRECT[employer]) Sodium 139 135 - 145 mmol/L 06/24/2022 5:38 PM [employer]TS [facility] Potassium 4.4 3.5 - 5.0 mmol/L 06/24/2022 5:38 PM [facility] Chloride 108(H) 98 - 107 mmol/L 06/24/2022 5:38 PM [facility] Carbon Dioxide 23 21 - 32 mmol/L 06/24/2022 5:38 PM [facility] Anion Gap 8 6 - 16 mmol/L 06/24/2022 5:38 PM [facility] Glucose 421(HH) 70 - 110 mg/dL 06/24/2022 5:38 PM [facility] BUN 33(H) 7 - 18 mg/dL 06/24/2022 5:38 PM [facility] Creatinine 2.70(H) 0.60 - 1.30 mg/dL 06/24/2022 5:38 PM [facility] BUN/Creatinine Ratio 12.2 11.7 - 13.9 06/24/2022 5:38 PM [facility] Calcium 8.9 8.5 - 10.1 mg/dL 06/24/2022 5:38 PM [facility] Comment:Calcium measurements are adversely affected by the use of Omniscan during MRI. Analysis of calcium is not recommended for 12 to 24 hours after the use of the contrast agent. Protein total 7.5 6.4 - 8.2 g/dL 06/24/2022 5:38 PM [facility] Albumin 2.8(L) 3.4 - 5.0 g/dL 06/24/2022 5:38 PM [facility] Bilirubin Total 0.2 0.0 - 1.0 mg/dL 06/24/2022 5:38 PM [facility] Comment:Use of this assay is not recommended for patients undergoing treatment with eltrombopag due to the potential for falsely elevated results. AST 39(H) 7 - 34 U/L 06/24/2022 5:38 PM [facility] ALT 77(H) 16 - 62 U/L 06/24/2022 5:38 PM [facility] ALP 224(H) 50 - 136 U/L 06/24/2022 5:38 PM [facility] eGFR non- 21.1(L) >=60.0 mL/min/1.7 3m2 06/24/2022 5:38 PM [facility] eGFR 25.6(L) >=60.0 mL/min/1.7 3m2 06/24/2022 5:38 PM [facility] Comment:The estimated GFR is based on the Modification of Diet in Renal Disease Study (MDRD) equation using average adult body surface area. This equation has not been validated for use with age groups below 18 or over 70, women, patients with serious co-morbid conditions, or persons with extremes of body size, muscle mass or nutritional status. Blood 06/24/2022 5:05 PM [employer] 06/24/2022 5:05 PM [employer] us Cony Alexander DO LAB BLOOD ORDERABLES Fin al Result Performing Organization Address City/[facility]/ZIP Co de Phone Number [facility] [address] [address] * (ABNORMAL) Microalbumin/Creatinine Urine (02/12/2021 3:35 PM CDT) Pathologist [facility] Creatinine Urine 10.00 10.00 - 300.00 mg/dL 02/13/2021 11:03 AM CDT [facility] Microalbumin urine 150(H) <=20 mg/L 02/13/2021 11:03 AM CDT [facility] Microalbumin/cre atinine urine >300 mg/g creatinine 02/13/2021 11:03 AM CDT [facility] Urine URINE SPECIMEN / Unknown Collection / Unknown 02/12/2021 3:35 PM CDT 02/12/2021 3:35 PM CDT us Devang Fan DO URINE ORDERABLES Final Re sult [facility] [address] [address] * (ABNORMAL) Hemoglobin A1c (01/16/2021 3:32 AM CDT) Hemoglobin A1c >14.0(H) 4.5 - 6.2 % 01/16/2021 7:05 AM CDT [facility] Blood Venipuncture / Unknown 01/16/2021 3:32 AM CDT 01/16/2021 3:34 AM CDT us Betty Johansen MD LAB BLOOD ORDERABLES Fin al Result [facility] [address] [place] [address] * Hepatitis Panel, Acute (08/10/2020 8:38 PM [...] Unless otherwise indicated, all testing performed at: [employer] [address] [place] [address] Commissary Officer: IZA GILES M[facility]# [id number] Blood Venipuncture / Unknown 08/10/2020 8:38 PM CDT 08/10/2020 8:44 PM CDT us Xin Alejandre MD LAB BLOOD ORDERABLES Final Result [address] [address] from Last 3 Months or Most Recently Relevant to Health Maintenance Insurance MEDICAID [place] Advance Directives For more information, please contact: [phone] (7AM - 5PM [facility], 7 days a week) * [...]
--- OUTSIDE RECORDS SUMMARY | 2025-02-22 17:34 | XMS_ITS | Clinical Summary ---
Author Organization [facility] Address [address] [place] [address] Care Team Providers Care What Job Titles Mean Name Role Phone Andrei Chaves MD PhD Unavailable [phone] Olivia Phelps MD Unavailable [phone] Edgardo Aldridge MD Primary Care Provider Odilon Tellez MD Unavailable [phone] Ayaka Thomas MD Unavailable [phone] Yumi Jones NP Unavailable [phone] Odilon Tellez MD Unavailable [phone] Allergies Active Allergy Reactions Criticality Noted Date Comments Adhesive Rash,Unknown Medium 03/11/2017 Adhesive Tape-Silicones Rash Medium 03/11/2017 Diphenhydramine Other (See comments) 12/11/2024 IV contraindicated Patient reports not allergic too Hydralazine Anaphylaxis,Hive s,Swelling,Angio edema,Urticaria High 06/29/2018 Hives on face and was not able to swallow Metoclopramide Muscle pain,Other (See comments) High 03/29/2020 Uncontrolled movements; Extrapyramidal symptoms Extrapyramidal symptoms Trimethobenzamide Swelling Medium 01/11/2024 Medications blood-glucose meter,continuous (Dexcom G6 Investigative Assistant) miscIndications:Unc ontrolled type 1 diabetes mellitus with hyperglycemia, with long-term current use of insulin (HCC) 1 Dexcom G6 Investigative Assistant 1 each 023 Active OneTouch Delica Plus Lancet 33 gauge misc Use to test BG 4x/day 100 each 024 Active OneTouch Verio Flex meter misc Use as directed to check BG 1 each 024 Active insulin syringe-needle U-100 (BD Insulin Syringe Ultra-Fine) 0.3 mL 31 gauge x 5/16 syringe Use to inject insulin 4 times per day as back up to insulin pump. 100 each 024 Active insulin syr/ndl U100 half sharlene 0.3 mL 31 gauge x 15/64 syringe Use as directed 3 times a day 50 each 1 024 Active alcohol swabs (Alcohol Wipes) pads, medicated Use as directed. 100 each 024 Active escitalopram (LEXAPRO) 10 mg tablet Take 1 tablet (10 mg total) by mouth daily 90 tablet 3 024 Active losartan (COZAAR) 100 mg tablet Take 1 tablet (100 mg total) by mouth daily 90 tablet 3 024 Active Omnipod 5 G6-G7 Pods, Gen 5, [...] 1 box = 3 sensors. 3 each 025 Active blood-glucose transmitter (Dexcom G6 Transmitter) [...] 3 (three) times a day 180 mL 025 2025 Active pantoprazole (PROTONIX) 40 mg granules [...] 024 2024 Discontinued( Stop Taking at Discharge) pantoprazole DR (PROTONIX) 40 mg EC tablet [...] day with meals 025 2024 Discontinued insulin glargine (LANTUS) 100 [...] kidney, consider outpatient followup (e.g. renal US). clinical dietetic technician associated with adverse incidents 01/09/2025 Overview (01/09/2025): [...] - ADAT: tolerating some solid food, TF () at goal 45ml/hr - if tube is [...] can try viokace + bicarbonate given response 10 AM. - prn antiemetics - RD aware: [...] admission. Assessment & Plan (05/13/2022 9:19 AM STONE RIGGER): Glucose overall improved Continue current regimen Given [...] xanx Assessment & Plan (05/15/2020 6:30 AM STONE RIGGER): Uncontrolled Start cymbalta, xanax Odynophagia 04/09/2020 DKA [...] not be able to see her own flatbed driver until September. Continue to monitor. Hold any [...] mostly IV dilaudid and was on a CERTIFIED LOW VISION THERAPIST briefly. - continues to have severe abdominal [...] same. Plan change to esophageal diet today. Engine Installer to review prior to dc Plan f/u with Dr Chaves in GI as OP Assessment & Plan (03/31/2022 5:47 PM STONE RIGGER): Type 1 diabetic Cyclical vomiting, gastroparesis - [...] year. Has an appointment for GI in [place] next month. Currently is on SSI, but [...] q1hr Assessment & Plan (05/15/2020 2:56 PM STONE RIGGER): Needs letter for another 2 weeks off and when returns needs intermittent restrictions on return with no more than 3 days per week, but not consecutive 3 days Assessment & Plan (05/15/2020 6:29 AM STONE RIGGER): Uncontrolled Cont treatment per GI Cont reglan Has PICC line Assessment & Plan (06/27/2019 8:44 AM CDT): - Chronic emesis which triggers DKA. No active symptoms now. - PCP follow up. - Glucose control as above. Assessment & Plan (04/21/2019 1:24 PM STONE RIGGER): -Patient reports h/o positive gastric emptying study [...] had discussion with patient regarding pain control. tank terminal gauger opioids would be a very poor choice for her, given her gastroparesis, young age, and potential for developing dependence/addiction. Will not discharge on opioids. Assessment & Plan (04/20/2019 6:16 PM STONE RIGGER): -Patient reports h/o positive gastric emptying study [...] fluids Assessment & Plan (03/29/2020 5:23 AM STONE RIGGER): Uncontrolled Cont long acting insulin with SSI F/u with coal gasification technician Assessment & Plan (03/20/2020 5:26 AM STONE RIGGER): Uncontrolled Cont insulin pump per endocrinology Vitamin [...] losartan Assessment & Plan (03/31/2022 5:47 PM STONE RIGGER): Not at goal Pt left office today [...] 10mg Assessment & Plan (03/29/2020 5:24 AM STONE RIGGER): Stable Cont lisinopril, amlodipine Assessment & Plan [...] lisinopril. Assessment & Plan (06/12/2019 12:12 PM STONE RIGGER): continue lisinopril and toprol xl , clonidine patch Assessment & Plan (06/11/2019 1:52 PM STONE RIGGER): _BP better today , continue lisinopril and toprol xl Assessment & Plan (05/07/2019 2:03 PM STONE RIGGER): On clonidine, metoprolol and lisinopril at home. - continue home clonidine and metoprolol - hold lisinopril for now (? EUGENIE related intestinal angioedema). May need to consider alternative anti-hypertensive if needed as a trial. Assessment & Plan (04/28/2019 4:43 PM STONE RIGGER): - Cont home meds Assessment & Plan (04/27/2019 2:59 PM STONE RIGGER): - Cont home meds Assessment & Plan (04/21/2019 12:59 PM STONE RIGGER): Clonidine patch and metoprolol XL -BP stable Assessment & Plan (04/11/2019 12:43 PM STONE RIGGER): Cont lisinopril and Toprol XL, and due for change of clonidine patch Assessment & Plan (04/10/2019 11:29 AM STONE RIGGER): BP elevated this am but improved after [...] 11/29/2023 02/16/2024 Gastroparesis due to DM 11/22/2023 070 12/2024 Abdominal pain 11/10/2023 02/16/2024 MRSA bacteremia 10/27/2023 02/16/2024 Shortness of breath 10/23/2023 02/16/20 24 Perirectal abscess 10/23/2023 Anemia 10/23/2023 02/16/2024 Type 1 diabetes mellitus wit h ketoacidosis without coma 09/23/2023 10/19/2023 Disorder of phosphorus metab olism, unspecified 09/03/2023 02/16/2024 Hyperglycemia due to diabetes mellitus 08/28/2023 10/19/2023 Diarrhea, unspecified 08/19/20232023 Gastroparesis due to DM 07/31/2023 070 05/2023 Hypocalcemia 07/25/2023 10/19/2023 Hyponatremia 07/25/2023 10/19/2023 [...] be an option per palliative consult at [facility]. She is no longer wishing for [...] 1400mL 07/06, but pt refusing catheterization. On SUSTAINABLE AGRICULTURE FACULTY already, but at risk for bladder perforation. [...] now controlled. Plan dc home today with [facility], orders placed 07/07. Transition meds to PO at discharge, as pt tolerating diet. Discharge Planning I have spent 30 minutes on discharge planning activities. Time spent was on Coordination of care, Follow up , Counselling with patient/family, discharge exam, parent/patient education, PCP communication, and Other provider communication. Assessment & Plan (06/15/2023 3:17 AM STONE RIGGER): Related with gastroparesis. See gastroparesis section Type [...] well, related to diabetes. Counseled on terminal clerk effects of poorly controlled diabetes by multiple [...] discharged from ED. Came to [facility] ED on 07/12, again discharged from ED. Returned to [facility] on 07/13 with same symptoms and admitted [...] discharged from ED. Came to [facility] ED on 07/12, again discharged from ED. Returned to [facility] on 07/13 with same symptoms and admitted [...] 12/22/2022 Assessment & Plan (05/15/2020 6:30 AM STONE RIGGER): Will need to get flushed Weight loss [...] now. Urged patient to re-establish with previous coal gasification technician for management. Need back on insulin pump [...] Assessment & Plan (07/31/2021 3:08 PM CDT): Dietitikobe cody Assessment & Plan (06/07/2020 3:17 PM STONE RIGGER): Persistent Cont reglan, zofran, compazine Refer to new gi Nausea & vomiting 05/07/2019 06/15/2023 Assessment & Plan (03/29/2020 5:23 AM STONE RIGGER): Uncontrolled Secondary to severe gastroparesis Will try scopolamine patch Cont zofran, compazine prn Assessment & Plan (06/12/2019 12:13 PM STONE RIGGER): -resolved -continue home meds, tolerating diet -has h/o cyclical vomiting and follows with GI -Reports benefit from recently added Motegrity and amitriptyline. She is on a low dose amitriptyline 25mg QHS. Will increase to 50mg QHS. Pt reports some restless leg side effects, advised her to watch carefully and reduce dose if RLS worsens. Assessment & Plan (06/11/2019 1:55 PM STONE RIGGER): -resolved -continue home meds, tolerating diet -has h/o cyclical vomiting and follows with GI Assessment & Plan (05/07/2019 1:59 PM STONE RIGGER): Previously seen by GI and felt to [...] 07/19/2023 Assessment & Plan (03/31/2022 5:48 PM STONE RIGGER): Seen by GI Fluids given Assessment & [...] GI Assessment & Plan (06/07/2020 3:17 PM STONE RIGGER): Persistent Cont jonny rodriguez, compazine Refer to new gi Assessment & Plan (05/31/2020 2:18 PM STONE RIGGER): Uncontrolled Cont treatment per GI Has PICC line Assessment & Plan (05/15/2020 6:29 AM STONE RIGGER): Uncontrolled Cont treatment per GI Has PICC line Assessment & Plan (03/20/2020 5:26 AM STONE RIGGER): Uncontrolled Cont treatment per GI To refer [...] up. Assessment & Plan (04/28/2019 4:43 PM STONE RIGGER): - Seen by GI last admission. Thought that available data and history more consistent with [facility]. - Started on low dose amitriptyline, will increase to 50mg - Uses promethazine for N/V Assessment & Plan (04/27/2019 2:53 PM STONE RIGGER): - Seen by GI last admission. Thought [...] considered. Assessment & Plan (05/07/2019 2:02 PM STONE RIGGER): Has not yet started Motegrity at home due to issues with pharmacy. No BM in 3 days per patient. - start motegrity 2mg qd Assessment & Plan (04/28/2019 4:43 PM STONE RIGGER): - Had BM after none for 5 days. Rx'd prucalopride last admission, just today arrived to pharmacy so not taken. She reports that she received opioids for the first time last admission - Will hold for now as she says she alternates with diarreha. Assessment & Plan (04/27/2019 3:00 PM STONE RIGGER): - Had BM after none for 5 [...] consult Assessment & Plan (05/15/2020 6:30 AM STONE RIGGER): PICC line in place because of need for recurrent IVF Assessment & Plan (06/27/2019 8:49 AM CDT): - 2/2 diabeters and chronic poor control and long standing cyclic vomiting and gastroperesis. Diet as tolerated, diabetic diet. Assessment & Plan (06/12/2019 12:12 PM STONE RIGGER): -Continue supplements as tolerated Dehydration 04/25/2019 07/19/2023 [...] recs Assessment & Plan (04/21/2019 12:59 PM STONE RIGGER): -Engine Installer consult, supplements as recommended. Patient doesn't like taste of many supplements Assessment & Plan (04/11/2019 12:43 PM STONE RIGGER): Treating nausea and encourage more regular food [...] gastroparesis. Assessment & Plan (06/12/2019 12:11 PM STONE RIGGER): - weaned off isulin drip , now [...] today Assessment & Plan (06/11/2019 1:55 PM STONE RIGGER): - weaned off onsulin drip , now [...] . Assessment & Plan (04/28/2019 4:43 PM STONE RIGGER): - Recurrent admissions, seem to be brought [...] intake Assessment & Plan (04/27/2019 2:59 PM STONE RIGGER): - Recurrent admissions, seem to be brought [...] outpatient Assessment & Plan (04/21/2019 1:02 PM STONE RIGGER): -DKA resolved after IV insulin, IVF and electrolyte repletion in ICU Assessment & Plan (04/20/2019 6:13 PM STONE RIGGER): -DKA resolved after IV insulin, IVF and electrolyte repletion in ICU Assessment & Plan (04/11/2019 12:48 PM STONE RIGGER): Presented with N/V which she felt was [...] closely Assessment & Plan (04/10/2019 11:28 AM STONE RIGGER): Presented with N/V which she felt was due to gastroparesis flare, in DKA on admission. Anion gap closed, received 18 Units Lantus before midnight. Cont present SQ insulin orders, monitor sugars closely Diabetes education ordered Discharge home once tolerating po later today or tomorrow Concussion with loss of consciousness 11/08/2018 03/31/2022 Polyneuropathy 11/08/2018 12/22/2022 Diabetes mellitus 11/08/2018 03/31/2022 Diabetes mellitus with gastr oparesis ([facility]) 07/07/2018 03/31/2022 Assessment & Plan (07/31/2021 11:00 [...] to repetitive movements c/w tardive dyskinesia. - in service educator - Political Analyst - on sliding scale only for now, will add on basal+bolus regimen if necessary - follow POC glucose checks Assessment & Plan (07/14/2021 6:35 PM CDT): Patient had been on insulin pump but stopped using it once she was admitted to [facility] on 07/02. Was previously on Reglan but discontinued due to repetitive movements c/w tardive dyskinesia. - in service educator - Political Analyst - on sliding scale only for now, will add on basal+bolus regimen if necessary - follow POC glucose checks Assessment & Plan (04/11/2019 12:42 PM STONE RIGGER): Longstanding gastroparesis per patient. Recently admitted at [facility] but left 2-3 days prior to admission here as she says she was unhappy with her care. Nausea recurred this am but no vomiting. Will resume IVF if she doesn't tolerate lunch. I reviewed some records from [facility] and found a gastric emptying study done in [place] which was normal, though this doesn't exclude gastroparesis I wonder if there is a functional component as well Regardless, cont supportive care with prn Zofran and added prn Compazine Assessment & Plan (04/10/2019 11:29 AM STONE RIGGER): Longstanding gastroparesis per patient. Recently admitted at [facility] but left 2-3 days prior to admission here as she says she was unhappy with her care. Cont prn antiemetics, she says Reglan didn't help in the past Outpatient GI F/U Resume IVF if she starts vomiting again Assessment & Plan (02/03/2019 9:53 AM CDT): Well controlled now since seeing coal gasification technician and using OmniPod. She is cleared to [...] AM. Assessment & Plan (05/07/2019 1:58 PM STONE RIGGER): History of brittle diabetes with multiple recent [...] AM Assessment & Plan (04/21/2019 1:21 PM STONE RIGGER): -Home regimen lantus 24u QAM, humalog 1 [...] count (which we do not do at [facility]) -D/c home, close f/u as outpatient Assessment & Plan (04/20/2019 6:14 PM STONE RIGGER): -Home regimen lantus 24u QAM, humalog 1 unit per 5 gram carb, SSI -Hospital regimen lantus 15units QAM, lispro 3 unit TID, Mid dose SSI -Her diet intake has been very unpredictable 2/2 gastroparesis, so I am intentionally underdosing mealtime insulin to avoid hypoglycemia. Assessment & Plan (08/24/2018 2:44 PM CDT): Diabetes is unchanged. cont long acting insulin until sees coal gasification technician ETD (Eustachian tube dysfunction), bilateral 8 07/19/2023 Diabetic gastroparesis ([facility]/HCC) 05/22/2017 03/31/2022 Overview (01/08/2020): Last Assessment & Plan: Longstanding gastroparesis per patient. Recently admitted at [facility] but left 2-3 days prior to admission here as she says she was unhappy with her care. Nausea recurred this am but no vomiting. Will resume IVF if she doesn't tolerate lunch. I reviewed some records from [facility] and found a gastric emptying study done in [place] which was normal, though this doesn't exclude gastroparesis I wonder if there is a functional component as well Regardless, cont supportive care with prn Zofran and added prn Compazine Assessment & Plan (08/04/2020 4:13 PM CDT): Chronic Cont regjonny martinez Has f/u with GI Assessment & Plan (06/07/2020 3:16 PM STONE RIGGER): Persistent Cont reglan, zofran, compazine Refer to new gi Assessment & Plan (03/29/2020 5:22 AM STONE RIGGER): Severely uncontrolled To f/u with Gi Recommended patient d/w GI about tube feedings She agrees to do so Assessment & Plan (03/20/2020 5:26 AM STONE RIGGER): Uncontrolled Cont treatment per GI To refer [...] Encounters Date Type Department Care Team Description 02/21/2025 11:45 AM STONE RIGGER Office Visit [facility] Medicine [address] [place] [address] [address] [place] [address] Sussy Garcia PA Right ankle pain, unspecified chronicity (Primary Dx); Arthritis of right midfoot; Acquired pes planovalgus of right foot; Arthrosis of right ankle 02/19/2025 Telephone [facility] [address] [place] [address] [address] [place] [address] Sussy Garcia PA ICU 01/29/2025 Telephone [facility] Family Medicine at [address] [place] [address] Edgardo Aldridge MD 01/29/2025 Telephone [facility] [address] [place] [address] Outpatient Health 3rd Floor [address] [place] [address] Chyna Kay MA Scheduling Appointments 01/24/2025 Telephone [facility] [address] [place] [address] [address] [place] [address] Sussy Garcia PA req a cb about surg; FYI 01/15/2025 3:03 PM CDT - 01/26/2025 11:15 AM CDT Hospital Encounter [facility] [address] [place] [address] Odilon Correa MD PhD Anne-Marie, MD Jo Kennedy Jerry, MD PhD Juvencio, Devang Childers MD Nausea and vomiting, unspecified vomiting type (Primary Dx); History of gastrostomy; Abdominal pain; High anion gap Discharge Disposition: Discharge to home or self care 01/14/2025 3:48 PM CDT - 01/14/2025 5:25 PM CDT Emergency [facility] Emergency Department [facility] [place] [address] Leo August DO Encounter for attention to gastrostomy (HCC) (Primary Dx) Discharge Disposition: Discharge to home or self care 01/12/2025 Telephone [facility] Transplant Kidney [address] [facility] [phone] [place] [address] Mavis Barahona RN 01/09/2025 9:27 AM CDT Anesthesia Event [facility] Imaging [address] [place] [address] Jeferson Pascal MD 01/09/2025 Orders Only Radiology 1 [place] [address] Jamie Bell MD 01/08/2025 5:49 PM CDT - 01/12/2025 2:21 PM CDT Hospital Encounter [facility] [address] [place] [address] Viraj Olivo MD Heath, MD Anne-Marie Hernández, MD Paula Kennedy, Yareli Nelson MD Gastroparesis due to secondary diabetes (HCC) (Primary Dx); Diabetes mellitus with gastroparesis (HCC) Discharge Disposition: Discharge to home or self care 01/08/2025 10:30 AM CDT Office Visit [facility] Medical Group Orthopedics and Sports Medicine [address] [address] Raul Clark DO Right ankle pain, unspecified chronicity (Primary Dx); Lisfranc dislocation, left, subsequent encounter; Arthritis of right midfoot; Acquired pes planovalgus of right foot; Arthrosis of right ankle 01/08/2025 10:10 AM CDT - 01/08/2025 11:59 PM CDT Hospital Encounter [facility] Diag Imaging [address] [place] [address] Right ankle pain, unspecified chronicity; Lisfranc dislocation, left, subsequent encounter Discharge Disposition: Discharge to home or self care 01/08/[address] [facility] Gastroenterology [address] [place] [address] [place] [address] Yodit Ayers RN 01/04/2025 Documentation [facility] Medicine Gastroenterology [address] [place] [address] [place] [address] Young Vasquez MD 01/02/2025 Telephone [facility] Radiology 1 [place] [address] Jaimie Foster RN 12/29/2024 Results Follow-Up [facility] Medical Group Family Medicine at [address] [place] [address] Edgardo Aldridge MD SCAN - RADIOLOGY/IMAGING 12/28/2024 Documentation [facility] Medicine Gastroenterology [address] [place] [address] Medical Office Building [address] [place] [address] Jaimie Manriquez, KADY Consult from [facility] 12/28/2024 Results Follow-Up [facility] Medicine Gastroenterology [address] [place] [address] [place] [address] Young Vasquez MD Surgical pathology 12/26/2024 8:46 AM CDT Anesthesia Event [facility] [address] [address] Dylan Frias MD Kandachar, Mohan Dubois MD 12/26/2024 8:45 AM CDT - 12/26/2024 9:45 AM CDT Surgery [facility] [address] [facility] [address] [place] [address] Young Vasquez MD COLON BIOPSY 12/26/2024 6:53 AM CDT - 12/26/2024 11:18 AM CDT Hospital Encounter [facility] [place] [id number] [facility] [address] [place] [address] Young Vasquez MD Perirectal fistula; Gastroparesis Discharge Disposition: Discharge to home or self care 12/26/2024 6:40 AM CDT Lab [facility] [address] [place] [phone] Dialysis patient; Pre-procedure lab exam 12/26/2024 Results Follow-Up [facility] Gastroenterology [address] [place] [address] Medicine 12th [place] [address] [place] [address] Abdomen and Pelvis Enterography W Contrast 12/25/2024 11:57 AM CDT - 12/25/2024 11:59 PM CDT Hospital Encounter [facility] Radiology [facility] ([facility]) [address] [place] [address] Perirectal fistula Discharge Disposition: Discharge to home or self care 12/22/2024 12:28 PM CDT - 12/22/2024 11:59 PM [place] [address] Closed displaced trimalleolar fracture of right ankle, initial encounter; Acute right ankle pain; Flat foot (pes planus) (acquired), right foot Discharge Disposition: Discharge to home or self care 12/22/2024 12:27 PM CDT - 12/22/2024 11:59 PM CDT Hospital Encounter [place] [id number] Lisfranc dislocation, right, initial encounter; Acute pain of right foot; Flat foot (pes planus) (acquired), right foot Discharge Disposition: Discharge to home or self care 12/22/2024 Orders Only [facility] Information Management [address] [place] [address] Edgardo Aldridge MD 12/20/2024 Telephone [facility] Transplant Kidney [address] [facility] [address] [phone] [place] [address] Julissa Urban Referral - Kidney Txp 12/19/2024 Telephone [facility] Specialty Services [address] [place] [address] Bri Anton RN GI PROCEDURE 7 DAY PRE CALL 12/07/2024 1:00 PM CDT Office Visit [facility] Medical [facility] Medicine [address] [place] [address] [address] [place] [address] Raul Clark DO Acute pain of right foot (Primary Dx); Right ankle pain, unspecified chronicity; Lisfranc dislocation, right, initial encounter; Closed displaced trimalleolar fracture of right ankle, initial encounter; Acute right ankle pain; Flat foot (pes planus) (acquired), right foot 12/07/2024 12:51 PM CDT - 12/07/2024 11:59 PM CDT Hospital Encounter [facility] Diag Imaging [facility] [place] [address] Right ankle pain, unspecified chronicity Discharge Disposition: Discharge to home or self care 12/05/2024 Telephone [facility] Transplant Kidney [address] [facility] [address] [phone] [place] [address] Julissa Urban Referral - Kidney Txp 11/28/2024 Telephone [facility] Nephrology at [place] [id number] [facility] [address] [place] [id number] Odilon Tellez MD 11/23/2024 Results Follow-Up [facility] Medical [facility] Family Medicine at [address] [place] [address] Edgardo Aldridge MD SCAN - RADIOLOGY/IMAGING 11/22/2024 Results Follow-Up [facility] Medical Group Family Medicine at [address] [place] [address] Edgardo Aldridge MD XR Ankle Right 3+ Vw from Last 3 Months Immunizations Immunization Administration [...] often do you attend chur ch or mormonism services? Never 11/07/2024 Do you belong to [...] Date Recorded PHQ-2 Total Score 0 01/09/2025 [facility] [place] [facility] Occup[facility] ional Health - Occupational Stress [...] any time in the past 12 [facility], were you homeless or living [...] often do you attend chur ch or mormonism services? Never 01/17/2025 Do you belong to [...] any time in the past 12 [facility], were you homeless or living in a snf (including now)? No 01/17/2025 [facility] Utilities Answer Date Recorded In the past 12 months has th e [employer], gas, oil, or water company threatened to [...] on file Legal Sex Female 9:16 AM STONE RIGGER Gender Identity Not on file Sexual Orientation [...] CDT Inhaled Oxygen Concentration - - Weight 68 kg (150 lb) 02/21/2025 11:55 AM STONE RIGGER Height 162.6 cm (5' 4) 02/21/2025 11:55 AM STONE RIGGER Body Mass Index 25.75 02/21/2025 11:55 AM STONE RIGGER Plan of Treatment Health Maintenance Due Date Last Done Comments Cervical Cancer Screening 1995 Foot Exam 1995 Varicella Vaccines (2 of 2 - 2-dose childhood series) 12/31/2000 10/12/1996 Dilated Eye Exam 06/16/2005 DTaP/Tdap/Td Vaccine (6 - Tdap) 06/16/2006 12/03/2000, 01/17/1998, 07/10/1996, Additional history exists Regular Well Visit/Exam 18-64 06/16/2013 Pneumococcal vaccine <65 (1 of 2 - PCV) 06/16/2014 Zoster Vaccine (1 of 2) 06/16/2014 Covid-19 Vaccine (2 - Pfizer risk series) 02/14/2021 01/24/2021 HPV Vaccines (1 - 3-dose SCD M series) 06/16/2022 Hemoglobin A1C 05/02/2025 10/30/2024, 10/17, 07/28/2024, Additional history exists Lipid Panel 12/04/2025 12/04/2024, 10/17, 09/23/2023, Additional history exists TSH Level 12/10/2025 12/10/2024, 07/0 05/2024, 08/20/2024, Additional history exists Depression Screening 01/08/2026 01/08/2025, 10/29/2024, 2024, Additional history exists eGFR 01/25/2026 01/25/2025, 11/2024, 01/23/2025, Additional history exists Hepatitis B Screening Completed 09/02/2023 , 07/20/2023, 1995, Additional history exists Hepatitis C Screening Completed 12/24/2023 , 11/29/2023, 05/25/2023, Additional history exists Influenza Vaccine Completed 01/18/2025, , 02/16/2023, Additional history exists Albumin Creatinine Ratio, Urine Discontinued Medical Devices Implanted Type Area Physical Testing Supervisor Device Identifier Shelf Expiration Date Model / Serial / Lot Raquel [employer] Trialysis 13fr 24cm Dialysis Tray Catheter Sterile Short Term [id number] - [id number] Implanted:Qty: 1 on 10/27/2023 by Juan Long MD at [facility] Catheter Right: Groin Raquel [employer] [id number] 07/17/2024 [id number] / / [id number] [employer] Symmetry Vesolock Large Clip Internal [id number] - Sn/A - [id number] Implanted:Qty: 1 on 10/05/2022 by Andrei Chaves MD PhD at [facility] Clip N/A: Abdomen [employer] 04/19/2025 [id number] / N/A / Med[employer] Enterra 35cm Lead Unipolar Kit Stimulator 4351-35 - [id number] - [id number] Implanted:Qty: 1 on 10/05/2022 by Andrei Chaves MD PhD at [facility] Stimulator N/A: Abdomen [employer] 06/04/2024 4351-35 / [id number] / [employer] Enterra 35cm Lead Unipolar Kit Stimulator 4351-35 - [id number] - [id number] Implanted:Qty: 1 on 10/05/2022 by Andrei Chaves MD PhD at [facility] Stimulator N/A: Abdomen [employer] 08/10/2024 4351-35 / [id number] 2V / Med[employer] Neurostimulator Implantable 2.4inx2.2in Enterra Ii Gastric 97638 - [id number] - [id number] Implanted:Qty: 1 on 10/05/2022 by Andrei Chaves MD PhD at [facility] Stimulator N/A: Abdomen [employer] 11/30/2022 [id number] / [id number] / N/A Stir Duraflow Embosafe 15.5fr 24cm Basic 2 Lumen Kit Catheter [id number] - [id number] Implanted:Qty: 1 on 11/03/2023 by Skip Huddleston MD at [facility] Stir 01/16/2026 [id number] / / Procedures Procedure Name Priority Date/Time [...] PLACEMENT IP Routine 01/09/2025 10:32 AM CDT IN AN PROCEDURE PLACEHOLDER Routine 12/19 9:43 AM CDT IN AN ELECTIVE ENDOTRACHEAL AIRWAY Routine 01/09/2025 9:43 [...] AM CDT COLONOSCOPY 12/26/2024 9:16 AM CDT IN AN PROCEDURE PLACEHOLDER Routine 12/2024 9:02 AM CDT IN AN ELECTIVE ENDOTRACHEAL AIRWAY Routine 12/26/2024 9:02 [...] PM CDT Right ankle pain, unspecified chronicity HEMOGLOBIN A1C Routine 10/30/2024 2:24 AM CDT LIPID PANEL STAT 10/29/2024 8:13 PM CDT TSH Routine 01/09/2024 3:52 PM CDT [...] last revised on 2013. POC Device Number [id number] [employer] Blood 01/26/2025 10:3 6 AM CDT 01/26/2025 10:36 AM CDT Devang Henning MD LAB POCT ORDERABLES - DEVICE Final Result HERBER JIMENEZWCH [address] [facility] Department [place] [address] * POCT glucose (01/26/2025 8:22 AM CDT) Glucose, POC 81 70 - 199 mg/dL Comment: Interpretive Data Glucose is assumed to be non-fasting. Fasting Glucose reference ranges are: 0 - 150 years: 70 mg/dL - 99 mg/dL Current interpretive data was last revised on 2013. POC Device Number [id number] 1 [employer] Blood 01/26/2025 8:22 AM CDT 01/26/2025 8:22 AM CDT Devang Henning MD LAB POCT ORDERABLES - DEVICE Final Result Performing Organization Address [facility] Co de Phone Number HERBER REINACH [address] [facility] [place] [address] * POCT glucose (01/26/2025 5:50 AM CDT) Glucose, POC 81 70 - 199 mg/dL Comment: Interpretive Data Glucose is assumed to be non-fasting. Fasting Glucose reference ranges are: 0 - 150 years: 70 mg/dL - 99 mg/dL Current interpretive data was last revised on 2013. POC Device Number [id number] 1 HERBER MARCANO Blood 01/26/2025 5:50 AM CDT 01/26/2025 5:50 AM CDT Devang Henning MD LAB POCT ORDERABLES - DEVICE Final Result Performing Organization Address [facility] de Phone Number HERBER JIMENEZWCH [address] [facility] [place] [address] * POCT glucose (01/26/2025 1:53 AM CDT) Glucose, POC 144 70 - 199 mg/dL Comment: Interpretive Data Glucose is assumed to be non-fasting. Fasting Glucose reference ranges are: 0 - 150 years: 70 mg/dL - 99 mg/dL Current interpretive data was last revised on 2013. POC Device Number [id number] 1 HERBER MARCANO Blood 01/26/2025 1:53 AM CDT 01/26/2025 1:53 AM CDT Devang Henning MD LAB POCT ORDERABLES - DEVICE Final Result Performing Organization Address City/[facility] Co de Phone Number HERBER JIMENEZWCH [address] [facility] [place] [address] * POCT glucose (01/25/2025 9:55 PM CDT) Glucose, POC 172 70 - 199 mg/dL Comment: Interpretive Data Glucose is assumed to be non-fasting. Fasting Glucose reference ranges are: 0 - 150 years: 70 mg/dL - 99 mg/dL Current interpretive data was last revised on 2013. POC Device Number [id number] 1 HERBER MARCANO Blood 01/25/2025 9:55 PM CDT 01/25/2025 9:55 PM CDT Devang Henning MD LAB POCT ORDERABLES - DEVICE Final Result Performing Organization Address [facility] Co de Phone Number HERBER BJWCH [address] [facility] [place] [address] * POCT glucose (01/25/2025 5:42 PM CDT) Glucose, POC 110 70 - 199 mg/dL Comment: Interpretive Data Glucose is assumed to be non-fasting. Fasting Glucose reference ranges are: 0 - 150 years: 70 mg/dL - 99 mg/dL Current interpretive data was last revised on 2013. POC Device Number [id number] 1 HERBER MARCANO Blood 01/25/2025 5:42 PM CDT 01/25/2025 5:42 PM CDT Devang Henning MD LAB POCT ORDERABLES - DEVICE Final Result Performing Organization Address [facility] Co de Phone Number [facility] BJWCH [address] [facility] [place] [address] * POCT glucose (01/25/2025 12:57 PM CDT) Glucose, POC 81 70 - 199 mg/dL Comment: Interpretive Data Glucose is assumed to be non-fasting. Fasting Glucose reference ranges are: 0 - 150 years: 70 mg/dL - 99 mg/dL Current interpretive data was last revised on 2013. POC Device Number [id number] 1 HERBER MARCANO Blood 01/25/2025 12:5 7 PM CDT 01/25/2025 12:57 PM CDT Devang Henning MD LAB POCT ORDERABLES - DEVICE Final Result Performing Organization Address [facility] Phone Number HERBER JIMENEZCH [address] [facility] [place] [address] * (ABNORMAL) POCT glucose (01/25/2025 12:39 PM CDT) Glucose, POC 64(L) 70 - 199 mg/dL Comment: Interpretive Data Glucose is assumed to be non-fasting. Fasting Glucose reference ranges are: 0 - 150 years: 70 mg/dL - 99 mg/dL Current interpretive data was last revised on 2013. POC Device Number [id number] HERBER JIMENEZWCH Glucose comment 1 RN/ Notified HERBER MARCANO Blood 01/25/2025 12:3 9 PM CDT 01/25/2025 12:39 PM CDT Devang Henning MD LAB POCT ORDERABLES - DEVICE Final Result Performing Organization Address [facility] Phone Number [facility] [address] [facility] [place] [address] * POCT glucose (01/25/2025 10:43 AM CDT) Glucose, POC 84 70 - 199 mg/dL Comment: Interpretive Data Glucose is assumed to be non-fasting. Fasting Glucose reference ranges are: 0 - 150 years: 70 mg/dL - 99 mg/dL Current interpretive data was last revised on 2013. POC Device Number [id number] 3 HERBER JIMENEZWCH Blood 01/25/2025 10:4 3 AM CDT 01/25/2025 10:43 AM CDT Devang Henning MD LAB POCT ORDERABLES - DEVICE Final Result Performing Organization Address [facility] Co de Phone Number HERBER REINACH [address] [facility] [place] [address] * POCT glucose (01/25/2025 9:08 AM CDT) Glucose, POC 90 70 - 199 mg/dL Comment: Interpretive Data Glucose is assumed to be non-fasting. Fasting Glucose reference ranges are: 0 - 150 years: 70 mg/dL - 99 mg/dL Current interpretive data was last revised on 2013. POC Device Number [id number] 3 HERBER MARCANO Blood 01/25/2025 9:08 AM CDT 01/25/2025 9:08 AM CDT Devang Henning MD LAB POCT ORDERABLES - DEVICE Final Result Performing Organization Address [facility] de Phone Number HERBER JIMENEZWCH [address] [facility] [place] [address] * POCT glucose (01/25/2025 7:51 AM CDT) Glucose, POC 99 70 - 199 mg/dL Comment: Interpretive Data Glucose is assumed to be non-fasting. Fasting Glucose reference ranges are: 0 - 150 years: 70 mg/dL - 99 mg/dL Current interpretive data was last revised on 2013. POC Device Number [id number] 3 HERBER JIMENEZWCH Blood 01/25/2025 7:51 AM CDT 01/25/2025 7:51 AM CDT Devang Henning MD LAB POCT ORDERABLES - DEVICE Final Result Performing Organization Address [facility] de Phone Number HERBER JIMENEZWCH [address] [facility] [place] [address] * POCT glucose (01/25/2025 5:21 AM CDT) Glucose, POC 129 70 - 199 mg/dL Comment: Interpretive Data Glucose is assumed to be non-fasting. Fasting Glucose reference ranges are: 0 - 150 years: 70 mg/dL - 99 mg/dL Current interpretive data was last revised on 2013. POC Device Number [id number] 3 HERBER MARCANO Blood 01/25/2025 5:21 AM CDT 01/25/2025 5:21 AM CDT us Devang Henning MD LAB POCT ORDERABLES - DEVICE Final Result HERBER JIMENEZWCH [address] [facility] [place] [address] * (ABNORMAL) eGFR (01/25/2025 5:18 AM CDT) [...] ORDERABLES Final Res ult Performing Organization Address [facility] Co de Phone Number [facility] BJWCH [address] [facility] [place] [address] * Magnesium (01/25/2025 5:18 AM CDT) Pathologist [facility] Magnesium 2.4 1.4 - 2.5 mg/dL Comment: Reference Data. Reference values for Labor and Delivery patients: < or = 0.7 mg/dL to > or = 7.3 mg/dL Current reference data last reviewd on 01/16/2015. Blood 01/25/2025 5:18 AM CDT 01/25/2025 5:54 AM CDT Devang Henning MD LAB BLOOD ORDERABLES Final Result Performing Organization Address [facility] de Phone Number [facility] BJWCH [address] [facility] [place] [address] * (ABNORMAL) Renal function panel (01/25/2025 5:18 AM CDT) Pathologist [facility] Sodium 137 135 - 145 mmol/L Potassium, pl 5.5(H) 3.3 - 4.9 mmol/L [facility] Chloride 98 97 - 110 mmol/L [facility] B[facility]W CO2 27 22 - 32 mmol/L [facility] Anion gap 12 2 - 15 mmol/L [facility] BUN 50(H) 6 - 25 mg/dL BANNERNER BJW Creatinine 5.75(H) 0.60 - 1.10 mg/dL [facility] Glucose 112 70 - 199 mg/dL [facility] Comment: Interpretive Data Fasting glucose >/= 126 [...] 2022. Calcium 9.3 8.5 - 10.3 mg/dL [facility] Phosphorus, pl 4.5 2.3 - 4.5 mg/dL [facility] Albumin 4.0 3.5 - 5.0 g/dL [facility] Blood 01/25/2025 5:18 AM CDT 01/25/2025 5:54 AM CDT Jeffrey Osorio MD PhD LAB BLOOD ORDERABLES Final Res ult Performing Organization Address [facility] Co de Phone Number [facility] [address] [facility] [employer] [place], [place] [id number] * POCT glucose (01/25/2025 2:02 AM CDT) Glucose, POC 181 70 - 199 mg/dL Comment: Interpretive Data Glucose is assumed to be non-fasting. Fasting Glucose reference ranges are: 0 - 150 years: 70 mg/dL - 99 mg/dL Current interpretive data was last revised on 2013. POC Device Number [id number] [facility] Blood 01/25/2025 2:02 AM CDT 01/25/2025 2:02 AM CDT Devang Henning MD LAB POCT ORDERABLES - DEVICE Final Result Performing Organization Address [facility] Co de Phone Number [facility] BJWCH [address] [facility] [place] [address] * (ABNORMAL) POCT glucose (01/24/2025 10:05 PM CDT) Glucose, POC 243(H) 70 - 199 mg/dL Comment: Interpretive Data Glucose is assumed to be non-fasting. Fasting Glucose reference ranges are: 0 - 150 years: 70 mg/dL - 99 mg/dL Current interpretive data was last revised on 2013. POC Device Number [id number] 3 HERBER MARCANO Blood 01/24/2025 10:0 5 PM CDT 01/24/2025 10:05 PM CDT Devang Henning MD LAB POCT ORDERABLES - DEVICE Final Result Performing Organization Address [facility] Phone Number [facility] [address] [place] [address] * POCT glucose (01/24/2025 6:13 PM CDT) Glucose, POC 134 70 - 199 mg/dL Comment: Interpretive Data Glucose is assumed to be non-fasting. Fasting Glucose reference ranges are: 0 - 150 years: 70 mg/dL - 99 mg/dL Current interpretive data was last revised on 2013. POC Device Number [id number] 3 HERBER MARCANO Blood 01/24/2025 6:13 PM CDT 01/24/2025 6:13 PM CDT Devang Henning MD LAB POCT ORDERABLES - DEVICE Final Result Performing Organization Address [facility] Phone Number [facility] [address] [place] [address] * POCT glucose (01/24/2025 12:59 PM CDT) Glucose, POC 110 70 - 199 mg/dL Comment: Interpretive Data Glucose is assumed to be non-fasting. Fasting Glucose reference ranges are: 0 - 150 years: 70 mg/dL - 99 mg/dL Current interpretive data was last revised on 2013. POC Device Number [id number] 3 HERBER MARCANO Blood 01/24/2025 12:5 9 PM CDT 01/24/2025 12:59 PM CDT Devang Henning MD LAB POCT ORDERABLES - DEVICE Final Result Performing Organization Address [facility] Co de Phone Number HERBER JIMENEZWCH [address] [facility] [place] [address] * POCT glucose (01/24/2025 9:32 AM CDT) Glucose, POC 111 70 - 199 mg/dL Comment: Interpretive Data Glucose is assumed to be non-fasting. Fasting Glucose reference ranges are: 0 - 150 years: 70 mg/dL - 99 mg/dL Current interpretive data was last revised on 2013. POC Device Number [id number] 3 [facility]BER BJW[facility] Blood 01/24/2025 9:32 AM CDT 01/24/2025 9:32 AM CDT Devang Henning MD LAB POCT ORDERABLES - DEVICE Final Result Performing Organization Address [facility] de Phone Number HERBER JIMENEZWCH [address] [address] [facility] [place] [address] * (ABNORMAL) eGFR (01/24/2025 5:56 AM CDT) Pathologist [facility] eGFR 13(L) >=60 mL/min/1. 73 m2 Comment: [...] BLOOD ORDERABLES Final Result Performing Organization Address [facility] Co de Phone Number HERBER REINACH [address] [facility] [place] [address] * Magnesium (01/24/2025 5:56 AM CDT) Pathologist [facility] Magnesium 2.0 1.4 - 2.5 mg/dL Comment: Reference Data. Reference values for Labor and Delivery patients: < or = 0.7 mg/dL to > or = 7.3 mg/dL Current reference data last reviewd on 01/16/2015. Blood 01/24/2025 5:56 AM CDT 01/24/2025 6:25 AM CDT Devang Henning MD LAB BLOOD ORDERABLES Final Result Performing Organization Address [facility] de Phone Number HERBER JIMENEZWCH [address] [facility] [place] [address] * (ABNORMAL) Renal function panel (01/24/2025 5:56 AM CDT) Pathologist [facility] Sodium 134(L) 135 - 145 mmol/L Potassium, pl 4.8 3.3 - 4.9 mmol/L [facility] Chloride 96(L) 97 - 110 mmol/L [facility] CO2 30 22 - 32 mmol/L [facility] Anion gap 8 2 - 15 mmol/L [facility] BUN 34(H) 6 - 25 mg/dL [facility] Creatinine 4.40(H) 0.60 - 1.10 mg/dL [facility] Glucose 115 70 - 199 mg/dL [facility] Comment: Interpretive Data Fasting glucose >/= [...] 2022. Calcium 9.1 8.5 - 10.3 mg/dL [facility] Phosphorus, pl 3.8 2.3 - 4.5 mg/dL [facility] Albumin 3.7 3.5 - 5.0 g/dL [facility] Blood 01/24/2025 5:56 AM CDT 01/24/2025 6:25 AM CDT Devang Henning MD LAB BLOOD ORDERABLES Final Result Performing Organization Address [facility] de Phone Number [facility] [address] [facility] [place] [address] * POCT glucose (01/24/2025 5:43 AM CDT) Glucose, POC 115 70 - 199 mg/dL Comment: Interpretive Data Glucose is assumed to be non-fasting. Fasting Glucose reference ranges are: 0 - 150 years: 70 mg/dL - 99 mg/dL Current interpretive data was last revised on 2013. POC Device Number [id number] 3 [facility] Blood 01/24/2025 5:43 AM CDT 01/24/2025 5:43 AM CDT Devang Henning MD LAB POCT ORDERABLES - DEVICE Final Result Performing Organization Address [facility] de Phone Number [facility] [address] [facility] [employer] [place], [place] [address] * POCT glucose (01/24/2025 1:53 AM CDT) Glucose, POC 120 70 - 199 mg/dL Comment: Interpretive Data Glucose is assumed to be non-fasting. Fasting Glucose reference ranges are: 0 - 150 years: 70 mg/dL - 99 mg/dL Current interpretive data was last revised on 2013. POC Device Number [id number] 3 [facility] BARBARAWCH Blood 01/24/2025 1:53 AM CDT 01/24/2025 1:53 AM CDT Devang Henning MD LAB POCT ORDERABLES - DEVICE Final Result Performing Organization Address [facility] de Phone Number HERBER BJWCH [address] [address] [facility] [employer] [place], [place] [id number] * POCT glucose (01/23/2025 9:51 PM CDT) [facility] Glucose, POC 134 70 - 199 mg/dL Comment: Interpretive Data Glucose is assumed to be non-fasting. Fasting Glucose reference ranges are: 0 - 150 years: 70 mg/dL - 99 mg/dL Current interpretive data was last revised on 2013. POC Device Number [id number] 3 BERLINNER BARBARAWCH Blood 01/23/2025 9:51 PM CDT 01/23/2025 9:51 PM CDT Devang Henning MD LAB POCT ORDERABLES - DEVICE Final Result Performing Organization Address [facility] Phone Number [facility] [address] [facility] [employer] [place], [place] [id number] * US Abdomen Complete (01/23/2025 9:18 PM [...] it. Electronically signed by: Femi Tuttle M.D. Devang Henning MD IMG US PROCEDURES Fi nal Result * (ABNORMAL) POCT glucose (01/23/2025 4:58 PM CDT) Glucose, POC 219(H) 70 - 199 mg/dL Comment: Interpretive Data Glucose is assumed to be non-fasting. Fasting Glucose reference ranges are: 0 - 150 years: 70 mg/dL - 99 mg/dL Current interpretive data was last revised on 2013. POC Device Number [id number] 3 HERBER [employer] Blood 01/23/2025 4:58 PM CDT 01/23/2025 4:58 PM CDT Devang Henning MD LAB POCT ORDERABLES - DEVICE Final Result HERBER JIMENEZWCH [address] [facility] [place] [address] * POCT glucose (01/23/2025 12:15 PM CDT) Glucose, POC 107 70 - 199 mg/dL Comment: Interpretive Data Glucose is assumed to be non-fasting. Fasting Glucose reference ranges are: 0 - 150 years: 70 mg/dL - 99 mg/dL Current interpretive data was last revised on 2013. POC Device Number [id number] 3 [facility] JIM[facility] Blood 01/23/2025 12:1 5 PM CDT 01/23/2025 12:15 PM CDT Devang Henning MD LAB POCT ORDERABLES - DEVICE Final Result Performing Organization Address [facility] de Phone Number HERBER REINACH [address] [address] [employer] [place], [place] [phone] * (ABNORMAL) eGFR (01/23/2025 6:36 AM CDT) Pathologist [facility] eGFR 7(L) >=60 mL/min/1. 73 m2 Comment: [...] ORDERABLES Final Res ult Performing Organization Address [facility] Co de Phone Number HERBER REINACH [address] [employer] [place] [address] * (ABNORMAL) Renal function panel (01/23/2025 6:36 AM CDT) Sodium 136 135 - 145 mmol/L Potassium, pl 6.1(H) 3.3 - 4.9 mmol/L [facility] Chloride 97 97 - 110 mmol/L [facility] CO2 27 22 - 32 mmol/L [facility] Anion gap 12 2 - 15 mmol/L [facility] BUN 76(H) 6 - 25 mg/dL [facility] Creatinine 7.40(H) 0.60 - 1.10 mg/dL [facility] Glucose 190 70 - 199 mg/dL [facility] Comment: Interpretive Data Fasting glucose >/= [...] 2022. Calcium 9.2 8.5 - 10.3 mg/dL [facility] Phosphorus, pl 5.0(H) 2.3 - 4.5 mg/dL [facility] Albumin 3.7 3.5 - 5.0 g/dL [facility] Blood 01/23/2025 6:36 AM CDT 01/23/2025 6:41 AM CDT us Jeffrey Osorio MD PhD LAB BLOOD ORDERABLES Final Res ult HERBER REINACH [id number] [facility] [place] [address] * (ABNORMAL) POCT glucose (01/23/2025 6:17 AM CDT) [facility] Signature Glucose, POC 217(H) 70 - 199 mg/dL Comment: Interpretive Data Glucose is assumed to be non-fasting. Fasting Glucose reference ranges are: 0 - 150 years: 70 mg/dL - 99 mg/dL Current interpretive data was last revised on 2013. POC Device Number [id number] 1 [facility] Blood 01/23/2025 6:17 AM CDT 01/23/2025 6:17 AM CDT us Devang Henning MD LAB POCT ORDERABLES - DEVICE Final Result Performing Organization Address [facility] de Phone Number HERBER JIMENEZWCH [address] [facility] [place] [address] * (ABNORMAL) POCT glucose (01/23/2025 2:08 AM CDT) Glucose, POC 229(H) 70 - 199 mg/dL Comment: Interpretive Data Glucose is assumed to be non-fasting. Fasting Glucose reference ranges are: 0 - 150 years: 70 mg/dL - 99 mg/dL Current interpretive data was last revised on 2013. POC Device Number [id number] 3 HERBER MARCANO Blood 01/23/2025 2:08 AM CDT 01/23/2025 2:08 AM CDT Jeffrey Osorio MD PhD LAB POCT ORDERABLES - DEVICE F inal Result Performing Organization Address [facility] de Phone Number HERBER BJWCH [address] [facility] [place] [address] * POCT glucose (01/22/2025 11:38 PM CDT) Glucose, POC 195 70 - 199 mg/dL Comment: Interpretive Data Glucose is assumed to be non-fasting. Fasting Glucose reference ranges are: 0 - 150 years: 70 mg/dL - 99 mg/dL Current interpretive data was last revised on 2013. POC Device Number [id number] 3 HERBER JIMENEZWCH Blood 01/22/2025 11:3 8 PM CDT 01/22/2025 11:38 PM CDT us Jeffrey Osorio MD PhD LAB POCT ORDERABLES - DEVICE F inal Result Performing Organization Address [facility] Co de Phone Number BERLINNER BJWCH [address] [facility] [place] [address] * POCT glucose (01/22/2025 8:14 PM CDT) Glucose, POC 125 70 - 199 mg/dL Comment: Interpretive Data Glucose is assumed to be non-fasting. Fasting Glucose reference ranges are: 0 - 150 years: 70 mg/dL - 99 mg/dL Current interpretive data was last revised on 2013. POC Device Number [id number] 3 HERBER MARCANO Blood 01/22/2025 8:14 PM CDT 01/22/2025 8:14 PM CDT Jeffrey Osorio MD PhD LAB POCT ORDERABLES - DEVICE F inal Result Performing Organization Address [facility] de Phone Number [facility] [address] [facility] [place] [address] * POCT glucose (01/22/2025 5:25 PM CDT) Glucose, POC 112 70 - 199 mg/dL Comment: Interpretive Data Glucose is assumed to be non-fasting. Fasting Glucose reference ranges are: 0 - 150 years: 70 mg/dL - 99 mg/dL Current interpretive data was last revised on 2013. POC Device Number [id number] 4 HERBER MARCANO Blood 01/22/2025 5:25 PM CDT 01/22/2025 5:25 PM CDT Jeffrey Osorio MD PhD LAB POCT ORDERABLES - DEVICE F inal Result Performing Organization Address [facility] Co de Phone Number [facility] BJWCH [address] [facility] [employer] [place], [place] [id number] * POCT glucose (01/22/2025 2:24 PM CDT) Glucose, POC 129 70 - 199 mg/dL Comment: Interpretive Data Glucose is assumed to be non-fasting. Fasting Glucose reference ranges are: 0 - 150 years: 70 mg/dL - 99 mg/dL Current interpretive data was last revised on 2013. POC Device Number [id number] 4 HERBER JIMENEZWCH Blood 01/22/2025 2:24 PM CDT 01/22/2025 2:24 PM CDT us Jeffrey Osorio MD PhD LAB POCT ORDERABLES - DEVICE F inal Result Performing Organization Address [facility] de Phone Number HERBER JIMENEZCH [address] [facility] [place] [address] * POCT glucose (01/22/2025 10:26 AM CDT) Glucose, POC 133 70 - 199 mg/dL Comment: Interpretive Data Glucose is assumed to be non-fasting. Fasting Glucose reference ranges are: 0 - 150 years: 70 mg/dL - 99 mg/dL Current interpretive data was last revised on 2013. POC Device Number [id number] 3 HERBER MARCANO Blood 01/22/2025 10:2 6 AM CDT 01/22/2025 10:26 AM CDT us Jeffrey Osorio MD PhD LAB POCT ORDERABLES - DEVICE F inal Result Performing Organization Address [facility] Phone Number HERBER JIMENEZCH [address] [place] [address] * POCT glucose (01/22/2025 6:07 AM CDT) Glucose, POC 109 70 - 199 mg/dL Comment: Interpretive Data Glucose is assumed to be non-fasting. Fasting Glucose reference ranges are: 0 - 150 years: 70 mg/dL - 99 mg/dL Current interpretive data was last revised on 2013. POC Device Number [id number] 4 HERBER MARCANO Blood 01/22/2025 6:07 AM CDT 01/22/2025 6:07 AM CDT us Jeffrey Osorio MD PhD LAB POCT ORDERABLES - DEVICE F inal Result Performing Organization Address [facility] de Phone Number HERBER JIMENEZCH [address] [facility] [place] [address] * POCT glucose (01/22/2025 2:15 AM CDT) Glucose, POC 190 70 - 199 mg/dL Comment: Interpretive Data Glucose is assumed to be non-fasting. Fasting Glucose reference ranges are: 0 - 150 years: 70 mg/dL - 99 mg/dL Current interpretive data was last revised on 2013. POC Device Number [id number] 3 HERBER MARCANO Blood 01/22/2025 2:15 AM CDT 01/22/2025 2:15 AM CDT us Jeffrey Osorio MD PhD LAB POCT ORDERABLES - DEVICE F inal Result Performing Organization Address [facility] de Phone Number HERBER BJWCH [address] [facility] [place] [address] * (ABNORMAL) POCT glucose (01/21/2025 10:28 PM CDT) Glucose, POC 340(H) 70 - 199 mg/dL Comment: Interpretive Data Glucose is assumed to be non-fasting. Fasting Glucose reference ranges are: 0 - 150 years: 70 mg/dL - 99 mg/dL Current interpretive data was last revised on 2013. POC Device Number [id number] 4 HERBER MARCANO Blood 01/21/2025 10:2 8 PM CDT 01/21/2025 10:28 PM CDT us Jeffrey Osorio MD PhD LAB POCT ORDERABLES - DEVICE F inal Result Performing Organization Address [facility] Co de Phone Number HERBER BJWCH [address] [facility] [place] [address] * POCT glucose (01/21/2025 5:23 PM CDT) Glucose, POC 195 70 - 199 mg/dL Comment: Interpretive Data Glucose is assumed to be non-fasting. Fasting Glucose reference ranges are: 0 - 150 years: 70 mg/dL - 99 mg/dL Current interpretive data was last revised on 2013. POC Device Number [id number] 4 HERBER MARCANO Blood 01/21/2025 5:23 PM CDT 01/21/2025 5:23 PM CDT Jeffrey Osorio MD PhD LAB POCT ORDERABLES - DEVICE F inal Result Performing Organization Address [facility] de Phone Number [facility] [address] [facility] [place] [address] * POCT glucose (01/21/2025 12:29 PM CDT) Glucose, POC 194 70 - 199 mg/dL Comment: Interpretive Data Glucose is assumed to be non-fasting. Fasting Glucose reference ranges are: 0 - 150 years: 70 mg/dL - 99 mg/dL Current interpretive data was last revised on 2013. POC Device Number [id number] 3 HERBER MARCANO Blood 01/21/2025 12:2 9 PM CDT 01/21/2025 12:29 PM CDT Jeffrey Osorio MD PhD LAB POCT ORDERABLES - DEVICE F inal Result Performing Organization Address [facility] de Phone [facility] [address] [facility] [place] [address] * POCT glucose (01/21/2025 8:02 AM CDT) Glucose, POC 160 70 - 199 mg/dL Comment: Interpretive Data Glucose is assumed to be non-fasting. Fasting Glucose reference ranges are: 0 - 150 years: 70 mg/dL - 99 mg/dL Current interpretive data was last revised on 2013. POC Device Number [id number] 3 BERLINNER BARBARAWCH Blood 01/21/2025 8:02 AM CDT 01/21/2025 8:02 AM CDT us Jeffrey Osorio MD PhD LAB POCT ORDERABLES - DEVICE F inal Result Performing Organization Address [facility] Co de Phone Number HERBER JIMENEZCH [address] [facility] [place] [address] * POCT glucose (01/21/2025 6:05 AM CDT) Glucose, POC 184 70 - 199 mg/dL Comment: Interpretive Data Glucose is assumed to be non-fasting. Fasting Glucose reference ranges are: 0 - 150 years: 70 mg/dL - 99 mg/dL Current interpretive data was last revised on 2013. POC Device Number [id number] 3 HERBER MARCANO Blood 01/21/2025 6:05 AM CDT 01/21/2025 6:05 AM CDT us Jeffrey Osorio MD PhD LAB POCT ORDERABLES - DEVICE F inal Result Performing Organization Address [facility] de Phone Number HERBER JIMENEZCH [address] [facility] [place] [address] * POCT glucose (01/21/2025 1:50 AM CDT) Glucose, POC 78 70 - 199 mg/dL Comment: Interpretive Data Glucose is assumed to be non-fasting. Fasting Glucose reference ranges are: 0 - 150 years: 70 mg/dL - 99 mg/dL Current interpretive data was last revised on 2013. POC Device Number [id number] 3 HERBER MARCANO Blood 01/21/2025 1:50 AM CDT 01/21/2025 1:50 AM CDT us Jeffrey Osorio MD PhD LAB POCT ORDERABLES - DEVICE F inal Result Performing Organization Address [facility] Co de Phone Number HERBER BJCH [address] [facility] [place] [address] * POCT glucose (01/20/2025 9:49 PM CDT) Glucose, POC 138 70 - 199 mg/dL Comment: Interpretive Data Glucose is assumed to be non-fasting. Fasting Glucose reference ranges are: 0 - 150 years: 70 mg/dL - 99 mg/dL Current interpretive data was last revised on 2013. POC Device Number [id number] 3 HERBER MARCANO Blood 01/20/2025 9:49 PM CDT 01/20/2025 9:49 PM CDT eJffrey Osorio MD PhD LAB POCT ORDERABLES - DEVICE F inal Result Performing Organization Address [facility] de Phone Number [facility] [address] [facility] [employer] [place], [place] [address] * POCT glucose (01/20/2025 4:28 PM CDT) Glucose, POC 129 70 - 199 mg/dL Comment: Interpretive Data Glucose is assumed to be non-fasting. Fasting Glucose reference ranges are: 0 - 150 years: 70 mg/dL - 99 mg/dL Current interpretive data was last revised on 2013. POC Device Number [id number] 3 HERBER MARCANO Blood 01/20/2025 4:28 PM CDT 01/20/2025 4:28 PM CDT Jeffrey Osorio MD PhD LAB POCT ORDERABLES - DEVICE F inal Result Performing Organization Address [facility] Co de Phone Number [facility] [address] [facility] [employer] [place], [place] [address] * POCT glucose (01/20/2025 1:07 PM CDT) Glucose, POC 102 70 - 199 mg/dL Comment: Interpretive Data Glucose is assumed to be non-fasting. Fasting Glucose reference ranges are: 0 - 150 years: 70 mg/dL - 99 mg/dL Current interpretive data was last revised on 2013. POC Device Number [id number] 3 HERBER [facility] Blood 01/20/2025 1:07 PM CDT 01/20/2025 1:07 PM CDT Jeffrey Osorio MD PhD LAB POCT ORDERABLES - DEVICE F inal Result Performing Organization Address [facility] Co de Phone Number HERBER JIMENEZCH [address] [facility] [place] [address] * (ABNORMAL) eGFR (01/20/2025 10:23 AM CDT) [...] ORDERABLES Final Res ult Performing Organization Address [facility]/ZIP Co de Phone Number HERBER JIMENEZWCH [address] [facility] [place] [address] * Differential, auto (01/20/2025 10:23 AM CDT) Neutrophil abs 2.98 1.50 - 6.50 K/cumm Imm gran abs 0.01 0.00 - 0.10 K/cumm [facility] Lymphocyte abs 1.16 0.80 - 3.30 K/cumm [facility] Monocyte abs 0.34 0.20 - 0.80 K/cumm [facility] Eosinophil abs 0.12 0.00 - 0.50 K/cumm [facility] Basophil abs 0.00 0.00 - 0.10 K/cumm [facility] Neutrophil pct 64.6 % [facility] Comment: Interpretive Data Percent cell count reference ranges are not reported, since discordance with absolute values may lead to misinterpretation of CBC data. Current Interpretive Data was last revised on 2017. Imm gran pct 0.2 % [facility] Comment: Interpretive Data Percent cell count reference ranges are not reported, since discordance with absolute values may lead to misinterpretation of CBC data. Current Interpretive Data was last revised on 2017. Lymphocyte pct 25.2 % [facility] Comment: Interpretive Data Percent cell count reference ranges are not reported, since discordance with absolute values may lead to misinterpretation of CBC data. Current Interpretive Data was last revised on 2017. Monocyte pct 7.4 % [facility] Comment: Interpretive Data Percent cell count reference ranges are not reported, since discordance with absolute values may lead to misinterpretation of CBC data. Current Interpretive Data was last revised on 2017. Eosinophil pct 2.6 % [facility] Comment: Interpretive Data Percent cell count reference ranges are not reported, since discordance with absolute values may lead to misinterpretation of CBC data. Current Interpretive Data was last revised on 2017. Basophil pct 0.0 % [facility] Comment: Interpretive Data Percent cell count reference ranges are not reported, since discordance with absolute values may lead to misinterpretation of CBC data. Current Interpretive Data was last revised on 2017. Blood 01/20/2025 10:2 3 AM CDT 01/20/2025 10:26 AM CDT Jeffrey Osorio MD PhD LAB BLOOD ORDERABLES Final Res ult HERBER MARCANO [id number] [employer] [place] [address] * (ABNORMAL) CBC with auto differential (01/20/2025 10:23 AM CDT) WBC 4.61 3.80 - 9.90 K/cumm Hgb 8.2(L) 11.9 - 15.5 g/dL [facility] Hct 26.9(L) 35.6 - 45.5 % [facility] Plt 309 150 - 400 K/cumm [facility] MPV 10.8 9.1 - 12.3 fL [facility] RBC 2.89(L) 3.90 - 5.20 M/cumm [facility] MCV 93.1 81.3 - 96.4 fL [facility] MCH 28.4 27.1 - 33.3 pg [facility] MCHC 30.5(L) 32.3 - 35.7 g/dL [facility] RDW CV 15.2(H) 11.1 - 14.9 % [facility] RDW SD 51.6(H) 35.7 - 48.1 fL [facility] NRBC abs 0.00 0.00 - 0.01 K/cumm [facility] Blood 01/20/2025 10:2 3 AM CDT 01/20/2025 10:26 AM CDT Jeffrey Osorio MD PhD LAB BLOOD ORDERABLES Final Res ult HERBER MARCANO [address] [employer] [place] [address] * (ABNORMAL) Renal function panel (01/20/2025 10:23 AM CDT) Sodium 137 135 - 145 mmol/L Potassium, pl 5.0(H) 3.3 - 4.9 mmol/L [facility] Chloride 100 97 - 110 mmol/L [facility] CO2 28 22 - 32 mmol/L [facility] Anion gap 9 2 - 15 mmol/L [facility] BUN 42(H) 6 - 25 mg/dL [facility] Creatinine 4.95(H) 0.60 - 1.10 mg/dL [facility] Glucose 110 70 - 199 mg/dL [facility] Comment: Interpretive Data Fasting glucose >/= [...] 2022. Calcium 8.2(L) 8.5 - 10.3 mg/dL [facility] Phosphorus, pl 3.7 2.3 - 4.5 mg/dL [facility] Albumin 3.6 3.5 - 5.0 g/dL [facility] Blood 01/20/2025 10:2 3 AM CDT 01/20/2025 10:26 AM CDT us Jeffrey Osorio MD PhD LAB BLOOD ORDERABLES Final Res ult [facility] [id number] [facility] [place] [address] * POCT glucose (01/20/2025 9:51 AM CDT) [facility] Glucose, POC 111 70 - 199 mg/dL Comment: Interpretive Data Glucose is assumed to be non-fasting. Fasting Glucose reference ranges are: 0 - 150 years: 70 mg/dL - 99 mg/dL Current interpretive data was last revised on 2013. POC Device Number [id number] 3 [facility] Blood 01/20/2025 9:51 AM CDT 01/20/2025 9:51 AM CDT us Jeffrey Osorio MD PhD LAB POCT ORDERABLES - DEVICE F inal Result Performing Organization Address [facility] Co de Phone Number HERBER JIMENEZCH [address] [facility] [place] [address] * POCT glucose (01/20/2025 8:45 AM CDT) Glucose, POC 115 70 - 199 mg/dL Comment: Interpretive Data Glucose is assumed to be non-fasting. Fasting Glucose reference ranges are: 0 - 150 years: 70 mg/dL - 99 mg/dL Current interpretive data was last revised on 2013. POC Device Number [id number] 3 HERBER JIMENEZWCYDNEY Blood 01/20/2025 8:45 AM CDT 01/20/2025 8:45 AM CDT us Jeffrey Osorio MD PhD LAB POCT ORDERABLES - DEVICE F inal Result Performing Organization Address [facility] de Phone Number [facility] [address] [facility] [place] [address] * (ABNORMAL) POCT glucose (01/20/2025 8:02 AM CDT) Glucose, POC 67(L) 70 - 199 mg/dL Comment: Interpretive Data Glucose is assumed to be non-fasting. Fasting Glucose reference ranges are: 0 - 150 years: 70 mg/dL - 99 mg/dL Current interpretive data was last revised on 2013. POC Device Number [id number] 3 [facility] BARBARAW[facility] Blood 01/20/2025 8:02 AM CDT 01/20/2025 8:02 AM CDT us Jeffrey Osorio MD PhD LAB POCT ORDERABLES - DEVICE F inal Result Performing Organization Address [facility] Co de Phone Number [facility] [address] [facility] [place] [address] * POCT glucose (01/20/2025 5:49 AM CDT) Glucose, POC 122 70 - 199 mg/dL Comment: Interpretive Data Glucose is assumed to be non-fasting. Fasting Glucose reference ranges are: 0 - 150 years: 70 mg/dL - 99 mg/dL Current interpretive data was last revised on 2013. POC Device Number [id number] 3 HERBER JIMENEZWCYDNEY Blood 01/20/2025 5:49 AM CDT 01/20/2025 5:49 AM CDT Jeffrey Osorio MD PhD LAB POCT ORDERABLES - DEVICE F inal Result Performing Organization Address [facility] de Phone Number [facility] [address] [employer] [place] [address] * POCT glucose (01/20/2025 1:57 AM CDT) Glucose, POC 127 70 - 199 mg/dL Comment: Interpretive Data Glucose is assumed to be non-fasting. Fasting Glucose reference ranges are: 0 - 150 years: 70 mg/dL - 99 mg/dL Current interpretive data was last revised on 2013. POC Device Number [id number] 4 HERBER MARCANO Blood 01/20/2025 1:57 AM CDT 01/20/2025 1:57 AM CDT us Jeffrey Osorio MD PhD LAB POCT ORDERABLES - DEVICE F inal Result Performing Organization Address [facility] Co de Phone Number [facility] BJWCH [address] [id number] [employer] [place] [address] * (ABNORMAL) POCT glucose (01/19/2025 10:01 PM CDT) Glucose, POC 243(H) 70 - 199 mg/dL Comment: Interpretive Data Glucose is assumed to be non-fasting. Fasting Glucose reference ranges are: 0 - 150 years: 70 mg/dL - 99 mg/dL Current interpretive data was last revised on 2013. POC Device Number [id number] HERBER JIMENEZWCH Glucose comment 1 RN/MD Notified HERBER MARCANO Blood 01/19/2025 10:0 1 PM CDT 01/19/2025 10:01 PM CDT Jeffrey Osorio MD PhD LAB POCT ORDERABLES - DEVICE F inal Result Performing Organization Address [facility] de Phone Number HERBER B[facility] [address] [facility] [place] [address] * POCT glucose (01/19/2025 6:01 PM CDT) Glucose, POC 98 70 - 199 mg/dL Comment: Interpretive Data Glucose is assumed to be non-fasting. Fasting Glucose reference ranges are: 0 - 150 years: 70 mg/dL - 99 mg/dL Current interpretive data was last revised on 2013. POC Device Number [id number] 4 BERLINNER BARBARAWCH Blood 01/19/2025 6:01 PM CDT 01/19/2025 6:01 PM CDT Jeffrey Osorio MD PhD LAB POCT ORDERABLES - DEVICE F inal Result Performing Organization Address [facility] de Phone Number [facility] BJ[facility] [address] [facility] [place] [address] * POCT glucose (01/19/2025 4:18 PM CDT) Glucose, POC 75 70 - 199 mg/dL Comment: Interpretive Data Glucose is assumed to be non-fasting. Fasting Glucose reference ranges are: 0 - 150 years: 70 mg/dL - 99 mg/dL Current interpretive data was last revised on 2013. POC Device Number [id number] 4 BERLINNER BARBARAWCH Blood 01/19/2025 4:18 PM CDT 01/19/2025 4:18 PM CDT us Jeffrey Osorio MD PhD LAB POCT ORDERABLES - DEVICE F inal Result Performing Organization Address [facility] Co de Phone Number HERBER JIMENEZCH [address] [facility] [place] [address] * POCT glucose (01/19/2025 11:51 AM CDT) Glucose, POC 114 70 - 199 mg/dL Comment: Interpretive Data Glucose is assumed to be non-fasting. Fasting Glucose reference ranges are: 0 - 150 years: 70 mg/dL - 99 mg/dL Current interpretive data was last revised on 2013. POC Device Number [id number] 4 HERBER MARCANO Blood 01/19/2025 11:5 1 AM CDT 01/19/2025 11:51 AM CDT us Jeffrey Osorio MD PhD LAB POCT ORDERABLES - DEVICE F inal Result Performing Organization Address [facility] de Phone Number HERBER JIMENEZWCH [address] [facility] [place] [address] * POCT glucose (01/19/2025 10:04 AM CDT) Glucose, POC 137 70 - 199 mg/dL Comment: Interpretive Data Glucose is assumed to be non-fasting. Fasting Glucose reference ranges are: 0 - 150 years: 70 mg/dL - 99 mg/dL Current interpretive data was last revised on 2013. POC Device Number [id number] 4 HERBER MARCANO Blood 01/19/2025 10:0 4 AM CDT 01/19/2025 10:04 AM CDT us Jeffrey Osorio MD PhD LAB POCT ORDERABLES - DEVICE F inal Result Performing Organization Address [facility] Co de Phone Number HERBER JIMENEZCH [address] [facility] [place] [address] * POCT glucose (01/19/2025 6:33 AM CDT) Glucose, POC 71 70 - 199 mg/dL Comment: Interpretive Data Glucose is assumed to be non-fasting. Fasting Glucose reference ranges are: 0 - 150 years: 70 mg/dL - 99 mg/dL Current interpretive data was last revised on 2013. POC Device Number [id number] 3 HERBER MARCANO Blood 01/19/2025 6:33 AM CDT 01/19/2025 6:33 AM CDT Jeffrey Osorio MD PhD LAB POCT ORDERABLES - DEVICE F inal Result Performing Organization Address [facility] de Phone Number [facility] [address] [facility] [place] [address] * POCT glucose (01/19/2025 2:13 AM CDT) Glucose, POC 104 70 - 199 mg/dL Comment: Interpretive Data Glucose is assumed to be non-fasting. Fasting Glucose reference ranges are: 0 - 150 years: 70 mg/dL - 99 mg/dL Current interpretive data was last revised on 2013. POC Device Number [id number] 3 HEREBR MARCANO Blood 01/19/2025 2:13 AM CDT 01/19/2025 2:13 AM CDT Jeffrey Osorio MD PhD LAB POCT ORDERABLES - DEVICE F inal Result Performing Organization Address [facility] de Phone Number [facility] BJWCH [address] [facility] [employer] [place], [place] [phone] * POCT glucose (01/18/2025 9:50 PM CDT) Glucose, POC 97 70 - 199 mg/dL Comment: Interpretive Data Glucose is assumed to be non-fasting. Fasting Glucose reference ranges are: 0 - 150 years: 70 mg/dL - 99 mg/dL Current interpretive data was last revised on 2013. POC Device Number [id number] 3 HERBER MARCANO Blood 01/18/2025 9:50 PM CDT 01/18/2025 9:50 PM CDT us Jeffrey Osorio MD PhD LAB POCT ORDERABLES - DEVICE F inal Result Performing Organization Address [facility] Phone Number [facility] [address] [place] [address] * POCT glucose (01/18/2025 5:59 PM CDT) Glucose, POC 171 70 - 199 mg/dL Comment: Interpretive Data Glucose is assumed to be non-fasting. Fasting Glucose reference ranges are: 0 - 150 years: 70 mg/dL - 99 mg/dL Current interpretive data was last revised on 2013. POC Device Number [id number] 1 HERBER MARCANO Blood 01/18/2025 5:59 PM CDT 01/18/2025 5:59 PM CDT us Jeffrey Osorio MD PhD LAB POCT ORDERABLES - DEVICE F inal Result Performing Organization Address [facility] Phone Number [facility] [address] [place] [address] * POCT glucose (01/18/2025 12:15 PM CDT) Glucose, POC 143 70 - 199 mg/dL Comment: Interpretive Data Glucose is assumed to be non-fasting. Fasting Glucose reference ranges are: 0 - 150 years: 70 mg/dL - 99 mg/dL Current interpretive data was last revised on 2013. POC Device Number [id number] BERLINNER BARBARAWCH Blood 01/18/2025 12:1 5 PM CDT 01/18/2025 12:15 PM CDT us Jeffrey Osorio MD PhD LAB POCT ORDERABLES - DEVICE F inal Result Performing Organization Address [facility] de Phone Number HERBER JIMENEZCH [address] [facility] [employer] [place], [place] [phone] * POCT glucose (01/18/2025 6:08 AM CDT) Glucose, POC 92 70 - 199 mg/dL Comment: Interpretive Data Glucose is assumed to be non-fasting. Fasting Glucose reference ranges are: 0 - 150 years: 70 mg/dL - 99 mg/dL Current interpretive data was last revised on 2013. POC Device Number [id number] 1 HERBER JIMENEZWCH Blood 01/18/2025 6:08 AM CDT 01/18/2025 6:08 AM CDT Jeffrey Osorio MD PhD LAB POCT ORDERABLES - DEVICE F inal Result Performing Organization Address [facility] de Phone Number HERBER JIMENEZCH [address] [facility] [place] [address] * POCT glucose (01/18/2025 2:09 AM CDT) Glucose, POC 107 70 - 199 mg/dL Comment: Interpretive Data Glucose is assumed to be non-fasting. Fasting Glucose reference ranges are: 0 - 150 years: 70 mg/dL - 99 mg/dL Current interpretive data was last revised on 2013. POC Device Number [id number] 4 CERLULY JIMENEZWCH Blood 01/18/2025 2:0 9 AM CDT 01/18/2025 2:09 AM CDT us Jeffrey Osorio MD PhD LAB POCT ORDERABLES - DEVICE F inal Result Performing Organization Address [facility] de Phone Number HERBER BJWCH [address] [facility] [place] [address] * POCT glucose (01/17/2025 7:36 PM CDT) Glucose, POC 131 70 - 199 mg/dL Comment: Interpretive Data Glucose is assumed to be non-fasting. Fasting Glucose reference ranges are: 0 - 150 years: 70 mg/dL - 99 mg/dL Current interpretive data was last revised on 2013. POC Device Number [id number] 4 HERBER JIMENEZWCH Blood 01/17/2025 7:36 PM CDT 01/17/2025 7:36 PM CDT Jeffrey Osorio MD PhD LAB POCT ORDERABLES - DEVICE F inal Result Performing Organization Address [facility] de Phone Number [facility] [address] [facility] [employer] [place], [place] [id number] * POCT glucose (01/17/2025 5:40 PM CDT) Glucose, POC 161 70 - 199 mg/dL Comment: Interpretive Data Glucose is assumed to be non-fasting. Fasting Glucose reference ranges are: 0 - 150 years: 70 mg/dL - 99 mg/dL Current interpretive data was last revised on 2013. POC Device Number [id number] 3 HERBER JIMENEZWCH Blood 01/17/2025 5:40 PM CDT 01/17/2025 5:40 PM CDT Jeffrey Osorio MD PhD LAB POCT ORDERABLES - DEVICE F inal Result Performing Organization Address [facility] de Phone Number [facility] [address] [facility] [place] [address] * POCT glucose (01/17/2025 12:02 PM CDT) Glucose, POC 149 70 - 199 mg/dL Comment: Interpretive Data Glucose is assumed to be non-fasting. Fasting Glucose reference ranges are: 0 - 150 years: 70 mg/dL - 99 mg/dL Current interpretive data was last revised on 2013. POC Device Number [id number] 4 CERNER BARBARAWCH Blood 01/17/2025 12:0 2 PM CDT 01/17/2025 12:02 PM CDT us Jeffrey Osorio MD PhD LAB POCT ORDERABLES - DEVICE F inal Result Performing Organization Address [facility] Co de Phone Number HERBER REINACH [address] [facility] [place] [address] * POCT glucose (01/17/2025 8:19 AM CDT) Glucose, POC 198 70 - 199 mg/dL Comment: Interpretive Data Glucose is assumed to be non-fasting. Fasting Glucose reference ranges are: 0 - 150 years: 70 mg/dL - 99 mg/dL Current interpretive data was last revised on 2013. POC Device Number [id number] 1 HERBER MARCANO Blood 01/17/2025 8:19 AM CDT 01/17/2025 8:19 AM CDT us Jeffrey Osorio MD PhD LAB POCT ORDERABLES - DEVICE F inal Result Performing Organization Address [facility] de Phone Number HERBER JIMENEZCH [address] [facility] [place] [address] * POCT glucose (01/17/2025 3:39 AM CDT) Glucose, POC 98 70 - 199 mg/dL Comment: Interpretive Data Glucose is assumed to be non-fasting. Fasting Glucose reference ranges are: 0 - 150 years: 70 mg/dL - 99 mg/dL Current interpretive data was last revised on 2013. POC Device Number [id number] 1 BERLINNER BARBARAWCYDNEY Blood 01/17/2025 3:39 AM CDT 01/17/2025 3:39 AM CDT us Jeffrey Osorio MD PhD LAB POCT ORDERABLES - DEVICE F inal Result Performing Organization Address [facility] Co de Phone Number HERBER JIMENEZCH [address] [facility] [place] [address] * POCT glucose (01/17/2025 1:03 AM CDT) Glucose, POC 101 70 - 199 mg/dL Comment: Interpretive Data Glucose is assumed to be non-fasting. Fasting Glucose reference ranges are: 0 - 150 years: 70 mg/dL - 99 mg/dL Current interpretive data was last revised on 2013. POC Device Number [id number] 4 HERBER MARCANO Blood 01/17/2025 1:03 AM CDT 01/17/2025 1:03 AM CDT Jeffrey Osorio MD PhD LAB POCT ORDERABLES - DEVICE F inal Result Performing Organization Address [facility] de Phone Number [facility] [address] [facility] [place] [address] * POCT glucose (01/16/2025 11:58 PM CDT) Glucose, POC 110 70 - 199 mg/dL Comment: Interpretive Data Glucose is assumed to be non-fasting. Fasting Glucose reference ranges are: 0 - 150 years: 70 mg/dL - 99 mg/dL Current interpretive data was last revised on 2013. POC Device Number [id number] 4 HERBER MARCANO Blood 01/16/2025 11:5 8 PM CDT 01/16/2025 11:58 PM CDT Jeffrey Osorio MD PhD LAB POCT ORDERABLES - DEVICE F inal Result Performing Organization Address [facility] de Phone Number [facility] BJWCH [address] [facility] [place] [address] * POCT glucose (01/16/2025 11:40 PM CDT) Glucose, POC 98 70 - 199 mg/dL Comment: Interpretive Data Glucose is assumed to be non-fasting. Fasting Glucose reference ranges are: 0 - 150 years: 70 mg/dL - 99 mg/dL Current interpretive data was last revised on 2013. POC Device Number [id number] 4 BERLINNER BARBARAWCH Blood 01/16/2025 11:4 0 PM CDT 01/16/2025 11:40 PM CDT us Jeffrey Osorio MD PhD LAB POCT ORDERABLES - DEVICE F inal Result Performing Organization Address [facility] Phone Number [facility] [address] [facility] [place] [address] * POCT glucose (01/16/2025 11:23 PM CDT) Glucose, POC 93 70 - 199 mg/dL Comment: Interpretive Data Glucose is assumed to be non-fasting. Fasting Glucose reference ranges are: 0 - 150 years: 70 mg/dL - 99 mg/dL Current interpretive data was last revised on 2013. POC Device Number [id number] 4 CERNER BARBARAWCYDNEY Blood 01/16/2025 11:2 3 PM CDT 01/16/2025 11:23 PM CDT us Jeffrey Osorio MD PhD LAB POCT ORDERABLES - DEVICE F inal Result Performing Organization Address [facility] Phone Number [facility] [address] [facility] [place] [address] * (ABNORMAL) POCT glucose (01/16/2025 11:04 PM CDT) Glucose, POC 57(L) 70 - 199 mg/dL Comment: Interpretive Data Glucose is assumed to be non-fasting. Fasting Glucose reference ranges are: 0 - 150 years: 70 mg/dL - 99 mg/dL Current interpretive data was last revised on 2013. POC Device Number [id number] 4 CERNER BARBARAWCH Blood 01/16/2025 11:0 4 PM CDT 01/16/2025 11:04 PM CDT us Jeffrey Osorio MD PhD LAB POCT ORDERABLES - DEVICE F inal Result Performing Organization Address [facility] Co de Phone Number HERBER JIMENEZCH [address] [facility] [place] [address] * (ABNORMAL) POCT glucose (01/16/2025 10:46 PM CDT) Glucose, POC 58(L) 70 - 199 mg/dL Comment: Interpretive Data Glucose is assumed to be non-fasting. Fasting Glucose reference ranges are: 0 - 150 years: 70 mg/dL - 99 mg/dL Current interpretive data was last revised on 2013. POC Device Number [id number] 4 HERBER REINAEstimote Blood 01/16/2025 10:4 6 PM CDT 01/16/2025 10:46 PM CDT Jeffrey Osorio MD PhD LAB POCT ORDERABLES - DEVICE F inal Result Performing Organization Address [facility] de Phone Number HERBER WCH [address] [facility] [place] [address] * POCT glucose (01/16/2025 7:48 PM CDT) Glucose, POC 186 70 - 199 mg/dL Comment: Interpretive Data Glucose is assumed to be non-fasting. Fasting Glucose reference ranges are: 0 - 150 years: 70 mg/dL - 99 mg/dL Current interpretive data was last revised on 2013. POC Device Number [id number] 4 HERBER MARCANO Blood 01/16/2025 7:48 PM CDT 01/16/2025 7:48 PM CDT us Jeffrey Osorio MD PhD LAB POCT ORDERABLES - DEVICE F inal Result Performing Organization Address [facility] Co de Phone Number [facility] [address] [facility] [place] [address] * POCT glucose (01/16/2025 4:32 PM CDT) Glucose, POC 134 70 - 199 mg/dL Comment: Interpretive Data Glucose is assumed to be non-fasting. Fasting Glucose reference ranges are: 0 - 150 years: 70 mg/dL - 99 mg/dL Current interpretive data was last revised on 2013. POC Device Number [id number] 4 HERBER MARCANO Blood 01/16/2025 4:32 PM CDT 01/16/2025 4:32 PM CDT Jeffrey Osorio MD PhD LAB POCT ORDERABLES - DEVICE F inal Result Performing Organization Address [facility] Phone Number [facility] [address] [facility] [employer] [place], [place] [id number] * POCT glucose (01/16/2025 12:40 PM CDT) Glucose, POC 195 70 - 199 mg/dL Comment: Interpretive Data Glucose is assumed to be non-fasting. Fasting Glucose reference ranges are: 0 - 150 years: 70 mg/dL - 99 mg/dL Current interpretive data was last revised on 2013. POC Device Number [id number] 4 HERBER JIMENEZCYDNEY Blood 01/16/2025 12:4 0 PM CDT 01/16/2025 12:40 PM CDT Jeffrey Osorio MD PhD LAB POCT ORDERABLES - DEVICE F inal Result Performing Organization Address [facility] Phone Number [facility] BJWCH [address] [facility] [employer] [place], [place] [phone] * (ABNORMAL) POCT glucose (01/16/2025 9:13 AM CDT) Glucose, POC 210(H) 70 - 199 mg/dL Comment: Interpretive Data Glucose is assumed to be non-fasting. Fasting Glucose reference ranges are: 0 - 150 years: 70 mg/dL - 99 mg/dL Current interpretive data was last revised on 2013. POC Device Number [id number] 4 HERBER BJWCH Blood 01/16/2025 9:13 AM CDT 01/16/2025 9:13 AM CDT Jeffrey Osorio MD PhD LAB POCT ORDERABLES - DEVICE F inal Result Performing Organization Address [facility] Co de Phone Number [facility] [address] [place] [address] * (ABNORMAL) eGFR (01/16/2025 6:49 AM CDT) [...] ORDERABLES Marli l Result Performing Organization Address [facility]/ZIP Co de Phone Number HERBER BJWCH [address] [employer] [facility] [employer] [place], [place] [id number] * (ABNORMAL) CBC without differential (01/16/2025 6:49 AM CDT) WBC 5.02 3.80 - 9.90 K/cumm Hgb 10.1(L) 11.9 - 15.5 g/dL [facility] Hct 32.7(L) 35.6 - 45.5 % [facility] Plt 396 150 - 400 K/cumm [facility] MPV 10.3 9.1 - 12.3 fL [facility] RBC 3.61(L) 3.90 - 5.20 M/cumm [facility] MCV 90.6 81.3 - 96.4 fL [facility] MCH 28.0 27.1 - 33.3 pg [facility] MCHC 30.9(L) 32.3 - 35.7 g/dL [facility] RDW CV 15.4(H) 11.1 - 14.9 % [facility] RDW SD 50.6(H) 35.7 - 48.1 fL [facility] NRBC abs 0.00 0.00 - 0.01 K/cumm [facility] Blood 01/16/2025 6:49 AM CDT 01/16/2025 7:01 AM CDT us Parag Xie MD LAB BLOOD ORDERABLES Marli lipscomb Result HERBER REINA [address] [facility]. [place] [address] * (ABNORMAL) Basic metabolic panel (01/16/2025 6:49 AM CDT) [facility] Sodium 137 135 - 145 mmol/L Potassium, pl 4.5 3.3 - 4.9 mmol/L [facility] Chloride 97 97 - 110 mmol/L [facility] CO2 26 22 - 32 mmol/L [facility] Anion gap 14 2 - 15 mmol/L [facility] BUN 68(H) 6 - 25 mg/dL [facility] Creatinine 7.90(H) 0.60 - 1.10 mg/dL [facility] Glucose 126 70 - 199 mg/dL [facility] Comment: Interpretive Data Fasting glucose >/= [...] Calcium 8.7 8.5 - 10.3 mg/dL HERBER [facility] Blood 01/16/2025 6:49 AM CDT 01/16/2025 7:01 AM CDT Parag Xie MD LAB BLOOD ORDERABLES Marli l Result Performing Organization Address [facility] Co de Phone Number [facility] [address] [place] [address] * POCT glucose (01/16/2025 3:16 AM CDT) Glucose, POC 112 70 - 199 mg/dL Comment: Interpretive Data Glucose is assumed to be non-fasting. Fasting Glucose reference ranges are: 0 - 150 years: 70 mg/dL - 99 mg/dL Current interpretive data was last revised on 2013. POC Device Number [id number] 1 BANNERLULY [facility] Blood 01/16/2025 3:16 AM CDT 01/16/2025 3:16 AM CDT Parag Xie MD LAB POCT ORDERABLES - DEV ICE Final Result Performing Organization Address [facility] Co de Phone Number [facility] [address] [employer] [facility] [employer] [place], [place] [phone] * POCT glucose (01/15/2025 11:41 PM CDT) Glucose, POC 72 70 - 199 mg/dL Comment: Interpretive Data Glucose is assumed to be non-fasting. Fasting Glucose reference ranges are: 0 - 150 years: 70 mg/dL - 99 mg/dL Current interpretive data was last revised on 2013. POC Device Number [id number] 1 HERBER MARCANO Blood 01/15/2025 11:4 1 PM CDT 01/15/2025 11:41 PM CDT Parag Xie MD LAB POCT ORDERABLES - DEV ICE Final Result Performing Organization Address [facility] de Phone Number HERBER JIMENEZWCH [address] [facility] [place] [address] * POCT glucose (01/15/2025 8:45 PM CDT) Glucose, POC 85 70 - 199 mg/dL Comment: Interpretive Data Glucose is assumed to be non-fasting. Fasting Glucose reference ranges are: 0 - 150 years: 70 mg/dL - 99 mg/dL Current interpretive data was last revised on 2013. POC Device Number [id number] 1 HERBER MARCANO Blood 01/15/2025 8:45 PM CDT 01/15/2025 8:45 PM CDT Parag Xie MD LAB POCT ORDERABLES - DEV ICE Final Result Performing Organization Address [facility] de Phone Number [facility] BJWCH [address] [facility] [place] [address] * POCT glucose (01/15/2025 7:01 PM CDT) Glucose, POC 121 70 - 199 mg/dL Comment: Interpretive Data Glucose is assumed to be non-fasting. Fasting Glucose reference ranges are: 0 - 150 years: 70 mg/dL - 99 mg/dL Current interpretive data was last revised on 2013. POC Device Number [id number] 1 HERBER MARCANO Blood 01/15/2025 7:01 PM CDT 01/15/2025 7:01 PM CDT Parag Xie MD LAB POCT ORDERABLES - DEV ICE Final Result HERBER B[facility] [address] [facility]. [place] [address] * POCT hCG, urine (01/15/2025 4:15 PM [...] tendency for uric acid stone formation. Source: [facility] [employer] Current Interpretive Data was last revised on [...] will be performed. CERNER [facility] Urine 01/15/2025 4:1 2 PM CDT 01/15/2025 4:14 PM CDT Odilon Correa MD PhD LAB MICROBIOLOGY - GENERAL ORDERABLES Final Result HERBER JIMENEZCH [address] [facility] [place] [address] * (ABNORMAL) Urinalysis, microscopic only (01/15/2025 4:12 [...] ORDERABLE S Final Result Performing Organization Address [facility] Co de Phone Number HERBER JIMENEZCH [address] [employer] [place] [address] * (ABNORMAL) eGFR (01/15/2025 3:18 PM CDT) [...] CDT us Ashlee FRANCE LAB BLOOD ORDERABLES Final Result Performing Organization Address [facility]/ZIP Co de Phone Number HERBER JIMENEZWCH [address] [employer] [place] [address] * Differential, auto (01/15/2025 3:18 PM CDT) Neutrophil abs 2.90 1.50 - 6.50 K/cumm Imm gran abs 0.02 0.00 - 0.10 K/cumm HERBER MARCANO Lymphocyte abs 1.39 0.80 - 3.30 K/cumm [facility] Monocyte abs 0.37 0.20 - 0.80 K/cumm [facility] Eosinophil abs 0.07 0.00 - 0.50 K/cumm [facility] Basophil abs 0.01 0.00 - 0.10 K/cumm [facility] Neutrophil pct 60.9 % CERLULY [facility] Comment: Interpretive Data Percent cell count reference ranges are not reported, since discordance with absolute values may lead to misinterpretation of CBC data. Current Interpretive Data was last revised on 2017. Imm gran pct 0.4 % HERBER [facility] Comment: Interpretive Data Percent cell count reference ranges are not reported, since discordance with absolute values may lead to misinterpretation of CBC data. Current Interpretive Data was last revised on 2017. Lymphocyte pct 29.2 % HERBER [facility] Comment: Interpretive Data Percent cell count reference ranges are not reported, since discordance with absolute values may lead to misinterpretation of CBC data. Current Interpretive Data was last revised on 2017. Monocyte pct 7.8 % HERBER [facility] Comment: Interpretive Data Percent cell count reference ranges are not reported, since discordance with absolute values may lead to misinterpretation of CBC data. Current Interpretive Data was last revised on 2017. Eosinophil pct 1.5 % HERBER [facility] Comment: Interpretive Data Percent cell count reference ranges are not reported, since discordance with absolute values may lead to misinterpretation of CBC data. Current Interpretive Data was last revised on 2017. Basophil pct 0.2 % HERBER [facility] Comment: Interpretive Data Percent cell count reference ranges are not reported, since discordance with absolute values may lead to misinterpretation of CBC data. Current Interpretive Data was last revised on 2017. Blood 01/15/2025 3:18 PM CDT 01/15/2025 3:21 PM CDT us Ashlee FRANCE LAB BLOOD ORDERABLES Final Result [facility] [address] [place] [address] * (ABNORMAL) CBC with auto differential (01/15/2025 3:18 PM CDT) [facility] WBC 4.76 3.80 - 9.90 K/cumm Hgb 9.5(L) 11.9 - 15.5 g/dL BANNERNER W Hct 30.9(L) 35.6 - 45.5 % [facility] Plt 372 150 - 400 K/cumm [facility] MPV 10.4 9.1 - 12.3 fL [facility] RBC 3.40(L) 3.90 - 5.20 M/cumm [facility] MCV 90.9 81.3 - 96.[address] [facility] MCH 27.9 27.1 - 33.3 pg [facility] MCHC 30.7(L) 32.3 - 35.7 g/dL [facility] RDW CV 15.5(H) 11.1 - 14.9 % [facility] RDW SD 50.7(H) 35.7 - 48.1 fL [facility] NRBC abs 0.00 0.00 - 0.01 K/cumm [facility] Blood Venous blood specimen / Unknown 01/15/2025 3:18 PM CDT 01/15/2025 3:21 PM CDT us Odilon Correa MD PhD LAB BLOOD ORDERABLE S Final Result [facility] [address] [facility] [place] [address] * (ABNORMAL) Comprehensive metabolic panel (01/15/2025 3:18 PM CDT) [facility] Sodium 139 135 - 145 mmol/L Potassium, pl 4.8 3.3 - 4.9 mmol/L [facility] Chloride 98 97 - 110 mmol/L [facility] CO2 23 22 - 32 mmol/L BANN[facility]ER [facility] Anion gap 18(H) 2 - 15 [...] LAB BLOOD ORDERABLE S Final Result HERBER JIMENEZCH [address] [facility]. [place] [address] * (ABNORMAL) POCT glucose (01/12/2025 10:49 AM CDT) [facility] Glucose, POC 270(H) 70 - 199 mg/dL Comment: Interpretive Data Glucose is assumed to be non-fasting. Fasting Glucose reference ranges are: 0 - 150 years: 70 mg/dL - 99 mg/dL Current interpretive data was last revised on 2013. POC Device Number [id number] 4 CERNER BARBARAWCYDNEY Blood 01/12/2025 10:4 9 AM CDT 01/12/2025 10:49 AM CDT Parag Xie MD LAB POCT ORDERABLES - DEV ICE Final Result Performing Organization Address [facility] Phone Number [facility] [address] [facility] [place] [address] * (ABNORMAL) POCT glucose (01/12/2025 8:11 AM CDT) Glucose, POC 343(H) 70 - 199 mg/dL Comment: Interpretive Data Glucose is assumed to be non-fasting. Fasting Glucose reference ranges are: 0 - 150 years: 70 mg/dL - 99 mg/dL Current interpretive data was last revised on 2013. POC Device Number [id number] 1 HERBER MARCANO Blood 01/12/2025 8:11 AM CDT 01/12/2025 8:11 AM CDT Parag Xie MD LAB POCT ORDERABLES - DEV ICE Final Result Performing Organization Address [facility] [facility] de Phone Number [facility] [address] [facility] [place] [address] * POCT glucose (01/11/2025 11:44 PM CDT) Glucose, POC 129 70 - 199 mg/dL Comment: Interpretive Data Glucose is assumed to be non-fasting. Fasting Glucose reference ranges are: 0 - 150 years: 70 mg/dL - 99 mg/dL Current interpretive data was last revised on 2013. POC Device Number [id number] 1 HERBER MARCANO Blood 01/11/2025 11:4 4 PM CDT 01/11/2025 11:44 PM CDT Parag Xie MD LAB POCT ORDERABLES - DEV ICE Final Result Performing Organization Address [facility] de Phone Number HERBER JIMENEZCH [address] [facility] [place], [place] [id number] * POCT glucose (01/11/2025 10:23 PM CDT) Glucose, POC 170 70 - 199 mg/dL Comment: Interpretive Data Glucose is assumed to be non-fasting. Fasting Glucose reference ranges are: 0 - 150 years: 70 mg/dL - 99 mg/dL Current interpretive data was last revised on 2013. POC Device Number [id number] 1 CERLULY MARCANO Blood 01/11/2025 10:2 3 PM CDT 01/11/2025 10:23 PM CDT us Parag Xie MD LAB POCT ORDERABLES - DEV ICE Final Result Performing Organization Address [facility] Phone Number [facility] [address] [facility] [place] [address] * (ABNORMAL) POCT glucose (01/11/2025 8:33 PM CDT) Glucose, POC 225(H) 70 - 199 mg/dL Comment: Interpretive Data Glucose is assumed to be non-fasting. Fasting Glucose reference ranges are: 0 - 150 years: 70 mg/dL - 99 mg/dL Current interpretive data was last revised on 2013. POC Device Number [id number] 4 CERLULY JIMENEZWCYDNEY Blood 01/11/2025 8:33 PM CDT 01/11/2025 8:33 PM CDT Parag Xie MD LAB POCT ORDERABLES - DEV ICE Final Result Performing Organization Address [facility] de Phone Number HERBER BJWCH [address] [facility] [place] [address] * (ABNORMAL) POCT glucose (01/11/2025 7:01 PM CDT) Glucose, POC 203(H) 70 - 199 mg/dL Comment: Interpretive Data Glucose is assumed to be non-fasting. Fasting Glucose reference ranges are: 0 - 150 years: 70 mg/dL - 99 mg/dL Current interpretive data was last revised on 2013. POC Device Number [id number] 4 HERBER MARCANO Blood 01/11/2025 7:01 PM CDT 01/11/2025 7:01 PM CDT Parag Xie MD LAB POCT ORDERABLES - DEV ICE Final Result Performing Organization Address [facility] de Phone Number [facility] [address] [facility] [employer] [place], [place] [id number] * POCT glucose (01/11/2025 5:03 PM CDT) Glucose, POC 142 70 - 199 mg/dL Comment: Interpretive Data Glucose is assumed to be non-fasting. Fasting Glucose reference ranges are: 0 - 150 years: 70 mg/dL - 99 mg/dL Current interpretive data was last revised on 2013. POC Device Number [id number] 4 HERBER MARCANO Blood 01/11/2025 5:03 PM CDT 01/11/2025 5:03 PM CDT Parag Xie MD LAB POCT ORDERABLES - DEV ICE Final Result Performing Organization Address [facility] Co de Phone Number [facility] [address] [facility] [place] [address] * POCT glucose (01/11/2025 12:02 PM CDT) Glucose, POC 87 70 - 199 mg/dL Comment: Interpretive Data Glucose is assumed to be non-fasting. Fasting Glucose reference ranges are: 0 - 150 years: 70 mg/dL - 99 mg/dL Current interpretive data was last revised on 2013. POC Device Number [id number] 9 CERLULY JIMENEZWCH Blood 01/11/2025 12:0 2 PM CDT 01/11/2025 12:02 PM CDT Parag Xie MD LAB POCT ORDERABLES - DEV ICE Final Result Performing Organization Address [facility] de Phone Number [facility] [address] [facility] [employer] [place], [place] [id number] * POCT glucose (01/11/2025 9:14 AM CDT) Glucose, POC 194 70 - 199 mg/dL Comment: Interpretive Data Glucose is assumed to be non-fasting. Fasting Glucose reference ranges are: 0 - 150 years: 70 mg/dL - 99 mg/dL Current interpretive data was last revised on 2013. POC Device Number [id number] 9 HERBER REINA Blood 01/11/2025 9:14 AM CDT 01/11/2025 9:14 AM CDT Parag Xie MD LAB POCT ORDERABLES - DEV ICE Final Result Performing Organization Address [facility] Phone Number HERBER JIMENEZCH [address] [facility] [place] [address] * (ABNORMAL) eGFR (01/11/2025 8:27 AM CDT) [...] ORDERABLES Final Re sult Performing Organization Address [facility] Co de Phone Number HERBER [facility] [address] [facility] [place] [address] * (ABNORMAL) Phosphorus (01/11/2025 8:27 AM CDT) Phosphorus, pl 6.9(H) 2.3 - 4.5 mg/dL Blood 01/11/2025 8:27 AM CDT 01/11/2025 8:35 AM CDT Narrative [facility] - 01/11/2025 8:53 AM CDT Please draw with dialysis Lisbet Franz MD LAB BLOOD ORDERABLES Final Re sult Performing Organization Address [facility] de Phone Number [facility] [id number] [facility]. [facility] [employer] [place], [place] [id number] * Magnesium (01/11/2025 8:27 AM CDT) Magnesium [...] ORDERABLES Final Re sult Performing Organization Address [facility]/ZIP Co de Phone Number HERBER MARCANO [address] [employer] [address] * (ABNORMAL) Basic metabolic panel (01/11/2025 8:27 AM CDT) Sodium 139 135 - 145 mmol/L Potassium, pl 4.1 3.3 - 4.9 mmol/L CERNER BJ[facility] Chloride 103 97 - 110 mmol/L CERNER [facility] CO2 23 22 - 32 mmol/L CERNER [facility] Anion gap 13 2 - 15 mmol/L [facility] BUN 45(H) 6 - 25 mg/dL CERNER [facility] Creatinine 6.97(H) 0.60 - 1.10 mg/dL [facility]ER [facility] Glucose 237(H) 70 - 199 mg/dL [facility] Comment: Interpretive Data Fasting glucose >/= [...] 2022. Calcium 7.1(L) 8.5 - 10.3 mg/dL [facility] Blood 01/11/2025 8:27 AM CDT 01/11/2025 8:35 AM CDT [facility] - 01/11/2025 8:53 AM CDT Please draw with dialysis Lisbet Franz MD LAB BLOOD ORDERABLES Final Re sult Performing Organization Address [facility]/ZIP Co de Phone Number HERBER REINACH [address] [address] [employer] [employer] [place], [place] [phone] * (ABNORMAL) POCT glucose (01/11/2025 7:52 AM CDT) Glucose, POC 249(H) 70 - 199 mg/dL Comment: Interpretive Data Glucose is assumed to be non-fasting. Fasting Glucose reference ranges are: 0 - 150 years: 70 mg/dL - 99 mg/dL Current interpretive data was last revised on 2013. POC Device Number [id number] 9 HERBER MARCANO Blood 01/11/2025 7:52 AM CDT 01/11/2025 7:52 AM CDT Parag Xie MD LAB POCT ORDERABLES - DEV ICE Final Result Performing Organization Address [facility] de Phone Number HERBER JIMENEZCH [address] [address] [facility] [place] [address] * (ABNORMAL) POCT glucose (01/11/2025 4:35 AM CDT) Glucose, POC 267(H) 70 - 199 mg/dL Comment: Interpretive Data Glucose is assumed to be non-fasting. Fasting Glucose reference ranges are: 0 - 150 years: 70 mg/dL - 99 mg/dL Current interpretive data was last revised on 2013. POC Device Number [id number] HERBER MARCANO Glucose comment 1 RN/MD Notified HERBER MARCANO Blood 01/11/2025 4:35 AM CDT 01/11/2025 4:35 AM CDT Parag Xie MD LAB POCT ORDERABLES - DEV ICE Final Result Performing Organization Address [facility] de Phone Number HERBER JIMENEZCH [address] [facility] [place] [address] * (ABNORMAL) POCT glucose (01/10/2025 11:36 PM CDT) Glucose, POC 220(H) 70 - 199 mg/dL Comment: Interpretive Data Glucose is assumed to be non-fasting. Fasting Glucose reference ranges are: 0 - 150 years: 70 mg/dL - 99 mg/dL Current interpretive data was last revised on 2013. POC Device Number [id number] HERBER MARCANO Glucose comment 1 RN/MD Notified HERBER MARCANO Blood 01/10/2025 11:3 6 PM CDT 01/10/2025 11:36 PM CDT Parag Xie MD LAB POCT ORDERABLES - DEV ICE Final Result Performing Organization Address [facility] de Phone Number HERBER JIMENEZWCH [address] [facility] [place] [address] * POCT glucose (01/10/2025 9:11 PM CDT) Glucose, POC 142 70 - 199 mg/dL Comment: Interpretive Data Glucose is assumed to be non-fasting. Fasting Glucose reference ranges are: 0 - 150 years: 70 mg/dL - 99 mg/dL Current interpretive data was last revised on 2013. POC Device Number [id number] 9 HERBER MARCANO Blood 01/10/2025 9:11 PM CDT 01/10/2025 9:11 PM CDT Parag Xie MD LAB POCT ORDERABLES - DEV ICE Final Result Performing Organization Address [facility] de Phone Number [facility] BJWCH [address] [facility] [place] [address] * POCT glucose (01/10/2025 7:44 PM CDT) Glucose, POC 159 70 - 199 mg/dL Comment: Interpretive Data Glucose is assumed to be non-fasting. Fasting Glucose reference ranges are: 0 - 150 years: 70 mg/dL - 99 mg/dL Current interpretive data was last revised on 2013. POC Device Number [id number] 9 BERLINNER BARBARAWCH Blood 01/10/2025 7:44 PM CDT 01/10/2025 7:44 PM CDT Parag Xie MD LAB POCT ORDERABLES - DEV ICE Final Result Performing Organization Address [facility] de Phone Number HERBER REINACH [address] [facility] [place] [address] * (ABNORMAL) POCT glucose (01/10/2025 5:29 PM CDT) Glucose, POC 230(H) 70 - 199 mg/dL Comment: Interpretive Data Glucose is assumed to be non-fasting. Fasting Glucose reference ranges are: 0 - 150 years: 70 mg/dL - 99 mg/dL Current interpretive data was last revised on 2013. POC Device Number [id number] 9 HERBER MARCANO Blood 01/10/2025 5:29 PM CDT 01/10/2025 5:29 PM CDT Parag Xie MD LAB POCT ORDERABLES - DEV ICE Final Result Performing Organization Address [facility] de Phone Number HERBER JIMENEZWCH [address] [address] [facility]. [place] [address] * (ABNORMAL) POCT glucose (01/10/2025 1:56 PM CDT) Glucose, POC 233(H) 70 - 199 mg/dL Comment: Interpretive Data Glucose is assumed to be non-fasting. Fasting Glucose reference ranges are: 0 - 150 years: 70 mg/dL - 99 mg/dL Current interpretive data was last revised on 2013. POC Device Number [id number] 9 HERBER JIMENEZWCH Blood 01/10/2025 1:56 PM CDT 01/10/2025 1:56 PM CDT Parag Xie MD LAB POCT ORDERABLES - DEV ICE Final Result Performing Organization Address [facility] de Phone Number HERBER JIMENEZWCH [address] [facility] [place] [address] * (ABNORMAL) POCT glucose (01/10/2025 12:01 PM CDT) Glucose, POC 331(H) 70 - 199 mg/dL Comment: Interpretive Data Glucose is assumed to be non-fasting. Fasting Glucose reference ranges are: 0 - 150 years: 70 mg/dL - 99 mg/dL Current interpretive data was last revised on 2013. POC Device Number [id number] 4 HERBER MARCANO Blood 01/10/2025 12:0 1 PM CDT 01/10/2025 12:01 PM CDT Parag Xie MD LAB POCT ORDERABLES - DEV ICE Final Result Performing Organization Address [facility] de Phone Number [facility] [address] [facility] [place] [address] * (ABNORMAL) POCT glucose (01/10/2025 10:22 AM CDT) Glucose, POC 335(H) 70 - 199 mg/dL Comment: Interpretive Data Glucose is assumed to be non-fasting. Fasting Glucose reference ranges are: 0 - 150 years: 70 mg/dL - 99 mg/dL Current interpretive data was last revised on 2013. POC Device Number [id number] [facility] Glucose comment 1 RN/MD Notified HERBER MARCANO Blood 01/10/2025 10:2 2 AM CDT 01/10/2025 10:22 AM CDT Paarg Xie MD LAB POCT ORDERABLES - DEV ICE Final Result Performing Organization Address [facility] Co de Phone Number HERBER JIMENEZCH [address] [address] [facility] [place] [address] * POCT glucose (01/10/2025 7:57 AM CDT) Glucose, POC 185 70 - 199 mg/dL Comment: Interpretive Data Glucose is assumed to be non-fasting. Fasting Glucose reference ranges are: 0 - 150 years: 70 mg/dL - 99 mg/dL Current interpretive data was last revised on 2013. POC Device Number [id number] 4 HERBER MARCANO Blood 01/10/2025 7:57 AM CDT 01/10/2025 7:57 AM CDT Parag Xie MD LAB POCT ORDERABLES - DEV ICE Final Result Performing Organization Address [facility] de Phone Number [facility] [address] [facility] [place] [address] * POCT glucose (01/10/2025 4:07 AM CDT) Pathologist [facility] Glucose, POC 114 70 - 199 mg/dL Comment: Interpretive Data Glucose is assumed to be non-fasting. Fasting Glucose reference ranges are: 0 - 150 years: 70 mg/dL - 99 mg/dL Current interpretive data was last revised on 2013. POC Device Number [id number] 4 HERBER MARCANO Blood 01/10/2025 4:07 AM CDT 01/10/2025 4:07 AM CDT Parag Xie MD LAB POCT ORDERABLES - DEV ICE Final Result Performing Organization Address [facility] de Phone Number [facility] BJWCH [address] [facility] [place] [address] * (ABNORMAL) eGFR (01/10/2025 4:02 AM CDT) [...] BLOOD ORDERABLES Marli lipscomb Result HERBER REINA [address] [facility]. [place] [address] * (ABNORMAL) CBC without differential (01/10/2025 4:02 AM CDT) WBC 4.58 3.80 - 9.90 K/cumm Hgb 9.0(L) 11.9 - 15.5 g/dL BANNERNER [facility] Hct 28.2(L) 35.6 - 45.5 % CERNER [facility] Plt 274 150 - 400 K/cumm BANNERNER [facility] MPV 10.6 9.1 - 12.3 fL BANNERNER [facility] RBC 3.18(L) 3.90 - 5.20 M/cumm CERNER [facility] MCV 88.7 81.3 - 96.4 fL CERNER [facility] MCH 28.3 27.1 - 33.3 pg CERNER B[facility] MCHC 31.9(L) 32.3 - 35.7 g/dL CERNER [facility] RDW CV 15.2(H) 11.1 - 14.9 % CERNER [facility] RDW SD 48.3(H) 35.7 - 48.1 fL BANNERNER BJW[facility] NRBC abs 0.00 0.00 - 0.01 K/cumm CERNER [facility] Blood 01/10/2025 4:02 AM CDT 01/10/2025 4:20 AM CDT Parag Xie MD LAB BLOOD ORDERABLES Marli l Result Performing Organization Address City/[facility]/ZIP Co de Phone Number HERBER MARCANO [address] [place] [address] * (ABNORMAL) Basic metabolic panel (01/10/2025 4:02 AM CDT) [facility] Sodium 136 135 - 145 mmol/L Potassium, pl 3.5 3.3 - 4.9 mmol/L [facility] Chloride 98 97 - 110 mmol/L CERNER [facility] CO2 24 22 - 32 mmol/L CERNER [facility] Anion gap 14 2 - 15 mmol/L CERNER [facility] BUN 22 6 - 25 mg/dL [facility] Creatinine 5.00(H) 0.60 - 1.10 mg/dL [facility] Glucose 109 70 - 199 mg/dL [facility] Comment: Interpretive Data Fasting glucose [...] 2022. Calcium 7.7(L) 8.5 - 10.3 mg/dL [facility] Blood 01/10/2025 4:02 AM CDT 01/10/2025 4:20 AM CDT Parag Xie MD LAB BLOOD ORDERABLES Marli l Result Performing Organization Address [facility]/ZIP Co de Phone Number HERBER JIMENEZWCH [phone] [address] [place] [address] * POCT glucose (01/09/2025 11:05 PM CDT) Glucose, POC 159 70 - 199 mg/dL Comment: Interpretive Data Glucose is assumed to be non-fasting. Fasting Glucose reference ranges are: 0 - 150 years: 70 mg/dL - 99 mg/dL Current interpretive data was last revised on 2013. POC Device Number [id number] 1 HERBER MARCANO Blood 01/09/2025 11:0 5 PM CDT 01/09/2025 11:05 PM CDT Parag Xie MD LAB POCT ORDERABLES - DEV ICE Final Result Performing Organization Address [facility] de Phone Number [facility] [address] [facility] [employer] [place], [place] [id number] * (ABNORMAL) POCT glucose (01/09/2025 10:22 PM CDT) Glucose, POC 60(L) 70 - 199 mg/dL Comment: Interpretive Data Glucose is assumed to be non-fasting. Fasting Glucose reference ranges are: 0 - 150 years: 70 mg/dL - 99 mg/dL Current interpretive data was last revised on 2013. POC Device Number [id number] 1 HERBER MARCANO Blood 01/09/2025 10:2 2 PM CDT 01/09/2025 10:22 PM CDT Parag Xie MD LAB POCT ORDERABLES - DEV ICE Final Result Performing Organization Address [facility] de Phone Number HERBER BJWCH [address] [facility] [place] [address] * POCT glucose (01/09/2025 8:46 PM CDT) Glucose, POC 80 70 - 199 mg/dL Comment: Interpretive Data Glucose is assumed to be non-fasting. Fasting Glucose reference ranges are: 0 - 150 years: 70 mg/dL - 99 mg/dL Current interpretive data was last revised on 2013. POC Device Number [id number] 1 HERBER MARCANO Blood 01/09/2025 8:46 PM CDT 01/09/2025 8:46 PM CDT Parag Xie MD LAB POCT ORDERABLES - DEV ICE Final Result Performing Organization Address [facility] de Phone Number [facility] [address] [facility] [place] [address] * POCT glucose (01/09/2025 6:06 PM CDT) Glucose, POC 193 70 - 199 mg/dL Comment: Interpretive Data Glucose is assumed to be non-fasting. Fasting Glucose reference ranges are: 0 - 150 years: 70 mg/dL - 99 mg/dL Current interpretive data was last revised on 2013. POC Device Number [id number] 4 HERBER MARCANO Blood 01/09/2025 6:06 PM CDT 01/09/2025 6:06 PM CDT Parag Xie MD LAB POCT ORDERABLES - DEV ICE Final Result Performing Organization Address [facility] Phone Number HER[facility] [address] [facility] [place] [address] * (ABNORMAL) POCT glucose (01/09/2025 5:41 PM CDT) Glucose, POC 64(L) 70 - 199 mg/dL Comment: Interpretive Data Glucose is assumed to be non-fasting. Fasting Glucose reference ranges are: 0 - 150 years: 70 mg/dL - 99 mg/dL Current interpretive data was last revised on 2013. POC Device Number [id number] 4 HERBER MARCANO Blood 01/09/2025 5:41 PM CDT 01/09/2025 5:41 PM CDT Parag Xie MD LAB POCT ORDERABLES - DEV ICE Final Result Performing Organization Address [facility]/ZIP Co de Phone Number HERBER JIMENEZWCH [address] [employer] [place] [address] * POCT glucose (01/09/2025 5:05 PM CDT) Glucose, POC 100 70 - 199 mg/dL Comment: Interpretive Data Glucose is assumed to be non-fasting. Fasting Glucose reference ranges are: 0 - 150 years: 70 mg/dL - 99 mg/dL Current interpretive data was last revised on 2013. POC Device Number [id number] 4 HERBER REINAEstimote Blood 01/09/2025 5:05 PM CDT 01/09/2025 5:05 PM CDT Parag Xie MD LAB POCT ORDERABLES - DEV ICE Final Result Performing Organization Address [facility] de Phone Number HERBER BJWCH [phone] [employer] [place] [address] * (ABNORMAL) POCT glucose (01/09/2025 2:05 PM CDT) Pathologist [facility] Glucose, POC 228(H) 70 - 199 mg/dL Comment: Interpretive Data Glucose is assumed to be non-fasting. Fasting Glucose reference ranges are: 0 - 150 years: 70 mg/dL - 99 mg/dL Current interpretive data was last revised on 2013. POC Device Number [id number] 4 HERBER MARCANO Blood 01/09/2025 2:05 PM CDT 01/09/2025 2:05 PM CDT Parag Xie MD LAB POCT ORDERABLES - DEV ICE Final Result Performing Organization Address [facility] Co de Phone Number HERBER BJWCH [address] [employer] [place] [address] * Hepatitis B Surface Antigen Blood (01/09/2025 1:16 PM CDT) [facility] HepBsAg Nonreactive Nonreactive Comment:Testing performed by : [facility], [facility] [facility], [place]., [address] Blood 01/09/2025 1:16 PM CDT 01/09/2025 2:13 PM CDT Russell Weller MD LAB MICROBIOLOGY - GENER AL ORDERABLES Final Result Performing Organization Address [facility] Co de Phone Number [facility] BJW[facility] [address] [facility] [place] [address] * (ABNORMAL) POCT glucose (01/09/2025 12:44 PM CDT) Glucose, POC 298(H) 70 - 199 mg/dL Comment: Interpretive Data Glucose is assumed to be non-fasting. Fasting Glucose reference ranges are: 0 - 150 years: 70 mg/dL - 99 mg/dL Current interpretive data was last revised on 2013. POC Device Number [id number] 4 HERBER MARCANO Blood 01/09/2025 12:4 4 PM CDT 01/09/2025 12:44 PM CDT Parag Xie MD LAB POCT ORDERABLES - DEV ICE Final Result Performing Organization Address [facility] Co de Phone Number CERNER BJW[facility] [address] [facility] [place] [address] * (ABNORMAL) POCT glucose (01/09/2025 12:00 PM CDT) Glucose, POC 342(H) 70 - 199 mg/dL Comment: Interpretive Data Glucose is assumed to be non-fasting. Fasting Glucose reference ranges are: 0 - 150 years: 70 mg/dL - 99 mg/dL Current interpretive data was last revised on 2013. POC Device Number [id number] 4 HERBER JIMENEZWCH Blood 01/09/2025 12:0 0 PM CDT 01/09/2025 12:00 PM CDT Parag Xie MD LAB POCT ORDERABLES - DEV ICE Final Result Performing Organization Address [facility] de Phone Number HERBER BJW[facility] [address] [facility] [place] [address] * (ABNORMAL) POCT glucose (01/09/2025 10:55 AM CDT) [facility] Signature Glucose, POC 358(H) 70 - 199 mg/dL Comment: Interpretive Data Glucose is assumed to be non-fasting. Fasting Glucose reference ranges are: 0 - 150 years: 70 mg/dL - 99 mg/dL Current interpretive data was last revised on 2013. POC Device Number [id number] 4 HERBER BJW[facility] Blood 01/09/2025 10:5 5 AM CDT 01/09/2025 10:55 AM CDT Parag Xie MD LAB POCT ORDERABLES - DEV ICE Final Result Performing Organization Address [facility] Phone Number HERBER JIMENEZWCH [address] [facility] [place] [address] * IR Gastrojejunostomy Tube Placement (01/09/2025 10:32 AM CDT) Anatomical Region Laterality Modality Body N/A X-Ray Angiograph y 01/09/2025 4:17 PM CDT Impressions 01/09/2025 4:17 PM CDT Successful placement of a 18 Citizen Of [place] Arlene single lumen gastrojejunostomy catheter. PLAN: The [...] was obtained. Prior to beginning the procedure, [place] Protocol was performed to confirm the patient's [...] was obtained. Prior to beginning the procedure, [place] Protocol was performed to confirm the patient's [...] jejunum. IMPRESSION: Successful placement of a 18 Citizen Of [place] [place] Arlene single lumen gastrojejunostomy catheter. PLAN: The catheter is ready for feeding immediately through the jejunal port. Please flush the catheter with 20 cc of water after every feed and once each shift. Never attempt to administer crushed pills through the jejunal lumen. Electronically signed by: Jamie Bell M.D. Yessenia RAMIREZ IR PROCEDURES Final Res ult * IN AN ELECTIVE ENDOTRACHEAL AIRWAY, IN AN PROCEDURE PLACEHOLDER (01/09/2025 9:43 AM CDT) [...] last revised on 2013. POC Device Number [id number] CERNER [facility] Blood 01/09/2025 9:02 AM CDT 01/09/2025 9:02 AM CDT Parag Xie MD LAB POCT ORDERABLES - DEV ICE Final Result [facility] [address] [facility]. [employer] [place] [address] * POCT hCG, urine (01/09/2025 [...] last revised on 2013. POC Device Number [id number] HERBER MARCANO Blood 01/09/2025 7:09 AM CDT 01/09/2025 7:09 AM CDT Parag Xie MD LAB POCT ORDERABLES - DEV ICE Final Result Performing Organization Address [facility] Co de Phone Number [facility] [address] [place] [address] * POCT glucose (01/09/2025 4:11 AM CDT) Glucose, POC 130 70 - 199 mg/dL Comment: Interpretive Data Glucose is assumed to be non-fasting. Fasting Glucose reference ranges are: 0 - 150 years: 70 mg/dL - 99 mg/dL Current interpretive data was last revised on 2013. POC Device Number [id number] HERBER MARCANO Blood 01/09/2025 4:11 AM CDT 01/09/2025 4:11 AM CDT Yessenia Dominguez MD LAB POCT ORDERABLES - DEVIC E Final Result Performing Organization Address [facility]/ZIP Co de Phone Number [facility] [address] [employer] [place], [place] [id number] * Beta-hydroxybutyrate (01/09/2025 12:50 AM CDT) Beta-Hydroxybut yrate <0.5 0.0 - 0.5 mmol/L Blood 01/09/2025 12:5 0 AM CDT 01/09/2025 12:57 AM CDT Yessenia Dominguez MD LAB BLOOD ORDERABLES Edited Result - Final Performing Organization Address [facility] Co de Phone Number [facility] [address] [facility]. [facility] [employer] [place], [place] [id number] * (ABNORMAL) eGFR (01/09/2025 12:49 AM CDT) [...] BLOOD ORDERABLES Final Result Performing Organization Address [facility]/ZIP Co de Phone Number HERBER [facility] [address] [facility] [employer] [place], [place] [id number] * Blood gas, venous (01/09/2025 12:49 AM CDT) pH, Venous 7.34 7.32 - 7.43 PCO2, Venous 42 40 - 50 mmHg [facility] PO2, Venous 60 mmHg [facility] Comment: Interpretive Data No reference range established. Current interpretive data was last revised 2019. HCO3 Venous, Calculated 23 20 - 30 mmol/L [facility] BE, venous -3 mmol/L [facility] Comment: Interpretive Data No Reference Range Established Current Interpretive Data was last revised on 2017. Blood 01/09/2025 12:4 9 AM CDT 01/09/2025 12:57 AM CDT us Yessenia Dominguez MD LAB BLOOD ORDERABLES Final Result [facility] [address] [facility]. [place] [address] * (ABNORMAL) Basic metabolic panel (01/09/2025 12:49 AM CDT) Pathologist [facility] Sodium 138 135 - 145 mmol/L Potassium, pl 4.4 3.3 - 4.9 mmol/L [facility] Chloride 101 97 - 110 mmol/L [facility] CO2 22 22 - 32 mmol/L [facility] Anion gap 15 2 - 15 mmol/L [facility] BUN 55(H) 6 - 25 mg/dL [facility] Creatinine 9.20(H) 0.60 - 1.10 mg/dL [facility] Glucose 292(H) 70 - 199 mg/dL [facility] Comment: Interpretive Data Fasting glucose >/= [...] 2022. Calcium 7.2(L) 8.5 - 10.3 mg/dL HERBER MARCANO Blood 01/09/2025 12:4 9 AM CDT 01/09/2025 12:57 AM CDT Yessenia Dominguez MD LAB BLOOD ORDERABLES Final Result Performing Organization Address [facility] Phone Number [facility] [address] [facility] [place] [address] * (ABNORMAL) POCT glucose (01/09/2025 12:16 AM CDT) Glucose, POC 322(H) 70 - 199 mg/dL Comment: Interpretive Data Glucose is assumed to be non-fasting. Fasting Glucose reference ranges are: 0 - 150 years: 70 mg/dL - 99 mg/dL Current interpretive data was last revised on 2013. POC Device Number [id number] HERBER MARCANO Blood 01/09/2025 12:1 6 AM CDT 01/09/2025 12:16 AM CDT Yessenia Dominguez MD LAB POCT ORDERABLES - DEVIC E Final Result Performing Organization Address [facility] Phone Number [facility] [address] [place] [address] * (ABNORMAL) POCT glucose (01/08/2025 10:21 PM CDT) Glucose, POC 399(H) 70 - 199 mg/dL Comment: Interpretive Data Glucose is assumed to be non-fasting. Fasting Glucose reference ranges are: 0 - 150 years: 70 mg/dL - 99 mg/dL Current interpretive data was last revised on 2013. POC Device Number [id number] HERBER MARCANO Blood 01/08/2025 10:2 1 PM CDT 01/08/2025 10:21 PM CDT Yessenia Dominguez MD LAB POCT ORDERABLES - DEVIC E Final Result [facility] [address] [facility]. [place] [address] * XR Chest 1 View (01/08/2025 9:59 [...] MD LAB BLOOD ORDERABLES F inal Result [facility] [address] [facility]. [place] [address] * Differential, auto (01/08/2025 8:57 PM CDT) Pathologist [facility] Neutrophil abs 3.57 1.50 - 6.50 K/cumm Imm gran abs 0.02 0.00 - 0.10 K/cumm [facility] Lymphocyte abs 1.68 0.80 - 3.30 K/cumm [facility] Monocyte abs 0.66 0.20 - 0.80 K/cumm C[facility] Eosinophil abs 0.22 0.00 - 0.50 K/cumm [facility] Basophil abs 0.01 0.00 - 0.10 K/cumm [facility] Neutrophil pct 57.9 % [facility] RE[facility] Comment: Interpretive Data Percent cell count reference ranges are not reported, since discordance with absolute values may lead to misinterpretation of CBC data. Current Interpretive Data was last revised on 2017. Imm gran pct 0.3 % [facility] Comment: Interpretive Data Percent cell count [...] on 2017. Basophil pct 0.2 % C[facility]ER [facility] Comment: Interpretive Data Percent cell count reference ranges are not reported, since discordance with absolute values may lead to misinterpretation of CBC data. Current Interpretive Data was last revised on 2017. Blood 01/08/2025 8:57 PM CDT 01/08/2025 9:02 PM CDT Yareli Mitchell MD LAB BLOOD ORDERABLES F inal Result Performing Organization Address City/[facility]/ZIP Co de Phone Number [facility] BJWCH [address] [place] [address] * Beta-hydroxybutyrate (01/08/2025 8:57 PM CDT) Beta-Hydroxybut yrate <0.5 0.0 - 0.5 mmol/L Blood 01/08/2025 8:57 PM CDT 01/08/2025 9:02 PM CDT Yessenia Dominguez MD LAB BLOOD ORDERABLES Final Result Performing Organization Address City/[facility]/ZIP Co de Phone Number [facility] BJ[facility] [address] [employer]. Department of Laboratories [place] [phone] * (ABNORMAL) CBC with auto differential (01/08/2025 8:57 PM CDT) Pathologist [facility] WBC 6.16 3.80 - 9.90 K/cumm Hgb 9.2(L) 11.9 - 15.5 g/dL [facility] Hct 29.0(L) 35.6 - 45.5 % [facility] Plt 320 150 - 400 K/cumm [facility] MPV 10.6 9.1 - 12.3 fL [facility] RBC 3.25(L) 3.90 - 5.20 M/cumm [facility] MCV 89.2 81.3 - 96.4 fL [facility] MCH 28.3 27.1 - 33.3 pg [facility] MCHC 31.7(L) 32.3 - 35.7 g/dL [facility] RDW CV 14.9 11.1 - 14.9 % [facility] RDW SD 48.1 35.7 - 48.1 fL [facility] NRBC abs 0.00 0.00 - 0.01 K/cumm [facility] Blood 01/08/2025 8:57 PM CDT 01/08/2025 9:02 PM CDT us Yareli Mitchell MD LAB BLOOD ORDERABLES F inal Result [facility] [address] [facility]. [place] [address] * Protime-INR (01/08/2025 8:57 PM CDT) Pathologist [facility] PT 11.7 10.2 - 13.5 sec INR 1.04 0.90 - 1.20 [facility] Comment: Interpretive data Oral anticoagulant therapeutic ranges: Venous thromboembolism prophylaxis or treatment: 2.0-3.0 CARDIOLOGY Standard range: 2.0-3.0 High-intensity range: 2.5-3.5 Refer to indication-specific guidelines for appropriate target ranges for prosthetic heart valve replacement. Current interpretive data was last revised on 2019. Blood 01/08/2025 8:57 PM CDT 01/08/2025 9:02 PM CDT us Yareli Mitchell MD LAB BLOOD ORDERABLES F inal Result [facility] [address] [facility] Department [place] [address] * (ABNORMAL) Renal function panel (01/08/2025 8:57 [...] ORDERABLES F inal Result Performing Organization Address [facility] Co de Phone Number [facility] JIMENEZ[facility] [address] [employer] [place] [address] * (ABNORMAL) POCT glucose (01/08/2025 7:44 PM CDT) Glucose, POC 320(H) 70 - 199 mg/dL Comment: Interpretive Data Glucose is assumed to be non-fasting. Fasting Glucose reference ranges are: 0 - 150 years: 70 mg/dL - 99 mg/dL Current interpretive data was last revised on 2013. POC Device Number [id number] CERNER [employer] Blood 01/08/2025 7:44 PM CDT 01/08/2025 7:44 PM CDT us Yessenia Dominguez MD LAB POCT ORDERABLES - DEVIC E Final Result Performing Organization Address [facility] de Phone Number [facility] [address] [facility] [place] [address] * (ABNORMAL) POCT glucose (01/08/2025 6:43 PM CDT) Glucose, POC 320(H) 70 - 199 mg/dL Comment: Interpretive Data Glucose is assumed to be non-fasting. Fasting Glucose reference ranges are: 0 - 150 years: 70 mg/dL - 99 mg/dL Current interpretive data was last revised on 2013. POC Device Number [id number] CERNER Hyper[facility]WCH Blood 01/08/2025 6:43 PM CDT 01/08/2025 6:43 PM CDT Viraj Olivo MD LAB POCT ORDERABLES - DEVICE Fin al Result Performing Organization Address [facility] Co de Phone Number [facility] [address] [facility]. [place] [address] * XR Foot Right 3 or More [...] severe secondary right ankle osteoarthritis. Small effusion. Zhha-wd-hdonkhoc pes planus with old healed midfoot fractures, polyarticular midfoot osteoarthritis and fragmentation. Soft tissue swelling is present. Arterial atherosclerosis is noted. Mild 1st metatarsophalangeal joint osteoarthritis. IMPRESSION: 1. Old healed distal right tibia and fibular fractures with hindfoot valgus and moderate to severe secondary right ankle osteoarthritis. 2. Ybjv-gx-eyqgfxzl right pes planus with old healed midfoot fractures, polyarticular midfoot osteoarthritis and fragmentation. THIS IS AN ELECTRONICALLY VERIFIED FINAL REPORT 01/09/2025 4:28 PM - Electronically signed by Andrei Nguyen M.D. MF T: Report ID: [id number] Reading Location: [id number] Procedure Note Andrei Nguyen MD - 01/09/2025 [...] severe secondary right ankle osteoarthritis. Small effusion. Xjtf-al-xtsmyoom pes planus with oldhealed midfoot fractures, polyarticular midfoot osteoarthritis and fragmentation. Soft tissue swelling is present. Arterial atherosclerosis is noted. Lynm5nq metatarsophalangeal joint osteoarthritis. IMPRESSION: 1. Old healed distal right tibia and fibular fractures with hindfootvalgus and moderate to severe secondary right ankle osteoarthritis. 2. Vrot-yl-gegxemuz right pes planus with old healed midfoot fractures, polyarticular midfoot osteoarthritis and fragmentation. THIS IS AN ELECTRONICALLY VERIFIED FINAL REPORT 01/09/2025 4:28 PM - Electronically signed by Andrei Nguyen M.D. T: Report ID: [id number] Reading Location: [id number] Raul Clark DO IMG XR PROCEDURES Final [...] severe secondary right ankle osteoarthritis. Small effusion. Sdjh-qj-mecmmjar pes planus with old healed midfoot fractures, polyarticular midfoot osteoarthritis and fragmentation. Soft tissue swelling is present. Arterial atherosclerosis is noted. Mild 1st metatarsophalangeal joint osteoarthritis. IMPRESSION: 1. Old healed distal right tibia and fibular fractures with hindfoot valgus and moderate to severe secondary right ankle osteoarthritis. 2. Ucri-tp-xzfixwat right pes planus with old healed midfoot fractures, polyarticular midfoot osteoarthritis and fragmentation. THIS IS AN ELECTRONICALLY VERIFIED FINAL REPORT 01/09/2025 4:28 PM - Electronically signed by Andrei Nguyen M.D. T: Report ID: [id number] Reading Location: [id number] Procedure Note Andrei Nguyen MD - 01/09/2025 [...] severe secondary right ankle osteoarthritis. Small effusion. Ydjd-uu-ucoimmje pes planus with oldhealed midfoot fractures, polyarticular midfoot osteoarthritis and fragmentation. Soft tissue swelling is present. Arterial atherosclerosis is noted. Pmoo3js metatarsophalangeal joint osteoarthritis. IMPRESSION: 1. Old healed distal right tibia and fibular fractures with hindfootvalgus and moderate to severe secondary right ankle osteoarthritis. 2. Okke-lf-lwxeedis right pes planus with old healed midfoot fractures, polyarticular midfoot osteoarthritis and fragmentation. THIS IS AN ELECTRONICALLY VERIFIED FINAL REPORT 01/09/2025 4:28 PM - Electronically signed by Andrei Nguyen M.D. T: Report ID: [id number] Reading Location: [id number] Raul Clark DO IMG XR PROCEDURES Final Result * POCT glucose (12/26/2024 9:47 AM CDT) Glucose, POC 197 70 - 199 mg/dL Blood 12/26/2024 9:47 AM CDT 12/26/2024 9:47 AM CDT us Young Vasquez MD LAB POCT ORDERABLES - DEVICE Final Result [facility] [place] [address] * Colonoscopy (12/26/2024 9:16 AM CDT) Anatomical Region Laterality Modality Other Narrative Procedure Note Young Vasquez MD - 12/26/2024 9:16 AM CDT GI ENDOSCOPY [facility] Patient Name: Brissa Angela Procedure Date: 12/26/2024 9:16 AM Date of : 1995 Admit Type: Outpatient Age: 29 Gender: Female Attending MD: Young Vasquez M.D., Room: [facility] ENDOSCOPY ROOM 8 Note Status: Finalized [...] was passed under direct vision.The PCF [id number] endoscope was introduced through the anus and [...] MD ENDOSCOPY PROCEDURES F inal Result * IN AN ELECTIVE ENDOTRACHEAL AIRWAY, IN AN PROCEDURE PLACEHOLDER (12/26/2024 9:02 AM CDT) Narrative Federico Beltran CRNA - 12/26/2024 9:02 AM CDT Federico Beltran CRNA 12/26/2024 9:03 AM Airway Patient location: OR Urgency: elective Indications for airway management: anesthesia Difficult airway: no Staff: Supervising provider: Dylan Frias MD Placed by: HPLC CHEMIST: Federico Beltran CRNA Emergent airway documentation: Risks [...] Biopsy) 12/26/2024 9:25 AM CDT Narrative PATHOLOGY [facility] - 12/27/2024 6:13 PM CDT EPIC results best viewed via link to PDF [facility] Gudelia Hen[facility] [place] [address] Note to Patients: This report may contain [...] Gender: F : 1995 (Age: 29) Address: [address] [place] [id number] [facility] #: [id number] Taken:12/26/2024 Received:12/26/2024 Reported: 12/27/2024 Patient Type: [facility] Service: Gastro Location: Physician(s): Young Vasquez [...] Surgical Pathology and Flow Cytometry Departments at [facility] as part of an ongoing quality reviewer program and in compliance with federally mandated [...] Surgical Pathology and Flow Cytometry Departments of [facility]. It has not been cleared or approved by the U. S. Food and Drug Administration. IMAGES AND SCANNED DOCUMENTS, IF INCLUDED, ONLY VIEWABLE IN PDF VERSION OF REPORT us Young Vasquez MD LAB PATHOLOGY ORDERABL ES Final Result PATHOLOGY [facility] 3rd Floor [place], [place] [phone] * EGD (12/26/2024 8:55 AM CDT) Anatomical Region Laterality Modality Other Narrative Procedure Note Young Vasquez MD - 12/26/2024 8:55 AM CDT GI ENDOSCOPY [facility] Patient Name: Brissa Angela Procedure Date: 12/26/2024 8:55 AM Date of : 1995 Admit Type: Outpatient Age: 29 Gender: Female Attending MD: Young Vasquez M.D., Room: [facility] ENDOSCOPY ROOM 8 Note Status: Finalized [...] HCG, ur, POC Negative Negative Lot Number [id number] QC Backgroud Clear Acceptable QC Control Line Acceptable Urine 12/26/2024 8:43 AM CDT Young Vasquez MD POINT OF CARE TEST ORD ERABLES Final Result * POCT glucose (12/26/2024 8:41 AM CDT) Glucose, POC 102 70 - 199 mg/dL Blood 12/26/2024 8:41 AM CDT 12/26/2024 8:41 AM CDT Young Vasquez MD LAB POCT ORDERABLES - DEVICE Final Result [facility] [place] [address] * (ABNORMAL) POCT glucose (12/26/2024 7:53 AM CDT) Glucose, POC 67(L) 70 - 199 mg/dL Blood 12/26/2024 7:53 AM CDT 12/26/2024 7:53 AM CDT Young Vasquez MD LAB POCT ORDERABLES - DEVICE Final Result Performing Organization Address City/[facility] Co de Phone Number [facility] [place] [address] * (ABNORMAL) eGFR (12/26/2024 7:03 AM CDT) [...] MD LAB BLOOD ORDERABLES F inal Result [facility] [place] [address] * (ABNORMAL) Comprehensive metabolic panel (12/26/2024 7:03 AM CDT) Sodium 129(L) 135 - 145 mmol/L Potassium, pl 4.8 3.3 - 4.9 mmol/L [facility] Comment:Hemolyzed; Potassium value may be falsely elevated by as much as 0.6-1.0 mmol/L. Suggest redraw and reanalysis. Chloride 94(L) 97 - 110 mmol/L [facility] CO2 25 22 - 32 mmol/L [facility] Anion gap 10 2 - 15 mmol/L [facility] BUN 18 6 - 25 mg/dL [facility] Creatinine 6.44(H) 0.60 - 1.10 mg/dL [facility] Glucose 110 70 - 199 mg/dL [facility] Comment: Interpretive Data Fasting glucose >/= [...] 2022. Calcium 8.2(L) 8.5 - 10.3 mg/dL [facility] Bilirubin, total 0.4 0.1 - 1.2 mg/dL [facility] Protein, pl 7.9 6.5 - 8.5 g/dL [facility] Albumin 3.7 3.5 - 5.0 g/dL [facility] Alk phos 181(H) 40 - 130 Units/L [facility] ALT 18 7 - 45 Units/L [facility] AST 31 10 - 45 Units/L [facility] Comment:Hemolyzed; result ma y be falsely elevated Blood 12/26/2024 7:03 AM CDT 12/26/2024 7:04 AM CDT Young Vasquez MD LAB BLOOD ORDERABLES F inal Result [facility] [place] [address] * CT Abdomen and Pelvis Enterography W [...] signed by Mahin CORDOVA T: Report ID: [id number] Reading Location: [id number] Procedure Note Mahin Balderrama MD - 12/22/2024 [...] signed by Mahin CORDOVA T: Report ID: [id number] Reading Location: [place] [address] Raul Clark DO IMG CT PROCEDURES Final [...] signed by Mahin CORDOVA T: Report ID: [id number] Reading Location: [id number] Procedure Note Mahin Balderrama MD - 12/22/2024 [...] signed by Mahin CORDOVA T: Report ID: [id number] Reading Location: [place] [address] Raul Clark DO IMG CT PROCEDURES Final [...] by Andrei Nguyen M.D. T: Report ID: [id number] Reading Location: [id number] Procedure Note Andrei Nguyen MD - 12/10/2024 [...] by Andrei Nguyen M.D. T: Report ID: [id number] Reading Location: [id number] Raul Wiechert DO IMG XR PROCEDURES Final Result * [...] by Andrei Nguyen M.D. T: Report ID: [id number] Reading Location: [id number] Procedure Note Andrei Nguyen MD - 12/10/2024 [...] by Andrei Nguyen M.D. T: Report ID: [id number] Reading Location: [place] [address] Raul Clark DO IMG XR PROCEDURES Final Result * (ABNORMAL) Hemoglobin A1c (10/30/2024 2:24 AM CDT) Pathologist [facility] Hgb A1C 8.8(H) 4.0 - 5.6 % Estimated Average Glucose 206 mg/dL [facility]BER JIMENEZ Comment: The ADA recommends reporting an estimated [...] MD LAB BLOOD ORDERABLES Marli lipscomb Result [facility] [place] [address] * Lipid panel (10/29/2024 8:13 PM CDT) [...] revised on 2017. Triglycerides 92 <=149 mg/dL [facility] Comment: Interpretive Data Ages < or [...] revised on 2017. HDL 49 >=40 mg/dL [facility] Comment: Interpretive Data Ages < or [...] on 2017. LDL, calculated 58 <=129 mg/dL [facility] Comment: Interpretive Data Ages < or [...] revised on 2023. Non-HDL Cholesterol 75 mg/dL [facility] Comment: Interpretive Data Ages < or [...] last revised on 2017. Chol/HDL ratio 3 [facility] Blood 10/29/2024 8:13 PM CDT 10/29/2024 8:27 PM CDT Dennis Cadet MD LAB BLOOD ORDERABLES Marli lipscomb Result [facility] Department [place] [address] * TSH (01/09/2024 3:52 PM CDT) Thyroid Stimulating Hormone 2.46 0.30 - 4.20 mcIUnit/mL Blood 01/09/2024 3:52 PM CDT 01/09/2024 4:46 PM CDT Sailaja Ramos MD LAB BLOOD ORDERABLES Final Result [facility] [place] [address] * Hepatitis panel, acute Blood (12/24/2023 7:26 [...] revised on 2019. 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 Source: [facility] [place]. 08/20/2024 CP-YARDER PUNCHER Comment:Added from external infection. Source: [facility] [place]. Kleb pneumo [facility] 10/31/2024 10/31/2024 Insurance MEDICARE MEDICARE Advance Directives For more information, please contact: [phone] * Full Code (Latest Code Status on [...] 2:03 PM 06/28/2024 7:52 PM Care Teams What Job Titles Mean Relationship Specialty Start Date End Date Edgardo Aldridge MD [address] [facility] [address] [place] [address] PCP - General Family Medicine 04/02/23 Andrei Chaves MD PhD [address] [address] Referring Physician General Surgery 03/17/23 Olivia Phelps MD [address] [facility] [address] [place], [place] [address] Consulting Physician Nephrology 03/17/23 Odilon Tellez MD [address] [facility] [address] [place] [address] Referring Physician Nephrology 11/12/23 Ayaka Thomas MD [address] [facility] [address] [place] [address] Fellow Internal Medicine 12/17/23 Yumi Jones NP [address] [facility] [address] [place] [address] Nurse Practitioner Hospice and Palliative Medicine 08/16/23 Odilon Tellez MD [address] [facility] [address] [place] [address] Consulting Physician Nephrology 12/05/24
--- OUTSIDE RECORDS SUMMARY | 2025-02-22 17:34 | XMS_ITS | Encounter Summary ---
Author Organization [facility] Address [address] [place] [address] Phone Care Team Providers Care Ic Designer Gate Arrays Name Role Phone Shown, Devang Alegre DO Primary Care Provider [phone] Encounter Details Date Type Department Care Team (Late st Contact Info) Description 12/03/2021 Telephone [facility] [address] [place] [id number] Leslie Pruitt Social History Tobacco Use Types Packs/Day Years Used Date Smoking Tobacco: Never Smokeless Tobacco: Never Alcohol Use Standard Drinks/Week Comments No 0 (1 standard drink = 0.6 oz pur e alcohol) Comments No Sex and Gender Information Value Date Recorded Sex Assigned at Female 11/05/2020 3:34 PM CDT Legal Sex Female 12:26 PM PHYSICAL METEOROLOGIST Gender Identity Female 11/05/2020 3:34 PM CDT [...] d for the patient 03/29/2021 7:04 AM PHYSICAL METEOROLOGIST documented as of this encounter Care Teams Ic Designer Gate Arrays Relationship Specialty Start Date End Date Shown, Devang Alegre DO [address] [place] [address] PCP - General Family Medicine 09/11/21 12/06/24 documented as of this encounter
--- OUTSIDE RECORDS SUMMARY | 2025-02-22 17:34 | XMS_ITS | Encounter Summary ---
Author Organization [facility] Facility Care Team Providers Care Core Checker Name Role Phone Unknown, Notinfile Primary Care Provider Unavail able Lay Villalta MD Primary Care Provider [phone] Tremayne Kebede MD Unavailable [phone] Georgia Mcbride MANAGER MSW Unavailable [phone] Miscellaneous, Not In File Unavailable Unava ilable Eun Camacho Primary Care Provider + Cony Pemberton MANUFACTURING INSPECTOR Unavailable [phone] Antonette Vernon RN Unavailable [phone] Andrei Chaves MD PhD Unavailable [phone] Olivia Phelps MD Unavailable [phone] Edgardo Aldridge MD Primary Care Provider [phone] Odilon Tellez MD Unavailable [phone] Miscellaneous, Not In File Unavailable Unava ilable Ct Boggs MANUFACTURING INSPECTOR Unavailable [phone] Odilon Tellez MD Unavailable [phone] Tracey Felix RN Unavailable [phone] Ayaka Thomas MD Unavailable [phone] Yumi Jones NP Unavailable [phone] TosinRogersRuthy MANUFACTURING INSPECTOR Unavailable Unavaila ble Feli Boggs RN Unavailable [phone] Mendel Bowling RN Unavailable [phone] Leslie Baptiste [facility] Unavailable [phone] Mendel Bowling RN Unavailable [phone] Odilon Tellez MD Unavailable [phone] Mavis Barahona RN Unavailable [phone] Mahnaz Garcia RN Unavailable Jaimie Glez RN Unavailable [phone] Encounter Details Date Type Department Care Team (Latest Contact Info) Description 09/13/2016 Orders Only [facility] CLINCONV Provider, MD S[facility] [address] [place] [address] Social History Tobacco Use Types Packs/Day Years Used Date Smoking Tobacco: Never Comments Unknown Sex and Gender Information Value Date Recorded Sex Assigned at Not on file Legal Sex Female 9:16 AM TRACK INSPECTING SUPERVISOR Gender Identity Not on file Sexual [...] CDT COVID19 02/02/2020 02/02/2020 02/19/2020 3:05 AM TRACK INSPECTING SUPERVISOR COVID: Recovered Comment:Added based on recent COVID [...] COVID: Suspected 06/15/2023 06/15/2023 06/15/2023 5:53 PM TRACK INSPECTING SUPERVISOR C. 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 Source: [facility]. 08/20/2024 Carbapenemase, Unspecified Comment:Added from external infection. Source: [facility]. Kleb pneumo [facility] 09/23/2024 10/31/2024 3:07 PM C DT CP-WAFER MACHINE OPERATOR Comment:Added from external infection. Source: [facility]. Kleb pneumo [facility] 10/31/2024 10/31/2024 documented as of this encounter Care Teams Core Checker Relationship Specialty Start Date End Date Unknown, Notinfile PCP - General 12/28/16 08/23/18 Lay Villalta MD PCP - General Family Medicine 08/24/18 07/17/21 Eun Camacho PA PCP - General Family Medicine 07/18/21 03/08/23 Edgardo Aldridge MD [address] [facility] 2 or 4 [place] [id number] PCP - General Family Medicine 04/02/23 Tremayne Kebede MD Consulting Physician Gastroenterology 02/05/20 3 Georgia Mcbride LPN [address] [place] [address] [address] [place] [address] ACO Care Sidewalk Inspector 11/28/20 12/19/20 Miscellaneous, Not In File 07/17/21 03/16/23 Cony Pemberton, MANUFACTURING INSPECTOR [address] [facility] ([facility]) Mailstop [phone] [place] [address] SHOP Outpatient Automotive Project Engineer 12/07/22 12/07/22 Antonette Vernon, KADY [address] [place] [address] SHOP Outpatient Automotive Project Engineer 12/08/22 01/05/23 Andrei Chaves MD PhD [address] [facility] [address] [place] [address] Referring Physician General Surgery 03/17/23 Olivia Phelps MD [address] [place], [place] [address] Consulting Physician Nephrology 03/17/23 Odilon Tellez MD [address] [facility] [address] or 4 [place], [place] [address] Consulting Physician Nephrology 05/01/23 12/04/24 Miscellaneous, Not In File 07/08/23 01/24/24 Ct Boggs, [facility] [address] [facility] ([facility]) Mailstop [phone] [place] [address] SHOP Outpatient Automotive Project Engineer 07/09/23 08/05/23 Odilon Tellez MD [address] [place] [address] Referring Physician Nephrology 11/12/23 Tracey Felix, KADY [address] [place] [address] Front Maker Lockstitch 11/12/23 11/17/23 Ayaka Thomas MD [address] [facility] [address] [place] [address] Fellow Internal Medicine 12/17/23 Yumi Jones NP [address] [facility] [address] [place] [address] Nurse Practitioner Hospice and Palliative Medicine 08/16/23 Ruthy Leahy LCSW White Sidewall Tire Buffer 12/31/23 02/22/24 Feli Boggs, RN [address] [place] [address] [address] [place] [address] Warp Coiler 12/31/23 01/02/24 Mendel Bowling, KADY [address] [place] [address] [address] [place] [address] Warp Coiler 01/03/24 03/23/24 Leslie Baptiste, [address] [place] [address] Pharmacist Pharmacy 01/13/24 02/03/24 Mendel Bowling, KADY [address] [place] [address] DR [address] [place] [address] Warp Coiler 11/07/24 01/04/25 Odilon Tellez MD [address] [facility] [address] [place] [address] Consulting Physician Nephrology 12/05/24 Mavis Barahona, RN [address] [facility] [address] [place] [address] Front Maker Lockstitch 12/20/24 01/08/25 Mahnaz Garcia, KADY [address] [place] [address] [address] [place] [address] Warp Coiler 01/15/25 01/15/25 Jaimie Glez RN [address] [place] [address] [address] [place] [address] Warp Coiler 01/29/25 02/07/25 documented as of this encounter
--- OUTSIDE RECORDS SUMMARY | 2025-02-22 17:35 | XMS_ITS | Encounter Summary ---
Author Organization [facility] Address [address] [place] [address] Phone Care Team Providers Care Bureau Chief Name Role Phone Andrei Chaves MD PhD Unavailable [phone] Olivia Phelps MD Unavailable [phone] Edgardo Aldridge MD Primary Care Provider Odilon Tellez MD Unavailable [phone] Ayaka Thomas MD Unavailable [phone] Yumi Jones NP Unavailable [phone] Mendel Bowling RN Unavailable [phone] Odilon Tellez MD Unavailable [phone] Mavis Barahona RN Unavailable [phone] Mahnaz Garcia RN Unavailable Jaimie Glez RN Unavailable [phone] Encounter Details Date Type Department Care Team (Late st Contact Info) Description 12/26/2024 Results Follow-Up [facility] Medicine Gastroenterology [address] [facility] Advanced Medicine 12th [place] [address] [place] [phone] Young Vasquez MD 1 [facility] [address] [place] [address] CT Abdomen and Pelvis Enterography W Contrast Social History Tobacco Use Types Packs/Day Years Used Date Smoking Tobacco: Never Smokeless Tobacco: Never Alcohol Use Standard Drinks/Week Comments Not Currently 0 (1 standard drink = 0.6 oz pur e alcohol) [facility] Utilities Answer Date Recorded In the past 12 months has e electric, gas, oil, or water [employer] threatened to shut off services in your [...] often do you attend chur ch or anglican services? Never 11/07/2024 Do you belong to any clubs o r organizations such as jehovah's witness groups, unions, fraternal or athletic groups, or [...] time in the past 12 m [facility], were you homeless or living [...] on file Legal Sex Female 9:16 AM RARE/ENDANGERED SPECIES SPECIALIST Gender Identity Not on file Sexual Orientation Not on file documented as of this encounter Functional Status * Question Answer Date of Assessment Author MAP (mmHg) 105 12/26/2024 11:03 AM CDT Zulema Samayoa RN * Question Answer Date of Assessment Author Brigette Fall Risk Score (Score >= 45 places fall precaution order) 35 12/26/2024 8:00 AM CDT Lance Rivera RN Prior Fall Event (Autopopula tin from EMR) None found 12/26/2024 8:00 AM CDT Eliza Rivera RN * Alcohol Use Question Answer Date of Assessment Author Q1: How often do you have a drink containing alcohol? Never 12/26/2024 8:17 AM CDT Eliza Rivera RN documented as of this encounter Miscellaneous Notes [...] Time 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 Source: [facility]. 08/20/2024 CP-OIL PLANT OPERATOR Comment:Added from external infection. Source: [facility]. Kleb pneumo [facility] 10/31/2024 10/31/2024 documented as of this encounter Care Teams Bureau Chief Relationship Specialty Start Date End Date Edgardo Aldridge MD [address] [facility] 2 or 4 [place] [address] PCP - General Family Medicine 04/02/23 Andrei Chaves MD PhD [address] [facility] [address] [place] [address] Referring Physician General Surgery 03/17/23 Olivia Phelps MD [address] [place] [address] Consulting Physician Nephrology 03/17/23 Odilon Tellez MD [address] [facility] [address] [place] [address] Referring Physician Nephrology 11/12/23 Ayaka Thomas MD [address] [facility] [address] [place] [address] Fellow Internal Medicine 12/17/23 Yumi Jones NP 1 [facility] [address] [place] [address] Nurse Practitioner Hospice and Palliative Medicine 08/16/23 Mendel Bowling, RN [address] [place] [address] [address] [place] [address] Solidworks Drafter 11/07/24 01/04/25 Odilon Tellez MD [address]50 [facility] [address] [place] [address] Consulting Physician Nephrology 12/05/24 Mavis Barahona, RN 4590 [facility] [address] [place] [address] Crop Ranch Hand 12/20/24 Mahnaz Garcia RN [address] [place] [address] [address] [place] [address] Solidworks Drafter 01/15/25 01/15/25 Jaimie Glez, KADY [address] [place] [address] [address] [place] [address] Solidworks Drafter 01/29/25 02/07/25 documented as of this encounter
--- OUTSIDE RECORDS SUMMARY | 2025-02-22 17:35 | XMS_ITS | Encounter Summary ---
Author Organization [facility] Address [facility] [place] [address] Care Team Providers Care Customer Solutions Supervisor Name Role Phone Lay Cota MD Primary Care Provider [phone] Edgardo Aldridge MD Primary Care Provider [phone] Keely Ugalde GLOBAL CTO Unavailable [phone] Keely Ugalde GLOBAL CTO Unavailable [phone] Odilon Tellez MD Unavailable [phone] Leonardo Washburn MD Unavailable [phone] Young Vasquez MD Unavailable [phone] Andrei Chaves MD Unavailable [phone] Encounter Details Date Type Department Care Team (Late st Contact Info) Description 03/07/2024 Prep for Procedure [facility] [place], [place] [id number] Juan Long MD [address] [place] [address] Social History Tobacco Use Types Packs/Day Years Used Date Smoking Tobacco: Never Smokeless Tobacco: Never Alcohol Use Standard Drinks/Week Comments Not Currently 0 (1 standard drink = 0.6 oz pur e alcohol) occasionally [facility] Utilities Answer Date Recorded In the past 12 months has [employer] electric, gas, oil, or water company threatened [...] How often do you attend chur or taoist services? Never 12/31/2022 Do you belong to any clubs o r organizations such as holiness groups, unions, fraternal or athletic groups, or [...] Recorded Patient Health Questionnaire-2 Score 0 12/31/2022 [facility] Occupat ional Health - Occupational Stress [...] slept in a custodial (including now)? No 03/20/2023 Housing Stability Vital [...] 1:51 PM Dunia Wilson RN Active * [place] Suicide Severity Rating Scale (Screener/Recent Self-Report) Question [...] st Contact Info) Description 05/24/2025 10:20 AM MANAGER BEAUTY Office Visit [facility] Multispecialty Care - [facility] [address] [facility] [address] [place] [phone] Leonardo Washburn MD 3 [facility] [address] [place], [place] [id number] documented as of this encounter Goals Goal Patient Goal Type Associated Problems Recent Progress Patient-Stated? Author HOME TO INDEPENDENT LIVING. General No Chiquis Alicia, RN Patient will return to prior living situation and remain independent in ADLs upon discharge from hospital Lifestyle No Jeri Lara LSW Health - patient able to perform ADLs independently Lifestyle No Latrice Marie, DIAGNOSTIC MEDICAL SONOGRAPHER Health - patient able to perform ADLs independently Lifestyle No Latrice Marie, DIAGNOSTIC MEDICAL SONOGRAPHER documented as of this encounter Results * (ABNORMAL) BASIC METABOLIC PANEL (03/07/2024 11:47 AM MANAGER BEAUTY) GLUCOSE 121(H) 70 - 99 MG/DL 03/07/2024 1:23 PM MANAGER BEAUTY [facility] BUN 36(H) 7 - 18 MG/DL 03/07/2024 1:23 PM MANAGER BEAUTY [facility] CREATININE S/P/B 5.63(HH) 0.55 - 1.02 MG/DL 03/07/2024 1:23 PM MANAGER BEAUTY [facility] Comment: Critical Result(s) Called at: 13:22:32 on 03/07/2024 by: ADRIANA WALLACE to and read back by:BILL HAQUE SODIUM S/P/B 138 136 - 145 MMOL/L 03/07/2024 1:23 PM MANAGER BEAUTY [facility] POTASSIUM S/P/B 3.9 3.5 - 5.1 MMOL/L 03/07/2024 1:23 PM MANAGER BEAUTY [facility] CHLORIDE S/P/B 108 97 - 115 MMOL/L 03/07/2024 1:23 PM MANAGER BEAUTY [facility] CO2 22.3 21 - 32 MMOL/L 03/07/2024 1:[address] [facility] CALCIUM S/P/B 7.7(L) 8.5 - 10.1 MG/DL 03/07/2024 1:[address] [facility] ANION GAP 7.7 2 - 10 MMOL/L 03/07/2024 1:[address] [facility] BUN CREATININE RATIO 6.4 6 - 26 03/07/2024 1:[address] [facility] GFR ESTIMATE 10(L) >90 ML/MIN/1.7 3 M2 03/07/2024 1:[address] [facility] Comment: NOTE: eGFR is not calculated for patients <18 years of age or gender unknown. This is an estimated GFR calculation using the new CKD EPI creatinine equation without race and so does not require a correction factor for race. This estimated GFR should not be used for calculating drug doses. 03/07/2024 11:4 7 AM MANAGER BEAUTY Mehnaz Boogie [facility] Final Resu lt [facility] 3 [place] [address], * (ABNORMAL) CBC W/DIFF AUTOMATED (03/07/2024 11:47 AM MANAGER BEAUTY) WBC 7.02 4.5 - 11.0 x10'3/uL 03/07/2024 12:[address] [facility] RBC 4.76 4.20 - 5.40 x10'6/uL 03/07/2024 12:[address] [facility] HGB 11.6(L) 12.0 - 16.0 G/DL 03/07/2024 12:[address] [facility] HCT 37.7(L) 38.0 - 48.0 % 03/07/2024 12:[address] [facility] MCV 79.2(L) 81.0 - 99.0 FL 03/07/2024 12:[address] [facility] MCH 24.4(L) 27.0 - 31.0 PG 03/07/2024 12:[address] [facility] MCHC 30.8(L) 32.0 - 36.0 G/DL 03/07/2024 12:[address] [facility] RDW 16.5(H) 11.5 - 14.5 % 03/07/2024 12:[address] [facility] PLT 369 130 - 400 x10'3/uL 03/07/2024 12:[address] [facility] MPV 10.1 9.3 - 12.2 FL 03/07/2024 12:[address] [facility] DIFFERENTIAL TYPE AUTOMATED DIFFERENTIAL 03/07/2024 12:[address] [facility] NEUTROPHILS % 55.0 % 03/07/2024 12:[address] [facility] LYMPHOCYTES % 29.6 % 03/07/2024 12:[address] [facility] MONOCYTES % 7.5 % 03/07/2024 12:[address] [facility] EOSINOPHILS 7.3 % 03/07/2024 12:[address] [facility] BASOPHILS 0.3 % 03/07/2024 12:[address] [facility] IMMATURE GRANS % 0.3 % 03/07/20 12:[address] [facility] ABS. NEUTROPHILS 3.86 1.80 - 7.70 x10'3/uL 03/07/2024 12:00 PM MANAGER BEAUTY [facility] ABS. LYMPHOCYTES 2.08 1.00 - 4.80 x10'3/uL 03/07/2024 12:00 PM MANAGER BEAUTY [facility] ABS. MONOCYTES 0.53 0.24 - 0.86 x10'3/uL 03/07/2024 12:00 PM MANAGER BEAUTY [facility] ABS. EOSINOPHILS 0.51(H) 0.04 - 0.36 x10'3/uL 03/07/2024 12:00 PM MANAGER BEAUTY [facility] ABS. BASOPHILS 0.02 0.01 - 0.08 x10'3/uL 03/07/2024 12:00 PM MANAGER BEAUTY [facility] ABS. IMMATURE GRANULOCYTES 0.02 0.00 - 0.49 x10'3/uL 03/07/2024 12:00 PM MANAGER BEAUTY [facility] 03/07/2024 11:4 7 AM MANAGER BEAUTY Mehnaz Boogie [facility] Final Resu lt [facility] 3 [place] [address], * (ABNORMAL) HEMOGLOBIN, GLYCOSYLATED (03/07/2024 11:47 AM MANAGER BEAUTY) HGB A1C 13.5(H) <5.7 % 03/07/2024 1:55 PM MANAGER BEAUTY [facility] Comment: ADA GUIDELINES 2010 5.7 TO 6.4% INCREASED RISK OF DIABETES > OR = 6.5% CONSISTENT WITH DIABETES ESTIMATED AVG GLUCOSE 341 mg/dL 03/07/2024 1:55 PM MANAGER BEAUTY [facility] 03/07/2024 11:4 7 AM MANAGER BEAUTY us Juan Long MD LABORATORY Final Result [facility] [address] [place] [address], [place] [phone] documented in this encounter Visit Diagnoses Diagnosis Encounter for adjustment and management of vascular access device- Primary Gastroparesis Diabetes mellitus ([facility]) Type II or unspecified type diabetes mellitus without mention of complication, not stated as uncontrolled Uncontrolled type 1 diabetes mellitus with hyperglycemia, with long-term current use of insulin ([facility]) prison (current) use of insulin ([facility]) documented in this encounter Additional Health Concerns Infection Onset Date Last Indicated Resolved Time MRSA Comment:04/27/23 +MRSA Urine 10/23/23 +MRSA from [facility]. Added from external infection. Source: [facility] Phys[facility]. 02/09/24 +MRSA Nares from [facility]. 05/08/24 +MRSA Nares 10/23/2023 12/04/2024 COVID-19 Rule Out 03/12/2024 03/12/2024 03/12/2024 3:51 PM MANAGER BEAUTY COVID-19 Rule Out 04/04/2024 04/04/2024 04/04/2024 5:10 PM MANAGER BEAUTY COVID-19 Rule Out 04/24/2024 04/24/2024 04/24/2024 8:24 PM MANAGER BEAUTY RSV 04/24/2024 04/24/2024 05/04/2024 12:3 2 AM MANAGER BEAUTY COVID-19 Rule Out 05/08/2024 05/08/2024 05/08/2024 4:15 PM MANAGER BEAUTY Tuberculosis Rule-Out 05/09/2024 05/09/20242024 10:09 AM MANAGER BEAUTY COVID-19 Rule Out 05/17/2024 05/17/2024 05/17/2024 4:44 PM MANAGER BEAUTY Respiratory Rule Out 07/05/2024 07/05/2024 025 10:03 [...] documented as of this encounter Care Teams Customer Solutions Supervisor Relationship Specialty Start Date End Date Lay Cota MD PCP - General FAMILY PRACTICE 12/10/22 07/02/24 Edgardo Aldridge MD [address] [facility] [address] [address] PCP - General FAMILY PRACTICE 07/03/24 Keely Ugalde APRN [address] [place] [address] PCP - Hospice Attending 10/06/24 Keely Ugalde APRN [address] [place] [address] Nurse Practitioner PALLIATIVE CARE 10/09/24 Odilon Tellez MD [address] [address] Consulting Physician NEPHROLOGY 11/17/24 Leonardo Washburn MD [address] [address] Consulting Physician Internal Medicine Pulmonary Disease 11/17/24 Young Vasquez MD 49[address] [facility] 8 [place] [address] GASTROENTEROLOGY 11/17/24 Andrei Chaves MD [address] [place] [address] SURGERY 11/17/24 documented as of this encounter
--- OUTSIDE RECORDS SUMMARY | 2025-02-22 17:35 | XMS_ITS ---
Author Organization [facility] Address [address] [place] [address] Care Team Providers Care Wool Sorter Name Role Phone Andrei Chaves MD PhD Unavailable [phone] Olivia Phelps MD Unavailable [phone] Edgardo Aldridge MD Primary Care Provider Odilon Tellez MD Unavailable [phone] Ayaka Thomas MD Unavailable [phone] Yumi Jones NP Unavailable [phone] Odilon Tellez MD Unavailable [phone] Dialysis Access Sites Type Status Location Placement Date Removal Da te Hemodialysis Cath Double 11/03/23 Right Internal Jugular Active Right Neck (side) - Anterior 11/03/2023 Hemodialysis Cath Triple 10/27/23 Right Femoral Inactive Right Thigh - Anterior 10/27/2023 Hemodialysis Cath Double 09/17/22 Left Subclavian Inactive Left Breast - Upper 09/17/202201/2024 Hemodialysis AV Access 09/17/22 Subclavian Inactive Left Breast - Upper 09/17/2022 11/22/19 23 Historical Dialysis Procedures Date BP Pre BP [...] PLACEMENT IP Routine 01/09/2025 10:32 AM CDT DE AN PROCEDURE PLACEHOLDER Routine 12/19 9:43 AM CDT DE AN ELECTIVE ENDOTRACHEAL AIRWAY Routine 01/09/2025 9:43 [...] AM CDT COLONOSCOPY 12/26/2024 9:16 AM CDT DE AN PROCEDURE PLACEHOLDER Routine 12/2024 9:02 AM CDT DE AN ELECTIVE ENDOTRACHEAL AIRWAY Routine 12/26/2024 9:02 [...] Medium 01/11/2024 Medications blood-glucose meter,continuous (Dexcom G6 Certified Family Mediator) miscIndications:Unc ontrolled type 1 diabetes mellitus with hyperglycemia, with long-term current use of insulin (HCC) 1 Dexcom G6 Certified Family Mediator 1 each 023 Active OneTouch Delica Plus [...] total) by mouth daily 90 tablet 3 Active losartan (COZAAR) 100 mg tablet Take 1 tablet (100 mg total) by mouth daily 90 tablet 3 Active Omnipod 5 G6-G7 Pods, Gen 5, [...] hyperglycemia, with long-term current use of insulin ([facility]) Will use 1 sensor every 10 days. 1 box = 3 sensors. 3 each 11 025 Active blood-glucose transmitter (Dexcom G6 Transmitter) deviceIndications:U ncontrolled type 1 diabetes mellitus with hyperglycemia, with long-term current use of insulin ([facility]) Will use 1 transmitter every [...] to four times a day. 100 each 025 Active acetaminophen 500 mg capsule Take 1 capsule (500 mg total) by mouth every 6 (six) hours as needed for pain or fever 025 Active polyethylene glycol (MIRALAX) 17 gram packet Take 1 packet (17 g total) by mouth daily as needed for constipation 025 Active ammonium lactate (LAC-HYDRIN) 12 % lotion Apply topically 2 (two) times a day 400 g 1 025 Active insulin lispro (HumaLOG, ADMELOG) 100 unit/mL vial for injection Inject 0-4 Units under the skin nightly 025 2025 Active pen needle, diabetic (Pen Needle) [...] consider outpatient followup (e.g. renal US). clinical haematologist associated with adverse incidents 01/09/2025 Overview (01/09/2025): [...] - ADAT: Plan to try solid food 930 AM and tube feeds 01/16 PM - [...] admission. 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 Continue to monitor. Hold any [...] mostly IV dilaudid and was on a ACROBATIC RIGGER briefly. - continues to have severe abdominal [...] 2-4 weeks post procedure, they signed off. DINESH recommended pureed diet as tolerated x 2 weeks, then can advance to esophageal soft diet 07/07 for another 2 weeks. They Counseled on adherence to this diet. She requested to advance the diet multiple times across multiple providers and ongoing explanations for the need for adherence, requested to speak with surgeons, they came and reiterated the same. Plan change to esophageal diet today. 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 Has an appointment for GI in [place] next month. Currently is on SSI, but [...] q1hr Assessment & Plan (05/15/2020 2:56 PM HEALTHCARE RISK CONTROL CONSULTANT): Needs letter for another 2 weeks off and when returns needs intermittent restrictions on return with no more than 3 days per week, but not consecutive 3 days Assessment & Plan (05/15/2020 6:29 AM HEALTHCARE RISK CONTROL CONSULTANT): Uncontrolled Cont treatment per GI Cont reglan Has PICC line Assessment & Plan (06/27/2019 8:44 AM CDT): - Chronic emesis which triggers DKA. No active symptoms now. - PCP follow up. - Glucose control as above. Assessment & Plan (04/21/2019 1:24 PM HEALTHCARE RISK CONTROL CONSULTANT): -Patient reports h/o positive gastric emptying study [...] had discussion with patient regarding pain control. assisted opioids would be a very poor choice for her, given her gastroparesis, young age, and potential for developing dependence/addiction. Will not discharge on opioids. 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 Assessment & Plan (06/12/2019 12:12 PM HEALTHCARE RISK CONTROL CONSULTANT): continue lisinopril and toprol xl , clonidine patch Assessment & Plan (06/11/2019 1:52 PM HEALTHCARE RISK CONTROL CONSULTANT): _BP better today , continue lisinopril and toprol xl Assessment & Plan (05/07/2019 2:03 PM HEALTHCARE RISK CONTROL CONSULTANT): On clonidine, metoprolol and lisinopril at home. - continue home clonidine and metoprolol - hold lisinopril for now (? EUGENIE related intestinal angioedema). May need to consider alternative anti-hypertensive if needed as a trial. Assessment & Plan (04/28/2019 4:43 PM HEALTHCARE RISK CONTROL CONSULTANT): - Cont home meds Assessment & Plan (04/27/2019 2:59 PM HEALTHCARE RISK CONTROL CONSULTANT): - Cont home meds Assessment & Plan (04/21/2019 12:59 PM HEALTHCARE RISK CONTROL CONSULTANT): Clonidine patch and metoprolol XL -BP stable Assessment & Plan (04/11/2019 12:43 PM HEALTHCARE RISK CONTROL CONSULTANT): Cont lisinopril and Toprol XL, and due for change of clonidine patch Assessment & Plan (04/10/2019 11:29 AM HEALTHCARE RISK CONTROL CONSULTANT): BP elevated this am but improved after [...] Date Recorded PHQ-2 Total Score 0 01/09/2025 [facility] [place] [facility] Occupat ional Health - Occupational Stress [...] place to sleep or slept in a fci (including now)? No 08/30/2023 PHQ-9 Answer Date [...] any time in the past 12 m [facility], were you homeless or living in a fci (including now)? No 11/07/2024 Social Connection and [...] attend chur ch or faith services? Never 01/17/2025 Do you belong to [...] any time in the past 12 m [facility], were you homeless or living in a fci (including now)? No 01/17/2025 [facility] Utilities Answer Date Recorded In the [...] on file Legal Sex Female 9:16 AM HEALTHCARE RISK CONTROL CONSULTANT Gender Identity Not on file Sexual Orientation [...] 68 kg (150 lb) 02/21/2025 11:55 AM HEALTHCARE RISK CONTROL CONSULTANT Height 162.6 cm (5' 4) 02/21/2025 11:55 AM HEALTHCARE RISK CONTROL CONSULTANT Body Mass Index 25.75 02/21/2025 11:55 AM HEALTHCARE RISK CONTROL CONSULTANT Results * POCT glucose (01/26/2025 10:36 AM CDT) Glucose, POC 135 70 - 199 mg/dL Comment: Interpretive Data Glucose is assumed to be non-fasting. Fasting Glucose reference ranges are: 0 - 150 years: 70 mg/dL - 99 mg/dL Current interpretive data was last revised on 2013. POC Device Number [id number] 1 BERLINNER BARBARAWCH Blood 01/26/2025 10:3 6 AM CDT 01/26/2025 10:36 AM CDT Devang Henning MD LAB POCT ORDERABLES - DEVICE Final Result Performing Organization Address [facility] Phone Number [facility] [phone] [facility] [address] [place], [place] [id number] * POCT glucose (01/26/2025 8:22 AM CDT) Glucose, POC 81 70 - 199 mg/dL Comment: Interpretive Data Glucose is assumed to be non-fasting. Fasting Glucose reference ranges are: 0 - 150 years: 70 mg/dL - 99 mg/dL Current interpretive data was last revised on 2013. POC Device Number [id number] 1 CERNER BARBARAWCH Blood 01/26/2025 8:22 AM CDT 01/26/2025 8:22 AM CDT Devang Henning MD LAB POCT ORDERABLES - DEVICE Final Result Performing Organization Address [facility] Phone Number [facility] [address] [facility] [address] [place], [place] [phone] * POCT glucose (01/26/2025 5:50 AM CDT) Glucose, POC 81 70 - 199 mg/dL Comment: Interpretive Data Glucose is assumed to be non-fasting. Fasting Glucose reference ranges are: 0 - 150 years: 70 mg/dL - 99 mg/dL Current interpretive data was last revised on 2013. POC Device Number [id number] 1 HERBER MARCANO Blood 01/26/2025 5:50 AM CDT 01/26/2025 5:50 AM CDT Devang Henning MD LAB POCT ORDERABLES - DEVICE Final Result Performing Organization Address [facility] de Phone Number [facility] [address] [facility] [address] [place] [address] * POCT glucose (01/26/2025 1:53 AM CDT) Glucose, POC 144 70 - 199 mg/dL Comment: Interpretive Data Glucose is assumed to be non-fasting. Fasting Glucose reference ranges are: 0 - 150 years: 70 mg/dL - 99 mg/dL Current interpretive data was last revised on 2013. POC Device Number [id number] 1 HERBER MARCANO Blood 01/26/2025 1:53 AM CDT 01/26/2025 1:53 AM CDT Devang Henning MD LAB POCT ORDERABLES - DEVICE Final Result Performing Organization Address [facility] de Phone Number HERBER [facility] [phone] [facility] [address] [place], [place] [id number] * POCT glucose (01/25/2025 9:55 PM CDT) Glucose, POC 172 70 - 199 mg/dL Comment: Interpretive Data Glucose is assumed to be non-fasting. Fasting Glucose reference ranges are: 0 - 150 years: 70 mg/dL - 99 mg/dL Current interpretive data was last revised on 2013. POC Device Number [id number] 1 HERBER MARCANO Blood 01/25/2025 9:55 PM CDT 01/25/2025 9:55 PM CDT Devang Henning MD LAB POCT ORDERABLES - DEVICE Final Result Performing Organization Address [facility] Co de Phone Number HERBER REINACH [phone] [place] [address] * POCT glucose (01/25/2025 5:42 PM CDT) Glucose, POC 110 70 - 199 mg/dL Comment: Interpretive Data Glucose is assumed to be non-fasting. Fasting Glucose reference ranges are: 0 - 150 years: 70 mg/dL - 99 mg/dL Current interpretive data was last revised on 2013. POC Device Number [id number] 1 HERBER MARCANO Blood 01/25/2025 5:42 PM CDT 01/25/2025 5:42 PM CDT Devang Henning MD LAB POCT ORDERABLES - DEVICE Final Result Performing Organization Address [facility] Phone Number HERBER JIMENEZWCH [address] [place] [address] * POCT glucose (01/25/2025 12:57 PM CDT) Glucose, POC 81 70 - 199 mg/dL Comment: Interpretive Data Glucose is assumed to be non-fasting. Fasting Glucose reference ranges are: 0 - 150 years: 70 mg/dL - 99 mg/dL Current interpretive data was last revised on 2013. POC Device Number [id number] 1 HERBER MARCANO Blood 01/25/2025 12:5 7 PM CDT 01/25/2025 12:57 PM CDT Devang Henning MD LAB POCT ORDERABLES - DEVICE Final Result Performing Organization Address [facility] Co de Phone Number HERBER JIMENEZWCH [address] [facility] [address] [place] [address] * (ABNORMAL) POCT glucose (01/25/2025 12:39 PM CDT) Glucose, POC 64(L) 70 - 199 mg/dL Comment: Interpretive Data Glucose is assumed to be non-fasting. Fasting Glucose reference ranges are: 0 - 150 years: 70 mg/dL - 99 mg/dL Current interpretive data was last revised on 2013. POC Device Number [id number] [facility] Glucose comment 1 RN/MD Notified HERBER REINACH Blood 01/25/2025 12:3 9 PM CDT 01/25/2025 12:39 PM CDT Devang Henning MD LAB POCT ORDERABLES - DEVICE Final Result Performing Organization Address [facility] Co de Phone Number [facility] [address] [facility] [address] [place] [address] * POCT glucose (01/25/2025 10:43 AM CDT) Pathologist [facility] Glucose, POC 84 70 - 199 mg/dL Comment: Interpretive Data Glucose is assumed to be non-fasting. Fasting Glucose reference ranges are: 0 - 150 years: 70 mg/dL - 99 mg/dL Current interpretive data was last revised on 2013. POC Device Number [id number] 3 HERBER JIMENEZWCH Blood 01/25/2025 10:4 3 AM CDT 01/25/2025 10:43 AM CDT us Devang Henning MD LAB POCT ORDERABLES - DEVICE Final Result Performing Organization Address City/[facility]/ZIP Co de Phone Number [facility] [address] [facility] [address] [place] [address] * POCT glucose (01/25/2025 9:08 AM CDT) Glucose, POC 90 70 - 199 mg/dL Comment: Interpretive Data Glucose is assumed to be non-fasting. Fasting Glucose reference ranges are: 0 - 150 years: 70 mg/dL - 99 mg/dL Current interpretive data was last revised on 2013. POC Device Number [id number] 3 HERBER MARCANO Blood 01/25/2025 9:08 AM CDT 01/25/2025 9:08 AM CDT Devang Henning MD LAB POCT ORDERABLES - DEVICE Final Result Performing Organization Address [facility] de Phone Number HER[facility] [address] [facility] [address] [place], [place] [phone] * POCT glucose (01/25/2025 7:51 AM CDT) Glucose, POC 99 70 - 199 mg/dL Comment: Interpretive Data Glucose is assumed to be non-fasting. Fasting Glucose reference ranges are: 0 - 150 years: 70 mg/dL - 99 mg/dL Current interpretive data was last revised on 2013. POC Device Number [id number] 3 HERBER MARCANO Blood 01/25/2025 7:51 AM CDT 01/25/2025 7:51 AM CDT Devang Henning MD LAB POCT ORDERABLES - DEVICE Final Result Performing Organization Address [facility] de Phone Number HERBER [facility] [address] [employer] [facility] [place] [address] * POCT glucose (01/25/2025 5:21 AM CDT) Glucose, POC 129 70 - 199 mg/dL Comment: Interpretive Data Glucose is assumed to be non-fasting. Fasting Glucose reference ranges are: 0 - 150 years: 70 mg/dL - 99 mg/dL Current interpretive data was last revised on 2013. POC Device Number [id number] 3 HERBER MARCANO Blood 01/25/2025 5:21 AM CDT 01/25/2025 5:21 AM CDT Devang Henning MD LAB POCT ORDERABLES - DEVICE Final Result Performing Organization Address [facility] Co de Phone Number HERBER JIMENEZWCH [address] [facility]. [facility] [employer] [place], [place] [id number] * (ABNORMAL) eGFR (01/25/2025 5:18 AM CDT) [...] ORDERABLES Final Res ult Performing Organization Address City/[facility]/ZIP Co de Phone Number HERBER [facility] [address] [place] [facility] [employer] [place], [place] [id number] * Magnesium (01/25/2025 5:18 AM CDT) Magnesium 2.4 1.4 - 2.5 mg/dL Comment: Reference Data. Reference values for Labor and Delivery patients: < or = 0.7 mg/dL to > or = 7.3 mg/dL Current reference data last reviewd on 01/16/2015. Blood 01/25/2025 5:18 AM CDT 01/25/2025 5:54 AM CDT us Devang Henning MD LAB BLOOD ORDERABLES Final Result [facility] [address] [facility]. Department [place] [address] * (ABNORMAL) Renal function panel (01/25/2025 5:18 AM CDT) Sodium 137 135 - 145 mmol/L Potassium, pl 5.5(H) 3.3 - 4.9 mmol/L CERNER [facility] Chloride 98 97 - 110 mmol/L C[facility]ER [facility] CO2 27 22 - 32 mmol/L C[facility] Anion gap 12 2 - 15 mmol/L CERNER [facility] BUN 50(H) 6 - 25 mg/dL CERNER [facility] Creatinine 5.75(H) 0.60 - 1.10 mg/dL CERNER [facility] Glucose 112 70 - 199 mg/dL C[facility]ER [facility] Comment: [...] 3.5 - 5.0 g/dL CERNER [facility] Blood 01/25/2025 5:18 AM CDT 01/25/2025 5:54 AM CDT Jeffrey Osorio MD PhD LAB BLOOD ORDERABLES Final Res ult Performing Organization Address [facility] Co de Phone Number HER[facility] JIMENEZCH [address] [facility]. [facility] [address] [place] [address] * POCT glucose (01/25/2025 2:02 AM CDT) Glucose, POC 181 70 - 199 mg/dL Comment: Interpretive Data Glucose is assumed to be non-fasting. Fasting Glucose reference ranges are: 0 - 150 years: 70 mg/dL - 99 mg/dL Current interpretive data was last revised on 2013. POC Device Number [id number] 3 HERBER JIMENEZWCYDNEY Blood 01/25/2025 2:02 AM CDT 01/25/2025 2:02 AM CDT Devang Henning MD LAB POCT ORDERABLES - DEVICE Final Result Performing Organization Address [facility] Co de Phone Number HER[facility] JIMENEZWCH [address] [facility]. [facility] [address] [place] [address] * (ABNORMAL) POCT glucose (01/24/2025 10:05 PM CDT) Glucose, POC 243(H) 70 - 199 mg/dL Comment: Interpretive Data Glucose is assumed to be non-fasting. Fasting Glucose reference ranges are: 0 - 150 years: 70 mg/dL - 99 mg/dL Current interpretive data was last revised on 2013. POC Device Number [id number] 3 BERLINNER BARBARAWCH Blood 01/24/2025 10:0 5 PM CDT 01/24/2025 10:05 PM CDT Devang Henning MD LAB POCT ORDERABLES - DEVICE Final Result Performing Organization Address City/[facility] Co de Phone Number HERBER JIMENEZWCH [address] [facility]. [facility] [address] [place] [address] * POCT glucose (01/24/2025 6:13 PM CDT) Glucose, POC 134 70 - 199 mg/dL Comment: Interpretive Data Glucose is assumed to be non-fasting. Fasting Glucose reference ranges are: 0 - 150 years: 70 mg/dL - 99 mg/dL Current interpretive data was last revised on 2013. POC Device Number [id number] 3 HERBER MARCANO Blood 01/24/2025 6:13 PM CDT 01/24/2025 6:13 PM CDT Devang Henning MD LAB POCT ORDERABLES - DEVICE Final Result Performing Organization Address [facility] de Phone Number [facility] [address] [facility]. [facility] [address] [place] [address] * POCT glucose (01/24/2025 12:59 PM CDT) Glucose, POC 110 70 - 199 mg/dL Comment: Interpretive Data Glucose is assumed to be non-fasting. Fasting Glucose reference ranges are: 0 - 150 years: 70 mg/dL - 99 mg/dL Current interpretive data was last revised on 2013. POC Device Number [id number] 3 HERBER MARCANO Blood 01/24/2025 12:5 9 PM CDT 01/24/2025 12:59 PM CDT Devang Henning MD LAB POCT ORDERABLES - DEVICE Final Result Performing Organization Address [facility] Co de Phone Number [facility] [address] [facility]. [facility] [address] [place] [address] * POCT glucose (01/24/2025 9:32 AM CDT) Glucose, POC 111 70 - 199 mg/dL Comment: Interpretive Data Glucose is assumed to be non-fasting. Fasting Glucose reference ranges are: 0 - 150 years: 70 mg/dL - 99 mg/dL Current interpretive data was last revised on 2013. POC Device Number [id number] 3 HERBER MARCANO Blood 01/24/2025 9:32 AM CDT 01/24/2025 9:32 AM CDT Devang Henning MD LAB POCT ORDERABLES - DEVICE Final Result Performing Organization Address [facility] Co de Phone Number HERBER REINACH [address] [place] [employer] [place], [place] [id number] * (ABNORMAL) eGFR (01/24/2025 5:56 AM CDT) [...] BLOOD ORDERABLES Final Result Performing Organization Address [facility]/ZIP Co de Phone Number HERBER [facility] [address] [employer] [address] * Magnesium (01/24/2025 5:56 AM CDT) Magnesium 2.0 1.4 - 2.5 mg/dL Comment: Reference Data. Reference values for Labor and Delivery patients: < or = 0.7 mg/dL to > or = 7.3 mg/dL Current reference data last reviewd on 01/16/2015. Blood 01/24/2025 5:56 AM CDT 01/24/2025 6:25 AM CDT Devang Henning MD LAB BLOOD ORDERABLES Final Result [facility] [address] [facility]. [employer] [place] [address] * (ABNORMAL) Renal function panel (01/24/2025 5:56 AM CDT) Sodium 134(L) 135 - 145 mmol/L Potassium, pl 4.8 3.3 - 4.9 mmol/L CERNER BJW Chloride 96(L) 97 - 110 mmol/L CERNER [facility] CO2 30 22 - 32 mmol/L C[facility]ER [facility] Anion gap 8 2 - 15 mmol/L [facility] BUN 34(H) 6 - 25 mg/dL CERNER W Creatinine 4.40(H) 0.60 - 1.10 mg/dL CERNER [facility] Glucose 115 70 - 199 mg/dL [facility] Comment: Interpretive Data Fasting glucose >/= [...] pl 3.8 2.3 - 4.5 mg/dL C[facility]ER [facility] Albumin 3.7 3.5 - 5.0 g/dL [facility] Blood 01/24/2025 5:56 AM CDT 01/24/2025 6:25 AM CDT Devang Henning MD LAB BLOOD ORDERABLES Final Result Performing Organization Address [facility] de Phone Number [facility] [address] [facility] [address] [place] [address] * POCT glucose (01/24/2025 5:43 AM CDT) Glucose, POC 115 70 - 199 mg/dL Comment: Interpretive Data Glucose is assumed to be non-fasting. Fasting Glucose reference ranges are: 0 - 150 years: 70 mg/dL - 99 mg/dL Current interpretive data was last revised on 2013. POC Device Number [id number] 3 HERBER REINA Blood 01/24/2025 5:43 AM CDT 01/24/2025 5:43 AM CDT Devang Henning MD LAB POCT ORDERABLES - DEVICE Final Result Performing Organization Address [facility] de Phone Number [facility] [address] [facility] [address] [place] [address] * POCT glucose (01/24/2025 1:53 AM CDT) Glucose, POC 120 70 - 199 mg/dL Comment: Interpretive Data Glucose is assumed to be non-fasting. Fasting Glucose reference ranges are: 0 - 150 years: 70 mg/dL - 99 mg/dL Current interpretive data was last revised on 2013. POC Device Number [id number] 3 HERBER MARCANO Blood 01/24/2025 1:53 AM CDT 01/24/2025 1:53 AM CDT Devang Henning MD LAB POCT ORDERABLES - DEVICE Final Result Performing Organization Address [facility] [facility] de Phone Number HERBER BJWCH [address] [facility] [address] [place] [address] * POCT glucose (01/23/2025 9:51 PM CDT) [facility] Glucose, POC 134 70 - 199 mg/dL Comment: Interpretive Data Glucose is assumed to be non-fasting. Fasting Glucose reference ranges are: 0 - 150 years: 70 mg/dL - 99 mg/dL Current interpretive data was last revised on 2013. POC Device Number [id number] 3 HERBER BJWCH Blood 01/23/2025 9:51 PM CDT 01/23/2025 9:51 PM CDT Devang Henning MD LAB POCT ORDERABLES - DEVICE Final Result Performing Organization Address [facility] Phone Number HERBER BJWCH [address] [facility] [address] [place] [address] * US Abdomen Complete (01/23/2025 9:18 PM [...] last revised on 2013. POC Device Number [id number] 3 HERBER JIMENEZWCYDNEY Blood 01/23/2025 4:58 PM CDT 01/23/2025 4:58 PM CDT Devang Henning MD LAB POCT ORDERABLES - DEVICE Final Result Performing Organization Address [facility] Co de Phone Number [facility] [address] [facility] [place] [address] * POCT glucose (01/23/2025 12:15 PM CDT) Glucose, POC 107 70 - 199 mg/dL Comment: Interpretive Data Glucose is assumed to be non-fasting. Fasting Glucose reference ranges are: 0 - 150 years: 70 mg/dL - 99 mg/dL Current interpretive data was last revised on 2013. POC Device Number [id number] 3 HERBER MARCANO Blood 01/23/2025 12:1 5 PM CDT 01/23/2025 12:15 PM CDT Devang Henning MD LAB POCT ORDERABLES - DEVICE Final Result Performing Organization Address [facility] Co de Phone Number [facility] [address] [facility] [place] [address] [place] [address] * (ABNORMAL) eGFR (01/23/2025 6:36 [...] LAB BLOOD ORDERABLES Final Res ult [facility] [address] [facility] Department [place] [address] * (ABNORMAL) Renal function panel (01/23/2025 6:36 AM CDT) Sodium 136 135 - 145 mmol/L Potassium, pl 6.1(H) 3.3 - 4.9 mmol/L [facility] Chloride 97 97 - 110 mmol/L [facility] CO2 27 22 - 32 mmol/L [facility] Anion gap 12 2 - 15 mmol/L [facility] BUN 76(H) 6 - 25 mg/dL [facility] Creatinine 7.40(H) 0.60 - 1.10 mg/dL [facility] Glucose 190 70 - 199 mg/dL [facility] Comment: Interpretive Data Fasting glucose >/= 126 [...] 2022. Calcium 9.2 8.5 - 10.3 mg/dL [facility] Phosphorus, pl 5.0(H) 2.3 - 4.5 mg/dL [facility] Albumin 3.7 3.5 - 5.0 g/dL [facility] Blood 01/23/2025 6:36 AM CDT 01/23/2025 6:41 AM CDT Jeffrey Osorio MD PhD LAB BLOOD ORDERABLES Final Res ult Performing Organization Address [facility]/ZIP Co de Phone Number [facility] [address] [facility] [address] * (ABNORMAL) POCT glucose (01/23/2025 6:17 AM CDT) Glucose, POC 217(H) 70 - 199 mg/dL Comment: Interpretive Data Glucose is assumed to be non-fasting. Fasting Glucose reference ranges are: 0 - 150 years: 70 mg/dL - 99 mg/dL Current interpretive data was last revised on 2013. POC Device Number [id number] [facility] Blood 01/23/2025 6:17 AM CDT 01/23/2025 6:17 AM CDT us Devang Henning MD LAB POCT ORDERABLES - DEVICE Final Result Performing Organization Address [facility]/ZIP Co de Phone Number [facility] [address] [facility] [place] [address] * (ABNORMAL) POCT glucose (01/23/2025 2:08 AM CDT) Glucose, POC 229(H) 70 - 199 mg/dL Comment: Interpretive Data Glucose is assumed to be non-fasting. Fasting Glucose reference ranges are: 0 - 150 years: 70 mg/dL - 99 mg/dL Current interpretive data was last revised on 2013. POC Device Number [id number] 3 HERBER REINACH Blood 01/23/2025 2:08 AM CDT 01/23/2025 2:08 AM CDT Jeffrey Osorio MD PhD LAB POCT ORDERABLES - DEVICE F inal Result Performing Organization Address [facility] Phone Number [facility] [address] [facility] [address] [address] * POCT glucose (01/22/2025 11:38 PM CDT) Glucose, POC 195 70 - 199 mg/dL Comment: Interpretive Data Glucose is assumed to be non-fasting. Fasting Glucose reference ranges are: 0 - 150 years: 70 mg/dL - 99 mg/dL Current interpretive data was last revised on 2013. POC Device Number [id number] 3 HERBER MARCANO Blood 01/22/2025 11:3 8 PM CDT 01/22/2025 11:38 PM CDT us Jeffrey Osorio MD PhD LAB POCT ORDERABLES - DEVICE F inal Result Performing Organization Address [facility] Phone Number [facility] [address] [facility] [place] [address] * POCT glucose (01/22/2025 8:14 PM CDT) Glucose, POC 125 70 - 199 mg/dL Comment: Interpretive Data Glucose is assumed to be non-fasting. Fasting Glucose reference ranges are: 0 - 150 years: 70 mg/dL - 99 mg/dL Current interpretive data was last revised on 2013. POC Device Number [id number] 3 BERLINNER BARBARAWCH Blood 01/22/2025 8:14 PM CDT 01/22/2025 8:14 PM CDT us Jeffrey Osorio MD PhD LAB POCT ORDERABLES - DEVICE F inal Result Performing Organization Address [facility] de Phone Number HERBER JIMENEZCH [address] [facility]. [facility] [address] [place], [place] [id number] * POCT glucose (01/22/2025 5:25 PM CDT) Glucose, POC 112 70 - 199 mg/dL Comment: Interpretive Data Glucose is assumed to be non-fasting. Fasting Glucose reference ranges are: 0 - 150 years: 70 mg/dL - 99 mg/dL Current interpretive data was last revised on 2013. POC Device Number [id number] 4 HERBER MARCANO Blood 01/22/2025 5:25 PM CDT 01/22/2025 5:25 PM CDT us Jeffrey Osorio MD PhD LAB POCT ORDERABLES - DEVICE F inal Result Performing Organization Address [facility] de Phone Number HERBER JIMENEZWCH [address] [facility] [place] [address] * POCT glucose (01/22/2025 2:24 PM CDT) Glucose, POC 129 70 - 199 mg/dL Comment: Interpretive Data Glucose is assumed to be non-fasting. Fasting Glucose reference ranges are: 0 - 150 years: 70 mg/dL - 99 mg/dL Current interpretive data was last revised on 2013. POC Device Number [id number] 4 HERBER MARCANO Blood 01/22/2025 2:24 PM CDT 01/22/2025 2:24 PM CDT us Jeffrey Osorio MD PhD LAB POCT ORDERABLES - DEVICE F inal Result Performing Organization Address [facility] de Phone Number HERBER BJW[facility] [address] [facility] [place] [address] * POCT glucose (01/22/2025 10:26 AM CDT) Glucose, POC 133 70 - 199 mg/dL Comment: Interpretive Data Glucose is assumed to be non-fasting. Fasting Glucose reference ranges are: 0 - 150 years: 70 mg/dL - 99 mg/dL Current interpretive data was last revised on 2013. POC Device Number [id number] 3 HERBER MARCANO Blood 01/22/2025 10:2 6 AM CDT 01/22/2025 10:26 AM CDT Jeffrey Osorio MD PhD LAB POCT ORDERABLES - DEVICE F inal Result Performing Organization Address [facility] de Phone Number [facility] [address] [facility] [address] [place], [place] [id number] * POCT glucose (01/22/2025 6:07 AM CDT) Glucose, POC 109 70 - 199 mg/dL Comment: Interpretive Data Glucose is assumed to be non-fasting. Fasting Glucose reference ranges are: 0 - 150 years: 70 mg/dL - 99 mg/dL Current interpretive data was last revised on 2013. POC Device Number [id number] 4 HERBER MARCANO Blood 01/22/2025 6:07 AM CDT 01/22/2025 6:07 AM CDT Jeffrey Osorio MD PhD LAB POCT ORDERABLES - DEVICE F inal Result Performing Organization Address [facility] de Phone Number [facility] [address] [facility] [address] [place], [place] [address] * POCT glucose (01/22/2025 2:15 AM CDT) Glucose, POC 190 70 - 199 mg/dL Comment: Interpretive Data Glucose is assumed to be non-fasting. Fasting Glucose reference ranges are: 0 - 150 years: 70 mg/dL - 99 mg/dL Current interpretive data was last revised on 2013. POC Device Number [id number] 3 HERBER REINACH Blood 01/22/2025 2:15 AM CDT 01/22/2025 2:15 AM CDT us Jeffrey Osorio MD PhD LAB POCT ORDERABLES - DEVICE F inal Result Performing Organization Address [facility] Phone Number [facility] [address] [facility] [address] [place] [address] * (ABNORMAL) POCT glucose (01/21/2025 10:28 PM CDT) Glucose, POC 340(H) 70 - 199 mg/dL Comment: Interpretive Data Glucose is assumed to be non-fasting. Fasting Glucose reference ranges are: 0 - 150 years: 70 mg/dL - 99 mg/dL Current interpretive data was last revised on 2013. POC Device Number [id number] 4 HERBER MARCANO Blood 01/21/2025 10:2 8 PM CDT 01/21/2025 10:28 PM CDT us Jeffrey Osorio MD PhD LAB POCT ORDERABLES - DEVICE F inal Result Performing Organization Address [facility] Phone Number [facility] [address] [place] [address] * POCT glucose (01/21/2025 5:23 PM CDT) Glucose, POC 195 70 - 199 mg/dL Comment: Interpretive Data Glucose is assumed to be non-fasting. Fasting Glucose reference ranges are: 0 - 150 years: 70 mg/dL - 99 mg/dL Current interpretive data was last revised on 2013. POC Device Number [id number] 4 BERLINNER LATOSHACH Blood 01/21/2025 5:23 PM CDT 01/21/2025 5:23 PM CDT us Jeffrey Osorio MD PhD LAB POCT ORDERABLES - DEVICE F inal Result Performing Organization Address [facility] de Phone Number HERBER JIMENEZCH [address] [facility] [address] [place] [address] * POCT glucose (01/21/2025 12:29 PM CDT) Glucose, POC 194 70 - 199 mg/dL Comment: Interpretive Data Glucose is assumed to be non-fasting. Fasting Glucose reference ranges are: 0 - 150 years: 70 mg/dL - 99 mg/dL Current interpretive data was last revised on 2013. POC Device Number [id number] 3 CERLULY JIMENEZWCYDNEY Blood 01/21/2025 12:2 9 PM CDT 01/21/2025 12:29 PM CDT Jeffrey Osorio MD PhD LAB POCT ORDERABLES - DEVICE F inal Result Performing Organization Address [facility] de Phone Number [facility] [address] [facility]. [facility] [place] [address] * POCT glucose (01/21/2025 8:02 AM CDT) Glucose, POC 160 70 - 199 mg/dL Comment: Interpretive Data Glucose is assumed to be non-fasting. Fasting Glucose reference ranges are: 0 - 150 years: 70 mg/dL - 99 mg/dL Current interpretive data was last revised on 2013. POC Device Number [id number] 3 CERLULY JIMENEZWCH Blood 01/21/2025 8:02 AM CDT 01/21/2025 8:02 AM CDT Jeffrey Osorio MD PhD LAB POCT ORDERABLES - DEVICE F inal Result Performing Organization Address [facility] de Phone Number [facility] [address] [facility]. [facility] [address] [place] [address] * POCT glucose (01/21/2025 6:05 AM CDT) Glucose, POC 184 70 - 199 mg/dL Comment: Interpretive Data Glucose is assumed to be non-fasting. Fasting Glucose reference ranges are: 0 - 150 years: 70 mg/dL - 99 mg/dL Current interpretive data was last revised on 2013. POC Device Number [id number] 3 HERBER MARCANO Blood 01/21/2025 6:05 AM CDT 01/21/2025 6:05 AM CDT us Jeffrey Osorio MD PhD LAB POCT ORDERABLES - DEVICE F inal Result Performing Organization Address [facility] de Phone Number [facility] [address] [facility] [address] [place], [place] [address] * POCT glucose (01/21/2025 1:50 AM CDT) Glucose, POC 78 70 - 199 mg/dL Comment: Interpretive Data Glucose is assumed to be non-fasting. Fasting Glucose reference ranges are: 0 - 150 years: 70 mg/dL - 99 mg/dL Current interpretive data was last revised on 2013. POC Device Number [id number] 3 HERBER MARCANO Blood 01/21/2025 1:50 AM CDT 01/21/2025 1:50 AM CDT us Jeffrey Osorio MD PhD LAB POCT ORDERABLES - DEVICE F inal Result Performing Organization Address [facility] de Phone Number [facility] B[facility]WCH [address] [facility] [address] [place] [address] * POCT glucose (01/20/2025 9:49 PM CDT) Glucose, POC 138 70 - 199 mg/dL Comment: Interpretive Data Glucose is assumed to be non-fasting. Fasting Glucose reference ranges are: 0 - 150 years: 70 mg/dL - 99 mg/dL Current interpretive data was last revised on 2013. POC Device Number [id number] 3 BERLINNER KRYS Blood 01/20/2025 9:49 PM CDT 01/20/2025 9:49 PM CDT us Jeffrye Osorio MD PhD LAB POCT ORDERABLES - DEVICE F inal Result Performing Organization Address [facility] Co de Phone Number HERBER REINACH [address] [facility]. [facility] [place] [place] [address] * POCT glucose (01/20/2025 4:28 PM CDT) Glucose, POC 129 70 - 199 mg/dL Comment: Interpretive Data Glucose is assumed to be non-fasting. Fasting Glucose reference ranges are: 0 - 150 years: 70 mg/dL - 99 mg/dL Current interpretive data was last revised on 2013. POC Device Number [id number] 3 HERBER JIMENEZWCH Blood 01/20/2025 4:28 PM CDT 01/20/2025 4:28 PM CDT us Jeffrey Osorio MD PhD LAB POCT ORDERABLES - DEVICE F inal Result Performing Organization Address [facility] de Phone Number HERBER JIMENEZCH [address] [facility] [place] [address] * POCT glucose (01/20/2025 1:07 PM CDT) Glucose, POC 102 70 - 199 mg/dL Comment: Interpretive Data Glucose is assumed to be non-fasting. Fasting Glucose reference ranges are: 0 - 150 years: 70 mg/dL - 99 mg/dL Current interpretive data was last revised on 2013. POC Device Number [id number] 3 CERNER BARBARAWCH Blood 01/20/2025 1:07 PM CDT 01/20/2025 1:07 PM CDT us Jeffrey Osorio MD PhD LAB POCT ORDERABLES - DEVICE F inal Result Performing Organization Address [facility] Co de Phone Number HERBER JIMENEZCH [address] [facility] [address] [place] [address] * (ABNORMAL) eGFR (01/20/2025 10:23 AM CDT) [...] LAB BLOOD ORDERABLES Final Res ult [facility] [address] [facility]. Department [place] [address] * Differential, auto (01/20/2025 10:23 AM CDT) Neutrophil abs 2.98 1.50 - 6.50 K/cumm Imm gran abs 0.01 0.00 - 0.10 K/cumm [facility] Lymphocyte abs 1.16 0.80 - 3.30 K/cumm CERNER [facility] Monocyte abs 0.34 0.20 - 0.80 K/cumm CERNER [facility] Eosinophil abs 0.12 0.00 - 0.50 K/cumm CERNER [facility] Basophil abs 0.00 0.00 - 0.10 K/cumm CERNER [facility] Neutrophil pct 64.6 % HERBER MARCANO Comment: Interpretive Data Percent [...] on 2017. Monocyte pct 7.4 % HERBER MARCANO Comment: Interpretive Data Percent cell count reference ranges are not reported, since discordance with absolute values may lead to misinterpretation of CBC data. Current Interpretive Data was last revised on 2017. Eosinophil pct 2.6 % HERBER MARCANO Comment: Interpretive Data Percent cell count reference ranges are not reported, since discordance with absolute values may lead to misinterpretation of CBC data. Current Interpretive Data was last revised on 2017. Basophil pct 0.0 % HERBER MARCANO Comment: Interpretive Data Percent cell count reference ranges are not reported, since discordance with absolute values may lead to misinterpretation of CBC data. Current Interpretive Data was last revised on 2017. Blood 01/20/2025 10:2 3 AM CDT 01/20/2025 10:26 AM CDT us Jeffrey Osorio MD PhD LAB BLOOD ORDERABLES Final Res ult [facility] [address] [facility]. Department [place] [address] * (ABNORMAL) CBC with auto differential (01/20/2025 10:23 AM CDT) WBC 4.61 3.80 - 9.90 K/cumm Hgb 8.2(L) 11.9 - 15.5 g/dL [facility] Hct 26.9(L) 35.6 - 45.5 % [facility] Plt 309 150 - 400 K/cumm [facility] MPV 10.8 9.1 - 12.[address] [facility] RBC 2.89(L) 3.90 - 5.20 M/cumm [facility] MCV 93.1 81.3 - 96.[address] [facility] MCH 28.4 27.1 - 33.[address] [facility] MCHC 30.5(L) 32.3 - 35.7 g/dL [facility] RDW CV 15.2(H) 11.1 - 14.9 % [facility] RDW SD 51.6(H) 35.7 - 48.[address] [facility] NRBC abs 0.00 0.00 - 0.01 K/cumm [facility] Blood 01/20/2025 10:2 3 AM CDT 01/20/2025 10:26 AM CDT us Jeffrey Osorio MD PhD LAB BLOOD ORDERABLES Final Res ult [facility] [address] [facility]. Department [place] [address] * (ABNORMAL) Renal function panel (01/20/2025 10:23 AM CDT) Sodium 137 135 - 145 mmol/L Potassium, pl 5.0(H) 3.3 - 4.9 mmol/L [facility] Chloride 100 97 - 110 mmol/L [facility] CO2 28 22 - 32 mmol/L [facility] Anion gap 9 2 - 15 mmol/L [facility] BUN 42(H) 6 - 25 mg/dL [facility] Creatinine 4.95(H) 0.60 - 1.10 mg/dL [facility] Glucose 110 70 - 199 mg/dL [facility] Comment: Interpretive Data Fasting glucose >/= 126 [...] Albumin 3.6 3.5 - 5.0 g/dL C[facility]ER [facility] Blood 01/20/2025 10:2 3 AM CDT 01/20/2025 10:26 AM CDT us Jeffrey Osorio MD PhD LAB BLOOD ORDERABLES Final Res ult Performing Organization Address [facility] de Phone Number [facility] [address] [facility] [employer] [place], [place] [address] * POCT glucose (01/20/2025 9:51 AM CDT) Glucose, POC 111 70 - 199 mg/dL Comment: Interpretive Data Glucose is assumed to be non-fasting. Fasting Glucose reference ranges are: 0 - 150 years: 70 mg/dL - 99 mg/dL Current interpretive data was last revised on 2013. POC Device Number [id number] 3 CERNER BJWCH Blood 01/20/2025 9:51 AM CDT 01/20/2025 9:51 AM CDT us Jeffrey Osorio MD PhD LAB POCT ORDERABLES - DEVICE F inal Result Performing Organization Address [facility] de Phone Number [facility] [address] [facility] [address] [place] [address] * POCT glucose (01/20/2025 8:45 AM CDT) Glucose, POC 115 70 - 199 mg/dL Comment: Interpretive Data Glucose is assumed to be non-fasting. Fasting Glucose reference ranges are: 0 - 150 years: 70 mg/dL - 99 mg/dL Current interpretive data was last revised on 2013. POC Device Number [id number] 3 HERBER MARCANO Blood 01/20/2025 8:45 AM CDT 01/20/2025 8:45 AM CDT us Jeffrey Osorio MD PhD LAB POCT ORDERABLES - DEVICE F inal Result Performing Organization Address [facility] de Phone Number [facility] [address] [facility] [address] [place] [address] * (ABNORMAL) POCT glucose (01/20/2025 8:02 AM CDT) Glucose, POC 67(L) 70 - 199 mg/dL Comment: Interpretive Data Glucose is assumed to be non-fasting. Fasting Glucose reference ranges are: 0 - 150 years: 70 mg/dL - 99 mg/dL Current interpretive data was last revised on 2013. POC Device Number [id number] 3 HERBER MARCANO Blood 01/20/2025 8:02 AM CDT 01/20/2025 8:02 AM CDT us Jeffrey Osorio MD PhD LAB POCT ORDERABLES - DEVICE F inal Result Performing Organization Address [facility] de Phone Number [facility] [address] [facility] [place] [address] * POCT glucose (01/20/2025 5:49 AM CDT) Glucose, POC 122 70 - 199 mg/dL Comment: Interpretive Data Glucose is assumed to be non-fasting. Fasting Glucose reference ranges are: 0 - 150 years: 70 mg/dL - 99 mg/dL Current interpretive data was last revised on 2013. POC Device Number [id number] 3 HERBER MARCANO Blood 01/20/2025 5:49 AM CDT 01/20/2025 5:49 AM CDT us Jeffrey Osorio MD PhD LAB POCT ORDERABLES - DEVICE F inal Result Performing Organization Address [facility] Phone Number [facility] [address] [place] [address] * POCT glucose (01/20/2025 1:57 AM CDT) Glucose, POC 127 70 - 199 mg/dL Comment: Interpretive Data Glucose is assumed to be non-fasting. Fasting Glucose reference ranges are: 0 - 150 years: 70 mg/dL - 99 mg/dL Current interpretive data was last revised on 2013. POC Device Number [id number] 4 HERBER MARCANO Blood 01/20/2025 1:57 AM CDT 01/20/2025 1:57 AM CDT us Jeffrey Osorio MD PhD LAB POCT ORDERABLES - DEVICE F inal Result Performing Organization Address [facility] Phone Number [facility] [address] [place] [address] * (ABNORMAL) POCT glucose (01/19/2025 10:01 PM CDT) Glucose, POC 243(H) 70 - 199 mg/dL Comment: Interpretive Data Glucose is assumed to be non-fasting. Fasting Glucose reference ranges are: 0 - 150 years: 70 mg/dL - 99 mg/dL Current interpretive data was last revised on 2013. POC Device Number [id number] HERBER MARCANO Glucose comment 1 RN/MD Notified HERBER MARCANO Blood 01/19/2025 10:0 1 PM CDT 01/19/2025 10:01 PM CDT us Jeffrey Osorio MD PhD LAB POCT ORDERABLES - DEVICE F inal Result Performing Organization Address [facility] de Phone Number HERBER JIMENEZCH [address] [facility]. [facility] [address] [place], [place] [id number] * POCT glucose (01/19/2025 6:01 PM CDT) Glucose, POC 98 70 - 199 mg/dL Comment: Interpretive Data Glucose is assumed to be non-fasting. Fasting Glucose reference ranges are: 0 - 150 years: 70 mg/dL - 99 mg/dL Current interpretive data was last revised on 2013. POC Device Number [id number] 4 HERBER MARCANO Blood 01/19/2025 6:01 PM CDT 01/19/2025 6:01 PM CDT Jeffrey Osorio MD PhD LAB POCT ORDERABLES - DEVICE F inal Result Performing Organization Address [facility] de Phone Number [facility] [address] [facility]. [facility] [address] [place] [address] * POCT glucose (01/19/2025 4:18 PM CDT) Glucose, POC 75 70 - 199 mg/dL Comment: Interpretive Data Glucose is assumed to be non-fasting. Fasting Glucose reference ranges are: 0 - 150 years: 70 mg/dL - 99 mg/dL Current interpretive data was last revised on 2013. POC Device Number [id number] 4 HERBER MARCANO Blood 01/19/2025 4:18 PM CDT 01/19/2025 4:18 PM CDT us Jeffrey Osorio MD PhD LAB POCT ORDERABLES - DEVICE F inal Result Performing Organization Address [facility] de Phone Number HERBER BJW[facility] [address] [facility] [place] [address] [place] [address] * POCT glucose (01/19/2025 11:51 AM CDT) Glucose, POC 114 70 - 199 mg/dL Comment: Interpretive Data Glucose is assumed to be non-fasting. Fasting Glucose reference ranges are: 0 - 150 years: 70 mg/dL - 99 mg/dL Current interpretive data was last revised on 2013. POC Device Number [id number] 4 HERBER MARCANO Blood 01/19/2025 11:5 1 AM CDT 01/19/2025 11:51 AM CDT Jeffrey Osorio MD PhD LAB POCT ORDERABLES - DEVICE F inal Result Performing Organization Address [facility] Phone Number [facility] [address] [facility] [address] [place], [place] [id number] * POCT glucose (01/19/2025 10:04 AM CDT) Glucose, POC 137 70 - 199 mg/dL Comment: Interpretive Data Glucose is assumed to be non-fasting. Fasting Glucose reference ranges are: 0 - 150 years: 70 mg/dL - 99 mg/dL Current interpretive data was last revised on 2013. POC Device Number [id number] HERBER MARCANO Blood 01/19/2025 10:0 4 AM CDT 01/19/2025 10:04 AM CDT Jeffrey Osorio MD PhD LAB POCT ORDERABLES - DEVICE F inal Result Performing Organization Address [facility] Phone [facility] [address] [facility] [place] [address] * POCT glucose (01/19/2025 6:33 AM CDT) Glucose, POC 71 70 - 199 mg/dL Comment: Interpretive Data Glucose is assumed to be non-fasting. Fasting Glucose reference ranges are: 0 - 150 years: 70 mg/dL - 99 mg/dL Current interpretive data was last revised on 2013. POC Device Number [id number] CERNER BARBARAWCH Blood 01/19/2025 6:33 AM CDT 01/19/2025 6:33 AM CDT us Jeffrey Osorio MD PhD LAB POCT ORDERABLES - DEVICE F inal Result Performing Organization Address [facility] Co de Phone Number HERBER REINACH [address] [facility]. [facility] [place] [address] [place] [address] * POCT glucose (01/19/2025 2:13 AM CDT) Glucose, POC 104 70 - 199 mg/dL Comment: Interpretive Data Glucose is assumed to be non-fasting. Fasting Glucose reference ranges are: 0 - 150 years: 70 mg/dL - 99 mg/dL Current interpretive data was last revised on 2013. POC Device Number [id number] BERLINNER BARBARAWCH Blood 01/19/2025 2:13 AM CDT 01/19/2025 2:13 AM CDT us Jeffrey Osorio MD PhD LAB POCT ORDERABLES - DEVICE F inal Result Performing Organization Address [facility] de Phone Number HERBER JIMENEZCH [address] [facility] [place] [address] * POCT glucose (01/18/2025 9:50 PM CDT) Glucose, POC 97 70 - 199 mg/dL Comment: Interpretive Data Glucose is assumed to be non-fasting. Fasting Glucose reference ranges are: 0 - 150 years: 70 mg/dL - 99 mg/dL Current interpretive data was last revised on 2013. POC Device Number [id number] 3 CERNER BARBARAWCH Blood 01/18/2025 9:50 PM CDT 01/18/2025 9:50 PM CDT us Jeffrey Osorio MD PhD LAB POCT ORDERABLES - DEVICE F inal Result Performing Organization Address [facility] de Phone Number HER[facility] J[facility]ZCH [address] [facility] [address] [place] [address] * POCT glucose (01/18/2025 5:59 PM CDT) Glucose, POC 171 70 - 199 mg/dL Comment: Interpretive Data Glucose is assumed to be non-fasting. Fasting Glucose reference ranges are: 0 - 150 years: 70 mg/dL - 99 mg/dL Current interpretive data was last revised on 2013. POC Device Number [id number] 1 CERNER BARBARAWCH Blood 01/18/2025 5:59 PM CDT 01/18/2025 5:59 PM CDT Jeffrey Osorio MD PhD LAB POCT ORDERABLES - DEVICE F inal Result Performing Organization Address [facility] de Phone Number [facility] [address] [facility] [place] [address] * POCT glucose (01/18/2025 12:15 PM CDT) Glucose, POC 143 70 - 199 mg/dL Comment: Interpretive Data Glucose is assumed to be non-fasting. Fasting Glucose reference ranges are: 0 - 150 years: 70 mg/dL - 99 mg/dL Current interpretive data was last revised on 2013. POC Device Number [id number] 3 HERBER MARCANO Blood 01/18/2025 12:1 5 PM CDT 01/18/2025 12:15 PM CDT Jeffrey Osorio MD PhD LAB POCT ORDERABLES - DEVICE F inal Result Performing Organization Address [facility] Co de Phone Number [facility] [address] [facility] [place] [address] * POCT glucose (01/18/2025 6:08 AM CDT) Glucose, POC 92 70 - 199 mg/dL Comment: Interpretive Data Glucose is assumed to be non-fasting. Fasting Glucose reference ranges are: 0 - 150 years: 70 mg/dL - 99 mg/dL Current interpretive data was last revised on 2013. POC Device Number [id number] 1 HERBER MARCANO Blood 01/18/2025 6:08 AM CDT 01/18/2025 6:08 AM CDT us Jeffrey Osorio MD PhD LAB POCT ORDERABLES - DEVICE F inal Result Performing Organization Address [facility] Phone Number [facility] [address] [facility] [place] [address] * POCT glucose (01/18/2025 2:09 AM CDT) Glucose, POC 107 70 - 199 mg/dL Comment: Interpretive Data Glucose is assumed to be non-fasting. Fasting Glucose reference ranges are: 0 - 150 years: 70 mg/dL - 99 mg/dL Current interpretive data was last revised on 2013. POC Device Number [id number] 4 HERBER MARCANO Blood 01/18/2025 2:09 AM CDT 01/18/2025 2:09 AM CDT us Jeffrey Osorio MD PhD LAB POCT ORDERABLES - DEVICE F inal Result Performing Organization Address [facility] Phone Number [facility] [address] [facility] [place] [address] * POCT glucose (01/17/2025 7:36 PM CDT) Glucose, POC 131 70 - 199 mg/dL Comment: Interpretive Data Glucose is assumed to be non-fasting. Fasting Glucose reference ranges are: 0 - 150 years: 70 mg/dL - 99 mg/dL Current interpretive data was last revised on 2013. POC Device Number [id number] 4 HERBER MARCANO Blood 01/17/2025 7:36 PM CDT 01/17/2025 7:36 PM CDT us Jeffrey Osorio MD PhD LAB POCT ORDERABLES - DEVICE F inal Result Performing Organization Address [facility] de Phone Number [facility] [address] [facility] [address] [address] * POCT glucose (01/17/2025 5:40 PM CDT) Glucose, POC 161 70 - 199 mg/dL Comment: Interpretive Data Glucose is assumed to be non-fasting. Fasting Glucose reference ranges are: 0 - 150 years: 70 mg/dL - 99 mg/dL Current interpretive data was last revised on 2013. POC Device Number [id number] 3 CERNER BARBARAWCH Blood 01/17/2025 5:40 PM CDT 01/17/2025 5:40 PM CDT us Jeffrey Osorio MD PhD LAB POCT ORDERABLES - DEVICE F inal Result Performing Organization Address [facility] de Phone Number [facility] [address] [facility]. [facility] [place] [address] [place] [address] * POCT glucose (01/17/2025 12:02 PM CDT) Glucose, POC 149 70 - 199 mg/dL Comment: Interpretive Data Glucose is assumed to be non-fasting. Fasting Glucose reference ranges are: 0 - 150 years: 70 mg/dL - 99 mg/dL Current interpretive data was last revised on 2013. POC Device Number [id number] HERBER JIMENEZWCH Blood 01/17/2025 12:0 2 PM CDT 01/17/2025 12:02 PM CDT us Jeffrey Osorio MD PhD LAB POCT ORDERABLES - DEVICE F inal Result Performing Organization Address [facility] de Phone Number [facility] [address] [place] [address] * POCT glucose (01/17/2025 8:19 AM CDT) Glucose, POC 198 70 - 199 mg/dL Comment: Interpretive Data Glucose is assumed to be non-fasting. Fasting Glucose reference ranges are: 0 - 150 years: 70 mg/dL - 99 mg/dL Current interpretive data was last revised on 2013. POC Device Number [id number] 1 HERBER MARCANO Blood 01/17/2025 8:19 AM CDT 01/17/2025 8:19 AM CDT Jeffrey Osorio MD PhD LAB POCT ORDERABLES - DEVICE F inal Result Performing Organization Address [facility] de Phone Number [facility] [address] [facility] [place] [place] [address] * POCT glucose (01/17/2025 3:39 AM CDT) Glucose, POC 98 70 - 199 mg/dL Comment: Interpretive Data Glucose is assumed to be non-fasting. Fasting Glucose reference ranges are: 0 - 150 years: 70 mg/dL - 99 mg/dL Current interpretive data was last revised on 2013. POC Device Number [id number] 1 HERBER MARCANO Blood 01/17/2025 3:39 AM CDT 01/17/2025 3:39 AM CDT Jeffrey Osorio MD PhD LAB POCT ORDERABLES - DEVICE F inal Result Performing Organization Address [facility] de Phone Number [facility] [address] [facility] [address] [place], [place] [address] * POCT glucose (01/17/2025 1:03 AM CDT) Glucose, POC 101 70 - 199 mg/dL Comment: Interpretive Data Glucose is assumed to be non-fasting. Fasting Glucose reference ranges are: 0 - 150 years: 70 mg/dL - 99 mg/dL Current interpretive data was last revised on 2013. POC Device Number [id number] CERNER BARBARAWCH Blood 01/17/2025 1:03 AM CDT 01/17/2025 1:03 AM CDT Jeffrey Osorio MD PhD LAB POCT ORDERABLES - DEVICE F inal Result Performing Organization Address [facility] Co de Phone Number HERBER REINACH [address] [facility]. [facility] [place] [address] [place] [address] * POCT glucose (01/16/2025 11:58 PM CDT) Glucose, POC 110 70 - 199 mg/dL Comment: Interpretive Data Glucose is assumed to be non-fasting. Fasting Glucose reference ranges are: 0 - 150 years: 70 mg/dL - 99 mg/dL Current interpretive data was last revised on 2013. POC Device Number [id number] 4 BERLINNER BARBARAWCH Blood 01/16/2025 11:5 8 PM CDT 01/16/2025 11:58 PM CDT Jeffrey Osorio MD PhD LAB POCT ORDERABLES - DEVICE F inal Result Performing Organization Address [facility] de Phone Number HERBER JIMENEZCH [address] [facility]. [facility] [place] [address] [place] [address] * POCT glucose (01/16/2025 11:40 PM CDT) Glucose, POC 98 70 - 199 mg/dL Comment: Interpretive Data Glucose is assumed to be non-fasting. Fasting Glucose reference ranges are: 0 - 150 years: 70 mg/dL - 99 mg/dL Current interpretive data was last revised on 2013. POC Device Number [id number] 4 CERNER BARBARAWCH Blood 01/16/2025 11:4 0 PM CDT 01/16/2025 11:40 PM CDT us Jeffrey Osorio MD PhD LAB POCT ORDERABLES - DEVICE F inal Result Performing Organization Address [facility] Co de Phone Number HERBER JIMENEZ [address] [facility] [address] [place] [address] * POCT glucose (01/16/2025 11:23 PM CDT) Glucose, POC 93 70 - 199 mg/dL Comment: Interpretive Data Glucose is assumed to be non-fasting. Fasting Glucose reference ranges are: 0 - 150 years: 70 mg/dL - 99 mg/dL Current interpretive data was last revised on 2013. POC Device Number [id number] 4 HERBER REINA Blood 01/16/2025 11:2 3 PM CDT 01/16/2025 11:23 PM CDT us Jeffrey Osorio MD PhD LAB POCT ORDERABLES - DEVICE F inal Result Performing Organization Address [facility] Co de Phone Number [facility] [address] [facility]. [facility] [place] [address] [place] [address] * (ABNORMAL) POCT glucose (01/16/2025 11:04 PM CDT) Glucose, POC 57(L) 70 - 199 mg/dL Comment: Interpretive Data Glucose is assumed to be non-fasting. Fasting Glucose reference ranges are: 0 - 150 years: 70 mg/dL - 99 mg/dL Current interpretive data was last revised on 2013. POC Device Number [id number] 4 HERBER REINA Blood 01/16/2025 11:0 4 PM CDT 01/16/2025 11:04 PM CDT us Jeffrey Osorio MD PhD LAB POCT ORDERABLES - DEVICE F inal Result Performing Organization Address [facility]/ZIP Co de Phone Number [facility] [address] [place] [address] * (ABNORMAL) POCT glucose (01/16/2025 10:46 PM CDT) Glucose, POC 58(L) 70 - 199 mg/dL Comment: Interpretive Data Glucose is assumed to be non-fasting. Fasting Glucose reference ranges are: 0 - 150 years: 70 mg/dL - 99 mg/dL Current interpretive data was last revised on 2013. POC Device Number [id number] 4 HERBER MARCANO Blood 01/16/2025 10:4 6 PM CDT 01/16/2025 10:46 PM CDT Jeffrey Osorio MD PhD LAB POCT ORDERABLES - DEVICE F inal Result Performing Organization Address [facility] de Phone Number [facility] [address] [facility] [address] [place], [place] [id number] * POCT glucose (01/16/2025 7:48 PM CDT) Glucose, POC 186 70 - 199 mg/dL Comment: Interpretive Data Glucose is assumed to be non-fasting. Fasting Glucose reference ranges are: 0 - 150 years: 70 mg/dL - 99 mg/dL Current interpretive data was last revised on 2013. POC Device Number [id number] 4 HERBER MARCANO Blood 01/16/2025 7:48 PM CDT 01/16/2025 7:48 PM CDT Jeffrey Osorio MD PhD LAB POCT ORDERABLES - DEVICE F inal Result Performing Organization Address [facility] Phone Number [facility] [address] [facility] [address] [place] [address] * POCT glucose (01/16/2025 4:32 PM CDT) Glucose, POC 134 70 - 199 mg/dL Comment: Interpretive Data Glucose is assumed to be non-fasting. Fasting Glucose reference ranges are: 0 - 150 years: 70 mg/dL - 99 mg/dL Current interpretive data was last revised on 2013. POC Device Number [id number] 4 HERBER JIMENEZWCH Blood 01/16/2025 4:32 PM CDT 01/16/2025 4:32 PM CDT us Jeffrey Osorio MD PhD LAB POCT ORDERABLES - DEVICE F inal Result Performing Organization Address [facility] Co de Phone Number [facility] [address] [facility]. [facility] [place] [address] [place] [address] * POCT glucose (01/16/2025 12:40 PM CDT) Glucose, POC 195 70 - 199 mg/dL Comment: Interpretive Data Glucose is assumed to be non-fasting. Fasting Glucose reference ranges are: 0 - 150 years: 70 mg/dL - 99 mg/dL Current interpretive data was last revised on 2013. POC Device Number [id number] 4 HERBER JIMENEZWVubiquity Blood 01/16/2025 12:4 0 PM CDT 01/16/2025 12:40 PM CDT us Jeffrey Osorio MD PhD LAB POCT ORDERABLES - DEVICE F inal Result Performing Organization Address [facility] de Phone Number HERBER JIMENEZCH [address] [facility]. [facility] [place] [address] [place] [address] * (ABNORMAL) POCT glucose (01/16/2025 9:13 AM CDT) Glucose, POC 210(H) 70 - 199 mg/dL Comment: Interpretive Data Glucose is assumed to be non-fasting. Fasting Glucose reference ranges are: 0 - 150 years: 70 mg/dL - 99 mg/dL Current interpretive data was last revised on 2013. POC Device Number [id number] 4 HERBER JIMENEZWCH Blood 01/16/2025 9:13 AM CDT 01/16/2025 9:13 AM CDT us Jeffrey Osorio MD PhD LAB POCT ORDERABLES - DEVICE F inal Result Performing Organization Address [facility] Co de Phone Number [facility] [address] [facility]. [facility] [place] [address] [place] [address] * (ABNORMAL) eGFR (01/16/2025 6:49 AM CDT) Pathologist [facility] eGFR 7(L) >=60 mL/min/1. 73 m2 [...] MD LAB BLOOD ORDERABLES Marli lipscomb Result [facility] [address] [facility]. Department [place] [address] * (ABNORMAL) CBC without differential (01/16/2025 6:49 AM CDT) Pathologist [facility] WBC 5.02 3.80 - 9.90 K/cumm Hgb 10.1(L) 11.9 - 15.5 g/dL [facility] Hct 32.7(L) 35.6 - 45.5 % [facility] Plt 396 150 - 400 K/cumm [facility] MPV 10.3 9.1 - 12.[address] [facility] RBC 3.61(L) 3.90 - 5.20 M/cumm [facility] MCV 90.6 81.3 - 96.[address] [facility] MCH 28.0 27.1 - 33.[address] [facility] MCHC 30.9(L) 32.3 - 35.7 g/dL [facility] RDW CV 15.4(H) 11.1 - 14.9 % [facility] RDW SD 50.6(H) 35.7 - 48.[address] [facility] NRBC abs 0.00 0.00 - 0.01 K/cumm [facility] Blood 01/16/2025 6:49 AM CDT 01/16/2025 7:01 AM CDT Parag Xie MD LAB BLOOD ORDERABLES Marli lipscomb Result [facility] [address] [facility]. Department [place] [address] * (ABNORMAL) Basic metabolic panel (01/16/2025 6:49 AM CDT) Pathologist [facility] Sodium 137 135 - 145 mmol/L Potassium, pl 4.5 3.3 - 4.9 mmol/L [facility] Chloride 97 97 - 110 mmol/L [facility] CO2 26 22 - 32 mmol/L [facility] Anion gap 14 2 - 15 mmol/L [facility] BUN 68(H) 6 - 25 mg/dL [facility] Creatinine 7.90(H) 0.60 - 1.10 mg/dL [facility] Glucose 126 70 - 199 mg/dL [facility] Comment: Interpretive Data Fasting glucose >/= 126 [...] ORDERABLES Marli l Result Performing Organization Address [facility] de Phone Number [facility] [address] [facility] [place] [place] [address] * POCT glucose (01/16/2025 3:16 AM CDT) Glucose, POC 112 70 - 199 mg/dL Comment: Interpretive Data Glucose is assumed to be non-fasting. Fasting Glucose reference ranges are: 0 - 150 years: 70 mg/dL - 99 mg/dL Current interpretive data was last revised on 2013. POC Device Number [id number] 1 HERBER MARCANO Blood 01/16/2025 3:16 AM CDT 01/16/2025 3:16 AM CDT Parag Xie MD LAB POCT ORDERABLES - DEV ICE Final Result Performing Organization Address [facility] de Phone Number [facility] [address] [facility] [place] [place] [address] * POCT glucose (01/15/2025 11:41 PM CDT) Glucose, POC 72 70 - 199 mg/dL Comment: Interpretive Data Glucose is assumed to be non-fasting. Fasting Glucose reference ranges are: 0 - 150 years: 70 mg/dL - 99 mg/dL Current interpretive data was last revised on 2013. POC Device Number [id number] 1 HERBER MARCANO Blood 01/15/2025 11:4 1 PM CDT 01/15/2025 11:41 PM CDT Parag Xie MD LAB POCT ORDERABLES - DEV ICE Final Result Performing Organization Address [facility] de Phone Number HERBER JIMENEZCH [address] [facility]. [facility] [place] [address] [place] [address] * POCT glucose (01/15/2025 8:45 PM CDT) Glucose, POC 85 70 - 199 mg/dL Comment: Interpretive Data Glucose is assumed to be non-fasting. Fasting Glucose reference ranges are: 0 - 150 years: 70 mg/dL - 99 mg/dL Current interpretive data was last revised on 2013. POC Device Number [id number] HERBER MARCANO Blood 01/15/2025 8:45 PM CDT 01/15/2025 8:45 PM CDT Parag Xie MD LAB POCT ORDERABLES - DEV ICE Final Result Performing Organization Address [facility] de Phone Number [facility] [address] [facility]. [facility] [place] [address] [place] [address] * POCT glucose (01/15/2025 7:01 PM CDT) Glucose, POC 121 70 - 199 mg/dL Comment: Interpretive Data Glucose is assumed to be non-fasting. Fasting Glucose reference ranges are: 0 - 150 years: 70 mg/dL - 99 mg/dL Current interpretive data was last revised on 2013. POC Device Number [id number] 1 HERBER MARCANO Blood 01/15/2025 7:01 PM CDT 01/15/2025 7:01 PM CDT Parag Xie MD LAB POCT ORDERABLES - DEV ICE Final Result Performing Organization Address [facility] de Phone Number [facility] [address] [facility]. [facility] [place] [address] [place] [address] * POCT hCG, urine (01/15/2025 4:15 PM CDT) HCG, ur, POC Negative Negative Lot Number [id number] QC Backgroud Clear Acceptable QC Control Line Acceptable Urine 01/15/2025 4:15 PM CDT us Odilon Correa MD PhD POINT OF CARE [...] tendency for uric acid stone formation. Source: [facility] Current Interpretive Data was last revised on [...] GENERAL ORDERABLES Final Result Performing Organization Address [facility] de Phone Number HERBER MARCANO [address] [facility] [employer] [place], [place] [id number] * (ABNORMAL) Urinalysis, microscopic only (01/15/2025 4:12 [...] ORDERABLE S Final Result Performing Organization Address [facility] de Phone Number HERBER REINACH [address] [facility] [address] [place], [place] [id number] * (ABNORMAL) eGFR (01/15/2025 3:18 PM CDT) Pathologist [facility] eGFR 7(L) >=60 mL/min/1. 73 m2 [...] FRANCE LAB BLOOD ORDERABLES Final Result HERBER MARCANO [address] [facility]. Department [place] [address] * Differential, auto (01/15/2025 3:18 PM CDT) Pathologist [facility] Neutrophil abs 2.90 1.50 - 6.50 K/cumm Imm gran abs 0.02 0.00 - 0.10 K/cumm [facility] Lymphocyte abs 1.39 0.80 - 3.30 K/cumm [facility] Monocyte abs 0.37 0.20 - 0.80 K/cumm [facility] Eosinophil abs 0.07 0.00 - 0.50 K/cumm [facility] Basophil abs 0.01 0.00 - 0.10 K/cumm [facility] Neutrophil pct 60.9 % [facility] Comment: Interpretive Data Percent cell count reference [...] PM CDT Ashlee FRANCE LAB BLOOD ORDERABLES Final Result [facility] [address] [facility]. Department [place] [address] * (ABNORMAL) CBC with auto differential (01/15/2025 3:18 PM CDT) WBC 4.76 3.80 - 9.90 K/cumm Hgb 9.5(L) 11.9 - 15.5 g/dL [facility] MARCANO Hct 30.9(L) 35.6 - 45.5 % [facility] MARC[facility] Plt 372 150 - 400 K/cumm HERBER [facility] MPV 10.4 9.1 - 12.[address] [facility] RBC 3.40(L) 3.90 - 5.20 M/cumm [facility] MCV 90.9 81.3 - 96.4 fL [facility] MCH 27.9 27.1 - 33.3 pg [facility] MCHC 30.7(L) 32.3 - 35.7 g/dL [facility] RDW CV 15.5(H) 11.1 - 14.9 % [facility] RDW SD 50.7(H) 35.7 - 48.1 fL [facility] NRBC abs 0.00 0.00 - 0.01 K/cumm [facility] Blood Venous blood specimen / Unknown 01/15/2025 3:18 PM CDT 01/15/2025 3:21 PM CDT us Odilon Corrae MD PhD LAB BLOOD ORDERABLE S Final Result [facility] [address] [facility]. Department [place] [address] * (ABNORMAL) Comprehensive metabolic panel (01/15/2025 3:18 PM CDT) Sodium 139 135 - 145 mmol/L Potassium, pl 4.8 3.3 - 4.9 mmol/L [facility] Chloride 98 97 - 110 mmol/L [facility] CO2 23 22 - 32 mmol/L [facility] Anion gap 18(H) 2 - 15 mmol/L [facility] BUN 67(H) 6 - 25 mg/dL [facility] Creatinine 7.31(H) 0.60 - 1.10 mg/dL [facility] Glucose 176 70 - 199 mg/dL [facility] Comment: Interpretive Data Fasting glucose >/= 126 [...] ORDERABLE S Final Result Performing Organization Address [facility] de Phone Number [facility] Shareable [facility] [address] [place] [address] * (ABNORMAL) POCT glucose (01/12/2025 10:49 AM CDT) [facility] Signature Glucose, POC 270(H) 70 - 199 mg/dL Comment: Interpretive Data Glucose is assumed to be non-fasting. Fasting Glucose reference ranges are: 0 - 150 years: 70 mg/dL - 99 mg/dL Current interpretive data was last revised on 2013. POC Device Number [id number] 4 CERNER BJWCH Blood 01/12/2025 10:4 9 AM CDT 01/12/2025 10:49 AM CDT Parag Xie MD LAB POCT ORDERABLES - DEV ICE Final Result Performing Organization Address [facility] Co de Phone Number [facility] [address] [place] [address] * (ABNORMAL) POCT glucose (01/12/2025 8:11 AM CDT) Glucose, POC 343(H) 70 - 199 mg/dL Comment: Interpretive Data Glucose is assumed to be non-fasting. Fasting Glucose reference ranges are: 0 - 150 years: 70 mg/dL - 99 mg/dL Current interpretive data was last revised on 2013. POC Device Number [id number] 1 HERBER MARCANO Blood 01/12/2025 8:11 AM CDT 01/12/2025 8:11 AM CDT Parag Xie MD LAB POCT ORDERABLES - DEV ICE Final Result Performing Organization Address [facility] Co de Phone Number [facility] [address] [place] [employer] [facility] [place] [address] * POCT glucose (01/11/2025 11:44 PM CDT) Glucose, POC 129 70 - 199 mg/dL Comment: Interpretive Data Glucose is assumed to be non-fasting. Fasting Glucose reference ranges are: 0 - 150 years: 70 mg/dL - 99 mg/dL Current interpretive data was last revised on 2013. POC Device Number [id number] 1 HERBER MARCANO Blood 01/11/2025 11:4 4 PM CDT 01/11/2025 11:44 PM CDT Parag Xie MD LAB POCT ORDERABLES - DEV ICE Final Result Performing Organization Address [facility] Co de Phone Number [facility] [address] [employer]. [facility] [place] [address] * POCT glucose (01/11/2025 10:23 PM CDT) Glucose, POC 170 70 - 199 mg/dL Comment: Interpretive Data Glucose is assumed to be non-fasting. Fasting Glucose reference ranges are: 0 - 150 years: 70 mg/dL - 99 mg/dL Current interpretive data was last revised on 2013. POC Device Number [id number] 1 HERBER MARCANO Blood 01/11/2025 10:2 3 PM CDT 01/11/2025 10:23 PM CDT Parag Xie MD LAB POCT ORDERABLES - DEV ICE Final Result Performing Organization Address [facility] Phone Number [facility] [address] [facility] [place] [address] * (ABNORMAL) POCT glucose (01/11/2025 8:33 PM CDT) Glucose, POC 225(H) 70 - 199 mg/dL Comment: Interpretive Data Glucose is assumed to be non-fasting. Fasting Glucose reference ranges are: 0 - 150 years: 70 mg/dL - 99 mg/dL Current interpretive data was last revised on 2013. POC Device Number [id number] 4 HERBER MARCANO Blood 01/11/2025 8:33 PM CDT 01/11/2025 8:33 PM CDT Parag Xie MD LAB POCT ORDERABLES - DEV ICE Final Result Performing Organization Address [facility] Phone Number [facility] [address] [facility] [place] [address] * (ABNORMAL) POCT glucose (01/11/2025 7:01 PM CDT) Glucose, POC 203(H) 70 - 199 mg/dL Comment: Interpretive Data Glucose is assumed to be non-fasting. Fasting Glucose reference ranges are: 0 - 150 years: 70 mg/dL - 99 mg/dL Current interpretive data was last revised on 2013. POC Device Number [id number] 4 CERNER BARBARAWCH Blood 01/11/2025 7:01 PM CDT 01/11/2025 7:01 PM CDT Parag Xie MD LAB POCT ORDERABLES - DEV ICE Final Result Performing Organization Address [facility] de Phone Number [facility] [address] [facility]. [facility] [place] [address] * POCT glucose (01/11/2025 5:03 PM CDT) Glucose, POC 142 70 - 199 mg/dL Comment: Interpretive Data Glucose is assumed to be non-fasting. Fasting Glucose reference ranges are: 0 - 150 years: 70 mg/dL - 99 mg/dL Current interpretive data was last revised on 2013. POC Device Number [id number] 4 HERBER MARCANO Blood 01/11/2025 5:03 PM CDT 01/11/2025 5:03 PM CDT Parag Xie MD LAB POCT ORDERABLES - DEV ICE Final Result Performing Organization Address [facility] de Phone Number [facility] [address] [facility]. [facility] [place] [address] * POCT glucose (01/11/2025 12:02 PM CDT) Glucose, POC 87 70 - 199 mg/dL Comment: Interpretive Data Glucose is assumed to be non-fasting. Fasting Glucose reference ranges are: 0 - 150 years: 70 mg/dL - 99 mg/dL Current interpretive data was last revised on 2013. POC Device Number [id number] 9 HERBER MARCANO Blood 01/11/2025 12:0 2 PM CDT 01/11/2025 12:02 PM CDT Parag Xie MD LAB POCT ORDERABLES - DEV ICE Final Result Performing Organization Address [facility] de Phone Number [facility] [address] [facility]. [facility] [place] [address] * POCT glucose (01/11/2025 9:14 AM CDT) Glucose, POC 194 70 - 199 mg/dL Comment: Interpretive Data Glucose is assumed to be non-fasting. Fasting Glucose reference ranges are: 0 - 150 years: 70 mg/dL - 99 mg/dL Current interpretive data was last revised on 2013. POC Device Number [id number] 9 HERBER REINACH Blood 01/11/2025 9:14 AM CDT 01/11/2025 9:14 AM CDT us Parag Xie MD LAB POCT ORDERABLES - DEV ICE Final Result [facility] JIMENEZWCH [address] [facility]. Department [place] [address] * (ABNORMAL) eGFR (01/11/2025 8:27 AM CDT) [...] 8:27 AM CDT 01/11/2025 8:35 AM CDT us Lisbet Franz MD LAB BLOOD ORDERABLES Final Re sult Performing Organization Address [facility] Co de Phone Number [facility] [address] [place] [employer]. [facility] [address] [place], [place] [address] * (ABNORMAL) Phosphorus (01/11/2025 8:27 AM CDT) Phosphorus, pl 6.9(H) 2.3 - 4.5 mg/dL Blood 01/11/2025 8:27 AM CDT 01/11/2025 8:35 AM CDT Narrative HERBER MARCANO - 01/11/2025 8:53 AM CDT Please draw with dialysis Lisbet Franz MD LAB BLOOD ORDERABLES Final Re sult Performing Organization Address [facility] Co de Phone Number HERBER JIM[facility]ZCH [address] [employer] Department [employer] [place], [place] [address] * Magnesium (01/11/2025 8:27 AM CDT) Magnesium [...] Re sult Performing Organization Address [facility] Co de Phone Number HERBER JIMENEZWCH [address] [employer]. [facility] [address] [place], [place] [address] * (ABNORMAL) Basic metabolic panel (01/11/2025 8:27 AM CDT) Sodium 139 135 - 145 mmol/L Potassium, pl 4.1 3.3 - 4.9 mmol/L [facility] Chloride 103 97 - 110 mmol/L [facility] CO2 23 22 - 32 mmol/L [facility] Anion gap 13 2 - 15 mmol/L [facility] BUN 45(H) 6 - 25 mg/dL [facility] Creatinine 6.97(H) 0.60 - 1.10 mg/dL [facility] Glucose 237(H) 70 - 199 mg/dL [facility] Comment: Interpretive Data Fasting glucose >/= 126 [...] 2022. Calcium 7.1(L) 8.5 - 10.3 mg/dL [facility] Blood 01/11/2025 8:27 AM CDT 01/11/2025 8:35 AM CDT Narrative BERLINLULY JIMENEZCH - 01/11/2025 8:53 AM CDT Please draw with dialysis us Lisbet Franz MD LAB BLOOD ORDERABLES Final Re sult [facility] [address] [facility]. Department [place] [address] * (ABNORMAL) POCT glucose (01/11/2025 7:52 AM CDT) [facility] Signature Glucose, POC 249(H) 70 - 199 mg/dL Comment: Interpretive Data Glucose is assumed to be non-fasting. Fasting Glucose reference ranges are: 0 - 150 years: 70 mg/dL - 99 mg/dL Current interpretive data was last revised on 2013. POC Device Number [id number] 9 [facility]ULY JIM[facility]ZM[facility] Blood 01/11/2025 7:52 AM CDT 01/11/2025 7:52 AM CDT Parag Xie MD LAB POCT ORDERABLES - DEV ICE Final Result Performing Organization Address [facility] de Phone Number HERBER JIMENEZCH [address] [facility] [place] [address] * (ABNORMAL) POCT glucose (01/11/2025 4:35 AM CDT) Glucose, POC 267(H) 70 - 199 mg/dL Comment: Interpretive Data Glucose is assumed to be non-fasting. Fasting Glucose reference ranges are: 0 - 150 years: 70 mg/dL - 99 mg/dL Current interpretive data was last revised on 2013. POC Device Number [id number] HERBER JIMENEZWCH Glucose comment 1 RN/MD Notified HERBER MARCANO Blood 01/11/2025 4:35 AM CDT 01/11/2025 4:35 AM CDT Parag Xie MD LAB POCT ORDERABLES - DEV ICE Final Result Performing Organization Address [facility] de Phone Number [facility]ZCH [address] [place] [address] * (ABNORMAL) POCT glucose (01/10/2025 11:36 PM CDT) Glucose, POC 220(H) 70 - 199 mg/dL Comment: Interpretive Data Glucose is assumed to be non-fasting. Fasting Glucose reference ranges are: 0 - 150 years: 70 mg/dL - 99 mg/dL Current interpretive data was last revised on 2013. POC Device Number [id number] BERLINNER BARBARAWCH Glucose comment 1 RN/MD Notified HERBER MARCANO Blood 01/10/2025 11:3 6 PM CDT 01/10/2025 11:36 PM CDT Parag Xie MD LAB POCT ORDERABLES - DEV ICE Final Result Performing Organization Address [facility] de Phone Number HERBER REINACH [address] [address] [facility]. [facility] [place] [address] * POCT glucose (01/10/2025 9:11 PM CDT) Glucose, POC 142 70 - 199 mg/dL Comment: Interpretive Data Glucose is assumed to be non-fasting. Fasting Glucose reference ranges are: 0 - 150 years: 70 mg/dL - 99 mg/dL Current interpretive data was last revised on 2013. POC Device Number [id number] 9 HERBER MARCANO Blood 01/10/2025 9:11 PM CDT 01/10/2025 9:11 PM CDT Parag Xie MD LAB POCT ORDERABLES - DEV ICE Final Result Performing Organization Address [facility] de Phone Number HERBER JIMENEZWCH [address] [facility]. [facility] [place] [address] * POCT glucose (01/10/2025 7:44 PM CDT) Glucose, POC 159 70 - 199 mg/dL Comment: Interpretive Data Glucose is assumed to be non-fasting. Fasting Glucose reference ranges are: 0 - 150 years: 70 mg/dL - 99 mg/dL Current interpretive data was last revised on 2013. POC Device Number [id number] 9 HERBER MARCANO Blood 01/10/2025 7:44 PM CDT 01/10/2025 7:44 PM CDT Parag Xie MD LAB POCT ORDERABLES - DEV ICE Final Result Performing Organization Address [facility] de Phone Number HERBER JIMENEZWCH [address] [facility]. [facility] [place] [address] * (ABNORMAL) POCT glucose (01/10/2025 5:29 PM CDT) Glucose, POC 230(H) 70 - 199 mg/dL Comment: Interpretive Data Glucose is assumed to be non-fasting. Fasting Glucose reference ranges are: 0 - 150 years: 70 mg/dL - 99 mg/dL Current interpretive data was last revised on 2013. POC Device Number [id number] 9 HERBER MARCANO Blood 01/10/2025 5:29 PM CDT 01/10/2025 5:29 PM CDT Parag Xie MD LAB POCT ORDERABLES - DEV ICE Final Result Performing Organization Address [facility] de Phone Number [facility] [address] [facility] [address] [place], [place] [address] * (ABNORMAL) POCT glucose (01/10/2025 1:56 PM CDT) Glucose, POC 233(H) 70 - 199 mg/dL Comment: Interpretive Data Glucose is assumed to be non-fasting. Fasting Glucose reference ranges are: 0 - 150 years: 70 mg/dL - 99 mg/dL Current interpretive data was last revised on 2013. POC Device Number [id number] 9 HERBER MARCANO Blood 01/10/2025 1:56 PM CDT 01/10/2025 1:56 PM CDT Parag Xie MD LAB POCT ORDERABLES - DEV ICE Final Result Performing Organization Address [facility] de Phone Number [facility] [address] [facility] [place] [address] * (ABNORMAL) POCT glucose (01/10/2025 12:01 PM CDT) Glucose, POC 331(H) 70 - 199 mg/dL Comment: Interpretive Data Glucose is assumed to be non-fasting. Fasting Glucose reference ranges are: 0 - 150 years: 70 mg/dL - 99 mg/dL Current interpretive data was last revised on 2013. POC Device Number [id number] 4 CERNER BARBARAWCH Blood 01/10/2025 12:0 1 PM CDT 01/10/2025 12:01 PM CDT us Parag Xie MD LAB POCT ORDERABLES - DEV ICE Final Result Performing Organization Address [facility] Phone Number HERBER REINACH [address] [facility] [place] [address] * (ABNORMAL) POCT glucose (01/10/2025 10:22 AM CDT) Glucose, POC 335(H) 70 - 199 mg/dL Comment: Interpretive Data Glucose is assumed to be non-fasting. Fasting Glucose reference ranges are: 0 - 150 years: 70 mg/dL - 99 mg/dL Current interpretive data was last revised on 2013. POC Device Number [id number] HERBER MARCANO Glucose comment 1 RN/MD Notified HERBER MARCANO Blood 01/10/2025 10:2 2 AM CDT 01/10/2025 10:22 AM CDT us Parag Xie MD LAB POCT ORDERABLES - DEV ICE Final Result Performing Organization Address [facility] Phone Number HERBER JIMENEZWCH [address] [facility] [place] [address] * POCT glucose (01/10/2025 7:57 AM CDT) Glucose, POC 185 70 - 199 mg/dL Comment: Interpretive Data Glucose is assumed to be non-fasting. Fasting Glucose reference ranges are: 0 - 150 years: 70 mg/dL - 99 mg/dL Current interpretive data was last revised on 2013. POC Device Number [id number] 4 HERBER MARCANO Blood 01/10/2025 7:57 AM CDT 01/10/2025 7:57 AM CDT us Parag Xie MD LAB POCT ORDERABLES - DEV ICE Final Result Performing Organization Address [facility]/State/ZIP Co de Phone Number HERBER BJWCH [address] [employer] [place] [address] * POCT glucose (01/10/2025 4:07 AM CDT) Glucose, POC 114 70 - 199 mg/dL Comment: Interpretive Data Glucose is assumed to be non-fasting. Fasting Glucose reference ranges are: 0 - 150 years: 70 mg/dL - 99 mg/dL Current interpretive data was last revised on 2013. POC Device Number [id number] 4 HERBER BJWCH Blood 01/10/2025 4:07 AM CDT 01/10/2025 4:07 AM CDT Parag Xie MD LAB POCT ORDERABLES - DEV ICE Final Result HERBER [facility] [address] [employer] Department [place] [address] * (ABNORMAL) eGFR (01/10/2025 4:02 AM CDT) Pathologist [facility] eGFR 11(L) >=60 mL/min/1. 73 m2 Comment: [...] LAB BLOOD ORDERABLES Marli lipscomb Result HERBER MARCANO [address] [facility] [employer] [place], [place] [address] * (ABNORMAL) CBC without differential (01/10/2025 4:02 AM CDT) WBC 4.58 3.80 - 9.90 K/cumm Hgb 9.0(L) 11.9 - 15.5 g/dL [facility] Hct 28.2(L) 35.6 - 45.5 % [facility] Plt 274 150 - 400 K/cumm [facility] MPV 10.6 9.1 - 12.3 fL [facility] RBC 3.18(L) 3.90 - 5.20 M/cumm [facility] MCV 88.7 81.3 - 96.4 fL [facility] W MCH 28.3 27.1 - 33.3 pg [facility] MCHC 31.9(L) 32.3 - 35.7 g/dL [facility] BJWCH RDW CV 15.2(H) 11.1 - 14.9 % [facility] RDW SD 48.3(H) 35.7 - 48.1 fL [facility] NRBC abs 0.00 0.00 - 0.01 K/cumm [facility] BJW Blood 01/10/2025 4:02 AM CDT 01/10/2025 4:20 AM CDT Parag Xie MD LAB BLOOD ORDERABLES Marli lipscomb Result HERBER REINACH [address] [employer] [place] [address] * (ABNORMAL) Basic metabolic panel (01/10/2025 4:02 AM CDT) Pathologist [facility] Sodium 136 135 - 145 mmol/L Potassium, pl 3.5 3.3 - 4.9 mmol/L [facility] Chloride 98 97 - 110 mmol/L [facility] CO2 24 22 - 32 mmol/L [facility] Anion gap 14 2 - 15 mmol/L [facility] BUN 22 6 - 25 mg/dL [facility] Creatinine 5.00(H) 0.60 - 1.10 mg/dL [facility] Glucose 109 70 - 199 mg/dL [facility] Comment: Interpretive Data Fasting glucose >/= 126 [...] Calcium 7.7(L) 8.5 - 10.3 mg/dL [facility] Blood 01/10/2025 4:02 AM CDT 01/10/2025 4:20 AM CDT Parag Xie MD LAB BLOOD ORDERABLES Marli l Result [facility]ULY JIM[facility]ZM[facility] [address] [facility] Department [place] [address] * POCT glucose (01/09/2025 11:05 PM CDT) [facility] Signature Glucose, POC 159 70 - 199 mg/dL Comment: Interpretive Data Glucose is assumed to be non-fasting. Fasting Glucose reference ranges are: 0 - 150 years: 70 mg/dL - 99 mg/dL Current interpretive data was last revised on 2013. POC Device Number [id number] 1 CERLULY JIMENEZW Blood 01/09/2025 11:0 5 PM CDT 01/09/2025 11:05 PM CDT Parag Xie MD LAB POCT ORDERABLES - DEV ICE Final Result Performing Organization Address [facility] de Phone Number HERBER REINACH [address] [facility]. [facility] [place] [address] * (ABNORMAL) POCT glucose (01/09/2025 10:22 PM CDT) Glucose, POC 60(L) 70 - 199 mg/dL Comment: Interpretive Data Glucose is assumed to be non-fasting. Fasting Glucose reference ranges are: 0 - 150 years: 70 mg/dL - 99 mg/dL Current interpretive data was last revised on 2013. POC Device Number [id number] 1 HERBER MARCANO Blood 01/09/2025 10:2 2 PM CDT 01/09/2025 10:22 PM CDT Parag Xie MD LAB POCT ORDERABLES - DEV ICE Final Result Performing Organization Address [facility] de Phone Number HERBER JIMENEZWCH [address] [facility]. [facility] [place] [address] * POCT glucose (01/09/2025 8:46 PM CDT) Glucose, POC 80 70 - 199 mg/dL Comment: Interpretive Data Glucose is assumed to be non-fasting. Fasting Glucose reference ranges are: 0 - 150 years: 70 mg/dL - 99 mg/dL Current interpretive data was last revised on 2013. POC Device Number [id number] 1 HERBER MARCANO Blood 01/09/2025 8:46 PM CDT 01/09/2025 8:46 PM CDT Parag Xie MD LAB POCT ORDERABLES - DEV ICE Final Result Performing Organization Address [facility] Co de Phone Number HERBER BJWCH [address] [facility]. [facility] [place] [address] * POCT glucose (01/09/2025 6:06 PM CDT) Glucose, POC 193 70 - 199 mg/dL Comment: Interpretive Data Glucose is assumed to be non-fasting. Fasting Glucose reference ranges are: 0 - 150 years: 70 mg/dL - 99 mg/dL Current interpretive data was last revised on 2013. POC Device Number [id number] 4 HERBER MARCANO Blood 01/09/2025 6:06 PM CDT 01/09/2025 6:06 PM CDT Parag Xie MD LAB POCT ORDERABLES - DEV ICE Final Result Performing Organization Address [facility] de Phone Number [facility] [address] [facility] [place] [address] * (ABNORMAL) POCT glucose (01/09/2025 5:41 PM CDT) Glucose, POC 64(L) 70 - 199 mg/dL Comment: Interpretive Data Glucose is assumed to be non-fasting. Fasting Glucose reference ranges are: 0 - 150 years: 70 mg/dL - 99 mg/dL Current interpretive data was last revised on 2013. POC Device Number [id number] 4 HERBER MARCANO Blood 01/09/2025 5:41 PM CDT 01/09/2025 5:41 PM CDT Parag Xie MD LAB POCT ORDERABLES - DEV ICE Final Result Performing Organization Address [facility] de Phone Number [facility] BJWCH [address] [facility]. [facility] [place] [address] * POCT glucose (01/09/2025 5:05 PM CDT) Glucose, POC 100 70 - 199 mg/dL Comment: Interpretive Data Glucose is assumed to be non-fasting. Fasting Glucose reference ranges are: 0 - 150 years: 70 mg/dL - 99 mg/dL Current interpretive data was last revised on 2013. POC Device Number [id number] 4 HERBER BJWCH Blood 01/09/2025 5:05 PM CDT 01/09/2025 5:05 PM CDT Parag Xie MD LAB POCT ORDERABLES - DEV ICE Final Result Performing Organization Address [facility] Co de Phone Number HERBER JIMENEZWCH [address] [place] [employer] [place] [address] * (ABNORMAL) POCT glucose (01/09/2025 2:05 PM CDT) Pathologist [facility] Glucose, POC 228(H) 70 - 199 mg/dL Comment: Interpretive Data Glucose is assumed to be non-fasting. Fasting Glucose reference ranges are: 0 - 150 years: 70 mg/dL - 99 mg/dL Current interpretive data was last revised on 2013. POC Device Number [id number] 4 HERBER JIMENEZWCH Blood 01/09/2025 2:05 PM CDT 01/09/2025 2:05 PM CDT Parag Xie MD LAB POCT ORDERABLES - DEV ICE Final Result Performing Organization Address [facility] de Phone Number HERBER BJWCH [address] [employer]. [place] [address] * Hepatitis B Surface Antigen Blood (01/09/2025 1:16 PM CDT) [facility] HepBsAg Nonreactive Nonreactive Comment:Testing performed by : [facility], [facility], [place]., [address] Blood 01/09/2025 1:16 PM CDT 01/09/2025 2:13 PM CDT Russell Weller MD LAB MICROBIOLOGY - GENER AL ORDERABLES Final Result Performing Organization Address [facility] Co de Phone Number HERBER BJWCH [address] [employer]. Department [place] [address] * (ABNORMAL) POCT glucose (01/09/2025 12:44 PM CDT) Glucose, POC 298(H) 70 - 199 mg/dL Comment: Interpretive Data Glucose is assumed to be non-fasting. Fasting Glucose reference ranges are: 0 - 150 years: 70 mg/dL - 99 mg/dL Current interpretive data was last revised on 2013. POC Device Number [id number] 4 HERBER REINA Blood 01/09/2025 12:4 4 PM CDT 01/09/2025 12:44 PM CDT Parag Xie MD LAB POCT ORDERABLES - DEV ICE Final Result Performing Organization Address [facility] de Phone [facility] [address] [address] [facility]. [facility] [place] [address] * (ABNORMAL) POCT glucose (01/09/2025 12:00 PM CDT) Glucose, POC 342(H) 70 - 199 mg/dL Comment: Interpretive Data Glucose is assumed to be non-fasting. Fasting Glucose reference ranges are: 0 - 150 years: 70 mg/dL - 99 mg/dL Current interpretive data was last revised on 2013. POC Device Number [id number] [facility] Blood 01/09/2025 12:0 0 PM CDT 01/09/2025 12:00 PM CDT Parag Xie MD LAB POCT ORDERABLES - DEV ICE Final Result Performing Organization Address [facility] de Phone Number [facility] [address] [facility] [place] [address] * (ABNORMAL) POCT glucose (01/09/2025 10:55 AM CDT) Glucose, POC 358(H) 70 - 199 mg/dL Comment: Interpretive Data Glucose is assumed to be non-fasting. Fasting Glucose reference ranges are: 0 - 150 years: 70 mg/dL - 99 mg/dL Current interpretive data was last revised on 2013. POC Device Number [id number] HERBER JIMENEZWCH Blood 01/09/2025 10:5 5 AM CDT 01/09/2025 10:55 AM CDT us Parag Xie MD LAB POCT ORDERABLES - DEV ICE Final Result HERBER REINACH [address] [facility]. Department [place] [address] * IR Gastrojejunostomy Tube Placement (01/09/2025 10:32 AM CDT) Anatomical Region Laterality Modality Body N/A X-Ray Angiograph y 01/09/2025 4:17 PM CDT Impressions 01/09/2025 4:17 PM CDT Successful placement of a 18 Yoruba Arlene single lumen gastrojejunostomy catheter. PLAN: The [...] was obtained. Prior to beginning the procedure, Buena Protocol was performed to confirm the patient's [...] was obtained. Prior to beginning the procedure, Buena Protocol was performed to confirm the patient's [...] jejunum. IMPRESSION: Successful placement of a 18 Yoruba Arlene single lumen gastrojejunostomy catheter. PLAN: The catheter is ready for feeding immediately through the jejunal port. Please flush the catheter with 20 cc of water after every feed and once each shift. Never attempt to administer crushed pills through the jejunal lumen. Electronically signed by: Jamie Bell M.D. Yessenia Dominguez MD IMG IR PROCEDURES Final Res ult * DE AN ELECTIVE ENDOTRACHEAL AIRWAY, DE AN PROCEDURE PLACEHOLDER (01/09/2025 9:43 AM CDT) [...] braces,and tongue remain unchanged from preop assessment. us Jeferson Pascal MD ANESTHESIA ORDERABLES F inal Result * POCT glucose (01/09/2025 9:02 AM CDT) Glucose, POC 120 70 - 199 mg/dL Comment: Interpretive Data Glucose is assumed to be non-fasting. Fasting Glucose reference ranges are: 0 - 150 years: 70 mg/dL - 99 mg/dL Current interpretive data was last revised on 2013. POC Device Number [id number] HERBER BJW[facility] Blood 01/09/2025 9:02 AM CDT 01/09/2025 9:02 AM CDT us Parag Xie MD LAB POCT ORDERABLES - DEV ICE Final Result [facility] [address] [facility]. [facility] [place] [address] * POCT hCG, urine (01/09/2025 8:59 AM CDT) HCG, ur, POC Negative Negative Lot Number [id number] QC Backgroud Clear Acceptable QC Control Line Acceptable Urine 01/09/2025 8:59 AM CDT us Jamie Bell MD POINT OF CARE TEST ORDERAB LES Final Result * POCT glucose (01/09/2025 7:09 AM CDT) Glucose, POC 92 70 - 199 mg/dL Comment: Interpretive Data Glucose is assumed to be non-fasting. Fasting Glucose reference ranges are: 0 - 150 years: 70 mg/dL - 99 mg/dL Current interpretive data was last revised on 2013. POC Device Number [id number] HERBER MARCANO Blood 01/09/2025 7:09 AM CDT 01/09/2025 7:09 AM CDT Parag Xie MD LAB POCT ORDERABLES - DEV ICE Final Result Performing Organization Address [facility] de Phone Number [facility] [address] [facility] [address] [place], [place] [id number] * POCT glucose (01/09/2025 4:11 AM CDT) Glucose, POC 130 70 - 199 mg/dL Comment: Interpretive Data Glucose is assumed to be non-fasting. Fasting Glucose reference ranges are: 0 - 150 years: 70 mg/dL - 99 mg/dL Current interpretive data was last revised on 2013. POC Device Number [id number] HERBER MARCANO Blood 01/09/2025 4:11 AM CDT 01/09/2025 4:11 AM CDT Yessenia Dominguez MD LAB POCT ORDERABLES - DEVIC E Final Result Performing Organization Address [facility] de Phone Number [facility] [address] [facility] [address] [place], [place] [id number] * Beta-hydroxybutyrate (01/09/2025 12:50 AM CDT) Beta-Hydroxybut yrate <0.5 0.0 - 0.5 mmol/L Blood 01/09/2025 12:5 0 AM CDT 01/09/2025 12:57 AM CDT Yessenia Dominguez MD LAB BLOOD ORDERABLES Edited Result - Final Performing Organization Address [facility] de Phone Number [facility] [address] [facility] [address] [place], [place] [id number] * (ABNORMAL) eGFR (01/09/2025 12:49 AM CDT) [...] Dominguez MD LAB BLOOD ORDERABLES Final Result [facility] [address] [facility]. Department [place] [address] * Blood gas, venous (01/09/2025 12:49 AM CDT) pH, Venous 7.34 7.32 - 7.43 PCO2, Venous 42 40 - [address] [facility] PO2, Venous 60 mmHg [facility] Comment: Interpretive Data No reference range established. Current interpretive data was last revised 2019. HCO3 Venous, Calculated 23 20 - 30 mmol/L HERBER [facility] BE, venous -3 mmol/L HERBER W Comment: Interpretive Data No Reference Range Established Current Interpretive Data was last revised on 2017. Blood 01/09/2025 12:4 9 AM CDT 01/09/2025 12:57 AM CDT Yessenia Dominguez MD LAB BLOOD ORDERABLES Final Result HERBER MARCANO [address] [employer]. [place] [address] * (ABNORMAL) Basic metabolic panel (01/09/2025 12:49 AM CDT) Pathologist [facility] Sodium 138 135 - 145 mmol/L Potassium, pl 4.4 3.3 - 4.9 mmol/L [facility] Chloride 101 97 - 110 mmol/L [facility] CO2 22 22 - 32 mmol/L [facility] Anion gap 15 2 - 15 mmol/L [facility] BUN 55(H) 6 - 25 mg/dL [facility] Creatinine 9.20(H) 0.60 - 1.10 mg/dL [facility] Glucose 292(H) 70 - 199 mg/dL [facility] Comment: Interpretive Data Fasting glucose >/= [...] Calcium 7.2(L) 8.5 - 10.3 mg/dL [facility] Blood 01/09/2025 12:4 9 AM CDT 01/09/2025 12:57 AM CDT Yessenia Dominguez MD LAB BLOOD ORDERABLES Final Result Performing Organization Address City/[facility]/ZIP Co de Phone Number HERBER MARCANO [address] [address] [place] [address] * (ABNORMAL) POCT glucose (01/09/2025 12:16 AM CDT) Glucose, POC 322(H) 70 - 199 mg/dL Comment: Interpretive Data Glucose is assumed to be non-fasting. Fasting Glucose reference ranges are: 0 - 150 years: 70 mg/dL - 99 mg/dL Current interpretive data was last revised on 2013. POC Device Number [id number] HERBER MARCANO Blood 01/09/2025 12:1 6 AM CDT 01/09/2025 12:16 AM CDT Yessenia Dominguez MD LAB POCT ORDERABLES - DEVIC E Final Result Performing Organization Address [facility] de Phone Number [facility] [address] [employer] [place] [address] * (ABNORMAL) POCT glucose (01/08/2025 10:21 PM CDT) Glucose, POC 399(H) 70 - 199 mg/dL Comment: Interpretive Data Glucose is assumed to be non-fasting. Fasting Glucose reference ranges are: 0 - 150 years: 70 mg/dL - 99 mg/dL Current interpretive data was last revised on 2013. POC Device Number [id number] HERBER REINA Blood 01/08/2025 10:2 1 PM CDT 01/08/2025 10:21 PM CDT Yessenia Dominguez MD LAB POCT ORDERABLES - DEVIC E Final Result Performing Organization Address [facility] Co de Phone Number [facility] [address] [facility] [place] [address] * XR Chest 1 View [...] it. Electronically signed by: Femi Tuttle M.D. Yessenia Dominguez MD IMG XR PROCEDURES Final [...] Inclusion of Race in Diagnosing Kidney Disease, [employer]OL[employer] 2020). The CKD-EPI equation should not be used for patients with unstable renal function and has not been validated in children and those over 70. Current interpretive data was last reviewed 2021. Blood 01/08/2025 8:57 PM CDT 01/08/2025 9:02 PM CDT us Yareli Mitchell MD LAB BLOOD ORDERABLES F inal Result [facility] [address] [facility]. Department [place] [address] * Differential, auto (01/08/2025 8:57 PM CDT) [...] [facility]ER [facility] Neutrophil pct 57.9 % CERLULY JIMENEZWCH Comment: Interpretive Data Percent cell count reference ranges are not reported, since discordance with absolute values may lead to misinterpretation of CBC data. Current Interpretive Data was last revised on 2017. Imm gran pct 0.3 % CERNER BARBARAW Comment: Interpretive Data Percent cell count reference ranges are not reported, since discordance with absolute values may lead to misinterpretation of CBC data. Current Interpretive Data was last revised on 2017. Lymphocyte pct 27.3 % CERLULY JIMENEZW[facility] Comment: Interpretive Data Percent cell count reference ranges are not reported, since discordance with absolute values may lead to misinterpretation of CBC data. Current Interpretive Data was last revised on 2017. Monocyte pct 10.7 % CERLULY JIMENEZW[facility] Comment: Interpretive Data Percent cell count reference ranges are not reported, since discordance with absolute values may lead to misinterpretation of CBC data. Current Interpretive Data was last revised on 2017. Eosinophil pct 3.6 % [facility] Comment: Interpretive Data Percent cell count reference ranges are not reported, since discordance with absolute values may lead to misinterpretation of CBC data. Current Interpretive Data was last revised on 2017. Basophil pct 0.2 % [facility] Comment: Interpretive Data Percent cell count reference ranges are not reported, since discordance with absolute values may lead to misinterpretation of CBC data. Current Interpretive Data was last revised on 2017. Blood 01/08/2025 8:57 PM CDT 01/08/2025 9:02 PM CDT Yareli Mitchell MD LAB BLOOD ORDERABLES F inal Result Performing Organization Address [facility] Co de Phone Number [facility] [address] [address] [employer] [place] [address] * Beta-hydroxybutyrate (01/08/2025 8:57 PM CDT) Pathologist [facility] Beta-Hydroxybut yrate <0.5 0.0 - 0.5 mmol/L Blood 01/08/2025 8:57 PM CDT 01/08/2025 9:02 PM CDT Yessenia Dominguez MD LAB BLOOD ORDERABLES Final Result Performing Organization Address City/[facility] Co de Phone Number [facility] [address] [place] [employer] [facility] [place] [address] * (ABNORMAL) CBC with auto differential (01/08/2025 8:57 PM CDT) Pathologist [facility] WBC 6.16 3.80 - 9.90 K/cumm Hgb 9.2(L) 11.9 - 15.5 g/dL HERBER [facility] Hct 29.0(L) 35.6 - 45.5 % HERBER [facility] Plt 320 150 - 400 K/cumm [facility] MPV 10.6 9.1 - 12.3 fL [facility] RBC 3.25(L) 3.90 - 5.20 M/cumm [facility] MCV 89.2 81.3 - 96.4 fL [facility] MCH 28.3 27.1 - 33.3 pg [facility] MCHC 31.7(L) 32.3 - 35.7 g/dL [facility] RDW CV 14.9 11.1 - 14.9 % [facility] RDW SD 48.1 35.7 - 48.1 fL [facility] NRBC abs 0.00 0.00 - 0.01 K/cumm [facility] Blood 01/08/2025 8:57 PM CDT 01/08/2025 9:02 PM CDT Yareli Mitchell MD LAB BLOOD ORDERABLES F inal Result Performing Organization Address [facility] de Phone Number [facility] [address] [employer] [place], [place] [id number] * Protime-INR (01/08/2025 8:57 PM CDT) [facility] PT 11.7 10.2 - 13.5 sec INR 1.04 0.90 - 1.20 [facility] Comment: Interpretive data Oral anticoagulant [...] ORDERABLES F inal Result Performing Organization Address [facility] Co de Phone Number [facility] [address] [place] [address] * (ABNORMAL) Renal function panel (01/08/2025 8:57 PM CDT) [facility] Sodium 136 135 - 145 mmol/L Potassium, [...] LAB BLOOD ORDERABLES F inal Result [facility] J[facility]ENEZWCH [address] [facility]. Department [place] [address] * (ABNORMAL) POCT glucose (01/08/2025 7:44 PM CDT) Glucose, POC 320(H) 70 - 199 mg/dL Comment: Interpretive Data Glucose is assumed to be non-fasting. Fasting Glucose reference ranges are: 0 - 150 years: 70 mg/dL - 99 mg/dL Current interpretive data was last revised on 2013. POC Device Number [id number] HERBER MARCANO Blood 01/08/2025 7:44 PM CDT 01/08/2025 7:44 PM CDT Yessenia Dominguez MD LAB POCT ORDERABLES - DEVIC E Final Result Performing Organization Address [facility] Co de Phone Number [facility] [address] [facility] [place] [address] * (ABNORMAL) POCT glucose (01/08/2025 6:43 PM CDT) Glucose, POC 320(H) 70 - 199 mg/dL Comment: Interpretive Data Glucose is assumed to be non-fasting. Fasting Glucose reference ranges are: 0 - 150 years: 70 mg/dL - 99 mg/dL Current interpretive data was last revised on 2013. POC Device Number [id number] HERBER MARCANO Blood 01/08/2025 6:43 PM CDT 01/08/2025 6:43 PM CDT Viraj Olivo MD LAB POCT ORDERABLES - DEVICE Fin al Result Performing Organization Address [facility] Co de Phone Number [facility] [address] [facility] [address] [place], [place] [phone] * XR Foot Right 3 or More [...] severe secondary right ankle osteoarthritis. Small effusion. Rtaq-qg-pnmjbdbj pes planus with old healed midfoot fractures, polyarticular midfoot osteoarthritis and fragmentation. Soft tissue swelling is present. Arterial atherosclerosis is noted. Mild 1st metatarsophalangeal joint osteoarthritis. IMPRESSION: 1. Old healed distal right tibia and fibular fractures with hindfoot valgus and moderate to severe secondary right ankle osteoarthritis. 2. Csbs-ev-puixznjg right pes planus with old healed midfoot fractures, polyarticular midfoot osteoarthritis and fragmentation. THIS IS AN ELECTRONICALLY VERIFIED FINAL REPORT 01/09/2025 4:28 PM - Electronically signed by Andrei Nguyen M.D. T: Report ID: [id number] Reading Location: [id number] Procedure Note Andrei Nguyen MD - 01/09/2025 [...] severe secondary right ankle osteoarthritis. Small effusion. Vazs-yd-hjiyouwz pes planus with oldhealed midfoot fractures, polyarticular midfoot osteoarthritis and fragmentation. Soft tissue swelling is present. Arterial atherosclerosis is noted. Vkua6gp metatarsophalangeal joint osteoarthritis. IMPRESSION: 1. Old healed distal right tibia and fibular fractures with hindfootvalgus and moderate to severe secondary right ankle osteoarthritis. 2. Cdiy-jv-hcvfafhk right pes planus with old healed midfoot fractures, polyarticular midfoot osteoarthritis and fragmentation. THIS IS AN ELECTRONICALLY VERIFIED FINAL REPORT 01/09/2025 4:28 PM - Electronically signed by Andrei Nguyen M.D. T: Report ID: [id number] Reading Location: [id number] Raul Clark DO IMG XR PROCEDURES Final [...] severe secondary right ankle osteoarthritis. Small effusion. Yvmx-gj-hjkviqxn pes planus with old healed midfoot fractures, polyarticular midfoot osteoarthritis and fragmentation. Soft tissue swelling is present. Arterial atherosclerosis is noted. Mild 1st metatarsophalangeal joint osteoarthritis. IMPRESSION: 1. Old healed distal right tibia and fibular fractures with hindfoot valgus and moderate to severe secondary right ankle osteoarthritis. 2. Tjcb-sd-xuqtfsuq right pes planus with old healed midfoot fractures, polyarticular midfoot osteoarthritis and fragmentation. THIS IS AN ELECTRONICALLY VERIFIED FINAL REPORT 01/09/2025 4:28 PM - Electronically signed by Andrei Nguyen M.D. T: Report ID: [id number] Reading Location: [id number] Procedure Note Andrei Nguyen MD - 01/09/2025 [...] severe secondary right ankle osteoarthritis. Small effusion. Jjli-uu-plfnaqji pes planus with oldhealed midfoot fractures, polyarticular midfoot osteoarthritis and fragmentation. Soft tissue swelling is present. Arterial atherosclerosis is noted. Yhvg8tw metatarsophalangeal joint osteoarthritis. IMPRESSION: 1. Old healed distal right tibia and fibular fractures with hindfootvalgus and moderate to severe secondary right ankle osteoarthritis. 2. Kclf-qv-gbtggcqe right pes planus with old healed midfoot fractures, polyarticular midfoot osteoarthritis and fragmentation. THIS IS AN ELECTRONICALLY VERIFIED FINAL REPORT 01/09/2025 4:28 PM - Electronically signed by Andrei Nguyen M.D. T: Report ID: [id number] Reading Location: [place] [address] us Raul Clark DO IMG XR PROCEDURES Final Result * POCT glucose (12/26/2024 9:47 AM CDT) [facility] Signature Glucose, POC 197 70 - 199 mg/dL Blood 12/26/2024 9:47 AM CDT 12/26/2024 9:47 AM CDT us Young Vasquez MD LAB POCT ORDERABLES - DEVICE Final Result Performing Organization Address City/State/[facility] Co de Phone Number [facility] Department [place] [address] * Colonoscopy (12/26/2024 9:16 AM CDT) Anatomical Region Laterality Modality Other Narrative Procedure Note Young Vasquez MD - 12/26/2024 9:16 AM CDT [facility]OSCOPY [facility] Patient Name: Brissa Angela Procedure Date: 12/26/2024 9:16 AM Date of : 1995 Admit Type: Outpatient Age: 29 Gender: Female Attending MD: Young Vasquez M.D., Room: [facility] ENDOSCOPY ROOM 8 Note Status: Finalized [...] was passed under direct vision.The [id number] [id number] endoscope was introduced through the anus and [...] portions. Electronically Signed by Young Vasquez M.D. Yougn Vasquez M.D. 12/26/2024 9:29:59 AM . Number of Addenda: 0 Note Initiated On: 12/26/2024 9:16 AM us Young Vasquez MD ENDOSCOPY PROCEDURES F inal Result * DE AN ELECTIVE ENDOTRACHEAL AIRWAY, DE AN PROCEDURE PLACEHOLDER (12/26/2024 9:02 AM CDT) Narrative Federico Beltran CRNA - 12/26/2024 9:02 AM CDT Federico Beltran CRNA 12/26/2024 9:03 AM Airway Patient location: OR Urgency: elective Indications for airway management: anesthesia Difficult airway: no Staff: Supervising provider: Dylan Frias MD Placed by: REFUND CLERK: Federico Beltran CRNA Emergent airway documentation: Risks [...] Biopsy) 12/26/2024 9:25 AM CDT Narrative PATHOLOGY [facility] - 12/27/2024 6:13 PM CDT EPIC results best viewed via link to PDF [facility] [place] [address] Note to Patients: This report may contain [...] Gender: F : 1995 (Age: 29) Address: [address] [place] [id number] Hospital #: [id number] Taken:12/26/2024 Received:12/26/2024 Reported: 12/27/2024 Patient Type: [facility] Service: Gastro Location: Physician(s): Caesar Ruff M.D. [...] Surgical Pathology and Flow Cytometry Departments at [facility] as part of an ongoing supplier quality specialist program and in compliance with federally mandated [...] Surgical Pathology and Flow Cytometry Departments of [facility]. It has not been cleared or approved by the U. S. Food and Drug Administration. IMAGES AND SCANNED DOCUMENTS, IF INCLUDED, ONLY VIEWABLE IN PDF VERSION OF REPORT us Young Vasquez MD LAB PATHOLOGY ORDERABL ES Final Result PATHOLOGY [facility] 3rd Floor [place], [place] [phone] * EGD (12/26/2024 8:55 AM CDT) Anatomical Region Laterality Modality Other Narrative Procedure Note Young Vasquez MD - 12/26/2024 8:55 AM CDT [facility] Patient Name: Brissa Angela Procedure Date: 12/26/2024 8:55 AM Date of : 1995 Admit Type: Outpatient Age: 29 Gender: Female Attending MD: Young Vasquez M.D., Room: [facility] ENDOSCOPY ROOM 8 Note Status: Finalized [...] passed under direct vision. The [id number] endoscope was introduced through the mouth, and [...] HCG, ur, POC Negative Negative Lot Number [id number] QC Backgroud Clear Acceptable QC Control Line Acceptable Urine 12/26/2024 8:43 AM CDT Young Vasquez MD POINT OF CARE TEST ORD ERABLES Final Result * POCT glucose (12/26/2024 8:41 AM CDT) Glucose, POC 102 70 - 199 mg/dL Blood 12/26/2024 8:41 AM CDT 12/26/2024 8:41 AM CDT Young Vasquez MD LAB POCT ORDERABLES - DEVICE Final Result HERBER [facility] Department [place] [address] * (ABNORMAL) POCT glucose (12/26/2024 7:53 AM CDT) Glucose, POC 67(L) 70 - 199 mg/dL Blood 12/26/2024 7:53 AM CDT 12/26/2024 7:53 AM CDT Young Vasquez MD LAB POCT ORDERABLES - DEVICE Final Result Performing Organization Address City/[facility]/ZIP Co de Phone Number HERBER [facility] Department [place] [address] * (ABNORMAL) eGFR (12/26/2024 7:03 AM CDT) [...] LAB BLOOD ORDERABLES F inal Result HERBER [facility] Department [place] [address] * (ABNORMAL) Comprehensive metabolic panel (12/26/2024 7:03 AM CDT) [facility] Sodium 129(L) 135 - 145 mmol/L Potassium, pl 4.8 3.3 - 4.9 mmol/L [facility] Comment:Hemolyzed; Potassium value may be falsely elevated by as much as 0.6-1.0 mmol/L. Suggest redraw and reanalysis. Chloride 94(L) 97 - 110 mmol/L [facility] CO2 25 22 - 32 mmol/L [facility] Anion gap 10 2 - 15 mmol/L [facility] BUN 18 6 - 25 mg/dL [facility] Creatinine 6.44(H) 0.60 - 1.10 mg/dL [facility] Glucose 110 70 - 199 mg/dL [facility] Comment: Interpretive Data Fasting glucose >/= [...] Calcium 8.2(L) 8.5 - 10.3 mg/dL [facility] Bilirubin, total 0.4 0.1 - 1.2 mg/dL [facility] Protein, pl 7.9 6.5 - 8.5 g/dL [facility] Albumin 3.7 3.5 - 5.0 g/dL [facility] Alk phos 181(H) 40 - 130 Units/L [facility] ALT 18 7 - 45 Units/L [facility] AST 31 10 - 45 Units/L [facility] Comment:Hemolyzed; result ma y be falsely elevated Blood 12/26/2024 7:03 AM CDT 12/26/2024 7:04 AM CDT Young Vasquez MD LAB BLOOD ORDERABLES F inal Result [facility] Department [place] [address] * CT Abdomen and Pelvis Enterography W [...] by: Arielle Sharpe M.D. Young Vasquez MD IM CT PROCEDURES Marli l Result * CT Ankle Right WO Contrast (12/22/2024 12:45 PM CDT) Anatomical Region Laterality Modality Ankle Right Computed Tomogra phy 12/22/2024 1:5 5 PM CDT Narrative 12/22/2024 2:09 PM CDT [...] signed by Mahin CORDOVA T: Report ID: [id number] Reading Location: [id number] Procedure Note Mahin Balderrama MD - 12/22/2024 [...] signed by Mahin CORDOVA T: Report ID: [id number] Reading Location: [place] [address] [address] PROCEDURES Final [...] 2:09 PM - Electronically signed by Mahin CORDOAV T: Report ID: [id number] Reading Location: [id number] Procedure Note Mahin Balderrama MD - 12/22/2024 [...] signed by Mahin CORDOVA T: Report ID: [id number] Reading Location: [place] [address] Raul Clark DO IMG [address] PROCEDURES Final [...] by Andrei Nguyen M.D. T: Report ID: [id number] Reading Location: [id number] Procedure Note Andrei Nguyen MD - 12/10/2024 [...] by Andrei Nguyen M.D. T: Report ID: [id number] Reading Location: [id number] Raul Clark DO IMG XR PROCEDURES Final [...] by Andrei Nguyen M.D. T: Report ID: [id number] Reading Location: [id number] Procedure Note Andrei Nguyen MD - 12/10/2024 [...] by Andrei Nguyen M.D. T: Report ID: [id number] Reading Location: [place] [address] Raul Eduardo DO IMG XR PROCEDURES Final Result * [...] Dennis Cadet MD LAB BLOOD ORDERABLES Marli deisi Result [facility] Department [place] [address] * Lipid panel (10/29/2024 8:13 PM CDT) [...] revised on 2017. Triglycerides 92 <=149 mg/dL [facility] Comment: Interpretive Data Ages < or [...] revised on 2017. HDL 49 >=40 mg/dL [facility] Comment: Interpretive Data Ages < or [...] on 2017. LDL, calculated 58 <=129 mg/dL [facility] Comment: Interpretive Data Ages < or [...] 3. Giovanni Lucas et al. CARLOS Cardiol. 2019August 17;5(5):540541. doi: 10.1001/jamacardio.2020.0013 Current Interpretive Data was last revised on 2023. Non-HDL Cholesterol 75 mg/dL [facility] Comment: Interpretive Data Ages < or [...] revised on 2017. Chol/HDL ratio 3 [facility] Blood 10/29/2024 8:13 PM CDT 10/29/2024 8:27 PM CDT Dennis Cadet MD LAB BLOOD ORDERABLES Marli l Result [facility] Department [place] [address] * TSH (01/09/2024 3:52 PM CDT) Thyroid Stimulating Hormone 2.46 0.30 - 4.20 mcIUnit/mL Blood 01/09/2024 3:52 PM CDT 01/09/2024 4:46 PM CDT Sailaja Ramos MD LAB BLOOD ORDERABLES Final Result Performing Organization Address City/[facility]/ZIP Co de Phone Number [facility] Department [place] [address] * Hepatitis panel, acute Blood (12/24/2023 7:26 [...] - GENERAL OR DERABLES Final Result [facility] [id number] [facility] Department [place] [address] from Last 3 Months or Most Recently Relevant to Health Maintenance
--- OUTSIDE RECORDS SUMMARY | 2025-02-22 17:35 | XMS_ITS | Encounter Summary ---
Author Organization [facility] Facility Care Team Providers Care Auditor Name Role Phone Unknown, Notinfile Primary Care Provider Unavail able Lay Villalta MD Primary Care Provider [phone] Tremayne Kebede MD Unavailable [phone] Georgia Mcbride HHA Unavailable [phone] Miscellaneous, Not In File Unavailable Unava ilable Eun Camacho Primary Care Provider + Cony Pemberton GEOPHYSICAL PROSPECTOR Unavailable [phone] Antonette Vernon RN Unavailable [phone] Andrei Chaves MD PhD Unavailable [phone] Olivia Phelps MD Unavailable [phone] Edgardo Aldridge MD Primary Care Provider [phone] Odilon Tellez MD Unavailable [phone] Miscellaneous, Not In File Unavailable Unava ilable Ct Boggs GEOPHYSICAL PROSPECTOR Unavailable [phone] Odilon Tellez MD Unavailable [phone] Tracey Felix RN Unavailable [phone] Ayaka Thomas MD Unavailable [phone] Yumi Jones NP Unavailable [phone] TosinRogersRuthy GEOPHYSICAL PROSPECTOR Unavailable Unavaila ble Feli Boggs RN Unavailable [phone] Mendel Bowling RN Unavailable [phone] Leslie Baptiste [facility] Unavailable [phone] Mendel Bowling RN Unavailable [phone] Odilon Tellez MD Unavailable [phone] Mavis Barahona RN Unavailable [phone] Mahnaz Garcia RN Unavailable [phone] Jaimie Glez RN Unavailable [phone] Encounter Details Date Type Department Care Team (Latest Contact Info) Description 02/01/2017 Orders Only [facility] CLINCONV Provider, MD [facility] [address] [place] [address] Social History Tobacco Use Types Packs/Day Years Used Date Smoking Tobacco: Never Comments Unknown Sex and Gender Information Value Date Recorded Sex Assigned at Not on file Legal Sex Female 9:16 AM CARETAKER Gender Identity Not on file Sexual Orientation [...] CDT COVID19 02/02/2020 02/02/2020 02/19/2020 3:05 AM CARETAKER COVID: Recovered Comment:Added based on recent COVID [...] COVID: Suspected 06/15/2023 06/15/2023 06/15/2023 5:53 PM CARETAKER C. difficile suspected 06/24/2023 06/24/202306/26 6:03 AM CDT COVID: Suspected 06/27/2023 06/27/2023 06/27/2023 7:07 PM CDT COVID: Suspected 07/10/2023 07/10/2023 07/10/2023 6:50 AM CDT COVID: Suspected 07/13/2023 07/13/2023 07/13/2023 9:45 PM CDT MRSA Comment:MRSA Isolation Prison 06/21/24 10/23/2023 02/09/2024 06/21/2024 6:[address] C. 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 Source: [facility]. 08/20/2024 Carbapenemase, Unspecified Comment:Added from external infection. Source: [facility]. Kleb pneumo KPC 09/23/2024 10/31/2024 3:07 PM C DT CP-SERGEANT OF OFFICERS Comment:Added from external infection. Source: [facility]. Kleb pneumo KPC 10/31/2024 10/31/2024 documented as of this encounter Care Teams Auditor Relationship Specialty Start Date End Date Unknown, Notinfile PCP - General 12/28/16 08/23/18 Lay Villalta MD PCP - General Family Medicine 08/24/18 07/17/21 Eun Camacho PA PCP - General Family Medicine 07/18/21 03/08/23 Edgardo Aldridge MD [address] [facility] [address] or 4 [place] [id number] PCP - General Family Medicine 04/02/23 Tremayne Kebede MD Consulting Physician Gastroenterology 02/05/20 3 Georgia Mcbride LPN [address] [place] [address] [address] [place] [address] ACO Care Managed Care Liaison 11/28/20 12/19/20 Miscellaneous, Not In File 07/17/21 03/16/23 Cony Pemberton, GEOPHYSICAL PROSPECTOR [address] [facility] ([facility] Mailstop [phone] [place] [address] SHOP Outpatient Associate Agent Insurance Sales 12/07/22 12/07/22 Antonette Vernon, KADY [address] [place] [address] SHOP Outpatient Associate Agent Insurance Sales 12/08/22 01/05/23 Andrei Chaves MD PhD [address] [facility] [address] [place] [address] Referring Physician General Surgery 03/17/23 Olivia Phelps MD [address] [employer] [address] [place], [place] [address] Consulting Physician Nephrology 03/17/23 Odilon Tellez MD [address] [facility] [address] [place], [place] [address] Consulting Physician Nephrology 05/01/23 12/04/24 Miscellaneous, Not In File 07/08/23 01/24/24 Ct Boggs, [facility] [address] [facility] ([facility]) Mailstop [phone] [place] [address] SHOP Outpatient Associate Agent Insurance Sales 07/09/23 08/05/23 Odilon Telelz MD [address] [employer] [address] [place] [address] Referring Physician Nephrology 11/12/23 Tracey Felix, KADY [address] [place] [address] Industry Segment Specialist 11/12/23 11/17/23 Ayaka Thomas MD [address] [facility] [address] [place] [address] Fellow Internal Medicine 12/17/23 Yumi Jones NP [address] [facility] [address] [place] [address] Nurse Practitioner Hospice and Palliative Medicine 08/16/23 Ruthy Leahy LCSW [place] Crew Member 12/31/23 02/22/24 Feli Boggs, RN [address] [place] [address] [address] [place] [address] Cytotechnologist 12/31/23 01/02/24 Mendel Bowling, KADY [address] [place] [address] [address] [place] [address] Cytotechnologist 01/03/24 03/23/24 Leslie Baptiste, [address] [place] [address] Pharmacist Pharmacy 01/13/24 02/03/24 Mendel Bowling, KADY [address] [place] [address] [address] [place] [address] Cytotechnologist 11/07/24 01/04/25 Odilon Tellez MD [address] [facility] [address] [place] [address] Consulting Physician Nephrology 12/05/24 Mavis Barahnoa, RN [address] [facility] [address] [place] [address] Industry Segment Specialist 12/20/24 01/08/25 Mahnaz Garcia, KADY [address] [place] [address] [address] [place] [address] Cytotechnologist 01/15/25 01/15/25 Jaimie Glez RN [address] [place] [address] [address] [place] [address] Cytotechnologist 01/29/25 02/07/25 documented as of this encounter
--- OUTSIDE RECORDS SUMMARY | 2025-02-22 17:35 | XMS_ITS | Clinical Summary ---
Author Organization [facility] Address [address] [facility] [place] [address] Care Team Providers Care Survey Project Manager Name Role Phone Edgardo Aldridge MD Primary Care Provider [phone] Source Comments [facility],non-owned Affiliates and Associated Physician Practices is amultiple site organization consisting of ambulatory clinics and hospital sitesin [place], [place], [place] and [place]. This disclosure is being madepursuant to the Care Everywhere program and may not contain all information available regarding this patient. Last updated 18.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 Not on file [...] AWV 12 MONTHS 1995 HIV SCREENING 06/16/2010 HEPATITIS C SCREENING 06/12/2013 DTAP/TDAP/TD VACCINES (1 - Tdap) 06/16/2014 PNEUMOCOCCAL VACCINE (1 of 2 - PCV) 06/16/2014 HEPATITIS B VACCINE (1 of 3 - Risk Dialysis 4-dose series) 2015 PAP SMEAR 06/16/2016 DIABETES RETINOPATHY SCREENING 06/07/2018 DIABETES-FOOT EXAM WITH MONOFILAMENT 06/07/2018 DIABETES-HGB A1C 12/06/2018 06/08/2018, , 10/07/2015, Additional history exists HPV VACCINE (1 - 3-dose SCDM series) 06/16/2022 DEPRESSION SCREENING 04/19/2024 DIABETES - URINE PROTEIN SCREENING 04/19/2024 COVID-19 VACCINE (2 - 2024- season) 2024 01/24/2021 DIABETES-SERUM CREATININE 01/31/20252023, 06/10/2018, 06/09/2018, Additional history exists ZOSTER VACCINE (1 of 2) 06/16/2045 INFLUENZA VACCINE Completed 01/18/2025, , 02/16/2023, Additional history exists HIB VACCINE Aged Out [...] General On track( 024 12:22 PM CDT) No Ari Dumont, RN Note: Expected end date: ongoing Interventions: [...] examination HEMOGLOBIN A1C Routine 06/08/2018 7:21 AM HEAT READER from Last 3 Months or Most Recently Relevant to Health Maintenance Results * (ABNORMAL) BASIC METABOLIC PANEL (CALCIUM TOTAL) (02/01/2024 9:01 AM CDT) BUN 54(H) 7 - 26 mg/dL 02/01/2024 9:58 AM [facility] Creatinine 6.37(H) 0.56 - 0.96 mg/dL 02/01/2024 9:58 AM [facility] Sodium 136 136 - 145 mmol/L 02/01/2024 9:58 AM [facility] Potassium 5.8(H) 3.5 - 4.5 mmol/L 02/01/2024 9:58 AM [facility] Chloride 106 98 - 107 mmol/L 02/01/2024 9:58 AM [facility] CO2 20(L) 22 - 29 mmol/L 02/01/2024 9:58 AM [facility] Glucose 35(LL) 70 - 115 mg/dL 02/01/2024 9:58 AM [facility] Calcium 8.4 8.4 - 10.2 mg/dL 02/01/2024 9:58 AM [facility] Anion Gap 10 6 - 16 02/01/2024 9:58 AM [facility] BUN/Creatinine Ratio 8 7 - 23 02/01/2024 9:58 AM [facility] Osmolality Calculated 293 275 - 295 mOsm/kg 02/01/2024 9:58 AM [facility] eGFR by CKD-EPI 9(L) >=90 mL/min/1.7 3 m2 02/01/2024 9:58 AM [facility] Blood BLOOD SPECIMEN / Unknown Venipuncture / Unknown 02/01/2024 9:01 AM CDT 02/01/2024 9:08 AM CDT Tess Dunham MD LAB - CHEMISTRY ORDERABLES Final Result [place] [id number] [place] [address], [facility] [phone] * (ABNORMAL) HEMOGLOBIN A1C (06/08/2018 7:21 AM HEAT READER) Hemoglobin A1c 14.5(H) 4.2 - 6.3 % 06/08/2018 8:06 AM HEAT READER [facility] Estimated Average Glucose 369 mg/dL 06/08/2018 8:06 AM HEAT READER [facility] Blood BLOOD SPECIMEN / Unknown Lab Venipuncture / Unknown 06/08/2018 7:21 AM HEAT READER 06/08/2018 7:37 AM HEAT READER Corina Simmons MD LAB - CHEMISTRY ORDERABLES Final Result [facility] [address] [place] [address] from Last 3 Months or Most Recently Relevant to Health [place] [address] MEDICAID - [place] [facility] [place]ICAID - [place] MEDICARE MEDICAID - OUT OF STATE Advance Directives * Full Code (Latest Code [...] 10:29 AM 07/09/2015 1:11 PM Care Teams Survey Project Manager Relationship Specialty Start Date End Date Edgardo Aldridge MD [address] [facility] [address] [address] PCP - General Family Medicine 12/28/23
--- OUTSIDE RECORDS SUMMARY | 2025-02-22 17:35 | XMS_ITS | Encounter Summary ---
Author Organization [facility] Address [address] [place] [address] Care Team Providers Care Mechanical Engineering Specialist Name Role Phone Andrei Chaves MD PhD Unavailable [phone] Olivia Phelps MD Unavailable [phone] Edgardo Aldrideg MD Primary Care Provider [phone] Odilon Tellez MD Unavailable [phone] Ayaka Thomas MD Unavailable [phone] Yumi Jones NP Unavailable [phone] Odilon Tellez MD Unavailable [phone] Jaimie Glez RN Unavailable [phone] Reason for Visit * Reason Onset Date Comments req a cb about surg 01/24/2025 FYI 01/24/2025 Encounter Details Date Type Department Care Team (Late st Contact Info) Description 01/24/2025 Telephone [facility] Medical [facility] Orthopedics and Sports Medicine [address] [facility] [address] [place] [address] Sussy Garcia PA [address] [place] [address] req a cb about surg; FYI [...] often do you attend chur ch or rastafari services? Never 11/07/2024 Do you belong to any clubs o r organizations such as taoist groups, unions, fraternal or athletic groups, or [...] Date Recorded PHQ-2 Total Score 0 01/09/2025 [facility] [place] of Occupat ional Health - Occupational Stress [...] any time in the past 12 m [facility], were you homeless or living in a [...] often do you attend chur ch or rastafari services? Never 01/17/2025 Do you belong to any clubs o r organizations such as taoist groups, unions, fraternal or athletic groups, or [...] any time in the past 12 m [facility], were you homeless or living in a [facility] (including now)? No 01/17/2025 [facility] Utilities Answer Date Recorded In [...] on file Legal Sex Female 9:16 AM GEAR SETTER Gender Identity Not on file Sexual Orientation Not on file documented as of this encounter Functional Status * Difference in Last Two Ronal Scores Answer Date of Assessment Author 0 01/26/2025 8:22 AM Mainor Castorena RN * Question Answer Date of Assessment Author BP Location Right arm 01/26/2025 8:18 AM Jody Castorena RN BP Method Automatic 01/26/2025 8:18 AM Jody Castorena RN * Question Answer Date of Assessment Author [place] Fall Risk Score (Score >= 45 places fall precaution order) 15 01/26/2025 8:22 AM Zulema Castorena RN Prior Fall Event (Autopopulated from EMR) None found 01/26/2025 8:22 AM Harvey Castorena RN * Question Answer Date of Assessment Author MAP (mmHg) 101 01/25/2025 11:06 PM CDT Jaime Beckita Rachele * Fall Risk Interventions Question Answer Date of Assessment Author All Low Fall Interventions Applied Yes 01/26/2025 8:22 AM CDT Zulema Bender RN All Moderate Fall Interventions Applied No 01/25/2025 9:20 PM CDT Sho Carr RN All Moderate Fall Risk Interventions EXCEPT: PT eval requested or obtained;OT eval requested or obtained;Remain with patient while toileting 01/25/2025 9:20 PM FELIPET Sho Carr RN Reason For Exception(s) bmat 4 01/26/20 9:20 PM FELIPET Sho Carr RN * B.M.A.T. - Bedside Mobility Assessment Tool for Nurses Question Answer Date of Assessment Author Is patient able to participate in the BMAT? Yes 01/26/2025 8:22 AM FELIPET Harvey Bender RN BMAT Level Level 4 - Green 01/26/2025 8:22 AM CDZulema Ridley RN * Pressure Injury Prevention Question Answer Date of Assessment Author Pressure Ulcer Prevention Interventions Keep skin clean and dry (Sensory Perception/Moistur e) 01/26/2025 8:22 AM Zulema Castorena RN * Integumentary Question Answer Date of Assessment Author Skin Color Appropriate for ethnicity 01/25/2025 9:20 PM Sho Heredia RN Skin Condition/Temp Warm;Dry 01/25/2025 9 :20 PM Sho Heredia RN Skin Integrity Surgical incision;Abrasion 01/26/2025 8:22 AM Zulema Castorena RN Skin Turgor Non-tenting 01/25/2025 9:20 PM FELIPET Sho Carr RN Integumentary Additional Assessments Yes-Ronal 01/25/2025 9:20 PM FELIPET Sho Carr RN Integumentary (WDL) X 01/26/2025 8 :22 AM Zulema Castorena RN Skin Location abdomen, feet 01/26/2025 8:22 AM CDT Zulema Bender RN * Question Answer Date of Assessment Author BP Location Right arm 01/26/2025 8:18 AM CDT Jody Bender RN BP Method Automatic 01/26/2025 8:18 AM CDT Jody Bender RN * Question Answer Date of Assessment Author Percent Meal Eaten (%) 25 01/25/2025 4:06 PM CDT Rohini Soliman * Fall Risk Interventions Question Answer Date of Assessment Author All Low Fall Interventions Applied Yes 01/26/2025 8:22 AM CDT Zulema Bender RN All Moderate Fall Interventions Applied No 01/25/2025 9:20 PM CDT Sho Carr RN All Moderate Fall Risk Interventions EXCEPT: PT eval requested or obtained;OT eval requested or obtained;Remain with patient while toileting 01/25/2025 9:20 PM CDT Sho Carr RN Reason For Exception(s) bmat 4 01/26/20 9:20 PM CDT Sho Carr RN * Hygiene Question Answer Date of Assessment Author Hygiene Level of Assistance Independent 01/26/2025 9:10 AM CDT Zulema Bender RN Reason not bathed/showered with chlorhexidine gluconate (CHG) Patient refused bath/shower with chlorhexidine gluconate (CHG) 01/24/2025 4:30 PM CDT Velma Snider Toileting: Level of assistance Independent 01/25/2025 11:05 PM CDT Henrietta Beck Reason not bathed/showered Patient/family refused bath/shower 01/26/2025 9:10 AM CDT Zulema Bender RN Bath Not bathed/showered 01/26/2025 9 :10 AM FELIPET Zulema Bender RN documented as of this encounter Mental Status * Question Answer Entry Date Author Neuro (WDL) WDL 01/26/2025 8:22 AM FELIPET Jody Bender RN documented in this encounter Miscellaneous Notes * Telephone Encounter [...] cx'd. States she has been admitted to [facility] since 01/15/25 and they were going to d/c her later today so she could have her surgery tomorrow, not she is not sure when she will be d/c'd since surgery was cx'd. She will call [facility] to r/s todays appt * Telephone Encounter [...] Time 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 Source: [facility]. 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 Source: [facility]. Kleb pneumo C 10/31/2024 10/31/2024 documented as of this encounter Care Teams Mechanical Engineering Specialist Relationship Specialty Start Date End Date Edgardo Aldridge MD [address] [facility] [address] [place] [address] PCP - General Family Medicine 04/02/23 Andrei Chaves MD PhD [address] [facility] [address] [place] [address] Referring Physician General Surgery 03/17/23 Olivia Phelps MD [address] [facility] [address] [place] [address] Consulting Physician Nephrology 03/17/23 Odilon Tellez MD [address] [facility] [address] [place] [address] Referring Physician Nephrology 11/12/23 Ayaka Thomas MD [address] [facility] [address] [place] [id number] Fellow Internal Medicine 12/17/23 Yumi Jones MICROBIOLOGY COORDINATOR [address] [facility] [address] [place] [address] Nurse Practitioner Hospice and Palliative Medicine 08/16/23 Odilon Tellez MD [address] [facility] [address] [place] [address] Consulting Physician Nephrology 12/05/24 Jaimie Glez, KADY [address] [place] [address] [address] [place] [address] Dietitian Consultant 01/29/25 02/07/25 documented as of this encounter
--- OUTSIDE RECORDS SUMMARY | 2025-02-22 17:35 | XMS_ITS | Encounter Summary ---
Author Organization [facility] Address [address] [place] [address] Phone Care Team Providers Care Newspaper Subscription Solicitor Name Role Phone Andrei Chaves MD PhD Unavailable [phone] Olivia Phelps MD Unavailable [phone] Edgardo Aldridge MD Primary Care Provider Odilon Tellez MD Unavailable [phone] Ayaka Thomas MD Unavailable [phone] Yumi Jones NP Unavailable [phone] Mendel Bowling RN Unavailable [phone] Odilon Tellez MD Unavailable [phone] Mavis Barahona RN Unavailable [phone] Mahnaz Garcia RN Unavailable Jaimie Glez RN Unavailable [phone] Encounter Details Date Type Department Care Team (Late st Contact Info) Description 12/28/2024 Results Follow-Up [facility] Medicine Gastroenterology [address] [facility] Advanced Medicine 12th [place] [address] [place] [id number] Young Vasquez MD 1 [facility] [address] [place] [address] Surgical pathology Social History Tobacco Use Types Packs/Day Years Used Date Smoking Tobacco: Never Smokeless Tobacco: Never Alcohol Use Standard Drinks/Week Comments Not Currently 0 (1 standard drink = 0.6 oz pur e alcohol) [facility] Utilities Answer Date Recorded [...] often do you attend chur ch or scientology services? Never 11/07/2024 Do you belong to any clubs o r organizations such as jainism groups, unions, fraternal or athletic groups, or [...] Date Recorded PHQ-2 Total Score 0 11/01/2024 [facility] of Occupat ional Health - Occupational [...] any time in the past 12 m [facility], were you homeless or living in a [place] health care facility (including now)? 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 Source: [facility]. 08/20/2024 CP-DROP FORGE OPERATOR Comment:Added from external infection. Source: [facility]. Kleb pneumo [facility] 10/31/2024 10/31/2024 documented as of this encounter Care Teams Newspaper Subscription Solicitor Relationship Specialty Start Date End Date Edgardo lAdridge MD [address] [facility] [address] or 4 [place] [address] PCP - General Family Medicine 04/02/23 Andrei Chaves MD PhD [address] [facility] [address], [place] [address] Referring Physician General Surgery 03/17/23 Olivia Phelps MD [address] [facility] 2 or 4 [place] [address] Consulting Physician Nephrology 03/17/23 Odilon Tellez MD [address] [facility] [address] or 4 [place] [address] Referring Physician Nephrology 11/12/23 Ayaka Thomas MD [address] [facility] [address] or 4 [place] [address] Fellow Internal Medicine 12/17/23 Yumi Jones NP [address] [place] [address] [address] [place] [address] Nurse Practitioner Hospice and Palliative Medicine 08/16/23 Mendel Bowling, RN [address] [place] [address] [address] [place] [address] Survey Instrument Operator 11/07/24 01/04/25 Odilon Tellez MD [address] [facility] [address] [place] [address] Consulting Physician Nephrology 12/05/24 Mavis Barahona, RN 45[address] [facility] [address] [place] [address] Merchant Police 12/20/24 Mahnaz Garcia RN [address] [place] [address] [address] [place] [address] Survey Instrument Operator 01/15/25 01/15/25 Jaimie Glez RN [address] [place] [address] [address] [place] [address] Survey Instrument Operator 01/29/25 02/07/25 documented as of this encounter
--- OUTSIDE RECORDS SUMMARY | 2025-02-22 17:35 | XMS_ITS | Encounter Summary ---
Author Organization [facility] Address [address] [place] [address] Care Team Providers Care Marine Propulsion Technician Name Role Phone nAdrei Chaves MD PhD Unavailable [phone] Olivia Phelps MD Unavailable [phone] Edgardo Aldridge MD Primary Care Provider [phone] Odilon Tellez MD Unavailable [phone] Ayaka Thomas MD Unavailable [phone] Yumi Jones NP Unavailable [phone] Mendel Bowling RN Unavailable [phone] Odilon Tellez MD Unavailable [phone] Mavis Barahona RN Unavailable [phone] Mahnaz Garcia RN Unavailable [phone] Jaimie Glez RN Unavailable Encounter Details Date Type Department Care Team (Late st Contact Info) Description 12/29/2024 Results Follow-Up [facility] Family Medicine at [address] [place] [address] Edgardo Aldridge MD [address] [place] [address] [address] [place] [address] SCAN - RADIOLOGY/IMAGING Social History Tobacco Use Types Packs/Day Years Used Date Smoking Tobacco: Never Smokeless Tobacco: Never Alcohol Use Standard Drinks/Week Comments Not Currently 0 (1 standard drink = 0.6 oz pur e alcohol) [facility] Utilities Answer Date Recorded In [...] often do you attend chur ch or yazdanism services? Never 11/07/2024 Do you belong to any clubs o r organizations such as restoration groups, unions, fraternal or athletic groups, or [...] Date Recorded PHQ-2 Total Score 0 11/01/2024 [facility] of Occupat ional Health - Occupational [...] slept in a assisted (including now)? No 08/30/2023 PHQ-9 Answer Date [...] in the past 12 m [facility], were you homeless or living in a assisted (including now)? 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 Source: [facility]. 08/20/2024 CP-SHOWER DOORS AND PANELS FABRICATOR Comment:Added from external infection. Source: [facility]. Kleb pneumo C 10/31/2024 10/31/2024 documented as of this encounter Care Teams Marine Propulsion Technician Relationship Specialty Start Date End Date Edgardo Aldridge MD [address] [facility] 2 or 4 [place] [address] PCP - General Family Medicine 04/02/23 Andrei Chaves MD PhD [address] [facility] [address] [place] [address] Referring Physician General Surgery 03/17/23 Olivia Phelps MD [address] [facility] [address] 4 [place] [address] Consulting Physician Nephrology 03/17/23 Odilon Tellez MD [address] [facility] 2 or 4 [place] [address] Referring Physician Nephrology 11/12/23 Ayaka Thomas MD [address] [facility] [address] or 4 [place] [address] Fellow Internal Medicine 12/17/23 Yumi Jones PRODUCTION SERVICE MANAGER 1 [facility] [address] [place] [address] Nurse Practitioner Hospice and Palliative Medicine 08/16/23 Mendel Bowling, KADY [address] [place] [address] [address] [place] [address] Brew House Supervisor 11/07/24 01/04/25 Odilon Tellez MD [address] [facility] [address] [place] [address] Consulting Physician Nephrology 12/05/24 Mavis Barahona, RN 4590 [facility] [address] [place] [address] Plant Wrapper 12/20/24 Mahnaz Garcia RN [address] [place] [address] [address] [place] [address] Brew House Supervisor 01/15/25 01/15/25 Jaimie Glez RN [address] [place] [address] [address] [place] [address] Brew House Supervisor 01/29/25 02/07/25 documented as of this encounter
--- OUTSIDE RECORDS SUMMARY | 2025-02-22 17:35 | XMS_ITS | Encounter Summary ---
Author Organization [facility] Address [facility] [place] [address] Care Team Providers Care Pellet Mill Operator Name Role Phone Lay Cota MD Primary Care Provider [phone] Edgardo Aldridge MD Primary Care Provider [phone] Keely Ugalde PREFORMS LAMINATOR Unavailable [phone] Keely Ugalde PREFORMS LAMINATOR Unavailable [phone] Odilon Tellez MD Unavailable [phone] Leonardo Washburn MD Unavailable [phone] Young Vasquez MD Unavailable [phone] Andrei Chaves MD Unavailable [phone] Encounter Details Date Type Department Care Team (Late st Contact Info) Description 03/07/2024 Prep for Procedure [facility] Pre-Admission Testing [facility] [place] [address] Juan Long MD [address] [place] [address] Social History Tobacco Use Types Packs/Day Years Used Date Smoking Tobacco: Never Smokeless Tobacco: Never Alcohol Use Standard Drinks/Week Comments Not Currently 0 (1 standard drink = 0.6 oz pur e alcohol) occasionally [facility] Utilities Answer Date Recorded In the past 12 months has [employer] gas, oil, or water [employer] threatened to shut off services in your [...] any clubs o r organizations such as sabianism groups, unions, fraternal or athletic groups, or [...] Recorded Patient Health Questionnaire-2 Score 0 12/31/2022 [facility] of Occupat ional Health - Occupational [...] slept in a detention (including now)? No 03/20/2023 Housing Stability Vital [...] 1:51 PM Dunia Wilson RN Active * [place] Suicide Severity Rating Scale (Screener/Recent Self-Report) Question [...] st Contact Info) Description 05/24/2025 10:20 AM TONGUE LINING STITCHER Office Visit [facility] Multispecialty Care - [facility] [address] [place] [id number] Leonardo Washburn MD [address] [place] [address] documented as of this encounter Goals Goal Patient Goal Type Associated Problems Recent Progress Patient-Stated? Author HOME TO INDEPENDENT LIVING. General No Chiquis Alicia, RN Patient will return to prior living situation and remain independent in ADLs upon discharge from hospital Lifestyle No Jeri Lara LSW Health - patient able to perform ADLs independently Lifestyle No Latrice Marie, TELEPHOTO INSTALLER Health - patient able to perform ADLs independently Lifestyle No Latrice Marie, TELEPHOTO INSTALLER documented as of this encounter Visit Diagnoses Not on filedocumented in this encounter Additional Health Concerns Infection Onset Date Last Indicated Resolved Time MRSA Comment:04/27/23 +MRSA Urine 10/23/23 +MRSA from [facility]. Added from external infection. Source: [facility]. 02/09/24 +MRSA Nares from [facility]. 05/08/24 +MRSA Nares 10/23/2023 12/04/2024 COVID-19 Rule Out 03/12/2024 03/12/2024 03/12/2024 3:51 PM TONGUE LINING STITCHER COVID-19 Rule Out 04/04/2024 04/04/2024 04/04/2024 5:10 PM TONGUE LINING STITCHER COVID-19 Rule Out 04/24/2024 04/24/2024 04/24/2024 8:24 PM TONGUE LINING STITCHER RSV 04/24/2024 04/24/2024 05/04/2024 12:3 2 AM TONGUE LINING STITCHER COVID-19 Rule Out 05/08/2024 05/08/2024 05/08/2024 4:15 PM TONGUE LINING STITCHER Tuberculosis Rule-Out 05/09/2024 05/09/20242024 10:09 AM TONGUE LINING STITCHER COVID-19 Rule Out 05/17/2024 05/17/2024 05/17/2024 4:44 PM TONGUE LINING STITCHER Respiratory Rule Out 07/05/2024 07/05/2024 025 10:03 [...] documented as of this encounter Care Teams Pellet Mill Operator Relationship Specialty Start Date End Date Lay Cota MD PCP - General FAMILY PRACTICE 12/10/22 07/02/24 Edgardo Aldridge MD [address] [address] PCP - General FAMILY PRACTICE 07/03/24 Keely Ugalde, PREFORMS LAMINATOR [address] [place] [address] PCP - Hospice Attending 10/06/24 Keely Ugalde, PREFORMS LAMINATOR 1 [place] [address] Nurse Practitioner PALLIATIVE CARE 10/09/24 Odilon Tellez MD [address] [address] Consulting Physician NEPHROLOGY 11/17/24 Leonardo Washburn MD [address] [address] [place] [address] Consulting Physician Internal Medicine Pulmonary Disease 11/17/24 Young Vasquez MD 49[address] [facility] 8 [place] [address] GASTROENTEROLOGY 11/17/24 Andrei Chaves MD [address] [place] [address] SURGERY 11/17/24 documented as of this encounter
--- OUTSIDE RECORDS SUMMARY | 2025-02-22 17:35 | XMS_ITS | Encounter Summary ---
Author Organization [facility] Care Team Providers Care Senior Wealth Advisor Name Role Phone Unknown, Notinfile Primary Care Provider Unavail able Lay Villalta MD Primary Care Provider [phone] Tremayne Kebede MD Unavailable [phone] Georgia Mcbride FISCAL OFFICER Unavailable [phone] Miscellaneous, Not In File Unavailable Unava ilable Eun Camacho Primary Care Provider + Cony Pemberton RACKER OCTAVE BOARD Unavailable [phone] Antonette Vernon RN Unavailable [phone] Andrei Chaves MD PhD Unavailable [phone] Olivia Phelps MD Unavailable [phone] Edgardo Aldridge MD Primary Care Provider [phone] Odilon Tellez MD Unavailable [phone] Miscellaneous, Not In File Unavailable Unava ilable Ct Boggs RACKER OCTAVE BOARD Unavailable [phone] Odilon Tellez MD Unavailable [phone] Tracey Felix RN Unavailable [phone] Ayaka Thomas MD Unavailable [phone] Yumi Jones NP Unavailable [phone] Ruthy Leahy RACKER OCTAVE BOARD Unavailable Unavaila ble Feli Boggs RN Unavailable Mendel Bowling RN Unavailable [phone] Leslie Baptiste [facility] Unavailable Mendel Bowling RN Unavailable [phone] Odilon Tellez MD Unavailable [phone] Mavis Barahona RN Unavailable [phone] Mahnaz Garcia RN Unavailable [phone] Jaimie Glez RN Unavailable [phone] Encounter Details Date Type Department Care Team (Latest Contact Info) Description 06/07/2018 Orders Only [facility]INCON[facility] ProviderSotero MD [address] [place] [address] Social History Tobacco Use Types Packs/Day Years Used Date Smoking Tobacco: Never Comments Unknown Sex and Gender Information Value Date Recorded Sex Assigned at Not on file Legal Sex Female 9:16 AM NATURALIZATION EXAMINER Gender Identity Not on file Sexual Orientation Not on file documented as of this encounter Plan of Treatment Not on file documented as of this encounter Procedures Procedure Name Priority Date/Time Associated Diagnosis Comments SCAN - LABS 2018 12:00 AM NATURALIZATION EXAMINER SCAN - LABS 06/13/2018 12:00 AM NATURALIZATION EXAMINER SCAN - LABS 06/08/2018 12:00 AM NATURALIZATION EXAMINER documented in this encounter Results * SCAN - LABS (2018 12:00 AM NATURALIZATION EXAMINER) Narrative 2018 12:00 AM NATURALIZATION EXAMINER Ordered by an unspecified provider. Historical Provider Final Res ult * SCAN - LABS (06/13/2018 12:00 AM NATURALIZATION EXAMINER) Narrative 06/13/2018 12:00 AM NATURALIZATION EXAMINER Ordered by an unspecified provider. Historical Provider Final Res ult * SCAN - LABS (06/08/2018 12:00 AM NATURALIZATION EXAMINER) Narrative 06/08/2018 12:00 AM NATURALIZATION EXAMINER Ordered by an unspecified provider. Historical Provider [...] CDT COVID19 02/02/2020 02/02/2020 02/19/2020 3:05 AM NATURALIZATION EXAMINER COVID: Recovered Comment:Added based on recent COVID [...] COVID: Suspected 06/15/2023 06/15/2023 06/15/2023 5:53 PM NATURALIZATION EXAMINER C. 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 Source: [facility]. 08/20/2024 Carbapenemase, Unspecified Comment:Added from external infection. Source: [facility]. Kleb pneumo [facility] 09/23/2024 10/31/2024 3:07 PM C DT CP-FROG CATCHER Comment:Added from external infection. Source: [facility]. Kleb pneumo [facility] 10/31/2024 10/31/2024 documented as of this encounter Care Teams Senior Wealth Advisor Relationship Specialty Start Date End Date Unknown, Notinfile PCP - General 12/28/16 08/23/18 Lay Villalta MD PCP - General Family Medicine 08/24/18 07/17/21 Eun Camacho PA PCP - General Family Medicine 07/18/21 03/08/23 Edgardo Aldridge MD [address] [facility] [address] or 4 [place] [address] PCP - General Family Medicine 04/02/23 Tremayne Kebede MD Consulting Physician Gastroenterology 02/05/20 3 Georgia Mcbride FISCAL OFFICER [address] [facility] [address] [place] [address] ACO Care Pattern Repair Person 11/28/20 12/19/20 Miscellaneous, Not In File 07/17/21 03/16/23 Cony Pemberton LCSW 4516 [facility] ([facility]) Mailstop [phone] [place] [address] SHOP Outpatient Post Doc Fellowship 12/07/22 12/07/22 Antonette Vernon RN 45[address] [facility] [address] [place] [address] SHOP Outpatient Post Doc Fellowship 12/08/22 01/05/23 [place] PhD [address] [place] [address] [address] [place] [address] Referring Physician General Surgery 03/17/23 Olivia Phelps MD [address] [facility] [address] or [address] [place] [address] Consulting Physician Nephrology 03/17/23 Odilon Tellez MD [address] [facility] [address] or [address] [place], [place] [address] Consulting Physician Nephrology 05/01/23 12/04/24 Miscellaneous, Not In File 07/08/23 01/24/24 Ct Boggs RACKER OCTAVE BOARD [address] [place] [address] ([facility]) Mailstop [phone] [place] [address] SHOP Outpatient Post Doc Fellowship 07/09/23 08/05/23 Odilon Tellez MD [address] [facility] [address] or [address] [place] [address] Referring Physician Nephrology 11/12/23 Tracey Felix, KADY [address] [facility] [address] [place] [address] Heel Builder 11/12/23 11/17/23 Ayaka Thomas MD [address] [facility] [address] [place] [address] Fellow Internal Medicine 12/17/23 Yumi Jones NP [address] [place] [address] [facility] [address] [place] [address] Nurse Practitioner Hospice and Palliative Medicine 08/16/23 Ruthy Leahy LCSW Account Manager Education 12/31/23 02/22/24 Feli Boggs RN [address] [place] [address] [address] [place] [address] Bandage Winding Machine Operator 12/31/23 01/02/24 Mendel Bowling RN [address] [place] [address] [address] [place] [address] Bandage Winding Machine Operator 01/03/24 03/23/24 Leslie Baptiste [address] [place] [address] Pharmacist Pharmacy 01/13/24 02/03/24 Mendel Bowling RN [address] [place] [address] [address] [place] [address] Bandage Winding Machine Operator 11/07/24 01/04/25 Odilon Tellez MD [address] [facility] [address] [place] [address] Consulting Physician Nephrology 12/05/24 Mavis Barahona, RN 45[address] [facility] [address]01 [place] [address] Heel Builder 12/20/24 01/08/25 Mahnaz Garcia RN [address] [place] [address] [address] [place] [address] Bandage Winding Machine Operator 01/15/25 01/15/25 Jaimie Glez, KADY [address] [place] [address] [address] [place] [address] Bandage Winding Machine Operator 01/29/25 02/07/25 documented as of this encounter
--- OUTSIDE RECORDS SUMMARY | 2025-02-22 17:35 | XMS_ITS | Encounter Summary ---
Author Organization [facility] Facility Care Team Providers Care Nailer Hand Name Role Phone Unknown, Notinfile Primary Care Provider Unavail able Lay Villalta MD Primary Care Provider [phone] Tremayne Kebede MD Unavailable [phone] Georgia Mcbride PHLEBOTOMY SERVICES TECHNICIAN Unavailable [phone] Miscellaneous, Not In File Unavailable Unava ilable Eun Camacho Primary Care Provider + Cony Pemberton BREAST PULLER Unavailable [phone] Antonette Vernon RN Unavailable [phone] Andrei Chaves MD PhD Unavailable [phone] Olivia Phelps MD Unavailable [phone] Edgardo Aldridge MD Primary Care Provider [phone] Odilon Tellez MD Unavailable [phone] Miscellaneous, Not In File Unavailable Unava ilable Ct Boggs BREAST PULLER Unavailable [phone] Odilon Tellez MD Unavailable [phone] Tracey Felix RN Unavailable [phone] Ayaka Thomas MD Unavailable [phone] Yumi Jones NP Unavailable [phone] TosinRuthy wilder BREAST PULLER Unavailable Unavaila ble Feli Boggs RN Unavailable [phone] Mendel Bowling RN Unavailable [phone] Leslie Baptiste [facility] Unavailable Mendel Bowling RN Unavailable [phone] Odilon Tellez MD Unavailable [phone] Mavis Barahona RN Unavailable [phone] Mahnaz Garcia RN Unavailable [phone] Jaimie Glez RN Unavailable [phone] Encounter Details Date Type Department Care Team (Latest Contact Info) Description 06/10/2018 Orders Only [facility]G CLINCONV Provider, MD Sotero [address] [place] [address] Social History Tobacco Use Types Packs/Day Years Used Date Smoking Tobacco: Never Comments Unknown Sex and Gender Information Value Date Recorded Sex Assigned at Not on file Legal Sex Female 9:16 AM RESTAURANT CREW PERSON Gender Identity Not on file Sexual Orientation Not on file documented as of this encounter Plan of Treatment Not on file documented as of this encounter Procedures Procedure Name Priority Date/Time Associated Diagnosis Comments SCAN - LABS 06/15/2018 12:00 AM RESTAURANT CREW PERSON documented in this encounter Results * SCAN - LABS (06/15/2018 12:00 AM RESTAURANT CREW PERSON) Narrative 06/15/2018 12:00 AM RESTAURANT CREW PERSON Ordered by an unspecified provider. Historical Provider [...] CDT COVID19 02/02/2020 02/02/2020 02/19/2020 3:05 AM RESTAURANT CREW PERSON COVID: Recovered Comment:Added based on recent COVID [...] COVID: Suspected 06/15/2023 06/15/2023 06/15/2023 5:53 PM RESTAURANT CREW PERSON C. 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 Source: [facility]. 08/20/2024 Carbapenemase, Unspecified Comment:Added from external infection. Source: [facility]. Kleb pneumo KPC 09/23/2024 10/31/2024 3:07 PM C DT CP-TRACK DRESSER Comment:Added from external infection. Source: [facility]. Kleb pneumo KPC 10/31/2024 10/31/2024 documented as of this encounter Care Teams Nailer Hand Relationship Specialty Start Date End Date Unknown, Notinfile PCP - General 12/28/16 08/23/18 Lay Villalta MD PCP - General Family Medicine 08/24/18 07/17/21 Eun Camacho PA PCP - General Family Medicine 07/18/21 03/08/23 Edgardo Aldridge MD [address] [facility] 2 or 4 [place] [address] PCP - General Family Medicine 04/02/23 Tremayne Kebede MD Consulting Physician Gastroenterology 02/05/20 3 Georgia Mcbride LPN [address] [facility] [address] [place] [address] ACO Care Mold Swabber 11/28/20 12/19/20 Miscellaneous, Not In File 07/17/21 03/16/23 Cony Pemberton LCSW [address] [facility] ([facility]) Mailstop [phone] [place] [address] SHOP Outpatient Farm Management Adviser 12/07/22 12/07/22 Antonette Vernon, KADY [address] [place] [address] SHOP Outpatient Farm Management Adviser 12/08/22 01/05/23 Andrei Chaves MD PhD [address] [facility] [address] [place] [address] Referring Physician General Surgery 03/17/23 Olivia Phelps MD [address] [address] [place], [place] [address] Consulting Physician Nephrology 03/17/23 Odilon Tellez MD [address] [place], [place] [address] Consulting Physician Nephrology 05/01/23 12/04/24 Miscellaneous, Not In File 07/08/23 01/24/24 Ct Boggs, [facility] [address] [facility] ([facility]) Mailstop [phone] [place] [address] SHOP Outpatient Farm Management Adviser 07/09/23 08/05/23 Odilon Tellez MD [address] [place], [place] [address] Referring Physician Nephrology 11/12/23 Tracey Felix, KADY [address] [place] [address] Business Manager 11/12/23 11/17/23 Ayaka Thomas MD [address] [facility] [address] [place] [address] Fellow Internal Medicine 12/17/23 Yumi Jones NP [address] [facility] [address] [place] [address] Nurse Practitioner Hospice and Palliative Medicine 08/16/23 Ruthy Leahy LCSW Continuous Pickling Line Pickler 12/31/23 02/22/24 Feli Boggs, RN [address] [place] [address] [address] [place] [address] Establishment Guide 12/31/23 01/02/24 Mendel Bowling, KADY [address] [place] [address] [address] [place] [address] Establishment Guide 01/03/24 03/23/24 Leslie Baptiste, [address] [place] [address] Pharmacist Pharmacy 01/13/24 02/03/24 Mendel Bowling, KADY [address] [place] [address] [address] [place] [address] Establishment Guide 11/07/24 01/04/25 Odilon Tellez MD [address] [facility] [address] [place] [address] Consulting Physician Nephrology 12/05/24 Mavis Barahona, RN [address] [facility] [address] [place] [address] Business Manager 12/20/24 01/08/25 Mahnaz Garcia, RN [address] [place] [address] [address] [place] [address] Establishment Guide 01/15/25 01/15/25 Jaimie Glez RN [address] [place] [address] [address] [place] [address] Establishment Guide 01/29/25 02/07/25 documented as of this encounter
--- OUTSIDE RECORDS SUMMARY | 2025-02-22 18:16 | XMS_ITS ---
Author Organization [facility] Address [address] [place] [address] Phone Care Team Providers Care Human Resources Training Manager Name Role Phone Eun Camacho Primary Care Provider Lindsey Chronic Condition Monitoring Status:Enrolled (Active) Start date:03/08/2024 Enrollment date:03/08/2024 Related social drivers of health:Intimate Partner Violence, Social Connections, Financial Resource Strain, Depression, Stress, Physical Activity, Food Insecurity, Transportation Needs, Housing Stability, Utilities Continued Care and Services Coordination
--- OUTSIDE RECORDS SUMMARY | 2025-02-22 18:16 | XMS_ITS | Clinical Summary ---
Author Organization [facility] Address [address] [facility] [place] [address] Phone Care Team Providers Care Tractor Mechanic Name Role Phone Unavailable Primary Care Provider [...] now. 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 operator Last Assessment & Plan: -Brittle DM1 -Home [...] (PF) 02/14/2021 MMR 12/03/2000,10/12/1996 PPD Test 05/22/2016 DeepFlex COVID-19 Vaccine 01/24/2021 Poliovirus Trivalent Vaccine , [...] PM CDT Legal Sex Female 12:26 PM DOPER OPERATOR Gender Identity Female 11/05/2020 3:34 PM CDT Sexual Orientation Straight 11/05/2020 3: 34 PM CDT Last Filed Vital Signs Vital Sign Reading Time Taken Comments Blood Pressure 138/78 06/24/2022 7:47 PM DOPER OPERATOR Pulse 95 06/24/2022 7:47 PM DOPER OPERATOR Temperature 37 C (98.6 F) 06/24/2022 6:25 PM DOPER OPERATOR Respiratory Rate 22 06/24/2022 7:47 PM DOPER OPERATOR Oxygen Saturation 100% 06/24/2022 7:47 PM DOPER OPERATOR Inhaled Oxygen Concentration - - Weight 54.4 kg (120 lb) 06/24/2022 4:51 PM DOPER OPERATOR Height 162.6 cm (5' 4) 12/03/2021 [...] COMPREHENSIVE METABOLIC PANEL STAT 06/24/2022 5:05 PM DOPER OPERATOR MICROALBUMIN/CREATININ E URINE RANDOM Routine 02/12/2021 3:35 PM CDT Type 1 diabetes mellitus with diabetic neuropathy (HCC ) HEMOGLOBIN A1C Routine 01/16/2021 3:32 AM CDT HEPATITIS PANEL, ACUTE STAT 8:38 PM CDT from Last 3 Months or Most Recently Relevant to Health Maintenance Results * (ABNORMAL) Comprehensive metabolic panel (06/24/2022 5:05 PM DOPER OPERATOR) Sodium 139 135 - 145 mmol/L 06/24/2022 5:38 PM DOPER OPERATOR [facility] Potassium 4.4 3.5 - 5.0 mmol/L 06/24/2022 5:38 PM [facility] Chloride 108(H) 98 - 107 mmol/L 06/24/2022 5:38 PM [facility] Carbon Dioxide 23 21 - 32 mmol/L 06/24/2022 5:38 PM [facility] Anion Gap 8 6 - 16 mmol/L 06/24/2022 5:38 PM [facility] Glucose 421(HH) 70 - 110 mg/dL 06/24/2022 5:38 PM [facility] BUN 33(H) 7 - 18 mg/dL 06/24/2022 5:38 PM [facility] Creatinine 2.70(H) 0.60 - 1.30 mg/dL 06/24/2022 5:38 PM [facility] BUN/Creatinine Ratio 12.2 11.7 - 13.9 06/24/2022 5:38 PM [facility] Calcium 8.9 8.5 - 10.1 mg/dL 06/24/2022 5:38 PM [facility] Comment:Calcium measurements are adversely affected by the use of Omniscan during MRI. Analysis of calcium is not recommended for 12 to 24 hours after the use of the contrast agent. Protein total 7.5 6.4 - 8.2 g/dL 06/24/2022 5:38 PM [facility] Albumin 2.8(L) 3.4 - 5.0 g/dL 06/24/2022 5:38 PM [facility] Bilirubin Total 0.2 0.0 - 1.0 mg/dL 06/24/2022 5:38 PM [facility] Comment:Use of this assay is not recommended for patients undergoing treatment with eltrombopag due to the potential for falsely elevated results. AST 39(H) 7 - 34 U/L 06/24/2022 5:38 PM [facility] ALT 77(H) 16 - 62 U/L 06/24/2022 5:38 PM [facility] ALP 224(H) 50 - 136 U/L 06/24/2022 5:38 PM [facility] eGFR non- 21.1(L) >=60.0 mL/min/1.7 3m2 06/24/2022 5:38 PM [facility] eGFR 25.6(L) >=60.0 mL/min/1.7 3m2 06/24/2022 5:38 PM [facility] Comment:The estimated GFR is based on the Modification of Diet in Renal Disease Study (MDRD) equation using average adult body surface area. This equation has not been validated for use with age groups below 18 or over 70, women, patients with serious co-morbid conditions, or persons with extremes of body size, muscle mass or nutritional status. Blood 06/24/2022 5:05 PM DOPER OPERATOR 06/24/2022 5:05 PM DOPER OPERATOR us Cony Alexander DO LAB BLOOD ORDERABLES Fin al Result Performing Organization Address City/[facility]/ZIP Co de Phone Number [facility] [address] [address] * (ABNORMAL) Microalbumin/Creatinine Urine (02/12/2021 3:35 PM [...] Fan DO URINE ORDERABLES Final Re sult [facility] [address] [address] * (ABNORMAL) Hemoglobin A1c (01/16/2021 3:32 AM CDT) Hemoglobin A1c >14.0(H) 4.5 - 6.2 % 01/16/2021 7:05 AM CDT [facility] Blood Venipuncture / Unknown 01/16/2021 3:32 AM CDT 01/16/2021 3:34 AM CDT us Betty Johansen MD LAB BLOOD ORDERABLES Fin al Result [facility] [address] [place] [address] * Hepatitis Panel, Acute (08/10/2020 8:38 PM [...] Unless otherwise indicated, all testing performed at: [facility] [address] [place] [address] Chief Arson Division: IZA GILES M.D. [facility]# [id number] Blood Venipuncture / Unknown 08/10/2020 8:38 PM CDT 08/10/2020 8:44 PM CDT us Xin Alejandre MD LAB BLOOD ORDERABLES Final Result [address] [address] from Last 3 Months or Most Recently Relevant to Health Maintenance Insurance MEDICAID [place] Advance Directives For more information, please contact: [phone] (7AM - 5PM [facility], 7 days a week) * Full [...]
--- OUTSIDE RECORDS SUMMARY | 2025-02-22 18:16 | XMS_ITS | Encounter Summary ---
Author Organization [facility] Facility Care Team Providers Care Coal Washer Name Role Phone Unknown, Notinfile Primary Care Provider Unavail able Lay Villalta MD Primary Care Provider [phone] Tremayne Kebede MD Unavailable [phone] Georgia Mcbride VICE PRESIDENT PAYMENT Unavailable [phone] Miscellaneous, Not In File Unavailable Unava ilable Eun Camacho Primary Care Provider + Cony Pemberton DISTANCE LEARNING PROGRAM COORDINATOR Unavailable [phone] Antonette Vernon RN Unavailable [phone] Andrei Chaves MD PhD Unavailable [phone] Olivia Phelps MD Unavailable [phone] Edgardo Aldridge MD Primary Care Provider [phone] Odilon Tellez MD Unavailable [phone] Miscellaneous, Not In File Unavailable Unava ilable Ct Boggs DISTANCE LEARNING PROGRAM COORDINATOR Unavailable [phone] Odilon Tellez MD Unavailable [phone] Tracey Felix RN Unavailable [phone] Ayaka Thomas MD Unavailable [phone] Yumi Jones NP Unavailable [phone] TosinRogersRuthy DISTANCE LEARNING PROGRAM COORDINATOR Unavailable Unavaila ble Feli Boggs RN Unavailable [phone] Mendel Bowling RN Unavailable [phone] Leslie Baptiste [facility] Unavailable Mendel Bowling RN Unavailable [phone] Odilon Tellez MD Unavailable [phone] Mavis Barahona RN Unavailable [phone] Mahnaz Garcia RN Unavailable [phone] Jaimie Glez RN Unavailable [phone] Encounter Details Date Type Department Care Team (Latest Contact Info) Description 04/07/2016 Orders Only MMG CLINCONV Provider, MD Sotero [address] [place] [address] Social History Tobacco Use Types Packs/Day Years Used Date Smoking Tobacco: Never Comments Unknown Sex and Gender Information Value Date Recorded Sex Assigned at Not on file Legal Sex Female 9:16 AM PROGRAM REVIEW DIRECTOR Gender Identity Not on file Sexual Orientation Not on file documented as of this encounter Plan of Treatment Not on file documented as of this encounter Procedures Procedure Name Priority Date/Time Associated Diagnosis Comments CARDIOLOGY REPORT 04/07/2016 12: 00 AM PROGRAM REVIEW DIRECTOR documented in this encounter Results * CARDIOLOGY REPORT (04/07/2016 12:00 AM PROGRAM REVIEW DIRECTOR) Anatomical Region Laterality Modality Other Narrative 04/07/2016 12:00 AM PROGRAM REVIEW DIRECTOR Ordered by an unspecified provider. Historical [...] CDT COVID19 02/02/2020 02/02/2020 02/19/2020 3:05 AM PROGRAM REVIEW DIRECTOR COVID: Recovered Comment:Added based on recent [...] COVID: Suspected 06/15/2023 06/15/2023 06/15/2023 5:53 PM PROGRAM REVIEW DIRECTOR C. difficile suspected 06/24/2023 06/24/202306/26 6:03 [...] CDT 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 Source: [facility]. 08/20/2024 Carbapenemase, Unspecified Comment:Added from external infection. Source: [facility]. Kleb pneumo KPC 09/23/2024 10/31/2024 3:07 PM C DT CP-DIAPER MACHINE TENDER Comment:Added from external infection. Source: [facility]. Kleb pneumo KPC 10/31/2024 10/31/2024 documented as of this encounter Care Teams Coal Washer Relationship Specialty Start Date End Date Unknown, Notinfile PCP - General 12/28/16 08/23/18 Lay Villalta MD PCP - General Family Medicine 08/24/18 07/17/21 Eun Camacho PA PCP - General Family Medicine 07/18/21 03/08/23 Edgardo Aldridge MD [address] [facility] 2 or 4 [place] [address] PCP - General Family Medicine 04/02/23 Tremayne Kebede MD Consulting Physician Gastroenterology 02/05/20 3 Georgia Mcbride LPN [address] [place] [address] [address] [place] [address] ACO Care Associate Professor Of Archaeology 11/28/20 12/19/20 Miscellaneous, Not In File 07/17/21 03/16/23 Cony Pemberton, [facility] [address] [facility] ([facility] Mailstop [phone] [place] [address] SHOP Outpatient Turbine Mechanic 12/07/22 12/07/22 Antonette Vernon, KADY [address] [place] [address] SHOP Outpatient Turbine Mechanic 12/08/22 01/05/23 Andrei Chaves MD PhD [address] [facility] [address] [place] [address] Referring Physician General Surgery 03/17/23 Olivia Phelps MD [address] [employer] [address] [place], [place] [address] Consulting Physician Nephrology 03/17/23 Odilon Tellez MD [address] [employer] [address] [place], [place] [address] Consulting Physician Nephrology 05/01/23 12/04/24 Miscellaneous, Not In File 07/08/23 01/24/24 Ct Boggs, [facility] [address] [facility] ([facility]) Mailstop [phone] [place] [address] SHOP Outpatient Turbine Mechanic 07/09/23 08/05/23 Odilon Tellez MD [address] [employer] [address] [place], [place] [address] Referring Physician Nephrology 11/12/23 Tracey Felix, KADY [address] [place] [address] Animal Cytologist 11/12/23 11/17/23 Ayaka Thomas MD [address] [facility] [address] [place] [address] Fellow Internal Medicine 12/17/23 Yumi Jones NP [address] [facility] [address] [place] [address] Nurse Practitioner Hospice and Palliative Medicine 08/16/23 Ruthy Leahy LCSW Nursing Home Administrator 12/31/23 02/22/24 Feli Boggs, KADY [address] [place] [address] [address] [place] [address] Mainframe Software Developer 12/31/23 01/02/24 Mendel Bowling, KADY [address] [place] [address] [address] [place] [address] Mainframe Software Developer 01/03/24 03/23/24 Leslie Baptiste, [address] [place] [address] Pharmacist Pharmacy 01/13/24 02/03/24 Mendel Bowling, KADY [address] [place] [address] [address] [place] [address] Mainframe Software Developer 11/07/24 01/04/25 Odilon Tellez MD [address] [facility] [address] [place] [address] Consulting Physician Nephrology 12/05/24 Mavis Barahona, KADY [address] [facility] [address] [place] [address] Animal Cytologist 12/20/24 01/08/25 Mahnaz Garcia, KADY [address] [place] [address] [address] [place] [address] Mainframe Software Developer 01/15/25 01/15/25 Jaimie Glez RN [address] [place] [address] [address] [place] [address] Mainframe Software Developer 01/29/25 02/07/25 documented as of this encounter
--- OUTSIDE RECORDS SUMMARY | 2025-02-22 18:16 | XMS_ITS | Encounter Summary ---
Author Organization [facility] Address [facility] [place] [address] Care Team Providers Care Knife Setter Assembler Name Role Phone Lay Cota MD Primary Care Provider [phone] Eun Camacho Primary Care Provider [phone] None, Provider Primary Care Provider Unavaila [facility] Lay Cota MD Primary Care Provider [phone] Edgardo Aldridge MD Primary Care Provider [phone] Keely Ugalde MANAGER STRATEGIC Unavailable [phone] Keely Ugalde MANAGER STRATEGIC Unavailable [phone] Odilon Tellez MD Unavailable [phone] Leonardo Washburn MD Unavailable [phone] Young Vasquez MD Unavailable [phone] Andrei Chaves MD Unavailable [phone] Encounter Details Date Type Department Care Team (Late st Contact Info) Description 01/03/2020 Telephone [facility] Med/Surg [address] [place] [address] Re Yeager CNA Social History [...] st Contact Info) Description 05/24/2025 10:20 AM AEROSPACE MEDICINE PHYSICIAN Office Visit [facility] [address] [place] [address] Leonardo Washburn MD [address] [place] [address] documented as of this encounter Goals Goal [...] Rule Out 02/21/2023 02/21/2023 02/21/2023 11:06 AM AEROSPACE MEDICINE PHYSICIAN MRSA Comment:04/27/23 +MRSA Urine 10/23/23 +MRSA from [facility]. Added from external infection. Source: [facility]. 02/09/24 +MRSA Nares from [facility]. 05/08/24 +MRSA Nares 10/23/2023 12/04/2024 COVID-19 Rule Out 03/12/2024 03/12/2024 03/12/2024 3:51 PM AEROSPACE MEDICINE PHYSICIAN COVID-19 Rule Out 04/04/2024 04/04/2024 04/04/2024 5:10 PM AEROSPACE MEDICINE PHYSICIAN COVID-19 Rule Out 04/24/2024 04/24/2024 04/24/2024 8:24 PM AEROSPACE MEDICINE PHYSICIAN RSV 04/24/2024 04/24/2024 05/04/2024 12:3 2 AM AEROSPACE MEDICINE PHYSICIAN COVID-19 Rule Out 05/08/2024 05/08/2024 05/08/2024 4:15 PM AEROSPACE MEDICINE PHYSICIAN Tuberculosis Rule-Out 05/09/2024 05/09/20242024 10:09 AM AEROSPACE MEDICINE PHYSICIAN COVID-19 Rule Out 05/17/2024 05/17/2024 05/17/2024 4:44 PM AEROSPACE MEDICINE PHYSICIAN Respiratory Rule Out 07/05/2024 07/05/2024 025 10:03 [...] documented as of this encounter Care Teams Knife Setter Assembler Relationship Specialty Start Date End Date Lay Cota MD PCP - General FAMILY PRACTICE 02/19/19 10/26/22 Eun Camacho PA PCP - General PHYSICIAN GROUND OPERATIONS SUPERVISOR 10/27/22 11/18/22 None, Simona, PCP - General UNKNOWN PHYSICIAN SPECIALTY 11/19/22 12/09/22 Lay Cota MD PCP - General FAMILY PRACTICE 12/10/22 07/02/24 Edgardo Aldridge MD [address] [facility] [address] [place] [address] PCP - General FAMILY PRACTICE 07/03/24 Keely Ugalde APRN [address] [place] [address] PCP - Hospice Attending 10/06/24 Keely Ugalde APRN 1 [place] [address] Nurse Practitioner PALLIATIVE CARE 10/09/24 Odilon Tellez MD [address] [address] Consulting Physician NEPHROLOGY 11/17/24 Leonardo Washburn MD [address] [address] Consulting Physician Internal Medicine Pulmonary Disease 11/17/24 Young Vasquez MD [address] [facility] [address] [place] [address] GASTROENTEROLOGY 11/17/24 Andrei Chaves MD [address] [facility] [address] [place] [address] SURGERY 11/17/24 documented as of this encounter
--- OUTSIDE RECORDS SUMMARY | 2025-02-22 18:16 | XMS_ITS | Encounter Summary ---
Author Organization [facility] Address [address] [place] [address] Phone Care Team Providers Care Alliance Director Name Role Phone Shown, Devang Alegre DO Primary Care Provider [phone] Encounter Details Date Type Department Care Team (Late st Contact Info) Description 12/03/2021 Telephone [facility] [address] [place] [phone] Leslie Pruitt Social History Tobacco Use Types Packs/Day Years Used Date Smoking Tobacco: Never Smokeless Tobacco: Never Alcohol Use Standard Drinks/Week Comments No 0 (1 standard drink = 0.6 oz pur e alcohol) Comments No Sex and Gender Information Value Date Recorded Sex Assigned at Female 11/05/2020 3:34 PM CDT Legal Sex Female 12:26 PM GARMENT TAG STRINGER Gender Identity Female 11/05/2020 3:34 PM CDT [...] d for the patient 03/29/2021 7:04 AM GARMENT TAG STRINGER documented as of this encounter Care Teams Alliance Director Relationship Specialty Start Date End Date Shown, Devang Alegre DO [address] [address] PCP - General Family Medicine 09/11/21 12/06/24 documented as of this encounter
--- OUTSIDE RECORDS SUMMARY | 2025-02-22 18:16 | XMS_ITS | Clinical Summary ---
Author Organization [facility] Address [address] [place] [address] Care Team Providers Care Beam Dyer Name Role Phone Edgardo Aldridge MD Primary Care Provider [phone] Keely Ugalde ELECTRIC MOTOR ASSEMBLER Unavailable [phone] Keely Ugalde ELECTRIC MOTOR ASSEMBLER Unavailable [phone] Odilon Tellez MD Unavailable [phone] Leonardo Washburn MD Unavailable [phone] Young Vasquez MD Unavailable [phone] Andrei Chaves MD Unavailable [phone] Allergies Active Allergy Reactions Criticality Noted Date [...] Unspecified hydronephrosis 10/26/2022 Pulmonary hypertension, unspecified 10/26/2022 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 Recently admitted at [facility] but left 2-3 days prior to admission here as she says she was unhappy with her care. Nausea recurred this am but no vomiting. Will resume IVF if she doesn't tolerate lunch. I reviewed some records from Care Everywhere and found a gastric emptying study done in [place] which was normal, though this doesn't exclude [...] CDT - 12/28/2024 7:12 PM CDT Emergency [facility] [place] [address] Gregory Diaz MD Abdominal Pain Discharge Disposition: Left Against Medical Advice 12/28/2024 Travel 12/24/2024 6:48 PM CDT - 12/24/2024 8:50 PM CDT Emergency [facility] Emergency Room [address] [place] [id number] Starr Porter MD Chest Pain; Abdominal Pain [...] CDT - 12/18/2024 5:34 PM CDT Emergency [facility] Emergency Room [address] [place] [id number] Cristine Rey MD Vomiting; Nausea Discharge Disposition: Home or Self Care (Routine Discharge) 12/18/2024 Travel 12/17/2024 4:22 PM CDT - 12/17/2024 9:17 PM CDT Emergency [facility] [place] [address] Devyn Guadarrama DO Chest Pain; Vomiting Discharge Disposition: Left Against Medical Advice 12/17/2024 Travel 12/13/2024 Results Follow-Up [facility] Medical [facility] Multispecialty Care - [facility] [address], [address] [place] [address] Leonardo Washburn MD Complete PFT (pre/post Daljit, Lung Vol, Diff Capacity) ([id number], [id number], [id number], [id number]) 12/10/2024 1:20 PM CDT - 12/14/2024 4:45 PM CDT Hospital Encounter [facility] Med/Surg 3rd [place] [address] Hung Healy MD Lamonica, Kandace C, MD Suresh, MD Charlie Alamo, MD Gilson Gipson, Kristen Pierson, EDILMA Borja, Catherine Lipscomb, SUPERVISOR ADULT EDUCATION Vomiting; Chest Pain Discharge Disposition: Home or Self Care (Routine Discharge) 12/10/2024 Travel 12/08/2024 1:35 PM CDT - 12/08/2024 11:59 PM CDT Hospital Encounter [facility] [place] [address] Leonardo Washburn MD Discharge Disposition: Home or Self Care (Routine Discharge) 12/08/2024 11:00 AM CDT Office Visit [facility] Physical Therapy [address] [place] [address] Kya Arias, PT Edgardo Aldridge MD Leach, Danielle N, CHILD CARE EDUCATION COORDINATOR Weakness (10/04) 12/08/2024 Scan HEALTH INFO SRVCS Scanned, Doc [facility] PFT (SCAN) 12/08/2024 Hospital [facility] [place] [address] Reva Campbell, DILSHAD Follow Up Call ([facility] 12/03-12/06/24) 12/08/2024 Travel 12/04/2024 Hospital [place] [address] Reva Campbell AUTOMOBILE REPOSSESSOR Follow Up Call ([place] 11/30-12/01/24) 12/03/2024 11:04 PM CDT - 12/06/2024 1:56 PM CDT Hospital Encounter [facility] Med/Surg 3rd [place] [address] Raul Cartagena MD,PHD Nadine Ayala, Lily Ji MD Tran, Isaac T, MD Vomiting Discharge Disposition: Home or Self Care (Routine Discharge) 12/03/2024 Travel 11/30/2024 7:24 AM CDT - 12/01/2024 3:10 PM CDT Hospital Encounter [facility] [place] [address] Julissa Lawson MD Bismack, Gregory T, MD Chest Pain; Vomiting Discharge Disposition: Home or Self Care (Routine Discharge) 11/30/2024 Results [facility] [address] Leonardo Washburn MD Pathology, CYTOLOGY GENERIC, CULTURE, TISSUE W/GRAM STAIN, Additional followed-up results: 8 11/29/2024 9:54 AM CDT - 11/29/2024 2:06 PM CDT Emergency [facility] [place] [address] Julissa Lawson MD Abdominal Pain Discharge Disposition: Home or Self Care (Routine Discharge) 11/29/2024 Travel 11/28/2024 Hospital Follow-up Call [facility] [place] [address] Reva Campbell LPN Follow Up Call ([facility] 11/23-11/25/24) 11/27/2024 9:45 AM CDT Office Visit [facility] Physical Therapy [address], [place] [id number] Kya Arias, PT Shellie Sanchez, SUPERVISOR ADULT EDUCATION Edgardo Aldridge MD Leach, Yareli Anna, CHILD CARE EDUCATION COORDINATOR Weakness (09/03) 11/27/2024 Telephone [facility] Medical Group Multispecialty Care - [facility] [address] [place] [id number] Leonardo Washburn MD Results 11/27/2024 Travel 11/23/2024 5:12 AM CDT - 11/25/2024 3:56 PM CDT Hospital Encounter [facility] Med/Surg 5th [place] [address] Julissa Lawson MD Jerkovich, Adria, MD Islam, [...] from your doctor or pharmacy? Never 11/23/2024 [employer] Utilities Answer Date Recorded In the past 12 months has e [employer], [employer], oil, or water [employer] threatened to shut off services in [...] attend chur ch or nondenominational services? Never 11/23/2024 Do you belong to [...] Recorded Patient Health Questionnaire-2 Score 0 11/23/2024 [facility] of Occupat ional [...] place to sleep or slept in a retirement (including now)? No 03/20/2023 Housing Stability Vital Sign Answer Pablo e Recorded In the last 12 months, was t here a time when you were not able to pay the mortgage or rent on time? No 12/10/2024 In the past 12 months, how m any times have you moved where you were living? 0 12/10/2024 At any time in the past 12 [facility], were you homeless or living in a retirement (including now)? 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 - patient able to perform ADLs independently Lifestyle No Latrice Marie PRINT ROOM WORKER Patient will return to prior living situation and remain independent in ADLs upon discharge from hospital Lifestyle No Joanne Luu 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 No ectopy us Gregory Diaz MD [place] [facility] Final Result * (ABNORMAL) URINALYSIS (12/28/2024 6:22 PM CDT) Only the most recent of4 resultswithin the time period is included. SPECIMEN TYPE URINE CLEAN CATCH 12/28/2024 6:24 PM CDT [facility] COLOR (U) COLORLESS 12/28/2024 6:55 PM CDT [facility] TRANSPARENCY CLEAR 12/28/2024 6:55 PM CDT [facility] SPECIFIC GRAVITY (U) 1.020 1.001 - 1.030 12/28/2024 6:55 PM CDT [facility] U PH 7.0 5.0 - 9.0 12/28/2024 6:55 PM CDT [facility] LEUKOCYTES (U) NEGATIVE NEGATIVE 12/28/2024 6:55 PM CDT [facility] NITRITES NEGATIVE NEGATIVE 12/28/2024 6:55 PM CDT [facility] PROTEIN RANDOM (U) 300(H) <30 MG/DL 12/28/2024 6:55 PM CDT [facility] GLUCOSE (U) >1000(A) NORMAL MG/DL 12/28/2024 6:55 PM CDT [facility] KETONES MG/DL (U) 20(A) NEGATIVE MG/DL 12/28/2024 6:55 PM CDT [facility] Comment: Successful Call: DANIEL called 12/28/2024 06:56 PM to EMERGENCY ROOM ([id number]/DAY, JD) by [id number]. UROBILINOGEN NORMAL NORMAL MG/DL 12/28/2024 6:55 PM CDT [facility] BILIRUBIN (U) NEGATIVE NEGATIVE MG/DL 12/28/2024 6:55 PM CDT [facility] BLOOD (U) 3+(A) NEGATIVE 12/28/2024 6:55 PM CDT [facility] MUCUS RARE /LPF 12/28/2024 6:55 PM CDT [facility] WBC/HPF 26(H) <6 /HPF 12/28/2024 6:55 PM CDT [facility] RBC/HPF >100(H) <6 /HPF 12/28/2024 6:55 PM CDT [facility] BACTERIA (U) RARE(A) NONE /HPF 12/28/2024 6:55 PM CDT [facility] SQUAMOUS EPITHELIALS RARE /HPF 12/28/2024 6:55 PM CDT [facility] URINE SPECIMEN OBTAINED BY CLEAN CATCH PROCEDURE / Unknown 12/28/2024 6:22 PM CDT Gregory Diaz MD URINE ORDERABLES Final Result [facility] [address] [place] [address], [place] [phone] * (ABNORMAL) COMPREHENSIVE METABOLIC PANEL (12/28/2024 6:22 PM CDT) Only the most recent of13 resultswithin the time period is included. GLUCOSE 228(H) 70 - 99 MG/DL 12/28/2024 7:15 PM CDT [facility] BUN 29(H) 7 - 18 MG/DL 12/28/2024 7:15 PM CDT [facility] CREATININE S/P/B 9.14(HH) 0.55 - 1.02 MG/DL 12/28/2024 7:15 PM CDT [facility] Comment: Critical Result(s) Called at: 19:14:15 on 12/28/2024 by: MARION CAPONE to and read back by:DESIREE INMAN SODIUM S/P/B 137 136 - 145 MMOL/L 12/28/2024 7:15 PM CDT [facility] POTASSIUM S/P/B 3.3(L) 3.5 - 5.1 MMOL/L 12/28/2024 7:15 PM CDT [facility] CHLORIDE S/P/B 105 97 - 115 MMOL/L 12/28/2024 7:15 PM CDT [facility] CO2 20.5(L) 21 - 32 MMOL/L 12/28/2024 7:15 PM CDT [facility] CALCIUM S/P/B 7.5(L) 8.5 - 10.1 MG/DL 12/28/2024 7:15 PM CDT [facility] BILIRUBIN TOTAL S/P/B 0.4 0.2 - 1.2 MG/DL 12/28/2024 7:15 PM CDT [facility] Comment: THIS ASSAY IS NOT RECOMMENDED FOR PATIENTS UNDERGOING TREATMENT WITH ELTROMBOPAG DUE TO THE POTENTIAL FOR FALSELY ELEVATED RESULTS. TOTAL PROTEIN S/P/B 6.7 6.4 - 8.2 G/DL 12/28/2024 7:15 PM CDT [facility] ALBUMIN S/P/B 2.9(L) 3.4 - 5.0 G/DL 12/28/2024 7:15 PM CDT [facility] AST 28 15 - 37 U/L 12/28/2024 7:15 PM CDT [facility] ALT 16 14 - 55 U/L 12/28/2024 7:15 PM CDT [facility] ALKALINE PHOSPHATASE S/P/B 159(H) 50 - 136 U/L 12/28/2024 7:15 PM CDT [facility] ANION GAP 11.5(H) 2 - 10 MMOL/L 12/28/2024 7:15 PM CDT [facility] BUN CREATININE RATIO 3.2(L) 6 - 26 12/28/2024 7:15 PM CDT [facility] A/G RATIO 0.8(L) 1.0 - 2.0 RATIO 12/28/2024 7:15 PM CDT [facility] GFR ESTIMATE 5(L) >90 ML/MIN/1.7 3 M2 12/28/2024 7:15 PM CDT [facility] Comment: NOTE: eGFR is [...] us Gregory Diaz MD LABORATORY Final Result [facility] [address] [place] [address], [place] [phone] * XR CHEST PORTABLE (12/28/2024 5:37 PM CDT) Only the most recent of5 resultswithin the time period is included. Anatomical Region Laterality Modality Chest Radiographic Michelle ging 12/28/2024 6:30 PM CDT Impressions 12/28/2024 6:30 PM CDT IMPRESSION: No acute cardiopulmonary process. Referred By: Interpreted By: Aaron Michele MD, 12/28/2024 6:30 PM Narrative 12/28/2024 6:30 PM CDT [place] [id number] EXAM: XR CHEST PORTABLE INDICATION: Chest pain [...] Procedure Note Aaron Michele MD - 12/28/2024 [place] [id number] EXAM: XR CHEST PORTABLE INDICATION: Chest pain [...] is included. 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 Gregory Diaz MD ECG ORDERABLES Final Result [facility] ([facility]) RAD * Qualitative HCG (12/28/2024 2:34 PM CDT) Only the most recent of3 resultswithin the time period is included. [facility] PREG SCREEN-SERUM NEGATIVE 12/28/2024 5:10 PM CDT [facility] 12/28/2024 2:34 PM CDT us Gregory Diaz MD LABORATORY Final Result Performing Organization Address City/[facility]/ZIP Co de Phone Number [facility] [address] [place] [address], [place] [phone] * (ABNORMAL) CBC W/DIFF AUTOMATED (12/28/2024 2:34 PM CDT) Only the most recent of18 resultswithin the time period is included. [facility] WBC 5.75 4.5 - 11.0 x10'3/uL 12/28/2024 3:24 PM CDT [facility] RBC 3.92(L) 4.20 - 5.40 x10'6/uL 12/28/2024 3:24 PM CDT [facility] HGB 10.7(L) 12.0 - 16.0 G/DL 12/28/2024 3:24 PM CDT [facility] HCT 33.3(L) 38.0 - 48.0 % 12/28/2024 3:24 PM CDT [facility] MCV 84.9 81.0 - 99.0 FL 12/28/2024 3:24 PM CDT [facility] MCH 27.3 27.0 - 31.0 PG 12/28/2024 3:24 PM CDT [facility] MCHC 32.1 32.0 - 36.0 G/DL 12/28/2024 3:24 PM CDT [facility] RDW 14.0 11.5 - 14.5 % 12/28/2024 3:24 PM CDT [facility] PLT 258 130 - 400 x10'3/uL 12/28/2024 3:24 PM CDT [facility] MPV 10.7 9.3 - 12.2 FL 12/28/2024 3:24 PM CDT [facility] DIFFERENTIAL TYPE AUTOMATED DIFFERENTIAL 12/28/2024 3:24 PM CDT [facility] NEUTROPHILS % 70.2 % 12/28/2024 3:24 PM CDT [facility] LYMPHOCYTES % 22.3 % 12/28/2024 3:24 PM CDT [facility] MONOCYTES % 4.2 % 12/28/2024 3:24 PM CDT [facility] EOSINOPHILS 2.8 % 12/28/2024 3:24 PM CDT [facility] BASOPHILS 0.3 % 12/28/2024 3:24 PM CDT [facility] IMMATURE GRANS % 0.2 % 12/29/19 3:24 PM CDT [facility] ABS. NEUTROPHILS 4.04 1.80 - 7.70 x10'3/uL 12/28/2024 3:24 PM CDT [facility] ABS. LYMPHOCYTES 1.28 1.00 - 4.80 x10'3/uL 12/28/2024 3:24 PM CDT [facility] ABS. MONOCYTES 0.24 0.24 - 0.86 x10'3/uL 12/28/2024 3:24 PM CDT [facility] ABS. EOSINOPHILS 0.16 0.04 - 0.36 x10'3/uL 12/28/2024 3:24 PM CDT [facility] ABS. BASOPHILS 0.02 0.01 - 0.08 x10'3/uL 12/28/2024 3:24 PM CDT [facility] ABS. IMMATURE GRANULOCYTES 0.01 0.00 - 0.49 x10'3/uL 12/28/2024 3:24 PM CDT [facility] 12/28/2024 2:34 PM CDT Gregory Diaz MD LABORATORY Final Result [place] [id number], * TROPONIN, QUANT (12/28/2024 2:34 PM CDT) Only the most recent of9 resultswithin the time period is included. TROPONIN I HIGH SENSITIVITY 13 <54 ng/L 12/28/2024 3:17 PM CDT [facility] Comment: HIGH DOSES OF BIOTIN, TROPONIN-SPECIFIC AUTOANTIBODIES, AND ANTIBODY THERAPY CONTAINING HAMA MAY INTERFERE WITH THIS TEST RESULT. CORRELATION TO CLINICAL HISTORY AND PRESENTATION RECOMMENDED. 12/28/2024 2:34 PM CDT Gregory Diaz MD LABORATORY Final Result [facility] [address] [place] [address], [place] [phone] * (ABNORMAL) PHOSPHORUS, INORGANIC PHOSPHATE (12/28/2024 2:34 PM CDT) Only the most recent of4 resultswithin the time period is included. PHOSPHORUS 5.9(H) 2.5 - 4.9 MG/DL 12/28/2024 5:11 PM CDT [facility] 12/28/2024 2:34 PM CDT us Gregory Diaz MD LABORATORY Final Result [facility] [address] [place] [address], [place] [phone] * MAGNESIUM (12/28/2024 2:34 PM CDT) Only the most recent of7 resultswithin the time period is included. MAGNESIUM 2.4 1.8 - 2.4 MG/DL 12/28/2024 5:11 PM CDT [facility] 12/28/2024 2:34 PM CDT us Gregory Diaz MD LABORATORY Final Result [facility] [address] [place] [address], [place] [phone] * LIPASE (12/28/2024 2:34 PM CDT) Only the most recent of7 resultswithin the time period is included. LIPASE 34 13 - 75 UNITS/L 12/28/2024 3:17 PM CDT [facility] 12/28/2024 2:34 PM CDT Gregory Diaz MD LABORATORY Final Result [facility] [address] [place] [address], [place] [phone] * Critical Care (12/24/2024 8:38 PM CDT) [...] 7.35 - 7.45 12/24/2024 8:[address] [facility] PCO2 40.0 35 - 45 MMHG 12/24/2024 8:[address] [facility] PO2 94.0 83 - 108 MMHG 12/24/2024 8:[address] [facility] TOTAL CO2 ARTERIAL 26.6(H) 19.0 - 24.0 MMOL/L 12/24/2024 8:[address] [facility] BASE EXCESS 0.7 0.0 - 3.0 MMOL/L 12/24/2024 8:[address] [facility] O2 SATURATION 97 94.0 - 98.0 % 12/24/2024 8:[address] [facility] BICARB ARTERIAL 25.4 21.0 - 28.0 MMOL/L 12/24/2024 8:[address] [facility] RAJAN TEST POSITIVE 12/24/2024 8:[address] [facility] O2 ADMIN ARTERIAL 21 12/24/2024 8:[address] [facility] DRAW SITE ARTERIAL RT BRACH 12/24/2024 8:[address] [facility] 12/24/2024 8:04 PM CDT Starr Porter MD LABORATORY Final Result Performing Organization Address City/[facility]/ZIP Co de Phone Number [facility] [address] [place] [address], [place] [phone] * (ABNORMAL) BETA-HYDROXYBUTYRATE (12/24/2024 7:10 PM CDT) Only the most recent of6 resultswithin the time period is included. BETA-HYDROXYBU TYRATE 0.8(H) <0.6 MMOL/L 12/24/2024 7:[address] [facility] 12/24/2024 7:10 PM CDT Starr Porter MD LABORATORY Final Result [facility] [address] [place] [address], [place] [phone] * XR ABD FLAT+UPRIGHT (12/18/2024 4:28 PM CDT) Anatomical Region Laterality Modality Abdomen Radiographic Michelle ging 12/18/2024 4:55 PM CDT Impressions 12/18/2024 4:58 PM CDT IMPRESSION: Nonobstructed gas pattern. No free air. Referred By: Interpreted By: Sampson Gustafson MD, 12/18/2024 4:55 PM Narrative 12/18/2024 4:58 [place] [address] EXAMINATION: XR ABD FLAT+UPRIGHT HISTORY: Vomiting, pain DATE: 12/18/2024 4:14 PM COMPARISON: September 28, 2022 TECHNIQUE: Supine and upright AP views of the abdomen. 3 images. FINDINGS: Nonobstructed gas pattern. Gastric stimulator device is noted. Mild gaseous distention of the stomach. Moderate amount of stool density. No acute osseous abnormality. No free air. Procedure Note Sampson Gustafson MD - 12/18/2024 [place] [address] EXAMINATION: XR ABD FLAT+UPRIGHT HISTORY: Vomiting, pain [...] 7.32 - 7.43 12/18/2024 3:[address] [facility] PCO2 VENOUS 33.0 MMHG 12/18/2024 3:[address] [facility] Comment:NO REFERENCE RANGE H BEEN ESTABLISHED PO2 VENOUS 75.0 MM HG 12/18/2024 3:[address] [facility] Comment:NO REFERENCE RANGE H BEEN ESTABLISHED TOTAL CO2 VENOUS 22.4 22.0 - 26.0 MMOL/L 12/18/2024 3:[address] [facility] BASE DEFICIT VENOUS 2.4 MMOL/L 12/18/2024 3:[address] [facility] Comment:NO REFERENCE RANGE H BEEN ESTABLISHED O2 SAT VENOUS 95 % 12/18/2024 3:[address] [facility] Comment:NO REFERENCE RANGE H BEEN ESTABLISHED BICARB VENOUS 21.4(L) 22.0 - 29.0 MMOL/L 12/18/2024 3:[address] [facility] O2 ADMIN VENOUS 21 3:[address] [facility] 12/18/2024 3:10 PM CDT us Cristine Rey MD LABORATORY Final Result [facility] [address] [place] [address], * LACTIC ACID (12/18/2024 3:10 PM CDT) LACTIC ACID VENOUS 0.6 0.4 - 2.0 MMOL/L 12/18/2024 3:[address] [facility] 12/18/2024 3:10 PM CDT us Cristine Rey MD LABORATORY Final Result Performing Organization Address City/[facility]/ZIP Co de Phone Number [facility] [address] [place] [address], [place] [phone] * CORONAVIRUS (COVID 19) (12/17/2024 6:02 PM CDT) CORONAVIRUS SARS COV 2 RNA NEGATIVE NEGATIVE 12/17/2024 6:37 PM CDT [facility] Comment: NEGATIVE RESULTS DO [...] SPECIMEN TYPE NASAL 12/17/2024 6:05 PM CDT [facility] NASAL STRUCTURE / Unknown 12/17/2024 6:02 PM CDT us Devyn Guadarrama DO MICROBIOLOGY - GENERAL ORDERAB LES Final Result [facility] [address] [place] [address], [place] [phone] * INFLUENZA A & B (12/17/2024 6:01 PM CDT) SPECIMEN TYPE NASAL 12/17/2024 6:15 PM CDT [facility] INFLUENZA A NEGATIVE NEGATIVE 12/17/2024 6:38 PM CDT [facility] INFLUENZA B NEGATIVE NEGATIVE 12/17/2024 6:38 PM CDT [facility] Comment: Interpretation: Negative for Influenza A [...] MICROBIOLOGY - GENERAL ORDERAB LES Final Result [facility] [address] [place] [address], [place] [phone] * CTA CHEST+ABD+PEL (12/17/2024 5:57 PM CDT) [...] 7:19 PM Narrative 12/17/2024 7:[address] [facility] [address] [place], [place] [address] EXAMINATION: CTA Chest, Abdomen and Pelvis with [...] Procedure Note Porter Rolle MD - 12/17/[address] [id number] EXAMINATION: CTA Chest, Abdomen and Pelvis with [...] - 99 mg/dL 12/14/2024 4:01 PM CDT [facility] 12/14/2024 3:45 PM CDT Catherine Borja SUPERVISOR ADULT EDUCATION POCT ORDERABLES - DEVICE Marli lipscomb Result [facility] [address] [place] [address], [place] [phone] * (ABNORMAL) BASIC METABOLIC PANEL (12/14/2024 3:18 PM CDT) Only the most recent of19 resultswithin the time period is included. GLUCOSE 247(H) 70 - 99 MG/DL 12/14/2024 4:13 PM CDT [facility] BUN 18 7 - 18 MG/DL 12/14/2024 4:13 PM CDT [facility] CREATININE S/P/B 5.19(HH) 0.55 - 1.02 MG/DL 12/14/2024 4:13 PM CDT [facility] Comment:NOT CALLED PER CRITI NICOLE VALUE POLICY SODIUM S/P/B 135(L) 136 - 145 MMOL/L 12/14/2024 4:13 PM CDT [facility] POTASSIUM S/P/B 4.3 3.5 - 5.1 MMOL/L 12/14/2024 4:13 PM CDT [facility] CHLORIDE S/P/B 104 97 - 115 MMOL/L 12/14/2024 4:13 PM CDT [facility] CO2 25.1 21 - 32 MMOL/L 12/14/2024 4:13 PM CDT [facility] CALCIUM S/P/B 8.2(L) 8.5 - 10.1 MG/DL 12/14/2024 4:13 PM CDT [facility] ANION GAP 5.9 2 - 10 MMOL/L 12/14/2024 4:13 PM CDT [facility] BUN CREATININE RATIO 3.5(L) 6 - 26 12/14/2024 4:13 PM CDT [facility] GFR ESTIMATE 11(L) >90 ML/MIN/1.7 3 M2 12/14/2024 4:13 PM CDT [facility] Comment: NOTE: eGFR is [...] us Catherine Borja NP LABORATORY Final Result [facility] [address] [place] [address], [place] [phone] * CT ABD+PEL W CON (12/11/2024 12:07 [...] 12:28 PM Narrative 12/11/2024 12:50 PM [address]T [address] [address] Examination: CT abdomen and pelvis with IV [...] Procedure Note Lilo Scott MD - 12/11/2024 [facility] [address] [place], [place] [address] Examination: CT abdomen and pelvis with IV [...] - 2.0 MMOL/L 12/10/2024 3:27 PM CDT [facility] 12/10/2024 2:03 PM CDT us Parag Michaels PA-C LABORATORY Final Resul t [facility] [address] [place] [address], [place] [phone] * (ABNORMAL) TSH W/REFLEX (12/10/2024 2:03 PM CDT) TSH 7.600(H) 0.358 - 3.74 uIU/ML 12/10/2024 3:13 PM CDT [facility] Comment: HIGH DOSES OF BIOTIN MAY INTERFERE WITH THIS TEST RESULT. CORRELATION TO CLINICAL HISTORY AND PRESENTATION RECOMMENDED. 12/10/2024 2:03 PM CDT us Parag Michaels PA-C LABORATORY Final Resul t Performing Organization Address City/[facility]/ZIP Co de Phone Number [facility] [address] [place] [address], [place] [phone] * PARTIAL THROMBOPLASTIN TIME,PTT (12/10/2024 2:03 PM CDT) PTT 34.8 25.1 - 36.5 SEC 12/10/2024 2:44 PM CDT [facility] 12/10/2024 2:03 PM CDT us Parag Michaels PA-C LABORATORY Final Resul t [facility] [address] [place] [address], [place] [phone] * PROTIME/INR, VENOUS (12/10/2024 2:03 PM CDT) PROTIME 11.3 10.2 - 12.9 SEC 12/10/2024 2:44 PM CDT [facility] INR 1.0 12/10/2024 2:44 PM CDT [facility] Comment: Recommended INR Therapeutic Goals: 2.0-3.0 Routine Therapy 2.5-3.5 Mechanical Prosthetic Valves (High Risk) 12/10/2024 2:03 PM CDT Parag Michaels PA-C LABORATORY Final Resul t Performing Organization Address City/[facility] Co de Phone Number [facility] [address] [place] [address], [place] [phone] * THYROXINE, FREE (FT4) (12/10/2024 2:03 PM CDT) FREE T4 1.17 0.76 - 1.46 NG/DL 12/10/2024 3:28 PM CDT [facility] 12/10/2024 2:03 PM CDT Parag Michaels PA-C LABORATORY Final Resul t Performing Organization Address [facility] Co de Phone Number [facility] [address] [place] [address], [place] [phone] * Complete PFT (pre/post [place], Lung Vol, Diff Capacity) ([id number], [id number], [id number], [id number]) (12/08/2024 2:00 PM CDT) Narrative [facility] - 12/08/2024 2:00 PM CDT Leonardo Washburn MD 12/13/2024 10:14 AM [facility] PULMONARY FUNCTION TESTS Lynette Bellamy 29-year-old Height [...] Leonardo Washburn MD PFT ORDERABLES Final Result [facility] [address] [place] [address], * Home O2 eval (12/08/2024 2:00 PM CDT) Narrative [facility] - 12/08/2024 2:00 PM CDT Leonardo Washburn MD 12/13/2024 10:14 AM [facility] PULMONARY FUNCTION TESTS Lynette Bellamy 29-year-old Height [...] supplemental oxygen Leonardo Washburn MD Shellie Sanchez SUPERVISOR ADULT EDUCATION PFT ORDERABLES Final Result [facility] [address] [place] [address], * PFT GENERIC (SCAN ORDER) (12/08/2024) 12/08/2024 [facility] Scanned SCANNING Final Resu lt * (ABNORMAL) LIPID PANEL (12/04/2024 11:58 AM CDT) CHOLESTEROL 109 <200 MG/DL 12/04/2024 12:39 PM CDT [facility] TRIGLYCERIDES 133 <150 MG/DL 12/04/2024 12:39 PM CDT [facility] HDL 31(L) >40.0 MG/DL 12/04/2024 12:39 PM CDT [facility] LDL (CALCULATED) 51 <100 MG/DL 12/05/19 25 12:39 PM T [facility] Comment:CALCULATED USING THE FRIEDEWALD EQUATION NON HDL CHOLESTEROL 78 <130 MG/DL 12/04 12:39 PM CDT [facility] CHOL/HDL RATIO 3.5 0.0 - 4.5 12/04/2024 12:39 PM T [facility] VLDL CALCULATION 27 5 - 55 MG/DL 12/04/2024 12:39 PM CDT [facility] LIPID INTERPRETATION 12/04/2024 12:39 PM T [facility] Comment: NIH CONCENSUS REPORT [...] LABORATORY Fin al Result Performing Organization Address City/[facility]/ZIP Co de Phone Number [facility] [address] [place] [address], [place] [phone] * CULTURE, BACTERIA, BLOOD (12/04/2024 4:00 AM CDT) Only the most recent of4 resultswithin the time period is included. SPEC DESCRIPTION BLOOD 12/04/2024 2:13 AM CDT [facility] SPECIAL REQUESTS NO SPECIAL REQUEST 12/04/2024 2:13 AM CDT [facility] CULTURE RESULT NO GROWTH 5 DAYS 12/09/2024 4:45 AM CDT [facility] BLOOD SPECIMEN OBTAINED FOR BLOOD CULTURE / Unknown 12/04/2024 4:00 AM CDT 12/04/2024 4:28 AM CDT Vee Buckner MD MICROBIOLOGY - GENERAL O RDERABLES Final Result Performing Organization Address City/[facility]/ZIP Co de Phone Number [facility] [address] [place] [address], [place] [phone] * (ABNORMAL) MRSA SCREENING (12/04/2024 2:30 AM CDT) Only the most recent of2 resultswithin the time period is included. SPEC DESCRIPTION NASAL 12/04/2024 2:36 AM CDT [facility] SPECIAL REQUESTS NO SPECIAL REQUEST 12/04/2024 2:36 AM CDT [facility] CULTURE RESULT METHICILLIN RESISTANT STAPHYLOCOCCUS AUREUS ISOLATED(AA) 12/05/2024 6:49 AM CDT [facility] CULTURE RESULT CALLED MRSA RESULT TO AND REPEATED BACK BY LYNETTE MIX RN AT [phone] DY 12/05/2024 6:49 AM CDT [facility] SPECIMEN FROM INTERNAL NOSE / Unknown 12/04/2024 2:30 AM CDT 12/04/2024 2:46 AM CDT Nadine Ayala DO MICROBIOLOGY - GENERAL ORDER SHABNAM Final Result [facility] [address] [place] [address], [place] [phone] * URINE BACTERIA CULTURE (12/03/2024 11:50 PM CDT) SPEC DESCRIPTION URINE CLEAN CATCH 12/04/2024 2:12 AM CDT [facility] SPECIAL REQUESTS NO SPECIAL REQUEST 12/04/2024 2:12 AM CDT [facility] CULTURE RESULT POLYMICROBIAL GROWTH CONSISTENT WITH NORMAL GENITAL STEPHANIE. SUSCEPTIBILITIES NOT ROUTINELY PERFORMED. 12/05/2024 8:34 AM CDT [facility] URINE SPECIMEN OBTAINED BY CLEAN CATCH PROCEDURE / Unknown 12/03/2024 11:50 PM CDT 12/04/2024 2:49 AM CDT us Vee Buckner MD MICROBIOLOGY - GENERAL O RDERABLES Final Result [facility] [address] [place] [address], * (ABNORMAL) HEMOGLOBIN, GLYCOSYLATED (11/24/2024 3:50 AM CDT) [facility] HGB A1C 9.2(H) <5.7 % 11/24/2024 4:47 AM CDT [facility] Comment: ADA GUIDELINES 2010 5.7 TO 6.4% INCREASED RISK OF DIABETES > OR = 6.5% CONSISTENT WITH DIABETES ESTIMATED AVG GLUCOSE 217 mg/dL 11/24/2024 4:47 AM CDT [facility] 11/24/2024 3:50 AM CDT Diaz Anthony MD LABORATORY Final Result [facility] [address] [place] [address], * RESPIRATORY PCR PANEL 2 (11/23/2024 12:15 PM CDT) [facility] ADENOVIRUS PCR (RESP) NOT DETECTED NOT DETECTED 11/23/2024 1:38 PM CDT [facility] CORONAVIRUS 229E PCR (RESP) NOT DETECTED NOT DETECTED 11/23/2024 1:38 PM CDT [facility] CORONAVIRUS HKU1 PCR (RESP) NOT DETECTED NOT DETECTED 11/23/2024 1:38 PM CDT [facility] CORONAVIRUS NL63 PCR (RESP) NOT DETECTED NOT DETECTED 11/23/2024 1:38 PM CDT [facility] CORONAVIRUS OC43 PCR (RESP) NOT DETECTED NOT DETECTED 11/23/2024 1:38 PM CDT [facility] METAPNEUMOVIRUS PCR (RESP) NOT DETECTED NOT DETECTED 11/23/2024 1:38 PM CDT [facility] RHINOVIRUS/ENTEROV IRUS PCR (RESP) NOT DETECTED NOT DETECTED 11/23/2024 1:38 PM CDT [facility] INFLUENZA A PCR (RESP) NOT DETECTED NOT DETECTED 11/23/2024 1:38 PM CDT [facility] INFLUENZA B PCR (RESP) NOT DETECTED NOT DETECTED 11/23/2024 1:38 PM CDT [facility] PARAINFLUENZA 1 PCR (RESP) NOT DETECTED NOT DETECTED 11/23/2024 1:38 PM CDT [facility] PARAINFLUENZA 2 PCR (RESP) NOT DETECTED NOT DETECTED 11/23/2024 1:38 PM CDT [facility] PARAINFLUENZA 3 PCR (RESP) NOT DETECTED NOT DETECTED 11/23/2024 1:38 PM CDT [facility] PARAINFLUENZA 4 PCR (RESP) NOT DETECTED NOT DETECTED 11/23/2024 1:38 PM CDT [facility] RSV PCR (RESP) NOT DETECTED NOT DETECTED 11/23/2024 1:38 PM CDT [facility] B PARAPERTUSIS PCR (RESP) NOT DETECTED NOT DETECTED 11/23/2024 1:38 PM CDT [facility] BORDETELLA PERTUSSIS PCR (RESP) NOT DETECTED NOT DETECTED 11/23/2024 1:38 PM CDT [facility] CHLAMYDOPHILA PNEUMONIAE PCR (RESP) NOT DETECTED NOT DETECTED 11/23/2024 1:38 PM CDT [facility] MYCOPLASMA PNEUMONIAE PCR (RESP) NOT DETECTED NOT DETECTED 11/23/2024 1:38 PM CDT [facility] CORONAVIRUS SARS COV 2 PCR (RESP) NOT DETECTED NOT DETECTED 11/23/2024 1:38 PM CDT [facility] NASOPHARYNGEAL SWAB / Unknown 11/23/2024 12:15 PM CDT Dania Westyakelin LEVINE MICROBIOLOGY - GENERAL OR DERABLES Final Result Performing Organization Address City/[facility]/ZIP Co de Phone Number [facility] [address] [place] [address], [place] [phone] * (ABNORMAL) PROCALCITONIN (PCT) (11/23/2024 8:43 AM CDT) PROCALCITONIN 19.39(H) 0.00 - 0.49 NG/ML 11/23/2024 10:19 AM CDT [facility] 11/23/2024 8:43 AM CDT Dania Tierney Leanna LEVINE LABORATORY Final Res ult Performing Organization Address [facility] Co de Phone Number [facility] [address] [place] [address], [place] [phone] * Critical Care (11/23/2024 6:32 AM CDT) [...] VE NON-REACTI VE 08/27/2024 12:38 PM CDT [facility] HEP B CORE IGM NON-REACTI VE NON-REACTI VE 08/27/2024 12:38 PM CDT [facility] HAV IGM NON-REACTI VE NON-REACTI VE 08/27/2024 12:38 PM CDT [facility] HEPATITIS C AB NON-REACTI VE NON-REACTI VE 08/27/2024 12:38 PM CDT [facility] 08/27/2024 9:41 AM CDT Lily Louis MD LABORATORY Final Result [facility] [address] [place] [address], from Last 3 Months or Most Recently Relevant to Health Maintenance Additional Health Concerns Infection Onset Date Last Indicated MRSA Comment:04/27/23 +MRSA Urine 10/23/23 +MRSA from [facility]. Added from external infection. Source: [facility]. 02/09/24 +MRSA Nares from [facility]. 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 09/23/2024 09/23/2024 Insurance MEDICARE MEDICAID Advance Directives Documents on File Type Date Recorded Patient [employer] Bi Developer Expl anation DNR (Do Not Resuscitate) Documentation [...] 8:32 AM 10/16/2024 6:48 PM Care Teams Beam Dyer Relationship Specialty Start Date End Date Edgardo Aldridge MD [address] [address] PCP - General FAMILY PRACTICE 07/03/24 Keely Ugalde APRN [address] [place] [address] PCP - Hospice Attending 10/06/24 Keely Ugalde APRN [address] [place] [address] Nurse Practitioner PALLIATIVE CARE 10/09/24 Odilon Tellez MD [address] [address] Consulting Physician NEPHROLOGY 11/17/24 Leonardo Washburn MD [address] [facility] [address] [place] [address] Consulting Physician Internal Medicine Pulmonary Disease 11/17/24 Young Vasquez MD [address] [facility] [address] [place] [address] GASTROENTEROLOGY 11/17/24 Andrei Chaves MD [address] [place] [address] SURGERY 11/17/24
--- OUTSIDE RECORDS SUMMARY | 2025-02-22 18:16 | XMS_ITS | Clinical Summary ---
Author Organization [facility] Address [address], [place] [address] Phone Care Team Providers Care Charter Boat Operator Name Role Phone Eun Camacho Primary [...] - 144 mmol/L 09/04/2022 9:18 AM CDT [facility] POTASSIUM 4.7 3.5 - 5.1 mmol/L 09/04/2022 9:18 AM CDT [facility] CHLORIDE 96(L) 100 - 110 mmol/L 09/04/2022 9:18 AM CDT [facility] CO2, VENOUS 24 22 - 32 mmol/L 09/04/2022 9:18 AM CDT [facility] ANION GAP 23.7(H) 8.0 - 20.0 mmol/L 09/04/2022 9:18 AM CDT [facility] GLUCOSE 443(HH) 70 - 99 mg/dL 09/04/2022 9:18 AM CDT [facility] BUN 28(H) 6 - 20 mg/dL 09/04/2022 9:18 AM CDT [facility] CREATININE, BLOOD 2.94(H) 0.60 - 1.10 mg/dL 09/04/2022 9:18 AM CDT [facility] BUN/CREATININE RATIO 10(L) 12 - 20 ratio 09/04/2022 9:18 AM CDT [facility] TOTAL PROTEIN 8.9(H) 6.0 - 8.3 g/dL 09/04/2022 9:18 AM [facility] ALBUMIN 3.9 3.5 - 5.2 g/dL 09/04/2022 9:18 AM [facility] Comment: The colormetric methods used for the determination of Albumin may lead to falsely elevated test results in patients suffering from renal failure or insufficiency due to interference with other proteins. A/G RATIO 0.8(L) 1.0 - 2.0 09/04/2022 9:18 AM CDT [facility] CALCIUM 9.7 8.9 - 10.3 mg/dL 09/04/2022 9:18 AM [facility] T BILI 0.3 <=1.2 mg/dL 09/04/2022 9:18 AM [facility] SGOT (AST) 11 <=32 U/L 09/04/2022 9:18 AM [facility] SGPT (ALT) 18 <=41 U/L 09/04/2022 9:18 AM [facility] ALKALINE PHOSPHATASE 196(H) 35 - 105 U/L 09/04/2022 9:18 AM [facility] GFR, ESTIMATED 22(L) >=60 09/04/2022 9:18 AM [facility] Comment: Creatinine Clearance is the preferred criteria for selecting drug dose adjustments in renally impaired patients. The GFR is provided as additional pertinent clinical information. GFR is reported in mL/min/1.73 sq m. Calculation based on the Chronic Kidney Disease Epidemiology Collaboration (CKD- EPI) equation refit without adjustment for race. GFR, EST. 23(L) >=60 023 9:18 AM [facility] GFR, EST. NONAFRICAN 19(L) >=60 09/04/2022 9:18 AM [facility] Blood Venipuncture / Unknown 09/04/2022 8:08 AM CDT 09/04/2022 8:39 AM CDT us Giovanni Faith DO CHEMISTRY ORDERABLES Fi nal Result Performing Organization Address City/[facility]/ZIP Co de Phone Number [facility] [address] [place] [address] * (ABNORMAL) Hemoglobin A1C (08/23/2022 9:39 PM CDT) HGB-A1C 9.0(H) 4.0 - 6.0 % 08/23/2022 10:04 PM CDT [facility] Est Average Glucose 211.6 mg/dL 08/23/2022 10:04 PM CDT [facility] Blood Venipuncture / Unknown 08/23/2022 9:39 PM CDT 08/23/2022 9:45 PM CDT Narrative [facility] - 08/23/2022 10:04 PM CDT HEMOGLOBIN A1C: DIABETIC PATIENTS: WELL-CONTROLLED: 6.2 - 7.0 INTERMEDIATE WELL-CONTROLLED: 7.0 - 9.0 POORLY-CONTROLLED: >9.0 us Celia Samuels APRN, CORPORATE SAFETY DIRECTOR CHEMISTRY ORDERABLES Final Result Performing Organization Address [facility] Co de Phone Number [facility] [address] [place] [address] from Last 3 Months or Most Recently [...] measures to stabilize the patient. Care Teams Charter Boat Operator Relationship Specialty Start Date End Date Eun Camacho PAC [address] [facility] [address] [place] [address] PCP - General Family Medicine 06/28/22
--- OUTSIDE RECORDS SUMMARY | 2025-02-22 18:16 | XMS_ITS | Encounter Summary ---
Author Organization [facility] Address [address] [place] [address] Phone Care Team Providers Care Milling Machine Operator Gear Name Role Phone Lay Villalta MD Primary Care Provider [phone] Eun Camacho Primary Care Provider [phone] Encounter Details Date Type Department Care Team (Late st Contact Info) Description 07/30/2021 Telephone [facility] Med Surg [address] [place] [phone] Kyleigh Thornton, RN [place] Social History Tobacco [...] on filedocumented in this encounter Care Teams Milling Machine Operator Gear Relationship Specialty Start Date End Date Lay Villalta MD [address] [facility] [address] [place] [address] PCP - General Family Medicine 07/10/21 06/27/22 Eun Camacho PAC [address] [facility] [address] [place] [address] PCP - General Family Medicine 06/28/22 documented as of this encounter
--- OUTSIDE RECORDS SUMMARY | 2025-02-22 18:16 | XMS_ITS | Encounter Summary ---
Author Organization [facility] Address [address] [place] [address] Care Team Providers Care Roofer Metal Name Role Phone Lay Villalta MD Primary Care Provider [phone] Edgardo Aldridge MD Primary Care Provider [phone] Encounter Details Date Type Department Care Team (Late st Contact Info) Description 07/17/2019 Lab Requisition [facility] [address] [place] [address] Unknown, Provider Social History Tobacco Use Types Packs/Day Years Used Date Smoking Tobacco: Never Smokeless Tobacco: Never Alcohol Use Standard Drinks/Week Comments No 0 (1 standard drink = 0.6 oz pur e alcohol) Comments Unknown Sex and Gender Information Value Date Recorded Sex Assigned at Not on file 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 [employer] Gender Identity Not on file Sexual Orientation Not on file 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 This test has been authorized [...] - MICROBIOLOGY ORDERABLES F inal Result [facility] [address] [place] [address], [facility] [[email or web address]] [phone] documented in this encounter Visit Diagnoses Not on filedocumented in this encounter Care Teams Roofer Metal Relationship Specialty Start Date End Date Lay Villalta MD [address] [facility] [address] [place] [phone] PCP - General Family Medicine 07/07/15 12/27/23 Edgardo Aldridge MD [address] [facility] [address] [place] [phone] PCP - General Family Medicine 12/28/23 documented as of this encounter
--- OUTSIDE RECORDS SUMMARY | 2025-02-22 18:17 | XMS_ITS | Encounter Summary ---
Author Organization [facility] Facility Care Team Providers Care Director Market Research Name Role Phone Unknown, Notinfile Primary Care Provider Unavail able Lay Villalta MD Primary Care Provider [phone] Tremayne Kebede MD Unavailable [phone] Georgia Mcbride BULB GRADER Unavailable [phone] Miscellaneous, Not In File Unavailable Unava ilable Eun Camacho Primary Care Provider + Cony Pemberton TRAVEL MANAGER Unavailable [phone] Antonette Vernon RN Unavailable [phone] Andrei Chaves MD PhD Unavailable [phone] Olivia Phelps MD Unavailable [phone] Edgardo Aldridge MD Primary Care Provider [phone] Odilon Tellez MD Unavailable [phone] Miscellaneous, Not In File Unavailable Unava ilable Ct Boggs TRAVEL MANAGER Unavailable [phone] Odilon Tellez MD Unavailable [phone] Tracey Felix RN Unavailable [phone] Ayaka Thomas MD Unavailable [phone] Yumi Jones NP Unavailable [phone] TosinRogersRut[employer] TRAVEL MANAGER Unavailable Unavaila ble Feli Boggs RN Unavailable [phone] Mendel Bowling RN Unavailable [phone] Leslie Baptiste [facility] Unavailable Mendel Bowling RN Unavailable [phone] Odilon Tellez MD Unavailable [phone] Mavis Barahona RN Unavailable [phone] Mahnaz Garcia RN Unavailable [phone] Jaimie Glez RN Unavailable [phone] Encounter Details Date Type Department Care Team (Latest Contact Info) Description 09/13/2016 Orders Only [facility] CLINCONV Provider, MD [facility] [address] [place] [address] Social History Tobacco Use Types Packs/Day Years Used Date Smoking Tobacco: Never Comments Unknown Sex and Gender Information Value Date Recorded Sex Assigned at Not on file Legal Sex Female 9:16 AM REGISTERED ROUTE ASSOCIATE Gender Identity Not on file Sexual [...] CDT COVID19 02/02/2020 02/02/2020 02/19/2020 3:05 AM REGISTERED ROUTE ASSOCIATE COVID: Recovered Comment:Added based on recent COVID [...] COVID: Suspected 06/15/2023 06/15/2023 06/15/2023 5:53 PM REGISTERED ROUTE ASSOCIATE C. difficile suspected 06/24/2023 06/24/202306/26 6:03 AM [...] infection. Source: [facility]. 08/20/2024 Carbapenemase, Unspecified Comment:Added from external infection. Source: [facility]. Kleb pneumo KPC 09/23/2024 10/31/2024 3:07 PM C DT CP-RUBBER MIXER Comment:Added from external infection. Source: [facility]. Kleb pneumo KPC 10/31/2024 10/31/2024 documented as of this encounter Care Teams Director Market Research Relationship Specialty Start Date End Date Unknown, Notinfile PCP - General 12/28/16 08/23/18 Lay Villalta MD PCP - General Family Medicine 08/24/18 07/17/21 Eun Camacho PA PCP - General Family Medicine 07/18/21 03/08/23 Edgardo Aldridge MD [address] [facility] [address] or [address] [place] [id number] PCP - General Family Medicine 04/02/23 Tremayne Kebede MD Consulting Physician Gastroenterology 02/05/20 3 Georiga Mcbride LPN [address] [place] [address] [address] [place] [address] ACO Care Casing Cooker 11/28/20 12/19/20 Miscellaneous, Not In File 07/17/21 03/16/23 Cony Pemberton, TRAVEL MANAGER [address] [facility] ([facility]) Mailstop [phone] [place] [address] SHOP Outpatient Special Events Director 12/07/22 12/07/22 Antonette Vernon, KADY [address] [place] [address] SHOP Outpatient Special Events Director 12/08/22 01/05/23 Andrei Chaves MD PhD [address] [facility] [address] [place] [address] Referring Physician General Surgery 03/17/23 Olivia Phelps MD [address] [facility] [address] [place], [place] [address] Consulting Physician Nephrology 03/17/23 Odilon Tellez MD [address] [facility] [address] [place], [place] [id number] Consulting Physician Nephrology 05/01/23 12/04/24 Miscellaneous, Not In File 07/08/23 01/24/24 Ct Boggs, [facility] [address] [facility] ([facility]) Mailstop [phone] [place] [address] SHOP Outpatient Special Events Director 07/09/23 08/05/23 Odilon Tellez MD [address] [facility] [address] [place] [address] Referring Physician Nephrology 11/12/23 Tracey Felix, KADY [address] [place] [address] Acid Adjuster 11/12/23 11/17/23 Ayaka Thomas MD [address] [facility] [address] [place] [address] Fellow Internal Medicine 12/17/23 Yumi Jnoes NP [address] [facility] [address] [place] [address] Nurse Practitioner Hospice and Palliative Medicine 08/16/23 Ruthy Leahy LCSW V Belt Coverer 12/31/23 02/22/24 Feli Boggs, RN [address] [place] [address] [address] [place] [address] Director Of Social Services 12/31/23 01/02/24 Mendel Bowling, KADY [address] [place] [address] [address] [place] [address] Director Of Social Services 01/03/24 03/23/24 Leslie Baptiste, [address] [place] [address] Pharmacist Pharmacy 01/13/24 02/03/24 Mendel Bowling, KADY [address] [place] [address] [address] [place] [address] Director Of Social Services 11/07/24 01/04/25 Odilon Tellez MD [address] [facility] [address] [place] [address] Consulting Physician Nephrology 12/05/24 Mavis Barahona, RN [address] [facility] [address] [place] [address] Acid Adjuster 12/20/24 01/08/25 Mahnaz Garcia, KADY [address] [place] [address] [address] [place] [address] Director Of Social Services 01/15/25 01/15/25 Jaimie Glez RN [address] [place] [address] [address] [place] [address] Director Of Social Services 01/29/25 02/07/25 documented as of this encounter
--- OUTSIDE RECORDS SUMMARY | 2025-02-22 18:17 | XMS_ITS | Clinical Summary ---
Author Organization [facility] Address [address] [place] [address] Care Team Providers Care Requisition Approver Name Role Phone Andrei Chaves MD PhD Unavailable [phone] Olivia Phelps MD Unavailable [phone] Edgardo Aldridge MD Primary Care Provider [phone] Odilon Tellez MD Unavailable [phone] Ayaka Thomas MD Unavailable [phone] Yumi Jones NP Unavailable [phone] Odilon Tellez MD Unavailable [phone] Allergies Active Allergy Reactions Criticality Noted [...] Medium 01/11/2024 Medications blood-glucose meter,continuous (Dexcom G6 Mash Filter Press Operator) miscIndications:Unc ontrolled type 1 diabetes mellitus with hyperglycemia, with long-term current use of insulin (HCC) 1 Dexcom G6 Mash Filter Press Operator 1 each 023 Active OneTouch Delica [...] kidney, consider outpatient followup (e.g. renal US). wound nurse associated with adverse incidents 01/09/2025 Overview (01/09/2025): [...] admission. Assessment & Plan (05/13/2022 9:19 AM TALLOW PUMPER): Glucose overall improved Continue current regimen Given [...] xanx Assessment & Plan (05/15/2020 6:30 AM TALLOW PUMPER): Uncontrolled Start cymbalta, xanax Odynophagia 04/09/2020 DKA [...] not be able to see her own speech language pathologist travel until September. Continue to monitor. Hold any [...] mostly IV dilaudid and was on a PIN WORKER briefly. - continues to have severe abdominal [...] same. Plan change to esophageal diet today. Roll Forger to review prior to dc Plan f/u with Dr Chaves in GI as OP Assessment & Plan (03/31/2022 5:47 PM TALLOW PUMPER): Type 1 diabetic Cyclical vomiting, gastroparesis - [...] q1hr Assessment & Plan (05/15/2020 2:56 PM TALLOW PUMPER): Needs letter for another 2 weeks off and when returns needs intermittent restrictions on return with no more than 3 days per week, but not consecutive 3 days Assessment & Plan (05/15/2020 6:29 AM TALLOW PUMPER): Uncontrolled Cont treatment per GI Cont reglan Has PICC line Assessment & Plan (06/27/2019 8:44 AM CDT): - Chronic emesis which triggers DKA. No active symptoms now. - PCP follow up. - Glucose control as above. Assessment & Plan (04/21/2019 1:24 PM TALLOW PUMPER): -Patient reports h/o positive gastric emptying study [...] had discussion with patient regarding pain control. manager terminal opioids would be a very poor choice for her, given her gastroparesis, young age, and potential for developing dependence/addiction. Will not discharge on opioids. Assessment & Plan (04/20/2019 6:16 PM TALLOW PUMPER): -Patient reports h/o positive gastric emptying study [...] fluids Assessment & Plan (03/29/2020 5:23 AM TALLOW PUMPER): Uncontrolled Cont long acting insulin with SSI F/u with spring former Assessment & Plan (03/20/2020 5:26 AM TALLOW PUMPER): Uncontrolled Cont insulin pump per endocrinology Vitamin [...] losartan Assessment & Plan (03/31/2022 5:47 PM TALLOW PUMPER): Not at goal Pt left office today [...] 10mg Assessment & Plan (03/29/2020 5:24 AM TALLOW PUMPER): Stable Cont lisinopril, amlodipine Assessment & Plan [...] lisinopril. Assessment & Plan (06/12/2019 12:12 PM TALLOW PUMPER): continue lisinopril and toprol xl , clonidine patch Assessment & Plan (06/11/2019 1:52 PM TALLOW PUMPER): _BP better today , continue lisinopril and toprol xl Assessment & Plan (05/07/2019 2:03 PM TALLOW PUMPER): On clonidine, metoprolol and lisinopril at home. - continue home clonidine and metoprolol - hold lisinopril for now (? EUGENIE related intestinal angioedema). May need to consider alternative anti-hypertensive if needed as a trial. Assessment & Plan (04/28/2019 4:43 PM TALLOW PUMPER): - Cont home meds Assessment & Plan (04/27/2019 2:59 PM TALLOW PUMPER): - Cont home meds Assessment & Plan (04/21/2019 12:59 PM TALLOW PUMPER): Clonidine patch and metoprolol XL -BP stable Assessment & Plan (04/11/2019 12:43 PM TALLOW PUMPER): Cont lisinopril and Toprol XL, and due for change of clonidine patch Assessment & Plan (04/10/2019 11:29 AM TALLOW PUMPER): BP elevated this am but improved after [...] be an option per palliative consult at [facility]. She is no longer wishing for hospice, [...] 1400mL 07/06, but pt refusing catheterization. 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 [...] now controlled. Plan dc home today with [facility], orders placed 07/07. Transition meds to PO at discharge, as pt tolerating diet. Discharge Planning I have spent 30 minutes on discharge planning activities. Time spent was on Coordination of care, Follow up , Counselling with patient/family, discharge exam, parent/patient education, PCP communication, and Other provider communication. Assessment & Plan (06/15/2023 3:17 AM TALLOW PUMPER): Related with gastroparesis. See gastroparesis section Type [...] as well, related to diabetes. Counseled on rn long term care effects of poorly controlled diabetes by multiple [...] discharged from ED. Came to [facility] ED on 07/12, again discharged from ED. Returned to [facility] on 07/13 with same symptoms and admitted [...] discharged from ED. Came to [facility] ED on 07/12, again discharged from ED. Returned to [facility] on 07/13 with same symptoms and admitted [...] 12/22/2022 Assessment & Plan (05/15/2020 6:30 AM TALLOW PUMPER): Will need to get flushed Weight loss [...] now. Urged patient to re-establish with previous spring former for management. Need back on insulin pump [...] cody Assessment & Plan (06/07/2020 3:17 PM TALLOW PUMPER): Persistent Cont reglan, zofran, compazine Refer to new gi Nausea & vomiting 05/07/2019 06/15/2023 Assessment & Plan (03/29/2020 5:23 AM TALLOW PUMPER): Uncontrolled Secondary to severe gastroparesis Will try scopolamine patch Cont zofran, compazine prn Assessment & Plan (06/12/2019 12:13 PM TALLOW PUMPER): -resolved -continue home meds, tolerating diet -has h/o cyclical vomiting and follows with GI -Reports benefit from recently added Motegrity and amitriptyline. She is on a low dose amitriptyline 25mg QHS. Will increase to 50mg QHS. Pt reports some restless leg side effects, advised her to watch carefully and reduce dose if RLS worsens. Assessment & Plan (06/11/2019 1:55 PM TALLOW PUMPER): -resolved -continue home meds, tolerating diet -has h/o cyclical vomiting and follows with GI Assessment & Plan (05/07/2019 1:59 PM TALLOW PUMPER): Previously seen by GI and felt to [...] 07/19/2023 Assessment & Plan (03/31/2022 5:48 PM TALLOW PUMPER): Seen by GI Fluids given Assessment & [...] GI Assessment & Plan (06/07/2020 3:17 PM TALLOW PUMPER): Persistent Cont jonny rodriguez, compazine Refer to new gi Assessment & Plan (05/31/2020 2:18 PM TALLOW PUMPER): Uncontrolled Cont treatment per GI Has PICC line Assessment & Plan (05/15/2020 6:29 AM TALLOW PUMPER): Uncontrolled Cont treatment per GI Has PICC line Assessment & Plan (03/20/2020 5:26 AM TALLOW PUMPER): Uncontrolled Cont treatment per GI To refer [...] up. Assessment & Plan (04/28/2019 4:43 PM TALLOW PUMPER): - Seen by GI last admission. Thought that available data and history more consistent with [facility]. - Started on low dose amitriptyline, will increase to 50mg - Uses promethazine for N/V Assessment & Plan (04/27/2019 2:53 PM TALLOW PUMPER): - Seen by GI last admission. Thought [...] considered. Assessment & Plan (05/07/2019 2:02 PM TALLOW PUMPER): Has not yet started Motegrity at home due to issues with pharmacy. No BM in 3 days per patient. - start motegrity 2mg qd Assessment & Plan (04/28/2019 4:43 PM TALLOW PUMPER): - Had BM after none for 5 days. Rx'd prucalopride last admission, just today arrived to pharmacy so not taken. She reports that she received opioids for the first time last admission - Will hold for now as she says she alternates with diarreha. Assessment & Plan (04/27/2019 3:00 PM TALLOW PUMPER): - Had BM after none for 5 [...] consult Assessment & Plan (05/15/2020 6:30 AM TALLOW PUMPER): PICC line in place because of need for recurrent IVF Assessment & Plan (06/27/2019 8:49 AM CDT): - 2/2 diabeters and chronic poor control and long standing cyclic vomiting and gastroperesis. Diet as tolerated, diabetic diet. Assessment & Plan (06/12/2019 12:12 PM TALLOW PUMPER): -Continue supplements as tolerated Dehydration 04/25/2019 07/19/2023 [...] recs Assessment & Plan (04/21/2019 12:59 PM TALLOW PUMPER): -Roll Forger consult, supplements as recommended. Patient doesn't like taste of many supplements Assessment & Plan (04/11/2019 12:43 PM TALLOW PUMPER): Treating nausea and encourage more regular food [...] gastroparesis. Assessment & Plan (06/12/2019 12:11 PM TALLOW PUMPER): - weaned off isulin drip , now [...] today Assessment & Plan (06/11/2019 1:55 PM TALLOW PUMPER): - weaned off onsulin drip , now [...] . Assessment & Plan (04/28/2019 4:43 PM TALLOW PUMPER): - Recurrent admissions, seem to be brought [...] intake Assessment & Plan (04/27/2019 2:59 PM TALLOW PUMPER): - Recurrent admissions, seem to be brought [...] outpatient Assessment & Plan (04/21/2019 1:02 PM TALLOW PUMPER): -DKA resolved after IV insulin, IVF and electrolyte repletion in ICU Assessment & Plan (04/20/2019 6:13 PM TALLOW PUMPER): -DKA resolved after IV insulin, IVF and electrolyte repletion in ICU Assessment & Plan (04/11/2019 12:48 PM TALLOW PUMPER): Presented with N/V which she felt was [...] closely Assessment & Plan (04/10/2019 11:28 AM TALLOW PUMPER): Presented with N/V which she felt was due to gastroparesis flare, in DKA on admission. Anion gap closed, received 18 Units Lantus before midnight. Cont present SQ insulin orders, monitor sugars closely Diabetes education ordered Discharge home once tolerating po later today or tomorrow Concussion with loss of consciousness 11/08/2018 03/31/2022 Polyneuropathy 11/08/2018 12/22/2022 Diabetes mellitus 11/08/2018 03/31/2022 Diabetes mellitus with gastr oparesis ([facility]) 07/07/2018 03/31/2022 Assessment & Plan [...] c/w tardive dyskinesia. 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 Was previously on Reglan but discontinued due to repetitive movements c/w tardive dyskinesia. 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 Recently admitted at [...] Compazine Assessment & Plan (04/10/2019 11:29 AM TALLOW PUMPER): Longstanding gastroparesis per patient. Recently admitted at [facility] but left 2-3 days prior to admission here as she says she was unhappy with her care. Cont prn antiemetics, she says Reglan didn't help in the past Outpatient GI F/U Resume IVF if she starts vomiting again Assessment & Plan (02/03/2019 9:53 AM CDT): Well controlled now since seeing spring former and using OmniPod. She is cleared to [...] AM. Assessment & Plan (05/07/2019 1:58 PM TALLOW PUMPER): History of brittle diabetes with multiple recent [...] AM Assessment & Plan (04/21/2019 1:21 PM TALLOW PUMPER): -Home regimen lantus 24u QAM, humalog 1 [...] count (which we do not do at [facility]) -D/c home, close f/u as outpatient Assessment & Plan (04/20/2019 6:14 PM TALLOW PUMPER): -Home regimen lantus 24u QAM, humalog 1 unit per 5 gram carb, SSI -Hospital regimen lantus 15units QAM, lispro 3 unit TID, Mid dose SSI -Her diet intake has been very unpredictable 2/2 gastroparesis, so I am intentionally underdosing mealtime insulin to avoid hypoglycemia. Assessment & Plan (08/24/2018 2:44 PM CDT): Diabetes is unchanged. cont long acting insulin until sees spring former ETD (Eustachian tube dysfunction), bilateral 8 07/19/2023 Diabetic gastroparesis ([facility]) 05/22/2017 03/31/2022 Overview (01/08/2020): Last Assessment & [...] GI Assessment & Plan (06/07/2020 3:16 PM TALLOW PUMPER): Persistent Cont reglan, zofran, compazine Refer to new gi Assessment & Plan (03/29/2020 5:22 AM TALLOW PUMPER): Severely uncontrolled To f/u with Gi Recommended patient d/w GI about tube feedings She agrees to do so Assessment & Plan (03/20/2020 5:26 AM TALLOW PUMPER): Uncontrolled Cont treatment per GI To refer [...] Department Care Team Description 02/21/2025 11:45 AM TALLOW PUMPER Office Visit [facility] Orthopedics and Sports Medicine [address] [place] [address] [address] [place] [address] Sussy Garcia PA Right ankle pain, unspecified chronicity (Primary Dx); Arthritis of right midfoot; Acquired pes planovalgus of right foot; Arthrosis of right ankle 02/19/2025 Telephone [facility] Medicine [address] [place] [address] [address] [place] [address] Sussy Garcia PA ICU 01/29/2025 Telephone [facility] Family Medicine at [address] [place] [address] Edgardo Aldridge MD 01/29/2025 Telephone [facility] [address] [place] [address] Outpatient Health 3rd Floor [address] [place] [address] Chyna Kay MA Scheduling Appointments 01/24/2025 Telephone [facility] Medicine [address] [place] [address] [address] [place] [address] Sussy Garcia PA req a cb about surg; FYI 01/15/2025 3:03 PM CDT - 01/26/2025 11:15 AM CDT Hospital Encounter [facility] [address] [place] [address] Odilon Correa MD PhD Anne-Marie, MD Jo Kennedy Jerry, MD PhD Juvencio, Devang Childers MD Nausea and vomiting, unspecified vomiting type (Primary Dx); History of gastrostomy; Abdominal pain; High anion gap Discharge Disposition: Discharge to home or self care 01/14/2025 3:48 PM CDT - 01/14/2025 5:25 PM CDT Emergency [facility] Emergency Department [facility] [place] [address] Leo August DO Encounter for attention to gastrostomy (HCC) (Primary Dx) Discharge Disposition: Discharge to home or self care 01/12/2025 Telephone [facility] Kid[facility] [address] [facility] [address] [phone] [place] [address] Mavis Barahona RN 01/09/2025 9:27 AM CDT Anesthesia Event [facility] Imaging [address] [place] [address] Jeferson Pascal MD 01/09/2025 Orders Only Radiology 1 [place] [address] Jamie Bell MD 01/08/2025 5:49 PM CDT - 01/12/2025 2:21 PM CDT Hospital Encounter [facility] [address] [place] [address] Viraj Olivo MD Heath, MD Anne-Marie Hernández, MD Paula Kennedy, Yareli Nelson MD Gastroparesis due to secondary diabetes (HCC) (Primary Dx); Diabetes mellitus with gastroparesis (HCC) Discharge Disposition: Discharge to home or self care 01/08/2025 10:30 AM CDT Office Visit [facility] Medical Group Orthopedics and Sports Medicine [address] [address] Raul Clark DO Right ankle pain, unspecified chronicity (Primary Dx); Lisfranc dislocation, left, subsequent encounter; Arthritis of right midfoot; Acquired pes planovalgus of right foot; Arthrosis of right ankle 01/08/2025 10:10 AM CDT - 01/08/2025 11:59 PM CDT Hospital Encounter [facility] Diag Imaging [address] [place] [address] Right ankle pain, unspecified chronicity; Lisfranc dislocation, left, subsequent encounter Discharge Disposition: Discharge to home or self care 01/08/2025 Telephone [facility] Gastroenterology [address] [place] [address] [place] [address] Yodit Ayers RN 01/04/2025 Documentation [facility] Medicine Gastroenterology [address] [place] [address] [place] [address] Young Vasquez MD 01/02/2025 Telephone [facility] 1 [place] [address] Jaimie Foster RN 12/29/2024 Results Follow-Up [facility] Medical Group Family Medicine at [address] [place] [address] Edgardo Aldridge MD SCAN - RADIOLOGY/IMAGING 12/28/2024 Documentation [facility] Medicine Gastroenterology [address] [place] [address] Medical Office Building [address] [place] [address] Jaimie Manriquez, KADY Consult from [facility] 12/28/2024 Results Follow-Up [facility] Medicine Gastroenterology [address] [place] [address] [place] [address] Young Vasquez MD Surgical pathology 12/26/2024 8:46 AM CDT Anesthesia Event [facility] [address] [address] Dylan Frias MD Kandachar, Mohan Dubois MD 12/26/2024 8:45 AM CDT - 12/26/2024 9:45 AM CDT Surgery [facility] [address] [facility] [address] [place] [address] Young Vasquez MD COLON BIOPSY 12/26/2024 6:53 AM CDT - 12/26/2024 11:18 AM CDT Hospital Encounter [facility] [place] [phone] [facility] [address] [place] [address] Young Vasquez MD Perirectal fistula; Gastroparesis Discharge Disposition: Discharge to home or self care 12/26/2024 6:40 AM CDT Lab [facility] [address] [place] [address] Dialysis patient; Pre-procedure lab exam 12/26/2024 Results Follow-Up [facility] Gastroenterology [address] [place] [address] Medicine 12th [place] [address] [place] [address] Abdomen and Pelvis Enterography W Contrast 12/25/2024 11:57 AM CDT - 12/25/2024 11:59 PM CDT Hospital Encounter [facility] [address] [place] [address] Perirectal fistula Discharge Disposition: Discharge to home or self care 12/22/2024 12:28 PM CDT - 12/22/2024 11:59 PM [place] [address] Closed displaced trimalleolar fracture of right ankle, initial encounter; Acute right ankle pain; Flat foot (pes planus) (acquired), right foot Discharge Disposition: Discharge to home or self care 12/22/2024 12:27 PM CDT - 12/22/2024 11:59 PM CDT Hospital Encounter [place] [id number] Lisfranc dislocation, right, initial encounter; Acute pain of right foot; Flat foot (pes planus) (acquired), right foot Discharge Disposition: Discharge to home or self care 12/22/2024 Orders Only [facility] Health Information Management [address] [place] [address] Edgardo Aldridge MD 12/20/2024 Telephone [facility] Transplant Kidney [address] [facility] [address] [phone] [place] [address] Julissa Urban Referral - Kidney Txp 12/19/2024 Telephone [facility] Specialty Services [address] [place] [address] Bri Anton RN GI PROCEDURE 7 DAY PRE CALL 12/07/2024 1:00 PM CDT Office Visit [facility] Medical [facility] Orthopedics and Sports Medicine [address] [place] [address] [address] [place] [address] Raul Clark DO Acute pain of right foot (Primary Dx); Right ankle pain, unspecified chronicity; Lisfranc dislocation, right, initial encounter; Closed displaced trimalleolar fracture of right ankle, initial encounter; Acute right ankle pain; Flat foot (pes planus) (acquired), right foot 12/07/2024 12:51 PM CDT - 12/07/2024 11:59 PM CDT Hospital Encounter [facility] Diag Imaging [facility] [place] [address] Right ankle pain, unspecified chronicity Discharge Disposition: Discharge to home or self care 12/05/2024 Telephone [facility] [address] [facility] [address] [phone] [place] [address] Julissa Urban Referral - Kidney Txp 11/28/2024 Telephone [facility] Medical Group Nephrology at [place] [address] [facility] [address] [place] [address] Odilon Tellez MD 11/23/2024 Results Follow-Up [facility] Medical Group Family Medicine at [address] [place] [address] Edgardo Aldridge MD SCAN - RADIOLOGY/IMAGING 11/22/2024 Results Follow-Up [facility] Medical Group Family Medicine at [address] [place] [address] Edgardo Aldridge MD XR Ankle Right 3+ [...] often do you attend chur ch or islam services? Never 11/07/2024 Do you belong to any clubs o r organizations such as episcopalian groups, unions, fraternal or athletic groups, or [...] Date Recorded PHQ-2 Total Score 0 01/09/2025 [facility] [place] of Occupat ional Health - Occupational Stress [...] often do you attend chur ch or islam services? Never 01/17/2025 Do you belong to any clubs o r organizations such as episcopalian groups, unions, fraternal or athletic groups, or [...] in a fpc (including now)? No 01/17/2025 [facility] Utilities Answer Date Recorded In the past 12 months has th e [employer], gas, oil, or water company threatened to [...] on file Legal Sex Female 9:16 AM TALLOW PUMPER Gender Identity Not on file Sexual Orientation [...] 68 kg (150 lb) 02/21/2025 11:55 AM TALLOW PUMPER Height 162.6 cm (5' 4) 02/21/2025 11:55 AM TALLOW PUMPER Body Mass Index 25.75 02/21/2025 11:55 AM TALLOW PUMPER Plan of Treatment Health Maintenance Due Date [...] Urine Discontinued Medical Devices Implanted Type Area Webfed Offset Press Operator Device Identifier Shelf Expiration Date Model / Serial / Lot Raquel Dimock Trialysis 13fr 24cm Dialysis Tray Catheter Sterile Short Term [id number] - [id number] Implanted:Qty: 1 on 10/27/2023 by Juan Long MD at [facility] Catheter Right: Groin Raquel Dimock [id number] 07/17/2024 [id number] / / [id number] [employer] Symmetry Vesolock Large Clip Internal 01871h - Sn/A - [id number] Implanted:Qty: 1 on 10/05/2022 by Andrei Chaves MD PhD at [facility] Clip N/A: Abdomen [employer] 04/19/2025 [id number] / N/A / Med[employer] Enterra 35cm Lead Unipolar Kit Stimulator 4351-35 - [id number] - [id number] Implanted:Qty: 1 on 10/05/2022 by Andrei Chaves MD PhD at [facility] Stimulator N/A: Abdomen [employer] 06/04/2024 4351-35 / [id number] / [employer] Enterra 35cm Lead Unipolar Kit Stimulator 4351-35 - [id number] - [id number] Implanted:Qty: 1 on 10/05/2022 by Andrei Chaves MD PhD at [facility] Stimulator N/A: Abdomen [employer] 08/10/2024 4351-35 / [id number] / Medtronic Inc Neurostimulator Implantable 2.4inx2.2in Enterra Ii Gastric 03048 - [id number] - [id number] Implanted:Qty: 1 on 10/05/2022 by Andrei Chaves MD PhD at [facility] Stimulator N/A: Abdomen [employer] 11/30/2022 [id number] / [id number] / N/A [employer] Duraflow Embosafe 15.5fr 24cm Basic 2 Lumen Kit Catheter [id number] - [id number] Implanted:Qty: 1 on 11/03/2023 by Skip Huddleston MD at [facility] [employer] 01/16/2026 [id number] / / Procedures Procedure Name Priority Date/Time [...] last revised on 2013. POC Device Number [id number] [employer] Blood 01/26/2025 10:3 6 AM CDT 01/26/2025 10:36 AM CDT Devang Henning MD LAB POCT ORDERABLES - DEVICE Final Result [facility] [address] [facility] Department [place] [address] * POCT glucose (01/26/2025 8:22 AM CDT) Glucose, POC 81 70 - 199 mg/dL Comment: Interpretive Data Glucose is assumed to be non-fasting. Fasting Glucose reference ranges are: 0 - 150 years: 70 mg/dL - 99 mg/dL Current interpretive data was last revised on 2013. POC Device Number [id number] [employer] Blood 01/26/2025 8:22 AM CDT 01/26/2025 8:22 AM CDT Devang Henning MD LAB POCT ORDERABLES - DEVICE Final Result Performing Organization Address [facility] Co de Phone Number HERBER REINACH [phone] [facility]. [facility] [employer] [place] [place] [address] * POCT glucose (01/26/2025 5:50 AM CDT) Glucose, POC 81 70 - 199 mg/dL Comment: Interpretive Data Glucose is assumed to be non-fasting. Fasting Glucose reference ranges are: 0 - 150 years: 70 mg/dL - 99 mg/dL Current interpretive data was last revised on 2013. POC Device Number [id number] 1 HERBER MARCANO Blood 01/26/2025 5:50 AM CDT 01/26/2025 5:50 AM CDT Devang Henning MD LAB POCT ORDERABLES - DEVICE Final Result Performing Organization Address [facility] de Phone Number HERBER JIMENEZWCH [address] [facility] [place] [address] * POCT glucose (01/26/2025 1:53 AM CDT) Glucose, POC 144 70 - 199 mg/dL Comment: Interpretive Data Glucose is assumed to be non-fasting. Fasting Glucose reference ranges are: 0 - 150 years: 70 mg/dL - 99 mg/dL Current interpretive data was last revised on 2013. POC Device Number [id number] 1 HERBER MARCANO Blood 01/26/2025 1:53 AM CDT 01/26/2025 1:53 AM CDT Devang Henning MD LAB POCT ORDERABLES - DEVICE Final Result Performing Organization Address City/[facility] Co de Phone Number HERBER JIMENEZWCH [phone] [facility]. [facility] [employer] [place] [address] * POCT glucose (01/25/2025 9:55 PM CDT) Glucose, POC 172 70 - 199 mg/dL Comment: Interpretive Data Glucose is assumed to be non-fasting. Fasting Glucose reference ranges are: 0 - 150 years: 70 mg/dL - 99 mg/dL Current interpretive data was last revised on 2013. POC Device Number [id number] 1 HERBER MARCANO Blood 01/25/2025 9:55 PM CDT 01/25/2025 9:55 PM CDT Devang Henning MD LAB POCT ORDERABLES - DEVICE Final Result Performing Organization Address [facility] Co de Phone Number HERBER BJWCH [phone] [facility]. [facility] [employer] [place] [address] * POCT glucose (01/25/2025 5:42 PM CDT) Glucose, POC 110 70 - 199 mg/dL Comment: Interpretive Data Glucose is assumed to be non-fasting. Fasting Glucose reference ranges are: 0 - 150 years: 70 mg/dL - 99 mg/dL Current interpretive data was last revised on 2013. POC Device Number [id number] 1 HERBER MARCANO Blood 01/25/2025 5:42 PM CDT 01/25/2025 5:42 PM CDT Devang Henning MD LAB POCT ORDERABLES - DEVICE Final Result Performing Organization Address [facility] Co de Phone Number [facility] BJWCH [address] [facility]. [facility] [employer] [place] [address] * POCT glucose (01/25/2025 12:57 PM CDT) Glucose, POC 81 70 - 199 mg/dL Comment: Interpretive Data Glucose is assumed to be non-fasting. Fasting Glucose reference ranges are: 0 - 150 years: 70 mg/dL - 99 mg/dL Current interpretive data was last revised on 2013. POC Device Number [id number] 1 HERBER MARCANO Blood 01/25/2025 12:5 7 PM CDT 01/25/2025 12:57 PM CDT Devang Hnening MD LAB POCT ORDERABLES - DEVICE Final Result Performing Organization Address [facility] Phone Number HERBER JIMENEZCH [address] [facility] [employer] [place] [address] * (ABNORMAL) POCT glucose (01/25/2025 12:39 PM CDT) Glucose, POC 64(L) 70 - 199 mg/dL Comment: Interpretive Data Glucose is assumed to be non-fasting. Fasting Glucose reference ranges are: 0 - 150 years: 70 mg/dL - 99 mg/dL Current interpretive data was last revised on 2013. POC Device Number [id number] HERBER JIMENEZWCH Glucose comment 1 RN/ Notified HERBER MARCANO Blood 01/25/2025 12:3 9 PM CDT 01/25/2025 12:39 PM CDT Devang Henning MD LAB POCT ORDERABLES - DEVICE Final Result Performing Organization Address [facility] Phone Number [facility] [address] [facility] [employer] [place] [address] * POCT glucose (01/25/2025 10:43 AM CDT) Glucose, POC 84 70 - 199 mg/dL Comment: Interpretive Data Glucose is assumed to be non-fasting. Fasting Glucose reference ranges are: 0 - 150 years: 70 mg/dL - 99 mg/dL Current interpretive data was last revised on 2013. POC Device Number [id number] 3 HERBER JIMENEZWCH Blood 01/25/2025 10:4 3 AM CDT 01/25/2025 10:43 AM CDT Devang Henning MD LAB POCT ORDERABLES - DEVICE Final Result Performing Organization Address [facility] Co de Phone Number HERBER REINACH [phone] [facility]. [facility] [employer] [place] [address] * POCT glucose (01/25/2025 9:08 AM CDT) Glucose, POC 90 70 - 199 mg/dL Comment: Interpretive Data Glucose is assumed to be non-fasting. Fasting Glucose reference ranges are: 0 - 150 years: 70 mg/dL - 99 mg/dL Current interpretive data was last revised on 2013. POC Device Number [id number] 3 HERBER MARCANO Blood 01/25/2025 9:08 AM CDT 01/25/2025 9:08 AM CDT Devang Henning MD LAB POCT ORDERABLES - DEVICE Final Result Performing Organization Address [facility] de Phone Number HERBER JIMENEZWCH [phone] [facility] [place] [address] * POCT glucose (01/25/2025 7:51 AM CDT) Glucose, POC 99 70 - 199 mg/dL Comment: Interpretive Data Glucose is assumed to be non-fasting. Fasting Glucose reference ranges are: 0 - 150 years: 70 mg/dL - 99 mg/dL Current interpretive data was last revised on 2013. POC Device Number [id number] 3 HERBER JIMENEZWCH Blood 01/25/2025 7:51 AM CDT 01/25/2025 7:51 AM CDT Devang Henning MD LAB POCT ORDERABLES - DEVICE Final Result Performing Organization Address [facility] de Phone Number HERBER JIMENEZWCH [phone] [facility]. [facility] [employer] [place] [address] * POCT glucose (01/25/2025 5:21 AM CDT) Glucose, POC 129 70 - 199 mg/dL Comment: Interpretive Data Glucose is assumed to be non-fasting. Fasting Glucose reference ranges are: 0 - 150 years: 70 mg/dL - 99 mg/dL Current interpretive data was last revised on 2013. POC Device Number [id number] 3 HERBER MARCANO Blood 01/25/2025 5:21 AM CDT 01/25/2025 5:21 AM CDT us Devang Henning MD LAB POCT ORDERABLES - DEVICE Final Result HERBER JIMENEZWCH [address] [facility]. [place] [address] * (ABNORMAL) eGFR (01/25/2025 5:18 AM CDT) [...] ORDERABLES Final Res ult Performing Organization Address [facility] Co de Phone Number [facility] [address] [facility] [employer] [place] [address] * Magnesium (01/25/2025 5:18 AM CDT) Pathologist [facility] Magnesium 2.4 1.4 - 2.5 mg/dL Comment: Reference Data. Reference values for Labor and Delivery patients: < or = 0.7 mg/dL to > or = 7.3 mg/dL Current reference data last reviewd on 01/16/2015. Blood 01/25/2025 5:18 AM CDT 01/25/2025 5:54 AM CDT Devang Henning MD LAB BLOOD ORDERABLES Final Result Performing Organization Address [facility] de Phone Number [facility] [address] [facility] [employer] [place] [address] * (ABNORMAL) Renal function panel (01/25/2025 5:18 AM CDT) Pathologist [facility] Sodium 137 135 - 145 mmol/L Potassium, pl 5.5(H) 3.3 - 4.9 mmol/L [facility] Chloride 98 97 - 110 mmol/L [facility] CO2 27 22 - 32 mmol/L [facility] Anion gap 12 2 - 15 mmol/L [facility] BUN 50(H) 6 - 25 mg/dL [facility] Creatinine 5.75(H) 0.60 - 1.10 mg/dL [facility] Glucose 112 70 - 199 mg/dL [facility] Comment: Interpretive Data Fasting glucose >/= [...] 2022. Calcium 9.3 8.5 - 10.3 mg/dL [facility] Phosphorus, pl 4.5 2.3 - 4.5 mg/dL [facility] Albumin 4.0 3.5 - 5.0 g/dL [facility] Blood 01/25/2025 5:18 AM CDT 01/25/2025 5:54 AM CDT Jeffrey Osorio MD PhD LAB BLOOD ORDERABLES Final Res ult Performing Organization Address [facility] Co de Phone Number [facility] [address] [facility] [facility] [employer] [place], [place] [id number] * POCT glucose (01/25/2025 2:02 AM CDT) Glucose, POC 181 70 - 199 mg/dL Comment: Interpretive Data Glucose is assumed to be non-fasting. Fasting Glucose reference ranges are: 0 - 150 years: 70 mg/dL - 99 mg/dL Current interpretive data was last revised on 2013. POC Device Number [id number] 3 [facility] Blood 01/25/2025 2:02 AM CDT 01/25/2025 2:02 AM CDT Devang Henning MD LAB POCT ORDERABLES - DEVICE Final Result Performing Organization Address [facility] Co de Phone Number [facility] [phone] [facility] Center[facility] [place] [address] * (ABNORMAL) POCT glucose (01/24/2025 10:05 PM CDT) Glucose, POC 243(H) 70 - 199 mg/dL Comment: Interpretive Data Glucose is assumed to be non-fasting. Fasting Glucose reference ranges are: 0 - 150 years: 70 mg/dL - 99 mg/dL Current interpretive data was last revised on 2013. POC Device Number [id number] 3 HERBER MARCANO Blood 01/24/2025 10:0 5 PM CDT 01/24/2025 10:05 PM CDT Devang Henning MD LAB POCT ORDERABLES - DEVICE Final Result Performing Organization Address [facility] Phone Number [facility] [address] [place] [address] * POCT glucose (01/24/2025 6:13 PM CDT) Glucose, POC 134 70 - 199 mg/dL Comment: Interpretive Data Glucose is assumed to be non-fasting. Fasting Glucose reference ranges are: 0 - 150 years: 70 mg/dL - 99 mg/dL Current interpretive data was last revised on 2013. POC Device Number [id number] 3 HERBER MARCANO Blood 01/24/2025 6:13 PM CDT 01/24/2025 6:13 PM CDT Devang Henning MD LAB POCT ORDERABLES - DEVICE Final Result Performing Organization Address [facility] Phone Number [facility] [address] [place] [address] * POCT glucose (01/24/2025 12:59 PM CDT) Glucose, POC 110 70 - 199 mg/dL Comment: Interpretive Data Glucose is assumed to be non-fasting. Fasting Glucose reference ranges are: 0 - 150 years: 70 mg/dL - 99 mg/dL Current interpretive data was last revised on 2013. POC Device Number [id number] 3 HERBER MARCANO Blood 01/24/2025 12:5 9 PM CDT 01/24/2025 12:59 PM CDT Devang Henning MD LAB POCT ORDERABLES - DEVICE Final Result Performing Organization Address [facility] Co de Phone Number HERBER JIMENEZWCH [phone] [employer] [facility] [place] [address] * POCT glucose (01/24/2025 9:32 AM CDT) Glucose, POC 111 70 - 199 mg/dL Comment: Interpretive Data Glucose is assumed to be non-fasting. Fasting Glucose reference ranges are: 0 - 150 years: 70 mg/dL - 99 mg/dL Current interpretive data was last revised on 2013. POC Device Number [id number] 3 HERBER BJWCH Blood 01/24/2025 9:32 AM CDT 01/24/2025 9:32 AM CDT Devang Henning MD LAB POCT ORDERABLES - DEVICE Final Result Performing Organization Address [facility] de Phone Number HERBER JIEMNEZWCH [address] [place] [facility] Department of [employer] [place] [address] * (ABNORMAL) eGFR (01/24/2025 5:56 AM CDT) Pathologist [facility] eGFR 13(L) >=60 mL/min/1. 73 m2 Comment: [...] BLOOD ORDERABLES Final Result Performing Organization Address [facility] Co de Phone Number HERBER REINACH [address] [facility] [employer] [place] [address] * Magnesium (01/24/2025 5:56 AM CDT) Pathologist [facility] Magnesium 2.0 1.4 - 2.5 mg/dL Comment: Reference Data. Reference values for Labor and Delivery patients: < or = 0.7 mg/dL to > or = 7.3 mg/dL Current reference data last reviewd on 01/16/2015. Blood 01/24/2025 5:56 AM CDT 01/24/2025 6:25 AM CDT Devang Henning MD LAB BLOOD ORDERABLES Final Result Performing Organization Address [facility] de Phone Number HERBER JIMENEZWCH [address] [facility] [employer] [place] [address] * (ABNORMAL) Renal function panel (01/24/2025 5:56 AM CDT) Pathologist [facility] Sodium 134(L) 135 - 145 mmol/L Potassium, pl 4.8 3.3 - 4.9 mmol/L [facility] Chloride 96(L) 97 - 110 mmol/L [facility] CO2 30 22 - 32 mmol/L [facility] Anion gap 8 2 - 15 mmol/L [facility] BUN 34(H) 6 - 25 mg/dL [facility] Creatinine 4.40(H) 0.60 - 1.10 mg/dL [facility] Glucose 115 70 - 199 mg/dL [facility] Comment: Interpretive Data Fasting glucose >/= 126 [...] 2022. Calcium 9.1 8.5 - 10.3 mg/dL [facility] Phosphorus, pl 3.8 2.3 - 4.5 mg/dL [facility] Albumin 3.7 3.5 - 5.0 g/dL [facility] Blood 01/24/2025 5:56 AM CDT 01/24/2025 6:25 AM CDT Devang Henning MD LAB BLOOD ORDERABLES Final Result Performing Organization Address [facility] de Phone Number [facility] [address] [facility] [place] [address] * POCT glucose (01/24/2025 5:43 AM CDT) Glucose, POC 115 70 - 199 mg/dL Comment: Interpretive Data Glucose is assumed to be non-fasting. Fasting Glucose reference ranges are: 0 - 150 years: 70 mg/dL - 99 mg/dL Current interpretive data was last revised on 2013. POC Device Number [id number] 3 [facility] Blood 01/24/2025 5:43 AM CDT 01/24/2025 5:43 AM CDT Devang Henning MD LAB POCT ORDERABLES - DEVICE Final Result Performing Organization Address [facility] de Phone Number [facility] [address] [facility] [employer] [place], [place] [id number] * POCT glucose (01/24/2025 1:53 AM CDT) Glucose, POC 120 70 - 199 mg/dL Comment: Interpretive Data Glucose is assumed to be non-fasting. Fasting Glucose reference ranges are: 0 - 150 years: 70 mg/dL - 99 mg/dL Current interpretive data was last revised on 2013. POC Device Number [id number] 3 [facility] BARBARAW[facility] Blood 01/24/2025 1:53 AM CDT 01/24/2025 1:53 AM CDT Devang Henning MD LAB POCT ORDERABLES - DEVICE Final Result Performing Organization Address [facility] de Phone Number HERBER BJWCH [address] [place] [facility] [employer] [place], [place] [id number] * POCT glucose (01/23/2025 9:51 PM CDT) [facility] Glucose, POC 134 70 - 199 mg/dL Comment: Interpretive Data Glucose is assumed to be non-fasting. Fasting Glucose reference ranges are: 0 - 150 years: 70 mg/dL - 99 mg/dL Current interpretive data was last revised on 2013. POC Device Number [id number] 3 [facility] BARBARAWCH Blood 01/23/2025 9:51 PM CDT 01/23/2025 9:51 PM CDT Devang Henning MD LAB POCT ORDERABLES - DEVICE Final Result Performing Organization Address [facility] Phone Number [facility] [address] [facility] [employer] [place], [place] [id number] * US Abdomen Complete (01/23/2025 9:18 PM [...] last revised on 2013. POC Device Number [id number] 3 HERBER REINATailster Blood 01/23/2025 4:58 PM CDT 01/23/2025 4:58 PM CDT Devang Henning MD LAB POCT ORDERABLES - DEVICE Final Result HERBER JIMENEZWCH [address] [facility] Department [place] [address] * POCT glucose (01/23/2025 12:15 PM CDT) Glucose, POC 107 70 - 199 mg/dL Comment: Interpretive Data Glucose is assumed to be non-fasting. Fasting Glucose reference ranges are: 0 - 150 years: 70 mg/dL - 99 mg/dL Current interpretive data was last revised on 2013. POC Device Number [id number] 3 BERLINLULY JIMENEZWCH Blood 01/23/2025 12:1 5 PM CDT 01/23/2025 12:15 PM CDT Devang Henning MD LAB POCT ORDERABLES - DEVICE Final Result Performing Organization Address [facility] de Phone Number HERBER REINACH [address] [place] [employer] [place], [place] [id number] * (ABNORMAL) eGFR (01/23/2025 6:36 AM CDT) Pathologist [facility] eGFR 7(L) >=60 mL/min/1. 73 m2 Comment: [...] ORDERABLES Final Res ult Performing Organization Address [facility] Co de Phone Number HERBER REINACH [phone] [employer] [place] [address] * (ABNORMAL) Renal function panel (01/23/2025 6:36 AM CDT) Sodium 136 135 - 145 mmol/L Potassium, pl 6.1(H) 3.3 - 4.9 mmol/L [facility] Chloride 97 97 - 110 mmol/L [facility] CO2 27 22 - 32 mmol/L [facility] Anion gap 12 2 - 15 mmol/L [facility] BUN 76(H) 6 - 25 mg/dL [facility] Creatinine 7.40(H) 0.60 - 1.10 mg/dL [facility] Glucose 190 70 - 199 mg/dL [facility] Comment: Interpretive Data Fasting glucose >/= 126 [...] 2022. Calcium 9.2 8.5 - 10.3 mg/dL [facility] Phosphorus, pl 5.0(H) 2.3 - 4.5 mg/dL [facility] Albumin 3.7 3.5 - 5.0 g/dL [facility] Blood 01/23/2025 6:36 AM CDT 01/23/2025 6:41 AM CDT us Jeffrey Osorio MD PhD LAB BLOOD ORDERABLES Final Res ult HERBER REINACH [address] [facility] [place] [address] * (ABNORMAL) POCT glucose (01/23/2025 6:17 AM CDT) [facility] Signature Glucose, POC 217(H) 70 - 199 mg/dL Comment: Interpretive Data Glucose is assumed to be non-fasting. Fasting Glucose reference ranges are: 0 - 150 years: 70 mg/dL - 99 mg/dL Current interpretive data was last revised on 2013. POC Device Number [id number] 1 [facility] Blood 01/23/2025 6:17 AM CDT 01/23/2025 6:17 AM CDT us Devang Henning MD LAB POCT ORDERABLES - DEVICE Final Result Performing Organization Address [facility] de Phone Number HERBER JIMENEZWCH [address] [facility]. [facility] [employer] [place] [address] * (ABNORMAL) POCT glucose (01/23/2025 2:08 AM CDT) Glucose, POC 229(H) 70 - 199 mg/dL Comment: Interpretive Data Glucose is assumed to be non-fasting. Fasting Glucose reference ranges are: 0 - 150 years: 70 mg/dL - 99 mg/dL Current interpretive data was last revised on 2013. POC Device Number [id number] 3 HERBER MARCANO Blood 01/23/2025 2:08 AM CDT 01/23/2025 2:08 AM CDT Jeffrey Osorio MD PhD LAB POCT ORDERABLES - DEVICE F inal Result Performing Organization Address [facility] de Phone Number [facility]BER BJWCH [address] [facility]. [facility] [employer] [place] [address] * POCT glucose (01/22/2025 11:38 PM CDT) Glucose, POC 195 70 - 199 mg/dL Comment: Interpretive Data Glucose is assumed to be non-fasting. Fasting Glucose reference ranges are: 0 - 150 years: 70 mg/dL - 99 mg/dL Current interpretive data was last revised on 2013. POC Device Number [id number] 3 HERBER JIMENEZWCH Blood 01/22/2025 11:3 8 PM CDT 01/22/2025 11:38 PM CDT us Jeffrey Osorio MD PhD LAB POCT ORDERABLES - DEVICE F inal Result Performing Organization Address [facility] Co de Phone Number [facility] B[facility] [phone] [facility]. [facility] [employer] [place] [address] * POCT glucose (01/22/2025 8:14 PM CDT) Glucose, POC 125 70 - 199 mg/dL Comment: Interpretive Data Glucose is assumed to be non-fasting. Fasting Glucose reference ranges are: 0 - 150 years: 70 mg/dL - 99 mg/dL Current interpretive data was last revised on 2013. POC Device Number [id number] 3 HERBER MARCANO Blood 01/22/2025 8:14 PM CDT 01/22/2025 8:14 PM CDT Jeffrey Osorio MD PhD LAB POCT ORDERABLES - DEVICE F inal Result Performing Organization Address [facility] de Phone Number [facility] [address] [facility] [employer] [place] [address] * POCT glucose (01/22/2025 5:25 PM CDT) Glucose, POC 112 70 - 199 mg/dL Comment: Interpretive Data Glucose is assumed to be non-fasting. Fasting Glucose reference ranges are: 0 - 150 years: 70 mg/dL - 99 mg/dL Current interpretive data was last revised on 2013. POC Device Number [id number] 4 HERBER MARCANO Blood 01/22/2025 5:25 PM CDT 01/22/2025 5:25 PM CDT Jeffrey Osorio MD PhD LAB POCT ORDERABLES - DEVICE F inal Result Performing Organization Address [facility] Co de Phone Number [facility] [address] [facility] [employer] [place], [place] [id number] * POCT glucose (01/22/2025 2:24 PM CDT) Glucose, POC 129 70 - 199 mg/dL Comment: Interpretive Data Glucose is assumed to be non-fasting. Fasting Glucose reference ranges are: 0 - 150 years: 70 mg/dL - 99 mg/dL Current interpretive data was last revised on 2013. POC Device Number [id number] 4 [facility]BER JIMENEZWCH Blood 01/22/2025 2:24 PM CDT 01/22/2025 2:24 PM CDT us Jeffrey Osorio MD PhD LAB POCT ORDERABLES - DEVICE F inal Result Performing Organization Address [facility] de Phone Number [facility] JIMENEZCH [address] [facility] [place] [address] * POCT glucose (01/22/2025 10:26 AM CDT) Glucose, POC 133 70 - 199 mg/dL Comment: Interpretive Data Glucose is assumed to be non-fasting. Fasting Glucose reference ranges are: 0 - 150 years: 70 mg/dL - 99 mg/dL Current interpretive data was last revised on 2013. POC Device Number [id number] 3 HERBER MARCANO Blood 01/22/2025 10:2 6 AM CDT 01/22/2025 10:26 AM CDT us Jeffrey Osorio MD PhD LAB POCT ORDERABLES - DEVICE F inal Result Performing Organization Address [facility] Phone Number HERBER JIMENEZCH [address] [place] [address] * POCT glucose (01/22/2025 6:07 AM CDT) Glucose, POC 109 70 - 199 mg/dL Comment: Interpretive Data Glucose is assumed to be non-fasting. Fasting Glucose reference ranges are: 0 - 150 years: 70 mg/dL - 99 mg/dL Current interpretive data was last revised on 2013. POC Device Number [id number] 4 HERBER MARCANO Blood 01/22/2025 6:07 AM CDT 01/22/2025 6:07 AM CDT us Jeffrey Osorio MD PhD LAB POCT ORDERABLES - DEVICE F inal Result Performing Organization Address [facility] de Phone Number HERBER JIMENEZCH [phone] [facility]. [facility] [employer] [place] [address] * POCT glucose (01/22/2025 2:15 AM CDT) Glucose, POC 190 70 - 199 mg/dL Comment: Interpretive Data Glucose is assumed to be non-fasting. Fasting Glucose reference ranges are: 0 - 150 years: 70 mg/dL - 99 mg/dL Current interpretive data was last revised on 2013. POC Device Number [id number] 3 HERBER MARCANO Blood 01/22/2025 2:15 AM CDT 01/22/2025 2:15 AM CDT us Jeffrey Osorio MD PhD LAB POCT ORDERABLES - DEVICE F inal Result Performing Organization Address [facility] de Phone Number HERBER BJWCH [phone] [facility]. [facility] [employer] [place] [address] * (ABNORMAL) POCT glucose (01/21/2025 10:28 PM CDT) Glucose, POC 340(H) 70 - 199 mg/dL Comment: Interpretive Data Glucose is assumed to be non-fasting. Fasting Glucose reference ranges are: 0 - 150 years: 70 mg/dL - 99 mg/dL Current interpretive data was last revised on 2013. POC Device Number [id number] 4 HERBER MARCANO Blood 01/21/2025 10:2 8 PM CDT 01/21/2025 10:28 PM CDT us Jeffrey Osorio MD PhD LAB POCT ORDERABLES - DEVICE F inal Result Performing Organization Address [facility] Co de Phone Number HERBER BJWCH [phone] [facility]. [facility] [employer] [place] [address] * POCT glucose (01/21/2025 5:23 PM CDT) Glucose, POC 195 70 - 199 mg/dL Comment: Interpretive Data Glucose is assumed to be non-fasting. Fasting Glucose reference ranges are: 0 - 150 years: 70 mg/dL - 99 mg/dL Current interpretive data was last revised on 2013. POC Device Number [id number] 4 HERBER MARCANO Blood 01/21/2025 5:23 PM CDT 01/21/2025 5:23 PM CDT Jeffrey Osorio MD PhD LAB POCT ORDERABLES - DEVICE F inal Result Performing Organization Address [facility] de Phone Number [facility] [address] [facility] [employer] [place] [address] * POCT glucose (01/21/2025 12:29 PM CDT) Glucose, POC 194 70 - 199 mg/dL Comment: Interpretive Data Glucose is assumed to be non-fasting. Fasting Glucose reference ranges are: 0 - 150 years: 70 mg/dL - 99 mg/dL Current interpretive data was last revised on 2013. POC Device Number [id number] 3 HERBER MARCANO Blood 01/21/2025 12:2 9 PM CDT 01/21/2025 12:29 PM CDT Jeffrey Osorio MD PhD LAB POCT ORDERABLES - DEVICE F inal Result Performing Organization Address [facility] de Phone Number [facility] [address] [facility] [employer] [place] [address] * POCT glucose (01/21/2025 8:02 AM CDT) Glucose, POC 160 70 - 199 mg/dL Comment: Interpretive Data Glucose is assumed to be non-fasting. Fasting Glucose reference ranges are: 0 - 150 years: 70 mg/dL - 99 mg/dL Current interpretive data was last revised on 2013. POC Device Number [id number] 3 BERLINNER BARBARAWCH Blood 01/21/2025 8:02 AM CDT 01/21/2025 8:02 AM CDT us Jeffrey Osorio MD PhD LAB POCT ORDERABLES - DEVICE F inal Result Performing Organization Address [facility] Co de Phone Number HERBER JIMENEZCH [address] [facility]. [facility] [employer] [place] [address] * POCT glucose (01/21/2025 6:05 AM CDT) Glucose, POC 184 70 - 199 mg/dL Comment: Interpretive Data Glucose is assumed to be non-fasting. Fasting Glucose reference ranges are: 0 - 150 years: 70 mg/dL - 99 mg/dL Current interpretive data was last revised on 2013. POC Device Number [id number] 3 HERBER MARCANO Blood 01/21/2025 6:05 AM CDT 01/21/2025 6:05 AM CDT us Jeffrey Osorio MD PhD LAB POCT ORDERABLES - DEVICE F inal Result Performing Organization Address [facility] de Phone Number HERBER JIMENEZCH [phone] [facility] [place] [address] * POCT glucose (01/21/2025 1:50 AM CDT) Glucose, POC 78 70 - 199 mg/dL Comment: Interpretive Data Glucose is assumed to be non-fasting. Fasting Glucose reference ranges are: 0 - 150 years: 70 mg/dL - 99 mg/dL Current interpretive data was last revised on 2013. POC Device Number [id number] 3 HERBER MARCANO Blood 01/21/2025 1:50 AM CDT 01/21/2025 1:50 AM CDT us Jeffrey Osorio MD PhD LAB POCT ORDERABLES - DEVICE F inal Result Performing Organization Address [facility] Co de Phone Number HERBER BJCH [phone] [facility] [place] [address] * POCT glucose (01/20/2025 9:49 PM CDT) Glucose, POC 138 70 - 199 mg/dL Comment: Interpretive Data Glucose is assumed to be non-fasting. Fasting Glucose reference ranges are: 0 - 150 years: 70 mg/dL - 99 mg/dL Current interpretive data was last revised on 2013. POC Device Number [id number] 3 HERBER MARCANO Blood 01/20/2025 9:49 PM CDT 01/20/2025 9:49 PM CDT Jeffrey Osorio MD PhD LAB POCT ORDERABLES - DEVICE F inal Result Performing Organization Address [facility] de Phone Number [facility] [address] [facility] [employer] [place], [place] [address] * POCT glucose (01/20/2025 4:28 PM CDT) Glucose, POC 129 70 - 199 mg/dL Comment: Interpretive Data Glucose is assumed to be non-fasting. Fasting Glucose reference ranges are: 0 - 150 years: 70 mg/dL - 99 mg/dL Current interpretive data was last revised on 2013. POC Device Number [id number] 3 HERBER MARCANO Blood 01/20/2025 4:28 PM CDT 01/20/2025 4:28 PM CDT Jeffrey Osorio MD PhD LAB POCT ORDERABLES - DEVICE F inal Result Performing Organization Address [facility] Co de Phone Number [facility] [address] [facility] [employer] [place], [place] [address] * POCT glucose (01/20/2025 1:07 PM CDT) Glucose, POC 102 70 - 199 mg/dL Comment: Interpretive Data Glucose is assumed to be non-fasting. Fasting Glucose reference ranges are: 0 - 150 years: 70 mg/dL - 99 mg/dL Current interpretive data was last revised on 2013. POC Device Number [id number] 3 HERBER BJWCH Blood 01/20/2025 1:07 PM CDT 01/20/2025 1:07 PM CDT Jeffrey Osorio MD PhD LAB POCT ORDERABLES - DEVICE F inal Result Performing Organization Address [facility] Co de Phone Number HERBER JIMENEZCH [address] [place] [facility] [employer] [place] [address] * (ABNORMAL) eGFR (01/20/2025 10:23 AM CDT) [...] ORDERABLES Final Res ult Performing Organization Address [facility]/ZIP Co de Phone Number HERBER JIMENEZWCH [address] [facility] Department of [employer] [place] [address] * Differential, auto (01/20/2025 10:23 AM CDT) Neutrophil abs 2.98 1.50 - 6.50 K/cumm Imm gran abs 0.01 0.00 - 0.10 K/cumm [facility] Lymphocyte abs 1.16 0.80 - 3.30 K/cumm [facility] Monocyte abs 0.34 0.20 - 0.80 K/cumm [facility] Eosinophil abs 0.12 0.00 - 0.50 K/cumm [facility] Basophil abs 0.00 0.00 - 0.10 K/cumm [facility] Neutrophil pct 64.6 % [facility] Comment: Interpretive Data Percent cell count reference ranges are not reported, since discordance with absolute values may lead to misinterpretation of CBC data. Current Interpretive Data was last revised on 2017. Imm gran pct 0.2 % [facility] Comment: Interpretive Data Percent cell count reference ranges are not reported, since discordance with absolute values may lead to misinterpretation of CBC data. Current Interpretive Data was last revised on 2017. Lymphocyte pct 25.2 % [facility] Comment: Interpretive Data Percent cell count reference ranges are not reported, since discordance with absolute values may lead to misinterpretation of CBC data. Current Interpretive Data was last revised on 2017. Monocyte pct 7.4 % [facility] Comment: Interpretive Data Percent cell count reference ranges are not reported, since discordance with absolute values may lead to misinterpretation of CBC data. Current Interpretive Data was last revised on 2017. Eosinophil pct 2.6 % [facility] Comment: Interpretive Data Percent cell count reference ranges are not reported, since discordance with absolute values may lead to misinterpretation of CBC data. Current Interpretive Data was last revised on 2017. Basophil pct 0.0 % [facility] Comment: Interpretive Data Percent cell count reference ranges are not reported, since discordance with absolute values may lead to misinterpretation of CBC data. Current Interpretive Data was last revised on 2017. Blood 01/20/2025 10:2 3 AM CDT 01/20/2025 10:26 AM CDT Jeffrey Osorio MD PhD LAB BLOOD ORDERABLES Final Res ult HERBER MARCANO [id number] [employer] Department of [employer] [place] [address] * (ABNORMAL) CBC with auto differential (01/20/2025 [...] RDW SD 51.6(H) 35.7 - 48.1 fL [facility] NRBC abs 0.00 0.00 - 0.01 K/cumm [facility] Blood 01/20/2025 10:2 3 AM CDT 01/20/2025 10:26 AM CDT Jeffrey Osorio MD PhD LAB BLOOD ORDERABLES Final Res ult HERBER MARCANO [id number] [employer] Department of [employer] [place] [address] * (ABNORMAL) Renal function panel (01/20/2025 10:23 AM CDT) Sodium 137 135 - 145 mmol/L Potassium, pl 5.0(H) 3.3 - 4.9 mmol/L [facility] Chloride 100 97 - 110 mmol/L [facility] CO2 28 22 - 32 mmol/L [facility] Anion gap 9 2 - 15 mmol/L [facility] BUN 42(H) 6 - 25 mg/dL [facility] Creatinine 4.95(H) 0.60 - 1.10 mg/dL [facility] Glucose 110 70 - 199 mg/dL [facility] Comment: Interpretive Data Fasting glucose >/= 126 [...] 2022. Calcium 8.2(L) 8.5 - 10.3 mg/dL [facility] Phosphorus, pl 3.7 2.3 - 4.5 mg/dL [facility] Albumin 3.6 3.5 - 5.0 g/dL [facility] Blood 01/20/2025 10:2 3 AM CDT 01/20/2025 10:26 AM CDT us Jeffrey Osorio MD PhD LAB BLOOD ORDERABLES Final Res ult [facility] [address] [facility] Department of [employer] [place] [address] * POCT glucose (01/20/2025 9:51 AM CDT) [facility] Glucose, POC 111 70 - 199 mg/dL Comment: Interpretive Data Glucose is assumed to be non-fasting. Fasting Glucose reference ranges are: 0 - 150 years: 70 mg/dL - 99 mg/dL Current interpretive data was last revised on 2013. POC Device Number [id number] 3 [facility] Blood 01/20/2025 9:51 AM CDT 01/20/2025 9:51 AM CDT us Jeffrey Osorio MD PhD LAB POCT ORDERABLES - DEVICE F inal Result Performing Organization Address [facility] Co de Phone Number HERBER JIMENEZCH [address] [facility]. [facility] [employer] [place] [address] * POCT glucose (01/20/2025 8:45 AM CDT) Glucose, POC 115 70 - 199 mg/dL Comment: Interpretive Data Glucose is assumed to be non-fasting. Fasting Glucose reference ranges are: 0 - 150 years: 70 mg/dL - 99 mg/dL Current interpretive data was last revised on 2013. POC Device Number [id number] 3 HERBER JIMENEZWCYDNEY Blood 01/20/2025 8:45 AM CDT 01/20/2025 8:45 AM CDT us Jeffrey Osorio MD PhD LAB POCT ORDERABLES - DEVICE F inal Result Performing Organization Address [facility] de Phone Number [facility] [address] [facility] [place] [address] * (ABNORMAL) POCT glucose (01/20/2025 8:02 AM CDT) Glucose, POC 67(L) 70 - 199 mg/dL Comment: Interpretive Data Glucose is assumed to be non-fasting. Fasting Glucose reference ranges are: 0 - 150 years: 70 mg/dL - 99 mg/dL Current interpretive data was last revised on 2013. POC Device Number [id number] 3 CERNER BARBARAWCH Blood 01/20/2025 8:02 AM CDT 01/20/2025 8:02 AM CDT us Jeffrey Osorio MD PhD LAB POCT ORDERABLES - DEVICE F inal Result Performing Organization Address [facility] Co de Phone Number [facility] [address] [facility]. [facility] [employer] [place] [address] * POCT glucose (01/20/2025 5:49 AM CDT) Glucose, POC 122 70 - 199 mg/dL Comment: Interpretive Data Glucose is assumed to be non-fasting. Fasting Glucose reference ranges are: 0 - 150 years: 70 mg/dL - 99 mg/dL Current interpretive data was last revised on 2013. POC Device Number [id number] 3 HERBER JIMENEZWCYDNEY Blood 01/20/2025 5:49 AM CDT 01/20/2025 5:49 AM CDT Jeffrey Osorio MD PhD LAB POCT ORDERABLES - DEVICE F inal Result Performing Organization Address [facility] de Phone Number [facility] [address] [employer] [facility] [employer] [place] [address] * POCT glucose (01/20/2025 1:57 AM CDT) Glucose, POC 127 70 - 199 mg/dL Comment: Interpretive Data Glucose is assumed to be non-fasting. Fasting Glucose reference ranges are: 0 - 150 years: 70 mg/dL - 99 mg/dL Current interpretive data was last revised on 2013. POC Device Number [id number] 4 HERBER MARCANO Blood 01/20/2025 1:57 AM CDT 01/20/2025 1:57 AM CDT us Jeffrey Osorio MD PhD LAB POCT ORDERABLES - DEVICE F inal Result Performing Organization Address [facility] Co de Phone Number [facility] [address] [employer] [facility] [employer] [place] [address] * (ABNORMAL) POCT glucose (01/19/2025 10:01 PM CDT) Glucose, POC 243(H) 70 - 199 mg/dL Comment: Interpretive Data Glucose is assumed to be non-fasting. Fasting Glucose reference ranges are: 0 - 150 years: 70 mg/dL - 99 mg/dL Current interpretive data was last revised on 2013. POC Device Number [id number] HERBER JIMENEZWCH Glucose comment 1 RN/MD Notified HERBER MARCANO Blood 01/19/2025 10:0 1 PM CDT 01/19/2025 10:01 PM CDT Jeffrey Osorio MD PhD LAB POCT ORDERABLES - DEVICE F inal Result Performing Organization Address [facility] de Phone Number HERBER BJWCH [address] [facility] [employer] [place] [address] * POCT glucose (01/19/2025 6:01 PM CDT) Glucose, POC 98 70 - 199 mg/dL Comment: Interpretive Data Glucose is assumed to be non-fasting. Fasting Glucose reference ranges are: 0 - 150 years: 70 mg/dL - 99 mg/dL Current interpretive data was last revised on 2013. POC Device Number [id number] 4 BERLINNER BARBARAWCH Blood 01/19/2025 6:01 PM CDT 01/19/2025 6:01 PM CDT Jeffrey Osorio MD PhD LAB POCT ORDERABLES - DEVICE F inal Result Performing Organization Address [facility] de Phone Number [facility] [address] [facility] [employer] [place] [address] * POCT glucose (01/19/2025 4:18 PM CDT) Glucose, POC 75 70 - 199 mg/dL Comment: Interpretive Data Glucose is assumed to be non-fasting. Fasting Glucose reference ranges are: 0 - 150 years: 70 mg/dL - 99 mg/dL Current interpretive data was last revised on 2013. POC Device Number [id number] 4 BERLINNER BARBARAWCH Blood 01/19/2025 4:18 PM CDT 01/19/2025 4:18 PM CDT us Jeffrey Osorio MD PhD LAB POCT ORDERABLES - DEVICE F inal Result Performing Organization Address [facility] Co de Phone Number HERBER JIMENEZCH [address] [facility]. [facility] [employer] [place] [address] * POCT glucose (01/19/2025 11:51 AM CDT) Glucose, POC 114 70 - 199 mg/dL Comment: Interpretive Data Glucose is assumed to be non-fasting. Fasting Glucose reference ranges are: 0 - 150 years: 70 mg/dL - 99 mg/dL Current interpretive data was last revised on 2013. POC Device Number [id number] 4 HERBER MARCANO Blood 01/19/2025 11:5 1 AM CDT 01/19/2025 11:51 AM CDT us Jeffrey Osorio MD PhD LAB POCT ORDERABLES - DEVICE F inal Result Performing Organization Address [facility] de Phone Number HERBER JIMENEZWCH [address] [facility]. [facility] [employer] [place] [address] * POCT glucose (01/19/2025 10:04 AM CDT) Glucose, POC 137 70 - 199 mg/dL Comment: Interpretive Data Glucose is assumed to be non-fasting. Fasting Glucose reference ranges are: 0 - 150 years: 70 mg/dL - 99 mg/dL Current interpretive data was last revised on 2013. POC Device Number [id number] 4 HERBER MARCANO Blood 01/19/2025 10:0 4 AM CDT 01/19/2025 10:04 AM CDT us Jeffrey Osorio MD PhD LAB POCT ORDERABLES - DEVICE F inal Result Performing Organization Address [facility] Co de Phone Number HERBER JIMENEZCH [address] [facility] [place] [address] * POCT glucose (01/19/2025 6:33 AM CDT) Glucose, POC 71 70 - 199 mg/dL Comment: Interpretive Data Glucose is assumed to be non-fasting. Fasting Glucose reference ranges are: 0 - 150 years: 70 mg/dL - 99 mg/dL Current interpretive data was last revised on 2013. POC Device Number [id number] 3 HERBER MARCANO Blood 01/19/2025 6:33 AM CDT 01/19/2025 6:33 AM CDT Jeffrey Osorio MD PhD LAB POCT ORDERABLES - DEVICE F inal Result Performing Organization Address [facility] de Phone Number [facility] [address] [facility] [employer] [place] [address] * POCT glucose (01/19/2025 2:13 AM CDT) Glucose, POC 104 70 - 199 mg/dL Comment: Interpretive Data Glucose is assumed to be non-fasting. Fasting Glucose reference ranges are: 0 - 150 years: 70 mg/dL - 99 mg/dL Current interpretive data was last revised on 2013. POC Device Number [id number] 3 HERBER MARCANO Blood 01/19/2025 2:13 AM CDT 01/19/2025 2:13 AM CDT Jeffrey Osorio MD PhD LAB POCT ORDERABLES - DEVICE F inal Result Performing Organization Address [facility] de Phone Number [facility] [address] [facility] [employer] [place], [place] [address] * POCT glucose (01/18/2025 9:50 PM CDT) Glucose, POC 97 70 - 199 mg/dL Comment: Interpretive Data Glucose is assumed to be non-fasting. Fasting Glucose reference ranges are: 0 - 150 years: 70 mg/dL - 99 mg/dL Current interpretive data was last revised on 2013. POC Device Number [id number] 3 HERBER MARCANO Blood 01/18/2025 9:50 PM CDT 01/18/2025 9:50 PM CDT us Jeffrey Osorio MD PhD LAB POCT ORDERABLES - DEVICE F inal Result Performing Organization Address [facility] Phone Number [facility] [address] [place] [address] * POCT glucose (01/18/2025 5:59 PM CDT) Glucose, POC 171 70 - 199 mg/dL Comment: Interpretive Data Glucose is assumed to be non-fasting. Fasting Glucose reference ranges are: 0 - 150 years: 70 mg/dL - 99 mg/dL Current interpretive data was last revised on 2013. POC Device Number [id number] 1 HERBER MARCANO Blood 01/18/2025 5:59 PM CDT 01/18/2025 5:59 PM CDT us Jeffrey Osorio MD PhD LAB POCT ORDERABLES - DEVICE F inal Result Performing Organization Address [facility] Phone Number [facility] [address] [place] [address] * POCT glucose (01/18/2025 12:15 PM CDT) Glucose, POC 143 70 - 199 mg/dL Comment: Interpretive Data Glucose is assumed to be non-fasting. Fasting Glucose reference ranges are: 0 - 150 years: 70 mg/dL - 99 mg/dL Current interpretive data was last revised on 2013. POC Device Number [id number] 3 BERLINNER BARBARAWCH Blood 01/18/2025 12:1 5 PM CDT 01/18/2025 12:15 PM CDT us Jeffrey Osorio MD PhD LAB POCT ORDERABLES - DEVICE F inal Result Performing Organization Address [facility] de Phone Number HERBER JIMENEZCH [phone] [facility]. [facility] [employer] [place], [place] [address] * POCT glucose (01/18/2025 6:08 AM CDT) Glucose, POC 92 70 - 199 mg/dL Comment: Interpretive Data Glucose is assumed to be non-fasting. Fasting Glucose reference ranges are: 0 - 150 years: 70 mg/dL - 99 mg/dL Current interpretive data was last revised on 2013. POC Device Number [id number] 1 HERBER JIMENEZWCH Blood 01/18/2025 6:08 AM CDT 01/18/2025 6:08 AM CDT Jeffrey Osorio MD PhD LAB POCT ORDERABLES - DEVICE F inal Result Performing Organization Address [facility] de Phone Number HERBER JIMENEZCH [address] [facility]. [facility] [employer] [place] [address] * POCT glucose (01/18/2025 2:09 AM CDT) Glucose, POC 107 70 - 199 mg/dL Comment: Interpretive Data Glucose is assumed to be non-fasting. Fasting Glucose reference ranges are: 0 - 150 years: 70 mg/dL - 99 mg/dL Current interpretive data was last revised on 2013. POC Device Number [id number] 4 CERLULY JIMENEZWCH Blood 01/18/2025 2:0 9 AM CDT 01/18/2025 2:09 AM CDT us Jeffrey Osorio MD PhD LAB POCT ORDERABLES - DEVICE F inal Result Performing Organization Address [facility] de Phone Number [facility] B[facility] [address] [facility]. [facility] [employer] [place] [address] * POCT glucose (01/17/2025 7:36 PM CDT) Glucose, POC 131 70 - 199 mg/dL Comment: Interpretive Data Glucose is assumed to be non-fasting. Fasting Glucose reference ranges are: 0 - 150 years: 70 mg/dL - 99 mg/dL Current interpretive data was last revised on 2013. POC Device Number [id number] 4 HERBER JIMENEZWCH Blood 01/17/2025 7:36 PM CDT 01/17/2025 7:36 PM CDT Jeffrey Osorio MD PhD LAB POCT ORDERABLES - DEVICE F inal Result Performing Organization Address [facility] de Phone Number [facility] [facility] [address] [facility] [employer] [place], [place] [id number] * POCT glucose (01/17/2025 5:40 PM CDT) Glucose, POC 161 70 - 199 mg/dL Comment: Interpretive Data Glucose is assumed to be non-fasting. Fasting Glucose reference ranges are: 0 - 150 years: 70 mg/dL - 99 mg/dL Current interpretive data was last revised on 2013. POC Device Number [id number] 3 HERBER JIMENEZWCH Blood 01/17/2025 5:40 PM CDT 01/17/2025 5:40 PM CDT Jeffrey Osorio MD PhD LAB POCT ORDERABLES - DEVICE F inal Result Performing Organization Address [facility] de Phone Number [facility] [address] [facility] [employer] [place] [address] * POCT glucose (01/17/2025 12:02 PM CDT) Glucose, POC 149 70 - 199 mg/dL Comment: Interpretive Data Glucose is assumed to be non-fasting. Fasting Glucose reference ranges are: 0 - 150 years: 70 mg/dL - 99 mg/dL Current interpretive data was last revised on 2013. POC Device Number [id number] 4 CERNER BARBARAWCH Blood 01/17/2025 12:0 2 PM CDT 01/17/2025 12:02 PM CDT us Jeffrey Osorio MD PhD LAB POCT ORDERABLES - DEVICE F inal Result Performing Organization Address [facility] Co de Phone Number HERBER REINACH [address] [facility]. [facility] [employer] [place] [address] * POCT glucose (01/17/2025 8:19 AM CDT) Glucose, POC 198 70 - 199 mg/dL Comment: Interpretive Data Glucose is assumed to be non-fasting. Fasting Glucose reference ranges are: 0 - 150 years: 70 mg/dL - 99 mg/dL Current interpretive data was last revised on 2013. POC Device Number [id number] 1 HERBER MARCANO Blood 01/17/2025 8:19 AM CDT 01/17/2025 8:19 AM CDT us Jeffrey Osorio MD PhD LAB POCT ORDERABLES - DEVICE F inal Result Performing Organization Address [facility] de Phone Number HER[facility] JIMENEZCH [address] [facility] [place] [address] * POCT glucose (01/17/2025 3:39 AM CDT) Glucose, POC 98 70 - 199 mg/dL Comment: Interpretive Data Glucose is assumed to be non-fasting. Fasting Glucose reference ranges are: 0 - 150 years: 70 mg/dL - 99 mg/dL Current interpretive data was last revised on 2013. POC Device Number [id number] 1 BERLINNER BARBARAWCYDNEY Blood 01/17/2025 3:39 AM CDT 01/17/2025 3:39 AM CDT us Jeffrey Osorio MD PhD LAB POCT ORDERABLES - DEVICE F inal Result Performing Organization Address [facility] Co de Phone Number HER[facility] JIMENEZCH [address] [facility]. [facility] [employer] [place] [address] * POCT glucose (01/17/2025 1:03 AM CDT) Glucose, POC 101 70 - 199 mg/dL Comment: Interpretive Data Glucose is assumed to be non-fasting. Fasting Glucose reference ranges are: 0 - 150 years: 70 mg/dL - 99 mg/dL Current interpretive data was last revised on 2013. POC Device Number [id number] 4 HERBER MARCANO Blood 01/17/2025 1:03 AM CDT 01/17/2025 1:03 AM CDT Jeffrey Osorio MD PhD LAB POCT ORDERABLES - DEVICE F inal Result Performing Organization Address [facility] de Phone Number [facility] [address] [facility] [employer] [place] [address] * POCT glucose (01/16/2025 11:58 PM CDT) Glucose, POC 110 70 - 199 mg/dL Comment: Interpretive Data Glucose is assumed to be non-fasting. Fasting Glucose reference ranges are: 0 - 150 years: 70 mg/dL - 99 mg/dL Current interpretive data was last revised on 2013. POC Device Number [id number] 4 HERBER MARCANO Blood 01/16/2025 11:5 8 PM CDT 01/16/2025 11:58 PM CDT Jeffrey Osorio MD PhD LAB POCT ORDERABLES - DEVICE F inal Result Performing Organization Address [facility] de Phone Number [facility] [address] [facility] [employer] [place] [address] * POCT glucose (01/16/2025 11:40 PM CDT) Glucose, POC 98 70 - 199 mg/dL Comment: Interpretive Data Glucose is assumed to be non-fasting. Fasting Glucose reference ranges are: 0 - 150 years: 70 mg/dL - 99 mg/dL Current interpretive data was last revised on 2013. POC Device Number [id number] 4 BERLINNER BARBARAWCH Blood 01/16/2025 11:4 0 PM CDT 01/16/2025 11:40 PM CDT us Jeffrey Osorio MD PhD LAB POCT ORDERABLES - DEVICE F inal Result Performing Organization Address [facility] Phone Number [facility] [address] [facility] [employer] [place] [address] * POCT glucose (01/16/2025 11:23 PM CDT) Glucose, POC 93 70 - 199 mg/dL Comment: Interpretive Data Glucose is assumed to be non-fasting. Fasting Glucose reference ranges are: 0 - 150 years: 70 mg/dL - 99 mg/dL Current interpretive data was last revised on 2013. POC Device Number [id number] CERNER BARBARAWCYDNEY Blood 01/16/2025 11:2 3 PM CDT 01/16/2025 11:23 PM CDT us Jeffrey Osorio MD PhD LAB POCT ORDERABLES - DEVICE F inal Result Performing Organization Address [facility] Phone Number [facility] [address] [facility] [employer] [place] [address] * (ABNORMAL) POCT glucose (01/16/2025 11:04 PM CDT) Glucose, POC 57(L) 70 - 199 mg/dL Comment: Interpretive Data Glucose is assumed to be non-fasting. Fasting Glucose reference ranges are: 0 - 150 years: 70 mg/dL - 99 mg/dL Current interpretive data was last revised on 2013. POC Device Number [id number] 4 CERNER BARBARAWCH Blood 01/16/2025 11:0 4 PM CDT 01/16/2025 11:04 PM CDT us Jeffrey Osorio MD PhD LAB POCT ORDERABLES - DEVICE F inal Result Performing Organization Address [facility] Co de Phone Number HERBER JIMENEZCH [address] [facility]. [facility] [employer] [place] [address] * (ABNORMAL) POCT glucose (01/16/2025 10:46 PM CDT) Glucose, POC 58(L) 70 - 199 mg/dL Comment: Interpretive Data Glucose is assumed to be non-fasting. Fasting Glucose reference ranges are: 0 - 150 years: 70 mg/dL - 99 mg/dL Current interpretive data was last revised on 2013. POC Device Number [id number] 4 HERBER REINATailster Blood 01/16/2025 10:4 6 PM CDT 01/16/2025 10:46 PM CDT Jeffrey Osorio MD PhD LAB POCT ORDERABLES - DEVICE F inal Result Performing Organization Address [facility] de Phone Number [facility] WCH [phone] [facility]. [facility] [employer] [place] [address] * POCT glucose (01/16/2025 7:48 PM CDT) Glucose, POC 186 70 - 199 mg/dL Comment: Interpretive Data Glucose is assumed to be non-fasting. Fasting Glucose reference ranges are: 0 - 150 years: 70 mg/dL - 99 mg/dL Current interpretive data was last revised on 2013. POC Device Number [id number] 4 HERBER MARCANO Blood 01/16/2025 7:48 PM CDT 01/16/2025 7:48 PM CDT us Jeffrey Osorio MD PhD LAB POCT ORDERABLES - DEVICE F inal Result Performing Organization Address [facility] Co de Phone Number [facility] [address] [facility]. [facility] [employer] [place] [address] * POCT glucose (01/16/2025 4:32 PM CDT) Glucose, POC 134 70 - 199 mg/dL Comment: Interpretive Data Glucose is assumed to be non-fasting. Fasting Glucose reference ranges are: 0 - 150 years: 70 mg/dL - 99 mg/dL Current interpretive data was last revised on 2013. POC Device Number [id number] 4 HERBER MARCANO Blood 01/16/2025 4:32 PM CDT 01/16/2025 4:32 PM CDT Jeffrey Osorio MD PhD LAB POCT ORDERABLES - DEVICE F inal Result Performing Organization Address [facility] Phone Number [facility] [address] [facility] [employer] [place], [place] [id number] * POCT glucose (01/16/2025 12:40 PM CDT) Glucose, POC 195 70 - 199 mg/dL Comment: Interpretive Data Glucose is assumed to be non-fasting. Fasting Glucose reference ranges are: 0 - 150 years: 70 mg/dL - 99 mg/dL Current interpretive data was last revised on 2013. POC Device Number [id number] 4 HERBER JIMENEZCYDNEY Blood 01/16/2025 12:4 0 PM CDT 01/16/2025 12:40 PM CDT Jeffrey Osorio MD PhD LAB POCT ORDERABLES - DEVICE F inal Result Performing Organization Address [facility] Phone Number [facility] [address] [facility] [employer] [place], [place] [id number] * (ABNORMAL) POCT glucose (01/16/2025 9:13 AM CDT) Glucose, POC 210(H) 70 - 199 mg/dL Comment: Interpretive Data Glucose is assumed to be non-fasting. Fasting Glucose reference ranges are: 0 - 150 years: 70 mg/dL - 99 mg/dL Current interpretive data was last revised on 2013. POC Device Number [id number] 4 HERBER BJWCH Blood 01/16/2025 9:13 AM CDT 01/16/2025 9:13 AM CDT Jeffrey Osorio MD PhD LAB POCT ORDERABLES - DEVICE F inal Result Performing Organization Address [facility] Co de Phone Number [facility] [address] [place] [address] * (ABNORMAL) eGFR (01/16/2025 6:49 [...] ORDERABLES Marli l Result Performing Organization Address [facility]/ZIP Co de Phone Number HERBER BJW[facility] [address] [employer] [facility] [employer] [place], [place] [phone] * (ABNORMAL) CBC without differential (01/16/2025 6:49 AM CDT) WBC 5.02 3.80 - 9.90 K/cumm Hgb 10.1(L) 11.9 - 15.5 g/dL [facility] Hct 32.7(L) 35.6 - 45.5 % [facility] Plt 396 150 - 400 K/cumm [facility] MPV 10.3 9.1 - 12.3 fL [facility] RBC 3.61(L) 3.90 - 5.20 M/cumm [facility] MCV 90.6 81.3 - 96.4 fL [facility] MCH 28.0 27.1 - 33.3 pg [facility] MCHC 30.9(L) 32.3 - 35.7 g/dL [facility] RDW CV 15.4(H) 11.1 - 14.9 % [facility] RDW SD 50.6(H) 35.7 - 48.1 fL [facility] NRBC abs 0.00 0.00 - 0.01 K/cumm [facility] Blood 01/16/2025 6:49 AM CDT 01/16/2025 7:01 AM CDT us Parag Xie MD LAB BLOOD ORDERABLES Marli lipscomb Result HERBER REINA [address] [facility]. [place] [address] * (ABNORMAL) Basic metabolic panel (01/16/2025 6:49 AM CDT) [facility] Sodium 137 135 - 145 mmol/L Potassium, pl 4.5 3.3 - 4.9 mmol/L [facility] Chloride 97 97 - 110 mmol/L [facility] CO2 26 22 - 32 mmol/L [facility] Anion gap 14 2 - 15 mmol/L [facility] BUN 68(H) 6 - 25 mg/dL [facility] Creatinine 7.90(H) 0.60 - 1.10 mg/dL [facility] Glucose 126 70 - 199 mg/dL [facility] Comment: Interpretive Data Fasting glucose >/= 126 [...] Calcium 8.7 8.5 - 10.3 mg/dL [facility] Blood 01/16/2025 6:49 AM CDT 01/16/2025 7:01 AM CDT Parag Xie MD LAB BLOOD ORDERABLES Marli l Result Performing Organization Address [facility] Co de Phone Number [facility] [address] [place] [address] * POCT glucose (01/16/2025 3:16 AM CDT) Glucose, POC 112 70 - 199 mg/dL Comment: Interpretive Data Glucose is assumed to be non-fasting. Fasting Glucose reference ranges are: 0 - 150 years: 70 mg/dL - 99 mg/dL Current interpretive data was last revised on 2013. POC Device Number [id number] 1 [facility] Blood 01/16/2025 3:16 AM CDT 01/16/2025 3:16 AM CDT Parag Xie MD LAB POCT ORDERABLES - DEV ICE Final Result Performing Organization Address [facility] Co de Phone Number [facility] [address] [employer] [facility] [employer] [place], [place] [phone] * POCT glucose (01/15/2025 11:41 PM CDT) Glucose, POC 72 70 - 199 mg/dL Comment: Interpretive Data Glucose is assumed to be non-fasting. Fasting Glucose reference ranges are: 0 - 150 years: 70 mg/dL - 99 mg/dL Current interpretive data was last revised on 2013. POC Device Number [id number] 1 HERBER MARCANO Blood 01/15/2025 11:4 1 PM CDT 01/15/2025 11:41 PM CDT Parag Xie MD LAB POCT ORDERABLES - DEV ICE Final Result Performing Organization Address [facility] de Phone Number [facility] JIMENEZWCH [address] [facility] [employer] [place] [address] * POCT glucose (01/15/2025 8:45 PM CDT) Glucose, POC 85 70 - 199 mg/dL Comment: Interpretive Data Glucose is assumed to be non-fasting. Fasting Glucose reference ranges are: 0 - 150 years: 70 mg/dL - 99 mg/dL Current interpretive data was last revised on 2013. POC Device Number [id number] 1 HERBER MARCANO Blood 01/15/2025 8:45 PM CDT 01/15/2025 8:45 PM CDT Parag Xie MD LAB POCT ORDERABLES - DEV ICE Final Result Performing Organization Address [facility] de Phone Number [facility] [address] [facility] [employer] [place] [address] * POCT glucose (01/15/2025 7:01 PM CDT) Glucose, POC 121 70 - 199 mg/dL Comment: Interpretive Data Glucose is assumed to be non-fasting. Fasting Glucose reference ranges are: 0 - 150 years: 70 mg/dL - 99 mg/dL Current interpretive data was last revised on 2013. POC Device Number [id number] 1 HERBER MARCANO Blood 01/15/2025 7:01 PM CDT 01/15/2025 7:01 PM CDT Parag Xie MD LAB POCT ORDERABLES - DEV ICE Final Result [facility] [address] [facility]. [place] [address] * POCT hCG, urine (01/15/2025 4:15 PM [...] acid stone formation. Source: [facility] [employer] Current Interpretive Data was last revised on [...] - GENERAL ORDERABLES Final Result HERBER JIMENEZCH [address] [facility] [place] [address] * (ABNORMAL) Urinalysis, microscopic only (01/15/2025 4:12 [...] ORDERABLE S Final Result Performing Organization Address [facility] Co de Phone Number [facility] JIMENEZCH [phone] [employer] [place] [address] * (ABNORMAL) eGFR (01/15/2025 3:18 PM CDT) [...] BLOOD ORDERABLES Final Result Performing Organization Address [facility]/ZIP Co de Phone Number [facility] JIMENEZWCH [address] [employer] [place] [address] * Differential, auto (01/15/2025 3:18 PM CDT) Neutrophil abs 2.90 1.50 - 6.50 K/cumm Imm gran abs 0.02 0.00 - 0.10 K/cumm HERBER MARCANO Lymphocyte abs 1.39 0.80 - 3.30 K/cumm [facility] Monocyte abs 0.37 0.20 - 0.80 K/cumm [facility] Eosinophil abs 0.07 0.00 - 0.50 K/cumm [facility] Basophil abs 0.01 0.00 - 0.10 K/cumm [facility] Neutrophil pct 60.9 % [facility] Comment: Interpretive Data Percent cell count reference ranges are not reported, since discordance with absolute values may lead to misinterpretation of CBC data. Current Interpretive Data was last revised on 2017. Imm gran pct 0.4 % [facility] Comment: Interpretive Data Percent cell count reference ranges are not reported, since discordance with absolute values may lead to misinterpretation of CBC data. Current Interpretive Data was last revised on 2017. Lymphocyte pct 29.2 % [facility] Comment: Interpretive Data Percent cell count reference ranges are not reported, since discordance with absolute values may lead to misinterpretation of CBC data. Current Interpretive Data was last revised on 2017. Monocyte pct 7.8 % [facility] Comment: Interpretive Data Percent cell count reference ranges are not reported, since discordance with absolute values may lead to misinterpretation of CBC data. Current Interpretive Data was last revised on 2017. Eosinophil pct 1.5 % [facility] Comment: Interpretive Data Percent cell count reference ranges are not reported, since discordance with absolute values may lead to misinterpretation of CBC data. Current Interpretive Data was last revised on 2017. Basophil pct 0.2 % [facility] Comment: Interpretive Data Percent cell count reference ranges are not reported, since discordance with absolute values may lead to misinterpretation of CBC data. Current Interpretive Data was last revised on 2017. Blood 01/15/2025 3:18 PM CDT 01/15/2025 3:21 PM CDT us Ashlee FRANCE LAB BLOOD ORDERABLES Final Result [facility] [address] [place] [address] * (ABNORMAL) CBC with auto differential (01/15/2025 3:18 PM CDT) [facility] WBC 4.76 3.80 - 9.90 K/cumm Hgb 9.5(L) 11.9 - 15.5 g/dL [facility] Hct 30.9(L) 35.6 - 45.5 % [facility] Plt 372 150 - 400 K/cumm [facility] MPV 10.4 9.1 - 12.3 fL [facility] RBC 3.40(L) 3.90 - 5.20 M/cumm [facility] MCV 90.9 81.3 - 96.4 fL [facility] MCH 27.9 27.1 - 33.3 pg [facility] MCHC 30.7(L) 32.3 - 35.7 g/dL [facility] RDW CV 15.5(H) 11.1 - 14.9 % [facility] RDW SD 50.7(H) 35.7 - 48.1 fL [facility] NRBC abs 0.00 0.00 - 0.01 K/cumm [facility] Blood Venous blood specimen / Unknown 01/15/2025 3:18 PM CDT 01/15/2025 3:21 PM CDT us Odilon Correa MD PhD LAB BLOOD ORDERABLE S Final Result [facility] [address] [facility] [place] [address] * (ABNORMAL) Comprehensive metabolic panel (01/15/2025 3:18 PM CDT) [facility] Sodium 139 135 - 145 mmol/L Potassium, pl 4.8 3.3 - 4.9 mmol/L [facility] Chloride 98 97 - 110 mmol/L [facility] CO2 23 22 - 32 mmol/L [facility] Anion gap 18(H) 2 - 15 [...] BLOOD ORDERABLE S Final Result HERBER JIMENEZCH [address] [facility]. [place] [address] * (ABNORMAL) POCT glucose (01/12/2025 10:49 AM CDT) [facility] Glucose, POC 270(H) 70 - 199 mg/dL Comment: Interpretive Data Glucose is assumed to be non-fasting. Fasting Glucose reference ranges are: 0 - 150 years: 70 mg/dL - 99 mg/dL Current interpretive data was last revised on 2013. POC Device Number [id number] 4 CERNER BARBARAWCYDNEY Blood 01/12/2025 10:4 9 AM CDT 01/12/2025 10:49 AM CDT Parag Xie MD LAB POCT ORDERABLES - DEV ICE Final Result Performing Organization Address [facility] Phone Number [facility] [address] [facility] [employer] [place] [address] * (ABNORMAL) POCT glucose (01/12/2025 8:11 AM CDT) Glucose, POC 343(H) 70 - 199 mg/dL Comment: Interpretive Data Glucose is assumed to be non-fasting. Fasting Glucose reference ranges are: 0 - 150 years: 70 mg/dL - 99 mg/dL Current interpretive data was last revised on 2013. POC Device Number [id number] 1 HERBER MARCANO Blood 01/12/2025 8:11 AM CDT 01/12/2025 8:11 AM CDT Parag Xie MD LAB POCT ORDERABLES - DEV ICE Final Result Performing Organization Address [facility] de Phone Number [facility] [address] [facility] [employer] [place] [address] * POCT glucose (01/11/2025 11:44 PM CDT) Glucose, POC 129 70 - 199 mg/dL Comment: Interpretive Data Glucose is assumed to be non-fasting. Fasting Glucose reference ranges are: 0 - 150 years: 70 mg/dL - 99 mg/dL Current interpretive data was last revised on 2013. POC Device Number [id number] 1 HERBER MARCANO Blood 01/11/2025 11:4 4 PM CDT 01/11/2025 11:44 PM CDT Parag Xie MD LAB POCT ORDERABLES - DEV ICE Final Result Performing Organization Address [facility] de Phone Number [facility] JIMENEZCH [address] [facility] [place], [place] [phone] * POCT glucose (01/11/2025 10:23 PM CDT) Glucose, POC 170 70 - 199 mg/dL Comment: Interpretive Data Glucose is assumed to be non-fasting. Fasting Glucose reference ranges are: 0 - 150 years: 70 mg/dL - 99 mg/dL Current interpretive data was last revised on 2013. POC Device Number [id number] 1 CERLULY MARCANO Blood 01/11/2025 10:2 3 PM CDT 01/11/2025 10:23 PM CDT us Parag Xie MD LAB POCT ORDERABLES - DEV ICE Final Result Performing Organization Address [facility] Phone Number [facility] [address] [facility]. [facility] [employer] [place] [address] * (ABNORMAL) POCT glucose (01/11/2025 8:33 PM CDT) Glucose, POC 225(H) 70 - 199 mg/dL Comment: Interpretive Data Glucose is assumed to be non-fasting. Fasting Glucose reference ranges are: 0 - 150 years: 70 mg/dL - 99 mg/dL Current interpretive data was last revised on 2013. POC Device Number [id number] 4 CERLULY JIMENEZWCYDNEY Blood 01/11/2025 8:33 PM CDT 01/11/2025 8:33 PM CDT Parag Xie MD LAB POCT ORDERABLES - DEV ICE Final Result Performing Organization Address [facility] de Phone Number [facility] [address] [facility]. [facility] [employer] [place] [address] * (ABNORMAL) POCT glucose (01/11/2025 7:01 PM CDT) Glucose, POC 203(H) 70 - 199 mg/dL Comment: Interpretive Data Glucose is assumed to be non-fasting. Fasting Glucose reference ranges are: 0 - 150 years: 70 mg/dL - 99 mg/dL Current interpretive data was last revised on 2013. POC Device Number [id number] 4 HERBER MARCANO Blood 01/11/2025 7:01 PM CDT 01/11/2025 7:01 PM CDT Parag Xie MD LAB POCT ORDERABLES - DEV ICE Final Result Performing Organization Address [facility] de Phone Number [facility] [address] [facility] [employer] [employer] [place], [place] [id number] * POCT glucose (01/11/2025 5:03 PM CDT) Glucose, POC 142 70 - 199 mg/dL Comment: Interpretive Data Glucose is assumed to be non-fasting. Fasting Glucose reference ranges are: 0 - 150 years: 70 mg/dL - 99 mg/dL Current interpretive data was last revised on 2013. POC Device Number [id number] 4 HERBER MARCANO Blood 01/11/2025 5:03 PM CDT 01/11/2025 5:03 PM CDT Parag Xie MD LAB POCT ORDERABLES - DEV ICE Final Result Performing Organization Address [facility] Co de Phone Number [facility] [address] [facility] [employer] [place] [address] * POCT glucose (01/11/2025 12:02 PM CDT) Glucose, POC 87 70 - 199 mg/dL Comment: Interpretive Data Glucose is assumed to be non-fasting. Fasting Glucose reference ranges are: 0 - 150 years: 70 mg/dL - 99 mg/dL Current interpretive data was last revised on 2013. POC Device Number [id number] 9 CERLULY JIMENEZWCH Blood 01/11/2025 12:0 2 PM CDT 01/11/2025 12:02 PM CDT Parag Xie MD LAB POCT ORDERABLES - DEV ICE Final Result Performing Organization Address [facility] de Phone Number [facility] [phone] [facility] [employer] [place], [place] [id number] * POCT glucose (01/11/2025 9:14 AM CDT) Glucose, POC 194 70 - 199 mg/dL Comment: Interpretive Data Glucose is assumed to be non-fasting. Fasting Glucose reference ranges are: 0 - 150 years: 70 mg/dL - 99 mg/dL Current interpretive data was last revised on 2013. POC Device Number [id number] 9 HERBER REINA Blood 01/11/2025 9:14 AM CDT 01/11/2025 9:14 AM CDT Parag Xie MD LAB POCT ORDERABLES - DEV ICE Final Result Performing Organization Address [facility] Phone Number HERBER JIMENEZCH [phone] [facility] [employer] [place] [address] * (ABNORMAL) eGFR (01/11/2025 8:27 AM CDT) [...] ORDERABLES Final Re sult Performing Organization Address [facility] Co de Phone Number [facility] [address] [facility]. [facility] [employer] [place] [address] * (ABNORMAL) Phosphorus (01/11/2025 8:27 AM CDT) Phosphorus, pl 6.9(H) 2.3 - 4.5 mg/dL Blood 01/11/2025 8:27 AM CDT 01/11/2025 8:35 AM CDT Narrative [facility] - 01/11/2025 8:53 AM CDT Please draw with dialysis Lisbet Franz MD LAB BLOOD ORDERABLES Final Re sult Performing Organization Address [facility] de Phone Number [facility] [address] [employer] [facility]. [facility] [employer] [place], [place] [id number] * Magnesium (01/11/2025 8:27 AM CDT) Magnesium [...] ORDERABLES Final Re sult Performing Organization Address [facility]/ZIP Co de Phone Number HERBER MARCANO [phone] [employer] Department of [employer] [place] [address] * (ABNORMAL) Basic metabolic panel (01/11/2025 8:27 AM CDT) Sodium 139 135 - 145 mmol/L Potassium, pl 4.1 3.3 - 4.9 mmol/L CERNER BJW Chloride 103 97 - 110 mmol/L CERNER [facility] CO2 23 22 - 32 mmol/L CERNER [facility] Anion gap 13 2 - 15 mmol/L [facility] BUN 45(H) 6 - 25 mg/dL CERNER [facility] Creatinine 6.97(H) 0.60 - 1.10 mg/dL [facility] Glucose 237(H) 70 - 199 mg/dL [facility] Comment: Interpretive Data Fasting glucose >/= 126 [...] 2022. Calcium 7.1(L) 8.5 - 10.3 mg/dL [facility] Blood 01/11/2025 8:27 AM CDT 01/11/2025 8:35 AM CDT N[facility]ative [facility] - 01/11/2025 8:53 AM CDT Please draw with dialysis Lisbet Franz MD LAB BLOOD ORDERABLES Final Re sult Performing Organization Address [facility]/ZIP Co de Phone Number HERBER REINACH [address] [employer] Department of [employer] [place], [place] [phone] * (ABNORMAL) POCT glucose (01/11/2025 7:52 AM CDT) Glucose, POC 249(H) 70 - 199 mg/dL Comment: Interpretive Data Glucose is assumed to be non-fasting. Fasting Glucose reference ranges are: 0 - 150 years: 70 mg/dL - 99 mg/dL Current interpretive data was last revised on 2013. POC Device Number [id number] 9 HERBER MARCANO Blood 01/11/2025 7:52 AM CDT 01/11/2025 7:52 AM CDT Parag Xie MD LAB POCT ORDERABLES - DEV ICE Final Result Performing Organization Address [facility] de Phone Number HERBER JIMENEZCH [phone] [place] [employer] [facility] [place] [address] * (ABNORMAL) POCT glucose (01/11/2025 4:35 AM CDT) Glucose, POC 267(H) 70 - 199 mg/dL Comment: Interpretive Data Glucose is assumed to be non-fasting. Fasting Glucose reference ranges are: 0 - 150 years: 70 mg/dL - 99 mg/dL Current interpretive data was last revised on 2013. POC Device Number [id number] HERBER MARCANO Glucose comment 1 RN/MD Notified HERBER MARCANO Blood 01/11/2025 4:35 AM CDT 01/11/2025 4:35 AM CDT Parag Xie MD LAB POCT ORDERABLES - DEV ICE Final Result Performing Organization Address [facility] de Phone Number HERBER JIMENEZCH [phone] [employer] [facility] [employer] [place] [address] * (ABNORMAL) POCT glucose (01/10/2025 11:36 PM CDT) Glucose, POC 220(H) 70 - 199 mg/dL Comment: Interpretive Data Glucose is assumed to be non-fasting. Fasting Glucose reference ranges are: 0 - 150 years: 70 mg/dL - 99 mg/dL Current interpretive data was last revised on 2013. POC Device Number [id number] HERBER MARCANO Glucose comment 1 RN/MD Notified HERBER MARCANO Blood 01/10/2025 11:3 6 PM CDT 01/10/2025 11:36 PM CDT Parag Xie MD LAB POCT ORDERABLES - DEV ICE Final Result Performing Organization Address [facility] de Phone Number HERBER JIMENEZWCH [address] [facility] [employer] [place] [address] * POCT glucose (01/10/2025 9:11 PM CDT) Glucose, POC 142 70 - 199 mg/dL Comment: Interpretive Data Glucose is assumed to be non-fasting. Fasting Glucose reference ranges are: 0 - 150 years: 70 mg/dL - 99 mg/dL Current interpretive data was last revised on 2013. POC Device Number [id number] 9 HERBER MARCANO Blood 01/10/2025 9:11 PM CDT 01/10/2025 9:11 PM CDT Parag Xie MD LAB POCT ORDERABLES - DEV ICE Final Result Performing Organization Address [facility] de Phone Number [facility] [address] [facility] [employer] [place] [address] * POCT glucose (01/10/2025 7:44 PM CDT) Glucose, POC 159 70 - 199 mg/dL Comment: Interpretive Data Glucose is assumed to be non-fasting. Fasting Glucose reference ranges are: 0 - 150 years: 70 mg/dL - 99 mg/dL Current interpretive data was last revised on 2013. POC Device Number [id number] 9 BERLINNER BARBARAWCH Blood 01/10/2025 7:44 PM CDT 01/10/2025 7:44 PM CDT Parag Xie MD LAB POCT ORDERABLES - DEV ICE Final Result Performing Organization Address [facility] de Phone Number HERBER REINACH [phone] [facility]. [facility] [employer] [place] [address] * (ABNORMAL) POCT glucose (01/10/2025 5:29 PM CDT) Glucose, POC 230(H) 70 - 199 mg/dL Comment: Interpretive Data Glucose is assumed to be non-fasting. Fasting Glucose reference ranges are: 0 - 150 years: 70 mg/dL - 99 mg/dL Current interpretive data was last revised on 2013. POC Device Number [id number] 9 HERBER MARCANO Blood 01/10/2025 5:29 PM CDT 01/10/2025 5:29 PM CDT Parag Xie MD LAB POCT ORDERABLES - DEV ICE Final Result Performing Organization Address [facility] de Phone Number HERBER JIMENEZWCH [phone] [place] [facility]. [facility] [employer] [place] [address] * (ABNORMAL) POCT glucose (01/10/2025 1:56 PM CDT) Glucose, POC 233(H) 70 - 199 mg/dL Comment: Interpretive Data Glucose is assumed to be non-fasting. Fasting Glucose reference ranges are: 0 - 150 years: 70 mg/dL - 99 mg/dL Current interpretive data was last revised on 2013. POC Device Number [id number] 9 HERBER JIMEENZWCH Blood 01/10/2025 1:56 PM CDT 01/10/2025 1:56 PM CDT Parag Xie MD LAB POCT ORDERABLES - DEV ICE Final Result Performing Organization Address [facility] de Phone Number HERBER JIMENEZWCH [phone] [facility]. [facility] [employer] [place] [address] * (ABNORMAL) POCT glucose (01/10/2025 12:01 PM CDT) Glucose, POC 331(H) 70 - 199 mg/dL Comment: Interpretive Data Glucose is assumed to be non-fasting. Fasting Glucose reference ranges are: 0 - 150 years: 70 mg/dL - 99 mg/dL Current interpretive data was last revised on 2013. POC Device Number [id number] 4 HERBER MARCANO Blood 01/10/2025 12:0 1 PM CDT 01/10/2025 12:01 PM CDT Parag Xie MD LAB POCT ORDERABLES - DEV ICE Final Result Performing Organization Address [facility] de Phone Number [facility] [address] [employer] [facility] [employer] [place] [address] * (ABNORMAL) POCT glucose (01/10/2025 10:22 AM CDT) Glucose, POC 335(H) 70 - 199 mg/dL Comment: Interpretive Data Glucose is assumed to be non-fasting. Fasting Glucose reference ranges are: 0 - 150 years: 70 mg/dL - 99 mg/dL Current interpretive data was last revised on 2013. POC Device Number [id number] [facility] Glucose comment 1 RN/MD Notified HERBER MARCANO Blood 01/10/2025 10:2 2 AM CDT 01/10/2025 10:22 AM CDT Parag Xie MD LAB POCT ORDERABLES - DEV ICE Final Result Performing Organization Address [facility] Co de Phone Number HERBER JIMENEZCH [phone] [place] [facility] [employer] [place] [address] * POCT glucose (01/10/2025 7:57 AM CDT) Glucose, POC 185 70 - 199 mg/dL Comment: Interpretive Data Glucose is assumed to be non-fasting. Fasting Glucose reference ranges are: 0 - 150 years: 70 mg/dL - 99 mg/dL Current interpretive data was last revised on 2013. POC Device Number [id number] 4 HERBER MARCANO Blood 01/10/2025 7:57 AM CDT 01/10/2025 7:57 AM CDT Parag Xie MD LAB POCT ORDERABLES - DEV ICE Final Result Performing Organization Address [facility] de Phone Number [facility] [address] [facility] [employer] [place] [address] * POCT glucose (01/10/2025 4:07 AM CDT) Pathologist [facility] Glucose, POC 114 70 - 199 mg/dL Comment: Interpretive Data Glucose is assumed to be non-fasting. Fasting Glucose reference ranges are: 0 - 150 years: 70 mg/dL - 99 mg/dL Current interpretive data was last revised on 2013. POC Device Number [id number] 4 HERBER MARCANO Blood 01/10/2025 4:07 AM CDT 01/10/2025 4:07 AM CDT Parag Xie MD LAB POCT ORDERABLES - DEV ICE Final Result Performing Organization Address [facility] de Phone Number [facility] [address] [facility] [employer] [place] [address] * (ABNORMAL) eGFR (01/10/2025 4:02 AM CDT) [...] BLOOD ORDERABLES Marli lipscomb Result HERBER REINA [id number] [facility]. [place] [address] * (ABNORMAL) CBC without differential (01/10/2025 4:02 AM CDT) WBC 4.58 3.80 - 9.90 K/cumm Hgb 9.0(L) 11.9 - 15.5 g/dL [facility] Hct 28.2(L) 35.6 - 45.5 % C[facility]ER [facility] Plt 274 150 - 400 K/cumm [facility] MPV 10.6 9.1 - 12.3 fL [facility] RBC 3.18(L) 3.90 - 5.20 M/cumm [facility]ER [facility] MCV 88.7 81.3 - 96.4 fL CERNER [facility] MCH 28.3 27.1 - 33.3 pg CERNER [facility] MCHC 31.9(L) 32.3 - 35.7 g/dL CERNER [facility] RDW CV 15.2(H) 11.1 - 14.9 % CERNER [facility] RDW SD 48.3(H) 35.7 - 48.1 fL [facility] NRBC abs 0.00 0.00 - 0.01 K/cumm CERNER [facility] Blood 01/10/2025 4:02 AM CDT 01/10/2025 4:20 AM CDT Parag Xie MD LAB BLOOD ORDERABLES Marli l Result Performing Organization Address City/[facility]/ZIP Co de Phone Number HERBER MARCANO [phone] [place] [address] * (ABNORMAL) Basic metabolic panel (01/10/2025 4:02 AM CDT) [facility] Sodium 136 135 - 145 mmol/L Potassium, pl 3.5 3.3 - 4.9 mmol/L [facility] Chloride 98 97 - 110 mmol/L C[facility]ER [facility] CO2 24 22 - 32 mmol/L C[facility]ER [facility] Anion gap 14 2 - 15 mmol/L CERNER [facility] BUN 22 6 - 25 mg/dL [facility] Creatinine 5.00(H) 0.60 - 1.10 mg/dL [facility] Glucose 109 70 - 199 mg/dL [facility] Comment: Interpretive Data Fasting glucose >/= 126 [...] 2022. Calcium 7.7(L) 8.5 - 10.3 mg/dL [facility] Blood 01/10/2025 4:02 AM CDT 01/10/2025 4:20 AM CDT Parag Xie MD LAB BLOOD ORDERABLES Marli l Result Performing Organization Address [facility]/ZIP Co de Phone Number HERBER JIMENEZWCH [address] [place] [employer] [address] * POCT glucose (01/09/2025 11:05 PM CDT) Glucose, POC 159 70 - 199 mg/dL Comment: Interpretive Data Glucose is assumed to be non-fasting. Fasting Glucose reference ranges are: 0 - 150 years: 70 mg/dL - 99 mg/dL Current interpretive data was last revised on 2013. POC Device Number [id number] 1 HERBER MARCANO Blood 01/09/2025 11:0 5 PM CDT 01/09/2025 11:05 PM CDT Parag Xie MD LAB POCT ORDERABLES - DEV ICE Final Result Performing Organization Address [facility] de Phone Number [facility] [address] [facility] [employer] [place], [place] [id number] * (ABNORMAL) POCT glucose (01/09/2025 10:22 PM CDT) Glucose, POC 60(L) 70 - 199 mg/dL Comment: Interpretive Data Glucose is assumed to be non-fasting. Fasting Glucose reference ranges are: 0 - 150 years: 70 mg/dL - 99 mg/dL Current interpretive data was last revised on 2013. POC Device Number [id number] 1 HERBER MARCANO Blood 01/09/2025 10:2 2 PM CDT 01/09/2025 10:22 PM CDT Parag Xie MD LAB POCT ORDERABLES - DEV ICE Final Result Performing Organization Address [facility] de Phone Number [facility] [address] [facility] [employer] [place] [address] * POCT glucose (01/09/2025 8:46 PM CDT) Glucose, POC 80 70 - 199 mg/dL Comment: Interpretive Data Glucose is assumed to be non-fasting. Fasting Glucose reference ranges are: 0 - 150 years: 70 mg/dL - 99 mg/dL Current interpretive data was last revised on 2013. POC Device Number [id number] 1 HERBER MARCANO Blood 01/09/2025 8:46 PM CDT 01/09/2025 8:46 PM CDT Parag Xie MD LAB POCT ORDERABLES - DEV ICE Final Result Performing Organization Address [facility] de Phone Number [facility] [address] [facility]. [facility] [employer] [place] [address] * POCT glucose (01/09/2025 6:06 PM CDT) Glucose, POC 193 70 - 199 mg/dL Comment: Interpretive Data Glucose is assumed to be non-fasting. Fasting Glucose reference ranges are: 0 - 150 years: 70 mg/dL - 99 mg/dL Current interpretive data was last revised on 2013. POC Device Number [id number] 4 HERBER MARCANO Blood 01/09/2025 6:06 PM CDT 01/09/2025 6:06 PM CDT Parag Xie MD LAB POCT ORDERABLES - DEV ICE Final Result Performing Organization Address [facility] Phone Number [facility] [address] [facility] [employer] [place] [address] * (ABNORMAL) POCT glucose (01/09/2025 5:41 PM CDT) Glucose, POC 64(L) 70 - 199 mg/dL Comment: Interpretive Data Glucose is assumed to be non-fasting. Fasting Glucose reference ranges are: 0 - 150 years: 70 mg/dL - 99 mg/dL Current interpretive data was last revised on 2013. POC Device Number [id number] 4 HERBER MARCANO Blood 01/09/2025 5:41 PM CDT 01/09/2025 5:41 PM CDT Parag Xie MD LAB POCT ORDERABLES - DEV ICE Final Result Performing Organization Address [facility]/ZIP Co de Phone Number HERBER JIMENEZWCH [phone] [employer] [facility] [employer] [place] [address] * POCT glucose (01/09/2025 5:05 PM CDT) Glucose, POC 100 70 - 199 mg/dL Comment: Interpretive Data Glucose is assumed to be non-fasting. Fasting Glucose reference ranges are: 0 - 150 years: 70 mg/dL - 99 mg/dL Current interpretive data was last revised on 2013. POC Device Number [id number] 4 HERBER REINATailster Blood 01/09/2025 5:05 PM CDT 01/09/2025 5:05 PM CDT Parag Xie MD LAB POCT ORDERABLES - DEV ICE Final Result Performing Organization Address [facility] de Phone Number HERBER BJ[facility] [phone] [employer] [facility] [employer] [place] [address] * (ABNORMAL) POCT glucose (01/09/2025 2:05 PM CDT) Pathologist [facility] Glucose, POC 228(H) 70 - 199 mg/dL Comment: Interpretive Data Glucose is assumed to be non-fasting. Fasting Glucose reference ranges are: 0 - 150 years: 70 mg/dL - 99 mg/dL Current interpretive data was last revised on 2013. POC Device Number [id number] 4 HERBER MARCANO Blood 01/09/2025 2:05 PM CDT 01/09/2025 2:05 PM CDT Parag Xie MD LAB POCT ORDERABLES - DEV ICE Final Result Performing Organization Address [facility] Co de Phone Number [facility]BER B[facility] [address] [employer] [facility] [employer] [place] [address] * Hepatitis B Surface Antigen Blood (01/09/2025 1:16 PM CDT) [facility] HepBsAg Nonreactive Nonreactive Comment:Testing performed by : [facility], [facility], [place]., [address] Blood 01/09/2025 1:16 PM CDT 01/09/2025 2:13 PM CDT Russell Weller MD LAB MICROBIOLOGY - GENER AL ORDERABLES Final Result Performing Organization Address [facility] Co de Phone Number [facility] [address] [facility] [place] [address] * (ABNORMAL) POCT glucose (01/09/2025 12:44 PM CDT) Glucose, POC 298(H) 70 - 199 mg/dL Comment: Interpretive Data Glucose is assumed to be non-fasting. Fasting Glucose reference ranges are: 0 - 150 years: 70 mg/dL - 99 mg/dL Current interpretive data was last revised on 2013. POC Device Number [id number] 4 HERBER MARCANO Blood 01/09/2025 12:4 4 PM CDT 01/09/2025 12:44 PM CDT Parag Xie MD LAB POCT ORDERABLES - DEV ICE Final Result Performing Organization Address [facility] Co de Phone Number [facility] [address] [facility] [employer] [place] [address] * (ABNORMAL) POCT glucose (01/09/2025 12:00 PM CDT) Glucose, POC 342(H) 70 - 199 mg/dL Comment: Interpretive Data Glucose is assumed to be non-fasting. Fasting Glucose reference ranges are: 0 - 150 years: 70 mg/dL - 99 mg/dL Current interpretive data was last revised on 2013. POC Device Number [id number] 4 HERBER JIMENEZWCH Blood 01/09/2025 12:0 0 PM CDT 01/09/2025 12:00 PM CDT Parag Xie MD LAB POCT ORDERABLES - DEV ICE Final Result Performing Organization Address [facility] de Phone Number [facility] [address] [employer] [facility] [place] [address] * (ABNORMAL) POCT glucose (01/09/2025 10:55 AM CDT) [facility] Signature Glucose, POC 358(H) 70 - 199 mg/dL Comment: Interpretive Data Glucose is assumed to be non-fasting. Fasting Glucose reference ranges are: 0 - 150 years: 70 mg/dL - 99 mg/dL Current interpretive data was last revised on 2013. POC Device Number [id number] 4 HERBER BJWCH Blood 01/09/2025 10:5 5 AM CDT 01/09/2025 10:55 AM CDT Parag Xie MD LAB POCT ORDERABLES - DEV ICE Final Result Performing Organization Address [facility] Phone Number HERBER JIMENEZWCH [address] [facility] [employer] [place] [address] * IR Gastrojejunostomy Tube Placement (01/09/2025 10:32 AM CDT) Anatomical Region Laterality Modality Body N/A X-Ray Angiograph y 01/09/2025 4:17 PM CDT Impressions 01/09/2025 4:17 PM CDT Successful placement of a 18 [place] Arlene single lumen gastrojejunostomy catheter. PLAN: The [...] was obtained. Prior to beginning the procedure, [place] Protocol was performed to confirm the patient's [...] was obtained. Prior to beginning the procedure, [place] Protocol was performed to confirm the patient's [...] jejunum. IMPRESSION: Successful placement of a 18 [place] Arlene single lumen gastrojejunostomy catheter. PLAN: The catheter is ready for feeding immediately through the jejunal port. Please flush the catheter with 20 cc of water after every feed and once each shift. Never attempt to administer crushed pills through the jejunal lumen. Electronically signed by: Jamie Bell M.D. Yessenia RAMIREZ IR PROCEDURES Final Res ult * [place] [...] last revised on 2013. POC Device Number [id number] [facility] Blood 01/09/2025 9:02 AM CDT 01/09/2025 9:02 AM CDT Parag Xie MD LAB POCT ORDERABLES - DEV ICE Final Result [facility] [address] [facility]. [employer] [place] [address] * POCT hCG, urine (01/09/2025 [...] last revised on 2013. POC Device Number [id number] HERBER MARCANO Blood 01/09/2025 7:09 AM CDT 01/09/2025 7:09 AM CDT Parag Xie MD LAB POCT ORDERABLES - DEV ICE Final Result Performing Organization Address [facility] Co de Phone Number [facility] [address] [place] [address] * POCT glucose (01/09/2025 4:11 AM CDT) Glucose, POC 130 70 - 199 mg/dL Comment: Interpretive Data Glucose is assumed to be non-fasting. Fasting Glucose reference ranges are: 0 - 150 years: 70 mg/dL - 99 mg/dL Current interpretive data was last revised on 2013. POC Device Number [id number] 4 HERBER MARCANO Blood 01/09/2025 4:11 AM CDT 01/09/2025 4:11 AM CDT Yessenia Dominguez MD LAB POCT ORDERABLES - DEVIC E Final Result Performing Organization Address [facility]/ZIP Co de Phone Number [facility] [address] [employer] [place], [place] [id number] * Beta-hydroxybutyrate (01/09/2025 12:50 AM CDT) Beta-Hydroxybut yrate <0.5 0.0 - 0.5 mmol/L Blood 01/09/2025 12:5 0 AM CDT 01/09/2025 12:57 AM CDT Yessenia Dominguez MD LAB BLOOD ORDERABLES Edited Result - Final Performing Organization Address [facility] Co de Phone Number HERBER JIMENEZWCH [address] [facility]. [facility] [employer] [place], [place] [id number] * (ABNORMAL) eGFR (01/09/2025 12:49 AM CDT) [...] BLOOD ORDERABLES Final Result Performing Organization Address [facility]/ZIP Co de Phone Number HERBER BJWCH [address] [facility] [employer] [place], [place] [id number] * Blood gas, venous (01/09/2025 12:49 AM CDT) pH, Venous 7.34 7.32 - 7.43 PCO2, Venous 42 40 - 50 mmHg [facility] PO2, Venous 60 mmHg [facility] Comment: Interpretive Data No reference range established. Current interpretive data was last revised 2019. HCO3 Venous, Calculated 23 20 - 30 mmol/L [facility] BE, venous -3 mmol/L [facility] Comment: Interpretive Data No Reference Range Established Current Interpretive Data was last revised on 2017. Blood 01/09/2025 12:4 9 AM CDT 01/09/2025 12:57 AM CDT us Yessenia Dominguez MD LAB BLOOD ORDERABLES Final Result [facility] [address] [facility]. [place] [address] * (ABNORMAL) Basic metabolic panel (01/09/2025 12:49 AM CDT) Pathologist [facility] Sodium 138 135 - 145 mmol/L Potassium, pl 4.4 3.3 - 4.9 mmol/L [facility] Chloride 101 97 - 110 mmol/L [facility] CO2 22 22 - 32 mmol/L [facility] Anion gap 15 2 - 15 mmol/L [facility] BUN 55(H) 6 - 25 mg/dL [facility] Creatinine 9.20(H) 0.60 - 1.10 mg/dL [facility] Glucose 292(H) 70 - 199 mg/dL [facility] Comment: Interpretive Data Fasting glucose >/= 126 [...] BLOOD ORDERABLES Final Result Performing Organization Address [facility] Phone Number [facility] [address] [facility] [employer] [place] [address] * (ABNORMAL) POCT glucose (01/09/2025 12:16 AM CDT) Glucose, POC 322(H) 70 - 199 mg/dL Comment: Interpretive Data Glucose is assumed to be non-fasting. Fasting Glucose reference ranges are: 0 - 150 years: 70 mg/dL - 99 mg/dL Current interpretive data was last revised on 2013. POC Device Number [id number] HERBER MARCANO Blood 01/09/2025 12:1 6 AM CDT 01/09/2025 12:16 AM CDT Yessenia Dominguez MD LAB POCT ORDERABLES - DEVIC E Final Result Performing Organization Address [facility] Phone Number [facility] [address] [place] [address] * (ABNORMAL) POCT glucose (01/08/2025 10:21 PM CDT) Glucose, POC 399(H) 70 - 199 mg/dL Comment: Interpretive Data Glucose is assumed to be non-fasting. Fasting Glucose reference ranges are: 0 - 150 years: 70 mg/dL - 99 mg/dL Current interpretive data was last revised on 2013. POC Device Number [id number] HERBER MARCANO Blood 01/08/2025 10:2 1 PM CDT 01/08/2025 10:21 PM CDT Yessenia Dominguez MD LAB POCT ORDERABLES - DEVIC E Final Result [facility] BJWCH [address] [facility]. [place] [address] * XR Chest 1 View [...] MD LAB BLOOD ORDERABLES F inal Result [facility] [address] [facility]. [place] [address] * Differential, auto (01/08/2025 8:57 PM CDT) Pathologist [facility] Neutrophil abs 3.57 1.50 - 6.50 K/cumm [...] 2017. Imm gran pct 0.3 % [facility] Comment: Interpretive Data Percent cell count [...] ORDERABLES F inal Result Performing Organization Address City/[facility]/ZIP Co de Phone Number [facility] BJWCH [address] [place] [address] * Beta-hydroxybutyrate (01/08/2025 8:57 PM CDT) Beta-Hydroxybut yrate <0.5 0.0 - 0.5 mmol/L Blood 01/08/2025 8:57 PM CDT 01/08/2025 9:02 PM CDT Yessenia Dominguez MD LAB BLOOD ORDERABLES Final Result Performing Organization Address City/[facility]/ZIP Co de Phone Number [facility] BJWCH [address] [employer] Department of Laboratories [place] [phone] * (ABNORMAL) CBC with auto differential (01/08/2025 8:57 PM CDT) Pathologist [facility] WBC 6.16 3.80 - 9.90 K/cumm Hgb 9.2(L) 11.9 - 15.5 g/dL [facility] Hct 29.0(L) 35.6 - 45.5 % [facility] Plt 320 150 - 400 K/cumm [facility] MPV 10.6 9.1 - 12.3 fL [facility] RBC 3.25(L) 3.90 - 5.20 M/cumm [facility] MCV 89.2 81.3 - 96.4 fL [facility] MCH 28.3 27.1 - 33.3 pg [facility] MCHC 31.7(L) 32.3 - 35.7 g/dL [facility] RDW CV 14.9 11.1 - 14.9 % [facility] RDW SD 48.1 35.7 - 48.1 fL [facility] NRBC abs 0.00 0.00 - 0.01 K/cumm [facility] Blood 01/08/2025 8:57 PM CDT 01/08/2025 9:02 PM CDT us Yareli Mitchell MD LAB BLOOD ORDERABLES F inal Result [facility] [address] [facility]. [place] [address] * Protime-INR (01/08/2025 8:57 PM CDT) Pathologist [facility] PT 11.7 10.2 - 13.5 sec INR 1.04 0.90 - 1.20 [facility] Comment: Interpretive data Oral anticoagulant therapeutic ranges: Venous thromboembolism prophylaxis or treatment: 2.0-3.0 CARDIOLOGY Standard range: 2.0-3.0 High-intensity range: 2.5-3.5 Refer to indication-specific guidelines for appropriate target ranges for prosthetic heart valve replacement. Current interpretive data was last revised on 2019. Blood 01/08/2025 8:57 PM CDT 01/08/2025 9:02 PM CDT us Yareli Mitchell MD LAB BLOOD ORDERABLES F inal Result [facility] [address] [facility] [place] [address] * (ABNORMAL) Renal function panel (01/08/2025 8:57 [...] ORDERABLES F inal Result Performing Organization Address [facility] Co de Phone Number HER[facility] JIMENEZCH [address] [employer] [facility] [employer] [place] [address] * (ABNORMAL) POCT glucose (01/08/2025 7:44 PM CDT) Glucose, POC 320(H) 70 - 199 mg/dL Comment: Interpretive Data Glucose is assumed to be non-fasting. Fasting Glucose reference ranges are: 0 - 150 years: 70 mg/dL - 99 mg/dL Current interpretive data was last revised on 2013. POC Device Number [id number] CERNER [employer] Blood 01/08/2025 7:44 PM CDT 01/08/2025 7:44 PM CDT us Yessenia Dominguez MD LAB POCT ORDERABLES - DEVIC E Final Result Performing Organization Address [facility] de Phone Number [facility] [address] [employer] [facility] [employer] [place] [address] * (ABNORMAL) POCT glucose (01/08/2025 6:43 PM CDT) Glucose, POC 320(H) 70 - 199 mg/dL Comment: Interpretive Data Glucose is assumed to be non-fasting. Fasting Glucose reference ranges are: 0 - 150 years: 70 mg/dL - 99 mg/dL Current interpretive data was last revised on 2013. POC Device Number [id number] CERN[employer] Blood 01/08/2025 6:43 PM CDT 01/08/2025 6:43 PM CDT Viraj Olivo MD LAB POCT ORDERABLES - DEVICE Fin al Result Performing Organization Address [facility] Co de Phone Number [facility]systemsHUTCHINGS [facility] [address] [facility]. Department of [employer] [place] [address] * XR Foot Right 3 or More [...] severe secondary right ankle osteoarthritis. Small effusion. Ezlc-ly-jxqwoqgc pes planus with old healed midfoot fractures, polyarticular midfoot osteoarthritis and fragmentation. Soft tissue swelling is present. Arterial atherosclerosis is noted. Mild 1st metatarsophalangeal joint osteoarthritis. IMPRESSION: 1. Old healed distal right tibia and fibular fractures with hindfoot valgus and moderate to severe secondary right ankle osteoarthritis. 2. Zqay-qj-ztmaymni right pes planus with old healed midfoot fractures, polyarticular midfoot osteoarthritis and fragmentation. THIS IS AN ELECTRONICALLY VERIFIED FINAL REPORT 01/09/2025 4:28 PM - Electronically signed by Andrei Nguyen M.D. MF T: Report ID: [id number] Reading Location: [id number] Procedure Note Andrei Nguyen MD - 01/09/2025 [...] severe secondary right ankle osteoarthritis. Small effusion. Xrwq-ml-lhmykfus pes planus with oldhealed midfoot fractures, polyarticular midfoot osteoarthritis and fragmentation. Soft tissue swelling is present. Arterial atherosclerosis is noted. Hluh7ou metatarsophalangeal joint osteoarthritis. IMPRESSION: 1. Old healed distal right tibia and fibular fractures with hindfootvalgus and moderate to severe secondary right ankle osteoarthritis. 2. Htsk-tp-zrdxwupb right pes planus with old healed midfoot fractures, polyarticular midfoot osteoarthritis and fragmentation. THIS IS AN ELECTRONICALLY VERIFIED FINAL REPORT 01/09/2025 4:28 PM - Electronically signed by Andrei Nguyen M.D. T: Report ID: [id number] Reading Location: [id number] Raul Clark DO IMG XR PROCEDURES Final [...] severe secondary right ankle osteoarthritis. Small effusion. Hopt-ne-mbddyvoi pes planus with old healed midfoot fractures, polyarticular midfoot osteoarthritis and fragmentation. Soft tissue swelling is present. Arterial atherosclerosis is noted. Mild 1st metatarsophalangeal joint osteoarthritis. IMPRESSION: 1. Old healed distal right tibia and fibular fractures with hindfoot valgus and moderate to severe secondary right ankle osteoarthritis. 2. Zhgi-xf-faxyvdhf right pes planus with old healed midfoot fractures, polyarticular midfoot osteoarthritis and fragmentation. THIS IS AN ELECTRONICALLY VERIFIED FINAL REPORT 01/09/2025 4:28 PM - Electronically signed by Andrei Nguyen M.D. T: Report ID: [id number] Reading Location: [id number] Procedure Note Andrei Nguyen MD - 01/09/2025 [...] severe secondary right ankle osteoarthritis. Small effusion. Mtav-de-avyopbue pes planus with oldhealed midfoot fractures, polyarticular midfoot osteoarthritis and fragmentation. Soft tissue swelling is present. Arterial atherosclerosis is noted. Bopf5eu metatarsophalangeal joint osteoarthritis. IMPRESSION: 1. Old healed distal right tibia and fibular fractures with hindfootvalgus and moderate to severe secondary right ankle osteoarthritis. 2. Zlnz-yi-juovdykx right pes planus with old healed midfoot fractures, polyarticular midfoot osteoarthritis and fragmentation. THIS IS AN ELECTRONICALLY VERIFIED FINAL REPORT 01/09/2025 4:28 PM - Electronically signed by Andrei Nguyen M.D. T: Report ID: [id number] Reading Location: [id number] Raul Clark DO IMG XR PROCEDURES Final Result * POCT glucose (12/26/2024 9:47 AM CDT) Glucose, POC 197 70 - 199 mg/dL Blood 12/26/2024 9:47 AM CDT 12/26/2024 9:47 AM CDT us Young Vasquez MD LAB POCT ORDERABLES - DEVICE Final Result [facility] [place] [address] * Colonoscopy (12/26/2024 9:16 AM CDT) Anatomical Region Laterality Modality Other Narrative Procedure Note Young Vasquez MD - 12/26/2024 9:16 AM CDT GI ENDOSCOPY [facility] Patient Name: Brissa Angela Procedure Date: 12/26/2024 9:16 AM Date of : 1995 Admit Type: Outpatient Age: 29 Gender: Female Attending MD: Young Vasquez M.D., Room: [facility] ENDOSCOPY ROOM 8 Note Status: [...] was passed under direct vision.The PCF [id number] endoscope was introduced through the anus and [...] Supervising provider: Dylan Frias MD Placed by: CDL TEAM TRUCK DRIVER: Federico Beltran CRNA Emergent airway documentation: Risks [...] Biopsy) 12/26/2024 9:25 AM CDT Narrative PATHOLOGY [facility] - 12/27/2024 6:13 PM CDT EPIC results best viewed via link to PDF [facility] [place] [address] Note to Patients: This report may contain [...] F : 1995 (Age: 29) Address: [address] [place] [id number] [facility] #: [id number] Taken:12/26/2024 Received:12/26/2024 Reported: 12/27/2024 Patient Type: [facility] Service: Gastro Location: Physician(s): Young Vasquez [...] Surgical Pathology and Flow Cytometry Departments at [facility] as part of an ongoing manager of quality program and in compliance with federally [...] Surgical Pathology and Flow Cytometry Departments of [facility]. It has not been cleared or approved by the U. S. Food and Drug Administration. IMAGES AND SCANNED DOCUMENTS, IF INCLUDED, ONLY VIEWABLE IN PDF VERSION OF REPORT us Young Vasquez MD LAB PATHOLOGY ORDERABL ES Final Result PATHOLOGY [facility] 3rd Floor [place], [place] [phone] * EGD (12/26/2024 8:55 AM CDT) Anatomical Region Laterality Modality Other Narrative Procedure Note Young Vasquez MD - 12/26/2024 8:55 AM CDT GI ENDOSCOPY [facility] Patient Name: Brissa Angela Procedure Date: 12/26/2024 8:55 AM Date of : 1995 Admit Type: Outpatient Age: 29 Gender: Female Attending MD: Young Vasquez M.D., Room: [facility] ENDOSCOPY ROOM 8 Note Status: [...] HCG, ur, POC Negative Negative Lot Number \[id number] QC Backgroud Clear Acceptable QC Control Line Acceptable Urine 12/26/2024 8:43 AM CDT Young Vasquez MD POINT OF CARE TEST ORD ERABLES Final Result * POCT glucose (12/26/2024 8:41 AM CDT) Glucose, POC 102 70 - 199 mg/dL Blood 12/26/2024 8:41 AM CDT 12/26/2024 8:41 AM CDT Young Vasquez MD LAB POCT ORDERABLES - DEVICE Final Result [facility] [place] [address] * (ABNORMAL) POCT glucose (12/26/2024 7:53 AM CDT) Glucose, POC 67(L) 70 - 199 mg/dL Blood 12/26/2024 7:53 AM CDT 12/26/2024 7:53 AM CDT Young Vasquez MD LAB POCT ORDERABLES - DEVICE Final Result Performing Organization Address City/[facility] Co de Phone Number [facility] [place] [address] * (ABNORMAL) eGFR (12/26/2024 7:03 AM CDT) [...] MD LAB BLOOD ORDERABLES F inal Result [facility] [place] [address] * (ABNORMAL) Comprehensive metabolic panel (12/26/2024 7:03 AM CDT) Sodium 129(L) 135 - 145 mmol/L Potassium, pl 4.8 3.3 - 4.9 mmol/L [facility] Comment:Hemolyzed; Potassium value may be falsely elevated by as much as 0.6-1.0 mmol/L. Suggest redraw and reanalysis. Chloride 94(L) 97 - 110 mmol/L [facility] CO2 25 22 - 32 mmol/L [facility] Anion gap 10 2 - 15 mmol/L [facility] BUN 18 6 - 25 mg/dL [facility] Creatinine 6.44(H) 0.60 - 1.10 mg/dL [facility] Glucose 110 70 - 199 mg/dL [facility] Comment: Interpretive Data Fasting glucose >/= [...] 2022. Calcium 8.2(L) 8.5 - 10.3 mg/dL [facility] Bilirubin, total 0.4 0.1 - 1.2 mg/dL [facility] Protein, pl 7.9 6.5 - 8.5 g/dL [facility] Albumin 3.7 3.5 - 5.0 g/dL [facility] Alk phos 181(H) 40 - 130 Units/L [facility] ALT 18 7 - 45 Units/L [facility] AST 31 10 - 45 Units/L [facility] Comment:Hemolyzed; result ma y be falsely elevated Blood 12/26/2024 7:03 AM CDT 12/26/2024 7:04 AM CDT Young Vasquez MD LAB BLOOD ORDERABLES F inal Result [facility] [place] [address] * CT Abdomen and Pelvis Enterography W [...] 12/22/2024 2:09 PM - Electronically signed by Mhain CORDOVA T: Report ID: [id number] Reading Location: [id number] Procedure Note Mahin Balderrama MD - 12/22/2024 [...] signed by Mahin CORDOVA T: Report ID: [id number] Reading Location: [place] [address] Raul Clark DO IMG CT PROCEDURES Final [...] signed by Mahin CORDOVA T: Report ID: [id number] Reading Location: [id number] Procedure Note Mahin Balderrama MD - 12/22/2024 [...] signed by Mahin CORDOVA T: Report ID: [id number] Reading Location: [place] [address] Raul Clark DO IMG CT PROCEDURES Final [...] by Andrei Nguyen M.D. T: Report ID: [id number] Reading Location: [id number] Procedure Note Andrei Nguyen MD - 12/10/2024 [...] by Andrei Nguyen M.D. T: Report ID: [id number] Reading Location: [id number] Raul Wiechert DO IMG XR PROCEDURES Final [...] by Andrei Nguyen M.D. T: Report ID: [id number] Reading Location: [id number] Procedure Note Andrei Nguyen MD - 12/10/2024 [...] by Andrei Nguyen M.D. T: Report ID: [id number] Reading Location: [place] [address] Raul Clark DO IMG XR PROCEDURES Final Result * (ABNORMAL) Hemoglobin A1c (10/30/2024 2:24 AM CDT) Pathologist [facility] Hgb A1C 8.8(H) 4.0 - 5.6 % [...] MD LAB BLOOD ORDERABLES Marli lipscomb Result [facility] [place] [address] * Lipid panel (10/29/2024 8:13 PM CDT) [...] revised on 2017. Triglycerides 92 <=149 mg/dL [facility] Comment: Interpretive Data Ages < or [...] revised on 2017. HDL 49 >=40 mg/dL [facility] Comment: Interpretive Data Ages < or [...] on 2017. LDL, calculated 58 <=129 mg/dL [facility] Comment: Interpretive Data Ages < or [...] revised on 2023. Non-HDL Cholesterol 75 mg/dL [facility] Comment: Interpretive Data Ages < or [...] last revised on 2017. Chol/HDL ratio 3 [facility] Blood 10/29/2024 8:13 PM CDT 10/29/2024 8:27 PM CDT Dennis Cadet MD LAB BLOOD ORDERABLES Marli lipscomb Result [facility] Department [place] [address] * TSH (01/09/2024 3:52 PM CDT) Thyroid Stimulating Hormone 2.46 0.30 - 4.20 mcIUnit/mL Blood 01/09/2024 3:52 PM CDT 01/09/2024 4:46 PM CDT Sailaja Ramos MD LAB BLOOD ORDERABLES Final Result 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 Source: [facility]. 08/20/2024 [employer] Comment:Added from external infection. Source: [facility]. Kleb pneumo [facility] 10/31/2024 10/31/2024 Insurance MEDICARE MEDICARE Advance Directives For more information, please contact: [phone] * Full Code (Latest Code Status on [...] 2:03 PM 06/28/2024 7:52 PM Care Teams Requisition Approver Relationship Specialty Start Date End Date Edgardo Aldridge MD [address] [facility] [address] [place] [address] PCP - General Family Medicine 04/02/23 Andrei Chaves MD PhD [address] [address] Referring Physician General Surgery 03/17/23 Olivia Phelps MD [address] [facility] [address] [place], [place] [address] Consulting Physician Nephrology 03/17/23 Odilon Tellez MD [address] [facility] [address] [place] [address] Referring Physician Nephrology 11/12/23 Ayaka Thomas MD [address] [facility] [address] [place] [address] Fellow Internal Medicine 12/17/23 Yumi Jones NP [address] [facility] [address] [place] [address] Nurse Practitioner Hospice and Palliative Medicine 08/16/23 Odilon Tellez MD [address] [facility] [address] [address] [place] [address] Consulting Physician Nephrology 12/05/24
--- OUTSIDE RECORDS SUMMARY | 2025-02-22 18:18 | XMS_ITS | Encounter Summary ---
Author Organization [facility] Facility Care Team Providers Care Contract Specialist Name Role Phone Unknown, Notinfile Primary Care Provider Unavail able Lay Villalta MD Primary Care Provider [phone] Tremayne Kebede MD Unavailable [phone] Georgia Mcbride PHLEBOTOMY SPECIALIST Unavailable [phone] Miscellaneous, Not In File Unavailable Unava ilable Eun Camacho Primary Care Provider + Cony Pemberton TRANSPORTATION MODELER Unavailable +[phone] Antonette Vernon RN Unavailable [phone] Andrei Chaves MD PhD Unavailable [phone] Olivia Phelps MD Unavailable [phone] Edgardo Aldridge MD Primary Care Provider [phone] Odilon Tellez MD Unavailable [phone] Miscellaneous, Not In File Unavailable Unava ilable Ct Boggs TRANSPORTATION MODELER Unavailable +[phone] Odilon Tellez MD Unavailable +[phone] Tracey Felix RN Unavailable [phone] Ayaka Thomas MD Unavailable [phone] Yumi Jones NP Unavailable [phone] TosinRuthy wilder TRANSPORTATION MODELER Unavailable Unavaila ble Feli Boggs RN Unavailable [phone] Mendel Bowling RN Unavailable [phone] Leslie Baptiste [facility] Unavailable Mendel Bowling RN Unavailable [phone] Odilon Tellez MD Unavailable [phone] Mavis Barahona RN Unavailable [phone] Mahnaz Garcia RN Unavailable [phone] Jaimie Glez RN Unavailable [phone] Encounter Details Date Type Department Care Team (Latest Contact Info) Description 06/10/2018 Orders Only [facility] CLINCONV Provider, MD [facility] [address] [place] [address] Social History Tobacco Use Types Packs/Day Years Used Date Smoking Tobacco: Never Comments Unknown Sex and Gender Information Value Date Recorded Sex Assigned at Not on file Legal Sex Female 9:16 AM IRISH MOSS OPERATOR Gender Identity Not on file Sexual Orientation Not on file documented as of this encounter Plan of Treatment Not on file documented as of this encounter Procedures Procedure Name Priority Date/Time Associated Diagnosis Comments SCAN - LABS 06/15/2018 12:00 AM IRISH MOSS OPERATOR documented in this encounter Results * SCAN - LABS (06/15/2018 12:00 AM IRISH MOSS OPERATOR) Narrative 06/15/2018 12:00 AM IRISH MOSS OPERATOR Ordered by an unspecified provider. Historical [...] CDT COVID19 02/02/2020 02/02/2020 02/19/2020 3:05 AM IRISH MOSS OPERATOR COVID: Recovered Comment:Added based on recent [...] COVID: Suspected 06/15/2023 06/15/2023 06/15/2023 5:53 PM IRISH MOSS OPERATOR C. difficile suspected 06/24/2023 06/24/202306/26 6:03 [...] CDT 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 Source: [facility]. 08/20/2024 Carbapenemase, Unspecified Comment:Added from external infection. Source: [facility]. Kleb pneumo KPC 09/23/2024 10/31/2024 3:07 PM C DT CP-CONSTRUCTION PROJECT MANAGER Comment:Added from external infection. Source: [facility]. Kleb pneumo KPC 10/31/2024 10/31/2024 documented as of this encounter Care Teams Contract Specialist Relationship Specialty Start Date End Date Unknown, Notinfile PCP - General 12/28/16 08/23/18 Lay Villalta MD PCP - General Family Medicine 08/24/18 07/17/21 Eun Camacho PA PCP - General Family Medicine 07/18/21 03/08/23 Edgardo Aldridge MD [address] [facility] [address] or 4 [place] [address] PCP - General Family Medicine 04/02/23 Tremayne Kebede MD Consulting Physician Gastroenterology 02/05/20 3 Georgia Mcbride LPN [address] [facility] [address] [facility] [address] [place] [address] ACO Care Project Management Professional 11/28/20 12/19/20 Miscellaneous, Not In File 07/17/21 03/16/23 Cony Pemberton LCSW [address] [facility] ([facility]) Mailstop [phone] [place] [address] SHOP Outpatient Plant Physiology Teacher 12/07/22 12/07/22 Antonette Vernon, KADY [address] [place] [address] SHOP Outpatient Plant Physiology Teacher 12/08/22 01/05/23 Andrei Chaves MD PhD [address] [facility] [address] [place] [address] Referring Physician General Surgery 03/17/23 Olivia Phelps MD [address] [employer] [address] [place], [place] [address] Consulting Physician Nephrology 03/17/23 Odilon Tellez MD [address] [employer] [address] [place], [place] [address] Consulting Physician Nephrology 05/01/23 12/04/24 Miscellaneous, Not In File 07/08/23 01/24/24 Ct Boggs, [facility] [address] [facility] ([facility]) Mailstop [phone] [place] [address] SHOP Outpatient Plant Physiology Teacher 07/09/23 08/05/23 Odilon Tellez MD [address] [employer] [address] [place], [place] [address] Referring Physician Nephrology 11/12/23 Tracey Felix, KADY [address] [place] [address] Home Mortgage Disclosure Act Specialist 11/12/23 11/17/23 Ayaka Thomas MD [address] [facility] [address] [place] [address] Fellow Internal Medicine 12/17/23 Yumi Jones NP [address] [facility] [address] [place] [address] Nurse Practitioner Hospice and Palliative Medicine 08/16/23 Ruthy Leahy LCSW Gleason Operator 12/31/23 02/22/24 Feli Boggs, RN [address] [place] [address] [address] [place] [address] Service Desk Manager 12/31/23 01/02/24 Mendel Bowling, KADY [address] [place] [address] [address] [place] [address] Service Desk Manager 01/03/24 03/23/24 Leslie Baptiste, [address] [place] [address] Pharmacist Pharmacy 01/13/24 02/03/24 Mendel Bowling, KADY [address] [place] [address] [address] [place] [address] Service Desk Manager 11/07/24 01/04/25 Odilon Tellez MD [address] [facility] [address] [place] [address] Consulting Physician Nephrology 12/05/24 Mavis Barahona, RN [address] [facility] [address] [place] [address] Home Mortgage Disclosure Act Specialist 12/20/24 01/08/25 Mahnaz Garcia, RN [address] [place] [address] [address] [place] [address] Service Desk Manager 01/15/25 01/15/25 Jaimie Glez RN [address] [place] [address] [address] [place] [address] Service Desk Manager 01/29/25 02/07/25 documented as of this encounter
--- OUTSIDE RECORDS SUMMARY | 2025-02-22 18:18 | XMS_ITS | Encounter Summary ---
Author Organization [facility] Address Formerly [facility] [place] [address] Care Team Providers Care Semiconductor Processor Name Role Phone Lay Cota MD Primary Care Provider [phone] Edgardo Aldridge MD Primary Care Provider [phone] Keely Ugalde [facility] Unavailable [phone] Keely Ugalde [facility] Unavailable [phone] Odilon Tellez MD Unavailable [phone] Leonardo Washburn MD Unavailable [phone] Young Vasquez MD Unavailable [phone] Andrei Chaves MD Unavailable [phone] Encounter Details Date Type Department Care Team (Late st Contact Info) Description 03/07/2024 Prep for Procedure [facility] Pre-Admission Testing [facility] [place] [address] Juan Long MD [address] [place] [address] Social History Tobacco Use Types Packs/Day Years Used Date Smoking Tobacco: Never Smokeless Tobacco: Never Alcohol Use Standard Drinks/Week Comments Not Currently 0 (1 standard drink = 0.6 oz pur e alcohol) occasionally [facility] Utilities Answer Date Recorded In the past 12 months has [facility] gas, oil, or water [employer] threatened to shut off services in your [...] How often do you attend chur or presybeterian services? Never 12/31/2022 Do you belong to any clubs o r organizations such as yazidi groups, unions, fraternal or athletic groups, or [...] Recorded Patient Health Questionnaire-2 Score 0 12/31/2022 [facility] - [...] 1:51 PM Dunia Wilson RN Active * [place] Suicide Severity Rating Scale (Screener/Recent Self-Report) Question [...] st Contact Info) Description 05/24/2025 10:20 AM HYPERION ESSBASE DEVELOPER Office Visit [facility] Multispecialty Care - [facility] [address] [place] [id number] Leonardo Washburn MD [address] [place] [address] documented as of this encounter Goals Goal Patient Goal Type Associated Problems Recent Progress Patient-Stated? Author HOME TO INDEPENDENT LIVING. General No Chiquis Alicia, RN Patient will return to prior living situation and remain independent in ADLs upon discharge from hospital Lifestyle No Jeri Lara LSW Health - patient able to perform ADLs independently Lifestyle No Latrice Marie, HYDRAULIC PLUMBER Health - patient able to perform ADLs independently Lifestyle No Latrice Marie, HYDRAULIC PLUMBER documented as of this encounter Visit Diagnoses Not on filedocumented in this encounter Additional Health Concerns Infection Onset Date Last Indicated Resolved Time MRSA Comment:04/27/23 +MRSA Urine 10/23/23 +MRSA from [facility]. Added from external infection. Source: [facility]. 02/09/24 +MRSA Nares from [facility]. 05/08/24 +MRSA Nares 10/23/2023 12/04/2024 COVID-19 Rule Out 03/12/2024 03/12/2024 03/12/2024 3:51 PM HYPERION ESSBASE DEVELOPER COVID-19 Rule Out 04/04/2024 04/04/2024 04/04/2024 5:10 PM HYPERION ESSBASE DEVELOPER COVID-19 Rule Out 04/24/2024 04/24/2024 04/24/2024 8:24 PM HYPERION ESSBASE DEVELOPER RSV 04/24/2024 04/24/2024 05/04/2024 12:3 2 AM HYPERION ESSBASE DEVELOPER COVID-19 Rule Out 05/08/2024 05/08/2024 05/08/2024 4:15 PM HYPERION ESSBASE DEVELOPER Tuberculosis Rule-Out 05/09/2024 05/09/20242024 10:09 AM HYPERION ESSBASE DEVELOPER COVID-19 Rule Out 05/17/2024 05/17/2024 05/17/2024 4:44 PM HYPERION ESSBASE DEVELOPER Respiratory Rule Out 07/05/2024 07/05/2024 025 10:03 [...] documented as of this encounter Care Teams Semiconductor Processor Relationship Specialty Start Date End Date Lay Cota MD PCP - General FAMILY PRACTICE 12/10/22 07/02/24 Edgardo Aldridge MD [address] [address] PCP - General FAMILY PRACTICE 07/03/24 Keely Ugalde, [facility] [place] [address] [place] [address] PCP - Hospice Attending 10/06/24 Keely Ugalde, [facility] [address] [place] [address] Nurse Practitioner PALLIATIVE CARE 10/09/24 Odilon Tellez MD [address] [address] Consulting Physician NEPHROLOGY 11/17/24 Leonardo Washburn MD [address] [address] [place] [address] Consulting Physician Internal Medicine Pulmonary Disease 11/17/24 Young Vasquez MD [address] [facility] 8 [place] [address] GASTROENTEROLOGY 11/17/24 Andrei Chaves MD [address] [place] [address] SURGERY 11/17/24 documented as of this encounter
--- OUTSIDE RECORDS SUMMARY | 2025-02-22 18:18 | XMS_ITS | Encounter Summary ---
Author Organization [facility] Address [address] [place] [address] Care Team Providers Care Weekend Anchor Name Role Phone Andrei Chaves MD PhD Unavailable [phone] Olivia Phelps MD Unavailable [phone] Edgardo Aldridge MD Primary Care Provider Odilon Tellez MD Unavailable [phone] Ayaka Thomas MD Unavailable [phone] Yumi Jones NP Unavailable [phone] Mendel Bowling RN Unavailable [phone] Odilon Tellez MD Unavailable [phone] Mavis Barahona RN Unavailable [phone] Mahnaz Garcia RN Unavailable [phone] Jaimie Glez RN Unavailable Encounter Details Date Type Department Care Team (Late st Contact Info) Description 12/29/2024 Results Follow-Up [facility] Family Medicine at [address] [place] [address] Edgardo Aldridge MD [address] [place] [address] [address] [place] [address] SCAN - RADIOLOGY/IMAGING Social History Tobacco Use Types Packs/Day Years Used Date Smoking Tobacco: Never Smokeless Tobacco: Never Alcohol Use Standard Drinks/Week Comments Not Currently 0 (1 standard drink = 0.6 oz pur e alcohol) [facility] Utilities Answer Date Recorded In the [...] often do you attend chur ch or adventism services? Never 11/07/2024 Do you belong to any clubs o r organizations such as anabaptism groups, unions, fraternal or athletic groups, or [...] Date Recorded PHQ-2 Total Score 0 11/01/2024 [facility] - Occupational [...] any time in the past 12 m [facility], were you homeless or living [...] on file Legal Sex Female 9:16 AM OIL GAUGER Gender Identity Not on file Sexual Orientation Not on file documented as of this encounter Plan of Treatment Not on file documented as of this encounter Visit Diagnoses Not on filedocumented in this encounter Additional Health Concerns Infection Onset Date Last Indicated 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 Source: [facility]. 08/20/2024 CP-CAR PINCHER Comment:Added from external infection. Source: [facility]. Kleb pneumo C 10/31/2024 10/31/2024 documented as of this encounter Care Teams Weekend Anchor Relationship Specialty Start Date End Date Edgardo Aldridge MD [address] [facility] [address] or [address] [place] [address] PCP - General Family Medicine 04/02/23 Andrei Chaves MD PhD [address] [facility] [address] [place] [address] Referring Physician General Surgery 03/17/23 Olivia Phelps MD [address] [facility] [address] [place] [address] Consulting Physician Nephrology 03/17/23 Odilon Tellez MD [address] [facility] [address] [place] [address] Referring Physician Nephrology 11/12/23 Ayaka Thomas MD [address] [facility] [address] [place] [address] Fellow Internal Medicine 12/17/23 Yumi Jones SUGAR COATING HAND [address] [facility] [address] [place] [address] Nurse Practitioner Hospice and Palliative Medicine 08/16/23 Mendel Bowling, KADY [address] [place] [address] [address] [place] [address] Horizontal Boring Mill Set Up Operator 11/07/24 01/04/25 Odilon Tellez MD [address] [facility] [address] [place] [address] Consulting Physician Nephrology 12/05/24 Mavis Barahona, RN [address] [facility] [address] [place] [address] Civil Engineering Specialist 12/20/24 Mahnaz Garcia RN [address] [place] [address] [address] [place] [address] Horizontal Boring Mill Set Up Operator 01/15/25 01/15/25 Jaimie Glez RN [address] [place] [address] [address] [place] [address] Horizontal Boring Mill Set Up Operator 01/29/25 02/07/25 documented as of this encounter
--- OUTSIDE RECORDS SUMMARY | 2025-02-22 18:18 | XMS_ITS | Encounter Summary ---
Author Organization [facility] Address [facility] [place] [address] Care Team Providers Care Men'S Designer Name Role Phone Lay Cota MD Primary Care Provider [phone] Edgardo Aldridge MD Primary Care Provider [phone] Keely Ugalde PROOF COINS INSPECTOR Unavailable [phone] Keely Ugalde PROOF COINS INSPECTOR Unavailable [phone] Odilon Tellez MD Unavailable [phone] Leonardo Washburn MD Unavailable [phone] Young Vasquez MD Unavailable [phone] Andrei Chaves MD Unavailable [phone] Encounter Details Date Type Department Care Team (Late st Contact Info) Description 03/07/2024 Prep for Procedure [facility] [place], [place] [id number] Juan Long MD [address] [place] [id number] Social History Tobacco Use Types Packs/Day Years Used Date Smoking Tobacco: Never Smokeless Tobacco: Never Alcohol Use Standard Drinks/Week Comments Not Currently 0 (1 standard drink = 0.6 oz pur e alcohol) occasionally [facility] Utilities Answer Date Recorded In the past 12 months has [employer] electric, gas, oil, or water company threatened [...] you attend chur or protestant services? Never 12/31/2022 Do you belong to [...] Recorded Patient Health Questionnaire-2 Score 0 12/31/2022 [facility] - Occupational [...] place to sleep or slept in a intermediate (including now)? No 03/20/2023 Housing Stability Vital [...] Assessment Author Status No 03/26/2023 2:44 PM Micahel Leal RN Active * Are you blind [...] 1:51 PM Dunia Wilson RN Active * Whitman Suicide Severity Rating Scale (Screener/Recent Self-Report) Question [...] st Contact Info) Description 05/24/2025 10:20 AM FILM SOUND COORDINATOR Office Visit [facility] [address] [facility] [place] [phone] Leonardo Washburn MD [address] [facility] [address] [place], [place] [id number] documented as of this encounter Goals Goal Patient Goal Type Associated Problems Recent Progress Patient-Stated? Author HOME TO INDEPENDENT LIVING. General No Chiquis Alicia, RN Patient will return to prior living situation and remain independent in ADLs upon discharge from hospital Lifestyle No Jeri Lara LSW Health - patient able to perform ADLs independently Lifestyle No Latrice Marie, SUPERVISOR BEET END Health - patient able to perform ADLs independently Lifestyle No Latrice Marie, SUPERVISOR BEET END documented as of this encounter Results * (ABNORMAL) BASIC METABOLIC PANEL (03/07/2024 11:47 AM FILM SOUND COORDINATOR) GLUCOSE 121(H) 70 - 99 MG/DL 03/07/2024 1:23 PM FILM SOUND COORDINATOR [facility] BUN 36(H) 7 - 18 MG/DL 03/07/2024 1:23 PM FILM SOUND COORDINATOR [facility] CREATININE S/P/B 5.63(HH) 0.55 - 1.02 MG/DL 03/07/2024 1:23 PM FILM SOUND COORDINATOR [facility] Comment: Critical Result(s) Called at: 13:22:32 on 03/07/2024 by: ADRIANA WALLACE to and read back by:BILL HAQUE SODIUM S/P/B 138 136 - 145 MMOL/L 03/07/2024 1:23 PM FILM SOUND COORDINATOR [facility] POTASSIUM S/P/B 3.9 3.5 - 5.1 MMOL/L 03/07/2024 1:23 PM FILM SOUND COORDINATOR [facility] CHLORIDE S/P/B 108 97 - 115 MMOL/L 03/07/2024 1:23 PM FILM SOUND COORDINATOR [facility] CO2 22.3 21 - 32 MMOL/L 03/07/2024 1:23 PM [facility] CALCIUM S/P/B 7.7(L) 8.5 - 10.1 MG/DL 03/07/2024 1:23 PM [facility] ANION GAP 7.7 2 - 10 MMOL/L 03/07/2024 1:23 PM [facility] BUN CREATININE RATIO 6.4 6 - 26 03/07/2024 1:23 PM [facility] GFR ESTIMATE 10(L) >90 ML/MIN/1.7 3 M2 03/07/2024 1:23 PM [facility] Comment: NOTE: eGFR is not calculated for patients <18 years of age or gender unknown. This is an estimated GFR calculation using the new CKD EPI creatinine equation without race and so does not require a correction factor for race. This estimated GFR should not be used for calculating drug doses. 03/07/2024 11:4 7 AM FILM SOUND COORDINATOR Mehnaz Boogie [facility] Final Resu lt [facility] [address] [place] [address], * (ABNORMAL) CBC W/DIFF AUTOMATED (03/07/2024 11:47 AM FILM SOUND COORDINATOR) WBC 7.02 4.5 - 11.0 x10'3/uL 03/07/2024 12:00 PM [facility] RBC 4.76 4.20 - 5.40 x10'6/uL 03/07/2024 12:00 PM [facility] HGB 11.6(L) 12.0 - 16.0 G/DL 03/07/2024 12:00 PM [facility] HCT 37.7(L) 38.0 - 48.0 % 03/07/2024 12:00 PM [facility] MCV 79.2(L) 81.0 - 99.0 FL 03/07/2024 12:00 PM [facility] MCH 24.4(L) 27.0 - 31.0 PG 03/07/2024 12:00 PM [facility] MCHC 30.8(L) 32.0 - 36.0 G/DL 03/07/2024 12:00 PM [facility] RDW 16.5(H) 11.5 - 14.5 % 03/07/2024 12:00 PM [facility] PLT 369 130 - 400 x10'3/uL 03/07/2024 12:00 PM [facility] MPV 10.1 9.3 - 12.2 FL 03/07/2024 12:00 PM [facility] DIFFERENTIAL TYPE AUTOMATED DIFFERENTIAL 03/07/2024 12:00 PM [facility] NEUTROPHILS % 55.0 % 03/07/2024 12:00 PM [facility] LYMPHOCYTES % 29.6 % 03/07/2024 12:00 PM [facility] MONOCYTES % 7.5 % 03/07/2024 12:00 PM [facility] EOSINOPHILS 7.3 % 03/07/2024 12:00 PM [facility] BASOPHILS 0.3 % 03/07/2024 12:00 PM [facility] IMMATURE GRANS % 0.3 % 03/07/20 12:00 PM [facility] ABS. NEUTROPHILS 3.86 1.80 - 7.70 x10'3/uL 03/07/2024 12:00 PM FILM SOUND COORDINATOR [facility] ABS. LYMPHOCYTES 2.08 1.00 - 4.80 x10'3/uL 03/07/2024 12:00 PM FILM SOUND COORDINATOR [facility] ABS. MONOCYTES 0.53 0.24 - 0.86 x10'3/uL 03/07/2024 12:00 PM FILM SOUND COORDINATOR [facility] ABS. EOSINOPHILS 0.51(H) 0.04 - 0.36 x10'3/uL 03/07/2024 12:00 PM FILM SOUND COORDINATOR [facility] ABS. BASOPHILS 0.02 0.01 - 0.08 x10'3/uL 03/07/2024 12:00 PM FILM SOUND COORDINATOR [facility] ABS. IMMATURE GRANULOCYTES 0.02 0.00 - 0.49 x10'3/uL 03/07/2024 12:00 PM FILM SOUND COORDINATOR [facility] 03/07/2024 11:4 7 AM FILM SOUND COORDINATOR Mehnaz Boogie [facility] Final Resu lt [facility] [address] [place] [address], * (ABNORMAL) HEMOGLOBIN, GLYCOSYLATED (03/07/2024 11:47 AM FILM SOUND COORDINATOR) HGB A1C 13.5(H) <5.7 % 03/07/2024 1:55 PM FILM SOUND COORDINATOR [facility] Comment: ADA GUIDELINES 2010 5.7 TO 6.4% INCREASED RISK OF DIABETES > OR = 6.5% CONSISTENT WITH DIABETES ESTIMATED AVG GLUCOSE 341 mg/dL 03/07/2024 1:55 PM FILM SOUND COORDINATOR [facility] 03/07/2024 11:4 7 AM FILM SOUND COORDINATOR us Juan Long MD LABORATORY Final Result [facility] [address] [place] [address], [place] [phone] documented in this encounter Visit Diagnoses Diagnosis Encounter for adjustment and management of vascular access device- Primary Gastroparesis Diabetes mellitus ([facility]) Type II or unspecified type diabetes mellitus without mention of complication, not stated as uncontrolled Uncontrolled type 1 diabetes mellitus with hyperglycemia, with long-term current use of insulin ([facility]) senior living (current) use of insulin ([facility]) documented in this encounter Additional Health Concerns Infection Onset Date Last Indicated Resolved Time MRSA Comment:04/27/23 +MRSA Urine 10/23/23 +MRSA from [facility]. Added from external infection. Source: [facility]. 02/09/24 +MRSA Nares from [facility]. 05/08/24 +MRSA Nares 10/23/2023 12/04/2024 COVID-19 Rule Out 03/12/2024 03/12/2024 03/12/2024 3:51 PM FILM SOUND COORDINATOR COVID-19 Rule Out 04/04/2024 04/04/2024 04/04/2024 5:10 PM FILM SOUND COORDINATOR COVID-19 Rule Out 04/24/2024 04/24/2024 04/24/2024 8:24 PM FILM SOUND COORDINATOR RSV 04/24/2024 04/24/2024 05/04/2024 12:3 2 AM FILM SOUND COORDINATOR COVID-19 Rule Out 05/08/2024 05/08/2024 05/08/2024 4:15 PM FILM SOUND COORDINATOR Tuberculosis Rule-Out 05/09/2024 05/09/20242024 10:09 AM FILM SOUND COORDINATOR COVID-19 Rule Out 05/17/2024 05/17/2024 05/17/2024 4:44 PM FILM SOUND COORDINATOR Respiratory Rule Out 07/05/2024 07/05/2024 025 10:03 [...] documented as of this encounter Care Teams Men'S Designer Relationship Specialty Start Date End Date Lay Cota MD PCP - General FAMILY PRACTICE 12/10/22 07/02/24 Edgardo Aldridge MD [address] [facility] [address] [address] PCP - General FAMILY PRACTICE 07/03/24 Keely Ugalde APRN [address] [place] [address] PCP - Hospice Attending 10/06/24 Keely Ugaled APRN [address] [place] [id number] Nurse Practitioner PALLIATIVE CARE 10/09/24 Odilon Tellez MD [address] [address] Consulting Physician NEPHROLOGY 11/17/24 Leonardo Washburn MD [address] [address] Consulting Physician Internal Medicine Pulmonary Disease 11/17/24 Young Vasquez MD [address] [facility] [address] [place] [address] GASTROENTEROLOGY 11/17/24 Andrei Chaves MD [address] [place] [address] SURGERY 11/17/24 documented as of this encounter
--- OUTSIDE RECORDS SUMMARY | 2025-02-22 18:18 | XMS_ITS | Clinical Summary ---
Author Organization [facility] Address [address] [facility] [place] [address] Care Team Providers Care Sustainable Landscape Architect Name Role Phone Edgardo Aldridge MD Primary Care Provider [phone] Source Comments [facility],non-owned Affiliates and Associated Physician Practices is amultiple site organization consisting of ambulatory clinics and hospital sitesin [place], [place], [place] and [place]. This disclosure is being madepursuant to the Care Everywhere program and may not contain all information available regarding this patient. 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 Estimated Average Glucose 369 mg/dL 06/08/2018 8:06 AM AERODYNAMICS PROFESSOR [facility] Blood BLOOD SPECIMEN / Unknown Lab Venipuncture / Unknown 06/08/2018 7:21 AM AERODYNAMICS PROFESSOR 06/08/2018 7:37 AM AERODYNAMICS PROFESSOR Corina Simmons MD LAB - CHEMISTRY ORDERABLES Final Result [facility] [address] [place] [address] from Last 3 Months or Most Recently Relevant to Health [place] [id number] [place] - [place] [facility] [place]ICAID - [place] MEDICARE MEDICAID - [...] 10:29 AM 07/09/2015 1:11 PM Care Teams Sustainable Landscape Architect Relationship Specialty Start Date End Date Edgardo Aldridge MD [address] [facility] [address] [address] PCP - General Family Medicine 12/28/23
--- OUTSIDE RECORDS SUMMARY | 2025-02-22 18:18 | XMS_ITS ---
Author Organization [facility] Address [address] [place] [address] Care Team Providers Care Telecommunications Cable Jointer Name Role Phone Andrei Chaves MD PhD Unavailable [phone] Olivia Phelps MD Unavailable [phone] Edgardo Aldridge MD Primary Care Provider [phone] Odilon Tellez MD Unavailable [phone] Ayaka Thomas MD Unavailable [phone] Yumi Jones NP Unavailable [phone] Odilon Tellez MD Unavailable [phone] Dialysis Access Sites Type Status Location [...] Medium 01/11/2024 Medications blood-glucose meter,continuous (Dexcom G6 Rubber Roller Grinder Operator) miscIndications:Unc ontrolled type 1 diabetes mellitus with hyperglycemia, with long-term current use of insulin (HCC) 1 Dexcom G6 Rubber Roller Grinder Operator 1 each 023 Active OneTouch Delica [...] hyperglycemia, with long-term current use of insulin ([facility]) Will use 1 sensor every 10 days. 1 box = 3 sensors. 3 each 11 025 Active blood-glucose transmitter (Dexcom G6 Transmitter) deviceIndications:U ncontrolled type 1 diabetes mellitus with hyperglycemia, with long-term current use of insulin ([facility]) Will use 1 transmitter every [...] kidney, consider outpatient followup (e.g. renal US). 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 Assessment & Plan (05/13/2022 9:19 AM GROUP SALES COORDINATOR): Glucose overall improved Continue current regimen Given [...] xanx Assessment & Plan (05/15/2020 6:30 AM GROUP SALES COORDINATOR): Uncontrolled Start cymbalta, xanax Odynophagia 04/09/2020 DKA [...] not be able to see her own full time until September. Continue to monitor. 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 - continues to have severe [...] same. Plan change to esophageal diet today. Telecommunications Clerk to review prior to dc Plan f/u with Dr Chaves in GI as OP Assessment & Plan (03/31/2022 5:47 PM GROUP SALES COORDINATOR): Type 1 diabetic Cyclical vomiting, gastroparesis - [...] year. Has an appointment for GI in [place] next month. Currently is on SSI, but [...] q1hr Assessment & Plan (05/15/2020 2:56 PM GROUP SALES COORDINATOR): Needs letter for another 2 weeks off and when returns needs intermittent restrictions on return with no more than 3 days per week, but not consecutive 3 days Assessment & Plan (05/15/2020 6:29 AM GROUP SALES COORDINATOR): Uncontrolled Cont treatment per GI Cont reglan Has PICC line Assessment & Plan (06/27/2019 8:44 AM CDT): - Chronic emesis which triggers DKA. No active symptoms now. - PCP follow up. - Glucose control as above. Assessment & Plan (04/21/2019 1:24 PM GROUP SALES COORDINATOR): -Patient reports h/o positive gastric emptying study [...] had discussion with patient regarding pain control. FDC opioids would be a very poor choice for her, given her gastroparesis, young age, and potential for developing dependence/addiction. Will not discharge on opioids. Assessment & Plan (04/20/2019 6:16 PM GROUP SALES COORDINATOR): -Patient reports h/o positive gastric emptying study [...] fluids Assessment & Plan (03/29/2020 5:23 AM GROUP SALES COORDINATOR): Uncontrolled Cont long acting insulin with SSI F/u with sow manager Assessment & Plan (03/20/2020 5:26 AM GROUP SALES COORDINATOR): Uncontrolled Cont insulin pump per endocrinology Vitamin [...] losartan Assessment & Plan (03/31/2022 5:47 PM GROUP SALES COORDINATOR): Not at goal Pt left office today [...] 10mg Assessment & Plan (03/29/2020 5:24 AM GROUP SALES COORDINATOR): Stable Cont lisinopril, amlodipine Assessment & Plan [...] lisinopril. Assessment & Plan (06/12/2019 12:12 PM GROUP SALES COORDINATOR): continue lisinopril and toprol xl , clonidine patch Assessment & Plan (06/11/2019 1:52 PM GROUP SALES COORDINATOR): _BP better today , continue lisinopril and toprol xl Assessment & Plan (05/07/2019 2:03 PM GROUP SALES COORDINATOR): On clonidine, metoprolol and lisinopril at home. - continue home clonidine and metoprolol - hold lisinopril for now (? EUGENIE related intestinal angioedema). May need to consider alternative anti-hypertensive if needed as a trial. Assessment & Plan (04/28/2019 4:43 PM GROUP SALES COORDINATOR): - Cont home meds Assessment & Plan (04/27/2019 2:59 PM GROUP SALES COORDINATOR): - Cont home meds Assessment & Plan (04/21/2019 12:59 PM GROUP SALES COORDINATOR): Clonidine patch and metoprolol XL -BP stable Assessment & Plan (04/11/2019 12:43 PM GROUP SALES COORDINATOR): Cont lisinopril and Toprol XL, and due for change of clonidine patch Assessment & Plan (04/10/2019 11:29 AM GROUP SALES COORDINATOR): BP elevated this am but improved after [...] any clubs o r organizations such as congregation groups, unions, fraternal or athletic groups, or [...] Date Recorded PHQ-2 Total Score 0 01/09/2025 [facility] [place] of Occupat ional Health - Occupational Stress [...] slept in a retirement (including now)? No 08/30/2023 PHQ-9 Answer Date [...] time in the past 12 m [place], were you homeless or living in a retirement (including now)? No 11/07/2024 Social Connection and [...] attend chur ch or yazidism services? Never 01/17/2025 Do you belong to any clubs o r organizations such as congregation groups, unions, fraternal or athletic groups, or [...] time in the past 12 m [place], were you homeless or living in a retirement (including now)? No 01/17/2025 [facility] Utilities Answer Date Recorded In the past [...] on file Legal Sex Female 9:16 AM GROUP SALES COORDINATOR Gender Identity Not on file Sexual [...] 68 kg (150 lb) 02/21/2025 11:55 AM GROUP SALES COORDINATOR Height 162.6 cm (5' 4) 02/21/2025 11:55 AM GROUP SALES COORDINATOR Body Mass Index 25.75 02/21/2025 11:55 AM GROUP SALES COORDINATOR Results * POCT glucose (01/26/2025 10:36 AM CDT) Glucose, POC 135 70 - 199 mg/dL Comment: Interpretive Data Glucose is assumed to be non-fasting. Fasting Glucose reference ranges are: 0 - 150 years: 70 mg/dL - 99 mg/dL Current interpretive data was last revised on 2013. POC Device Number [id number] 1 BERLINNER BARBARAWCH Blood 01/26/2025 10:3 6 AM CDT 01/26/2025 10:36 AM CDT Devang Henning MD LAB POCT ORDERABLES - DEVICE Final Result Performing Organization Address [facility] Phone Number [facility] [address] [facility] [employer] [place], [place] [phone] * POCT glucose (01/26/2025 8:22 AM CDT) Glucose, POC 81 70 - 199 mg/dL Comment: Interpretive Data Glucose is assumed to be non-fasting. Fasting Glucose reference ranges are: 0 - 150 years: 70 mg/dL - 99 mg/dL Current interpretive data was last revised on 2013. POC Device Number [id number] 1 CERNER BARBARAWCH Blood 01/26/2025 8:22 AM CDT 01/26/2025 8:22 AM CDT Devang Henning MD LAB POCT ORDERABLES - DEVICE Final Result Performing Organization Address [facility] Phone Number [facility] BJWCH [address] [facility] [employer] [place], [place] [phone] * POCT glucose (01/26/2025 5:50 AM CDT) Glucose, POC 81 70 - 199 mg/dL Comment: Interpretive Data Glucose is assumed to be non-fasting. Fasting Glucose reference ranges are: 0 - 150 years: 70 mg/dL - 99 mg/dL Current interpretive data was last revised on 2013. POC Device Number [id number] 1 HERBER MARCANO Blood 01/26/2025 5:50 AM CDT 01/26/2025 5:50 AM CDT Devang Henning MD LAB POCT ORDERABLES - DEVICE Final Result Performing Organization Address [facility] de Phone Number [facility] [address] [facility] [place] [address] * POCT glucose (01/26/2025 1:53 AM CDT) Glucose, POC 144 70 - 199 mg/dL Comment: Interpretive Data Glucose is assumed to be non-fasting. Fasting Glucose reference ranges are: 0 - 150 years: 70 mg/dL - 99 mg/dL Current interpretive data was last revised on 2013. POC Device Number [id number] 1 HERBER MARCANO Blood 01/26/2025 1:53 AM CDT 01/26/2025 1:53 AM CDT Devang Henning MD LAB POCT ORDERABLES - DEVICE Final Result Performing Organization Address [facility] de Phone Number HERBER BJWCH [address] [facility] [employer] [place], [place] [phone] * POCT glucose (01/25/2025 9:55 PM CDT) Glucose, POC 172 70 - 199 mg/dL Comment: Interpretive Data Glucose is assumed to be non-fasting. Fasting Glucose reference ranges are: 0 - 150 years: 70 mg/dL - 99 mg/dL Current interpretive data was last revised on 2013. POC Device Number [id number] 1 HERBER MARCANO Blood 01/25/2025 9:55 PM CDT 01/25/2025 9:55 PM CDT Devang Henning MD LAB POCT ORDERABLES - DEVICE Final Result Performing Organization Address [facility] Co de Phone Number HERBER REINACH [address] [place] [address] * POCT glucose (01/25/2025 5:42 PM CDT) Glucose, POC 110 70 - 199 mg/dL Comment: Interpretive Data Glucose is assumed to be non-fasting. Fasting Glucose reference ranges are: 0 - 150 years: 70 mg/dL - 99 mg/dL Current interpretive data was last revised on 2013. POC Device Number [id number] 1 HERBER MARCANO Blood 01/25/2025 5:42 PM CDT 01/25/2025 5:42 PM CDT Devang Henning MD LAB POCT ORDERABLES - DEVICE Final Result Performing Organization Address [facility] Phone Number HERBER JIMENEZWCH [address] [place] [address] * POCT glucose (01/25/2025 12:57 PM CDT) Glucose, POC 81 70 - 199 mg/dL Comment: Interpretive Data Glucose is assumed to be non-fasting. Fasting Glucose reference ranges are: 0 - 150 years: 70 mg/dL - 99 mg/dL Current interpretive data was last revised on 2013. POC Device Number [id number] 1 HERBER MARCANO Blood 01/25/2025 12:5 7 PM CDT 01/25/2025 12:57 PM CDT Devang Henning MD LAB POCT ORDERABLES - DEVICE Final Result Performing Organization Address [facility] Co de Phone Number HERBER JIMENEZWCH [address] [facility] [place] [address] * (ABNORMAL) POCT glucose (01/25/2025 12:39 PM CDT) Glucose, POC 64(L) 70 - 199 mg/dL Comment: Interpretive Data Glucose is assumed to be non-fasting. Fasting Glucose reference ranges are: 0 - 150 years: 70 mg/dL - 99 mg/dL Current interpretive data was last revised on 2013. POC Device Number [id number] [facility] Glucose comment 1 RN/MD Notified HERBER REINACH Blood 01/25/2025 12:3 9 PM CDT 01/25/2025 12:39 PM CDT Devang Henning MD LAB POCT ORDERABLES - DEVICE Final Result Performing Organization Address [facility] Co de Phone Number [facility] [address] [facility] [place] [address] * POCT glucose (01/25/2025 10:43 AM CDT) Pathologist [facility] Glucose, POC 84 70 - 199 mg/dL Comment: Interpretive Data Glucose is assumed to be non-fasting. Fasting Glucose reference ranges are: 0 - 150 years: 70 mg/dL - 99 mg/dL Current interpretive data was last revised on 2013. POC Device Number [id number] 3 HERBER JIMENEZWCH Blood 01/25/2025 10:4 3 AM CDT 01/25/2025 10:43 AM CDT us Devang Henning MD LAB POCT ORDERABLES - DEVICE Final Result Performing Organization Address City/[facility]/ZIP Co de Phone Number [facility] B[facility] [address] [facility] [place] [address] * POCT glucose (01/25/2025 9:08 AM CDT) Glucose, POC 90 70 - 199 mg/dL Comment: Interpretive Data Glucose is assumed to be non-fasting. Fasting Glucose reference ranges are: 0 - 150 years: 70 mg/dL - 99 mg/dL Current interpretive data was last revised on 2013. POC Device Number [id number] 3 HERBER MARCANO Blood 01/25/2025 9:08 AM CDT 01/25/2025 9:08 AM CDT Devang Henning MD LAB POCT ORDERABLES - DEVICE Final Result Performing Organization Address [facility] de Phone Number HER[facility]TCH [address] [facility] [employer] [place], [place] [phone] * POCT glucose (01/25/2025 7:51 AM CDT) Glucose, POC 99 70 - 199 mg/dL Comment: Interpretive Data Glucose is assumed to be non-fasting. Fasting Glucose reference ranges are: 0 - 150 years: 70 mg/dL - 99 mg/dL Current interpretive data was last revised on 2013. POC Device Number [id number] 3 HERBER MARCANO Blood 01/25/2025 7:51 AM CDT 01/25/2025 7:51 AM CDT Devang Henning MD LAB POCT ORDERABLES - DEVICE Final Result Performing Organization Address [facility] de Phone Number HERBER BJWCH [phone] [employer] [facility] [place] [address] * POCT glucose (01/25/2025 5:21 AM CDT) Glucose, POC 129 70 - 199 mg/dL Comment: Interpretive Data Glucose is assumed to be non-fasting. Fasting Glucose reference ranges are: 0 - 150 years: 70 mg/dL - 99 mg/dL Current interpretive data was last revised on 2013. POC Device Number [id number] 3 HERBER MARCANO Blood 01/25/2025 5:21 AM CDT 01/25/2025 5:21 AM CDT Devang Henning MD LAB POCT ORDERABLES - DEVICE Final Result Performing Organization Address [facility] Co de Phone Number HERBER JIMENEZWCH [address] [facility]. [facility] [employer] [place], [place] [phone] * (ABNORMAL) eGFR (01/25/2025 5:18 AM CDT) [...] ORDERABLES Final Res ult Performing Organization Address City/[facility]/ZIP Co de Phone Number HERBER BJWCH [address] [place] [facility] [employer] [place], [place] [phone] * Magnesium (01/25/2025 5:18 AM CDT) Magnesium 2.4 1.4 - 2.5 mg/dL Comment: Reference Data. Reference values for Labor and Delivery patients: < or = 0.7 mg/dL to > or = 7.3 mg/dL Current reference data last reviewd on 01/16/2015. Blood 01/25/2025 5:18 AM CDT 01/25/2025 5:54 AM CDT us Devang Henning MD LAB BLOOD ORDERABLES Final Result [facility] [address] [facility]. Department [place] [address] * (ABNORMAL) Renal function panel (01/25/2025 5:18 [...] Final Res ult Performing Organization Address [facility] Co de Phone Number HERBER JIMENEZCH [address] [facility]. [facility] [place] [address] * POCT glucose (01/25/2025 2:02 AM CDT) Glucose, POC 181 70 - 199 mg/dL Comment: Interpretive Data Glucose is assumed to be non-fasting. Fasting Glucose reference ranges are: 0 - 150 years: 70 mg/dL - 99 mg/dL Current interpretive data was last revised on 2013. POC Device Number [id number] 3 HERBER JIMENEZWCYDNEY Blood 01/25/2025 2:02 AM CDT 01/25/2025 2:02 AM CDT Devang Henning MD LAB POCT ORDERABLES - DEVICE Final Result Performing Organization Address [facility] Co de Phone Number HERBER JIMENEZWCH [address] [facility]. [facility] [place] [address] * (ABNORMAL) POCT glucose (01/24/2025 10:05 PM CDT) Glucose, POC 243(H) 70 - 199 mg/dL Comment: Interpretive Data Glucose is assumed to be non-fasting. Fasting Glucose reference ranges are: 0 - 150 years: 70 mg/dL - 99 mg/dL Current interpretive data was last revised on 2013. POC Device Number [id number] 3 BERLINNER BARBARAWCH Blood 01/24/2025 10:0 5 PM CDT 01/24/2025 10:05 PM CDT Devang Henning MD LAB POCT ORDERABLES - DEVICE Final Result Performing Organization Address City/[facility] Co de Phone Number HERBER JIMENEZWCH [address] [facility]. [facility] [place] [address] * POCT glucose (01/24/2025 6:13 PM CDT) Glucose, POC 134 70 - 199 mg/dL Comment: Interpretive Data Glucose is assumed to be non-fasting. Fasting Glucose reference ranges are: 0 - 150 years: 70 mg/dL - 99 mg/dL Current interpretive data was last revised on 2013. POC Device Number [id number] 3 HERBER MARCANO Blood 01/24/2025 6:13 PM CDT 01/24/2025 6:13 PM CDT Devang Henning MD LAB POCT ORDERABLES - DEVICE Final Result Performing Organization Address [facility] de Phone Number [facility] [address] [facility]. [facility] [place] [address] * POCT glucose (01/24/2025 12:59 PM CDT) Glucose, POC 110 70 - 199 mg/dL Comment: Interpretive Data Glucose is assumed to be non-fasting. Fasting Glucose reference ranges are: 0 - 150 years: 70 mg/dL - 99 mg/dL Current interpretive data was last revised on 2013. POC Device Number [id number] 3 HERBER MARCANO Blood 01/24/2025 12:5 9 PM CDT 01/24/2025 12:59 PM CDT Devang Henning MD LAB POCT ORDERABLES - DEVICE Final Result Performing Organization Address [facility] Co de Phone Number [facility] BJWCH [address] [facility]. [facility] [place] [address] * POCT glucose (01/24/2025 9:32 AM CDT) Glucose, POC 111 70 - 199 mg/dL Comment: Interpretive Data Glucose is assumed to be non-fasting. Fasting Glucose reference ranges are: 0 - 150 years: 70 mg/dL - 99 mg/dL Current interpretive data was last revised on 2013. POC Device Number [id number] 3 HERBER MARCANO Blood 01/24/2025 9:32 AM CDT 01/24/2025 9:32 AM CDT Devang Hnening MD LAB POCT ORDERABLES - DEVICE Final Result Performing Organization Address [facility] Co de Phone Number HERBER REINACH [address] [place] [facility] [employer] [place], [place] [phone] * (ABNORMAL) eGFR (01/24/2025 5:56 AM CDT) [...] ORDERABLES Final Result Performing Organization Address [facility]/ZIP Co de Phone Number HERBER BJWCH [address] [employer] [place] [address] * Magnesium (01/24/2025 5:56 AM CDT) Magnesium 2.0 1.4 - 2.5 mg/dL Comment: Reference Data. Reference values for Labor and Delivery patients: < or = 0.7 mg/dL to > or = 7.3 mg/dL Current reference data last reviewd on 01/16/2015. Blood 01/24/2025 5:56 AM CDT 01/24/2025 6:25 AM CDT Devang Henning MD LAB BLOOD ORDERABLES Final Result [facility] [address] [facility]. [employer] [place] [address] * (ABNORMAL) Renal function panel (01/24/2025 5:56 AM CDT) Sodium 134(L) 135 - 145 mmol/L Potassium, pl 4.8 3.3 - 4.9 mmol/L CERNER BJW Chloride 96(L) 97 - 110 mmol/L CERNER BJW[facility] CO2 30 22 - 32 mmol/L CERNER B[facility] Anion gap 8 2 - 15 mmol/L [facility] BUN 34(H) 6 - 25 mg/dL CERNER W Creatinine 4.40(H) 0.60 - 1.10 mg/dL CERNER [facility] Glucose 115 70 - 199 mg/dL [facility] [...] pl 3.8 2.3 - 4.5 mg/dL CERNER [facility] Albumin 3.7 3.5 - 5.0 g/dL [facility] Blood 01/24/2025 5:56 AM CDT 01/24/2025 6:25 AM CDT Devang Henning MD LAB BLOOD ORDERABLES Final Result Performing Organization Address [facility] de Phone Number [facility] [address] [facility] [place] [address] * POCT glucose (01/24/2025 5:43 AM CDT) Glucose, POC 115 70 - 199 mg/dL Comment: Interpretive Data Glucose is assumed to be non-fasting. Fasting Glucose reference ranges are: 0 - 150 years: 70 mg/dL - 99 mg/dL Current interpretive data was last revised on 2013. POC Device Number [id number] 3 HERBER REINA Blood 01/24/2025 5:43 AM CDT 01/24/2025 5:43 AM CDT Devang Henning MD LAB POCT ORDERABLES - DEVICE Final Result Performing Organization Address [facility] de Phone Number [facility] MON[facility] [address] [facility] [place] [address] * POCT glucose (01/24/2025 1:53 AM CDT) Glucose, POC 120 70 - 199 mg/dL Comment: Interpretive Data Glucose is assumed to be non-fasting. Fasting Glucose reference ranges are: 0 - 150 years: 70 mg/dL - 99 mg/dL Current interpretive data was last revised on 2013. POC Device Number [id number] 3 HERBER MARCANO Blood 01/24/2025 1:53 AM CDT 01/24/2025 1:53 AM CDT Devang Henning MD LAB POCT ORDERABLES - DEVICE Final Result Performing Organization Address [facility] de Phone Number HERBER B[facility]CH [address] [facility] [place] [address] * POCT glucose (01/23/2025 9:51 PM CDT) [facility] Glucose, POC 134 70 - 199 mg/dL Comment: Interpretive Data Glucose is assumed to be non-fasting. Fasting Glucose reference ranges are: 0 - 150 years: 70 mg/dL - 99 mg/dL Current interpretive data was last revised on 2013. POC Device Number [id number] 3 HERBER BJWCH Blood 01/23/2025 9:51 PM CDT 01/23/2025 9:51 PM CDT Devang Henning MD LAB POCT ORDERABLES - DEVICE Final Result Performing Organization Address [facility] Phone Number HERBER BJWCH [address] [facility] [place] [address] * US Abdomen Complete (01/23/2025 9:18 PM [...] last revised on 2013. POC Device Number [id number] 3 HERBER JIMENEZWCYDNEY Blood 01/23/2025 4:58 PM CDT 01/23/2025 4:58 PM CDT Devang Henning MD LAB POCT ORDERABLES - DEVICE Final Result Performing Organization Address [facility] Co de Phone Number [facility] [address] [facility]Washington [facility] [place] [address] * POCT glucose (01/23/2025 12:15 PM CDT) Glucose, POC 107 70 - 199 mg/dL Comment: Interpretive Data Glucose is assumed to be non-fasting. Fasting Glucose reference ranges are: 0 - 150 years: 70 mg/dL - 99 mg/dL Current interpretive data was last revised on 2013. POC Device Number [id number] 3 HERBER MARCANO Blood 01/23/2025 12:1 5 PM CDT 01/23/2025 12:15 PM CDT Devang Henning MD LAB POCT ORDERABLES - DEVICE Final Result Performing Organization Address [facility] Co de Phone Number [facility] [address] [facility]White [facility] [place] [address] * (ABNORMAL) eGFR (01/23/2025 6:36 [...] LAB BLOOD ORDERABLES Final Res ult [facility] [address] [employer] [place] [address] * (ABNORMAL) Renal function panel (01/23/2025 6:36 AM CDT) Sodium 136 135 - 145 mmol/L Potassium, pl 6.1(H) 3.3 - 4.9 mmol/L [facility] Chloride 97 97 - 110 mmol/L [facility] CO2 27 22 - 32 mmol/L [facility] Anion gap 12 2 - 15 mmol/L [facility] BUN 76(H) 6 - 25 mg/dL [facility] Creatinine 7.40(H) 0.60 - 1.10 mg/dL [facility] Glucose 190 70 - 199 mg/dL [facility] Comment: Interpretive Data Fasting glucose >/= [...] 2022. Calcium 9.2 8.5 - 10.3 mg/dL [facility] Phosphorus, pl 5.0(H) 2.3 - 4.5 mg/dL [facility] Albumin 3.7 3.5 - 5.0 g/dL [facility] Blood 01/23/2025 6:36 AM CDT 01/23/2025 6:41 AM CDT Jeffrey Osorio MD PhD LAB BLOOD ORDERABLES Final Res ult Performing Organization Address [facility]/ZIP Co de Phone Number [facility] [address] [facility] Center[facility] [place] [address] * (ABNORMAL) POCT glucose (01/23/2025 6:17 AM CDT) Glucose, POC 217(H) 70 - 199 mg/dL Comment: Interpretive Data Glucose is assumed to be non-fasting. Fasting Glucose reference ranges are: 0 - 150 years: 70 mg/dL - 99 mg/dL Current interpretive data was last revised on 2013. POC Device Number [id number] [address] [facility] Blood 01/23/2025 6:17 AM CDT 01/23/2025 6:17 AM CDT us Devang Henning MD LAB POCT ORDERABLES - DEVICE Final Result Performing Organization Address [facility]/ZIP Co de Phone Number [facility] [address] [facility] [place] [address] * (ABNORMAL) POCT glucose (01/23/2025 2:08 AM CDT) Glucose, POC 229(H) 70 - 199 mg/dL Comment: Interpretive Data Glucose is assumed to be non-fasting. Fasting Glucose reference ranges are: 0 - 150 years: 70 mg/dL - 99 mg/dL Current interpretive data was last revised on 2013. POC Device Number [id number] 3 HERBER REINACH Blood 01/23/2025 2:08 AM CDT 01/23/2025 2:08 AM CDT Jeffrey Osorio MD PhD LAB POCT ORDERABLES - DEVICE F inal Result Performing Organization Address [facility] Phone Number [facility] [address] [facility] [place] [address] * POCT glucose (01/22/2025 11:38 PM CDT) Glucose, POC 195 70 - 199 mg/dL Comment: Interpretive Data Glucose is assumed to be non-fasting. Fasting Glucose reference ranges are: 0 - 150 years: 70 mg/dL - 99 mg/dL Current interpretive data was last revised on 2013. POC Device Number [id number] 3 HERBER MARCANO Blood 01/22/2025 11:3 8 PM CDT 01/22/2025 11:38 PM CDT us Jeffrey Osorio MD PhD LAB POCT ORDERABLES - DEVICE F inal Result Performing Organization Address [facility] Phone Number [facility] [address] [facility] [place] [address] * POCT glucose (01/22/2025 8:14 PM CDT) Glucose, POC 125 70 - 199 mg/dL Comment: Interpretive Data Glucose is assumed to be non-fasting. Fasting Glucose reference ranges are: 0 - 150 years: 70 mg/dL - 99 mg/dL Current interpretive data was last revised on 2013. POC Device Number [id number] 3 BERLINNER BARBARAWCH Blood 01/22/2025 8:14 PM CDT 01/22/2025 8:14 PM CDT us Jeffrey Osorio MD PhD LAB POCT ORDERABLES - DEVICE F inal Result Performing Organization Address [facility] de Phone Number HERBER JIMENEZCH [address] [facility] [employer] [place], [place] [id number] * POCT glucose (01/22/2025 5:25 PM CDT) Glucose, POC 112 70 - 199 mg/dL Comment: Interpretive Data Glucose is assumed to be non-fasting. Fasting Glucose reference ranges are: 0 - 150 years: 70 mg/dL - 99 mg/dL Current interpretive data was last revised on 2013. POC Device Number [id number] 4 HERBER MARCANO Blood 01/22/2025 5:25 PM CDT 01/22/2025 5:25 PM CDT us Jeffrey Osorio MD PhD LAB POCT ORDERABLES - DEVICE F inal Result Performing Organization Address [facility] de Phone Number HER[facility] JIMENEZWCH [address] [facility] [place] [address] * POCT glucose (01/22/2025 2:24 PM CDT) Glucose, POC 129 70 - 199 mg/dL Comment: Interpretive Data Glucose is assumed to be non-fasting. Fasting Glucose reference ranges are: 0 - 150 years: 70 mg/dL - 99 mg/dL Current interpretive data was last revised on 2013. POC Device Number [id number] 4 HERBER MARCANO Blood 01/22/2025 2:24 PM CDT 01/22/2025 2:24 PM CDT us Jeffrey Osorio MD PhD LAB POCT ORDERABLES - DEVICE F inal Result Performing Organization Address [facility] de Phone Number HERBER [facility] [address] [facility] [place] [address] * POCT glucose (01/22/2025 10:26 AM CDT) Glucose, POC 133 70 - 199 mg/dL Comment: Interpretive Data Glucose is assumed to be non-fasting. Fasting Glucose reference ranges are: 0 - 150 years: 70 mg/dL - 99 mg/dL Current interpretive data was last revised on 2013. POC Device Number [id number] 3 HERBER MARCANO Blood 01/22/2025 10:2 6 AM CDT 01/22/2025 10:26 AM CDT Jeffrey Osorio MD PhD LAB POCT ORDERABLES - DEVICE F inal Result Performing Organization Address [facility] de Phone Number [facility] [address] [facility] [employer] [place], [place] [id number] * POCT glucose (01/22/2025 6:07 AM CDT) Glucose, POC 109 70 - 199 mg/dL Comment: Interpretive Data Glucose is assumed to be non-fasting. Fasting Glucose reference ranges are: 0 - 150 years: 70 mg/dL - 99 mg/dL Current interpretive data was last revised on 2013. POC Device Number [id number] 4 HERBER MARCANO Blood 01/22/2025 6:07 AM CDT 01/22/2025 6:07 AM CDT Jeffrey Osorio MD PhD LAB POCT ORDERABLES - DEVICE F inal Result Performing Organization Address [facility] de Phone Number [facility] [address] [facility] [employer] [place], [place] [id number] * POCT glucose (01/22/2025 2:15 AM CDT) Glucose, POC 190 70 - 199 mg/dL Comment: Interpretive Data Glucose is assumed to be non-fasting. Fasting Glucose reference ranges are: 0 - 150 years: 70 mg/dL - 99 mg/dL Current interpretive data was last revised on 2013. POC Device Number [id number] 3 HERBER REINACH Blood 01/22/2025 2:15 AM CDT 01/22/2025 2:15 AM CDT us Jeffrey Osorio MD PhD LAB POCT ORDERABLES - DEVICE F inal Result Performing Organization Address [facility] Phone Number [facility] [address] [facility] [place] [address] * (ABNORMAL) POCT glucose (01/21/2025 10:28 PM CDT) Glucose, POC 340(H) 70 - 199 mg/dL Comment: Interpretive Data Glucose is assumed to be non-fasting. Fasting Glucose reference ranges are: 0 - 150 years: 70 mg/dL - 99 mg/dL Current interpretive data was last revised on 2013. POC Device Number [id number] 4 HERBER MARCANO Blood 01/21/2025 10:2 8 PM CDT 01/21/2025 10:28 PM CDT us Jeffrey Osorio MD PhD LAB POCT ORDERABLES - DEVICE F inal Result Performing Organization Address [facility] Phone Number [facility] [address] [place] [address] * POCT glucose (01/21/2025 5:23 PM CDT) Glucose, POC 195 70 - 199 mg/dL Comment: Interpretive Data Glucose is assumed to be non-fasting. Fasting Glucose reference ranges are: 0 - 150 years: 70 mg/dL - 99 mg/dL Current interpretive data was last revised on 2013. POC Device Number [id number] 4 BERLINNER LATOSHACH Blood 01/21/2025 5:23 PM CDT 01/21/2025 5:23 PM CDT us Jeffrey Osorio MD PhD LAB POCT ORDERABLES - DEVICE F inal Result Performing Organization Address [facility] de Phone Number HERBER JIMENEZCH [address] [facility] [place] [address] * POCT glucose (01/21/2025 12:29 PM CDT) Glucose, POC 194 70 - 199 mg/dL Comment: Interpretive Data Glucose is assumed to be non-fasting. Fasting Glucose reference ranges are: 0 - 150 years: 70 mg/dL - 99 mg/dL Current interpretive data was last revised on 2013. POC Device Number [id number] 3 CERLULY JIMENEZWCYDNEY Blood 01/21/2025 12:2 9 PM CDT 01/21/2025 12:29 PM CDT Jeffrey Osorio MD PhD LAB POCT ORDERABLES - DEVICE F inal Result Performing Organization Address [facility] de Phone Number [facility] [address] [facility] [place] [address] * POCT glucose (01/21/2025 8:02 AM CDT) Glucose, POC 160 70 - 199 mg/dL Comment: Interpretive Data Glucose is assumed to be non-fasting. Fasting Glucose reference ranges are: 0 - 150 years: 70 mg/dL - 99 mg/dL Current interpretive data was last revised on 2013. POC Device Number [id number] 3 CERLULY JIMENEZWCH Blood 01/21/2025 8:02 AM CDT 01/21/2025 8:02 AM CDT Jeffrey Osorio MD PhD LAB POCT ORDERABLES - DEVICE F inal Result Performing Organization Address [facility] de Phone Number [facility] [address] [facility] [place] [address] * POCT glucose (01/21/2025 6:05 AM CDT) Glucose, POC 184 70 - 199 mg/dL Comment: Interpretive Data Glucose is assumed to be non-fasting. Fasting Glucose reference ranges are: 0 - 150 years: 70 mg/dL - 99 mg/dL Current interpretive data was last revised on 2013. POC Device Number [id number] 3 HERBER MARCANO Blood 01/21/2025 6:05 AM CDT 01/21/2025 6:05 AM CDT us Jeffrey Osorio MD PhD LAB POCT ORDERABLES - DEVICE F inal Result Performing Organization Address [facility] de Phone Number [facility] [address] [facility] [employer] [place], [place] [id number] * POCT glucose (01/21/2025 1:50 AM CDT) Glucose, POC 78 70 - 199 mg/dL Comment: Interpretive Data Glucose is assumed to be non-fasting. Fasting Glucose reference ranges are: 0 - 150 years: 70 mg/dL - 99 mg/dL Current interpretive data was last revised on 2013. POC Device Number [id number] 3 HERBER MARCANO Blood 01/21/2025 1:50 AM CDT 01/21/2025 1:50 AM CDT us Jeffrey Osorio MD PhD LAB POCT ORDERABLES - DEVICE F inal Result Performing Organization Address [facility] de Phone Number [facility] B[facility] [address] [facility] [place] [address] * POCT glucose (01/20/2025 9:49 PM CDT) Glucose, POC 138 70 - 199 mg/dL Comment: Interpretive Data Glucose is assumed to be non-fasting. Fasting Glucose reference ranges are: 0 - 150 years: 70 mg/dL - 99 mg/dL Current interpretive data was last revised on 2013. POC Device Number [id number] 3 BERLINNER KRYS Blood 01/20/2025 9:49 PM CDT 01/20/2025 9:49 PM CDT us Jeffrey Osorio MD PhD LAB POCT ORDERABLES - DEVICE F inal Result Performing Organization Address [facility] Co de Phone Number HERBER REINACH [address] [facility] [place] [address] * POCT glucose (01/20/2025 4:28 PM CDT) Glucose, POC 129 70 - 199 mg/dL Comment: Interpretive Data Glucose is assumed to be non-fasting. Fasting Glucose reference ranges are: 0 - 150 years: 70 mg/dL - 99 mg/dL Current interpretive data was last revised on 2013. POC Device Number [id number] 3 HERBER JIMENEZWCH Blood 01/20/2025 4:28 PM CDT 01/20/2025 4:28 PM CDT us Jeffrey Osorio MD PhD LAB POCT ORDERABLES - DEVICE F inal Result Performing Organization Address [facility] de Phone Number HERBER JIMNEEZCH [address] [facility] [place] [address] * POCT glucose (01/20/2025 1:07 PM CDT) Glucose, POC 102 70 - 199 mg/dL Comment: Interpretive Data Glucose is assumed to be non-fasting. Fasting Glucose reference ranges are: 0 - 150 years: 70 mg/dL - 99 mg/dL Current interpretive data was last revised on 2013. POC Device Number [id number] 3 CERNER BARBARAWCH Blood 01/20/2025 1:07 PM CDT 01/20/2025 1:07 PM CDT us Jeffrey Osorio MD PhD LAB POCT ORDERABLES - DEVICE F inal Result Performing Organization Address [facility] Co de Phone Number HERBER JIMENEZCH [address] [facility] [place] [address] * (ABNORMAL) eGFR (01/20/2025 10:23 AM CDT) [...] LAB BLOOD ORDERABLES Final Res ult [facility] [address] [facility] [place] [address] * Differential, auto (01/20/2025 10:23 AM CDT) Neutrophil abs 2.98 1.50 - 6.50 K/cumm Imm gran abs 0.01 0.00 - 0.10 K/cumm [facility] Lymphocyte abs 1.16 0.80 - 3.30 [...] LAB BLOOD ORDERABLES Final Res ult [facility] [address] [facility]. [place] [place] [address] * (ABNORMAL) CBC with auto differential (01/20/2025 10:23 AM CDT) WBC 4.61 3.80 - 9.90 K/cumm Hgb 8.2(L) 11.9 - 15.5 g/dL [facility] Hct 26.9(L) 35.6 - 45.5 % [facility] Plt 309 150 - 400 K/cumm [facility] MPV 10.8 9.1 - 12.[address] [facility] RBC 2.89(L) 3.90 - 5.20 M/cumm [facility] MCV 93.1 81.3 - 96.[address] [facility] MCH 28.4 27.1 - 33.[address] [facility] MCHC 30.5(L) 32.3 - 35.7 g/dL [facility] RDW CV 15.2(H) 11.1 - 14.9 % [facility] RDW SD 51.6(H) 35.7 - 48.[address] [facility] NRBC abs 0.00 0.00 - 0.01 K/cumm [facility] Blood 01/20/2025 10:2 3 AM CDT 01/20/2025 10:26 AM CDT us Jeffrey Osorio MD PhD LAB BLOOD ORDERABLES Final Res ult [facility] [address] [facility] [place] [address] * (ABNORMAL) Renal function panel (01/20/2025 10:23 AM CDT) Sodium 137 135 - 145 mmol/L Potassium, pl 5.0(H) 3.3 - 4.9 mmol/L [facility] Chloride 100 97 - 110 mmol/L [facility] CO2 28 22 - 32 mmol/L [facility] Anion gap 9 2 - 15 mmol/L [facility] BUN 42(H) 6 - 25 mg/dL [facility] Creatinine 4.95(H) 0.60 - 1.10 mg/dL [facility] Glucose 110 70 - 199 mg/dL [facility] Comment: Interpretive Data Fasting glucose >/= [...] Final Res ult Performing Organization Address [facility] de Phone Number [facility] [address] [facility] [employer] [place], [place] [phone] * POCT glucose (01/20/2025 9:51 AM CDT) Glucose, POC 111 70 - 199 mg/dL Comment: Interpretive Data Glucose is assumed to be non-fasting. Fasting Glucose reference ranges are: 0 - 150 years: 70 mg/dL - 99 mg/dL Current interpretive data was last revised on 2013. POC Device Number [id number] 3 CERNER [facility] Blood 01/20/2025 9:51 AM CDT 01/20/2025 9:51 AM CDT us Jeffrey Osorio MD PhD LAB POCT ORDERABLES - DEVICE F inal Result Performing Organization Address [facility] de Phone Number [facility] [address] [facility] [place] [address] * POCT glucose (01/20/2025 8:45 AM CDT) Glucose, POC 115 70 - 199 mg/dL Comment: Interpretive Data Glucose is assumed to be non-fasting. Fasting Glucose reference ranges are: 0 - 150 years: 70 mg/dL - 99 mg/dL Current interpretive data was last revised on 2013. POC Device Number [id number] 3 HERBER MARCANO Blood 01/20/2025 8:45 AM CDT 01/20/2025 8:45 AM CDT us Jeffrey Osorio MD PhD LAB POCT ORDERABLES - DEVICE F inal Result Performing Organization Address [facility] de Phone Number [facility] [address] [facility] [place] [address] * (ABNORMAL) POCT glucose (01/20/2025 8:02 AM CDT) Glucose, POC 67(L) 70 - 199 mg/dL Comment: Interpretive Data Glucose is assumed to be non-fasting. Fasting Glucose reference ranges are: 0 - 150 years: 70 mg/dL - 99 mg/dL Current interpretive data was last revised on 2013. POC Device Number [id number] 3 HERBER MARCANO Blood 01/20/2025 8:02 AM CDT 01/20/2025 8:02 AM CDT us Jeffrey Osorio MD PhD LAB POCT ORDERABLES - DEVICE F inal Result Performing Organization Address [facility] de Phone Number [facility] [address] [facility] [place] [address] * POCT glucose (01/20/2025 5:49 AM CDT) Glucose, POC 122 70 - 199 mg/dL Comment: Interpretive Data Glucose is assumed to be non-fasting. Fasting Glucose reference ranges are: 0 - 150 years: 70 mg/dL - 99 mg/dL Current interpretive data was last revised on 2013. POC Device Number [id number] 3 HERBER MARCANO Blood 01/20/2025 5:49 AM CDT 01/20/2025 5:49 AM CDT us Jeffrey Osorio MD PhD LAB POCT ORDERABLES - DEVICE F inal Result Performing Organization Address [facility] Phone Number [facility] [address] [place] [address] * POCT glucose (01/20/2025 1:57 AM CDT) Glucose, POC 127 70 - 199 mg/dL Comment: Interpretive Data Glucose is assumed to be non-fasting. Fasting Glucose reference ranges are: 0 - 150 years: 70 mg/dL - 99 mg/dL Current interpretive data was last revised on 2013. POC Device Number [id number] 4 HERBER MARCANO Blood 01/20/2025 1:57 AM CDT 01/20/2025 1:57 AM CDT us Jeffrey Osorio MD PhD LAB POCT ORDERABLES - DEVICE F inal Result Performing Organization Address [facility] Phone Number [facility] [address] [place] [address] * (ABNORMAL) POCT glucose (01/19/2025 10:01 PM CDT) Glucose, POC 243(H) 70 - 199 mg/dL Comment: Interpretive Data Glucose is assumed to be non-fasting. Fasting Glucose reference ranges are: 0 - 150 years: 70 mg/dL - 99 mg/dL Current interpretive data was last revised on 2013. POC Device Number [id number] HERBER MARCANO Glucose comment 1 RN/MD Notified HERBER MARCANO Blood 01/19/2025 10:0 1 PM CDT 01/19/2025 10:01 PM CDT us Jeffrey Osorio MD PhD LAB POCT ORDERABLES - DEVICE F inal Result Performing Organization Address [facility] de Phone Number HERBER JIMENEZCH [address] [facility]. [facility] [employer] [place], [place] [phone] * POCT glucose (01/19/2025 6:01 PM CDT) Glucose, POC 98 70 - 199 mg/dL Comment: Interpretive Data Glucose is assumed to be non-fasting. Fasting Glucose reference ranges are: 0 - 150 years: 70 mg/dL - 99 mg/dL Current interpretive data was last revised on 2013. POC Device Number [id number] 4 HEBRER MARCANO Blood 01/19/2025 6:01 PM CDT 01/19/2025 6:01 PM CDT Jeffrey Osorio MD PhD LAB POCT ORDERABLES - DEVICE F inal Result Performing Organization Address [facility] de Phone Number [facility] [address] [facility]. [facility] [place] [address] * POCT glucose (01/19/2025 4:18 PM CDT) Glucose, POC 75 70 - 199 mg/dL Comment: Interpretive Data Glucose is assumed to be non-fasting. Fasting Glucose reference ranges are: 0 - 150 years: 70 mg/dL - 99 mg/dL Current interpretive data was last revised on 2013. POC Device Number [id number] 4 HERBER MARCANO Blood 01/19/2025 4:18 PM CDT 01/19/2025 4:18 PM CDT us Jeffrey Osorio MD PhD LAB POCT ORDERABLES - DEVICE F inal Result Performing Organization Address [facility] de Phone Number HERBER [facility] [address] [facility]. [facility] [place] [address] * POCT glucose (01/19/2025 11:51 AM CDT) Glucose, POC 114 70 - 199 mg/dL Comment: Interpretive Data Glucose is assumed to be non-fasting. Fasting Glucose reference ranges are: 0 - 150 years: 70 mg/dL - 99 mg/dL Current interpretive data was last revised on 2013. POC Device Number [id number] 4 HERBER MARCANO Blood 01/19/2025 11:5 1 AM CDT 01/19/2025 11:51 AM CDT Jeffrey Osorio MD PhD LAB POCT ORDERABLES - DEVICE F inal Result Performing Organization Address [facility] Phone Number [facility] [address] [facility] [employer] [place], [place] [id number] * POCT glucose (01/19/2025 10:04 AM CDT) Glucose, POC 137 70 - 199 mg/dL Comment: Interpretive Data Glucose is assumed to be non-fasting. Fasting Glucose reference ranges are: 0 - 150 years: 70 mg/dL - 99 mg/dL Current interpretive data was last revised on 2013. POC Device Number [id number] 4 HERBER MARCANO Blood 01/19/2025 10:0 4 AM CDT 01/19/2025 10:04 AM CDT Jeffrey Osorio MD PhD LAB POCT ORDERABLES - DEVICE F inal Result Performing Organization Address [facility] Phone Number [facility] [address] [facility] [place] [address] * POCT glucose (01/19/2025 6:33 AM CDT) Glucose, POC 71 70 - 199 mg/dL Comment: Interpretive Data Glucose is assumed to be non-fasting. Fasting Glucose reference ranges are: 0 - 150 years: 70 mg/dL - 99 mg/dL Current interpretive data was last revised on 2013. POC Device Number [id number] 3 CERNER BARBARAWCH Blood 01/19/2025 6:33 AM CDT 01/19/2025 6:33 AM CDT us Jeffrey Osorio MD PhD LAB POCT ORDERABLES - DEVICE F inal Result Performing Organization Address [facility] Co de Phone Number HERBER REINACH [address] [facility] [place] [address] * POCT glucose (01/19/2025 2:13 AM CDT) Glucose, POC 104 70 - 199 mg/dL Comment: Interpretive Data Glucose is assumed to be non-fasting. Fasting Glucose reference ranges are: 0 - 150 years: 70 mg/dL - 99 mg/dL Current interpretive data was last revised on 2013. POC Device Number [id number] 3 BERLINNER BARBARAWCH Blood 01/19/2025 2:13 AM CDT 01/19/2025 2:13 AM CDT us Jeffrey Osorio MD PhD LAB POCT ORDERABLES - DEVICE F inal Result Performing Organization Address [facility] de Phone Number HERBER JIMENEZCH [address] [facility] [place] [address] * POCT glucose (01/18/2025 9:50 PM CDT) Glucose, POC 97 70 - 199 mg/dL Comment: Interpretive Data Glucose is assumed to be non-fasting. Fasting Glucose reference ranges are: 0 - 150 years: 70 mg/dL - 99 mg/dL Current interpretive data was last revised on 2013. POC Device Number [id number] 3 CERNER BARBARAWCH Blood 01/18/2025 9:50 PM CDT 01/18/2025 9:50 PM CDT us Jeffrey Osorio MD PhD LAB POCT ORDERABLES - DEVICE F inal Result Performing Organization Address [facility] de Phone Number HERBER JIMENEZCH [address] [facility] [place] [address] * POCT glucose (01/18/2025 5:59 PM CDT) Glucose, POC 171 70 - 199 mg/dL Comment: Interpretive Data Glucose is assumed to be non-fasting. Fasting Glucose reference ranges are: 0 - 150 years: 70 mg/dL - 99 mg/dL Current interpretive data was last revised on 2013. POC Device Number [id number] 1 CERNER BARBARAWCH Blood 01/18/2025 5:59 PM CDT 01/18/2025 5:59 PM CDT Jeffrey Osorio MD PhD LAB POCT ORDERABLES - DEVICE F inal Result Performing Organization Address [facility] de Phone Number [facility] [address] [facility] [place] [address] * POCT glucose (01/18/2025 12:15 PM CDT) Glucose, POC 143 70 - 199 mg/dL Comment: Interpretive Data Glucose is assumed to be non-fasting. Fasting Glucose reference ranges are: 0 - 150 years: 70 mg/dL - 99 mg/dL Current interpretive data was last revised on 2013. POC Device Number [id number] 3 HERBER MARCANO Blood 01/18/2025 12:1 5 PM CDT 01/18/2025 12:15 PM CDT Jeffrey Osorio MD PhD LAB POCT ORDERABLES - DEVICE F inal Result Performing Organization Address [facility] Co de Phone Number [facility] [address] [facility] [place] [address] * POCT glucose (01/18/2025 6:08 AM CDT) Glucose, POC 92 70 - 199 mg/dL Comment: Interpretive Data Glucose is assumed to be non-fasting. Fasting Glucose reference ranges are: 0 - 150 years: 70 mg/dL - 99 mg/dL Current interpretive data was last revised on 2013. POC Device Number [id number] 1 HERBER MARCANO Blood 01/18/2025 6:08 AM CDT 01/18/2025 6:08 AM CDT us Jeffrey Osorio MD PhD LAB POCT ORDERABLES - DEVICE F inal Result Performing Organization Address [facility] Phone Number [facility] [address] [facility] [place] [address] * POCT glucose (01/18/2025 2:09 AM CDT) Glucose, POC 107 70 - 199 mg/dL Comment: Interpretive Data Glucose is assumed to be non-fasting. Fasting Glucose reference ranges are: 0 - 150 years: 70 mg/dL - 99 mg/dL Current interpretive data was last revised on 2013. POC Device Number [id number] 4 HERBER MARCANO Blood 01/18/2025 2:09 AM CDT 01/18/2025 2:09 AM CDT us Jeffrey Osorio MD PhD LAB POCT ORDERABLES - DEVICE F inal Result Performing Organization Address [facility] Phone Number [facility] [address] [facility] [place] [address] * POCT glucose (01/17/2025 7:36 PM CDT) Glucose, POC 131 70 - 199 mg/dL Comment: Interpretive Data Glucose is assumed to be non-fasting. Fasting Glucose reference ranges are: 0 - 150 years: 70 mg/dL - 99 mg/dL Current interpretive data was last revised on 2013. POC Device Number [id number] 4 HERBER MARCANO Blood 01/17/2025 7:36 PM CDT 01/17/2025 7:36 PM CDT us Jeffrey Osorio MD PhD LAB POCT ORDERABLES - DEVICE F inal Result Performing Organization Address [facility] de Phone Number HERBER [facility] [address] [facility] [place] [address] * POCT glucose (01/17/2025 5:40 PM CDT) Glucose, POC 161 70 - 199 mg/dL Comment: Interpretive Data Glucose is assumed to be non-fasting. Fasting Glucose reference ranges are: 0 - 150 years: 70 mg/dL - 99 mg/dL Current interpretive data was last revised on 2013. POC Device Number [id number] 3 CERNER BARBARAWCH Blood 01/17/2025 5:40 PM CDT 01/17/2025 5:40 PM CDT us Jeffrey Osorio MD PhD LAB POCT ORDERABLES - DEVICE F inal Result Performing Organization Address [facility] de Phone Number HERBER [facility] [address] [facility] [place] [address] * POCT glucose (01/17/2025 12:02 PM CDT) Glucose, POC 149 70 - 199 mg/dL Comment: Interpretive Data Glucose is assumed to be non-fasting. Fasting Glucose reference ranges are: 0 - 150 years: 70 mg/dL - 99 mg/dL Current interpretive data was last revised on 2013. POC Device Number [id number] 4 HERBER JIMENEZWCH Blood 01/17/2025 12:0 2 PM CDT 01/17/2025 12:02 PM CDT us Jeffrey Osorio MD PhD LAB POCT ORDERABLES - DEVICE F inal Result Performing Organization Address [facility] de Phone Number HERBER [facility] [address] [place] [address] * POCT glucose (01/17/2025 8:19 AM CDT) Glucose, POC 198 70 - 199 mg/dL Comment: Interpretive Data Glucose is assumed to be non-fasting. Fasting Glucose reference ranges are: 0 - 150 years: 70 mg/dL - 99 mg/dL Current interpretive data was last revised on 2013. POC Device Number [id number] 1 HERBER MARCANO Blood 01/17/2025 8:19 AM CDT 01/17/2025 8:19 AM CDT Jeffrey Osorio MD PhD LAB POCT ORDERABLES - DEVICE F inal Result Performing Organization Address [facility] de Phone Number [facility] [address] [facility] [place] [address] * POCT glucose (01/17/2025 3:39 AM CDT) Glucose, POC 98 70 - 199 mg/dL Comment: Interpretive Data Glucose is assumed to be non-fasting. Fasting Glucose reference ranges are: 0 - 150 years: 70 mg/dL - 99 mg/dL Current interpretive data was last revised on 2013. POC Device Number [id number] 1 HERBER MARCANO Blood 01/17/2025 3:39 AM CDT 01/17/2025 3:39 AM CDT Jeffrey Osorio MD PhD LAB POCT ORDERABLES - DEVICE F inal Result Performing Organization Address [facility] de Phone Number [facility] [address] [facility] [employer] [place], [place] [address] * POCT glucose (01/17/2025 1:03 AM CDT) Glucose, POC 101 70 - 199 mg/dL Comment: Interpretive Data Glucose is assumed to be non-fasting. Fasting Glucose reference ranges are: 0 - 150 years: 70 mg/dL - 99 mg/dL Current interpretive data was last revised on 2013. POC Device Number [id number] 4 CERNER BARBARAWCH Blood 01/17/2025 1:03 AM CDT 01/17/2025 1:03 AM CDT Jeffrey Osorio MD PhD LAB POCT ORDERABLES - DEVICE F inal Result Performing Organization Address [facility] Co de Phone Number HERBER REINACH [address] [facility]. [facility] [place] [address] * POCT glucose (01/16/2025 11:58 PM CDT) Glucose, POC 110 70 - 199 mg/dL Comment: Interpretive Data Glucose is assumed to be non-fasting. Fasting Glucose reference ranges are: 0 - 150 years: 70 mg/dL - 99 mg/dL Current interpretive data was last revised on 2013. POC Device Number [id number] BERLINNER BARBARAWCH Blood 01/16/2025 11:5 8 PM CDT 01/16/2025 11:58 PM CDT Jeffrey Osorio MD PhD LAB POCT ORDERABLES - DEVICE F inal Result Performing Organization Address [facility] de Phone Number HERBER JIMENEZCH [address] [facility]. [facility] [place] [address] * POCT glucose (01/16/2025 11:40 PM CDT) Glucose, POC 98 70 - 199 mg/dL Comment: Interpretive Data Glucose is assumed to be non-fasting. Fasting Glucose reference ranges are: 0 - 150 years: 70 mg/dL - 99 mg/dL Current interpretive data was last revised on 2013. POC Device Number [id number] 4 CERNER BARBARAWCH Blood 01/16/2025 11:4 0 PM CDT 01/16/2025 11:40 PM CDT us Jeffrey Osorio MD PhD LAB POCT ORDERABLES - DEVICE F inal Result Performing Organization Address [facility] Co de Phone Number HERBER JIMENEZ [address] [facility] [place] [address] * POCT glucose (01/16/2025 11:23 PM CDT) Glucose, POC 93 70 - 199 mg/dL Comment: Interpretive Data Glucose is assumed to be non-fasting. Fasting Glucose reference ranges are: 0 - 150 years: 70 mg/dL - 99 mg/dL Current interpretive data was last revised on 2013. POC Device Number [id number] 4 HERBER REINA Blood 01/16/2025 11:2 3 PM CDT 01/16/2025 11:23 PM CDT us Jeffrey Osorio MD PhD LAB POCT ORDERABLES - DEVICE F inal Result Performing Organization Address [facility] Co de Phone Number [facility] [address] [facility]. [facility] [place] [address] * (ABNORMAL) POCT glucose (01/16/2025 11:04 PM CDT) Glucose, POC 57(L) 70 - 199 mg/dL Comment: Interpretive Data Glucose is assumed to be non-fasting. Fasting Glucose reference ranges are: 0 - 150 years: 70 mg/dL - 99 mg/dL Current interpretive data was last revised on 2013. POC Device Number [id number] 4 HERBER REINA Blood 01/16/2025 11:0 4 PM CDT 01/16/2025 11:04 PM CDT us Jeffrey Osorio MD PhD LAB POCT ORDERABLES - DEVICE F inal Result Performing Organization Address [facility]/ZIP Co de Phone Number [facility] [address] [place] [address] * (ABNORMAL) POCT glucose (01/16/2025 10:46 PM CDT) Glucose, POC 58(L) 70 - 199 mg/dL Comment: Interpretive Data Glucose is assumed to be non-fasting. Fasting Glucose reference ranges are: 0 - 150 years: 70 mg/dL - 99 mg/dL Current interpretive data was last revised on 2013. POC Device Number [id number] 4 HERBER MARCANO Blood 01/16/2025 10:4 6 PM CDT 01/16/2025 10:46 PM CDT Jeffrey Osorio MD PhD LAB POCT ORDERABLES - DEVICE F inal Result Performing Organization Address [facility] de Phone Number [facility] [address] [facility] [employer] [place], [place] [id number] * POCT glucose (01/16/2025 7:48 PM CDT) Glucose, POC 186 70 - 199 mg/dL Comment: Interpretive Data Glucose is assumed to be non-fasting. Fasting Glucose reference ranges are: 0 - 150 years: 70 mg/dL - 99 mg/dL Current interpretive data was last revised on 2013. POC Device Number [id number] 4 HERBER MARCANO Blood 01/16/2025 7:48 PM CDT 01/16/2025 7:48 PM CDT Jeffrey Osorio MD PhD LAB POCT ORDERABLES - DEVICE F inal Result Performing Organization Address [facility] Phone Number [facility] [address] [facility] [place] [address] * POCT glucose (01/16/2025 4:32 PM CDT) Glucose, POC 134 70 - 199 mg/dL Comment: Interpretive Data Glucose is assumed to be non-fasting. Fasting Glucose reference ranges are: 0 - 150 years: 70 mg/dL - 99 mg/dL Current interpretive data was last revised on 2013. POC Device Number [id number] 4 HERBER JIMENEZWCH Blood 01/16/2025 4:32 PM CDT 01/16/2025 4:32 PM CDT us Jeffrey Osorio MD PhD LAB POCT ORDERABLES - DEVICE F inal Result Performing Organization Address [facility] Co de Phone Number [facility] [address] [facility]. [facility] [place] [address] * POCT glucose (01/16/2025 12:40 PM CDT) Glucose, POC 195 70 - 199 mg/dL Comment: Interpretive Data Glucose is assumed to be non-fasting. Fasting Glucose reference ranges are: 0 - 150 years: 70 mg/dL - 99 mg/dL Current interpretive data was last revised on 2013. POC Device Number [id number] 4 HERBER [email or web address] Blood 01/16/2025 12:4 0 PM CDT 01/16/2025 12:40 PM CDT us Jeffrey Osorio MD PhD LAB POCT ORDERABLES - DEVICE F inal Result Performing Organization Address [facility] de Phone Number HERBER JIMENEZCH [address] [facility]. [facility] [place] [address] * (ABNORMAL) POCT glucose (01/16/2025 9:13 AM CDT) Glucose, POC 210(H) 70 - 199 mg/dL Comment: Interpretive Data Glucose is assumed to be non-fasting. Fasting Glucose reference ranges are: 0 - 150 years: 70 mg/dL - 99 mg/dL Current interpretive data was last revised on 2013. POC Device Number [id number] 4 HERBER JIMENEZWCH Blood 01/16/2025 9:13 AM CDT 01/16/2025 9:13 AM CDT us Jeffrey Osorio MD PhD LAB POCT ORDERABLES - DEVICE F inal Result Performing Organization Address [facility] Co de Phone Number [facility] [address] [facility]. [facility] [place] [address] * (ABNORMAL) eGFR (01/16/2025 6:49 AM CDT) Pathologist [facility] eGFR 7(L) >=60 mL/min/1. 73 m2 Comment: [...] LAB BLOOD ORDERABLES Marli lipscomb Result [facility] [address] [facility]. [place] [address] * (ABNORMAL) CBC without differential (01/16/2025 6:49 AM CDT) Pathologist [facility] WBC 5.02 3.80 - 9.90 K/cumm Hgb 10.1(L) 11.9 - 15.5 g/dL [facility] Hct 32.7(L) 35.6 - 45.5 % [facility] Plt 396 150 - 400 K/cumm [facility] MPV 10.3 9.1 - 12.[address] [facility] RBC 3.61(L) 3.90 - 5.20 M/cumm [facility] MCV 90.6 81.3 - 96.[address] [facility] MCH 28.0 27.1 - 33.[address] [facility] MCHC 30.9(L) 32.3 - 35.7 g/dL [facility] RDW CV 15.4(H) 11.1 - 14.9 % [facility] RDW SD 50.6(H) 35.7 - 48.[address] [facility] NRBC abs 0.00 0.00 - 0.01 K/cumm [facility] Blood 01/16/2025 6:49 AM CDT 01/16/2025 7:01 AM CDT Parag Xie MD LAB BLOOD ORDERABLES Marli lipscomb Result [facility] [address] [facility]. [place] [address] * (ABNORMAL) Basic metabolic panel (01/16/2025 6:49 AM CDT) Pathologist [facility] Sodium 137 135 - 145 mmol/L Potassium, pl 4.5 3.3 - 4.9 mmol/L [facility] Chloride 97 97 - 110 mmol/L [facility] CO2 26 22 - 32 mmol/L [facility] Anion gap 14 2 - 15 mmol/L [facility] BUN 68(H) 6 - 25 mg/dL [facility] Creatinine 7.90(H) 0.60 - 1.10 mg/dL [facility] Glucose 126 70 - 199 mg/dL [facility] Comment: Interpretive Data Fasting glucose >/= [...] Marli l Result Performing Organization Address [facility] de Phone Number [facility] [address] [facility] [place] [address] * POCT glucose (01/16/2025 3:16 AM CDT) Glucose, POC 112 70 - 199 mg/dL Comment: Interpretive Data Glucose is assumed to be non-fasting. Fasting Glucose reference ranges are: 0 - 150 years: 70 mg/dL - 99 mg/dL Current interpretive data was last revised on 2013. POC Device Number [id number] 1 HERBER MARCANO Blood 01/16/2025 3:16 AM CDT 01/16/2025 3:16 AM CDT Parag Xie MD LAB POCT ORDERABLES - DEV ICE Final Result Performing Organization Address [facility] de Phone Number [facility] [address] [facility] [place] [address] * POCT glucose (01/15/2025 11:41 PM CDT) Glucose, POC 72 70 - 199 mg/dL Comment: Interpretive Data Glucose is assumed to be non-fasting. Fasting Glucose reference ranges are: 0 - 150 years: 70 mg/dL - 99 mg/dL Current interpretive data was last revised on 2013. POC Device Number [id number] 1 HERBER MARCANO Blood 01/15/2025 11:4 1 PM CDT 01/15/2025 11:41 PM CDT Parag Xie MD LAB POCT ORDERABLES - DEV ICE Final Result Performing Organization Address [facility] de Phone Number HERBER JIMENEZCH [address] [facility]. [facility] [place] [address] * POCT glucose (01/15/2025 8:45 PM CDT) Glucose, POC 85 70 - 199 mg/dL Comment: Interpretive Data Glucose is assumed to be non-fasting. Fasting Glucose reference ranges are: 0 - 150 years: 70 mg/dL - 99 mg/dL Current interpretive data was last revised on 2013. POC Device Number [id number] 1 HERBER MARCANO Blood 01/15/2025 8:45 PM CDT 01/15/2025 8:45 PM CDT Parag Xie MD LAB POCT ORDERABLES - DEV ICE Final Result Performing Organization Address [facility] de Phone Number [facility] [address] [facility]. [facility] [place] [address] * POCT glucose (01/15/2025 7:01 PM CDT) Glucose, POC 121 70 - 199 mg/dL Comment: Interpretive Data Glucose is assumed to be non-fasting. Fasting Glucose reference ranges are: 0 - 150 years: 70 mg/dL - 99 mg/dL Current interpretive data was last revised on 2013. POC Device Number [id number] 1 HERBER MARCANO Blood 01/15/2025 7:01 PM CDT 01/15/2025 7:01 PM CDT Parag Xie MD LAB POCT ORDERABLES - DEV ICE Final Result Performing Organization Address [facility] de Phone Number HERBER [facility] [address] [facility]. [facility] [place] [address] * POCT hCG, urine (01/15/2025 4:15 PM [...] tendency for uric acid stone formation. Source: [facility] Current Interpretive Data was last [...] ORDERABLES Final Result Performing Organization Address [facility] de Phone Number HERBER MARCANO [address] [facility] [employer] [place], [place] [address] * (ABNORMAL) Urinalysis, microscopic only (01/15/2025 4:12 [...] S Final Result Performing Organization Address [facility] de Phone Number HERBER REINACH [address] [facility] [employer] [place], [place] [address] * (ABNORMAL) eGFR (01/15/2025 3:18 PM CDT) Pathologist [facility] eGFR 7(L) >=60 mL/min/1. 73 m2 Comment: [...] LAB BLOOD ORDERABLES Final Result HERBER MARCANO [address] [facility]. [place] [address] * Differential, auto (01/15/2025 3:18 PM CDT) Pathologist [facility] Neutrophil abs 2.90 1.50 - 6.50 K/cumm Imm gran abs 0.02 0.00 - 0.10 K/cumm CERNER BJWCH Lymphocyte abs 1.39 0.80 - 3.30 K/cumm CERNER BJWCH Monocyte abs 0.37 0.20 - 0.80 K/cumm CERNER BJWCH Eosinophil abs 0.07 0.00 - 0.50 K/cumm [facility] Basophil abs 0.01 0.00 - 0.10 K/cumm [facility] Neutrophil pct 60.9 % [facility] Comment: Interpretive Data Percent cell count [...] FRANCE LAB BLOOD ORDERABLES Final Result [facility] [address] [facility]. [place] [address] * (ABNORMAL) CBC with auto differential (01/15/2025 3:18 PM CDT) WBC 4.76 3.80 - 9.90 K/cumm Hgb 9.5(L) 11.9 - 15.5 g/dL HERBER MARCANO Hct 30.9(L) 35.6 - 45.5 % HERBER MARCANO Plt 372 150 - 400 K/cumm HERBER [facility] MPV 10.4 9.1 - 12.[address] [facility] RBC 3.40(L) 3.90 - 5.20 M/cumm [facility] MCV 90.9 81.3 - 96.4 fL [facility] MCH 27.9 27.1 - 33.3 pg [facility] MCHC 30.7(L) 32.3 - 35.7 g/dL [facility] RDW CV 15.5(H) 11.1 - 14.9 % [facility] RDW SD 50.7(H) 35.7 - 48.1 fL [facility] NRBC abs 0.00 0.00 - 0.01 K/cumm [facility] Blood Venous blood specimen / Unknown 01/15/2025 3:18 PM CDT 01/15/2025 3:21 PM CDT us Odilon Correa MD PhD LAB BLOOD ORDERABLE S Final Result [facility] [address] [facility]. [place] [address] * (ABNORMAL) Comprehensive metabolic panel (01/15/2025 3:18 PM CDT) Sodium 139 135 - 145 mmol/L Potassium, pl 4.8 3.3 - 4.9 mmol/L [facility] Chloride 98 97 - 110 mmol/L [facility] CO2 23 22 - 32 mmol/L [facility] Anion gap 18(H) 2 - 15 mmol/L [facility] BUN 67(H) 6 - 25 mg/dL [facility] Creatinine 7.31(H) 0.60 - 1.10 mg/dL [facility] Glucose 176 70 - 199 mg/dL [facility] Comment: Interpretive Data Fasting glucose >/= [...] S Final Result Performing Organization Address [facility] de Phone Number [facility] [employer] [facility] [address] [place] [address] * (ABNORMAL) POCT glucose (01/12/2025 10:49 AM CDT) [facility] Signature Glucose, POC 270(H) 70 - 199 mg/dL Comment: Interpretive Data Glucose is assumed to be non-fasting. Fasting Glucose reference ranges are: 0 - 150 years: 70 mg/dL - 99 mg/dL Current interpretive data was last revised on 2013. POC Device Number [id number] 4 CERNER BJWCH Blood 01/12/2025 10:4 9 AM CDT 01/12/2025 10:49 AM CDT Parag Xie MD LAB POCT ORDERABLES - DEV ICE Final Result Performing Organization Address [facility] Co de Phone Number [facility] [address] [place] [address] * (ABNORMAL) POCT glucose (01/12/2025 8:11 AM CDT) Glucose, POC 343(H) 70 - 199 mg/dL Comment: Interpretive Data Glucose is assumed to be non-fasting. Fasting Glucose reference ranges are: 0 - 150 years: 70 mg/dL - 99 mg/dL Current interpretive data was last revised on 2013. POC Device Number [id number] 1 HERBER MARCANO Blood 01/12/2025 8:11 AM CDT 01/12/2025 8:11 AM CDT Parag Xie MD LAB POCT ORDERABLES - DEV ICE Final Result Performing Organization Address [facility] Co de Phone Number [facility] [address] [place] [facility] [place] [address] * POCT glucose (01/11/2025 11:44 PM CDT) Glucose, POC 129 70 - 199 mg/dL Comment: Interpretive Data Glucose is assumed to be non-fasting. Fasting Glucose reference ranges are: 0 - 150 years: 70 mg/dL - 99 mg/dL Current interpretive data was last revised on 2013. POC Device Number [id number] 1 HERBER MARCANO Blood 01/11/2025 11:4 4 PM CDT 01/11/2025 11:44 PM CDT Parag Xie MD LAB POCT ORDERABLES - DEV ICE Final Result Performing Organization Address [facility] Co de Phone Number [facility] [address] [facility] CenterAg[facility] [employer]. [facility] [place] [address] * POCT glucose (01/11/2025 10:23 PM CDT) Glucose, POC 170 70 - 199 mg/dL Comment: Interpretive Data Glucose is assumed to be non-fasting. Fasting Glucose reference ranges are: 0 - 150 years: 70 mg/dL - 99 mg/dL Current interpretive data was last revised on 2013. POC Device Number [id number] 1 HERBER MARCANO Blood 01/11/2025 10:2 3 PM CDT 01/11/2025 10:23 PM CDT Parag Xie MD LAB POCT ORDERABLES - DEV ICE Final Result Performing Organization Address [facility] Phone Number [facility] [address] [facility] [place] [address] * (ABNORMAL) POCT glucose (01/11/2025 8:33 PM CDT) Glucose, POC 225(H) 70 - 199 mg/dL Comment: Interpretive Data Glucose is assumed to be non-fasting. Fasting Glucose reference ranges are: 0 - 150 years: 70 mg/dL - 99 mg/dL Current interpretive data was last revised on 2013. POC Device Number [id number] 4 HERBER MARCANO Blood 01/11/2025 8:33 PM CDT 01/11/2025 8:33 PM CDT Parag Xie MD LAB POCT ORDERABLES - DEV ICE Final Result Performing Organization Address [facility] Phone Number [facility] [address] [facility] [place] [address] * (ABNORMAL) POCT glucose (01/11/2025 7:01 PM CDT) Glucose, POC 203(H) 70 - 199 mg/dL Comment: Interpretive Data Glucose is assumed to be non-fasting. Fasting Glucose reference ranges are: 0 - 150 years: 70 mg/dL - 99 mg/dL Current interpretive data was last revised on 2013. POC Device Number [id number] 4 CERNER BARBARAWCH Blood 01/11/2025 7:01 PM CDT 01/11/2025 7:01 PM CDT Parag Xie MD LAB POCT ORDERABLES - DEV ICE Final Result Performing Organization Address [facility] de Phone Number [facility] [address] [facility]. [facility] [place] [address] * POCT glucose (01/11/2025 5:03 PM CDT) Glucose, POC 142 70 - 199 mg/dL Comment: Interpretive Data Glucose is assumed to be non-fasting. Fasting Glucose reference ranges are: 0 - 150 years: 70 mg/dL - 99 mg/dL Current interpretive data was last revised on 2013. POC Device Number [id number] 4 HERBER MARCANO Blood 01/11/2025 5:03 PM CDT 01/11/2025 5:03 PM CDT Parag Xie MD LAB POCT ORDERABLES - DEV ICE Final Result Performing Organization Address [facility] de Phone Number HERBER JIMENEZCH [address] [facility]. [facility] [place] [address] * POCT glucose (01/11/2025 12:02 PM CDT) Glucose, POC 87 70 - 199 mg/dL Comment: Interpretive Data Glucose is assumed to be non-fasting. Fasting Glucose reference ranges are: 0 - 150 years: 70 mg/dL - 99 mg/dL Current interpretive data was last revised on 2013. POC Device Number [id number] 9 HERBER MARCANO Blood 01/11/2025 12:0 2 PM CDT 01/11/2025 12:02 PM CDT Parag Xie MD LAB POCT ORDERABLES - DEV ICE Final Result Performing Organization Address [facility] de Phone Number HERBER JIMENEZCH [address] [facility]. [facility] [place] [address] * POCT glucose (01/11/2025 9:14 AM CDT) Glucose, POC 194 70 - 199 mg/dL Comment: Interpretive Data Glucose is assumed to be non-fasting. Fasting Glucose reference ranges are: 0 - 150 years: 70 mg/dL - 99 mg/dL Current interpretive data was last revised on 2013. POC Device Number [id number] HERBER REINACH Blood 01/11/2025 9:14 AM CDT 01/11/2025 9:14 AM CDT us Parag Xie MD LAB POCT ORDERABLES - DEV ICE Final Result HERBER JIMENEZWCH [address] [facility]. Department [place] [address] * (ABNORMAL) eGFR (01/11/2025 8:27 AM CDT) [...] Final Re sult Performing Organization Address [facility] Co de Phone Number HERBER JIMENEZCH [address] [place] [facility]. [facility] [employer] [place], [place] [phone] * (ABNORMAL) Phosphorus (01/11/2025 8:27 AM CDT) Phosphorus, pl 6.9(H) 2.3 - 4.5 mg/dL Blood 01/11/2025 8:27 AM CDT 01/11/2025 8:35 AM CDT Narrative HERBER MARCANO - 01/11/2025 8:53 AM CDT Please draw with dialysis Lisbet Franz MD LAB BLOOD ORDERABLES Final Re sult Performing Organization Address [facility] Co de Phone Number HERBER JIMENEZCH [address] [facility] [employer] Department [employer] [place], [place] [phone] * Magnesium (01/11/2025 8:27 AM CDT) Magnesium [...] Final Re sult Performing Organization Address [facility] Co de Phone Number HERBER JIMENEZWCH [phone] [facility]. [facility] [employer] [place], [place] [phone] * (ABNORMAL) Basic metabolic panel (01/11/2025 8:27 AM CDT) Sodium 139 135 - 145 mmol/L Potassium, pl 4.1 3.3 - 4.9 mmol/L [facility] Chloride 103 97 - 110 mmol/L [facility] CO2 23 22 - 32 mmol/L [facility] Anion gap 13 2 - 15 mmol/L [facility] BUN 45(H) 6 - 25 mg/dL [facility] Creatinine 6.97(H) 0.60 - 1.10 mg/dL [facility] Glucose 237(H) 70 - 199 mg/dL [facility] Comment: Interpretive Data Fasting glucose >/= [...] Calcium 7.1(L) 8.5 - 10.3 mg/dL [facility] Blood 01/11/2025 8:27 AM CDT 01/11/2025 8:35 AM CDT Narrative BERLINLULY JIMENEZCH - 01/11/2025 8:53 AM CDT Please draw with dialysis us Lisbet Franz MD LAB BLOOD ORDERABLES Final Re sult [facility] [address] [facility]. Department [place] [address] * (ABNORMAL) POCT glucose (01/11/2025 7:52 AM CDT) [facility] Signature Glucose, POC 249(H) 70 - 199 mg/dL Comment: Interpretive Data Glucose is assumed to be non-fasting. Fasting Glucose reference ranges are: 0 - 150 years: 70 mg/dL - 99 mg/dL Current interpretive data was last revised on 2013. POC Device Number [id number] [facility] Blood 01/11/2025 7:52 AM CDT 01/11/2025 7:52 AM CDT Parag Xie MD LAB POCT ORDERABLES - DEV ICE Final Result Performing Organization Address [facility] de Phone Number HERBER JIMENEZCH [address] [facility] [place] [address] * (ABNORMAL) POCT glucose (01/11/2025 4:35 AM CDT) Glucose, POC 267(H) 70 - 199 mg/dL Comment: Interpretive Data Glucose is assumed to be non-fasting. Fasting Glucose reference ranges are: 0 - 150 years: 70 mg/dL - 99 mg/dL Current interpretive data was last revised on 2013. POC Device Number [id number] HERBER JIMENEZWCH Glucose comment 1 RN/MD Notified HERBER MARCANO Blood 01/11/2025 4:35 AM CDT 01/11/2025 4:35 AM CDT Parag Xie MD LAB POCT ORDERABLES - DEV ICE Final Result Performing Organization Address [facility] de Phone Number HERBER JIMENEZCH [address] [place] [address] * (ABNORMAL) POCT glucose (01/10/2025 11:36 PM CDT) Glucose, POC 220(H) 70 - 199 mg/dL Comment: Interpretive Data Glucose is assumed to be non-fasting. Fasting Glucose reference ranges are: 0 - 150 years: 70 mg/dL - 99 mg/dL Current interpretive data was last revised on 2013. POC Device Number [id number] BERLINNER BARBARAWCH Glucose comment 1 RN/MD Notified HERBER MARCANO Blood 01/10/2025 11:3 6 PM CDT 01/10/2025 11:36 PM CDT Parag Xie MD LAB POCT ORDERABLES - DEV ICE Final Result Performing Organization Address [facility] de Phone Number HERBER REINACH [phone] [place] [facility]. [facility] [place] [address] * POCT glucose (01/10/2025 9:11 PM CDT) Glucose, POC 142 70 - 199 mg/dL Comment: Interpretive Data Glucose is assumed to be non-fasting. Fasting Glucose reference ranges are: 0 - 150 years: 70 mg/dL - 99 mg/dL Current interpretive data was last revised on 2013. POC Device Number [id number] HERBER MARCANO Blood 01/10/2025 9:11 PM CDT 01/10/2025 9:11 PM CDT Parag Xie MD LAB POCT ORDERABLES - DEV ICE Final Result Performing Organization Address [facility] de Phone Number HERBER JIMENEZWCH [address] [facility]. [facility] [place] [address] * POCT glucose (01/10/2025 7:44 PM CDT) Glucose, POC 159 70 - 199 mg/dL Comment: Interpretive Data Glucose is assumed to be non-fasting. Fasting Glucose reference ranges are: 0 - 150 years: 70 mg/dL - 99 mg/dL Current interpretive data was last revised on 2013. POC Device Number [id number] 9 HERBER MARCANO Blood 01/10/2025 7:44 PM CDT 01/10/2025 7:44 PM CDT Parag Xie MD LAB POCT ORDERABLES - DEV ICE Final Result Performing Organization Address [facility] de Phone Number HERBER JIMENEZWCH [address] [facility]. [facility] [place] [address] * (ABNORMAL) POCT glucose (01/10/2025 5:29 PM CDT) Glucose, POC 230(H) 70 - 199 mg/dL Comment: Interpretive Data Glucose is assumed to be non-fasting. Fasting Glucose reference ranges are: 0 - 150 years: 70 mg/dL - 99 mg/dL Current interpretive data was last revised on 2013. POC Device Number [id number] 9 HERBER MARCANO Blood 01/10/2025 5:29 PM CDT 01/10/2025 5:29 PM CDT Parag Xie MD LAB POCT ORDERABLES - DEV ICE Final Result Performing Organization Address [facility] de Phone Number [facility] [address] [facility] [employer] [place], [place] [phone] * (ABNORMAL) POCT glucose (01/10/2025 1:56 PM CDT) Glucose, POC 233(H) 70 - 199 mg/dL Comment: Interpretive Data Glucose is assumed to be non-fasting. Fasting Glucose reference ranges are: 0 - 150 years: 70 mg/dL - 99 mg/dL Current interpretive data was last revised on 2013. POC Device Number [id number] 9 HERBER MARCANO Blood 01/10/2025 1:56 PM CDT 01/10/2025 1:56 PM CDT Parag Xie MD LAB POCT ORDERABLES - DEV ICE Final Result Performing Organization Address [facility] de Phone Number [facility] [address] [facility] [place] [address] * (ABNORMAL) POCT glucose (01/10/2025 12:01 PM CDT) Glucose, POC 331(H) 70 - 199 mg/dL Comment: Interpretive Data Glucose is assumed to be non-fasting. Fasting Glucose reference ranges are: 0 - 150 years: 70 mg/dL - 99 mg/dL Current interpretive data was last revised on 2013. POC Device Number [id number] CERNER BARBARAWCH Blood 01/10/2025 12:0 1 PM CDT 01/10/2025 12:01 PM CDT us Parag Xie MD LAB POCT ORDERABLES - DEV ICE Final Result Performing Organization Address [facility] Phone Number HERBER REINACH [phone] [facility] [place] [address] * (ABNORMAL) POCT glucose (01/10/2025 10:22 AM CDT) Glucose, POC 335(H) 70 - 199 mg/dL Comment: Interpretive Data Glucose is assumed to be non-fasting. Fasting Glucose reference ranges are: 0 - 150 years: 70 mg/dL - 99 mg/dL Current interpretive data was last revised on 2013. POC Device Number [id number] HERBER MARCANO Glucose comment 1 RN/MD Notified HERBER MARCANO Blood 01/10/2025 10:2 2 AM CDT 01/10/2025 10:22 AM CDT us Parag Xie MD LAB POCT ORDERABLES - DEV ICE Final Result Performing Organization Address [facility] Phone Number HERBER JIMENEZWCH [phone] [facility] [place] [address] * POCT glucose (01/10/2025 7:57 AM CDT) Glucose, POC 185 70 - 199 mg/dL Comment: Interpretive Data Glucose is assumed to be non-fasting. Fasting Glucose reference ranges are: 0 - 150 years: 70 mg/dL - 99 mg/dL Current interpretive data was last revised on 2013. POC Device Number [id number] 4 HERBER MARCANO Blood 01/10/2025 7:57 AM CDT 01/10/2025 7:57 AM CDT us Parag Xie MD LAB POCT ORDERABLES - DEV ICE Final Result Performing Organization Address [facility]/State/ZIP Co de Phone Number HERBER BJWCH [address] [employer] Department [place] [address] * POCT glucose (01/10/2025 4:07 AM CDT) Glucose, POC 114 70 - 199 mg/dL Comment: Interpretive Data Glucose is assumed to be non-fasting. Fasting Glucose reference ranges are: 0 - 150 years: 70 mg/dL - 99 mg/dL Current interpretive data was last revised on 2013. POC Device Number [id number] HERBER BJWCH Blood 01/10/2025 4:07 AM CDT 01/10/2025 4:07 AM CDT Parag Xie MD LAB POCT ORDERABLES - DEV ICE Final Result HERBER BJWCH [address] [employer] Department [place] [address] * (ABNORMAL) eGFR (01/10/2025 4:02 AM CDT) Pathologist [facility] eGFR 11(L) >=60 mL/min/1. 73 m2 Comment: [...] BLOOD ORDERABLES Marli lipscomb Result HERBER MARCANO [address] [employer] [place], [place] [phone] * (ABNORMAL) CBC without differential (01/10/2025 4:02 AM CDT) WBC 4.58 3.80 - 9.90 K/cumm Hgb 9.0(L) 11.9 - 15.5 g/dL [facility] Hct 28.2(L) 35.6 - 45.5 % [facility] Plt 274 150 - 400 K/cumm [facility] MPV 10.6 9.1 - 12.3 fL [facility] RBC 3.18(L) 3.90 - 5.20 M/cumm [facility] MCV 88.7 81.3 - 96.4 fL [facility] MCH 28.3 27.1 - 33.3 pg [facility] MCHC 31.9(L) 32.3 - 35.7 g/dL [facility] BJWCH RDW CV 15.2(H) 11.1 - 14.9 % [facility] RDW SD 48.3(H) 35.7 - 48.1 fL [facility] NRBC abs 0.00 0.00 - 0.01 K/cumm [facility] BJW Blood 01/10/2025 4:02 AM CDT 01/10/2025 4:20 AM CDT Parag Xie MD LAB BLOOD ORDERABLES Marli lipscomb Result HERBER REINACH [address] [facility] [place] [address] * (ABNORMAL) Basic metabolic panel (01/10/2025 4:02 AM CDT) Pathologist [facility] Sodium 136 135 - 145 mmol/L Potassium, pl 3.5 3.3 - 4.9 mmol/L [facility] Chloride 98 97 - 110 mmol/L [facility] CO2 24 22 - 32 mmol/L [facility] Anion gap 14 2 - 15 mmol/L [facility] BUN 22 6 - 25 mg/dL [facility] Creatinine 5.00(H) 0.60 - 1.10 mg/dL [facility] Glucose 109 70 - 199 mg/dL [facility] Comment: Interpretive Data Fasting glucose >/= [...] Calcium 7.7(L) 8.5 - 10.3 mg/dL [facility] Blood 01/10/2025 4:02 AM CDT 01/10/2025 4:20 AM CDT Parag Xie MD LAB BLOOD ORDERABLES Marli l Result [facility] [address] [employer] Department [place] [address] * POCT glucose (01/09/2025 11:05 PM CDT) [facility] Signature Glucose, POC 159 70 - 199 mg/dL Comment: Interpretive Data Glucose is assumed to be non-fasting. Fasting Glucose reference ranges are: 0 - 150 years: 70 mg/dL - 99 mg/dL Current interpretive data was last revised on 2013. POC Device Number [id number] CERLULY JIMENEZW Blood 01/09/2025 11:0 5 PM CDT 01/09/2025 11:05 PM CDT Parag Xie MD LAB POCT ORDERABLES - DEV ICE Final Result Performing Organization Address [facility] de Phone Number HERBER REINACH [address] [facility]. [facility] [place] [address] * (ABNORMAL) POCT glucose (01/09/2025 10:22 PM CDT) Glucose, POC 60(L) 70 - 199 mg/dL Comment: Interpretive Data Glucose is assumed to be non-fasting. Fasting Glucose reference ranges are: 0 - 150 years: 70 mg/dL - 99 mg/dL Current interpretive data was last revised on 2013. POC Device Number [id number] HERBER MARCANO Blood 01/09/2025 10:2 2 PM CDT 01/09/2025 10:22 PM CDT Parag Xie MD LAB POCT ORDERABLES - DEV ICE Final Result Performing Organization Address [facility] de Phone Number HERBER JIMENEZWCH [address] [facility]. [facility] [place] [address] * POCT glucose (01/09/2025 8:46 PM CDT) Glucose, POC 80 70 - 199 mg/dL Comment: Interpretive Data Glucose is assumed to be non-fasting. Fasting Glucose reference ranges are: 0 - 150 years: 70 mg/dL - 99 mg/dL Current interpretive data was last revised on 2013. POC Device Number [id number] HERBER MARCANO Blood 01/09/2025 8:46 PM CDT 01/09/2025 8:46 PM CDT Parag Xie MD LAB POCT ORDERABLES - DEV ICE Final Result Performing Organization Address [facility] Co de Phone Number HERBER BJWCH [address] [facility]. [facility] [place] [address] * POCT glucose (01/09/2025 6:06 PM CDT) Glucose, POC 193 70 - 199 mg/dL Comment: Interpretive Data Glucose is assumed to be non-fasting. Fasting Glucose reference ranges are: 0 - 150 years: 70 mg/dL - 99 mg/dL Current interpretive data was last revised on 2013. POC Device Number [id number] HERBER MARCANO Blood 01/09/2025 6:06 PM CDT 01/09/2025 6:06 PM CDT Parag Xie MD LAB POCT ORDERABLES - DEV ICE Final Result Performing Organization Address [facility] de Phone Number HERBER COX MONETTCH [address] [facility] [place] [address] * (ABNORMAL) POCT glucose (01/09/2025 5:41 PM CDT) Glucose, POC 64(L) 70 - 199 mg/dL Comment: Interpretive Data Glucose is assumed to be non-fasting. Fasting Glucose reference ranges are: 0 - 150 years: 70 mg/dL - 99 mg/dL Current interpretive data was last revised on 2013. POC Device Number [id number] HERBER MARCANO Blood 01/09/2025 5:41 PM CDT 01/09/2025 5:41 PM CDT Parag Xie MD LAB POCT ORDERABLES - DEV ICE Final Result Performing Organization Address [facility] de Phone Number [facility] B[facility] [address] [facility]. [facility] [place] [address] * POCT glucose (01/09/2025 5:05 PM CDT) Glucose, POC 100 70 - 199 mg/dL Comment: Interpretive Data Glucose is assumed to be non-fasting. Fasting Glucose reference ranges are: 0 - 150 years: 70 mg/dL - 99 mg/dL Current interpretive data was last revised on 2013. POC Device Number [id number] HERBER BJWCH Blood 01/09/2025 5:05 PM CDT 01/09/2025 5:05 PM CDT Parag Xie MD LAB POCT ORDERABLES - DEV ICE Final Result Performing Organization Address [facility] Co de Phone Number HERBER JIMENEZWCH [address] [place] [facility]. [place] [address] * (ABNORMAL) POCT glucose (01/09/2025 2:05 PM CDT) Pathologist [facility] Glucose, POC 228(H) 70 - 199 mg/dL Comment: Interpretive Data Glucose is assumed to be non-fasting. Fasting Glucose reference ranges are: 0 - 150 years: 70 mg/dL - 99 mg/dL Current interpretive data was last revised on 2013. POC Device Number [id number] 4 HERBER JIMENEZWCH Blood 01/09/2025 2:05 PM CDT 01/09/2025 2:05 PM CDT Parag Xie MD LAB POCT ORDERABLES - DEV ICE Final Result Performing Organization Address [facility] de Phone Number HERBER BJWCH [address] [employer]. Department [place] [address] * Hepatitis B Surface Antigen Blood (01/09/2025 1:16 PM CDT) [facility] HepBsAg Nonreactive Nonreactive Comment:Testing performed by : [facility], [facility] [facility], [place]., [address] Blood 01/09/2025 1:16 PM CDT 01/09/2025 2:13 PM CDT Russell Weller MD LAB MICROBIOLOGY - GENER AL ORDERABLES Final Result Performing Organization Address [facility] Co de Phone Number HERBER BJWCH [address] [employer]. [place] [address] * (ABNORMAL) POCT glucose (01/09/2025 12:44 PM CDT) Glucose, POC 298(H) 70 - 199 mg/dL Comment: Interpretive Data Glucose is assumed to be non-fasting. Fasting Glucose reference ranges are: 0 - 150 years: 70 mg/dL - 99 mg/dL Current interpretive data was last revised on 2013. POC Device Number [id number] HERBER REINA Blood 01/09/2025 12:4 4 PM CDT 01/09/2025 12:44 PM CDT Parag Xie MD LAB POCT ORDERABLES - DEV ICE Final Result Performing Organization Address [facility] de Phone Number [facility] [address] [facility]. [facility] [place] [address] * (ABNORMAL) POCT glucose (01/09/2025 12:00 PM CDT) Glucose, POC 342(H) 70 - 199 mg/dL Comment: Interpretive Data Glucose is assumed to be non-fasting. Fasting Glucose reference ranges are: 0 - 150 years: 70 mg/dL - 99 mg/dL Current interpretive data was last revised on 2013. POC Device Number [id number] [facility] Blood 01/09/2025 12:0 0 PM CDT 01/09/2025 12:00 PM CDT Parag Xie MD LAB POCT ORDERABLES - DEV ICE Final Result Performing Organization Address [facility] de Phone Number [facility] [address] [facility] [place] [address] * (ABNORMAL) POCT glucose (01/09/2025 10:55 AM CDT) Glucose, POC 358(H) 70 - 199 mg/dL Comment: Interpretive Data Glucose is assumed to be non-fasting. Fasting Glucose reference ranges are: 0 - 150 years: 70 mg/dL - 99 mg/dL Current interpretive data was last revised on 2013. POC Device Number [id number] HERBER JIMENEZWCH Blood 01/09/2025 10:5 5 AM CDT 01/09/2025 10:55 AM CDT us Parag Xie MD LAB POCT ORDERABLES - DEV ICE Final Result HERBER REINACH [address] [facility]. Department [place] [address] * IR Gastrojejunostomy Tube Placement (01/09/2025 10:32 AM CDT) Anatomical Region Laterality Modality Body N/A X-Ray Angiograph y 01/09/2025 4:17 PM CDT Impressions 01/09/2025 4:17 PM CDT Successful placement of a 18 [place] Arlene single lumen gastrojejunostomy catheter. PLAN: The [...] was obtained. Prior to beginning the procedure, [place] Protocol was performed to confirm the patient's [...] was obtained. Prior to beginning the procedure, [place] Protocol was performed to confirm the patient's [...] jejunum. IMPRESSION: Successful placement of a 18 [place] Arlene single lumen gastrojejunostomy catheter. PLAN: The [...] last revised on 2013. POC Device Number [id number] HERBER BJWCH Blood 01/09/2025 9:02 AM CDT 01/09/2025 9:02 AM CDT us Parag Xie MD LAB POCT ORDERABLES - DEV ICE Final Result HERBER JIMENEZWCH [address] [facility]. [facility] [place] [address] * POCT hCG, urine (01/09/2025 8:59 AM [...] last revised on 2013. POC Device Number [id number] HERBER MARCANO Blood 01/09/2025 7:09 AM CDT 01/09/2025 7:09 AM CDT Parag Xie MD LAB POCT ORDERABLES - DEV ICE Final Result Performing Organization Address [facility] de Phone Number [facility] [address] [facility] [employer] [place], [place] [address] * POCT glucose (01/09/2025 4:11 AM CDT) Glucose, POC 130 70 - 199 mg/dL Comment: Interpretive Data Glucose is assumed to be non-fasting. Fasting Glucose reference ranges are: 0 - 150 years: 70 mg/dL - 99 mg/dL Current interpretive data was last revised on 2013. POC Device Number [id number] HERBER MARCANO Blood 01/09/2025 4:11 AM CDT 01/09/2025 4:11 AM CDT Yessenia Dominguez MD LAB POCT ORDERABLES - DEVIC E Final Result Performing Organization Address [facility] de Phone Number HERBER JIMENEZWCH [address] [facility] [employer] [place], [place] [id number] * Beta-hydroxybutyrate (01/09/2025 12:50 AM CDT) Beta-Hydroxybut yrate <0.5 0.0 - 0.5 mmol/L Blood 01/09/2025 12:5 0 AM CDT 01/09/2025 12:57 AM CDT Yessenia Dominguez MD LAB BLOOD ORDERABLES Edited Result - Final Performing Organization Address [facility] de Phone Number HERBER JIMENEZCH [address] [facility] [employer] [place], [place] [phone] * (ABNORMAL) eGFR (01/09/2025 12:49 AM CDT) [...] MD LAB BLOOD ORDERABLES Final Result [facility] [address] [facility]. [place] [address] * Blood gas, venous (01/09/2025 12:49 AM CDT) pH, Venous 7.34 7.32 - 7.43 PCO2, Venous 42 40 - [address] [facility] PO2, Venous 60 mmHg [facility] W Comment: Interpretive Data No reference range established. Current interpretive data was last revised 2019. HCO3 Venous, Calculated 23 20 - 30 mmol/L HERBER [facility] BE, venous -3 mmol/L HERBER W Comment: Interpretive Data No Reference Range Established Current Interpretive Data was last revised on 2017. Blood 01/09/2025 12:4 9 AM CDT 01/09/2025 12:57 AM CDT Yessenia Dominguez MD LAB BLOOD ORDERABLES Final Result HERBER MARCANO [address] [address] [facility]. [place] [address] * (ABNORMAL) Basic metabolic panel (01/09/2025 12:49 AM CDT) Pathologist [facility] Sodium 138 135 - 145 mmol/L Potassium, pl 4.4 3.3 - 4.9 mmol/L CERNER BJWCH Chloride 101 97 - 110 mmol/L CERNER [facility] CO2 22 22 - 32 mmol/L CERNER [facility] Anion gap 15 2 - 15 mmol/L CERNER [facility] BUN 55(H) 6 - 25 mg/dL CERNER [facility] Creatinine 9.20(H) 0.60 - 1.10 mg/dL CERNER [facility] Glucose 292(H) 70 - 199 mg/dL [facility] Comment: Interpretive Data Fasting [...] Calcium 7.2(L) 8.5 - 10.3 mg/dL [facility] Blood 01/09/2025 12:4 9 AM CDT 01/09/2025 12:57 AM CDT Yessenia Dominguez MD LAB BLOOD ORDERABLES Final Result Performing Organization Address City/[facility]/ZIP Co de Phone Number HERBER MARCANO [address] [employer] Department [place] [address] * (ABNORMAL) POCT glucose (01/09/2025 12:16 AM CDT) Glucose, POC 322(H) 70 - 199 mg/dL Comment: Interpretive Data Glucose is assumed to be non-fasting. Fasting Glucose reference ranges are: 0 - 150 years: 70 mg/dL - 99 mg/dL Current interpretive data was last revised on 2013. POC Device Number [id number] HERBER MARCANO Blood 01/09/2025 12:1 6 AM CDT 01/09/2025 12:16 AM CDT Yessenia Dominguez MD LAB POCT ORDERABLES - DEVIC E Final Result Performing Organization Address [facility] de Phone Number [facility] [address] [employer] [place] [address] * (ABNORMAL) POCT glucose (01/08/2025 10:21 PM CDT) Glucose, POC 399(H) 70 - 199 mg/dL Comment: Interpretive Data Glucose is assumed to be non-fasting. Fasting Glucose reference ranges are: 0 - 150 years: 70 mg/dL - 99 mg/dL Current interpretive data was last revised on 2013. POC Device Number [id number] HERBER REINA Blood 01/08/2025 10:2 1 PM CDT 01/08/2025 10:21 PM CDT Yessenia Dominguez MD LAB POCT ORDERABLES - DEVIC E Final Result Performing Organization Address [facility] Co de Phone Number [facility] [address] [facility] [place] [address] * XR Chest 1 View [...] LAB BLOOD ORDERABLES F inal Result [facility] [id number] [facility]. Department [place] [address] * Differential, auto (01/08/2025 8:57 PM CDT) [...] on 2017. Eosinophil pct 3.6 % [facility] Comment: Interpretive Data Percent cell count reference ranges are not reported, since discordance with absolute values may lead to misinterpretation of CBC data. Current Interpretive Data was last revised on 2017. Basophil pct 0.2 % [facility] Comment: Interpretive Data Percent cell count reference ranges are not reported, since discordance with absolute values may lead to misinterpretation of CBC data. Current Interpretive Data was last revised on 2017. Blood 01/08/2025 8:57 PM CDT 01/08/2025 9:02 PM CDT Yareli Mitchell MD LAB BLOOD ORDERABLES F inal Result Performing Organization Address [facility] Co de Phone Number [facility] [address] [facility] Center[facility] Department [place] [address] * Beta-hydroxybutyrate (01/08/2025 8:57 PM CDT) Pathologist [facility] Beta-Hydroxybut yrate <0.5 0.0 - 0.5 mmol/L Blood 01/08/2025 8:57 PM CDT 01/08/2025 9:02 PM CDT Yessenia Dominguez MD LAB BLOOD ORDERABLES Final Result Performing Organization Address City/[facility] Co de Phone Number [facility] [address] [place] [facility] [place] [address] * (ABNORMAL) CBC with auto differential (01/08/2025 8:57 PM CDT) Pathologist [facility] WBC 6.16 3.80 - 9.90 K/cumm Hgb 9.2(L) 11.9 - 15.5 g/dL [facility] Hct 29.0(L) 35.6 - 45.5 % [facility] Plt 320 150 - 400 K/cumm [facility] MPV 10.6 9.1 - 12.3 fL [facility] RBC 3.25(L) 3.90 - 5.20 M/cumm [facility] MCV 89.2 81.3 - 96.4 fL [facility] MCH 28.3 27.1 - 33.3 pg [facility] MCHC 31.7(L) 32.3 - 35.7 g/dL [facility] RDW CV 14.9 11.1 - 14.9 % [facility] RDW SD 48.1 35.7 - 48.1 fL [facility] NRBC abs 0.00 0.00 - 0.01 K/cumm [facility] Blood 01/08/2025 8:57 PM CDT 01/08/2025 9:02 PM CDT Yareli Mitchell MD LAB BLOOD ORDERABLES F inal Result Performing Organization Address [facility] de Phone Number [facility] [address] [employer] [place], [place] [id number] * Protime-INR (01/08/2025 8:57 PM CDT) [facility] PT 11.7 10.2 - 13.5 sec INR 1.04 0.90 - 1.20 [facility] Comment: Interpretive data Oral anticoagulant therapeutic ranges: Venous thromboembolism prophylaxis or treatment: 2.0-3.0 CARDIOLOGY Standard range: 2.0-3.0 High-intensity range: 2.5-3.5 Refer to indication-specific guidelines for appropriate target ranges for prosthetic heart valve replacement. Current interpretive data was last revised on 2019. Blood 01/08/2025 8:57 PM CDT 01/08/2025 9:02 PM CDT Yareli Mitchell MD LAB BLOOD ORDERABLES F inal Result Performing Organization Address [facility] Co de Phone Number [facility] [address] [place] [address] * (ABNORMAL) Renal function panel (01/08/2025 8:57 PM CDT) [facility] Sodium 136 135 - 145 [...] BLOOD ORDERABLES F inal Result [facility] [address] [facility]. [place] [address] * (ABNORMAL) POCT glucose (01/08/2025 7:44 PM CDT) Glucose, POC 320(H) 70 - 199 mg/dL Comment: Interpretive Data Glucose is assumed to be non-fasting. Fasting Glucose reference ranges are: 0 - 150 years: 70 mg/dL - 99 mg/dL Current interpretive data was last revised on 2013. POC Device Number [id number] [facility] MARCANO Blood 01/08/2025 7:44 PM CDT 01/08/2025 7:44 PM CDT Yessenia Dominguez MD LAB POCT ORDERABLES - DEVIC E Final Result Performing Organization Address [facility] Co de Phone Number [facility] [address] [facility] [place] [address] * (ABNORMAL) POCT glucose (01/08/2025 6:43 PM CDT) Glucose, POC 320(H) 70 - 199 mg/dL Comment: Interpretive Data Glucose is assumed to be non-fasting. Fasting Glucose reference ranges are: 0 - 150 years: 70 mg/dL - 99 mg/dL Current interpretive data was last revised on 2013. POC Device Number [id number] HER[facility] MARCANO Blood 01/08/2025 6:43 PM CDT 01/08/2025 6:43 PM CDT Viraj Olivo MD LAB POCT ORDERABLES - DEVICE Fin al Result Performing Organization Address [facility] Co de Phone Number [facility] [address] [facility] [employer] [place], [place] [id number] * XR Foot Right 3 or More [...] severe secondary right ankle osteoarthritis. Small effusion. Kudz-eq-tjbchkkb pes planus with old healed midfoot fractures, polyarticular midfoot osteoarthritis and fragmentation. Soft tissue swelling is present. Arterial atherosclerosis is noted. Mild 1st metatarsophalangeal joint osteoarthritis. IMPRESSION: 1. Old healed distal right tibia and fibular fractures with hindfoot valgus and moderate to severe secondary right ankle osteoarthritis. 2. Yfun-ov-sbgixdbu right pes planus with old healed midfoot fractures, polyarticular midfoot osteoarthritis and fragmentation. THIS IS AN ELECTRONICALLY VERIFIED FINAL REPORT 01/09/2025 4:28 PM - Electronically signed by Andrei Nguyen M.D. T: Report ID: [id number] Reading Location: [id number] Procedure Note Andrei Nguyen MD - 01/09/2025 [...] severe secondary right ankle osteoarthritis. Small effusion. Aiab-fp-zflqiunl pes planus with oldhealed midfoot fractures, polyarticular midfoot osteoarthritis and fragmentation. Soft tissue swelling is present. Arterial atherosclerosis is noted. Neuw0en metatarsophalangeal joint osteoarthritis. IMPRESSION: 1. Old healed distal right tibia and fibular fractures with hindfootvalgus and moderate to severe secondary right ankle osteoarthritis. 2. Nynz-ud-qhyhwhlg right pes planus with old healed midfoot fractures, polyarticular midfoot osteoarthritis and fragmentation. THIS IS AN ELECTRONICALLY VERIFIED FINAL REPORT 01/09/2025 4:28 PM - Electronically signed by Andrei Nguyen M.D. T: Report ID: [id number] Reading Location: [id number] Raul Clark DO IMG XR PROCEDURES Final [...] severe secondary right ankle osteoarthritis. Small effusion. Zucg-ru-xstablla pes planus with old healed midfoot fractures, polyarticular midfoot osteoarthritis and fragmentation. Soft tissue swelling is present. Arterial atherosclerosis is noted. Mild 1st metatarsophalangeal joint osteoarthritis. IMPRESSION: 1. Old healed distal right tibia and fibular fractures with hindfoot valgus and moderate to severe secondary right ankle osteoarthritis. 2. Tlnu-rs-kijvthkb right pes planus with old healed midfoot fractures, polyarticular midfoot osteoarthritis and fragmentation. THIS IS AN ELECTRONICALLY VERIFIED FINAL REPORT 01/09/2025 4:28 PM - Electronically signed by Andrei Nguyen M.D. T: Report ID: [id number] Reading Location: [id number] Procedure Note Andrei Nguyen MD - 01/09/2025 [...] severe secondary right ankle osteoarthritis. Small effusion. Afop-gr-pacdxwon pes planus with oldhealed midfoot fractures, polyarticular midfoot osteoarthritis and fragmentation. Soft tissue swelling is present. Arterial atherosclerosis is noted. Retf6nn metatarsophalangeal joint osteoarthritis. IMPRESSION: 1. Old healed distal right tibia and fibular fractures with hindfootvalgus and moderate to severe secondary right ankle osteoarthritis. 2. Svsu-hg-fbzqnwgl right pes planus with old healed midfoot fractures, polyarticular midfoot osteoarthritis and fragmentation. THIS IS AN ELECTRONICALLY VERIFIED FINAL REPORT 01/09/2025 4:28 PM - Electronically signed by Andrei Nguyen M.D. T: Report ID: [id number] Reading Location: [place] [address] us Raul Clark DO IMG XR PROCEDURES Final Result * POCT glucose (12/26/2024 9:47 AM CDT) [facility] Signature Glucose, POC 197 70 - 199 mg/dL Blood 12/26/2024 9:47 AM CDT 12/26/2024 9:47 AM CDT us Young Vasquez MD LAB POCT ORDERABLES - DEVICE Final Result Performing Organization Address City/State/[facility] Co de Phone Number [facility] Department [place] [address] * Colonoscopy (12/26/2024 9:16 AM CDT) Anatomical [...] was passed under direct vision.The [id number] endoscope was introduced through the anus and [...] Supervising provider: Dylan Frias MD Placed by: BRAID FOLDER: Federico Beltran CRNA Emergent airway documentation: Risks [...] Biopsy) 12/26/2024 9:25 AM CDT Narrative PATHOLOGY [facility] - 12/27/2024 6:13 PM CDT EPIC results best viewed via link to PDF [facility] Gud[facility] [place] [address] Note to Patients: This report may contain [...] F : 1995 (Age: 29) Address: [address] [place] [id number] Hospital #: [id number] Taken:12/26/2024 Received:12/26/2024 Reported: 12/27/2024 Patient Type: [facility] Service: Gastro Location: Physician(s): Caesar Ruff [...] Surgical Pathology and Flow Cytometry Departments at [facility] as part of an ongoing senior supplier quality engineer program and in compliance with [...] Surgical Pathology and Flow Cytometry Departments of [facility]. It has not been cleared or approved by the U. S. Food and Drug Administration. IMAGES AND SCANNED DOCUMENTS, IF INCLUDED, ONLY VIEWABLE IN PDF VERSION OF REPORT us Young Vasquez MD LAB PATHOLOGY ORDERABL ES Final Result PATHOLOGY [facility] 3rd Floor [place], [place] [phone] * EGD (12/26/2024 8:55 AM CDT) Anatomical [...] passed under direct vision. The [id number] endoscope was introduced through the mouth, and [...] HCG, ur, POC Negative Negative Lot Number [id number] QC Backgroud Clear Acceptable QC Control Line Acceptable Urine 12/26/2024 8:43 AM CDT Young Vasquez MD POINT OF CARE TEST ORD ERABLES Final Result * POCT glucose (12/26/2024 8:41 AM CDT) Glucose, POC 102 70 - 199 mg/dL Blood 12/26/2024 8:41 AM CDT 12/26/2024 8:41 AM CDT Young Vasquez MD LAB POCT ORDERABLES - DEVICE Final Result [facility] Department [place] [address] * (ABNORMAL) POCT glucose (12/26/2024 7:53 AM CDT) Glucose, POC 67(L) 70 - 199 mg/dL Blood 12/26/2024 7:53 AM CDT 12/26/2024 7:53 AM CDT Young Vasquez MD LAB POCT ORDERABLES - DEVICE Final Result Performing Organization Address City/[facility]/ZIP Co de Phone Number [facility] [place] [employer] [place] [address] * (ABNORMAL) eGFR (12/26/2024 7:03 AM CDT) [...] LAB BLOOD ORDERABLES F inal Result [facility] Department [place] [address] * (ABNORMAL) Comprehensive metabolic panel (12/26/2024 7:03 AM CDT) [facility] Sodium 129(L) 135 - 145 mmol/L Potassium, pl 4.8 3.3 - 4.9 mmol/L [facility] Comment:Hemolyzed; Potassium value may be falsely elevated by as much as 0.6-1.0 mmol/L. Suggest redraw and reanalysis. Chloride 94(L) 97 - 110 mmol/L [facility] CO2 25 22 - 32 mmol/L [facility] Anion gap 10 2 - 15 mmol/L [facility] BUN 18 6 - 25 mg/dL [facility] Creatinine 6.44(H) 0.60 - 1.10 mg/dL [facility] Glucose 110 70 - 199 mg/dL [facility] Comment: Interpretive Data Fasting glucose [...] Calcium 8.2(L) 8.5 - 10.3 mg/dL [facility] Bilirubin, total 0.4 0.1 - 1.2 mg/dL [facility] Protein, pl 7.9 6.5 - 8.5 g/dL [facility] Albumin 3.7 3.5 - 5.0 g/dL [facility] Alk phos 181(H) 40 - 130 Units/L [facility] ALT 18 7 - 45 Units/L [facility] AST 31 10 - 45 Units/L [facility] Comment:Hemolyzed; result ma y be falsely elevated Blood 12/26/2024 7:03 AM CDT 12/26/2024 7:04 AM CDT Young Vasquez MD LAB BLOOD ORDERABLES F inal Result [facility] Department [place] [address] * CT Abdomen and Pelvis Enterography W [...] signed by Mahin CORDOVA T: Report ID: [id number] Reading Location: [id number] Procedure Note Mahin Balderrama MD - 12/22/2024 [...] signed by Mahin CORDOVA T: Report ID: [id number] Reading Location: [place] [address] Raul Clark DO IMG CT PROCEDURES Final [...] signed by Mahin CORDOVA T: Report ID: [id number] Reading Location: [id number] Procedure Note Mahin Balderrama MD - 12/22/2024 [...] signed by Mahin CORDOVA T: Report ID: [id number] Reading Location: [place] [address] Raul Clark DO IMG CT PROCEDURES Final [...] by Andrei Nguyen M.D. T: Report ID: [id number] Reading Location: [id number] Procedure Note Andrei Nguyen MD - 12/10/2024 [...] by Andrei Nguyen M.D. T: Report ID: [id number] Reading Location: [id number] Raul Clark DO IMG XR PROCEDURES Final [...] by Andrei Nguyen M.D. T: Report ID: [id number] Reading Location: [id number] Procedure Note Andrei Nguyen MD - 12/10/2024 [...] by Andrei Nguyen M.D. T: Report ID: [id number] Reading Location: [place] [address] Raul Eduardo DO IMG XR PROCEDURES Final [...] LAB BLOOD ORDERABLES Marli deisi Result [facility] Department [place] [address] * Lipid panel (10/29/2024 8:13 PM CDT) [...] on 2017. Triglycerides 92 <=149 mg/dL [facility] Comment: Interpretive Data Ages < [...] on 2017. HDL 49 >=40 mg/dL [facility] Comment: Interpretive Data Ages < [...] 2017. LDL, calculated 58 <=129 mg/dL [facility] Comment: Interpretive Data Ages < [...] Giovanni Lucas et al. CARLOS Cardiol. 2019August 17;5(5):540545. doi: 10.1001/jamacardio.2020.0013 Current Interpretive Data was last revised on 2023. Non-HDL Cholesterol 75 mg/dL [facility] Comment: Interpretive Data Ages < [...] revised on 2017. Chol/HDL ratio 3 [facility] Blood 10/29/2024 8:13 PM CDT 10/29/2024 8:27 PM CDT Dennis Cadet MD LAB BLOOD ORDERABLES Marli l Result [facility] Department [place] [address] * TSH (01/09/2024 3:52 PM CDT) Thyroid Stimulating Hormone 2.46 0.30 - 4.20 mcIUnit/mL Blood 01/09/2024 3:52 PM CDT 01/09/2024 4:46 PM CDT Sailaja Ramos MD LAB BLOOD ORDERABLES Final Result Performing Organization Address City/[facility]/ZIP Co de Phone Number [facility] Department [place] [address] * Hepatitis panel, acute Blood (12/24/2023 7:26 [...] - GENERAL OR DERABLES Final Result [facility] [address] [facility] [place] [address] from Last 3 Months or Most Recently Relevant to Health Maintenance
--- OUTSIDE RECORDS SUMMARY | 2025-02-22 18:18 | XMS_ITS | Encounter Summary ---
Author Organization [facility] Address [address] [place] [address] Phone Care Team Providers Care Rrts Name Role Phone Andrei Chaves MD PhD Unavailable [phone] Olivia Phelps MD Unavailable [phone] Edgardo Aldridge MD Primary Care Provider Odilon Tellez MD Unavailable [phone] Ayaka Thomas MD Unavailable [phone] Yumi Jones NP Unavailable [phone] Mendel Bowling RN Unavailable [phone] Odilon Tellez MD Unavailable [phone] Mavis Barahona RN Unavailable [phone] Mahnaz Garcia RN Unavailable [phone] Jaimie Glez RN Unavailable [phone] Encounter Details Date Type Department Care Team (Late st Contact Info) Description 12/26/2024 Results Follow-Up [facility] Medicine Gastroenterology [address] [facility] Advanced Medicine 12th [place] [address] [place] [phone] Young Vasquez MD [address] [facility] [address] [place] [address] CT Abdomen and Pelvis Enterography W Contrast Social History Tobacco Use Types Packs/Day Years Used Date Smoking Tobacco: Never Smokeless Tobacco: Never Alcohol Use Standard Drinks/Week Comments Not Currently 0 (1 standard drink = 0.6 oz pur e alcohol) [facility] Utilities Answer Date Recorded In the past 12 months has e electric, gas, oil, or water dscout threatened to shut off services in your [...] often do you attend chur ch or spiritism services? Never 11/07/2024 Do you belong to [...] Date Recorded PHQ-2 Total Score 0 11/01/2024 [facility] Occupat ional [...] any time in the past 12 [facility], were you homeless or living in [...] on file Legal Sex Female 9:16 AM MANAGER HAIR Gender Identity Not on file Sexual Orientation [...] Time 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 [facility] 08/20/2024 CP-ELECT EQUIP MAINT ENG Comment:Added from external infection. [facility]. Kleb pneumo [facility] 10/31/2024 10/31/2024 documented as of this encounter Care Teams Rrts Relationship Specialty Start Date End Date Edgardo Aldridge MD [address] [facility] [address] [place] [address] PCP - General Family Medicine 04/02/23 Andrei Chaves MD PhD [address] [facility] [address] [place] [address] Referring Physician General Surgery 03/17/23 Olivia Phelps MD [address] [place] [address] Consulting Physician Nephrology 03/17/23 Odilon Tellez MD [address] [facility] [address] [place] [address] Referring Physician Nephrology 11/12/23 Ayaka Thomas MD [address] [facility] [address] [place] [address] Fellow Internal Medicine 12/17/23 Yumi Jones NP [address] [facility] [address] [place] [address] Nurse Practitioner Hospice and Palliative Medicine 08/16/23 Mendel Bowling, RN [address] [place] [address] [address] [place] [address] Instructor Pilot 11/07/24 01/04/25 Odilon Tellez MD [address] [facility] [address] [place] [address] Consulting Physician Nephrology 12/05/24 Mavis Barahona, RN [address] [facility] [address] [place] [address] Sheet Writer 12/20/24 Mahnaz Garcia RN [address] [place] [address] [address] [place] [address] Instructor Pilot 01/15/25 01/15/25 Jaimie Glez, KADY [address] [place] [address] [address] [place] [address] Instructor Pilot 01/29/25 02/07/25 documented as of this encounter
--- OUTSIDE RECORDS SUMMARY | 2025-02-22 18:18 | XMS_ITS | Encounter Summary ---
Author Organization [facility] Facility Care Team Providers Care Computer Technical Support Specialist Name Role Phone Unknown, Notinfile Primary Care Provider Unavail able Lay Villalta MD Primary Care Provider [phone] Tremayne Kebede MD Unavailable [phone] Georgia Mcbride BUSINESS TEAM LEADER Unavailable [phone] Miscellaneous, Not In File Unavailable Unava ilable Eun Camacho Primary Care Provider + Cony Pemberton CIVIL RIGHTS ATTORNEY Unavailable [phone] Antonette Vernon RN Unavailable [phone] Andrei Chaves MD PhD Unavailable [phone] Olivia Phelps MD Unavailable [phone] Edgardo Aldridge MD Primary Care Provider [phone] Odilon Tellez MD Unavailable [phone] Miscellaneous, Not In File Unavailable Unava ilable Ct Boggs CIVIL RIGHTS ATTORNEY Unavailable +[phone] Odilon Tellez MD Unavailable [phone] Tracey Felix RN Unavailable [phone] Ayaka Thomas MD Unavailable [phone] Yumi Jones NP Unavailable [phone] Ruthy Leahy CIVIL RIGHTS ATTORNEY Unavailable Unavaila ble Feli Boggs RN Unavailable Mendel Bowling RN Unavailable [phone] Leslie Baptiste [facility] Unavailable Mendel Bowling RN Unavailable [phone] Odilon Tellez MD Unavailable [phone] Mavis Barahona RN Unavailable [phone] Mahnaz Garcia RN Unavailable Jaimie Glez RN Unavailable [phone] Encounter Details Date Type Department Care Team (Latest Contact Info) Description 06/07/2018 Orders Only [facility] CLINCONV ProviderSotero MD [address] [place] [address] Social History Tobacco Use Types Packs/Day Years Used Date Smoking Tobacco: Never Comments Unknown Sex and Gender Information Value Date Recorded Sex Assigned at Not on file Legal Sex Female 9:16 AM LICENSED ACUPUNCTURIST Gender Identity Not on file Sexual Orientation Not on file documented as of this encounter Plan of Treatment Not on file documented as of this encounter Procedures Procedure Name Priority Date/Time Associated Diagnosis Comments SCAN - LABS 2018 12:00 AM LICENSED ACUPUNCTURIST SCAN - LABS 06/13/2018 12:00 AM LICENSED ACUPUNCTURIST SCAN - LABS 06/08/2018 12:00 AM LICENSED ACUPUNCTURIST documented in this encounter Results * SCAN - LABS (2018 12:00 AM LICENSED ACUPUNCTURIST) Narrative 2018 12:00 AM LICENSED ACUPUNCTURIST Ordered by an unspecified provider. Historical Provider Final Res ult * SCAN - LABS (06/13/2018 12:00 AM LICENSED ACUPUNCTURIST) Narrative 06/13/2018 12:00 AM LICENSED ACUPUNCTURIST Ordered by an unspecified provider. Historical Provider Final Res ult * SCAN - LABS (06/08/2018 12:00 AM LICENSED ACUPUNCTURIST) Narrative 06/08/2018 12:00 AM LICENSED ACUPUNCTURIST Ordered by an unspecified provider. Historical Provider [...] CDT COVID19 02/02/2020 02/02/2020 02/19/2020 3:05 AM LICENSED ACUPUNCTURIST COVID: Recovered Comment:Added based on recent COVID [...] COVID: Suspected 06/15/2023 06/15/2023 06/15/2023 5:53 PM LICENSED ACUPUNCTURIST C. difficile suspected 06/24/2023 06/24/202306/26 6:03 AM [...] Comment:Added from external infection. Source: [facility]. 08/20/2024 Carbapenemase, Unspecified Comment:Added from external infection. Source: [facility]. Kleb pneumo KPC 09/23/2024 10/31/2024 3:07 PM C DT CP-POLICE SERVICE TECHNICIAN Comment:Added from external infection. Source: [facility]. Kleb pneumo KPC 10/31/2024 10/31/2024 documented as of this encounter Care Teams Computer Technical Support Specialist Relationship Specialty Start Date End Date Unknown, Notinfile PCP - General 12/28/16 08/23/18 Lay Villalta MD PCP - General Family Medicine 08/24/18 07/17/21 Eun Camacho PA PCP - General Family Medicine 07/18/21 03/08/23 Edgardo Aldridge MD [address] [facility] 2 or 4 [place] [address] PCP - General Family Medicine 04/02/23 Tremayne Kebede MD Consulting Physician Gastroenterology 02/05/20 3 Georgia Mcbride BUSINESS TEAM LEADER [address] [facility] [address] [place] [address] ACO Care Associate Director Of Biostatistics 11/28/20 12/19/20 Miscellaneous, Not In File 07/17/21 03/16/23 Cony Pemberton LCSW [address] [facility] ([facility]) Mailstop [id number] [place] [address] SHOP Outpatient Drip Box Tender 12/07/22 12/07/22 Antonette Vernon RN 45[address] [facility] 5300 [place] [address] SHOP Outpatient Drip Box Tender 12/08/22 01/05/23 [place] [address] [place] [address] [address] [place] [address] Referring Physician General Surgery 03/17/23 Olivia Phelps MD [address] [facility] 2 or 4 [place] [address] Consulting Physician Nephrology 03/17/23 Odilon Tellez MD [address] [facility] 2 or 4 [place], [place] [address] Consulting Physician Nephrology 05/01/23 12/04/24 Miscellaneous, Not In File 07/08/23 01/24/24 Ct Boggs CIVIL RIGHTS ATTORNEY [address] [place] [address] ([facility]) Mailstop [phone] [place] [address] SHOP Outpatient Drip Box Tender 07/09/23 08/05/23 Odilon Tellez MD [address] [facility] 2 or 4 [place] [address] Referring Physician Nephrology 11/12/23 Tracey Felix, KADY [address] [facility] [address] [place] [address] Instrument Technologist 11/12/23 11/17/23 Ayaka Thomas MD [address] [facility] [address] [place] [address] Fellow Internal Medicine 12/17/23 Yumi Jones NP [address] [place] [address] [facility] [address]276 [place] [address] Nurse Practitioner Hospice and Palliative Medicine 08/16/23 Ruthy Leahy LCSW Retail Office Manager 12/31/23 02/22/24 Feli Boggs RN [address] [place] [address] [address] [place] [address] Category Consultant 12/31/23 01/02/24 Mendel Bowling RN [address] [place] [address] [address] [place] [address] Category Consultant 01/03/24 03/23/24 Leslie Baptiste [address] [place] [address] Pharmacist Pharmacy 01/13/24 02/03/24 Mendel Bowling RN [address] [place] [address] [address] [place] [address] Category Consultant 11/07/24 01/04/25 Odilon Tellez MD [address] [facility] [address] [place] [address] Consulting Physician Nephrology 12/05/24 Mavis Barahona, RN 4590 [facility] 3401 [place] [address] Instrument Technologist 12/20/24 01/08/25 Mahnaz Garcia RN [address] [place] [address] [address] [place] [address] Category Consultant 01/15/25 01/15/25 Jaimie Glez, KADY [address] [place] [address] [address] [place] [address] Category Consultant 01/29/25 02/07/25 documented as of this encounter
--- OUTSIDE RECORDS SUMMARY | 2025-02-22 18:18 | XMS_ITS | Encounter Summary ---
Author Organization [facility] Facility Care Team Providers Care Soapstoner Name Role Phone Unknown, Notinfile Primary Care Provider Unavail able Lay Villalta MD Primary Care Provider [phone] Tremayne Kebede MD Unavailable [phone] Georgia Mcbride GEOLOGICAL SAMPLE TESTER Unavailable [phone] Miscellaneous, Not In File Unavailable Unava ilable Eun Camacho Primary Care Provider + Cony Pemberton POLICE ACADEMY INSTRUCTOR Unavailable [phone] Antonette Vernon RN Unavailable [phone] Andrei Chaves MD PhD Unavailable [phone] Olivia Phelps MD Unavailable [phone] Edgardo Aldridge MD Primary Care Provider [phone] Odilon Tellez MD Unavailable [phone] Miscellaneous, Not In File Unavailable Unava ilable Ct Boggs POLICE ACADEMY INSTRUCTOR Unavailable [phone] Odilon Tellez MD Unavailable [phone] Tracey Felix RN Unavailable [phone] Ayaka Thomas MD Unavailable [phone] Yumi Jones NP Unavailable [phone] [employer] POLICE ACADEMY INSTRUCTOR Unavailable Unavaila ble Feli Boggs RN Unavailable [phone] Mendel Bowling RN Unavailable [phone] Leslie Baptiste [facility] Unavailable [phone] Mendel Bowling RN Unavailable [phone] Odilon Tellez MD Unavailable [phone] Mavis Barahona RN Unavailable [phone] Mahnaz Garcia RN Unavailable [phone] Jaimie Glez RN Unavailable [phone] Encounter Details Date Type Department Care Team (Latest Contact Info) Description 02/01/2017 Orders Only [facility] CLINCONV Provider, MD Sotero [address] [place] [address] Social History Tobacco Use Types Packs/Day Years Used Date Smoking Tobacco: Never Comments Unknown Sex and Gender Information Value Date Recorded Sex Assigned at Not on file Legal Sex Female 9:16 AM STAFF MINE WARFARE OFFICER Gender Identity Not on file Sexual [...] CDT COVID19 02/02/2020 02/02/2020 02/19/2020 3:05 AM STAFF MINE WARFARE OFFICER COVID: Recovered Comment:Added based on recent COVID [...] COVID: Suspected 06/15/2023 06/15/2023 06/15/2023 5:53 PM STAFF MINE WARFARE OFFICER C. difficile suspected 06/24/2023 06/24/202306/26 6:03 AM [...] Comment:Added from external infection. Source: [facility]. 08/20/2024 Carbapenemase, Unspecified Comment:Added from external infection. Source: [facility]. Kleb pneumo KPC 09/23/2024 10/31/2024 3:07 PM C DT CP-INVENTORY COORDINATOR Comment:Added from external infection. Source: [facility]. Kleb pneumo KPC 10/31/2024 10/31/2024 documented as of this encounter Care Teams Soapstoner Relationship Specialty Start Date End Date Unknown, Notinfile PCP - General 12/28/16 08/23/18 Lay Villalta MD PCP - General Family Medicine 08/24/18 07/17/21 Eun Camacho PA PCP - General Family Medicine 07/18/21 03/08/23 Edgardo Aldridge MD [address]15 [facility] 2 or 4 [place] [address] PCP - General Family Medicine 04/02/23 Tremayne Kebede MD Consulting Physician Gastroenterology 02/05/20 3 Georgia Mcbride LPN [address] [place] [address] [address] [place] [address] ACO Care Mounter Flutes And Piccolos 11/28/20 12/19/20 Miscellaneous, Not In File 07/17/21 03/16/23 Cony Pemberton, POLICE ACADEMY INSTRUCTOR [address] [facility] ([facility]) Mailstop [id number] [place] [address] SHOP Outpatient School Bus Driver/Teacher Assistant 12/07/22 12/07/22 Antonette Vernon, KADY [address] [facility] [address] [place] [address] SHOP Outpatient School Bus Driver/Teacher Assistant 12/08/22 01/05/23 Andrei Chaves MD PhD 49[address] [facility] [address] [place] [address] Referring Physician General Surgery 03/17/23 Olivia Phelps MD [address] [facility] [address] [place], [place] [address] Consulting Physician Nephrology 03/17/23 Odilon Tellez MD [address]15 [facility] [address] or 4 [place], [place] [address] Consulting Physician Nephrology 05/01/23 12/04/24 Miscellaneous, Not In File 07/08/23 01/24/24 Ct Boggs, [facility] [address] [facility] ([facility]) Mailstop [phone] [place] [address] SHOP Outpatient School Bus Driver/Teacher Assistant 07/09/23 08/05/23 Odilon Tellez MD [address] [facility] [address] [place] [address] Referring Physician Nephrology 11/12/23 Tracey Felix, KADY [address] [place] [address] High Energy Forming Equipment Operator 11/12/23 11/17/23 Ayaka Thomas MD [address] [facility] [address] [place] [address] Fellow Internal Medicine 12/17/23 Yumi Jones NP 1 [facility] [address] [place] [address] Nurse Practitioner Hospice and Palliative Medicine 08/16/23 Ruthy Leahy LCSW Day Camp Unit Leader 12/31/23 02/22/24 Feli Boggs, RN [address] [place] [address] [address] [place] [address] Operator Receptionist 12/31/23 01/02/24 Mendel Bowling, KADY [address] [place] [address] [address] [place] [address] Operator Receptionist 01/03/24 03/23/24 Leslie Baptiste, [address] [place] [address] Pharmacist Pharmacy 01/13/24 02/03/24 Mendel Bowling, KADY [address] [place] [address] [place] [address] Operator Receptionist 11/07/24 01/04/25 Odilon Tellez MD [address] [facility] [address] [place] [address] Consulting Physician Nephrology 12/05/24 Mavis Barahona, RN [address] [facility] [address] [place] [address] High Energy Forming Equipment Operator 12/20/24 01/08/25 Mahnaz Garcia, KADY [address] [place] [address] [address] [place] [address] Operator Receptionist 01/15/25 01/15/25 Jaimie Glez RN [address] [place] [address] [address] [place] [address] Operator Receptionist 01/29/25 02/07/25 documented as of this encounter
--- OUTSIDE RECORDS SUMMARY | 2025-02-22 18:18 | XMS_ITS | Encounter Summary ---
Author Organization [facility] Healthcare Address [address] [place] [address] Care Team Providers Care Supervisor Extruding Department Name Role Phone Andrei Chaves MD PhD Unavailable [phone] Olivia Phelps MD Unavailable [phone] Edgardo Aldridge MD Primary Care Provider Odilon Tellez MD Unavailable [phone] Ayaka Thomas MD Unavailable [phone] Yumi Jones NP Unavailable [phone] Odilon Tellez MD Unavailable [phone] Jaimie Glez RN Unavailable [phone] Reason for Visit * Reason Onset Date Comments req a cb about surg 01/24/2025 FYI 01/24/2025 Encounter Details Date Type Department Care Team (Late st Contact Info) Description 01/24/2025 Telephone [facility] Medical Group Orthopedics and Sports Medicine [address] [place] [address] Sussy Garcia PA [address] [place] [address] req a cb about surg; FYI [...] any clubs o r organizations such as cheondoism groups, unions, fraternal or athletic groups, or [...] 0 01/09/2025 [facility] of Occupat ional Health - Occupational Stress [...] any time in the past 12 m [facility], were you homeless or living in [...] any clubs o r organizations such as cheondoism groups, unions, fraternal or athletic groups, or [...] any time in the past 12 m [facility], were you homeless or living in a retirement (including now)? No 01/17/2025 [facility] Utilities Answer Date Recorded In the [...] on file Legal Sex Female 9:16 AM IMMIGRATION PARALEGAL Gender Identity Not on file Sexual Orientation [...] she has been admitted to [facility] since 01/15/25 and they were going to [...] Time 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 Source: [facility]. 08/20/2024 CP-DIKE SUPERVISOR Comment:Added from external infection. Source: [facility]. Kleb pneumo C 10/31/2024 10/31/2024 documented as of this encounter Care Teams Supervisor Extruding Department Relationship Specialty Start Date End Date Edgardo Aldridge MD [address]15 [facility] 2 or 4 [place] [address] PCP - General Family Medicine 04/02/23 Andrei Chaves MD PhD 49[address] [facility] [address] [place] [address] Referring Physician General Surgery 03/17/23 Olivia Phelps MD 9515 [facility] [address] 4 [place] [address] Consulting Physician Nephrology 03/17/23 Odilon Tellez MD 9515 [facility] [address] 4 [place] [address] Referring Physician Nephrology 11/12/23 Ayaka Thomas MD [address]15 [facility] 2 or 4 [place] [id number] Fellow Internal Medicine 12/17/23 Yumi Jones ELECTRICAL CONSTRUCTION PROJECT MANAGER 1 [facility] [address] [place] [address] Nurse Practitioner Hospice and Palliative Medicine 08/16/23 Odilon Tellez MD 4550 [facility] [address] [place] [address] Consulting Physician Nephrology 12/05/24 Jaimie Glez, KADY [address] [place] [address] [address] [place] [address] Supervisor Pastry 01/29/25 02/07/25 documented as of this encounter
--- OUTSIDE RECORDS SUMMARY | 2025-02-22 18:18 | XMS_ITS | Encounter Summary ---
Author Organization [facility] Address [address] [place] [address] Phone Care Team Providers Care Peoplesoft Hcm Consultant Name Role Phone Andrei Chaves MD PhD Unavailable [phone] Olivia Phelps MD Unavailable [phone] Edgardo Aldridge MD Primary Care Provider Odilon Tellez MD Unavailable [phone] Ayaka Thomas MD Unavailable Yumi Jones NP Unavailable [phone] Mendel Bowling RN Unavailable [phone] Odilon Tellez MD Unavailable [phone] Mavis Barahona RN Unavailable [phone] Mahnaz Garcia RN Unavailable [phone] Jaimie Glez RN Unavailable [phone] Encounter Details Date Type Department Care Team (Late st Contact Info) Description 12/28/2024 Results Follow-Up [facility] Medicine Gastroenterology [address] [facility] Advanced Medicine 12th [place] [address] [place] [id number] Young Vasquez MD 1 [facility] [address] [place] [address] Surgical pathology Social History Tobacco Use Types Packs/Day Years Used Date Smoking Tobacco: Never Smokeless Tobacco: Never Alcohol Use Standard Drinks/Week Comments Not Currently 0 (1 standard drink = 0.6 oz pur e alcohol) [facility] Utilities Answer Date Recorded In [...] any clubs o r organizations such as evangelical groups, unions, fraternal or athletic groups, or [...] any time in the past 12 m [facility], were you homeless or living in a penitentiary (including now)? No 11/07/2024 AUDIT-C Answer Date [...] on file Legal Sex Female 9:16 AM MATCH MARKER Gender Identity Not on file Sexual Orientation [...] Comment:Added from external infection. Source: [facility]. 08/20/2024 CP-MAINTENANCE CONTROLLER Comment:Added from external infection. Source: [facility]. Kleb pneumo [facility] 10/31/2024 10/31/2024 documented as of this encounter Care Teams Peoplesoft Hcm Consultant Relationship Specialty Start Date End Date Edgardo Aldridge MD 9515 [facility] [address] or 4 [place] [address] PCP - General Family Medicine 04/02/23 Andrei Chaves MD PhD 49[address] [facility] [address] [address] Referring Physician General Surgery 03/17/23 Olivia Phelps MD 9515 [facility] 2 or 4 [place] [address] Consulting Physician Nephrology 03/17/23 Odilon Tellez MD 9515 [facility] [address] 4 [place] [address] Referring Physician Nephrology 11/12/23 Ayaka Thomas MD 9515 [facility] 2 or 4 [place] [address] Fellow Internal Medicine 12/17/23 Yumi Jones NP [address] [place] [address] [address] [place] [address] Nurse Practitioner Hospice and Palliative Medicine 08/16/23 Mendel Bowling, RN [address] [place] [address] [address] [place] [address] Coverage Specialist Rn 11/07/24 01/04/25 Odilon Tellez MD [address] [facility] [address] [place] [address] Consulting Physician Nephrology 12/05/24 Mavis Barahona, RN 4590 [facility] [address] [place] [address] Testing Tech 12/20/24 Mahnaz Garcia RN [address] [place] [address] [address] [place] [address] Coverage Specialist Rn 01/15/25 01/15/25 Jaimie Glez RN [address] [place] [address] [address] [place] [address] Coverage Specialist Rn 01/29/25 02/07/25 documented as of this encounter
--- NOTE | 2025-02-22 18:21 | ADMGEN ---
This patient, Lynette Bellamy, was admitted to Medical Room 341-01. Patient/family oriented to hospital policies and general routines including ID bracelet, bed and alarms, visiting hours, pain management, procedures, bathroom and other care routines, personal items, smoking policy, room service/diet, and visiting hours. Information on how to activate the Rapid Response Team has been discussed. Patient/Family are encouraged to report perceived risks to care and to ask questions if they do not understand what they are told or what they should do.
[2025-02-22] MEDS: GABAPENTIN 100 MG CAPSULE PO (19:09)
--- NOTE | 2025-02-22 20:02 | PM.IMHP ---
H&P: HPI History of Present Illness Date/Time: 02/22/25 20:02 Chief Complaint: Nausea vomiting Narrative: 29-year-old female the past medical history of DM 1, HTN, gastroparesis s/p Enterra device and G/J tube, ESRD on HD TTS presents to the ED on 02/22/2025 with complaints of nausea and vomiting related to her gastroparesis. Patient missed her Wednesday dialysis due to not feeling well. She did have a full makeup session yesterday. Patient is a brittle diabetic and had a hypoglycemic event in the ED. Patient is set up to have palliative care through [facility] coming to her home sometime next week. Her hope is they can help with her symptom management to hopefully keep her out of the hospital. Patient had a recent prolonged stay from 01/30/25-02/17/25 for DKA and complications with gastroparesis. Patient is not always able to tolerate her nighttime tube feeds. She also complains of persistent abdominal pain requiring Dilaudid for pain control and persistent nausea that is only occurred by IV Benadryl. Initial vital signs 184/112, HR 112, respirations 16, temp 97?, 100% on room air No leukocytosis, anemia, or thrombocytopenia. Chem panel consistent with her ESRD. Chronic transaminitis. Hyperglycemia with anion gap but not frankly acidotic. CO2 19. Holding off on antibiotics based on her UA as this is likely more urine stasis. Urine culture pending. Chest x-ray with no acute cardiopulmonary findings. Abdominal pelvic CT shows mild wall thickening in the small intestine, large bowel, distal esophagus that could be associated with 3rd spacing however, earlier mild inflammatory infectious changes could look similar. Urinary bladder mildly distended. Review of Systems Review of Systems: All systems reviewed & are unremarkable except as noted in HPI and below PMFSH Past Medical History Medical History (Updated 02/23/25 @ 01:38 by Luiza Garcia APRN) Anemia in chronic kidney disease Diabetic gastroparesis Port-A-Cath in place Type 1 diabetes Diagnosed at age 7 Depression Surgical History Surgical History S/P dialysis catheter insertion (~2022) Status post insertion of percutaneous endoscopic gastrostomy (PEG) tube For gastric drainage Status post jejunostomy (12/2024) For feeds History of cholecystectomy Family History Family History Other Family history of cardiovascular disease Social History Social History Social History: She is not and does not have any children. She lives with her mother and is on disability. She is a lifelong nonsmoker and does not drink alcohol or use illicit substances. Code status: Full code Surrogate decision maker: Mother Smoking status: Never smoker Alcohol intake: never Substance use: never Substance use type: does not use Lack of Transportation: No Lack of Food: Never True Current Housing: I Have Housing Concerned About Future Housing: No Difficulty Paying Gas/Electric Bills: No Difficulty Paying for Meds: No Currently Unemployed: YES Education: High School Diploma/GED Difficulty w/ Childcare or Family Care: No Gender identity (if verbalized by the patient): Female Spiritual care concerns: No Meds Home Medications and Allergies Home Medications ?Medication ?Instructions ?Recorded ?Confirmed ?Type insulin lispro 100 unit/mL 1 sliding scale dose subcut PRN 06/02/22 02/22/25 History subcutaneous pen losartan 25 mg tablet 25 mg PO DAILY 06/02/22 02/22/25 History amlodipine 10 mg tablet 10 mg PO DAILY 01/01/25 02/22/25 History carvedilol 12.5 mg tablet 12.5 mg PO Q12H 01/01/25 02/22/25 History escitalopram oxalate 10 mg tablet 10 mg PO DAILY 01/01/25 02/22/25 History gabapentin 100 mg capsule 100 mg PO TID 01/01/25 02/22/25 History glucagon 0.5 mg/0.1 mL 0.5 mg subcut PRN PRN hypoglycemia 01/01/25 02/22/25 History subcutaneous auto-injector (Gvoke HypoPen 2-Pack) metoprolol succinate 200 mg 200 mg PO DAILY 01/01/25 02/22/25 History tablet,extended release 24 hr isosorbide mononitrate 30 mg 30 mg PO QAM 30 days #30 tabs 01/05/25 02/22/25 Rx tablet,extended release 24 hr pantoprazole 40 mg tablet,delayed 40 mg PO QAM 30 days #30 tabs 01/05/25 02/22/25 Rx release insulin glargine 100 unit/mL (3 25 unit (0.25 mL) subcut .AM #3 mL 02/16/25 02/22/25 Rx mL) subcutaneous pen (Lantus Solostar U-100 Insulin) ondansetron 4 mg disintegrating 4 mg PO Q6H #60 tabs 02/17/25 02/22/25 Rx tablet Allergies Allergy/AdvReac Type Severity Reaction Status Date / Time metoclopramide (From Reglan) Allergy Intermediate Muscle Verified 02/22/25 18:28 Spasms trimethobenzamide (From Allergy Intermediate hives Verified 02/22/25 18:28 Tigan) hydralazine Allergy Hives Verified 02/22/25 18:28 Vital Signs Vital Signs - 24 hr 02/22/25 08:54 02/22/25 09:22 02/22/25 09:31 Temperature 97.0 F L Pulse Rate 112 H 111 H 112 H Respiratory Rate 16 28 H 19 Blood Pressure 184/112 H 214/127 H 211/132 H Pulse Oximetry 100 97 98 Oxygen Delivery Room Air 02/22/25 10:15 02/22/25 10:46 02/22/25 11:01 Temperature Pulse Rate 116 H 119 H 123 H Respiratory Rate 20 17 20 Blood Pressure 199/127 H 216/135 H 214/136 H Pulse Oximetry 97 100 100 Oxygen Delivery 02/22/25 11:16 02/22/25 11:27 02/22/25 11:31 Temperature Pulse Rate 114 H 113 H 113 H Respiratory Rate 17 17 16 Blood Pressure 209/137 H 209/137 H 211/124 H Pulse Oximetry 100 100 100 Oxygen Delivery 02/22/25 11:34 02/22/25 11:46 02/22/25 12:01 Temperature Pulse Rate 114 H 113 H 118 H Respiratory Rate 16 16 20 Blood Pressure 211/124 H 215/129 H 211/134 H Pulse Oximetry 100 100 100 Oxygen Delivery 02/22/25 12:16 02/22/25 12:31 02/22/25 12:46 Temperature Pulse Rate 114 H 116 H 118 H Respiratory Rate 20 19 16 Blood Pressure 223/125 H 218/133 H 210/129 H Pulse Oximetry 100 100 100 Oxygen Delivery 02/22/25 13:01 02/22/25 13:15 02/22/25 13:16 Temperature Pulse Rate 111 H 100 108 H Respiratory Rate 20 16 20 Blood Pressure 213/123 H 196/108 H 196/108 H Pulse Oximetry 100 100 98 Oxygen Delivery 02/22/25 15:01 02/22/25 15:31 02/22/25 16:01 Temperature Pulse Rate 106 H 105 H 106 H Respiratory Rate 19 15 14 Blood Pressure 206/113 H 199/117 H 192/105 H Pulse Oximetry 100 99 97 Oxygen Delivery 02/22/25 17:01 02/22/25 17:33 02/22/25 18:43 Temperature Pulse Rate 100 104 H Respiratory Rate 14 12 Blood Pressure 185/101 H 187/108 H Pulse Oximetry 96 100 Oxygen Delivery Room Air Exam Narrative: GENERAL: Appears uncomfortable HEAD: Normocephalic, atraumatic. EYES: PERRLA. Conjunctivae clear. NOSE: Normal no drainage. THROAT: Pharynx clear, no exudate. NECK: Trachea midline. No adenopathy, no masses. CHEST: Left-sided Port-A-Cath in place, right-sided tunnel catheter in place RESPIRATORY: Airway patent, respirations nonlabored. CTA. CARDIOVASCULAR: Regular rate and rhythm BREASTS: Defer GASTROINTESTINAL: Abdomen is soft and nontender. No organomegaly. Bowel sounds normal in all quadrants. Frequent belching. GJ tube in place GENITOURINARY: Defer MUSCULOSKELETAL: Moves all extremities. No gross deformities. SKIN: Warm, dry, normal color. NEURO: A&O X4. Speech clear PSYCHIATRIC: Normal interaction H&P: Results Labs Labs: Short CBC 02/22/25 Range/Units 10:08 WBC 5.5 (4.5-10.0) K/mm3 Hgb 12.9 (12.0-15.0) g/dL Hct 40.2 (37.0-47.0) % Plt Count 239 (150-375) k/mm3 BMP 02/22/25 10:08 Sodium 136 L Potassium 5.2 H Chloride 98 Carbon Dioxide 19 L BUN 35 H D Creatinine 7.61 H Glucose 171 H Calcium 8.3 L Liver Function 02/22/25 Range/Units 10:08 Total Bilirubin 1.1 (0.2-1.3) mg/dL AST 49 H (14-36) U/L ALT 119 H (6-35) U/L Alkaline Phosphatase 221 H (38-126) U/L Albumin 4.8 (3.5-5.1) g/dL Urine 02/22/25 Range/Units 13:51 Urine Color Yellow (Yellow) Urine Appearance Clear (Clear) Urine pH 7.5 (5.0-9.0) Ur Specific [place] 1.017 (1.001-1.035) Urine Protein 4+ H (Negative) mg/dL Urine Glucose (UA) 2+ H (Negative) mg/dL Assessment and Plan Assessment and plan (1) Intractable nausea and vomiting: Code(s): R11.2 - Nausea with vomiting, unspecified Status: Chronic Assessment and Plan: Secondary to history of chronic nausea and vomiting in a patient with known gastroparesis status post Enterra device and G/J tube. Patient uses the gastric portion of her tube to drain stomach contents. Patient given multiple interventions in the ED totaling 2 mg hydromorphone, 50 mg IVP Benadryl, 20 mg IVP Pepcid, 5 mg haloperidol, 4 mg Zofran. Abdominal pelvic CT shows mild wall thickening in the small intestine, large bowel, distal esophagus that could be associated with 3rd spacing however, earlier mild inflammatory infectious changes could look similar. -continue Zofran, diphenhydramine IV push -nocturnal tube feeds at 45 mL/hr through the jejunum tube -registered dietitian consulted -consider gravity drain or low intermittent suction for gastric tube to help with nausea due to gastroparesis -continue hydromorphone for pain. Wean as able as narcotics likely play some role in her GI symptoms (2) Hypertension: Qualifiers: Hypertension type: primary hypertension Qualified Code(s): I10 - Essential (primary) hypertension Code(s): I10 - Essential (primary) hypertension Status: Chronic Assessment and Plan: Patient hypertensive on admit -continue metoprolol succinate 200 mg daily, Coreg 12.5 q12, amlodipine 10 mg daily (3) End stage renal disease on dialysis: Code(s): N18.6 - End stage renal disease; Z99.2 - Dependence on renal dialysis Status: Chronic Assessment and Plan: ESRD on HD TTS. Patient missed her Wednesday dialysis due to not feeling well. She did have a full makeup session yesterday. -nephrology consulted (4) DKA, type 1: Qualifiers: Diabetes mellitus complication detail: without coma Qualified Code(s): E10.10 - Type 1 diabetes mellitus with ketoacidosis without coma Code(s): E10.10 - Type 1 diabetes mellitus with ketoacidosis without coma Status: Chronic Assessment and Plan: Very brittle type 1 diabetic. Diagnosed at age 7. Follows endocrinology at [place]. Patient has hyperglycemic and hypoglycemic events during hospitalizations. - hypoglycemia protocol - POC blood glucose ACHS and Q 6 as patient eats some through the day and gets tube feeding at night. - home medication: Lantus 25 units daily, lispro sliding scale - correct regimen ordered: Lantus 20 units daily, low-dose sliding scale with meals and bedtime -will closely monitor patient's blood sugar trends. Will likely need several adjustments throughout her hospitalization Plan Diet: Diabetic for pleasure feeds/nocturnal tube feeds GI prophylaxis: Pantoprazole DVT prophylaxis: Heparin subQ lines/drains: Port-A-Cath left chest, tunneled dialysis catheter to right chest, GJ tube Fluids: 500 mL NS bolus Code status: Full Quality VTE Prophylaxis VTE prophylaxis: pharmacologic ordered Hospitalist [facility] Advance Care Plan I have confirmed that the patient's Advanced Care Plan is present, code status is documented, or surrogate decision maker is listed in patient medical record.: Yes Medication Reconciliation I have utilized all available resources to obtain, update and review the patients current medications (includes all prescriptions, OTC, herbals, cannabis, and nutritional supplements).: Yes
[2025-02-22 20:13] LABS: MRSA (PCR) NOT DETECTED (NOT DETECTE)
[2025-02-23] VITALS (7 sets, daily range): BP systolic 137–201; BP diastolic 82–115; PULSE 9–96; RESP 16–20; TEMP 36.6–36.7; O2SAT 99–100; BMI 25.7
[2025-02-23] MEDS: HYDROmorphone HCL INJ (*CRX) 1 MG/ML SYR IV PUSH ×4 (00:39→13:43)
[2025-02-23] MEDS: LOPERAMIDE HCL 2 MG CAPSULE 4 MG PO (03:32)
[2025-02-23] MEDS: CENTRAL LINE FLUSH 10 ML IV PUSH ×3 (03:33→20:36)
[2025-02-23] MEDS: INSULIN ASPART (*BKC) 100 UNITS/ML SUB-Q (08:59)
[2025-02-23] MEDS: INSULIN GLARGINE (*BKC) 100 UNITS/ML 20 UNITS SUB-Q (09:02)
[2025-02-23] MEDS: METOPROLOL SUCCINATE EXT REL 100 MG TABCR 200 MG PO (09:07)
[2025-02-23] MEDS: ISOSORBIDE MONONITRATE 30 MG TAB.ER.24H PO (09:09)
[2025-02-23] MEDS: LOSARTAN POTASSIUM 25 MG TABLET PO (09:09)
[2025-02-23] MEDS: ESCITALOPRAM OXALATE 10 MG TABLET PO (09:09)
[2025-02-23] MEDS: PANTOPRAZOLE 40 MG TABLET PO (09:09)
[2025-02-23] MEDS: GABAPENTIN 100 MG CAPSULE PO ×3 (09:09→16:29)
--- NOTE | 2025-02-23 10:12 | PM.IMPN ---
Progress Note: A&P Assessment and Plan (1) Intractable nausea and vomiting: Code(s): R11.2 - Nausea with vomiting, unspecified Status: Chronic Assessment and Plan: Secondary to history of chronic nausea and vomiting in a patient with known gastroparesis status post Enterra device and G/J tube. Patient uses the gastric portion of her tube to drain stomach contents. Patient given multiple interventions in the ED totaling 2 mg hydromorphone, 50 mg IVP Benadryl, 20 mg IVP Pepcid, 5 mg haloperidol, 4 mg Zofran. Abdominal pelvic CT shows mild wall thickening in the small intestine, large bowel, distal esophagus that could be associated with 3rd spacing however, earlier mild inflammatory infectious changes could look similar. Intolerances to Reglan, tigan, and avoids compazine. -continue Zofran, diphenhydramine IV push -nocturnal tube feeds at 45 mL/hr through the jejunum tube -registered dietitian consulted -consider gravity drain or low intermittent suction for gastric tube to help with nausea due to gastroparesis -continue hydromorphone for pain, need to wean because it will worsen gastroparesis, 1mg>0.5mg q4 prn Likely experiencing some tolerance after her recent hospitalization -Can offer a Dilaudid GUM SCORING MACHINE OPERATOR pump 0.2mg q15 minutes prn if patient requests. Discussed with her that it would give her the same amount of dilaudid as she can get with 1mg q4 but she preferred the 0.5mg IV pushes for now. Not planning to escalate IV push opiate medications --ambien 2.5hs prn for sleep, feels this was helpful for nausea previously (2) Abdominal pain: Code(s): R10.9 - Unspecified abdominal pain Status: Acute Assessment and Plan: Complicated history with limited medication options. Doesn't feel bentyl helps her. Having diarrhea s/p imodium x1 GI consult if not improving. Discussed with her that there are more limited options at this hospital, will need transfer to [facility] if not improving Check ESR, CRP Stool studies: H pylori, Stool culture, C-diff Limit opiates with gastroparesis. Offered a GUM SCORING MACHINE OPERATOR but patient declined at this time 02/22/25 CT abd/pelvis 1. Mild wall thickening in the small and large bowel as well as the distal esophagus could be associated with third spacing; early or mild inflammatory or infectious changes may have a similar appearance. Correlate clinically. 2. The urinary bladder is mildly distended. No acute surgical abnormality identified. 3. Slightly improved aeration in the left lung base. (3) Hypertension: Qualifiers: Hypertension type: primary hypertension Qualified Code(s): I10 - Essential (primary) hypertension Code(s): I10 - Essential (primary) hypertension Status: Chronic Assessment and Plan: Patient hypertensive on admit -continue metoprolol succinate 200 mg daily, Coreg 12.5 q12, amlodipine 10 mg daily -Has an allergy to hydralazine --If not tolerating pills, can add metoprolol IV (4) End stage renal disease on dialysis: Code(s): N18.6 - End stage renal disease; Z99.2 - Dependence on renal dialysis Status: Chronic Assessment and Plan: ESRD on HD TTS. Patient missed her Wednesday dialysis due to not feeling well. She did have a full makeup session prior to admission -nephrology consulted (5) DKA, type 1: Qualifiers: Diabetes mellitus complication detail: without coma Qualified Code(s): E10.10 - Type 1 diabetes mellitus with ketoacidosis without coma Code(s): E10.10 - Type 1 diabetes mellitus with ketoacidosis without coma Status: Chronic Assessment and Plan: Very brittle type 1 diabetic. Diagnosed at age 7. Follows endocrinology at [facility]. Patient has hyperglycemic and hypoglycemic events during hospitalizations. - hypoglycemia protocol - POC blood glucose ACHS and Q 6 as patient eats some through the day and gets tube feeding at night. - home medication: Lantus 25 units daily, lispro sliding scale - correct regimen ordered: Lantus 20 units daily--change to 10 units q12 since eating inconsistently, low-dose sliding scale with meals and bedtime. Add mealtime insulin if tolerating meals -will closely monitor patient's blood sugar trends. Will likely need several adjustments throughout her hospitalization -Follows with endocrinology outpatient. Planning an insulin pump. Previously counted calories but not currently, just uses a sliding scale at home --Dextrose fluids if needed (6) Acute pain: Code(s): R52 - Pain, unspecified Status: Acute Assessment and Plan: Patient reports pain generalized to abdomen. Same pain as last admission, worsens with tube feeds but doesn't feel it is related to gastroparesis Plan Diet: Diabetic for pleasure feeds/nocturnal tube feeds GI prophylaxis: Pantoprazole DVT prophylaxis: Heparin subQ lines/drains: Port-A-Cath left chest, tunneled dialysis catheter to right chest, GJ tube Fluids: s/p 500 mL NS bolus Code status: Janitorial Services Supervisor Spent With Patient Time: 57 minutes Spoke with nephrology, credit reporter, patient's nurse, and had a long conversation with the patient. Subjective Date/time seen: 02/23/25 10:12 Interval history: Blood pressure elevated to 201/115 this morning. Repeat blood pressure 137/82 tonight Changed Vitals q4 overnight blood sguars 45<110<185<310>240 Noon blood sugar 86. Check blood sugar at 2pm. Ate a small amount for lunch, mashed potatoes. But refusing tube feeds for now Decreasing dilaudid from 1mg to 0.5mg. Offered a GUM SCORING MACHINE OPERATOR pump and she declined for now. Discussed with her that she is high risk with high dose opiates and GUM SCORING MACHINE OPERATOR would be safer. Also to help reduce her overall dose of opiates with gastroparesis Planning no escalation of opiates unless she wishes to try a GUM SCORING MACHINE OPERATOR pump Dilaudid 0.2mg q15 prn Adding ambien hs for sleep. She felt this was helpful for her last admission for nausea Review of Systems Review of Systems: All systems reviewed & are unremarkable except as noted in HPI and below Exam Narrative: GENERAL: Appears uncomfortable HEAD: Normocephalic, atraumatic. EYES: PERRLA. Conjunctivae clear. NOSE: Normal no drainage. THROAT: Pharynx clear, no exudate. NECK: Trachea midline. No adenopathy, no masses. CHEST: Left-sided Port-A-Cath in place, right-sided tunnel catheter in place RESPIRATORY: Airway patent, respirations nonlabored. CTA. CARDIOVASCULAR: Regular rate and rhythm BREASTS: Defer GASTROINTESTINAL: Abdomen is soft and generalized tenderness. No organomegaly. Bowel sounds normal in all quadrants. GJ tube in place GENITOURINARY: Defer MUSCULOSKELETAL: Moves all extremities. No gross deformities. SKIN: Warm, dry, normal color. NEURO: A&O X4. Speech clear PSYCHIATRIC: Normal interaction Objective Data Vital Signs Vital Signs: Vital Signs - 24 hr 02/22/25 10:15 02/22/25 10:46 02/22/25 11:01 Temperature Pulse Rate 116 H 119 H 123 H Respiratory Rate 20 17 20 Blood Pressure 199/127 H 216/135 H 214/136 H Pulse Oximetry 97 100 100 Oxygen Delivery 02/22/25 11:16 02/22/25 11:27 02/22/25 11:31 Temperature Pulse Rate 114 H 113 H 113 H Respiratory Rate 17 17 16 Blood Pressure 209/137 H 209/137 H 211/124 H Pulse Oximetry 100 100 100 Oxygen Delivery 02/22/25 11:34 02/22/25 11:46 02/22/25 12:01 Temperature Pulse Rate 114 H 113 H 118 H Respiratory Rate 16 16 20 Blood Pressure 211/124 H 215/129 H 211/134 H Pulse Oximetry 100 100 100 Oxygen Delivery 02/22/25 12:16 02/22/25 12:31 02/22/25 12:46 Temperature Pulse Rate 114 H 116 H 118 H Respiratory Rate 20 19 16 Blood Pressure 223/125 H 218/133 H 210/129 H Pulse Oximetry 100 100 100 Oxygen Delivery 02/22/25 13:01 02/22/25 13:15 02/22/25 13:16 Temperature Pulse Rate 111 H 100 108 H Respiratory Rate 20 16 20 Blood Pressure 213/123 H 196/108 H 196/108 H Pulse Oximetry 100 100 98 Oxygen Delivery 02/22/25 15:01 02/22/25 15:31 02/22/25 16:01 Temperature Pulse Rate 106 H 105 H 106 H Respiratory Rate 19 15 14 Blood Pressure 206/113 H 199/117 H 192/105 H Pulse Oximetry 100 99 97 Oxygen Delivery 02/22/25 17:01 02/22/25 17:33 02/22/25 18:43 Temperature Pulse Rate 100 104 H Respiratory Rate 14 12 Blood Pressure 185/101 H 187/108 H Pulse Oximetry 96 100 Oxygen Delivery Room Air 02/22/25 20:42 02/23/25 04:09 02/23/25 09:07 Temperature 97.2 F L 97.9 F Pulse Rate 91 9 L 96 Respiratory Rate 16 16 Blood Pressure 187/110 H 201/115 H Pulse Oximetry 100 100 Oxygen Delivery 02/23/25 09:09 Temperature Pulse Rate 96 Respiratory Rate Blood Pressure Pulse Oximetry Oxygen Delivery Intake/Output Intake/Output: Intake & Output 02/20/25 02/21/25 02/22/25 02/23/25 23:59 23:59 23:59 23:59 Intake Total 500 545 Balance 500 545 Meds/Results Medications: Active Medications Generic Name Dose Route Start Last Admin Trade Name Freq PRN Reason Stop Dose Admin Acetaminophen 650 mg 02/22/25 16:24 Acetaminophen 325 Mg Tablet PO Q4H PRN Mild Pain (1-3) or Fever Amlodipine Besylate 10 mg 02/23/25 09:00 02/23/25 09:10 Amlodipine Besylate 10 Mg Tablet PO 10 mg DAILY JAYME Administration Carvedilol 12.5 mg 02/22/25 21:00 02/23/25 09:09 Carvedilol 12.5 Mg Tablet PO 12.5 mg Q12H JAYME Administration Dextrose 12.5 gm 02/22/25 16:24 02/22/25 20:52 Dextrose 50% 25 Gm/50 Ml Syringe IV PUSH 12.5 gm PRN PRN Administration Hypoglycemia Protocol Dextrose 12.5 gm 02/22/25 18:57 Dextrose 50% 25 Gm/50 Ml Syringe IV PUSH PRN PRN Hypoglycemia Protocol Diphenhydramine HCl 25 mg 02/22/25 18:51 02/23/25 07:52 Diphenhydramine Hcl Inj 50 Mg/Ml Vial IV PUSH 25 mg Q4H PRN Administration Nausea And Vomiting Escitalopram Oxalate 10 mg 02/23/25 09:00 02/23/25 09:09 Escitalopram Oxalate 10 Mg Tablet PO 10 mg DAILY JAYME Administration Gabapentin 100 mg 02/22/25 19:05 02/23/25 09:09 Gabapentin 100 Mg Capsule PO 100 mg TID JAYME Administration Glucagon 1 mg 02/22/25 16:24 Glucagon For Inj 1 Mg Vial IM PRN PRN Hypoglycemia Protocol Glucagon 1 mg 02/22/25 18:57 Glucagon For Inj 1 Mg Vial IM PRN PRN Hypoglycemia Protocol Glucose 15 gm 02/22/25 16:24 Glucose Oral Gel 15 Gm Of Glucse In 37.5 Gm Tube PO PRN PRN Hypoglycemia Protocol Glucose 15 gm 02/22/25 18:57 Glucose Oral Gel 15 Gm Of Glucse In 37.5 Gm Tube PO PRN PRN Hypoglycemia Protocol Heparin Sodium (Beef Lung) 50 units 02/23/25 09:00 02/23/25 09:11 Heparin Flush 50 Units/5 Ml Syringe IV PUSH 50 units QAM JAMYE Administration Heparin Sodium (Beef Lung) 50 units 02/22/25 10:10 Heparin Flush 50 Units/5 Ml Syringe IV PUSH PRN PRN after intermittent infusion Heparin Sodium (Beef Lung) 50 units 02/22/25 10:10 Heparin Flush 50 Units/5 Ml Syringe IV PUSH PRN PRN after blood draws Heparin Sodium (Porcine) 500 units 02/22/25 10:10 Heparin Sodium Lock Flush 500 Units/5 Ml Syringe IV PUSH PRN PRN see comments below Heparin Sodium (Porcine) 5,000 units 02/22/25 22:00 02/23/25 03:35 Heparin Sodium 5,000 Units/Ml Vial SUB-Q Not Given Q8HR JAYME Hydromorphone HCl 1 mg 02/22/25 16:24 02/23/25 09:12 Hydromorphone Hcl Inj (*Crx) 1 Mg/Ml Syr IV PUSH 1 mg Q4H PRN Administration Pain Rated 7-10 Dextrose 1,000 mls @ 100 mls/hr 02/22/25 16:24 Dextrose 5% 1,000 Ml IVPB PRN PRN Hypoglycemia Protocol Dextrose 1,000 mls @ 100 mls/hr 02/22/25 18:57 Dextrose 5% 1,000 Ml IVPB PRN PRN Hypoglycemia Protocol Insulin Aspart 2 - 5 units 02/23/25 08:00 02/23/25 08:59 Insulin Aspart (*Bkc) 100 Units/Ml SUB-Q 2 units TIDWM JAYME Administration Protocol Insulin Aspart 1 - 2 units 02/22/25 21:00 02/22/25 20:59 Insulin Aspart (*Bkc) 100 Units/Ml SUB-Q Not Given HS JAYME Protocol Insulin Glargine 20 units 02/23/25 09:00 02/23/25 09:02 Insulin Glargine (*Bkc) 100 Units/Ml SUB-Q 20 units DAILY JAYME Administration Isosorbide Mononitrate 30 mg 02/23/25 09:00 02/23/25 09:09 Isosorbide Mononitrate 30 Mg Tab.Er.24h PO 30 mg QAM JAYME Administration Losartan Potassium 25 mg 02/23/25 09:00 02/23/25 09:09 Losartan Potassium 25 Mg Tablet PO 25 mg DAILY JAYME Administration Metoprolol Succinate 200 mg 02/23/25 09:00 02/23/25 09:07 Metoprolol Succinate Ext Rel 100 Mg Tabcr PO 200 mg DAILY JAYME Administration Ondansetron HCl 4 mg 02/22/25 16:24 Ondansetron Inj 4 Mg/2 Ml Vial IV PUSH Q4H PRN Nausea Pantoprazole Sodium 40 mg 02/23/25 09:00 02/23/25 09:09 Pantoprazole 40 Mg Tablet PO 40 mg QAM JAYME Administration Sodium Chloride 10 ml 02/22/25 14:00 02/23/25 03:33 Central Line Flush IV PUSH 10 ml Q8HR JAYME Administration Radiology Results: ITS Impressions Chest X-Ray 02/22/25 13:31 IMPRESSION: 1. No acute cardiopulmonary findings given portable technique. Abdomen/Pelvis CT 02/22/25 13:41 IMPRESSION: 1. Mild wall thickening in the small and large bowel as well as the distal esophagus could be associated with third spacing; early or mild inflammatory or infectious changes may have a similar appearance. Correlate clinically. 2. The urinary bladder is mildly distended. No acute surgical abnormality identified. 3. Slightly improved aeration in the left lung base. Labs Labs: Laboratory Results - last 24 hr 02/22/25 02/22/25 02/22/25 10:07 10:08 10:20 WBC 5.5 RBC 4.55 Hgb 12.9 Hct 40.2 MCV 88.4 D MCH 28.4 MCHC 32.1 RDW 15.7 H Plt Count 239 MPV 10.4 Immature Gran % (Auto) 0.2 Neut % (Auto) 69.6 Lymph % (Auto) 22.0 Harrison % (Auto) 6.6 Eos % (Auto) 1.1 Baso % (Auto) 0.5 Lymph # (Auto) 1.20 Harrison # (Auto) 0.4 Eos # (Auto) 0.1 Baso # (Auto) 0.0 Abs Immat Gran (auto) 0.01 Absolute Neuts (auto) 3.8 Absolute Nucleated RBC 0.000 Nucleated RBC % 0.0 Sodium 136 L Potassium 5.2 H Chloride 98 Carbon Dioxide 19 L Anion Gap 19 H BUN 35 H D Creatinine 7.61 H Estim Creat Clear Calc 9 Estimated GFR 6 L Glucose 171 H POC Capillary Glucose Calcium 8.3 L Phosphorus 5.9 H Magnesium 2.3 Total Bilirubin 1.1 AST 49 H ALT 119 H Alkaline Phosphatase 221 H Total Protein 8.4 H Albumin 4.8 Lipase 63 Beta-Hydroxybutyrate/Acetoacetate 4.02 H Serum HCG, Qual Negative Urine Color Urine Appearance Urine pH Ur Specific [place] Urine Protein Urine Glucose (UA) Urine Ketones Ur Blood (Man) Urine Nitrate Urine Bilirubin Urine Urobilinogen Add Ur Microanalysis Leukocyte Esterase Rfl Urine RBC Urine WBC Ur Squamous Epith Cells Urine Bacteria Urine Casts Nasal MRSA (PCR) Influenza A (RT-PCR) Influenza B (RT-PCR) SARS-CoV-2 RNA (RT-PCR) 02/22/25 02/22/25 02/22/25 12:30 13:51 17:27 WBC RBC Hgb Hct MCV MCH MCHC RDW Plt Count MPV Immature Gran % (Auto) Neut % (Auto) Lymph % (Auto) [place] % (Auto) Eos % (Auto) Baso % (Auto) Lymph # (Auto) Harrison # (Auto) Eos # (Auto) Baso # (Auto) Abs Immat Gran (auto) Absolute Neuts (auto) Absolute Nucleated RBC Nucleated RBC % Sodium Potassium Chloride Carbon Dioxide Anion Gap BUN Creatinine Estim Creat Clear Calc Estimated GFR Glucose POC Capillary Glucose 38 L* Calcium Phosphorus Magnesium Total Bilirubin AST ALT Alkaline Phosphatase Total Protein Albumin Lipase Beta-Hydroxybutyrate/Acetoacetate Serum HCG, Qual Urine Color Yellow Urine Appearance Clear Urine pH 7.5 Ur Specific [place] 1.017 Urine Protein 4+ H Urine Glucose (UA) 2+ H Urine Ketones Trace H Ur Blood (Man) 1+ H Urine Nitrate Negative Urine Bilirubin Negative Urine Urobilinogen 0.2 Add Ur Microanalysis Reviewed Leukocyte Esterase Rfl Trace H Urine RBC 11-20 H Urine WBC 6-10 H Ur Squamous Epith Cells Few Urine Bacteria Rare Urine Casts >20 Nasal MRSA (PCR) Influenza A (RT-PCR) Negative Influenza B (RT-PCR) Negative SARS-CoV-2 RNA (RT-PCR) Negative 02/22/25 02/22/25 02/22/25 18:01 18:53 20:46 WBC RBC Hgb Hct MCV MCH MCHC RDW Plt Count MPV Immature Gran % (Auto) Neut % (Auto) Lymph % (Auto) [place] % (Auto) Eos % (Auto) Baso % (Auto) Lymph # (Auto) [place] # (Auto) Eos # (Auto) Baso # (Auto) Abs Immat Gran (auto) Absolute Neuts (auto) Absolute Nucleated RBC Nucleated RBC % Sodium Potassium Chloride Carbon Dioxide Anion Gap BUN Creatinine Estim Creat Clear Calc Estimated GFR Glucose POC Capillary Glucose 109 H 45 L* Calcium Phosphorus Magnesium Total Bilirubin AST ALT Alkaline Phosphatase Total Protein Albumin Lipase Beta-Hydroxybutyrate/Acetoacetate Serum HCG, Qual Urine Color Urine Appearance Urine pH Ur Specific [place] Urine Protein Urine Glucose (UA) Urine Ketones Ur Blood (Man) Urine Nitrate Urine Bilirubin Urine Urobilinogen Add Ur Microanalysis Leukocyte Esterase Rfl Urine RBC Urine WBC Ur Squamous Epith Cells Urine Bacteria Urine Casts Nasal MRSA (PCR) Not detected Influenza A (RT-PCR) Influenza B (RT-PCR) SARS-CoV-2 RNA (RT-PCR) 02/22/25 02/23/25 02/23/25 21:09 00:38 03:35 WBC RBC Hgb Hct MCV MCH MCHC RDW Plt Count MPV Immature Gran % (Auto) Neut % (Auto) Lymph % (Auto) [place] % (Auto) Eos % (Auto) Baso % (Auto) Lymph # (Auto) [place] # (Auto) Eos # (Auto) Baso # (Auto) Abs Immat Gran (auto) Absolute Neuts (auto) Absolute Nucleated RBC Nucleated RBC % Sodium Potassium Chloride Carbon Dioxide Anion Gap BUN Creatinine Estim Creat Clear Calc Estimated GFR Glucose POC Capillary Glucose 110 H 185 H 310 H Calcium Phosphorus Magnesium Total Bilirubin AST ALT Alkaline Phosphatase Total Protein Albumin Lipase Beta-Hydroxybutyrate/Acetoacetate Serum HCG, Qual Urine Color Urine Appearance Urine pH Ur Specific [place] Urine Protein Urine Glucose (UA) Urine Ketones Ur Blood (Man) Urine Nitrate Urine Bilirubin Urine Urobilinogen Add Ur Microanalysis Leukocyte Esterase Rfl Urine RBC Urine WBC Ur Squamous Epith Cells Urine Bacteria Urine Casts Nasal MRSA (PCR) Influenza A (RT-PCR) Influenza B (RT-PCR) SARS-CoV-2 RNA (RT-PCR) 02/23/25 07:46 WBC RBC Hgb Hct MCV MCH MCHC RDW Plt Count MPV Immature Gran % (Auto) Neut % (Auto) Lymph % (Auto) [place] % (Auto) Eos % (Auto) Baso % (Auto) Lymph # (Auto) [place] # (Auto) Eos # (Auto) Baso # (Auto) Abs Immat Gran (auto) Absolute Neuts (auto) Absolute Nucleated RBC Nucleated RBC % Sodium Potassium Chloride Carbon Dioxide Anion Gap BUN Creatinine Estim Creat Clear Calc Estimated GFR Glucose POC Capillary Glucose 240 H Calcium Phosphorus Magnesium Total Bilirubin AST ALT Alkaline Phosphatase Total Protein Albumin Lipase Beta-Hydroxybutyrate/Acetoacetate Serum HCG, Qual Urine Color Urine Appearance Urine pH Ur Specific [place] Urine Protein Urine Glucose (UA) Urine Ketones Ur Blood (Man) Urine Nitrate Urine Bilirubin Urine Urobilinogen Add Ur Microanalysis Leukocyte Esterase Rfl Urine RBC Urine WBC Ur Squamous Epith Cells Urine Bacteria Urine Casts Nasal MRSA (PCR) Influenza A (RT-PCR) Influenza B (RT-PCR) SARS-CoV-2 RNA (RT-PCR) Quality VTE Prophylaxis VTE prophylaxis: pharmacologic ordered (Patient refusing ) Hospitalist MIPS Advance Care Plan I have confirmed that the patient's Advanced Care Plan is present, code status is documented, or surrogate decision maker is listed in patient medical record.: Yes Medication Reconciliation I have utilized all available resources to obtain, update and review the patients current medications (includes all prescriptions, OTC, herbals, cannabis, and nutritional supplements).: Yes
--- NOTE | 2025-02-23 11:10 | PM.CNNEP ---
Assessment and Plan Assessment and plan (1) End stage renal disease: Code(s): N18.6 - End stage renal disease Status: Chronic Assessment and Plan: HD tomorrow continue //Wednesday dialyis schedule while hospitalized follow electrolytes, volume status, and clearance outpatient dialysis clinic = [facility] in [place] primary allied health teacher = Dr. Odilon Tellez (2) Intractable nausea and vomiting: Code(s): R11.2 - Nausea with vomiting, unspecified Status: Chronic Assessment and Plan: chronic and long standing issue (per patient and review of records) cyclic in nature -- just discharged for this issue 5 days ago... thought to be secondary to diabetic gastroparesis s/p G-J-tube placement to ensure adequate/supplemental nutrition given this issue continue instituted therapy (3) Diabetic gastroparesis: Code(s): E11.43 - Type 2 diabetes mellitus with diabetic autonomic (poly)neuropathy; K31.84 - Gastroparesis Status: Chronic Assessment and Plan: known and long standing issue likely precipiting factor for admission symptoms (4) Anemia: Code(s): D64.9 - Anemia, unspecified Status: Chronic Assessment and Plan: due to ESRD H/H supratherapeutic at this time hold Epogen with HD for now follow trend of H/H (5) Hypertension: Qualifiers: Hypertension type: primary hypertension Qualified Code(s): I10 - Essential (primary) hypertension Code(s): I10 - Essential (primary) hypertension Status: Chronic Assessment and Plan: quite elevated on admission doing better now resume home medications may need PRN IV medications given #2 follow trend of hemodynamics (6) Type 1 diabetes: Qualifiers: Diabetes mellitus complication status: with hyperglycemia Qualified Code(s): E10.65 - Type 1 diabetes mellitus with hyperglycemia Code(s): E10.9 - Type 1 diabetes mellitus without complications Status: Chronic Assessment and Plan: follow accu-cheks glycemic control per hospitalist I will continue to follow the patient with you while she remains hospitalized and make further recommendations as deemed necessary. Thank you for allowing me to participate in the care of this patient. History of Present Illness Reason for Consult Consult date: 02/23/25 Reason for consult: end stage renal disease Chief Complaint Chief complaint: Intractable Abd Pain & Nausea History of Present Illness Narrative: The patient is a 29-year-old female with extensive past medical history as outlined below who presented to [facility] Emergency Room with nausea and vomiting. The patient has a somewhat long extensive history of protracted nausea and vomiting secondary to her poorly-controlled diabetic gastroparesis. She was just recently discharged from [facility] about 5 days ago for the same symptoms. During that hospital stay, the focus of therapy was symptom control which was unfortunately complicated by the fact that the only apparent medications that seemed to help with her symptoms are IV Benadryl and IV Dilaudid. There has been some concern for possible drug-seeking behavior with regard to her use of IV Benadryl and IV Dilaudid on previous hospitalizations at [facility] in [place]. Following her discharge from here at [facility] several days ago, she had recurrence of her nausea and vomiting which progressively worsened until she finally decided come to the emergency room for further assessment. Workup and evaluation emergency room demonstrated the patient to be somewhat hypertensive and tachycardic but otherwise afebrile. Routine testing was noteworthy for no leukocytosis, anemia, or thrombocytopenia and chemistry panel consistent with her known history of ESRD, chronic transaminitis as well as hyperglycemia. Her chest x-ray with no acute cardiopulmonary findings and a subsequent CT of the abdomen/pelvis showed mild wall thickening in the small intestine, large bowel, distal esophagus that could be associated with 3rd spacing however, earlier mild inflammatory infectious changes could look similar with mild wrinary bladder mildly distended. despite multiple interventions in the emergency room to control her nausea and vomiting as well as abdominal pain, the symptoms continued to persist and hence she was subsequently admitted to the hospital for further evaluation therapy. Renal consultation was requested due to her end-stage renal disease. The patient normally dialyzes on a Wednesday, , Wednesday schedule at [facility] under the care of Dr. Odilon Tellez. She states that she has been on dialysis for about a year or so and that her kidney disease is secondary to her type 1 diabetes. Her last dialysis treatment was on Wednesday (01/27) by report. As already mentioned above, she has had multiple admissions for nausea and cyclic vomiting in association with a diabetic gastroparesis as well as diabetic ketoacidosis with her most recent hospitalization here at [facility] with subsequent discharge about 4-5 days ago as noted above. Currently, the time my evaluation, she is resting comfortably and in no acute distress. Review of Systems Review of Systems: As per HPI. [facility] Past Medical History Medical History (Updated 02/23/25 @ 15:51 by Grace Collins APRN) Anemia in chronic kidney disease Port-A-Cath in place Type 1 diabetes Diagnosed at age 7 Diabetic gastroparesis Depression Surgical History Surgical History S/P dialysis catheter insertion (~2022) Status post insertion of percutaneous endoscopic gastrostomy (PEG) tube For gastric drainage Status post jejunostomy (12/2024) For feeds History of cholecystectomy Family History Family History Other Family history of cardiovascular disease Social History Social History Social History: She is not and does not have any children. She lives with her mother and is on disability. She is a lifelong nonsmoker and does not drink alcohol or use illicit substances. Code status: Full code Surrogate decision maker: Mother Smoking status: Never smoker Alcohol intake: never Substance use: never Substance use type: does not use Lack of Transportation: No Lack of Food: Never True Current Housing: I Have Housing Concerned About Future Housing: No Difficulty Paying Gas/Electric Bills: No Difficulty Paying for Meds: No Currently Unemployed: YES Education: High School Diploma/GED Difficulty w/ Childcare or Family Care: No Gender identity (if verbalized by the patient): Female Spiritual care concerns: No Meds Home Medications and Allergies Home Medications ?Medication ?Instructions ?Recorded ?Confirmed ?Type insulin lispro 100 unit/mL 1 sliding scale dose subcut PRN 06/02/22 02/22/25 History subcutaneous pen losartan 25 mg tablet 25 mg PO DAILY 06/02/22 02/22/25 History amlodipine 10 mg tablet 10 mg PO DAILY 01/01/25 02/22/25 History carvedilol 12.5 mg tablet 12.5 mg PO Q12H 01/01/25 02/22/25 History escitalopram oxalate 10 mg tablet 10 mg PO DAILY 01/01/25 02/22/25 History gabapentin 100 mg capsule 100 mg PO TID 01/01/25 02/22/25 History glucagon 0.5 mg/0.1 mL 0.5 mg subcut PRN PRN hypoglycemia 01/01/25 02/22/25 History subcutaneous auto-injector (Gvoke HypoPen 2-Pack) metoprolol succinate 200 mg 200 mg PO DAILY 01/01/25 02/22/25 History tablet,extended release 24 hr isosorbide mononitrate 30 mg 30 mg PO QAM 30 days #30 tabs 01/05/25 02/22/25 Rx tablet,extended release 24 hr pantoprazole 40 mg tablet,delayed 40 mg PO QAM 30 days #30 tabs 01/05/25 02/22/25 Rx release insulin glargine 100 unit/mL (3 25 unit (0.25 mL) subcut .AM #3 mL 02/16/25 02/22/25 Rx mL) subcutaneous pen (Lantus Solostar U-100 Insulin) ondansetron 4 mg disintegrating 4 mg PO Q6H #60 tabs 02/17/25 02/22/25 Rx tablet Allergies Allergy/AdvReac Type Severity Reaction Status Date / Time metoclopramide (From Reglan) Allergy Intermediate Muscle Verified 02/22/25 18:28 Spasms trimethobenzamide (From Allergy Intermediate hives Verified 02/22/25 18:28 Tigan) hydralazine Allergy Hives Verified 02/22/25 18:28 Vital Signs Vital Signs Temp Pulse Resp BP Pulse Ox O2 Del Method 02/23/25 10:48 98.1 F 85 16 137/82 99 02/23/25 09:07 96 02/23/25 09:00 100 Room Air 02/23/25 04:09 97.9 F 9 L 16 201/115 H 100 02/22/25 20:42 97.2 F L 91 16 187/110 H 100 Exam Narrative: GENERAL APPEARANCE: well developed well nourished female in no acute distress HEENT: normocephalic, atraumatic, normal conjunctiva and sclera, nares patient NECK: no lymphadenopathy, thyromegaly, or JVD MOUTH: normal lips, teeth, and gums CARDIOVASCULAR: RRR, normal S1 and S2, no rub RESPIRATORY: clear to auscultation ABDOMEN: soft, nontender, nondistended, positive bowel sounds present EXTREMITIES: no evidence of cyanosis, clubbing, or edema NEUROLOGICAL: alert and oriented x 3; CN II - XII intact bilaterally; no focal deficits noted Results Lab Results 02/22/25 10:08 02/24/25 06:12 Lab results: Most recent lab results Calcium 8.3 mg/dL (8.4-10.2) L 02/22/25 10:08 Phosphorus 5.9 mg/dL (2.5-4.5) H 02/22/25 10:08 Magnesium 2.3 mg/dL (1.6-2.3) 02/22/25 10:08
[2025-02-23] MEDS: HYDROmorphone HCL INJ (*CRX) 1 MG/ML SYR 0.5 MG IV PUSH ×2 (18:03→22:07)
[2025-02-24] VITALS (22 sets, daily range): BP systolic 107–185; BP diastolic 68–98; PULSE 75–89; RESP 16–20; TEMP 36.4–37.1; O2SAT 97–100
[2025-02-24] MEDS: HYDROmorphone HCL INJ (*CRX) 1 MG/ML SYR 0.5 MG IV PUSH ×6 (02:20→22:57)
[2025-02-24] MEDS: DEXTROSE 50% 25 GM/50 ML SYRINGE IV PUSH (02:37)
--- NOTE | 2025-02-24 03:47 | PC.NURSE ---
At 0227, accucheck was 50, pt asymptomatic. Pt received 25gm D50 per port-a-cath as ordered . Pt continue to refuse tube feeding and she did not want anything by mouth.
[2025-02-24] MEDS: CENTRAL LINE FLUSH 10 ML IV PUSH ×3 (06:13→20:50)
[2025-02-24 06:49] LABS: Albumin Level 3.9 g/dL (3.5-5.1); Anion Gap 14 mmol/L (4-12); Blood Urea Nitrogen 48 mg/dL (7-17); CRP 0.8 mg/dL (<1.0); Calcium 7.4 mg/dL (8.4-10.2); Carbon Dioxide 21 mmol/L (22-30); Chloride 100 mmol/L (98-107); Estimated CRCL calculation 7 ml/min; Estimated Glomerular Filt Rate 5; Glucose 121 mg/dL (65-110); Potassium 5.0 mmol/L (3.4-5.0); Sodium 135 mmol/L (137-145)
[2025-02-24] MEDS: PANTOPRAZOLE 40 MG TABLET PO (08:49)
[2025-02-24] MEDS: GABAPENTIN 100 MG CAPSULE PO ×3 (08:49→17:05)
[2025-02-24] MEDS: ESCITALOPRAM OXALATE 10 MG TABLET PO (08:49)
[2025-02-24] MEDS: ISOSORBIDE MONONITRATE 30 MG TAB.ER.24H PO (08:49)
[2025-02-24] MEDS: LOSARTAN POTASSIUM 25 MG TABLET PO (08:49)
[2025-02-24] MEDS: METOPROLOL SUCCINATE EXT REL 100 MG TABCR 200 MG PO (08:50)
[2025-02-24] MEDS: INSULIN GLARGINE (*BKC) 100 UNITS/ML 10 UNITS SUB-Q (09:08)
--- NOTE | 2025-02-24 09:42 | PM.IMPN ---
Progress Note: A&P Assessment and Plan (1) Intractable nausea and vomiting: Code(s): R11.2 - Nausea with vomiting, unspecified Status: Chronic Assessment and Plan: Secondary to history of chronic nausea and vomiting in a patient with known gastroparesis status post Enterra device and G/J tube. Patient uses the gastric portion of her tube to drain stomach contents. Patient given multiple interventions in the ED totaling 2 mg hydromorphone, 50 mg IVP Benadryl, 20 mg IVP Pepcid, 5 mg haloperidol, 4 mg Zofran. Abdominal pelvic CT shows mild wall thickening in the small intestine, large bowel, distal esophagus that could be associated with 3rd spacing however, earlier mild inflammatory infectious changes could look similar. Intolerances to Reglan, tigan, and avoids compazine. -continue Zofran, diphenhydramine IV push -tube feeds: Start 10ml/hr jejunum tube continuous. Can discuss nocturnal feeds if tolerating -registered dietitian consulted -consider gravity drain or low intermittent suction for gastric tube to help with nausea due to gastroparesis -continue hydromorphone for pain, need to wean because it will worsen gastroparesis, 1mg>0.5mg q4 prn Likely experiencing some tolerance after her recent hospitalization. Not reducing dose today since agreeable to restarting feeds. Plan to reduce to q5prn 01/23, q6 prn on 04/28 -Can offer a Dilaudid ETL DATABASE DEVELOPER pump 0.2mg q15 minutes prn if patient requests. Discussed with her that it would give her the same amount of dilaudid as she can get with 1mg q4 but she preferred the 0.5mg IV pushes for now. Not planning to escalate IV push opiate medications --ambien 2.5hs prn for sleep, feels this was helpful for nausea previously. Did not help this admission (2) Abdominal pain: Code(s): R10.9 - Unspecified abdominal pain Status: Acute Assessment and Plan: Complicated history with limited medication options. Doesn't feel bentyl helps her. Having diarrhea s/p imodium x1 GI consult if not improving. Discussed with her that there are more limited options at this hospital, will need transfer to [place] if not improving Check ESR, CRP Stool studies: H pylori, Stool culture, C-diff Limit opiates with gastroparesis. Offered a ETL DATABASE DEVELOPER but patient declined at this time 02/22/25 CT abd/pelvis 1. Mild wall thickening in the small and large bowel as well as the distal esophagus could be associated with third spacing; early or mild inflammatory or infectious changes may have a similar appearance. Correlate clinically. 2. The urinary bladder is mildly distended. No acute surgical abnormality identified. 3. Slightly improved aeration in the left lung base. (3) Hypertension: Qualifiers: Hypertension type: primary hypertension Qualified Code(s): I10 - Essential (primary) hypertension Code(s): I10 - Essential (primary) hypertension Status: Chronic Assessment and Plan: Patient hypertensive on admit -continue metoprolol succinate 200 mg daily, Coreg 12.5 q12, amlodipine 10 mg daily>7.5mg tomorrow if stable -Has an allergy to hydralazine --If not tolerating pills, can add metoprolol IV (4) End stage renal disease on dialysis: Code(s): N18.6 - End stage renal disease; Z99.2 - Dependence on renal dialysis Status: Chronic Assessment and Plan: ESRD on HD TTS. Patient missed her Wednesday dialysis due to not feeling well. She did have a full makeup session prior to admission -nephrology consulted (5) DKA, type 1: Qualifiers: Diabetes mellitus complication detail: without coma Qualified Code(s): E10.10 - Type 1 diabetes mellitus with ketoacidosis without coma Code(s): E10.10 - Type 1 diabetes mellitus with ketoacidosis without coma Status: Chronic Assessment and Plan: Very brittle type 1 diabetic. Diagnosed at age 7. Follows endocrinology at [place]. Patient has hyperglycemic and hypoglycemic events during hospitalizations. - hypoglycemia protocol - POC blood glucose ACHS and Q 6 as patient eats some through the day and gets tube feeding at night. - home medication: Lantus 25 units daily, lispro sliding scale - correct regimen ordered: Lantus 20 units daily--changed to 10 units q12 since eating inconsistently, was 50 overnight. Decrease to 6 units BID for tonight's dose -- low-dose sliding scale with meals and bedtime. Add mealtime insulin if tolerating meals -will closely monitor patient's blood sugar trends. Will likely need several adjustments throughout her hospitalization -Follows with endocrinology outpatient. Planning an insulin pump. Previously counted calories but not currently, just uses a sliding scale at home --Dextrose fluids if needed (6) Acute pain: Code(s): R52 - Pain, unspecified Status: Acute Assessment and Plan: Patient reports pain generalized to abdomen. Same pain as last admission, worsens with tube feeds but doesn't feel it is related to gastroparesis Plan Diet: Diabetic for pleasure feeds/nocturnal tube feeds GI prophylaxis: Pantoprazole DVT prophylaxis: Heparin subQ lines/drains: Port-A-Cath left chest, tunneled dialysis catheter to right chest, GJ tube Fluids: s/p 500 mL NS bolus Code status: Supervisor Color Paste Mixing Spent With Patient Time: 59 minutes Subjective Date/time seen: 02/24/25 09:42 Interval history: Blood sugar 50 last night, improved today Reports nausea worse today but no vomiting and was able to eat a few bites this morning. Agreed to start tube feeds at 10/hr Blood pressures still elevated overnight but significantly improved this morning Planning no escalation of opiates unless she wishes to try a ETL DATABASE DEVELOPER pump Dilaudid 0.2mg q15 prn RN reports she sets her alarm for opiates and bendryl Didn't feel ambien was helping. Review of Systems Review of Systems: All systems reviewed & are unremarkable except as noted in HPI and below Exam Narrative: GENERAL: Appears uncomfortable HEAD: Normocephalic, atraumatic. EYES: PERRLA. Conjunctivae clear. NOSE: Normal no drainage. THROAT: Pharynx clear, no exudate. NECK: Trachea midline. No adenopathy, no masses. CHEST: Left-sided Port-A-Cath in place, right-sided tunnel catheter in place RESPIRATORY: Airway patent, respirations nonlabored. CTA. CARDIOVASCULAR: Regular rate and rhythm BREASTS: Defer GASTROINTESTINAL: Abdomen is soft and generalized tenderness. No organomegaly. Bowel sounds normal in all quadrants. GJ tube in place GENITOURINARY: Defer MUSCULOSKELETAL: Moves all extremities. No gross deformities. SKIN: Warm, dry, normal color. NEURO: A&O X4. Speech clear PSYCHIATRIC: Normal interaction Objective Data Vital Signs Vital Signs: Vital Signs - 24 hr 02/23/25 14:48 02/23/25 20:00 02/23/25 20:30 Temperature 98.1 F 98.1 F Pulse Rate 85 84 84 Respiratory Rate 16 20 Blood Pressure 137/82 170/98 H Pulse Oximetry 99 100 Oxygen Delivery 02/23/25 20:35 02/24/25 00:00 02/24/25 05:09 Temperature 98.8 F 97.5 F L Pulse Rate 89 83 Respiratory Rate 20 20 Blood Pressure 176/90 H 176/97 H Pulse Oximetry 97 100 Oxygen Delivery Room Air 02/24/25 08:50 02/24/25 08:50 Temperature Pulse Rate 84 84 Respiratory Rate Blood Pressure Pulse Oximetry Oxygen Delivery Intake/Output Intake/Output: Intake & Output 02/21/25 02/22/25 02/23/25 02/24/25 23:59 23:59 23:59 23:59 Intake Total 500 1945 150 Balance 500 1945 150 Meds/Results Medications: Active Medications Generic Name Dose Route Start Last Admin Trade Name Freq PRN Reason Stop Dose Admin Acetaminophen 650 mg 02/22/25 16:24 Acetaminophen 325 Mg Tablet PO Q4H PRN Mild Pain (1-3) or Fever Amlodipine Besylate 10 mg 02/23/25 09:00 02/24/25 08:49 Amlodipine Besylate 10 Mg Tablet PO 10 mg DAILY JAYME Administration Carvedilol 12.5 mg 02/22/25 21:00 02/24/25 08:50 Carvedilol 12.5 Mg Tablet PO 12.5 mg Q12H JAYME Administration Dextrose 12.5 gm 02/22/25 16:24 02/24/25 02:37 Dextrose 50% 25 Gm/50 Ml Syringe IV PUSH 12.5 gm PRN PRN Administration Hypoglycemia Protocol Dextrose 12.5 gm 02/22/25 18:57 Dextrose 50% 25 Gm/50 Ml Syringe IV PUSH PRN PRN Hypoglycemia Protocol Diphenhydramine HCl 25 mg 02/22/25 18:51 02/24/25 08:48 Diphenhydramine Hcl Inj 50 Mg/Ml Vial IV PUSH 25 mg Q4H PRN Administration Nausea And Vomiting Escitalopram Oxalate 10 mg 02/23/25 09:00 02/24/25 08:49 Escitalopram Oxalate 10 Mg Tablet PO 10 mg DAILY JAYME Administration Gabapentin 100 mg 02/22/25 19:05 02/24/25 08:49 Gabapentin 100 Mg Capsule PO 100 mg TID JAYME Administration Glucagon 1 mg 02/22/25 16:24 Glucagon For Inj 1 Mg Vial IM PRN PRN Hypoglycemia Protocol Glucagon 1 mg 02/22/25 18:57 Glucagon For Inj 1 Mg Vial IM PRN PRN Hypoglycemia Protocol Glucose 15 gm 02/22/25 16:24 Glucose Oral Gel 15 Gm Of Glucse In 37.5 Gm Tube PO PRN PRN Hypoglycemia Protocol Glucose 15 gm 02/22/25 18:57 Glucose Oral Gel 15 Gm Of Glucse In 37.5 Gm Tube PO PRN PRN Hypoglycemia Protocol Heparin Sodium (Beef Lung) 50 units 02/23/25 09:00 02/24/25 08:51 Heparin Flush 50 Units/5 Ml Syringe IV PUSH 50 units QAM JAYME Administration Heparin Sodium (Beef Lung) 50 units 02/22/25 10:10 Heparin Flush 50 Units/5 Ml Syringe IV PUSH PRN PRN after intermittent infusion Heparin Sodium (Beef Lung) 50 units 02/22/25 10:10 Heparin Flush 50 Units/5 Ml Syringe IV PUSH PRN PRN after blood draws Heparin Sodium (Porcine) 500 units 02/22/25 10:10 Heparin Sodium Lock Flush 500 Units/5 Ml Syringe IV PUSH PRN PRN see comments below Heparin Sodium (Porcine) 5,000 units 02/22/25 22:00 02/24/25 05:48 Heparin Sodium 5,000 Units/Ml Vial SUB-Q Not Given Q8HR JAYME Hydromorphone HCl 0.5 mg 02/23/25 14:16 02/24/25 06:41 Hydromorphone Hcl Inj (*Crx) 1 Mg/Ml Syr IV PUSH 0.5 mg Q4H PRN Administration Pain Rated 7-10 Dextrose 1,000 mls @ 100 mls/hr 02/22/25 16:24 Dextrose 5% 1,000 Ml IVPB PRN PRN Hypoglycemia Protocol Dextrose 1,000 mls @ 100 mls/hr 02/22/25 18:57 Dextrose 5% 1,000 Ml IVPB PRN PRN Hypoglycemia Protocol Albumin Human 50 mls @ 999 mls/hr 02/24/25 05:54 Albutein IVPB Q10M PRN HYPOTENSION Insulin Aspart 2 - 5 units 02/23/25 08:00 02/24/25 08:51 Insulin Aspart (*Bkc) 100 Units/Ml SUB-Q Not Given [facility] Protocol Insulin Aspart 1 - 2 units 02/22/25 21:00 02/23/25 21:58 Insulin Aspart (*Bkc) 100 Units/Ml SUB-Q Not Given HS JAYME Protocol Insulin Glargine 10 units 02/24/25 09:00 02/24/25 09:08 Insulin Glargine (*Bkc) 100 Units/Ml SUB-Q 10 units Q12H JAYME Administration Isosorbide Mononitrate 30 mg 02/23/25 09:00 02/24/25 08:49 Isosorbide Mononitrate 30 Mg Tab.Er.24h PO 30 mg QAM JAYME Administration Losartan Potassium 25 mg 02/23/25 09:00 02/24/25 08:49 Losartan Potassium 25 Mg Tablet PO 25 mg DAILY JAYME Administration Metoprolol Succinate 200 mg 02/23/25 09:00 02/24/25 08:50 Metoprolol Succinate Ext Rel 100 Mg Tabcr PO 200 mg DAILY JAYME Administration Ondansetron HCl 4 mg 02/22/25 16:24 Ondansetron Inj 4 Mg/2 Ml Vial IV PUSH Q4H PRN Nausea Pantoprazole Sodium 40 mg 02/23/25 09:00 02/24/25 08:49 Pantoprazole 40 Mg Tablet PO 40 mg QAM JAYME Administration Sodium Chloride 10 ml 02/22/25 14:00 02/24/25 06:13 Central Line Flush IV PUSH 10 ml Q8HR JAYME Administration Zolpidem Tartrate 2.5 mg 02/23/25 14:18 Zolpidem Tartrate (*Crx) 2.5 Mg Tablet PO HS PRN Insomnia Radiology Results: ITS Impressions Chest X-Ray 02/22/25 13:31 IMPRESSION: 1. No acute cardiopulmonary findings given portable technique. Abdomen/Pelvis CT 02/22/25 13:41 IMPRESSION: 1. Mild wall thickening in the small and large bowel as well as the distal esophagus could be associated with third spacing; early or mild inflammatory or infectious changes may have a similar appearance. Correlate clinically. 2. The urinary bladder is mildly distended. No acute surgical abnormality identified. 3. Slightly improved aeration in the left lung base. Labs Labs: Laboratory Results - last 24 hr 02/23/25 02/23/25 02/23/25 11:47 17:27 21:51 ESR Sodium Potassium Chloride Carbon Dioxide Anion Gap BUN Creatinine Estim Creat Clear Calc Estimated GFR Glucose POC Capillary Glucose 86 93 154 H Calcium Phosphorus C-Reactive Protein Albumin 02/24/25 02/24/25 02/24/25 02:27 03:00 06:12 ESR 36 H Sodium 135 L Potassium Chloride Carbon Dioxide Anion Gap BUN Creatinine Estim Creat Clear Calc Estimated GFR Glucose POC Capillary Glucose 50 L* 174 H Calcium Phosphorus C-Reactive Protein Albumin 02/24/25 02/24/25 02/24/25 06:12 06:12 06:12 ESR Sodium Cancelled Potassium 5.0 Cancelled Chloride 100 Cancelled Carbon Dioxide 21 L Anion Gap BUN Creatinine Estim Creat Clear Calc Estimated GFR Glucose POC Capillary Glucose Calcium Phosphorus C-Reactive Protein Albumin 02/24/25 02/24/25 02/24/25 06:12 06:12 06:12 ESR Sodium Potassium Chloride Carbon Dioxide Cancelled Anion Gap 14 H Cancelled BUN 48 H D Cancelled Creatinine 9.93 H Estim Creat Clear Calc Estimated GFR Glucose POC Capillary Glucose Calcium Phosphorus C-Reactive Protein Albumin 02/24/25 02/24/25 02/24/25 06:12 06:12 06:12 ESR Sodium Potassium Chloride Carbon Dioxide Anion Gap BUN Creatinine Cancelled Estim Creat Clear Calc 7 Cancelled Estimated GFR 5 L Cancelled Glucose 121 H POC Capillary Glucose Calcium Phosphorus C-Reactive Protein Albumin 02/24/25 02/24/25 02/24/25 06:12 06:12 06:12 ESR Sodium Potassium Chloride Carbon Dioxide Anion Gap BUN Creatinine Estim Creat Clear Calc Estimated GFR Glucose Cancelled POC Capillary Glucose Calcium 7.4 L Cancelled Phosphorus 8.8 H Cancelled C-Reactive Protein 0.8 Albumin 3.9 02/24/25 02/24/25 02/24/25 06:12 06:27 08:14 ESR Sodium Potassium Chloride Carbon Dioxide Anion Gap BUN Creatinine Estim Creat Clear Calc Estimated GFR Glucose POC Capillary Glucose 116 H 103 Calcium Phosphorus C-Reactive Protein Albumin Cancelled Quality VTE Prophylaxis VTE prophylaxis: pharmacologic ordered (Patient refusing ) Hospitalist [facility] Advance Care Plan I have confirmed that the patient's Advanced Care Plan is present, code status is documented, or surrogate decision maker is listed in patient medical record.: Yes Medication Reconciliation I have utilized all available resources to obtain, update and review the patients current medications (includes all prescriptions, OTC, herbals, cannabis, and nutritional supplements).: Yes
--- NOTE | 2025-02-24 13:12 | P.PNNP_ITS ---
Progress Note: A&P Assessment and Plan (1) End stage renal disease: Code(s): N18.6 - End stage renal disease Status: Chronic Assessment and Plan: * HD Today * continue //Wednesday dialyis schedule while hospitalized * volume status looks okay * potassium is 5 * will do dialysis today. we will not remove any fluid. Discussed with Parag. * outpatient dialysis clinic = [facility] in [place] * primary center machine set up operator = Dr. Odilon Tellez (2) Intractable nausea and vomiting: Code(s): R11.2 - Nausea with vomiting, unspecified Status: Chronic Assessment and Plan: * chronic and long standing issue (per patient and review of records) * cyclic in nature -- just discharged for this issue 5 days ago... * thought to be secondary to diabetic gastroparesis * s/p G-J-tube placement to ensure adequate/supplemental nutrition given this issue * continue instituted therapy (3) Diabetic gastroparesis: Code(s): E11.43 - Type 2 diabetes mellitus with diabetic autonomic (poly)neuropathy; K31.84 - Gastroparesis Status: Chronic Assessment and Plan: * known and long standing issue * likely precipiting factor for admission symptoms (4) Anemia: Code(s): D64.9 - Anemia, unspecified Status: Chronic Assessment and Plan: * due to ESRD * H/H supratherapeutic at this time * hold Epogen with HD for now * no CBC done today. Will check 1 tomorrow * hemoglobin has been above 11 (5) Hypertension: Qualifiers: Hypertension type: primary hypertension Qualified Code(s): I10 - Essential (primary) hypertension Code(s): I10 - Essential (primary) hypertension Status: Chronic Assessment and Plan: * quite elevated on admission * doing better now * resume home medications * blood pressure is 107 to * follow trend of hemodynamics (6) Type 1 diabetes: Qualifiers: Diabetes mellitus complication status: with hyperglycemia Qualified Code(s): E10.65 - Type 1 diabetes mellitus with hyperglycemia Code(s): E10.9 - Type 1 diabetes mellitus without complications Status: Chronic Assessment and Plan: * follow accu-cheks * glycemic control per hospitalist Subjective Date/time seen: 02/24/25 13:12 Interval history: Nory is feeling okay just coming back from the bathroom she said that she weighed this morning is under her dry weight. He does not have any swelling or shortness of breath. Review of Systems Cardiovascular: Cardiovascular: Reports no additional cardiovascular complaints Respiratory: Respiratory: Reports no additional respiratory complaints Gastrointestinal: Gastrointestinal: Reports no additional gastrointestinal complaints Genitourinary: Genitourinary: Reports no additional female genitourinary complaints Exam Narrative: WDWN in NAD skin no rash head ncat lungs clear cor reg no rub abd BS+ nontender and soft ext no edema. Objective Data Vital Signs Vital Signs: Vital Signs - 24 hr 02/23/25 14:48 02/23/25 20:00 02/23/25 20:30 Temperature 98.1 F 98.1 F Pulse Rate 85 84 84 Respiratory Rate 16 20 Blood Pressure 137/82 170/98 H Pulse Oximetry 99 100 Oxygen Delivery 02/23/25 20:35 02/24/25 00:00 02/24/25 05:09 Temperature 98.8 F 97.5 F L Pulse Rate 89 83 Respiratory Rate 20 20 Blood Pressure 176/90 H 176/97 H Pulse Oximetry 97 100 Oxygen Delivery Room Air 02/24/25 08:00 02/24/25 08:50 02/24/25 08:50 Temperature 97.5 F L Pulse Rate 75 84 84 Respiratory Rate 18 Blood Pressure 107/68 Pulse Oximetry 98 Oxygen Delivery Intake/Output Intake/Output: Intake & Output 02/21/25 02/22/25 02/23/25 02/24/25 23:59 23:59 23:59 23:59 Intake Total 500 1945 630 Balance 500 1945 630 Meds/Results Medications: Active Medications Generic Name Dose Route Start Last Admin Trade Name Freq PRN Reason Stop Dose Admin Acetaminophen 650 mg 02/22/25 16:24 Acetaminophen 325 Mg Tablet PO Q4H PRN Mild Pain (1-3) or Fever Amlodipine Besylate 10 mg 02/23/25 09:00 02/24/25 08:49 Amlodipine Besylate 10 Mg Tablet PO 10 mg DAILY JAYME Administration Carvedilol 12.5 mg 02/22/25 21:00 02/24/25 08:50 Carvedilol 12.5 Mg Tablet PO 12.5 mg Q12H JAYME Administration Dextrose 12.5 gm 02/22/25 18:57 Dextrose 50% 25 Gm/50 Ml Syringe IV PUSH PRN PRN Hypoglycemia Protocol Diphenhydramine HCl 25 mg 02/22/25 18:51 02/24/25 12:40 Diphenhydramine Hcl Inj 50 Mg/Ml Vial IV PUSH 25 mg Q4H PRN Administration Nausea And Vomiting Escitalopram Oxalate 10 mg 02/23/25 09:00 02/24/25 08:49 Escitalopram Oxalate 10 Mg Tablet PO 10 mg DAILY JAYME Administration Gabapentin 100 mg 02/22/25 19:05 02/24/25 12:41 Gabapentin 100 Mg Capsule PO 100 mg TID JAYME Administration Glucagon 1 mg 02/22/25 18:57 Glucagon For Inj 1 Mg Vial IM PRN PRN Hypoglycemia Protocol Glucose 15 gm 02/22/25 18:57 Glucose Oral Gel 15 Gm Of Glucse In 37.5 Gm Tube PO PRN PRN Hypoglycemia Protocol Heparin Sodium (Beef Lung) 50 units 02/23/25 09:00 02/24/25 08:51 Heparin Flush 50 Units/5 Ml Syringe IV PUSH 50 units QAM JAYME Administration Heparin Sodium (Beef Lung) 50 units 02/22/25 10:10 Heparin Flush 50 Units/5 Ml Syringe IV PUSH PRN PRN after intermittent infusion Heparin Sodium (Beef Lung) 50 units 02/22/25 10:10 Heparin Flush 50 Units/5 Ml Syringe IV PUSH PRN PRN after blood draws Heparin Sodium (Porcine) 500 units 02/22/25 10:10 Heparin Sodium Lock Flush 500 Units/5 Ml Syringe IV PUSH PRN PRN see comments below Heparin Sodium (Porcine) 5,000 units 02/22/25 22:00 02/24/25 05:48 Heparin Sodium 5,000 Units/Ml Vial SUB-Q Not Given Q8HR JAYME Heparin Sodium (Porcine) 500 units 02/24/25 12:50 Heparin Sodium 1,000 Units/Ml Vial IV PUSH 02/24/25 14:51 Q1H JAYME Hydromorphone HCl 0.5 mg 02/23/25 14:16 02/24/25 10:49 Hydromorphone Hcl Inj (*Crx) 1 Mg/Ml Syr IV PUSH 0.5 mg Q4H PRN Administration Pain Rated 7-10 Dextrose 1,000 mls @ 100 mls/hr 02/22/25 18:57 Dextrose 5% 1,000 Ml IVPB PRN PRN Hypoglycemia Protocol Albumin Human 50 mls @ 999 mls/hr 02/24/25 05:54 Albutein IVPB Q10M PRN HYPOTENSION Insulin Aspart 2 - 5 units 02/23/25 08:00 02/24/25 12:57 Insulin Aspart (*Bkc) 100 Units/Ml SUB-Q Not Given TIDWM JAYME Protocol Insulin Aspart 1 - 2 units 02/22/25 21:00 02/23/25 21:58 Insulin Aspart (*Bkc) 100 Units/Ml SUB-Q Not Given HS JAYME Protocol Insulin Glargine 6 units 02/24/25 21:00 Insulin Glargine (*Bkc) 100 Units/Ml SUB-Q Q12H JAYME Isosorbide Mononitrate 30 mg 02/23/25 09:00 02/24/25 08:49 Isosorbide Mononitrate 30 Mg Tab.Er.24h PO 30 mg QAM JAYME Administration Losartan Potassium 25 mg 02/23/25 09:00 02/24/25 08:49 Losartan Potassium 25 Mg Tablet PO 25 mg DAILY JAYME Administration Metoprolol Succinate 200 mg 02/23/25 09:00 02/24/25 08:50 Metoprolol Succinate Ext Rel 100 Mg Tabcr PO 200 mg DAILY JAYME Administration Ondansetron HCl 4 mg 02/22/25 16:24 Ondansetron Inj 4 Mg/2 Ml Vial IV PUSH Q4H PRN Nausea Pantoprazole Sodium 40 mg 02/23/25 09:00 02/24/25 08:49 Pantoprazole 40 Mg Tablet PO 40 mg QAM JAYME Administration Sodium Chloride 10 ml 02/22/25 14:00 02/24/25 06:13 Central Line Flush IV PUSH 10 ml Q8HR JAYME Administration Zolpidem Tartrate 2.5 mg 02/23/25 14:18 Zolpidem Tartrate (*Crx) 2.5 Mg Tablet PO HS PRN Insomnia Radiology Results: ITS Impressions Chest X-Ray 02/22/25 13:31 IMPRESSION: 1. No acute cardiopulmonary findings given portable technique. Abdomen/Pelvis CT 02/22/25 13:41 IMPRESSION: 1. Mild wall thickening in the small and large bowel as well as the distal esophagus could be associated with third spacing; early or mild inflammatory or infectious changes may have a similar appearance. Correlate clinically. 2. The urinary bladder is mildly distended. No acute surgical abnormality identified. 3. Slightly improved aeration in the left lung base. Labs Labs: Laboratory Results - last 24 hr 02/23/25 02/23/25 02/24/25 17:27 21:51 02:27 ESR Sodium Potassium Chloride Carbon Dioxide Anion Gap BUN Creatinine Estim Creat Clear Calc Estimated GFR Glucose POC Capillary Glucose 93 154 H 50 L* Calcium Phosphorus C-Reactive Protein Albumin 02/24/25 02/24/25 02/24/25 03:00 06:12 06:12 ESR 36 H Sodium 135 L Cancelled Potassium 5.0 Chloride Carbon Dioxide Anion Gap BUN Creatinine Estim Creat Clear Calc Estimated GFR Glucose POC Capillary Glucose 174 H Calcium Phosphorus C-Reactive Protein Albumin 02/24/25 02/24/25 02/24/25 06:12 06:12 06:12 ESR Sodium Potassium Cancelled Chloride 100 Cancelled Carbon Dioxide 21 L Cancelled Anion Gap 14 H BUN Creatinine Estim Creat Clear Calc Estimated GFR Glucose POC Capillary Glucose Calcium Phosphorus C-Reactive Protein Albumin 02/24/25 02/24/25 02/24/25 06:12 06:12 06:12 ESR Sodium Potassium Chloride Carbon Dioxide Anion Gap Cancelled BUN 48 H D Cancelled Creatinine 9.93 H Cancelled Estim Creat Clear Calc 7 Estimated GFR Glucose POC Capillary Glucose Calcium Phosphorus C-Reactive Protein Albumin 02/24/25 02/24/25 02/24/25 06:12 06:12 06:12 ESR Sodium Potassium Chloride Carbon Dioxide Anion Gap BUN Creatinine Estim Creat Clear Calc Cancelled Estimated GFR 5 L Cancelled Glucose 121 H Cancelled POC Capillary Glucose Calcium 7.4 L Phosphorus C-Reactive Protein Albumin 02/24/25 02/24/25 02/24/25 06:12 06:12 06:12 ESR Sodium Potassium Chloride Carbon Dioxide Anion Gap BUN Creatinine Estim Creat Clear Calc Estimated GFR Glucose POC Capillary Glucose Calcium Cancelled Phosphorus 8.8 H Cancelled C-Reactive Protein 0.8 Albumin 3.9 Cancelled 02/24/25 02/24/25 02/24/25 06:27 08:14 12:11 ESR Sodium Potassium Chloride Carbon Dioxide Anion Gap BUN Creatinine Estim Creat Clear Calc Estimated GFR Glucose POC Capillary Glucose 116 H 103 118 H Calcium Phosphorus C-Reactive Protein Albumin
[2025-02-24 15:13] LABS: Hematocrit 32.6 % (37.0-47.0); Hemoglobin 10.7 g/dL (12.0-15.0); Immature Granulocyte Percent A 0.0 % (0-0.5); Lymphocytes Absolute Auto 1.45 K/mm3 (0.9-3.2); Mean Corpuscular HGB Conc 32.8 g/dl (32-36); Mean Corpuscular Hemoglobin 29.2 pg (26-34); Mean Corpuscular Volume 88.8 fl (80-100); Nucleated Red Blood Cells Absolute Auto 0.000 K/mm3 (0.0-0.012); Nucleated Red Blood Cells Perc 0.0 % (0.0-0.2); Platelet Count Result 163 k/mm3 (150-375); Red Blood Count 3.67 M/mm3 (4.2-5.4); White Blood Count 4.0 K/mm3 (4.5-10.0)
[2025-02-24 15:28] LABS: CRP 0.8 mg/dL (<1.0)
[2025-02-24 15:40] LABS: Procalcitonin 0.5 ng/mL
[2025-02-24] MEDS: INSULIN GLARGINE (*BKC) 100 UNITS/ML 6 UNITS SUB-Q (20:48)
[2025-02-25] VITALS (8 sets, daily range): BP systolic 128–189; BP diastolic 68–94; PULSE 84–98; RESP 16–99; TEMP 36.3–36.9; O2SAT 98–100
[2025-02-25] MEDS: HYDROmorphone HCL INJ (*CRX) 1 MG/ML SYR 0.5 MG IV PUSH ×5 (02:56→20:26)
[2025-02-25] MEDS: DEXTROSE 50% 25 GM/50 ML SYRINGE IV PUSH (03:45)
[2025-02-25] MEDS: CENTRAL LINE FLUSH 10 ML IV PUSH ×3 (04:59→22:46)
[2025-02-25 05:11] LABS: Hematocrit 34.6 % (37.0-47.0); Hemoglobin 10.8 g/dL (12.0-15.0); Mean Corpuscular HGB Conc 31.2 g/dl (32-36); Mean Corpuscular Hemoglobin 28.6 pg (26-34); Mean Corpuscular Volume 91.8 fl (80-100); Platelet Count Result 167 k/mm3 (150-375); Red Blood Count 3.77 M/mm3 (4.2-5.4); White Blood Count 4.9 K/mm3 (4.5-10.0)
[2025-02-25 05:32] LABS: Albumin Level 3.8 g/dL (3.5-5.1); Anion Gap 9 mmol/L (4-12); Blood Urea Nitrogen 21 mg/dL (7-17); Calcium 7.0 mg/dL (8.4-10.2); Carbon Dioxide 26 mmol/L (22-30); Chloride 104 mmol/L (98-107); Estimated CRCL calculation 13 ml/min; Estimated Glomerular Filt Rate 10; Glucose 130 mg/dL (65-110); Potassium 4.3 mmol/L (3.4-5.0); Sodium 139 mmol/L (137-145)
[2025-02-25] MEDS: ACETAMINOPHEN 325 MG TABLET 650 MG PO ×2 (09:08→22:46)
[2025-02-25] MEDS: LOSARTAN POTASSIUM 25 MG TABLET PO (09:14)
[2025-02-25] MEDS: ISOSORBIDE MONONITRATE 30 MG TAB.ER.24H PO (09:14)
[2025-02-25] MEDS: METOPROLOL SUCCINATE EXT REL 100 MG TABCR 200 MG PO (09:15)
[2025-02-25] MEDS: ESCITALOPRAM OXALATE 10 MG TABLET PO (09:16)
[2025-02-25] MEDS: GABAPENTIN 100 MG CAPSULE PO ×2 (09:16→16:54)
[2025-02-25] MEDS: PANTOPRAZOLE 40 MG TABLET PO (09:16)
--- NOTE | 2025-02-25 10:16 | P.PNIM_ITS ---
Progress Note: A&P Assessment and Plan (1) Intractable nausea and vomiting: Code(s): R11.2 - Nausea with vomiting, unspecified Status: Chronic Assessment and Plan: Secondary to history of chronic nausea and vomiting in a patient with known gastroparesis status post Enterra device and G/J tube. Patient uses the gastric portion of her tube to drain stomach contents. Patient given multiple interventions in the ED totaling 2 mg hydromorphone, 50 mg IVP Benadryl, 20 mg IVP Pepcid, 5 mg haloperidol, 4 mg Zofran. Abdominal pelvic CT shows mild wall thickening in the small intestine, large bowel, distal esophagus that could be associated with 3rd spacing however, earlier mild inflammatory infectious changes could look similar. Intolerances to Reglan, tigan, and avoids compazine. -continue Zofran, diphenhydramine IV push -tube feeds: Start 10ml/hr jejunum tube continuous. Can discuss nocturnal feeds if tolerating. Not currently tolerating tube feeds at 10ml/hr due to sharp pains. Would consider a psychogenic component -registered dietitian consulted --Per RN, ate more than half of her meals 02/24-02/25, but patient reports emptying g-tube after eating. Would likely be a portion of meal and not the entire meal given size of tube -consider gravity drain or low intermittent suction for gastric tube to help with nausea due to gastroparesis -continue hydromorphone for pain, need to wean because it will worsen gastroparesis, 1mg>0.5mg q4 prn May be experiencing some tolerance after her recent hospitalization. Patient stopped feeds at 10/ml at hour due to severe pain. --GI consult in AM -Can offer a Dilaudid [employer] pump 0.2mg q15 minutes prn if patient requests. Discussed with her that it would give her the same amount of dilaudid as she can get with 1mg q4 but she preferred the 0.5mg IV pushes for now. Not planning to escalate IV push opiate medications --ambien 2.5hs prn for sleep, feels this was helpful for nausea previously. Did not help this admission --1 dose of diazepam 2.5mg IV tonight --Restart benadryl at 1am, but need to stop/decrease after she talks to GI. --If not improving, discussed transfer to [place] (2) Abdominal pain: Code(s): R10.9 - Unspecified abdominal pain Status: Acute Assessment and Plan: Complicated history with limited medication options. Doesn't feel bentyl helps her. Having diarrhea s/p imodium x1 GI consult if not improving. Discussed with her that there are more limited options at this hospital, will need transfer to [place] if not improving Check ESR, CRP Stool studies: H pylori, Stool culture, C-diff Limit opiates with gastroparesis. Offered a [employer] but patient declined at this time 02/22/25 CT abd/pelvis 1. Mild wall thickening in the small and large bowel as well as the distal esophagus could be associated with third spacing; early or mild inflammatory or infectious changes may have a similar appearance. Correlate clinically. 2. The urinary bladder is mildly distended. No acute surgical abnormality identified. 3. Slightly improved aeration in the left lung base. (3) Hypertension: Qualifiers: Hypertension type: primary hypertension Qualified Code(s): I10 - Essential (primary) hypertension Code(s): I10 - Essential (primary) hypertension Status: Chronic Assessment and Plan: Patient hypertensive on admit -continue metoprolol succinate 200 mg daily, Coreg 12.5 q12, amlodipine 10 mg daily>7.5mg tomorrow if stable -Has an allergy to hydralazine --If not tolerating pills, can add metoprolol IV (4) End stage renal disease on dialysis: Code(s): N18.6 - End stage renal disease; Z99.2 - Dependence on renal dialysis Status: Chronic Assessment and Plan: ESRD on HD TTS. Patient missed her Wednesday dialysis due to not feeling well. She did have a full makeup session prior to admission -nephrology consulted (5) DKA, type 1: Qualifiers: Diabetes mellitus complication detail: without coma Qualified Code(s): E10.10 - Type 1 diabetes mellitus with ketoacidosis without coma Code(s): E10.10 - Type 1 diabetes mellitus with ketoacidosis without coma Status: Chronic Assessment and Plan: Very brittle type 1 diabetic. Diagnosed at age 7. Follows endocrinology at [place]. Patient has hyperglycemic and hypoglycemic events during hospitalizations. - hypoglycemia protocol - POC blood glucose ACHS and Q 6 as patient eats some through the day and gets tube feeding at night. - home medication: Lantus 25 units daily, lispro sliding scale - correct regimen ordered: Lantus 20 units daily--changed to 10 units q12 since eating inconsistently, was 50 overnight. Decrease to 6 units BID for tonight's dose -- low-dose sliding scale with meals and bedtime. Add mealtime insulin if tolerating meals -will closely monitor patient's blood sugar trends. Will likely need several adjustments throughout her hospitalization -Follows with endocrinology outpatient. Planning an insulin pump. Previously counted calories but not currently, just uses a sliding scale at home --Dextrose fluids if needed (6) Acute pain: Code(s): R52 - Pain, unspecified Status: Acute Assessment and Plan: Patient reports pain generalized to abdomen. Same pain as last admission, worsens with tube feeds but doesn't feel it is related to gastroparesis Plan Diet: Diabetic for pleasure feeds/nocturnal tube feeds GI prophylaxis: Pantoprazole DVT prophylaxis: Heparin subQ lines/drains: Port-A-Cath left chest, tunneled dialysis catheter to right chest, GJ tube Fluids: s/p 500 mL NS bolus Code status: Utility Pipe Layer Spent With Patient Time: 57 minutes Subjective Date/time seen: 02/25/25 17:15 Interval history: Overnight tried tube feeds for 4 hours at 10ml/hr but reports severe abdominal pain and nausea that was only relieved with dilaudid and benadryl. She reports pain was so severe that she couldn't sleep and was tearful on exam. Said she would be agreeable to reducing dilaudid after speaking with GI RN discussed with her about setting an alarm for benadryl and dilaudid and after the conversation she did ask for tylenol. I discussed with her that benadryl and dilaudid worsen gastroparesis and that it is hard to justify continuing them when gastroparesis can also be source of pain. Blood sugar 50 overnight, repeat normal. Reduced lantus dose to 5 units BID for tonight Planning no escalation of opiates unless she wishes to try a [employer] pump Dilaudid 0.2mg q15 prn RN reports she sets her alarm for opiates and bendryl. Review of Systems Review of Systems: All systems reviewed & are unremarkable except as noted in HPI and below Exam Narrative: GENERAL: Appears uncomfortable HEAD: Normocephalic, atraumatic. EYES: PERRLA. Conjunctivae clear. NOSE: Normal no drainage. THROAT: Pharynx clear, no exudate. NECK: Trachea midline. No adenopathy, no masses. CHEST: Left-sided Port-A-Cath in place, right-sided tunnel catheter in place RESPIRATORY: Airway patent, respirations nonlabored. CTA. CARDIOVASCULAR: Regular rate and rhythm BREASTS: Defer GASTROINTESTINAL: Abdomen is soft and generalized tenderness. No organomegaly. Bowel sounds normal in all quadrants. GJ tube in place GENITOURINARY: Defer MUSCULOSKELETAL: Moves all extremities. No gross deformities. SKIN: Warm, dry, normal color. NEURO: A&O X4. Speech clear PSYCHIATRIC: Normal interaction Objective Data Vital Signs Vital Signs: Vital Signs - 24 hr 02/24/25 12:58 02/24/25 13:10 02/24/25 13:15 Temperature 97.7 F Pulse Rate 76 75 76 Respiratory Rate 16 Blood Pressure 124/74 111/75 124/81 Pulse Oximetry 99 Oxygen Delivery 02/24/25 13:30 02/24/25 13:45 02/24/25 14:00 Temperature Pulse Rate 78 81 84 Respiratory Rate Blood Pressure 123/82 126/84 136/82 Pulse Oximetry Oxygen Delivery 02/24/25 14:15 02/24/25 14:30 02/24/25 14:45 Temperature Pulse Rate 84 83 83 Respiratory Rate Blood Pressure 139/90 147/86 H 156/89 H Pulse Oximetry Oxygen Delivery 02/24/25 15:00 02/24/25 15:15 02/24/25 15:30 Temperature Pulse Rate 86 83 83 Respiratory Rate Blood Pressure 167/92 H 153/86 H 167/91 H Pulse Oximetry Oxygen Delivery 02/24/25 15:45 02/24/25 16:00 02/24/25 16:10 Temperature Pulse Rate 84 85 85 Respiratory Rate Blood Pressure 169/92 H 164/93 H 169/95 H Pulse Oximetry Oxygen Delivery 02/24/25 16:17 02/24/25 21:00 02/24/25 21:00 Temperature 98.2 F 98 F Pulse Rate 87 84 84 Respiratory Rate 16 16 16 Blood Pressure 185/98 H 165/94 H Pulse Oximetry 99 100 100 Oxygen Delivery Room Air 02/25/25 04:00 02/25/25 09:15 02/25/25 09:18 Temperature 98 F Pulse Rate 98 85 84 Respiratory Rate 18 Blood Pressure 189/90 H Pulse Oximetry 100 Oxygen Delivery Intake/Output Intake/Output: Intake & Output 02/22/25 02/23/25 02/24/25 02/25/25 23:59 23:59 23:59 23:59 Intake Total 500 1945 2150 770 Output Total 500 Balance 500 1944 1650 770 Meds/Results Medications: Active Medications Generic Name Dose Route Start Last Admin Trade Name Freq PRN Reason Stop Dose Admin Acetaminophen 650 mg 02/22/25 16:24 02/25/25 09:08 Acetaminophen 325 Mg Tablet PO 650 mg Q4H PRN Administration Mild Pain (1-3) or Fever Amlodipine Besylate 7.5 mg 02/25/25 09:00 02/25/25 09:14 Amlodipine Besylate 2.5 Mg Tablet PO 7.5 mg DAILY JAYME Administration Carvedilol 12.5 mg 02/22/25 21:00 02/25/25 09:18 Carvedilol 12.5 Mg Tablet PO 12.5 mg Q12H JAYME Administration Dextrose 12.5 gm 02/22/25 18:57 02/25/25 03:45 Dextrose 50% 25 Gm/50 Ml Syringe IV PUSH 12.5 gm PRN PRN Administration Hypoglycemia Protocol Diphenhydramine HCl 50 mg 02/24/25 15:45 02/25/25 09:08 Diphenhydramine Hcl Inj 50 Mg/Ml Vial IV PUSH 50 mg Q4H PRN Administration Nausea And Vomiting Escitalopram Oxalate 10 mg 02/23/25 09:00 02/25/25 09:16 Escitalopram Oxalate 10 Mg Tablet PO 10 mg DAILY JAYME Administration Gabapentin 100 mg 02/22/25 19:05 02/25/25 09:16 Gabapentin 100 Mg Capsule PO 100 mg TID JAYME Administration Glucagon 1 mg 02/22/25 18:57 Glucagon For Inj 1 Mg Vial IM PRN PRN Hypoglycemia Protocol Glucose 15 gm 02/22/25 18:57 Glucose Oral Gel 15 Gm Of Glucse In 37.5 Gm Tube PO PRN PRN Hypoglycemia Protocol Heparin Sodium (Beef Lung) 50 units 02/23/25 09:00 02/25/25 09:17 Heparin Flush 50 Units/5 Ml Syringe IV PUSH 50 units QAM JAYME Administration Heparin Sodium (Beef Lung) 50 units 02/22/25 10:10 Heparin Flush 50 Units/5 Ml Syringe IV PUSH PRN PRN after intermittent infusion Heparin Sodium (Beef Lung) 50 units 02/22/25 10:10 Heparin Flush 50 Units/5 Ml Syringe IV PUSH PRN PRN after blood draws Heparin Sodium (Porcine) 500 units 02/22/25 10:10 Heparin Sodium Lock Flush 500 Units/5 Ml Syringe IV PUSH PRN PRN see comments below Hydromorphone HCl 0.5 mg 02/23/25 14:16 02/25/25 02:56 Hydromorphone Hcl Inj (*Crx) 1 Mg/Ml Syr IV PUSH 0.5 mg Q4H PRN Administration Pain Rated 7-10 Dextrose 1,000 mls @ 100 mls/hr 02/22/25 18:57 Dextrose 5% 1,000 Ml IVPB PRN PRN Hypoglycemia Protocol Albumin Human 50 mls @ 999 mls/hr 02/24/25 05:54 Albutein IVPB Q10M PRN HYPOTENSION Insulin Aspart 2 - 5 units 02/23/25 08:00 02/25/25 09:05 Insulin Aspart (*Bkc) 100 Units/Ml SUB-Q Not Given TIDWM [facility] Protocol Insulin Aspart 1 - 2 units 02/22/25 21:00 02/24/25 20:22 Insulin Aspart (*Bkc) 100 Units/Ml SUB-Q Not Given HS [facility] Protocol Insulin Glargine 6 units 02/24/25 21:00 02/24/25 20:48 Insulin Glargine (*Bkc) 100 Units/Ml SUB-Q 6 units Q12H JAYME Administration Isosorbide Mononitrate 30 mg 02/23/25 09:00 02/25/25 09:14 Isosorbide Mononitrate 30 Mg Tab.Er.24h PO 30 mg QAM JAYME Administration Losartan Potassium 25 mg 02/23/25 09:00 02/25/25 09:14 Losartan Potassium 25 Mg Tablet PO 25 mg DAILY JAYME Administration Metoprolol Succinate 200 mg 02/23/25 09:00 02/25/25 09:15 Metoprolol Succinate Ext Rel 100 Mg Tabcr PO 200 mg DAILY JAYME Administration Ondansetron HCl 4 mg 02/22/25 16:24 Ondansetron Inj 4 Mg/2 Ml Vial IV PUSH Q4H PRN Nausea Pantoprazole Sodium 40 mg 02/23/25 09:00 02/25/25 09:16 Pantoprazole 40 Mg Tablet PO 40 mg QAM JAYME Administration Sodium Chloride 10 ml 02/22/25 14:00 02/25/25 04:59 Central Line Flush IV PUSH 10 ml Q8HR JAYME Administration Zolpidem Tartrate 2.5 mg 02/23/25 14:18 Zolpidem Tartrate (*Crx) 2.5 Mg Tablet PO HS PRN Insomnia Radiology Results: ITS Impressions Chest X-Ray 02/22/25 13:31 IMPRESSION: 1. No acute cardiopulmonary findings given portable technique. Abdomen/Pelvis CT 02/22/25 13:41 IMPRESSION: 1. Mild wall thickening in the small and large bowel as well as the distal esophagus could be associated with third spacing; early or mild inflammatory or infectious changes may have a similar appearance. Correlate clinically. 2. The urinary bladder is mildly distended. No acute surgical abnormality identified. 3. Slightly improved aeration in the left lung base. Labs Labs: Laboratory Results - last 24 hr 02/24/25 02/24/25 02/24/25 12:11 14:53 17:05 WBC 4.0 L RBC 3.67 L Hgb 10.7 L Hct 32.6 L MCV 88.8 MCH 29.2 MCHC 32.8 RDW 15.6 H Plt Count 163 MPV 10.4 Immature Gran % (Auto) 0.0 Neut % (Auto) 48.9 Lymph % (Auto) 36.2 Douglas % (Auto) 9.7 H Eos % (Auto) 5.0 H Baso % (Auto) 0.2 Lymph # (Auto) 1.45 Douglas # (Auto) 0.4 Eos # (Auto) 0.2 Baso # (Auto) 0.0 Abs Immat Gran (auto) 0.00 Absolute Neuts (auto) 2.0 Absolute Nucleated RBC 0.000 Nucleated RBC % 0.0 Sodium Potassium Chloride Carbon Dioxide Anion Gap BUN Creatinine Estim Creat Clear Calc Estimated GFR Glucose POC Capillary Glucose 118 H 181 H Calcium Phosphorus C-Reactive Protein 0.8 Albumin Procalcitonin 0.5 02/24/25 02/24/25 02/25/25 20:11 22:59 03:40 WBC RBC Hgb Hct MCV MCH MCHC RDW Plt Count MPV Immature Gran % (Auto) Neut % (Auto) Lymph % (Auto) Douglas % (Auto) Eos % (Auto) Baso % (Auto) Lymph # (Auto) Douglas # (Auto) Eos # (Auto) Baso # (Auto) Abs Immat Gran (auto) Absolute Neuts (auto) Absolute Nucleated RBC Nucleated RBC % Sodium Potassium Chloride Carbon Dioxide Anion Gap BUN Creatinine Estim Creat Clear Calc Estimated GFR Glucose POC Capillary Glucose 227 H 130 H 50 L* Calcium Phosphorus C-Reactive Protein Albumin Procalcitonin 02/25/25 02/25/25 02/25/25 03:59 04:59 08:05 WBC 4.9 RBC 3.77 L Hgb 10.8 L Hct 34.6 L MCV 91.8 MCH 28.6 MCHC 31.2 L RDW 15.5 H Plt Count 167 MPV 10.8 H Immature Gran % (Auto) Neut % (Auto) Lymph % (Auto) Douglas % (Auto) Eos % (Auto) Baso % (Auto) Lymph # (Auto) Douglas # (Auto) Eos # (Auto) Baso # (Auto) Abs Immat Gran (auto) Absolute Neuts (auto) Absolute Nucleated RBC Nucleated RBC % Sodium 139 Potassium 4.3 Chloride 104 Carbon Dioxide 26 Anion Gap 9 BUN 21 H D Creatinine 5.12 H Estim Creat Clear Calc 13 Estimated GFR 10 L Glucose 130 H POC Capillary Glucose 115 H 95 Calcium 7.0 L Phosphorus 5.2 H C-Reactive Protein Albumin 3.8 Procalcitonin Quality VTE Prophylaxis VTE prophylaxis: pharmacologic ordered (Patient refusing ) Hospitalist MIPS Advance Care Plan I have confirmed that the patient's Advanced Care Plan is present, code status is documented, or surrogate decision maker is listed in patient medical record.: Yes Medication Reconciliation The patient is not eligible for med reconciliation; the patient is in a emergent medical situation where delaying treatment would jeopardize the patients health.: Yes
--- NOTE | 2025-02-25 10:41 | P.PNNP_ITS ---
Progress Note: A&P Assessment and Plan (1) End stage renal disease: Code(s): N18.6 - End stage renal disease Status: Chronic Assessment and Plan: * HD finished yesterday. * continue //Wednesday dialyis schedule while hospitalized * volume status looks okay * potassium is 4.3 * next treatment on Wednesday * outpatient dialysis clinic = [facility] [place] in [place] * primary torch operator = Dr. Odilon Tellez (2) Intractable nausea and vomiting: Code(s): R11.2 - Nausea with vomiting, unspecified Status: Chronic Assessment and Plan: * chronic and long standing issue (per patient and review of records) * cyclic in nature -- just discharged for this issue 5 days ago... 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 * Will check another level tomorrow. Consider EPO on Wednesday (5) Hypertension: Qualifiers: Hypertension type: primary hypertension Qualified Code(s): I10 - Essential (primary) hypertension Code(s): I10 - Essential (primary) hypertension Status: Chronic Assessment and Plan: * resumed home medications * blood pressure is high. * On amlodipine 7.5, carvedilol 12.5 b.i.d., losartan 25, metoprolol 200. * Will increase losartan to 50 * follow trend of hemodynamics (6) Type 1 diabetes: Qualifiers: Diabetes mellitus complication status: with hyperglycemia Qualified Code(s): E10.65 - Type 1 diabetes mellitus with hyperglycemia Code(s): E10.9 - Type 1 diabetes mellitus without complications Status: Chronic Assessment and Plan: * follow accu-cheks * glycemic control per hospitalist Subjective Date/time seen: 02/25/25 10:41 Interval history: Nory is feeling about the same. She had a rough night. She could not sleep. Exam Narrative: WDWN in NAD skin no rash head ncat lungs clear bilaterally cor reg no rub abd BS+ nontender and soft ext no edema. Objective Data Vital Signs Vital Signs: Vital Signs - 24 hr 02/24/25 12:58 02/24/25 13:10 02/24/25 13:15 Temperature 97.7 F Pulse Rate 76 75 76 Respiratory Rate 16 Blood Pressure 124/74 111/75 124/81 Pulse Oximetry 99 Oxygen Delivery 02/24/25 13:30 02/24/25 13:45 02/24/25 14:00 Temperature Pulse Rate 78 81 84 Respiratory Rate Blood Pressure 123/82 126/84 136/82 Pulse Oximetry Oxygen Delivery 02/24/25 14:15 02/24/25 14:30 02/24/25 14:45 Temperature Pulse Rate 84 83 83 Respiratory Rate Blood Pressure 139/90 147/86 H 156/89 H Pulse Oximetry Oxygen Delivery 02/24/25 15:00 02/24/25 15:15 02/24/25 15:30 Temperature Pulse Rate 86 83 83 Respiratory Rate Blood Pressure 167/92 H 153/86 H 167/91 H Pulse Oximetry Oxygen Delivery 02/24/25 15:45 02/24/25 16:00 02/24/25 16:10 Temperature Pulse Rate 84 85 85 Respiratory Rate Blood Pressure 169/92 H 164/93 H 169/95 H Pulse Oximetry Oxygen Delivery 02/24/25 16:17 02/24/25 21:00 02/24/25 21:00 Temperature 98.2 F 98 F Pulse Rate 87 84 84 Respiratory Rate 16 16 16 Blood Pressure 185/98 H 165/94 H Pulse Oximetry 99 100 100 Oxygen Delivery Room Air 02/25/25 04:00 02/25/25 09:15 02/25/25 09:18 Temperature 98 F Pulse Rate 98 85 84 Respiratory Rate 18 Blood Pressure 189/90 H Pulse Oximetry 100 Oxygen Delivery Intake/Output Intake/Output: Intake & Output 02/22/25 02/23/25 02/24/25 02/25/25 23:59 23:59 23:59 23:59 Intake Total 500 194 2150 770 Output Total 500 Balance 500 19440 770 Meds/Results Medications: Active Medications Generic Name Dose Route Start Last Admin Trade Name Freq PRN Reason Stop Dose Admin Acetaminophen 650 mg 02/22/25 16:24 02/25/25 09:08 Acetaminophen 325 Mg Tablet PO 650 mg Q4H PRN Administration Mild Pain (1-3) or Fever Amlodipine Besylate 7.5 mg 02/25/25 09:00 02/25/25 09:14 Amlodipine Besylate 2.5 Mg Tablet PO 7.5 mg DAILY JAYME Administration Carvedilol 12.5 mg 02/22/25 21:00 02/25/25 09:18 Carvedilol 12.5 Mg Tablet PO 12.5 mg Q12H JAYME Administration Dextrose 12.5 gm 02/22/25 18:57 02/25/25 03:45 Dextrose 50% 25 Gm/50 Ml Syringe IV PUSH 12.5 gm PRN PRN Administration Hypoglycemia Protocol Diphenhydramine HCl 50 mg 02/24/25 15:45 02/25/25 09:08 Diphenhydramine Hcl Inj 50 Mg/Ml Vial IV PUSH 50 mg Q4H PRN Administration Nausea And Vomiting Escitalopram Oxalate 10 mg 02/23/25 09:00 02/25/25 09:16 Escitalopram Oxalate 10 Mg Tablet PO 10 mg DAILY JAYME Administration Gabapentin 100 mg 02/22/25 19:05 02/25/25 09:16 Gabapentin 100 Mg Capsule PO 100 mg TID JAYME Administration Glucagon 1 mg 02/22/25 18:57 Glucagon For Inj 1 Mg Vial IM PRN PRN Hypoglycemia Protocol Glucose 15 gm 02/22/25 18:57 Glucose Oral Gel 15 Gm Of Glucse In 37.5 Gm Tube PO PRN PRN Hypoglycemia Protocol Heparin Sodium (Beef Lung) 50 units 02/23/25 09:00 02/25/25 09:17 Heparin Flush 50 Units/5 Ml Syringe IV PUSH 50 units QAM JAYME Administration Heparin Sodium (Beef Lung) 50 units 02/22/25 10:10 Heparin Flush 50 Units/5 Ml Syringe IV PUSH PRN PRN after intermittent infusion Heparin Sodium (Beef Lung) 50 units 02/22/25 10:10 Heparin Flush 50 Units/5 Ml Syringe IV PUSH PRN PRN after blood draws Heparin Sodium (Porcine) 500 units 02/22/25 10:10 Heparin Sodium Lock Flush 500 Units/5 Ml Syringe IV PUSH PRN PRN see comments below Hydromorphone HCl 0.5 mg 02/23/25 14:16 02/25/25 02:56 Hydromorphone Hcl Inj (*Crx) 1 Mg/Ml Syr IV PUSH 0.5 mg Q4H PRN Administration Pain Rated 7-10 Dextrose 1,000 mls @ 100 mls/hr 02/22/25 18:57 Dextrose 5% 1,000 Ml IVPB PRN PRN Hypoglycemia Protocol Albumin Human 50 mls @ 999 mls/hr 02/24/25 05:54 Albutein IVPB Q10M PRN HYPOTENSION Insulin Aspart 2 - 5 units 02/23/25 08:00 02/25/25 09:05 Insulin Aspart (*Bkc) 100 Units/Ml SUB-Q Not Given TIDWM [facility] Protocol Insulin Aspart 1 - 2 units 02/22/25 21:00 02/24/25 20:22 Insulin Aspart (*Bkc) 100 Units/Ml SUB-Q Not Given HS [facility] Protocol Insulin Glargine 6 units 02/24/25 21:00 02/24/25 20:48 Insulin Glargine (*Bkc) 100 Units/Ml SUB-Q 6 units Q12H JAYME Administration Isosorbide Mononitrate 30 mg 02/23/25 09:00 02/25/25 09:14 Isosorbide Mononitrate 30 Mg Tab.Er.24h PO 30 mg QAM JAYME Administration Losartan Potassium 25 mg 02/23/25 09:00 02/25/25 09:14 Losartan Potassium 25 Mg Tablet PO 25 mg DAILY JAYME Administration Metoprolol Succinate 200 mg 02/23/25 09:00 02/25/25 09:15 Metoprolol Succinate Ext Rel 100 Mg Tabcr PO 200 mg DAILY JAYME Administration Ondansetron HCl 4 mg 02/22/25 16:24 Ondansetron Inj 4 Mg/2 Ml Vial IV PUSH Q4H PRN Nausea Pantoprazole Sodium 40 mg 02/23/25 09:00 02/25/25 09:16 Pantoprazole 40 Mg Tablet PO 40 mg QAM JAYME Administration Sodium Chloride 10 ml 02/22/25 14:00 02/25/25 04:59 Central Line Flush IV PUSH 10 ml Q8HR JAYME Administration Zolpidem Tartrate 2.5 mg 02/23/25 14:18 Zolpidem Tartrate (*Crx) 2.5 Mg Tablet PO HS PRN Insomnia Radiology Results: ITS Impressions Chest X-Ray 02/22/25 13:31 IMPRESSION: 1. No acute cardiopulmonary findings given portable technique. Abdomen/Pelvis CT 02/22/25 13:41 IMPRESSION: 1. Mild wall thickening in the small and large bowel as well as the distal esophagus could be associated with third spacing; early or mild inflammatory or infectious changes may have a similar appearance. Correlate clinically. 2. The urinary bladder is mildly distended. No acute surgical abnormality iden tified. 3. Slightly improved aeration in the left lung base. Labs Labs: Laboratory Results - last 24 hr 02/24/25 02/24/25 02/24/25 12:11 14:53 17:05 WBC 4.0 L RBC 3.67 L Hgb 10.7 L Hct 32.6 L MCV 88.8 MCH 29.2 MCHC 32.8 RDW 15.6 H Plt Count 163 MPV 10.4 Immature Gran % (Auto) 0.0 Neut % (Auto) 48.9 Lymph % (Auto) 36.2 [place] % (Auto) 9.7 H Eos % (Auto) 5.0 H Baso % (Auto) 0.2 Lymph # (Auto) 1.45 [place] # (Auto) 0.4 Eos # (Auto) 0.2 Baso # (Auto) 0.0 Abs Immat Gran (auto) 0.00 Absolute Neuts (auto) 2.0 Absolute Nucleated RBC 0.000 Nucleated RBC % 0.0 Sodium Potassium Chloride Carbon Dioxide Anion Gap BUN Creatinine Estim Creat Clear Calc Estimated GFR Glucose POC Capillary Glucose 118 H 181 H Calcium Phosphorus C-Reactive Protein 0.8 Albumin Procalcitonin 0.5 02/24/25 02/24/25 02/25/25 20:11 22:59 03:40 WBC RBC Hgb Hct MCV MCH MCHC RDW Plt Count MPV Immature Gran % (Auto) Neut % (Auto) Lymph % (Auto) [place] % (Auto) Eos % (Auto) Baso % (Auto) Lymph # (Auto) [place] # (Auto) Eos # (Auto) Baso # (Auto) Abs Immat Gran (auto) Absolute Neuts (auto) Absolute Nucleated RBC Nucleated RBC % Sodium Potassium Chloride Carbon Dioxide Anion Gap BUN Creatinine Estim Creat Clear Calc Estimated GFR Glucose POC Capillary Glucose 227 H 130 H 50 L* Calcium Phosphorus C-Reactive Protein Albumin Procalcitonin 02/25/25 02/25/25 02/25/25 03:59 04:59 08:05 WBC 4.9 RBC 3.77 L Hgb 10.8 L Hct 34.6 L MCV 91.8 MCH 28.6 MCHC 31.2 L RDW 15.5 H Plt Count 167 MPV 10.8 H Immature Gran % (Auto) Neut % (Auto) Lymph % (Auto) [place] % (Auto) Eos % (Auto) Baso % (Auto) Lymph # (Auto) [place] # (Auto) Eos # (Auto) Baso # (Auto) Abs Immat Gran (auto) Absolute Neuts (auto) Absolute Nucleated RBC Nucleated RBC % Sodium 139 Potassium 4.3 Chloride 104 Carbon Dioxide 26 Anion Gap 9 BUN 21 H D Creatinine 5.12 H Estim Creat Clear Calc 13 Estimated GFR 10 L Glucose 130 H POC Capillary Glucose 115 H 95 Calcium 7.0 L Phosphorus 5.2 H C-Reactive Protein Albumin 3.8 Procalcitonin
[2025-02-25] MEDS: INSULIN GLARGINE (*BKC) 100 UNITS/ML 6 UNITS SUB-Q (11:21)
[2025-02-25] MEDS: INSULIN ASPART (*BKC) 100 UNITS/ML SUB-Q (13:10)
[2025-02-25] MEDS: diazePAM INJ (*CRX) 10 MG/2 ML SYRINGE 2.5 MG IV PUSH (19:53)
[2025-02-25] MEDS: INSULIN GLARGINE (*BKC) 100 UNITS/ML SUB-Q (21:38)
[2025-02-26] VITALS (8 sets, daily range): BP systolic 150–177; BP diastolic 88–92; PULSE 62–84; RESP 18; TEMP 35.7–36.1; O2SAT 97–100
[2025-02-26] MEDS: HYDROmorphone HCL INJ (*CRX) 1 MG/ML SYR 0.5 MG IV PUSH ×6 (00:29→21:27)
[2025-02-26] MEDS: CENTRAL LINE FLUSH 10 ML IV PUSH ×3 (05:02→21:27)
[2025-02-26 05:19] LABS: Hematocrit 34.8 % (37.0-47.0); Hemoglobin 10.7 g/dL (12.0-15.0); Mean Corpuscular HGB Conc 30.7 g/dl (32-36); Mean Corpuscular Hemoglobin 28.3 pg (26-34); Mean Corpuscular Volume 92.1 fl (80-100); Platelet Count Result 137 k/mm3 (150-375); Red Blood Count 3.78 M/mm3 (4.2-5.4); White Blood Count 4.4 K/mm3 (4.5-10.0)
[2025-02-26 05:51] LABS: Albumin Level 4.0 g/dL (3.5-5.1); Anion Gap 11 mmol/L (4-12); Blood Urea Nitrogen 30 mg/dL (7-17); Calcium 7.5 mg/dL (8.4-10.2); Carbon Dioxide 27 mmol/L (22-30); Chloride 101 mmol/L (98-107); Estimated CRCL calculation 9 ml/min; Estimated Glomerular Filt Rate 6; Glucose 236 mg/dL (65-110); Potassium 4.9 mmol/L (3.4-5.0); Sodium 139 mmol/L (137-145)
--- NOTE | 2025-02-26 07:01 | PC.NURSE ---
Pt request to receive her Dilaudid IV and Benadryl IV at the same time. When she receive them together she becomes confused periodically. No acute distress noted.
--- NOTE | 2025-02-26 08:21 | WPDGICN ---
Assessment and Plan Assessment and plan (1) S/P percutaneous endoscopic gastrostomy (PEG) tube placement: Code(s): Z93.1 - Gastrostomy status Status: Acute (2) Nausea & vomiting: Qualifiers: Vomiting type: unspecified Qualified Code(s): R11.2 - Nausea with vomiting, unspecified Code(s): R11.2 - Nausea with vomiting, unspecified Status: Acute (3) Epigastric pain: Code(s): R10.13 - Epigastric pain Status: Acute (4) Type 1 diabetes: Qualifiers: Diabetes mellitus complication status: with hyperglycemia Qualified Code(s): E10.65 - Type 1 diabetes mellitus with hyperglycemia Code(s): E10.9 - Type 1 diabetes mellitus without complications Status: Chronic (5) ESRD on hemodialysis: Code(s): N18.6 - End stage renal disease; Z99.2 - Dependence on renal dialysis Status: Acute (6) Diabetic gastroparesis: Code(s): E11.43 - Type 2 diabetes mellitus with diabetic autonomic (poly)neuropathy; K31.84 - Gastroparesis Status: Chronic (7) Elevated LFTs: Code(s): R79.89 - Other specified abnormal findings of blood chemistry Status: Acute Plan 1. Gastroparesis/diabetes/chronic epigastric abdominal pain/nausea and vomiting/appetite loss/abnormal imaging digestive: Last EGD and colonoscopy in January at [facility] to rule out Crohn's, per patient were normal. CT this admission shows mild wall thickening in the small and large bowel as well as the distal esophagus could be associated with third spacing; early or mild inflammatory or infectious changes may have a similar appearance.Patient with brittle diabetes with poorly controlled sugars, ESRD requiring hemodialysis, and chronic GI issues for the past 6 years. She was previously diagnosed with cyclic vomiting syndrome that was then changed to gastroparesis. She received a gastric pacemaker placed around 2 years ago with no change in symptoms. She recently had a G/J tube placed at the beginning of January at [facility] and has not been able to find the sweet spot with her tube feedings. She is unable to take Reglan due to allergies. She has no improvement of symptoms with other antiemetics and medications are also limited by her history of QT prolongation. Patient feels that the only medication that helps with her nausea is Benadryl. She admits to epigastric pain that is sharp in nature and constant but varies in severity. She has frequent nausea and vomiting which has been worse since starting tube feedings. At home she was on Nepro 4.5 45 ml/hr but was not able to tolerate at this level or lower. She has been able to consume p.o. intake states that her appetite has been poor recently. She is on Protonix 40 mg daily with persistent epigastric pain, nausea, vomiting but no specific reflux. Recommend transfer to [facility], where her primary GI provider and surgeon are located and very familiar with the patients chronic and complex issues Continue Protonix 40 mg daily continue supportive care with PRN antiemetics or Benadryl based on response 2. Diarrhea: Patient admits to chronic loose to liquid BM's that was occurring even prior to starting tube feeding. She normally has a BM every 1-2 days but at times can have multiple BM's per day. S/P CCX, previously prescribed cholestyramine without any improvement in BM's. Recent colonoscopy and EGD per patient was normal and there was no findings consistent with IBD. At home she uses Imodium as needed which she states help to decrease bowel consistency and frequency. Per patient she has had an extensive GI workup done by her primary GI provider at [facility] Etiology likely multifactorial including poorly controlled blood sugars, bile acid diarrhea, motility disorder, medications and less likely infectious given the length of symptoms Stool studies pending Imodium as needed 3. Elevated LFT's: Increased LFT's since January but normal total bilirubin. Labs 02/22/2025 showed total bilirubin 1.1, AST 49, ALT 119, alkaline phosphatase 221, albumin 4.0. CTA 01/02/2025 mentioned enlarged liver but otherwise recent imaging shows no abnormal liver findings. She denies any prior diagnosis of liver disease. May be related to hepatic steatosis not seen on imaging Continue to monitor This can be further worked up by her primary GI who she is scheduled for a follow up with with in 1 month Thank you very much for allowing me to share in the care of this very nice patient. This report may have been done utilizing a voice recognition system. Attempts have been made to correct errors. However, there may be uncorrected grammatical, spelling, and recognition errors present. GI Consult Note Consult date/time: 02/26/25 08:21 Reason for consult: Issues tolerating tube feedings HPI: Lynette Bellamy is a 29 year old female with PMSH of gastroparesis, gastric pacemaker, G/J tube, end-stage renal disease on hemodialysis, depression, peripheral neuropathy, cholecystectomy, type 1 diabetes diagnosed at age 7 and history of DKA. She presented to the ER 02/22/2025 with complaints for abdominal pain, nausea and vomiting. GI has been consulted for issues with tube feedings. Patient admits to he chronic GI issues over the past 6 years. She was previously diagnosed with cyclic vomiting syndrome which was later changed to gastroparesis. She had a gastric pacemaker placed 2 years ago but experienced no change in GI symptoms. End of Dec/early Jan the patient had a G/J tube placed by her primary GI provider at [facility]. At home she was on Nepro 4.5 45 ml/hour but has been unable to find a feeding rate that she can tolerate without it causing nausea, vomiting and epigastric pain. She states that she has tried multiple anti emetics without improvement of symptoms specifically Zofran provided no relief and she has an allergy to Reglan. She states that the only medication that seems to help with her nausea is Benadryl. She admits to a decreased appetite over the past few weeks and feels that she has lost a few lb over this time but this is unmeasured. She is on pantoprazole 40 mg daily and denies any reflux symptoms. Admits to diarrhea every 1-2 days that varies in frequency. Her bowel movements are often urgent with occasional incontinence. She states that her bowel movements have no correlation with food intake and had been occurring prior to her starting tube feedings. She takes Imodium as needed which she states does help. She was previously prescribed cholestyramine but denies any improvement of bowel consistency and frequency. She denies abdominal bloating, odynophagia, dysphagia, regurgitation, early satiety, constipation, hematochezia, or melena. She is a nondrinker nonsmoker and denies marijuana use. Family history negative for CRC or IBD. She denies any NSAID, or anticoagulant use. ENDOSCOPY HISTORY: Per patient last EGD and colonoscopy performed in January were normal. She states that endoscopic evaluation was performed to rule out Crohn's disease and there was no findings to support a diagnosis of IBD. LABS AND STOOL STUDIES: Labs 02/26/2025: Sodium 139, potassium 4.9, BUN 30, creatinine 7.41, GFR 6, calcium 7.5, phosphorus 6.4 WBC 4.4, Hgb 11, Hct 35, MCV 92, platelets 137 IMAGING: CT abd/pelvis w/contrast 02/22/2025: IMPRESSION: 1. Mild wall thickening in the small and large bowel as well as the distal esophagus could be associated with third spacing; early or mild inflammatory or infectious changes may have a similar appearance. Correlate clinically. 2. The urinary bladder is mildly distended. No acute surgical abnormality identified. 3. Slightly improved aeration in the left lung base. CT chest/abd/pelvis w/o contrast 02/05/2025 IMPRESSION: 1. Persistent airspace and groundglass opacities in left lung lower lobe with volume loss, consistent with pneumonia versus atelectasis/scarring. 2. Mild mediastinal, retroperitoneal, and pelvic lymphadenopathy, likely reactive. CT chest/abd/pelvis 01/02/2025: IMPRESSION: CHEST- 1. Left lower lobe atelectasis, aspiration, and/or airspace disease. Improving but persists. 2. Patulous esophagus with wall thickening. Consider endoscopy. 3. Small mediastinal nodes persist. 4. No other acute abnormality. ABDOMEN/PELVIS- 1. Right kidney mass not excluded. Recommend ultrasound and/or MRI. 2. Small scattered nonspecific lymph nodes. Recommend surveillance. 3. No other acute abnormality. Review of Systems Constitutional: Constitutional: Reports as per HPI ENT: Reports as per HPI Cardiovascular: Cardiovascular: Reports as per HPI, Denies chest pain, Denies leg edema, Denies palpitations and Denies dyspnea Respiratory: Respiratory: Denies cough, Denies hemoptysis and Denies dyspnea Gastrointestinal: Gastrointestinal: Reports as per HPI Genitourinary: Genitourinary: Denies hematuria Musculoskeletal: Musculoskeletal: Reports as per HPI Integumentary/Breasts: Skin/Breast: Reports as per HPI Psychiatric: Psychiatric: Reports as per HPI Endocrine: Endocrine: Reports no additional endocrine complaints Hematologic/Lymphatic: Hematologic/Lymphatic: Reports no additional hematologic/lymphatic complaints [facility] Past Medical History Medical History (Updated 02/26/25 @ 10:44 by Nusrat Prasad APRN) Anemia in chronic kidney disease Diabetic gastroparesis Port-A-Cath in place Type 1 diabetes Diagnosed at age 7 Depression Surgical History Surgical History (Updated 02/26/25 @ 10:44 by Nusrat Prasad APRN) S/P dialysis catheter insertion (~2022) Status post insertion of percutaneous endoscopic gastrostomy (PEG) tube For gastric drainage Status post jejunostomy (12/2024) For feeds History of cholecystectomy Family History Family History Other Family history of cardiovascular disease Social History Social History Social History: She is not and does not have any children. She lives with her mother and is on disability. She is a lifelong nonsmoker and does not drink alcohol or use illicit substances. Code status: Full code Surrogate decision maker: Mother Smoking status: Never smoker Alcohol intake: never Substance use: never Substance use type: does not use Lack of Transportation: No Lack of Food: Never True Current Housing: I Have Housing Concerned About Future Housing: No Difficulty Paying Gas/Electric Bills: No Difficulty Paying for Meds: No Currently Unemployed: YES Education: High School Diploma/GED Difficulty w/ Childcare or Family Care: No Gender identity (if verbalized by the patient): Female Spiritual care concerns: No Meds Home Medications and Allergies Home Medications ?Medication ?Instructions ?Recorded ?Confirmed ?Type insulin lispro 100 unit/mL 1 sliding scale dose subcut PRN 06/02/22 02/22/25 History subcutaneous pen losartan 25 mg tablet 25 mg PO DAILY 06/02/22 02/22/25 History amlodipine 10 mg tablet 10 mg PO DAILY 01/01/25 02/22/25 History carvedilol 12.5 mg tablet 12.5 mg PO Q12H 01/01/25 02/22/25 History escitalopram oxalate 10 mg tablet 10 mg PO DAILY 01/01/25 02/22/25 History gabapentin 100 mg capsule 100 mg PO TID 01/01/25 02/22/25 History glucagon 0.5 mg/0.1 mL 0.5 mg subcut PRN PRN hypoglycemia 01/01/25 02/22/25 History subcutaneous auto-injector (Gvoke HypoPen 2-Pack) metoprolol succinate 200 mg 200 mg PO DAILY 01/01/25 02/22/25 History tablet,extended release 24 hr isosorbide mononitrate 30 mg 30 mg PO QAM 30 days #30 tabs 01/05/25 02/22/25 Rx tablet,extended release 24 hr pantoprazole 40 mg tablet,delayed 40 mg PO QAM 30 days #30 tabs 01/05/25 02/22/25 Rx release insulin glargine 100 unit/mL (3 25 unit (0.25 mL) subcut .AM #3 mL 02/16/25 02/22/25 Rx mL) subcutaneous pen (Lantus Solostar U-100 Insulin) ondansetron 4 mg disintegrating 4 mg PO Q6H #60 tabs 02/17/25 02/22/25 Rx tablet Allergies Allergy/AdvReac Type Severity Reaction Status Date / Time metoclopramide (From Reglan) Allergy Intermediate Muscle Verified 02/22/25 18:28 Spasms trimethobenzamide (From Allergy Intermediate hives Verified 02/22/25 18:28 Tigan) hydralazine Allergy Hives Verified 02/22/25 18:28 Vital Signs Vital Signs - 24 hr 02/25/25 09:00 02/25/25 09:15 02/25/25 09:18 Temperature Pulse Rate 85 84 Respiratory Rate Blood Pressure Pulse Oximetry 100 Oxygen Delivery Room Air 02/25/25 12:00 02/25/25 15:32 02/25/25 19:50 Temperature 98.2 F 98.4 F Pulse Rate 86 84 Respiratory Rate 99 H 16 Blood Pressure 128/68 130/76 Pulse Oximetry 100 98 Oxygen Delivery Room Air 02/25/25 20:00 02/25/25 20:25 02/26/25 00:30 Temperature 97.4 F L 97.0 F L Pulse Rate 91 91 80 Respiratory Rate 18 18 Blood Pressure 173/94 H 168/90 H Pulse Oximetry 99 97 Oxygen Delivery 02/26/25 06:00 Temperature 96.2 F L Pulse Rate 73 Respiratory Rate 18 Blood Pressure 177/92 H Pulse Oximetry 99 Oxygen Delivery Exam Const: General: cooperative, healthy appearing, comfortable, no acute distress and well developed Orientation/consciousness: oriented to person, oriented to place, oriented to time and patient oriented x3 HENMT: Head: normal to inspection, normocephalic and atraumatic Mouth: Yes Normal oral and palatal mucosa present and Yes moist mucous membranes Eyes: General: appearance normal, both eyes and all related structures Conjunctivae: conjunctivae normal Sclera: sclerae normal Pupils: Equal, round and reactive pupils present Neck: Neck: normal visual inspection Chest: Chest palpation & inspection: normal inspection of the chest Resp: Effort & Inspection: normal respiratory effort and able to speak in complete sentences Auscultation: clear to auscultation bilaterally Cardio: Jugular venous distension: no JVD Rate: regular rate Rhythm: regular rhythm Heart sounds: S1 normal heart sound present and S2 normal heart sound present GI: Inspection: abnormal to inspection (G tube to LUQ without drainage or signs of infection) GI Palp: Yes Soft to palpation, No Tenderness to palpation present (GI), No Guarding due to palpation present (GI) and Yes No hepatosplenomegaly present Auscultation: normal bowel sounds Rectal Exam: deferred Skin: General skin exam: normal color and no rashes or lesions noted Neuro: General: oriented to person, oriented to place, oriented to time and patient oriented x3 Cranial nerves: Yes Equal, round and reactive pupils present Speech: normal speech Extrem: General: normal to inspection and no clubbing, cyanosis or edema Psych: Appearance: grossly normal and well kempt Affect: normal affect Results Labs 02/26/25 04:57 02/26/25 04:57 Labs: Short CBC 02/26/25 Range/Units 04:57 WBC 4.4 L (4.5-10.0) K/mm3 Hgb 10.7 L (12.0-15.0) g/dL Hct 34.8 L (37.0-47.0) % Plt Count 137 L (150-375) k/mm3 BMP 02/26/25 04:57 Sodium 139 Potassium 4.9 Chloride 101 Carbon Dioxide 27 BUN 30 H Creatinine 7.41 H Glucose 236 H Calcium 7.5 L Liver Function 02/26/25 Range/Units 04:57 Albumin 4.0 (3.5-5.1) g/dL
[2025-02-26] MEDS: ESCITALOPRAM OXALATE 10 MG TABLET PO (09:31)
[2025-02-26] MEDS: GABAPENTIN 100 MG CAPSULE PO ×3 (09:31→17:47)
[2025-02-26] MEDS: ISOSORBIDE MONONITRATE 30 MG TAB.ER.24H PO (09:32)
[2025-02-26] MEDS: PANTOPRAZOLE 40 MG TABLET PO (09:32)
[2025-02-26] MEDS: METOPROLOL SUCCINATE EXT REL 100 MG TABCR 200 MG PO (09:32)
[2025-02-26] MEDS: LOSARTAN POTASSIUM 25 MG TABLET 50 MG PO (09:38)
[2025-02-26] MEDS: INSULIN GLARGINE (*BKC) 100 UNITS/ML SUB-Q ×2 (09:42→21:22)
--- NOTE | 2025-02-26 13:41 | PM.IMPN ---
Progress Note: A&P Assessment and Plan (1) Intractable nausea and vomiting: Code(s): R11.2 - Nausea with vomiting, unspecified Status: Chronic Assessment and Plan: Secondary to history of chronic nausea and vomiting in a patient with known gastroparesis status post Enterra device and G/J tube. Patient uses the gastric portion of her tube to drain stomach contents. Patient given multiple interventions in the ED totaling 2 mg hydromorphone, 50 mg IVP Benadryl, 20 mg IVP Pepcid, 5 mg haloperidol, 4 mg Zofran. Abdominal pelvic CT shows mild wall thickening in the small intestine, large bowel, distal esophagus that could be associated with 3rd spacing however, earlier mild inflammatory infectious changes could look similar. Intolerances to Reglan, tigan, and avoids compazine. -continue Zofran, diphenhydramine IV push -tube feeds: Start 10ml/hr jejunum tube continuous. Can discuss nocturnal feeds if tolerating. Not currently tolerating tube feeds at 10ml/hr due to sharp pains. Would consider a psychogenic component -registered dietitian consulted --Per RN, ate more than half of her meals 02/24-02/25, but patient reports emptying g-tube after eating. Would likely be a portion of meal and not the entire meal given size of tube -consider gravity drain or low intermittent suction for gastric tube to help with nausea due to gastroparesis -continue hydromorphone for pain, need to wean because it will worsen gastroparesis, 1mg>0.5mg q4 prn May be experiencing some tolerance after her recent hospitalization. Patient stopped feeds at 10/ml at hour due to severe pain. --GI consult in AM -Can offer a Dilaudid [employer] pump 0.2mg q15 minutes prn if patient requests. Discussed with her that it would give her the same amount of dilaudid as she can get with 1mg q4 but she preferred the 0.5mg IV pushes for now. Not planning to escalate IV push opiate medications --ambien 2.5hs prn for sleep, feels this was helpful for nausea previously. Did not help this admission --1 dose of diazepam 2.5mg IV tonight --Restart benadryl at 1am, but need to stop/decrease after she talks to GI. --If not improving, discussed transfer to [facility] awaiting GI consult (2) Abdominal pain: Code(s): R10.9 - Unspecified abdominal pain Status: Acute Assessment and Plan: Complicated history with limited medication options. Doesn't feel bentyl helps her. Having diarrhea s/p imodium x1 GI consult if not improving. Discussed with her that there are more limited options at this hospital, will need transfer to [place] if not improving Check ESR, CRP Stool studies: H pylori, Stool culture, C-diff Limit opiates with gastroparesis. Offered a [employer] but patient declined at this time 02/22/25 CT abd/pelvis 1. Mild wall thickening in the small and large bowel as well as the distal esophagus could be associated with third spacing; early or mild inflammatory or infectious changes may have a similar appearance. Correlate clinically. 2. The urinary bladder is mildly distended. No acute surgical abnormality identified. 3. Slightly improved aeration in the left lung base. (3) Hypertension: Qualifiers: Hypertension type: primary hypertension Qualified Code(s): I10 - Essential (primary) hypertension Code(s): I10 - Essential (primary) hypertension Status: Chronic Assessment and Plan: Patient hypertensive on admit -continue metoprolol succinate 200 mg daily, Coreg 12.5 q12, amlodipine 10 mg daily>7.5mg tomorrow if stable -Has an allergy to hydralazine --If not tolerating pills, can add metoprolol IV (4) End stage renal disease on dialysis: Code(s): N18.6 - End stage renal disease; Z99.2 - Dependence on renal dialysis Status: Chronic Assessment and Plan: ESRD on HD TTS. Patient missed her Wednesday dialysis due to not feeling well. She did have a full makeup session prior to admission -nephrology consulted (5) DKA, type 1: Qualifiers: Diabetes mellitus complication detail: without coma Qualified Code(s): E10.10 - Type 1 diabetes mellitus with ketoacidosis without coma Code(s): E10.10 - Type 1 diabetes mellitus with ketoacidosis without coma Status: Chronic Assessment and Plan: Very brittle type 1 diabetic. Diagnosed at age 7. Follows endocrinology at [place]. Patient has hyperglycemic and hypoglycemic events during hospitalizations. - hypoglycemia protocol - POC blood glucose ACHS and Q 6 as patient eats some through the day and gets tube feeding at night. - home medication: Lantus 25 units daily, lispro sliding scale - correct regimen ordered: Lantus 20 units daily--changed to 10 units q12 since eating inconsistently, was 50 overnight. Decrease to 6 units BID for tonight's dose -- low-dose sliding scale with meals and bedtime. Add mealtime insulin if tolerating meals -will closely monitor patient's blood sugar trends. Will likely need several adjustments throughout her hospitalization -Follows with endocrinology outpatient. Planning an insulin pump. Previously counted calories but not currently, just uses a sliding scale at home --Dextrose fluids if needed (6) Acute pain: Code(s): R52 - Pain, unspecified Status: Acute Assessment and Plan: Patient reports pain generalized to abdomen. Same pain as last admission, worsens with tube feeds but doesn't feel it is related to gastroparesis Plan Diet: Diabetic for pleasure feeds/nocturnal tube feeds GI prophylaxis: Pantoprazole DVT prophylaxis: Heparin subQ lines/drains: Port-A-Cath left chest, tunneled dialysis catheter to right chest, GJ tube Fluids: s/p 500 mL NS bolus Code status: Full Subjective Date/time seen: 02/26/25 0730 Interval history: Overnight tried tube feeds for 4 hours at 10ml/hr but reports severe abdominal pain and nausea that was only relieved with dilaudid and benadryl. She reports pain was so severe that she couldn't sleep and was tearful on exam. Said she would be agreeable to reducing dilaudid after speaking with GI RN discussed with her about setting an alarm for benadryl and dilaudid and after the conversation she did ask for tylenol. I discussed with her that benadryl and dilaudid worsen gastroparesis and that it is hard to justify continuing them when gastroparesis can also be source of pain. Blood sugar 50 overnight, repeat normal. Reduced lantus dose to 5 units BID for tonight Planning no escalation of opiates unless she wishes to try a [employer] pump Dilaudid 0.2mg q15 prn RN reports she sets her alarm for opiates and bendryl. Assuming care this am. Awaiting GI consult. Pt is seen and exmained. Review of Systems Review of Systems: All systems reviewed & are unremarkable except as noted in HPI and below Exam Narrative: GENERAL: Appears uncomfortable HEAD: Normocephalic, atraumatic. EYES: PERRLA. Conjunctivae clear. NOSE: Normal no drainage. THROAT: Pharynx clear, no exudate. NECK: Trachea midline. No adenopathy, no masses. CHEST: Left-sided Port-A-Cath in place, right-sided tunnel catheter in place RESPIRATORY: Airway patent, respirations nonlabored. CTA. CARDIOVASCULAR: Regular rate and rhythm BREASTS: Defer GASTROINTESTINAL: Abdomen is soft and generalized tenderness. No organomegaly. Bowel sounds normal in all quadrants. GJ tube in place GENITOURINARY: Defer MUSCULOSKELETAL: Moves all extremities. No gross deformities. SKIN: Warm, dry, normal color. NEURO: A&O X4. Speech clear PSYCHIATRIC: Normal interaction Objective Data Vital Signs Vital Signs: Vital Signs - 24 hr 02/25/25 15:32 02/25/25 19:50 02/25/25 20:00 Temperature 98.4 F 97.4 F L Pulse Rate 84 91 Respiratory Rate 16 18 Blood Pressure 130/76 173/94 H Pulse Oximetry 98 99 Oxygen Delivery Room Air 02/25/25 20:25 02/26/25 00:30 02/26/25 06:00 Temperature 97.0 F L 96.2 F L Pulse Rate 91 80 73 Respiratory Rate 18 18 Blood Pressure 168/90 H 177/92 H Pulse Oximetry 97 99 Oxygen Delivery 02/26/25 09:31 02/26/25 09:32 02/26/25 12:00 Temperature 97.0 F L Pulse Rate 62 62 83 Respiratory Rate 18 Blood Pressure 158/92 H Pulse Oximetry 100 Oxygen Delivery Intake/Output Intake/Output: Intake & Output 02/23/25 02/24/25 02/25/25 02/26/25 23:59 23:59 23:59 23:59 Intake Total 19440 1370 840 Output Total 500 Balance 1944 1650 1370 840 Meds/Results Medications: Active Medications Generic Name Dose Route Start Last Admin Trade Name Freq PRN Reason Stop Dose Admin Acetaminophen 650 mg 02/22/25 16:24 02/25/25 22:46 Acetaminophen 325 Mg Tablet PO 650 mg Q4H PRN Administration Mild Pain (1-3) or Fever Amlodipine Besylate 7.5 mg 02/25/25 09:00 02/26/25 09:31 Amlodipine Besylate 2.5 Mg Tablet PO 7.5 mg DAILY JAYME Administration Carvedilol 12.5 mg 02/22/25 21:00 02/26/25 09:31 Carvedilol 12.5 Mg Tablet PO 12.5 mg Q12H JYAME Administration Dextrose 12.5 gm 02/22/25 18:57 02/25/25 03:45 Dextrose 50% 25 Gm/50 Ml Syringe IV PUSH 12.5 gm PRN PRN Administration Hypoglycemia Protocol Diphenhydramine HCl 50 mg 02/25/25 18:52 02/26/25 09:30 Diphenhydramine Hcl Inj 50 Mg/Ml Vial IV PUSH 50 mg Q4H PRN Administration Nausea And Vomiting Escitalopram Oxalate 10 mg 02/23/25 09:00 02/26/25 09:31 Escitalopram Oxalate 10 Mg Tablet PO 10 mg DAILY JAYME Administration Gabapentin 100 mg 02/22/25 19:05 02/26/25 09:31 Gabapentin 100 Mg Capsule PO 100 mg TID JAYME Administration Glucagon 1 mg 02/22/25 18:57 Glucagon For Inj 1 Mg Vial IM PRN PRN Hypoglycemia Protocol Glucose 15 gm 02/22/25 18:57 Glucose Oral Gel 15 Gm Of Glucse In 37.5 Gm Tube PO PRN PRN Hypoglycemia Protocol Heparin Sodium (Beef Lung) 50 units 02/23/25 09:00 02/26/25 09:30 Heparin Flush 50 Units/5 Ml Syringe IV PUSH 50 units QAM JAYME Administration Heparin Sodium (Beef Lung) 50 units 02/22/25 10:10 Heparin Flush 50 Units/5 Ml Syringe IV PUSH PRN PRN after intermittent infusion Heparin Sodium (Beef Lung) 50 units 02/22/25 10:10 Heparin Flush 50 Units/5 Ml Syringe IV PUSH PRN PRN after blood draws Heparin Sodium (Porcine) 500 units 02/22/25 10:10 Heparin Sodium Lock Flush 500 Units/5 Ml Syringe IV PUSH PRN PRN see comments below Hydromorphone HCl 0.5 mg 02/23/25 14:16 02/26/25 09:30 Hydromorphone Hcl Inj (*Crx) 1 Mg/Ml Syr IV PUSH 0.5 mg Q4H PRN Administration Pain Rated 7-10 Dextrose 1,000 mls @ 100 mls/hr 02/22/25 18:57 Dextrose 5% 1,000 Ml IVPB PRN PRN Hypoglycemia Protocol Albumin Human 50 mls @ 999 mls/hr 02/24/25 05:54 Albutein IVPB Q10M PRN HYPOTENSION Insulin Aspart 2 - 5 units 02/23/25 08:00 02/26/25 08:47 Insulin Aspart (*Bkc) 100 Units/Ml SUB-Q Not Given TIDWM JAYME Protocol Insulin Aspart 1 - 2 units 02/22/25 21:00 02/25/25 21:43 Insulin Aspart (*Bkc) 100 Units/Ml SUB-Q Not Given HS JAYME Protocol Insulin Glargine 5 units 02/25/25 21:00 02/26/25 09:42 Insulin Glargine (*Bkc) 100 Units/Ml SUB-Q 5 units Q12H JAYME Administration Isosorbide Mononitrate 30 mg 02/23/25 09:00 02/26/25 09:32 Isosorbide Mononitrate 30 Mg Tab.Er.24h PO 30 mg QAM JAYME Administration Losartan Potassium 50 mg 02/26/25 09:00 02/26/25 09:38 Losartan Potassium 25 Mg Tablet PO 50 mg DAILY JAYME Administration Metoprolol Succinate 200 mg 02/23/25 09:00 02/26/25 09:32 Metoprolol Succinate Ext Rel 100 Mg Tabcr PO 200 mg DAILY JAYME Administration Ondansetron HCl 4 mg 02/22/25 16:24 Ondansetron Inj 4 Mg/2 Ml Vial IV PUSH Q4H PRN Nausea Pantoprazole Sodium 40 mg 02/23/25 09:00 02/26/25 09:32 Pantoprazole 40 Mg Tablet PO 40 mg QAM JAYME Administration Sodium Chloride 10 ml 02/22/25 14:00 02/26/25 05:02 Central Line Flush IV PUSH 10 ml Q8HR JAYME Administration Zolpidem Tartrate 2.5 mg 02/23/25 14:18 Zolpidem Tartrate (*Crx) 2.5 Mg Tablet PO HS PRN Insomnia Radiology Results: ITS Impressions Chest X-Ray 02/22/25 13:31 IMPRESSION: 1. No acute cardiopulmonary findings given portable technique. Abdomen/Pelvis CT 02/22/25 13:41 IMPRESSION: 1. Mild wall thickening in the small and large bowel as well as the distal esophagus could be associated with third spacing; early or mild inflammatory or infectious changes may have a similar appearance. Correlate clinically. 2. The urinary bladder is mildly distended. No acute surgical abnormality identified. 3. Slightly improved aeration in the left lung base. Labs Labs: Laboratory Results - last 24 hr 02/25/25 02/25/25 02/26/25 16:52 20:36 00:26 WBC RBC Hgb Hct MCV MCH MCHC RDW Plt Count MPV Sodium Potassium Chloride Carbon Dioxide Anion Gap BUN Creatinine Estim Creat Clear Calc Estimated GFR Glucose POC Capillary Glucose 131 H 382 H 349 H Calcium Phosphorus Albumin 02/26/25 02/26/25 02/26/25 04:57 06:40 08:14 WBC 4.4 L RBC 3.78 L Hgb 10.7 L Hct 34.8 L MCV 92.1 MCH 28.3 MCHC 30.7 L RDW 15.2 H Plt Count 137 L MPV 10.8 H Sodium 139 Potassium 4.9 Chloride 101 Carbon Dioxide 27 Anion Gap 11 BUN 30 H Creatinine 7.41 H Estim Creat Clear Calc 9 Estimated GFR 6 L Glucose 236 H POC Capillary Glucose 193 H 146 H Calcium 7.5 L Phosphorus 6.4 H Albumin 4.0 02/26/25 11:29 WBC RBC Hgb Hct MCV MCH MCHC RDW Plt Count MPV Sodium Potassium Chloride Carbon Dioxide Anion Gap BUN Creatinine Estim Creat Clear Calc Estimated GFR Glucose POC Capillary Glucose 191 H Calcium Phosphorus Albumin Quality VTE Prophylaxis VTE prophylaxis: pharmacologic ordered (Patient refusing )
[2025-02-26] MEDS: ACETAMINOPHEN 325 MG TABLET 650 MG PO (20:17)
[2025-02-26] MEDS: INSULIN ASPART (*BKC) 100 UNITS/ML SUB-Q (21:21)
[2025-02-27] VITALS (8 sets, daily range): BP systolic 129–193; BP diastolic 84–107; PULSE 78–102; RESP 16–18; TEMP 36.1–36.3; O2SAT 97–100
[2025-02-27] MEDS: HYDROmorphone HCL INJ (*CRX) 1 MG/ML SYR 0.5 MG IV PUSH ×6 (01:36→22:28)
[2025-02-27] MEDS: CENTRAL LINE FLUSH 10 ML IV PUSH ×3 (05:45→22:28)
[2025-02-27] MEDS: PANTOPRAZOLE 40 MG TABLET PO (09:59)
[2025-02-27] MEDS: GABAPENTIN 100 MG CAPSULE PO ×3 (10:00→17:26)
[2025-02-27] MEDS: ESCITALOPRAM OXALATE 10 MG TABLET PO (10:00)
[2025-02-27] MEDS: ISOSORBIDE MONONITRATE 30 MG TAB.ER.24H PO (10:00)
[2025-02-27] MEDS: LOSARTAN POTASSIUM 25 MG TABLET 50 MG PO (10:00)
[2025-02-27] MEDS: METOPROLOL SUCCINATE EXT REL 100 MG TABCR 200 MG PO (10:01)
[2025-02-27] MEDS: INSULIN GLARGINE (*BKC) 100 UNITS/ML 10 UNITS SUB-Q (10:22)
[2025-02-27] MEDS: INSULIN ASPART (*BKC) 100 UNITS/ML SUB-Q ×3 (10:24→20:31)
--- NOTE | 2025-02-27 10:37 | PCNFU ---
Nutrition Follow-Up Complete: Suboptimal Energy Intake as related to Intractable Nausea/Vomiting as evidenced by J tube feedings intolerance and poor po intake reported. Goal: Meet estimated nutritional needs. Patient will continue current goal. Pt current nutrition is Regular with Nepro J tube feedings aat 10 ml/hr from 6pm-10am. Nutrition recommendation: Recommend increasing tube feedings to Nepro 20 ml/hr. Last recorded weight is 66 kg, down from 68 kg on admit. Bowel Motility: Last reported BM 02/24 Labs Reviewed:PO4 6.4, BUN 30, Cr 7.41, Glu 236, Hct 34.8, Hgb 10.7 Meds Noted:Benadryl, Protonix, Lantus, NovoLog. Skin: WNL Additional Notes: Patient remains on a regular diet. Oral Intake has been 0-50% of most meals. Spoke with patient this morning, she has her tube feeding at 10 ml/hr Nepro running 6pm-10am. She has tolerated all night buts to some nausea. She did eat breakfast toast and eggs. Discussed increasing tube feeding rate to 20 ml/hr tonight. She is agreeable. Tube feeding at 20 ml/hr Nepro providing an additional 576 kcals/26 gm gm protein/233 ml water(16 hours). Flush 100 ml q 4 hours. Patient is refusing Dialysis today. Will monitor weight, labs, skin, diet orders, meds, tube feeding tolerance every Wednesday and Wednesday.
--- NOTE | 2025-02-27 13:56 | P.PNIM_ITS ---
Progress Note: A&P Assessment and Plan (1) S/P percutaneous endoscopic gastrostomy (PEG) tube placement: Code(s): Z93.1 - Gastrostomy status Status: Acute (2) Intractable nausea and vomiting: Code(s): R11.2 - Nausea with vomiting, unspecified Status: Chronic Plan Gastroparesis Intractable nausea -patient had GJ tube placed (01/2025) due to her gastroparesis and not tolerating medical management -she cannot tolerate Reglan, any prokinetic. She has been following a [facility] -antiemetic: Zofran, Benadryl IV -tube feeds will try to titrate up to 20ml/hr -dietitian consulted -patient may ES she can tolerate -pain control p.r.n. IV Dilaudid Chronic conditions -brittle type 1 diabetic: Hypoglycemia protocol, Lantus 5 units b.i.d., sliding scale insulin, Accu-Cheks a.c. HS -chronically elevated LFTs: GI consult believes it may be related to hepatic steatosis not seen on imaging, recommendation for outpatient follow-up with GI at [facility] -essential hypertension: Amlodipine, Imdur, losartan, patient on metoprolol, will discontinue Coreg to prevent double therapy with beta annalisa -depression: Nesha Pandya for insomnia -for diabetic neuropathy: Gabapentin Diet: Tube feeds, regular diet DVT prophylaxis: Ambulatory, SCDs Code status: Full code Disposition: home in 1-2 days Time Spent With Patient Time: 40 minutes Subjective Date/time seen: 02/27/25 13:56 Interval history: Patient seen examined. She is doing well no other complaints. Patient endorses nausea and abdominal discomfort. Denies vomiting. She has a very complicated gastroparesis and type 1 diabetes. Patient a month ago had a GJ tube placed for malnourishment with her poor p.o. intake. She has a GJ tube for tube feeds. We are advancing her feeds to the jejunum tube. Will increase rate to night. There are no medications that she can tolerate for her nausea. No steroids or Reglan. She states trialed prokinetic medications. She will only will accept Benadryl. GI consultation recommended transfer to [facility] otherwise recommending supportive care. Review of Systems Review of Systems: 10 point ROS complete, negative other th an what is specified in HPI. Exam Narrative: - GENERAL: Pleasant woman in No acute d istress. Well-nourished. - EYES: EOMI. Anicteric. - HENT: Moist mucous membranes. - LUNGS: Clear to auscultation bilateral ly, no wheezing, rhonchi, or rales. - CARDIOVASCULAR: Regular rate and rhyth m. Left-sided port - ABDOMEN: Soft, non-tender and non-dist ended. No palpable masses. G-tube in place - EXTREMITIES: No edema. Peripheral puls es 2+. Non-tender. - NEUROLOGIC: No focal neurological defi cits. CN II-XII grossly intact. - PSYCHIATRIC: Awake, Alert and oriented x 3. Appropriate mood and affect. - SKIN: No rashes or lesions. Warm. - LYMPH: No cervical lymphadenopathy. Objective Data Vital Signs Vital Signs: Vital Signs - 24 hr 02/26/25 16:00 02/26/25 20:00 02/27/25 00:55 Temperature 36.1 C L 36.1 C L 36.2 C L Pulse Rate 83 84 78 Respiratory Rate 18 18 18 Blood Pressure 150/88 H 168/91 H 163/94 H Pulse Oximetry 100 100 100 02/27/25 05:55 02/27/25 08:00 02/27/25 10:01 Temperature 36.2 C L 36.3 C L Pulse Rate 80 82 102 H Respiratory Rate 18 16 Blood Pressure 129/97 H 193/107 H Pulse Oximetry 98 99 02/27/25 10:01 02/27/25 12:00 Temperature 36.2 C L Pulse Rate 102 H 79 Respiratory Rate 16 Blood Pressure 143/85 H Pulse Oximetry 99 Intake/Output Intake/Output: Intake & Output 02/24/25 02/25/25 02/26/25 02/27/25 23:59 23:59 23:59 23:59 Intake Total 2150 1370 1320 840 Output Total 500 1000 Balance 1650 1370 1320 -160 Meds/Results Medications: Active Medications Generic Name Dose Route Start Last Admin Trade Name Freq PRN Reason Stop Dose Admin Acetaminophen 650 mg 02/22/25 16:24 02/26/25 20:17 Acetaminophen 325 Mg Tablet PO 650 mg Q4H PRN Administration Mild Pain (1-3) or Fever Amlodipine Besylate 7.5 mg 02/25/25 09:00 02/27/25 10:02 Amlodipine Besylate 2.5 Mg Tablet PO 7.5 mg DAILY JAYME Administration Carvedilol 12.5 mg 02/22/25 21:00 02/27/25 10:01 Carvedilol 12.5 Mg Tablet PO 12.5 mg Q12H JAYME Administration Dextrose 12.5 gm 02/22/25 18:57 02/25/25 03:45 Dextrose 50% 25 Gm/50 Ml Syringe IV PUSH 12.5 gm PRN PRN Administration Hypoglycemia Protocol Diphenhydramine HCl 50 mg 02/25/25 18:52 02/27/25 10:03 Diphenhydramine Hcl Inj 50 Mg/Ml Vial IV PUSH 50 mg Q4H PRN Administration Nausea And Vomiting Epoetin Live-epbx 4,000 units 02/27/25 17:43 Epoetin Live-Epbx 4,000 Units/Ml Vial IV PUSH 02/27/25 17:44 ONCE ONE Escitalopram Oxalate 10 mg 02/23/25 09:00 02/27/25 10:00 Escitalopram Oxalate 10 Mg Tablet PO 10 mg DAILY JAYME Administration Gabapentin 100 mg 02/22/25 19:05 02/27/25 13:19 Gabapentin 100 Mg Capsule PO 100 mg TID JAYME Administration Glucagon 1 mg 02/22/25 18:57 Glucagon For Inj 1 Mg Vial IM PRN PRN Hypoglycemia Protocol Glucose 15 gm 02/22/25 18:57 Glucose Oral Gel 15 Gm Of Glucse In 37.5 Gm Tube PO PRN PRN Hypoglycemia Protocol Heparin Sodium (Beef Lung) 50 units 02/23/25 09:00 02/27/25 10:02 Heparin Flush 50 Units/5 Ml Syringe IV PUSH 50 units QAM JAYME Administration Heparin Sodium (Beef Lung) 50 units 02/22/25 10:10 Heparin Flush 50 Units/5 Ml Syringe IV PUSH PRN PRN after intermittent infusion Heparin Sodium (Beef Lung) 50 units 02/22/25 10:10 Heparin Flush 50 Units/5 Ml Syringe IV PUSH PRN PRN after blood draws Heparin Sodium (Porcine) 500 units 02/22/25 10:10 Heparin Sodium Lock Flush 500 Units/5 Ml Syringe IV PUSH PRN PRN see comments below Hydromorphone HCl 0.5 mg 02/23/25 14:16 02/27/25 10:03 Hydromorphone Hcl Inj (*Crx) 1 Mg/Ml Syr IV PUSH 0.5 mg Q4H PRN Administration Pain Rated 7-10 Dextrose 1,000 mls @ 100 mls/hr 02/22/25 18:57 Dextrose 5% 1,000 Ml IVPB PRN PRN Hypoglycemia Protocol Albumin Human 50 mls @ 999 mls/hr 02/24/25 05:54 Albutein IVPB Q10M PRN HYPOTENSION Insulin Aspart 2 - 5 units 02/23/25 08:00 02/27/25 13:19 Insulin Aspart (*Bkc) 100 Units/Ml SUB-Q 5 units TIDWM JAYME Administration Protocol Insulin Aspart 1 - 2 units 02/22/25 21:00 02/26/25 21:21 Insulin Aspart (*Bkc) 100 Units/Ml SUB-Q 2 units HS JAYME Administration Protocol Insulin Glargine 10 units 02/27/25 09:00 02/27/25 10:22 Insulin Glargine (*Bkc) 100 Units/Ml SUB-Q 10 units Q12H JAYME Administration Isosorbide Mononitrate 30 mg 02/23/25 09:00 02/27/25 10:00 Isosorbide Mononitrate 30 Mg Tab.Er.24h PO 30 mg QAM JAYME Administration Losartan Potassium 50 mg 02/26/25 09:00 02/27/25 10:00 Losartan Potassium 25 Mg Tablet PO 50 mg DAILY JAYME Administration Metoprolol Succinate 200 mg 02/23/25 09:00 02/27/25 10:01 Metoprolol Succinate Ext Rel 100 Mg Tabcr PO 200 mg DAILY JAYME Administration Ondansetron HCl 4 mg 02/22/25 16:24 Ondansetron Inj 4 Mg/2 Ml Vial IV PUSH Q4H PRN Nausea Pantoprazole Sodium 40 mg 02/23/25 09:00 02/27/25 09:59 Pantoprazole 40 Mg Tablet PO 40 mg QAM JAYME Administration Sodium Chloride 10 ml 02/22/25 14:00 02/27/25 05:45 Central Line Flush IV PUSH 10 ml Q8HR JAYME Administration Zolpidem Tartrate 2.5 mg 02/23/25 14:18 Zolpidem Tartrate (*Crx) 2.5 Mg Tablet PO HS PRN Insomnia Radiology Results: ITS Impressions Chest X-Ray 02/22/25 13:31 IMPRESSION: 1. No acute cardiopulmonary findings given portable technique. Abdomen/Pelvis CT 02/22/25 13:41 IMPRESSION: 1. Mild wall thickening in the small and large bowel as well as the distal esophagus could be associated with third spacing; early or mild inflammatory or infectious changes may have a similar appearance. Correlate clinically. 2. The urinary bladder is mildly distended. No acute surgical abnormality identified. 3. Slightly improved aeration in the left lung base. Labs Labs: Laboratory Results - last 24 hr 02/26/25 02/26/25 02/27/25 16:44 21:15 01:35 POC Capillary Glucose 278 H 399 H 447 H 02/27/25 02/27/25 02/27/25 06:30 08:07 11:29 POC Capillary Glucose 330 H 297 H 361 H Quality VTE Prophylaxis VTE prophylaxis: mechanical ordered Hospitalist MIPS Advance Care Plan I have confirmed that the patient's Advanced Care Plan is present, code status is documented, or surrogate decision maker is listed in patient medical record.: Yes Medication Reconciliation I have utilized all available resources to obtain, update and review the patients current medications (includes all prescriptions, OTC, herbals, cannabis, and nutritional supplements).: Yes
--- NOTE | 2025-02-27 15:20 | WPDGIPROGNO ---
Progress Note: A&P Assessment and Plan (1) Nausea & vomiting: Code(s): R11.2 - Nausea with vomiting, unspecified Status: Acute Assessment and Plan: this is chronic will try to change rate of her tube feeding overnight she also can not get some antiemetics due to poor intolerance, also with reglan continue with supportive care, if no major changes then recommend transfer to her GI in [facility] complex case with long standing gastroparesis s/p gastric stimulator, recent G-J placement for extra nutrition will follow as needed (2) Abdominal pain: Code(s): R10.9 - Unspecified abdominal pain Status: Acute (3) S/P percutaneous endoscopic gastrostomy (PEG) tube placement: Code(s): Z93.1 - Gastrostomy status Status: Acute (4) End stage renal disease on dialysis: Code(s): N18.6 - End stage renal disease; Z99.2 - Dependence on renal dialysis Status: Chronic (5) Chronic abdominal pain: Code(s): R10.9 - Unspecified abdominal pain; G89.29 - Other chronic pain Status: Inactive (6) Diabetes mellitus with gastroparesis: Code(s): E11.43 - Type 2 diabetes mellitus with diabetic autonomic (poly)neuropathy Status: Inactive Subjective Date/time seen: 02/27/25 15:20 Interval history: still nauseous, last night with tube feeding and today trying to eat some no major changes Review of Systems Review of Systems: All systems reviewed & are unremarkable except as noted in HPI and below Exam Narrative: - GENERAL: Pleasant woman in No acute distress. Well-nourished. - EYES: EOMI. Anicteric. - HENT: Moist mucous membranes. - LUNGS: Clear to auscultation bilaterally, no wheezing, rhonchi, or rales. - CARDIOVASCULAR: Regular rate and rhythm. Left-sided port - ABDOMEN: Soft, non-tender and non-distended. No palpable masses. G-J tube in place - EXTREMITIES: No edema. Peripheral pulses 2+. Non-tender. - NEUROLOGIC: No focal neurological deficits. - PSYCHIATRIC: Awake, Alert and oriented x 3. Appropriate mood and affect. - SKIN: No rashes or lesions. Warm. - LYMPH: No cervical lymphadenopathy. Objective Data Vital Signs Vital Signs: Vital Signs - 24 hr 02/26/25 16:00 02/26/25 20:00 02/27/25 00:55 Temperature 97.0 F L 97.0 F L 97.2 F L Pulse Rate 83 84 78 Respiratory Rate 18 18 18 Blood Pressure 150/88 H 168/91 H 163/94 H Pulse Oximetry 100 100 100 02/27/25 05:55 02/27/25 08:00 02/27/25 10:01 Temperature 97.1 F L 97.3 F L Pulse Rate 80 82 102 H Respiratory Rate 18 16 Blood Pressure 129/97 H 193/107 H Pulse Oximetry 98 99 02/27/25 10:01 02/27/25 12:00 Temperature 97.1 F L Pulse Rate 102 H 79 Respiratory Rate 16 Blood Pressure 143/85 H Pulse Oximetry 99 Intake/Output Intake/Output: Intake & Output 02/24/25 02/25/25 02/26/25 02/27/25 23:59 23:59 23:59 23:59 Intake Total 2150 1370 1320 840 Output Total 500 1000 Balance 1650 1370 1320 -160 Meds/Results Medications: Active Medications Generic Name Dose Route Start Last Admin Trade Name Freq PRN Reason Stop Dose Admin Acetaminophen 650 mg 02/22/25 16:24 02/26/25 20:17 Acetaminophen 325 Mg Tablet PO 650 mg Q4H PRN Administration Mild Pain (1-3) or Fever Amlodipine Besylate 7.5 mg 02/25/25 09:00 02/27/25 10:02 Amlodipine Besylate 2.5 Mg Tablet PO 7.5 mg DAILY JAYME Administration Dextrose 12.5 gm 02/22/25 18:57 02/25/25 03:45 Dextrose 50% 25 Gm/50 Ml Syringe IV PUSH 12.5 gm PRN PRN Administration Hypoglycemia Protocol Diphenhydramine HCl 50 mg 02/25/25 18:52 02/27/25 14:28 Diphenhydramine Hcl Inj 50 Mg/Ml Vial IV PUSH 50 mg Q4H PRN Administration Nausea And Vomiting Epoetin Live-epbx 4,000 units 02/27/25 17:43 Epoetin Live-Epbx 4,000 Units/Ml Vial IV PUSH 02/27/25 17:44 ONCE ONE Escitalopram Oxalate 10 mg 02/23/25 09:00 02/27/25 10:00 Escitalopram Oxalate 10 Mg Tablet PO 10 mg DAILY JAYME Administration Gabapentin 100 mg 02/22/25 19:05 02/27/25 13:19 Gabapentin 100 Mg Capsule PO 100 mg TID JAYME Administration Glucagon 1 mg 02/22/25 18:57 Glucagon For Inj 1 Mg Vial IM PRN PRN Hypoglycemia Protocol Glucose 15 gm 02/22/25 18:57 Glucose Oral Gel 15 Gm Of Glucse In 37.5 Gm Tube PO PRN PRN Hypoglycemia Protocol Heparin Sodium (Beef Lung) 50 units 02/23/25 09:00 02/27/25 10:02 Heparin Flush 50 Units/5 Ml Syringe IV PUSH 50 units QAM JAYME Administration Heparin Sodium (Beef Lung) 50 units 02/22/25 10:10 Heparin Flush 50 Units/5 Ml Syringe IV PUSH PRN PRN after intermittent infusion Heparin Sodium (Beef Lung) 50 units 02/22/25 10:10 Heparin Flush 50 Units/5 Ml Syringe IV PUSH PRN PRN after blood draws Heparin Sodium (Porcine) 500 units 02/22/25 10:10 Heparin Sodium Lock Flush 500 Units/5 Ml Syringe IV PUSH PRN PRN see comments below Hydromorphone HCl 0.5 mg 02/23/25 14:16 02/27/25 14:28 Hydromorphone Hcl Inj (*Crx) 1 Mg/Ml Syr IV PUSH 0.5 mg Q4H PRN Administration Pain Rated 7-10 Dextrose 1,000 mls @ 100 mls/hr 02/22/25 18:57 Dextrose 5% 1,000 Ml IVPB PRN PRN Hypoglycemia Protocol Albumin Human 50 mls @ 999 mls/hr 02/24/25 05:54 Albutein IVPB Q10M PRN HYPOTENSION Insulin Aspart 2 - 5 units 02/23/25 08:00 02/27/25 13:19 Insulin Aspart (*Bkc) 100 Units/Ml SUB-Q 5 units TIDWM JAYME Administration Protocol Insulin Aspart 1 - 2 units 02/22/25 21:00 02/26/25 21:21 Insulin Aspart (*Bkc) 100 Units/Ml SUB-Q 2 units HS JAYME Administration Protocol Insulin Glargine 5 units 02/27/25 21:00 Insulin Glargine (*Bkc) 100 Units/Ml SUB-Q Q12H [facility] Isosorbide Mononitrate 30 mg 02/23/25 09:00 02/27/25 10:00 Isosorbide Mononitrate 30 Mg Tab.Er.24h PO 30 mg QAM JAYME Administration Losartan Potassium 50 mg 02/26/25 09:00 02/27/25 10:00 Losartan Potassium 25 Mg Tablet PO 50 mg DAILY JAYME Administration Metoprolol Succinate 200 mg 02/23/25 09:00 02/27/25 10:01 Metoprolol Succinate Ext Rel 100 Mg Tabcr PO 200 mg DAILY JAYME Administration Ondansetron HCl 4 mg 02/22/25 16:24 Ondansetron Inj 4 Mg/2 Ml Vial IV PUSH Q4H PRN Nausea Pantoprazole Sodium 40 mg 02/23/25 09:00 02/27/25 09:59 Pantoprazole 40 Mg Tablet PO 40 mg QAM JAYME Administration Sodium Chloride 10 ml 02/22/25 14:00 02/27/25 14:33 Central Line Flush IV PUSH 10 ml Q8HR JAYME Administration Zolpidem Tartrate 2.5 mg 02/23/25 14:18 Zolpidem Tartrate (*Crx) 2.5 Mg Tablet PO HS PRN Insomnia Radiology Results: ITS Impressions Chest X-Ray 02/22/25 13:31 IMPRESSION: 1. No acute cardiopulmonary findings given portable technique. Abdomen/Pelvis CT 02/22/25 13:41 IMPRESSION: 1. Mild wall thickening in the small and large bowel as well as the distal esophagus could be associated with third spacing; early or mild inflammatory or infectious changes may have a similar appearance. Correlate clinically. 2. The urinary bladder is mildly distended. No acute surgical abnormality identified. 3. Slightly improved aeration in the left lung base. Labs Labs: Laboratory Results - last 24 hr 02/26/25 02/26/25 02/27/25 16:44 21:15 01:35 POC Capillary Glucose 278 H 399 H 447 H 02/27/25 02/27/25 02/27/25 06:30 08:07 11:29 POC Capillary Glucose 330 H 297 H 361 H
[2025-02-27] MEDS: INSULIN GLARGINE (*BKC) 100 UNITS/ML SUB-Q (20:30)
[2025-02-28] VITALS (31 sets, daily range): BP systolic 162–215; BP diastolic 87–115; PULSE 80–95; RESP 16–20; TEMP 36.2–37; O2SAT 94–100
[2025-02-28] MEDS: CENTRAL LINE FLUSH 10 ML IV PUSH ×3 (02:25→20:22)
[2025-02-28] MEDS: HYDROmorphone HCL INJ (*CRX) 1 MG/ML SYR 0.5 MG IV PUSH ×6 (02:25→22:25)
[2025-02-28 05:14] LABS: Hematocrit 32.7 % (37.0-47.0); Hemoglobin 10.1 g/dL (12.0-15.0); Mean Corpuscular HGB Conc 30.9 g/dl (32-36); Mean Corpuscular Hemoglobin 28.6 pg (26-34); Mean Corpuscular Volume 92.6 fl (80-100); Platelet Count Result 139 k/mm3 (150-375); Red Blood Count 3.53 M/mm3 (4.2-5.4); White Blood Count 5.2 K/mm3 (4.5-10.0)
[2025-02-28 06:44] LABS: Anion Gap 12 mmol/L (4-12); Blood Urea Nitrogen 59 mg/dL (7-17); Calcium 8.1 mg/dL (8.4-10.2); Carbon Dioxide 24 mmol/L (22-30); Chloride 99 mmol/L (98-107); Estimated CRCL calculation 7 ml/min; Estimated Glomerular Filt Rate 5; Glucose 309 mg/dL (65-110); Magnesium 2.4 mg/dL (1.6-2.3); Potassium 6.6 mmol/L (3.4-5.0); Sodium 135 mmol/L (137-145)
--- NOTE | 2025-02-28 06:49 | ECG_ITS ---
Test Date: 2025-02-28 07:02:30 Measurements Intervals [place] Rate: 79 P: 152 VT: 285 QRS: 17 QRSD: 93 T: 74 QT: 408 QTc: 470 Interpretive Statements SINUS RHYTHM SIGNIFICANT ARTIFACT POSSIBLY FROM NEUROSTIMULATOR ABNORMAL RHYTHM ECG Compared to ECG 02/22/2025 17:33:10 T-wave abnormality now present Sinus rhythm no longer present Electronically Signed On 02-28-2025 13:17:36 [employer] by Shaq Pretty M.D.
[2025-02-28] MEDS: ALBUTEROL SULFATE NEB 2.5 MG/3 ML INH 15 MG INHALATION (07:07)
[2025-02-28] MEDS: SODIUM ZIRCONIUM CYCLOSILICATE 10 GM POWD.PACK PO (07:30)
[2025-02-28] MEDS: CALCIUM GLUC 1,000 MG/NS 50 ML 1,000 MG/50 ML BAG 100 MG IVPB (07:36)
[2025-02-28] MEDS: DEXTROSE 50% 25 GM/50 ML SYRINGE IV PUSH (07:57)
[2025-02-28] MEDS: INSULIN HUMAN REGULAR (*BKC) 100 UNITS/ML IV PUSH (07:58)
[2025-02-28] MEDS: SODIUM BICARBONATE 8.4% 50 MEQ/50 ML SYRINGE IV PUSH (08:05)
[2025-02-28] MEDS: INSULIN GLARGINE (*BKC) 100 UNITS/ML SUB-Q ×2 (09:36→20:21)
[2025-02-28] MEDS: INSULIN ASPART (*BKC) 100 UNITS/ML SUB-Q ×2 (09:36→20:19)
[2025-02-28] MEDS: EPOETIN ALFA-EPBX 4,000 UNITS/ML VIAL 4000 UNITS IV PUSH (11:06)
--- NOTE | 2025-02-28 12:05 | P.PNNP_ITS ---
Progress Note: A&P Assessment and Plan (1) End stage renal disease: Code(s): N18.6 - End stage renal disease Status: Chronic Assessment and Plan: * HD today (refused dialysis treatment yesterday) * eventually transition back to //Wednesday dialysis schedule while hospitalized * follow volume status, clearance, and electrolytes * high K+ noted today -- presumably due to missed HD treatment on 02/27 * outpatient dialysis clinic = [facility] in [place] * primary furniture manager = Dr. Odilon Tellez (2) Intractable nausea and vomiting: Code(s): R11.2 - Nausea with vomiting, unspecified Status: Chronic Assessment and Plan: * chronic and long standing issue (per patient and review of records) * cyclic in nature -- just discharged for this same issue on 02/17/25 * thought to be secondary to diabetic gastroparesis * s/p G-J-tube placement to ensure adequate/supplemental nutrition given this issue * continue instituted therapy (3) Diabetic gastroparesis: Code(s): E11.43 - Type 2 diabetes mellitus with diabetic autonomic (poly)neuropathy; K31.84 - Gastroparesis Status: Chronic Assessment and Plan: * known and long standing issue * likely precipiting factor for admission symptoms (4) Anemia: Code(s): D64.9 - Anemia, unspecified Status: Chronic Assessment and Plan: * due to ESRD * Epogen with HD * follow trend of H/H (5) Hypertension: Qualifiers: Hypertension type: primary hypertension Qualified Code(s): I10 - Essential (primary) hypertension Code(s): I10 - Essential (primary) hypertension Status: Chronic Assessment and Plan: * elevated at this time * did not get BP medications prior to dialysis * if remains elevated, consider titration of losartan and/or amlodipine versus changing amlodipine to nifedipine XL * follow trend of hemodynamics (6) Type 1 diabetes: Qualifiers: Diabetes mellitus complication status: with hyperglycemia Qualified Code(s): E10.65 - Type 1 diabetes mellitus with hyperglycemia Code(s): E10.9 - Type 1 diabetes mellitus without complications Status: Chronic Assessment and Plan: * follow accu-cheks * glycemic control per hospitalist As mentioned on initial consultation, she was usually getting all of her care at [facility] in [place] prior to her recent hospitalizations here at [facility] since December 2024 -- review of records from [facility] mention the concern for drug seeking behavior due to her insistence of the use of IV bendaryl and IV dilaudid for symptom control related to her nausea/vomiting and abdominal pain issues, respectively. As a result, these medication administrations have been limited/reduced when she last presented to [facility] ER and seemingly resulted in her leaving AMA. Will continue to follow. L Subjective Date/time seen: 02/28/25 12:05 Interval history: Follow-up for end stage renal disease on hemodialysis. Tolerating dialysis treatment at the time of my visit (seen on HD at 11:55am); refused dialysis yesterday (her usual scheduled treatment day) and noted subsequent hyperkalemia by AM labs; BP elevated by AM BP medication held in ancipitation of dialysis treatment today. Exam 2 Narrative: General: WD/WN female in NAD Heart: normal S1 and S2; no rub Lungs: clear anteriorly Abdomen: soft, nontender, nondistended, positive bowel sounds Extremities: no cyanosis or clubbing; no edema Skin: warm and dry Objective Data Vital Signs Vital Signs: Vital Signs Temp Pulse Resp BP Pulse Ox O2 Del Method FiO2 02/28/25 12:01 89 196/112 H 02/28/25 11:45 90 200/111 H 02/28/25 11:30 91 200/110 H 02/28/25 11:15 90 193/111 H 02/28/25 11:00 89 190/103 H 02/28/25 10:45 88 193/105 H 02/28/25 10:30 92 176/107 H 02/28/25 10:15 93 181/101 H 02/28/25 10:00 91 180/105 H 02/28/25 09:45 91 183/107 H 02/28/25 09:30 92 176/100 H 02/28/25 09:15 90 191/114 H 02/28/25 08:58 89 173/110 H 02/28/25 08:43 98.1 F 88 16 190/109 H 100 02/28/25 08:33 89 20 02/28/25 08:00 Room Air 02/28/25 07:53 84 18 02/28/25 07:07 82 18 02/28/25 07:07 82 94 Room Air 21 02/28/25 06:00 97.2 F L 80 18 189/113 H 99 02/28/25 01:41 97.8 F 81 18 171/90 H 100 02/27/25 22:00 97.4 F L 84 18 166/84 H 97 02/27/25 20:00 Room Air 02/27/25 16:00 96.9 F L 81 18 152/94 H 100 Intake/Output Intake/Output: Intake & Output 02/25/25 02/26/25 02/27/25 02/28/25 23:59 23:59 23:59 23:59 Intake Total 1370 1320 1630 1030 Output Total 1000 3200 Balance 1370 1320 630 -2170 Meds/Results Medications: Active Medications Generic Name Dose Route Start Last Admin Trade Name Freq PRN Reason Stop Dose Admin Acetaminophen 650 mg 02/22/25 16:24 02/26/25 20:17 Acetaminophen 325 Mg Tablet PO 650 mg Q4H PRN Administration Mild Pain (1-3) or Fever Amlodipine Besylate 7.5 mg 02/25/25 09:00 02/28/25 12:31 Amlodipine Besylate 2.5 Mg Tablet PO 7.5 mg DAILY JAYME Administration Dextrose 12.5 gm 02/22/25 18:57 02/25/25 03:45 Dextrose 50% 25 Gm/50 Ml Syringe IV PUSH 12.5 gm PRN PRN Administration Hypoglycemia Protocol Diphenhydramine HCl 50 mg 02/25/25 18:52 02/28/25 10:38 Diphenhydramine Hcl Inj 50 Mg/Ml Vial IV PUSH 50 mg Q4H PRN Administration Nausea And Vomiting Escitalopram Oxalate 10 mg 02/23/25 09:00 02/28/25 12:31 Escitalopram Oxalate 10 Mg Tablet PO 10 mg DAILY JAYME Administration Gabapentin 100 mg 02/22/25 19:05 02/28/25 12:34 Gabapentin 100 Mg Capsule PO Not Given TID JAYME Glucagon 1 mg 02/22/25 18:57 Glucagon For Inj 1 Mg Vial IM PRN PRN Hypoglycemia Protocol Glucose 15 gm 02/22/25 18:57 Glucose Oral Gel 15 Gm Of Glucse In 37.5 Gm Tube PO PRN PRN Hypoglycemia Protocol Heparin Sodium (Beef Lung) 50 units 02/23/25 09:00 02/28/25 08:08 Heparin Flush 50 Units/5 Ml Syringe IV PUSH 50 units QAM JAYME Administration Heparin Sodium (Beef Lung) 50 units 02/22/25 10:10 Heparin Flush 50 Units/5 Ml Syringe IV PUSH PRN PRN after intermittent infusion Heparin Sodium (Beef Lung) 50 units 02/22/25 10:10 Heparin Flush 50 Units/5 Ml Syringe IV PUSH PRN PRN after blood draws Heparin Sodium (Porcine) 500 units 02/22/25 10:10 Heparin Sodium Lock Flush 500 Units/5 Ml Syringe IV PUSH PRN PRN see comments below Hydromorphone HCl 0.5 mg 02/23/25 14:16 02/28/25 10:38 Hydromorphone Hcl Inj (*Crx) 1 Mg/Ml Syr IV PUSH 0.5 mg Q4H PRN Administration Pain Rated 7-10 Dextrose 1,000 mls @ 100 mls/hr 02/22/25 18:57 Dextrose 5% 1,000 Ml IVPB PRN PRN Hypoglycemia Protocol Albumin Human 50 mls @ 999 mls/hr 02/24/25 05:54 Albutein IVPB Q10M PRN HYPOTENSION Insulin Aspart 2 - 5 units 02/23/25 08:00 02/28/25 12:31 Insulin Aspart (*Bkc) 100 Units/Ml SUB-Q Not Given TIDWM JAYME Protocol Insulin Aspart 1 - 2 units 02/22/25 21:00 02/27/25 20:31 Insulin Aspart (*Bkc) 100 Units/Ml SUB-Q 2 units HS JAYME Administration Protocol Insulin Glargine 5 units 02/27/25 21:00 02/28/25 09:36 Insulin Glargine (*Bkc) 100 Units/Ml SUB-Q 5 units Q12H JAYME Administration Isosorbide Mononitrate 30 mg 02/23/25 09:00 02/28/25 12:31 Isosorbide Mononitrate 30 Mg Tab.Er.24h PO 30 mg QAM JAYME Administration Losartan Potassium 50 mg 02/26/25 09:00 02/27/25 10:00 Losartan Potassium 25 Mg Tablet PO 50 mg On Hold: 02/28/25 08:13 DAILY JAYME Administration Metoprolol Succinate 200 mg 02/23/25 09:00 02/28/25 12:31 Metoprolol Succinate Ext Rel 100 Mg Tabcr PO 200 mg DAILY JAYME Administration Ondansetron HCl 4 mg 02/22/25 16:24 Ondansetron Inj 4 Mg/2 Ml Vial IV PUSH Q4H PRN Nausea Pantoprazole Sodium 40 mg 02/23/25 09:00 02/28/25 12:31 Pantoprazole 40 Mg Tablet PO 40 mg QAM JAYME Administration Sodium Chloride 10 ml 02/22/25 14:00 02/28/25 02:25 Central Line Flush IV PUSH 10 ml Q8HR JAYME Administration Zolpidem Tartrate 2.5 mg 02/23/25 14:18 Zolpidem Tartrate (*Crx) 2.5 Mg Tablet PO HS PRN Insomnia Radiology Results: ITS Impressions Chest X-Ray 02/22/25 13:31 IMPRESSION: 1. No acute cardiopulmonary findings given portable technique. Abdomen/Pelvis CT 02/22/25 13:41 IMPRESSION: 1. Mild wall thickening in the small and large bowel as well as the distal esophagus could be associated with third spacing; early or mild inflammatory or infectious changes may have a similar appearance. Correlate clinically. 2. The urinary bladder is mildly distended. No acute surgical abnormality identified. 3. Slightly improved aeration in the left lung base. Labs Labs: Laboratory Tests 02/28/25 05:07 02/28/25 05:53 Calcium 8.1 L Phosphorus 7.1 H Magnesium 2.4 H Microbiology 02/22/25 19:30 Blood Blood Culture - Final 02/22/25 19:30 Blood Blood Culture - Final
[2025-02-28] MEDS: METOPROLOL SUCCINATE EXT REL 100 MG TABCR 200 MG PO (12:31)
[2025-02-28] MEDS: GABAPENTIN 100 MG CAPSULE PO (12:31)
[2025-02-28] MEDS: PANTOPRAZOLE 40 MG TABLET PO (12:31)
[2025-02-28] MEDS: ESCITALOPRAM OXALATE 10 MG TABLET PO (12:31)
[2025-02-28] MEDS: ISOSORBIDE MONONITRATE 30 MG TAB.ER.24H PO (12:31)
--- NOTE | 2025-02-28 14:27 | P.PNIM_ITS ---
Progress Note: A&P Assessment and Plan (1) Depression: Code(s): F32.9 - Major depressive disorder, single episode, unspecified Status: Acute (2) S/P percutaneous endoscopic gastrostomy (PEG) tube placement: Code(s): Z93.1 - Gastrostomy status Status: Acute (3) Nausea & vomiting: Code(s): R11.2 - Nausea with vomiting, unspecified Status: Acute (4) Malingering: Code(s): Z76.5 - Malingerer [conscious simulation] Status: Acute Plan Gastroparesis Intractable nausea Malingering -patient had GJ tube placed (01/2025) due to her gastroparesis and not tolerating medical management -she cannot tolerate Reglan, any prokinetic. She has been following a [facility] -antiemetic: Zofran, Benadryl IV -tube feeds will try to titrate up to 20ml/hr, she did not try late last night due to nausea will try again tonight -dietitian consulted -patient may ES she can tolerate -pain control p.r.n. IV Dilaudid Chronic conditions -brittle type 1 diabetic: Hypoglycemia protocol, Lantus 5 units b.i.d., sliding scale insulin, Accu-Cheks a.c. HS -chronically elevated LFTs: GI consult believes it may be related to hepatic steatosis not seen on imaging, recommendation for outpatient follow-up with GI at [facility] -essential hypertension: Amlodipine, stop Imdur, losartan, metoprolol ER to tartrate 100mg BID, will discontinue Coreg to prevent double therapy with beta annalisa -depression: Nesha Pandya for insomnia -for diabetic neuropathy: Gabapentin -malingering: I had an extensive conversation with patient for 30 minutes. Patient explaining her history of type 1 diabetes and having issues with nausea for the last 5 years. Her nausea has been so bad that she previously was pursuing hospice at [facility] but her mother talked her out of it. She is now pursuing palliative care for a pain pump. Patient is requiring IV Dilaudid and Benadryl. She states she has depression but I believe she has severe depression leading to self-harm. She states she is nauseous and unable to tolerate the post pyloric tube feed. Despite being nauseous she has eaten her entire lunch. She follows at [facility]. they considered gastrectomy, before but now are trailing the post-pyloric feeding tubes. she failed to follow up with them when having issues with the tube feeds. Diet: Tube feeds, regular diet DVT prophylaxis: Ambulatory, SCDs Code status: Full code Disposition: home tomorrow Time Spent With Patient Time: 50 minutes Subjective Date/time seen: 02/28/25 14:27 Interval history: Patient seen and examined. Elevated blood pressure since she missed her morning blood pressure meds before dialysis. She had she had missed dialysis yesterday she was with hyperkalemia this morning of 6.6. Patient had dialysis today and we have resumed home blood pressure meds. She will discharge home tomorrow. We will do tube feeds 20 cc/hour overnight. She will follow-up with her palliative care doctor for pain management. She endorses nausea denies chest pain, shortness of breath. She ate her entire lunch despite nausea. Review of Systems Review of Systems: 10 point ROS complete, negative other th an what is specified in HPI. Exam Narrative: - GENERAL: Pleasant woman in No acute d istress. Well-nourished. - EYES: EOMI. Anicteric. - HENT: Moist mucous membranes. - LUNGS: Clear to auscultation bilateral ly, no wheezing, rhonchi, or rales. - CARDIOVASCULAR: Regular rate and rhyth m. Left-sided port - ABDOMEN: Soft, non-tender and non-dist ended. No palpable masses. G-tube in place - EXTREMITIES: No edema. Peripheral puls es 2+. Non-tender. - NEUROLOGIC: No focal neurological defi cits. CN II-XII grossly intact. - PSYCHIATRIC: Awake, Alert and oriented x 3. Appropriate mood and affect. - SKIN: No rashes or lesions. Warm. - LYMPH: No cervical lymphadenopathy. Objective Data Vital Signs Vital Signs: Vital Signs - 24 hr 02/27/25 16:00 02/27/25 20:00 02/27/25 22:00 Temperature 36.1 C L 36.3 C L Pulse Rate 81 84 Respiratory Rate 18 18 Blood Pressure 152/94 H 166/84 H Pulse Oximetry 100 97 Oxygen Delivery Room Air Fraction of Inspired Oxygen 02/28/25 01:41 02/28/25 06:00 02/28/25 07:07 Temperature 36.6 C 36.2 C L Pulse Rate 81 80 82 Respiratory Rate 18 18 Blood Pressure 171/90 H 189/113 H Pulse Oximetry 100 99 94 Oxygen Delivery Room Air Fraction of Inspired Oxygen 21 02/28/25 07:07 02/28/25 07:53 02/28/25 08:00 Temperature Pulse Rate 82 84 Respiratory Rate 18 18 Blood Pressure Pulse Oximetry Oxygen Delivery Room Air Fraction of Inspired Oxygen 02/28/25 08:33 02/28/25 08:43 02/28/25 08:58 Temperature 36.7 C Pulse Rate 89 88 89 Respiratory Rate 20 16 Blood Pressure 190/109 H 173/110 H Pulse Oximetry 100 Oxygen Delivery Fraction of Inspired Oxygen 02/28/25 09:15 02/28/25 09:30 02/28/25 09:45 Temperature Pulse Rate 90 92 91 Respiratory Rate Blood Pressure 191/114 H 176/100 H 183/107 H Pulse Oximetry Oxygen Delivery Fraction of Inspired Oxygen 02/28/25 10:00 02/28/25 10:15 02/28/25 10:30 Temperature Pulse Rate 91 93 92 Respiratory Rate Blood Pressure 180/105 H 181/101 H 176/107 H Pulse Oximetry Oxygen Delivery Fraction of Inspired Oxygen 02/28/25 10:45 02/28/25 11:00 02/28/25 11:15 Temperature Pulse Rate 88 89 90 Respiratory Rate Blood Pressure 193/105 H 190/103 H 193/111 H Pulse Oximetry Oxygen Delivery Fraction of Inspired Oxygen 02/28/25 11:30 02/28/25 11:45 02/28/25 12:01 Temperature Pulse Rate 91 90 89 Respiratory Rate Blood Pressure 200/110 H 200/111 H 196/112 H Pulse Oximetry Oxygen Delivery Fraction of Inspired Oxygen 02/28/25 12:08 02/28/25 12:31 02/28/25 12:42 Temperature 36.8 C 36.3 C L Pulse Rate 91 91 92 Respiratory Rate 16 17 Blood Pressure 215/115 H 204/111 H Pulse Oximetry 100 99 Oxygen Delivery Fraction of Inspired Oxygen 02/28/25 13:52 Temperature 36.2 C L Pulse Rate 89 Respiratory Rate 18 Blood Pressure 162/103 H Pulse Oximetry 100 Oxygen Delivery Fraction of Inspired Oxygen Intake/Output Intake/Output: Intake & Output 02/25/25 02/26/25 02/27/25 02/28/25 23:59 23:59 23:59 23:59 Intake Total 1370 1320 1630 1030 Output Total 1000 3200 Balance 1370 1320 630 -2170 Meds/Results Medications: Active Medications Generic Name Dose Route Start Last Admin Trade Name Freq PRN Reason Stop Dose Admin Acetaminophen 650 mg 02/22/25 16:24 02/26/25 20:17 Acetaminophen 325 Mg Tablet PO 650 mg Q4H PRN Administration Mild Pain (1-3) or Fever Amlodipine Besylate 7.5 mg 02/25/25 09:00 02/28/25 12:31 Amlodipine Besylate 2.5 Mg Tablet PO 7.5 mg DAILY JAYME Administration Dextrose 12.5 gm 02/22/25 18:57 02/25/25 03:45 Dextrose 50% 25 Gm/50 Ml Syringe IV PUSH 12.5 gm PRN PRN Administration Hypoglycemia Protocol Diphenhydramine HCl 50 mg 02/25/25 18:52 02/28/25 10:38 Diphenhydramine Hcl Inj 50 Mg/Ml Vial IV PUSH 50 mg Q4H PRN Administration Nausea And Vomiting Escitalopram Oxalate 10 mg 02/23/25 09:00 02/28/25 12:31 Escitalopram Oxalate 10 Mg Tablet PO 10 mg DAILY JAYME Administration Gabapentin 100 mg 02/22/25 19:05 02/28/25 12:34 Gabapentin 100 Mg Capsule PO Not Given TID JAYME Glucagon 1 mg 02/22/25 18:57 Glucagon For Inj 1 Mg Vial IM PRN PRN Hypoglycemia Protocol Glucose 15 gm 02/22/25 18:57 Glucose Oral Gel 15 Gm Of Glucse In 37.5 Gm Tube PO PRN PRN Hypoglycemia Protocol Heparin Sodium (Beef Lung) 50 units 02/23/25 09:00 02/28/25 08:08 Heparin Flush 50 Units/5 Ml Syringe IV PUSH 50 units QAM JAYME Administration Heparin Sodium (Beef Lung) 50 units 02/22/25 10:10 Heparin Flush 50 Units/5 Ml Syringe IV PUSH PRN PRN after intermittent infusion Heparin Sodium (Beef Lung) 50 units 02/22/25 10:10 Heparin Flush 50 Units/5 Ml Syringe IV PUSH PRN PRN after blood draws Heparin Sodium (Porcine) 500 units 02/22/25 10:10 Heparin Sodium Lock Flush 500 Units/5 Ml Syringe IV PUSH PRN PRN see comments below Hydromorphone HCl 0.5 mg 02/23/25 14:16 02/28/25 10:38 Hydromorphone Hcl Inj (*Crx) 1 Mg/Ml Syr IV PUSH 0.5 mg Q4H PRN Administration Pain Rated 7-10 Dextrose 1,000 mls @ 100 mls/hr 02/22/25 18:57 Dextrose 5% 1,000 Ml IVPB PRN PRN Hypoglycemia Protocol Albumin Human 50 mls @ 999 mls/hr 02/24/25 05:54 Albutein IVPB Q10M PRN HYPOTENSION Insulin Aspart 2 - 5 units 02/23/25 08:00 02/28/25 12:31 Insulin Aspart (*Bkc) 100 Units/Ml SUB-Q Not Given TIDWM JAYME Protocol Insulin Aspart 1 - 2 units 02/22/25 21:00 02/27/25 20:31 Insulin Aspart (*Bkc) 100 Units/Ml SUB-Q 2 units HS JAYME Administration Protocol Insulin Glargine 5 units 02/27/25 21:00 02/28/25 09:36 Insulin Glargine (*Bkc) 100 Units/Ml SUB-Q 5 units Q12H JAYME Administration Isosorbide Mononitrate 30 mg 02/23/25 09:00 02/28/25 12:31 Isosorbide Mononitrate 30 Mg Tab.Er.24h PO 30 mg QAM JAYME Administration Losartan Potassium 50 mg 02/26/25 09:00 02/27/25 10:00 Losartan Potassium 25 Mg Tablet PO 50 mg On Hold: 02/28/25 08:13 DAILY JAYME Administration Metoprolol Succinate 200 mg 02/23/25 09:00 02/28/25 12:31 Metoprolol Succinate Ext Rel 100 Mg Tabcr PO 200 mg DAILY JAYME Administration Ondansetron HCl 4 mg 02/22/25 16:24 Ondansetron Inj 4 Mg/2 Ml Vial IV PUSH Q4H PRN Nausea Pantoprazole Sodium 40 mg 02/23/25 09:00 02/28/25 12:31 Pantoprazole 40 Mg Tablet PO 40 mg QAM JAYME Administration Sodium Chloride 10 ml 02/22/25 14:00 02/28/25 02:25 Central Line Flush IV PUSH 10 ml Q8HR JAYME Administration Zolpidem Tartrate 2.5 mg 02/23/25 14:18 Zolpidem Tartrate (*Crx) 2.5 Mg Tablet PO HS PRN Insomnia Radiology Results: ITS Impressions Chest X-Ray 02/22/25 13:31 IMPRESSION: 1. No acute cardiopulmonary findings given portable technique. Abdomen/Pelvis CT 02/22/25 13:41 IMPRESSION: 1. Mild wall thickening in the small and large bowel as well as the distal esophagus could be associated with third spacing; early or mild inflammatory or infectious changes may have a similar appearance. Correlate clinically. 2. The urinary bladder is mildly distended. No acute surgical abnormality identified. 3. Slightly improved aeration in the left lung base. Labs Labs: Laboratory Results - last 24 hr 02/27/25 02/27/25 02/28/25 16:33 20:19 01:31 WBC RBC Hgb Hct MCV MCH MCHC RDW Plt Count MPV Sodium Potassium Chloride Carbon Dioxide Anion Gap BUN Creatinine Estim Creat Clear Calc Estimated GFR Glucose POC Capillary Glucose 138 H 370 H 422 H Calcium Phosphorus Magnesium 02/28/25 02/28/25 02/28/25 05:05 05:07 05:53 WBC 5.2 RBC 3.53 L Hgb 10.1 L Hct 32.7 L MCV 92.6 MCH 28.6 MCHC 30.9 L RDW 14.8 H Plt Count 139 L MPV 11.1 H Sodium 135 L Potassium 6.6 H* Chloride 99 Carbon Dioxide 24 Anion Gap 12 BUN 59 H D Creatinine 10.01 H Estim Creat Clear Calc 7 Estimated GFR 5 L Glucose 309 H POC Capillary Glucose 345 H Calcium 8.1 L Phosphorus 7.1 H Magnesium 2.4 H 02/28/25 02/28/25 02/28/25 07:39 08:36 12:25 WBC RBC Hgb Hct MCV MCH MCHC RDW Plt Count MPV Sodium Potassium Chloride Carbon Dioxide Anion Gap BUN Creatinine Estim Creat Clear Calc Estimated GFR Glucose POC Capillary Glucose 267 H 210 H 156 H Calcium Phosphorus Magnesium
[2025-02-28] MEDS: GABAPENTIN 100 MG CAPSULE FEED TUBE (18:05)
[2025-02-28] MEDS: METOPROLOL TARTRATE 50 MG TAB 100 MG FEED TUBE (20:21)
--- NOTE | 2025-02-28 22:42 | PC.NURSE ---
Patient still setting her alarm clock on her phone for her IV benadryl and dilaudid. Instructed that she doesnt need to do that. Patient states, i have to make sure i get my IV meds on time to keep my nausea away.
[2025-03-01] VITALS (12 sets, daily range): BP systolic 159–188; BP diastolic 87–97; PULSE 78–86; RESP 18; TEMP 36–36.7; O2SAT 97–99
[2025-03-01] MEDS: HYDROmorphone HCL INJ (*CRX) 1 MG/ML SYR 0.5 MG IV PUSH ×2 (02:41→06:26)
[2025-03-01] MEDS: CENTRAL LINE FLUSH 10 ML IV PUSH (06:26)
[2025-03-01] MEDS: INSULIN ASPART (*BKC) 100 UNITS/ML SUB-Q (08:27)
[2025-03-01] MEDS: INSULIN GLARGINE (*BKC) 100 UNITS/ML SUB-Q (08:27)
[2025-03-01] MEDS: METOPROLOL TARTRATE 50 MG TAB 100 MG FEED TUBE (08:28)
[2025-03-01] MEDS: PANTOPRAZOLE 40 MG TABLET PO (08:32)
[2025-03-01] MEDS: GABAPENTIN 100 MG CAPSULE FEED TUBE (08:32)
[2025-03-01] MEDS: ESCITALOPRAM OXALATE 10 MG TABLET FEED TUBE (08:33)
--- NOTE | 2025-03-01 08:49 | P.DS_ITS ---
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 Patient has chronic nausea and vomiting from gastroparesis for which she follows with GI at [facility]. Patient had a GJ tube placed for jejunal feeds. She states she cannot tolerate her jejunal feeds is not using the recommended 45cc/hr overnight rate. Patient is self-sabotage her treatment. She would refuse dialysis and then become hyperkalemic. She states that she is going to follow-up with palliative care outpatient for pain management. We attempted to contact the palliative ca re team and there is no plan for palliative care. Patient demands IV Dilaudid and IV Benadryl only. Patient is pain seeking and has been doctor shopping. Patient is stating that she has nausea vomiting however able to eat her entire lunch. She is not cooperating. She has been tolerating her tube feeds while here. At time of discharge her labs and vitals are stable, she is stable for discharge home. Status at Discharge Cognitive/behavioral status at discharge: Depressed, baseline Time Spent with Patient Time attestation: Total time spent providing and/or coordinating discharge services: 45 minutes Exam Narrative: - GENERAL: Pleasant woman in No acute d istress, tearful - EYES: EOMI. Anicteric. - HENT: Moist mucous membranes. - LUNGS: Clear to auscultation bilateral ly, no wheezing, rhonchi, or rales. - CARDIOVASCULAR: Regular rate and rhyth m. Left-sided port - ABDOMEN: Soft, non-tender and non-dist ended. No palpable masses. G-tube in place - EXTREMITIES: No edema. Peripheral puls es 2+. Non-tender. - NEUROLOGIC: No focal neurological defi cits. CN II-XII grossly intact. - PSYCHIATRIC: Awake, Alert and oriented x 3. Appropriate mood and affect. - SKIN: No rashes or lesions. Warm. - LYMPH: No cervical lymphadenopathy. DS: Data Data Completed and Pending Labs on day of discharge: Labs from last 24 hours 03/01/25 03/01/25 03/01/25 07:50 05:07 00:12 POC Capillary Glucose 407 H 275 H 295 H 02/28/25 02/28/25 02/28/25 20:17 16:26 12:25 POC Capillary Glucose 329 H 175 H 156 H Discharge Plan Discharge Attending physician on discharge: Willy Mckinley Consulting providers: Grace Collins; Lisa Franks Discharging Clinician: Willy Mckinley Anticipated Discharge Date/Time: 03/01/25 08:48 Patient Disposition: Home Activity: may shower Diet: diabetic Discharge Instructions: Please follow-up with your providers at [facility] for further management of your gastroparesis and tube feeds. Patient Instructions: Antibiotic Form Patient Language: Moldovan Stand Alone Forms: General Discharge Information Follow-up/Referrals: Luis Carlos,Edgardo Mak MD [Primary Care Provider, Unknown] Discharge Medications: Continued losartan 25 mg tablet 25 mg PO DAILY insulin lispro 100 unit/mL insulin pen 1 sliding scale dose SUBCUT PRN insulin glargine [Lantus Solostar U-100 Insulin] 100 unit/mL (3 mL) insulin pen 25 unit SUBCUT .AM Qty: 3 0RF ondansetron 4 mg tablet,disintegrating 4 mg PO Q6H Qty: 60 0RF carvedilol 12.5 mg tablet 12.5 mg PO Q12H amlodipine 10 mg tablet 10 mg PO DAILY escitalopram oxalate 10 mg tablet 10 mg PO DAILY gabapentin 100 mg capsule 100 mg PO TID Gvoke HypoPen 2-Pack 0.5 mg/0.1 mL auto-injector 0.5 mg SUBCUT PRN PRN (Reason: hypoglycemia) metoprolol succinate 200 mg tablet extended release 24 hr 200 mg PO DAILY isosorbide mononitrate 30 mg Tablet Extended Release 24 Hr 30 mg PO QAM 30 Days Qty: 30 1RF pantoprazole 40 mg Tablet,Delayed Release (Dr/Ec) 40 mg PO QAM 30 Days Qty: 30 0RF Date of admission: 02/23/25 10:48 Primary Care Provider: Luis CarlosEdgardo Admitting Provider: Jaciel Haley Attending physician on admission: Jaciel Haley Condition: Stable Hospitalist MIPS Heart Failure (Exclusion) Patient has history of Heart Transplant or Left Ventricular Assistive Device?: No IF YES, STOP HERE Heart Failure (Qualifier) Patient has current or prior documentation of LVEF less than or equal to 40%, or mod/servere depressed LVSF?: No IF NO, STOP HERE
[2025-03-01] MEDS: INSULIN ASPART (*BKC) 100 UNITS/ML 10 UNITS SUB-Q (12:54)
--- NOTE | 2025-03-01 18:19 | PC.NURSE ---
Pt at first agreeable to dialysis approx 0745, but then refusing dialysis this AM approx 0755, as she can't tolerate it two days in a row. Kanungo states she can refuse if she wants. cleaners made aware. Provider made aware. Provider to bedside discussing discharge approx 0800. Pt states she is unstable and not willing to go home at this time. Pt states she will appeal discharge. Rn to bedside to assess and morning med. POC glucose 407 this AM. Called provider who declined additional coverage. 5u novolog and 5u lantus given. Reviewed pt allergies and noticed that pt's charted allergies in fact include said hydromorphone and diphenhydramine. Pt states that she can only tolerate her nausea and pain with IVP benadryl and dilaudid Q4hr. Pt voiced concern over being discharged before she is stable. Pt states provider told her that only her dilaudid would be discontinued and that she wants her benadryl at 1030 when she can have it again. Approx 0925, care coordination and this RN to pt bedside to review appeal process. economic development coordinator discussing that pt can appeal discharge decision but not medical course of actions such as pain medications or dialysis. Pt states she will call in. Orders received to d/c dilaudid, diphenhydramine and zolpidem. Pt made aware and frustrated as that is not what she believes the MD to have stated. This RN stated she would reach back out to provider to request diphenhydramine as it is the only medication the pt states that will work on her nausea. Provider unwillling to order at this time. Pt voiced, He'll be sorry when I start vomiting. Approx 1130, RN called to room as pt states severe nausea. Pt offered zofran; pt states this doesn't work at all. Pt lunch POC glucose reading 418. Provider contacted. Order received for a one time total dose of 10 units instead of the 5u slide. Pt agreeable to novolog but refusing flush and gabapentin. Pt resting comfortably throughout afternoon, voicing extreme nausea at one time. Asked pt if she would like the IVP zofran or PO benadryl, if provider was willing. Pt declined both stating that neither would help. Pt refusing gabapentin again. Asked pt if there was anything else I could do, and she declined. Call made to provider again informing him of pt extreme nausea. No new orders at this time. Returned to tell pt, but she was resting in bed quietly.
--- NOTE | 2025-03-01 19:58 | PC.NURSE ---
Patient refused to restart Nepro stating shes too nauseas. I verified with second nurse, Bhupinder Valero at shift change during bedside rounding
--- NOTE | 2025-03-01 22:32 | PC.NURSE ---
Patient refused evening 2100 Metoprolol due to nausea. Pt states she in unable to tolerate PO or G tube at this time. Patient educated on importance of medication compliance. She also reports she is too nauseas to move so assessment was limited.
[2025-03-02] VITALS (10 sets, daily range): BP systolic 152–184; BP diastolic 76–94; PULSE 79–89; RESP 16–20; TEMP 36.1–36.9; O2SAT 96–100
[2025-03-02] MEDS: METOPROLOL TARTRATE 50 MG TAB 100 MG FEED TUBE ×2 (09:30→20:39)
[2025-03-02] MEDS: PANTOPRAZOLE 40 MG TABLET PO (09:31)
[2025-03-02] MEDS: GABAPENTIN 100 MG CAPSULE FEED TUBE ×3 (09:31→17:37)
[2025-03-02] MEDS: ESCITALOPRAM OXALATE 10 MG TABLET FEED TUBE (09:31)
[2025-03-02] MEDS: INSULIN GLARGINE (*BKC) 100 UNITS/ML SUB-Q ×2 (09:33→20:31)
[2025-03-02] MEDS: INSULIN ASPART (*BKC) 100 UNITS/ML SUB-Q ×5 (12:49→22:44)
--- NOTE | 2025-03-02 12:57 | PCNFU ---
Nutrition Follow-Up Complete: Suboptimal Energy Intake as related to Intractable Nausea/Vomiting as evidenced by J tube feedings intolerance and poor po intake reported. Meet estimated nutritional needs. - Not meeting goals. Continue goals Goal: Pt current nutrition is Regular diet. Nepro @ 45 ml/h at night - held. Pt refusing Nutrition recommendation: No new recommendations. Pt continues to refuse care. Last recorded weight is 67.3 kg. Bowel Motility: Last BM 02/24 in the setting of known severe gastroparesis Labs Reviewed: No new labs Meds Noted: Protonix, lantus, novolog Skin: No skin issues Additional Notes: Pt continues to refuse meals and tube feedings. Complaining of nausea. Psych consult placed. Continue to monitor Will monitor weight, labs, skin, diet orders, meds, tube feeding tolerance every Wednesday and Wednesday.
--- NOTE | 2025-03-02 13:02 | PM.IMPN ---
Progress Note: A&P Assessment and Plan (1) Depression: Code(s): F32.9 - Major depressive disorder, single episode, unspecified Status: Acute (2) S/P percutaneous endoscopic gastrostomy (PEG) tube placement: Code(s): Z93.1 - Gastrostomy status Status: Acute (3) Nausea & vomiting: Code(s): R11.2 - Nausea with vomiting, unspecified Status: Acute (4) Malingering: Code(s): Z76.5 - Malingerer [conscious simulation] Status: Acute Plan Gastroparesis Intractable nausea -patient had GJ tube placed (01/2025) due to her gastroparesis and stating she is not tolerating medical management -she cannot tolerate Reglan, any prokinetic. She has been following at [facility] -antiemetic: Zofran -she tolerated tube feeds at 20 cc/hr, goal rate is supposed to be 45cc/hr, patient refused tube feeds -dietitian consulted -the patient is tolerating p.o. intake -pain control tylenol -will not give any dilaudid or benadryl, nothing appears to be helping the nausea, these medications are sedating without treating underlying issue Malingering Munchausen syndrome -patient states she is nauseous however not vomiting -she has refused dialysis 2 days in a row, she is not eating, and not accepting tube feeds -consulting Psychiatry Chronic conditions -brittle type 1 diabetic: Hypoglycemia protocol, Lantus 5 units b.i.d., sliding scale insulin, Accu-Cheks a.c. HS -chronically elevated LFTs: GI consult believes it may be related to hepatic steatosis not seen on imaging, recommendation for outpatient follow-up with GI at [facility] -essential hypertension: Amlodipine, stop Imdur, losartan, metoprolol ER to tartrate 100mg BID, will discontinue Coreg to prevent double therapy with beta annalisa -depression: Nesha Pandya for insomnia -for diabetic neuropathy: Gabapentin -ESRD on HD TTS: nephrology consulted for dialysis -malingering: I had an extensive conversation with patient for 30 minutes. Patient explaining her history of type 1 diabetes and having issues with nausea/gastroparesis for the last 5 years. Her symptoms are bad enough that she was pursuing hospice at [facility] but her mother talked her out of it. She is now pursuing palliative care for a pain pump. We called to see about palliative care and patient is not a patient of theirs, there is no plan for a pain pump. Patient is demanding IV Dilaudid and Benadryl. I believe she has severe depression leading to self-harm. She states she is nauseous and unable to tolerate the post pyloric tube feed. Despite being nauseous she has eaten her entire lunch. She follows at [facility]. they considered gastrectomy, before but now are trailing the post-pyloric feeding tubes. she failed to follow up with them when having issues with the tube feeds. Diet: Tube feeds, regular diet DVT prophylaxis: Ambulatory, SCDs Code status: Full code Disposition: Discharged 03/01, pending discharge appeal Time Spent With Patient Time: 45 minutes Subjective Date/time seen: 03/02/25 13:02 Interval history: Patient seen examined. She continues to complain of nausea. She refusing dialysis 2 days in a row. Patient is noncooperative, refusing therapies, used to eat, refusing tube feeds. Consulting Psychiatry to help assist. Patient is appealing discharge. Review of Systems Review of Systems: 10 point ROS complete, negative other than what is specified in HPI. Exam Narrative: - GENERAL: woman in no acute distress, tearful - EYES: EOMI. - HENT: Moist mucous membranes. - LUNGS: Clear to auscultation bilaterally, no wheezing - CARDIOVASCULAR: Regular rate and rhythm. Left-sided port - ABDOMEN: Soft, non-tender and non-distended. No palpable masses. G-tube in place - EXTREMITIES: No edema. Peripheral pulses 2+. - NEUROLOGIC: No focal neurological deficits. CN II-XII grossly intact. - PSYCHIATRIC: Awake, Alert and oriented x 3. Poor insight, anxious Objective Data Vital Signs Vital Signs: Vital Signs - 24 hr 03/01/25 16:00 03/01/25 16:00 03/01/25 19:54 Temperature 36.1 C L 36.1 C L Pulse Rate 79 79 79 Respiratory Rate 18 18 Blood Pressure 163/93 H 159/94 H Pulse Oximetry 98 98 Oxygen Delivery 03/01/25 20:15 03/01/25 22:00 03/01/25 22:03 Temperature Pulse Rate 80 78 Respiratory Rate Blood Pressure Pulse Oximetry 98 Oxygen Delivery Room Air 03/01/25 23:47 03/02/25 00:00 03/02/25 03:39 Temperature 36.4 C 36.1 C L Pulse Rate 80 79 82 Respiratory Rate 18 18 Blood Pressure 182/92 H 184/94 H Pulse Oximetry 98 99 Oxygen Delivery 03/02/25 04:00 03/02/25 09:30 Temperature Pulse Rate 82 89 Respiratory Rate Blood Pressure Pulse Oximetry Oxygen Delivery Intake/Output Intake/Output: Intake & Output 02/27/25 02/28/25 03/01/25 03/02/25 23:59 23:59 23:59 23:59 Intake Total 1630 1330 1084 240 Output Total 1000 3200 50 Balance 630 -1870 1034 240 Meds/Results Medications: Active Medications Generic Name Dose Route Start Last Admin Trade Name Freq PRN Reason Stop Dose Admin Acetaminophen 650 mg 02/28/25 14:46 Acetaminophen Elixir 325 Mg/10.15 Ml Udc FEED TUBE Q4H PRN Mild Pain (1-3) or Fever Amlodipine Besylate 7.5 mg 03/01/25 09:00 03/02/25 09:30 Amlodipine Besylate 2.5 Mg Tablet FEED TUBE 7.5 mg DAILY JAYME Administration Dextrose 12.5 gm 02/22/25 18:57 02/25/25 03:45 Dextrose 50% 25 Gm/50 Ml Syringe IV PUSH 12.5 gm PRN PRN Administration Hypoglycemia Protocol Escitalopram Oxalate 10 mg 03/01/25 09:00 03/02/25 09:31 Escitalopram Oxalate 10 Mg Tablet FEED TUBE 10 mg DAILY JAYME Administration Gabapentin 100 mg 02/28/25 17:00 03/02/25 12:49 Gabapentin 100 Mg Capsule FEED TUBE 100 mg TID JAYME Administration Glucagon 1 mg 02/22/25 18:57 Glucagon For Inj 1 Mg Vial IM PRN PRN Hypoglycemia Protocol Glucose 15 gm 02/22/25 18:57 Glucose Oral Gel 15 Gm Of Glucse In 37.5 Gm Tube PO PRN PRN Hypoglycemia Protocol Heparin Sodium (Beef Lung) 50 units 02/23/25 09:00 03/02/25 09:32 Heparin Flush 50 Units/5 Ml Syringe IV PUSH 50 units QAM JAYME Administration Heparin Sodium (Beef Lung) 50 units 02/22/25 10:10 Heparin Flush 50 Units/5 Ml Syringe IV PUSH PRN PRN after intermittent infusion Heparin Sodium (Beef Lung) 50 units 02/22/25 10:10 Heparin Flush 50 Units/5 Ml Syringe IV PUSH PRN PRN after blood draws Heparin Sodium (Porcine) 500 units 02/22/25 10:10 Heparin Sodium Lock Flush 500 Units/5 Ml Syringe IV PUSH PRN PRN see comments below Dextrose 1,000 mls @ 100 mls/hr 02/22/25 18:57 Dextrose 5% 1,000 Ml IVPB PRN PRN Hypoglycemia Protocol Albumin Human 50 mls @ 999 mls/hr 02/24/25 05:54 Albutein IVPB Q10M PRN HYPOTENSION Insulin Aspart 2 - 5 units 02/23/25 08:00 03/02/25 12:49 Insulin Aspart (*Bkc) 100 Units/Ml SUB-Q 4 units TIDWM JAYME Administration Protocol Insulin Aspart 1 - 2 units 02/22/25 21:00 03/01/25 20:36 Insulin Aspart (*Bkc) 100 Units/Ml SUB-Q Not Given HS JAYME Protocol Insulin Glargine 5 units 02/27/25 21:00 03/02/25 09:33 Insulin Glargine (*Bkc) 100 Units/Ml SUB-Q 5 units Q12H JAYME Administration Losartan Potassium 50 mg 03/01/25 09:00 Losartan Potassium 50 Mg Tablet FEED TUBE On Hold: 03/01/25 09:00 DAILY JAYME Metoprolol Tartrate 100 mg 02/28/25 21:00 03/02/25 09:30 Metoprolol Tartrate 50 Mg Tab FEED TUBE 100 mg Q12HR JAYME Administration Ondansetron HCl 4 mg 02/22/25 16:24 Ondansetron Inj 4 Mg/2 Ml Vial IV PUSH Q4H PRN Nausea Pantoprazole Sodium 40 mg 02/23/25 09:00 03/02/25 09:31 Pantoprazole 40 Mg Tablet PO 40 mg QAM JAYME Administration Sodium Chloride 10 ml 02/22/25 14:00 03/02/25 06:34 Central Line Flush IV PUSH Not Given Q8HR [facility] Radiology Results: ITS Impressions Chest X-Ray 02/22/25 13:31 IMPRESSION: 1. No acute cardiopulmonary findings given portable technique. Abdomen/Pelvis CT 02/22/25 13:41 IMPRESSION: 1. Mild wall thickening in the small and large bowel as well as the distal esophagus could be associated with third spacing; early or mild inflammatory or infectious changes may have a similar appearance. Correlate clinically. 2. The urinary bladder is mildly distended. No acute surgical abnormality identified. 3. Slightly improved aeration in the left lung base. Labs Labs: Laboratory Results - last 24 hr 03/01/25 03/01/25 03/01/25 16:04 19:58 22:41 POC Capillary Glucose 189 H 83 127 H 03/01/25 03/02/25 03/02/25 23:43 03:43 08:02 POC Capillary Glucose 132 H 171 H 255 H 03/02/25 11:50 POC Capillary Glucose 346 H
[2025-03-02] MEDS: CENTRAL LINE FLUSH 10 ML IV PUSH ×2 (14:36→20:39)
[2025-03-02] MEDS: ONDANSETRON INJ 4 MG/2 ML VIAL IV PUSH (18:29)
--- NOTE | 2025-03-02 20:15 | PC.NURSE ---
Spoke with Celia Daniels by phone regarding pt BS [phone]. See MAR for orders
--- NOTE | 2025-03-02 22:36 | PC.NURSE ---
Automatic [employer]ring Machine Operator reached out to Celia Walden NP with repeat BS of [phone]. See MAR for additional dosage. Repeat Accu check in 2 hrs
--- NOTE | 2025-03-02 23:22 | PC.NURSE ---
Per Celia Daniels by phone, ok to DC tele as patient is discharging in the AM
[2025-03-03] VITALS: PULSE 47
--- NOTE | 2025-03-03 01:21 | PC.NURSE ---
Tele restarted pending AM labs per Celia Daniels
--- NOTE | 2025-03-03 01:27 | PC.NURSE ---
Pt BS reported to Dr Calderon at 0120. No new orders at this time.
[2025-03-03 04:00] VITALS: PULSE 73
[2025-03-03 05:20] VITALS: BP 175/90; PULSE 74; RESP 14; TEMP 36.6; O2SAT 98
--- NOTE | 2025-03-03 05:28 | PC.NURSE ---
screen writer went to draw morning labs and patient voiced frustration stating why is this even being done if Im discharging Patient wants to wait until later this morning once she knows if she is in fact discharging.
--- NOTE | 2025-03-03 09:36 | WPDCNPSYCH ---
Assessment and Plan Assessment and plan (1) Malingering: Code(s): Z76.5 - Malingerer [conscious simulation] Status: Acute (2) Depression: Code(s): F32.9 - Major depressive disorder, single episode, unspecified Status: Acute Plan Patient is calm and cooperative during interview; however along with chart review and nursing reports, appears to have inconsistencies. She adamantly denies suicidal ideation or intent to self harm, although refusal of care could lead to deteriorating health, however does express motivation to want to feel better. Patient does appear to assume the sick role without notable external incentives (such as financial gain, avoiding employment or school engagements), therefore Munchausen cannot be exclusively ruled out as an underlying factor. Discussed plan of care in depth with patient. She has sought counseling in the past, although does not have a current counselor. Recommend she follow up outpatient with a counselor for outpatient therapy support. She is currently prescribed escitalopram for depression per her PCP, recommend she continue this and she declines medication adjustment. Patient is not an imminent risk of harm to herself warranting involuntary inpatient behavioral health admission. Although, ongoing resistance to aspects of care are likely to deteriorate her chronic health conditions. Psychiatry will follow along as needed, please do not hesitate to contact with further concerns regarding this patient. HPI Data of Consult Date/Time: 03/03/25 09:36 Requesting Physician: Jaciel Haley MD Primary Care Provider: Edgardo Aldridge, Consult Narrative Narrative: Lynette Bellamy is a 29 year old female with a complex medical history of DM 1, HTN, gastroparesis s/p Enterra device and G/J tube, ESRD on HD admitted on 02/22 for reported nausea and vomiting related to her ongoing gastroparesis. Psychiatry has been consulted for refusal of care, concern for secondary gain and self harm. Upon interview this morning, she is A/O x 4, calm and cooperative. She reports she has been dealing with chronic medical concerns for much of her life, which have recently worsened in the context of G/J tube placement last month. She developed worsening nausea and vomiting so was brought herself to the hospital for IV diphenhydramine, which she reports has helped her symptoms in the past. Since admission, she has reportedly been refusing aspects of care including labs, advancing tube feedings to goal rate, dialysis treatments. During interview, patient expresses feeling misunderstood. She does express the desire to improve her current condition, however at times will avoid certain aspects of discussion regarding next treatment goals and appears to focus on her perspective of what should be done to manage her symptoms, regardless of provider recommendations. She adamantly denies the desire to end her life or current behaviors being suicidal in nature. She does report a history of depression related to her current circumstances, which her primary care provider prescribes her escitalopram 10mg for. Patient reports this has been helpful at managing her mood, which she denies is a current concern. She has seen a counselor in the past for therapy, most recently about 2-3 years ago. She lives at home with her mother, who she reports is a good support in addition to her grandmother whom she feels comfortable talking about her feelings and concerns to when needed. Review of Systems Psychiatric: Psychiatric: Reports as per [facility] Past Medical History Medical History (Updated 03/01/25 @ 08:51 by Willy Mckinley DO) Munchausen's syndrome Malingering Anemia in chronic kidney disease Diabetic gastroparesis Port-A-Cath in place Type 1 diabetes Diagnosed at age 7 Depression Surgical History Surgical History (Updated 02/26/25 @ 10:44 by Nusrat Prasad APRN) S/P dialysis catheter insertion (~2022) Status post insertion of percutaneous endoscopic gastrostomy (PEG) tube For gastric drainage Status post jejunostomy (12/2024) For feeds History of cholecystectomy Family History Family History Other Family history of cardiovascular disease Social History Social History Social History: She is not and does not have any children. She lives with her mother and is on disability. She is a lifelong nonsmoker and does not drink alcohol or use illicit substances. Code status: Full code Surrogate decision maker: Mother Smoking status: Never smoker Alcohol intake: never Substance use: never Substance use type: does not use Lack of Transportation: No Lack of Food: Never True Current Housing: I Have Housing Concerned About Future Housing: No Difficulty Paying Gas/Electric Bills: No Difficulty Paying for Meds: No Currently Unemployed: YES Education: High School Diploma/GED Difficulty w/ Childcare or Family Care: No Gender identity (if verbalized by the patient): Female Spiritual care concerns: No Meds Home Medications and Allergies Home Medications ?Medication ?Instructions ?Recorded ?Confirmed ?Type insulin lispro 100 unit/mL 1 sliding scale dose subcut PRN 06/02/22 02/22/25 History subcutaneous pen losartan 25 mg tablet 25 mg PO DAILY 06/02/22 02/22/25 History amlodipine 10 mg tablet 10 mg PO DAILY 01/01/25 02/22/25 History carvedilol 12.5 mg tablet 12.5 mg PO Q12H 01/01/25 02/22/25 History escitalopram oxalate 10 mg tablet 10 mg PO DAILY 01/01/25 02/22/25 History gabapentin 100 mg capsule 100 mg PO TID 01/01/25 02/22/25 History glucagon 0.5 mg/0.1 mL 0.5 mg subcut PRN PRN hypoglycemia 01/01/25 02/22/25 History subcutaneous auto-injector (Gvoke HypoPen 2-Pack) metoprolol succinate 200 mg 200 mg PO DAILY 01/01/25 02/22/25 History tablet,extended release 24 hr isosorbide mononitrate 30 mg 30 mg PO QAM 30 days #30 tabs 01/05/25 02/22/25 Rx tablet,extended release 24 hr pantoprazole 40 mg tablet,delayed 40 mg PO QAM 30 days #30 tabs 01/05/25 02/22/25 Rx release insulin glargine 100 unit/mL (3 25 unit (0.25 mL) subcut .AM #3 mL 02/16/25 02/22/25 Rx mL) subcutaneous pen (Lantus Solostar U-100 Insulin) ondansetron 4 mg disintegrating 4 mg PO Q6H #60 tabs 02/17/25 02/22/25 Rx tablet Allergies Allergy/AdvReac Type Severity Reaction Status Date / Time metoclopramide (From Reglan) Allergy Intermediate Muscle Verified 02/22/25 18:28 Spasms trimethobenzamide (From Allergy Intermediate hives Verified 02/22/25 18:28 Tigan) hydralazine Allergy Hives Verified 02/22/25 18:28 diphenhydramine (From AdvReac Severe Nausea and Verified 03/01/25 08:47 Benadryl) Vomiting hydromorphone (From Dilaudid) AdvReac Severe Nausea and Verified 03/01/25 08:47 Vomiting Vital Signs Vital Signs - 24 hr 03/02/25 12:00 03/02/25 16:00 03/02/25 16:00 Temperature 98.1 F Pulse Rate 84 85 85 Respiratory Rate 20 Blood Pressure 174/91 H Pulse Oximetry 100 Oxygen Delivery 03/02/25 20:00 03/02/25 20:15 03/02/25 20:36 Temperature 98.4 F Pulse Rate 84 81 Respiratory Rate 16 Blood Pressure 152/76 H Pulse Oximetry 96 96 Oxygen Delivery Room Air 03/02/25 20:39 03/03/25 00:00 03/03/25 04:00 Temperature Pulse Rate 81 47 L 73 Respiratory Rate Blood Pressure Pulse Oximetry Oxygen Delivery 03/03/25 05:20 Temperature 97.8 F Pulse Rate 74 Respiratory Rate 14 Blood Pressure 175/90 H Pulse Oximetry 98 Oxygen Delivery Exam Psych: Appearance: grossly normal Mental Status: mental status grossly normal Speech and movement: Normal speech and movement present Affect: normal affect Attitude: cooperative Thought process: Normal thought process present Thought content: Yes Normal thought content present Results Labs 02/28/25 05:07 02/28/25 05:53
[2025-03-03 09:55] VITALS: PULSE 84
[2025-03-03] MEDS: ESCITALOPRAM OXALATE 10 MG TABLET FEED TUBE (09:55)
[2025-03-03] MEDS: METOPROLOL TARTRATE 50 MG TAB 100 MG FEED TUBE (09:55)
[2025-03-03] MEDS: GABAPENTIN 100 MG CAPSULE FEED TUBE (09:57)
[2025-03-03] MEDS: PANTOPRAZOLE 40 MG TABLET PO (09:57)
[2025-03-03] MEDS: INSULIN ASPART (*BKC) 100 UNITS/ML SUB-Q (09:58)
[2025-03-03] MEDS: INSULIN GLARGINE (*BKC) 100 UNITS/ML SUB-Q (09:59)
== END 2025-03-03 10:35 | disposition home or self-care (01) | DRG 637 ==
LOC: ANHED 16:24 → ANH3MED 17:23
PROVIDERS: Internal Medicine Nephrology; Nurse Practitioner Acute Care; Nurse Practitioner Adult Health; Admitting Provider Family Medicine; Emergency Provider Student in an Organized Health Care Education/Training Program; PCP Family Medicine; Visit Provider Student in an Organized Health Care Education/Training Program
DX: E10.10 Type 1 diabetes mellitus with ketoacidosis without coma (principal); N18.6 End stage renal disease; F68.10 Factitious disorder imposed on self, unspecified; I12.0 Hypertensive chronic kidney disease with stage 5 chronic kidney disease or end stage renal disease; E10.22 Type 1 diabetes mellitus with diabetic chronic kidney disease; E10.43 Type 1 diabetes mellitus with diabetic autonomic (poly)neuropathy; K31.84 Gastroparesis; D63.1 Anemia in chronic kidney disease; R10.84 Generalized abdominal pain; R74.01 Elevation of levels of liver transaminase levels; F32.9 Major depressive disorder, single episode, unspecified; Z20.822 Contact with and (suspected) exposure to COVID-19; Z99.2 Dependence on renal dialysis; Z93.1 Gastrostomy status; Z79.4 Long term (current) use of insulin; Z96.82 Presence of neurostimulator; Z76.5 Malingerer [conscious simulation]
CPT/HCPCS: 36415; 71045; 74177; 80048; 80053; 80069; 81001; 82010; 82948; 83690; 83735; 84100; 84145; 84703; 85025; 85027; 85652; 86140; 87040; 87086; 87636; 87641; 93005; 94640; 96361; 96374; 96375; 96376; 99285; A9270; G0257; G0378; J0612; J1171; J1200; J1630; J1642; J1644; J1815; J2405; J3360; J7030; J7040; Q5105; Q9967

== ENCOUNTER 2025-03-07 16:20 | Observation (INO) | payer MEDICARE, MEDICAID, SELFPAY ==
[2025-03-07] VITALS (12 sets, daily range): BP systolic 160–215; BP diastolic 89–126; PULSE 97–105; RESP 14–24; TEMP 37.2; O2SAT 97–100; BMI 24.9
--- NOTE | ~2025-03-07 | XR_ITS ---
EXAMINATION: XR chest 1V portable DATE: 03/07/2025 16:33 INDICATION: Port catheter check. TECHNIQUE: A single frontal view of the chest was obtained. COMPARISON: Chest x-ray 02/22/2025 FINDINGS: Borderline sized heart. Lungs do not show acute findings. Port catheter is noted entering through the left internal jugular vein with the tip in the superior vena cava. Dialysis catheter is noted in place, entering through the right internal jugular vein, with the tip in the right atrium. Increased vascular markings of lungs vascular congestion. No pleural effusion. IMPRESSION: 1. Mild vascular congestion the lungs. 2. Port catheter and dialysis catheter are present as mentioned above. Reviewed, dictated and finalized at location T. [employer] ACID OPERATOR
--- NOTE | ~2025-03-07 | CT_ITS ---
EXAMINATION: CT brain wo con DATE: 03/07/2025 18:39 INDICATION: Headache. No history of trauma. TECHNIQUE: Computed tomography (CT) of the head was performed without intravenous contrast. The mA was adjusted according to patient size. Iterative reconstruction technique was employed. The dose-length product was 605.33 mGy-cm. COMPARISON: None FINDINGS: No acute intracranial bleed. No evidence of ventriculomegaly or midline shift. No effacement of sulci. No acute bone or sinus abnormalities. Premature atherosclerotic changes of the vertebral arteries at the skull base. IMPRESSION: 1. Limited noncontrast CT head shows no acute intracranial lesions. 2. Premature calcific changes of vertebral arteries at the skull base. Reviewed, dictated and finalized at location T. N TRANSPORTATION INTERMEDIARY
--- NOTE | 2025-03-07 16:22 | ECG_ITS ---
Test Date: 2025-03-07 16:34:04 Measurements Intervals [place] Rate: 103 P: 30 [place]: 143 QRS: -1 QRSD: 86 T: 65 QT: 359 QTc: 470 Interpretive Statements NORMAL SINUS RHYTHM LEFT VENTRICULAR HYPERTROPHY PEAKED T-WAVES ANTEROSEPTAL LEADS, CONSIDER HYPER ACUTE INJURY VERSUS HYPERKALEMIA ARTIFACTS FROM STIMULATOR NOTED ABNORMAL ECG Electronically Signed On 03-07-2025 17:22:20 [employer] by Odilon Gilman M.D.
[2025-03-07 17:16] LABS: Hematocrit 35.9 % (37.0-47.0); Hemoglobin 11.7 g/dL (12.0-15.0); Immature Granulocyte Percent A 0.2 % (0-0.5); Lymphocytes Absolute Auto 1.06 K/mm3 (0.9-3.2); Mean Corpuscular HGB Conc 32.6 g/dl (32-36); Mean Corpuscular Hemoglobin 28.3 pg (26-34); Mean Corpuscular Volume 86.9 fl (80-100); Nucleated Red Blood Cells Absolute Auto 0.000 K/mm3 (0.0-0.012); Nucleated Red Blood Cells Perc 0.0 % (0.0-0.2); Platelet Count Result 205 k/mm3 (150-375); Red Blood Count 4.13 M/mm3 (4.2-5.4); White Blood Count 4.6 K/mm3 (4.5-10.0)
[2025-03-07 17:26] LABS: Alanine Aminotransferase 49 U/L (6-35); Albumin Level 4.1 g/dL (3.5-5.1); Alkaline Phosphatase 214 U/L (38-126); Anion Gap 14 mmol/L (4-12); Aspartate Amino Transferase 27 U/L (14-36); Bilirubin,Total 0.7 mg/dL (0.2-1.3); Blood Urea Nitrogen 34 mg/dL (7-17); Calcium 7.6 mg/dL (8.4-10.2); Carbon Dioxide 20 mmol/L (22-30); Chloride 100 mmol/L (98-107); Estimated CRCL calculation 9 ml/min; Estimated Glomerular Filt Rate 7; Glucose 394 mg/dL (65-110); Lipase 44 U/L (23-300); Potassium 5.5 mmol/L (3.4-5.0); Sodium 134 mmol/L (137-145); Total Protein 7.4 g/dL (6.3-8.2)
[2025-03-07 17:27] LABS: INR 1.1; Prothrombin Time 14.4 Seconds (11.1-14.7)
[2025-03-07 17:28] LABS: Partial Thromboplastin Time 41.3 Seconds (22.3-36.8)
[2025-03-07 17:38] LABS: Troponin I < 0.012 ng/mL (0.000-0.034)
--- NOTE | 2025-03-07 17:55 | ED_ITS ---
HPI - Nausea/Vomiting/Diarrhea General Chief complaint: Recheck/Abnormal Lab/Rx Stated complaint: CHAVEZ HTN Time Seen by Provider: 03/07/25 17:41 History of Present Illness HPI Narrative: Pt has long complex medical history including DM, gastroparesis, g tube, renal failure on dialysis. Pt presents today with htn, abdominal pain, nausea and vomiting and a CHAVEZ. Pt admitted last week for nausea vomiting and renal failure. Pt had psych consult with some concern for Munchausen's but not definitive. Pt dialyzed yesterday. Pt says CHAVEZ and elevated BP are new this week. Related Data Home Medications ?Medication ?Instructions ?Recorded ?Confirmed ?Last Taken ?Type insulin lispro 100 unit/mL 1 sliding scale dose subcut PRN 06/02/22 02/22/25 02/21/25 History subcutaneous pen losartan 25 mg tablet 25 mg PO DAILY 06/02/2210/1102/21/25 History amlodipine 10 mg tablet 10 mg PO DAILY 01/01/2510/1102/21/25 History carvedilol 12.5 mg tablet 12.5 mg PO Q12H 01/01/2510/1102/21/25 History escitalopram oxalate 10 mg tablet 10 mg PO DAILY 01/0102/22/25 02/21/25 History gabapentin 100 mg capsule 100 mg PO TID 01/01/2502/2202/21/25 History glucagon 0.5 mg/0.1 mL 0.5 mg subcut PRN PRN hypogl ycemia 01/01/25 02/22/25 02/21/25 History subcutaneous auto-injector (Gvoke HypoPen 2-Pack) metoprolol succinate 200 mg 200 mg PO DAILY 01/01/25 1 04/24/24 02/21/25 History tablet,extended release 24 hr Allergies Allergy/AdvReac Type Severity Reaction Status Date / Time metoclopramide (From Reglan) Allergy Intermediate Muscle Verified 03/07/25 18:18 Spasms trimethobenzamide (From Allergy Intermediate hives Verified 03/07/25 18:18 Tigan) hydralazine Allergy Hives Verified 03/07/25 18:18 diphenhydramine (From AdvReac Severe Nausea and Verified 03/07/25 18:18 Benadryl) Vomiting hydromorphone (From Dilaudid) AdvReac Severe Nausea and Verified 03/07/25 18:18 Vomiting Review of Systems 2 Review of Systems: All systems reviewed & are unremarkable except as noted in HPI and below PMFSH Past Medical History Medical History (Updated 03/07/25 @ 19:37 by Melania Truong III, DO) Munchausen's syndrome Malingering Anemia in chronic kidney disease Diabetic gastroparesis Port-A-Cath in place Type 1 diabetes Diagnosed at age 7 Depression Surgical History Surgical History (Updated 02/26/25 @ 10:44 by Nusrat Prasad APRN) S/P dialysis catheter insertion (~2022) Status post insertion of percutaneous endoscopic gastrostomy (PEG) tube For gastric drainage Status post jejunostomy (12/2024) For feeds History of cholecystectomy Family History Family History Other Family history of cardiovascular disease Social History Social History Social History: She is not and does not have any children. She lives with her mother and is on disability. She is a lifelong nonsmoker and does not drink alcohol or use illicit substances. Code status: Full code Surrogate decision maker: Mother Smoking status: Never smoker Alcohol intake: never Substance use: never Substance use type: does not use Lack of Transportation: No Lack of Food: Never True Current Housing: I Have Housing Concerned About Future Housing: No Difficulty Paying Gas/Electric Bills: No Difficulty Paying for Meds: No Currently Unemployed: YES Education: High School Diploma/GED Difficulty w/ Childcare or Family Care: No Gender identity (if verbalized by the patient): Female Spiritual care concerns: No Exam 2 Const: General: healthy appearing and no acute distress Nutritional Appearance: well nourished Orientation/consciousness: patient oriented x3 Limitations: no limitations HENMT: Head: normal to inspection Eyes: Pupils: Equal, round and reactive pupils present EOM: EOMs intact bilaterally Neck: Neck: normal visual inspection Chest: Chest palpation & inspection: normal inspection of the chest Other: port in place Resp: Effort & Inspection: normal respiratory effort Auscultation: clear to auscultation bilaterally Cardio: Rate: regular rate Rhythm: regular rhythm GI: GI Palp: Yes Soft to palpation and Yes Tenderness to palpation present (GI) (epigastric) Auscultation: normal bowel sounds Skin: General skin exam: normal color Rashes: no rashes Wounds: no wounds Neuro: General: patient oriented x3, moves all extremities, no meningeal signs, no focal motor deficits and CN's II-XI intact bilaterally Speech: n ormal speech Extrem: General: normal to inspection and no clubbing, cyanosis or edema Psych: Mental Status: mental status grossly normal Affect: normal affect Attitude: cooperative Course Vital Signs Vital signs: Vital Signs Pulse Rate 105 H 03/07/25 16:20 Respiratory Rate 19 03/07/25 16:20 Blood Pressure 215/126 H 03/07/25 16:20 Pulse Oximetry 100 03/07/25 16:20 Oxygen Delivery Room Air 03/07/25 16:20 Pulse Rate 105 H 03/07/25 16:20 Respiratory Rate 19 03/07/25 16:20 Blood Pressure 215/126 H 03/07/25 16:20 Pulse Oximetry 100 03/07/25 16:20 Oxygen Delivery Room Air 03/07/25 16:20 MDM - Nausea/Vomiting/Diarrhea MDM Narrative Medical decision making narrative: will check ekg and labs and get CT brain and treat pain and nausea. BP improved. Pt still complaining of CHAVEZ. will give another dose of dialudid. treated K. discussed with Yumi Lucas and agrees toa admit. Differential Diagnosis Differential diagnosis: Likely dehydration and other (renal failure, gastroparesis, hyperkalemia, SAH, hypertensive urgency among others.) Lab Data 03/07/25 17:09 03/07/25 17:09 Labs: Lab Results 03/07/25 03/07/25 Range/Units 17:09 18:47 WBC 4.6 (4.5-10.0) K/mm3 RBC 4.13 L (4.2-5.4) M/mm3 Hgb 11.7 L (12.0-15.0) g/dL Hct 35.9 L (37.0-47.0) % MCV 86.9 (80-100) fl MCH 28.3 (26-34) pg MCHC 32.6 (32-36) g/dl RDW 14.5 (11.5-14.5) % Plt Count 205 (150-375) k/mm3 MPV 10.4 (7.4-10.4) fl Immature Gran % (Auto) 0.2 (0-0.5) % Neut % (Auto) 64.2 (45.5-73.1) % Lymph % (Auto) 22.9 (18.3-44.2) % Mcnairy % (Auto) 9.5 H (2.6-8.5) % Eos % (Auto) 3.0 (0-4.4) % Baso % (Auto) 0.2 (0.2-1.2) % Lymph # (Auto) 1.06 (0.9-3.2) K/mm3 [place] # (Auto) 0.4 (0.1-0.6) K/mm3 Eos # (Auto) 0.1 (0-0.3) K/mm3 Baso # (Auto) 0.0 (0.0-0.1) K/mm3 Abs Immat Gran (auto) 0.01 (0.00-0.031) K/mm3 Absolute Neuts (auto) 3.0 (1.3-6.7) K/mm3 Absolute Nucleated RBC 0.000 (0.0-0.012) K/mm3 Nucleated RBC % 0.0 (0.0-0.2) % PT 14.4 (11.1-14.7) Seconds INR 1.1 APTT 41.3 H (22.3-36.8) Seconds Sodium 134 L (137-145) mmol/L Potassium 5.5 H (3.4-5.0) mmol/L Chloride 100 (98-107) mmol/L Carbon Dioxide 20 L (22-30) mmol/L Anion Gap 14 H (4-12) mmol/L BUN 34 H D (7-17) mg/dL Creatinine 7.35 H (0.7-1.0) mg/dL Estim Creat Clear Calc 9 ml/min Estimated GFR 7 L (59 - ) Glucose 394 H (65-110) mg/dL POC Capillary Glucose 380 H (65-105) mg/dl Calcium 7.6 L (8.4-10.2) mg/dL Total Bilirubin 0.7 (0.2-1.3) mg/dL AST 27 (14-36) U/L ALT 49 H (6-35) U/L Alkaline Phosphatase 214 H (38-126) U/L Troponin I < 0.012 (0.000-0.034) ng/mL Total Protein 7.4 (6.3-8.2) g/dL Albumin 4.1 (3.5-5.1) g/dL Lipase 44 (23-300) U/L ECG Data EKG #1: Interpretation: pacer t waves peaked more peaked in v2 than prior rate 103. Critical Care Time Critical Care Time Critical Care Time: Yes Total Critical Care Time: 36 Discharge Plan Discharge Clinical Impression: End stage renal disease on dialysis, Acute hyperkalemia, Hypertensive urgency, Acute hyperglycemia Patient Disposition: Still a Patient Condition: Improved Patient Language: Luxembourger Prescriptions: No Action losartan 25 mg tablet 25 mg PO DAILY insulin lispro 100 unit/mL insulin pen 1 sliding scale dose SUBCUT PRN insulin glargine [Lantus Solostar U-100 Insulin] 100 unit/mL (3 mL) insulin pen 25 unit SUBCUT .AM Qty: 3 0RF ondansetron 4 mg tablet,disintegrating 4 mg PO Q6H Qty: 60 0RF carvedilol 12.5 mg tablet 12.5 mg PO Q12H amlodipine 10 mg tablet 10 mg PO DAILY escitalopram oxalate 10 mg tablet 10 mg PO DAILY gabapentin 100 mg capsule 100 mg PO TID Gvoke HypoPen 2-Pack 0.5 mg/0.1 mL auto-injector 0.5 mg SUBCUT PRN PRN (Reason: hypoglycemia) metoprolol succinate 200 mg tablet extended release 24 hr 200 mg PO DAILY isosorbide mononitrate 30 mg Tablet Extended Release 24 Hr 30 mg PO QAM 30 Days Qty: 30 1RF pantoprazole 40 mg Tablet,Delayed Release (Dr/Ec) 40 mg PO QAM 30 Days Qty: 30 0RF Follow-up/Referrals: Luis Carlos,Edgardo Mak MD [Primary Care Provider, Unknown]
[2025-03-07] MEDS: HYDROmorphone HCL INJ (*CRX) 1 MG/ML SYR IV PUSH ×2 (18:11→19:38)
[2025-03-07] MEDS: ONDANSETRON INJ 4 MG/2 ML VIAL IV PUSH (18:11)
[2025-03-07] MEDS: CALCIUM GLUC 1,000 MG/NS 50 ML 1,000 MG/50 ML BAG 100 MG IVPB (18:26)
[2025-03-07] MEDS: DEXTROSE 50% 25 GM/50 ML SYRINGE IV PUSH (18:47)
[2025-03-07] MEDS: SODIUM BICARBONATE 8.4% 50 MEQ/50 ML SYRINGE IV PUSH (18:47)
[2025-03-07] MEDS: INSULIN HUMAN REGULAR (*BKC) 100 UNITS/ML 6 UNITS IV PUSH (18:48)
[2025-03-07] MEDS: SODIUM CHLORIDE 0.9% IV 1,000 ML 999 ML IV CONT (19:55)
--- NOTE | 2025-03-07 20:19 | WPCEDHO ---
ED Hand Off Checklist All vitals saved:yes IV Site documented:yes All med administrations documented:yes Triage Note Triage Note Pt to ED from home with complaint 03/07/25 16:20 of N/V/D x3 days. Pt has not been able to keep anything down but has been doing meds through her gtube. Does dialysis T,TH,S. Allergies metoclopramide (From Reglan) Allergy (Intermediate, Verified 03/07/25 18:18) Muscle Spasms trimethobenzamide (From Tigan) Allergy (Intermediate, Verified 03/07/25 18:18) hives hydralazine Allergy (Verified 03/07/25 18:18) Hives diphenhydramine (From Benadryl) Adverse Reaction (Severe, Verified 03/07/25 18:18) Nausea and Vomiting hydromorphone (From Dilaudid) Adverse Reaction (Severe, Verified 03/07/25 18:18) Nausea and Vomiting Family History (Last Reviewed 01/30/25 @ 11:19 by Dwight Gonzalez MD) Other Family history of cardiovascular disease Active Medications including assessments/comments Sodium Chloride (Normal Saline Iv) 1,000 mls @ 999 mls/hr IV CONT .Q1H1M STA Stop: 03/07/25 20:31 Last Admin: 03/07/25 19:55 Dose: 999 mls/hr Documented By: ANGEL Infusion/Titration Document 03/07/25 19:55 ANGEL (Rec: 03/07/25 19:55 ANGEL [id number]) Intake IV Site Port-a-Cath Left Chest Container Volume 1,000 Waste Amount 0 Dosing Infusion Rate 999 Cumulative Dose Not Applicable Increase/Decrease Started Elapsed Time Elapsed Time ( 0m minutes) Administered/Completed Medications Discontinued Medications Dextrose (Dextrose 50% 25 Gm/50 Ml Syringe) 25 gm IV PUSH ONCE ONE Stop: 03/07/25 17:50 Last Admin: 03/07/25 18:47 Dose: 25 gm Documented By: ANGEL Diphenhydramine HCl (Diphenhydramine Hcl Inj 50 Mg/Ml Vial) 50 mg IV PUSH ONCE STA Stop: 03/07/25 18:19 Last Admin: 03/07/25 18:26 Dose: 50 mg Documented By: ANGEL Hydromorphone HCl (Hydromorphone Hcl Inj (*Crx) 1 Mg/Ml Syr) 1 mg IV PUSH ONCE STA Stop: 03/07/25 17:50 Last Admin: 03/07/25 18:11 Dose: 1 mg Documented By: ANGEL Hydromorphone HCl (Hydromorphone Hcl Inj (*Crx) 1 Mg/Ml Syr) 1 mg IV PUSH ONCE STA Stop: 03/07/25 19:18 Last Admin: 03/07/25 19:38 Dose: 1 mg Documented By: ANGEL Calcium Gluconate (Calcium Gluc 1,000 Mg/Ns 50 Ml) 1,000 mg in 50 mls @ 100 mls/hr IVPB ONCE ONE Stop: 03/07/25 18:34 Last Infusion: 03/07/25 18:54 Dose: Infused Documented By: Admin: 03/07/25 18:26 Dose: 100 mls/hr Documented By: ANGEL Insulin Human Regular (Insulin Human Regular (*Bkc) 100 Units/Ml) 6 units IV PUSH ONCE ONE Stop: 03/07/25 17:50 Last Admin: 03/07/25 18:48 Dose: 6 units Documented By: ANGEL Co-signed By: DUNIA Labetalol HCl (Labetalol Hcl Inj 100 Mg/20 Ml Vial) 20 mg IV PUSH ONCE ONE Stop: 03/07/25 17:50 Last Admin: 03/07/25 18:11 Dose: 20 mg Documented By: ANGEL Labetalol HCl (Labetalol Hcl Inj 100 Mg/20 Ml Vial) 20 mg IV PUSH ONCE ONE Stop: 03/07/25 18:55 Last Admin: 03/07/25 19:18 Dose: Not Given Documented By: ANGEL Non-Admin Reason: No Dose Required Ondansetron HCl (Ondansetron Inj 4 Mg/2 Ml Vial) 4 mg IV PUSH ONCE STA Stop: 03/07/25 17:50 Last Admin: 03/07/25 18:11 Dose: 4 mg Documented By: ANGEL Sodium Bicarbonate (Sodium Bicarbonate 8.4% 50 Meq/50 Ml Syringe) 50 meq IV PUSH ONCE STA Stop: 03/07/25 17:50 Last Admin: 03/07/25 18:47 Dose: 50 meq Documented By: ANGEL Interventions/Assessments IV / Saline Lock, Insert Start: 03/07/25 16:26 Freq: STAT Status: Active Protocol: Document 03/07/25 16:26 ANGEL (Rec: 03/07/25 16:27 [facility] [id number]) IV Assessment Port-a-Cath Left Chest IV Catheter Access Initiated IV Insertion Date 03/07/25 IV Insertion Time 16:27 IV Site Assessment WNL IV Care and WNL Maintenance Last Vital Signs Pulse Rate 102 H 03/07/25 20:16 Respiratory Rate 17 03/07/25 20:16 Pulse Oximetry 98 03/07/25 20:16 Blood Pressure 160/92 H 03/07/25 20:16 Blood Pressure Mean 111 03/07/25 20:16 Oxygen Delivery Room Air 03/07/25 16:20 Weight 65.9 kg 03/07/25 16:20 Last Result - Abnormals Only RBC 4.13 M/mm3 (4.2-5.4) L 03/07/25 17:09 Hgb 11.7 g/dL (12.0-15.0) L 03/07/25 17:09 Hct 35.9 % (37.0-47.0) L 03/07/25 17:09 [place] % (Auto) 9.5 % (2.6-8.5) H 03/07/25 17:09 APTT 41.3 Seconds (22.3-36.8) H 03/07/25 17:09 Sodium 134 mmol/L (137-145) L 03/07/25 17:09 Potassium 5.5 mmol/L (3.4-5.0) H 03/07/25 17:09 Carbon Dioxide 20 mmol/L (22-30) L 03/07/25 17:09 Anion Gap 14 mmol/L (4-12) H 03/07/25 17:09 BUN 34 mg/dL (7-17) H D 03/07/25 17:09 Creatinine 7.35 mg/dL (0.7-1.0) H 03/07/25 17:09 Estimated GFR 7 (59-) L 03/07/25 17:09 Glucose 394 mg/dL (65-110) H 03/07/25 17:09 POC Capillary Glucose 380 mg/dl (65-105) H 03/07/25 18:47 Calcium 7.6 mg/dL (8.4-10.2) L 03/07/25 17:09 ALT 49 U/L (6-35) H 03/07/25 17:09 Alkaline Phosphatase 214 U/L (38-126) H 03/07/25 17:09 Most Recent Suicide Severity Rating Suicide Severity Rating NO RISK INDICATED 03/07/25 16:20
--- NOTE | 2025-03-07 20:43 | PM.IMHP ---
H&P: HPI History of Present Illness Date/Time: 03/07/25 20:43 Chief Complaint: Headache and nausea Narrative: This is the [age]-year-old female patient who has a history of diabetes type 1 diagnosed at the age of 77 years old, do pressure, chronic abdominal pain, and end-stage renal disease on dialysis Wednesday. The patient has a GI specialist at [facility]. She has a GJ tube. The patient stated that she had been prescribed metoprolol succinate but is not been taking it due to her nausea. She stated that she takes most of her medications in the GJ tube. She did receive dialysis yesterday. The patient stated that she is nauseated on and off and has been having difficulty eating recently. She does have a tube feeding during the night. She is a very brittle diabetic. She came in today because she was having a headache and nausea. Her blood pressure today was 215/ 126. The patient was given Dilaudid, Zofran, and labetalol in the emergency room. Her blood pressure is now 160/92. Her H&H is currently 11.7 and 35.9. Which is above her baseline. She has anemia of chronic disease related to the chronic renal failure. The patient's potassium was found to be 5.5. Her EKG showed normal sinus rhythm with some left ventricular hypertrophy and peaked T-waves anterior septal leads consider hyper acute injury versus hyperkalemia. She was given 6 units of regular insulin, D50 25 g, calcium gluconate, sodium bicarb, and normal saline. However the patient only received 500 mL of the IV fluids due to her end-stage renal failure. Sodium level 134, carbon dioxide 20, anion gap 14, BUN 34, creatinine 7.35. GFR is 7 and her glucose is 394. ALT is 49 and alkaline phosphatase 214. Head CT was read as a followingIMPRESSION: 1. Limited noncontrast CT head shows no acute intracranial lesions. 2. Premature calcific changes of vertebral arteries at the skull base. Chest x-ray was read as a followingIMPRESSION: 1. Mild vascular congestion the lungs. 2. Port catheter and dialysis catheter are present as mentioned above. The patient is being admitted to observation status on the date of service 03/07/2025. Review of Systems Constitutional: Constitutional: Reports as per HPI and Reports no additional constitutional complaints Eyes: Eyes: Reports as per HPI and Reports no additional eye complaints ENT: Reports no additional ear, nose, mouth, and throat complaints and Reports Normal hearing present Cardiovascular: Cardiovascular: Reports no additional cardiovascular complaints Respiratory: Respiratory: Reports as per HPI and Reports no additional respiratory complaints Gastrointestinal: Gastrointestinal: Reports as per HPI and Reports no additional gastrointestinal complaints Genitourinary: Genitourinary: Reports no additional female genitourinary complaints Musculoskeletal: Musculoskeletal: Reports no additional musculoskeletal complaints Integumentary/Breasts: Skin/Breast: Reports system reviewed and no additional complaints, except as docu Neurologic: Reports no additional neurologic complaints and Reports Normal hearing present Psychiatric: Psychiatric: Reports no additional psychiatric complaints and Reports as per HPI Hematologic/Lymphatic: Hematologic/Lymphatic: Reports no additional hematologic/lymphatic complaints Allergic/Immunologic: Allergic/Immunologic: Reports no additional allergic/immunologic complaints [facility] Past Medical History Medical History (Updated 03/08/25 @ 18:05 by Lisa Franks MD) Hyperkalemia End stage renal disease Abdominal pain Munchausen's syndrome Malingering Anemia in chronic kidney disease Diabetic gastroparesis Port-A-Cath in place Type 1 diabetes Diagnosed at age 7 Depression Surgical History Surgical History S/P dialysis catheter insertion (~2022) Status post insertion of percutaneous endoscopic gastrostomy (PEG) tube For gastric drainage Status post jejunostomy (12/2024) For feeds History of cholecystectomy Family History Family History Grandparent Family history of cardiovascular disease Social History Social History Social History: She is not and does not have any children. She lives with her mother and is on disability. She is a lifelong nonsmoker and does not drink alcohol or use illicit substances. Code status: Full code Surrogate decision maker: Mother Smoking status: Never smoker Alcohol intake: never Substance use: never Substance use type: does not use Lack of Transportation: No Lack of Food: Never True Current Housing: I Have Housing Concerned About Future Housing: No Difficulty Paying Gas/Electric Bills: No Difficulty Paying for Meds: No Currently Unemployed: No Education: High School Diploma/GED Difficulty w/ Childcare or Family Care: No Gender identity (if verbalized by the patient): Female Spiritual care concerns: No Meds Home Medications and Allergies Home Medications ?Medication ?Instructions ?Recorded ?Confirmed ?Type insulin lispro 100 unit/mL 1 sliding scale dose subcut PRN 06/02/22 03/07/25 History subcutaneous pen losartan 25 mg tablet 25 mg feeding tube DAILY 06/02/22 03/07/25 History amlodipine 10 mg tablet 10 mg feeding tube DAILY 01/01/25 03/07/25 History carvedilol 12.5 mg tablet 12.5 mg feeding tube Q12H 01/01/25 03/07/25 History escitalopram oxalate 10 mg tablet 10 mg feeding tube DAILY 01/01/25 03/07/25 History glucagon 0.5 mg/0.1 mL 0.5 mg subcut PRN PRN hypoglycemia 01/01/25 03/07/25 History subcutaneous auto-injector (Gvoke HypoPen 2-Pack) isosorbide mononitrate 30 mg 30 mg PO QAM 30 days #30 tabs 01/05/25 03/07/25 Rx tablet,extended release 24 hr clonidine 0.1 mg/24 hr weekly 1 patch transdermal WEEKLY 03/07/25 03/07/25 History transdermal patch ([id number]) insulin glargine 100 unit/mL (3 18 unit subcut .AM 03/07/25 03/07/25 History mL) subcutaneous pen (Lantus Solostar U-100 Insulin) ondansetron 4 mg disintegrating 4 mg feeding tube Q6H 03/07/25 03/07/25 History tablet pantoprazole 40 mg tablet,delayed 40 mg PO BID 03/07/25 03/07/25 History release sevelamer carbonate 800 mg tablet 800 mg feeding tube .tid with meals 03/07/25 03/07/25 History (Renvela) Allergies Allergy/AdvReac Type Severity Reaction Status Date / Time metoclopramide (From Reglan) Allergy Intermediate Muscle Verified 03/07/25 21:13 Spasms trimethobenzamide (From Allergy Intermediate hives Verified 03/07/25 21:13 Tigan) hydralazine Allergy Hives Verified 03/07/25 21:13 Vital Signs Vital Signs - 24 hr 03/07/25 16:20 03/07/25 18:26 03/07/25 18:30 Pulse Rate 105 H 97 98 Respiratory Rate 19 24 H 23 H Blood Pressure 215/126 H Pulse Oximetry 100 100 99 Oxygen Delivery Room Air 03/07/25 18:45 03/07/25 18:47 03/07/25 20:13 Pulse Rate 101 H 101 H 101 H Respiratory Rate 23 H 15 16 Blood Pressure 209/113 H Pulse Oximetry 98 98 98 Oxygen Delivery 03/07/25 20:15 03/07/25 20:16 Pulse Rate 101 H 102 H Respiratory Rate 14 17 Blood Pressure 160/92 H Pulse Oximetry 97 98 Oxygen Delivery Exam Const: General: cooperative, comfortable, no acute distress, well developed, awake, Physically active, average body habitus and well nourished Nutritional Appearance: average body habitus and well nourished Orientation/consciousness: oriented to person, oriented to place, oriented to time and patient oriented x3 Limitations: no limitations HENMT: Head: normal to inspection, No palpable skull fracture present, normocephalic, atraumatic and abrasion Ears: hearing grossly normal bilaterally and external ears normal Eyes: General: appearance normal, both eyes and all related structures Alignment and Position: alignment normal Periorbital: periorbital findings normal Neck: Neck: normal visual inspection, full ROM and no lymphadenopathy Chest: Chest palpation & inspection: normal inspection of the chest Other: port a cath intact to left upper chest and dialysis catheter intact to right upper chest Resp: Effort & Inspection: normal respiratory effort Auscultation: clear to auscultation bilaterally Percussion: percussion normal Cardio: Palpation: normal PMI Rate: regular rate Rhythm: regular rhythm Heart sounds: S1 normal heart sound present and S2 normal heart sound present Peripheral pulses: Peripheral pulses 2+ throughout GI: Inspection: normal to inspection Percussion: Yes normal to percussion Auscultation: normal bowel sounds Rectal Exam: deferred Other: jg tube intact to left upper abdomen : General: Yes no CVA tenderness Skin: General skin exam: normal color Lesions: no lesions Rashes: no rashes Trauma: no lacerations or abrasions Wounds: no wounds Hair: normal Nails: normal Neuro: General: oriented to person, oriented to place, oriented to time and patient oriented x3 Cranial nerves: Yes Equal, round and reactive pupils present and Yes Normal hearing present Cognition (Neuro): normal cognition Speech: normal speech Gait exam (Neuro): Normal gait present Motor exam (neuro): 5/5 motor strength present throughout Sensory Exam: normal sensation Extrem: General: normal to inspection Right upper extremity: normal to inspection and shoulder/upper arm Left upper extremity: normal to inspection and shoulder/upper arm Right lower extremity: normal to inspection Left lower extremity: normal to inspection Psych: Appearance: grossly normal Mental Status: mental status grossly normal Speech and movement: Normal speech and movement present Affect: normal affect Attitude: cooperative Thought process: Normal thought process present Thought content: Yes Normal thought content present Insight: Good insight present (Psych) Judgement: Good judgement present (Psych) H&P: Results Labs Labs: Short CBC 03/07/25 Range/Units 17:09 WBC 4.6 (4.5-10.0) K/mm3 Hgb 11.7 L (12.0-15.0) g/dL Hct 35.9 L (37.0-47.0) % Plt Count 205 (150-375) k/mm3 BMP 03/07/25 17:09 Sodium 134 L Potassium 5.5 H Chloride 100 Carbon Dioxide 20 L BUN 34 H D Creatinine 7.35 H Glucose 394 H Calcium 7.6 L Cardiac Enzymes 03/07/25 Range/Units 17:09 Troponin I < 0.012 (0.000-0.034) ng/mL Liver Function 03/07/25 Range/Units 17:09 Total Bilirubin 0.7 (0.2-1.3) mg/dL AST 27 (14-36) U/L ALT 49 H (6-35) U/L Alkaline Phosphatase 214 H (38-126) U/L Albumin 4.1 (3.5-5.1) g/dL ECG Interpretation: Test Date: 2025-03-07 16:34:04 Measurements Intervals [place] Rate: 103 P: 30 [place]: 143 QRS: -1 QRSD: 86 T: 65 QT: 359 QTc: 470 Interpretive Statements NORMAL SINUS RHYTHM LEFT VENTRICULAR HYPERTROPHY PEAKED T-WAVES ANTEROSEPTAL LEADS, CONSIDER HYPER ACUTE INJURY VERSUS HYPERKALEMIA ARTIFACTS FROM STIMULATOR NOTED ABNORMAL ECG Electronically Signed On 03-07-2025 17:22:20 INHALATION THERAPY AIDES TEACHER by Odilon Gilman M.D. Imaging CT scan - head: Radiologist's impression: ITS Impressions Chest X-Ray 03/07/25 16:34 IMPRESSION: 1. Mild vascular congestion the lungs. 2. Port catheter and dialysis catheter are present as mentioned above. Head CT 03/07/25 18:41 IMPRESSION: 1. Limited noncontrast CT head shows no acute intracranial lesions. 2. Premature calcific changes of vertebral arteries at the skull base. Assessment and Plan Assessment and plan (1) Type 1 diabetes: Qualifiers: Diabetes mellitus complication status: with hyperglycemia Qualified Code(s): E10.65 - Type 1 diabetes mellitus with hyperglycemia Code(s): E10.9 - Type 1 diabetes mellitus without complications Status: Chronic Assessment and Plan: -the patient was diagnosed when she was 7 years old. The patient currently does not have an Omnipod as her equipment is not working the way it should. She has not been able to get in to the supplier to have her limit fix. However she does have a continuous glucose monitor . -she is a very brittle diabetic. She has extreme highs and lows. -today she has mild ketosis. Her anion gap is 14. She was given half of a L of fluids in the emergency room. She was also given insulin as well. -Accu-Cheks AC and HS with sliding scale insulin. -pharmacy to calculate 20% of home dose which is Lantus 18 units. -her blood sugars are currently in the 300s. 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 (2) Hypertension: Qualifiers: Hypertension type: primary hypertension Qualified Code(s): I10 - Essential (primary) hypertension Code(s): I10 - Essential (primary) hypertension Status: Chronic Assessment and Plan: -the patient stated that she stop taking her metoprolol because of complications with her JG tube. -the patient stated that she did well with the clonidine patch last admission and will like to continue with that have prescriptions when she is discharged. -continue with Coreg. Patient should not be on metoprolol and Coreg as are both beta-blockers. -her blood pressure is currently 160/92. She was given labetalol in the emergency room. -continue with amlodipine -continue losartan. -goal for blood pressure should be somewhere around 130/70. -continue with isosorbide. (3) Malingering: Code(s): Z76.5 - Malingerer [conscious simulation] Status: Acute Assessment and Plan: -the patient has been evaluated by a psychiatrist to [facility]. The patient was discussing palliative care because she is wanting IV Benadryl and pain medications at home. (4) Depression: Code(s): F32.9 - Major depressive disorder, single episode, unspecified Status: Acute Assessment and Plan: -continue with Lexapro. The patient denies depression. (5) Intractable nausea and vomiting: Code(s): R11.2 - Nausea with vomiting, unspecified Status: Chronic Assessment and Plan: -the patient stated that she has allergies to Reglan and tigan. -she is on Zofran at home. Will given IV here. -she also stated that IV Benadryl helps with the nausea. (6) Acute abdominal pain: Code(s): R10.9 - Unspecified abdominal pain Status: Acute Assessment and Plan: -p.r.n. Dilaudid. The patient is requesting politics care for pain medication. I suggested that she reach out to pain management outpatient. (7) End stage renal disease on dialysis: Code(s): N18.6 - End stage renal disease; Z99.2 - Dependence on renal dialysis Status: Chronic Assessment and Plan: -she has dialysis on Wednesday. The patient stated that she went this past Wednesday. -nephrology has been consulted. -monitor daily electrolytes. (8) Acute hyperkalemia: Code(s): E87.5 - Hyperkalemia Status: Acute Assessment and Plan: -patient's potassium was 5.5 and she was given D50, insulin, calcium gluconate, and sodium bicarb, -on her EKG she did have some peaked P waves. -repeat potassium level in 4 hours. And treat accordingly. -daily BMPs -she has end-stage renal disease and has dialysis Wednesday. The patient stated that she did have dialysis on Wednesday. (9) Anemia: Code(s): D64.9 - Anemia, unspecified Status: Chronic Assessment and Plan: -the patient has chronic anemia of chronic disease end-stage renal disease. The patient is above her baseline. Her current H&H is 11.7 and 35.9 P (10) Diabetic gastroparesis: Code(s): E11.43 - Type 2 diabetes mellitus with diabetic autonomic (poly)neuropathy; K31.84 - Gastroparesis Status: Chronic Assessment and Plan: -she has a marketing pr intern at [facility]. -she also has a gastric stimulator. -she also has a JG tube and gets tube feedings from 6:00 p.m. to a 8:10 a.m. when she is not nauseated. She takes a nephro. She stated that her medications go to the JG tube. She also eats at times. -she deals with chronic nausea and stated that IV Benadryl Yesi thing that helps her. (11) Headache: Code(s): R51.9 - Headache, unspecified Status: Acute Assessment and Plan: -the patient was given Dilaudid in the emergency room was appears to be helping. -Head CT 03/07/25 18:41 IMPRESSION: 1. Limited noncontrast CT head shows no acute intracranial lesions. 2. Premature calcific changes of vertebral arteries at the skull base. No nuchal rigidity disease noted. Quality VTE Prophylaxis VTE prophylaxis: mechanical ordered
--- NOTE | 2025-03-07 21:10 | ADMGEN ---
This patient, Lynette Bellamy, was admitted to IMU Room 201-01. Patient/family oriented to hospital policies and general routines including ID bracelet, bed and alarms, visiting hours, pain management, procedures, bathroom and other care routines, personal items, smoking policy, room service/diet, and visiting hours. Information on how to activate the Rapid Response Team has been discussed. Patient/Family are encouraged to report perceived risks to care and to ask questions if they do not understand what they are told or what they should do.
[2025-03-07] MEDS: CENTRAL LINE FLUSH 10 ML IV PUSH (22:06)
[2025-03-07] MEDS: HYDROmorphone HCL INJ (*CRX) 1 MG/ML SYR 0.5 MG IV PUSH (23:54)
[2025-03-08] VITALS (32 sets, daily range): BP systolic 153–221; BP diastolic 85–136; PULSE 83–116; RESP 12–16; TEMP 36.2–37.1; O2SAT 98–100; BMI 24.9
[2025-03-08 00:04] LABS: Magnesium 2.1 mg/dL (1.6-2.3)
[2025-03-08 00:39] LABS: Potassium 4.1 mmol/L (3.4-5.0)
--- OUTSIDE RECORDS SUMMARY | 2025-03-08 00:57 | XMS_ITS | Clinical Summary ---
Author Organization [facility] Address [address] [place] [address] Care Team Providers Care Office Professional Name Role Phone Edgardo Aldridge MD Primary Care Provider [phone] Source Comments [facility],non-owned Affiliates and Associated Physician Practices is amultiple site organization consisting of ambulatory clinics and hospital sitesin [place], [place], [place] and [place]. This disclosure is being madepursuant to the Care Everywhere program and may not contain all information available regarding this patient. Last updated 18.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 Not on file [...] examination HEMOGLOBIN A1C Routine 06/08/2018 7:21 AM TITLE I MATH TUTOR from Last 3 Months or Most Recently Relevant to Health Maintenance Results * (ABNORMAL) BASIC METABOLIC PANEL (CALCIUM TOTAL) (02/01/2024 9:01 AM CDT) BUN 54(H) 7 - 26 mg/dL 02/01/2024 9:58 AM [facility] Creatinine 6.37(H) 0.56 - 0.96 mg/dL 02/01/2024 9:58 AM [facility] Sodium 136 136 - 145 mmol/L 02/01/2024 9:58 AM [facility] Potassium 5.8(H) 3.5 - 4.5 mmol/L 02/01/2024 9:58 AM [facility] Chloride 106 98 - 107 mmol/L 02/01/2024 9:58 AM [facility] CO2 20(L) 22 - 29 mmol/L 02/01/2024 9:58 AM [facility] Glucose 35(LL) 70 - 115 mg/dL 02/01/2024 9:58 AM [facility] Calcium 8.4 8.4 - 10.2 mg/dL 02/01/2024 9:58 AM [facility] Anion Gap 10 6 - 16 02/01/2024 9:58 AM [facility] BUN/Creatinine Ratio 8 7 - 23 02/01/2024 9:58 AM [facility] Osmolality Calculated 293 275 - 295 mOsm/kg 02/01/2024 9:58 AM [facility] eGFR by CKD-EPI 9(L) >=90 mL/min/1.7 3 m2 02/01/2024 9:58 AM [facility] Blood BLOOD SPECIMEN / Unknown Venipuncture / Unknown 02/01/2024 9:01 AM CDT 02/01/2024 9:08 AM CDT Tess Dunham MD LAB - CHEMISTRY ORDERABLES Final Result [id number] [place] [address], [facility] [phone] * (ABNORMAL) HEMOGLOBIN A1C (06/08/2018 7:21 AM TITLE I MATH TUTOR) Hemoglobin A1c 14.5(H) 4.2 - 6.3 % 06/08/2018 8:06 AM TITLE I MATH TUTOR [facility] Estimated Average Glucose 369 mg/dL 06/08/2018 8:06 AM TITLE I MATH TUTOR [facility] Blood BLOOD SPECIMEN / Unknown Lab Venipuncture / Unknown 06/08/2018 7:21 AM TITLE I MATH TUTOR 06/08/2018 7:37 AM TITLE I MATH TUTOR Corina Simmons MD LAB - CHEMISTRY ORDERABLES Final Result [facility] [address] [place] [address] from Last 3 Months or Most Recently Relevant to Health [place] [address] MEDICAID - [place] [facility] MEDICAID - [place] MEDICAID - OUT [...] 10:29 AM 07/09/2015 1:11 PM Care Teams Office Professional Relationship Specialty Start Date End Date Edgardo Aldridge MD [address] [facility] [address] [id number] PCP - General Family Medicine 12/28/23
--- OUTSIDE RECORDS SUMMARY | 2025-03-08 00:58 | XMS_ITS | Encounter Summary ---
Author Organization [facility] Address [address] [address] Care Team Providers Care Post Anesthesia Care Unit Nurse Name Role Phone Lay Villalta MD Primary Care Provider [phone] Edgardo Aldridge MD Primary Care Provider [phone] Encounter Details Date Type Department Care Team (Late st Contact Info) Description 07/17/2019 Lab Requisition [facility] [address] [place] [address] Unknown, Provider Social History Tobacco Use Types Packs/Day Years Used Date Smoking Tobacco: Never Smokeless Tobacco: Never Alcohol Use Standard Drinks/Week Comments No 0 (1 standard drink = 0.6 oz pur e alcohol) Comments Unknown Sex and Gender Information Value Date Recorded Sex Assigned at Not on file Legal Sex Female 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 Answer Date of Assessment Author No 06/08/2018 6:53 AM Gilbert Guadalupe RN * Is person blind or have serious difficulty seeing? Answer Date of Assessment Author No 06/08/2018 6:53 AM Gilbert uGadalupe RN * Does person have serious difficulty [...] Not detected, Invalid 07/17/2019 11:51 PM CDT [facility] Microbiology SPECIMEN FROM NASOPHARYNGEAL STRUCTURE / Unknown Collection / Unknown 07/16/2019 3:17 PM CDT 07/17/2019 11:09 AM CDT Narrative [facility] - 07/17/2019 11:51 PM CDT This Real Time RT-PCR assay was developed and its performance characteristics determined by [facility]. This test has been [...] LAB - MICROBIOLOGY ORDERABLES F inal Result [facility] [address] [place] [address], [facility] [phone] documented in this encounter Visit Diagnoses Not on filedocumented in this encounter Care Teams Post Anesthesia Care Unit Nurse Relationship Specialty Start Date End Date Lay Villalta MD [address] [place] [phone] PCP - General Family Medicine 07/07/15 12/27/23 Edgardo Aldridge MD [address] [place] [id number] PCP - General Family Medicine 12/28/23 documented as of this encounter
--- OUTSIDE RECORDS SUMMARY | 2025-03-08 00:58 | XMS_ITS | Clinical Summary ---
Author Organization [facility] Address [address] [facility] [place] [address] Phone Care Team Providers Care Manager Software Development Name Role Phone Unavailable Primary Care Provider [...] now. Urged patient to re-establish with previous hanger off for management. Need back on insulin pump [...] long acting insulin with SSI F/u with hanger off Last Assessment & Plan: -Brittle DM1 -Home [...] (PF) 02/14/2021 MMR 12/03/2000,10/12/1996 PPD Test 05/22/2016 [employer] COVID-19 Vaccine 01/24/2021 Poliovirus Trivalent Vaccine , [...] PM CDT Legal Sex Female 12:26 PM EFFERVESCENT SALTS COMPOUNDER Gender Identity Female 11/05/2020 3:34 PM CDT Sexual Orientation Straight 11/05/2020 3: 34 PM CDT Last Filed Vital Signs Vital Sign Reading Time Taken Comments Blood Pressure 138/78 06/24/2022 7:47 PM EFFERVESCENT SALTS COMPOUNDER Pulse 95 06/24/2022 7:47 PM EFFERVESCENT SALTS COMPOUNDER Temperature 37 C (98.6 F) 06/24/2022 6:25 PM EFFERVESCENT SALTS COMPOUNDER Respiratory Rate 22 06/24/2022 7:47 PM EFFERVESCENT SALTS COMPOUNDER Oxygen Saturation 100% 06/24/2022 7:47 PM EFFERVESCENT SALTS COMPOUNDER Inhaled Oxygen Concentration - - Weight 54.4 kg (120 lb) 06/24/2022 4:51 PM EFFERVESCENT SALTS COMPOUNDER Height 162.6 cm (5' 4) 12/03/2021 10:40 [...] COMPREHENSIVE METABOLIC PANEL STAT 06/24/2022 5:05 PM EFFERVESCENT SALTS COMPOUNDER MICROALBUMIN/CREATININ E URINE RANDOM Routine 02/12/2021 3:35 PM CDT Type 1 diabetes mellitus with diabetic neuropathy (HCC ) HEMOGLOBIN A1C Routine 01/16/2021 3:32 AM CDT HEPATITIS PANEL, ACUTE STAT 8:38 PM CDT from Last 3 Months or Most Recently Relevant to Health Maintenance Results * (ABNORMAL) Comprehensive metabolic panel (06/24/2022 5:05 PM EFFERVESCENT SALTS COMPOUNDER) Sodium 139 135 - 145 mmol/L 06/24/2022 5:38 PM EFFERVESCENT SALTS COMPOUNDER [facility] Potassium 4.4 3.5 - 5.0 mmol/L 06/24/2022 5:[address] [facility] Chloride 108(H) 98 - 107 mmol/L 06/24/2022 5:[address] [facility] Carbon Dioxide 23 21 - 32 mmol/L 06/24/2022 5:[address] [facility] Anion Gap 8 6 - 16 mmol/L 06/24/2022 5:[address] [facility] Glucose 421(HH) 70 - 110 mg/dL 06/24/2022 5:[address] [facility] BUN 33(H) 7 - 18 mg/dL 06/24/2022 5:[address] [facility] Creatinine 2.70(H) 0.60 - 1.30 mg/dL 06/24/2022 5:[address] [facility] BUN/Creatinine Ratio 12.2 11.7 - 13.9 06/24/2022 5:[address] [facility] Calcium 8.9 8.5 - 10.1 mg/dL 06/24/2022 5:[address] [facility] Comment:Calcium measurements are adversely affected by the use of Omniscan during MRI. Analysis of calcium is not recommended for 12 to 24 hours after the use of the contrast agent. Protein total 7.5 6.4 - 8.2 g/dL 06/24/2022 5:[address] [facility] Albumin 2.8(L) 3.4 - 5.0 g/dL 06/24/2022 5:[address] [facility] Bilirubin Total 0.2 0.0 - 1.0 mg/dL 06/24/2022 5:[address] [facility] Comment:Use of this assay is not recommended for patients undergoing treatment with eltrombopag due to the potential for falsely elevated results. AST 39(H) 7 - 34 U/L 06/24/2022 5:[address] [facility] ALT 77(H) 16 - 62 U/L 06/24/2022 5:[address] [facility] ALP 224(H) 50 - 136 U/L 06/24/2022 5:[address] [facility] eGFR non- 21.1(L) >=60.0 mL/min/1.7 3m2 06/24/2022 5:[address] [facility] eGFR 25.6(L) >=60.0 mL/min/1.7 3m2 06/24/2022 5:[address] [facility] Comment:The estimated GFR is based on the Modification of Diet in Renal Disease Study (MDRD) equation using average adult body surface area. This equation has not been validated for use with age groups below 18 or over 70, women, patients with serious co-morbid conditions, or persons with extremes of body size, muscle mass or nutritional status. Blood 06/24/2022 5:05 PM EFFERVESCENT SALTS COMPOUNDER 06/24/2022 5:05 PM EFFERVESCENT SALTS COMPOUNDER us Cony Alexander DO LAB BLOOD ORDERABLES Fin al Result Performing Organization Address City/[facility]/ZIP Co de Phone Number [facility] [address] [address] * (ABNORMAL) Microalbumin/Creatinine Urine (02/12/2021 3:35 PM [...] Fan DO URINE ORDERABLES Final Re sult [facility] [address] [address] * (ABNORMAL) Hemoglobin A1c (01/16/2021 3:32 AM CDT) Hemoglobin A1c >14.0(H) 4.5 - 6.2 % 01/16/2021 7:[address] [facility] Blood Venipuncture / Unknown 01/16/2021 3:32 AM CDT 01/16/2021 3:34 AM CDT us Betty Johansen MD LAB BLOOD ORDERABLES Fin al Result [facility] [address] [place] [address] * Hepatitis Panel, Acute (08/10/2020 8:38 PM [...] Unless otherwise indicated, all testing performed at: [facility] [address] [place] [address] [address] Attendant: IZA GILES M.D. [facility]# [id number] Blood Venipuncture / Unknown 08/10/2020 8:38 PM CDT 08/10/2020 8:44 PM CDT us Xin Alejandre MD LAB BLOOD ORDERABLES Final Result [address] [address] from Last 3 Months or Most Recently Relevant to Health Maintenance Insurance MEDICAID [place] Advance Directives For more information, please contact: [phone] (7AM - 5PM [facility], 7 days a week) * Full [...]
--- OUTSIDE RECORDS SUMMARY | 2025-03-08 00:58 | XMS_ITS | Encounter Summary ---
Author Organization [facility] Address [address] [place] [address] Phone Care Team Providers Care Senior Cognos Developer Name Role Phone Shown, Devang Alegre DO Primary Care Provider [phone] Encounter Details Date Type Department Care Team (Late st Contact Info) Description 12/03/2021 Telephone [facility] [address] [place] [id number] Leslie Pruitt Social History Tobacco Use Types Packs/Day Years Used Date Smoking Tobacco: Never Smokeless Tobacco: Never Alcohol Use Standard Drinks/Week Comments No 0 (1 standard drink = 0.6 oz pur e alcohol) Comments No Sex and Gender Information Value Date Recorded Sex Assigned at Female 11/05/2020 3:34 PM CDT Legal Sex Female 12:26 PM HOME CARE MANAGER RN Gender Identity Female 11/05/2020 3:34 PM CDT [...] d for the patient 03/29/2021 7:04 AM HOME CARE MANAGER RN documented as of this encounter Care Teams Senior Cognos Developer Relationship Specialty Start Date End Date Shown, Devang Algere DO [address] [address] PCP - General Family Medicine 09/11/21 12/06/24 documented as of this encounter
--- OUTSIDE RECORDS SUMMARY | 2025-03-08 00:58 | XMS_ITS | Patient Health Record ---
Author Organization [facility] Address [address] [place] [address] Care Team Providers Care Trim Technician Name Role Phone Daxa Hill Unavailable [phone] Reason For Referral No Information Plan Of Treatment No Information
[2025-03-08] MEDS: HYDROmorphone HCL INJ (*CRX) 1 MG/ML SYR 0.5 MG IV PUSH ×3 (04:15→21:28)
[2025-03-08] MEDS: CENTRAL LINE FLUSH 10 ML IV PUSH ×3 (04:17→21:29)
[2025-03-08 04:49] LABS: Alanine Aminotransferase 40 U/L (6-35); Albumin Level 3.8 g/dL (3.5-5.1); Alkaline Phosphatase 206 U/L (38-126); Anion Gap 28 mmol/L (4-12); Aspartate Amino Transferase 23 U/L (14-36); Bilirubin,Total 0.5 mg/dL (0.2-1.3); Blood Urea Nitrogen 39 mg/dL (7-17); Calcium 7.4 mg/dL (8.4-10.2); Carbon Dioxide 22 mmol/L (22-30); Chloride 102 mmol/L (98-107); Estimated CRCL calculation 9 ml/min; Estimated Glomerular Filt Rate 6; Glucose 402 mg/dL (65-110); Potassium 4.6 mmol/L (3.4-5.0); Sodium 152 mmol/L (137-145); Total Protein 6.7 g/dL (6.3-8.2)
[2025-03-08] MEDS: INSULIN GLARGINE (*BKC) 100 UNITS/ML 14.4 UNITS SUB-Q (08:29)
[2025-03-08] MEDS: PANTOPRAZOLE 40 MG TABLET PO (08:32)
[2025-03-08] MEDS: SEVELAMER CARBONATE 800 MG TABLET FEED TUBE (08:32)
[2025-03-08] MEDS: LOSARTAN POTASSIUM 50 MG TABLET FEED TUBE (08:32)
[2025-03-08] MEDS: ISOSORBIDE MONONITRATE 30 MG TAB.ER.24H PO (08:32)
[2025-03-08] MEDS: ESCITALOPRAM OXALATE 10 MG TABLET FEED TUBE (08:32)
--- NOTE | 2025-03-08 10:02 | PC.NURSE ---
916 This RN spoke with KADY Tuttle in dialysis. Notified KADY Tuttle of patient hyperglycemia awaiting insulin orders. This RN asked KADY Tuttle if he'd like me to delay patient's transport to dialysis until after insulin orders are received and given. KADY Tuttle states to bring patient up to dialysis now. 919- patient transported to dialysis
--- NOTE | 2025-03-08 10:20 | P.PNNP_ITS ---
Progress Note: A&P Assessment and Plan (1) End stage renal disease: Code(s): N18.6 - End stage renal disease Status: Chronic Assessment and Plan: * HD today * continue //Wednesday dialysis schedule while hospitalized * follow volume status, clearance, and electrolytes * outpatient dialysis clinic = [facility] in [place] * primary market research senior project manager = Dr. Odilon Tellez FULL CONSULT TO FOLLOW... Subjective Date/time seen: 03/08/25 10:20 Interval history: Being seen for end stage renal disease on hemodialysis. Tolerating dialysis treatment at the time of my visit (seen on HD at 10:10am); no apparent distress noted when seen; BP appears to be doing better as well; no acute complaints voiced currently. Exam 2 Narrative: General: WD/WN female in NAD Heart: normal S1 and S2; no rub Lungs: clear anteriorly Abdomen: soft, nontender, nondistended, positive bowel sounds Extremities: no cyanosis or clubbing; no edema Skin: warm and dry Objective Data Vital Signs Vital Signs: Vital Signs Temp Pulse Resp BP Pulse Ox O2 Del Method 03/08/25 10:15 95 155/100 H 03/08/25 10:00 96 178/111 H 03/08/25 10:00 95 03/08/25 09:47 95 182/109 H 03/08/25 09:33 98.2 F 96 16 184/112 H 100 03/08/25 09:19 105 H 179/96 H 03/08/25 08:33 116 H 03/08/25 08:07 210/109 H 03/08/25 08:00 Room Air 03/08/25 08:00 108 H 03/08/25 08:00 97.7 F 109 H 16 220/117 H 100 03/08/25 06:00 106 H 03/08/25 04:37 97.9 F 101 H 15 207/109 H 98 03/08/25 04:00 101 H 03/08/25 04:00 101 H 15 98 Room Air 03/08/25 02:00 104 H 03/08/25 00:00 98 16 98 Room Air 03/07/25 23:19 98.9 F 101 H 16 168/89 H 98 03/07/25 22:00 102 H 03/07/25 21:30 102 H 03/07/25 20:58 98.9 F 103 H 16 160/92 H 99 03/07/25 20:16 102 H 17 160/92 H 98 03/07/25 20:15 101 H 14 97 03/07/25 20:13 101 H 16 98 03/07/25 18:47 101 H 15 209/113 H 98 03/07/25 18:45 101 H 23 H 98 03/07/25 18:30 98 23 H 99 03/07/25 18:26 97 24 H 100 Intake/Output Intake/Output: Intake & Output 03/05/25 03/06/25 03/07/25 03/08/25 23:59 23:59 23:59 23:59 Intake Total 1050 250 Output Total 1001 Balance 1050 -751 Meds/Results Medications: Active Medications Generic Name Dose Route Start Last Admin Trade Name Freq PRN Reason Stop Dose Admin Amlodipine Besylate 10 mg 03/08/25 09:00 03/08/25 08:31 Amlodipine Besylate 10 Mg Tablet FEED TUBE 10 mg DAILY JAYME Administration Carvedilol 25 mg 03/08/25 08:00 03/08/25 08:33 Carvedilol 25 Mg Tablet FEED TUBE 25 mg Q12HR JAYME Administration Clonidine HCl 1 patch 03/08/25 09:00 03/08/25 05:48 Clonidine 0.2 Mg/24 Hr Patch TRANSDERM 1 patch WEEKLY JAYME Administration Dextrose 12.5 gm 03/07/25 22:02 Dextrose 50% 25 Gm/50 Ml Syringe IV PUSH PRN PRN Hypoglycemia Protocol Escitalopram Oxalate 10 mg 03/08/25 09:00 03/08/25 08:32 Escitalopram Oxalate 10 Mg Tablet FEED TUBE 10 mg DAILY JAYME Administration Glucagon 1 mg 03/07/25 22:02 Glucagon For Inj 1 Mg Vial IM PRN PRN Hypoglycemia Protocol Glucose 15 gm 03/07/25 22:02 Glucose Oral Gel 15 Gm Of Glucse In 37.5 Gm Tube PO PRN PRN Hypoglycemia Protocol Heparin Sodium (Beef Lung) 50 units 03/08/25 09:00 03/08/25 08:33 Heparin Flush 50 Units/5 Ml Syringe IV PUSH Not Given QAM JAYME Heparin Sodium (Beef Lung) 50 units 03/07/25 16:25 Heparin Flush 50 Units/5 Ml Syringe IV PUSH PRN PRN after intermittent infusion Heparin Sodium (Beef Lung) 50 units 03/07/25 16:25 Heparin Flush 50 Units/5 Ml Syringe IV PUSH PRN PRN after blood draws Heparin Sodium (Porcine) 500 units 03/07/25 16:25 Heparin Sodium Lock Flush 500 Units/5 Ml Syringe IV PUSH PRN PRN see comments below Dextrose 1,000 mls @ 100 mls/hr 03/07/25 22:02 Dextrose 5% 1,000 Ml IVPB PRN PRN Hypoglycemia Protocol Albumin Human 50 mls @ 999 mls/hr 03/08/25 08:29 Albutein IVPB 04/07/25 08:28 Q10M PRN HYPOTENSION Insulin Aspart 3 - 6 units 03/08/25 08:00 03/08/25 16:25 Insulin Aspart (*Bkc) 100 Units/Ml SUB-Q Not Given TIDWM JAYME Protocol Insulin Aspart 3 - 6 units 03/08/25 12:00 Insulin Aspart (*Bkc) 100 Units/Ml SUB-Q Q6HR JAYME Protocol Insulin Glargine 14.4 units 03/08/25 09:00 03/08/25 08:29 Insulin Glargine (*Bkc) 100 Units/Ml SUB-Q 14.4 units QAM JAYME Administration Isosorbide Mononitrate 30 mg 03/08/25 09:00 03/08/25 08:32 Isosorbide Mononitrate 30 Mg Tab.Er.24h PO 30 mg QAM JAYME Administration Losartan Potassium 50 mg 03/08/25 09:00 03/08/25 08:32 Losartan Potassium 50 Mg Tablet FEED TUBE 50 mg DAILY JAYME Administration Miscellaneous Information 0 each 03/08/25 00:01 03/08/25 10:34 Duplicate Sliding Scale- Please Dc If Not Needed. Per Rn Chuck Does Not Have Continuous XX 04/07/25 00:00 Not Given CLARIFY JAYME Pantoprazole Sodium 40 mg 03/08/25 09:00 03/08/25 08:32 Pantoprazole 40 Mg Tablet PO 40 mg Q12HR JAYME Administration Prochlorperazine Edisylate 10 mg 03/08/25 12:17 03/08/25 12:29 Prochlorperazine Edisylate 10 Mg/2 Ml Vial IV PUSH 10 mg Q6H PRN Administration Nausea And Vomiting Sevelamer Carbonate 800 mg 03/08/25 08:00 03/08/25 16:25 Sevelamer Carbonate 800 Mg Tablet FEED TUBE Not Given TIDWM [facility] Sodium Chloride 10 ml 03/07/25 22:00 03/08/25 13:31 Central Line Flush IV PUSH 10 ml Q8HR JAYME Administration Radiology Results: ITS Impressions Chest X-Ray 03/07/25 16:34 IMPRESSION: 1. Mild vascular congestion the lungs. 2. Port catheter and dialysis catheter are present as mentioned above. Head CT 03/07/25 18:41 IMPRESSION: 1. Limited noncontrast CT head shows no acute intracranial lesions. 2. Premature calcific changes of vertebral arteries at the skull base. Labs Labs: Laboratory Tests 03/07/25 17:09 03/08/25 04:20 Calcium 7.4 L Total Bilirubin 0.5 AST 23 ALT 40 H Alkaline Phosphatase 206 H Total Protein 6.7 Albumin 3.8
[2025-03-08] MEDS: PROCHLORPERAZINE EDISYLATE 10 MG/2 ML VIAL IV PUSH ×2 (12:29→20:28)
--- NOTE | 2025-03-08 13:41 | PC.NURSE ---
1325 Pt returned from dialysis
--- NOTE | 2025-03-08 14:15 | P.PNIM_ITS ---
Progress Note: A&P Assessment and Plan (1) Type 1 diabetes: Qualifiers: Diabetes mellitus complication status: with hyperglycemia Qualified Code(s): E10.65 - Type 1 diabetes mellitus with hyperglycemia Code(s): E10.9 - Type 1 diabetes mellitus without complications Status: Chronic Assessment and Plan: -the patient was diagnosed when she was 7 years old. The patient currently does not have an Omnipod as her equipment is not working the way it should. She has not been able to get in to the supplier to have her limit fix. However she does have a continuous glucose monitor . -she is a very brittle diabetic. She has extreme highs and lows. -today she has mild ketosis. Her anion gap is 14. She was given half a L of fluids in the emergency room. She was also given insulin as well. -Accu-Cheks AC and HS with sliding scale insulin. Continue with Lantus -A1c on 01/01/2025 was 8.4 -the patient does have an electrical high tension tester at [facility] -she has multiple complications due to her diabetes such as nephropathy, neuropathy, and gastroparesis. (2) Hypertension: Qualifiers: Hypertension type: primary hypertension Qualified Code(s): I10 - Essential (primary) hypertension Code(s): I10 - Essential (primary) hypertension Status: Chronic Assessment and Plan: -the patient stated that she stop taking her metoprolol because of complications with her JG tube. -the patient stated that she did well with the clonidine patch last admission and will like to continue with that have prescriptions when she is discharged. -Uncontrolled blood pressure. Increased losartan and Coreg. Added hydralazine as needed. Continue with clonidine patch -her blood pressure is currently 160/92. She was given labetalol in the emergency room. -continue with amlodipine -continue losartan. -goal for blood pressure should be somewhere around 130/70. -continue with isosorbide. (3) Malingering: Code(s): Z76.5 - Malingerer [conscious simulation] Status: Acute Assessment and Plan: -the patient has been evaluated by a psychiatrist to [facility]. The patient was discussing palliative care because she is wanting IV Benadryl and pain medications at home. Consult palliative care (4) Depression: Code(s): F32.9 - Major depressive disorder, single episode, unspecified Status: Acute Assessment and Plan: -continue with Lexapro. The patient denies depression. (5) Intractable nausea and vomiting: Code(s): R11.2 - Nausea with vomiting, unspecified Status: Chronic Assessment and Plan: -the patient stated that she has allergies to Reglan and tight again. -she is on Zofran at home. Continue IV zofran -she also stated that IV Benadryl helps with the nausea. (6) Acute abdominal pain: Code(s): R10.9 - Unspecified abdominal pain Status: Acute Assessment and Plan: Monitor for now (7) End stage renal disease on dialysis: Code(s): N18.6 - End stage renal disease; Z99.2 - Dependence on renal dialysis Status: Chronic Assessment and Plan: -she has dialysis on Wednesday. The patient stated that she went this past Wednesday. -nephrology has been consulted. -monitor daily electrolytes. (8) Acute hyperkalemia: Code(s): E87.5 - Hyperkalemia Status: Acute Assessment and Plan: -patient's potassium was 5.5 and she was given D50, insulin, calcium gluconate, and sodium bicarb, Hyperkalemia improved y. -daily BMPs -she has end-stage renal disease and has dialysis Wednesday. The patient stated that she did have dialysis on Wednesday. (9) Anemia: Code(s): D64.9 - Anemia, unspecified Status: Chronic Assessment and Plan: -the patient has chronic anemia of chronic disease end-stage renal disease. The patient is above her baseline. Her current H&H is 11.7 and 35.9 P (10) Diabetic gastroparesis: Code(s): E11.43 - Type 2 diabetes mellitus with diabetic autonomic (poly)neuropathy; K31.84 - Gastroparesis Status: Chronic Assessment and Plan: -she has a electrical high tension tester at [facility]. -she also has a gastric stimulator. -she also has a JG tube and gets tube feedings from 6:00 p.m. to a 8:10 a.m. when she is not nauseated. She takes a nephro. She stated that her medications go to the JG tube. She also eats at times. -she deals with chronic nausea and stated that IV Benadryl Yesi thing that helps her. (11) Headache: Code(s): R51.9 - Headache, unspecified Status: Acute Assessment and Plan: -the patient was given Dilaudid in the emergency room was appears to be helping. -Head CT 03/07/25 18:41 IMPRESSION: 1. Limited noncontrast CT head shows no acute intracranial lesions. 2. Premature calcific changes of vertebral arteries at the skull base. No nuchal rigidity disease noted. Subjective Date/time seen: 03/08/25 14:15 Interval history: Patient was seen and examined bedside. She is back from dialysis. She has complained of nausea vomiting and headache. Dilaudid and Benadryl has been discontinued. Will consult palliative care team. Blood sugar was 425 in the morning. Improving after getting Lantus. SSI changed to moderate. Uncontrolled blood pressure. Increased losartan and Coreg. Added hydralazine as needed. Continue with clonidine patch Review of Systems Constitutional: Constitutional: Reports as per HPI and Reports no additional constitutional complaints Eyes: Eyes: Reports as per HPI and Reports no additional eye complaints ENT: Reports system reviewed and no additional complaints, except as documented and Reports Normal hearing present Cardiovascular: Cardiovascular: Reports no additional cardiovascular complaints Respiratory: Respiratory: Reports as per HPI and Reports no additional respiratory complaints Gastrointestinal: Gastrointestinal: Reports as per HPI and Reports no additional gastrointestinal complaints Genitourinary: Genitourinary: Reports no additional female genitourinary complaints Musculoskeletal: Musculoskeletal: Reports no additional musculoskeletal complaints Integumentary/Breasts: Skin/Breast: Reports system reviewed and no additional complaints, except as docu Neurologic: Reports system reviewed and no additional complaints, except as documented and Reports Normal hearing present Psychiatric: Psychiatric: Reports no additional psychiatric complaints and Reports as per HPI Hematologic/Lymphatic: Hematologic/Lymphatic: Reports no additional hematologic/lymphatic complaints Allergic/Immunologic: Allergic/Immunologic: Reports no additional allergic/immunologic complaints Exam Const: General: cooperative, comfortable, no acute distress, well developed, awake, Physically active, average body habitus and well nourished Nutritional Appearance: average body habitus and well nourished Orientation/consciousness: oriented to person, oriented to place, oriented to time and patient oriented x3 Limitations: no limitations HENMT: Head: normal to inspection, No palpable skull fracture present, normocephalic, atraumatic and abrasion Ears: hearing grossly normal bilaterally and external ears normal Eyes: General: appearance normal, both eyes and all related structures Alignment and Position: alignment normal Periorbital: periorbital findings normal Pupils: Equal, round and reactive pupils present Neck: Neck: normal visual inspection, full ROM and no lymphadenopathy Chest: Chest palpation & inspection: normal inspection of the chest Resp: Effort & Inspection: normal respiratory effort Auscultation: clear to auscultation bilaterally Percussion: percussion normal Cardio: Palpation: normal PMI Rate: regular rate Rhythm: regular rhythm Heart sounds: S1 normal heart sound present and S2 normal heart sound present Peripheral pulses: Peripheral pulses 2+ throughout GI: Inspection: normal to inspection Auscultation: normal bowel sounds Rectal Exam: deferred : General: Yes no CVA tenderness Back/Spine/Pelvis: Back: no CVA tenderness Skin: General skin exam: normal color Lesions: no lesions Rashes: no rashes Trauma: no lacerations or abrasions Wounds: no wounds Hair: normal Nails: normal Neuro: General: oriented to person, oriented to place, oriented to time and patient oriented x3 Cranial nerves: Yes Equal, round and reactive pupils present and Yes Normal hearing present Cognition (Neuro): normal cognition Speech: normal speech Gait exam (Neuro): Normal gait present Motor exam (neuro): 5/5 motor strength present throughout Sensory Exam: normal sensation Extrem: General: normal to inspection Right upper extremity: normal to inspection and shoulder/upper arm Left upper extremity: normal to inspection and shoulder/upper arm Right lower extremity: normal to inspection Left lower extremity: normal to inspection Psych: Appearance: grossly normal Mental Status: mental status grossly normal Speech and movement: Normal speech and movement present Affect: normal affect Attitude: cooperative Thought process: Normal thought process present Insight: Good insight present (Psych) Judgement: Good judg ement present (Psych) Objective Data Vital Signs Vital Signs: Vital Signs - 24 hr 03/07/25 16:20 03/07/25 18:26 03/07/25 18:30 Temperature Pulse Rate 105 H 97 98 Respiratory Rate 19 24 H 23 H Blood Pressure 215/126 H Pulse Oximetry 100 100 99 Oxygen Delivery Room Air 03/07/25 18:45 03/07/25 18:47 03/07/25 20:13 Temperature Pulse Rate 101 H 101 H 101 H Respiratory Rate 23 H 15 16 Blood Pressure 209/113 H Pulse Oximetry 98 98 98 Oxygen Delivery 03/07/25 20:15 03/07/25 20:16 03/07/25 20:58 Temperature 98.9 F Pulse Rate 101 H 102 H 103 H Respiratory Rate 14 17 16 Blood Pressure 160/92 H 160/92 H Pulse Oximetry 97 98 99 Oxygen Delivery 03/07/25 21:30 03/07/25 22:00 03/07/25 23:19 Temperature 98.9 F Pulse Rate 102 H 102 H 101 H Respiratory Rate 16 Blood Pressure 168/89 H Pulse Oximetry 98 Oxygen Delivery 03/08/25 00:00 03/08/25 02:00 03/08/25 04:00 Temperature Pulse Rate 98 104 H 101 H Respiratory Rate 16 15 Blood Pressure Pulse Oximetry 98 98 Oxygen Delivery Room Air Room Air 03/08/25 04:00 03/08/25 04:37 03/08/25 06:00 Temperature 97.9 F Pulse Rate 101 H 101 H 106 H Respiratory Rate 15 Blood Pressure 207/109 H Pulse Oximetry 98 Oxygen Delivery 03/08/25 08:00 03/08/25 08:00 03/08/25 08:00 Temperature 97.7 F Pulse Rate 109 H 108 H Respiratory Rate 16 Blood Pressure 220/117 H Pulse Oximetry 100 Oxygen Delivery Room Air 03/08/25 08:07 03/08/25 08:33 03/08/25 09:19 Temperature Pulse Rate 116 H 105 H Respiratory Rate Blood Pressure 210/109 H 179/96 H Pulse Oximetry Oxygen Delivery 03/08/25 09:33 03/08/25 09:47 03/08/25 10:00 Temperature 98.2 F Pulse Rate 96 95 95 Respiratory Rate 16 Blood Pressure 184/112 H 182/109 H Pulse Oximetry 100 Oxygen Delivery 03/08/25 10:00 03/08/25 10:15 03/08/25 10:30 Temperature Pulse Rate 96 95 83 Respiratory Rate Blood Pressure 178/111 H 155/100 H 166/99 H Pulse Oximetry Oxygen Delivery 03/08/25 10:45 03/08/25 11:00 03/08/25 11:15 Temperature Pulse Rate 94 92 95 Respiratory Rate Blood Pressure 164/96 H 153/93 H 180/99 H Pulse Oximetry Oxygen Delivery 03/08/25 11:30 03/08/25 11:45 03/08/25 12:00 Temperature Pulse Rate 94 100 115 H Respiratory Rate Blood Pressure 172/102 H 184/113 H 221/136 H Pulse Oximetry Oxygen Delivery 03/08/25 12:00 03/08/25 12:15 03/08/25 12:30 Temperature Pulse Rate 114 H 102 H 103 H Respiratory Rate Blood Pressure 186/114 H 176/111 H Pulse Oximetry Oxygen Delivery 03/08/25 12:49 03/08/25 12:53 03/08/25 13:25 Temperature 97.9 F 97.5 F L Pulse Rate 98 95 85 Respiratory Rate 12 12 Blood Pressure 182/110 H 180/102 H 183/91 H Pulse Oximetry 100 98 Oxygen Delivery Intake/Output Intake/Output: Intake & Output 03/05/25 03/06/25 03/07/25 03/08/25 23:59 23:59 23:59 23:59 Intake Total 1050 250 Output Total 1001 Balance 1050 -751 Meds/Results Medications: Active Medications Generic Name Dose Route Start Last Admin Trade Name Freq PRN Reason Stop Dose Admin Amlodipine Besylate 10 mg 03/08/25 09:00 03/08/25 08:31 Amlodipine Besylate 10 Mg Tablet FEED TUBE 10 mg DAILY JAYME Administration Carvedilol 25 mg 03/08/25 08:00 03/08/25 08:33 Carvedilol 25 Mg Tablet FEED TUBE 25 mg Q12HR JAYME Administration Clonidine HCl 1 patch 03/08/25 09:00 03/08/25 05:48 Clonidine 0.2 Mg/24 Hr Patch TRANSDERM 1 patch WEEKLY JAYME Administration Dextrose 12.5 gm 03/07/25 22:02 Dextrose 50% 25 Gm/50 Ml Syringe IV PUSH PRN PRN Hypoglycemia Protocol Escitalopram Oxalate 10 mg 03/08/25 09:00 03/08/25 08:32 Escitalopram Oxalate 10 Mg Tablet FEED TUBE 10 mg DAILY JAYME Administration Glucagon 1 mg 03/07/25 22:02 Glucagon For Inj 1 Mg Vial IM PRN PRN Hypoglycemia Protocol Glucose 15 gm 03/07/25 22:02 Glucose Oral Gel 15 Gm Of Glucse In 37.5 Gm Tube PO PRN PRN Hypoglycemia Protocol Heparin Sodium (Beef Lung) 50 units 03/08/25 09:00 03/08/25 08:33 Heparin Flush 50 Units/5 Ml Syringe IV PUSH Not Given QAM JAYME Heparin Sodium (Beef Lung) 50 units 03/07/25 16:25 Heparin Flush 50 Units/5 Ml Syringe IV PUSH PRN PRN after intermittent infusion Heparin Sodium (Beef Lung) 50 units 03/07/25 16:25 Heparin Flush 50 Units/5 Ml Syringe IV PUSH PRN PRN after blood draws Heparin Sodium (Porcine) 500 units 03/07/25 16:25 Heparin Sodium Lock Flush 500 Units/5 Ml Syringe IV PUSH PRN PRN see comments below Dextrose 1,000 mls @ 100 mls/hr 03/07/25 22:02 Dextrose 5% 1,000 Ml IVPB PRN PRN Hypoglycemia Protocol Albumin Human 50 mls @ 999 mls/hr 03/08/25 08:29 Albutein IVPB 04/07/25 08:28 Q10M PRN HYPOTENSION Insulin Aspart 3 - 6 units 03/08/25 08:00 03/08/25 13:29 Insulin Aspart (*Bkc) 100 Units/Ml SUB-Q Not Given TIDWM JAYME Protocol Insulin Aspart 3 - 6 units 03/08/25 12:00 Insulin Aspart (*Bkc) 100 Units/Ml SUB-Q Q6HR JAYME Protocol Insulin Glargine 14.4 units 03/08/25 09:00 03/08/25 08:29 Insulin Glargine (*Bkc) 100 Units/Ml SUB-Q 14.4 units QAM JAYME Administration Isosorbide Mononitrate 30 mg 03/08/25 09:00 03/08/25 08:32 Isosorbide Mononitrate 30 Mg Tab.Er.24h PO 30 mg QAM JAYME Administration Losartan Potassium 50 mg 03/08/25 09:00 03/08/25 08:32 Losartan Potassium 50 Mg Tablet FEED TUBE 50 mg DAILY JAYME Administration Miscellaneous Information 0 each 03/08/25 00:01 03/08/25 10:34 Duplicate Sliding Scale- Please Dc If Not Needed. Per Rn Chuck Does Not Have Continuous XX 04/07/25 00:00 Not Given CLARIFY JAYME Pantoprazole Sodium 40 mg 03/08/25 09:00 03/08/25 08:32 Pantoprazole 40 Mg Tablet PO 40 mg Q12HR JAYME Administration Prochlorperazine Edisylate 10 mg 03/08/25 12:17 03/08/25 12:29 Prochlorperazine Edisylate 10 Mg/2 Ml Vial IV PUSH 10 mg Q6H PRN Administration Nausea And Vomiting Sevelamer Carbonate 800 mg 03/08/25 08:00 03/08/25 13:29 Sevelamer Carbonate 800 Mg Tablet FEED TUBE Not Given TIDWM JAYME Sodium Chloride 10 ml 03/07/25 22:00 03/08/25 13:31 Central Line Flush IV PUSH 10 ml Q8HR JAYME Administration Radiology Results: ITS Impressions Chest X-Ray 03/07/25 16:34 IMPRESSION: 1. Mild vascular congestion the lungs. 2. Port catheter and dialysis catheter are present as mentioned above. Head CT 03/07/25 18:41 IMPRESSION: 1. Limited noncontrast CT head shows no acute intracranial lesions. 2. Premature calcific changes of vertebral arteries at the skull base. Labs Labs: Laboratory Results - last 24 hr 03/07/25 03/07/25 03/07/25 17:09 18:47 21:56 WBC 4.6 RBC 4.13 L Hgb 11.7 L Hct 35.9 L MCV 86.9 MCH 28.3 MCHC 32.6 RDW 14.5 Plt Count 205 MPV 10.4 Immature Gran % (Auto) 0.2 Neut % (Auto) 64.2 Lymph % (Auto) 22.9 [place] % (Auto) 9.5 H Eos % (Auto) 3.0 Baso % (Auto) 0.2 Lymph # (Auto) 1.06 [place] # (Auto) 0.4 Eos # (Auto) 0.1 Baso # (Auto) 0.0 Abs Immat Gran (auto) 0.01 Absolute Neuts (auto) 3.0 Absolute Nucleated RBC 0.000 Nucleated RBC % 0.0 PT 14.4 INR 1.1 APTT 41.3 H Sodium 134 L Potassium 5.5 H Chloride 100 Carbon Dioxide 20 L Anion Gap 14 H BUN 34 H D Creatinine 7.35 H Estim Creat Clear Calc 9 Estimated GFR 7 L Glucose 394 H POC Capillary Glucose 380 H Calcium 7.6 L Magnesium 2.1 Total Bilirubin 0.7 AST 27 ALT 49 H Alkaline Phosphatase 214 H Troponin I < 0.012 Total Protein 7.4 Albumin 4.1 Lipase 44 03/08/25 03/08/25 03/08/25 00:22 04:20 07:30 WBC RBC Hgb Hct MCV MCH MCHC RDW Plt Count MPV Immature Gran % (Auto) Neut % (Auto) Lymph % (Auto) [place] % (Auto) Eos % (Auto) Baso % (Auto) Lymph # (Auto) [place] # (Auto) Eos # (Auto) Baso # (Auto) Abs Immat Gran (auto) Absolute Neuts (auto) Absolute Nucleated RBC Nucleated RBC % PT INR APTT Sodium 152 H Potassium 4.1 4.6 Chloride 102 Carbon Dioxide 22 Anion Gap 28 H BUN 39 H Creatinine 7.65 H Estim Creat Clear Calc 9 Estimated GFR 6 L Glucose 402 H POC Capillary Glucose 425 H Calcium 7.4 L Magnesium Total Bilirubin 0.5 AST 23 ALT 40 H Alkaline Phosphatase 206 H Troponin I Total Protein 6.7 Albumin 3.8 Lipase 03/08/25 03/08/25 03/08/25 09:13 11:11 13:27 WBC RBC Hgb Hct MCV MCH MCHC RDW Plt Count MPV Immature Gran % (Auto) Neut % (Auto) Lymph % (Auto) [place] % (Auto) Eos % (Auto) Baso % (Auto) Lymph # (Auto) [place] # (Auto) Eos # (Auto) Baso # (Auto) Abs Immat Gran (auto) Absolute Neuts (auto) Absolute Nucleated RBC Nucleated RBC % PT INR APTT Sodium Potassium Chloride Carbon Dioxide Anion Gap BUN Creatinine Estim Creat Clear Calc Estimated GFR Glucose POC Capillary Glucose > 500 H* 262 H 165 H Calcium Magnesium Total Bilirubin AST ALT Alkaline Phosphatase Troponin I Total Protein Albumin Lipase Quality VTE Prophylaxis VTE prophylaxis: mechanical ordered
--- NOTE | 2025-03-08 17:56 | PC.NURSE ---
Patient refusing tube feeds at this time.
--- NOTE | 2025-03-08 23:34 | PC.NURSE ---
IV Benadryl not given once ordered provider okayed for Benadryl 50mg IV to be given now.
[2025-03-09] VITALS (11 sets, daily range): BP systolic 144–184; BP diastolic 66–86; PULSE 93–103; RESP 14; TEMP 36.9–37.2; O2SAT 96–100
[2025-03-09] MEDS: CENTRAL LINE FLUSH 10 ML IV PUSH (05:30)
[2025-03-09 05:58] LABS: Alanine Aminotransferase 34 U/L (6-35); Albumin Level 3.8 g/dL (3.5-5.1); Alkaline Phosphatase 171 U/L (38-126); Anion Gap 15 mmol/L (4-12); Aspartate Amino Transferase 23 U/L (14-36); Bilirubin,Total 0.7 mg/dL (0.2-1.3); Blood Urea Nitrogen 17 mg/dL (7-17); Calcium 8.5 mg/dL (8.4-10.2); Carbon Dioxide 24 mmol/L (22-30); Chloride 96 mmol/L (98-107); Estimated CRCL calculation 13 ml/min; Estimated Glomerular Filt Rate 10; Glucose 233 mg/dL (65-110); Potassium 4.1 mmol/L (3.4-5.0); Sodium 135 mmol/L (137-145); Total Protein 6.8 g/dL (6.3-8.2)
--- NOTE | 2025-03-09 06:58 | PM.IMPN ---
Progress Note: A&P Assessment and Plan (1) Type 1 diabetes: Qualifiers: Diabetes mellitus complication status: with hyperglycemia Qualified Code(s): E10.65 - Type 1 diabetes mellitus with hyperglycemia Code(s): E10.9 - Type 1 diabetes mellitus without complications Status: Chronic Assessment and Plan: -the patient was diagnosed when she was 7 years old. The patient currently does not have an Omnipod as her equipment is not working the way it should. She has not been able to get in to the supplier to have her limit fix. However she does have a continuous glucose monitor . -she is a very brittle diabetic. She has extreme highs and lows. -today she has mild ketosis. Her anion gap is 14. She was given half of a L of fluids in the emergency room. She was also given insulin as well. -Accu-Cheks AC and HS with sliding scale insulin. -pharmacy to calculate 20% of home dose which is Lantus 18 units. -her blood sugars are currently in the 300s. -A1c on 01/01/2025 was 8.4 -the patient does have an outsole leveler at [facility] -she has multiple complications due to her diabetes such as nephropathy, neuropathy, and gastroparesis. (2) Hypertension: Qualifiers: Hypertension type: primary hypertension Qualified Code(s): I10 - Essential (primary) hypertension Code(s): I10 - Essential (primary) hypertension Status: Chronic Assessment and Plan: -the patient stated that she stop taking her metoprolol because of complications with her JG tube. -the patient stated that she did well with the clonidine patch last admission and will like to continue with that have prescriptions when she is discharged. -continue with Coreg. -S/P labetalol in the emergency room. -continue with amlodipine -continue losartan. -goal for blood pressure should be somewhere around 130/70. -continue with isosorbide. (3) Malingering: Code(s): Z76.5 - Malingerer [conscious simulation] Status: Acute Assessment and Plan: -the patient has been evaluated by a psychiatrist to last admission. The patient was discussing palliative care because she is wanting IV Benadryl and pain medications at home. (4) Depression: Code(s): F32.9 - Major depressive disorder, single episode, unspecified Status: Acute Assessment and Plan: -continue with Lexapro. The patient denies depression. (5) Intractable nausea and vomiting: Code(s): R11.2 - Nausea with vomiting, unspecified Status: Chronic Assessment and Plan: -the patient stated that she has allergies to Reglan and tigan. -she is on Zofran at home. Will given IV here. -she also stated that IV Benadryl helps with the nausea. (6) Acute abdominal pain: Code(s): R10.9 - Unspecified abdominal pain Status: Acute Assessment and Plan: -p.r.n. Dilaudid. The patient is requesting [facility] for pain medication. I suggested that she reach out to pain management outpatient. (7) End stage renal disease on dialysis: Code(s): N18.6 - End stage renal disease; Z99.2 - Dependence on renal dialysis Status: Chronic Assessment and Plan: -she has dialysis on Wednesday. The patient stated that she went this past Wednesday. -nephrology has been consulted. -monitor daily electrolytes. (8) Acute hyperkalemia: Code(s): E87.5 - Hyperkalemia Status: Acute Assessment and Plan: -patient's potassium was 5.5 and she was given D50, insulin, calcium gluconate, and sodium bicarb, -on her EKG she did have some peaked P waves. -repeat potassium level in 4 hours. And treat accordingly. -daily BMPs -she has end-stage renal disease and has dialysis Wednesday. The patient stated that she did have dialysis on Wednesday. (9) Anemia: Code(s): D64.9 - Anemia, unspecified Status: Chronic Assessment and Plan: -the patient has chronic anemia of chronic disease end-stage renal disease. The patient is above her baseline. Her current H&H is 11.7 and 35.9 P (10) Diabetic gastroparesis: Code(s): E11.43 - Type 2 diabetes mellitus with diabetic autonomic (poly)neuropathy; K31.84 - Gastroparesis Status: Chronic Assessment and Plan: -she has a outsole leveler at [facility]. -she also has a gastric stimulator. -she also has a JG tube and gets tube feedings from 6:00 p.m. to a 8:10 a.m. when she is not nauseated. She takes a nephro. She stated that her medications go to the JG tube. She also eats at times. -she deals with chronic nausea and stated that IV Benadryl Yesi thing that helps her. (11) Headache: Code(s): R51.9 - Headache, unspecified Status: Acute Assessment and Plan: -the patient was given Dilaudid in the emergency room was appears to be helping. -Head CT 03/07/25 18:41 IMPRESSION: 1. Limited noncontrast CT head shows no acute intracranial lesions. 2. Premature calcific changes of vertebral arteries at the skull base. No nuchal rigidity disease noted. Subjective Date/time seen: 03/09/25 06:58 Interval history: Patient complains of nausea. Patient reports having type 1 diabetes, migraine and gastroparesis. Patient requesting IV Benadryl. Patient currently has a G-tube for medication. Patient undergoes dialysis. Review of Systems Constitutional: Constitutional: Reports as per HPI and Reports no additional constitutional complaints Eyes: Eyes: Reports as per HPI and Reports no additional eye complaints ENT: Reports system reviewed and no additional complaints, except as documented and Reports Normal hearing present Cardiovascular: Cardiovascular: Reports no additional cardiovascular complaints Respiratory: Respiratory: Reports as per HPI and Reports no additional respiratory complaints Gastrointestinal: Gastrointestinal: Reports as per HPI and Reports no additional gastrointestinal complaints Genitourinary: Genitourinary: Reports no additional female genitourinary complaints Musculoskeletal: Musculoskeletal: Reports no additional musculoskeletal complaints Integumentary/Breasts: Skin/Breast: Reports system reviewed and no additional complaints, except as docu Neurologic: Reports system reviewed and no additional complaints, except as documented and Reports Normal hearing present Psychiatric: Psychiatric: Reports no additional psychiatric complaints and Reports as per HPI Hematologic/Lymphatic: Hematologic/Lymphatic: Reports no additional hematologic/lymphatic complaints Allergic/Immunologic: Allergic/Immunologic: Reports no additional allergic/immunologic complaints Exam Const: General: cooperative, comfortable, no acute distress, well developed, awake, Physically active, average body habitus and well nourished Nutritional Appearance: average body habitus and well nourished Orientation/consciousness: oriented to person, oriented to place, oriented to time and patient oriented x3 Limitations: no limitations HENMT: Head: normal to inspection, No palpable skull fracture present, normocephalic, atraumatic and abrasion Ears: hearing grossly normal bilaterally and external ears normal Eyes: General: appearance normal, both eyes and all related structures Alignment and Position: alignment normal Periorbital: periorbital findings normal Pupils: Equal, round and reactive pupils present Neck: Neck: normal visual inspection, full ROM and no lymphadenopathy Chest: Chest palpation & inspection: normal inspection of the chest Other: port a cath intact to left upper chest and dialysis catheter intact to right upper chest Resp: Effort & Inspection: normal respiratory effort Auscultation: clear to auscultation bilaterally Percussion: percussion normal Cardio: Palpation: normal PMI Rate: regular rate Rhythm: regular rhythm Heart sounds: S1 normal heart sound present and S2 normal heart sound present Peripheral pulses: Peripheral pulses 2+ throughout GI: Inspection: normal to inspection Auscultation: normal bowel sounds Rectal Exam: deferred Other: jg tube intact to left upper abdomen : General: Yes no CVA tenderness Back/Spine/Pelvis: Back: no CVA tenderness Skin: General skin exam: normal color Lesions: no lesions Rashes: no rashes Trauma: no lacerations or abrasions Wounds: no wounds Hair: normal Nails: normal Neuro: General: oriented to person, oriented to place, oriented to time and patient oriented x3 Cranial nerves: Yes Equal, round and reactive pupils present and Yes Normal hearing present Cognition (Neuro): normal cognition Speech: normal speech Gait exam (Neuro): Normal gait present Motor exam (neuro): 5/5 motor strength present throughout Sensory Exam: normal sensation Extrem: General: normal to inspection Right upper extremity: normal to inspection and shoulder/upper arm Left upper extremity: normal to inspection and shoulder/upper arm Right lower extremity: normal to inspection Left lower extremity: normal to inspection Psych: Appearance: grossly normal Mental Status: mental status grossly normal Speech and movement: Normal speech and movement present Affect: normal affect Attitude: cooperative Thought process: Normal thought process present Insight: Good insight present (Psych) Judgement: Good judgement present (Psych) Objective Data Vital Signs Vital Signs: Vital Signs - 24 hr 03/08/25 08:00 03/08/25 08:00 03/08/25 08:00 Temperature 97.7 F Pulse Rate 109 H 108 H Respiratory Rate 16 Blood Pressure 220/117 H Pulse Oximetry 100 Oxygen Delivery Room Air 03/08/25 08:07 03/08/25 08:33 03/08/25 09:19 Temperature Pulse Rate 116 H 105 H Respiratory Rate Blood Pressure 210/109 H 179/96 H Pulse Oximetry Oxygen Delivery 03/08/25 09:33 03/08/25 09:47 03/08/25 10:00 Temperature 98.2 F Pulse Rate 96 95 95 Respiratory Rate 16 Blood Pressure 184/112 H 182/109 H Pulse Oximetry 100 Oxygen Delivery 03/08/25 10:00 03/08/25 10:15 03/08/25 10:30 Temperature Pulse Rate 96 95 83 Respiratory Rate Blood Pressure 178/111 H 155/100 H 166/99 H Pulse Oximetry Oxygen Delivery 03/08/25 10:45 03/08/25 11:00 03/08/25 11:15 Temperature Pulse Rate 94 92 95 Respiratory Rate Blood Pressure 164/96 H 153/93 H 180/99 H Pulse Oximetry Oxygen Delivery 03/08/25 11:30 03/08/25 11:45 03/08/25 12:00 Temperature Pulse Rate 94 100 115 H Respiratory Rate Blood Pressure 172/102 H 184/113 H 221/136 H Pulse Oximetry Oxygen Delivery 03/08/25 12:00 03/08/25 12:15 03/08/25 12:30 Temperature Pulse Rate 114 H 102 H 103 H Respiratory Rate Blood Pressure 186/114 H 176/111 H Pulse Oximetry Oxygen Delivery 03/08/25 12:49 03/08/25 12:53 03/08/25 13:25 Temperature 97.9 F 97.5 F L Pulse Rate 98 95 85 Respiratory Rate 12 12 Blood Pressure 182/110 H 180/102 H 183/91 H Pulse Oximetry 100 98 Oxygen Delivery 03/08/25 14:00 03/08/25 15:43 03/08/25 16:00 Temperature 98.4 F Pulse Rate 100 101 H Respiratory Rate 12 Blood Pressure 176/97 H Pulse Oximetry 99 Oxygen Delivery Room Air 03/08/25 16:00 03/08/25 18:00 03/08/25 20:00 Temperature 98.8 F Pulse Rate 99 103 H 100 Respiratory Rate 14 Blood Pressure 177/85 H Pulse Oximetry 100 Oxygen Delivery 03/08/25 20:00 03/08/25 20:00 03/08/25 22:00 Temperature Pulse Rate 99 94 Respiratory Rate Blood Pressure Pulse Oximetry Oxygen Delivery Room Air 03/08/25 23:44 03/09/25 00:00 03/09/25 00:00 Temperature 97.8 F Pulse Rate 108 H 99 Respiratory Rate 14 Blood Pressure 207/108 H Pulse Oximetry 100 Oxygen Delivery Room Air 03/09/25 00:47 03/09/25 02:00 03/09/25 03:43 Temperature 98.4 F Pulse Rate 100 94 97 Respiratory Rate 14 Blood Pressure 184/85 H Pulse Oximetry 100 Oxygen Delivery 03/09/25 04:00 03/09/25 04:00 03/09/25 06:00 Temperature Pulse Rate 96 96 Respiratory Rate Blood Pressure Pulse Oximetry Oxygen Delivery Room Air Intake/Output Intake/Output: Intake & Output 03/06/25 03/07/25 03/08/25 03/09/25 23:59 23:59 23:59 23:59 Intake Total 1050 700 300 Output Total 1001 0 Balance 1050 -301 300 Meds/Results Medications: Active Medications Generic Name Dose Route Start Last Admin Trade Name Freq PRN Reason Stop Dose Admin Amlodipine Besylate 10 mg 03/08/25 09:00 03/08/25 08:31 Amlodipine Besylate 10 Mg Tablet FEED TUBE 10 mg DAILY JAYME Administration Carvedilol 25 mg 03/08/25 08:00 03/08/25 21:27 Carvedilol 25 Mg Tablet FEED TUBE Not Given Q12HR JAYME Clonidine HCl 1 patch 03/08/25 09:00 03/08/25 05:48 Clonidine 0.2 Mg/24 Hr Patch TRANSDERM 1 patch WEEKLY JAYME Administration Dextrose 12.5 gm 03/07/25 22:02 Dextrose 50% 25 Gm/50 Ml Syringe IV PUSH PRN PRN Hypoglycemia Protocol Escitalopram Oxalate 10 mg 03/08/25 09:00 03/08/25 08:32 Escitalopram Oxalate 10 Mg Tablet FEED TUBE 10 mg DAILY JAYME Administration Glucagon 1 mg 03/07/25 22:02 Glucagon For Inj 1 Mg Vial IM PRN PRN Hypoglycemia Protocol Glucose 15 gm 03/07/25 22:02 Glucose Oral Gel 15 Gm Of Glucse In 37.5 Gm Tube PO PRN PRN Hypoglycemia Protocol Heparin Sodium (Beef Lung) 50 units 03/08/25 09:00 03/08/25 08:33 Heparin Flush 50 Units/5 Ml Syringe IV PUSH Not Given QAM JAYME Heparin Sodium (Beef Lung) 50 units 03/07/25 16:25 Heparin Flush 50 Units/5 Ml Syringe IV PUSH PRN PRN after intermittent infusion Heparin Sodium (Beef Lung) 50 units 03/07/25 16:25 Heparin Flush 50 Units/5 Ml Syringe IV PUSH PRN PRN after blood draws Heparin Sodium (Porcine) 500 units 03/07/25 16:25 Heparin Sodium Lock Flush 500 Units/5 Ml Syringe IV PUSH PRN PRN see comments below Dextrose 1,000 mls @ 100 mls/hr 03/07/25 22:02 Dextrose 5% 1,000 Ml IVPB PRN PRN Hypoglycemia Protocol Albumin Human 50 mls @ 999 mls/hr 03/08/25 08:29 Albutein IVPB 04/07/25 08:28 Q10M PRN HYPOTENSION Insulin Aspart 3 - 6 units 03/08/25 08:00 03/08/25 16:25 Insulin Aspart (*Bkc) 100 Units/Ml SUB-Q Not Given TIDWM JAYME Protocol Insulin Aspart 3 - 6 units 03/08/25 12:00 Insulin Aspart (*Bkc) 100 Units/Ml SUB-Q Q6HR JAYME Protocol Insulin Glargine 14.4 units 03/08/25 09:00 03/08/25 08:29 Insulin Glargine (*Bkc) 100 Units/Ml SUB-Q 14.4 units QAM JAYME Administration Isosorbide Mononitrate 30 mg 03/08/25 09:00 03/08/25 08:32 Isosorbide Mononitrate 30 Mg Tab.Er.24h PO 30 mg QAM JAYME Administration Losartan Potassium 50 mg 03/08/25 09:00 03/08/25 08:32 Losartan Potassium 50 Mg Tablet FEED TUBE 50 mg DAILY JAYME Administration Miscellaneous Information 0 each 03/08/25 00:01 03/09/25 00:54 Duplicate Sliding Scale- Please Dc If Not Needed. Per Rn Chuck Does Not Have Continuous XX 04/07/25 00:00 Not Given CLARIFY JAYME Pantoprazole Sodium 40 mg 03/08/25 09:00 03/08/25 21:27 Pantoprazole 40 Mg Tablet PO Not Given Q12HR JAYME Prochlorperazine Edisylate 10 mg 03/08/25 12:17 03/08/25 20:28 Prochlorperazine Edisylate 10 Mg/2 Ml Vial IV PUSH 10 mg Q6H PRN Administration Nausea And Vomiting Sevelamer Carbonate 800 mg 03/08/25 08:00 03/08/25 16:25 Sevelamer Carbonate 800 Mg Tablet FEED TUBE Not Given TIDWM JAYME Sodium Chloride 10 ml 03/07/25 22:00 03/09/25 05:30 Central Line Flush IV PUSH 10 ml Q8HR JAYME Administration Radiology Results: ITS Impressions Chest X-Ray 03/07/25 16:34 IMPRESSION: 1. Mild vascular congestion the lungs. 2. Port catheter and dialysis catheter are present as mentioned above. Head CT 03/07/25 18:41 IMPRESSION: 1. Limited noncontrast CT head shows no acute intracranial lesions. 2. Premature calcific changes of vertebral arteries at the skull base. Labs Labs: Laboratory Results - last 24 hr 03/08/25 03/08/25 03/08/25 07:30 09:13 11:11 Sodium Potassium Chloride Carbon Dioxide Anion Gap BUN Creatinine Estim Creat Clear Calc Estimated GFR Glucose POC Capillary Glucose 425 H > 500 H* 262 H Calcium Total Bilirubin AST ALT Alkaline Phosphatase Total Protein Albumin 03/08/25 03/08/25 03/08/25 13:27 15:57 20:13 Sodium Potassium Chloride Carbon Dioxide Anion Gap BUN Creatinine Estim Creat Clear Calc Estimated GFR Glucose POC Capillary Glucose 165 H 166 H 161 H Calcium Total Bilirubin AST ALT Alkaline Phosphatase Total Protein Albumin 03/09/25 05:22 Sodium 135 L Potassium 4.1 Chloride 96 L Carbon Dioxide 24 Anion Gap 15 H BUN 17 D Creatinine 4.99 H Estim Creat Clear Calc 13 Estimated GFR 10 L Glucose 233 H POC Capillary Glucose Calcium 8.5 Total Bilirubin 0.7 AST 23 ALT 34 Alkaline Phosphatase 171 H Total Protein 6.8 Albumin 3.8 Quality VTE Prophylaxis VTE prophylaxis: mechanical ordered Hospitalist [facility] Advance Care Plan I have confirmed that the patient's Advanced Care Plan is present, code status is documented, or surrogate decision maker is listed in patient medical record.: Yes Medication Reconciliation I have utilized all available resources to obtain, update and review the patients current medications (includes all prescriptions, OTC, herbals, cannabis, and nutritional supplements).: Yes
[2025-03-09] MEDS: LOSARTAN POTASSIUM 50 MG TABLET FEED TUBE (08:42)
[2025-03-09] MEDS: ESCITALOPRAM OXALATE 10 MG TABLET FEED TUBE (08:42)
[2025-03-09] MEDS: INSULIN GLARGINE (*BKC) 100 UNITS/ML 14.4 UNITS SUB-Q (08:46)
[2025-03-09] MEDS: INSULIN ASPART (*BKC) 100 UNITS/ML SUB-Q ×2 (08:48→11:55)
[2025-03-09] MEDS: PROCHLORPERAZINE EDISYLATE 10 MG/2 ML VIAL IV PUSH (08:55)
--- NOTE | 2025-03-09 10:15 | PM.CNNEP ---
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 Odilon Tellez (2) Hypertension: Qualifiers: Hypertension type: primary hypertension Qualified Code(s): I10 - Essential (primary) hypertension Code(s): I10 - Essential (primary) hypertension Status: Chronic Assessment and Plan: quite elevated on presentation started on clonidine patch resumed on home medications follow trend of hemodynamics (3) Headache: Code(s): R51.9 - Headache, unspecified Status: Acute Assessment and Plan: possibly due to #2(?) head CT negative continue supportive therapay (4) Intractable nausea and vomiting: Code(s): R11.2 - Nausea with vomiting, unspecified Status: Chronic Assessment and Plan: chronic and long standing issue (per patient and review of records) cyclic in nature -- just discharged for this issue 5 days ago... thought to be secondary to diabetic gastroparesis s/p G-J-tube placement to ensure adequate/supplemental nutrition given this issue continue instituted therapy (5) Diabetic gastroparesis: Code(s): E11.43 - Type 2 diabetes mellitus with diabetic autonomic (poly)neuropathy; K31.84 - Gastroparesis Status: Chronic Assessment and Plan: known and long standing issue likely precipiting factor for admission symptoms (6) Anemia: Code(s): D64.9 - Anemia, unspecified Status: Chronic Assessment and Plan: due to ESRD H/H in range at this time Epogen with HD for now follow trend of H/H (7) Type 1 diabetes: Qualifiers: Diabetes mellitus complication status: with hyperglycemia Qualified Code(s): E10.65 - Type 1 diabetes mellitus with hyperglycemia Code(s): E10.9 - Type 1 diabetes mellitus without complications Status: Chronic Assessment and Plan: follow accu-cheks glycemic control per hospitalist I will continue to follow the patient with you while she remains hospitalized and make further recommendations as deemed necessary. Thank you for allowing me to participate in the care of this patient. History of Present Illness Reason for Consult Consult date: 03/09/25 Reason for consult: end stage renal disease Chief Complaint Chief complaint: Hyperkalemia/Arf History of Present Illness Narrative: The patient is a 29-year-old female with extensive past medical history as outlined below who presented to [facility] Emergency Room with nausea and vomiting, abdominal pain, and headache. The patient has a somewhat long extensive history of protracted nausea and vomiting secondary to her poorly-controlled diabetic gastroparesis. She was just recently discharged from [facility] about 5 days ago for the same symptoms. During that hospital stay, the focus of therapy was symptom control which was unfortunately complicated by the fact that the only apparent medications that seemed to help with her symptoms are IV Benadryl and IV Dilaudid. There has been some concern for possible drug-seeking behavior with regard to her use of IV Benadryl and IV Dilaudid on previous hospitalizations at [facility] in [place]. Following her discharge from here at [facility] several days ago, she had recurrence of her nausea and vomiting coupled with a headache and elevated BP readings at home until she finally decided come to the emergency room for further assessment. Workup and evaluation emergency room demonstrated the patient to be quite hypertensive with a systolic BP greater than 200 In association with mild tachycardia and mild distress secondary to her nausea, vomiting, and abdominal pain. routine blood work demonstrated labs consistent with her known history of end-stage renal disease although her potassium was mildly elevated 5.5 with associated relative anemia with a hemoglobin of 11.7 consistent with her baseline. Her EKG showed normal sinus rhythm and peak T-waves presumably secondary to her mild hyperkalemia. Her glucose was elevated at 394 with a mildly elevated ALT of 49 and alkaline phosphatase of 214. Her head CT demonstrated no acute intracranial process and her chest x-ray showed mild vascular congestion the lungs with a noted tequila catheter and dialysis catheter in place. She received a dose of IV labetalol which improved her blood pressure to the 160 systolic range as well as Zofran, Dilaudid, and Benadryl for her nausea/vomiting and abdominal pain. She received medical management for her mild hyperkalemia. Given her constellation of symptoms as mentioned, she was admitted to hospital for further evaluation and therapy. Since her admission, her blood pressure has been fluctuating but still better than what it was on admission. She did receive dialysis yesterday here in the hospital in effort to maintain her normal outpatient dialysis schedule and stabilize her electrolytes and volume status. Renal consultation was requested due to her end-stage renal disease. The patient normally dialyzes on a Wednesday, , Wednesday [place] [facility] [place] under the care of Dr. Odilon Tellez. She states that she has been on dialysis for about a year or so and that her kidney disease is secondary to her type 1 diabetes. Her last dialysis treatment was on Wednesday (on 03/06) at her outpatient dialysis center. As already mentioned above, she has had multiple admissions for nausea and cyclic vomiting in association with a diabetic gastroparesis with her most recent hospitalization here at [facility] with subsequent discharge about 4-5 days ago as noted above. Currently, the time my evaluation, she is resting comfortably and in no acute distress. Review of Systems Review of Systems: As per HPI. [facility] Past Medical History Medical History (Updated 03/08/25 @ 18:05 by Lisa Franks MD) Munchausen's syndrome Malingering Abdominal pain Hyperkalemia End stage renal disease Anemia in chronic kidney disease Port-A-Cath in place Type 1 diabetes Diagnosed at age 7 Diabetic gastroparesis Depression Surgical History Surgical History S/P dialysis catheter insertion (~2022) Status post insertion of percutaneous endoscopic gastrostomy (PEG) tube For gastric drainage Status post jejunostomy (12/2024) For feeds History of cholecystectomy Family History Family History Grandparent Family history of cardiovascular disease Social History Social History Social History: She is not and does not have any children. She lives with her mother and is on disability. She is a lifelong nonsmoker and does not drink alcohol or use illicit substances. Code status: Full code Surrogate decision maker: Mother Smoking status: Never smoker Alcohol intake: never Substance use: never Substance use type: does not use Lack of Transportation: No Lack of Food: Never True Current Housing: I Have Housing Concerned About Future Housing: No Difficulty Paying Gas/Electric Bills: No Difficulty Paying for Meds: No Currently Unemployed: No Education: High School Diploma/GED Difficulty w/ Childcare or Family Care: No Gender identity (if verbalized by the patient): Female Spiritual care concerns: No Meds Home Medications and Allergies Home Medications ?Medication ?Instructions ?Recorded ?Confirmed ?Type insulin lispro 100 unit/mL 1 sliding scale dose subcut PRN 06/02/22 03/07/25 History subcutaneous pen losartan 25 mg tablet 25 mg feeding tube DAILY 06/02/22 03/07/25 History amlodipine 10 mg tablet 10 mg feeding tube DAILY 01/01/25 03/07/25 History carvedilol 12.5 mg tablet 12.5 mg feeding tube Q12H 01/01/25 03/07/25 History escitalopram oxalate 10 mg tablet 10 mg feeding tube DAILY 01/01/25 03/07/25 History glucagon 0.5 mg/0.1 mL 0.5 mg subcut PRN PRN hypoglycemia 01/01/25 03/07/25 History subcutaneous auto-injector ([employer] HypoPen 2-Pack) isosorbide mononitrate 30 mg 30 mg PO QAM 30 days #30 tabs 01/05/25 03/07/25 Rx tablet,extended release 24 hr clonidine 0.1 mg/24 hr weekly 1 patch transdermal WEEKLY 03/07/25 03/07/25 History transdermal patch (Klteskcv-BIB-0) insulin glargine 100 unit/mL (3 18 unit subcut .AM 03/07/25 03/07/25 History mL) subcutaneous pen (Lantus Solostar U-100 Insulin) ondansetron 4 mg disintegrating 4 mg feeding tube Q6H 03/07/25 03/07/25 History tablet pantoprazole 40 mg tablet,delayed 40 mg PO BID 03/07/25 03/07/25 History release sevelamer carbonate 800 mg tablet 800 mg feeding tube .tid with meals 03/07/25 03/07/25 History (Renvela) Allergies Allergy/AdvReac Type Severity Reaction Status Date / Time metoclopramide (From Reglan) Allergy Intermediate Muscle Verified 03/07/25 21:13 Spasms trimethobenzamide (From Allergy Intermediate hives Verified 03/07/25 21:13 Tigan) hydralazine Allergy Hives Verified 03/07/25 21:13 Vital Signs Vital Signs Temp Pulse Resp BP Pulse Ox O2 Del Method 03/09/25 10:00 93 03/09/25 08:42 103 H 03/09/25 08:28 96 Room Air 03/09/25 08:00 103 H 03/09/25 08:00 99.0 F 100 14 182/86 H 97 03/09/25 06:00 96 03/09/25 04:00 96 03/09/25 04:00 Room Air 03/09/25 03:43 98.4 F 97 14 184/85 H 100 03/09/25 02:00 94 03/09/25 00:47 100 03/09/25 00:00 99 03/09/25 00:00 Room Air 03/08/25 23:44 97.8 F 108 H 14 207/108 H 100 Exam Narrative: GENERAL APPEARANCE: well developed well nourished female in no acute distress HEENT: normocephalic, atraumatic, normal conjunctiva and sclera, nares patient NECK: no lymphadenopathy, thyromegaly, or JVD MOUTH: normal lips, teeth, and gums CARDIOVASCULAR: RRR, normal S1 and S2, no rub RESPIRATORY: clear to auscultation ABDOMEN: soft, nontender, nondistended, positive bowel sounds present EXTREMITIES: no evidence of cyanosis, clubbing, or edema NEUROLOGICAL: alert and oriented x 3; CN II - XII intact bilaterally; no focal deficits noted Results Lab Results 03/07/25 17:09 03/09/25 05:22 Lab results: Most recent lab results Calcium 8.5 mg/dL (8.4-10.2) 03/09/25 05:22 Magnesium 2.1 mg/dL (1.6-2.3) 03/07/25 21:56
--- NOTE | 2025-03-09 10:18 | PCNFU ---
Nutrition Follow-Up Complete: Suboptimal Energy Intake as related to Intractable Nausea/Vomiting as evidenced by J tube feedings intolerance and poor po intake reported. Goal:Meet estimated nutritional needs Pt meeting goal via tube feeding Pt current nutrition is Regular diet, Tube feeding: Nepro @ 45ml/hr 6p-10a with 100ml flushes q 4hrs to provide 1782kcals, 80g protein, 1320ml free water. Nutrition recommendation: continue with current plan of care Last recorded weight is 63.5 kg. Bowel Motility: +BM 03/08 Labs Reviewed: NA:135, GFR:10, Cr:4.9, Glu:233 Meds Noted: protonix, lantus, novolog Skin: WNL Additional Notes: Pt continues on a regular diet, minimal intake per usual. Tube feeding running per home regimen, pt tolerating well, meeting estimated needs. Agree with orders. Will monitor weight, labs, skin, diet orders, meds every Wednesday and Wednesday.
[2025-03-09] MEDS: ONDANSETRON HCL ODT 4 MG TABLET PO (11:53)
--- NOTE | 2025-03-09 12:25 | P.DS_ITS ---
DS: Admitting Diagnosis Discharge Date 03/09/2025 Admitting Diagnosis Headache and nausea DS: Summary Hospital Course Hospital Course: [age]-year-old female patient who has a history of diabetes type 1 diagnosed at the age of 77 years old, do pressure, chronic abdominal pain, and end-stage renal disease on dialysis Wednesday. The patient has a GI specialist at [facility]. She has a GJ tube. The patient stated that she had been prescribed metoprolol succinate but is not been taking it due to her nausea. She stated that she takes most of her medications in the GJ tube. She did receive dialysis yesterday. The patient stated that she is nauseated on and off and has been having difficulty eating recently. She does have a tube feeding during the night. She is a very brittle diabetic. She came in today because she was having a headache and nausea. Her blood pressure today was 215/ 126. The patient was given Dilaudid, Zofran, and labetalol in the emergency room. Her blood pressure is now 160/92. Her H&H is currently 11.7 and 35.9. Which is above her baseline. She has anemia of chronic disease related to the chronic renal failure. The patient's potassium was found to be 5.5. Her EKG showed normal sinus rhythm with some left ventricular hypertrophy and peaked T-waves anterior septal leads consider hyper acute injury versus hyperkalemia. She was given 6 units of regular insulin, D50 25 g, calcium gluconate, sodium bicarb, and normal saline. However the patient only received 500 mL of the IV fluids due to her end-stage renal failure. Sodium level 134, carbon dioxide 20, anion gap 14, BUN 34, creatinine 7.35. GFR is 7 and her glucose is 394. ALT is 49 and alkaline phosphatase 214. Head CT was read as a followingIMPRESSION: 1. Limited noncontrast CT head shows no acute intracranial lesions. 2. Premature calcific changes of vertebral arteries at the skull base. Chest x-ray was read as a followingIMPRESSION: 1. Mild vascular congestion the lungs. 2. Port catheter and dialysis catheter are present as mentioned above. Patient was evaluated the bedside. Patient wants IV Benadryl for her headache. Later nursing team report patient wanted to leave AMA Time Spent with Patient Time attestation: Total time spent providing and/or coordinating discharge services: DS: Data Data Completed and Pending Labs on day of discharge: Labs from last 24 hours 03/09/25 03/09/25 03/09/25 11:19 10:17 07:09 Sodium Potassium Chloride Carbon Dioxide Anion Gap BUN Creatinine Estim Creat Clear Calc Estimated GFR Glucose POC Capillary Glucose 227 H 291 H 268 H Calcium Total Bilirubin AST ALT Alkaline Phosphatase Total Protein Albumin 03/09/25 03/08/25 03/08/25 05:22 20:13 15:57 Sodium 135 L Potassium 4.1 Chloride 96 L Carbon Dioxide 24 Anion Gap 15 H BUN 17 D Creatinine 4.99 H Estim Creat Clear Calc 13 Estimated GFR 10 L Glucose 233 H POC Capillary Glucose 161 H 166 H Calcium 8.5 Total Bilirubin 0.7 AST 23 ALT 34 Alkaline Phosphatase 171 H Total Protein 6.8 Albumin 3.8 03/08/25 13:27 Sodium Potassium Chloride Carbon Dioxide Anion Gap BUN Creatinine Estim Creat Clear Calc Estimated GFR Glucose POC Capillary Glucose 165 H Calcium Total Bilirubin AST ALT Alkaline Phosphatase Total Protein Albumin Discharge Plan Discharge Consulting providers: Vaishali Allison; Lisa Franks Patient Disposition: Left Against Medical Advice Patient Language: Jordanian Discharge Medications: No Action losartan 25 mg tablet 25 mg feeding tube DAILY insulin lispro 100 unit/mL insulin pen 1 sliding scale dose SUBCUT PRN carvedilol 12.5 mg tablet 12.5 mg feeding tube Q12H amlodipine 10 mg tablet 10 mg feeding tube DAILY escitalopram oxalate 10 mg tablet 10 mg feeding tube DAILY [employer] HypoPen 2-Pack 0.5 mg/0.1 mL auto-injector 0.5 mg SUBCUT PRN PRN (Reason: hypoglycemia) isosorbide mononitrate 30 mg Tablet Extended Release 24 Hr 30 mg PO QAM 30 Days Qty: 30 1RF pantoprazole 40 mg Tablet,Delayed Release (Dr/Ec) 40 mg PO BID insulin glargine [Lantus Solostar U-100 Insulin] 100 unit/mL (3 mL) insulin pen 18 unit SUBCUT .AM clonidine [Kiccpvqh-MEX-0] 0.1 mg/24 hr patch weekly 1 patch transdermal WEEKLY sevelamer carbonate [Renvela] 800 mg tablet 800 mg feeding tube .tid with meals Rx Instructions: must administer with a meal/food ondansetron 4 mg tablet,disintegrating 4 mg feeding tube Q6H Date of admission: 03/07/25 19:39 Primary Care Provider: Luis Carlos,Edgardo Mak Admitting Provider: Bharat Beauchamp Attending physician on admission: Bharat Beauchamp Condition: Improved
--- NOTE | 2025-03-09 12:27 | PC.NURSE ---
Report given to Med Surg nurse Gloria. Before transfer happened patient wanted to leave AMA. Dr. MEADOWS notified and JOCELINE verma explained and signed with patient. Port de-accessed.
== END 2025-03-09 12:25 | disposition left against medical advice (07) ==
LOC: ANHED 19:37 → ANHIMU 20:19
PROVIDERS: Emergency Medicine; Nurse Practitioner; Admitting Provider General Practice; Emergency Provider Emergency Medicine; PCP Family Medicine; Visit Provider General Practice
DX: E10.65 Type 1 diabetes mellitus with hyperglycemia (principal); E10.22 Type 1 diabetes mellitus with diabetic chronic kidney disease; N18.6 End stage renal disease; Z99.2 Dependence on renal dialysis; R11.2 Nausea with vomiting, unspecified; R10.9 Unspecified abdominal pain; E87.5 Hyperkalemia; D64.9 Anemia, unspecified; E10.43 Type 1 diabetes mellitus with diabetic autonomic (poly)neuropathy; K31.84 Gastroparesis; R51.9 Headache, unspecified; Z79.4 Long term (current) use of insulin; Z79.84 Long term (current) use of oral hypoglycemic drugs; Z93.1 Gastrostomy status; Z76.5 Malingerer [conscious simulation]; F32.9 Major depressive disorder, single episode, unspecified
CPT/HCPCS: 36415; 70450; 71045; 80053; 82948; 83690; 83735; 84132; 84484; 85025; 85610; 85730; 87040; 93005; 96365; 96375; 96376; 99285; A9270; G0257; G0378; J0612; J0780; J1171; J1200; J1642; J1644; J1815; J2405; J7030